=== PATIENT | male | born 1965 | race Caucasian/White ===

== ENCOUNTER 2021-10-15 10:41 | Outpatient (CLI) | payer MEDICAID, SELFPAY ==
[2021-10-15 13:40] LABS: Chloride* 100 mmol/L (96-114); Potassium* 4.4 mmol/L (3.6-5.1); Sodium* 138 mmol/L (135-149)
[2021-10-15 13:42] LABS: Alanine Aminotransferase* 61 U/L (4-50); Carbon Dioxide* 28 mmol/L (20-32); Cholesterol* 167 mg/dL (90-199); Creatinine* 1.1 mg/dL (0.5-1.5); Estimated Glomerular Filt Rate 79 ml/min
[2021-10-15 13:43] LABS: Blood Urea Nitrogen* 15 mg/dL (7-30); Calcium* 9.6 mg/dL (8.4-10.6); Glucose* 114 mg/dL (60-115); HDL Cholesterol* 55 mg/dL (>=40); LDL Cholesterol Calculated 69 mg/dL (<100); Triglycerides* 214 mg/dL (40-149)
[2021-10-15 13:46] LABS: Basophils Absolute Auto 0.03 K/uL (0.00-0.30); Basophils Percent Auto 0.4 % (0.0-3.0); Eosinophils Absolute Auto 0.06 K/uL (0.00-0.50); Eosinophils Percent Auto 0.8 % (0.0-7.0); Hematocrit 52.5 % (37.0-53.0); Immature Granulocytes Abs Auto 0.03 K/uL (0.00-0.30); Lymphocytes Absolute Auto 1.95 K/uL (0.90-2.90); Lymphocytes Percent Auto 26.9 % (20-44); Mean Corpuscular HGB Conc 34 gm/dL (32-36); Mean Corpuscular Hemoglobin 30 pg (26-34); Mean Corpuscular Volume 88 fL (80-100); Monocytes Percent Auto 11.7 % (0.0-11.0); Neutrophils Absolute Auto 4.32 K/uL (1.7-7.0); Neutrophils Percent Auto 59.8 % (42.0-72.0); Platelet Count* 159 K/uL (140-440); RDW Coefficient of Variation % 11.9 % (11.5-15.5); Red Blood Count 5.98 m/uL (4.30-5.90); White Blood Count* 7.24 K/uL (4.50-11.00)
[2021-10-15 13:56] LABS: Slide Review Reflex No
[2021-10-15 14:14] LABS: PSA Screen* 0.39 ng/mL (0.10-4.00)
[2021-10-16 17:01] LABS: Testosterone, Adult Male 129 ng/dL (300-890)
== END 2021-10-15 10:42 | disposition home or self-care (01) ==
PROVIDERS: PCP Family Medicine; Visit Provider Family Medicine
DX: I10 Essential (primary) hypertension (principal); E78.5 Hyperlipidemia, unspecified; E29.1 Testicular hypofunction; Z12.5 Encounter for screening for malignant neoplasm of prostate
CPT/HCPCS: 80048; 80061; 84153; 84403; 84460; 85025

== ENCOUNTER 2022-01-16 07:53 | Outpatient (CLI) | payer MEDICAID, SELFPAY ==
--- OUTSIDE RECORDS SUMMARY | 2022-01-16 07:59 | XMS_ITS | Encounter Summary ---
:1965 Author [facility] Address [address] [address] Care Team Providers Name Role Phone Briana Cabrera PA-C Primary Care Provider Reason for Visit Reason Comments Refill diclofenac (VOLTAREN) 75 MG enteric coated tablet [Pharmacy Med Name: Diclofenac Sodium Oral Table t Delayed Release 75 MG] Encounter Details Date Type Department Care Team Description 03/03/[address] [facility] Briana Cabrera, Ref ill (diclofenac Practice ARLET (VOLTAREN) 75 MG enteric [address] [place] [address] coated tablet [Pharmacy [place], [place] [address] [place], [place] Med Name: Diclofenac [phone] Sodium Oral Tablet [phone] (Wo rk) Delayed Release 75 MG]) Social History Tobacco Use Types Packs/Day Years Used Date Smoking Tobacco: Former Cigarettes 0.5 3 Cigars Smokeless Tobacco: Never Comments: Occasional cigar Alcohol Use Standard Drinks/Week Comments Yes 0 (1 standard drink = 0.6 oz pure alcoho l) Rare Sex Assigned at Date Recorded Not on file documented as of this encounter Nursing Notes Siomara Ivy RN - 03/05/2020 2:19 PM CST Further Assistance Needed on Refill from Clinician RN reviewed. Patient overdue for Qualifying visit and lab(s). Review pended order for accuracy and sign if appropriate, Document if appointment is needed for further refills and Route to Front Line to schedule appointment Requested Prescriptions Pending Prescriptions Disp Refills ??? diclofenac (VOLTAREN) 75 MG enteric coated tablet [Pharmacy Med Name: Diclofenac Sodium Oral Tablet Delayed Release 75 MG] 180 Tablet 0 Sig: TAKE ONE TABLET BY MOUTH TWICE DAILY Siomara Ivy RN 03/05/2020, 2:19 PM S PROMOTION MANAGER Interface, Out Surescripts Prov Query - 03/03/2020 10:48 AM CST diclofenac (VOLTAREN) 75 MG enteric coated tablet [Pharmacy Med Name: Diclofenac Sodium Oral Tablet Delayed Release 75 MG] NSAIDs -> Labs required if chronic use -> A qualifying visit was not found within the last 2 years. -> Cr is overdue (performed 15 months ago, required every 12 months) -> HCT, PLT, and WBC are overdue (performed 55 months ago, required every 12 months) -> HGB is overdue (performed 33 months ago, required every 12 months) Last qualifying visit: None (A recent visit (in Family Practice with DELICIA MARTINEZ) was found) Next scheduled visit: None Last ordered by BRIANA CABRERA M: 02/05/2020 (27 days ago) QTY: 60, Refills: 0, Sig: take one tabletby mouth twice daily (unchanged) Cr: 0.99 mg/dL on 12/14/2018 HCT: 43.3 % on 09/10/2015 HGB: 15.1 g/dL on 07/02/2017 PLT: 256 k/cmm on 09/10/2015 WBC: 7.7 k/cmm on 09/10/2015 Powered by WonderHowTo, Reference: [id number], 03/03/2020 10:48:44 AM Hector CENTENO: WYLIE RN ([id number]) S PROMOTION MANAGER documented in this encounter Plan of Treatment Not on filedocumented as of this encounter Visit Diagnoses Diagnosis Urinary urgency Urgency of urination Right knee pain, unspecified chronicity Chronic low back pain Lumbago documented in this encounter Care Teams Corporate Auditor Relationship Specialty Start Date End Date Briana Cabrera PA-C PCP - General Physician Quality Control Manager 11/29/19 [address] [place] [address] documented as of this encounter
--- OUTSIDE RECORDS SUMMARY | 2022-01-16 07:59 | XMS_ITS | Encounter Summary ---
:1965 Author Organization [facility] Address [address] [address] Care Team Providers Name Role Phone Briana Cabrera PA-C Primary Care Provider Reason for Visit Reason Onset Date Comments Refill Refill 01/19/2020 Encounter Details Date Type Department Care Team Description 01/02/2020 Refill [facility] Briana Cabrera PA-C Refill; Refill [address] [facility] [address] [place], [place] [address] [place] [address] [phone] (Wo rk) Social History Tobacco Use Types Packs/Day Years Used Date Smoking Tobacco: Former Cigarettes 0.5 3 Cigars Smokeless Tobacco: Never Comments: Occasional cigar Alcohol Use Standard Drinks/Week Comments Yes 0 (1 standard drink = 0.6 oz pure alcoho l) Rare Sex Assigned at Date Recorded Not on file documented as of this encounter Nursing Notes Alison Page - 01/19/2020 11:20 AM CST Pt called back in regards to receiving this letter about medication refill. Pt has moved to [place] and has establish care with a provider down there who will take over medication refills. No further action required. Jhoana Mancera - 01/12/2020 4:54 PM CST Medication Refill - Overdue Visit Called patient, was: Unable to reach patient 2nd call attempted. Clinician will need to review refill request. Letter sent. Jhoana Hoang Please route to: (HP) Care Team Pool/ (PN) Clinician RTMENT SPECIALIST Padmaja Yepez - 01/04/2020 1:58 PM CDT Medication Refill - Overdue Visit Called patient, was: Unable to reach patient 1st call attempted. Left message to call back. Padmaja Yepez Briana Cabrera PA-C - 01/04/2020 12:04 PM CDT Please help him schedule RHM and choose new PCP Briana Cabrera PA-C Interface, Out Surescripts Prov Query - 01/02/2020 2:07 PM CDT tolterodine (DETROL) 2 MG tablet [Pharmacy Med Name: Tolterodine Tartrate Oral Tablet 2 MG] Miscellaneous - 12 Month Visit -> A qualifying visit was not found within the last 2 years. Last qualifying visit: None (A recent visit (in Family Practice with DELICIA MARTINEZ) was found) Next scheduled visit: None Last ordered by BRIANA CABRERA: 11/30/2019 (33 days ago) QTY: 60, Refills: 0, Sig: take two tablets by mouth daily (changed but equivalent) Powered by [employer], Reference: [id number], 01/02/2020 2:07:22 PM CDT, Pool: AV REFILL LAVERN ([id number]) RTMENT SPECIALIST documented in this encounter Plan of Treatment Not on filedocumented as of this encounter Visit Diagnoses Diagnosis Urinary urgency Urgency of urination documented in this encounter Care Teams Linen Worker Relationship Specialty Start Date End Date Briana Cabrera PA-C PCP - General Physician Fisheries Specialist 11/29/19 [address] [place] [address] documented as of this encounter
--- OUTSIDE RECORDS SUMMARY | 2022-01-16 07:59 | XMS_ITS | Encounter Summary ---
:1965 Author Organization [facility] Address [address] [address] Care Team Providers Name Role Phone Briana Cabrera PA-C Primary Care Provider Reason for Visit Reason Comments Refill tolterodine (DETROL) 2 MG ta blet [Pharmacy Med Name: Tolterodine Tartrate Oral Tablet 2 MG] Encounter Details Date Type Department Care Team Description 02/02/2020 Refill [facility] Briana Cabrera, Ref ill (tolterodine Practice ARLET (DETROL) 2 MG tablet [address] [facility] [address] [Pharmacy Med Name: [place], [place] [address] [place], [place] Tolterodine Tartrate [phone] Oral Tablet 2 MG]) [phone] (Wo rk) Social History Tobacco Use Types Packs/Day Years Used Date Smoking Tobacco: Former Cigarettes 0.5 3 Cigars Smokeless Tobacco: Never Comments: Occasional cigar Alcohol Use Standard Drinks/Week Comments Yes 0 (1 standard drink = 0.6 oz pure alcoho l) Rare Sex Assigned at Date Recorded Not on file documented as of this encounter Nursing Notes Maria M Yanez - 02/07/2020 10:16 AM CST Medication Refill - Overdue Visit Called patient, was: Unable to reach patient 2nd call attempted. Letter sent Maria M Yanez FIC RATE ANALYST Alison Page - 02/06/2020 11:47 AM CST Medication Refill - Overdue Visit Called patient, was: Unable to reach patient 1st call attempted. Left message to call back. Alison Page Malia Elaine RN - 02/05/2020 9:09 AM CST Further Assistance Needed on Refill from Chief Cloth Finishing Range Operator Patient is overdue for Office visit. Please call patient to schedule a Video Visit and document using .RIAZ. After attempting to schedule patient: Please route to: Clinician/Care Team Hector Requested Prescriptions Pending Prescriptions Disp Refills ??? tolterodine (DETROL) 2 MG tablet [Pharmacy Med Name: Tolterodine Tartrate Oral Tablet 2 MG] 180 Tablet 0 Sig: TAKE TWO TABLETS BY MOUTH DAILY Malia Correia RN 02/05/2020, 9:09 AM FIC RATE ANALYST [place], Out Surescripts Prov Query - 02/02/2020 10:00 AM CST tolterodine (DETROL) 2 MG tablet [Pharmacy Med Name: Tolterodine Tartrate Oral Tablet 2 MG] Miscellaneous - 12 Month Visit -> A qualifying visit was not found within the last 2 years. Last qualifying visit: None (A recent visit (in Family Practice with DELICIA MARTINEZ) was found) Next scheduled visit: None Last ordered by BRIANA CABRERA M: 01/04/2020 (29 days ago) QTY: 60, Refills: 0, Sig: take 2 tablets by mouth once daily. (changed but equivalent) Powered by [employer], Reference: [id number], 02/02/2020 10:00:57 AM Hector CENTENO: AV DIOMEDES PUCKETT ([id number]) FIC RATE ANALYST documented in this encounter Plan of Treatment Not on filedocumented as of this encounter Visit Diagnoses Diagnosis Urinary urgency Urgency of urination documented in this encounter Care Teams Bobbin Handler Relationship Specialty Start Date End Date Briana Cabrera PA-C PCP - General Physician Product Test Engineer 11/29/19 [address] [place] [address] documented as of this encounter
--- OUTSIDE RECORDS SUMMARY | 2022-01-16 07:59 | XMS_ITS | Encounter Summary ---
:1965 Author Organization [facility] Address [address] [address] Care Team Providers Name Role Phone Briana Cabrera PA-C Primary Care Provider Reason for Visit Reason Comments Refill diclofenac (VOLTAREN) 75 MG enteric coated tablet [Pharmacy Med Name: Diclofenac Sodium Oral Table t Delayed Release 75 MG] Encounter Details Date Type Department Care Team Description 04/25/2020 Refill [facility] Briana Cabrera, Ref ill (diclofenac Practice ARLET (VOLTAREN) 75 MG enteric [address] [place] [address] coated tablet [Pharmacy [place], [place] [address] [place], [place] Med Name: Diclofenac [phone] Sodium Oral Tablet [phone] (Wo rk) Delayed Release 75 MG]) Social History Tobacco Use Types Packs/Day Years Used Date Smoking Tobacco: Former Cigarettes 0.5 3 Cigars Smokeless Tobacco: Never Comments: Occasional cigar Alcohol Use Standard Drinks/Week Comments Yes 0 (1 standard drink = 0.6 oz pure alcoho l) Rare Sex Assigned at Date Recorded Not on file documented as of this encounter Nursing Notes Shelbi Koroma RN - 04/26/2020 8:22 AM CST Further Assistance Needed on Refill from Clinician RN reviewed. Patient overdue for Qualifying visit and lab(s).) Review pended order for accuracy and sign if appropriate Shelbi Koroma RN 04/26/2020, 8:23 AM Requested Prescriptions Pending Prescriptions Disp Refills ??? diclofenac (VOLTAREN) 75 MG enteric coated tablet [Pharmacy Med Name: Diclofenac Sodium Oral Tablet Delayed Release 75 MG] 180 Tablet 0 Sig: TAKE ONE TABLET BY MOUTH TWICE DAILY RVISOR BRAKE REPAIR Interface, Out Surescripts Prov Query - 04/25/2020 8:53 AM CST diclofenac (VOLTAREN) 75 MG enteric coated tablet [Pharmacy Med Name: Diclofenac Sodium Oral Tablet Delayed Release 75 MG] NSAIDs -> Labs required if chronic use -> A qualifying visit was not found within the last 2 years. -> Cr is overdue (performed 17 months ago, required every 12 months) -> HCT, PLT, and WBC are overdue (performed over 56 months ago, required every 12 months) -> HGB is overdue (performed over 34 months ago, required every 12 months) Last qualifying visit: None (A recent visit (in Family Practice with DELICIA MARTINEZ) was found) Next scheduled visit: None Last ordered by BRIANA CABRERA M: 03/05/2020 (51 days ago) QTY: 60, Refills: 0, Sig: take one tabletby mouth twice daily (unchanged) Cr: 0.99 mg/dL on 12/14/2018 HCT: 43.3 % on 09/10/2015 HGB: 15.1 g/dL on 07/02/2017 PLT: 256 k/cmm on 09/10/2015 WBC: 7.7 k/cmm on 09/10/2015 Powered by [employer], Reference: [id number], 04/25/2020 8:52:59 AM Hector CENTENO: WYLIE RN ([id number]) documented in this encounter Plan of Treatment Not on filedocumented as of this encounter Visit Diagnoses Diagnosis Right knee pain, unspecified chronicity documented in this encounter Care Teams Project Technician Relationship Specialty Start Date End Date Briana Cabrera PA-C PCP - General Physician Metal Neutralizer 11/29/19 [address] [place] [address] documented as of this encounter
--- OUTSIDE RECORDS SUMMARY | 2022-01-16 07:59 | XMS_ITS | Encounter Summary ---
:1965 Author Organization [facility] Address [address] [address] Care Team Providers Name Role Phone Briana Cabrera PA-C Primary Care Provider Reason for Visit Reason Comments Refill gabapentin (NEURONTIN) 600 M G tablet [Pharmacy Med Name: Gabapentin Oral Tablet 600 MG] Encounter Details Date Type Department Care Team Description 03/29/2020 Refill [facility] Briana Cabrera, Ref ill (gabapentin Practice ARLET (NEURONTIN) 600 MG [address] [place] [address] tablet [Pharmacy Med [place], [place] [address] [place], [place] Name: Gabapentin Oral [phone] Tablet 600 MG]) [phone] (Wo rk) Social History Tobacco Use Types Packs/Day Years Used Date Smoking Tobacco: Former Cigarettes 0.5 3 Cigars Smokeless Tobacco: Never Comments: Occasional cigar Alcohol Use Standard Drinks/Week Comments Yes 0 (1 standard drink = 0.6 oz pure alcoho l) Rare Sex Assigned at Date Recorded Not on file documented as of this encounter Nursing Notes Interface, Out Surescripts Prov Query - 03/29/2020 1:54 PM CST gabapentin (NEURONTIN) 600 MG tablet [Pharmacy Med Name: Gabapentin Oral Tablet 600 MG] None Exists -> Medication cannot be delegated. -> A qualifying visit was not found within the last 2 years. Last qualifying visit: None (A recent visit (in Family Practice with DELICIA MARTINEZ) was found) Next scheduled visit: None Last ordered by BRIANA CABRERA: 03/04/2020 (25 days ago) QTY: 90, Refills: 0, Sig: take one tabletby mouth three times daily (unchanged) Powered by [employer], Reference: [id number], 03/29/2020 1:53:58 PM FIELD CREW CHIEF, Pool: ROB REFILL RN ([id number]) D CREW CHIEF documented in this encounter Plan of Treatment Not on filedocumented as of this encounter Visit Diagnoses Not on filedocumented in this encounter Care Teams Rn Lpn Lvn Relationship Specialty Start Date End Date Briana Cabrera PA-C PCP - General Physician Nickel Plant Operator 11/29/19 [address] [place] [address] documented as of this encounter
--- OUTSIDE RECORDS SUMMARY | 2022-01-16 07:59 | XMS_ITS | Encounter Summary ---
:1965 Author Organization [facility] Address [address] [address] Care Team Providers Name Role Phone Briana Cabrera PA-C Primary Care Provider Reason for Visit Reason Comments Refill tolterodine (DETROL) 2 MG ta blet [Pharmacy Med Name: Tolterodine Tartrate Oral Tablet 2 MG] Encounter Details Date Type Department Care Team Description 04/21/2020 Refill [facility] Briana Cabrera, Ref ill (tolterodine Practice ARLET (DETROL) 2 MG tablet [address] [facility] [address] [facility] [address] [Pharmacy Med Name: [place], [place] [address] [place], [place] Tolterodine Tartrate [phone] [address] Oral Tablet 2 MG]) [phone] (Wo rk) Social History Tobacco Use Types Packs/Day Years Used Date Smoking Tobacco: Former Cigarettes 0.5 3 Cigars Smokeless Tobacco: Never Comments: Occasional cigar Alcohol Use Standard Drinks/Week Comments Yes 0 (1 standard drink = 0.6 oz pure alcoho l) Rare Sex Assigned at Date Recorded Not on file documented as of this encounter Nursing Notes Siomara Ivy RN - 04/23/2020 9:51 AM CST Further Assistance Needed on Refill from Clinician RN reviewed. Patient overdue for Qualifying visit. Review pended order for accuracy and sign if appropriate, Document if appointment is needed for further refills and Route to Front Line to schedule appointment Requested Prescriptions Pending Prescriptions Disp Refills ??? tolterodine (DETROL) 2 MG tablet [Pharmacy Med Name: Tolterodine Tartrate Oral Tablet 2 MG] 180 Tablet 0 Sig: TAKE TWO TABLETS BY MOUTH DAILY Siomara Ivy RN 04/23/2020, 9:51 AM OPATHOLOGIST Interface, Out Jammcard Prov Query - 04/21/2020 1:06 PM CST tolterodine (DETROL) 2 MG tablet [Pharmacy Med Name: Tolterodine Tartrate Oral Tablet 2 MG] Miscellaneous - 12 Month Visit -> A qualifying visit was not found within the last 2 years. Last qualifying visit: None (A recent visit (in Family Practice with DELICIA MARTINEZ) was found) Next scheduled visit: None Last ordered by BRIANA CABRERA: 03/05/2020 (47 days ago) QTY: 60, Refills: 0, Sig: take 2 tablets by mouth once daily. (changed but equivalent) Powered by [employer], Reference: [id number], 04/21/2020 1:06:27 PM NEUROPATHOLOGIST, Pool: AV REFILL RN ([id number]) OPATHOLOGIST documented in this encounter Plan of Treatment Not on filedocumented as of this encounter Visit Diagnoses Diagnosis Urinary urgency Urgency of urination documented in this encounter Care Teams Jig Builder Helper Relationship Specialty Start Date End Date Briana Cabrera, PAAshleyC PCP - General Physician Setter Off 11/29/19 [address] [place] [address] documented as of this encounter
--- OUTSIDE RECORDS SUMMARY | 2022-01-16 07:59 | XMS_ITS | Encounter Summary ---
:1965 Author Organization [facility] Address [address], [place] [address] Care Team Providers Name Role Phone Briana Cabrera PA-C Primary Care Provider Reason for Visit Reason Comments Refill omeprazole (PRILOSEC) 20 MG capsule [Pharmacy Med Name: OMEPRAZOLE 20MG CAPSULES] Encounter Details Date Type Department Care Team Description 07/05/2020 Refill [facility] Briana Cabrera, Ref ill (omeprazole Practice ARLET (PRILOSEC) 20 MG capsule [address] [facility] [address] [Pharmacy Med Name: [place], [place] [address] [place], [place] OMEPRAZOLE 20MG [phone] [address]]) [phone] (Wo rk) Social History Tobacco Use Types Packs/Day Years Used Date Smoking Tobacco: Former Cigarettes 0.5 3 Cigars Smokeless Tobacco: Never Comments: Occasional cigar Alcohol Use Standard Drinks/Week Comments Yes 0 (1 standard drink = 0.6 oz pure alcoho l) Rare Sex Assigned at Date Recorded Not on file documented as of this encounter Nursing Notes Suyapa Rosas RN - 07/05/2020 6:30 PM CDT Further Assistance Needed on Refill from Clinician RN reviewed. Patient overdue for Qualifying visit. Review pended order for accuracy and sign if appropriate and Route to Front Line to schedule appointment Requested Prescriptions Pending Prescriptions Disp Refills ??? omeprazole (PRILOSEC) 20 MG capsule [Pharmacy Med Name: OMEPRAZOLE 20MG CAPSULES] 90 Capsule 0 Sig: TAKE 1 CAPSULE BY MOUTH DAILY Suyapa Rosas RN 07/05/2020 6:30 PM Interface, Out Achaogen Query - 07/05/2020 11:52 AM CDT omeprazole (PRILOSEC) 20 MG capsule [Pharmacy Med Name: OMEPRAZOLE 20MG CAPSULES] Miscellaneous - 12 Month Visit -> A qualifying visit was not found within the last 2 years. Last qualifying visit: None Next scheduled visit: None Last ordered by BRIANA CABRERA: 03/05/2020 (122 days ago) QTY: 30, Refills: 0, Sig: take one capsule by mouth daily one hour before a meal (changed but equivalent) Powered by [employer], Reference: [id number], 07/05/2020 11:52:11 AM CDT, Pool: WYLIE RN ([id number]) documented in this encounter Plan of Treatment Not on filedocumented as of this encounter Visit Diagnoses Not on filedocumented in this encounter Care Teams Stock Holder Relationship Specialty Start Date End Date Briana Cabrera PA-C PCP - General Physician Staff Pharmacist Hospital 11/29/19 [address] [place] [address] documented as of this encounter
--- OUTSIDE RECORDS SUMMARY | 2022-01-16 07:59 | XMS_ITS | Encounter Summary ---
:1965 Author Organization [facility] Address [address], [place] [address] Care Team Providers Name Role Phone Briana Cabrera PA-C Primary Care Provider Reason for Visit Reason Comments Refill tolterodine (DETROL) 2 MG ta blet [Pharmacy Med Name: Tolterodine Tartrate Oral Tablet 2 MG] Encounter Details Date Type Department Care Team Description 11/29/2019 Refill [facility] Briana Cabrera, Ref ill (tolterodine Practice ARLET (DETROL) 2 MG tablet [id number] [facility] [address] [Pharmacy Med Name: [place], [place] [address] [place], [place] Tolterodine Tartrate [phone] Oral Tablet 2 MG]) [phone] (Wo rk) Social History Tobacco Use Types Packs/Day Years Used Date Smoking Tobacco: Former Cigarettes 0.5 3 Cigars Smokeless Tobacco: Never Comments: Occasional cigar Alcohol Use Standard Drinks/Week Comments Yes 0 (1 standard drink = 0.6 oz pure alcoho l) Rare Sex Assigned at Date Recorded Not on file documented as of this encounter Nursing Notes Interface, Out Surescripts Prov Query - 11/29/2019 2:47 PM CDT tolterodine (DETROL) 2 MG tablet [Pharmacy Med Name: Tolterodine Tartrate Oral Tablet 2 MG] Miscellaneous - 12 Month Visit -> A qualifying visit was not found within the last 2 years. Last qualifying visit: None (A recent visit (in Family Practice with DELICIA MARTINEZ) was found) Next scheduled visit: None Last ordered by BRIANA CABRERA M: 08/31/2019 (90 days ago) QTY: 180, Refills: 0, Sig: take 2 tabletsby mouth daily (changed but equivalent) Powered by [employer], Reference: [id number], 11/29/2019 2:47:44 PM CDT, Pool: AV REFILL RN ([id number]) ODUCTION ARTIST documented in this encounter Plan of Treatment Not on filedocumented as of this encounter Visit Diagnoses Diagnosis Urinary urgency Urgency of urination documented in this encounter Care Teams Lithographic Camera Operator Relationship Specialty Start Date End Date Briana Cabrera PA-C PCP - General Physician Pre School Manager 11/29/19 [address] [place] [address] documented as of this encounter
--- OUTSIDE RECORDS SUMMARY | 2022-01-16 07:59 | XMS_ITS | Encounter Summary ---
:1965 [facility] Address [address], [place] [address] Care Team Providers Name Role Phone Briana Cabrera PA-C Primary Care Provider Reason for Visit Reason Comments Refill tolterodine (DETROL) 2 MG ta blet [Pharmacy Med Name: Tolterodine Tartrate Oral Tablet 2 MG]; omeprazole ([place] ILOSEC) 20 MG capsule [Pharmacy Med Name: Omeprazole Oral Capsule Amanda yed Release 20 MG] Encounter Details Date Type Department Care Team Description 03/03/2020 Refill [facility] Briana Cabrera, Ref ill (tolterodine Practice ARLET (DETROL) 2 MG tablet [address] [facility] [address] [address] [Pharmacy Med Name: [place], [place] [address] [place], [place] Tolterodine Tartrate [phone] Oral Tablet 2 MG]; [phone] (Wo rk) omeprazole (PRILOSEC) 20 MG capsul e [Pharmacy Med Name: Omeprazol e Oral Capsule Delayed Release 20 MG]) Social History Tobacco Use Types Packs/Day Years Used Date Smoking Tobacco: Former Cigarettes 0.5 3 Cigars Smokeless Tobacco: Never Comments: Occasional cigar Alcohol Use Standard Drinks/Week Comments Yes 0 (1 standard drink = 0.6 oz pure alcoho l) Rare Sex Assigned at Date Recorded Not on file documented as of this encounter Nursing Notes Maryam Vasquez RN - 03/05/2020 3:34 PM CST Further Assistance Needed on Refill from Clinician RN reviewed. Patient overdue for Qualifying visit. Review pended order for accuracy and sign if appropriate Maryam Vasquez RN 03/05/2020, 3:34 PM Requested Prescriptions Pending Prescriptions Disp Refills ??? tolterodine (DETROL) 2 MG tablet [Pharmacy Med Name: Tolterodine Tartrate Oral Tablet 2 MG] 180 Tablet 0 Sig: take 2 tablets by mouth once daily. ??? omeprazole (PRILOSEC) 20 MG capsule [Pharmacy Med Name: Omeprazole Oral Capsule Delayed Release 20 MG] 90 Capsule 0 Sig: TAKE ONE CAPSULE BY MOUTH DAILY ONE HOUR BEFORE A MEAL TRIC METER TECHNICIAN Interface, Out Surescripts Prov Query - 03/03/2020 10:48 AM CST omeprazole (PRILOSEC) 20 MG capsule [Pharmacy Med Name: Omeprazole Oral Capsule Delayed Release 20 MG] Miscellaneous - 12 Month Visit -> A qualifying visit was not found within the last 2 years. Last qualifying visit: None (A recent visit (in Family Practice with DELICIA MARTINEZ) was found) Next scheduled visit: None Last ordered by BRIANA CABRERA M: 06/30/2019 (247 days ago) QTY: 90, Refills: 0, Sig: take one capsule by mouth daily one hour before a meal (unchanged) Powered by [employer] Reference: [id number], 03/03/2020 10:48:44 AM Hector CENTENO: WYLIE RN ([id number]) tolterodine (DETROL) 2 MG tablet [Pharmacy Med Name: Tolterodine Tartrate Oral Tablet 2 MG] Miscellaneous - 12 Month Visit -> A qualifying visit was not found within the last 2 years. Last qualifying visit: None (A recent visit (in Family Practice with DELICIA MARTINEZ) was found) Next scheduled visit: None Last ordered by BRIANA CABRERA M: 02/08/2020 (24 days ago) QTY: 60, Refills: 0, Sig: take two tablets by mouth daily (changed but equivalent) Powered by [employer] Reference: [id number], 03/03/2020 10:48:44 AM JACOBO, Pool: WYLIE RN ([id number]) TRIC METER TECHNICIAN documented in this encounter Plan of Treatment Not on filedocumented as of this encounter Visit Diagnoses Diagnosis Urinary urgency Urgency of urination documented in this encounter Care Teams Patient Escort Relationship Specialty Start Date End Date Briana Cabrera PA-C PCP - General Physician Applied Psychology Chair 11/29/19 [address] [place] [address] documented as of this encounter
--- OUTSIDE RECORDS SUMMARY | 2022-01-16 07:59 | XMS_ITS | Encounter Summary ---
:1965 Author Organization [facility] Address [address], [place] [address] Care Team Providers Name Role Phone Briana Cabrera PA-C Primary Care Provider Reason for Visit Reason Comments Refill gabapentin (NEURONTIN) 600 M G tablet [Pharmacy Med Name: Gabapentin Oral Tablet 600 MG] Encounter Details Date Type Department Care Team Description 03/03/2020 Refill [facility] Briana Cabrera, Ref ill (gabapentin Practice ARLET (NEURONTIN) 600 MG [address] [address] tablet [Pharmacy Med [place], [place] [address] [place], [place] Name: Gabapentin Oral [phone] Tablet 600 MG]) [phone] (Wo rk) Social History Tobacco Use Types Packs/Day Years Used Date Smoking Tobacco: Former Cigarettes 0.5 3 Cigars Smokeless Tobacco: Never Comments: Occasional cigar Alcohol Use Standard Drinks/Week Comments Yes 0 (1 standard drink = 0.6 oz pure alcoho l) Rare Sex Assigned at Date Recorded Not on file documented as of this encounter Nursing Notes Interface, Out Surescripts Prov Query - 03/03/2020 10:48 AM CST gabapentin (NEURONTIN) 600 MG tablet [Pharmacy Med Name: Gabapentin Oral Tablet 600 MG] None Exists -> Medication cannot be delegated. -> A qualifying visit was not found within the last 2 years. Last qualifying visit: None (A recent visit (in Family Practice with DELICIA MARTINEZ) was found) Next scheduled visit: None Last ordered by BRIANA CABRERA: 11/30/2019 (94 days ago) QTY: 270, Refills: 0, Sig: take one tablet by mouth three times daily (unchanged) Powered by [employer], Reference: [id number], 03/03/2020 10:48:44 AM ASIAN ART CURATOR, Pool: ROB REFILL RN ([id number]) N ART CURATOR documented in this encounter Plan of Treatment Not on filedocumented as of this encounter Visit Diagnoses Diagnosis Chronic low back pain Lumbago documented in this encounter Care Teams Tape Deck Installer Relationship Specialty Start Date End Date Briana Cabrera PA-C PCP - General Physician Cabinet Builder 11/29/19 [address] [place] [address] documented as of this encounter
--- OUTSIDE RECORDS SUMMARY | 2022-01-16 07:59 | XMS_ITS | Clinical Summary ---
:1965 Author Organization [facility] Address [address] [address] Care Team Providers Name Role Phone Briana Vazquez PA-C Primary Care Provider Source Comments You are receiving this document as you are listed as the primary care provider,follow-up provider, or the patient has been referred to you for consultation.This is in compliance with the Medicare and Medicaid EHR Incentive Program,which states Providers who transition their patient to another setting of careor provider of care or refers their patient to another provider of care shouldprovide summarycare record for each transition of care or referral. [facility] Allergies No known active allergies Medications Medication Sig Dispensed Refills Start Date End Date Status Fish Oil Take 900 mg by 90 Each 0 05/03/2012 Acti ve mouth daily. valACYclovir (AKA Take 1 Tab by 60 Tab 0 09/18/2015 Active VALTREX) 500 MG tablet mouth two times a day. multivitamin (AKA Take 1 Tab by 0 09/18/2015 Active THERAGRAN) tablet mouth daily. traZODone (DESYREL) 100 Take 2 Tabs by 180 Tab 0 12/29/2016 Active MG tabletIndications: mouth daily at Sleep bedtime. Indications: Sleep propranolol (INDERAL) Take 10 mg by 5 04/28/2017 Active 10 MG tablet mouth three times a day. buPROPion (WELLBUTRIN Take 150 mg by 0 Active XL) 150 MG 24 hour mouth daily. release tablet desonide (DESOWEN) 0.05 Apply twice 30 g 1 05/27/2017 Active % cream daily as needed OLANZapine (ZYPREXA) 20 Take 1 Tablet by 0 9 Active MG tablet mouth every evening. QUEtiapine (SEROQUEL) 1 tab AM, 1 tab 0 07/11/2018 Active 25 MG tablet Noon, 2 tabs bedtime sildenafil (REVATIO) 20 Take 2-5 Tablets 30 Tablet 6 9 Active MG tablet by mouth . 1 hour prior to sexual activity tamsulosin (FLOMAX) 0.4 TAKE ONE CAPSULE 90 Capsule 2 12/13/19 19 Active MG CAPS BY MOUTH DAILY capsuleIndications: Urinary urgency atorvastatin (LIPITOR) Take 1 Tablet by 90 Tablet 3 08/07/2019 Active 20 MG mouth daily. tabletIndications: Hyperlipidemia with target LDL less than 130 (HRC) lisinopril (ZESTRIL) 10 Take 1 Tablet by 90 Tablet 3 0 Active MG tabletIndications: mouth daily. Essential hypertension (HRC) tolterodine (DETROL) 2 take 2 tablets 60 Tablet 0 03/05/2020 Active MG tabletIndications: by mouth once Urinary urgency daily. diclofenac (VOLTAREN) TAKE ONE TABLET 60 Tablet 0 03/05/2020 Active 75 MG enteric coated BY MOUTH TWICE tabletIndications: DAILY Right knee pain, unspecified chronicity gabapentin (NEURONTIN) TAKE ONE TABLET 90 Tablet 0 03/04/2020 Active 600 MG BY MOUTH THREE tabletIndications: TIMES DAILY Chronic low back pain omeprazole (PRILOSEC) TAKE ONE CAPSULE 30 Capsule 0 03/05/2020 Active 20 MG capsule BY MOUTH DAILY ONE HOUR BEFORE A MEAL Active Problems Problem Noted Date Erectile dysfunction 07/11/2018 Psychosis 09/17/2015 Anxiety disorder 09/11/2015 Bipolar affective disorder 09/11/2015 Overview: Psychiatrist is Coretta Hawkins at [facility] although does video calls with her 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 Alcohol dependence 09/11/2015 Migraine headache 11/19/2009 Hypertension 02/27/2009 Hyperlipidemia with target LDL less than 130 9 Overview: ICD 10 Genital herpes 02/27/2009 Generalized headaches 02/27/2009 Chronic low back pain 02/27/2009 GERD (gastroesophageal reflux disease) 02/27/2009 Immunizations Name Administration Dates Next Due HepB Adult (Engerix-B, 20+ yrs, 3 dose 12/10/2017, 8, 01/31/2016 series) Td 05/21/2003 Tdap 05/03/2012 Zoster RZV (Shingrix) 05/09/2018, 05/27/2017 Family History Medical History Relation Name Comments Hypertension Father Hypertension Brother 1 Migraines Brother 2 Alcohol Abuse Son 1 Depression Son 1 Suicide Son 1 Drug Abuse Son 2 Relation Name Status Comments Father Alive Mother Alive Brother 1 Alive Brother 2 (Age 53) MVA Brother 3 Alive Brother 4 Alive Brother 5 Alive Sister 1 1975 Sister 2 Alive Son 1 (Age 26) Son 2 Alive Social History Tobacco Use Types Packs/Day Years Used Date Smoking Tobacco: Former Cigarettes 0.5 3 Cigars Smokeless Tobacco: Never Comments: Occasional cigar Alcohol Use Standard Drinks/Week Comments Yes 0 (1 standard drink = 0.6 oz pure alcoho l) Rare Sex Assigned at Date Recorded Not on file Last Filed Vital Signs Vital Sign Reading Time Taken Comments Blood Pressure 115/58 12/14/2018 2:24 PM CDT Pulse 63 12/14/2018 2:24 PM CDT Temperature 36.5 ??C (97.7 ??F) 12/14/2018 2:24 PM CDT Respiratory Rate 20 05/09/2018 10:03 AM TAPE DUPLICATOR Oxygen Saturation 97% 12/14/2018 2:24 PM CDT Inhaled Oxygen Concentration - - Weight 105.7 kg (233 lb) 12/14/2018 2:24 PM CDT Height 185.4 cm (6' 1) 12/27/2018 1:51 PM CDT Body Mass Index 30.74 05/27/2017 1:39 PM CDT Plan of Treatment Health Maintenance Due Date Last Done Comments Colon Cancer Screening Plan 1965 Due PSA Screening Discussion 1965 COVID-19 Vaccine (#1) 06/08/1966 Pneumococcal (1 - PCV) 12/09/1971 Adult Preventive Visit 12/09/1983 Influenza (#1) 2021 01/08/2006, 01/08/2005, 12/28/2002, Additional history exists DTaP/Tdap/Td (3 - Tdap) 05/03/2022 05/03/2012, 05/01/2010, 05/21/2003 Cholesterol 06/22/2023 06/21/2018, 12/10/2017, 05/03/2017, Additional history exists HIV Screening (Preventive Completed 05/27/2017, 09/17/2015 , Services) 08/12/2009 Hep C Screening (Preventive Completed 05/27/2017, 08/13/19 10 Services) HepB Completed 12/10/2017, 05/27/2017, 01/31/2016 Zoster/Shingles Completed 05/09/2018, 05/27/2017 HepA Aged Out No longer eligib le based on patient 's age to complete this topic Hib Aged Out No longer eligib le based on patient 's age to complete this topic IPV (Polio) Aged Out No longer eligib le based on patient 's age to complete this topic MCV4 Aged Out No longer eligib le based on patient 's age to complete this topic Insurance Payer Benefit Plan Subscriber ID Effective Phone Address Typ e / Group Dates JULIO FR[place] JULIO [place] [id number] 2018-Pre [address] Med icaid sent [id number] [place] [address] [employer] [place] [address] [facility] [id number] 2018-Pres Medicaid DENTAL PLAN ADULT DENTAL ent Advance Directives Latest Code Status on File Code Status Date Activated Date Inactivated Comments Full Code 09/11/2015 5:39 PM 09/18/2015 2:12 PM Care Teams Sports Athletic Trainer Relationship Specialty Start Date End Date Briana Vazquez PA-C PCP - General Physician Clinical Liaison 11/29/19 [address] [place] [address]
--- OUTSIDE RECORDS SUMMARY | 2022-01-16 07:59 | XMS_ITS | Encounter Summary ---
:1965 [facility] Address [address], [place] [address] Care Team Providers Name Role Phone Briana Cabrera PA-C Primary Care Provider Reason for Visit Reason Comments Refill tolterodine (DETROL) 2 MG ta blet [Pharmacy Med Name: Tolterodine Tartrate Oral Tablet 2 MG]; diclofenac (VO LTAREN) 75 MG enteric coated tablet [Pharmacy Med Name: Diclofenac Sodium Oral Tablet Delayed Release 75 MG] Encounter Details Date Type Department Care Team Description 03/29/2020 Refill [facility] Briana Cabrera, Ref ill (tolterodine Practice ARLET (DETROL) 2 MG tablet [id number] [facility] [address] [facility] [Pharmacy Med Name: [place], [place] [address] [place], [place] Tolterodine Tartrate [phone] Oral Tablet 2 MG]; [phone] (Wo rk) diclofenac (VOLTAREN) 75 MG enteri c coated tablet [Pharmacy Med N trevor: Diclofenac Sodi um Oral Tablet Delayed Release 75 MG]) Social History Tobacco Use Types Packs/Day Years Used Date Smoking Tobacco: Former Cigarettes 0.5 3 Cigars Smokeless Tobacco: Never Comments: Occasional cigar Alcohol Use Standard Drinks/Week Comments Yes 0 (1 standard drink = 0.6 oz pure alcoho l) Rare Sex Assigned at Date Recorded Not on file documented as of this encounter Nursing Notes Jessica Baez RN - 04/01/2020 11:45 AM CST Further Assistance Needed on Refill from Clinician RN reviewed. Patient overdue for Qualifying visit and lab(s). Review pended order for accuracy and sign if appropriate Requested Prescriptions Pending Prescriptions Disp Refills ??? diclofenac (VOLTAREN) 75 MG enteric coated tablet [Pharmacy Med Name: Diclofenac Sodium Oral Tablet Delayed Release 75 MG] 180 Tablet 0 Sig: TAKE ONE TABLET BY MOUTH TWICE DAILY ??? tolterodine (DETROL) 2 MG tablet [Pharmacy Med Name: Tolterodine Tartrate Oral Tablet 2 MG] 180 Tablet 0 Sig: TAKE TWO TABLETS BY MOUTH DAILY Jessica Baez RN 04/01/2020, 11:46 AM RIDER Interface, Out Surescripts Prov Query - 03/29/2020 1:54 PM CST diclofenac (VOLTAREN) 75 MG enteric coated tablet [Pharmacy Med Name: Diclofenac Sodium Oral Tablet Delayed Release 75 MG] NSAIDs -> Labs required if chronic use -> A qualifying visit was not found within the last 2 years. -> Cr is overdue (performed 16 months ago, required every 12 months) -> HCT, PLT, and WBC are overdue (performed over 55 months ago, required every 12 months) -> HGB is overdue (performed over 33 months ago, required every 12 months) Last qualifying visit: None (A recent visit (in Family Practice with DELICIA MARTINEZ) was found) Next scheduled visit: None Last ordered by BRIANA CABRERA: 03/05/2020 (24 days ago) QTY: 60, Refills: 0, Sig: take one tabletby mouth twice daily (unchanged) Cr: 0.99 mg/dL on 12/14/2018 HCT: 43.3 % on 09/10/2015 HGB: 15.1 g/dL on 07/02/2017 PLT: 256 k/cmm on 09/10/2015 WBC: 7.7 k/cmm on 09/10/2015 Powered by [employer], Reference: [id number], 03/29/2020 1:53:58 PM Hector CENTENO: WYLIE RN ([id number]) tolterodine (DETROL) 2 MG tablet [Pharmacy Med Name: Tolterodine Tartrate Oral Tablet 2 MG] Miscellaneous - 12 Month Visit -> The request contains a note from the pharmacy. -> A qualifying visit was not found within the last 2 years. Last qualifying visit: None (A recent visit (in Family Practice with DELICIA MARTINEZ) was found) Next scheduled visit: None Last ordered by BRIANA CABRERA M: 03/05/2020 (24 days ago) QTY: 60, Refills: 0, Sig: take 2 tablets by mouth once daily. (changed but equivalent) Powered by [employer], Reference: [id number], 03/29/2020 1:53:58 PM Hector CENTENO: WYLIE RN ([id number]) RIDER documented in this encounter Plan of Treatment Not on filedocumented as of this encounter Visit Diagnoses Diagnosis Urinary urgency Urgency of urination Chronic low back pain Lumbago Right knee pain, unspecified chronicity documented in this encounter Care Teams Destaticizer Feeder Relationship Specialty Start Date End Date Briana Cabrera PA-C PCP - General Physician Water Pump Servicer 11/29/19 [address] [place] [address] documented as of this encounter
--- OUTSIDE RECORDS SUMMARY | 2022-01-16 07:59 | XMS_ITS | Encounter Summary ---
:1965 Author Organization [facility] Address [address], [place] [address] Care Team Providers Name Role Phone Briana Cabrera PA-C Primary Care Provider Reason for Visit Reason Comments Refill tolterodine (DETROL) 2 MG ta blet [Pharmacy Med Name: Tolterodine Tartrate Oral Tablet 2 MG] Encounter Details Date Type Department Care Team Description 03/29/[address] [facility] Briana Cabrera, Ref ill (tolterodine Practice ARLET (DETROL) 2 MG tablet [id number] [facility] [address] [facility] [Pharmacy Med Name: [place], [place] [address] [place], [place] Tolterodine Tartrate [phone] Oral Tablet 2 MG]) [phone] (Wo rk) Social History Tobacco Use Types Packs/Day Years Used Date Smoking Tobacco: Former Cigarettes 0.5 3 Cigars Smokeless Tobacco: Never Comments: Occasional cigar Alcohol Use Standard Drinks/Week Comments Yes 0 (1 standard drink = 0.6 oz pure alcoho l) Rare Sex Assigned at Date Recorded Not on file documented as of this encounter Nursing Notes Malia Correia RN - 04/01/2020 10:21 AM CST Further Assistance Needed on Refill from Clinician RN reviewed. Patient overdue for Qualifying visit. Review pended order for accuracy and sign if appropriate and Document if appointment is needed for further refills Requested Prescriptions Pending Prescriptions Disp Refills tolterodine (DETROL) 2 MG tablet [Pharmacy Med Name: Tolterodine Tartrate Oral Tablet 2 MG] 180 Tablet 0 Sig: TAKE TWO TABLETS BY MOUTH DAILY Malia Correia RN 04/01/2020, 10:22 AM D BANK CREDIT CLERK Interface, Out [email or web address] Prov Query - 03/29/2020 1:54 PM CST tolterodine (DETROL) 2 MG tablet [...] once daily. (changed but equivalent) Powered by [employer], Reference: [id number], 03/29/2020 1:53:58 PM BLOOD BANK CREDIT CLERK, Pool: WYLIE RN ([id number]) D BANK CREDIT CLERK documented in this encounter Plan of Treatment Not on filedocumented as of this encounter Visit Diagnoses Not on filedocumented in this encounter Care Teams Criminal Judge Relationship Specialty Start Date End Date Briana Cabrera, PAAshleyC PCP - General Physician Gut Puller 11/29/19 [address] [place] [address] documented as of this encounter
--- OUTSIDE RECORDS SUMMARY | 2022-01-16 07:59 | XMS_ITS | Encounter Summary ---
:1965 Author Organization [facility] Address [address] [address] Care Team Providers Name Role Phone Briana Cabrera PA-C Primary Care Provider Reason for Visit Reason Comments Refill diclofenac (VOLTAREN) 75 MG enteric coated tablet [Pharmacy Med Name: Diclofenac Sodium Oral Table t Delayed Release 75 MG] Encounter Details Date Type Department Care Team Description 02/02/2020 Refill [facility] Briana Cabrera, Ref ill (diclofenac Practice ARLET (VOLTAREN) 75 MG enteric [address] [address] coated tablet [Pharmacy [place], [place] [address] [place], [place] Med Name: Diclofenac [phone] Sodium Oral Tablet [phone] (Wo rk) Delayed Release 75 MG]) Social [...] Notes Interface, Out Surescripts Prov Query - 02/02/2020 10:00 AM CST diclofenac (VOLTAREN) 75 MG enteric coated tablet [Pharmacy Med Name: Diclofenac Sodium Oral Tablet Delayed Release 75 MG] NSAIDs -> Labs required if chronic use -> A qualifying visit was not found within the last 2 years. -> Cr is overdue (performed 14 months ago, required every 12 months) -> HCT, PLT, and WBC are overdue (performed 54 months ago, required every 12 months) -> HGB is overdue (performed 32 months ago, required every 12 months) Last qualifying visit: None (A recent visit (in Family Practice with DELICIA MARTINEZ) was found) Next scheduled visit: None Last ordered by BRIANA CABRERA: 10/31/2019 (94 days ago) QTY: 180, Refills: 0, Sig: take one tablet by mouth twice daily (unchanged) Cr: 0.99 mg/dL on 12/14/2018 HCT: 43.3 % on 09/10/2015 HGB: 15.1 g/dL on 07/02/2017 PLT: 256 k/cmm on 09/10/2015 WBC: 7.7 k/cmm on 09/10/2015 Powered by [employer], Reference: [id number], 02/02/2020 10:00:57 AM GROUNDS KEEPER, Pool: WYLIE RN ([id number]) NDS KEEPER documented in this encounter Plan of Treatment Not on filedocumented as of this encounter Visit Diagnoses Diagnosis Encounter for long-term (current) use of medications - Primary Encounter for long-term (current) use of other medications Right knee pain, unspecified chronicity Urinary urgency Urgency of urination documented in this encounter Care Teams Roof Promenade Tile Setter Relationship Specialty Start Date End Date Briana Cabrera, PAAshleyC PCP - General Physician Cmm Technician 11/29/19 [address] [place] [address] documented as of this encounter
--- OUTSIDE RECORDS SUMMARY | 2022-01-16 07:59 | XMS_ITS | Encounter Summary ---
:1965 Author Organization [facility] Address [address] [address] Care Team Providers Name Role Phone Briana Cabrera PA-C Primary Care Provider Reason for Visit Reason Comments Refill gabapentin (NEURONTIN) 600 M G tablet [Pharmacy Med Name: Gabapentin Oral Tablet 600 MG] Encounter Details Date Type Department Care Team Description 04/25/2020 Refill [facility] Briana Cabrera, Ref ill (gabapentin Practice ARLET (NEURONTIN) 600 MG [address] tablet [Pharmacy Med [place], [place] [address] [place], [place] Name: Gabapentin Oral [phone] [id number] Tablet 600 MG]) [phone] (Wo rk) Social History Tobacco Use Types Packs/Day Years Used Date Smoking Tobacco: Former Cigarettes 0.5 3 Cigars Smokeless Tobacco: Never Comments: Occasional cigar Alcohol Use Standard Drinks/Week Comments Yes 0 (1 standard drink = 0.6 oz pure alcoho l) Rare Sex Assigned at Date Recorded Not on file documented as of this encounter Nursing Notes Alison Page - 04/29/2020 11:22 AM CST Medication Refill - Overdue Visit Called patient, was: Unable to reach patient 2nd call attempted. Clinician will need to review refill request. Letter Sent. Alison Page Please route to: (HP) Care Team Pool/ (PN) Clinician ER HAND Alison Page - 04/25/2020 3:42 PM CST Medication Refill - Overdue Visit Called patient, was: Unable to reach patient 1st call attempted. Left message to call back. Alison Page ER HAND Briana Cabrera PA-C - 04/25/2020 9:53 AM CST Please let him know he needs to be seen to continue his prescriptions. Briana Cabrera PA-C ER HAND Interface, Out Surescripts Prov Query - 04/25/2020 9:00 AM CST gabapentin (NEURONTIN) 600 MG tablet [Pharmacy Med Name: Gabapentin Oral Tablet 600 MG] None Exists -> Medication cannot be delegated. -> A qualifying visit was not found within the last 2 years. Last qualifying visit: None (A recent visit (in Family Practice with CAMILO MARTINEZ) was found) Next scheduled visit: None Last ordered by BRIANA CABRERA: 03/04/2020 (52 days ago) QTY: 90, Refills: 0, Sig: take one tabletby mouth three times daily (unchanged) Powered by [employer], Reference: [id number], 04/25/2020 9:00:04 AM Hector CENTENO: WYLIE RN ([id number]) documented in this encounter Plan of Treatment Not on filedocumented as of this encounter Visit Diagnoses Not on filedocumented in this encounter Care Teams Geological Survey Field Assistant Relationship Specialty Start Date End Date Briana Cabrera PA-C PCP - General Physician Sprinkler Helper 11/29/19 [address] [place] [address] documented as of this encounter
--- OUTSIDE RECORDS SUMMARY | 2022-01-16 07:59 | XMS_ITS | Encounter Summary ---
:1965 Author Organization [facility] Address [address] [place] [address] Care Team Providers Name Role Phone Briana Cabrera PA-C Primary Care Provider Encounter Details Date Type Department Care Team Description 11/29/2019 Refill [facility] Briana Cabrera PA-C [address] [address] [place] [address] [phone] (Wo rk) Social History Tobacco Use Types Packs/Day Years Used Date Smoking Tobacco: Former Cigarettes 0.5 3 Cigars Smokeless Tobacco: Never Comments: Occasional cigar Alcohol Use Standard Drinks/Week Comments Yes 0 (1 standard drink = 0.6 oz pure alcoho l) Rare Sex Assigned at Date Recorded Not on file documented as of this encounter Nursing Notes Yolande Muhammad - 12/03/2019 10:39 AM CDT Medication Refill - Overdue Visit Called patient, was: Unable to reach patient 2nd call attempted. Clinician will need to review refill request. Yolande Muhammad Please route to: (HP) Care Team Pool/ (PN) Clinician Jhoana Hoang - 12/01/2019 1:05 PM CDT Medication Refill - Overdue Visit Called patient, was: Unable to reach patient 1st call attempted. Left message to call back. Jhoana Hoang Briana Cabrera PA-C - 11/30/2019 12:26 PM CDT Med refilled but due for RHM or OV Briana Cabrera PA-C Interface, Out [employer] Prov Query - 11/29/2019 2:47 PM CDT gabapentin (NEURONTIN) 600 MG tablet [Pharmacy Med Name: Gabapentin Oral Tablet 600 MG] None Exists -> Medication cannot be delegated. -> A qualifying visit was not found within the last 2 years. Last qualifying visit: None (A recent visit (in Family Practice with DELICIA MARTINEZ) was found) Next scheduled visit: None Last ordered by BRIANA CABRERA: 08/28/2019 (93 days ago) QTY: 270, Refills: 0, Sig: take 1 tablet by mouth 3 times daily (changed but equivalent) Powered by [employer], Reference: [id number], 11/29/2019 2:47:44 PM CDT, Pool: ROB REFFAM PUCKETT ([id number]) documented in this encounter Plan of Treatment Not on filedocumented as of this encounter Visit Diagnoses Diagnosis Chronic low back pain Lumbago Urinary urgency Urgency of urination documented in this encounter Care Teams Endodontist Relationship Specialty Start Date End Date Briana Cabrera PA-C PCP - General Physician Maintenance Technician 2Nd Shift 11/29/19 [address] [place] [address] documented as of this encounter
--- OUTSIDE RECORDS SUMMARY | 2022-01-16 07:59 | XMS_ITS | Clinical Summary ---
:1965 Author Organization [employer] [place] [address] Care Team Providers Name Role Phone Ángel Massey MD Primary Care Provider [phone] Allergies No known active allergies Medications Medication Sig Dispensed Refills Start Date End Date Status traZODone (DESYREL) Take 2 tablets by 60 tablet 0 10/07/2015 Active 100 mg mouth at bedtime. tabletIndications: Schizophrenia, unspecified type (HC) omeprazole (PRILOSEC) Take 1 capsule by 30 capsule 0 6 Active 20 mg Delayed-Release mouth once daily capsuleIndications: before a meal. Gastroesophageal reflux disease without esophagitis gabapentin (NEURONTIN) TAKE ONE TABLET BY 0 12/13/19 19 Active 600 mg tablet MOUTH THREE TIMES DAILY tamsulosin (FLOMAX) TAKE ONE CAPSULE 0 12/12/2018 Active 0.4 mg capsule BY MOUTH DAILY atorvastatin (LIPITOR) Take 20 mg by 0 08/07/2019 Active 20 mg tablet mouth once daily. escitalopram oxalate Take 10 mg by 0 08/28/2019 Active (LEXAPRO) 10 mg tablet mouth once daily. prazosin (MINIPRESS) 2 Take 2 mg by mouth 0 08/28/19 20 Active mg capsule at bedtime. buPROPion (WELLBUTRIN Take 300 mg by 0 Active XL) 300 mg mouth once daily. Extended-Release tablet testosterone cypionate Inject 200 mg 0 09/02/2019 Active (DEPO-TESTOSTERONE) intramuscular 200 mg/mL injection every 2 weeks. QUEtiapine (SEROQUEL) Take 200 mg by 0 08/28/2019 Active 100 mg tablet mouth at bedtime. diclofenac (VOLTAREN) TAKE ONE TABLET BY 0 0 Active 75 mg delayed-release MOUTH TWICE DAILY tablet metoprolol succinate Take 100 mg by 0 07/06/2020 Active (TOPROL XL) 100 mg mouth once daily. 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 06/02/1999 Resolved Problems Problem Noted Date Resolved Date DERMATITIS 04/14/2005 11/05/2005 RASH 04/14/2005 11/05/2005 SPRAIN - ANKLE 09/23/1999 11/05/2005 HERPES, GENITAL 04/08/1999 11/05/2005 Immunizations Name Administration Dates Next Due COVID-19 vaccine (Moderna 06/21/2020, 05/24/2020 100mcg/0.5mL) PF, MDV Hepatitis B (Adult) 12/10/2017, 05/27/2017, 01/31/2016 Influenza Virus, Unspecified 01/08/2006, 01/08/2005, 002, 12/22/1999 Influenza, IIV3 (Age >=3 years) 01/08/2006, 01/08/2005, 12/07, 01/04/2002, 12/22/1999 Td (Age >=7 Years) 05/21/2003, 07/22/1999 Td, Preservative Free (age >= 7 05/21/2003, 07/22/1999 Years) Tdap 09/14/2013, 05/03/2012, 05/01/2010 Zoster (Shingrix-RZV, recombinant) 05/09/2018, 05/27/2017 Family History Medical History Relation Name Comments Dementia Father Genetic Other 1 BACK PAIN Genetic Other 2 BACK PAIN~negati ve for anesthetic problems or CAD. Relation Name Status Comments Father Other 1 Other 2 Social History Tobacco Use Types Packs/Day Years Used Date Former Smoker Cigarettes 0 Smokeless Tobacco: Never Used Comments: when he was 24 years old he qu it Alcohol Use Standard Drinks/Week Comments Yes 5 (1 standard drink = 0.6 oz pure alcoho l) 3-4x a week 2-3x at a time Alcohol Habits Answer Date Recorded How often do you have a drink containing Not asked alcohol? How many drinks containing alcohol do you Not asked have on a typical day when you are drinking? How often do you have six or more drinks on Not asked one occasion? Comment: 3-4x a week 2-3x at a time 10/01/2020 Sex Assigned at Date Recorded Not on file Obstetrics History Last Filed Vital Signs Vital Sign Reading Time Taken Comments Blood Pressure 164/84 10/01/2020 2:11 PM CDT Pulse 62 10/01/2020 2:11 PM CDT Temperature 36.8 ??C (98.2 ??F) 10/01/2020 2:11 PM CDT Respiratory Rate 14 09/08/2019 4:42 AM CDT Oxygen Saturation 95% 09/08/2019 4:42 AM CDT Inhaled Oxygen Concentration - - Weight 99.8 kg (220 lb) 10/01/2020 2:11 PM CDT Height 185.4 cm (6' 1) 10/01/2020 2:11 PM CDT Body Mass Index 29.03 10/01/2020 2:11 PM CDT Plan of Treatment Health Maintenance Due Date Last Done Comments Depression screening for age 12+ 1977 Hepatitis C screening for age 1012/09/1983 18-79 Colonoscopy through age 75 2010 Lipids for age 45-75 2010 06/04/2003, 06/04/2003 COVID-19 vaccine series (3 - 08/16/2020 06/21/2020, 021 Booster for Moderna series) BMI (ht and wt on same day) for 10/01/2021 10/01/2020, 07/06 age 18+ Influenza for age 50-64 11/06/2021 01/08/2006, 01/08/2006, 01/08/2005, Additional history exists Tetanus booster 09/15/2023 09/14/2013, 05/03/2012, 05/01/2010, Additional history exists Tdap Completed 09/14/2013, 05/03/2012, 05/01/2010 Zoster (shingles) series for age Completed 05/09/2018, 50+ Medical Devices Implanted Type Area Interface Developer Device Shelf Model / Identifier Expiration Date Ser ial / Lot Plate Cerv 2lvl 45mm [place] Vision Elite Ant - [id number] Spine Medtronic [id number] / Implanted: Qty: 1 on 09/07/2019 by Dane Guzman MD at [facility] Spine/Ortho / Results Not on filefrom Last 3 Months Insurance Payer Benefit Plan / Subscriber ID Effective Dates Phone Addre ss Type Group WC WORKERS WC WORKERS COMP [id number] Effective for [id number] [address] all dates [id number] [place] [address] UCARE MR UCARE MEDICARE [id number] 2020-Presen [address] [place] [address] MEDICAID [place] MEDICAID [id number] 2018-Prese [address] [place] [address] JennyNicanor E Workers Comp Self 1965 [address] (Home) [place], [place] [phone] (Work) [place]ES Occ [id number] [place] (Home) W [phone] Nik SEARS N (Work) [id number] [address] Occ Employer 03/08/2000 [employer] [facility] (Home) DEPT [id number] SurendraSheridan [phone] [id number] [place] (Work) [place] [id number] Advance Directives Latest Code Status on File Code Status Date Activated Date Inactivated Comments Full Code 09/07/2019 1:53 PM 09/08/2019 2:27 PM Code Status Discussion: Not Discussed Per Advance Care Plan Full Code 09/07/2019 6:00 AM 09/07/2019 1:53 PM Code Status Discussion: Not Discussed Per Advance Care Plan Full Code 09/24/2015 1:25 PM 10/07/2015 2:42 PM Care Teams Weight Count Operator Relationship Specialty Start Date End Date Ángel Massey MD PCP - General Family Practice 06/26/191999 [place] [address]
--- OUTSIDE RECORDS SUMMARY | 2022-01-16 07:59 | XMS_ITS | Encounter Summary ---
:1965 Author Organization [employer] Address [address], [place] [address] Care Team Providers Name Role Phone Briana Cabrera PA-C Primary Care Provider Reason for Visit Reason Comments Refill tolterodine (DETROL) 2 MG ta blet [Pharmacy Med Name: Tolterodine Tartrate Oral Tablet 2 MG]; diclofenac (VO LTAREN) 75 MG enteric coated tablet [Pharmacy Med Name: Diclofenac Sodium Oral Tablet Delayed Release 75 MG] Encounter Details Date Type Department Care Team Description 04/25/2020 Refill [facility] Briana Cabrera, Ref ill (tolterodine Practice ARLET (DETROL) 2 MG tablet [address] [facility] [address] [facility] [Pharmacy Med Name: [place], [place] [address] [place], [place] Tolterodine Tartrate [phone] [id number] Oral Tablet 2 MG]; [phone] (Wo rk) diclofenac (VOLTAREN) 75 MG enteri [...] encounter Nursing Notes Jessica Baez RN - 04/26/2020 8:18 AM CST Further Assistance Needed on Refill [...] TABLETS BY MOUTH DAILY Jessica Baez RN 04/26/2020, 8:18 AM SION ANALYST Interface, Out Surescripts Prov Query - 04/25/2020 9:00 AM CST diclofenac (VOLTAREN) 75 MG enteric coated tablet [Pharmacy Med Name: Diclofenac Sodium Oral Tablet Delayed Release 75 MG] NSAIDs -> The request contains a note from the pharmacy. -> Labs required if chronic use -> [...] None Last ordered by BRIANA CABRERA: 03/05/2020 (51 days ago) QTY: 60, Refills: 0, Sig: take one tabletby mouth twice daily (unchanged) Cr: 0.99 mg/dL on 12/14/2018 HCT: 43.3 % on 09/10/2015 HGB: 15.1 g/dL on 07/02/2017 PLT: 256 k/cmm on 09/10/2015 WBC: 7.7 k/cmm on 09/10/2015 Powered by [employer], Reference: [id number], 04/25/2020 9:00:04 AM Hector CENTENO: WYLIE RN ([id number]) tolterodine (DETROL) 2 MG tablet [Pharmacy Med Name: Tolterodine Tartrate Oral Tablet 2 MG] Miscellaneous - 12 Month Visit -> The request contains a note from the pharmacy. -> A qualifying visit was not found within the last 2 years. Last qualifying visit: None (A recent visit (in Family Practice with DELICIA MARTINEZ) was found) Next scheduled visit: None Last ordered by RBIANA CABRERA M: 03/05/2020 (51 days ago) QTY: 60, Refills: 0, Sig: take 2 tablets by mouth once daily. (changed but equivalent) Powered by [employer], Reference: [id number], 04/25/2020 9:00:04 AM Hector CENTENO: WYLIE RN ([id number]) documented in this encounter Plan of Treatment Not on filedocumented as of this encounter Visit Diagnoses Diagnosis Chronic low back pain Lumbago Right knee pain, unspecified chronicity Urinary urgency Urgency of urination documented in this encounter Care Teams Inpatient Services Director Relationship Specialty Start Date End Date Briana Cabrera PA-C PCP - General Physician Aromatherapist 11/29/19 [address] [place] [address] documented as of this encounter
--- OUTSIDE RECORDS SUMMARY | 2022-01-16 07:59 | XMS_ITS | Encounter Summary ---
:1965 Author Organization [facility] Address [address], [place] [address] Care Team Providers Name Role Phone Found, No Pcp MD Primary Care Provider Unavailable Reason for Visit Reason Comments Refill diclofenac (VOLTAREN) 75 MG enteric coated tablet [Pharmacy Med Name: Diclofenac Sodium Oral Table t Delayed Release 75 MG] Encounter Details Date Type Department Care Team Description 10/27/2019 Refill [facility] Briana Cabrera, Ref ill (diclofenac Practice PA-C (VOLTAREN) 75 MG enteric [address] coated tablet [Pharmacy [place], [place] [address] [place], [place] Med Name: Diclofenac [phone] [address] Sodium Oral Tablet [phone] (Wo rk) Delayed Release 75 MG]) Social History Tobacco Use Types Packs/Day Years Used Date Smoking Tobacco: Former Cigarettes 0.5 3 Cigars Smokeless Tobacco: Never Comments: Occasional cigar Alcohol Use Standard Drinks/Week Comments Yes 0 (1 standard drink = 0.6 oz pure alcoho l) Rare Sex Assigned at Date Recorded Not on file documented as of this encounter Nursing Notes Jhoana Hoang - 10/31/2019 12:09 PM CDT Will route to [facility] to review Jhoana Hoang 10/31/2019, 12:10 PM Lisa Carnes RN - 10/27/2019 4:56 PM CDT No assigned PCP, will route to clinical rehabilitation coordinator to assign PCP then route to clinician to review/signmedication. Lisa Carnes RN Interface, Out Jayme Prov Query - 10/27/2019 10:31 AM CDT diclofenac (VOLTAREN) 75 MG enteric coated tablet [Pharmacy Med Name: Diclofenac Sodium Oral Tablet Delayed Release 75 MG] NSAIDs -> Labs required if chronic use -> A qualifying visit was not found within the last 2 years. -> HCT, PLT, and WBC are overdue (performed over 50 months ago, required every 12 months) -> HGB is overdue (performed over 28 months ago, required every 12 months) Last qualifying visit: None (A recent visit (in Family Practice with DELICIA MARTINEZ) was found) Next scheduled visit: None Last ordered by BRIANA CABRERA M: 08/07/2019 (81 days ago) QTY: 180, Refills: 0, Sig: take one tablet by mouth twice daily (unchanged) Cr: 0.99 mg/dL on 12/14/2018 HCT: 43.3 % on 09/10/2015 HGB: 15.1 g/dL on 07/02/2017 PLT: 256 k/cmm on 09/10/2015 WBC: 7.7 k/cmm on 09/10/2015 Powered by [employer], Reference: [id number], 10/27/2019 10:31:07 AM CDT, Pool: WYLIE RN ([id number]) documented in this encounter Plan of Treatment Not on filedocumented as of this encounter Visit Diagnoses Diagnosis Right knee pain, unspecified chronicity documented in this encounter Care Teams Imaging Administrator Relationship Specialty Start Date End Date Found, No Pcp, PCP - General 10/04/19 11/28/19 [address] [place] [address] documented as of this encounter
--- OUTSIDE RECORDS SUMMARY | 2022-01-16 08:00 | XMS_ITS | Encounter Summary ---
:1965 Author Organization [facility] Address [address], [place] [address] Care Team Providers Name Role Phone Briana Vazquez PA-C Primary Care Provider Reason for Referral (Routine) - Closed Specialty Diagnoses / Procedures Referred By Contact Refer red To Contact Diagnoses Trigger finger of right hand, unspecified finger Megan Turner, Procedures Triamcinolone Acet Inj Nos: (per 10 mg) [address] [place] [address] Referral ID Status Reason Start Date Expiration Date Visits Requ ested Visits Authorized [id number] Closed 01/10/2019 04/10/2020 1 1 TS MEDIA Reason for Visit Reason Comments Finger Pain Encounter Details Date Type Department Care Team Description 01/10/2019 Office Visit [facility] Megan Bhagat r finger of TAMPA MD Jeferson right hand, [address] [place] [address] unspecified finger [place], [place] [address] [place], [place] (Primary Dx) [phone] (Wo rk) Social History Tobacco Use Types Packs/Day Years Used Date Smoking Tobacco: Former Cigarettes 0.5 3 Cigars Smokeless Tobacco: Never Comments: Occasional cigar Alcohol Use Standard Drinks/Week Comments Yes 0 (1 standard drink = 0.6 oz pure alcoho l) Rare Sex Assigned at Date Recorded Not on file documented as of this encounter Patient Instructions Patient InstructionsPhiJessica martinez ATC - 01/10/2019 1:[address] Megan Turner MD Sports Medicine & Pediatric Sports Medicine Rpg Programmer Analyst: Renetta Valderrama Please contact Renetta for all administrative questions at [phone] Textile Conversion Manager: Jessica ATC Please contact Jessica for all medical questions at [phone] Medication Requests: Prescriptions are not filled on Weekends or on Weekdays after 3:00PM For all medication refills: Request a refill using Dojo or contact your Pharmacy The right finger was injected with Kenalog-40 and lidocaine. Avoid Strenuous Activity for the remainder of the day and avoid activities that cause pain for one to two weeks following the injection. Signs and Symptoms to watch for: If you have any redness, warmth or increasing pain at the site of the injection or develop a fever, please call [phone] TS MEDIA documented in this encounter Progress Notes Megan Turner MD - 01/10/2019 12:00 PM CST NAME: GRACIE GUERRA MR#: [id number] CSN: [id number] AUTHENTICATING CLINICIAN: Megan Turner MD CONFIRM #: [id number] LOC: 711 CLINIC PROGRESS NOTE DATE OF VISIT: 01/10/2019 : 1965 CHIEF COMPLAINT: Right 3rd and 4th trigger fingers. HPI: This 53-year-old male returns today to receive right 3rd and 4th trigger finger steroid injections. Our last visit was on 01/02/2019, for his right knee medial meniscal tear. He received a steroid injection on that date and has had some improvement in pain in his knee since then. He localizes pain andtriggering in his right 3rd and 4th fingers. He has pain with gripping and lifting. He has a historyof prior steroid injection here and would like to repeat this here today. REVIEW OF SYSTEMS: No other areas of joint pain. EXAM: GENERAL: Alert, no apparent distress. MUSCULOSKELETAL: Right hand: Mild tenderness to palpation at the A1 alex of the right 3rd and 4th fingers with palpable triggering with finger flexion and extension. Full range of motion. SKIN: No rash. NEURO: Distal neurovascular exam normal. PROCEDURE NOTE: After discussion of risks, benefits, and side effects, the patient consented to right 3rd and 4th trigger finger steroid injections. Under sterile technique, 0.5 mL of 1% lidocaine and 0.5 mL of Kenalog 40 mg/mL were injected at both the 3rd and 4th A1 pulleys. The procedure was well tolerated and without complication. The resident, Dr. Zofia Claudio, performed the procedures under my direct supervision. The procedures were well tolerated and without complication. ASSESSMENT: Right 3rd and 4th trigger fingers. PLAN: 1.Discussed diagnosis and treatment options. 2.Follow up p.r.n. HLB:MEDParas C: R:01/10/19 17:04 CONFIRM#:[id number] TS MEDIA documented in this encounter Plan of Treatment Not on filedocumented as of this encounter Visit Diagnoses Diagnosis Trigger finger of right hand, unspecifie d finger - Primary documented in this encounter Care Teams Student Education Specialist Relationship Specialty Start Date End Date Briana Vazquez PA-C PCP - General Physician Lawn Mower 06/30/17 10/03/19 [address] [place] [address] documented as of this encounter
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
--- OUTSIDE RECORDS SUMMARY | 2022-01-16 08:00 | XMS_ITS | Encounter Summary ---
:1965 Author [facility] Address [address] [place] [address] Care Team Providers Name Role Phone Briana Vazquez PA-C Primary Care Provider Reason for Visit Reason Comments LAB RESULTS Cholesterol, would like to i ncrease lipitor Labs Needed Would like testosterone test ing Encounter Details Date Type Department Care Team Description 07/11/2018 Office Visit [facility] Tez Vazquez PA-C [address] [place], [place] [id number] Erectile dysfunction, unspecified erecti le dysfunction type (Primary Dx); [place] [address] [place] [address] Hyperlipidemia with target LDL less than 130 [address] [place] [address] Social History Tobacco Use Types Packs/Day Years [...] Sign Reading Time Taken Comments Blood Pressure 96/60 07/11/2018 1:36 PM CDT Pulse 97 07/11/2018 1:36 PM CDT Temperature - - Respiratory Rate - - Oxygen Saturation - - Inhaled Oxygen Concentration - - Weight - - Height - - Body Mass Index - - documented in this encounter Progress Notes Camilo Bullock MD - 07/11/2018 1:40 PM CDT SUBJECTIVE: Patient comes in requesting increase in dosage of atorvastatin. Currently on atorvastatin 10 mg daily. Followed by a psychiatrist, Dr. Chaudhry, at [facility] who advised that he consider going up on dose. Psychiatrist recently ordered lab including lipid panel showing LDL of 109, HDL remains low at 32. Fasting blood sugar was 122, but hemoglobin A1c was 5.0. Patient is on Seroquel, Zyprexa, Wellbutrin, sertraline, trazodone Patient has 10 year ASCVD risk of 4.2 percent. Patient also wonders about prescription for testosterone injections which he apparently had a numberof years ago. Last testosterone level was low normal in 2012. He does have erectile dysfunction and decreased libido. Would like to consider Viagra which worked for him in the past at dose of about 50 mg OBJECTIVE: BP 96/60 Pulse 97 Exam not performed ASSESSMENT: Dyslipidemia with low HDL Erectile dysfunction Previous history of Hypotestosteronism PLAN: Advise patient that he does not necessarily need to go up on dose of atorvastatin but he is interested in doing that and we will increase dose to 20 mg daily. Agreed to trial of sildenafil 20 mg tabs, discussed side effects. Hold off on testosterone testing at this time it has benefit from treatment of erectile dysfunction. documented in this encounter Plan of Treatment Not on filedocumented as of this encounter Visit Diagnoses Diagnosis Erectile dysfunction, unspecified erecti le dysfunction type - Primary Hyperlipidemia with target LDL less than 130 (HRC) Other and unspecified hyperlipidemia documented in this encounter Care Teams Fingerer Relationship Specialty Start Date End Date Briana Vazquez PA-C PCP - General Physician Plant Maintenance Engineer 06/30/17 10/03/19 [address] [place] [address] documented as of this encounter
--- OUTSIDE RECORDS SUMMARY | 2022-01-16 08:00 | XMS_ITS | Encounter Summary ---
:1965 Author Organization [facility] Address [address], [place] [address] Care Team Providers Name Role Phone Found, No Pcp Primary Care Provider Unavailable Reason for Visit Reason Comments ERRONEOUS ENTRY Encounter Details Date Type Department Care Team Description 10/04/2019 Telephone [facility] Tez Vazquez PAAshleyC ERRONEOUS ENTRY Practice [address] [facility] [address] [place] [address] [place] [address] [phone] Social History Tobacco Use Types Packs/Day Years Used Date Smoking Tobacco: Former Cigarettes 0.5 3 Cigars Smokeless Tobacco: Never Comments: Occasional cigar Alcohol Use Standard Drinks/Week Comments Yes 0 (1 standard drink = 0.6 oz pure alcoho l) Rare Sex Assigned at Date Recorded Not on file documented as of this encounter Plan of Treatment Not on filedocumented as of this encounter Visit Diagnoses Not on filedocumented in this encounter Care Teams Ragman Relationship Specialty Start Date End Date Found, No Pcp, PCP - General 10/04/19 11/28/19 [address] [place] [address] documented as of this encounter
--- OUTSIDE RECORDS SUMMARY | 2022-01-16 08:00 | XMS_ITS | Encounter Summary ---
:1965 [facility] Address [address] [place] [address] Care Team Providers Name Role Phone Briana Cabrera PA-C Primary Care Provider Reason for Visit Reason Comments Refill gabapentin (NEURONTIN) 600 M G tablet [Pharmacy Med Name: Gabapentin Oral Tablet 600 MG]; tamsulosin ( FLOMAX) 0.4 MG CAPS capsule [Pharmacy Med Name: Tamsulosin HCl Oral Capsule 0.4 MG]; tolterodine (DETROL) 2 MG tablet [Pharmacy Med Name: Tolterod ine Tartrate Oral Tablet 2 MG] Encounter Details Date Type Department Care Team Description 12/11/2018 Refill [facility] Camilo Bullock MD Refill (gabapentin Practice [address] (NEURONTIN) 600 MG [address] [place], [place] tablet [Pharmacy Med [place], [place] [address] Name: Gabapentin Oral [phone] (Wo rk) Tablet 600 MG]; tamsulosi n (FLOMAX) 0.4 MG CAPS capsule [Pharmacy Med N trevor: Tamsulosin HCl Oral Capsule 0.4 MG] ; tolterodine (DE TROL) 2 MG [facility]: Tolterodi ne Tartrate Oral T ablet 2 MG]) Social History Tobacco Use Types Packs/Day Years Used Date Smoking Tobacco: Former Cigarettes 0.5 3 Cigars Smokeless Tobacco: Never Comments: Occasional cigar Alcohol Use Standard Drinks/Week Comments Yes 0 (1 standard drink = 0.6 oz pure alcoho l) Rare Sex Assigned at Date Recorded Not on file documented as of this encounter Nursing Notes Radha Kilgore RN - 12/12/2018 8:56 AM CDT Further Assistance Needed on Refill from Clinician RN reviewed. Medication not listed on standing order. Review pended order for accuracy and sign if appropriate Requested Prescriptions Pending Prescriptions Disp Refills ??? gabapentin (NEURONTIN) 600 MG tablet [Pharmacy Med Name: Gabapentin Oral Tablet 600 MG] 270 Tablet 2 Sig: TAKE ONE TABLET BY MOUTH THREE TIMES DAILY Signed Prescriptions Disp Refills ??? tamsulosin (FLOMAX) 0.4 MG CAPS capsule 90 Capsule 2 Sig: TAKE ONE CAPSULE BY MOUTH DAILY Authorizing Provider: BRIANA CABRERA Ordering User: RADHA KILGORE ??? tolterodine (DETROL) 2 MG tablet 180 Tablet 2 Sig: TAKE TWO TABLETS BY MOUTH DAILY Authorizing Provider: BRIANA CABRERA Ordering User: RADHA KILGORE Other medication(s) were refilled pso. Radha Kilgore RN 12/12/2018, 8:56 AM Interface, Out Surescripts Prov Query - 12/12/2018 8:26 AM CDT gabapentin (NEURONTIN) 600 MG tablet [Pharmacy Med Name: Gabapentin Oral Tablet 600 MG] Miscellaneous - 12 Month Visit -> Refill x 9 months, qty: 270, refills: 2 (until due for an office visit) Last qualifying visit: 07/11/2018 (in [facility]) Next scheduled visit: None Last ordered by CAMILO BULLOCK M: 05/09/2018 (217 days ago) QTY: 270, Refills: 1, Sig: take 1 tablet by mouth three times a day. (changed but equivalent) Powered by [employer], Reference: [id number], 12/12/2018 8:26:11 AM CDT, Pool: WYLIE RN ([id number]) tamsulosin (FLOMAX) 0.4 MG CAPS capsule [Pharmacy Med Name: Tamsulosin HCl Oral Capsule 0.4 MG] Miscellaneous - 12 Month Visit -> Refill x 9 months, qty: 90, refills: 2 (until due for an office visit) Last qualifying visit: 07/11/2018 (in [facility]) Next scheduled visit: None Last ordered by CAMILO BULLOCK M: 05/09/2018 (217 days ago) QTY: 90, Refills: 1, Sig: take 1 capsule by mouth daily. (changed but equivalent) Powered by [employer], Reference: [id number], 12/12/2018 8:26:11 AM NICOLE, Pool: WYLIE RN ([id number]) tolterodine (DETROL) 2 MG tablet [Pharmacy Med Name: Tolterodine Tartrate Oral Tablet 2 MG] Miscellaneous - 12 Month Visit -> Refill x 9 months, qty: 180, refills: 2 (until due for an office visit) Last qualifying visit: 07[facility]11/2018 ([facility]) Next scheduled visit: None Last ordered by CAMILO BULLOCK M: 05/09/2018 (217 days ago) QTY: 180, Refills: 1, Sig: take 2 tablets by mouth daily. (changed but equivalent) Powered by [employer], Reference: [id number], 12/12/2018 8:26:11 AM CDT, Pool: ROB REFILL RN ([id number]) documented in this encounter Plan of Treatment Not on filedocumented as of this encounter Visit Diagnoses Diagnosis Chronic low back pain Lumbago Essential hypertension (HRC) Unspecified essential hypertension Urinary urgency Urgency of urination documented in this encounter Care Teams Neuropsychiatrist Relationship Specialty Start Date End Date Briana Cabrera PA-C PCP - General Physician [id number]/[id number] Tank Driver 06/30/17 10/03/19 [address] [place] [address] documented as of this encounter
--- OUTSIDE RECORDS SUMMARY | 2022-01-16 08:00 | XMS_ITS | Encounter Summary ---
:1965 Author Organization [facility] Address [address] [address] Care Team Providers Name Role Phone Briana Vazquez PA-C Primary Care Provider Encounter Details Date Type Department Care Team Description 09/24/2018 Lab Visit [facility] Alcoholism ([facility]) (Primary [address] [facility] [place], [place] [address] Social History Tobacco Use Types Packs/Day Years [...] as of this encounter Visit Diagnoses Diagnosis Alcoholism (HRC) - Primary Other and unspecified alcohol dependence , unspecified drinking behavior documented in this encounter Care Teams Network Desktop Support Specialist Relationship Specialty Start Date End Date Briana Vazquez PA-C PCP - General Physician Life Insurance Specialist 06/30/17 10/03/19 [address] [place], [place] [id number] documented as of this encounter
--- OUTSIDE RECORDS SUMMARY | 2022-01-16 08:00 | XMS_ITS | Encounter Summary ---
:1965 Author Organization [facility] Address [address], [place] [address] Care Team Providers Name Role Phone Briana Vazquez PA-C Primary Care Provider Reason for Visit Reason Onset Date Comments Refill 01/09/2019 omeprazole (PRILOSEC ) 20 MG capsule Encounter Details Date Type Department Care Team Description 01/09/[address] [facility] Briana Vzaquez, Ref ill (omeprazole Practice ARLET (PRILOSEC) 20 MG [address] [facility] [address] capsule) [place], [place] [address] [place], [place] [phone] (Wo rk) Social History Tobacco Use Types Packs/Day Years Used Date Smoking Tobacco: Former Cigarettes 0.5 3 Cigars Smokeless Tobacco: Never Comments: Occasional cigar Alcohol Use Standard Drinks/Week Comments Yes 0 (1 standard drink = 0.6 oz pure alcoho l) Rare Sex Assigned at Date Recorded Not on file documented as of this encounter Nursing Notes Ashley Holly RN - 01/10/2019 4:11 PM CST per standing order Ashley Holly RN TER Interface, Out Surescripts Prov Query - 01/09/2019 5:22 PM CST omeprazole (PRILOSEC) 20 MG capsule Miscellaneous - 12 Month Visit -> Refill x 6 months, qty: 90, refills: 1 (until due for an office visit) Last qualifying visit: 07/11/2018 (in [facility]) Next scheduled visit: None Last ordered by DELICIA MARTINEZ M: 05/09/2018 (245 days ago) QTY: 90, Refills: 1, Sig: take 1 capsule by mouth daily. take 1 hour before a meal. (unchanged) Powered by [employer], Reference: [id number], 01/09/2019 5:22:56 PM SPOTTER, Pool: WYLIE RN ([id number]) TER documented in this encounter Plan of Treatment Not on filedocumented as of this encounter Visit Diagnoses Not on filedocumented in this encounter Care Teams Rehabilitation Psychologist Relationship Specialty Start Date End Date Briana Vazquez PA-C PCP - General Physician Survival Equipment Repairer 06/30/17 10/03/19 [address] [place] [address] documented as of this encounter
--- OUTSIDE RECORDS SUMMARY | 2022-01-16 08:00 | XMS_ITS | Encounter Summary ---
:1965 Author Organization [facility] Address [address] [place] [address] Care Team Providers Name Role Phone Briana Vazquez PA-C Primary Care Provider Reason for Visit Reason Comments Refill Encounter Details Date Type Department Care Team Description 01/17/2019 Refill [facility] Syeda Baker PA-C Refill [address] [address] [place] [address] [phone] (Wo rk) Social History Tobacco Use Types Packs/Day Years Used Date Smoking Tobacco: Former Cigarettes 0.5 3 Cigars Smokeless Tobacco: Never Comments: Occasional cigar Alcohol Use Standard Drinks/Week Comments Yes 0 (1 standard drink = 0.6 oz pure alcoho l) Rare Sex Assigned at Date Recorded Not on file documented as of this encounter Nursing Notes Marely Mello RN - 01/17/2019 4:34 PM CST Unable to refill this request through urgent care. EDGE MACHINE OPERATOR documented in this encounter Plan of Treatment Not on filedocumented as of this encounter Visit Diagnoses Diagnosis Right knee pain, unspecified chronicity documented in this encounter Care Teams Community Liaison Officer Relationship Specialty Start Date End Date Briana Vazquez PA-C PCP - General Physician Fuel Cell Builder 06/30/17 10/03/19 [address] [place] [address] documented as of this encounter
--- OUTSIDE RECORDS SUMMARY | 2022-01-16 08:00 | XMS_ITS | Encounter Summary ---
:1965 Author Organization [facility] Address [address], [place] [address] Care Team Providers Name Role Phone Briana Vazquez PA-C Primary Care Provider Reason for Referral (Routine) - Closed Specialty Diagnoses / Procedures Referred By Contact Refer red To Contact Diagnoses Tear of medial meniscus of right knee, current, unspecified tear type, subsequent encounter Megan Turner, Procedures Triamcinolone Acet Inj Nos: (per 10 mg) [address] [place] [address] [place], [place] [address] Referral ID Status Reason Start Date Expiration Date Visits Requ ested Visits Authorized [id number] Closed 01/02/2019 04/02/2020 1 1 Reason for Visit Reason Comments Knee Pain or Injury Encounter Details Date Type Department Care Team Description 01/02/2019 Office Visit Megan Gallegos Tear o f medial CENTER MD Jeferson meniscus of right [address] [place] [address] knee, current, [place], [place] [address] [place], [place] unspecified tear [phone] type, subsequent [phone] (Wo rk) encounter (Primary Dx) Social History Tobacco Use Types Packs/Day Years Used Date Smoking Tobacco: Former Cigarettes 0.5 3 Cigars Smokeless Tobacco: Never Comments: Occasional cigar Alcohol Use Standard Drinks/Week Comments Yes 0 (1 standard drink = 0.6 oz pure alcoho l) Rare Sex Assigned at Date Recorded Not on file documented as of this encounter Patient Instructions Patient InstructionsJessica Kenyon, ATC - 01/02/2019 3:[address] Megan Turner MD Sports Medicine & Pediatric Sports Medicine Ceramic Designer: Renetta Valderrama Please contact Renetta for all administrative questions at [phone] Fishing Rod Assembler: Jessica ATC Please contact Jessica for all medical questions at [phone] Medication Requests: Prescriptions are not filled on Weekends or on Weekdays after 3:00PM For all medication refills: Request a refill using [employer] or contact your Pharmacy The right knee was injected with Kenalog-40 and lidocaine. Avoid Strenuous Activity for the remainder of the day and avoid activities that cause pain for one to two weeks following the injection. Signs and Symptoms to watch for: If you have any redness, warmth or increasing pain at the site of the injection or develop a fever, please call [phone] You've just had a steroid (cortisone) injection: Steroid injections are among the most frequently used treatments in orthopedics. Steroid injections are used for a wide range of conditions from arthritis, to bursitis, to tennis elbow, etc. The two most common side-effects of steroid shots called ???steroid flare??? and ???steroid flush. Steroid flare can cause an increase in symptoms in the first 24-48 hours after a steroid injection. This will usually subside within a few days, and is a cause from the additional fluid in your joint, and the trauma to the joint lining from the injection. This pain usually subsides quickly and can be aided with an ice pack and over the counter anti-inflammatory medication. Steroid flush is a flushing sensation and redness of their face. This reaction is more common in women, but can occur in men as well, and is seen into up to 15 percent of patients. This can begin within a few hours of the injection and may last for a few days. It is not dangerous, and will resolve itself. Diabetic patients also can have their blood sugar levels affected. Patients with diabetes should carefully monitor their blood sugar as steroid can cause a temporary rise in their levels. Patients taking insulin should be especially careful, checking their blood sugar often and adjusting the insulin doses, if necessary. Steroid injections can only be repeated every 3 or 4 months. For some conditions there may also be alimited total number of times it is safe to repeat an injection. RISKS: Infection ?? Whenever there is a break in the skin, like when a needle is used to administer steroid, there cameron chance of infection this is very unlikely to happen, usually would occur days after the injection.Signs and symptoms to watch for: fever, streaking redness, pus, drainage, foul odor, localized redness that continues to get worse, come to the office if symptoms are recognized during business hours, or proceed to the emergency room if symptoms are recognized after office hours. Skin Pigment Changes ?? Patients should also be aware that steroid may cause skin around the injection site to lighten. This is not harmful or long lasting. Loss of Fatty Tissue ?? This is one reason we limit the number of steroid injections administered. High doses of steroid can have detrimental effects on some tissues in the body, though due to the dosage we use the risk isextremely rare. When injected into fatty tissue, steroid can lead to a problem called fat atrophy. Fat atrophy causes loss of fatty tissue, which can lead to dimpling of the skin or the thinning out offat. Skin will feel thin. Patients who get steroid injections in the heel to treat plantar fasciitismay find walking painful as fat that usually cushions their steps may thin out. Tendon Rupture ?? Steroid can also cause weakening of tendons. This is one reason to limit the number of steroid injections administered. documented in this encounter Progress Notes Megan Turner MD - 01/02/2019 3:40 PM CDT CC: MRI results IMAGING: MRI right knee: 1. There is a flap tear of the posterior horn and body of the medial meniscus with a peripherally displaced meniscal fragment inferior to the posterior body on coronal images 20 through 22. ?? 2. Mild marrow edema signal in the medial aspect of the medial tibial plateau which is likely reactive secondary to the adjacent meniscal tear. No subchondral fracture. ?? 3. Minimal tricompartmental chondromalacia. No full-thickness chondral defects. ?? 4. Mild apical fraying of the lateral meniscal body. Degenerative signal within the anterior horn ofthe lateral meniscus which comes close to and may contact the femoral surface on a single image (sagittal image 9) which is equivocal for a subtle nondisplaced tear at this site. Right Knee Steroid Injection: After a discussion of risks, benefits and side effects, the patient consented to a right knee steroid injection. Under sterile technique, 4 mL of 1% lidocaine and 1 mL of Kenalog 40 mg/mL were injectedinto the right knee via the anterolateral approach. The procedure was performed by Resident Dr. Zofia Claudio under my direct supervision and was well-tolerated and without complication. ASSESSMENT: 1. Right MMT PLAN: 1. Reviewed MRI results and diagnosis with patient today. Discussed all treatment options including surgical consultation, but he would like to avoid surgery so decided to proceed with steroid injection. 2. Follow up prn. Megan Turner MD TT: [address] 10 min documented in this encounter Plan of Treatment Not on filedocumented as of this encounter Visit Diagnoses Diagnosis Tear of medial meniscus of right knee, c urrent, unspecified tear type, subsequent encounter - Primary documented in this encounter Care Teams Mine Boss Relationship Specialty Start Date End Date Briana Vazquez PA-C PCP - General Physician Director Revenue 06/30/17 10/03/19 [address] [place] [address] documented as of this encounter
--- OUTSIDE RECORDS SUMMARY | 2022-01-16 08:00 | XMS_ITS | Encounter Summary ---
:1965 Author Organization [facility] Address [address], [place] [address] Care Team Providers Name Role Phone Briana Vazquez PA-C Primary Care Provider Reason for Visit Procedure/Equipment (Routine) - Incomplete Specialty Diagnoses / Procedures Referred By Contact Refer red To Contact Diagnoses Right knee pain, unspecified chronicity Megan Turner [place], Procedures MR Knee Rt WO IV Cont MD [address] [facility] [place], [place] [address] Referral ID Status Reason Start Date Expiration Date Visits V isits Requested Authorized [id number] Incomplete 12/27/2018 03/27/2020 1 1 Encounter Details Date Type Department Care Team Description 01/02/2019 Ancillary [facility] MRI Megan Turner Right knee pain, Procedure [address] [facility] [place] [address] [phone] Social History Tobacco Use Types Packs/Day Years Used Date Smoking Tobacco: Former Cigarettes 0.5 3 Cigars Smokeless Tobacco: Never Comments: Occasional cigar Alcohol Use Standard Drinks/Week Comments Yes 0 (1 standard drink = 0.6 oz pure alcoho l) Rare Sex Assigned at Date Recorded Not on file documented as of this encounter Plan of Treatment Not on filedocumented as of this encounter Procedures Procedure Name Priority Date/Time Associated Diagnosis Comme nts MR KNEE RT WO IV Routine 01/02/2019 2:59 PM Right knee pain, R esults for this CONT CDT unspecified procedure are i n chronicity the results section. documented in this encounter Results MR Knee Rt WO [...] this site. Megan Turner MD RAD MRI documented in this encounter Visit Diagnoses Diagnosis Right knee pain, unspecified chronicity documented in this encounter Care Teams Child Specialist Relationship Specialty Start Date End Date Briana Vazquez PA-C PCP - General Physician Base Ply Hand 06/30/17 10/03/19 [address] [place] [address] documented as of this encounter
--- OUTSIDE RECORDS SUMMARY | 2022-01-16 08:00 | XMS_ITS | Encounter Summary ---
:1965 Author Organization [facility] Address [address], [place] [address] Care Team Providers Name Role Phone Briana Vazquez PA-C Primary Care Provider Reason for Visit Procedure/Equipment (Routine) - Incomplete Specialty Diagnoses / Procedures Referred By Contact Refer red To Contact Diagnoses Right knee pain, unspecified chronicity Megan Turner, Procedures XR Knee Lt 1-2 Views Comparison [address] [facility] [place], [place] [address] Referral ID Status Reason Start Date Expiration Date Visits V isits Requested Authorized [id number] Incomplete 12/27/2018 03/27/2020 1 1 Encounter Details Date Type Department Care Team Description 12/27/2018 [facility]illary [facility] Megan Turner Right knee pain, Procedure [address] [facility] [place] [address] [phone] Social History Tobacco Use Types Packs/Day Years [...] Name Priority Date/Time Associated Diagnosis Comme nts XR KNEE LT 1-2 VIEWS Routine 12/27/2018 2:08 PM Right knee zhen n, Results for this COMPARISON CDT unspecified procedure are i n chronicity the results section. XR KNEE RT 3 VIEWS Routine 12/27/2018 2:08 PM Right knee pain, Results for this CDT unspecified procedure are i n chronicity the results section. documented in this encounter Results XR Knee Lt 1-2 Views Comparison (12/27/2018 [...] soft tissues. Megan Turner MD RAD GD XR Knee Rt 3 Views (12/27/2018 [...] chronicity documented in this encounter Care Teams Cvicu Nurse Relationship Specialty Start Date End Date Briana Vazquez PA-C PCP - General Physician Bed Worker 06/30/17 10/03/19 [address] [place] [address] documented as of this encounter
--- OUTSIDE RECORDS SUMMARY | 2022-01-16 08:00 | XMS_ITS | Encounter Summary ---
:1965 Author Organization [facility] Address [address], [place] [address] Care Team Providers Name Role Phone Briana Vazquez PA-C Primary Care Provider Encounter Details Date Type Department Care Team Description 12/14/2018 Lab Visit [facility] Encounter for long-term [address] [facility] (current) use of [place], [place] [address] medications [phone] Social History Tobacco Use Types Packs/Day Years [...] Name Priority Date/Time Associated Diagnosis Comme nts CREATININE / GFR Routine 12/14/2018 1:46 PM Encounter for Resu lts for this CDT long-term (current) procedur e are in use of medications [email or web address] ts section. POTASSIUM Routine 12/14/2018 1:46 PM Encounter for Results for this CDT long-term (current) procedur e are in use of medications [email or web address] ts section. documented in this encounter Results Potassium (12/14/2018 1:46 PM CDT) P athologist Signature Potassium 4.0 3.5 - 5.1 12/14/2018 [facility] mmol/L 6:47 PM CDT C[facility]AL LAB Specimen Anatomical Collection Method / Collection Time Recei lavonne Time (Source) Location / Volume Laterality Blood Venipuncture / 12/14/2018 1:46 12/14/2018 1:46 Unknown PM CDT PM CDT Briana Vazquez PA-C LAB_1 Performing Organization Address [facility] Phon e Number [facility] [facility] [address] [place] [address] Creatinine / GFR (12/14/2018 1:46 PM CDT) [facility] Method Time Signature Creatinine 0.99 0.73 - 12/14/2018 [facility] 1.18 6:47 PM CDT CENTRAL LAB mg/dL GFR, Estimated >60 >60 12/14/2018 [facility] [facility] mL/min/1. 6:47 PM CDT CENTRAL LAB 73m2 GFR, Est If >60 >60 12/14/2018 [facility] mL/min/1. 6:47 PM CDT CENTRAL LAB [place] 73m2 Specimen Anatomical Collection Method / Collection Time Recei lavonne Time (Source) Location / Volume Laterality Blood Venipuncture / 12/14/2018 1:46 12/14/2018 1:46 Unknown PM CDT PM CDT Briana Vazquez PA-C LAB_1 Performing Organization Address [facility] Phon e Number [employer] [facility] [facility]UN[facility] CENTRAL LAB [address] [place] [address] documented in this encounter Visit Diagnoses Diagnosis Encounter for long-term (current) use of medications Encounter for long-term (current) use of other medications documented in this encounter Care Teams Industrial Engineering Professor Relationship Specialty Start Date End Date Briana Vazquez PA-C PCP - General Physician Thermal Engineer 06/30/17 10/03/19 [address] [place] [address] documented as of this encounter
--- OUTSIDE RECORDS SUMMARY | 2022-01-16 08:00 | XMS_ITS | Encounter Summary ---
:1965 Author Organization [facility] Address [address], [place] [address] Care Team Providers Name Role Phone Briana Cabrera PA-C Primary Care Provider Reason for Visit Reason Comments Refill diclofenac (VOLTAREN) 75 MG enteric coated tablet [Pharmacy Med Name: Diclofenac Sodium Oral Table t Delayed Release 75 MG] Encounter Details Date Type Department Care Team Description 08/03/2019 Refill [facility] Briana Cabrera, Ref ill (diclofenac Practice ARLET (VOLTAREN) 75 MG enteric [address] [place] [address] coated tablet [Pharmacy [place], [place] [address] [place], [place] Med Name: Diclofenac [phone] Sodium Oral Tablet [phone] (Wo rk) Delayed Release 75 MG]) Social [...] Notes Interface, Out Surescripts Prov Query - 08/03/2019 10:50 AM CDT diclofenac (VOLTAREN) 75 MG enteric coated tablet [Pharmacy Med Name: Diclofenac Sodium Oral Tablet Delayed Release 75 MG] NSAIDs -> The medication is active at more than one strength (75 mg on 02/15/2019, 50 mg on 05/09/2018). -> Labs required if chronic use -> A qualifying visit was not found within the last 2 years. -> HCT, PLT, and WBC are overdue (performed over 47 months ago, required every 12 months) -> HGB is overdue (performed over 25 months ago, required every 12 months) Last qualifying visit: None (A recent visit (in Family Practice with DELICIA MARTINEZ) was found) Next scheduled visit: None Last ordered by BRIANA CABRERA: 02/15/2019 (169 days ago) QTY: 180, Refills: 1, Sig: take 1 tabletby mouth two times a day. (changed but equivalent) Cr: 0.99 mg/dL on 12/14/2018 HCT: 43.3 % on 09/10/2015 HGB: 15.1 g/dL on 07/02/2017 PLT: 256 k/cmm on 09/10/2015 WBC: 7.7 k/cmm on 09/10/2015 Powered by [employer], Reference: [id number], 08/03/2019 10:50:57 AM CDT, Pool: WYLIE RN ([id number]) documented in this encounter Plan of Treatment Not on filedocumented as of this encounter Visit Diagnoses Diagnosis Right knee pain, unspecified chronicity documented in this encounter Care Teams Floor Installer Relationship Specialty Start Date End Date Briana Cabrera PAAshleyC PCP - General Physician Filling Station Attendant 06/30/17 10/03/19 [address] [place] [address] documented as of this encounter
--- OUTSIDE RECORDS SUMMARY | 2022-01-16 08:00 | XMS_ITS | Encounter Summary ---
:1965 Author Organization [facility] Address [address], [place] [address] Care Team Providers Name Role Phone Briana Vazquez PA-C Primary Care Provider Reason for Visit Reason Onset Date Comments Refill 02/14/2019 diclofenac (VOLTAREN ) 75 MG enteric coated tablet Encounter Details Date Type Department Care Team Description 02/14/2019 Refill [facility] Briana Vazquez, Ref ill (diclofenac Practice ARLET (VOLTAREN) 75 MG enteric [address] [place] [address] coated tablet) [place], [place] [address] [place], [place] [phone] (Wo rk) Social History Tobacco Use Types Packs/Day Years Used Date Smoking Tobacco: Former Cigarettes 0.5 3 Cigars Smokeless Tobacco: Never Comments: Occasional cigar Alcohol Use Standard Drinks/Week Comments Yes 0 (1 standard drink = 0.6 oz pure alcoho l) Rare Sex Assigned at Date Recorded Not on file documented as of this encounter Nursing Notes Ninfa Matos, RN, BSN - 02/15/2019 4:00 PM CST Tom verifies he is taking BID. Dose increase was only short term. Labs up to date except for CBC which is now ordered. 1 refill sent [facility] LATION BOARD BACK TENDER Jessica Baez RN - 02/15/2019 2:11 PM CST Further Assistance Needed on Refill from Nursing/Triage Please clarify how patient is taking medication. dose increased at [facility] visit. Does he need eval? Next steps: Nursing/Triage to complete refill as appropriate. Requested Prescriptions Pending Prescriptions Disp Refills ??? diclofenac (VOLTAREN) 75 MG enteric coated tablet 180 Tablet 0 Sig: Take 1 Tablet by mouth two times a day. Jessica Baez RN 02/15/2019, 2:11 PM LATION BOARD BACK TENDER Interface, Out Surescripts Prov Query - 02/14/2019 1:14 PM CST diclofenac (VOLTAREN) 75 MG enteric coated tablet NSAIDs -> The medication is active at more than one strength (75 mg on 12/14/2018, 50 mg on 05/09/2018). -> Labs required if chronic use -> HCT, PLT, and WBC are overdue (performed 42 months ago, required every 12 months) -> HGB is overdue (performed 20 months ago, required every 12 months) Last qualifying visit: 07/11/2018 (in [facility]) Next scheduled visit: None Last ordered by LAURO MALLORY L: 12/14/2018 (62 days ago) QTY: 60, Refills: 0, Sig: take 1 tablet bymouth two times a day. (unchanged) Cr: 0.99 mg/dL on 12/14/2018 HGB: 15.1 g/dL on 07/02/2017 HCT: 43.3 % on 09/10/2015 PLT: 256 k/cmm on 09/10/2015 WBC: 7.7 k/cmm on 09/10/2015 Powered by [employer], Reference: [id number], 02/14/2019 1:14:39 PM INSULATION BOARD BACK TENDER, Pool: AV REFILL LAVERN ([id number]) LATION BOARD BACK TENDER documented in this encounter Plan of Treatment Not on filedocumented as of this encounter Visit Diagnoses Diagnosis Encounter for medication monitoring - Pr imary Encounter for therapeutic drug monitorin g Right knee pain, unspecified chronicity documented in this encounter Care Teams Electric Screw Driver Operator Relationship Specialty Start Date End Date Briana Vazquez PA-C PCP - General Physician Budget Technician 06/30/17 10/03/19 [address] [place] [address] documented as of this encounter
--- OUTSIDE RECORDS SUMMARY | 2022-01-16 08:00 | XMS_ITS | Encounter Summary ---
:1965 Author Organization [email or web address] Address [address] [address] Care Team Providers Name Role Phone Found, No Pcp MD Primary Care Provider Unavailable Reason for Visit Reason Comments Refill omeprazole (PRILOSEC) 20 MG capsule [Pharmacy Med Name: Omeprazole Oral Capsule Delayed Release 20 M G]; tamsulosin (FLOMAX) 0.4 MG CAPS capsule [Pharmacy Med Name: Tamsulos in HCl Oral Capsule 0.4 MG] Encounter Details Date Type Department Care Team Description 09/28/2019 Refill [place] George, Briana M, Ref ill (omeprazole Practice PA-C (PRILOSEC) 20 MG capsule [id number] [facility] [address] [facility] [Pharmacy Med Name: [place], [place] [address] [place], [place] Omeprazole Oral Capsule [phone] Delayed Release 20 MG]; [phone] (Wo rk) tamsulosin (FLOMAX) 0.4 MG CAPS c apsule [Pharmacy Med N trevor: Tamsulosin HCl Oral Capsule 0.4 MG] ) Social History Tobacco Use Types Packs/Day Years Used Date Smoking Tobacco: Former Cigarettes 0.5 3 Cigars Smokeless Tobacco: Never Comments: Occasional cigar Alcohol Use Standard Drinks/Week Comments Yes 0 (1 standard drink = 0.6 oz pure alcoho l) Rare Sex Assigned at Date Recorded Not on file documented as of this encounter Nursing Notes Ashleigh Calix - 10/04/2019 2:40 PM CDT Medication Refill - Overdue Visit Called patient, was: Successful in reaching patient Patient is due for: Office Visit [Cut Filer: We recently received a refill request for one of your medications. In order to ensure your medication is safe and effective, your clinician needs to see you at least yearly for an office visit. May I help you schedule that office visit?] Patient declined to schedule due to: patient has established care with new provider in [place], he no longer will be coming to [facility] [Cut Filer: I will let your clinician know so they can further evaluate your request.] Ashleigh Calix Please route to: () Care Team Pool/ (PN) Clinician Jhoana Hoang - 10/04/2019 1:41 PM CDT Medication Refill - Overdue Visit Called patient, was: Unable to reach patient 2nd call attempted. Clinician will need to review refill request. Letter Sent. Jhoana Hoang Please route to: () Care Team Hector/ (PN) Clinician Jhoana Hoang - 09/29/2019 11:48 AM CDT Medication Refill - Overdue Visit Called patient, was: Unable to reach patient 1st call attempted. Left message to call back. Jhoana Hoang Siomara Ivy RN - 09/29/2019 10:03 AM CDT Further Assistance Needed on Refill from Precision Aircraft Structure Assembler Patient is overdue for Office visit. Due now for [facility] visit with George. Please call patient to schedule a Video Visit and document using .LISABRENDA. After attempting to schedule patient: Please route to: Clinician/Care Team Pool Requested Prescriptions Pending Prescriptions Disp Refills ??? omeprazole (PRILOSEC) 20 MG capsule [Pharmacy Med Name: Omeprazole Oral Capsule Delayed Release 20 MG] 90 Capsule 0 Sig: TAKE ONE CAPSULE BY MOUTH DAILY ONE HOUR BEFORE A MEAL ??? tamsulosin (FLOMAX) 0.4 MG CAPS capsule [Pharmacy Med Name: Tamsulosin HCl Oral Capsule 0.4 MG] 90 Capsule 0 Sig: TAKE ONE CAPSULE BY MOUTH DAILY Siomara Ivy RN 09/29/2019, 10:04 AM Interface, Out Surescripts Prov Query - 09/28/2019 1:44 PM CDT omeprazole (PRILOSEC) 20 MG capsule [Pharmacy Med Name: Omeprazole Oral Capsule Delayed Release 20 MG] Miscellaneous - 12 Month Visit -> A qualifying visit was not found within the last 2 years. Last qualifying visit: None (A recent visit (in Family Practice with DELICIA MARTINEZ) was found) Next scheduled visit: None Last ordered by BRIANA CABRERA M: 06/30/2019 (90 days ago) QTY: 90, Refills: 0, Sig: take one capsule by mouth daily one hour before a meal (unchanged) Powered by [employer], Reference: [id number], 09/28/2019 1:44:47 PM CDT, Pool: [facility] REFFAM RN ([id number]) tamsulosin (FLOMAX) 0.4 MG CAPS capsule [Pharmacy Med Name: Tamsulosin HCl Oral Capsule 0.4 MG] Miscellaneous - 12 Month Visit -> A qualifying visit was not found within the last 2 years. Last qualifying visit: None (A recent visit (in Family Practice with DELICIA MARTINEZ) was found) Next scheduled visit: None Last ordered by BRIANA CABRERA M: 12/12/2018 (290 days ago) QTY: 90, Refills: 2, Sig: take one capsule by mouth daily (unchanged) Powered by [employer], Reference: [id number], 09/28/2019 1:44:47 PM CDT, Pool: WYLIE RN ([id number]) documented in this encounter Plan of Treatment Not on filedocumented as of this encounter Visit Diagnoses Diagnosis Urinary urgency Urgency of urination documented in this encounter Care Teams Teacher Aide Relationship Specialty Start Date End Date Found, No Pcp, PCP - General 10/04/19 11/28/19 [address] [place] [address] documented as of this encounter
--- OUTSIDE RECORDS SUMMARY | 2022-01-16 08:00 | XMS_ITS | Encounter Summary ---
:1965 Author Organization [facility] Address [address] [place] [address] Care Team Providers Name Role Phone Briana Vazquez PA-C Primary Care Provider Reason for Referral Consult/Transfer Care (Routine) - Closed Specialty Diagnoses / Procedures Referred By Contact Refer red To Contact Diagnoses Right knee pain, unspecified chronicity Syeda Baker PA-C [address] [place], [place] [address] Referral ID Status Reason Start Date Expiration Date Visits Requ ested Visits Authorized [id number] Closed 12/14/2018 03/14/2020 1 1 Scheduling Instructions Your provider has recommended an appoint ment with [facility] [place]. You may call [phone] to schedule your appoi ntment. If you do not schedule an appointment within the next 1 to 3 business days, we will call you to help arrange your appointment. We suggest you call your [employer] about your coverage and benefits for this appointment. Reason for Visit Reason Comments KNEE PAIN Encounter Details Date Type Department Care Team Description 12/14/2018 Office Visit [facility] Syeda Yost Rig ht knee pain, Kaleb NICE unspecified chronicity [id number] [facility] [address] (Primary Dx) [place], [place] [address] [place], [place] [phone] Social History Tobacco Use Types Packs/Day Years [...] ??F) 12/14/2018 2:24 PM CDT Respiratory Rate - - Oxygen Saturation 97% 12/14/2018 2:24 PM CDT Inhaled Oxygen Concentration - - Weight 105.7 kg (233 lb) 12/14/2018 2:24 PM CDT Height - - Body Mass Index 30.74 05/27/2017 1:39 PM CDT documented in this encounter Patient Instructions Patient InstructionsMaSyeda ricci PA-C - 12/14/2018 2:30 PM CDT You can also take 2 tablets of 500mg Tylenol/Acetaminophen (1000mg total) every 6 hours WITH the diclofenac for pain. Be careful to check any other medications you may be taking for pain or cold symptoms to be sure there is not added acetaminophen to those as this may cause an unintentional overdose. documented in this encounter Progress Notes Syeda Baker PA-C - 12/14/2018 2:30 PM CDT Historical: Chief Complaint Patient presents with ??? KNEE PAIN Right Knee Pain , Initial visit: Is this due to an injury: No Since onset of pain, how has your condition been: worsened How long have you had this pain?: 10 day(s) How frequent is your pain: constant How severe is your pain (1-10): 5 What does your pain feel like: aching Does your pain extend to any other part of your body: No Does this limit work or activities: YES Does your pain keep you awake at night: No What have you tried for pain: Icy hot spray Are you experiencing any of the following symptoms? No Does your knee(s) ever catch, lock or give out on you? No Have you ever had a history of knee surgery? No Have you ever had knee pain before this current episode of pain? No I have personally reviewed the patient's allergies, medications and past medical history Patient reports he started having pain in his right knee about 10 days ago. He knows the pain is worsened about 4:00 a.m. in the morning, awakened from his sleep. Pain worsens with movement throughout the day and that is better when he rests in the evening. Cycle starts again the next morning. Patienthas had multiple back surgeries, shoulder surgeries, but has never had problems with this knee before. 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 Pain is worse when his they is straight. Denies any precipitating trauma to his knee, but he notes that he sleeps on his side and when he wakes up and his left knee is pushing into the right knee it is the area of contact that is currently where the pain is. Patient is on 50 mg b.i.d. oral Voltaren for his other joint pains, any states he will take 2 more Aleve every 12 hours on top of this. He finds the Tylenol is not effective against its pain at all. Observed: BP 115/58 (BP Location: Right Arm, BP Cuff Size: Regular) Pulse 63 Temp 97.7 ??F (36.5 ??C) (Tympanic) Wt 233 lb (105.7 kg) SpO2 97% BMI 30.74 kg/m?? Physical Exam: Physical Exam Constitutional: He is oriented to person, place, and time. He appears well- developed and well-nourished. No distress. HENT: Head: Normocephalic and atraumatic. Cardiovascular: Normal rate. Pulmonary/Chest: Effort normal. Musculoskeletal: Right knee: He exhibits normal range of motion (Distal functions of the right leg including sensation, motor function, and circulation are intact), no swelling, no effusion, no ecchymosis, no deformity, no laceration, no erythema, normal alignment, no LCL laxity, normal patellar mobility, no bony tenderness, normal meniscus and no MCL laxity. Tenderness (Pain is difficult to elicit with palpation, appears to be deep within the joint.) found. Medial joint line tenderness noted. No lateral joint line, no MCL, no LCL and no patellar tendon tenderness noted. Neurological: He is alert and oriented to person, place, and time. Skin: Skin is warm. He is not diaphoretic. Psychiatric: He has a normal mood and affect. His behavior is normal. Thought content normal. Nursing note and vitals reviewed. Assessment/Plan: 1. Right knee pain, unspecified chronicity - diclofenac (VOLTAREN) 75 MG enteric coated tablet; Take 1 Tablet by mouth two times a day. Dispense: 60 Tablet; Refill: 0 - Neoprene Knee Sleeve (K6310V) - Orthopaedic Consult Adult/Peds - lidocaine (LIDODERM) 5 % patch; Apply 1 Patch to skin . for 1 dose. Leave patch on for 12 hours then remove. Max 1 patch within 24 hours period. Dispense: 1 Patch; Refill: 0 Discussed with the patient that he needs to stop taking the Aleve on top of the diclofenac as they are the same class of medication and this could cup problems with his kidneys and/or his stomach. Willincrease his Voltaren dose to 75 mg, he can't take any Aleve or ibuprofen with this, and I do advisetaking Tylenol but take it scheduled every 6 hours which can make it more effective. Patient should also avoid wearing the knee a software engineer mobile clean with continuously. He should wear it while he is at work or using his knee a lot, but while he is at home and especially was sleeping he should not wear it. Patient needs to follow up with Orthopedics for further evaluation. X-ray not performed today given no acute trauma, pinpoint pain, or other joint findings consistent with bony deformity. Symptoms are more consistent with soft tissue damage/possible meniscus tear. Please see orders and patient instructions Syeda Baker PA-C This note was created using [id number] software. Some errors may exist that were unintended. Everyeffort is made to correct these errors before completion. documented in this encounter Nursing Notes Federica Baer LPN - 12/14/2018 2:30 PM CDT Right knee fit with a XL neoprene sleeve per Syeda Baker DME signed Federica Baer LPN 12/14/2018, 3:08 PM documented in this encounter Plan of Treatment Scheduled Referrals Name Type Priority Associated Diagnoses Order S chedule Orthopaedic Consult Referral Routine Right knee pain, Orde red: 12/14/2018 Adult/Peds unspecified chronicity documented as of this encounter Visit Diagnoses Diagnosis Right knee pain, unspecified chronicity - Primary documented in this encounter Care Teams Cnmt Relationship Specialty Start Date End Date Briana Vazquez PA-C PCP - General Physician Cooking Appliance Repair Technician 06/30/17 10/03/19 [address] [place] [address] documented as of this encounter
--- OUTSIDE RECORDS SUMMARY | 2022-01-16 08:00 | XMS_ITS | Encounter Summary ---
:1965 Author Organization [facility] Address [address] [address] Care Team Providers Name Role Phone Briana Vazquez PA-C Primary Care Provider Encounter Details Date Type Department Care Team Description 09/29/2018 Lab Visit [facility] Bipolar affective disorder, [address] [facility] [place] remission status [place], [place] [address] unspecified ([facility]) [phone] Social History Tobacco Use Types Packs/Day Years [...] Name Priority Date/Time Associated Diagnosis Comme nts LIVER PANEL(HEPATIC Routine 09/29/2018 1:12 PM Bipolar affecti ve Results for this FUNCTION PANEL) CDT disorder, remission proce dure are in status unspecified [facility] ts (C) section. GT (GAMMA GT) Routine 09/29/2018 1:12 PM Bipolar affective Res ults for this CDT disorder, remission procedur e are in status unspecified [facility] ts ([facility]) section. documented in this encounter Results GT (Gamma GT) (09/29/2018 1:12 PM CDT) [facility] gist Method Time Signature GT (Gamma Gt) 43 12 - 64 09/29/2018 Infinit U/L 10:00 PM CDT [facility] Specimen Anatomical Collection Method / Collection Time Recei lavonne Time (Source) Location / Volume Laterality Blood Venipuncture / 09/29/2018 1:12 09/29/2018 1:12 Unknown PM CDT PM CDT Coretta Hawkins APRN, CNP LAB_1 Performing Organization Address [facility] Phon e Number [facility] [address] [address] Liver Panel(Hepatic Function Panel) (09/29/2018 1:12 PM CDT) [facility] Method Time Signature Alkaline 102 40 - 150 09/29/2018 [facility] Phosphatase U/L 7:21 PM CDT C[facility]AL LAB Bilirubin, 0.2 0.2 - 1.2 09/29/2018 [facility] Total mg/dL 7:21 PM CDT [facility] Bilirubin, 0.1 0.0 - 0.5 09/29/2018 [facility] Direct mg/dL 7:21 PM CDT [facility] AST (SGOT) 16 10 - 40 09/29/2018 [facility] U/L 7:21 PM CDT [facility] ALT (SGPT) 20 0 - 55 09/29/2018 [facility] U/L 7:21 PM CDT [facility] Protein, Total 7.4 6.4 - 8.3 09/29/2018 [facility] g/dL 7:21 PM CDT [facility] Albumin 4.0 3.5 - 5.0 09/29/2018 [facility] g/dL 7:21 PM CDT CEN[facility]AL [facility] Specimen Anatomical Collection Method / Collection Time Recei lavonne Time (Source) Location / Volume Laterality Blood Venipuncture / 09/29/2018 1:12 09/29/2018 1:12 Unknown PM CDT PM CDT Coretta Hawkins APRN, CNP LAB_1 Performing Organization Address [facility] Phon e Number [facility] [address] [address] documented in this encounter Visit Diagnoses Diagnosis Bipolar affective disorder, remission st [facility] unspecified ([facility]) documented in this encounter Care Teams Brass Chaser Relationship Specialty Start Date End Date Briana Vazquez PA-C PCP - General Physician Motor Vehicle Emissions Inspector 06/30/17 10/03/19 [address] [place] [address] documented as of this encounter
--- OUTSIDE RECORDS SUMMARY | 2022-01-16 08:00 | XMS_ITS | Encounter Summary ---
:1965 [facility] Address [address] [place] [address] Care Team Providers Name Role Phone Briana Vazquez PA-C Primary Care Provider Encounter Details Date Type Department Care Team Description 12/14/2018 Correspondence None No Primary/Referring, DME EQUIPMENT PROOF OF Phy DELIVERY Social History Tobacco Use Types Packs/Day Years [...] on filedocumented in this encounter Care Teams Mold Bunch Trimmer Relationship Specialty Start Date End Date Briana Vazquez PA-C PCP - General Physician Decaler 11/29/19 [address] [place] [address] documented as of this encounter
--- OUTSIDE RECORDS SUMMARY | 2022-01-16 08:00 | XMS_ITS | Encounter Summary ---
:1965 Author [facility] Address [address], [place] [address] Care Team Providers Name Role Phone Briana Cabrera PA-C Primary Care Provider Reason for Visit Reason Comments Refill tolterodine (DETROL) 2 MG ta blet [Pharmacy Med Name: Tolterodine Tartrate Oral Tablet 2 MG] Encounter Details Date Type Department Care Team Description 08/28/[address] [facility] Briana Cabrera, Ref ill (tolterodine Practice ARLET (DETROL) 2 MG tablet [address] [facility] [address] [Pharmacy Med Name: [place], [place] [address] [place], [place] Tolterodine Tartrate [phone] Oral Tablet 2 MG]) [phone] (Wo rk) Social History Tobacco Use Types Packs/Day Years Used Date Smoking Tobacco: Former Cigarettes 0.5 3 Cigars Smokeless Tobacco: Never Comments: Occasional cigar Alcohol Use Standard Drinks/Week Comments Yes 0 (1 standard drink = 0.6 oz pure alcoho l) Rare Sex Assigned at Date Recorded Not on file documented as of this encounter Nursing Notes Interface, Out Surescripts Prov Query - 08/28/2019 10:42 AM CDT tolterodine (DETROL) 2 MG tablet [Pharmacy Med Name: Tolterodine Tartrate Oral Tablet 2 MG] Miscellaneous - 12 Month Visit -> A qualifying visit was not found within the last 2 years. Last qualifying visit: None (A recent visit (in Family Practice with DELICIA MARTINEZ) was found) Next scheduled visit: None Last ordered by BRIANA CABRERA M: 12/12/2018 (259 days ago) QTY: 180, Refills: 2, Sig: take two tablets by mouth daily (changed but equivalent) Powered by [employer], Reference: [id number], 08/28/2019 10:41:56 AM CDT, Pool: ROB REFILL RN ([id number]) documented in this encounter Plan of Treatment Not on filedocumented as of this encounter Visit Diagnoses Diagnosis Urinary urgency Urgency of urination documented in this encounter Care Teams Nurse Charge Rn Relationship Specialty Start Date End Date Briana Cabrera PA-C PCP - General Physician Dipper Clock And Watch Hands 06/30/17 10/03/19 [address] [place] [address] documented as of this encounter
--- OUTSIDE RECORDS SUMMARY | 2022-01-16 08:00 | XMS_ITS | Encounter Summary ---
:1965 Author Organization [facility] Address [address] [place] [address] Care Team Providers Name Role Phone Briana Vazquez PA-C Primary Care Provider Reason for Visit Reason Comments Refill Encounter Details Date Type Department Care Team Description 02/09/2019 Refill [facility] Syeda Baker PA-C Refill [address] [address] [place], [place] [address] (Wo rk) Social History Tobacco Use Types Packs/Day Years Used Date Smoking Tobacco: Former Cigarettes 0.5 3 Cigars Smokeless Tobacco: Never Comments: Occasional cigar Alcohol Use Standard Drinks/Week Comments Yes 0 (1 standard drink = 0.6 oz pure alcoho l) Rare Sex Assigned at Date Recorded Not on file documented as of this encounter Nursing Notes Megan Huang RN - 02/09/2019 4:25 PM CST No refills authorized through [facility] documented in this encounter Plan of Treatment Not on filedocumented as of this encounter Visit Diagnoses Diagnosis Right knee pain, unspecified chronicity documented in this encounter Care Teams Multiple Spindle Router Operator Relationship Specialty Start Date End Date Briana Vazquez PA-C PCP - General Physician Spar Finisher 06/30/17 10/03/19 [address] [place] [address] documented as of this encounter
--- OUTSIDE RECORDS SUMMARY | 2022-01-16 08:00 | XMS_ITS | Encounter Summary ---
:1965 Author Organization [facility] Address [address], [place] [address] Care Team Providers Name Role Phone Briana Vazquez PA-C Primary Care Provider Reason for Visit Reason Comments Refill lisinopril (ZESTRIL) 10 MG t ablet [Pharmacy Med Name: Lisinopril Oral Tablet 10 MG] Encounter Details Date Type Department Care Team Description 12/11/2018 Refill [facility] Camilo Bullock MD Refill (lisinopril Practice [address] (ZESTRIL) 10 MG tablet [address] [place], [place] [Pharmacy Med Name: [place], [place] [address] Lisinopril Oral Tablet [phone] (Wo rk) 10 MG]) Social History Tobacco Use Types Packs/Day Years Used Date Smoking Tobacco: Former Cigarettes 0.5 3 Cigars Smokeless Tobacco: Never Comments: Occasional cigar Alcohol Use Standard Drinks/Week Comments Yes 0 (1 standard drink = 0.6 oz pure alcoho l) Rare Sex Assigned at Date Recorded Not on file documented as of this encounter Nursing Notes Yulissa Aragon - 12/12/2018 1:50 PM CDT Medication Refill - Overdue Visit Called patient, was: Successful in reaching patient Patient is due for: Lab Visit [Cook Chill Technician: We recently received a refill request for one of your medications. In order to ensure your medication is safe and effective, your clinician needs you to have lab work completed. May I help you schedule a lab visit?] Patient scheduled appointment on: 12/13/18 Yulissa Aragon Please route to: Pool specified in documentation below Page Luther CMA - 12/12/2018 12:30 PM CDT Further Assistance Needed on Refill from Continuous Mining Machine Coal Miner Patient is overdue for: Lab(s) Lab(s) needed: Creatinine, and GFR measure kidney function. A high creatinine level or low GFR may mean your kidneys are not working properly. Potassium helps keep the water (the amount of fluid inside and outside the body's cells) and electrolyte balance of the body. Potassium is also important in how nerves and muscles work. Please call patient to schedule a non fasting Lab Appointment and document using .RIAZ. After attempting to schedule patient: Please route to: Clinician/Care Team Pool Loly Felton RN - 12/12/2018 8:39 AM CDT Pt is overdue for lab work. Please order lab and route to clinical trial leader to schedule pt. Loly Felton RN 12/12/2018, 8:39 AM Interface, Out Surescripts Prov Query - 12/12/2018 8:26 AM CDT lisinopril (ZESTRIL) 10 MG tablet [Pharmacy Med Name: Lisinopril Oral Tablet 10 MG] Hypertension -> Cr and K are overdue (performed 19 months ago, required every 12 months) Last qualifying visit: 07/11/2018 (in [facility]) Next scheduled visit: None Last ordered by CAMILO BULLOCK M: 05/09/2018 (217 days ago) QTY: 90, Refills: 1, Sig: take 1 tablet bymouth daily. (changed but equivalent) Cr: 0.89 mg/dL on 05/27/2017 K: 4.5 mEq/L on 05/27/2017 Powered by HomeJab, Reference: [id number], 12/12/2018 8:26:11 AM CDT, Pool: WYLIE RN ([id number]) documented in this encounter Plan of Treatment Not on filedocumented as of this encounter Results Potassium (12/14/2018 1:46 PM CDT) P athologist Signature Potassium 4.0 3.5 - 5.1 12/14/2018 [facility] mmol/L 6:47 PM CDT [facility] Specimen Anatomical Collection Method / Collection Time Recei lavonne Time (Source) Location / Volume Laterality Blood Venipuncture / 12/14/2018 1:46 12/14/2018 1:46 Unknown PM CDT PM CDT Briana Vazquez PA-C LAB_1 Performing Organization Address City/State/ZIP Code Phon e Number [facility] [address] [address] Creatinine / GFR (12/14/2018 1:46 PM CDT) Patholo gist Method Time Signature Creatinine 0.99 0.73 - 12/14/2018 [facility] 1.18 6:47 PM CDT [facility] mg/dL GFR, Estimated >60 >60 12/14/2018 [facility] mL/min/1. 6:47 PM CDT C[facility]AL [facility] 73m2 GFR, Est If >60 >60 12/14/2018 [facility] mL/min/1. 6:47 PM CDT CENTRAL LAB Barbadian 73m2 Specimen Anatomical Collection Method / Collection Time Recei lavonne Time (Source) Location / Volume Laterality Blood Venipuncture / 12/14/2018 1:46 12/14/2018 1:46 Unknown PM CDT PM CDT Briana Vazquez PA-C LAB_1 Performing Organization Address City/State/ZIP Code Phon e Number [facility] [address] [phone] documented in this encounter Visit Diagnoses Diagnosis Encounter for long-term (current) use of medications - Primary Encounter for long-term (current) use of other medications Essential hypertension (HRC) Unspecified essential hypertension documented in this encounter Care Teams Neon Sign Worker Relationship Specialty Start Date End Date Briana Vazquez PA-C PCP - General Physician Clerk Telegraph Service 06/30/17 10/03/19 [address] [place] [address] documented as of this encounter
--- OUTSIDE RECORDS SUMMARY | 2022-01-16 08:00 | XMS_ITS | Encounter Summary ---
:1965 Author Organization [facility] Address [address] [place] [address] Care Team Providers Name Role Phone Briana Vazquez PA-C Primary Care Provider Reason for Visit Reason Comments Refill Encounter Details Date Type Department Care Team Description 02/08/2019 Refill [facility] [place] Syeda Baker PA-C Refill [address] [place] [address] [phone] (Wo rk) Social History Tobacco Use Types Packs/Day Years Used Date Smoking Tobacco: Former Cigarettes 0.5 3 Cigars Smokeless Tobacco: Never Comments: Occasional cigar Alcohol Use Standard Drinks/Week Comments Yes 0 (1 standard drink = 0.6 oz pure alcoho l) Rare Sex Assigned at Date Recorded Not on file documented as of this encounter Nursing Notes Marely Mello RN - 02/08/2019 3:41 PM CST Unable to refill this request through urgent care. STORE CLERK documented in this encounter Plan of Treatment Not on filedocumented as of this encounter Visit Diagnoses Diagnosis Right knee pain, unspecified chronicity documented in this encounter Care Teams Grinding And Polishing Laborer Relationship Specialty Start Date End Date Briana Vazquez PA-C PCP - General Physician Manager Ccu 06/30/17 10/03/19 [address] [place] [address] documented as of this encounter
--- OUTSIDE RECORDS SUMMARY | 2022-01-16 08:00 | XMS_ITS | Encounter Summary ---
:1965 Author Organization [facility] Address [address], [place] [address] Care Team Providers Name Role Phone Briana Cabrera PA-C Primary Care Provider Reason for Visit Reason Comments Refill omeprazole (PRILOSEC) 20 MG capsule [Pharmacy Med Name: Omeprazole Oral Capsule Delayed Release 20 M G] Encounter Details Date Type Department Care Team Description 06/29/2019 Refill [facility] Briana Cabrera, Ref ill (omeprazole Practice ARLET (PRILOSEC) 20 MG capsule [address] [facility] [address] [Pharmacy Med Name: [place], [place] [address] [place], [place] Omeprazole Oral Capsule [phone] Delayed Release 20 MG]) [phone] (Wo rk) Social History Tobacco Use Types Packs/Day Years Used Date Smoking Tobacco: Former Cigarettes 0.5 3 Cigars Smokeless Tobacco: Never Comments: Occasional cigar Alcohol Use Standard Drinks/Week Comments Yes 0 (1 standard drink = 0.6 oz pure alcoho l) Rare Sex Assigned at Date Recorded Not on file documented as of this encounter Nursing Notes Heidi Espino CMA - 07/10/2019 8:09 AM CDT Prior Authorization Appeal was Denied for Prilosec 20 mg caps . Rationale for denial: Denial Upheld - We are writing in response to an appeal [employer] received forOMEPRAZOLE 20MG CAPSULE DELAYED RELEASE. Please read the following information about the decision todeny this request. The review of this request was based on our Proton Pump Inhibitors (PPIs) Quantity Limit program criteria, starting on page 1. It cannot be approved at this time. This was based on the information from your prescriber. You must meet criteria for this drug to be covered by your plan.- You must be taking the requested drug according to the Food and Drug Administration (FDA) label. This includes how often you will be taking the requested drug and your intended condition. It also includes your dose and length of treatment. You are able to get up to 30 capsules per 30 days for a maximum of 120 days within 365 days. This is the duration limit set by your plan for PPIs. This limit is shared across all PPIs. If a higher quantity or duration must be used, your prescriber must provide the reason. To Appeal 1. Click Appeal 2. Enter any relevant/helpful information in the Note to Payer box 3. Click Accept To change medication 1. Click Change Med 2. Order new medication 3. Click ePA Assistance Quick Action to document 4. Select Change Med option 5. Route to: your department's designated pool If you want the patient to pay [id number] 1. Click ePA Assistance Quick Action to document 2. Select Out of Pocket option 3. Flag or Route to: your department's designated pool Heidi Espino CMA Heidi Espino CMA - 07/05/2019 11:39 AM CDT Prior Authorization was Denied for Prilosec 20mg capsules . Rationale for denial: You are able to get up to 30 capsules per 30 days for a maximum of 120 days within 365 days. This is the duration limit set by your plan for PPIs. This limit is shared across all PPIs. If a higher quantity or duration must be used, your prescriber must provide the reason. To Appeal 1. Click Appeal 2. Enter any relevant/helpful information in the Note to Payer box 3. Click Accept To change medication 1. Click Change Med 2. Order new medication 3. Click ePA Assistance Quick Action to document 4. Select Change Med option 5. Route to: your department's designated pool If you want the patient to pay [id number] 1. Click ePA Assistance Quick Action to document 2. Select Out of Pocket option 3. Flag or Route to: your department's designated pool Heidi Espino CMA Loly Felton RN - 06/30/2019 1:20 PM CDT Per standing order Loly Felton RN Interface, Out [employer] Query - 06/29/2019 7:07 PM CDT omeprazole (PRILOSEC) 20 MG capsule [Pharmacy Med Name: Omeprazole Oral Capsule Delayed Release 20 MG] Miscellaneous - 12 Month Visit -> Refill x 3 months (until due for an office visit) Last qualifying visit: 07/11/2018 (in [facility]) Next scheduled visit: None Last ordered by BRIANA CABRERA M: 01/10/2019 (170 days ago) QTY: 90, Refills: 1, Sig: take 1 capsuleby mouth daily. take 1 hour before a meal. (changed but equivalent) Powered by Cliq, Reference: [id number], 06/29/2019 7:07:39 PM CDT, Pool: WYLIE RN ([id number]) documented in this encounter Plan of Treatment Not on filedocumented as of this encounter Visit Diagnoses Not on filedocumented in this encounter Care Teams Laboratory Tester Relationship Specialty Start Date End Date Briana Cabrera PA-C PCP - General Physician Laborer Shipyard 06/30/17 10/03/19 [address] [place] [address] documented as of this encounter
--- OUTSIDE RECORDS SUMMARY | 2022-01-16 08:00 | XMS_ITS | Encounter Summary ---
:1965 Author Organization [facility] Address [address] [place] [address] Care Team Providers Name Role Phone Briana Vazquez PA-C Primary Care Provider Reason for Visit Reason Comments Refill Encounter Details Date Type Department Care Team Description 01/11/2019 Refill [facility] [place] Syeda Baker PA-C Refill [address] [address] [place], [place] [address] (Wo rk) Social History Tobacco Use Types Packs/Day Years Used Date Smoking Tobacco: Former Cigarettes 0.5 3 Cigars Smokeless Tobacco: Never Comments: Occasional cigar Alcohol Use Standard Drinks/Week Comments Yes 0 (1 standard drink = 0.6 oz pure alcoho l) Rare Sex Assigned at Date Recorded Not on file documented as of this encounter Nursing Notes Megan Huang RN - 01/12/2019 4:28 PM CST No refills authorized through Urgent Care. ING ENGINEER documented in this encounter Plan of Treatment Not on filedocumented as of this encounter Visit Diagnoses Diagnosis Right knee pain, unspecified chronicity documented in this encounter Care Teams Professional Wrestler Relationship Specialty Start Date End Date Briana Vazquez PA-C PCP - General Physician Sales Assistant Entertainment And Media 06/30/17 10/03/19 [address] [place] [address] documented as of this encounter
--- OUTSIDE RECORDS SUMMARY | 2022-01-16 08:00 | XMS_ITS | Encounter Summary ---
:1965 Author Organization [facility] Address [address], [place] [address] Care Team Providers Name Role Phone Briana Cabrera PA-C Primary Care Provider Reason for Visit Reason Onset Date Comments Refill 09/06/2019 lisinopril (ZESTRIL) 10 MG tablet Encounter Details Date Type Department Care Team Description 09/06/2019 Refill [facility] Briana Cabrera, Ref ill (lisinopril Practice ARLET (ZESTRIL) 10 MG tablet) [address] [facility] [address] [place] [address] [address] [place], [place] [phone] (Wo rk) Social History Tobacco Use Types Packs/Day Years Used Date Smoking Tobacco: Former Cigarettes 0.5 3 Cigars Smokeless Tobacco: Never Comments: Occasional cigar Alcohol Use Standard Drinks/Week Comments Yes 0 (1 standard drink = 0.6 oz pure alcoho l) Rare Sex Assigned at Date Recorded Not on file documented as of this encounter Nursing Notes Yulissa Aragon - 09/14/2019 8:29 AM CDT Medication Refill - Overdue Visit Called patient, was: Unable to reach patient 2nd call attempted. Clinician will need to review refill request. Yulissa Aragon Please route to: (HP) Care Team Pool/ (PN) Clinician Brielle Nix - 09/07/2019 4:47 PM CDT Second request received from pharmacy Brielle Nix 09/07/2019, 4:48 PM Camilo Alison Amauri - 09/07/2019 11:44 AM CDT Medication Refill - Overdue Visit Called patient, was: Unable to reach patient 1st call attempted. Left message to call back. Alison Page Maryam Vasquez RN - 09/07/2019 11:26 AM CDT Further Assistance Needed on Refill from Technician Anatomic Pathology Patient is overdue for Office visit. Please call patient to schedule a Video Visit and document using .RIAZ. After attempting to schedule patient: Please route to: Clinician/Care Team Pool Requested Prescriptions Pending Prescriptions Disp Refills ??? lisinopril (ZESTRIL) 10 MG tablet 90 Tablet 0 Sig: Take 1 Tablet by mouth daily. Maryam Vasquez RN 09/07/2019, 11:26 AM Interface, Out Surescripts Prov Query - 09/06/2019 9:13 AM CDT lisinopril (ZESTRIL) 10 MG tablet Hypertension -> A qualifying visit was not found within the last 2 years. Last qualifying visit: None (A recent visit (in Family Practice with CAMILO MARTINEZ) was found) Next scheduled visit: None Last ordered by BRIANA CABRERA: 12/12/2018 (268 days ago) QTY: 90, Refills: 0, Sig: take one tablet by mouth daily (changed but equivalent) Cr: 0.99 mg/dL on 12/14/2018 K: 4 mEq/L on 12/14/2018 Powered by Citilog, Reference: [id number], 09/06/2019 9:13:48 AM CDT, Hector: WYLIE RN ([id number]) documented in this encounter Plan of Treatment Not on filedocumented as of this encounter Visit Diagnoses Diagnosis Essential hypertension (HRC) Unspecified essential hypertension documented in this encounter Care Teams Director Property Relationship Specialty Start Date End Date Briana Cabrera PA-C PCP - General Physician Agricultural Chemist 06/30/17 10/03/19 [address] [place] [address] documented as of this encounter
--- OUTSIDE RECORDS SUMMARY | 2022-01-16 08:00 | XMS_ITS | Encounter Summary ---
:1965 Author Organization [facility] Address [address], [place] [address] Care Team Providers Name Role Phone Briana Cabrera PA-C Primary Care Provider Reason for Visit Reason Comments Refill gabapentin (NEURONTIN) 600 M G tablet [Pharmacy Med Name: Gabapentin Oral Tablet 600 MG] Encounter Details Date Type Department Care Team Description 08/28/2019 Refill [facility] Briana Cabrera, Ref ill (gabapentin Practice ARLET (NEURONTIN) 600 MG [address] [address] tablet [Pharmacy Med [place], [place] [address] [place], [place] Name: Gabapentin Oral [phone] Tablet 600 MG]) [phone] (Wo rk) Social History Tobacco Use Types [...] Prov Query - 08/28/2019 10:42 AM CDT gabapentin (NEURONTIN) 600 MG tablet [Pharmacy Med Name: Gabapentin Oral Tablet 600 MG] None Exists -> Medication cannot be delegated. -> A qualifying visit was not found within the last 2 years. Last qualifying visit: None (A recent visit (in Family Practice with DELICIA MARTINEZ) was found) Next scheduled visit: None Last ordered by BRIANA CABRERA: 12/12/2018 (259 days ago) QTY: 270, Refills: 2, Sig: take one tablet by mouth three times daily (changed but equivalent) Powered by Qvolve, Reference: [id number], 08/28/2019 10:41:56 AM CDT, Pool: WYLIE RN ([id number]) documented in this encounter Plan of Treatment Not on filedocumented as of this encounter Visit Diagnoses Diagnosis Urinary urgency Urgency of urination Chronic low back pain Lumbago documented in this encounter Care Teams Chemical Dependency Therapist Relationship Specialty Start Date End Date Briana Cabrera PA-C PCP - General Physician Signal Processing Engineer 06/30/17 10/03/19 [address] [place] [address] documented as of this encounter
--- OUTSIDE RECORDS SUMMARY | 2022-01-16 08:00 | XMS_ITS | Encounter Summary ---
:1965 Author Organization [facility] Address [address] [address] Care Team Providers Name Role Phone Briana Vazquez PA-C Primary Care Provider Reason for Visit Reason Onset Date Comments Refill 08/03/2019 atorvastatin (LIPITO R) 20 MG tablet Encounter Details Date Type Department Care Team Description 08/03/2019 Refill [facility] Briana Vazquez, Ref ill (atorvastatin Practice ARLET (LIPITOR) 20 MG tablet) [address] [facility] [address] [place], [place] [address] [place], [place] [phone] (Wo rk) Social History Tobacco Use Types Packs/Day Years Used Date Smoking Tobacco: Former Cigarettes 0.5 3 Cigars Smokeless Tobacco: Never Comments: Occasional cigar Alcohol Use Standard Drinks/Week Comments Yes 0 (1 standard drink = 0.6 oz pure alcoho l) Rare Sex Assigned at Date Recorded Not on file documented as of this encounter Nursing Notes Interface, Out Surescripts Prov Query - 08/03/2019 11:02 AM CDT atorvastatin (LIPITOR) 20 MG tablet Miscellaneous - 12 Month Visit -> A qualifying visit was not found within the last 2 years. Last qualifying visit: None (A recent visit (in Family Practice with DELICIA MARTINEZ) was found) Next scheduled visit: None Last ordered by DELICIA MARTINEZ M: 07/11/2018 (388 days ago) QTY: 90, Refills: 3, Sig: take 1 tablet bymouth daily. (unchanged) Powered by Metropolitan App, Reference: [id number], 08/03/2019 11:02:46 AM CDT, Pool: ROB REFILL RN ([id number]) documented in this encounter Plan of Treatment Not on filedocumented as of this encounter Visit Diagnoses Diagnosis Hyperlipidemia with target LDL less than 130 (HRC) Other and unspecified hyperlipidemia documented in this encounter Care Teams Woven Paper Hat Mender Relationship Specialty Start Date End Date Briana Vazquez PA-C PCP - General Physician Chief Lifestyle Officer 06/30/17 10/03/19 [address] [place] [address] documented as of this encounter
--- OUTSIDE RECORDS SUMMARY | 2022-01-16 08:00 | XMS_ITS | Encounter Summary ---
:1965 Author Organization [facility] Address [address] [place] [address] Care Team Providers Name Role Phone Briana Vazquez PA-C Primary Care Provider Reason for Visit Reason Comments Refill Encounter Details Date Type Department Care Team Description 01/09/2019 Refill [facility] [place] Syeda Baker PA-C Refill [address] [place], [place] [address] (Wo rk) Social History Tobacco Use Types Packs/Day Years Used Date Smoking Tobacco: Former Cigarettes 0.5 3 Cigars Smokeless Tobacco: Never Comments: Occasional cigar Alcohol Use Standard Drinks/Week Comments Yes 0 (1 standard drink = 0.6 oz pure alcoho l) Rare Sex Assigned at Date Recorded Not on file documented as of this encounter Nursing Notes Marely Mello RN - 01/10/2019 12:25 PM CST Unable to refill this request through urgent care. R LINE WORKER documented in this encounter Plan of Treatment Not on filedocumented as of this encounter Visit Diagnoses Diagnosis Right knee pain, unspecified chronicity documented in this encounter Care Teams Leather Parts Matcher Relationship Specialty Start Date End Date Briana Vazquez PA-C PCP - General Physician Glass Blower Helper 06/30/17 10/03/19 [address] [place] [address] documented as of this encounter
--- OUTSIDE RECORDS SUMMARY | 2022-01-16 08:00 | XMS_ITS | Encounter Summary ---
:1965 Author Organization [facility] Address [address] [place] [address] Care Team Providers Name Role Phone Briana Vazquez PA-C Primary Care Provider Reason for Visit Reason Comments LAB TESTS, NOS Encounter Details Date Type Department Care Team Description 09/26/2018 [facility] Briana Vazquez PA-C LAB TESTS, NOS [address] [facility] [address] [place], [place] [address] [address] [place] [address] [phone] (Wo rk) Social History Tobacco Use Types Packs/Day Years Used Date Smoking Tobacco: Former Cigarettes 0.5 3 Cigars Smokeless Tobacco: Never Comments: Occasional cigar Alcohol Use Standard Drinks/Week Comments Yes 0 (1 standard drink = 0.6 oz pure alcoho l) Rare Sex Assigned at Date Recorded Not on file documented as of this encounter Nursing Notes Hien Cruz LPN - 09/26/2018 9:04 AM CDT Lab work pended. Hien Cruz LPN Ninfa Felton - 09/26/2018 9:04 AM CDT Please order the GGT also. thanks Ninfa Felton - 09/26/2018 9:01 AM CDT Unable to process the liver panel drawn on 09/24/18, due to hemolysis Please reorder, I have him returning today. Thank you Ninfa Felton documented in this encounter Plan of Treatment Not on filedocumented as of this encounter Results GT (Gamma GT) (09/29/2018 1:12 PM CDT) [facility] Signature GT (Gamma Gt) 43 12 - 64 09/29/2018 [facility] U/L 10:00 PM CDT [facility] Specimen Anatomical Collection Method / Collection Time Recei lavonne Time (Source) Location / Volume Laterality Blood Venipuncture / 09/29/2018 1:12 09/29/2018 1:12 Unknown PM CDT PM CDT Coretta Hawkins APRN, MEDICAL STAFF MANAGER LAB_1 Performing Organization Address City/State/[facility] Code Phon e Number pushd [facility] [address] [address] Liver Panel(Hepatic Function Panel) (09/29/2018 1:12 PM CDT) [employer] Method Time Signature Alkaline 102 40 - 150 09/29/2018 [facility] Phosphatase U/L 7:21 PM CDT CENTRAL LAB Bilirubin, 0.2 0.2 - 1.2 09/29/2018 [facility] Total mg/dL 7:21 PM CDT [facility] Bilirubin, 0.1 0.0 - 0.5 09/29/2018 [facility] Direct mg/dL 7:21 PM CDT [facility] AST (SGOT) 16 10 - 40 09/29/2018 [facility] U/L 7:21 PM CDT [facility] ALT (SGPT) 20 0 - 55 09/29/2018 [facility] U/L 7:21 PM CDT [facility] Protein, Total 7.4 6.4 - 8.3 09/29/2018 [facility] g/dL 7:21 PM CDT [facility] Albumin 4.0 3.5 - 5.0 09/29/2018 [facility] g/dL 7:21 PM CDT [facility] Specimen Anatomical Collection Method / Collection Time Recei lavonne Time (Source) Location / Volume Laterality Blood Venipuncture / 09/29/2018 1:12 09/29/2018 1:12 Unknown PM CDT PM CDT Coretta Hawkins APRN, JENNY LAB_1 Performing Organization Address City/State/ZIP Code Phon e Number [facility] [address] [address] documented in this encounter Visit Diagnoses Diagnosis Bipolar affective disorder, remission st atus unspecified (HRC) - Primary documented in this encounter Care Teams Seamark Advanced Operator Maintainer Relationship Specialty Start Date End Date Briana Vazquez PA-C PCP - General Physician Analytical Lab Analyst 06/30/17 10/03/19 [address] [place] [address] documented as of this encounter
--- OUTSIDE RECORDS SUMMARY | 2022-01-16 08:01 | XMS_ITS | Encounter Summary ---
:1965 Author Organization [facility] Address [address], [place] [address] Care Team Providers Name Role Phone Briana Vazquez PA-C Primary Care Provider Encounter Details Date Type Department Care Team Description 12/10/2017 Lab Visit [facility] Hyperlipidemia [place] [facility] [address] [facility] LDL less than 130 [place], [place] [address] Social History Tobacco Use [...] Name Priority Date/Time Associated Diagnosis Comme nts LIPID PANEL AND Routine 12/10/2017 10:23 Hyperlipidemia with R esults for this DIRECT LDL(IF AM CDT target LDL less than proced ure are in NEEDED) 130 the results section. documented in this encounter Results (ABNORMAL) Lipid Panel and Direct LDL(If Needed) (12/10/2017 10:23 AM CDT) [facility] gist Method Time Signature Hours Fasting 12 hours [facility] Cholesterol 154 0 - 199 [facility] Triglyceride 286 (H) 0 - 149 [facility] HDL 30 (L) >40 mg/dl [facility] LDL, Calc. 67 0 - 129 [facility] Non HDL Chol, 124 0 - 159 [facility] Specimen Anatomical Collection Method Collection Time Receive d Time (Source) Location / / Volume Laterality 12/10/2017 10:23 12/10/2017 AM CDT 10:31 AM CDT Narrative [facility] - 12/10/2017 3:48 PM C DT Performed at [facility], [address] [place] [address] ??[id number] Briana Vazquez PA-C LAB_1 Performing Organization Address City/State/ZIP Code Phon e Number [facility] [phone] documented in this encounter Visit Diagnoses Diagnosis Hyperlipidemia with target LDL less than 130 (HRC) Other and unspecified hyperlipidemia documented in this encounter Care Teams Heavy Repairer Relationship Specialty Start Date End Date Briana Vazquez PA-C PCP - General Physician Detective Narcotics And Vice 06/30/17 10/03/19 [address] [place] [address] documented as of this encounter
--- OUTSIDE RECORDS SUMMARY | 2022-01-16 08:01 | XMS_ITS | Encounter Summary ---
:1965 Author Organization [employer] Address [address] [place] [address] Care Team Providers Name Role Phone Briana Vazquez PA-C Primary Care Provider Reason for Visit Reason Comments Problem Focused Exam Lost Filling/broken tooth Encounter Details Date Type Department Care Team Description 04/18/2018 Office Visit [facility] Rosa Childress P roblem Focused Exam Dentistry DDS (Lost Filling/broken [address] [place] [address] [address] [facility] tooth) [place] [address] [phone] Social History Tobacco Use Types Packs/Day Years Used Date Smoking Tobacco: Former Cigarettes 0.5 3 Cigars Smokeless Tobacco: Never Comments: Occasional cigar Alcohol Use Standard Drinks/Week Comments Yes 0 (1 standard drink = 0.6 oz pure alcoho l) Rare Sex Assigned at Date Recorded Not on file documented as of this encounter Progress Notes Rosa Childress DDS - 04/18/2018 4:00 PM CST DENTAL VISIT NOTE Nicanor (52 y.o.) was seen today for Problem Focused Exam (Lost Filling) S: Broken lower left molar, #19, no discomfort, Rough edges, Pt was chewing On [place] ranc[place] and thetooth broke O: Fractured tooth # 19 DL portion, Filling Intact but se some fracture lines on the filling on the O A: Fractured tooth DL cusp on # 19 P: Discussed with pt to do a crown, Pt wants to wait on the crown, placed Sed fill and adv to be careful CHART REVIEW Reviewed health history, dental history, problem list and radiographs with the patient. TREATMENT DISCUSSION Discussed the dental findings, prognosis and treatment options with the patient. -CONSENT: All questions were answered and the patient gave informed consent to proceed with dental treatment/services. PROCEDURES PERFORMED AT THIS VISIT No anesthetic was given; the procedure was minimally invasive. -SEDATIVE PENTECOSTAL: Prepared #19 with incomplete removal of existing restorations. Applied no liner/varnish/base. Cavity Conditioner placed Preparation filled with glass ionomer material in A2 shade. Post-Op Instructions: Patient was advised of normal post-operative instructions, potential for post-operative sensitivity and the need to exercise care because of the risk of fracture. Care was assisted by SHANE Moyer NEXT PLANNED VISIT: [place] on # 19 Completed dental procedures in this visit ??? LIMITED ORAL EVALUATION ??? 19 FILM-PERIAPICAL FIRST ??? 19 DOL SEDATIVE FILLING Rosa Childress DDS 04/18/2018, 4:58 PM --End of Note-- EONTOLOGIST documented in this encounter Plan of Treatment Scheduled Orders Name Type Priority Associated Order Schedule Diagnoses 19 19 PORCELAIN Dental Procedures Routine 1 Occur rences CROWN starting 2019 19 19 PROVISIONAL Dental Procedures Routine 1 Occ urrences CROWN starting 2019 documented as of this encounter Procedures Procedure Name Priority Date/Time Associated Diagnosis Comme nts 19 FILM-PERIAPICAL Routine 04/18/2018 4:00 PM PALAEONTOLOGIST Fracture of tooth FIRST enamel and dentin 19 DOL SEDATIVE Routine 04/18/2018 4:00 PM PALAEONTOLOGIST Fracture of too th FILLING enamel and dentin documented in this encounter Visit Diagnoses Diagnosis Fracture of tooth enamel and dentin - Pr imary documented in this encounter Care Teams Operator Technician Relationship Specialty Start Date End Date Briana Vazquez PA-C PCP - General Physician Setter Induction Heating Equipment 06/30/17 10/03/19 [address] [place] [address] documented as of this encounter
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
--- OUTSIDE RECORDS SUMMARY | 2022-01-16 08:01 | XMS_ITS | Encounter Summary ---
:1965 Author Organization [employer] Address [address] [place] [address] Care Team Providers Name Role Phone Briana Vazquez PA-C Primary Care Provider Reason for Visit Reason Comments Lost Evangelical Encounter Details Date Type Department Care Team Description 04/18/2018 Telephone [facility] Yaej, Alexis in L, DDS Lost Evangelical Dentistry [address] [facility] [id number] [place] [address] [place], [place] [address] [phone] Social History Tobacco Use Types Packs/Day Years Used Date Smoking Tobacco: Former Cigarettes 0.5 3 Cigars Smokeless Tobacco: Never Comments: Occasional cigar Alcohol Use Standard Drinks/Week Comments Yes 0 (1 standard drink = 0.6 oz pure alcoho l) Rare Sex Assigned at Date Recorded Not on file documented as of this encounter Nursing Notes [facility] [facility] - 04/18/2018 10:49 AM CST EMERGENCY/PROBLEM FOCUS PRIOR VISIT QUESTIONNAIRE 1. Have you ever been seen in our office before? [] No [x] Yes Last Seen: [x] Less than 5 years [] 5 years or more Comments: 2. What is causing your problem? [] Accident [x] Lost Evangelical [] Broken Tooth [] Chipped Tooth [] Toothache Location: [] Upper Left [x] Lower Left [] Upper Front [] Lower Front [] Upper Right [] Lower Right Comments: 3. What kind of discomfort are you in? [x] No Discomfort [] Awake Last Night [] Radiating Pain [] Throbbing Pain Comments: Feels sharp 4. When does the discomfort occur? [] Cold Sensitive [] Constantly [] Pressure Sensitive [] Hot Sensitive [] Occasionally [] Other (fill in comments) Comments: 5. How long has the degree of discomfort lasted? [] Longer Duration [] Other (enter duration in comments) Comments: Last thur Are you experiencing any other signs or symptoms? [] Bleeding/Oozing [] Fever [] Other (list other signs/symptoms in comments) Comments: Are you taking medications for this problem? [x] No [] Yes (list meds in comments) Comments: 6. Have you been advised to take antibiotics prior to dental treatment? [x] No [] Yes Comments: T OFFICE SUPERVISOR documented in this encounter Plan of Treatment Not on filedocumented as of this encounter Visit Diagnoses Not on filedocumented in this encounter Care Teams Radiographer Mammographer Relationship Specialty Start Date End Date Briana Vazquez PA-C PCP - General Physician Space Operations 06/30/17 10/03/19 [address] [place] [address] documented as of this encounter
--- OUTSIDE RECORDS SUMMARY | 2022-01-16 08:01 | XMS_ITS | Encounter Summary ---
:1965 Author Organization [email or web address] Address [address] [address] Care Team Providers Name Role Phone Briana Vazquez PA-C Primary Care Provider Encounter Details Date Type Department Care Team Description 06/28/2017 Refill Order [facility] No Primary/Referring, [address] [place], [place] [address] Social History Tobacco Use Types Packs/Day Years Used Date Smoking Tobacco: Former Cigarettes 0.5 3 Cigars Smokeless Tobacco: Never Comments: Occasional cigar Alcohol Use Standard Drinks/Week Comments Yes 0 (1 standard drink = 0.6 oz pure alcoho l) Rare Sex Assigned at Date Recorded Not on file documented as of this encounter Progress Notes Page Luther CMA - 07/01/2017 7:35 AM CDT Pt has appt 07/01 and lab order signed. Page Luther CMA 07/01/2017, 7:36 AM Yulissa Syed - 06/30/2017 8:07 PM CDT Provider is Briana Vazquez PA-C Kristin Arias RN - 06/30/2017 12:27 PM CDT Unable to sign lab orders. Clinical imaging assistant, please contact patient and assign a primary care provider. Please route message back to [facility]. Kristin Arias, [facility] 06/30/2017 1:25 PM documented in this encounter Nursing Notes Interface, Out Mundi Prov Query - 06/28/2017 6:27 PM CDT ORDER THE FOLLOWING: - HEMOGLOBIN: Pended to encounter. SCHEDULE THE FOLLOWING: - HEMOGLOBIN BY: Now (Due as of 09/04/2016 for diclofenac (VOLTAREN) 50 MG enteric coated tablet) - LAST QUALIFYING VISIT IN [facility]ILY [facility]ACTICE: 05/27/2017 - NEXT SCHEDULED VISIT: None - NEXT LAB APPOINTMENT: None We recently received a refill request on one of your medications. While reviewing your chart, we noticed that you are going to be due for lab work within the next 3 months for the following medication: DICLOFENAC (VOLTAREN) 50 MG ENTERIC COATED TABLET You can schedule your appointment online at [facility] or by calling the appointment center at the phone number listed above. [facility]. Tanna Yen RN [facility] Powered by [employer], Reference: [id number], 06/28/2017 6:27:37 PM CDT, Pool: WYLIE RN ([id number]) documented in this encounter Plan of Treatment Not on filedocumented as of this encounter Results Hemoglobin, Blood (07/02/2017 4:34 PM CDT) athologist Signature Hemoglobin 15.1 13.5 - 17.5 [facility] g/dl Specimen Anatomical Collection Method Collection Time Receive d Time (Source) Location / / Volume Laterality 07/02/2017 4:34 PM 8 4:35 CDT PM CDT Narrative [facility] - 07/02/2017 6:32 PM C DT Performed at [facility], [address] [place] [address] ??[id number] Briana Vazquez PA-C LAB_1 Performing Organization Address City/State/[facility] Phon e Number [facility] [phone] documented in this encounter Visit Diagnoses Diagnosis Encounter for long-term (current) use of medications - Primary Encounter for long-term (current) use of other medications Encounter for long-term (current) use of medications Encounter for long-term (current) use of other medications documented in this encounter Care Teams Mold Checker Relationship Specialty Start Date End Date Briana Vazquez PA-C PCP - General Physician Exceptional Needs Teacher 06/30/17 10/03/19 [address] [place] [address] documented as of this encounter
--- OUTSIDE RECORDS SUMMARY | 2022-01-16 08:01 | XMS_ITS | Encounter Summary ---
:1965 Author Organization [facility] Address [address], [place] [address] Care Team Providers Name Role Phone Briana Cabrera PA-C Primary Care Provider Reason for Visit Reason Comments Refill diclofenac (VOLTAREN) 50 MG enteric coated tablet [Pharmacy Med Name: Diclofenac Sodium Oral Table t Delayed Release 50 MG] Encounter Details Date Type Department Care Team Description 11/09/2017 Refill [facility] Briana Cabrera, Ref ill (diclofenac Practice ARLET (VOLTAREN) 50 MG enteric [address] [place] [address] coated tablet [Pharmacy [place], [place] [address] [place], [place] Med Name: Diclofenac [phone] [id number] Sodium Oral Tablet [phone] (Wo rk) Delayed Release 50 MG]) Social History Tobacco Use Types Packs/Day Years Used Date Smoking Tobacco: Former Cigarettes 0.5 3 Cigars Smokeless Tobacco: Never Comments: Occasional cigar Alcohol Use Standard Drinks/Week Comments Yes 0 (1 standard drink = 0.6 oz pure alcoho l) Rare Sex Assigned at Date Recorded Not on file documented as of this encounter Nursing Notes Interface, Out Surescripts Prov Query - 11/09/2017 11:20 AM CDT diclofenac (VOLTAREN) 50 MG enteric coated tablet [Pharmacy Med Name: Diclofenac Sodium Oral Tablet Delayed Release 50 MG] NSAIDs -> Refill x 9 months, qty: 180, refills: 2 (until due for an office visit and Cr check) Last qualifying visit: 05/27/2017 (in [facility]) Next scheduled visit: None Last ordered by BRIANA CABRERA: 07/01/2017 (131 days ago) QTY: 180, Refills: 0, Sig: take one tablet by mouth twice daily (unchanged) Cr: 0.89 mg/dL on 05/27/2017 HGB: 15.1 g/dL on 07/02/2017 Powered by [employer], Reference: [id number], 11/09/2017 11:20:52 AM CDT, Pool: WYLIE RN ([id number]) documented in this encounter Plan of Treatment Not on filedocumented as of this encounter Visit Diagnoses Not on filedocumented in this encounter Care Teams Medical Numerical Control Operator Relationship Specialty Start Date End Date Briana Cabrera PAAshleyC PCP - General Physician Rug Dyer Helper 06/30/17 10/03/19 [address] [place] [address] documented as of this encounter
--- OUTSIDE RECORDS SUMMARY | 2022-01-16 08:01 | XMS_ITS | Encounter Summary ---
:1965 Author Organization [facility] Address [address] [place] [address] Care Team Providers Name Role Phone Briana Vazquez PA-C Primary Care Provider Encounter Details Date Type Department Care Team Description 06/21/2018 Lab Visit [facility] [address] [place], [place] [address] Social History Tobacco Use [...] on filedocumented in this encounter Care Teams Fuse Maker Relationship Specialty Start Date End Date Briana Vazquez PA-C PCP - General Physician Substation Superintendent 06/30/17 10/03/19 [address] [place] [address] documented as of this encounter
--- OUTSIDE RECORDS SUMMARY | 2022-01-16 08:01 | XMS_ITS | Encounter Summary ---
:1965 Author Organization [employer] Address [address] [place] [address] Care Team Providers Name Role Phone Briana Vazquez PA-C Primary Care Provider Reason for Visit Reason Comments FOLLOW-UP,HOSPITAL Encounter Details Date Type Department Care Team Description 05/09/2018 Office Visit [facility] Camilo Gallagher, Toxic encephalopathy (Primary Dx); Practice MD Chronic low back pain, unspecified back pain laterality, with sciatica presence unspecified; [address] [place] [address] Essential hypertension; [place], [place] Urinary urgency [id number] Social History Tobacco Use Types Packs/Day Years [...] Sign Reading Time Taken Comments Blood Pressure 96/56 05/09/2018 10:03 AM PERSONNEL GENERALIST MANAGER Pulse 85 05/09/2018 10:03 AM PERSONNEL GENERALIST MANAGER Temperature 37.1 ??C (98.7 ??F) 05/09/2018 10:03 AM PERSONNEL GENERALIST MANAGER Respiratory Rate 20 05/09/2018 10:03 AM PERSONNEL GENERALIST MANAGER Oxygen Saturation - - Inhaled Oxygen Concentration - - Weight 97.2 kg (214 lb 3.2 oz) 05/09/2018 10:03 AM PERSONNEL GENERALIST MANAGER Height - - Body Mass Index 28.26 05/27/2017 1:39 PM CDT documented in this encounter Progress Notes Camilo Bullock MD - 05/09/2018 10:00 AM CST SUBJECTIVE: Patient presents for follow up following hospitalization at [facility] April 24-. Patient states he drank over a liter of rum in a 3 hour period and the next morning he was unable holden awakened and transported to [facility]. Apparently had acute toxic encephalopathy from alcohol, also had evidence of cannabinoids and methamphetamine. Also apparently was treated for alcohol withdrawal and delirium tremens during hospitalization. Patient has a history of alcohol dependence as well as bipolar disorder and nonspecific psychosis. He is followed by [facility]-psychologist and psychiatrist. No recent follow up he states. Last communication from psychiatry listed diagnoses as generalized anxiety, major depression, alcohol induced psychosis. He states the niece will frequently take him to AA meetings. States he does not have the taste of alcohol now, has not had any since hospitalization. Currently moved in to his parents house, father had recent stroke in both parents require help. 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 Happy that he has moved from his mobile home, as that was location where his 26-year-old son had committed suicide 2 years ago. Has history of hypertension, urinary urgency, chronic low back pain. Medications reviewed. Current Outpatient Medications Medication Sig Note Dispense Refill ??? atorvastatin (LIPITOR) 10 MG tablet Take 1 Tab by mouth daily. 90 Tab 3 ??? buPROPion (WELLBUTRIN XL) 150 MG 24 hour release tablet Take 150 mg by mouth daily. ??? desonide (DESOWEN) 0.05 % cream Apply twice daily as needed 30 g 1 ??? diclofenac (VOLTAREN) 50 MG enteric coated tablet Take 1 Tablet by mouth two times a day. 180 Tablet 1 ??? Fish Oil Take 900 mg by mouth daily. 90 Each e ??? gabapentin (NEURONTIN) 600 MG tablet Take 1 Tablet by mouth three times a day. 270 Tablet 1 ??? lisinopril (ZESTRIL) 10 MG tablet Take 1 Tablet by mouth daily. 90 Tablet 1 ??? multivitamin (AKA THERAGRAN) tablet Take 1 Tab by mouth daily. ??? OLANZapine (ZYPREXA) 20 MG tablet Take 1 Tablet by mouth every evening. ??? OLANZAPINE OR 15 mg daily at bedtime. ??? omeprazole (PRILOSEC) 20 MG capsule Take 1 Capsule by mouth daily. Take 1 hour before a meal. 90Capsule 1 ??? propranolol (INDERAL) 10 MG tablet Take 10 mg by mouth three times a day. 05/27/2017: Received from: External Pharmacy 5 ??? QUEtiapine (SEROQUEL) 25 MG tablet Take 50 mg by mouth three times a day. ??? sertraline (ZOLOFT) 100 MG tablet Take 200 mg by mouth daily. 01/31/2016: Received from: External Pharmacy 0 ??? tamsulosin (FLOMAX) 0.4 MG CAPS capsule Take 1 Capsule by mouth daily. 90 Capsule 1 ??? tolterodine (DETROL) 2 MG tablet Take 2 Tablets by mouth daily. 180 Tablet 1 ??? traZODone (DESYREL) 100 MG tablet Take 2 Tabs by mouth daily at bedtime. Indications: Sleep 180 Tab 0 ??? valACYclovir (AKA VALTREX) 500 MG tablet Take 1 Tab by mouth two times a day. 60 Tab 0 No current facility-administered medications for this visit. Patient states he checked his blood pressure at home yesterday, was 137/95. Denies lightheadedness or dizziness. Blood pressure medications were held during hospitalization but he is back on lisinopriland propranolol. OBJECTIVE: BP 96/56 Pulse 85 Temp 98.7 ??F (37.1 ??C) (Tympanic) Resp 20 Wt 214 lb 3.2 oz (97.2 kg) BMI 28.26 kg/m?? Alert, no acute distress. Chest is clear. Cardiac rhythm is regular. ASSESSMENT: Alcohol dependence with acute intoxication and toxic encephalopathy, now recovered. Recent alcohol withdrawal. Unclear psychiatric diagnoses but include anxiety, depression, question bipolar disorder Hypertension with low blood pressure today PLAN: Medications refilled Advise scheduling follow up appointment with psychiatrist, he apparently has been contacted by his psychiatry clinic regarding chemical dependency treatment. Encouraged continued AA meetings Advised follow up within 3 months, sooner if any concerns ONNEL GENERALIST MANAGER documented in this encounter Plan of Treatment Not on filedocumented as of this encounter Visit Diagnoses Diagnosis Toxic encephalopathy - Primary Chronic low back pain, unspecified back pain laterality, with sciatica presence unspecified (HRC) Essential hypertension (HRC) Unspecified essential hypertension Urinary urgency Urgency of urination documented in this encounter Care Teams Children'S Ministry Director Relationship Specialty Start Date End Date Briana Vazquez PA-C PCP - General Physician Manager Hair 06/30/17 10/03/19 [address] [place] [address] documented as of this encounter
--- OUTSIDE RECORDS SUMMARY | 2022-01-16 08:01 | XMS_ITS | Encounter Summary ---
:[address] Address [address] [address] Care Team Providers Name Role Phone Briana Cabrera PA-C Primary Care Provider Reason for Visit Reason Comments Refill atorvastatin (LIPITOR) 10 MG tablet [Pharmacy Med Name: Atorvastatin Calcium Oral Tablet 10 MG] Encounter Details Date Type Department Care Team Description 06/17/2018 Refill [facility] Briana Cabrera, Ref ill (atorvastatin Practice ARLET (LIPITOR) 10 MG tablet [id number] [facility] [address] [Pharmacy Med Name: [place], [place] [address] [place] Atorvastatin Calcium [phone] [id number] Oral Tablet 10 MG]) [phone] (Wo rk) Social History Tobacco Use Types Packs/Day Years Used Date Smoking Tobacco: Former Cigarettes 0.5 3 Cigars Smokeless Tobacco: Never Comments: Occasional cigar Alcohol Use Standard Drinks/Week Comments Yes 0 (1 standard drink = 0.6 oz pure alcoho l) Rare Sex Assigned at Date Recorded Not on file documented as of this encounter Nursing Notes Jessica Baez RN - 06/17/2018 2:11 PM CDT Refilled per standing order. Jessica Baez RN Jacquie López RMA - 06/17/2018 2:08 PM CDT Requested medication has . Expiration date is 364-365 days from the order date. Will route [place] PUCKETT to complete. JACQUIE Phipps 06/17/2018, 2:08 PM Interface, Out [employer] Prov Query - 06/17/2018 2:00 PM CDT atorvastatin (LIPITOR) 10 MG tablet [Pharmacy Med Name: Atorvastatin Calcium Oral Tablet 10 MG] Cholesterol - Statins -> The most recent order on 05/27/2018. -> Refill x 12 months, qty: 90, refills: 3 (until due for an office visit) Last qualifying visit: 05/09/2018 (in [facility]) Next scheduled visit: None Last ordered by BRIANA CABRERA M: 05/27/2017 (386 days ago) QTY: 90, Refills: 3, Sig: take 1 tab by mouth daily. (changed but equivalent) LDL: 67 mg/dL on 12/10/2017 Powered by [employer], Reference: [id number], 06/17/2018 2:00:34 PM CDT, Pool: WYLIE RN ([id number]) Interface, Out [employer]Bench[employer]ripts Prov Query - 06/17/2018 2:00 PM CDT The following lab order(s) may be associated with the following Patient Result Comment (Entered by Briana Cabrera PA-C at 12/10/2017 5:07 PM): LIPID PANEL AND DIRECT LDL(IF NEEDED) Looks good! Continue AtorvastatinJaclyn Nik Cabrera PA-C documented in this encounter Plan of Treatment Not on filedocumented as of this encounter Visit Diagnoses Diagnosis Hyperlipidemia with target LDL less than 130 (HRC) Other and unspecified hyperlipidemia documented in this encounter Care Teams Benefit Director Relationship Specialty Start Date End Date Briana Cabrera PA-C PCP - General Physician Tire Mold Tester 06/30/17 10/03/19 [address] [place] [address] documented as of this encounter
--- OUTSIDE RECORDS SUMMARY | 2022-01-16 08:01 | XMS_ITS | Encounter Summary ---
:1965 Author Organization [facility] Address [address], [place] [address] Care Team Providers Name Role Phone Briana Vazquez PA-C Primary Care Provider Reason for Visit Reason Comments No Show pt.failed op appt. 7 units Encounter Details Date Type Department Care Team Description 02/22/2018 Telephone [facility] Genesis Khanna LDA No Show ( pt.failed op Dentistry [address] [facility] appt. 7 units ) [address] [place], [place] [id number] Social History Tobacco Use Types Packs/Day Years Used Date Smoking Tobacco: Former Cigarettes 0.5 3 Cigars Smokeless Tobacco: Never Comments: Occasional cigar Alcohol Use Standard Drinks/Week Comments Yes 0 (1 standard drink = 0.6 oz pure alcoho l) Rare Sex Assigned at Date Recorded Not on file documented as of this encounter Nursing Notes Genesis Wood LDA - 02/22/2018 10:49 AM CST Pt. Forgot about op appt. 7units with Dr. Childress, I went over no show / fail appt. Policy. He said he will call back and resched. SHANE Edwards 02/22/2018, 10:51 AM DEVELOPER documented in this encounter Plan of Treatment Not on filedocumented as of this encounter Visit Diagnoses Not on filedocumented in this encounter Care Teams Smash Fixer Relationship Specialty Start Date End Date Briana Vazquez PA-C PCP - General Physician Piano Sounding Board Matcher 06/30/17 10/03/19 [address] [place] [address] documented as of this encounter
--- OUTSIDE RECORDS SUMMARY | 2022-01-16 08:01 | XMS_ITS | Encounter Summary ---
:1965 Author Organization [employer] Address [address] [place] [address] Care Team Providers Name Role Phone Briana Vazquez PA-C Primary Care Provider Reason for Visit Reason Comments Restorative Services Comps: , , Encounter Details Date Type Department Care Team Description 04/06/2018 Office Visit [facility] Rosa Childress R estorative Services Dentistry DDS (Comps: , , , ) [address] [facility] [address] [place] [phone] Social History Tobacco Use Types Packs/Day Years Used Date Smoking Tobacco: Former Cigarettes 0.5 3 Cigars Smokeless Tobacco: Never Comments: Occasional cigar Alcohol Use Standard Drinks/Week Comments Yes 0 (1 standard drink = 0.6 oz pure alcoho l) Rare Sex Assigned at Date Recorded Not on file documented as of this encounter Patient Instructions Patient InstructionsRosa Childress DDS - 04/06/2018 9:20 AM CST operative instructions for composite restorations: 1. Sensitivity is usually most noticeable the first 12-24 hours after the anesthetic wears off. Adv Ibuprofen or Tylenol before the numbing wears off 2. Sensitivity, especially to cold, is common for a few days following a dental filling. Usually thedeeper the cavity, the more sensitive the tooth may be. 3. The gum tissue could have been irritated during the procedure and may be sore for a few days together with the anesthetic injection site. 4. The filling is fully set and ready to eat on when you leave the office. Please be careful eating until the anesthetic wears off so you don???t bite your lips, cheeks, or tongue. 5. observed until the anesthetic wears off. Due to the strange feeling of the anesthetic, you may chew the inside of their lips, cheeks, or tongue which can cause serious damage. 6. The finished zoroastrianism may be contoured slightly different and have a different texture than the original tooth. Your tongue usually magnifies this small difference, but you will become accustomedto this in a few days. 7. If after a week or two, your teeth feel they do not touch correctly please call the office. This problem can be solved with a quick adjustment to the filling. 8. Fillings do not last forever. Like a new set of tires, fillings can wear and breakdown. Proper brushing and flossing is recommended to help you retain your fillings Having your teeth cleaned every six months and an exam and x-rays every year will help prolong the life of your fillings. ICE NURSE documented in this encounter Progress Notes Rosa Childress DDS - 04/06/2018 9:20 AM CST DENTAL VISIT NOTE Nicanor (52 y.o.) was seen today for Restorative Services (Comps: 21, 5, 11, 30) No changes with health or meds since last dental visit per pt. CHART REVIEW Reviewed health history, dental history, problem list, periodontal charting and radiographs with thepatient. TREATMENT DISCUSSION Discussed the dental findings, prognosis and treatment options with the patient. All questions were answered and the the patient gave informed consent to proceed with treatment/services. PROCEDURES PERFORMED AT THIS VISIT -ANESTHESIA: Topical with 20% benzocaine. 2.0 carpules 2% lidocaine with 1:100,000 epinephrine was administered with infiltration in #11, #21. No adverse side effects were observed. Anesthesia was delivered by Rosa Childress DDS. -COMPOSITE YAZIDI: Prepared #21 with complete caries removal. Prepared #5, #11, #19, #30 with minimal removal of tooth structure. Isolated area with high speed suction, cotton rolls, a rubber dam and a cheek guard. Applied Vitrebond on tooth 21. Bonding with Scotchbond [place] bonding material. Preparation on 5, 11, 21 and 30 was filled with flowable comp. material in shade: A4 and Comp. Material in shade: C4. Preparation on 19 was filled with Fuji shade A3. Polishing adjuncts: Enhance polishing cup and soflex discs Verified occlusion, contacts, margins and aesthetics. Post-Op Instructions: Patient was advised of normal post-operative instructions, potential for post-operative sensitivity and the need to exercise care because of the risk of fracture. NEXT VISIT Next planned visit is Hyg. Care was assisted by SHANE Casanova 04/06/2018, 9:12 AM Completed dental procedures in this visit ??? 11 F COMPOSITE-1 SURFACE ANTERIOR ??? 21 D RESIN-BASED COMPOSITE-1 SURFACE-POSTERIO ??? 21 RESIN-BASED COMPOSITE-3 SURF-POSTERIOR ??? 5 DB RESIN-BASED COMPOSITE-2 SURF-POSTERIOR ??? 30 O RESIN-BASED COMPOSITE-1 SURFACE-POSTERIO Rosa Childress DDS 04/06/2018, 12:07 PM --End of Note-- ICE NURSE documented in this encounter Plan of Treatment Not on filedocumented as of this encounter Procedures Procedure Name Priority Date/Time Associated Diagnosis Comme nts 21 RESIN-BASED Routine 04/06/2018 9:20 AM HOSPICE NURSE Dental attri tion, COMPOSITE-3 excessive SURF-POSTERIOR Fracture of tooth enamel and dentin 30 O RESIN-BASED Routine 04/06/2018 9:20 AM HOSPICE NURSE Dental attriti on, COMPOSITE-1 excessive SURFACE-POSTERIO 21 D RESIN-BASED Routine 04/06/2018 9:20 AM HOSPICE NURSE Dental caries extending COMPOSITE-1 into middle third of SURFACE-POSTERIO dentin 5 DB RESIN-BASED Routine 04/06/2018 9:20 AM HOSPICE NURSE Fracture of to oth COMPOSITE-2 enamel and dentin SURF-POSTERIOR 11 F COMPOSITE-1 Routine 04/06/2018 9:20 AM HOSPICE NURSE Fractured dent al SURFACE ANTERIOR restorative material documented in this encounter Visit Diagnoses Diagnosis Fracture of tooth enamel and dentin - Pr imary Fractured dental restorative material Other unsatisfactory zoroastrianism of exis ting tooth Dental attrition, excessive Excessive attrition of teeth, unspecifie d Dental caries extending into middle thir d of dentin documented in this encounter Care Teams Advice Nurse Relationship Specialty Start Date End Date Briana Vazquez PA-C PCP - General Physician Harness Tier 06/30/17 10/03/19 [address] [place] [address] documented as of this encounter
--- OUTSIDE RECORDS SUMMARY | 2022-01-16 08:01 | XMS_ITS | Encounter Summary ---
:1965 Author Organization [employer] Address [address] [place] [address] Care Team Providers Name Role Phone Briana Vazquez PA-C Primary Care Provider Reason for Visit Reason Comments Lost Tenriism Encounter Details Date Type Department Care Team Description 12/09/2017 Telephone [facility] Margy, Alexis in [place], DDS Lost Tenriism Dentistry [address] [facility] [address] [place] [address] [place], [place] [address] [phone] Social History Tobacco Use Types Packs/Day Years Used Date Smoking Tobacco: Former Cigarettes 0.5 3 Cigars Smokeless Tobacco: Never Comments: Occasional cigar Alcohol Use Standard Drinks/Week Comments Yes 0 (1 standard drink = 0.6 oz pure alcoho l) Rare Sex Assigned at Date Recorded Not on file documented as of this encounter Nursing Notes Rachael Jesus - 12/09/2017 12:44 PM CDT EMERGENCY/PROBLEM FOCUS PRIOR VISIT QUESTIONNAIRE 1. Have you ever been seen in our office before? [] No [x] Yes Last Seen: [x] Less than 5 years [] 5 years or more Comments: 2. What is causing your problem? [] Accident [x] Lost Tenriism [] Broken Tooth [] Chipped Tooth [] Toothache Location: [] Upper Left [x] Lower Left [] Upper Front [] Lower Front [] Upper Right [] Lower Right Comments: 2nd from the back--he sill see Dr Koratkar today--if he has a portion due we will have to send him home with a bill 3. What kind of discomfort are you in? [x] No Discomfort [] Awake Last Night [] Radiating Pain [] Throbbing Pain Comments: 4. When does the discomfort occur? [] Cold Sensitive [] Constantly [] Pressure Sensitive [] Hot Sensitive [] Occasionally [] Other (fill in comments) Comments: 5. How long has the degree of discomfort lasted? [] Longer Duration [] Other (enter duration in comments) Comments: Couple of months ago he lost the filling Are you experiencing any other signs or symptoms? [] Bleeding/Oozing [] Fever [] Other (list other signs/symptoms in comments) Comments: Are you taking medications for this problem? [] No [] Yes (list meds in comments) Comments: 6. Have you been advised to take antibiotics prior to dental treatment? [] No [] Yes Comments: documented in this encounter Plan of Treatment Not on filedocumented as of this encounter Visit Diagnoses Not on filedocumented in this encounter Care Teams Material Flow Engineer Relationship Specialty Start Date End Date Briana Vazquez PA-C PCP - General Physician Administrative Support Clerk 06/30/17 10/03/19 [address] [place] [address] documented as of this encounter
--- OUTSIDE RECORDS SUMMARY | 2022-01-16 08:01 | XMS_ITS | Encounter Summary ---
:1965 Author Organization [facility] Address [address], [place] [address] Care Team Providers Name Role Phone No Primary/Referring, Phy Primary Care Provider Unavailable Encounter Details Date Type Department Care Team Description 05/27/[address] [facility] ory Essential hypertension; [address] [facility] Screening for viral disease [place], [place] [address] Social History Tobacco Use [...] Name Priority Date/Time Associated Diagnosis Comme nts HIV 1/2 AG/AB 4TH Routine 05/27/2017 2:42 PM Screening for vir al Results for this GEN CDT disease procedure are i n the results section. CREATININE / GFR Routine 05/27/2017 2:42 PM Essential Resul ts for this CDT hypertension procedure are i n the results section. HEPATITIS C Routine 05/27/2017 2:42 PM Screening for viral Re sults for this ANTIBODY, WITH CDT disease procedure are in REFLEX the results section. POTASSIUM Routine 05/27/2017 2:42 PM Essential Results f or this CDT hypertension procedure are i n the results section. documented in this encounter Results HIV 1/2 Ag/Ab 4th Generation (05/27/2017 2:42 PM CDT) [facility] Method Time Signature HIV 1/2 AG/AB Negative NEGNR [facility] 4thGEN (Non LABORATORIES Reactive) Comment: HIV-1 p24 Ag and HIV-1/HIV-2 Ab not detected. Specimen Anatomical Collection Method Collection Time Receive d Time (Source) Location / / Volume Laterality 05/27/2017 2:42 PM 8 2:44 CDT PM CDT Narrative [facility] - 05/27/2017 7:17 PM C DT Performed at [address] ??[id number] Briana Vazquez PA-C LAB_1 Performing Organization Address [facility] Phon e Number [facility] [phone] Hepatitis C Antibody, with Reflex (05/27/2017 2:42 PM CDT) [facility] gist Method Time Signature Anti-HCV Negative (Non NEGNR [facility] Reactive) LABORATORIES Comment: Antibodies to HCV not detected. Does not exclude the possibility of exposure to HCV. Specimen Anatomical Collection Method Collection Time Receive d Time (Source) Location / / Volume Laterality 05/27/2017 2:42 PM 8 2:44 CDT PM CDT Narrative [facility] - 05/27/2017 6:44 PM C DT Performed at [address] ??[id number] Briana Vazquez PA-C LAB_1 Performing Organization Address [facility] Phon e Number [facility] [phone] Creatinine / GFR (05/27/2017 2:42 PM CDT) [facility] Creatinine 0.89 0.73 - [facility] 1.18 mg/dl LABORATORIES GFR, Estimated >60 >60 [facility] ml/min/1.7 LABORATORIES 3m2 GFR, Est., If >60 >60 [facility] Black ml/min/1.7 LABORATORIES 3m2 Specimen Anatomical Collection Method Collection Time Receive d Time (Source) Location / / Volume Laterality 05/27/2017 2:42 PM 8 2:44 CDT PM CDT Narrative [facility] - 05/27/2017 6:23 PM C DT Performed at [address] [place] [address] [place], [place] ??[address] Briana Vazquez PA-C LAB_1 Performing Organization Address [facility] Phon e Number [facility] [phone] Potassium (05/27/2017 2:42 PM CDT) athologist Signature Potassium 4.5 3.5 - 5.1 [facility] mmol/L Specimen Anatomical Collection Method Collection Time Receive d Time (Source) Location / / Volume Laterality 05/27/2017 2:42 PM 8 2:44 CDT PM CDT Narrative [facility] - 05/27/2017 6:23 PM C DT Performed at [address] ??[address] Briana Vazquez PA-C LAB_1 Performing Organization Address [facility] Phon e Number [facility] [phone] documented in this encounter Visit Diagnoses Diagnosis Essential hypertension (HRC) Unspecified essential hypertension Screening for viral disease Special screening examination for unspec ified viral disease documented in this encounter Care Teams Proced Tech Relationship Specialty Start Date End Date No Primary/Referring, Phy PCP - General 04/29/17 documented as of this encounter
--- OUTSIDE RECORDS SUMMARY | 2022-01-16 08:01 | XMS_ITS | Encounter Summary ---
:1965 Author Organization [facility] Address [address] [place] [address] Care Team Providers Name Role Phone No Primary/ReferringOsiel Primary Care Provider Unavailable Encounter Details Date Type Department Care Team Description 04/29/2017 Notes/Orders Security Contact Danny Hawkins, ELECTRIC FURNACE OPERATOR, NEURODIAGNOSTIC TECHNICIAN [address] [facility] [address] [place] [address] (Wo rk) Social History Tobacco Use Types [...] on filedocumented in this encounter Care Teams Clinical Data Assistant Relationship Specialty Start Date End Date No Primary/ReferringOsiel PCP - General 04/29/17 documented as of this encounter
--- OUTSIDE RECORDS SUMMARY | 2022-01-16 08:01 | XMS_ITS | Encounter Summary ---
:1965 Author Organization [facility] Address [address], [place] [address] Care Team Providers Name Role Phone Briana Vazquez PA-C Primary Care Provider Encounter Details Date Type Department Care Team Description 07/02/2017 Lab Visit [facility] Encounter for long-term [address] [facility] (current) use of [place], [place] [address] medications [phone] Social History Tobacco Use Types Packs/Day Years [...] Name Priority Date/Time Associated Diagnosis Comme nts HEMOGLOBIN, BLOOD Routine 07/02/2017 4:34 PM Encounter for Res ults for this CDT long-term (current) procedur e are in use of medications the resul ts section. documented in this encounter Results Hemoglobin, Blood (07/02/2017 4:34 PM CDT) P athologist Signature Hemoglobin 15.1 13.5 - 17.5 [facility] g/dl Specimen Anatomical Collection Method Collection Time Receive d Time (Source) Location / / Volume Laterality 07/02/2017 4:34 PM 8 4:35 CDT PM CDT Narrative [facility] - 07/02/2017 6:32 PM C DT Performed at [address] [place], [place] ??[address] Briana Vazquez PA-C LAB_1 Performing Organization Address City/State/[facility] Code Phon e Number [facility] [phone] documented in this encounter Visit Diagnoses Diagnosis Encounter for long-term (current) use of medications Encounter for long-term (current) use of other medications documented in this encounter Care Teams Digital Sales Planner Relationship Specialty Start Date End Date Briana Vazquez PA-C PCP - General Physician License Distributor 06/30/17 10/03/19 [address] [place] [address] documented as of this encounter
--- OUTSIDE RECORDS SUMMARY | 2022-01-16 08:01 | XMS_ITS | Encounter Summary ---
:1965 Author Organization [facility] Address [address] [place] [address] Care Team Providers Name Role Phone Yaneth Dodd MD Primary Care Provider Reason for Visit Reason Onset Date Comments Refill 03/05/2017 Encounter Details Date Type Department Care Team Description 03/05/2017 Refill [facility] BriannaJonathan , DO Refill [facility] [address] [place] [id number] [place] [address] [phone] Social History Tobacco Use Types Packs/Day Years Used Date Smoking Tobacco: Former Cigarettes 0.5 3 Cigars Smokeless Tobacco: Never Comments: Occasional cigar Alcohol Use Standard Drinks/Week Comments Yes 0 (1 standard drink = 0.6 oz pure alcoho l) Rare Sex Assigned at Date Recorded Not on file documented as of this encounter Nursing Notes Patricia Frey - 03/18/2017 11:07 AM CST Received another refill for tamsulosin GER TRANSFER Cortney Jesus - 03/05/2017 4:28 PM CST Fax received for a refill on tamsulosin (FLOMAX) 0.4 MG CAPS capsule and would like it sent to Pharmacy: [id number] [place], [place] - [address] [address] GER TRANSFER documented in this encounter Plan of Treatment Not on filedocumented as of this encounter Visit Diagnoses Not on filedocumented in this encounter Care Teams Information Technology Intern Relationship Specialty Start Date End Date Yaneth Dodd MD PCP - General 08/01/09 04/28/17 [address] [place] [address] documented as of this encounter
--- OUTSIDE RECORDS SUMMARY | 2022-01-16 08:01 | XMS_ITS | Encounter Summary ---
:1965 Author Organization [facility] Address [address], [place] [address] Care Team Providers Name Role Phone Briana Cabrera PA-C Primary Care Provider Reason for Visit Reason Comments Refill diclofenac (VOLTAREN) 50 MG enteric coated tablet [Pharmacy Med Name: Diclofenac Sodium Oral Table t Delayed Release 50 MG] Encounter Details Date Type Department Care Team Description 04/06/2018 Refill [facility] Briana Cabrera, Ref ill (diclofenac Practice ARLET (VOLTAREN) 50 MG enteric [address] coated tablet [Pharmacy [place], [place] [address] [place], [place] Med Name: Diclofenac [phone] [id number] Sodium Oral Tablet [phone] (Wo rk) Delayed Release 50 MG]) Social [...] encounter Nursing Notes Jessica Baez RN - 04/06/2018 2:35 PM CST Refilled per standing order. Jessica Baez RN EXPERT Interface, Out Surescripts Prov Query - 04/06/2018 11:52 AM CST diclofenac (VOLTAREN) 50 MG enteric coated tablet [Pharmacy Med Name: Diclofenac Sodium Oral Tablet Delayed Release 50 MG] NSAIDs -> Refill x 3 months (until due for an office visit and Cr check) Last qualifying visit: 05/27/2017 (in [facility]) Next scheduled visit: None Last ordered by BRIANA CABRERA: 11/09/2017 (148 days ago) QTY: 180, Refills: 0, Sig: take one tablet by mouth twice daily (unchanged) Cr: 0.89 mg/dL on 05/27/2017 H[facility]: 15.1 g/dL on 07/02/2017 Powered by [employer], Reference: [id number], 04/06/2018 11:52:52 AM GEM EXPERT, Hector: ROB REFILL RN ([id number]) EXPERT documented in this encounter Plan of Treatment Not on filedocumented as of this encounter Visit Diagnoses Not on filedocumented in this encounter Care Teams Pole Maker Relationship Specialty Start Date End Date Briana Cabrera PAAshleyC PCP - General Physician Implementation Technician 06/30/17 10/03/19 [address] [place] [address] documented as of this encounter
--- OUTSIDE RECORDS SUMMARY | 2022-01-16 08:01 | XMS_ITS | Encounter Summary ---
:1965 Author Organization [facility] Address [address], [place] [address] Care Team Providers Name Role Phone Yaneth Strong MD Primary Care Provider Reason for Visit Reason Comments Refill omeprazole (PRILOSEC) 20 MG capsule [Pharmacy Med Name: Omeprazole Oral Capsule Delayed Release 20 M G] Encounter Details Date Type Department Care Team Description 03/05/2017 Refill [facility] Yaneth Strong R efill (omeprazole Practice (PRILOSEC) 20 MG capsule [address] [facility] [address] [Pharmacy Med Name: [place], [place] [address] [place], [place] Omeprazole Oral Capsule [phone] [id number] Delayed Release 20 MG]) [phone] (Wo rk) Social History Tobacco Use Types Packs/Day Years Used Date Smoking Tobacco: Former Cigarettes 0.5 3 Cigars Smokeless Tobacco: Never Comments: Occasional cigar Alcohol Use Standard Drinks/Week Comments Yes 0 (1 standard drink = 0.6 oz pure alcoho l) Rare Sex Assigned at Date Recorded Not on file documented as of this encounter Nursing Notes Interface, Out Surescripts Prov Query - 03/05/2017 10:32 AM CST omeprazole (PRILOSEC) 20 MG capsule [Pharmacy Med Name: Omeprazole Oral Capsule Delayed Release 20 MG] Proton Pump Inhibitors -> The most recent order on 01/30/2017. -> Refill x 3 months (courtesy refill. overdue for an office visit) Last qualifying visit: 01/31/2016 (in Family Practice) Next scheduled visit: None Last ordered by YANETH STRONG: 01/31/2016 (399 days ago) QTY: 90, Refills: 3, Sig: take 1 cap by mouth daily. take 1 hour before a meal. (changed but equivalent) Powered by [employer], Reference: [id number], 03/05/2017 10:32:44 AM Hector CENTENO: WYLIE RN ([id number]) BO documented in this encounter Plan of Treatment Not on filedocumented as of this encounter Visit Diagnoses Not on filedocumented in this encounter Care Teams Rooter Operator Relationship Specialty Start Date End Date Yaneth Strong MD PCP - General 08/01/09 04/28/17 [address] [place] [address] documented as of this encounter
--- OUTSIDE RECORDS SUMMARY | 2022-01-16 08:01 | XMS_ITS | Encounter Summary ---
:1965 Author Organization [facility] Address [address] [address] Care Team Providers Name Role Phone Briana Vazquez PA-C Primary Care Provider Reason for Visit Reason Comments Refill diclofenac (VOLTAREN) 50 MG enteric coated tablet [Pharmacy Med Name: Diclofenac Sodium Oral Table t Delayed Release 50 MG] Encounter Details Date Type Department Care Team Description 06/28/2017 Refill [facility] Camilo Bullock MD Refill (diclofenac Practice [address] (VOLTAREN) 50 MG enteric [address] [place], [place] coated tablet [Pharmacy [place], [place] [address] Med Name: Diclofenac [phone] (Wo rk) Sodium Oral Tablet Delayed R elease 50 MG]) Social History Tobacco Use Types Packs/Day Years Used Date Smoking Tobacco: Former Cigarettes 0.5 3 Cigars Smokeless Tobacco: Never Comments: Occasional cigar Alcohol Use Standard Drinks/Week Comments Yes 0 (1 standard drink = 0.6 oz pure alcoho l) Rare Sex Assigned at Date Recorded Not on file documented as of this encounter Nursing Notes Inocencia Cherry - 06/30/2017 4:07 PM CDT Medication Refill - Overdue Visit Called patient, was: Successful in reaching patient We recently received a refill request on one of your medications. Your clinician would like to see you for a(n): lab visit Patient scheduled appoint on: tomorrow. Patient has enough medication for a few days. I will give this refill request to your clinician and let him/her know that you have been scheduled. Inocencia Cherry Please route to: Care Team Hector (Clinician to Approve/Deny) Jessica Baez RN - 06/29/2017 2:55 PM CDT Further Assistance Needed on Refill from [employer] Patient is overdue for Lab(s). Last qualifying visit: 05/27/2017 (in Family Practice) ? Next scheduled visit: None ? Last ordered by CAMILO BULLOCK: 03/17/2017 (103 days ago) QTY: 180, Refills: 0, Sig: take one tablet by mouth twice daily (unchanged) ? Cr: 0.89 mg/dL on 05/27/2017 ?? HGB: 14.4 g/dL on 09/10/2015 Please call patient to schedule a Lab Appointment and document using .RIAZ. After attempting toschedule patient: Please route to: Clinician/Care Team Hector Baez RN 06/29/2017, 2:56 PM Interface, Out Surescripts Prov Query - 06/28/2017 6:27 PM CDT diclofenac (VOLTAREN) 50 MG enteric coated tablet [Pharmacy Med Name: Diclofenac Sodium Oral Tablet Delayed Release 50 MG] NSAIDs -> HGB is overdue (performed 22 months ago, required every 12 months) Last qualifying visit: 05/27/2017 (in Family Practice) Next scheduled visit: None Last ordered by CAMILO BULLOCK M: 03/17/2017 (103 days ago) QTY: 180, Refills: 0, Sig: take one tabletby mouth twice daily (unchanged) Cr: 0.89 mg/dL on 05/27/2017 HGB: 14.4 g/dL on 09/10/2015 Powered by [employer], Reference: [id number], 06/28/2017 6:27:37 PM CDT, Pool: WYLIE RN ([id number]) documented in this encounter Plan of Treatment Not on filedocumented as of this encounter Visit Diagnoses Not on filedocumented in this encounter Care Teams Die Tripper Relationship Specialty Start Date End Date Briana Vazquez PA-C PCP - General Physician Science Editor 06/30/17 10/03/19 [address] [place] [address] documented as of this encounter
--- OUTSIDE RECORDS SUMMARY | 2022-01-16 08:01 | XMS_ITS | Encounter Summary ---
:1965 Author Organization [facility] Address [address], [place] [address] Care Team Providers Name Role Phone No Primary/Referring, Phy Primary Care Provider Unavailable Reason for Referral Procedure/Equipment (Routine) - Closed Specialty Diagnoses / Procedures Referred By Contact Refer red To Contact Diagnoses Encounter for screening colonoscopy Briana Vazquez PA-C [address] [place], [place] [address] Referral ID Status Reason Start Date Expiration Date Visits Requ ested Visits Authorized [id number] Closed 05/27/2017 08/26/2018 1 1 Scheduling Instructions If scheduling assistance is needed, yazmin manuel inquire with the medical office staff upon exiting your appointment or contact the ordering clinic for recommended locations. This recommended service/s may not be co richard by your insurance coverage. To find out your specific benefit coverage, please c all the number on your insurance card. Consult/Transfer Care (Routine) - Closed Specialty Diagnoses / Procedures Referred By Contact Refer red To Contact Diagnoses Essential hypertension (HRC) Briana Vazquez PA-C [address] [place], [place] [address] Referral ID Status Reason Start Date Expiration Date Visits Requ ested Visits Authorized [id number] Closed 05/27/2017 08/26/2018 1 1 Scheduling Instructions Your provider has recommended an appoint ment with a [facility] nurse. A medical scheduler will contact you within the next 3 busin ess days to assist you in setting up this appointment. Reason for Visit Reason Comments FOLLOW-UP,LAB FOLLOW-UP,BP Health Maintenance Communication Health Maintanence Declined flu Consult/Transfer Care (Routine) - Closed Specialty Diagnoses / Procedures Referred By Contact Refer red To Contact Diagnoses Encounter for long-term (current) [place] [address] [place], [place] [address] Referral ID Status Reason Start Date Expiration Date Visits Requ ested Visits Authorized [id number] Closed 12/30/2016 01/30/2017 1 1 Encounter Details Date Type Department Care Team Description 05/27/2017 Office Visit [facility] Briana Vazquez, Shade ential hypertension (Primary Dx); Practice [facility] Hyperlipidemia with target LDL less than 130; [address] [facility] [address] [facility] Screening for viral disease; [place], [place] Chronic low back pain, unspecified back pain laterality, with sciatica presence unspecified; [id number] Urinary urgency; [phone] Encounter for s creening colonoscopy; (Work) Seborrheic dermatitis; [phone] Bipolar affecti ve disorder, remission status unspecified ([facility]) (Fax) Social History Tobacco Use Types Packs/Day Years [...] Sign Reading Time Taken Comments Blood Pressure 138/92 05/27/2017 1:47 PM CDT Pulse 67 05/27/2017 1:47 PM CDT Temperature 36.8 ??C (98.3 ??F) 05/27/2017 1:39 PM CDT Respiratory Rate 14 05/27/2017 1:39 PM CDT Oxygen Saturation - - Inhaled Oxygen Concentration - - Weight 102.1 kg (225 lb 2 oz) 05/27/2017 1:39 PM CDT Height 185.4 cm (6' 1) 05/27/2017 1:39 PM CDT Body Mass Index 29.7 05/27/2017 1:39 PM CDT documented in this encounter Progress Notes Briana Vazquez PA-C - 05/27/2017 1:40 PM CDT Historical: Chief Complaint Patient presents with ??? FOLLOW-UP,LAB ??? FOLLOW-UP,BP ??? Health Maintenance Communication ??? Health Maintanence Declined flu Hypertension Do you take any prescription medication for this condition? No, was taking medication then stopped Do you check home blood pressure readings? no readings taken How many times a week are you exercising? infrequent exercise Do you follow a low sodium diet? Regular diet - no sodium restriction Do you have any new shortness of breath or tightening or pressure in your chest with activity such as walking or climbing a flight of stairs? No Do you have shortness of breath when lying flat with one pillow? No Do you wake up at night with shortness of breath? No Do you have sleep apnea or has anyone told you that you snore loudly or stop breathing when you sleep? No BP Readings from Last 3 Encounters: 05/27/17 (!) 138/92 10/10/16 107/69 02/26/16 123/72 Also general med check Bipolar, depression, psychosis. Relatively stable but psychiatrist did just add wellbutrin. Follows with her monthly. Did have some blood work done per his psychiatrist not that long ago. Concerned about elevated lipids. Sounds like he may have been on a statin years ago. Would like me to take over prescribing his urology and dermatology meds. Overall issues are stable. I have personally reviewed the patient's allergies, medications and past medical history in detail and updated the patient record as necessary. Observed: BP (!) 138/92 Pulse 67 Temp 98.3 ??F (36.8 ??C) (Oral) Resp 14 Ht 6' 1 (1.854 m) Wt 225 lb 2 oz (102.1 kg) BMI 29.7 kg/m2 Physical Exam: General Appearance: alert, well appearing and in no apparent distress Heart: regular rate and rhythm and no murmurs, gallops or rubs Lungs: clear to ausculation and no wheezes, rales or rhonchi Psychiatric: affect/mood normal, cooperative, normal judgement/insight and memory intact Assessment/Plan: Essential hypertension (HRC) - NURSE APPOINTMENT ADULT/PEDS [TDD981] - lisinopril (ZESTRIL) 10 MG tablet; Take 1 Tab by mouth daily. - Potassium; Future - Creatinine / GFR; Future Hyperlipidemia with target LDL less than 130 (HRC) - atorvastatin (LIPITOR) 10 MG tablet; Take 1 Tab by mouth daily. - Lipid Panel and Direct LDL(If Needed); Future Screening for viral disease - Hepatitis C Antibody, with Reflex; Future - HIV 1/2 Ag/Ab 4th Generation; Future Chronic low back pain, unspecified back pain laterality, with sciatica presence unspecified (HRC) - gabapentin (NEURONTIN) 600 MG tablet; Take 1 Tab by mouth three times a day. Urinary urgency - tamsulosin (FLOMAX) 0.4 MG CAPS capsule; Take 1 Cap by mouth daily. - tolterodine (DETROL) 2 MG tablet; Take 2 Tabs by mouth daily. Encounter for screening colonoscopy - Colonoscopy-Preventative Seborrheic dermatitis Other orders - propranolol (INDERAL) 10 MG tablet; Take 10 mg by mouth three times a day. - QUEtiapine (SEROQUEL) 25 MG tablet; Take 25 mg by mouth three times a day. - Hep B, 20+ yrs - Zoster RZV (Shingrix) - buPROPion (WELLBUTRIN XL) 150 MG 24 hour release tablet; Take 150 mg by mouth daily. - desonide (DESOWEN) 0.05 % cream; Apply twice daily as needed BP borderline but hasn't been taking his lisinopril. Refilled today,nurse visit in a few weeks for recheck. Cardiovascular risk with today's BP reading is at 9.1%. We talked about whether to restart meds and decided to do so given his risk and even if his BP lowers he is still right on the border. Atorvastatin 10mg daily. Colonoscopy discussed and ordered Please see orders and patient instructions Briana Vazquez PA-C documented in this encounter Nursing Notes Hien Cruz LPN - 05/27/2017 1:40 PM CDT Complete documentation of the immunization administration, lot numbers, and contraindications are recorded in the Immunization Electronic Medical Record. The appropriate VIS sheets were given to the patient on 05/27/2017 . Hien Cruz LPN Hien Cruz LPN - 05/27/2017 1:40 PM CDT Complete documentation of the immunization administration, lot numbers, and contraindications are recorded in the Immunization Electronic Medical Record. The appropriate VIS sheets were given to the patient on 05/27/2017 . Hien Cruz LPN documented in this encounter Plan of Treatment Scheduled Referrals Name Type Priority Associated Diagnoses Order S soni NURSE APPOINTMENT Referral Routine Essential hypertension Ordered: 05/27/2017 ADULT/PEDS [OEI222] Colonoscopy-Preventativ Referral Routine Encounter for scr eening Ordered: 05/27/2017 e colonoscopy documented as of this encounter Results (ABNORMAL) Lipid Panel and Direct LDL(If Needed) (12/10/2017 10:23 AM CDT) [facility] Method Time Signature Hours Fasting 12 hours [...] 12/10/2017 3:48 PM C DT Performed at [facility], [address] [place] [id number] Briana Vazquez PA-C LAB_1 Performing Organization Address City/State/ZIP Code Phon e Number [facility] [phone] HIV 1/2 Ag/Ab 4th Generation (05/27/2017 2:42 PM CDT) [facility] Method Time Signature HIV 1/2 AG/AB Negative NEGNR [facility] 4thGEN (Non LABORATORIES Reactive) Comment: HIV-1 p24 Ag and HIV-1/HIV-2 Ab not detected. Specimen Anatomical Collection Method Collection Time Receive d Time (Source) Location / / Volume Laterality 05/27/2017 2:42 PM 8 2:44 CDT PM CDT Narrative [facility] - 05/27/2017 7:17 PM C DT Performed at [address] ??[address] Briana Vazquez PA-C LAB_1 Performing Organization Address [facility] Phon e Number [facility] [phone] Hepatitis C Antibody, with Reflex (05/27/2017 2:42 PM CDT) [facility] Method Time Signature Anti-HCV Negative (Non NEGNR [facility] Reactive) LABORATORIES Comment: Antibodies to HCV not detected. Does not exclude the possibility of exposure to HCV. Specimen Anatomical Collection Method Collection Time Receive d Time (Source) Location / / Volume Laterality 05/27/2017 2:42 PM 8 2:44 CDT PM CDT Narrative [facility] - 05/27/2017 6:44 PM C DT Performed at [address] ??[address] Briana Vazquez PA-C LAB_1 Performing Organization Address City/[facility] Phon e Number [facility] [phone] Creatinine / GFR (05/27/2017 2:42 PM CDT) [facility] Signature Creatinine 0.89 0.73 - [facility] 1.18 mg/dl [facility] GFR, Estimated >60 >60 [facility] ml/min/1.7 LAB[facility]ATORIES 3m2 GFR, Est., If >60 >60 [facility] Black ml/min/1.7 LABORATORIES 3m2 Specimen Anatomical Collection Method Collection Time Receive d Time (Source) Location / / Volume Laterality 05/27/2017 2:42 PM 8 2:44 CDT PM CDT Narrative [facility] - 05/27/2017 6:23 PM C DT Performed at [facility], [address] [place] [id number] Briana Vazquez PA-C LAB_1 Performing Organization Address [facility]/ZIP [facility] [place] Phon e Number [facility] [phone] Potassium (05/27/2017 2:42 PM CDT) athologist Signature Potassium 4.5 3.5 - 5.1 [facility] mmol/L Specimen Anatomical Collection Method Collection Time Receive d Time (Source) Location / / Volume Laterality 05/27/2017 2:42 PM 8 2:44 CDT PM CDT Narrative [facility] - 05/27/2017 6:23 PM C DT Performed at [address] ??[id number] Briana Vazquez PA-C LAB_1 Performing Organization Address City/[facility] Phon e Number [facility] [phone] documented in this encounter Visit Diagnoses Diagnosis Essential hypertension (HRC) - Primary Unspecified essential hypertension Hyperlipidemia with target LDL less than 130 (HRC) Other and unspecified hyperlipidemia Screening for viral disease Special screening examination for unspec ified viral disease Chronic low back pain, unspecified back pain laterality, with sciatica presence unspecified (HRC) Urinary urgency Urgency of urination Encounter for screening colonoscopy Special screening for malignant neoplasm s, colon Seborrheic dermatitis Seborrheic dermatitis, unspecified Bipolar affective disorder, remission st atus unspecified (HRC) Essential hypertension (HRC) Unspecified essential hypertension Screening for viral disease Special screening examination for unspec ified viral disease Hyperlipidemia with target LDL less than 130 (HRC) Other and unspecified hyperlipidemia documented in this encounter Care Teams Manufacturing Quality Technician Relationship Specialty Start Date End Date No Primary/Referring, Phy PCP - General 04/29/17 documented as of this encounter
--- OUTSIDE RECORDS SUMMARY | 2022-01-16 08:01 | XMS_ITS | Encounter Summary ---
:1965 Author Organization [facility] Address [address] [place] [address] Care Team Providers Name Role Phone No Primary/Referring, Phjoe Primary Care Provider Unavailable Reason for Visit Reason Comments Same Day/Next Day Appt. Encounter Details Date Type Department Care Team Description 05/25/2017 Telephone [facility] Unknown, Same Day /Next Day Appt. Practice Physician [address] [address] [place], [place] [phone] Social History Tobacco Use Types Packs/Day Years Used Date Smoking Tobacco: Former Cigarettes 0.5 3 Cigars Smokeless Tobacco: Never Comments: Occasional cigar Alcohol Use Standard Drinks/Week Comments Yes 0 (1 standard drink = 0.6 oz pure alcoho l) Rare Sex Assigned at Date Recorded Not on file documented as of this encounter Nursing Notes Yulissa Syed - 05/25/2017 11:32 AM CDT Spoke with pt. Informed currently no openings in clinic at this time. His appt scheduled with Atul Vazquez 05/27/17 would be best to keep. Pt expressed understanding. Declined additional concerns. No further action needed. Jennifer Byrne - 05/25/2017 11:13 AM CDT Appointments - Same Day / Future Patient would like appointment with: Any Provider Encounter Clinician: Physician Unknown, MD Patient requesting appointment for: Establishing care with new provider; and renew medications Wants/Needs to be seen within: 1 day(s) Pt has another appt tomorrow close to the clinic and if any cancellation of an appt after 1pm that works well with pt Is it okay to leave detailed message on your voicemail? Yes Jennifer Byrne Please route to: [facility] Video Tape Transferrer/General Pool documented in this encounter Plan of Treatment Not on filedocumented as of this encounter Visit Diagnoses Not on filedocumented in this encounter Care Teams Building Architect Relationship Specialty Start Date End Date No Primary/Referring, Phy PCP - General 04/29/17 documented as of this encounter
--- OUTSIDE RECORDS SUMMARY | 2022-01-16 08:01 | XMS_ITS | Encounter Summary ---
:1965 Author Organization [facility] Address [address] [place] [address] Care Team Providers Name Role Phone Briana Vazquez PA-C Primary Care Provider Reason for Visit Reason Comments Dental Hygiene cc skyler Encounter Details Date Type Department Care Team Description 01/31/2018 Office Visit [facility] (cc Dentistry [address] [facility] skyler) [address] [place] [address] [phone] Social History Tobacco Use Types Packs/Day Years [...] Sign Reading Time Taken Comments Blood Pressure 132/77 01/31/2018 9:12 AM DRAGGER OUT Pulse 57 01/31/2018 9:12 AM DRAGGER OUT Temperature - - Respiratory Rate - - Oxygen Saturation - - Inhaled Oxygen Concentration - - Weight - - Height - - Body Mass Index - - documented in this encounter Patient Instructions Patient Cherelle Parry - 01/31/2018 9:10 AM CST Your next recall is due: 01/31/2019 PERSONAL DENTAL RISK REPORT FOR GRACIE GUERRA Caries (Tooth Decay) Risk Periodontal (Gum Disease) Risk Oral Cancer Risk Your Risk Level Moderate High Moderate X Low This exam Your Risk Level Low High Moderate Low X This exam Your Risk Level Low Elevated Low X This exam Your Risk Factors One to two caries in the last 3 years How To Reduce Your Risk Daily rinsing of fluoride product purchased at [facility] pharmacy or other retail store. Rinse with fluoride rinse once or twice daily at times other than when brushing. Application of a concentrated fluoride product to the teeth in the clinic to assist in remineralization. Your Risk Factors T*096,,,1: How To Reduce Your Risk Your Risk Factors How To Reduce Your Risk CONGRATULATIONS. The results of your dental risk assessment indicate you are at low risk for gum disease. Making healthy life style choices including brushing twice a day; daily flossing and not using tobacco should help you maintain this low risk. CONGRATULATIONS. The results of your dental risk assessment indicate you are at low risk for oral cancer. Making healthy life style choices such as not using tobacco and low to moderate alcohol use should help you maintain this low risk. Tom, we look forward to seeing you at your next visit! Thank you for choosing [facility]. GER OUT documented in this encounter Progress Notes Rosa Childress, DDS - 01/31/2018 9:10 AM CST RECALL EXAM NOTE Gracie was seen today for Dental Hygiene (joseline holland) CHART REVIEW Reviewed (health history, dental history, periodontal charting and radiographs) with the patient. SOFT TISSUE, HEAD AND NECK EXAM Lips: normal Tongue: normal Palate: normal Throat: normal Floor of the mouth: normal Mucosa: normal Head and neck: normal TMD EVALUATION Palpation pain: none Joint sounds: none Pain with range of motion: none OCCLUSAL EXAMINATION Angle relationship: Right molar: class III Right cuspid: class I Left molar: class III Left cuspid:class I Maxillary midline: wnl Mandibular midline: wnl Overbite: 1 mm Overjet: 1 mm Crossbite: none Space loss: yes, diastima Crowding: not evident Occlusion: all teeth Attrition: excessive Erosion: absent Overall occlusal relationship: stable COSMETIC CONCERNS Patient's perception was acceptable. Dentist???s perception was acceptable. TREATMENT REVIEW AND FOLLOW-UP Discussed the dental findings, prognosis and treatment options with the patient and they expressed understanding. All questions were answered and informed consent was obtained. Recommended Recall Examination recommended in 6 months. Recall prophy recommended in 6 months. Planned Recall Examination planned in 6 months Recall prophy planned in 6 months Remineralization counseling: See hygiene note Discussed decay on # 21 and lost filling on # 11,Severe attrition and adv a guard lieutenant, Fractured tooth on # 30 and # 5 that have existing comp fillings adv to fill because that can cause decay Rosa Childress DDS 01/31/2018, 9:41 AM Next planned visit is Fillings . Completed dental procedures in this visit There are no completed dental procedures in this visit. --End of Note-- GER OUT Cherelle Lake - 01/31/2018 9:10 AM CST HYGIENE PROPHY NOTE COLLABORATIVE AGREEMENT Patient consents to have charting, radiographs and prophylaxis by the dental hygienist performed with the understanding that this care is not a substitute for an examination by a dentist. PRESENTATION Oral Hygiene: normal Plaque: generalized; light; supra-gingival Calculus:none Stain: none Bleeding: none Gingival tissue: normal Mucogingival concerns: absent ACTIVITIES Treatment included hand scale, essential selective polishing and flossed all contacts. PATIENT EDUCATION Discussion topics included caries risk assessment, fluoride rinse, oral cancer risk and periodontal risk. Next planned recall visit is: recall prophy with exam Cherelle Lake 01/31/2018, 10:08 AM Completed dental procedures in this visit ??? PROPHYLAXIS-ADULT RECALL ??? PERIODIC ORAL EVALUATION Chief Complaint: Treatment Options: ??? [id number] ??? TOPICAL FLUORIDE VARNISH --End of Note-- GER OUT documented in this encounter Plan of Treatment Scheduled Orders Name Type Priority Associated Order Schedule Diagnoses PROPHYLAXIS-ADULT Dental Procedures Routine 1 Occ urrences RECALL starting 2019 PERIODIC ORAL Dental Procedures Routine 1 Occurre nces EVALUATION starting 2019 TOPICAL FLUORIDE Dental Procedures Routine 1 Occu rrences VARNISH starting 2019 [id number] Dental Procedures Routine 1 Oc currences starting 2019 documented as of this encounter Procedures Procedure Name Priority Date/Time Associated Diagnosis Comme nts TOPICAL FLUORIDE Routine 01/31/2018 9:10 AM Routine health VARNISH DRAGGER OUT maintenance [id number] Routine 01/31/2018 9:10 AM Routine health DRAGGER OUT maintenance PERIODIC ORAL Routine 01/31/2018 9:10 AM Routine health EVALUATION DRAGGER OUT maintenance PROPHYLAXIS-ADULT Routine 01/31/2018 9:10 AM Routine health RECALL DRAGGER OUT maintenance documented in this encounter Visit Diagnoses Diagnosis Routine health maintenance - Primary Routine general medical examination at a health care facility documented in this encounter Care Teams Floor Specialist Relationship Specialty Start Date End Date Briana Vazquez PA-C PCP - General Physician Wearing Apparel Shaker 06/30/17 10/03/19 [address] [place] [address] documented as of this encounter
--- OUTSIDE RECORDS SUMMARY | 2022-01-16 08:01 | XMS_ITS | Encounter Summary ---
:1965 Author Organization [facility] Address [address], [place] [address] Care Team Providers Name Role Phone Briana Vazquez PA-C Primary Care Provider Reason for Visit Reason Onset Date Comments Refill 06/30/2017 omeprazole (PRILOSEC ) 20 MG capsule Encounter Details Date Type Department Care Team Description 06/30/2017 Refill [facility] No Refill ( omeprazole Practice Primary/Referring, (PRILOSEC) 20 MG capsule) [address] [place], [place] [address] Social History Tobacco Use Types Packs/Day Years Used Date Smoking Tobacco: Former Cigarettes 0.5 3 Cigars Smokeless Tobacco: Never Comments: Occasional cigar Alcohol Use Standard Drinks/Week Comments Yes 0 (1 standard drink = 0.6 oz pure alcoho l) Rare Sex Assigned at Date Recorded Not on file documented as of this encounter Nursing Notes Ashley Holly RN - 06/30/2017 4:58 PM CDT per standing order Ashley Holly RN Interface, Out Surescripts Prov Query - 06/30/2017 9:09 AM CDT omeprazole (PRILOSEC) 20 MG capsule Proton Pump Inhibitors -> The requested sig has changed from the last order. -> Refill x 12 months (until due for an office visit) -> Calculate quantity and refills manually. They could not be estimated due to missing or unreadable information. Last qualifying visit: 05/27/2017 (in Family Practice) Next scheduled visit: None Last ordered by INOCENCIO STRONG L: 03/09/2017 (113 days ago) QTY: 90, Refills: 0, Sig: take one capsule by mouth one time daily. take one hour before a meal. (changed) Powered by [employer], Reference: [id number], 06/30/2017 9:09:16 AM CDT, Hector: WYLIE RN ([id number]) documented in this encounter Plan of Treatment Not on filedocumented as of this encounter Visit Diagnoses Not on filedocumented in this encounter Care Teams Ambulatory Care Relationship Specialty Start Date End Date Briana Vazquez PA-C PCP - General Physician Quality Assurance Advisor 06/30/17 10/03/19 [address] [place] [address] documented as of this encounter
--- OUTSIDE RECORDS SUMMARY | 2022-01-16 08:01 | XMS_ITS | Encounter Summary ---
:1965 Author Organization [facility] Address [address] [address] Care Team Providers Name Role Phone No Primary/Referring, Phy Primary Care Provider Unavailable Encounter Details Date Type Department Care Team Description 05/03/2017 [place] [address] [place], [place] [address] Social History Tobacco Use [...] Priority Date/Time Associated Diagnosis Comme nts LIPID PANEL, FAST > Routine 05/03/2017 10:23 AM R esults for this 12 HOUR TREE SHEAR OPERATOR procedure are i n the results section. HGB A1C Routine 05/03/2017 10:23 AM Results for this TREE SHEAR OPERATOR procedure are i n the results section. GLUCOSE - FASTING > Routine 05/03/2017 10:23 AM R esults for this 8 HRS FASTING TREE SHEAR OPERATOR procedure are in the results section. documented in this encounter Results (ABNORMAL) Lipid Panel, Fast > 12 Hour (05/03/2017 10:23 AM TREE SHEAR OPERATOR) [facility] Method Time Signature Hours Fasting 12 hours [facility] Cholesterol 200 (H) 0 - 199 [facility] Triglyceride 240 (H) 0 - 149 [facility] HDL 28 (L) >40 mg/dl [facility] LDL, Calc. 124 0 - 129 [facility] Non HDL Chol, 172 (H) 0 - 159 [facility] Specimen Anatomical Collection Method Collection Time Receive d Time (Source) Location / / Volume Laterality 05/03/2017 10:23 05/03/2017 AM TREE SHEAR OPERATOR 10:57 AM TREE SHEAR OPERATOR Narrative [facility] - 05/03/2017 3:[address] Performed at [facility], [address] [place] [address] ??[phone] Coretta Hawkins APRN, CNP LAB_1 Performing Organization Address [facility] Phon e Number [facility] [phone] Glucose - Fasting > 8 Hrs Fasting (05/03/2017 10:23 AM TREE SHEAR OPERATOR) P athologist Signature Hours Fasting 12 hours [facility] Glucose 95 70 - 100 [facility] Specimen Anatomical Collection Method Collection Time Receive d Time (Source) Location / / Volume Laterality 05/03/2017 10:23 05/03/2017 AM TREE SHEAR OPERATOR 10:57 AM TREE SHEAR OPERATOR Narrative [facility] - 05/03/2017 3:[address] Performed at [facility], [address] [place] [address] ??[phone] Coretta Hawkins APRN, CNP LAB_1 Performing Organization Address [facility] Phon e Number [facility] [phone] Hgb A1c (05/03/2017 10:23 AM TREE SHEAR OPERATOR) P athologist Signature Hgb A1c 4.8 4.3 - 5.6 % [facility] Specimen Anatomical Collection Method Collection Time Receive d Time (Source) Location / / Volume Laterality 05/03/2017 10:23 05/03/2017 AM TREE SHEAR OPERATOR 10:57 AM TREE SHEAR OPERATOR Narrative [facility] - 05/03/2017 4:[address] Performed at [address] ??[phone] Coretta Hawkins APRN, CNP LAB_1 Performing Organization Address [facility] Phon e Number [facility] [phone] documented in this encounter Visit Diagnoses Not on filedocumented in this encounter Care Teams Operation Manager Relationship Specialty Start Date End Date No Primary/Referring, Phy PCP - General 04/29/17 documented as of this encounter
--- OUTSIDE RECORDS SUMMARY | 2022-01-16 08:01 | XMS_ITS | Encounter Summary ---
:1965 Author Organization [facility] Address [address] [place] [address] Care Team Providers Name Role Phone Briana Vazquez PA-C Primary Care Provider Reason for Visit Reason Comments Problem Focused Exam Lost filling Encounter Details Date Type Department Care Team Description 12/09/2017 Office Visit [facility] Rosa Childress P roblem Focused Exam Dentistry DDS (Lost filling) [address] [place] [id number] [phone] Social History Tobacco Use Types Packs/Day Years Used Date Smoking Tobacco: Former Cigarettes 0.5 3 Cigars Smokeless Tobacco: Never Comments: Occasional cigar Alcohol Use Standard Drinks/Week Comments Yes 0 (1 standard drink = 0.6 oz pure alcoho l) Rare Sex Assigned at Date Recorded Not on file documented as of this encounter Patient Instructions Patient InstructionsRosa Childress, DDS - 12/09/2017 1:50 PM CDT What are your post-op instructions following a silver filling procedure? We have just placed some silver amalgam restorations in your teeth. This high-quality material should provide you with years of service. However, you should be aware of the following information about your new restorations: Chewing Amalgam restorations do not have their maximum strength for 24 hours. Chew only soft foods on the new restorations until that time. Sensitivity Metal conducts heat and cold faster than tooth structure. Therefore, you may experience mild sensitivity to hot and cold for a few days. This sensitivity should disappear soon. If it does not do so, please contact us. Adv. Ibuprofen or Tylenol OTC before the numbing wears off. Recalls Visit us a regular six-month recall periods. Often, problems that are developing around the restorations can be found at an early stage and corrected easily, while waiting for a longer time may requireredoing the entire voodoo. We will contact you when it is time for your recall. The Future Small silver amalgam restorations will serve for many years in your mouth. However, large silver amalgam restorations may break, or the tooth structure around them may break in the future. In this event, the involved tooth or teeth will require a crown (cap) for optimum strength. Aggressive Chewing Do not chew ice or other very hard objects. Avoid chewing very sticky hard tack candy because it can remove restorations. Problems If one or more of the following conditions occur, contact us immediately to avoid further problems: A feeling of movement or looseness on the voodoo. Sensitivity to sweet foods. A peculiar taste from the voodoo site. Breakage of a piece of material from the voodoo. We have done our best to provide you with the finest quality oral restorations available today. However, as with a fine automobile or watch, only your continuing care and concern can assure optimum service. documented in this encounter Progress Notes Rosa Childress DDS - 12/09/2017 1:50 PM CDT DENTAL VISIT NOTE Nicanor (52 y.o.) was seen today for No chief complaint on file. S: Lower left first molar part of filling came out. Feel the tooth when eating. Not sesitive to hot or cold O: Fractured filling on # 19 DO amalgam, no pain the filling is wedged in but is trapping food . A: Fractured filling # 19 P: Discussed with pt to re do the filing/ [place], Pt gave consent for a filling recommended amalgam fill will stay better but the best outcome will be with crown Chart review Reviewed health history, dental history, problem list, periodontal charting and radiographs with thepatient. Treatment discussion Discussed the dental findings, prognosis and treatment options with the patient. All questions were answered and informed consent was obtained. Procedures performed at this visit ANESTHESIA Topical with 20% benzocaine 1.0 carpules 4% septocaine with 1:100,000 epinephrine was administered with ANANTH in #19. There were no adverse side effects observed. Anesthesia delivered by Rosa Childress DDS AMALGAM JAINISM Prepared #19 with complete caries removal and complete removal of the existing voodoo Isolation with high speed suction, cotton rolls and cheek guard Used desensitizer liner/varnish/base Microprime Bonding none Preparation filled with amalgam Occlusion was verified Patient was advised of normal post-operative instructions, potential for post- operative sensitivity,potential need for additional treatment because of proximity to the pulp and the need to exercise care because of the risk of fracture Next visit Next planned visit is Recall . Care was assisted by Comfort Childress DDS 12/09/2017, 2:58 PM Completed dental procedures in this visit ??? LIMITED ORAL EVALUATION ??? [id number] ??? 19 AMALGAM-3 SURFACE --End of Note-- documented in this encounter Plan of Treatment Not on filedocumented as of this encounter Procedures Procedure Name Priority Date/Time Associated Diagnosis Comme nts 19 AMALGAM-3 Routine 12/09/2017 2:59 PM CDT Defective dent al SURFACE voodoo 8 EXISTING ROOT CANAL Routine 03/20/2009 12:00 AM TREATMENT BASKETBALL PLAYER 6 EXISTING BRIDGE - Routine 03/20/2009 12:00 AM PFM BASKETBALL PLAYER 7 EXISTING BRIDGE - Routine 03/20/2009 12:00 AM PFM BASKETBALL PLAYER 8 EXISTING BRIDGE - Routine 03/20/2009 12:00 AM PFM BASKETBALL PLAYER 28 EXISTING PFM CROWN Routine 03/20/2009 12:00 AM BASKETBALL PLAYER 30 MOD EXISTING Routine 03/20/2009 12:00 AM COMPOSITE FILLING BASKETBALL PLAYER 11 F EXISTING Routine 03/20/2009 12:00 AM COMPOSITE FILLING BASKETBALL PLAYER 5 MOD EXISTING Routine 03/20/2009 12:00 AM COMPOSITE FILLING BASKETBALL PLAYER 20 O EXISTING Routine 03/20/2009 12:00 AM COMPOSITE FILLING BASKETBALL PLAYER 9 F EXISTING COMPOSITE Routine 03/20/2009 12:00 AM FILLING BASKETBALL PLAYER 21 MB EXISTING Routine 03/20/2009 12:00 AM COMPOSITE FILLING BASKETBALL PLAYER 29 MO EXISTING Routine 03/20/2009 12:00 AM COMPOSITE FILLING BASKETBALL PLAYER 13 O EXISTING AMALGAM Routine 03/20/2009 12:00 AM FILLING BASKETBALL PLAYER 4 L EXISTING AMALGAM Routine 03/20/2009 12:00 AM FILLING BASKETBALL PLAYER 12 O EXISTING AMALGAM Routine 03/20/2009 12:00 AM FILLING BASKETBALL PLAYER 14 L EXISTING AMALGAM Routine 03/20/2009 12:00 AM FILLING BASKETBALL PLAYER 14 O EXISTING AMALGAM Routine 03/20/2009 12:00 AM FILLING BASKETBALL PLAYER 18 O EXISTING AMALGAM Routine 03/20/2009 12:00 AM FILLING BASKETBALL PLAYER 19 O EXISTING AMALGAM Routine 03/20/2009 12:00 AM FILLING BASKETBALL PLAYER 31 O EXISTING AMALGAM Routine 03/20/2009 12:00 AM FILLING BASKETBALL PLAYER documented in this encounter Visit Diagnoses Diagnosis Defective dental voodoo - Primary Unspecified unsatisfactory voodoo o f tooth Localized gingival recession Gingival recession, localized Periodontitis, apical, suppurative Periapical abscess without sinus Fractured dental voodoo with loss o f material Fractured dental restorative material wi th loss of material Tooth fracture Open wound of tooth (broken) (fractured) (due to trauma), without mention of complication documented in this encounter Care Teams Health Concierge Relationship Specialty Start Date End Date Briana Vazquez PA-C PCP - General Physician Economic Development Coordinator 06/30/17 10/03/19 [address] [place] [address] documented as of this encounter
--- OUTSIDE RECORDS SUMMARY | 2022-01-16 08:01 | XMS_ITS | Encounter Summary ---
:1965 Author Organization [facility] Address [address], [place] [address] Care Team Providers Name Role Phone Briana Vazquez PA-C Primary Care Provider Reason for Visit Reason Comments IMMUNIZATIONS Encounter Details Date Type Department Care Team Description 12/10/2017 Nursing Visit [facility] ter for immunization Department (Primary Dx) [address] [place], [place] [address] Social History Tobacco Use Types Packs/Day Years Used Date Smoking Tobacco: Former Cigarettes 0.5 3 Cigars Smokeless Tobacco: Never Comments: Occasional cigar Alcohol Use Standard Drinks/Week Comments Yes 0 (1 standard drink = 0.6 oz pure alcoho l) Rare Sex Assigned at Date Recorded Not on file documented as of this encounter Progress Notes Kristin Minor LPN - 12/10/2017 10:46 AM CDT Nicanordarrell Alvarado here for injection(s). ordered per standing order . See orders. Contraindications and side effects discussed with patient patient verbalized understanding of risks, possible side effects, and benefits of the injection and gave permission to administer the stated immunization(s). No precautions or contraindications noted. Tolerated injection well. See immunization/injection report for administration documentation. Kristin Minor LPN documented in this encounter Plan of Treatment Not on filedocumented as of this encounter Visit Diagnoses Diagnosis Encounter for immunization - Primary Need for other specified prophylactic va ccination against single bacterial disease documented in this encounter Care Teams Retarder Operator Relationship Specialty Start Date End Date Briana Vazquez PA-C PCP - General Physician Roving Winder 06/30/17 10/03/19 [address] [place] [address] documented as of this encounter
--- OUTSIDE RECORDS SUMMARY | 2022-01-16 08:01 | XMS_ITS | Encounter Summary ---
:1965 Author Organization [facility] Address [address], [place] [address] Care Team Providers Name Role Phone Briana Vazquez PA-C Primary Care Provider Reason for Visit Reason Onset Date Comments ERRONEOUS ENTRY 07/01/2018 Encounter Details Date Type Department Care Team Description 06/30/2018 Notes/Orders [facility], ERRONEOUS ENTRY Laboratory Coretta Baugh APRN, (Primary Dx) [address] [place], [place] [address] [phone] [place] [address] Social History Tobacco Use Types Packs/Day Years Used Date Smoking Tobacco: Former Cigarettes 0.5 3 Cigars Smokeless Tobacco: Never Comments: Occasional cigar Alcohol Use Standard Drinks/Week Comments Yes 0 (1 standard drink = 0.6 oz pure alcoho l) Rare Sex Assigned at Date Recorded Not on file documented as of this encounter Progress Notes Jaqui Alejandre - 06/30/2018 12:18 PM CDT This encounter is an erroneous entry. Please disregard. documented in this encounter Plan of Treatment Not on filedocumented as of this encounter Visit Diagnoses Diagnosis ERRONEOUS ENTRY - Primary documented in this encounter Care Teams Lead Shipper Relationship Specialty Start Date End Date Briana Vazquez PA-C PCP - General Physician Cyanide Pot Hardener 06/30/17 10/03/19 [address] [place] [address] documented as of this encounter
--- OUTSIDE RECORDS SUMMARY | 2022-01-16 08:01 | XMS_ITS | Encounter Summary ---
:1965 Author Organization [employer] Address [address] [address] Care Team Providers Name Role Phone Briana Vazquez PA-C Primary Care Provider Encounter Details Date Type Department Care Team Description 06/21/2018 Lab Visit [facility] High risk medication use (Pr imary Dx); [address] [facility] Screening, lipid [place], [place] [address] Social History Tobacco Use [...] Diagnosis Comme nts LIPID PANEL AND Routine 06/21/2018 12:06 PM High risk medicati on Results for this DIRECT LDL(IF CDT use procedure are in NEEDED) Screening, lipid the results section. HGB A1C Routine 06/21/2018 12:06 PM High risk medication Results for this CDT use procedure are in Screening, lipid the results section. GLUCOSE Routine 06/21/2018 12:06 PM High risk medication Results for this CDT use procedure are in Screening, lipid the results section. documented in this encounter Results (ABNORMAL) Glucose (06/21/2018 12:06 PM CDT) P athologist Signature Glucose 122 (H) 70 - 100 06/21/2018 [employer] mg/dL 3:10 PM CDT CENTRAL LAB Specimen Anatomical Collection Method / Collection Time Recei lavonne Time (Source) Location / Volume Laterality Blood Venipuncture / 06/21/2018 12:06 9 Unknown PM CDT 12:06 PM CDT Coretta Hawkins APRN, CNP LAB_1 Performing Organization Address [facility] Phon e Number [employer] CENTRAL LAB [address] [address] (ABNORMAL) Lipid Panel and Direct LDL(If Needed) (06/21/2018 12:06 PM CDT) [facility] [employer] Method Time Signature Cholesterol 185 0 - 199 06/21/2018 [facility] mg/dL 3:10 PM CDT CENTRAL LAB Triglyceride 220 (H) <=149 06/21/2018 [facility] mg/dL 3:10 PM CDT CENTRAL LAB HDL Cholesterol 32 (L) >=40 06/21/2018 [facility] mg/dL 3:10 PM CDT CENTRAL LAB LDL, Calculated 109 <130 06/21/2018 [facility] mg/dL 3:10 PM CDT CENTRAL LAB Non HDL Chol, 153 <=159 06/21/2018 [facility] Calculated mg/dL 3:10 PM CDT CENTRAL LAB Cholesterol/HDL 5.8 06/21/2018 [facility] Ratio 3:10 PM CDT CENTRAL LAB Specimen Anatomical Collection Method / Collection Time Recei lavonne Time (Source) Location / Volume Laterality Blood Venipuncture / 06/21/2018 12:06 9 Unknown PM CDT 12:06 PM CDT Coretta Hawkins APRN, CNP LAB_1 Performing Organization Address [facility] Phon e Number [facility] CENTRAL LAB [address] [address] Hgb A1C (06/21/2018 12:06 PM CDT) [facility] [employer] Method Time Signature Hemoglobin A1C 5.0 <=5.6 % 06/21/2018 [facility] 3:25 PM CDT CENTRAL LAB Specimen Anatomical Collection Method / Collection Time Recei lavonne Time (Source) Location / Volume Laterality Blood Venipuncture / 06/21/2018 12:06 9 Unknown PM CDT 12:06 PM CDT Coretta Hawkins APRN, JENNY LAB_1 Performing Organization Address City/State/ZIP Code Phon e Number [facility] [address] [address] documented in this encounter Visit Diagnoses Diagnosis High risk medication use - Primary Encounter for long-term (current) use of other medications Screening, lipid Screening for lipoid disorders documented in this encounter Care Teams Social Insurance Adviser Relationship Specialty Start Date End Date Briana Vazquez PA-C PCP - General Physician Crime Lab Analyst 06/30/17 10/03/19 [address] [place] [address] documented as of this encounter
--- OUTSIDE RECORDS SUMMARY | 2022-01-16 08:02 | XMS_ITS | Encounter Summary ---
:1965 Author Organization [facility] Address [address], [place] [address] Care Team Providers Name Role Phone Yaneth Strong MD Primary Care Provider Reason for Visit Reason Comments Refill tolterodine (DETROL) 2 MG ta blet [Pharmacy Med Name: Tolterodine Tartrate Oral Tablet 2 MG] Encounter Details Date Type Department Care Team Description 03/05/2017 Refill [facility] Yaneth Strong R effam (tolterodine Practice (DETROL) 2 MG tablet [id number] [facility] [address] [facility] [Pharmacy Med Name: [place], [place] [address] [place], [place] Tolterodine Tartrate [phone] Oral Tablet 2 MG]) [phone] (Wo rk) Social History Tobacco Use Types Packs/Day Years Used Date Smoking Tobacco: Former Cigarettes 0.5 3 Cigars Smokeless Tobacco: Never Comments: Occasional cigar Alcohol Use Standard Drinks/Week Comments Yes 0 (1 standard drink = 0.6 oz pure alcoho l) Rare Sex Assigned at Date Recorded Not on file documented as of this encounter Nursing Notes Ashley Holly RN - 03/09/2017 11:48 AM CST per standing order Ashley Holly RN OYEE BENEFITS ADMINISTRATOR Interface, Out Surescripts Prov Query - 03/05/2017 10:32 AM CST tolterodine (DETROL) 2 MG tablet [Pharmacy Med Name: Tolterodine Tartrate Oral Tablet 2 MG] Urology - Urinary Incontinence -> The requested sig has changed from the last order. -> Refill x 3 months (courtesy refill. overdue for an office visit) Last qualifying visit: 01/31/2016 (in Family Practice) Next scheduled visit: None Last ordered by YANETH STRONG: 07/29/2016 (219 days ago) QTY: 180, Refills: 1, Sig: take one tablet by mouth twice daily (changed) Powered by [employer], Reference: [id number], 03/05/2017 10:32:44 AM Hector CENTENO: ROB REFFAM PUCKETT ([id number]) OYEE BENEFITS ADMINISTRATOR documented in this encounter Plan of Treatment Not on filedocumented as of this encounter Visit Diagnoses Not on filedocumented in this encounter Care Teams Webbing Supervisor Relationship Specialty Start Date End Date Yaneth Strong MD PCP - General 08/01/09 04/28/17 [address] [place] [address] documented as of this encounter
--- OUTSIDE RECORDS SUMMARY | 2022-01-16 08:02 | XMS_ITS | Encounter Summary ---
:1965 Author Organization [facility] Address [address], [place] [address] Care Team Providers Name Role Phone Briana Vazquez PA-C Primary Care Provider Reason for Referral Consult/Transfer Care (Routine) - Closed Specialty Diagnoses / Procedures Referred By Contact Refer red To Contact Diagnoses Encounter for long-term (current) [place] [address] [place], [place] [address] Referral ID Status Reason Start Date Expiration Date Visits Requ ested Visits Authorized [id number] Closed 12/30/2016 01/30/2017 1 1 Scheduling Instructions Your provider has recommended you to fol low up with your Primary Dairy Manufacturing Technologist. If you are currently seeing a [facility] provider for your primary care needs, a supervisor hand workers will contact you within the vt xt 3 business days to assist you in setting up this appointment. To schedule your ap pointment you may call [phone]. We suggest you call your testbirds about your coverage and benefits for this service. Encounter Details Date Type Department Care Team Description 12/29/2016 Refill Order [facility] [place] Practice [address] [facility] [address] [place] [address] [place] [id number] 24 [phone] Social History Tobacco Use Types Packs/Day Years Used Date Smoking Tobacco: Former Cigarettes 0.5 3 Cigars Smokeless Tobacco: Never Comments: Occasional cigar Alcohol Use Standard Drinks/Week Comments Yes 0 (1 standard drink = 0.6 oz pure alcoho l) Rare Sex Assigned at Date Recorded Not on file documented as of this encounter Nursing Notes Page Luther CMA - 12/30/2016 3:49 PM CDT Reviewed and pt notified. Page Luther CMA 12/30/2016, 3:49 PM documented in this encounter Plan of Treatment Scheduled Referrals Name Type Priority Associated Diagnoses Order S soni Primary Care Follow-Up Referral Routine Encounter for long -term Ordered: 12/30/2016 (current) use of medications documented as of this encounter Visit Diagnoses Diagnosis Encounter for long-term (current) use of medications - Primary Encounter for long-term (current) use of other medications documented in this encounter Care Teams Lens Silverer Relationship Specialty Start Date End Date Briana Vazquez PA-C PCP - General Physician Supervisor Belt And Link Assembly 11/29/19 [address] [place] [address] documented as of this encounter
--- OUTSIDE RECORDS SUMMARY | 2022-01-16 08:02 | XMS_ITS | Encounter Summary ---
:1965 Author Organization [facility] Address [address] [place] [address] Care Team Providers Name Role Phone Yaneth Dodd MD Primary Care Provider Reason for Visit Reason Comments Medication Questions Encounter Details Date Type Department Care Team Description 01/28/2016 Telephone [facility] Yaneth Dodd M edication Questions Practice [address] [place] [address] [place], [place] [phone] (Wo rk) Social History Tobacco Use Types Packs/Day Years Used Date Smoking Tobacco: Former Cigarettes 0.5 3 Cigars Smokeless Tobacco: Never Comments: Occasional cigar Alcohol Use Standard Drinks/Week Comments Yes 0 (1 standard drink = 0.6 oz pure alcoho l) Rare Sex Assigned at Date Recorded Not on file documented as of this encounter Nursing Notes Renetta Perales CMA - 01/28/2016 3:04 PM CST Spoke with pt. Pt stated that he has not taken any benzos and is confused as to why this is showing up positive at work. Pt does have appt scheduled for Wednesday with Yaneth Dodd MD. Renetta Perales CMA 01/28/2016, 3:05 PM STRIAL GAS FITTER Yaneth Dodd MD - 01/28/2016 2:42 PM CST Those drugs should not cause a positive benzo result. Would recommend he have a tox screen repeated through our lab as he had one in September and it was negative. STRIAL GAS FITTER Kristin Saavedra - 01/28/2016 12:50 PM CST Pt called is also on gabapenton and seroquel as well as the other in chart STRIAL GAS FITTER Inocencia Cherry - 01/28/2016 12:31 PM CST Patient can up positive for benzoles on drug test at work. Patient would like to know if his medications would be causing the drug test to come up positive. STRIAL GAS FITTER documented in this encounter Plan of Treatment Not on filedocumented as of this encounter Visit Diagnoses Not on filedocumented in this encounter Care Teams Ict Business Development Manager Relationship Specialty Start Date End Date Yaneth Dodd MD PCP - General 08/01/09 04/28/17 [address] [place] [address] documented as of this encounter
--- OUTSIDE RECORDS SUMMARY | 2022-01-16 08:02 | XMS_ITS | Encounter Summary ---
:1965 Author Organization [facility] Address [address] [place] [address] Care Team Providers Name Role Phone Yaneth Dodd MD Primary Care Provider Reason for Visit Reason Comments Late Refill - Antidepressant Medication Encounter Details Date Type Department Care Team Description 12/31/2015 Telephone [facility] S[facility]chez Grayson Late Refill - [facility] SU Mtz Antidepressant [address] [place] [address] Social History Tobacco Use Types Packs/Day Years Used Date Smoking Tobacco: Former Cigarettes 0.5 3 Cigars Smokeless Tobacco: Never Comments: Occasional cigar Alcohol Use Standard Drinks/Week Comments Yes 0 (1 standard drink = 0.6 oz pure alcoho l) Rare Sex Assigned at Date Recorded Not on file documented as of this encounter Nursing Notes Sánchez Grayson LADC - 12/31/2015 4:18 PM CDT Contacted patient due to late refill of antidepressant medication (at least 3-5 days past expected fill date). Patient reports that he is still taking this medication and agrees to refill it. This medication was initially prescribed by an [facility] provider. This CM encouraged patient to request his primary care provider continue to provide prescription for SERTRALINE HCL 100 MG TABLET ii po qd. PHQ-9 05/12/2012 PHQ9 Score - Smartform 1 SU Zambrano 12/31/2015, 4:18 PM documented in this encounter Plan of Treatment Not on filedocumented as of this encounter Visit Diagnoses Not on filedocumented in this encounter Care Teams Broke Worker Relationship Specialty Start Date End Date Yaneth Dodd MD PCP - General 08/01/09 04/28/17 [address] [place] [address] documented as of this encounter
--- OUTSIDE RECORDS SUMMARY | 2022-01-16 08:02 | XMS_ITS | Encounter Summary ---
:1965 Author Organization [facility] Address [address], [place] [address] Care Team Providers Name Role Phone Yaneth Dodd MD Primary Care Provider Encounter Details Date Type Department Care Team Description 01/31/2016 Lab Visit [facility] Abnormal drug screen [address] [place], [place] [address] Social History Tobacco Use Types Packs/Day Years Used Date Smoking Tobacco: Former Cigarettes 0.5 3 Cigars Smokeless Tobacco: Never Comments: Occasional cigar Alcohol Use Standard Drinks/Week Comments Yes 0 (1 standard drink = 0.6 oz pure alcoho l) Rare Sex Assigned at Date Recorded Not on file documented as of this encounter Progress Notes Yaneth Dodd MD - 02/04/2016 12:30 PM ANALYSIS LEAD Quick Note: Call pt and let him know his urine drug screen showed no benzodiazepines in his system. We can print this up for him and give him a copy if needed. YSIS LEAD documented in this encounter Plan of Treatment Not on filedocumented as of this encounter Procedures Procedure Name Priority Date/Time Associated Comments Diagnosis URINE DRUG Routine 01/31/2016 10:05 Abnormal drug Results fo r this COMPREHENSIVE PANEL AM ANALYSIS LEAD screen procedur e are in (WITH CONFIRMATION) the resu lts section. documented in this encounter Results (ABNORMAL) Urine Drug Comprehensive Panel (with Confirmation) (01/31/2016 10:05 AM ANALYSIS LEAD) Component Value Ref Test Analysis Performed At [facility] Method Time Signature Amphetamines Negative NEG [facility] Barbiturates Negative NEG [facility] Benzodiazepines Negative NEG [facility] Cocaine Metabolite Negative NEG [facility] Methadone Negative NEG [facility] Opiates Negative NEG [facility] Oxycodone, Urine Negative NEG [facility] P.C.P. Negative NEG [facility] THC(Marijuana) Negative NEG [facility] Acetaminophen, UR Negative NEG [facility] Amitriptyline, UR Negative NEG [facility] Amphetamine, UR Negative NEG [facility] Bupropion, UR Negative NEG [facility] Butalbital, UR Negative NEG [facility] Caffeine, UR Confirmed NEG [facility] (A[facility] Carbamazepine, UR Negative NEG [facility] Carisoprodol, UR Negative NEG [facility] Chlorpheniramine, Negative NEG [facility] UR [facility] Citalopram, UR Negative NEG [facility] Clomipramine, UR Negative NEG [facility] Cocaine, UR Negative NEG [facility] Cocaine Metab, UR Negative NEG [facility] Cotinine, UR Negative NEG [facility] Cyclobenzaprine, Negative NEG [facility] UR [facility] Desipramine, UR Negative NEG [facility] Dextromethorphan, Negative NEG [facility] UR [facility] Diphenhydramine, Confirmed NEG [facility] Positive (A) [facility] Doxepin, UR Negative NEG [facility] Doxylamine, UR Negative NEG [facility] Ecstasy, UR Negative NEG [facility] Ecstasy Metab, UR Negative NEG [facility] Ephedrine, UR Negative NEG [facility] Fentanyl, UR Negative NEG [facility] Fluoxetine, UR Negative NEG [facility] Ibuprofen, UR Negative NEG [facility] Imipramine, UR Negative NEG [facility] Ketamine, UR Negative NEG [facility] Lidocaine, UR Negative NEG [facility] Meprobamate, UR Negative NEG [facility] Methadone, UR Negative NEG [facility] Methadone Metab, Negative NEG [facility] Methamphetamine, Negative NEG [facility] UR [facility] Methylphenidate, Negative NEG [facility] Mirtazapine, UR Negative NEG [facility] Nicotine, UR Negative NEG [facility] Nordoxepin, UR Negative NEG [facility] Nortriptyline, UR Negative NEG [facility] Paroxetine, UR Negative NEG [facility] Phencyclidine, UR Negative NEG [facility] Phenmetrazine, UR Negative NEG [facility] Phenobarbital, UR Negative NEG [facility] Phentermine, UR Negative NEG [facility] Phenytoin, UR Negative NEG [facility] Primidone, UR Negative NEG [facility] Pseudoephedrine, Negative NEG [facility] Quetiapine, UR Confirmed NEG [facility] Sertraline, UR Confirmed NEG [facility] THC Metab, UR Negative NEG [facility] Tramadol, UR Negative NEG [facility] Tramadol Metab, UR Negative NEG [facility] Trazodone, UR Negative NEG [facility] Venlafaxine, UR Negative NEG [facility] Venlafaxine Metab, Negative NEG [facility] Zolpidem, UR Negative NEG [facility] Creatinine 112.0 mg/dL [facility] Specimen Anatomical Collection Method Collection Time Receive d Time (Source) Location / / Volume Laterality Urine specimen 01/31/2016 10:05 6 (specimen) AM ANALYSIS LEAD 10:07 AM ANALYSIS LEAD Narrative [facility] - 02/04/2016 12:05 PM ANALYSIS LEAD Performed at [facility] , [address] [place] [address] Yaneth Dodd MD LAB_1 Performing Organization Address City/State/[facility] Code Phon e Number [facility] [phone] documented in this encounter Visit Diagnoses Diagnosis Abnormal drug screen Nonspecific abnormal toxicological findi ngs documented in this encounter Care Teams Pathology Laboratory Director Relationship Specialty Start Date End Date Yaneth Dodd MD PCP - General 08/01/09 04/28/17 [address] [place] [address] documented as of this encounter
--- OUTSIDE RECORDS SUMMARY | 2022-01-16 08:02 | XMS_ITS | Encounter Summary ---
:1965 Author Organization Counts include 234 beds at the [facility] Address [address] [place] [address] Care Team Providers Name Role Phone Yaneth Dodd MD Primary Care Provider Reason for Visit Reason Comments Refill lisinopril (ZESTRIL) 10 MG t ablet [Pharmacy Med Name: Lisinopril Oral Tablet 10 MG] Encounter Details Date Type Department Care Team Description 04/03/[address] [facility] Janet Urena, Re fill (lisinopril Practice CLAY TEMPERER, PEELER OPERATOR (ZESTRIL) 10 MG tablet [id number] [facility] [address] [Pharmacy Med Name: [place], [place] [address] [place], [place] Lisinopril Oral Tablet [phone] 10 MG]) Social History Tobacco Use Types Packs/Day Years Used Date Smoking Tobacco: Former Cigarettes 0.5 3 Cigars Smokeless Tobacco: Never Comments: Occasional cigar Alcohol Use Standard Drinks/Week Comments Yes 0 (1 standard drink = 0.6 oz pure alcoho l) Rare Sex Assigned at Date Recorded Not on file documented as of this encounter Nursing Notes Malia Correia RN - 04/06/2016 8:09 AM CST per standing order Malia Correia RN IMEN TRANSPORTER Interface, Out Surescripts Prov Query - 04/03/2016 5:55 PM CST lisinopril (ZESTRIL) 10 MG tablet [Pharmacy Med Name: Lisinopril Oral Tablet 10 MG] Protocol: Cardiovascular - Rylan Inhibitors -> Refill x 6 months (until due for a(n) Cr check and K check) Last qualifying visit: 01/31/2016 (in Family Practice) Next scheduled visit: None Last ordered by : 09/18/2015 (198 days ago) QTY: 30, Refills: 0, Sig: take 1 tab by mouth daily. indications: high blood pressure (changed but equivalent) SBP: 118 mm Hg on 01/31/2016 DBP: 64 mm Hg on 01/31/2016 Cr: 0.75 mg/dL on 09/10/2015 K: 3.9 mEq/L on 09/10/2015 Powered by [employer], Reference: [id number], 04/03/2016 5:55:30 PM JACOBO, Pool: FP REFILL RN ([id number]) IMEN TRANSPORTER documented in this encounter Plan of Treatment Not on filedocumented as of this encounter Visit Diagnoses Not on filedocumented in this encounter Care Teams Android Ios Developer Relationship Specialty Start Date End Date Yaneth Dodd MD PCP - General 08/01/09 04/28/17 [address] [place] [address] documented as of this encounter
--- OUTSIDE RECORDS SUMMARY | 2022-01-16 08:02 | XMS_ITS | Encounter Summary ---
:1965 Author Organization [facility] Address [address] [place] [address] Care Team Providers Name Role Phone Yaneth Dodd MD Primary Care Provider Reason for Visit Reason Comments Refill diclofenac (VOLTAREN) 50 MG enteric coated tablet [Pharmacy Med Name: Diclofenac Sodium Oral Table t Delayed Release 50 MG] Encounter Details Date Type Department Care Team Description 03/05/2017 Refill [facility] Yaneth Dodd R efill (diclofenac Practice (VOLTAREN) 50 MG enteric [id number] coated tablet [Pharmacy [place], [place] [address] [place], [place] Med Name: Diclofenac [phone] [id number] Sodium Oral Tablet [phone] (Wo rk) Delayed Release 50 MG]) Social History Tobacco Use Types Packs/Day Years Used Date Smoking Tobacco: Former Cigarettes 0.5 3 Cigars Smokeless Tobacco: Never Comments: Occasional cigar Alcohol Use Standard Drinks/Week Comments Yes 0 (1 standard drink = 0.6 oz pure alcoho l) Rare Sex Assigned at Date Recorded Not on file documented as of this encounter Nursing Notes Kat Perales - 03/17/2017 2:24 PM CST Letter sent GER HEAVY DUTY Camilo Bullock MD - 03/17/2017 12:33 PM CST Please send letter informing patient that prescription was refilled, but that he is overdue for labsto monitor his blood pressure medication and needs to establish care with a new provider. GER HEAVY DUTY Inocencia Cherry - 03/17/2017 11:41 AM CST Medication Refill - Overdue Visit Called patient, was: Unable to reach patient 2nd call attempted. Clinician will need to review refill request. Inocencia Cherry Please route to: ([facility]) Care Team Pool/ (PN) Clinician no pcp will route to doc of day. GER HEAVY DUTY Inocencia Cherry - 03/11/2017 9:57 AM CST Medication Refill - Overdue Visit Called patient, was: Unable to reach patient 1st call attempted. Left message to call back. Inocencia Cherry GER HEAVY DUTY Jessica Baez RN - 03/09/2017 11:30 AM CST Further Assistance Needed on Refill from Threat Analyst Patient is overdue for Office visit and lab(s). Last qualifying visit: 01/31/2016 (in Family Practice) ? Next scheduled visit: None ? Last ordered: 09/18/2015 (534 days ago) QTY: 60, Refills: 0, Sig: take 1 tab by mouth two times aday. indications: backache (changed) ? Cr: 0.75 mg/dL on 09/10/2015 ?? HGB: 14.4 g/dL on 09/10/2015 Please call patient to schedule an Office Visit/labs and document using .RIAZ. After attemptingto schedule patient: Please route to: Clinician/Care Team Hector Baez RN 03/09/2017, 11:30 AM GER HEAVY DUTY Interface, Out [employer] Query - 03/05/2017 10:32 AM CST diclofenac (VOLTAREN) 50 MG enteric coated tablet [Pharmacy Med Name: Diclofenac Sodium Oral Tablet Delayed Release 50 MG] NSAIDs -> The requested sig has changed from the last order. -> Cr and HGB are overdue (performed over 18 months ago, required every 12 months) Last qualifying visit: 01/31/2016 (in Family Practice) Next scheduled visit: None Last ordered: 09/18/2015 (534 days ago) QTY: 60, Refills: 0, Sig: take 1 tab by mouth two times a day. indications: backache (changed) Cr: 0.75 mg/dL on 09/10/2015 HGB: 14.4 g/dL on 09/10/2015 Powered by [employer], Reference: [id number], 03/05/2017 10:32:44 AM Hector CENTENO: WYLIE RN ([id number]) GER HEAVY DUTY documented in this encounter Plan of Treatment Not on filedocumented as of this encounter Visit Diagnoses Not on filedocumented in this encounter Care Teams Pharmacy Benefits Coordinator Relationship Specialty Start Date End Date Yaneth Dodd MD PCP - General 08/01/09 04/28/17 [address] [place] [address] documented as of this encounter
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
--- OUTSIDE RECORDS SUMMARY | 2022-01-16 08:02 | XMS_ITS | Encounter Summary ---
:1965 Author Organization [facility] Address [address], [place] [address] Care Team Providers Name Role Phone Yaneth Dodd MD Primary Care Provider Encounter Details Date Type Department Care Team Description 03/05/2017 Refill Order [facility] Chris Dodd MD [id number] [place] [address] [phone] Social History Tobacco Use Types Packs/Day Years Used Date Smoking Tobacco: Former Cigarettes 0.5 3 Cigars Smokeless Tobacco: Never Comments: Occasional cigar Alcohol Use Standard Drinks/Week Comments Yes 0 (1 standard drink = 0.6 oz pure alcoho l) Rare Sex Assigned at Date Recorded Not on file documented as of this encounter Nursing Notes Page Luther CMA - 03/05/2017 2:11 PM CST Reviewed and pt notified. Page Luther CMA 03/05/2017, 2:11 PM IC RELATIONS OFFICER Interface, Out Surescripts Prov Query - 03/05/2017 10:32 AM CST ORDER THE FOLLOWING: - CREATININE: Pended to encounter. - POTASSIUM: Pended to encounter. SCHEDULE THE FOLLOWING: - OFFICE VISIT BY: Now (Due as of 01/25/2017 for multiple medications including traZODone (DESYREL) 100 MG tablet) - CREATININE BY: Now (Due as of 09/04/2016 for lisinopril (ZESTRIL) 10 MG tablet) - POTASSIUM BY: Now (Due as of 09/04/2016 for lisinopril (ZESTRIL) 10 MG tablet) - LAST QUALIFYING VISIT IN FAMILY PRACTICE: 01/31/2016 - NEXT SCHEDULED VISIT: None - NEXT LAB APPOINTMENT: None We recently received a refill request on one of your medications. While reviewing your chart, we noticed that you are going to be due for lab work and a visit with your provider within the next 3 months for the following medication: LISINOPRIL (ZESTRIL) 10 MG TABLET You can schedule your appointment online at [facility] or by calling the appointment center at the phone number listed above. Thank you for choosing [facility]. Tanna Yen RN [facility] Nurses Powered by [employer], Reference: [id number], 03/05/2017 10:32:45 AM Hector CENTENO: ROB REFILL RN ([id number]) BO documented in this encounter Plan of Treatment Not on filedocumented as of this encounter Visit Diagnoses Diagnosis Encounter for long-term (current) use of medications - Primary Encounter for long-term (current) use of other medications documented in this encounter Care Teams Brown Sourer Relationship Specialty Start Date End Date Yaneth Dodd MD PCP - General 08/01/09 04/28/17 [address] [place] [address] documented as of this encounter
--- OUTSIDE RECORDS SUMMARY | 2022-01-16 08:02 | XMS_ITS | Encounter Summary ---
:1965 Author Organization [facility] Address [address], [place] [address] Care Team Providers Name Role Phone Yaneth Dodd MD Primary Care Provider Reason for Referral Consult/Transfer Care (Routine) - Closed Specialty Diagnoses / Procedures Referred By Contact [place]er [place] [address] [place], [place] [address] Referral ID Status Reason Start Date Expiration Date Visits Requ ested Visits Authorized [id number] Closed 01/31/2016 05/01/2017 1 1 Scheduling Instructions Your provider has [facility] an [facility]. You may call [phone] to schedule your appoi ntment. If you prefer, a central scheduler will contact you within the next 3 business d ays to assist you in setting up this appointment. We suggest you call your [facility] insurance company about your coverage and benefits for this appointment. UCT SALES ENGINEER Reason for Visit Reason Comments MEDICATION CHECK Encounter Details Date Type Department Care Team Description 01/31/[address] [facility] Yaneth Dodd rmal drug screen (Primary Dx); Criselda Crowe MD Urinary urgency [address] [facility] [address] [place] [address] [phone] Social History Tobacco Use Types Packs/Day Years [...] Sign Reading Time Taken Comments Blood Pressure 118/64 01/31/2016 9:43 AM PRODUCT SALES ENGINEER Pulse 81 01/31/2016 9:43 AM PRODUCT SALES ENGINEER Temperature - - Respiratory Rate 18 01/31/2016 9:43 AM PRODUCT SALES ENGINEER Oxygen Saturation - - Inhaled Oxygen Concentration - - Weight 93 kg (205 lb) 01/31/2016 9:43 AM PRODUCT SALES ENGINEER Height - - Body Mass Index 27.05 09/12/2015 5:43 PM CDT documented in this encounter Progress Notes Yaneth Dodd MD - 01/31/2016 12:14 PM CST Subjective: 50-year-old male comes in concerned about her recent drug test that was taken at work. He did a urine drug screen that came up positive for benzo diazepam. He absolutely denies using any type of benzodiazepine. When he had talked to me about this before, he did not tell me that he was on sertraline. We did not feel that the Seroquel or the gabapentin would cause this test to be positive. However, he brings in information that he has gotten over the Internet stating that Zoloft (sertraline) could cause a urine drug screen to show positive for benzodiazepines. He is definitely taking sertraline and has been regularly for quite some time. Because of this, I would like to repeat the drug screen here in our clinic. We will do that today. If the benzodiazepine is positive, I will talk with the lab at the hospital to see if they have heard any information on sertraline affecting this test. If it has, I will write a letter for the patient's work. In addition to this, he is concerned about urinary urgency. This seems to be getting worse. Wants toknow take any higher doses of Detrol. He is already taking 2 mg twice daily. At this point, I thinkthat he would be better off talking with urology to see what they would recommend. Objective:BP 118/64 mmHg Pulse 81 Resp 18 Wt 205 lb (92.987 kg) He appears well. I did not examine him further today. Assessment: Positive drop screen that may have been affected by his sertraline. Urinary urgency. Plan: As above. UCT SALES ENGINEER documented in this encounter Plan of Treatment Scheduled Referrals Name Type Priority Associated Diagnoses Order S [facility] Urology Consult-Adults Referral Routine Order ed: 01/31/2016 documented as of this encounter Results (ABNORMAL) Urine Drug Comprehensive Panel (with Confirmation) (01/31/2016 10:05 AM PRODUCT SALES ENGINEER) Component Value Ref Test Analysis Performed At [facility] gist Range Method Time Signature Amphetamines Negative NEG [facility] [...] Urine specimen 01/31/2016 10:05 6 (specimen) AM PRODUCT SALES ENGINEER 10:07 AM PRODUCT SALES ENGINEER Narrative [facility] - 02/04/2016 12:05 PM PRODUCT SALES ENGINEER Performed at [facility] , [address] [place] [address] Yaneth Dodd MD LAB_1 Performing Organization Address City/State/[facility] Code Phon e Number [facility] [phone] documented in this encounter Visit Diagnoses Diagnosis Abnormal drug screen - Primary Nonspecific abnormal toxicological findi ngs Urinary urgency Urgency of urination Abnormal drug screen Nonspecific abnormal toxicological findi ngs documented in this encounter Care Teams Garden Equipment Mechanic Relationship Specialty Start Date End Date Yaneth Dodd MD PCP - General 08/01/09 04/28/17 [address] [place] [address] documented as of this encounter
--- OUTSIDE RECORDS SUMMARY | 2022-01-16 08:02 | XMS_ITS | Encounter Summary ---
:1965 Author Organization [employer] Address [address] [address] Care Team Providers Name Role Phone Yaneth Dodd MD Primary Care Provider Reason for Visit Reason Onset Date Comments Refill 09/09/2016 gabapentin (NEURONTI N) 600 MG capsule Encounter Details Date Type Department Care Team Description 09/09/2016 Refill [facility] Yaneth Dodd R efmorelia (gabapentin Practice (NEURONTIN) 600 MG [address] [facility] [address] capsule) [place], [place] [address] [place], [place] [phone] (Wo rk) Social History Tobacco Use Types Packs/Day Years Used Date Smoking Tobacco: Former Cigarettes 0.5 3 Cigars Smokeless Tobacco: Never Comments: Occasional cigar Alcohol Use Standard Drinks/Week Comments Yes 0 (1 standard drink = 0.6 oz pure alcoho l) Rare Sex Assigned at Date Recorded Not on file documented as of this encounter Nursing Notes Interface, Out Surescripts Prov Query - 09/09/2016 12:58 PM CDT gabapentin (NEURONTIN) 300 MG capsule Protocol: None Exists -> The requested medication was previously set to Historical by an non-prescriber. -> This medication cannot be delegated per protocol. Last qualifying visit: 01/31/2016 (in Family Practice) Next scheduled visit: None Last ordered by UNKNOWN, PHYSICIAN: 11/09/2015 (305 days ago as Historical on 01/31/2016 by BRITTNY LIMA), Sig: Powered by eyesFinder, Reference: [id number], 09/09/2016 12:58:41 PM CDT, Pool: AV REFILL LAVERN ([id number]) Yulissa Syed - 09/09/2016 12:56 PM CDT Refill request: Medication: gabapentin (NEURONTIN) 600 MG capsule Sig: TAKE 1 CAP BY MOUTH 3 TIMES A DAY Qty:90 Last Refill: 07/29/16 County Manager/Appt Center: Was the pharmacy entered into the Preferred Pharmacy field? Yes documented in this encounter Plan of Treatment Not on filedocumented as of this encounter Visit Diagnoses Not on filedocumented in this encounter Care Teams Spinning Operator Relationship Specialty Start Date End Date Yaneth Dodd MD PCP - General 08/01/09 04/28/17 [address] [place] [address] documented as of this encounter
--- OUTSIDE RECORDS SUMMARY | 2022-01-16 08:02 | XMS_ITS | Encounter Summary ---
:1965 Author Organization [facility] Address [address] [place] [address] Care Team Providers Name Role Phone Yaneth Dodd MD Primary Care Provider Reason for Visit Reason Comments FOLLOW-UP, TEST RESULTS Encounter Details Date Type Department Care Team Description 02/04/2016 Telephone [facility] Yaneth Dodd F OLLOW-UP, TEST RESULTS Practice [address] [address] [place], [place] [phone] (Wo rk) Social History Tobacco Use Types Packs/Day Years Used Date Smoking Tobacco: Former Cigarettes 0.5 3 Cigars Smokeless Tobacco: Never Comments: Occasional cigar Alcohol Use Standard Drinks/Week Comments Yes 0 (1 standard drink = 0.6 oz pure alcoho l) Rare Sex Assigned at Date Recorded Not on file documented as of this encounter Nursing Notes Marlys Ordaz LPN - 02/04/2016 3:01 PM CST Pt notified and would like letter sent to home address. Letter sent Marlys Ordaz LPN 02/04/2016, 3:01 PM NTORY COORDINATOR Marlys Ordaz LPN - 02/04/2016 2:57 PM CST ----- Message from Yaneth Dodd MD sent at 02/04/2016 12:30 PM INVENTORY COORDINATOR ----- Call pt and let him know his urine drug screen showed no benzodiazepines in his system. We can print this up for him and give him a copy if needed. NTORY COORDINATOR documented in this encounter Plan of Treatment Not on filedocumented as of this encounter Visit Diagnoses Not on filedocumented in this encounter Care Teams Pooling Operator Relationship Specialty Start Date End Date Yaneth Dodd MD PCP - General 08/01/09 04/28/17 [address] [place] [address] documented as of this encounter
--- OUTSIDE RECORDS SUMMARY | 2022-01-16 08:02 | XMS_ITS | Encounter Summary ---
:1965 Author Organization [employer] Address [address] [address] Care Team Providers Name Role Phone Yaneth Dodd MD Primary Care Provider Reason for Visit Reason Comments FOLLOW-UP,HOSPITAL Encounter Details Date Type Department Care Team Description 09/20/2015 Telephone NE8 Omar Castellanos, FOLLOW-UP,[address] [place] [phone] [place] [address] (Wo rk) Social History Tobacco Use Types Packs/Day Years Used Date Smoking Tobacco: Former Cigarettes 0.5 3 Cigars Smokeless Tobacco: Never Comments: Occasional cigar Alcohol Use Standard Drinks/Week Comments Yes 0 (1 standard drink = 0.6 oz pure alcoho l) Rare Sex Assigned at Date Recorded Not on file documented as of this encounter Nursing Notes Omar Figueroa - 09/20/2015 3:04 PM CDT No answer. documented in this encounter Plan of Treatment Not on filedocumented as of this encounter Visit Diagnoses Not on filedocumented in this encounter Care Teams Logistics And Planning Manager Relationship Specialty Start Date End Date Yaneth Dodd MD PCP - General 08/01/09 04/28/17 [address] [place], [place] [id number] documented as of this encounter
--- OUTSIDE RECORDS SUMMARY | 2022-01-16 08:02 | XMS_ITS | Encounter Summary ---
:1965 Author Organization [facility] Address [address] [place] [address] Care Team Providers Name Role Phone Yaneth Dodd MD Primary Care Provider Reason for Visit Reason Comments Dental Conversion [facility] EDR to [place] convers ion Encounter Details Date Type Department Care Team Description 08/13/2016 Dental Conversion [facility] Christofer Ji , [facility] DDS [address] [facility] [address] [place], [place] [address] [place], [place] [phone] Social History Tobacco Use Types Packs/Day Years Used Date Smoking Tobacco: Former Cigarettes 0.5 3 Cigars Smokeless Tobacco: Never Comments: Occasional cigar Alcohol Use Standard Drinks/Week Comments Yes 0 (1 standard drink = 0.6 oz pure alcoho l) Rare Sex Assigned at Date Recorded Not on file documented as of this encounter Discharge Summaries Interface, In Edr Dental Conversion - 07/06/2012 12:00 AM CDT EDR dismissed Clerical Popup Note, entered 07/06/2012: sign tx est Interface, In Edr Dental Conversion - 06/28/2012 12:00 AM CDT EDR dismissed Clerical Popup Note, entered 06/28/2012: pt needs to sign a tx est Interface, In Edr Dental Conversion - 05/02/2012 12:00 AM CST EDR dismissed Clerical Popup Note, entered 05/02/2012: update consent form & sign tx est R LAB TECHNICIAN Interface, In Edr Dental Conversion - 03/14/2010 12:00 AM CST EDR dismissed Popup Note, entered 03/14/2010: update consent and sign tx est R LAB TECHNICIAN Interface, In Edr Dental Conversion - 03/11/2009 12:00 AM CST EDR dismissed Popup Note, entered 03/11/2009: have pt sign tx est--fill out all forms R LAB TECHNICIAN documented in this encounter Miscellaneous Notes Miscellaneous - Interface, In Edr Dental Conversion - 01/27/2010 12:00 AM SOLAR LAB TECHNICIAN 01/27/2010: Clinic Notes: edr date report- unscheduled tx tx from 03/19/2009 tx is not covered by ins R LAB TECHNICIAN documented in this encounter Plan of Treatment Not on filedocumented as of this encounter Visit Diagnoses Not on filedocumented in this encounter Care Teams Clinical Nursing Coordinator Relationship Specialty Start Date End Date Yaneth Dodd MD PCP - General 08/01/09 04/28/17 [address] [place] [address] documented as of this encounter
--- OUTSIDE RECORDS SUMMARY | 2022-01-16 08:02 | XMS_ITS | Encounter Summary ---
:1965 Author Organization [facility] Address [address] [place] [address] Care Team Providers Name Role Phone Briana Vazquez PA-C Primary Care Provider Encounter Details Date Type Department Care Team Description 04/03/2016 Correspondence None No Primary/Referring, Phy NEW PATIENT Social History Tobacco Use Types Packs/Day Years [...] on filedocumented in this encounter Care Teams Digital Tech Relationship Specialty Start Date End Date Briana Vazquez PA-C PCP - General Physician Fitness Consultant 11/29/19 [address] [place], [place] [id number] documented as of this encounter
--- OUTSIDE RECORDS SUMMARY | 2022-01-16 08:02 | XMS_ITS | Encounter Summary ---
:1965 Author Organization [facility] Address [address] [place] [address] Care Team Providers Name Role Phone Yaneth Dodd MD Primary Care Provider Reason for Visit Reason Onset Date Comments Refill 12/29/2016 traZODone (DESYREL) 100 MG tablet Encounter Details Date Type Department Care Team Description 12/29/2016 [address]ill [facility] Yaneth Dodd R efill (traZODone Practice (DESYREL) 100 MG tablet) [address] [facility] [address] [place] [address] [place], [place] [phone] (Wo rk) Social History Tobacco Use Types Packs/Day Years Used Date Smoking Tobacco: Former Cigarettes 0.5 3 Cigars Smokeless Tobacco: Never Comments: Occasional cigar Alcohol Use Standard Drinks/Week Comments Yes 0 (1 standard drink = 0.6 oz pure alcoho l) Rare Sex Assigned at Date Recorded Not on file documented as of this encounter Nursing Notes Loly Felton RN - 12/29/2016 5:32 PM CDT Per standing order Loly Felton RN Interface, Out Surescripts Prov Query - 12/29/2016 1:02 PM CDT traZODone (DESYREL) 100 MG tablet Protocol: Antidepressants and Antianxiety -> Refill x 3 months (until due for an office visit) Last qualifying visit: 01/31/2016 (in Family Practice) Next scheduled visit: None Last ordered: 09/18/2015 (468 days ago) QTY: 60, Refills: 0, Sig: take 2 tabs by mouth daily at bedtime. indications: sleep (unchanged) Age: 51 Powered by Jewel [employer]oned, Reference: [id number], 12/29/2016 1:02:01 PM CDT, Pool: WYLIE RN ([id number]) documented in this encounter Plan of Treatment Not on filedocumented as of this encounter Visit Diagnoses Not on filedocumented in this encounter Care Teams Principal Technical Architect Relationship Specialty Start Date End Date Yaneth Dodd MD PCP - General 08/01/09 04/28/17 [address] [place] [address] documented as of this encounter
--- OUTSIDE RECORDS SUMMARY | 2022-01-16 08:02 | XMS_ITS | Encounter Summary ---
:1965 Author Organization [facility] Address [address] [address] Care Team Providers Name Role Phone Yaneth Dodd MD Primary Care Provider Reason for Visit Reason Comments FOLLOW-UP,HOSPITAL Encounter Details Date Type Department Care Team Description 09/19/2015 Telephone NE8 Tiffani Seay RN FOLLOW-UP,[address] [address] [place] [address] [phone] (Wo rk) Social History Tobacco Use Types [...] on filedocumented in this encounter Care Teams Spring Maker Relationship Specialty Start Date End Date Yaneth Dodd MD PCP - General 08/01/09 04/28/17 [address] [place] [address] documented as of this encounter
--- OUTSIDE RECORDS SUMMARY | 2022-01-16 08:02 | XMS_ITS | Encounter Summary ---
:1965 Author Organization [facility] Address [address], [place] [address] Care Team Providers Name Role Phone Yaneth Dodd MD Primary Care Provider Reason for Visit Reason Comments Refill tolterodine (DETROL) 2 MG ta blet [Pharmacy Med Name: Tolterodine Tartrate Oral Tablet 2 MG] Encounter Details Date Type Department Care Team Description 07/29/2016 Refill [facility] Yaneth Dodd R efmorelia (tolterodine Practice (DETROL) 2 MG tablet [address] [facility] [address] [facility] [Pharmacy Med Name: [place], [place] [address] [place], [place] Tolterodine Tartrate [phone] Oral Tablet 2 MG]) [phone] (Wo rk) Social History Tobacco Use Types Packs/Day Years Used Date Smoking Tobacco: Former Cigarettes 0.5 3 Cigars Smokeless Tobacco: Never Comments: Occasional cigar Alcohol Use Standard Drinks/Week Comments Yes 0 (1 standard drink = 0.6 oz pure alcoho l) Rare Sex Assigned at Date Recorded Not on file documented as of this encounter Nursing Notes Jessica Baez RN - 07/29/2016 2:05 PM CDT Refilled per standing order. Jessica Baez RN Interface, Out Surescripts Prov Query - 07/29/2016 11:26 AM CDT tolterodine (DETROL) 2 MG tablet [Pharmacy Med Name: Tolterodine Tartrate Oral Tablet 2 MG] Protocol: Urology - Urinary Incontinence -> Refill x 6 months (until due for an office visit) Last qualifying visit: 01/31/2016 (in Family Practice) Next scheduled visit: None Last ordered: 09/18/2015 (315 days ago) QTY: 60, Refills: 0, Sig: take 1 tab by mouth two times a day. (changed but equivalent) Powered by Antengo, Reference: [id number], 07/29/2016 11:26:50 AM CDT, Pool: WYLIE RN ([id number]) documented in this encounter Plan of Treatment Not on filedocumented as of this encounter Visit Diagnoses Not on filedocumented in this encounter Care Teams Insurance Agency Owner Relationship Specialty Start Date End Date Yaneth Dodd MD PCP - General 08/01/09 04/28/17 [address] [place] [address] documented as of this encounter
--- OUTSIDE RECORDS SUMMARY | 2022-01-16 08:02 | XMS_ITS | Encounter Summary ---
:1965 Author Organization [employer] Address [address], [place] [address] Care Team Providers Name Role Phone Yaneth Dodd MD Primary Care Provider Reason for Visit Reason Comments Clarification Of Medication Orders gabapentin (NEURONT IN) 300 MG capsule Encounter Details Date Type Department Care Team Description 09/16/2016 Telephone [facility] Yaneth Dodd [facility] ification Of Practice MD Sebastien Medication Orders [address] [facility] [address] (gabapentin (NEURONTIN) [place], [place] [address] [place], [place] 300 MG capsule) [phone] Social History Tobacco Use Types Packs/Day Years Used Date Smoking Tobacco: Former Cigarettes 0.5 3 Cigars Smokeless Tobacco: Never Comments: Occasional cigar Alcohol Use Standard Drinks/Week Comments Yes 0 (1 standard drink = 0.6 oz pure alcoho l) Rare Sex Assigned at Date Recorded Not on file documented as of this encounter Nursing Notes Marlys Ordaz LPN - 09/17/2016 10:47 AM CDT Spoke with patient. He would like a refill for 600mg 3 times per day. He said last time he was prescribed 300mg 1 x johnson but has been taking 600mg 3x per day and feels that it works better. Send to [facility]. Marlys Ordaz LPN - 09/17/2016 10:19 AM CDT Left message to return call. Yaneth Dodd MD - 09/16/2016 12:48 PM CDT Our rx reads 300mg 3 times daily. Can we call pt and find out exactly what he is taking? Thanks. Yulissa Syed - 09/16/2016 9:57 AM CDT [facility] calling for clarification on medication What condition are you calling about: pharmacy received refill for Gabapentin 300mg 1 x daily. Patient previously was taking 600 mg up to 3 times daily. What concerns do you have: please call back to confirm and explain this change for patient, or please send corrected script. If a prescription is needed, would you like it filled at our [facility]??? pharmacy? no [Raw Stock Dyeing Machine Tender/Appt Center: Was the pharmacy entered into the Preferred Pharmacy field? yes] Best number to reach you? [phone] Is it okay to leave detailed message on your voicemail? No - any pharmacist is ok [Raw Stock Dyeing Machine Tender/Appt Center: If this call is after 3 p.m., communicate to patient: If we are not able to get back to you by the end of the day and your symptoms worsen please contact the Careline] documented in this encounter Plan of Treatment Not on filedocumented as of this encounter Visit Diagnoses Not on filedocumented in this encounter Care Teams Unclaimed Property Manager Relationship Specialty Start Date End Date Yaneth Dodd MD PCP - General 08/01/09 04/28/17 [address] [place] [address] documented as of this encounter
--- OUTSIDE RECORDS SUMMARY | 2022-01-16 08:02 | XMS_ITS | Encounter Summary ---
:1965 Author Organization [facility] Address [address] [place] [address] Care Team Providers Name Role Phone Briana Vazquez PA-C Primary Care Provider Encounter Details Date Type Department Care Team Description 07/29/2016 Refill Order [facility] Chris Dodd MD Practice [id number] [place] [id number] [place] [address] [place] [address] [phone] Social History Tobacco Use Types Packs/Day Years Used Date Smoking Tobacco: Former Cigarettes 0.5 3 Cigars Smokeless Tobacco: Never Comments: Occasional cigar Alcohol Use Standard Drinks/Week Comments Yes 0 (1 standard drink = 0.6 oz pure alcoho l) Rare Sex Assigned at Date Recorded Not on file documented as of this encounter Nursing Notes Page Luther CMA - 07/29/2016 11:33 AM CDT Letter sent to ptShalom Luther CMA 07/29/2016, 11:33 AM documented in this encounter Plan of Treatment Not on filedocumented as of this encounter Visit Diagnoses Diagnosis Encounter for long-term (current) use of medications - Primary Encounter for long-term (current) use of other medications documented in this encounter Care Teams Bunch Trimmer Mold Relationship Specialty Start Date End Date Briana Vazquez PA-C PCP - General Physician Trace Evidence Technician 11/29/19 [address] [place] [address] documented as of this encounter
--- OUTSIDE RECORDS SUMMARY | 2022-01-16 08:03 | XMS_ITS | Encounter Summary ---
:1965 Author Organization [facility] Address [address] [place] [address] Care Team Providers Name Role Phone Yaneth Dodd MD Primary Care Provider Reason for Visit Reason Comments Refill Encounter Details Date Type Department Care Team Description 10/20/2014 Refill [facility] Yaneth Dodd MD Refill [address] [facility] [address] [place], [place] [address] [place] [address] [phone] (Wo rk) Social History Tobacco Use Types Packs/Day Years Used Date Smoking Tobacco: Former Cigarettes 0.5 3 Cigars Smokeless Tobacco: Never Comments: Occasional cigar Alcohol Use Standard Drinks/Week Comments Yes 0 (1 standard drink = 0.6 oz pure alcoho l) Rare Sex Assigned at Date Recorded Not on file documented as of this encounter Nursing Notes Interface, Out Surescripts Prov Query - 10/20/2014 3:42 AM CDT diclofenac (AKA VOLTAREN) 50 MG enteric coated tablet [Pharmacy Med Name: DICLOFENAC SOD EC 50MG TAB] - VIOLATION: Medication is not assigned to a protocol. - PROTOCOL: None Exists - LAST QUALIFYING VISIT IN FAMILY PRACTICE: 07/31/2014 - NEXT SCHEDULED VISIT: None - LAST REFILLED ON: 08/21/2014, QTY: 60, Refills: 1, Sig: take 1 tablet by mouth two times a day. (unchanged) Powered by [employer], Reference: [id number], 10/20/2014 3:42:53 AM CDT, Pool: WYLIE RN ([id number]) documented in this encounter Plan of Treatment Not on filedocumented as of this encounter Visit Diagnoses Not on filedocumented in this encounter Care Teams Classified Advertising Manager Relationship Specialty Start Date End Date Yaneth Dodd MD PCP - General 08/01/09 04/28/17 [address] [place] [address] documented as of this encounter
--- OUTSIDE RECORDS SUMMARY | 2022-01-16 08:03 | XMS_ITS | Encounter Summary ---
:1965 Author Organization [facility] Address [address] [place] [address] Care Team Providers Name Role Phone Briana Vazquez PA-C Primary Care Provider Encounter Details Date Type Department Care Team Description 08/29/2015 Partner ED External to [place] [facility], BACK [facility] LEG PAIN DRUG Provider USE Social History Tobacco Use Types Packs/Day Years [...] on filedocumented in this encounter Care Teams Swimming Coach Or Instructor Relationship Specialty Start Date End Date Briana Vazquez PA-C PCP - General Physician Stylist Assistant 06/30/17 10/03/19 [address] [place] [address] documented as of this encounter
--- OUTSIDE RECORDS SUMMARY | 2022-01-16 08:03 | XMS_ITS | Encounter Summary ---
:1965 Author Organization [facility] Address [address] [place] [address] Care Team Providers Name Role Phone Yaneth Dodd MD Primary Care Provider Reason for Visit Reason Comments Appointment Encounter Details Date Type Department Care Team Description 04/18/2015 Telephone [facility] Camilo Bullock MD Appointment [address] [address] [place] [address] [phone] (Wo rk) Social History Tobacco Use Types Packs/Day Years Used Date Smoking Tobacco: Former Cigarettes 0.5 3 Cigars Smokeless Tobacco: Never Comments: Occasional cigar Alcohol Use Standard Drinks/Week Comments Yes 0 (1 standard drink = 0.6 oz pure alcoho l) Rare Sex Assigned at Date Recorded Not on file documented as of this encounter Nursing Notes Stacey Felton - 04/18/2015 1:36 PM CST The pt is aware is his appointment is cancelled. RNOON NANNY Hien Cruz LPN - 04/18/2015 1:22 PM CST Verbally per Dr. Bullock, please schedule pt with a provider who does injections in the fingers. Dr. Bullock no longer does them. Pt is scheduled with Dr. Bullock on 04/22/15. Hien Cruz LPN RNOON NANNY documented in this encounter Plan of Treatment Not on filedocumented as of this encounter Visit Diagnoses Not on filedocumented in this encounter Care Teams Stitching Machine Feeder Or Offbearer Relationship Specialty Start Date End Date Yaneth Dodd MD PCP - General 08/01/09 04/28/17 [address] [place] [address] documented as of this encounter
--- OUTSIDE RECORDS SUMMARY | 2022-01-16 08:03 | XMS_ITS | Encounter Summary ---
:1965 Author Organization [employer] Address [address], [place] [address] Care Team Providers Name Role Phone Yaneth Dodd MD Primary Care Provider Reason for Visit Reason Comments Patient Care Coordination External Ed Follow-up Encounter Details Date Type Department Care Team Description 09/12/2015 Telephone [facility] Yaneth Dodd P [facility] MD Coordination; External [id number] [place] [address] Ed Follow-up [place], [place] [address] [place], [place] [phone] (Wo rk) Social History Tobacco Use Types Packs/Day Years Used Date Smoking Tobacco: Former Cigarettes 0.5 3 Cigars Smokeless Tobacco: Never Comments: Occasional cigar Alcohol Use Standard Drinks/Week Comments Yes 0 (1 standard drink = 0.6 oz pure alcoho l) Rare Sex Assigned at Date Recorded Not on file documented as of this encounter Nursing Notes Althea Clark, RN - 09/12/2015 1:03 PM CDT ED Visit Follow-Up: Did not attempt to reach patient/parent: Patient transitioned from ED to the hospital (currently in the hospital). documented in this encounter Plan of Treatment Not on filedocumented as of this encounter Visit Diagnoses Not on filedocumented in this encounter Care Teams Beam Racker Relationship Specialty Start Date End Date Yaneth Dodd MD PCP - General 08/01/09 04/28/17 [address] [place] [address] documented as of this encounter
--- OUTSIDE RECORDS SUMMARY | 2022-01-16 08:03 | XMS_ITS | Encounter Summary ---
:1965 Author Organization [facility] Address [address] [place] [address] Care Team Providers Name Role Phone Yaneth Dodd MD Primary Care Provider Reason for Visit Reason Comments Refill Encounter Details Date Type Department Care Team Description 03/18/2015 Refill [facility] Yaneth Dodd MD Refill [address] [facility] [address] [place], [place] [address] [place] [address] [phone] (Wo rk) Social History Tobacco Use Types Packs/Day Years Used Date Smoking Tobacco: Former Cigarettes 0.5 3 Cigars Smokeless Tobacco: Never Comments: Occasional cigar Alcohol Use Standard Drinks/Week Comments Yes 0 (1 standard drink = 0.6 oz pure alcoho l) Rare Sex Assigned at Date Recorded Not on file documented as of this encounter Nursing Notes Rose Jesus - 03/19/2015 11:12 AM CST Called and male said madelyn, when asked for junior, male hung up, sending letter out TIVE CONSULTANT Rose Jesus - 03/18/2015 10:59 AM CST LMTCB Yaneth Almazan MD - 03/18/2015 7:39 AM CST Please call pt and let him know he needs labs for further refills. He does not need to be fasting. TIVE CONSULTANT Interface, Out listedplaces Prov Query - 03/18/2015 3:57 AM CST lisinopril (AKA ZESTRIL) 20 MG tablet [Pharmacy Med Name: LISINOPRIL 20MG TABLET] - VIOLATION: Cr and K are overdue (performed over 21 months ago, required every 12 months) - PROTOCOL: Cardiovascular - Rylan Inhibitors - LAST QUALIFYING VISIT IN FAMILY PRACTICE: 07/31/2014 - NEXT SCHEDULED VISIT: None - LAST REFILLED ON: 09/18/2014, QTY: 90, Refills: 1, Sig: take 1 tab by mouth daily. (changed but equivalent) - SBP: 112.0mm Hg on 07/31/2014 - DBP: 74.0mm Hg on 07/31/2014 - Cr: 0.95mg/dL on 06/17/2013 - K: 4.4mEq/L on 06/17/2013 Powered by [employer], Reference: [id number], 03/18/2015 3:57:31 AM CREATIVE CONSULTANT, Pool: AV REFILL RN ([id number]) TIVE CONSULTANT Interface, Out listedplaces Prov Query - 03/18/2015 3:57 AM CST The following lab order(s) may be associated with the Result Note below: POTASSIUM; CREATININE / GFR Notes Recorded by Yaneth Dodd MD on 06/20/2013 at 2:36 PM Call pt. Let him know that his 2 liver tests are mildly elevated. Ask if anything has changed in his meds andif he is drinking more alcohol or using more tylenol. I would like him to refrain from any alcohol and avoid tylenonl (other than his routine pain med) for 1 week and recheck his liver tests. I will have orders in the lab. TIVE CONSULTANT documented in this encounter Plan of Treatment Not on filedocumented as of this encounter Visit Diagnoses Diagnosis Follow up - Primary documented in this encounter Care Teams Break Out Man Relationship Specialty Start Date End Date Yaneth Dodd MD PCP - General 08/01/09 04/28/17 [address] [place] [address] documented as of this encounter
--- OUTSIDE RECORDS SUMMARY | 2022-01-16 08:03 | XMS_ITS | Encounter Summary ---
:1965 Author Organization [facility] Address [address] [address] Care Team Providers Name Role Phone Yaneth Dodd MD Primary Care Provider Reason for Visit Reason Comments Refill diclofenac (AKA VOLTAREN) 50 MG enteric coated tablet [Pharmacy Med Name: DICLOFENAC SOD EC 50MG TAB] Encounter Details Date Type Department Care Team Description 05/25/[address] [facility] Yaneth Dodd R efill (diclofenac (AKA Practice VOLTMANINDERN) 50 MG enteric [address] [place] [address] coated tablet [Pharmacy [place], [place] [address] [place], [place] Med Name: DICLOFENAC SOD [phone] [id number] EC 50MG TAB]) [phone] (Wo rk) Social History Tobacco Use Types Packs/Day Years Used Date Smoking Tobacco: Former Cigarettes 0.5 3 Cigars Smokeless Tobacco: Never Comments: Occasional cigar Alcohol Use Standard Drinks/Week Comments Yes 0 (1 standard drink = 0.6 oz pure alcoho l) Rare Sex Assigned at Date Recorded Not on file documented as of this encounter Nursing Notes Maryam Vasquez RN - 05/27/2015 8:22 AM CDT per standing order Maryam Vasquez RN Interface, Out Surescripts Prov Query - 05/25/2015 3:27 AM CDT diclofenac (AKA VOLTAREN) 50 MG enteric coated tablet [Pharmacy Med Name: DICLOFENAC SOD EC 50MG TAB] - REFILL: 12 months - PROTOCOL: NSAIDs - RATIONALE: This refill should last until the patient is due for an office visit. - LAST QUALIFYING VISIT IN FAMILY PRACTICE: 03/22/2015 - NEXT SCHEDULED VISIT: None - LAST REFILLED ON: 12/18/2014, QTY: 60, Refills: 1, Sig: take 1 tablet by mouth two times a day. (unchanged) Powered by [employer], Reference: [id number], 05/25/2015 3:27:15 AM CDT, Pool: WYLIE RN ([id number]) documented in this encounter Plan of Treatment Not on filedocumented as of this encounter Visit Diagnoses Not on filedocumented in this encounter Care Teams Hydrodynamics Professor Relationship Specialty Start Date End Date Yaneth Dodd MD PCP - General 08/01/09 04/28/17 [address] [place] [address] documented as of this encounter
--- OUTSIDE RECORDS SUMMARY | 2022-01-16 08:03 | XMS_ITS | Encounter Summary ---
:1965 Author Organization [facility] Address [address] [place] [address] Care Team Providers Name Role Phone Yaneth Dodd MD Primary Care Provider Reason for Visit Reason Comments Refill Encounter Details Date Type Department Care Team Description 11/18/2014 Refill [facility] Yaneth Dodd MD Refill [address] [facility] [address] [place], [place] [address] [place] [address] [phone] (Wo rk) Social History Tobacco Use Types Packs/Day Years Used Date Smoking Tobacco: Former Cigarettes 0.5 3 Cigars Smokeless Tobacco: Never Comments: Occasional cigar Alcohol Use Standard Drinks/Week Comments Yes 0 (1 standard drink = 0.6 oz pure alcoho l) Rare Sex Assigned at Date Recorded Not on file documented as of this encounter Nursing Notes Radha Kilgore RN - 11/19/2014 1:00 PM CDT Medication was Discontinued on 07/31/14 Routing to provider for review. Radha Kilgore RN Interface, Out Surescripts Prov Query - 11/18/2014 3:35 AM CDT valACYclovir (AKA VALTREX) 500 MG tablet [Pharmacy Med Name: VALACYCLOVIR HCL 500MG TABLET] - WARNING #1: The requested medication appears on the patient's medication history at a different strength (1 gm). - WARNING #2: The requested medication was discontinued on 07/31/2014 by CRESCENCIO BALDERRAMA - REFILL: 9 months (if warnings resolved) - PROTOCOL: Antiherpetics - Oral Agents - RATIONALE: This refill should last until the patient is due for an office visit. - LAST QUALIFYING VISIT IN FAMILY PRACTICE: 07/31/2014 - NEXT SCHEDULED VISIT: None - LAST REFILLED ON: 02/13/2014, QTY: 180, Refills: 2, Sig: take 1 tablet (500 mg) by oral route 2 times per day (unchanged) - Cr: 0.95mg/dL on 06/17/2013 - [age] Powered by [employer], Reference: [id number], 11/18/2014 3:35:19 AM ZIATHector: WYLIE RN ([id number]) Interface, Out [employer] Query - 11/18/2014 3:35 AM CDT The following lab order(s) may be associated with the Result Note below: CREATININE / GFR Notes Recorded by Yaneth [...] I will have orders in the lab. documented in this encounter Plan of Treatment Not on filedocumented as of this encounter Visit Diagnoses Not on filedocumented in this encounter Care Teams Senior Graduate Advisor Relationship Specialty Start Date End Date Yaneth Dodd MD PCP - General 08/01/09 04/28/17 [address] [place] [address] documented as of this encounter
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
--- OUTSIDE RECORDS SUMMARY | 2022-01-16 08:03 | XMS_ITS | Encounter Summary ---
:1965 Author Organization [facility] Address [address] [place] [address] Care Team Providers Name Role Phone Yaneth Dodd MD Primary Care Provider Reason for Referral Consult/Transfer Care (Routine) - Closed Specialty Diagnoses / Procedures Referred By Contact Refer red To Contact Diagnoses Essential hypertension (HRC) Janet Urena APRN, CNP [address] [place] [address] 0 Referral ID Status Reason Start Date Expiration Date Visits Requ ested Visits Authorized [id number] Closed 03/22/2015 06/20/2016 1 1 Scheduling Instructions Your provider has recommended an appoint ment with a [facility] nurse. A medical scheduler will contact you within the next 3 busin ess days to assist you in setting up this appointment. NSED PROFESSIONAL COUNSELOR Consult/Transfer Care (Routine) - Closed Specialty Diagnoses / Procedures Referred By Contact Refer red To Contact Diagnoses Trigger middle finger of right hand Janet Urena APRN, CNP [address] [place] [address]44 0 Referral ID Status Reason Start Date Expiration Date Visits Requ ested Visits Authorized [id number] Closed 03/22/2015 06/20/2016 1 1 Scheduling Instructions Your provider has recommended an appoint ment with [facility] Hand Surgery. You may call [phone] to schedule your a ppointment. If you prefer, a medical scheduler will contact you within the next 3 d ays to assist you in setting up this appointment. NSED PROFESSIONAL COUNSELOR Consult/Transfer Care (Routine) - Closed Specialty Diagnoses / Procedures Referred By Contact Refer red To Contact Optometry Janet Urena APRN, Bl Opto metry DIP TUBE ASSEMBLER MACHINE [address] [place] [address] [place], [place] [address] Fax: Referral ID Status Reason Start Date Expiration Date Visits Requ ested Visits Authorized [id number] Closed 03/22/2015 06/20/2016 1 1 Scheduling Instructions Your provider has recommended an appoint ment with [facility]. You may call [phone] to schedule your a ppointment. If you prefer, a medical scheduler will contact you within the next 3 business d ays to assist you in setting up this appointment. NSED PROFESSIONAL COUNSELOR Reason for Visit Reason Comments BP CHECK, concerned with BP being real ly low and then really high Refill BP meds (has not refilled th em in 2 weeks) Trigger Finger rt hand Consult/Transfer Care (Routine) - Closed Specialty Diagnoses / Procedures Referred By Contact Refer red To Contact Diagnoses Essential hypertension (HRC) Janet Urena APRN, CNP [address] [place], [place] [address] Referral ID Status Reason Start Date Expiration Date Visits Requ ested Visits Authorized [id number] Closed 03/22/2015 06/20/2016 1 1 Encounter Details Date Type Department Care Team Description 03/22/2015 Office Visit [facility] Janet Urena Es sential hypertension (Primary Dx); Practice JENNY RIVERA Trigger middle finger of right hand [address] [address] [place] [address] [phone] Social History Tobacco Use Types Packs/Day Years [...] Sign Reading Time Taken Comments Blood Pressure 94/60 03/22/2015 9:39 AM LICENSED PROFESSIONAL COUNSELOR Pulse 76 03/22/2015 9:39 AM LICENSED PROFESSIONAL COUNSELOR Temperature - - Respiratory Rate 14 03/22/2015 9:39 AM LICENSED PROFESSIONAL COUNSELOR Oxygen Saturation - - Inhaled Oxygen Concentration - - Weight 89.4 kg (197 lb) 03/22/2015 9:39 AM LICENSED PROFESSIONAL COUNSELOR Height - - Body Mass Index 25.64 08/27/2012 9:41 AM CDT documented in this encounter Patient Instructions Patient InstructionsJanet Urena APRN, DIP TUBE ASSEMBLER MACHINE - 03/22/2015 9:51 AM LICENSED PROFESSIONAL COUNSELOR Images from the original note were not included. Decrease to 10 mg daily, check your blood pressures at home a few times a week, let me know if your go up over 140 on top or over 90 on bottom number. I will have nurses call you for an office recheck in about 2 weeks You MUST cut down on your sodium intake, try the mortans lite salt, but still use sparingly as sodium can be a huge factor in high blood pressure. Work on doing some form of cardiovascular activity a minimum of 3 times a week, at least 20 min of brisk walking can help, you should be able to talk but not sing. Get your eyes check to make sure your vision isn't actually changing vs it being due to low blood pressure. DASH Diet: After Your Visit Your Care Instructions The DASH diet is an eating plan that can help lower your blood pressure. DASH stands for Dietary Approaches to Stop Hypertension. Hypertension is high blood pressure. The DASH diet focuses on eating foods that are high in calcium, potassium, and magnesium. These nutrients can lower blood pressure. The foods that are highest in these nutrients are fruits, vegetables,low-fat dairy products, nuts, seeds, and legumes. But taking calcium, potassium, and magnesium supplements instead of eating foods that are high in those nutrients does not have the same effect. The DASH diet also includes whole grains, fish, and poultry. The DASH diet is one of several lifestyle changes your doctor may recommend to lower your high bloodpressure. Your doctor may also want you to decrease the amount of sodium in your diet. Lowering sodium while following the DASH diet can lower blood pressure even further than just the DASH diet alone. Follow-up care is a crawford part of your treatment and safety. Be sure to make and go to all appointments, and call your doctor if you are having problems. It's also a good idea to know your test results and keep a list of the medicines you take. How can you care for yourself at home? Following the DASH diet ?? Eat 4 to 5 servings of fruit each day. A serving is 1 medium-sized piece of fruit, ?? cup choppedor canned fruit, 1/4 cup dried fruit, or 4 ounces (?? cup) of fruit juice. Choose fruit more often than fruit juice. ?? Eat 4 to 5 servings of vegetables each day. A serving is 1 cup of lettuce or raw leafy vegetables, ?? cup of chopped or cooked vegetables, or 4 ounces (?? cup) of vegetable juice. Choose vegetables more often than vegetable juice. ?? Get 2 to 3 servings of low-fat and fat-free dairy each day. A serving is 8 ounces of milk, 1 cup of yogurt, or 1 ?? ounces of cheese. ?? Eat 6 to 8 servings of grains each day. A serving is 1 slice of bread, 1 ounce of dry cereal, or ?? cup of cooked rice, pasta, or cooked cereal. Try to choose whole-grain products as much as possible. ?? Limit lean meat, poultry, and fish to 2 servings each day. A serving is 3 ounces, about the size of a deck of cards. ?? Eat 4 to 5 servings of nuts, seeds, and legumes (cooked dried beans, lentils, and split peas) each week. A serving is 1/3 cup of nuts, 2 tablespoons of seeds, or ?? cup cooked dried beans or peas. ?? Limit fats and oils to 2 to 3 servings each day. A serving is 1 teaspoon of vegetable oil or 2 tablespoons of salad dressing. ?? Limit sweets and added sugars to 5 servings or less a week. A serving is 1 tablespoon jelly or jam, ?? cup sorbet, or 1 cup of lemonade. ?? Eat less than 2,300 milligrams (mg) of sodium a day. If you have high blood pressure, diabetes, or chronic kidney disease, if you are -[place], or if you are older than age 50, try to limit the amount of sodium you eat to less than 1,500 mg a day. Tips for success ?? Start small. Do not try to make dramatic changes to your diet all at once. You might feel that you are missing out on your favorite foods and then be more likely to not follow the plan. Make small changes, and stick with them. Once those changes become habit, add a few more changes. ?? Try some of the following: ?? Make it a goal to eat a fruit or vegetable at every meal and at snacks. This will make it easy toget the recommended amount of fruits and vegetables each day. ?? Try yogurt topped with fruit and nuts for a snack or healthy dessert. ?? Add lettuce, tomato, cucumber, and onion to sandwiches. ?? Combine a ready-made pizza crust with low-fat mozzarella cheese and lots of vegetable toppings. Try using tomatoes, squash, spinach, broccoli, carrots, cauliflower, and onions. ?? Have a variety of cut-up vegetables with a low-fat dip as an appetizer instead of chips and dip. ?? Sprinkle sunflower seeds or chopped almonds over salads. Or try adding chopped walnuts or almondsto cooked vegetables. ?? Try some vegetarian meals using beans and peas. Add garbanzo or kidney beans to salads. Make burritos and tacos with mashed lucas beans or black beans. Where can you learn more? Go to [employer] and enter H967 in the search box. Current as of: May 17, 2013 Content Version: 10.4 ?? [id number] [employer]. Learning About High Blood Pressure What is high blood pressure? Blood pressure is a measure of how hard the blood pushes against the ordoñez of your arteries. It's normal for blood pressure to go up and down throughout the day, but if it stays up, you have high bloodpressure. Another name for high blood pressure is hypertension. Two numbers tell you your blood pressure. The first number is the systolic pressure. It shows how hard the blood pushes when your heart is pumping. The second number is the diastolic pressure. It showshow hard the blood pushes between heartbeats, when your heart is relaxed and filling with blood. A blood pressure of less than 120/80 (say 120 over 80) is ideal for an adult. High blood pressure is 140/90 or higher. Many people fall into the category in between, called prehypertension. People with prehypertension need to make lifestyle changes to bring their blood pressure down and help preventor delay high blood pressure. What happens when you have high blood pressure? ?? Blood flows through your arteries with too much force. Over time, this damages the ordoñez of your arteries. But you can't feel it. High blood pressure usually doesn't cause symptoms. ?? Fat and calcium start to build up in your arteries. This buildup is called plaque. Plaque makes your arteries narrower and stiffer. Blood can't flow through them as easily. ?? This lack of good blood flow starts to damage some of the organs in your body. This can lead to problems such as coronary artery disease and heart attack, heart failure, stroke, kidney failure, and eye damage. How can you prevent high blood pressure? ?? Stay at a healthy weight. ?? Try to limit how much sodium you eat to less than 2,300 milligrams (mg) a day. And try to limit the sodium you eat to less than 1,500 mg a day if you are 51 or older, are black, or have high blood pressure, diabetes, or chronic kidney disease. ?? Buy foods that are labeled unsalted, sodium-free, or low-sodium. Foods labeled reduced-sodium and light sodium may still have too much sodium. ?? Flavor your food with garlic, lemon juice, onion, vinegar, herbs, and spices instead of salt. Do not use soy sauce, steak sauce, onion salt, garlic salt, mustard, or ketchup on your food. ?? Use less salt (or none) when recipes call for it. You can often use half the salt a recipe calls for without losing flavor. ?? Be physically active. Get at least 30 minutes of exercise on most days of the week. Walking is a good choice. You also may want to do other activities, such as running, swimming, cycling, or playingtennis or team sports. ?? Limit alcohol to 2 drinks a day for men and 1 drink a day for women. ?? Eat plenty of fruits, vegetables, and low-fat dairy products. Eat less saturated and total fats. How is high blood pressure treated? ?? Your doctor will suggest making lifestyle changes. For example, your doctor may ask you to eat healthy foods, quit smoking, lose extra weight, and be more active. ?? If lifestyle changes don't help enough or your blood pressure is very high, you will have to takemedicine every day. Follow-up care is a crawford part of your treatment and safety. Be sure to make and go to all appointments, and call your doctor if you are having problems. It's also a good idea to know your test results and keep a list of the medicines you take. Where can you learn more? Go to [employer] and enter P501 in the search box. Current as of: May 17, 2013 Content Version: 10.4 ?? [id number] Krowder. Trigger Finger: After Your Visit Your Care Instructions A trigger finger is a finger stuck in a bent position. The bent finger usually straightens out on its own. A trigger finger can be painful, but it normally is not a serious problem. Trigger fingers seem to occur more in some groups of people. These include people who have diabetes or arthritis or who have injured their hands in the past. This problem also occurs in musicians and people who underground foreman tools often. Rest, exercises, and other things you can do at home may help your trigger finger relax so that it can bend as it should. You may get a corticosteroid shot. This can reduce swelling and pain. Your doctor may put a splint on your finger. This will give your finger some rest and avoid irritating the joint. You may need surgery if the finger keeps locking in a bent position. Follow-up care is a crawford part of your treatment and safety. Be sure to make and go to all appointments, and call your doctor if you are having problems. It's also a good idea to know your test results and keep a list of the medicines you take. How can you care for yourself at home? ?? If your doctor put a splint on your finger, wear the splint as directed. Do not remove it until your doctor says you can. ?? You may need to change your activities to avoid movements that irritate the finger. ?? If your finger is swollen, put ice or a cold pack on your finger for 10 to 20 minutes at a time. Try to do this every 1 to 2 hours for the next 3 days (when you are awake) or until the swelling goesdown. Put a thin cloth between the ice and your skin. ?? Prop up your hand on a pillow when you ice it or anytime you sit or lie down during the next 3 days. Try to keep it above the level of your heart. This will help reduce swelling. ?? Take your medicines exactly as prescribed. Call your doctor if you think you are having a problemwith your medicine. ?? Take anti-inflammatory medicines to reduce pain and swelling. These include ibuprofen (Advil, Motrin) and naproxen (Aleve). Read and follow all instructions on the label. ?? If your doctor recommends exercises, do them as directed. When should you call for help? Call your doctor now or seek immediate medical care if: ?? Your finger locks in a bent position and will not straighten. Watch closely for changes in your health, and be sure to contact your doctor if: ?? You do not get better as expected. Where can you learn more? Go to [employer] and enter M826 in the search box. Current as of: January 19, 2014 Content Version: 10.4 ?? [id number] [employer]. NSED PROFESSIONAL COUNSELOR documented in this encounter Progress Notes Jante Urena APRN, CNP - 03/22/2015 11:06 AM CST SUBJECTIVE: Nicanor Alvarado is a 49 y.o. old male who presents to clinic with concerns about his blood pressure and medication management as well as concerns about trigger finger. Pt notes he was placed on the 20 mg dose of lisinopril a few years ago, this is looked up and it wasin August of 2010. 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 Recently he has had some dizziness and vision changes. His BP today is low. In review of his history he has been more active in past years compared to when he was placed on the 20 mg dose, has lost 13-27 lbs (his weight tends to vary) as well. 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 Pt notes that for about 6 weeks he has had problems with the middle finger of his right hand, it is gets locked into the bent position at times, more notably int he morning and he has to force it straight. More recently it has felt stiff and more painful than in the past and he would like to see hand about this. Complete Review of Systems is negative, unless noted in HPI OBJECTIVE: General: BP 94/60 mmHg Pulse 76 Resp 14 Wt 197 lb (89.359 kg) He is well developed, well nourished, well groomed, without obvious deformities. Psychiatric: he is oriented to time, place, and person; recent and remote memory intact; mood and affect are appropriate. Neurologic: Cranial nerves II-XII grossly intact;Sensation intact to light touch Fingers FROM, when making fist all fingers return to extended position with the exception of his right middle finger which remains stuck in the bent position, it is opened manually by myself and several clicks are felt when this is done. ASSESSMENT: ICD-10-CM 1. Essential hypertension I10 lisinopril (AKA ZESTRIL) 10 MG tablet 2. Trigger middle finger of right hand M65.331 HAND SURGERY CONSULT-ADULT/PEDS FINGER SPLINT STATIC ([id number]) PLAN: With weight loss, increased activity and low readings as well as symptoms of dizziness and vision changes I am having the pt reduce his lisinopril dose to 10 mg, i want him to check his bp at home several times during the week and will have him RTC for BP check with nurses in 2 weeks. We discussed exercise and diet; especially sodium intake in regard to his BP. Pt notes he really really likes his sodium I expressed to him that this can be a large factor in his BP and if he is ableto changes his diet and stay consistent with it there is always a chance he can get off his medication completely. Advised eye exam after being on new dose for 1 week if symptoms continue. Pt verbalized understanding of and agreement with this plan. Janet Urena APRN, DIP TUBE ASSEMBLER MACHINE 03/22/2015 11:11 AM NSED PROFESSIONAL COUNSELOR documented in this encounter Plan of Treatment Scheduled Referrals Name Type Priority Associated Diagnoses Order S chedule OPHTHALMOLOGY Referral Routine Ordered: 03/22 CONSULT-ADULT/PEDS HAND SURGERY Referral Routine Trigger middle finger Ordere d: 03/22/2015 CONSULT-ADULT/PEDS of right hand NURSE APPOINTMENT Referral Routine Essential hypertension Ordered: 03/22/2015 ADULT/PEDS [[id number]] documented as of this encounter Visit Diagnoses Diagnosis Essential hypertension (HRC) - Primary Unspecified essential hypertension Trigger middle finger of right hand Trigger finger (acquired) documented in this encounter Care Teams Science Specialist Relationship Specialty Start Date End Date Yaneth Dodd MD PCP - General 08/01/09 04/28/17 [address] [place] [address] documented as of this encounter
--- OUTSIDE RECORDS SUMMARY | 2022-01-16 08:03 | XMS_ITS | Encounter Summary ---
:1965 Author Organization [employer] Address [address] [place] [address] Care Team Providers Name Role Phone Yaneth Dodd MD Primary Care Provider Encounter Details Date Type Department Care Team Description 02/16/2015 Notes/Orders [facility] Yaneth Dodd for Practice MD Sebastien long-term (current) [address] use of medications [place], [place] ([place] Dx) [id number] Social History Tobacco Use Types Packs/Day Years Used Date Smoking Tobacco: Former Cigarettes 0.5 3 Cigars Smokeless Tobacco: Never Comments: Occasional cigar Alcohol Use Standard Drinks/Week Comments Yes 0 (1 standard drink = 0.6 oz pure alcoho l) Rare Sex Assigned at Date Recorded Not on file documented as of this encounter Nursing Notes Page Luther CMA - 02/18/2015 8:18 AM CST Pt notified. Page Luther CMA 02/18/2015, 8:18 AM RAL OFFICE REPAIRER Interface, Out Surescripts Prov Query - 02/16/2015 3:50 AM CST ORDER THE FOLLOWING: - CREATININE: Previously ordered on 10/22/2014 and will on 10/20/2015 - POTASSIUM: Previously ordered on 10/22/2014 and will on 10/20/2015 SCHEDULE THE FOLLOWING: - CREATININE BY: Now (Due as of 06/12/2014 for lisinopril (AKA ZESTRIL) 20 MG tablet) - POTASSIUM BY: Now (Due as of 06/12/2014 for lisinopril (AKA ZESTRIL) 20 MG tablet) - LAST QUALIFYING VISIT IN FAMILY PRACTICE: 07/31/2014 - NEXT SCHEDULED VISIT: None - NEXT LAB APPOINTMENT: None We recently received a refill request on one of your medications. While reviewing your chart, we noticed that you are going to be due for lab work within the next 3 months for the following medication: LISINOPRIL (AKA ZESTRIL) 20 MG TABLET You can schedule your lab appointment online at [employer] or by calling the appointment center at the phone number listed above. Thank you for choosing [employer]. The [facility]ill [facility] Nurses Powered by [employer], Reference: [id number], 02/16/2015 3:50:37 AM Hector CENTENO: ROB REFFAM RN ([id number]) Electronically signed by Uvaldo, Jose Juan AlbrightApollidonrubyRFID Global Solution Prov Query at 06/17/2015 5:00 PM CDT documented in this encounter Plan of Treatment Not on filedocumented as of this encounter Visit Diagnoses Diagnosis Encounter for long-term (current) use of medications - Primary Encounter for long-term (current) use of other medications documented in this encounter Care Teams Felt Dyeing Machine Tender Relationship Specialty Start Date End Date Yaneth Dodd MD PCP - General 08/01/09 04/28/17 [address] [place] [address] documented as of this encounter
--- OUTSIDE RECORDS SUMMARY | 2022-01-16 08:03 | XMS_ITS | Encounter Summary ---
:1965 Author Organization [facility] Address [address] [place] [address] Care Team Providers Name Role Phone Briana Vazquez PA-C Primary Care Provider Encounter Details Date Type Department Care Team Description 09/12/2015 Consent for [facility] Department RH INFORM ED CONSENT Procedure/Treatment NEUROLEP TIC MEDICATIONS Social History Tobacco Use Types Packs/Day Years [...] on filedocumented in this encounter Care Teams Manager Collection Relationship Specialty Start Date End Date Briana Vazquez PA-C PCP - General Physician Flight Engineer Manager 11/29/19 [address] [place] [address] documented as of this encounter
--- OUTSIDE RECORDS SUMMARY | 2022-01-16 08:03 | XMS_ITS | Encounter Summary ---
:1965 Author Organization [employer] Address [address] [place] [address] Care Team Providers Name Role Phone Yaneth Dodd MD Primary Care Provider Reason for Visit Reason Comments Refill Encounter Details Date Type Department Care Team Description 08/19/2014 Refill [facility] Janet Urena APRN, Refill [address] [place], [place] [address] [place] [address] [place] [address] Social History Tobacco Use Types Packs/Day Years Used Date Smoking Tobacco: Former Cigarettes 0.5 3 Cigars Smokeless Tobacco: Never Comments: Occasional cigar Alcohol Use Standard Drinks/Week Comments Yes 0 (1 standard drink = 0.6 oz pure alcoho l) Rare Sex Assigned at Date Recorded Not on file documented as of this encounter Nursing Notes Interface, Out Surescripts Prov Query - 08/19/2014 3:36 AM CDT diclofenac (AKA VOLTAREN) 50 MG enteric coated tablet [Pharmacy Med Name: DICLOFENAC SOD EC 50MG TAB] - VIOLATION: Medication is not assigned to a protocol. - PROTOCOL: None Exists - LAST QUALIFYING VISIT IN FAMILY PRACTICE: 07/31/2014 - NEXT SCHEDULED VISIT: None - LAST REFILLED ON: 06/20/2014, QTY: 60, Refills: 1, Sig: take 1 tablet by mouth two times a day. (unchanged) Powered by [email or web address], Reference: [id number], 08/19/2014 3:36:41 AM CDT, Pool: BAUDILIO HERCULES RN ([id number]) documented in this encounter Plan of Treatment Not on filedocumented as of this encounter Visit Diagnoses Not on filedocumented in this encounter Care Teams Sidewalk Inspector Relationship Specialty Start Date End Date Yaneth Dodd MD PCP - General 08/01/09 04/28/17 [address] [place] [address] documented as of this encounter
--- OUTSIDE RECORDS SUMMARY | 2022-01-16 08:03 | XMS_ITS | Encounter Summary ---
:1965 Author Organization [facility] Address [address] [place] [address] Care Team Providers Name Role Phone Yaneth Dodd MD Primary Care Provider Reason for Visit Reason Comments Refill Encounter Details Date Type Department Care Team Description 02/16/2015 Refill [facility] Yaneth Dodd MD Refill [address] [facility] [place] [address] [place], [place] [address] [place] [address] [phone] (Wo rk) Social History Tobacco Use Types Packs/Day Years Used Date Smoking Tobacco: Former Cigarettes 0.5 3 Cigars Smokeless Tobacco: Never Comments: Occasional cigar Alcohol Use Standard Drinks/Week Comments Yes 0 (1 standard drink = 0.6 oz pure alcoho l) Rare Sex Assigned at Date Recorded Not on file documented as of this encounter Nursing Notes Malia Correia RN - 02/18/2015 8:34 AM CST per standing order Malia Correia RN NE STEWARD Interface, Out Surescripts Prov Query - 02/16/2015 3:50 AM CST tolterodine (AKA DETROL) 2 MG tablet [Pharmacy Med Name: TOLTERODINE TARTRATE 2MG TAB] - REFILL: 6 months - PROTOCOL: Urology - Urinary Incontinence - RATIONALE: This refill should last until the patient is due for an office visit. - LAST QUALIFYING VISIT IN FAMILY PRACTICE: 07/31/2014 - NEXT SCHEDULED VISIT: None - LAST REFILLED ON: 02/08/2014, QTY: 180, Refills: 3, Sig: take 1 tab by mouth two times a day. (changed but equivalent) Powered by Tra[employer]er, Reference: [id number], 02/16/2015 3:50:37 AM MARINE STEWARD, Pool: AV REFILL RN ([id number]) NE STEWARD documented in this encounter Plan of Treatment Not on filedocumented as of this encounter Visit Diagnoses Not on filedocumented in this encounter Care Teams Manager Orange Relationship Specialty Start Date End Date Yaneth Dodd MD PCP - General 08/01/09 04/28/17 [address] [place] [address] documented as of this encounter
--- OUTSIDE RECORDS SUMMARY | 2022-01-16 08:03 | XMS_ITS | Encounter Summary ---
:1965 Author Organization [facility] Address [address], [place] [address] Care Team Providers Name Role Phone Yaneth Dodd MD Primary Care Provider Reason for Visit Reason Comments Refill traZODone (AKA DESYREL) 100 MG tablet [Pharmacy Med Name: TRAZODONE 100MG TABLET] Encounter Details Date Type Department Care Team Description 08/15/2015 Refill [facility] Briana Vazquez, Ref ill (traZODone (AKA Practice PA-C DESYREL) 100 MG tablet [address] [facility] [address] [Pharmacy Med Name: [place], [place] [address] [place], [place] TRAZODONE 100MG TABLET]) [phone] (Wo rk) Social History Tobacco Use Types Packs/Day Years Used Date Smoking Tobacco: Former Cigarettes 0.5 3 Cigars Smokeless Tobacco: Never Comments: Occasional cigar Alcohol Use Standard Drinks/Week Comments Yes 0 (1 standard drink = 0.6 oz pure alcoho l) Rare Sex Assigned at Date Recorded Not on file documented as of this encounter Nursing Notes Maryam Vasquez RN - 08/15/2015 8:39 AM CDT per standing order Maryam Vasquez RN Interface, Out Surescripts Prov Query - 08/15/2015 3:51 AM CDT traZODone (AKA DESYREL) 100 MG tablet [Pharmacy Med Name: TRAZODONE 100MG TABLET] Protocol: Antidepressants and Antianxiety -> Refill x 9 months (until due for an office visit) Last qualifying visit: 03/22/2015 (in Family Practice) Next scheduled visit: None Last ordered: 11/19/2014 (269 days ago) QTY: 180, Refills: 2, Sig: take 1-2 tablets by mouth at bedtime as needed for sleep. (unchanged) Age: 49 Powered by EximSoft-Trianz, Reference: [id number], 08/15/2015 3:50:59 AM CDT, Pool: WYLIE RN ([id number]) documented in this encounter Plan of Treatment Not on filedocumented as of this encounter Visit Diagnoses Not on filedocumented in this encounter Care Teams Unix Engineer Relationship Specialty Start Date End Date Yaneth Dodd MD PCP - General 08/01/09 04/28/17 [address] [place] [address] documented as of this encounter
--- OUTSIDE RECORDS SUMMARY | 2022-01-16 08:03 | XMS_ITS | Encounter Summary ---
:1965 Author Organization [facility] Address [address], [place] [address] Care Team Providers Name Role Phone Yaneth Dodd MD Primary Care Provider Encounter Details Date Type Department Care Team Description 05/25/2015 Notes/Orders [facility] Yaneth Dodd for Practice MD Sebastien long-term (current) [address] use of medications [place], [place] ([place] y Dx) [id number] Social History Tobacco Use Types Packs/Day Years Used Date Smoking Tobacco: Former Cigarettes 0.5 3 Cigars Smokeless Tobacco: Never Comments: Occasional cigar Alcohol Use Standard Drinks/Week Comments Yes 0 (1 standard drink = 0.6 oz pure alcoho l) Rare Sex Assigned at Date Recorded Not on file documented as of this encounter Nursing Notes Page Luther CMA - 05/27/2015 9:56 AM CDT Pt notified. Page Luther CMA 05/27/2015, 9:56 AM Interface, Out Surescripts Prov Query - 05/25/2015 3:27 AM CDT ORDER THE FOLLOWING: - CREATININE: Previously ordered on 10/22/2014 and will on 10/20/2015 - POTASSIUM: Previously ordered on 10/22/2014 and will on 10/20/2015 SCHEDULE THE FOLLOWING: - CREATININE BY: Now (Due as of 06/12/2014 for lisinopril (AKA ZESTRIL) 10 MG tablet) - POTASSIUM BY: Now (Due as of 06/12/2014 for lisinopril (AKA ZESTRIL) 10 MG tablet) - LAST QUALIFYING VISIT IN FAMILY PRACTICE: 03/22/2015 - NEXT SCHEDULED VISIT: None - NEXT LAB APPOINTMENT: None We recently received a refill request on one of your medications. While reviewing your chart, we noticed that you are going to be due for lab work within the next 3 months for the following medication: LISINOPRIL (AKA ZESTRIL) 10 MG TABLET You can schedule your appointment online at Our [employer] or by calling the appointment center at the phone number listed above. Thank you for choosing [facility]. The [facility] Nurses Powered by Qool, Reference: [id number], 05/25/2015 3:27:16 AM CDT, Pool: WYLIE RN ([id number]) documented in this encounter Plan of Treatment Not on filedocumented as of this encounter Visit Diagnoses Diagnosis Encounter for long-term (current) use of medications - Primary Encounter for long-term (current) use of other medications documented in this encounter Care Teams Layout Man Relationship Specialty Start Date End Date Yaneth Dodd MD PCP - General 08/01/09 04/28/17 [address] [place] [address] documented as of this encounter
--- OUTSIDE RECORDS SUMMARY | 2022-01-16 08:03 | XMS_ITS | Encounter Summary ---
:1965 Author Organization [facility] Address [address] [place] [address] Care Team Providers Name Role Phone Yaneth Dodd MD Primary Care Provider Encounter Details Date Type Department Care Team Description 10/20/2014 Notes/Orders [facility] Yaneth Dodd for Practice MD Sebastien long-term (current) [address] use of other [place], [place] medicat ions (Primary [id number] Dx) [phone] Social History Tobacco Use Types Packs/Day Years Used Date Smoking Tobacco: Former Cigarettes 0.5 3 Cigars Smokeless Tobacco: Never Comments: Occasional cigar Alcohol Use Standard Drinks/Week Comments Yes 0 (1 standard drink = 0.6 oz pure alcoho l) Rare Sex Assigned at Date Recorded Not on file documented as of this encounter Nursing Notes Heidi Espino CMA - 10/22/2014 9:41 AM CDT Letter sent Heidi Espino CMA Interface, Out Surescripts Prov Query - 10/20/2014 3:42 AM CDT ORDER THE FOLLOWING: - CREATININE: Pended to encounter. - POTASSIUM: Pended to encounter. SCHEDULE THE FOLLOWING: - CREATININE BY: Now [...] can schedule your lab appointment online at [email or web address] or by calling the appointment center at the phone number listed above. Thank you for choosing [facility]. The [facility] Nurses Powered by [employer], Reference: [id number], 10/20/2014 3:42:53 AM CDT, Pool: WYLIE RN ([id number]) documented in this encounter Plan of Treatment Not on filedocumented as of this encounter Visit Diagnoses Diagnosis Encounter for long-term (current) use of other medications - Primary documented in this encounter Care Teams Production Control Clerk Relationship Specialty Start Date End Date Yaneth Dodd MD PCP - General 08/01/09 04/28/17 [address] [place] [address] documented as of this encounter
--- OUTSIDE RECORDS SUMMARY | 2022-01-16 08:03 | XMS_ITS | Encounter Summary ---
:1965 Author Organization [email or web address] Address [address], [place] [address] Care Team Providers Name Role Phone Yaneth Dodd MD Primary Care Provider Reason for Visit Reason Comments Refill valACYclovir (AKA VALTREX) 5 00 MG tablet [Pharmacy Med Name: VALACYCLOVIR HCL 500MG TABLET] Encounter Details Date Type Department Care Team Description 06/16/2015 Refill [facility] Yaneth Dodd R efill (valACYclovir Practice (AKA VALTREX) 500 MG [id number] [facility] [address] tablet [Pharmacy Med [place], [place] [address] [place], [place] Name: VALACYCLOVIR HCL [phone] 500MG TABLET]) [phone] (Wo rk) Social History Tobacco Use Types Packs/Day Years Used Date Smoking Tobacco: Former Cigarettes 0.5 3 Cigars Smokeless Tobacco: Never Comments: Occasional cigar Alcohol Use Standard Drinks/Week Comments Yes 0 (1 standard drink = 0.6 oz pure alcoho l) Rare Sex Assigned at Date Recorded Not on file documented as of this encounter Nursing Notes Jessica Baez RN - 06/17/2015 10:37 AM CDT per standing order. Jessica Baez RN Interface, Out Surescripts Prov Query - 06/16/2015 3:21 AM CDT valACYclovir (AKA VALTREX) 500 MG tablet [Pharmacy Med Name: VALACYCLOVIR HCL 500MG TABLET] - REFILL: 12 months - PROTOCOL: Antiherpetics - Oral Agents - RATIONALE: This refill should last until the patient is due for an office visit. - LAST QUALIFYING VISIT IN FAMILY PRACTICE: 03/22/2015 - NEXT SCHEDULED VISIT: None - LAST REFILLED ON: 11/19/2014, QTY: 60, Refills: 6, Sig: take 1 tablet (500 mg) by oral route 2 times per day (changed but equivalent) - Cr: 0.95mg/dL on 06/17/2013 - [age] Powered by Tamago, Reference: [id number], 06/16/2015 3:21:50 AM CDT, Pool: ROB REFILL LAVERN ([id number]) Interface, Out eWise Prov Query - 06/16/2015 3:21 AM CDT The following lab order(s) may [...] on filedocumented in this encounter Care Teams Taproom Attendant Relationship Specialty Start Date End Date Yaneth Dodd MD PCP - General 08/01/09 04/28/17 [address] [place] [address] documented as of this encounter
--- OUTSIDE RECORDS SUMMARY | 2022-01-16 08:03 | XMS_ITS | Encounter Summary ---
:1965 Author Organization [facility] Address [address] [place] [address] Care Team Providers Name Role Phone Yaneth Dodd MD Primary Care Provider Reason for Visit Reason Comments Refill Encounter Details Date Type Department Care Team Description 11/18/2014 Refill [facility] Briana Vazquez PAAshleyC Refill [address] [facility] [address] [place], [place] [address] [place] [address] [phone] (Wo rk) Social History Tobacco Use Types Packs/Day Years Used Date Smoking Tobacco: Former Cigarettes 0.5 3 Cigars Smokeless Tobacco: Never Comments: Occasional cigar Alcohol Use Standard Drinks/Week Comments Yes 0 (1 standard drink = 0.6 oz pure alcoho l) Rare Sex Assigned at Date Recorded Not on file documented as of this encounter Nursing Notes Malia Correia RN - 11/19/2014 10:37 AM CDT per standing order Malia Correia RN 11/19/2014, 10:37 AM Interface, Out Surescripts Prov Query - 11/18/2014 3:35 AM CDT traZODone (AKA DESYREL) 100 MG tablet [Pharmacy Med Name: TRAZODONE 100MG TABLET] - REFILL: 9 months - PROTOCOL: Antidepressants and Antianxiety - RATIONALE: This refill should last until the patient is due for an office visit. - LAST QUALIFYING VISIT IN FAMILY PRACTICE: 07/31/2014 - NEXT SCHEDULED VISIT: None - LAST REFILLED ON: 07/20/2014, QTY: 60, Refills: 3, Sig: take 1-2 tablets by mouth at bedtime as needed for sleep. (unchanged) - [age] Powered by locr, Reference: [id number], 11/18/2014 3:35:34 AM CDT, Pool: WYLIE RN ([id number]) documented in this encounter Plan of Treatment Not on filedocumented as of this encounter Visit Diagnoses Not on filedocumented in this encounter Care Teams Merchandising Director Relationship Specialty Start Date End Date Yaneth Dodd MD PCP - General 08/01/09 04/28/17 [address] [place] [address] documented as of this encounter
--- OUTSIDE RECORDS SUMMARY | 2022-01-16 08:03 | XMS_ITS | Encounter Summary ---
:1965 Author Organization [facility] Address [address], [place] [address] Care Team Providers Name Role Phone Yaneth Dodd MD Primary Care Provider Reason for Visit Reason Comments Refill tolterodine (AKA DETROL) 2 M G tablet [Pharmacy Med Name: TOLTERODINE TARTRATE 2MG TAB] Encounter Details Date Type Department Care Team Description 09/02/[address] [facility] Yaneth Dodd R efill (tolterodine (AKA Practice MD DETROL) 2 MG tablet [address] [facility] [address] [Pharmacy Med Name: [place], [place] [address] [place], [place] TOLTERODINE TARTRATE 2MG [phone] TAB]) [phone] (Wo rk) Social History Tobacco Use Types Packs/Day Years Used Date Smoking Tobacco: Former Cigarettes 0.5 3 Cigars Smokeless Tobacco: Never Comments: Occasional cigar Alcohol Use Standard Drinks/Week Comments Yes 0 (1 standard drink = 0.6 oz pure alcoho l) Rare Sex Assigned at Date Recorded Not on file documented as of this encounter Nursing Notes Maryam Vasquez RN - 09/02/2015 11:45 AM CDT per standing order Maryam Vasquez RN Interface, Out Surescripts Prov Query - 09/02/2015 3:57 AM CDT tolterodine (AKA DETROL) 2 MG tablet [Pharmacy Med Name: TOLTERODINE TARTRATE 2MG TAB] Protocol: Urology - Urinary Incontinence -> Refill x 9 months (until due for an office visit) Last qualifying visit: 03/22/2015 (in Family Practice) Next scheduled visit: None Last ordered: 02/18/2015 (196 days ago) QTY: 180, Refills: 1, Sig: take 1 tablet by mouth two times a day. (unchanged) Powered by [employer], Reference: [id number], 09/02/2015 3:57:35 AM CDT, Pool: WYLIE RN ([id number]) documented in this encounter Plan of Treatment Not on filedocumented as of this encounter Visit Diagnoses Not on filedocumented in this encounter Care Teams Implementation Project Coordinator Relationship Specialty Start Date End Date Yaneth Dodd MD PCP - General 08/01/09 04/28/17 [address] [place] [address] documented as of this encounter
--- OUTSIDE RECORDS SUMMARY | 2022-01-16 08:04 | XMS_ITS | Encounter Summary ---
:1965 Author Organization [facility] Address [address] [place] [address] Care Team Providers Name Role Phone Yaneth Dodd MD Primary Care Provider Encounter Details Date Type Department Care Team Description 05/19/2013 Notes/Orders [facility] Yaneth Dodd [facility] refill Practice MD Sebastien (Primary Dx) [address] [address] [phone] Social History Tobacco Use Types Packs/Day Years Used Date Smoking Tobacco: Former Cigarettes 0.5 3 Cigars Smokeless Tobacco: Never Comments: Occasional cigar Alcohol Use Standard Drinks/Week Comments Yes 0 (1 standard drink = 0.6 oz pure alcoho l) Rare Sex Assigned at Date Recorded Not on file documented as of this encounter Nursing Notes Rosalio Luther - 05/24/2013 11:14 AM CDT Letter was sent to patient. Rosalio Luther CMA 05/24/2013, 11:14 AM Interface, Out Surescripts Prov Query - 05/19/2013 3:31 AM CDT - Note on ALANINE AMINOTRANSFERASE (ALT): Ignore ALT check if patient has had an AST reading in the last 12 months. SCHEDULE THE FOLLOWING: - OFFICE VISIT BY: Now (Due as of 05/07/2013) - ALANINE AMINOTRANSFERASE (ALT) BY: Now (Due as of 05/01/2013 for fenofibrate (AKA TRIGLIDE) 160 MGtablet) - LIPID PANEL (12 HR. FASTING) BY: Now (Due as of 05/01/2013 for fenofibrate (AKA TRIGLIDE) 160 MG tablet) - POTASSIUM BY: Now (Due as of 05/01/2013 for lisinopril (AKA ZESTRIL) 20 MG tablet) - CREATININE BY: Now (Due as of 05/01/2013 for lisinopril (AKA ZESTRIL) 20 MG tablet) - BLOOD PRESSURE BY: 07/02/2013 (Coming due as of 07/02/2013 for lisinopril (AKA ZESTRIL) 20 MG tablet) - LAST PRIMARY CARE VISIT: 05/12/2012 - NEXT PRIMARY CARE VISIT: None - NEXT LAB APPOINTMENT: None Powered by Proacta, Reference: [id number], 05/19/2013 3:31:32 AM CDT Interface, Out [place] Query - 05/19/2013 3:31 AM CDT The following lab order(s) may be associated with the Patient Result Comment below: BASIC METABOLIC PANEL Your labs are normal. documented in this encounter Plan of Treatment Not on filedocumented as of this encounter Results (ABNORMAL) ALT (SGPT) (06/17/2013 10:04 AM CDT) P athologist Signature ALT (SGPT) 91 (H) 0 - 69 U/L [facility] Specimen Anatomical Collection Method Collection Time Receive d Time (Source) Location / / Volume Laterality 06/17/2013 10:04 06/17/2013 AM CDT 10:07 AM CDT Narrative [facility] - 06/19/2013 2:35 PM C DT Performed at [facility], [address] [place] [address] ??[phone] Yaneth Dodd MD LAB_1 Performing Organization Address [facility] Phon e Number [facility] [phone] (ABNORMAL) LIPID PANEL AND DIRECT LDL(IF NEEDED) (06/17/2013 10:04 AM CDT) Patholo gist Method Time Signature Hours Fasting 12 hours [facility] Cholesterol 203 (H) 0 - 199 [facility] mg/dl [facility] Triglyceride 109 0 - 149 [facility] mg/dl [facility] HDL 17 (L) >40 mg/dl [facility] LDL, Calc. 164 (H) 0 - 129 [facility] mg/dl [facility] Non HDL Chol, 186 mg/dl [facility] Calc [facility] Specimen Anatomical Collection Method Collection Time Receive d Time (Source) Location / / Volume Laterality 06/17/2013 10:04 06/17/2013 AM CDT 10:07 AM CDT Narrative [facility] - 06/19/2013 2:35 PM C DT Performed at [facility], [address] [place] [address] ??[phone] Yaneth Dodd MD LAB_1 Performing Organization Address [facility] Phon e Number [facility] [phone] CREATININE / GFR (06/17/2013 10:04 AM CDT) Analysis Performed At Patho logist Time Signature Creatinine 0.95 0.66 - [facility] 1.25 mg/dl [facility] GFR, Estimated >60.0 >60 [facility] ml/min/1.7 [facility] 3m2 GFR, Est., If >60.0 >60 [facility] Black ml/min/1.7 [facility]ATORIES 3m2 Specimen Anatomical Collection Method Collection Time Receive d Time (Source) Location / / Volume Laterality 06/17/2013 10:04 06/17/2013 AM CDT 10:07 AM CDT Narrative [facility] - 06/19/2013 2:35 PM C DT Performed at [facility], [address] [place] [address] ??[phone] Yaneth Dodd MD LAB_1 Performing Organization Address [place]/[facility] Code Phon e Number [facility] [phone] POTASSIUM (06/17/2013 10:04 AM CDT) athologist Signature Potassium 4.4 3.5 - 5.3 [facility] mmol/L Specimen Anatomical Collection Method Collection Time Receive d Time (Source) Location / / Volume Laterality 06/17/2013 10:04 06/17/2013 AM CDT 10:07 AM CDT Narrative [facility] - 06/19/2013 2:35 PM C DT Performed at [facility], [address] [place] [address] ??[phone] Yaneth Dodd MD LAB_1 Performing Organization Address [facility] Code Phon e Number [facility] [phone] documented in this encounter Visit Diagnoses Diagnosis Medication refill - Primary Issue of repeat prescriptions Medication refill Issue of repeat prescriptions documented in this encounter Care Teams Sharepoint Administrator Relationship Specialty Start Date End Date Yaneth Dodd MD PCP - General 08/01/09 04/28/17 [address] [place] [address] documented as of this encounter
--- OUTSIDE RECORDS SUMMARY | 2022-01-16 08:04 | XMS_ITS | Encounter Summary ---
:1965 Author Organization [facility] Address [address] [place] [address] Care Team Providers Name Role Phone Yaneth Dodd MD Primary Care Provider Reason for Visit Reason Comments Refill Encounter Details Date Type Department Care Team Description 06/30/2013 Refill [facility] Yaneth Dodd MD Refill [address] [facility] [address] [place], [place] [address] [place] [address] [phone] (Wo rk) Social History Tobacco Use Types Packs/Day Years Used Date Smoking Tobacco: Former Cigarettes 0.5 3 Cigars Smokeless Tobacco: Never Comments: Occasional cigar Alcohol Use Standard Drinks/Week Comments Yes 0 (1 standard drink = 0.6 oz pure alcoho l) Rare Sex Assigned at Date Recorded Not on file documented as of this encounter Nursing Notes Uvaldo, Jose Juan iSites Prov Query - 06/30/2013 10:25 AM CDT The following is the most recent Careplan note pulled in by Bib: The patient suffers from chronic low back pain. Currently, he uses 30 tablets of hydrocodone 5-325 mg every month. He has been very compliant. Uvaldo, Out iSites Prov Query - 06/30/2013 10:25 AM CDT HYDROcodone-acetaminophen (AKA NORCO) 5-325 MG tablet [Pharmacy Med Name: HYDROCODONE-APAP 5-325 TABLET] - WARNING: The requested medication was previously set to Print on 05/30/2013. - VIOLATION: Medication is not assigned to a protocol. - PROTOCOL: None Exists (Controlled Substance) - LAST PRIMARY CARE VISIT: 05/12/2012 - NEXT PRIMARY CARE VISIT: None - LAST REFILLED: Not available (Last set to Print on 05/30/2013.) Powered by [employer], Reference: [id number], 06/30/2013 10:25:43 AM CDT documented in this encounter Plan of Treatment Not on filedocumented as of this encounter Visit Diagnoses Not on filedocumented in this encounter Care Teams Siding Stapler Relationship Specialty Start Date End Date Yaneth Dodd MD PCP - General 08/01/09 04/28/17 [address] [place] [address] documented as of this encounter
--- OUTSIDE RECORDS SUMMARY | 2022-01-16 08:04 | XMS_ITS | Encounter Summary ---
:1965 Author Organization [facility] Address [address] [place] [address] Care Team Providers Name Role Phone Yaneth Dodd MD Primary Care Provider Reason for Visit Reason Comments Refill Encounter Details Date Type Department Care Team Description 02/13/2014 Refill [facility] Yaneth Dodd MD Refill [address] [facility] [address] [place], [place] [address] [place] [address] [phone] (Wo rk) Social History Tobacco Use Types Packs/Day Years Used Date Smoking Tobacco: Former Cigarettes 0.5 3 Cigars Smokeless Tobacco: Never Comments: Occasional cigar Alcohol Use Standard Drinks/Week Comments Yes 0 (1 standard drink = 0.6 oz pure alcoho l) Rare Sex Assigned at Date Recorded Not on file documented as of this encounter Nursing Notes Radha Kilgore RN - 02/14/2014 9:45 AM CST Refilled per standing orders. Radha Kilgore R.N. PASSER Interface, Out Surescripts Prov Query - 02/13/2014 3:55 AM CST valACYclovir (AKA VALTREX) 500 MG tablet [Pharmacy Med Name: VALACYCLOVIR HCL 500MG TABLET] - REFILL: 9 months (manual update required, due to unreadable sig) - PROTOCOL: Antivirals - Herpes Simplex Virus (HSV) - RATIONALE: This refill should last until the patient is due for an office visit. - LAST QUALIFYING VISIT IN FAMILY PRACTICE: 11/15/2013 - NEXT SCHEDULED VISIT: None - LAST REFILLED ON: 11/08/2013, QTY: 180, Refills: 0, Sig: take 1 tab by mouth two times a day. (changed) - Renal Insufficiency: false Powered by [employer], Reference: [id number], 02/13/2014 3:56:55 AM MEAT PASSER, Pool: WYLIE RN ([id number]) PASSER documented in this encounter Plan of Treatment Not on filedocumented as of this encounter Visit Diagnoses Not on filedocumented in this encounter Care Teams Building Principal Relationship Specialty Start Date End Date Yaneth Dodd MD PCP - General 08/01/09 04/28/17 [address] [place] [address] documented as of this encounter
--- OUTSIDE RECORDS SUMMARY | 2022-01-16 08:04 | XMS_ITS | Encounter Summary ---
:1965 Author Organization [facility] Address [address] [place] [address] Care Team Providers Name Role Phone Yaneth Dodd MD Primary Care Provider Reason for Visit Reason Comments Refill Encounter Details Date Type Department Care Team Description 06/05/2013 Refill [facility] Yaneth Dodd MD Refill [address] [facility] [address] [place], [place] [address] [place] [address] [phone] (Wo rk) Social History Tobacco Use Types Packs/Day Years Used Date Smoking Tobacco: Former Cigarettes 0.5 3 Cigars Smokeless Tobacco: Never Comments: Occasional cigar Alcohol Use Standard Drinks/Week Comments Yes 0 (1 standard drink = 0.6 oz pure alcoho l) Rare Sex Assigned at Date Recorded Not on file documented as of this encounter Nursing Notes Interface, Out Surescripts Prov Query - 06/05/2013 3:33 AM CDT diclofenac (AKA VOLTAREN) 50 MG enteric coated tablet [Pharmacy Med Name: DICLOFENAC SOD EC 50MG TAB] - VIOLATION: Medication is not assigned to a protocol. - PROTOCOL: None Exists - LAST PRIMARY CARE VISIT: 05/12/2012 - NEXT PRIMARY CARE VISIT: None - LAST REFILLED ON: 02/23/2013, QTY: 180, Refills: 0, Sig: take 1 tablet by mouth two times a day. (unchanged) Powered by [employer], Reference: [id number], 06/05/2013 3:34:44 AM CDT documented in this encounter Plan of Treatment Not on filedocumented as of this encounter Visit Diagnoses Not on filedocumented in this encounter Care Teams Shuttle Operator Relationship Specialty Start Date End Date Yaneth Dodd MD PCP - General 08/01/09 04/28/17 [address] [place] [address] documented as of this encounter
--- OUTSIDE RECORDS SUMMARY | 2022-01-16 08:04 | XMS_ITS | Encounter Summary ---
:1965 Author Organization [facility] Address [address] [place] [address] Care Team Providers Name Role Phone Yaneth Dodd MD Primary Care Provider Reason for Visit Reason Comments Refill Encounter Details Date Type Department Care Team Description 03/10/2014 Refill [facility] Yaneth Dodd MD Refill [address] [facility] [address] [place], [place] [address] [place] [address] [phone] (Wo rk) Social History Tobacco Use Types Packs/Day Years Used Date Smoking Tobacco: Former Cigarettes 0.5 3 Cigars Smokeless Tobacco: Never Comments: Occasional cigar Alcohol Use Standard Drinks/Week Comments Yes 0 (1 standard drink = 0.6 oz pure alcoho l) Rare Sex Assigned at Date Recorded Not on file documented as of this encounter Nursing Notes Interface, Out Surescripts Prov Query - 03/10/2014 1:28 PM CST traZODone (AKA DESYREL) 100 MG tablet [Pharmacy Med Name: TRAZODONE 100MG TABLET] - WARNING: Trazodone can be refilled if being used as a sleep aid, for patients > 18 years old, and if taking a dose <= 100mg. Otherwise, send to the provider for review. - REFILL: 9 months (if warnings resolved) - PROTOCOL: Antidepressants - trazodone - RATIONALE: This refill should last until the patient is due for an office visit. - LAST QUALIFYING VISIT IN FAMILY PRACTICE: 11/15/2013 - NEXT SCHEDULED VISIT: None - LAST REFILLED ON: 11/15/2013, QTY: 60, Refills: 3, Sig: take 1-2 tabs by mouth at bedtime as needed for sleep. (unchanged) Powered by [employer], Reference: [id number], 03/10/2014 1:28:50 PM DREDGE PUMP OPERATOR, Pool: ROB REFILL RN ([id number]) GE PUMP OPERATOR documented in this encounter Plan of Treatment Not on filedocumented as of this encounter Visit Diagnoses Not on filedocumented in this encounter Care Teams Work Distributor Relationship Specialty Start Date End Date Yaneth Dodd MD PCP - General 08/01/09 04/28/17 [address] [place] [address] documented as of this encounter
--- OUTSIDE RECORDS SUMMARY | 2022-01-16 08:04 | XMS_ITS | Encounter Summary ---
:1965 Author Organization [facility] Address [address] [place] [address] Care Team Providers Name Role Phone Yaneth Dodd MD Primary Care Provider Reason for Visit Reason Comments Refill Encounter Details Date Type Department Care Team Description 06/20/2014 Refill [facility] Yaneth Dodd MD Refill [address] [facility] [address] [place], [place] [address] [place] [address] [phone] (Wo rk) Social History Tobacco Use Types Packs/Day Years Used Date Smoking Tobacco: Former Cigarettes 0.5 3 Cigars Smokeless Tobacco: Never Comments: Occasional cigar Alcohol Use Standard Drinks/Week Comments Yes 0 (1 standard drink = 0.6 oz pure alcoho l) Rare Sex Assigned at Date Recorded Not on file documented as of this encounter Nursing Notes Interface, Out Surescripts Prov Query - 06/20/2014 3:16 AM CDT diclofenac (AKA VOLTAREN) 50 MG enteric coated tablet [Pharmacy Med Name: DICLOFENAC SOD EC 50MG TAB] - VIOLATION: Medication is not assigned to a protocol. - PROTOCOL: None Exists - LAST QUALIFYING VISIT IN FAMILY PRACTICE: 11/15/2013 - NEXT SCHEDULED VISIT: None - LAST REFILLED ON: 04/11/2014, QTY: 60, Refills: 1, Sig: take 1 tablet by mouth two times a day. (unchanged) Powered by [employer], Reference: [id number], 06/20/2014 3:16:43 AM CDT, Pool: WYLIE RN ([id number]) documented in this encounter Plan of Treatment Not on filedocumented as of this encounter Visit Diagnoses Not on filedocumented in this encounter Care Teams Dental Equipment Technician Relationship Specialty Start Date End Date Yaneth Dodd MD PCP - General 08/01/09 04/28/17 [address] [place] [address] documented as of this encounter
--- OUTSIDE RECORDS SUMMARY | 2022-01-16 08:04 | XMS_ITS | Encounter Summary ---
:1965 Author Organization [facility] Address [address] [place] [address] Care Team Providers Name Role Phone Yaneth Dodd MD Primary Care Provider Reason for Visit Reason Comments Refill Encounter Details Date Type Department Care Team Description 08/29/2013 Refill [facility] Yaneth Dodd MD Refill [address] [facility] [address] [place], [place] [address] [place] [address] [phone] (Wo rk) Social History Tobacco Use Types Packs/Day Years Used Date Smoking Tobacco: Former Cigarettes 0.5 3 Cigars Smokeless Tobacco: Never Comments: Occasional cigar Alcohol Use Standard Drinks/Week Comments Yes 0 (1 standard drink = 0.6 oz pure alcoho l) Rare Sex Assigned at Date Recorded Not on file documented as of this encounter Progress Notes Jose Juan Bailon [employer] Prov Query - 08/29/2013 3:28 PM CDT Order(s) created erroneously. Erroneous order ID: [id number] Order moved by: ANTONIO Donay Order move date/time: 08/29/2013 3:28 PM Source Patient: [id number] Source Contact: 08/29/2013 Destination Patient: [id number] Destination Contact: 08/29/2013 documented in this encounter Nursing Notes 08/29/2013 3:28 PM CDT diclofenac (AKA VOLTAREN) 50 MG enteric coated tablet [Pharmacy Med Name: DICLOFENAC SOD EC 50MG TAB] - VIOLATION #1: Medication is not assigned to a protocol. - VIOLATION #2: An office visit is overdue (performed 16 months ago, required every 12 months). - PROTOCOL: None Exists - LAST PRIMARY CARE VISIT: 05/12/2012 - NEXT PRIMARY CARE VISIT: None - LAST REFILLED ON: 06/05/2013, QTY: 180, Refills: 0, Sig: take 1 tablet by mouth two times a day. (unchanged) Powered by [employer], Reference: [id number], 08/29/2013 3:32:01 PM CDT documented in this encounter Plan of Treatment Not on filedocumented as of this encounter Visit Diagnoses Not on filedocumented in this encounter Care Teams Gas Welding Machine Operator Relationship Specialty Start Date End Date Yaneth Dodd MD PCP - General 08/01/09 04/28/17 [address] [place] [address] documented as of this encounter
--- OUTSIDE RECORDS SUMMARY | 2022-01-16 08:04 | XMS_ITS | Encounter Summary ---
:1965 Author Organization [employer] Address [address] [place] [address] Care Team Providers Name Role Phone Yaneth Dodd MD Primary Care Provider Encounter Details Date Type Department Care Team Description 11/15/2013 Orders Only [facility] Other specified [address] [facility] pre-operative examination [place], [place] [address] Social History Tobacco Use [...] Name Priority Date/Time Associated Diagnosis Comme nts COMPLETE BLOOD Routine 11/15/2013 10:41 AM Other specified Res ults for this COUNT-NO DIFF CDT pre-operative procedure are in examination the results section. UA MICRO IF Routine 11/15/2013 10:41 AM Other specified Resul ts for this CDT pre-operative procedure are in examination the results section. UA MICRO Routine 11/15/2013 10:41 AM Results for this CDT procedure are i n the results section. documented in this encounter Results UA MICRO (11/15/2013 10:41 AM CDT) P athologist Signature RBC'S 0-3 0 - 3 /hpf [facility] WBC'S 0 0 - 5 /hpf [facility] Epith, 0 /hpf [facility] Bact 0 [facility] Casts 0 /lpf [facility] Specimen Anatomical Collection Method Collection Time Receive d Time (Source) Location / / Volume Laterality 11/15/2013 10:41 11/15/2013 AM CDT 10:42 AM CDT Narrative [facility] - 11/15/2013 11:29 AM CDT Performed at [facility], [address] [place], [place] [id number] Yaneth Dodd MD LAB_1 [address]forming [address] [facility] Phon e Number [facility] [phone] (ABNORMAL) UA MICRO IF (11/15/2013 10:41 AM CDT) Patholo gist Method Time Signature Urine Color Yellow [facility] Urine Clarity Clear [facility] Sp Gr 1.010 1.005 - [facility] Leuk Negative NEG [facility] Nitr Negative NEG [facility] pH 6.0 4.5 - 8.0 [facility] Prot Negative NEG mg/dl [facility] Gluc Negative NEG [facility] Ket Negative NEG [facility] Urob 0.2 0.2 - 1.0 [facility] EU/dl [facility] Bili Negative NEG [facility] Blood Tr (A) NEG [facility] Specimen Anatomical Collection Method Collection Time Receive d Time (Source) Location / / Volume Laterality 11/15/2013 10:41 11/15/2013 AM CDT 10:42 AM CDT Narrative [facility] - 11/15/2013 11:28 AM CDT Performed at [facility], [address] [place], [place] [address] Yaneth Dodd MD LAB_1 Performing Organization Address [facility] Phon e Number [facility] [phone] (ABNORMAL) HEMOGRAM/PLTS (11/15/2013 10:41 AM CDT) P athologist Signature WBC 5.0 4.0 - 11.0 [facility] k/ul [facility] RBC 5.77 4.5 - 5.9 [facility] M[facility]ul [facility] Hemoglobin 18.0 (H) 13.5 - [facility] 17.5 g/dl [facility] HCT 52.4 41.0 - [facility] 53.0 % [facility] MCV 90.8 80 - 100 [facility] fl [facility] MCH 31.2 26 - 34 pg [facility] MCHC 34.4 32 - 36 [facility] g/dl [facility] RDW 12.6 11.5 - [facility] 14.5 % [facility] Platelets 167 150 - 450 [facility] k/ul [facility] Specimen Anatomical Collection Method Collection Time Receive d Time (Source) Location / / Volume Laterality 11/15/2013 10:41 11/15/2013 AM CDT 10:42 AM CDT Narrative [facility] - 11/15/2013 3:20 PM C DT Performed at [facility], [address] [place] [id number] Yaneth Dodd MD LAB_1 Performing Organization Address City/State/ZIP Code Phon e Number [facility] [phone] documented in this encounter Visit Diagnoses Diagnosis Other specified pre-operative examinatio n documented in this encounter Care Teams Shade Bander Relationship Specialty Start Date End Date Yaneth Dodd MD PCP - General 08/01/09 04/28/17 [address] [place] [address] documented as of this encounter
--- OUTSIDE RECORDS SUMMARY | 2022-01-16 08:04 | XMS_ITS | Encounter Summary ---
:1965 Author Organization [facility] Address [address] [place] [address] Care Team Providers Name Role Phone Yaneth Dodd MD Primary Care Provider Reason for Visit Reason Comments Refill Encounter Details Date Type Department Care Team Description 05/19/2013 Refill [facility] Yaneth Dodd MD Refill [address] [facility] [address] [place] [address] [place] [address] [phone] (Wo rk) Social History Tobacco Use Types Packs/Day Years Used Date Smoking Tobacco: Former Cigarettes 0.5 3 Cigars Smokeless Tobacco: Never Comments: Occasional cigar Alcohol Use Standard Drinks/Week Comments Yes 0 (1 standard drink = 0.6 oz pure alcoho l) Rare Sex Assigned at Date Recorded Not on file documented as of this encounter Nursing Notes Jessica Baez RN - 05/19/2013 10:03 AM CDT per standing order. Jessica Baez RN Interface, Out Surescripts Prov Query - 05/19/2013 3:31 AM CDT lisinopril (AKA ZESTRIL) 20 MG tablet [Pharmacy Med Name: LISINOPRIL 20MG TABLET] - REFILL: 3 months - PROTOCOL: Rylan Inhibitors - RATIONALE: This is a courtesy refill. Patient is overdue for an office visit, Cr check and K check. This will be the last refill authorized by the protocol. - LAST PRIMARY CARE VISIT: 05/12/2012 - NEXT PRIMARY CARE VISIT: None - LAST REFILLED ON: 05/03/2012, QTY: 30, Refills: 12, Sig: take 1 tab by mouth daily. (changed but equivalent) - SBP: 134.0mm Hg on 07/07/2012 - DBP: 75.0mm Hg on 07/07/2012 - Cr: 1.08mg/dL on 05/06/2012 - K: 4.7mEq/L on 05/06/2012 ADDITIONAL SCHEDULING ACTIONS TAKEN: - OFFICE VISIT (Sent to [facility]) - ALT for fenofibrate (AKA TRIGLIDE) 160 MG tablet (Sent to [employer] REFILLWIZARD RE DYE HAND POOL) - LIPID PANEL (12 HR. FASTING) for fenofibrate (AKA TRIGLIDE) 160 MG tablet (Sent to HP REFILLWIZARDCMA POOL) - K for lisinopril (AKA ZESTRIL) 20 MG tablet (Sent to [employer] REFILLWIZARD RE DYE HAND POOL) - CR for lisinopril (AKA ZESTRIL) 20 MG tablet (Sent to [employer] REFILLWIZARD RE DYE HAND POOL) - BLOOD PRESSURE for lisinopril (AKA ZESTRIL) 20 MG tablet (Sent to [employer] REFILLWIZARD RE DYE HAND POOL) Powered by [employer], Reference: [id number], 05/19/2013 3:31:32 AM CDT Interface, Out pic5 Prov Query - 05/19/2013 3:31 AM CDT The following lab order(s) may be associated with the Patient Result Comment below: BASIC METABOLIC PANEL Your labs are normal. documented in this encounter Plan of Treatment Not on filedocumented as of this encounter Visit Diagnoses Not on filedocumented in this encounter Care Teams Artisan Plasterer Relationship Specialty Start Date End Date Yaneth Dodd MD PCP - General 08/01/09 04/28/17 [address] [place] [address] documented as of this encounter
--- OUTSIDE RECORDS SUMMARY | 2022-01-16 08:04 | XMS_ITS | Encounter Summary ---
:1965 [address] [facility] Address [address] [place] [address] Care Team Providers Name Role Phone Yaneth Dodd MD Primary Care Provider Reason for Visit Reason Comments Refill Encounter Details Date Type Department Care Team Description 04/11/2014 Refill [facility] Yaneth Dodd MD Refill [address] [facility] [address] [place], [place] [address] [place] [address] [phone] (Wo rk) Social History Tobacco Use Types Packs/Day Years Used Date Smoking Tobacco: Former Cigarettes 0.5 3 Cigars Smokeless Tobacco: Never Comments: Occasional cigar Alcohol Use Standard Drinks/Week Comments Yes 0 (1 standard drink = 0.6 oz pure alcoho l) Rare Sex Assigned at Date Recorded Not on file documented as of this encounter Nursing Notes Interface, Out Surescripts Prov Query - 04/11/2014 3:46 AM CST diclofenac (AKA VOLTAREN) 50 MG enteric coated tablet [Pharmacy Med Name: DICLOFENAC SOD EC 50MG TAB] - VIOLATION: Medication is not assigned to a protocol. - PROTOCOL: None Exists - LAST QUALIFYING VISIT IN FAMILY PRACTICE: 11/15/2013 - NEXT SCHEDULED VISIT: None - LAST REFILLED ON: 02/05/2014, QTY: 60, Refills: 1, Sig: take 1 tablet by mouth two times a day. (unchanged) Powered by [employer], Reference: [id number], 04/11/2014 3:49:36 AM Hector CENTENO: WYLIE RN ([id number]) BO documented in this encounter Plan of Treatment Not on filedocumented as of this encounter Visit Diagnoses Not on filedocumented in this encounter Care Teams Finisher Brush Relationship Specialty Start Date End Date Yaneth Dodd MD PCP - General 08/01/09 04/28/17 [address] [place] [address] documented as of this encounter
--- OUTSIDE RECORDS SUMMARY | 2022-01-16 08:04 | XMS_ITS | Encounter Summary ---
:1965 Author Organization [facility] Address [address] [place] [address] Care Team Providers Name Role Phone Yaneth Strong MD Primary Care Provider Reason for Visit Reason Onset Date Comments RESULTS, TEST 07/04/2013 Encounter Details Date Type Department Care Team Description 07/04/2013 Telephone [facility] Chris Strong MD RESULTS, TEST Practice [address] [facility] [address] [place] [address] [place] [address] [phone] Social History Tobacco Use Types Packs/Day Years Used Date Smoking Tobacco: Former Cigarettes 0.5 3 Cigars Smokeless Tobacco: Never Comments: Occasional cigar Alcohol Use Standard Drinks/Week Comments Yes 0 (1 standard drink = 0.6 oz pure alcoho l) Rare Sex Assigned at Date Recorded Not on file documented as of this encounter Nursing Notes Amy Mukherjee LPN - 07/04/2013 11:49 AM CDT I have reviewed the provider's instructions with the patient, answering all questions to his satisfaction. He will follow up. Amy Mukherjee LPN 07/04/2013, 11:50 AM Amy Mukherjee LPN - 07/04/2013 11:06 AM CDT Message copied by AMY MUKHERJEE on WedJul 04, 2013 11:06 AM ------ Message from: YANETH STRONG Created: WedJul 04, 2013 10:18 AM Please call pt. Let him know his liver test continues to be elevated. I would like him to make an appt so that we can discuss further workup. ------ documented in this encounter Plan of Treatment Not on filedocumented as of this encounter Visit Diagnoses Not on filedocumented in this encounter Care Teams Roll Winder Relationship Specialty Start Date End Date Yaneth Strong MD PCP - General 08/01/09 04/28/17 [address] [place] [address] documented as of this encounter
--- OUTSIDE RECORDS SUMMARY | 2022-01-16 08:04 | XMS_ITS | Encounter Summary ---
:1965 Author Organization [facility] Address [address] [place] [address] Care Team Providers Name Role Phone Yaneth Dodd MD Primary Care Provider Reason for Visit Reason Comments Refill Encounter Details Date Type Department Care Team Description 05/30/2013 Refill [facility] Yaneth Dodd MD Refill [address] [facility] [address] [place], [place] [address] [place] [address] [phone] (Wo rk) Social History Tobacco Use Types Packs/Day Years Used Date Smoking Tobacco: Former Cigarettes 0.5 3 Cigars Smokeless Tobacco: Never Comments: Occasional cigar Alcohol Use Standard Drinks/Week Comments Yes 0 (1 standard drink = 0.6 oz pure alcoho l) Rare Sex Assigned at Date Recorded Not on file documented as of this encounter Nursing Notes Interface, Out Surescripts Prov Query - 05/30/2013 2:14 PM CDT HYDROcodone-acetaminophen (AKA NORCO) 5-325 MG tablet [Pharmacy Med Name: HYDROCODONE-APAP 5-325 TABLET] - WARNING: The requested medication was previously set to Print on 05/04/2013. - VIOLATION: Medication is not assigned to a protocol. - PROTOCOL: None Exists (Controlled Substance) - LAST PRIMARY CARE VISIT: 05/12/2012 - NEXT PRIMARY CARE VISIT: None - LAST REFILLED: Not available (Last set to Print on 05/04/2013.) Powered by [employer], Reference: [id number], 05/30/2013 2:14:53 PM CDT Interface, Out GeeYuu Query - 05/30/2013 2:14 PM CDTThe following is the most recent Careplan note pulled in byBib: The patient suffers from chronic low back pain. Currently, he uses 30tablets of hydrocodone 5-325 mg every month. He has been very compliant. documented in this encounter Plan of Treatment Not on filedocumented as of this encounter Visit Diagnoses Not on filedocumented in this encounter Care Teams Vice President Corporate Communications Relationship Specialty Start Date End Date Yaneth Dodd MD PCP - General 08/01/09 04/28/17 [address] [place] [address] documented as of this encounter
--- OUTSIDE RECORDS SUMMARY | 2022-01-16 08:04 | XMS_ITS | Encounter Summary ---
:1965 Author Organization [employer] Address [address] [place] [address] Care Team Providers Name Role Phone Yaneth Dodd MD Primary Care Provider Reason for Visit Reason Comments Refill Encounter Details Date Type Department Care Team Description 01/06/2014 Refill [facility] Briana Vazquez, PAAshleyC Refill [address] [facility] [address] [place], [place] [address] [place] [address] [phone] (Wo rk) Social History Tobacco Use Types Packs/Day Years Used Date Smoking Tobacco: Former Cigarettes 0.5 3 Cigars Smokeless Tobacco: Never Comments: Occasional cigar Alcohol Use Standard Drinks/Week Comments Yes 0 (1 standard drink = 0.6 oz pure alcoho l) Rare Sex Assigned at Date Recorded Not on file documented as of this encounter Nursing Notes 01/06/2014 3:40 AM CDT diclofenac (AKA VOLTAREN) 50 MG enteric coated tablet [Pharmacy Med Name: DICLOFENAC SOD EC 50MG TAB] - VIOLATION: Medication is not assigned to a protocol. - PROTOCOL: None Exists - LAST QUALIFYING VISIT IN FAMILY PRACTICE: 11/15/2013 - NEXT SCHEDULED VISIT: None - LAST REFILLED ON: 12/07/2013, QTY: 60, Refills: 0, Sig: take 1 tablet by mouth two times a day. (unchanged) Powered by [employer], Reference: [id number], 01/06/2014 3:40:34 AM ZIAT, Hector: WYLIE RN ([id number]) CRIB ATTENDANT documented in this encounter Plan of Treatment Not on filedocumented as of this encounter Visit Diagnoses Not on filedocumented in this encounter Care Teams Diesel Engine Mechanic Relationship Specialty Start Date End Date Yaneth Dodd MD PCP - General 08/01/09 04/28/17 [address] [place] [address] documented as of this encounter
--- OUTSIDE RECORDS SUMMARY | 2022-01-16 08:04 | XMS_ITS | Encounter Summary ---
:1965 Author [facility] Address [address] [address] Care Team Providers Name Role Phone Yaneth Dodd MD Primary Care Provider Encounter Details Date Type Department Care Team Description 06/30/2013 Orders Only [facility] [place] [address] [place], [place] [address] Social History Tobacco Use Types Packs/Day Years Used Date Smoking Tobacco: Former Cigarettes 0.5 3 Cigars Smokeless Tobacco: Never Comments: Occasional cigar Alcohol Use Standard Drinks/Week Comments Yes 0 (1 standard drink = 0.6 oz pure alcoho l) Rare Sex Assigned at Date Recorded Not on file documented as of this encounter Progress Notes Yaneth Dodd MD - 07/04/2013 10:18 AM CDT Quick Note: Please call pt. Let him know his liver test continues to be elevated. I would like him to make an appt so that we can discuss further workup. documented in this encounter Plan of Treatment Not on filedocumented as of this encounter Procedures Procedure Name Priority Date/Time Associated Diagnosis Comme nts AST Routine 06/30/2013 4:13 PM Follow up Results f or this CDT procedure are i n the results section . documented in this encounter Results (ABNORMAL) SGOT-AST (06/30/2013 4:13 PM CDT) athologist Signature AST (SGOT) 95 (H) 0 - 66 U/L [facility] Comment: PLEASE NOTE CHANGE IN REFERENCE RANGE Specimen Anatomical Collection Method Collection Time Receive d Time (Source) Location / / Volume Laterality 06/30/2013 4:13 PM 4 4:14 CDT PM CDT Narrative [facility] - 06/30/2013 7:04 PM C DT Performed at [facility], [address] [place] [address] ??[id number] Yaneth Dodd MD LAB_1 Performing Organization Address City/State/[facility] Code Phon e Number [facility] [phone] documented in this encounter Visit Diagnoses Diagnosis Follow up documented in this encounter Care Teams Marble Ceiling Installer Relationship Specialty Start Date End Date Yaneth Dodd MD PCP - General 08/01/09 04/28/17 [address] [place] [address] documented as of this encounter
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
--- OUTSIDE RECORDS SUMMARY | 2022-01-16 08:04 | XMS_ITS | Encounter Summary ---
:1965 Author Organization [facility] Address [address] [place] [address] Care Team Providers Name Role Phone Yaneth Dodd MD Primary Care Provider Encounter Details Date Type Department Care Team Description 06/20/2013 Orders Only [facility] Yaneth Dodd ow (Primary Dx) Practice MD Sebastien [id number] [place] [address] [place], [place] [phone] Social History Tobacco Use Types Packs/Day Years [...] filedocumented as of this encounter Results (ABNORMAL) SGOT-AST (06/30/2013 4:13 PM CDT) P athologist Signature AST (SGOT) 95 (H) 0 - 66 U/L [facility] Comment: PLEASE NOTE CHANGE IN REFERENCE RANGE Specimen Anatomical Collection Method Collection Time Receive d Time (Source) Location / / Volume Laterality 06/30/2013 4:13 PM 4 4:14 CDT PM CDT Narrative [facility] - 06/30/2013 7:04 PM C DT Performed at [facility], [address] [place] [phone] Yaneth Dodd MD LAB_1 Performing Organization Address City/State/ZIP Code Phon e Number [facility] [phone] documented in this encounter Visit Diagnoses Diagnosis Follow up - Primary Follow up documented in this encounter Care Teams General Office Worker Relationship Specialty Start Date End Date Yaneth Dodd MD PCP - General 08/01/09 04/28/17 [address] [place], [place] [id number] documented as of this encounter
--- OUTSIDE RECORDS SUMMARY | 2022-01-16 08:04 | XMS_ITS | Encounter Summary ---
:1965 Author Organization [facility] Address [address] [place] [address] Care Team Providers Name Role Phone Yaneth Dodd MD Primary Care Provider Encounter Details Date Type Department Care Team Description 06/19/2013 Orders Only [facility] Yaneth Dodd community [facility] laboratory Practice MD Sebastien test (Primary Dx) [address] [facility] [place] [address] [place], [place] [address] [place], [place] [phone] Social History Tobacco Use Types Packs/Day Years [...] as of this encounter Visit Diagnoses Diagnosis Abnormal laboratory test - Primary Other abnormal clinical finding documented in this encounter Care Teams Windows Server Support Technician Relationship Specialty Start Date End Date Yaneth Dodd MD PCP - General 08/01/09 04/28/17 [address] [place], [place] [phone] documented as of this encounter
--- OUTSIDE RECORDS SUMMARY | 2022-01-16 08:04 | XMS_ITS | Encounter Summary ---
:1965 Author Organization [facility] Address [address], [place] [address] Care Team Providers Name Role Phone Yaneth Dodd MD Primary Care Provider Reason for Visit Reason Onset Date Comments Medication Request 02/08/2014 tolterodine Encounter Details Date Type Department Care Team Description 02/08/2014 Telephone [facility] Yaneth Dodd M edication Request Practice MD (tolterodine) [id number] [place] [address] [place], [place] [phone] (Wo rk) Social History Tobacco Use Types Packs/Day Years Used Date Smoking Tobacco: Former Cigarettes 0.5 3 Cigars Smokeless Tobacco: Never Comments: Occasional cigar Alcohol Use Standard Drinks/Week Comments Yes 0 (1 standard drink = 0.6 oz pure alcoho l) Rare Sex Assigned at Date Recorded Not on file documented as of this encounter Nursing Notes Stacey Felton - 02/08/2014 2:44 PM CST The pt is aware. UTIVE MARKETING ASSISTANT Yaneth Dodd MD - 02/08/2014 2:37 PM CST new rx sent. UTIVE MARKETING ASSISTANT Cece Mendoza - 02/08/2014 2:13 PM CST Per patient he needs Tolterodine Tartrate 2mg tabs because insurance does not cover 4mg tabs. Sig should say take 1 tablet by mouth 2 times daily. UTIVE MARKETING ASSISTANT documented in this encounter Plan of Treatment Not on filedocumented as of this encounter Visit Diagnoses Not on filedocumented in this encounter Care Teams Rivet Flunky Relationship Specialty Start Date End Date Yaneth Dodd MD PCP - General 08/01/09 04/28/17 [address] [place] [address] documented as of this encounter
--- OUTSIDE RECORDS SUMMARY | 2022-01-16 08:04 | XMS_ITS | Encounter Summary ---
:1965 Author Organization [employer] Address [address] [place] [address] Care Team Providers Name Role Phone Yaneth Dodd MD Primary Care Provider Reason for Visit Reason Comments Refill Encounter Details Date Type Department Care Team Description 07/20/[address] [facility] Yaneth Dodd MD Refill [address] [facility] [address] [place], [place] [address] [place] [address] [phone] (Wo rk) Social History Tobacco Use Types Packs/Day Years Used Date Smoking Tobacco: Former Cigarettes 0.5 3 Cigars Smokeless Tobacco: Never Comments: Occasional cigar Alcohol Use Standard Drinks/Week Comments Yes 0 (1 standard drink = 0.6 oz pure alcoho l) Rare Sex Assigned at Date Recorded Not on file documented as of this encounter Nursing Notes Interface, Out Surescripts Prov Query - 07/20/2014 3:31 AM CDT traZODone (AKA DESYREL) 100 MG tablet [Pharmacy Med Name: TRAZODONE 100MG TABLET] - VIOLATION: Medications in this protocol cannot be delegated. - PROTOCOL: Antidepressants - LAST QUALIFYING VISIT IN FAMILY PRACTICE: 11/15/2013 - NEXT SCHEDULED VISIT: None - LAST REFILLED ON: 03/10/2014, QTY: 60, Refills: 3, Sig: take 1-2 tabs by mouth at bedtime as needed for sleep. (changed but equivalent) Powered by [employer], Reference: [id number], 07/20/2014 3:31:04 AM CDT, Pool: WYLIE RN ([id number]) documented in this encounter Plan of Treatment Not on filedocumented as of this encounter Visit Diagnoses Not on filedocumented in this encounter Care Teams Unit Receptionist Relationship Specialty Start Date End Date Yaneth Dodd MD PCP - General 08/01/09 04/28/17 [address] [place] [address] documented as of this encounter
--- OUTSIDE RECORDS SUMMARY | 2022-01-16 08:04 | XMS_ITS | Encounter Summary ---
:1965 Author Organization [email or web address] Address [address] [address] Care Team Providers Name Role Phone Yaneth Dodd MD Primary Care Provider Encounter Details Date Type Department Care Team Description 06/17/2013 Orders Only [facility] Medication refill [address] [place], [place] [address] Social History Tobacco Use Types Packs/Day Years Used Date Smoking Tobacco: Former Cigarettes 0.5 3 Cigars Smokeless Tobacco: Never Comments: Occasional cigar Alcohol Use Standard Drinks/Week Comments Yes 0 (1 standard drink = 0.6 oz pure alcoho l) Rare Sex Assigned at Date Recorded Not on file documented as of this encounter Progress Notes Yaneth Dodd MD - 06/20/2013 2:36 PM CDT Quick Note: Call pt. Let him know that his 2 liver tests are mildly elevated. Ask if anything has changed in his meds and if he is drinking more alcohol or using [...] Procedure Name Priority Date/Time Associated Comments Diagnosis LIPID PANEL AND Routine 06/17/2013 10:04 AM Medication refill Results for this DIRECT LDL(IF CDT procedure are in NEEDED) the results section. CREATININE / GFR Routine 06/17/2013 10:04 AM Medication refill Results for this CDT procedure are i n the results section. ALT (SGPT) Routine 06/17/2013 10:04 AM Medication refill Res ults for this CDT procedure are i n the results section. AST Routine 06/17/2013 10:04 AM Results for this CDT procedure are i n the results section. POTASSIUM Routine 06/17/2013 10:04 AM Medication refill Res ults for this CDT procedure are i n the results section. ALKALINE Routine 06/17/2013 10:04 AM Results for this PHOSPHATASE, TOTAL CDT procedure are in the results section. documented in this encounter Results (ABNORMAL) AST (06/17/2013 10:04 AM CDT) P athologist Signature AST (SGOT) 76 (H) 0 - 66 U/L [facility] Comment: PLEASE NOTE CHANGE IN REFERENCE RANGE Specimen Anatomical Collection Method Collection Time Receive d Time (Source) Location / / Volume Laterality 06/17/2013 10:04 06/17/2013 AM CDT 10:07 AM CDT Narrative [facility] - 06/19/2013 7:32 PM C DT Performed at [facility], [address] [place] [address] ??[phone] Yaneth Dodd MD LAB_1 Performing Organization Address [facility] [address]/[facility] Phon e Number [facility] [phone] ALKALINE PHOSPHATASE, TOTAL (06/17/2013 10:04 AM CDT) Patholo gist Method Time Signature Alkaline 47 38 - 126 [facility] U/L [facility] Specimen Anatomical Collection Method Collection Time Receive d Time (Source) Location / / Volume Laterality 06/17/2013 10:04 06/17/2013 AM CDT 10:07 AM CDT Narrative [facility] - 06/19/2013 7:32 PM C DT Performed at [facility], [address] [place] [address] ??[phone] Yaneth Dodd MD LAB_1 Performing Organization Address City/[facility] [address]/ZIP [facility] Phon e Number [facility] [phone] (ABNORMAL) ALT (SGPT) (06/17/2013 10:04 AM CDT) P athologist Signature ALT (SGPT) 91 (H) 0 - 69 U/L [facility] Specimen Anatomical Collection Method Collection Time Receive d Time (Source) Location / / Volume Laterality 06/17/2013 10:04 06/17/2013 AM CDT 10:07 AM CDT Narrative [facility] - 06/19/2013 2:35 PM C DT Performed at [facility], [address] [place] [address] ??[phone] Yaneth Dodd MD LAB_1 Performing Organization Address City/[facility] [address]/[facility] Phon e Number [facility] [phone] (ABNORMAL) LIPID PANEL AND DIRECT LDL(IF NEEDED) [...] 06/19/2013 2:35 PM C DT Performed at [facility], [address] [place] [address] ??[phone] Yaneth Dodd MD LAB_1 Performing Organization Address City/[facility] [address]/ZIP [facility] Phon e Number [facility] [phone] CREATININE / GFR (06/17/2013 10:04 AM CDT) [...] 06/19/2013 2:35 PM C DT Performed at [facility], [address] [place] [address] ??[phone] Yaneth Dodd MD LAB_1 Performing Organization Address [facility] [address]/[facility] Code Phon e Number [facility] [phone] POTASSIUM (06/17/2013 10:04 AM CDT) athologist Signature Potassium 4.4 3.5 - 5.3 [facility] mmol/L Specimen Anatomical Collection Method Collection Time Receive d Time (Source) Location / / Volume Laterality 06/17/2013 10:04 06/17/2013 AM CDT 10:07 AM CDT Narrative [facility] - 06/19/2013 2:35 PM C DT Performed at [facility], [address] [place] [address] ??[phone] Yaneth Dodd MD LAB_1 Performing Organization Address City/[facility] [address]/[facility] Phon e Number [facility] [phone] documented in this encounter Visit Diagnoses Diagnosis Medication refill Issue of repeat prescriptions documented in this encounter Care Teams Rework Machine Operator Relationship Specialty Start Date End Date Yaneth Dodd MD PCP - General 08/01/09 04/28/17 [address] [place] [address] documented as of this encounter
--- OUTSIDE RECORDS SUMMARY | 2022-01-16 08:04 | XMS_ITS | Encounter Summary ---
:1965 Author Organization [facility] Address [address] [place] [address] Care Team Providers Name Role Phone Yaneth Strong MD Primary Care Provider Reason for Visit Reason Onset Date Comments RESULTS, TEST 06/20/2013 Encounter Details Date Type Department Care Team Description 06/20/2013 Telephone [facility] Chris Strong MD RESULTS, TEST Practice [address] [facility] [address] [place] [address] [place] [address] [phone] Social History Tobacco Use Types Packs/Day Years Used Date Smoking Tobacco: Former Cigarettes 0.5 3 Cigars Smokeless Tobacco: Never Comments: Occasional cigar Alcohol Use Standard Drinks/Week Comments Yes 0 (1 standard drink = 0.6 oz pure alcoho l) Rare Sex Assigned at Date Recorded Not on file documented as of this encounter Nursing Notes Amy Mukherjee LPN - 06/22/2013 9:09 AM CDT I have reviewed the provider's instructions with the patient, answering all questions to his satisfaction.Amy Mukherjee LPN 06/22/2013, 9:09 AM Amy Mukherjee LPN - 06/20/2013 3:21 PM CDT LMTCB. Amy Mukherjee LPN 06/20/2013, 3:21 PM Amy Mukherjee LPN - 06/20/2013 3:19 PM CDT Message copied by AMY MUKHERJEE on WedJun 20, 2013 3:19 PM ------ Message from: YANETH STRONG Created: WedJun 20, 2013 2:36 PM Call pt. Let him know [...] I will have orders in the lab. ------ documented in this encounter Plan of Treatment Not on filedocumented as of this encounter Visit Diagnoses Not on filedocumented in this encounter Care Teams Ballistics Tester Relationship Specialty Start Date End Date Yaneth Strong MD PCP - General 08/01/09 04/28/17 [address] [place] [address] documented as of this encounter
--- OUTSIDE RECORDS SUMMARY | 2022-01-16 08:04 | XMS_ITS | Encounter Summary ---
:1965 Author Organization [employer] Address [address] [place] [address] Care Team Providers Name Role Phone Yaneth Dodd MD Primary Care Provider Reason for Visit Reason Comments Refill Encounter Details Date Type Department Care Team Description 12/07/2013 Refill [facility] Yaneth Dodd MD Refill [address] [facility] [address] [place], [place] [address] [place] [address] [phone] (Wo rk) Social History Tobacco Use Types Packs/Day Years Used Date Smoking Tobacco: Former Cigarettes 0.5 3 Cigars Smokeless Tobacco: Never Comments: Occasional cigar Alcohol Use Standard Drinks/Week Comments Yes 0 (1 standard drink = 0.6 oz pure alcoho l) Rare Sex Assigned at Date Recorded Not on file documented as of this encounter Nursing Notes Ninfa Matos RN, BSN - 12/07/2013 7:47 AM CDT Does not meet standing order criteria due to elevated AST. Provider to authorize 12/07/2013 4:01 AM CDT diclofenac (AKA VOLTAREN) 50 MG enteric coated tablet [Pharmacy Med Name: DICLOFENAC SOD EC 50MG TAB] - VIOLATION: Medication is not assigned to a protocol. - PROTOCOL: None Exists - LAST VISIT IN FAMILY PRACTICE: 11/15/2013 - NEXT SCHEDULED VISIT: None - LAST REFILLED ON: 11/08/2013, QTY: 60, Refills: 0, Sig: take 1 tablet by mouth two times a day. (unchanged) Powered by [employer], Reference: [id number], 12/07/2013 4:01:34 AM CDT, Pool: WYLIE RN ([id number]) documented in this encounter Plan of Treatment Not on filedocumented as of this encounter Visit Diagnoses Not on filedocumented in this encounter Care Teams Sampling Theory Teacher Relationship Specialty Start Date End Date Yaneth Dodd MD PCP - General 08/01/09 04/28/17 [address] [place] [address] documented as of this encounter
--- OUTSIDE RECORDS SUMMARY | 2022-01-16 08:04 | XMS_ITS | Encounter Summary ---
:1965 Author Organization [facility] Address [address] [place] [address] Care Team Providers Name Role Phone Yaneth Dodd MD Primary Care Provider Reason for Visit Reason Comments HEADACHE x 5 days. Pt took Maxalt on Wednesday, Imitrex on Wednesday and Wednesday. Encounter Details Date Type Department Care Team Description 07/31/2014 Office Visit [facility] Boaz Maguire Headache (784.0) (Primary Dx); Practice MD [place] [id number] [address] [phone] Social History Tobacco Use Types Packs/Day Years [...] Sign Reading Time Taken Comments Blood Pressure 112/74 07/31/2014 9:11 AM CDT Pulse 69 07/31/2014 9:11 AM CDT Temperature 36.2 ??C (97.2 ??F) 07/31/2014 9:11 AM CDT Respiratory Rate 14 07/31/2014 9:11 AM CDT Oxygen Saturation - - Inhaled Oxygen Concentration - - Weight - - Height - - Body Mass Index - - documented in this encounter Patient Instructions Patient InstructionsBoaz Maguire MD - 07/31/2014 10:19 AM CDT Go to [facility] this morning. This headache could be meninginitis and needs further evaluation today. The imitrex I refilled for you today is not for this headache. It is just a refill as you requested for your next migraine in the future. documented in this encounter Progress Notes Boaz Maguire MD - 07/31/2014 10:15 AM CDT SUBJECTIVE Nicanor Alvarado is a 48 yr male who complains of severe 10/10 pounding headache on the top of his head that awoke him from sleep 5 days ago. This was preceeded by 4 days of coryza. He also developed a herpes outbreak on his nose the same night he awoke with the headache. He has had chills and sweats associated. He did not check his temp. He has been taking Voltaren as well as imitrex. Last Imitrex noon yesterday with some relief. Took two Voltaren this morning. At this time his pain is about a 4/10. There is photophobia lightheadedness and muscle aches associated. On the weekend he said his neck was very stiff and it was difficult for him to either flex or turn his head. He is been very nauseated but no vomiting. Eyes had some blurred vision as well sometimes. Past medical history reviewed per patient states he has had a history of herpes on his nose 24 yearsago and he also has recurrent genital herpes. Problem list reviewed on [facility] Social history reviewed on [facility] Current Outpatient Prescriptions Medication Sig ??? desonide (AKA DESOWEN) 0.05 % cream Apply topically. 1-2 times daily ??? diclofenac (AKA VOLTAREN) 50 MG enteric coated tablet TAKE 1 TABLET BY MOUTH TWO TIMES A DAY. ??? Fish Oil Take 900 mg by mouth daily. ??? lisinopril (AKA ZESTRIL) 20 MG tablet TAKE 1 TABLET (20 MG) BY ORAL ROUTE ONCE DAILY ??? ranitidine (AKA ZANTAC) 300 MG tablet Take 1 Tab by mouth daily at bedtime. ??? SUMAtriptan (IMITREX) 100 MG tablet Take 1 Tab by mouth once as needed for up to 1 dose. May repeat after 2 hours if headache recurs. No more than 2 doses in a 24 hour period. ??? tolterodine (AKA DETROL) 2 MG tablet Take 1 Tab by mouth two times a day. ??? traZODone (AKA DESYREL) 100 MG tablet TAKE 1-2 TABLETS BY MOUTH AT BEDTIME NEEDED FOR SLEEP. ??? valACYclovir (AKA VALTREX) 500 MG tablet TAKE 1 TABLET (500 MG) BY ORAL ROUTE 2 TIMES PER DAY No Known Allergies There are no associated abnormal neurological symptoms such as TIA's, loss of balance, loss of vision or speech, numbness or weakness on review. Past neurological history: Positive for migraines, he has never had one last more than one day. OBJECTIVE BP 112/74 Pulse 69 Temp(Src) 97.2 ??F (36.2 ??C) (Oral) Resp 14 Alert and oriented x 3. Ears and throat normal. Neck supple and has pain when he flexes to produce chin to chest. No adenopathy There are some small blisters with erythema at the verge of the right nostril Cranial nerves are normal. Pain with extraocular movements, but gaze is conjugate. DTR's normal and symmetric. Mental status normal. Chest clear to auscultation bilaterally heart sounds normal no murmurs ASSESSMENT/PLAN: ICD-9-CM 1. Headache(784.0) 784.0 2. Herpes 054.9 I advised the patient that his symptoms are concerning for, meningitis, possibly herpes meningitis. His absence of fever today could be due to Voltaren, his symptoms appear to be improving today however this could be as a result of the Imitrex and Voltaren he took. I recommended the patient go to [facility] for further further evaluation to rule out meningitis. Dr Kaur at [facility] ER notified. Imitrex is reordered for the patient because he has run out. I advised him that this is for his nextmigraine headache not for this current episode and he needs further evaluation today. Boaz Maguire MD 07/31/2014, 10:22 AM documented in this encounter Plan of Treatment Not on filedocumented as of this encounter Visit Diagnoses Diagnosis Headache(784.0) - Primary Headache Herpes Herpes simplex without mention of compli cation documented in this encounter Care Teams Tube Depatcher Relationship Specialty Start Date End Date Yaneth Dodd MD PCP - General 08/01/09 04/28/17 [address] [place] [address] documented as of this encounter
--- OUTSIDE RECORDS SUMMARY | 2022-01-16 08:04 | XMS_ITS | Encounter Summary ---
:1965 Author Organization [employer] Address [address] [place] [address] Care Team Providers Name Role Phone Yaneth Dodd MD Primary Care Provider Reason for Visit Reason Comments Refill Encounter Details Date Type Department Care Team Description 05/03/2013 Refill [facility] Yaneth Dodd MD Refill [address] [facility] [address] [place], [place] [address] [place] [address] [phone] (Wo rk) Social History Tobacco Use Types Packs/Day Years Used Date Smoking Tobacco: Former Cigarettes 0.5 3 Cigars Smokeless Tobacco: Never Comments: Occasional cigar Alcohol Use Standard Drinks/Week Comments Yes 0 (1 standard drink = 0.6 oz pure alcoho l) Rare Sex Assigned at Date Recorded Not on file documented as of this encounter Nursing Notes Interface, Out Surescripts Prov Query - 05/03/2013 9:20 AM CST HYDROcodone-acetaminophen (AKA NORCO) 5-325 MG tablet [Pharmacy Med Name: HYDROCODONE-APAP 5-325 TABLET] - VIOLATION: Medication is not assigned to a protocol. - PROTOCOL: None Exists (Controlled Substance) - LAST PRIMARY CARE VISIT: 05/12/2012 - NEXT PRIMARY CARE VISIT: None - LAST REFILLED ON: 04/05/2013, QTY: 30, Refills: 0, Sig: take 1 tablet by oral route every 4 hours as needed for pain (changed) Powered by [employer], Reference: [id number], 05/03/2013 9:20:00 AM CORK SORTER SORTER Interface, Out wiMAN Query - 05/03/2013 9:20 AM CSTThe following is the most recent Careplan note pulled in byBib: The patient suffers from chronic low back pain. Currently, he uses 30tablets of hydrocodone 5-325 mg every month. He has been very compliant. SORTER documented in this encounter Plan of Treatment Not on filedocumented as of this encounter Visit Diagnoses Not on filedocumented in this encounter Care Teams Executor Of Estate Relationship Specialty Start Date End Date Yaneth Dodd MD PCP - General 08/01/09 04/28/17 [address] [place] [address] documented as of this encounter
--- OUTSIDE RECORDS SUMMARY | 2022-01-16 08:04 | XMS_ITS | Encounter Summary ---
:1965 Author Organization [employer] Address [address] [place] [address] Care Team Providers Name Role Phone Yaneth Dodd MD Primary Care Provider Reason for Visit Reason Comments Refill Encounter Details Date Type Department Care Team Description 07/30/2013 Refill [facility] Yaneth Dodd MD Refill [address] [facility] [address] [place], [place] [address] [place] [address] [phone] (Wo rk) Social History Tobacco Use Types Packs/Day Years Used Date Smoking Tobacco: Former Cigarettes 0.5 3 Cigars Smokeless Tobacco: Never Comments: Occasional cigar Alcohol Use Standard Drinks/Week Comments Yes 0 (1 standard drink = 0.6 oz pure alcoho l) Rare Sex Assigned at Date Recorded Not on file documented as of this encounter Nursing Notes Stacey Felton - 08/04/2013 3:42 PM CDT lmtcb and letter mailed. Stacey Felton - 08/02/2013 11:39 AM CDT Lmtcb. 08/02/2013 11:39 AM Stacey Felton Stacey Felton - 08/01/2013 8:32 AM CDT Lmtcb. 08/01/2013 8:32 AM Stacey Felton Yaneth Dodd MD - 08/01/2013 7:40 AM CDT Pt needs follow up visit for meds. 07/30/2013 9:28 AM CDT HYDROcodone-acetaminophen (AKA NORCO) 5-325 MG tablet [Pharmacy Med Name: HYDROCODONE-APAP 5-325 TABLET] - WARNING: The requested medication was previously set to Print on 06/30/2013. - VIOLATION: Medication is not assigned to a protocol. - PROTOCOL: None Exists (Controlled Substance) - LAST PRIMARY CARE VISIT: 05/12/2012 - NEXT PRIMARY CARE VISIT: None - LAST REFILLED: Not available (Last set to Print on 06/30/2013.) Powered by [employer], Reference: [id number], 07/30/2013 9:30:52 AM CDT 07/30/2013 9:28 AM CDT The following is the most recent Careplan note pulled in by Bib: The patient suffers from chronic low back pain. Currently, he uses 30 tablets of hydrocodone 5-325 mg every month. He has been very compliant. documented in this encounter Plan of Treatment Not on filedocumented as of this encounter Visit Diagnoses Not on filedocumented in this encounter Care Teams Route Driver Relationship Specialty Start Date End Date Yaneth Dodd MD PCP - General 08/01/09 04/28/17 [address] [place] [address] documented as of this encounter
--- OUTSIDE RECORDS SUMMARY | 2022-01-16 08:04 | XMS_ITS | Encounter Summary ---
:1965 Author Organization [facility] Address [address] [place] [address] Care Team Providers Name Role Phone Yaneth Dodd MD Primary Care Provider Reason for Visit Reason Comments Refill Encounter Details Date Type Department Care Team Description 02/05/2014 Refill [facility] Yaneth Dodd MD Refill [address] [facility] [address] [place], [place] [address] [place] [address] [phone] (Wo rk) Social History Tobacco Use Types Packs/Day Years Used Date Smoking Tobacco: Former Cigarettes 0.5 3 Cigars Smokeless Tobacco: Never Comments: Occasional cigar Alcohol Use Standard Drinks/Week Comments Yes 0 (1 standard drink = 0.6 oz pure alcoho l) Rare Sex Assigned at Date Recorded Not on file documented as of this encounter Nursing Notes Interface, Out Surescripts Prov Query - 02/05/2014 3:45 AM CST diclofenac (AKA VOLTAREN) 50 MG enteric coated tablet [Pharmacy Med Name: DICLOFENAC SOD EC 50MG TAB] - VIOLATION: Medication is not assigned to a protocol. - PROTOCOL: None Exists - LAST QUALIFYING VISIT IN [facility]: 11/15/2013 - NEXT SCHEDULED VISIT: None - LAST REFILLED ON: 01/06/2014, QTY: 60, Refills: 0, Sig: take 1 tablet by mouth two times a day. (unchanged) Powered by [employer], Reference: [id number], 02/05/2014 3:46:30 AM Hector CENTENO: WYLIE RN ([id number]) BO documented in this encounter Plan of Treatment Not on filedocumented as of this encounter Visit Diagnoses Not on filedocumented in this encounter Care Teams Time Study Clerk Relationship Specialty Start Date End Date Yaneth Dodd MD PCP - General 08/01/09 04/28/17 [address] [place] [address] documented as of this encounter
--- OUTSIDE RECORDS SUMMARY | 2022-01-16 08:04 | XMS_ITS | Encounter Summary ---
:1965 Author Organization [employer] Address [address] [place] [address] Care Team Providers Name Role Phone Yaneth Dodd MD Primary Care Provider Reason for Visit Reason Comments Refill Encounter Details Date Type Department Care Team Description 11/08/2013 Refill [facility] Yaneth Dodd MD Refill [address] [facility] [address] [place], [place] [address] [place] [address] [phone] (Wo rk) Social History Tobacco Use Types Packs/Day Years Used Date Smoking Tobacco: Former Cigarettes 0.5 3 Cigars Smokeless Tobacco: Never Comments: Occasional cigar Alcohol Use Standard Drinks/Week Comments Yes 0 (1 standard drink = 0.6 oz pure alcoho l) Rare Sex Assigned at Date Recorded Not on file documented as of this encounter Nursing Notes Stacey Felton - 11/08/2013 12:49 PM CDT I called and spoke to the pt and he is aware of his need for this appt but he will call back at a later date to arrange it. Yaneth Dodd MD - 11/08/2013 12:32 PM CDT Please call pt and remind him that he needs to make an appt to follow up with abnormal bloodwork. 11/08/2013 12:19 PM CDT diclofenac (AKA VOLTAREN) 50 MG enteric coated tablet [Pharmacy Med Name: DICLOFENAC SOD EC 50MG TAB] - VIOLATION #1: Medication is not assigned to a protocol. - VIOLATION #2: An office visit is overdue (performed over 18 months ago, required every 12 months). - PROTOCOL: None Exists - LAST VISIT IN [facility]: 05/12/2012 - NEXT SCHEDULED VISIT: None - LAST REFILLED ON: 08/29/2013, QTY: 60, Refills: 0, Sig: take 1 tablet by mouth two times a day. (unchanged) Powered by [employer], Reference: [id number], 11/08/2013 12:20:39 PM CDT, Pool: ROB REFILL RN ([id number]) documented in this encounter Plan of Treatment Not on filedocumented as of this encounter Visit Diagnoses Not on filedocumented in this encounter Care Teams Warpman Relationship Specialty Start Date End Date Yaneth Dodd MD PCP - General 08/01/09 04/28/17 [address] [place] [address] documented as of this encounter
--- OUTSIDE RECORDS SUMMARY | 2022-01-16 08:04 | XMS_ITS | Encounter Summary ---
:1965 Author Organization [facility] Address [address], [place] [address] Care Team Providers Name Role Phone Yaneth Dodd MD Primary Care Provider Reason for Visit Reason Onset Date Comments Refill 11/08/2013 Valacyclovir Encounter Details Date Type Department Care Team Description 11/08/2013 Refill [facility] Yaneth Dodd R efill (Valacyclovir) Practice [id number] [place] [address] [place], [place] [phone] (Wo rk) Social History Tobacco Use Types Packs/Day Years Used Date Smoking Tobacco: Former Cigarettes 0.5 3 Cigars Smokeless Tobacco: Never Comments: Occasional cigar Alcohol Use Standard Drinks/Week Comments Yes 0 (1 standard drink = 0.6 oz pure alcoho l) Rare Sex Assigned at Date Recorded Not on file documented as of this encounter Nursing Notes 11/08/2013 1:03 PM CDT valACYclovir (AKA VALTREX) 500 MG tablet - VIOLATION: An office visit is overdue (performed over 18 months ago, required every 12 months). - PROTOCOL: Antivirals - Herpes Simplex Virus (HSV) - LAST VISIT IN [facility]: 05/12/2012 - NEXT SCHEDULED VISIT: None - LAST REFILLED ON: 05/03/2012, QTY: 60, Refills: 6, Sig: take 1 tab by mouth two times a day. (unchanged) - Renal Insufficiency: false Powered by [employer], Reference: [id number], 11/08/2013 1:04:36 PM CDT, Pool: WYLIE RN ([id number]) documented in this encounter Plan of Treatment Not on filedocumented as of this encounter Visit Diagnoses Not on filedocumented in this encounter Care Teams Timber Management Specialist Relationship Specialty Start Date End Date Yaneth Dodd MD PCP - General 08/01/09 04/28/17 [address] [place] [address] documented as of this encounter
--- OUTSIDE RECORDS SUMMARY | 2022-01-16 08:05 | XMS_ITS | Encounter Summary ---
:1965 Author Organization [employer] Address [address] [place] [address] Care Team Providers Name Role Phone Yaneth Dodd MD Primary Care Provider Reason for Visit Reason Onset Date Comments Refill 12/27/2012 Encounter Details Date Type Department Care Team Description 12/27/2012 Refill [facility] Chavo Rios MD Refill [address] [facility] [address] [place], [place] [address] [place], [place] [phone] (Wo rk) Social History Tobacco Use Types Packs/Day Years Used Date Smoking Tobacco: Former Cigarettes 0.5 3 Cigars Smokeless Tobacco: Never Comments: Occasional cigar Alcohol Use Standard Drinks/Week Comments Yes 0 (1 standard drink = 0.6 oz pure alcoho l) Rare Sex Assigned at Date Recorded Not on file documented as of this encounter Nursing Notes Meggan Larson, LAVERN - 12/28/2012 5:44 PM CDT will send to provider to review, as patient has not f/u as requested. OK to refill? ASSESSMENT AND PLAN: 1. Gastroesophageal reflux disease. For this, I have requested him to take Zantac at bedtime in addition to his omeprazole and keep a food diary. 2. History of a bad odor from the body. He says that this is like a fecal order. He gives me no history of soiling. I have talked him about perianal hygiene. I requested him to keep a food diary. Avoid processed foods, excessive sugars, and things like beans, broccoli, or cauliflower. He can also use Pepto-Bismol because of its antibacterial effect and seeif that helps with him. In order to keep him regular, I have requested him to start using Citrucel on a regular basis. He has used fish oil in the past but is not using it on a regular basis. I have requested him to give me an update over MyChart in a few weeks and follow up with me in the clinic in 2months. We also talked about using some body spray and see if that helps with the social aspect of it until we find the cause. This is not really classic of her bacterial overgrowth or constipation. Patient's questions were answered. Chavo Rios MD NAC:vmpark Dictated: 07/12/2012 15:18:10 documented in this encounter Plan of Treatment Not on filedocumented as of this encounter Visit Diagnoses Not on filedocumented in this encounter Care Teams Black[employer] Farm Relationship Specialty Start Date End Date Yaneth Dodd MD PCP - General 08/01/09 04/28/17 [address] [place] [address] documented as of this encounter
--- OUTSIDE RECORDS SUMMARY | 2022-01-16 08:05 | XMS_ITS | Encounter Summary ---
:1965 Author Organization [facility] Address [address] [place] [address] Care Team Providers Name Role Phone Yaneth Dodd MD Primary Care Provider Encounter Details Date Type Department Care Team Description 05/25/2012 Notes/Orders [facility] Ninfa Matos RN, PT CARE COORDINATION - Practice [facility] [id number] [place] [id number] [place] [address] (Primary Dx) [place] [address] [id number] Social History Tobacco Use Types Packs/Day Years Used Date Smoking Tobacco: Former Cigarettes 0.5 3 Cigars Comments: Occasional cigar Alcohol Use Standard Drinks/Week Comments Yes 0 (1 standard drink = 0.6 oz pure alcoho l) Rare Sex Assigned at Date Recorded Not on file documented as of this encounter Nursing Notes Ninfa Matos RN, BSN - 05/25/2012 1:42 PM CDT Encounter for tiering. See flowsheet for chronic problems identified documented in this encounter Plan of Treatment Not on filedocumented as of this encounter Visit Diagnoses Diagnosis PT CARE COORDINATION - [facility] - Primary dummy codes documented in this encounter Care Teams And Taxi Instructor Bus Trolley Relationship Specialty Start Date End Date Yaneth Dodd MD PCP - General 08/01/09 04/28/[id number] [place] [address] documented as of this encounter
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
--- OUTSIDE RECORDS SUMMARY | 2022-01-16 08:05 | XMS_ITS | Encounter Summary ---
:1965 Author Organization [facility] Address [address] [place] [address] Care Team Providers Name Role Phone Yaneth Dodd MD Primary Care Provider Reason for Visit Reason Comments Refill Encounter Details Date Type Department Care Team Description 06/11/2011 Refill [facility] Yaneth Dodd MD Refill [address] [facility] [address] [place], [place] [address] [place] [address] [phone] (Wo rk) Social History Tobacco Use Types Packs/Day Years Used Date Smoking Tobacco: Former Cigarettes 0.5 3 Cigars Comments: Occasional cigar Alcohol Use Standard Drinks/Week Comments Yes 0 (1 standard drink = 0.6 oz pure alcoho l) Rare Sex Assigned at Date Recorded Not on file documented as of this encounter Nursing Notes Rosalio Luther - 06/11/2011 9:56 AM CDT Duplicate: lisinopril (AKA ZESTRIL) 20 MG tablet 90 Tab 1 03/21/2011 Rosalio Luther - 06/11/2011 9:54 AM CDT RN is unable to refill. Date of last visit: 08/26/10 Last time med was ordered:VICODIN 5-500 MG tablet Date: 05/11/11 Dispensed: 15 Number of refills: 0 Careplan: YES, copy of careplan: Yaneth Dodd 02/05/10 11:38 AM Signed Nicanor is a 44-year-old male who suffers from chronic back pain. He has had four surgeries of his lower back including three laminectomies and one fusion. He gets intermittent flares of his back symptoms. We have agreed on 15 tablets of Vicodin monthly. If he should require more than that, he will need to come and talk to me. documented in this encounter Plan of Treatment Not on filedocumented as of this encounter Visit Diagnoses Not on filedocumented in this encounter Care Teams Acid Wash Operator Relationship Specialty Start Date End Date Yaneth Dodd MD PCP - General 08/01/09 04/28/17 [address] [place] [address] documented as of this encounter
--- OUTSIDE RECORDS SUMMARY | 2022-01-16 08:05 | XMS_ITS | Encounter Summary ---
:1965 Author Organization [facility] Address [address] [place] [address] Care Team Providers Name Role Phone Yaneth Dodd MD Primary Care Provider Reason for Visit Reason Comments Refill Encounter Details Date Type Department Care Team Description 05/11/2011 Refill [facility] Emili Mejia MD Refill [address] [facility] [address] [place], [place] [address] [place] [address] [phone] (Wo rk) Social History Tobacco Use Types Packs/Day Years Used Date Smoking Tobacco: Former Cigarettes 0.5 3 Cigars Comments: Occasional cigar Alcohol Use Standard Drinks/Week Comments Yes 0 (1 standard drink = 0.6 oz pure alcoho l) Rare Sex Assigned at Date Recorded Not on file documented as of this encounter Nursing Notes Ya Ayala RN - 05/11/2011 2:20 PM CST RN is unable to refill. Date of last visit: 08/26/10 HYDROcodone-acetaminophen (AKA VICODIN,LORTAB) 5-500 MG tablet Last time med was ordered: Date: 04/10/11 Dispensed: 15 Tab Number of refills: 0 Careplan: YES, copy [...] need to come and talk to me. ANALYST documented in this encounter Plan of Treatment Not on filedocumented as of this encounter Visit Diagnoses Not on filedocumented in this encounter Care Teams Waistline Joiner Relationship Specialty Start Date End Date Yaneth Dodd MD PCP - General 08/01/09 04/28/17 [address] [place] [address] documented as of this encounter
--- OUTSIDE RECORDS SUMMARY | 2022-01-16 08:05 | XMS_ITS | Encounter Summary ---
:1965 Author Organization [facility] Address [address], [place] [address] Care Team Providers Name Role Phone Yaneth Dodd MD Primary Care Provider Encounter Details Date Type Department Care Team Description 05/05/2012 [facility] [place] [address] [facility] [address] [place], [place] [address] [place] [address] [phone] (Wo rk) Social History Tobacco Use Types Packs/Day Years Used Date Smoking Tobacco: Former Cigarettes 0.5 3 Cigars Comments: Occasional cigar Alcohol Use Standard Drinks/Week Comments Yes 0 (1 standard drink = 0.6 oz pure alcoho l) Rare Sex Assigned at Date Recorded Not on file documented as of this encounter Progress Notes Yaneth Dodd MD - 05/05/2012 12:00 AM CST documented in this encounter Plan of Treatment Not on filedocumented as of this encounter Visit Diagnoses Not on filedocumented in this encounter Care Teams Acid Filler Relationship Specialty Start Date End Date Yaneth Dodd MD PCP - General 08/01/09 04/28/17 [address] [place] [address] documented as of this encounter
--- OUTSIDE RECORDS SUMMARY | 2022-01-16 08:05 | XMS_ITS | Encounter Summary ---
:1965 Author Organization [facility] Address [address] [place] [address] Care Team Providers Name Role Phone Yaneth Dodd MD Primary Care Provider Reason for Visit Reason Onset Date Comments Forms 04/07/2012 Encounter Details Date Type Department Care Team Description 04/07/2012 Telephone [facility] Yaneth Dodd MD Forms [id number] [place], [place] [address] [place] [address] [phone] (Wo rk) Social History Tobacco Use Types Packs/Day Years Used Date Smoking Tobacco: Former Cigarettes 0.5 3 Cigars Comments: Occasional cigar Alcohol Use Standard Drinks/Week Comments Yes 0 (1 standard drink = 0.6 oz pure alcoho l) Rare Sex Assigned at Date Recorded Not on file documented as of this encounter Nursing Notes Stacey Felton - 04/07/2012 1:47 PM CST The pt is aware the letter has will go out in the mail today. 04/07/2012 1:47 PM Stacey Felton Yaneth Almazan MD - 04/07/2012 1:33 PM CST I printed a copy of the original letter. Please mail to pt as requested. 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 YES [Supervisor Welding Equipment Repairer: Communicate to patient: Forms may take up to 7-10 business days to complete. We will complete it as soon as possible and return to the location you requested] AL SALES EXECUTIVE documented in this encounter Plan of Treatment Not on filedocumented as of this encounter Visit Diagnoses Not on filedocumented in this encounter Care Teams Tie Puller Relationship Specialty Start Date End Date Yaneth Dodd MD PCP - General 08/01/09 04/28/17 [address] [place] [address] documented as of this encounter
--- OUTSIDE RECORDS SUMMARY | 2022-01-16 08:05 | XMS_ITS | Encounter Summary ---
:1965 Author Organization [facility] Address [address] [place] [address] Care Team Providers Name Role Phone Yaneth Dodd MD Primary Care Provider Reason for Visit Reason Onset Date Comments ERRONEOUS ENTRY 09/22/2012 Encounter Details Date Type Department Care Team Description 09/22/2012 Telephone [facility] Chris Dodd MD ERRONEOUS ENTRY Practice [address] [facility] [address] [place] [address] [place], [place] [address] [phone] Social History Tobacco Use Types Packs/Day Years Used Date Smoking Tobacco: Former Cigarettes 0.5 3 Cigars Smokeless Tobacco: Never Comments: Occasional cigar Alcohol Use Standard Drinks/Week Comments Yes 0 (1 standard drink = 0.6 oz pure alcoho l) Rare Sex Assigned at Date Recorded Not on file documented as of this encounter Nursing Notes Inocencia Cherry - 09/22/2012 9:49 AM CDT rx sent 09/21. documented in this encounter Plan of Treatment Not on filedocumented as of this encounter Visit Diagnoses Not on filedocumented in this encounter Care Teams Radiology Director Relationship Specialty Start Date End Date Yaneth Dodd MD PCP - General 08/01/09 04/28/17 [address] [place] [address] documented as of this encounter
--- OUTSIDE RECORDS SUMMARY | 2022-01-16 08:05 | XMS_ITS | Encounter Summary ---
:1965 Author Organization [email or web address] Address [address] [place] [address] Care Team Providers Name Role Phone Yaneth Dodd MD Primary Care Provider Reason for Visit Reason Comments Refill Encounter Details Date Type Department Care Team Description 02/23/2013 Refill [facility] Yaneth Dodd MD Refill [address] [facility] [address] [place], [place] [address] [place] [address] [phone] (Wo rk) Social History Tobacco Use Types Packs/Day Years Used Date Smoking Tobacco: Former Cigarettes 0.5 3 Cigars Smokeless Tobacco: Never Comments: Occasional cigar Alcohol Use Standard Drinks/Week Comments Yes 0 (1 standard drink = 0.6 oz pure alcoho l) Rare Sex Assigned at Date Recorded Not on file documented as of this encounter Nursing Notes Interface, Out Surescripts Prov Query - 02/23/2013 7:42 PM CST diclofenac (AKA VOLTAREN) 50 MG enteric coated tablet [Pharmacy Med Name: DICLOFENAC SOD EC 50MG TAB] - PROTOCOL: NSAIDS - RATIONALE: This refill should last until the patient is due for an office visit. - LAST PRIMARY CARE VISIT: 05/12/2012 - NEXT PRIMARY CARE VISIT: None - LAST REFILLED ON: 08/16/2012, QTY: 60, Refills: 2, Sig: take 1 tablet by mouth two times a day. (unchanged) Powered by [employer], Reference: [id number], 02/24/2013 L BALER documented in this encounter Plan of Treatment Not on filedocumented as of this encounter Visit Diagnoses Not on filedocumented in this encounter Care Teams Track Oiler Relationship Specialty Start Date End Date Yaneth Dodd MD PCP - General 08/01/09 04/28/17 [address] [place] [address] documented as of this encounter
--- OUTSIDE RECORDS SUMMARY | 2022-01-16 08:05 | XMS_ITS | Encounter Summary ---
:1965 Author Organization [facility] Address [address] [place] [address] Care Team Providers Name Role Phone Yaneth Dodd MD Primary Care Provider Reason for Visit Reason Onset Date Comments Refill 09/09/2012 Encounter Details Date Type Department Care Team Description 09/09/2012 Refill [facility] Chavo Rios MD Refill [address] [facility] [address] [address] [facility] [address] [place], [place] [address] [place], [place] [id number] (Wo rk) Social History Tobacco Use Types Packs/Day Years Used Date Smoking Tobacco: Former Cigarettes 0.5 3 Cigars Smokeless Tobacco: Never Comments: Occasional cigar Alcohol Use Standard Drinks/Week Comments Yes 0 (1 standard drink = 0.6 oz pure alcoho l) Rare Sex Assigned at Date Recorded Not on file documented as of this encounter Nursing Notes Ya Ayala RN - 09/12/2012 12:52 PM CDT Prescription sent to incorrect Provider, please route to Gastroenterology provider Chavo Rios MD the appropriate authorizing provider who is managing this problem. Thanks, Ya Ayala, RN documented in this encounter Plan of Treatment Not on filedocumented as of this encounter Visit Diagnoses Not on filedocumented in this encounter Care Teams Dental Ceramist Helper Relationship Specialty Start Date End Date Yaneth Dodd MD PCP - General 08/01/09 04/28/17 [address] [place] [address] documented as of this encounter
--- OUTSIDE RECORDS SUMMARY | 2022-01-16 08:05 | XMS_ITS | Encounter Summary ---
:1965 Author Organization [facility] [employer] [facility] [employer] [facility] Address [address] [place] [address] Care Team Providers Name Role Phone Yaneth Dodd MD Primary Care Provider Reason for Visit Reason Comments Refill Encounter Details Date Type Department Care Team Description 02/17/2013 Refill [facility] Mervin Mckeon MD Refill Medicine [address] [place] [id number] [place] [address] [address] [phone] Social History Tobacco Use Types Packs/Day Years Used Date Smoking Tobacco: Former Cigarettes 0.5 3 Cigars Smokeless Tobacco: Never Comments: Occasional cigar Alcohol Use Standard Drinks/Week Comments Yes 0 (1 standard drink = 0.6 oz pure alcoho l) Rare Sex Assigned at Date Recorded Not on file documented as of this encounter Nursing Notes Interface, Out Surescripts Prov Query - 02/17/2013 1:05 PM CST HYDROcodone-acetaminophen (AKA NORCO) 5-325 MG tablet [Pharmacy Med Name: HYDROCODONE-APAP 5-325 TABLET] - REFILL: Review - REASON #1: Medication is not assigned to a protocol. - REASON #2: Medication is a controlled substance. - PROTOCOL: None Exists - LAST PRIMARY CARE VISIT: 05/12/2012 - NEXT PRIMARY CARE VISIT: None - LAST REFILLED ON: 01/20/2013, QTY: 30, Refills: 0, Sig: take one tablet by mouth every 4 hours as needed for pain (changed) Reference: [id number] Powered by [employer] DEVELOPER Interface, Out [employer] Query - 02/17/2013 1:05 PM CSTThe following is the most recent Careplan note pulled in Raquel: The patient suffers from chronic low back pain. Currently, he uses 30tablets of hydrocodone 5-325 mg every month. He has been very compliant. DEVELOPER documented in this encounter ED Notes Interface, Out [employer] Query - 02/17/2013 1:05 PM CST Order(s) created erroneously. Erroneous order ID: [id number] Order moved by: ANTONIOFinanceAcar Order move date/time: 02/17/2013 1:05 PM Source Patient: [id number] Source Contact: 02/17/2013 Destination Patient: [id number] Destination Contact: 02/17/2013 DEVELOPER documented in this encounter Plan of Treatment Not on filedocumented as of this encounter Visit Diagnoses Not on filedocumented in this encounter Care Teams Content Architect Relationship Specialty Start Date End Date Yaneth Dodd MD PCP - General 08/01/09 04/28/17 [address] [place] [address] documented as of this encounter
--- OUTSIDE RECORDS SUMMARY | 2022-01-16 08:05 | XMS_ITS | Encounter Summary ---
:1965 Author Organization [facility] Address [address] [place] [address] Care Team Providers Name Role Phone Yaneth Dodd MD Primary Care Provider Reason for Visit Reason Comments CP Controlled Substance Assessment Consult/Transfer Care (Routine) - Closed Specialty Diagnoses / Procedures Referred By Contact Refer red To Contact Diagnoses [place] [address] [place], [place] [address] Referral ID Status Reason Start Date Expiration Date Visits Requ ested Visits Authorized [id number] Closed 05/03/2012 1 1 Encounter Details Date Type Department Care Team Description 05/12/2012 Office Visit [facility] Yaneth Dodd duarte low back pain (Primary Dx); Criselda Crowe MD Screening; [address] [facility] [id number] [place] [address] [place]rolled [place] [address] [phone] Social History Tobacco Use Types Packs/Day Years Used Date Smoking Tobacco: Former Cigarettes 0.5 3 Cigars Comments: Occasional cigar Alcohol Use Standard Drinks/Week Comments Yes 0 (1 standard drink = 0.6 oz pure alcoho l) Rare Sex Assigned at Date Recorded Not on file documented as of this encounter Progress Notes Yaneth Dodd MD - 05/12/2012 11:48 AM CST Subjective: 46-year-old male comes in for his controlled substance visit. Patient suffers from chronic low back pain. Also has pain in his knees, ankles and right shoulder, likely secondary to arthritis. He has undergone four back surgeries of the lower lumbar region. Before surgery was a fusion. He does have some reduced mobility but tries to stay active. 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 Works out fairly regularly. Stretches. Does exercises. He has done physical therapy in the past but currently is just trying to stay active on his own. His controlled substance plan consists of 30 hydrocodone monthly. He uses the 5 mg/325 mg tablets. Tends to only use 1/2-1 tablet at a time. May go several days without using anything. May use two or three in a day., Depending on how his symptoms are. We went over the paperwork together. He understands the risks of being on narcotic including sedation and addiction. He also understands that we will not refill any lost prescriptions or early prescriptions. He needs to let us know if he is given narcotics from any other source such as a surgeon or an Emergency Room. Patient understands all the we talked about today and agrees with the contract. We will get a urine tox screen today. His questions were answered. He will follow as needed. ACUTE CARE NURSE documented in this encounter Plan of Treatment Not on filedocumented as of this encounter Results DRUG SCREEN-PAIN MANAGEMENT, URINE (05/12/2012 10:37 AM SUB ACUTE CARE NURSE) Component Value Ref Test Analysis Performed At [facility] Range Method Time Signature Drug Screen, Urine Urine [facility] negative for drugs screened Benzodiazepines Negative NEG [facility] THC(Marijuana) Negative [facility] Metab Barbiturates Negative [facility] Cocaine Metabolite Negative [facility] Opiates Negative [facility] Codeine, Urine Negative [facility] Morphine, Urine Negative [facility] Hydrocodone, Urine Negative [facility] Hydromorphone,Urin Negative [facility] e Oxycodone, Urine Negative [facility] Oxymorphone, Urine Negative [facility]G [facility] P.C.P. Negative [facility]G [facility] Amphetamines Negative [facility] Methadone Negative [facility] Propoxyphene,Urine Negative [facility] pH Urine,Tox 6.7 [facility] Performed at [facility] Creatinine 43.7 mg/dL [facility] Urine,Tox Comment: Performed at [facility] Codeine TLD Unknown [facility] Morphine TLD Unknown [facility] Hydrocodone TLD Unknown [facility] Hydromorphone TLD Unknown [facility] Oxycodone TLD Unknown [facility] Oxymorphone TLD Unknown [facility] Specimen Anatomical Collection Method Collection Time Receive d Time (Source) Location / / Volume Laterality Urine specimen 05/12/2012 10:37 3 (specimen) AM SUB ACUTE CARE NURSE 10:38 AM SUB ACUTE CARE NURSE Yaneth Dodd MD LAB_1 Performing Organization Address City/State/ZIP Code Phon e Number [facility] [phone] [address] documented in this encounter Visit Diagnoses Diagnosis Chronic low back pain - Primary Lumbago Screening Screening for unspecified condition Controlled substance agreement signed Encounter for long-term (current) use of other medications documented in this encounter Care Teams Optical Effects Layout Person Relationship Specialty Start Date End Date Yaneth Dodd MD PCP - General 08/01/09 04/28/17 [address] [place], [place] [id number] documented as of this encounter
--- OUTSIDE RECORDS SUMMARY | 2022-01-16 08:05 | XMS_ITS | Encounter Summary ---
:1965 Author Organization [facility] Address [address] [place] [address] Care Team Providers Name Role Phone Yaneth Dodd MD Primary Care Provider Reason for Visit Reason Comments Refill Encounter Details Date Type Department Care Team Description 12/16/2012 Refill [facility] Yaneth Dodd MD Refill [address] [facility] [address] [place], [place] [address] [place] [address] [phone] (Wo rk) Social History Tobacco Use Types Packs/Day Years Used Date Smoking Tobacco: Former Cigarettes 0.5 3 Cigars Smokeless Tobacco: Never Comments: Occasional cigar Alcohol Use Standard Drinks/Week Comments Yes 0 (1 standard drink = 0.6 oz pure alcoho l) Rare Sex Assigned at Date Recorded Not on file documented as of this encounter Nursing Notes Malia Correia RN - 12/16/2012 9:25 AM CDT RN is unable to refill. Date of last visit: 05/12/12 Last time med was ordered: Date: 11/20/12 Dispensed: 30 Number of refills: 0 Narcotic Careplan: 05/03/12: The patient suffers from chronic low back pain. Currently, he uses 30 tablets of hydrocodone 5-325 mg every month. He has been very compliant. --- Malia Correia RN 12/16/2012, 9:26 AM --- Patient is calling about their refill request, please complete as soon as possible. Thanks, Av clinic documented in this encounter Plan of Treatment Not on filedocumented as of this encounter Visit Diagnoses Not on filedocumented in this encounter Care Teams Online Marketing Director Relationship Specialty Start Date End Date Yaneth Dodd MD PCP - General 08/01/09 04/28/17 [address] [place] [address] documented as of this encounter
--- OUTSIDE RECORDS SUMMARY | 2022-01-16 08:05 | XMS_ITS | Encounter Summary ---
:1965 Author Organization [facility] Address [address] [place] [address] Care Team Providers Name Role Phone Yaneth Dodd MD Primary Care Provider Reason for Visit Reason Comments Refill Encounter Details Date Type Department Care Team Description 05/12/2011 Refill [facility] Yaneth Dodd MD Refill [address] [facility] [address] [place], [place] [address] [place], [place] [phone] (Wo rk) Social History Tobacco Use Types Packs/Day Years Used Date Smoking Tobacco: Former Cigarettes 0.5 3 Cigars Comments: Occasional cigar Alcohol Use Standard Drinks/Week Comments Yes 0 (1 standard drink = 0.6 oz pure alcoho l) Rare Sex Assigned at Date Recorded Not on file documented as of this encounter Nursing Notes Omaira Chen RN - 05/15/2011 10:16 AM CST Per standing order. Omaira Chen RN 05/15/2011 10:16 AM OR LEAD JAVA DEVELOPER documented in this encounter Plan of Treatment Not on filedocumented as of this encounter Visit Diagnoses Not on filedocumented in this encounter Care Teams Bindery Chief Relationship Specialty Start Date End Date Yaneth Dodd MD PCP - General 08/01/09 04/28/17 [address] [place], [place] [phone] documented as of this encounter
--- OUTSIDE RECORDS SUMMARY | 2022-01-16 08:05 | XMS_ITS | Encounter Summary ---
:1965 Author Organization [facility] Address [address] [place] [address] Care Team Providers Name Role Phone Yaneth Dodd MD Primary Care Provider Reason for Visit Reason Comments EAR,PLUGGED left ear x 3 days Encounter Details Date Type Department Care Team Description 08/27/2012 Office Visit [facility] Left ot itis media (Primary Dx); Nikolai Allergic rhinitis [address] [place], [place] [address] Social History Tobacco Use [...] Sign Reading Time Taken Comments Blood Pressure 117/66 08/27/2012 9:41 AM CDT Pulse 72 08/27/2012 9:41 AM CDT Temperature 36.8 ??C (98.2 ??F) 08/27/2012 9:41 AM CDT Respiratory Rate 18 08/27/2012 9:41 AM CDT Oxygen Saturation - - Inhaled Oxygen Concentration - - Weight 90.7 kg (200 lb) 08/27/2012 9:41 AM CDT Height 186.7 cm (6' 1.5) 08/27/2012 9:41 AM CDT Body Mass Index 26.03 08/27/2012 9:41 AM CDT documented in this encounter Patient Instructions Patient InstructionsSchKat welch PA-C - 08/27/2012 9:55 AM CDT Images from the original note were not included. Middle Ear Fluid: After Your Visit Your Care Instructions Fluid often builds up inside the ear during a cold or allergies. Usually the fluid drains away, but sometimes a small tube in the ear, called the eustachian tube, stays blocked for months. Symptoms of fluid buildup may include: ?? Popping, ringing, or a feeling of fullness or pressure in the ear. ?? Trouble hearing. ?? Balance problems and dizziness. In most cases, you can treat yourself at home. Follow-up care is a crawford part of your treatment and safety. Be sure to make and go to all appointments, and call your doctor if you are having problems. It's also a good idea to know your test results and keep a list of the medicines you take. How can you care for yourself at home? ?? In most cases, the fluid clears up within a few months without treatment. You may need more testsif the fluid does not clear up after 3 months. ?? If your doctor prescribed antibiotics, take them as directed. Do not stop taking them just because you feel better. You need to take the full course of antibiotics. When should you call for help? Watch closely for changes in your health, and be sure to contact your doctor if: ?? You have pain or a fever. ?? You have any new symptoms, such as hearing problems. ?? You do not get better as expected. Where can you learn more? Go to [employer] and enter S930 in the search box. Last Revised: February 11, 2010 ?? [id number] [employer]. Allergies: After Your Visit Your Care Instructions Allergies occur when your body's defense system (immune system) overreacts to certain substances. The immune system treats a harmless substance as if it were a harmful germ or virus. Many things can cause this overreaction, including pollens, medicine, food, dust, animal dander, and mold. Allergies can be mild or severe. Mild allergies can be managed with home treatment. But medicine maybe needed to prevent problems. Managing your allergies is an important part of staying healthy. Your doctor may suggest that you have allergy testing to help find out what is causing your allergies. When you know what things triggeryour symptoms, you can avoid them. This can prevent allergy symptoms and other health problems. For severe allergies that cause reactions that affect your whole body (anaphylactic reactions), yourdoctor may prescribe a shot of epinephrine (such as EpiPen) to carry with you in case you have a severe reaction. Learn how to give yourself the shot and keep it with you at all times. Make sure it is not . Follow-up care is a crawford part of your treatment and safety. Be sure to make and go to all appointments, and call your doctor if you are having problems. It's also a good idea to know your test results and keep a list of the medicines you take. How can you care for yourself at home? ?? If you have been told by your doctor that dust or dust mites are causing your allergy, decrease the dust around your bed: ?? Wash sheets, pillowcases, and other bedding in hot water every week. ?? Use dust-proof covers for pillows, duvets, and mattresses. Avoid plastic covers because they teareasily and do not breathe. Wash as instructed on the label. ?? Do not use any blankets and pillows that you do not need. ?? Use blankets that you can wash in your washing machine. ?? Consider removing drapes and carpets, which attract and hold dust, from your bedroom. ?? If you are allergic to house dust and mites, do not use home humidifiers. Your doctor can suggestways you can control dust and mites. ?? Look for signs of cockroaches. Cockroaches cause allergic reactions. Use cockroach baits to get rid of them. Then, clean your home well. Cockroaches like areas where grocery bags, newspapers, empty bottles, or cardboard boxes are stored. Do not keep these inside your home, and keep trash and food containers sealed. Seal off any spots where cockroaches might enter your home. ?? If you are allergic to mold, get rid of furniture, rugs, and drapes that smell musty. Check for mold in the bathroom. ?? If you are allergic to outdoor pollen or mold spores, use air-conditioning. Change or clean all filters every month. Keep windows closed. ?? If you are allergic to pollen, stay inside when pollen counts are high. Use a vacuum cleaner and trimmer witha HEPA filter or a double-thickness filter at least two times each week. ?? Stay inside when air pollution is bad. Avoid paint fumes, perfumes, and other strong odors. ?? Avoid conditions that make your allergies worse. Stay away from smoke. Do not smoke or let anyoneelse smoke in your house. Do not use fireplaces or wood- burning stoves. ?? If you are allergic to your pets, change the air filter in your furnace every month. Use high-efficiency filters. ?? If you are allergic to pet dander, keep pets outside or out of your bedroom. Old carpet and clothfurniture can hold a lot of animal dander. You may need to replace them. When should you call for help? Call 911 anytime you think you may need emergency care. For example, call if: ?? You have severe trouble breathing. ?? You passed out (lost consciousness). Note: After calling 911, use the allergy kit prescribed by your doctor if you have one. Watch closely for changes in your health, and be sure to contact your doctor if: ?? You need help controlling your allergies. ?? You have questions about allergy testing. ?? You do not get better as expected. Where can you learn more? Go to [employer] and enter W171 in the search box. Last Revised: May 15, 2011 ?? [id number] [employer]. documented in this encounter Progress Notes Kat Escobar PA-C - 08/27/2012 10:10 AM CDT HPI Tom Alvarado is a 46 yr male who is presenting with hearing loss and plugged sensation of the left ear for 3 days. Current home treatments so far include - aggressive cleaning with qtips. Pt reports hehas seen a little bit of blood. PMH Past medical history is significant for: allergies, no ear history ROS Other symptoms: runny nose and sneezing for a few weeks. Pt has not been taking anything for this. Medications: Current Outpatient Prescriptions Medication Sig ??? amoxicillin (AKA AMOXIL) 500 MG capsule Take 1 Cap by mouth three times a day for 7 days. ??? desonide (AKA DESOWEN) 0.05 % cream Apply topically. 1-2 times daily ??? diclofenac (AKA VOLTAREN) 50 MG enteric coated tablet TAKE 1 TABLET BY MOUTH TWO TIMES A DAY. ??? fenofibrate (AKA TRIGLIDE) 160 MG tablet Take 1 Tab by mouth daily. ??? Fish Oil Take 900 mg by mouth daily. ??? HYDROcodone-acetaminophen (AKA NORCO) 5-325 MG tablet TAKE 1 TABLET BY ORAL ROUTE EVERY 4 HOURS NEEDED FOR PAIN ??? lisinopril (AKA ZESTRIL) 20 MG tablet Take 1 Tab by mouth daily. ??? omeprazole (PRILOSEC) 20 MG capsule Take 20 mg by mouth. 1-2 times weekly ??? ranitidine (AKA ZANTAC) 300 MG tablet Take 1 Tab by mouth daily at bedtime. ??? tolterodine (AKA DETROL LA) 4 MG 24 hour release capsule Take 1 Cap by mouth daily. ??? valacyclovir (AKA VALTREX) 500 MG tablet Take 1 Tab by mouth two times a day. Allergies: Review of patient's allergies indicates no known allergies. Objective Vitals: BP 117/66 Pulse 72 Temp(Src) 98.2 ??F (36.8 ??C) (Oral) Resp 18 Ht 6' 1.5 (1.867 m) Wt 200 lb (90.719 kg) BMI 26.03 kg/m2 Appearance: well developed, well nourished and in no acute distress Ears: R TM WNL: pearly, sims with good light reflex L TM dull and opacified, small amount of blood in EAC from trauma Test Results: Rapid Strep: Not done Throat Culture: not done Assessment 1. Left otitis media amoxicillin (AKA AMOXIL) 500 MG capsule 2. Allergic rhinitis Plan See patient education and prescribed medication Kat Escobar PA-C documented in this encounter Plan of Treatment Not on filedocumented as of this encounter Visit Diagnoses Diagnosis Left otitis media - Primary Unspecified otitis media Allergic rhinitis Allergic rhinitis, cause unspecified documented in this encounter Care Teams Fios Line Installer Relationship Specialty Start Date End Date Yaneth Dodd MD PCP - General 08/01/09 04/28/17 [address] [place] [address] documented as of this encounter
--- OUTSIDE RECORDS SUMMARY | 2022-01-16 08:05 | XMS_ITS | Encounter Summary ---
:1965 Author Organization [facility] Address [address] [place] [address] Care Team Providers Name Role Phone Yaneth Dodd MD Primary Care Provider Reason for Visit Reason Comments Refill Encounter Details Date Type Department Care Team Description 08/16/2012 Refill [facility] Yaneth Dodd MD Refill [address] [facility] [address] [place], [place] [address] [place] [address] [phone] (Wo rk) Social History Tobacco Use Types Packs/Day Years Used Date Smoking Tobacco: Former Cigarettes 0.5 3 Cigars Smokeless Tobacco: Never Comments: Occasional cigar Alcohol Use Standard Drinks/Week Comments Yes 0 (1 standard drink = 0.6 oz pure alcoho l) Rare Sex Assigned at Date Recorded Not on file documented as of this encounter Nursing Notes Jessica Baez RN - 08/18/2012 8:23 AM CDT RN is unable to fill, because it does not meet medication refill standing order criteria. No Standing Orders Exist Last office visit: 05/12/12 Last time med was ordered: Date: 05/03/12 Dispensed: 60 Number of refills: 2 documented in this encounter Plan of Treatment Not on filedocumented as of this encounter Visit Diagnoses Not on filedocumented in this encounter Care Teams Laborer Filter Plant Relationship Specialty Start Date End Date Yaneth Dodd MD PCP - General 08/01/09 04/28/17 [address] [place] [address] documented as of this encounter
--- OUTSIDE RECORDS SUMMARY | 2022-01-16 08:05 | XMS_ITS | Encounter Summary ---
:1965 Author Organization [facility] Address [address] [place] [address] Care Team Providers Name Role Phone Yaneth Dodd MD Primary Care Provider Reason for Visit Reason Comments Refill Encounter Details Date Type Department Care Team Description 04/05/2013 Refill [facility] Briana Vazquez PAAshleyC Refill [address] [facility] [address] [place], [place] [address] [place] [address] [phone] (Wo rk) Social History Tobacco Use Types Packs/Day Years Used Date Smoking Tobacco: Former Cigarettes 0.5 3 Cigars Smokeless Tobacco: Never Comments: Occasional cigar Alcohol Use Standard Drinks/Week Comments Yes 0 (1 standard drink = 0.6 oz pure alcoho l) Rare Sex Assigned at Date Recorded Not on file documented as of this encounter Nursing Notes Interface, Out Surescripts Prov Query - 04/05/2013 1:47 PM CST HYDROcodone-acetaminophen (AKA NORCO) 5-325 MG tablet [Pharmacy Med Name: HYDROCODONE-APAP 5-325 TABLET] - REFILL: Review - REASON #1: Medication is not assigned to a protocol. - REASON #2: Medication is a controlled substance. - PROTOCOL: None Exists - LAST PRIMARY CARE VISIT: 05/12/2012 - NEXT PRIMARY CARE VISIT: None - LAST REFILLED ON: 02/17/2013, QTY: 30, Refills: 0, Sig: take 1 tablet by oral route every 4 hours as needed for pain (unchanged) Powered by [employer], Reference: [id number], 04/05/2013 LEWARE ENGINEER Interface, Out GTRAN Query - 04/05/2013 1:47 PM CSTThe following is the most recent Careplan note pulled in Raquel: The patient suffers from chronic low back pain. Currently, he uses 30tablets of hydrocodone 5-325 mg every month. He has been very compliant. LEWARE ENGINEER documented in this encounter Plan of Treatment Not on filedocumented as of this encounter Visit Diagnoses Not on filedocumented in this encounter Care Teams Sweater Designer Relationship Specialty Start Date End Date Yaneth Dodd MD PCP - General 08/01/09 04/28/17 [address] [place] [address] documented as of this encounter
--- OUTSIDE RECORDS SUMMARY | 2022-01-16 08:05 | XMS_ITS | Encounter Summary ---
:1965 Author Organization [facility] Address [address] [place] [address] Care Team Providers Name Role Phone Yaneth Dodd MD Primary Care Provider Reason for Visit Reason Comments Refill Encounter Details Date Type Department Care Team Description 02/17/2013 Refill [facility] Mervin Mckeon MD Refill Medicine [address] [place] [address] [place] [address] [place] [address] [phone] Social History Tobacco Use Types Packs/Day Years Used Date Smoking Tobacco: Former Cigarettes 0.5 3 Cigars Smokeless Tobacco: Never Comments: Occasional cigar Alcohol Use Standard Drinks/Week Comments Yes 0 (1 standard drink = 0.6 oz pure alcoho l) Rare Sex Assigned at Date Recorded Not on file documented as of this encounter ED Notes Jose Juan Alvarez [employer] Prov Query - 02/17/2013 1:05 PM CST Order(s) created erroneously. Erroneous order ID: [id number] Order moved by: OPAL ALVAREZ Order move date/time: 02/17/2013 1:05 PM Source Patient: [id number] Source Contact: 02/17/2013 Destination Patient: [id number] Destination Contact: 02/17/2013 LATION ENGINEER documented in this encounter Plan of Treatment Not on filedocumented as of this encounter Visit Diagnoses Not on filedocumented in this encounter Care Teams Goodyear Stitcher Relationship Specialty Start Date End Date Yaneth Dodd MD PCP - General 08/01/09 04/28/17 [address] [place] [address] documented as of this encounter
--- OUTSIDE RECORDS SUMMARY | 2022-01-16 08:05 | XMS_ITS | Encounter Summary ---
:1965 Author Organization [facility] Address [address] [place] [address] Care Team Providers Name Role Phone Yaneth Dodd MD Primary Care Provider Reason for Visit Reason Onset Date Comments LOBBY CONCIERGE Request 05/03/2012 Encounter Details Date Type Department Care Team Description 05/03/2012 Pharm[facility] Pharmac y Nan Verdin LOBBY CONCIERGE Request [id number] [facility] [address] [place], [place] [address] [place] [address] [phone] (Wo rk) Social History Tobacco Use Types Packs/Day Years Used Date Smoking Tobacco: Former Cigarettes 0.5 3 Cigars Comments: Occasional cigar Alcohol Use Standard Drinks/Week Comments Yes 0 (1 standard drink = 0.6 oz pure alcoho l) Rare Sex Assigned at Date Recorded Not on file documented as of this encounter Nursing Notes Nan Verdin - 05/11/2012 8:30 AM CST Prescription Monitoring Program information pulled and delivered to care team on 05/11/12. Nan Wren PHARMD S OPERATIONS DIRECTOR Inocencia Cherry - 05/03/2012 11:55 AM CST Can you please pull the information from the Prescription Monitoring Program for this patient: Theirappt. is on May [address] Dodd. S OPERATIONS DIRECTOR documented in this encounter Plan of Treatment Not on filedocumented as of this encounter Visit Diagnoses Not on filedocumented in this encounter Care Teams Vaccine Specialist Relationship Specialty Start Date End Date Yaneth Dodd MD PCP - General 08/01/09 04/28/17 [address] [place] [address] documented as of this encounter
--- OUTSIDE RECORDS SUMMARY | 2022-01-16 08:05 | XMS_ITS | Encounter Summary ---
:1965 Author Organization [employer] Address [address] [place] [address] Care Team Providers Name Role Phone Yaneth Dodd MD Primary Care Provider Reason for Visit Reason Comments Refill Encounter Details Date Type Department Care Team Description 05/11/2011 Refill [facility] Yaneth Dodd MD Refill [address] [facility] [address] [place], [place] [address] [place] [address] [phone] (Wo rk) Social History Tobacco Use Types Packs/Day Years Used Date Smoking Tobacco: Former Cigarettes 0.5 3 Cigars Comments: Occasional cigar Alcohol Use Standard Drinks/Week Comments Yes 0 (1 standard drink = 0.6 oz pure alcoho l) Rare Sex Assigned at Date Recorded Not on file documented as of this encounter Nursing Notes Rosalio Luther - 05/13/2011 12:52 PM CST Letter was sent to patient. X ADMIN ENGINEER Omaira Chen RN - 05/13/2011 12:22 PM CST Please inform patient due for fasting labs. RN filled 3 month supply to cover patient until seen. Per standing order. Omaira Chen RN 05/13/2011 12:21 PM X ADMIN ENGINEER documented in this encounter Plan of Treatment Not on filedocumented as of this encounter Results ALT (SGPT) (05/06/2012 10:21 AM LINUX ADMIN ENGINEER) P athologist Signature ALT (SGPT) 36 0 - 69 U/L [facility] Specimen Anatomical Collection Method Collection Time Receive d Time (Source) Location / / Volume Laterality 05/06/2012 10:21 05/06/2012 AM LINUX ADMIN ENGINEER 10:25 AM LINUX ADMIN ENGINEER Yaneth Dodd MD LAB_1 Performing Organization Address City/[facility] Phon e Number [facility] [phone] [facility] [address] [place] [address] (ABNORMAL) LIPID PANEL AND DIRECT LDL (05/06/2012 10:21 AM LINUX ADMIN ENGINEER) [facility] gist Method Time Signature Cholesterol 184 0 - 199 [facility] mg/dl Triglyceride 96 0 - 149 [facility] mg/dl HDL 39 (L) >40 mg/dl [facility] LDL, Calc. 126 0 - 129 [facility] mg/dl Non HDL Chol, 145 mg/dl [facility] Calc Hours Fasting 12 hours [facility] Specimen Anatomical Collection Method Collection Time Receive d Time (Source) Location / / Volume Laterality 05/06/2012 10:21 05/06/2012 AM LINUX ADMIN ENGINEER 10:25 AM LINUX ADMIN ENGINEER Yaneth Dodd MD LAB_1 Performing Organization Address City/[facility] Phon e Number [facility] [address] [address] documented in this encounter Visit Diagnoses Diagnosis Hyperlipidemia LDL goal < 130 (HRC) - Pr imary Other and unspecified hyperlipidemia Hypertension (HRC) Unspecified essential hypertension documented in this encounter Care Teams Millwright Helper Relationship Specialty Start Date End Date Yaneth Dodd MD PCP - General 08/01/09 04/28/17 [address] [place] [address] documented as of this encounter
--- OUTSIDE RECORDS SUMMARY | 2022-01-16 08:05 | XMS_ITS | Encounter Summary ---
:1965 Author Organization [facility] Address [address] [address] Care Team Providers Name Role Phone Yaneth Dodd MD Primary Care Provider Encounter Details Date Type Department Care Team Description 05/06/2012 Orders Only [facility] Hyperlipidemia LDL goal < 13 0; [address] [facility] Hypertension; [place], [place] [address] Decreased libido [phone] Social History Tobacco Use Types Packs/Day Years [...] Name Priority Date/Time Associated Diagnosis Comme nts TESTOSTERONE,TOTAL Routine 05/06/2012 10:21 Decreased libido R esults for this ,FREE & AM GAS USAGE METER CLERK procedure are i n BIOAVAILABLE, the results MALES section. LIPID PANEL AND Routine 05/06/2012 10:21 Hyperlipidemia LDL go al Results for this DIRECT LDL(IF AM GAS USAGE METER CLERK < 130 procedure are in NEEDED) the results section. BASIC METABOLIC Routine 05/06/2012 10:21 Hypertension Results for this PANEL AM GAS USAGE METER CLERK procedure are i n the results section. ALT (SGPT) Routine 05/06/2012 10:21 Hyperlipidemia LDL goal Results for this AM GAS USAGE METER CLERK < 130 procedure are i n the results section. documented in this encounter Results BASIC METABOLIC PANEL (05/06/2012 10:21 AM GAS USAGE METER CLERK) Analysis Performed At [facility] Time Signature BUN 16 7 - 20 [facility] mg/dl Sodium 138 135 - 145 [facility] mmol/L Potassium 4.7 3.5 - 5.3 [facility] mmol/L Chloride 101 95 - 106 [facility] mmol/L CO2 26 22 - 30 [facility] mmol/L Glucose 104 70 - 180 [facility] mg/dl Creatinine 1.08 0.66 - [facility] 1.25 mg/dl GFR, Estimated >60.0 >60 [facility] ml/min/1.7 3m2 GFR, Est., If >60.0 >60 [facility] Black ml/min/1.7 3m2 Calcium 9.8 8.4 - 10.2 [facility] mg/dl Anion Gap 11 7 - 16 [facility] (calc.) mmol/L Specimen Anatomical Collection Method Collection Time Receive d Time (Source) Location / / Volume Laterality 05/06/2012 10:21 05/06/2012 AM GAS USAGE METER CLERK 10:25 AM GAS USAGE METER CLERK Yaneth Dodd MD LAB_1 Performing Organization Address [facility] Phon e Number [facility] [employer] [phone] [phone] TESTOSTERONE,TOTAL,FREE & BIOAVAILABLE (05/06/2012 10:21 AM GAS USAGE METER CLERK) athologist Signature Sex Horm Bind 27 13 - 74 [facility] Glob nmol/L Testosterone, 273 183 - 703 [facility] Total ng/dl Testosterone, 6.0 3.8 - 12.8 [facility] Free ng/dl Testosterone, 140.0 89.0 - [facility] Bioav. 300.0 ng/dl Specimen Anatomical Collection Method Collection Time Receive d Time (Source) Location / / Volume Laterality 05/06/2012 10:21 05/06/2012 AM GAS USAGE METER CLERK 10:25 AM GAS USAGE METER CLERK Yaneth Dodd MD LAB_1 Performing Organization Address [facility] Phon e Number [facility] [employer] [phone] [phone] ALT (SGPT) (05/06/2012 10:21 AM GAS USAGE METER CLERK) P athologist Signature ALT (SGPT) 36 0 - 69 U/L [facility] Specimen Anatomical Collection Method Collection Time Receive d Time (Source) Location / / Volume Laterality 05/06/2012 10:21 05/06/2012 AM GAS USAGE METER CLERK 10:25 AM GAS USAGE METER CLERK Yaneth Dodd MD LAB_1 Performing Organization Address City/[facility] Phon e Number [facility] [phone] [facility] [address] [address] (ABNORMAL) LIPID PANEL AND DIRECT LDL (05/06/2012 10:21 AM GAS USAGE METER CLERK) [facility] gist Method Time Signature Cholesterol 184 0 - 199 [facility] mg/dl Triglyceride 96 0 - 149 [facility] mg/dl HDL 39 (L) >40 mg/dl [facility] LDL, Calc. 126 0 - 129 [facility] mg/dl Non HDL Chol, 145 mg/dl [facility] Calc Hours Fasting 12 hours [facility] Specimen Anatomical Collection Method Collection Time Receive d Time (Source) Location / / Volume Laterality 05/06/2012 10:21 05/06/2012 AM GAS USAGE METER CLERK 10:25 AM GAS USAGE METER CLERK Yaneth Dodd MD LAB_1 Performing Organization Address City/[facility] Phon e Number [facility] [phone] [address] documented in this encounter Visit Diagnoses Diagnosis Hyperlipidemia LDL goal < 130 (HRC) Other and unspecified hyperlipidemia Hypertension (HRC) Unspecified essential hypertension Decreased libido documented in this encounter Care Teams Equipment Operator Relationship Specialty Start Date End Date Yaneth Dodd MD PCP - General 08/01/09 04/28/17 [address] [place] [address] documented as of this encounter
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
--- OUTSIDE RECORDS SUMMARY | 2022-01-16 08:05 | XMS_ITS | Encounter Summary ---
:1965 Author Organization [facility] Address [address] [place] [address] Care Team Providers Name Role Phone Yaneth Dodd MD Primary Care Provider Reason for Visit Reason Onset Date Comments Refill 09/23/2012 Encounter Details Date Type Department Care Team Description 09/23/2012 Refill [facility] Yaneth Dodd MD Refill [address] [facility] [address] [place], [place] [address] [place] [address] [phone] (Wo rk) Social History Tobacco Use Types Packs/Day Years Used Date Smoking Tobacco: Former Cigarettes 0.5 3 Cigars Smokeless Tobacco: Never Comments: Occasional cigar Alcohol Use Standard Drinks/Week Comments Yes 0 (1 standard drink = 0.6 oz pure alcoho l) Rare Sex Assigned at Date Recorded Not on file documented as of this encounter Nursing Notes Kathy Singh RN - 09/27/2012 8:26 AM CDT Prescription sent to incorrect Provider, please route to the appropriate authorizing provider Chavo Rios MD who is managing this problem. Thank you Kathy Singh RN central refill center Lenora Jane - 09/23/2012 8:44 AM CDT Last fill on 06/06/13 for a quantity of 30 documented in this encounter Plan of Treatment Not on filedocumented as of this encounter Visit Diagnoses Not on filedocumented in this encounter Care Teams Hematology Technician Relationship Specialty Start Date End Date Yaneth Dodd MD PCP - General 08/01/09 04/28/17 [address] [place] [address] documented as of this encounter
--- OUTSIDE RECORDS SUMMARY | 2022-01-16 08:05 | XMS_ITS | Encounter Summary ---
:1965 Author Organization [facility] Address [address] [place] [address] Care Team Providers Name Role Phone Yaneth Dodd MD Primary Care Provider Reason for Visit Reason Comments Refill Encounter Details Date Type Department Care Team Description 07/21/2011 Refill [facility] Yaneth Dodd MD Refill [address] [facility] [address] [place], [place] [address] [place] [address] [phone] (Wo rk) Social History Tobacco Use Types Packs/Day Years Used Date Smoking Tobacco: Former Cigarettes 0.5 3 Cigars Comments: Occasional cigar Alcohol Use Standard Drinks/Week Comments Yes 0 (1 standard drink = 0.6 oz pure alcoho l) Rare Sex Assigned at Date Recorded Not on file documented as of this encounter Nursing Notes Georgie Moya RN - 07/22/2011 1:07 PM CDT RN is unable to fill, because it does not meet medication refill standing order criteria. No Standing Orders Exist diclofenac (AKA VOLTAREN) 50 MG enteric coated tablet 180 Tab 0 10/01/2010 Last office visit: 08/26/10 Last time med was ordered: Date: 10/01/10 Dispensed: 180 Number of refills: 0 documented in this encounter Plan of Treatment Not on filedocumented as of this encounter Visit Diagnoses Not on filedocumented in this encounter Care Teams Program Management Specialist Relationship Specialty Start Date End Date Yaneth Dodd MD PCP - General 08/01/09 04/28/17 [address] [place] [address] documented as of this encounter
--- OUTSIDE RECORDS SUMMARY | 2022-01-16 08:05 | XMS_ITS | Encounter Summary ---
:1965 Author Organization [facility] Address [address] [place] [address] Care Team Providers Name Role Phone Yaneth Dodd MD Primary Care Provider Encounter Details Date Type Department Care Team Description 05/12/2012 Orders Only [facility] [address] [place], [place] [address] Social History Tobacco Use [...] Name Priority Date/Time Associated Diagnosis Comme nts DRUG SCREEN-PAIN Routine 05/12/2012 10:37 AM Screening Resu lts for this MANAGEMENT, URINE BATH STEWARD procedure are in the results section. documented in this encounter Results DRUG SCREEN-PAIN MANAGEMENT, URINE (05/12/2012 10:37 AM BATH STEWARD) Component Value Ref Test Analysis Performed At [facility] Method Time Signature Drug Screen, Urine Urine [...] NERS pH Urine,Tox 6.7 [facility] Performed at [facility] Creatinine 43.7 mg/dL [facility] Urine,Tox Comment: Performed at [facility] Codeine TLD Unknown [facility] Morphine TLD Unknown [facility] Hydrocodone TLD Unknown [facility] Hydromorphone TLD Unknown [facility] Oxycodone TLD Unknown [facility] Oxymorphone TLD Unknown [facility] Specimen Anatomical Collection Method Collection Time Receive d Time (Source) Location / / Volume Laterality Urine specimen 05/12/2012 10:37 3 (specimen) AM BATH STEWARD 10:38 AM BATH STEWARD Yaneth Dodd MD LAB_1 Performing Organization Address City/State/ZIP Code Phon e Number [facility] [phone] [facility] [address] [address] documented in this encounter Visit Diagnoses Diagnosis Screening Screening for unspecified condition documented in this encounter Care Teams Metallography Teacher Relationship Specialty Start Date End Date Yaneth Dodd MD PCP - General 08/01/09 04/28/17 [address] [place] [address] documented as of this encounter
--- OUTSIDE RECORDS SUMMARY | 2022-01-16 08:05 | XMS_ITS | Encounter Summary ---
:1965 Author Organization [facility] Address [address] [place] [address] Care Team Providers Name Role Phone Yaneth Dodd MD Primary Care Provider Reason for Visit Reason Comments Refill Encounter Details Date Type Department Care Team Description 08/10/2011 Refill [facility] Yaneth Dodd MD Refill [address] [facility] [address] [place], [place] [address] [place] [address] [phone] (Wo rk) Social History Tobacco Use Types Packs/Day Years Used Date Smoking Tobacco: Former Cigarettes 0.5 3 Cigars Comments: Occasional cigar Alcohol Use Standard Drinks/Week Comments Yes 0 (1 standard drink = 0.6 oz pure alcoho l) Rare Sex Assigned at Date Recorded Not on file documented as of this encounter Nursing Notes Maryam Vasquez RN - 08/11/2011 10:35 AM CDT RN is unable to fill, because it does not meet medication refill standing order criteria. 1) will send to provider to review as patient has not f/u as requested. OK for refill? Standing Orders Exist Last Labs as appropriate for medication: 06-11-10 Last time med was ordered: lisinopril Date: 05-11-11 Dispensed: 90 Number of refills: 0 Last time med was ordered: fenofibrate Date: 03-21-11 Dispensed: 90 Number of refills: 1 RN is unable to fill, because it does not meet medication refill standing order criteria. No Standing Orders Exist Last office visit: 08-26-10 Last time med was ordered: vicodin Date: 07-09-11 Dispensed: 15 Number of refills: 0 Careplan: not updated Yaneth Dodd 02/05/2010 11:38 AM Signed Nicanor is a 44-year-old male who suffers from chronic back pain. He has had four surgeries of his lower back including three laminectomies and one fusion. He gets intermittent flares of his back symptoms. We have agreed on 15 tablets of Vicodin monthly. If he should require more than that, he will need to come and talk to me. Maryam Vasquez RN 08/11/2011, 10:36 AM documented in this encounter Plan of Treatment Not on filedocumented as of this encounter Visit Diagnoses Not on filedocumented in this encounter Care Teams Publishing Editor Relationship Specialty Start Date End Date Yaneth Dodd MD PCP - General 08/01/09 04/28/17 [address] [place] [address] documented as of this encounter
--- OUTSIDE RECORDS SUMMARY | 2022-01-16 08:05 | XMS_ITS | Encounter Summary ---
:1965 Author Organization [facility] Address [address] [place] [address] Care Team Providers Name Role Phone Yaneth Dodd MD Primary Care Provider Reason for Visit Reason Comments Refill Encounter Details Date Type Department Care Team Description 11/20/2012 Refill [facility] Yaneth Dodd MD Refill [address] [facility] [address] [place], [place] [address] [place] [address] [phone] (Wo rk) Social History Tobacco Use Types Packs/Day Years Used Date Smoking Tobacco: Former Cigarettes 0.5 3 Cigars Smokeless Tobacco: Never Comments: Occasional cigar Alcohol Use Standard Drinks/Week Comments Yes 0 (1 standard drink = 0.6 oz pure alcoho l) Rare Sex Assigned at Date Recorded Not on file documented as of this encounter Nursing Notes Jessica Baez RN - 11/20/2012 12:15 PM CDT RN is unable to refill. Date of last visit: 05/12/12 Last time med was ordered: Date: 10/21/12 Dispensed: 30 Number of refills: 0 Careplan: YES, copy of careplan: The patient suffers from chronic low back pain. Currently, he uses 30 tablets of hydrocodone 5-325 mg every month. He has been very compliant. documented in this encounter Plan of Treatment Not on filedocumented as of this encounter Visit Diagnoses Not on filedocumented in this encounter Care Teams Couture Alterations Dressmaker Relationship Specialty Start Date End Date Yaneth Dodd MD PCP - General 08/01/09 04/28/17 [address] [place] [address] documented as of this encounter
--- OUTSIDE RECORDS SUMMARY | 2022-01-16 08:06 | XMS_ITS | Encounter Summary ---
:1965 Author Organization [facility] [employer] Address [address], [place] [address] Care Team Providers Name Role Phone Yaneth Dodd MD Primary Care Provider Reason for Visit Reason Comments IMMUNIZATIONS Encounter Details Date Type Department Care Team Description 05/01/2010 Office Visit [facility] for DTP (Primary Department Dx) [address] [place], [place] [address] Social History Tobacco Use Types Packs/Day Years Used Date Smoking Tobacco: Former Cigarettes 0.5 3 Cigars Comments: Occasional cigar Alcohol Use Standard Drinks/Week Comments Yes 0 (1 standard drink = 0.6 oz pure alcoho l) Rare Sex Assigned at Date Recorded Not on file documented as of this encounter Progress Notes Rosa Suarez LPN - 05/01/2010 11:15 AM CST Nicanor Alvarado here for injection(s). ordered per standing order . See orders. Contraindications and side effects discussed with patient patient verbalized understanding of risks, possible side effects, and benefits of the injection and gave permission to administer the stated immunization(s). No precautions or contraindications noted. Tolerated injection well. See immunization/injection report for administration documentation. Rosa Suarez LPN MACHINE OPERATOR documented in this encounter Plan of Treatment Not on filedocumented as of this encounter Visit Diagnoses Diagnosis Need for prophylactic vaccination with c ombined [id number] (DTP) vaccine - Primary documented in this encounter Care Teams Information Technology Architect Relationship Specialty Start Date End Date Yaneth Dodd MD PCP - General 08/01/09 04/28/17 [address] [place] [address] documented as of this encounter
--- OUTSIDE RECORDS SUMMARY | 2022-01-16 08:06 | XMS_ITS | Encounter Summary ---
:1965 Author Organization [facility] Address [address] [place] [address] Care Team Providers Name Role Phone Yaneth Dodd MD Primary Care Provider Reason for Visit Reason Onset Date Comments Refill 03/21/2011 lisinopril Encounter Details Date Type Department Care Team Description 03/21/2011 Refill [facility] Chris Dodd MD Refill (lisinopril) Practice [address] [place] [address] [place] [address] [place] [address] [phone] Social History Tobacco Use Types Packs/Day Years Used Date Smoking Tobacco: Former Cigarettes 0.5 3 Cigars Comments: Occasional cigar Alcohol Use Standard Drinks/Week Comments Yes 0 (1 standard drink = 0.6 oz pure alcoho l) Rare Sex Assigned at Date Recorded Not on file documented as of this encounter Nursing Notes Claudia Guzman RN - 03/24/2011 8:41 AM CST Per standing order. Claudia Guzman RN 03/24/2011, 8:40 AM CHAIRMAN Maria E Navarrete - 03/21/2011 10:05 AM CST Last fill from a Pharmacy on 02/10/2011 for a quantity of 90. CHAIRMAN documented in this encounter Plan of Treatment Not on filedocumented as of this encounter Visit Diagnoses Not on filedocumented in this encounter Care Teams Billet Worker Relationship Specialty Start Date End Date Yaneth Dodd MD PCP - General 08/01/09 04/28/17 [address] [place] [address] documented as of this encounter
--- OUTSIDE RECORDS SUMMARY | 2022-01-16 08:06 | XMS_ITS | Encounter Summary ---
:1965 Author Organization [employer] Address [address] [place] [address] Care Team Providers Name Role Phone Yaneth Strong MD Primary Care Provider Reason for Visit Reason Onset Date Comments Refill 04/15/2010 Encounter Details Date Type Department Care Team Description 04/15/2010 Refill [facility] Martin Braswell MD Refill [address] [place], [place] [address] [place] [address] [phone] (Wo rk) Social History Tobacco Use Types Packs/Day Years Used Date Smoking Tobacco: Former Cigarettes 0.5 3 Cigars Comments: Occasional cigar Alcohol Use Standard Drinks/Week Comments Yes 0 (1 standard drink = 0.6 oz pure alcoho l) Rare Sex Assigned at Date Recorded Not on file documented as of this encounter Nursing Notes Yaneth Strong MD - 04/15/2010 9:28 AM CSTApproved Prescriptions: Disp Refills HYDROcodone-acetaminophen (AKA VICODIN,LORT15 Tab 0Sig: Take 1 Tab by mouth every 6 hours as needed for Pain for 10 days.Authorizing Provider: YANETH STRONG NAILER Ninfa Matos RN, BSN - 04/15/2010 8:40 AM HAND NAILER Pending Prescriptions: Disp Refills HYDROcodone-acetaminophen (AKA VICODIN,LORT15 Tab 0 Sig: Take 1 Tab by mouth every 6 hours as needed for Pain for 10 days. NAILER Ninfa Matos RN, BSN - 04/15/2010 8:40 AM CST RN is unable to refill. Date of last visit: 03-12-10 Narcotic Careplan: YES, copy of careplan: Yaneth Strong 02/05/10 11:38 AM Signed Nicanor is a 44-year-old male who suffers from chronic back pain. He has had four surgeries of his lower back including three laminectomies and one fusion. He gets intermittent flares of his back symptoms. We have agreed on 15 tablets of Vicodin monthly. If he should require more than that, he will need to come and talk to me. NAILER Katt Anderson - 04/15/2010 7:30 AM CST Last fill on 03/14/10 for a quantity of 15 NAILER documented in this encounter Plan of Treatment Not on filedocumented as of this encounter Visit Diagnoses Not on filedocumented in this encounter Care Teams Inspector Materials And Processes Relationship Specialty Start Date End Date Yaneth Strong MD PCP - General 08/01/09 04/28/17 [address] [place] [address] documented as of this encounter
--- OUTSIDE RECORDS SUMMARY | 2022-01-16 08:06 | XMS_ITS | Encounter Summary ---
:1965 Author Organization [facility] Address [address] [place] [address] Care Team Providers Name Role Phone Yaneth Dodd MD Primary Care Provider Reason for Visit Reason Onset Date Comments Refill 06/13/2010 Encounter Details Date Type Department Care Team Description 06/13/2010 Refill [facility] Yaneth Dodd MD Refill [address] [facility] [address] [place], [place] [address] [place] [address] [phone] (Wo rk) Social History Tobacco Use Types Packs/Day Years Used Date Smoking Tobacco: Former Cigarettes 0.5 3 Cigars Comments: Occasional cigar Alcohol Use Standard Drinks/Week Comments Yes 0 (1 standard drink = 0.6 oz pure alcoho l) Rare Sex Assigned at Date Recorded Not on file documented as of this encounter Nursing Notes Marilyn Toro MD - 06/13/2010 11:58 AM CDTApproved Prescriptions: Disp Refills HYDROcodone-acetaminophen (AKA VICODIN,LORT15 Tab 0Sig: Take 1 Tab by mouth every 6 hours as needed.Authorizing Provider: MARILYN TORO Ninfa Matos RN, BSN - 06/13/2010 10:24 AM CDT Pending Prescriptions: Disp Refills HYDROcodone-acetaminophen (AKA VICODIN,LORT15 Tab 0 Sig: Take 1 Tab by mouth every 6 hours as needed. Ninfa Matos RN, BSN - 06/13/2010 10:24 AM CDT RN is unable to refill. Date of last visit: 04-29-10; last Rx 05-09-10 Narcotic Careplan: YES, copy of careplan: Yaneth Dodd [...] need to come and talk to me. Oma Randolph - 06/13/2010 10:10 AM CDT Last fill on 05/12/2010 for a quantity of 15 documented in this encounter Plan of Treatment Not on filedocumented as of this encounter Visit Diagnoses Not on filedocumented in this encounter Care Teams Internal Control Consultant Relationship Specialty Start Date End Date Yaneth Dodd MD PCP - General 08/01/09 04/28/17 [address] [place] [address] documented as of this encounter
--- OUTSIDE RECORDS SUMMARY | 2022-01-16 08:06 | XMS_ITS | Encounter Summary ---
:1965 Author Organization [employer] Address [address] [place] [address] Care Team Providers Name Role Phone Yaneth Dodd MD Primary Care Provider Encounter Details Date Type Department Care Team Description 03/10/2010 Orders Only [facility] Hyperlipidemia LDL goal < 13 0; [address] [facility] Screening for iron deficienc y anemia; [place], [place] [address] Hypertension; [phone] Encounter for l alicia-term (current) use of other medications Social History Tobacco Use Types Packs/Day Years [...] Diagnosis Comme nts LIPID PANEL AND Routine 03/10/2010 10:01 Hyperlipidemia LDL Re sults for this DIRECT LDL(IF AM CLAIM PROFESSIONAL goal < 130 procedure are in NEEDED) the results section. CREATININE / GFR Routine 03/10/2010 10:01 Hypertension Results for this AM CLAIM PROFESSIONAL Encounter for procedure are in long-term (current) the resu lts use of other section. medications COMPLETE BLOOD Routine 03/10/2010 10:01 Screening for iron Res ults for this COUNT-NO DIFF AM CLAIM PROFESSIONAL deficiency anemia procedure are in the results section. ALT (SGPT) Routine 03/10/2010 10:01 Encounter for Results fo r this AM CLAIM PROFESSIONAL long-term (current) procedur e are in use of other the results medications section. Hyperlipidemia LDL goal < 130 POTASSIUM Routine 03/10/2010 10:01 Hypertension Results for this AM CLAIM PROFESSIONAL Encounter for procedure are in long-term (current) the resu lts use of other section. medications documented in this encounter Results ALT (SGPT) (03/10/2010 10:01 AM CLAIM PROFESSIONAL) athologist Signature ALT (SGPT) 24 0 - 69 U/L [facility] Specimen Anatomical Collection Method Collection Time Receive d Time (Source) Location / / Volume Laterality 03/10/2010 10:03/10/2010 AM CLAIM PROFESSIONAL 10:09 AM CLAIM PROFESSIONAL Yaneth Dodd MD LAB_1 Performing Organization Address [facility] Phon e Number [facility] [employer] [phone] [phone] POTASSIUM (03/10/2010 10:01 AM CLAIM PROFESSIONAL) athologist Signature Potassium 4.4 3.5 - 5.1 [facility] mmol/L Specimen Anatomical Collection Method Collection Time Receive d Time (Source) Location / / Volume Laterality 03/10/2010 10:03/10/2010 AM CLAIM PROFESSIONAL 10:09 AM CLAIM PROFESSIONAL Yaneth Dodd MD LAB_1 Performing Organization Address [facility] Phon e Number [facility] [phone] [phone] CREATININE / GFR (03/10/2010 10:01 AM CLAIM PROFESSIONAL) Analysis Performed At Patho logist Time Signature Creatinine 1.03 0.66 - [facility] 1.25 mg/dl GFR, Estimated >60.0 >60 [facility] ml/min/1.7 3m2 GFR, Est., If >60.0 >60 [facility] Black ml/min/1.7 3m2 Specimen Anatomical Collection Method Collection Time Receive d Time (Source) Location / / Volume Laterality 03/10/2010 10:01 03/10/2010 AM CLAIM PROFESSIONAL 10:09 AM CLAIM PROFESSIONAL Yaneth Dodd MD LAB_1 Performing Organization Address City/[facility]/ZIP Code Phon e Number [facility] [phone] [phone] (ABNORMAL) HEMOGRAM/PLTS (03/10/2010 10:01 AM CLAIM PROFESSIONAL) P athologist Signature WBC 6.9 4.0 - 11.0 [facility] k/ul RBC 5.06 4.5 - 5.9 [facility] M/ul Hemoglobin 14.8 13.5 - [facility] 17.5 g/dl HCT 46.2 41.0 - [facility] 53.0 % MCV 91.4 80 - 100 [facility] fl MCH 29.2 26 - 34 pg [facility] MCHC 31.9 (L) 32 - 36 [facility] g/dl RDW 14.1 11.5 - [facility] 14.5 % Platelets 286 150 - 450 [facility] k/ul Specimen Anatomical Collection Method Collection Time Receive d Time (Source) Location / / Volume Laterality 03/10/2010 10:03/10/2010 AM CLAIM PROFESSIONAL 10:09 AM CLAIM PROFESSIONAL Yaneth Dodd MD LAB_1 Performing Organization Address City/[facility]/ZIP Code Phon e Number [facility] [phone] [phone] (ABNORMAL) LIPID PANEL AND DIRECT LDL(IF NEEDED) (03/10/2010 10:01 AM CLAIM PROFESSIONAL) [facility] Method Time Signature Cholesterol 275 (H) 0 - 199 [facility] mg/dl Triglyceride 173 (H) 0 - 149 [facility] mg/dl HDL 14 (L) >40 mg/dl [facility] LDL, Calc. 226 (H) 0 - 129 [facility] mg/dl Hours Fasting 12 hours [facility] Specimen Anatomical Collection Method Collection Time Receive d Time (Source) Location / / Volume Laterality 03/10/2010 10:01 03/10/2010 AM CLAIM PROFESSIONAL 10:09 AM CLAIM PROFESSIONAL Yaneth Dodd MD LAB_1 Performing Organization Address City/[facility]/ZIP Code Phon e Number [facility] [phone] [facility] [address] [address] documented in this encounter Visit Diagnoses Diagnosis Hyperlipidemia LDL goal < 130 (HRC) Other and unspecified hyperlipidemia Screening for iron deficiency anemia Hypertension (HRC) Unspecified essential hypertension Encounter for long-term (current) use of other medications documented in this encounter Care Teams Digital Sales Planner Relationship Specialty Start Date End Date Yaneth Dodd MD PCP - General 08/01/09 04/28/17 [address] [place] [address] documented as of this encounter
--- OUTSIDE RECORDS SUMMARY | 2022-01-16 08:06 | XMS_ITS | Encounter Summary ---
:1965 Author Organization [employer] Address [address] [place] [address] Care Team Providers Name Role Phone Yaneth Dodd MD Primary Care Provider Reason for Visit Reason Comments Refill Encounter Details Date Type Department Care Team Description 05/09/2010 Refill [facility] Yaneth Dodd MD Refill [address] [facility] [address] [place] [address] [place] [address] [phone] (Wo rk) Social History Tobacco Use Types Packs/Day Years Used Date Smoking Tobacco: Former Cigarettes 0.5 3 Cigars Comments: Occasional cigar Alcohol Use Standard Drinks/Week Comments Yes 0 (1 standard drink = 0.6 oz pure alcoho l) Rare Sex Assigned at Date Recorded Not on file documented as of this encounter Nursing Notes Yaneth Dodd MD - 05/12/2010 9:47 AM ANALOG IC DESIGN ENGINEER Approved Prescriptions: Disp Refills HYDROcodone-acetaminophen (AKA VICODIN,LORT15 Tab 0 Sig: TAKE 1 TABLET EVERY 6 HOURS NEEDED FOR PAIN Authorizing Provider: YANETH DODD OG IC DESIGN ENGINEER Matos, Ninfa J, RN, BSN - 05/12/2010 9:24 AM ANALOG IC DESIGN ENGINEER Pending Prescriptions: Disp Refills HYDROcodone-acetaminophen (AKA VICODIN,ROYCE 0 Sig: TAKE 1 TABLET EVERY 6 HOURS NEEDED FOR PAIN OG IC DESIGN ENGINEER Ninfa Matos RN, BSN - 05/12/2010 9:24 AM CST RN is unable to refill. Date of last visit: 04-29-10; last Rx 04-15-10 Narcotic Careplan: YES, copy of careplan: Yaneth [...] need to come and talk to me. OG IC DESIGN ENGINEER documented in this encounter Plan of Treatment Not on filedocumented as of this encounter Visit Diagnoses Not on filedocumented in this encounter Care Teams Civil Service Worker Relationship Specialty Start Date End Date Yaneth Dodd MD PCP - General 08/01/09 04/28/17 [address] [place] [address] documented as of this encounter
--- OUTSIDE RECORDS SUMMARY | 2022-01-16 08:06 | XMS_ITS | Encounter Summary ---
:1965 [address] [employer] Address [address] [place] [address] Care Team Providers Name Role Phone Yaneth Strong MD Primary Care Provider Reason for Visit Reason Comments Refill Encounter Details Date Type Department Care Team Description 07/02/2010 Refill [facility] Yaneth Strong MD Refill [address] [facility] [address] [place], [place] [address] [place] [address] [phone] (Wo rk) Social History Tobacco Use Types Packs/Day Years Used Date Smoking Tobacco: Former Cigarettes 0.5 3 Cigars Comments: Occasional cigar Alcohol Use Standard Drinks/Week Comments Yes 0 (1 standard drink = 0.6 oz pure alcoho l) Rare Sex Assigned at Date Recorded Not on file documented as of this encounter Nursing Notes Yaneth Strong MD - 07/03/2010 9:09 AM CDTApproved Prescriptions: Disp Refills diclofenac (AKA VOLTAREN) 50 MG enteric [id number]: TAKE 1 TABLET BY MOUTH TWO TIMES A DAY.Authorizing Provider: YANETH STRONG Darleen Barbosa RN - 07/03/2010 8:58 AM CDT Pending Prescriptions: Disp Refills diclofenac (AKA VOLTAREN) 50 MG enteric co Sig: TAKE 1 TABLET BY MOUTH TWO TIMES A DAY. Darleen Barbosa RN - 07/03/2010 8:58 AM CDT RN is unable to fill diclofenac (AKA VOLTAREN) 50 MG enteric coated tablet, because it does not meetmedication refill standing order criteria. Sending to the provider to review. No Standing Orders Exist Last office visit: 06-18-10 Last time med was ordered: Date: 02-13-10 Dispensed: 180 Number of refills: 0 Darleen Triana RN 07/03/2010, 8:58 AM documented in this encounter Plan of Treatment Not on filedocumented as of this encounter Visit Diagnoses Not on filedocumented in this encounter Care Teams Meat Grinder Relationship Specialty Start Date End Date Yaneth Strong MD PCP - General 08/01/09 04/28/17 [address] [place] [address] documented as of this encounter
--- OUTSIDE RECORDS SUMMARY | 2022-01-16 08:06 | XMS_ITS | Encounter Summary ---
:1965 Author Organization [employer] Address [address] [place] [address] Care Team Providers Name Role Phone Yaneth Strong MD Primary Care Provider Reason for Visit Reason Comments Refill Encounter Details Date Type Department Care Team Description 05/03/2010 Refill [facility] Yaneth Strong MD Refill [address] [facility] [address] [place] [address] [place] [address] [phone] (Wo rk) Social History Tobacco Use Types Packs/Day Years Used Date Smoking Tobacco: Former Cigarettes 0.5 3 Cigars Comments: Occasional cigar Alcohol Use Standard Drinks/Week Comments Yes 0 (1 standard drink = 0.6 oz pure alcoho l) Rare Sex Assigned at Date Recorded Not on file documented as of this encounter Nursing Notes Masha Matos RN, BSN - 05/05/2010 8:50 AM CSTApproved Prescriptions: Disp Refills fenofibrate (AKA TRIGLIDE) 160 MG tablet 90 Tab 0Sig: TAKE ONE TABLET BY MOUTH EVERY DAYAuthorizing Provider: YANETH STRONG User: MASHA MATOS SCRIPTS CURATOR documented in this encounter Plan of Treatment Not on filedocumented as of this encounter Results ALT (SGPT) (06/11/2010 10:59 AM CDT) P athologist Signature ALT (SGPT) 42 0 - 69 U/L [facility] Specimen Anatomical Collection Method Collection Time Receive d Time (Source) Location / / Volume Laterality 06/11/2010 10:59 06/11/2010 AM CDT 11:02 AM CDT Yaneth Strong MD LAB_1 Performing Organization Address City/[facility] Phon e Number [facility] [employer] [phone] [facility] [address] [place] [address] (ABNORMAL) LIPID PANEL AND DIRECT LDL(IF NEEDED) (06/11/2010 10:59 AM CDT) [facility] gist Method Time Signature Cholesterol 148 0 - 199 [facility] mg/dl Triglyceride 168 (H) 0 - 149 [facility] mg/dl HDL 37 (L) >40 mg/dl [facility] LDL, Calc. 77 0 - 129 [facility] mg/dl Hours Fasting 13 hours [facility] Specimen Anatomical Collection Method Collection Time Receive d Time (Source) Location / / Volume Laterality 06/11/2010 10:59 06/11/2010 AM CDT 11:02 AM CDT Yaneth Strong MD LAB_1 Performing Organization Address City/[facility] Phon e Number [facility] [employer] [phone] [address] documented in this encounter Visit Diagnoses Diagnosis Hyperlipidemia LDL goal < 130 (HRC) - Pr imary Other and unspecified hyperlipidemia documented in this encounter Care Teams Needle Grader Relationship Specialty Start Date End Date Yaneth Strong MD PCP - General 08/01/09 04/28/17 [address] [place] [address] documented as of this encounter
--- OUTSIDE RECORDS SUMMARY | 2022-01-16 08:06 | XMS_ITS | Encounter Summary ---
:1965 Author Organization [facility] Address [address] [place] [address] Care Team Providers Name Role Phone Yaneth Dodd MD Primary Care Provider Reason for Visit Reason Onset Date Comments LETTER NEEDED 01/16/2011 Encounter Details Date Type Department Care Team Description 01/16/2011 Telephone [facility] Chris Dodd MD LETTER NEEDED Practice [address] [facility] [address] [place] [address] [place] [address] [phone] Social History Tobacco Use Types Packs/Day Years Used Date Smoking Tobacco: Former Cigarettes 0.5 3 Cigars Comments: Occasional cigar Alcohol Use Standard Drinks/Week Comments Yes 0 (1 standard drink = 0.6 oz pure alcoho l) Rare Sex Assigned at Date Recorded Not on file documented as of this encounter Nursing Notes Evonne Orozco - 01/19/2011 8:22 AM CST Letter will be mailed to patient. ATION SPEC Yaneth Dodd MD - 01/19/2011 7:52 AM CST Letter signed. Will give to Daryn Douglass. ATION SPEC Ninfa Matos RN, BSN - 01/16/2011 9:[address] Dodd will be able to sign the letter on Wednesday Letter pended ATION SPEC Daryn Galicia - 01/16/2011 9:43 AM CST Pt needs 2 letters Forms/Letter Request Questions: What form/letter are you requesting?: letter stating he does take HYDROcodone- acetaminophen (AKA VICODIN,LORTAB) 5-500 MG tablet for his back pain. 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 How would you like to receive this letter (If pt would like this sent anywhere other than to themselves, we need them to sign a Release of Information)?: Mailed to this address: [address] [place] [address] Is it okay to leave a detailed message on your voicemail: yes Pt aware pcp out of office today would like a call when ready ATION SPEC documented in this encounter Plan of Treatment Not on filedocumented as of this encounter Visit Diagnoses Not on filedocumented in this encounter Care Teams Induction Machine Operator Relationship Specialty Start Date End Date Yaneth Dodd MD PCP - General 08/01/09 04/28/17 [address] [place] [address] documented as of this encounter
--- OUTSIDE RECORDS SUMMARY | 2022-01-16 08:06 | XMS_ITS | Encounter Summary ---
:1965 Author Organization [employer] Address [address] [place] [address] Care Team Providers Name Role Phone Yaneth Dodd MD Primary Care Provider Reason for Visit Reason Comments CONSULT Encounter Details Date Type Department Care Team Description 05/06/2010 Office Visit [facility] Ble eding internal [facility] hemorrhoids (Primary [address] 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 Pulse 79 05/06/2010 10:09 AM AIRPORT SHUTTLE DRIVER Temperature 36.7 ??C (98.1 ??F) 05/06/2010 10:09 AM AIRPORT SHUTTLE DRIVER Respiratory Rate - - Oxygen Saturation - - Inhaled Oxygen Concentration - - Weight 101.5 kg (223 lb 12.8 oz) 05/06/2010 10:09 AM AIRPORT SHUTTLE DRIVER Height 185.4 cm (6' 1) 05/06/2010 10:09 AM AIRPORT SHUTTLE DRIVER Body Mass Index 29.53 05/06/2010 10:09 AM AIRPORT SHUTTLE DRIVER documented in this encounter Patient Instructions Patient InstructionsRohan Mendez LPN - 05/06/2010 10:54 AM CST RUBBER BAND LIGATION OF HEMORRHOIDS About one-third of all adults suffer from hemorrhoids. Common symptoms include bleeding, itching, burning, and protrusion of tissue. There is no single cause of hemorrhoids, but several factors contribute to their development. These include straining during bowel movements, chronic constipation and . Once your hemorrhoids have been diagnosed, your doctor will consider several different methods of treatment. A significant percentage of patients with hemorrhoids can be successfully treated by rubber band ligation on an outpatient basis. This treatment involves placing a small elastic band around thehemorrhoid that tightens and eventually causes the hemorrhoid to drop off. WILL IT HURT? ?? You may feel a dull ache at the time of the treatment and for the next 36 to 48 hours. You will also feel as there is a small piece of stool in your rectum which you cannot pass. ?? To relieve your discomfort, you may want to take tylenol or soak in a warm bath for 15 to 20 minutes up to 4 times a day and after each bowel movement. If you feel severe discomfort, call your physician. AFTER THE TREATMENT ?? You don't have to follow a special diet after the treatment. However, it is important to eat pleanty of whole grains, fruit, and vegetables. These foods provide the necessary fiber to keep your bowel movements soft. ?? You will be able to drive a car immediately after treatment, and you may resume all your normal activities. If you have been prescribed narcotics, you may not drive your vehicle while taking these medications. ?? The hemorrhoid will drop off in six to ten days. You probably won't be aware of this except for some occasional slight bleeding. However, if you notice blood in your stools three or four times within a matter of hours or if you pass blood clots, contact your doctor immediately. WILL I NEED MORE THAN ONE TREATMENT? ?? Bleeding and protrusion will probably continue until all your hemorrhoids have been treated. Thisusually takes two to four treatments at intervals of four to six weeks. ?? Hemorrhoids may be troublesome and uncomfortable. But with proper treatment, the symptoms can be controlled. If you have any questions or problems, don't hesitate to call. 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 His symptoms have been bothering him more over the past 1year(s). Symptoms include burning pain, fullness in the rectum and blood streaming into the toilet with every BM that started about 4 years ago only with flair ups and he has flair ups twice a month. He currently does not have a flair upand is symptom free. He denies any prolapse of tissue. Symptoms are worsened by sitting and biking, improved by Prep H, and tucks pads. Stool/BM description/managment include soft regular stools q day controlled with normal diet - though he did have back surgery in the past and was put on constipatingnarcotics at that time. ROS: Negative for fever, visual loss, hearing loss, chest pain, abdominal pain, shortness of breath,myalgias History: Past Medical History: Negative for heart problems, DM, bleeding disorder, anesthetic reaction, cancer, infectious diseases. Last colonoscopy never, results n/a. Family History: Negative for heart problems, DM, bleeding disorders, anesthetic reaction, cancer. 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 he is awake, alert, and well oriented. Filed Vitals: 05/06/10 1009 BP: 123/83 Pulse: 79 Temp: 98.1 ??F (36.7 ??C) TempSrc: Oral Height: 6' 1 (1.854 m) Weight: 223 lb 12.8 oz (101.515 kg) Rectal: 1. External Anal Skin: Negative for maceration, fissures, or skin tags 2. DEQUAN: Significant redundant tissue felt at 2 o'clock, otherwise unremarkable 3. Anoscopic exam: Large hemorrhoid seen at 2 o'clock and patient agrees to banding, did not look at left side today Procedure: Banding: (Risks included bleeding, pain, and thrombosis and were discussed with patient). We applieda double band to the 2 o'clock hemorrhoid group using a hemorrhoidal ligator and grasping forceps. We did not illicit bleeding with the exam/procedure. Patient tolerated the procedure well. Assessment: Bleeding internal hemorrhoids Plan: Hemorrhoids: Follow up in 3 weeks for reassessment and possible additional treatment. Take extra strength tylenol for pain and avoid blood thinners such as aspirin and ibuprofen. Keep stools softwith increased water and fiber. Patient will contact sooner if any questions or concerns. Judd Stephens MD Scribed by Scarlet Callaway PA-C ORT SHUTTLE DRIVER documented in this encounter Plan of Treatment Not on filedocumented as of this encounter Visit Diagnoses Diagnosis Bleeding internal hemorrhoids - Primary Internal hemorrhoids with other complica tion documented in this encounter Care Teams Metalizing Supervisor Relationship Specialty Start Date End Date Yaneth Dodd MD PCP - General 08/01/09 04/28/17 [address] [place] [address] documented as of this encounter
--- OUTSIDE RECORDS SUMMARY | 2022-01-16 08:06 | XMS_ITS | Encounter Summary ---
:1965 [address] [facility] Address [address] [place] [address] Care Team Providers Name Role Phone Yaneth Dodd MD Primary Care Provider Reason for Visit Reason Comments FOLLOW-UP,LAB Encounter Details Date Type Department Care Team Description 06/18/2010 Office Visit [facility] Yaneth Dodd [place] rlipidemia LDL goal Criselda Crowe MD < 130 (Primary Dx) [address] [facility] [address] [place] [address] [phone] Social History Tobacco Use Types Packs/Day Years Used Date Smoking Tobacco: Former Cigarettes 0.5 3 Cigars Comments: Occasional cigar Alcohol Use Standard Drinks/Week Comments Yes 0 (1 standard drink = 0.6 oz pure alcoho l) Rare Sex Assigned at Date Recorded Not on file documented as of this encounter Last Filed Vital Signs Vital Sign Reading Time Taken Comments Blood Pressure 118/70 06/18/2010 9:07 AM CDT Pulse 76 06/18/2010 9:07 AM CDT Temperature - - Respiratory Rate - - Oxygen Saturation - - Inhaled Oxygen Concentration - - Weight - - Height - - Body Mass Index - - documented in this encounter Progress Notes Yaneth Dodd MD - 06/18/2010 9:54 AM CDT Subjective: 44-year-old male in for followup on his cholesterol. Currently doing well with his medications. Current outpatient prescriptions Medication Sig ??? acyclovir (AKA ZOVIRAX) 400 MG tablet Take 1 Tab by mouth two times a day. ??? acyclovir (AKA ZOVIRAX) 800 MG tablet Take 1 Tab by mouth three times a day. ??? acyclovir 5 % cream Apply topically 4 times a day as needed. ??? atorvastatin (AKA LIPITOR) 20 MG tablet Take 1 Tab by mouth daily. ??? diclofenac (AKA VOLTAREN) 50 MG enteric coated tablet Take 1 Tab by mouth two times a day. ??? fenofibrate (AKA TRIGLIDE) 160 MG tablet TAKE ONE TABLET BY MOUTH EVERY DAY ??? HYDROcodone-acetaminophen (AKA VICODIN,LORTAB) 5-500 MG tablet Take 1 Tab by mouth every 6 hoursas needed. ??? lisinopril (AKA ZESTRIL) 10 MG tablet Take 1 Tab by mouth daily. ??? Multiple Vitamins-Iron (MULTIVITAMIN/IRON OR) Take 1 Tab by mouth daily. ??? omeprazole (AKA PRILOSEC) 20 MG capsule Take 1 Cap by mouth daily. Take 30 minutes before meal. ??? sumatriptan (AKA IMITREX) 100 MG tablet Take 1 Tab by mouth . Orders Only on 06/11/2010 Component Date Value Range Status ??? CHOLESTEROL (mg/dl) 06/11/2010 148 0-199 Final ??? TRIGLYCERIDE (mg/dl) 06/11/2010 168* 0-149 Final ? ? HDL (mg/dl) 06/11/2010 37* >40- Final ??? LDL, CALC. (mg/dl) 06/11/2010 77 0-129 Final ??? HOURS FASTING (hours) 06/11/2010 13 Final ??? ALT (SGPT) (U/L) 06/11/2010 42 0-69 Final ??? BUN (mg/dl) 06/11/2010 12 7-20 Final ??? SODIUM (mmol/L) 06/11/2010 143 135-145 Final ??? POTASSIUM (mmol/L) 06/11/2010 4.4 3.5-5.3 Final ??? CHLORIDE (mmol/L) 06/11/2010 103 95-106 Final ??? CO2 (mmol/L) 06/11/2010 28 22-30 Final ??? GLUCOSE,FASTING (mg/dl) 06/11/2010 77 70-100 Final ??? HOURS FASTING (hours) 06/11/2010 13 Final ??? CREATININE (mg/dl) 06/11/2010 1.13 0.66-1.25 Final ? ? GFR, ESTIMATED (ml/min/1.73m2) 06/11/2010 >60.0 >60- Final ? ? GFR EST IF (ml/min/1.73m2) 06/11/2010 >60.0 >60- Final ??? CALCIUM (mg/dl) 06/11/2010 9.7 8.4-10.2 Final ??? ANION GAP (CALC.) (mmol/L) 06/11/2010 11 7-16 Final His cholesterol has improved significantly. His triglycerides continue to be somewhat borderline. I am encouraged that his HDL is coming up. Objective:BP 118/70 Pulse 76 He appears well. Assessment: Hyperlipidemia, improving. Plan: We again talked about adding niacin. He is already on some type of mag vitamin that he takes twice daily. He is going to check on the niacin content of that medication. Ultimately, I would like to see him on 2 g of niacin. We talked about taking a daily aspirin prior to taking niacin. He will look at the vitamin and see how much she is already taking and then maybe add to it. We talked about the importance of minimizing alcohol and carbohydrates. I would like to have him followup in about six months. documented in this encounter Plan of Treatment Not on filedocumented as of this encounter Visit Diagnoses Diagnosis Hyperlipidemia LDL goal < 130 (HRC) - Pr imary Other and unspecified hyperlipidemia documented in this encounter Care Teams Apigee Developer Relationship Specialty Start Date End Date Yaneth Dodd MD PCP - General 08/01/09 04/28/17 [address] [place] [address] documented as of this encounter
--- OUTSIDE RECORDS SUMMARY | 2022-01-16 08:06 | XMS_ITS | Encounter Summary ---
:1965 Author Organization [employer] Address [address] [place] [address] Care Team Providers Name Role Phone Yaneth Strong MD Primary Care Provider Reason for Visit Reason Comments Refill Encounter Details Date Type Department Care Team Description 08/31/2010 Refill [facility] Yaneth Strong MD Refill [address] [facility] [address] [place] [address] [place] [address] [phone] (Wo rk) Social History Tobacco Use Types Packs/Day Years Used Date Smoking Tobacco: Former Cigarettes 0.5 3 Cigars Comments: Occasional cigar Alcohol Use Standard Drinks/Week Comments Yes 0 (1 standard drink = 0.6 oz pure alcoho l) Rare Sex Assigned at Date Recorded Not on file documented as of this encounter Nursing Notes Fatuma Holly RN - 09/01/2010 12:51 PM CDTApproved Prescriptions: Disp Refills LIPITOR 20 MG tablet 90 Tab 2Sig: TAKE 1 TABLET BY MOUTH DAILY. Authorizing Provider: YANETH STRONG User: FATUMA HOLLY documented in this encounter Plan of Treatment Not on filedocumented as of this encounter Visit Diagnoses Not on filedocumented in this encounter Care Teams Lathe Operator Relationship Specialty Start Date End Date Yaneth Strong MD PCP - General 08/01/09 04/28/17 [address] [place] [address] documented as of this encounter
--- OUTSIDE RECORDS SUMMARY | 2022-01-16 08:06 | XMS_ITS | Encounter Summary ---
:1965 Author Organization [facility] Address [address] [address] Care Team Providers Name Role Phone Yaneth Dodd MD Primary Care Provider Reason for Referral Specialty Diagnoses / Procedures Referred By Contact [place] [address] [place], [place] [address] Referral ID Status Reason Start Date Expiration Date Visits Requ ested Visits Authorized Scheduling Instructions If an appointment with [facility] or Vascular Surgery department was advised and you have not been contacted to schedule that appointment within 3 business days, please call [phone] for assistance. 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 Encounter Details Date Type Department Care Team Description 04/29/2010 Office Visit [facility] Yaneth Dodd rrhoid (Primary Practice MD Sebastien Dx) [address] [facility] [address] [place] [address] [phone] Social History Tobacco Use Types Packs/Day Years Used Date Smoking Tobacco: Former Cigarettes 0.5 3 Cigars Comments: Occasional cigar Alcohol Use Standard Drinks/Week Comments Yes 0 (1 standard drink = 0.6 oz pure alcoho l) Rare Sex Assigned at Date Recorded Not on file documented as of this encounter Last Filed Vital Signs Vital Sign Reading Time Taken Comments Blood Pressure 126/76 04/29/2010 10:20 AM WET MIX OPERATOR Pulse 92 04/29/2010 10:20 AM WET MIX OPERATOR Temperature 36.6 ??C (97.9 ??F) 04/29/2010 10:20 AM WET MIX OPERATOR Respiratory Rate 16 04/29/2010 10:20 AM WET MIX OPERATOR Oxygen Saturation - - Inhaled Oxygen Concentration - - Weight - - Height - - Body Mass Index - - documented in this encounter Progress Notes Yaneth Dodd MD - 04/29/2010 11:42 AM CST Subjective: 44-year-old male comes in concerned about hemorrhoids. He has had hemorrhoids for probably 22 years. Has mainly just to let them with [id number] products. The last couple of years they have become progressively worse. He probably has two flares of month. He finds that they are bleeding more than they used to. 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 He is uncomfortable. Bleeding. Wonders if there is other products besides [id number]-[id number] products that would be more beneficial. He is generally quite healthy. Denies constipation. Her stools are looser anything. Objective:BP 126/76 Pulse 92 Temp(Src) 97.9 ??F (36.6 ??C) (Tympanic) Resp 16 He appears well. Rectal exam shows some mild hemorrhoids externally. Small fissure. No active bleeding at this time. Anoscopic exam shows extensive internal hemorrhoids. Again, no active bleeding. Assessment: Symptomatic hemorrhoids. Plan: We talked about options including continuing to treat with creams and suppositories. He would like to consider a surgical procedure to hopefully get rid of them completely. He is given the numberand will make that appointment on his own. MIX OPERATOR documented in this encounter Plan of Treatment Scheduled Referrals Name Type Priority Associated Diagnoses Order S chedule SURGERY CONSULT-ADULTS Referral Routine Hemorrhoid Order ed: 04/29/2010 documented as of this encounter Visit Diagnoses Diagnosis Hemorrhoid - Primary Unspecified hemorrhoids without mention of complication documented in this encounter Care Teams Document Manager Relationship Specialty Start Date End Date Yaneth Dodd MD PCP - General 08/01/09 04/28/17 [address] [place] [address] documented as of this encounter
--- OUTSIDE RECORDS SUMMARY | 2022-01-16 08:06 | XMS_ITS | Encounter Summary ---
:1965 Author Organization [employer] Address [address] [place] [address] Care Team Providers Name Role Phone Yaneth Dodd MD Primary Care Provider Reason for Visit Reason Comments Refill Encounter Details Date Type Department Care Team Description 09/11/2010 Refill [facility] Yaneth Dodd MD Refill [address] [facility] [address] [place] [address] [place] [address] [phone] (Wo rk) Social History Tobacco Use Types Packs/Day Years Used Date Smoking Tobacco: Former Cigarettes 0.5 3 Cigars Comments: Occasional cigar Alcohol Use Standard Drinks/Week Comments Yes 0 (1 standard drink = 0.6 oz pure alcoho l) Rare Sex Assigned at Date Recorded Not on file documented as of this encounter Nursing Notes Rosey Braswell MD - 09/12/2010 10:14 AM CDT Approved Prescriptions: Disp Refills HYDROcodone-acetaminophen (AKA VICODIN,LORT15 Tab 0 Sig: TAKE ONE TABLET BY MOUTH EVERY 6 HOURS NEEDED. Authorizing Provider: ROSEY BRASWELL Gloria Thapa RN - 09/12/2010 9:01 AM CDT Pending Prescriptions: Disp Refills HYDROcodone-acetaminophen (AKA VICODIN,LOR15 Tab 0 Sig: TAKE ONE TABLET BY MOUTH EVERY 6 HOURS NEEDED. Gloria Thapa RN - 09/12/2010 9:01 AM CDT RN is unable to refill. Date of last visit: 08-26-10 Last time med was ordered: Date: 08-10-10 Dispensed: 15 Number of refills: 0 Careplan: [...] will need to come and talk to me Gloria Thapa RN 09/12/2010, 9:00 AM documented in this encounter Plan of Treatment Not on filedocumented as of this encounter Visit Diagnoses Not on filedocumented in this encounter Care Teams Residential Direct Support Professional Relationship Specialty Start Date End Date Yaneth Dodd MD PCP - General 08/01/09 04/28/17 [address] [place] [address] documented as of this encounter
--- OUTSIDE RECORDS SUMMARY | 2022-01-16 08:06 | XMS_ITS | Encounter Summary ---
:1965 Author Organization [facility] Address [address], [place] [address] Care Team Providers Name Role Phone Yaneth Dodd MD Primary Care Provider Encounter Details Date Type Department Care Team Description 06/11/2010 Orders Only [facility] or Hyperlipidemia LDL goal < 13 0; [address] [facility] Screening for deficiency ane tye; [place], [place] [address] Hypertension [phone] Social History Tobacco Use Types Packs/Day Years [...] Name Priority Date/Time Associated Diagnosis Comme nts BASIC METABOLIC Routine 06/11/2010 10:59 Hypertension Results for this PANEL,FASTING AM CDT procedure are in the results section. LIPID PANEL AND Routine 06/11/2010 10:59 Hyperlipidemia LDL go al Results for this DIRECT LDL(IF AM CDT < 130 procedure are in NEEDED) the results section. ALT (SGPT) Routine 06/11/2010 10:59 Hyperlipidemia LDL goal Results for this AM CDT < 130 procedure are i n the results section. documented in this encounter Results BASIC METABOLIC PANEL,FASTING (06/11/2010 10:59 AM CDT) Analysis Performed At Patho logist Time Signature BUN 12 7 - 20 [facility] mg/dl Sodium 143 135 - 145 [facility] mmol/L Potassium 4.4 3.5 - 5.3 [facility] mmol/L Chloride 103 95 - 106 [facility] mmol/L CO2 28 22 - 30 [facility] mmol/L Glucose 77 70 - 100 [facility] mg/dl Hours Fasting 13 hours [facility] Creatinine 1.13 0.66 - [facility] 1.25 mg/dl GFR, Estimated >60.0 >60 [facility] ml/min/1.7 3m2 GFR, Est., If >60.0 >60 [facility] Black ml/min/1.7 3m2 Calcium 9.7 8.4 - 10.2 [facility] mg/dl Anion Gap 11 7 - 16 [facility] (calc.) mmol/L Specimen Anatomical Collection Method Collection Time Receive d Time (Source) Location / / Volume Laterality 06/11/2010 10:59 06/11/2010 AM CDT 11:02 AM CDT Yaneth Dodd MD LAB_1 Performing Organization Address [facility] Phon e Number [facility] [employer] [phone] [phone] ALT (SGPT) (06/11/2010 10:59 AM CDT) P athologist Signature ALT (SGPT) 42 0 - 69 U/L [facility] Specimen Anatomical Collection Method Collection Time Receive d Time (Source) Location / / Volume Laterality 06/11/2010 10:59 06/11/2010 AM CDT 11:02 AM CDT Yaneth Dodd MD LAB_1 Performing Organization Address [facility] Phon e Number [facility] [employer] [phone] [phone] (ABNORMAL) LIPID PANEL AND DIRECT LDL(IF NEEDED) (06/11/2010 10:59 AM CDT) [facility] gist Method Time Signature Cholesterol 148 0 - 199 [facility] mg/dl Triglyceride 168 (H) 0 - 149 [facility] mg/dl HDL 37 (L) >40 mg/dl [facility] LDL, Calc. 77 0 - 129 [facility] mg/dl Hours Fasting 13 hours [facility] Specimen Anatomical Collection Method Collection Time Receive d Time (Source) Location / / Volume Laterality 06/11/2010 10:59 06/11/2010 AM CDT 11:02 AM CDT Yaneth Dodd MD LAB_1 Performing Organization Address City/State/ZIP Code Phon e Number [facility] [phone] [facility] [address] [phone] documented in this encounter Visit Diagnoses Diagnosis Hyperlipidemia LDL goal < 130 (HRC) Other and unspecified hyperlipidemia Screening for deficiency anemia Screening for other and unspecified defi ciency anemia Hypertension (HRC) Unspecified essential hypertension documented in this encounter Care Teams Surgical Resident Relationship Specialty Start Date End Date Yaneth Dodd MD PCP - General 08/01/09 04/28/17 [address] [place] [address] documented as of this encounter
--- OUTSIDE RECORDS SUMMARY | 2022-01-16 08:06 | XMS_ITS | Encounter Summary ---
:1965 Author Organization [facility] Address [address] [place] [address] Care Team Providers Name Role Phone Yaneth Dodd MD Primary Care Provider Reason for Visit Reason Onset Date Comments Refill 03/11/2010 ACYCLOVIR 400 MG Encounter Details Date Type Department Care Team Description 03/11/2010 Refill [facility] Yaneth Dodd R efill (ACYCLOVIR 400 Practice MD MG) [address] [facility] [address] [place], [place] [address] [place], [place] [phone] (Wo rk) Social History Tobacco Use Types [...] on filedocumented in this encounter Care Teams Crisis Nurse Relationship Specialty Start Date End Date Yaneth Dodd MD PCP - General 08/01/09 04/28/17 [address] [place], [place] [id number] documented as of this encounter
--- OUTSIDE RECORDS SUMMARY | 2022-01-16 08:06 | XMS_ITS | Encounter Summary ---
:1965 Author Organization [facility] Address [address] [place] [address] Care Team Providers Name Role Phone Yaneth Strong MD Primary Care Provider Reason for Visit Reason Onset Date Comments Refill 08/05/2010 Encounter Details Date Type Department Care Team Description 08/05/2010 Refill [facility] Yaneth Strong MD Refill [address] [facility] [address] [place], [place] [address] [place] [address] [phone] (Wo rk) Social History Tobacco Use Types Packs/Day Years Used Date Smoking Tobacco: Former Cigarettes 0.5 3 Cigars Comments: Occasional cigar Alcohol Use Standard Drinks/Week Comments Yes 0 (1 standard drink = 0.6 oz pure alcoho l) Rare Sex Assigned at Date Recorded Not on file documented as of this encounter Nursing Notes Marely Stevenson RN - 08/06/2010 12:13 PM CDTApproved Prescriptions: Disp Refills fenofibrate (AKA TRIGLIDE) 160 MG tablet 90 Tab 2Sig: Take 1 Tab by mouth daily.Authorizing Provider: YANETH STRONG User: MARELY STEVENSON Marely Stevenson, LAVERN - 08/06/2010 12:13 PM CDT refilled per standing order Marely Stevenson RN Tila Silvestre - 08/05/2010 8:39 AM CDT Last fill from a Pharmacy on [id number] for a quantity of 90. documented in this encounter Plan of Treatment Not on filedocumented as of this encounter Visit Diagnoses Diagnosis Hyperlipidemia LDL goal < 130 (HRC) - Pr imary Other and unspecified hyperlipidemia documented in this encounter Care Teams Systems Operator Relationship Specialty Start Date End Date Yaneth Strong MD PCP - General 08/01/09 04/28/17 [address] [place] [address] documented as of this encounter
--- OUTSIDE RECORDS SUMMARY | 2022-01-16 08:06 | XMS_ITS | Encounter Summary ---
:1965 Author Organization [facility] Address [address] [place] [address] Care Team Providers Name Role Phone Yaneth Dodd MD Primary Care Provider Reason for Visit Reason Comments Refill Encounter Details Date Type Department Care Team Description 11/12/2010 Refill [facility] Camilo Bullock MD Refill [address] [facility] [address] [place], [place] [address] [place] [address] [phone] (Wo rk) Social History Tobacco Use Types Packs/Day Years Used Date Smoking Tobacco: Former Cigarettes 0.5 3 Cigars Comments: Occasional cigar Alcohol Use Standard Drinks/Week Comments Yes 0 (1 standard drink = 0.6 oz pure alcoho l) Rare Sex Assigned at Date Recorded Not on file documented as of this encounter Nursing Notes Jessica Baez RN - 11/12/2010 11:29 AM CDT RN is unable to refill. Date of last visit: 08/26/10 Last time med was ordered: Date: 10/12/10 Dispensed: 15 Number of refills: 0 Careplan: [...] filedocumented in this encounter Care Teams Manager Underwriting Relationship Specialty Start Date End Date Yaneth Dodd MD PCP - General 08/01/09 04/28/17 [address] [place] [address] documented as of this encounter
--- OUTSIDE RECORDS SUMMARY | 2022-01-16 08:06 | XMS_ITS | Encounter Summary ---
:1965 Author Organization [facility] Address [address] [place] [address] Care Team Providers Name Role Phone Yaneth Dodd MD Primary Care Provider Reason for Visit Reason Comments Follow-up, [facility] Declined flu Encounter Details Date Type Department Care Team Description 03/12/2010 Office Visit [facility] Yaneth Dodd MD (Primary Dx) [address] [place] [address] [phone] Social History Tobacco Use Types Packs/Day Years Used Date Smoking Tobacco: Former Cigarettes 0.5 3 Cigars Comments: Occasional cigar Alcohol Use Standard Drinks/Week Comments Yes 0 (1 standard drink = 0.6 oz pure alcoho l) Rare Sex Assigned at Date Recorded Not on file documented as of this encounter Last Filed Vital Signs Vital Sign Reading Time Taken Comments Blood Pressure 120/80 03/12/2010 9:50 AM SENIOR INSPECTOR Pulse 74 03/12/2010 9:50 AM SENIOR INSPECTOR Temperature - - Respiratory Rate - - Oxygen Saturation - - Inhaled Oxygen Concentration - - Weight 98.9 kg (218 lb) 03/12/2010 9:50 AM SENIOR INSPECTOR Height - - Body Mass Index 28.76 05/13/2009 9:52 AM SENIOR INSPECTOR documented in this encounter Progress Notes Yaneth Dodd MD - 03/12/2010 11:59 AM CST Subjective: 44-year-old male with history of hyperlipidemia comes in for followup of blood work. At his last visit, his his Pravachol was discontinued. He was started on fenofibrate, 160 milligrams daily. He also started fish oil at home and has been on that for the last couple of months. He had bloodwork done prior to this visit unfortunately, his numbers do not look good. Orders Only on 03/10/2010 Component Date Value Range Status ??? CHOLESTEROL (mg/dl) 03/10/2010 275* 0-199 Final ??? TRIGLYCERIDE (mg/dl) 03/10/2010 173* 0-149 Final ? ? HDL (mg/dl) 03/10/2010 14* >40- Final ??? LDL, CALC. (mg/dl) 03/10/2010 226* 0-129 Final ??? HOURS FASTING (hours) 03/10/2010 12 - Final ??? WBC (k/ul) 03/10/2010 6.9 4.0-11.0 Final ??? RBC (M/ul) 03/10/2010 5.06 4.5-5.9 Final ??? HGB (g/dl) 03/10/2010 14.8 13.5-17.5 Final ??? HCT (%) 03/10/2010 46.2 41.0-53.0 Final ??? MCV (fl) 03/10/2010 91.4 80-100 Final ??? MCH (pg) 03/10/2010 29.2 26-34 Final ??? MCHC (g/dl) 03/10/2010 31.9* 32-36 Final ??? RDW (%) 03/10/2010 14.1 11.5-14.5 Final ??? PLTS (k/ul) 03/10/2010 286 150-450 Final ??? CREATININE (mg/dl) 03/10/2010 1.03 0.66-1.25 Final ? ? GFR, ESTIMATED (ml/min/1.73m2) 03/10/2010 >60.0 >60- Final ? ? GFR EST IF (ml/min/1.73m2) 03/10/2010 >60.0 >60- Final ??? POTASSIUM (mmol/L) 03/10/2010 4.4 3.5-5.1 Final ??? ALT (SGPT) (U/L) 03/10/2010 24 0-69 Final His triglycerides have improved. However, his LDL, cholesterol have greatly increased. His HDL has gone down to 14. Admits that he does not watch his diet very well. He has not been very active. He really is not aware of any family history of hyperlipidemia. Objective:BP 120/80 Pulse 74 Wt 218 lb (98.884 kg) He appears well. No further exam was done today. Assessment: Hyperlipidemia, uncontrolled. Plan: We will continue with the fenofibrate. I am going to add Lipitor 20 milligrams daily. He is going to discontinue the fish oil for now and see if that makes any difference although I doubt that itwell. We will recheck in three months. He will call sooner if he is having difficulty. Also, we talked about maybe considering niacin. Finally, he will also consider taking a daily baby aspirin. OR INSPECTOR documented in this encounter Plan of Treatment Not on filedocumented as of this encounter Visit Diagnoses Diagnosis Genital herpes (HRC) - Primary Genital herpes, unspecified documented in this encounter Care Teams [place] Tax Assessor Relationship Specialty Start Date End Date Yaneth Dodd MD PCP - General 08/01/09 04/28/17 [address] [place] [address] documented as of this encounter
--- OUTSIDE RECORDS SUMMARY | 2022-01-16 08:06 | XMS_ITS | Encounter Summary ---
:1965 Author Organization [facility] Address [address], [place] [address] Care Team Providers Name Role Phone Yaneth Dodd MD Primary Care Provider Reason for Visit Reason Onset Date Comments Medication Request 09/01/2010 Encounter Details Date Type Department Care Team Description 09/01/2010 Telephone [facility] Yaneth Dodd M edication Request Practice [address] [facility] [address] [place], [place] [address] [place], [place] [phone] (Wo rk) Social History Tobacco Use Types Packs/Day Years Used Date Smoking Tobacco: Former Cigarettes 0.5 3 Cigars Comments: Occasional cigar Alcohol Use Standard Drinks/Week Comments Yes 0 (1 standard drink = 0.6 oz pure alcoho l) Rare Sex Assigned at Date Recorded Not on file documented as of this encounter Nursing Notes Yaneth Dodd MD - 09/01/2010 9:19 AM CDT Rx sent. 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 Requesting To get new RX for 20 mgs. [facility]s fill at [facility] documented in this encounter Plan of Treatment Not on filedocumented as of this encounter Visit Diagnoses Not on filedocumented in this encounter Care Teams Service Counter Cashier Relationship Specialty Start Date End Date Yaneth Dodd MD PCP - General 08/01/09 04/28/17 [address] [place] [address] documented as of this encounter
--- OUTSIDE RECORDS SUMMARY | 2022-01-16 08:06 | XMS_ITS | Encounter Summary ---
:1965 Author Organization [facility] Address [address] [place] [address] Care Team Providers Name Role Phone Yaneth Dodd MD Primary Care Provider Reason for Visit Reason Comments Refill Encounter Details Date Type Department Care Team Description 03/13/[address] [facility] Yaneth Dodd MD Refill [address] [facility] [address] [place], [place] [address] [place] [address] [phone] (Wo rk) Social History Tobacco Use Types Packs/Day Years Used Date Smoking Tobacco: Former Cigarettes 0.5 3 Cigars Comments: Occasional cigar Alcohol Use Standard Drinks/Week Comments Yes 0 (1 standard drink = 0.6 oz pure alcoho l) Rare Sex Assigned at Date Recorded Not on file documented as of this encounter Nursing Notes Jessica Baez RN - 03/13/2011 11:34 AM CST Acyclovir refilled per standing order. Jessica Baez RN Rosalio Mendez - 03/13/2011 11:08 AM CST RN is unable to refill. Date of last visit: 08/26/10 Last time med was ordered: HYDROcodone-acetaminophen (AKA VICODIN,LORTAB) 5-500 MG tablet Date: 02/10/11 Dispensed: 15 Number of refills: 0 Careplan: [...] need to come and talk to me. GE CONTROL ANALYST documented in this encounter Plan of Treatment Not on filedocumented as of this encounter Visit Diagnoses Not on filedocumented in this encounter Care Teams Sample Tailor Relationship Specialty Start Date End Date Yaneth Dodd MD PCP - General 08/01/09 04/28/17 [address] [place] [address] documented as of this encounter
--- OUTSIDE RECORDS SUMMARY | 2022-01-16 08:06 | XMS_ITS | Encounter Summary ---
:1965 Author Organization [facility] Address [address] [place] [address] Care Team Providers Name Role Phone Yaneth Dodd MD Primary Care Provider Reason for Visit Reason Comments Refill Encounter Details Date Type Department Care Team Description 08/10/2010 Refill [facility] Yaneth Dodd MD Refill [address] [facility] [address] [place], [place] [address] [place] [address] [phone] (Wo rk) Social History Tobacco Use Types Packs/Day Years Used Date Smoking Tobacco: Former Cigarettes 0.5 3 Cigars Comments: Occasional cigar Alcohol Use Standard Drinks/Week Comments Yes 0 (1 standard drink = 0.6 oz pure alcoho l) Rare Sex Assigned at Date Recorded Not on file documented as of this encounter Nursing Notes Yaneth Dodd MD - 08/11/2010 12:07 PM CDTApproved Prescriptions: Disp Refills HYDROcodone-acetaminophen (AKA VICODIN,LORT15 Tab 0Sig: TAKE ONE TABLET BY MOUTH EVERY 6 HOURS NEEDEDAuthorizing Provider: YANETH DODD Shannon Ochoa - 08/11/2010 12:01 PM CDT Pending Prescriptions: Disp Refills HYDROcodone-acetaminophen (AKA VICODIN,LOR15 Tab 0 Sig: TAKE ONE TABLET BY MOUTH EVERY 6 HOURS NEEDED Shannon Ochoa - 08/11/2010 12:01 PM CDT RN is unable to refill. Date of last visit: 06/18/10 Last time med was ordered: Date: 07/11/10 Dispensed: 15 Number of refills: 0 Careplan: [...] on filedocumented in this encounter Care Teams Pen And Pencil Repairer Relationship Specialty Start Date End Date Yaneth Dodd MD PCP - General 08/01/09 04/28/17 [address] [place] [address] documented as of this encounter
--- OUTSIDE RECORDS SUMMARY | 2022-01-16 08:06 | XMS_ITS | Encounter Summary ---
:1965 Author Organization [employer] [facility] [facility] Address [address] [place] [address] Care Team Providers Name Role Phone Yaneth Dodd MD Primary Care Provider Reason for Visit Reason Comments Refill Encounter Details Date Type Department Care Team Description 12/11/2010 Refill [facility] Yaneth Dodd MD Refill [address] [facility] [address] [place], [place] [address] [place] [address] [phone] (Wo rk) Social History Tobacco Use Types Packs/Day Years Used Date Smoking Tobacco: Former Cigarettes 0.5 3 Cigars Comments: Occasional cigar Alcohol Use Standard Drinks/Week Comments Yes 0 (1 standard drink = 0.6 oz pure alcoho l) Rare Sex Assigned at Date Recorded Not on file documented as of this encounter Nursing Notes Claudia Guzman RN - 12/12/2010 9:47 AM CDT RN is unable to refill. VICODIN 5-500 MG tablet 15 Tab 0 11/12/2010 Date of last visit: 08/26/10 Last time med was ordered: Date: 11/12/10 Dispensed: 15 Number of refills: 0 Narcotic Careplan: YES, copy of careplan: Yaneth [...] need to come and talk to me. Acyclovir refilled per standing order. Claudia Guzman RN 12/12/2010, 9:48 AM documented in this encounter Plan of Treatment Not on filedocumented as of this encounter Visit Diagnoses Not on filedocumented in this encounter Care Teams Stay Cutter Relationship Specialty Start Date End Date Yaneth Dodd MD PCP - General 08/01/09 04/28/17 [address] [place] [address] documented as of this encounter
--- OUTSIDE RECORDS SUMMARY | 2022-01-16 08:06 | XMS_ITS | Encounter Summary ---
:[address] [address] Address [address] [place] [address] Care Team Providers Name Role Phone Yaneth Strong MD Primary Care Provider Reason for Visit Reason Onset Date Comments Refill 03/10/2010 OMEPRAZOLE 20MG Encounter Details Date Type Department Care Team Description 03/10/2010 Refill [facility] Yaneth Strong R efmorelia (OMEPRAZOLE 20MG) Practice [address] [address] [place], [place] [phone] (Wo rk) Social History Tobacco Use Types Packs/Day Years Used Date Smoking Tobacco: Former Cigarettes 0.5 3 Cigars Comments: Occasional cigar Alcohol Use Standard Drinks/Week Comments Yes 0 (1 standard drink = 0.6 oz pure alcoho l) Rare Sex Assigned at Date Recorded Not on file documented as of this encounter Nursing Notes Yaneth Strong MD - 03/10/2010 4:16 PM CSTApproved Prescriptions: Disp Refills omeprazole (AKA PRILOSEC) 20 MG capsule 90 Cap 1Sig: Take 1 Cap by mouth daily. Take 30 minutes before meal.Authorizing Provider: YANETH STRONG lisinopril (AKA ZESTRIL) 10 MG tablet 90 Tab 1Sig: Take 1 Tab by mouth daily. Authorizing Provider: YANETH STRONG GRINDER Ninfa Matos RN, BSN - 03/10/2010 3:49 PM BEEF GRINDER Pending Prescriptions: Disp Refills omeprazole (AKA PRILOSEC) 20 MG capsule prn Sig: Take by mouth daily. Take 30 minutes before meal. lisinopril (AKA ZESTRIL) 10 MG tablet prn Sig: Take 1 Tab by mouth daily. GRINDER Ninfa Matos, RN, BSN - 03/10/2010 3:49 PM CST Labs still in process. Has f/u appt with Dr Strong on Wed. Will forward for refill then GRINDER Maryan Wood - 03/10/2010 12:01 PM CST Last fill from a [facility] on [id number] for a quantity of 90. (OMEPRAZOLE) Last fill from a [facility] on [id number] for a quantity of 30. (LISINOPRIL) GRINDER documented in this encounter Plan of Treatment Not on filedocumented as of this encounter Visit Diagnoses Diagnosis GERD (gastroesophageal reflux disease) Esophageal reflux Hypertension (HRC) Unspecified essential hypertension documented in this encounter Care Teams Truck Trailer Final Inspector Relationship Specialty Start Date End Date Yaneth Strong MD PCP - General 08/01/09 04/28/17 [address] [place] [address] documented as of this encounter
--- OUTSIDE RECORDS SUMMARY | 2022-01-16 08:06 | XMS_ITS | Encounter Summary ---
:1965 Author Organization [employer] Address [address] [place] [address] Care Team Providers Name Role Phone Yaneth Strong MD Primary Care Provider Reason for Visit Reason Comments Refill Encounter Details Date Type Department Care Team Description 10/01/[address] [facility] Yaneth Strong MD Refill [address] [facility] [address] [place], [place] [address] [place] [address] [phone] (Wo rk) Social History Tobacco Use Types Packs/Day Years Used Date Smoking Tobacco: Former Cigarettes 0.5 3 Cigars Comments: Occasional cigar Alcohol Use Standard Drinks/Week Comments Yes 0 (1 standard drink = 0.6 oz pure alcoho l) Rare Sex Assigned at Date Recorded Not on file documented as of this encounter Nursing Notes Yaneth Strong MD - 10/01/2010 3:32 PM CDTApproved Prescriptions: Disp Refills diclofenac (AKA VOLTAREN) 50 MG enteric [id number]: TAKE 1 TABLET BY MOUTH TWO TIMES A DAY.Authorizing Provider: YANETH STRONG Ninfa Matos, RN, BSN - 10/01/2010 3:29 PM CDT Pending Prescriptions: Disp Refills diclofenac (AKA VOLTAREN) 50 MG enteric co180 Tab0 Sig: TAKE 1 TABLET BY MOUTH TWO TIMES A DAY. Gabby Hernandes RN - 10/01/2010 3:08 PM CDT Pending Prescriptions: Disp Refills diclofenac (AKA VOLTAREN) 50 MG enteric co180 Tab0 Sig: TAKE 1 TABLET BY MOUTH TWO TIMES A DAY. Gabby Hernandes RN - 10/01/2010 3:08 PM CDT RN is unable to fill, because it does not meet medication refill standing order criteria. No Standing Orders Exist Last office visit: 08-26-10 Last time med was ordered: Date: 07-03-10 Dispensed: 180 tab Number of refills: 0 Gabby Hernandes RN 10/01/2010, 3:07 PM documented in this encounter Plan of Treatment Not on filedocumented as of this encounter Visit Diagnoses Not on filedocumented in this encounter Care Teams Egg Pasteurizer Relationship Specialty Start Date End Date Yaneth Strong MD PCP - General 08/01/09 04/28/17 [address] [place] [address] documented as of this encounter
--- OUTSIDE RECORDS SUMMARY | 2022-01-16 08:06 | XMS_ITS | Encounter Summary ---
:1965 Author Organization [employer] Address [address] [place] [address] Care Team Providers Name Role Phone Yaneth Dodd MD Primary Care Provider Reason for Visit Reason Onset Date Comments Refill 03/14/2010 vicodin Encounter Details Date Type Department Care Team Description 03/14/2010 Refill [facility] Chris Dodd MD Refill (vicodin) [address] [address] [place] [phone] Social History Tobacco Use Types Packs/Day Years Used Date Smoking Tobacco: Former Cigarettes 0.5 3 Cigars Comments: Occasional cigar Alcohol Use Standard Drinks/Week Comments Yes 0 (1 standard drink = 0.6 oz pure alcoho l) Rare Sex Assigned at Date Recorded Not on file documented as of this encounter Nursing Notes Rosey Braswell MD - 03/14/2010 10:53 AM FINANCE ATTORNEY Approved Prescriptions: Disp Refills HYDROcodone-acetaminophen (AKA VICODIN,LORT15 Tab 0 Sig: Take 1 Tab by mouth every 6 hours as needed for Pain for 10 days. Authorizing Provider: ROSEY BRASWELL NCE ATTORNEY Ninfa Matos RN, BSN - 03/14/2010 10:09 AM FINANCE ATTORNEY Pending Prescriptions: Disp Refills HYDROcodone-acetaminophen (AKA VICODIN,LORT15 Tab 0 Sig: Take 1 Tab by mouth every 6 hours as needed for Pain for 10 days. NCE ATTORNEY Ninfa Matos, RN, BSN - 03/14/2010 10:09 AM CST RN is unable to refill. Date of last visit: 03-12-09 Narcotic Careplan: YES, copy of careplan: Yaneth [...] need to come and talk to me. NCE ATTORNEY Huong Huerta - 03/14/2010 10:07 AM CST Last fill from a Pharmacy on [id number] for a quantity of 15. NCE ATTORNEY documented in this encounter Plan of Treatment Not on filedocumented as of this encounter Visit Diagnoses Not on filedocumented in this encounter Care Teams Grant Officer Relationship Specialty Start Date End Date Yaneth Dodd MD PCP - General 08/01/09 04/28/17 [address] [place] [address] documented as of this encounter
--- OUTSIDE RECORDS SUMMARY | 2022-01-16 08:06 | XMS_ITS | Encounter Summary ---
:1965 Author Organization [email or web address] Address [address] [place] [address] Care Team Providers Name Role Phone Yaneth Dodd MD Primary Care Provider Reason for Visit Reason Comments Refill Encounter Details Date Type Department Care Team Description 10/12/2010 Refill [facility] Tamar Braswell MD Refill Medicine [address] [place] [address] [place] [address] [place] [address] [phone] Social History Tobacco Use Types Packs/Day Years Used Date Smoking Tobacco: Former Cigarettes 0.5 3 Cigars Comments: Occasional cigar Alcohol Use Standard Drinks/Week Comments Yes 0 (1 standard drink = 0.6 oz pure alcoho l) Rare Sex Assigned at Date Recorded Not on file documented as of this encounter Nursing Notes Camilo Bullock MD - 10/13/2010 10:29 AM CDTApproved Prescriptions: Disp Refills VICODIN 5-500 MG tablet 15 Tab 0Sig: TAKE 1 TABLET EVERY 6 HOURS NEEDED Authorizing Provider: CAMILO BULLOCK Georgie Moya RN - 10/13/2010 10:09 AM CDT Pending Prescriptions: Disp Refills VICODIN 5-500 MG tablet [Pharmacy Med Name15 Tab 0 Sig: TAKE 1 TABLET EVERY 6 HOURS NEEDED Georgie Moya RN - 10/13/2010 10:09 AM CDT RN is unable to fill, because it does not meet medication refill standing order criteria. No Standing Orders Exist HYDROcodone-acetaminophen (AKA VICODIN,LORTAB) 5-500 MG tablet 15 Tab 0 09/11/2010 Last office visit: 08/26/10 Last time med was ordered: Date: 09/11/10 Dispensed: 15 Number of refills: 0 Careplan: Yaneth Dodd 02/05/10 11:38 AM Signed Nicanor [...] on filedocumented in this encounter Care Teams Flatwork Catcher Relationship Specialty Start Date End Date Yaneth Dodd MD PCP - General 08/01/09 04/28/17 [address] [place] [address] documented as of this encounter
--- OUTSIDE RECORDS SUMMARY | 2022-01-16 08:07 | XMS_ITS | Encounter Summary ---
:1965 Author Organization [facility] Address [address] [place] [address] Care Team Providers Name Role Phone Yaneth Dodd MD Primary Care Provider Reason for Visit Reason Onset Date Comments LAB TESTS, NOS 11/15/2009 Encounter Details Date Type Department Care Team Description 11/15/2009 Telephone [place] Chris Dodd MD LAB TESTS, NOS [facility] [address] [facility] [address] [place] [address] [place] [address] [phone] Social History Tobacco Use Types Packs/Day Years Used Date Smoking Tobacco: Former Cigarettes 0.5 3 Cigars Comments: Occasional cigar Alcohol Use Standard Drinks/Week Comments Yes 0 (1 standard drink = 0.6 oz pure alcoho l) Rare Sex Assigned at Date Recorded Not on file documented as of this encounter Nursing Notes Ninfa Matos, RN, BSN - 11/15/2009 9:09 AM CDT Orders entered Boris Champagne - 11/15/2009 9:07 AM CDT Patient on Lab Only Visit Schedule, no lab orders found in patient's chart. Please review and enter Future Lab Orders or notify the patient that lab work is not needed. Lab Only Visit scheduled for:today After placing Future Orders, please route this Telephone Encounter to the following pool: AV [facility] documented in this encounter Plan of Treatment Not on filedocumented as of this encounter Results ALT (SGPT) (11/15/2009 10:19 AM CDT) P athologist Signature ALT (SGPT) 64 0 - 69 U/L [facility] Specimen Anatomical Collection Method Collection Time Receive d Time (Source) Location / / Volume Laterality 11/15/2009 10:19 11/15/2009 AM CDT 10:28 AM CDT Yaneth Dodd MD LAB_1 Performing Organization Address City/[facility] Phon e Number [employer] [phone] [facility] [address] [place] [id number] (ABNORMAL) LIPID PANEL AND DIRECT LDL(IF NEEDED) (11/15/2009 10:19 AM CDT) Component Value Ref Test Analysis Performed At [facility] gist Range Method Time Signature Cholesterol 212 (H) 0 - 199 [facility] mg/dl Triglyceride 332 (H) 0 - 149 [facility] mg/dl HDL 34 (L) >40 [facility] mg/dl LDL, Calc. 112 0 - 129 [facility] mg/dl Hours Fasting Information hours [facility] Not Given Specimen Anatomical Collection Method Collection Time Receive d Time (Source) Location / / Volume Laterality 11/15/2009 10:19 11/15/2009 AM CDT 10:28 AM CDT Yaneth Dodd MD LAB_1 Performing Organization Address City/[facility] Phon e Number [employer] [phone] [facility] [address] [place] [phone] documented in this encounter Visit Diagnoses Diagnosis Hyperlipidemia LDL goal < 130 (HRC) - Pr imary Other and unspecified hyperlipidemia documented in this encounter Care Teams Electric Welder Relationship Specialty Start Date End Date Yaneth Dodd MD PCP - General 08/01/09 04/28/17 [address] [place], [place] [id number] documented as of this encounter
--- OUTSIDE RECORDS SUMMARY | 2022-01-16 08:07 | XMS_ITS | Encounter Summary ---
:1965 Author Organization [employer] Address [address] [place] [address] Care Team Providers Name Role Phone Yaneth Dodd MD Primary Care Provider Reason for Visit Reason Comments BACK PAIN Encounter Details Date Type Department Care Team Description 02/05/2010 Office Visit [facility] Yaneth Dodd low back pain Practice MD Sebastien (Primary Dx) [address] [address] [phone] Social History Tobacco Use Types Packs/Day Years Used Date Smoking Tobacco: Former Cigarettes 0.5 3 Cigars Comments: Occasional cigar Alcohol Use Standard Drinks/Week Comments Yes 0 (1 standard drink = 0.6 oz pure alcoho l) Rare Sex Assigned at Date Recorded Not on file documented as of this encounter Last Filed Vital Signs Vital Sign Reading Time Taken Comments Blood Pressure 112/68 02/05/2010 10:52 AM PLANT CUSTODIAN Pulse 86 02/05/2010 10:52 AM PLANT CUSTODIAN Temperature 36.7 ??C (98.1 ??F) 02/05/2010 10:52 AM PLANT CUSTODIAN Respiratory Rate - - Oxygen Saturation - - Inhaled Oxygen Concentration - - Weight 94.8 kg (209 lb) 02/05/2010 10:52 AM PLANT CUSTODIAN Height - - Body Mass Index 27.57 05/13/2009 9:52 AM PLANT CUSTODIAN documented in this encounter Progress Notes Yaneth Dodd - 02/05/2010 11:37 AM CST Subjective: 44 your old male comes in to discuss his chronic back pain. He has a long history of chronic back pain. Thinks it may have started back in 2005. Since that time he has had four back surgeries including three laminectomies and one fusion. He has been involved in physical therapy on multipleoccasions and does find it helpful. Unfortunately, he will find that intermittently his back will flare. 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 This may last 3-4 days and he isafraid that it could affect his job. He is currently on Vytorin daily. He is trying to use less of that in use something like Aleve. Tylenol does not seem to work well for him. We talked about the importance of trying to avoid some of those medications as they can cause difficulties with renal function. What he is asking for today is the possibility of having some Vicodin on hand for when his symptoms flare. He understands that it is addictive. Objective:BP 112/68 Pulse 86 Temp 98.1 ??F (36.7 ??C) Wt 209 lb (94.802 kg) He is alert and oriented. He is nonsymptomatic at this time. Assessment: Chronic back pain. Plan: I think his requests a reasonable period we talked about what would be appropriate for him. Heagreed to 15 tablets of Vicodin should be more than enough per month. He will definitely try not to use them unless absolutely necessary. I did give him a prescription today. T CUSTODIAN documented in this encounter Plan of Treatment Not on filedocumented as of this encounter Visit Diagnoses Diagnosis Chronic low back pain - Primary Lumbago documented in this encounter Care Teams Fan Blade Aligner Relationship Specialty Start Date End Date Yaneth Dodd MD PCP - General 08/01/09 04/28/17 [address] [place] [address] documented as of this encounter
--- OUTSIDE RECORDS SUMMARY | 2022-01-16 08:07 | XMS_ITS | Encounter Summary ---
:1965 Author Organization [facility] Address [address] [place] [address] Care Team Providers Name Role Phone Yaneth Dodd MD Primary Care Provider Encounter Details Date Type Department Care Team Description 11/15/2009 Orders Only [place] [facility] Hyperlipidemia LDL Goal < [address] [facility] [address] [place], [place] [address] Social History Tobacco Use Types Packs/Day Years [...] Diagnosis Comme nts LIPID PANEL AND Routine 11/15/2009 10:19 Hyperlipidemia LDL Go al Results for this DIRECT LDL(IF AM CDT < 130 procedure are in NEEDED) the results section. ALT (SGPT) Routine 11/15/2009 10:19 Hyperlipidemia LDL Goal Results for this AM CDT < 130 procedure are i n the results section. documented in this encounter Results ALT (SGPT) (11/15/2009 10:19 AM CDT) athologist Signature ALT (SGPT) 64 0 - 69 U/L [employer] Specimen Anatomical Collection Method Collection Time Receive d Time (Source) Location / / Volume Laterality 11/15/2009 10:19 11/15/2009 AM CDT 10:28 AM CDT Yaneth Dodd MD LAB_1 Performing Organization Address City/[facility] Phon e Number [facility] [phone] [address] (ABNORMAL) LIPID PANEL AND DIRECT LDL(IF NEEDED) (11/15/2009 10:19 AM CDT) Component Value Ref Test Analysis Performed At [facility] Range Method Time Signature Cholesterol 212 (H) [...] Yaneth Dodd MD LAB_1 Performing Organization Address [facility] [address] [facility] Phon e Number [facility] [employer] [phone] [address] documented in this encounter Visit Diagnoses Diagnosis Hyperlipidemia LDL goal < 130 (HRC) Other and unspecified hyperlipidemia documented in this encounter Care Teams Cement Paver Relationship Specialty Start Date End Date Yaneth Dodd MD PCP - General 08/01/09 04/28/17 [address] [place] [address] documented as of this encounter
--- OUTSIDE RECORDS SUMMARY | 2022-01-16 08:07 | XMS_ITS | Encounter Summary ---
:1965 Author Organization Not [employer] Address [address] [place] [address] Care Team Providers Name Role Phone Unavailable Primary Care Provider Unavailable Reason for Visit Reason Comments BP CHECK, Encounter Details Date Type Department Care Team Description 05/13/2009 Office Visit [facility] Yaneth Patel rlipidemia LDL Goal Criselda Crowe MD < 130 (Primary Dx) [address] [facility] [address] [place] [address] [phone] Social History Tobacco Use Types Packs/Day Years Used Date Smoking Tobacco: Former Cigarettes 0.5 3 Cigars Comments: Occasional cigar Alcohol Use Standard Drinks/Week Comments Yes 0 (1 standard drink = 0.6 oz pure alcoho l) Rare Sex Assigned at Date Recorded Not on file documented as of this encounter Last Filed Vital Signs Vital Sign Reading Time Taken Comments Blood Pressure 124/73 05/13/2009 9:52 AM EXECUTIVE SALES MANAGER Pulse 63 05/13/2009 9:52 AM EXECUTIVE SALES MANAGER Temperature 36.2 ??C (97.2 ??F) 05/13/2009 9:52 AM EXECUTIVE SALES MANAGER Respiratory Rate - - Oxygen Saturation - - Inhaled Oxygen Concentration - - Weight 95.3 kg (210 lb) 05/13/2009 9:52 AM EXECUTIVE SALES MANAGER Height 185.4 cm (6' 1) 05/13/2009 9:52 AM EXECUTIVE SALES MANAGER Body Mass Index 27.71 05/13/2009 9:52 AM EXECUTIVE SALES MANAGER documented in this encounter Patient Instructions Patient InstructionsKristin Palumbo - 05/13/2009 8:33 AM CST Thank you for visiting the [facility]. Should you have any questions or concerns please call my office during business hours at [phone] and leave a message along with a phone number where you can be reached during the day and a member of my care team will contact you. If you need assistance after business hours you can speak with a registered nurse by calling the Careline at [phone]. In addition we provide services after hours at the [facility] at our walk-in Urgent Care. Urgent Care Clinic hours are: Mon-Fri 5:00pm-9:00pm Wednesday 9:00am-5:00pm Wednesday Noon-5:00 pm To schedule an appointment please call [phone]. UTIVE SALES MANAGER documented in this encounter Progress Notes Yaneth Dodd - 05/13/2009 12:02 PM CST Subjective: 43-year-old male comes in for followup of recent blood work. Orders Only on 05/09/2009 Component Date Value Range Status ??? CREATININE (mg/dl) 05/09/2009 1.1 0.7-1.2 Final ??? POTASSIUM (mmol/L) 05/09/2009 4.2 3.5-5.3 Final ??? SODIUM (mmol/L) 05/09/2009 141 135-145 Final ??? CHOLESTEROL (mg/dl) 05/09/2009 236* 0-199 Final ? ? HDL (mg/dl) 05/09/2009 31* >40- Final ??? LDL, CALC. (mg/dl) 05/09/2009 141* 0-129 Final ??? HOURS FASTING (hours) 05/09/2009 12 - Final ??? ALT (SGPT) (U/L) 05/09/2009 45 0-55 Final ? ? GFR, ESTIMATED (ml/min/1.73m2) 05/09/2009 73.1 >60- Final ? ? GFR EST IF (ml/min/1.73m2) 05/09/2009 >80.0 >60- Final ??? TRIGLYCERIDE (mg/dl) 05/09/2009 321* 0-149 Final His total cholesterol continues to be elevated as does his LDL. HDL is too low. Triglycerides are high. He is currently on Pravachol, 20 milligrams daily. We went over the above results. He admits that he has been laid off from his work so has been more sedentary over the past few months. Is hoping to get back to work which would make you more active. Wetalked about the importance of diet and trying to exercise more. We went over his family history. He denies any history of heart disease in his parents or siblings. Assessment: Hyperlipidemia. Plan: I am going to increase his Pravachol to 40 milligrams daily. We will recheck in three months. He will call sooner if he is having difficulty. Again, encouraged exercise and diet control. UTIVE SALES MANAGER documented in this encounter Plan of Treatment Not on filedocumented as of this encounter Results ALT (SGPT) (08/07/2009 8:38 AM CDT) P athologist Signature ALT (SGPT) 53 0 - 69 U/L [facility] Specimen Anatomical Collection Method Collection Time Receive d Time (Source) Location / / Volume Laterality 08/07/2009 8:38 AM 0 8:41 CDT AM CDT Yaneth Dodd MD LAB_1 Performing Organization Address City/State/ZIP Code Phon e Number [facility] [phone] [facility] [address] [address] (ABNORMAL) LIPID PANEL AND DIRECT LDL(IF NEEDED) (08/07/2009 8:38 AM CDT) [facility] gist Method Time Signature Cholesterol 214 (H) 0 - 199 [facility] mg/dl Triglyceride 230 (H) 0 - 149 [facility] mg/dl HDL 33 (L) >40 mg/dl [facility] LDL, Calc. 135 (H) 0 - 129 [facility] mg/dl Hours Fasting 11.5 hours [facility] Specimen Anatomical Collection Method Collection Time Receive d Time (Source) Location / / Volume Laterality 08/07/2009 8:38 AM 0 8:41 CDT AM CDT Yaneth Dodd MD LAB_1 Performing Organization Address City/State/ZIP Code Phon e Number [facility] [phone] [address] documented in this encounter Visit Diagnoses Diagnosis Hyperlipidemia LDL goal < 130 (HRC) - Pr imary Other and unspecified hyperlipidemia documented in this encounter
--- OUTSIDE RECORDS SUMMARY | 2022-01-16 08:07 | XMS_ITS | Encounter Summary ---
:1965 Author Organization [employer] Address [address] [place] [address] Care Team Providers Name Role Phone Yaneth Dodd MD Primary Care Provider Reason for Visit Reason Comments EYE EXAM,YEARLY ADELSO 15 years ago. Pt states he had started taking Zoloft for CROWE's , pt states he whined himself off the zoloft and the CROWE's are getting worse again. Pt states he crowe s had CT scan 15 years ago and could not find out way he has constant pressure around his years. Right eye is worse. Pt states he needs to hold things closer to read. 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 CROWE's always start in the front of his eyes and move to the ana k of his heads. Pt states he has been on pain meds (Voltaren) for 5-6 year since back surgery. Pt states he has a white spot on the righ t eye for 3 years. Pt states he has had welding tenorio. Encounter Details Date Type Department Care Team Description 02/06/2010 Office Visit [facility] Consoer, Dane Zaragoza, Examination of eyes and visi on (Primary Dx); [address] OD Myopia; [place], [place] [address] Unspecified astigmatism; [phone] Presbyopia Social History Tobacco Use Types Packs/Day Years Used Date Smoking Tobacco: Former Cigarettes 0.5 3 Cigars Comments: Occasional cigar Alcohol Use Standard Drinks/Week Comments Yes 0 (1 standard drink = 0.6 oz pure alcoho l) Rare Sex Assigned at Date Recorded Not on file documented as of this encounter Patient Instructions Patient InstructionsConsoer, Dane Zaragoza, OD - 02/06/2010 11:21 AM CST [facility]. Many tests were done to check your eye health today including: pupil reaction, eye muscle function, peripheral (side) vision, visual acuity, and eye pressure. The health of your eyes was also checked, both on the outside as well as the inside of each eye. Your eyeglass prescription or contact prescription may have also been updated. Early detection of eye health problems is important to keep your eyes healthy over your lifetime. Atyour eye exam we are looking for signs of glaucoma, diabetes, high blood pressure, cataract, dry eye, eye allergies, and many other conditions. Frequently Asked Questions: Why do you use eye drops? We use a clear drop to dilate, or open the pupil wider. This allows us to have a clearer, wider view inside the eye to look for signs of eye disease. We use a different eye drop to check the pressure inside the eye; this is usually the yellow eye drop. How long will my eyes be blurry today? Your vision will be blurry up close for about an hour, and your eyes will stay dilated for about 4 hours. You will need to wear sunglasses when you are outside today. If you do not have any sunglasses with you, there are some disposable ones available. Please usecaution in getting around for the few hours that your eyes are dilated. How can I contact the clinic in the future? Appointment Center: [phone] Eye Dept: [phone] Online Services: [email or web address] For after hours care, call the CareLine at [phone] or . We look forward to taking care of your eye care needs in the years to come. Refractive Errors Refractive errors occur when light does not focus properly on the retina because of the shape of theeye. The resulting image is blurred. Common refractive errors are myopia (nearsightedness), hyperopia (farsightedness), astigmatism (distorted vision), and presbyopia (aging eyes). Myopia A myopic eye is longer than a normal eye or has a cornea that is too steep, causing light rays to focus in front of the retina instead of on it. With myopia, close objects appear clear, but distant ones appear blurred. Hyperopia A hyperopic eye is shorter than normal or has a cornea that is too flat. The light rays focus beyondthe retina instead of on it. Distant objects appear clear, but close ones appear blurred. Astigmatism The cornea of an astigmatic eye is curved unevenly. Images focus in front of and beyond the retina, causing both close and distant objects to appear blurry. Presbyopia Presbyopia refers to the hardening of the lens that occurs with age. After the age of 40, the lens becomes more rigid and cannot change shape as easily to accommodate near objects. This makes reading and other tasks performed at close range difficult. Presbyopia can occur in combination with any of the other three refractive errors. Refractive errors are usually corrected with eyeglasses or contact lenses. Sometimes surgery is needed or desirable. * You may receive a survey after today's visit. If we succeeded in meeting your goals, we want you to answer Definitely Yes to the questions in the survey. If you are not able to do so, please speak with one of your care team members today about any unanswered questions. Thanks so much for visiting us today! NG DESIGNER documented in this encounter Progress Notes Dane Ventura, OD - 02/06/2010 11:21 AM CST HPI Chief Complaint Patient presents with ??? EYE EXAM,YEARLY ADELSO 15 years ago. Pt states he had started taking Zoloft for CROWE's , pt states he whined himself offthe zoloft and the CROWE's are getting worse again. Pt states he has had CT scan 15 years ago and couldnot find out way he has constant pressure around his years. Right eye is worse. Pt states he needs to hold things closer to read. 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 CROWE's always start in the front of his eyes and move to the back of his heads. Pt states he has been on pain meds (Voltaren) for 5-6 year since back surgery. Pt states he has a white spot on the right eye for 3 years. Pt states he has had welding tenorio. History Reviewed Assessment Myopia Astigmatism Presbyopia Plan Spectacle Prescription given Return to clinic in 1 year(s) for REE. Dane Ventura, MICA NG DESIGNER documented in this encounter Plan of Treatment Not on filedocumented as of this encounter Visit Diagnoses Diagnosis Examination of eyes and vision - Primary Myopia Astigmatism, unspecified Presbyopia documented in this encounter Care Teams Mandrel Cleaner Relationship Specialty Start Date End Date Yaneth Dodd MD PCP - General 08/01/09 04/28/17 [address] [place] [address] documented as of this encounter
--- OUTSIDE RECORDS SUMMARY | 2022-01-16 08:07 | XMS_ITS | Encounter Summary ---
:1965 Author Organization [facility] Address [address] [place] [address] Care Team Providers Name Role Phone Unavailable Primary Care Provider Unavailable Encounter Details Date Type Department Care Team Description 03/04/2009 Scanned History External to Transferred Record, [facility] Social History Tobacco Use Types Packs/Day Years Used Date Smoking Tobacco: Former Cigarettes 0.5 3 Cigars Comments: Occasional cigar Alcohol Use Standard Drinks/Week Comments Yes 0 (1 standard drink = 0.6 oz pure alcoho l) Rare Sex Assigned at Date Recorded Not on file documented as of this encounter Progress Notes Interface, In Chrtscr And Scan - 03/04/2009 6:56 AM CASE MANAGEMENT SOCIAL WORKER MANAGEMENT SOCIAL WORKER documented in this encounter Plan of Treatment Not on filedocumented as of this encounter Visit Diagnoses Not on filedocumented in this encounter
--- OUTSIDE RECORDS SUMMARY | 2022-01-16 08:07 | XMS_ITS | Encounter Summary ---
:1965 Author Organization [facility] Address [address] [place] [address] Care Team Providers Name Role Phone Yaneth Dodd MD Primary Care Provider Reason for Visit Reason Onset Date Comments LAB TESTS, NOS 03/06/2010 Encounter Details Date Type Department Care Team Description 03/06/2010 Telephone [facility] Chris Dodd MD LAB TESTS, NOS [facility] [address] [facility] [address] [place] [address] [place] [address] 24 [phone] Social History Tobacco Use Types Packs/Day Years Used Date Smoking Tobacco: Former Cigarettes 0.5 3 Cigars Comments: Occasional cigar Alcohol Use Standard Drinks/Week Comments Yes 0 (1 standard drink = 0.6 oz pure alcoho l) Rare Sex Assigned at Date Recorded Not on file documented as of this encounter Nursing Notes Ninfa Matos, RN, BSN - 03/06/2010 12:42 PM CST Orders entered SIZER Boris Champagne - 03/06/2010 11:43 AM CST Patient on Lab Only Visit Schedule, no lab orders found in patient's chart. Please review and enter Future Lab Orders or notify the patient that lab work is not needed. Lab Only Visit scheduled for:03-10-10 After placing Future Orders, please route this Telephone Encounter to the following pool: AV Lab. SIZER documented in this encounter Plan of Treatment Not on filedocumented as of this encounter Results ALT (SGPT) (03/10/2010 10:01 AM HAT SIZER) P athologist Signature ALT (SGPT) 24 0 - 69 U/L [facility] Specimen Anatomical Collection Method Collection Time Receive d Time (Source) Location / / Volume Laterality 03/10/2010 10:03/10/2010 AM HAT SIZER 10:09 AM HAT SIZER Yaneth Dodd MD LAB_1 Performing Organization Address [facility] Phon e Number [facility] [phone] [facility] [address] [place] [phone] POTASSIUM (03/10/2010 10:01 AM HAT SIZER) athologist Signature Potassium 4.4 3.5 - 5.1 [facility] mmol/L Specimen Anatomical Collection Method Collection Time Receive d Time (Source) Location / / Volume Laterality 03/10/2010 10:01 03/10/2010 AM HAT SIZER 10:09 AM HAT SIZER Yaneth Dodd MD LAB_1 Performing Organization Address [facility] Phon e Number [facility] [phone] [facility] [address] [place] [phone] CREATININE / GFR (03/10/2010 10:01 AM HAT SIZER) Analysis Performed At Patho logist Time Signature Creatinine 1.03 0.66 - [facility] 1.25 mg/dl GFR, Estimated >60.0 >60 [facility] ml/min/1.7 3m2 GFR, Est., If >60.0 >60 [facility] Black ml/min/1.7 3m2 Specimen Anatomical Collection Method Collection Time Receive d Time (Source) Location / / Volume Laterality 03/10/2010 10:01 03/10/2010 AM HAT SIZER 10:09 AM HAT SIZER Yaneth Dodd MD LAB_1 Performing Organization Address City/[facility]/ZIP Code Phon e Number [facility] [phone] [address] (ABNORMAL) HEMOGRAM/PLTS (03/10/2010 10:01 AM HAT SIZER) P athologist Signature WBC 6.9 4.0 - 11.0 [facility] k/ul RBC 5.06 4.5 - 5.9 [facility] M/ul Hemoglobin 14.8 13.5 - [facility] 17.5 g/dl HCT 46.2 41.0 - [facility] 53.0 % MCV 91.4 80 - 100 [facility] fl MCH 29.2 26 - 34 pg [facility] MCHC 31.9 (L) 32 - 36 [facility] g/dl RDW 14.1 11.5 - [facility] 14.5 % Platelets 286 150 - 450 [facility] k/ul Specimen Anatomical Collection Method Collection Time Receive d Time (Source) Location / / Volume Laterality 03/10/2010 10:03/10/2010 AM HAT SIZER 10:09 AM HAT SIZER Yaneth Dodd MD LAB_1 Performing Organization Address [facility]/ZIP Code Phon e Number [facility] [phone] [address] (ABNORMAL) LIPID PANEL AND DIRECT LDL(IF NEEDED) (03/10/2010 10:01 AM HAT SIZER) [facility] gist Method Time Signature Cholesterol 275 (H) 0 - 199 [facility] mg/dl Triglyceride 173 (H) 0 - 149 [facility] mg/dl HDL 14 (L) >40 mg/dl [facility] LDL, Calc. 226 (H) 0 - 129 [facility] mg/dl Hours Fasting 12 hours [facility] Specimen Anatomical Collection Method Collection Time Receive d Time (Source) Location / / Volume Laterality 03/10/2010 10:01 03/10/2010 AM HAT SIZER 10:09 AM HAT SIZER Yaneth Dodd MD LAB_1 Performing Organization Address City/[facility]/ZIP Code Phon e Number [facility] [employer] [phone] [place] [id number] [address] documented in this encounter Visit Diagnoses Diagnosis Hypertension (HRC) - Primary Unspecified essential hypertension Encounter for long-term (current) use of other medications Hyperlipidemia LDL goal < 130 (HRC) Other and unspecified hyperlipidemia Screening for iron deficiency anemia documented in this encounter Care Teams Revenue Director Relationship Specialty Start Date End Date Yaneth Dodd MD PCP - General 08/01/09 04/28/17 [address] [place] [address] documented as of this encounter
--- OUTSIDE RECORDS SUMMARY | 2022-01-16 08:07 | XMS_ITS | Encounter Summary ---
:1965 Author Organization [facility] Address [address] [place] [address] Care Team Providers Name Role Phone Yaneth Dodd MD Primary Care Provider Reason for Visit Reason Comments HYPERLIPIDEMIA Encounter Details Date Type Department Care Team Description 08/12/2009 Office Visit [facility] Yaneth Dodd rlipidemia LDL Goal < 130 (Primary Dx); Criselda Crowe MD Screening for STDs (Sexually Transmitted Diseases) [address] [place] [phone] Social History Tobacco Use Types Packs/Day Years Used Date Smoking Tobacco: Former Cigarettes 0.5 3 Cigars Comments: Occasional cigar Alcohol Use Standard Drinks/Week Comments Yes 0 (1 standard drink = 0.6 oz pure alcoho l) Rare Sex Assigned at Date Recorded Not on file documented as of this encounter Last Filed Vital Signs Vital Sign Reading Time Taken Comments Blood Pressure 110/80 08/12/2009 10:55 AM CDT Pulse 76 08/12/2009 10:55 AM CDT Temperature - - Respiratory Rate - - Oxygen Saturation - - Inhaled Oxygen Concentration - - Weight - - Height - - Body Mass Index - - documented in this encounter Progress Notes Yaneth Dodd - 08/12/2009 12:03 PM CDT Subjective: 43-year-old male comes in for followup of recent blood work. I last visit, I had increased his Pravachol to 40 milligrams daily. He is tolerating that dose well. ALT is within normal limits. He got blood work done prior to this visit. Cholesterol has come down to 214 triglycerides 2:30 HDLof 33 and LDL of 135. This is improved but still not within normal limits. Objective:BP 110/80 Pulse 76 He appears well. Assessment: Hyperlipidemia. Plan: I am going to increase his Pravachol to 80 milligrams daily. We he will recheck with me in 3-4months. Also, he talked to me today about getting screened for STDs. He has had unprotected intercourse over the last few years. Would like to be checked for HIV and hepatitis C as he is in a relationship. Sexually transmitted disease screening is ordered. documented in this encounter Plan of Treatment Not on filedocumented as of this encounter Procedures Procedure Name Priority Date/Time Associated Diagnosis Comme nts HEPATITIS C Routine 08/12/2009 11:12 AM Screening for STDs Re sults for this ANTIBODY, WITH CDT (Sexually procedure are in REFLEX Transmitted the results Diseases) section. HIV ANTIBODY Routine 08/12/2009 11:12 AM Screening for STDs Re sults for this CDT (Sexually procedure are i n Transmitted the results Diseases) section. RPR (SYPHILIS Routine 08/12/2009 11:12 AM Screening for STDs R esults for this SCREEN) CDT (Sexually procedure are i n Transmitted the results Diseases) section. documented in this encounter Results HEPATITIS C AB (08/12/2009 11:12 AM CDT) athologist Signature Anti-HCV Non-Reacti NR [facility] ve Comment: Does Not Rule Out Infection wit h HCV Specimen Anatomical Collection Method Collection Time Receive d Time (Source) Location / / Volume Laterality 08/12/2009 11:12 08/12/2009 AM CDT 11:16 AM CDT Yaneth Dodd MD LAB_1 Performing Organization Address City/State/ZIP Code Phon e Number [facility] [employer] [phone] [facility] [address] HIV ANTIBODY (08/12/2009 11:12 AM CDT) [facility] [employer] Method Time Signature HIV 1/2 Negative NEGNR [facility] Antibody (Non Reactive) Comment: HIV Antibody testing may be falsely nega tive during the window period. If the patient has had recent exposure (within the past four weeks), consider contacting Infectious Diseases for clarification. Specimen Anatomical Collection Method Collection Time Receive d Time (Source) Location / / Volume Laterality 08/12/2009 11:12 08/12/2009 AM CDT 11:15 AM CDT Yaneth Dodd MD LAB_1 Performing Organization Address City/[facility] Phon e Number [facility] [employer] [phone] [address] RPR (SYPHILIS SCREEN) (08/12/2009 11:12 AM CDT) [facility] [employer] Method Time Signature Syphilis Non-React NR [facility] Screen(RPR) roxanna Specimen Anatomical Collection Method Collection Time Receive d Time (Source) Location / / Volume Laterality 08/12/2009 11:12 08/12/2009 AM CDT 11:16 AM CDT Yaneth Dodd MD LAB_1 Performing Organization Address City/[facility] Phon e Number [facility] [employer] [phone] [address] documented in this encounter Visit Diagnoses Diagnosis Hyperlipidemia LDL goal < 130 (HRC) - Pr imary Other and unspecified hyperlipidemia Screening for STDs (sexually transmitted diseases) Screening examination for venereal disea se documented in this encounter Care Teams Social Media Developer Relationship Specialty Start Date End Date Yaneth Dodd MD PCP - General 08/01/09 04/28/17 [address] [place] [address] documented as of this encounter
--- OUTSIDE RECORDS SUMMARY | 2022-01-16 08:07 | XMS_ITS | Encounter Summary ---
:1965 Author Organization [facility] Address [address] [place] [address] Care Team Providers Name Role Phone Yaneth Dodd MD Primary Care Provider Encounter Details Date Type Department Care Team Description 08/07/2009 Orders Only [facility] Hyperlipidemia LDL Goal < [address] [facility] [address], [place] [address] Social History Tobacco Use Types [...] Diagnosis Comme nts LIPID PANEL AND Routine 08/07/2009 8:38 AM Hyperlipidemia LDL Goal Results for this DIRECT LDL(IF CDT < 130 procedure are in NEEDED) the results section. ALT (SGPT) Routine 08/07/2009 8:38 AM Hyperlipidemia LDL Goa l Results for this CDT < 130 procedure are i n the results section. documented in this encounter Results ALT (SGPT) (08/07/2009 8:38 AM CDT) athologist Signature ALT (SGPT) 53 0 - 69 U/L invi Specimen Anatomical Collection Method Collection Time Receive d Time (Source) Location / / Volume Laterality 08/07/2009 8:38 AM 0 8:41 CDT AM CDT Yaneth Dodd MD LAB_1 Performing Organization Address [facility] Phon e Number [facility] [phone] [address] (ABNORMAL) LIPID PANEL AND DIRECT LDL(IF NEEDED) (08/07/2009 8:38 AM CDT) [facility] gist Method Time Signature Cholesterol 214 (H) 0 - 199 [facility] mg/dl Triglyceride 230 (H) 0 - 149 [facility] mg/dl HDL 33 (L) >40 mg/dl [facility] LDL, Calc. 135 (H) 0 - 129 [facility] mg/dl Hours Fasting 11.5 hours [facility] Specimen Anatomical Collection Method Collection Time Receive d Time (Source) Location / / Volume Laterality 08/07/2009 8:38 AM 0 8:41 CDT AM CDT Yaneth Dodd MD LAB_1 Performing Organization Address [facility] Phon e Number [facility] [employer] [phone] [address] documented in this encounter Visit Diagnoses Diagnosis Hyperlipidemia LDL goal < 130 (HRC) Other and unspecified hyperlipidemia documented in this encounter Care Teams Marketing Financial Analyst Relationship Specialty Start Date End Date Yaneth Dodd MD PCP - General 08/01/09 04/28/17 [address] [place] [address] documented as of this encounter
--- OUTSIDE RECORDS SUMMARY | 2022-01-16 08:07 | XMS_ITS | Encounter Summary ---
:1965 Author Organization [facility] Address [address] [place] [address] Care Team Providers Name Role Phone Unavailable Primary Care Provider Unavailable Encounter Details Date Type Department Care Team Description 05/09/2009 Orders Only [facility] Hyperlipidemia LDL Goal < 13 0; [address] [facility] Encounter for Long-Term (Cur rent) Use of Other Medications [place], [place] [address] Social History Tobacco Use [...] Diagnosis Comme nts LIPID PANEL AND Routine 05/09/2009 9:32 AM Hyperlipidemia LDL Results for this DIRECT LDL(IF GENERATOR MECHANIC Goal < 130 procedure are in NEEDED) the results section. CREATININE / GFR Routine 05/09/2009 9:32 AM Encounter for Resu lts for this GENERATOR MECHANIC Long-Term (Current) procedur e are in Use of Other the results Medications section. ALT (SGPT) Routine 05/09/2009 9:32 AM Encounter for Results for this GENERATOR MECHANIC Long-Term (Current) procedur e are in Use of Other the results Medications section. Hyperlipidemia LDL Goal < 130 SODIUM Routine 05/09/2009 9:32 AM Encounter for Results for this GENERATOR MECHANIC Long-Term (Current) procedur e are in Use of Other the results Medications section. POTASSIUM Routine 05/09/2009 9:32 AM Encounter for Results for this GENERATOR MECHANIC Long-Term (Current) procedur e are in Use of Other the results Medications section. documented in this encounter Results SODIUM (05/09/2009 9:32 AM GENERATOR MECHANIC) athologist Signature Sodium 141 135 - 145 [facility] mmol/L Specimen Anatomical Collection Method Collection Time Receive d Time (Source) Location / / Volume Laterality 05/09/2009 9:32 AM 0 9:35 GENERATOR MECHANIC AM GENERATOR MECHANIC Yaneth Dodd MD LAB_1 Performing Organization Address [facility] Phon e Number [facility] [employer] [phone] [facility] [address] [place] [address] CREATININE / GFR (05/09/2009 9:32 AM GENERATOR MECHANIC) [facility] Time Signature Creatinine 1.1 0.7 - 1.2 [facility] mg/dl GFR, Estimated 73.1 >60 [facility] ml/min/1.7 3m2 GFR, Est., If >80.0 >60 [facility] Black ml/min/1.7 3m2 Specimen Anatomical Collection Method Collection Time Receive d Time (Source) Location / / Volume Laterality 05/09/2009 9:32 AM 0 9:35 GENERATOR MECHANIC AM GENERATOR MECHANIC Yaneth Dodd MD LAB_1 Performing Organization Address [facility] Phon e Number [facility] [phone] [facility] [address] [place] [phone] POTASSIUM (05/09/2009 9:32 AM GENERATOR MECHANIC) athologist Signature Potassium 4.2 3.5 - 5.3 [facility] mmol/L Specimen Anatomical Collection Method Collection Time Receive d Time (Source) Location / / Volume Laterality 05/09/2009 9:32 AM 0 9:35 GENERATOR MECHANIC AM GENERATOR MECHANIC Yaneth Dodd MD LAB_1 Performing Organization Address [facility] Phon e Number [facility] [employer] [phone] [phone] ALT (SGPT) (05/09/2009 9:32 AM GENERATOR MECHANIC) P athologist Signature ALT (SGPT) 45 0 - 55 U/L [facility] Specimen Anatomical Collection Method Collection Time Receive d Time (Source) Location / / Volume Laterality 05/09/2009 9:32 AM 0 9:35 GENERATOR MECHANIC AM GENERATOR MECHANIC Yaneth Dodd MD LAB_1 Performing Organization Address City/[facility] Phon e Number [facility] [phone] [facility] [address] [phone] (ABNORMAL) LIPID PANEL AND DIRECT LDL(IF NEEDED) (05/09/2009 9:32 AM GENERATOR MECHANIC) [facility] gist Method Time Signature Cholesterol 236 (H) 0 - 199 [facility] mg/dl Triglyceride 321 (H) 0 - 149 [facility] mg/dl HDL 31 (L) >40 mg/dl [facility] LDL, Calc. 141 (H) 0 - 129 [facility] mg/dl Hours Fasting 12 hours [facility] Specimen Anatomical Collection Method Collection Time Receive d Time (Source) Location / / Volume Laterality 05/09/2009 9:32 AM 0 9:35 GENERATOR MECHANIC AM GENERATOR MECHANIC Yaneth Dodd MD LAB_1 Performing Organization Address City/[facility] Phon e Number [facility] [phone] [facility] [address] [place] [phone] documented in this encounter Visit Diagnoses Diagnosis Hyperlipidemia LDL goal < 130 (HRC) Other and unspecified hyperlipidemia Encounter for long-term (current) use of other medications documented in this encounter
--- OUTSIDE RECORDS SUMMARY | 2022-01-16 08:07 | XMS_ITS | Encounter Summary ---
:1965 Author Organization [facility] Address [address] [place] [address] Care Team Providers Name Role Phone Unavailable Primary Care Provider Unavailable Reason for Visit Reason Onset Date Comments LAB TESTS, NOS 05/08/2009 Encounter Details Date Type Department Care Team Description 05/08/2009 [facility] MD LAB TESTS, NOS [facility] [address] [facility] [address] [place] [address] [place] [address] [phone] Social History Tobacco Use Types Packs/Day Years Used Date Smoking Tobacco: Former Cigarettes 0.5 3 Cigars Comments: Occasional cigar Alcohol Use Standard Drinks/Week Comments Yes 0 (1 standard drink = 0.6 oz pure alcoho l) Rare Sex Assigned at Date Recorded Not on file documented as of this encounter Nursing Notes Ninfa Matos RN, BSN - 05/08/2009 12:05 PM CST Orders entered ING MACHINE OPERATOR Virginia Carrion - 05/08/2009 11:56 AM CST Patient on Lab Only Visit Schedule, no lab orders found in patient's chart. Please review and enter future lab orders or notify the patient that lab work is not needed. Lab Only Visit scheduled for:[id number] ING MACHINE OPERATOR documented in this encounter Plan of Treatment Not on filedocumented as of this encounter Results SODIUM (05/09/2009 9:32 AM NICKING MACHINE OPERATOR) athologist Signature Sodium 141 135 - 145 [facility] mmol/L Specimen Anatomical Collection Method Collection Time Receive d Time (Source) Location / / Volume Laterality 05/09/2009 9:32 AM 0 9:35 NICKING MACHINE OPERATOR AM NICKING MACHINE OPERATOR Yaneth Dodd MD LAB_1 Performing Organization Address [facility] Phon e Number [facility] [employer] [phone] [facility] [address] [place] [phone] CREATININE / GFR (05/09/2009 9:32 AM NICKING MACHINE OPERATOR) Analysis Performed At [facility] Time Signature Creatinine 1.1 0.7 - 1.2 [facility] mg/dl GFR, Estimated 73.1 >60 [facility] ml/min/1.7 3m2 GFR, Est., If >80.0 >60 [facility] Black ml/min/1.7 3m2 Specimen Anatomical Collection Method Collection Time Receive d Time (Source) Location / / Volume Laterality 05/09/2009 9:32 AM 0 9:35 NICKING MACHINE OPERATOR AM NICKING MACHINE OPERATOR Yaneth Dodd MD LAB_1 Performing Organization Address [facility] Phon e Number [facility] [phone] [facility] [address] [place] [phone] POTASSIUM (05/09/2009 9:32 AM NICKING MACHINE OPERATOR) athologist Signature Potassium 4.2 3.5 - 5.3 [facility] mmol/L Specimen Anatomical Collection Method Collection Time Receive d Time (Source) Location / / Volume Laterality 05/09/2009 9:32 AM 0 9:35 NICKING MACHINE OPERATOR AM NICKING MACHINE OPERATOR Yaneth Dodd MD LAB_1 Performing Organization Address [facility] Phon e Number [facility] [phone] [phone] ALT (SGPT) (05/09/2009 9:32 AM NICKING MACHINE OPERATOR) P athologist Signature ALT (SGPT) 45 0 - 55 U/L [facility] Specimen Anatomical Collection Method Collection Time Receive d Time (Source) Location / / Volume Laterality 05/09/2009 9:32 AM 0 9:35 NICKING MACHINE OPERATOR AM NICKING MACHINE OPERATOR Yaneth Dodd MD LAB_1 Performing Organization Address City/[facility] e Number [facility] [phone] [facility] [address] [phone] (ABNORMAL) LIPID PANEL AND DIRECT LDL(IF NEEDED) (05/09/2009 9:32 AM NICKING MACHINE OPERATOR) [facility] gist Method Time Signature Cholesterol 236 (H) 0 - 199 [facility] mg/dl Triglyceride 321 (H) 0 - 149 [facility] mg/dl HDL 31 (L) >40 mg/dl [facility] LDL, Calc. 141 (H) 0 - 129 [facility] mg/dl Hours Fasting 12 hours [facility] Specimen Anatomical Collection Method Collection Time Receive d Time (Source) Location / / Volume Laterality 05/09/2009 9:32 AM 0 9:35 NICKING MACHINE OPERATOR AM NICKING MACHINE OPERATOR Yaneth Dodd MD LAB_1 Performing Organization Address City/[facility] Phon e Number [facility] [phone] [facility] [address] [place] [phone] documented in this encounter Visit Diagnoses Diagnosis Encounter for long-term (current) use of other medications Hyperlipidemia LDL goal < 130 (HRC) Other and unspecified hyperlipidemia documented in this encounter
--- OUTSIDE RECORDS SUMMARY | 2022-01-16 08:07 | XMS_ITS | Encounter Summary ---
:1965 Author Organization [employer] [employer] Address [address] [place] [address] Care Team Providers Name Role Phone Yaneth Dodd MD Primary Care Provider Reason for Visit Reason Comments MEDICATION CHECK Health Maintanence Declined flu vaccine Encounter Details Date Type Department Care Team Description 11/19/2009 Office Visit [facility] Yaneth Dodd rlipidemia LDL Goal < 130 (Primary Dx); Criselda Crowe MD Hypertension; [address] [facility] [address] [facility] [place] [address] [id number] Social History Tobacco Use Types Packs/Day Years Used Date Smoking Tobacco: Former Cigarettes 0.5 3 Cigars Comments: Occasional cigar Alcohol Use Standard Drinks/Week Comments Yes 0 (1 standard drink = 0.6 oz pure alcoho l) Rare Sex Assigned at Date Recorded Not on file documented as of this encounter Last Filed Vital Signs Vital Sign Reading Time Taken Comments Blood Pressure 130/90 11/19/2009 10:47 AM CDT Pulse 62 11/19/2009 10:44 AM CDT Temperature 36.4 ??C (97.6 ??F) 11/19/2009 10:44 AM CDT Respiratory Rate - - Oxygen Saturation - - Inhaled Oxygen Concentration - - Weight 92.5 kg (204 lb) 11/19/2009 10:44 AM CDT Height - - Body Mass Index 26.91 05/13/2009 9:52 AM GAGE DESIGNER documented in this encounter Progress Notes Yaneth Dodd - 11/19/2009 12:00 PM CDT Subjective: A 43-year-old male comes in for followup of cholesterol. He is currently on Pravachol, 80 milligrams daily. He is tolerating the medication well. However, I do not see much change in his lab work. Orders Only on 11/15/2009 Component Date Value Range Status ??? CHOLESTEROL (mg/dl) 11/15/2009 212* 0-199 Final ??? TRIGLYCERIDE (mg/dl) 11/15/2009 332* 0-149 Final ? ? HDL (mg/dl) 11/15/2009 34* >40- Final ??? LDL, CALC. (mg/dl) 11/15/2009 112 0-129 Final ??? HOURS FASTING (hours) 11/15/2009 Information Not Given - Final ??? ALT (SGPT) (U/L) 11/15/2009 64 0-69 Final Objective:BP 130/90 Pulse 62 Temp 97.6 ??F (36.4 ??C) Wt 204 lb (92.534 kg) He appears well. Assessment: Hyperlipidemia. Hypertension. He is currently on lisinopril, 10 milligrams daily. He takes his lisinopril at bedtime. He did have a mom to just prior to this appointment. For that reason, Yong I am not going to increase his medications at this point. He will start taking his lisinopril in the morning and we will see how he does with that. Plan: His hyperlipidemia really is not changing much despite being on large doses of Pravachol. His triglycerides tend to be elevated. At this point, I think I am going to change his cholesterol medicine to fenofibrate, 160 milligrams daily. We will discontinue the Pravachol for now. We will recheck af ter the first of the year. He will call me sooner if he is having any difficulty. Finally, just prior to leaving we did also talk about his migraine headaches. Apparently his ex- had some Maxalt that he used when he was having one of his severe headaches. He found it quite helpful. Because of that, I think a prescription for Imitrex documented in this encounter Plan of Treatment Not on filedocumented as of this encounter Visit Diagnoses Diagnosis Hyperlipidemia LDL goal < 130 (HRC) - Pr imary Other and unspecified hyperlipidemia Hypertension (HRC) Unspecified essential hypertension Migraine headache Migraine, unspecified, without mention o f intractable migraine without mention of status migrainosus documented in this encounter Care Teams Curtain Framer Relationship Specialty Start Date End Date Yaneth Dodd MD PCP - General 08/01/09 04/28/17 [address] [place] [address] documented as of this encounter
--- OUTSIDE RECORDS SUMMARY | 2022-01-16 08:08 | XMS_ITS | Encounter Summary ---
:1965 Author Organization [employer] Address [address] [place] [address] Care Team Providers Name Role Phone Unavailable Primary Care Provider Unavailable Reason for Visit Reason Comments MEDICATION CHECK LAB TESTS, NOS WART on right pointer finger Encounter Details Date Type Department Care Team Description 02/27/2009 Office Visit [facility] Camilo Martinez, Hyper lipidemia LDL Goal < 130 (Primary Dx); Practice MD Hypertension; [address] [facility] [address] [facility] Genital Herpes; [place], [place] General ized Headaches; [address] Chronic Low Back Pain; [phone] GERD (Gastroeso phageal Reflux Disease) (Work) Social History Tobacco Use Types Packs/Day Years Used Date Smoking Tobacco: Former Cigarettes 0.5 3 Cigars Comments: Occasional cigar Alcohol Use Standard Drinks/Week Comments Yes 0 (1 standard drink = 0.6 oz pure alcoho l) Rare Sex Assigned at Date Recorded Not on file documented as of this encounter Last Filed Vital Signs Vital Sign Reading Time Taken Comments Blood Pressure 126/90 02/27/2009 10:13 AM INSTRUMENTATION SUPERVISOR Pulse 60 02/27/2009 10:13 AM INSTRUMENTATION SUPERVISOR Temperature - - Respiratory Rate 16 02/27/2009 10:13 AM INSTRUMENTATION SUPERVISOR Oxygen Saturation - - Inhaled Oxygen Concentration - - Weight 95.2 kg (209 lb 12.8 oz) 02/27/2009 10:13 AM INSTRUMENTATION SUPERVISOR Height 185.4 cm (6' 1) 02/27/2009 10:13 AM INSTRUMENTATION SUPERVISOR Body Mass Index 27.68 02/27/2009 10:13 AM INSTRUMENTATION SUPERVISOR documented in this encounter Progress Notes Camilo Martinez - 02/27/2009 1:00 PM CST SUBJECTIVE: Patient presents for first visit to our clinic. Previous followed by Dr. Jose Antonio Mckeon at [facility]. His history of chronic low back pain status post L4-L5 laminectomy x2 in 1999. L5-S1 laminectomy in 2000, L4-S1 fusion 2000. Chronically takes diclofenac acid for chronic low back pain. States he also has some neck degenerative joint disease. History of hypertension, treated x5 months. Currently on lisinopril 10 milligrams daily. Uncertain control. Last blood pressure at Dr. Mckeon's office two months ago was 120/78. History of recurrent genital herpes on suppressive acyclovir 400 milligrams b.i.d. with no recurrences since he has been on that dose. History of gastroesophageal reflux disease, on chronic omeprazole. Develops increased reflux and dyspepsia if he stops it. History of chronic headaches, has been on Zoloft for this for over 10 years with good suppression ofthe headaches. He does not have a history of depression he states. History of hyperlipidemia with last lipid panel on December 31 showing total cholesterol 272, triglyceride 336, HDL 33, LDL 172. Was started on Pravachol 20 milligrams daily and is here now for first lipid panel on that medication. He has no other cardiac risk factors other than hypertension. CBC, basic metabolic panel, LFTs were all normal in December at other clinic. Patient brought some records from his previous clinic with him and these will be scan. Included in this was a cervical spine x-ray showing altered level degenerative disc and facet disease. Patient also states he has had a wart on the right index finger that is treated and treated a coupletimes with liquid nitrogen but has not fully resolved. Medications marked Taking as of 02/27/09 encounter (Office Visit) with CAMILO MARTINEZ: acyclovir (AKA ZOVIRAX) 400 MG tablet 1 tablet twice daily Disp: 3 month Rfl: prn diclofenac (AKA VOLTAREN) 75 MG tablet 1 tablet twice daily Disp: 3 month Rfl: prn lisinopril (AKA ZESTRIL) 10 MG tablet Take one tablet by mouth every day. Disp: 3 months Rfl: prn omeprazole (AKA PRILOSEC) 20 MG delayed release capsule 1 tablet daily Disp: 3 months Rfl: prn sertraline (AKA ZOLOFT) 100 MG tablet 1 tablet daily for headaches Disp: 3 months Rfl: prn EMR updated with past medical, surgical, family, social history. OBJECTIVE: BP 126/90 Pulse 60 Resp 16 Ht 6' 1 (1.854 m) Wt 209 lb 12.8 oz (95.165 kg) Repeat blood pressure 128/90. 1-2 millimeter flat wart on the right distal index finger. Further exam not performed. ASSESSMENT: Encounter Diagnoses Code Name Primary? Qualifier ? ? 272.4CV Hyperlipidemia LDL Goal < 130 Plan: PRAVASTATIN SODIUM 20 MG OR TABS, LIPID PANEL AND DIRECT LDL(IF NEEDED), ALT (SGPT), LIPID PANEL AND DIRECT LDL(IF NEEDED), ALT (SGPT) ??? 401.9AH Hypertension Plan: LISINOPRIL 10 MG OR TABS ??? 054.10K Genital Herpes Plan: ACYCLOVIR 400 MG OR TABS ??? 784.0BY Generalized Headaches Plan: SERTRALINE HCL 100 MG OR TABS ??? 724.2AG Chronic Low Back Pain Plan: DICLOFENAC SODIUM 75 MG OR TBEC ??? 530.81K GERD (Gastroesophageal Reflux Disease) Plan: OMEPRAZOLE 20 MG OR CPDR right index finger wart, not treated today PLAN: Refilled all his medications. May require increased dose of Pravachol depending on repeat lipids. FLP and ALT today. Advise followup in three months for recheck of blood pressure. In the meantime patient to try to getmore blood pressure readings. Can retreat wart in the future if desired but forgot to do that today. RUMENTATION SUPERVISOR documented in this encounter Plan of Treatment Not on filedocumented as of this encounter Procedures Procedure Name Priority Date/Time Associated Diagnosis Comme nts LIPID PANEL AND Routine 02/27/2009 11:04 Hyperlipidemia LDL Go al Results for this DIRECT LDL(IF AM INSTRUMENTATION SUPERVISOR < 130 procedure are in NEEDED) the results section. ALT (SGPT) Routine 02/27/2009 11:04 Hyperlipidemia LDL Goal Results for this AM INSTRUMENTATION SUPERVISOR < 130 procedure are i n the results section. documented in this encounter Results ALT (SGPT) (02/27/2009 11:04 AM INSTRUMENTATION SUPERVISOR) P athologist Signature ALT (SGPT) 48 0 - 55 U/L [facility] Specimen Anatomical Collection Method Collection Time Receive d Time (Source) Location / / Volume Laterality 02/27/2009 11:04 02/27/2009 AM INSTRUMENTATION SUPERVISOR 11:12 AM INSTRUMENTATION SUPERVISOR Camilo Martinez MD LAB_1 Performing Organization Address City/[facility] Phon e Number [facility] PopJam [phone] [facility] [address] [place] [address] (ABNORMAL) LIPID PANEL AND DIRECT LDL(IF NEEDED) (02/27/2009 11:04 AM INSTRUMENTATION SUPERVISOR) [facility] Method Time Signature Cholesterol 232 (H) 0 - 199 [facility] mg/dl Triglyceride 270 (H) 0 - 149 [facility] mg/dl HDL 39 (L) >40 mg/dl [facility] LDL, Calc. 139 (H) 0 - 129 [facility] mg/dl Hours Fasting 12 hours [facility] Specimen Anatomical Collection Method Collection Time Receive d Time (Source) Location / / Volume Laterality 02/27/2009 11:04 02/27/2009 AM INSTRUMENTATION SUPERVISOR 11:12 AM INSTRUMENTATION SUPERVISOR Camilo Martinez MD LAB_1 Performing Organization Address City/[facility] Phon e Number [facility] [employer] [phone] [address] documented in this encounter Visit Diagnoses Diagnosis Hyperlipidemia LDL goal < 130 (HRC) - Pr imary Other and unspecified hyperlipidemia Hypertension (HRC) Unspecified essential hypertension Genital herpes (HRC) Genital herpes, unspecified Generalized headaches Headache Chronic low back pain Lumbago GERD (gastroesophageal reflux disease) Esophageal reflux documented in this encounter
--- OUTSIDE RECORDS SUMMARY | 2022-01-16 08:08 | XMS_ITS | Encounter Summary ---
:1965 Author Organization [facility] Address [address] [address] Care Team Providers Name Role Phone Unavailable Primary Care Provider Unavailable Encounter Details Date Type Department Care Team Description 03/04/2009 Orders Only External to Unknown, [facility] [address] [place] [address] (Wo rk) Social History Tobacco Use Types Packs/Day Years Used Date Smoking Tobacco: Former Cigarettes 0.5 3 Cigars Comments: Occasional cigar Alcohol Use Standard Drinks/Week Comments Yes 0 (1 standard drink = 0.6 oz pure alcoho l) Rare Sex Assigned at Date Recorded Not on file documented as of this encounter Procedure Notes Transferred Record, Provider - 03/04/2009 12:00 AM CSTAssociated Order(s): OUTSIDE IMAGING Transferred Record, Provider - 03/04/2009 12:00 AM CSTAssociated Order(s): SCANNED LAB documented in this encounter Plan of Treatment Not on filedocumented as of this encounter Procedures Procedure Name Priority Date/Time Associated Diagnosis Comme nts OUTSIDE IMAGING 03/04/2009 12:00 AM Resul ts for this TELECASTING TECHNICIAN procedure are i n the results section. SCANNED LAB 03/04/2009 12:00 AM Results for this TELECASTING TECHNICIAN procedure are i n the results section. documented in this encounter Results SCANNED LAB (03/04/2009 12:00 AM TELECASTING TECHNICIAN) Specimen (Source) Anatomical Location Collection Method / Collectio n Time Received Time / Laterality Volume 03/04/2009 Narrative 03/04/2009 12:00 AM TELECASTING TECHNICIAN This result has an attachment that is no t available. Ordered by an unspecified provider. Transcriptions Transferred Record, Provider - 9 12:00 AM TELECASTING TECHNICIAN Physician Unknown LAB_1 OUTSIDE IMAGING (03/04/2009 12:00 AM TELECASTING TECHNICIAN) Anatomical Region Laterality Modality Other Specimen (Source) Anatomical Location Collection Method / Collectio n Time Received Time / Laterality Volume 03/04/2009 Narrative 03/04/2009 12:00 AM TELECASTING TECHNICIAN This result has an attachment that is no t available. Ordered by an unspecified provider. Transcriptions Transferred Record, Provider - 9 12:00 AM TELECASTING TECHNICIAN Physician Unknown RAD_1 documented in this encounter Visit Diagnoses Not on filedocumented in this encounter
--- NOTE | 2022-01-16 08:15 | MR_ITS ---
[address] [address] Phone:?[phone] Fax:?[phone] Referring Physician Information: Dago Rojo M.D. [address] [facility] [address] Phone:?[phone] Fax:?[phone] Patient:Janett Alvarado D.O.B:?1965 Sex:?Male Phone:?[phone] [facility] MRN:?[id number] Exam Date:?01/16/2022 ? EXAM: MRI of the RIGHT SHOULDER, without contrast CLINICAL: Right shoulder pain. Evaluate for rotator cuff tear. COMPARISONS: None available. TECHNICAL: MRI sequences of the right shoulder: Axials: PD, PDFS Coronals: PD, T2FS Sagittals: PDFS, T2 SEDATION: None. CONTRAST: None. FINDINGS: Rotator cuff: Supraspinatus/Infraspinatus: Mild tendinosis of the distal supraspinatus and infraspinatus tendons without significant tendon tear. No significant fatty atrophy of the muscle bellies. Teres minor: No tendinosis, tear or atrophy. Subscapularis: Mild tendinosis of the distal tendon with mild partial articular surface tearing seen to involve the distal tendon on axial series 3.2 images 47- 48. No significant fatty atrophy of the muscle belly. Bursae: Subacromial-subdeltoid: Minimal fluid within the bursa. Subcoracoid: No convincing subcoracoid bursal thickening/bursitis. Coracoacromial arch: Acromion morphology: Type I. No os acromiale. Acromiohumeral space: Within normal limits. Coracohumeral space: Within normal limits. Biceps tendon, long head: Mild tendinosis of the intra-articular tendon. No significant tendon tear or displacement. Glenohumeral joint: Physiologic volume of joint fluid. Articular cartilage: No significant chondral loss. Capsule: No convincing evidence of capsular thickening or injury. Labrum: No labral tears. No perilabral cyst identified. Bones: No suspicious marrow signal alteration, fracture or dislocation. Acromioclavicular joint: Moderate changes of arthrosis. No AC joint injury/widening. IMPRESSION: 1. Mild tendinosis of the distal supraspinatus, infraspinatus and subscapularis tendons with mild partial articular surface tearing of the distal subscapularis tendon. 2. Mild tendinosis of the intra-articular long head biceps tendon. 3. Moderate AC joint arthrosis. 4. No additional internal derangement. JCZ Electronically signed on 01/16/2022 11:40:00 AM by Sideny Camacho D.O.
== END 2022-01-16 07:54 | disposition home or self-care (01) ==
LOC: MRI 07:53
PROVIDERS: PCP Family Medicine; Visit Provider Orthopaedic Surgery Sports Medicine
DX: M25.511 Pain in right shoulder (principal); M19.011 Primary osteoarthritis, right shoulder; S46.911A Strain of unspecified muscle, fascia and tendon at shoulder and upper arm level, right arm, initial encounter; M75.101 Unspecified rotator cuff tear or rupture of right shoulder, not specified as traumatic
CPT/HCPCS: 73221

== ENCOUNTER 2022-02-09 08:54 | Outpatient (CLI) | payer MEDICAID, SELFPAY ==
--- OUTSIDE RECORDS SUMMARY | 2022-02-09 09:04 | XMS_ITS | Encounter Summary ---
:1965 Author Organization [facility] Address [address] [address] Care Team Providers Name Role Phone Found, No Pcp Primary Care Provider Unavailable Reason for Visit Reason Comments ERRONEOUS ENTRY Encounter Details Date Type Department Care Team Description 10/04/2019 Telephone [facility] Tez Vazquez PAAshleyC ERRONEOUS ENTRY Practice [address] [facility] [address] [place] [address] [place] [address] [phone] Social History Tobacco Use Types Packs/Day Years [...] on filedocumented in this encounter Care Teams Consulting Manager Relationship Specialty Start Date End Date Found, No Pcp, PCP - General 10/04/19 11/28/19 [address] [place] [address] documented as of this encounter
--- OUTSIDE RECORDS SUMMARY | 2022-02-09 09:04 | XMS_ITS | Encounter Summary ---
:1965 Author Organization [facility] Address [address], [place] [address] Care Team Providers Name Role Phone Found, No Pcp MD Primary Care Provider Unavailable Reason for Visit Reason Comments Refill omeprazole (PRILOSEC) 20 MG capsule [Pharmacy Med Name: Omeprazole Oral Capsule Delayed Release 20 M G]; tamsulosin (FLOMAX) 0.4 MG CAPS capsule [Pharmacy Med Name: Tamsulos in HCl Oral Capsule 0.4 MG] Encounter Details Date Type Department Care Team Description 09/28/2019 Refill [facility] George, Briana M, Ref ill (omeprazole Practice PA-C (PRILOSEC) [address] [address] [facility] [address] [facility] [Pharmacy Med Name: [place], [place] [address] [place], [place] Omeprazole Oral Capsule [phone] [address] Delayed Release 20 MG]; [phone] (Wo rk) tamsulosin (FLOMAX) 0.4 MG CAPS [...] patient Patient is due for: Office Visit [Chemical Instrumentation Officer: We recently received a refill request for one of your medications. In order to ensure your medication is safe and effective, your clinician needs to see you at least yearly for an office visit. May I help you schedule that office visit?] Patient declined to schedule due to: patient has established care with new provider in [place], he no longer will be coming to [facility] [Chemical Instrumentation Officer: I will let your clinician know so [...] call attempted. Left message to call back. Jhonaa Hoang Siomara Ivy RN - 09/29/2019 10:03 AM CDT Further Assistance Needed on Refill from Business Development Intern Patient is overdue for Office visit. Due now for [facility] visit with George. Please call patient to [...] hour before a meal (unchanged) Powered by [employer], Reference: [id number], 09/28/2019 1:44:47 PM CDT, Pool: AV REFFAM RN ([id number]) tamsulosin (FLOMAX) 0.4 MG CAPS capsule [Pharmacy [...] capsule by mouth daily (unchanged) Powered by [employer], Reference: [id number], 09/28/2019 1:44:47 PM CDT, Pool: WYLIE RN ([id number]) documented in this encounter Plan of Treatment Not on filedocumented as of this encounter Visit Diagnoses Diagnosis Urinary urgency Urgency of urination documented in this encounter Care Teams Psychiatrist Relationship Specialty Start Date End Date Found, No Pcp, PCP - General 10/04/19 11/28/19 [address] [place] [address] documented as of this encounter
--- OUTSIDE RECORDS SUMMARY | 2022-02-09 09:04 | XMS_ITS | Encounter Summary ---
:1965 Author Organization [facility] Address [address], [place] [address] Care Team Providers Name Role Phone Briana Cabrera PA-C Primary Care Provider Reason for Visit Reason Comments Refill gabapentin (NEURONTIN) 600 M G tablet [Pharmacy Med Name: Gabapentin Oral Tablet 600 MG] Encounter Details Date Type Department Care Team Description 03/29/2020 Refill [facility] Briana Cabrera, Ref ill (gabapentin Practice ARLET (NEURONTIN) 600 MG [address] [place] [address] [address] tablet [Pharmacy Med [place], [place] [address] [place], [place] Name: Gabapentin Oral [phone] Tablet 600 MG]) [phone] (Wo rk) Social History Tobacco Use Types [...] mouth three times daily (unchanged) Powered by [employer], Reference: [id number], 03/29/2020 1:53:58 PM TECHNOLOGY INTERNSHIP, Pool: ROB REFILL RN ([id number]) NOLOGY INTERNSHIP documented in this encounter Plan of Treatment Not on filedocumented as of this encounter Visit Diagnoses Not on filedocumented in this encounter Care Teams Retail Parts Professional Relationship Specialty Start Date End Date Briana Cabrera PA-C PCP - General Physician Frame Fixer 11/29/19 [address] [place] [address] documented as of this encounter
--- OUTSIDE RECORDS SUMMARY | 2022-02-09 09:04 | XMS_ITS | Encounter Summary ---
:1965 Author Organization [facility] Address [address] [address] Care Team Providers Name Role Phone Briana Cabrera PA-C Primary Care Provider Reason for Visit Reason Comments Refill diclofenac (VOLTAREN) 75 MG enteric coated tablet [Pharmacy Med Name: Diclofenac Sodium Oral Table t Delayed Release 75 MG] Encounter Details Date Type Department Care Team Description 04/25/2020 Refill [facility] Briana Cabrera, Ref ill (diclofenac Practice ARLET (VOLTAREN) 75 MG enteric [address] [place] [address] coated tablet [Pharmacy [place], [place] [address] [place], [place] Med Name: Diclofenac [phone] Sodium Oral Tablet [phone] (Wo rk) Delayed Release 75 MG]) Social [...] TAKE ONE TABLET BY MOUTH TWICE DAILY RITY RISK ANALYST Interface, Out Surescripts Prov Query - [...] WBC: 7.7 k/cmm on 09/10/2015 Powered by [facility], Reference: [id number], 04/25/2020 8:52:59 AM Hector CENTENO: WYLIE RN ([id number]) documented in this encounter Plan of Treatment Not on filedocumented as of this encounter Visit Diagnoses Diagnosis Right knee pain, unspecified chronicity documented in this encounter Care Teams Service Engine Repairer Relationship Specialty Start Date End Date Briana Cabrera PA-C PCP - General Physician Cw Operator 11/29/19 [address] [place] [address] documented as of this encounter
--- OUTSIDE RECORDS SUMMARY | 2022-02-09 09:04 | XMS_ITS | Encounter Summary ---
:1965 Author Organization [facility] Address [address], [place] [address] Care Team Providers Name Role Phone Briana Cabrera PA-C Primary Care Provider Reason for Visit Reason Comments Refill diclofenac (VOLTAREN) 75 MG enteric coated tablet [Pharmacy Med Name: Diclofenac Sodium Oral Table t Delayed Release 75 MG] Encounter Details Date Type Department Care Team Description 08/03/2019 Refill [facility] Briana Cabrera, Ref ill (diclofenac Practice ARLET (VOLTAREN) 75 MG enteric [address] [place] [address] coated tablet [Pharmacy [place], [place] [address] [place], [place] Med Name: Diclofenac [phone] [address] Sodium Oral Tablet [phone] (Wo rk) Delayed Release 75 MG]) Social [...] WBC: 7.7 k/cmm on 09/10/2015 Powered by [email or web address], Reference: [id number], 08/03/2019 10:50:57 AM CDT, Pool: WYLIE RN ([id number]) documented in this encounter Plan of Treatment Not on filedocumented as of this encounter Visit Diagnoses Diagnosis Right knee pain, unspecified chronicity documented in this encounter Care Teams Railway Yard Assistant Relationship Specialty Start Date End Date Briana Cabrera PAAshleyC PCP - General Physician Admitting Counselor 06/30/17 10/03/19 [address] [place] [address] documented as of this encounter
--- OUTSIDE RECORDS SUMMARY | 2022-02-09 09:04 | XMS_ITS | Encounter Summary ---
:1965 Author Organization [facility] Address [address], [place] [address] Care Team Providers Name Role Phone Briana Cabrera PA-C Primary Care Provider Reason for Visit Reason Comments Refill tolterodine (DETROL) 2 MG ta blet [Pharmacy Med Name: Tolterodine Tartrate Oral Tablet 2 MG] Encounter Details Date Type Department Care Team Description 04/21/2020 Refill [facility] Briana Cabrera, Ref ill (tolterodine Practice ARLET (DETROL) 2 MG tablet [address] [facility] [address] [facility] [Pharmacy Med Name: [place], [place] [address] [place], [place] Tolterodine Tartrate [phone] 24186 Oral Tablet 2 MG]) [phone] (Wo rk) Social History Tobacco Use Types [...] DAILY Siomara Ivy RN 04/23/2020, 9:51 AM YEAR STITCHER Interface, Out Comeks Prov Query - 04/21/2020 1:06 PM CST [...] once daily. (changed but equivalent) Powered by EpiSensor, Reference: [id number], 04/21/2020 1:06:27 PM GOODYEAR STITCHER, Pool: AV REFILL RN ([id number]) YEAR STITCHER documented in this encounter Plan of Treatment Not on filedocumented as of this encounter Visit Diagnoses Diagnosis Urinary urgency Urgency of urination documented in this encounter Care Teams Glove Machine Operator Relationship Specialty Start Date End Date Briana Cabrera, PAAshleyC PCP - General Physician Speech Instructor 11/29/19 [address] [place] [address] documented as of this encounter
--- OUTSIDE RECORDS SUMMARY | 2022-02-09 09:04 | XMS_ITS | Encounter Summary ---
:1965 Author Organization [employer] Address [address] [address] Care Team Providers Name Role Phone Briana Vazquez PA-C Primary Care Provider Reason for Visit Reason Onset Date Comments Refill 02/14/2019 diclofenac (VOLTAREN ) 75 MG enteric coated tablet Encounter Details Date Type Department Care Team Description 02/14/2019 Refill [facility] Briana Vazquez, Ref ill (diclofenac Practice ARLET (VOLTAREN) 75 MG enteric [address] [place] [address] coated tablet) [place], [place] [address] [place], [place] [phone] (Wo rk) Social History Tobacco Use Types [...] is now ordered. 1 refill sent [facility] DENTIAL REAL ESTATE SALES MANAGER Jessica Baez RN - 02/15/2019 2:11 PM CST Further Assistance Needed on Refill from Nursing/Triage Please clarify how patient is taking medication. dose increased at [facility] visit. Does he need eval? Next steps: Nursing/Triage to complete refill as appropriate. Requested Prescriptions Pending Prescriptions Disp Refills ??? diclofenac (VOLTAREN) 75 MG enteric coated tablet 180 Tablet 0 Sig: Take 1 Tablet by mouth two times a day. Jessica Baez RN 02/15/2019, 2:11 PM DENTIAL REAL ESTATE SALES MANAGER Interface, Out Surescripts Prov Query - 02/14/2019 [...] 12 months) Last qualifying visit: 07/11/2018 (in [facility]) Next scheduled visit: None Last ordered by LAURO MALLORY L: 12/14/2018 (62 days ago) QTY: 60, Refills: 0, Sig: take 1 tablet bymouth two times a day. (unchanged) Cr: 0.99 mg/dL on 12/14/2018 HGB: 15.1 g/dL on 07/02/2017 HCT: 43.3 % on 09/10/2015 PLT: 256 k/cmm on 09/10/2015 WBC: 7.7 k/cmm on 09/10/2015 Powered by [employer], Reference: [id number], 02/14/2019 1:14:39 PM RESIDENTIAL REAL ESTATE SALES MANAGER, Pool: AV REFILL LAVERN ([id number]) DENTIAL REAL ESTATE SALES MANAGER documented in this encounter Plan of Treatment Not on filedocumented as of this encounter Visit Diagnoses Diagnosis Encounter for medication monitoring - Pr imary Encounter for therapeutic drug monitorin g Right knee pain, unspecified chronicity documented in this encounter Care Teams Heading Repairer Relationship Specialty Start Date End Date Briana Vazquez PA-C PCP - General Physician Snapper On 06/30/17 10/03/19 [address] [place] [address] documented as of this encounter
--- OUTSIDE RECORDS SUMMARY | 2022-02-09 09:04 | XMS_ITS | Encounter Summary ---
:1965 Author Organization [employer] Address [address], [place] [address] Care Team Providers Name Role Phone Briana Cabrera PA-C Primary Care Provider Reason for Visit Reason Comments Refill tolterodine (DETROL) 2 MG ta blet [Pharmacy Med Name: Tolterodine Tartrate Oral Tablet 2 MG]; diclofenac (VO LTAREN) 75 MG enteric coated tablet [Pharmacy Med Name: Diclofenac Sodium Oral Tablet Delayed Release 75 MG] Encounter Details Date Type Department Care Team Description 04/25/2020 Refill [facility] Briana Cabrrea, Ref ill (tolterodine Practice ARLET (DETROL) 2 MG tablet [address] [facility] [address] [facility] [Pharmacy Med Name: [place], [place] [address] [place], [place] Tolterodine Tartrate [phone] 31224 Oral Tablet 2 MG]; [phone] (Wo rk) diclofenac (VOLTAREN) 75 MG enteri [...] DAILY Jessica Baez RN 04/26/2020, 8:18 AM N ASSISTANT Interface, Out Surescripts Prov Query - 04/25/2020 [...] WBC: 7.7 k/cmm on 09/10/2015 Powered by PowerReviews, Reference: [id number], 04/25/2020 9:00:04 AM Hector CENTENO: WYLIE RN ([id number]) tolterodine (DETROL) 2 MG tablet [Pharmacy Med [...] once daily. (changed but equivalent) Powered by PowerReviews, Reference: [id number], 04/25/2020 9:00:04 AM Hector CENTENO: WYLIE RN ([id number]) documented in this encounter Plan of Treatment Not on filedocumented as of this encounter Visit Diagnoses Diagnosis Chronic low back pain Lumbago Right knee pain, unspecified chronicity Urinary urgency Urgency of urination documented in this encounter Care Teams Eco Industrial Development Consultant Relationship Specialty Start Date End Date Briana Cabrera PA-C PCP - General Physician Petal Shaper Hand 11/29/19 [address] [place] [address] documented as of this encounter
--- OUTSIDE RECORDS SUMMARY | 2022-02-09 09:04 | XMS_ITS | Encounter Summary ---
:1965 Author Organization [facility] Address [address], [place] [address] Care Team Providers Name Role Phone Briana Cabrera PA-C Primary Care Provider Reason for Visit Reason Comments Refill diclofenac (VOLTAREN) 75 MG enteric coated tablet [Pharmacy Med Name: Diclofenac Sodium Oral Table t Delayed Release 75 MG] Encounter Details Date Type Department Care Team Description 02/02/2020 Refill [facility] Briana Cabrera, Ref ill (diclofenac Practice ARLET (VOLTAREN) 75 MG enteric [address] [place] [address] coated tablet [Pharmacy [place], [place] [address] [place], [place] Med Name: Diclofenac [phone] Sodium Oral Tablet [phone] (Wo rk) Delayed Release 75 MG]) Social [...] (A recent visit (in Family Practice with DELIICA MARTINEZ) was found) Next scheduled visit: None Last ordered by BRIANA CABRERA: 10/31/2019 (94 days ago) QTY: 180, Refills: 0, Sig: take one tablet by mouth twice daily (unchanged) Cr: 0.99 mg/dL on 12/14/2018 HCT: 43.3 % on 09/10/2015 HGB: 15.1 g/dL on 07/02/2017 PLT: 256 k/cmm on 09/10/2015 WBC: 7.7 k/cmm on 09/10/2015 Powered by MicroInvention, Reference: [id number], 02/02/2020 10:00:57 AM OXYACETYLENE BURNER, Pool: WYLIE RN ([id number]) CETYLENE BURNER documented in this encounter Plan of Treatment Not on filedocumented as of this encounter Visit Diagnoses Diagnosis Encounter for long-term (current) use of medications - Primary Encounter for long-term (current) use of other medications Right knee pain, unspecified chronicity Urinary urgency Urgency of urination documented in this encounter Care Teams Leathersmith Relationship Specialty Start Date End Date Briana Cabrera, PAAshleyC PCP - General Physician Automotive Exhaust Emissions Technician 11/29/19 [address] [place] [address] documented as of this encounter
--- OUTSIDE RECORDS SUMMARY | 2022-02-09 09:04 | XMS_ITS | Encounter Summary ---
:1965 Author Organization [facility] Address [address] [place] [address] Care Team Providers Name Role Phone Briana Cabrera PA-C Primary Care Provider Encounter Details Date Type Department Care Team Description 11/29/2019 Refill [facility] Briana Cabrera PA-C [address] [place] [address] [phone] (Wo rk) Social History Tobacco Use Types [...] or OV Briana Cabrera PA-C Interface, Out GRAVIDI Prov Query - 11/29/2019 2:47 PM CDT [...] times daily (changed but equivalent) Powered by ControlCircle, Reference: [id number], 11/29/2019 2:47:44 PM CDT, Pool: ROB REFFAM PUCKETT ([id number]) documented in this encounter Plan of Treatment Not on filedocumented as of this encounter Visit Diagnoses Diagnosis Chronic low back pain Lumbago Urinary urgency Urgency of urination documented in this encounter Care Teams Gullet Slitter Relationship Specialty Start Date End Date Briana Cabrera PA-C PCP - General Physician Acetylene Operator 11/29/19 [address] [place] [address] documented as of this encounter
--- OUTSIDE RECORDS SUMMARY | 2022-02-09 09:04 | XMS_ITS | Encounter Summary ---
:1965 Author Organization [facility] Address [address] [address] Care Team Providers Name Role Phone Briana Cabrera PA-C Primary Care Provider Reason for Visit Reason Onset Date Comments Refill Refill 01/19/2020 Encounter Details Date Type Department Care Team Description 01/02/2020 Refill [facility] Briana Cabrera PA-C Refill; Refill [address] [facility] [address] [place], [place] [address] [place] [address] [phone] (Wo rk) Social History Tobacco Use Types [...] about medication refill. Pt has moved to [place] and has establish care with a provider down there who will take over medication refills. No further action required. Jhoana Mancera - 01/12/2020 4:54 PM CST Medication Refill - Overdue Visit Called patient, was: Unable to reach patient 2nd call attempted. Clinician will need to review refill request. Letter sent. Jhoana Hoang Please route to: (HP) Care Team Pool/ (PN) Clinician IAL COLLECTIONS LIBRARIAN Padmaja Yepez - 01/04/2020 1:58 PM CDT [...] mouth daily (changed but equivalent) Powered by alooma, Reference: [id number], 01/02/2020 2:07:22 PM CDT, Pool: AV REFILL LAVERN ([id number]) IAL COLLECTIONS LIBRARIAN documented in this encounter Plan of Treatment Not on filedocumented as of this encounter Visit Diagnoses Diagnosis Urinary urgency Urgency of urination documented in this encounter Care Teams Semiconductor Technician Relationship Specialty Start Date End Date Briana Cabrera PA-C PCP - General Physician General Scrap Worker 11/29/19 [address] [place] [address] documented as of this encounter
--- OUTSIDE RECORDS SUMMARY | 2022-02-09 09:04 | XMS_ITS | Encounter Summary ---
:1965 Author Organization [facility] Address [address] [address] Care Team Providers Name Role Phone Briana Cabrera PA-C Primary Care Provider Reason for Visit Reason Comments Refill gabapentin (NEURONTIN) 600 M G tablet [Pharmacy Med Name: Gabapentin Oral Tablet 600 MG] Encounter Details Date Type Department Care Team Description 04/25/2020 Refill [facility] Briana Cabrera, Ref ill (gabapentin Practice ARLET (NEURONTIN) 600 MG [address] [place] [address] tablet [Pharmacy Med [place], [place] [address] [place], [place] Name: Gabapentin Oral [phone] Tablet 600 MG]) [phone] (Wo rk) Social History Tobacco Use Types [...] to: (HP) Care Team Pool/ (PN) Clinician LUTION EXPERT Alison Page - 04/25/2020 3:42 PM CST Medication Refill - Overdue Visit Called patient, was: Unable to reach patient 1st call attempted. Left message to call back. Alison Page LUTION EXPERT Briana Cabrera PA-C - 04/25/2020 9:53 AM CST Please let him know he needs to be seen to continue his prescriptions. Briana Cabrera PA-C LUTION EXPERT Interface, Out Surescripts Prov Query - 04/25/2020 [...] mouth three times daily (unchanged) Powered by [employer]a [employer], Reference: [id number], 04/25/2020 9:00:04 AM Hector CENTENO: WYLIE RN ([id number]) documented in this encounter Plan of Treatment Not on filedocumented as of this encounter Visit Diagnoses Not on filedocumented in this encounter Care Teams Store Clerk Cashier Relationship Specialty Start Date End Date Briana Cabrera PA-C PCP - General Physician Maintenance Shop Clerk 11/29/19 [address] [place] [address] documented as of this encounter
--- OUTSIDE RECORDS SUMMARY | 2022-02-09 09:04 | XMS_ITS | Encounter Summary ---
:1965 Author Organization [facility] Address [address], [place] [address] Care Team Providers Name Role Phone Found, No Pcp MD Primary Care Provider Unavailable Reason for Visit Reason Comments Refill diclofenac (VOLTAREN) 75 MG enteric coated tablet [Pharmacy Med Name: Diclofenac Sodium Oral Table t Delayed Release 75 MG] Encounter Details Date Type Department Care Team Description 10/27/2019 Refill [facility] Briana Cabrera, Ref ill (diclofenac Practice PA-C (VOLTAREN) 75 MG enteric [address] [place] [address] coated tablet [Pharmacy [place], [place] [address] [place], [place] Med Name: Diclofenac [phone] Sodium Oral Tablet [phone] (Wo rk) Delayed Release 75 MG]) Social [...] 10/31/2019 12:09 PM CDT Will route to [facility] to review Jhoana Hoang 10/31/2019, 12:10 PM Lisa Carnes RN - 10/27/2019 4:56 PM CDT No assigned PCP, will route to clinical laboratory technologist to assign PCP then route to clinician [...] WBC: 7.7 k/cmm on 09/10/2015 Powered by [employer], Reference: [id number], 10/27/2019 10:31:07 AM CDT, Pool: WYLIE RN ([id number]) documented in this encounter Plan of Treatment Not on filedocumented as of this encounter Visit Diagnoses Diagnosis Right knee pain, unspecified chronicity documented in this encounter Care Teams Painter Set Relationship Specialty Start Date End Date Found, No Pcp, PCP - General 10/04/19 11/28/19 [address] [place] [address] documented as of this encounter
--- OUTSIDE RECORDS SUMMARY | 2022-02-09 09:04 | XMS_ITS | Encounter Summary ---
:1965 Author Organization [facility] Address [address] [address] Care Team Providers Name Role Phone Briana Vazquez PA-C Primary Care Provider Reason for Visit Reason Onset Date Comments Refill 08/03/2019 atorvastatin (LIPITO R) 20 MG tablet Encounter Details Date Type Department Care Team Description 08/03/2019 Refill [facility] Briana Vazquez, Ref ill (atorvastatin Practice ARLET (LIPITOR) 20 MG tablet) [address] [facility] [address] [place], [place] [address] [place], [place] [phone] (Wo rk) Social History Tobacco Use Types [...] 1 tablet bymouth daily. (unchanged) Powered by NextUser, Reference: [id number], 08/03/2019 11:02:46 AM CDT, Pool: ROB REFILL RN ([id number]) documented in this encounter Plan of Treatment Not on filedocumented as of this encounter Visit Diagnoses Diagnosis Hyperlipidemia with target LDL less than 130 (HRC) Other and unspecified hyperlipidemia documented in this encounter Care Teams Sliver Lapper Relationship Specialty Start Date End Date Briana Vazquez PA-C PCP - General Physician Foot Press Operator 06/30/17 10/03/19 [address] [place] [address] documented as of this encounter
--- OUTSIDE RECORDS SUMMARY | 2022-02-09 09:04 | XMS_ITS | Encounter Summary ---
:1965 Author Organization [facility] Address [address] [address] Care Team Providers Name Role Phone Briana Cabrera PA-C Primary Care Provider Reason for Visit Reason Comments Refill tolterodine (DETROL) 2 MG ta blet [Pharmacy Med Name: Tolterodine Tartrate Oral Tablet 2 MG] Encounter Details Date Type Department Care Team Description 08/28/2019 Refill [facility] Briana Cabrera, Ref ill (tolterodine Practice ARLET (DETROL) 2 MG tablet [address] [facility] [address] [Pharmacy Med Name: [place], [place] [address] [place], [place] Tolterodine Tartrate [phone] Oral Tablet 2 MG]) [phone] (Wo rk) Social History Tobacco Use Types [...] mouth daily (changed but equivalent) Powered by to be, Reference: [id number], 08/28/2019 10:41:56 AM CDT, Pool: ROB REFILL RN ([id number]) documented in this encounter Plan of Treatment Not on filedocumented as of this encounter Visit Diagnoses Diagnosis Urinary urgency Urgency of urination documented in this encounter Care Teams Returning Officer Relationship Specialty Start Date End Date Briana Cabrera PA-C PCP - General Physician Material Reclaimer 06/30/17 10/03/19 [address] [place] [address] documented as of this encounter
--- OUTSIDE RECORDS SUMMARY | 2022-02-09 09:04 | XMS_ITS | Encounter Summary ---
:1965 Author Organization [facility] Address [address], [place] [address] Care Team Providers Name Role Phone Briana Cabrera PA-C Primary Care Provider Reason for Visit Reason Comments Refill tolterodine (DETROL) 2 MG ta blet [Pharmacy Med Name: Tolterodine Tartrate Oral Tablet 2 MG]; omeprazole (DC ILOSEC) 20 MG capsule [Pharmacy Med Name: Omeprazole Oral Capsule Amanda yed Release 20 MG] Encounter Details Date Type Department Care Team Description 03/03/[address] [facility] Briana Cabrera, Ref ill (tolterodine Practice ARLET (DETROL) 2 MG tablet [address] [facility] [address] [facility] [Pharmacy Med Name: [place], [place] [address] [place], [place] Tolterodine Tartrate [phone] Oral Tablet 2 MG]; [phone] (Wo rk) omeprazole (PRILOSEC) 20 MG capsul [...] MOUTH DAILY ONE HOUR BEFORE A MEAL WORKER HEAD Interface, Out Surescripts Prov Query - 03/03/2020 [...] hour before a meal (unchanged) Powered by Traxpay, Reference: [id number], 03/03/2020 10:48:44 AM Hector CENTENO: WYLIE RN ([id number]) tolterodine (DETROL) 2 MG tablet [Pharmacy Med Name: Tolterodine Tartrate Oral Tablet 2 MG] Miscellaneous - 12 Month Visit -> A qualifying visit was not found within the last 2 years. Last qualifying visit: None (A recent visit (in Family Practice with DELICIA MARTINEZ) was found) Next scheduled visit: None Last ordered by BRIANA CABRREA M: 02/08/2020 (24 days ago) QTY: 60, Refills: 0, Sig: take two tablets by mouth daily (changed but equivalent) Powered by Traxpay, Reference: [id number], 03/03/2020 10:48:44 AM JACOBO, Pool: WYLIE RN ([id number]) WORKER HEAD documented in this encounter Plan of Treatment Not on filedocumented as of this encounter Visit Diagnoses Diagnosis Urinary urgency Urgency of urination documented in this encounter Care Teams Nuclear Instructor Relationship Specialty Start Date End Date Briana Cabrera PA-C PCP - General Physician Chicken Handler 11/29/19 [address] [place] [address] documented as of this encounter
--- OUTSIDE RECORDS SUMMARY | 2022-02-09 09:04 | XMS_ITS | Encounter Summary ---
:1965 Author Organization [facility] Address [address] [address] Care Team Providers Name Role Phone Briana Cabrera PA-C Primary Care Provider Reason for Visit Reason Comments Refill tolterodine (DETROL) 2 MG ta blet [Pharmacy Med Name: Tolterodine Tartrate Oral Tablet 2 MG]; diclofenac (VO LTAREN) 75 MG enteric coated tablet [Pharmacy Med Name: Diclofenac Sodium Oral Tablet Delayed Release 75 MG] Encounter Details Date Type Department Care Team Description 03/29/2020 Refill [facility] Briana Cabrera, Ref ill (tolterodine Practice ARLET (DETROL) 2 MG tablet [address] [facility] [address] [facility] [Pharmacy Med Name: [place], [place] [address] [place], [place] Tolterodine Tartrate [phone] Oral Tablet 2 MG]; [phone] (Wo rk) diclofenac (VOLTAREN) 75 MG enteri [...] DAILY Jessica Baez RN 04/01/2020, 11:46 AM ADMINISTRATOR Interface, Out Surescripts Prov Query - 03/29/2020 [...] WBC: 7.7 k/cmm on 09/10/2015 Powered by SmartFlow Technologies, Reference: [id number], 03/29/2020 1:53:58 PM Hector CENTENO: WYLIE RN ([id number]) tolterodine (DETROL) 2 MG tablet [Pharmacy Med [...] once daily. (changed but equivalent) Powered by SmartFlow [employer], Reference: [id number], 03/29/2020 1:53:58 PM Hector CENTENO: WYLIE RN ([id number]) ADMINISTRATOR documented in this encounter Plan of Treatment Not on filedocumented as of this encounter Visit Diagnoses Diagnosis Urinary urgency Urgency of urination Chronic low back pain Lumbago Right knee pain, unspecified chronicity documented in this encounter Care Teams Axle Turner Relationship Specialty Start Date End Date Briana Cabrera PA-C PCP - General Physician Supervisor Cell Efficiency 11/29/19 [address] [place] [address] documented as of this encounter
--- OUTSIDE RECORDS SUMMARY | 2022-02-09 09:04 | XMS_ITS | Encounter Summary ---
:1965 Author Organization [facility] Address [address], [place] [address] Care Team Providers Name Role Phone Briana Cabrera PA-C Primary Care Provider Reason for Visit Reason Comments Refill omeprazole (PRILOSEC) 20 MG capsule [Pharmacy Med Name: OMEPRAZOLE 20MG CAPSULES] Encounter Details Date Type Department Care Team Description 07/05/2020 Refill [facility] Briana Cabrera, Ref ill (omeprazole Practice ARLET (PRILOSEC) 20 MG capsule [address] [facility] [address] [Pharmacy Med Name: [place], [place] [address] [place], [place] OMEPRAZOLE 20MG [phone] [address]]) [phone] (Wo rk) Social History Tobacco Use Types [...] Rosas RN 07/05/2020 6:30 PM Interface, Out SaleStream Query - 07/05/2020 11:52 AM CDT omeprazole [...] a meal (changed but equivalent) Powered by Customer.[employer] by [employer], Reference: [id number], 07/05/2020 11:52:11 AM CDT, Pool: WYLIE RN ([id number]) documented in this encounter Plan of Treatment Not on filedocumented as of this encounter Visit Diagnoses Not on filedocumented in this encounter Care Teams Compress Engineer Relationship Specialty Start Date End Date Briana Cabrera PA-C PCP - General Physician Marketing Strategy Manager 11/29/19 [address] [place] [address] documented as of this encounter
--- OUTSIDE RECORDS SUMMARY | 2022-02-09 09:04 | XMS_ITS | Encounter Summary ---
:1965 Author Organization [facility] Address [address] [address] Care Team Providers Name Role Phone Briana Cabrera PA-C Primary Care Provider Reason for Visit Reason Onset Date Comments Refill 09/06/2019 lisinopril (ZESTRIL) 10 MG tablet Encounter Details Date Type Department Care Team Description 09/06/2019 Refill [facility] Briana Cabrera, Ref ill (lisinopril Practice ARLET (ZESTRIL) 10 MG tablet) [address] [facility] [address] [place] [address] [address] [place], [place] [phone] (Wo rk) Social History Tobacco Use Types [...] CDT Further Assistance Needed on Refill from Restaurant Greeter Patient is overdue for Office visit. Please [...] K: 4 mEq/L on 12/14/2018 Powered by Connesta, Reference: [id number], 09/06/2019 9:13:48 AM CDT, Hector: WYLIE RN ([id number]) documented in this encounter Plan of Treatment Not on filedocumented as of this encounter Visit Diagnoses Diagnosis Essential hypertension (HRC) Unspecified essential hypertension documented in this encounter Care Teams Equipment Coordinator Relationship Specialty Start Date End Date Briana Cabrera PA-C PCP - General Physician General Claims Agent 06/30/17 10/03/19 [address] [place] [address] documented as of this encounter
--- OUTSIDE RECORDS SUMMARY | 2022-02-09 09:04 | XMS_ITS | Encounter Summary ---
:1965 Author Organization [facility] Address [address], [place] [address] Care Team Providers Name Role Phone Briana Cabrera PA-C Primary Care Provider Reason for Visit Reason Comments Refill gabapentin (NEURONTIN) 600 M G tablet [Pharmacy Med Name: Gabapentin Oral Tablet 600 MG] Encounter Details Date Type Department Care Team Description 08/28/[address] [facility] Briana Cabrera, Ref ill (gabapentin Practice ARLET (NEURONTIN) 600 MG [address] [place] [address] tablet [Pharmacy Med [place], [place] [address] [place], [place] Name: Gabapentin Oral [phone] 41439 Tablet 600 MG]) [phone] (Wo rk) Social History Tobacco Use Types [...] times daily (changed but equivalent) Powered by mangofizz jobs, Reference: [id number], 08/28/2019 10:41:56 AM CDT, Pool: WYLIE RN ([id number]) documented in this encounter Plan of Treatment Not on filedocumented as of this encounter Visit Diagnoses Diagnosis Urinary urgency Urgency of urination Chronic low back pain Lumbago documented in this encounter Care Teams Animal Pathologist Relationship Specialty Start Date End Date Briana Cabrera PA-C PCP - General Physician Customer Assistant 06/30/17 10/03/19 [address] [place] [address] documented as of this encounter
--- OUTSIDE RECORDS SUMMARY | 2022-02-09 09:04 | XMS_ITS | Encounter Summary ---
:1965 Author Organization [facility] Address [address] [address] Care Team Providers Name Role Phone Briana Cabrera PA-C Primary Care Provider Reason for Visit Reason Comments Refill tolterodine (DETROL) 2 MG ta blet [Pharmacy Med Name: Tolterodine Tartrate Oral Tablet 2 MG] Encounter Details Date Type Department Care Team Description 02/02/2020 [address]ill [facility] Briana Cabrera, Ref ill (tolterodine Practice ARLET (DETROL) 2 MG tablet [address] [facility] [address] [Pharmacy Med Name: [place], [place] [address] [place], [place] Tolterodine Tartrate [phone] 53147 Oral Tablet 2 MG]) [phone] (Wo rk) Social History Tobacco Use Types [...] call attempted. Letter sent Maria M Yanez ITAL FELLOW Alison Page - 02/06/2020 11:47 AM CST Medication Refill - Overdue Visit Called patient, was: Unable to reach patient 1st call attempted. Left message to call back. Alison Page Malia Elaine RN - 02/05/2020 9:09 AM CST Further Assistance Needed on Refill from Lobster Catcher Patient is overdue for Office visit. Please [...] DAILY Malia Correia RN 02/05/2020, 9:09 AM ITAL FELLOW Uvaldo, Out Surescripts Prov Query - 02/02/2020 [...] once daily. (changed but equivalent) Powered by Platypus TV, Reference: [id number], 02/02/2020 10:00:57 AM Hector CENTENO: AV DIOMEDES PUCKETT ([id number]) ITAL FELLOW documented in this encounter Plan of Treatment Not on filedocumented as of this encounter Visit Diagnoses Diagnosis Urinary urgency Urgency of urination documented in this encounter Care Teams Capability Lead Relationship Specialty Start Date End Date Briana Cabrera PA-C PCP - General Physician Clean Room Operator 11/29/19 [address] [place] [address] documented as of this encounter
--- OUTSIDE RECORDS SUMMARY | 2022-02-09 09:04 | XMS_ITS | Encounter Summary ---
:1965 Author Organization [facility] Address [address] [address] Care Team Providers Name Role Phone Briana Cabrera PA-C Primary Care Provider Reason for Visit Reason Comments Refill tolterodine (DETROL) 2 MG ta blet [Pharmacy Med Name: Tolterodine Tartrate Oral Tablet 2 MG] Encounter Details Date Type Department Care Team Description 11/29/2019 Refill [facility] Briana Cabrera, Ref ill (tolterodine Practice ARLET (DETROL) 2 MG tablet [address] [facility] [address] [Pharmacy Med Name: [place], [place] [address] [place], [place] Tolterodine Tartrate [phone] 06252 Oral Tablet 2 MG]) [phone] (Wo rk) Social History Tobacco Use Types [...] mouth daily (changed but equivalent) Powered by Affinity.is, Reference: [id number], 11/29/2019 2:47:44 PM CDT, Pool: AV REFILL RN ([id number]) Electronically signed by Interface, Out [employer] Prov Query at 01/08/2020 9:20 PM HEAD TURNING MACHINE OPERATOR documented in this encounter Plan of Treatment Not on filedocumented as of this encounter Visit Diagnoses Diagnosis Urinary urgency Urgency of urination documented in this encounter Care Teams Rfid Manager Relationship Specialty Start Date End Date Briana Cabrera PA-C PCP - General Physician Major Gifts Manager 11/29/19 [address] [place] [address] documented as of this encounter
--- OUTSIDE RECORDS SUMMARY | 2022-02-09 09:04 | XMS_ITS | Encounter Summary ---
:1965 Author Organization [facility] Address [address] [place] [address] Care Team Providers Name Role Phone Briana Vazquez PA-C Primary Care Provider Reason for Visit Reason Comments Refill Encounter Details Date Type Department Care Team Description 02/09/2019 Refill [facility] Syeda Baker PA-C Refill [address] [address] [place], [place] [address] (Wo rk) Social History Tobacco Use Types [...] CST No refills authorized through Urgent Care S MANAGER documented in this encounter Plan of Treatment Not on filedocumented as of this encounter Visit Diagnoses Diagnosis Right knee pain, unspecified chronicity documented in this encounter Care Teams Petroleum Refining Equipment Operator Relationship Specialty Start Date End Date Briana Vazquez PA-C PCP - General Physician Sde 06/30/17 10/03/19 [address] [place] [address] documented as of this encounter
--- OUTSIDE RECORDS SUMMARY | 2022-02-09 09:04 | XMS_ITS | Encounter Summary ---
:1965 Author Organization [facility] Address [address] [place] [address] Care Team Providers Name Role Phone Briana Vazquez PA-C Primary Care Provider Reason for Visit Reason Comments Refill Encounter Details Date Type Department Care Team Description 02/08/2019 Refill [facility] Syeda Baker PA-C Refill [address] [address] [place] [address] [phone] (Wo rk) Social History Tobacco Use Types [...] to refill this request through urgent care. ND COOK AND BAKER documented in this encounter Plan of Treatment Not on filedocumented as of this encounter Visit Diagnoses Diagnosis Right knee pain, unspecified chronicity documented in this encounter Care Teams Terminal Operations Manager Relationship Specialty Start Date End Date Briana Vazquez PA-C PCP - General Physician Master Rigger 06/30/17 10/03/19 [address] [place] [address] documented as of this encounter
--- OUTSIDE RECORDS SUMMARY | 2022-02-09 09:04 | XMS_ITS | Encounter Summary ---
:1965 Author Organization [facility] Address [address], [place] [address] Care Team Providers Name Role Phone Briana Cabrera PA-C Primary Care Provider Reason for Visit Reason Comments Refill gabapentin (NEURONTIN) 600 M G tablet [Pharmacy Med Name: Gabapentin Oral Tablet 600 MG] Encounter Details Date Type Department Care Team Description 03/03/2020 Refill [facility] Briana Cabrera, Ref ill (gabapentin Practice ARLET (NEURONTIN) 600 MG [address] [place] [address] [Pharmacy Med [place], [place] [address] [place], [place] Name: Gabapentin Oral [phone] Tablet 600 MG]) [phone] (Wo rk) Social History Tobacco Use Types [...] mouth three times daily (unchanged) Powered by ElectroCore, Reference: [id number], 03/03/2020 10:48:44 AM GRIPPER MACHINE OPERATOR, Pool: ROB REFILL RN ([id number]) PER MACHINE OPERATOR documented in this encounter Plan of Treatment Not on filedocumented as of this encounter Visit Diagnoses Diagnosis Chronic low back pain Lumbago documented in this encounter Care Teams Gmat Instructor Relationship Specialty Start Date End Date Briana Cabrera PA-C PCP - General Physician Retention Representative 11/29/19 [address] [place] [address] documented as of this encounter
--- OUTSIDE RECORDS SUMMARY | 2022-02-09 09:04 | XMS_ITS | Encounter Summary ---
:1965 Author Organization [facility] Address [address] [address] Care Team Providers Name Role Phone Briana Cabrera PA-C Primary Care Provider Reason for Visit Reason Comments Refill tolterodine (DETROL) 2 MG ta blet [Pharmacy Med Name: Tolterodine Tartrate Oral Tablet 2 MG] Encounter Details Date Type Department Care Team Description 03/29/2020 Refill [facility] Briana Cabrera, Ref ill (tolterodine Practice ARLET (DETROL) 2 MG tablet 14473 [facility] [address] [facility] [Pharmacy Med Name: [place], [place] [address] [place], [place] Tolterodine Tartrate [phone] 78323 Oral Tablet 2 MG]) [phone] (Wo rk) Social History Tobacco Use Types [...] DAILY Malia Correia RN 04/01/2020, 10:22 AM ER SHEAR OPERATOR Interface, Out Hermes [employer] Prov Query - 03/29/2020 1:54 PM CST [...] once daily. (changed but equivalent) Powered by Cretia's Creations, Reference: [id number], 03/29/2020 1:53:58 PM HELPER SHEAR OPERATOR, Pool: WYLIE RN ([id number]) ER SHEAR OPERATOR documented in this encounter Plan of Treatment Not on filedocumented as of this encounter Visit Diagnoses Not on filedocumented in this encounter Care Teams Engagement Executive Relationship Specialty Start Date End Date Briana Cabrera, PAAshleyC PCP - General Physician Biodiesel Production Associate 11/29/19 [address] [place] [address] documented as of this encounter
--- OUTSIDE RECORDS SUMMARY | 2022-02-09 09:04 | XMS_ITS | Encounter Summary ---
:1965 Author Organization [facility] Address [address] [address] Care Team Providers Name Role Phone Briana Cabrera PA-C Primary Care Provider Reason for Visit Reason Comments Refill omeprazole (PRILOSEC) 20 MG capsule [Pharmacy Med Name: Omeprazole Oral Capsule Delayed Release 20 M G] Encounter Details Date Type Department Care Team Description 06/29/2019 Refill [facility] Briana Cabrera, Ref ill (omeprazole Practice ARLET (PRILOSEC) 20 MG capsule [address] [facility] [address] [Pharmacy Med Name: [place], [place] [address] [place], [place] Omeprazole Oral Capsule [phone] 09893 Delayed Release 20 MG]) [phone] (Wo rk) Social History Tobacco Use Types [...] If you want the patient to pay [id number] 1. Click ePA Assistance Quick Action to [...] If you want the patient to pay [id number] 1. Click ePA Assistance Quick Action to document 2. Select Out of Pocket option 3. Flag or Route to: your department's designated pool Hedii Espino CMA Loly Felton RN - 06/30/2019 1:20 PM CDT Per standing order Loly Felton RN Interface, Out Air Button Query - 06/29/2019 7:07 PM CDT omeprazole (PRILOSEC) 20 MG capsule [Pharmacy Med Name: Omeprazole Oral Capsule Delayed Release 20 MG] Miscellaneous - 12 Month Visit -> Refill x 3 months (until due for an office visit) Last qualifying visit: 07/11/2018 (in [facility]) Next scheduled visit: None Last ordered by BRIANA CABRERA M: 01/10/2019 (170 days ago) QTY: 90, Refills: 1, Sig: take 1 capsuleby mouth daily. take 1 hour before a meal. (changed but equivalent) Powered by Axeda, Reference: [id number], 06/29/2019 7:07:39 PM CDT, Pool: WYLIE RN ([id number]) documented in this encounter Plan of Treatment Not on filedocumented as of this encounter Visit Diagnoses Not on filedocumented in this encounter Care Teams Business Manager Relationship Specialty Start Date End Date Briana Cabrera PA-C PCP - General Physician Commercial Specialist 06/30/17 10/03/19 [address] [place] [address] documented as of this encounter
--- OUTSIDE RECORDS SUMMARY | 2022-02-09 09:04 | XMS_ITS | Encounter Summary ---
:1965 Author Organization [facility] Address [address] [place] [address] Care Team Providers Name Role Phone Briana Vazquez PA-C Primary Care Provider Reason for Visit Reason Comments Refill Encounter Details Date Type Department Care Team Description 01/17/2019 Refill [facility] Syeda Baker PA-C Refill [address] [place] [address] [phone] (Wo rk) Social History Tobacco Use Types [...] to refill this request through urgent care. CTION NURSE documented in this encounter Plan of Treatment Not on filedocumented as of this encounter Visit Diagnoses Diagnosis Right knee pain, unspecified chronicity documented in this encounter Care Teams Business Ethics Professor Relationship Specialty Start Date End Date Briana Vazquez PA-C PCP - General Physician Trim Master Operator 06/30/17 10/03/19 [address] [place] [address] documented as of this encounter
--- OUTSIDE RECORDS SUMMARY | 2022-02-09 09:04 | XMS_ITS | Clinical Summary ---
:1965 Author Organization [facility] Address [address] [address] Care Team Providers Name Role Phone Briana [...] for each transition of care or referral. [facility] Allergies No known active allergies Medications Medication [...] 09/11/2015 Overview: Psychiatrist is Coretta Hawkins at [facility] although does video calls with her Alcohol-induced [...] CDT Respiratory Rate 20 05/09/2018 10:03 AM HATCH TENDER Oxygen Saturation 97% 12/14/2018 2:24 PM CDT [...] e / Group Dates JULIO FRANCE JULIO IOWA [id number] 2018-Pre PO BOX Med icaid sent [id number] CO SERVICE DESK [employer]ENT [place] [address] [facility] [id number] 2018-Pres Medicaid DENTAL PLAN ADULT DENTAL ent Advance Directives Latest Code Status on File Code Status Date Activated Date Inactivated Comments Full Code 09/11/2015 5:39 PM 09/18/2015 2:12 PM Care Teams Video Presentation Operator Relationship Specialty Start Date End Date Briana Vazquez PA-C PCP - General Physician Dental Tech 11/29/19 [address] [place] [address]
--- OUTSIDE RECORDS SUMMARY | 2022-02-09 09:04 | XMS_ITS | Clinical Summary ---
:1965 Author Organization [facility] [place] [address] Care Team Providers Name Role Phone Ángel Massey MD Primary Care Provider [phone] Allergies No known active allergies Medications [...] Comments Depression screening for age 12+ 1977 HIV for age 15-65 1980 Hepatitis C screening for age 1012/09/1983 18-79 [...] 05/09/2018, 50+ Medical Devices Implanted Type Area Ball Sorter Device Shelf Model / Identifier Expiration Date Ser ial / Lot Plate Cerv 2lvl 45mm Lowman Vision Elite Ant - [id number] Spine Medtronic [id number] / Implanted: Qty: 1 on 09/07/2019 by Dane Guzman MD at [facility] Spine/Ortho / Results Not on filefrom Last 3 Months Insurance Payer Benefit Plan / Subscriber ID Effective Dates Phone Addre ss Type Group WC WORKERS WC WORKERS COMP [id number] Effective for [id number] [address] all dates [id number] [place] [address] UCARE MR UCARE MEDICARE [id number] 2020-Presen [address] [place] [address] [place] [id number] 2018-Prese [address] [place] [address] JennyNicanor E Workers Comp Self 1965 [address] (Home) [place], [place] [phone] (Work) [facility]ES [facility] [id number] [place] [facility] (Home) W [phone] Nik SEARS (Work) [id number] [employer] Employer 03/08/2000 [employer] [facility] (Home) DEPT [id number] David Agosto [phone] (Work) [place]ANK [id number] Advance Directives Latest Code Status on File Code Status Date Activated Date Inactivated Comments Full Code 09/07/2019 1:53 PM 09/08/2019 2:27 PM Code Status Discussion: Not Discussed Per Advance Care Plan Full Code 09/07/2019 6:00 AM 09/07/2019 1:53 PM Code Status Discussion: Not Discussed Per Advance Care Plan Full Code 09/24/2015 1:25 PM 10/07/2015 2:42 PM Care Teams Trust Officer Relationship Specialty Start Date End Date Ángel Massey MD PCP - General Family Practice 06/26/191999 [place] [address]
--- OUTSIDE RECORDS SUMMARY | 2022-02-09 09:04 | XMS_ITS | Encounter Summary ---
:1965 Author Organization [facility] Address [address] [address] Care Team Providers Name Role Phone Briana Cabrera PA-C Primary Care Provider Reason for Visit Reason Comments Refill diclofenac (VOLTAREN) 75 MG enteric coated tablet [Pharmacy Med Name: Diclofenac Sodium Oral Table t Delayed Release 75 MG] Encounter Details Date Type Department Care Team Description 03/03/2020 Refill [facility] Briana Cabrera, Ref ill (diclofenac Practice ARLET (VOLTAREN) 75 MG enteric [address] coated tablet [Pharmacy [place], [place] [address] [place], [place] Med Name: Diclofenac [phone] Sodium Oral Tablet [phone] (Wo rk) Delayed Release 75 MG]) Social [...] DAILY Siomara Ivy RN 03/05/2020, 2:19 PM ED FRAMES ASSEMBLER Interface, Out Surescripts Prov Query - 03/03/2020 [...] WBC: 7.7 k/cmm on 09/10/2015 Powered by Crowd Fusion, Reference: [id number], 03/03/2020 10:48:44 AM Hector CENTENO: WYLIE RN ([id number]) ED FRAMES ASSEMBLER documented in this encounter Plan of Treatment Not on filedocumented as of this encounter Visit Diagnoses Diagnosis Urinary urgency Urgency of urination Right knee pain, unspecified chronicity Chronic low back pain Lumbago documented in this encounter Care Teams Crystal Machining Coordinator Relationship Specialty Start Date End Date Briana Cabrera PA-C PCP - General Physician Sales Promotion Coordinator 11/29/19 [address] [place] [address] documented as of this encounter
--- OUTSIDE RECORDS SUMMARY | 2022-02-09 09:05 | XMS_ITS | Encounter Summary ---
:1965 Author Organization [facility] Address [address] [place] [address] Care Team Providers Name Role Phone Briana Vazquez PA-C Primary Care Provider Reason for Referral Procedure/Equipment (Routine) - Incomplete Specialty Diagnoses / Procedures Referred By Contact Refer red To Contact Diagnoses Right knee pain, unspecified chronicity Megan Turner, Procedures MR Knee Rt WO IV Cont [address] [place] [address] [place], [place] [address] Referral ID Status Reason Start Date Expiration Date Visits V isits Requested Authorized [id number] Incomplete 12/27/2018 03/27/2020 1 1 Procedure/Equipment (Routine) - Incomplete Specialty Diagnoses / Procedures Referred By Contact Refer red To Contact Diagnoses Right knee pain, unspecified chronicity Megan Turner, Procedures XR Knee Lt 1-[address] Views [address] [place] [address] [facility] [place] [address] Referral ID Status Reason Start Date Expiration Date Visits V isits Requested Authorized [id number] Incomplete 12/27/2018 03/27/2020 1 1 Procedure/Equipment (Routine) - Incomplete Specialty Diagnoses / Procedures Referred By Contact Refer red To Contact Diagnoses Right knee pain, unspecified chronicity Megan Turner, Procedures XR Knee Rt 3 Views [address] [facility] [place], [place] [address] Referral ID Status Reason Start Date Expiration Date Visits V isits Requested Authorized [id number] Incomplete 12/27/2018 03/27/2020 1 1 Reason for Visit Reason Comments Knee Pain or Injury Consult/Transfer Care (Routine) - Closed Specialty Diagnoses / Procedures Referred By Contact Refer red To Contact Diagnoses Right knee pain, unspecified chronicity Syeda Baker PA-C [address] [place], [place] [address] Referral ID Status Reason Start Date Expiration Date Visits Requ ested Visits Authorized [id number] Closed 12/14/2018 03/14/2020 1 1 Encounter Details Date Type Department Care Team Description 12/27/2018 Office Visit [facility] Megan Turner Right knee pain, CENTER MD Jeferson unspecified [address] [facility] [address] [facility] chronicity (Primary [place], [place] [address] [place], [place] Dx) [phone] (Wo rk) Social History Tobacco Use Types [...] 12:00 PM CDT NAME: GRACIE GUERRA MR#: [id number] CSN: [id number] AUTHENTICATING CLINICIAN: Megan Turner MD CONFIRM #: [...] ALLERGIES: None. 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 He denies drug, tobacco, and alcohol use. [...] chronicity documented in this encounter Care Teams Chemical Dependency Professional Relationship Specialty Start Date End Date Briana Vazquez PA-C PCP - General Physician Settlement Agent 06/30/17 10/03/19 [address] [place] [address] documented as of this encounter
--- OUTSIDE RECORDS SUMMARY | 2022-02-09 09:05 | XMS_ITS | Encounter Summary ---
:1965 Author Organization [facility] Address [address], [place] [address] Care Team Providers Name Role Phone Briana Vazquez PA-C Primary Care Provider Reason for Referral (Routine) - Closed Specialty Diagnoses / Procedures Referred By Contact Refer red To Contact Diagnoses Trigger finger of right hand, unspecified finger Megan Turner, Procedures Triamcinolone Acet Inj Nos: (per 10 mg) [address] [facility] [address] [place], [place] [address] Referral ID Status Reason Start Date Expiration Date Visits Requ ested Visits Authorized [id number] Closed 01/10/2019 04/10/2020 1 1 OR SUPPLIER QUALITY ENGINEER Reason for Visit Reason Comments Finger Pain Encounter Details Date Type Department Care Team Description 01/10/2019 Office Visit [facility] Megan Bhagat r finger of LONG BARN MD Jeferson right hand, [address] [facility] [address] [place] [address] unspecified finger [place], [place] [address] [place], [place] (Primary Dx) [phone] (Wo rk) Social History Tobacco Use Types [...] MD Sports Medicine & Pediatric Sports Medicine Telescope Operator: Renetta Valderrama Please contact Renetta for all administrative questions at [phone] Crm Functional Analyst: Jessica ATC Please contact Jessica for all medical questions at [phone] Medication Requests: Prescriptions are not filled on Weekends or on Weekdays after 3:00PM For all medication refills: Request a refill using Smart Mocha or contact your Pharmacy The right finger was injected with Kenalog-40 and lidocaine. Avoid Strenuous Activity for the remainder of the day and avoid activities that cause pain for one to two weeks following the injection. Signs and Symptoms to watch for: If you have any redness, warmth or increasing pain at the site of the injection or develop a fever, please call [phone] OR SUPPLIER QUALITY ENGINEER documented in this encounter Progress Notes Megan Turner MD - 01/10/2019 12:00 PM CST NAME: GRACIE GUERRA MR#: [id number] CSN: [id number] AUTHENTICATING CLINICIAN: Megan Turner MD CONFIRM #: [...] up p.r.n. HLB:MEDParas C: R:01/10/19 17:04 CONFIRM#:[id number] OR SUPPLIER QUALITY ENGINEER documented in this encounter Plan of Treatment Not on filedocumented as of this encounter Visit Diagnoses Diagnosis Trigger finger of right hand, unspecifie d finger - Primary documented in this encounter Care Teams Chocolate Production Machine Operator Relationship Specialty Start Date End Date Briana Vazquez PA-C PCP - General Physician Four Slide Operator 06/30/17 10/03/19 [address] [place] [address] documented as of this encounter
--- OUTSIDE RECORDS SUMMARY | 2022-02-09 09:05 | XMS_ITS | Encounter Summary ---
:1965 Author Organization [facility] Address [address], [place] [address] Care Team Providers Name Role Phone Briana Vazquez PA-C Primary Care Provider Reason for Visit Reason Onset Date Comments ERRONEOUS ENTRY 07/01/2018 Encounter Details Date Type Department Care Team Description 06/30/2018 Notes/Orders [facility], ERRONEOUS ENTRY Laboratory Coretta Baugh APRN, (Primary Dx) [address] [place], [place] [address] [address] [facility] [phone] [place] [address] Social History Tobacco Use Types Packs/Day Years [...] Primary documented in this encounter Care Teams Laundry Assistant Relationship Specialty Start Date End Date Briana Vazquez PA-C PCP - General Physician Electronic Field Service Engineer 06/30/17 10/03/19 [address] [place] [address] documented as of this encounter
--- OUTSIDE RECORDS SUMMARY | 2022-02-09 09:05 | XMS_ITS | Encounter Summary ---
:1965 Author Organization [facility] Address [address], [place] [address] Care Team Providers Name Role Phone Briana Vazquez PA-C Primary Care Provider Encounter Details Date Type Department Care Team Description 12/10/2017 Lab Visit [facility] Hyper[facility] [address] [facility] LDL less than 130 [place], [place] [address] Social History Tobacco Use [...] Direct LDL(If Needed) (12/10/2017 10:23 AM CDT) [facility] gist Method Time Signature Hours Fasting 12 [...] 12/10/2017 3:48 PM C DT Performed at [facility], [address] [place] [address] ??[id number] Briana Vazquez PA-C LAB_1 Performing Organization Address City/State/ZIP Code Phon e Number [facility] [phone] documented in this encounter Visit Diagnoses Diagnosis Hyperlipidemia with target LDL less than 130 (HRC) Other and unspecified hyperlipidemia documented in this encounter Care Teams Needle Control Cheniller Relationship Specialty Start Date End Date Briana Vazquez PA-C PCP - General Physician Fbi Sharpshooter 06/30/17 10/03/19 [address] [place] [address] documented as of this encounter
--- OUTSIDE RECORDS SUMMARY | 2022-02-09 09:05 | XMS_ITS | Encounter Summary ---
:1965 Author Organization [employer] Address [address] [place] [address] Care Team Providers Name Role Phone Briana Vazquez PA-C Primary Care Provider Reason for Visit Reason Comments FOLLOW-UP,HOSPITAL Encounter Details Date Type Department Care Team Description 05/09/2018 Office Visit [place] Camilo Gallagher, Toxic encephalopathy (Primary Dx); Practice MD Chronic low back pain, unspecified back pain laterality, with sciatica presence unspecified; [address] [place] [address] Essential hypertension; [place], [place] Urinary urgency [phone] [id number] Social History Tobacco Use Types Packs/Day Years [...] Comments Blood Pressure 96/56 05/09/2018 10:03 AM INSPECTOR INTEGRATED [employer]CUITS Pulse 85 05/09/2018 10:03 AM INSPECTOR [employer]TEGR[employer]CU[employer] Temperature 37.1 ??C (98.7 ??F) 05/09/2018 10:03 AM INSPECTOR INTEGRATED CIRCUITS Respiratory Rate 20 05/09/2018 10:03 AM INSPECTOR INTEGRATED CIRCUITS Oxygen Saturation - - Inhaled Oxygen Concentration - - Weight 97.2 kg (214 lb 3.2 oz) 05/09/2018 10:03 AM INSPECTOR [employer]TEGRATED [employer]CUITS Height - - Body Mass Index 28.26 05/27/2017 1:39 PM CDT documented in this encounter Progress Notes Camilo Bullock MD - 05/09/2018 10:00 AM CST SUBJECTIVE: Patient presents for follow up following hospitalization at [facility] April 24-. Patient states he drank over a liter of rum in a 3 hour period and the next morning he was unable holden awakened and transported to [facility]. Apparently had acute toxic encephalopathy from alcohol, [...] both parents require help. 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 Happy [...] within 3 months, sooner if any concerns [employer] documented in this encounter Plan of Treatment Not on filedocumented as of this encounter Visit Diagnoses Diagnosis Toxic encephalopathy - Primary Chronic low back pain, unspecified back pain laterality, with sciatica presence unspecified (HRC) Essential hypertension (HRC) Unspecified essential hypertension Urinary urgency Urgency of urination documented in this encounter Care Teams Cold Reduction Roller Relationship Specialty Start Date End Date Briana Vazquez PA-C PCP - General Physician Sourcing Assistant 06/30/17 10/03/19 [address] [place] [address] documented as of this encounter
--- OUTSIDE RECORDS SUMMARY | 2022-02-09 09:05 | XMS_ITS | Encounter Summary ---
:1965 Author Organization [facility] Address [address] [place] [address] Care Team Providers Name Role Phone Briana Vazquez PA-C Primary Care Provider Reason for Visit Reason Comments LAB TESTS, NOS Encounter Details Date Type Department Care Team Description 09/26/2018 [facility] Briana Vazquez PA-C LAB TESTS, NOS [address] [facility] [address] [place], [place] [address] [place] [address] [phone] (Wo rk) Social History Tobacco Use Types [...] GT (Gamma GT) (09/29/2018 1:12 PM CDT) [facility] Method Time Signature GT (Gamma Gt) 43 12 - 64 09/29/2018 [facility] U/L 10:00 PM CDT CENTRAL LAB Specimen Anatomical Collection Method / Collection Time Recei lavonne Time (Source) Location / Volume Laterality Blood Venipuncture / 09/29/2018 1:12 09/29/2018 1:12 Unknown PM CDT PM CDT Coretta Hawkins APRN, STRIPPING SHOVEL OILER LAB_1 Performing Organization Address City/State/RUST Code Phon e Number [facility] [address] [address] Liver Panel(Hepatic Function Panel) (09/29/2018 1:12 PM CDT) [employer] Method Time Signature Alkaline 102 40 - 150 09/29/2018 [email or web address] Phosphatase U/L 7:21 PM CDT CENTRAL LAB [...] Organization Address City/State/ZIP Code Phon e Number [email or web address] LAB [address] [address] documented in this encounter Visit Diagnoses Diagnosis Bipolar affective disorder, remission st atus unspecified (HRC) - Primary documented in this encounter Care Teams Stereotyper Helper Relationship Specialty Start Date End Date Briana Vazquez PA-C PCP - General Physician Ell Tutor 06/30/17 10/03/19 [address] [place] [address] documented as of this encounter
--- OUTSIDE RECORDS SUMMARY | 2022-02-09 09:05 | XMS_ITS | Encounter Summary ---
:1965 Author Organization [facility] Address [address] [address] Care Team Providers Name Role Phone Briana Cabrera PA-C Primary Care Provider Reason for Visit Reason Comments Refill diclofenac (VOLTAREN) 50 MG enteric coated tablet [Pharmacy Med Name: Diclofenac Sodium Oral Table t Delayed Release 50 MG] Encounter Details Date Type Department Care Team Description 04/06/2018 Refill [facility] Briana Cabrera, Ref ill (diclofenac Practice ARLET (VOLTAREN) 50 MG enteric [address] [place] [address] [address] coated tablet [Pharmacy [place], [place] [address] [place], [place] Med Name: Diclofenac [phone] Sodium Oral Tablet [phone] (Wo rk) Delayed Release 50 MG]) Social [...] Refilled per standing order. Jessica Baez RN D EDUCATION DIRECTOR Interface, Out Surescripts Prov Query - 04/06/2018 11:52 AM CST diclofenac (VOLTAREN) 50 MG enteric coated tablet [Pharmacy Med Name: Diclofenac Sodium Oral Tablet Delayed Release 50 MG] NSAIDs -> Refill x 3 months (until due for an office visit and Cr check) Last qualifying visit: 05/27/2017 (in [facility]) Next scheduled visit: None Last ordered by BRIANA CABRERA: 11/09/2017 (148 days ago) QTY: 180, Refills: 0, Sig: take one tablet by mouth twice daily (unchanged) Cr: 0.89 mg/dL on 05/27/2017 HGB: 15.1 g/dL on 07/02/2017 Powered by [employer], Reference: [id number], 04/06/2018 11:52:52 AM FIELD EDUCATION DIRECTOR, Hector: ROB REFILL RN ([id number]) D EDUCATION DIRECTOR documented in this encounter Plan of Treatment Not on filedocumented as of this encounter Visit Diagnoses Not on filedocumented in this encounter Care Teams Logistics Lead Relationship Specialty Start Date End Date Briana Cabrera PAAshleyC PCP - General Physician Paperhanger Apprentice 06/30/17 10/03/19 [address] [place] [address] documented as of this encounter
--- OUTSIDE RECORDS SUMMARY | 2022-02-09 09:05 | XMS_ITS | Encounter Summary ---
:1965 Author Organization [facility] Address [address] [address] Care Team Providers Name Role Phone Briana Vazquez PA-C Primary Care Provider Reason for Visit Reason Onset Date Comments Refill 01/09/2019 omeprazole (PRILOSEC ) 20 MG capsule Encounter Details Date Type Department Care Team Description 01/09/2019 Refill [facility] Briana Vazquez, Ref ill (omeprazole Practice ARLET (PRILOSEC) 20 MG [address] [facility] [address] capsule) [place], [place] [address] [place], [place] [phone] (Wo rk) Social History Tobacco Use Types [...] CST per standing order Ashley Holly RN IC TANK SETTER Interface, Out Surescripts Prov Query - 01/09/2019 5:22 PM CST omeprazole (PRILOSEC) 20 MG capsule Miscellaneous - 12 Month Visit -> Refill x 6 months, qty: 90, refills: 1 (until due for an office visit) Last qualifying visit: 07/11/2018 (in [facility]) Next scheduled visit: None Last ordered by DELICIA MARTINEZ M: 05/09/2018 (245 days ago) QTY: 90, Refills: 1, Sig: take 1 capsule by mouth daily. take 1 hour before a meal. (unchanged) Powered by [employer], Reference: [id number], 01/09/2019 5:22:56 PM SEPTIC TANK SETTER, Pool: WYLIE RN ([id number]) IC TANK SETTER documented in this encounter Plan of Treatment Not on filedocumented as of this encounter Visit Diagnoses Not on filedocumented in this encounter Care Teams Assembler Surgical Garment Relationship Specialty Start Date End Date Briana Vazquez PA-C PCP - General Physician Iv Therapy Nurse 06/30/17 10/03/19 [address] [place] [address] documented as of this encounter
--- OUTSIDE RECORDS SUMMARY | 2022-02-09 09:05 | XMS_ITS | Encounter Summary ---
:1965 Author Organization [facility] Address [address] [place] [address] Care Team Providers Name Role Phone Briana Vazquez PA-C Primary Care Provider Reason for Visit Reason Comments Refill Encounter Details Date Type Department Care Team Description 01/09/2019 Refill [facility] Syeda Baker PA-C Refill [address] [address] [place], [place] [address] (Wo rk) Social History Tobacco Use Types [...] to refill this request through urgent care. WAY SIGNAL ELECTRICIAN documented in this encounter Plan of Treatment Not on filedocumented as of this encounter Visit Diagnoses Diagnosis Right knee pain, unspecified chronicity documented in this encounter Care Teams Jewelry Jobber Relationship Specialty Start Date End Date Briana Vazquez PA-C PCP - General Physician Bacon De Rinder 06/30/17 10/03/19 [address] [place] [address] documented as of this encounter
--- OUTSIDE RECORDS SUMMARY | 2022-02-09 09:05 | XMS_ITS | Encounter Summary ---
:1965 Author Organization [facility] Address [address], [place] [address] Care Team Providers Name Role Phone Briana Vazquez PA-C Primary Care Provider Reason for Visit Procedure/Equipment (Routine) - Incomplete Specialty Diagnoses / Procedures Referred By Contact Refer red To Contact Diagnoses Right knee pain, unspecified chronicity Megan Turner, Procedures XR Knee Lt 1-2 Views Comparison [address] [facility] [place], [place] [address] Referral ID Status Reason Start Date Expiration Date Visits V isits Requested Authorized [id number] Incomplete 12/27/2018 03/27/2020 1 1 Encounter Details Date Type Department Care Team Description 12/27/2018 Ancillary [facility] Megan Turner Right knee pain, Procedure [address] MD [address] [facility] [place] [address] [phone] Social History Tobacco Use Types Packs/Day Years [...] Small patellar marginal osteophytes. Unremarkable soft tissues. eMgan Turner MD RAD GD documented in this encounter Visit Diagnoses Diagnosis Right knee pain, unspecified chronicity documented in this encounter Care Teams Senior Storage Administrator Relationship Specialty Start Date End Date Briana Vazquez PA-C PCP - General Physician Hotel Assistant Manager 06/30/17 10/03/19 [address] [place] [address] documented as of this encounter
--- OUTSIDE RECORDS SUMMARY | 2022-02-09 09:05 | XMS_ITS | Encounter Summary ---
:1965 Author Organization [facility] Address [address] [place] [address] Care Team Providers Name Role Phone Briana Vazquez PA-C Primary Care Provider Encounter Details Date Type Department Care Team Description 06/21/2018 Lab Visit [facility] [address] [place], [place] [address] Social History Tobacco Use [...] on filedocumented in this encounter Care Teams Quarter Trimmer Relationship Specialty Start Date End Date Briana Vazquez PA-C PCP - General Physician Social Service Worker 06/30/17 10/03/19 [address] [place] [address] documented as of this encounter
--- OUTSIDE RECORDS SUMMARY | 2022-02-09 09:05 | XMS_ITS | Encounter Summary ---
:1965 Author Organization [employer] Address [address] [address] Care Team Providers Name Role Phone Briana Vazquez PA-C Primary Care Provider Encounter Details Date Type Department Care Team Description 09/24/2018 Lab Visit [facility] Alcoholism (HRC) (Primary [address] [facility]) [place], [place] [address] Social History Tobacco Use [...] behavior documented in this encounter Care Teams Parts Counter Clerk Relationship Specialty Start Date End Date Briana Vazquez PA-C PCP - General Physician Production Support Manager 06/30/17 10/03/19 [address] [place], [place] [address] documented as of this encounter
--- OUTSIDE RECORDS SUMMARY | 2022-02-09 09:05 | XMS_ITS | Encounter Summary ---
:1965 Author Organization [employer] Address [address] [place] [address] Care Team Providers Name Role Phone Briana Vazquez PA-C Primary Care Provider Reason for Visit Reason Comments Problem Focused Exam Lost Filling/broken tooth Encounter Details Date Type Department Care Team Description 04/18/2018 Office Visit [facility] Rosa Childress P roblem Focused Exam Dentistry DDS (Lost Filling/broken [address] [place] [address] [address] [facility] tooth) [place] [address] [phone] Social History Tobacco Use Types Packs/Day Years [...] discomfort, Rough edges, Pt was chewing On Blackshear rancher and thetooth broke O: Fractured tooth [...] given; the procedure was minimally invasive. -SEDATIVE MUSLIM: Prepared #19 with incomplete removal of existing restorations. Applied no liner/varnish/base. Cavity Conditioner placed Preparation filled with glass ionomer material in A2 shade. Post-Op Instructions: Patient was advised of normal post-operative instructions, potential for post-operative sensitivity and the need to exercise care because of the risk of fracture. Care was assisted by SHANE Moyer NEXT PLANNED VISIT: [place] on # 19 Completed dental procedures in this visit ??? LIMITED ORAL EVALUATION ??? 19 FILM-PERIAPICAL FIRST ??? 19 DOL SEDATIVE FILLING Rosa Childress DDS 04/18/2018, 4:58 PM --End of Note-- OVEMENT LEAD documented in this encounter Plan of Treatment Scheduled Orders Name Type Priority Associated Order Schedule Diagnoses 19 19 PORCELAIN Dental Procedures Routine 1 Occur rences CROWN starting 2019 19 19 PROVISIONAL Dental Procedures Routine 1 Occ urrences CROWN starting 2019 documented as of this encounter Procedures Procedure Name Priority Date/Time Associated Diagnosis Comme nts 19 FILM-PERIAPICAL Routine 04/18/2018 4:00 PM IMPROVEMENT LEAD Fracture of tooth FIRST enamel and dentin 19 DOL SEDATIVE Routine 04/18/2018 4:00 PM IMPROVEMENT LEAD Fracture of too th FILLING enamel and dentin documented in this encounter Visit Diagnoses Diagnosis Fracture of tooth enamel and dentin - Pr imary documented in this encounter Care Teams Deli Clerk Relationship Specialty Start Date End Date Briana Vazquez PA-C PCP - General Physician Speech/Language Therapist 06/30/17 10/03/19 [address] [place] [address] documented as of this encounter
--- OUTSIDE RECORDS SUMMARY | 2022-02-09 09:05 | XMS_ITS | Encounter Summary ---
:1965 Author [facility] Address [address] [place] [address] Care Team Providers Name Role Phone Briana [...] on filedocumented in this encounter Care Teams Regional Account Executive Relationship Specialty Start Date End Date Briana Vazquez PA-C PCP - General Physician Chemical Reclamation Equipment Operator 11/29/19 [address] [place] [address] documented as of this encounter
--- OUTSIDE RECORDS SUMMARY | 2022-02-09 09:05 | XMS_ITS | Encounter Summary ---
:1965 Author Organization [facility] Address [address], [place] [address] Care Team Providers Name Role Phone Briana Cabrera PA-C Primary Care Provider Reason for Visit Reason Comments Refill atorvastatin (LIPITOR) 10 MG tablet [Pharmacy Med Name: Atorvastatin Calcium Oral Tablet 10 MG] Encounter Details Date Type Department Care Team Description 06/17/[address] [facility] Briana Cabrera, Ref ill (atorvastatin Practice ARLET (LIPITOR) 10 MG tablet [address] [facility] [address] [Pharmacy Med Name: [place], [place] [address] [place], [place] Atorvastatin Calcium [phone] Oral Tablet 10 MG]) [phone] (Wo rk) Social History Tobacco Use Types [...] date. Will route [place] PUCKETT to complete. JACUQIE Phipps 06/17/2018, 2:08 PM Interface, Out SureTubular Labsripts Prov Query - 06/17/2018 2:00 PM CDT atorvastatin (LIPITOR) 10 MG tablet [Pharmacy Med Name: Atorvastatin Calcium Oral Tablet 10 MG] Cholesterol - Statins -> The most recent order on 05/27/2018. -> Refill x 12 months, qty: 90, refills: 3 (until due for an office visit) Last qualifying visit: 05/09/2018 (in [facility]) Next scheduled visit: None Last ordered by BRIANA CABRERA M: 05/27/2017 (386 days ago) QTY: 90, Refills: 3, Sig: take 1 tab by mouth daily. (changed but equivalent) LDL: 67 mg/dL on 12/10/2017 Powered by [employer], Reference: [id number], 06/17/2018 2:00:34 PM CDT, Pool: WYLIE RN ([id number]) Interface, Out SureTubular Labsripts Prov Query - 06/17/2018 2:00 PM CDT The following lab order(s) may be associated with the following Patient Result Comment (Entered by Briana Cabrera PA-C at 12/10/2017 5:07 PM): LIPID PANEL AND DIRECT LDL(IF NEEDED) Looks good! Continue AtorvastatinJaclyn iNk Cabrera PA-C documented in this encounter Plan of Treatment Not on filedocumented as of this encounter Visit Diagnoses Diagnosis Hyperlipidemia with target LDL less than 130 (HRC) Other and unspecified hyperlipidemia documented in this encounter Care Teams Human Services Assistant Relationship Specialty Start Date End Date Briana Cabrera PA-C PCP - General Physician Asbestos Coverer 06/30/17 10/03/19 [address] [place] [address] documented as of this encounter
--- OUTSIDE RECORDS SUMMARY | 2022-02-09 09:05 | XMS_ITS | Encounter Summary ---
:1965 Author Organization [facility] Address [address], [place] [address] Care Team Providers Name Role Phone Briana Vazquez PA-C Primary Care Provider Encounter Details Date Type Department Care Team Description 12/14/2018 Lab Visit [facility] Encounter for long-term [address] [facility] (current) use of [place], [place] [address] medications [phone] Social History Tobacco Use Types Packs/Day Years [...] e are in use of medications the [facility] ts section. POTASSIUM Routine 12/14/2018 1:46 PM Encounter for Results for this CDT long-term (current) procedur e are in use of medications the [facility] ts section. documented in this encounter Results Potassium (12/14/2018 1:46 PM CDT) P athologist Signature Potassium 4.0 3.5 - 5.1 12/14/2018 [facility] mmol/L 6:47 PM CDT CENTRAL LAB Specimen Anatomical Collection Method / Collection Time Recei lavonne Time (Source) Location / Volume Laterality Blood Venipuncture / 12/14/2018 1:46 12/14/2018 1:46 Unknown PM CDT PM CDT Briana Vazquez PA-C LAB_1 Performing Organization Address [facility] Phon e Number [facility] [address] [place] [address] Creatinine / GFR (12/14/2018 1:46 PM CDT) [facility] Method Time Signature Creatinine 0.99 0.73 - 12/14/2018 [facility] 1.18 6:47 PM CDT CENTRAL LAB mg/dL GFR, Estimated >60 >60 12/14/2018 [facility] mL/min/1. 6:47 PM CDT CENTRAL LAB 73m2 GFR, Est If >60 >60 12/14/2018 [facility] mL/min/1. 6:47 PM CDT CENTRAL LAB [place] 73m2 Specimen Anatomical Collection Method / Collection Time Recei lavonne Time (Source) Location / Volume Laterality Blood Venipuncture / 12/14/2018 1:46 12/14/2018 1:46 Unknown PM CDT PM CDT Briana Vazquez PA-C LAB_1 Performing Organization Address [facility] Phon e Number [facility] CENTRAL LAB [address] [place] [address] documented in this encounter Visit Diagnoses Diagnosis Encounter for long-term (current) use of medications Encounter for long-term (current) use of other medications documented in this encounter Care Teams Stereotype Molder Relationship Specialty Start Date End Date Briana Vazquez PA-C PCP - General Physician Grades 7 8 Tutor 06/30/17 10/03/19 [address] [place] [address] documented as of this encounter
--- OUTSIDE RECORDS SUMMARY | 2022-02-09 09:05 | XMS_ITS | Encounter Summary ---
:1965 Author Organization [employer] Address [address] [place] [address] Care Team Providers Name Role Phone Briana Vazquez PA-C Primary Care Provider Reason for Visit Reason Comments Restorative Services Comps: , , Encounter Details Date Type Department Care Team Description 04/06/2018 Office Visit [facility] Rosa Childress R estorative Services Dentistry DDS (Comps: , , , ) [address] [facility] [address] [place] [phone] Social History Tobacco Use Types Packs/Day Years [...] can cause serious damage. 6. The finished anabaptism may be contoured slightly different and have [...] help prolong the life of your fillings. ATING ROOM ASSISTANT documented in this encounter Progress Notes Rosa [...] was delivered by Rosa Childress DDS. -COMPOSITE NONDENOMINATIONAL: Prepared #21 with complete caries removal. Prepared #5, #11, #19, #30 with minimal removal of tooth structure. Isolated area with high speed suction, cotton rolls, a rubber dam and a cheek guard. Applied Vitrebond on tooth 21. Bonding with Scotchbond [place] bonding material. Preparation on 5, 11, 21 [...] DDS 04/06/2018, 12:07 PM --End of Note-- ATING ROOM ASSISTANT documented in this encounter Plan of Treatment Not on filedocumented as of this encounter Procedures Procedure Name Priority Date/Time Associated Diagnosis Comme nts 21 RESIN-BASED Routine 04/06/2018 9:20 AM OPERATING ROOM ASSISTANT Dental attri tion, COMPOSITE-3 excessive SURF-POSTERIOR Fracture of tooth enamel and dentin 30 O RESIN-BASED Routine 04/06/2018 9:20 AM OPERATING ROOM ASSISTANT Dental attriti on, COMPOSITE-1 excessive SURFACE-POSTERIO 21 D RESIN-BASED Routine 04/06/2018 9:20 AM OPERATING ROOM ASSISTANT Dental caries extending COMPOSITE-1 into middle third of SURFACE-POSTERIO dentin 5 DB RESIN-BASED Routine 04/06/2018 9:20 AM OPERATING ROOM ASSISTANT Fracture of to oth COMPOSITE-2 enamel and dentin SURF-POSTERIOR 11 F COMPOSITE-1 Routine 04/06/2018 9:20 AM OPERATING ROOM ASSISTANT Fractured dent al SURFACE ANTERIOR restorative material documented in this encounter Visit Diagnoses Diagnosis Fracture of tooth enamel and dentin - Pr imary Fractured dental restorative material Other unsatisfactory anabaptism of exis ting tooth Dental attrition, excessive Excessive attrition of teeth, unspecifie d Dental caries extending into middle thir d of dentin documented in this encounter Care Teams Car Restorer Relationship Specialty Start Date End Date Briana Vazquez PA-C PCP - General Physician Senior Compliance Officer 06/30/17 10/03/19 [address] [place] [address] documented as of this encounter
--- OUTSIDE RECORDS SUMMARY | 2022-02-09 09:05 | XMS_ITS | Encounter Summary ---
:1965 Author Organization [facility] Address [address], [place] [address] Care Team Providers Name Role Phone Briana Vazquez PA-C Primary Care Provider Encounter Details Date Type Department Care Team Description 09/29/2018 Lab Visit [facility] Bipolar affective disorder, [address] [facility] remission status [place], [place] [address] unspecified ([facility]) [phone] Social History Tobacco Use Types Packs/Day Years [...] proce dure are in status unspecified the [facility] ts (C) section. GT (GAMMA GT) Routine 09/29/2018 1:12 PM Bipolar affective Res ults for this CDT disorder, remission procedur e are in status unspecified the [facility] ts (HRC) section. documented in this encounter Results GT (Gamma GT) (09/29/2018 1:12 PM CDT) [facility] gist Method Time Signature GT (Gamma Gt) 43 12 - 64 09/29/2018 Baboo U/L 10:00 PM CDT CENTRAL LAB Specimen Anatomical Collection Method / Collection Time Recei lavonne Time (Source) Location / Volume Laterality Blood Venipuncture / 09/29/2018 1:12 09/29/2018 1:12 Unknown PM CDT PM CDT Coretta Hawkins APRN, CNP LAB_1 Performing Organization Address [facility] Phon e Number [facility] Therapeutics[facility] CENTEREvent 38 [employer] CENTRAL LAB [address] [address] Liver Panel(Hepatic Function Panel) (09/29/2018 1:12 PM CDT) [facility] Method Time Signature Alkaline 102 40 - 150 09/29/2018 [facility] Phosphatase U/L 7:21 PM CDT CENTRAL LAB Bilirubin, 0.2 0.2 - 1.2 09/29/2018 [facility] Total mg/dL 7:21 PM CDT CENTRAL LAB Bilirubin, 0.1 0.0 - 0.5 09/29/2018 [facility] Direct mg/dL 7:21 PM CDT CENTRAL LAB AST (SGOT) 16 10 - 40 09/29/2018 [facility] U/[facility] 7:21 PM CDT C[facility]AL LAB ALT (SGPT) 20 0 - 55 09/29/2018 [facility] U/L 7:21 PM CDT CENTRAL LAB Protein, Total 7.4 6.4 - 8.3 09/29/2018 [facility] g/dL 7:21 PM CDT CENTRAL LAB Albumin 4.0 3.5 - 5.0 09/29/2018 [facility] g/dL 7:21 PM CDT CENTRAL LAB Specimen Anatomical Collection Method / Collection Time Recei lavonne Time (Source) Location / Volume Laterality Blood Venipuncture / 09/29/2018 1:12 09/29/2018 1:12 Unknown PM CDT PM CDT Coretta Hawkins APRN, CNP LAB_1 Performing Organization Address [facility] Phon e Number [facility] TherapeuticsNEW MEXICO RE[facility]IL[facility]ATION CENTEREvent 38 [employer] CENTRAL LAB [address] [address] documented in this encounter Visit Diagnoses Diagnosis Bipolar affective disorder, remission st atus unspecified (HRC) documented in this encounter Care Teams White Hat Hacker Relationship Specialty Start Date End Date Briana Vazquez PA-C PCP - General Physician Body Line Finisher 06/30/17 10/03/19 [address] [place] [address] documented as of this encounter
--- OUTSIDE RECORDS SUMMARY | 2022-02-09 09:05 | XMS_ITS | Encounter Summary ---
:1965 Author Organization [facility] Address [address] [place] [address] Care Team Providers Name Role Phone Briana Vazquez PA-C Primary Care Provider Reason for Visit Reason Comments Dental Hygiene cc skyler Encounter Details Date Type Department Care Team Description 01/31/2018 Office Visit [facility] Dental [facility] (cc Dentistry [address] [facility] skyler) [address] [place] [id number] Social History Tobacco Use Types Packs/Day Years [...] Comments Blood Pressure 132/77 01/31/2018 9:12 AM SEO CONSULTANT Pulse 57 01/31/2018 9:12 AM SEO CONSULTANT Temperature - - Respiratory Rate - - [...] Daily rinsing of fluoride product purchased at [facility] pharmacy or other retail store. Rinse with [...] your next visit! Thank you for choosing [employer]. CONSULTANT documented in this encounter Progress Notes Rosa [...] on # 11,Severe attrition and adv a lifeguard, Fractured tooth on # 30 and # 5 that have existing comp fillings adv to fill because that can cause decay Rosa Childress DDS 01/31/2018, 9:41 AM Next planned visit is Fillings . Completed dental procedures in this visit There are no completed dental procedures in this visit. --End of Note-- CONSULTANT Cherelle Lake - 01/31/2018 9:10 AM CST [...] ORAL EVALUATION Chief Complaint: Treatment Options: ??? [id number] ??? TOPICAL FLUORIDE VARNISH --End of Note-- CONSULTANT documented in this encounter Plan of Treatment Scheduled Orders Name Type Priority Associated Order Schedule Diagnoses PROPHYLAXIS-ADULT Dental Procedures Routine 1 Occ urrences RECALL starting 2019 PERIODIC ORAL Dental Procedures Routine 1 Occurre nces EVALUATION starting 2019 TOPICAL FLUORIDE Dental Procedures Routine 1 Occu rrences VARNISH starting 2019 [id number] Dental Procedures Routine 1 Oc currences starting 2019 documented as of this encounter Procedures Procedure Name Priority Date/Time Associated Diagnosis Comme nts TOPICAL FLUORIDE Routine 01/31/2018 9:10 AM Routine health VARNISH SEO CONSULTANT maintenance [id number] Routine 01/31/2018 9:10 AM Routine health SEO CONSULTANT maintenance PERIODIC ORAL Routine 01/31/2018 9:10 AM Routine health EVALUATION SEO CONSULTANT maintenance PROPHYLAXIS-ADULT Routine 01/31/2018 9:10 AM Routine health RECALL SEO CONSULTANT maintenance documented in this encounter Visit Diagnoses Diagnosis Routine health maintenance - Primary Routine general medical examination at a health care facility documented in this encounter Care Teams Director Of Pupil Personnel Program Relationship Specialty Start Date End Date Briana Vazquez PA-C PCP - General Physician Water Filtration Technician 06/30/17 10/03/19 [address] [place] [address] documented as of this encounter
--- OUTSIDE RECORDS SUMMARY | 2022-02-09 09:05 | XMS_ITS | Encounter Summary ---
:1965 Author Organization [facility] Address [address] [address] Care Team Providers Name Role Phone Briana Vazquez PA-C Primary Care Provider Reason for Visit Reason Comments IMMUNIZATIONS Encounter Details Date Type Department Care Team Description 12/10/2017 Nursing Visit [facility] ter for immunization Department (Primary Dx) [address] [place], [place] [address] Social History Tobacco Use [...] disease documented in this encounter Care Teams Warehouse Handler Relationship Specialty Start Date End Date Briana Vazquez PA-C PCP - General Physician Elect Equip Maint Eng 06/30/17 10/03/19 [address] [place] [address] documented as of this encounter
--- OUTSIDE RECORDS SUMMARY | 2022-02-09 09:05 | XMS_ITS | Encounter Summary ---
:1965 Author Organization [facility] Address [address] [address] Care Team Providers Name Role Phone Briana Vazquez PA-C Primary Care Provider Reason for Visit Reason Comments Refill lisinopril (ZESTRIL) 10 MG t ablet [Pharmacy Med Name: Lisinopril Oral Tablet 10 MG] Encounter Details Date Type Department Care Team Description 12/11/2018 Refill [facility] Camilo Bullock MD Refill (lisinopril Practice [address] (ZESTRIL) 10 MG tablet [address] [place], [place] [Pharmacy Med Name: [place], [place] [address] Lisinopril Oral Tablet [phone] (Wo rk) 10 MG]) Social History Tobacco [...] patient Patient is due for: Lab Visit [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 Loly Felton RN 12/12/2018, 8:39 AM Interface, Out Surescripts Prov Query - 12/12/2018 8:26 AM CDT lisinopril (ZESTRIL) 10 MG tablet [Pharmacy Med Name: Lisinopril Oral Tablet 10 MG] Hypertension -> Cr and K are overdue (performed 19 months ago, required every 12 months) Last qualifying visit: 07/11/2018 ([facility]) Next scheduled visit: None Last ordered by CAMILO BULLOCK M: 05/09/2018 (217 days ago) QTY: 90, Refills: 1, Sig: take 1 tablet bymouth daily. (changed but equivalent) Cr: 0.89 mg/dL on 05/27/2017 K: 4.5 mEq/L on 05/27/2017 Powered by [employer], Reference: [id number], 12/12/2018 8:26:11 AM CDT, Pool: WYLIE RN ([id number]) documented in this encounter Plan of Treatment Not on filedocumented as of this encounter Results Potassium (12/14/2018 1:46 PM CDT) P athologist Signature Potassium 4.0 3.5 - 5.1 12/14/2018 [facility] mmol/L 6:47 PM CDT CENTRAL LAB Specimen Anatomical Collection Method / Collection Time Recei lavonne Time (Source) Location / Volume Laterality Blood Venipuncture / 12/14/2018 1:46 12/14/2018 1:46 Unknown PM CDT PM CDT Briana Vazquez PA-C LAB_1 Performing Organization Address City/State/ZIP Code Phon e Number [facility] CENTRAL LAB [address] [address] Creatinine / GFR (12/14/2018 1:46 PM CDT) Patholo gist Method Time Signature Creatinine 0.99 0.73 - 12/14/2018 [facility] 1.18 6:47 PM CDT CENTRAL LAB mg/dL GFR, Estimated >60 >60 12/14/2018 [facility] mL/min/1. 6:47 PM CDT CENTRAL LAB 73m2 GFR, Est If >60 >60 12/14/2018 [facility] mL/min/1. 6:47 PM CDT CENTRAL LAB [place] 73m2 Specimen Anatomical Collection Method / Collection Time Recei lavonne Time (Source) Location / Volume Laterality Blood Venipuncture / 12/14/2018 1:46 12/14/2018 1:46 Unknown PM CDT PM CDT Briana Vazquez PA-C LAB_1 Performing Organization Address City/State/ZIP Code Phon e Number [facility] CENTRAL [facility] [address] [id number] documented in this encounter Visit Diagnoses Diagnosis Encounter for long-term (current) use of medications - Primary Encounter for long-term (current) use of other medications Essential hypertension (HRC) Unspecified essential hypertension documented in this encounter Care Teams Feeder Operator Automatic Relationship Specialty Start Date End Date Briana Vazquez PA-C PCP - General Physician Field Technician 06/30/17 10/03/19 [address] [place] [address] documented as of this encounter
--- OUTSIDE RECORDS SUMMARY | 2022-02-09 09:05 | XMS_ITS | Encounter Summary ---
:1965 Author Organization [facility] Address [address] [place] [address] Care Team Providers Name Role Phone Briana Vazquez PA-C Primary Care Provider Reason for Visit Reason Comments Lost Bahai Encounter Details Date Type Department Care Team Description 04/18/2018 Telephone [facility] Yaej, Alexis in L, DDS Lost Bahai Dentistry [address] [facility] [id number] [place] [address] [place], [place] [address] [phone] Social History Tobacco Use Types Packs/Day Years [...] causing your problem? [] Accident [x] Lost Bahai [] Broken Tooth [] Chipped Tooth [] [...] dental treatment? [x] No [] Yes Comments: [employer] documented in this encounter Plan of Treatment Not on filedocumented as of this encounter Visit Diagnoses Not on filedocumented in this encounter Care Teams Mechanical Applications Engineer Relationship Specialty Start Date End Date Briana Vazquez PA-C PCP - General Physician Head Librarian 06/30/17 10/03/19 [address] [place] [address] documented as of this encounter
--- OUTSIDE RECORDS SUMMARY | 2022-02-09 09:05 | XMS_ITS | Encounter Summary ---
:1965 Author Organization [facility] Address [address] [address] Care Team Providers Name Role Phone Briana Vazquez PA-C Primary Care Provider Reason for Visit Procedure/Equipment (Routine) - Incomplete Specialty Diagnoses / Procedures Referred By Contact Refer red To Contact Diagnoses Right knee pain, unspecified chronicity Megan Turner [place], Procedures MR Knee Rt WO IV Cont MD [address] [facility] [place], [place] [address] Referral ID Status Reason Start Date Expiration Date Visits V isits Requested Authorized [id number] Incomplete 12/27/2018 03/27/2020 1 1 Encounter Details Date Type Department Care Team Description 01/02/2019 Ancillary [facility] MRI Megan Turner Right knee pain, Procedure [address] MD unspecified Drive [address] [facility] [place] [address] [phone] Social History Tobacco Use Types Packs/Day Years [...] chronicity documented in this encounter Care Teams Health Plan Manager Relationship Specialty Start Date End Date Briana Vazquez PA-C PCP - General Physician Fashion Designer 06/30/17 10/03/19 [address] [place] [address] documented as of this encounter
--- OUTSIDE RECORDS SUMMARY | 2022-02-09 09:05 | XMS_ITS | Encounter Summary ---
:1965 Author Organization [facility] Address [address] [place] [address] Care Team Providers Name Role Phone Briana [...] Type Department Care Team Description 12/11/2018 Refill [facility] Camlio Bullock MD Refill (gabapentin Practice [address] (NEURONTIN) 600 MG [address] [place], [place] tablet [Pharmacy Med [place], [place] [address] Name: Gabapentin Oral [id number] (Wo rk) Tablet 600 MG]; tamsulosi n (FLOMAX) 0.4 MG CAPS capsule [Pharmacy Med N trevor: Tamsulosin HCl Oral Capsule 0.4 MG] ; tolterodine (DE TROL) 2 MG tablet [facility]: Tolterodi ne Tartrate [...] visit) Last qualifying visit: 07/11/2018 (in [facility]) Next scheduled visit: None Last ordered by CAMILO BULLOCK M: 05/09/2018 (217 days ago) QTY: 270, Refills: 1, Sig: take 1 tablet by mouth three times a day. (changed but equivalent) Powered by [employer], Reference: [id number], 12/12/2018 8:26:11 AM CDT, Pool: WYLIE RN ([id number]) tamsulosin (FLOMAX) 0.4 MG CAPS capsule [Pharmacy Med Name: Tamsulosin HCl Oral Capsule 0.4 MG] Miscellaneous - 12 Month Visit -> Refill x 9 months, qty: 90, refills: 2 (until due for an office visit) Last qualifying visit: 07/11/2018 (in [facility]) Next scheduled visit: None Last ordered by CAMILO BULLOCK M: 05/09/2018 (217 days ago) QTY: 90, Refills: 1, Sig: take 1 capsule by mouth daily. (changed but equivalent) Powered by [employer], Reference: [id number], 12/12/2018 8:26:11 AM NICOLE, Pool: WYLIE RN ([id number]) tolterodine (DETROL) 2 MG tablet [Pharmacy Med [...] mouth daily. (changed but equivalent) Powered by [employer], Reference: [id number], 12/12/2018 8:26:11 AM CDT, Pool: ROB REFILL RN ([id number]) documented in this encounter Plan of Treatment Not on filedocumented as of this encounter Visit Diagnoses Diagnosis Chronic low back pain Lumbago Essential hypertension (HRC) Unspecified essential hypertension Urinary urgency Urgency of urination documented in this encounter Care Teams 1St Pressman On Web Press Relationship Specialty Start Date End Date Braina Cabrera PA-C PCP - General Physician Obgyn Nurse 06/30/17 10/03/19 [address] [place] [address] documented as of this encounter
--- OUTSIDE RECORDS SUMMARY | 2022-02-09 09:05 | XMS_ITS | Encounter Summary ---
:1965 Author Organization [facility] Address [address] [place] [address] Care Team Providers Name Role Phone Briana Vazquez PA-C Primary Care Provider Reason for Referral Consult/Transfer Care (Routine) - Closed Specialty Diagnoses / Procedures Referred By Contact Refer red To Contact Diagnoses Right knee pain, unspecified chronicity Syeda Baker PA-C [address] [place], [place] [address] Referral ID Status Reason Start Date Expiration Date Visits Requ ested Visits Authorized [id number] Closed 12/14/2018 03/14/2020 1 1 Scheduling Instructions Your provider has recommended an appoint ment with [facility] [place]. You may call [phone] to schedule your appoi ntment. If you do not schedule an appointment within the next 1 to 3 business days, we will call you to help arrange your appointment. We suggest you call your [employer] insurance Grain Management about your coverage and benefits for this appointment. Reason for Visit Reason Comments KNEE PAIN Encounter Details Date Type Department Care Team Description 12/14/2018 Office Visit [facility] Syeda Yost Rig ht knee pain, Kaleb NICE unspecified chronicity [address] [facility] [address] (Primary Dx) [place], [place] [address] [place], [place] [phone] [address] Social History Tobacco Use Types Packs/Day Years [...] with this knee before. 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 He should wear it [...] Baker PA-C This note was created using [id number] software. Some errors may exist that were [...] Primary documented in this encounter Care Teams Application Operations Engineer Relationship Specialty Start Date End Date Briana Vazquez PA-C PCP - General Physician Stacker And Sorter Operator 06/30/17 10/03/19 [address] [place] [address] documented as of this encounter
--- OUTSIDE RECORDS SUMMARY | 2022-02-09 09:05 | XMS_ITS | Encounter Summary ---
:1965 Author Organization [facility] Address [address] [address] Care Team Providers Name Role Phone Briana Vazquez PA-C Primary Care Provider Reason for Visit Reason Comments No Show pt.failed op appt. 7 units Encounter Details Date Type Department Care Team Description 02/22/2018 Telephone [facility] Genesis Khanna LDA No Show ( pt.failed op Dentistry [address] [facility] appt. 7 units ) [address] [place], [place] [address] Social History Tobacco [...] and resched. SHANE Edwards 02/22/2018, 10:51 AM STERED DIET TECHNICIAN documented in this encounter Plan of Treatment Not on filedocumented as of this encounter Visit Diagnoses Not on filedocumented in this encounter Care Teams Battery Hand Relationship Specialty Start Date End Date Briana Vazquez PA-C PCP - General Physician Capture Manager 06/30/17 10/03/19 [address] [place] [address] documented as of this encounter
--- OUTSIDE RECORDS SUMMARY | 2022-02-09 09:05 | XMS_ITS | Encounter Summary ---
:1965 Author Organization [facility] Address [address] [place] [address] Care Team Providers Name Role Phone Briana Vazquez PA-C Primary Care Provider Reason for Visit Reason Comments LAB RESULTS Cholesterol, would like to i ncrease lipitor Labs Needed Would like testosterone test ing Encounter Details Date Type Department Care Team Description 07/11/2018 Office Visit [facility] Tez Vazquez PA-C [address] [place], [place] [id number] Erectile dysfunction, unspecified erecti le dysfunction type (Primary Dx); [place] [address] [place] [address] Hyperlipidemia with target LDL less than 130 [address] [place] [address] Social History Tobacco Use Types [...] Followed by a psychiatrist, Dr. Chaudhry, at [facility] who advised that he consider going up [...] hyperlipidemia documented in this encounter Care Teams Supervisor Game Farm Relationship Specialty Start Date End Date Briana Vazquez PA-C PCP - General Physician Religious Activities Director 06/30/17 10/03/19 [address] [place] [address] documented as of this encounter
--- OUTSIDE RECORDS SUMMARY | 2022-02-09 09:05 | XMS_ITS | Encounter Summary ---
:1965 Author Organization [facility] Address [address], [place] [address] Care Team Providers Name Role Phone Briana Vazquez PA-C Primary Care Provider Encounter Details Date Type Department Care Team Description 06/21/2018 Lab Visit [facility] High risk medication use (Pr imary Dx); [address] [facility] Screening, lipid [place], [place] [address] Social History Tobacco Use [...] Glucose 122 (H) 70 - 100 06/21/2018 [facility] mg/dL 3:10 PM CDT CENTRAL LAB Specimen Anatomical Collection Method / Collection Time Recei lavonne Time (Source) Location / Volume Laterality Blood Venipuncture / 06/21/2018 12:06 9 Unknown PM CDT 12:06 PM CDT Coretta Hawkins APRN, CNP LAB_1 Performing Organization Address [facility] Phon e Number [facility] CENTRAL LAB [address] [address] (ABNORMAL) Lipid Panel and Direct LDL(If Needed) (06/21/2018 12:06 PM CDT) [facility] [employer] Method Time Signature Cholesterol 185 0 - [...] CNP LAB_1 Performing Organization Address [facility] Phon e Number [email or web address] CENTRAL LAB [address] [address] Hgb A1C (06/21/2018 12:06 PM CDT) [facility] [employer] Method Time Signature Hemoglobin A1C 5.0 <=5.6 % 06/21/2018 [facility] 3:25 PM CDT CENTRAL LAB Specimen Anatomical Collection Method / Collection Time Recei lavonne Time (Source) Location / Volume Laterality Blood Venipuncture / 06/21/2018 12:06 9 Unknown PM CDT 12:06 PM CDT Coretta Hawkins APRN, JENNY LAB_1 Performing Organization Address City/State/ZIP Code Phon e Number [facility] [address] [address] documented in this encounter Visit Diagnoses Diagnosis High risk medication use - Primary Encounter for long-term (current) use of other medications Screening, lipid Screening for lipoid disorders documented in this encounter Care Teams Wood Tool Maker Relationship Specialty Start Date End Date Briana Vazquez PA-C PCP - General Physician Forest Fire Officer 06/30/17 10/03/19 [address] [place] [address] documented as of this encounter
--- OUTSIDE RECORDS SUMMARY | 2022-02-09 09:05 | XMS_ITS | Encounter Summary ---
:1965 Author Organization [facility] Address [address], [place] [address] Care Team Providers Name Role Phone Briana Vazquez PA-C Primary Care Provider Reason for Referral (Routine) - Closed Specialty Diagnoses / Procedures Referred By Contact Refer red To Contact Diagnoses Tear of medial meniscus of right knee, current, unspecified tear type, subsequent encounter Megan Turner, Procedures Triamcinolone Acet Inj Nos: (per 10 mg) [address] [place] [address] [place], [place] [address] Referral ID Status Reason Start Date Expiration Date Visits Requ ested Visits Authorized [id number] Closed 01/02/2019 04/02/2020 1 1 Reason for Visit Reason Comments Knee Pain or Injury Encounter Details Date Type Department Care Team Description 01/02/2019 Office Visit Megan Gallegos Tear o f medial CENTER MD Jeferson meniscus of right [address] [facility] [address] [place] [address] knee, current, [place], [place] [address] [place], [place] unspecified tear [phone] type, subsequent [phone] (Wo rk) encounter (Primary Dx) Social History [...] MD Sports Medicine & Pediatric Sports Medicine Despatching And Receiving Clerk: Renetta Valderrama Please contact Renetta for all administrative questions at [phone] Fish Net Stringer: Jessica ATC Please contact Jessica for all medical questions at [phone] Medication Requests: Prescriptions are not filled on Weekends or on Weekdays after 3:00PM For all medication refills: Request a refill using [facility] or contact your Pharmacy The right knee was injected with Kenalog-40 and lidocaine. Avoid Strenuous Activity for the remainder of the day and avoid activities that cause pain for one to two weeks following the injection. Signs and Symptoms to watch for: If you have any redness, warmth or increasing pain at the site of the injection or develop a fever, please call [phone] You've just had a steroid (cortisone) injection: [...] Primary documented in this encounter Care Teams Hand Mixer Relationship Specialty Start Date End Date Briana Vazquez PA-C PCP - General Physician Certified Dental Assistant 06/30/17 10/03/19 [address] [place] [address] documented as of this encounter
--- OUTSIDE RECORDS SUMMARY | 2022-02-09 09:05 | XMS_ITS | Encounter Summary ---
:1965 Author Organization [facility] Address [address] [place] [address] Care Team Providers Name Role Phone Briana Vazquez PA-C Primary Care Provider Reason for Visit Reason Comments Refill Encounter Details Date Type Department Care Team Description 01/11/2019 Refill [facility] [place] Syeda Baker PA-C Refill [address] [address] [place], [place] [id number] (Wo rk) Social History Tobacco Use Types [...] CST No refills authorized through Urgent Care. 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
--- OUTSIDE RECORDS SUMMARY | 2022-02-09 09:06 | XMS_ITS | Encounter Summary ---
:1965 Author Organization [facility] Address [address] [place] [address] Care Team Providers Name Role Phone Briana Vazquez PA-C Primary Care Provider Reason for Visit Reason Comments BLOOD PRESSURE CHECK Consult/Transfer Care (Routine) - Closed Specialty Diagnoses / Procedures Referred By Contact Refer red To Contact Diagnoses Essential hypertension (HRC) Briana Vazquez PA-C [address] [place], [place] [address] Referral ID Status Reason Start Date Expiration Date Visits Requ ested Visits Authorized [id number] Closed 05/27/2017 08/26/2018 1 1 Encounter Details Date Type Department Care Team Description 07/02/2017 Nursing Visit [facility] Yael santos hypertension Department (Primary Dx) [address] [place] [address] 24 Social History Tobacco Use Types Packs/Day [...] Sign Reading Time Taken Comments Blood Pressure 134/83 07/02/2017 4:26 PM CDT Pulse 86 07/02/2017 4:26 PM CDT Temperature - - Respiratory Rate 20 07/02/2017 4:26 PM CDT Oxygen Saturation - - Inhaled Oxygen Concentration - - Weight - - Height - - Body Mass Index - - documented in this encounter Progress Notes Kristin Minor LPN - 07/02/2017 4:29 PM CDT S Nicanor Alvarado here today for follow up blood pressure check. Medications were reviewed: currently prescribed and taking blood pressure medication(s) O BP 134/83 Pulse 86 Resp 20 Blood pressures recorded: BP Readings from Last 1 Encounters: 07/02/17 1626 134/83 A Blood pressure at goal. P Follow-up blood pressure annually or as previously recommended by PCP. CC to PCP for review Kristin Crowe AHMET Minor 07/02/2017, 4:29 PM documented in this encounter Nursing Notes Ninfa Matos RN, BSN - 07/01/2017 3:20 PM CDT Nurse managed. Clinician plan of care noted 05/27/17. BP borderline but hasn't been taking his lisinopril. Refilled today,nurse visit in a few weeks for recheck. Plan to consult with provider. Unclear why his is taking propranolol Lisinopril 10 mg QD Propranolol 10 mg TID Last BP: BP Readings from Last 3 Encounters: 05/27/17 (!) 138/92 10/10/16 107/69 02/26/16 123/72 Ninfa Matos RN, BSN 07/01/2017, 7:48 AM documented in this encounter Plan of Treatment Not on filedocumented as of this encounter Visit Diagnoses Diagnosis Essential hypertension (HRC) - Primary Unspecified essential hypertension documented in this encounter Care Teams Parachutist/Combatant Diver Qualified Relationship Specialty Start Date End Date Briana Vazquez PA-C PCP - General Physician Valve Lapper 06/30/17 10/03/19 [address] [place] [address] documented as of this encounter
--- OUTSIDE RECORDS SUMMARY | 2022-02-09 09:06 | XMS_ITS | Encounter Summary ---
:1965 Author Organization [facility] Address [address] [place] [address] Care Team Providers Name Role Phone Briana Vazquez PA-C Primary Care Provider Reason for Visit Reason Comments Lost Religious Encounter Details Date Type Department Care Team Description 12/09/2017 Telephone [facility] Margy, Alexis in [place], DDS Lost Religious Dentistry [address] [facility] [address] [place] [address] [place], [place] [address] [phone] Social History Tobacco Use Types Packs/Day Years [...] causing your problem? [] Accident [x] Lost Religious [] Broken Tooth [] Chipped Tooth [] [...] on filedocumented in this encounter Care Teams Match Up Person Relationship Specialty Start Date End Date Briana Vazquez PA-C PCP - General Physician Patient Registration Supervisor 06/30/17 10/03/19 [address] [place] [address] documented as of this encounter
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
--- OUTSIDE RECORDS SUMMARY | 2022-02-09 09:06 | XMS_ITS | Encounter Summary ---
:1965 Author Organization [facility] Address [address], [place] [address] Care Team Providers Name Role Phone Briana Vazquez PA-C Primary Care Provider Encounter Details Date Type Department Care Team Description 06/28/2017 Refill Order [facility] No Primary/Referring, [address] [place], [place] [address] Social History Tobacco Use [...] CDT Unable to sign lab orders. Clinical assistant cross country coach, please contact patient and assign a primary care provider. Please route message back to [facility]. Kristin Arias, LAVERN/[facility] 06/30/2017 1:25 PM documented in this encounter Nursing Notes Interface, Out [place] Prov Query - 06/28/2017 6:27 PM CDT [...] You can schedule your appointment online at Luristic or by calling the appointment center at the phone number listed above. [facility]. Tanna Yen RN [facility] Powered by Glints, Reference: [id number], 06/28/2017 6:27:37 PM CDT, Pool: WYLIE RN ([id number]) documented in this encounter Plan of Treatment [...] 07/02/2017 6:32 PM C DT Performed at [facility], [address] [place] [id number] Briana Vazquez PA-C LAB_1 Performing Organization Address City/State/[facility] Phon e Number [facility] [phone] documented in this encounter Visit Diagnoses Diagnosis Encounter for long-term (current) use of medications - Primary Encounter for long-term (current) use of other medications Encounter for long-term (current) use of medications Encounter for long-term (current) use of other medications documented in this encounter Care Teams Inspector Cold Working Relationship Specialty Start Date End Date Briana Vazquez PA-C PCP - General Physician Neonatal Intensive Care Unit Nurse 06/30/17 10/03/19 [address] [place] [address] documented as of this encounter
--- OUTSIDE RECORDS SUMMARY | 2022-02-09 09:06 | XMS_ITS | Encounter Summary ---
:1965 Author Organization [employer] Address [address] [place] [address] Care Team Providers Name Role Phone Yaneth Dodd MD Primary Care Provider Reason for Visit Reason Onset Date Comments Refill 03/05/2017 Encounter Details Date Type Department Care Team Description 03/05/2017 Refill [facility] BriannaJonathan , DO Refill [facility] [address] [place] [address] [place] [address] [phone] Social History Tobacco Use Types Packs/Day Years [...] AM CST Received another refill for tamsulosin Y DAYCARE ACTIVITIES DIRECTOR Cortney Jesus - 03/05/2017 4:28 PM CST Fax received for a refill on tamsulosin (FLOMAX) 0.4 MG CAPS capsule and would like it sent to Pharmacy: [facility] [place], [place] - [address] [address] Y DAYCARE ACTIVITIES DIRECTOR documented in this encounter Plan of Treatment Not on filedocumented as of this encounter Visit Diagnoses Not on filedocumented in this encounter Care Teams Sulfide Head Operator Relationship Specialty Start Date End Date Yaneth Dodd MD PCP - General 08/01/09 04/28/17 [address] [place] [address] documented as of this encounter
--- OUTSIDE RECORDS SUMMARY | 2022-02-09 09:06 | XMS_ITS | Encounter Summary ---
:1965 Author Organization [facility] Address [address] [place] [address] Care Team Providers Name Role Phone No Primary/ReferringOsiel Primary Care Provider Unavailable Encounter Details Date Type Department Care Team Description 04/29/2017 Notes/Orders Security Contact Danny Hawkins, CLOTH SPONGER, TECHNICAL MAINTENANCE TECHNICIAN [address] [facility] [address] [place] [address] (Wo rk) Social History Tobacco Use Types [...] on filedocumented in this encounter Care Teams Radio Rigger Relationship Specialty Start Date End Date No Primary/ReferringOsiel PCP - General 04/29/17 documented as of this encounter
--- OUTSIDE RECORDS SUMMARY | 2022-02-09 09:06 | XMS_ITS | Encounter Summary ---
:1965 Author Organization [facility] Address [address], [place] [address] Care Team Providers Name Role Phone No Primary/Referring, Phy Primary Care Provider Unavailable Encounter Details Date Type Department Care Team Description 05/27/2017 Lab Visit [facility] ory Essential hypertension; [address] [facility] Screening for viral disease [place], [place] [address] Social History Tobacco Use [...] Ag/Ab 4th Generation (05/27/2017 2:42 PM CDT) [facility] Method Time Signature HIV 1/2 AG/AB Negative NEGNR [facility] 4thGEN (Non LABORATORIES Reactive) Comment: HIV-1 p24 Ag and HIV-1/HIV-2 Ab not detected. Specimen Anatomical Collection Method Collection Time Receive d Time (Source) Location / / Volume Laterality 05/27/2017 2:42 PM 8 2:44 CDT PM CDT Narrative [facility] - 05/27/2017 7:17 PM C DT Performed at [address] ??[address] Briana Vazquez PA-C LAB_1 Performing Organization Address [facility] Phon e Number [facility] [phone] Hepatitis C Antibody, with Reflex (05/27/2017 2:42 PM CDT) [facility] gist Method Time Signature Anti-HCV Negative (Non NEGNR [facility] Reactive) LABORATORIES Comment: Antibodies to HCV not detected. Does not exclude the possibility of exposure to HCV. Specimen Anatomical Collection Method Collection Time Receive d Time (Source) Location / / Volume Laterality 05/27/2017 2:42 PM 8 2:44 CDT PM CDT Narrative [facility] - 05/27/2017 6:44 PM C DT Performed at [address] ??[address] Briana Vazquez PA-C LAB_1 Performing Organization Address [facility] Phon e Number [facility] [phone] Creatinine / GFR (05/27/2017 2:42 PM CDT) [facility] Signature Creatinine 0.89 0.73 - [facility] 1.18 mg/dl LABORATORIES GFR, Estimated >60 >60 [facility] ml/min/1.7 LABORATORIES 3m2 GFR, Est., If >60 >60 [facility] Black ml/min/1.7 LABORATORIES 3m2 Specimen Anatomical Collection Method Collection Time Receive d Time (Source) Location / / Volume Laterality 05/27/2017 2:42 PM 8 2:44 CDT PM CDT Narrative [facility] - 05/27/2017 6:23 PM C DT Performed at [address] [place], [place] ??[address] Briana Vazquez PA-C LAB_1 Performing Organization Address City/[facility] Phon e Number [facility] [phone] Potassium (05/27/2017 2:42 PM CDT) athologist Signature Potassium 4.5 3.5 - 5.1 [facility] mmol/L Specimen Anatomical Collection Method Collection Time Receive d Time (Source) Location / / Volume Laterality 05/27/2017 2:42 PM 8 2:44 CDT PM CDT Narrative [facility] - 05/27/2017 6:23 PM C DT Performed at [address] ??[address] Briana Vazquez PA-C LAB_1 Performing Organization Address [facility] Phon e Number [facility] [phone] documented in this encounter Visit Diagnoses Diagnosis Essential hypertension (HRC) Unspecified essential hypertension Screening for viral disease Special screening examination for unspec ified viral disease documented in this encounter Care Teams Capital Project Engineer Relationship Specialty Start Date End Date No Primary/Referring, Phy PCP - General 04/29/17 documented as of this encounter
--- OUTSIDE RECORDS SUMMARY | 2022-02-09 09:06 | XMS_ITS | Encounter Summary ---
:1965 Author Organization [facility] Address [address] [place] [address] Care Team Providers Name Role Phone No Primary/Referring, Phjoe Primary Care Provider Unavailable Reason for Visit Reason Comments Same Day/Next Day Appt. Encounter Details Date Type Department Care Team Description 05/25/2017 Telephone [facility] Unknown, Same Day /Next Day Appt. Practice Physician [address] [address] [place], [place] [phone] [address] Social History Tobacco Use Types Packs/Day Years [...] voicemail? Yes Jennifer Byrne Please route to: [facility] Computer Artist/General Pool documented in this encounter Plan of Treatment Not on filedocumented as of this encounter Visit Diagnoses Not on filedocumented in this encounter Care Teams Circular Knitter Relationship Specialty Start Date End Date No Primary/Referring, Phy PCP - General 04/29/17 documented as of this encounter
--- OUTSIDE RECORDS SUMMARY | 2022-02-09 09:06 | XMS_ITS | Encounter Summary ---
:1965 Author Organization [facility] Address [address], [place] [address] Care Team Providers Name Role Phone Briana Vazquez PA-C Primary Care Provider Reason for Visit Reason Onset Date Comments Refill 06/30/2017 omeprazole (PRILOSEC ) 20 MG capsule Encounter Details Date Type Department Care Team Description 06/30/2017 Refill [facility] No Refill ( omeprazole Practice Primary/Referring, (PRILOSEC) 20 MG capsule) [address] [place], [place] [address] Social History Tobacco Use [...] hour before a meal. (changed) Powered by ZangZing, Reference: [id number], 06/30/2017 9:09:16 AM CDT, Hector: WYLIE RN ([id number]) documented in this encounter Plan of Treatment Not on filedocumented as of this encounter Visit Diagnoses Not on filedocumented in this encounter Care Teams Barn Hand Relationship Specialty Start Date End Date Briana Vazquez PA-C PCP - General Physician Wax Pattern Repairer 06/30/17 10/03/19 [address] [place] [address] documented as of this encounter
--- OUTSIDE RECORDS SUMMARY | 2022-02-09 09:06 | XMS_ITS | Encounter Summary ---
:1965 Author Organization [employer] Address [address], [place] [address] Care Team Providers Name Role Phone No Primary/Referring, Phy Primary Care Provider Unavailable Encounter Details Date Type Department Care Team Description 05/03/2017 [place] [address] [place], [place] [address] Social History Tobacco Use [...] AM R esults for this 12 HOUR HAZARDOUS MATERIALS HANDLER procedure are i n the results section. HGB A1C Routine 05/03/2017 10:23 AM Results for this HAZARDOUS MATERIALS HANDLER procedure are i n the results section. GLUCOSE - FASTING > Routine 05/03/2017 10:23 AM R esults for this 8 HRS FASTING HAZARDOUS MATERIALS HANDLER procedure are in the results section. documented in this encounter Results (ABNORMAL) Lipid Panel, Fast > 12 Hour (05/03/2017 10:23 AM HAZARDOUS MATERIALS HANDLER) [facility] Method Time Signature Hours Fasting 12 hours [...] / Volume Laterality 05/03/2017 10:23 05/03/2017 AM HAZARDOUS MATERIALS HANDLER 10:57 AM HAZARDOUS MATERIALS HANDLER Narrative [facility] - 05/03/2017 3:[address] Performed at [facility], [address] [place] [address] ??[phone] Coretta Hawkins APRN, CNP LAB_1 Performing Organization Address [facility] Phon e Number [facility] [phone] Glucose - Fasting > 8 Hrs Fasting (05/03/2017 10:23 AM HAZARDOUS MATERIALS HANDLER) P athologist Signature Hours Fasting 12 hours [facility] Glucose 95 70 - 100 [facility] mg/dl [facility]ATOR[facility] Specimen Anatomical Collection Method Collection Time Receive d Time (Source) Location / / Volume Laterality 05/03/2017 10:23 05/03/2017 AM HAZARDOUS MATERIALS HANDLER 10:57 AM HAZARDOUS MATERIALS HANDLER Narrative [facility] - 05/03/2017 3:[address] Performed at [facility], [address] [place] [address] ??[id number] Coretta Hawkins APRN, CNP LAB_1 Performing Organization Address [facility] Phon e Number [facility] [phone] Hgb A1c (05/03/2017 10:23 AM HAZARDOUS MATERIALS HANDLER) P athologist Signature Hgb A1c 4.8 4.3 - 5.6 % [facility] Specimen Anatomical Collection Method Collection Time Receive d Time (Source) Location / / Volume Laterality 05/03/2017 10:23 05/03/2017 AM HAZARDOUS MATERIALS HANDLER 10:57 AM HAZARDOUS MATERIALS HANDLER Narrative [facility] - 05/03/2017 4:[address] Performed at [address] ??[address] Coretta Hawkins APRN, CNP LAB_1 Performing Organization Address [facility] Phon e Number [facility] [phone] documented in this encounter Visit Diagnoses Not on filedocumented in this encounter Care Teams Extension Associate Relationship Specialty Start Date End Date No Primary/Referring, Phy PCP - General 04/29/17 documented as of this encounter
--- OUTSIDE RECORDS SUMMARY | 2022-02-09 09:06 | XMS_ITS | Encounter Summary ---
:1965 Author Organization [facility] Address [address], [place] [address] Care Team Providers Name Role Phone Briana Vazquez PA-C Primary Care Provider Reason for Visit Reason Comments Refill diclofenac (VOLTAREN) 50 MG enteric coated tablet [Pharmacy Med Name: Diclofenac Sodium Oral Table t Delayed Release 50 MG] Encounter Details Date Type Department Care Team Description 06/28/2017 Refill [facility] Camilo Bullock MD Refill (diclofenac Practice [address] (VOLTAREN) 50 MG enteric [address] [place], [place] coated tablet [Pharmacy [place], [place] [address] Med Name: Diclofenac [phone] (Wo rk) Sodium Oral Tablet Delayed R [...] CDT Further Assistance Needed on Refill from Press Shop Supervisor Patient is overdue for Lab(s). Last qualifying [...] HGB: 14.4 g/dL on 09/10/2015 Powered by Springbuk, Reference: [id number], 06/28/2017 6:27:37 PM CDT, Pool: WYLIE RN ([id number]) documented in this encounter Plan of Treatment Not on filedocumented as of this encounter Visit Diagnoses Not on filedocumented in this encounter Care Teams Building Admin Relationship Specialty Start Date End Date Briana Vazquez PA-C PCP - General Physician Test Driller 06/30/17 10/03/19 [address] [place] [address] documented as of this encounter
--- OUTSIDE RECORDS SUMMARY | 2022-02-09 09:06 | XMS_ITS | Encounter Summary ---
:1965 Author Organization [facility] Address [address] [address] Care Team Providers Name Role Phone Briana Cabrera PA-C Primary Care Provider Reason for Visit Reason Comments Refill diclofenac (VOLTAREN) 50 MG enteric coated tablet [Pharmacy Med Name: Diclofenac Sodium Oral Table t Delayed Release 50 MG] Encounter Details Date Type Department Care Team Description 11/09/2017 Refill [facility] Briana Cabrera, Ref ill (diclofenac Practice ARLET (VOLTAREN) 50 MG enteric [address] [place] [address] coated tablet [Pharmacy [place], [place] [address] [place], [place] Med Name: Diclofenac [phone] [address] Sodium Oral Tablet [phone] (Wo rk) Delayed Release 50 MG]) Social [...] check) Last qualifying visit: 05/27/2017 (in [facility]) Next scheduled visit: None Last ordered by BRIANA CABRERA: 07/01/2017 (131 days ago) QTY: 180, Refills: 0, Sig: take one tablet by mouth twice daily (unchanged) Cr: 0.89 mg/dL on 05/27/2017 HGB: 15.1 g/dL on 07/02/2017 Powered by FOLUP, Reference: [id number], 11/09/2017 11:20:52 AM CDT, Pool: WYLIE RN ([id number]) documented in this encounter Plan of Treatment Not on filedocumented as of this encounter Visit Diagnoses Not on filedocumented in this encounter Care Teams Lay Out Drafter Relationship Specialty Start Date End Date Briana Cabrera PAAshleyC PCP - General Physician Caustic Preparer 06/30/17 10/03/19 [address] [place] [address] documented as of this encounter
--- OUTSIDE RECORDS SUMMARY | 2022-02-09 09:06 | XMS_ITS | Encounter Summary ---
:[address] [facility] Address [address] [address] Care Team Providers Name Role Phone No Primary/Referring, Phy Primary Care Provider Unavailable Reason for Referral Procedure/Equipment (Routine) - Closed Specialty Diagnoses / Procedures Referred By Contact Refer red To Contact Diagnoses Encounter for screening colonoscopy Briaan Vazquez PA-C [address] [place], [place] [address] Referral ID Status Reason Start Date Expiration Date Visits Requ ested Visits Authorized [id number] Closed 05/27/2017 08/26/2018 1 1 Scheduling Instructions [...] Diagnoses Essential hypertension (HRC) Briana Vazquez PA-C [address] [place], [place] [address] Referral ID Status Reason Start Date Expiration Date Visits Requ ested Visits Authorized [id number] Closed 05/27/2017 08/26/2018 1 1 Scheduling Instructions Your provider has recommended an appoint ment with a [facility] nurse. A denture technician will contact you within the next 3 busin ess days to assist you in setting up this appointment. Reason for Visit Reason Comments FOLLOW-UP,LAB FOLLOW-UP,BP Health Maintenance Communication Health Maintanence Declined flu Consult/Transfer Care (Routine) - Closed Specialty Diagnoses / Procedures Referred By Contact Refer red To Contact Diagnoses Encounter for long-term (current) [place] [address] [place], [place] [address] Referral ID Status Reason Start Date Expiration Date Visits Requ ested Visits Authorized [id number] Closed 12/30/2016 01/30/2017 1 1 Encounter Details Date Type Department Care Team Description 05/27/2017 Office Visit [facility] Briana Vazquez, Shade ential hypertension (Primary Dx); Practice [facility] Hyperlipidemia with target LDL less than 130; [address] [facility] [address] [facility] Screening for viral disease; [place], [place] Chronic low back pain, unspecified back pain laterality, with sciatica presence unspecified; [id number] Urinary urgency; [phone] Encounter for s creening colonoscopy; (Work) Seborrheic dermatitis; [phone] Bipolar affecti ve disorder, remission status unspecified ([facility]) (Fax) Social History Tobacco Use Types Packs/Day [...] Essential hypertension (HRC) - NURSE APPOINTMENT ADULT/PEDS [BTC225] - lisinopril (ZESTRIL) 10 MG tablet; Take [...] Referral Routine Essential hypertension Ordered: 05/27/2017 ADULT/PEDS [[id number]] Colonoscopy-Preventativ Referral Routine Encounter for scr eening Ordered: 05/27/2017 e colonoscopy documented as of this encounter Results (ABNORMAL) Lipid Panel and Direct LDL(If Needed) (12/10/2017 10:23 AM CDT) [facility] Method Time Signature Hours Fasting 12 [...] 12/10/2017 3:48 PM C DT Performed at [facility], [address] [place] [id number] Briana Vazquez PA-C LAB_1 Performing Organization Address City/State/ZIP Code Phon e Number [facility] [phone] HIV 1/2 Ag/Ab 4th Generation (05/27/2017 2:42 PM CDT) [facility] Method Time Signature HIV 1/2 AG/AB Negative NEGNR [facility] 4thGEN (Non LABORATORIES Reactive) Comment: HIV-1 p24 Ag and HIV-1/HIV-2 Ab not detected. Specimen Anatomical Collection Method Collection Time Receive d Time (Source) Location / / Volume Laterality 05/27/2017 2:42 PM 8 2:44 CDT PM CDT Narrative [facility] - 05/27/2017 7:17 PM C DT Performed at [address] ??[address] Briana Vazquez PA-C LAB_1 Performing Organization Address [facility] Phon e Number [facility] [phone] Hepatitis C Antibody, with Reflex (05/27/2017 2:42 PM CDT) [facility] Method Time Signature Anti-HCV Negative (Non NEGNR [facility] Reactive) LABORATORIES Comment: Antibodies to HCV not detected. Does not exclude the possibility of exposure to HCV. Specimen Anatomical Collection Method Collection Time Receive d Time (Source) Location / / Volume Laterality 05/27/2017 2:42 PM 8 2:44 CDT PM CDT Narrative [facility] - 05/27/2017 6:44 PM C DT Performed at [address] ??[address] Briana Vazquez PA-C LAB_1 Performing Organization Address City/[facility] Phon e Number [facility] [phone] Creatinine / GFR (05/27/2017 2:42 PM CDT) [facility] Creatinine 0.89 0.73 - [facility] 1.18 mg/dl LAB[facility]ATORIES GFR, Estimated >60 >60 [facility] ml/min/1.7 LAB[facility]ATORIES 3m2 GFR, Est., If >60 >60 [facility] Black ml/min/1.7 LABORATORIES 3m2 Specimen Anatomical Collection Method Collection Time Receive d Time (Source) Location / / Volume Laterality 05/27/2017 2:42 PM 8 2:44 CDT PM CDT Narrative [facility] - 05/27/2017 6:23 PM C DT Performed at [facility], [address] [place] [id number] Briana Vazquez PA-C LAB_1 Performing Organization Address [facility]/ZIP [facility] Phon e Number [facility] [phone] Potassium (05/27/2017 2:42 PM CDT) athologist Signature Potassium 4.5 3.5 - 5.1 [facility] mmol/L Specimen Anatomical Collection Method Collection Time Receive d Time (Source) Location / / Volume Laterality 05/27/2017 2:42 PM 8 2:44 CDT PM CDT Narrative [facility] - 05/27/2017 6:23 PM C DT Performed at [address] ??[address] Briana Vazquez PA-C LAB_1 Performing Organization Address City/[facility] Phon e Number [facility] [phone] documented in this encounter Visit Diagnoses Diagnosis [...] hyperlipidemia documented in this encounter Care Teams Nickel Plant Operator Relationship Specialty Start Date End Date No Primary/Referring, Phy PCP - General 04/29/17 documented as of this encounter
--- OUTSIDE RECORDS SUMMARY | 2022-02-09 09:06 | XMS_ITS | Encounter Summary ---
:1965 Author Organization [facility] Address [address], [place] [address] Care Team Providers Name Role Phone Briana Vazquez PA-C Primary Care Provider Encounter Details Date Type Department Care Team Description 07/02/2017 Lab Visit [facility] Encounter for long-term [address] [facility] (current) use of [place], [place] [address] medications [phone] Social History Tobacco Use Types Packs/Day Years [...] 07/02/2017 6:32 PM C DT Performed at [address] [place], [place] ??[address] Briana Vazquez PA-C LAB_1 Performing Organization Address City/State/[facility] Code Phon e Number [facility] [phone] documented in this encounter Visit Diagnoses Diagnosis Encounter for long-term (current) use of medications Encounter for long-term (current) use of other medications documented in this encounter Care Teams Esl Teacher Relationship Specialty Start Date End Date Briana Vazquez PA-C PCP - General Physician Oncology Transplant Network Manager 06/30/17 10/03/19 [address] [place] [address] documented as of this encounter
--- OUTSIDE RECORDS SUMMARY | 2022-02-09 09:06 | XMS_ITS | Encounter Summary ---
:1965 Author Organization [facility] Address [address] [place] [address] Care Team Providers Name Role Phone Briana Vazquez PA-C Primary Care Provider Reason for Visit Reason Comments Problem Focused Exam Lost filling Encounter Details Date Type Department Care Team Description 12/09/2017 Office Visit [facility] Rosa Childress P roblem Focused Exam Dentistry DDS (Lost filling) [address] [place] [address] [phone] Social History Tobacco Use Types Packs/Day Years [...] a longer time may requireredoing the entire tenriism. We will contact you when it is [...] feeling of movement or looseness on the tenriism. Sensitivity to sweet foods. A peculiar taste from the tenriism site. Breakage of a piece of material from the tenriism. We have done our best to provide [...] with pt to re do the filing/ [place], Pt gave consent for a filling recommended [...] Anesthesia delivered by Rosa Childress DDS AMALGAM SABIANISM Prepared #19 with complete caries removal and complete removal of the existing tenriism Isolation with high speed suction, cotton rolls [...] this visit ??? LIMITED ORAL EVALUATION ??? [id number] ??? 19 AMALGAM-3 SURFACE --End of Note-- documented in this encounter Plan of Treatment Not on filedocumented as of this encounter Procedures Procedure Name Priority Date/Time Associated Diagnosis Comme nts 19 AMALGAM-3 Routine 12/09/2017 2:59 PM CDT Defective dent al SURFACE tenriism 8 EXISTING ROOT CANAL Routine 03/20/2009 12:00 AM TREATMENT METEOROLOGY PROFESSOR 6 EXISTING BRIDGE - Routine 03/20/2009 12:00 AM PFM METEOROLOGY PROFESSOR 7 EXISTING BRIDGE - Routine 03/20/2009 12:00 AM PFM METEOROLOGY PROFESSOR 8 EXISTING BRIDGE - Routine 03/20/2009 12:00 AM PFM METEOROLOGY PROFESSOR 28 EXISTING PFM CROWN Routine 03/20/2009 12:00 AM METEOROLOGY PROFESSOR 30 MOD EXISTING Routine 03/20/2009 12:00 AM COMPOSITE FILLING METEOROLOGY PROFESSOR 11 F EXISTING Routine 03/20/2009 12:00 AM COMPOSITE FILLING METEOROLOGY PROFESSOR 5 MOD EXISTING Routine 03/20/2009 12:00 AM COMPOSITE FILLING METEOROLOGY PROFESSOR 20 O EXISTING Routine 03/20/2009 12:00 AM COMPOSITE FILLING METEOROLOGY PROFESSOR 9 F EXISTING COMPOSITE Routine 03/20/2009 12:00 AM FILLING METEOROLOGY PROFESSOR 21 MB EXISTING Routine 03/20/2009 12:00 AM COMPOSITE FILLING METEOROLOGY PROFESSOR 29 MO EXISTING Routine 03/20/2009 12:00 AM COMPOSITE FILLING METEOROLOGY PROFESSOR 13 O EXISTING AMALGAM Routine 03/20/2009 12:00 AM FILLING METEOROLOGY PROFESSOR 4 L EXISTING AMALGAM Routine 03/20/2009 12:00 AM FILLING METEOROLOGY PROFESSOR 12 O EXISTING AMALGAM Routine 03/20/2009 12:00 AM FILLING METEOROLOGY PROFESSOR 14 L EXISTING AMALGAM Routine 03/20/2009 12:00 AM FILLING METEOROLOGY PROFESSOR 14 O EXISTING AMALGAM Routine 03/20/2009 12:00 AM FILLING METEOROLOGY PROFESSOR 18 O EXISTING AMALGAM Routine 03/20/2009 12:00 AM FILLING METEOROLOGY PROFESSOR 19 O EXISTING AMALGAM Routine 03/20/2009 12:00 AM FILLING METEOROLOGY PROFESSOR 31 O EXISTING AMALGAM Routine 03/20/2009 12:00 AM FILLING METEOROLOGY PROFESSOR documented in this encounter Visit Diagnoses Diagnosis Defective dental tenriism - Primary Unspecified unsatisfactory tenriism o f tooth Localized gingival recession Gingival recession, localized Periodontitis, apical, suppurative Periapical abscess without sinus Fractured dental tenriism with loss o f material Fractured dental restorative material wi th loss of material Tooth fracture Open wound of tooth (broken) (fractured) (due to trauma), without mention of complication documented in this encounter Care Teams Fireproof Door Assembler Relationship Specialty Start Date End Date Briana Vazquez PA-C PCP - General Physician Gis Manager 06/30/17 10/03/19 [address] [place] [address] documented as of this encounter
--- OUTSIDE RECORDS SUMMARY | 2022-02-09 09:06 | XMS_ITS | Encounter Summary ---
:1965 Author Organization [facility] Address [address] [place] [address] Care Team Providers Name Role Phone No Primary/ReferringOsiel Primary Care Provider Unavailable Encounter Details Date Type Department Care Team Description 04/29/2017 Notes/Orders Security Contact Coretta Hawkins High risk medication use A, DEPARTMENT STORE SALESPERSON, CHERRY CUTTER (Primary Dx) [address] [place] [address] (Wo rk) Social History Tobacco Use Types [...] as of this encounter Visit Diagnoses Diagnosis High risk medication use - Primary Encounter for long-term (current) use of other medications documented in this encounter Care Teams Lay Up Operator Relationship Specialty Start Date End Date No Primary/ReferringOsiel PCP - General 04/29/17 documented as of this encounter
--- OUTSIDE RECORDS SUMMARY | 2022-02-09 09:07 | XMS_ITS | Encounter Summary ---
:1965 Author Organization [facility] Address [address] [place] [address] Care Team Providers Name Role Phone Yaneth Dodd MD Primary Care Provider Reason for Visit Reason Comments Refill diclofenac (VOLTAREN) 50 MG enteric coated tablet [Pharmacy Med Name: Diclofenac Sodium Oral Table t Delayed Release 50 MG] Encounter Details Date Type Department Care Team Description 03/05/2017 Refill [facility] Yaneth Dodd R efill (diclofenac Practice (VOLTAREN) 50 MG enteric [address] [place] [address] coated tablet [Pharmacy [place], [place] [address] [place], [place] Med Name: Diclofenac [phone] [address] Sodium Oral Tablet [phone] (Wo rk) Delayed Release 50 MG]) Social [...] - 03/17/2017 2:24 PM CST Letter sent R PACKER AND SORTER Camilo Blulock MD - 03/17/2017 12:33 PM CST Please send letter informing patient that prescription was refilled, but that he is overdue for labsto monitor his blood pressure medication and needs to establish care with a new provider. [employer] PACKER [employer] SORTER Inocencia Cherry - 03/17/2017 11:41 AM CST Medication Refill - Overdue Visit Called patient, was: Unable to reach patient 2nd call attempted. Clinician will need to review refill request. Inocencia Cherry Please route to: (HP) Care Team Pool/ (PN) Clinician no pcp will route to doc of day. [employer] PACKER [employer] SORTER Inocencia Cherry - 03/11/2017 9:57 AM CST Medication Refill - Overdue Visit Called patient, was: Unable to reach patient 1st call attempted. Left message to call back. Inocencia Cherry R PACKER AND SORTER Jessica Baez RN - 03/09/2017 11:30 AM CST Further Assistance Needed on Refill from Renal Dietitian Patient is overdue for Office visit and [...] Team Hector Baez RN 03/09/2017, 11:30 AM R PACKER AND SORTER Interface, Out Clickable Query - 03/05/2017 10:32 AM CST diclofenac [...] HGB: 14.4 g/dL on 09/10/2015 Powered by [employer], Reference: [id number], 03/05/2017 10:32:44 AM Hector C[place]: WYLIE RN ([id number]) R PACKER [employer] SORTER documented in this encounter Plan of Treatment Not on filedocumented as of this encounter Visit Diagnoses Not on filedocumented in this encounter Care Teams Board Certified Orthodontist Relationship Specialty Start Date End Date Yaneth Dodd MD PCP - General 08/01/09 04/28/17 [address] [place] [address] documented as of this encounter
--- OUTSIDE RECORDS SUMMARY | 2022-02-09 09:07 | XMS_ITS | Encounter Summary ---
:1965 Author Organization [facility] Address [address], [place] [address] Care Team Providers Name Role Phone Yaneth Dodd MD Primary Care Provider Reason for Visit Reason Onset Date Comments Refill 09/09/2016 gabapentin (NEURONTI N) 600 MG capsule Encounter Details Date Type Department Care Team Description 09/09/2016 Refill [facility] Yaneth Dodd R efmorelia (gabapentin Practice (NEURONTIN) [address] [facility] [address] capsule) [place], [place] [address] [place], [place] [phone] (Wo rk) Social History Tobacco Use Types [...] 01/31/2016 by BRITTNY LIMA), Sig: Powered by [employer], Reference: [id number], 09/09/2016 12:58:41 PM CDT, Pool: AV REFILL LAVERN ([id number]) Yulissa Syed - 09/09/2016 12:56 PM CDT Refill request: Medication: gabapentin (NEURONTIN) 600 MG capsule Sig: TAKE 1 CAP BY MOUTH 3 TIMES A DAY Qty:90 Last Refill: 07/29/16 Balance Engineer/Appt Center: Was the pharmacy entered into the Preferred Pharmacy field? Yes documented in this encounter Plan of Treatment Not on filedocumented as of this encounter Visit Diagnoses Not on filedocumented in this encounter Care Teams Agricultural Production Engineer Relationship Specialty Start Date End Date Yaneth Dodd MD PCP - General 08/01/09 04/28/17 [address] [place] [address] documented as of this encounter
--- OUTSIDE RECORDS SUMMARY | 2022-02-09 09:07 | XMS_ITS | Encounter Summary ---
:1965 Author Organization [facility] Address [address], [place] [address] Care Team Providers Name Role Phone Yaneth Dodd MD Primary Care Provider Reason for Referral Consult/Transfer Care (Routine) - Closed Specialty Diagnoses / Procedures Referred By Contact Refer [place] [address] [place], [place] [address] Referral ID Status Reason Start Date Expiration Date Visits Requ ested Visits Authorized [id number] Closed 01/31/2016 05/01/2017 1 1 Scheduling Instructions Your provider [facility] You may call [phone] to schedule your appoi ntment. If you prefer, a material yard clerk will contact you within the next 3 business d ays to assist you in setting up this appointment. We suggest you call your [facility] insurance company about your coverage and benefits for this appointment. HANDISING COORDINATOR Reason for Visit Reason Comments MEDICATION CHECK Encounter Details Date Type Department Care Team Description 01/31/2016 Office Visit [facility] Yaneth Dodd rmal drug screen (Primary Dx); Criselda Crowe MD Urinary urgency [address] [facility] [address] [place] [address] [phone] Social History Tobacco Use Types Packs/Day Years [...] Comments Blood Pressure 118/64 01/31/2016 9:43 AM MERCHANDISING COORDINATOR Pulse 81 01/31/2016 9:43 AM MERCHANDISING COORDINATOR Temperature - - Respiratory Rate 18 01/31/2016 9:43 AM MERCHANDISING COORDINATOR Oxygen Saturation - - Inhaled Oxygen Concentration - - Weight 93 kg (205 lb) 01/31/2016 9:43 AM MERCHANDISING COORDINATOR Height - - Body Mass Index 27.05 [...] his sertraline. Urinary urgency. Plan: As above. HANDISING COORDINATOR documented in this encounter Plan of Treatment Scheduled Referrals Name Type Priority Associated Diagnoses Order S [facility] Urology Consult-Adults Referral Routine Order ed: 01/31/2016 documented as of this encounter Results (ABNORMAL) Urine Drug Comprehensive Panel (with Confirmation) (01/31/2016 10:05 AM MERCHANDISING COORDINATOR) Component Value Ref Test Analysis Performed At [facility] gist Range Method Time Signature Amphetamines [...] Urine specimen 01/31/2016 10:05 6 (specimen) AM MERCHANDISING COORDINATOR 10:07 AM MERCHANDISING COORDINATOR Narrative [facility] - 02/04/2016 12:05 PM MERCHANDISING COORDINATOR Performed at [facility] , [address] [place] [address] Yaneth Dodd MD LAB_1 Performing Organization Address City/State/[facility] Code Phon e Number [facility] [phone] documented in this encounter Visit Diagnoses Diagnosis Abnormal drug screen - Primary Nonspecific abnormal toxicological findi ngs Urinary urgency Urgency of urination Abnormal drug screen Nonspecific abnormal toxicological findi ngs documented in this encounter Care Teams Sql Server Developer Relationship Specialty Start Date End Date Yaneth Dodd MD PCP - General 08/01/09 04/28/17 [address] [place] [address] documented as of this encounter
--- OUTSIDE RECORDS SUMMARY | 2022-02-09 09:07 | XMS_ITS | Encounter Summary ---
:1965 Author Organization [facility] Address [address] [place] [address] Care Team Providers Name Role Phone Yaneth Dodd MD Primary Care Provider Reason for Visit Reason Comments BOIL Encounter Details Date Type Department Care Team Description 10/10/2016 Office Visit [facility] Epiderm oid cyst ([facility] Dx) [address] [place], [place] [address] Social History Tobacco Use [...] Instructions Your Care Instructions An epidermoid (say ty-tmz-NSS-moyd) cyst is a lump just under the [...] can you learn more? 1. Go to [employer] or crobo[employer]. 2. Enter S615 in the search box. Current as of: December 19, 2015 Content Version: 11.3 ?? [phone] [employer], [employer]. Wound Check: Care Instructions Your Care Instructions [...] your doctor if you can take an ajuv-kub-ifpiruq medicine. ?? If your doctor prescribed antibiotics, [...] can you learn more? 1. Go to [employer] or crobo/[employer]. 2. Enter P342 in the search box. Current as of: May 25, 2016 Content Version: 11.3 ?? [phone] [employer]. 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 Smoking status: [...] cyst documented in this encounter Care Teams Shoe Caser Relationship Specialty Start Date End Date Yaneth Dodd MD PCP - General 08/01/09 04/28/17 [address] [place] [address] documented as of this encounter
--- OUTSIDE RECORDS SUMMARY | 2022-02-09 09:07 | XMS_ITS | Encounter Summary ---
:1965 Author Organization [facility] Address [address] [place] [address] Care Team Providers Name Role Phone Yaneth Dodd MD Primary Care Provider Reason for Visit Reason Comments Refill lisinopril (ZESTRIL) 10 MG t ablet [Pharmacy Med Name: Lisinopril Oral Tablet 10 MG] Encounter Details Date Type Department Care Team Description 04/03/2016 Refill [facility] Janet Urena, Re fill (lisinopril Practice [employer], ENVIRONMENTAL EMERGENCIES PLANNER (ZESTRIL) 10 MG tablet [address] [facility] [address] [Pharmacy Med Name: [place], [place] [address] [place], [place] Lisinopril Oral Tablet [phone] [address] 10 MG]) Social History Tobacco Use Types [...] CST per standing order Malia Correia RN RNS CLERK Interface, Out Surescripts Prov Query - 04/03/2016 [...] K: 3.9 mEq/L on 09/10/2015 Powered by [employer], Reference: [id number], 04/03/2016 5:55:30 PM JACOBO, Pool: FP REFILL RN ([id number]) RNS CLERK documented in this encounter Plan of Treatment Not on filedocumented as of this encounter Visit Diagnoses Not on filedocumented in this encounter Care Teams Polisher Hand Relationship Specialty Start Date End Date Yaneth Dodd MD PCP - General 08/01/09 04/28/17 [address] [place] [address] documented as of this encounter
--- OUTSIDE RECORDS SUMMARY | 2022-02-09 09:07 | XMS_ITS | Encounter Summary ---
:1965 Author [facility] Address [address], [place] [address] Care Team Providers Name Role Phone Yaneth Dodd MD Primary Care Provider Encounter Details Date Type Department Care Team Description 02/26/2016 Orders Only None Social History Tobacco Use Types Packs/Day Years [...] Name Priority Date/Time Associated Diagnosis Comme nts UROLOGY BLADDER 02/26/2016 12:00 AM Resul ts for this SCAN BUDGET ANALYST procedure are i n the results section. documented in this encounter Results UROLOGY BLADDER SCAN (02/26/2016 12:00 AM BUDGET ANALYST) Specimen (Source) Anatomical Location Collection Method / Collectio n Time Received Time / Laterality Volume 02/26/2016 Narrative This result has an attachment that is no t available. Provider Urologic Physcians DUMMY/OTHER/AR documented in this encounter Visit Diagnoses Not on filedocumented in this encounter Care Teams Commercial Carpenter Relationship Specialty Start Date End Date Yaneth Dodd MD PCP - General 08/01/09 04/28/17 [address] [place] [address] documented as of this encounter
--- OUTSIDE RECORDS SUMMARY | 2022-02-09 09:07 | XMS_ITS | Encounter Summary ---
:1965 Author Organization [facility] Address [address] [place] [address] Care Team Providers Name Role Phone Yaneth Dodd MD Primary Care Provider Reason for Visit Reason Comments Medication Questions Encounter Details Date Type Department Care Team Description 01/28/2016 Telephone [facility] Yaneth Dodd M edication Questions Practice [address] [place] [address] [place], [place] [phone] (Wo rk) Social History Tobacco Use Types [...] MD. Renetta Perales CMA 01/28/2016, 3:05 PM INSPECTOR Yaneth Dodd MD - 01/28/2016 2:42 PM CST Those drugs should not cause a positive benzo result. Would recommend he have a tox screen repeated through our lab as he had one in September and it was negative. INSPECTOR Kristin Saavedra - 01/28/2016 12:50 PM CST Pt called is also on gabapenton and seroquel as well as the other in chart INSPECTOR Inocencia Cherry - 01/28/2016 12:31 PM CST Patient can up positive for benzoles on drug test at work. Patient would like to know if his medications would be causing the drug test to come up positive. INSPECTOR documented in this encounter Plan of Treatment Not on filedocumented as of this encounter Visit Diagnoses Not on filedocumented in this encounter Care Teams Eyeglass Fitter Relationship Specialty Start Date End Date Yaneth Dodd MD PCP - General 08/01/09 04/28/17 [address] [place] [address] documented as of this encounter
--- OUTSIDE RECORDS SUMMARY | 2022-02-09 09:07 | XMS_ITS | Encounter Summary ---
:1965 Author Organization [facility] Address [address], [place] [address] Care Team Providers Name Role Phone Yaneth Strong MD Primary Care Provider Reason for Visit Reason Comments Refill omeprazole (PRILOSEC) 20 MG capsule [Pharmacy Med Name: Omeprazole Oral Capsule Delayed Release 20 M G] Encounter Details Date Type Department Care Team Description 03/05/2017 Refill [facility] Yaneth Strong R efill (omeprazole Practice (PRILOSEC) [address] [facility] [address] [Pharmacy Med Name: [place], [place] [address] [place], [place] Omeprazole Oral Capsule [phone] Delayed Release 20 MG]) [phone] (Wo rk) Social History Tobacco Use Types [...] a meal. (changed but equivalent) Powered by Subtextual, Reference: [id number], 03/05/2017 10:32:44 AM Hector CENTENO: WYLIE RN ([id number]) BO documented in this encounter Plan of Treatment Not on filedocumented as of this encounter Visit Diagnoses Not on filedocumented in this encounter Care Teams Early Childhood Educator Aide Relationship Specialty Start Date End Date Yaneth Strong MD PCP - General 08/01/09 04/28/17 [address] [place] [address] documented as of this encounter
--- OUTSIDE RECORDS SUMMARY | 2022-02-09 09:07 | XMS_ITS | Encounter Summary ---
:1965 Author Organization [facility] Address [address], [place] [address] Care Team Providers Name Role Phone Yaneth Strong MD Primary Care Provider Reason for Visit Reason Comments Refill tolterodine (DETROL) 2 MG ta blet [Pharmacy Med Name: Tolterodine Tartrate Oral Tablet 2 MG] Encounter Details Date Type Department Care Team Description 03/05/2017 Refill [facility] Yaneth Strong R effam (tolterodine Practice (DETROL) 2 MG tablet [address]106 [facility] [address] [facility] [Pharmacy Med Name: [place], [place] [address] [place], [place] Tolterodine Tartrate [phone] Oral Tablet 2 MG]) [phone] (Wo rk) Social History Tobacco Use Types [...] CST per standing order Ashley Holly RN WORKER DAIRY Interface, Out Surescripts Prov Query - 03/05/2017 [...] by mouth twice daily (changed) Powered by EZ-Ticket, Reference: [id number], 03/05/2017 10:32:44 AM Hector CENTENO: ROB REFFAM PUCKETT ([id number]) WORKER DAIRY documented in this encounter Plan of Treatment Not on filedocumented as of this encounter Visit Diagnoses Not on filedocumented in this encounter Care Teams Senior Ui Designer Relationship Specialty Start Date End Date Yaneth Strong MD PCP - General 08/01/09 04/28/17 [address] [place] [address] documented as of this encounter
--- OUTSIDE RECORDS SUMMARY | 2022-02-09 09:07 | XMS_ITS | Encounter Summary ---
:1965 Author Organization [facility] Address [address] [place] [address] Care Team Providers Name Role Phone Briana Vazquez PA-C Primary Care Provider Encounter Details Date Type Department Care Team Description 07/29/2016 Refill Order [facility] Chris Dodd MD Practice [id number] [place] [address] [place] [address] [place] [address] [phone] Social History Tobacco Use Types Packs/Day Years [...] medications documented in this encounter Care Teams Street Photographer Relationship Specialty Start Date End Date Briana Vazquez PA-C PCP - General Physician Ground Transportation Operator 11/29/19 [address] [place] [address] documented as of this encounter
--- OUTSIDE RECORDS SUMMARY | 2022-02-09 09:07 | XMS_ITS | Encounter Summary ---
:1965 Author Organization [facility] Address [address] [place] [address] Care Team Providers Name Role Phone Yaneth Dodd MD Primary Care Provider Reason for Visit Reason Comments FOLLOW-UP, TEST RESULTS Encounter Details Date Type Department Care Team Description 02/04/[address] [facility] Yaneth Dodd F OLLOW-UP, TEST RESULTS Practice [address] [address] [place], [place] [phone] [address] (Wo rk) Social History Tobacco Use Types [...] sent Marlys Ordaz LPN 02/04/2016, 3:01 PM UTING MACHINE OPERATOR Marlys Ordaz LPN - 02/04/2016 2:57 PM CST ----- Message from Yaneth Dodd MD sent at 02/04/2016 12:30 PM COMPUTING MACHINE OPERATOR ----- Call pt and let him know his urine drug screen showed no benzodiazepines in his system. We can print this up for him and give him a copy if needed. UTING MACHINE OPERATOR documented in this encounter Plan of Treatment Not on filedocumented as of this encounter Visit Diagnoses Not on filedocumented in this encounter Care Teams Nutritional Services Director Relationship Specialty Start Date End Date Yaneth Dodd MD PCP - General 08/01/09 04/28/17 [address] [place] [address] documented as of this encounter
--- OUTSIDE RECORDS SUMMARY | 2022-02-09 09:07 | XMS_ITS | Encounter Summary ---
:1965 Author Organization [facility] Address [address] [place] [address] Care Team Providers Name Role Phone Yaneth Dodd MD Primary Care Provider Reason for Visit Reason Comments Dental Conversion Legacy EDR to [place] convers ion Encounter Details Date Type Department Care Team Description 08/13/2016 Dental Conversion [facility] Christofer Ji , [facility] DDS [address] [facility] [address] [place], [place] [address] [place], [place] [phone] Social History Tobacco Use Types Packs/Day Years [...] update consent form & sign tx est NDED INSURANCE CLERK Interface, In Edr Dental Conversion - 03/14/2010 12:00 AM CST EDR dismissed Popup Note, entered 03/14/2010: update consent and sign tx est NDED INSURANCE CLERK Interface, In Edr Dental Conversion - 03/11/2009 12:00 AM CST EDR dismissed Popup Note, entered 03/11/2009: have pt sign tx est--fill out all forms NDED INSURANCE CLERK documented in this encounter Miscellaneous Notes Miscellaneous - Interface, In Edr Dental Conversion - 01/27/2010 12:00 AM EXTENDED INSURANCE CLERK 01/27/2010: Clinic Notes: edr date report- unscheduled tx tx from 03/19/2009 tx is not covered by ins NDED INSURANCE CLERK documented in this encounter Plan of Treatment Not on filedocumented as of this encounter Visit Diagnoses Not on filedocumented in this encounter Care Teams Miniature Set Builder Relationship Specialty Start Date End Date Yaneth Dodd MD PCP - General 08/01/09 04/28/17 [address] [place] [address] documented as of this encounter
--- OUTSIDE RECORDS SUMMARY | 2022-02-09 09:07 | XMS_ITS | Encounter Summary ---
:1965 Author Organization [facility] Address [address], [place] [address] Care Team Providers Name Role Phone Yaneth Dodd MD Primary Care Provider Reason for Visit Reason Comments Clarification Of Medication Orders gabapentin (NEURONT IN) 300 MG capsule Encounter Details Date Type Department Care Team Description 09/16/2016 Telephone [facility] Yaneth Dodd [facility] ification Of Practice MD Sebastien Medication Orders [address] [facility] [address] (gabapentin (NEURONTIN) [place], [place] [address] [place], [place] 300 MG capsule) [phone] Social History Tobacco Use Types Packs/Day Years [...] feels that it works better. Send to [facility]. Marlys Ordaz LPN - 09/17/2016 10:19 AM [...] would you like [facility] filled at our [facility] pharmacy? no [Risk Control Consultant/Appt Center: Was the pharmacy entered into the Preferred Pharmacy field? yes] Best number to reach you? [phone] Is it okay to leave detailed message on your voicemail? No - any pharmacist is ok [Risk Control Consultant/Appt Center: If this call is after 3 p.m., communicate to patient: If we are not able to get back to you by the end of the day and your symptoms worsen please contact the Careline] documented in this encounter Plan of Treatment Not on filedocumented as of this encounter Visit Diagnoses Not on filedocumented in this encounter Care Teams Skin Care Consultant Relationship Specialty Start Date End Date Yaneth Dodd MD PCP - General 08/01/09 04/28/17 [address] [place] [address] documented as of this encounter
--- OUTSIDE RECORDS SUMMARY | 2022-02-09 09:07 | XMS_ITS | Encounter Summary ---
:1965 Author Organization [facility] Address [address], [place] [address] Care Team Providers Name Role Phone Yaneth Dodd MD Primary Care Provider Reason for Visit Reason Comments FOLLOW-UP,HOSPITAL Encounter Details Date Type Department Care Team Description 09/19/2015 Telephone NE8 Tiffani Seay RN FOLLOW-UP,[address] [address] [place] [address] [phone] (Wo rk) Social History Tobacco Use Types [...] on filedocumented in this encounter Care Teams Mill Order Scheduler Relationship Specialty Start Date End Date Yaneth Dodd MD PCP - General 08/01/09 04/28/17 [address] [place] [address] documented as of this encounter
--- OUTSIDE RECORDS SUMMARY | 2022-02-09 09:07 | XMS_ITS | Encounter Summary ---
:1965 Author Organization [facility] Address [address], [place] [address] Care Team Providers Name Role Phone Yaneth Dodd MD Primary Care Provider Reason for Visit Reason Comments Refill tolterodine (DETROL) 2 MG ta blet [Pharmacy Med Name: Tolterodine Tartrate Oral Tablet 2 MG] Encounter Details Date Type Department Care Team Description 07/29/2016 Refill [facility] Yaneth Dodd R efmorelia (tolterodine Practice (DETROL) 2 MG tablet [address] [facility] [address] [facility] [Pharmacy Med Name: [place], [place] [address] [place], [place] Tolterodine Tartrate [phone] Oral Tablet 2 MG]) [phone] (Wo rk) Social History Tobacco Use Types [...] a day. (changed but equivalent) Powered by Identropy, Reference: [id number], 07/29/2016 11:26:50 AM CDT, Pool: WYLIE RN ([id number]) documented in this encounter Plan of Treatment Not on filedocumented as of this encounter Visit Diagnoses Not on filedocumented in this encounter Care Teams Long Winder Tender Relationship Specialty Start Date End Date Yaneth Dodd MD PCP - General 08/01/09 04/28/17 [address] [place] [address] documented as of this encounter
--- OUTSIDE RECORDS SUMMARY | 2022-02-09 09:07 | XMS_ITS | Encounter Summary ---
:1965 Author Organization [facility] Address [address] [place] [address] Care Team Providers Name Role Phone Yaneth Dodd MD Primary Care Provider Reason for Visit Reason Comments Consult, New Patient Consult/Transfer Care (Routine) - Closed Specialty Diagnoses / Procedures Referred By Contact Refer [place] [address] [place], [place] [address] Referral ID Status Reason Start Date Expiration Date Visits Requ ested Visits Authorized [id number] Closed 01/31/2016 05/01/2017 1 1 Encounter Details Date Type Department Care Team Description 02/26/2016 Office Visit Specialty Center Jonathan Reed, Mina gency incontinence (Primary Dx); [facility] DO Urgency of urination; [address] [facility] [place] [address] [place] [address] [phone] Social History Tobacco Use Types Packs/Day Years [...] Sign Reading Time Taken Comments Blood Pressure 123/72 02/26/2016 1:45 PM STRATEGY DIRECTOR Pulse 86 02/26/2016 1:45 PM STRATEGY DIRECTOR Temperature - - Respiratory Rate - - Oxygen Saturation - - Inhaled Oxygen Concentration - - Weight - - Height - - Body Mass Index - - documented in this encounter Patient Instructions Patient InstructionsLeyla Snowden RN - 02/26/2016 1:40 PM CST Your follow up appointment will be scheduled with one of the urology care team members. This may be one of our physician assistants or nurse practitioners. They are always in direct communication with your physician who remains responsible for your urologic care at [facility] . For Xray, CT test, and Ultrasound results, unless specifically noted, the results of these tests will be discussed at your next visit with your provider. Thank you for continuing to trust us with your care. We are your partner. Our Urology team is always striving to improve your experience with us. You may randomly be selectedto receive a survey via email, text or phone. The survey is 9 questions long and takes less than oneminutes to complete. We would greatly appreciate your feedback. Thank you! Get Cost of Care Estimates - [phone] The health insurance marketplace has changed dramatically in the last few years. Our cost of care service will provide estimates over the phone for treatments or procedures billed through [facility]. To receive a cost estimate, simply call [phone] during regular business hours. If you have insurance coverage, you will need to verify your policy of coverage with your health planby calling the number located on the back of your insurance card and talking to member services. Flomax 0.4 mg po daily Continue detrol Restrict fluids No caffienated beverages Voiding log F/u 3-4 weeks for review of voiding logs, uroflow, PVR, IPSS TEGY DIRECTOR documented in this encounter Progress Notes Jonathan Reed DO - 02/26/2016 2:19 PM CST Images from the original note were not included. Date of Service and Exam date: 02/26/2016 Assessment Encounter Diagnoses Name Primary? Urgency incontinence Yes ??? Urgency of urination ??? Urine retention 50-year-old male with urinary urgency, frequency, mild urinary retention, and large fluid intake. Discussed multifactorial etiology related to his urgency and frequency. He currently has high fluid intake secondary to dry mouth from multiple medications. We discussed that increased fluid intake will result in increased urine production specifically noting he consumes nearly 120 ounces of Gatorade daily. I recommended that he avoid caffeinated averages and reduces fluid intakes. We will have him complete a voiding diary and fluid intake log to assess his true fluid intake and urinary frequency. Additionally he does have some mild urinary retention which could be reducing his functional capacity of his bladder increasing the frequency with which he urinates. I recommended Flomax 400,000 g p.o. daily to hopefully improve emptying. We will plan on follow-up in 3-4 weeks to assess his response to therapy and fluid restriction and review his voiding and fluid logs. Plan Flomax 0.4 mg po daily Continue detrol Restrict fluids No caffienated beverages Voiding log F/u 3-4 weeks for review of voiding logs, uroflow, PVR, IPSS Please see the After Visit Summary for counseling, advice, and precautions that I gave the patient during today's visit. Subjective CC/HPI: Nicanor Alvarado is a 50 y.o. old male seen in consult for urologic evaluation and treatment of uinary urgency. LUTS Reports moderate stream, sensation of complete emptying, occasional intermittency Daytime frequency [id number]; associated urgency most days; associated incontinence 2-3 x per week Sx onset approx 6 yrs ago; managed with detrol 2 mg po daily Sx exacerbated by not eating. Nocturia x 2; not restricting fluids; denies DEVORA + barajas at time of back surgery Pt denies a history of acute urinary retention, renal failure, gross hematuria, bladder stones or recurrent urinary tract infection. Coffee x 1; energy drinks x 2 weekly; tea x 0; milk x 0, gatorade x 4 bottles x 28 oz daily UA - negative 09/2015 PVR - 124 cc PSa 0.75 ROS: 14 pts reviewed with patient, as documented on Intake Form; see HPI for pertinent positives andnegatives. His past medical history, family history, social history, medications, and allergies have been reviewed and are current in Epic. Family history of prostate cancer? No. Family history of kidney stones? No. Objective BP 123/72 mmHg Pulse 86 Constitutional: Vitals reviewed above. Pleasant mannerism and in no apparent distress. Skin: Warm and dry. No active rashes, lesions, infections noted. Neck: Symmetric, no obvious mass. Respiratory: Easily breathing on room air. Good respiratory excursion. No obvious wheezes. CV: Heart rate RRR. No JVD noted. GI: flat, soft, not distended, nontender. No obvious abdominal masses, pulsations, nor HSM. No guarding or rebound. No obvious abdominal or inguinal hernias. Musculoskeletal: No obvious spinal deformities. Moves all extremities. Neuro: Cranial nerves II-XII grossly intact. No neurological defects noted. Psych: Normal affect. Alert and oriented to person, place and time. Answers questions appropriately. Lymph: No inguinal lymphadenopathy present bilaterally. : -- No CVA tenderness bilaterally noted with percussion. -- There are no obvious inguinal hernias. -- No obvious genital skin lesions. -- Adequate meatus, no penile discharge noted. -- Testes down bilaterally and normal to palpation. -- Each vas deferens and each epididymus normal to palpation. -- Perineum is nontender to palpation. -- No external rectal masses or lesions. DEQUAN shows good sphincter tone; no obvious rectal vault masses nor nodules. -- Prostate is normal to palpation without nodules or masses and is nontender. Lab: reviewed Last UA results: Lab Results Component Value Date/Time URINE COLOR Straw 09/10/2015 01:32 PM URINE CLARITY Clear 09/10/2015 01:32 PM SP GR 1.010 11/15/2013 10:41 AM LEUK Negative 11/15/2013 10:41 AM NITR Negative 11/15/2013 10:41 AM PH 6.0 11/15/2013 10:41 AM PROT Negative 11/15/2013 10:41 AM GLUC Negative 11/15/2013 10:41 AM KET Negative 11/15/2013 10:41 AM UROB 0.2 11/15/2013 10:41 AM BILI Negative 11/15/2013 10:41 AM BLOOD Tr * 11/15/2013 10:41 AM CREATININE (mg/dl) Date Value 09/10/2015 0.75 06/17/2013 0.95 05/06/2012 1.08 No results found for: PSA Imaging: none TEGY DIRECTOR documented in this encounter Plan of Treatment Not on filedocumented as of this encounter Visit Diagnoses Diagnosis Urgency incontinence - Primary Urge incontinence Urgency of urination Urine retention Retention of urine, unspecified documented in this encounter Care Teams Tractor Trailer Mechanic Relationship Specialty Start Date End Date Yaneth Dodd MD PCP - General 08/01/09 04/28/17 [address] [place] [address] documented as of this encounter
--- OUTSIDE RECORDS SUMMARY | 2022-02-09 09:07 | XMS_ITS | Encounter Summary ---
:1965 Author Organization [facility] Address [address] [place] [address] Care Team Providers Name Role Phone Briana [...] on filedocumented in this encounter Care Teams Motorcycle Deliverer Relationship Specialty Start Date End Date Briana Vazquez PA-C PCP - General Physician Creative Perfumer 11/29/19 [address] [place], [place] [id number] documented as of this encounter
--- OUTSIDE RECORDS SUMMARY | 2022-02-09 09:07 | XMS_ITS | Encounter Summary ---
:1965 Author Organization [facility] Address [address] [place] [address] Care Team Providers Name Role Phone Yaneth Dodd MD Primary Care Provider Reason for Visit Reason Onset Date Comments Refill 12/29/2016 traZODone (DESYREL) 100 MG tablet Encounter Details Date Type Department Care Team Description 12/29/2016 Refill [facility] Yaneth Dodd R efill (traZODone Practice (DESYREL) 100 MG tablet) [address] [facility] [address] [place] [address] [place], [place] [phone] (Wo rk) Social History Tobacco Use Types [...] indications: sleep (unchanged) Age: 51 Powered by Nefsis, Reference: [id number], 12/29/2016 1:02:01 PM CDT, Pool: WYLIE RN ([id number]) documented in this encounter Plan of Treatment Not on filedocumented as of this encounter Visit Diagnoses Not on filedocumented in this encounter Care Teams Gate Keeper Relationship Specialty Start Date End Date Yaneth Dodd MD PCP - General 08/01/09 04/28/17 [address] [place] [address] documented as of this encounter
--- OUTSIDE RECORDS SUMMARY | 2022-02-09 09:07 | XMS_ITS | Encounter Summary ---
:1965 Author Organization [facility] Address [address], [place] [address] Care Team Providers Name Role Phone Briana Vazquez PA-C Primary Care Provider Reason for Referral Consult/Transfer Care (Routine) - Closed Specialty Diagnoses / Procedures Referred By Contact Refer red To Contact Diagnoses Encounter for long-term (current) [place] [address] [place], [place] [address] Referral ID Status Reason Start Date Expiration Date Visits Requ ested Visits Authorized [id number] Closed 12/30/2016 01/30/2017 1 1 Scheduling Instructions Your provider has recommended you to fol low up with your Primary Agricultural Labor Camp Manager. If you are currently seeing a [facility] provider for your primary care needs, a operating room scheduler will contact you within the ar xt 3 business days to assist you in setting up this appointment. To schedule your ap pointment you may call [phone]. We suggest you call your OnePIN about your coverage and benefits for this service. Encounter Details Date Type Department Care Team Description 12/29/2016 Refill Order [facility] Chris Dodd MD Practice [address] [facility] [address] [place] [address] [place] [address] [phone] Social History Tobacco Use Types Packs/Day Years [...] medications documented in this encounter Care Teams Sole Layer Hand Relationship Specialty Start Date End Date Briana Vazquez PA-C PCP - General Physician Leather Piece Inspector 11/29/19 [address] [place] [address] documented as of this encounter
--- OUTSIDE RECORDS SUMMARY | 2022-02-09 09:07 | XMS_ITS | Encounter Summary ---
:1965 Author Organization [employer] [facility] [facility] Address [address] [place] [address] Care Team Providers Name Role Phone Yaneth Dodd MD Primary Care Provider Reason for Visit Reason Comments Late Refill - Antidepressant Medication Encounter Details Date Type Department Care Team Description 12/31/2015 Telephone [facility] Late Refill - [facility] Antidepressant [address] [place] [address] Social History Tobacco Use Types Packs/Day Years [...] on filedocumented in this encounter Care Teams Pipe Production Worker Relationship Specialty Start Date End Date Yaneth Dodd MD PCP - General 08/01/09 04/28/17 [address] [place] [address] documented as of this encounter
--- OUTSIDE RECORDS SUMMARY | 2022-02-09 09:07 | XMS_ITS | Encounter Summary ---
:1965 Author Organization [email or web address] Address [address], [place] [address] Care Team Providers Name Role Phone Yaneth Dodd MD Primary Care Provider Encounter Details Date Type Department Care Team Description 03/05/2017 Refill Order [facility] Chris Dodd MD [address] [place] [address] [phone] Social History Tobacco Use Types Packs/Day Years [...] notified. Page Luther CMA 03/05/2017, 2:11 PM DRAWING SETTER Interface, Out Surescripts Prov Query - 03/05/2017 [...] You can schedule your appointment online at Beatsy or by calling the appointment center at the phone number listed above. Thank you for choosing [employer]. Tanna Yen RN [facility] Refill Center Nurses Powered by ManageSocial, Reference: [id number], 03/05/2017 10:32:45 AM Hector CENTENO: ROB REFILL RN ([id number]) BO documented in this encounter Plan of Treatment Not on filedocumented as of this encounter Visit Diagnoses Diagnosis Encounter for long-term (current) use of medications - Primary Encounter for long-term (current) use of other medications documented in this encounter Care Teams Bioinformatics Assistant Relationship Specialty Start Date End Date Yaneth Dodd MD PCP - General 08/01/09 04/28/17 [address] [place] [address] documented as of this encounter
--- OUTSIDE RECORDS SUMMARY | 2022-02-09 09:07 | XMS_ITS | Encounter Summary ---
:1965 Author Organization [employer] Address [address], [place] [address] Care Team Providers Name Role Phone Yaneth Dodd MD Primary Care Provider Reason for Visit Reason Comments FOLLOW-UP,HOSPITAL Encounter Details Date Type Department Care Team Description 09/20/2015 Telephone NE8 Omar Castellanos, FOLLOW-UP,[address] [place] [phone] [place] [address] (Wo rk) Social History Tobacco Use [...] on filedocumented in this encounter Care Teams Kelly Machine Operator Relationship Specialty Start Date End Date Yaneth Dodd MD PCP - General 08/01/09 04/28/17 [address] [place], [place] [address] documented as of this encounter
--- OUTSIDE RECORDS SUMMARY | 2022-02-09 09:07 | XMS_ITS | Encounter Summary ---
:1965 Author Organization [employer] Address [address] [address] Care Team Providers Name Role Phone Yaneth Dodd MD Primary Care Provider Encounter Details Date Type Department Care Team Description 01/31/2016 Lab Visit [facility] Abnormal drug screen [address] [place], [place] [address] Social History Tobacco Use [...] Yaneth Dodd MD - 02/04/2016 12:30 PM PAPER REWINDER Quick Note: Call pt and let him know his urine drug screen showed no benzodiazepines in his system. We can print this up for him and give him a copy if needed. R REWINDER documented in this encounter Plan of Treatment Not on filedocumented as of this encounter Procedures Procedure Name Priority Date/Time Associated Comments Diagnosis URINE DRUG Routine 01/31/2016 10:05 Abnormal drug Results fo r this COMPREHENSIVE PANEL AM PAPER REWINDER screen procedur e are in (WITH CONFIRMATION) the resu lts section. documented in this encounter Results (ABNORMAL) Urine Drug Comprehensive Panel (with Confirmation) (01/31/2016 10:05 AM PAPER REWINDER) Component Value Ref Test Analysis Performed At [facility] Method Time Signature Amphetamines Negative NEG [...] Urine specimen 01/31/2016 10:05 6 (specimen) AM PAPER REWINDER 10:07 AM PAPER REWINDER Narrative [facility] - 02/04/2016 12:05 PM PAPER REWINDER Performed at [facility] , [address] [place] [address] Yaneth Dodd MD LAB_1 Performing Organization Address City/State/[facility] Code Phon e Number [facility] [phone] documented in this encounter Visit Diagnoses Diagnosis Abnormal drug screen Nonspecific abnormal toxicological findi ngs documented in this encounter Care Teams Bight Maker Relationship Specialty Start Date End Date Yaneth Dodd MD PCP - General 08/01/09 04/28/17 [address] [place] [address] documented as of this encounter
--- OUTSIDE RECORDS SUMMARY | 2022-02-09 09:08 | XMS_ITS | Encounter Summary ---
:1965 Author Organization [facility] Address [address], [place] [address] Care Team Providers Name Role Phone Yaneth Dodd MD Primary Care Provider Reason for Visit Reason Comments Refill tolterodine (AKA DETROL) 2 M G tablet [Pharmacy Med Name: TOLTERODINE TARTRATE 2MG TAB] Encounter Details Date Type Department Care Team Description 09/02/2015 Refill [facility] Yaneth Dodd R efill (tolterodine (AKA Practice MD DETROL) 2 MG tablet [address] [facility] [address] [Pharmacy Med Name: [place], [place] [address] [place], [place] TOLTERODINE TARTRATE 2MG [phone] TAB]) [phone] (Wo rk) Social History Tobacco Use Types [...] two times a day. (unchanged) Powered by Fusion[employer]ds, Reference: [id number], 09/02/2015 3:57:35 AM CDT, Pool: WYLIE RN ([id number]) documented in this encounter Plan of Treatment Not on filedocumented as of this encounter Visit Diagnoses Not on filedocumented in this encounter Care Teams Acquisitions Editor Relationship Specialty Start Date End Date Yaneth Dodd MD PCP - General 08/01/09 04/28/17 [address] [place] [address] documented as of this encounter
--- OUTSIDE RECORDS SUMMARY | 2022-02-09 09:08 | XMS_ITS | Encounter Summary ---
:1965 Author Organization [facility] [facility] Address [address] [place] [address] Care Team Providers Name Role Phone Yaneth Dodd MD Primary Care Provider Reason for Visit Reason Comments Refill Encounter Details Date Type Department Care Team Description 11/18/2014 Refill [facility] Yaneth Dodd MD Refill [address] [facility] [address] [place], [place] [address] [place] [address] [phone] (Wo rk) Social History Tobacco Use Types [...] on 06/17/2013 - [age] Powered by GranData, Reference: [id number], 11/18/2014 3:35:19 AM ZIATHector: WYLIE RN ([id number]) Interface, Out Reality Digital Query - 11/18/2014 3:35 AM CDT The [...] on filedocumented in this encounter Care Teams Belt Maker Relationship Specialty Start Date End Date Yaneth Dodd MD PCP - General 08/01/09 04/28/17 [address] [place] [address] documented as of this encounter
--- OUTSIDE RECORDS SUMMARY | 2022-02-09 09:08 | XMS_ITS | Encounter Summary ---
:1965 Author Organization [employer] Address [address] [place] [address] Care Team Providers Name Role Phone Yaneth Dodd MD Primary Care Provider Reason for Visit Reason Onset Date Comments Refill 09/18/2014 Encounter Details Date Type Department Care Team Description 09/18/2014 Refill [facility] Yaneth Dodd MD Refill [address] [facility] [address] [place], [place] [address] [place] [address] [phone] (Wo rk) Social History Tobacco Use Types Packs/Day Years Used Date Smoking Tobacco: Former Cigarettes 0.5 3 Cigars Smokeless Tobacco: Never Comments: Occasional cigar Alcohol Use Standard Drinks/Week Comments Yes 0 (1 standard drink = 0.6 oz pure alcoho l) Rare Sex Assigned at Date Recorded Not on file documented as of this encounter Nursing Notes Interface, Out Surescripts Prov Query - 09/18/2014 1:27 PM CDT lisinopril (AKA ZESTRIL) 20 MG tablet - VIOLATION: Cr and K are overdue (performed over 15 months ago, required every 12 months) - PROTOCOL: Rylan Inhibitors - LAST QUALIFYING VISIT IN [facility]: 07/31/2014 - NEXT SCHEDULED VISIT: None - LAST REFILLED ON: 05/19/2013, QTY: 90, Refills: 0, Sig: take 1 tablet (20 mg) by oral route once daily (changed but equivalent) - SBP: 112.0mm Hg on 07/31/2014 - DBP: 74.0mm Hg on 07/31/2014 - Cr: 0.95mg/dL on 06/17/2013 - K: 4.4mEq/L on 06/17/2013 Powered by Workface, Reference: [id number], 09/18/2014 1:26:59 PM CDT, Pool: AV REFILL RN ([id number]) Interface, Out [facility] Query - 09/18/2014 1:27 PM CDT The following lab order(s) may [...] on filedocumented in this encounter Care Teams Risk Adjustment Specialist Relationship Specialty Start Date End Date Yaneth Dodd MD PCP - General 08/01/09 04/28/17 [address] [place] [address] documented as of this encounter
--- OUTSIDE RECORDS SUMMARY | 2022-02-09 09:08 | XMS_ITS | Encounter Summary ---
:1965 Author Organization [facility] Address [address] [place] [address] Care Team Providers Name Role Phone Yaneth Dodd MD Primary Care Provider Reason for Referral Consult/Transfer Care (Routine) - Closed Specialty Diagnoses / Procedures Referred By Contact Refer red To Contact Diagnoses Essential hypertension (HRC) Janet Urena APRN, CNP [address] [place] [address] Referral ID Status Reason Start Date Expiration Date Visits Requ ested Visits Authorized [id number] Closed 03/22/2015 06/20/2016 1 1 Scheduling Instructions Your provider has recommended an appoint ment with a [facility] nurse. A director database will contact you within the next 3 busin ess days to assist you in setting up this appointment. CAL WRITER Consult/Transfer Care (Routine) - Closed Specialty Diagnoses / Procedures Referred By Contact Refer red To Contact Diagnoses Trigger middle finger of right hand Janet Urena APRN, CNP [address] [place] [address] Referral ID Status Reason Start Date Expiration Date Visits Requ ested Visits Authorized [id number] Closed 03/22/2015 06/20/2016 1 1 Scheduling Instructions Your provider has recommended an appoint ment with [facility] Hand Surgery. You may call [phone] to schedule your a ppointment. If you prefer, a director database will contact you within the next 3 d ays to assist you in setting up this appointment. CAL WRITER Consult/Transfer Care (Routine) - Closed Specialty Diagnoses / Procedures Referred By Contact Refer red To Contact Optometry Janet Urena APRN, Bl Opto metry SOFTWARE RELEASE MANAGER [address] [place] [address] [place], [place] [address] Fax: Referral ID Status Reason Start Date Expiration Date Visits Requ ested Visits Authorized [id number] Closed 03/22/2015 06/20/2016 1 1 Scheduling Instructions Your provider has recommended an appoint ment with [facility] Ophthalmology. You may call [phone] to schedule your a ppointment. If you prefer, a director database will contact you within the next 3 business d ays to assist you in setting up this appointment. CAL WRITER Reason for Visit Reason Comments BP CHECK, concerned with BP being real ly low and then really high Refill BP meds (has not refilled th em in 2 weeks) Trigger Finger rt hand Consult/Transfer Care (Routine) - Closed Specialty Diagnoses / Procedures Referred By Contact Refer red To Contact Diagnoses Essential hypertension (HRC) Janet Urena APRN, CNP [address] [place], [place] [address] Referral ID Status Reason Start Date Expiration Date Visits Requ ested Visits Authorized [id number] Closed 03/22/2015 06/20/2016 1 1 Encounter Details Date Type Department Care Team Description 03/22/2015 Office Visit [facility] Janet Urena Es sential hypertension (Primary Dx); Practice JENNY RIVERA Trigger middle finger of right hand [address] [address] [place] [address] [phone] Social History Tobacco Use Types Packs/Day Years [...] Comments Blood Pressure 94/60 03/22/2015 9:39 AM MEDICAL WRITER Pulse 76 03/22/2015 9:39 AM MEDICAL WRITER Temperature - - Respiratory Rate 14 03/22/2015 9:39 AM MEDICAL WRITER Oxygen Saturation - - Inhaled Oxygen Concentration - - Weight 89.4 kg (197 lb) 03/22/2015 9:39 AM MEDICAL WRITER Height - - Body Mass Index 25.64 08/27/2012 9:41 AM CDT documented in this encounter Patient Instructions Patient InstructionsJanet Urena APRN, SOFTWARE RELEASE MANAGER - 03/22/2015 9:51 AM MEDICAL WRITER Images from the original note were not [...] or chronic kidney disease, if you are -Lao, or if you are older than age [...] Where can you learn more? Go to [employer] and enter H967 in the search box. Current as of: May 17, 2013 Content Version: 10.4 ?? 7239-2331 [employer] Learning About High Blood Pressure What is [...] Where can you learn more? Go to [employer] and enter P501 in the search box. Current as of: May 17, 2013 Content Version: 10.4 ?? 7792-7474 [employer]. Trigger Finger: After Your Visit Your Care [...] also occurs in musicians and people who assistance coordinator tools often. Rest, exercises, and other things [...] Where can you learn more? Go to [employer] and enter M826 in the search box. Current as of: January 19, 2014 Content Version: 10.4 ?? 6896-6157 [employer] CAL WRITER documented in this encounter Progress Notes Janet Urena APRN, CNP - 03/22/2015 11:06 AM [...] agreement with this plan. Janet Urena APRN, SOFTWARE RELEASE MANAGER 03/22/2015 11:11 AM CAL WRITER documented in this encounter Plan of Treatment Scheduled Referrals Name Type Priority Associated Diagnoses Order S chedule OPHTHALMOLOGY Referral Routine Ordered: 03/22 CONSULT-ADULT/PEDS HAND SURGERY Referral Routine Trigger middle finger Ordere d: 03/22/2015 CONSULT-ADULT/PEDS of right hand NURSE APPOINTMENT Referral Routine Essential hypertension Ordered: 03/22/2015 ADULT/PEDS [[id number]] documented as of this encounter Visit Diagnoses Diagnosis Essential hypertension (HRC) - Primary Unspecified essential hypertension Trigger middle finger of right hand Trigger finger (acquired) documented in this encounter Care Teams Supervisor Fruit Grading Relationship Specialty Start Date End Date Yaneth Dodd MD PCP - General 08/01/09 04/28/17 [address] [place] [address] documented as of this encounter
--- OUTSIDE RECORDS SUMMARY | 2022-02-09 09:08 | XMS_ITS | Encounter Summary ---
:1965 Author Organization [employer] Address [address] [place] [address] Care Team Providers Name Role Phone Yaneth Dodd MD Primary Care Provider Encounter Details Date Type Department Care Team Description 02/16/2015 Notes/Orders [facility] Yaneth Dodd for Practice MD Sebastien long-term (current) [address] use of medications [place], [place] (Primar y Dx) [id number] Social History Tobacco Use Types Packs/Day Years [...] notified. Page Luther CMA 02/18/2015, 8:18 AM K BODY BUILDER APPRENTICE Interface, Out Surescripts Prov Query - 02/16/2015 [...] can schedule your lab appointment online at [employer] or by calling the appointment center at the phone number listed above. Thank you for choosing [employer]. The [facility] Refill Center Nurses Powered by Mindset Media, Reference: [id number], 02/16/2015 3:50:37 AM Hector CENTENO: ROB REFFAM RN ([id number]) documented in this encounter Plan of Treatment Not on filedocumented as of this encounter Visit Diagnoses Diagnosis Encounter for long-term (current) use of medications - Primary Encounter for long-term (current) use of other medications documented in this encounter Care Teams Center Medical Specialist Relationship Specialty Start Date End Date Yaneth Dodd MD PCP - General 08/01/09 04/28/17 [address] [place] [address] documented as of this encounter
--- OUTSIDE RECORDS SUMMARY | 2022-02-09 09:08 | XMS_ITS | Encounter Summary ---
:1965 Author Organization [facility] Address [address], [place] [address] Care Team Providers Name Role Phone Yaneth Dodd MD Primary Care Provider Reason for Visit Reason Onset Date Comments Medication Request 02/08/2014 tolterodine Encounter Details Date Type Department Care Team Description 02/08/2014 Telephone [facility] Yaneth Dodd M edication Request Practice MD (tolterodine) [address] [place] [address] [place], [place] [phone] [address] (Wo rk) Social History Tobacco Use Types [...] 2:44 PM CST The pt is aware. UTER PILOT Yaneth Dodd MD - 02/08/2014 2:37 PM CST new rx sent. UTER PILOT Cece Mendoza - 02/08/2014 2:13 PM CST Per patient he needs Tolterodine Tartrate 2mg tabs because insurance does not cover 4mg tabs. Sig should say take 1 tablet by mouth 2 times daily. UTER PILOT documented in this encounter Plan of Treatment Not on filedocumented as of this encounter Visit Diagnoses Not on filedocumented in this encounter Care Teams Facilities Supervisor Relationship Specialty Start Date End Date Yaneth Dodd MD PCP - General 08/01/09 04/28/17 [address] [place] [address] documented as of this encounter
--- OUTSIDE RECORDS SUMMARY | 2022-02-09 09:08 | XMS_ITS | Encounter Summary ---
:1965 Author Organization [employer] Address [address] [place] [address] Care Team Providers Name Role Phone Yaneth Dodd MD Primary Care Provider Reason for Visit Reason Comments Appointment Encounter Details Date Type Department Care Team Description 04/18/2015 Telephone [facility] Camilo Bullock MD Appointment [address] [address] [place] [address] [phone] (Wo rk) Social History Tobacco Use Types [...] is aware is his appointment is cancelled. CTOR FRAUD Hien Cruz LPN - 04/18/2015 1:22 PM CST Verbally per Dr. Bullock, please schedule pt with a provider who does injections in the fingers. Dr. Bullock no longer does them. Pt is scheduled with Dr. Bullock on 04/22/15. Hien Cruz LPN CTOR FRAUD documented in this encounter Plan of Treatment Not on filedocumented as of this encounter Visit Diagnoses Not on filedocumented in this encounter Care Teams Salesforce Administrator Relationship Specialty Start Date End Date Yaneth Dodd MD PCP - General 08/01/09 04/28/17 [address] [place] [address] documented as of this encounter
--- OUTSIDE RECORDS SUMMARY | 2022-02-09 09:08 | XMS_ITS | Encounter Summary ---
:1965 Author Organization [facility] Address [address] [place] [address] Care Team Providers Name Role Phone Yaneth Dodd MD Primary Care Provider Reason for Visit Reason Comments Refill Encounter Details Date Type Department Care Team Description 04/11/2014 Refill [facility] Yaneth Dodd MD Refill [address] [facility] [address] [place], [place] [address] [place] [address] [phone] (Wo rk) Social History Tobacco Use Types [...] two times a day. (unchanged) Powered by Reclamador, Reference: [id number], 04/11/2014 3:49:36 AM Hector CENTENO: WYLIE RN ([id number]) BO documented in this encounter Plan of Treatment Not on filedocumented as of this encounter Visit Diagnoses Not on filedocumented in this encounter Care Teams Internet Designer Relationship Specialty Start Date End Date Yaneth Dodd MD PCP - General 08/01/09 04/28/17 [address] [place] [address] documented as of this encounter
--- OUTSIDE RECORDS SUMMARY | 2022-02-09 09:08 | XMS_ITS | Encounter Summary ---
:1965 Author Organization [email or web address] Address [address], [place] [address] Care Team Providers Name Role Phone Yaneth Dodd MD Primary Care Provider Reason for Visit Reason Comments Patient Care Coordination External Ed Follow-up Encounter Details Date Type Department Care Team Description 09/12/2015 Telephone [facility] Yaneth Dodd P [facility] MD Coordination; External [address] [place] [address] Ed Follow-up [place], [place] [address] [place], [place] [phone] (Wo rk) Social History Tobacco Use Types [...] on filedocumented in this encounter Care Teams Construction Management Instructor Relationship Specialty Start Date End Date Yaneth Dodd MD PCP - General 08/01/09 04/28/17 [address] [place] [address] documented as of this encounter
--- OUTSIDE RECORDS SUMMARY | 2022-02-09 09:08 | XMS_ITS | Encounter Summary ---
:1965 Author Organization [facility] Address [address] [place] [address] Care Team Providers Name Role Phone Yaneth Dodd MD Primary Care Provider Reason for Visit Reason Comments Refill Encounter Details Date Type Department Care Team Description 10/20/2014 Refill [facility] Yaneth Dodd MD Refill [address] [facility] [address] [place], [place] [address] [place] [address] [phone] (Wo rk) Social History Tobacco Use Types [...] two times a day. (unchanged) Powered by [employer] Reference: [id number], 10/20/2014 3:42:53 AM CDT, Pool: WYLIE RN ([id number]) documented in this encounter Plan of Treatment Not on filedocumented as of this encounter Visit Diagnoses Not on filedocumented in this encounter Care Teams Siene Maker Relationship Specialty Start Date End Date Yaneth Dodd MD PCP - General 08/01/09 04/28/17 [address] [place] [address] documented as of this encounter
--- OUTSIDE RECORDS SUMMARY | 2022-02-09 09:08 | XMS_ITS | Encounter Summary ---
:1965 Author Organization [facility] Address [address] [place] [address] Care Team Providers Name Role Phone Yaneth Dodd MD Primary Care Provider Reason for Visit Reason Comments Refill Encounter Details Date Type Department Care Team Description 02/13/2014 Refill [facility] Yaneth Dodd MD Refill [address] [facility] [address] [place], [place] [address] [place] [address] [phone] (Wo rk) Social History Tobacco Use Types [...] Refilled per standing orders. Radha Kilgore R.N. STANT EXECUTIVE HOUSEKEEPER Interface, Out Surescripts Prov Query - 02/13/2014 [...] (changed) - Renal Insufficiency: false Powered by [employer], Reference: [id number], 02/13/2014 3:56:55 AM ASSISTANT EXECUTIVE HOUSEKEEPER, Pool: WYLIE RN ([id number]) STANT EXECUTIVE HOUSEKEEPER documented in this encounter Plan of Treatment Not on filedocumented as of this encounter Visit Diagnoses Not on filedocumented in this encounter Care Teams Sash Clamp Operator Relationship Specialty Start Date End Date Yaneth Dodd MD PCP - General 08/01/09 04/28/17 [address] [place] [address] documented as of this encounter
--- OUTSIDE RECORDS SUMMARY | 2022-02-09 09:08 | XMS_ITS | Encounter Summary ---
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 asked web content writer what it could be, pt was [...] denies having any SI recently because I'm Advent and suicide is out of the question. [...] irritable, brief and dismissive when talking to web content writer. Pt denies anything that would have [...] and milieu safety. Pt anticipated admission to [place] [facility] once a bed becomes available. Pt [...] medication. documented in this encounter Care Teams Construction Carpenter Relationship Specialty Start Date End Date Yaneth Dodd MD PCP - General 08/01/09 04/28/17 [address] [place] [address] documented as of this encounter
--- OUTSIDE RECORDS SUMMARY | 2022-02-09 09:08 | XMS_ITS | Encounter Summary ---
:1965 Author Organization [facility] Address [address] [place] [address] Care Team Providers Name Role Phone Yaneth Dodd MD Primary Care Provider Reason for Visit Reason Comments Refill Encounter Details Date Type Department Care Team Description 06/20/2014 Refill [facility] Yaneth Dodd MD Refill [address] [facility] [address] [place], [place] [address] [place] [address] [phone] (Wo rk) Social History Tobacco Use Types [...] two times a day. (unchanged) Powered by [employer], Reference: [id number], 06/20/2014 3:16:43 AM CDT, Pool: WYLIE RN ([id number]) documented in this encounter Plan of Treatment Not on filedocumented as of this encounter Visit Diagnoses Not on filedocumented in this encounter Care Teams Catalyst Recovery Operator Relationship Specialty Start Date End Date Yaneth Dodd MD PCP - General 08/01/09 04/28/17 [address] [place] [address] documented as of this encounter
--- OUTSIDE RECORDS SUMMARY | 2022-02-09 09:08 | XMS_ITS | Encounter Summary ---
:1965 Author Organization [employer] Address [address] [place] [address] Care Team Providers Name Role Phone Yaneth Dodd MD Primary Care Provider Reason for Visit Reason Comments Refill Encounter Details Date Type Department Care Team Description 08/19/2014 Refill [facility] Janet Urena APRN, Refill [address] [place], [place] [address] [place] [address] [place] [address] Social History Tobacco Use Types [...] two times a day. (unchanged) Powered by [employer], Reference: [id number], 08/19/2014 3:36:41 AM CDT, Pool: BAUDILIO HERCULES RN ([id number]) documented in this encounter Plan of Treatment Not on filedocumented as of this encounter Visit Diagnoses Not on filedocumented in this encounter Care Teams Paper Cup Machine Tender Relationship Specialty Start Date End Date Yaneth Dodd MD PCP - General 08/01/09 04/28/17 [address] [place] [address] documented as of this encounter
--- OUTSIDE RECORDS SUMMARY | 2022-02-09 09:08 | XMS_ITS | Encounter Summary ---
:1965 Author Organization [facility] Address [address] [place] [address] Care Team Providers Name Role Phone Yaneth Dodd MD Primary Care Provider Reason for Visit Reason Comments Refill Encounter Details Date Type Department Care Team Description 02/16/2015 Refill [facility] Yaneth Dodd MD Refill [address] [facility] [address] [place], [place] [address] [place] [address] [phone] (Wo rk) Social History Tobacco Use Types [...] CST per standing order Malia Correia RN ARCH CENTER DIRECTOR Interface, Out Surescripts Prov Query - 02/16/2015 [...] a day. (changed but equivalent) Powered by bepretty, Reference: [id number], 02/16/2015 3:50:37 AM RESEARCH CENTER DIRECTOR, Pool: AV REFILL RN ([id number]) ARCH CENTER DIRECTOR documented in this encounter Plan of Treatment Not on filedocumented as of this encounter Visit Diagnoses Not on filedocumented in this encounter Care Teams Supervisor Logging Relationship Specialty Start Date End Date Yaneth Dodd MD PCP - General 08/01/09 04/28/17 [address] [place] [address] documented as of this encounter
--- OUTSIDE RECORDS SUMMARY | 2022-02-09 09:08 | XMS_ITS | Encounter Summary ---
:1965 Author Organization [facility] Address [address], [place] [address] Care Team Providers Name Role Phone Yaneth Dodd MD Primary Care Provider Reason for Referral Consult/Transfer Care (Routine) - Closed Specialty Diagnoses / Procedures Referred By Contact Refer red To Contact Zulay Awad MD [address] [place] [address] Referral ID Status Reason Start Date Expiration Date Visits Requ ested Visits Authorized [id number] Closed 07/31/2014 10/30/2015 1 1 Scheduling Instructions Your provider has [facility] an [facility] ment [facility]. You may call [phone] to schedule your appoi ntment. If you prefer, a senior scheduler will contact you within the next 3 business d ays to assist you in setting up this appointment. Reason for Visit Reason Comments HEADACHE--ED Encounter Details Date Type Department Care Team Description 07/31/2014 Emergency [facility] Emergency Dept Zulay Awad MD Headache (Primary Dx); [address] [facility]. [address] [facility] Herpes simplex infection of skin; [place] [address] [place] [address] Herpes simplex without mention of compli cation [phone] (Wo rk) Social History Tobacco Use Types [...] your doctor if you can take an axha-jtb-iwhgzxz medicine. ?? Limit your caffeine intake to [...] Where can you learn more? Go to [employer] and enter D038 in the search box. ?? [phone] [employer]. Content Version: 9.1.461698; Last Revised: October 01, 2009 documented in [...] Buchanan RN - 07/31/2014 4:27 PM CDT [facility] ED Nursing Discharge Note Vital Signs: BP: [...] Awad MD - 07/31/2014 12:05 PM CDT [facility] Emergency Department Visit Note Chief Complaint: HEADACHE--ED [...] nos e. His regular doctor is in [place]. Epic chart was reviewed. Upper respiratory infection [...] - 07/31/2014 10:[address] [facility] 48 yo male, 4 days runny nose, [...] GREEN HOLD TUBE (07/31/2014 12:49 PM CDT) [facility] Method Time Signature Light Green Held in [facility] Tub Chemistry HOSPITAL sample rack for 7 days Specimen Anatomical Collection Method Collection Time Receive d Time (Source) Location / / Volume Laterality 07/31/2014 12:49 07/31/2014 1:05 PM CDT PM CDT Narrative [facility] - 07/31/2014 1:07 PM CD T Performed at [facility] , [address] [place] [address] Zulay Awad MD LAB_1 Performing Organization Address City/State/ZIP Code Phon e Number [facility] [address] [place] [address] [phone] HEMOGRAM/PLTS/DIFF (07/31/2014 12:49 PM CDT) P athologist Signature WBC 4.2 4.0 - 11.0 [facility] RBC 4.88 4.5 - 5.9 [facility] Hemoglobin [address] [facility] 17.5 g/dl HOSPITAL HCT 43.1 41.0 - [facility] 53.0 % HOSPITAL MCV 88.3 80 - 100 [facility] MCH 30.3 26 - 34 pg [facility] MCHC 34.3 32 - 36 [facility] gdl HOSPITAL RDW 12.3 11.5 - [facility] 14.5 % HOSPITAL Platelets 177 150 - 450 [facility] MPV 11.0 9.4 - 12.4 [facility] PMN/Band 55 % [facility] HOSPITAL Lymph 28 % [facility] HOSPITAL [place] 15 % [facility] Eos 1 % [facility] Baso 0 % [facility] Neutrophil 2.3 1.8 - 7.7 [facility] Absolute [facility] Lymph Absolute 1.2 1.0 - 4.8 [facility] [place] Absolute 0.6 0.1 - 0.7 [facility] Eos Absolute 0.1 0.0 - 0.5 [facility] Baso Absolute 0.0 0.0 - 0.2 [facility] Immature Gran 1 % [facility] Imm Gran 0.0 0 [facility] Specimen Anatomical Collection Method Collection Time Receive d Time (Source) Location / / Volume Laterality 07/31/2014 12:49 07/31/2014 1:05 PM CDT PM CDT Narrative [facility] - 07/31/2014 1:28 PM CD T Performed at [facility] , [address] [place] [address] Zulay Awad MD LAB_1 Performing Organization Address City/State/ZIP Code Phon e Number [address] [address] documented in this encounter Visit Diagnoses Diagnosis [...] Bolus documented in this encounter Care Teams Ripper Operator Relationship Specialty Start Date End Date Yaneth Dodd MD PCP - General 08/01/09 04/28/17 [address] [place] [address] documented as of this encounter
--- OUTSIDE RECORDS SUMMARY | 2022-02-09 09:08 | XMS_ITS | Encounter Summary ---
:1965 Author Organization [facility] Address [address] [place] [address] Care Team Providers Name Role Phone Yaneth Dodd MD Primary Care Provider Reason for Visit Reason Comments Refill Encounter Details Date Type Department Care Team Description 11/18/2014 Refill [facility] Briana Vazquez PAAshleyC Refill [address] [facility] [address] [place], [place] [address] [place] [address] [phone] (Wo rk) Social History Tobacco Use Types [...] sleep. (unchanged) - [age] Powered by [employer], Reference: [id number], 11/18/2014 3:35:34 AM CDT, Pool: WYLIE RN ([id number]) documented in this encounter Plan of Treatment Not on filedocumented as of this encounter Visit Diagnoses Not on filedocumented in this encounter Care Teams Senior Data Integration Developer Relationship Specialty Start Date End Date Yaneth Dodd MD PCP - General 08/01/09 04/28/17 [address] [place] [address] documented as of this encounter
--- OUTSIDE RECORDS SUMMARY | 2022-02-09 09:08 | XMS_ITS | Encounter Summary ---
:1965 Author Organization [facility] Address [address] [address] Care Team Providers Name Role Phone Yaneth Dodd MD Primary Care Provider Reason for Visit Reason Comments Refill traZODone (AKA DESYREL) 100 MG tablet [Pharmacy Med Name: TRAZODONE 100MG TABLET] Encounter Details Date Type Department Care Team Description 08/15/2015 Refill [facility] Briana Vazquez, Ref ill (traZODone (AKA Practice PA-C DESYREL) 100 MG tablet [address] [facility] [address] [Pharmacy Med Name: [place], [place] [address] [place], [place] TRAZODONE 100MG TABLET]) [phone] [address] (Wo rk) Social History Tobacco Use Types [...] for sleep. (unchanged) Age: 49 Powered by [employer], Reference: [id number], 08/15/2015 3:50:59 AM CDT, Pool: WYLIE RN ([id number]) documented in this encounter Plan of Treatment Not on filedocumented as of this encounter Visit Diagnoses Not on filedocumented in this encounter Care Teams Stain Wiper Relationship Specialty Start Date End Date Yaneth Dodd MD PCP - General 08/01/09 04/28/17 [address] [place] [address] documented as of this encounter
--- OUTSIDE RECORDS SUMMARY | 2022-02-09 09:08 | XMS_ITS | Encounter Summary ---
:1965 Author Organization [facility] Address [address] [place] [address] Care Team Providers Name Role Phone Briana Vazquez PA-C Primary Care Provider Encounter Details Date Type Department Care Team Description 08/29/2015 Partner ED External to [place], BACK AND LEG PAIN DRUG Provider [...] Briana Vazquez PA-C PCP - General Physician Soap Press Feeder 06/30/17 10/03/19 [address] [place] [address] documented as of this encounter
--- OUTSIDE RECORDS SUMMARY | 2022-02-09 09:08 | XMS_ITS | Encounter Summary ---
:1965 Author Organization [facility] Address [address] [place] [address] Care Team Providers Name Role Phone Yaneth Dodd MD Primary Care Provider Reason for Visit Reason Comments Refill Encounter Details Date Type Department Care Team Description 12/18/2014 Refill [facility] Yaneth Dodd MD Refill [address] [facility] [address] [place] [address] [place] [address] [phone] (Wo rk) Social History Tobacco Use Types Packs/Day Years Used Date Smoking Tobacco: Former Cigarettes 0.5 3 Cigars Smokeless Tobacco: Never Comments: Occasional cigar Alcohol Use Standard Drinks/Week Comments Yes 0 (1 standard drink = 0.6 oz pure alcoho l) Rare Sex Assigned at Date Recorded Not on file documented as of this encounter Nursing Notes Jessica Baez RN - 12/18/2014 9:03 AM CDT per standing order. Jessica Baez RN Interface, Out Surescripts Prov Query - 12/18/2014 3:19 AM CDT diclofenac (AKA VOLTAREN) 50 MG enteric coated tablet [Pharmacy Med Name: DICLOFENAC SOD EC 50MG TAB] - REFILL: 9 months - PROTOCOL: NSAIDs - RATIONALE: This refill should last until the patient is due for an office visit. - LAST QUALIFYING VISIT IN FAMILY PRACTICE: 07/31/2014 - NEXT SCHEDULED VISIT: None - LAST REFILLED ON: 10/22/2014, QTY: 60, Refills: 1, Sig: take 1 tablet by mouth two times a day. (unchanged) Powered by [employer], Reference: [id number], 12/18/2014 3:18:59 AM CDT, Pool: AV REFILL RN ([id number]) documented in this encounter Plan of Treatment Not on filedocumented as of this encounter Visit Diagnoses Not on filedocumented in this encounter Care Teams Director Card Relationship Specialty Start Date End Date Yaneth Dodd MD PCP - General 08/01/09 04/28/17 [address] [place] [address] documented as of this encounter
--- OUTSIDE RECORDS SUMMARY | 2022-02-09 09:08 | XMS_ITS | Encounter Summary ---
:1965 Author Organization [employer] Address [address], [place] [address] Care Team Providers Name Role Phone Yaneth Dodd MD Primary Care Provider Encounter Details Date Type Department Care Team Description 05/25/2015 Notes/Orders [facility] Yaneth Dodd for Practice MD Sebastien long-term (current) [address] use of medications [place], [place] (Primar y Dx) [phone] Social History Tobacco Use Types Packs/Day Years [...] You can schedule your appointment online at [employer] or by calling the appointment center at the phone number listed above. Thank you for choosing [employer]. [facility] Nurses Powered by [employer], Reference: [id number], 05/25/2015 3:27:16 AM CDT, Pool: WYLIE RN ([id number]) documented in this encounter Plan of Treatment Not on filedocumented as of this encounter Visit Diagnoses Diagnosis Encounter for long-term (current) use of medications - Primary Encounter for long-term (current) use of other medications documented in this encounter Care Teams Plum Packer Relationship Specialty Start Date End Date Yaneth Dodd MD PCP - General 08/01/09 04/28/17 [address] [place] [address] documented as of this encounter
--- OUTSIDE RECORDS SUMMARY | 2022-02-09 09:08 | XMS_ITS | Encounter Summary ---
:1965 Author Organization [facility] Address [address], [place] [address] Care Team Providers Name Role Phone Yaneth Dodd MD Primary Care Provider Reason for Visit Reason Comments Refill valACYclovir (AKA VALTREX) 5 00 MG tablet [Pharmacy Med Name: VALACYCLOVIR HCL 500MG TABLET] Encounter Details Date Type Department Care Team Description 06/16/2015 Refill [facility] Yaneth oDdd R efill (valACYclovir Practice (AKA VALTREX) 500 MG [address] [facility] [address] tablet [Pharmacy Med [place], [place] [address] [place], [place] Name: VALACYCLOVIR HCL [phone] 71022 500MG TABLET]) [phone] (Wo rk) Social History Tobacco Use Types [...] 06/17/2015 10:37 AM CDT per standing order. Jesisca Baez RN Interface, Out Surescripts Prov Query [...] on 06/17/2013 - [age] Powered by [employer], Reference: [id number], 06/16/2015 3:21:50 AM CDT, Pool: ROB REFILL LAVERN ([id number]) Interface, Out Performable Prov Query - 06/16/2015 3:21 AM CDT [...] on filedocumented in this encounter Care Teams Upholstery Tech Relationship Specialty Start Date End Date Yaneth Dodd MD PCP - General 08/01/09 04/28/17 [address] [place] [address] documented as of this encounter
--- OUTSIDE RECORDS SUMMARY | 2022-02-09 09:08 | XMS_ITS | Encounter Summary ---
:1965 Author Organization [facility] Address [address] [place] [address] Care Team Providers Name Role Phone Yaneth Dodd MD Primary Care Provider Reason for Visit Reason Comments Refill Encounter Details Date Type Department Care Team Description 03/10/2014 Refill [facility] Yaneth Dodd MD Refill [address] [facility] [address] [place], [place] [address] [place] [address] [phone] (Wo rk) Social History Tobacco Use Types [...] as needed for sleep. (unchanged) Powered by [employer], Reference: [id number], 03/10/2014 1:28:50 PM BILINGUAL SPEECH THERAPIST, Pool: ROB REFILL RN ([id number]) NGUAL SPEECH THERAPIST documented in this encounter Plan of Treatment Not on filedocumented as of this encounter Visit Diagnoses Not on filedocumented in this encounter Care Teams Belly Packer Relationship Specialty Start Date End Date Yaneth Dodd MD PCP - General 08/01/09 04/28/17 [address] [place] [address] documented as of this encounter
--- OUTSIDE RECORDS SUMMARY | 2022-02-09 09:08 | XMS_ITS | Encounter Summary ---
:1965 Author Organization [facility] Address [address] [place] [address] Care Team Providers Name Role Phone Yaneth Dodd MD Primary Care Provider Encounter Details Date Type Department Care Team Description 10/20/2014 Notes/Orders [facility] Yaneth Dodd for Practice MD Sebastien long-term (current) [address] use of other [place], [place] medicat ions (Primary [phone] [id number] Dx) [phone] Social History Tobacco Use Types Packs/Day Years [...] can schedule your lab appointment online at Mesuro or by calling the appointment center at the phone number listed above. Thank you for choosing [facility]. The [facility] Nurses Powered by [employer], Reference: [id number], 10/20/2014 3:42:53 AM CDT, Pool: WYLIE RN ([id number]) documented in this encounter Plan of Treatment Not on filedocumented as of this encounter Visit Diagnoses Diagnosis Encounter for long-term (current) use of other medications - Primary documented in this encounter Care Teams Assistant Director Of Public Works Relationship Specialty Start Date End Date Yaneth Dodd MD PCP - General 08/01/09 04/28/17 [address] [place] [address] documented as of this encounter
--- OUTSIDE RECORDS SUMMARY | 2022-02-09 09:08 | XMS_ITS | Encounter Summary ---
:1965 Author Organization [facility] Address [address], [place] [address] Care Team Providers Name Role Phone Yaneth Dodd MD Primary Care Provider Reason for Visit Reason Comments Refill diclofenac (AKA VOLTAREN) 50 MG enteric coated tablet [Pharmacy Med Name: DICLOFENAC SOD EC 50MG TAB] Encounter Details Date Type Department Care Team Description 05/25/[address] [facility] Yaneth Dodd R efill (diclofenac (AKA Practice VOLTMANINDERN) 50 MG enteric [address] [place] [address] coated tablet [Pharmacy [place], [place] [address] [place], [place] Med Name: DICLOFENAC SOD [phone] EC 50MG TAB]) [phone] (Wo rk) Social History Tobacco Use Types [...] two times a day. (unchanged) Powered by [employer]er, Reference: [id number], 05/25/2015 3:27:15 AM CDT, Pool: WYLIE RN ([id number]) documented in this encounter Plan of Treatment Not on filedocumented as of this encounter Visit Diagnoses Not on filedocumented in this encounter Care Teams Education Courses Sales Representative Relationship Specialty Start Date End Date Yaneth Dodd MD PCP - General 08/01/09 04/28/17 [address] [place] [address] documented as of this encounter
--- OUTSIDE RECORDS SUMMARY | 2022-02-09 09:08 | XMS_ITS | Encounter Summary ---
:1965 Author Organization [facility] Address [address], [place] [address] Care Team Providers Name Role Phone Yaneth Dodd MD Primary Care Provider Encounter Details Date Type Department Care Team Description 08/15/2015 Notes/Orders [facility] Yaneth Dodd for Practice MD Sebastien long-term (current) [address] use of medications [place], [place] (Primar y Dx) [phone] [id number] Social History Tobacco Use Types Packs/Day Years Used Date Smoking Tobacco: Former Cigarettes 0.5 3 Cigars Smokeless Tobacco: Never Comments: Occasional cigar Alcohol Use Standard Drinks/Week Comments Yes 0 (1 standard drink = 0.6 oz pure alcoho l) Rare Sex Assigned at Date Recorded Not on file documented as of this encounter Progress Notes Page Luther CMA - 08/15/2015 9:20 AM CDT Pt notified. Page Luther CMA 08/15/2015, 9:20 AM documented in this encounter Nursing Notes Interface, Out Surescripts Prov Query - 08/15/2015 3:51 AM CDT ORDER THE FOLLOWING: - CREATININE: [...] You can schedule your appointment online at AUTOFACT or by calling the appointment center at the phone number listed above. Thank you for choosing [facility]. The [facility] Nurses Powered by [employer], Reference: [id number], 08/15/2015 3:50:59 AM CDT, Pool: WYLIE RN ([id number]) documented in this encounter Plan of Treatment Not on filedocumented as of this encounter Visit Diagnoses Diagnosis Encounter for long-term (current) use of medications - Primary Encounter for long-term (current) use of other medications documented in this encounter Care Teams Chief Passenger Ship Steward/Stewardess Relationship Specialty Start Date End Date Yaneth Dodd MD PCP - General 08/01/09 04/28/17 [address] [place] [address] documented as of this encounter
--- OUTSIDE RECORDS SUMMARY | 2022-02-09 09:08 | XMS_ITS | Encounter Summary ---
:1965 Author Organization [facility] Address [address] [place] [address] Care Team Providers Name Role Phone Yaneth Dodd MD Primary Care Provider Reason for Visit Reason Comments HEADACHE x 5 days. Pt took Maxalt on Wednesday, Imitrex on Wednesday and Wednesday. Encounter Details Date Type Department Care Team Description 07/31/2014 Office Visit [place] [facility] Boaz Maguire Headache (784.0) (Primary Dx); Practice MD Luis [place] [phone] [phone] Social History Tobacco Use Types Packs/Day Years [...] recurrent genital herpes. Problem list reviewed on [facility] Social history reviewed on [facility] Current Outpatient Prescriptions Medication Sig ??? [...] took. I recommended the patient go to [facility] Emergency Room for further further evaluation to rule out meningitis. Dr Kaur at [facility] ER notified. Imitrex is reordered for the [...] cation documented in this encounter Care Teams High Reach Operator Relationship Specialty Start Date End Date Yaneth Dodd MD PCP - General 08/01/09 04/28/17 [address] [place] [address] documented as of this encounter
--- OUTSIDE RECORDS SUMMARY | 2022-02-09 09:08 | XMS_ITS | Encounter Summary ---
:1965 Author Organization [employer] Address [address] [place] [address] Care Team Providers Name Role Phone Yaneth Dodd MD Primary Care Provider Reason for Visit Reason Comments Refill Encounter Details Date Type Department Care Team Description 07/20/2014 Refill [facility] Yaneth Dodd MD Refill [address] [facility] [address] [place], [place] [address] [place] [address] [phone] (Wo rk) Social History Tobacco Use Types [...] for sleep. (changed but equivalent) Powered by [employer], Reference: [id number], 07/20/2014 3:31:04 AM CDT, Pool: WYLIE RN ([id number]) documented in this encounter Plan of Treatment Not on filedocumented as of this encounter Visit Diagnoses Not on filedocumented in this encounter Care Teams Grocery Associate Relationship Specialty Start Date End Date Yaneth Dodd MD PCP - General 08/01/09 04/28/17 [address] [place] [address] documented as of this encounter
--- OUTSIDE RECORDS SUMMARY | 2022-02-09 09:08 | XMS_ITS | Encounter Summary ---
:1965 Author Organization [facility] Address [address] [place] [address] Care Team Providers Name Role Phone Yaneth Dodd MD Primary Care Provider Reason for Visit Reason Comments Refill Encounter Details Date Type Department Care Team Description 03/18/2015 Refill [facility] Yaneth Dodd MD Refill [address] [facility] [address] [place], [place] [address] [place] [address] [phone] (Wo rk) Social History Tobacco Use Types [...] junior, male hung up, sending letter out OR UX DESIGNER Rose Jesus - 03/18/2015 10:59 AM CST LMTCB Yaneth Almazan MD - 03/18/2015 7:39 AM CST Please call pt and let him know he needs labs for further refills. He does not need to be fasting. OR UX DESIGNER Interface, Out SuperMama Prov Query - 03/18/2015 3:57 AM CST [...] - K: 4.4mEq/L on 06/17/2013 Powered by [employer], Reference: [id number], 03/18/2015 3:57:31 AM SENIOR UX DESIGNER, Pool: AV REFILL RN ([id number]) OR UX DESIGNER Interface, Out SuperMama Prov Query - 03/18/2015 3:57 AM CST [...] I will have orders in the lab. OR UX DESIGNER documented in this encounter Plan of Treatment Not on filedocumented as of this encounter Visit Diagnoses Diagnosis Follow up - Primary documented in this encounter Care Teams Science Job Titles Relationship Specialty Start Date End Date Yaneth Dodd MD PCP - General 08/01/09 04/28/17 [address] [place] [address] documented as of this encounter
--- OUTSIDE RECORDS SUMMARY | 2022-02-09 09:08 | XMS_ITS | Encounter Summary ---
:1965 Author Organization [facility] Address [address] [place] [address] Care Team Providers Name Role Phone Briana [...] Advisor Relationship Specialty Start Date End Date Briana Vazquez PA-C PCP - General Physician Roll Cleaner 11/29/19 [address] [place] [address] documented as of this encounter
--- OUTSIDE RECORDS SUMMARY | 2022-02-09 09:09 | XMS_ITS | Encounter Summary ---
:1965 Author Organization [facility] Address [address] [place] [address] Care Team Providers Name Role Phone Yaneth Dodd MD Primary Care Provider Reason for Visit Reason Comments Refill Encounter Details Date Type Department Care Team Description 09/20/2012 Refill [facility] Yaneth Dodd MD Refill [address]386 [facility] [address] [place], [place] [address] [place] [address] [phone] (Wo rk) Social History Tobacco Use Types Packs/Day Years Used Date Smoking Tobacco: Former Cigarettes 0.5 3 Cigars Smokeless Tobacco: Never Comments: Occasional cigar Alcohol Use Standard Drinks/Week Comments Yes 0 (1 standard drink = 0.6 oz pure alcoho l) Rare Sex Assigned at Date Recorded Not on file documented as of this encounter Nursing Notes Jaren Horton - 09/21/2012 8:16 AM CDT RN is unable to refill. HYDROcodone-acetaminophen (AKA NORCO) 5-325 MG tablet Date of last visit: 05/12/12 Last time med was ordered: Date: 08/23/12 Dispensed: 30 Number of refills: 0 Careplan: YES, copy of careplan: The patient suffers from chronic low back pain. Currently, he uses 30 tablets of hydrocodone 5-325 mg every month. He has been very compliant. documented in this encounter Plan of Treatment Not on filedocumented as of this encounter Visit Diagnoses Not on filedocumented in this encounter Care Teams Telecommunicator Relationship Specialty Start Date End Date Yaneth Dodd MD PCP - General 08/01/09 04/28/17 [address] [place] [address] documented as of this encounter
--- OUTSIDE RECORDS SUMMARY | 2022-02-09 09:09 | XMS_ITS | Encounter Summary ---
:1965 Author Organization [facility] Address [address] [place] [address] Care Team Providers Name Role Phone Yaneth Dodd MD Primary Care Provider Reason for Visit Reason Comments Refill Encounter Details Date Type Department Care Team Description 12/16/2012 Refill [facility] Yaneth Dodd MD Refill [address]856 [facility] [address] [place], [place] [address] [place] [address] [phone] (Wo rk) Social History Tobacco Use Types [...] month. He has been very compliant. --- aMlia Correia RN 12/16/2012, 9:26 AM --- Patient is calling about their refill request, please complete as soon as possible. Thanks, Av clinic documented in this encounter Plan of Treatment Not on filedocumented as of this encounter Visit Diagnoses Not on filedocumented in this encounter Care Teams Oracle Database Consultant Relationship Specialty Start Date End Date Yaneth Dodd MD PCP - General 08/01/09 04/28/17 [address] [place] [address] documented as of this encounter
--- OUTSIDE RECORDS SUMMARY | 2022-02-09 09:09 | XMS_ITS | Encounter Summary ---
:1965 Author Organization [facility] Address [address] [place] [address] Care Team Providers Name Role Phone Yaneth Dodd MD Primary Care Provider Encounter Details Date Type Department Care Team Description 06/20/2013 Orders Only [facility] Yaneth Dodd ow (Primary Dx) Practice MD Sebastien [address] [place] [address] [place], [place] [phone] [address] Social History Tobacco Use Types Packs/Day Years [...] 06/30/2013 7:04 PM C DT Performed at [facility], [address] [place] [address] ??[id number] Yaneth Dodd MD LAB_1 Performing Organization Address City/State/ZIP Code Phon e Number [facility] [phone] documented in this encounter Visit Diagnoses Diagnosis Follow up - Primary Follow up documented in this encounter Care Teams Amusement Park Ride Mechanic Relationship Specialty Start Date End Date Yaneth Dodd MD PCP - General 08/01/09 04/28/17 [address] [place], [place] [id number] documented as of this encounter
--- OUTSIDE RECORDS SUMMARY | 2022-02-09 09:09 | XMS_ITS | Encounter Summary ---
:1965 Author Organization [facility] Address [address] [place] [address] Care Team Providers Name Role Phone Yaneth Dodd MD Primary Care Provider Reason for Visit Reason Comments Refill Encounter Details Date Type Department Care Team Description 02/17/2013 Refill [facility] Mervin Mckeon MD Refill Medicine [address] [place] [address] [place] [address] [place] [address] [phone] Social History Tobacco Use Types Packs/Day Years Used Date Smoking Tobacco: Former Cigarettes 0.5 3 Cigars Smokeless Tobacco: Never Comments: Occasional cigar Alcohol Use Standard Drinks/Week Comments Yes 0 (1 standard drink = 0.6 oz pure alcoho l) Rare Sex Assigned at Date Recorded Not on file documented as of this encounter ED Notes Jose Juan Alvarez Circuportoscarexoro system Prov Query - 02/17/2013 1:05 PM CST Order(s) created erroneously. Erroneous order ID: [id number] Order moved by: OPAL ALVAREZ Order move date/time: 02/17/2013 1:05 PM Source Patient: [id number] Source Contact: 02/17/2013 Destination Patient: [id number] Destination Contact: 02/17/2013 [employer]ES documented in this encounter Plan of Treatment Not on filedocumented as of this encounter Visit Diagnoses Not on filedocumented in this encounter Care Teams Rail Walker Relationship Specialty Start Date End Date Yaneth Dodd MD PCP - General 08/01/09 04/28/17 [address] [place] [address] documented as of this encounter
--- OUTSIDE RECORDS SUMMARY | 2022-02-09 09:09 | XMS_ITS | Encounter Summary ---
:1965 Author Organization [facility] Address [address] [place] [address] Care Team Providers Name Role Phone Yaneth Strong MD Primary Care Provider Reason for Visit Reason Onset Date Comments RESULTS, TEST 06/20/2013 Encounter Details Date Type Department Care Team Description 06/20/2013 Telephone [facility] Chris Strong MD RESULTS, TEST Practice [address] [facility] [address] [place] [address] [place] [address] [phone] Social History Tobacco Use Types Packs/Day Years [...] on filedocumented in this encounter Care Teams Mule Rider Relationship Specialty Start Date End Date Yaneht Strong MD PCP - General 08/01/09 04/28/17 [address] [place] [address] documented as of this encounter
--- OUTSIDE RECORDS SUMMARY | 2022-02-09 09:09 | XMS_ITS | Encounter Summary ---
:1965 Author Organization [facility] Address [address] [place] [address] Care Team Providers Name Role Phone Yaneth Dodd MD Primary Care Provider Encounter Details Date Type Department Care Team Description 11/15/2013 Orders Only [facility] Other specified [address] [facility] pre-operative examination [place], [place] [address] Social History Tobacco Use [...] - 11/15/2013 11:29 AM CDT Performed at [facility], [address] [place], [place] [id number] Yaneth Dodd MD LAB_1 Performing Organization Address [facility] Phon e Number [facility] [phone] (ABNORMAL) UA MICRO IF (11/15/2013 10:41 AM [...] - 11/15/2013 11:28 AM CDT Performed at [facility], [address] [place], [place] [id number] Yaneth Dodd MD LAB_1 Performing Organization Address [facility] Phon e Number [facility] [phone] (ABNORMAL) HEMOGRAM/PLTS (11/15/2013 10:41 AM CDT) P [...] 11/15/2013 3:20 PM C DT Performed at [facility], [address] [place] [address] ??[id number] Yaneth Dodd MD LAB_1 Performing Organization Address City/State/ZIP Code Phon e Number [facility] [phone] documented in this encounter Visit Diagnoses Diagnosis Other specified pre-operative examinatio n documented in this encounter Care Teams Domestic Housekeeper Relationship Specialty Start Date End Date Yaneth Dodd MD PCP - General 08/01/09 04/28/17 [address] [place] [address] documented as of this encounter
--- OUTSIDE RECORDS SUMMARY | 2022-02-09 09:09 | XMS_ITS | Encounter Summary ---
:1965 Author Organization [facility] Address [address], [place] [address] Care Team Providers Name Role Phone Yaneth Dodd MD Primary Care Provider Encounter Details Date Type Department Care Team Description 06/30/2013 Orders Only [facility] [place] [address] [place], [place] [address] Social History Tobacco Use [...] 06/30/2013 7:04 PM C DT Performed at [facility], [address] [place] [address] ??[address] Yaneth Dodd MD LAB_1 Performing Organization Address City/State/[facility] Code Phon e Number [facility] [phone] documented in this encounter Visit Diagnoses Diagnosis Follow up documented in this encounter Care Teams Machine Turner Relationship Specialty Start Date End Date Yaneth Dodd MD PCP - General 08/01/09 04/28/17 [address] [place] [address] documented as of this encounter
--- OUTSIDE RECORDS SUMMARY | 2022-02-09 09:09 | XMS_ITS | Encounter Summary ---
:1965 Author Organization [facility] Address [address] [place] [address] Care Team Providers Name Role Phone Yaneth Dodd MD Primary Care Provider Reason for Visit Reason Comments Refill Encounter Details Date Type Department Care Team Description 06/05/2013 Refill [facility] Yaneth Dodd MD Refill [address] [facility] [address] [place], [place] [address] [place] [address] [phone] (Wo rk) Social History Tobacco Use Types [...] two times a day. (unchanged) Powered by [employer], Reference: [id number], 06/05/2013 3:34:44 AM CDT documented in this encounter Plan of Treatment Not on filedocumented as of this encounter Visit Diagnoses Not on filedocumented in this encounter Care Teams Kettle Cook Relationship Specialty Start Date End Date Yaneth Dodd MD PCP - General 08/01/09 04/28/17 [address] [place] [address] documented as of this encounter
--- OUTSIDE RECORDS SUMMARY | 2022-02-09 09:09 | XMS_ITS | Encounter Summary ---
:1965 Author Organization [facility] Address [address] [place] [address] Care Team Providers Name Role Phone Yaneth Dodd MD Primary Care Provider Reason for Visit Reason Comments Refill Encounter Details Date Type Department Care Team Description 06/30/2013 Refill [facility] Yaneth Dodd MD Refill [address] [facility] [address] [place], [place] [address] [place] [address] [phone] (Wo rk) Social History Tobacco Use Types Packs/Day Years Used Date Smoking Tobacco: Former Cigarettes 0.5 3 Cigars Smokeless Tobacco: Never Comments: Occasional cigar Alcohol Use Standard Drinks/Week Comments Yes 0 (1 standard drink = 0.6 oz pure alcoho l) Rare Sex Assigned at Date Recorded Not on file documented as of this encounter Nursing Notes Uvaldo, Jose Juan EDUS Prov Query - 06/30/2013 10:25 AM CDT The following is the most recent Careplan note pulled in by Bib: The patient suffers from chronic low back pain. Currently, he uses 30 tablets of hydrocodone 5-325 mg every month. He has been very compliant. Uvaldo, Out EDUS Prov Query - 06/30/2013 10:25 AM CDT [...] set to Print on 05/30/2013.) Powered by [employer], Reference: [id number], 06/30/2013 10:25:43 AM CDT documented in this encounter Plan of Treatment Not on filedocumented as of this encounter Visit Diagnoses Not on filedocumented in this encounter Care Teams Public Relations Senior Associate Relationship Specialty Start Date End Date Yaneth Dodd MD PCP - General 08/01/09 04/28/17 [address] [place] [address] documented as of this encounter
--- OUTSIDE RECORDS SUMMARY | 2022-02-09 09:09 | XMS_ITS | Encounter Summary ---
:1965 Author Organization [facility] Address [address] [place] [address] Care Team Providers Name Role Phone Yaneth Dodd MD Primary Care Provider Reason for Visit Reason Comments Refill Encounter Details Date Type Department Care Team Description 01/20/[address] [facility] Mervin Mckeon MD Refill Medicine [address] [place] [address] [place] [address] [place] [address] [phone] Social History Tobacco Use Types Packs/Day Years Used Date Smoking Tobacco: Former Cigarettes 0.5 3 Cigars Smokeless Tobacco: Never Comments: Occasional cigar Alcohol Use Standard Drinks/Week Comments Yes 0 (1 standard drink = 0.6 oz pure alcoho l) Rare Sex Assigned at Date Recorded Not on file documented as of this encounter Nursing Notes Malia Correia RN - 01/20/2013 1:31 PM CST RN is unable to refill. Date of last visit: 05/12/12 Last time med was ordered: Date: 12/16/12 Dispensed: 30 Number of refills: 0 Narcotic Careplan: 02/05/10: Nicanor is a 44-year-old male who suffers from chronic back pain. He has had four surgeries of hislower back including three laminectomies and one fusion. He gets intermittent flares of his back symptoms. We have agreed on 15 tablets of Vicodin monthly. If he should require more than that, he will need to come and talk to me. ---- Malia Correia, RN 01/20/2013, 1:33 PM ICE PARTS DRIVER documented in this encounter Plan of Treatment Not on filedocumented as of this encounter Visit Diagnoses Not on filedocumented in this encounter Care Teams Traffic Line Painter Relationship Specialty Start Date End Date Yaneth Dodd MD PCP - General 08/01/09 04/28/17 [address] [place] [address] documented as of this encounter
--- OUTSIDE RECORDS SUMMARY | 2022-02-09 09:09 | XMS_ITS | Encounter Summary ---
:1965 Author Organization [facility] Address [address] [place] [address] Care Team Providers Name Role Phone Yaneth Dodd MD Primary Care Provider Reason for Visit Reason Comments Refill Encounter Details Date Type Department Care Team Description 04/05/2013 Refill [facility] Briana Vazquez PAAshleyC Refill [address] [facility] [address] [place], [place] [address] [place] [address] [phone] (Wo rk) Social History Tobacco Use Types [...] as needed for pain (unchanged) Powered by [employer], Reference: [id number], 04/05/2013 GER OF INVESTIGATIONS Interface, Out Enernetics Query - 04/05/2013 1:47 PM CSTThe following is the most recent Careplan note pulled in Raquel: The patient suffers from chronic low back pain. Currently, he uses 30tablets of hydrocodone 5-325 mg every month. He has been very compliant. GER OF INVESTIGATIONS documented in this encounter Plan of Treatment Not on filedocumented as of this encounter Visit Diagnoses Not on filedocumented in this encounter Care Teams Occasional Caregiver Relationship Specialty Start Date End Date Yaneth Dodd MD PCP - General 08/01/09 04/28/17 [address] [place] [address] documented as of this encounter
--- OUTSIDE RECORDS SUMMARY | 2022-02-09 09:09 | XMS_ITS | Encounter Summary ---
:1965 Author Organization [facility] Address [address] [place] [address] Care Team Providers Name Role Phone Yaneth Dodd MD Primary Care Provider Reason for Visit Reason Comments Refill Encounter Details Date Type Department Care Team Description 08/29/2013 Refill [facility] Yaneth Dodd MD Refill [address]198 [facility] [address] [place], [place] [address] [place] [address] [phone] (Wo rk) Social History Tobacco Use Types Packs/Day Years Used Date Smoking Tobacco: Former Cigarettes 0.5 3 Cigars Smokeless Tobacco: Never Comments: Occasional cigar Alcohol Use Standard Drinks/Week Comments Yes 0 (1 standard drink = 0.6 oz pure alcoho l) Rare Sex Assigned at Date Recorded Not on file documented as of this encounter Progress Notes Jose Juan BailonVirsto Software Prov Query - 08/29/2013 3:28 PM CDT Order(s) created erroneously. Erroneous order ID: [id number] Order moved by: ANTONIO TheBlogTVANALIWesabe Order move date/time: 08/29/2013 3:28 PM Source Patient: [id number] Source Contact: 08/29/2013 Destination Patient: [id number] Destination Contact: 08/29/2013 documented in this encounter Nursing Notes Stacey Felton - 08/29/2013 4:29 PM CDT I called and spoke to the pt and he is aware of his need for this appt but he will call back at a later date to arrange it. Yaneth Ddod MD - 08/29/2013 3:40 PM CDT Pt needs follow up visit as it has been over a year. 08/29/2013 3:28 PM CDT HYDROcodone-acetaminophen (AKA NORCO) 5-325 MG tablet [Pharmacy Med Name: HYDROCODONE-APAP 5-325 TABLET] - WARNING: The requested medication was previously set to Print on 08/01/2013. - VIOLATION #1: Medication is not assigned to a protocol. - VIOLATION #2: An office visit is overdue (performed 16 months ago, required every 12 months). - PROTOCOL: None Exists (Controlled Substance) - LAST PRIMARY CARE VISIT: 05/12/2012 - NEXT PRIMARY CARE VISIT: None - LAST REFILLED: Not available (Last set to Print on 08/01/2013.) Powered by Maichang, Reference: [id number], 08/29/2013 3:32:01 PM CDT 08/29/2013 3:28 PM CDT The following is the most recent Careplan note pulled in by Bib: The patient suffers from chronic low back pain. Currently, he uses 30 tablets of hydrocodone 5-325 mg every month. He has been very compliant. documented in this encounter Plan of Treatment Not on filedocumented as of this encounter Visit Diagnoses Not on filedocumented in this encounter Care Teams Investment Specialist Relationship Specialty Start Date End Date Yaneth Dodd MD PCP - General 08/01/09 04/28/17 [address] [place] [address] documented as of this encounter
--- OUTSIDE RECORDS SUMMARY | 2022-02-09 09:09 | XMS_ITS | Encounter Summary ---
:1965 Author Organization [employer] Address [address] [place] [address] Care Team Providers Name Role Phone Yaneth Dodd MD Primary Care Provider Reason for Visit Reason Comments Refill Encounter Details Date Type Department Care Team Description 11/08/2013 Refill [facility] Yaneth Dodd MD Refill 87222 [facility] [address] [place], [place] [address] [place] [address] [phone] (Wo rk) Social History Tobacco Use Types Packs/Day Years Used Date Smoking Tobacco: Former Cigarettes 0.5 3 Cigars Smokeless Tobacco: Never Comments: Occasional cigar Alcohol Use Standard Drinks/Week Comments Yes 0 (1 standard drink = 0.6 oz pure alcoho l) Rare Sex Assigned at Date Recorded Not on file documented as of this encounter Nursing Notes Stacey Fleton - 11/08/2013 12:49 PM CDT I called [...] two times a day. (unchanged) Powered by Syrmo, Reference: [id number], 11/08/2013 12:20:39 PM CDT, Pool: ROB REFILL RN ([id number]) documented in this encounter Plan of Treatment Not on filedocumented as of this encounter Visit Diagnoses Not on filedocumented in this encounter Care Teams Manager Beverage Relationship Specialty Start Date End Date Yaneth Dodd MD PCP - General 08/01/09 04/28/17 [address] [place] [address] documented as of this encounter
--- OUTSIDE RECORDS SUMMARY | 2022-02-09 09:09 | XMS_ITS | Encounter Summary ---
:1965 Author Organization [employer] Address [address] [place] [address] Care Team Providers Name Role Phone Yaneth Dodd MD Primary Care Provider Reason for Visit Reason Onset Date Comments Refill 12/27/2012 Encounter Details Date Type Department Care Team Description 12/27/2012 Refill [facility] Chavo Rios MD Refill [address]79 [facility] [address] [place], [place] [address] [place], [place] [address] (Wo rk) Social History Tobacco Use Types Packs/Day Years Used Date Smoking Tobacco: Former Cigarettes 0.5 3 Cigars Smokeless Tobacco: Never Comments: Occasional cigar Alcohol Use Standard Drinks/Week Comments Yes 0 (1 standard drink = 0.6 oz pure alcoho l) Rare Sex Assigned at Date Recorded Not on file documented as of this encounter Nursing Notes Meggna Larson, LAVERN - 12/28/2012 5:44 PM CDT [...] on filedocumented in this encounter Care Teams Women'S Basketball Coach Relationship Specialty Start Date End Date Yaneth Dodd MD PCP - General 08/01/09 04/28/17 [address] [place] [address] documented as of this encounter
--- OUTSIDE RECORDS SUMMARY | 2022-02-09 09:09 | XMS_ITS | Encounter Summary ---
:1965 Author Organization [facility] Address [address] [place] [address] Care Team Providers Name Role Phone Yaneth Dodd MD Primary Care Provider Reason for Visit Reason Comments Refill Encounter Details Date Type Department Care Team Description 11/20/2012 Refill [facility] Yaneth Dodd MD Refill 42760 [facility] [address] [place], [place] [address] [place] [address] [phone] (Wo rk) Social History Tobacco Use Types [...] on filedocumented in this encounter Care Teams Consumer Education Specialist Relationship Specialty Start Date End Date Yaneth Dodd MD PCP - General 08/01/09 04/28/17 [address] [place] [address] documented as of this encounter
--- OUTSIDE RECORDS SUMMARY | 2022-02-09 09:09 | XMS_ITS | Encounter Summary ---
:1965 Author Organization [employer] Address [address] [place] [address] Care Team Providers Name Role Phone Yaneth Dodd MD Primary Care Provider Reason for Visit Reason Comments Refill Encounter Details Date Type Department Care Team Description 08/29/2013 Refill [facility] Yaneth Dodd MD Refill [address]24 [facility] [address] [place], [place] [address] [place] [address] [phone] (Wo rk) Social History Tobacco Use Types Packs/Day Years Used Date Smoking Tobacco: Former Cigarettes 0.5 3 Cigars Smokeless Tobacco: Never Comments: Occasional cigar Alcohol Use Standard Drinks/Week Comments Yes 0 (1 standard drink = 0.6 oz pure alcoho l) Rare Sex Assigned at Date Recorded Not on file documented as of this encounter Progress Notes Jose Juan Bailon GoGoVanoscarEpisencial Prov Query - 08/29/2013 3:28 PM CDT Order(s) created erroneously. Erroneous order ID: [id number] Order moved by: ANTONIO Dely Order move date/time: 08/29/2013 3:28 PM Source Patient: [id number] Source Contact: 08/29/2013 Destination Patient: [id number] Destination Contact: 08/29/2013 documented in this encounter [...] two times a day. (unchanged) Powered by Marketing Technology Concepts, Reference: [id number], 08/29/2013 3:32:01 PM CDT documented in this encounter Plan of Treatment Not on filedocumented as of this encounter Visit Diagnoses Not on filedocumented in this encounter Care Teams Senior Clinical Data Coordinator Relationship Specialty Start Date End Date Yaneth Dodd MD PCP - General 08/01/09 04/28/17 [address] [place] [address] documented as of this encounter
--- OUTSIDE RECORDS SUMMARY | 2022-02-09 09:09 | XMS_ITS | Encounter Summary ---
:1965 Author Organization [employer] Address [address] [place] [address] Care Team Providers Name Role Phone Yaneth Dodd MD Primary Care Provider Reason for Visit Reason Comments Refill Encounter Details Date Type Department Care Team Description 01/06/2014 Refill [facility] Briana Vazquez, PAAshleyC Refill 18593 [facility] [address] [place], [place] [address] [place] [address] [phone] (Wo rk) Social History Tobacco Use Types [...] two times a day. (unchanged) Powered by LocalCustomer, Reference: [id number], 01/06/2014 3:40:34 AM ZIAT, Hector: WYLIE RN ([id number]) SROOM WORKER documented in this encounter Plan of Treatment Not on filedocumented as of this encounter Visit Diagnoses Not on filedocumented in this encounter Care Teams Auto Parts Counter Person Relationship Specialty Start Date End Date Yaneth Dodd MD PCP - General 08/01/09 04/28/17 [address] [place] [address] documented as of this encounter
--- OUTSIDE RECORDS SUMMARY | 2022-02-09 09:09 | XMS_ITS | Encounter Summary ---
:1965 Author Organization [facility] Address [address] [place] [address] Care Team Providers Name Role Phone Yaneth Dodd MD Primary Care Provider Reason for Visit Reason Comments Refill Encounter Details Date Type Department Care Team Description 10/20/[address] [facility] Yaneth Ddod MD Refill [address]24 [facility] [address] [place], [place] [address] [place] [address] [phone] (Wo rk) Social History Tobacco Use Types Packs/Day Years Used Date Smoking Tobacco: Former Cigarettes 0.5 3 Cigars Smokeless Tobacco: Never Comments: Occasional cigar Alcohol Use Standard Drinks/Week Comments Yes 0 (1 standard drink = 0.6 oz pure alcoho l) Rare Sex Assigned at Date Recorded Not on file documented as of this encounter Nursing Notes Jaren Horton - 10/21/2012 8:15 AM CDT RN is unable to refill. HYDROcodone-acetaminophen (AKA NORCO) 5-325 MG tablet Date of last visit: 05/12/12 Last time med was ordered: Date: 09/21/12 Dispensed: 30 Number of refills: 0 Careplan: YES, copy of careplan: The patient suffers from chronic low back pain. Currently, he uses 30 tablets of hydrocodone 5-325 mg every month. He has been very compliant. documented in this encounter Plan of Treatment Not on filedocumented as of this encounter Visit Diagnoses Not on filedocumented in this encounter Care Teams Air Hole Driller Relationship Specialty Start Date End Date Yaneth Dodd MD PCP - General 08/01/09 04/28/17 [address] [place] [address] documented as of this encounter
--- OUTSIDE RECORDS SUMMARY | 2022-02-09 09:09 | XMS_ITS | Encounter Summary ---
:1965 Author Organization [employer] Address [address] [place] [address] Care Team Providers Name Role Phone Yaneth Dodd MD Primary Care Provider Reason for Visit Reason Comments Refill Encounter Details Date Type Department Care Team Description 02/23/[address] [facility] Yaneth Dodd MD Refill [address]34 [facility] [address] [place], [place] [address] [place] [address] [phone] (Wo rk) Social History Tobacco Use Types [...] a day. (unchanged) Powered by healthfinch, Reference: [id number], 02/24/2013 [place] AGENT documented in this encounter Plan of Treatment Not on filedocumented as of this encounter Visit Diagnoses Not on filedocumented in this encounter Care Teams Loss Prevention/Safety District Manager Relationship Specialty Start Date End Date Yaneth Dodd MD PCP - General 08/01/09 04/28/17 [address] [place] [address] documented as of this encounter
--- OUTSIDE RECORDS SUMMARY | 2022-02-09 09:09 | XMS_ITS | Encounter Summary ---
:1965 Author Organization [facility] Address [address] [place] [address] Care Team Providers Name Role Phone Yaneth Dodd MD Primary Care Provider Reason for Visit Reason Comments Refill Encounter Details Date Type Department Care Team Description 05/30/2013 Refill [facility] Yaneth Dodd MD Refill [address]957 [facility] [address] [place], [place] [address] [place] [address] [phone] (Wo rk) Social History Tobacco Use Types [...] set to Print on 05/04/2013.) Powered by Wigix, Reference: [id number], 05/30/2013 2:14:53 PM CDT Interface, Out Petsy Query - 05/30/2013 2:14 PM CDTThe following [...] filedocumented in this encounter Care Teams Information Resource Consultant Relationship Specialty Start Date End Date Yaneth Dodd MD PCP - General 08/01/09 04/28/17 [address] [place] [address] documented as of this encounter
--- OUTSIDE RECORDS SUMMARY | 2022-02-09 09:09 | XMS_ITS | Encounter Summary ---
:1965 Author Organization [facility] Address [address] [place] [address] Care Team Providers Name Role Phone Yaneth Dodd MD Primary Care Provider Reason for Visit Reason Onset Date Comments Refill 09/23/2012 Encounter Details Date Type Department Care Team Description 09/23/2012 Refill [facility] Yaneth Dodd MD Refill [address]138 [facility] [address] [place], [place] [address] [place] [address] [phone] (Wo rk) Social History Tobacco Use Types [...] on filedocumented in this encounter Care Teams Sanitary Engineering Teacher Relationship Specialty Start Date End Date Yaneth Dodd MD PCP - General 08/01/09 04/28/17 [address] [place] [address] documented as of this encounter
--- OUTSIDE RECORDS SUMMARY | 2022-02-09 09:09 | XMS_ITS | Encounter Summary ---
:1965 Author Organization [employer] Address [address] [place] [address] Care Team Providers Name Role Phone Yaneth Dodd MD Primary Care Provider Encounter Details Date Type Department Care Team Description 05/19/2013 Notes/Orders [facility] Yaneth Dodd [facility] refill Practice MD Sebastien (Primary Dx) [address] [address] [phone] Social History Tobacco Use Types Packs/Day Years [...] - NEXT LAB APPOINTMENT: None Powered by ustyme, Reference: [id number], 05/19/2013 3:31:32 AM CDT Interface, Out PlayFilm Query - 05/19/2013 3:31 AM CDT The [...] 06/19/2013 2:35 PM C DT Performed at [facility], [address] [place] [address] ??[address] Yaneth Dodd MD LAB_1 Performing Organization Address [facility] Phon e Number [facility] [phone] (ABNORMAL) LIPID PANEL AND DIRECT LDL(IF NEEDED) [...] 06/19/2013 2:35 PM C DT Performed at [facility], [address] [place] [address] ??[address] Yaneth Dodd MD LAB_1 Performing Organization Address [facility] Phon e Number [facility] [phone] CREATININE / GFR (06/17/2013 10:04 AM CDT) [...] 06/19/2013 2:35 PM C DT Performed at [facility], [address] [place] [address] ??[address] Yaneth Dodd MD LAB_1 Performing Organization Address [facility] Code Phon e Number [facility] [phone] POTASSIUM (06/17/2013 10:04 AM CDT) athologist Signature Potassium 4.4 3.5 - 5.3 [facility] mmol/L Specimen Anatomical Collection Method Collection Time Receive d Time (Source) Location / / Volume Laterality 06/17/2013 10:04 06/17/2013 AM CDT 10:07 AM CDT Narrative [facility] - 06/19/2013 2:35 PM C DT Performed at [facility], [address] [place] [address] ??[address] Yaneth Dodd MD LAB_1 Performing Organization Address [facility] Code Phon e Number [facility] [phone] documented in this encounter Visit Diagnoses Diagnosis Medication refill - Primary Issue of repeat prescriptions Medication refill Issue of repeat prescriptions documented in this encounter Care Teams Outreach Librarian Relationship Specialty Start Date End Date Yaneth Dodd MD PCP - General 08/01/09 04/28/17 [address] [place] [address] documented as of this encounter
--- OUTSIDE RECORDS SUMMARY | 2022-02-09 09:09 | XMS_ITS | Encounter Summary ---
:1965 Author Organization [facility] Address [address] [place] [address] Care Team Providers Name Role Phone Yaneth Strong MD Primary Care Provider Reason for Visit Reason Onset Date Comments RESULTS, TEST 07/04/2013 Encounter Details Date Type Department Care Team Description 07/04/2013 Telephone [facility] Chris Strong MD RESULTS, TEST Practice [address] [facility] [address] [place] [address] [place] [address] [phone] Social History Tobacco Use Types Packs/Day Years [...] on filedocumented in this encounter Care Teams Surveillance Inspector Relationship Specialty Start Date End Date Yaneth Strong MD PCP - General 08/01/09 04/28/17 [address] [place] [address] documented as of this encounter
--- OUTSIDE RECORDS SUMMARY | 2022-02-09 09:09 | XMS_ITS | Encounter Summary ---
:1965 Author Organization [facility] Address [address] [place] [address] Care Team Providers Name Role Phone Yaneth Dodd MD Primary Care Provider Reason for Visit Reason Comments Refill Encounter Details Date Type Department Care Team Description 02/17/2013 Refill [facility] Mervin Mckeon MD Refill Medicine [address] [place] [address] [place] [address] [place] [address] [phone] Social History Tobacco Use Types Packs/Day Years [...] hours as needed for pain (changed) Reference: [id number] Powered by Refinder by Gnowsis O CAMERA OPERATOR Interface, Out Zawatt Query - 02/17/2013 1:05 PM CSTThe following is the most recent Careplan note pulled in Raquel: The patient suffers from chronic low back pain. Currently, he uses 30tablets of hydrocodone 5-325 mg every month. He has been very compliant. O CAMERA OPERATOR documented in this encounter ED Notes Interface, Out Zawatt Query - 02/17/2013 1:05 PM CST Order(s) created erroneously. Erroneous order ID: [id number] Order moved by: ANTONIOSmartStay, Inc Order move date/time: 02/17/2013 1:05 PM Source Patient: [id number] Source Contact: 02/17/2013 Destination Patient: [id number] Destination Contact: 02/17/2013 O CAMERA OPERATOR documented in this encounter Plan of Treatment Not on filedocumented as of this encounter Visit Diagnoses Not on filedocumented in this encounter Care Teams Customer Success Specialist Relationship Specialty Start Date End Date Yaneth Dodd MD PCP - General 08/01/09 04/28/17 [address] [place] [address] documented as of this encounter
--- OUTSIDE RECORDS SUMMARY | 2022-02-09 09:09 | XMS_ITS | Encounter Summary ---
:1965 Author Organization [facility] Address [address] [place] [address] Care Team Providers Name Role Phone Yaneth Dodd MD Primary Care Provider Reason for Visit Reason Onset Date Comments ERRONEOUS ENTRY 09/22/2012 Encounter Details Date Type Department Care Team Description 09/22/2012 Telephone [facility] Chris Dodd MD ERRONEOUS ENTRY Practice [address] [facility] [address] [place] [address] [place], [place] [address] [phone] Social History Tobacco Use Types Packs/Day Years [...] on filedocumented in this encounter Care Teams Enterprise Services Manager Relationship Specialty Start Date End Date Yaneth Dodd MD PCP - General 08/01/09 04/28/17 [address] [place] [address] documented as of this encounter
--- OUTSIDE RECORDS SUMMARY | 2022-02-09 09:09 | XMS_ITS | Encounter Summary ---
:1965 Author Organization [facility] Address [address] [place] [address] Care Team Providers Name Role Phone Yaneth Dodd MD Primary Care Provider Reason for Visit Reason Comments Refill Encounter Details Date Type Department Care Team Description 05/19/2013 Refill [facility] Yaneth Dodd MD Refill [address] [facility] [address] [place] [address] [place] [address] [phone] (Wo rk) Social History Tobacco Use Types [...] ACTIONS TAKEN: - OFFICE VISIT (Sent to RateElertILLWarrantlyRD Lymbix) - ALT for fenofibrate (AKA TRIGLIDE) 160 MG tablet (Sent to Knomo REFILLWIZARD RUBBER ENGRAVER POOL) - LIPID PANEL (12 HR. FASTING) for fenofibrate (AKA TRIGLIDE) 160 MG tablet (Sent to HP REFILLWIZARDCMA POOL) - K for lisinopril (AKA ZESTRIL) 20 MG tablet (Sent to Knomo REFILLWIZARD RUBBER ENGRAVER POOL) - CR for lisinopril (AKA ZESTRIL) 20 MG tablet (Sent to Knomo REFILLWIZARD RUBBER ENGRAVER POOL) - BLOOD PRESSURE for lisinopril (AKA ZESTRIL) 20 MG tablet (Sent to Knomo REFILLWIZARD RUBBER ENGRAVER POOL) Powered by Lot18, Reference: [id number], 05/19/2013 3:31:32 AM CDT Interface, Out Quality Practice Prov Query - 05/19/2013 3:31 AM CDT The following lab order(s) may be associated with the Patient Result Comment below: BASIC METABOLIC PANEL Your labs are normal. documented in this encounter Plan of Treatment Not on filedocumented as of this encounter Visit Diagnoses Not on filedocumented in this encounter Care Teams Turbo Operator Relationship Specialty Start Date End Date Yaneth Dodd MD PCP - General 08/01/09 04/28/17 [address] [place] [address] documented as of this encounter
--- OUTSIDE RECORDS SUMMARY | 2022-02-09 09:09 | XMS_ITS | Encounter Summary ---
:1965 Author Organization [employer] Address [address] [place] [address] Care Team Providers Name Role Phone Yaneth Dodd MD Primary Care Provider Reason for Visit Reason Comments Refill Encounter Details Date Type Department Care Team Description 05/03/[address] [facility] Yaneth Dodd MD Refill [address]89 [facility] [address] [place], [place] [address] [place] [address] [phone] (Wo rk) Social History Tobacco Use Types [...] as needed for pain (changed) Powered by Ascletis, Reference: [id number], 05/03/2013 9:20:00 AM RN ON SITE ON SITE Interface, Out Vidable Query - 05/03/2013 9:20 AM CSTThe following is the most recent Careplan note pulled in byBib: The patient suffers from chronic low back pain. Currently, he uses 30tablets of hydrocodone 5-325 mg every month. He has been very compliant. ON SITE documented in this encounter Plan of Treatment Not on filedocumented as of this encounter Visit Diagnoses Not on filedocumented in this encounter Care Teams Creel Clerk Relationship Specialty Start Date End Date Yaneth Dodd MD PCP - General 08/01/09 04/28/17 [address] [place] [address] documented as of this encounter
--- OUTSIDE RECORDS SUMMARY | 2022-02-09 09:09 | XMS_ITS | Encounter Summary ---
:1965 Author Organization [employer] Address [address], [place] [address] Care Team Providers Name Role Phone Yaneth Dodd MD Primary Care Provider Encounter Details Date Type Department Care Team Description 06/17/2013 Orders Only [facility] Medication refill [address] [place], [place] [address] Social History Tobacco Use [...] 06/19/2013 7:32 PM C DT Performed at [facility], [address] [place] [address] ??[id number] Yaneth Dodd MD LAB_1 Performing Organization Address [facility] Phon e Number [facility] [phone] ALKALINE PHOSPHATASE, TOTAL (06/17/2013 10:04 AM CDT) Patholo gist Method Time Signature Alkaline 47 38 - 126 [facility] Phosphatase U/L [facility] Specimen Anatomical Collection Method Collection Time Receive d Time (Source) Location / / Volume Laterality 06/17/2013 10:04 06/17/2013 AM CDT 10:07 AM CDT Narrative [facility] - 06/19/2013 7:32 PM C DT Performed at [facility], [address] [place] [address] ??[address] Yaneth Dodd MD LAB_1 Performing Organization Address City/[facility]/ZIP [facility] Phon e Number [facility] [phone] (ABNORMAL) ALT (SGPT) (06/17/2013 10:04 AM CDT) P athologist Signature ALT (SGPT) 91 (H) 0 - 69 U/L [facility] Specimen Anatomical Collection Method Collection Time Receive d Time (Source) Location / / Volume Laterality 06/17/2013 10:04 06/17/2013 AM CDT 10:07 AM CDT Narrative [facility] - 06/19/2013 2:35 PM C DT Performed at [facility], [address] [place] [address] ??[address] Yaneth Dodd MD LAB_1 Performing Organization Address City/[facility] Phon e Number [facility] [phone] (ABNORMAL) LIPID PANEL AND DIRECT LDL(IF NEEDED) [...] 06/19/2013 2:35 PM C DT Performed at [facility], [address] [place] [address] ??[address] Yaneth Dodd MD LAB_1 Performing Organization Address City/[facility]/ZIP [facility] Phon e Number [facility] [phone] CREATININE / GFR (06/17/2013 10:04 AM CDT) [...] 06/19/2013 2:35 PM C DT Performed at [facility], [address] [place] [address] ??[phone] Yaneth Dodd MD LAB_1 Performing Organization Address [facility] Code Phon e Number [facility] [phone] POTASSIUM (06/17/2013 10:04 AM CDT) athologist Signature Potassium 4.4 3.5 - 5.3 [facility] mmol/L Specimen Anatomical Collection Method Collection Time Receive d Time (Source) Location / / Volume Laterality 06/17/2013 10:04 06/17/2013 AM CDT 10:07 AM CDT Narrative [facility] - 06/19/2013 2:35 PM C DT Performed at [facility], [address] [place] [address] ??[address] Yaneth Dodd MD LAB_1 Performing Organization Address City/[facility] Phon e Number [facility] [phone] documented in this encounter Visit Diagnoses Diagnosis Medication refill Issue of repeat prescriptions documented in this encounter Care Teams Mailing Machine Helper Relationship Specialty Start Date End Date Yaneth Dodd MD PCP - General 08/01/09 04/28/17 [address] [place] [address] documented as of this encounter
--- OUTSIDE RECORDS SUMMARY | 2022-02-09 09:09 | XMS_ITS | Encounter Summary ---
:1965 Author Organization [facility] Address [address] [place] [address] Care Team Providers Name Role Phone Yaneth Dodd MD Primary Care Provider Reason for Visit Reason Comments Refill Encounter Details Date Type Department Care Team Description 02/05/2014 Refill [facility] Yaneth Dodd MD Refill 5[address]27 [facility] [address] [place], [place] [address] [place] [address] [phone] (Wo rk) Social History Tobacco Use Types [...] None Exists - LAST QUALIFYING VISIT IN [facility]: 11/15/2013 - NEXT SCHEDULED VISIT: None - LAST REFILLED ON: 01/06/2014, QTY: 60, Refills: 0, Sig: take 1 tablet by mouth two times a day. (unchanged) Powered by [employer], Reference: [id number], 02/05/2014 3:46:30 AM Hector CENTENO: WYLIE RN ([id number]) Electronically signed by Interface, Out [employer] Prov Query at 02/05/2014 7:47 AM JACOBO documented in this encounter Plan of Treatment Not on filedocumented as of this encounter Visit Diagnoses Not on filedocumented in this encounter Care Teams Business Continuity Coordinator Relationship Specialty Start Date End Date Yaneth Dodd MD PCP - General 08/01/09 04/28/17 [address] [place] [address] documented as of this encounter
--- OUTSIDE RECORDS SUMMARY | 2022-02-09 09:09 | XMS_ITS | Encounter Summary ---
:1965 Author Organization [facility] Address [address] [place] [address] Care Team Providers Name Role Phone Yaneth Dodd MD Primary Care Provider Reason for Visit Reason Comments PRE-OP EXAM Encounter Details Date Type Department Care Team Description 11/15/2013 Office Visit [facility] Yaneth Dodd specified pre-operative examination (Primary Dx); Criselda Crowe MD Sleep disturbance [address] [place] [address] [phone] Social History Tobacco Use Types Packs/Day Years [...] on 11/23/[address] Bogdan Thomas at [facility] FAX:[phone]. Pertinent history: 47-year-old male admitted for left [...] risk assessment Preoperative cardiac evaluation algorithm from [facility] CC: documented in this encounter Plan of Treatment Not on filedocumented as of this encounter Results (ABNORMAL) UA MICRO IF (11/15/2013 10:41 AM CDT) [facility] gist Method Time Signature Urine Color [...] - 11/15/2013 11:28 AM CDT Performed at [facility], [address] [facility], [place] [address] Yaneth Dodd MD LAB_1 Performing Organization Address City/State/ZIP Code Phon e Number [facility] [phone] (ABNORMAL) HEMOGRAM/PLTS (11/15/2013 10:41 AM CDT) athologist [...] 11/15/2013 3:20 PM C DT Performed at [facility], [address] [place] [address] ??[phone] Yaneth Dodd MD LAB_1 Performing Organization Address City/State/[facility] Code Phon e Number [facility] [phone] documented in this encounter Visit Diagnoses Diagnosis Other specified pre-operative examinatio n - Primary Sleep disturbance Sleep disturbance, unspecified Other specified pre-operative examinatio n documented in this encounter Care Teams Chef Head Relationship Specialty Start Date End Date Yaneth Dodd MD PCP - General 08/01/09 04/28/17 [address] [place] [address] documented as of this encounter
--- OUTSIDE RECORDS SUMMARY | 2022-02-09 09:09 | XMS_ITS | Encounter Summary ---
:1965 Author Organization [employer] Address [address] [place] [address] Care Team Providers Name Role Phone Yaneth Dodd MD Primary Care Provider Reason for Visit Reason Comments Refill Encounter Details Date Type Department Care Team Description 07/30/2013 Refill [facility] Yaneth Dodd MD Refill [address]81 [facility] [address] [place], [place] [address] [place] [address] [phone] (Wo rk) Social History Tobacco Use Types [...] set to Print on 06/30/2013.) Powered by [employer], Reference: [id number], 07/30/2013 9:30:52 AM CDT 07/30/2013 9:28 AM [...] on filedocumented in this encounter Care Teams Health Services Director Relationship Specialty Start Date End Date Yaneth Dodd MD PCP - General 08/01/09 04/28/17 [address] [place] [address] documented as of this encounter
--- OUTSIDE RECORDS SUMMARY | 2022-02-09 09:09 | XMS_ITS | Encounter Summary ---
:1965 Author Organization [employer] Address [address] [place] [address] Care Team Providers Name Role Phone Yaneth Dodd MD Primary Care Provider Reason for Visit Reason Comments Refill Encounter Details Date Type Department Care Team Description 12/07/2013 Refill [facility] Yaneth Dodd MD Refill [address]69 [facility] [address] [place], [place] [address] [place] [address] [phone] (Wo rk) Social History Tobacco Use Types [...] two times a day. (unchanged) Powered by [employer], Reference: [id number], 12/07/2013 4:01:34 AM CDT, Pool: WYLIE RN ([id number]) documented in this encounter Plan of Treatment Not on filedocumented as of this encounter Visit Diagnoses Not on filedocumented in this encounter Care Teams Student Union Consultant Relationship Specialty Start Date End Date Yaneth Dodd MD PCP - General 08/01/09 04/28/17 [address] [place] [address] documented as of this encounter
--- OUTSIDE RECORDS SUMMARY | 2022-02-09 09:09 | XMS_ITS | Encounter Summary ---
:1965 Author Organization [facility] Address [address] [place] [address] Care Team Providers Name Role Phone Yaneth Dodd MD Primary Care Provider Encounter Details Date Type Department Care Team Description 06/19/2013 Orders Only [place] [facility] Yaneth Dodd [facility] Practice MD Sebastien test (Primary Dx) [address] [facility] [address] [place], [place] [address] [place], [place] [phone] Social History Tobacco Use Types Packs/Day Years [...] finding documented in this encounter Care Teams Internal Sales Relationship Specialty Start Date End Date Yaneth Dodd MD PCP - General 08/01/09 04/28/17 [address] [place], [place] [id number] documented as of this encounter
--- OUTSIDE RECORDS SUMMARY | 2022-02-09 09:09 | XMS_ITS | Encounter Summary ---
:1965 Author Organization [facility] Address [address], [place] [address] Care Team Providers Name Role Phone Yaneth Dodd MD Primary Care Provider Reason for Visit Reason Onset Date Comments Refill 11/08/2013 Valacyclovir Encounter Details Date Type Department Care Team Description 11/08/2013 Refill [facility] Yaneth Dodd R efill (Valacyclovir) Practice [address] [place] [address] [place], [place] [phone] (Wo rk) Social History Tobacco Use Types [...] Simplex Virus (HSV) - LAST VISIT IN [facility]: 05/12/2012 - NEXT SCHEDULED VISIT: None - LAST REFILLED ON: 05/03/2012, QTY: 60, Refills: 6, Sig: take 1 tab by mouth two times a day. (unchanged) - Renal Insufficiency: false Powered by [employer], Reference: [id number], 11/08/2013 1:04:36 PM CDT, Pool: WYLIE RN ([id number]) documented in this encounter Plan of Treatment Not on filedocumented as of this encounter Visit Diagnoses Not on filedocumented in this encounter Care Teams Cnmt Relationship Specialty Start Date End Date Yaneth Dodd MD PCP - General 08/01/09 04/28/17 [address] [place] [address] documented as of this encounter
--- OUTSIDE RECORDS SUMMARY | 2022-02-09 09:10 | XMS_ITS | Encounter Summary ---
:1965 Author Organization [facility] Address [address] [place] [address] Care Team Providers Name Role Phone Yaneth Dodd MD Primary Care Provider Reason for Visit Reason Comments Refill Encounter Details Date Type Department Care Team Description 08/10/2011 Refill [facility] Yaneth Dodd MD Refill 60909 [facility] [address] [place], [place] [address] [place] [address] [phone] (Wo rk) Social History Tobacco Use Types [...] on filedocumented in this encounter Care Teams Cyber Defense Analyst Relationship Specialty Start Date End Date Yaneth Dodd MD PCP - General 08/01/09 04/28/17 [address] [place] [address] documented as of this encounter
--- OUTSIDE RECORDS SUMMARY | 2022-02-09 09:10 | XMS_ITS | Encounter Summary ---
:1965 Author Organization [facility] Address [address] [place] [address] Care Team Providers Name Role Phone Yaneth Dodd MD Primary Care Provider Reason for Visit Reason Onset Date Comments PROFESSIONAL DRIVER Request 05/03/2012 Encounter Details Date Type Department Care Team Description 05/03/2012 Pharmacy [place] [facility] y Nan Verdin PROFESSIONAL DRIVER Request [address]65 [facility] [address] [place], [place] [address] [place] [address] [phone] (Wo rk) Social History Tobacco Use Types [...] care team on 05/11/12. Nan Wren PHARMD STOCK PRODUCER Inocencia Cherry - 05/03/2012 11:55 AM CST Can you please pull the information from the Prescription Monitoring Program for this patient: Theirappt. is on May [address] Dodd. STOCK PRODUCER documented in this encounter Plan of Treatment Not on filedocumented as of this encounter Visit Diagnoses Not on filedocumented in this encounter Care Teams Latin American Studies Professor Relationship Specialty Start Date End Date Yaneth Dodd MD PCP - General 08/01/09 04/28/17 [address] [place] [address] documented as of this encounter
--- OUTSIDE RECORDS SUMMARY | 2022-02-09 09:10 | XMS_ITS | Encounter Summary ---
:1965 Author Organization [employer] Address [address] [place] [address] Care Team Providers Name Role Phone Yaneth Dodd MD Primary Care Provider Reason for Visit Reason Comments Consult, New Patient Encounter Details Date Type Department Care Team Description 07/07/2012 Office Visit [place], Nadeem GERD (luis roesophageal reflux disease) (Primary Dx); Gastroenterology AMD Body odor [address] [facility] [address] [address], [place] [address] [address] [place] [address] Social History Tobacco Use Types [...] Body Mass Index 26.04 05/03/2012 10:17 AM DRUG SAFETY ASSOCIATE documented in this encounter Patient Instructions Patient [...] clinic visit. Thank you for visiting the [facility]. Should you have any questions or concerns please call my office during business hours at [phone] and leave a message along with a phone number where you can be reached during the day and a member of my care team will contact you. If you need assistance after business hours you can speak with a registered nurse by calling the Careline at [phone]. In addition we provide services after hours at the [facility] at our walk-in Urgent Care. Urgent Care Clinic hours are: Mon-Wed 5:00pm-9:00pm Wednesday 9:00am-5:00pm Wednesday Noon-5:00 pm To schedule an appointment please call [phone]. documented in this encounter Progress Notes Chavo Rios MD - 07/07/2012 1:41 PM CDT GASTROENTEROLOGY CONSULT NOTE DATE OF SERVICE: 07/07/2012 Nicanor Alvarado is a 46 yr old male who is seen as a consult by Dr. Yaneth Dodd for evaluation of acid reflux and foul body odor. See the dictated note # [id number] for HPI , assessment and plan. REVIEW [...] Dictated: 07/12/2012 15:18:10 Transcribed: 07/13/2012 01:17:10 Job: [id number] Doc: [id number] cc: Yaneth Dodd MD, Referring Provider documented in this encounter Plan of Treatment Not on filedocumented as of this encounter Visit Diagnoses Diagnosis GERD (gastroesophageal reflux disease) - Primary Esophageal reflux Body odor Other specified disorder of sweat glands documented in this encounter Care Teams Slat Basket Maker Helper Machine Relationship Specialty Start Date End Date Yaneth Dodd MD PCP - General 08/01/09 04/28/17 [address] [place] [address] documented as of this encounter
--- OUTSIDE RECORDS SUMMARY | 2022-02-09 09:10 | XMS_ITS | Encounter Summary ---
:1965 Author Organization [facility] Address [address] [address] Care Team Providers Name Role Phone Yaneth Dodd MD Primary Care Provider Encounter Details Date Type Department Care Team Description 05/06/2012 Orders Only [place] Hyperlipidemia LDL goal < 13 0; [address] [facility]pert[facility]; [place], [place] [address] Decreased libido [phone] Social History Tobacco Use Types Packs/Day Years [...] R esults for this ,FREE & AM LAND PLANNER procedure are i n BIOAVAILABLE, the results MALES section. LIPID PANEL AND Routine 05/06/2012 10:21 Hyperlipidemia LDL go al Results for this DIRECT LDL(IF AM LAND PLANNER < 130 procedure are in NEEDED) the results section. BASIC METABOLIC Routine 05/06/2012 10:21 Hypertension Results for this PANEL AM LAND PLANNER procedure are i n the results section. ALT (SGPT) Routine 05/06/2012 10:21 Hyperlipidemia LDL goal Results for this AM LAND PLANNER < 130 procedure are i n the results section. documented in this encounter Results BASIC METABOLIC PANEL (05/06/2012 10:21 AM LAND PLANNER) Analysis Performed At [facility] Time Signature BUN 16 7 - [...] / Volume Laterality 05/06/2012 10:21 05/06/2012 AM LAND PLANNER 10:25 AM LAND PLANNER Yaneth Dodd MD LAB_1 Performing Organization Address [facility] Phon e Number [facility] [phone] [phone] TESTOSTERONE,TOTAL,FREE & BIOAVAILABLE (05/06/2012 10:21 AM LAND PLANNER) athologist Signature Sex Horm Bind 27 13 - 74 [facility] Glob nmol/L Testosterone, 273 183 - 703 [facility] Total ng/dl Testosterone, 6.0 3.8 - 12.8 [facility] Free ng/dl Testosterone, 140.0 89.0 - [facility] Bioav. 300.0 ng/dl Specimen Anatomical Collection Method Collection Time Receive d Time (Source) Location / / Volume Laterality 05/06/2012 10:21 05/06/2012 AM LAND PLANNER 10:25 AM LAND PLANNER Yaneth Dodd MD LAB_1 Performing Organization Address [facility] Phon e Number [facility] [phone] [phone] ALT (SGPT) (05/06/2012 10:21 AM LAND PLANNER) P athologist Signature ALT (SGPT) 36 0 - 69 U/L [facility] Specimen Anatomical Collection Method Collection Time Receive d Time (Source) Location / / Volume Laterality 05/06/2012 10:21 05/06/2012 AM LAND PLANNER 10:25 AM LAND PLANNER Yaneth Dodd MD LAB_1 Performing Organization Address City/[facility] Phon e Number [facility] [phone] [facility] [address] [address] (ABNORMAL) LIPID PANEL AND DIRECT LDL (05/06/2012 10:21 AM LAND PLANNER) [facility] gist Method Time Signature Cholesterol 184 0 - 199 [facility] mg/dl Triglyceride 96 0 - 149 [facility] mg/dl HDL 39 (L) >40 mg/dl [facility] LDL, Calc. 126 0 - 129 [facility] mg/dl Non HDL Chol, 145 mg/dl [facility] Calc Hours Fasting 12 hours [facility] Specimen Anatomical Collection Method Collection Time Receive d Time (Source) Location / / Volume Laterality 05/06/2012 10:21 05/06/2012 AM LAND PLANNER 10:25 AM LAND PLANNER Yaneth Dodd MD LAB_1 Performing Organization Address City/[facility] Phon e Number [facility] [phone] [address] documented in this encounter Visit Diagnoses Diagnosis Hyperlipidemia LDL goal < 130 (HRC) Other and unspecified hyperlipidemia Hypertension ([facility]) Unspecified essential hypertension Decreased libido documented in this encounter Care Teams Terminal Operations Manager Relationship Specialty Start Date End Date Yaneth Dodd MD PCP - General 08/01/09 04/28/17 [address] [place] [address] documented as of this encounter
--- OUTSIDE RECORDS SUMMARY | 2022-02-09 09:10 | XMS_ITS | Encounter Summary ---
:1965 Author Organization [facility] Address [address] [place] [address] Care Team Providers Name Role Phone Yaneth Dodd MD Primary Care Provider Reason for Visit Reason Comments Refill Encounter Details Date Type Department Care Team Description 07/21/2011 Refill [facility] Yaneth Dodd MD Refill [address] [facility] [address] [place], [place] [address] [place] [address] [phone] (Wo rk) Social History Tobacco Use Types [...] filedocumented in this encounter Care Teams Facilities Specialist Relationship Specialty Start Date End Date Yaneth Dodd MD PCP - General 08/01/09 04/28/17 [address] [place] [address] documented as of this encounter
--- OUTSIDE RECORDS SUMMARY | 2022-02-09 09:10 | XMS_ITS | Encounter Summary ---
:1965 Author Organization [facility] Address [address] [place] [address] Care Team Providers Name Role Phone Yaneth Dodd MD Primary Care Provider Reason for Visit Reason Comments Refill Encounter Details Date Type Department Care Team Description 08/16/2012 Refill [facility] Yaneth Dodd MD Refill [address] [facility] [address] [place], [place] [address] [place] [address] [phone] (Wo rk) Social History Tobacco Use Types [...] on filedocumented in this encounter Care Teams Team Driver Relationship Specialty Start Date End Date Yaneth Dodd MD PCP - General 08/01/09 04/28/17 [address] [place] [address] documented as of this encounter
--- OUTSIDE RECORDS SUMMARY | 2022-02-09 09:10 | XMS_ITS | Encounter Summary ---
:1965 Author Organization [facility] Address [address] [place] [address] Care Team Providers Name Role Phone Yaneth Dodd MD Primary Care Provider Encounter Details Date Type Department Care Team Description 05/25/2012 Notes/Orders [facility] Ninfa Matos RN, PT CARE COORDINATION - Practice [facility] [address] [place] [id number] [place] [address] (Primary Dx) [place] [address] [id number] Social History Tobacco Use Types Packs/Day Years [...] Diagnoses Diagnosis PT CARE COORDINATION - [facility] - Primary dummy codes documented in this encounter Care Teams Shearing Machine Operator Relationship Specialty Start Date End Date Yaneth Dodd MD PCP - General 08/01/09 04/28/[id number] [place] [address] documented as of this encounter
--- OUTSIDE RECORDS SUMMARY | 2022-02-09 09:10 | XMS_ITS | Encounter Summary ---
:1965 Author Organization [employer] Address [address] [place] [address] Care Team Providers Name Role Phone Yaneth Dodd MD Primary Care Provider Reason for Visit Reason Comments EAR,PLUGGED left ear x 3 days Encounter Details Date Type Department Care Team Description 08/27/2012 Office Visit [facility] Left ot itis media (Primary Dx); [place] Allergic rhinitis [address] [place], [place] [address] Social History Tobacco Use [...] Where can you learn more? Go to [employer] and enter [id number] in the search box. Last Revised: February 11, 2010 ?? [phone] [employer]. Allergies: After Your Visit Your Care [...] pollen counts are high. Use a vacuum laboratory equipment cleaner witha HEPA filter or a double-thickness filter [...] Where can you learn more? Go to [employer] and enter [id number] in the search box. Last Revised: May 15, 2011 ?? [phone] [employer] documented in this encounter Progress Notes Kat [...] unspecified documented in this encounter Care Teams Senior Field Engineer Relationship Specialty Start Date End Date Yaneth Dodd MD PCP - General 08/01/09 04/28/17 [address] [place] [address] documented as of this encounter
--- OUTSIDE RECORDS SUMMARY | 2022-02-09 09:10 | XMS_ITS | Encounter Summary ---
:1965 Author Organization [facility] Address [address], [place] [address] Care Team Providers Name Role Phone Yaneth Dodd MD Primary Care Provider Encounter Details Date Type Department Care Team Description 05/05/2012 [facility] [place] [address] [facility] [address] [place], [place] [address] [place] [address] [phone] (Wo rk) Social History Tobacco Use Types [...] on filedocumented in this encounter Care Teams Crystalizer Operator Relationship Specialty Start Date End Date Yaneth Dodd MD PCP - General 08/01/09 04/28/17 [address] [place] [address] documented as of this encounter
--- OUTSIDE RECORDS SUMMARY | 2022-02-09 09:10 | XMS_ITS | Encounter Summary ---
:1965 Author Organization [facility] Mexico[facility] Address [address] [place] [address] Care Team Providers Name Role Phone Yaneth Dodd MD Primary Care Provider Reason for Visit Reason Comments CP Controlled Substance Assessment Consult/Transfer Care (Routine) - Closed Specialty Diagnoses / Procedures Referred By Contact Refer red To Contact Diagnoses [place] [address] [place], [place] [address] Referral ID Status Reason Start Date Expiration Date Visits Requ ested Visits Authorized [id number] Closed 05/03/2012 1 1 Encounter Details Date Type Department Care Team Description 05/12/2012 Office Visit [facility] Yaneth Dodd duarte low back pain (Primary Dx); Criselda Crowe MD Screening; [address] [facility] [id number] [place] [address] Controlled [place] [address] [phone] Social History Tobacco Use Types Packs/Day Years [...] were answered. He will follow as needed. BENDER documented in this encounter Plan of Treatment Not on filedocumented as of this encounter Results DRUG SCREEN-PAIN MANAGEMENT, URINE (05/12/2012 10:37 AM RIB BENDER) Component Value Ref Test Analysis Performed At [facility] Range Method Time Signature Drug Screen, Urine [...] NERS pH Urine,Tox 6.7 [facility] Performed at [facility] Creatinine 43.7 mg/dL [facility] Urine,Tox Comment: Performed at [facility] Codeine TLD Unknown [facility] Morphine TLD Unknown [facility] Hydrocodone TLD Unknown [facility] Hydromorphone TLD Unknown [facility] Oxycodone TLD Unknown [facility] Oxymorphone TLD Unknown [facility] Specimen Anatomical Collection Method Collection Time Receive d Time (Source) Location / / Volume Laterality Urine specimen 05/12/2012 10:37 3 (specimen) AM RIB BENDER 10:38 AM RIB BENDER Yaneth Dodd MD LAB_1 Performing Organization Address City/State/ZIP Code Phon e Number [facility] [phone] [address] documented in this encounter Visit Diagnoses Diagnosis Chronic low back pain - Primary Lumbago Screening Screening for unspecified condition Controlled substance agreement signed Encounter for long-term (current) use of other medications documented in this encounter Care Teams Chief Legal Officer Relationship Specialty Start Date End Date Yaneth Dodd MD PCP - General 08/01/09 04/28/17 [address] [place], [place] [id number] documented as of this encounter
--- OUTSIDE RECORDS SUMMARY | 2022-02-09 09:10 | XMS_ITS | Encounter Summary ---
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 YES [Office Administrator: Communicate to patient: Forms may take up to 7-10 business days to complete. We will complete it as soon as possible and return to the location you requested] RHOUSE ENGINEER documented in this encounter Plan of Treatment Not on filedocumented as of this encounter Visit Diagnoses Not on filedocumented in this encounter Care Teams Bottler Relationship Specialty Start Date End Date Yaneth Dodd MD PCP - General 08/01/09 04/28/17 [address] [place] [address] documented as of this encounter
--- OUTSIDE RECORDS SUMMARY | 2022-02-09 09:10 | XMS_ITS | Encounter Summary ---
:1965 Author Organization [facility] Address [address] [place] [address] Care Team Providers Name Role Phone Yaneth Dodd MD Primary Care Provider Reason for Referral Consult/Transfer Care (Routine) - Closed Specialty Diagnoses / Procedures Referred By Contact Refer red To Contact Diagnoses [place] [address] [place], [place] [address] Referral ID Status Reason Start Date Expiration Date Visits Requ ested Visits Authorized [id number] Closed 05/03/2012 1 1 Scheduling Instructions If scheduling assistance is needed, yazmin manuel inquire with the medical office staff upon exiting your appointment or contact the ordering clinic. INSPECTOR Reason for Visit Reason Comments MEDICATION CHECK Encounter Details Date Type Department Care Team Description 05/03/[address] [facility] Yaneth Dodd duarte low back pain (Primary Dx); Criselda Crowe MD Hyperlipidemia LDL goal < 130; [address] [facility] [address] [facility] Hypertension; [place], [place] Decreas ed libido [address] [phone] Social History Tobacco Use Types Packs/Day Years [...] Comments Blood Pressure 111/76 05/03/2012 10:17 AM COKE INSPECTOR Pulse 69 05/03/2012 10:17 AM COKE INSPECTOR Temperature 36.7 ??C (98.1 ??F) 05/03/2012 10:17 AM COKE INSPECTOR Respiratory Rate - - Oxygen Saturation - - Inhaled Oxygen Concentration - - Weight 90.3 kg (199 lb) 05/03/2012 10:17 AM COKE INSPECTOR Height 185.4 cm (6' 1) 05/03/2012 10:17 AM COKE INSPECTOR Body Mass Index 26.25 05/03/2012 10:17 AM COKE INSPECTOR documented in this encounter Progress Notes [...] soon. 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 Objective:BP 111/76 Pulse 69 Temp(Src) 98.1 ??F [...] I will add this to his labs. INSPECTOR documented in this encounter Plan of Treatment Scheduled Referrals Name Type Priority Associated Diagnoses Order S soni CP CONTROLLED SUBSTANCE Referral Routine Chronic Low Back Pain Ordered: 05/03/2012 ASSESSMENT VISIT documented as of this encounter Results BASIC METABOLIC PANEL (05/06/2012 10:21 AM COKE INSPECTOR) Analysis Performed At Patho logist Time Signature [...] / Volume Laterality 05/06/2012 10:21 05/06/2012 AM COKE INSPECTOR 10:25 AM COKE INSPECTOR Yaneth Dodd MD LAB_1 Performing Organization Address City/[facility] Phon e Number [facility] [employer] [phone] [address] TESTOSTERONE,TOTAL,FREE & BIOAVAILABLE (05/06/2012 10:21 AM COKE INSPECTOR) P athologist Signature Sex Horm Bind 27 13 - 74 [facility] Glob nmol/L Testosterone, 273 183 - 703 [facility] Total ng/dl Testosterone, 6.0 3.8 - 12.8 [facility] Free ng/dl Testosterone, 140.0 89.0 - [facility] Bioav. 300.0 ng/dl Specimen Anatomical Collection Method Collection Time Receive d Time (Source) Location / / Volume Laterality 05/06/2012 10:21 05/06/2012 AM COKE INSPECTOR 10:25 AM COKE INSPECTOR Yaneth Dodd MD LAB_1 Performing Organization Address City/[facility] Phon e Number [facility] [employer] [phone] [address] documented in this encounter Visit Diagnoses Diagnosis Chronic low back pain - Primary Lumbago Hyperlipidemia LDL goal < 130 ([facility]) Other and unspecified hyperlipidemia Hypertension ([facility]) Unspecified essential hypertension Decreased libido documented in this encounter Care Teams Lpn Per Diem Relationship Specialty Start Date End Date Yaneth Dodd MD PCP - General 08/01/09 04/28/17 [address] [place] [address] documented as of this encounter
--- OUTSIDE RECORDS SUMMARY | 2022-02-09 09:10 | XMS_ITS | Encounter Summary ---
:1965 Author Organization [facility] Address [address] [place] [address] Care Team Providers Name Role Phone Yaneth Dodd MD Primary Care Provider Encounter Details Date Type Department Care Team Description 05/12/2012 Orders Only [facility] Screening [address] [place], [place] [address] Social History Tobacco Use [...] Screening Resu lts for this MANAGEMENT, URINE PLATE GAUGER procedure are in the results section. documented in this encounter Results DRUG SCREEN-PAIN MANAGEMENT, URINE (05/12/2012 10:37 AM PLATE GAUGER) Component Value Ref Test Analysis Performed At [facility] Method Time Signature Drug Screen, Urine [...] NERS pH Urine,Tox 6.7 [facility] Performed at [facility] Creatinine 43.7 mg/dL [facility] Urine,Tox Comment: Performed at [facility] Codeine TLD Unknown [facility] Morphine TLD Unknown [facility] Hydrocodone TLD Unknown [facility] Hydromorphone TLD Unknown [facility] Oxycodone TLD Unknown [facility] Oxymorphone TLD Unknown [facility] Specimen Anatomical Collection Method Collection Time Receive d Time (Source) Location / / Volume Laterality Urine specimen 05/12/2012 10:37 3 (specimen) AM PLATE GAUGER 10:38 AM PLATE GAUGER Yaneth Dodd MD LAB_1 Performing Organization Address City/State/ZIP Code Phon e Number [facility] [phone] [facility] [place] [address] [address] documented in this encounter Visit Diagnoses Diagnosis Screening Screening for unspecified condition documented in this encounter Care Teams Applications Project Manager Relationship Specialty Start Date End Date Yaneth Dodd MD PCP - General 08/01/09 04/28/17 [address] [place] [address] documented as of this encounter
--- OUTSIDE RECORDS SUMMARY | 2022-02-09 09:10 | XMS_ITS | Encounter Summary ---
:1965 Author Organization [facility] Address [address] [place] [address] Care Team Providers Name Role Phone Yaneth Dodd MD Primary Care Provider Reason for Visit Reason Comments Refill Encounter Details Date Type Department Care Team Description 08/22/2012 Refill [facility] Yaneth Dodd MD Refill [address] [facility] [address] [place], [place] [address] [place] [address] [phone] (Wo rk) Social History Tobacco Use Types Packs/Day Years Used Date Smoking Tobacco: Former Cigarettes 0.5 3 Cigars Smokeless Tobacco: Never Comments: Occasional cigar Alcohol Use Standard Drinks/Week Comments Yes 0 (1 standard drink = 0.6 oz pure alcoho l) Rare Sex Assigned at Date Recorded Not on file documented as of this encounter Nursing Notes Rosalio Luther - 08/23/2012 10:03 AM CDT RN is unable to refill. Date of last visit: 05/12/12 Last time med was ordered: Date: 06/20/12 Dispensed: 30 Number of refills: 0 Careplan: YES, copy of careplan: The patient suffers from chronic low back pain. Currently, he uses 30 tablets of hydrocodone 5-325 mg every month. He has been very compliant. documented in this encounter Plan of Treatment Not on filedocumented as of this encounter Visit Diagnoses Not on filedocumented in this encounter Care Teams Record Changer Tester Relationship Specialty Start Date End Date Yaneth Dodd MD PCP - General 08/01/09 04/28/17 [address] [place] [address] documented as of this encounter
--- OUTSIDE RECORDS SUMMARY | 2022-02-09 09:10 | XMS_ITS | Encounter Summary ---
:1965 Author Organization [facility] Address [address] [place] [address] Care Team Providers Name Role Phone Yaneth Dodd MD Primary Care Provider Reason for Visit Reason Comments Refill Encounter Details Date Type Department Care Team Description 06/18/2012 Refill [facility] Yaneth Dodd MD Refill [address] [facility] [address] [place], [place] [address] [place] [address] [phone] (Wo rk) Social History Tobacco Use Types Packs/Day Years Used Date Smoking Tobacco: Former Cigarettes 0.5 3 Cigars Comments: Occasional cigar Alcohol Use Standard Drinks/Week Comments Yes 0 (1 standard drink = 0.6 oz pure alcoho l) Rare Sex Assigned at Date Recorded Not on file documented as of this encounter Nursing Notes Maldonado Milton RN - 06/18/2012 4:52 PM CDT RN is unable to refill. Date of last visit: 05-12-12 Last time med was ordered: Date: 05-03-12 Dispensed: 30 Number of refills: 0 Narcotic Careplan: YES, copy of careplan: The patient suffers from chronic low back pain. Currently, he uses 30 tablets of hydrocodone 5-325 mg every month. He has been very compliant. Maldonado Milton RN 06/18/2012, 4:57 PM documented in this encounter Plan of Treatment Not on filedocumented as of this encounter Visit Diagnoses Not on filedocumented in this encounter Care Teams Business Planning Analyst Relationship Specialty Start Date End Date Yaneth Dodd MD PCP - General 08/01/09 04/28/17 [address] [place] [address] documented as of this encounter
--- OUTSIDE RECORDS SUMMARY | 2022-02-09 09:10 | XMS_ITS | Encounter Summary ---
:1965 Author Organization [facility] CorporationM[facility] CenterMobile [facility] Address [address] [place] [address] Care Team Providers Name Role Phone Yaneth Dodd MD Primary Care Provider Reason for Visit Reason Onset Date Comments Refill 09/09/2012 Encounter Details Date Type Department Care Team Description 09/09/2012 [facility]ill [facility] Chavo Rios MD Refill [address] [facility] [place] [address] [address] [facility] [address] [place], [place] [address] [place], [place] [address] (Wo rk) Social History Tobacco Use Types [...] on filedocumented in this encounter Care Teams Relocation Director Relationship Specialty Start Date End Date Yaneth Dodd MD PCP - General 08/01/09 04/28/17 [address] [place] [address] documented as of this encounter
--- OUTSIDE RECORDS SUMMARY | 2022-02-09 09:11 | XMS_ITS | Encounter Summary ---
:1965 Author Organization [facility] Address [address] [place] [address] Care Team Providers Name Role Phone Yaneth Dodd MD Primary Care Provider Reason for Visit Reason Comments Refill Encounter Details Date Type Department Care Team Description 03/13/2011 Refill [facility] Yaneth Dodd MD Refill [address] [facility] [address] [place], [place] [address] [place] [address] [phone] (Wo rk) Social History Tobacco Use Types [...] need to come and talk to me. K BRACER documented in this encounter Plan of Treatment Not on filedocumented as of this encounter Visit Diagnoses Not on filedocumented in this encounter Care Teams Painter Helper Spray Relationship Specialty Start Date End Date Yaneth Dodd MD PCP - General 08/01/09 04/28/17 [address] [place] [address] documented as of this encounter
--- OUTSIDE RECORDS SUMMARY | 2022-02-09 09:11 | XMS_ITS | Encounter Summary ---
:1965 Author Organization [facility] Address [address] [place] [address] Care Team Providers Name Role Phone Yaneth Dodd MD Primary Care Provider Reason for Visit Reason Comments Refill Encounter Details Date Type Department Care Team Description 01/09/2011 Refill [facility] Tamar Braswell MD Refill Medicine [address] [place] [address] [place] [address] [place] [address] [phone] Social History Tobacco Use Types Packs/Day Years Used Date Smoking Tobacco: Former Cigarettes 0.5 3 Cigars Comments: Occasional cigar Alcohol Use Standard Drinks/Week Comments Yes 0 (1 standard drink = 0.6 oz pure alcoho l) Rare Sex Assigned at Date Recorded Not on file documented as of this encounter Nursing Notes Claudia Guzman RN - 01/10/2011 10:19 AM CDT RN is unable to refill. VICODIN 5-500 MG tablet 15 Tab 0 12/11/2010 Date of last visit: 08/26/10 Last time med was ordered: Date: 12/11/10 Dispensed: 15 Number of refills: 0 Narcotic [...] need to come and talk to me. Claudia Guzman RN 01/10/2011, 10:19 AM documented in this encounter Plan of Treatment Not on filedocumented as of this encounter Visit Diagnoses Not on filedocumented in this encounter Care Teams Toby Maker Relationship Specialty Start Date End Date Yaneth Dodd MD PCP - General 08/01/09 04/28/17 [address] [place] [address] documented as of this encounter
--- OUTSIDE RECORDS SUMMARY | 2022-02-09 09:11 | XMS_ITS | Encounter Summary ---
:1965 Author Organization [facility] Address [address] [place] [address] Care Team Providers Name Role Phone Yaneth Dodd MD Primary Care Provider Reason for Visit Reason Comments Refill Encounter Details Date Type Department Care Team Description 12/11/2010 Refill [facility] Yaneth Dodd MD Refill [address] [facility] [address] [place], [place] [address] [place] [address] [phone] (Wo rk) Social History Tobacco Use Types [...] on filedocumented in this encounter Care Teams Line Pilot Relationship Specialty Start Date End Date Yaneth Dodd MD PCP - General 08/01/09 04/28/17 [address] [place] [address] documented as of this encounter
--- OUTSIDE RECORDS SUMMARY | 2022-02-09 09:11 | XMS_ITS | Encounter Summary ---
:1965 Author Organization [facility] Address [address] [place] [address] Care Team Providers Name Role Phone Yaneth Dodd MD Primary Care Provider Reason for Visit Reason Comments Refill Encounter Details Date Type Department Care Team Description 05/12/2011 Refill [facility] Yaneth Dodd MD Refill [address] [facility] [address] [place], [place] [address] [place], [place] [phone] (Wo rk) Social History Tobacco Use Types [...] order. Omaira Chen RN 05/15/2011 10:16 AM ESS LINE OPERATOR documented in this encounter Plan of Treatment Not on filedocumented as of this encounter Visit Diagnoses Not on filedocumented in this encounter Care Teams Technical Account Manager Relationship Specialty Start Date End Date Yaneth Dodd MD PCP - General 08/01/09 04/28/17 [address] [place], [place] [address] documented as of this encounter
--- OUTSIDE RECORDS SUMMARY | 2022-02-09 09:11 | XMS_ITS | Encounter Summary ---
:1965 Author Organization [facility] Address [address] [place] [address] Care Team Providers Name Role Phone Yaneth Dodd MD Primary Care Provider Reason for Visit Reason Onset Date Comments MEDICATION, NOS 09/01/2010 CHANGE SIMVASTATIN T O HALF 40=20 MG Encounter Details Date Type Department Care Team Description 09/01/2010 Telephone [facility] Yaneth Dodd M EDICATION, NOS (CHANGE Practice SIMVASTATIN TO HALF [address] [employer] [address] 40=20 MG) [place], [place] [address] [place], [place] [phone] [address] (Wo rk) Social History Tobacco Use Types Packs/Day Years Used Date Smoking Tobacco: Former Cigarettes 0.5 3 Cigars Comments: Occasional cigar Alcohol Use Standard Drinks/Week Comments Yes 0 (1 standard drink = 0.6 oz pure alcoho l) Rare Sex Assigned at Date Recorded Not on file documented as of this encounter Nursing Notes Ninfa Matos RN, BSN - 09/01/2010 1:56 PM CDT Noted on the med list comments Maria E Navarrete - 09/01/2010 1:33 PM CDT Pharmacy dispensed SIMVASTATIN 40 MG HALF TABLET (20 MG) per standing order as a replacement for thepatient's prescription for SIMVASTATIN 20 MG. Please update the patient's current medication list toreflect this change. documented in this encounter Plan of Treatment Not on filedocumented as of this encounter Visit Diagnoses Not on filedocumented in this encounter Care Teams Clinical Assoc Relationship Specialty Start Date End Date Yaneth Dodd MD PCP - General 08/01/09 04/28/17 [address] [place] [address] documented as of this encounter
--- OUTSIDE RECORDS SUMMARY | 2022-02-09 09:11 | XMS_ITS | Encounter Summary ---
:1965 Author Organization [facility] Address [address] [place] [address] Care Team Providers Name Role Phone Yaneth Dodd MD Primary Care Provider Reason for Visit Reason Comments Refill Encounter Details Date Type Department Care Team Description 07/09/2011 Refill [facility] Yaneth Dodd MD Refill [address] [facility] [address] [place], [place] [address] [place] [address] [phone] (Wo rk) Social History Tobacco Use Types Packs/Day Years Used Date Smoking Tobacco: Former Cigarettes 0.5 3 Cigars Comments: Occasional cigar Alcohol Use Standard Drinks/Week Comments Yes 0 (1 standard drink = 0.6 oz pure alcoho l) Rare Sex Assigned at Date Recorded Not on file documented as of this encounter Nursing Notes Jessica Baez RN - 07/09/2011 10:44 AM CDT RN is unable to refill. Date of last visit: 08/26/10 Last time med was ordered: Date: 06/11/11 Dispensed: 15 Number of refills: 0 Careplan: YES, copy of careplan: Yaneth Dodd 02/05/2010 11:38 AM Signed Nicanor [...] on filedocumented in this encounter Care Teams Bottle Machine Operator Relationship Specialty Start Date End Date Yaneth Dodd MD PCP - General 08/01/09 04/28/17 [address] [place] [address] documented as of this encounter
--- OUTSIDE RECORDS SUMMARY | 2022-02-09 09:11 | XMS_ITS | Encounter Summary ---
:1965 Author Organization [employer] Address [address] [place] [address] Care Team Providers Name Role Phone Yaneth Dodd MD Primary Care Provider Reason for Visit Reason Comments Refill Encounter Details Date Type Department Care Team Description 10/12/2010 Refill [facility] Tamar Braswell MD Refill Medicine [address] [place] [address] [place] [address] [place] [address] [phone] Social History Tobacco Use Types Packs/Day Years [...] on filedocumented in this encounter Care Teams Order Packer Or Packager Relationship Specialty Start Date End Date Yaneth Dodd MD PCP - General 08/01/09 04/28/17 [address] [place] [address] documented as of this encounter
--- OUTSIDE RECORDS SUMMARY | 2022-02-09 09:11 | XMS_ITS | Encounter Summary ---
:1965 Author Organization [facility] Address [address] [place] [address] Care Team Providers Name Role Phone Yaneth Dodd MD Primary Care Provider Reason for Visit Reason Comments Refill Encounter Details Date Type Department Care Team Description 02/10/2011 Refill [facility] Tamar Braswell MD Refill Medicine [address] [place] [address] [place] [address] [place] [address] [phone] Social History Tobacco Use Types Packs/Day Years Used Date Smoking Tobacco: Former Cigarettes 0.5 3 Cigars Comments: Occasional cigar Alcohol Use Standard Drinks/Week Comments Yes 0 (1 standard drink = 0.6 oz pure alcoho l) Rare Sex Assigned at Date Recorded Not on file documented as of this encounter Nursing Notes Jessica Baez RN - 02/11/2011 8:37 AM CST RN is unable to refill. Date of last visit: 08/26/10 Last time med was ordered: Date: 01/09/11 Dispensed: 15 Number of refills: 0 Careplan: [...] need to come and talk to me. ARD/STEWARDESS DECK documented in this encounter Plan of Treatment Not on filedocumented as of this encounter Visit Diagnoses Not on filedocumented in this encounter Care Teams Microsoft Bi Developer Relationship Specialty Start Date End Date Yaneth Dodd MD PCP - General 08/01/09 04/28/17 [address] [place] [address] documented as of this encounter
--- OUTSIDE RECORDS SUMMARY | 2022-02-09 09:11 | XMS_ITS | Encounter Summary ---
:1965 Author Organization [facility] Address [address] [place] [address] Care Team Providers Name Role Phone Yaneth Dodd MD Primary Care Provider Reason for Visit Reason Comments Refill Encounter Details Date Type Department Care Team Description 05/11/2011 Refill [facility] Emili Mejia MD Refill [address]39 [facility] [place] [address] [place], [place] [address] [place] [address] [phone] (Wo rk) Social History Tobacco Use Types [...] need to come and talk to me. ERECTOR documented in this encounter Plan of Treatment Not on filedocumented as of this encounter Visit Diagnoses Not on filedocumented in this encounter Care Teams Appliances Sample Maker Relationship Specialty Start Date End Date Yaneth Dodd MD PCP - General 08/01/09 04/28/17 [address] [place] [address] documented as of this encounter
--- OUTSIDE RECORDS SUMMARY | 2022-02-09 09:11 | XMS_ITS | Encounter Summary ---
:1965 Author Organization [facility] Address [address], [place] [address] Care Team Providers Name Role Phone Yaneth Dodd MD Primary Care Provider Reason for Visit Reason Onset Date Comments Medication Request 09/01/2010 Encounter Details Date Type Department Care Team Description 09/01/2010 Telephone [facility] Yaneth Dodd M edication Request Practice [address] [facility] [place] [facility] [address] [place], [place] [address] [place], [place] [phone] (Wo rk) Social History Tobacco Use Types [...] on filedocumented in this encounter Care Teams Server Systems Administrator Relationship Specialty Start Date End Date Yaneth Dodd MD PCP - General 08/01/09 04/28/17 [address] [place] [address] documented as of this encounter
--- OUTSIDE RECORDS SUMMARY | 2022-02-09 09:11 | XMS_ITS | Encounter Summary ---
:1965 Author Organization [facility] Address [address] [place] [address] Care Team Providers Name Role Phone Yaneth Dodd MD Primary Care Provider Reason for Visit Reason Comments Refill Encounter Details Date Type Department Care Team Description 04/10/2011 Refill [facility] Emili Mejia MD Refill [address]93 [facility] [address] [place], [place] [address] [place] [address] [phone] (Wo rk) Social History Tobacco Use Types Packs/Day Years Used Date Smoking Tobacco: Former Cigarettes 0.5 3 Cigars Comments: Occasional cigar Alcohol Use Standard Drinks/Week Comments Yes 0 (1 standard drink = 0.6 oz pure alcoho l) Rare Sex Assigned at Date Recorded Not on file documented as of this encounter Nursing Notes Rosalio Luther X - 04/10/2011 12:50 PM CST RN is unable to refill. Date of last visit: Last time med was ordered: Date: 03/13/11 Dispensed: 15 Number of refills: 0 Careplan: [...] need to come and talk to me. INAL INVESTIGATIVE AGENT documented in this encounter Plan of Treatment Not on filedocumented as of this encounter Visit Diagnoses Not on filedocumented in this encounter Care Teams Mail Inserter Relationship Specialty Start Date End Date Yaneth Dodd MD PCP - General 08/01/09 04/28/17 [address] [place] [address] documented as of this encounter
--- OUTSIDE RECORDS SUMMARY | 2022-02-09 09:11 | XMS_ITS | Encounter Summary ---
:1965 Author Organization [facility] Address [address] [place] [address] Care Team Providers Name Role Phone Yaneth Dodd MD Primary Care Provider Reason for Visit Reason Comments Refill Encounter Details Date Type Department Care Team Description 11/12/2010 Refill [facility] Camilo Bullock MD Refill [address] [facility] [address] [place], [place] [address] [place] [address] [phone] (Wo rk) Social History Tobacco Use Types [...] on filedocumented in this encounter Care Teams Software Requirements Engineer Relationship Specialty Start Date End Date Yaneth Dodd MD PCP - General 08/01/09 04/28/17 [address] [place] [address] documented as of this encounter
--- OUTSIDE RECORDS SUMMARY | 2022-02-09 09:11 | XMS_ITS | Encounter Summary ---
:1965 Author Organization [facility] Address [address] [place] [address] Care Team Providers Name Role Phone Yaneth Dodd MD Primary Care Provider Reason for Visit Reason Onset Date Comments Refill 03/21/2011 lisinopril Encounter Details Date Type Department Care Team Description 03/21/2011 Refill [facility] Chris Dodd MD Refill (lisinopril) Practice [address] [place] [address] [place] [address] [place] [address] 24 [phone] Social History Tobacco Use Types Packs/Day Years [...] order. Claudia Guzman RN 03/24/2011, 8:40 AM K BODY BUILDER APPRENTICE Maria E Navarrete - 03/21/2011 10:05 AM CST Last fill from a Pharmacy on 02/10/2011 for a quantity of 90. K BODY BUILDER APPRENTICE documented in this encounter Plan of Treatment Not on filedocumented as of this encounter Visit Diagnoses Not on filedocumented in this encounter Care Teams Information Technology Internship Relationship Specialty Start Date End Date Yaneth Dodd MD PCP - General 08/01/09 04/28/17 [address] [place] [address] documented as of this encounter
--- OUTSIDE RECORDS SUMMARY | 2022-02-09 09:11 | XMS_ITS | Encounter Summary ---
:1965 Author Organization [employer] Address [address] [place] [address] Care Team Providers Name Role Phone Yaneth Dodd MD Primary Care Provider Reason for Visit Reason Comments Refill Encounter Details Date Type Department Care Team Description 09/11/2010 Refill [facility] Yaneth Dodd MD Refill [address] [facility] [address] [place] [address] [place] [address] [phone] (Wo rk) Social History Tobacco Use Types [...] filedocumented in this encounter Care Teams Supervisor Broadloom Relationship Specialty Start Date End Date Yaneth Dodd MD PCP - General 08/01/09 04/28/17 [address] [place] [address] documented as of this encounter
--- OUTSIDE RECORDS SUMMARY | 2022-02-09 09:11 | XMS_ITS | Encounter Summary ---
:1965 Author Organization [employer] Address [address] [place] [address] Care Team Providers Name Role Phone Yaneth Strong MD Primary Care Provider Reason for Visit Reason Comments Refill Encounter Details Date Type Department Care Team Description 10/01/2010 Refill [facility] Yaneth Strong MD Refill [address] [facility] [address] [place], [place] [address] [place] [address] [phone] (Wo rk) Social History Tobacco Use Types [...] Refills diclofenac (AKA VOLTAREN) 50 MG enteric heg325 [id number]: TAKE 1 TABLET BY MOUTH TWO TIMES [...] on filedocumented in this encounter Care Teams Group Program Manager Relationship Specialty Start Date End Date Yaneth Strong MD PCP - General 08/01/09 04/28/17 [address] [place] [address] documented as of this encounter
--- OUTSIDE RECORDS SUMMARY | 2022-02-09 09:11 | XMS_ITS | Encounter Summary ---
:1965 Author Organization [facility] Address [address] [place] [address] Care Team Providers Name Role Phone Yaneth Dodd MD Primary Care Provider Reason for Visit Reason Comments Refill Encounter Details Date Type Department Care Team Description 05/11/2011 Refill [facility] Yaneth Dodd MD Refill [address] [facility] [address] [place], [place] [address] [place] [address] [phone] (Wo rk) Social History Tobacco Use Types [...] PM CST Letter was sent to patient. CENTER COORDINATOR Omaira Chen RN - 05/13/2011 12:22 PM CST Please inform patient due for fasting labs. RN filled 3 month supply to cover patient until seen. Per standing order. Omaira Chen RN 05/13/2011 12:21 PM CENTER COORDINATOR documented in this encounter Plan of Treatment Not on filedocumented as of this encounter Results ALT (SGPT) (05/06/2012 10:21 AM CALL CENTER COORDINATOR) P athologist Signature ALT (SGPT) 36 0 - 69 U/L [facility] Specimen Anatomical Collection Method Collection Time Receive d Time (Source) Location / / Volume Laterality 05/06/2012 10:21 05/06/2012 AM CALL CENTER COORDINATOR 10:25 AM CALL CENTER COORDINATOR Yaneth Dodd MD LAB_1 Performing Organization Address City/[facility] Phon e Number [facility] [phone] [facility] [address] [place] [address] (ABNORMAL) LIPID PANEL AND DIRECT LDL (05/06/2012 10:21 AM CALL CENTER COORDINATOR) [facility] gist Method Time Signature Cholesterol 184 0 - 199 [facility] mg/dl Triglyceride 96 0 - 149 [facility] mg/dl HDL 39 (L) >40 mg/dl [facility] LDL, Calc. 126 0 - 129 [facility] mg/dl Non HDL Chol, 145 mg/dl [facility] Calc Hours Fasting 12 hours [facility] Specimen Anatomical Collection Method Collection Time Receive d Time (Source) Location / / Volume Laterality 05/06/2012 10:21 05/06/2012 AM CALL CENTER COORDINATOR 10:25 AM CALL CENTER COORDINATOR Yaneth Dodd MD LAB_1 Performing Organization Address City/[facility] Phon e Number [facility] [phone] [address] documented in this encounter Visit Diagnoses Diagnosis Hyperlipidemia LDL goal < 130 (HRC) - Pr imary Other and unspecified hyperlipidemia Hypertension (HRC) Unspecified essential hypertension documented in this encounter Care Teams Assembling Fabricator Relationship Specialty Start Date End Date Yaneth Dodd MD PCP - General 08/01/09 04/28/17 [address] [place] [address] documented as of this encounter
--- OUTSIDE RECORDS SUMMARY | 2022-02-09 09:11 | XMS_ITS | Encounter Summary ---
:1965 Author Organization [facility] Address [address] [place] [address] Care Team Providers Name Role Phone Yaneth Dodd MD Primary Care Provider Reason for Visit Reason Comments Refill Encounter Details Date Type Department Care Team Description 06/11/2011 Refill [facility] Yaneth Dodd MD Refill [address] [facility] [place] [facility] [address] [place], [place] [address] [place] [address] [phone] (Wo rk) Social History Tobacco Use Types [...] on filedocumented in this encounter Care Teams Liquefaction Supervisor Relationship Specialty Start Date End Date Yaneth Dodd MD PCP - General 08/01/09 04/28/17 [address] [place] [address] documented as of this encounter
--- OUTSIDE RECORDS SUMMARY | 2022-02-09 09:11 | XMS_ITS | Encounter Summary ---
:1965 Author Organization [facility] Address [address] [place] [address] Care Team Providers Name Role Phone Yaneth Dodd MD Primary Care Provider Reason for Visit Reason Onset Date Comments LETTER NEEDED 01/16/2011 Encounter Details Date Type Department Care Team Description 01/16/2011 Telephone [facility] Chris Dodd MD LETTER NEEDED Practice [address] [facility] [address] [place] [address] [place] [address] [phone] Social History Tobacco Use Types Packs/Day Years [...] CST Letter will be mailed to patient. QUALITY TESTER Yaneth Dodd MD - 01/19/2011 7:52 AM CST Letter signed. Will give to Daryn Douglass. QUALITY TESTER Ninfa Matos RN, BSN - 01/16/2011 9:[address] Dodd will be able to sign the letter on Wednesday Letter pended QUALITY TESTER Daryn Galicia - 01/16/2011 9:43 AM CST Pt needs 2 letters Forms/Letter Request Questions: What form/letter are you requesting?: letter stating he does take HYDROcodone- acetaminophen (AKA VICODIN,LORTAB) 5-500 MG tablet for his back pain. 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 How would you like to receive this letter (If pt would like this sent anywhere other than to themselves, we need them to sign a Release of Information)?: Mailed to this address: [address] [place] [address] Is it okay to leave a detailed message on your voicemail: yes Pt aware pcp out of office today would like a call when ready QUALITY TESTER documented in this encounter Plan of Treatment Not on filedocumented as of this encounter Visit Diagnoses Not on filedocumented in this encounter Care Teams Dry Wall Applicator Relationship Specialty Start Date End Date Yaneth Dodd MD PCP - General 08/01/09 04/28/17 [address] [place] [address] documented as of this encounter
--- OUTSIDE RECORDS SUMMARY | 2022-02-09 09:12 | XMS_ITS | Encounter Summary ---
:1965 Author Organization [facility] Address [address] [place] [address] Care Team Providers Name Role Phone Yaneth Dodd MD Primary Care Provider Encounter Details Date Type Department Care Team Description 03/10/2010 Orders Only [facility] or Hyperlipidemia LDL goal < 13 0; [address] [facility] Screening for iron deficienc y anemia; [place], [place] [address] Hypertension; [phone] Encounter for l alicia-term (current) use of [...] Re sults for this DIRECT LDL(IF AM LAWNMOWER MECHANIC goal < 130 procedure are in NEEDED) the results section. CREATININE / GFR Routine 03/10/2010 10:01 Hypertension Results for this AM LAWNMOWER MECHANIC Encounter for procedure are in long-term (current) the resu lts use of other section. medications COMPLETE BLOOD Routine 03/10/2010 10:01 Screening for iron Res ults for this COUNT-NO DIFF AM LAWNMOWER MECHANIC deficiency anemia procedure are in the results section. ALT (SGPT) Routine 03/10/2010 10:01 Encounter for Results fo r this AM LAWNMOWER MECHANIC long-term (current) procedur e are in use of other the results medications section. Hyperlipidemia LDL goal < 130 POTASSIUM Routine 03/10/2010 10:01 Hypertension Results for this AM LAWNMOWER MECHANIC Encounter for procedure are in long-term (current) the resu lts use of other section. medications documented in this encounter Results ALT (SGPT) (03/10/2010 10:01 AM LAWNMOWER MECHANIC) athologist Signature ALT (SGPT) 24 0 - 69 U/L [facility] Specimen Anatomical Collection Method Collection Time Receive d Time (Source) Location / / Volume Laterality 03/10/2010 10:03/10/2010 AM LAWNMOWER MECHANIC 10:09 AM LAWNMOWER MECHANIC Yaneth Dodd MD LAB_1 Performing Organization Address [facility] Phon e Number [facility] [email or web address] [phone] [phone] POTASSIUM (03/10/2010 10:01 AM LAWNMOWER MECHANIC) athologist Signature Potassium 4.4 3.5 - 5.1 [facility] mmol/L Specimen Anatomical Collection Method Collection Time Receive d Time (Source) Location / / Volume Laterality 03/10/2010 10:03/10/2010 AM LAWNMOWER MECHANIC 10:09 AM LAWNMOWER MECHANIC Yaneth Dodd MD LAB_1 Performing Organization Address [facility] Phon e Number [facility] [phone] [phone] CREATININE / GFR (03/10/2010 10:01 AM LAWNMOWER MECHANIC) Analysis Performed At Patho logist Time Signature Creatinine 1.03 0.66 - [facility] 1.25 mg/dl GFR, Estimated >60.0 >60 [facility] ml/min/1.7 3m2 GFR, Est., If >60.0 >60 [facility] Black ml/min/1.7 3m2 Specimen Anatomical Collection Method Collection Time Receive d Time (Source) Location / / Volume Laterality 03/10/2010 10:01 03/10/2010 AM LAWNMOWER MECHANIC 10:09 AM LAWNMOWER MECHANIC Yaneth Dodd MD LAB_1 Performing Organization Address City/[facility]/ZIP Code Phon e Number [facility] [phone] [phone] (ABNORMAL) HEMOGRAM/PLTS (03/10/2010 10:01 AM LAWNMOWER MECHANIC) P athologist Signature WBC 6.9 4.0 - 11.0 [facility] k/ul RBC 5.06 4.5 - 5.9 [facility] M/ul Hemoglobin 14.8 13.5 - [facility] 17.5 g/dl HCT 46.2 41.0 - [facility] 53.0 % MCV 91.4 80 - 100 [facility] fl MCH 29.2 26 - 34 pg [facility] MCHC 31.9 (L) 32 - 36 [facility] g/dl RDW 14.1 11.5 - [facility] 14.5 % Platelets 286 150 - 450 [facility] k/ul Specimen Anatomical Collection Method Collection Time Receive d Time (Source) Location / / Volume Laterality 03/10/2010 10:03/10/2010 AM LAWNMOWER MECHANIC 10:09 AM LAWNMOWER MECHANIC Yaneth Dodd MD LAB_1 Performing Organization Address City/[facility]/ZIP Code Phon e Number [facility] [phone] [phone] (ABNORMAL) LIPID PANEL AND DIRECT LDL(IF NEEDED) (03/10/2010 10:01 AM LAWNMOWER MECHANIC) [facility] Method Time Signature Cholesterol 275 (H) 0 - 199 [facility] mg/dl Triglyceride 173 (H) 0 - 149 [facility] mg/dl HDL 14 (L) >40 mg/dl [facility] LDL, Calc. 226 (H) 0 - 129 [facility] mg/dl Hours Fasting 12 hours [facility] Specimen Anatomical Collection Method Collection Time Receive d Time (Source) Location / / Volume Laterality 03/10/2010 10:01 03/10/2010 AM LAWNMOWER MECHANIC 10:09 AM LAWNMOWER MECHANIC Yaneth Dodd MD LAB_1 Performing Organization Address City/[facility]/ZIP Code Phon e Number [facility] [phone] [facility] [address] [address] documented in this encounter Visit Diagnoses Diagnosis Hyperlipidemia LDL goal < 130 (HRC) Other and unspecified hyperlipidemia Screening for iron deficiency anemia Hypertension (HRC) Unspecified essential hypertension Encounter for long-term (current) use of other medications documented in this encounter Care Teams Automotive Salesperson Relationship Specialty Start Date End Date Yaneth Dodd MD PCP - General 08/01/09 04/28/17 [address] [place] [address] documented as of this encounter
--- OUTSIDE RECORDS SUMMARY | 2022-02-09 09:12 | XMS_ITS | Encounter Summary ---
:1965 Author Organization [facility] Address [address] [place] [address] Care Team Providers Name Role Phone Yaneth Dodd MD Primary Care Provider Reason for Visit Reason Comments BP CHECK, Encounter Details Date Type Department Care Team Description 08/26/2010 Office Visit [facility] Yaneth Dodd rtension (Primary Practice MD Sebastien Dx) [address] [place] [address] [phone] Social History Tobacco Use Types Packs/Day Years Used Date Smoking Tobacco: Former Cigarettes 0.5 3 Cigars Comments: Occasional cigar Alcohol Use Standard Drinks/Week Comments Yes 0 (1 standard drink = 0.6 oz pure alcoho l) Rare Sex Assigned at Date Recorded Not on file documented as of this encounter Last Filed Vital Signs Vital Sign Reading Time Taken Comments Blood Pressure 165/83 08/26/2010 3:30 PM CDT Pulse 85 08/26/2010 3:30 PM CDT Temperature - - Respiratory Rate - - Oxygen Saturation - - Inhaled Oxygen Concentration - - Weight 95.3 kg (210 lb) 08/26/2010 3:28 PM CDT Height 185.4 cm (6' 1) 08/26/2010 3:28 PM CDT Body Mass Index 27.71 08/26/2010 3:28 PM CDT documented in this encounter Progress Notes Yaneth Dodd MD - 08/26/2010 3:48 PM CDT Subjective: 44-year-old male comes in to discuss his blood pressure. 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 He was told that his blood pressure was too high and that he needed to talk to his doctor. Currently on 10 mg of lisinopril daily. Tolerates that well. He is also on fenofibrate and Lipitor for his cholesterol. Tries to watch his salt although it is difficult. He is quite active. Objective:BP 165/83 Pulse 85 Ht 6' 1 (1.854 m) Wt 210 lb (95.255 kg) BMI 27.71 kg/m2 He appears well. Blood pressure initially was 159/98. Assessment: Hypertension, inadequately controlled. Plan: Am going to increase his lisinopril to 20 mg daily. 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 Everything is fine, he will call me in for the next prescription we will send in a 20 mg tablet. If not,he needs to return for medication adjustment. documented in this encounter Plan of Treatment Not on filedocumented as of this encounter Visit Diagnoses Diagnosis Hypertension (HRC) - Primary Unspecified essential hypertension documented in this encounter Care Teams Acetylene Torch Solderer Relationship Specialty Start Date End Date Yaneth Dodd MD PCP - General 08/01/09 04/28/17 [address] [place] [address] documented as of this encounter
--- OUTSIDE RECORDS SUMMARY | 2022-02-09 09:12 | XMS_ITS | Encounter Summary ---
:1965 Author Organization [employer] Address [address] [place] [address] Care Team Providers Name Role Phone Yaneth Strong MD Primary Care Provider Reason for Visit Reason Comments Refill Encounter Details Date Type Department Care Team Description 07/11/2010 Refill [facility] Marilyn Toro MD Refill [address] [address] [place] [address] [phone] (Wo rk) Social History Tobacco Use Types Packs/Day Years Used Date Smoking Tobacco: Former Cigarettes 0.5 3 Cigars Comments: Occasional cigar Alcohol Use Standard Drinks/Week Comments Yes 0 (1 standard drink = 0.6 oz pure alcoho l) Rare Sex Assigned at Date Recorded Not on file documented as of this encounter Nursing Notes Yaneth Strong MD - 07/14/2010 7:49 AM CDTApproved Prescriptions: Disp Refills HYDROcodone-acetaminophen (AKA VICODIN,LORT15 Tab 0Sig: TAKE ONE TABLET BY MOUTH EVERY 6 HOURS NEEDEDAuthorizing Provider: YANETH STRONG Halle Candelaria - 07/11/2010 11:59 AM CDT Pending Prescriptions: Disp Refills HYDROcodone-acetaminophen (AKA VICODIN,LOR15 Tab 0 Sig: TAKE ONE TABLET BY MOUTH EVERY 6 HOURS NEEDED Halle Candelaria - 07/11/2010 11:59 AM CDT RN is unable to refill. Date of last visit: 06/18/10 Last time med was ordered: Date: 06/13/10 Dispensed: 15 Number of refills: 0 Careplan: YES, copy of careplan: Yaneth Strong [...] on filedocumented in this encounter Care Teams Box Toe Cementer Relationship Specialty Start Date End Date Yaneth Strong MD PCP - General 08/01/09 04/28/17 [address] [place] [address] documented as of this encounter
--- OUTSIDE RECORDS SUMMARY | 2022-02-09 09:12 | XMS_ITS | Encounter Summary ---
:1965 Author Organization [employer] Address [address] [place] [address] Care Team Providers Name Role Phone Yaneth [...] Department Care Team Description 02/06/2010 Office Visit [facility], Dane Zaragoza, Examination of eyes and visi on (Primary Dx); [address] OD Myopia; [place], [place] [address] Unspecified astigmatism; [phone] Presbyopia Social History Tobacco Use Types Packs/Day [...] 11:21 AM CST Thank you for choosing [facility]. Many tests [...] the clinic in the future? Appointment Center: [phone] Eye Dept: [phone] Online Services: [email or web address] For after hours care, call the CareLine at [phone] or . We look forward to taking [...] Thanks so much for visiting us today! NESS APPLICATIONS DEVELOPER documented in this encounter Progress Notes Dane [...] 1 year(s) for REE. Dane Ventura, MICA NESS APPLICATIONS DEVELOPER documented in this encounter Plan of Treatment Not on filedocumented as of this encounter Visit Diagnoses Diagnosis Examination of eyes and vision - Primary Myopia Astigmatism, unspecified Presbyopia documented in this encounter Care Teams Bundle Clerk Relationship Specialty Start Date End Date Yaneth Dodd MD PCP - General 08/01/09 04/28/17 [address] [place] [address] documented as of this encounter
--- OUTSIDE RECORDS SUMMARY | 2022-02-09 09:12 | XMS_ITS | Encounter Summary ---
:1965 Author Organization [facility] Address [address] [place] [address] Care Team Providers Name Role Phone Yaneth Strong MD Primary Care Provider Reason for Visit Reason Onset Date Comments Refill 08/05/2010 Encounter Details Date Type Department Care Team Description 08/05/2010 Refill [facility] Yaneth Strong MD Refill [address] [facility] [address] [place], [place] [address] [place] [address] [phone] (Wo rk) Social History Tobacco Use Types [...] hyperlipidemia documented in this encounter Care Teams Fiberglasser Relationship Specialty Start Date End Date Yaneth Strong MD PCP - General 08/01/09 04/28/17 [address] [place] [address] documented as of this encounter
--- OUTSIDE RECORDS SUMMARY | 2022-02-09 09:12 | XMS_ITS | Encounter Summary ---
:1965 Author Organization [employer] Address [address] [place] [address] Care Team Providers Name Role Phone Yaneth Dodd MD Primary Care Provider Reason for Visit Reason Comments CONSULT Encounter Details Date Type Department Care Team Description 05/06/2010 [facility] Ble eding internal [facility] hemorrhoids (Primary [address] Dx) [place] [address] Social History Tobacco Use Types [...] Comments Blood Pressure 123/83 05/06/2010 10:09 AM RESIDENTIAL INSURANCE INSPECTOR Pulse 79 05/06/2010 10:09 AM RESIDENTIAL INSURANCE INSPECTOR Temperature 36.7 ??C (98.1 ??F) 05/06/2010 10:09 AM RESIDENTIAL INSURANCE INSPECTOR Respiratory Rate - - Oxygen Saturation - - Inhaled Oxygen Concentration - - Weight 101.5 kg (223 lb 12.8 oz) 05/06/2010 10:09 AM RESIDENTIAL INSURANCE INSPECTOR Height 185.4 cm (6' 1) 05/06/2010 10:09 AM RESIDENTIAL INSURANCE INSPECTOR Body Mass Index 29.53 05/06/2010 10:09 AM RESIDENTIAL INSURANCE INSPECTOR documented in this encounter Patient Instructions Patient [...] questions or problems, don't hesitate to call. DENTIAL INSURANCE INSPECTOR documented in this encounter Progress Notes Scarlet Callaway - 05/06/2010 11:14 AM CST CC: Rectal bleeding HPI: This is a 44 yr male whom I was asked to see in consultation at the request of Julio Dodd MD concerning hemorrhoids which have been [...] disorders, anesthetic reaction, cancer. 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
--- OUTSIDE RECORDS SUMMARY | 2022-02-09 09:12 | XMS_ITS | Encounter Summary ---
:1965 [address] Address [address], [place] [address] Care Team Providers Name Role Phone Yaneth Dodd MD Primary Care Provider Encounter Details Date Type Department Care Team Description 02/05/2010 [facility] [place] [address] [address] [place] [address] [phone] (Wo rk) Social History Tobacco Use Types Packs/Day Years Used Date Smoking Tobacco: Former Cigarettes 0.5 3 Cigars Comments: Occasional cigar Alcohol Use Standard Drinks/Week Comments Yes 0 (1 standard drink = 0.6 oz pure alcoho l) Rare Sex Assigned at Date Recorded Not on file documented as of this encounter Progress Notes Yaneth Dodd - 02/05/2010 11:38 AM CST Nicanor is a 44-year-old male who suffers from chronic back pain. He has had four surgeries of his lower back including three laminectomies and one fusion. He gets intermittent flares of his back symptoms. We have agreed on 15 tablets of Vicodin monthly. If he should require more than that, he will need to come and talk to me. ON SEED CULLER documented in this encounter Plan of Treatment Not on filedocumented as of this encounter Visit Diagnoses Not on filedocumented in this encounter Care Teams Music Engineer Relationship Specialty Start Date End Date Yaneth Dodd MD PCP - General 08/01/09 04/28/17 [address] [place] [address] documented as of this encounter
--- OUTSIDE RECORDS SUMMARY | 2022-02-09 09:12 | XMS_ITS | Encounter Summary ---
:1965 Author Organization [employer] Address [address] [place] [address] Care Team Providers Name Role Phone Yaneth Dodd MD Primary Care Provider Reason for Visit Reason Comments Refill Encounter Details Date Type Department Care Team Description 05/09/2010 Refill [facility] Yaneth Dodd MD Refill [address] [facility] [address] [place] [address] [place] [address] [phone] (Wo rk) Social History Tobacco Use Types Packs/Day Years Used Date Smoking Tobacco: Former Cigarettes 0.5 3 Cigars Comments: Occasional cigar Alcohol Use Standard Drinks/Week Comments Yes 0 (1 standard drink = 0.6 oz pure alcoho l) Rare Sex Assigned at Date Recorded Not on file documented as of this encounter Nursing Notes Yaneth Dodd MD - 05/12/2010 9:47 AM SENIOR SQL DEVELOPER Approved Prescriptions: Disp Refills HYDROcodone-acetaminophen (AKA VICODIN,LORT15 Tab 0 Sig: TAKE 1 TABLET EVERY 6 HOURS NEEDED FOR PAIN Authorizing Provider: YANETH DODD OR SQL DEVELOPER Matos, Ninfa J, RN, BSN - 05/12/2010 9:24 AM SENIOR SQL DEVELOPER Pending Prescriptions: Disp Refills HYDROcodone-acetaminophen (AKA VICODIN,ROYCE 0 Sig: TAKE 1 TABLET EVERY 6 HOURS NEEDED FOR PAIN OR SQL DEVELOPER Ninfa Matos RN, BSN - 05/12/2010 9:24 [...] need to come and talk to me. OR SQL DEVELOPER documented in this encounter Plan of Treatment Not on filedocumented as of this encounter Visit Diagnoses Not on filedocumented in this encounter Care Teams Rod Cup Filler Relationship Specialty Start Date End Date Yaneth Dodd MD PCP - General 08/01/09 04/28/17 [address] [place] [address] documented as of this encounter
--- OUTSIDE RECORDS SUMMARY | 2022-02-09 09:12 | XMS_ITS | Encounter Summary ---
:1965 Author Organization [facility] Address [address] [place] [address] Care Team Providers Name Role Phone Yaneth Dodd MD Primary Care Provider Reason for Visit Reason Onset Date Comments Refill 03/11/2010 ACYCLOVIR 400 MG Encounter Details Date Type Department Care Team Description 03/11/2010 Refill [facility] Yaneth Dodd R efill (ACYCLOVIR 400 Practice MD MG) [address] [facility] [address] [place], [place] [address] [place], [place] [phone] [address] (Wo rk) Social History Tobacco Use Types [...] filedocumented in this encounter Care Teams Paper Hanger Relationship Specialty Start Date End Date aYneth Dodd MD PCP - General 08/01/09 04/28/17 [address] [place], [place] [address] documented as of this encounter
--- OUTSIDE RECORDS SUMMARY | 2022-02-09 09:12 | XMS_ITS | Encounter Summary ---
:1965 Author Organization [facility] Address [address] [place] [address] Care Team Providers Name Role Phone Yaneth oDdd MD Primary Care Provider Reason for Visit Reason Comments Refill Encounter Details Date Type Department Care Team Description 08/10/2010 Refill [facility] Yaneth Dodd MD Refill [address] [facility] [address] [place], [place] [address] [place] [address] [phone] (Wo rk) Social History Tobacco Use Types [...] on filedocumented in this encounter Care Teams Account General Manager Relationship Specialty Start Date End Date Yaneth Dodd MD PCP - General 08/01/09 04/28/17 [address] [place] [address] documented as of this encounter
--- OUTSIDE RECORDS SUMMARY | 2022-02-09 09:12 | XMS_ITS | Encounter Summary ---
:1965 Author Organization [employer] Address [address] [place] [address] Care Team Providers Name Role Phone Yaneth Strong MD Primary Care Provider Reason for Visit Reason Onset Date Comments Refill 04/15/2010 Encounter Details Date Type Department Care Team Description 04/15/2010 Refill [facility] Martin Braswell MD Refill [address] [place], [place] [address] [place] [address] [phone] (Wo rk) Social History Tobacco Use Types [...] Pain for 10 days.Authorizing Provider: YANETH STRONG RENCE TEST CLERK Ninfa Matos RN, BSN - 04/15/2010 8:40 AM REFERENCE TEST CLERK Pending Prescriptions: Disp Refills HYDROcodone-acetaminophen (AKA VICODIN,LORT15 Tab 0 Sig: Take 1 Tab by mouth every 6 hours as needed for Pain for 10 days. RENCE TEST CLERK Ninfa Matos RN, BSN - 04/15/2010 8:40 [...] need to come and talk to me. RENCE TEST CLERK Katt Anderson - 04/15/2010 7:30 AM CST Last fill on 03/14/10 for a quantity of 15 RENCE TEST CLERK documented in this encounter Plan of Treatment Not on filedocumented as of this encounter Visit Diagnoses Not on filedocumented in this encounter Care Teams Manager Treasury Relationship Specialty Start Date End Date Yaneth Strong MD PCP - General 08/01/09 04/28/17 [address] [place] [address] documented as of this encounter
--- OUTSIDE RECORDS SUMMARY | 2022-02-09 09:12 | XMS_ITS | Encounter Summary ---
:1965 Author Organization [facility] Address [address] [place] [address] Care Team Providers Name Role Phone Yaneth Strong MD Primary Care Provider Reason for Visit Reason Onset Date Comments Refill 03/10/2010 OMEPRAZOLE 20MG Encounter Details Date Type Department Care Team Description 03/10/2010 Refill [facility] Yaneth Strong R efmorelia (OMEPRAZOLE 20MG) Practice [address] [address] [place], [place] [phone] [address] (Wo rk) Social History Tobacco Use Types [...] by mouth daily. Authorizing Provider: YANETH STRONG E TANK OPERATOR Ninfa Matos RN, BSN - 03/10/2010 3:49 PM SCALE TANK OPERATOR Pending Prescriptions: Disp Refills omeprazole (AKA PRILOSEC) 20 MG capsule prn Sig: Take by mouth daily. Take 30 minutes before meal. lisinopril (AKA ZESTRIL) 10 MG tablet prn Sig: Take 1 Tab by mouth daily. E TANK OPERATOR Ninfa Matos, RN, BSN - 03/10/2010 3:49 PM CST Labs still in process. Has f/u appt with Dr Strong on Wed. Will forward for refill then E TANK OPERATOR Maryan Wood - 03/10/2010 12:01 PM CST Last fill from a [facility] on [id number] for a quantity of 90. (OMEPRAZOLE) Last fill from a [facility] on [id number] for a quantity of 30. (LISINOPRIL) E TANK OPERATOR documented in this encounter Plan of Treatment Not on filedocumented as of this encounter Visit Diagnoses Diagnosis GERD (gastroesophageal reflux disease) Esophageal reflux Hypertension (HRC) Unspecified essential hypertension documented in this encounter Care Teams Single Wire Saw Operator Relationship Specialty Start Date End Date Yaneth Strong MD PCP - General 08/01/09 04/28/17 [address] [place] [address] documented as of this encounter
--- OUTSIDE RECORDS SUMMARY | 2022-02-09 09:12 | XMS_ITS | Encounter Summary ---
:1965 Author Organization [employer] Address [address] [place] [address] Care Team Providers Name Role Phone Yaneth Dodd MD Primary Care Provider Reason for Visit Reason Onset Date Comments Refill 03/14/2010 vicodin Encounter Details Date Type Department Care Team Description 03/14/2010 Refill [facility] Chris Dodd MD Refill (vicodin) [address] [address] [place] [address] [phone] Social History Tobacco Use Types Packs/Day Years Used Date Smoking Tobacco: Former Cigarettes 0.5 3 Cigars Comments: Occasional cigar Alcohol Use Standard Drinks/Week Comments Yes 0 (1 standard drink = 0.6 oz pure alcoho l) Rare Sex Assigned at Date Recorded Not on file documented as of this encounter Nursing Notes Rosey Braswell MD - 03/14/2010 10:53 AM FURNACE CHARGER Approved Prescriptions: Disp Refills HYDROcodone-acetaminophen (AKA VICODIN,LORT15 Tab 0 Sig: Take 1 Tab by mouth every 6 hours as needed for Pain for 10 days. Authorizing Provider: ROSEY BRASWELL ACE CHARGER Ninfa Matos RN, BSN - 03/14/2010 10:09 AM FURNACE CHARGER Pending Prescriptions: Disp Refills HYDROcodone-acetaminophen (AKA VICODIN,LORT15 Tab 0 Sig: Take 1 Tab by mouth every 6 hours as needed for Pain for 10 days. ACE CHARGER Ninfa Matos, RN, BSN - 03/14/2010 10:09 [...] need to come and talk to me. ACE CHARGER Huong Huerta - 03/14/2010 10:07 AM CST Last fill from a Pharmacy on [id number] for a quantity of 15. ACE CHARGER documented in this encounter Plan of Treatment Not on filedocumented as of this encounter Visit Diagnoses Not on filedocumented in this encounter Care Teams Cap And Stud Machine Operator Relationship Specialty Start Date End Date Yaneth Dodd MD PCP - General 08/01/09 04/28/17 [address] [place] [address] documented as of this encounter
--- OUTSIDE RECORDS SUMMARY | 2022-02-09 09:12 | XMS_ITS | Encounter Summary ---
:1965 Author Organization [employer] Address [address] [place] [address] Care Team Providers Name Role Phone Yaneth Strong MD Primary Care Provider Reason for Visit Reason Comments Refill Encounter Details Date Type Department Care Team Description 07/02/2010 Refill [facility] Yaneth Strong MD Refill [address] [facility] [address] [place], [place] [address] [place] [address] [phone] (Wo rk) Social History Tobacco Use Types [...] Refills diclofenac (AKA VOLTAREN) 50 MG enteric [id number]: TAKE 1 TABLET BY MOUTH TWO TIMES [...] on filedocumented in this encounter Care Teams Rag Cutting Machine Feeder Relationship Specialty Start Date End Date Yaneth Strong MD PCP - General 08/01/09 04/28/17 [address] [place] [address] documented as of this encounter
--- OUTSIDE RECORDS SUMMARY | 2022-02-09 09:12 | XMS_ITS | Encounter Summary ---
:1965 Author Organization [facility] Address [address] [place] [address] Care Team Providers Name Role Phone Yaneth Dodd MD Primary Care Provider Reason for Visit Reason Comments FOLLOW-UP,LAB Encounter Details Date Type Department Care Team Description 06/18/2010 Office Visit [facility] Yaneth Dodd [place] rlipidemia LDL goal Criselda Crowe MD < 130 (Primary Dx) [address] [facility] [address] [place] [address] [phone] Social History Tobacco Use Types Packs/Day Years [...] hyperlipidemia documented in this encounter Care Teams Landscape Artist Relationship Specialty Start Date End Date Yaneth Dodd MD PCP - General 08/01/09 04/28/17 [address] [place] [address] documented as of this encounter
--- OUTSIDE RECORDS SUMMARY | 2022-02-09 09:12 | XMS_ITS | Encounter Summary ---
:1965 Author Organization [employer] Address [address] [place] [address] Care Team Providers Name Role Phone Yaneth Dodd MD Primary Care Provider Reason for Visit Reason Comments IMMUNIZATIONS Encounter Details Date Type Department Care Team Description 05/01/2010 Office Visit [facility] DTP (Primary Department Dx) [address] [place], [place] [address] Social History Tobacco Use [...] report for administration documentation. Rosa Suarez LPN ICAL MENTAL HEALTH COUNSELOR documented in this encounter Plan of Treatment Not on filedocumented as of this encounter Visit Diagnoses Diagnosis Need for prophylactic vaccination with c ombined ysxeolyytj-lhbebra-bmftxudra (DTP) vaccine - Primary documented in this encounter Care Teams Biomass Facilitator Relationship Specialty Start Date End Date Yaneth Dodd MD PCP - General 08/01/09 04/28/17 [address] [place] [address] documented as of this encounter
--- OUTSIDE RECORDS SUMMARY | 2022-02-09 09:12 | XMS_ITS | Encounter Summary ---
:1965 Author Organization [facility] Address [address], [place] [address] Care Team Providers Name Role Phone Yaneth Dodd MD Primary Care Provider Reason for Referral Specialty Diagnoses / Procedures Referred By Contact [place] [address] [place], [place] [address] Referral ID Status Reason Start Date Expiration Date Visits Requ ested Visits Authorized Scheduling Instructions If an appointment with [facility] or Vascular Surgery department was advised and you have not been contacted to schedule that appointment within 3 business days, please call [phone] for assistance. 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 Encounter Details Date Type Department Care Team Description 04/29/2010 Office Visit [facility] Yaneth Dodd rrhoid (Primary Practice MD Sebastien Dx) [address] [facility] [address] [place] [address] [phone] Social History Tobacco Use Types Packs/Day Years [...] Comments Blood Pressure 126/76 04/29/2010 10:20 AM NEEDLEWORKER Pulse 92 04/29/2010 10:20 AM NEEDLEWORKER Temperature 36.6 ??C (97.9 ??F) 04/29/2010 10:20 AM NEEDLEWORKER Respiratory Rate 16 04/29/2010 10:20 AM NEEDLEWORKER Oxygen Saturation - - Inhaled Oxygen Concentration - - Weight - - Height - - Body Mass Index - - documented in this encounter Progress Notes Yaneth Dodd MD - 04/29/2010 11:42 AM CST Subjective: 44-year-old male comes in concerned about hemorrhoids. He has had hemorrhoids for probably 22 years. Has mainly just to let them with kzct-llj-kwgphba products. The last couple of years they have become progressively worse. He probably has two flares of month. He finds that they are bleeding more than they used to. 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 He is uncomfortable. Bleeding. Wonders if there is other products besides drwtnbe-wse-zuleufa products that would be more beneficial. He [...] will make that appointment on his own. LEWORKER documented in this encounter Plan of Treatment Scheduled Referrals Name Type Priority Associated Diagnoses Order S chedule SURGERY CONSULT-ADULTS Referral Routine Hemorrhoid Order ed: 04/29/2010 documented as of this encounter Visit Diagnoses Diagnosis Hemorrhoid - Primary Unspecified hemorrhoids without mention of complication documented in this encounter Care Teams School Manager Relationship Specialty Start Date End Date Yaneth Dodd MD PCP - General 08/01/09 04/28/17 [address] [place] [address] documented as of this encounter
--- OUTSIDE RECORDS SUMMARY | 2022-02-09 09:12 | XMS_ITS | Encounter Summary ---
:1965 Author Organization [employer] Address [address] [place] [address] Care Team Providers Name Role Phone Yaneth Strong MD Primary Care Provider Reason for Visit Reason Comments Refill Encounter Details Date Type Department Care Team Description 05/03/2010 Refill [facility] Yaneth Strong MD Refill [address] [facility] [address] [place] [address] [place] [address] [phone] (Wo rk) Social History Tobacco Use Types [...] DAYAuthorizing Provider: YANETH STRONG User: MASHA MATOS FRAME MAKER documented in this encounter Plan of Treatment Not on filedocumented as of this encounter Results ALT (SGPT) (06/11/2010 10:59 AM CDT) P athologist Signature ALT (SGPT) 42 0 - 69 U/L [facility] Specimen Anatomical Collection Method Collection Time Receive d Time (Source) Location / / Volume Laterality 06/11/2010 10:59 06/11/2010 AM CDT 11:02 AM CDT Yaneth Strong MD LAB_1 Performing Organization Address City/[facility] Phon e Number [facility] [employer] [phone] [facility] [address] [place] [address] (ABNORMAL) LIPID PANEL AND DIRECT LDL(IF NEEDED) (06/11/2010 10:59 AM CDT) [facility] gist Method Time Signature Cholesterol 148 0 - 199 [facility] mg/dl Triglyceride 168 (H) 0 - 149 [facility] mg/dl HDL 37 (L) >40 mg/dl [facility] LDL, Calc. 77 0 - 129 [facility] mg/dl Hours Fasting 13 hours [facility] Specimen Anatomical Collection Method Collection Time Receive d Time (Source) Location / / Volume Laterality 06/11/2010 10:59 06/11/2010 AM CDT 11:02 AM CDT Yaneth Strong MD LAB_1 Performing Organization Address City/[facility] Phon e Number [facility] [employer] [phone] [address] documented in this encounter Visit Diagnoses Diagnosis Hyperlipidemia LDL goal < 130 (HRC) - Pr imary Other and unspecified hyperlipidemia documented in this encounter Care Teams Forgeman Helper Relationship Specialty Start Date End Date Yaneth Strong MD PCP - General 08/01/09 04/28/17 [address] [place] [address] documented as of this encounter
--- OUTSIDE RECORDS SUMMARY | 2022-02-09 09:12 | XMS_ITS | Encounter Summary ---
:1965 Author Organization [facility] Address [address] [place] [address] Care Team Providers Name Role Phone Yaneth Dodd MD Primary Care Provider Reason for Visit Reason Onset Date Comments LAB TESTS, NOS 03/06/2010 Encounter Details Date Type Department Care Team Description 03/06/2010 Telephone [facility] Chris Dodd MD LAB TESTS, NOS [facility] [address] [facility] [address] [place] [address] [place] [address] 24 [phone] Social History Tobacco Use Types Packs/Day Years Used Date Smoking Tobacco: Former Cigarettes 0.5 3 Cigars Comments: Occasional cigar Alcohol Use Standard Drinks/Week Comments Yes 0 (1 standard drink = 0.6 oz pure alcoho l) Rare Sex Assigned at Date Recorded Not on file documented as of this encounter Nursing Notes Ninfa Matos, RN, BSN - 03/06/2010 12:42 PM CST Orders entered ESTATE LAWYER Boris Champagne - 03/06/2010 11:43 AM CST Patient on Lab Only Visit Schedule, no lab orders found in patient's chart. Please review and enter Future Lab Orders or notify the patient that lab work is not needed. Lab Only Visit scheduled for:03-10-10 After placing Future Orders, please route this Telephone Encounter to the following pool: AV Lab. ESTATE LAWYER documented in this encounter Plan of Treatment Not on filedocumented as of this encounter Results ALT (SGPT) (03/10/2010 10:01 AM REAL ESTATE LAWYER) P athologist Signature ALT (SGPT) 24 0 - 69 U/L [facility] Specimen Anatomical Collection Method Collection Time Receive d Time (Source) Location / / Volume Laterality 03/10/2010 10:03/10/2010 AM REAL ESTATE LAWYER 10:09 AM REAL ESTATE LAWYER Yaneth Dodd MD LAB_1 Performing Organization Address [facility] Phon e Number [facility] [phone] [facility] [address] [place] [phone] POTASSIUM (03/10/2010 10:01 AM REAL ESTATE LAWYER) athologist Signature Potassium 4.4 3.5 - 5.1 [facility] mmol/L Specimen Anatomical Collection Method Collection Time Receive d Time (Source) Location / / Volume Laterality 03/10/2010 10:01 03/10/2010 AM REAL ESTATE LAWYER 10:09 AM REAL ESTATE LAWYER Yaneth Dodd MD LAB_1 Performing Organization Address [facility] Phon e Number [facility] [phone] [facility] [address] [place] [phone] CREATININE / GFR (03/10/2010 10:01 AM REAL ESTATE LAWYER) Analysis Performed At Patho logist Time Signature Creatinine 1.03 0.66 - [facility] 1.25 mg/dl GFR, Estimated >60.0 >60 [facility] ml/min/1.7 3m2 GFR, Est., If >60.0 >60 [facility] Black ml/min/1.7 3m2 Specimen Anatomical Collection Method Collection Time Receive d Time (Source) Location / / Volume Laterality 03/10/2010 10:01 03/10/2010 AM REAL ESTATE LAWYER 10:09 AM REAL ESTATE LAWYER Yaneth Dodd MD LAB_1 Performing Organization Address City/[facility]/ZIP Code Phon e Number [facility] [phone] [address] (ABNORMAL) HEMOGRAM/PLTS (03/10/2010 10:01 AM REAL ESTATE LAWYER) P athologist Signature WBC 6.9 4.0 - 11.0 [facility] k/ul RBC 5.06 4.5 - 5.9 [facility] M/ul Hemoglobin 14.8 13.5 - [facility] 17.5 g/dl HCT 46.2 41.0 - [facility] 53.0 % MCV 91.4 80 - 100 [facility] fl MCH 29.2 26 - 34 pg [facility] MCHC 31.9 (L) 32 - 36 [facility] g/dl RDW 14.1 11.5 - [facility] 14.5 % Platelets 286 150 - 450 [facility] k/ul Specimen Anatomical Collection Method Collection Time Receive d Time (Source) Location / / Volume Laterality 03/10/2010 10:03/10/2010 AM REAL ESTATE LAWYER 10:09 AM REAL ESTATE LAWYER Yaneth Dodd MD LAB_1 Performing Organization Address [facility]/ZIP Code Phon e Number [facility] [phone] [address] (ABNORMAL) LIPID PANEL AND DIRECT LDL(IF NEEDED) (03/10/2010 10:01 AM REAL ESTATE LAWYER) [facility] gist Method Time Signature Cholesterol 275 (H) 0 - 199 [facility] mg/dl Triglyceride 173 (H) 0 - 149 [facility] mg/dl HDL 14 (L) >40 mg/dl [facility] LDL, Calc. 226 (H) 0 - 129 [facility] mg/dl Hours Fasting 12 hours [facility] Specimen Anatomical Collection Method Collection Time Receive d Time (Source) Location / / Volume Laterality 03/10/2010 10:01 03/10/2010 AM REAL ESTATE LAWYER 10:09 AM REAL ESTATE LAWYER Yaneth Dodd MD LAB_1 Performing Organization Address City/[facility]/ZIP Code Phon e Number [facility] [phone] [place] [phone] [address] documented in this encounter Visit Diagnoses Diagnosis Hypertension (HRC) - Primary Unspecified essential hypertension Encounter for long-term (current) use of other medications Hyperlipidemia LDL goal < 130 (HRC) Other and unspecified hyperlipidemia Screening for iron deficiency anemia documented in this encounter Care Teams Machinery Mover Relationship Specialty Start Date End Date Yaneth Dodd MD PCP - General 08/01/09 04/28/17 [address] [place] [address] documented as of this encounter
--- OUTSIDE RECORDS SUMMARY | 2022-02-09 09:12 | XMS_ITS | Encounter Summary ---
:1965 Author Organization [employer] Address [address] [place] [address] Care Team Providers Name Role Phone Yaneth Dodd MD Primary Care Provider Reason for Visit Reason Comments MEDICATION CHECK Health Maintanence Declined flu vaccine Encounter Details Date Type Department Care Team Description 11/19/2009 Office Visit [facility] Yaneth Dodd rlipidemia LDL Goal < 130 (Primary Dx); Criselda Crowe MD Hypertension; [address] [facility] [address] [facility] [place] [address] [phone] Social History Tobacco Use Types Packs/Day Years [...] Body Mass Index 26.91 05/13/2009 9:52 AM OPERATIONS OFFICER documented in this encounter Progress Notes Yaneth [...] migrainosus documented in this encounter Care Teams Clinical Nurse Specialist Relationship Specialty Start Date End Date Yaneth Dodd MD PCP - General 08/01/09 04/28/17 [address] [place] [address] documented as of this encounter
--- OUTSIDE RECORDS SUMMARY | 2022-02-09 09:12 | XMS_ITS | Encounter Summary ---
:1965 Author Organization [employer] Address [address] [place] [address] Care Team Providers Name Role Phone Yaneth Strong MD Primary Care Provider Reason for Visit Reason Comments Refill Encounter Details Date Type Department Care Team Description 08/31/2010 Refill [facility] Yaneth Strong MD Refill [address] [facility] [address] [place] [address] 24 [place] [address] [phone] (Wo rk) Social History Tobacco Use Types [...] on filedocumented in this encounter Care Teams Tinning Equipment Tender Relationship Specialty Start Date End Date Yaneth Strong MD PCP - General 08/01/09 04/28/17 [address] [place] [address] documented as of this encounter
--- OUTSIDE RECORDS SUMMARY | 2022-02-09 09:12 | XMS_ITS | Encounter Summary ---
:1965 Author Organization [employer] Address [address] [place] [address] Care Team Providers Name Role Phone Yaneth Dodd MD Primary Care Provider Reason for Visit Reason Comments BACK PAIN Encounter Details Date Type Department Care Team Description 02/05/[address] [facility] ([place], [place]) Yaneth Dodd low back pain Practice MD Sebastien (Primary Dx) [address] [address] [phone] Social History Tobacco Use Types Packs/Day Years [...] Comments Blood Pressure 112/68 02/05/2010 10:52 AM WIND TURBINE CONTROLS ENGINEER Pulse 86 02/05/2010 10:52 AM WIND TURBINE CONTROLS ENGINEER Temperature 36.7 ??C (98.1 ??F) 02/05/2010 10:52 AM WIND TURBINE CONTROLS ENGINEER Respiratory Rate - - Oxygen Saturation - - Inhaled Oxygen Concentration - - Weight 94.8 kg (209 lb) 02/05/2010 10:52 AM WIND TURBINE CONTROLS ENGINEER Height - - Body Mass Index 27.57 05/13/2009 9:52 AM WIND TURBINE CONTROLS ENGINEER documented in this encounter Progress Notes Yaneth [...] back will flare. 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 TURBINE CONTROLS ENGINEER documented in this encounter Plan of Treatment Not on filedocumented as of this encounter Visit Diagnoses Diagnosis Chronic low back pain - Primary Lumbago documented in this encounter Care Teams Fancy Sewer Relationship Specialty Start Date End Date Yaneth Dodd MD PCP - General 08/01/09 04/28/17 [address] [place] [address] documented as of this encounter
--- OUTSIDE RECORDS SUMMARY | 2022-02-09 09:12 | XMS_ITS | Encounter Summary ---
:1965 Author Organization [employer] Address [address] [place] [address] Care Team Providers Name Role Phone Yaneth Dodd MD Primary Care Provider Reason for Visit Reason Comments Follow-up, NOS Health Maintanence Declined flu Encounter Details Date Type Department Care Team Description 03/12/2010 Office Visit [facility] Yaneth Dodd MD (Primary Dx) [address] [place] [address] [phone] Social History Tobacco Use Types Packs/Day Years [...] Comments Blood Pressure 120/80 03/12/2010 9:50 AM MEASURING CLERK Pulse 74 03/12/2010 9:50 AM MEASURING CLERK Temperature - - Respiratory Rate - - Oxygen Saturation - - Inhaled Oxygen Concentration - - Weight 98.9 kg (218 lb) 03/12/2010 9:50 AM MEASURING CLERK Height - - Body Mass Index 28.76 05/13/2009 9:52 AM MEASURING CLERK documented in this encounter Progress Notes Yaneth [...] also consider taking a daily baby aspirin. URING CLERK documented in this encounter Plan of Treatment Not on filedocumented as of this encounter Visit Diagnoses Diagnosis Genital herpes (HRC) - Primary Genital herpes, unspecified documented in this encounter Care Teams Manager Ems Relationship Specialty Start Date End Date Yaneth Dodd MD PCP - General 08/01/09 04/28/17 [address] [place] [address] documented as of this encounter
--- OUTSIDE RECORDS SUMMARY | 2022-02-09 09:12 | XMS_ITS | Encounter Summary ---
:1965 Author Organization [facility] Address [address] [address] Care Team Providers Name Role Phone Yaneth Dodd MD Primary Care Provider Encounter Details Date Type Department Care Team Description 06/11/2010 Orders Only [facility] or Hyperlipidemia LDL goal < 13 0; [address] [facility] Screening for deficiency ane tye; [place], [place] [address] Hypertension [phone] Social History Tobacco Use Types Packs/Day Years [...] Organization Address [facility] Phon e Number [facility] [employer] [phone] [phone] ALT (SGPT) (06/11/2010 10:59 AM CDT) P athologist Signature ALT (SGPT) 42 0 - 69 U/L [facility] Specimen Anatomical Collection Method Collection Time Receive d Time (Source) Location / / Volume Laterality 06/11/2010 10:59 06/11/2010 AM CDT 11:02 AM CDT Yaneth Dodd MD LAB_1 Performing Organization Address [facility] Phon e Number [facility] [phone] [phone] (ABNORMAL) LIPID PANEL AND DIRECT LDL(IF NEEDED) (06/11/2010 10:59 AM CDT) [facility] gist Method Time Signature Cholesterol 148 0 - 199 [facility] mg/dl Triglyceride 168 (H) 0 - 149 [facility] mg/dl HDL 37 (L) >40 mg/dl [facility] LDL, Calc. 77 0 - 129 [facility] mg/dl Hours Fasting 13 hours [facility] Specimen Anatomical Collection Method Collection Time Receive d Time (Source) Location / / Volume Laterality 06/11/2010 10:59 06/11/2010 AM CDT 11:02 AM CDT Yaneth Dodd MD LAB_1 Performing Organization Address City/State/ZIP Code Phon e Number [facility] [phone] [facility] [address] [address] documented in this encounter Visit Diagnoses Diagnosis Hyperlipidemia LDL goal < 130 (HRC) Other and unspecified hyperlipidemia Screening for deficiency anemia Screening for other and unspecified defi ciency anemia Hypertension (HRC) Unspecified essential hypertension documented in this encounter Care Teams Licensed Pesticide Applicator Relationship Specialty Start Date End Date Yaneth Dodd MD PCP - General 08/01/09 04/28/17 [address] [place] [address] documented as of this encounter
--- OUTSIDE RECORDS SUMMARY | 2022-02-09 09:12 | XMS_ITS | Encounter Summary ---
:1965 Author Organization [employer] Address [address] [place] [address] Care Team Providers Name Role Phone Yaneth Dodd MD Primary Care Provider Reason for Visit Reason Onset Date Comments Refill 06/13/2010 Encounter Details Date Type Department Care Team Description 06/13/2010 Refill [facility] Yaneth Dodd MD Refill [address] [facility] [address] [place], [place] [address] [place] [address] [phone] (Wo rk) Social History Tobacco Use Types [...] on filedocumented in this encounter Care Teams Telecommunications Professional Relationship Specialty Start Date End Date Yaneth Dodd MD PCP - General 08/01/09 04/28/17 [address] [place] [address] documented as of this encounter
--- OUTSIDE RECORDS SUMMARY | 2022-02-09 09:13 | XMS_ITS | Encounter Summary ---
:1965 Author Organization [employer] Address [address] [place] [address] Care Team Providers Name Role Phone Unavailable Primary Care Provider Unavailable Reason for Visit Reason Comments BP CHECK, Encounter Details Date Type Department Care Team Description 05/13/2009 Office Visit [place] Yaneth Patel rlipidemia LDL Goal Criselda Crowe MD < 130 (Primary Dx) [address] [facility] [address] [place] [address] [phone] Social History Tobacco Use Types Packs/Day Years [...] Comments Blood Pressure 124/73 05/13/2009 9:52 AM ABLE SEAMAN Pulse 63 05/13/2009 9:52 AM ABLE SEAMAN Temperature 36.2 ??C (97.2 ??F) 05/13/2009 9:52 AM ABLE SEAMAN Respiratory Rate - - Oxygen Saturation - - Inhaled Oxygen Concentration - - Weight 95.3 kg (210 lb) 05/13/2009 9:52 AM ABLE SEAMAN Height 185.4 cm (6' 1) 05/13/2009 9:52 AM ABLE SEAMAN Body Mass Index 27.71 05/13/2009 9:52 AM ABLE SEAMAN documented in this encounter Patient Instructions Patient InstructionsKristin Palumbo - 05/13/2009 8:33 AM CST Thank you for visiting the [facility]. Should you have any questions or concerns please call my office during business hours at [phone] and leave a message along with a phone number where you can be reached during the day and a member of my care team will contact you. If you need assistance after business hours you can speak with a registered nurse by calling the Careline at [phone]. In addition we provide services after hours at the [facility] at our walk-in Urgent Care. Urgent Care Clinic hours are: Mon-Fri 5:00pm-9:00pm Wednesday 9:00am-5:00pm Wednesday Noon-5:00 pm To schedule an appointment please call [phone]. SEAMAN documented in this encounter Progress Notes Yaneth [...] difficulty. Again, encouraged exercise and diet control. SEAMAN documented in this encounter Plan of Treatment Not on filedocumented as of this encounter Results ALT (SGPT) (08/07/2009 8:38 AM CDT) P athologist Signature ALT (SGPT) 53 0 - 69 U/L [facility] Specimen Anatomical Collection Method Collection Time Receive d Time (Source) Location / / Volume Laterality 08/07/2009 8:38 AM 0 8:41 CDT AM CDT Yaneth Dodd MD LAB_1 Performing Organization Address City/State/ZIP Code Phon e Number [facility] [phone] [facility] [address] [address] (ABNORMAL) LIPID PANEL AND DIRECT LDL(IF NEEDED) (08/07/2009 8:38 AM CDT) [facility] gist Method Time Signature Cholesterol 214 (H) 0 - 199 [facility] mg/dl Triglyceride 230 (H) 0 - 149 [facility] mg/dl HDL 33 (L) >40 mg/dl [facility] LDL, Calc. 135 (H) 0 - 129 [facility] mg/dl Hours Fasting 11.5 hours [facility] Specimen Anatomical Collection Method Collection Time Receive d Time (Source) Location / / Volume Laterality 08/07/2009 8:38 AM 0 8:41 CDT AM CDT Yaneth Dodd MD LAB_1 Performing Organization Address City/State/ZIP Code Phon e Number [facility] [phone] [address] documented in this encounter Visit Diagnoses Diagnosis Hyperlipidemia LDL goal < 130 (HRC) - Pr imary Other and unspecified hyperlipidemia documented in this encounter
--- OUTSIDE RECORDS SUMMARY | 2022-02-09 09:13 | XMS_ITS | Encounter Summary ---
:1965 Author Organization [facility] Address [address] [place] [address] Care Team Providers Name Role Phone Yaneth Dodd MD Primary Care Provider Encounter Details Date Type Department Care Team Description 08/07/2009 Orders Only [facility] Hyperlipidemia LDL Goal < [address] [facility] [address] [place], [place] [address] Social History Tobacco Use Types [...] ALT (SGPT) 53 0 - 69 U/L [employer] Specimen Anatomical Collection Method Collection Time Receive d Time (Source) Location / / Volume Laterality 08/07/2009 8:38 AM 0 8:41 CDT AM CDT Yaneth Dodd MD LAB_1 Performing Organization Address [facility] Phon e Number [facility] [phone] [address] (ABNORMAL) LIPID PANEL AND DIRECT LDL(IF NEEDED) (08/07/2009 8:38 AM CDT) [facility] gist Method Time Signature Cholesterol 214 (H) 0 - 199 [facility] mg/dl Triglyceride 230 (H) 0 - 149 [facility] mg/dl HDL 33 (L) >40 mg/dl [facility] LDL, Calc. 135 (H) 0 - 129 [facility] mg/dl Hours Fasting 11.5 hours [facility] Specimen Anatomical Collection Method Collection Time Receive d Time (Source) Location / / Volume Laterality 08/07/2009 8:38 AM 0 8:41 CDT AM CDT Yaneth Dodd MD LAB_1 Performing Organization Address [facility] Phon e Number [facility] [phone] [address] documented in this encounter Visit Diagnoses Diagnosis Hyperlipidemia LDL goal < 130 (HRC) Other and unspecified hyperlipidemia documented in this encounter Care Teams Estimate Clerk Relationship Specialty Start Date End Date Yaneth Dodd MD PCP - General 08/01/09 04/28/17 [address] [place] [address] documented as of this encounter
--- OUTSIDE RECORDS SUMMARY | 2022-02-09 09:13 | XMS_ITS | Encounter Summary ---
:1965 Author Organization [facility] Address [address] [place] [address] Care Team Providers Name Role Phone Yaneth Dodd MD Primary Care Provider Reason for Visit Reason Comments HYPERLIPIDEMIA Encounter Details Date Type Department Care Team Description 08/12/2009 Office Visit [facility] Yaneth Dodd rlipidemia LDL Goal < 130 (Primary Dx); Criselda Crowe MD Screening for STDs (Sexually Transmitted Diseases) [address] [place] [address] [phone] Social History Tobacco Use Types Packs/Day Years [...] AM CDT) athologist Signature Anti-HCV Non-Reacti NR [facility] ve Comment: Does Not Rule Out Infection wit h HCV Specimen Anatomical Collection Method Collection Time Receive d Time (Source) Location / / Volume Laterality 08/12/2009 11:12 08/12/2009 AM CDT 11:16 AM CDT Yaneth Dodd MD LAB_1 Performing Organization Address City/State/ZIP Code Phon e Number [facility] [employer] [phone] [facility] [address] HIV ANTIBODY (08/12/2009 11:12 AM CDT) [facility] Method Time Signature HIV 1/2 Negative NEGNR [...] Dodd MD LAB_1 Performing Organization Address City/[facility] Phon e Number [facility] [employer] [phone] [address] RPR (SYPHILIS SCREEN) (08/12/2009 11:12 AM CDT) [facility] Method Time Signature Syphilis Non-React NR [facility] Screen(RPR) roxanna Specimen Anatomical Collection Method Collection Time Receive d Time (Source) Location / / Volume Laterality 08/12/2009 11:12 08/12/2009 AM CDT 11:16 AM CDT Yaneth Dodd MD LAB_1 Performing Organization Address City/[facility] Phon e Number [facility] [employer] [phone] [address] documented in this encounter Visit Diagnoses Diagnosis Hyperlipidemia LDL goal < 130 (HRC) - Pr imary Other and unspecified hyperlipidemia Screening for STDs (sexually transmitted diseases) Screening examination for venereal disea se documented in this encounter Care Teams Icu Tech Relationship Specialty Start Date End Date Yaneth Dodd MD PCP - General 08/01/09 04/28/17 [address] [place] [address] documented as of this encounter
--- OUTSIDE RECORDS SUMMARY | 2022-02-09 09:13 | XMS_ITS | Encounter Summary ---
:1965 Author Organization [facility] Address [address] [place] [address] Care Team Providers Name Role Phone Yaneth Dodd MD Primary Care Provider Reason for Visit Reason Onset Date Comments LAB TESTS, NOS 11/15/2009 Encounter Details Date Type Department Care Team Description 11/15/2009 Telephone [facility] Chris Dodd MD LAB TESTS, NOS [facility] [address] [facility] [address] [place] [address] [place] [address] [phone] Social History Tobacco Use Types Packs/Day Years [...] LAB_1 Performing Organization Address City/[facility] Phon e Number [employer] [phone] [facility] [address] [place] [address] (ABNORMAL) LIPID PANEL AND DIRECT LDL(IF NEEDED) (11/15/2009 10:19 AM CDT) Component Value Ref Test Analysis Performed At [facility] gist Range Method Time Signature Cholesterol [...] LAB_1 Performing Organization Address City/[facility] Phon e Number [employer] [facility] [phone] [facility] [address] [place] [address] documented in this encounter Visit Diagnoses Diagnosis Hyperlipidemia LDL goal < 130 (HRC) - Pr imary Other and unspecified hyperlipidemia documented in this encounter Care Teams Animal Husbandry Worker Relationship Specialty Start Date End Date Yaneth Dodd MD PCP - General 08/01/09 04/28/17 [address] [place], [place] [address] documented as of this encounter
--- OUTSIDE RECORDS SUMMARY | 2022-02-09 09:13 | XMS_ITS | Encounter Summary ---
:1965 Author Organization [facility] Address [address], [place] [address] Care Team Providers Name Role Phone Unavailable Primary Care Provider Unavailable Encounter Details Date Type Department Care Team Description 03/04/2009 Orders Only External to Unknown, Physici an [address] [place] [address] (Wo rk) Social History Tobacco [...] 03/04/2009 12:00 AM Resul ts for this HOOP RIVETING MACHINE OPERATOR HELPER procedure are i n the results section. SCANNED LAB 03/04/2009 12:00 AM Results for this HOOP RIVETING MACHINE OPERATOR HELPER procedure are i n the results section. documented in this encounter Results SCANNED LAB (03/04/2009 12:00 AM HOOP RIVETING MACHINE OPERATOR HELPER) Specimen (Source) Anatomical Location Collection Method / Collectio n Time Received Time / Laterality Volume 03/04/2009 Narrative 03/04/2009 12:00 AM HOOP RIVETING MACHINE OPERATOR HELPER This result has an attachment that is no t available. Ordered by an unspecified provider. Transcriptions Transferred Record, Provider - 9 12:00 AM HOOP RIVETING MACHINE OPERATOR HELPER Physician Unknown LAB_1 OUTSIDE IMAGING (03/04/2009 12:00 AM HOOP RIVETING MACHINE OPERATOR HELPER) Anatomical Region Laterality Modality Other Specimen (Source) Anatomical Location Collection Method / Collectio n Time Received Time / Laterality Volume 03/04/2009 Narrative 03/04/2009 12:00 AM HOOP RIVETING MACHINE OPERATOR HELPER This result has an attachment that is no t available. Ordered by an unspecified provider. Transcriptions Transferred Record, Provider - 9 12:00 AM HOOP RIVETING MACHINE OPERATOR HELPER Physician Unknown RAD_1 documented in this encounter Visit Diagnoses Not on filedocumented in this encounter
--- OUTSIDE RECORDS SUMMARY | 2022-02-09 09:13 | XMS_ITS | Encounter Summary ---
:1965 Author Organization [facility] Address [address] [place] [address] Care Team Providers Name Role Phone Yaneth Dodd MD Primary Care Provider Encounter Details Date Type Department Care Team Description 11/15/2009 Orders Only [facility] Hyperlipidemia LDL Goal < [address] [facility] [address] [place], [place] [address] Social History Tobacco Use Types [...] ALT (SGPT) 64 0 - 69 U/L [facility] Specimen Anatomical Collection Method Collection Time Receive d Time (Source) Location / / Volume Laterality 11/15/2009 10:19 11/15/2009 AM CDT 10:28 AM CDT Yaneth Dodd MD LAB_1 Performing Organization Address City/[facility] Phon e Number [facility] [phone] [address] (ABNORMAL) LIPID PANEL AND DIRECT LDL(IF NEEDED) (11/15/2009 10:19 AM CDT) Component Value Ref Test Analysis Performed At [facility] Range Method Time Signature Cholesterol 212 [...] Yaneth Dodd MD LAB_1 Performing Organization Address [facility] Phon e Number [facility] [place] [phone] [address] documented in this encounter Visit Diagnoses Diagnosis Hyperlipidemia LDL goal < 130 (HRC) Other and unspecified hyperlipidemia documented in this encounter Care Teams Revising Clerk Relationship Specialty Start Date End Date Yaneth Dodd MD PCP - General 08/01/09 04/28/17 [address] [place] [address] documented as of this encounter
--- OUTSIDE RECORDS SUMMARY | 2022-02-09 09:13 | XMS_ITS | Encounter Summary ---
:1965 Author Organization [facility] Address [address] [place] [address] Care Team Providers Name Role Phone Unavailable Primary Care Provider Unavailable Reason for Visit Reason Onset Date Comments LAB TESTS, NOS 05/08/2009 Encounter Details Date Type Department Care Team Description 05/08/2009 Telephone [facility] yesenia Crowe MD LAB TESTS, NOS [facility] [address] [facility] [address] [place] [address] [place] [address] [phone] Social History Tobacco Use Types Packs/Day Years Used Date Smoking Tobacco: Former Cigarettes 0.5 3 Cigars Comments: Occasional cigar Alcohol Use Standard Drinks/Week Comments Yes 0 (1 standard drink = 0.6 oz pure alcoho l) Rare Sex Assigned at Date Recorded Not on file documented as of this encounter Nursing Notes Ninfa Matos RN, BSN - 05/08/2009 12:05 PM CST Orders entered TATISTICS PROFESSOR Virginia Carrion - 05/08/2009 11:56 AM CST Patient on Lab Only Visit Schedule, no lab orders found in patient's chart. Please review and enter future lab orders or notify the patient that lab work is not needed. Lab Only Visit scheduled for:[id number] TATISTICS PROFESSOR documented in this encounter Plan of Treatment Not on filedocumented as of this encounter Results SODIUM (05/09/2009 9:32 AM BIOSTATISTICS PROFESSOR) athologist Signature Sodium 141 135 - 145 [facility] mmol/L Specimen Anatomical Collection Method Collection Time Receive d Time (Source) Location / / Volume Laterality 05/09/2009 9:32 AM 0 9:35 BIOSTATISTICS PROFESSOR AM BIOSTATISTICS PROFESSOR Yaneth Dodd MD LAB_1 Performing Organization Address [facility] Phon e Number [facility] [employer] [phone] [facility] [address] [place] [address] CREATININE / GFR (05/09/2009 9:32 AM BIOSTATISTICS PROFESSOR) Analysis Performed At [facility] Time Signature Creatinine 1.1 0.7 - 1.2 [facility] mg/dl GFR, Estimated 73.1 >60 [facility] ml/min/1.7 3m2 GFR, Est., If >80.0 >60 [facility] Black ml/min/1.7 3m2 Specimen Anatomical Collection Method Collection Time Receive d Time (Source) Location / / Volume Laterality 05/09/2009 9:32 AM 0 9:35 BIOSTATISTICS PROFESSOR AM BIOSTATISTICS PROFESSOR Yaneth Dodd MD LAB_1 Performing Organization Address [facility] Phon e Number [employer] [phone] [facility] [address] [place] [phone] POTASSIUM (05/09/2009 9:32 AM BIOSTATISTICS PROFESSOR) athologist Signature Potassium 4.2 3.5 - 5.3 [facility] mmol/L Specimen Anatomical Collection Method Collection Time Receive d Time (Source) Location / / Volume Laterality 05/09/2009 9:32 AM 0 9:35 BIOSTATISTICS PROFESSOR AM BIOSTATISTICS PROFESSOR Yaneth Dodd MD LAB_1 Performing Organization Address [facility] Phon e Number [employer] [phone] [phone] ALT (SGPT) (05/09/2009 9:32 AM BIOSTATISTICS PROFESSOR) P athologist Signature ALT (SGPT) 45 0 - 55 U/L [facility] Specimen Anatomical Collection Method Collection Time Receive d Time (Source) Location / / Volume Laterality 05/09/2009 9:32 AM 0 9:35 BIOSTATISTICS PROFESSOR AM BIOSTATISTICS PROFESSOR Yaneth Dodd MD LAB_1 Performing Organization Address City/[facility] e Number [employer] [phone] [facility] [address] [address] (ABNORMAL) LIPID PANEL AND DIRECT LDL(IF NEEDED) (05/09/2009 9:32 AM BIOSTATISTICS PROFESSOR) [facility] gist Method Time Signature Cholesterol 236 (H) 0 - 199 [facility] mg/dl Triglyceride 321 (H) 0 - 149 [facility] mg/dl HDL 31 (L) >40 mg/dl [facility] LDL, Calc. 141 (H) 0 - 129 [facility] mg/dl Hours Fasting 12 hours [facility] Specimen Anatomical Collection Method Collection Time Receive d Time (Source) Location / / Volume Laterality 05/09/2009 9:32 AM 0 9:35 BIOSTATISTICS PROFESSOR AM BIOSTATISTICS PROFESSOR Yaneth Dodd MD LAB_1 Performing Organization Address City/[facility] Phon e Number [employer] [phone] [facility] [address] [place] [phone] documented in this encounter Visit Diagnoses Diagnosis Encounter for long-term (current) use of other medications Hyperlipidemia LDL goal < 130 (HRC) Other and unspecified hyperlipidemia documented in this encounter
--- OUTSIDE RECORDS SUMMARY | 2022-02-09 09:13 | XMS_ITS | Encounter Summary ---
:1965 Author Organization [facility] Address [address] [place] [address] Care Team Providers Name Role Phone Unavailable Primary Care Provider Unavailable Encounter Details Date Type Department Care Team Description 05/09/2009 Orders Only [facility] Hyperlipidemia LDL Goal < 13 0; [address] [facility] Encounter for Long-Term (Cur rent) Use of Other Medications [place], [place] [address] Social History Tobacco Use [...] Hyperlipidemia LDL Results for this DIRECT LDL(IF HOSPICE/HOME HEALTH AIDE Goal < 130 procedure are in NEEDED) the results section. CREATININE / GFR Routine 05/09/2009 9:32 AM Encounter for Resu lts for this HOSPICE/HOME HEALTH AIDE Long-Term (Current) procedur e are in Use of Other the results Medications section. ALT (SGPT) Routine 05/09/2009 9:32 AM Encounter for Results for this HOSPICE/HOME HEALTH AIDE Long-Term (Current) procedur e are in Use of Other the results Medications section. Hyperlipidemia LDL Goal < 130 SODIUM Routine 05/09/2009 9:32 AM Encounter for Results for this HOSPICE/HOME HEALTH AIDE Long-Term (Current) procedur e are in Use of Other the results Medications section. POTASSIUM Routine 05/09/2009 9:32 AM Encounter for Results for this HOSPICE/HOME HEALTH AIDE Long-Term (Current) procedur e are in Use of Other the results Medications section. documented in this encounter Results SODIUM (05/09/2009 9:32 AM HOSPICE/HOME HEALTH AIDE) athologist Signature Sodium 141 135 - 145 [facility] mmol/L Specimen Anatomical Collection Method Collection Time Receive d Time (Source) Location / / Volume Laterality 05/09/2009 9:32 AM 0 9:35 HOSPICE/HOME HEALTH AIDE AM HOSPICE/HOME HEALTH AIDE Yaneth Dodd MD LAB_1 Performing Organization Address [facility] Phon e Number [facility] [employer] [phone] [facility] [address] [place] [phone] CREATININE / GFR (05/09/2009 9:32 AM HOSPICE/HOME HEALTH AIDE) [facility] Time Signature Creatinine 1.1 0.7 - 1.2 [facility] mg/dl GFR, Estimated 73.1 >60 [facility] ml/min/1.7 3m2 GFR, Est., If >80.0 >60 [facility] Black ml/min/1.7 3m2 Specimen Anatomical Collection Method Collection Time Receive d Time (Source) Location / / Volume Laterality 05/09/2009 9:32 AM 0 9:35 HOSPICE/HOME HEALTH AIDE AM HOSPICE/HOME HEALTH AIDE Yaneth Dodd MD LAB_1 Performing Organization Address [facility] Phon e Number [employer] [phone] [facility] [address] [place] [phone] POTASSIUM (05/09/2009 9:32 AM HOSPICE/HOME HEALTH AIDE) athologist Signature Potassium 4.2 3.5 - 5.3 [facility] mmol/L Specimen Anatomical Collection Method Collection Time Receive d Time (Source) Location / / Volume Laterality 05/09/2009 9:32 AM 0 9:35 HOSPICE/HOME HEALTH AIDE AM HOSPICE/HOME HEALTH AIDE Yaneth Dodd MD LAB_1 Performing Organization Address [facility] Phon e Number [facility] [employer] [phone] [phone] ALT (SGPT) (05/09/2009 9:32 AM HOSPICE/HOME HEALTH AIDE) P athologist Signature ALT (SGPT) 45 0 - 55 U/L [facility] Specimen Anatomical Collection Method Collection Time Receive d Time (Source) Location / / Volume Laterality 05/09/2009 9:32 AM 0 9:35 HOSPICE/HOME HEALTH AIDE AM HOSPICE/HOME HEALTH AIDE Yaneth Dodd MD LAB_1 Performing Organization Address City/[facility] Phon e Number [employer] [phone] [facility] [address] [phone] (ABNORMAL) LIPID PANEL AND DIRECT LDL(IF NEEDED) (05/09/2009 9:32 AM HOSPICE/HOME HEALTH AIDE) [facility] gist Method Time Signature Cholesterol 236 (H) 0 - 199 [facility] mg/dl Triglyceride 321 (H) 0 - 149 [facility] mg/dl HDL 31 (L) >40 mg/dl [facility] LDL, Calc. 141 (H) 0 - 129 [facility] mg/dl Hours Fasting 12 hours [facility] Specimen Anatomical Collection Method Collection Time Receive d Time (Source) Location / / Volume Laterality 05/09/2009 9:32 AM 0 9:35 HOSPICE/HOME HEALTH AIDE AM HOSPICE/HOME HEALTH AIDE Yaneth Dodd MD LAB_1 Performing Organization Address City/[facility] Phon e Number [employer] [phone] [facility] [address] [place] [phone] documented in this encounter Visit Diagnoses Diagnosis Hyperlipidemia LDL goal < 130 (HRC) Other and unspecified hyperlipidemia Encounter for long-term (current) use of other medications documented in this encounter
--- OUTSIDE RECORDS SUMMARY | 2022-02-09 09:13 | XMS_ITS | Encounter Summary ---
:1965 Author Organization [facility] Address [address] [place] [address] Care Team Providers Name Role Phone Unavailable Primary Care Provider Unavailable Reason for Visit Reason Comments MEDICATION CHECK LAB TESTS, NOS WART on right pointer finger Encounter Details Date Type Department Care Team Description 02/27/2009 Office Visit [facility] Camilo Martinez, Hyper lipidemia LDL Goal < 130 (Primary Dx); Practice MD Hypertension; [address] [facility] [address] [facility] Genital Herpes; [place], [place] General ized Headaches; [address] Chronic Low Back Pain; [phone] GERD (Gastroeso phageal Reflux Disease) (Work) Social [...] Comments Blood Pressure 126/90 02/27/2009 10:13 AM SUPERVISOR FIBERGLASS BOAT ASSEMBLY Pulse 60 02/27/2009 10:13 AM SUPERVISOR FIBERGLASS BOAT ASSEMBLY Temperature - - Respiratory Rate 16 02/27/2009 10:13 AM SUPERVISOR FIBERGLASS BOAT ASSEMBLY Oxygen Saturation - - Inhaled Oxygen Concentration - - Weight 95.2 kg (209 lb 12.8 oz) 02/27/2009 10:13 AM SUPERVISOR FIBERGLASS BOAT ASSEMBLY Height 185.4 cm (6' 1) 02/27/2009 10:13 AM SUPERVISOR FIBERGLASS BOAT ASSEMBLY Body Mass Index 27.68 02/27/2009 10:13 AM SUPERVISOR FIBERGLASS BOAT ASSEMBLY documented in this encounter Progress Notes Camilo Martinez - 02/27/2009 1:00 PM CST SUBJECTIVE: Patient presents for first visit to our clinic. Previous followed by Dr. Jose Antonio Mckeon at [facility]. His history of chronic low back pain [...] desired but forgot to do that today. RVISOR F[employer]ERGLASS BOAT ASSEMBLY documented in this encounter Plan of Treatment Not on filedocumented as of this encounter Procedures Procedure Name Priority Date/Time Associated Diagnosis Comme nts LIPID PANEL AND Routine 02/27/2009 11:04 Hyperlipidemia LDL Go al Results for this DIRECT LDL(IF AM SUPERVISOR FIBERGLASS BOAT ASSEMBLY < 130 procedure are in NEEDED) the results section. ALT (SGPT) Routine 02/27/2009 11:04 Hyperlipidemia LDL Goal Results for this AM SUPERVISOR FIBERGLASS BOAT ASSEMBLY < 130 procedure are i n the results section. documented in this encounter Results ALT (SGPT) (02/27/2009 11:04 AM SUPERVISOR FIBERGLASS BOAT ASSEMBLY) P athologist Signature ALT (SGPT) 48 0 - 55 U/L [facility] Specimen Anatomical Collection Method Collection Time Receive d Time (Source) Location / / Volume Laterality 02/27/2009 11:04 02/27/2009 AM SUPERVISOR FIBERGLASS BOAT ASSEMBLY 11:12 AM SUPERVISOR FIBERGLASS BOAT ASSEMBLY Camilo Martinez MD LAB_1 Performing Organization Address City/[facility] Phon e Number [facility] [employer] [phone] [facility] [address] [place] [phone] (ABNORMAL) LIPID PANEL AND DIRECT LDL(IF NEEDED) (02/27/2009 11:04 AM SUPERVISOR FIBERGLASS BOAT ASSEMBLY) [facility] Method Time Signature Cholesterol 232 (H) 0 - 199 [facility] mg/dl Triglyceride 270 (H) 0 - 149 [facility] mg/dl HDL 39 (L) >40 mg/dl [facility] LDL, Calc. 139 (H) 0 - 129 [facility] mg/dl Hours Fasting 12 hours [facility] Specimen Anatomical Collection Method Collection Time Receive d Time (Source) Location / / Volume Laterality 02/27/2009 11:04 02/27/2009 AM SUPERVISOR FIBERGLASS BOAT ASSEMBLY 11:12 AM SUPERVISOR F[employer]ERGLASS BOAT ASSEMBLY Camilo Martinez MD LAB_1 Performing Organization Address City/[facility] Phon e Number [facility] [employer] [phone] [phone] documented in this encounter Visit Diagnoses Diagnosis Hyperlipidemia LDL goal < 130 (HRC) - Pr imary Other and unspecified hyperlipidemia Hypertension (HRC) Unspecified essential hypertension Genital herpes (HRC) Genital herpes, unspecified Generalized headaches Headache Chronic low back pain Lumbago GERD (gastroesophageal reflux disease) Esophageal reflux documented in this encounter
--- OUTSIDE RECORDS SUMMARY | 2022-02-09 09:13 | XMS_ITS | Encounter Summary ---
:1965 Author Organization [facility] Address [address] [place] [address] Care Team Providers Name Role Phone Unavailable Primary Care Provider Unavailable Encounter Details Date Type Department Care Team Description 03/04/2009 Scanned History External to Transferred Record, SHERYL [facility] Social History Tobacco Use Types Packs/Day Years Used Date Smoking Tobacco: Former Cigarettes 0.5 3 Cigars Comments: Occasional cigar Alcohol Use Standard Drinks/Week Comments Yes 0 (1 standard drink = 0.6 oz pure alcoho l) Rare Sex Assigned at Date Recorded Not on file documented as of this encounter Progress Notes Interface, In Chrtscr And Scan - 03/04/2009 6:56 AM SOAKER MEAT ER MEAT documented in this encounter Plan of Treatment Not on filedocumented as of this encounter Visit Diagnoses Not on filedocumented in this encounter
[2022-02-09 13:56] LABS: Albumin* 3.8 g/dL (3.3-5.0)
[2022-02-09 13:57] LABS: Chloride* 104 mmol/L (96-114); Potassium* 4.6 mmol/L (3.6-5.1); Sodium* 139 mmol/L (135-149)
[2022-02-09 13:59] LABS: Bilirubin Total* 0.6 mg/dL (0.1-1.5); Creatinine* 1.1 mg/dL (0.5-1.5); Estimated Glomerular Filt Rate 79 ml/min
[2022-02-09 14:00] LABS: Alanine Aminotransferase* 63 U/L (4-50); Alkaline Phosphatase* 74 U/L (40-150); Aspartate Amino Transferase* 59 U/L (12-35); Blood Urea Nitrogen* 11 mg/dL (7-30); Calcium* 8.8 mg/dL (8.4-10.6); Carbon Dioxide* 26 mmol/L (20-32); Glucose* 77 mg/dL (60-115); Total Protein* 6.5 g/dL (6.0-8.3)
== END 2022-02-09 08:55 | disposition home or self-care (01) ==
PROVIDERS: PCP Family Medicine; Visit Provider Family Medicine
DX: Z01.818 Encounter for other preprocedural examination (principal)
CPT/HCPCS: 80053

== ENCOUNTER 2022-02-11 08:56 | Day surgery (SDC) | payer MEDICAID, OTHER, SELFPAY ==
[2022-02-11] VITALS (13 sets, daily range): BP systolic 127–151; BP diastolic 64–89; PULSE 54–69; RESP 15–20; TEMP 36.2–36.9; O2SAT 94–100; BMI 28.5
[2022-02-11] MEDS: LACTATED RINGERS 1000 ML 1,000 ML 100 ML IV (09:30)
[2022-02-11] MEDS: SODIUM CHLORIDE 0.9 % (FLUSH) 10 ML SYRINGE IVF (09:45)
[2022-02-11] MEDS: fentaNYL 100 MCG/2 ML inj IVP (10:44)
[2022-02-11] MEDS: MIDAZOLAM HCL 1 MG/ML inj IVP (10:44)
--- NOTE | 2022-02-11 10:44 | SUR.PREOP ---
TIME?OUT:?1044 PT/RN/MDA?VERIFICATION?OF?SURGICAL?SITE,?PROCEDURE,?AND?CONSENT OBTAINED?PRIOR?TO?INVASIVE?PROCEDURE.
[2022-02-11] MEDS: CEFAZOLIN 2 GM in 0.9 % SODIUM CHLORIDE Mini-bag 100 ML IVPB (11:14)
--- NOTE | 2022-02-11 11:25 | W.PM.NB ---
Nerve Block Nerve Block Time Seen by Provider: 10:45 Date Seen: 02/11/22 Type of block requested by surgeon for post-operative analgesia: supraclavicular Side: right Time out performed: Yes Verification of patient name: Yes Verification of date of : Yes Site marking: site marked Name of person performing procedure: Jose Francisco Teresa, if any: Carlos Continuous monitoring Was continuous monitoring of O2 sat, B/P, awake overnight monitor, recorded every 15 minutes?: Yes Procedure Checklist: sterile prep, needles and gloves Ultrasound guided. Images saved: Yes Medications given in 5ml increments after negative aspiration: Ropivicaine %: 0.5 mL: 20 Needle gauge: 22 Decadron (mg): 10 Precedex (mcg): 25 Patient tolerated procedure well: Yes Block Charges Block Charge (with Pro Fee): Brachial Plexus Use of Ultrasound Machine for Block: Yes- US Guidance/pain block
[2022-02-11] MEDS: EPINEPHrine 1 MG in SODIUM CHLORIDE IRRIG SOLUTION 3,000 ML 9003 MG IRRIGATION ×2 (11:31→11:51)
--- NOTE | 2022-02-11 12:13 | PM.ORPRC ---
Procedure Note Date of procedure: 02/11/22 Procedure: PREOPERATIVE DIAGNOSES: 1. Right shoulder rotator cuff tear. 2. Right shoulder AC degenerative joint disease, primary, moderate-severe 3. Right shoulder subacromial impingement syndrome. POSTOPERATIVE DIAGNOSES: 1. Right shoulder rotator cuff tear - upper border subscapularis full-thickness with mild retraction 2. Right shoulder AC degenerative joint disease, primary, moderate-severe 3. Right shoulder anterior labral tearing 4. Right shoulder subacromial impingement syndrome. NAME OF OPERATION: 1. Right shoulder arthroscopic rotator cuff repair (full-thickness upper border subscapularis) 2. Right shoulder arthroscopic distal clavicle excision 3. Right shoulder arthroscopic limited glenohumeral debridement 4. Right shoulder arthroscopic bursectomy, subacromial decompression/partial acromioplasty. SURGEON: Dago Rojo MD RESOURCES REPRESENTATIVE: Salvatore Levine PA-C. Of note, a skilled credit control assistant was critical for this case to aide in patient positioning, suture manipulation, arm positioning, instrument positioning, and closure. ANESTHESIA: General plus preoperative supraclavicular block. EBL: Less than 50 mL IMPLANTS: Arthrex 4.75 mm BioComposite SwiveLock suture anchor (x1) COMPLICATIONS: None evident INDICATIONS: The patient is a pleasant, 56-year-old male who has experienced right shoulder pain that has been increasing in recent time. Physical exam and imaging were consistent with a rotator cuff tear. Given their findings, as well as the weakness and pain, and inadequate response to nonoperative management, recommendation was made for surgery. FINDINGS: Exam under anesthesia revealed stable shoulder with excellent range of motion. The diagnostic arthroscopy revealed healthy chondral surfaces of the glenohumeral joint. The Subscapularis tendon was torn from its upper border full-thickness with mild retraction the lower 2/3 of the subscapularis remained intact. The long head of the biceps tendon was intact with mild partial tearing low-grade manner. The superior rotator cuff tendon was found to be intact on both the articular and bursal sides without evidence of tearing. The labrum was torn in its anterior aspect. No loose bodies were identified within the pouch or subscapularis recess. PROCEDURE: Following a thorough discussion of risks, benefits, and alternatives, consent was obtained and the right shoulder was marked. The patient was brought to the operating room and placed supine on the operating table. Induction of anesthesia was completed after preoperative supraclavicular block was administered in preop holding. Appropriate time out was performed identifying proper patient, site, and procedure. 2 g IV Ancef was administered within 1 hour of incision preoperatively. The right upper extremity was prepped and draped in the appropriate sterile fashion using ChloraPrep prep. This was after the patient was positioned in the beach chair with their head in neutral alignment and all bony prominences well padded. The shoulder was insufflated with 20mL of normal saline via an 18g spinal needle from a posterior approach. An 11 blade skin incision allowed a blunt trochar to be inserted and diagnostic arthroscopy to be performed with the findings as noted above. An anterior portal was established with an outside in technique. This allowed the probe to be inserted and confirm the diagnostic arthroscopic findings. The shaver was then inserted and allowed debridement of anterior labrum as well as the biceps sheath on the superior surface with the partial tearing was. Following this, the upper border subscapularis was repaired after debriding the lesser tuberosity with the shaver and [place] cautery. Subscapularis was captured in horizontal mattress fashion with a fiber tape suture. The tails were brought to a single anchor in the lesser tuberosity with excellent reapproximation of the subscap tendon and good excursion/tension. Thereafter, the subacromial space was entered. Here, a complete bursectomy and partial acromioplasty/subacromial decompression was performed with a combination of radiofrequency ablator, the shaver, and a 5.5 mm bur. Additionally, distal clavicle excision was performed with the bur. 8 mm of distal clavicle was resected based on the with of our bur. Further inspection of the supraspinatus and infraspinatus rotator cuff was performed. This identified no evidence of tearing. Again the deep articular surface as well as the superficial bursal surface were both probed and directly visualized without evidence of tearing. A probe remained on the tissue not penetrating through indicating integrity of the tissue was appropriate. The shoulder was placed through range of motion and found to be stable. The rotator cuff was re-probed and found to be stable. Instruments were removed. Excess fluid was drained, closure performed with 4-0 Monocryl and Steri-Strips. Dressings were applied. Sling was applied. The patient was awoken from anesthesia and transferred to the PACU in stable condition. A skilled credit control assistant was critical for this case to aid in patient positioning, limb positioning, skill to manipulate arthroscopic instruments and camera, suture management, patient safety, and closure. PLAN: 1. Elbow, forearm, wrist and digit range of motion as tolerated. 2. Encouraged ice. 3. Percocet for pain as needed. 4. Sling at all times except for ROM and showering. 5. Follow up with PA visit in 1-2 weeks for wound check. Initiate physical therapy following that visit for passive range of motion. Initiate active assisted range of motion at 4-6 weeks. May do pendulums now.
--- NOTE | 2022-02-11 12:32 | W.ANESCHARGE ---
Anesthesia Charges Start Date/Time Anesthesia Start Date: 02/11/22 Anesthesia Start Time: 11:03 Stop Date/Time Anesthesia Stop Date: 02/11/22 Anesthesia Stop Time: 12:30 Summary Emergency: No
--- NOTE | 2022-02-11 12:35 | W.ANESCHARGE ---
Anesthesia Charges Start Date/Time Anesthesia Start Date: 02/11/22 Anesthesia Start Time: 11:03 Stop Date/Time Anesthesia Stop Date: 02/11/22 Anesthesia Stop Time: 12:30 Summary Emergency: No
[2022-02-11] MEDS: hydrOXYzine pamoate 25 MG CAPSULE PO (12:46)
[2022-02-11] MEDS: fentaNYL 100 MCG/2 ML inj 50 MCG IVP (13:28)
== END 2022-02-11 14:10 | disposition home or self-care (01) ==
PROVIDERS: PCP Family Medicine; Visit Provider Orthopaedic Surgery Sports Medicine
PROC: (CPT 29805; principal; 2022-02-11 10:15)
DX: M75.121 Complete rotator cuff tear or rupture of right shoulder, not specified as traumatic (principal); M19.011 Primary osteoarthritis, right shoulder; M75.41 Impingement syndrome of right shoulder; S43.431A Superior glenoid labrum lesion of right shoulder, initial encounter
CPT/HCPCS: 29827; 29826; 29824; 29822; 01630; 64415; 76942; A9270; C1713; J0171; J0330; J0690; J1100; J2250; J2370; J2405; J2704; J2795; J3010; J7120

== ENCOUNTER 2022-05-04 14:58 | Outpatient (CLI) | payer MEDICAID, SELFPAY ==
[2022-05-04 22:16] LABS: Chloride* 104 mmol/L (96-114); Potassium* 3.4 mmol/L (3.6-5.1); Sodium* 137 mmol/L (135-149)
[2022-05-04 22:19] LABS: Blood Urea Nitrogen* 11 mg/dL (7-30); Carbon Dioxide* 30 mmol/L (20-32); Creatinine* 1.1 mg/dL (0.5-1.5); Estimated Glomerular Filt Rate 79 ml/min; Glucose* 110 mg/dL (60-115)
[2022-05-04 22:20] LABS: Calcium* 8.1 mg/dL (8.4-10.6)
[2022-05-06 20:06] LABS: Testosterone, Adult Male 784 ng/dL (300-890)
== END 2022-05-04 14:59 | disposition home or self-care (01) ==
PROVIDERS: PCP Family Medicine; Visit Provider Family Medicine
DX: E29.1 Testicular hypofunction (principal); I10 Essential (primary) hypertension
CPT/HCPCS: 80048; 84403

== ENCOUNTER 2022-06-11 14:45 | Outpatient (RCR) | payer MEDICAID, SELFPAY ==
--- NOTE | 2022-03-12 12:45 | PT.OPEX ---
PT [place] [facility] PT [facility] Eval Start: 03/12/22 11:00 Freq: Status: Active Protocol: Document 03/12/22 11:01 [facility] (Rec: 03/12/22 11:49 [facility] [id number]) E-signed By Guru Davies PT Physical Therapy Outpatient Evaluation Insurance Information Medical Diagnosis s/p arthroscopy of right shoulder 02/11/22 Right shoulder arthroscopic rotator cuff repair (full- thickness upper border subscapularis) Right shoulder arthroscopic distal clavicle excision limited glenohumeral debridement bursectomy, subacromial decompression/partial acromioplasty Treating Diagnosis Right shoulder pain M25.511 Right shoulder stiffness M25.61 Muscle weakness M62.81 Referring MD CHERYL Arreola Subjective Subjective Pt. reports that he reached for the crawford in the ignition today, felt sharp pain in shoulder. It is ok right now. He also slept without the immobilizer for the first time last night and woke up with pain. Pt expressed a lot of concern/anxiety over the potential to retear the tendon and/or not fully heal given his history of slow healing bones and multiple tendon ruptures/injuries. 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 Somewhat guarded. Assessment Assessment/Impression 56 year old male presents 4 weeks s/p right shoulder arthroscopic surgery for subscapularis full thickness tear repair, SAD, GH debridement and distal clavicle excision. Patient has a complex PMH of other upper extremity tendon tears/ repairs and multiple fractures that, reportedly, did not heal well. As a result, patient is very anxious about reinjuring his right shoulder post-op. However, he also was actively using his right arm to reach and needed repeated reminders that active ROM is not yet allowed, only active assisted and passive ROM. Patient demonstrated good PROM of right shoulder for his first session. He was most limited with abduction and IR. He responded positively to initiation of AAROM ex today using cane and pulleys. Patient to benefit from skilled PT for safe progression of HEP per surgeon protocol and ongoing education about activity guidelines. 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 Plan of Care Rehabilitation Potential Good Rehabilitation Potential Comments Limited by PMH of multiple orthopedic injuries/slow healing Physical Therapy Goals In 2 weeks, patient will: 1) Restore full PROM right shoulder in preparation for advancing to AROM/ strengthening of right shoulder In 8 weeks, patient will: 2) Resume baseline level of sleeping where right shoulder pain is not limiting factor 3) Don/doff coat painfree 4) Lift and carry 50 lbs with both arms, right shoulder pain max 2/10 5) Use skidloader, pain max 2/ 10 Coordination/Communication With Referral Source Treatment Plan/Direct Interventions Manual Therapy,Neuromuscular Re-ed,Self-Care/Home Management,Therapeutic Activities,Therapeutic Exercises Direct Interventions Clarification post-op RCR protocol Comments Frequency/Duration 2x/week for 8 weeks Patient Will Be Discharged From Therapy Completion of LTG(s), Independent w/HEP, Independently Progressing Evaluation Billing Complexity Moderate Certification Information Physician Comment/Change : Physician NPI Number #
== END 2022-06-16 15:28 | disposition home or self-care (01) ==
PROVIDERS: PCP Family Medicine; Visit Provider Physician Assistant Surgical
DX: M25.511 Pain in right shoulder (principal); M62.81 Muscle weakness (generalized); M25.611 Stiffness of right shoulder, not elsewhere classified; Z98.890 Other specified postprocedural states; Z51.89 Encounter for other specified aftercare
CPT/HCPCS: 97110; 97140; 97162; 97535

== ENCOUNTER 2022-06-18 12:45 | Outpatient (CLI) | payer MEDICAID, SELFPAY ==
--- NOTE | 2022-06-18 13:00 | MR_ITS ---
[address] [address] Phone:?[phone] Fax:?[phone] Referring Physician Information: Dago Rojo M.D. [address] [facility] [address] Phone:?[phone] Fax:?[phone] Patient:Janett Alvarado D.O.B:?1965 Sex:?Male Phone:?[phone] [facility] MRN:?[id number] Exam Date:?06/18/2022 ? EXAM: MRI of the LEFT SHOULDER, without contrast CLINICAL HISTORY: Left shoulder pain. Suspect rotator cuff tear. COMPARISONS: Plain radiographs 02/05/2022. MRI 03/22/2020. TECHNICAL: MRI sequences of the left shoulder: Axials: PD, T2 Coronals: PD, STIR, T2 Sagittals: PD, T2 Axials: PD, PDFS Coronals: PD, T2FS Sagittals: PDFS, T2 SEDATION: None CONTRAST: None FINDINGS: Bones: No fracture or suspicious bone marrow signal abnormality. Coracoacromial arch: Acromion: No os acromiale. Type I acromion. Acromiohumeral space: The bony distance is unremarkable. Coracohumeral space: The bony distance is unremarkable. Acromioclavicular joint: High-grade tear of the acromioclavicular ligament is new compared to previous MRI 03/22/2020 with widening of the acromioclavicular joint. There are mild degenerative changes. Coracoclavicular ligament: The coracoclavicular ligament is intact. There is no superior subluxation of the distal clavicle. Rotator cuff muscles/tendons: Supraspinatus: Mild tendinopathy, unchanged compared to previous MRI 03/22/2020. No rotator cuff tendon tear or muscular atrophy. Infraspinatus: Mild tendinopathy, new compared to previous MRI 03/22/2020. No muscular atrophy. Teres minor: The teres minor tendon and muscle are intact. Subscapularis: 1.0 cm in craniocaudad dimension by 2.5 cm in transverse dimension ill-defined low-grade partial-thickness intrasubstance/interstitial tear within the superior portion of the subscapularis tendon best seen on sagittal images 13 through 7 and axial series 3.1 image 16 superimposed upon mild subscapularis tendinopathy, not seen on previous MRI 03/22/2020. No muscular atrophy. Labrum: The labrum is not well evaluated by this nonarthrogram study. Proximal biceps tendon, long head and short heads: The long and short heads of the proximal biceps tendon are intact. Glenohumeral joint: Moderate glenohumeral joint effusion. No full-thickness chondral defect or subchondral bone marrow edema/cystic change is seen. No convincing evidence of capsular edema or thickening although evaluation is suboptimal because of lack of joint distention. Bursae: Subacromial/subdeltoid: Mild bursitis, unchanged compared to previous MRI 03/22/2020. Subcoracoid: No convincing subcoracoid bursal thickening/bursitis. IMPRESSION: 1. 1.0 x 2.5 cm ill-defined low-grade partial-thickness intrasubstance/interstitial tear within the superior portion of the subscapularis tendon superimposed upon mild subscapularis tendinopathy, not seen on previous MRI 03/22/2020. 2. Mild infraspinatus tendinopathy, new compared to previous MRI 03/22/2020. 3. Mild supraspinatus tendinopathy, unchanged compared to previous MRI 03/22/2020. Correlation with specific AP external rotation view radiograph of the left shoulder is recommended to evaluate for the possibility of calcium hydroxyapatite deposition/calcific tendinitis. 4. Mild subacromial/subdeltoid bursitis, unchanged compared to previous MRI 03/22/2020. 5. High-grade tear of the acromioclavicular ligament, new compared to previous MRI 03/22/2020, with widening of the acromioclavicular joint. Intact coracoclavicular ligament without superior subluxation of the distal clavicle. 6. Moderate glenohumeral joint effusion. 7. Intact biceps tendon. RCB Electronically signed on 06/18/2022 3:41:00 PM by Akhil José M.D.
== END 2022-06-18 12:46 | disposition home or self-care (01) ==
LOC: MRI 12:45
PROVIDERS: PCP Family Medicine; Visit Provider Orthopaedic Surgery Sports Medicine
DX: M25.512 Pain in left shoulder (principal); M75.52 Bursitis of left shoulder; M25.412 Effusion, left shoulder; M67.912 Unspecified disorder of synovium and tendon, left shoulder
CPT/HCPCS: 73221

== ENCOUNTER 2022-10-16 10:18 | Outpatient (CLI) | payer MEDICAID, SELFPAY | END 2022-10-16 10:19 | disposition home or self-care (01) | PROVIDERS: PCP Family Medicine; Visit Provider Family Medicine | DX: E78.5 Hyperlipidemia, unspecified (principal); I10 Essential (primary) hypertension; R53.83 Other fatigue | CPT/HCPCS: 80048; 80061; 82306; 84403; 84460 ==

== ENCOUNTER 2022-12-18 13:26 | Outpatient (CLI) | payer MEDICAID, SELFPAY ==
--- NOTE | 2022-12-18 13:45 | MR_ITS ---
[facility] [address] [facility] [address] Phone:?[phone] Fax:?[phone] Referring Physician Information: Dago Rojo M.D. [address] [facility] [address] Phone:?[phone] Fax:?[phone] Patient:?Nicanor Alvarado D.O.B:?1965 Sex:?Male Phone:?[phone] [facility] MRN:?[id number] Exam Date:?12/18/2022 EXAM: MRI of the RIGHT SHOULDER, without contrast CLINICAL INFORMATION: Male, 57 years old, with right shoulder pain. INDICATION: Evaluate for rotator cuff or biceps rupture. PRIOR SURGERY: History of rotator cuff repair in 2021. PLAIN FILMS: None available. COMPARISONS: No prior MRIs available. TECHNICAL INFORMATION: Using a 1.5T MR scanner and a localizing surface coil: coronal obliques: PD, T2, STIR sagittal obliques: PD, T2 axials: PD, T2 SEDATION: None CONTRAST: None FINDINGS: Bones: Proximal humerus: A surgical anchor is present in the proximal humerus suggestive of biceps tenodesis or subscapularis appear, described below. No stress/occult fracture or otherwise abnormal marrow signal/pathology. No humeral Hill-Sachs or reverse Hill-Sachs lesion/impaction or contusion. Glenoid: No fracture or marrow edema/pathology. No osseous [place] lesion. Rotator cuff and muscles/tendons: Supraspinatus: Moderate supraspinatus tendinopathy and fraying, without tear. No muscle atrophy. Infraspinatus: Moderate infraspinatus tendinopathy, without tendon tear or muscle atrophy. Teres minor: No tendinopathy, tear or atrophy. Subscapularis: Moderate supraspinatus tendinopathy with a single surgical anchor noted along the superior distal tendon fibers, with interstitial fraying at the superior leading edge of the tendon, but without more well-defined tearing (sagittal T2 series 8 images 9-13). No muscle atrophy. Deltoid: No strain or atrophy. Coracoacromial arch: Acromion morphology: Status post anterior acromioplasty for subacromial decompression, with good result. No os acromiale. Acromiohumeral space: The acromiohumeral space is decompressed. Coracohumeral space: The coracohumeral space is within normal limits. Acromioclavicular joint: Joint: Status post AC joint resection for subacromial decompression, with good result. Ligaments: Coracoclavicular ligaments are intact. Bursae: Subacromial-subdeltoid: No convincing subacromial bursal thickening/bursitis. Subcoracoid: No convincing subcoracoid bursal thickening/bursitis. Biceps tendon: Status post biceps tenodesis at the superior aspect of the bicipital groove. However, the biceps long head tendon appears to be disrupted inferior to the tenodesis site, with tendon retraction (axial PD series 3 images 16-32). Glenohumeral joint: Effusion/cyst: No significant glenohumeral joint effusion. Articular cartilage: Humeral head: Mild thinning of the articular cartilage is present throughout the medial aspect of the humeral head with mild inferomedial marginal osteophytosis. Glenoid: Mild thinning of the glenoid articular cartilage, with mild/moderate anterior and mild posterior marginal osteophytosis. Loose bodies: No discrete intra-articular body within the joint. Labrum:?Circumferential degeneration and poorly defined fraying/tearing of the labrum, which is of doubtful clinical significance. Inferior glenohumeral ligament/axillary pouch:?Moderate marked thickening of inferior capsular ligament structures (coronal PD series 5 images 1421). Additionally, there is extensive soft tissue thickening throughout the rotator interval (sagittal PD series 7 images 10-17). IMPRESSION: 1. Status post biceps tenodesis and/or superior distal subscapularis repair: -Moderate subscapularis tendinopathy without well-defined residual or recurrent tendon tear. -Full-thickness avulsion/disruption of the biceps long head tendon from the suspected tenodesis site, with significant tendon retraction. 2. Moderate supraspinatus & infraspinatus tendinopathy, without tear. 3. Findings in keeping with adhesive capsulitis. 4. Status post subacromial decompression surgery, with good result. No subacromial-subdeltoid bursitis. 5. Mild osteoarthritis of the glenohumeral joint. 6. Circumferential degeneration and tearing of the labrum, which is of doubtful clinical significance. BC Electronically signed on 12/19/2022 7:33:00 AM by Abhay Chung M.D.
== END 2022-12-18 13:27 | disposition home or self-care (01) ==
LOC: MRI 13:26
PROVIDERS: PCP Family Medicine; Visit Provider Orthopaedic Surgery Sports Medicine
DX: M25.511 Pain in right shoulder (principal); M75.01 Adhesive capsulitis of right shoulder; M19.011 Primary osteoarthritis, right shoulder; M75.101 Unspecified rotator cuff tear or rupture of right shoulder, not specified as traumatic; S46.211A Strain of muscle, fascia and tendon of other parts of biceps, right arm, initial encounter; S43.491A Other sprain of right shoulder joint, initial encounter
CPT/HCPCS: 73221

== ENCOUNTER 2023-01-07 10:26 | Outpatient (CLI) | payer MEDICAID, SELFPAY | END 2023-01-07 10:27 | disposition home or self-care (01) | PROVIDERS: PCP Family Medicine; Visit Provider Family Medicine | DX: Z01.818 Encounter for other preprocedural examination (principal) | CPT/HCPCS: 80048; 85025 ==

== ENCOUNTER 2023-01-13 09:23 | Day surgery (SDC) | payer MEDICARE, SELFPAY ==
[2023-01-13] VITALS (16 sets, daily range): BP systolic 96–160; BP diastolic 54–68; PULSE 69–83; RESP 12–18; TEMP 36.2–36.6; O2SAT 91–98; BMI 28.2
--- NOTE | 2023-01-13 09:49 | W.PM.H&PU ---
History & Physical Update History & Physical Update H&P Reviewed and patient assessed: No changes noted
[2023-01-13] MEDS: SODIUM CHLORIDE 0.9 % (FLUSH) 10 ML SYRINGE IVF (10:00)
[2023-01-13] MEDS: LACTATED RINGERS 1000 ML 1,000 ML 100 ML IV ×2 (10:00→13:30)
[2023-01-13] MEDS: MIDAZOLAM HCL 1 MG/ML inj IVP (11:00)
[2023-01-13] MEDS: fentaNYL 100 MCG/2 ML inj IVP (11:00)
--- NOTE | 2023-01-13 11:11 | SUR.PREOP ---
TIME?OUT:?1100 PT/Kalli DEAN RN/Marisol CUELLO MDA?VERIFICATION?OF?SURGICAL?SITE,?PROCEDURE,?AND?CONSENT OBTAINED?PRIOR?TO?INVASIVE?PROCEDURE.
[2023-01-13] MEDS: EPINEPHrine 1 MG in SODIUM CHLORIDE IRRIG SOLUTION 3,000 ML 9003 MG IRRIGATION ×2 (11:44→12:00)
--- NOTE | 2023-01-13 13:06 | W.ANESCHARGE ---
Anesthesia Charges Start Date/Time Anesthesia Start Date: 01/13/23 Anesthesia Start Time: 11:11 Stop Date/Time Anesthesia Stop Date: 01/13/23 Anesthesia Stop Time: 13:46
--- NOTE | 2023-01-13 13:08 | P.NB_ITS ---
Nerve Block Nerve Block Time Seen by Provider: :08 Date Seen: 01/13/23 Type of block requested by surgeon for post-operative analgesia: supraclavicular Side: right Time out performed: Yes Verification of patient name: Yes Verification of date of : Yes Site marking: site marked Name of person performing procedure: Jose Francisco Continuous monitoring Was continuous monitoring of O2 sat, B/P, cold strip feeder, recorded every 15 minutes?: Yes Procedure Checklist: sterile prep, needles and gloves Ultrasound guided. Images saved: Yes Medications given in 5ml increments after negative aspiration: Ropivicaine %: 0.5 mL: 20 Needle gauge: 22 Decadron (mg): 10 Precedex (mcg): 25 Patient tolerated procedure well: Yes Block Charges Block Charge (with Pro Fee): Brachial Plexus Use of Ultrasound Machine for Block: Yes- US Guidance/pain block
--- NOTE | 2023-01-13 13:20 | PM.ORPRC ---
Procedure Note Date of procedure: 01/13/23 Procedure: PREOPERATIVE DIAGNOSES: 1. Right shoulder long head biceps tendon rupture with Judd deformity, pain, cramping, and dysfunction. POSTOPERATIVE DIAGNOSES: 1. Right shoulder rotator cuff tear - upper border subscapularis with left off from the lesser tuberosity 2. Right shoulder long head of biceps tendon longitudinal split with Judd deformity and retraction of part of the tendon. 3. Right shoulder biceps tendon stump remnants with anterior and superior labral 4. Right shoulder retained foreign body (FiberTape suture from prior subscapularis repair) NAME OF OPERATION: 1. Right shoulder arthroscopic rotator cuff repair - upper border subscapularis 2. Right shoulder open subpectoral biceps tenodesis 3. Right shoulder arthroscopic limited glenohumeral debridement 4. Right shoulder arthroscopic removal of foreign body (FiberTape suture from prior subscapularis repair) SURGEON: Dago Rojo MD SPECIALIZED DEVELOPER: Salvatore Cortez. Of note, a skilled assistant men's lacrosse coach was critical for this case to aide in patient positioning, suture manipulation, arm positioning, instrument positioning, and closure. ANESTHESIA: General plus preoperative supraclavicular block. EBL: 25 mL IMPLANTS: Arthrex 4.75 mm BioComposite SwiveLock suture anchor (x1) ; Arthrex 4.75 mm PEEK SwiveLock suture anchor (x1) COMPLICATIONS: None evident INDICATIONS: The patient is a pleasant, 57-year-old male who has experienced right shoulder pain that has been increasing in recent time. Physical exam and imaging were consistent with a rotator cuff tear. Given their findings, as well as the weakness and pain, and inadequate response to nonoperative management, recommendation was made for surgery. FINDINGS: Exam under anesthesia revealed stable shoulder with excellent range of motion. The diagnostic arthroscopy revealed relatively healthy articular cartilage of the glenohumeral joint. The Subscapularis tendon was torn with mild retraction from the less tuberosity. The previous FiberTape suture utilized for repair was found to be torn from the anchor attachment and floating freely for approximately 2 cm. The anchor remained within the humeral head. The long head of the biceps tendon was torn in a high-grade partial-thickness manner with longitudinal splitting the length of the tendon down to the musculotendinous junction. There was a large stump remaining on the superior glenoid tubercle and some tearing of the anterior and superior labrum accordingly. The superior rotator cuff tendon was found to be relatively healthy. No loose bodies were identified within the pouch or subscapularis recess. PROCEDURE: Following a thorough discussion of risks, benefits, and alternatives, consent was obtained and the right shoulder was marked. The patient was brought to the operating room and placed supine on the operating table. Induction of anesthesia was completed after preoperative supraclavicular block was administered in preop holding. Appropriate time out was performed identifying proper patient, site, and procedure. 2 g IV Ancef was administered within 1 hour of incision preoperatively. The right upper extremity was prepped and draped in the appropriate sterile fashion using ChloraPrep prep. This was after the patient was positioned in the beach chair with their head in neutral alignment and all bony prominences well padded. The shoulder was insufflated with 20mL of normal saline via an 18g spinal needle from a posterior approach. An 11 blade skin incision allowed a blunt trochar to be inserted and diagnostic arthroscopy to be performed with the findings as noted above. An anterior portal was established with an outside in technique. This allowed the probe to be inserted and confirm the diagnostic arthroscopic findings. The shaver was then inserted and allowed debridement of the anterior and superior labrum as well as the biceps tendon stump. The free FiberTape suture from the previous repair was grasped, retrieved out the anterior portal, and cut at the previous anchor base. This foreign body was removed completely. At this stage, the long head of the biceps tendon was completely released and resected down to the bicipital groove region. As lesser tuberosity was bare from the upper subscapularis tearing, it was repaired after debriding the lesser tuberosity with the shaver. Subscapularis was captured in horizontal mattress fashion with a fiber tape suture. The tails were brought to a single anchor in the lesser tuberosity with excellent reapproximation of the subscap tendon and good excursion/tension.] We then turned our attention to the open subpectoral biceps tenodesis. A longitudinal incision was made starting from the axillary crease and progressing more cephalad. Approximately a 2 cm incision. Sharp incision through skin and blunt dissection through subcutaneous tissue allowed us to identify the pectoralis major border. The pect major was elevated cephalad and the humerus was identified. The long head of the biceps tendon was also identified found to be very thin and frail. We were able to release this out into the wound. It was found to be very thin of approximately 2 mm. The tendon was relatively long as it still had gone into the shoulder. We tracked it down distal to the musculotendinous junction of the biceps. Given the thin nature, we doubled the tendon back on itself and whipstitched all this tendon to now make it a 4.5 mm tendon. The bicipital groove was palpated and a guide pin placed high in the groove. It was then reamed with a 4.5 mm Reamer. The hole was tapped, and a some 0.75 mm peek SwiveLock suture anchor was utilized after dunking the tendon into the tunnel/hole. Excellent security the biceps tendon was achieved and sabianism of the biceps contour noted. The shoulder was placed through range of motion and found to be stable. The rotator cuff was re-probed and found to be stable. Instruments were removed. Excess fluid was drained, closure performed with 4-0 Monocryl and Steri-Strips. Dressings were applied. Sling was applied. The patient was awoken from anesthesia and transferred to the PACU in stable condition. A skilled assistant men's lacrosse coach was critical for this case to aid in patient positioning, limb positioning, skill to manipulate arthroscopic instruments and camera, suture management, patient safety, and closure. PLAN: 1. Elbow, forearm, wrist and digit range of motion as tolerated. 2. Encouraged ice. 3. Oxycodone for pain as needed. 4. Sling at all times except for ROM and showering. 5. Follow up with PA visit in 1-2 weeks for wound check. Initiate physical therapy following that visit for passive range of motion. Initiate active assisted range of motion at 4 weeks. May do pendulums now.
--- NOTE | 2023-01-13 13:51 | W.ANESCHARGE ---
Anesthesia Charges Start Date/Time Anesthesia Start Date: 01/13/23 Anesthesia Start Time: 11:11 Stop Date/Time Anesthesia Stop Date: 01/13/23 Anesthesia Stop Time: 13:46
[2023-01-13] MEDS: IBUPROFEN 200 MG TABLET 400 MG PO (15:26)
--- NOTE | 2023-01-13 15:35 | SUR.PHASEII ---
Pt was given DC instructions & education. Pt stated understanding but was not following instructions regarding moving shoulder/arm. Pt was trying to lay on, swing & grab for things with the operative arm - educated further regarding not to be using his arm & due to the nerve block being in place. Pt again stated he understood but was not able to follow directions.
== END 2023-01-13 15:45 | disposition home or self-care (01) ==
PROVIDERS: PCP Family Medicine; Visit Provider Orthopaedic Surgery Sports Medicine
PROC: (CPT 29805; principal; 2023-01-13 12:00)
DX: M75.101 Unspecified rotator cuff tear or rupture of right shoulder, not specified as traumatic (principal); M66.821 Spontaneous rupture of other tendons, right upper arm; G89.18 Other acute postprocedural pain
CPT/HCPCS: 29827; 29822; 23430; 01630; 64415; 76942; A9270; C1713; J0171; J0330; J1100; J2250; J2371; J2405; J2704; J2795; J3010; J3490; J7120; L3670

== ENCOUNTER 2023-02-04 12:07 | Outpatient (RCR) | payer MEDICARE, SELFPAY | END 2023-06-04 23:59 | disposition home or self-care (01) | PROVIDERS: PCP Family Medicine; Visit Provider Physician Assistant Surgical | DX: Z98.890 Other specified postprocedural states (principal); M25.511 Pain in right shoulder; M25.619 Stiffness of unspecified shoulder, not elsewhere classified; M62.81 Muscle weakness (generalized); Z51.89 Encounter for other specified aftercare | CPT/HCPCS: 97110; 97161; 97535 ==

== ENCOUNTER 2023-03-11 17:24 | Outpatient (CLI) | payer MEDICARE, SELFPAY | END 2023-03-11 17:25 | disposition home or self-care (01) | LOC: AMB 03-14 08:54 | PROVIDERS: PCP Family Medicine; Visit Provider Student in an Organized Health Care Education/Training Program | DX: R41.82 Altered mental status, unspecified (principal) | CPT/HCPCS: A0425; A0427 ==

== ENCOUNTER 2023-03-11 18:01 | Inpatient (IN) | payer MEDICARE, SELFPAY ==
[2023-03-11] VITALS (53 sets, daily range): BP systolic 45–169; BP diastolic 33–127; PULSE 68–86; RESP 10–18; TEMP 36.2; O2SAT 88–98; BMI 28.0
--- NOTE | 2023-03-11 18:09 | CRLHL7_ITS ---
For Patients: As a result of the Century Cures Act, medical imaging exams and procedure reports are released immediately into your electronic medical record. You may view this report before your referring provider. If you have questions, please contact your health care provider. CLINICAL HISTORY: Trauma. TECHNIQUE: Helical CT acquisition of the cervical spine was performed. Coronal and sagittal reformations were performed and interpreted. COMPARISON: None available. FINDINGS: Prior C4-C6 ACDF. The surgical hardware is intact. There is no evidence of acute displaced fracture or traumatic malalignment of the cervical spine. The facets are well aligned. Vertebral body heights are maintained without evidence of significant compression deformity. No evidence of significant trauma at the craniocervical junction. Cervical spondylosis. Uncovertebral hypertrophy and facet arthropathy contribute to varying degrees of multilevel foraminal narrowing. No evidence of severe spinal canal stenosis. The visualized prevertebral soft tissues are unremarkable. The visualized lung apices are unremarkable. IMPRESSION: No acute displaced fracture or traumatic malalignment of the cervical spine. Please note that all CT scans at this facility use dose modulation, iterative reconstruction, and/or weight-based dosing when appropriate to reduce radiation dose to as low as reasonably achievable. Dictated by Murali Campbell MD @ 03/11/2023 9:42:11 PM (Electronically Signed)
--- NOTE | 2023-03-11 18:09 | CRLHL7_ITS ---
For Patients: As a result of the Century Cures Act, medical imaging exams and procedure reports are released immediately into your electronic medical record. You may view this report before your referring provider. If you have questions, please contact your health care provider. CLINICAL HISTORY: Trauma. TECHNIQUE: Standard helical CT image acquisition of the brain was performed. COMPARISON: None available. FINDINGS: There is no intracranial hemorrhage, extra-axial collection, mass effect, or midline shift. Wetzel-white matter differentiation is preserved. The ventricles are normal in size and morphology. No displaced calvarial fracture. The orbits are unremarkable. The paranasal sinuses are unremarkable. The mastoid air cells are unremarkable. IMPRESSION: No CT evidence of acute intracranial abnormality or closed-head injury. Please note that all CT scans at this facility use dose modulation, iterative reconstruction, and/or weight-based dosing when appropriate to reduce radiation dose to as low as reasonably achievable. Dictated by Murali Campbell MD @ 03/11/2023 9:36:38 PM (Electronically Signed)
--- NOTE | 2023-03-11 18:09 | CRLHL7_ITS ---
For Patients: As a result of the Cures Act, medical imaging exams and procedure reports are released immediately into your electronic medical record. You may view this report before your referring provider. If you have questions, please contact your health care provider. INDICATION: Falls. Pain. TECHNIQUE: CT chest, abdomen and pelvis without contrast. Multiplanar reformats are included. COMPARISON: Chest/abdomen/pelvis CT from 08/03/2019. FINDINGS: Chest: Imaged lower neck/chest wall: Right-sided MediPort terminates at the cavoatrial junction. No soft tissue findings. Mediastinum: Within normal limits. Lungs/pleura: Bibasilar atelectasis/scarring. Calcified granuloma left lung base. Abdomen/pelvis: Liver: Normal in size and attenuation. No suspicious masses. Gallbladder and bile ducts: No stones or inflammation. No biliary dilatation. Pancreas: Unremarkable. No mass or inflammation. Spleen: Normal in size. No masses. Adrenal glands: Normal in size. No nodules. Kidneys: Normal in size. No suspicious masses, stones, or hydronephrosis. GI tract: Large amount of stool throughout the colon. Diverticulosis. Normal appendix. Vasculature: Unremarkable. Lymph nodes: No lymphadenopathy. Abdominal wall/Omentum/Peritoneum: Unremarkable. No sign of mass or infiltration. No free air or significant free fluid. Fat containing umbilical hernia. Pelvis: Unremarkable. No pelvic masses. Bones: L4 thru S1 interbody/dorsal lateral fusion. Advanced disc degeneration at L2-3 and L3-4. Mild to moderate disc degeneration elsewhere. No acute fractures or other acute osseous abnormalities. IMPRESSION: 1. No acute process involving the chest, abdomen or pelvis. Please note that all CT scans at this facility use dose modulation, iterative reconstruction, and/or weight-based dosing when appropriate to reduce radiation dose to as low as reasonably achievable. Dictated by Papo Alberto MD @ 03/11/2023 9:28:07 PM (Electronically Signed)
--- NOTE | 2023-03-11 18:47 | CRLHL7_ITS ---
For Patients: As a result of the Cures Act, medical imaging exams and procedure reports are released immediately into your electronic medical record. You may view this report before your referring provider. If you have questions, please contact your health care provider. Indication: Shortness of breath. Technique: Frontal chest radiograph. Comparison: Chest CT from 08/03/2019. Findings: Interval placement of a right-sided central venous catheter with tip terminating in the inferior SVC region. No consolidation, effusion or pneumothorax. Mild pulmonary vascular congestion. Impression: 1. Interval placement of a right-sided central venous catheter with tip terminating in the region of the inferior SVC. No complications. Mild pulmonary vascular congestion. Dictated by Papo Alberto MD @ 03/11/2023 8:18:41 PM (Electronically Signed)
[2023-03-11 19:19] LABS: Lactate Sepsis w/Reflex* 1.7 mmol/L (0.5-1.9)
[2023-03-11 19:21] LABS: Creatinine, Point-of-Care* 6.7 mg/dl (0.6-1.3)
[2023-03-11 19:24] LABS: Basophils Absolute Auto 0.03 K/uL (0.00-0.30); Basophils Percent Auto 0.3 % (0.0-3.0); Eosinophils Absolute Auto 0.05 K/uL (0.00-0.50); Eosinophils Percent Auto 0.5 % (0.0-7.0); Hematocrit 51.9 % (37.0-53.0); Hemoglobin* 17.4 gm/dL (13.5-17.5); Immature Granulocytes Abs Auto 0.02 K/uL (0.00-0.30); Immature Granulocytes Pct Auto 0.2 %; Lymphocytes Percent Auto 8.1 % (20-44); Mean Corpuscular HGB Conc 34 gm/dL (32-36); Mean Corpuscular Hemoglobin 32 pg (26-34); Mean Corpuscular Volume 94 fL (80-100); Monocytes Percent Auto 10.6 % (0.0-11.0); Neutrophils Percent Auto 80.3 % (42.0-72.0); Platelet Count* 146 K/uL (140-440); RDW Coefficient of Variation % 13.8 % (11.5-15.5); White Blood Count* 10.69 K/uL (4.50-11.00)
[2023-03-11 19:25] LABS: Slide Review Reflex No
[2023-03-11 19:36] LABS: Albumin* 3.9 g/dL (3.3-5.0); Chloride* 95 mmol/L (96-114)
[2023-03-11 19:37] LABS: Potassium* 3.1 mmol/L (3.6-5.1); Sodium* 135 mmol/L (135-149)
[2023-03-11 19:39] LABS: Aspartate Amino Transferase* 34 U/L (12-35); Bilirubin Total* 1.5 mg/dL (0.1-1.5); Carbon Dioxide* 29 mmol/L (20-32); Creatinine* 5.7 mg/dL (0.5-1.5); Est. Creatinine Clearance* 16.16; Estimated Glomerular Filt Rate 11 ml/min
[2023-03-11 19:40] LABS: Alanine Aminotransferase* 24 U/L (4-50); Alkaline Phosphatase* 49 U/L (40-150); Blood Urea Nitrogen* 50 mg/dL (7-30); Calcium* 8.4 mg/dL (8.4-10.6); Glucose* 105 mg/dL (60-115); Magnesium* 2.2 mg/dL (1.5-2.6); Total Protein* 6.6 g/dL (6.0-8.3)
[2023-03-11 19:41] LABS: D Dimer Quantitative* 0.38 ug/ml (0.00-0.50)
[2023-03-11 19:46] LABS: Anion Gap 11 mEq/L (7-15); Ethanol* < 0.01 % (0.01-0.03)
[2023-03-11 19:55] LABS: NT Pro B Type NatriureticPept* 3500 pg/mL; Troponin I* 0.26 ng/mL (0.01-0.04)
[2023-03-11 20:00] LABS: PCR FLU A Negative PCR FLU A (Negative); PCR FLU B Negative PCR FLU B (Negative); PCR RSV Negative PCR RSV (Negative)
[2023-03-11 20:14] LABS: SARS PCR* Negative SARS-CoV-2 (Negative)
[2023-03-11 21:39] LABS: Appearance Urine Cloudy (Clear); Bilirubin Urine 2+ (Negative); Blood Urine Trace-intact (Negative); Color Urine Brown (Yellow); Glucose Urine Negative (Negative); Ketones Urine Trace (Negative); Leukocyte Esterase Urine Negative (Negative); Nitrite Urine Negative (Negative); Protein Urine 2+ (Negative); Specific Gravity Urine >= 1.030 (1.000-1.030); pH Urine 5.5 (5.0-8.5)
[2023-03-11 21:49] LABS: Amorphous Sediment Urine Moderate; Bacteria Urine Few; Mucus Urine Few; Squamous Epithelial Cell Urine Few (None-Few)
[2023-03-11 21:52] LABS: Amphetamine Screen Urine POSITIVE (Negative); Barbiturate Screen Urine Negative (Negative); Benzodiazepines Screen Urine POSITIVE (Negative); Cannabinoid Screen Urine POSITIVE (Negative); Cocaine Screen Urine Negative (Negative); Methadone Screen Urine Negative (Negative); Methamphetamines Screen Urine POSITIVE (Negative); Opiate Screen Urine Negative (Negative); Oxycodone Screen Urine Negative (Negative); Phencyclidine Screen Urine Negative (Negative); Tricyclic Antidepressant Urine POSITIVE (Negative)
--- NOTE | 2023-03-11 22:00 | ED_ITS ---
HPI - General Adult General Date Seen: 03/11/23 <Salvatore Jorge DO - Last Filed: 03/13/23 13:54> Chief complaint: Weakness <Salvatore Jorge - Last Filed: 03/13/23 13:54> Stated complaint: weak <Salvatore Jorge DO - Last Filed: 03/13/23 13:54> Time Seen by Provider: 03/11/23 18:11 <Salvatore Jorge - Last Filed: 03/13/23 13:54> Source: patient <Salvatore Jorge DO - Last Filed: 03/13/23 13:54> Mode of arrival: ambulatory <Salvatore Jorge DO - Last Filed: 03/13/23 13:54> Limitations: no limitations <Salvatore Jorge DO - Last Filed: 03/13/23 13:54> History of Present Illness HPI narrative: Patient is a so 57-year-old male presenting to the emergency department for multiple issues. EMS was rigidly called because he has been having regular falls now and states he has his head a few times. Family called EMS. Patient states he is feeling well but [facility] says he was hypotensive and short of breath. He was requiring 5 L via nasal cannula to keep saturation above 90%. Patient does not know why he has been falling but states has been going on for a few weeks. Does admit to hitting his head several times and is complaining about hip pain. For denies fevers, chills, chest pain, weakness, numbness, vision changes. Patient trying to Ellie he feels completely fine at this time and thinks he can go home. He does have chronically torn biceps tendons. He is a chronic alcoholic but states he has and drink for 2 days <Salvatore Jorge - Last Filed: 03/13/23 13:54> Related Data Home medications: Home Medications Medication Instructions Recorded Confirmed calcium 600 mg-D3 20 mcg-magnesium tab PO 11/16/22 02/26/23 40 [id number] chew tablet multivitamin (Daily Multi-Vitamin 1 tab PO QDAY 11/16/22 03/11/23 tablet) loperamide 2 mg tablet (Imodium 2 mg PO Q6H PRN 12/15/22 03/11/23 A-D) propranolol 10 mg tablet 10 mg PO BID 03/11/23 03/11/23 trazodone 100 mg tablet 100 mg PO QHS 03/11/23 03/11/23 Previous Rx's Medication Instructions Recorded tamsulosin 0.4 mg capsule (Flomax) 0.4 mg PO QDAY #90 caps 06/19/22 diclofenac sodium 75 mg 75 mg PO BID #180 tabs 07/09/22 tablet,delayed release ropinirole 2 mg tablet 2 mg PO BID #180 tabs 09/11/22 lisinopril 40 mg tablet 40 mg PO BID #180 tabs 10/16/22 quetiapine 400 mg tablet (Seroquel) 600 mg (1.5 x 400 mg) PO QHS #45 10/16/22 tabs metoprolol succinate 100 mg 100 mg PO QDAY #90 ea 10/21/22 capsule sprinkle, ext. release 24 hr atorvastatin 20 mg tablet 20 mg PO QDAY #90 tabs 11/02/22 omeprazole 20 mg capsule,delayed 20 mg PO QDAY #90 caps 11/11/22 release cyclobenzaprine 10 mg tablet 10 mg PO QHS #90 tabs 11/16/22 desonide 0.05 % topical cream 1 applic topical BID #60 grams 11/16/22 valacyclovir 1 gram tablet 1,000 mg PO QDAY #90 tabs 12/14/22 testosterone cypionate 200 mg/mL 200 mg IM Q2W #6 mL 01/06/23 intramuscular oil (Depo-Testosterone) prazosin 2 mg capsule 2 mg PO QPM #90 caps 01/07/23 gabapentin 600 mg tablet 600 mg PO TID #270 tabs 02/18/23 folic acid 1 mg tablet 1 mg PO DAILY #30 tabs 03/14/23 multivitamin 1 tab PO DAILY #30 tabs 03/14/23 thiamine mononitrate (vit B1) 100 100 mg PO Q24H #30 tabs 03/14/23 mg tablet (Vitamin B-1 (mononitrate)) <Salvatore Jorge, DO - Last Filed: 03/13/23 13:54> Allergies/adverse reactions: Allergies Allergy/AdvReac Type Severity Reaction Status Date / Time valproic acid AdvReac Intermediate excessive Verified 02/26/23 10:38 sedation naltrexone AdvReac Unknown Verified 02/26/23 10:38 <Salvatore Jorge DO - Last Filed: 03/13/23 13:54> Review of Systems Status of ROS: Reports: 10 or more systems reviewed and unremarkable except as noted in History and below <Salvatore Jorge DO - Last Filed: 03/13/23 13:54> [facility] Medical History: Medical History (Updated 03/14/23 @ 14:16 by Davina Rodriguez MD) Rupture of right biceps tendon ?S46.211A - Strain of muscle, fascia and tendon of other parts of biceps, right arm, initial encounter (ICD-10) 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) ?F15.21 - Other stimulant dependence, in remission (ICD-10) Allergic rhinitis ?J30.9 - Allergic rhinitis, unspecified (ICD-10) Seborrheic dermatitis ?L21.9 - Seborrheic dermatitis, unspecified (ICD-10) Chronic pain of both shoulders ?M25.511 - Pain in right shoulder (ICD-10) ?M25.512 - Pain in left shoulder (ICD-10) ?G89.29 - Other chronic pain (ICD-10) BPH (benign prostatic hyperplasia) ?N40.0 - Benign prostatic hyperplasia without lower urinary tract symptoms (ICD-10) Spondylosis of cervical spine with radiculopathy (09/06/19) ?M47.22 - Other spondylosis with radiculopathy, cervical region (ICD-10) Severe alcohol dependence in early remission (09/25/15) ?F10.21 - Alcohol dependence, in remission (ICD-10) Restless legs syndrome ?G25.81 - Restless legs syndrome (ICD-10) Posttraumatic stress disorder ?F43.10 - Post-traumatic stress disorder, unspecified (ICD-10) Photokeratitis of both eyes (07/31/18) ?H16.133 - Photokeratitis, bilateral (ICD-10) Insomnia ?G47.00 - Insomnia, unspecified (ICD-10) Hypogonadism in male ?E29.1 - Testicular hypofunction (ICD-10) Hypertension ?I10 - Essential (primary) hypertension (ICD-10) Hyperlipidemia ?E78.5 - Hyperlipidemia, unspecified (ICD-10) History of traumatic rupture of spleen ?Z87.828 - Personal history of other (healed) physical injury and trauma (ICD-10) History of psychoactive substance use disorder ?Z87.898 - Personal history of other specified conditions (ICD-10) History of migraine ?Z86.69 - Personal history of other diseases of the nervous system and sense organs (ICD-10) History of gastroesophageal reflux (GERD) ?Z87.19 - Personal history of other diseases of the digestive system (ICD-10) History of alcohol dependence ?F10.21 - Alcohol dependence, in remission (ICD-10) Genital herpes simplex ?A60.00 - Herpesviral infection of urogenital system, unspecified (ICD-10) Gastroesophageal reflux disease (05/16/01) ?K21.9 - Gastro-esophageal reflux disease without esophagitis (ICD-10) Erectile dysfunction ?N52.9 - Male erectile dysfunction, unspecified (ICD-10) 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 - Nightmare disorder (ICD-10) <Salvatore Jorge DO - Last Filed: 03/13/23 13:54> Surgical History: Surgical History History of arthroscopy of right shoulder (01/13/23) ?Z98.890 - Other specified postprocedural states (ICD-10) S/P arthroscopy of right shoulder (02/11/22) ?Z98.890 - Other specified postprocedural states (ICD-10) History of spinal surgery (1999) ?Z98.890 - Other specified postprocedural states (ICD-10) Status post right rotator cuff repair ?Z98.890 - Other specified postprocedural states (ICD-10) History of surgery on arm ?Z98.890 - Other specified postprocedural states (ICD-10) H/O left wrist surgery ?Z98.890 - Other specified postprocedural states (ICD-10) History of fusion of lumbar spine ?Z98.1 - Arthrodesis status (ICD-10) History of cervical spinal arthrodesis (2019) ?Z98.1 - Arthrodesis status (ICD-10) History of bunionectomy of right great toe (10/27/04) ?Z98.890 - Other specified postprocedural states (ICD-10) <Salvatore Jorge DO - Last Filed: 03/13/23 13:54> Social History: Social History (Updated 03/12/23 @ 13:29 by Martha Red MD) Narrative: Lives with mother (Kathy Alvarado - medical decision maker if needed). Single, 2 kids, one son committed suicide, non-smoker, ETOH overuse (24 beers in one sitting most days of the week). Requesting Full Code status. What is your current living situation?: unable to answer Problems where you live: unable to answer Problems where you live details: N/A In the past 12 months, utilities in danger of being shut off: unable to answer In past 12 months, lack of transportation kept you from medical appts, meetings, work, or getting things needed for daily living: unable to answer In the past 12 mos, have been you worried that your food would run out before you had money to buy more?: unable to answer In the past 12 mos, the food you bought just didn't last and you didn't have money to buy more?: unable to answer Highest level of school completed/degree received: don't know Smoking Status: Former smoker How often do you have a drink containing alcohol: 4 or more times a week Alcohol type: beer How many standard drinks containing alcohol do you have on a typical day: 10 or more How often do you have six or more drinks on one occasion: Daily or almost daily AUDIT-C Alcohol total score: 12 Non-prescribed substance use: marijuana (any form) and amphetamines/methamphetamines Caffeine: Yes How often does anyone, including family, friends and others, physically hurt you : unable to answer How often does anyone, including family, friends and others, insult or talk down to you: unable to answer How often does anyone, including family, friends and others, threaten you with harm: unable to answer How often does anyone, including family, friends and others, scream or curse at you: unable to answer Little interest or pleasure in doing things: several days Feeling down, depressed, or hopeless: several days <Salvatore Jorge DO - Last Filed: 03/13/23 13:54> Exam Narrative: Exam Narrative: Const: Well-nourished, Well-developed, in moderate distress, mildly diaphoretic Eyes: PERRL, no conjunctival injection, and symmetrical lids HENT: Atraumatic external nose and ears. Moist mucous membranes. Neck: Symmetric, trachea midline, No thyromegaly. CVS: RRR, No murmurs or gallops. Peripheral pulses 2+ and equal in all extremities RESP: Unlabored respiratory effort. Clear to auscultation bilaterally. GI: Nontender/Nondistended, No rebound or guarding. MSK:Extremities w/o deformity, Normal Active ROM, right biceps tendon rupture Skin: Warm, Dry. No rashes or lesions. Neuro: Normal Muscle tone, No focal neurological deficits. Psych: Awake, Alert, & Oriented x3. Appropriate mood and affect. <Salvatore Jorge, DO - Last Filed: 03/13/23 13:54> Const: Vital Signs, click to edit/add: Vital Signs - 24 hr 03/11/23 18:58 03/11/23 19:17 03/11/23 19:18 Temperature 97.2 F L Pulse Rate 73 72 Pulse Rate [Right Pulse Oximeter] 74 Respiratory Rate 10 L Blood Pressure 77/46 L Blood Pressure [Le ft Arm] Blood Pressure [Le ft Upper Arm] 75/33 L Pulse Oximetry 88 96 96 Oxygen Delivery Me thod OxyMask Oxygen Flow Rate 2 2 03/11/23 19:21 03/11/23 19:23 03/11/23 19:24 Temperature 97.2 F L Pulse Rate 73 73 Pulse Rate [Right Pulse Oximeter] 68 Respiratory Rate 10 L Blood Pressure 68/46 L 71/49 L Blood Pressure [Le ft Arm] Blood Pressure [Le ft Upper Arm] 66/47 L Pulse Oximetry 97 92 98 Oxygen Delivery Me thod OxyMask Oxygen Flow Rate 2 2 03/11/23 19:29 03/11/23 19:30 03/11/23 19:31 Temperature Pulse Rate 74 75 72 Pulse Rate [Right Pulse Oximeter] Respiratory Rate Blood Pressure 78/48 L 91/47 L Blood Pressure [Le ft Arm] Blood Pressure [Le ft Upper Arm] Pulse Oximetry 96 97 95 Oxygen Delivery Me thod Oxygen Flow Rate 0 03/11/23 19:38 03/11/23 19:55 03/11/23 19:57 Temperature Pulse Rate 75 78 76 Pulse Rate [Right Pulse Oximeter] Respiratory Rate Blood Pressure 98/41 L 83/45 L Blood Pressure [Le ft Arm] Blood Pressure [Le ft Upper Arm] Pulse Oximetry 95 94 96 Oxygen Delivery Me thod Oxygen Flow Rate 03/11/23 20:00 03/11/23 20:02 03/11/23 20:14 Temperature Pulse Rate 77 74 77 Pulse Rate [Right Pulse Oximeter] Respiratory Rate Blood Pressure 84/63 L Blood Pressure [Le ft Arm] Blood Pressure [Le ft Upper Arm] Pulse Oximetry 96 97 97 Oxygen Delivery Me thod Oxygen Flow Rate 03/11/23 20:15 03/11/23 20:19 03/11/23 20:21 Temperature Pulse Rate 79 76 76 Pulse Rate [Right Pulse Oximeter] Respiratory Rate Blood Pressure 81/47 L 89/52 L Blood Pressure [Le ft Arm] Blood Pressure [Le ft Upper Arm] Pulse Oximetry 97 93 95 Oxygen Delivery Me thod Oxygen Flow Rate 03/11/23 20:30 03/11/23 20:31 03/11/23 20:44 Temperature Pulse Rate 77 76 79 Pulse Rate [Right Pulse Oximeter] Respiratory Rate Blood Pressure 95/47 L 65/42 L Blood Pressure [Le ft Arm] Blood Pressure [Le ft Upper Arm] Pulse Oximetry 96 96 95 Oxygen Delivery Me thod Oxygen Flow Rate 03/11/23 20:45 03/11/23 20:47 03/11/23 20:52 Temperature Pulse Rate 80 80 79 Pulse Rate [Right Pulse Oximeter] Respiratory Rate Blood Pressure 95/50 L 94/40 L Blood Pressure [Le ft Arm] Blood Pressure [Le ft Upper Arm] Pulse Oximetry 95 95 96 Oxygen Delivery Me thod Oxygen Flow Rate 03/11/23 21:00 03/11/23 21:01 03/11/23 21:15 Temperature Pulse Rate 80 79 84 Pulse Rate [Right Pulse Oximeter] Respiratory Rate Blood Pressure 45/35 L 169/127 H Blood Pressure [Le ft Arm] Blood Pressure [Le ft Upper Arm] Pulse Oximetry 95 98 97 Oxygen Delivery Me thod Oxygen Flow Rate 03/11/23 21:16 03/11/23 21:24 03/11/23 21:30 Temperature Pulse Rate 84 83 81 Pulse Rate [Right Pulse Oximeter] Respiratory Rate Blood Pressure 125/46 L Blood Pressure [Le ft Arm] Blood Pressure [Le ft Upper Arm] Pulse Oximetry 97 94 95 Oxygen Delivery Me thod Oxygen Flow Rate 03/11/23 21:32 03/11/23 21:42 03/11/23 21:45 Temperature Pulse Rate 81 85 82 Pulse Rate [Right Pulse Oximeter] Respiratory Rate Blood Pressure 99/55 L 98/52 L Blood Pressure [Le ft Arm] Blood Pressure [Le ft Upper Arm] Pulse Oximetry 97 97 94 Oxygen Delivery Me thod Oxygen Flow Rate 03/11/23 21:46 03/11/23 21:52 03/11/23 22:00 Temperature Pulse Rate 81 84 84 Pulse Rate [Right Pulse Oximeter] Respiratory Rate Blood Pressure 88/63 L 107/51 L Blood Pressure [Le ft Arm] Blood Pressure [Le ft Upper Arm] Pulse Oximetry 96 97 97 Oxygen Delivery Me thod Oxygen Flow Rate 03/11/23 22:02 03/11/23 22:11 03/11/23 22:15 Temperature Pulse Rate 84 83 83 Pulse Rate [Right Pulse Oximeter] Respiratory Rate Blood Pressure 87/75 L 92/67 Blood Pressure [Le ft Arm] Blood Pressure [Le ft Upper Arm] Pulse Oximetry 95 97 96 Oxygen Delivery Me thod Oxygen Flow Rate 03/11/23 22:21 03/11/23 22:30 03/11/23 22:31 Temperature Pulse Rate 84 82 84 Pulse Rate [Right Pulse Oximeter] Respiratory Rate Blood Pressure 112/63 108/65 Blood Pressure [Le ft Arm] Blood Pressure [Le ft Upper Arm] Pulse Oximetry 97 98 97 Oxygen Delivery Me thod Oxygen Flow Rate 03/11/23 22:41 03/11/23 22:45 03/11/23 22:51 Temperature Pulse Rate 84 82 82 Pulse Rate [Right Pulse Oximeter] Respiratory Rate Blood Pressure 97/64 99/56 L Blood Pressure [Le ft Arm] Blood Pressure [Le ft Upper Arm] Pulse Oximetry 97 97 97 Oxygen Delivery Me thod Oxygen Flow Rate 03/11/23 23:00 03/11/23 23:02 03/11/23 23:11 Temperature Pulse Rate 81 81 86 Pulse Rate [Right Pulse Oximeter] Respiratory Rate Blood Pressure 102/58 L 97/60 Blood Pressure [Le ft Arm] Blood Pressure [Le ft Upper Arm] Pulse Oximetry 95 96 95 Oxygen Delivery Me thod Oxygen Flow Rate 03/11/23 23:15 03/11/23 23:22 03/11/23 23:32 Temperature Pulse Rate 83 85 83 Pulse Rate [Right Pulse Oximeter] Respiratory Rate 18 18 Blood Pressure 118/82 108/67 Blood Pressure [Le ft Arm] Blood Pressure [Le ft Upper Arm] Pulse Oximetry 95 98 96 Oxygen Delivery Me thod Oxygen Flow Rate 03/11/23 23:42 03/11/23 23:52 03/12/23 00:11 Temperature Pulse Rate 84 86 85 Pulse Rate [Right Pulse Oximeter] Respiratory Rate 18 18 18 Blood Pressure 98/46 L 99/58 L 103/56 L Blood Pressure [Le ft Arm] Blood Pressure [Le ft Upper Arm] Pulse Oximetry 97 96 96 Oxygen Delivery Me thod Oxygen Flow Rate 03/12/23 01:23 03/12/23 01:35 03/12/23 01:41 Temperature 98.2 F Pulse Rate 87 85 Pulse Rate [Right Pulse Oximeter] Respiratory Rate 18 Blood Pressure 112/58 L 102/63 Blood Pressure [Le ft Arm] Blood Pressure [Le ft Upper Arm] Pulse Oximetry 95 93 Oxygen Delivery Me thod Oxygen Flow Rate 03/12/23 01:51 03/12/23 02:01 03/12/23 02:40 Temperature 98.2 F Pulse Rate 84 84 Pulse Rate [Right Pulse Oximeter] Respiratory Rate 18 Blood Pressure 95/61 88/53 L Blood Pressure [Le ft Arm] 95/67 Blood Pressure [Le ft Upper Arm] Pulse Oximetry 95 94 94 Oxygen Delivery Me thod Room Air OxyMask Oxygen Flow Rate 03/12/23 03:01 03/12/23 03:05 03/12/23 03:31 Temperature 98.2 F 98.0 F Pulse Rate 78 76 Pulse Rate [Right Pulse Oximeter] Respiratory Rate 18 Blood Pressure 92/61 91/59 L Blood Pressure [Le ft Arm] Blood Pressure [Le ft Upper Arm] Pulse Oximetry 94 94 Oxygen Delivery Me thod Oxygen Flow Rate 03/12/23 03:43 03/12/23 04:01 03/12/23 04:31 Temperature 98.0 F Pulse Rate 73 74 Pulse Rate [Right Pulse Oximeter] 75 Respiratory Rate 18 18 16 Blood Pressure 112/61 109/71 Blood Pressure [Le ft Arm] 95/67 Blood Pressure [Le ft Upper Arm] Pulse Oximetry 94 94 96 Oxygen Delivery Me thod Room Air OxyMask Oxygen Flow Rate 0 03/12/23 05:01 03/12/23 06:01 03/12/23 06:32 Temperature Pulse Rate 74 76 80 Pulse Rate [Right Pulse Oximeter] Respiratory Rate 18 18 Blood Pressure 91/60 118/76 103/82 Blood Pressure [Le ft Arm] Blood Pressure [Le ft Upper Arm] Pulse Oximetry 94 95 97 Oxygen Delivery Me thod Oxygen Flow Rate 03/12/23 06:33 03/12/23 07:00 03/12/23 07:01 Temperature Pulse Rate 81 80 82 Pulse Rate [Right Pulse Oximeter] Respiratory Rate Blood Pressure 111/64 105/74 Blood Pressure [Le ft Arm] Blood Pressure [Le ft Upper Arm] Pulse Oximetry 95 95 96 Oxygen Delivery Me thod Oxygen Flow Rate 03/12/23 07:02 03/12/23 07:30 03/12/23 07:31 Temperature Pulse Rate 78 81 80 Pulse Rate [Right Pulse Oximeter] Respiratory Rate Blood Pressure 112/63 Blood Pressure [Le ft Arm] Blood Pressure [Le ft Upper Arm] Pulse Oximetry 98 97 97 Oxygen Delivery Me thod Oxygen Flow Rate 03/12/23 07:32 03/12/23 07:43 03/12/23 08:00 Temperature Pulse Rate 79 81 Pulse Rate [Right Pulse Oximeter] 80 Respiratory Rate 18 Blood Pressure Blood Pressure [Le ft Arm] 112/83 Blood Pressure [Le ft Upper Arm] Pulse Oximetry 97 96 98 Oxygen Delivery Me thod Room Air Oxygen Flow Rate 03/12/23 08:01 03/12/23 08:30 03/12/23 08:33 Temperature Pulse Rate 83 86 86 Pulse Rate [Right Pulse Oximeter] Respiratory Rate Blood Pressure 120/70 134/78 Blood Pressure [Le ft Arm] Blood Pressure [Le ft Upper Arm] Pulse Oximetry 97 97 97 Oxygen Delivery Me thod Oxygen Flow Rate 03/12/23 09:00 03/12/23 09:02 03/12/23 09:03 Temperature Pulse Rate 88 89 89 Pulse Rate [Right Pulse Oximeter] Respiratory Rate Blood Pressure 91/73 Blood Pressure [Le ft Arm] Blood Pressure [Le ft Upper Arm] Pulse Oximetry 95 96 98 Oxygen Delivery Me thod Oxygen Flow Rate 03/12/23 09:30 03/12/23 09:31 03/12/23 09:32 Temperature Pulse Rate 93 89 91 Pulse Rate [Right Pulse Oximeter] Respiratory Rate Blood Pressure 91/66 Blood Pressure [Le ft Arm] Blood Pressure [Le ft Upper Arm] Pulse Oximetry 96 96 96 Oxygen Delivery Me thod Oxygen Flow Rate 03/12/23 10:00 03/12/23 10:02 03/12/23 10:30 Temperature Pulse Rate 83 92 93 Pulse Rate [Right Pulse Oximeter] Respiratory Rate Blood Pressure 122/71 Blood Pressure [Le ft Arm] Blood Pressure [Le ft Upper Arm] Pulse Oximetry 94 94 95 Oxygen Delivery Me thod Oxygen Flow Rate 03/12/23 10:31 03/12/23 11:00 03/12/23 11:01 Temperature Pulse Rate 90 89 88 Pulse Rate [Right Pulse Oximeter] Respiratory Rate Blood Pressure 132/83 130/78 Blood Pressure [Le ft Arm] Blood Pressure [Le ft Upper Arm] Pulse Oximetry 94 94 95 Oxygen Delivery Me thod Oxygen Flow Rate 03/12/23 11:30 03/12/23 11:31 03/12/23 11:32 Temperature Pulse Rate 88 89 89 Pulse Rate [Right Pulse Oximeter] Respiratory Rate Blood Pressure 136/74 Blood Pressure [Le ft Arm] Blood Pressure [Le ft Upper Arm] Pulse Oximetry 92 95 94 Oxygen Delivery Me thod Oxygen Flow Rate 03/12/23 12:05 03/12/23 12:07 03/12/23 12:30 Temperature Pulse Rate 90 92 89 Pulse Rate [Right Pulse Oximeter] Respiratory Rate Blood Pressure 138/84 Blood Pressure [Le ft Arm] Blood Pressure [Le ft Upper Arm] Pulse Oximetry 93 96 94 Oxygen Delivery Me thod Oxygen Flow Rate 03/12/23 12:31 03/12/23 12:32 03/12/23 13:00 Temperature Pulse Rate 91 91 89 Pulse Rate [Right Pulse Oximeter] Respiratory Rate Blood Pressure 145/79 H Blood Pressure [Le ft Arm] Blood Pressure [Le ft Upper Arm] Pulse Oximetry 95 95 93 Oxygen Delivery Me thod Oxygen Flow Rate <Salvatore Jorge, DO - Last Filed: 03/13/23 13:54> Vital Signs, click to edit/add: Vital Signs - 24 hr 03/11/23 18:58 03/11/23 19:17 03/11/23 19:18 Temperature 97.2 F L Pulse Rate 73 72 Pulse Rate [Right Pulse Oximeter] 74 Respiratory Rate 10 L Blood Pressure 77/46 L Blood Pressure [Le ft Arm] Blood Pressure [Le ft Upper Arm] 75/33 L Pulse Oximetry 88 96 96 Oxygen Delivery Me thod OxyMask Oxygen Flow Rate 2 2 03/11/23 19:21 03/11/23 19:23 03/11/23 19:24 Temperature 97.2 F L Pulse Rate 73 73 Pulse Rate [Right Pulse Oximeter] 68 Respiratory Rate 10 L Blood Pressure 68/46 L 71/49 L Blood Pressure [Le ft Arm] Blood Pressure [Le ft Upper Arm] 66/47 L Pulse Oximetry 97 92 98 Oxygen Delivery Me thod OxyMask Oxygen Flow Rate 2 2 03/11/23 19:29 03/11/23 19:30 03/11/23 19:31 Temperature Pulse Rate 74 75 72 Pulse Rate [Right Pulse Oximeter] Respiratory Rate Blood Pressure 78/48 L 91/47 L Blood Pressure [Le ft Arm] Blood Pressure [Le ft Upper Arm] Pulse Oximetry 96 97 95 Oxygen Delivery Me thod Oxygen Flow Rate 0 03/11/23 19:38 03/11/23 19:55 03/11/23 19:57 Temperature Pulse Rate 75 78 76 Pulse Rate [Right Pulse Oximeter] Respiratory Rate Blood Pressure 98/41 L 83/45 L Blood Pressure [Le ft Arm] Blood Pressure [Le ft Upper Arm] Pulse Oximetry 95 94 96 Oxygen Delivery Me thod Oxygen Flow Rate 03/11/23 20:00 03/11/23 20:02 03/11/23 20:14 Temperature Pulse Rate 77 74 77 Pulse Rate [Right Pulse Oximeter] Respiratory Rate Blood Pressure 84/63 L Blood Pressure [Le ft Arm] Blood Pressure [Le ft Upper Arm] Pulse Oximetry 96 97 97 Oxygen Delivery Me thod Oxygen Flow Rate 03/11/23 20:15 03/11/23 20:19 03/11/23 20:21 Temperature Pulse Rate 79 76 76 Pulse Rate [Right Pulse Oximeter] Respiratory Rate Blood Pressure 81/47 L 89/52 L Blood Pressure [Le ft Arm] Blood Pressure [Le ft Upper Arm] Pulse Oximetry 97 93 95 Oxygen Delivery Me thod Oxygen Flow Rate 03/11/23 20:30 03/11/23 20:31 03/11/23 20:44 Temperature Pulse Rate 77 76 79 Pulse Rate [Right Pulse Oximeter] Respiratory Rate Blood Pressure 95/47 L 65/42 L Blood Pressure [Le ft Arm] Blood Pressure [Le ft Upper Arm] Pulse Oximetry 96 96 95 Oxygen Delivery Me thod Oxygen Flow Rate 03/11/23 20:45 03/11/23 20:47 03/11/23 20:52 Temperature Pulse Rate 80 80 79 Pulse Rate [Right Pulse Oximeter] Respiratory Rate Blood Pressure 95/50 L 94/40 L Blood Pressure [Le ft Arm] Blood Pressure [Le ft Upper Arm] Pulse Oximetry 95 95 96 Oxygen Delivery Me thod Oxygen Flow Rate 03/11/23 21:00 03/11/23 21:01 03/11/23 21:15 Temperature Pulse Rate 80 79 84 Pulse Rate [Right Pulse Oximeter] Respiratory Rate Blood Pressure 45/35 L 169/127 H Blood Pressure [Le ft Arm] Blood Pressure [Le ft Upper Arm] Pulse Oximetry 95 98 97 Oxygen Delivery Me thod Oxygen Flow Rate 03/11/23 21:16 03/11/23 21:24 03/11/23 21:30 Temperature Pulse Rate 84 83 81 Pulse Rate [Right Pulse Oximeter] Respiratory Rate Blood Pressure 125/46 L Blood Pressure [Le ft Arm] Blood Pressure [Le ft Upper Arm] Pulse Oximetry 97 94 95 Oxygen Delivery Me thod Oxygen Flow Rate 03/11/23 21:32 03/11/23 21:42 03/11/23 21:45 Temperature Pulse Rate 81 85 82 Pulse Rate [Right Pulse Oximeter] Respiratory Rate Blood Pressure 99/55 L 98/52 L Blood Pressure [Le ft Arm] Blood Pressure [Le ft Upper Arm] Pulse Oximetry 97 97 94 Oxygen Delivery Me thod Oxygen Flow Rate 03/11/23 21:46 03/11/23 21:52 03/11/23 22:00 Temperature Pulse Rate 81 84 84 Pulse Rate [Right Pulse Oximeter] Respiratory Rate Blood Pressure 88/63 L 107/51 L Blood Pressure [Le ft Arm] Blood Pressure [Le ft Upper Arm] Pulse Oximetry 96 97 97 Oxygen Delivery Me thod Oxygen Flow Rate 03/11/23 22:02 03/11/23 22:11 03/11/23 22:15 Temperature Pulse Rate 84 83 83 Pulse Rate [Right Pulse Oximeter] Respiratory Rate Blood Pressure 87/75 L 92/67 Blood Pressure [Le ft Arm] Blood Pressure [Le ft Upper Arm] Pulse Oximetry 95 97 96 Oxygen Delivery Me thod Oxygen Flow Rate 03/11/23 22:21 03/11/23 22:30 03/11/23 22:31 Temperature Pulse Rate 84 82 84 Pulse Rate [Right Pulse Oximeter] Respiratory Rate Blood Pressure 112/63 108/65 Blood Pressure [Le ft Arm] Blood Pressure [Le ft Upper Arm] Pulse Oximetry 97 98 97 Oxygen Delivery Me thod Oxygen Flow Rate 03/11/23 22:41 03/11/23 22:45 03/11/23 22:51 Temperature Pulse Rate 84 82 82 Pulse Rate [Right Pulse Oximeter] Respiratory Rate Blood Pressure 97/64 99/56 L Blood Pressure [Le ft Arm] Blood Pressure [Le ft Upper Arm] Pulse Oximetry 97 97 97 Oxygen Delivery Me thod Oxygen Flow Rate 03/11/23 23:00 03/11/23 23:02 03/11/23 23:11 Temperature Pulse Rate 81 81 86 Pulse Rate [Right Pulse Oximeter] Respiratory Rate Blood Pressure 102/58 L 97/60 Blood Pressure [Le ft Arm] Blood Pressure [Le ft Upper Arm] Pulse Oximetry 95 96 95 Oxygen Delivery Me thod Oxygen Flow Rate 03/11/23 23:15 03/11/23 23:22 03/11/23 23:32 Temperature Pulse Rate 83 85 83 Pulse Rate [Right Pulse Oximeter] Respiratory Rate 18 18 Blood Pressure 118/82 108/67 Blood Pressure [Le ft Arm] Blood Pressure [Le ft Upper Arm] Pulse Oximetry 95 98 96 Oxygen Delivery Me thod Oxygen Flow Rate 03/11/23 23:42 03/11/23 23:52 03/12/23 00:11 Temperature Pulse Rate 84 86 85 Pulse Rate [Right Pulse Oximeter] Respiratory Rate 18 18 18 Blood Pressure 98/46 L 99/58 L 103/56 L Blood Pressure [Le ft Arm] Blood Pressure [Le ft Upper Arm] Pulse Oximetry 97 96 96 Oxygen Delivery Me thod Oxygen Flow Rate 03/12/23 01:23 03/12/23 01:35 03/12/23 01:41 Temperature 98.2 F Pulse Rate 87 85 Pulse Rate [Right Pulse Oximeter] Respiratory Rate 18 Blood Pressure 112/58 L 102/63 Blood Pressure [Le ft Arm] Blood Pressure [Le ft Upper Arm] Pulse Oximetry 95 93 Oxygen Delivery Me thod Oxygen Flow Rate 03/12/23 01:51 03/12/23 02:01 03/12/23 02:40 Temperature 98.2 F Pulse Rate 84 84 Pulse Rate [Right Pulse Oximeter] Respiratory Rate 18 Blood Pressure 95/61 88/53 L Blood Pressure [Le ft Arm] 95/67 Blood Pressure [Le ft Upper Arm] Pulse Oximetry 95 94 94 Oxygen Delivery Me thod Room Air OxyMask Oxygen Flow Rate 03/12/23 03:01 03/12/23 03:05 03/12/23 03:31 Temperature 98.2 F 98.0 F Pulse Rate 78 76 Pulse Rate [Right Pulse Oximeter] Respiratory Rate 18 Blood Pressure 92/61 91/59 L Blood Pressure [Le ft Arm] Blood Pressure [Le ft Upper Arm] Pulse Oximetry 94 94 Oxygen Delivery Me thod Oxygen Flow Rate 03/12/23 03:43 03/12/23 04:01 03/12/23 04:31 Temperature 98.0 F Pulse Rate 73 74 Pulse Rate [Right Pulse Oximeter] 75 Respiratory Rate 18 18 16 Blood Pressure 112/61 109/71 Blood Pressure [Le ft Arm] 95/67 Blood Pressure [Le ft Upper Arm] Pulse Oximetry 94 94 96 Oxygen Delivery Me thod Room Air OxyMask Oxygen Flow Rate 0 03/12/23 05:01 03/12/23 06:01 03/12/23 06:32 Temperature Pulse Rate 74 76 80 Pulse Rate [Right Pulse Oximeter] Respiratory Rate 18 18 Blood Pressure 91/60 118/76 103/82 Blood Pressure [Le ft Arm] Blood Pressure [Le ft Upper Arm] Pulse Oximetry 94 95 97 Oxygen Delivery Me thod Oxygen Flow Rate 03/12/23 06:33 03/12/23 07:00 03/12/23 07:01 Temperature Pulse Rate 81 80 82 Pulse Rate [Right Pulse Oximeter] Respiratory Rate Blood Pressure 111/64 105/74 Blood Pressure [Le ft Arm] Blood Pressure [Le ft Upper Arm] Pulse Oximetry 95 95 96 Oxygen Delivery Me thod Oxygen Flow Rate 03/12/23 07:02 03/12/23 07:30 03/12/23 07:31 Temperature Pulse Rate 78 81 80 Pulse Rate [Right Pulse Oximeter] Respiratory Rate Blood Pressure 112/63 Blood Pressure [Le ft Arm] Blood Pressure [Le ft Upper Arm] Pulse Oximetry 98 97 97 Oxygen Delivery Me thod Oxygen Flow Rate 03/12/23 07:32 03/12/23 07:43 03/12/23 08:00 Temperature Pulse Rate 79 81 Pulse Rate [Right Pulse Oximeter] 80 Respiratory Rate 18 Blood Pressure Blood Pressure [Le ft Arm] 112/83 Blood Pressure [Le ft Upper Arm] Pulse Oximetry 97 96 98 Oxygen Delivery Me thod Room Air Oxygen Flow Rate 03/12/23 08:01 03/12/23 08:30 03/12/23 08:33 Temperature Pulse Rate 83 86 86 Pulse Rate [Right Pulse Oximeter] Respiratory Rate Blood Pressure 120/70 134/78 Blood Pressure [Le ft Arm] Blood Pressure [Le ft Upper Arm] Pulse Oximetry 97 97 97 Oxygen Delivery Me thod Oxygen Flow Rate 03/12/23 09:00 03/12/23 09:02 03/12/23 09:03 Temperature Pulse Rate 88 89 89 Pulse Rate [Right Pulse Oximeter] Respiratory Rate Blood Pressure 91/73 Blood Pressure [Le ft Arm] Blood Pressure [Le ft Upper Arm] Pulse Oximetry 95 96 98 Oxygen Delivery Me thod Oxygen Flow Rate 03/12/23 09:30 03/12/23 09:31 03/12/23 09:32 Temperature Pulse Rate 93 89 91 Pulse Rate [Right Pulse Oximeter] Respiratory Rate Blood Pressure 91/66 Blood Pressure [Le ft Arm] Blood Pressure [Le ft Upper Arm] Pulse Oximetry 96 96 96 Oxygen Delivery Me thod Oxygen Flow Rate 03/12/23 10:00 03/12/23 10:02 03/12/23 10:30 Temperature Pulse Rate 83 92 93 Pulse Rate [Right Pulse Oximeter] Respiratory Rate Blood Pressure 122/71 Blood Pressure [Le ft Arm] Blood Pressure [Le ft Upper Arm] Pulse Oximetry 94 94 95 Oxygen Delivery Me thod Oxygen Flow Rate 03/12/23 10:31 03/12/23 11:00 03/12/23 11:01 Temperature Pulse Rate 90 89 88 Pulse Rate [Right Pulse Oximeter] Respiratory Rate Blood Pressure 132/83 130/78 Blood Pressure [Le ft Arm] Blood Pressure [Le ft Upper Arm] Pulse Oximetry 94 94 95 Oxygen Delivery Me thod Oxygen Flow Rate 03/12/23 11:30 03/12/23 11:31 03/12/23 11:32 Temperature Pulse Rate 88 89 89 Pulse Rate [Right Pulse Oximeter] Respiratory Rate Blood Pressure 136/74 Blood Pressure [Le ft Arm] Blood Pressure [Le ft Upper Arm] Pulse Oximetry 92 95 94 Oxygen Delivery Me thod Oxygen Flow Rate 03/12/23 12:05 03/12/23 12:07 03/12/23 12:30 Temperature Pulse Rate 90 92 89 Pulse Rate [Right Pulse Oximeter] Respiratory Rate Blood Pressure 138/84 Blood Pressure [Le ft Arm] Blood Pressure [Le ft Upper Arm] Pulse Oximetry 93 96 94 Oxygen Delivery Me thod Oxygen Flow Rate 03/12/23 12:31 03/12/23 12:32 03/12/23 13:00 Temperature Pulse Rate 91 91 89 Pulse Rate [Right Pulse Oximeter] Respiratory Rate Blood Pressure 145/79 H Blood Pressure [Le ft Arm] Blood Pressure [Le ft Upper Arm] Pulse Oximetry 95 95 93 Oxygen Delivery Me thod Oxygen Flow Rate <Padmaja Butler MD - Last Filed: 03/15/23 00:05> Vital Signs, click to edit/add: Vital Signs - 24 hr 03/11/23 18:58 03/11/23 19:17 03/11/23 19:18 Temperature 97.2 F L Pulse Rate 73 72 Pulse Rate [Right Pulse Oximeter] 74 Respiratory Rate 10 L Blood Pressure 77/46 L Blood Pressure [Le ft Arm] Blood Pressure [Le ft Upper Arm] 75/33 L Pulse Oximetry 88 96 96 Oxygen Delivery Me thod OxyMask Oxygen Flow Rate 2 2 03/11/23 19:21 03/11/23 19:23 03/11/23 19:24 Temperature 97.2 F L Pulse Rate 73 73 Pulse Rate [Right Pulse Oximeter] 68 Respiratory Rate 10 L Blood Pressure 68/46 L 71/49 L Blood Pressure [Le ft Arm] Blood Pressure [Le ft Upper Arm] 66/47 L Pulse Oximetry 97 92 98 Oxygen Delivery Me thod OxyMask Oxygen Flow Rate 2 2 03/11/23 19:29 03/11/23 19:30 03/11/23 19:31 Temperature Pulse Rate 74 75 72 Pulse Rate [Right Pulse Oximeter] Respiratory Rate Blood Pressure 78/48 L 91/47 L Blood Pressure [Le ft Arm] Blood Pressure [Le ft Upper Arm] Pulse Oximetry 96 97 95 Oxygen Delivery Me thod Oxygen Flow Rate 0 03/11/23 19:38 03/11/23 19:55 03/11/23 19:57 Temperature Pulse Rate 75 78 76 Pulse Rate [Right Pulse Oximeter] Respiratory Rate Blood Pressure 98/41 L 83/45 L Blood Pressure [Le ft Arm] Blood Pressure [Le ft Upper Arm] Pulse Oximetry 95 94 96 Oxygen Delivery Me thod Oxygen Flow Rate 03/11/23 20:00 03/11/23 20:02 03/11/23 20:14 Temperature Pulse Rate 77 74 77 Pulse Rate [Right Pulse Oximeter] Respiratory Rate Blood Pressure 84/63 L Blood Pressure [Le ft Arm] Blood Pressure [Le ft Upper Arm] Pulse Oximetry 96 97 97 Oxygen Delivery Me thod Oxygen Flow Rate 03/11/23 20:15 03/11/23 20:19 03/11/23 20:21 Temperature Pulse Rate 79 76 76 Pulse Rate [Right Pulse Oximeter] Respiratory Rate Blood Pressure 81/47 L 89/52 L Blood Pressure [Le ft Arm] Blood Pressure [Le ft Upper Arm] Pulse Oximetry 97 93 95 Oxygen Delivery Me thod Oxygen Flow Rate 03/11/23 20:30 03/11/23 20:31 03/11/23 20:44 Temperature Pulse Rate 77 76 79 Pulse Rate [Right Pulse Oximeter] Respiratory Rate Blood Pressure 95/47 L 65/42 L Blood Pressure [Le ft Arm] Blood Pressure [Le ft Upper Arm] Pulse Oximetry 96 96 95 Oxygen Delivery Me thod Oxygen Flow Rate 03/11/23 20:45 03/11/23 20:47 03/11/23 20:52 Temperature Pulse Rate 80 80 79 Pulse Rate [Right Pulse Oximeter] Respiratory Rate Blood Pressure 95/50 L 94/40 L Blood Pressure [Le ft Arm] Blood Pressure [Le ft Upper Arm] Pulse Oximetry 95 95 96 Oxygen Delivery Me thod Oxygen Flow Rate 03/11/23 21:00 03/11/23 21:01 03/11/23 21:15 Temperature Pulse Rate 80 79 84 Pulse Rate [Right Pulse Oximeter] Respiratory Rate Blood Pressure 45/35 L 169/127 H Blood Pressure [Le ft Arm] Blood Pressure [Le ft Upper Arm] Pulse Oximetry 95 98 97 Oxygen Delivery Me thod Oxygen Flow Rate 03/11/23 21:16 03/11/23 21:24 03/11/23 21:30 Temperature Pulse Rate 84 83 81 Pulse Rate [Right Pulse Oximeter] Respiratory Rate Blood Pressure 125/46 L Blood Pressure [Le ft Arm] Blood Pressure [Le ft Upper Arm] Pulse Oximetry 97 94 95 Oxygen Delivery Me thod Oxygen Flow Rate 03/11/23 21:32 03/11/23 21:42 03/11/23 21:45 Temperature Pulse Rate 81 85 82 Pulse Rate [Right Pulse Oximeter] Respiratory Rate Blood Pressure 99/55 L 98/52 L Blood Pressure [Le ft Arm] Blood Pressure [Le ft Upper Arm] Pulse Oximetry 97 97 94 Oxygen Delivery Me thod Oxygen Flow Rate 03/11/23 21:46 03/11/23 21:52 03/11/23 22:00 Temperature Pulse Rate 81 84 84 Pulse Rate [Right Pulse Oximeter] Respiratory Rate Blood Pressure 88/63 L 107/51 L Blood Pressure [Le ft Arm] Blood Pressure [Le ft Upper Arm] Pulse Oximetry 96 97 97 Oxygen Delivery Me thod Oxygen Flow Rate 03/11/23 22:02 03/11/23 22:11 03/11/23 22:15 Temperature Pulse Rate 84 83 83 Pulse Rate [Right Pulse Oximeter] Respiratory Rate Blood Pressure 87/75 L 92/67 Blood Pressure [Le ft Arm] Blood Pressure [Le ft Upper Arm] Pulse Oximetry 95 97 96 Oxygen Delivery Me thod Oxygen Flow Rate 03/11/23 22:21 03/11/23 22:30 03/11/23 22:31 Temperature Pulse Rate 84 82 84 Pulse Rate [Right Pulse Oximeter] Respiratory Rate Blood Pressure 112/63 108/65 Blood Pressure [Le ft Arm] Blood Pressure [Le ft Upper Arm] Pulse Oximetry 97 98 97 Oxygen Delivery Me thod Oxygen Flow Rate 03/11/23 22:41 03/11/23 22:45 03/11/23 22:51 Temperature Pulse Rate 84 82 82 Pulse Rate [Right Pulse Oximeter] Respiratory Rate Blood Pressure 97/64 99/56 L Blood Pressure [Le ft Arm] Blood Pressure [Le ft Upper Arm] Pulse Oximetry 97 97 97 Oxygen Delivery Me thod Oxygen Flow Rate 03/11/23 23:00 03/11/23 23:02 03/11/23 23:11 Temperature Pulse Rate 81 81 86 Pulse Rate [Right Pulse Oximeter] Respiratory Rate Blood Pressure 102/58 L 97/60 Blood Pressure [Le ft Arm] Blood Pressure [Le ft Upper Arm] Pulse Oximetry 95 96 95 Oxygen Delivery Me thod Oxygen Flow Rate 03/11/23 23:15 03/11/23 23:22 03/11/23 23:32 Temperature Pulse Rate 83 85 83 Pulse Rate [Right Pulse Oximeter] Respiratory Rate 18 18 Blood Pressure 118/82 108/67 Blood Pressure [Le ft Arm] Blood Pressure [Le ft Upper Arm] Pulse Oximetry 95 98 96 Oxygen Delivery Me thod Oxygen Flow Rate 03/11/23 23:42 03/11/23 23:52 03/12/23 00:11 Temperature Pulse Rate 84 86 85 Pulse Rate [Right Pulse Oximeter] Respiratory Rate 18 18 18 Blood Pressure 98/46 L 99/58 L 103/56 L Blood Pressure [Le ft Arm] Blood Pressure [Le ft Upper Arm] Pulse Oximetry 97 96 96 Oxygen Delivery Me thod Oxygen Flow Rate 03/12/23 01:23 03/12/23 01:35 03/12/23 01:41 Temperature 98.2 F Pulse Rate 87 85 Pulse Rate [Right Pulse Oximeter] Respiratory Rate 18 Blood Pressure 112/58 L 102/63 Blood Pressure [Le ft Arm] Blood Pressure [Le ft Upper Arm] Pulse Oximetry 95 93 Oxygen Delivery Me thod Oxygen Flow Rate 03/12/23 01:51 03/12/23 02:01 03/12/23 02:40 Temperature 98.2 F Pulse Rate 84 84 Pulse Rate [Right Pulse Oximeter] Respiratory Rate 18 Blood Pressure 95/61 88/53 L Blood Pressure [Le ft Arm] 95/67 Blood Pressure [Le ft Upper Arm] Pulse Oximetry 95 94 94 Oxygen Delivery Me thod Room Air OxyMask Oxygen Flow Rate 03/12/23 03:01 03/12/23 03:05 03/12/23 03:31 Temperature 98.2 F 98.0 F Pulse Rate 78 76 Pulse Rate [Right Pulse Oximeter] Respiratory Rate 18 Blood Pressure 92/61 91/59 L Blood Pressure [Le ft Arm] Blood Pressure [Le ft Upper Arm] Pulse Oximetry 94 94 Oxygen Delivery Me thod Oxygen Flow Rate 03/12/23 03:43 03/12/23 04:01 03/12/23 04:31 Temperature 98.0 F Pulse Rate 73 74 Pulse Rate [Right Pulse Oximeter] 75 Respiratory Rate 18 18 16 Blood Pressure 112/61 109/71 Blood Pressure [Le ft Arm] 95/67 Blood Pressure [Le ft Upper Arm] Pulse Oximetry 94 94 96 Oxygen Delivery Me thod Room Air OxyMask Oxygen Flow Rate 0 03/12/23 05:01 03/12/23 06:01 03/12/23 06:32 Temperature Pulse Rate 74 76 80 Pulse Rate [Right Pulse Oximeter] Respiratory Rate 18 18 Blood Pressure 91/60 118/76 103/82 Blood Pressure [Le ft Arm] Blood Pressure [Le ft Upper Arm] Pulse Oximetry 94 95 97 Oxygen Delivery Me thod Oxygen Flow Rate 03/12/23 06:33 03/12/23 07:00 03/12/23 07:01 Temperature Pulse Rate 81 80 82 Pulse Rate [Right Pulse Oximeter] Respiratory Rate Blood Pressure 111/64 105/74 Blood Pressure [Le ft Arm] Blood Pressure [Le ft Upper Arm] Pulse Oximetry 95 95 96 Oxygen Delivery Me thod Oxygen Flow Rate 03/12/23 07:02 03/12/23 07:30 03/12/23 07:31 Temperature Pulse Rate 78 81 80 Pulse Rate [Right Pulse Oximeter] Respiratory Rate Blood Pressure 112/63 Blood Pressure [Le ft Arm] Blood Pressure [Le ft Upper Arm] Pulse Oximetry 98 97 97 Oxygen Delivery Me thod Oxygen Flow Rate 03/12/23 07:32 03/12/23 07:43 03/12/23 08:00 Temperature Pulse Rate 79 81 Pulse Rate [Right Pulse Oximeter] 80 Respiratory Rate 18 Blood Pressure Blood Pressure [Le ft Arm] 112/83 Blood Pressure [Le ft Upper Arm] Pulse Oximetry 97 96 98 Oxygen Delivery Me thod Room Air Oxygen Flow Rate 03/12/23 08:01 03/12/23 08:30 03/12/23 08:33 Temperature Pulse Rate 83 86 86 Pulse Rate [Right Pulse Oximeter] Respiratory Rate Blood Pressure 120/70 134/78 Blood Pressure [Le ft Arm] Blood Pressure [Le ft Upper Arm] Pulse Oximetry 97 97 97 Oxygen Delivery Me thod Oxygen Flow Rate 03/12/23 09:00 03/12/23 09:02 03/12/23 09:03 Temperature Pulse Rate 88 89 89 Pulse Rate [Right Pulse Oximeter] Respiratory Rate Blood Pressure 91/73 Blood Pressure [Le ft Arm] Blood Pressure [Le ft Upper Arm] Pulse Oximetry 95 96 98 Oxygen Delivery Me thod Oxygen Flow Rate 03/12/23 09:30 03/12/23 09:31 03/12/23 09:32 Temperature Pulse Rate 93 89 91 Pulse Rate [Right Pulse Oximeter] Respiratory Rate Blood Pressure 91/66 Blood Pressure [Le ft Arm] Blood Pressure [Le ft Upper Arm] Pulse Oximetry 96 96 96 Oxygen Delivery Me thod Oxygen Flow Rate 03/12/23 10:00 03/12/23 10:02 03/12/23 10:30 Temperature Pulse Rate 83 92 93 Pulse Rate [Right Pulse Oximeter] Respiratory Rate Blood Pressure 122/71 Blood Pressure [Le ft Arm] Blood Pressure [Le ft Upper Arm] Pulse Oximetry 94 94 95 Oxygen Delivery Me thod Oxygen Flow Rate 03/12/23 10:31 03/12/23 11:00 03/12/23 11:01 Temperature Pulse Rate 90 89 88 Pulse Rate [Right Pulse Oximeter] Respiratory Rate Blood Pressure 132/83 130/78 Blood Pressure [Le ft Arm] Blood Pressure [Le ft Upper Arm] Pulse Oximetry 94 94 95 Oxygen Delivery Me thod Oxygen Flow Rate 03/12/23 11:30 03/12/23 11:31 03/12/23 11:32 Temperature Pulse Rate 88 89 89 Pulse Rate [Right Pulse Oximeter] Respiratory Rate Blood Pressure 136/74 Blood Pressure [Le ft Arm] Blood Pressure [Le ft Upper Arm] Pulse Oximetry 92 95 94 Oxygen Delivery Me thod Oxygen Flow Rate 03/12/23 12:05 03/12/23 12:07 03/12/23 12:30 Temperature Pulse Rate 90 92 89 Pulse Rate [Right Pulse Oximeter] Respiratory Rate Blood Pressure 138/84 Blood Pressure [Le ft Arm] Blood Pressure [Le ft Upper Arm] Pulse Oximetry 93 96 94 Oxygen Delivery Me thod Oxygen Flow Rate 03/12/23 12:31 03/12/23 12:32 03/12/23 13:00 Temperature Pulse Rate 91 91 89 Pulse Rate [Right Pulse Oximeter] Respiratory Rate Blood Pressure 145/79 H Blood Pressure [Le ft Arm] Blood Pressure [Le ft Upper Arm] Pulse Oximetry 95 95 93 Oxygen Delivery Me thod Oxygen Flow Rate <Ángel Castañeda MD - Last Filed: 03/12/23 13:10> Course Reevaluation(s) Time of Reevaluation #1: 02:48 <Padmaja Butler MD - Last Filed: 03/15/23 00:05> Reevaluation #1: Dr. Butler- I assumed care from Dr. Jorge. Nursing team letting me know pretty quickly that he was requesting something for pain and that he was still hypotensive. I reviewed his chart, map is running around 60. I see that he had a Bae placed at about 10:00 p.m.. Patient is making excellent urine, 200 mL in the past 3 hours. He is mentating normally and not experiencing any cardiopulmonary symptoms. The low blood pressures are concerning but not surprising in the setting of his renal failure, dehydration and blood pressure medications. It sounds as though he is in pre renal azotemia from a combination of drug use, blood pressure medications and dehydration. Since we are seeing good signs of organ perfusion with the urine output, I do not recommend that we start vasopressors at this time. Discussed criteria for doing so with the nursing team. I have asked that they update me q.2 hours with the urine output and we use this as another tool to determine organ perfusion rather than just blood pressures. I have ordered an ultrasound for 630 of the kidneys when staff are available and are repeat basic metabolic panel at that time. Nursing team reports understanding of interim plan. Update 8:00 a.m.: If continue to watch the patient's blood pressures closely overnight and they have been overall trending upward which is reassuring. He is also making at least 30 mL/hour of urine, indicating good organ perfusion. I do not recommend starting pressors at this time. His mentation has remained intact. He asks about starting his morning medications this morning. All of the should be held. He has issues with chronic pain. Therefore I have ordered hydrocodone and Tylenol to be given every 6 hours as needed. He should not be given any NSAIDs or antihypertensives at this time. Further review of his medications can be given to determine if cyclobenzaprine could be restarted. Will restart gabapentin at half his current daily dosing. Renal ultrasound reviewed.IMPRESSION: Simple left renal cyst measuring 1.5 centimeters, essentially unremarkable renal ultrasound. No evidence of hydronephrosis. Will hand over care to incoming day shift partner. <Padmaja Butler MD - Last Filed: 03/15/23 00:05> Time of Reevaluation #2: 12:11 <Ángel Castañeda MD - Last Filed: 03/12/23 13:10> Reevaluation #2: I received Mr. Alvarado at change of shift this morning. At that time was requesting to talk to physician wanting to leave the emergency department. His mother did arrive. I had this conversation regarding renal failure with both. He continues to make good urine. His intention is to go home and treat his pain continuing to drink alcohol but he said he would at least take some Gatorade. He is complaining of chronic pain and being uncomfortable in the bed as well as burning from the urinary catheter. I did encourage him to stay in hospital setting to monitor improvement in renal function and further treatment is ne cessary. Also did order medication for pain and agitation/restlessness. Two tabs of [place] and 2 mg of lorazepam. At this point cannot see any movement in progressing to tertiary facility. Would like to consider for admission at this facility. <Ángel Castañeda MD - Last Filed: 03/12/23 13:10> Vital Signs Vital signs: Initial Vital Signs Temperature 97.2 F L 03/11/23 18:58 Temperature Source Temporal Artery Scan 03/11/23 18:58 Pulse Rate 74 03/11/23 18:58 Respiratory Rate 10 L 03/11/23 18:58 Blood Pressure 75/33 L 03/11/23 18:58 Blood Pressure Mean 47 L 03/11/23 18:58 Blood Pressure Position Sitting 03/11/23 18:58 Pulse Oximetry 88 03/11/23 18:58 Oxygen Delivery Method OxyMask 03/11/23 18:58 Vital Signs Temperature 97.2 F L 03/11/23 18:58 Pulse Rate 74 03/11/23 18:58 Respiratory Rate 10 L 03/11/23 18:58 Blood Pressure 75/33 L 03/11/23 18:58 Pulse Oximetry 88 03/11/23 18:58 Oxygen Delivery Method OxyMask 03/11/23 18:58 Temperature 98.9 F 03/14/23 07:00 Pulse Rate 81 03/14/23 10:03 Respiratory Rate 18 03/14/23 10:03 Blood Pressure 172/98 H 03/14/23 10:03 Pulse Oximetry 97 03/14/23 10:03 Oxygen Delivery Method Room Air 03/14/23 10:03 Oxygen Flow Rate 0 03/14/23 07:00 <Salvatore Jorge DO - Last Filed: 03/13/23 13:54> Initial Vital Signs Temperature 97.2 F L 03/11/23 18:58 Temperature Source Temporal Artery Scan 03/11/23 18:58 Pulse Rate 74 03/11/23 18:58 Respiratory Rate 10 L 03/11/23 18:58 Blood Pressure 75/33 L 03/11/23 18:58 Blood Pressure Mean 47 L 03/11/23 18:58 Blood Pressure Position Sitting 03/11/23 18:58 Pulse Oximetry 88 03/11/23 18:58 Oxygen Delivery Method OxyMask 03/11/23 18:58 Vital Signs Temperature 97.2 F L 03/11/23 18:58 Pulse Rate 74 03/11/23 18:58 Respiratory Rate 10 L 03/11/23 18:58 Blood Pressure 75/33 L 03/11/23 18:58 Pulse Oximetry 88 03/11/23 18:58 Oxygen Delivery Method OxyMask 03/11/23 18:58 Temperature 98.9 F 03/14/23 07:00 Pulse Rate 81 03/14/23 10:03 Respiratory Rate 18 03/14/23 10:03 Blood Pressure 172/98 H 03/14/23 10:03 Pulse Oximetry 97 03/14/23 10:03 Oxygen Delivery Method Room Air 03/14/23 10:03 Oxygen Flow Rate 0 03/14/23 07:00 <Padmaja Butler MD - Last Filed: 03/15/23 00:05> Initial Vital Signs Temperature 97.2 F L 03/11/23 18:58 Temperature Source Temporal Artery Scan 03/11/23 18:58 Pulse Rate 74 03/11/23 18:58 Respiratory Rate 10 L 03/11/23 18:58 Blood Pressure 75/33 L 03/11/23 18:58 Blood Pressure Mean 47 L 03/11/23 18:58 Blood Pressure Position Sitting 03/11/23 18:58 Pulse Oximetry 88 03/11/23 18:58 Oxygen Delivery Method OxyMask 03/11/23 18:58 Vital Signs Temperature 97.2 F L 03/11/23 18:58 Pulse Rate 74 03/11/23 18:58 Respiratory Rate 10 L 03/11/23 18:58 Blood Pressure 75/33 L 03/11/23 18:58 Pulse Oximetry 88 03/11/23 18:58 Oxygen Delivery Method OxyMask 03/11/23 18:58 Temperature 98.9 F 03/14/23 07:00 Pulse Rate 81 03/14/23 10:03 Respiratory Rate 18 03/14/23 10:03 Blood Pressure 172/98 H 03/14/23 10:03 Pulse Oximetry 97 03/14/23 10:03 Oxygen Delivery Method Room Air 03/14/23 10:03 Oxygen Flow Rate 0 03/14/23 07:00 <Ángel Castañeda MD - Last Filed: 03/12/23 13:10> Medications Administered Medications: Generic Name Dose Route Start Last Admin Trade Name Freq PRN Reason Stop Dose Admin Acetaminophen 975 mg 03/12/23 19:00 03/14/23 08:21 Acetaminophen 325 Mg Tablet PO 975 mg Q8H GAVI Administration Gabapentin 300 mg 03/12/23 09:00 03/13/23 02:42 Gabapentin 300 Mg Capsule PO Not Given TID GAVI Gabapentin 600 mg 03/12/23 14:00 03/14/23 08:20 Gabapentin 600 Mg Tablet PO 600 mg TID GAVI Administration Hydroxyzine Pamoate 25 mg 03/12/23 13:33 03/13/23 11:03 Hydroxyzine Pamoate 25 Mg Capsule PO 25 mg Q4H PRN Administration Sodium Chloride 1,000 mls @ 125 mls/hr 03/12/23 13:00 03/14/23 07:46 0.9 % Sodium Chloride 1000 Ml IV 125 mls/hr .Q8H GAVI Administration Lidocaine 1 patch 03/12/23 18:00 03/13/23 17:59 Lidocaine 5% Patch TRANSDERMA 1 patch Q24H GAVI Administration Protocol Lorazepam 1 - 4 mg 03/12/23 13:00 03/14/23 08:22 Lorazepam 2 Mg/Ml Inj IVP 1 mg Q30M PRN Administration Protocol Lorazepam 1 - 4 mg 03/12/23 13:00 03/13/23 18:59 Lorazepam 1 Mg Tablet PO 1 mg Q30M PRN Administration Protocol Metoprolol Succinate 100 mg 03/12/23 13:59 03/14/23 08:20 Metoprolol Succinate (Xl) 100 Mg Tab PO 100 mg DAILY GAVI Administration Omeprazole 20 mg 03/12/23 13:00 03/14/23 08:12 [address] PO 20 mg DAILY@0700 GAVI Administration Prazosin HCl 2 mg 03/12/23 18:00 03/13/23 17:58 Prazosin Hcl 1 Mg Capsule PO 2 mg QPM GAVI Administration Quetiapine Fumarate 600 mg 03/12/23 21:00 03/13/23 21:14 Quetiapine 100 Mg Tablet PO 600 mg HS GAVI Administration Ropinirole HCl 2 mg 03/12/23 21:00 03/14/23 08:21 Ropinirole Hcl 1 Mg Tablet PO 2 mg BID GAVI Administration Sodium Chloride 5 ml 03/12/23 13:33 03/13/23 14:53 Sodium Chloride 0.9 % (Flush) 10 Ml Syringe IVF 5 ml .FLUSH PRN Administration Sodium Chloride 5 ml 03/12/23 21:00 03/14/23 08:17 Sodium Chloride 0.9 % (Flush) 10 Ml Syringe IVF Not Given BID GAVI Discontinued Medications Generic Name Dose Route Start Last Admin Trade Name Freq PRN Reason Stop Dose Admin Hydrocodone Bitart/Acetaminophen 2 tab 03/12/23 01:19 03/12/23 01:23 Hydrocodone-Acetamin 5-325 Mg 1 Tab PO 03/12/23 01:20 2 tab ONCE ONE Administration Hydrocodone Bitart/Acetaminophen 1 tab 03/12/23 07:46 03/13/23 11:02 Hydrocodone-Acetamin 5-325 Mg 1 Tab PO 1 tab Q6H PRN Administration Hydrocodone Bitart/Acetaminophen 2 tab 03/12/23 10:28 03/12/23 11:10 Hydrocodone-Acetamin 5-325 Mg 1 Tab PO 03/12/23 10:29 2 tab ONCE ONE Administration Sodium Chloride 1,000 mls @ 125 mls/hr 03/11/23 23:56 03/14/23 07:49 0.9 % Sodium Chloride 1000 Ml IV Infused .Q8H GAVI Infusion Phenobarbital 260 mg/ Sodium 104 mls @ 208 mls/hr 03/14/23 00:23 03/14/23 01:36 Chloride IVPB 03/14/23 00:52 Infused ONCE ONE Infusion Loperamide HCl 4 mg 03/14/23 10:08 03/14/23 10:15 Loperamide Hcl 2 Mg Capsule PO 03/14/23 10:09 4 mg ONCE ONE Administration Lorazepam 2 mg 03/12/23 10:28 03/12/23 11:10 Lorazepam 1 Mg Tablet PO 03/12/23 10:29 2 mg ONCE ONE Administration Phenobarbital 324 mg 03/13/23 23:05 03/14/23 07:48 Phenobarbital 32.4 Mg Tablet PO 03/13/23 23:06 Not Given ONCE ONE Potassium Bicarbonate 25 meq 03/13/23 08:20 03/13/23 10:58 Potassium Bicarb 25 Meq Effervescent Tab PO 03/13/23 08:21 Not Given ONCE ONE Potassium Bicarbonate 25 meq 03/14/23 11:11 03/14/23 11:47 Potassium Bicarb 25 Meq Effervescent Tab PO 03/14/23 11:12 25 meq ONCE ONE Administration Quetiapine Fumarate 600 mg 03/12/23 12:24 03/12/23 12:42 Quetiapine 100 Mg Tablet PO 03/12/23 12:25 600 mg ONCE ONE Administration Ropinirole HCl 2 mg 03/12/23 12:24 03/12/23 12:43 Ropinirole Hcl 1 Mg Tablet PO 03/12/23 12:25 2 mg ONCE ONE Administration Thiamine HCl 100 mg 03/12/23 13:00 03/13/23 14:53 Thiamine 100 Mg Tablet PO 03/14/23 13:01 100 mg Q24H GAVI Administration <Salvatore Jorge, DO - Last Filed: 03/13/23 13:54> Generic Name Dose Route Start Last Admin Trade Name Freq PRN Reason Stop Dose Admin Acetaminophen 975 mg 03/12/23 19:00 03/14/23 08:21 Acetaminophen 325 Mg Tablet PO 975 mg Q8H GAVI Administration Gabapentin 300 mg 03/12/23 09:00 03/13/23 02:42 Gabapentin 300 Mg Capsule PO Not Given TID GAVI Gabapentin 600 mg 03/12/23 14:00 03/14/23 08:20 Gabapentin 600 Mg Tablet PO 600 mg TID GAVI Administration Hydroxyzine Pamoate 25 mg 03/12/23 13:33 03/13/23 11:03 Hydroxyzine Pamoate 25 Mg Capsule PO 25 mg Q4H PRN Administration Sodium Chloride 1,000 mls @ 125 mls/hr 03/12/23 13:00 03/14/23 07:46 0.9 % Sodium Chloride 1000 Ml IV 125 mls/hr .Q8H GAVI Administration Lidocaine 1 patch 03/12/23 18:00 03/13/23 17:59 Lidocaine 5% Patch TRANSDERMA 1 patch Q24H GAVI Administration Protocol Lorazepam 1 - 4 mg 03/12/23 13:00 03/14/23 08:22 Lorazepam 2 Mg/Ml Inj IVP 1 mg Q30M PRN Administration Protocol Lorazepam 1 - 4 mg 03/12/23 13:00 03/13/23 18:59 Lorazepam 1 Mg Tablet PO 1 mg Q30M PRN Administration Protocol Metoprolol Succinate 100 mg 03/12/23 13:59 03/14/23 08:20 Metoprolol Succinate (Xl) 100 Mg Tab PO 100 mg DAILY GAVI Administration Omeprazole 20 mg 03/12/23 13:00 03/14/23 08:12 [address]epraz[address] PO 20 mg DAILY@0700 GAVI Administration Prazosin HCl 2 mg 03/12/23 18:00 03/13/23 17:58 Prazosin Hcl 1 Mg Capsule PO 2 mg QPM GAVI Administration Quetiapine Fumarate 600 mg 03/12/23 21:00 03/13/23 21:14 Quetiapine 100 Mg Tablet PO 600 mg HS GAVI Administration Ropinirole HCl 2 mg 03/12/23 21:00 03/14/23 08:21 Ropinirole Hcl 1 Mg Tablet PO 2 mg BID GAVI Administration Sodium Chloride 5 ml 03/12/23 13:33 03/13/23 14:53 Sodium Chloride 0.9 % (Flush) 10 Ml Syringe IVF 5 ml .FLUSH PRN Administration Sodium Chloride 5 ml 03/12/23 21:00 03/14/23 08:17 Sodium Chloride 0.9 % (Flush) 10 Ml Syringe IVF Not Given BID GAVI Discontinued Medications Generic Name Dose Route Start Last Admin Trade Name Freq PRN Reason Stop Dose Admin Hydrocodone Bitart/Acetaminophen 2 tab 03/12/23 01:19 03/12/23 01:23 Hydrocodone-Acetamin 5-325 Mg 1 Tab PO 03/12/23 01:20 2 tab ONCE ONE Administration Hydrocodone Bitart/Acetaminophen 1 tab 03/12/23 07:46 03/13/23 11:02 Hydrocodone-Acetamin 5-325 Mg 1 Tab PO 1 tab Q6H PRN Administration Hydrocodone Bitart/Acetaminophen 2 tab 03/12/23 10:28 03/12/23 11:10 Hydrocodone-Acetamin 5-325 Mg 1 Tab PO 03/12/23 10:29 2 tab ONCE ONE Administration Sodium Chloride 1,000 mls @ 125 mls/hr 03/11/23 23:56 03/14/23 07:49 0.9 % Sodium Chloride 1000 Ml IV Infused .Q8H GAVI Infusion Phenobarbital 260 mg/ Sodium 104 mls @ 208 mls/hr 03/14/23 00:23 03/14/23 01:36 Chloride IVPB 03/14/23 00:52 Infused ONCE ONE Infusion Loperamide HCl 4 mg 03/14/23 10:08 03/14/23 10:15 Loperamide Hcl 2 Mg Capsule PO 03/14/23 10:09 4 mg ONCE ONE Administration Lorazepam 2 mg 03/12/23 10:28 03/12/23 11:10 Lorazepam 1 Mg Tablet PO 03/12/23 10:29 2 mg ONCE ONE Administration Phenobarbital 324 mg 03/13/23 23:05 03/14/23 07:48 Phenobarbital 32.4 Mg Tablet PO 03/13/23 23:06 Not Given ONCE ONE Potassium Bicarbonate 25 meq 03/13/23 08:20 03/13/23 10:58 Potassium Bicarb 25 Meq Effervescent Tab PO 03/13/23 08:21 Not Given ONCE ONE Potassium Bicarbonate 25 meq 03/14/23 11:11 03/14/23 11:47 Potassium Bicarb 25 Meq Effervescent Tab PO 03/14/23 11:12 25 meq ONCE ONE Administration Quetiapine Fumarate 600 mg 03/12/23 12:24 03/12/23 12:42 Quetiapine 100 Mg Tablet PO 03/12/23 12:25 600 mg ONCE ONE Administration Ropinirole HCl 2 mg 03/12/23 12:24 03/12/23 12:43 Ropinirole Hcl 1 Mg Tablet PO 03/12/23 12:25 2 mg ONCE ONE Administration Thiamine HCl 100 mg 03/12/23 13:00 03/13/23 14:53 Thiamine 100 Mg Tablet PO 03/14/23 13:01 100 mg Q24H GAVI Administration <Padmaja Butler MD - Last Filed: 03/15/23 00:05> Generic Name Dose Route Start Last Admin Trade Name Freq PRN Reason Stop Dose Admin Acetaminophen 975 mg 03/12/23 19:00 03/14/23 08:21 Acetaminophen 325 Mg Tablet PO 975 mg Q8H GAVI Administration Gabapentin 300 mg 03/12/23 09:00 03/13/23 02:42 Gabapentin 300 Mg Capsule PO Not Given TID GAVI Gabapentin 600 mg 03/12/23 14:00 03/14/23 08:20 Gabapentin 600 Mg Tablet PO 600 mg TID GAVI Administration Hydroxyzine Pamoate 25 mg 03/12/23 13:33 03/13/23 11:03 Hydroxyzine Pamoate 25 Mg Capsule PO 25 mg Q4H PRN Administration Sodium Chloride 1,000 mls @ 125 mls/hr 03/12/23 13:00 03/14/23 07:46 0.9 % Sodium Chloride 1000 Ml IV 125 mls/hr .Q8H GAVI Administration Lidocaine 1 patch 03/12/23 18:00 03/13/23 17:59 Lidocaine 5% Patch TRANSDERMA 1 patch Q24H GAVI Administration Protocol Lorazepam 1 - 4 mg 03/12/23 13:00 03/14/23 08:22 Lorazepam 2 Mg/Ml Inj IVP 1 mg Q30M PRN Administration Protocol Lorazepam 1 - 4 mg 03/12/23 13:00 03/13/23 18:59 Lorazepam 1 Mg Tablet PO 1 mg Q30M PRN Administration Protocol Metoprolol Succinate 100 mg 03/12/23 13:59 03/14/23 08:20 Metoprolol Succinate (Xl) 100 Mg Tab PO 100 mg DAILY GAVI Administration Omeprazole 20 mg 03/12/23 13:00 03/14/23 08:12 [address]ep[address] PO 20 mg DAILY@0700 GAVI Administration Prazosin HCl 2 mg 03/12/23 18:00 03/13/23 17:58 Prazosin Hcl 1 Mg Capsule PO 2 mg QPM GAVI Administration Quetiapine Fumarate 600 mg 03/12/23 21:00 03/13/23 21:14 Quetiapine 100 Mg Tablet PO 600 mg HS GAVI Administration Ropinirole HCl 2 mg 03/12/23 21:00 03/14/23 08:21 Ropinirole Hcl 1 Mg Tablet PO 2 mg BID GAVI Administration Sodium Chloride 5 ml 03/12/23 13:33 03/13/23 14:53 Sodium Chloride 0.9 % (Flush) 10 Ml Syringe IVF 5 ml .FLUSH PRN Administration Sodium Chloride 5 ml 03/12/23 21:00 03/14/23 08:17 Sodium Chloride 0.9 % (Flush) 10 Ml Syringe IVF Not Given BID GAVI Discontinued Medications Generic Name Dose Route Start Last Admin Trade Name Freq PRN Reason Stop Dose Admin Hydrocodone Bitart/Acetaminophen 2 tab 03/12/23 01:19 03/12/23 01:23 Hydrocodone-Acetamin 5-325 Mg 1 Tab PO 03/12/23 01:20 2 tab ONCE ONE Administration Hydrocodone Bitart/Acetaminophen 1 tab 03/12/23 07:46 03/13/23 11:02 Hydrocodone-Acetamin 5-325 Mg 1 Tab PO 1 tab Q6H PRN Administration Hydrocodone Bitart/Acetaminophen 2 tab 03/12/23 10:28 03/12/23 11:10 Hydrocodone-Acetamin 5-325 Mg 1 Tab PO 03/12/23 10:29 2 tab ONCE ONE Administration Sodium Chloride 1,000 mls @ 125 mls/hr 03/11/23 23:56 03/14/23 07:49 0.9 % Sodium Chloride 1000 Ml IV Infused .Q8H GAVI Infusion Phenobarbital 260 mg/ Sodium 104 mls @ 208 mls/hr 03/14/23 00:23 03/14/23 01:36 Chloride IVPB 03/14/23 00:52 Infused ONCE ONE Infusion Loperamide HCl 4 mg 03/14/23 10:08 03/14/23 10:15 Loperamide Hcl 2 Mg Capsule PO 03/14/23 10:09 4 mg ONCE ONE Administration Lorazepam 2 mg 03/12/23 10:28 03/12/23 11:10 Lorazepam 1 Mg Tablet PO 03/12/23 10:29 2 mg ONCE ONE Administration Phenobarbital 324 mg 03/13/23 23:05 03/14/23 07:48 Phenobarbital 32.4 Mg Tablet PO 03/13/23 23:06 Not Given ONCE ONE Potassium Bicarbonate 25 meq 03/13/23 08:20 03/13/23 10:58 Potassium Bicarb 25 Meq Effervescent Tab PO 03/13/23 08:21 Not Given ONCE ONE Potassium Bicarbonate 25 meq 03/14/23 11:11 03/14/23 11:47 Potassium Bicarb 25 Meq Effervescent Tab PO 03/14/23 11:12 25 meq ONCE ONE Administration Quetiapine Fumarate 600 mg 03/12/23 12:24 03/12/23 12:42 Quetiapine 100 Mg Tablet PO 03/12/23 12:25 600 mg ONCE ONE Administration Ropinirole HCl 2 mg 03/12/23 12:24 03/12/23 12:43 Ropinirole Hcl 1 Mg Tablet PO 03/12/23 12:25 2 mg ONCE ONE Administration Thiamine HCl 100 mg 03/12/23 13:00 03/13/23 14:53 Thiamine 100 Mg Tablet PO 03/14/23 13:01 100 mg Q24H AGVI Administration <Ángel Castañeda MD - Last Filed: 03/12/23 13:10> Medical Decision Making [facility] Narrative Medical decision making narrative: Patient is a 57-year-old male presenting for shortness of breath, multiple falls, hypotension. We 1st arrived he was requiring 5 L of oxygen via OxyMask. He was also hypotensive. I was initially concerned about PE versus a ruptured AAA versus ACS or other similar emergencies. I considered doing a CTA chest abdomen pelvis right away but held off until I got a point of care creatinine. Of note we had a lot difficulty getting labs started on this patient due to his poor vasculature and due to his hypotension decided to put in a central line. I no some nausea and central line his external jugular was extremely collapsible so put him in Trendelenburg he had it popped up quite a bit. Central line was placed at this time I was thinking he might be dehydrated severely. We are will get lab work and point care creatinine was 6.7. Two months ago he is a 1.3 and is in acute renal failure at this time. Chest x-ray was done showing the catheter in good position with some vascular congestion. 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 He did respond slightly to this so another L was given. At this point he is off oxygen completely and continues to show no signs of worsening respiratory distress so final 3 L was given. I a.m. unsure what is all going on at this time and still want to do imaging so will do a bey scan chest/abdomen/pelvis along with the cervical spine and head with no contrast. While I know this would not be as useful I do not want to hurt his kidneys further. D-dimer returned at 0.388 this time it appears unlikely to be any type of dissection or pulmonary embolism and I am comfortable with not having contrast with the CTs. We did do a septic workup and his lactate was 1.7. White blood cell count was normal. He has not appear to be septic at this time. Once the CMP returned showed sodium of 135 potassium of 3.1 and a creatinine of 5.7. I am unsure why he is in this renal failure but we did place a Bae in only a small amount of dark brown urine came out. His creatinine kinase is only 231 and he does not appear to be in rhabdomyolysis. He does have initial troponin is 0.26 an EKG shows diffuse T-wave inversions. This is new compared to previous EKG on file but does not appear to have a having a STEMI. Is not having any chest pain at this time. Repeated the troponin few hours later it was 0.17 After fluids were given over time his blood pressures have improved. His pressures are now stable no that he does not need an ICU unit. There were no step-down unit available but he is on the wait list at [facility]. Patient is on multiple medications I went through all of his medications to them know which ones he can stand on. He can take atorvastatin, ropinirole, omeprazole, cyclobenzaprine. We recheck his BMP and his creatinine came down to 5.0. Will recheck it in the morning. He has not produced much urine at this time and there is concern is some type of kidney disease causing the symptoms. He has been taking diclofenac for several years twice a day. Does not appear to need emergent dialysis at this time. Throughout this time we have been trying to transfer the patient but he is not meeting criteria for ICU at this time and there were no available step-down unit beds or floor beds. Patient signed out to my colleague Dr. Butler at the end of my shift <Salvatore Jorge, - Last Filed: 03/13/23 13:54> Lab Data Labs: Lab Results 03/11/23 03/11/23 03/11/23 Range/Units 18:09 18:10 19:00 WBC 10.69 (4.50-11.00) K/uL RBC 5.50 (4.30-5.90) m/uL Hgb 17.4 (13.5-17.5) gm/dL Hct 51.9 (37.0-53.0) % MCV 94 (80-100) fL MCH 32 (26-34) pg MCHC 34 (32-36) gm/dL RDW Coeff of Negro 13.8 (11.5-15.5) % Plt Count 146 (140-440) K/uL Neut % (Auto) 80.3 H (42.0-72.0) % Lymph % (Auto) 8.1 L (20-44) % [place] % (Auto) 10.6 (0.0-11.0) % Eos % (Auto) 0.5 (0.0-7.0) % Baso % (Auto) 0.3 (0.0-3.0) % Neut # (Auto) 8.60 H (1.7-7.0) K/uL Lymph # (Auto) 0.90 (0.90-2.90) K/uL [place] # (Auto) 1.10 H (0.00-0.90) K/UL Eos # (Auto) 0.05 (0.00-0.50) K/uL Baso # (Auto) 0.03 (0.00-0.30) K/uL Abs Immat Gran (auto) 0.02 (0.00-0.30) K/uL Imm/Tot Granulo (auto) 0.2 % D-Dimer Quant (PE/DVT) 0.38 (0.00-0.50) ug/ml Sodium 135 (135-149) mmol/L Potassium 3.1 L (3.6-5.1) mmol/L Chloride 95 L (96-114) mmol/L Carbon Dioxide 29 (20-32) mmol/L Anion Gap 11 (7-15) mEq/L BUN 50 H (7-30) mg/dL Creatinine 5.7 H (0.5-1.5) mg/dL Estimated Creat Clear 16.16 Estimated GFR 11 ml/min Glucose 105 (60-115) mg/dL Lactate 1.7 (0.5-1.9) mmol/L Calcium 8.4 (8.4-10.6) mg/dL Magnesium 2.2 (1.5-2.6) mg/dL Total Bilirubin 1.5 (0.1-1.5) mg/dL AST 34 (12-35) U/L ALT 24 (4-50) U/L Alkaline Phosphatase 49 (40-150) U/L Total Creatine Kinase 231 H (54-186) U/L Troponin I 0.26 H* (0.01-0.04) ng/mL NT-Pro-B Natriuret Pep 3500 pg/mL Total Protein 6.6 (6.0-8.3) g/dL Albumin 3.9 (3.3-5.0) g/dL Urine Color Brown A (Yellow) Urine Appearance Cloudy A (Clear) Urine pH 5.5 (5.0-8.5) Ur Specific [place] >= 1.030 (1.000-1.030) Urine Protein 2+ A (Negative) Urine Glucose (UA) Negative (Negative) Urine Ketones Trace A (Negative) Urine Blood Trace-intact A (Negative) Urine Nitrite Negative (Negative) Urine Bilirubin 2+ A (Negative) Urine Urobilinogen 1.0 (0.2-1.0) Ur Leukocyte Esterase Negative (Negative) Urine RBC 2-5 A (0-2) Urine WBC 5-10 A (0-5) Ur Squamous Epith Cells Few (None-Few) Amorphous Sediment Moderate A (None) Urine Bacteria Few A (None) Urine Mucus Few A (None) Urine Opiates Screen Negative (Negative) Ur Oxycodone Screen Negative (Negative) Urine Methadone Screen Negative (Negative) Ur Propoxyphene Screen Negative (Negative) Ur Barbiturates Screen Negative (Negative) U Tricyclic Antidepress POSITIVE A (Negative) Ur Phencyclidine Scrn Negative (Negative) Ur Amphetamines Screen POSITIVE A (Negative) U Methamphetamines Scrn POSITIVE A (Negative) U Benzodiazepines Scrn POSITIVE A (Negative) Urine Cocaine Screen Negative (Negative) U Marijuana (THC) Screen POSITIVE A (Negative) Ur Drug Screen Comment See Note Ethyl Alcohol < 0.01 L (0.01-0.03) % SARS-CoV-2 (PCR) (Negative) Influenza Type A (PCR) (Negative) Influenza Type B (PCR) (Negative) RSV (PCR) (Negative) Lab Acknowledgement POC Creatinine 6.7 H (0.6-1.3) mg/dl 03/11/23 03/11/23 03/11/23 Range/Units 19:08 21:45 21:46 WBC (4.50-11.00) K/uL RBC (4.30-5.90) m/uL Hgb (13.5-17.5) gm/dL Hct (37.0-53.0) % MCV (80-100) fL MCH (26-34) pg MCHC (32-36) gm/dL RDW Coeff of Negro (11.5-15.5) % Plt Count (140-440) K/uL Neut % (Auto) (42.0-72.0) % Lymph % (Auto) (20-44) % [place] % (Auto) (0.0-11.0) % Eos % (Auto) (0.0-7.0) % Baso % (Auto) (0.0-3.0) % Neut # (Auto) (1.7-7.0) K/uL Lymph # (Auto) (0.90-2.90) K/uL [place] # (Auto) (0.00-0.90) K/UL Eos # (Auto) (0.00-0.50) K/uL Baso # (Auto) (0.00-0.30) K/uL Abs Immat Gran (auto) (0.00-0.30) K/uL Imm/Tot Granulo (auto) % D-Dimer Quant (PE/DVT) (0.00-0.50) ug/ml Sodium (135-149) mmol/L Potassium (3.6-5.1) mmol/L Chloride (96-114) mmol/L Carbon Dioxide (20-32) mmol/L Anion Gap (7-15) mEq/L BUN (7-30) mg/dL Creatinine (0.5-1.5) mg/dL Estimated Creat Clear Estimated GFR ml/min Glucose (60-115) mg/dL Lactate (0.5-1.9) mmol/L Calcium (8.4-10.6) mg/dL Magnesium (1.5-2.6) mg/dL Total Bilirubin (0.1-1.5) mg/dL AST (12-35) U/L ALT (4-50) U/L Alkaline Phosphatase (40-150) U/L Total Creatine Kinase (54-186) U/L Troponin I Cancelled (0.01-0.04) ng/mL NT-Pro-B Natriuret Pep pg/mL Total Protein (6.0-8.3) g/dL Albumin (3.3-5.0) g/dL Urine Color (Yellow) Urine Appearance (Clear) Urine pH (5.0-8.5) Ur Specific [place] (1.000-1.030) Urine Protein (Negative) Urine Glucose (UA) (Negative) Urine Ketones (Negative) Urine Blood (Negative) Urine Nitrite (Negative) Urine Bilirubin (Negative) Urine Urobilinogen (0.2-1.0) Ur Leukocyte Esterase (Negative) Urine RBC (0-2) Urine WBC (0-5) Ur Squamous Epith Cells (None-Few) Amorphous Sediment (None) Urine Bacteria (None) Urine Mucus (None) Urine Opiates Screen (Negative) Ur Oxycodone Screen (Negative) Urine Methadone Screen (Negative) Ur Propoxyphene Screen (Negative) Ur Barbiturates Screen (Negative) U Tricyclic Antidepress (Negative) Ur Phencyclidine Scrn (Negative) Ur Amphetamines Screen (Negative) U Methamphetamines Scrn (Negative) U Benzodiazepines Scrn (Negative) Urine Cocaine Screen (Negative) U Marijuana (THC) Screen (Negative) Ur Drug Screen Comment Ethyl Alcohol (0.01-0.03) % SARS-CoV-2 (PCR) Negative SARS-CoV-2 (Negative) Influenza Type A (PCR) Negative PCR FLU A (Negative) Influenza Type B (PCR) Negative PCR FLU B (Negative) RSV (PCR) Negative PCR RSV (Negative) Lab Acknowledgement Test Added POC Creatinine (0.6-1.3) mg/dl 03/11/23 03/12/23 03/12/23 Range/Units 23:05 06:30 12:56 WBC 9.00 (4.50-11.00) K/uL RBC 4.90 (4.30-5.90) m/uL Hgb 15.6 (13.5-17.5) gm/dL Hct 46.7 (37.0-53.0) % MCV 95 (80-100) fL MCH 32 (26-34) pg MCHC 33 (32-36) gm/dL RDW Coeff of Negro 13.7 (11.5-15.5) % Plt Count 127 L (140-440) K/uL Neut % (Auto) 73.1 H (42.0-72.0) % Lymph % (Auto) 12.3 L (20-44) % [place] % (Auto) 12.0 H (0.0-11.0) % Eos % (Auto) 2.0 (0.0-7.0) % Baso % (Auto) 0.3 (0.0-3.0) % Neut # (Auto) 6.60 (1.7-7.0) K/uL Lymph # (Auto) 1.10 (0.90-2.90) K/uL [place] # (Auto) 1.10 H (0.00-0.90) K/UL Eos # (Auto) 0.18 (0.00-0.50) K/uL Baso # (Auto) 0.03 (0.00-0.30) K/uL Abs Immat Gran (auto) 0.03 (0.00-0.30) K/uL Imm/Tot Granulo (auto) 0.3 % D-Dimer Quant (PE/DVT) (0.00-0.50) ug/ml Sodium 136 138 138 (135-149) mmol/L Potassium 3.3 L 3.1 L 3.1 L (3.6-5.1) mmol/L Chloride 101 103 107 (96-114) mmol/L Carbon Dioxide 26 25 26 (20-32) mmol/L Anion Gap 9 10 5 L (7-15) mEq/L BUN 48 H 50 H 42 H (7-30) mg/dL Creatinine 5.0 H 4.9 H 3.6 H (0.5-1.5) mg/dL Estimated Creat Clear 18.42 18.80 25.59 Estimated GFR 13 13 19 ml/min Glucose 83 83 95 (60-115) mg/dL Lactate 0.7 (0.5-1.9) mmol/L Calcium 7.7 L 7.9 L 8.1 L (8.4-10.6) mg/dL Magnesium (1.5-2.6) mg/dL Total Bilirubin 0.4 (0.1-1.5) mg/dL AST 41 H (12-35) U/L ALT 27 (4-50) U/L Alkaline Phosphatase 57 (40-150) U/L Total Creatine Kinase (54-186) U/L Troponin I 0.33 H* (0.01-0.04) ng/mL NT-Pro-B Natriuret Pep pg/mL Total Protein 5.8 L (6.0-8.3) g/dL Albumin 3.1 L (3.3-5.0) g/dL Urine Color (Yellow) Urine Appearance (Clear) Urine pH (5.0-8.5) Ur Specific [place] (1.000-1.030) Urine Protein (Negative) Urine Glucose (UA) (Negative) Urine Ketones (Negative) Urine Blood (Negative) Urine Nitrite (Negative) Urine Bilirubin (Negative) Urine Urobilinogen (0.2-1.0) Ur Leukocyte Esterase (Negative) Urine RBC (0-2) Urine WBC (0-5) Ur Squamous Epith Cells (None-Few) Amorphous Sediment (None) Urine Bacteria (None) Urine Mucus (None) Urine Opiates Screen (Negative) Ur Oxycodone Screen (Negative) Urine Methadone Screen (Negative) Ur Propoxyphene Screen (Negative) Ur Barbiturates Screen (Negative) U Tricyclic Antidepress (Negative) Ur Phencyclidine Scrn (Negative) Ur Amphetamines Screen (Negative) U Methamphetamines Scrn (Negative) U Benzodiazepines Scrn (Negative) Urine Cocaine Screen (Negative) U Marijuana (THC) Screen (Negative) Ur Drug Screen Comment Ethyl Alcohol (0.01-0.03) % SARS-CoV-2 (PCR) (Negative) Influenza Type A (PCR) (Negative) Influenza Type B (PCR) (Negative) RSV (PCR) (Negative) Lab Acknowledgement POC Creatinine (0.6-1.3) mg/dl <Salvatore Jorge, DO - Last Filed: 03/13/23 13:54> Lab Results 03/11/23 03/11/23 03/11/23 Range/Units 18:09 18:10 19:00 WBC 10.69 (4.50-11.00) K/uL RBC 5.50 (4.30-5.90) m/uL Hgb 17.4 (13.5-17.5) gm/dL Hct 51.9 (37.0-53.0) % MCV 94 (80-100) fL MCH 32 (26-34) pg MCHC 34 (32-36) gm/dL RDW Coeff of Negro 13.8 (11.5-15.5) % Plt Count 146 (140-440) K/uL Neut % (Auto) 80.3 H (42.0-72.0) % Lymph % (Auto) 8.1 L (20-44) % [place] % (Auto) 10.6 (0.0-11.0) % Eos % (Auto) 0.5 (0.0-7.0) % Baso % (Auto) 0.3 (0.0-3.0) % Neut # (Auto) 8.60 H (1.7-7.0) K/uL Lymph # (Auto) 0.90 (0.90-2.90) K/uL [place] # (Auto) 1.10 H (0.00-0.90) K/UL Eos # (Auto) 0.05 (0.00-0.50) K/uL Baso # (Auto) 0.03 (0.00-0.30) K/uL Abs Immat Gran (auto) 0.02 (0.00-0.30) K/uL Imm/Tot Granulo (auto) 0.2 % D-Dimer Quant (PE/DVT) 0.38 (0.00-0.50) ug/ml Sodium 135 (135-149) mmol/L Potassium 3.1 L (3.6-5.1) mmol/L Chloride 95 L (96-114) mmol/L Carbon Dioxide 29 (20-32) mmol/L Anion Gap 11 (7-15) mEq/L BUN 50 H (7-30) mg/dL Creatinine 5.7 H (0.5-1.5) mg/dL Estimated Creat Clear 16.16 Estimated GFR 11 ml/min Glucose 105 (60-115) mg/dL Lactate 1.7 (0.5-1.9) mmol/L Calcium 8.4 (8.4-10.6) mg/dL Magnesium 2.2 (1.5-2.6) mg/dL Total Bilirubin 1.5 (0.1-1.5) mg/dL AST 34 (12-35) U/L ALT 24 (4-50) U/L Alkaline Phosphatase 49 (40-150) U/L Total Creatine Kinase 231 H (54-186) U/L Troponin I 0.26 H* (0.01-0.04) ng/mL NT-Pro-B Natriuret Pep 3500 pg/mL Total Protein 6.6 (6.0-8.3) g/dL Albumin 3.9 (3.3-5.0) g/dL Urine Color Brown A (Yellow) Urine Appearance Cloudy A (Clear) Urine pH 5.5 (5.0-8.5) Ur Specific [place] >= 1.030 (1.000-1.030) Urine Protein 2+ A (Negative) Urine Glucose (UA) Negative (Negative) Urine Ketones Trace A (Negative) Urine Blood Trace-intact A (Negative) Urine Nitrite Negative (Negative) Urine Bilirubin 2+ A (Negative) Urine Urobilinogen 1.0 (0.2-1.0) Ur Leukocyte Esterase Negative (Negative) Urine RBC 2-5 A (0-2) Urine WBC 5-10 A (0-5) Ur Squamous Epith Cells Few (None-Few) Amorphous Sediment Moderate A (None) Urine Bacteria Few A (None) Urine Mucus Few A (None) Urine Opiates Screen Negative (Negative) Ur Oxycodone Screen Negative (Negative) Urine Methadone Screen Negative (Negative) Ur Propoxyphene Screen Negative (Negative) Ur Barbiturates Screen Negative (Negative) U Tricyclic Antidepress POSITIVE A (Negative) Ur Phencyclidine Scrn Negative (Negative) Ur Amphetamines Screen POSITIVE A (Negative) U Methamphetamines Scrn POSITIVE A (Negative) U Benzodiazepines Scrn POSITIVE A (Negative) Urine Cocaine Screen Negative (Negative) U Marijuana (THC) Screen POSITIVE A (Negative) Ur Drug Screen Comment See Note Ethyl Alcohol < 0.01 L (0.01-0.03) % SARS-CoV-2 (PCR) (Negative) Influenza Type A (PCR) (Negative) Influenza Type B (PCR) (Negative) RSV (PCR) (Negative) Lab Acknowledgement POC Creatinine 6.7 H (0.6-1.3) mg/dl 03/11/23 03/11/23 03/11/23 Range/Units 19:08 21:45 21:46 WBC (4.50-11.00) K/uL RBC (4.30-5.90) m/uL Hgb (13.5-17.5) gm/dL Hct (37.0-53.0) % MCV (80-100) fL MCH (26-34) pg MCHC (32-36) gm/dL RDW Coeff of [place] (11.5-15.5) % Plt Count (140-440) K/uL Neut % (Auto) (42.0-72.0) % Lymph % (Auto) (20-44) % [place] % (Auto) (0.0-11.0) % Eos % (Auto) (0.0-7.0) % Baso % (Auto) (0.0-3.0) % Neut # (Auto) (1.7-7.0) K/uL Lymph # (Auto) (0.90-2.90) K/uL [place] # (Auto) (0.00-0.90) K/UL Eos # (Auto) (0.00-0.50) K/uL Baso # (Auto) (0.00-0.30) K/uL Abs Immat Gran (auto) (0.00-0.30) K/uL Imm/Tot Granulo (auto) % D-Dimer Quant (PE/DVT) (0.00-0.50) ug/ml Sodium (135-149) mmol/L Potassium (3.6-5.1) mmol/L Chloride (96-114) mmol/L Carbon Dioxide (20-32) mmol/L Anion Gap (7-15) mEq/L BUN (7-30) mg/dL Creatinine (0.5-1.5) mg/dL Estimated Creat Clear Estimated GFR ml/min Glucose (60-115) mg/dL Lactate (0.5-1.9) mmol/L Calcium (8.4-10.6) mg/dL Magnesium (1.5-2.6) mg/dL Total Bilirubin (0.1-1.5) mg/dL AST (12-35) U/L ALT (4-50) U/L Alkaline Phosphatase (40-150) U/L Total Creatine Kinase (54-186) U/L Troponin I Cancelled (0.01-0.04) ng/mL NT-Pro-B Natriuret Pep pg/mL Total Protein (6.0-8.3) g/dL Albumin (3.3-5.0) g/dL Urine Color (Yellow) Urine Appearance (Clear) Urine pH (5.0-8.5) Ur Specific [place] (1.000-1.030) Urine Protein (Negative) Urine Glucose (UA) (Negative) Urine Ketones (Negative) Urine Blood (Negative) Urine Nitrite (Negative) Urine Bilirubin (Negative) Urine Urobilinogen (0.2-1.0) Ur Leukocyte Esterase (Negative) Urine RBC (0-2) Urine WBC (0-5) Ur Squamous Epith Cells (None-Few) Amorphous Sediment (None) Urine Bacteria (None) Urine Mucus (None) Urine Opiates Screen (Negative) Ur Oxycodone Screen (Negative) Urine Methadone Screen (Negative) Ur Propoxyphene Screen (Negative) Ur Barbiturates Screen (Negative) U Tricyclic Antidepress (Negative) Ur Phencyclidine Scrn (Negative) Ur Amphetamines Screen (Negative) U Methamphetamines Scrn (Negative) U Benzodiazepines Scrn (Negative) Urine Cocaine Screen (Negative) U Marijuana (THC) Screen (Negative) Ur Drug Screen Comment Ethyl Alcohol (0.01-0.03) % SARS-CoV-2 (PCR) Negative SARS-CoV-2 (Negative) Influenza Type A (PCR) Negative PCR FLU A (Negative) Influenza Type B (PCR) Negative PCR FLU B (Negative) RSV (PCR) Negative PCR RSV (Negative) Lab Acknowledgement Test Added POC Creatinine (0.6-1.3) mg/dl 03/11/23 03/12/23 03/12/23 Range/Units 23:05 06:30 12:56 WBC 9.00 (4.50-11.00) K/uL RBC 4.90 (4.30-5.90) m/uL Hgb 15.6 (13.5-17.5) gm/dL Hct 46.7 (37.0-53.0) % MCV 95 (80-100) fL MCH 32 (26-34) pg MCHC 33 (32-36) gm/dL RDW Coeff of Negro 13.7 (11.5-15.5) % Plt Count 127 L (140-440) K/uL Neut % (Auto) 73.1 H (42.0-72.0) % Lymph % (Auto) 12.3 L (20-44) % [place] % (Auto) 12.0 H (0.0-11.0) % Eos % (Auto) 2.0 (0.0-7.0) % Baso % (Auto) 0.3 (0.0-3.0) % Neut # (Auto) 6.60 (1.7-7.0) K/uL Lymph # (Auto) 1.10 (0.90-2.90) K/uL [place] # (Auto) 1.10 H (0.00-0.90) K/UL Eos # (Auto) 0.18 (0.00-0.50) K/uL Baso # (Auto) 0.03 (0.00-0.30) K/uL Abs Immat Gran (auto) 0.03 (0.00-0.30) K/uL Imm/Tot Granulo (auto) 0.3 % D-Dimer Quant (PE/DVT) (0.00-0.50) ug/ml Sodium 136 138 138 (135-149) mmol/L Potassium 3.3 L 3.1 L 3.1 L (3.6-5.1) mmol/L Chloride 101 103 107 (96-114) mmol/L Carbon Dioxide 26 25 26 (20-32) mmol/L Anion Gap 9 10 5 L (7-15) mEq/L BUN 48 H 50 H 42 H (7-30) mg/dL Creatinine 5.0 H 4.9 H 3.6 H (0.5-1.5) mg/dL Estimated Creat Clear 18.42 18.80 25.59 Estimated GFR 13 13 19 ml/min Glucose 83 83 95 (60-115) mg/dL Lactate 0.7 (0.5-1.9) mmol/L Calcium 7.7 L 7.9 L 8.1 L (8.4-10.6) mg/dL Magnesium (1.5-2.6) mg/dL Total Bilirubin 0.4 (0.1-1.5) mg/dL AST 41 H (12-35) U/L ALT 27 (4-50) U/L Alkaline Phosphatase 57 (40-150) U/L Total Creatine Kinase (54-186) U/L Troponin I 0.33 H* (0.01-0.04) ng/mL NT-Pro-B Natriuret Pep pg/mL Total Protein 5.8 L (6.0-8.3) g/dL Albumin 3.1 L (3.3-5.0) g/dL Urine Color (Yellow) Urine Appearance (Clear) Urine pH (5.0-8.5) Ur Specific [place] (1.000-1.030) Urine Protein (Negative) Urine Glucose (UA) (Negative) Urine Ketones (Negative) Urine Blood (Negative) Urine Nitrite (Negative) Urine Bilirubin (Negative) Urine Urobilinogen (0.2-1.0) Ur Leukocyte Esterase (Negative) Urine RBC (0-2) Urine WBC (0-5) Ur Squamous Epith Cells (None-Few) Amorphous Sediment (None) Urine Bacteria (None) Urine Mucus (None) Urine Opiates Screen (Negative) Ur Oxycodone Screen (Negative) Urine Methadone Screen (Negative) Ur Propoxyphene Screen (Negative) Ur Barbiturates Screen (Negative) U Tricyclic Antidepress (Negative) Ur Phencyclidine Scrn (Negative) Ur Amphetamines Screen (Negative) U Methamphetamines Scrn (Negative) U Benzodiazepines Scrn (Negative) Urine Cocaine Screen (Negative) U Marijuana (THC) Screen (Negative) Ur Drug Screen Comment Ethyl Alcohol (0.01-0.03) % SARS-CoV-2 (PCR) (Negative) Influenza Type A (PCR) (Negative) Influenza Type B (PCR) (Negative) RSV (PCR) (Negative) Lab Acknowledgement POC Creatinine (0.6-1.3) mg/dl <Padmaja Butler MD - Last Filed: 03/15/23 00:05> Lab Results 03/11/23 03/11/23 03/11/23 Range/Units 18:09 18:10 19:00 WBC 10.69 (4.50-11.00) K/uL RBC 5.50 (4.30-5.90) m/uL Hgb 17.4 (13.5-17.5) gm/dL Hct 51.9 (37.0-53.0) % MCV 94 (80-100) fL MCH 32 (26-34) pg MCHC 34 (32-36) gm/dL RDW Coeff of Negro 13.8 (11.5-15.5) % Plt Count 146 (140-440) K/uL Neut % (Auto) 80.3 H (42.0-72.0) % Lymph % (Auto) 8.1 L (20-44) % [place] % (Auto) 10.6 (0.0-11.0) % Eos % (Auto) 0.5 (0.0-7.0) % Baso % (Auto) 0.3 (0.0-3.0) % Neut # (Auto) 8.60 H (1.7-7.0) K/uL Lymph # (Auto) 0.90 (0.90-2.90) K/uL [place] # (Auto) 1.10 H (0.00-0.90) K/UL Eos # (Auto) 0.05 (0.00-0.50) K/uL Baso # (Auto) 0.03 (0.00-0.30) K/uL Abs Immat Gran (auto) 0.02 (0.00-0.30) K/uL Imm/Tot Granulo (auto) 0.2 % D-Dimer Quant (PE/DVT) 0.38 (0.00-0.50) ug/ml Sodium 135 (135-149) mmol/L Potassium 3.1 L (3.6-5.1) mmol/L Chloride 95 L (96-114) mmol/L Carbon Dioxide 29 (20-32) mmol/L Anion Gap 11 (7-15) mEq/L BUN 50 H (7-30) mg/dL Creatinine 5.7 H (0.5-1.5) mg/dL Estimated Creat Clear 16.16 Estimated GFR 11 ml/min Glucose 105 (60-115) mg/dL Lactate 1.7 (0.5-1.9) mmol/L Calcium 8.4 (8.4-10.6) mg/dL Magnesium 2.2 (1.5-2.6) mg/dL Total Bilirubin 1.5 (0.1-1.5) mg/dL AST 34 (12-35) U/L ALT 24 (4-50) U/L Alkaline Phosphatase 49 (40-150) U/L Total Creatine Kinase 231 H (54-186) U/L Troponin I 0.26 H* (0.01-0.04) ng/mL NT-Pro-B Natriuret Pep 3500 pg/mL Total Protein 6.6 (6.0-8.3) g/dL Albumin 3.9 (3.3-5.0) g/dL Urine Color Brown A (Yellow) Urine Appearance Cloudy A (Clear) Urine pH 5.5 (5.0-8.5) Ur Specific [place] >= 1.030 (1.000-1.030) Urine Protein 2+ A (Negative) Urine Glucose (UA) Negative (Negative) Urine Ketones Trace A (Negative) Urine Blood Trace-intact A (Negative) Urine Nitrite Negative (Negative) Urine Bilirubin 2+ A (Negative) Urine Urobilinogen 1.0 (0.2-1.0) Ur Leukocyte Esterase Negative (Negative) Urine RBC 2-5 A (0-2) Urine WBC 5-10 A (0-5) Ur Squamous Epith Cells Few (None-Few) Amorphous Sediment Moderate A (None) Urine Bacteria Few A (None) Urine Mucus Few A (None) Urine Opiates Screen Negative (Negative) Ur Oxycodone Screen Negative (Negative) Urine Methadone Screen Negative (Negative) Ur Propoxyphene Screen Negative (Negative) Ur Barbiturates Screen Negative (Negative) U Tricyclic Antidepress POSITIVE A (Negative) Ur Phencyclidine Scrn Negative (Negative) Ur Amphetamines Screen POSITIVE A (Negative) U Methamphetamines Scrn POSITIVE A (Negative) U Benzodiazepines Scrn POSITIVE A (Negative) Urine Cocaine Screen Negative (Negative) U Marijuana (THC) Screen POSITIVE A (Negative) Ur Drug Screen Comment See Note Ethyl Alcohol < 0.01 L (0.01-0.03) % SARS-CoV-2 (PCR) (Negative) Influenza Type A (PCR) (Negative) Influenza Type B (PCR) (Negative) RSV (PCR) (Negative) Lab Acknowledgement POC Creatinine 6.7 H (0.6-1.3) mg/dl 03/11/23 03/11/23 03/11/23 Range/Units 19:08 21:45 21:46 WBC (4.50-11.00) K/uL RBC (4.30-5.90) m/uL Hgb (13.5-17.5) gm/dL Hct (37.0-53.0) % MCV (80-100) fL MCH (26-34) pg MCHC (32-36) gm/dL RDW Coeff of Negro (11.5-15.5) % Plt Count (140-440) K/uL Neut % (Auto) (42.0-72.0) % Lymph % (Auto) (20-44) % [place] % (Auto) (0.0-11.0) % Eos % (Auto) (0.0-7.0) % Baso % (Auto) (0.0-3.0) % Neut # (Auto) (1.7-7.0) K/uL Lymph # (Auto) (0.90-2.90) K/uL [place] # (Auto) (0.00-0.90) K/UL Eos # (Auto) (0.00-0.50) K/uL Baso # (Auto) (0.00-0.30) K/uL Abs Immat Gran (auto) (0.00-0.30) K/uL Imm/Tot Granulo (auto) % D-Dimer Quant (PE/DVT) (0.00-0.50) ug/ml Sodium (135-149) mmol/L Potassium (3.6-5.1) mmol/L Chloride (96-114) mmol/L Carbon Dioxide (20-32) mmol/L Anion Gap (7-15) mEq/L BUN (7-30) mg/dL Creatinine (0.5-1.5) mg/dL Estimated Creat Clear Estimated GFR ml/min Glucose (60-115) mg/dL Lactate (0.5-1.9) mmol/L Calcium (8.4-10.6) mg/dL Magnesium (1.5-2.6) mg/dL Total Bilirubin (0.1-1.5) mg/dL AST (12-35) U/L ALT (4-50) U/L Alkaline Phosphatase (40-150) U/L Total Creatine Kinase (54-186) U/L Troponin I Cancelled (0.01-0.04) ng/mL NT-Pro-B Natriuret Pep pg/mL Total Protein (6.0-8.3) g/dL Albumin (3.3-5.0) g/dL Urine Color (Yellow) Urine Appearance (Clear) Urine pH (5.0-8.5) Ur Specific [place] (1.000-1.030) Urine Protein (Negative) Urine Glucose (UA) (Negative) Urine Ketones (Negative) Urine Blood (Negative) Urine Nitrite (Negative) Urine Bilirubin (Negative) Urine Urobilinogen (0.2-1.0) Ur Leukocyte Esterase (Negative) Urine RBC (0-2) Urine WBC (0-5) Ur Squamous Epith Cells (None-Few) Amorphous Sediment (None) Urine Bacteria (None) Urine Mucus (None) Urine Opiates Screen (Negative) Ur Oxycodone Screen (Negative) Urine Methadone Screen (Negative) Ur Propoxyphene Screen (Negative) Ur Barbiturates Screen (Negative) U Tricyclic Antidepress (Negative) Ur Phencyclidine Scrn (Negative) Ur Amphetamines Screen (Negative) U Methamphetamines Scrn (Negative) U Benzodiazepines Scrn (Negative) Urine Cocaine Screen (Negative) U Marijuana (THC) Screen (Negative) Ur Drug Screen Comment Ethyl Alcohol (0.01-0.03) % SARS-CoV-2 (PCR) Negative SARS-CoV-2 (Negative) Influenza Type A (PCR) Negative PCR FLU A (Negative) Influenza Type B (PCR) Negative PCR FLU B (Negative) RSV (PCR) Negative PCR RSV (Negative) Lab Acknowledgement Test Added POC Creatinine (0.6-1.3) mg/dl 03/11/23 03/12/23 03/12/23 Range/Units 23:05 06:30 12:56 WBC 9.00 (4.50-11.00) K/uL RBC 4.90 (4.30-5.90) m/uL Hgb 15.6 (13.5-17.5) gm/dL Hct 46.7 (37.0-53.0) % MCV 95 (80-100) fL MCH 32 (26-34) pg MCHC 33 (32-36) gm/dL RDW Coeff of Negro 13.7 (11.5-15.5) % Plt Count 127 L (140-440) K/uL Neut % (Auto) 73.1 H (42.0-72.0) % Lymph % (Auto) 12.3 L (20-44) % [place] % (Auto) 12.0 H (0.0-11.0) % Eos % (Auto) 2.0 (0.0-7.0) % Baso % (Auto) 0.3 (0.0-3.0) % Neut # (Auto) 6.60 (1.7-7.0) K/uL Lymph # (Auto) 1.10 (0.90-2.90) K/uL [place] # (Auto) 1.10 H (0.00-0.90) K/UL Eos # (Auto) 0.18 (0.00-0.50) K/uL Baso # (Auto) 0.03 (0.00-0.30) K/uL Abs Immat Gran (auto) 0.03 (0.00-0.30) K/uL Imm/Tot Granulo (auto) 0.3 % D-Dimer Quant (PE/DVT) (0.00-0.50) ug/ml Sodium 136 138 138 (135-149) mmol/L Potassium 3.3 L 3.1 L 3.1 L (3.6-5.1) mmol/L Chloride 101 103 107 (96-114) mmol/L Carbon Dioxide 26 25 26 (20-32) mmol/L Anion Gap 9 10 5 L (7-15) mEq/L BUN 48 H 50 H 42 H (7-30) mg/dL Creatinine 5.0 H 4.9 H 3.6 H (0.5-1.5) mg/dL Estimated Creat Clear 18.42 18.80 25.59 Estimated GFR 13 13 19 ml/min Glucose 83 83 95 (60-115) mg/dL Lactate 0.7 (0.5-1.9) mmol/L Calcium 7.7 L 7.9 L 8.1 L (8.4-10.6) mg/dL Magnesium (1.5-2.6) mg/dL Total Bilirubin 0.4 (0.1-1.5) mg/dL AST 41 H (12-35) U/L ALT 27 (4-50) U/L Alkaline Phosphatase 57 (40-150) U/L Total Creatine Kinase (54-186) U/L Troponin I 0.33 H* (0.01-0.04) ng/mL NT-Pro-B Natriuret Pep pg/mL Total Protein 5.8 L (6.0-8.3) g/dL Albumin 3.1 L (3.3-5.0) g/dL Urine Color (Yellow) Urine Appearance (Clear) Urine pH (5.0-8.5) Ur Specific [place] (1.000-1.030) Urine Protein (Negative) Urine Glucose (UA) (Negative) Urine Ketones (Negative) Urine Blood (Negative) Urine Nitrite (Negative) Urine Bilirubin (Negative) Urine Urobilinogen (0.2-1.0) Ur Leukocyte Esterase (Negative) Urine RBC (0-2) Urine WBC (0-5) Ur Squamous Epith Cells (None-Few) Amorphous Sediment (None) Urine Bacteria (None) Urine Mucus (None) Urine Opiates Screen (Negative) Ur Oxycodone Screen (Negative) Urine Methadone Screen (Negative) Ur Propoxyphene Screen (Negative) Ur Barbiturates Screen (Negative) U Tricyclic Antidepress (Negative) Ur Phencyclidine Scrn (Negative) Ur Amphetamines Screen (Negative) U Methamphetamines Scrn (Negative) U Benzodiazepines Scrn (Negative) Urine Cocaine Screen (Negative) U Marijuana (THC) Screen (Negative) Ur Drug Screen Comment Ethyl Alcohol (0.01-0.03) % SARS-CoV-2 (PCR) (Negative) Influenza Type A (PCR) (Negative) Influenza Type B (PCR) (Negative) RSV (PCR) (Negative) Lab Acknowledgement POC Creatinine (0.6-1.3) mg/dl <Ángel Castañeda MD - Last Filed: 03/12/23 13:10> Imaging Data Chest x-ray: Radiologist's impression: 1. Interval placement of a right-sided central venous catheter with tip terminating in the region of the inferior SVC. No complications. Mild pulmonary vascular congestion. Dictated by Papo Alberto MD @ 03/11/2023 8:18:41 PM <Salvatore Jorge DO - Last Filed: 03/13/23 13:54> CT scan - head: Radiologist's impression: No CT evidence of acute intracranial abnormality or closed-head injury. Please note that all CT scans at this facility use dose modulation, iterative reconstruction, and/or weight-based dosing when appropriate to reduce radiation dose to as low as reasonably achievable. Dictated by Murali Campbell MD @ 03/11/2023 9:36:38 PM <Salvatore Jorge DO - Last Filed: 03/13/23 13:54> CT Chest/Ab/Pelvis: Radiologist's impression: 1. No acute process involving the chest, abdomen or pelvis. Please note that all CT scans at this facility use dose modulation, iterative reconstruction, and/or weight-based dosing when appropriate to reduce radiation dose to as low as reasonably achievable. Dictated by Papo Alberto MD @ 03/11/2023 9:28:07 PM <DO Ashley Peterson Last Fi led: 03/13/23 13:54> CT scans cervical spine: Radiologist's impression: No acute displaced fracture or traumatic malalignment of the cervical spine. Please note that all CT scans at this facility use dose modulation, iterative reconstruction, and/or weight-based dosing when appropriate to reduce radiation dose to as low as reasonably achievable. Dictated by Murali Campbell MD @ 03/11/2023 9:42:11 PM <Salvatore Jorge DO - Last Filed: 03/13/23 13:54> ECG Data Attestation: I personally reviewed and interpreted this ECG as follows: <Salvatore Jorge DO Last Filed: 03/13/23 13:54> Prior ECG tracings: not available for review <Salvatore Jorge DO Last Filed: 03/13/23 13:54> Interpretation: Normal sinus rhythm with a rate of 76 beats per minute, diffuse T-wave inversions, does appear to have a prolonged QT. this is new compared to his previous EKGs <Salvatore Jorge DO - Last Filed: 03/13/23 13:54> Critical Care Time Critical Care Time Critical Care Time: Yes Attestation: The patient required my highest level preparedness to intervene emergently and I personally spent this critical care time directly and personally managing the patient. This critical care time included: Obtaining a history; Examining the patient; Pulse oximetry; Ordering and reviewing of studies; Arranging urgent treatment with development of a management plan; Evaluation of patients response to treatment; Frequent reassessment discussions with other providers. This critical care time was performed to assess and manage the high probability of imminent life-threatening deterioration that could result in multiorgan failure. It was exclusive of separate billable procedures and treating other patients and teaching time. <DO Ashley Peterson Last Filed: 03/13/23 13:54> Total Critical Care Time in Minutes: 52 <Salvatore Jorge DO Last Filed: 03/13/23 13:54> Discharge Plan Discharge Clinical Impression: Dehydration, Acute hypotension Acute renal failure Qualifiers: Acute renal failure type: unspecified Qualified Code(s): N17.9 - Acute kidney failure, unspecified <Salvatore Jorge DO - Last Filed: 03/13/23 13:54> Patient Disposition: Admitted As Observation <Salvatore Jorge DO - Last Filed: 03/13/23 13:54> Condition: Improved <Salvatore Jorge DO - Last Filed: 03/13/23 13:54> Activity Level: No Restrictions <Salvatore Jorge DO - Last Filed: 03/13/23 13:54> No Restrictions <Padmaja Butler MD - Last Filed: 03/15/23 00:05> No Restrictions <Ángel Castañeda MD - Last Filed: 03/12/23 13:10> Discharge Diet: Low Fat/Low Cholesterol <Salvatore Jorge DO - Last Filed: 03/13/23 13:54> Low Fat/Low Cholesterol <Padmaja Butler MD - Last Filed: 03/15/23 00:05> Low Fat/Low Cholesterol <Ángel Castañeda MD - Last Filed: 03/12/23 13:10> Procedures Central Line Placement Right IJ: Written consent by: patient <Salvatore Jorge DO - Last Filed: 03/13/23 13:54> Site marking: site marked <Salvatore Jorge DO - Last Filed: 03/13/23 13:54> Name of person performing procedure: Salvatore Jorge <Salvatore Jorge DO - Last Filed: 03/13/23 13:54> Anesthesia: lidocaine 1% <Salvatore Jorge DO - Last Filed: 03/13/23 13:54> Amount of anesthesia used (mL): 3 <Salvatore Jorge DO - Last Filed: 03/13/23 13:54> Patient Placed on Monitor/Pulse Ox: Yes <Salvatore Jorge DO - Last Filed: 03/13/23 13:54> MD Prep: mask, gown and gloves <Salvatore Jorge DO - Last Filed: 03/13/23 13:54> Central Line Prep: Chlorhexidine scrub <Salvatore Jorge DO - Last Filed: 03/13/23 13:54> Ultrasound Used for Placement: Yes <Salvatore Jorge DO - Last Filed: 03/13/23 13:54> Central Line Lumen Inserted: triple <Salvatore Jorge DO - Last Filed: 03/13/23 13:54> Post Procedure: sutured in place, good blood return, all ports aspirated, flushed, capped and sterile dressing applied <Salvatore Jorge DO - Last Filed: 03/13/23 13:54> Post Procedure X-Ray: tip of catheter in good position and no pneumothorax seen <Salvatore Jorge DO - Last Filed: 03/13/23 13:54> Estimated blood loss (if any): none <Salvatore Jorge DO - Last Filed: 03/13/23 13:54> Complications: none <Salvatore Jorge DO - Last Filed: 03/13/23 13:54> Patient Tolerated Procedure: well <Salvatore Jorge DO - Last Filed: 03/13/23 13:54>
[2023-03-11 22:09] LABS: Creatine Kinase* 231 U/L (54-186)
[2023-03-11 23:35] LABS: Chloride* 101 mmol/L (96-114); Potassium* 3.3 mmol/L (3.6-5.1); Sodium* 136 mmol/L (135-149)
[2023-03-11 23:37] LABS: Est. Creatinine Clearance* 18.42; Estimated Glomerular Filt Rate 13 ml/min
[2023-03-11 23:38] LABS: Anion Gap 9 mEq/L (7-15); Blood Urea Nitrogen* 48 mg/dL (7-30); Calcium* 7.7 mg/dL (8.4-10.6); Carbon Dioxide* 26 mmol/L (20-32); Glucose* 83 mg/dL (60-115)
--- NOTE | 2023-03-11 23:51 | ED.NURSE ---
Pt wants to take his nighttime meds, Dr. Jorge notified and is reviewing medications at this time.
--- NOTE | 2023-03-11 23:59 | ED.NURSE ---
[facility], [facility], [facility] [place], [facility] contacted for beds, none available for transfer.
[2023-03-12] VITALS (57 sets, daily range): BP systolic 88–165; BP diastolic 53–121; PULSE 73–102; RESP 16–22; TEMP 36.4–36.9; O2SAT 92–98; BMI 27.9
[2023-03-12] MEDS: 0.9 % SODIUM CHLORIDE 1000 ml 1,000 ML 125 ML IV ×3 (00:01→18:33)
[2023-03-12] MEDS: HYDROCODONE-ACETAMIN 5-325 MG 1 TAB 2 TAB PO ×2 (01:23→11:10)
--- NOTE | 2023-03-12 01:55 | ED.NURSE ---
emptied barajas at 0155 for 200cc brownish urine. will continue to monitor urine output. pt. a&ox3. ciwa was 4.
--- NOTE | 2023-03-12 04:10 | ED.NURSE ---
barajas output from 0200 to 0400 is 100cc.
--- NOTE | 2023-03-12 06:30 | CRLHL7_ITS ---
For Patients: As a result of the Century Cures Act, medical imaging exams and procedure reports are released immediately into your electronic medical record. You may view this report before your referring provider. If you have questions, please contact your health care provider. INDICATION: Acute kidney failure TECHNIQUE: Ultrasound renal and bladder complete. Wetzel-scale and color Doppler sonographic images were acquired of the kidneys and urinary bladder. COMPARISON: None FINDINGS: Right Kidney: Size: 13.0 x 5.8 x 6.1 centimeters. Cortical thickness 15 millimeters. Normal echogenicity without hydronephrosis. No masses or nephrolithiasis seen. Left Kidney: Size: 13.7 x 7.1 x 6.0 centimeters. Cortical thickness 20 millimeters. Normal echogenicity without hydronephrosis. No masses or nephrolithiasis seen. Exophytic simple cyst at the mid left kidney measuring 1.5 centimeters. Bladder: Decompressed with Bae catheter. IMPRESSION: Simple left renal cyst measuring 1.5 centimeters, essentially unremarkable renal ultrasound. No evidence of hydronephrosis. Dictated by Cristo Rodas MD @ 03/12/2023 7:43:07 AM (Electronically Signed)
--- NOTE | 2023-03-12 06:41 | ED.NURSE ---
emptied barajas at 0630. 75cc dark brown urine in the last 2 1/2 hours. pt. a&ox4. gcs 15. pt. with no c/o at this time. vitals stable.
[2023-03-12 06:56] LABS: Chloride* 103 mmol/L (96-114)
[2023-03-12 06:57] LABS: Potassium* 3.1 mmol/L (3.6-5.1); Sodium* 138 mmol/L (135-149)
[2023-03-12 07:00] LABS: Anion Gap 10 mEq/L (7-15); Blood Urea Nitrogen* 50 mg/dL (7-30); Calcium* 7.9 mg/dL (8.4-10.6); Carbon Dioxide* 25 mmol/L (20-32); Glucose* 83 mg/dL (60-115)
[2023-03-12 07:03] LABS: Creatinine* 4.9 mg/dL (0.5-1.5); Estimated Glomerular Filt Rate 13 ml/min
[2023-03-12] MEDS: HYDROCODONE-ACETAMIN 5-325 MG 1 TAB PO (08:01)
--- NOTE | 2023-03-12 08:18 | ED.NURSE ---
pt alert and oriented, states feeling well. asking to go home. sitting up in bed, eating breakfast.
[2023-03-12] MEDS: GABAPENTIN 300 MG CAPSULE PO ×2 (09:09→14:57)
[2023-03-12] MEDS: LORazepam 1 MG TABLET 2 MG PO (11:10)
--- NOTE | 2023-03-12 12:32 | ED.NURSE ---
Dr. Red in room.
[2023-03-12] MEDS: QUETIAPINE 100 MG TABLET 600 MG PO (12:42)
[2023-03-12] MEDS: ROPINIROLE HCL 1 MG TABLET 2 MG PO (12:43)
--- NOTE | 2023-03-12 12:55 | PM.IMHP1 ---
Hospitalist- H&P: HPI History of Present Illness Date Seen: 03/12/23 Chief complaint: weak Narrative: Nicanor Alvarado is a 57 year old male who was BIBA to the ER last night for AMS after multiple falls at home. [place], and she called 911. Patient arrived to ED hypoxic and hypotensive, as well as bradypneic. ER Course and Findings: - IJ placed for fluid resuscitation - supplemental oxygen initiated, discontinued overnight - found to have USAMA with creatinine of 5.7, potassium 3.1 - no acute abnormalities on CT of head, C/A/P (without contrast) - negative d-dimer, troponin 0.26 (no CP) - UTox + for methamphetamines, THC, benzodiazepines. Negative ETOH - reassuring renal ultrasound Initially, transfer to tertiary care center planned; no beds available without our transfer area. Overnight, patients BP normalized and creatinine slowly improved with IVF rehydration. Potassium remained low-normal. Given improvement, he is an appropriate admission to our local hospitalist service. When I see Tom, he is moderately perseverative about his medical history/chronic pain. He has no urinary concerns, no history of kidney disease. He endorses daily ETOH use (he believes that his last drink was Wednesday night, 1/3; also believes that's when he last used methamphetamine), + history of withdrawal. Tom does not plan to quit drinking or using methamphetamine, even after a tonja discussion regarding risk of . Medical history reviewed and updated below. PCP is Dr. Massey. He states that he is taking his medication as prescribed, but his true compliance or medication regimen is very unclear. 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) ?F15.21 - Other stimulant dependence, in remission (ICD-10) Allergic rhinitis ?J30.9 - Allergic rhinitis, unspecified (ICD-10) Seborrheic dermatitis ?L21.9 - Seborrheic dermatitis, unspecified (ICD-10) Chronic pain of both shoulders ?M25.511 - Pain in right shoulder (ICD-10) ?M25.512 - Pain in left shoulder (ICD-10) ?G89.29 - Other chronic pain (ICD-10) BPH (benign prostatic hyperplasia) ?N40.0 - Benign prostatic hyperplasia without lower urinary tract symptoms (ICD-10) Spondylosis of cervical spine with radiculopathy (09/06/19) ?M47.22 - Other spondylosis with radiculopathy, cervical region (ICD-10) Severe alcohol dependence in early remission (09/25/15) ?F10.21 - Alcohol dependence, in remission (ICD-10) Restless legs syndrome ?G25.81 - Restless legs syndrome (ICD-10) Posttraumatic stress disorder ?F43.10 - Post-traumatic stress disorder, unspecified (ICD-10) Photokeratitis of both eyes (07/31/18) ?H16.133 - Photokeratitis, bilateral (ICD-10) Insomnia ?G47.00 - Insomnia, unspecified (ICD-10) Hypogonadism in male ?E29.1 - Testicular hypofunction (ICD-10) Hypertension ?I10 - Essential (primary) hypertension (ICD-10) Hyperlipidemia ?E78.5 - Hyperlipidemia, unspecified (ICD-10) History of traumatic rupture of spleen ?Z87.828 - Personal history of other (healed) physical injury and trauma (ICD-10) History of psychoactive substance use disorder ?Z87.898 - Personal history of other specified conditions (ICD-10) History of migraine ?Z86.69 - Personal history of other diseases of the nervous system and sense organs (ICD-10) History of gastroesophageal reflux (GERD) ?Z87.19 - Personal history of other diseases of the digestive system (ICD-10) History of alcohol dependence ?F10.21 - Alcohol dependence, in remission (ICD-10) Genital herpes simplex ?A60.00 - Herpesviral infection of urogenital system, unspecified (ICD-10) Gastroesophageal reflux disease (05/16/01) ?K21.9 - Gastro-esophageal reflux disease without esophagitis (ICD-10) Erectile dysfunction ?N52.9 - Male erectile dysfunction, unspecified (ICD-10) 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 - Nightmare disorder (ICD-10) Surgical History History of arthroscopy of right shoulder (01/13/23) ?Z98.890 - Other specified postprocedural states (ICD-10) S/P arthroscopy of right shoulder (02/11/22) ?Z98.890 - Other specified postprocedural states (ICD-10) History of spinal surgery (1999) ?Z98.890 - Other specified postprocedural states (ICD-10) Status post right rotator cuff repair ?Z98.890 - Other specified postprocedural states (ICD-10) History of surgery on arm ?Z98.890 - Other specified postprocedural states (ICD-10) H/O left wrist surgery ?Z98.890 - Other specified postprocedural states (ICD-10) History of fusion of lumbar spine ?Z98.1 - Arthrodesis status (ICD-10) History of cervical spinal arthrodesis (2019) ?Z98.1 - Arthrodesis status (ICD-10) History of bunionectomy of right great toe (10/27/04) ?Z98.890 - Other specified postprocedural states (ICD-10) Social History (Updated 03/12/23 @ 13:29 by Martha Red MD) Narrative: Lives with mother (Kathy Alvarado - medical decision maker if needed). Single, 2 kids, one son committed suicide, non-smoker, ETOH overuse (24 beers in one sitting most days of the week). Requesting Full Code status. What is your current living situation?: I have a place to live at present, but am concerned about future Problems where you live: pests, such as bugs, ants, or mice In the past 12 months, utilities in danger of being shut off: no In past 12 months, lack of transportation kept you from medical appts, meetings, work, or getting things needed for daily living: no In the past 12 mos, have been you worried that your food would run out before you had money to buy more?: never true In the past 12 mos, the food you bought just didn't last and you didn't have money to buy more?: never true Smoking Status: Former smoker How often do you have a drink containing alcohol: 2-3 times a week Alcohol type: hard liquor How many standard drinks containing alcohol do you have on a typical day: 3 or 4 How often do you have six or more drinks on one occasion: Never AUDIT-C Alcohol total score: 4 Non-prescribed substance use: denies use Caffeine: Yes (coffee) How often does anyone, including family, friends and others, physically hurt you: never How often does anyone, including family, friends and others, insult or talk down to you: never How often does anyone, including family, friends and others, threaten you with harm: never How often does anyone, including family, friends and others, scream or curse at you: never Little interest or pleasure in doing things: several days Feeling down, depressed, or hopeless: several days Meds Home Medications and Allergies Home Medications Medication Instructions Recorded Confirmed Type vardenafil 20 mg tablet 20 mg PO QDAY PRN 09/15/21 03/11/23 History calcium 600 mg-D3 20 mcg-magnesium tab PO 11/16/22 02/26/23 History 40 dx-jwbkfx-byuy-zinc chew tablet multivitamin (Daily Multi-Vitamin 1 tab PO QDAY 11/16/22 03/11/23 History tablet) loperamide 2 mg tablet (Imodium 2 mg PO Q6H PRN 12/15/22 03/11/23 History A-D) propranolol 10 mg tablet 10 mg PO BID 03/11/23 03/11/23 History trazodone 100 mg tablet 100 mg PO QHS 03/11/23 03/11/23 History Allergies Allergy/AdvReac Type Severity Reaction Status Date / Time valproic acid AdvReac Intermediate excessive Verified 02/26/23 10:38 sedation naltrexone AdvReac Unknown Verified 02/26/23 10:38 Exam Narrative: Exam Narrative: GEN: Alert, sitting up in bed, eating lunch. IJ in place. Does not appear toxic HEENT: Some missing teeth without any concerns for acute infectious process, EOMIs bilaterally, no scleral icterus CV: RRR, no concerning murmurs noted on exam. Chest wall noted to have blanching confluent erythema, stable and baseline per patient R: LCTA bilaterally without concerning wheezing, air movement is adequate. Breathing comfortably Ab: soft, no ttp Ext: wwp, no concerning edema, tolerates palpation Skin: Scattered scarring from previous surgery, erythema of chest as noted above Neuro: No focal deficits, no resting tremor, gait not observed Psych: Pressured speech with intermittent perseveration regarding chronic conditions Const: Vital Signs, click to edit/add: Vital Signs - 24 hr 03/11/23 18:58 03/11/23 19:17 03/11/23 19:18 Temperature 97.2 F L Pulse Rate 73 72 Pulse Rate [Right Pulse Oximeter] 74 Respiratory Rate 10 L Blood Pressure 77/46 L Blood Pressure [Le ft Arm] Blood Pressure [Le ft Upper Arm] 75/33 L Pulse Oximetry 88 96 96 Oxygen Delivery Me thod OxyMask Oxygen Flow Rate 2 2 03/11/23 19:21 03/11/23 19:23 03/11/23 19:24 Temperature 97.2 F L Pulse Rate 73 73 Pulse Rate [Right Pulse Oximeter] 68 Respiratory Rate 10 L Blood Pressure 68/46 L 71/49 L Blood Pressure [Le ft Arm] Blood Pressure [Le ft Upper Arm] 66/47 L Pulse Oximetry 97 92 98 Oxygen Delivery Me thod OxyMask Oxygen Flow Rate 2 2 03/11/23 19:29 03/11/23 19:30 03/11/23 19:31 Temperature Pulse Rate 74 75 72 Pulse Rate [Right Pulse Oximeter] Respiratory Rate Blood Pressure 78/48 L 91/47 L Blood Pressure [Le ft Arm] Blood Pressure [Le ft Upper Arm] Pulse Oximetry 96 97 95 Oxygen Delivery Me thod Oxygen Flow Rate 0 03/11/23 19:38 03/11/23 19:55 03/11/23 19:57 Temperature Pulse Rate 75 78 76 Pulse Rate [Right Pulse Oximeter] Respiratory Rate Blood Pressure 98/41 L 83/45 L Blood Pressure [Le ft Arm] Blood Pressure [Le ft Upper Arm] Pulse Oximetry 95 94 96 Oxygen Delivery Me thod Oxygen Flow Rate 03/11/23 20:00 03/11/23 20:02 03/11/23 20:14 Temperature Pulse Rate 77 74 77 Pulse Rate [Right Pulse Oximeter] Respiratory Rate Blood Pressure 84/63 L Blood Pressure [Le ft Arm] Blood Pressure [Le ft Upper Arm] Pulse Oximetry 96 97 97 Oxygen Delivery Me thod Oxygen Flow Rate 03/11/23 20:15 03/11/23 20:19 03/11/23 20:21 Temperature Pulse Rate 79 76 76 Pulse Rate [Right Pulse Oximeter] Respiratory Rate Blood Pressure 81/47 L 89/52 L Blood Pressure [Le ft Arm] Blood Pressure [Le ft Upper Arm] Pulse Oximetry 97 93 95 Oxygen Delivery Me thod Oxygen Flow Rate 03/11/23 20:30 03/11/23 20:31 03/11/23 20:44 Temperature Pulse Rate 77 76 79 Pulse Rate [Right Pulse Oximeter] Respiratory Rate Blood Pressure 95/47 L 65/42 L Blood Pressure [Le ft Arm] Blood Pressure [Le ft Upper Arm] Pulse Oximetry 96 96 95 Oxygen Delivery Me thod Oxygen Flow Rate 03/11/23 20:45 03/11/23 20:47 03/11/23 20:52 Temperature Pulse Rate 80 80 79 Pulse Rate [Right Pulse Oximeter] Respiratory Rate Blood Pressure 95/50 L 94/40 L Blood Pressure [Le ft Arm] Blood Pressure [Le ft Upper Arm] Pulse Oximetry 95 95 96 Oxygen Delivery Me thod Oxygen Flow Rate 03/11/23 21:00 03/11/23 21:01 03/11/23 21:15 Temperature Pulse Rate 80 79 84 Pulse Rate [Right Pulse Oximeter] Respiratory Rate Blood Pressure 45/35 L 169/127 H Blood Pressure [Le ft Arm] Blood Pressure [Le ft Upper Arm] Pulse Oximetry 95 98 97 Oxygen Delivery Me thod Oxygen Flow Rate 03/11/23 21:16 03/11/23 21:24 03/11/23 21:30 Temperature Pulse Rate 84 83 81 Pulse Rate [Right Pulse Oximeter] Respiratory Rate Blood Pressure 125/46 L Blood Pressure [Le ft Arm] Blood Pressure [Le ft Upper Arm] Pulse Oximetry 97 94 95 Oxygen Delivery Me thod Oxygen Flow Rate 03/11/23 21:32 03/11/23 21:42 03/11/23 21:45 Temperature Pulse Rate 81 85 82 Pulse Rate [Right Pulse Oximeter] Respiratory Rate Blood Pressure 99/55 L 98/52 L Blood Pressure [Le ft Arm] Blood Pressure [Le ft Upper Arm] Pulse Oximetry 97 97 94 Oxygen Delivery Me thod Oxygen Flow Rate 03/11/23 21:46 03/11/23 21:52 03/11/23 22:00 Temperature Pulse Rate 81 84 84 Pulse Rate [Right Pulse Oximeter] Respiratory Rate Blood Pressure 88/63 L 107/51 L Blood Pressure [Le ft Arm] Blood Pressure [Le ft Upper Arm] Pulse Oximetry 96 97 97 Oxygen Delivery Me thod Oxygen Flow Rate 03/11/23 22:02 03/11/23 22:11 03/11/23 22:15 Temperature Pulse Rate 84 83 83 Pulse Rate [Right Pulse Oximeter] Respiratory Rate Blood Pressure 87/75 L 92/67 Blood Pressure [Le ft Arm] Blood Pressure [Le ft Upper Arm] Pulse Oximetry 95 97 96 Oxygen Delivery Me thod Oxygen Flow Rate 03/11/23 22:21 03/11/23 22:30 03/11/23 22:31 Temperature Pulse Rate 84 82 84 Pulse Rate [Right Pulse Oximeter] Respiratory Rate Blood Pressure 112/63 108/65 Blood Pressure [Le ft Arm] Blood Pressure [Le ft Upper Arm] Pulse Oximetry 97 98 97 Oxygen Delivery Me thod Oxygen Flow Rate 03/11/23 22:41 03/11/23 22:45 03/11/23 22:51 Temperature Pulse Rate 84 82 82 Pulse Rate [Right Pulse Oximeter] Respiratory Rate Blood Pressure 97/64 99/56 L Blood Pressure [Le ft Arm] Blood Pressure [Le ft Upper Arm] Pulse Oximetry 97 97 97 Oxygen Delivery Me thod Oxygen Flow Rate 03/11/23 23:00 03/11/23 23:02 03/11/23 23:11 Temperature Pulse Rate 81 81 86 Pulse Rate [Right Pulse Oximeter] Respiratory Rate Blood Pressure 102/58 L 97/60 Blood Pressure [Le ft Arm] Blood Pressure [Le ft Upper Arm] Pulse Oximetry 95 96 95 Oxygen Delivery Me thod Oxygen Flow Rate 03/11/23 23:15 03/11/23 23:22 03/11/23 23:32 Temperature Pulse Rate 83 85 83 Pulse Rate [Right Pulse Oximeter] Respiratory Rate 18 18 Blood Pressure 118/82 108/67 Blood Pressure [Le ft Arm] Blood Pressure [Le ft Upper Arm] Pulse Oximetry 95 98 96 Oxygen Delivery Me thod Oxygen Flow Rate 03/11/23 23:42 03/11/23 23:52 03/12/23 00:11 Temperature Pulse Rate 84 86 85 Pulse Rate [Right Pulse Oximeter] Respiratory Rate 18 18 18 Blood Pressure 98/46 L 99/58 L 103/56 L Blood Pressure [Le ft Arm] Blood Pressure [Le ft Upper Arm] Pulse Oximetry 97 96 96 Oxygen Delivery Me thod Oxygen Flow Rate 03/12/23 01:23 03/12/23 01:35 03/12/23 01:41 Temperature 98.2 F Pulse Rate 87 85 Pulse Rate [Right Pulse Oximeter] Respiratory Rate 18 Blood Pressure 112/58 L 102/63 Blood Pressure [Le ft Arm] Blood Pressure [Le ft Upper Arm] Pulse Oximetry 95 93 Oxygen Delivery Me thod Oxygen Flow Rate 03/12/23 01:51 03/12/23 02:01 03/12/23 02:40 Temperature 98.2 F Pulse Rate 84 84 Pulse Rate [Right Pulse Oximeter] Respiratory Rate 18 Blood Pressure 95/61 88/53 L Blood Pressure [Le ft Arm] 95/67 Blood Pressure [Le ft Upper Arm] Pulse Oximetry 95 94 94 Oxygen Delivery Me thod Room Air OxyMask Oxygen Flow Rate 03/12/23 03:01 03/12/23 03:05 03/12/23 03:31 Temperature 98.2 F 98.0 F Pulse Rate 78 76 Pulse Rate [Right Pulse Oximeter] Respiratory Rate 18 Blood Pressure 92/61 91/59 L Blood Pressure [Le ft Arm] Blood Pressure [Le ft Upper Arm] Pulse Oximetry 94 94 Oxygen Delivery Me thod Oxygen Flow Rate 03/12/23 03:43 03/12/23 04:01 03/12/23 04:31 Temperature 98.0 F Pulse Rate 73 74 Pulse Rate [Right Pulse Oximeter] 75 Respiratory Rate 18 18 16 Blood Pressure 112/61 109/71 Blood Pressure [Le ft Arm] 95/67 Blood Pressure [Le ft Upper Arm] Pulse Oximetry 94 94 96 Oxygen Delivery Me thod Room Air OxyMask Oxygen Flow Rate 0 03/12/23 05:01 03/12/23 06:01 03/12/23 06:32 Temperature Pulse Rate 74 76 80 Pulse Rate [Right Pulse Oximeter] Respiratory Rate 18 18 Blood Pressure 91/60 118/76 103/82 Blood Pressure [Le ft Arm] Blood Pressure [Le ft Upper Arm] Pulse Oximetry 94 95 97 Oxygen Delivery Me thod Oxygen Flow Rate 03/12/23 06:33 03/12/23 07:00 03/12/23 07:01 Temperature Pulse Rate 81 80 82 Pulse Rate [Right Pulse Oximeter] Respiratory Rate Blood Pressure 111/64 105/74 Blood Pressure [Le ft Arm] Blood Pressure [Le ft Upper Arm] Pulse Oximetry 95 95 96 Oxygen Delivery Me thod Oxygen Flow Rate 03/12/23 07:02 03/12/23 07:30 03/12/23 07:31 Temperature Pulse Rate 78 81 80 Pulse Rate [Right Pulse Oximeter] Respiratory Rate Blood Pressure 112/63 Blood Pressure [Le ft Arm] Blood Pressure [Le ft Upper Arm] Pulse Oximetry 98 97 97 Oxygen Delivery Me thod Oxygen Flow Rate 03/12/23 07:32 03/12/23 07:43 03/12/23 08:00 Temperature Pulse Rate 79 81 Pulse Rate [Right Pulse Oximeter] 80 Respiratory Rate 18 Blood Pressure Blood Pressure [Le ft Arm] 112/83 Blood Pressure [Le ft Upper Arm] Pulse Oximetry 97 96 98 Oxygen Delivery Me thod Room Air Oxygen Flow Rate 03/12/23 08:01 03/12/23 08:30 03/12/23 08:33 Temperature Pulse Rate 83 86 86 Pulse Rate [Right Pulse Oximeter] Respiratory Rate Blood Pressure 120/70 134/78 Blood Pressure [Le ft Arm] Blood Pressure [Le ft Upper Arm] Pulse Oximetry 97 97 97 Oxygen Delivery Me thod Oxygen Flow Rate 03/12/23 09:00 03/12/23 09:02 03/12/23 09:03 Temperature Pulse Rate 88 89 89 Pulse Rate [Right Pulse Oximeter] Respiratory Rate Blood Pressure 91/73 Blood Pressure [Le ft Arm] Blood Pressure [Le ft Upper Arm] Pulse Oximetry 95 96 98 Oxygen Delivery Me thod Oxygen Flow Rate 03/12/23 09:30 03/12/23 09:31 03/12/23 09:32 Temperature Pulse Rate 93 89 91 Pulse Rate [Right Pulse Oximeter] Respiratory Rate Blood Pressure 91/66 Blood Pressure [Le ft Arm] Blood Pressure [Le ft Upper Arm] Pulse Oximetry 96 96 96 Oxygen Delivery Me thod Oxygen Flow Rate 03/12/23 10:00 03/12/23 10:02 03/12/23 10:30 Temperature Pulse Rate 83 92 93 Pulse Rate [Right Pulse Oximeter] Respiratory Rate Blood Pressure 122/71 Blood Pressure [Le ft Arm] Blood Pressure [Le ft Upper Arm] Pulse Oximetry 94 94 95 Oxygen Delivery Me thod Oxygen Flow Rate 03/12/23 10:31 03/12/23 11:00 03/12/23 11:01 Temperature Pulse Rate 90 89 88 Pulse Rate [Right Pulse Oximeter] Respiratory Rate Blood Pressure 132/83 130/78 Blood Pressure [Le ft Arm] Blood Pressure [Le ft Upper Arm] Pulse Oximetry 94 94 95 Oxygen Delivery Me thod Oxygen Flow Rate 03/12/23 11:30 03/12/23 11:31 03/12/23 11:32 Temperature Pulse Rate 88 89 89 Pulse Rate [Right Pulse Oximeter] Respiratory Rate Blood Pressure 136/74 Blood Pressure [Le ft Arm] Blood Pressure [Le ft Upper Arm] Pulse Oximetry 92 95 94 Oxygen Delivery Me thod Oxygen Flow Rate 03/12/23 12:05 03/12/23 12:07 03/12/23 12:30 Temperature Pulse Rate 90 92 89 Pulse Rate [Right Pulse Oximeter] Respiratory Rate Blood Pressure 138/84 Blood Pressure [Le ft Arm] Blood Pressure [Le ft Upper Arm] Pulse Oximetry 93 96 94 Oxygen Delivery Me thod Oxygen Flow Rate 03/12/23 12:31 Temperature Pulse Rate 91 Pulse Rate [Right Pulse Oximeter] Respiratory Rate Blood Pressure 145/79 H Blood Pressure [Le ft Arm] Blood Pressure [Le ft Upper Arm] Pulse Oximetry 95 Oxygen Delivery Me thod Oxygen Flow Rate Hospitalist - H&P: Result Labs Labs: Short CBC 03/11/23 Range/Units 19:00 WBC 10.69 (4.50-11.00) K/uL Hgb 17.4 (13.5-17.5) gm/dL Hct 51.9 (37.0-53.0) % Plt Count 146 (140-440) K/uL BMP 03/11/23 03/11/23 03/12/23 19:00 23:05 06:30 Sodium 135 136 138 Potassium 3.1 L 3.3 L 3.1 L Chloride 95 L 101 103 Carbon Dioxide 29 26 25 BUN 50 H 48 H 50 H Creatinine 5.7 H 5.0 H 4.9 H Glucose 105 83 83 Calcium 8.4 7.7 L 7.9 L Cardiac Enzymes 03/11/23 03/11/23 Range/Units 19:00 21:46 Total Creatine Kinase 231 H (54-186) U/L Troponin I 0.26 H* Cancelled (0.01-0.04) ng/mL Liver Function 03/11/23 Range/Units 19:00 Total Bilirubin 1.5 (0.1-1.5) mg/dL AST 34 (12-35) U/L ALT 24 (4-50) U/L Alkaline Phosphatase 49 (40-150) U/L Albumin 3.9 (3.3-5.0) g/dL Urine 03/11/23 Range/Units 18:10 Urine Color Brown A (Yellow) Urine Appearance Cloudy A (Clear) Urine pH 5.5 (5.0-8.5) Ur Specific [place] >= 1.030 (1.000-1.030) Urine Protein 2+ A (Negative) Urine Glucose (UA) Negative (Negative) Assessment and Plan Assessment and plan (1) Acute renal failure: Problem comment: - admission creatinine 5.7, K of 3.1 - likely pre-renal azotemia 2/2 ETOH abuse/methamphetamine use, dehydration -- > improvement with IVF resuscitation - hold nephrotoxins - continue to follow renal function and potassium - does not require emergent dialysis at this, will likely need close outpatient f/u with PCP and Nephrology Status: Acute (2) Acute hypotension: Problem comment: - resolved after IVF resuscitation - continue IVFs, close monitoring Status: Acute (3) Schizophrenia: Problem comment: - Dr Craven - [facility] Status: Acute (4) Chronic pain: Problem comment: - patient is not on chronic narcotics, did have fall prior to admission with pain flare (no radiographic evidence of fracture) - will continue home dose of Gabapentin, NSAIDs contraindicated given ARF - add scheduled Tylenol, + Lidocaine patch, prn Vistaril, once/day Oxycodone for severe flare - therapies ordered Status: Acute (5) Alcohol dependence: Problem comment: - likely contributing to ARF, patient not interested in cessation - last drink 1/3pm, on CIWA Status: Acute (6) Methamphetamine abuse: Problem comment: - injects. Counseled regarding risks Status: Acute Plan - per above - Teds, SCDs, ambulation for ppx - Full Code requested
--- NOTE | 2023-03-12 13:08 | ED.NURSE ---
report given to Megan PUCKETT, pt will transfer to CCU1 via wheelchair with belongings.
--- NOTE | 2023-03-12 13:15 | ED.NURSE ---
pt had 500cc urine out of [place] since 0700. pt up independently to bathroom, had bm. pt sat up in chair for a short time, ate lunch.
--- NOTE | 2023-03-12 14:00 | REH.OT ---
OT/PT orders received, chart reviewed, spoke with RN and MD. Patient not medically appropriate for therapy this afternoon. Will eval tomorrow am if appropriate.
[2023-03-12] MEDS: OMEPRAZOLE 20 MG CAPSULE DR PO (14:57)
[2023-03-12] MEDS: GABAPENTIN 600 MG TABLET PO (14:57)
[2023-03-12] MEDS: METOPROLOL SUCCINATE (XL) 100 MG TAB PO (14:57)
[2023-03-12] MEDS: THIAMINE 100 MG TABLET PO (14:58)
[2023-03-12 15:12] LABS: Lactate* 0.7 mmol/L (0.5-1.9)
[2023-03-12 15:13] LABS: Basophils Absolute Auto 0.03 K/uL (0.00-0.30); Basophils Percent Auto 0.3 % (0.0-3.0); Eosinophils Absolute Auto 0.18 K/uL (0.00-0.50); Hematocrit 46.7 % (37.0-53.0); Hemoglobin* 15.6 gm/dL (13.5-17.5); Immature Granulocytes Abs Auto 0.03 K/uL (0.00-0.30); Immature Granulocytes Pct Auto 0.3 %; Lymphocytes Percent Auto 12.3 % (20-44); Mean Corpuscular HGB Conc 33 gm/dL (32-36); Mean Corpuscular Hemoglobin 32 pg (26-34); Mean Corpuscular Volume 95 fL (80-100); Neutrophils Percent Auto 73.1 % (42.0-72.0); Platelet Count* 127 K/uL (140-440); RDW Coefficient of Variation % 13.7 % (11.5-15.5)
[2023-03-12 15:26] LABS: Slide Review Reflex No
[2023-03-12 15:31] LABS: Albumin* 3.1 g/dL (3.3-5.0); Chloride* 107 mmol/L (96-114); Potassium* 3.1 mmol/L (3.6-5.1); Sodium* 138 mmol/L (135-149)
[2023-03-12 15:33] LABS: Anion Gap 5 mEq/L (7-15); Aspartate Amino Transferase* 41 U/L (12-35); Bilirubin Total* 0.4 mg/dL (0.1-1.5); Carbon Dioxide* 26 mmol/L (20-32); Creatinine* 3.6 mg/dL (0.5-1.5); Est. Creatinine Clearance* 25.59; Estimated Glomerular Filt Rate 19 ml/min; Total Protein* 5.8 g/dL (6.0-8.3)
[2023-03-12 15:34] LABS: Alanine Aminotransferase* 27 U/L (4-50); Alkaline Phosphatase* 57 U/L (40-150); Blood Urea Nitrogen* 42 mg/dL (7-30); Calcium* 8.1 mg/dL (8.4-10.6); Glucose* 95 mg/dL (60-115)
[2023-03-12 15:50] LABS: Troponin I* 0.33 ng/mL (0.01-0.04)
[2023-03-12] MEDS: ACETAMINOPHEN 325 MG TABLET 975 MG PO (18:32)
[2023-03-12] MEDS: PRAZOSIN HCL 1 MG CAPSULE 2 MG PO (18:32)
[2023-03-12] MEDS: LIDOCAINE 5% PATCH 1 PATCH TRANSDERMA (18:33)
--- NOTE | 2023-03-12 19:01 | PC.NURSE ---
PATIENT ADMITTED FROM EMERGENCY DEPARTMENT. PATIENT DROWSY AND SLEEPING. DOES AWAKEN TO VOICE AND TOUCH. DENIED N/V. REPORTS LAST DRINKING AND USING METH WEDNESDAY. STATES HE HAS GONE THROUGH WITHDRAWAL IN THE PAST BUT UNSURE IF HE HAS ANY SEIZURE HISTORY. PATIENT DID AWAKE TO EAT SUPPER. PELAEZ IN PLACE AND DRAINING URINE.
[2023-03-12] MEDS: LORazepam 2 MG/ML inj IVP (19:22)
[2023-03-12] MEDS: SODIUM CHLORIDE 0.9 % (FLUSH) 10 ML SYRINGE 5 ML IVF (19:23)
[2023-03-13] VITALS (17 sets, daily range): BP systolic 126–187; BP diastolic 80–115; PULSE 75–87; RESP 16–22; TEMP 36.4–37.2; O2SAT 94–98
[2023-03-13] MEDS: 0.9 % SODIUM CHLORIDE 1000 ml 1,000 ML 125 ML IV ×3 (01:03→23:05)
[2023-03-13] MEDS: LORazepam 1 MG TABLET PO ×3 (02:46→18:59)
[2023-03-13] MEDS: ACETAMINOPHEN 325 MG TABLET 975 MG PO ×2 (02:46→18:59)
[2023-03-13 06:48] LABS: Basophils Absolute Auto 0.04 K/uL (0.00-0.30); Basophils Percent Auto 0.6 % (0.0-3.0); Eosinophils Absolute Auto 0.21 K/uL (0.00-0.50); Eosinophils Percent Auto 3.2 % (0.0-7.0); Hematocrit 46.8 % (37.0-53.0); Hemoglobin* 15.5 gm/dL (13.5-17.5); Immature Granulocytes Abs Auto 0.05 K/uL (0.00-0.30); Immature Granulocytes Pct Auto 0.8 %; Lymphocytes Percent Auto 22.9 % (20-44); Mean Corpuscular HGB Conc 33 gm/dL (32-36); Mean Corpuscular Hemoglobin 32 pg (26-34); Mean Corpuscular Volume 96 fL (80-100); Neutrophils Absolute Auto 4.02 K/uL (1.7-7.0); Neutrophils Percent Auto 61.5 % (42.0-72.0); Platelet Count* 141 K/uL (140-440); RDW Coefficient of Variation % 13.6 % (11.5-15.5); Red Blood Count 4.88 m/uL (4.30-5.90); White Blood Count* 6.54 K/uL (4.50-11.00)
--- NOTE | 2023-03-13 06:50 | PC.NURSE ---
[id number]: Patient asleep most of shift. CIWA's 2-12 with Ativan administered accordingly. VSS. Bae patent. Central line patent. Remained on bedrest during noc.
[2023-03-13 07:04] LABS: Chloride* 109 mmol/L (96-114)
[2023-03-13 07:05] LABS: Potassium* 3.5 mmol/L (3.6-5.1); Sodium* 140 mmol/L (135-149)
[2023-03-13 07:07] LABS: Creatinine* 2.1 mg/dL (0.5-1.5); Est. Creatinine Clearance* 43.86; Estimated Glomerular Filt Rate 36 ml/min
[2023-03-13 07:08] LABS: Anion Gap 4 mEq/L (7-15); Blood Urea Nitrogen* 29 mg/dL (7-30); Calcium* 8.4 mg/dL (8.4-10.6); Carbon Dioxide* 27 mmol/L (20-32); Glucose* 73 mg/dL (60-115); Magnesium* 2.2 mg/dL (1.5-2.6); Phosphorus* 2.8 mg/dL (2.5-4.5)
[2023-03-13 07:25] LABS: Slide Review Reflex No
[2023-03-13 07:32] LABS: Troponin I* 0.35 ng/mL (0.01-0.04)
[2023-03-13] MEDS: METOPROLOL SUCCINATE (XL) 100 MG TAB PO (08:06)
[2023-03-13] MEDS: ROPINIROLE HCL 1 MG TABLET 2 MG PO ×2 (08:07→21:14)
[2023-03-13] MEDS: GABAPENTIN 600 MG TABLET PO ×3 (08:07→21:13)
[2023-03-13] MEDS: OMEPRAZOLE 20 MG CAPSULE DR PO (08:08)
[2023-03-13] MEDS: SODIUM CHLORIDE 0.9 % (FLUSH) 10 ML SYRINGE 5 ML IVF ×2 (08:08→14:53)
--- NOTE | 2023-03-13 08:31 | PM.IMPN1 ---
Progress Note: A&P Assessment and plan (1) Elevated troponin I level: Problem details: - suspect related to methamphetamine use. Patient would benefit from an echocardiogram, but refused. I have recommended abstinence from methamphetamine and outpatient stress testing. Status: Acute (2) Methamphetamine abuse: Problem details: - injects. Counseled regarding risks Status: Acute (3) Alcohol dependence: Problem details: - likely contributing to ARF, patient not interested in cessation - last drink 1/3pm, on [facility] - if unable to really obtain IV access, use oral or IM medication. Status: Acute (4) Chronic pain: Problem details: - patient is not on chronic narcotics, did have fall prior to admission with pain flare (no radiographic evidence of fracture) - will continue home dose of Gabapentin, NSAIDs contraindicated given ARF - add scheduled Tylenol, + Lidocaine patch, prn Vistaril, once/day Oxycodone for severe flare - therapies ordered Status: Chronic (5) Acute renal failure: Problem details: - admission creatinine 5.7, K of 3.1 - likely pre-renal azotemia 2/2 ETOH abuse/methamphetamine use, dehydration -- > improvement with IVF resuscitation - hold nephrotoxins - continue to follow renal function and potassium - does not require emergent dialysis at this, will likely need close outpatient f/u with PCP and Nephrology - / creatinine improving, 2.1 today. Potassium 3.5. Continue IV fluids if able to obtain IV access without central line. If unable, encourage oral fluids. Continue to hold diclofenac and lisinopril. Recheck labs in the morning. Status: Acute (6) Acute hypotension: Problem details: - resolved after IVF resuscitation - continue IVFs, close monitoring Status: Resolved (7) Schizophrenia: Problem details: - Dr Craven - [facility] - continue quetiapine. Status: Chronic (8) Hypertension: Problem details: Holding lisinopril due to acute kidney injury. Status: Chronic (9) Hyperlipidemia: Problem details: Holding atorvastatin mildly elevated liver enzymes and alcohol use Status: Chronic (10) Restless legs syndrome: Problem details: Continue ropinirole Status: Chronic (11) Hypokalemia: Problem details: Magnesium level today is 2.2. No replacement needed. Continue to replace potassium orally and recheck in the morning. Status: Acute Time Spent With Patient Total time spent: Today I spent 60 minutes rounding on the patient. Greater than 50% included discussing plan and care with the patient, care with the team, reviewing data, updating and managing the care plan. Subjective Time Seen by Provider: 08:00 Date Seen: 03/13/23 Interval history: Tom is anxious to leave and asked me multiple times why he can't just go home and watch TV like he is here. Although we discussed that we are treating him for NSTEMI, USAMA, and alcohol withdrawal, he again asked why he can't just do all that at home. We discussed the risk of worsening heart condition, worsening USAMA, and . He denies chest pain or shortness of breath. I have also discussed this situation with nurses and staff as patient has a central line and recent history of injecting meth. I have advised that we do not let him leave with a central line in place and that we search for a peripheral line today so that we can discontinue the central line. UPDATE: Patient decided to leave AMA and a ride came to pick him up. Because of this, we discontinued the central line. Tom then decided to stay. We are looking for IV access. I do not think he needs another central line. If we are unable to obtain IV access, I favor treating with oral hydration and monitoring. Also, patient reportedly took pills from a bag of pills he brought with him. He states these were stool softeners. He has agreed to give us the bag of pills to put in our safe while he stays in the hospital. Exam Narrative: Exam Narrative: General: Angry and anxious, but occasionally would calm down while we discussed my recommendations. Loud. Awake, alert, oriented x3. No pallor. No jaundice. Oropharynx: Clear. Mucous membranes moist. Cardiovascular: Regular rate and rhythm. No murmurs, gallops, or rubs. Respiratory: Clear to auscultation bilaterally. No wheezes or crackles. Abdomen: Bowel sounds present. Soft, nondistended, nontender. Extremities: No pedal edema. Const: Vital Signs, click to edit/add: Vital Signs - 24 hr 03/12/23 08:33 03/12/23 09:00 03/12/23 09:02 Temperature Pulse Rate 86 88 89 Pulse Rate [Right Pulse Oximeter] Respiratory Rate Blood Pressure 134/78 91/73 Blood Pressure [Le ft Arm] Pulse Oximetry 97 95 96 Oxygen Delivery Me thod Oxygen Flow Rate 03/12/23 09:03 03/12/23 09:30 03/12/23 09:31 Temperature Pulse Rate 89 93 89 Pulse Rate [Right Pulse Oximeter] Respiratory Rate Blood Pressure 91/66 Blood Pressure [Le ft Arm] Pulse Oximetry 98 96 96 Oxygen Delivery Me thod Oxygen Flow Rate 03/12/23 09:32 03/12/23 10:00 03/12/23 10:02 Temperature Pulse Rate 91 83 92 Pulse Rate [Right Pulse Oximeter] Respiratory Rate Blood Pressure 122/71 Blood Pressure [Le ft Arm] Pulse Oximetry 96 94 94 Oxygen Delivery Me thod Oxygen Flow Rate 03/12/23 10:30 03/12/23 10:31 03/12/23 11:00 Temperature Pulse Rate 93 90 89 Pulse Rate [Right Pulse Oximeter] Respiratory Rate Blood Pressure 132/83 Blood Pressure [Le ft Arm] Pulse Oximetry 95 94 94 Oxygen Delivery Me thod Oxygen Flow Rate 03/12/23 11:01 03/12/23 11:30 03/12/23 11:31 Temperature Pulse Rate 88 88 89 Pulse Rate [Right Pulse Oximeter] Respiratory Rate Blood Pressure 130/78 136/74 Blood Pressure [Le ft Arm] Pulse Oximetry 95 92 95 Oxygen Delivery Me thod Oxygen Flow Rate 03/12/23 11:32 03/12/23 12:05 03/12/23 12:07 Temperature Pulse Rate 89 90 92 Pulse Rate [Right Pulse Oximeter] Respiratory Rate Blood Pressure 138/84 Blood Pressure [Le ft Arm] Pulse Oximetry 94 93 96 Oxygen Delivery Me thod Oxygen Flow Rate 03/12/23 12:30 03/12/23 12:31 03/12/23 12:32 Temperature Pulse Rate 89 91 91 Pulse Rate [Right Pulse Oximeter] Respiratory Rate Blood Pressure 145/79 H Blood Pressure [Le ft Arm] Pulse Oximetry 94 95 95 Oxygen Delivery Me thod Oxygen Flow Rate 03/12/23 13:00 03/12/23 14:00 03/12/23 15:00 Temperature 98.4 F Pulse Rate 89 86 Pulse Rate [Right Pulse Oximeter] 90 Respiratory Rate 18 Blood Pressure Blood Pressure [Le ft Arm] 152/121 H Pulse Oximetry 93 96 Oxygen Delivery Me thod Room Air Oxygen Flow Rate 0 03/12/23 15:00 03/12/23 15:00 01/05/24 15:00 Temperature 98.0 F 98.0 F Pulse Rate Pulse Rate [Right Pulse Oximeter] 88 88 Respiratory Rate 18 18 Blood Pressure Blood Pressure [Le ft Arm] 142/87 H 142/87 H Pulse Oximetry 98 98 98 Oxygen Delivery Me thod Room Air Room Air Room Air Oxygen Flow Rate 0 0 0 03/12/23 15:33 03/12/23 16:00 03/12/23 19:15 Temperature 97.7 F 97.6 F Pulse Rate Pulse Rate [Right Pulse Oximeter] 87 90 Respiratory Rate 22 18 20 Blood Pressure Blood Pressure [Le ft Arm] 165/85 H 162/102 H Pulse Oximetry 96 94 95 Oxygen Delivery Me thod Room Air Room Air Room Air Oxygen Flow Rate 0 03/12/23 19:16 03/12/23 19:39 03/12/23 20:06 Temperature 97.6 F 97.6 F 97.6 F Pulse Rate Pulse Rate [Right Pulse Oximeter] 102 H 92 Respiratory Rate 20 20 Blood Pressure Blood Pressure [Le ft Arm] 160/102 H 142/74 H Pulse Oximetry 95 93 Oxygen Delivery Me thod Room Air Room Air Oxygen Flow Rate 03/13/23 00:53 03/13/23 00:58 03/13/23 01:12 Temperature 97.5 F L 97.5 F L Pulse Rate 84 Pulse Rate [Right Pulse Oximeter] 82 82 Respiratory Rate 16 16 Blood Pressure Blood Pressure [Le ft Arm] 143/80 H 143/80 H Pulse Oximetry 94 94 Oxygen Delivery Me thod Room Air Room Air Oxygen Flow Rate 03/13/23 01:15 03/13/23 03:20 03/13/23 04:05 Temperature Pulse Rate Pulse Rate [Right Pulse Oximeter] 80 77 Respiratory Rate 16 16 16 Blood Pressure Blood Pressure [Le ft Arm] 126/86 137/84 Pulse Oximetry 94 95 94 Oxygen Delivery Me thod Room Air Room Air Room Air Oxygen Flow Rate 03/13/23 05:05 03/13/23 06:12 03/13/23 08:00 Temperature 98.7 F Pulse Rate Pulse Rate [Right Pulse Oximeter] 79 75 82 Respiratory Rate 16 16 22 Blood Pressure Blood Pressure [Le ft Arm] 130/85 143/81 H 182/115 H Pulse Oximetry 96 97 98 Oxygen Delivery Me thod Room Air Room Air Room Air Oxygen Flow Rate 0 Labs Labs: Laboratory Results - last 24 hr 03/12/23 03/13/23 12:56 06:20 WBC 9.00 6.54 RBC 4.90 4.88 Hgb 15.6 15.5 Hct 46.7 46.8 MCV 95 96 MCH 32 32 MCHC 33 33 RDW Coeff of Negro 13.7 13.6 Plt Count 127 L 141 Neut % (Auto) 73.1 H 61.5 Lymph % (Auto) 12.3 L 22.9 Hale % (Auto) 12.0 H 11.0 Eos % (Auto) 2.0 3.2 Baso % (Auto) 0.3 0.6 Neut # (Auto) 6.60 4.02 Lymph # (Auto) 1.10 1.50 Hale # (Auto) 1.10 H 0.70 Eos # (Auto) 0.18 0.21 Baso # (Auto) 0.03 0.04 Abs Immat Gran (auto) 0.03 0.05 Imm/Tot Granulo (auto) 0.3 0.8 Sodium 138 140 Potassium 3.1 L 3.5 L Chloride 107 109 Carbon Dioxide 26 27 Anion Gap 5 L 4 L BUN 42 H 29 Creatinine 3.6 H 2.1 H Estimated Creat Clear 25.59 43.86 Estimated GFR 19 36 Glucose 95 73 Lactate 0.7 Calcium 8.1 L 8.4 Phosphorus 2.8 Magnesium 2.2 Total Bilirubin 0.4 AST 41 H ALT 27 Alkaline Phosphatase 57 Troponin I 0.33 H* 0.35 H* Total Protein 5.8 L Albumin 3.1 L
--- NOTE | 2023-03-13 09:32 | REH.OT ---
OT: Orders received, chart reviewed and patient's troponins elevated and spoke with nsg, met with patient initially however patient yelling and swearing on phone loudly with family member, reports he is leaving and wanting to pull out central line. Patient stated what if I pull it out accidentally so I can get out of here? Patient able to be redirected. Nsg informed and charge nurse came in to meet with patient. No formal eval completed due to behavior and leaving AMA.
[2023-03-13] MEDS: HYDROCODONE-ACETAMIN 5-325 MG 1 TAB PO (11:02)
[2023-03-13] MEDS: hydrOXYzine pamoate 25 MG CAPSULE PO (11:03)
--- NOTE | 2023-03-13 11:51 | PC.NURSE ---
Discussed at length with patent his options for his care. Explained that doctors advice is to stay and receive treatment for multiple medical issues. Also explained that he has the right to leave against medical advice. MD has confirmed patient may leave ama if that is his desire. Patient understands his choices and has opted to leave against medical advice as his son is having a mental health crisis. He has called his mother to come get him. Offered to compete echo while he is waiting but patient states, I'm fine, I don't want it. Explained risks of refusing, patient is comfortable his decision. MD aware. Patient also was attempting to take multiple tablets from various home pill bottles because he said he needs his morning medications. I have explained that we do not want him taking medications on his own that could interfere or duplicate medications he is getting here. Confirmed with primary nurse that he has had his morning medications this morning and explained to Tom that he is attempting to take a second dose of these medications. He then agreed not to take them in my presence. Patient is refusing to have home medications put in med room, wants to keep them with him. Impressed importance of not taking medications without nursing staffs knowledge as it is a safety risk.
[2023-03-13 12:31] LABS: Troponin I* 0.34 ng/mL (0.01-0.04)
[2023-03-13] MEDS: THIAMINE 100 MG TABLET PO (14:53)
[2023-03-13] MEDS: PRAZOSIN HCL 1 MG CAPSULE 2 MG PO (17:58)
[2023-03-13] MEDS: LIDOCAINE 5% PATCH 1 PATCH TRANSDERMA (17:59)
[2023-03-13] MEDS: QUETIAPINE 100 MG TABLET 600 MG PO (21:14)
--- NOTE | 2023-03-13 22:15 | PC.NURSE ---
Shift [id number]- Patient is eager to go home Why can't I go home, lay in my chair, watch tv and drink gaterade instead of being here? Education provided. He becomes very agitated, pacing, while talking about medications that are and are not prescribed here while he is in the hospital. He also states he will just take the desired medications from his own supply. He was explicitly instructed and requested by clinical writer not to take his own home medications for safety, adverse effects, and/or that we are supplying him some of the medications already. Patient is not receptive, his rationale including: typical doctors do not want to give pain relief and another doctor prescribed it, so it must be ok. Even so, he does return pill bottles back to box and sits back in bed. Ativan given per CIWA protocol. He appears restful subsequently.
[2023-03-14] MEDS: PHENobarbitaL 260 MG in 0.9 % SODIUM CHLORIDE 100 ml 100 ML 208 MG IVPB (00:49)
[2023-03-14 03:10] VITALS: BP 154/94; PULSE 75; RESP 16; TEMP 36.8; O2SAT 92
[2023-03-14 03:11] VITALS: BP 154/94; PULSE 75; RESP 16; TEMP 36.8; O2SAT 92
--- NOTE | 2023-03-14 06:43 | PC.NURSE ---
[id number]: Patient up to use urinal x1 otherwise asleep entire shift. Appeared to rest comfortably.
[2023-03-14 07:00] VITALS: BP 172/93; PULSE 81; RESP 18; TEMP 37.2; O2SAT 97
[2023-03-14] MEDS: 0.9 % SODIUM CHLORIDE 1000 ml 1,000 ML 125 ML IV (07:46)
[2023-03-14 07:52] VITALS: PULSE 85
[2023-03-14] MEDS: OMEPRAZOLE 20 MG CAPSULE DR PO (08:12)
[2023-03-14] MEDS: METOPROLOL SUCCINATE (XL) 100 MG TAB PO (08:20)
[2023-03-14] MEDS: GABAPENTIN 600 MG TABLET PO (08:20)
[2023-03-14] MEDS: ROPINIROLE HCL 1 MG TABLET 2 MG PO (08:21)
[2023-03-14] MEDS: ACETAMINOPHEN 325 MG TABLET 975 MG PO (08:21)
[2023-03-14] MEDS: LORazepam 2 MG/ML inj IVP (08:22)
[2023-03-14 09:03] LABS: Chloride* 108 mmol/L (96-114); Potassium* 3.3 mmol/L (3.6-5.1); Sodium* 140 mmol/L (135-149)
[2023-03-14 09:06] LABS: Anion Gap 5 mEq/L (7-15); Blood Urea Nitrogen* 20 mg/dL (7-30); Carbon Dioxide* 27 mmol/L (20-32); Creatinine* 1.3 mg/dL (0.5-1.5); Est. Creatinine Clearance* 70.85; Estimated Glomerular Filt Rate 64 ml/min; Glucose* 80 mg/dL (60-115)
[2023-03-14 09:07] LABS: Calcium* 8.2 mg/dL (8.4-10.6)
[2023-03-14 09:27] LABS: Troponin I* 0.33 ng/mL (0.01-0.04)
[2023-03-14 10:03] VITALS: BP 172/98; PULSE 81; RESP 18; O2SAT 97
[2023-03-14] MEDS: LOPERAMIDE HCL 2 MG CAPSULE 4 MG PO (10:15)
[2023-03-14] MEDS: POTASSIUM BICARB 25 MEQ EFFERVESCENT TAB PO (11:47)
--- NOTE | 2023-03-14 13:47 | P.DS_ITS ---
DS: Providers Provider Time Seen by Provider: 12:00 Date Seen: 03/14/23 Date of admission: 03/12/23 13:33 Primary care physician: Ángel Pagan MD Admitting Clinician: Marcela Mari MD Attending Physician on discharge: Davina Rodriguez MD DS: Diagnosis Discharge Diagnosis (1) Acute hypotension: Status: Resolved Problem details: - resolved after IVF resuscitation - continue IVFs, close monitoring (2) Hypokalemia: Status: Acute Problem details: Magnesium level 03/13/23 is 2.2. KCl 3.3 on 03/14/23, was given prior to discharge. (3) Elevated troponin I level: Status: Acute Problem details: - suspect related to methamphetamine use. - Preliminary ECHO 03/14/23 showed LVF normal, EF 60-65%, LVH, mild TR, mild MR, moderate AI, MAC, no vegetations seen. - I have recommended abstinence from methamphetamine and outpatient stress testing. (4) Methamphetamine abuse: Status: Acute Problem details: - injects. Counseled regarding risks (5) Chronic pain: Status: Chronic Problem details: - patient is not on chronic narcotics, did have fall prior to admission with pain flare (no radiographic evidence of fracture) - will continue home dose of Gabapentin, NSAIDs contraindicated given ARF - add scheduled Tylenol, + Lidocaine patch, prn Vistaril, once/day Oxycodone for severe flare - therapies ordered - 03/13 patient requested oxycodone and flexeril stating that he takes these medications as an outpatient. (6) Alcohol dependence: Status: Acute Problem details: - likely contributing to ARF, patient not interested in cessation - last drink 1/3pm, on CIWA (7) Acute renal failure: Status: Acute Problem details: - admission creatinine 5.7, K of 3.1 - likely pre-renal azotemia 2/2 ETOH abuse/methamphetamine use, dehydration -- > improvement with IVF resuscitation - hold nephrotoxins - continue to follow renal function and potassium - does not require emergent dialysis at this, will likely need close outpatient f/u with PCP and Nephrology - 03/13 creatinine improving, 2.1 today. Potassium 3.5. Continue IV fluids if able to obtain IV access without central line. If unable, encourage oral fluids. Continue to hold diclofenac and lisinopril. Recheck labs in the morning. - 03/14 Cr 1.3. Holding diclofenac and lisinopril upon discharge home until he is seen by his PCP this week. (8) Schizophrenia: Status: Chronic Problem details: - [facility] - continue quetiapine. (9) Hyperlipidemia: Status: Chronic Problem details: LFTs improved, atorvastatin restarted on discharge. Will need follow up and consider stopping this medication if ongoing heavy alcohol use. (10) Hypertension: Status: Chronic Problem details: Holding lisinopril due to acute kidney injury. (11) Restless legs syndrome: Status: Chronic Problem details: Continue ropinirole DS: Summary Hospital Course Hospital Course: Per Admission H&P 03/12/23: Nicanor Alvarado is a 57 year old male who was BIBA to the ER last night for AMS after multiple falls at home. [place], and she called 911. Patient arrived to ED hypoxic and hypotensive, as well as bradypneic. ER Course and Findings: - IJ placed for fluid resuscitation - supplemental oxygen initiated, discontinued overnight - found to have USAMA with creatinine of 5.7, potassium 3.1 - no acute abnormalities on CT of head, C/A/P (without contrast) - negative d-dimer, troponin 0.26 (no CP) - UTox + for methamphetamines, THC, benzodiazepines. Negative ETOH - reassuring renal ultrasound Initially, transfer to tertiary care center planned; no beds available without our transfer area. Overnight, patients BP normalized and creatinine slowly improved with IVF rehydration. Potassium remained low-normal. Ten had a central catheter placed in the ED due to problems with IV access. During his hospital stay he frequently threatened to leave against medical advice and, despite a discussion about the risks of leaving AMA, he even had his uncle come to pick him up from the hospital on Wednesday afternoon. Due to this the central line was discontinued in anticipation that he was leaving AMA. The patient decided to stay once his uncle actually arrived. He continued to talk about leaving against medical advice during the duration of his hospital stay. USAMA improved and trop I peaked at 0.35. ECHO complete. Patient was counseled regarding risks of methamphetamine abuse and alcohol dependence. Tmo's mother was present for my conversation with him at the time of discharge in which we discussed recommendation to abstain from methamphetamine and alcohol as well as follow-up with primary care provider. He is discharged in improved and stable condition today. Time Spent with Patient Time attestation: Total time spent providing and/or coordinating discharge services: Exam Narrative: Exam Narrative: General: No acute distress. Awake, alert, oriented. No pallor. No jaundice. Oropharynx: Clear. Mucous membranes moist. Cardiovascular: Regular rate and rhythm. No murmurs, gallops, or rubs. Respiratory: Clear to auscultation bilaterally. No wheezes or crackles. Abdomen: Bowel sounds present. Soft, nondistended, nontender. Extremities: No pedal edema. Const: Vital Signs, click to edit/add: Vital Signs - 24 hr 03/13/23 15:10 03/13/23 15:45 03/13/23 15:45 Temperature 98 F Pulse Rate 78 Pulse Rate [Right Pulse Oximeter] 87 Respiratory Rate 18 Blood Pressure [Le ft Arm] 175/103 H Pulse Oximetry 94 94 Oxygen Delivery Pa thod Room Air Room Air Oxygen Flow Rate 03/13/23 18:38 03/13/23 19:04 03/13/23 23:00 Temperature 98.3 F 98.3 F Pulse Rate 81 Pulse Rate [Right Pulse Oximeter] 78 78 Respiratory Rate 18 16 Blood Pressure [Le ft Arm] 187/103 H 187/103 H Pulse Oximetry 95 95 Oxygen Delivery Pa thod Room Air Room Air Oxygen Flow Rate 03/13/23 23:00 03/13/23 23:09 03/13/23 23:10 Temperature 98.9 F 98.9 F Pulse Rate Pulse Rate [Right Pulse Oximeter] 75 75 Respiratory Rate 16 16 16 Blood Pressure [Le ft Arm] 181/102 H 181/102 H Pulse Oximetry 97 97 97 Oxygen Delivery Pa thod Room Air Room Air Room Air Oxygen Flow Rate 0 0 03/14/23 03:10 03/14/23 03:11 03/14/23 07:00 Temperature 98.3 F 98.3 F Pulse Rate Pulse Rate [Right Pulse Oximeter] 75 75 Respiratory Rate 16 16 18 Blood Pressure [Le ft Arm] 154/94 H 154/94 H Pulse Oximetry 92 92 97 Oxygen Delivery Pa thod Room Air Room Air Room Air Oxygen Flow Rate 03/14/23 07:00 03/14/23 07:00 03/14/23 07:52 Temperature 98.9 F 98.9 F Pulse Rate 85 Pulse Rate [Right Pulse Oximeter] 81 81 Respiratory Rate 18 18 Blood Pressure [Le ft Arm] 172/93 H 172/93 H Pulse Oximetry 97 97 Oxygen Delivery Me thod Room Air Room Air Oxygen Flow Rate 0 03/14/23 10:03 Temperature Pulse Rate Pulse Rate [Right Pulse Oximeter] 81 Respiratory Rate 18 Blood Pressure [Le ft Arm] 172/98 H Pulse Oximetry 97 Oxygen Delivery Me thod Room Air Oxygen Flow Rate DS: Data Data Completed and Pending Completed studies during hospitalization: 03/11/2023 EKG: Normal sinus rhythm, heart rate 76 beats per minute, minimal voltage criteria for LVH, maybe normal variant. ST and T-wave abnormality, consider inferior ischemia, ST and T-wave abnormality, consider anterolateral ischemia. Prolonged QT. 03/12/2023 EKG: Normal sinus rhythm, 87 beats per minute, minimal voltage criteria for LVH, maybe normal variant. Nonspecific T-wave abnormality, abnormal EKG. Ordering Physician: Salvatore Jorge D.O. Date of Service: 03/11/23 Procedure(s): CT cervical spine wo con Accession Number(s): [id number] cc: Salvatore Jorge D.O.; Ángel Pagan M.D.~ For Patients: As a result of the Century Cures Act, medical imaging exams and procedure reports are released immediately into your electronic medical record. You may view this report before your referring provider. If you have questions, please contact your health care provider. CLINICAL HISTORY: Trauma. TECHNIQUE: Helical CT acquisition of the cervical spine was performed. Coronal and sagittal reformations were performed and interpreted. COMPARISON: None available. FINDINGS: Prior C4-C6 ACDF. The surgical hardware is intact. There is no evidence of acute displaced fracture or traumatic malalignment of the cervical spine. The facets are well aligned. Vertebral body heights are maintained without evidence of significant compression deformity. No evidence of significant trauma at the craniocervical junction. Cervical spondylosis. Uncovertebral hypertrophy and facet arthropathy contribute to varying degrees of multilevel foraminal narrowing. No evidence of severe spinal canal stenosis. The visualized prevertebral soft tissues are unremarkable. The visualized lung apices are unremarkable. IMPRESSION: No acute displaced fracture or traumatic malalignment of the cervical spine. Please note that all CT scans at this facility use dose modulation, iterative reconstruction, and/or weight-based dosing when appropriate to reduce radiation dose to as low as reasonably achievable. Dictated by Murali Campbell MD @ 03/11/2023 9:42:11 PM (Electronically Signed) Ordering Physician: Salvatore Jorge D.O. Date of Service: 03/11/23 Procedure(s): CT chest abdomen pelv wo con Accession Number(s): [id number] cc: Salvatore Jorge D.O.; Ángel Pagan M.D.~ For Patients: As a result of the Cures Act, medical imaging exams and procedure reports are released immediately into your electronic medical record. You may view this report before your referring provider. If you have questions, please contact your health care provider. INDICATION: Falls. Pain. TECHNIQUE: CT chest, abdomen and pelvis without contrast. Multiplanar reformats are included. COMPARISON: Chest/abdomen/pelvis CT from 08/03/2019. FINDINGS: Chest: Imaged lower neck/chest wall: Right-sided MediPort terminates at the cavoatrial junction. No soft tissue findings. Mediastinum: Within normal limits. Lungs/pleura: Bibasilar atelectasis/scarring. Calcified granuloma left lung base. Abdomen/pelvis: Liver: Normal in size and attenuation. No suspicious masses. Gallbladder and bile ducts: No stones or inflammation. No biliary dilatation. Pancreas: Unremarkable. No mass or inflammation. Spleen: Normal in size. No masses. Adrenal glands: Normal in size. No nodules. Kidneys: Normal in size. No suspicious masses, stones, or hydronephrosis. GI tract: Large amount of stool throughout the colon. Diverticulosis. Normal appendix. Vasculature: Unremarkable. Lymph nodes: No lymphadenopathy. Abdominal wall/Omentum/Peritoneum: Unremarkable. No sign of mass or infiltration. No free air or significant free fluid. Fat containing umbilical hernia. Pelvis: Unremarkable. No pelvic masses. Bones: L4 thru S1 interbody/dorsal lateral fusion. Advanced disc degeneration at L2-3 and L3-4. Mild to moderate disc degeneration elsewhere. No acute fractures or other acute osseous abnormalities. IMPRESSION: 1. No acute process involving the chest, abdomen or pelvis. Please note that all CT scans at this facility use dose modulation, iterative reconstruction, and/or weight-based dosing when appropriate to reduce radiation dose to as low as reasonably achievable. Dictated by Papo Alberto MD @ 03/11/2023 9:28:07 PM (Electronically Signed) Ordering Physician: Salvatore Jorge D.O. Date of Service: 03/11/23 Procedure(s): CT head/brain wo con Accession Number(s): [id number] cc: Salvatore Jorge D.O.; Ángel Pagan M.D.~ For Patients: As a result of the Cures Act, medical imaging exams and procedure reports are released immediately into your electronic medical record. You may view this report before your referring provider. If you have questions, please contact your health care provider. CLINICAL HISTORY: Trauma. TECHNIQUE: Standard helical CT image acquisition of the brain was performed. COMPARISON: None available. FINDINGS: There is no intracranial hemorrhage, extra-axial collection, mass effect, or midline shift. Wetzel-white matter differentiation is preserved. The ventricles are normal in size and morphology. No displaced calvarial fracture. The orbits are unremarkable. The paranasal sinuses are unremarkable. The mastoid air cells are unremarkable. IMPRESSION: No CT evidence of acute intracranial abnormality or closed-head injury. Please note that all CT scans at this facility use dose modulation, iterative reconstruction, and/or weight-based dosing when appropriate to reduce radiation dose to as low as reasonably achievable. Dictated by Murali Campbell MD @ 03/11/2023 9:36:38 PM (Electronically Signed) Ordering Physician: Salvatore Jorge D.O. Date of Service: 03/11/23 Procedure(s): XR chest 1V portable Accession Number(s): [id number] cc: Salvatore Jorge D.O.; Ángel Pagan M.D.~ For Patients: As a result of the Cures Act, medical imaging exams and procedure reports are released immediately into your electronic medical record. You may view this report before your referring provider. If you have questions, please contact your health care provider. Indication: Shortness of breath. Technique: Frontal chest radiograph. Comparison: Chest CT from 08/03/2019. Findings: Interval placement of a right-sided central venous catheter with tip terminating in the inferior SVC region. No consolidation, effusion or pneumothorax. Mild pulmonary vascular congestion. Impression: 1. Interval placement of a right-sided central venous catheter with tip terminating in the region of the inferior SVC. No complications. Mild pulmonary vascular congestion. Dictated by Papo Alberto MD @ 03/11/2023 8:18:41 PM (Electronically Signed) Ordering Physician: Salvatore Jorge D.O. Date of Service: 03/12/23 Procedure(s): US renal Accession Number(s): [id number] cc: Salvatore Jorge D.O.; Ángel Pagan M.D.~ For Patients: As a result of the Cures Act, medical imaging exams and procedure reports are released immediately into your electronic medical record. You may view this report before your referring provider. If you have questions, please contact your health care provider. INDICATION: Acute kidney failure TECHNIQUE: Ultrasound renal and bladder complete. Wetzel-scale and color Doppler sonographic images were acquired of the kidneys and urinary bladder. COMPARISON: None FINDINGS: Right Kidney: Size: 13.0 x 5.8 x 6.1 centimeters. Cortical thickness 15 millimeters. Normal echogenicity without hydronephrosis. No masses or nephrolithiasis seen. Left Kidney: Size: 13.7 x 7.1 x 6.0 centimeters. Cortical thickness 20 millimeters. Normal echogenicity without hydronephrosis. No masses or nephrolithiasis seen. Exophytic simple cyst at the mid left kidney measuring 1.5 centimeters. Bladder: Decompressed with Bae catheter. IMPRESSION: Simple left renal cyst measuring 1.5 centimeters, essentially unremarkable renal ultrasound. No evidence of hydronephrosis. Dictated by Cristo Rodas MD @ 03/12/2023 7:43:07 AM (Electronically Signed) Labs on day of discharge: Labs from last 24 hours 03/14/23 08:25 Sodium 140 Potassium 3.3 L Chloride 108 Carbon Dioxide 27 Anion Gap 5 L BUN 20 Creatinine 1.3 Estimated Creat Clear 70.85 Estimated GFR 64 Glucose 80 Calcium 8.2 L Troponin I 0.33 H* Preliminary micro results at discharge 03/11/23 19:35 Blood Culture - Preliminary Blood NO GROWTH AFTER 48 HOURS 03/11/23 19:00 Blood Culture - Preliminary Blood NO GROWTH AFTER 48 HOURS Discharge Plan Discharge Disposition: Home, Self-Care Date of Admission: 03/12/23 13:33 Attending Provider on Discharge: Davina Rodriguez Primary Care Provider: Ángel Pagan Condition: Improved Anticipated Discharge Date/Time: 03/14/23 12:13 Discharge Medications: New thiamine mononitrate (vit B1) [Vitamin B-1 (mononitrate)] 100 mg Tablet 100 mg PO Q24H Qty: 30 0RF multivitamin Tablet 1 tab PO DAILY Qty: 30 0RF folic acid 1 mg tablet 1 mg PO DAILY Qty: 30 2RF Continued multivitamin [Daily Multi-Vitamin] Tablet 1 tab PO QDAY Ca carb-D3-mag [id number]-Zn 600 mg-20 mcg- 40 mg-0.25 mg tablet,chewable PO cyclobenzaprine 10 mg tablet 10 mg PO QHS Qty: 90 1RF desonide 0.05 % cream 1 applic topical BID Qty: 60 1RF loperamide [Imodium A-D] 2 mg tablet 2 mg PO Q6H PRN prazosin 2 mg capsule 2 mg PO QPM Qty: 90 3RF quetiapine [Seroquel] 400 mg tablet 600 mg PO QHS Qty: 45 1RF atorvastatin 20 mg tablet 20 mg PO QDAY Qty: 90 3RF propranolol 10 mg tablet 10 mg PO BID trazodone 100 mg tablet 100 mg PO QHS tamsulosin [Flomax] 0.4 mg capsule 0.4 mg PO QDAY Qty: 90 3RF ropinirole 2 mg tablet 2 mg PO BID Qty: 180 0RF metoprolol succinate 100 mg capsule,sprinkle,ER 24hr 100 mg PO QDAY Qty: 90 1RF omeprazole 20 mg capsule,delayed release(DR/EC) 20 mg PO QDAY Qty: 90 3RF valacyclovir 1 gram tablet 1,000 mg PO QDAY Qty: 90 0RF testosterone cypionate [Depo-Testosterone] 200 mg/mL oil 200 mg IM Q2W Qty: 6 1RF gabapentin 600 mg tablet 600 mg PO TID Qty: 270 1RF Held lisinopril 40 mg tablet 40 mg PO BID Qty: 180 1RF Hold Instructions: Resume on 03/22/23. Hold until you see your PCP for labs diclofenac sodium 75 mg tablet,delayed release (DR/EC) 75 mg PO BID Qty: 180 2RF Hold Instructions: Resume on 03/22/23. Hold until you see your PCP for labs Discontinued vardenafil 20 mg tablet 20 mg PO QDAY PRN Discharge Orders: Discharge Order (Routine); Ordered 03/14/23 Ordered By: Davina Rodriguez Patient Education: Thiamine (By mouth), Folic Acid (By mouth), Multivitamins, Adult Formula (By mouth), Dehydration (DC), Acute Kidney Injury (DC), Methamphetamine Use Disorder (DC) Additional Instructions: - Avoid methamphetamine and alcohol use. Activity Level: No Restrictions Discharge Diet: Low Fat/Low Cholesterol Follow Up Appointments: Ángel Pagan MD [Primary Care Provider] - (PLEASE CALL TO MAKE APPOINMENT WITH DR. PAGAN FOR WEDNESDAY OR WEDNESDAY AND HAVE BLOOD WORK (BASIC METABOLIC PANEL) DONE) Forms: [facility] Info Instructions
--- NOTE | 2023-03-14 15:30 | PC.NURSE ---
Discharge-- Pt cooperative this morning. VSS and pt is afebrile. SPO2 maintained >90% on RA. He c/o generalized aches and pains which he rated 3/10 and was given scheduled Tylenol with stated relief. CIWA 11 this morning r/t anxiety and pt disoriented to day. 1mg ativan given with minimal relief. Following CIWAs less than 9. Pt had loose incontinent BM this morning and stated that he has chronic diarrhea and takes Imodium at home. MD was notified and pt was given Imodium per MD order. Telemetry showed NSR. LS CTA. Pt ate a regular breakfast this morning without difficulty. Pt discharged to home this afternoon via wheelchair with mother. Discharge instructions were provided including diagnosis info, symptoms to report, medications and follow up plan. Mother was at bedside. Pt refused to sign discharge papers stating that you people told me that this would be stricken from my record. SL was removed with tip intact.
== END 2023-03-14 12:36 | disposition home or self-care (01) | DRG 683 ==
LOC: ED 03-12 12:25 → MEDSURG 03-12 14:31
PROVIDERS: Family Medicine; Internal Medicine; Admitting Provider Family Medicine; Emergency Provider Student in an Organized Health Care Education/Training Program; PCP Family Medicine; Visit Provider Family Medicine
DX: N17.9 Acute kidney failure, unspecified (principal); F15.20 Other stimulant dependence, uncomplicated; F10.20 Alcohol dependence, uncomplicated; R79.89 Other specified abnormal findings of blood chemistry; I95.9 Hypotension, unspecified; E86.0 Dehydration; F20.9 Schizophrenia, unspecified; F12.90 Cannabis use, unspecified, uncomplicated; E87.6 Hypokalemia; G89.29 Other chronic pain; Z91.81 History of falling; I10 Essential (primary) hypertension; G25.81 Restless legs syndrome; F43.10 Post-traumatic stress disorder, unspecified; E78.5 Hyperlipidemia, unspecified
CPT/HCPCS: 36415; 36556; 70450; 71045; 71250; 72125; 74176; 76775; 80048; 80053; 80306; 81001; 82077; 82550; 82565; 83605; 83735; 83880; 84100; 84484; 85025; 85379; 87040; 87086; 87631; 93005; 93306; 99284; 99291; A9270; G0390; J2060; J2560; J7030

== ENCOUNTER 2023-04-19 11:05 | Outpatient (CLI) | payer OTHER, SELFPAY ==
--- OUTSIDE RECORDS SUMMARY | 2023-04-19 11:08 | XMS_ITS | Encounter Summary ---
Author Name Unknown Organization [facility] Address [address], [place] [address] Care Team Providers Care Credit Interviewer Name Role Phone Briana Vazquez PA-C Primary Care Provider [phone] Reason for Referral * Consult/Transfer Care (Routine) - Closed Specialty Diagnoses / Procedures Referred By Pinky osorio Referred To Contact Diagnoses Encounter for long-term (current) [place] [address] [place] [address] Referral ID Status Reason Start Date Expiration Date Visits Re quested Visits Authorized [id number] Closed 12/30/2016 01/30/2017 1 1 Scheduling Instructions Your provider has recommended you to follow up with your Primary Bristle Machine Operator. If you are currently seeing a [facility] provider for your primary care needs, a production planner scheduler will contact you within the next 3 business days to assist you in setting up this appointment. To schedule your appointment you may call [phone]. We suggest you call your health insurance company about your coverage and benefits for this service. Question Answer What type of follow up? Routine Appointment Urgency? Non-Urgent Reason for visit? Medication Refill Comments SCHEDULE THE FOLLOWING: - OFFICE VISIT BY: 01/25/2017 (Coming due as of 01/25/2017 for multiple medications including tolterodine (DETROL) 2 MG tablet) - CREATININE BY: Now (Due [...] You can schedule your appointment online at [facility] or by calling the appointment center at the phone number listed above. Thank you for choosing [facility]. Tanna Yen RN [facility] Nurses Encounter Details Date Type Department Care Team Description 12/29/2016 Refill Order [facility] [address] [place] [address] [place] [address] [place] [address] Social History Tobacco Use Types Packs/Day Years Used Date Smoking Tobacco: Former Cigarettes 0.5 3 Cigars Smokeless Tobacco: Never Comments:Occasional cigar Alcohol Use Standard Drinks/Week Comments Yes 0 (1 standard drink = 0.6 oz pur e alcohol) Rare Sex and Gender Information Value Date Recorded Sex Assigned at Not on file Gender Identity Not on file Sexual Orientation Not on file documented as of this encounter Nursing Notes * Page Luther CMA - 12/30/2016 3:49 PM CDT Reviewed and pt notified. Page Luther CMA 12/30/2016, 3:49 PM documented in this encounter Plan of Treatment Scheduled Referrals Name Type Priority Associated Diagnoses Orde r Schedule Primary Care Follow-Up Referral Routine Encounter for long-term (current) use of medications Ordered: 12/30/2016 documented as of this encounter Visit Diagnoses Diagnosis Encounter for long-term (current) use of medications- Primary Encounter for long-term (current) use of other medications documented in this encounter Care Teams Credit Interviewer Relationship Specialty Start Date End Date Briana Vazquez PA-C [address] [place] [address] PCP - General Physician Electrical Fitter 11/29/19 documented as of this encounter
== END 2023-04-19 11:06 | disposition home or self-care (01) ==
PROVIDERS: PCP Family Medicine; Visit Provider Family Medicine
DX: I10 Essential (primary) hypertension (principal); N17.9 Acute kidney failure, unspecified; Z13.0 Encounter for screening for diseases of the blood and blood-forming organs and certain disorders involving the immune mechanism
CPT/HCPCS: 80053; 85025

== ENCOUNTER 2023-07-18 15:39 | Outpatient (CLI) | payer OTHER, MEDICAID, SELFPAY ==
--- OUTSIDE RECORDS SUMMARY | 2023-07-22 15:05 | XMS_ITS | Clinical Summary ---
Author Name Unknown Organization [facility] Address [address], [place] [address] Care Team Providers Care Wool Shearer Name Role Phone Briana Vazquez PA-C Primary Care Provider [phone] Source Comments You are receiving this document as you are listed as the primary care provider,follow-up provider, or the patient has been referred to you for consultation.This is in compliance with the Medicare and[facility] E[facility] Incentive [facility],which states Providers who transition their patient to another setting of careor provider of care or refers their patient to another provider of care shouldprovide summary care record for each transition of care or referral. [facility] Allergies No known active allergies Medications Medication Sig Dispensed Refills Start Date End Date Status amLODIPine (NORVASC) 5 MG tablet Take 1 Tablet (5 mg) by mouth daily. 90 Tablet 3 05/10/2023 05/10/19 25 Suspended Additional Information acetaminophen (TYLENOL) 325 MG tablet Take 2 Tablets (650 mg) by mouth every 6 hours as needed. 05/10/2023 Suspended Additional Information folic acid 1 MG tablet Take 1 Tablet (1 mg) by mouth daily. 30 Tablet 05/10/2023 Suspended Additional Information lidocaine (XYLOCAINE) 5 % ointment Apply topically to affected area(s) three times daily as needed. 35.44 g 05/10/2023 Suspended Additional Information omeprazole (PRILOSEC) 20 MG capsule Take 1 hour before a meal. 05/10/2023 Suspended QUEtiapine (SEROQUEL) 400 MG tabletIndicatio ns:Bipolar Mood Disorder Take 2 Tablets (800 mg) by mouth daily at bedtime. Indications: Manic-Depression 05/10/2023 07/20/19 24 Discontinued aspirin 81 MG chewable tablet Chew and swallow 1 Tablet (81 mg) by mouth daily. 05/10/2023 Suspended atorvastatin (LIPITOR) 40 MG tablet Take 1 Tablet (40 mg) by mouth every evening. 05/10/2023 Suspended gabapentin (NEURONTIN) 300 MG capsuleIndicati ons:Neuropathic Pain Take 2 Capsules (600 mg) by mouth three times a day. Indications: Neuropathic Pain 05/10/2023 Suspended metoprolol succinate (TOPROL XL) 25 MG 24 hour release tablet Take 1 Tablet (25 mg) by mouth daily. 05/10/2023 Suspended cyclobenzaprine (FLEXERIL) 10 MG tabletIndicatio ns:Muscle Spasm Take 1 Tablet (10 mg) by mouth three times a day as needed. Indications: Muscle Spasm 60 Tablet 05/10/2023 07/20/19 24 Discontinued(Pat ient Discharged) QUEtiapine (SEROQUEL) 100 MG tabletIndicatio ns:Bipolar Mood Disorder Take 1 Tablet (100 mg) by mouth three times a day. Indications: Manic-Depression 07/20/2023 Suspended Additional Information naltrexone (REVIA) 50 MG tabletIndicatio ns:Alcohol use disorder, severe, dependence (HRC) 1/2 tab x 2 days then 1 tab poqd 30 Tablet 1 07/20/2023 07/20/19 24 Discontinued(Pat ient Discharged) Active Problems Problem Noted Date Diagnosed Date Alcohol use disorder, severe, dependence 024 Sedative, hypnotic or anxiol ytic use disorder, severe, dependence 07/20/2023 Methamphetamine use disorder, severe, dependence 07/20/2023 Polysubstance abuse 07/19/2023 Ingestion of unknown drug 07/18/2023 Encephalopathy 05/09/2023 Troponin level elevated 05/08/2023 USAMA (acute kidney injury) 05/08/2023 Substance induced mood disorder 05/08/2023 Polysubstance dependence 05/08/2023 Methamphetamine use 05/07/2023 Benzodiazepine misuse 05/07/2023 Syncope 05/07/2023 S/P lumbar spinal fusion 05/07/2023 Erectile dysfunction 07/11/2018 Psychosis 09/17/2015 Anxiety disorder 09/11/2015 Bipolar affective disorder 09/11/2015 Overview: Psychiatrist is Coretta Hawkins at [facility] although does video calls with her 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 Alcohol use disorder 09/11/2015 Migraine headache 11/19/2009 Hypertension 02/27/2009 Hyperlipidemia with target LDL less than 130 Overview: ICD 10 Genital herpes 02/27/2009 Generalized headaches 02/27/2009 Chronic low back pain 02/27/2009 GERD (gastroesophageal reflux disease) 9 Encounters Date Type Department Care Team Description 07/20/2023 3:13 PM CDT - Present Hospital Encounter [facility] NE4 [address] [place] [address] Kristin Rutledge, Remi Gonzales MD 07/19/2023 10:05 AM CDT Ancillary Procedure [facility] [address] [place] [address] 07/18/2023 8:14 PM CDT - 07/20/2023 3:10 PM CDT Hospital Encounter RH S7 [address] [place] [address] Sánchez Ramírez, Camilo Rivas, LISETTEC Sarah Aguirre MD Robertson, Jason M, MD Shah, Shemal M, USAMA (acute kidney injury) (HRC) (Primary Dx); Intentional overdose, initial encounter (HRC); Agitation; Tachycardia; Hypertension, unspecified type (HRC); Methamphetamine use disorder, severe, dependence (HRC); Sedative, hypnotic or anxiolytic use disorder, severe, dependence (HRC); Alcohol use disorder, severe, dependence (HRC) Discharge Disposition: Inpatient Psychiatric Facility 07/18/2023 Partner ED HIM DEPARTMENT Provider, MD DEA Bailon [facility] 07/18/2023 05/08/2023 6:31 PM DIRECTOR [employer] - 05/10/2023 11:33 AM DIRECTOR [employer] Hospital Encounter RH NE4 [address] [place] [address] Genet Crawley MD S/P lumbar spinal fusion (Primary Dx); Elevated troponin Discharge Disposition: Home 05/07/2023 4:45 PM [employer] Ancillary Procedure [facility] [address] [place] [address] 05/07/2023 5:30 AM [employer] Ancillary Procedure [facility] [address] [place] [address] 05/07/2023 5:15 AM [employer] Ancillary Procedure [facility] [address] [place] [address] 05/07/2023 3:28 AM [employer] - 05/08/2023 6:04 PM [employer]OR [employer] Hospital Encounter RH C61 [address] [place] [address] Shanta Kaur MD Schnitker, Callie K, MD Wilson, Zaki Ledesma MD Syncope and collapse (Primary Dx); USAMA (acute kidney injury) (HRC); Hypokalemia; Acute electrocardiogram changes; Elevated troponin; Acute respiratory failure with hypoxia (HRC); Symptomatic hypotension; Blood alcohol request Discharge Disposition: Inpatient Psychiatric Facility from Last 3 Months Immunizations Name Administration Dates Next Due HepB Adult (Engerix-B, 20+ y rs, 3 dose series) 12/10/2017,05/27/2017,01/31/2016 Influenza, Unspecified Formulation 01/08,01/08/2005,01/04/2002,1999 Moderna Monovalent 12+ 06/21/2020,05/24/2020 Td 05/21/2003 Tdap 05/03/2012 Zoster RZV (Shingrix) [...] place to sleep or slept in a senior care (including now)? No 05/07/2023 Sex and Gender Information Value Date Recorded Sex Assigned at Not on file Gender Identity Not on file Sexual Orientation Not on file Last Filed Vital Signs Vital Sign Reading Time Taken Comments Blood Pressure 132/90 07/22/2023 8:48 AM CDT Pulse 94 07/22/2023 8:48 AM CDT Temperature 36.6 ??C (97.9 ??F) 07/22/2023 8:48 AM CD T Respiratory Rate 18 07/22/2023 8:48 AM CDT Oxygen Saturation 98% 07/22/2023 8:48 AM CDT Inhaled Oxygen Concentration - - Weight 85.1 kg (187 lb 9.6 oz) 07/20/2023 3:00 P M CDT Height 185.4 cm (6' 1) 07/20/2023 3:00 PM CDT Body Mass Index 24.75 07/20/2023 3:00 PM CDT Plan of Treatment Health Maintenance Due Date Last Done Comments Colon Cancer Screening Plan Due 1965 Medicare Welcome Visit 1965 PSA Screening Discussion 1965 Pneumococcal (1 - PCV) 12/09/1971 DTaP/Tdap/Td (2 - Tdap) 05/03/2022 05/03/2012, 05/20 COVID-19 Vaccine (6 - 2023-24 season) 2022 11/27/2021, 07/17/2021, 02/05/2021, Additional history exists Influenza (Season Ended) 2023 006, 01/08/2005, 12/28/2002, Additional history exists Cholesterol 05/06/2028 05/07/2023, 06/06, 12/10/2017, Additional history exists HIV Screening (Preventive Services) Completed 05/27/2017, 09/17/2015, 12/07/2011, Additional history exists Hep C Screening (Preventive Services) Completed 05/27/2017, 08/12/2009 HepB Completed 12/10/2017, 05/07, 01/31/2016 Zoster/Shingles Completed 01/20/2021, 11/06, 05/09/2018, Additional history exists HepA Aged Out No longer eligi ble based on patient's age to complete this topic Hib Aged Out No longer eligi ble based on patient's age to complete this topic IPV (Polio) Aged Out No longer eligi ble based on patient's age to complete this topic [email or web address] Aged Out No longer eligi ble based on patient's age to complete this topic Procedures The patient is currently admitted. The information in this section might not be complete until the patient is discharged. Procedure Name Priority Date/Time Associated Diagnosis Comments MAGNESIUM Routine 07/20/2023 9:05 AM CDT CK, TOTAL Routine 07/20/2023 9:05 AM CDT COMPREHENSIVE METABOLIC PANEL Routine 07/20/2023 9:05 AM CDT COMPLETE BLOOD COUNT-NO DIFF Routine 07/20/2023 9:05 AM CDT INPATIENT TELEMETRY MONITORING Routine 07/20/2023 7:29 AM CDT INPATIENT TELEMETRY MONITORING Routine 07/19/2023 11:16 PM CDT INPATIENT TELEMETRY MONITORING Routine 07/19/2023 7:00 PM CDT C.DIFFICILE TOXIN,MOLECULAR DETECTION Routine 07/19/2023 6:28 PM CDT BENZODIAZEPINES, URINE, QUANTITATIVE Routine 07/19/2023 6:26 PM CDT AMPHETAMINES CONFIRMATION, URINE Routine 07/19/2023 6:26 PM CDT RAPID DRUG PANEL, URINE (WITH CONFIRMATION) Routine 07/19/2023 6:26 PM CDT POTASSIUM Specified Time 07/19/2023 4:[address] HEAD WO IV CONT STAT 07/19/2023 12:14 PM CDT IV INSERTION(LAB TO PERFORM) STAT 07/19/2023 8:37 AM CDT TSH, SENSITIVE Add-On 07/19/2023 5:47 AM CDT CK, TOTAL Routine 07/19/2023 5:47 AM CDT BASIC METABOLIC PANEL Routine 07/19/2023 5:47 AM CDT COMPLETE BLOOD COUNT-NO DIFF Routine 07/19/2023 5:47 AM CDT IV INSERTION(LAB TO PERFORM) STAT 07/19/2023 4:51 AM CDT IV INSERTION(LAB TO PERFORM) STAT 07/19/2023 12:45 AM CDT BLOOD GAS, VENOUS STAT 07/19/2023 12:45 AM CDT BASIC METABOLIC PANEL STAT 07/19/2023 12:45 AM CDT INPATIENT TELEMETRY MONITORING Routine 07/19/2023 12:04 AM CDT 11040 LACTATE, WHOLE BLOOD Routine 07/18/2023 10:18 PM CDT BT SECOND DRAW Routine 07/18/2023 8:50 PM CDT EXTRA BLUE TOP TUBE Routine 07/18/2023 8 :45 PM CDT EXTRA PINK/BANK TUBE Routine 07/18/2023 8:45 PM CDT PHOSPHORUS STAT Add-On 07/18/2023 8:44 PM CDT MAGNESIUM STAT Add-On 07/18/2023 8:44 PM CDT BETA HYDROXYBUTYRATE STAT Add-On 07/18/2023 8:44 PM CDT CK, TOTAL STAT Add-On 07/18/2023 8:44 PM CDT SALICYLATE STAT 07/18/2023 8:44 PM CDT ACETAMINOPHEN STAT 07/18/2023 8:44 PM CDT COMPLETE BLOOD COUNT-NO DIFF STAT 07/18/2023 8:44 PM CDT BASIC METABOLIC PANEL STAT 07/18/2023 8:44 PM CDT ALCOHOL,ETHYL STAT 07/18/2023 8:44 PM CDT ECG-ROUTINE 12 LEAD; INTRPT & REPRT STAT 07/18/2023 8:29 PM CDT BASIC METABOLIC PANEL Routine 05/10/2023 8:06 AM DIRECTOR [employer] CK, TOTAL Add-On 05/08/2023 8:37 AM [employer] LIVER PANEL(HEPATIC FUNCTION PANEL) Routine 05/08/2023 8:37 AM [employer] BASIC METABOLIC PANEL Routine 05/08/2023 8:37 AM [employer] COMPLETE BLOOD COUNT-NO DIFF Routine 05/08/2023 8:37 AM [employer] INPATIENT TELEMETRY MONITORING Routine 05/08/2023 7:18 AM [employer] INPATIENT TELEMETRY MONITORING Routine 05/07/2023 11:31 PM [employer] INPATIENT TELEMETRY MONITORING Routine 05/07/2023 11:31 PM [employer] CK, TOTAL Add-On 05/07/2023 9:09 PM [employer] TROPONIN I STAT 05/07/2023 9:09 PM [employer] US RENAL W BLADDER Routine 05/07/2023 8: 19 PM [employer] INPATIENT TELEMETRY MONITORING Routine 05/07/2023 4:25 PM [employer] TROPONIN I Specified Time 05/07/2023 4:06 PM [employer] URINE DRUG COMPREHENSIVE PANEL (WITH CONFIRMATION) Routine 05/07/2023 2:52 PM [employer] RAPID DRUG PANEL, URINE (WITH CONFIRMATION) Routine 05/07/2023 2:52 PM [employer] RAPID FENTANYL, URINE (WITH CONFIRMATION) Routine 05/07/2023 2:52 PM [employer] CREATININE,UR RANDOM Routine 05/07/2023 2:52 PM [employer] SODIUM, URINE RANDOM Routine 05/07/2023 2:52 PM [employer] UA CONDITIONAL UC STAT 05/07/2023 2:5 2 PM [employer] PHOSPHATIDYLETHANOL (PETH), QUANTITATIVE Routine 05/07/2023 2:11 PM [employer] XA UNFRACTIONATED HEPARIN Specified Time 2023 2:11 PM [employer] ANTI-XA (HEPARIN AND LMWH LEVEL)/FONDAPARINUX ASSAY Specified Time 05/07/2023 2:11 PM [employer] EJECTION FRACTION Routine 05/07/2023 1:1 5 PM [employer] CARDIAC ROUTINE ECHOCARDIOGRAM Routine 05/07/2023 1:15 PM [employer] LIPID PANEL & DIRECT LDL (IF NEEDED) Add-On 05/07/2023 12:06 PM [employer] TROPONIN I STAT 05/07/2023 12:06 PM [employer] TROPONIN I Specified Time 05/07/2023 9:36 AM [employer] RSV, MOLECULAR DETECTION STAT 024 9:35 AM [employer] INFLUENZA VIRUS A AND B, MOLECULAR DETECTION STAT 05/07/2023 9:35 AM [employer] 2019 NOVEL CORONAVIRUS STAT 4 9:35 AM [employer]OR [employer] COVID/INFLUENZA A&B/RSV STAT 05/07/19 24 9:35 AM [employer] BLOOD GAS, VENOUS STAT 05/07/2023 7:3 7 AM [employer] [address]0480 ELECTROCARDIOGRAM TRACING STAT 05/07/2023 6:30 AM [employer] CREATININE / GFR STAT Add-On 05/07/2023 6:22 AM [employer] TROPONIN I Specified Time 05/07/2023 6:22 AM [employer] 12948 LACTATE, WHOLE BLOOD Routine 05/07/2023 6:[address] [employer] ANGIO CHEST W IV CONT PE STUDY STAT 05/07/2023 5:47 AM [employer] POC US BASIC CARDIAC Routine 05/07/2023 5:13 AM [employer] 39968 ELECTROCARDIOGRAM TRACING STAT 05/07/2023 5:01 AM [employer] INR/PROTIME STAT Add-On 05/07/2023 4:20 AM [employer] APTT (ACTIVATED PARTIAL THROMBOPLASTIN TIME STAT Add-On 05/07/2023 4:20 AM [employer]OR [employer] BRAIN NATRIURETIC PEPTIDE (BNP) STAT Add-On 05/07/2023 4:20 AM [employer]OR [employer] LIVER PANEL(HEPATIC FUNCTION PANEL) STAT Add-On 05/07/2023 4:20 AM [employer] D DIMER, QUANTITATIVE STAT Add-On 05/07/2023 4:20 AM [employer] EXTRA BLUE TOP TUBE Routine 05/07/2023 4 :20 AM [employer]OR [employer] MAGNESIUM STAT 05/07/2023 4:20 AM [employer] ALCOHOL,ETHYL STAT 05/07/2023 4:20 AM [employer] TROPONIN I Specified Time 05/07/2023 4:20 AM [employer] COMPLETE BLOOD COUNT-NO DIFF STAT 05/07/2023 4:20 AM [employer] BASIC METABOLIC PANEL STAT 05/07/2023 4:20 AM [employer] HIV 1/2 AG/AB 4TH GEN Routine 05/27/2017 2:42 PM CDT Screening for viral disease HEPATITIS C ANTIBODY, WITH REFLEX Routine 05/27/2017 2:42 PM CDT Screening for viral disease from Last 3 Months or Most Recently Relevant to Health Maintenance Results * (ABNORMAL) Comprehensive Metabolic Panel (07/20/2023 9:05 AM CDT) [facility] Sodium 141 136 - 145 mmol/L 07/20/2023 9:44 AM [facility] Potassium 4.1 3.5 - 5.1 mmol/L 07/20/2023 9:44 AM [facility] Comment:Specimen slightly he molyzed. Hemolysis may affect result. Chloride 104 98 - 109 mmol/L 07/20/2023 9:44 [facility] CO2 25 20 - 29 mmol/L 07/20/2023 9:44 AM [facility] Anion Gap 12 6 - 16 mmol/L 07/20/2023 9:44 AM [facility] Calcium 9.7 8.4 - 10.4 mg/dL 07/20/2023 9:44 AM [facility] BUN 15 7 - 26 mg/dL 07/20/2023 9:44 AM [facility] Creatinine 1.10 0.73 - 1.18 mg/dL 07/20/2023 9:44 [facility] Alkaline Phosphatase 73 40 - 150 U/L 07/20/2023 9:44 AM [facility] AST (SGOT) 87(H) 10 - 40 U/L 07/20/2023 9:44 AM [facility] Comment:Specimen slightly he molyzed. Hemolysis may affect result. ALT (SGPT) 43 <=55 U/L 07/20/2023 9:44 AM [facility] Bilirubin, Total 1.1 0.2 - 1.2 mg/dL 07/20/2023 9:44 AM [facility] Protein, Total 7.3 6.4 - 8.3 g/dL 07/20/2023 9:44 [facility] Albumin 3.5 3.5 - 5.0 g/dL 07/20/2023 9:44 AM [facility] Glucose 83 70 - 100 mg/dL 07/20/2023 9:44 AM [facility] Comment:The given reference range is for the fasting state. Non-fasting reference range for glucose is 70 - 180 mg/dL. GFR, Estimated >60 >60 mL/min/1.7 3m2 07/20/2023 9:44 [facility] Blood Venipuncture / Unknown 07/20/2023 9:05 AM T 07/20/2023 9:10 AM CDT Sarah Aguirre MD LAB_[address] * (ABNORMAL) Complete Blood Count-No Diff (07/20/2023 9:05 AM CDT) Only the most recent of5 resultswithin the time period is included. WBC 8.8 3.5 - 10.5 x10(9)/L 07/20/2023 9:47 AM [facility] RBC 5.95(H) 4.32 - 5.72 x10(12)/L 07/20/2023 9:47 AM [facility] Hemoglobin 17.7(H) 13.5 - 17.5 g/dL 07/20/2023 9:47 AM [facility] HCT 52.6(H) 38.8 - 50.0 % 07/20/2023 9:47 AM [facility] MCV 88.4 80.0 - 100.0 fL 07/20/2023 9:47 AM [facility] MCH 29.7 27.6 - 33.3 pg 07/20/2023 9:47 AM [facility] MCHC 33.7 31.5 - 35.2 g/dL 07/20/2023 9:47 AM [facility] RDW 13.9 11.9 - 15.5 % 07/20/2023 9:47 AM [facility] Platelets 178 150 - 450 x10(9)/L 07/20/2023 9:47 AM [facility] Automated NRBC 0 <=0 /100 WBC 07/20/2023 9:47 AM [facility] Blood Venipuncture / Unknown 07/20/2023 9:05 AM CDT 07/20/2023 9:10 AM CDT Sarah Aguirre MD LAB_[address] * Magnesium (07/20/2023 9:05 AM CDT) Only the most recent of3 resultswithin the time period is included. Pathologist [facility] Magnesium 2.1 1.6 - 2.6 mg/dL 07/20/2023 9:[address] [facility] Blood Venipuncture / Unknown 07/20/2023 9:05 AM CDT 07/20/2023 9:10 AM CDT Devendra Hensley DO LAB_1 Performing Organization Address [facility] Co de Phone Number [address] * (ABNORMAL) CK, Total (07/20/2023 9:05 AM CDT) Only the most recent of5 resultswithin the time period is included. Pathologist [facility] CK, Total 375(H) 30 - 200 U/L 07/20/2023 9:[address] [facility] Blood Venipuncture / Unknown 07/20/2023 9:05 AM CDT 07/20/2023 9:10 AM CDT Sarah Aguirre MD LAB_1 Performing Organization Address [facility] de Phone Number [address] * INPATIENT TELEMETRY MONITORING (07/20/2023 7:29 AM CDT) Only the most recent of8 resultswithin the time period is included. Pathologist [facility] TELE P-R INTERVAL 0.17 [facility] TELE QRS DURATION 0.08 [facility] TELE R-R INTERVAL 0.66 [facility] TELE QT 0.32 [facility] TELE INTERPRETATION Sinus Rhythm JEANNINE PUCKETT [facility] 07/20/2023 7:29 AM CDT Narrative [facility] - 07/20/2023 10:15 AM CDT Sinus Rhythm ??JEANNINE PUCKETT Uvaldo Provider EKG Performing Organization Address [facility] de Phone Number [facility] [address] [place] [address] * C.Difficile Toxin,Molecular Detection,This order expires in 24 hours. Do NOT collect after: 07/20/2023; at: 3:15 PM (07/19/2023 6:28 PM CDT) Pathologist [facility] C.difficile by PCR Not Detected Not Detected 07/19/2023 7:40 PM [facility] Stool Non-blood Collection / Unknown 07/19/2023 6:28 PM CDT 07/19/2023 6:41 PM CDT [facility] - 07/19/2023 7:40 PM CDT Comment: A single negative test for C. difficile means the likelihood this organism is causing the diarrheal illness is extremely low. ??Therefore repeat testing within 7 days of the same diarrheal episode is strongly discouraged. Sarah Aguirre MD LAB_1 Performing Organization Address City/State/[facility] Co de Phone Number [id number] [place] [address] * (ABNORMAL) Benzodiazepines, Urine, Quantitative (07/19/2023 6:26 PM CDT) [facility] Clonazepam Metab 7-Aminoclonaze mitzi, urine Not Detected Not Detected 07/21/2023 10:01 AM [facility] Alprazolam, urine Not Detected Not Detected 07/21/2023 10:01 AM [facility] Clonazepam, urine Not Detected Not Detected 07/21/2023 10:01 AM [facility] Diazepam, urine Not Detected Not Detected 07/21/2023 10:01 AM [facility] Lorazepam, urine Confirmed Positive(A) Not Detected 07/21/2023 10:01 AM [facility] Nordiazepam, urine Confirmed Positive(A) Not Detected 07/21/2023 10:01 AM [facility] Oxazepam, urine Not Detected Not Detected 07/21/2023 10:01 AM [facility] Temazepam, urine Confirmed Positive(A) Not Detected 07/21/2023 10:01 AM [facility] [id number] zolam, urine Not Detected Not Detected 07/21/2023 10:01 AM [facility] Urine URINE SPECIMEN COLLECTION, CLEAN CATCH / Unknown Non-blood Collection / Unknown 07/19/2023 6:26 PM CDT 07/19/2023 6:42 PM CDT [facility] - 07/21/2023 10:01 AM CDT The absence of expected drug(s) and/or drug [...] developed and its performance characteristics validated by [facility]. It has not been cleared nor approved by the [facility]. Genet Treadwell PA-C LAB_1 [facility] [address] [place], [place] [address] * (ABNORMAL) Amphetamines Confirmation, Urine (07/19/2023 6:26 PM CDT) Pathologist [facility] Amphetamine, urine Confirmed Positive(A) Not Detected 07/21/2023 10:[address] [facility] Methamphetami ne, urine Confirmed Positive(A) Not Detected 07/21/2023 10:[address] [facility] Ecstasy MDMA, urine Not Detected Not Detected 07/21/2023 10:[address] [facility] Ecstasy Metab MDA, urine Not Detected Not Detected 07/21/2023 10:[address] [facility] Urine URINE SPECIMEN COLLECTION, CLEAN CATCH / Unknown Non-blood Collection / Unknown 07/19/2023 6:26 PM CDT 07/19/2023 6:42 PM CDT [facility] - 07/21/2023 10:01 AM CDT The absence of expected drug(s) and/or drug [...] developed and its performance characteristics validated by [facility]. It has not been cleared nor approved by the FDA. Genet Treadwell PA-C LAB_[address] [address], [facility] * (ABNORMAL) Rapid Drug Panel, Urine (with Confirmation) with THC (07/19/2023 6:26 PM CDT) Only the most recent of2 resultswithin the time period is included. [facility] Amphetamines Screen Presumptive Positive(A) Not Detected 07/19/2023 7:[address] [facility] Barbiturates Screen Not Detected Not Detected 07/19/2023 7:[address] [facility] Benzodiazepines Screen Presumptive Positive(A) Not Detected 07/19/2023 7:[address] [facility] Buprenorphine Screen Not Detected Not Detected 07/19/2023 7:06 PM [facility] Cocaine Metabolite Screen Not Detected Not Detected 07/19/2023 7:06 PM [facility] Methadone Screen Not Detected Not Detected 07/19/2023 7:[address] [facility] Opiates Screen Not Detected Not Detected 07/19/2023 7:06 PM [facility] Oxycodone Screen Not Detected Not Detected 07/19/2023 7:[address] [facility] Phencyclidine (PCP) Screen Not Detected Not Detected 07/19/2023 7:06 PM [facility] THC (Marijuana) Metab Screen Not Detected Not Detected 07/19/2023 7:06 PM [facility] Creatinine, Urine, Random 42 >20 mg/dL 07/19/2023 7:06 PM [facility] Urine URINE SPECIMEN COLLECTION, CLEAN CATCH / Unknown Non-blood Collection / Unknown 07/19/2023 6:26 PM CDT 07/19/2023 6:42 PM CDT [facility] - 07/19/2023 7:06 PM CDT The absence of expected drug(s) and/or drug metabolite(s) may indicate non-compliance, inappropriate timing of specimen collection relative to drug administration, poor drug absorption, diluted/adulterated urine or limitations of testing. The concentration must be greater than or equal to the cutoff concentration to be reported as positive. For medical purposes only: not valid for forensic, legal, or employment use. Genet Treadwell PA-C LAB_1 Performing Organization Address [facility]/ZIP Co de Phone Number [address] * (ABNORMAL) Potassium (07/19/2023 4:29 PM CDT) Potassium 3.4(L) 3.5 - 5.1 mmol/L 07/19/2023 4:[address] [facility] Comment:Specimen slightly he molyzed. Hemolysis may affect result. Blood Venipuncture / Unknown 07/19/2023 4:29 PM CDT 07/19/2023 4:35 PM CDT Sarah Aguirre MD LAB_1 Performing Organization Address [facility] Co de Phone Number [address] * CT Head WO IV Cont (07/19/2023 12:14 PM CDT) Anatomical Region Laterality Modality Head Computed Tomogra phy 07/19/2023 12:1 4 PM CDT Narrative 07/19/2023 12:49 PM CDT EXAM: CT HEAD WO IV CONT LOCATION: [facility] DATE: 07/19/2023 INDICATION: Hallucinations, confusion, unknown baseline and recent fall (at home). Concern mass vs bleed. COMPARISON: None. TECHNIQUE: Routine CT Head without IV contrast. Multiplanar reformats. Dose reduction techniques were used. FINDINGS: INTRACRANIAL CONTENTS: No finding for intracranial hemorrhage, mass, or acute infarct. Ventricles, sulci, and cisterns are unremarkable size for age. Normal obrien-white matter differentiation. No mass effect or midline shift. Cerebellar tonsils are normally positioned. Sella is unremarkable for technique. Corpus callosum is normally formed. VISUALIZED ORBITS/SINUSES/MASTOIDS: Punctate calcification is seen along the left eyelid. Orbits otherwise unremarkable. No paranasal sinus mucosal disease. No middle ear or mastoid effusion. BONES/SOFT TISSUES: Calvarium is intact, without suspicious lytic or blastic foci. IMPRESSION: 1. ??No finding for intracranial hemorrhage, mass, or acute infarct. Procedure Note Karl Han II, MD - 07/19/2023 EXAM: CT HEAD WO IV CONT LOCATION: [facility] DATE: 07/19/2023 INDICATION: Hallucinations, confusion, unknown baseline and recent fall(at home). Concern mass vs bleed. COMPARISON: None. TECHNIQUE: Routine CT Head without IV contrast. Multiplanar reformats.Dose reduction techniques were used. FINDINGS: INTRACRANIAL CONTENTS: No finding for intracranial hemorrhage, mass, oracute infarct. Ventricles, sulci, and cisterns are unremarkable size forage. Normal obrien-white matter differentiation. No mass effect or midlineshift. Cerebellar tonsils are normally positioned. Sella is unremarkable fortechnique. Corpus callosum is normally formed. VISUALIZED ORBITS/SINUSES/MASTOIDS: Punctate calcification is seen alongthe left eyelid. Orbits otherwise unremarkable. No paranasal sinus mucosaldisease. No middle ear or mastoid effusion. BONES/SOFT TISSUES: Calvarium is intact, without suspicious lytic orblastic foci. IMPRESSION: 1. No finding for intracranial hemorrhage, mass, or acute infarct. Sarah Aguirre MD RAD CT * IV Insertion, LST Perform (07/19/2023 8:37 AM CDT) Only the most recent of3 resultswithin the time period is included. IV INSERTION, LST PERFORM (LAB) Done 07/19/2023 10:[address] [facility] Other Specimen Type IV Start / Unknown 07/19/2023 8:37 AM CDT 07/19/2023 8:45 AM CDT Sarah Aguirre MD LAB_1 [facility] [address] [place] [address], [facility] * TSH (07/19/2023 5:47 AM CDT) TSH, Sensitive 0.57 0.30 - 4.50 uIU/mL 07/19/2023 10:[address] [facility] Blood Venipuncture / Unknown 07/19/2023 5:47 AM CDT 07/19/2023 6:06 AM CDT Sarah Aguirre MD LAB_1 Performing Organization Address City/[facility]/ZIP Co de Phone Number [address] * (ABNORMAL) Basic Metabolic Panel (07/19/2023 5:47 AM CDT) Only the most recent of6 resultswithin the time period is included. Pathologist [facility] Sodium 138 136 - 145 mmol/L 07/19/2023 6:40 AM [facility] Potassium 3.3(L) 3.5 - 5.1 mmol/L 07/19/2023 6:40 AM [facility] Chloride 104 98 - 109 mmol/L 07/19/2023 6:40 AM [facility] CO2 21 20 - 29 mmol/L 07/19/2023 6:40 AM [facility] Anion Gap 13 6 - 16 mmol/L 07/19/2023 6:40 AM [facility] Calcium 9.1 8.4 - 10.4 mg/dL 07/19/2023 6:40 AM [facility] BUN 34(H) 7 - 26 mg/dL 07/19/2023 6:40 AM [facility] Creatinine 2.11(H) 0.73 - 1.18 mg/dL 07/19/2023 6:40 AM [facility] Glucose 80 70 - 100 mg/dL 07/19/2023 6:40 AM [facility] Comment:The given reference range is for the fasting state. Non-fasting reference range for glucose is 70 - 180 mg/dL. GFR, Estimated 36(L) >60 mL/min/1.7 3m2 07/19/2023 6:40 AM [facility] Blood Venipuncture / Unknown 07/19/2023 5:47 AM CDT 07/19/2023 6:06 AM CDT Camilo Montero PA-C LAB_1 Performing Organization Address City/[facility]/ZIP Co de Phone Number [address] * (ABNORMAL) Blood Gas, Venous (07/19/2023 12:45 AM CDT) Only the most recent of2 resultswithin the time period is included. Pathologist [facility] PH, Venous 7.41 7.31 - 7.41 07/19/2023 12:54 AM [facility] PCO2, Venous 46 40 - 52 mmHg 07/19/2023 12:54 AM [facility] PO2, Venous 32 30 - 50 mmHg 07/19/2023 12:54 AM [facility] HCO3, Calculated 28.9 23.0 - 30.0 mmol/L 07/19/2023 12:54 AM [facility] O2 Saturation, Measured, Venous 59.5(L) 60.0 - 80.0 % 07/19/2023 12:54 AM [facility] Base Excess, Calculated 3.1(H) -2.0 - 2.0 mmol/L 07/19/2023 12:54 AM [facility] Blood Venipuncture / Unknown 07/19/2023 12:45 AM CDT 07/19/2023 12:50 AM CDT Sánchez Ramírez DO LAB_1 Performing Organization Address [facility] Co de Phone Number [address] * (ABNORMAL) Lactate Panel, Venous POCT (07/18/2023 10:18 PM CDT) Only the most recent of2 resultswithin the time period is included. [facility] Lactate, Whole Blood 0.78 0.50 - 2.00 mmol/L 07/18/2023 10:21 PM [facility] PO2, Venous 129(H) 30 - 50 mmHg 07/18/2023 10:21 PM [facility] Performing Location [facility] ED B 07/18/2023 10:21 PM [facility] Blood 07/18/2023 10:1 8 PM CDT 07/18/2023 10:21 PM CDT Sánchez Ramírez DO LAB_1 Performing Organization Address City/[facility]/ZIP Co de Phone Number [address] * Blood Type second draw (07/18/2023 8:50 PM CDT) [facility] ABO O 07/18/2023 9:34 PM CDT [facility] RH Positive 07/18/2023 9:34 PM CDT [facility] Blood Venipuncture / Unknown 07/18/2023 8:50 PM CDT 07/18/2023 9:07 PM CDT Hilary Reyna MD LAB_1 Performing Organization Address [facility] Co de Phone Number [facility] [address] [place] [address] * Extra Blue top tube (07/18/2023 8:45 PM CDT) Only the most recent of2 resultswithin the time period is included. Extra Blue Top Drawn Specimen will be held for 24 hours 07/18/2023 10:[address] [facility] Blood 07/18/2023 8:45 PM CDT 07/18/2023 9:00 PM CDT Cristo Lozano MD LAB_1 Performing Organization Address [facility] Co de Phone Number [address] * Extra [place]/BB Hold (07/18/2023 8:45 PM CDT) Pathologist [facility] Extra [place]/Bank Tube Drawn Received in BB 07/18/2023 9:06 PM CDT [facility] Blood 07/18/2023 8:45 PM CDT 07/18/2023 8:59 PM CDT Cristo Lozano MD LAB_1 Performing Organization Address [facility] de Phone Number [facility] [address] [place] [address] * (ABNORMAL) Beta Hydroxybutyrate (07/18/2023 8:44 PM CDT) Beta Hydroxybutyrate 1.78(H) 0.02 - 0.27 mmol/L 07/18/2023 10:47 PM CDT [facility] Blood Venipuncture / Unknown 07/18/2023 8:44 PM CDT 07/18/2023 8:54 PM CDT Sánchez Ramírez DO LAB_1 Performing Organization Address [facility] Co de Phone Number [address] * Acetaminophen Level (07/18/2023 8:44 PM CDT) Acetaminophen <3 <=3 mcg/mL 07/18/2023 9:[address] [facility] Comment:This may be a toxic clinical scenario, depending on ingestion time and comorbidities. Contact the Toxicology Service with questions. Blood Venipuncture / Unknown 07/18/2023 8:44 PM CDT 07/18/2023 8:54 PM CDT Sánchez Ramírez DO LAB_1 Performing Organization Address [facility] de Phone Number [address] * Alcohol (ethyl) Level (07/18/2023 8:44 PM CDT) Only the most recent of2 resultswithin the time period is included. Ethyl Alcohol <0.01 <=0.01 g/dL 07/18/2023 9:[address] [facility] Blood Venipuncture / Unknown 07/18/2023 8:44 PM CDT 07/18/2023 8:54 PM CDT [facility] 07/18/2023 9:22 PM CDT For medical purposes only; not valid for forensic, legal, or employment use. Sánchez Ramírez DO LAB_1 Performing Organization Address [facility] Co de Phone Number [address] * Salicylate Level (07/18/2023 8:44 PM CDT) Salicylate <5 <=5 mg/dL 07/18/2023 9:[address] [facility] Comment:This may be a toxic clinical scenario, depending on age, kidney function, and ingestion time. Contact the Toxicology service with questions. Blood Venipuncture / Unknown 07/18/2023 8:44 PM CDT 07/18/2023 8:54 PM CDT Sánchez Ramírez DO LAB_[address] * Phosphorus (07/18/2023 8:44 PM CDT) Phosphorus 3.9 2.3 - 4.7 mg/dL 07/18/2023 10:[address] [facility] Blood Venipuncture / Unknown 07/18/2023 8:44 PM CDT 07/18/2023 8:54 PM CDT Sánchez Ramírez DO LAB_1 Performing Organization Address [facility] Co de Phone Number [address] * ECG 12-Lead STAT (07/18/2023 8:29 PM CDT) Only the most recent of3 resultswithin the time period is included. Ventricular Rate 120 BPM [facility] Atrial Rate 120 BPM [facility] P-R Interval 144 ms [facility] QRS Duration 84 ms [facility] QT 328 ms [facility] QTc 463 ms [facility] P [place] 57 degrees [facility] R [place] 34 degrees [facility] T [place] 171 degrees [facility] 07/18/2023 8:29 PM CDT Narrative [facility] - 07/19/2023 11:53 AM CDT Sinus tachycardia Possible Left atrial enlargement Left ventricular hypertrophy T wave abnormality, consider lateral ischemia Abnormal ECG When compared with ECG of 07-MAY-2023 06:30, no significant change was found Confirmed by Mable Joaquin ([id number]) on 07/19/2023 11:53:09 AM Procedure Note Mable Joaquin MD - 07/19/2023 Sinus tachycardia Possible Left atrial enlargement Left ventricular hypertrophy T wave abnormality, consider lateral ischemia Abnormal ECG When compared with ECG of 07-MAY-2023 06:30, no significant change wasfound Confirmed by Mable Joaquin ([id number]) on 07/19/2023 11:53:09 AM Elo Benito MD EKG Performing Organization Address City/[facility]/ZIP Co de Phone Number [facility] [address] [place] [address] * (ABNORMAL) Liver Panel(Hepatic Function Panel) (05/08/2023 8:37 AM [employer]) Only the most recent of2 resultswithin the time period is included. Pathologist [facility] Alkaline Phosphatase 64 40 - 150 U/L 05/08/2023 9:55 AM [facility] Bilirubin, Total 0.8 0.2 - 1.2 mg/dL 05/08/2023 9:55 AM [facility] Bilirubin, Direct 0.4 0.0 - 0.5 mg/dL 05/08/2023 9:55 AM [facility] AST (SGOT) 37 10 - 40 U/L 05/08/2023 9:55 AM [facility] ALT (SGPT) 28 <=55 U/L 05/08/2023 9:55 AM [facility] Protein, Total 6.5 6.4 - 8.3 g/dL 05/08/2023 9:55 AM [facility] Albumin 3.3(L) 3.5 - 5.0 g/dL 05/08/2023 9:55 AM [facility] Blood Venipuncture / Unknown 05/08/2023 8:37 AM [employer] 05/08/2023 9:21 AM [employer] Zaki Velásquez MD LAB_1 Performing Organization Address City/[facility]/ZIP Co de Phone Number [address] * (ABNORMAL) Troponin I (05/07/2023 9:09 PM [employer]) Only the most recent of6 resultswithin the time period is included. Pathologist [facility] Troponin I 0.76(H) 0.00 - 0.03 ng/mL 05/07/2023 9:51 PM [employer] [facility] Blood Venipuncture / Unknown 05/07/2023 9:09 PM [employer] 05/07/2023 9:22 PM [employer] Zaki Velásquez MD LAB_[address] [address], [facility] * US Renal W Bladder (05/07/2023 8:19 PM [employer]) Anatomical Region Laterality Modality Abdomen, Pelvis Ultrasound 05/07/2023 8:19 PM [employer] Narrative 05/07/2023 8:22 PM [employer] EXAM: US RENAL W BLADDER LOCATION: [facility] DATE: 05/07/2023 INDICATION: USAMA COMPARISON: None. TECHNIQUE: Routine Bilateral Renal and Bladder Ultrasound. FINDINGS: RIGHT KIDNEY: 13.4 cm. Normal without hydronephrosis or masses. LEFT KIDNEY: 15.1 cm. No hydronephrosis. Benign-appearing 2.2 cm cyst at the midpole. No follow-up needed. BLADDER: Normal. IMPRESSION: 1. ??No hydronephrosis. Procedure Note Ángel Zamora MD - 05/07/2023 EXAM: US RENAL W BLADDER LOCATION: [facility] DATE: 05/07/2023 INDICATION: USAMA COMPARISON: None. TECHNIQUE: Routine Bilateral Renal and Bladder Ultrasound. FINDINGS: RIGHT KIDNEY: 13.4 cm. Normal without hydronephrosis or masses. LEFT KIDNEY: 15.1 cm. No hydronephrosis. Benign-appearing 2.2 cm cyst atthe midpole. No follow-up needed. BLADDER: Normal. IMPRESSION: 1. No hydronephrosis. Zaki Velásquez MD [facility] * Rapid Fentanyl, Urine (with confirmation) (05/07/2023 2:52 PM [employer]) Rapid Fentanyl Screen Not Detected Not Detected 05/07/2023 3:[address] [employer] [employer] [facility] Creatinine, Urine, Random 206 >20 mg/dL 05/07/2023 3:[address] [employer] [employer] [facility] Urine Non-blood Collection / Unknown 05/07/2023 2:52 PM [employer] 05/07/2023 3:02 PM [employer] Narrative [facility] - 05/07/2023 3:37 PM [employer] The absence of expected drug(s) and/or drug [...] Althea Grigsby PA-C LAB_1 Performing Organization Address City/State/[facility] Co de Phone Number [address] [address] * (ABNORMAL) Urine Drug Comprehensive Panel (with Confirmation) (05/07/2023 2:52 PM [employer]) [facility] [id number] am, urine Confirmed Positive(A) Not Detected 05/11/2023 12:19 PM [facility] Alprazolam, urine Confirmed Positive(A) Not Detected 05/11/2023 12:19 PM [facility] Amitryptyline, urine Not Detected Not Detected 05/11/2023 12:19 PM [facility] Amphetamine, urine Confirmed Positive(A) Not Detected 05/11/2023 12:19 PM [facility] Benzoylecgonine, urine Not Detected Not Detected 05/11/2023 12:19 PM [facility] Buprenorphine, urine Not Detected Not Detected 05/11/2023 12:19 PM [facility] Bupropion, urine Not Detected Not Detected 07/2023 12:19 PM [facility] Butalbital, urine Not Detected Not Detected 07/2023 12:19 PM [facility] Carisoprodol, urine Not Detected Not Detected 05/11/2023 12:19 PM [facility] Citalopram, urine Confirmed Positive(A) Not Detected 05/11/2023 12:19 PM [facility] Clomipromine, urine Not Detected Not Detected 05/11/2023 12:19 PM [facility] Clonazepam Metab 7-Aminoclonazepam , urine Not Detected Not Detected 05/11/2023 12:19 PM [facility] Clonazepam, urine Not Detected Not Detected 07/2023 12:19 PM [facility] Cocaine, urine Not Detected Not Detected 2023 12:19 PM [facility] Codeine, urine Not Detected Not Detected 2023 12:19 PM [facility] Cyclobenzaprine, urine Confirmed Positive(A) Not Detected 05/11/2023 12:19 PM [facility] Desipramine, urine Not Detected Not Detected 05/11/2023 12:19 PM [facility] Diazepam, urine Not Detected Not Detected 05/10 12:19 PM [facility] Doxepin, urine Not Detected Not Detected 2023 12:19 PM [facility] Ecstasy MDMA, urine Not Detected Not Detected 05/11/2023 12:19 PM [facility] Ecstasy Metab MDA, urine Not Detected Not Detected 05/11/2023 12:19 PM [facility] Fentanyl, urine Not Detected Not Detected 05/10 12:19 PM [facility] Fluoxetine, urine Not Detected Not Detected 07/2023 12:19 PM [facility] Gabapentin, urine Confirmed Positive(A) Not Detected 05/11/2023 12:19 PM [facility] Heroin Metab 6-acetylmorphine, urine Not Detected Not Detected 05/11/2023 12:19 PM [facility] Hydrocodone, urine Not Detected Not Detected 05/11/2023 12:19 PM [facility] Hydromorphone, urine Not Detected Not Detected 05/11/2023 12:19 PM [facility] Imipramine, urine Not Detected Not Detected 07/2023 12:19 PM [facility] Ketamine, urine Not Detected Not Detected 05/10 12:19 PM [facility] Lorazepam, urine Not Detected Not Detected 07/2023 12:19 PM [facility] Marijuana Metabolite, urine Confirmed Positive(A) Not Detected 05/11/2023 12:19 PM [facility] Meperidine, urine Not Detected Not Detected 07/2023 12:19 PM [facility] Meprobamate, urine Not Detected Not Detected 05/11/2023 12:19 PM [facility] Methadone Metab EDDP, urine Not Detected Not Detected 05/11/2023 12:19 PM [facility] Methadone, urine Not Detected Not Detected 07/2023 12:19 PM [facility] Methamphetamine, urine Confirmed Positive(A) Not Detected 05/11/2023 12:19 PM [facility] Methylphenidate, urine Not Detected Not Detected 05/11/2023 12:19 PM [facility] Mirtazapine, urine Not Detected Not Detected 05/11/2023 12:19 PM [facility] Morphine, urine Not Detected Not Detected 05/10 12:19 PM [facility] Norbuprenorphine, urine Not Detected Not Detected 05/11/2023 12:19 PM [facility] Nordiazepam, urine Not Detected Not Detected 05/11/2023 12:19 PM [facility] Desmethyldoxapine , urine Not Detected Not Detected 05/11/2023 12:19 PM [facility] Norfentanyl, urine Not Detected Not Detected 05/11/2023 12:19 PM [facility] Nortriptyline, urine Not Detected Not Detected 05/11/2023 12:19 PM [facility] O-desmethylvenlaf axine, urine Not Detected Not Detected 05/11/2023 12:19 PM [facility] Oxazepam, urine Not Detected Not Detected 05/10 12:19 PM [facility] Oxycodone, urine Confirmed Positive(A) Not Detected 05/11/2023 12:19 PM [facility] Oxymorphone, urine Not Detected Not Detected 05/11/2023 12:19 PM [facility] Paroxatine, urine Not Detected Not Detected 07/2023 12:19 PM [facility] Phencyclidine, urine Not Detected Not Detected 05/11/2023 12:19 PM [facility] Phenobarbital, urine Not Detected Not Detected 05/11/2023 12:19 PM [facility] Pregabalin, urine Not Detected Not Detected 07/2023 12:19 PM [facility] Quetiapine, urine Confirmed Positive(A) Not Detected 05/11/2023 12:19 PM [facility] Sertraline, urine Not Detected Not Detected 07/2023 12:19 PM [facility] Tapentadol, urine Not Detected Not Detected 07/2023 12:19 PM [facility] Temazepam, urine Not Detected Not Detected 07/2023 12:19 PM [facility] Tramadol, urine Not Detected Not Detected 05/10 12:19 PM [facility] Venlafaxine, urine Not Detected Not Detected 05/11/2023 12:19 PM [facility] Zolpidem, urine Not Detected Not Detected 05/10 12:19 PM [facility] Creatinine, Urine, Random 206 >20 mg/dL 05/11/2023 12:19 PM [facility] Medication Check Inconsistent with Med List(A) Consistent with Med List 05/11/2023 12:19 PM [facility] Patient Medication History Current Facility-Admin istered [...] outpatient medications on file. 05/11/2023 12:19 PM [facility] Medication Interpretation Not prescribed and detected: Alprazolam not prescribed and detected with metabolite [id number] zolam Cannabis detected as THC metabolite Citalopram not prescribed and detected Cyclobenzaprin e not prescribed and detected Methamphetamin e detected with metabolite amphetamine Oxycodone not prescribed and detected Prescribed and not detected: Diazepam prescribed and not detected Prescribed and detected: Gabapentin prescribed and detected Quetiapine prescribed and detected 05/11/2023 12:19 PM [facility] Urine Non-blood Collection / Unknown 05/07/2023 2:52 PM [employer] 05/07/2023 3:02 PM [employer] [facility] - 05/11/2023 12:19 PM [employer] The absence of expected drug(s) and/or drug [...] developed and its performance characteristics validated by [facility]. It has not been cleared nor approved by the FDA. Zaki Velásquez MD LAB_1 Performing Organization Address City/State/[facility] Co de Phone Number [facility] [address] [place] [address], [facility] * (ABNORMAL) UA Conditional UC: Clean Catch (05/07/2023 2:52 PM [employer]) Urine Culture Comment Urinalysis results do not meet criteria for urine culture reflex. 05/07/2023 3:16 PM [facility] Urine Color Yellow 05/07/2023 3:16 PM [facility] Urine Clarity Clear Clear 05/07/2023 3:16 PM [facility] Specific [place], Urine 1.042(H) <1.030 05/07/2023 3:16 PM [facility] Comment:The Specific gravity may be falsely elevated due to the presence of x- ray contrast media, high molecular weight drugs, protein OVER (>600) or Glucose OVER (>1000). If results needed contact lab to have specific gravity performed by alternate method. PH Urine 6.5 5.0 - 8.0 05/07/2023 3:16 PM [facility] Protein, Urine Qual (mg/dL) 30(A) Negative, 10 , 20 05/07/2023 3:16 PM [facility] Glucose Urine Qual (mg/dL) Normal (Negative) Normal (Negative), 30 , 50 05/07/2023 3:16 PM [facility] Ketones, Urine (mg/dL) 10(A) Negative, Trace 05/07/2023 3:16 PM [facility] Urobilinogen, Urine (EU/dL) Normal (Negative) Normal (Negative) 05/07/2023 3:16 PM [facility] Bilirubin Urine (mg/dL) Negative Negative 05/07/2023 3:16 PM [facility] Blood, Urine (mg/dL) Negative Negative, 0.03 (Trace) 05/07/2023 3:16 PM [facility] Nitrite Urine Negative Negative 05/07/2023 3:16 PM [facility] Leukocyte Esterase, Urine (Dean/uL) Negative Negative, 25 (Trace) 05/07/2023 3:16 PM [facility] Red Blood Cells 7(H) 0 - 3 /HPF 05/07/2023 3:16 PM [facility] White Blood Cells 5 0 - 5 /HPF 05/07/2023 3:16 PM [facility] Mucus Present(A) None Seen /HPF 05/07/2023 3:16 PM [facility] Hyaline Casts 11(H) <=2 /LPF 05/07/2023 3:16 PM [facility] Urine Source Clean Catch 05/07/2023 3:16 PM [facility] Urine URINE SPECIMEN COLLECTION, CLEAN CATCH / Unknown Non-blood Collection / Unknown 05/07/2023 2:52 PM [employer] 05/07/2023 3:04 PM [facility] - 05/07/2023 3:16 PM [facility] The qualitative interpretive guidance provided (e.g., small, moderate, large) is intended to aid in quantitative result interpretation. It is not itself an FDA-cleared test result. Shanta Kaur MD LAB_1 Performing Organization Address [facility] Co de Phone Number [address] * Sodium, Urine Random (05/07/2023 2:52 PM [employer]) Sodium, Urine Random 43 mmol/L 05/07/2023 4:[address] [employer] [facility] Urine Non-blood Collection / Unknown 05/07/2023 2:52 PM [employer] 05/07/2023 3:02 PM [employer] Zaki Velásquez MD LAB_1 Performing Organization Address [facility] Phone [address] * Creatinine, Urine Random (05/07/2023 2:52 PM [employer]) Creatinine, Urine, Random 206 >20 mg/dL 05/07/2023 3:[address] [employer] [employer] [facility] Urine Non-blood Collection / Unknown 05/07/2023 2:52 PM DIRECTOR INBOUND SALES 05/07/2023 3:02 PM DIRECTOR INBOUND SALES Zaki Velásquez MD LAB_1 Performing Organization Address [facility] Phone [address] * (ABNORMAL) XA Unfractionated Heparin (05/07/2023 2:11 PM DIRECTOR [employer] SALES) Heparin 10a Level (Unfractionate d Hep) 0.11(L) 0.30 - 0.70 IU/mL 05/07/2023 2:[address] [facility] Blood Venipuncture / Unknown 05/07/2023 2:11 PM DIRECTOR [employer] SALES 05/07/2023 2:14 PM DIRECTOR [employer] SALES Zaki Velásquez MD LAB_1 Performing Organization Address [facility] Co de Phone [address] * Phosphatidylethanol (PEth), Quantitative (05/07/2023 2:11 PM DIRECTOR INBOUND SALES) [facility] Signature PEth 16:0/18:1 (POPEth) 142 ng/mL 05/11/2023 2:45 PM [facility] Comment: PEth 16:0/18:1 (POPEth) Less than 10 ng/mL............Not detected Less than 20 ng/mL............Abstinence or light alcohol consumption 20 - 200 ng/mL................Moderate alcohol consumption Greater than 200 ng/mL........Heavy alcohol consumption or chronic alcohol use (Reference: Layne Mann and Toni Muñoz 2018 J. Forensic Sci) PEth 16:0/18:2 (PLPEth) 100 ng/mL 05/11/2023 2:45 PM [facility] Comment:Reference ranges are not well established. EER Peth See Note 05/11/2023 2:45 PM [facility] Comment: Authorized individuals can access the [employer] Enhanced Report using the following link: [email or web address] PEth Interpretation See Comment 05/11/2023 2:45 PM [facility] Comment: Phosphatidylethanol (PEth) is a group of [...] developed and its performance characteristics determined by [facility]. It has not been cleared or approved by the U.S. Food and Drug Administration. This test was performed in a CLIA-certified laboratory and is intended for clinical purposes. Performed By: [facility] [address] [place] [address] Supervisor [employer]: Ben Ellison MD, PhD CLIA Number: [id number] Blood Venipuncture / Unknown 05/07/2023 2:11 PM DIRECTOR [employer]OUND SALES 05/07/2023 2:14 PM DIRECTOR [employer]OUND SALES Althea Grigsby PA-C LAB_1 Performing Organization Address [facility]/ZIP Co de Phone Number [facility] [address] [place] [address] [place] [address] * EJECTION FRACTION (05/07/2023 1:15 PM DIRECTOR INBOUND SALES) EF 60 % [facility] EF test type ECHO PROS[facility]V 05/07/2023 1:15 PM DIRECTOR INBOUND SALES Trish Patel MD [facility]/RH Performing Organization Address City/[facility]/ZIP Co de Phone Number [facility] [address] [place] [address] * CARDIAC ROUTINE ECHOCARDIOGRAM (05/07/2023 1:15 PM DIRECTOR INBOUND SALES) 05/07/2023 1:15 PM DIRECTOR [employer] SALES Narrative [facility] - 05/07/2023 2:56 PM DIRECTOR [employer] SALES Summary ??1. Technically difficult exam, contrast was used. ??2. Sinus rhythm during study. ??3. grossly normal LV size and systolic function, EF 60%. No obvious focal wall motion abnormalities. ??4. Grossly frgm-yn-wumjsvgj LVH. ??5. Grossly normal RV size and [...] No obviousfocal wall motion abnormalities. 4. Grossly emqk-nk-pqjqvzis LVH. 5. Grossly normal RV size and systolic function. 6. Mild aortic valve regurgitation. 7. Mildly to moderately calcified annulus. Mean gradient 2.71 mm Hg at aheart rate of 93 beats per minute. 8. Compared to outside study from March 14, 2023, the current studyreveals last aortic regurgitation. Report Signatures Finalized by David Ennis on 05/07/2023 02:56 PM Tirsh Patel MD [facility]/ RH Performing Organization Address City/[facility] Co de Phone Number [facility] [address] [place] [address] * (ABNORMAL) Lipid Panel & Direct LDL (if Needed) (05/07/2023 12:06 PM DIRECTOR [employer] SALES) Cholesterol 91 0 - 199 mg/dL 05/07/2023 3:44 PM [facility] Triglyceride 77 <=149 mg/dL 05/07/2023 3:44 PM [facility] HDL Cholesterol 31(L) >=40 mg/dL 3:44 PM [facility] LDL, Calculated 45 <130 mg/dL 3:44 PM [facility] Non HDL Chol, Calculated 60 <=159 mg/dL 05/07/2023 3:44 PM [facility] Cholesterol/HDL Ratio 2.9 <=5.0 05/07/2023 3:44 PM [facility] Blood Venipuncture / Unknown 05/07/2023 12:06 PM DIRECTOR [employer]ES 05/07/2023 12:13 PM DIRECTOR INBOUND SALES Zaki Velásquez MD LAB_1 Performing Organization Address City/[facility] Co de Phone Number [address] * RSV RNA, Molecular Detection (05/07/2023 9:35 AM DIRECTOR INBOUND SALES) [facility] RSV by PCR Not Detected Not Detected 05/07/2023 10:34 AM [facility] Swab (Source Required) (Nasopharyngeal swab) Non-blood Collection / Unknown 05/07/2023 9:35 AM DIRECTOR INBOUND SALES 05/07/2023 9:42 AM DIRECTOR INBOUND SALES [facility] 05/07/2023 10:34 AM DIRECTOR INBOUND SALES Method: Qualitative real-time PCR assay to detect RSV Viral RNA. Trish Patel MD LAB_1 Performing Organization Address [facility] Co de Phone Number [address] * Influenza A and B by PCR (05/07/2023 9:35 AM DIRECTOR INBOUND SALES) [facility] INFLUENZA A MOLECULAR Not Detected Not Detected 05/07/2023 10:34 AM [facility] INFLUENZA B MOLECULAR Not Detected Not Detected 05/07/2023 10:34 AM [facility] Swab (Source Required) (Nasopharyngeal swab) Non-blood Collection / Unknown 05/07/2023 9:35 AM DIRECTOR [employer] SALES 05/07/2023 9:42 AM DIRECTOR INBOUND SALES [facility] 05/07/2023 10:34 AM DIRECTOR INBOUND SALES Methodology: ??Qualitative real-time PCR assay to detect the Influenza type A and type B viral RNA Trish Patel MD LAB_1 Performing Organization Address [facility] Co de Phone Number [address] * 2019 Novel Coronavirus (COVID-19) (05/07/2023 9:35 AM DIRECTOR INBOUND SALES) [facility] COVID-19 Interpretation Not Detected Not Detected 05/07/2023 10:[address] [facility] Source Nasopharyngeal swab 05/07/2023 10:34 AM [facility] Swab (Source Required) (Nasopharyngeal swab) Non-blood Collection / Unknown 05/07/2023 9:35 AM DIRECTOR [employer] SALES 05/07/2023 9:42 AM DIRECTOR INBOUND SALES Narrative [facility] - 05/07/2023 10:34 AM DIRECTOR IN[employer]OUND SALES Test performed by real-time PCR. This test has been authorized by the FDA under an Emergency Use Authorization (EUA) for use by authorized laboratories. Trish Patel MD LAB_1 Performing Organization Address [facility]/ZIP Co de Phone Number [address] * (ABNORMAL) Creatinine / GFR (05/07/2023 6:22 AM DIRECTOR [employer] SALES) Creatinine 2.46(H) 0.73 - 1.18 mg/dL 05/07/2023 7:[address] [facility] GFR, Estimated 30(L) >60 mL/min/1.7 3m2 05/07/2023 7:[address] [facility] Blood Venipuncture / Unknown 05/07/2023 6:22 AM DIRECTOR [employer] 05/07/2023 6:26 AM DIRECTOR [employer] SALES Shanta Kaur MD LAB_1 Performing Organization Address [facility] Co de Phone Number [address] * CT Angio Chest W IV Cont PE Study (05/07/2023 5:47 AM DIRECTOR [employer] SAL[employer]) Anatomical Region Laterality Modality Chest, Lung, Vascular Computed T omography 05/07/2023 5:47 AM DIRECTOR [employer] SALES Narrative 05/07/2023 5:58 AM DIRECTOR INBOUND SALES EXAM: CT ANGIO CHEST W IV CONT PE STUDY LOCATION: [facility] DATE: 05/07/2023 INDICATION: Hypoxia, syncope, ischemic [...] CHEST W IV CONT PE STUDY LOCATION: [facility] DATE: 05/07/2023 INDICATION: Hypoxia, syncope, ischemic [...] 3 mm bilateral pulmonary nodules. Per Fleischner [id number] guideline, a one-year follow-up chest CT could be considered ifpatient is at high risk for lung cancer. Without lung cancer risk factor,no follow-up is necessary. Shanta Kaur MD RAD CT * POC US Basic Cardiac (05/07/2023 5:13 AM DIRECTOR [employer] SALES) Anatomical Region Laterality Modality Chest, Cardiac, US Cardiac Other Narrative 05/07/2023 11:08 AM DIRECTOR [employer]OUND SALES Aaron Patterson MD ? 05/07/2023 ??2:31 PM [facility] Point of Care Ultrasound Interpretation POC US Basic Cardiac Date/Time: 05/07/2023 11:08 AM Performed by: Aaron Patterson MD Authorized by: Shanta Kaur MD ?? Point of Care Ultrasound: Basic Cardiac Indications: Shortness of Breath and Syncope Window: Adequate for full imaging and interpretation Findings/ Impression (Within the context of limited ipcqg-rd-spoi ultrasound): Mildly Depressed LV Function, Right Ventricle Enlarged with positive D sign on parasternal short axis view concerning for elevated right-sided pressures, No Pericardial Effusion, and IVC Dilated Shanta Kaur MD RAD POC US * B-Type Natriuretic Peptide (05/07/2023 4:20 AM DIRECTOR [employer] SALES) B Type Natr. Peptide 15 <=99 pg/mL 05/07/2023 7:[address] [facility] Blood Venipuncture / Unknown 05/07/2023 4:20 AM DIRECTOR [employer] SALES 05/07/2023 4:34 AM DIRECTOR [employer] SALES Shanta Kaur MD LAB_1 Performing Organization Address [facility]/State/ZIP Co de Phone Number [address] * (ABNORMAL) D Dimer, Quantitative (05/07/2023 4:20 AM DIRECTOR [employer] SAL[employer]) D Dimer, Quant 0.74(H) <=0.50 ug/mL FEU 05/07/2023 5:[address] [facility] Blood Venipuncture / Unknown 05/07/2023 4:20 AM DIRECTOR [employer] SALES 05/07/2023 4:35 AM DIRECTOR INBOUND SALES Narrative [facility] - 05/07/2023 5:53 AM DIRECTOR [employer]OUND SALES A D-dimer level <=0.50 ug/mL FEU in [...] increasing clot age. Shanta Kaur MD LAB_[address] * (ABNORMAL) APTT (Activated Partial Thromboplastin Time) (05/07/2023 4:20 AM DIRECTOR [employer] SALES) APTT 40.4(H) 22.5 - 36.5 Seconds 05/07/2023 7:[address] [facility] Blood Venipuncture / Unknown 05/07/2023 4:20 AM DIRECTOR [employer]OUND SALES 05/07/2023 4:35 AM DIRECTOR [employer] SALES Shanta Kaur MD LAB_1 Performing Organization Address [facility] Co de Phone Number [address] * INR/PROTIME (05/07/2023 4:20 AM DIRECTOR [employer] SALES) Protime 14.0 11.8 - 14.6 Seconds 05/07/2023 7:[address] [facility] INR 1.1 0.9 - 1.1 05/07/2023 7:55 AM [facility] Blood Venipuncture / Unknown 05/07/2023 4:20 AM DIRECTOR [employer] SALES 05/07/2023 4:35 AM DIRECTOR INBOUND SALES Narrative [facility] - 05/07/2023 7:55 AM DIRECTOR [employer]OUND SALES Therapeutic range determined by protocol established by anticoagulation provider. Shanta Kaur MD LAB_1 Performing Organization Address [facility] Co de Phone Number [address] * HIV 1/2 Ag/Ab 4th Generation (05/27/2017 2:42 PM CDT) Pathologist [facility] HIV 1/2 AG/AB 4thGEN Negative (Non Reactive) [facility] Comment:HIV-1 p24 Ag and HIV -1/HIV-2 Ab not detected. 05/27/2017 2:42 PM CDT 05/27/2017 2:44 PM CDT Narrative [facility] - 05/27/2017 7:17 PM CDT Performed at [facility], [address] [place] [address] ??[id number] Briana Vazquez PA-C LAB_1 Performing Organization Address [facility] Co de Phone Number [facility] [phone] * Hepatitis C Antibody, with Reflex (05/27/2017 2:42 PM CDT) Anti-HCV Negative (Non Reactive) [facility] Comment: Antibodies to HCV not detected. Does not exclude the possibility of exposure to HCV. 05/27/2017 2:42 PM CDT 05/27/2017 2:44 PM CDT Narrative [facility] - 05/27/2017 6:44 PM CDT Performed at [facility], [address] [place] [address] ??[phone] Briana Vazquez PA-C LAB_1 [facility] [phone] from Last 3 Months or Most Recently Relevant to Health Maintenance Advance Directives * Full Code (Latest Code Status on File) Date Activated Date Inactivated Comments 07/20/2023 4:24 PM * Full Code Date Activated Date Inactivated Comments 07/18/2023 11:50 PM 07/20/2023 3:13 PM * Full Code Date Activated Date Inactivated Comments 05/08/2023 6:42 PM 05/10/2023 2:26 PM * Full Code Date Activated Date Inactivated Comments 05/07/2023 11:14 AM 05/08/2023 6:31 PM * Full Code Date Activated Date Inactivated Comments 09/11/2015 5:39 PM 09/18/2015 2:12 PM Care Teams Wool Shearer Relationship Specialty Start Date End Date Briana Vazquez PA-C [address] [place] [address] PCP - General Physician [facility]idential [facility] Staff 11/29/19
--- OUTSIDE RECORDS SUMMARY | 2023-07-22 15:05 | XMS_ITS | Clinical Summary ---
Author Name Unknown Organization [facility] Address [place], [place] [address] Care Team Providers Care Scribing Machine Operator Name Role Phone Ánegl Massey MD Primary Care Provider + Allergies [...] this topic Medical Devices Implanted Type Area Insurance Sales Specialist Device Identifier Shelf Expiration Date Model / Serial / Lot [id number] Matrix 1cc Shauna Plus Paste Dbm Implanted:Qty: 1 on 09/07/2019 by Dane Wharton MD at [facility] Explanted:at [facility] (Quantity not on file) Spine [employer] Spine/Ortho 11/23/2020 [id number] / [id number] / Spacer Cerv [id number] Vertestack Peek - [id number] Implanted:Qty: 1 on 09/07/2019 by Dane Wharton MD at [facility] Spine [employer] Spine/Ortho 04/06/2027 [id number]# / / [id number] Spacer Cerv [id number] Vertestack Peek - [id number] Implanted:Qty: 1 on 09/07/2019 by Dane Wharton MD at [facility] Spine [employer] Spine/Ortho 10/28/2026 [id number]# / / [id number] Screw Cerv Ant 4x17mm [employer]antistransl[employer] Fa Slf Drill - [id number] Implanted:Qty: 2 on 09/07/2019 by Dane Wharton MD at [facility] Spine [employer] Spine/Ortho [id number]# / / Screw Cerv Ant 4x17mm [employer]antistranslational Va Slf Drill - [id number] Implanted:Qty: 4 on 09/07/2019 by Dane Wharton MD at [facility] Spine [employer] Spine/Ortho [id number]# / / Plate Cerv 2lvl 45mm Aguila Vision Elite Ant - [id number] Implanted:Qty: 1 on 09/07/2019 by Dane Wharton MD at [facility] Spine [employer] Spine/Ortho [id number]# / / Procedures Procedure Name Priority Date/Time Associated Diagnosis Comments CHOLESTEROL,TOTAL Routine 06/04/2003 8:0 0 AM FIELD AUTOMOBILE ADJUSTER from Last 3 Months or Most Recently Relevant to Health Maintenance Results * CHOLESTEROL,TOTAL (06/04/2003 8:00 AM FIELD AUTOMOBILE ADJUSTER) CHOLESTEROLTOT AL 160 110 - 199 mg/dL 06/04/2003 8:00 AM FIELD AUTOMOBILE ADJUSTER Narrative 08/19/2003 12:05 AM CDT Ordered by [...] 1:25 PM 10/07/2015 2:42 PM Care Teams Scribing Machine Operator Relationship Specialty Start Date End Date Ángel Massey MD [address] [place] [address] PCP - General Family Practice 06/26/19
--- OUTSIDE RECORDS SUMMARY | 2023-07-22 15:05 | XMS_ITS | Encounter Summary ---
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 Animated affect congruent with mood. Compliant with medications and assessments. --- End of Report --- * Plan of Care - Cece Trujillo RN - 07/21/2023 9:41 AM CDT Problem: Mood Impairment (Psychotic Signs/Symptoms) Goal: Improved Mood Symptoms (Psychotic Signs/Symptoms) Outcome: Progressing [facility] Plan of Care Note Assessment: plan of care Plan: Provide interaction with pt to build trust. Encourage pt to verbalize concerns. Continue to assess and document. Discussed plan of care with patient, provider, and social work program coordinator. Subjective: Pt stated I just don't know if I'll be able to stop drinking. I've been drinking sinceage 12. Objective: Pt is restless, anxious, low energy, low mood. Pt reported he believes that a gang member is after him and his son. Pt stated he can't tell what is real or not when he is high on meth or drinking heavily. Pt stated he wants to go to cd treatment but doesn't know if he will be able to quit drinking. Pt reports he feels partly responsible for his older son's suicide, stated I've been a shitty father. Pt worries about his younger son who he says is into drugs heavy. Pt encouraged toutilize healthy coping skills, attend groups. CIWA 0 and 0. --- End of Report --- * Plan of Care - Kyleigh Barnard OTR/L - 07/21/2023 8:53 AM CDT [facility] Occupational Therapy Plan of Care Note Group Name Attendance Minutes Topic Movement/Exercise Absent/Refusal Activity Room/Group Life Skills/IM&R Absent/Refusal Clinic Absent/Refusal Daily Group [...] reported benefits: Initial Assessment Patient Reported Strengths: Patient's Curriculum Track Patient's Recovery Goals Patient's Goals OT Treatment Goals 1. Assess and provide [...] and Recovery (IM&R), Unit, Grooming and/or Movement/Exercise. * Initial Assessments - Mora Leo MSW, HAND SINGER - 07/21/2023 8:50 AM CDT [facility] Social Work Initial Assessment Admission Date/Time: 07/20/2023 3:13 PM Age: 57 y.o. Attending Practitioner: Kristin Rutledge PA-C [facility] Admitting Diagnosis: No diagnosis found. Reason for admit: Nicanor Alvarado is a 57 y.o. male who has been admitted to [facility] inpatient Mental Health. The patient is being admitted on a 72 hour hold status. The patient carries a diagnosis of bipolar disorder vs SCAD and polysubstance use disorder. This pt was admitted to Medicine with acute renal failure and rhabdomyolysis. The psychiatric consultation service was asked to see this patient for concern for ingestion, suicidal thinking, and psychosis. He was stabilized medically and transferred to [facility] for psychiatric stabilization. Legal Status: On Admission: Voluntary Current: 72 hour hold Committed: No Current Order Received in Chart: n/a Legal Issues: DUI in [place] Living Situation: Parents Alternative Decision Maker: No Collateral Contacts Collateral Contacts: Other Contact 1, Family/Friend Family/Friend Contact Name: Carlos Alvarado - Parents Family/Friend Contact or [phone] Other Contact Name : Salvatore Alvarado - Son Other Contact Financial Insurance: [employer] Secondary Insurance: N/A Employment/Income: Psychiatric/Substance Use Disorder/Medical History Patient endorses a past psychiatric diagnosis of Bipolar I Disorder, Schizophrenia and Major Depressive Disorder. Patient's chart review notes a history of inpatient psychiatric admissions in the past. Most recent admissions were 05/07/23-05/10/23 on [facility], 09/10/2015 to 09/18/2015 ([place] [id number]) and 09/23/2015- 10/07/2015 ([facility]). Patient endorses regular use of Methamphetamine and Xanax in which hepurchases online. Please refer to H&P for medical summary. Data Hotel Sales Manager met with pt on the unit. Hotel Sales Manager introduced self and explained SW role. Pt engaged and talkative. Pt shared wanting various medications for pain and sleep. Pt specifically requesting Ativan. Ptinformed this is typically not prescribed but encouraged further conversations with provider. Pt open to more intensive therapy services and shared he has been to multiple treatment programs. Pt con firms living with mother and is on SSDI. Pt reports using meth 1x monthly. Pt denies that overdose was an intentional act to end his life and states he was trying to get high. No further concern noted. GAIN Substance Disorder Screening (SDScr) GAIN-SS (When [...] pain, relax, get through the day, etc.)?: worsens How does substance use affect your mental health problems or symptoms (i.e. Does using cannabis make your more paranoid, are your problems with anxiety/depression worse after you come down or sober up?)?: worsens Stages of Change Stage of Mental Health Treatment: Stage 1: Pre-Contemplation/Pre-Engagement (Engagement, Irregular or no contact with community provider, does not identify as having WI, No readiness to engage in treatment) WI Treatment Recommendations for Inpatient/Outpatient: Development of recovery plan (stage 1), Refer to community provider (stage 1) Stage of Substance Use Treatment: Stage 1: Pre-Contemplation/Pre-Engagement, Engagement (Irregular or no contact with community provider, does not identify as having CD, no readiness to engage in treatment) CD Treatment Recommendations for Inpatient/Outpatient: Provide diagnostic education (stage 1, 2), Refer to community provider (stage 1) Clinical Assessment Strengths: Family/social support, Has insurance, Resourceful, Resiliency Barriers/Vulnerabilities: uncooperative, impaired insight, substance use concerns, mental health issues, does not have case management, patient continues to require acute medical care Risk Assessment: low Current Aggression towards others: No Clinical Summary: See H & P Reasons for readmission in last 30 days Reasons for Readmission (30 day):: Relapse on drugs/alcohol Initial Social Work Plan Anticipated Disposition: d/c with [facility] resources * Plan of Care - Caridad Neves RN - 07/21/2023 5:24 AM CDT Assessment: Sleep Plan: Patient will sleep for more than 5 hours. Monitor signs and symptoms of alcohol withdrawal. Subjective: N/A Objective: Patient appeared to have slept for more than 5 hours with no incident. 15 minutes security checks ongoing, breathing nonlabored. * Initial Assessments - Kristin Rutledge PA-C - 07/20/2023 4:40 PM CDT [facility] DEPARTMENT OF PSYCHIATRY LARD MIXER INTAKE Nicanor Alvarado Admission Date and Time: 07/20/2023 4:24 PM Date/Time of this exam: 07/20/2023 4:40 PM Chief Complaint evaluation for acute psychiatric hospitalization Impression Nicanor Alvarado is a 57 y.o. male who has been admitted to inpatient Mental Health. The patient is medically clear for psychiatric admission and appropriate safety precautions have been initiated. Plan Acute Psychiatric/Medical Concerns to be addressed: - encephalopathy s/p ingestion: improved - bipolar disorder vs SCAD - r/o substance induced psychosis - alcohol use disorder, severe - methamphetamine use disorder, severe - BZD use disorder, severe - alcohol / BZD withdrawal - USAMA: resolved - mild rhabdomyolysis: improved - chronic back pain Medication Ordered/Consults/Labs/tests Ordered: Reviewed and reconciled prior to admission medications and ordered Seroquel 100mg po TID, [id number] po TID, Zyprexa 10mg po BID PRN, and CIWA protocol w PRN Valium and PRN Clonidine. See attending team's Admission Note for further history, diagnosis and treatment planning. Milieu Management: Admit to: [facility] Legal: 72 hour hold History of Present Illness Nicanor Alvarado is a 57 y.o. male who has been admitted to [facility] inpatient Mental Health. The patient is being admitted on a 72 hour hold status. The patient carries a diagnosis of bipolar disorder vs SCAD and polysubstance use disorder. This pt was admitted to Medicine with acute renal failure and rhabdomyolysis. The psychiatric consultation service was asked to see this patient forconcern for ingestion, suicidal thinking, and psychosis. He was stabilized medically and transferred to [facility] for psychiatric stabilization. Today, although paranoid, he denied SI when assessed by the psychiatry consult team. His disorganization was improved. See full admission interview completed byattending team for further admission history. Social History Current Living arrangement: w his mother Urine Drug Screen: +amphetamines / +BZD Past Medical History Past Medical History: Diagnosis Date Arthritis BP [...] 2000 L4-S1 Fusion Medical Review of Systems: refer to Hospital Medicine admission / documentation Medications Prior to Admission Medications Prior to Admission Medication Sig Dispense Refill acetaminophen (TYLENOL) 325 MG tablet Take 2 Tablets (650 mg) by mouth every 6 hours as needed. amLODIPine (NORVASC) 5 MG tablet Take 1 Tablet (5 mg) by mouth daily. 90 Tablet 3 aspirin 81 MG chewable tablet Chew and swallow 1 Tablet (81 mg) by mouth daily. atorvastatin (LIPITOR) 40 MG tablet Take 1 Tablet (40 mg) by mouth every evening. folic acid 1 MG tablet Take 1 Tablet (1 mg) by mouth daily. 30 Tablet 0 gabapentin (NEURONTIN) 300 MG capsule Take 2 Capsules (600 mg) by mouth three times a day. Indications: Neuropathic Pain lidocaine (XYLOCAINE) 5 % ointment Apply topically to affected area(s) three times daily as needed.35.44 g 0 metoprolol succinate (TOPROL XL) 25 MG 24 hour release tablet Take 1 Tablet (25 mg) by mouth daily. omeprazole (PRILOSEC) 20 MG capsule Take 1 hour before a meal. QUEtiapine (SEROQUEL) 100 MG tablet Take 1 Tablet (100 mg) by mouth three times a day. Indications:Manic-Depression Medications Ordered on current admission Current Facility-Administered Medications Medication Dose Route Frequency acetaminophen (TYLENOL) tablet 650 mg 650 mg Oral Q6H PRN senna (SENOKOT) tablet 2 Tablet 2 Tablet Oral BID PRN And polyethylene glycol (MIRALAX) oral powder 17 g 17 g Oral DAILY PRN And bisacodyl (DULCOLAX) rectal suppository 10 mg 10 mg Rectal DAILY PRN calcium carbonate (TUMS) chewable tablet 1,000 mg 1,000 mg Oral Q4H PRN cloNIDine (CATAPRES) tablet 0.1 mg 0.1 mg Oral Q4H PRN diazePAM (VALIUM) tablet 5-10 mg 5-10 mg Oral Q30MIN PRN gabapentin (NEURONTIN) capsule 300 mg 300 mg Oral TID melatonin tablet 3 mg 3 mg Oral At Bedtime PRN may repeat x1 nicotine (COMMIT) lozenge 2 mg 2 mg Oral Q1H PRN Or nicotine (NICORETTE) gum 2 mg 2 mg Oral Q1H PRN OLANZapine (ZyPREXA ZYDIS) disintegrating tablet 10 mg 10 mg Oral BID PRN QUEtiapine (SEROquel) tablet 100 mg 100 mg Oral TID [START ON 07/21/2023] thiamine (VITAMIN B-1) tablet 100 mg 100 mg Oral Daily Allergy No Known Allergies Objective BP (!) 152/85 (BP Cuff Size: Regular) Pulse (!) 109 Temp 98.3 ??F (36.8 ??C) (Skin) Resp 18 Ht 6' 1 (1.854 m) Wt 85.1 kg (187 lb 9.6 oz) SpO2 100% BMI 24.75 kg/m?? Physical Exam: Admission Physical Exam completed by Chon Rajan MD on 07/20/23. Labs Hospital Encounter on 07/18/23 (from the past 24 hour(s)) Rapid Drug Panel, Urine (with Confirmation) with [...] Detected Not Detected THC (Marijuana) Metab Screen Not Detected Not Detected Creatinine, Urine, Random 42 >20 mg/dL Narrative The absence of expected drug(s) and/or drug metabolite(s) may indicate non- compliance, inappropriate timing of specimen collection relative to drug administration, poor drug absorption, diluted/adulterated urine or limitations of testing. The concentration must be greater than or equal to the cutoff concentration to be reported as positive. For medical purposes only: not valid for forensic, legal, or employment use. C.Difficile Toxin,Molecular Detection,This order expires in 24 hours. Do NOT collect after: 07/20/2023; at: 3:15 PM Result Value Ref Range C.difficile by PCR Not Detected Not Detected Narrative Comment: A single negative test for C. difficile means the likelihood this organism is causing the diarrheal illness is extremely low. Therefore repeat testing within 7 days of the same diarrheal episode is strongly discouraged. Complete Blood Count-No Diff Result Value Ref Range WBC 8.8 3.5 - 10.5 x10(9)/L RBC 5.95 (H) 4.32 - 5.72 x10(12)/L Hemoglobin 17.7 (H) 13.5 - 17.5 g/dL HCT 52.6 (H) 38.8 - 50.0 % MCV 88.4 80.0 - 100.0 fL MCH 29.7 27.6 - 33.3 pg MCHC 33.7 31.5 - 35.2 g/dL RDW 13.9 11.9 - 15.5 % Platelets 178 150 - 450 x10(9)/L Automated NRBC 0 <=0 /100 WBC Comprehensive Metabolic Panel Result Value Ref Range Sodium 141 136 - 145 mmol/L Potassium 4.1 3.5 - 5.1 mmol/L Chloride 104 98 - 109 mmol/L CO2 25 20 - 29 mmol/L Anion Gap 12 6 - 16 mmol/L Calcium 9.7 8.4 - 10.4 mg/dL BUN 15 7 - 26 mg/dL Creatinine 1.10 0.73 - 1.18 mg/dL Alkaline Phosphatase 73 40 - 150 U/L AST (SGOT) 87 (H) 10 - 40 U/L ALT (SGPT) 43 <=55 U/L Bilirubin, Total 1.1 0.2 - 1.2 mg/dL Protein, Total 7.3 6.4 - 8.3 g/dL Albumin 3.5 3.5 - 5.0 g/dL Glucose 83 70 - 100 mg/dL GFR, Estimated >60 >60 mL/min/1.73m2 CK, Total Result Value Ref Range CK, Total 375 (H) 30 - 200 U/L Magnesium Result Value Ref Range Magnesium 2.1 1.6 - 2.6 mg/dL Additional EKG/Imaging refer to Hospital Medicine admission Report Completed by : Kristin Rutledge PA-C * Plan of Care - Laurita Ferrari RN - 07/20/2023 4:29 PM CDT [facility] Plan of Care Note Assessment: Alteration in mood and behavior Plan: Patient will be cooperative with cares and medication; encouragement to come out of room to common area, and will verbalize feelings and thoughts. Staff to assess and monitor moods, thoughts and behaviors. Patient will remain safe on unit. Subjective: I want to sleep right now, can we talk later? Objective: Patient was seen resting in room most of the shift. Patient appeared sad/ depressed. Pt is a 57 year old male admitted to unit at 1500 from [facility] for psych evaluation. Pt A/O x 4, calm and cooperative with admission process. Pt denied any pain, discomfort, SI, HI, AVH, thoughts of harming self or others at time of admit. Pt signed admission paper works, including DORA for son. Pt orientedto room/unit and expectations while on unit. Pt verbalized understanding, denied any questions has been adjusting well. Patient told staff that he came to the hospital with money and keys in his wallet but was not sent with his belongings to the unit. Charge nurse called [facility] to make inquiries about the money, he was told that the money has been sent to the business office. Pt has 8 keys that camewith his belonging to the unit. Patient's son called, patient stated he need to rest, he will call him later. Patient is medication compliant. No behavioral or safety concerns noted. 15 minute safetychecks provided. BP (!) 135/91 Pulse 98 Temp 98.3 ??F (36.8 ??C) (Skin) Resp 18 Ht 6' 1 (1.854 m) Wt 85.1kg (187 lb 9.6 oz) SpO2 100% BMI 24.75 kg/m?? --- End of Report --- * Plan of Care - Cece Trujillo RN - 07/20/2023 3:21 PM CDT Problem: Mood Impairment (Psychotic Signs/Symptoms) Goal: Improved Mood Symptoms (Psychotic Signs/Symptoms) Outcome: Progressing [facility] Plan of Care Note Assessment: anxiety Plan: Monitor for signs and symptoms of anxiety and medicate as needed. Provide interaction with pt to build trust. Encourage pt to verbalize concerns. Continue to assess and document. Discussed plan of care with patient, provider, and social work program coordinator. Subjective: Pt stated I didn't try to hurt myself, I was messed up on meth. Objective: Pt admitted to unit from [facility] at 1500. VS obtained, pt given tour of unit. Pt shown to hisroom. Pt is on 72 hr hold. Pt denies any SI, contracts for safety. Pt given some snacks and fluids.Pt denies any hallucinations or delusions. Pt reports meth use on weekends and stated he drinks 14 shots of [employer] liquor a day. Pt signed DORA for his son. --- End of Report --- documented in this encounter Administered Medications Active Administered Medications - up to 3 most recent administrations Medication Order MAR Action Action Date Dose Rate Site acetaminophen (TYLENOL) tablet 650 mg 650 mg, Oral, Q6H PRN, Pain/Fever, Initially give acetaminophen for patient with mild pain., Starting on Wed07/20/23 at 1619, Until Discontinued, Initially give acetaminophen for patient with mild pain. Acetaminophen may be given WITH other pain medications as adjunct pain relief. Do not give two acetaminophen containing medications within 4 hours of each other. Given 07/22/2023 8:59 AM CDT 650 mg amLODIPine (NORVASC) tablet 5 mg 5 mg, Oral, DAILY, First dose on Wed07/21/23 at 1730, Until Discontinued Given 07/22/2023 8:48 AM CDT 5 mg Given 07/21/2023 6:25 PM CDT 5 mg aspirin chewable tablet 81 mg 81 mg, Oral, DAILY, First dose on Wed07/22/23 at 0900, Until Discontinued Given 07/22/2023 8:48 AM CDT 81 mg atorvastatin (LIPITOR) tablet 20 mg 20 mg, Oral, EVENING, First dose (after last modification) on Wed07/21/23 at 1800, Until Discontinued Given 07/21/2023 6:25 PM CDT 20 mg bisacodyl (DULCOLAX) rectal suppository 10 mg 10 mg, Rectal, DAILY PRN, Constipation, No stool in the last 3 days, Starting on Wed07/20/23 at 1618, Until Discontinued, Cumulative bowel medication orders. Administer based on [...] platelet count is 50 k/cmm or less. cyclobenzaprine (FLEXERIL) tablet 10 mg 10 mg, Oral, TID PRN, Pain, muscle spasms, Starting on Wed07/21/23 at 1703, Until Discontinued, Indications: Muscle Spasm Given 07/22/2023 8:59 AM CDT 10 m g folic acid tablet 1 mg 1 mg, Oral, DAILY, First dose on Wed07/22/23 at 0900, Until Discontinued Given 07/22/2023 8:49 AM CDT 1 mg gabapentin (NEURONTIN) capsule 600 mg 600 mg, Oral, TID, First dose (after last modification) on Wed07/21/23 at 2100, Until Discontinued Given 07/22/2023 1:57 PM CDT 600 mg Given 07/22/2023 8:48 AM CDT 600 mg Given 07/21/2023 9:00 PM CDT 600 mg lidocaine (ASPERCREAM) 4 % patch 1 Patch 1 Patch, Transdermal, DAILY, First dose on Wed07/22/23 at 1315, Until Discontinued, Apply patch to area of back pain. Patch may remain in place for up to 12 hours in any 24 hour period, i.e. patches placed at 0800 should be removed at 2000. May cut patch to appropriate size. Patch Applied 07/22/2023 1:57 PM CDT 1 Patc h Back metoprolol succinate (TOPROL XL) extended release tablet 25 mg 25 mg, Oral, DAILY, First dose on Wed07/22/23 at 0900, Until Discontinued, Tablet may be split in half, but not crushed. Given 07/22/2023 8:48 AM CDT 25 mg nicotine (COMMIT) lozenge 2 mg 2 mg, Oral, Q1H PRN, Smoking Cessation, Starting on Wed07/20/23 at 1618, Until Discontinued, Give gum as first line. Use lozenges if gum is not effective or if patient refuses gum. Maximum 5 lozenges/6 hours OR 20 lozenges/day., Indications: Nicotine Dependence nicotine (NICORETTE) gum 2 mg 2 mg, Oral, Q1H PRN, Smoking Cessation, Starting on Wed07/20/23 at 1618, Until Discontinued, Slow paced chewing and intermittent packing in cheek. Maximum 24 pieces/day. Give gum as first line. Use lozenges if gum is not effective or if patient refuses gum., Indications: Nicotine Dependence OLANZapine (ZyPREXA ZYDIS) disintegrating tablet 10 mg 10 mg, Oral, BID PRN, Agitation, Psychosis, Starting on Wed07/20/23 at 1638, Until Discontinued pantoprazole DR (PROTONIX) tablet 40 mg 40 mg, Oral, DAILY AT 0600, First dose on Wed07/22/23 at 0600, Until Discontinued Given 07/22/2023 6:42 AM CDT 40 mg polyethylene glycol (MIRALAX) oral powder 17 g 17 g, Oral, DAILY PRN, Constipation, No stool in the last 2 days, Starting on Wed07/20/23 at 1618, Until Discontinued, Cumulative bowel medication orders. Administer based on [...] again until patient stools. QUEtiapine (SEROquel) tablet 400 mg 400 mg, Oral, HS, First dose on Wed07/22/23 at 2100, Until Discontinued, Indications: SCAD senna (SENOKOT) tablet 2 Tablet 2 Tablet, Oral, BID PRN, Constipation, No stool in the last day, Starting on Wed07/20/23 at 1618, Until Discontinued, Cumulative bowel medication orders. Administer based on [...] until patient stools. thiamine (VITAMIN B-1) tablet 100 mg 100 mg, Oral, DAILY, First dose (after last modification) on Wed07/21/23 at 0900, Until Discontinued Given 07/22/2023 8:48 AM CDT 100 mg Given 07/21/2023 8:14 AM CDT 100 mg Inactive Administered Medications - up to 3 most recent administrations Medication Order MAY Action Action Date Dose Rate Site gabapentin (NEURONTIN) capsule 300 mg 300 mg, Oral, TID, First dose (after last modification) on Wed07/20/23 at 2100, Until Discontinued Given 07/21/2023 1:27 PM CDT 300 mg Given 07/21/2023 8:14 AM CDT 300 mg Given 07/20/2023 8:06 PM CDT 300 mg QUEtiapine (SEROquel) tablet 100 mg 100 mg, Oral, TID, First dose (after last modification) on Wed07/20/23 at 2100, Until Discontinued Given 07/21/2023 1:27 PM CDT 100 mg Given 07/21/2023 8:14 AM CDT 100 mg Given 07/20/2023 8:06 PM CDT 100 mg QUEtiapine (SEROquel) tablet 200 mg 200 mg, Oral, HS, First dose (after last modification) on Wed07/21/23 at 2100, Last dose on Wed07/21/23 at 2100, For 1 dose Given 07/21/2023 9:00 PM CDT 200 mg documented in this encounter Active and Recently Administered Medications Times are shown in CDT. Scheduled Medication Order 07/20/2023 07/21/2023 07/22/2023 amLODIPine (NORVASC) tablet 5 mg 5 mg, Oral, DAILY, First dose on Wed07/21/23 at 1730, Until Discontinued 1825 (Given - Provider: Anca Finney RN) 0848 (Given - Provider: Cece Trujillo RN) aspirin chewable tablet 81 mg 81 mg, Oral, DAILY, First dose on Wed07/22/23 at 0900, Until Discontinued 0848 (Given - Provider: Cece Trujillo RN) atorvastatin (LIPITOR) tablet 20 mg 20 mg, Oral, EVENING, First dose (after last modification) on Wed07/21/23 at 1800, Until Discontinued 1825 (Given - Provider: Anca Finney RN) 1700 (Due) folic acid tablet 1 mg 1 mg, Oral, DAILY, First dose on Wed07/22/23 at 0900, Until Discontinued 0849 (Given - Provider: Cece Trujillo RN) gabapentin (NEURONTIN) capsule 300 mg (CANCELED) 300 mg, Oral, TID, First dose (after last modification) on Wed07/20/23 at 2100, Until Discontinued 2005 (Given - Provider: Laurita Ferrari RN) 0814 (Given - Provider: Cece Trujillo RN)1327 (Given - Provider: Cece Trujillo RN) gabapentin (NEURONTIN) capsule 600 mg 600 mg, Oral, TID, First dose (after last modification) on Wed07/21/23 at 2100, Until Discontinued 2100 (Given - Provider: Anca Finney RN) 0848 (Given - Provider: Cece Trujillo RN)1357 (Given - Provider: Cece Trujillo RN)2100 (Due) lidocaine (ASPERCREAM) 4 % patch 1 Patch 1 Patch, Transdermal, DAILY, First dose on Wed07/22/23 at 1315, Until Discontinued, Apply patch to area of back pain. Patch may remain in place for up to 12 hours in any 24 hour period, i.e. patches placed at 0800 should be removed at 2000. May cut patch to appropriate size. 1357 (Patch Applied - Provider: Cece Trujillo RN) metoprolol succinate (TOPROL XL) extended release tablet 25 mg 25 mg, Oral, DAILY, First dose on Wed07/22/23 at 0900, Until Discontinued, Tablet may be split in half, but not crushed. 0848 (Given - Provider: Cece Trujillo RN) pantoprazole DR (PROTONIX) tablet 40 mg 40 mg, Oral, DAILY AT 0600, First dose on Wed07/22/23 at 0600, Until Discontinued 0642 (Given - Provider: Alicia Kingsley RN) QUEtiapine (SEROquel) tablet 100 mg (CANCELED) 100 mg, Oral, TID, First dose (after last modification) on Wed07/20/23 at 2100, Until Discontinued 2005 (Given - Provider: Laurita Ferrari RN) 0814 (Given - Provider: Cece Trujillo RN)1327 (Given - Provider: Cece Trujillo RN) QUEtiapine (SEROquel) tablet 200 mg (COMPLETED) 200 mg, Oral, HS, First dose (after last modification) on Wed07/21/23 at 2100, Last dose on Wed07/21/23 at 2100, For 1 dose 2099 (Given - Provider: Anca Finney RN) QUEtiapine (SEROquel) tablet 400 mg 400 mg, Oral, HS, First dose on Wed07/22/23 at 2100, Until Discontinued, Indications: SCAD 2099 (Due) thiamine (VITAMIN B-1) tablet 100 mg 100 mg, Oral, DAILY, First dose (after last modification) on Wed07/21/23 at 0900, Until Discontinued 0814 (Given - Provider: Cece Trujillo RN) 0848 (Given - Provider: Cece Trujillo RN) PRN Medication Order 07/20/2023 07/21/2023 07/22/2023 acetaminophen (TYLENOL) tablet 650 mg 650 mg, Oral, Q6H PRN, Pain/Fever, Initially give acetaminophen for patient with mild pain., Starting on Wed07/20/23 at 1619, Until Discontinued, Initially give acetaminophen for patient with mild pain. Acetaminophen may be given WITH other pain medications as adjunct pain relief. Do not give two acetaminophen containing medications within 4 hours of each other. 0859 (Given - Provid er: Cece Trujillo RN) bisacodyl (DULCOLAX) rectal suppository 10 mg(Linked Group 1) 10 mg, Rectal, DAILY PRN, Constipation, No stool in the last 3 days, Starting on Wed07/20/23 at 1618, Until Discontinued, Cumulative bowel medication orders. Administer based on [...] Q4H PRN, Heartburn, Upset Stomach, Starting on Wed07/20/23 at 1612, Until Discontinued, For indigestion/upset stomach cloNIDine (CATAPRES) tablet 0.1 mg 0.1 mg, Oral, Q4H PRN, Other, SBP greater than 160 and/or DBP greater than 110, Starting on Wed07/20/23 at 1623, Until Discontinued cyclobenzaprine (FLEXERIL) tablet 10 mg 10 mg, Oral, TID PRN, Pain, muscle spasms, Starting on Wed07/21/23 at 1703, Until Discontinued, Indications: Muscle Spasm 0859 (Given - Provid er: Cece Trujillo RN) diazePAM (VALIUM) tablet 5-10 mg 5-10 mg, Oral, Q30MIN PRN, Using CIWA Scale, Starting on Wed07/20/23 at 1622, Until Discontinued, Monitor CIWA-Ar frequency per nursing order If CIWA-Ar score is: *9 or less: GIVE NO MEDICATION *10-15: give 5 mg *16 or greater: give 10 mg melatonin tablet 3 mg 3 mg, Oral, HS PRN, MAY REPEAT x 1, Sleep, Starting on Wed07/20/23 at 1619, Until Discontinued nicotine (COMMIT) lozenge 2 mg(Linked Group 2) 2 mg, Oral, Q1H PRN, Smoking Cessation, Starting on Wed07/20/23 at 1618, Until Discontinued, Give gum as first line. Use lozenges if gum is not effective or if patient refuses gum. Maximum 5 lozenges/6 hours OR 20 lozenges/day., Indications: Nicotine Dependence nicotine (NICORETTE) gum 2 mg(Linked Group 2) 2 mg, Oral, Q1H PRN, Smoking Cessation, Starting on Wed07/20/23 at 1618, Until Discontinued, Slow paced chewing and intermittent packing in cheek. Maximum 24 pieces/day. Give gum as first line. Use lozenges if gum is not effective or if patient refuses gum., Indications: Nicotine Dependence OLANZapine (ZyPREXA ZYDIS) disintegrating tablet 10 mg 10 mg, Oral, BID PRN, Agitation, Psychosis, Starting on Wed07/20/23 at 1638, Until Discontinued polyethylene glycol (MIRALAX) oral powder 17 g(Linked Group 1) 17 g, Oral, DAILY PRN, Constipation, No stool in the last 2 days, Starting on Wed07/20/23 at 1618, Until Discontinued, Cumulative bowel medication orders. Administer based on [...] stool in the last day, Starting on Wed07/20/23 at 1618, Until Discontinued, Cumulative bowel medication orders. Administer based on [...] stool in the last day, Starting on Wed07/20/23 at 1618, Until Discontinued, Cumulative bowel medication orders. Administer based on [...] in the last 2 days, Starting on Wed07/20/23 at 1618, Until Discontinued, Cumulative bowel medication orders. Administer based on [...] in the last 3 days, Starting on Wed07/20/23 at 1618, Until Discontinued, Cumulative bowel medication orders. Administer based on [...] is 50 k/cmm or less. Group 2: nicotine (COMMIT) lozenge 2 mgJump to med 2 mg, Oral, Q1H PRN, Smoking Cessation, Starting on Wed07/20/23 at 1618, Until Discontinued, Give gum as first line. Use lozenges if gum is not effective or if patient refuses gum. Maximum 5 lozenges/6 hours OR 20 lozenges/day., Indications: Nicotine Dependence Or nicotine (NICORETTE) gum 2 mgJump to med 2 mg, Oral, Q1H PRN, Smoking Cessation, Starting on Wed07/20/23 at 1618, Until Discontinued, Slow paced chewing and intermittent packing in cheek. Maximum 24 pieces/day. Give gum as first line. Use lozenges if gum is not effective or if patient refuses gum., Indications: Nicotine Dependence documented in this encounter Care Teams Professor Of Family Medicine Relationship Specialty Start Date End Date Briana Vazquez PAAshleyC [address] [place] [address] PCP - General Physician Measuring Machine Operator 11/29/19 documented as of this encounter
--- OUTSIDE RECORDS SUMMARY | 2023-07-22 15:06 | XMS_ITS | Encounter Summary ---
Author Name Unknown Organization [facility] Address [address] [address] Care Team Providers Care Coal Mine Inspector Name Role Phone Briana Vazquez PA-C Primary Care Provider [phone] Reason for Visit * Auth/Cert (Routine) Specialty Diagnoses / Procedures Referred By Contbarry t Referred To Contact Diagnoses Agitation USAMA (acute kidney injury) (HRC) Intentional overdose, initial encounter (HRC) Tachycardia Hypertension, unspecified type (HRC) AMS USAMA (acute kidney injury) (HRC) Intentional overdose, initial encounter (HRC) Agitation Tachycardia Hypertension, unspecified type (HRC) Referral ID Status Reason Start Date Expiration Date Visits Re quested Visits Authorized [id number] 1 Encounter Details Date Type Department Care Team (Late st Contact Info) Description 07/19/2023 10:05 AM CDT Ancillary Procedure [facility] [address] [address] Social History Tobacco Use Types Packs/Day Years [...] place to sleep or slept in a long-term (including now)? No 05/07/2023 Sex and Gender Information Value Date Recorded Sex Assigned at Not on file Gender Identity Not on file Sexual Orientation Not on file documented as of this encounter Plan of Treatment Not on file documented as of this encounter Procedures Procedure Name Priority Date/Time Associated Diagnosis Comments CT HEAD WO IV CONT STAT 07/19/2023 12 :14 PM CDT documented in this encounter Results * CT Head WO IV Cont (07/19/2023 12:14 PM CDT) Anatomical Region Laterality Modality Head Computed Tomogra phy 07/19/2023 12:1 4 PM CDT Narrative 07/19/2023 12:49 PM CDT EXAM: CT HEAD WO IV CONT LOCATION: [facility] DATE: 07/19/2023 INDICATION: Hallucinations, confusion, unknown [...] EXAM: CT HEAD WO IV CONT LOCATION: [facility] DATE: 07/19/2023 INDICATION: Hallucinations, confusion, unknown [...] acute infarct. Sarah Aguirre MD RAD CT documented in this encounter Visit Diagnoses Not on filedocumented in this encounter Care Teams Coal Mine Inspector Relationship Specialty Start Date End Date Briana Vazquez PA-C [address] [place] [address] PCP - General Physician Is Analyst 11/29/19 documented as of this encounter
--- OUTSIDE RECORDS SUMMARY | 2023-07-22 15:06 | XMS_ITS | Encounter Summary ---
Author Name Unknown Organization [facility] Address [address], [place] [address] Care Team Providers Care Electric Motor And Generator Assembler Name Role Phone Briana Vazquez PA-C Primary Care Provider [phone] Encounter Details Date Type Department Care Team (Late st Contact Info) Description 07/18/2023 [facility] DEPARTMENT Provider, MD Uvaldo Interface provider interface provider, [place] [id number] [place] [address] 07/18/2023 Social History Tobacco Use Types Packs/Day Years [...] place to sleep or slept in a custodial (including now)? No 05/07/2023 Sex and Gender Information Value Date Recorded Sex Assigned at Not on file Gender Identity Not on file Sexual Orientation Not on file documented as of this encounter Plan of Treatment Not on file documented as of this encounter Visit Diagnoses Not on filedocumented in this encounter Care Teams Electric Motor And Generator Assembler Relationship Specialty Start Date End Date Briana Vazquez PA-C [address] [place] [address] PCP - General Physician Linen Checker 11/29/19 documented as of this encounter
--- OUTSIDE RECORDS SUMMARY | 2023-07-22 15:06 | XMS_ITS | Encounter Summary ---
Author Name Unknown Organization [facility] Address [address], [place] [address] Care Team Providers Care End Packer Name Role Phone Briana Vazquez PA-C Primary Care Provider [phone] Reason for Referral * Consult/Transfer Care (Routine) - New Request Specialty Diagnoses / Procedures Referred By Pinky osorio Referred To Contact Cardiology Diagnoses Elevated troponin Laurie Tineo PA-C [address] [place] [id number] Referral ID Status Reason Start Date Expiration Date V isits Requested Visits Authorized [id number] New Request 05/10/2023 08/08/2024 1 1 Scheduling Instructions Your clinician has recommended an appointment with [facility] Cardiology. You can quickly make your appointment online at [facility]/schedule. You can also call [phone] for help scheduling your appointment. We suggest you call your health insurance company about your coverage and benefits for this appointment. Question Answer Appointment Urgency? Non-Urgent Reason for visit? elevated troponin during hospitalization Comments [facility]: Heart Center; ( FAMILY OF CARE REFERRAL) [phone]; [address] [place] [id number] [employer] * Consult/Transfer Care (Routine) - New Request Specialty Diagnoses / Procedures Referred By Pinky osorio Referred To Contact Diagnoses S/P lumbar spinal fusion Laurie Tineo PA-C [address] [place] [id number] Referral ID Status Reason Start Date Expiration Date V isits Requested Visits Authorized [id number] New Request 05/10/2023 08/08/2024 1 1 Scheduling Instructions Your clinician has recommended an appointment for a pain consultation within [facility]. For scheduling at our [facility] or [place] location please call [phone]. To schedule at our [place] location call [phone]. Question Answer Appointment Urgency? Non-Urgent Consult for Comprehensive Pain Assessment Reason for visit? chronic back pain, lives in [place], [place] Outpatient Appt Need? Consult [employer] Reason for Visit * Auth/Cert (Routine) Specialty Diagnoses / Procedures Referred By Pinky osorio Referred To Contact Diagnoses Psychotic disorder (HRC) . Referral ID Status Reason Start Date Expiration Date Visits Re quested Visits Authorized [id number] 1 1 Encounter Details Date Type Department Care Team (Latest Contact Info) Description 05/08/2023 6:31 PM [employer] - 05/10/2023 11:33 AM [employer] Hospital Encounter NE4 [address] [place] [address] Genet Crawley MD [address] [place] [address] S/P lumbar spinal fusion (Primary Dx); Elevated [...] Comments Blood Pressure 172/96 05/10/2023 7:55 AM [employer] Pulse 80 05/10/2023 7:55 AM [employer] Temperature 36.7 ??C (98 ??F) 05/10/2023 7:55 AM [employer] Respiratory Rate 18 05/10/2023 7:55 AM [employer] Oxygen Saturation 99% 05/10/2023 7:55 AM [employer] Inhaled Oxygen Concentration - - Weight 92.4 kg (203 lb 11.2 oz) 05/08/2023 6:34 PM [employer] Height 185.4 cm (6' 1) 05/08/2023 6:34 PM [employer] Body Mass Index 26.87 05/08/2023 6:34 PM [employer] documented in this encounter Discharge Summaries * Genet Crawley MD - 05/10/2023 8:20 AM CST [facility] PSYCHIATRY DISCHARGE SUMMARY Admission Date and Time: [...] was hospitalized after the of his brother [id number] when he was not doing well. He [...] other medical symptoms. He is aware that [facility] will be seeing him. He shows no [...] The multidisciplinary treatment team met (RN, OT, protective services social worker, Physician) on a daily basis to discuss patient care and treatment planning. The psychiatric inpatient setting provided close nursing supervision and access to multiple treatment modalities and programming (group therapy, OT, one-to-one therapy.) Patient support systems such as family, case packer, and other care providers were contacted as appropriate for collateral information and treatment planning. 1. Medication Trials and Changes: resumed seroquel, dose titrated to 400 mg hs, pt may resume RECRUITMENT AND OUTREACH ASSISTANT dose as tolerated under care of his [...] the last month or so (once in [place], once in [place], [place]) and was told my kidneys are [...] hx of SI with Psych admission at [facility] [id number]: - Meth use d/o, EtOH use d/o [...] f/u with primary care Dr. Massey at [facility], [facility] referred pt to pain clinic (chronic back pain) Discharge Orders (Non-med) Code Status / Reason for Admission / Advance Directive Comments: Code Status: full Reason for Admission: encephalopaty Health Care Decision Maker / POA: self When to Resume Normal Activities: Comments: You may resume normal activities at the time you are discharged Regular Diet Comments: Pharmacist Assistant needed? No [2] No Pending Labs Discharge [...] health PAIN CONSULT - ADULT References: Referral [facility] Consult Page Question Answer Comment Appointment Urgency? Non-Urgent Consult for Comprehensive Pain Assessment Reason for visit? chronic back pain, lives in [place], [place] Outpatient Appt Need? Consult Cardiology Referral - Adults Comments: [facility]: Heart Center; ( FAMILY OF CARE REFERRAL) [phone]; [address] [place] [address] References: Referral [facility] Consult Page Question Answer [...] by: Genet Crawley MD 05/10/2023, 12:10 PM [facility] [employer] documented in this encounter Discharge Instructions * Discharge Instructions* Mariam Jameson [facility] - 05/10/2023 9:28 AM [employer] Resources 1. [place] [facility] [address], [address], [place], [place] [address] [place] [address] ([employer] [facility]) improves the lives of children and adults withmental illnesses and their families by providing free classes on mental illnesses and support groups for adults with mental illnesses, parents and family members. For more information: Toll free: 7-830-FRBA-HELPS Website: www.namihelPlayyOn.org 2. Online go to: www.[place]Help.info 3. Urgent Care for Adult Mental Health (serving [facility] & [facility]) [address] [place] [address] Crisis Line Numbers 1. [facility] [phone] 2. [facility]gen[facility] (COPE) [phone] 3. [facility] [phone] 4. National Suicide Prevention Lifeline 98 [employer] * Appointments* Mariam Jameson [facility] - 05/10/2023 9:58 AM [employer] As discussed with your care team. Please contact your primary care provider for an appointment. [employer] * Discharge Instr - Safety* Mariam Jameson [facility] - 05/08/2023 2:39 PM [employer] Call your clinic or seek medical help if you have any sudden change in your condition or if you have any of the following: Suicidal or homicidal thoughts,increase in agitation or anxiety,increase in paranoia,feelings of hopelessness,voices becoming bothersome,medication side effects not tolerable. [employer] documented in this encounter Medications at Time [...] (40 mg) by mouth every evening. 05/10/2023 folic acid 1 MG tablet Take [...] Take 1 hour before a meal. 05/10/2023 thiamine 100 MG tablet Take 2 Tablets (200 mg) by mouth daily. 60 Tablet 05/08/2023 06/09/2023 cyclobenzaprine (FLEXERIL) 10 MG tabletIndications:Mus ron Spasm Take 1 Tablet (10 mg) by mouth three times a day as needed. Indications: Muscle Spasm 60 Tablet 05/10/2023 07/20/2023 QUEtiapine (SEROQUEL) 400 MG tabletIndications:Bip olar Mood Disorder Take 2 Tablets (800 mg) by mouth daily at bedtime. Indications: Manic-Depression 05/10/2023 07/20/2023 documented as of this encounter Progress Notes * Laurie Tineo PA-C - 05/09/2023 3:47 PM CST Non-billable med note Pt sleeping-> not seen Please encourage oral intake, especially fluid intake Plan labs tomorrow, will see tomorrow Laurie Tineo PA-C [employer] documented in this encounter Consult Notes * [...] bipolar vs substance-induced mood d/o. Transferred to [facility] on 05/07 Seen this morning Reports [...] start before May 09, 2023. 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 Tobacco Use Smoking status: Former Current packs/day: [...] Resource Strain: High Risk (03/08/2021) Re[facility] from [facility] [employer] [facility] Financial Resource Strain Difficulty of Paying Living [...] the last month or so (once in [place], once in [place], [place]) and was told my kidneys are [...] hx of SI with Psych admission at [facility] [id number]: - Meth use d/o, EtOH use d/o [...] 55 minutes including, but not limited to, fie-itgx-hg-face time spent reviewing records, counseling, and coordination of care. Thank you for the opportunity to care for Nicanor Alvarado. I will continue to follow along with you. Laurie Tineo PA-C [facility] medicine [employer] documented in this encounter OR Notes * H&P - Genet Crawley MD - 05/09/2023 8:37 AM CST [facility] DEPARTMENT OF PSYCHIATRY ADMISSION Nicanor Alvarado Admission [...] was hospitalized after the of his brother [id number] when he was not doing well. He [...] cars he needs to get out of [facility] (his son's and his own.) He says his son(adult) is at his mother's house. He lives with mother. He does not want staff here to call his mother. Says not interested and says he can call her himself. He says she knows he is in hospital. He denies chest pain or other medical symptoms. He is aware that [facility] will be seeing him. He shows no [...] Family of Origin: Grew up in a christianity family in [place]. Had an older brother who in a [...] Marital Status: Single, has been in previous penitentiary relationship for 7 years and had 2 kids. Children (ages, sex): 2 children, one in 2016 by suicide. Reason for end of marriage: Unclear Living situation: Lives with mother currently. Work History (longest job, last job, current support): Has worked at [employer] in past. Leisure Activities: Not Asked Legal [...] 24 hour(s)). Additional EKG/Imaging See C61 notes. Impression Nicanor Alvarado is a 57 y.o. [...] the last month or so (once in [place], once in [place], [place]) and was told my kidneys are [...] hx of SI with Psych admission at [facility] [id number]: fidgety, agitated. Endorsed auditory hallucinations telling him [...] protocol. (Gabapentin). Schedule valium 10 mg bid. med to follow Level of Observation: No [...] care doctor. NE4 attending Genet Crawley MD [employer] documented in this encounter Miscellaneous Notes * [...] instructions or negotiate needs Meets Criteria: YES [employer] documented in this encounter Plan of Treatment Scheduled Referrals Name Type Priority Associated Diagnoses Orde r Schedule PAIN CONSULT - ADULT Referral Routine S/P lumbar spinal fusion Ordered: 05/10/2023 Cardiology Referral - Adults Referral Routine Elevated troponin Ordered: 05/10/2023 documented as of this encounter Procedures Procedure Name Priority Date/Time Associated Diagnosis Comments BASIC METABOLIC PANEL Routine 05/10/2023 8:06 AM [employer] documented in this encounter Results * (ABNORMAL) Basic Metabolic Panel (05/10/2023 8:06 AM [employer]) Sodium 139 136 - 145 mmol/L 05/10/2023 8:49 AM [facility] Potassium 3.8 3.5 - 5.1 mmol/L 05/10/2023 8:49 AM [facility] Comment:Specimen slightly he molyzed. Hemolysis may affect result. Chloride 102 98 - 109 mmol/L 05/10/2023 8:49 AM [facility] CO2 26 20 - 29 mmol/L 05/10/2023 8:49 AM [facility] Anion Gap 11 7 - 16 mmol/L 05/10/2023 8:49 AM [facility] Calcium 10.1 8.4 - 10.4 mg/dL 05/10/2023 8:49 AM [facility] BUN 17 7 - 26 mg/dL 05/10/2023 8:49 AM [facility] Creatinine 1.30(H) 0.73 - 1.18 mg/dL 05/10/2023 8:49 AM [facility] Glucose 84 70 - 100 mg/dL 05/10/2023 8:49 AM [facility] Comment:The given reference range is for the fasting state. Non-fasting reference range for glucose is 70 - 180 mg/dL. GFR, Estimated >60 >60 mL/min/1.7 3m2 05/10/2023 8:49 AM [facility] Blood Venipuncture / Unknown 05/10/2023 8:06 AM [employer] 05/10/2023 8:12 AM [facility] Laurie Tineo PA-C LAB_1 Performing Organization Address [facility] [place] [address], [facility] documented in this encounter Visit Diagnoses Diagnosis [...] Welch RN - 05/10/2023 11:17 AM CST [facility] Discharge Note - Nursing Admission Date/Time: 05/08/2023 [...] stored: N/A --- End of Report --- [employer] * Initial Assessments - Thelma Worthy OTR/L - 05/10/2023 10:58 AM [employer] [facility] OT Initial Assessment Diagnosis: Encounter Diagnoses Name Primary? 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 He is receptive to technical writer orienting him to group and encouraging attendance despite being discharge focused and hoping to leave today. Rest Room Matron encourages journaling as a way to occupy [...] and plan. --- End of Report --- [employer] * Plan of Care - Hazel Mosher MSW, BLOOD BANK MANAGER - 05/10/2023 9:20 AM [employer] [facility] Social Work Discharge Note Admission Date/Time: 05/08/2023 6:31 PM Attending Practitioner: Genet Crawley MD County: [place] Insurance: HU[employer] Secondary Insurance: N/A Disposition: Home Expected Discharge Date/Time: 05/10/2023 00:01 Legal Status at Discharge: 72 Hour Hold, lifted Transportation Arrangements: Transportation Provided By: Family/friend Discharge Collateral Contact: Collateral Contacts: Other Contact 1, Other Contact 2 Release of Information?: No Other Contact Name : son Salvatore Alvarado Other Contact [employer] Services: Resources provided [...] he felt that it was necessary to black pickler his son from [facility]. SW relayed not being up to date on fines for DUIs and provided information on how to [facility]/paralegal assistant. Pt denied SI, SIB, HI, CD concerns. Pt son is picking him up. [employer] * Plan of Care - Jesika Welch RN - 05/10/2023 8:45 AM CST Problem: Mood Impairment (Psychotic Signs/Symptoms) Goal: Improved Mood Symptoms (Psychotic Signs/Symptoms) Outcome: Progressing [facility] Plan of Care Note Assessment: Anxious, cooperative [...] a drive. --- End of Report --- [employer] * Plan of Care - Thelma Worthy OTR/Sebastien - 05/10/2023 7:14 AM CST [facility] Occupational Therapy Plan of Care Note Group [...] and Recovery (IM&R), Unit, Grooming and/or Movement/Exercise. [employer] * Plan of Care - Jaqui Head RN - 05/10/2023 5:02 AM CST [facility] Plan of Care Note Assessment: Sleep Plan: [...] a 4. --- End of Report --- [employer] * Plan of Care - Anca Finney RN - 05/09/2023 9:10 PM CST Problem: Adult Inpatient Plan of Care Goal: Optimal Comfort and Wellbeing Outcome: Progressing [facility] Plan of Care Note Assessment: General Plan [...] or AH --- End of Report --- [employer] * Plan of Care - Jesika Welch RN - 05/09/2023 10:13 AM CST Problem: Mood Impairment (Psychotic Signs/Symptoms) Goal: Improved Mood Symptoms (Psychotic Signs/Symptoms) Outcome: Progressing [facility] Plan of Care Note Assessment: Irritable, restless [...] all shift. --- End of Report --- [employer] * Initial Assessments - Brooklyn Ibarra MSW, BLOOD BANK MANAGER - 05/09/2023 8:11 AM [employer] [facility] Social Work Initial Assessment Admission Date/Time: 05/08/2023 6:31 PM Age: 57 y.o. Attending Practitioner: Genet Crawley MD County: [place] Admitting Diagnosis: No diagnosis found. Reason for admit: Patient admitted to the [facility] ED on 05/08/2023 after being brought in [...] On Admission: 72 hour hold. Start Date/Time: 05/08/23 1251, End Date/Time: 05/20/23 0001 Current: 72 hour hold. Start Date/Time: 05/08/23 1251, End Date/Time: 05/20/23 0001 Committed: No Current Order Received in Chart: No Legal Issues: Arrested for a DWI prior to being brought to [facility]. Living Situation: Parents, Other relatives (comment) (Son) [...] Most recent admissions were 09/10/2015 to 09/18/2015 ([place] [address]) and 09/23/2015-10/07/2015 ([facility]). Patient endorses regular use of Methamphetamine [...] Chart review completed. Consulted with Dr. Genet Crawley. Patient may likely be able to discharge [...] community provider, does not identify as having AR, No readiness to engage in treatment) AR Treatment Recommendations for Inpatient/Outpatient: Invite to educational [...] Anticipated Disposition: Medication Management and Outpatient Supports? [employer] * Plan of Care - Radha Mao RN - 05/09/2023 6:29 AM CST Pt slept through the night, no behavioral concerns noted. CIWA; 0 . 15 min checks ongoing. [employer] * Plan of Care - Ángel Galicia [...] He initially refused Clonidine, but accepted itwhen technical writer approached again later. He requested a pain medication, but refused Tylenol and only wanted Diclofenac. The request was denied by the provider based on his kidney health and pain management consultation. He accepted his scheduled medication. [employer] * Initial Assessments - Sebas Pedraza, DYE HOUSE VAT WORKER, COOK HOUSE SUPERVISOR - 05/08/2023 6:34 PM [employer] Nicanor Alvarado 05/08/2023 6:34 PM Patient has been transferred to [facility] from the medicine service. he has [...] the last month or so (once in [place], once in [place], [place]) and was told my kidneys are [...] hx of SI with Psych admission at [facility] [id number]: fidgety, agitated. Endorsed auditory hallucinations telling him [...] restarted - first dose 3/2 HS. -Hold RECRUITMENT AND OUTREACH ASSISTANT Lexapro 20mg daily -Hold RECRUITMENT AND OUTREACH ASSISTANT Trazodone 200mg BID -Hold RECRUITMENT AND OUTREACH ASSISTANT Prazosin 2mg qHS -Continue gabapentin 600mg TID and can increase to 900mg TID to help manage withdrawal symptoms if needed -Recommend CIWA Plan Psychiatric Orders have been completed. Sebas Pedraza APRN, CNP [employer] documented in this encounter Administered Medications Inactive [...] in all forms Given 05/10/2023 6:40 AM [employer] 650 mg aspirin chewable tablet 81 mg 81 mg, Oral, DAILY, First dose (after last modification) on Wed05/09/23 at 0900, Until Discontinued Given 05/10/2023 7:49 AM [employer] 81 mg Given 05/09/2023 8:02 AM [employer] 81 mg atorvastatin (LIPITOR) tablet 40 mg 40 mg, Oral, DAILY - 1999, First dose (after last modification) on 05/08/23 at 2000, Until Discontinued Given 05/09/2023 8:32 PM [employer] 40 mg Given 05/08/2023 8:58 PM [employer] 40 mg bisacodyl (DULCOLAX) rectal suppository 10 [...] withdrawal associated hypertension Given 05/10/2023 7:55 AM [employer] 0.1 mg Given 05/08/2023 8:58 PM [employer] 0.1 mg cyclobenzaprine (FLEXERIL) tablet 10 mg 10 mg, Oral, TID PRN, Muscle Spasms, Pain, Starting on Wed05/10/23 at 1008, Until Wed05/10/23 at 1421 diazePAM (VALIUM) tablet 10 mg 10 mg, Oral, BID, First dose on 05/09/23 at 1400, Until Discontinued, Indications: Alcohol Withdrawal Syndrome Given 05/10/2023 7:48 AM [employer] 10 mg Given 05/09/2023 8:31 PM [employer] 10 mg Given 05/09/2023 1:13 PM [employer] 10 mg diazePAM (VALIUM) tablet 2.5-10 mg [...] Indications: alcohol withdrawal Given 05/09/2023 8:02 AM [employer] 5 mg diazePAM (VALIUM) tablet 5-10 mg 5-10 mg, Oral, Q30MIN PRN, Using CIWA Scale, Starting on Wed05/09/23 at 1007, Until Wed05/10/23 at 1421, Monitor CIWA-Ar frequency per nursing order If CIWA-Ar score is: *9 or less: GIVE NO MEDICATION *10-15: give 5 mg *16 or greater: give 10 mg folic acid tablet 1 mg 1 mg, Oral, DAILY, First dose (after last modification) on Wed05/09/23 at 0900, Until Discontinued Given 05/10/2023 7:47 AM [employer] 1 mg Given 05/09/2023 8:02 AM [employer] 1 mg gabapentin (NEURONTIN) capsule 600 mg 600 mg, Oral, TID, First dose (after last modification) on 05/08/23 at 2100, Until Discontinued, Swallow whole. Given 05/09/2023 8:02 AM [employer] 600 mg Given 05/08/2023 8:58 PM [employer] 600 mg gabapentin (NEURONTIN) capsule 600 mg 600 mg, Oral, TID, First dose (after last modification) on 05/09/23 at 1400, Until Discontinued, Swallow whole., Indications: Alcohol Withdrawal Syndrome Given 05/10/2023 7:48 AM [employer] 600 mg Given 05/09/2023 8:30 PM [employer] 600 mg Given 05/09/2023 1:12 PM [employer] 600 mg lidocaine (ASPERCREAM) 4 % patch [...] appropriate size. Patch Applied 05/10/2023 7:47 AM [employer] 1 Patch Other (Comment) methocarbamol (ROBAXIN) tablet 500 mg 500 mg, Oral, TID PRN, Muscle Spasms, Starting on 05/08/23 at 1844, Until 05/10/23 at 1022 Given 05/09/2023 4:55 PM [employer] 500 mg metoprolol succinate (TOPROL XL) extended release tablet 25 mg 25 mg, Oral, DAILY, First dose (after last modification) on 05/09/23 at 0900, Until Discontinued, Tablet may be split in half, but not crushed. Given 05/10/2023 7:48 AM [employer] 25 mg Given 05/09/2023 8:02 AM [employer] 25 mg OLANZapine (ZyPREXA) 10 mg in [...] 0600, Until Discontinued Given 05/10/2023 6:32 AM [employer] 40 mg Given 05/09/2023 6:53 AM [employer] 40 mg polyethylene glycol (MIRALAX) oral powder [...] 2100, Until Discontinued Given 05/08/2023 8:58 PM [employer] 200 mg QUEtiapine (SEROquel) tablet 400 mg 400 mg, Oral, HS, First dose (after last modification) on 05/09/23 at 2100, Until Discontinued, Indications: Bipolar Mood Disorder Given 05/09/2023 8:30 PM [employer] 400 mg senna (SENOKOT) tablet 2 Tablet [...] 0900, Until Discontinued Given 05/10/2023 7:48 AM [employer] 200 mg Given 05/09/2023 8:02 AM [employer] 200 mg documented in this encounter Active and Recently Administered Medications Times are shown in [employer]. Scheduled Medication Order 05/08/2023 05/09/2023 05/10/2023 aspirin [...] refused) 0746 (Patch Removed - Provider: Jesika Welch RN)0747 (Patch Applied - Provider: Jesika Welch [...] 652 (Given - Provider: Radha Mao RN) 0632 (Given - Provider: Jaqui Head RN) QUEtiapine (SEROquel) tablet 200 mg (CANCELED) 200 mg, Oral, HS, First dose (after last modification) on 05/08/23 at 2100, Until Discontinued 2057 (Given - Provider: Ángel Galicia RN) QUEtiapine (SEROquel) tablet 400 mg 400 mg, Oral, HS, First dose (after last modification) on 05/09/23 at 2100, Until Discontinued, Indications: Bipolar Mood Disorder 2029 (Given - Provider: Anca Finney, LAVERN) thiamine (VITAMIN B-1) tablet 200 mg 200 [...] alcohol withdrawal 0802 (Given - Provider: Jesika Welch RN) diazePAM (VALIUM) tablet 5-10 mg 5-10 [...] mg/mL documented in this encounter Care Teams End Packer Relationship Specialty Start Date End Date Briana Vazquez, [place] [id number] [place] [address] PCP - General Physician Floor Fin[employer] 11/29/19 documented as of this encounter
--- OUTSIDE RECORDS SUMMARY | 2023-07-22 15:06 | XMS_ITS | Encounter Summary ---
Author Name Unknown Organization [facility] Address [address], [place] [address] Care Team Providers Care Web Site Administrator Name Role Phone Briana Vazquez PA-C Primary Care Provider [phone] Reason for Referral * Consult/Transfer Care (Routine) - New Request Specialty Diagnoses / Procedures Referred By Pinky osorio Referred To Contact Diagnoses Methamphetamine use disorder, severe, dependence (HRC) Sedative, hypnotic or anxiolytic use disorder, severe, dependence (HRC) Alcohol use disorder, severe, dependence (HRC) Bossman Franco MD [address] [place] [id number] Referral ID Status Reason Start Date Expiration Date V isits Requested Visits Authorized [id number] New Request 07/20/2023 10/18/2024 1 1 Scheduling Instructions Your clinician has recommended an appointment with [facility]. You may call [phone] to schedule your appointment. We suggest you call your health insurance company about your coverage and benefits for this appointment. Question Answer Appointment Urgency? Non-Urgent Requested Service Addiction/Medicine Use Disorder Patient is aware they will be asked to provide a urine sample for drug screening? Confirmed with patient Patient is aware they are being referred for an Addiction Medicine consult? Confirmed with patient Medications used to treat Substance Use Disorder will require some form of behavioral health assessment. Appropriate treatment will be determined by Addiction Medicine provider. Is the patiet aware this may be a treatment requirement? Confirmed with patient Reason for visit? alcohol and methamphetamine * Procedure/Equipment (Routine) - Incomplete Specialty Diagnoses / Procedures Referred By Pinky osorio Referred To Contact Procedures CT Head WO IV Cont Sarah Aguirre MD [address] [place] [id number] Referral ID Status Reason Start Date Expiration Date V isits Requested Visits Authorized [id number] Incomplete 07/19/2023 10/17/2024 1 1 Reason for Visit * Auth/Cert (Routine) Specialty Diagnoses / Procedures Referred By Pinky osorio Referred To Contact Diagnoses Agitation USAMA (acute kidney injury) (HRC) Intentional overdose, initial encounter (HRC) Tachycardia Hypertension, unspecified type (HRC) AMS USAMA (acute kidney injury) (HRC) Intentional overdose, initial encounter (HRC) Agitation Tachycardia Hypertension, unspecified type (HRC) Referral ID Status Reason Start Date Expiration Date Visits Re quested Visits Authorized [id number] 1 1 Encounter Details Date Type Department Care Team (Latest Contact Info) Description 07/18/2023 8:14 PM CDT - 07/20/2023 3:10 PM CDT Hospital Encounter [facility] [place] [id number] Sánchez Ramírez, [address] [place] [address] Camilo Montero, ARLET [address] [place] [address] Sarah Aguirre MD [address] [place] [address] Jonathan George MD [address] [place], [place] [id number] Brian Crews, [address] [place] [id number] USAMA (acute kidney injury) (HRC) (Primary Dx); Intentional overdose, initial encounter (HRC); Agitation; Tachycardia; Hypertension, unspecified type (HRC); Methamphetamine use disorder, severe, dependence (HRC); Sedative, hypnotic or anxiolytic use disorder, severe, dependence (HRC); Alcohol use disorder, severe, dependence (HRC) Discharge Disposition: Inpatient Psychiatric Facility Social History [...] place to sleep or slept in a chcf (including now)? No 05/07/2023 Sex and Gender Information Value Date Recorded Sex Assigned at Not on file Gender Identity Not on file Sexual Orientation Not on file documented as of this encounter Last Filed Vital Signs Vital Sign Reading Time Taken Comments Blood Pressure 141/76 07/20/2023 1:27 PM CDT Pulse 107 07/20/2023 1:27 PM CDT Temperature 36.7 ??C (98.1 ??F) 07/20/2023 1:27 PM CD T Respiratory Rate 16 07/20/2023 1:27 PM CDT Oxygen Saturation 95% 07/20/2023 1:27 PM CDT Inhaled Oxygen Concentration - - Weight - - Height 185.4 cm (6' 1) 07/18/2023 11:52 PM CDT Body Mass Index - - documented in this encounter Discharge Summaries * Jonathan Georeg MD - 07/20/2023 11:36 AM CDT [facility] Discharge Summary Report Admit Date/Time: 07/18/2023 8:14 PM Discharge Date: 07/20/2023 Service: Hospital Medicine Staff MD: Jonathan George MD Discharge diagnoses: Ingestion of unknown drug Bipolar affective disorder (HRC) USAMA (acute kidney injury) (HRC) Polysubstance abuse (HRC) * No resolved hospital problems. * Procedures: * No surgery found * Pending results: Pending Labs Order Current Status Amphetamines Confirmation, Urine In process Benzodiazepines, Urine, Quantitative In process Issues for Outpatient Followup: Follow-up PCP after discharge from inpatient psychiatry for blood pressure check. Hospital Course: Patient is a 57-year-old gentleman with a history of psychiatric illness who presented to the emergency department with concerns of ingestion. He was found with multiple pill bottles around him. It is unclear what he actually took. Not sure if this is accident were intentional. Over the course of the hospitalization his mental status improved but he continued to have hallucinations. He has uncontrolled psychiatric illness. Patient was seen by Psychiatry who felt he would benefit from treatment at an inpatient psychiatric facility. He had acute kidney injury at the time of admission. He was given some IV fluids and this resolved.He would very mild rhabdomyolysis which improved with IV hydration. He is on some blood pressure medications at baseline. These were restarted at the time of discharge. Follow up with PCP after discharge from inpatient psychiatry. Code Status: Full Discharge Medications: Medication List CHANGE how you take these medications QUEtiapine 100 MG tablet Commonly known as: SEROquel Take 1 Tablet (100 mg) by mouth three times a day. Indications: Manic-Depression What changed: medication strength how much to take when to take this CONTINUE taking these medications acetaminophen 325 MG tablet Commonly known as: TYLENOL Take 2 Tablets (650 mg) by mouth every 6 hours as needed. amLODIPine 5 MG tablet Commonly known as: NORVASC Take 1 Tablet (5 mg) by mouth daily. aspirin 81 MG chewable tablet Chew and swallow 1 Tablet (81 mg) by mouth daily. atorvastatin 40 MG tablet Commonly known as: LIPITOR Take 1 Tablet (40 mg) by mouth every evening. folic acid 1 MG tablet Take 1 Tablet (1 mg) by mouth daily. gabapentin 300 MG capsule Commonly known as: NEURONTIN Take 2 Capsules (600 mg) by mouth three times a day. Indications: Neuropathic Pain lidocaine 5 % ointment Commonly known as: XYLOCAINE Apply topically to affected area(s) three times daily as needed. metoprolol succinate 25 MG 24 hour release tablet Commonly known as: TOPROL XL Take 1 Tablet (25 mg) by mouth daily. omeprazole 20 MG capsule Commonly known as: PriLOSEC Take 1 hour before a meal. STOP taking these medications cyclobenzaprine 10 MG tablet Commonly known as: FLEXERIL Important Diagnostic Studies: Last BMP: Recent Labs 07/20/23 0905 CREATININE 1.10 GLUCOSE 83 BICARB 25 CHLORIDE 104 K 4.1 SODIUM 141 BUN 15 CA 9.7 GFR >60 Last CBC: Recent Labs 07/20/23 0905 WBC 8.8 RBC 5.95* HGB 17.7* HCT 52.6* MCV 88.4 RDW 13.9 PLTS 178 Discharge Orders: Discharge Orders (Non-med) Discharge Condition: Stabilized Patient or Caregiver Aware of Discharge Diagnosis: Yes Admission H&P Valid: Yes All Current Orders Are Valid for 30 Days Agency Standing Orders: Yes Vital Signs Comments: Per facility protocol Weigh Patient Comments: Per facility protocol Give 2-Step Mantoux Test on Admit to SNF Comments: IF NOT previously completed or need to be updated per facility policy. Patient is free of communicable disesases? Yes Question: Patient is free of communicable diseases? Answer: Yes Code Status: Full Code Activity as Tolerated Regular Diet Comments: Stamp Analyst needed? No [2] Pending Results and Other Workup Needing Follow-up Comments: Pending Labs Order Current Status Amphetamines Confirmation, Urine In process Benzodiazepines, Urine, Quantitative In process Total time of discharge: 35 min. I evaluated the patient on the day of discharge, discussed this information with the patient, and answered all questions. The patient was discharged in stable condition. Jonathan George MD CC: Briana Vazquez PA-C documented in this encounter Discharge Instructions * Discharge Instr - Other Orders* Bossman Franco MD - 07/20/2023 1:31 PM CDT Follow-up with Dr. Bossman Franco to help with recovery from alcohol, methamphetamine and sedatives. My team should be reaching out to you to make an appointment. Addiction Medicine in the Pain Management Clinic at the [facility]. [address] [place] [address] option 3 documented in this encounter Medications at Time [...] hour before a meal. 05/10/2023 QUEtiapine (SEROQUEL) 100 MG tabletIndications:Bip olar Mood Disorder Take 1 Tablet (100 mg) by mouth three times a day. Indications: Manic-Depression 07/20/2023 documented as of this encounter Progress Notes * Chon Rajan MD - 07/20/2023 11:22 AM CDT [facility] Toxicology Consult - Follow Up Patient ID: Nicanor Alvarado : 1965 Date of Encounter: 07/20/2023 REASON FOR CONSULT: Altered mental status, concern for ingestion ASSESSMENT AND RECOMMENDATIONS: Patient initially presented with agitation and AMS in the setting of unclear pill ingestion. Treated with IV diazepam with relief of these symptoms, is still restless but more lucid today. Does endorse methamphetamine use prior to arrival, which is the most consistent reason for his presentation. Also endorses daily EtOH use, but no strong withdrawal symptoms reported today. - continue PRN benzos for tachycardia, agitation, and hyperthermia - expect patient to require less benzos throughout the day today - consider switching over to oral Valium as patient appears to be able to tolerate this, and/or theIV Valium shortage persists - medically clear from a methamphetamine intoxication standpoint once vital signs normalized, mentation is clear, and has not needed benzo therapy for at least 6 hours - acute worsening despite current benzo therapy may represent ethanol withdrawal and require more benzos - may require CIWA protocol administration for tachycardia, diaphoresis, hallucinations, etc. Recommendations communicated to primary treatment team at 11:23 AM Patient assessment and plan of care were discussed and agreed upon with attending medical society reporter, Dr. Lorenzana. Thank you for involving the toxicology service in the care of this patient. Should the patient's condition deteriorate or you have any urgent questions, please don't hesitate to contact the on-call fellow listed on Amion. Chon Rajan MD Medical Toxicology Service 07/20/2023 11:23 AM HISTORY AND TOXICOLOGY CLINICAL SUMMARY: Nicanor Alvarado is a 57 y.o. male with bipolar affective disorder, benzodiazapine misuse, polysubstance dependence, psychosis, methamphetamine use who presented to the emergency department with concern for ingestion. The patient was found by EMS in [place] with multiple pill bottles (more than 15) around him. Unsure what the patient took, how many pills, or what the medications were. The patient was unable to provide history due to altered mental status. The patient did endorse taking pills, but not sure howmany. In the ED the patient intermittently answering questions, but not any about medical history. Was hypertensive 162/80 and tachycardic into the 120s in the ED. The patient is also having visual hallucinations. Received about 25mg of IV Valium with Seroquel with symptom improvement. Endorses methamphetamine use and daily ethanol use. --- Date/Time of Exposure: unknown Substances and Amounts Exposed: 1: meth (Unknown Amount) and 2: ethanol (Unknown Amount) Reason For Exposure: Intentional: Abuse Exposure Chronicity : Acute (< 8 Hours) Route of Exposure : Ingestion Disposition: Admitted (Floor) Clinical Effect Duration : > 24 Hours to < 3 Days Clinical Effects: agitation, tachycardia, HTN, hallucinations Decontamination: none Therapies Administered: benzos, antipsychotics --- PHYSICAL EXAMINATION: Vitals: 07/20/23 1000 BP: Pulse: 94 Resp: 17 Temp: Physical Exam Vitals and nursing note reviewed. Exam conducted with a pet care technician present. Constitutional: Appearance: Normal appearance. He is well-developed. He is not diaphoretic. Comments: Restless in bed, moving all 4 extremities every few seconds, but does not appear distressed HENT: Head: Normocephalic and atraumatic. Nose: Nose normal. Mouth/Throat: Mouth: Mucous membranes are moist. Pharynx: Oropharynx is clear. Eyes: General: No scleral icterus. Extraocular Movements: Extraocular movements intact. Pupils: Pupils are equal, round, and reactive to light. Cardiovascular: Rate and Rhythm: Normal rate and regular rhythm. Heart sounds: No murmur heard. No friction rub. No gallop. Pulmonary: Effort: Pulmonary effort is normal. Breath sounds: Normal breath sounds. No wheezing. Abdominal: General: Abdomen is flat. Palpations: Abdomen is soft. Musculoskeletal: General: No swelling, tenderness, deformity or signs of injury. Normal range of motion. Cervical back: Normal range of motion and neck supple. Skin: General: Skin is warm and dry. Capillary Refill: Capillary refill takes less than 2 seconds. Comments: Multiple circular erythematous patches to arms and legs, R forearm with bandage, LLE withlinear scratch around the knee Neurological: General: No focal deficit present. Mental Status: He is alert and oriented to person, place, and time. Mental status is at baseline. EKG: ECG Results ECG 12-Lead STAT (Final result) Collection Time Result Time Ventricular Rate Atrial Rate P-R Interval QRS Duration QT QTc P Blenheim R Blenheim T Blenheim 07/18/23 20:29:15 07/19/23 11:53:11 120 120 144 84 328 463 57 34 171 Final result Narrative: Sinus tachycardia Possible Left atrial enlargement Left ventricular hypertrophy T wave abnormality, consider lateral ischemia Abnormal ECG When compared with ECG of 07-MAY-2023 06:30, no significant change was found Confirmed by Mable Joaquin ([id number]) on 07/19/2023 11:53:09 AM NOTABLE LAB/IMAGING RESULTS: Lab Results Component Value Date/Time SODIUM 141 07/20/2023 09:05 AM K 4.1 07/20/2023 09:05 AM CHLORIDE 104 07/20/2023 09:05 AM BICARB 25 07/20/2023 09:05 AM ANIONGAP 12 07/20/2023 09:05 AM BUN 15 07/20/2023 09:05 AM CREATININE 1.10 07/20/2023 09:05 AM GFR >60 07/20/2023 09:05 AM GLUCOSE 83 07/20/2023 09:05 AM Lab Results Component Value Date/Time BHB 1.78 (H) 07/18/2023 08:44 PM Lab Results Component Value Date/Time WBC 8.8 07/20/2023 09:05 AM RBC 5.95 (H) 07/20/2023 09:05 AM HGB 17.7 (H) 07/20/2023 09:05 AM HCT 52.6 (H) 07/20/2023 09:05 AM MCV 88.4 07/20/2023 09:05 AM PLTS 178 07/20/2023 09:05 AM Lab Results Component Value Date Acetaminophen <3 07/18/2023 Acetaminophen <10.0 09/10/2015 Lab Results Component Value Date Salicylate <5 07/18/2023 Lab Results Component Value Date Ethyl Alcohol <0.01 07/18/2023 Ethyl Alcohol <0.01 05/07/2023 Associated attestation - Meghna Lorenzana MD - 07/20/2023 11:52 AM CDT [facility] Toxicology Attending Supervision Note I performed the crawford elements of history and exam, and agree with fellow/resident's findings and plan of care. I have reviewed and agreed with the PMH, FH, SOC, ROS. Please see note by resident physician. Assessment: The primary encounter diagnosis was USAMA (acute kidney injury) (HRC). Diagnoses of Intentional overdose, initial encounter (HRC), Agitation, Tachycardia, and Hypertension, unspecified type (HRC) were also pertinent to this visit. Plan: Looks a lot better today. Still moving a lot but he says this is normal for him. If able to ambulate and vitals normal and not requiring any more benzos, likely medically clear from meth perspective.He admits to an AUD as well but doesn't appear to be in significant w/d. A total time (excluding separately billable procedures) of 25 minutes was spent concerning the patient on the date of service including Preparing to see the patient, Obtaining and/or reviewing separately obtained history, Performing a medically appropriate examination and/or evaluation, Counseling and educating the patient/family/caregiver, Referring and communicating with other health career development coordinator/teacher , Documenting clinical information in the electronic or other health record, and Independently interpreting results. Meghna Lorenzana MD Emergency Medicine and Toxicology Faculty 07/20/2023, 11:50 AM * Sarah Aguirre MD - 07/19/2023 1:32 PM CDT Brief Note: EVENS called at 1pm for increased agitation and hyperventilation. Arrived to bedside shortly after pt got 2.5 mg Valium. Tom seemed to be having active auditory hallucinations. Crying and moaning as if in fear of something. - additional 2.5 mg Valium - attempt to give scheduled Seroquel after pt comes - increase range of Valium 2.5-5 mg q.4 hours PRN - PRN Zyprexa also ordered by Psychiatry team Billing based on: time- 15 minutes of care time spent at bedside and coordinating with care team during acute event. Sarah Aguirre MD [facility] medicine * Elo Davis RN - 07/19/2023 1:30 PM CDT [facility] Behavioral Emergency Response Team Note Time, Date & Location Date of Call: 07/19/23 Time of Call: 1251 Roles Participating: Clinical Resource Lead (CRL) RN, RN, EVENS RN, Security, Practitioner Time EVENS Arrived: 1251 Time EVENS Left Unit: 1320 Total Time (minutes): 29 Additional Information Report from unit RN?: Yes Situation/Diagnosis: Kennedi/psychosis Interventions Attempted: Medications, Show of support Outcome: Medications administered EVENS Debrief: Yes Additional Narrative: Pt here with ingestion of unknown substance. Hx of polysubstance use, bipolarw/psychotic features. Per BUSINESS PLANNING MANAGER patient suddenly became tearful and inconsolable, started to try to elope. Upon arrival, pt hallucinating, suspicious, fearful. No yelling or violent gestures. Able to sa chelo administer medications and get pt to bed calmly. No restraints needed. Plan in place. * Sarah Aguirre MD - 07/19/2023 7:46 AM CDT Images from the original note were not included. PROGRESS NOTE Patient's name: Nicanor Alvarado Attending: Sarah Aguirre MD Date of Admission: 07/18/2023 Date of Service: 07/19/2023 Assessment & Plan: Nicanor Alvarado is a 57 yo M with bipolar affective disorder, benzodiazapine misuse, polysubstance dependence, psychosis, methamphetamine use who presented to the emergency department with concern for ingestion. On 07/18- pt does NOT have capacity to make own medical or dispo decisions. Endorses auditory hallucinations. Overdose- unclear intentionality, unknown medications Hx of polysubstance use disorder Pt found with multiple pill bottles around him (>15) with unclear ingestion. Received IV Zosyn and was transferred to [facility]. Per admitting provider, when asked about how many pills he took, he stated ???not enough. Unclear if accidental or intentional overdose. Toxidrome most consistent with s ympathomimetic and/or anticholinergic toxicity. Lactate normal. Salicylate level normal. On 07/18, pt tells me he has auditory hallucinations and the voices were why he tooks the pills. - Toxicology consulted - Continue PRN benzodiazepines for agitation. - Physostigmine not recommended at this time for possible anticholinergic toxicity however if symptoms persist or worsen could consider. Concern for possible suicide attempt Auditory hallucinations Bipolar disorder w/hx psychosis ? Hx schizophrenia Unclear baseline mental status. Pt tells me he has auditory hallucinations and the voices were why he tooks the pills. When asked about suicidal ideation, he says I don't want to talk about it. When asked what the voices he is hearing are telling him to do, he says I just want to have a cheeseburger. - Holding all AIR LAUNCH WEAP[employer] TECHNICIAN meds - Psychiatry consulted - 1:1 at bedside, suicide precautions until pt can be evaluated - PT does NOT currently have capacity. If attempts to leave, would place on emergency hold - Attempted to reach pt's Kitty DONG (mother), no answer. Will continue to try to reach - CT head ordered USAMA Unclear etiology. No known hypotension, but has slightly elevated CK so possibly down on ground and/or hypotensive although his psychomotor agitation also explains his mild CK elevation. -IVF at 200ml/hr -Trend renal function closely FEN: regualr Prophy: low risk Lines/Tubes/Tethers: PIV Level of Care: general Dispo: anticipate transfer to in psychiatry within 1-2 days Code Status: Full Accounting Manager Controller and nursing notes reviewed, labs reviewed and pertinent labs for monitoring ordered. Discussed management and clinical plan of care with interdisciplinary team including bedside nurse, charge nurse, SW/CM, pharmacy, PT, and supply chain consultant(s). Patient requires ongoing hospitalization for an acute illness that poses a threat to life. Billing based on: Complexity, high Sarah Aguirre MD Hospitalist, [facility] Pager: See Tu This note was created with voice recognition software and may have inadvertent word substitutions. Subjective: Chart reviewed. Tom is restless and displays repetitive, fidgety movements in bed. When asked why he took all the pills he says, I take a handful of this, handful of that. When asked about SI, he says, I don't want to talk about it. He does endorse auditory hallucinations, but does not want totell me what the voices said. Asks when he can leave. Objective/Physical Exam: Most Recent Vital Signs: Min and Max Vital Signs (24 hours): Temp: 97.6 ??F (36.4 ??C) BP: (!) 112/99 Pulse: (!) 110 Resp: (!) 28 SpO2: 96 % Temp Min: 97.6 ??F (36.4 ??C) Max: 98.9 ??F (37.2 ??C) BP Min: 112/99 Max: 162/80 Pulse Min: 104 Max: 121 Resp Min: 18 Max: 40 SpO2 Min: 96 % Max: 100 % Gen: anxious, restless, appears to be hearing auditory hallucinations HEENT: normocephalic, MMM Resp: clear to auscultation bilaterally, no wheezing or crackles appreciated, comfortable on room air CV: tachycardic, no murmurs appreciated Abd/GI: soft, nondistended, nontender Ext: WWP, no edema in bilateral lower extremities Neuro: alert and oriented to self and place, answers questions but answers do not make sense, moving extremities spontaneously Skin: no rashes or ulcerations on exposed skin surfaces Psych: active psychosis with auditory hallucinations Labs/Imaging: All labs and imaging results personally reviewed, pertinent findings noted below and incorporated into assessment & plan Recent Labs 07/18/23 2044 07/19/23 0045 07/19/23 0547 WBC 19.2* -- 14.1* HGB 19.1* -- 17.1 PLTS 224 -- 178 SODIUM 142 138 138 K 3.8 5.1 3.3* BUN 43* 40* 34* CREATININE 3.40* 2.60* 2.11* ANIONGAP 18* [address] head pending * Laurita Lindo RN - 07/18/2023 9:34 PM CDT Pt repeatedly masturbating in room and needing to be redirected documented in this encounter Consult Notes * Bossman Franco MD - 07/20/2023 12:29 PM CDTAssociated Order(s): ADDICTION MEDICINE CONSULT Addiction Medicine Consult Date of Service: 07/20/2023 Assessment and Plan: 57 yo male c severe methamphetamine/alcohol/BZD use disorder who presents c intentional ingestion. Patient admitted last month with syncope and DUI. No insight. Agrees to treatment but only because of his recent DUI. (Which he blames his son for) States he has no real desire to be sober. Filled with a lot of self pity. I challenged patient to get into treatment, try naltrexone and follow-up in my clinic. Discussed the benefit of 90 days of sobriety with decreased cravings and improved mood. Discussed high likelihood of /imprisonment within the next year if unable to stay sober given his recent consequences. 1) Alcohol Use Disorder Severe -Recommendations: Treatment, naltrexone and follow-up -Withdrawal Management: Monitor, ,looks good -Educated on nature of Addiction -Given my f/u information in hopes of f/u as outpt -Discussed benefit of AA/NA meetings. -SW: Needs info on how to get into tx. 2) Methamphetamine/BZD Use Disorder -challenged him to follow through with treatment. CC/HPI: Nicanor Alvarado is a 57 y.o. with a PMH significant for alcohol/methamphetamine/benzodiazepine use disorder, bipolar disorder who was admitted on 07/18/2023 8:14 PM for intentional ingestion with suicidal ideation. Patient states he has no real desire to be sober. Agrees to treatment only because he recently got a DUI. Has been to 3 inpatient 3 outpatient treatments. Patient filled the self pity. Gives a lot of excuses as to why he drinks. Has a family history of addiction. States he lost a son recently. Patient arrested last month for DUI. The addiction consult team has been asked to see this patient regarding alcohol, methamphetamine and benzodiazepine use by Jonathan George MD. Other drug or alcohol use: Using alcohol, methamphetamine and benzodiazepines. CD Treatment history: has been to 3 inpatient and 3 outpatient treatments ROS: denies any cravings Readiness for Change: States he has no real desire to be sober. Problem List: Patient Active Problem List Diagnosis Hypertension (HRC) Hyperlipidemia with target LDL less than 130 (HRC) Genital herpes (HRC) Generalized headaches Chronic low back pain GERD (gastroesophageal reflux disease) Migraine headache Anxiety disorder (HRC) Bipolar affective disorder (HRC) Alcohol-induced cognitive dysfunction (HRC) Alcohol use disorder Psychosis (HRC) Erectile dysfunction Methamphetamine use (HRC) Benzodiazepine misuse Syncope S/P lumbar spinal fusion Troponin level elevated USAMA (acute kidney injury) (HRC) Substance induced mood disorder (HRC) Polysubstance dependence (HRC) Encephalopathy Ingestion of unknown drug Polysubstance abuse (HRC) Social History: Social History Socioeconomic History Marital status: Single Spouse name: Not on file Number of children: 2 Years of education: Not on file Highest education level: Not on file Occupational History 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 Tobacco Use Smoking status: Former Current packs/day: [...] Resource Strain: High Risk (03/08/2021) [facility] Resource Strain Difficulty of Paying Living [...] Unstable Housing in the Last Year: No Living Situation: Lives with his mother on a farm Work Hx: 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 Current Facility-Administered Medications Medication Dose Route Frequency Provider Last Rate Last Admin benzocaine-menthol (Chloraseptic) lozenge 1 Lozenge 1 Lozenge Oral Q2H PRN Camilo Montero PA-C senna (SENOKOT) tablet 2 Tablet 2 Tablet Oral BID PRN Camilo Montero PA-C And polyethylene glycol (MIRALAX) oral powder 17 g 17 g Oral DAILY PRN Camilo Montero PA-C And bisacodyl (DULCOLAX) rectal suppository 10 mg 10 mg Rectal DAILY PRN Camilo Montero PA-C calcium carbonate (TUMS) chewable tablet 1,000 mg 1,000 mg Oral Q4H PRN Camilo Montero PA-C carboxymethylcellulose PF (REFRESHPLUS) 0.5 % eye drops 1 Drop 1 Drop Both Eyes Q1H PRN Camilo Montero PA-C diazePAM (VALIUM) injection 2.5-5 mg 2.5-5 mg Intravenous Q4H PRN Sarah Aguirre MD 5 mg at 07/20/23 0438 gabapentin (NEURONTIN) capsule 300 mg 300 mg Oral TID Genet Treadwell PA-C 300 mg at 07/20/23 0939 lactated ringers infusion Intravenous Continuous Camilo Montero PA-C 200 mL/hr at 07/19/23 0922New Bag at 07/19/23 0922 melatonin tablet 6 mg 6 mg Oral At bedtime PRN Camilo Montero PA-C nystatin (MYCOSTATIN) 360070 UNIT/GM topical powder Topical BID PRN Camilo Montero PA-C OLANZapine (ZyPREXA) tablet 5 mg 5 mg Oral TID PRN Genet Treadwell PA-C 5 mg at 07/20/23 0029 Or OLANZapine (ZyPREXA) 10 mg in sterile water 2 mL injection 10 mg Intravenous TID PRN Genet Treadwell PA-C ondansetron (ZOFRAN) injection 4 mg 4 mg Intravenous Q6H PRN Camilo Montero PA-C ondansetron (ZOFRAN-ODT) disintegrating tablet 4 mg 4 mg Oral Q6H PRN Camilo Montero PA-C QUEtiapine (SEROquel) tablet 100 mg 100 mg Oral TID Murali Josue PA-C 100 mg at 07/20/23 1025 QUEtiapine (SEROquel) tablet 50 mg 50 mg Oral Q4H PRN Genet Treadwell PA-C sodium chloride (OCEAN) 0.65 % nasal solution 1 [place] Both Nostrils Q2H PRN Madison Montero PA-C thiamine (VITAMIN B-1) tablet 100 mg 100 mg Oral Daily Jonathan George MD 100 mg at 07/20/23 0939 No Known Allergies BP (!) 155/103 (BP Cuff Size: Regular - Long) Pulse 94 Temp 97.9 ??F (36.6 ??C) (Oral) Resp 17 Ht 6' 1 (1.854 m) SpO2 96% BMI 26.87 kg/m?? Gen: NAD Head: ATNC Eyes: White sclera Neck: trachea midline, no scarring Pulm: breathing comfortably Neuro: grossly intact Psych: Appearance:Alert Attitude: Neutral Mood: Depressed Affect: Blunted Speech: Within normal limits Thought Process: Clear Thought Content: Lacks insight Insight and Judgement: poor Labs: Last CBC w/differential result: Lab Results Component Value Date/Time WBC 8.8 07/20/2023 09:05 AM RBC 5.95 (H) 07/20/2023 09:05 AM HGB 17.7 (H) 07/20/2023 09:05 AM HCT 52.6 (H) 07/20/2023 09:05 AM MCV 88.4 07/20/2023 09:05 AM MCH 29.7 07/20/2023 09:05 AM MCHC 33.7 07/20/2023 09:05 AM PLTS 178 07/20/2023 09:05 AM RDW 13.9 07/20/2023 09:05 AM PMN 2.3 07/31/2014 12:49 PM LYMA 1.2 07/31/2014 12:49 PM MONOA 0.6 07/31/2014 12:49 PM EOSA 0.1 07/31/2014 12:49 PM BASA 0.0 07/31/2014 12:49 PM Lab Results Component Value Date/Time AST 87 (H) 07/20/2023 09:05 AM alt, alkphos, bilirubintot,bilirubindir Lab Results Component Value Date/Time BUN 15 07/20/2023 09:05 AM SODIUM 141 07/20/2023 09:05 AM K 4.1 07/20/2023 09:05 AM CHLORIDE 104 07/20/2023 09:05 AM GLUCOSE 83 07/20/2023 09:05 AM CREATININE 1.10 07/20/2023 09:05 AM GFR >60 07/20/2023 09:05 AM CA 9.7 07/20/2023 09:05 AM ANIONGAP 12 07/20/2023 09:05 AM INR Date Value Ref Range Status 05/07/2023 1.1 0.9 - 1.1 Final Last Urine Drugscreen: Lab Results Component Value Date/Time SEVEN Presumptive Positive (A) 07/19/2023 06:26 PM THCM Not Detected 07/19/2023 06:26 PM BARBS Not Detected 07/19/2023 06:26 PM COCM Not Detected 07/19/2023 06:26 PM OPIAT Not Detected 07/19/2023 06:26 PM PCP Not Detected 07/19/2023 06:26 PM AMPHE Presumptive Positive (A) 07/19/2023 06:26 PM Bossman Franco MD 07/20/2023, 12:29 PM * Murali Josue PA-C - 07/20/2023 8:50 AM CDT [facility] Department of Psychiatry Follow-Up Consultation Note Attending MD: Jonathan George MD Date of this exam: 07/20/2023 Assessment 57 y.o. with history of psychosis and [...] paranoid and having auditory and visual hallucinations. 07/19/2023: Not ready for psychiatry yet due to acute renal failure and rhabdo. Will assure that numbers are trending in the right direction prior to transferring to psychiatry. Most recently seen May of 2023. Psych CL will continue to follow 07/20/2023: Alludes to ongoing paranoia, more organized compared to notes from yesterday. Agreeable to restarting psych meds. Mother reports erratic behavior recently, tore apart his room over the weekend. Diagnoses Encephalopathy Psychosis Hx of Bipolar Disorder vs schizaffective disorder vs paranoid personality disorder Likely polysubstance use disorder (hx of alcohol, benzos/xanax,meth) Hx of PTSD Recommendations Safety and Legal Status: Orders Placed This Encounter Procedures Legal Status: Voluntary Per Decision Maker: Next of Kin - This patient lacks the capacity to make medical decisions at this time. This patient cannot leaveAMA. Safety: 1:1 for agitation. Medications and Labs: Delirium precautions ordered Increase quetiapine to 100mg TID, correctional captain dose was 800mg qHS. Zyprexa 5 PO mg vs 10 mg IV - TID PRN if needed UDS+ for amphetamines Will order high dosed Thiamine If there are concerns about alcohol or benzo withdrawal, would recommend phenobarbital. Will order addiction consult. Gabapentin 300 mg TID ordered for withdrawal symptoms Collateral and Disposition/Follow-up: -Inpatient psychiatry for disposition Psychiatry will continue to follow Subjective Patient mostly focused on pain, intermittently oriented and tracking. Pt does not want to talk about circumstances at home, recognizes I have schizophrenia, and if I'm not drinking and not taking mymedications, I don't always know what's real or not. Pt states he takes seroquel 600 TID, reviewedthat seemed like too much, agreeable to 100 TID for now. Contacted pt's mother Catalina: She reports pt drinks 1 drink/night, but his ex- girlfriend visited a few days ago and they think she uses. Pt did not eat anything Fri or Sat. Had been more erratic lately, seeing people elsewhere in the house, talking to people, and what led to her calling the ambulance was patient had been crawling around on his belly or back that morning and had trashed his bedroom. She does not feel that patient is safe to be at home at this time. Nursing Report: [facility] called. pt hyperventilating with increased agitation. PRN administered~Valium.Pt in panic state w/increased agitation. prn administered- >valium. Thank you! - 1830: Pt saying just put a gun to my head and kill me. Tearful, agitated. Repetitively asking if son is still alive. PRN valium given per MAY x1- 1900: Pt talking on phone to son and mother. RN spoke to pt's mother for update - mother's phone number changed in chart. - 1999: Pt resting calmly in room with eyes closed. A/O x2, disorientated to time and situation. Tele: SR/ST. HR: 80-110s. SBP: 120-160s. Denies hallucinations, follows commands. Afebrile, face and chest are flushed, and had some episodes of diaphoresis. Mood labile and easily agitated. Restless thr oughout the night. PRN valilum per MAY x2. 7406 TShalom Steven. - Gave zyprexa PRN around an hour ago. Per may - pt responded well. Less agitated and sleeping. Mental Status Exam BP (!) 155/103 (BP Cuff Size: Regular - Long) Pulse 92 Temp 97.9 ??F (36.6 ??C) (Oral) Resp 18 Ht 6' 1 (1.854 m) SpO2 99% BMI 26.87 kg/m?? Appearance: alert Grooming: disheveled Demeanor: demanding but redirectable Behavior: normal Gait/Station: seated Muscle Strength and Tone: No apparent abnormalities. Speech: appropriate rate and volume Language: intact Thought Processes: circumstantial Thought Content: paranoia about family, not responding to internal stimuli, mild disorganized, denies SI Associations: loose Mood: irritable Affect: mood congruent Orientation to Time: Yes Orientation to Place: Yes Orientation to Person: Yes Fund of Knowledge: average Recent Memory: pt unwilling to discuss Remote Memory: intact Attention Span: intact Concentration:intact Insight: limited Judgment: poor Review of Systems Refer to note dated 07/20/2023 written by Jonathan George MD . Medication Side Effects: no complaints Current Inpatient meds Current Facility-Administered Medications Medication Dose Route Frequency benzocaine-menthol (Chloraseptic) lozenge 1 Lozenge 1 Lozenge Oral Q2H PRN senna (SENOKOT) tablet 2 Tablet 2 Tablet Oral BID PRN And polyethylene glycol (MIRALAX) oral powder 17 g 17 g Oral DAILY PRN And bisacodyl (DULCOLAX) rectal suppository 10 mg 10 mg Rectal DAILY PRN calcium carbonate (TUMS) chewable tablet 1,000 mg 1,000 mg Oral Q4H PRN carboxymethylcellulose PF (REFRESHPLUS) 0.5 % eye drops 1 Drop 1 Drop Both Eyes Q1H PRN diazePAM (VALIUM) injection 2.5-5 mg 2.5-5 mg Intravenous Q4H PRN gabapentin (NEURONTIN) capsule 300 mg 300 mg Oral TID lactated ringers infusion Intravenous Continuous melatonin tablet 6 mg 6 mg Oral At bedtime PRN nystatin (MYCOSTATIN) 378600 UNIT/GM topical powder Topical BID PRN OLANZapine (ZyPREXA) tablet 5 mg 5 mg Oral TID PRN Or OLANZapine (ZyPREXA) 10 mg in sterile water 2 mL injection 10 mg Intravenous TID PRN ondansetron (ZOFRAN) injection 4 mg 4 mg Intravenous Q6H PRN ondansetron (ZOFRAN-ODT) disintegrating tablet 4 mg 4 mg Oral Q6H PRN QUEtiapine (SEROquel) tablet 100 mg 100 mg Oral At Bedtime QUEtiapine (SEROquel) tablet 50 mg 50 mg Oral Q4H PRN sodium chloride (OCEAN) 0.65 % nasal solution 1 [place] 1 [place] Both Nostrils Q2H PRN thiamine (VITAMIN B-1) 400 mg in sodium chloride 0.9 % 50 mL IVPB 400 mg Intravenous Q8H Followed by [START ON 07/22/2023] thiamine (VITAMIN B-1) 200 mg in sodium chloride 0.9 % 50 mL IVPB 200 mg Intravenous Q24H Followed by [START ON 07/27/2023] thiamine (VITAMIN B-1) tablet 100 mg 100 mg Oral Daily Risk Assessment Risk to self: elevated acutely due to disorganization in the hospital as well as chronically. Risk to others: elevated acutely due to disorganization in the hospital as well as chronically. Ability to care for self and basic needs: Independent Protective factors include : no longer intoxicated Suicide Risk: High Today the patient reports no SI. In addition, they have notable risk factors for self-harm, including poor coping, recent substance use, ongoing psychosis, male gender. Protective factors include history of seeking help when needed and committment to family Additional steps taken to minimize risk include medication changes made to target psychosis MDM: High Report Completed by: Murali Josue PA-C * Genet Treadwell PA-C - 07/19/2023 8:00 AM CDTAssociated Order(s): PSYCHIATRY CONSULT [facility] Department of Psychiatry Consult Note Attending MD: Sarah Aguirre MD Date of this exam: 07/19/2023 Presenting problem: The psychiatric consultation service was asked to see this patient by Sarah Aguirre MD for concern for ingestion, suicidal thinking and psychosis. Assessment 57 y.o. with history of psychosis and [...] psychiatry. Most recently seen May of 2023. Psych CL will continue to follow. Diagnoses Encephalopathy Psychosis Hx of Bipolar Disorder vs schizaffective disorder vs paranoid personality disorder Likely polysubstance use disorder (hx of alcohol, benzos/xanax,meth) Hx of PTSD Recommendations Safety and Legal Status: - This patient lacks the capacity to make medical decisions at this time. This patient cannot leaveAMA. - Social Work / Sales Performance Analyst and primary team to work on finding next of kin contact (mom?- Catalina)to assist in making medical decisions for the patient. - If next of kin cannot be found, will use Decision-Making Process for Patients without a Surrogate Policy [id number] - The Psych Consult team will enter the Voluntary per next of kin legal order. - A 72 hour hold is not necessary as patient does not have capacity to make decisions about leaving. Safety: 1:1 for agitation. Medications and Labs: Delirium precautions ordered Seroquel ordered 100 mg QHS and 50 mg q4PRN - titrate based on need. Zyprexa 5 PO mg vs 10 mg IV - TID PRN if needed UDS ordered - needs to be collected yet Will order high dosed Thiamine If there are concerns about alcohol or benzo withdrawal, would recommend phenobarbital. Will order addiction consult. Gabapentin 300 mg TID ordered for withdrawal symptoms Collateral and Disposition/Follow-up: Attempted to reach out to Catalina allen 07/18- line is busy/perhaps disconnected Psychiatry will continue to follow Chief Complaint My niece has been giving my brother blow jobs. History of Present Illness 57 y.o. male with hx of HTN, bipolar d/o with psychosis, polysubstance abuse who presented to the ED today from the [place] ED for evaluation of altered mental status and possible ingestion. Pt isunable to provide any history due to his altered mental status HPI taken from ED notes and signout. Per ED note: Patient came from home, was picked up by [place] [facility], multiple pill bottles surrounding the patient, more than 15, unsure of what the patient took, patient was altered and did not provide much history. Had a low-grade temperature of 99?? with a white count of 20, given a dose of Zosyn. Transferred here to [facility] for further evaluation. On my discussion with [...] ropinirole were filled within the last month. Source of information: patient and portions of the medical record Psychiatric Review of Systems Level of Cooperation: unable to cooperate due to medications The patient has mood symptoms (depression, kennedi) including: mood is elevated, minimal sleep recently, increased energy This patient has psychotic symptoms including: Hallucinations: Current problem/s - auditory and visual and Delusions: Others: erotomanic The patient has symptoms of anxiety including: history of trauma The patient has impulse control problems including: None Past Psychiatric History Diagnosis: Reports remote diagnosis of bipolar disorder, schizoaffective disorder Age of onset: 20's Previous admissions: 2016 had two admissions for unspecified psychosis in setting of significant bath salts use. 2023 had admission to [facility] in May. Current Psychiatrist: None. Ángel Massey is prescribing Therapist: None ECT (#, date, methods): None Suicide attempts (#, date, methods): None Previous Psychiatric Meds (type, dose, duration, response): Seroquel, Zyprexa, Depakote, Zoloft, Trazodone, gabapentin Chemical Use Last Use: Unclear/Unknown Substance of Choice: Alcohol, Amphetamines, benzodiazepines, and Marijuana CD treatment History: At least three times after DWIs. First use of Chemical: Likely in 20s First time problem: Unknown Detox Admits: Not in chart DWI's: Yes multiple Longest period of abstinence: Reports no significant period of abstinence Caffeine - estimated amount per day: Unknown Tobacco Use: Unknown Family History Psychiatric: Son- depression Chemical Dependency: Alcohol in son Suicide: Son - by suicide in 2016 Hereditary Major Medical: Father had dementia, 2016 Family History Problem Relation Age of Onset Hypertension Father Hypertension Brother Migraines Brother Depression Son Suicide Son Alcohol Abuse Son Drug Abuse Son Social History Family of Origin: Grew up in a denominational family in [place]. Had an older brother who in a [...] Marital Status: Single, has been in previous supervisor intermediates relationship for 7 years and had 2 kids. Children (ages, sex): 2 children, one in 2016 by suicide. Reason for end of marriage: Unclear Living situation: Lives with mother currently. Work History (longest job, last job, current support): Has worked at [employer] in past. Legal Problems: Yes multiple DWIs. Also gross misdemeanor charge of child abuse. History: Unknown Access to Guns: Unknown Medical History Primary Care Provider:Briana Vazquez PA-C Past medical history reviewed. Seizure History: too disorganized to comment TBI History: too disorganized to comment Past Medical History: Diagnosis Date Arthritis BP [...] every evening. cyclobenzaprine (FLEXERIL) 10 MG tablet Take 1 Tablet (10 mg) by mouth three times a day as needed.Indications: Muscle Spasm 60 Tablet 0 folic acid 1 MG tablet Take 1 [...] mg) by mouth daily at bedtime. Indications:Manic-Depression Current Inpatient Medications Current Facility-Administered Medications Medication Dose Route Frequency benzocaine-menthol (Chloraseptic) lozenge 1 Lozenge 1 Lozenge Oral Q2H PRN senna (SENOKOT) tablet 2 Tablet 2 Tablet Oral BID PRN And polyethylene glycol (MIRALAX) oral powder 17 g 17 g Oral DAILY PRN And bisacodyl (DULCOLAX) rectal suppository 10 mg 10 mg Rectal DAILY PRN calcium carbonate (TUMS) chewable tablet 1,000 mg 1,000 mg Oral Q4H PRN carboxymethylcellulose PF (REFRESHPLUS) 0.5 % eye drops 1 Drop 1 Drop Both Eyes Q1H PRN diazePAM (VALIUM) injection 2.5 mg 2.5 mg Intravenous Q4H PRN lactated ringers infusion Intravenous Continuous melatonin tablet 6 mg 6 mg Oral At bedtime PRN nystatin (MYCOSTATIN) 663368 UNIT/GM topical powder Topical BID PRN OLANZapine (ZyPREXA) tablet 5 mg 5 mg Oral ONCE PRN Or OLANZapine (ZyPREXA) 10 mg in sterile water 2 mL injection 10 mg Intramuscular ONCE PRN ondansetron (ZOFRAN) injection 4 mg 4 mg Intravenous Q6H PRN ondansetron (ZOFRAN-ODT) disintegrating tablet 4 mg 4 mg Oral Q6H PRN potassium bicarbonate-citric acid (EFFER-K) effervescent tablet 20 mEq 20 mEq Oral Once sodium chloride (OCEAN) 0.65 % nasal solution 1 [place] 1 [place] Both Nostrils Q2H PRN Mental Status Exam BP (!) 112/99 (BP Cuff Size: Regular - Long) Pulse (!) 110 Temp 97.6 ??F (36.4 ??C) (Axillary) Resp (!) 28 Ht 6' 1 (1.854 m) SpO2 96% BMI 26.87 kg/m?? Appearance: poor eye contact, only wearing green hospital shorts Gait/Station: seated Muscle Strength and Tone: No apparent abnormalities. Grooming: disheveled Demeanor: resistant Behavior: restless, frequently moving around Speech: whispers at times, raises his voice at others Language: intact Thought Processes: disorganized Associations: loose Thought Content: delusions: erotomanic, + AH/VH Mood: excitable, irritable Affect: labile Orientation to Time: No Orientation to Place: No Orientation to Person: Yes Recent Memory: limited Remote Memory: fair Insight: poor Judgment: poor Attention Span: limited Concentration: limited Fund of Knowledge:below average Review of Systems Refer to note dated 07/19/2023 written by attending team. Labs I have reviewed pertinent labs. [place] [employer]GICAL [employer]ESSING MAKER: Gabapentin and Testosterone and Oxycodone in the last year Decisional Capacity Patient does not have capacity to make his own medical decisions Risk Assessment Risk to self: elevated acutely due to disorganization in the hospital as well as chronically. Risk to others: elevated acutely due to disorganization in the hospital as well as chronically. Ability to care for self and basic needs: Independent Protective factors include : no longer intoxicated MDM: High This document completed by: Genet Treadwell PA-C Patient discussed with collaborating physician, Dr. Cárdenas --- End of Report --- * Meghna Lorenzana MD - 07/18/2023 9:34 PM CDTAssociated Order(s): TOXICOLOGY CONSULT [facility] Toxicology Consult - Initial Patient ID: Nicanor Alvarado : 1965 Date of Encounter: 07/18/2023 REASON FOR CONSULT: Altered mental status, concern for ingestion ASSESSMENT AND RECOMMENDATIONS: Patient is a 57 yo M with bipolar affective disorder, benzodiazapine misuse, polysubstance dependence, psychosis, methamphetamine use who presented to the emergency department with concern for ingestion. The patient was found by EMS in [place] with multiple pill bottles (more than 15) around him. Unsure what the patient took, how many pills, or what the medications were. The patient was unableto provide history due to altered mental status. The patient did endorse taking pills, but not surehow many. In the ED the patient intermittently answering questions, but not any about medical history. Was hypertensive and tachycardic into the 120s in the ED. The patient is also having visual hallu cinations. - Agree with benzodiazepines for concern of sympathomimetic toxicity. On my eval this am, he was constantly moving and looked like he could use more benzos. Recommendations communicated to primary treatment team at 9:34 PM HISTORY AND TOXICOLOGY CLINICAL SUMMARY: Nicanor Alvarado is a 57 y.o. male who presents after concern for ingestion. Date/Time of Exposure: unknown Substances and Amounts Exposed: 1: unknown (Unknown Amount) Reason For Exposure: Other: Other: unsure Exposure Chronicity : Acute (< 8 Hours) Route of Exposure : Ingestion Acetaminophen Level: pending ASA Level: pending Disposition : Pending Clinical Effect Duration : Unknown Therapies Given & Recommended: Therapies - Common: Benzodiazepines (Recommended/Given) PHYSICAL EXAMINATION: Vitals: 07/18/232021 BP: (!) 162/80 Pulse: (!) 121 Resp: 20 Temp: 98.5 ??F (36.9 ??C) Physical Exam GENERAL APPEARANCE: moving around in bed. Opens eyes to voice and talks with me. SKIN: diaphoretic HEENT: no nystagmus. Pupils midrange and equal LUNGS: no respiratory distress. CARDIOVASCULAR: tachycardic MUSCULOSKELETAL: Muscle tone normal. EXTREMITIES: No cyanosis, clubbing or edema. NEUROLOGIC: Awakes to voice. Encephalopathic. No real conversation, but I can understand what he says. He is constantly moving in bed. Psych: normal mood. Normal affect. NOTABLE LAB/IMAGING RESULTS: WBC: 19.2 Hgb: 19.1 APAP: pending Alcohol: pending BMP: pending Salicylate: pending EKG: Rate: 120 QRS: 84 Qtc: 463 documented in this encounter OR Notes * H&P - Camilo Montero PA-C - 07/18/2023 10:36 PM CDT Images from the original note were not included. [facility] Medicine History & Physical Patient name: Nicanor Alvarado : 1965 Date of Admission: 07/18/2023 8:14 PM Date of Service: 07/18/2023 Attending/Staff: Camilo Montero PA-C Chief Complaint Altered mental status History of Present Illness 57 y.o. male with hx of HTN, bipolar d/o with psychosis, polysubstance abuse who presented to the ED today from the [place] [facility] for evaluation of altered mental status and possible ingestion. Pt isunable to provide any history due to his altered mental status HPI taken from ED notes and signout. Per ED note: Patient came from home, was picked up by [place] [facility], multiple pill bottles surrounding the patient, more than 15, unsure of what the patient took, patient was altered and did not provide much history. Had a low-grade temperature of 99?? with a white count of 20, given a dose of Zosyn. Transferred here to [facility] for further evaluation. On my discussion with [...] Does not respond to feeling suicidal currently. Afebrile and hemodynamically stable on arrival to the ED. tachycardic to the 120s and very diaphoretic. Blood pressures in the 160s systolic. O2 sats in the upper 90s on room air. White blood count elevated at 19.2. Hemoglobin 19.1. Creatinine 3.4, baseline appears to be around 1.3-1.4. CO2 of 18 with an anion gap of 18. Sodium and potassium were normal. Tylenol and salicylate levels were undetectable. Lactate normal. Toxicology was consulted given concerns for sympathomimetic and/or anticholinergic toxicity. Recommendations included as- needed benzodiazepines for agitation. Physostigmine not recommended at this time for possible anticholinergic toxicity however if symptoms persist or worsencould consider. Review of Systems Complete ROS negative unless otherwise noted above in HPI Past Medical History Patient Active Problem List Diagnosis Hypertension (HRC) Hyperlipidemia with target LDL less than 130 (HRC) Genital herpes (HRC) Generalized headaches Chronic low back pain GERD (gastroesophageal reflux disease) Migraine headache Anxiety disorder (HRC) Bipolar affective disorder (HRC) Alcohol-induced cognitive dysfunction (HRC) Alcohol use disorder Psychosis (HRC) Erectile dysfunction Methamphetamine use (HRC) Benzodiazepine misuse Syncope S/P lumbar spinal fusion Troponin level elevated USAMA (acute kidney injury) (HRC) Substance induced mood disorder (HRC) Polysubstance dependence (HRC) Encephalopathy Ingestion of unknown drug Past Surgical History Past Surgical History: Procedure Laterality Date LAMINOT W/ DECOMP; 1 INTERSPACE LUM 1999 x 2 L4-5 x 2 LAMINOT W/ DECOMP; 1 INTERSPACE LUM 2000 L5-S1 SPINE SURGERY PROCEDURE UNLISTED 2000 L4-S1 Fusion Family History Family History Problem Relation Age of Onset Hypertension Father Hypertension Brother Migraines Brother Depression Son Suicide Son Alcohol Abuse Son Drug Abuse Son Social History Social History Socioeconomic History Marital status: Single Spouse name: Not on file Number of children: 2 Years of education: Not on file Highest education level: Not on file Occupational History 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 Allergies Patient has no known allergies. Physical Exam Vitals: Patient Vitals for the past 8 hrs: BP Temp Temp src Pulse Resp SpO2 07/18/232021 (!) 162/80 98.5 ??F (36.9 ??C) Axillary (!) 121 20 96 % General: Alert, diaphoretic, and moderately agitated but in no acute distress. HEENT: Head NC/AT, No nasal discharge present, Oropharynx is non-erythematous, oral mucosa is moist. Lungs: CTA bilaterally, no wheezing Heart: Regular, tachycardic, no murmurs Abd: soft, non-tender, non-distended. No rebound or guarding Neuro: Alert and oriented to self only CN II-XII are grossly intact. No focal neuro deficits. Moderate psychomotor agitation noted Musculoskeltal: No swelling, ecchymosis or deformity present. Strength is 5/5 in the upper and lower extremities bilaterally. Skin: No rashes noted. Labs/Imaging/Other Labs: Recent Labs 07/18/232043 SODIUM 142 K 3.8 CHLORIDE 106 BUN 43* CREATININE 3.40* GLUCOSE 89 Recent Labs 07/18/232043 WBC 19.2* HGB 19.1* HCT 57.5* Imaging: None Assessment/Plan 57 y.o. male admitted for management of Ingestion of unknown drug 1. Ingestion of unknown drug: Toxidrome most consistent with sympathomimetic and/or anticholinergictoxicity. Based on my exam, suspicion is highest for anticholinergic toxicity. Unclear why he has an elevated anion gap acidosis. Electrolytes and glucose are normal so doubt starvation ketosis. Lactate normal. Salicylate level normal. -PRN ativan for agitation overnight -Repeat BMP now and again in am to closely follow renal function. 2. USAMA (acute kidney injury): Unclear etiology. No known hypotension, but has slightly elevated CK so possibly down on ground and/or hypotensive although his psychomotor agitation also explains his mild CK elevation. -IVF at 200ml/hr overnight -Trend renal function closely as above 3. Bipolar affective disorder: Hx of psychosis and polysubstance abuse as well so difficult to knowwhat his baseline functioning/mental status is. Given his altered mental status and ingestion will hold all of his medications until his altered mental status clears or medications can be verified. Possibly endorsing some suicidality in the ED, but very difficult to tell how significant it is due to his altered mental status and his evasive answers to questions. -1:1 for safety FEN: Regular PPx: Ambulate Level of Care: Inpt, Progressive Code Status/Goals of Care: Full I anticipate that the patient's hospitalization will span at least the next two midnights, and theyshould be admitted as an inpatient because of a higher risk of an adverse outcome due to altered mental status with ingestion of unknown substances. I estimate the length of stay to be 2-5 nights. Billing based on: Complexity Complexity: MDM Level: High Camilo Montero PA-C [facility] Medicine, [facility] documented in this encounter ED Notes * Richelle Tadeo - 07/18/2023 11:14 PM CDT This ERT assuming watch. PT is restless and diaphoretic. * Renetta Lanza - 07/18/2023 9:26 PM CDT Patient continues to put hand down pants and taking out genitals. Able to be redirected at this time * Irvin Heller MD - 07/18/2023 8:37 PM CDT [facility] Emergency Medicine Visit Note Chief Complaint: No chief complaint on file. HPI Nicanor Alvarado is a 57 y.o. male w/ known hypertension, GERD, anxiety disorder, bipolar affective disorder, methamphetamine use, benzo misuse, polysubstance dependence, psychosis, who presents to the Emergency Department with ingestion concern. Patient sent in from [facility] for concerns for ingestion/infection. Patient came from home, was picked up by [place] [facility], multiple pill bottles surrounding the patient, more than 15, unsure of what the patient took, patient was altered and did not provide much history. Had a low-grade temperature of 99?? with a white count of 20, givena dose of Zosyn. Transferred here to [facility] for further evaluation. On my discussion with [...] Does not respond to feeling suicidal currently. Triage Vitals [07/18/232021] Temp 98.5 ??F (36.9 ??C) Temp src Axillary Pulse (!) 121 Resp 20 BP (!) 162/80 SpO2 96 % Physical Exam Constitutional exam: Alert, restless, appears stated age. HENT exam: Atraumatic. Normal tympanic membranes and clear posterior oropharynx. Eyes: Pupils symmetric and reactive. No nystagmus. Neck exam: Able to fully range. No midline tenderness to palpation. CV exam: Tachycardic, regular rhythm, no murmur. Pulmonary exam: Non-labored respirations, clear to auscultation bilaterally. Abdominal exam: Soft, non-tender. MSK: The extremities and spine were ranged and palpated and without any deformities or tenderness to palpation. Neuro exam: Cranial nerves, strength and sensation grossly intact. No clonus. Hyporeflexic patellartendon reflexes. Skin exam: Warm, some diaphoresis. Patient does appear red Psychiatric exam: Patient responding to suicidal concerns. Does endorse visual hallucinations. Denies auditory hallucinations. MDM: Tom is a 57 y.o. male presenting with an ingestion concern versus infection from outside hospital. History and physical examination as above. Vital signs tachycardic, hypertensive. Patient minimally diaphoretic, no rigidity of extremities, patellar tendon hyperreflexic. No clonus. Appears to be somewhat more anticholinergic versus sympathomimetic appearing. Unsure of what pills he specifically took, patient was prescribed Tylenol, amlodipine, aspirin, atorvastatin, Flexeril, folic acid, gabapentin, metoprolol, omeprazole, quetiapine per a quick med review. Initial evaluation at outside hospital concern for infection, only notable white count of 20 in addition to a low-grade temperatureof 99?? F. was given a dose of Zosyn there. I do not believe this is high on my differential currently. Ingestions is more likely at this time given examination in addition to history. Unsure if he was actively suicidal but given or conversation I am concerned about this. Plan for tox consult in addition to getting Tylenol/salicylate level, EKG, BMP, CBC. Anticipate admission. Voluntary but holdable. Irvin Heller MD ED Course as of 07/18/232231 Sun July 18, [id number] Complete Blood Count -no Diff(!) Appears slightly hemoconcentrated. Getting fluids. [TT] 2117 ECG 12-Lead STAT Sinus tach, normal axis, normal intervals. No QT prolongation. No acute ST or T- wave changes concerning for ischemia. [TT] 2150 Alcohol,Ethyl: <0.01 [TT] 2150 Acetaminophen: <3 [TT] 2150 USAMA on CKD on basic metabolic panel. Creatinine 3.4, 1.3 2 months ago [TT] 2151 ATTENDING: I personally saw the patient, performed crawford elements of the visit, and supervised patient care with the utility accounts director. MDM: 57 yo M who has methamphetamine use disorder, benzos miss use, psychosis, bipolar affective disorder, hypertension, arrives via EMS for suspected ingestionand agitation. The patient was seen another facility earlier with low-grade temperature, consideration for infectious etiology was given antibiotics, no clear source was identified, he was transferred here for higher level of care. The patient was found surrounded by various pill bottles without markings, unclear ingestion, patient will not disclose. Consideration for sympathomimetic intoxication, will assess acetaminophen/alcohol level, otherwise will provide benzodiazepines, obtain basic laboratory testing. Anticipate hospitalization. Voluntary but holdable status will be placed as the patient had intent to self-harm. [MP] 215 Plan for admission. Medicine paged. [TT] 2209 Spoke with medicine, agreeable with admission, discussed possible toxic alcohols given slight anion gap elevation an USAMA. Lactate normal. Will get a repeat BMP. [TT] 2222 Lactate, Whole Blood: 0.78 [TT] 2222 CK, Total(!): 782 [TT] 223 Spoke with medicine. Ad[facility] at [facility]. [TT] ED Course User Index [MP] Sánchez Ramírez, DO [TT] Irvin Heller MD Clinical Impressions as of 07/18/232231 USAMA (acute kidney injury) (HRC) Intentional overdose, initial encounter (HRC) Agitation Tachycardia Hypertension, unspecified type (HRC) * Amando Chacon MD - 07/18/2023 6:30 PM CDT [facility] Emergency Department Inbound Transfer Note Reason For Transfer: 57 year old male at [place] ED. Hx of schizophrenia found down at home. Surrounded by 15 different half-empty pill bottles of various meds. Has increased paranoia. Is agitatedand uncooperative. Patient denies illicit drugs and OD. VS with tachycardia WBCct it 20K. Unclear if tox vs infection vs psych. Given zyprexa and ativan. To do on arrival: Eval Coming by ground ambulance. documented in this encounter Plan of Treatment Scheduled Referrals Name Type Priority Associated Diagnoses Orde r Schedule Addiction Medicine Consult - Adult Referral Routine Methamphetamine use disorder, severe, dependence (HRC) Sedative, hypnotic or anxiolytic use disorder, severe, dependence (HRC) Alcohol use disorder, severe, dependence (HRC) Ordered: 07/20/2023 documented as of this encounter Procedures Procedure Name Priority Date/Time Associated Diagnosis Comments COMPREHENSIVE METABOLIC PANEL Routine 07/20/2023 9:05 AM CDT COMPLETE BLOOD COUNT-NO DIFF Routine 07/20/2023 9:05 AM CDT MAGNESIUM Routine 07/20/2023 9:05 AM CDT CK, TOTAL Routine 07/20/2023 9:05 AM CDT INPATIENT TELEMETRY [...] CONT STAT 07/19/2023 12 :14 PM CDT IV INSERTION(LAB TO PERFORM) STAT 07/19/2023 8:37 AM CDT TSH, SENSITIVE Add-On 07/19/2023 5:47 AM CDT BASIC METABOLIC PANEL Routine 07/19/2023 5:47 AM CDT COMPLETE BLOOD COUNT-NO DIFF Routine 07/19/2023 5:47 AM CDT CK, TOTAL Routine 07/19/2023 5:47 AM CDT IV INSERTION(LAB TO PERFORM) STAT 07/19/2023 4:51 AM CDT IV INSERTION(LAB TO PERFORM) STAT 07/19/2023 12:45 AM CDT BASIC METABOLIC PANEL STAT 07/19/2023 12:45 AM CDT BLOOD GAS, VENOUS STAT 07/19/2023 12: 45 AM CDT INPATIENT TELEMETRY MONITORING Routine 07/19/2023 12:04 AM CDT 19338 LACTATE, WHOLE BLOOD Routine 07/18/2023 10:18 PM CDT BT SECOND DRAW Routine 07/18/2023 8:50 PM CDT EXTRA BLUE TOP TUBE Routine 07/18/2023 8 :45 PM CDT EXTRA PINK/BANK TUBE Routine 07/18/2023 8:45 PM CDT BASIC METABOLIC PANEL STAT 07/18/2023 8:44 PM CDT BETA HYDROXYBUTYRATE STAT Add-On 07/18/2023 8:44 PM CDT COMPLETE BLOOD COUNT-NO DIFF STAT 07/18/2023 8:44 PM CDT ACETAMINOPHEN STAT 07/18/2023 8:44 PM CDT MAGNESIUM STAT Add-On 07/18/2023 8:44 PM CDT ALCOHOL,ETHYL STAT 07/18/2023 8:44 PM CDT SALICYLATE STAT 07/18/2023 8:44 PM CDT PHOSPHORUS STAT Add-On 07/18/2023 8:44 PM CDT CK, TOTAL STAT Add-On 07/18/2023 8:44 PM CDT ECG-ROUTINE 12 LEAD; INTRPT & REPRT STAT 07/18/2023 8:29 PM CDT documented in this encounter Results * Magnesium (07/20/2023 9:05 AM CDT) [facility] Magnesium 2.1 1.6 - 2.6 mg/dL 07/20/2023 9:44 AM [facility] Blood Venipuncture / Unknown 07/20/2023 9:05 AM CDT 07/20/2023 9:10 AM CDT Devendra Hensley DO LAB_1 Performing Organization Address [facility] Co de Phone Number [address] * (ABNORMAL) CK, Total (07/20/2023 9:05 AM CDT) CK, Total 375(H) 30 - 200 U/L 07/20/2023 9:44 AM [facility] Blood Venipuncture / Unknown 07/20/2023 9:05 AM CDT 07/20/2023 9:10 AM CDT Sarah Aguirre MD LAB_1 Performing Organization Address [facility] de Phone Number [address] * (ABNORMAL) Comprehensive Metabolic Panel (07/20/2023 9:05 AM CDT) Sodium 141 136 - 145 mmol/L 07/20/2023 9:44 AM [facility] Potassium 4.1 3.5 - 5.1 mmol/L 07/20/2023 9:44 AM [facility] Comment:Specimen slightly he molyzed. Hemolysis may affect result. Chloride 104 98 - 109 mmol/L 07/20/2023 9:44 AM [facility] CO2 25 20 - 29 mmol/L 07/20/2023 9:44 AM [facility] Anion Gap 12 6 - 16 mmol/L 07/20/2023 9:44 AM [facility] Calcium 9.7 8.4 - 10.4 mg/dL 07/20/2023 9:44 AM [facility] BUN 15 7 - 26 mg/dL 07/20/2023 9:44 AM [facility] Creatinine 1.10 0.73 - 1.18 mg/dL 07/20/2023 9:44 AM [facility] Alkaline Phosphatase 73 40 - 150 U/L 07/20/2023 9:44 AM [facility] AST (SGOT) 87(H) 10 - 40 U/L 07/20/2023 9:44 AM [facility] Comment:Specimen slightly he molyzed. Hemolysis may affect result. ALT (SGPT) 43 <=55 U/L 07/20/2023 9:44 AM [facility] Bilirubin, Total 1.1 0.2 - 1.2 mg/dL 07/20/2023 9:44 AM [facility] Protein, Total 7.3 6.4 - 8.3 g/dL 07/20/2023 9:44 AM [facility] Albumin 3.5 3.5 - 5.0 g/dL 07/20/2023 9:44 AM [facility] Glucose 83 70 - 100 mg/dL 07/20/2023 9:44 AM [facility] Comment:The given reference range is for the fasting state. Non-fasting reference range for glucose is 70 - 180 mg/dL. GFR, Estimated >60 >60 mL/min/1.7 3m2 07/20/2023 9:44 AM [facility] Blood Venipuncture / Unknown 07/20/2023 9:05 AM CDT 07/20/2023 9:10 AM [facility] Sarah Aguirre MD LAB_1 Performing Organization Address [facility]/State/[facility] [place] [address], [facility] * (ABNORMAL) Complete Blood Count-No Diff (07/20/2023 9:05 AM [facility]) WBC 8.8 3.5 - 10.5 x10(9)/L 07/20/2023 9:47 AM [facility] RBC 5.95(H) 4.32 - 5.72 x10(12)/L 07/20/2023 9:47 AM [facility] Hemoglobin 17.7(H) 13.5 - 17.5 g/dL 07/20/2023 9:47 AM [facility] HCT 52.6(H) 38.8 - 50.0 % 07/20/2023 9:47 AM [facility] MCV 88.4 80.0 - 100.0 fL 07/20/2023 9:47 AM [facility] MCH 29.7 27.6 - 33.3 pg 07/20/2023 9:47 AM [facility] MCHC 33.7 31.5 - 35.2 g/dL 07/20/2023 9:47 AM [facility] RDW 13.9 11.9 - 15.5 % 07/20/2023 9:47 AM [facility] Platelets 178 150 - 450 x10(9)/L 07/20/2023 9:47 AM [facility] Automated NRBC 0 <=0 /100 WBC 07/20/2023 9:47 AM [facility] Blood Venipuncture / Unknown 07/20/2023 9:05 AM CDT 07/20/2023 9:10 AM CDT Sarah Aguirre MD LAB_1 Performing Organization Address [facility] Co de Phone Number [facility] [address] * INPATIENT TELEMETRY MONITORING (07/20/2023 7:29 AM CDT) TELE P-R INTERVAL 0.17 MUSE [facility] TELE QRS DURATION 0.08 MUSE [facility] TELE R-R INTERVAL 0.66 MUSE [facility] TELE QT 0.32 [facility] TELE INTERPRETATION Sinus Rhythm RK RN MUSE [facility] 07/20/2023 7:29 AM CDT Narrative [facility] - 07/20/2023 10:15 AM CDT Sinus Rhythm ??RK RN Interface Provider EKG Performing Organization Address City/[facility]/ZIP Co de Phone Number [facility] [address] [place] [address] * INPATIENT TELEMETRY MONITORING (07/19/2023 11:16 PM CDT) TELE P-R INTERVAL 0.20 MUSE [facility] TELE QRS DURATION 0.08 MUSE [facility] TELE R-R INTERVAL 0.63 MUSE [facility] TELE QT 0.30 MUSE G[facility] TELE QTC 0.37 MUSE [facility] TELE INTERPRETATION Sinus Tachy ED, RN MUSE [facility] 07/19/2023 11:1 6 PM CDT Narrative MUSE P - 07/20/2023 12:53 AM CDT Sinus Tachy ??ED, RN Interface Provider EKG Performing Organization Address [facility] Co de Phone Number [facility] [address] [place] [address] * INPATIENT TELEMETRY MONITORING (07/19/2023 7:00 PM CDT) TELE P-R INTERVAL 0.15 MUSE [facility] TELE QRS DURATION 0.07 MUSE [facility] TELE R-R INTERVAL 0.52 MUSE [facility] TELE QT 0.25 MUSE [facility] TELE QTC 0.35 MUSE [facility] TELE INTERPRETATION Sinus Albert PVCs; MC, RN MUSE [facility] 07/19/2023 7:00 PM CDT Narrative [facility] - 07/19/2023 7:12 PM CDT Sinus Albert ??PVCs; MC, RN Interface Provider EKG Performing Organization Address [facility] de Phone Number [facility] [address] [place] [address] * C.Difficile Toxin,Molecular Detection,This order expires in 24 hours. Do NOT collect after: 07/20/2023; at: 3:15 PM (07/19/2023 6:28 PM CDT) [facility] C.difficile by PCR Not Detected Not Detected 07/19/2023 7:40 PM CDT [facility] Stool Non-blood Collection / Unknown 07/19/2023 6:28 PM CDT 07/19/2023 6:41 PM CDT [facility] - 07/19/2023 7:40 PM CDT Comment: A single negative test for C. difficile means the likelihood this organism is causing the diarrheal illness is extremely low. ??Therefore repeat testing within 7 days of the same diarrheal episode is strongly discouraged. Sarah Aguirre MD LAB_1 Performing Organization Address [facility] Co de Phone Number [address] [address], [facility] * (ABNORMAL) Benzodiazepines, Urine, Quantitative (07/19/2023 6:26 PM CDT) [facility] Clonazepam Metab 7-Aminoclonaze mitzi, urine Not Detected Not Detected 07/21/2023 10:01 AM CDT [facility] Alprazolam, urine Not Detected Not Detected 07/21/2023 10:01 AM T [facility] Clonazepam, urine Not Detected Not Detected 07/21/2023 10:01 AM T [facility] Diazepam, urine Not Detected Not Detected 07/21/2023 10:01 AM T [facility] Lorazepam, urine Confirmed Positive(A) Not Detected 07/21/2023 10:01 AM T [facility] Nordiazepam, urine Confirmed Positive(A) Not Detected 07/21/2023 10:01 AM T [facility] Oxazepam, urine Not Detected Not Detected 07/21/2023 10:01 AM T [facility] Temazepam, urine Confirmed Positive(A) Not Detected 07/21/2023 10:01 AM T [facility] Jieic-BL-Llmvt zolam, urine Not Detected Not Detected 07/21/2023 10:01 AM T [facility] Urine URINE SPECIMEN COLLECTION, CLEAN CATCH / Unknown Non-blood Collection / Unknown 07/19/2023 6:26 PM CDT 07/19/2023 6:42 PM CDT [facility] - 07/21/2023 10:01 AM CDT The absence [...] developed and its performance characteristics validated by [facility]. It has not been cleared nor approved by the FDA. Genet Treadwell PA-C LAB_1 [facility] [address] [place] [address], [facility] * (ABNORMAL) Amphetamines Confirmation, Urine (07/19/2023 6:26 PM CDT) Amphetamine, urine Confirmed Positive(A) Not Detected 07/21/2023 10:01 AM CDT [facility] Methamphetami ne, urine Confirmed Positive(A) Not Detected 07/21/2023 10:01 AM CDT [facility] Ecstasy MDMA, urine Not Detected Not Detected 07/21/2023 10:01 AM CDT [facility] Ecstasy Metab MDA, urine Not Detected Not Detected 07/21/2023 10:01 AM T [facility] Urine URINE SPECIMEN COLLECTION, CLEAN CATCH / Unknown Non-blood Collection / Unknown 07/19/2023 6:26 PM CDT 07/19/2023 6:42 PM CDT [facility] - 07/21/2023 10:01 AM CDT The absence [...] developed and its performance characteristics validated by [facility]. It has not been cleared nor approved by the FDA. Genet Treadwell PA-C LAB_[address] [address], [facility] * (ABNORMAL) Rapid Drug Panel, Urine (with Confirmation) with THC (07/19/2023 6:26 PM CDT) Amphetamines Screen Presumptive Positive(A) Not Detected 07/19/2023 7:06 PM CDT [facility] Barbiturates Screen Not Detected Not Detected 07/19/2023 7:06 PM CDT [facility] Benzodiazepines Screen Presumptive Positive(A) Not Detected 07/19/2023 7:06 PM CDT [facility] Buprenorphine Screen Not Detected Not Detected 07/19/2023 7:06 PM T [facility] Cocaine Metabolite Screen Not Detected Not Detected 07/19/2023 7:06 PM [facility] Methadone Screen Not Detected Not Detected 07/19/2023 7:06 PM [facility] Opiates Screen Not Detected Not Detected 07/19/2023 7:06 PM [facility] Oxycodone Screen Not Detected Not Detected 07/19/2023 7:06 PM [facility] Phencyclidine (PCP) Screen Not Detected Not Detected 07/19/2023 7:06 PM [facility] THC (Marijuana) Metab Screen Not Detected Not Detected 07/19/2023 7:06 PM [facility] Creatinine, Urine, Random 42 >20 mg/dL 07/19/2023 7:06 PM [facility] Urine URINE SPECIMEN COLLECTION, CLEAN CATCH / Unknown Non-blood Collection / Unknown 07/19/2023 6:26 PM CDT 07/19[facility]23 6[facility] 7:06 PM CDT The absence [...] Genet Treadwell PA-C LAB_1 Performing Organization Address [facility] Co de Phone Number [address] * (ABNORMAL) Potassium (07/19/2023 4:29 PM CDT) Potassium 3.4(L) 3.5 - 5.1 mmol/L 07/19/2023 4:58 PM [facility] Comment:Specimen slightly he molyzed. Hemolysis may affect result. Blood Venipuncture / Unknown 07/19/2023 4:29 PM CDT 07/19/2023 4:35 PM CDT Sarah Aguirre MD LAB_1 Performing Organization Address [facility] Co de Phone Number [address] * CT Head WO IV Cont (07/19/2023 12:14 PM CDT) Anatomical Region Laterality Modality Head Computed Tomogra phy 07/19/2023 12:1 4 PM CDT Narrative 07/19/2023 12:49 PM CDT EXAM: CT HEAD WO IV CONT LOCATION: [facility] DATE: 07/19/2023 INDICATION: Hallucinations, confusion, unknown [...] EXAM: CT HEAD WO IV CONT LOCATION: [facility] DATE: 07/19/2023 INDICATION: Hallucinations, confusion, unknown [...] Insertion, LST Perform (07/19/2023 8:37 AM CDT) IV INSERTION, LST PERFORM (LAB) Done 07/19/2023 10:00 AM CDT [facility] Other Specimen Type IV Start / Unknown 07/19/2023 8:37 AM CDT 07/19/2023 8:45 AM CDT Sarah Aguirre MD LAB_1 Performing Organization Address [facility] Co de Phone Number [address] * TSH (07/19/2023 5:47 AM CDT) Pathologist [facility] TSH, Sensitive 0.57 0.30 - 4.50 uIU/mL 07/19/2023 10:36 AM CDT [facility] Blood Venipuncture / Unknown 07/19/2023 5:47 AM CDT 07/19/2023 6:06 AM CDT Sarah Aguirre MD LAB_1 Performing Organization Address [facility] Co de Phone Number [address] * (ABNORMAL) CK, Total (07/19/2023 5:47 AM CDT) CK, Total 1,071(H) 30 - 200 U/L 07/19/2023 6:40 AM CDT [facility] Blood Venipuncture / Unknown 07/19/2023 5:47 AM CDT 07/19/2023 6:06 AM CDT Camilo Montero PA-C LAB_1 Performing Organization Address [facility]/ZIP Co de Phone Number [address] * (ABNORMAL) Basic Metabolic Panel (07/19/2023 5:47 AM CDT) Sodium 138 136 - 145 mmol/L 07/19/2023 6:40 AM [facility] Potassium 3.3(L) 3.5 - 5.1 mmol/L 07/19/2023 6:40 AM [facility] Chloride 104 98 - 109 mmol/L 07/19/2023 6:40 AM [facility] CO2 21 20 - 29 mmol/L 07/19/2023 6:40 AM [facility] Anion Gap 13 6 - 16 mmol/L 07/19/2023 6:40 AM [facility] Calcium 9.1 8.4 - 10.4 mg/dL 07/19/2023 6:40 AM [facility] BUN 34(H) 7 - 26 mg/dL 07/19/2023 6:40 AM [facility] Creatinine 2.11(H) 0.73 - 1.18 mg/dL 07/19/2023 6:40 AM [facility] Glucose 80 70 - 100 mg/dL 07/19/2023 6:40 AM [facility] Comment:The given reference range is for the fasting state. Non-fasting reference range for glucose is 70 - 180 mg/dL. GFR, Estimated 36(L) >60 mL/min/1.7 3m2 07/19/2023 6:40 AM [facility] Blood Venipuncture / Unknown 07/19/2023 5:47 AM CDT 07/19/2023 6:06 AM CDT Camilo Montero PA-C LAB_1 Performing Organization Address City/State/[facility] Co de Phone Number [id number] [place] [address] * (ABNORMAL) Complete Blood Count-No Diff (07/19/2023 5:47 AM CDT) WBC 14.1(H) 3.5 - 10.5 x10(9)/L 07/19/2023 6:14 AM [facility] RBC 5.86(H) 4.32 - 5.72 x10(12)/L 07/19/2023 6:14 AM [facility] Hemoglobin 17.1 13.5 - 17.5 g/dL 07/19/2023 6:14 AM [facility] HCT 51.7(H) 38.8 - 50.0 % 07/19/2023 6:14 AM [facility] MCV 88.2 80.0 - 100.0 fL 07/19/2023 6:14 AM [facility] MCH 29.2 27.6 - 33.3 pg 07/19/2023 6:14 AM [facility] MCHC 33.1 31.5 - 35.2 g/dL 07/19/2023 6:14 AM [facility] RDW 13.9 11.9 - 15.5 % 07/19/2023 6:14 AM [facility] Platelets 178 150 - 450 x10(9)/L 07/19/2023 6:14 AM [facility] Automated NRBC 0 <=0 /100 WBC 07/19/2023 6:14 AM [facility] Blood Venipuncture / Unknown 07/19/2023 5:47 AM CDT 07/19/2023 6:06 AM CDT Camilo Montero PA-C LAB_1 Performing Organization Address City/[facility]/ZIP Co de Phone Number [address] * IV Insertion, LST Perform (07/19/2023 4:51 AM CDT) IV INSERTION, LST PERFORM (LAB) Done 07/19/2023 7:00 AM T [facility] Other Specimen Type IV Start / Unknown 07/19/2023 4:51 AM CDT 07/19/2023 5:31 AM CDT Camilo Montero PA-C LAB_[address] * IV Insertion, LST Perform (07/19/2023 12:45 AM CDT) IV INSERTION, LST PERFORM (LAB) Done 07/19/2023 3:01 AM CDT [facility] Other Specimen Type IV Start / Unknown 07/19/2023 12:45 AM CDT 07/19/2023 1:22 AM CDT Camilo Montero PA-C LAB_1 Performing Organization Address [facility]/ZIP Co de Phone Number [address] * (ABNORMAL) Blood Gas, Venous (07/19/2023 12:45 AM CDT) PH, Venous 7.41 7.31 - 7.41 07/19/2023 12:54 AM CDT [facility] PCO2, Venous 46 40 - 52 mmHg 07/19/2023 12:54 AM [facility] PO2, Venous 32 30 - 50 mmHg 07/19/2023 12:54 AM [facility] HCO3, Calculated 28.9 23.0 - 30.0 mmol/L 07/19/2023 12:54 AM [facility] O2 Saturation, Measured, Venous 59.5(L) 60.0 - 80.0 % 07/19/2023 12:54 AM [facility] Base Excess, Calculated 3.1(H) -2.0 - 2.0 mmol/L 07/19/2023 12:54 AM [facility] Blood Venipuncture / Unknown 07/19/2023 12:45 AM CDT 07/19/2023 12:50 AM CDT Sánchez Ramírez DO LAB_1 Performing Organization Address [facility]/ZIP Co de Phone Number [address] * (ABNORMAL) Basic Metabolic Panel (07/19/2023 12:45 AM CDT) Sodium 138 136 - 145 mmol/L 07/19/2023 1:22 AM [facility] Potassium 5.1 3.5 - 5.1 mmol/L 07/19/2023 1:22 AM [facility] Comment:Specimen moderately hemolyzed. Hemolysis may affect result. Chloride 102 98 - 109 mmol/L 07/19/2023 1:22 AM [facility] CO2 22 20 - 29 mmol/L 07/19/2023 1:22 AM [facility] Anion Gap 14 6 - 16 mmol/L 07/19/2023 1:22 AM [facility] Calcium 9.4 8.4 - 10.4 mg/dL 07/19/2023 1:22 AM [facility] BUN 40(H) 7 - 26 mg/dL 07/19/2023 1:22 AM [facility] Creatinine 2.60(H) 0.73 - 1.18 mg/dL 07/19/2023 1:22 AM [facility] Glucose 99 70 - 100 mg/dL 07/19/2023 1:22 AM [facility] Comment:The given reference range is for the fasting state. Non-fasting reference range for glucose is 70 - 180 mg/dL. GFR, Estimated 28(L) >60 mL/min/1.7 3m2 07/19/2023 1:22 AM [facility] Blood Venipuncture / Unknown 07/19/2023 12:45 AM CDT 07/19/2023 12:50 AM CDT Sánchez Ramírez DO LAB_1 Performing Organization Address City/[facility]/ZIP Co de Phone Number [facility] [address] [place] [address], [facility] * INPATIENT TELEMETRY MONITORING (07/19/2023 12:04 AM CDT) TELE P-R INTERVAL 0.18 [facility]USE [facility] TELE QRS DURATION 0.08 [facility]USE [facility] TELE R-R INTERVAL 0.54 [facility] TELE QT 0.26 [facility] TELE QTC 0.35 [facility] TELE INTERPRETATION Sinus Tachy MONTEZ RN MUSE [facility] 07/19/2023 12:0 4 AM CDT Narrative [facility]USE [facility] - 07/19/2023 12:15 AM CDT Sinus Tachy ??MONTEZ, RN Interface Provider EKG Performing Organization Address City/[facility]/ZIP Co de Phone Number [facility] [address] [place] [address] * (ABNORMAL) Lactate Panel, Venous POCT (07/18/2023 10:18 PM CDT) Lactate, Whole Blood 0.78 0.50 - 2.00 mmol/L 07/18/2023 10:21 PM CDT [facility] PO2, Venous 129(H) 30 - 50 mmHg 07/18/2023 10:21 PM CDT [facility] Performing Location RCLAB ED B 07/18/2023 10:21 PM CDT [facility] Blood 07/18/2023 10:1 8 PM CDT 07/18/2023 10:21 PM CDT Sánchez Ramírez DO LAB_1 Performing Organization Address City/[facility]/ZIP Co de Phone Number [address] * Blood Type second draw (07/18/2023 8:50 PM CDT) ABO O 07/18/2023 9:34 PM CDT [facility] RH Positive 07/18/2023 9:34 PM CDT [facility] Blood Venipuncture / Unknown 07/18/2023 8:50 PM CDT 07/18/2023 9:07 PM CDT Hilary Reyna MD LAB_1 Performing Organization Address [facility] Co de Phone Number [facility] [address] [place] [address] * Extra Blue top tube (07/18/2023 8:45 PM CDT) Extra Blue Top Drawn Specimen will be held for 24 hours 07/18/2023 10:01 PM CDT [facility] Blood 07/18/2023 8:45 PM CDT 07/18/2023 9:00 PM CDT Cristo Lozano MD LAB_1 Performing Organization Address [facility] Co de Phone Number [address] * Extra [facility]/BB Hold (07/18/2023 8:45 PM CDT) Extra [facility]/Bank Tube Drawn Received in BB 07/18/2023 9:06 PM CDT [facility] Blood 07/18/2023 8:45 PM CDT 07/18/2023 8:59 PM CDT Cristo Lozano MD LAB_1 Performing Organization Address [facility] Co de Phone Number [facility] [address] [place] [address] * Phosphorus (07/18/2023 8:44 PM CDT) Phosphorus 3.9 2.3 - 4.7 mg/dL 07/18/2023 10:47 PM CDT [facility] Blood Venipuncture / Unknown 07/18/2023 8:44 PM CDT 07/18/2023 8:54 PM CDT Sánchez Ramírez DO LAB_1 Performing Organization Address [facility] Phone [address] * Magnesium (07/18/2023 8:44 PM CDT) Magnesium 2.2 1.6 - 2.6 mg/dL 07/18/2023 10:47 PM CDT [facility] Blood Venipuncture / Unknown 07/18/2023 8:44 PM CDT 07/18/2023 8:54 PM CDT Sánchez Ramírez DO LAB_1 Performing Organization Address [facility] de Phone Number [address] * (ABNORMAL) Beta Hydroxybutyrate (07/18/2023 8:44 PM CDT) Beta Hydroxybutyrate 1.78(H) 0.02 - 0.27 mmol/L 07/18/2023 10:47 PM CDT [facility] Blood Venipuncture / Unknown 07/18/2023 8:44 PM CDT 07/18/2023 8:54 PM CDT Sánchez Ramírez DO LAB_1 Performing Organization Address [facility] Co de Phone Number [address] * (ABNORMAL) CK, Total (07/18/2023 8:44 PM CDT) CK, Total 782(H) 30 - 200 U/L 07/18/2023 10:59 PM CDT [facility] Blood Venipuncture / Unknown 07/18/2023 8:44 PM CDT 07/18/2023 8:54 PM CDT Sánchez Ramírez DO LAB_1 Performing Organization Address [facility] Co de Phone Number [address] * Salicylate Level (07/18/2023 8:44 PM CDT) Salicylate <5 <=5 mg/dL 07/18/2023 9:22 PM CDT [facility] Comment:This may be a toxic clinical scenario, depending on age, kidney function, and ingestion time. Contact the Toxicology service with questions. Blood Venipuncture / Unknown 07/18/2023 8:44 PM CDT 07/18/2023 8:54 PM CDT Sánchez Aylin Ramírez DO LAB_1 Performing Organization Address [facility] Co de Phone Number [address] * Acetaminophen Level (07/18/2023 8:44 PM CDT) Acetaminophen <3 <=3 mcg/mL 07/18/2023 9:22 PM CDT [facility] Comment:This may be a toxic clinical scenario, depending on ingestion time and comorbidities. Contact the Toxicology Service with questions. Blood Venipuncture / Unknown 07/18/2023 8:44 PM CDT 07/18/2023 8:54 PM CDT Sánchez Ramírez DO LAB_1 Performing Organization Address [facility] Co de Phone Number [address] * (ABNORMAL) Complete Blood Count -no Diff (07/18/2023 8:44 PM CDT) WBC 19.2(H) 3.5 - 10.5 x10(9)/L 07/18/2023 9:13 PM T [facility] RBC 6.61(H) 4.32 - 5.72 x10(12)/L 07/18/2023 9:13 PM [facility] Hemoglobin 19.1(H) 13.5 - 17.5 g/dL 07/18/2023 9:13 PM [facility] HCT 57.5(H) 38.8 - 50.0 % 07/18/2023 9:13 PM [facility] MCV 87.0 80.0 - 100.0 fL 07/18/2023 9:13 PM [facility] MCH 28.9 27.6 - 33.3 pg 07/18/2023 9:13 PM [facility] MCHC 33.2 31.5 - 35.2 g/dL 07/18/2023 9:13 PM [facility] RDW 15.0 11.9 - 15.5 % 07/18/2023 9:13 PM [facility] Platelets 224 150 - 450 x10(9)/L 07/18/2023 9:13 PM [facility] Automated NRBC 0 <=0 /100 WBC 07/18/2023 9:13 PM [facility] Blood Venipuncture / Unknown 07/18/2023 8:44 PM CDT 07/18/2023 9:00 PM CDT Sánchez Ramírez DO LAB_[address] [address], [facility] * (ABNORMAL) Basic Metabolic Panel (07/18/2023 8:44 PM CDT) [facility] Sodium 142 136 - 145 mmol/L 07/18/2023 9:22 PM T [facility] Potassium 3.8 3.5 - 5.1 mmol/L 07/18/2023 9:22 PM T [facility] Comment:Specimen slightly he molyzed. Hemolysis may affect result. Chloride 106 98 - 109 mmol/L 07/18/2023 9:22 PM [facility] CO2 18(L) 20 - 29 mmol/L 07/18/2023 9:22 PM [facility] Anion Gap 18(H) 6 - 16 mmol/L 07/18/2023 9:22 PM [facility] Calcium 9.9 8.4 - 10.4 mg/dL 07/18/2023 9:22 PM [facility] BUN 43(H) 7 - 26 mg/dL 07/18/2023 9:22 PM [facility] Creatinine 3.40(H) 0.73 - 1.18 mg/dL 07/18/2023 9:22 PM [facility] Glucose 89 70 - 100 mg/dL 07/18/2023 9:22 PM [facility] Comment:The given reference range is for the fasting state. Non-fasting reference range for glucose is 70 - 180 mg/dL. GFR, Estimated 20(L) >60 mL/min/1.7 3m2 07/18/2023 9:22 PM [facility] Blood Venipuncture / Unknown 07/18/2023 8:44 PM CDT 07/18/2023 8:54 PM CDT Sánchez Ramírez DO LAB_[address] * Alcohol (ethyl) Level (07/18/2023 8:44 PM CDT) Ethyl Alcohol <0.01 <=0.01 g/dL 07/18/2023 9:22 PM [facility] Blood Venipuncture / Unknown 07/18/2023 8:44 PM CDT 07/18/2023 8:54 PM CDT [facility] - 07/18/2023 9:22 PM CDT For medical purposes only; not valid for forensic, legal, or employment use. Sánchez Ramírez DO LAB_[address] * ECG 12-Lead STAT (07/18/2023 8:29 PM CDT) Ventricular Rate 120 BPM MUSE [facility] Atrial Rate 120 BPM [facility]USE [facility] P-R Interval 144 ms MUSE [facility] QRS Duration 84 ms MUSE G[facility] QT 328 ms MUSE [facility] QTc 463 ms MUSE [facility] P [place] 57 degrees MUSE GHP R [place] 34 degrees MUSE GHP T [place] 171 degrees MUSE GHP 07/18/2023 8:29 PM CDT Narrative MUSE [facility] - 07/19/2023 11:53 AM CDT Sinus tachycardia [...] 07/19/2023 11:53:09 AM Elo Benito MD EKG [facility] [address] [place] [address] documented in this encounter Visit Diagnoses Diagnosis Ingestion of unknown drug- Primary Poisoning by unspecified drug or medicinal substance USAMA (acute kidney injury) (HRC) Acute kidney failure, unspecified Intentional overdose, initial encounter (HRC) Agitation Other and unspecified special symptom or syndrome, not elsewhere classified Tachycardia Tachycardia, unspecified Hypertension, unspecified type (HRC) Methamphetamine use disorder, severe, dependence (HRC) Sedative, hypnotic or anxiolytic use disorder, severe, dependence (HRC) Alcohol use disorder, severe, dependence (HRC) USAMA (acute kidney injury) (HRC) Acute kidney failure, unspecified Bipolar affective disorder (HRC) Bipolar disorder, unspecified Polysubstance abuse (HRC) Other, mixed, or unspecified nondependent drug abuse, unspecified Alcohol use disorder, severe, dependence (HRC) Sedative, hypnotic or anxiolytic use disorder, severe, dependence (HRC) Methamphetamine use disorder, severe, dependence (HRC) * Plan of Care - Janet Nj RN - 07/20/2023 2:35 PM CDT [facility] Nursing Transfer Note Admission Date/Time: 07/18/2023 8:14 PM Time of transfer: 1510 Transfer from room #: 7406 Accepting nursing unit: [facility] Valuables/belongings sent with patient?: Yes except for money that is still locked in the safe (check belongings list) Home meds being used in hospital sent with patient?: N/A Transported by: Wheelchair Family notified of unit transfer and change in patients condition: No, patient will talk to son when son calls back. General condition of patient at time of transfer: Stable Pressure ulcer present: no Select criteria that may indicate need for specialty mattress: None Does patient need specialty mattress upon transfer? No Please order specialty mattress, if it is indicated. Need for continued central line assessed: N/A Need for continued indwelling urethral catheter assessed: N/A Device detached from patient in Epic prior to transfer: Yes * Plan of Care - Melly Meyer LICSW - 07/20/2023 11:05 AM CDT [facility] Social Work Progress Note Data: Per Lukasz Josue PA-C, pt is medically cleared for in-patient psychiatry. Pt has [employer], which is out of network, so va underwriter called Nik Teixeira [facility], [facility] and [facility], and no one has anate, in-patient psychiatry bed for pt. Pt will be transferred to in-patient psychiatry at [facility]. Pt was admitted to [facility] on 07/18/23 from the ER in [place] for AMS and ingestion. Psychiatry was consulted for Assessment for suicide attempt, Decisional/Cognitive capacity, Concern suicide attempt- pt admitted with ingestion. Per H&P- when asked about how many pills he took, he stated ? not enough. Per the court database, pt does not appear to have a history of civil commitment in [place]. Pt was recently psychiatrically hospitalized on [facility] from 3/2/24-05/10/23 for symptoms of the patient's current psychiatric condition include arrest for DUI, disorganization, paranoia. Genet Treadwell PA-C, diagnosed pt with: Encephalopathy Psychosis Hx of Bipolar Disorder vs schizaffective disorder vs paranoid personality disorder Likely polysubstance use disorder (hx of alcohol, benzos/xanax,meth) Hx of PTSD Legal Status: Voluntary per [facility] - anticipate a 72-hour hold at the time of transfer to in- patient psychiatry Collateral Contacts Collateral Contacts: Other Contact 1, Family/Friend Family/Friend Contact Name: Carlos Alvarado - Parents Family/Friend Contact or [phone] Other Contact Name : Salvatore Alvarado - Son Other Contact Action Plans: [employer] is available for mental health support and coordination. Plan: Per Lukasz Josue PA-C, pt will transfer to in-patient psychiatry when a bed is available. * Plan of Care - Laurita Pringle RN - 07/20/2023 6:37 AM CDT A/O x2, disorientated to time and situation. Tele: SR/ST. HR: 80-110s. SBP: 120- 160s. Denies hallucinations, follows commands. Afebrile, face and chest are flushed, and had some episodes of diaphoresis. Mood labile and easily agitated. Restless throughout the night. PRN valilum per MAY x2. [facility]. Practitioner Notified Note Name of Practitioner notified: Devendra Hensley Time of Practitioner notification: 1:44 AM Reason: 7406 T. Maurizio. - Gave zyprexa PRN around an hour ago. Per may - pt responded well. Less agitated and sleeping. Response: no response * Plan of Care - Elizabeth Maciel RN - 07/19/2023 6:56 PM CDT [facility]. Plan of Care Note NEURO: A&Ox3, disoriented to time. Mild chronic neck pain, refused PRNs. Tingling in extremities at baseline per pt. Afebrile. Denies hallucinations. Moods labile, easily agitated, movements restless. Endorsing suicidal ideation. CV: Tele: sinus tachy w/ frequent PVCs. HR 110-120s while awake, 90-100s while asleep. SBP 140-160s. RESP: LSC. On room air. No SOB. GI/: Multiple loose bowel movements this shift. Stool sample obtained - negative for cdiff. Voiding in bathroom w/o difficulty. Denies nausea. Tolerating PO diet. Events: - 183: Pt saying just put a gun to my head and kill me. Tearful, agitated. Repetitively asking if son is still alive. PRN valium given per MAY x1 - 1900: Pt talking on phone to son and mother. RN spoke to pt's mother for update - mother's phone number changed in chart. - 1999: Pt resting calmly in room with eyes closed. Assumed Cares: [id number]. [facility]. Practitioner Notified Note Name of Practitioner notified: Devendra Hensley Time of Practitioner notification: 11:56 PM Reason: 7406 Maurizio, T. Having increased ectopy. K pill replacement? Won't do drink or IV replace. Also FYI LR stopped, yelling about IV. Thx! Response: Page sent. Report given to oncoming nurse * Plan of Care - Karen Claudio RN - 07/19/2023 3:31 PM CDT [facility] Plan of Care Note Assessment: tele, suicide interventions, safety assessments Plan: monitor and intervene when necessary Subjective: Denies pain. Denied hallucinations, both auditory and visual prior to [facility] call at 1300. 1250: Per 1:1, patient started rapidly talking to self, hyperventilating and was increasingly agitated. [facility] called. PRN 2.5 mg Valium administered. Second dose of 2.5mg Valium ordered and administered. PRN order of 50mg seroquel given once patient could tolerate sips of water. PRN IV Zyprexa administered. Objective: A&Ox3-4, disoriented to situation. ST on tele. BP (!) 160/91 (BP Cuff Size: Regular - Long) Pulse (!) 117 Temp 99.1 ??F (37.3 ??C) (Oral) Resp 13 Ht 6' 1 (1.854 m) SpO2 95% BMI 26.87 kg/m?? . 1:1 SA present at bedside throughout shift. Pt tolerated regular diet and sips of fluids. Facial and chest flushing. [facility] called at 1300 for increased agitation, hyperventilation. Pt speaking to self, speech noticeably faster than earlier in shift. Pt became inconsolable, tried to elope. Pt remained in bed, appeared shaky, still periodically hyperventilating after [facility] called. Assumed cares between [id number]. --- End of Report --- * Plan of Care - Linda Isaac RN - 07/19/2023 1:00 PM CDT [facility]. Practitioner Notified Note Name of Practitioner notified: MD Aguirre Time of Practitioner notification: 1:00 PM Reason: T.Maurizio; 7406 FYI [facility] called. pt hyperventilating with increased agitation. PRN administered~Valium. Response: FYI paged sent. [facility]. Practitioner Notified Note Name of Practitioner notified: Genet Treadwell PA-C Time of Practitioner notification: 1:04 PM Reason: 74 T.Maurizio; pls come to bedside. pt in panic state w/increased agitation. prn administered->valium. Thank you! Response: New order for IV/PO Zyprexa ordered. * Plan of Care - Shannon Saab RN, BSN - 07/19/2023 10:36 AM CDT [facility] Care Management Screening Insurance Coverage: Payor: [employer] / Plan: [employer] GOLD CHOICE / Product Type: Medicare / Primary Care Provider: Briana Vazquez PA-C Admission Info: Cognitive capacity prior to admission: oriented Independent with ADLs (Prior to Admission)? Yes Living Environment: Follow Up: CM/SW will continue to follow throughout hospitalization Additional Comments: Chart reviewed and discussed with interdisciplinary team. Patient admitted with concern for intentional ingestion. In acute psychosis. 1:1 sitter at bedside. Patient currently does not have capacity to make own medical decisions. Plan is to admit to inpatient psych when medically appropriate. Shannon Saab, RN, BSN * Plan of Care - Mai Blake RN - 07/19/2023 1:43 AM CDT [facility] Plan of Care Note Pt arrived to floor around 2330. A&Ox2, disoriented to time and situation. Follows commands, intermittently answers questions. Afebrile, Skin red/ flushed in face and chest. HR 100-110s. RA, O2 >95%. Voids in urinal. Restless throughout shift, PRN valium given per MAY. SA at bedside for safety. Practitioner Notified Note Name of Practitioner notified: Dr. Hensley Time of Practitioner notification: 1:44 AM Reason: [id number]. T Maurizio. Ativan shortage, change order to IV versed? pt restless. also can you place anorder for SA at bedside, Thanks! Response: SA orders placed, ativan switched to valium. * Triage Assessment Note - Laurita Lindo RN - 07/18/2023 8:31 PM CDT Pt arrives via EMS from [facility] after potential ingestion of pills after being picked up from home. Substance of pills is unknown and how many. Pt is schizophrenic and unable to answer questions of orientation or what he took. There is also concern from previous hospital about pock on arm that could be infected so they gave zosyn. Report states pt is baseline red but has temp of 99 and was drenched in sweat. He was also masturbating upon EMS arrival and in rig but was redirectable, tearful, and reportedly afraid en route. * Triage Assessment Note - Maria M Villavicencio RN - 07/18/2023 7:31 PM CDT ED Nursing Transfer Note Sending facility: [facility] Name/number: Linda [phone] Story/background: Found on basement floor. + hallucinations. Reports increased paranoia. HX of PTSD, Meth use, and ETOH use Meds/labs/blood admin: WBS 20. Ativan I'M 1 mg, Zyprexa, Ativan 4 mg IV IV 22 g RAC . NS infusing Vital signs: T- 99.1, HR 90-130, Sat 92-97 RA Family contact (name/number): No family will be coming in the Ambulance. Mother and father Emergency contact documented in this encounter Administered Medications Inactive Administered Medications - up to 3 most recent administrations Medication Order MAR Action Action Date Dose Rate Site bisacodyl (DULCOLAX) rectal suppository 10 mg 10 mg, Rectal, DAILY PRN, Constipation, No stool in the last 3 days, Starting on 07/18/23 at 2350, Until 07/20/23 at 1513, Cumulative bowel medication orders. Administer based on [...] platelet count is 50 k/cmm or less. diazePAM (VALIUM) injection 2.5 mg 2.5 mg, Intravenous, Q4H PRN, Anxiety, Other, agitation, Starting on Wed07/19/23 at 0335, Until Wed07/19/23 at 1308, rate of IV push: do not exceed, in children 1-2 mg/min; in adults 5 mg/min DO NOT GIVE WITHIN 1 HOURS OF PARENTERAL OLANZAPINE Given 07/19/2023 12:58 PM CDT 2.5 mg Given 07/19/2023 4:27 AM CDT 2.5 mg diazePAM (VALIUM) injection 2.5 mg 2.5 mg, Intravenous, ONCE (at 1800), First dose on Wed07/19/23 at 1800, Last dose on Wed07/19/23 at 1800, For 1 dose, rate of IV push: do not exceed, in children 1-2 mg/min; in adults 5 mg/min Given 07/19/2023 1:05 PM CDT 2.5 mg diazePAM (VALIUM) injection 2.5-5 mg 2.5-5 mg, Intravenous, Q4H PRN, Anxiety, Other, agitation, Starting on Wed07/19/23 at 1308, Until Wed07/20/23 at 1513, rate of IV push: do not exceed, in children 1-2 mg/min; in adults 5 mg/min DO NOT GIVE WITHIN 1 HOURS OF PARENTERAL OLANZAPINE Given 07/20/2023 4:38 AM CDT 5 mg Given 07/20/2023 12:29 AM CDT 5 mg Given 07/19/2023 6:30 PM CDT 5 mg diazePAM (VALIUM) injection 5 mg 5 mg, Intravenous, ONCE, On Wed07/18/23 at 2215, For 1 dose, rate of IV push: do not exceed, in children 1-2 mg/min; in adults 5 mg/min Given 07/18/2023 10:00 PM CDT 5 mg diazePAM (VALIUM) injection 5 mg 5 mg, Intravenous, ONCE, On Wed07/18/23 at 2300, For 1 dose, rate of IV push: do not exceed, in children 1-2 mg/min; in adults 5 mg/min Given 07/19/2023 12:06 AM CDT 5 mg gabapentin (NEURONTIN) capsule 300 mg 300 mg, Oral, TID, First dose on Wed07/19/23 at 2000, Until Discontinued Given 07/20/2023 1:55 PM CDT 300 mg Given 07/20/2023 9:39 AM CDT 300 mg lactated ringers infusion Intravenous, at 200 mL/hr, CONTINUOUS, Starting on Wed07/19/23 at 0015 Started 07/19/2023 9:22 AM CDT 200 mL/hr Restarted 07/19/2023 4:52 AM CDT 200 mL/hr Started 07/19/2023 1:23 AM CDT 200 mL/hr lactated ringers IV bolus 1,000 mL 1,000 mL, Intravenous, Administer over 1 Hours, ONCE, On Wed07/18/23 at 2100, For 1 dose Started 07/18/2023 8:46 PM CDT 1,000 mL LORazepam (ATIVAN) injection 2 mg 2 mg, Intravenous, ONCE, On Wed07/18/23 at 2100, For 1 dose, Intravenous Injection: Must be diluted immediately prior to intravenous administration. Using a sterile water for injection vial or a sodium chloride 0.9% vial as a diluent, add an equal volume of sterile water of injection or sodium chloride 0.9% to lorazepam in the syringe. Mix thoroughly by gently inverting the syringe. Do not shake. When mixed with equal volume, resulting concentration is 1 mg/1 mL. Rate of injection should not exceed 2 mg per minute. Intramuscular Injection: Administer undiluted, deep in the muscle mass. Given 07/18/2023 8:59 PM CDT 2 mg OLANZapine (ZyPREXA) 10 mg in sterile water 2 mL injection 10 mg, Intravenous, TID PRN, Agitation, Starting on Wed07/19/23 at 1321, DO NOT GIVE WITHIN 60 MINUTES OF PARENTERAL BENZODIAZEPINES. Add 2.1 mL of sterile water for injection to 10 mg vial of olanzapine for a final concentration of 5 mg/mL OLANZapine (ZyPREXA) tablet 5 mg 5 mg, Oral, TID PRN, Agitation, Starting on Wed07/19/23 at 1321, Until Wed07/20/23 at 1513, Notify Practitioner in 60 minutes of MIAHTAPS medication administration with patient response. Given 07/20/2023 12:29 AM CDT 5 mg Given 07/19/2023 1:28 PM CDT 5 mg polyethylene glycol (MIRALAX) oral powder 17 g 17 g, Oral, DAILY PRN, Constipation, No stool in the last 2 days, Starting on Wed07/18/23 at 2350, Until Wed07/20/23 at 1513, Cumulative bowel medication orders. Administer based on [...] stools. potassium bicarbonate-citric acid (EFFER-K) effervescent tablet 20 mEq 20 mEq, Oral, ONCE, On Wed07/19/23 at 0815, For 1 dose, Dissolve tablets completely in 3 to 4 ounces of cold/ice water or juice. May further dilute if GI adverse effects occur. May take 3-4 minutes to completely dissolve. Given 07/19/2023 8:14 AM CDT 20 mEq potassium bicarbonate-citric acid (EFFER-K) effervescent tablet 20 mEq 20 mEq, Oral, ONCE, On Wed07/20/23 at 0100, For 1 dose, Dissolve tablets completely in 3 to 4 ounces of cold/ice water or juice. May further dilute if GI adverse effects occur. May take 3-4 minutes to completely dissolve. Given 07/20/2023 1:00 AM CDT 20 mEq QUEtiapine (SEROquel) tablet 100 mg 100 mg, Oral, TID, First dose (after last modification) on Wed07/20/23 at 1000, Until Discontinued Given 07/20/2023 10:25 AM CDT 100 mg QUEtiapine (SEROquel) tablet 50 mg 50 mg, Oral, Q4H PRN, Other, hallucinations, agitation, Starting on Wed07/19/23 at 1003, Until Wed07/20/23 at 1513 senna (SENOKOT) tablet 2 Tablet 2 Tablet, Oral, BID PRN, Constipation, No stool in the last day, Starting on Wed07/18/23 at 2350, Until Wed07/20/23 at 1513, Cumulative bowel medication orders. Administer based on [...] 100 mg, Oral, DAILY, First dose on Wed07/20/23 at 0915, Until Discontinued Given 07/20/2023 9:39 AM CDT 100 mg documented in this encounter Active and Recently Administered Medications Times are shown in CDT. Scheduled Medication Order 07/18/2023 07/19/2023 07/20/2023 diazePAM (VALIUM) injection 2.5 mg (COMPLETED) 2.5 mg, Intravenous, ONCE (at 1800), First dose on Wed07/19/23 at 1800, Last dose on Wed07/19/23 at 1800, For 1 dose, rate of IV push: do not exceed, in children 1-2 mg/min; in adults 5 mg/min 1305 (Given - Provider: Karen Claudio RN)1858 (Not Given - Provider: Elizabeth Maciel RN - Reason: Contraindication - Comment: Order status conpleted. PRN valium given.) diazePAM (VALIUM) injection 5 mg (COMPLETED) 5 mg, Intravenous, ONCE, On 07/18/23 at 2215, For 1 dose, rate of IV push: do not exceed, in children 1-2 mg/min; in adults 5 mg/min 2200 (Given - Provider: Laurita Lindo RN) diazePAM (VALIUM) injection 5 mg (COMPLETED) 5 mg, Intravenous, ONCE, On 07/18/23 at 2300, For 1 dose, rate of IV push: do not exceed, in children 1-2 mg/min; in adults 5 mg/min 0006 (Given - Provider: Mai Blake RN) gabapentin (NEURONTIN) capsule 300 mg 300 mg, Oral, TID, First dose on Wed07/19/23 at 2000, Until Discontinued 1999 (Due) 0939 (Given - Provider: Janet Nj RN)1355 (Given - Provider: Janet Nj RN) lactated ringers IV bolus 1,000 mL (COMPLETED) 1,000 mL, Intravenous, Administer over 1 Hours, ONCE, On Wed07/18/23 at 2100, For 1 dose 2045 (Started - Provider: Laurita Lindo RN)2353 (Infused - Provider: Mai Blake RN) LORazepam (ATIVAN) injection 2 mg (COMPLETED) 2 mg, Intravenous, ONCE, On Wed07/18/23 at 2100, For 1 dose, Intravenous Injection: Must be diluted immediately prior to intravenous administration. Using a sterile water for injection vial or a sodium chloride 0.9% vial as a diluent, add an equal volume of sterile water of injection or sodium chloride 0.9% to lorazepam in the syringe. Mix thoroughly by gently inverting the syringe. Do not shake. When mixed with equal volume, resulting concentration is 1 mg/1 mL. Rate of injection should not exceed 2 mg per minute. Intramuscular Injection: Administer undiluted, deep in the muscle mass. 2058 (Given - Provider: Laurita Lindo RN) potassium bicarbonate-citric acid (EFFER-K) effervescent tablet 20 mEq (COMPLETED) 20 mEq, Oral, ONCE, On Wed07/19/23 at 0815, For 1 dose, Dissolve tablets completely in 3 to 4 ounces of cold/ice water or juice. May further dilute if GI adverse effects occur. May take 3-4 minutes to completely dissolve. 0814 (Given - Provider: Karen Claudio RN) potassium bicarbonate-citric acid (EFFER-K) effervescent tablet 20 mEq (COMPLETED) 20 mEq, Oral, ONCE, On Wed07/20/23 at 0100, For 1 dose, Dissolve tablets completely in 3 to 4 ounces of cold/ice water or juice. May further dilute if GI adverse effects occur. May take 3-4 minutes to completely dissolve. 0100 (Given - Provider: Laurita Pringle RN) QUEtiapine (SEROquel) tablet 100 mg 100 mg, Oral, TID, First dose (after last modification) on Wed07/20/23 at 1000, Until Discontinued 1025 (Given - Provider: Janet Nj RN) thiamine (VITAMIN B-1) tablet 100 mg 100 mg, Oral, DAILY, First dose on Wed07/20/23 at 0915, Until Discontinued 0939 (Given - Provider: Janet Nj RN) Continuous Medication Order 07/18/2023 07/19/2023 07/20/2023 lactated ringers infusion Intravenous, at 200 mL/hr, CONTINUOUS, Starting on Wed07/19/23 at 0015 0123 (Started - Provider: Mai Blake RN - Comment: started late, needed new IV)0437 (Stopped - Provider: Mai Blake RN - Comment: needs new IV)0452 (Restarted - Provider: Mai Blake RN)0703 (Stopped - Provider: Mai Blake RN - Comment: IV Occluded)09 (Started - Provider: Karen Claudio RN) 0115 (Stopped - Provider: Anca Finney RN - Comment: Patient refused and the line was making him agitated) PRN Medication Order 07/18/2023 07/19/2023 07/20/2023 benzocaine-menthol (Chloraseptic) lozenge 1 Lozenge 1 Lozenge, Oral, Q2H PRN, Throat Pain, Cough, Starting on Wed07/18/23 at 2350, Until Wed07/20/23 at 1513 bisacodyl (DULCOLAX) rectal suppository 10 mg(Linked Group 1) 10 mg, Rectal, DAILY PRN, Constipation, No stool in the last 3 days, Starting on Wed07/18/23 at 2350, Until Wed07/20/23 at 1513, Cumulative bowel medication orders. Administer based on [...] Q4H PRN, Heartburn, Upset Stomach, Starting on 07/18/23 at 2350, Until Wed07/20/23 at 1513, For indigestion/upset stomach carboxymethylcellulose PF (REFRESHPLUS) 0.5 % eye drops 1 Drop 1 Drop, Both Eyes, Q1H PRN, Dry Eyes, Itchy Eyes, Starting on 07/18/23 at 2350, Until Wed07/20/23 at 1513 diazePAM (VALIUM) injection 2.5 mg (CANCELED) 2.5 mg, Intravenous, Q4H PRN, Anxiety, Other, agitation, Starting on Wed07/19/23 at 0335, Until Wed07/19/23 at 1308, rate of IV push: do not exceed, in children 1-2 mg/min; in adults 5 mg/min DO NOT GIVE WITHIN 1 HOURS OF PARENTERAL OLANZAPINE 0427 (Given - Provider: Mai Blake RN)1258 (Given - Provider: Karen Claudio RN) diazePAM (VALIUM) injection 2.5-5 mg 2.5-5 mg, Intravenous, Q4H PRN, Anxiety, Other, agitation, Starting on Wed07/19/23 at 1308, Until Wed07/20/23 at 1513, rate of IV push: do not exceed, in children 1-2 mg/min; in adults 5 mg/min DO NOT GIVE WITHIN 1 HOURS OF PARENTERAL OLANZAPINE 1830 (Given - Provider: Elizabeth Maciel RN) 0029 (Given - Provider: Laruita Pringle RN)0438 (Given - Provider: Laurita Pringle RN) melatonin tablet 6 mg 6 mg, Oral, HS PRN, Sedation, Starting on 07/18/23 at 2350, Until Wed07/20/23 at 1513 nystatin (MYCOSTATIN) [id number] UNIT/GM topical powder Topical, BID PRN, Other, for rash due to yeast, Starting on 07/18/23 at 2350, Apply topically to affected area. Hazardous waste disposal required. OLANZapine (ZyPREXA) 10 mg in sterile water 2 mL injection(Linked Group 2) 10 mg, Intravenous, TID PRN, Agitation, Starting on Wed07/19/23 at 1321, DO NOT GIVE WITHIN 60 MINUTES OF PARENTERAL BENZODIAZEPINES. Add 2.1 mL of sterile water for injection to 10 mg vial of olanzapine for a final concentration of 5 mg/mL 1328 (See Alternative - Provider: Karen Claudio RN) 002 (See Alternative - Provider: Laurita Pringle, LAVERN) OLANZapine (ZyPREXA) tablet 5 mg(Linked Group 2) 5 mg, Oral, TID PRN, Agitation, Starting on 07/19/23 at 1321, Until Wed07/20/23 at 1513, Notify Practitioner in 60 minutes of MIAHTAPS medication administration with patient response. 1328 (Given - Provider: Karen Claudio RN) 002 (Given - Provider: Laurita Pringle, LAVERN) ondansetron (ZOFRAN) injection 4 mg 4 mg, Intravenous, Q6H PRN, Nausea, Vomiting, Starting on 07/18/23 at 2350, Until Tu07/20/23 at 1513, Give 1st line medications, then 2nd line, then 3rd line. Progress to next line if medication is ineffective after 15 minutes, or has been previously ineffective, or if a medication for a line is not ordered. ??May use medication from any line if patient preference indicates. ??If 3rd line agent is ineffective, call Practitioner. If unable to give IV medications contact Practitioner. Aromatherapy may be used at any time as adjunct therapy. 1st Line - ondansetron (give ondansetron ODT (oral) if able to take oral, otherwise give IV) 2nd Line -prochlorperazine 3rd Line - metoclopramide ondansetron (ZOFRAN-ODT) disintegrating tablet 4 mg 4 mg, Oral, Q6H PRN, Nausea, Vomiting, Starting on 07/18/23 at 2350, Until Tu07/20/23 at 1513, Give 1st line medications, then 2nd line, then 3rd line. Progress to next line if medication is ineffective after 15 minutes, or has been previously ineffective, or if a medication for a line is not ordered. May use medication from any line if patient preference indicates. If 3rd line agent is ineffective, call Practitioner. If unable to give IV medications contact Practitioner. Aromatherapy may be used at any time as adjunct therapy. 1st Line - ondansetron (give ondansetron ODT (oral) if able to take oral, otherwise give IV) 2nd Line -prochlorperazine 3rd Line - metoclopramide polyethylene glycol (MIRALAX) oral powder 17 g(Linked Group 1) 17 g, Oral, DAILY PRN, Constipation, No stool in the last 2 days, Starting on Wed07/18/23 at 2350, Until Wed07/20/23 at 1513, Cumulative bowel medication orders. Administer based on [...] again until patient stools. QUEtiapine (SEROquel) tablet 50 mg 50 mg, Oral, Q4H PRN, Other, hallucinations, agitation, Starting on 07/19/23 at 1003, Until Wed07/20/23 at 1513 1304 (Not Given - Provider: Karen Claudio RN - Reason: Other (Enter Reason in Comment Area) - Comment: Pt not swallowing water when offered) senna (SENOKOT) tablet 2 Tablet(Linked Group 1) 2 Tablet, Oral, BID PRN, Constipation, No stool in the last day, Starting on Wed07/18/23 at 2350, Until Wed07/20/23 at 1513, Cumulative bowel medication orders. Administer based on [...] day, begin regimen again until patient stools. sodium chloride (OCEAN) 0.65 % nasal solution 1 [place] 1 [place], Both Nostrils, Q2H PRN, Dry Nose, Starting on 07/18/23 at 2350, Until Wed07/20/23 at 1513 Linked Groups Order Group 1: senna (SENOKOT) tablet 2 TabletJump to med 2 Tablet, Oral, BID PRN, Constipation, No stool in the last day, Starting on Wed07/18/23 at 2350, Until Wed07/20/23 at 1513, Cumulative bowel medication orders. Administer based on [...] in the last 2 days, Starting on Wed07/18/23 at 2350, Until Wed07/20/23 at 1513, Cumulative bowel medication orders. Administer based on [...] in the last 3 days, Starting on Wed07/18/23 at 2350, Until Wed07/20/23 at 1513, Cumulative bowel medication orders. Administer based on [...] is 50 k/cmm or less. Group 2: OLANZapine (ZyPREXA) tablet 5 mgJump to med 5 mg, Oral, TID PRN, Agitation, Starting on Wed07/19/23 at 1321, Until Wed07/20/23 at 1513, Notify Practitioner in 60 minutes of MIAHTAPS medication administration with patient response. Or OLANZapine (ZyPREXA) 10 mg in sterile water 2 mL injectionJump to med 10 mg, Intravenous, TID PRN, Agitation, Starting on Wed07/19/23 at 1321, DO NOT GIVE WITHIN 60 MINUTES OF PARENTERAL BENZODIAZEPINES. Add 2.1 mL of sterile water for injection to 10 mg vial of olanzapine for a final concentration of 5 mg/mL documented in this encounter Care Teams Web Site Administrator Relationship Specialty Start Date End Date Briana Vazquez PA-C [id number] [place] [address] PCP - General Physician Truss Maker 11/29/19 documented as of this encounter
--- OUTSIDE RECORDS SUMMARY | 2023-07-22 15:07 | XMS_ITS | Encounter Summary ---
Author Name Unknown Organization [facility] Address [address], [place] [address] Care Team Providers Care Test Grader Name Role Phone Briana Vazquez PA-C Primary Care Provider [phone] Encounter Details Date Type Department Care Team [...] COVID19 05/07/2023 05/07/2023 05/07/2023 10:3 4 AM PATHOLOGY LABORATORY DIRECTOR documented as of this encounter Care Teams Test Grader Relationship Specialty Start Date End Date Briana Vazquez PA-C [address] [place] [address] PCP - General Physician Encoding Machine Operator 11/29/19 documented as of this encounter
--- OUTSIDE RECORDS SUMMARY | 2023-07-22 15:07 | XMS_ITS | Encounter Summary ---
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 AM HAT LINING PASTER Zaki Velásquez MD LAB_[address] [address], [facility] * (ABNORMAL) Liver Panel(Hepatic Function Panel) (05/08/2023 8:37 AM HAT LINING PASTER) [facility] Alkaline Phosphatase 64 40 - 150 U/L 05/08/2023 9:55 AM [facility] Bilirubin, Total 0.8 0.2 - 1.2 mg/dL 05/08/2023 9:55 AM [facility] Bilirubin, Direct 0.4 0.0 - 0.5 mg/dL 05/08/2023 9:55 AM [facility] AST (SGOT) 37 10 - 40 U/L 05/08/2023 9:55 AM [facility] ALT (SGPT) 28 <=55 U/L 05/08/2023 9:55 AM [facility] Protein, Total 6.5 6.4 - 8.3 g/dL 05/08/2023 9:55 AM [facility] Albumin 3.3(L) 3.5 - 5.0 g/dL 05/08/2023 9:55 AM [facility] Blood Venipuncture / Unknown 05/08/2023 8:37 AM HAT LINING PASTER 05/08/2023 9:21 AM HAT LINING PASTER Zaki Velásquez MD LAB_1 Performing Organization Address [facility] Co de Phone Number [address] * (ABNORMAL) Basic Metabolic Panel (05/08/2023 8:37 AM HAT LINING PASTER) Sodium 138 136 - 145 mmol/L 05/08/2023 9:55 AM [facility] Potassium 3.9 3.5 - 5.1 mmol/L 05/08/2023 9:55 AM [facility] Chloride 103 98 - 109 mmol/L 05/08/2023 9:55 AM [facility] CO2 26 20 - 29 mmol/L 05/08/2023 9:55 AM [facility] Anion Gap 9 7 - 16 mmol/L 05/08/2023 9:55 AM [facility] Calcium 9.1 8.4 - 10.4 mg/dL 05/08/2023 9:55 AM [facility] BUN 22 7 - 26 mg/dL 05/08/2023 9:55 AM [facility] Creatinine 1.41(H) 0.73 - 1.18 mg/dL 05/08/2023 9:55 AM [facility] Glucose 130(H) 70 - 100 mg/dL 05/08/2023 9:55 AM [facility] Comment:The given reference range is for the fasting state. Non-fasting reference range for glucose is 70 - 180 mg/dL. GFR, Estimated 58(L) >60 mL/min/1.7 3m2 05/08/2023 9:55 AM [facility] Comment:>60 Blood Venipuncture / Unknown 05/08/2023 8:37 AM HAT LINING PASTER 05/08/2023 9:21 AM HAT LINING PASTER Trish Patel MD LAB_[address] * (ABNORMAL) Complete Blood Count-No Diff (05/08/2023 8:37 AM HAT LINING PASTER) WBC 6.7 3.5 - 10.5 x10(9)/L 05/08/2023 9:29 AM [facility] RBC 5.82(H) 4.32 - 5.72 x10(12)/L 05/08/2023 9:29 AM [facility] Hemoglobin 17.5 13.5 - 17.5 g/dL 05/08/2023 9:29 AM [facility] HCT 53.1(H) 38.8 - 50.0 % 05/08/2023 9:29 AM [facility] MCV 91.2 80.0 - 100.0 fL 05/08/2023 9:29 AM [facility] MCH 30.1 27.6 - 33.3 pg 05/08/2023 9:29 AM [facility] MCHC 33.0 31.5 - 35.2 g/dL 05/08/2023 9:29 AM [facility] RDW 13.6 11.9 - 15.5 % 05/08/2023 9:29 AM [facility] Platelets 159 150 - 450 x10(9)/L 05/08/2023 9:29 AM [facility] Automated NRBC 0 <=0 /100 WBC 05/08/2023 9:29 AM [facility] Blood Venipuncture / Unknown 05/08/2023 8:37 AM HAT LINING PASTER 05/08/2023 9:21 AM HAT LINING PASTER Trish Patel MD LAB_1 Performing Organization Address [facility]/[place] [address], [facility] * INPATIENT TELEMETRY MONITORING (05/08/2023 7:18 AM HAT LINING PASTER) TELE P-R INTERVAL 0.20 MUSE [facility] TELE QRS DURATION 0.07 MUSE [facility] TELE R-R INTERVAL 0.81 [facility]USE [facility] TELE INTERPRETATION Sinus Rhythm HR 75 Marimar MUSE [facility] 05/08/2023 7:18 AM HAT LINING PASTER Narrative [facility]USE [facility] - 05/08/2023 7:58 AM HAT LINING PASTER Sinus Rhythm ??HR 75 Marimar Interface Provider EKG Performing Organization Address [facility] Co de Phone Number [facility] [address] [place] [address] * INPATIENT TELEMETRY MONITORING (05/07/2023 11:31 PM HAT LINING PASTER) TELE P-R INTERVAL 0.16 MUSE [facility] TELE QRS DURATION 0.06 MUSE [facility] TELE R-R INTERVAL 0.75 MUSE [facility] TELE INTERPRETATION Sinus Rhythm Hr 82 Sydni Muñoz RN MUSE [facility] 05/07/2023 11:3 1 PM HAT LINING PASTER Narrative [facility]USE [facility] - 05/08/2023 12:20 AM HAT LINING PASTER Sinus Rhythm ??Hr 82 Sydni Muñoz RN Interface Provider EKG Performing Organization Address [facility] Co de Phone Number [facility] [address] [place] [address] * INPATIENT TELEMETRY MONITORING (05/07/2023 11:31 PM HAT LINING PASTER) TELE P-R INTERVAL 0.16 MUSE [facility] TELE QRS DURATION 0.06 MUSE [facility] TELE R-R INTERVAL 0.75 MUSE [facility] TELE INTERPRETATION Sinus Rhythm Hr 82 Sydni Muñoz RN MUSE [facility] 05/07/2023 11:3 1 PM HAT LINING PASTER Narrative MUSE [facility] - 05/08/2023 12:19 AM HAT LINING PASTER Sinus Rhythm ??Hr 82 Sydni Muñoz RN Interface Provider EKG Performing Organization Address [facility] de Phone Number MOUNA [facility] [address] [place] [address] * (ABNORMAL) CK, Total (05/07/2023 9:09 PM HAT LINING PASTER) CK, Total 309(H) 30 - 200 U/L 05/08/2023 11:27 AM HAT LINING PASTER [facility] Blood Venipuncture / Unknown 05/07/2023 9:09 PM HAT LINING PASTER 05/07/2023 9:22 PM HAT LINING PASTER Zaki Velásquez MD LAB_1 Performing Organization Address [facility] Co de Phone Number [address] * (ABNORMAL) Troponin I (05/07/2023 9:09 PM HAT LINING PASTER) Troponin I 0.76(H) 0.00 - 0.03 ng/mL 05/07/2023 9:51 PM HAT LINING PASTER [facility] Blood Venipuncture / Unknown 05/07/2023 9:09 PM HAT LINING PASTER 05/07/2023 9:22 PM HAT LINING PASTER Zaki Velásquez MD LAB_1 Performing Organization Address [facility] de Phone Number [address] * US Renal W Bladder (05/07/2023 8:19 PM HAT LINING PASTER) Anatomical Region Laterality Modality Abdomen, Pelvis Ultrasound 05/07/2023 8:19 PM HAT LINING PASTER Narrative 05/07/2023 8:22 PM HAT LINING PASTER EXAM: US RENAL W BLADDER LOCATION: [facility] DATE: 05/07/2023 INDICATION: USAMA COMPARISON: None. TECHNIQUE: Routine Bilateral Renal and Bladder Ultrasound. FINDINGS: RIGHT KIDNEY: 13.4 cm. Normal without hydronephrosis or masses. LEFT KIDNEY: 15.1 cm. No hydronephrosis. Benign-appearing 2.2 cm cyst at the midpole. No follow-up needed. BLADDER: Normal. IMPRESSION: 1. ??No hydronephrosis. Procedure Note Ángel Zamora MD - 03/01/2024 EXAM: US RENAL W BLADDER LOCATION: [facility] DATE: 05/07/2023 INDICATION: USAMA COMPARISON: None. TECHNIQUE: Routine Bilateral Renal and Bladder Ultrasound. FINDINGS: RIGHT KIDNEY: 13.4 cm. Normal without hydronephrosis or masses. LEFT KIDNEY: 15.1 cm. No hydronephrosis. Benign-appearing 2.2 cm cyst atthe midpole. No follow-up needed. BLADDER: Normal. IMPRESSION: 1. No hydronephrosis. Zaki Velásquez MD RAD US * INPATIENT TELEMETRY MONITORING (05/07/2023 4:25 PM HAT LINING PASTER) Pathologist [facility] TELE P-R INTERVAL 0.16 MUSE [facility] TELE QRS DURATION 0.08 MUSE [facility] TELE R-R INTERVAL 0.68 MUSE [facility] TELE INTERPRETATION Sinus Rhythm Albertine. O RN MUSE [facility] 05/07/2023 4:25 PM HAT LINING PASTER Narrative MUSE [facility] - 05/07/2023 4:30 PM HAT LINING PASTER Sinus Rhythm ??Albertine.O RN Interface Provider EKG Performing Organization Address City/[facility]/ZIP Co de Phone Number [facility] [address] [place] [address] * (ABNORMAL) Troponin I (05/07/2023 4:06 PM HAT LINING PASTER) [facility] Troponin I 1.02(H) 0.00 - 0.03 ng/mL 05/07/2023 4:52 PM HAT LINING PASTER [facility] Blood Venipuncture / Unknown 05/07/2023 4:06 PM HAT LINING PASTER 05/07/2023 4:10 PM HAT LINING PASTER Zaki Velásquez MD LAB_1 Performing Organization Address City/[facility]/ZIP Co de Phone Number [facility] [address] [place] [address], [facility] * (ABNORMAL) Urine Drug Comprehensive Panel (with Confirmation) (05/07/2023 2:52 PM HAT LINING PASTER) Pathologist [facility] [id number] am, urine Confirmed Positive(A) Not Detected 05/11/2023 12:19 PM [facility] Alprazolam, urine Confirmed Positive(A) Not Detected 05/11/2023 12:19 PM [facility] Amitryptyline, urine Not Detected Not Detected 05/11/2023 12:19 PM [facility] Amphetamine, urine Confirmed Positive(A) Not Detected 05/11/2023 12:19 PM [facility] Benzoylecgonine, urine Not Detected Not Detected 05/11/2023 12:19 PM [facility] Buprenorphine, urine Not Detected Not Detected 05/11/2023 12:19 PM [facility] Bupropion, urine Not Detected Not Detected 07/2023 12:19 PM [facility] Butalbital, urine Not Detected Not Detected 07/2023 12:19 PM [facility] Carisoprodol, urine Not Detected Not Detected 05/11/2023 12:19 PM [facility] Citalopram, urine Confirmed Positive(A) Not Detected 05/11/2023 12:19 PM [facility] Clomipromine, urine Not Detected Not Detected 05/11/2023 12:19 PM [facility] Clonazepam Metab 7-Aminoclonazepam , urine Not Detected Not Detected 05/11/2023 12:19 PM [facility] Clonazepam, urine Not Detected Not Detected 07/2023 12:19 PM [facility] Cocaine, urine Not Detected Not Detected 2023 12:19 PM [facility] Codeine, urine Not Detected Not Detected 2023 12:19 PM [facility] Cyclobenzaprine, urine Confirmed Positive(A) Not Detected 05/11/2023 12:19 PM [facility] Desipramine, urine Not Detected Not Detected 05/11/2023 12:19 PM [facility] Diazepam, urine Not Detected Not Detected 05/10 12:19 PM [facility] Doxepin, urine Not Detected Not Detected 2023 12:19 PM [facility] Ecstasy MDMA, urine Not Detected Not Detected 05/11/2023 12:19 PM [facility] Ecstasy Metab MDA, urine Not Detected Not Detected 05/11/2023 12:19 PM [facility] Fentanyl, urine Not Detected Not Detected 05/10 12:19 PM [facility] Fluoxetine, urine Not Detected Not Detected 07/2023 12:19 PM [facility] Gabapentin, urine Confirmed Positive(A) Not Detected 05/11/2023 12:19 PM [facility] Heroin Metab 6-acetylmorphine, urine Not Detected Not Detected 05/11/2023 12:19 PM [facility] Hydrocodone, urine Not Detected Not Detected 05/11/2023 12:19 PM [facility] Hydromorphone, urine Not Detected Not Detected 05/11/2023 12:19 PM [facility] Imipramine, urine Not Detected Not Detected 07/2023 12:19 PM [facility] Ketamine, urine Not Detected Not Detected 05/10 12:19 PM [facility] Lorazepam, urine Not Detected Not Detected 07/2023 12:19 PM [facility] Marijuana Metabolite, urine Confirmed Positive(A) Not Detected 05/11/2023 12:19 PM [facility] Meperidine, urine Not Detected Not Detected 07/2023 12:19 PM [facility] Meprobamate, urine Not Detected Not Detected 05/11/2023 12:19 PM [facility] Methadone Metab EDDP, urine Not Detected Not Detected 05/11/2023 12:19 PM [facility] Methadone, urine Not Detected Not Detected 07/2023 12:19 PM [facility] Methamphetamine, urine Confirmed Positive(A) Not Detected 05/11/2023 12:19 PM [facility] Methylphenidate, urine Not Detected Not Detected 05/11/2023 12:19 PM [facility] Mirtazapine, urine Not Detected Not Detected 05/11/2023 12:19 PM [facility] Morphine, urine Not Detected Not Detected 05/10 12:19 PM [facility] Norbuprenorphine, urine Not Detected Not Detected 05/11/2023 12:19 PM [facility] Nordiazepam, urine Not Detected Not Detected 05/11/2023 12:19 PM [facility] Desmethyldoxapine , urine Not Detected Not Detected 05/11/2023 12:19 PM [facility] Norfentanyl, urine Not Detected Not Detected 05/11/2023 12:19 PM [facility] Nortriptyline, urine Not Detected Not Detected 05/11/2023 12:19 PM [facility] O-desmethylvenlaf axine, urine Not Detected Not Detected 05/11/2023 12:19 PM [facility] Oxazepam, urine Not Detected Not Detected 05/10 12:19 PM [facility] Oxycodone, urine Confirmed Positive(A) Not Detected 05/11/2023 12:19 PM [facility] Oxymorphone, urine Not Detected Not Detected 05/11/2023 12:19 PM [facility] Paroxatine, urine Not Detected Not Detected 07/2023 12:19 PM [facility] Phencyclidine, urine Not Detected Not Detected 05/11/2023 12:19 PM [facility] Phenobarbital, urine Not Detected Not Detected 05/11/2023 12:19 PM [facility] Pregabalin, urine Not Detected Not Detected 07/2023 12:19 PM [facility] Quetiapine, urine Confirmed Positive(A) Not Detected 05/11/2023 12:19 PM [facility] Sertraline, urine Not Detected Not Detected 07/2023 12:19 PM [facility] Tapentadol, urine Not Detected Not Detected 07/2023 12:19 PM [facility] Temazepam, urine Not Detected Not Detected 07/2023 12:19 PM [facility] Tramadol, urine Not Detected Not Detected 05/10 12:19 PM [facility] Venlafaxine, urine Not Detected Not Detected 05/11/2023 12:19 PM [facility] Zolpidem, urine Not Detected Not Detected 05/10 12:19 PM [facility] Creatinine, Urine, Random 206 >20 mg/dL 05/11/2023 12:19 PM [facility] Medication Check Inconsistent with Med List(A) Consistent with Med List 05/11/2023 12:19 PM [facility] Patient Medication History Current Facility-Admin istered Medications [...] outpatient medications on file. 05/11/2023 12:19 PM [facility] Medication Interpretation Not prescribed and detected: Alprazolam not prescribed and detected with metabolite [id number] zolam Cannabis detected as THC metabolite Citalopram not prescribed and detected Cyclobenzaprin e not prescribed and detected Methamphetamin e detected with metabolite amphetamine Oxycodone not prescribed and detected Prescribed and not detected: Diazepam prescribed and not detected Prescribed and detected: Gabapentin prescribed and detected Quetiapine prescribed and detected 05/11/2023 12:19 PM [facility] Urine Non-blood Collection / Unknown 05/07/2023 2:52 PM HAT LINING PASTER 05/07/2023 3:02 PM [facility] - 05/11/2023 12:19 PM HAT LINING PASTER The absence of expected drug(s) and/or drug [...] developed and its performance characteristics validated by [facility]. It has not been cleared nor approved by the FDA. Zaki Velásquez MD LAB_1 [facility] [address] [place] [address], [facility] * (ABNORMAL) Rapid Drug Panel, Urine (with Confirmation) with THC (05/07/2023 2:52 PM HAT LINING PASTER) [facility] Amphetamines Screen Presumptive Positive(A) Not Detected 05/07/2023 3:37 PM [facility] Barbiturates Screen Not Detected Not Detected 05/07/2023 3:37 PM [facility] Benzodiazepines Screen Presumptive Positive(A) Not Detected 05/07/2023 3:37 PM [facility] Buprenorphine Screen Not Detected Not Detected 05/07/2023 3:37 PM [facility] Cocaine Metabolite Screen Not Detected Not Detected 05/07/2023 3:37 PM [facility] Methadone Screen Not Detected Not Detected 05/07/2023 3:37 PM [facility] Opiates Screen Not Detected Not Detected 05/07/2023 3:37 PM [facility] Oxycodone Screen Not Detected Not Detected 05/07/2023 3:37 PM [facility] Phencyclidine (PCP) Screen Not Detected Not Detected 05/07/2023 3:37 PM [facility] THC (Marijuana) Metab Screen Presumptive Positive(A) Not Detected 05/07/2023 3:37 PM [facility] Creatinine, Urine, Random 206 >20 mg/dL 05/07/2023 3:37 PM [facility] Urine Non-blood Collection / Unknown 05/07/2023 2:52 PM HAT LINING PASTER 05/07/2023 3:02 PM [facility] - 05/07/2023 3:37 PM HAT LINING PASTER The absence of expected drug(s) and/or drug [...] Zaki Velásquez MD LAB_1 Performing Organization Address [facility] Co de Phone Number [address] * Rapid Fentanyl, Urine (with confirmation) (05/07/2023 2:52 PM HAT LINING PASTER) Pathologist [facility] Rapid Fentanyl Screen Not Detected Not Detected 05/07/2023 3:37 PM [facility] Creatinine, Urine, Random 206 >20 mg/dL 05/07/2023 3:37 PM [facility] Urine Non-blood Collection / Unknown 05/07/2023 2:52 PM HAT LINING PASTER 05/07/2023 3:02 PM HAT LINING PASTER [facility] 05/07/2023 3:37 PM HAT LINING PASTER The absence of expected drug(s) and/or drug [...] Althea Grigsby PA-C LAB_1 Performing Organization Address [facility] de Phone Number [address] * Creatinine, Urine Random (05/07/2023 2:52 PM HAT LINING PASTER) Creatinine, Urine, Random 206 >20 mg/dL 05/07/2023 3:37 PM [facility] Urine Non-blood Collection / Unknown 05/07/2023 2:52 PM HAT LINING PASTER 05/07/2023 3:02 PM HAT LINING PASTER Zaki Velásquez MD LAB_1 Performing Organization Address [facility]/ZIP Co de Phone Number [address] * Sodium, Urine Random (05/07/2023 2:52 PM HAT LINING PASTER) Sodium, Urine Random 43 mmol/L 05/07/2023 4:55 PM [facility] Urine Non-blood Collection / Unknown 05/07/2023 2:52 PM HAT LINING PASTER 05/07/2023 3:02 PM HAT LINING PASTER Zaki Velásquez MD LAB_1 Performing Organization Address [facility] de Phone Number [address] * (ABNORMAL) UA Conditional UC: Clean Catch (05/07/2023 2:52 PM HAT LINING PASTER) [facility] Urine Culture Comment Urinalysis results do not meet criteria for urine culture reflex. 05/07/2023 3:16 PM [facility] Urine Color Yellow 05/07/2023 3:16 PM [facility] Urine Clarity Clear Clear 05/07/2023 3:16 PM [facility] Specific [place], Urine 1.042(H) <1.030 05/07/2023 3:16 PM [facility] Comment:The Specific gravity may be falsely elevated due to the presence of x- ray contrast media, high molecular weight drugs, protein OVER (>600) or Glucose OVER (>1000). If results needed contact lab to have specific gravity performed by alternate method. PH Urine 6.5 5.0 - 8.0 05/07/2023 3:16 PM [facility] Protein, Urine Qual (mg/dL) 30(A) Negative, 10 , 20 05/07/2023 3:16 PM [facility] Glucose Urine Qual (mg/dL) Normal (Negative) Normal (Negative), 30 , 50 05/07/2023 3:16 PM [facility] Ketones, Urine (mg/dL) 10(A) Negative, Trace 05/07/2023 3:16 PM [facility] Urobilinogen, Urine (EU/dL) Normal (Negative) Normal (Negative) 05/07/2023 3:16 PM [facility] Bilirubin Urine (mg/dL) Negative Negative 05/07/2023 3:16 PM [facility] Blood, Urine (mg/dL) Negative Negative, 0.03 (Trace) 05/07/2023 3:16 PM [facility] Nitrite Urine Negative Negative 05/07/2023 3:16 PM [facility] Leukocyte Esterase, Urine (Dean/uL) Negative Negative, 25 (Trace) 05/07/2023 3:16 PM [facility] Red Blood Cells 7(H) 0 - 3 /HPF 05/07/2023 3:16 PM [facility] White Blood Cells 5 0 - 5 /HPF 05/07/2023 3:16 PM [facility] Mucus Present(A) None Seen /HPF 05/07/2023 3:16 PM [facility] Hyaline Casts 11(H) <=2 /LPF 05/07/2023 3:16 PM [facility] Urine Source Clean Catch 05/07/2023 3:16 PM [facility] Urine URINE SPECIMEN COLLECTION, CLEAN CATCH / Unknown Non-blood Collection / Unknown 05/07/2023 2:52 PM HAT LINING PASTER 05/07/2023 3:04 PM HAT LINING PASTER [facility] - 05/07/2023 3:16 PM HAT LINING PASTER The qualitative interpretive guidance provided (e.g., small, moderate, large) is intended to aid in quantitative result interpretation. It is not itself an FDA-cleared test result. Shanta Kaur MD LAB_1 Performing Organization Address [facility]/State/[place] Co de Phone Number [address] * Phosphatidylethanol (PEth), Quantitative (05/07/2023 2:11 PM HAT LINING PASTER) PEth 16:0/18:1 (POPEth) 142 ng/mL 05/11/2023 2:45 PM HAT LINING PASTER [facility] Comment: PEth 16:0/18:1 (POPEth) Less than 10 ng/mL............Not detected Less than 20 ng/mL............Abstinence or light alcohol consumption 20 - 200 ng/mL................Moderate alcohol consumption Greater than 200 ng/mL........Heavy alcohol consumption or chronic alcohol use (Reference: Layne Mann and Toni Muñoz 2018 J. Forensic Sci) PEth 16:0/18:2 (PLPEth) 100 ng/mL 05/11/2023 2:45 PM HAT LINING PASTER [facility] Comment:Reference ranges are not well established. EER Peth See Note 05/11/2023 2:45 PM HAT LINING PASTER [facility] Comment: Authorized individuals can access the Attorney[employer]ee Enhanced Report using the following link: [email or web address] PEth Interpretation See Comment 05/11/2023 2:45 PM HAT LINING PASTER [facility] Comment: Phosphatidylethanol (PEth) is a group of [...] developed and its performance characteristics determined by [facility]. It has not been cleared or approved by the U.S. Food and Drug Administration. This test was performed in a CLIA-certified laboratory and is intended for clinical purposes. Performed By: [facility] [address] [place] [address] [employer] Driver: Ben Ellison MD, PhD CLIA Number: [id number] Blood Venipuncture / Unknown 05/07/2023 2:11 PM HAT LINING PASTER 05/07/2023 2:14 PM HAT LINING PASTER Althea Grigsby PA-C LAB_1 Performing Organization Address City/[facility]/ZIP Co de Phone Number [facility] [address] [place], [place] [address] [place] [address] * (ABNORMAL) XA Unfractionated Heparin (05/07/2023 2:11 PM HAT LINING PASTER) Heparin 10a Level (Unfractionate d Hep) 0.11(L) 0.30 - 0.70 IU/mL 05/07/2023 2:38 PM HAT LINING PASTER [facility] Blood Venipuncture / Unknown 05/07/2023 2:11 PM HAT LINING PASTER 05/07/2023 2:14 PM HAT LINING PASTER Zaki Velásquez MD LAB_1 Performing Organization Address City/[facility]/ZIP Co de Phone Number [address] * EJECTION FRACTION (05/07/2023 1:15 PM HAT LINING PASTER) EF 60 % [facility] EF test type ECHO [facility] 05/07/2023 1:15 PM HAT LINING PASTER Trish Patel MD [facility]/RH Performing Organization Address [facility] Co de Phone Number [facility] [address] [place] [address] * CARDIAC ROUTINE ECHOCARDIOGRAM (05/07/2023 1:15 PM HAT LINING PASTER) 05/07/2023 1:15 PM HAT LINING PASTER Narrative [facility] - 05/07/2023 2:56 PM HAT LINING PASTER Summary ??1. Technically difficult exam, contrast was used. ??2. Sinus rhythm during study. ??3. grossly normal LV size and systolic function, EF 60%. No obvious focal wall motion abnormalities. ??4. Grossly uoht-[id number]-fldmijqw LVH. ??5. Grossly normal RV size and [...] No obviousfocal wall motion abnormalities. 4. Grossly zlun-fp-[id number] LVH. 5. Grossly normal RV size and [...] CENTER ECHO/ RH [facility] [address] [place] [address] * (ABNORMAL) Lipid Panel & Direct LDL (if Needed) (05/07/2023 12:06 PM HAT LINING PASTER) Cholesterol 91 0 - 199 mg/dL 05/07/2023 3:44 PM [facility] Triglyceride 77 <=149 mg/dL 05/07/2023 3:44 PM [facility] HDL Cholesterol 31(L) >=40 mg/dL 3:44 PM [facility] LDL, Calculated 45 <130 mg/dL 3:44 PM [facility] Non HDL Chol, Calculated 60 <=159 mg/dL 05/07/2023 3:44 PM [facility] Cholesterol/HDL Ratio 2.9 <=5.0 05/07/2023 3:44 PM [facility] Blood Venipuncture / Unknown 05/07/2023 12:06 PM HAT LINING PASTER 05/07/2023 12:13 PM HAT LINING PASTER Zaki Velásquez MD LAB_1 Performing Organization Address [facility]/ZIP Co de Phone Number [address] * (ABNORMAL) Troponin I (05/07/2023 12:06 PM HAT LINING PASTER) Troponin I 0.88(H) 0.00 - 0.03 ng/mL 05/07/2023 12:53 PM HAT LINING PASTER [facility] Blood Venipuncture / Unknown 05/07/2023 12:06 PM HAT LINING PASTER 05/07/2023 12:13 PM HAT LINING PASTER Trish Patel MD LAB_1 Performing Organization Address [facility] System/[facility] Co de Phone Number [address] * (ABNORMAL) Troponin I (05/07/2023 9:36 AM HAT LINING PASTER) Pathologist [facility] Troponin I 0.60(H) 0.00 - 0.03 ng/mL 05/07/2023 10:17 AM HAT LINING PASTER [facility] Blood Venipuncture / Unknown 05/07/2023 9:36 AM HAT LINING PASTER 05/07/2023 9:42 AM HAT LINING PASTER Trish Patel MD LAB_1 Performing Organization Address [facility] Co de Phone [address] * RSV RNA, Molecular Detection (05/07/2023 9:35 AM HAT LINING PASTER) Pathologist [facility] RSV by PCR Not Detected Not Detected 05/07/2023 10:34 AM [facility] Swab (Source Required) (Nasopharyngeal swab) Non-blood Collection / Unknown 05/07/2023 9:35 AM HAT LINING PASTER 05/07/2023 9:42 AM HAT LINING PASTER [facility] - 05/07/2023 10:34 AM HAT LINING PASTER Method: Qualitative real-time PCR assay to detect RSV Viral RNA. Trish Patel MD LAB_1 Performing Organization Address City/[facility]/ZIP Co de Phone Number [address] * Influenza A and B by PCR (05/07/2023 9:35 AM HAT LINING PASTER) Pathologist [facility] INFLUENZA A MOLECULAR Not Detected Not Detected 05/07/2023 10:34 AM [facility] INFLUENZA B MOLECULAR Not Detected Not Detected 05/07/2023 10:34 AM [facility] Swab (Source Required) (Nasopharyngeal swab) Non-blood Collection / Unknown 05/07/2023 9:35 AM HAT LINING PASTER 05/07/2023 9:42 AM HAT LINING PASTER [facility] - 05/07/2023 10:34 AM HAT LINING PASTER Methodology: ??Qualitative real-time PCR assay to detect the Influenza type A and type B viral RNA Trish Patel MD LAB_1 Performing Organization Address [facility] Co de Phone Number [address] * 2019 Novel Coronavirus (COVID-19) (05/07/2023 9:35 AM HAT LINING PASTER) [facility] COVID-19 Interpretation Not Detected Not Detected 05/07/2023 10:34 AM [facility] Source Nasopharyngeal swab 05/07/2023 10:34 AM [facility] Swab (Source Required) (Nasopharyngeal swab) Non-blood Collection / Unknown 05/07/2023 9:35 AM HAT LINING PASTER 05/07/2023 9:42 AM HAT LINING PASTER [facility] - 05/07/2023 10:34 AM HAT LINING PASTER Test performed by real-time PCR. This test has been authorized by the FDA under an Emergency Use Authorization (EUA) for use by authorized laboratories. Trish Patel MD LAB_1 Performing Organization Address City/[facility] Co de Phone Number [address] * (ABNORMAL) Blood Gas, Venous (05/07/2023 7:37 AM HAT LINING PASTER) Pathologist [facility] PH, Venous 7.37 7.31 - 7.41 05/07/2023 7:42 AM [facility] PCO2, Venous 54(H) 40 - 52 mmHg 05/07/2023 7:42 AM [facility] PO2, Venous 58(H) 30 - 50 mmHg 05/07/2023 7:42 AM [facility] HCO3, Calculated 31.0(H) 23.0 - 30.0 mmol/L 05/07/2023 7:42 AM [facility] O2 Saturation, Measured, Venous 89.8(H) 60.0 - 80.0 % 05/07/2023 7:42 AM [facility] Base Excess, Calculated 3.9(H) -2.0 - 2.0 mmol/L 05/07/2023 7:42 AM [facility] Blood Venipuncture / Unknown 05/07/2023 7:37 AM HAT LINING PASTER 05/07/2023 7:40 AM HAT LINING PASTER Trish Patel MD LAB_1 Performing Organization Address City/State/[place] [address], [facility] * ECG 12-Lead STAT (05/07/2023 6:30 AM HAT LINING PASTER) Ventricular Rate 88 BPM [facility] Atrial Rate 88 BPM [facility] P-R Interval 158 ms [facility] QRS Duration 90 ms [facility] QT 336 ms M[facility] QTc 406 ms [facility] P [place] 57 degrees MUSE [facility] R [place] 27 degrees MUSE [facility] T [place] 210 degrees M[facility] 05/07/2023 6:30 AM HAT LINING PASTER Narrative [facility] - 05/07/2023 8:23 AM HAT LINING PASTER Sinus rhythm Minimal voltage criteria for LVH, may be normal variant ST & T wave abnormality, consider lateral ischemia Abnormal ECG When compared with ECG of 07-MAY-2023 05:01, Nonspecific T wave abnormality has replaced inverted T waves in Inferior leads QT has shortened Confirmed by Queenie Blue ([id number]) on 05/07/2023 8:23:01 AM Procedure Note Queenie Blue MD - 05/07/2023 Sinus rhythm Minimal voltage criteria for LVH, may be normal variant ST & T wave abnormality, consider lateral ischemia Abnormal ECG When compared with ECG of 07-MAY-2023 05:01, Nonspecific T wave abnormality has replaced inverted T waves in Inferiorleads QT has shortened Confirmed by Queenie Blue ([id number]) on 05/07/2023 8:23:01 AM Shanta Kaur MD EKG Performing Organization Address [facility]/ZIP Co de Phone Number [facility] [address] [place] [address] * (ABNORMAL) Creatinine / GFR (05/07/2023 6:22 AM HAT LINING PASTER) Creatinine 2.46(H) 0.73 - 1.18 mg/dL 05/07/2023 7:36 AM [facility] GFR, Estimated 30(L) >60 mL/min/1.7 3m2 05/07/2023 7:36 AM [facility] Blood Venipuncture / Unknown 05/07/2023 6:22 AM HAT LINING PASTER 05/07/2023 6:26 AM HAT LINING PASTER Shanta Kaur MD LAB_1 Performing Organization Address [facility]/ZIP Co de Phone Number [address] * (ABNORMAL) Troponin I (05/07/2023 6:22 AM HAT LINING PASTER) Troponin I 0.20(H) 0.00 - 0.03 ng/mL 05/07/2023 7:02 AM [facility] Blood Venipuncture / Unknown 05/07/2023 6:22 AM HAT LINING PASTER 05/07/2023 6:26 AM HAT LINING PASTER Shanta Kaur MD LAB_1 Performing Organization Address [facility] Co de Phone Number [address] * Lactate Panel, Venous POCT (05/07/2023 6:14 AM HAT LINING PASTER) Lactate, Whole Blood 0.83 0.50 - 2.00 mmol/L 05/07/2023 6:16 AM [facility] PO2, Venous 36 30 - 50 mmHg 05/07/2023 6:16 AM [facility] Performing Location [facility] ED A 05/07/2023 6:16 AM HAT LINING PASTER [facility] Blood 05/07/2023 6:14 AM HAT LINING PASTER 05/07/2023 6:16 AM HAT LINING PASTER Shanta Kaur MD LAB_1 [place] [address], [facility] * CT Angio Chest W IV Cont PE Study (05/07/2023 5:47 AM HAT LINING PASTER) Anatomical Region Laterality Modality Chest, Lung, Vascular Computed T omography 05/07/2023 5:47 AM HAT LINING PASTER Narrative 05/07/2023 5:58 AM HAT LINING PASTER EXAM: CT ANGIO CHEST W IV CONT PE STUDY LOCATION: [facility] DATE: 05/07/2023 INDICATION: Hypoxia, syncope, ischemic ECG [...] CHEST W IV CONT PE STUDY LOCATION: [facility] DATE: 05/07/2023 INDICATION: Hypoxia, [...] 3 mm bilateral pulmonary nodules. Per Fleischner [id number] guideline, a one-year follow-up chest CT could be considered ifpatient is at high risk for lung cancer. Without lung cancer risk factor,no follow-up is necessary. Shanta Kaur MD RAD CT * POC US Basic Cardiac (05/07/2023 5:13 AM HAT LINING PASTER) Anatomical Region Laterality Modality Chest, Cardiac, US Cardiac Other Narrative 05/07/2023 11:08 AM HAT LINING PASTER Aaron Patterson MD ? 05/07/2023 ??2:31 PM [facility] Point of Care Ultrasound Interpretation POC US Basic Cardiac Date/Time: 05/07/2023 11:08 AM Performed by: Aaron Patterson MD Authorized by: Shanta Kaur MD ?? Point of Care Ultrasound: Basic Cardiac Indications: Shortness of Breath and Syncope Window: Adequate for full imaging and interpretation Findings/ Impression (Within the context of limited [id number] ultrasound): Mildly Depressed LV Function, Right Ventricle Enlarged with positive D sign on parasternal short axis view concerning for elevated right-sided pressures, No Pericardial Effusion, and IVC Dilated Shanta Kaur MD RAD POC US * ECG 12-Lead STAT (EKG) (05/07/2023 5:01 AM HAT LINING PASTER) Ventricular Rate 89 BPM [facility] Atrial Rate 89 BPM [facility] P-R Interval 152 ms [facility] QRS Duration 90 ms [facility] QT 426 ms M[facility] QTc 518 ms M[facility] P [place] 63 degrees MUSE GHP R [place] 45 degrees MUSE GHP T [place] 252 degrees MUSE [facility] 05/07/2023 5:01 AM HAT LINING PASTER Narrative [facility] - 05/07/2023 8:29 AM HAT LINING PASTER Sinus rhythm Minimal voltage criteria for LVH, may be normal variant T wave abnormality, consider inferolateral ischemia Marked T wave abnormality, consider anterior ischemia Prolonged QT Abnormal ECG When compared with ECG of 10-SEP-2015 13:20, T wave inversion now evident in Inferior leads T wave inversion now evident in Lateral leads QT has lengthened Confirmed by Queenie Blue ([id number]) on 05/07/2023 8:29:53 AM Procedure Note Queenie [...] QT has lengthened Confirmed by Queenie Blue ([id number]) on 05/07/2023 8:29:53 AM Shanta Kaur MD EKG Performing Organization Address [facility]/ZIP Co de Phone Number [facility] [address] [place] [address] * INR/PROTIME (05/07/2023 4:20 AM HAT LINING PASTER) Protime 14.0 11.8 - 14.6 Seconds 05/07/2023 7:55 AM [facility] INR 1.1 0.9 - 1.1 05/07/2023 7:55 AM [facility] Blood Venipuncture / Unknown 05/07/2023 4:20 AM HAT LINING PASTER 05/07/2023 4:35 AM HAT LINING PASTER [facility] - 05/07/2023 7:55 AM HAT LINING PASTER Therapeutic range determined by protocol established by anticoagulation provider. Shanta Kaur MD LAB_1 Performing Organization Address [facility]/[place] Co de Phone Number [address] * (ABNORMAL) APTT (Activated Partial Thromboplastin Time) (05/07/2023 4:20 AM HAT LINING PASTER) [facility] APTT 40.4(H) 22.5 - 36.5 Seconds 05/07/2023 7:55 AM [facility] Blood Venipuncture / Unknown 05/07/2023 4:20 AM HAT LINING PASTER 05/07/2023 4:35 AM HAT LINING PASTER Shanta Kaur MD LAB_1 Performing Organization Address [facility]/[place] Co de Phone Number [address] * B-Type Natriuretic Peptide (05/07/2023 4:20 AM HAT LINING PASTER) B Type Natr. Peptide 15 <=99 pg/mL 05/07/2023 7:05 AM [facility] Blood Venipuncture / Unknown 05/07/2023 4:20 AM HAT LINING PASTER 05/07/2023 4:34 AM HAT LINING PASTER Shanta Kaur MD LAB_1 Performing Organization Address [facility] de Phone Number [address] * Liver Panel (Hepatic Function Panel) (05/07/2023 4:20 AM HAT LINING PASTER) Alkaline Phosphatase 60 40 - 150 U/L 05/07/2023 6:23 AM [facility] Bilirubin, Total 1.1 0.2 - 1.2 mg/dL 05/07/2023 6:23 AM [facility] Bilirubin, Direct 0.4 0.0 - 0.5 mg/dL 05/07/2023 6:23 AM [facility] AST (SGOT) 30 10 - 40 U/L 05/07/2023 6:23 AM [facility] ALT (SGPT) 22 <=55 U/L 05/07/2023 6:23 AM [facility] Protein, Total 6.5 6.4 - 8.3 g/dL 05/07/2023 6:23 AM [facility] Albumin 3.5 3.5 - 5.0 g/dL 05/07/2023 6:23 AM [facility] Blood Venipuncture / Unknown 05/07/2023 4:20 AM HAT LINING PASTER 05/07/2023 4:35 AM HAT LINING PASTER Shanta Kaur MD LAB_1 Performing Organization Address [facility]/[place] Co de Phone Number [address] * (ABNORMAL) D Dimer, Quantitative (05/07/2023 4:20 AM HAT LINING PASTER) D Dimer, Quant 0.74(H) <=0.50 ug/mL FEU 05/07/2023 5:53 AM [facility] Blood Venipuncture / Unknown 05/07/2023 4:20 AM HAT LINING PASTER 05/07/2023 4:35 AM HAT LINING PASTER Narrative [facility] - 05/07/2023 5:53 AM HAT LINING PASTER A D-dimer level <=0.50 ug/mL FEU in [...] Shanta Kaur MD LAB_1 Performing Organization Address [facility]/[place] Co de Phone Number [address] * Extra Blue top tube (05/07/2023 4:20 AM HAT LINING PASTER) Extra Blue Top Drawn Specimen will be held for 24 hours 05/07/2023 6:00 AM [facility] Blood Venipuncture / Unknown 05/07/2023 4:20 AM HAT LINING PASTER 05/07/2023 4:35 AM HAT LINING PASTER Shanta Kaur MD LAB_1 Performing Organization Address [facility]/[place] Co de Phone Number [address] * Magnesium (05/07/2023 4:20 AM HAT LINING PASTER) Magnesium 2.0 1.6 - 2.6 mg/dL 05/07/2023 5:00 AM HAT LINING PASTER [facility] Blood Venipuncture / Unknown 05/07/2023 4:20 AM HAT LINING PASTER 05/07/2023 4:35 AM HAT LINING PASTER Shanta Kaur MD LAB_1 Performing Organization Address [facility]/[place] Co de Phone Number [address] * Alcohol,Ethyl Level (05/07/2023 4:20 AM HAT LINING PASTER) Ethyl Alcohol <0.01 <=0.01 g/dL 05/07/2023 5:00 AM [facility] Blood Venipuncture / Unknown 05/07/2023 4:20 AM HAT LINING PASTER 05/07/2023 4:35 AM HAT LINING PASTER [facility] 05/07/2023 5:00 AM HAT LINING PASTER For medical purposes only; not valid for forensic, legal, or employment use. Shanta Kaur MD LAB_1 Performing Organization Address [facility] Phone [address] * (ABNORMAL) Troponin I (05/07/2023 4:20 AM HAT LINING PASTER) Troponin I 0.13(H) 0.00 - 0.03 ng/mL 05/07/2023 5:04 AM [facility] Blood Venipuncture / Unknown 05/07/2023 4:20 AM HAT LINING PASTER 05/07/2023 4:35 AM HAT LINING PASTER Shanta Kaur MD LAB_1 Performing Organization Address [facility]/[place] Co de Phone Number [address] * (ABNORMAL) Complete Blood Count -no Diff (05/07/2023 4:20 AM HAT LINING PASTER) WBC 9.4 3.5 - 10.5 x10(9)/L 05/07/2023 4:53 AM [facility] RBC 5.96(H) 4.32 - 5.72 x10(12)/L 05/07/2023 4:53 AM [facility] Hemoglobin 17.6(H) 13.5 - 17.5 g/dL 05/07/2023 4:53 AM [facility] HCT 53.4(H) 38.8 - 50.0 % 05/07/2023 4:53 AM [facility] MCV 89.6 80.0 - 100.0 fL 05/07/2023 4:53 AM [facility] MCH 29.5 27.6 - 33.3 pg 05/07/2023 4:53 AM [facility] MCHC 33.0 31.5 - 35.2 g/dL 05/07/2023 4:53 AM [facility] RDW 13.6 11.9 - 15.5 % 05/07/2023 4:53 AM [facility] Platelets 175 150 - 450 x10(9)/L 05/07/2023 4:53 AM [facility] Automated NRBC 0 <=0 /100 WBC 05/07/2023 4:53 AM [facility] Blood Venipuncture / Unknown 05/07/2023 4:20 AM HAT LINING PASTER 05/07/2023 4:34 AM HAT LINING PASTER Shanta Kaur MD LAB_1 [place] [address], [facility] * (ABNORMAL) Basic Metabolic Panel (05/07/2023 4:20 AM HAT LINING PASTER) Sodium 141 136 - 145 mmol/L 05/07/2023 5:00 AM [facility] Potassium 3.3(L) 3.5 - 5.1 mmol/L 05/07/2023 5:00 AM [facility] Chloride 102 98 - 109 mmol/L 05/07/2023 5:00 AM [facility] CO2 26 20 - 29 mmol/L 05/07/2023 5:00 AM [facility] Anion Gap 13 7 - 16 mmol/L 05/07/2023 5:00 AM [facility] Calcium 9.4 8.4 - 10.4 mg/dL 05/07/2023 5:00 AM [facility] BUN 24 7 - 26 mg/dL 05/07/2023 5:00 AM [facility] Creatinine 2.29(H) 0.73 - 1.18 mg/dL 05/07/2023 5:00 AM [facility] Glucose 95 70 - 100 mg/dL 05/07/2023 5:00 AM [facility] Comment:The given reference range is for the fasting state. Non-fasting reference range for glucose is 70 - 180 mg/dL. GFR, Estimated 32(L) >60 mL/min/1.7 3m2 05/07/2023 5:00 AM [facility] Blood Venipuncture / Unknown 05/07/2023 4:20 AM HAT LINING PASTER 05/07/2023 4:35 AM [facility] Shanta Kaur MD LAB_1 Performing Organization Address City/State/[place] Co de Phone Number [facility] [address] [place] [address], [facility] documented in this encounter Visit Diagnoses Diagnosis [...] León RN - 05/08/2023 6:04 PM CST [facility] Discharge Note - Nursing Admission Date/Time: 05/07/2023 3:28 AM Attending MD: Patient discharged: [facility] room No 42 . Discharge Date: 05/08/2023 Discharge Time: 6:15 PM Patient accompanied by: self . Transported by: Wheelchair Valuables were taken home by patient: Yes Discharge instructions given and explained to patient: No, Discharge Patient Education Plan completed, taught, and provided to patient/caregiver at discharge:No, Pt went to [place] [address] Discussed medication risks with patient Patient understands [...] stored: N/A --- End of Report --- LINING PASTER * Plan of Care - Marimar León RN - 05/08/2023 6:04 PM CST [facility] Plan of Care Note Assessment: Pain and hallucinations Plan: Tele, CIWA, Psych consult, de-addiction consult. Subjective: I dont want to stay here if there is no treatment planned for me I still hear voices, they are more during the day and less during the nigh. Objective: Assumed cares from [id number]. A&Ox4, Independent in the room. Tele is [...] discharged from the unit and sent to [place] [address]. --- End of Report --- LINING PASTER * Plan of Care - Marimar León RN - 05/08/2023 11:28 AM CST [facility]. Practitioner Notified Note Name of Practitioner notified: French Thompson Time of Practitioner notification: 11:29 AM Reason: Jenny Santos, [id number] Pt wants to leave, wants us to take the PIV out. Can you talk to him?Thanks. Response: E page sent. LINING PASTER * Plan of Care - Sydni Horn RN - 05/08/2023 7:43 AM CST A&Ox4. Tele: SR. VSS on RA. Denies CP, SOB, dizziness, n/v. Pt c/o pain in lower back. Pt states acetaminophen is not effective. Voiding in the urinal. Ambulates SBA. Call light within reach. Assumed care of pt from 2300 to 0730 LINING PASTER * Plan of Care - Declan Cuellar [...] tylenol don't help. Call light within reach. LINING PASTER * Plan of Care - Declan Cuellar RN - 05/07/2023 8:39 PM CST [facility]. Practitioner Notified Note Name of Practitioner notified: Resident Time of Practitioner notification: 8:39 PM Reason: [id number]; T.Maurizio; pt states he wants his Seroquel. That he is normally on 800mg, states zyprexa don't help him. Advice, tks. Response: Paged -provider came to talk to pt. LINING PASTER * Plan of Care - Declan Cuellar RN - 05/07/2023 5:09 PM CST [facility]. Practitioner Notified Note Name of Practitioner notified: Resident Time of Practitioner notification: 5:10 PM Reason: [id number];K.Mai; Pt Trop game bakc at 1.02, urine random back positive of 3 drugs. Advice tks. Response: Paged - provider called - jaden molina, monitor for symptoms of chest pain and call provider. LINING PASTER * Plan of Care - Stephen Julien, PharmD - 05/07/2023 9:47 AM CST [facility] Pharmacy Medication History Note *I spoke with a nurse from [facility] ([phone]) about the patient's current medications* I was unable to interview the patient. This medication list was made based on recent pharmacy fill histories per pharmacy databases (). This medication list may not be 100% accurate. Use caution when ordering from this medication list. 1. Source(s) of Medication Information: , [facility] Nurse 2. Pertinent Information: Recent prior to admission medication changes: Medications added: The entire list Medications deleted: I deleted the old [employer] med list and started new Medications changed: None [facility] nurse states that the patient is NOT taking the following medications: Lisinopril 40mg tabs: 1 BID (last filled on 02/23/23 for #180) - ON HOLD per [place] nurse as of05/02/23 Diclofenac 75mg tabs: 1 BID (last filled on 01/07/23 for #180) - discontinued per [place] nurse 3. Outpatient Medications Marked as Taking: [...] reconciling home medications for hospital use. ? LINING PASTER * Triage Assessment Note - Dane Calloway RN - 05/07/2023 3:44 AM HAT LINING PASTER Patient presents [facility] [employer] for a legal blood draw but had a syncopal episode upon entering the department. Patient states they took x2 Xanax and Diclofenac at home then drove their vehicle. Patient denies alcohol tonight. Patient denies hitting their head or LOC . LINING PASTER documented in this encounter Admitting Diagnoses Diagnosis [...] of each other. Given 05/07/2023 10:25 PM HAT LINING PASTER 650 mg aspirin chewable tablet 324 mg 324 mg, Oral, ONCE, On Wed05/07/23 at 0530, For 1 dose Given 05/07/2023 5:15 AM HAT LINING PASTER 324 mg aspirin chewable tablet 81 mg 81 mg, Oral, DAILY, First dose on Wed05/08/23 at 0800, Until Discontinued Given 05/08/2023 8:27 AM HAT LINING PASTER 81 mg atorvastatin (LIPITOR) tablet 40 mg 40 mg, Oral, DAILY - 1999, First dose (after last modification) on Wed05/07/23 at 2000, Until Discontinued Given 05/07/2023 8:30 PM HAT LINING PASTER 40 mg bisacodyl (DULCOLAX) rectal suppository 10 [...] be swallowed whole. Given 05/07/2023 12:15 PM HAT LINING PASTER 150 mg cloNIDine (CATAPRES) tablet 0.1 mg [...] Indications: alcohol withdrawal Given 05/07/2023 9:07 PM HAT LINING PASTER 2.5 mg diazePAM (VALIUM) tablet 2.5-10 mg [...] 1515, Until Discontinued Given 05/08/2023 8:25 AM HAT LINING PASTER 1 mg Given 05/07/2023 3:02 PM HAT LINING PASTER 1 mg gabapentin (NEURONTIN) capsule 600 mg 600 mg, Oral, TID, First dose on Wed05/07/23 at 1400, Until Discontinued, Swallow whole. Given 05/08/2023 8:[address] 600 mg Given 05/07/2023 8:30 PM HAT LINING PASTER 600 mg Given 05/07/2023 3:02 PM HAT LINING PASTER 600 mg heparin 1000 UNIT/ML injection 4,000 [...] Acute Coronary Syndrome Given 05/07/2023 7:38 AM HAT LINING PASTER 4,000 Units heparin 25,000 Units in 0.45% [...] Coronary Syndrome Rate/Dose Verify 05/07/2023 11:15 AM HAT LINING PASTER 1,000 Units/hr 10 mL/hr Started 05/07/2023 7:40 AM HAT LINING PASTER 1,000 Units/hr 10 mL/hr lactated ringers IV bolus 1,000 mL 1,000 mL, Intravenous, Administer over 1 Hours, ONCE, On Wed05/07/23 at 0400, For 1 dose Started 05/07/2023 4:25 AM HAT LINING PASTER 1,000 mL lactated ringers IV bolus 1,000 mL 1,000 mL, Intravenous, Administer over 1 Hours, ONCE, On Wed05/07/23 at 0530, For 1 dose Started 05/07/2023 5:06 AM HAT LINING PASTER 1,000 mL lidocaine (ASPERCREAM) 4 % patch 1 Patch 1 Patch, Transdermal, DAILY, First dose on Wed05/07/23 at 1215, Until Discontinued, Apply patch to hip. Patch may remain in place for up to 12 hours in any 24 hour period, i.e. patches placed at 0800 should be removed at 2000. May cut patch to appropriate size. Patch Applied 05/08/2023 8:25 AM HAT LINING PASTER 1 Patch Back Patch Applied 05/07/2023 12:15 PM HAT LINING PASTER 1 Patch Back melatonin tablet 6 mg 6 mg, Oral, HS PRN, Sedation, Starting on Wed05/07/23 at 1114, Until 05/08/23 at 1831 Given 05/07/2023 8:30 PM HAT LINING PASTER 6 m g methocarbamol (ROBAXIN) tablet 500 mg 500 mg, Oral, TID PRN, Muscle Spasms, Starting on Wed05/07/23 at 1942, Until 05/08/23 at 1831 Given 05/08/2023 8:28 AM HAT LINING PASTER 500 mg Given 05/07/2023 8:30 PM HAT LINING PASTER 500 mg metoclopramide (REGLAN) injection 5 mg [...] but not crushed. Given 05/08/2023 8:25 AM HAT LINING PASTER 12.5 mg Given 05/07/2023 12:15 PM HAT LINING PASTER 12.5 mg metoprolol succinate (TOPROL XL) extended release tablet 12.5 mg 12.5 mg, Oral, ONCE, On Wed05/08/23 at 1000, For 1 dose, Tablet may be split in half, but not crushed. Given 05/08/2023 12:06 PM HAT LINING PASTER 12.5 mg metoprolol succinate (TOPROL XL) extended [...] 1831, Max 10mg/24hrs Given 05/08/2023 12:06 PM HAT LINING PASTER 10 mg ondansetron (ZOFRAN) injection 4 mg [...] For 1 dose Given 05/07/2023 12:15 PM HAT LINING PASTER [address] (PROTONIX) tablet 40 mg 40 mg, Oral, DAILY AT 0600, First dose on 05/08/23 at 0600, Until Discontinued Given 05/08/2023 6:47 AM HAT LINING PASTER 40 mg polyethylene glycol (MIRALAX) oral powder [...] to completely dissolve. Given 05/07/2023 5:19 AM HAT LINING PASTER 40 mEq prochlorperazine (COMPAZINE) injection 10 mg [...] For 9 doses Started 05/08/2023 6:47 AM HAT LINING PASTER 400 mg Started 05/07/2023 10:22 PM HAT LINING PASTER 400 mg Started 05/07/2023 4:04 PM HAT LINING PASTER 400 mg thiamine (VITAMIN B-1) tablet 200 mg 200 mg, Oral, DAILY, First dose on 05/08/23 at 1500, Until Discontinued documented in this encounter Active and Recently Administered Medications Times are shown in HAT LINING PASTER. Scheduled Medication Order 05/06/2023 05/07/2023 05/08/2023 aspirin [...] Declan Cuellar RN) [id number] (Given - Provider: Mairmar León RN)1649 (Not Given - Provider: Marimar [...] (Patch Applied - Provider: Marimar León RN) 2 (Patch Removed - Provider: Sydni Horn RN - Comment: Patch not found on lower back; appears to have fallen off)08 (Patch Applied - Provider: Marimar León RN)2024 (Due: Patch Removed - Provider: Marimar León RN) lisinopril (ZESTRIL) tablet 10 mg 10 mg, Oral, DAILY, First dose on Wed05/07/23 at 1130, Until Discontinued, On hold since Wed05/07/2023 at 1114 until manually unheld 111 (Held by provider in Manage Orders - Provider: Jessica Braswell MD - Reason: Per Practitioner: Acute Kidney Injury)1130 (Automatically Held) 0800 (Automatically Held)1831 (Unheld by provider in Manage Orders - Provider: Inpatient Template [facility]) metoprolol succinate (TOPROL XL) extended release tablet [...] in Manage Orders - Provider: Inpatient Template [facility]) Continuous Medication Order 05/06/2023 05/07/2023 05/08/2023 heparin [...] Baker RN)1115 (Rate/Dose Verify - Provider: Marimar León, LAVERN - Comment: pt just admitted to the [...] Q30MIN PRN, Alcohol Withdrawal Symptoms, Starting on 05/07/23 at 1444, Until 05/08/23 at 1831, If [...] Vomiting, Starting on Wed05/07/23 at 1114, Until 3/2/24 at 1831, Give 1st line medications, then [...] COVID19 05/07/2023 05/07/2023 05/07/2023 10:3 4 AM HAT LINING PASTER documented as of this encounter Care Teams Rim Turning Machine Operator Relationship Specialty Start Date End Date Briana Vazquez PA-C [address] [place] [address] PCP - General Physician Hand Clerical Verifier 11/29/19 documented as of this encounter
--- OUTSIDE RECORDS SUMMARY | 2023-07-22 15:07 | XMS_ITS | Encounter Summary ---
Author Name Unknown Organization [facility] Address [address], [place] [address] Care Team Providers Care Scow Derrick Operator Name Role Phone Briana Vazquez PA-C Primary Care Provider [phone] Reason for Visit * (Routine) - Incomplete Specialty Diagnoses / Procedures Referred By Pinky t Referred To Contact Procedures POC Basic Cardiac Shanta Kaur MD [address] [place] [address] Referral ID Status Reason Start Date Expiration Date V isits Requested Visits Authorized [id number] Incomplete 05/07/2023 08/05/2024 1 1 Encounter Details Date Type Department Care Team (Late st Contact Info) Description 05/07/2023 5:15 AM JOB BOSS Ancillary Procedure [facility] P[facility] ED [address] [place] [address] [id number] Social History Tobacco Use Types Packs/Day Years [...] US BASIC CARDIAC Routine 05/07/2023 5:13 AM JOB BOSS documented in this encounter Results * POC US Basic Cardiac (05/07/2023 5:13 AM JOB BOSS) Anatomical Region Laterality Modality Chest, Cardiac, US Cardiac Other Narrative 05/07/2023 11:08 AM JOB BOSS Aaron Patterson MD ? 05/07/2023 ??2:31 PM [facility] Point of Care Ultrasound Interpretation POC US Basic Cardiac Date/Time: 05/07/2023 11:08 AM Performed by: Aaron Patterson MD Authorized by: Shanta Kaur MD ?? Point of Care Ultrasound: Basic Cardiac Indications: Shortness of Breath and Syncope Window: Adequate for full imaging and interpretation Findings/ Impression (Within the context of limited hyrhj-hy-pwsa ultrasound): Mildly Depressed LV Function, Right Ventricle Enlarged with positive D sign on parasternal short axis view concerning for elevated right-sided pressures, No Pericardial Effusion, and IVC Dilated Shanta Kaur MD RAD POC US documented in this encounter Visit Diagnoses Not on filedocumented in this encounter Care Teams Scow Derrick Operator Relationship Specialty Start Date End Date Briana Vazquez PA-C [address] [place] [address] PCP - General Physician Sharepoint Web Developer 11/29/19 documented as of this encounter
--- OUTSIDE RECORDS SUMMARY | 2023-07-22 15:07 | XMS_ITS | Encounter Summary ---
Author Name Unknown Organization [facility] Address [address], [place] [address] Care Team Providers Care Brand Marketing Coordinator Name Role Phone Briana Vazquez PA-C Primary Care Provider [phone] Reason for Referral * Consult/Transfer Care (Routine) - Closed Specialty Diagnoses / Procedures Referred By Pinky osorio Referred To Contact Diagnoses Encounter for long-term (current) [place] [address] [place] [address] Referral ID Status Reason Start Date Expiration Date Visits Re quested Visits Authorized [id number] Closed 12/30/2016 01/30/2017 1 1 Scheduling Instructions Your provider has recommended you to follow up with your Primary Lead Driver. If you are currently seeing a [facility] provider for your primary care needs, a greenhouse florist will contact you within the next 3 business days to assist you in setting up this appointment. To schedule your appointment you may call [phone]. We suggest you call your health insurance [...] You can schedule your appointment online at [email or web address] or by calling the appointment center at the phone number listed above. Thank you for choosing [facility]. Tanna Yen RN [facility] Nurses Encounter Details Date Type Department Care Team (Late st Contact Info) Description 12/29/2016 Refill Order [facility] [address] [place] [address] [place] [address] [place] [address] Social History Tobacco Use Types Packs/Day Years [...] COVID19 05/07/2023 05/07/2023 05/07/2023 10:3 4 AM WOOD TYPE CUTTER documented as of this encounter Care Teams Brand Marketing Coordinator Relationship Specialty Start Date End Date Briana Vazquez PA-C [address] [place] [address] PCP - General Physician Director Of Strategic Communications 11/29/19 documented as of this encounter
--- OUTSIDE RECORDS SUMMARY | 2023-07-22 15:07 | XMS_ITS | Encounter Summary ---
Author Name Unknown Organization [facility] Address [address], [place] [address] Care Team Providers Care Industrial Engineering Technician Name Role Phone Briana Vazquez PA-C Primary Care Provider [phone] Encounter Details Date Type Department Care Team [...] COVID19 05/07/2023 05/07/2023 05/07/2023 10:3 4 AM SPRAY DRIER OPERATOR HELPER documented as of this encounter Care Teams Industrial Engineering Technician Relationship Specialty Start Date End Date Briana Vazquez PA-C [address] [place] [address] PCP - General Physician Clam Dredger 11/29/19 documented as of this encounter
--- OUTSIDE RECORDS SUMMARY | 2023-07-22 15:07 | XMS_ITS | Encounter Summary ---
Author Name Unknown Organization [facility] Address [address] [place] [address] Care Team Providers Care Food Processor Name Role Phone Briana Vazquez PA-C Primary Care Provider [phone] Reason for Visit * Auth/Cert (Routine) Specialty [...] Expiration Date Visits Re quested Visits Authorized [id number] 1 1 Encounter Details Date Type Department Care Team (Late st Contact Info) Description 05/07/2023 5:30 AM PROPOSAL ANALYST Ancillary Procedure [facility] [address] [address] Social History Tobacco Use Types Packs/Day Years [...] CONT PE STUDY STAT 05/07/2023 5:47 AM PROPOSAL ANALYST documented in this encounter Visit Diagnoses Not on filedocumented in this encounter Administered Medications Inactive Administered Medications - up to 3 most recent administrations Medication Order MAR Action Action Date Dose Rate Site iohexol (OMNIPAQUE 350) 350 MG/ML injection 100 mL 100 mL, Intravenous, ONCE, On Wed05/07/23 at 0615, For 1 dose Given 05/07/2023 5:48 AM PROPOSAL ANALYST 100 mL documented in this encounter Care Teams Food Processor Relationship Specialty Start Date End Date Briana Vazquez PA-C [address] [place] [address] PCP - General Physician Jewel Bearing Polisher 11/29/19 documented as of this encounter
--- OUTSIDE RECORDS SUMMARY | 2023-07-22 15:07 | XMS_ITS | Encounter Summary ---
Author Name Unknown Organization [facility] Address [address] [place] [address] Care Team Providers Care Steamboat Inspector Name Role Phone Briana Vazquez PA-C Primary Care Provider [phone] Reason for Visit * Auth/Cert (Routine) Specialty [...] Expiration Date Visits Re quested Visits Authorized [id number] 1 1 Encounter Details Date Type Department Care Team (Late st Contact Info) Description 05/07/2023 4:45 PM SLITTER SCORER CUT OFF OPERATOR Ancillary Procedure [facility] Ultrasound [address] [place] [address] Social History Tobacco Use Types Packs/Day Years [...] W BLADDER Routine 05/07/2023 8: 19 PM SLITTER SCORER CUT OFF OPERATOR documented in this encounter Results * US Renal W Bladder (05/07/2023 8:19 PM SLITTER SCORER CUT OFF OPERATOR) Anatomical Region Laterality Modality Abdomen, Pelvis Ultrasound 05/07/2023 8:19 PM SLITTER SCORER CUT OFF OPERATOR Narrative 05/07/2023 8:22 PM SLITTER SCORER CUT OFF OPERATOR EXAM: US RENAL W BLADDER LOCATION: [facility] DATE: 05/07/2023 INDICATION: USAMA COMPARISON: None. TECHNIQUE: Routine Bilateral Renal and Bladder Ultrasound. FINDINGS: RIGHT KIDNEY: 13.4 cm. Normal without hydronephrosis or masses. LEFT KIDNEY: 15.1 cm. No hydronephrosis. Benign-appearing 2.2 cm cyst at the midpole. No follow-up needed. BLADDER: Normal. IMPRESSION: 1. ??No hydronephrosis. Procedure Note Ángel Zamora MD - 05/07/2023 EXAM: US RENAL W BLADDER LOCATION: [facility] DATE: 05/07/2023 INDICATION: USAMA COMPARISON: None. TECHNIQUE: Routine Bilateral Renal and Bladder Ultrasound. FINDINGS: RIGHT KIDNEY: 13.4 cm. Normal without hydronephrosis or masses. LEFT KIDNEY: 15.1 cm. No hydronephrosis. Benign-appearing 2.2 cm cyst atthe midpole. No follow-up needed. BLADDER: Normal. IMPRESSION: 1. No hydronephrosis. Zaki Velásquez MD [facility] documented in this encounter Visit Diagnoses Not on filedocumented in this encounter Care Teams Steamboat Inspector Relationship Specialty Start Date End Date Briana Vazquez, PAAshleyC [address] [place] [address] PCP - General Physician Copping Machine Operator 11/29/19 documented as of this encounter
--- OUTSIDE RECORDS SUMMARY | 2023-07-22 15:07 | XMS_ITS | Encounter Summary ---
Author Name Unknown Organization [facility] Address [address], [place] [address] Care Team Providers Care Outside Industrial Sales Representative Name Role Phone Briana Vazquez PA-C Primary Care Provider [phone] Encounter Details Date Type Department Care Team [...] COVID19 05/07/2023 05/07/2023 05/07/2023 10:3 4 AM RISK SPECIALIST documented as of this encounter Care Teams Outside Industrial Sales Representative Relationship Specialty Start Date End Date Briana Vazquez PA-C [address] [place] [address] PCP - General Physician Events Director 11/29/19 documented as of this encounter
--- OUTSIDE RECORDS SUMMARY | 2023-07-22 15:07 | XMS_ITS | Encounter Summary ---
Author Name Unknown Organization [facility] Address [address] [place] [address] Care Team Providers Care Collar Padder Blindstitch Name Role Phone Briana Vazquez PA-C Primary Care Provider [phone] Encounter Details Date Type Department Care Team (Late st Contact Info) Description 07/29/2016 Refill Order [facility] [address] [place] [address] [place] [address] [place], [place] [id number] Social History Tobacco Use Types Packs/Day Years [...] COVID19 05/07/2023 05/07/2023 05/07/2023 10:3 4 AM FINANCIAL SYSTEMS ANALYST documented as of this encounter Care Teams Collar Padder Blindstitch Relationship Specialty Start Date End Date Briana Vazquez PA-C [address] [place] [address] PCP - General Physician Sustainability Officer 11/29/19 documented as of this encounter
== END 2023-07-18 15:40 | disposition home or self-care (01) ==
LOC: AMB 07-22 15:03
PROVIDERS: PCP Family Medicine; Visit Provider Family Medicine
DX: F29 Unspecified psychosis not due to a substance or known physiological condition (principal); R44.1 Visual hallucinations
CPT/HCPCS: A0425; A0427

== ENCOUNTER 2023-07-18 16:13 | Emergency (ER) | payer OTHER, MEDICAID, SELFPAY ==
[2023-07-18 16:22] VITALS: BP 138/108; PULSE 130; RESP 32; TEMP 37.3; O2SAT 97; BMI 23.1
[2023-07-18] MEDS: OLANZapine 5 MG/ML inj 10 MG IM (16:45)
[2023-07-18 16:47] VITALS: O2SAT 97
--- NOTE | 2023-07-18 16:49 | ED_ITS ---
HPI - General Adult General Chief complaint: Psychiatric Problem/Disorder Stated complaint: hallucinations Time Seen by Provider: 07/18/23 16:30 History of Present Illness HPI narrative: A 57 year white male with history of marijuana abuse, alcohol abuse, methamphetamine abuse, posttraumatic stress disorder, schizophrenia presents with worsening mental status over the last few days per family. EMS brought the patient in after family complained that he was becoming more paranoid and having trouble moving around he was laying on the floor when EMS got there. He was able to walk for EMS. He really was not complaining of anything he did get IM Ativan. Here in the ER he is very red faced agitated looking about the room in a real paranoid fashion. He will ask for Gatorade but will not really answer any other questions. Questioning seems to agitate him. Related Data Home Medications Medication Instructions Recorded Confirmed calcium 600 mg-D3 20 mcg-magnesium tab PO 11/16/22 04/19/23 40 ss-[id number] chew tablet multivitamin (Daily Multi-Vitamin 1 tab PO QDAY 11/16/22 04/19/23 tablet) loperamide 2 mg tablet (Imodium 2 mg PO Q6H PRN 12/15/22 04/19/23 A-D) propranolol 10 mg tablet 10 mg PO BID 03/11/23 04/19/23 trazodone 100 mg tablet 100 mg PO QHS 03/11/23 04/19/23 Previous Rx's Medication Instructions Recorded tamsulosin 0.4 mg capsule (Flomax) 0.4 mg PO QDAY #90 caps 06/19/22 lisinopril 40 mg tablet 40 mg PO BID #180 tabs 10/16/22 atorvastatin 20 mg tablet 20 mg PO QDAY #90 tabs 11/02/22 omeprazole 20 mg capsule,delayed 20 mg PO QDAY #90 caps 11/11/22 release desonide 0.05 % topical cream 1 applic topical BID #60 grams 11/16/22 valacyclovir 1 gram tablet 1,000 mg PO QDAY #90 tabs 12/14/22 testosterone cypionate 200 mg/mL 200 mg IM Q2W #6 mL 01/06/23 intramuscular oil (Depo-Testosterone) prazosin 2 mg capsule 2 mg PO QPM #90 caps 01/07/23 gabapentin 600 mg tablet 600 mg PO TID #270 tabs 02/18/23 folic acid 1 mg tablet 1 mg PO DAILY #30 tabs 03/14/23 thiamine mononitrate (vit B1) 100 100 mg PO Q24H #30 tabs 03/14/23 mg tablet (Vitamin B-1 (mononitrate)) ropinirole 2 mg tablet 2 mg PO BID #180 tabs 03/22/23 escitalopram oxalate 20 mg tablet 10 - 20 mg (0.5 - 1 x 20 mg) PO 04/19/23 (Lexapro) QDAY #30 tabs metoprolol succinate 100 mg 100 mg PO QDAY #90 ea 05/06/23 capsule sprinkle, ext. release 24 hr cyclobenzaprine 10 mg tablet 10 mg PO TID PRN muscle spasm #90 05/25/23 tabs quetiapine 400 mg tablet (Seroquel) 800 mg (2 x 400 mg) PO QHS #60 tabs 06/04/23 Allergies Allergy/AdvReac Type Severity Reaction Status Date / Time valproic acid AdvReac Intermediate excessive Verified 04/19/23 11:15 sedation naltrexone AdvReac Unknown Verified 04/19/23 11:15 Review of Systems Status of ROS: Reports: 6 or more systems reviewed and unremarkable except as noted in History and below [facility] Medical History (Updated 07/18/23 @ 16:59 by Sai Scruggs MD) Marijuana abuse ?F12.10 - Cannabis abuse, uncomplicated (ICD-10) Primary hypertension ?I10 - Essential (primary) hypertension (ICD-10) Mixed hyperlipidemia ?E78.2 - Mixed hyperlipidemia (ICD-10) Rupture of right biceps tendon ?S46.211A - Strain of muscle, fascia and tendon of other parts of biceps, right arm, initial encounter (ICD-10) 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) ?F15.21 - Other stimulant dependence, in remission (ICD-10) Allergic rhinitis ?J30.9 - Allergic rhinitis, unspecified (ICD-10) Seborrheic dermatitis ?L21.9 - Seborrheic dermatitis, unspecified (ICD-10) Chronic pain of both shoulders ?M25.511 - Pain in right shoulder (ICD-10) ?M25.512 - Pain in left shoulder (ICD-10) ?G89.29 - Other chronic pain (ICD-10) BPH (benign prostatic hyperplasia) ?N40.0 - Benign prostatic hyperplasia without lower urinary tract symptoms (ICD-10) Spondylosis of cervical spine with radiculopathy (09/06/19) ?M47.22 - Other spondylosis with radiculopathy, cervical region (ICD-10) Restless legs syndrome ?G25.81 - Restless legs syndrome (ICD-10) Posttraumatic stress disorder ?F43.10 - Post-traumatic stress disorder, unspecified (ICD-10) Photokeratitis of both eyes (07/31/18) ?H16.133 - Photokeratitis, bilateral (ICD-10) Insomnia ?G47.00 - Insomnia, unspecified (ICD-10) Hypogonadism in male ?E29.1 - Testicular hypofunction (ICD-10) History of traumatic rupture of spleen ?Z87.828 - Personal history of other (healed) physical injury and trauma (ICD-10) History of psychoactive substance use disorder ?Z87.898 - Personal history of other specified conditions (ICD-10) History of migraine ?Z86.69 - Personal history of other diseases of the nervous system and sense organs (ICD-10) History of gastroesophageal reflux (GERD) ?Z87.19 - Personal history of other diseases of the digestive system (ICD-10) History of alcohol dependence ?F10.21 - Alcohol dependence, in remission (ICD-10) Genital herpes simplex ?A60.00 - Herpesviral infection of urogenital system, unspecified (ICD-10) Gastroesophageal reflux disease (05/16/01) ?K21.9 - Gastro-esophageal reflux disease without esophagitis (ICD-10) Erectile dysfunction ?N52.9 - Male erectile dysfunction, unspecified (ICD-10) 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 - Nightmare disorder (ICD-10) Surgical History (Updated 05/02/23 @ 20:33 by Ángel Massey MD) History of arthroscopy of right shoulder (01/13/23) ?Z98.890 - Other specified postprocedural states (ICD-10) S/P arthroscopy of right shoulder (02/11/22) ?Z98.890 - Other specified postprocedural states (ICD-10) History of spinal surgery (1999) ?Z98.890 - Other specified postprocedural states (ICD-10) Status post right rotator cuff repair ?Z98.890 - Other specified postprocedural states (ICD-10) History of surgery on arm ?Z98.890 - Other specified postprocedural states (ICD-10) H/O left wrist surgery ?Z98.890 - Other specified postprocedural states (ICD-10) History of fusion of lumbar spine ?Z98.1 - Arthrodesis status (ICD-10) History of cervical spinal arthrodesis (2019) ?Z98.1 - Arthrodesis status (ICD-10) History of bunionectomy of right great toe (10/27/04) ?Z98.890 - Other specified postprocedural states (ICD-10) Social History (Updated 03/12/23 @ 13:29 by Martha Red MD) Narrative: Lives with mother (Kathy Alvarado - medical decision maker if needed). Single, 2 kids, one son committed suicide, non-smoker, ETOH overuse (24 beers in one sitting most days of the week). Requesting Full Code status. What is your current living situation?: unable to answer Problems where you live: unable to answer Problems where you live details: N/A In the past 12 months, utilities in danger of being shut off: unable to answer In past 12 months, lack of transportation kept you from medical appts, meetings, work, or getting things needed for daily living: unable to answer In the past 12 mos, have been you worried that your food would run out before you had money to buy more?: unable to answer In the past 12 mos, the food you bought just didn't last and you didn't have money to buy more?: unable to answer Highest level of school completed/degree received: don't know Smoking Status: Former smoker How often do you have a drink containing alcohol: 4 or more times a week Alcohol type: beer How many standard drinks containing alcohol do you have on a typical day: 10 or more How often do you have six or more drinks on one occasion: Daily or almost daily AUDIT-C Alcohol total score: 12 Non-prescribed substance use: marijuana (any form) and amphetamines/methamphetamines Caffeine: Yes How often does anyone, including family, friends and others, physically hurt you : unable to answer How often does anyone, including family, friends and others, insult or talk down to you: unable to answer How often does anyone, including family, friends and others, threaten you with harm: unable to answer How often does anyone, including family, friends and others, scream or curse at you: unable to answer Little interest or pleasure in doing things: more than half the days Feeling down, depressed, or hopeless: more than half the days Exam Narrative: Exam Narrative: Objective: Patient's temp is 99? pulse is 130 and regular rest rate 32 blood pressure 138/108 O2 sat 97% on room air He has reddened in the face looking about the room he appears alert, he speaks normally when he S for Gatorade. Patient has no facial asymmetry He does not answer when asked him about any illicit drug use. No facial asymmetry no scleral icterus he moves his extraocular moves muscles well Neck is supple nontender Chest back abdomen pelvis lower extremities unremarkable he has an old healing says superficial laceration of left thigh distal CMS intact Neurologic grossly nonfocal he is moving all extremities see does not cooperate with asking to squeeze my hand however He has good peripheral perfusion, good color. Skin is warm and dry and periphery. Const: Vital Signs, click to edit/add: Vital Signs - 24 hr 07/18/23 16:22 07/18/23 16:47 07/18/23 18:01 Temperature 99.1 F Pulse Rate 120 H Pulse Rate [Pulse Oximeter] 130 H Respiratory Rate 32 H 14 Blood Pressure 144/89 H Blood Pressure [Ri ght Upper Arm] 138/108 H Pulse Oximetry 97 97 92 Oxygen Delivery Me thod Room Air 07/18/23 18:31 07/18/23 19:01 Temperature Pulse Rate 123 H 124 H Pulse Rate [Pulse Oximeter] Respiratory Rate 16 14 Blood Pressure 151/102 H Blood Pressure [Ri ght Upper Arm] Pulse Oximetry 95 96 Oxygen Delivery Me thod Course Vital Signs Vital signs: Initial Vital Signs Temperature 99.1 F 07/18/23 16:22 Temperature Source Temporal Artery Scan 07/18/23 16:22 Pulse Rate 130 H 07/18/23 16:22 Pulse Rhythm Regular 07/18/23 16:22 Respiratory Rate 32 H 07/18/23 16:22 Blood Pressure 138/108 H 07/18/23 16:22 Blood Pressure Mean 118 H 07/18/23 16:22 Blood Pressure Position Supine 07/18/23 16:22 Pulse Oximetry 97 07/18/23 16:22 Oxygen Delivery Method Room Air 07/18/23 16:22 Vital Signs Temperature 99.1 F 07/18/23 16:22 Pulse Rate 130 H 07/18/23 16:22 Respiratory Rate 32 H 07/18/23 16:22 Blood Pressure 138/108 H 07/18/23 16:22 Pulse Oximetry 97 07/18/23 16:22 Oxygen Delivery Method Room Air 07/18/23 16:22 Temperature 99.1 F 07/18/23 16:22 Pulse Rate 124 H 07/18/23 19:01 Respiratory Rate 14 07/18/23 19:01 Blood Pressure 151/102 H 07/18/23 18:31 Pulse Oximetry 96 07/18/23 19:01 Oxygen Delivery Method Room Air 07/18/23 16:22 Medications Administered Medications: Discontinued Medications Generic Name Dose Route Start Last Admin Trade Name Freq PRN Reason Stop Dose Admin Sodium Chloride 1,000 mls @ 6,000 mls/hr 07/18/23 17:00 07/18/23 19:23 0.9 % Sodium Chloride 1000 Ml IV 07/18/23 17:09 Infused .Q10M GAVI Infusion Piperacillin Sod/Tazobactam 100 mls @ 200 mls/hr 07/18/23 17:39 07/18/23 19:13 Sod 4.5 gm/ Sodium Chloride IVPB 07/18/23 17:40 200 mls/hr ONCE ONE Administration Lorazepam 1 mg 07/18/23 16:47 07/18/23 18:02 Lorazepam 2 Mg/Ml Inj IVP 07/18/23 16:48 Not Given ONCE ONE Lorazepam 2 mg 07/18/23 17:14 07/18/23 17:45 Lorazepam 2 Mg/Ml Inj IVP 07/18/23 17:15 2 mg ONCE ONE Administration Lorazepam 2 mg 07/18/23 17:55 07/18/23 17:57 Lorazepam 2 Mg/Ml Inj IVP 07/18/23 17:56 2 mg ONCE ONE Administration Olanzapine 10 mg 07/18/23 17:54 07/18/23 16:45 Olanzapine 5 Mg/Ml Inj IM 07/18/23 17:55 10 mg ONCE ONE Administration Medical Decision Making MDM Narrative Medical decision making narrative: [age] year white male with mental health disorder and chronic drug abuse, presents with increasing paranoid behavior and agitation. He is pretty much nonresponsive at this point but he is awake and alert will talk normally. Been no history of trauma. They are all so was some pill bottles in his basement that are uncertain if there his or someone else's. He will have a urine drug screen Tylenol aspirin level. Will also get electrolytes labs, cardiac workup. First before any this can happen we need to get a Zyprexa 10 mg dose in him to see if it will help settle his mental health. At that point the patient really needs medical Psychiatry and I think will contact [facility] regarding potential transfer. Review labs in treatments above as able. Addendum 5 ft 50 6:00 p.m. the patient is starting to talk a little more he still very agitated, he states ?I wish I had a new brain?. He sounds pretty paranoid, he apparently had a large amount shaw in his pocket as well. The patient still is agitated reddened in the face, and will get agitated when asking questions. He does however deny taking extra pills or overdosing on medicines, he does not answer when asked about illicit drugs. He has taken Xanax in the past and he is asking for ?Xanax and I need 3 pills. ?the patient will be given another 2 mg IV Ativan as he is awake alert I think he will tolerate that I think we need to help him sedate. I think also he is going to be a psychiatric issue as well as medical clearance issue possibly toxic she will discuss with [facility]. Addendum 6:36 p.m.: Discussed with Dr. Chacon ER physician at [facility] and who kindly accepts in transfer. We will transfer ER to ER. Given Mr. Hannah is potential for tox injury, sepsis with his elevated white count, and the fact that he was found on the ground with potential head injury, I feel the patient needs a ICU type workup more than I can provide here including psychiatry consultation, toxicology consultation and further trauma workup and IV antibiotics and infection assessment. The patient has been blood cultured had have given IV Zosyn. Also the patient does have what appears to be track like peck in his arm and he certainly could have sepsis and I think antibiotics are appropriate. Transfer to higher level care is also appropriate. Dr. Chacon kindly accepts at [facility]. Patient is in stable condition for transfer. I do not think he needs airway management prior to transfer given his stability. Lab Data Labs: Lab Results 07/18/23 07/18/23 07/18/23 Range/Units 16:35 16:39 18:15 WBC 20.21 H (4.50-11.00) K/uL RBC 6.86 H (4.30-5.90) m/uL Hgb 20.3 H (13.5-17.5) gm/dL Hct 58.3 H (37.0-53.0) % MCV 85 (80-100) fL MCH 30 (26-34) pg MCHC 35 (32-36) gm/dL RDW Coeff of Negro 14.9 (11.5-15.5) % Plt Count 270 (140-440) K/uL Neut % (Auto) 78.5 H (42.0-72.0) % Lymph % (Auto) 6.7 L (20-44) % Mckean % (Auto) 14.4 H (0.0-11.0) % Eos % (Auto) 0.0 (0.0-7.0) % Baso % (Auto) 0.1 (0.0-3.0) % Neut # (Auto) 15.90 H (1.7-7.0) K/uL Lymph # (Auto) 1.40 (0.90-2.90) K/uL Mckean # (Auto) 2.90 H (0.00-0.90) K/UL Eos # (Auto) 0.00 (0.00-0.50) K/uL Baso # (Auto) 0.00 (0.00-0.30) K/uL Abs Immat Gran (auto) 0.10 (0.00-0.30) K/uL Imm/Tot Granulo (auto) 0.3 % Sodium 147 (135-149) mmol/L Potassium 3.4 L (3.6-5.1) mmol/L Chloride 108 (96-114) mmol/L Carbon Dioxide 20 (20-32) mmol/L Anion Gap 19 H (7-15) mEq/L BUN 46 H (7-30) mg/dL Creatinine 3.5 H (0.5-1.5) mg/dL Estimated Creat Clear 27.64 Estimated GFR 20 ml/min Glucose 150 H (60-115) mg/dL Lactate 2.5 H (0.5-1.9) mmol/L Calcium 10.3 (8.4-10.6) mg/dL Total Bilirubin 3.0 H (0.1-1.5) mg/dL Direct Bilirubin 0.2 (0.0-0.5) mg/dL AST 53 H (12-35) U/L ALT 38 (4-50) U/L Alkaline Phosphatase 87 (40-150) U/L C-Reactive Protein 1.7 H (0.5-1.0) mg/dL NT-Pro-B Natriuret Pep 408 pg/mL Total Protein 9.0 H (6.0-8.3) g/dL Albumin 5.1 H (3.3-5.0) g/dL Salicylates < 1.0 L (1.0-10) mg/dL Acetaminophen < 10.0 L (10.0-30.0) ug/mL Ethyl Alcohol < 0.01 L (0.01-0.03) % POC Troponin I 0.04 (0.01-0.04) ng/ml Discharge Plan Discharge Clinical Impression: Agitation, Schizophrenia, Acute paranoia Patient Disposition: Xfer Other Prescriptions: No Action multivitamin [Daily Multi-Vitamin] Tablet 1 tab PO QDAY Ca carb-D3-mag [id number]-Zn 600 mg-20 mcg- 40 mg-0.25 mg tablet,chewable PO desonide 0.05 % cream 1 applic topical BID Qty: 60 1RF loperamide [Imodium A-D] 2 mg tablet 2 mg PO Q6H PRN prazosin 2 mg capsule 2 mg PO QPM Qty: 90 3RF lisinopril 40 mg tablet 40 mg PO BID Qty: 180 1RF Hold Instructions: Resume on 03/22/23. Hold until you see your PCP for labs atorvastatin 20 mg tablet 20 mg PO QDAY Qty: 90 3RF escitalopram oxalate [Lexapro] 20 mg tablet 10 - 20 mg PO QDAY Qty: 30 1RF Rx Instructions: 1/2 QD x 2 weeks then 1 QD propranolol 10 mg tablet 10 mg PO BID trazodone 100 mg tablet 100 mg PO QHS thiamine mononitrate (vit B1) [Vitamin B-1 (mononitrate)] 100 mg Tablet 100 mg PO Q24H Qty: 30 0RF folic acid 1 mg tablet 1 mg PO DAILY Qty: 30 2RF tamsulosin [Flomax] 0.4 mg capsule 0.4 mg PO QDAY Qty: 90 3RF omeprazole 20 mg capsule,delayed release(DR/EC) 20 mg PO QDAY Qty: 90 3RF valacyclovir 1 gram tablet 1,000 mg PO QDAY Qty: 90 0RF testosterone cypionate [Depo-Testosterone] 200 mg/mL oil 200 mg IM Q2W Qty: 6 1RF gabapentin 600 mg tablet 600 mg PO TID Qty: 270 1RF ropinirole 2 mg tablet 2 mg PO BID Qty: 180 2RF metoprolol succinate 100 mg capsule,sprinkle,ER 24hr 100 mg PO QDAY Qty: 90 3RF cyclobenzaprine 10 mg tablet 10 mg PO TID PRN (Reason: muscle spasm) Qty: 90 5RF quetiapine [Seroquel] 400 mg tablet 800 mg PO QHS Qty: 60 1RF Stand Alone Forms: MyHealth Info Instructions
--- OUTSIDE RECORDS SUMMARY | 2023-07-18 17:00 | XMS_ITS | Clinical Summary ---
Author Name Unknown Organization [facility] Address [place], [place] [address] Care Team Providers Care Surgical Specialist Name Role Phone Ángel Massey MD Primary Care Provider + Allergies No known active allergies Medications Medication Sig Dispensed Refills Start Date End Date Status traZODone (DESYREL) 100 mg tabletIndications: Schizophrenia, unspecified type (HC) Take 2 tablets by mouth at bedtime. 60 tablet 10/07/2015 Active omeprazole (PRILOSEC) 20 mg Delayed-Release capsuleIndications :Gastroesophageal reflux disease without esophagitis Take 1 capsule by mouth once daily before a meal. 30 capsule 10/07/2015 Active gabapentin (NEURONTIN) 600 mg tablet TAKE ONE TABLET BY MOUTH THREE TIMES DAILY 12/12/2018 Active tamsulosin (FLOMAX) 0.4 mg capsule TAKE ONE CAPSULE BY MOUTH DAILY 12/12/2018 Active atorvastatin (LIPITOR) 20 mg tablet Take 20 mg by mouth once daily. 08/07/2019 Active escitalopram oxalate (LEXAPRO) 10 mg tablet Take 10 mg by mouth once daily. 08/28/2019 Active prazosin (MINIPRESS) 2 mg capsule Take 2 mg by mouth at bedtime. 08/28/2019 Active buPROPion (WELLBUTRIN XL) 300 mg Extended-Release tablet Take 300 mg by mouth once daily. Active testosterone cypionate (DEPO-TESTOSTERONE ) 200 mg/mL injection Inject 200 mg intramuscular every 2 weeks. 09/02/2019 Active QUEtiapine (SEROQUEL) 100 mg tablet Take 200 mg by mouth at bedtime. 08/28/2019 Active diclofenac (VOLTAREN) 75 mg delayed-release tablet TAKE ONE TABLET BY MOUTH TWICE DAILY 03/05/2020 Active metoprolol succinate (TOPROL XL) 100 mg Sustained-Release tablet Take 100 mg by mouth once daily. 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 000 Resolved Problems Problem Noted Date Diagnosed Date Resolved Date DERMATITIS 04/14/2005 11/05/2005 RASH 04/14/2005 11/05/2005 SPRAIN - ANKLE 09/23/1999 11/05/2005 HERPES, GENITAL 04/08/1999 11/05/2005 Immunizations Name Administration Dates Next Due COVID-19 vaccine (Moderna 100mcg/0.5mL) PF, MDV 06/21/2020,05/24/2020 Hepatitis B (Adult) 12/10/2017,05/27/2017,2015 Influenza Virus, Unspecified 01/08/2006, 01/08/2005,01/04/2002,1999 Influenza, IIV3 (Age >=3 years) 01/09/20 06,01/08/2005,12/28/2002,2001,12/22/1999 Td (Age >=7 Years) 05/21/2003,07/22/1999 Td, Preservative Free (age > = 7 Years) 05/21/2003,07/22/1999 Tdap 09/14/2013,05/03/2012,05/01/2010 Zoster (Shingrix-RZV, recombinant) 05/09/2018, Family History Medical History Relation Name Comments Dementia Father Genetic Other 1 BACK PAIN Genetic Other 2 BACK PAIN~negat roxanna for anesthetic problems or CAD. Relation Name Status Comments Father Other 1 Other 2 Social History Tobacco Use Types Packs/Day Years Used Date Smoking Tobacco: Former Cigarettes Smokeless Tobacco: Never Comments:when he was 24 year s old he quit Alcohol Use Standard Drinks/Week Comments Yes 5 (1 standard drink = 0.6 oz pur e alcohol) 3-4x a week 2-3x at a time Social Connections Answer Date Recorded Frequency of Communication with Friends and Fami ly Not on file 03/08/2021 Financial Resource Strain Answer Date R ecorded Difficulty of Paying Living Expenses Not on file 03/08/2021 Difficulty of Paying Living Expenses Not on file 03/08/2021 Sex and Gender Information Value Date Recorded Sex Assigned at Not on file Gender Identity Not on file Sexual Orientation Not on file Obstetrics History Last Filed Vital Signs Vital Sign Reading Time Taken Comments Blood Pressure 164/84 10/01/2020 2:11 PM CDT Pulse 62 10/01/2020 2:11 PM CDT Temperature 36.8 ??C (98.2 ??F) 10/01/2020 2:11 PM CD T Respiratory Rate 14 09/08/2019 4:42 AM CDT [...] 15-65 1980 Hepatitis C screening for age 18-79 12/09/1983 Colonoscopy through age 75 2010 Lipids for age 45-75 2010 06/04/2003, 06/04/19 04 BMI (ht and wt on same day) for age 18+ 10/01/2021 10/01/2020, 07/19/2020 COVID-19 vaccine series (2022- season) 2022 06/21/2020, 05/24/2020 Tetanus booster 09/15/2023 09/14/2013, 04/09, 05/01/2010, Additional history exists Influenza for age 50-64 11/07/2023 11/03/20 06, 01/08/2006, 01/08/2005, Additional history exists Tdap Completed 09/14/2013, 04/09, 05/01/2010 Zoster (shingles) series for age 50+ Completed 05/09/2018, 05/27/2017 Pneumococcal series for age 6-64 Aged Out No longer eligible based on patient's age to complete this topic Medical Devices Implanted Type Area Tile Inspector Device Identifier Shelf Expiration Date Model / Serial / Lot [id number] 1cc Shauna Plus Paste Dbm Implanted:Qty: 1 on 09/07/2019 by Dane Wharton MD at [facility] Explanted:at [facility] (Quantity not on file) Spine [employer] Spine/Ortho 11/23/2020 [id number] / [id number] / Spacer Cerv [id number] [place] - [id number] Implanted:Qty: 1 on 09/07/2019 by Dane Wharton MD at [facility] Spine [employer] Spine/Ortho 04/06/2027 [id number] / / [id number] Spacer Cerv [id number] Vertestack Peek - [id number] Implanted:Qty: 1 on 09/07/2019 by Dane Wharton MD at [facility] Spine [employer] Spine/Ortho 10/28/2026 [id number]# / / [id number] Screw Cerv Ant 4x17mm [employer] Fa Slf Drill - [id number] Implanted:Qty: 2 on 09/07/2019 by Dane Wharton MD at [facility] Spine [employer] Spine/Ortho [id number]# / / Screw Cerv Ant 4x17mm [employer] Va Slf Drill - [id number] Implanted:Qty: 4 on 09/07/2019 by Dane Wharton MD at [facility] Spine [employer] Spine/Ortho [id number]# / / Plate Cerv 2lvl 45mm [place] Vision Elite Ant - [id number] Implanted:Qty: 1 on 09/07/2019 by Dane Wharton MD at [facility] Spine [employer] Spine/Ortho [id number] / / Procedures Procedure Name Priority Date/Time Associated Diagnosis Comments CHOLESTEROL,TOTAL Routine 06/04/2003 8:0 0 AM SALES ACCOUNT SPECIALIST from Last 3 Months or Most Recently Relevant to Health Maintenance Results * CHOLESTEROL,TOTAL (06/04/2003 8:00 AM SALES ACCOUNT SPECIALIST) CHOLESTEROLTOT AL 160 110 - 199 mg/dL 06/04/2003 8:00 AM SALES ACCOUNT SPECIALIST Narrative 08/19/2003 12:05 AM CDT Ordered by an unspecified provider. Other Clinical Staff CHEMISTRY from Last 3 Months or Most Recently Relevant to Health Maintenance Advance Directives * Full Code (Latest Code Status on File) Date Activated Date Inactivated Comments 09/07/2019 1:53 PM 09/08/2019 2:27 PM Question Answer Comments Code Status Discussion: Not DiscussedPer Advance Care Plan * Full Code Date Activated Date Inactivated Comments 09/07/2019 6:00 AM 09/07/2019 1:53 PM Question Answer Comments Code Status Discussion: Not DiscussedPer Advance Care Plan * Full Code Date Activated Date Inactivated Comments 09/24/2015 1:25 PM 10/07/2015 2:42 PM Care Teams Surgical Specialist Relationship Specialty Start Date End Date Ángel Massey MD [address] [place] [address] PCP - General Family Practice 06/26/19
--- OUTSIDE RECORDS SUMMARY | 2023-07-18 17:01 | XMS_ITS | Encounter Summary ---
Author Name Unknown Organization [facility] Address [address], [place] [address] Care Team Providers Care Wrinkle Chaser Name Role Phone Briana Vazquez PA-C Primary Care Provider [phone] Reason for Referral * Consult/Transfer Care (Routine) - New Request Specialty Diagnoses / Procedures Referred By Pinky osorio Referred To Contact Cardiology Diagnoses Elevated troponin Laurie Tineo PA-C [address] [place] [id number] Referral ID Status Reason Start Date Expiration Date V isits Requested Visits Authorized [id number] New Request 05/10/2023 08/08/2024 1 1 Scheduling Instructions Your clinician has recommended an appointment with [facility] Cardiology. You can quickly make your appointment online at [employer]schedule. You can also call [phone] for help scheduling your appointment. We suggest you call your health insurance company about your coverage and benefits for this appointment. Question Answer Appointment Urgency? Non-Urgent Reason for visit? elevated troponin during hospitalization Comments [facility] Specialty Clinic: [facility]; ( FAMILY OF CARE REFERRAL) [phone]; [address] [place] [id number] ERN CUTTER * Consult/Transfer Care (Routine) - New Request Specialty Diagnoses / Procedures Referred By Pinky osorio Referred To Contact Diagnoses S/P lumbar spinal fusion Laurie Tineo PA-C [address] [place] [id number] Referral ID Status Reason Start Date Expiration Date V isits Requested Visits Authorized [id number] New Request 05/10/2023 08/08/2024 1 1 Scheduling Instructions Your clinician has recommended an appointment for a pain consultation within [facility]. For scheduling at our [facility] or [place] location please call [phone]. To schedule at our [place] location call [phone]. Question Answer Appointment Urgency? Non-Urgent Consult for Comprehensive Pain Assessment Reason for visit? chronic back pain, lives in [place], [place] Outpatient Appt Need? Consult ERN CUTTER Reason for Visit * Auth/Cert (Routine) Specialty Diagnoses / Procedures Referred By Pinky osorio Referred To Contact Diagnoses Psychotic disorder ([facility]) . Referral ID Status Reason Start Date Expiration Date Visits Re quested Visits Authorized [id number] 1 1 Encounter Details Date Type Department Care Team (Latest Contact Info) Description 05/08/2023 6:31 PM PATTERN CUTTER - 05/10/2023 11:33 AM PATTERN CUTTER Hospital Encounter NE4 [address] [place] [address] Genet Crawley MD [address] [place] [address] S/P lumbar spinal fusion (Primary Dx); Elevated troponin Discharge Disposition: Home Social History Tobacco Use Types Packs/Day Years Used Date Smoking Tobacco: Former Cigarettes 0.5 3 Cigars Smokeless Tobacco: Never Comments:Occasional cigar Alcohol Use Standard Drinks/Week Comments Yes 0 (1 standard drink = 0.6 oz pur e alcohol) Rare Humiliation, Afraid, Rape, and Kick questionnair e Answer Date Recorded Fear of Current or Ex-Partner Not on file Emotionally Abused Not on file 05/07/2023 Within the last year, have y ou been kicked, hit, slapped, or otherwise physically hurt by your partner or ex-partner? No 05/07/2023 Within the last year, have y ou been raped or forced to have any kind of sexual activity by your partner or ex-partner? No 05/07/2023 Housing Stability Vital Sign Answer Leopoldo e Recorded In the last 12 months, was t here a time when you were not able to pay the mortgage or rent on time? No 05/07/2023 In the last 12 months, how many places have you lived? 1 05/07/2023 In the last 12 months, was t here a time when you did not have a steady place to sleep or slept in a long term (including now)? No 05/07/2023 Sex and Gender Information Value Date Recorded Sex Assigned at Not on file Gender Identity Not on file Sexual Orientation Not on file documented as of this encounter Last Filed Vital Signs Vital Sign Reading Time Taken Comments Blood Pressure 172/96 05/10/2023 7:55 AM PATTERN CUTTER Pulse 80 05/10/2023 7:55 AM PATTERN CUTTER Temperature 36.7 ??C (98 ??F) 05/10/2023 7:55 AM PATTERN CUTTER Respiratory Rate 18 05/10/2023 7:55 AM PATTERN CUTTER Oxygen Saturation 99% 05/10/2023 7:55 AM PATTERN CUTTER Inhaled Oxygen Concentration - - Weight 92.4 kg (203 lb 11.2 oz) 05/08/2023 6:34 PM PATTERN CUTTER Height 185.4 cm (6' 1) 05/08/2023 6:34 PM PATTERN CUTTER Body Mass Index 26.87 05/08/2023 6:34 PM PATTERN CUTTER documented in this encounter Discharge Summaries * Genet Crawley MD - 05/10/2023 8:20 AM CST [facility] DISCHARGE SUMMARY Admission Date and Time: 05/08/2023 6:42 PM Discharge Date: 05/10/2023 Attending Practitioner: Genet Crawley MD Discharge Diagnoses Principal Psychiatric Diagnoses: # 1: encephalopathy, multifactorial, resolved # 2: bipolar disorder, vs SCAD # 3: r/o substance induced psychosis Substance Use Disorders: Polysubstance use disorder (Alcohol, benzodiazepines, xanax, meth) Alchohol/BZ withdrawal From medical stay: chest pain, USAMA, syncope, hypokalemia, chronic back pain Reason for Hospitalization History of Present Illness taken from admission note: Nicanor Alvarado is a 57 y.o. Male who has been admitted for encephalopathy, bipolar disorder, polysubstance use disorder from medical floor (C61 transfer). The patient is being admitted on a 72 hour hold. Start Date/Time: 05/08/23 1251, End Date/Time: 05/20/23 0001 status. The patient carries a diagnosis of encephalopathy, bipolar disorder. He was on medical floor for chest pain, USAMA, encephalopathy, and concern for BZ withdrawal . He was deemed by psych consult service to not have decision making capacity at the time to sign out AMA dueto medical issues. He was placed on a hold and tx to NE4. Symptoms of the patient's current psychiat reza condition include arrest for DUI, disorganization, paranoia. The following is from the psych consult note from 05/07/23: Tom reports that he has been recently trying to get in to see a psychologist as well as recently started Lexapro. He mentions being on 10mg and then 20mg. He can't remember all of the medications he takes, but then says I really only took one full dose of Lexapro. He is unclear if he is on olanzapine and says he was prescribed that in 2016, but never picked up more than one prescription. He then says that I am on a whole host of medications. He says he picks them up from the pharmacy, but does not take them all. He states he doesn't get rid of them, but just wants to make sure he has extra. He mentions that recently he has been worried about his son because he is talking about suicide and this is why he wants to see a psychologist and was recently prescribed Lexapro. He mentions that he does not have SI, but that he feels like he might consider it if his son dies because then both of his sons would be . Tom mentions that over the past couple of weeks he has had a lot of difficulty sleeping and he reports increasing his amount of alcohol and xanax to help him sleep. He reports ordering Xanax online and usually taking 1mg, but he has upped it to 2mg recently. He states I'm just trying to drink more alcohol that way I can cut it back to 1 xanax). He also reports using marijuana every other day. He denies any history of alcohol withdrawal seizures, but states one time he had bad withdrawal when he was 24. He tells a story about mixing some liquor with sprite and how this got him really intoxicated. Tom also reports recently staying at a hotel and using methamphetamine recently. He states that this causes him to hear voices and have a tough time sleeping, which is why he has been using more xanax to sleep. He states that in his 20s there were times where he had increased energy and needed less sleep. He reports being fine with about 6 hours per night. He mentions a diagnosis of bipolar when he was in his 20's as well. He mentions that besides this he was hospitalized after the of his brother [id number] when he was not doing well. He is unable to give me a consistent history of what medicationshe has taken and is taking currently. Seen on rounds with SW. Pt is irritable but does cooperate with interview. He is oriented in all spheres. Is able to give a coherent account of events. He says he cannot trust the doctors because they were supposed to discharge him 2 days ago. He admits to drug/alcohol use. Attempted to discuss CD treatment, he is not very open to discussing this right now. He says he is not suicidal or homicidal. Denies any psychosis. Denies withdrawal sx. Says he is usually on seroquel 800 mg hs. Says he gets meds from a primary care doctor, Dr. Massey. He is most concerned about having 2 cars he needs to get out of impound (his son's and his own.) He says his son(adult) is at his mother's house. He lives with mother. He does not want staff here to call his mother. Says not interested and says he can call her himself. He says she knows he is in hospital. He denies chest pain or other medical symptoms. He is aware that [facility] will be seeing him. He shows no evidence of delirium. He is irritable, but less so after he got some prn valium. Denies seizurehistory. When asked about the xanax use, if he plans to stop after he leaves hospital, he says he is not sure. He has been through the DUI/treatment process I believe twice before, so he knows the drill. Chemical Dependency History, Past Psychiatric History, Family History and Past Medical History: SeeAdmission Note completed by Dr Crawley on 05/09/23. Lab Studies, EKG & other diagnostic testing Results for orders placed or performed during the hospital encounter of 05/08/23 Basic Metabolic Panel Result Value Ref Range Sodium 139 136 - 145 mmol/L Potassium 3.8 3.5 - 5.1 mmol/L Chloride 102 98 - 109 mmol/L CO2 26 20 - 29 mmol/L Anion Gap 11 7 - 16 mmol/L Calcium 10.1 8.4 - 10.4 mg/dL BUN 17 7 - 26 mg/dL Creatinine 1.30 (H) 0.73 - 1.18 mg/dL Glucose 84 70 - 100 mg/dL GFR, Estimated >60 >60 mL/min/1.73m2 Metabolic Monitoring 05/10/2023 Patient Declined : No Lipid Panel Cholesterol Date Value Ref Range Status 05/07/2023 91 0 - 199 mg/dL Final HDL Cholesterol Date Value Ref Range Status 05/07/2023 31 (L) >=40 mg/dL Final LDL, Calculated Date Value Ref Range Status 05/07/2023 45 <130 mg/dL Final Triglyceride Date Value Ref Range Status 05/07/2023 77 <=149 mg/dL Final Fasting Glucose or HgbA1C Glucose Date Value Ref Range Status 05/10/2023 84 70 - 100 mg/dL Final Comment: The given reference range is for the fasting state. Non-fasting reference range for glucose is 70 -180 mg/dL. Hemoglobin A1C Date Value Ref Range Status 06/21/2018 5.0 <=5.6 % Final Weight/BMI Estimated body mass index is 26.87 kg/m?? as calculated from the following: Height as of this encounter: 6' 1 (1.854 m). Weight as of this encounter: 92.4 kg (203 lb 11.2 oz). Wt Readings from Last 2 Encounters: 05/08/23 92.4 kg (203 lb 11.2 oz) 05/07/23 92.3 kg (203 lb 6.4 oz) Blood Pressure BP Readings from Last 1 Encounters: 05/10/23 (!) 172/96 I attest pt did receive metabolic monitoring. Hospital Course The multidisciplinary treatment team met (RN, OT, community mental health social worker, Physician) on a daily basis to discuss patient care and treatment planning. The psychiatric inpatient setting provided close nursing supervision and access to multiple treatment modalities and programming (group therapy, OT, one-to-one therapy.) Patient support systems such as family, assistant case manager, and other care providers were contacted as appropriate for collateral information and treatment planning. 1. Medication Trials and Changes: resumed seroquel, dose titrated to 400 mg hs, pt may resume DIE SIZER dose as tolerated under care of his outpatient doctor. Valium and gabapentin for withdrawal 2. Legal Status: 72 hour hold 3. Group Attendance: no 4. Level of cooperation and Medication adherence: good 5. Change in psychiatric symptoms: no suicidality. Encephalopathy resolved. Future oriented. Much improved by day of discharge, expressing appropriate concern for his general health. States he plans to cut down on his alcohol use. 6. Discharge planning and coordination of care: pt has been to CD tx in the past. Knows how to access care. Limited engagement in this regard. May have a DUI that will force the issue. He is mostly focused on getting his cars out of impound. Reastically he is likely to resume some alcohol/BZ use upon discharge. Pt is aware of withdrawal risks. Tobacco: Smoking cessation counseling provided. Patient is not interested in quitting at this time At the time of discharge, there appeared to be no evidence that the patient posed an imminent threat to self or others and a reasonable discharge plan was in place, we determined that the patient hadachieved optimal medical benefit from hospitalization and was discharged with follow-up as detailedbelow. Consults Psych consult while on medical service medicine: Syncope: likely related to intravascular depletion in context of not eating/drinking for several days in context of meth use and decompensated psychiatric d/o. Orthostatics negative, telemetry unremarkable. - Intermittent chest pain, elevated troponin, ST segment changes on EKG: given rate of rise of troponin and EKG changes there was initially some concern for ACS. Loaded w/ ASA and put on heparin gtt.Cardiology consulted. For now they are deferring inpatient ischemic work-up since troponin elevation could be impacted by renal injury and he has several potential triggers of demand ischemia. Metoprolol started, atorvastatin increased. Troponin peaked just over 1. Heparin gtt now off; and plan to do daily baby aspirin. OP f/u w/ Cardiology to consider angiogram after Psych stay. - USAMA; improving: Cr 2.3; improving w/ IVF. Unknown recent baseline. Our last Cr on file is around 1 but this was 4 years ago. Notably pt says he has had 2 admissions over the last month or so (once in [place], once in [place], [place]) and was told my kidneys are shot. He refused to allow us to access records from these hospitals. Notably he uses PO diclofenac daily despite being told by many doctors not do to this out of concern for his kidneys. He says he buys it online now. SCr improved to 1.3. Repeats labs in 1-2 weeks with PCP. Discussed at length to stop diclofenac/nsaid use, stoplisinopril. - Bipolar d/o, likely substance abuse-induced mood d/o, hx of SI with Psych admission at [facility] [id number]: - Meth use d/o, EtOH use d/o (hx of withdrawal c/b delirium tremens), daily benzo use (says he buysthis online): problematic combination of substance use likely impacting mood as above. Told me lastdrink was 05/05. Admitted to active meth use but will not tell me his mode of use (notes indicate atleast suspicion of a history of IV use in the past). Says he cannot sleep without Xanax, which he obtains online. He declined full assessment from Addiction Medicine. Continue thiamine + folate. Kepton BARTOLOWA here but not very significantly high scores. - Chronic pain syndrome; hx posterior fusion L4-S1 and C4-C6: reports chronic low back, B/L hip, and shoulder pain. Frustrated that doctors will not prescribe him opioids, and that they recommend against diclofenac. Pain consulted, but he was not interested in any options other than opioids. Pain clinic referral made - Hypokalemia: replaced aggressively. Reports takings diclofenac 75mg bid for back pain, chronic, has had multiple surgeries, has seen pain clinic but not recently, only between his 3rd and 4th surgery. We discussed not using nsaids, including diclofenac. He is open to new referral to pain clinic Also discussed his BP, takes metoprolol and lisinopril 40mg bid at home. Discussed lisinopril discontinued due to renal issues, will start amlodipine instead, which he agrees to. He asks if he can't take more diclofenac if he should just drink more, we discussed that this wouldnot be recommended.\ No more CP Reports has chronic SOB on exertion due to deconditioning Mental Status Exam on Discharge BP (!) 172/96 (BP Cuff Size: Regular) Pulse 80 Temp 98 ??F (36.7 ??C) (Skin) Resp 18 Ht 6' 1 (1.854 m) Wt 92.4 kg (203 lb 11.2 oz) SpO2 99% BMI 26.87 kg/m?? Appearance: alert, casually groomed Behavior: cooperative Motor: normal Gait and Station: normal Speech: normal in rate and loudness Language: intact Thought process: no loosening of associations Thought content: without delusions, hallucinations or suicidal ideation Associations: intact Mood: neutral Affect: irritable Orientation: Oriented to person, place, time, and situation Attention: intact Memory: intact Fund of Knowledge: intact Insight: limited, chronic Judgment: limited, chronic Discharge Plans Condition at discharge:stable. Discharge destination: home, lives with mother Labs or testing which should be done or considered in the outpatient setting: see medical consult Appointments and Follow Up: f/u with primary care Dr. Massey at [facility], [facility] referred pt to pain clinic (chronic back pain) Discharge Orders (Non-med) Code Status / Reason for Admission / Advance Directive Comments: Code Status: full Reason for Admission: encephalopaty Health Care Decision Maker / POA: self When to Resume Normal Activities: Comments: You may resume normal activities at the time you are discharged Regular Diet Comments: Display Associate needed? No [2] No Pending Labs Discharge Instructions to Patient Comments: Follow up with primary care doctor in the next 1-2 weeks for blood pressure check, kidneyfunction check Pain clinic referral made for your pain Do not take diclofenac or lisinopril New medication for blood pressure--amlodipine Continue taking metoprolol Aspirin and cholesterol medication is for your heart health PAIN CONSULT - ADULT References: Referral [facility] Consult Page Question Answer Comment Appointment Urgency? Non-Urgent Consult for Comprehensive Pain Assessment Reason for visit? chronic back pain, lives in [place], [place] Outpatient Appt Need? Consult Cardiology Referral - Adults Comments: [facility] Special[facility]: [facility]; ( FAMILY OF CARE REFERRAL) [phone]; [address] [place] [address] References: Referral [facility] Consult Page Question Answer Comment Appointment Urgency? Non-Urgent Reason for visit? elevated troponin during hospitalization Discharge Medications Upon discharge, patient is on one scheduled antipsychotic medications. Pt states he has meds at home. Current Discharge Medication List START taking these medications Details acetaminophen (TYLENOL) 325 MG tablet Take 2 Tablets (650 mg) by mouth every 6 hours as needed. amLODIPine (NORVASC) 5 MG tablet Take 1 Tablet (5 mg) by mouth daily. Qty: 90 Tablet, Refills: 3 cyclobenzaprine (FLEXERIL) 10 MG tablet Take 1 Tablet (10 mg) by mouth three times a day as needed.Indications: Muscle Spasm Qty: 60 Tablet, Refills: 0 lidocaine (XYLOCAINE) 5 % ointment Apply topically to affected area(s) three times daily as needed. Qty: 35.44 g, Refills: 0 omeprazole (PRILOSEC) 20 MG capsule Take 1 hour before a meal. QUEtiapine (SEROQUEL) 400 MG tablet Take 2 Tablets (800 mg) by mouth daily at bedtime. Indications:Manic-Depression CONTINUE these medications which have CHANGED Details aspirin 81 MG chewable tablet Chew and swallow 1 Tablet (81 mg) by mouth daily. atorvastatin (LIPITOR) 40 MG tablet Take 1 Tablet (40 mg) by mouth every evening. folic acid 1 MG tablet Take 1 Tablet (1 mg) by mouth daily. Qty: 30 Tablet, Refills: 0 gabapentin (NEURONTIN) 300 MG capsule Take 2 Capsules (600 mg) by mouth three times a day. Indications: Neuropathic Pain metoprolol succinate (TOPROL XL) 25 MG 24 hour release tablet Take 1 Tablet (25 mg) by mouth daily. CONTINUE these medications which have NOT CHANGED Details thiamine 100 MG tablet Take 2 Tablets (200 mg) by mouth daily. Qty: 60 Tablet, Refills: 0 STOP taking these medications methocarbamol (ROBAXIN) 500 MG tablet Comments: Reason for Stopping: omeprazole (PRILOSEC OTC) 20 MG enteric coated tablet Comments: Reason for Stopping: Discharge Summary and Discharge Coordination of Care is 45 minutes. Report completed and signed by: Genet Crawley MD 05/10/2023, 12:10 PM [facility] ERN CUTTER documented in this encounter Discharge Instructions * Discharge Instructions* Mariam Jameson [facility] - 05/10/2023 9:28 AM PATTERN CUTTER Resources 1. [facility] [address], [address], [place], [place] [address] [place] [address] ([facility]) improves the lives of children and adults withmental illnesses and their families by providing free classes on mental illnesses and support groups for adults with mental illnesses, parents and family members. For more information: Toll free: 8-107-KCQA-HELPS Website: www.namihelStoree.org 2. Online go to: www.[place]Help.info 3. [facility] (serving [facility]) [address] [place] [address] Crisis Line Numbers 1. [facility] [phone] 2. [facility] ([facility]) [phone] 3. [facility] [phone] 4. National Suicide Prevention Lifeline 98 ERN CUTTER * Appointments* Mariam Jameson [facility] - 05/10/2023 9:58 AM PATTERN CUTTER As discussed with your care team. Please contact your primary care provider for an appointment. ERN CUTTER * Discharge Instr - Safety* Mariam Jameson [facility] - 05/08/2023 2:39 PM PATTERN CUTTER Call your clinic or seek medical help if you have any sudden change in your condition or if you have any of the following: Suicidal or homicidal thoughts,increase in agitation or anxiety,increase in paranoia,feelings of hopelessness,voices becoming bothersome,medication side effects not tolerable. ERN CUTTER documented in this encounter Medications at Time of Discharge Medication Sig Dispensed Refills Start Date End Date acetaminophen (TYLENOL) 325 MG tablet Take 2 Tablets (650 mg) by mouth every 6 hours as needed. 05/10/2023 amLODIPine (NORVASC) 5 MG tablet Take 1 Tablet (5 mg) by mouth daily. 90 Tablet 3 05/10/2023 05/09/2024 aspirin 81 MG chewable tablet Chew and swallow 1 Tablet (81 mg) by mouth daily. 05/10/2023 atorvastatin (LIPITOR) 40 MG tablet Take 1 Tablet (40 mg) by mouth every evening. 05/10/2023 cyclobenzaprine (FLEXERIL) 10 MG tabletIndications:Mus ron Spasm Take 1 Tablet (10 mg) by mouth three times a day as needed. Indications: Muscle Spasm 60 Tablet 05/10/2023 folic acid 1 MG tablet Take 1 Tablet (1 mg) by mouth daily. 30 Tablet 05/10/2023 gabapentin (NEURONTIN) 300 MG capsuleIndications:Ne uropathic Pain Take 2 Capsules (600 mg) by mouth three times a day. Indications: Neuropathic Pain 05/10/2023 lidocaine (XYLOCAINE) 5 % ointment Apply topically to affected area(s) three times daily as needed. 35.44 g 05/10/2023 metoprolol succinate (TOPROL XL) 25 MG 24 hour release tablet Take 1 Tablet (25 mg) by mouth daily. 05/10/2023 omeprazole (PRILOSEC) 20 MG capsule Take 1 hour before a meal. 05/10/2023 QUEtiapine (SEROQUEL) 400 MG tabletIndications:Bip olar Mood Disorder Take 2 Tablets (800 mg) by mouth daily at bedtime. Indications: Manic-Depression 05/10/2023 thiamine 100 MG tablet Take 2 Tablets (200 mg) by mouth daily. 60 Tablet 05/08/2023 06/09/2023 documented as of this encounter Progress Notes * Laurie Tineo PA-C - 05/09/2023 3:47 PM CST Non-billable med note Pt sleeping-> not seen Please encourage oral intake, especially fluid intake Plan labs tomorrow, will see tomorrow Laurie Tineo PA-C ERN CUTTER documented in this encounter Consult Notes * Laurie Tineo PA-C - 05/10/2023 8:36 AM CSTAssociated Order(s): INTERNAL MEDICINE CONSULT Internal Medicine Consult Patient Name: Nicanor Alvarado Date of : 1965 Admit Date/Time: 05/08/2023. Attending: Genet Crawley MD Date of Service: 05/09/2023 CC: Medical comanagement at the request of Genet Crawley MD. History of present illness: Nicanor Alvarado is a 57 y.o. M w/ hx of EtOH abuse, meth abuse, daily Xanax use, bipolar disorder, anxiety, HTN, HLD, low back pain who was admitted to medicine for syncope (brought in by police after arrested for erratic driving). Complicated by agitation from decompensated bipolar vs substance-induced mood d/o. Transferred to [facility] on 05/07 Seen this morning Reports takings diclofenac 75mg bid for back pain, chronic, has had multiple surgeries, has seen pain clinic but not recently, only between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 addressed: Will order metabolic labs when more cooperative. - Syncope: likely related to intravascular depletion in context of not eating/drinking for several days in context of meth use and decompensated psychiatric d/o. Orthostatics negative, telemetry unremarkable. - Intermittent chest pain, elevated troponin, ST segment changes on EKG: given rate of rise of troponin and EKG changes there was initially some concern for ACS. Loaded w/ ASA and put on heparin gtt.Cardiology consulted. For now they are deferring inpatient ischemic work-up since troponin elevation could be impacted by renal injury and he has several potential triggers of demand ischemia. Metoprolol started, atorvastatin increased. Troponin peaked just over 1. Heparin gtt now off; and plan to do daily baby aspirin. OP f/u w/ Cardiology to consider angiogram after Psych stay. - USAMA; improving: Cr 2.3; improving w/ IVF. Unknown recent baseline. Our last Cr on file is around 1 but this was 4 years ago. Notably pt says he has had 2 admissions over the last month or so (once in [place], once in [place], [place]) and was told my kidneys are shot. He refused to allow us to access records from these hospitals. Notably he uses PO diclofenac daily despite being told by many doctors not do to this out of concern for his kidneys. He says he buys it online now. Repeat BMP and consult medicine while on Psychiatry unit. Likely that PO intake can be encouraged and would expect Cr to continue improving in coming days. - Bipolar d/o, likely substance abuse-induced mood d/o, hx of SI with Psych admission at [facility] [id number]: fidgety, agitated. Endorsed auditory hallucinations telling him something about him being but denies a suicidal plan. Attempted to leave the hospital today. Placed on emergency 72-hour hold per Psych. Discharging to Inpatient Psych unit today. - Meth use d/o, EtOH use d/o (hx of withdrawal c/b delirium tremens), daily benzo use (says he buysthis online): problematic combination of substance use likely impacting mood as above. Told me lastdrink was 05/05. Admitted to active meth use but will not tell me his mode of use (notes indicate atleast suspicion of a history of IV use in the past). Says he cannot sleep without Xanax, which he obtains online. He declined full assessment from Addiction Medicine. Continue thiamine + folate. [place] CIWA here but not very significantly high scores. - Chronic pain syndrome; hx posterior fusion L4-S1 and C4-C6: reports chronic low back, B/L hip, and shoulder pain. Frustrated that doctors will not prescribe him opioids, and that they recommend against diclofenac. Pain consulted, but he was not interested in any options other than opioids. If he is agreeable in the future, next step would be spinal and/or hip imaging. - Hypokalemia: replaced aggressively. Medication Ordered/Consults/Labs/Tests Ordered: Seroquel 400 mg hs. BZ withdrawal protocol. (Gabapentin). Schedule valium 10 mg bid. BH med to follow Level of Observation: No additional monitoring needed Milieu Management: Admit to: NE4 Legal: 72 hour hold. Start Date/Time: 05/08/23 1251, End Date/Time: 05/20/23 0001 Acuity level :Red (caution - at risk, monitored for safety) Encourage the patient to participate in unit activities. Certification & Risk Assessment The patient needs inpatient psychiatric treatment for diagnostic assessment and treatment of the following symptoms: psychosis, agitation. Estimated length of stay is 2 days. Anticipated disposition: family, reportedly lives with mother Risk Assessment: unable to care for self: High if using drugs/alcohol - driving while intox: high Suicide Risk: No Acute Risk Biopsychosocial Stressors: Medical Issues, cars impounded after DUI Patient Strengths: family/social support, lives with mother. So far he has not allowed DORA. Has a primary care doctor. NE4 attending Genet Crawley MD ERN CUTTER documented in this encounter Miscellaneous Notes * Payor Communication - Melina Rubio RN - 05/10/2023 9:10 AM CST Mental Health Utilization Review Note Positive Psychotic Symptoms and risk of harm to self and others. (One or more selected: Meets Criteria) Disorganization behavior increasing Poor impulse control Self-Injury or Uncontrolled risk-taking behavior: Yes Risk of harm to self or others within last 24 hours. (One or more selected: Meets Criteria) Taking excessive amounts of alcohol or other substance Support Unavailable or unable to provide needed care and supervision and acute deterioration in functioning. (One or more selected: Meets Criteria) Unable to follow instructions or negotiate needs Meets Criteria: YES ERN CUTTER documented in this encounter Plan of Treatment Scheduled Referrals Name Type Priority Associated Diagnoses Orde r Schedule PAIN CONSULT - ADULT Referral Routine S/P lumbar spinal fusion Ordered: 05/10/2023 Cardiology Referral - Adults Referral Routine Elevated troponin Ordered: 05/10/2023 documented as of this encounter Procedures Procedure Name Priority Date/Time Associated Diagnosis Comments BASIC METABOLIC PANEL Routine 05/10/2023 8:06 AM PATTERN CUTTER documented in this encounter Results * (ABNORMAL) Basic Metabolic Panel (05/10/2023 8:06 AM PATTERN CUTTER) Sodium 139 136 - 145 mmol/L 05/10/2023 8:49 AM PATTERN CUTTER [facility] Potassium 3.8 3.5 - 5.1 mmol/L 05/10/2023 8:49 AM [facility] Comment:Specimen slightly he molyzed. Hemolysis may affect result. Chloride 102 98 - 109 mmol/L 05/10/2023 8:49 AM [facility] CO2 26 20 - 29 mmol/L 05/10/2023 8:49 AM [facility] Anion Gap 11 7 - 16 mmol/L 05/10/2023 8:49 AM [facility] Calcium 10.1 8.4 - 10.4 mg/dL 05/10/2023 8:49 AM [facility] BUN 17 7 - 26 mg/dL 05/10/2023 8:49 AM [facility] Creatinine 1.30(H) 0.73 - 1.18 mg/dL 05/10/2023 8:49 AM [facility] Glucose 84 70 - 100 mg/dL 05/10/2023 8:49 AM [facility] Comment:The given reference range is for the fasting state. Non-fasting reference range for glucose is 70 - 180 mg/dL. GFR, Estimated >60 >60 mL/min/1.7 3m2 05/10/2023 8:49 AM [facility] Blood Venipuncture / Unknown 05/10/2023 8:06 AM PATTERN CUTTER 05/10/2023 8:12 AM [facility] Laurie Tineo PA-C LAB_1 Performing Organization Address City/State/[facility] [place] [address], [facility] documented in this encounter Visit Diagnoses Diagnosis Encephalopathy- Primary Encephalopathy, unspecified S/P lumbar spinal fusion Arthrodesis status Elevated troponin Other abnormal blood chemistry Bipolar affective disorder (HRC) Bipolar disorder, unspecified Methamphetamine use (HRC) Nondependent amphetamine or related acting sympathomimetic abuse, unspecified Alcohol use disorder Alcohol-induced cognitive dysfunction (HRC) Polysubstance dependence (HRC) Combinations of drug dependence excluding opioid type drug, unspecified USAMA (acute kidney injury) (HRC) Acute kidney failure, unspecified * Plan of Care - Jesika Welch RN - 05/10/2023 11:17 AM CST [facility] Discharge Note - Nursing Admission Date/Time: 05/08/2023 6:31 PM Attending MD: Genet Crawley MD Patient discharged: to Home. Discharge Date: 05/10/2023 Discharge Time: 11:33 AM Patient accompanied by: self . Transported by: Walked Valuables were taken home by patient: Yes Discharge instructions given and explained to patient: Yes Discharge Patient Education Plan completed, taught, and provided to patient/caregiver at discharge:Yes Discussed medication risks with patient Patient understands medications usage and side effects Patient understands diagnosis Action Plan for management of symptoms/side effects/complications requiring medical attention established and shared with patient/caregiver Was patient discharged on Warfarin? {(Do not delete line; Warfarin documentation is required) No Patients general condition on discharge: Medically stable, calm. All medical devices (telemetry/IV/etc) unless otherwise ordered, have been removed and stored: N/A --- End of Report --- ERN CUTTER * Initial Assessments - Thelma Worthy OTR/L - 05/10/2023 10:58 AM PATTERN CUTTER [facility] OT Initial Assessment Diagnosis: Encounter Diagnoses Name Primary? S/P lumbar spinal fusion Yes Patient Data on File [address] 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 Tobacco Use Smoking status: Former Current packs/day: 0.50 Average packs/day: 0.5 packs/day for 3.0 years (1.5 ttl pk-yrs) Types: Cigars, Cigarettes Smokeless tobacco: Never Tobacco comments: Occasional cigar Vaping Use Vaping status: Never Used Substance and Sexual Activity Alcohol use: Yes Comment: Rare Drug use: No Sexual activity: Not Currently Partners: Female Other Topics Concern Not on file Social History Narrative Not on file Social Determinants of Health Financial Resource Strain: High Risk (03/08/2021) Received from [facility] Financial Resource Strain Difficulty of Paying Living Expenses: Not on file Difficulty of Paying Living Expenses: Not on file Food Insecurity: Not on file Transportation Needs: Not on file Intimate Partner Violence: Unknown (05/07/2023) Humiliation, Afraid, Rape, and Kick questionnaire Fear of Current or Ex-Partner: Not on file Emotionally Abused: Not on file Physically Abused: No Sexually Abused: No Housing Stability: Low Risk (05/07/2023) Housing Stability Vital Sign Unable to Pay for Housing in the Last Year: No Number of Places Lived in the Last Year: 1 Unstable Housing in the Last Year: No Patient Stated Information Initial Assessment 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 Initial Assessment Patient Stressors: Hospitalization, Relationships, Grief/Loss Initial Assessment Patient Coping Skills: Drinking Favorite Leisure/hobbies/exercise: Being outside. I used to enjoy fishing and hunting . How can we make your hospital stay more comfortable? Patient provided reading glasses and grooming supplies . Sensory Section Patient noticed sensory sensitivities to Patient noticed strong attractions to Patient noticed changes or concerns with OT observed sensory sensitivities to OT observed strong attractions to OT observed changes or concerns with Do you experience pain or migraine? yes Location of pain or migraine? Duration of pain or migraine? Do you have a trauma history? yes Patient has a trauma history of grief/loss Do you feel your sensory sensitivities affect your daily life activities? not addressed Sensory screen offered to patient no, monitor for additional SI needs Initial sensory items/activities receptive and preferred Patient declines sensory items at this time Initial sensory items/activities receptive and preferred specifics Patient's initial report stress/anxiety before: Patient's initial report stress/anxiety after: Additional comments Patient is calm and controlled throughout. He is receptive to residential mortgage underwriter orienting him to group and encouraging attendance despite being discharge focused and hoping to leave today. Communications Executive encourages journaling as a way to occupy his time but he expresses that he does not want to write the thoughts he is having down. Declines all offered sensory and comfort supplies Tom reports having significant pain in his back and has physical limitations as a result. Patient chosen programming curriculum track: Building Hope and Recovery Patient's Goal for this Hospitalization: get discharged genet. Subjective: I'm having a hard time with my son's living conditions. He's told me that he has contemplated suicide. I had four deaths in one year. My oldest son and they think it may have been suicide but theycan't know for sure. Patient's Recovery Goals Patient's Recovery Goals: No Reasons for not developing patient recovery goals during initial interview: (Patient is fixated on discharge) Assessment Nicanor was cooperative, grooming appeared adequate, eye contact was WNL, affect/mood appeared anxious, energy level appeared WNL, speech/responses were WNL, thinking/processing appeared negative, exhibited symptoms of anxiety and depression, coping skills appeared poor, insight appeared limited, was oriented to OT groups and encouraged to attend, and based on this assessment, interventions for this person could be focused on: coping skills, exercise, goal setting, leisure, positive thinking, re-motivation activities, self-care, self- regulation strategies, sensory intervention strategies, sleep hygiene, and socialization opportunities. Goals Treatment Goals: 1. Assess and provide [...] OT groups: Clinic, Life Skills, Movement/Exercise, Unit, Grooming, and Illness, Management, and Recovery (IM&R) Group. Please refer to the OT Progress Note for Treatment Goals. I acknowledge that the above information has been reviewed with the patient and the patient agrees with the above chosen problem area(s), goal(s) and plan. --- End of Report --- ERN CUTTER * Plan of Care - Hazel Mosher MSW, CAPACITY PLANNER - 05/10/2023 9:20 AM PATTERN CUTTER [facility] Social Work Discharge Note Admission Date/Time: 05/08/2023 6:31 PM Attending Practitioner: Genet Crawley MD County: [place] Insurance: HUMAN Secondary Insurance: N/A Disposition: Home Expected Discharge Date/Time: 05/10/2023 00:01 Legal Status at Discharge: 72 Hour Hold, lifted Transportation Arrangements: Transportation Provided By: Family/friend Discharge Collateral Contact: Collateral Contacts: Other Contact 1, Other Contact 2 Release of Information?: No Other Contact Name : verna Alvarado Other Contact YASMEEN Services: Resources provided Discharge Safety Risk Assessed: Yes; Pt denied SI, SIB, HI, CD concerns. Pt has or was provided weather appropriate clothing. Discharge Summary: SW met w/ pt who confirmed desire to discharge. Pt reports he plans to go home and wants provided CD resources. Pt worried about financial impact of DUI and hospital stay. Discussed his ability to contact Financial once receives final bill to discuss payment plans and concerns. Pt frustrated, struggling to take ownership of DUI as he felt that it was necessary to pickling machine operator his son from senior care. SW relayed not being up to date on fines for DUIs and provided information on how to reach out to [facility]/corporate legal secretary. Pt denied SI, SIB, HI, CD concerns. Pt son is picking him up. ERN CUTTER * Plan of Care - Jesika Welch RN - 05/10/2023 8:45 AM CST Problem: Mood Impairment (Psychotic Signs/Symptoms) Goal: Improved Mood Symptoms (Psychotic Signs/Symptoms) Outcome: Progressing [facility] Plan of Care Note Assessment: Anxious, cooperative Plan: Provide interaction to build trust, encourage verbalization of needs, explain plan of care topatient. Monitor thoughts, behaviors and mood. Subjective: I'm feeling much better Objective: Pt was out on the unit this morning, ate breakfast in the dayroom. BP was 172/96, received scheduled meds and PRN clonidine 0.1 mg. When asked how he was feeling he said, I'm feeling muchbetter; denied AH/VH/SI. Pt is mostly worried about getting the two cars out of the impound lot, said, If I'm leaving today I hope it's before noon because it's quite a drive. --- End of Report --- ERN CUTTER * Plan of Care - Thelma Worthy OTR/Sebastien - 05/10/2023 7:14 AM CST [facility] Occupational Therapy Plan of Care Note Group Name Attendance Minutes Topic Movement/Exercise Activity Room/Group Red Code Life Skills/IM&R Excused Discharged Clinic Absent/Refusal Daily Group Total: 0 OT Evaluation Minutes: Evaluation: All OT Evaluations are found under Consults - OT Notes. Group Daily Assessment Sensory Items/Activities Offered: Grooming: Affect: Cognitive/Tracking: Social Skills: Work Skills: Investment/Participation: Comments: 1:1 OT Assessment Minutes: Topic: Comments: Sensory Assessment According to current staff observation, sensory self-report, and history of behavior the following interventions were offered: Patient was receptive to the following interventions: Assessment and Interpretation of the Sensory Consultation are as follows: Patient Care and Considerations: Recommendations to try when patient has stabilized: Stress/Anxiety/Energy Level Topic: Patient reported anxiety before: Patient reported anxiety after: Patient reported energy before: Patient reported energy after: Patient reported Zone of Regulation before: Patient reported Zone of Regulation after: Patient reported benefits: Patient other reported benefits: Initial Assessment Patient Reported Strengths: Hard worker Patient's Curriculum Track Building Hope and Recovery Patient's Recovery Goals Patient's Recovery Goals: No Reasons for not developing patient recovery goals during initial interview: (Patient is fixated on discharge) Patient's Goals Attend at least 2/3 OT [...] and Recovery (IM&R), Unit, Grooming and/or Movement/Exercise. ERN CUTTER * Plan of Care - Jaqui Head RN - 05/10/2023 5:02 AM CST [facility] Plan of Care Note Assessment: Sleep Plan: Pt will sleep > 5 hrs. Subjective: N/A Objective: Pt appeared to have slept through the night. No behavioral or safety concerns noted. 15 minutes security checks ongoing. Patient is on CIWA Q4 hours. Unable to assess since patient has been sleeping. Will assess if patient wakes up. CIWA score at 0640 was a 3. He had a slight tremor and mild persperiation. Gave 650 tylenol and hot pack for shoulder and back pain rating it a 4. --- End of Report --- ERN CUTTER * Plan of Care - Anca Finney RN - 05/09/2023 9:10 PM CST Problem: Adult Inpatient Plan of Care Goal: Optimal Comfort and Wellbeing Outcome: Progressing [facility] Plan of Care Note Assessment: General Plan of Care Plan: Follow plan of care and maintain safety Subjective: I've got a lot going on, my son committed suicide, the other one made several attempts, he got a DUI when I got a DWI and lives in a car, I'm probably gonna get kick out of my mom's house and has 2 cars in impound. Objective: Tom was laying in bed at beginning of shift, c/o back pain, CROWE and anxiety. Pt was tearful. Administered Robaxen PRN and warm pack. Provided education on increasing fluids, pain managementand distraction techniques to decrease discomfort and anxiety levels. Interventions were successfulin building trusting therapeutic relationship. Pt later reached out to staff to communicate needs effectively and watched TV in Dayroom. Smiled once. No active s/s ETOH w/d except for profuse sweating at 2029, changed to clean scrubs, and administered scheduled HS Valium with relief from symptoms. CIWA's below 10 all shift, curently on Q4H checks. Denies any SI, VH or AH --- End of Report --- ERN CUTTER * Plan of Care - Jesika Welch RN - 05/09/2023 10:13 AM CST Problem: Mood Impairment (Psychotic Signs/Symptoms) Goal: Improved Mood Symptoms (Psychotic Signs/Symptoms) Outcome: Progressing [facility] Plan of Care Note Assessment: Irritable, restless Plan: Provide interaction to build trust, encourage verbalization of needs, explain plan of care topatient. Monitor thoughts, behaviors and mood. Subjective: I already took meds this morning Objective: Pt was very restless and irritable this morning, was shaking his feet around while laying in bed. He mostly stared ahead and gave very audrey responses. He took all meds except lidocaine patch; CIWA was 10 at that time and was given 5 mg PRN Valium per CIWA scale. MD made some changes to orders for CIWA and Valium, see MAR. Pt was sleeping shortly after. Remaining CIWA scores were 4, 0, 0, 0 and 7. Pt was in bed all shift. --- End of Report --- ERN CUTTER * Initial Assessments - Brooklyn Ibarra, GLAZIER HELPER, CAPACITY PLANNER - 05/09/2023 8:11 AM PATTERN CUTTER [facility] Social Work Initial Assessment Admission Date/Time: 05/08/2023 6:31 PM Age: 57 y.o. Attending Practitioner: Genet Crawley MD County: [place] Admitting Diagnosis: No diagnosis found. Reason for admit: Patient admitted to the [facility] ED on 05/08/2023 after being brought in by police for erratic driving. Upon admission, he was tangential and disorganized. He endorsed pressured speechand grandiosity. HE reported an increase in Meth use as well as endorsing auditory hallucinations which has caused him difficulty with sleeping. He further reported an increase in depressive symptomsdue to his son endorsing suicidal thoughts. He previously reported he has been wanting to obtain mental health supports for overall stabilization due to recently starting Lexapro. Legal Status: On Admission: 72 hour hold. Start Date/Time: 05/08/231250, End Date/Time: 05/20/23 0001 Current: 72 hour hold. Start Date/Time: 05/08/23 1251, End Date/Time: 05/20/23 0001 Committed: No Current Order Received in Chart: No Legal Issues: Arrested for a DWI prior to being brought to [facility]. Living Situation: Parents, Other relatives (comment) (Son) Alternative Decision Maker: No Collateral Contacts Collateral Contacts: Other Contact 1, Other Contact 2 Release of Information?: No Other Contact Name : son Salvatore Alvarado Other Contact Financial Insurance: HUMA[employer] Secondary Insurance: N/A Employment/Income: None reported Psychiatric/Substance Use Disorder/Medical History Patient endorses a past psychiatric diagnosis of Bipolar I Disorder, Schizophrenia and Major Depressive Disorder. Patient's chart review notes a history of inpatient psychiatric admissions in the past. Most recent admissions were 09/10/2015 to 09/18/2015 ([place] [address]) and 09/23/2015-10/07/2015 ([facility]). Patient endorses regular use of Methamphetamine and Xanax in which he purchases online. Please refer to H&P for medical summary. Data SW and attending MD, Dr. Crawley, met with patient on the unit, introduced selves and explained roles. Patient reported he is not happy about being admitted and that he does not trust anything hospitalstaff have told him because he was expecting to have discharged two days ago. Patient reported he is not currently receptive to CD supports or outpatient at present unless he is able to leave tomorrow. Patient also reported he has legal concerns with his pending DWI as well as two cars in the impound that he needs to get out soon. Patient declined to have hospital staff call his mom or other social supports at present. Chart review completed. Consulted with Dr. Genet Tomac. Patient may likely be able to discharge tomorrow, pending medical clearance. GAIN Substance Disorder Screening (SDScr) GAIN-SS (When was the last time the patient - per patient report) Able to assess?: Yes The patient used alcohol or drugs weekly?: 3 (past month) Patient spent a lot of time getting or using alcohol or drugs, or feeling the effects of alcohol ordrugs: 3 (Past month) Patient used alcohol/drugs even though caused social problems, lead to fights/trouble w/others: 3 (Past Month) Patient's use of alcohol/drugs caused them to give up, reduce/have problems at important activitiesat work/school/home/social events: 3 (Past Month) Patient had withdrawal problems from alcohol/drugs like shaking hands/vomiting/trouble sitting still/sleeping or used alcohol/drugs to stop sickness/withdrawal problems: 3 (Past Month) Score ((# of symptoms endorsed in the past year - total number of 3s and 2's): 3+, High, YASMEEN assessment indicated MICD Integrated Assessment MICD Integrated Assessment Indicated?: Yes How do your mental health problems or symptoms impact your substance abuse (i.e. I use/use more often/use in larger quantities because it helps me: calm my nerves, cope, deal with the pain, relax, get through the day, etc.)?: Patient reports no concerns. How does substance use affect your mental health problems or symptoms (i.e. Does using cannabis make your more paranoid, are your problems with anxiety/depression worse after you come down or sober up?)?: Patient reports no concerns. On a scale of 1 to 10 how strongly do you feel that you might have a problem with substances (1 being no problem and 10 being having a definite problem)?: 1 On a scale from 1 to 10 how strongly do you feel that you need to look into treatment for substanceuse (1 is don't need treatment and 10 is definitely need treatment)?: 1 Stages of Change Stage of Mental Health Treatment: Stage 1: Pre-Contemplation/Pre-Engagement (Engagement, Irregular or no contact with community provider, does not identify as having WA, No readiness to engage in treatment) WA Treatment Recommendations for Inpatient/Outpatient: Invite to educational group (stage 1), Referto community provider (stage 1), Provide diagnostic education (stage 1, 2), Development of recoveryplan (stage 1) Stage of Substance Use Treatment: Stage 1: Pre-Contemplation/Pre-Engagement, Engagement (Irregular or no contact with community provider, does not identify as having CD, no readiness to engage in treatment) CD Treatment Recommendations for Inpatient/Outpatient: Invite to educational group (stage 1), Provide diagnostic education (stage 1, 2), Refer to community provider (stage 1), Development of recoveryplan (stage 1) Clinical Assessment Strengths: Has insurance Barriers/Vulnerabilities: uncooperative, impaired insight, substance use concerns, mental health issues, does not have case management Risk Assessment: LOW RISK. Patient not currently endorsing SI/SIB or HI/IB. Current Aggression towards others: No Clinical Summary: Patient in need of crisis stabilization and medication management. Reasons for readmission in last 30 days None Initial Social Work Plan Anticipated Disposition: Medication Management and Outpatient Supports? ERN CUTTER * Plan of Care - Radha Mao RN - 05/09/2023 6:29 AM CST Pt slept through the night, no behavioral concerns noted. CIWA; 0 . 15 min checks ongoing. ERN CUTTER * Plan of Care - Ángel Galicia RN - 05/08/2023 10:21 PM CST Problem: Mood Impairment (Psychotic Signs/Symptoms) Goal: Improved Mood Symptoms (Psychotic Signs/Symptoms) Outcome: Not Progressing Assessment: Altered mood Plan: Provide interaction to build trust. Encourage patient to verbalize needs. Continue to observeand document. Subjective: They said I could go and then they made me come here. It's bullshit. I don't need a shrink working on me. I've got two cars sitting in impound and my son is living out of a car. Don't expect anything out of me. Objective: Patient was admitted to the unit from medicine at 1815. He was angry about being in the hospital. He was verbally hostile, but physically controlled during interactions. He denied SI, HI, A/VH. He declined to go over the admission paperwork. He answered most assessment questions, but refused a physical exam. His blood pressure was 175/97. He initially refused Clonidine, but accepted itwhen residential mortgage underwriter approached again later. He requested a pain medication, but refused Tylenol and only wanted Diclofenac. The request was denied by the provider based on his kidney health and pain management consultation. He accepted his scheduled medication. ERN CUTTER * Initial Assessments - Sebas Pedraza, ARCADE ATTENDANT, OIL EXPELLER OPERATOR - 05/08/2023 6:34 PM PATTERN CUTTER Nicaonr Alvarado 05/08/2023 6:34 PM Patient has been transferred to [facility] from the medicine service. he has been seen by the medicine andPsych Consult teams today. Please see their notes for more information. The patient requires transfer to acute inpatient psychiatric treatment secondary to medical stablization following syncopical events in the community. Assessment and Plan from Medicine Team Nicanor Alvarado is a 57 y.o. M w/ hx of EtOH abuse, meth abuse, daily Xanax use, bipolar disorder, anxiety, HTN, HLD, low back pain who was admitted for syncope (brought in by police after arrestedfor erratic driving). Complicated by agitation from decompensated bipolar vs substance-induced moodd/o. - Syncope: likely related to intravascular depletion in context of not eating/drinking for several days in context of meth use and decompensated psychiatric d/o. Orthostatics negative, telemetry unremarkable. - Intermittent chest pain, elevated troponin, ST segment changes on EKG: given rate of rise of troponin and EKG changes there was initially some concern for ACS. Loaded w/ ASA and put on heparin gtt.Cardiology consulted. For now they are deferring inpatient ischemic work-up since troponin elevation could be impacted by renal injury and he has several potential triggers of demand ischemia. Metoprolol started, atorvastatin increased. Troponin peaked just over 1. Heparin gtt now off; and plan to do daily baby aspirin. OP f/u w/ Cardiology to consider angiogram after Psych stay. - USAMA; improving: Cr 2.3; improving w/ IVF. Unknown recent baseline. Our last Cr on file is around 1 but this was 4 years ago. Notably pt says he has had 2 admissions over the last month or so (once in [place], once in [place], [place]) and was told my kidneys are shot. He refused to allow us to access records from these hospitals. Notably he uses PO diclofenac daily despite being told by many doctors not do to this out of concern for his kidneys. He says he buys it online now. Repeat BMP and consult medicine while on Psychiatry unit. Likely that PO intake can be encouraged and would expect Cr to continue improving in coming days. - Bipolar d/o, likely substance abuse-induced mood d/o, hx of SI with Psych admission at [facility] [id number]: fidgety, agitated. Endorsed auditory hallucinations telling him something about him being but denies a suicidal plan. Attempted to leave the hospital today. Placed on emergency 72-hour hold per Psych. Discharging to Inpatient Psych unit today. - Meth use d/o, EtOH use d/o (hx of withdrawal c/b delirium tremens), daily benzo use (says he buysthis online): problematic combination of substance use likely impacting mood as above. Told me lastdrink was 05/05. Admitted to active meth use but will not tell me his mode of use (notes indicate atleast suspicion of a history of IV use in the past). Says he cannot sleep without Xanax, which he obtains online. He declined full assessment from Addiction Medicine. Continue thiamine + folate. [place] CIWA here but not very significantly high scores. - Chronic pain syndrome; hx posterior fusion L4-S1 and C4-C6: reports chronic low back, B/L hip, and shoulder pain. Frustrated that doctors will not prescribe him opioids, and that they recommend against diclofenac. Pain consulted, but he was not interested in any options other than opioids. If he is agreeable in the future, next step would be spinal and/or hip imaging. - Hypokalemia: replaced aggressively. Assessment and Plan from Psych Consult Team (today's note incomplete on completed time of transfer - note from 05/07/2023 - 57 y.o. with history of bipolar disorder, polysubstance use (currently alcohol and benzodiazepines), chronic back pain admitted with respiratory failure and elevatd troponin. Psychiatry was consultedfor concern for kennedi. Tom currently presents with a disorganized and tangential thought process. He has some increased rate of speech, but not to the level of being pressured or grandiosity. He initially does not discuss recent meth use, but eventually states that he has been using this more frequently recently. This has caused him to hear voices and have difficulty falling asleep. Because of this he has been increasing alcohol and Xanax (purchased online) use during this time in order to help him sleep. He has beenfeeling more depressed recently given stressor of his son having suicidal thoughts, but he does nothave any plan to commit suicide himself. He has been trying to get connected with a psychologist and recently was started on Lexapro. He also reports taking 800mg Seroquel, however he reports sometimes not taking medications and saving them so he has extra. Most likely he is currently presenting with a substance induced psychosis, however there could be a component of possible bipolar kennedi or schizoaffective disorder that may have been activated by recent Lexapro or meth use. Given unclear pict ure and significant polysubstance use we will hold his psychiatric medications for now. He should be on CIWA and would recommend management with phenobarbital for withdrawal from alcohol/xanax. Patient with a self-reported past history of bipolar disorder, presenting with AMS in the setting of an arrest for DWI while intoxicated with alcohol, street xanax, and methamphetamine. He is disorganized and paranoid. He lacks insight into his medical issues and does not have decisional capacity to elect AMA discharge or refuse emergently needed medical care. He is reporting ongoing Rx of psychotropic medications however it is unclear if he is actually taking any of them. He will not allow collateral contact and is actively working to conceal and minimize knowledge of his drug and alcohol use; this indicates low motivation for abstinence and high likelihood of continued use and ongoing subs tance related psychotic symptoms. Given his intoxication and withdrawal, assessment of underlying psychiatric diagnosis will be difficult. Diagnoses Encephalopathy Substance induced psychosis vs. Bipolar Disorder vs. Schizoaffective disorder Hx of PTSD Polysubstance use disorder (Alcohol, benzodiazepines, xanax) Recommendations Safety and Legal Status: No orders of the defined types were placed in this encounter. Safety: Holdable if tries to leave AMA, at time of interview patient does not have capacity and at significant risk of harm to self given recent significant substance use. Level of Observation: No additional monitoring needed Medications and Labs: - Seroquel 200mg QHS restarted - first dose 3/2 HS. -Hold DIE SIZER Lexapro 20mg daily -Hold DIE SIZER Trazodone 200mg BID -Hold DIE SIZER Prazosin 2mg qHS -Continue gabapentin 600mg TID and can increase to 900mg TID to help manage withdrawal symptoms if needed -Recommend [facility] Plan Psychiatric Orders have been completed. Sebas Pedraza APRN, OIL EXPELLER OPERATOR ERN CUTTER documented in this encounter Administered Medications Inactive Administered Medications - up to 3 most recent administrations Medication Order MAR Action Action Date Dose Rate Site acetaminophen (TYLENOL) tablet 650 mg 650 mg, Oral, Q6H PRN, Pain/Fever, Initially give acetaminophen for patient with mild pain., Starting on 05/08/23 at 1839, Until 05/10/23 at 1421, Initially give acetaminophen for patient with mild pain. Acetaminophen may be given WITH other pain medications as adjunct pain relief. Do not give two acetaminophen containing medications within 4 hours of each other. Max apap 4 grams per 24 hours in all forms Given 05/10/2023 6:40 AM PATTERN CUTTER 650 mg aspirin chewable tablet 81 mg 81 mg, Oral, DAILY, First dose (after last modification) on 05/09/23 at 0900, Until Discontinued Given 05/10/2023 7:49 AM PATTERN CUTTER 81 mg Given 05/09/2023 8:02 AM PATTERN CUTTER 81 mg atorvastatin (LIPITOR) tablet 40 mg 40 mg, Oral, DAILY - 1999, First dose (after last modification) on 05/08/23 at 2000, Until Discontinued Given 05/09/2023 8:32 PM PATTERN CUTTER 40 mg Given 05/08/2023 8:58 PM PATTERN CUTTER 40 mg bisacodyl (DULCOLAX) rectal suppository 10 mg 10 mg, Rectal, DAILY PRN, Constipation, No stool in the last 3 days, Starting on 05/08/23 at 1844, Until 05/10/23 at 1421, Cumulative bowel medication orders. Administer based on medications available on MAY. If no stool in last day start Senna BID PRN no stool, if no stool in last 2 days add Miralax DAILY PRN no stool, if no stool in last 3 days add bisacodyl suppository DAILY PRN until patient stools. When patient stools, stop giving PRN meds and continue monitoring for bowel activity. When no stools X 1 day, begin regimen again until patient stools. Do not give if Absolute Neutrophil Count (ANC) is 1 k/cmm or less OR platelet count is 50 k/cmm or less. calcium carbonate (TUMS) chewable tablet 1,000 mg 1,000 mg, Oral, Q4H PRN, Heartburn, Upset Stomach, Starting on 05/08/23 at 1839, Until 05/10/23 at 1421, For indigestion/upset stomach cloNIDine (CATAPRES) tablet 0.1 mg 0.1 mg, Oral, Q4H PRN, Other, Give for SBP greater than 160 and/or DBP greater than 110. DO NOT GIVE if HR less than 70., Starting on 05/08/23 at 1843, Until 05/10/23 at 1421, Call practitioner for additional orders if elevated SBP or DBP and HR less than 70., Indications: Alcohol withdrawal associated hypertension Given 05/10/2023 7:55 AM PATTERN CUTTER 0.1 mg Given 05/08/2023 8:58 PM PATTERN CUTTER 0.1 mg cyclobenzaprine (FLEXERIL) tablet 10 mg 10 mg, Oral, TID PRN, Muscle Spasms, Pain, Starting on 05/10/23 at 1008, Until Wed05/10/23 at 1421 diazePAM (VALIUM) tablet 10 mg 10 mg, Oral, BID, First dose on 05/09/23 at 1400, Until Discontinued, Indications: Alcohol Withdrawal Syndrome Given 05/10/2023 7:48 AM PATTERN CUTTER 10 mg Given 05/09/2023 8:31 PM PATTERN CUTTER 10 mg Given 05/09/2023 1:13 PM PATTERN CUTTER 10 mg diazePAM (VALIUM) tablet 2.5-10 mg 2.5-10 mg, Oral, Q30MIN PRN, Alcohol Withdrawal Symptoms, Starting on 05/08/23 at 1843, Until 05/09/23 at 0956, If patient has scheduled diazepam, use PRN dose if it is more than 1 hour until next scheduled dose; if it's within 1 hour of next scheduled dose give scheduled dose early. Give oral/enteral dose if able; give IV dose if unable to give oral/enteral dose. Dosing Guidelines: *CIWA-Ar score 0-4: No diazepam dosing indicated. Reassess CIWA-Ar score in 8 hours. If symptoms arise/worsen during this 8 hour period check CIWA-Ar. If CIWA-Ar is 5 or greater, initiate medication as score indicates. *CIWA-Ar score 5-9: give diazepam 2.5 mg. If CIWA-Ar score stays the same or increases in 10 minutes, give additional diazepam 2.5 mg x 1 and then reassess CIWA-Ar score in 4 hours. *CIWA-Ar score 10-15: give diazepam 5 mg. If CIWA-Ar score stays the same or increases in 10 minutes, give additional diazepam 5 mg x 1 and then reassess CIWA-Ar score in 1 hour. *CIWA-Ar score 16 or greater: give diazepam 10 mg. If CIWA-Ar score stays the same or increases in 10 minutes, give additional diazepam 5 mg x 1 and then reassess CIWA-Ar score in 30 minutes. *If CIWA-Ar score 16 or greater x 3 after dosing with benzodiazepines: contact Practitioner to transfer to ICU/Critical Care team. If escalating CIWA-Ar symptoms/score or patient condition declining within reassessment window, review MAR for adjunct medication orders (e.g., haloperidol or clonidine) or contact Practitioner for one-time orders or permission to advance to next level before the scheduled time., Indications: alcohol withdrawal Given 05/09/2023 8:02 AM PATTERN CUTTER 5 mg diazePAM (VALIUM) tablet 5-10 mg 5-10 mg, Oral, Q30MIN PRN, Using CIWA Scale, Starting on 05/09/23 at 1007, Until Wed05/10/23 at 1421, Monitor CIWA-Ar frequency per nursing order If CIWA-Ar score is: *9 or less: GIVE NO MEDICATION *10-15: give 5 mg *16 or greater: give 10 mg folic acid tablet 1 mg 1 mg, Oral, DAILY, First dose (after last modification) on 05/09/23 at 0900, Until Discontinued Given 05/10/2023 7:47 AM PATTERN CUTTER 1 mg Given 05/09/2023 8:02 AM PATTERN CUTTER 1 mg gabapentin (NEURONTIN) capsule 600 mg 600 mg, Oral, TID, First dose (after last modification) on 05/08/23 at 2100, Until Discontinued, Swallow whole. Given 05/09/2023 8:02 AM PATTERN CUTTER 600 mg Given 05/08/2023 8:58 PM PATTERN CUTTER 600 mg gabapentin (NEURONTIN) capsule 600 mg 600 mg, Oral, TID, First dose (after last modification) on 05/09/23 at 1400, Until Discontinued, Swallow whole., Indications: Alcohol Withdrawal Syndrome Given 05/10/2023 7:48 AM PATTERN CUTTER 600 mg Given 05/09/2023 8:30 PM PATTERN CUTTER 600 mg Given 05/09/2023 1:12 PM PATTERN CUTTER 600 mg lidocaine (ASPERCREAM) 4 % patch 1 Patch 1 Patch, Transdermal, DAILY, First dose (after last modification) on 05/09/23 at 0900, Until Discontinued, Apply patch to hip. Patch may remain in place for up to 12 hours in any 24 hour period, i.e. patches placed at 0800 should be removed at 2000. May cut patch to appropriate size. Patch Applied 05/10/2023 7:47 AM PATTERN CUTTER 1 Patch Other (Comment) methocarbamol (ROBAXIN) tablet 500 mg 500 mg, Oral, TID PRN, Muscle Spasms, Starting on 05/08/23 at 1844, Until Wed05/10/23 at 1022 Given 05/09/2023 4:55 PM PATTERN CUTTER 500 mg metoprolol succinate (TOPROL XL) extended release tablet 25 mg 25 mg, Oral, DAILY, First dose (after last modification) on 05/09/23 at 0900, Until Discontinued, Tablet may be split in half, but not crushed. Given 05/10/2023 7:48 AM PATTERN CUTTER 25 mg Given 05/09/2023 8:02 AM PATTERN CUTTER 25 mg OLANZapine (ZyPREXA) 10 mg in sterile water 2 mL injection 10 mg, Intramuscular, ONCE PRN, Agitation, For MIAHTAPS Score 5 or greater, Starting on 05/08/23 at 1839, For 1 dose, Give 1x for MIAHTAPS score 5 or greater, notify Practitioner when given, communicate patient's response. DO NOT GIVE WITHIN 60 MINUTES OF PARENTERAL BENZODIAZEPINES. Add 2.1 mL of sterile water for injection to 10 mg vial of olanzapine for a final concentration of 5 mg/mL OLANZapine (ZyPREXA) tablet 5 mg 5 mg, Oral, ONCE PRN, Other, For MIAHTAPS Score 3-4, Starting on 3/2/24 at 1839, Until 05/10/23 at 1421, For 1 dose, Give 1x for MIAHTAPS score 3-4. Notify Practitioner in 60 minutes of MIAHTAPS medication administration with patient response. pantoprazole DR (PROTONIX) tablet 40 mg 40 mg, Oral, DAILY AT 0600, First dose (after last modification) on 05/09/23 at 0600, Until Discontinued Given 05/10/2023 6:32 AM PATTERN CUTTER 40 mg Given 05/09/2023 6:53 AM PATTERN CUTTER 40 mg polyethylene glycol (MIRALAX) oral powder 17 g 17 g, Oral, DAILY PRN, Constipation, No stool in the last 2 days, Starting on 05/08/23 at 1844, Until 05/10/23 at 1421, Cumulative bowel medication orders. Administer based on medications available on MAY. If no stool in last day start Senna BID PRN no stool, if no stool in last 2 days add Miralax DAILY PRN no stool, if no stool in last 3 days add bisacodyl suppository DAILY PRN until patient stools. When patient stools, stop giving PRN meds and continue monitoring for bowel activity. When no stools X 1 day, begin regimen again until patient stools. QUEtiapine (SEROquel) tablet 200 mg 200 mg, Oral, HS, First dose (after last modification) on 05/08/23 at 2100, Until Discontinued Given 05/08/2023 8:58 PM PATTERN CUTTER 200 mg QUEtiapine (SEROquel) tablet 400 mg 400 mg, Oral, HS, First dose (after last modification) on 05/09/23 at 2100, Until Discontinued, Indications: Bipolar Mood Disorder Given 05/09/2023 8:30 PM PATTERN CUTTER 400 mg senna (SENOKOT) tablet 2 Tablet 2 Tablet, Oral, BID PRN, Constipation, No stool in the last day, Starting on 05/08/23 at 1844, Until 05/10/23 at 1421, Cumulative bowel medication orders. Administer based on medications available on MAY. If no stool in last day start Senna BID PRN no stool, if no stool in last 2 days add Miralax DAILY PRN no stool, if no stool in last 3 days add bisacodyl suppository DAILY PRN until patient stools. When patient stools, stop giving PRN meds and continue monitoring for bowel activity. When no stools X 1 day, begin regimen again until patient stools. thiamine (VITAMIN B-1) tablet 200 mg 200 mg, Oral, DAILY, First dose (after last modification) on 05/09/23 at 0900, Until Discontinued Given 05/10/2023 7:48 AM PATTERN CUTTER 200 mg Given 05/09/2023 8:02 AM PATTERN CUTTER 200 mg documented in this encounter Active and Recently Administered Medications Times are shown in PATTERN CUTTER. Scheduled Medication Order 05/08/2023 05/09/2023 05/10/2023 aspirin chewable tablet 81 mg 81 mg, Oral, DAILY, First dose (after last modification) on 05/09/23 at 0900, Until Discontinued 801 (Given - Provider: Jesika Welch RN) 0749 (Given - Provider: Jesika Welch RN)0900 (Canceled Entry - Provider: Jesika Welch RN) atorvastatin (LIPITOR) tablet 40 mg 40 mg, Oral, DAILY - 1999, First dose (after last modification) on 05/08/23 at 2000, Until Discontinued 2057 (Given - Provider: Ángel Galicia RN) 2031 (Given - Provider: Anca Finney RN) diazePAM (VALIUM) tablet 10 mg 10 mg, Oral, BID, First dose on 05/09/23 at 1400, Until Discontinued, Indications: Alcohol Withdrawal Syndrome 1313 (Given - Provider: Jesika Welch RN)2030 (Given - Provider: Anca Finney, LAVERN) 0748 (Given - Provider: Jesika Welch RN)0900 (Canceled Entry - Provider: Jesika Welch RN) folic acid tablet 1 mg 1 mg, Oral, DAILY, First dose (after last modification) on 05/09/23 at 0900, Until Discontinued 801 (Given - Provider: Jesika Welch RN) 0747 (Given - Provider: Jesika Welch RN)0900 (Canceled Entry - Provider: Jesika Welch RN) gabapentin (NEURONTIN) capsule 600 mg (CANCELED) 600 mg, Oral, TID, First dose (after last modification) on 05/08/23 at 2100, Until Discontinued, Swallow whole. 2057 (Given - Provider: Ángel Galicia RN) 0802 (Given - Provider: Jesika Welch RN) gabapentin (NEURONTIN) capsule 600 mg 600 mg, Oral, TID, First dose (after last modification) on 05/09/23 at 1400, Until Discontinued, Swallow whole., Indications: Alcohol Withdrawal Syndrome 1312 (Given - Provider: Jesika Welch RN)2030 (Given - Provider: Anca Finney RN) 0748 (Given - Provider: Jesika Welch RN)0900 (Canceled Entry - Provider: Jesika Welch RN) lidocaine (ASPERCREAM) 4 % patch 1 Patch 1 Patch, Transdermal, DAILY, First dose (after last modification) on 05/09/23 at 0900, Until Discontinued, Apply patch to hip. Patch may remain in place for up to 12 hours in any 24 hour period, i.e. patches placed at 0800 should be removed at 2000. May cut patch to appropriate size. 0803 (Not Given - Provider: Jesika Welch RN - Reason: Patient/family refused) 0746 (Patch Removed - Provider: Jesika Welhc RN)0747 (Patch Applied - Provider: Jesika Welch RN)0900 (Canceled Entry - Provider: Jesika Welch RN) metoprolol succinate (TOPROL XL) extended release tablet 25 mg 25 mg, Oral, DAILY, First dose (after last modification) on 05/09/23 at 0900, Until Discontinued, Tablet may be split in half, but not crushed. 0802 (Given - Provider: Jesika Welch RN) 0748 (Given - Provider: Jesika Welch RN)0900 (Canceled Entry - Provider: Jesika Welch RN) pantoprazole DR (PROTONIX) tablet 40 mg 40 mg, Oral, DAILY AT 0600, First dose (after last modification) on 05/09/23 at 0600, Until Discontinued 652 (Given - Provider: Radha Mao RN) 06 (Given - Provider: Jaqui Head RN) QUEtiapine (SEROquel) tablet 200 mg (CANCELED) 200 mg, Oral, HS, First dose (after last modification) on 05/08/23 at 2100, Until Discontinued 2057 (Given - Provider: Ángel Galicia RN) QUEtiapine (SEROquel) tablet 400 mg 400 mg, Oral, HS, First dose (after last modification) on 05/09/23 at 2100, Until Discontinued, Indications: Bipolar Mood Disorder 2029 (Given - Provider: Anca Finney RN) thiamine (VITAMIN B-1) tablet 200 mg 200 mg, Oral, DAILY, First dose (after last modification) on 05/09/23 at 0900, Until Discontinued 0802 (Given - Provider: Jesika Welch, RN) 0748 (Given - Provider: Jesika Welch, RN)0900 (Canceled Entry - Provider: Jesika Welch, RN) PRN Medication Order 05/08/2023 05/09/2023 05/10/2023 acetaminophen (TYLENOL) tablet 650 mg 650 mg, Oral, Q6H PRN, Pain/Fever, Initially give acetaminophen for patient with mild pain., Starting on 05/08/23 at 1839, Until 05/10/23 at 1421, Initially give acetaminophen for patient with mild pain. Acetaminophen may be given WITH other pain medications as adjunct pain relief. Do not give two acetaminophen containing medications within 4 hours of each other. Max apap 4 grams per 24 hours in all forms 2010 (Not Given - Provider: Ángel Galicia RN - Reason: Patient/family refused) 0640 (Given - Provider: Jaqui Head RN) benzocaine-menthol (Chloraseptic) lozenge 1 Lozenge 1 Lozenge, Oral, Q2H PRN, Throat Pain, Cough, Starting on 05/08/23 at 1843, Until 05/10/23 at 1421 bisacodyl (DULCOLAX) rectal suppository 10 mg(Linked Group 1) 10 mg, Rectal, DAILY PRN, Constipation, No stool in the last 3 days, Starting on 05/08/23 at 1844, Until 05/10/23 at 1421, Cumulative bowel medication orders. Administer based on medications available on MAY. If no stool in last day start Senna BID PRN no stool, if no stool in last 2 days add Miralax DAILY PRN no stool, if no stool in last 3 days add bisacodyl suppository DAILY PRN until patient stools. When patient stools, stop giving PRN meds and continue monitoring for bowel activity. When no stools X 1 day, begin regimen again until patient stools. Do not give if Absolute Neutrophil Count (ANC) is 1 k/cmm or less OR platelet count is 50 k/cmm or less. calcium carbonate (TUMS) chewable tablet 1,000 mg 1,000 mg, Oral, Q4H PRN, Heartburn, Upset Stomach, Starting on 05/08/23 at 1839, Until 05/10/23 at 1421, For indigestion/upset stomach cloNIDine (CATAPRES) tablet 0.1 mg 0.1 mg, Oral, Q4H PRN, Other, Give for SBP greater than 160 and/or DBP greater than 110. DO NOT GIVE if HR less than 70., Starting on 05/08/23 at 1843, Until 05/10/23 at 1421, Call practitioner for additional orders if elevated SBP or DBP and HR less than 70., Indications: Alcohol withdrawal associated hypertension 2002 (Not Given - Provider: Ángel Galicia RN - Reason: Patient/family refused)2057 (Given - Provider: Ángel Galicia RN) 075 (Given - Provider: Jesika Welch RN) cyclobenzaprine (FLEXERIL) tablet 10 mg 10 mg, Oral, TID PRN, Muscle Spasms, Pain, Starting on 05/10/23 at 1008, Until 05/10/23 at 1421 diazePAM (VALIUM) tablet 2.5-10 mg (CANCELED)(Linked Group 2) 2.5-10 mg, Oral, Q30MIN PRN, Alcohol Withdrawal Symptoms, Starting on 05/08/23 at 1843, Until 05/09/23 at 0956, If patient has scheduled diazepam, use PRN dose if it is more than 1 hour until next scheduled dose; if it's within 1 hour of next scheduled dose give scheduled dose early. Give oral/enteral dose if able; give IV dose if unable to give oral/enteral dose. Dosing Guidelines: *CIWA-Ar score 0-4: No diazepam dosing indicated. Reassess CIWA-Ar score in 8 hours. If symptoms arise/worsen during this 8 hour period check CIWA-Ar. If CIWA-Ar is 5 or greater, initiate medication as score indicates. *CIWA-Ar score 5-9: give diazepam 2.5 mg. If CIWA-Ar score stays the same or increases in 10 minutes, give additional diazepam 2.5 mg x 1 and then reassess CIWA-Ar score in 4 hours. *CIWA-Ar score 10-15: give diazepam 5 mg. If CIWA-Ar score stays the same or increases in 10 minutes, give additional diazepam 5 mg x 1 and then reassess CIWA-Ar score in 1 hour. *CIWA-Ar score 16 or greater: give diazepam 10 mg. If CIWA-Ar score stays the same or increases in 10 minutes, give additional diazepam 5 mg x 1 and then reassess CIWA-Ar score in 30 minutes. *If CIWA-Ar score 16 or greater x 3 after dosing with benzodiazepines: contact Practitioner to transfer to ICU/Critical Care team. If escalating CIWA-Ar symptoms/score or patient condition declining within reassessment window, review MAR for adjunct medication orders (e.g., haloperidol or clonidine) or contact Practitioner for one-time orders or permission to advance to next level before the scheduled time., Indications: alcohol withdrawal 0802 (Given - Provider: Jesika Welch, LAVERN) diazePAM (VALIUM) tablet 5-10 mg 5-10 mg, Oral, Q30MIN PRN, Using CIWA Scale, Starting on 05/09/23 at 1007, Until 05/10/23 at 1421, Monitor CIWA-Ar frequency per nursing order If CIWA-Ar score is: *9 or less: GIVE NO MEDICATION *10-15: give 5 mg *16 or greater: give 10 mg melatonin tablet 6 mg 6 mg, Oral, HS PRN, Sedation, Starting on 05/08/23 at 1844, Until 05/10/23 at 1421 methocarbamol (ROBAXIN) tablet 500 mg (CANCELED) 500 mg, Oral, TID PRN, Muscle Spasms, Starting on 05/08/23 at 1844, Until 05/10/23 at 1022 1655 (Given - Provider: Anca Finney RN) OLANZapine (ZyPREXA) 10 mg in sterile water 2 mL injection(Linked Group 3) 10 mg, Intramuscular, ONCE PRN, Agitation, For MIAHTAPS Score 5 or greater, Starting on 05/08/23 at 1839, For 1 dose, Give 1x for MIAHTAPS score 5 or greater, notify Practitioner when given, communicate patient's response. DO NOT GIVE WITHIN 60 MINUTES OF PARENTERAL BENZODIAZEPINES. Add 2.1 mL of sterile water for injection to 10 mg vial of olanzapine for a final concentration of 5 mg/mL OLANZapine (ZyPREXA) tablet 5 mg(Linked Group 3) 5 mg, Oral, ONCE PRN, Other, For MIAHTAPS Score 3-4, Starting on 05/08/23 at 1839, Until 05/10/23 at 1421, For 1 dose, Give 1x for MIAHTAPS score 3-4. Notify Practitioner in 60 minutes of MIAHTAPS medication administration with patient response. polyethylene glycol (MIRALAX) oral powder 17 g(Linked Group 1) 17 g, Oral, DAILY PRN, Constipation, No stool in the last 2 days, Starting on 05/08/23 at 1844, Until 05/10/23 at 1421, Cumulative bowel medication orders. Administer based on medications available on MAY. If no stool in last day start Senna BID PRN no stool, if no stool in last 2 days add Miralax DAILY PRN no stool, if no stool in last 3 days add bisacodyl suppository DAILY PRN until patient stools. When patient stools, stop giving PRN meds and continue monitoring for bowel activity. When no stools X 1 day, begin regimen again until patient stools. senna (SENOKOT) tablet 2 Tablet(Linked Group 1) 2 Tablet, Oral, BID PRN, Constipation, No stool in the last day, Starting on 05/08/23 at 1844, Until 05/10/23 at 1421, Cumulative bowel medication orders. Administer based on medications available on MAY. If no stool in last day start Senna BID PRN no stool, if no stool in last 2 days add Miralax DAILY PRN no stool, if no stool in last 3 days add bisacodyl suppository DAILY PRN until patient stools. When patient stools, stop giving PRN meds and continue monitoring for bowel activity. When no stools X 1 day, begin regimen again until patient stools. Linked Groups Order Group 1: senna (SENOKOT) tablet 2 TabletJump to med 2 Tablet, Oral, BID PRN, Constipation, No stool in the last day, Starting on 05/08/23 at 1844, Until 05/10/23 at 1421, Cumulative bowel medication orders. Administer based on medications available on MAY. If no stool in last day start Senna BID PRN no stool, if no stool in last 2 days add Miralax DAILY PRN no stool, if no stool in last 3 days add bisacodyl suppository DAILY PRN until patient stools. When patient stools, stop giving PRN meds and continue monitoring for bowel activity. When no stools X 1 day, begin regimen again until patient stools. And polyethylene glycol (MIRALAX) oral powder 17 gJump to med 17 g, Oral, DAILY PRN, Constipation, No stool in the last 2 days, Starting on 05/08/23 at 1844, Until 05/10/23 at 1421, Cumulative bowel medication orders. Administer based on medications available on MAY. If no stool in last day start Senna BID PRN no stool, if no stool in last 2 days add Miralax DAILY PRN no stool, if no stool in last 3 days add bisacodyl suppository DAILY PRN until patient stools. When patient stools, stop giving PRN meds and continue monitoring for bowel activity. When no stools X 1 day, begin regimen again until patient stools. And bisacodyl (DULCOLAX) rectal suppository 10 mgJump to med 10 mg, Rectal, DAILY PRN, Constipation, No stool in the last 3 days, Starting on 05/08/23 at 1844, Until 05/10/23 at 1421, Cumulative bowel medication orders. Administer based on medications available on MAY. If no stool in last day start Senna BID PRN no stool, if no stool in last 2 days add Miralax DAILY PRN no stool, if no stool in last 3 days add bisacodyl suppository DAILY PRN until patient stools. When patient stools, stop giving PRN meds and continue monitoring for bowel activity. When no stools X 1 day, begin regimen again until patient stools. Do not give if Absolute Neutrophil Count (ANC) is 1 k/cmm or less OR platelet count is 50 k/cmm or less. Group 2: diazePAM (VALIUM) tablet 2.5-10 mg (CANCELED)Jump to med 2.5-10 mg, Oral, Q30MIN PRN, Alcohol Withdrawal Symptoms, Starting on 05/08/23 at 1843, Until 05/09/23 at 0956, If patient has scheduled diazepam, use PRN dose if it is more than 1 hour until next scheduled dose; if it's within 1 hour of next scheduled dose give scheduled dose early. Give oral/enteral dose if able; give IV dose if unable to give oral/enteral dose. Dosing Guidelines: *CIWA-Ar score 0-4: No diazepam dosing indicated. Reassess CIWA-Ar score in 8 hours. If symptoms arise/worsen during this 8 hour period check CIWA-Ar. If CIWA-Ar is 5 or greater, initiate medication as score indicates. *CIWA-Ar score 5-9: give diazepam 2.5 mg. If CIWA-Ar score stays the same or increases in 10 minutes, give additional diazepam 2.5 mg x 1 and then reassess CIWA-Ar score in 4 hours. *CIWA-Ar score 10-15: give diazepam 5 mg. If CIWA-Ar score stays the same or increases in 10 minutes, give additional diazepam 5 mg x 1 and then reassess CIWA-Ar score in 1 hour. *CIWA-Ar score 16 or greater: give diazepam 10 mg. If CIWA-Ar score stays the same or increases in 10 minutes, give additional diazepam 5 mg x 1 and then reassess CIWA-Ar score in 30 minutes. *If CIWA-Ar score 16 or greater x 3 after dosing with benzodiazepines: contact Practitioner to transfer to ICU/Critical Care team. If escalating CIWA-Ar symptoms/score or patient condition declining within reassessment window, review MAR for adjunct medication orders (e.g., haloperidol or clonidine) or contact Practitioner for one-time orders or permission to advance to next level before the scheduled time., Indications: alcohol withdrawal Or diazePAM (VALIUM) injection 2.5-10 mg (CANCELED) 2.5-10 mg, Intravenous, Q30MIN PRN, Alcohol Withdrawal Symptoms, Starting on 05/08/23 at 1843, Until 05/09/23 at 0956, If patient has scheduled diazepam, use PRN dose if it is more than 1 hour until next scheduled dose; if it's within 1 hour of next scheduled dose give scheduled dose early. Give oral/enteral dose if able; give IV dose if unable to give oral/enteral dose. Rate of IV push: do not exceed 5mg/min in adults or 1-2mg/min in children Dosing Guidelines: *CIWA-Ar score 0-4: No diazepam dosing indicated. Reassess CIWA-Ar score in 8 hours. If symptoms arise/worsen during this 8 hour period check CIWA-Ar. If CIWA-Ar is 5 or greater, initiate medication as score indicates. *CIWA-Ar score 5-9: give diazepam 2.5 mg. If CIWA-Ar score stays the same or increases in 10 minutes, give additional diazepam 2.5 mg x 1 and then reassess CIWA-Ar score in 4 hours. *CIWA-Ar score 10-15: give diazepam 5 mg. If CIWA-Ar score stays the same or increases in 10 minutes, give additional diazepam 5 mg x 1 and then reassess CIWA-Ar score in 1 hour. *CIWA-Ar score 16 or greater: give diazepam 10 mg. If CIWA-Ar score stays the same or increases in 10 minutes, give additional diazepam 5 mg x 1 and then reassess CIWA-Ar score in 30 minutes. *If CIWA-Ar score 16 or greater x 3 after dosing with benzodiazepines: contact Practitioner to transfer to ICU/Critical Care team. If escalating CIWA-Ar symptoms/score or patient condition declining within reassessment window, review MAR for adjunct medication orders (e.g. haloperidol or clonidine) or contact Practitioner for one-time orders or permission to advance to next level before the scheduled time., Indications: alcohol withdrawal Group 3: OLANZapine (ZyPREXA) tablet 5 mgJump to med 5 mg, Oral, ONCE PRN, Other, For MIAHTAPS Score 3-4, Starting on 05/08/23 at 1839, Until 05/10/23 at 1421, For 1 dose, Give 1x for MIAHTAPS score 3-4. Notify Practitioner in 60 minutes of MIAHTAPS medication administration with patient response. Or OLANZapine (ZyPREXA) 10 mg in sterile water 2 mL injectionJump to med 10 mg, Intramuscular, ONCE PRN, Agitation, For MIAHTAPS Score 5 or greater, Starting on 05/08/23 at 1839, For 1 dose, Give 1x for MIAHTAPS score 5 or greater, notify Practitioner when given, communicate patient's response. DO NOT GIVE WITHIN 60 MINUTES OF PARENTERAL BENZODIAZEPINES. Add 2.1 mL of sterile water for injection to 10 mg vial of olanzapine for a final concentration of 5 mg/mL documented in this encounter Care Teams Wrinkle Chaser Relationship Specialty Start Date End Date Briana Vazquez PA-C [id number] [place] [address] PCP - General Physician Solutions Architect 11/29/19 documented as of this encounter
--- OUTSIDE RECORDS SUMMARY | 2023-07-18 17:01 | XMS_ITS | Encounter Summary ---
Author Name Unknown Organization [facility] Address [address] [place] [id number] Care Team Providers Care Community Living Instructor Name Role Phone Briana Vazquez PA-C Primary Care Provider [phone] Reason for Visit * Auth/Cert (Routine) Specialty Diagnoses / Procedures Referred By Contac t Referred To Contact Diagnoses Acute respiratory failure with hypoxia (HRC) Syncope and collapse USAMA (acute kidney injury) (HRC) Hypokalemia Acute electrocardiogram changes Elevated troponin Syncope and collapse USAMA (acute kidney injury) (HRC) Hypokalemia Acute electrocardiogram changes Elevated troponin Acute respiratory failure with hypoxia (HRC) Referral ID Status Reason Start Date Expiration Date Visits Re quested Visits Authorized [id number] 1 1 Encounter Details Date Type Department Care Team (Late st Contact Info) Description 05/07/2023 4:45 PM DIRECTOR PHONE Ancillary Procedure [facility] Ultrasound [address] [place] [id number] Social History Tobacco Use Types Packs/Day Years [...] place to sleep or slept in a longterm (including now)? No 05/07/2023 Sex and Gender Information Value Date Recorded Sex Assigned at Not on file Gender Identity Not on file Sexual Orientation Not on file documented as of this encounter Plan of Treatment Not on file documented as of this encounter Procedures Procedure Name Priority Date/Time Associated Diagnosis Comments US RENAL W BLADDER Routine 05/07/2023 8: 19 PM DIRECTOR PHONE documented in this encounter Results * US Renal W Bladder (05/07/2023 8:19 PM DIRECTOR PHONE) Anatomical Region Laterality Modality Abdomen, Pelvis Ultrasound 05/07/2023 8:19 PM DIRECTOR PHONE Narrative 05/07/2023 8:22 PM DIRECTOR PHONE EXAM: US RENAL W BLADDER LOCATION: [facility] HOSPITAL DATE: 05/07/2023 INDICATION: USAMA COMPARISON: None. TECHNIQUE: Routine Bilateral Renal and Bladder Ultrasound. FINDINGS: RIGHT KIDNEY: 13.4 cm. Normal without hydronephrosis or masses. LEFT KIDNEY: 15.1 cm. No hydronephrosis. Benign-appearing 2.2 cm cyst at the midpole. No follow-up needed. BLADDER: Normal. IMPRESSION: 1. ??No hydronephrosis. Procedure Note Ángel Zamora MD - 05/07/2023 EXAM: US RENAL W BLADDER LOCATION: [facility] HOSPITAL DATE: 05/07/2023 INDICATION: USAMA COMPARISON: None. TECHNIQUE: Routine Bilateral Renal and Bladder Ultrasound. FINDINGS: RIGHT KIDNEY: 13.4 cm. Normal without hydronephrosis or masses. LEFT KIDNEY: 15.1 cm. No hydronephrosis. Benign-appearing 2.2 cm cyst atthe midpole. No follow-up needed. BLADDER: Normal. IMPRESSION: 1. No hydronephrosis. Zaki Velásquez MD [facility] documented in this encounter Visit Diagnoses Not on filedocumented in this encounter Care Teams Community Living Instructor Relationship Specialty Start Date End Date Briana Vazquez, PAAshleyC [address] [place] [address] PCP - General Physician Hair Stylist 11/29/19 documented as of this encounter
--- OUTSIDE RECORDS SUMMARY | 2023-07-18 17:01 | XMS_ITS | Encounter Summary ---
Author Name Unknown Organization [facility] Address [address], [place] [address] Care Team Providers Care Telephone Clerk Name Role Phone Briana Vazquez PA-C Primary Care Provider [phone] Reason for Referral * Procedure/Equipment (Routine) - Incomplete Specialty Diagnoses / Procedures Referred By Contac t Referred To Contact Procedures US Renal W Bladder Zaki Velásquez MD [address] [place] [id number] Referral ID Status Reason Start Date Expiration Date V isits Requested Visits Authorized [id number] Incomplete 05/07/2023 08/05/2024 1 1 GEMENT INFORMATION SYSTEMS DIRECTOR * Procedure/Equipment (Routine) - Incomplete Specialty Diagnoses / Procedures Referred By Contac t Referred To Contact Procedures CT Angio Chest W IV Cont PE Study Shanta Kaur MD [address] [place] [id number] Referral ID Status Reason Start Date Expiration Date V isits Requested Visits Authorized [id number] Incomplete 05/07/2023 08/05/2024 1 1 GEMENT INFORMATION SYSTEMS DIRECTOR * (Routine) - Incomplete Specialty Diagnoses / Procedures Referred By Contac t Referred To Contact Procedures POC US Basic Cardiac Shanta Kaur MD [address] [place] [id number] Referral ID Status Reason Start Date Expiration Date V isits Requested Visits Authorized [id number] Incomplete 05/07/2023 08/05/2024 1 1 GEMENT INFORMATION SYSTEMS DIRECTOR Reason for Visit * Reason Comments DIZZINESS Legal blood draw * Auth/Cert (Routine) Specialty Diagnoses / Procedures [...] Expiration Date Visits Re quested Visits Authorized [id number] 1 1 Encounter Details Date Type Department Care Team (Latest Contact Info) Description 05/07/2023 3:28 AM MANAGEMENT INFORMATION SYSTEMS DIRECTOR - 05/08/2023 6:04 PM MANAGEMENT INFORMATION SYSTEMS DIRECTOR Hospital Encounter [facility] [place] [id number] Shanta Kaur MD [address] [place] [address] [id number] Trish Patel MD [address] [place] [phone] Zaki Velásquez MD [address] [place] [phone] Syncope and collapse (Primary Dx); USAMA (acute kidney injury) (HRC); Hypokalemia; Acute electrocardiogram changes; Elevated troponin; Acute respiratory failure with hypoxia (HRC); Symptomatic hypotension; Blood alcohol request Discharge Disposition: Inpatient Psychiatric Facility Social History Tobacco Use Types Packs/Day Years Used Date Smoking Tobacco: Former Cigarettes 0.5 3 Cigars Smokeless Tobacco: Never Tobacco Cessation:Counseling Given: Not Answered Comments:Occasional cigar Alcohol Use Standard Drinks/Week Comments [...] place to sleep or slept in a jail (including now)? No 05/07/2023 Sex and Gender Information Value Date Recorded Sex Assigned at Not on file Gender Identity Not on file Sexual Orientation Not on file documented as of this encounter Last Filed Vital Signs Vital Sign Reading Time Taken Comments Blood Pressure 179/89 05/08/2023 3:23 PM MANAGEMENT INFORMATION SYSTEMS DIRECTOR Pulse 72 05/08/2023 3:23 PM MANAGEMENT INFORMATION SYSTEMS DIRECTOR Temperature 37.1 ??C (98.7 ??F) 05/08/2023 3:23 PM CS T Respiratory Rate 18 05/08/2023 3:23 PM MANAGEMENT INFORMATION SYSTEMS DIRECTOR Oxygen Saturation 97% 05/08/2023 3:23 PM MANAGEMENT INFORMATION SYSTEMS DIRECTOR Inhaled Oxygen Concentration - - Weight 92.3 kg (203 lb 6.4 oz) 05/07/2023 4:05 P M MANAGEMENT INFORMATION SYSTEMS DIRECTOR Height 185.4 cm (6' 1) 05/07/2023 4:05 PM MANAGEMENT INFORMATION SYSTEMS DIRECTOR Body Mass Index 26.84 05/07/2023 4:05 PM MANAGEMENT INFORMATION SYSTEMS DIRECTOR documented in this encounter Discharge Summaries * Jessica Braswell MD - 05/08/2023 2:36 PM CST [facility] Medicine Discharge Summary Patient ID: Nicanor Alvarado [id number] y.o. 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 His troponin was elevated on admission to 0.13 and continued to be elevated on serial checks with nonspecific ST changes on EKG. Patient was started on heparin infusion and aspirin 325 mg in the ED and was evaluated by cardiology for ACS. After reviewing the case, cardiology had low suspicion of ACS and attributed elevated troponin to demand ischemia (type II CO) in the setting of severe hypotension on admission. Because patient had minimal anginal symptoms, normal LVEF, USAMA, and had ongoing polysubstance abuse/recent fall history which would make him a poor candidate for DAPT, cardiology recommended medical management during the hospitalization and outpatient follow-up in 4 to 6 weeks for further work-up if needed at that time. Hypotension (BP 69/39) in the ED was fully responsive after 2 L of IVF. Etiology of hypotension is thought to be due to severe dehydration as patient reported not eating for many days prior to comingto the hospital. Patient also presented with elevated creatinine 2.29. Given lack of records no baseline creatinine is available. Urine studies are suggestive of pre-renal etiology (dehydration) but there may be component of intrinsic disease with chronic NSAID use. As patient's baseline creatinine is not established, would recommend daily BMP to follow-up on patient's creatinine. At the time of discharge from medicine service, creatinine was downtrending. Patient has been seen by addiction medicine, psychiatry medicine, and pain management team for bipolar disorder and substance use disorder. He has refused assistance from pain management. Patient hadbeen put on CIWA protocol and high dose thiamine and folate per addiction medicine team for potential alcohol withdrawal. Psychiatry has held his home medications on 05/07/2023 due to concerns for ongoing cardiac issues. As of 05/08/2023 4:00 PM, patient has not required benzodiazepine for alcohol withdrawal. His CIWA scores have ranged between 3-5. Medically, patient has been stable, only on monitoring for creatinine trend. However around 11:30 AM 05/08/2023, patient has requested to leave the hospital with PIV removed. Shortly after, he left the hospital room despite being holdable due to concerns for safety surrounding substance use and possible kennedi. Hold order has been placed on the patient. With escalations in his behaviors and concerns for ongoing auditory hallucinations (strangers, relatives telling that he should ), case was discussed with the psychiatry team who recommended transfer to inpatient psychiatry. SUMMARY *Elevated troponin, resolved. Likely due to demand ischemia. Will plan for outpatient work-up * Hypotension resolved. Likely due to severe dehydration. *Major medication changes: Metoprolol 25mg daily , Atorvastatin 80mg, continue aspirin 80mg *Need monitoring creatinine to establish baseline for elevated creatinine of unknown chronicity. Recommend medicine consult for BMP monitoring. Please see the admission history and physical for full details. Hospital Course, by problem: #Elevated troponin , peaked #R/O Demand ischemia (Type 2 CO) Patient is a poor historian but reports intermittent chest pain. Troponin elevated on admission 0.13, peaked to 1.02 in approximately 12 hours. EKG showed nonspecific ST changes in V1,V2, T wave inversions in lateral leads. No recent prior EKGs available for comparison. Patient has no known prior history of CAD; also no significant arterial calcification seen on CTPE. Per cardiology, elevated troponin likely secondary to demand ischemia (type 2 CO) in the setting of significant hypotension seenduring ED admission (69/39). Given minimal symptoms, normal LVEF on echo, USAMA, and concern for polysubstance abuse/recent fall history which would make him a poor candidate for DAPT, cardiology recomm ends medical management at this time. -Cardiology consult, appreciate recommendation -s/p asprin 325mg in the ED -s/p heparin infusion -Started metoprolol succinate 25mg daily. (FLOOR SUPERVISOR med filled as metoprolol succinate 100mg 05/06/2023) -Continue aspirin 81mg -Increase atorvastatin 40mg (FLOOR SUPERVISOR atorvastatin 20mg) -TTE : normal LVEF w/o significant valvular abnormalities -EKG if new chest pain -Outpatient cardiology follow-up in 4-6 weeks for further management -Consider starting amlodipine if BP is persistently high # Concern for syncopal episode # Hypotension, resolved, likely secondary to dehydration Patient had a possible syncopal episode on arrival to ED. Did not lose consciousness but felt dizzyand fell down on the group after making a sudden positional change to stand up. Patient unable to give clear history to the group underwriter on symptoms prior to his syncope. No signs of post-ictal confusion. Most suspicious for syncopal episode in the setting of severe hypotension on ED arrival (BP 69/39)due to severe dehydration (reports not eating for several days). Patient's BP was fluid responsive and improved after 2L of IVF. Orthostatic/vasovagal syncope is also possible and will monitor for future events. Repeat TTE did not show significant valvular or other structural abnormalities that could support syncopal episode. -Encourage PO intake #USAMA, possible pre-renal vs. Intrinsic Patient presented with elevated creatinine 2.29. Unclear if there is chronic component to elevated creatinine given lack of recent records. Patient reports that he was recently admitted at outside hospital and was told that his kidney was failing. Potential etiologies for acute kidney injury include poor oral intake (denies eating for several days), severe hypotension, chronic diclofenac use. UA showed hyaline casts and FeNa 0.3%, suggesting pre-renal etiology. US renal showed normal sized kidneys, w/o signs of hydronephrosis. Cr is improving after resuming diet. Will continue to monitor to establish baseline. -Check creatinine post discharge to establish baseline #Bipolar disorder, Concern for kennedi #Concern for substance use disorder including benzodiazepine, methamphetamine, #History of alcohol withdrawal, delirium tremens Patient with history of bipolar disorder but no clear records of recent treatment. He reports not eating and drinking for several days prior to coming to the hospital. Does not have pressured speech but does sound disorganized. Also reports methamphetamine use prior to coming to the hospital along with alprazolam and diclofenac (for chronic pain). No SI/HI, no hallucination or signs of psychosis seen on group underwriter's exam. -Patient will discharge to inpatient psych unit Hold FLOOR SUPERVISOR Seroquel 400 mg BID -Hold FLOOR SUPERVISOR Lexapro 20mg daily -Hold FLOOR SUPERVISOR Trazodone 200mg BID -Hold FLOOR SUPERVISOR Prazosin 2mg qHS -Patient is holdable due to concerns for safety surrounding substance use, possible kennedi. -Addiction medicine consult -[facility] protocol -High dose thiamine, folate #Chronic Lt. Hip/back pain Reports chronic Lt. Hip/back pain and has been a chronic user of diclofenac. Patient request diclofenac specifically for pain despite his poor kidney function is explained. -Pain management consult -Hold FLOOR SUPERVISOR diclofenac -Continue gabapentin 600mg TID. (At maximum dose with his creatinine) Chronic issues #HTN -Hold lisinopril with USAMA #BPH -Hold tamsulosin in the setting of hypotension #GERD -Continue pantoprazole 40mg daily Acute Hypokalemia: electrolyte replacement has been ordered. Primary care/TCU recommendations for follow up, including significant medication changes, medications being held, or recommended imaging or labs: - Pending Labs: Pending Labs Order Current Status Phosphatidylethanol (PEth), Quantitative In process Urine Drug Comprehensive Panel (with Confirmation) In process Discharge Medications: Done while pt still in hospital bed Medication List ASK your doctor about these medications atorvastatin 20 MG tablet Commonly known as: LIPITOR Ask about: Which instructions should I use? CALCIUM-VITAMIN D OR cyclobenzaprine 10 MG tablet Commonly known as: FLEXERIL desonide 0.05 % cream Commonly known as: DESOWEN Ask about: Which instructions should I use? escitalopram oxalate 20 MG tablet Commonly known as: LEXAPRO folic acid 1 MG tablet gabapentin 600 MG tablet Commonly known as: NEURONTIN Ask about: Which instructions should I use? loperamide 2 MG capsule Commonly known as: IMODIUM metoprolol succinate 100 MG 24 hour release tablet Commonly known as: TopROL XL MULTIVITAMINS OR Ask about: Which instructions should I use? omeprazole 20 MG capsule Commonly known as: PriLOSEC Ask about: Which instructions should I use? prazosin 2 MG capsule Commonly known as: MINIPRESS QUEtiapine 400 MG tablet Commonly known as: SEROquel Ask about: Which instructions should I use? rOPINIRole 2 MG tablet Commonly known as: REQUIP tamsulosin 0.4 MG Caps capsule Commonly known as: FLOMAX Ask about: Which instructions should I use? testosterone cypionate 200 MG/ML injection Commonly known as: DEPO-TESTOSTERONE thiamine 100 MG tablet Commonly known as: VITAMIN B-1 traZODone 100 MG tablet Commonly known as: DESYREL Ask about: Which instructions should I use? valACYclovir 1 g tablet Commonly known as: VALTREX Ask about: Which instructions should I use? - Consults: cardiology - Procedures and Surgeries: Cardiology, addiction medicine, psychiatry Discharge Exam: BP (!) 174/93 Pulse 85 Temp 97.5 ??F (36.4 ??C) (Oral) Resp 17 Ht 6' 1 (1.854 m) Wt 92.3kg (203 lb 6.4 oz) SpO2 97% BMI 26.84 kg/m?? General: Not in acute distress, sitting on the side of bed, eating breakfast HEENT: Non icteric sclera, dry appearing oral mucosa CV: Regular rate and rhythm, no murmurs appreciated Pulm: CTAB, No wheezes or crackles heard GI: Soft, nondistended, nontender, normoactive bowel sound. Skin: No skin on exposed rashes Lower extremity: No lower extremity edema MSK: Normal range of motion on bilateral hips. No point tenderness noted on bilateral hip joints orthighs. Neuro: Alert and oriented x 3. Psych: no SI/HI. Auditory hallucination- strangers, ,distant relatives Voices are telling that I should be Disposition: Transfer to Psychiatry Inpatient Unit Code Status: Full Code Follow up: Referrals (From admission, onward) None Significant Diagnostic Studies (imaging, labs, micro, etc), see EMR for full details: Patient was staffed with Dr. Didier Braswell MD MPH Internal Medicine PGY-1 GEMENT INFORMATION SYSTEMS DIRECTOR Associated attestation - Zaki Velásquez MD - 05/08/2023 4:56 PM MANAGEMENT INFORMATION SYSTEMS DIRECTOR Date of Service: 05/08/2023 I saw and examined the patient. I discussed the plan of care with Dr. Braswell. All labs reviewed by me.I agree with the findings and plan of care as documented in the note above by Dr Braswell. Nicanor Alvarado is a 57 y.o. M [...] the last month or so (once in [place], once in [place], [place]) and was told my kidneys are [...] hx of SI with Psych admission at [facility] [id number]: fidgety, agitated. Endorsed auditory hallucinations telling him [...] Addiction Medicine. Continue thiamine + folate. [place] IBAN here but not very significantly high scores. [...] and/or hip imaging. - Hypokalemia: replaced aggressively. EKG: Reviewed by me. Normal rate, normal sinus rhythm. Some non-specific abnormality in ST segment in leads V1-V2 and new ST segment depressions in inferior leads. Also has T-wave inversions in lateral leads. > 30 minutes spent on discharge services. Leoncio Velásquez MD 05/07/2023 documented in this encounter Discharge Instructions * Discharge Instr - Safety* Luciano Gresham [facility] - 05/08/2023 2:55 PM MANAGEMENT INFORMATION SYSTEMS DIRECTOR Call your clinic or seek medical help if you have any sudden change in your condition or if you have any of the following: {IP D/C DANGER SIGNS:[id number]} GEMENT INFORMATION SYSTEMS DIRECTOR documented in this encounter Medications at Time [...] every evening. 05/10/2023 cyclobenzaprine (FLEXERIL) 10 MG tabletIndications:Mu scle Spasm Take 1 Tablet (10 mg) by mouth three times a day as needed. Indications: Muscle Spasm 60 Tablet 05/10/2023 folic acid 1 MG tablet Take 1 Tablet (1 mg) by mouth daily. 30 Tablet 05/10/2023 gabapentin (NEURONTIN) 300 MG capsuleIndications:N europathic Pain Take 2 Capsules (600 mg) by [...] a meal. 05/10/2023 QUEtiapine (SEROQUEL) 400 MG tabletIndications:Bi polar Mood Disorder Take 2 Tablets (800 mg) by mouth daily at bedtime. Indications: Manic-Depression 05/10/2023 thiamine 100 MG tablet Take 2 Tablets (200 mg) by mouth daily. 60 Tablet 05/08/2023 06/09/2023 aspirin 81 MG chewable tablet Chew and swallow 1 Tablet (81 mg) by mouth daily. 100 Tablet 3 05/10/2023 05/10/2023 aspirin 81 MG chewable tablet Chew and swallow 1 Tablet (81 mg) by mouth daily. 100 Tablet 3 05/09/2023 05/10/2023 atorvastatin (LIPITOR) 40 MG tablet Take 1 Tablet (40 mg) by mouth every evening. 90 Tablet 3 05/10/2023 05/10/2023 atorvastatin (LIPITOR) 40 MG tablet Take 1 Tablet (40 mg) by mouth every evening. 90 Tablet 3 05/08/2023 05/10/2023 cyclobenzaprine (FLEXERIL) 10 MG tabletIndications:Mu scle Spasm Take 1 Tablet (10 mg) by mouth three times a day as needed. Indications: Muscle Spasm 60 Tablet 05/10/2023 05/10/2023 folic acid 1 MG tablet Take 1 Tablet (1 mg) by mouth daily. 05/10/2023 gabapentin (NEURONTIN) 300 MG capsule Take 2 Capsules (600 mg) by mouth three times a day. 540 Capsule 3 05/10/2023 05/10/2023 gabapentin (NEURONTIN) 300 MG capsule Take 2 Capsules (600 mg) by mouth three times a day. 540 Capsule 3 05/08/2023 05/10/2023 methocarbamol (ROBAXIN) 500 MG tablet Take 1 Tablet (500 mg) by mouth three times a day as needed. 20 Tablet 05/10/2023 05/10/2023 methocarbamol (ROBAXIN) 500 MG tablet Take 1 Tablet (500 mg) by mouth three times a day as needed. 90 Tablet 05/08/2023 05/10/2023 metoprolol succinate (TOPROL XL) 25 MG 24 hour release tablet Take 1 Tablet (25 mg) by mouth daily. 90 Tablet 3 05/10/2023 05/10/2023 metoprolol succinate (TOPROL XL) 25 MG 24 hour release tablet Take 1 Tablet (25 mg) by mouth daily. Do not start before May 09, 2023. 90 Tablet 3 05/09/2023 05/10/2023 omeprazole (PRILOSEC OTC) 20 MG enteric coated tablet Take 1 Tablet (20 mg) by mouth daily. 30 Tablet 05/08/2023 05/10/2023 documented as of this encounter Progress Notes * Jessica Braswell MD - 05/08/2023 9:45 AM CST Images from the original note were not included. [facility] Medicine Progress Note Patient Name: Nicanor Alvarado Date of Service: 05/08/2023 Assessment and Plan: Nicanor Alvarado is a 57 y.o. male who was admitted for evaluation of a elevated troponin, possibly in due to Type 2 CO in the setting of severe hypotension and USAMA. Patient is also being evaluated for bipolar disorder (concern for kennedi), polysubstance abuse and possible stimulant/alcohol withdraw al. Today's updates: - Auditory hallucinations (+) Denies SI/HI. No active plans. Inquire transfer to psych with medicine consult. - s/p diazepam once overnight - Creatinine down-trending. Monitor to establish baseline. - Troponin peaked. Uptitrating metoprolol succinate for R/O demand ischemia. #Elevated troponin , peaked #R/O Demand ischemia (Type 2 CO) Patient is a poor historian but reports intermittent chest pain. Troponin elevated on admission 0.13, peaked to 1.02 in approximately 12 hours. EKG showed nonspecific ST changes in V1,V2, T wave inversions in lateral leads. No recent prior EKGs available for comparison. Patient has no known prior history of CAD; also no significant arterial calcification seen on CTPE. Per cardiology, elevated troponin likely secondary to demand ischemia (type 2 CO) in the setting of significant hypotension seenduring ED admission (69/39). Given minimal symptoms, normal LVEF on echo, USAMA, and concern for polysubstance abuse/recent fall history which would make him a poor candidate for DAPT, cardiology recomm ends medical management at this time. -Cardiology consult, appreciate recommendation -s/p asprin 325mg in the ED -s/p heparin infusion -Started metoprolol succinate 25mg daily. ([employer]PER[employer]OR med filled as metoprolol succinate 100mg 05/06/2023) -Continue aspirin 81mg -Increase atorvastatin 40mg (FLOOR SUPERVISOR atorvastatin 20mg) -TTE : normal LVEF w/o significant valvular abnormalities -EKG if new chest pain -Outpatient cardiology follow-up in 4-6 weeks for further management -Consider starting amlodipine if BP is persistently high # Concern for syncopal episode # Hypotension, resolved, likely secondary to dehydration # Potential orthostatic hypotension vs. Vasovagal syncope Patient had a possible syncopal episode on arrival to ED. Did not lose consciousness but felt dizzyand fell down on the group after making a sudden positional change to stand up. Patient unable to give clear history to the group underwriter on symptoms prior to his syncope. No signs of post-ictal confusion. Most suspicious for syncopal episode in the setting of severe hypotension on ED arrival (BP 69/39)due to severe dehydration (reports not eating for several days). Patient's BP was fluid responsive and improved after 2L of IVF. Orthostatic/vasovagal syncope is also possible and will monitor for future events. Repeat TTE did not show significant valvular or other structural abnormalities that could support syncopal episode. -Orthostatic vitals -Encourage PO intake -Telemetry #USAMA, possible pre-renal vs. Intrinsic Patient presented with elevated creatinine 2.29. Unclear if there is chronic component to elevated creatinine given lack of recent records. Patient reports that he was recently admitted at outside hospital and was told that his kidney was failing. Potential etiologies for acute kidney injury include poor oral intake (denies eating for several days), severe hypotension, chronic diclofenac use. UA showed hyaline casts and FeNa 0.3%, suggesting pre-renal etiology. US renal showed normal sized kidneys, w/o signs of hydronephrosis. Cr is improving after resuming diet. Will continue to monitor to establish baseline. -BMP daily #Bipolar disorder, Concern for kennedi #Concern for substance use disorder including benzodiazepine, methamphetamine, #History of alcohol withdrawal, delirium tremens Patient with history of bipolar disorder but no clear records of recent treatment. He reports not eating and drinking for several days prior to coming to the hospital. Does not have pressured speech but does sound disorganized. Also reports methamphetamine use prior to coming to the hospital along with alprazolam and diclofenac (for chronic pain). No SI/HI, no hallucination or signs of psychosis seen on group underwriter's exam. -Psychiatry consult (for assessment of bipolar, capacity assessment) Hold FLOOR SUPERVISOR Seroquel 400 mg BID -Hold FLOOR SUPERVISOR Lexapro 20mg daily -Hold FLOOR SUPERVISOR Trazodone 200mg BID -Hold FLOOR SUPERVISOR Prazosin 2mg qHS -Patient is holdable due to concerns for safety surrounding substance use, possible kennedi. -Addiction medicine consult -[facility] protocol -High dose thiamine, folate #Chronic Lt. Hip/back pain Reports chronic Lt. Hip/back pain and has been a chronic user of diclofenac. Patient request diclofenac specifically for pain despite his poor kidney function is explained. -Pain management consult -Hold FLOOR SUPERVISOR diclofenac -Continue gabapentin 600mg TID. (At maximum dose with his creatinine) Chronic issues #HTN Hold lisinopril #BPH -Hold tamsulosin in the setting of hypotension #GERD -Continue pantoprazole 40mg daily Prophylaxis: Ambulation Disposition: Pending medical/psychiatric evaluation Code Status/Goals of Care: Full This patient was staffed with Dr. Velásquez. Jessica Braswell MD MPH Internal Medicine PGY-1 Subjective: Patient slept and ate well overnight. He reports hearing voices at night (strangers, distant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 rate 18, SpO2 96%. GENERAL APPEARANCE: no distress GAIT: In bed HEENT: NCAT HEART/LUNGS: respirations even MUSCULOSKELETAL EXAM: NEURO EXAM: alert PSYCHIATRIC/BEHAVIORAL/OBSERVATIONS: Pleasant GEMENT INFORMATION SYSTEMS DIRECTOR documented in this encounter OR Notes * H&P - Jessica Braswell MD - 05/07/2023 9:28 AM CST [facility] Medicine History and Physical Date of Service: 05/07/2023 PCP: Briana Vazquez PA-C HPI: Nicanor Alvarado is a 57 y.o. male with PMH of alcohol use disorder, bipolar disorder, chronic low back pain, and HTN who was admitted on 05/07/2023 due to concern for a syncopal episode in a setting of hypotension and elevated troponin. He reports that he had about 2 hospitalizations in the past month. One in [facility] (04/24/2022) for acute toxic encephalopathy, drug overdose (cannabinoids, methamphetamine), and alcohol withdrawal w/ delirium tremens which required large amount of benzo. He says he had another hospitalization in [place]. He reports that one of these hospitalizations led to ICU stay and he was told that his kidney were failing but no detailed records of outside hospital stay are available on admission. He initially came to hospital for legal blood draw as he was pulled by police officers. He reports that he was on his way to pickling tank operator his son who was arrested for DUI. Upon arrival to ED, he felt dizzy and fell on the floor with a syncopal-like episode. Patient was not able to remember the details of the event. ED course) Hypotensive on arrival 69/39, HR 96. BP was responsive to 2L of IVF. D-dimer was elevated leading to CT PE work-up. Negative for PE or consolidations. Had elevation in troponin 0.13 - and subsequent elevations on repeat draws (0.13-0.2-0.6). EKG showed nonspecific changes including T wave inversions in lateral leads. Other notable labs were creatinine 2.29 and Hb 17.6 (Hct 53.4) Patient received 325mg aspirin and was started on heparin infusion in the ED. Was briefly put on 3-4L on Nasal cannula. However, weaned down to room air upon medicine admission. Past Medical Hx, Social Hx and Family Hx have been reviewed in chart. Pertinent for this hospitalization is documented above. Current outpatient medications: Medications Prior to Admission Medication Sig atorvastatin (LIPITOR) 20 MG tablet Take 1 Tablet (20 mg) by mouth daily. CALCIUM-VITAMIN D OR Take 1 Tablet by mouth daily. cyclobenzaprine (FLEXERIL) 10 MG tablet Take 1 Tablet (10 mg) by mouth daily at bedtime. desonide (DESOWEN) 0.05 % cream Apply topically two times a day. escitalopram oxalate (LEXAPRO) 20 MG tablet Take 10mg by mouth daily for 2 weeks then increase to 20mg by mouth daily folic acid 1 MG tablet Take 1 Tablet (1 mg) by mouth daily. gabapentin (NEURONTIN) 600 MG tablet Take 1 Tablet (600 mg) by mouth three times a day. loperamide (IMODIUM) 2 MG capsule Take 1 Capsule (2 mg) by mouth 4 times daily as needed for Diarrhea. metoprolol succinate (TOPROL XL) 100 MG 24 hour release tablet Take 1 Tablet (100 mg) by mouth daily. Multiple Vitamin (MULTIVITAMINS OR) Take 1 Tablet by mouth daily. omeprazole (PRILOSEC) 20 MG capsule Take 1 Capsule (20 mg) by mouth daily. Take 1 hour before a meal. prazosin (MINIPRESS) 2 MG capsule Take 1 Capsule (2 mg) by mouth every evening. QUEtiapine (SEROQUEL) 400 MG tablet Take 2 Tablets (800 mg) by mouth daily at bedtime. rOPINIRole (REQUIP) 2 MG tablet Take 1 Tablet (2 mg) by mouth two times a day. tamsulosin 0.4 MG CAPS capsule Take 1 Capsule (0.4 mg) by mouth daily. testosterone cypionate (DEPO-TESTOSTERONE) 200 MG/ML injection Inject 1 mL (200 mg) intramuscularlyevery 14 days. thiamine 100 MG tablet Take 1 Tablet (100 mg) by mouth daily. traZODone (DESYREL) 100 MG tablet Take 4 Tablets (400 mg) by mouth daily at bedtime. valACYclovir (VALTREX) 1 g tablet Take 1 Tablet (1,000 mg) by mouth daily. Allergies: Patient has no known allergies. Review of Systems Pertinent items are noted in HPI. Objective: BP 114/83 Pulse 91 Temp 97.9 ??F (36.6 ??C) (Oral) Resp 15 SpO2 99% Weight: 12/14/18 : 105.7 kg (233 lb) Oxygen Therapy Device (Oxygen Therapy): room air General: Not in acute distress, lying in bed. Sleepy but awakes to voice and touch. Normal speech speed. HEENT: Non icteric sclera, dry appearing oral mucosa CV: Regular rate and rhythm, no murmurs appreciated Pulm: CTAB, No wheezes or crackles heard GI: Soft, nondistended, nontender, normoactive bowel sound. Skin: No skin on exposed rashes Lower extremity: No lower extremity edema MSK: Normal range of motion on bilateral hips. No point tenderness noted on bilateral hip joints orthighs. Neuro: Alert and oriented x 3. Psych: no SI/HI. Denies hallucination. Results reviewed in Epic and pertinent results are as follows: Labs: Last A1C: No results for input(s): HGBA1C, SAFU0FOGE in the last 24 hours. Last BMP: Recent Labs 05/07/23 04205/07/23 0622 CREATININE 2.29* 2.46* GLUCOSE 95 -- BICARB 26 -- CHLORIDE 102 -- K 3.3* -- SODIUM 141 -- BUN 24 -- CA 9.4 -- GFR 32* 30* Last CBC: Recent Labs 05/07/23 042 WBC 9.4 RBC 5.96* HGB 17.6* HCT 53.4* MCV 89.6 RDW 13.6 PLTS 175 Last INR: Recent Labs 05/07/23 0420 INR 1.1 PROTIME 14.0 Last Lactate: Recent Labs 05/07/23 0614 WBLACT 0.83 Imaging: CT PE IMPRESSION: 1. No convincing pulmonary embolus identified, within limitations of motion artifact and suboptimalopacification of the pulmonary arterial system. No pneumonia. 2. Dilated main pulmonary artery measuring 4.4 cm, unchanged, indeterminate but may indicate underlying pulmonary hypertension. 3. Stable 2 to 3 mm bilateral pulmonary nodules. Per Fleischner Society 2017 guideline, a one-year follow-up chest CT could be considered if patient is at high risk for lung cancer. Without lung cancer risk factor, no follow-up is necess ECG: Sinus rhythm Minimal voltage criteria for LVH, may be normal variant ST & T wave abnormality, consider lateral ischemia Abnormal ECG When compared with ECG of 07-MAY-2023 05:01, Nonspecific T wave abnormality has replaced inverted T waves in Inferior leads QT has shortened ASSESSMENT/PLAN: Nicanor Alvarado is a 57 y.o. male who was admitted for evaluation of a elevated troponin, possibly in due to Type 2 CO in the setting of severe hypotension and USAMA. Patient is also being evaluated for bipolar disorder (concern for kennedi), polysubstance abuse and possible stimulant/alcohol withdraw al. #Elevated troponin #R/O Demand ischemia (Type 2 CO) Patient is a poor historian but reports intermittent chest pain. Troponin elevated on admission 0.13 and continues to be elevated on serial checks (0.2>0.6>0.88). EKG shows nonspecific ST changes in V1,V2, T wave inversions in lateral leads. No recent prior EKGs available. No known prior history of CAD; no significant arterial calcification seen on CTPE. Differentials for elevated troponin includes demand ischemia in the setting of hypotension, recent methamphetamine/other substance use, and ACS. Per cardiology, elevated troponin appears likely secondary to demand ischemia (type 2 CO) in the setting of significant hypotension. Given minimal symptoms, normal LVEF on echo, USAMA, and concern for polysubstance abuse/recent fall history (risk for bleeding on DAPT), cardiology recommends medical management at this time. -Cardiology consult, appreciate recommendation -s/p asprin 325mg in the ED -s/pheparin infusion -Trend troponin to peak -Metoprolol succinate 12.5mg . Can uptitrate to 25mg daily -Continue aspirin 81mg -Increase atorvastatin 40mg -TTE : normal LVEF w/o significant valvular abnormalities -EKG if new chest pain -Outpatient cardiology follow-up in 4-6 weeks for further management # Concern for syncopal episode # Hypotension, resolved # Potential orthostatic hypotension vs. Vasovagal syncope Patient had a possible syncopal episode on arrival to ED. Did not lose consciousness but felt dizzyand fell down on the group after making a sudden positional change to stand up. Patient unable to give clear history to the group underwriter on symptoms prior to his syncope. No signs of post-ictal confusion. Most suspicious for syncopal episode in the setting of severe hypotension on ED arrival (BP 69/39)due to severe dehydration (reports not eating for several days). Patient's BP was fluid responsive (improved after 2L of IVF). Orthostatic/vasovagal syncope is also possible. Repeat TTE did not show s ignificant valvular or other structural abnormalities that could support syncopal episode. -TTE as above -Orthostatic vitals -Can consider additional fluid based on fluid assessment on TTE #USAMA, possible pre-renal and intrinsic Patient presented with elevated creatinine. Unclear if there is chronic component to elevated creatinine given lack of recent records. Patient reports that he was recently admitted at outside hospital and was told that his kidney was failing. Potential etiologies for acute kidney injury include poor oral intake (denies eating for several days), severe hypotension, chronic diclofenac use. With contrast exposure in the ED, patient's creatinine may worsen in the next few days. -BMP daily -UA for casts, FeNa #Bipolar disorder, Concern for kennedi #Concern for substance use disorder including benzo, methamphetamine #History of alcohol withdrawal Patient with history of bipolar disorder but no clear records of recent treatment. He reports not eating and drinking for several days prior to coming to the hospital. Does not have pressured speech but does sound disorganized. Also reports methamphetamine use prior to coming to the hospital along with alprazolam and diclofenac (for chronic pain). No SI/HI, no hallucination or signs of psychosis seen on group underwriter's exam. -Psychiatry consult (for assessment of bipolar, capacity assessment) Hold FLOOR SUPERVISOR Seroquel 400 mg BID -Hold FLOOR SUPERVISOR Lexapro 20mg daily -Hold FLOOR SUPERVISOR Trazodone 200mg BID -Hold FLOOR SUPERVISOR Prazosin 2mg qHS -Patient is holdable due to concerns for safety surrounding substance use, possible kennedi. -Addiction medicine consult -[facility] protocol -High dose thiamine, folate #Chronic Lt. Hip/back pain Reports chronic Lt. Hip/back pain and has been a chronic user of diclofenac. Patient request diclofenac specifically for pain despite his poor kidney function is explained. -Pain management consult -Hold FLOOR SUPERVISOR diclofenac -Continue gabapentin 600mg TID. Can increase to 900mg TID (per psych) Chronic issues #HTN Hold lisinopril #BPH -Hold tamsulosin in the setting of hypotension #GERD -Continue pantoprazole 40mg daily Social Determinants of Health adding to complexity of care: Alcohol/substance abuse Consults/Care Discussions: Cardiology Addiction medicine Pain medicine Psychiatry Notes Reviewed: ED clinician Diet: Regular diet IVF: None DVT Prophylaxis: Low risk Code Status: Full Code Code Status Information Source: Discussed with patient/family Med Rec Status: Fully completed by me personally at bedside I anticipate that the patient's hospitalization will span at least the next two midnights, and theyshould be admitted as an inpatient because of a higher risk of an adverse outcome due to potential acute coronary syndrome. I estimate the length of stay to be 2 nights. Patient was staffed with Dr. Didier Braswell MD MPH Internal Medicine PGY-1 GEMENT INFORMATION SYSTEMS DIRECTOR Associated attestation - Zaki Velásquez MD - 05/08/2023 7:46 AM MANAGEMENT INFORMATION SYSTEMS DIRECTOR Date of Service: 05/07/2023 I saw and examined the patient. I discussed the plan of care with Dr. Braswell. All labs reviewed by me.I agree with the findings and plan of care as documented in the note above by Dr Braswell. Nicanor Alvarado is a 57 y.o. M w/ hx of EtOH abuse, meth abuse, daily Xanax use, bipolar disorder, anxiety, HTN, HLD, low back pain who was admitted for syncope (brought in by police after arrestedfor erratic driving). - Syncope: cardiac etiology vs orthostasis vs intoxication vs psychiatric- related. Less likely seizure. Fluid resuscitating, keeping on telemetry, and obtaining orthostatics. - Intermittent chest pain, elevated troponin, ST [...] of demand ischemia. Metoprolol started, atorvastatin increased. Will trend troponin to peak. Heparin gtt now off; and plan to do daily baby aspirin. TTE ordered. - USAMA vs CKD: Cr 2.3. Unknown recent baseline. Our last Cr on file is 0.9. Notably pt says he has had 2 admissions over the last month or so (once in [place], once in [place], [place]) and was told my kidneys are shot. Need to attempt to get medical records from these hospital systems. Notablyhe uses PO diclofenac daily despite being told by many doctors not do to this out of concern for his kidneys. He says he buys it online now. UA, FeNa, post void residual bladder volumes. - Bipolar d/o, likely substance abuse-induced mood d/o, hx of SI with Psych admission at [facility] [id number]: fidgety, often mentioning he will leave against medical advice, at times agitated. Psych consulted; they have deemed him holdable if he tries to leave the hospital. Holding FLOOR SUPERVISOR lexapro, Seroquel, trazodone, prazosin; c/t gabapentin - Meth use d/o, EtOH use d/o [...] He declined full assessment from Addiction Medicine. CIWA protocol. High-intensity thiamine + folate. PETH ordered. - Chronic pain syndrome; hx posterior fusion L4-S1 and C4-C6: reports chronic low back, B/L hip, and shoulder pain. Frustrated that doctors will not prescribe him opioids, and that they recommend against diclofenac. Pain consulted, but he was not interested in any options other than opioids. - Hypokalemia: replacing aggressively. EKG: Reviewed by me. Normal rate, normal sinus rhythm. Some non-specific abnormality in ST segment in leads V1-V2 and new ST segment depressions in inferior leads. Also has T-wave inversions in lateral leads. Billing based on: Complexity; high Leoncio Velásquez MD 05/07/2023 documented in this encounter ED Notes * Darleen Bearden RN - 05/08/2023 6:04 PM CST Accessed patient chart due to patient calling about a referral and prescription he was given at discharge. Patient transferred to [facility] as that is floor he was discharged from. * Dane Calloway RN - 05/07/2023 6:13 AM CST Patient has remained on 4-6 LPM O2 via NC since shortly after arrival . Patient was transferred from the hallway to [facility] for more appropriate monitoring could be achieved. Patient has become increasingly lethargic and saturations and ETCo2 have been concerning. GEMENT INFORMATION SYSTEMS DIRECTOR * Aaron Patterson MD - 05/07/2023 4:31 AM CST [facility] Emergency Medicine Visit Note Chief Complaint: DIZZINESS (Legal blood draw) HPI 57 y.o. male with alcohol use disorder, bipolar disorder (on bupropion, olanzapine, quetiapine), chronic low back pain, hypertension who presents for evaluation of syncope. Patient initially presented by [facility] for legal blood draw. As he was getting out of the [employer] car, patient reports that he stood up quickly, felt dizzy, and then had syncopal event. The officer lowered him to the ground, did not hit his head, no loss of consciousness. Patient reported taking some alprazolam and diclofenac at home to help with sleep, then he reports his son was arrested for DUI and patient went to go pick him up. He reports no alcohol use today, but does use regularly. No recreational drug use. No chest pain shortness for breath. He was really only reporting dry mouth. No fevers, vomiting, abdominal pain. No acute lower extremity pain or edema.No history of VTE. Triage Vitals [05/07/23 0345] Temp 97.9 ??F (36.6 ??C) Temp src Oral Pulse 96 Resp 16 BP (!) 69/39 SpO2 (!) 91 % Physical Exam Constitutional: laying in hospital bed, tired appearing, oriented, in no apparent distress HEENT: normocephalic, atraumatic, pupils 2mm, equal, round, and reactive to light, sclerae anicteric Neck: no stridor Cardiovascular: regular rate and rhythm, no murmurs, rubs, or extra heart sounds Pulmonary: breathing comfortably on room air, lungs clear to auscultation bilaterally Abdominal: soft, non-tender, non-distended Extremities: no peripheral edema Skin: warm, dry Neurologic: moves all four extremities spontaneously Psychiatric: calm, appropriate MDM: Patient was a 57-year-old male with above history presenting for evaluation of syncopal event.Persistently hypotensive on arrival even for 30-45 minutes after the syncopal event while laying down in the bed. Mentating well throughout this, not tachycardic. Also mildly hypotensive. Notably afebrile. Based on history, etiology of syncope most likely orthostatic. However, he remains quite hypotensive for reasons that are not quite clear. Overall low concern for infectious process, no localizing signs or symptoms concerning for infection, and he is afebrile. Planning for labs, EKG, fluids. I do not think imaging or antibiotics or emergently indicated. Disposition pending above workup and ambulation trial without symptoms. Remainder of ED course below. Aaron Patterson MD ED Course as of 05/07/23 1039 WedMay 07, 2023 044 BP: 98/78 Pressure improved after less than 500 cc of the crystalloid bolus [TED] 0450 ATTENDING: I personally saw the patient, performed crawford elements of the visit, and supervised patient care with the apprentice plumber. MDM: brought for legal blood draw. Had syncopal episode on way into ED. BP low (69/39). Took xanax FLOOR SUPERVISOR but had to drive to pickling tank operator son who was arrested for DUI.Denies ETOH use. IVF administered with increase in bp. R/o serious etiology. EKG / labs pending. Dispo per work up. [KG] 0456 Complete Blood Count -no Diff(!) Quite hemoconcentrated (hemoglobin 17.6) consistent with prominent hypovolemia. No leukocytosis which, given he was afebrile and without localizing signs or symptoms, still low concern for infection.Platelets normal. [TED] 0501 Alcohol,Ethyl: <0.01 Not intoxicated [TED] 0501 Basic Metabolic Panel(!) USAMA, baseline creatinine at least 4 years ago was around 1.0. Mild hypokalemia, no other significant electrolyte abnormality. Will replace orally. USAMA consistent with significant hypovolemia. [TED] 0510 ECG 12-Lead STAT (EKG) ECG: - Ventricular rate 89bpm, regular - HI, QRS intervals normal, QT long - Boissevain normal - diffuse T-wave inversions, ST elevation in V2, subtle elevation in V1 - external review of prior ECGs: New changes as above - my independent interpretation: Normal sinus rhythm with global ischemic pattern, no other clear explanation for syncope including no Brugada pattern, delta waves, or convincing epsilon waves [TED] 0512 Troponin I(!): 0.13 In setting of ECG with new ischemic changes, this is concerning for ongoing myocardial injury. Patient was not having any ischemic symptoms including no chest pain or shortness for breath. No findings indicating emergent laborer mine activation for right now. We will give aspirin now. Adding cardiac ultrasound. [TED] 0558 I certify that I performed or supervised the ultrasound(s), reviewed the image(s), and agree with the resident's findings. [KG] 0525 Patient now with desaturation into the mid 80s, requiring 6 L nasal cannula to maintain oxygenlevels greater than 90. I reassessed patient, he appears clinically decompensated from when he 1st arrived. Appears plethoric in his upper chest and neck. More tired than previously, unclear contribution of alprazolam. He still awakens to voice and answers questions appropriately. Bedside cardiac ultrasound with perhaps mildly reduced systolic function, no pericardial effusion. Parasternal short view is concerning for septal flattening. In this clinical context certainly some concern for pulmonary embolism. Working on large-bore IV access for PE study (initially had very diff icult IV access likely due to hypovolemia). Lungs are without B-lines, we will continue volume resuscitation. [TED] 0601 CT Angio Chest W IV Cont PE Study IMPRESSION: 1. No convincing pulmonary embolus identified, within limitations of motion artifact and suboptimalopacification of the pulmonary arterial system. No pneumonia. 2. Dilated main pulmonary artery measuring 4.4 cm, unchanged, indeterminate but may indicate underlying pulmonary hypertension. 3. Stable 2 to 3 mm bilateral pulmonary nodules. Per Fleischner Society 2017 guideline, a one-year follow-up chest CT could be considered if patient is at high risk for lung cancer. Without lung cancer risk factor, no follow-up is necessary. [TED] 0616 Lactate, Whole Blood: 0.83 Somewhat reassuring against significant cardiogenic or septic shock picture [TED] 0708 Sign out received, assumed care of patient at this time. 57 y M w alcohol use disorder, bipolar, had a syncopal episode w/ polic after being pulled over [place] Xanax. Persistently hypotensive on arrival, then resolved. Trop and BMP elevated. Now hypoxic respiratory failure on 6 L NC. Will start on heparin drip. [JL] 0800 Patient admitted to the medicine service [JL] 1038 Patient requesting his diclofenac, otherwise he feels like he would like to leave, I updated the medicine team. [JL] ED Course User Index [JL] Yosvany Braswell MD [TED] Aaron Patterson MD [KG] Shanta Kaur MD Clinical Impressions as of 05/07/23 1039 Syncope and collapse USAMA (acute kidney injury) ([facility]) Hypokalemia Acute electrocardiogram changes Elevated troponin Acute respiratory failure with hypoxia ([facility]) GEMENT INFORMATION SYSTEMS DIRECTOR * Maye Meyer RN - 05/07/2023 4:14 AM CST [facility] Emergency Department Legal Blood Alcohol A legal blood alcohol was obtained by on 05/07/2023 at 0414 at the direction of law enforcement. The patient , Nicanor Alvarado, ACCEPTED a Medical Screening Exam. Kit # [id number] was opened by the Officer. The blood was obtained from the Right , Saphenous vein site after the area was prepped using a non-alcohol swab from the sealed blood alcohol kit. A sterile needle was used. The blood was drawn in two sims-top tubes from the blood alcohol kit, both contained white powder. The tubes were labeled by the Officer and placed back into the legal blood alcohol kit which was immediately sealed and given to Director Business Management joaquín Leal number [phone] . GEMENT INFORMATION SYSTEMS DIRECTOR documented in this encounter Plan of Treatment Not on file documented as of this encounter Procedures Procedure Name Priority Date/Time Associated Diagnosis Comments LIVER PANEL(HEPATIC FUNCTION PANEL) Routine 05/08/2023 8:37 AM MANAGEMENT INFORMATION SYSTEMS DIRECTOR BASIC METABOLIC PANEL Routine 05/08/2023 8:37 AM MANAGEMENT INFORMATION SYSTEMS DIRECTOR COMPLETE BLOOD COUNT-NO DIFF Routine 05/08/2023 8:37 AM MANAGEMENT INFORMATION SYSTEMS DIRECTOR CK, TOTAL Add-On 05/08/2023 8:37 AM MANAGEMENT INFORMATION SYSTEMS DIRECTOR INPATIENT TELEMETRY MONITORING Routine 05/08/2023 7:18 AM MANAGEMENT INFORMATION SYSTEMS DIRECTOR INPATIENT TELEMETRY MONITORING Routine 05/07/2023 11:31 PM MANAGEMENT INFORMATION SYSTEMS DIRECTOR INPATIENT TELEMETRY MONITORING Routine 05/07/2023 11:31 PM MANAGEMENT INFORMATION SYSTEMS DIRECTOR TROPONIN I STAT 05/07/2023 9:09 PM MANAGEMENT INFORMATION SYSTEMS DIRECTOR CK, TOTAL Add-On 05/07/2023 9:09 PM MANAGEMENT INFORMATION SYSTEMS DIRECTOR US RENAL W BLADDER Routine 05/07/2023 8: 19 PM MANAGEMENT INFORMATION SYSTEMS DIRECTOR INPATIENT TELEMETRY MONITORING Routine 05/07/2023 4:25 PM MANAGEMENT INFORMATION SYSTEMS DIRECTOR TROPONIN I Specified Time 05/07/2023 4:06 PM MANAGEMENT INFORMATION SYSTEMS DIRECTOR RAPID FENTANYL, URINE (WITH CONFIRMATION) Routine 05/07/2023 2:52 PM MANAGEMENT INFORMATION SYSTEMS DIRECTOR URINE DRUG COMPREHENSIVE PANEL (WITH CONFIRMATION) Routine 05/07/2023 2:52 PM MANAGEMENT INFORMATION SYSTEMS DIRECTOR RAPID DRUG PANEL, URINE (WITH CONFIRMATION) Routine 05/07/2023 2:52 PM MANAGEMENT INFORMATION SYSTEMS DIRECTOR UA CONDITIONAL UC STAT 05/07/2023 2:5 2 PM MANAGEMENT INFORMATION SYSTEMS DIRECTOR SODIUM, URINE RANDOM Routine 05/07/2023 2:52 PM MANAGEMENT INFORMATION SYSTEMS DIRECTOR CREATININE,UR RANDOM Routine 05/07/2023 2:52 PM MANAGEMENT INFORMATION SYSTEMS DIRECTOR XA UNFRACTIONATED HEPARIN Specified Time 2023 2:11 PM MANAGEMENT INFORMATION SYSTEMS DIRECTOR ANTI-XA (HEPARIN AND LMWH LEVEL)/FONDAPARINUX ASSAY Specified Time 05/07/2023 2:11 PM MANAGEMENT INFORMATION SYSTEMS DIRECTOR PHOSPHATIDYLETHANOL (PETH), QUANTITATIVE Routine 05/07/2023 2:11 PM MANAGEMENT INFORMATION SYSTEMS DIRECTOR EJECTION FRACTION Routine 05/07/2023 1:1 5 PM MANAGEMENT INFORMATION SYSTEMS DIRECTOR CARDIAC ROUTINE ECHOCARDIOGRAM Routine 05/07/2023 1:15 PM MANAGEMENT INFORMATION SYSTEMS DIRECTOR LIPID PANEL & DIRECT LDL (IF NEEDED) Add-On 05/07/2023 12:06 PM MANAGEMENT INFORMATION SYSTEMS DIRECTOR TROPONIN I STAT 05/07/2023 12:06 PM MANAGEMENT INFORMATION SYSTEMS DIRECTOR TROPONIN I Specified Time 05/07/2023 9:36 AM MANAGEMENT INFORMATION SYSTEMS DIRECTOR RSV, MOLECULAR DETECTION STAT 024 9:35 AM MANAGEMENT INFORMATION SYSTEMS DIRECTOR INFLUENZA VIRUS A AND B, MOLECULAR DETECTION STAT 05/07/2023 9:35 AM MANAGEMENT INFORMATION SYSTEMS DIRECTOR 2019 NOVEL CORONAVIRUS STAT 9:35 AM MANAGEMENT INFORMATION SYSTEMS DIRECTOR COVID/INFLUENZA A&B/RSV STAT 05/07/19 24 9:35 AM MANAGEMENT INFORMATION SYSTEMS DIRECTOR BLOOD GAS, VENOUS STAT 05/07/2023 7:3 7 AM MANAGEMENT INFORMATION SYSTEMS DIRECTOR 83162 ELECTROCARDIOGRAM TRACING STAT 05/07/2023 6:30 AM MANAGEMENT INFORMATION SYSTEMS DIRECTOR CREATININE / GFR STAT Add-On 05/07/2023 6:22 AM MANAGEMENT INFORMATION SYSTEMS DIRECTOR TROPONIN I Specified Time 05/07/2023 6:22 AM MANAGEMENT INFORMATION SYSTEMS DIRECTOR 11066 LACTATE, WHOLE BLOOD Routine 05/07/2023 6:14 AM MANAGEMENT INFORMATION SYSTEMS DIRECTOR CT ANGIO CHEST W IV CONT PE STUDY STAT 05/07/2023 5:47 AM MANAGEMENT INFORMATION SYSTEMS DIRECTOR POC US BASIC CARDIAC Routine 05/07/2023 5:13 AM MANAGEMENT INFORMATION SYSTEMS DIRECTOR 37172 ELECTROCARDIOGRAM TRACING STAT 05/07/2023 5:01 AM MANAGEMENT INFORMATION SYSTEMS DIRECTOR EXTRA BLUE TOP TUBE Routine 05/07/2023 4 :20 AM MANAGEMENT INFORMATION SYSTEMS DIRECTOR BRAIN NATRIURETIC PEPTIDE (BNP) STAT Add-On 05/07/2023 4:20 AM MANAGEMENT INFORMATION SYSTEMS DIRECTOR LIVER PANEL(HEPATIC FUNCTION PANEL) STAT Add-On 05/07/2023 4:20 AM MANAGEMENT INFORMATION SYSTEMS DIRECTOR D DIMER, QUANTITATIVE STAT Add-On 05/07/2023 4:20 AM MANAGEMENT INFORMATION SYSTEMS DIRECTOR BASIC METABOLIC PANEL STAT 05/07/2023 4:20 AM MANAGEMENT INFORMATION SYSTEMS DIRECTOR APTT (ACTIVATED PARTIAL THROMBOPLASTIN TIME STAT Add-On 05/07/2023 4:20 AM MANAGEMENT INFORMATION SYSTEMS DIRECTOR TROPONIN I Specified Time 05/07/2023 4:20 AM MANAGEMENT INFORMATION SYSTEMS DIRECTOR COMPLETE BLOOD COUNT-NO DIFF STAT 05/07/2023 4:20 AM MANAGEMENT INFORMATION SYSTEMS DIRECTOR MAGNESIUM STAT 05/07/2023 4:20 AM MANAGEMENT INFORMATION SYSTEMS DIRECTOR ALCOHOL,ETHYL STAT 05/07/2023 4:20 AM MANAGEMENT INFORMATION SYSTEMS DIRECTOR INR/PROTIME STAT Add-On 05/07/2023 4:20 AM MANAGEMENT INFORMATION SYSTEMS DIRECTOR documented in this encounter Results * CK, Total (05/08/2023 8:37 AM MANAGEMENT INFORMATION SYSTEMS DIRECTOR) Pathologist [facility] [place] CK, Total 181 30 - 200 U/L 05/08/2023 11:46 AM MANAGEMENT INFORMATION SYSTEMS DIRECTOR [facility] Blood Venipuncture / Unknown 05/08/2023 8:37 AM MANAGEMENT INFORMATION SYSTEMS DIRECTOR 05/08/2023 9:21 AM MANAGEMENT INFORMATION SYSTEMS DIRECTOR Zaki Velásquez MD LAB_[address] [address], [facility] * (ABNORMAL) Liver Panel(Hepatic Function Panel) (05/08/2023 8:37 AM MANAGEMENT INFORMATION SYSTEMS DIRECTOR) Alkaline Phosphatase 64 40 - 150 U/L 05/08/2023 9:55 AM MANAGEMENT INFORMATION SYSTEMS DIRECTOR [facility] Bilirubin, Total 0.8 0.2 - 1.2 mg/dL 05/08/2023 9:55 AM [facility] Bilirubin, Direct 0.4 0.0 - 0.5 mg/dL 05/08/2023 9:55 AM [facility] AST (SGOT) 37 10 - 40 U/L 05/08/2023 9:55 AM [facility] ALT (SGPT) 28 <=55 U/L 05/08/2023 9:55 AM [facility] Protein, Total 6.5 6.4 - 8.3 g/dL 05/08/2023 9:55 AM [facility] Albumin 3.3(L) 3.5 - 5.0 g/dL 05/08/2023 9:55 AM [facility] Blood Venipuncture / Unknown 05/08/2023 8:37 AM MANAGEMENT INFORMATION SYSTEMS DIRECTOR 05/08/2023 9:21 AM MANAGEMENT INFORMATION SYSTEMS DIRECTOR Zaki Velásquez MD LAB_1 Performing Organization Address [facility] Co de Phone Number [address] * (ABNORMAL) Basic Metabolic Panel (05/08/2023 8:37 AM MANAGEMENT INFORMATION SYSTEMS DIRECTOR) Sodium 138 136 - 145 mmol/L 05/08/2023 9:55 AM [facility] Potassium 3.9 3.5 - 5.1 mmol/L 05/08/2023 9:55 AM [facility] Chloride 103 98 - 109 mmol/L 05/08/2023 9:55 AM [facility] CO2 26 20 - 29 mmol/L 05/08/2023 9:55 AM [facility] Anion Gap 9 7 - 16 mmol/L 05/08/2023 9:55 AM [facility] Calcium 9.1 8.4 - 10.4 mg/dL 05/08/2023 9:55 AM [facility] BUN 22 7 - 26 mg/dL 05/08/2023 9:55 AM [facility] Creatinine 1.41(H) 0.73 - 1.18 mg/dL 05/08/2023 9:55 AM [facility] Glucose 130(H) 70 - 100 mg/dL 05/08/2023 9:55 AM [facility] Comment:The given reference range is for the fasting state. Non-fasting reference range for glucose is 70 - 180 mg/dL. GFR, Estimated 58(L) >60 mL/min/1.7 3m2 05/08/2023 9:55 AM [facility] Comment:>60 Blood Venipuncture / Unknown 05/08/2023 8:37 AM MANAGEMENT INFORMATION SYSTEMS DIRECTOR 05/08/2023 9:21 AM MANAGEMENT INFORMATION SYSTEMS DIRECTOR Trish Patel MD LAB_1 Performing Organization Address [facility] Co de Phone Number [address] * (ABNORMAL) Complete Blood Count-No Diff (05/08/2023 8:37 AM MANAGEMENT INFORMATION SYSTEMS DIRECTOR) WBC 6.7 3.5 - 10.5 x10(9)/L 05/08/2023 9:29 AM [facility] RBC 5.82(H) 4.32 - 5.72 x10(12)/L 05/08/2023 9:29 AM [facility] Hemoglobin 17.5 13.5 - 17.5 g/dL 05/08/2023 9:29 AM [facility] HCT 53.1(H) 38.8 - 50.0 % 05/08/2023 9:29 AM [facility] MCV 91.2 80.0 - 100.0 fL 05/08/2023 9:29 AM [facility] MCH 30.1 27.6 - 33.3 pg 05/08/2023 9:29 AM [facility] MCHC 33.0 31.5 - 35.2 g/dL 05/08/2023 9:29 AM [facility] RDW 13.6 11.9 - 15.5 % 05/08/2023 9:29 AM [facility] Platelets 159 150 - 450 x10(9)/L 05/08/2023 9:29 AM [facility] Automated NRBC 0 <=0 /100 WBC 05/08/2023 9:29 AM [facility] Blood Venipuncture / Unknown 05/08/2023 8:37 AM MANAGEMENT INFORMATION SYSTEMS DIRECTOR 05/08/2023 9:21 AM MANAGEMENT INFORMATION SYSTEMS DIRECTOR Trish Patel MD LAB_1 Performing Organization Address [facility] [place] [address], [facility] * INPATIENT TELEMETRY MONITORING (05/08/2023 7:18 AM MANAGEMENT INFORMATION SYSTEMS DIRECTOR) TELE P-R INTERVAL 0.20 [facility] TELE QRS DURATION 0.07 [facility] TELE R-R INTERVAL 0.81 [facility] TELE INTERPRETATION Sinus Rhythm HR 75 Marimar MUSE [facility] 05/08/2023 7:18 AM MANAGEMENT INFORMATION SYSTEMS DIRECTOR Narrative [facility] - 05/08/2023 7:58 AM MANAGEMENT INFORMATION SYSTEMS DIRECTOR Sinus Rhythm ??HR 75 Marimar Interface Provider EKG Performing Organization Address [facility] de Phone Number [facility] [address] [place] [address] * INPATIENT TELEMETRY MONITORING (05/07/2023 11:31 PM MANAGEMENT INFORMATION SYSTEMS DIRECTOR) TELE P-R INTERVAL 0.16 MUSE [facility] TELE QRS DURATION 0.06 [facility] TELE R-R INTERVAL 0.75 [facility] TELE INTERPRETATION Sinus Rhythm Hr 82 Sydni Muoñz RN MUSE [facility] 05/07/2023 11:3 1 PM MANAGEMENT INFORMATION SYSTEMS DIRECTOR Narrative [facility] - 05/08/2023 12:20 AM MANAGEMENT INFORMATION SYSTEMS DIRECTOR Sinus Rhythm ??Hr 82 Sydni Muñoz RN Interface Provider EKG Performing Organization Address [facility] de Phone Number [facility] [address] [place] [address] * INPATIENT TELEMETRY MONITORING (05/07/2023 11:31 PM MANAGEMENT INFORMATION SYSTEMS DIRECTOR) TELE P-R INTERVAL 0.16 [facility] TELE QRS DURATION 0.06 [facility] TELE R-R INTERVAL 0.75 [facility]USE [facility] TELE INTERPRETATION Sinus Rhythm Hr 82 Sydni Muñoz RN MUSE [facility] 05/07/2023 11:3 1 PM MANAGEMENT INFORMATION SYSTEMS DIRECTOR Narrative [facility] - 05/08/2023 12:19 AM MANAGEMENT INFORMATION SYSTEMS DIRECTOR Sinus Rhythm ??Hr 82 Sydni Muñoz RN Interface Provider EKG Performing Organization Address [facility] Co de Phone Number [facility] [address] [place] [address] * (ABNORMAL) CK, Total (05/07/2023 9:09 PM MANAGEMENT INFORMATION SYSTEMS DIRECTOR) CK, Total 309(H) 30 - 200 U/L 05/08/2023 11:27 AM MANAGEMENT INFORMATION SYSTEMS DIRECTOR [facility] Blood Venipuncture / Unknown 05/07/2023 9:09 PM MANAGEMENT INFORMATION SYSTEMS DIRECTOR 05/07/2023 9:22 PM MANAGEMENT INFORMATION SYSTEMS DIRECTOR Zaki Velásquez MD LAB_1 Performing Organization Address [facility] Co de Phone Number [address] * (ABNORMAL) Troponin I (05/07/2023 9:09 PM MANAGEMENT INFORMATION SYSTEMS DIRECTOR) Troponin I 0.76(H) 0.00 - 0.03 ng/mL 05/07/2023 9:51 PM MANAGEMENT INFORMATION SYSTEMS DIRECTOR [facility] Blood Venipuncture / Unknown 05/07/2023 9:09 PM MANAGEMENT INFORMATION SYSTEMS DIRECTOR 05/07/2023 9:22 PM MANAGEMENT INFORMATION SYSTEMS DIRECTOR Zaki Velásquez MD LAB_1 Performing Organization Address [facility] Co de Phone Number [address] * US Renal W Bladder (05/07/2023 8:19 PM MANAGEMENT INFORMATION SYSTEMS DIRECTOR) Anatomical Region Laterality Modality Abdomen, Pelvis Ultrasound 05/07/2023 8:19 PM MANAGEMENT INFORMATION SYSTEMS DIRECTOR Narrative 05/07/2023 8:22 PM MANAGEMENT INFORMATION SYSTEMS DIRECTOR EXAM: US RENAL W BLADDER LOCATION: [facility] DATE: 05/07/2023 INDICATION: USAMA COMPARISON: None. TECHNIQUE: Routine Bilateral Renal and Bladder Ultrasound. FINDINGS: RIGHT KIDNEY: 13.4 cm. Normal without hydronephrosis or masses. LEFT KIDNEY: 15.1 cm. No hydronephrosis. Benign-appearing 2.2 cm cyst at the midpole. No follow-up needed. BLADDER: Normal. IMPRESSION: 1. ??No hydronephrosis. Procedure Note Ángel Zmaora MD - 05/07/2023 EXAM: US RENAL W BLADDER LOCATION: [facility] DATE: 05/07/2023 INDICATION: USAMA COMPARISON: None. TECHNIQUE: Routine Bilateral Renal and Bladder Ultrasound. FINDINGS: RIGHT KIDNEY: 13.4 cm. Normal without hydronephrosis or masses. LEFT KIDNEY: 15.1 cm. No hydronephrosis. Benign-appearing 2.2 cm cyst atthe midpole. No follow-up needed. BLADDER: Normal. IMPRESSION: 1. No hydronephrosis. Zaki Velásquez MD RAD US * INPATIENT TELEMETRY MONITORING (05/07/2023 4:25 PM MANAGEMENT INFORMATION SYSTEMS DIRECTOR) [facility] TELE P-R INTERVAL 0.16 MUSE [facility] TELE QRS DURATION 0.08 [facility] TELE R-R INTERVAL 0.68 [facility]USE [facility] TELE INTERPRETATION Sinus Rhythm Albertine. O RN MUSE [facility] 05/07/2023 4:25 PM MANAGEMENT INFORMATION SYSTEMS DIRECTOR Narrative MUSE P - 05/07/2023 4:30 PM MANAGEMENT INFORMATION SYSTEMS DIRECTOR Sinus Rhythm ??Montanatine.O RN Interface Provider EKG Performing Organization Address City/[facility]/ZIP Co de Phone Number [facility] [address] [place] [address] * (ABNORMAL) Troponin I (05/07/2023 4:06 PM MANAGEMENT INFORMATION SYSTEMS DIRECTOR) [facility] Troponin I 1.02(H) 0.00 - 0.03 ng/mL 05/07/2023 4:52 PM MANAGEMENT INFORMATION SYSTEMS DIRECTOR [facility] Blood Venipuncture / Unknown 05/07/2023 4:06 PM MANAGEMENT INFORMATION SYSTEMS DIRECTOR 05/07/2023 4:10 PM MANAGEMENT INFORMATION SYSTEMS DIRECTOR Zaki Velásquez MD LAB_1 Performing Organization Address City/[facility]/ZIP Co de Phone Number [facility] [address] [place] [address], [facility] * (ABNORMAL) Urine Drug Comprehensive Panel (with Confirmation) (05/07/2023 2:52 PM MANAGEMENT INFORMATION SYSTEMS DIRECTOR) [facility] [id number]-[id number] am, urine Confirmed Positive(A) Not Detected 05/11/2023 12:19 PM MANAGEMENT INFORMATION SYSTEMS DIRECTOR [facility] Alprazolam, urine Confirmed Positive(A) Not Detected 05/11/2023 12:19 PM [facility] Amitryptyline, urine Not Detected Not Detected 05/11/2023 12:19 PM [facility] Amphetamine, urine Confirmed Positive(A) Not Detected 05/11/2023 12:19 PM [facility] Benzoylecgonine, urine Not Detected Not Detected 05/11/2023 12:19 PM [facility] Buprenorphine, urine Not Detected Not Detected 05/11/2023 12:19 PM [facility] Bupropion, urine Not Detected Not Detected 07/2023 12:19 PM [facility] Butalbital, urine Not Detected Not Detected 07/2023 12:19 PM [facility] Carisoprodol, urine Not Detected Not Detected 05/11/2023 12:19 PM [facility] Citalopram, urine Confirmed Positive(A) Not Detected 05/11/2023 12:19 PM [facility] Clomipromine, urine Not Detected Not Detected 05/11/2023 12:19 PM [facility] Clonazepam Metab 7-Aminoclonazepam , urine Not Detected Not Detected 05/11/2023 12:19 PM [facility] Clonazepam, urine Not Detected Not Detected 07/2023 12:19 PM [facility] Cocaine, urine Not Detected Not Detected 2023 12:19 PM [facility] Codeine, urine Not Detected Not Detected 2023 12:19 PM [facility] Cyclobenzaprine, urine Confirmed Positive(A) Not Detected 05/11/2023 12:19 PM [facility] Desipramine, urine Not Detected Not Detected 05/11/2023 12:19 PM [facility] Diazepam, urine Not Detected Not Detected 05/10 12:19 PM [facility] Doxepin, urine Not Detected Not Detected 2023 12:19 PM [facility] Ecstasy MDMA, urine Not Detected Not Detected 05/11/2023 12:19 PM [facility] Ecstasy Metab MDA, urine Not Detected Not Detected 05/11/2023 12:19 PM [facility] Fentanyl, urine Not Detected Not Detected 05/10 12:19 PM [facility] Fluoxetine, urine Not Detected Not Detected 07/2023 12:19 PM [facility] Gabapentin, urine Confirmed Positive(A) Not Detected 05/11/2023 12:19 PM [facility] Heroin Metab 6-acetylmorphine, urine Not Detected Not Detected 05/11/2023 12:19 PM [facility] Hydrocodone, urine Not Detected Not Detected 05/11/2023 12:19 PM [facility] Hydromorphone, urine Not Detected Not Detected 05/11/2023 12:19 PM [facility] Imipramine, urine Not Detected Not Detected 07/2023 12:19 PM [facility] Ketamine, urine Not Detected Not Detected 05/10 12:19 PM [facility] Lorazepam, urine Not Detected Not Detected 07/2023 12:19 PM [facility] Marijuana Metabolite, urine Confirmed Positive(A) Not Detected 05/11/2023 12:19 PM [facility] Meperidine, urine Not Detected Not Detected 07/2023 12:19 PM [facility] Meprobamate, urine Not Detected Not Detected 05/11/2023 12:19 PM [facility] Methadone Metab EDDP, urine Not Detected Not Detected 05/11/2023 12:19 PM [facility] Methadone, urine Not Detected Not Detected 07/2023 12:19 PM [facility] Methamphetamine, urine Confirmed Positive(A) Not Detected 05/11/2023 12:19 PM [facility] Methylphenidate, urine Not Detected Not Detected 05/11/2023 12:19 PM [facility] Mirtazapine, urine Not Detected Not Detected 05/11/2023 12:19 PM [facility] Morphine, urine Not Detected Not Detected 05/10 12:19 PM [facility] Norbuprenorphine, urine Not Detected Not Detected 05/11/2023 12:19 PM [facility] Nordiazepam, urine Not Detected Not Detected 05/11/2023 12:19 PM [facility] Desmethyldoxapine , urine Not Detected Not Detected 05/11/2023 12:19 PM [facility] Norfentanyl, urine Not Detected Not Detected 05/11/2023 12:19 PM [facility] Nortriptyline, urine Not Detected Not Detected 05/11/2023 12:19 PM [facility] O-desmethylvenlaf axine, urine Not Detected Not Detected 05/11/2023 12:19 PM [facility] Oxazepam, urine Not Detected Not Detected 05/10 12:19 PM [facility] Oxycodone, urine Confirmed Positive(A) Not Detected 05/11/2023 12:19 PM [facility] Oxymorphone, urine Not Detected Not Detected 05/11/2023 12:19 PM [facility] Paroxatine, urine Not Detected Not Detected 07/2023 12:19 PM [facility] Phencyclidine, urine Not Detected Not Detected 05/11/2023 12:19 PM [facility] Phenobarbital, urine Not Detected Not Detected 05/11/2023 12:19 PM [facility] Pregabalin, urine Not Detected Not Detected 07/2023 12:19 PM [facility] Quetiapine, urine Confirmed Positive(A) Not Detected 05/11/2023 12:19 PM [facility] Sertraline, urine Not Detected Not Detected 07/2023 12:19 PM [facility] Tapentadol, urine Not Detected Not Detected 07/2023 12:19 PM [facility] Temazepam, urine Not Detected Not Detected 07/2023 12:19 PM [facility] Tramadol, urine Not Detected Not Detected 05/10 12:19 PM [facility] Venlafaxine, urine Not Detected Not Detected 05/11/2023 12:19 PM [facility] Zolpidem, urine Not Detected Not Detected 05/10 12:19 PM [facility] Creatinine, Urine, Random 206 >20 mg/dL 05/11/2023 12:19 PM [facility] Medication Check Inconsistent with Med List(A) Consistent with Med List 05/11/2023 12:19 PM [facility] Patient Medication History Current Facility-Admin istered Medications Ordered in Epic: acetaminophen (TYLENOL) tablet 650 mg aspirin 81 MG chewable tablet ??- ADS Override Pull [START ON 05/08/2023] aspirin chewable tablet 81 mg atorvastatin (LIPITOR) tablet 40 mg benzocaine-men thol (Chloraseptic) lozenge 1 Lozenge senna (SENOKOT) tablet 2 Tablet And polyethylene glycol (MIRALAX) oral powder 17 g And bisacodyl (DULCOLAX) rectal suppository 10 mg calcium carbonate (TUMS) chewable tablet 1,000 mg cloNIDine (CATAPRES) tablet 0.1 mg diazePAM (VALIUM) tablet 2.5-10 mg Or diazePAM (VALIUM) injection 2.5-10 mg folic acid tablet 1 mg gabapentin (NEURONTIN) capsule 600 mg lidocaine (ASPERCREAM) 4 % patch 1 Patch [Held by provider in Manage Orders] lisinopril (ZESTRIL) tablet 10 mg melatonin tablet 6 mg ondansetron (ZOFRAN) injection 4 mg And prochlorperazi ne (COMPAZINE) injection 10 mg And metoclopramide (REGLAN) injection 5 mg metoprolol succinate (TOPROL XL) extended release tablet 12.5 mg OLANZapine (ZyPREXA) tablet 10 mg Or OLANZapine (ZyPREXA) 10 mg in sterile water 2 mL injection [Held by provider in Manage Orders] OLANZapine (ZyPREXA) tablet 20 mg [START ON 05/08/2023] pantoprazole DR (PROTONIX) tablet 40 mg [Held by provider in Manage Orders] propranolol (INDERAL) tablet 10 mg [Held by provider in Manage Orders] QUEtiapine (SEROquel) tablet 25 mg thiamine (VITAMIN B-1) 400 mg in sodium chloride 0.9 % 50 mL IVPB Followed by [START ON 05/10/2023] thiamine (VITAMIN B-1) 200 mg in sodium chloride 0.9 % 50 mL IVPB Followed by [START ON 05/15/2023] thiamine (VITAMIN B-1) tablet 100 mg [Held by provider in Manage Orders] traZODone (DESYREL) tablet 200 mg No current Epic-ordered outpatient medications on file. 05/11/2023 12:19 PM [facility] Medication Interpretation Not prescribed and detected: Alprazolam not prescribed and detected with metabolite [id number] zolam Cannabis detected as THC metabolite Citalopram not prescribed and detected Cyclobenzaprin e not prescribed and detected Methamphetamin e detected with metabolite amphetamine Oxycodone not prescribed and detected Prescribed and not detected: Diazepam prescribed and not detected Prescribed and detected: Gabapentin prescribed and detected Quetiapine prescribed and detected 05/11/2023 12:19 PM [facility] Urine Non-blood Collection / Unknown 05/07/2023 2:52 PM MANAGEMENT INFORMATION SYSTEMS DIRECTOR 05/07/2023 3:02 PM [facility] - 05/11/2023 12:19 PM MANAGEMENT INFORMATION SYSTEMS DIRECTOR The absence of expected drug(s) and/or drug metabolite(s) may indicate non-compliance, inappropriate timing of specimen collection relative to drug administration, poor drug absorption, diluted/adulterated urine or limitations of testing. The concentration must be greater than or equal to the cutoff concentration to be reported as positive. For medical purposes only: not valid for forensic, legal, or employment use. Analysis by LC-MS/MS Liquid Chromatography/Mass Spectrometry. This test was developed and its performance characteristics validated by [facility]. It has not been cleared nor approved by the FDA. Zaki Velásquez MD LAB_1 [facility] [address] [place] [address], [facility] * (ABNORMAL) Rapid Drug Panel, Urine (with Confirmation) with THC (05/07/2023 2:52 PM MANAGEMENT INFORMATION SYSTEMS DIRECTOR) [facility] Amphetamines Screen Presumptive Positive(A) Not Detected 05/07/2023 3:37 PM [facility] Barbiturates Screen Not Detected Not Detected 05/07/2023 3:37 PM [facility] Benzodiazepines Screen Presumptive Positive(A) Not Detected 05/07/2023 3:37 PM [facility] Buprenorphine Screen Not Detected Not Detected 05/07/2023 3:37 PM [facility] Cocaine Metabolite Screen Not Detected Not Detected 05/07/2023 3:37 PM [facility] Methadone Screen Not Detected Not Detected 05/07/2023 3:37 PM [facility] Opiates Screen Not Detected Not Detected 05/07/2023 3:37 PM [facility] Oxycodone Screen Not Detected Not Detected 05/07/2023 3:37 PM [facility] Phencyclidine (PCP) Screen Not Detected Not Detected 05/07/2023 3:37 PM [facility] THC (Marijuana) Metab Screen Presumptive Positive(A) Not Detected 05/07/2023 3:37 PM [facility] Creatinine, Urine, Random 206 >20 mg/dL 05/07/2023 3:37 PM [facility] Urine Non-blood Collection / Unknown 05/07/2023 2:52 PM MANAGEMENT INFORMATION SYSTEMS DIRECTOR 05/07/2023 3:02 PM MANAGEMENT INFORMATION SYSTEMS DIRECTOR [facility] - 05/07/2023 3:37 PM MANAGEMENT INFORMATION SYSTEMS DIRECTOR The absence of expected drug(s) and/or drug metabolite(s) may indicate non-compliance, inappropriate timing of specimen collection relative to drug administration, poor drug absorption, diluted/adulterated urine or limitations of testing. The concentration must be greater than or equal to the cutoff concentration to be reported as positive. For medical purposes only: not valid for forensic, legal, or employment use. Zaki Velásquez MD LAB_1 Performing Organization Address [facility] [[email or web address]] de Phone Number [address] * Rapid Fentanyl, Urine (with confirmation) (05/07/2023 2:52 PM MANAGEMENT INFORMATION SYSTEMS DIRECTOR) Rapid Fentanyl Screen Not Detected Not Detected 05/07/2023 3:37 PM MANAGEMENT INFORMATION SYSTEMS DIRECTOR [facility] Creatinine, Urine, Random 206 >20 mg/dL 05/07/2023 3:37 PM MANAGEMENT INFORMATION SYSTEMS DIRECTOR [facility] Urine Non-blood Collection / Unknown 05/07/2023 2:52 PM MANAGEMENT INFORMATION SYSTEMS DIRECTOR 05/07/2023 3:02 PM MANAGEMENT INFORMATION SYSTEMS DIRECTOR [facility] 05/07/2023 3:37 PM MANAGEMENT INFORMATION SYSTEMS DIRECTOR The absence of expected drug(s) and/or drug metabolite(s) may indicate non-compliance, inappropriate timing of specimen collection relative to drug administration, poor drug absorption, diluted/adulterated urine or limitations of testing. The concentration must be greater than or equal to the cutoff concentration to be reported as positive. For medical purposes only: not valid for forensic, legal, or employment use. Althea Grigsby PA-C LAB_1 Performing Organization Address [facility] [facility] [[email or web address]] de Phone Number [address] * Creatinine, Urine Random (05/07/2023 2:52 PM MANAGEMENT INFORMATION SYSTEMS DIRECTOR) Creatinine, Urine, Random 206 >20 mg/dL 05/07/2023 3:37 PM [facility] Urine Non-blood Collection / Unknown 05/07/2023 2:52 PM MANAGEMENT INFORMATION SYSTEMS DIRECTOR 05/07/2023 3:02 PM MANAGEMENT INFORMATION SYSTEMS DIRECTOR Zaki Velásquez MD LAB_1 Performing Organization Address [facility]/ZIP Co de Phone Number [address] * Sodium, Urine Random (05/07/2023 2:52 PM MANAGEMENT INFORMATION SYSTEMS DIRECTOR) Sodium, Urine Random 43 mmol/L 05/07/2023 4:55 PM [facility] Urine Non-blood Collection / Unknown 05/07/2023 2:52 PM MANAGEMENT INFORMATION SYSTEMS DIRECTOR 05/07/2023 3:02 PM MANAGEMENT INFORMATION SYSTEMS DIRECTOR Zaki Velásquez MD LAB_1 Performing Organization Address [facility]/ZIP Co de Phone Number [address] * (ABNORMAL) UA Conditional UC: Clean Catch (05/07/2023 2:52 PM MANAGEMENT INFORMATION SYSTEMS DIRECTOR) Pathologist [facility] [place] Urine Culture Comment Urinalysis results do not meet criteria for urine culture reflex. 05/07/2023 3:16 PM [facility] Urine Color Yellow 05/07/2023 3:16 PM [facility] Urine Clarity Clear Clear 05/07/2023 3:16 PM [facility] Specific Harper, Urine 1.042(H) <1.030 05/07/2023 3:16 PM [facility] Comment:The Specific gravity may be falsely elevated due to the presence of x- ray contrast media, high molecular weight drugs, protein OVER (>600) or Glucose OVER (>1000). If results needed contact lab to have specific gravity performed by alternate method. PH Urine 6.5 5.0 - 8.0 05/07/2023 3:16 PM [facility] Protein, Urine Qual (mg/dL) 30(A) Negative, 10 , 20 05/07/2023 3:16 PM [facility] Glucose Urine Qual (mg/dL) Normal (Negative) Normal (Negative), 30 , 50 05/07/2023 3:16 PM [facility] Ketones, Urine (mg/dL) 10(A) Negative, Trace 05/07/2023 3:16 PM [facility] Urobilinogen, Urine (EU/dL) Normal (Negative) Normal (Negative) 05/07/2023 3:16 PM [facility] Bilirubin Urine (mg/dL) Negative Negative 05/07/2023 3:16 PM [facility] Blood, Urine (mg/dL) Negative Negative, 0.03 (Trace) 05/07/2023 3:16 PM [facility] Nitrite Urine Negative Negative 05/07/2023 3:16 PM [facility] Leukocyte Esterase, Urine (Dean/uL) Negative Negative, 25 (Trace) 05/07/2023 3:16 PM [facility] Red Blood Cells 7(H) 0 - 3 /HPF 05/07/2023 3:16 PM [facility] White Blood Cells 5 0 - 5 /HPF 05/07/2023 3:16 PM [facility] Mucus Present(A) None Seen /HPF 05/07/2023 3:16 PM [facility] Hyaline Casts 11(H) <=2 /LPF 05/07/2023 3:16 PM [facility] Urine Source Clean Catch 05/07/2023 3:16 PM [facility] Urine URINE SPECIMEN COLLECTION, CLEAN CATCH / Unknown Non-blood Collection / Unknown 05/07/2023 2:52 PM MANAGEMENT INFORMATION SYSTEMS DIRECTOR 05/07/2023 3:04 PM MANAGEMENT INFORMATION SYSTEMS DIRECTOR [facility] - 05/07/2023 3:16 PM MANAGEMENT INFORMATION SYSTEMS DIRECTOR The qualitative interpretive guidance provided (e.g., small, moderate, large) is intended to aid in quantitative result interpretation. It is not itself an FDA-cleared test result. Shanta Kaur MD LAB_1 Performing Organization Address City/State/[facility] [place] [address], [facility] * Phosphatidylethanol (PEth), Quantitative (05/07/2023 2:11 PM MANAGEMENT INFORMATION SYSTEMS DIRECTOR) PEth 16:0/18:1 (POPEth) 142 ng/mL 05/11/2023 2:45 PM MANAGEMENT INFORMATION SYSTEMS DIRECTOR [facility] Comment: PEth 16:0/18:1 (POPEth) Less than 10 ng/mL............Not detected Less than 20 ng/mL............Abstinence or light alcohol consumption 20 - 200 ng/mL................Moderate alcohol consumption Greater than 200 ng/mL........Heavy alcohol consumption or chronic alcohol use (Reference: Layne Mann and Toni Muñoz 2018 J. Forensic Sci) PEth 16:0/18:2 (PLPEth) 100 ng/mL 05/11/2023 2:45 PM MANAGEMENT INFORMATION SYSTEMS DIRECTOR [facility] Comment:Reference ranges are not well established. EER Peth See Note 05/11/2023 2:45 PM MANAGEMENT INFORMATION SYSTEMS DIRECTOR Feedback Comment: Authorized individuals can access the [facility] Enhanced Report using the following link: [email or web address] PEth Interpretation See Comment 05/11/2023 2:45 PM MANAGEMENT INFORMATION SYSTEMS DIRECTOR Feedback Comment: Phosphatidylethanol (PEth) is a group of phospholipids formed in the presence of ethanol, phospholipase D and phosphatidylcholine. PEth is known to be a direct alcohol biomarker. The predominant PEth homologues are PEth 16:0/18:1 (POPEth) and PEth 16:0/18:2 (PLPEth), which account for 37-46% and 26-28% of the total PEth homologues, respectively. PEth is incorporated into the phospholipid membrane of red blood cells and has a general half-life of 4-10 days and a window of detection of 2-4 weeks. However, the window of detection is longer in individuals who chronically or excessively consume alcohol. The limit of quantification is 10 ng/mL. Serial monitoring of PEth may be helpful in monitoring alcohol abstinence over time. PEth results should be interpreted in the context of the patient's clinical and behavioral history. Patients with advanced liver disease may have falsely elevated PEth concentrations (Elda SAMAYOA et al 2018, Alcoholism Clinical & Experimental Research). This test was developed and its performance characteristics determined by [facility]. It has not been cleared or approved by the U.S. Food and Drug Administration. This test was performed in a CLIA-certified laboratory and is intended for clinical purposes. Performed By: [facility] [address] [place] [id number] Windshield Technician: Ben Ellison MD, PhD CLIA Number: [id number] Blood Venipuncture / Unknown 05/07/2023 2:11 PM MANAGEMENT INFORMATION SYSTEMS DIRECTOR 05/07/2023 2:14 PM MANAGEMENT INFORMATION SYSTEMS DIRECTOR Althea Grigsby PA-C LAB_1 Performing Organization Address City/[facility]/ZIP Co de Phone Number [facility] [address] [place], [place] [address] [place] [address] * (ABNORMAL) XA Unfractionated Heparin (05/07/2023 2:11 PM MANAGEMENT INFORMATION SYSTEMS DIRECTOR) Heparin 10a Level (Unfractionate d Hep) 0.11(L) 0.30 - 0.70 IU/mL 05/07/2023 2:38 PM MANAGEMENT INFORMATION SYSTEMS DIRECTOR [facility] Blood Venipuncture / Unknown 05/07/2023 2:11 PM MANAGEMENT INFORMATION SYSTEMS DIRECTOR 05/07/2023 2:14 PM MANAGEMENT INFORMATION SYSTEMS DIRECTOR Zaki Velásquez MD LAB_1 Performing Organization Address [facility]/ZIP Co de Phone Number [facility] [address] [place] [address], [facility] * EJECTION FRACTION (05/07/2023 1:15 PM MANAGEMENT INFORMATION SYSTEMS DIRECTOR) Pathologist [facility] [place] EF 60 % [facility] EF test type ECHO PROS[facility]V 05/07/2023 1:15 PM MANAGEMENT INFORMATION SYSTEMS DIRECTOR Trish Patel MD [facility] NEURO UROLOGIST/RH Performing Organization Address [facility] Co de Phone Number [facility] [address] [place] [address] * CARDIAC ROUTINE ECHOCARDIOGRAM (05/07/2023 1:15 PM MANAGEMENT INFORMATION SYSTEMS DIRECTOR) 05/07/2023 1:15 PM MANAGEMENT INFORMATION SYSTEMS DIRECTOR Narrative [facility] - 05/07/2023 2:56 PM MANAGEMENT INFORMATION SYSTEMS DIRECTOR Summary ??1. Technically difficult exam, contrast was used. ??2. Sinus rhythm during study. ??3. grossly normal LV size and systolic function, EF 60%. No obvious focal wall motion abnormalities. ??4. Grossly cxtb-io-hfkhqvkm LVH. ??5. Grossly normal RV size and systolic function. ??6. Mild aortic valve regurgitation. ??7. Mildly to moderately calcified annulus. Mean gradient 2.71 mm Hg at a heart rate of 93 beats per minute. ??8. Compared to outside study from March 14, 2023, the current study reveals last aortic regurgitation. Report Signatures Finalized by David Ennsi on 05/07/2023 02:56 PM Procedure Note David Ennis MD - 05/07/2023 Summary 1. Technically difficult exam, contrast was used. 2. Sinus rhythm during study. 3. grossly normal LV size and systolic function, EF 60%. No obviousfocal wall motion abnormalities. 4. Grossly ppzp-jc-iaxeizse LVH. 5. Grossly normal RV size and systolic function. 6. Mild aortic valve regurgitation. 7. Mildly to moderately calcified annulus. Mean gradient 2.71 mm Hg at aheart rate of 93 beats per minute. 8. Compared to outside study from March 14, 2023, the current studyreveals last aortic regurgitation. Report Signatures Finalized by David Ennis on 05/07/2023 02:56 PM Trish Patel MD [facility] ECHO/ RH [facility] [address] [place] [address] * (ABNORMAL) Lipid Panel & Direct LDL (if Needed) (05/07/2023 12:06 PM MANAGEMENT INFORMATION SYSTEMS DIRECTOR) Cholesterol 91 0 - 199 mg/dL 05/07/2023 3:44 PM [facility] Triglyceride 77 <=149 mg/dL 05/07/2023 3:44 PM [facility] HDL Cholesterol 31(L) >=40 mg/dL 3:44 PM [facility] LDL, Calculated 45 <130 mg/dL 3:44 PM [facility] Non HDL Chol, Calculated 60 <=159 mg/dL 05/07/2023 3:44 PM [facility] Cholesterol/HDL Ratio 2.9 <=5.0 05/07/2023 3:44 PM [facility] Blood Venipuncture / Unknown 05/07/2023 12:06 PM MANAGEMENT INFORMATION SYSTEMS DIRECTOR 05/07/2023 12:13 PM MANAGEMENT INFORMATION SYSTEMS DIRECTOR Zaki Velásquez MD LAB_1 Performing Organization Address [facility] Co de Phone Number [address] * (ABNORMAL) Troponin I (05/07/2023 12:06 PM MANAGEMENT INFORMATION SYSTEMS DIRECTOR) Troponin I 0.88(H) 0.00 - 0.03 ng/mL 05/07/2023 12:53 PM MANAGEMENT INFORMATION SYSTEMS DIRECTOR [facility] Blood Venipuncture / Unknown 05/07/2023 12:06 PM MANAGEMENT INFORMATION SYSTEMS DIRECTOR 05/07/2023 12:13 PM MANAGEMENT INFORMATION SYSTEMS DIRECTOR Trish Patel MD LAB_1 Performing Organization Address [facility] Co de Phone [address] * (ABNORMAL) Troponin I (05/07/2023 9:36 AM MANAGEMENT INFORMATION SYSTEMS DIRECTOR) Pathologist [facility] [place] Troponin I 0.60(H) 0.00 - 0.03 ng/mL 05/07/2023 10:17 AM MANAGEMENT INFORMATION SYSTEMS DIRECTOR [facility] Blood Venipuncture / Unknown 05/07/2023 9:36 AM MANAGEMENT INFORMATION SYSTEMS DIRECTOR 05/07/2023 9:42 AM MANAGEMENT INFORMATION SYSTEMS DIRECTOR Trish Patel MD LAB_1 Performing Organization Address [facility] Co de Phone [address] * RSV RNA, Molecular Detection (05/07/2023 9:35 AM MANAGEMENT INFORMATION SYSTEMS DIRECTOR) [facility] RSV by PCR Not Detected Not Detected 05/07/2023 10:34 AM [facility] Swab (Source Required) (Nasopharyngeal swab) Non-blood Collection / Unknown 05/07/2023 9:35 AM MANAGEMENT INFORMATION SYSTEMS DIRECTOR 05/07/2023 9:42 AM MANAGEMENT INFORMATION SYSTEMS DIRECTOR [facility] 05/07/2023 10:34 AM MANAGEMENT INFORMATION SYSTEMS DIRECTOR Method: Qualitative real-time PCR assay to detect RSV Viral RNA. Trish Patel MD LAB_1 Performing Organization Address [facility] Co de Phone Number [address] * Influenza A and B by PCR (05/07/2023 9:35 AM MANAGEMENT INFORMATION SYSTEMS DIRECTOR) Pathologist [facility] [place] INFLUENZA A MOLECULAR Not Detected Not Detected 05/07/2023 10:34 AM [facility] INFLUENZA B MOLECULAR Not Detected Not Detected 05/07/2023 10:34 AM [facility] Swab (Source Required) (Nasopharyngeal swab) Non-blood Collection / Unknown 05/07/2023 9:35 AM MANAGEMENT INFORMATION SYSTEMS DIRECTOR 05/07/2023 9:42 AM MANAGEMENT INFORMATION SYSTEMS DIRECTOR [facility] 05/07/2023 10:34 AM MANAGEMENT INFORMATION SYSTEMS DIRECTOR Methodology: ??Qualitative real-time PCR assay to detect the Influenza type A and type B viral RNA Trish Patel MD LAB_1 Performing Organization Address [facility]/ZIP Co de Phone Number [address] * 2019 Novel Coronavirus (COVID-19) (05/07/2023 9:35 AM MANAGEMENT INFORMATION SYSTEMS DIRECTOR) [facility] COVID-19 Interpretation Not Detected Not Detected 05/07/2023 10:34 AM [facility] Source Nasopharyngeal swab 05/07/2023 10:34 AM [facility] Swab (Source Required) (Nasopharyngeal swab) Non-blood Collection / Unknown 05/07/2023 9:35 AM MANAGEMENT INFORMATION SYSTEMS DIRECTOR 05/07/2023 9:42 AM MANAGEMENT INFORMATION SYSTEMS DIRECTOR [facility] 05/07/2023 10:34 AM MANAGEMENT INFORMATION SYSTEMS DIRECTOR Test performed by real-time PCR. This test has been authorized by the FDA under an Emergency Use Authorization (EUA) for use by authorized laboratories. Trish Patel MD LAB_1 Performing Organization Address [facility]/State/ZIP Co de Phone Number [address] * (ABNORMAL) Blood Gas, Venous (05/07/2023 7:37 AM MANAGEMENT INFORMATION SYSTEMS DIRECTOR) [facility] PH, Venous 7.37 7.31 - 7.41 05/07/2023 7:42 AM [facility] PCO2, Venous 54(H) 40 - 52 mmHg 05/07/2023 7:42 AM [facility] PO2, Venous 58(H) 30 - 50 mmHg 05/07/2023 7:42 AM [facility] HCO3, Calculated 31.0(H) 23.0 - 30.0 mmol/L 05/07/2023 7:42 AM [facility] O2 Saturation, Measured, Venous 89.8(H) 60.0 - 80.0 % 05/07/2023 7:42 AM [facility] Base Excess, Calculated 3.9(H) -2.0 - 2.0 mmol/L 05/07/2023 7:42 AM [facility] Blood Venipuncture / Unknown 05/07/2023 7:37 AM MANAGEMENT INFORMATION SYSTEMS DIRECTOR 05/07/2023 7:40 AM MANAGEMENT INFORMATION SYSTEMS DIRECTOR Trish Patel MD LAB_1 [place] [address], [facility] * ECG 12-Lead STAT (05/07/2023 6:30 AM MANAGEMENT INFORMATION SYSTEMS DIRECTOR) Ventricular Rate 88 BPM [facility] Atrial Rate 88 BPM [facility] P-R Interval 158 ms [facility] QRS Duration 90 ms M[facility] QT 336 ms MUSE [facility] QTc 406 ms MUSE GHP P Boissevain 57 degrees MUSE GHP R [place] 27 degrees MUSE GHP T [place]ain 210 degrees MUSE GHP 05/07/2023 6:30 AM MANAGEMENT INFORMATION SYSTEMS DIRECTOR Narrative [facility] - 05/07/2023 8:23 AM MANAGEMENT INFORMATION SYSTEMS DIRECTOR Sinus rhythm Minimal voltage criteria for LVH, may be normal variant ST & T wave abnormality, consider lateral ischemia Abnormal ECG When compared with ECG of 07-MAY-2023 05:01, Nonspecific T wave abnormality has replaced inverted T waves in Inferior leads QT has shortened Confirmed by Queenie Blue ([id number]) on 05/07/2023 8:23:01 AM Procedure Note Queenie Blue MD - 05/07/2023 Sinus rhythm Minimal voltage criteria for LVH, may be normal variant ST & T wave abnormality, consider lateral ischemia Abnormal ECG When compared with ECG of 07-MAY-2023 05:01, Nonspecific T wave abnormality has replaced inverted T waves in Inferiorleads QT has shortened Confirmed by Queenie Blue ([id number]) on 05/07/2023 8:23:01 AM Shanta Kaur MD EKG Performing Organization Address [facility]/ZIP Co de Phone Number [facility] [address] [place] [address] * (ABNORMAL) Creatinine / GFR (05/07/2023 6:22 AM MANAGEMENT INFORMATION SYSTEMS DIRECTOR) Creatinine 2.46(H) 0.73 - 1.18 mg/dL 05/07/2023 7:36 AM [facility] GFR, Estimated 30(L) >60 mL/min/1.7 3m2 05/07/2023 7:36 AM [facility] Blood Venipuncture / Unknown 05/07/2023 6:22 AM MANAGEMENT INFORMATION SYSTEMS DIRECTOR 05/07/2023 6:26 AM MANAGEMENT INFORMATION SYSTEMS DIRECTOR Shanta Kaur MD LAB_1 Performing Organization Address [facility]/ZIP Co de Phone Number [address] * (ABNORMAL) Troponin I (05/07/2023 6:22 AM MANAGEMENT INFORMATION SYSTEMS DIRECTOR) Troponin I 0.20(H) 0.00 - 0.03 ng/mL 05/07/2023 7:02 AM [facility] Blood Venipuncture / Unknown 05/07/2023 6:22 AM MANAGEMENT INFORMATION SYSTEMS DIRECTOR 05/07/2023 6:26 AM MANAGEMENT INFORMATION SYSTEMS DIRECTOR Shanta Kaur MD LAB_1 Performing Organization Address [facility] Co de Phone Number [address] * Lactate Panel, Venous POCT (05/07/2023 6:14 AM MANAGEMENT INFORMATION SYSTEMS DIRECTOR) Lactate, Whole Blood 0.83 0.50 - 2.00 mmol/L 05/07/2023 6:16 AM [facility] PO2, Venous 36 30 - 50 mmHg 05/07/2023 6:16 AM [facility] Performing Location [facility] ED A 05/07/2023 6:16 AM [facility] Blood 05/07/2023 6:14 AM MANAGEMENT INFORMATION SYSTEMS DIRECTOR 05/07/2023 6:16 AM MANAGEMENT INFORMATION SYSTEMS DIRECTOR Shanta Kaur MD LAB_1 [facility] [address] [place] [address], [facility] * CT Angio Chest W IV Cont PE Study (05/07/2023 5:47 AM MANAGEMENT INFORMATION SYSTEMS DIRECTOR) Anatomical Region Laterality Modality Chest, Lung, Vascular Computed T omography 05/07/2023 5:47 AM MANAGEMENT INFORMATION SYSTEMS DIRECTOR Narrative 05/07/2023 5:58 AM MANAGEMENT INFORMATION SYSTEMS DIRECTOR EXAM: CT ANGIO CHEST W IV CONT PE STUDY LOCATION: [facility] DATE: 05/07/2023 INDICATION: Hypoxia, syncope, ischemic ECG changes COMPARISON: 02/09/2023 TECHNIQUE: CT chest pulmonary angiogram during arterial phase injection of IV contrast. Multiplanar reformats and MIP reconstructions were performed. Dose reduction techniques were used. CONTRAST: IOHEXOL 350 MG/ML IV SOLN 100 mL FINDINGS: ANGIOGRAM CHEST: Main pulmonary artery is again dilated measuring 4.4 cm. Evaluation for pulmonary embolism is mildly limited by motion artifact and suboptimal opacification of the pulmonary arteries. No convincing pulmonary embolus identified within these limitations.. Thoracic aorta is negative for dissection. No CT evidence of right heart strain. LUNGS AND PLEURA: Mild dependent atelectasis bilaterally. A 3 mm nodule again seen in the left upper lobe on series 5 image 177, unchanged. 2 mm left lower lobe nodule on image 215 also stable. 2 mm left lower lobe nodule on image 165 also stable. 2 mm right upper lobe nodule on image 130 also stable. No confluent consolidation, pleural effusion or pneumothorax. MEDIASTINUM/AXILLAE: No lymphadenopathy. Heart size is normal without pericardial effusion. CORONARY ARTERY CALCIFICATION: None. UPPER ABDOMEN: Normal. MUSCULOSKELETAL: Anterior cervical fusion instrumentation is partially imaged. Moderate degenerative disc disease at C6/C7. No other significant osseous abnormalities. IMPRESSION: 1. ??No convincing pulmonary embolus identified, within limitations of motion artifact and suboptimal opacification of the pulmonary arterial system. No pneumonia. 2. ??Dilated main pulmonary artery measuring 4.4 cm, unchanged, indeterminate but may indicate underlying pulmonary hypertension. 3. ??Stable 2 to 3 mm bilateral pulmonary nodules. Per Fleischner Society 2017 guideline, a one-year follow-up chest CT could be considered if patient is at high risk for lung cancer. Without lung cancer risk factor, no follow-up is necessary. Procedure Note Sánchez Mazariegos MD - 05/07/2023 EXAM: CT ANGIO CHEST W IV CONT PE STUDY LOCATION: [facility] DATE: 05/07/2023 INDICATION: Hypoxia, syncope, ischemic ECG changes COMPARISON: 02/09/2023 TECHNIQUE: CT chest pulmonary angiogram during arterial phase injection ofIV contrast. Multiplanar reformats and MIP reconstructions were performed.Dose reduction techniques were used. CONTRAST: IOHEXOL 350 MG/ML IV SOLN 100 mL FINDINGS: ANGIOGRAM CHEST: Main pulmonary artery is again dilated measuring 4.4 cm.Evaluation for pulmonary embolism is mildly limited by motion artifact andsuboptimal opacification of the pulmonary arteries. No convincingpulmonary embolus identified within these limitations.. Thoracic aorta isnegative for dissection. No CT evidence of right heart strain. LUNGS AND PLEURA: Mild dependent atelectasis bilaterally. A 3 mm noduleagain seen in the left upper lobe on series 5 image 177, unchanged. 2 mmleft lower lobe nodule on image 215 also stable. 2 mm left lower lobenodule on image 165 also stable. 2 mm right upper lobe nodule on image 130also stable. No confluent consolidation, pleural effusion orpneumothorax. MEDIASTINUM/AXILLAE: No lymphadenopathy. Heart size is normal withoutpericardial effusion. CORONARY ARTERY CALCIFICATION: None. UPPER ABDOMEN: Normal. MUSCULOSKELETAL: Anterior cervical fusion instrumentation is partiallyimaged. Moderate degenerative disc disease at C6/C7. No other significantosseous abnormalities. IMPRESSION: 1. No convincing pulmonary embolus identified, within limitations ofmotion artifact and suboptimal opacification of the pulmonary arterialsystem. No pneumonia. 2. Dilated main pulmonary artery measuring 4.4 cm, unchanged,indeterminate but may indicate underlying pulmonary hypertension. 3. Stable 2 to 3 mm bilateral pulmonary nodules. Per Fleischner [id number] guideline, a one-year follow-up chest CT could be considered ifpatient is at high risk for lung cancer. Without lung cancer risk factor,no follow-up is necessary. Shanta Kaur MD RAD CT * POC US Basic Cardiac (05/07/2023 5:13 AM MANAGEMENT INFORMATION SYSTEMS DIRECTOR) Anatomical Region Laterality Modality Chest, Cardiac, US Cardiac Other Narrative 05/07/2023 11:08 AM MANAGEMENT INFORMATION SYSTEMS DIRECTOR Aaron Patterson MD ? 05/07/2023 ??2:31 PM [facility] Point of Care Ultrasound Interpretation POC US Basic Cardiac Date/Time: 05/07/2023 11:08 AM Performed by: Aaron Patterson MD Authorized by: Shanta Kaur MD ?? Point of Care Ultrasound: Basic Cardiac Indications: Shortness of Breath and Syncope Window: Adequate for full imaging and interpretation Findings/ Impression (Within the context of limited ygzjj-ki-uppd ultrasound): Mildly Depressed LV Function, Right Ventricle Enlarged with positive D sign on parasternal short axis view concerning for elevated right-sided pressures, No Pericardial Effusion, and IVC Dilated Shanta Kaur MD RAD POC US * ECG 12-Lead STAT (EKG) (05/07/2023 5:01 AM MANAGEMENT INFORMATION SYSTEMS DIRECTOR) Ventricular Rate 89 BPM [facility] Atrial Rate 89 BPM [facility] P-R Interval 152 ms MUSE [facility] QRS Duration 90 ms MUSE GHP QT 426 ms MUSE GHP QTc 518 ms MUSE GHP P Boissevain 63 degrees MUSE GHP R [place]ain 45 degrees MUSE GHP T [place]ain 252 degrees MUSE GHP 05/07/2023 5:01 AM MANAGEMENT INFORMATION SYSTEMS DIRECTOR Narrative [facility]USE [facility] - 05/07/2023 8:29 AM MANAGEMENT INFORMATION SYSTEMS DIRECTOR Sinus rhythm Minimal voltage criteria for LVH, may be normal variant T wave abnormality, consider inferolateral ischemia Marked T wave abnormality, consider anterior ischemia Prolonged QT Abnormal ECG When compared with ECG of 10-SEP-2015 13:20, T wave inversion now evident in Inferior leads T wave inversion now evident in Lateral leads QT has lengthened Confirmed by Queenie Blue ([id number]) on 05/07/2023 8:29:53 AM Procedure Note Queenie Blue MD - 05/07/2023 Sinus rhythm Minimal voltage criteria for LVH, may be normal variant T wave abnormality, consider inferolateral ischemia Marked T wave abnormality, consider anterior ischemia Prolonged QT Abnormal ECG When compared with ECG of 10-SEP-2015 13:20, T wave inversion now evident in Inferior leads T wave inversion now evident in Lateral leads QT has lengthened Confirmed by Queenie Blue ([id number]) on 05/07/2023 8:29:53 AM Shanta Kaur MD EKG Performing Organization Address City/[facility] [facility]/ZIP Co de Phone Number [facility] [address] [place] [address] * INR/PROTIME (05/07/2023 4:20 AM MANAGEMENT INFORMATION SYSTEMS DIRECTOR) Protime 14.0 11.8 - 14.6 Seconds 05/07/2023 7:55 AM [facility] INR 1.1 0.9 - 1.1 05/07/2023 7:55 AM [facility] Blood Venipuncture / Unknown 05/07/2023 4:20 AM MANAGEMENT INFORMATION SYSTEMS DIRECTOR 05/07/2023 4:35 AM MANAGEMENT INFORMATION SYSTEMS DIRECTOR Narrative [facility] - 05/07/2023 7:55 AM MANAGEMENT INFORMATION SYSTEMS DIRECTOR Therapeutic range determined by protocol established by anticoagulation provider. Shanta Kaur MD LAB_1 Performing Organization Address [facility]/ZIP Co de Phone Number [address] * (ABNORMAL) APTT (Activated Partial Thromboplastin Time) (05/07/2023 4:20 AM MANAGEMENT INFORMATION SYSTEMS DIRECTOR) Pathologist [facility] [place] APTT 40.4(H) 22.5 - 36.5 Seconds 05/07/2023 7:55 AM [facility] Blood Venipuncture / Unknown 05/07/2023 4:20 AM MANAGEMENT INFORMATION SYSTEMS DIRECTOR 05/07/2023 4:35 AM MANAGEMENT INFORMATION SYSTEMS DIRECTOR Shanta Kaur MD LAB_1 Performing Organization Address [facility]/ZIP Co de Phone Number [address] * B-Type Natriuretic Peptide (05/07/2023 4:20 AM MANAGEMENT INFORMATION SYSTEMS DIRECTOR) B Type Natr. Peptide 15 <=99 pg/mL 05/07/2023 7:05 AM [facility] Blood Venipuncture / Unknown 05/07/2023 4:20 AM MANAGEMENT INFORMATION SYSTEMS DIRECTOR 05/07/2023 4:34 AM MANAGEMENT INFORMATION SYSTEMS DIRECTOR Shanta Kaur MD LAB_1 Performing Organization Address [facility] Co de Phone Number [address] * Liver Panel (Hepatic Function Panel) (05/07/2023 4:20 AM MANAGEMENT INFORMATION SYSTEMS DIRECTOR) Alkaline Phosphatase 60 40 - 150 U/L 05/07/2023 6:23 AM [facility] Bilirubin, Total 1.1 0.2 - 1.2 mg/dL 05/07/2023 6:23 AM [facility] Bilirubin, Direct 0.4 0.0 - 0.5 mg/dL 05/07/2023 6:23 AM [facility] AST (SGOT) 30 10 - 40 U/L 05/07/2023 6:23 AM [facility] ALT (SGPT) 22 <=55 U/L 05/07/2023 6:23 AM [facility] Protein, Total 6.5 6.4 - 8.3 g/dL 05/07/2023 6:23 AM [facility] Albumin 3.5 3.5 - 5.0 g/dL 05/07/2023 6:23 AM [facility] Blood Venipuncture / Unknown 05/07/2023 4:20 AM MANAGEMENT INFORMATION SYSTEMS DIRECTOR 05/07/2023 4:35 AM MANAGEMENT INFORMATION SYSTEMS DIRECTOR Shanta Kaur MD LAB_1 Performing Organization Address [facility] Co de Phone Number [address] * (ABNORMAL) D Dimer, Quantitative (05/07/2023 4:20 AM MANAGEMENT INFORMATION SYSTEMS DIRECTOR) D Dimer, Quant 0.74(H) <=0.50 ug/mL FEU 05/07/2023 5:53 AM [facility] Blood Venipuncture / Unknown 05/07/2023 4:20 AM MANAGEMENT INFORMATION SYSTEMS DIRECTOR 05/07/2023 4:35 AM MANAGEMENT INFORMATION SYSTEMS DIRECTOR Narrative [facility] - 05/07/2023 5:53 AM MANAGEMENT INFORMATION SYSTEMS DIRECTOR A D-dimer level <=0.50 ug/mL FEU in a patient with a low clinical pretest probability for a 1st episode of DVT can rule out lower extremity DVT (rate of DVT in next 3 months < 2%). ?? For patients greater than 50 years of age, the application of age-adjusted cut- off values for D-Dimer may increase the specificity without significant effect on sensitivity. The results in this laboratory are reported as ug/mL FEU. The calculation for age adjusted cut off in ug/mL FEU = age in years x 0.01 ug/mL FEU. For example, the cut off for a 76 year old male is 76 x 0.01 ug/mL FEU = <=0.76 ug/mL FEU. Increased D-dimer is seen in thromboembolism, DIC, liver disease, renal disease, cardiac infarct and failure, cancer, , stroke, infection, recent surgery, hemorrhage and age > 70 years. D-dimer levels decrease with anticoagulation therapy and increasing clot age. Shanta Kaur MD LAB_1 Performing Organization Address [facility] Co de Phone Number [address] * Extra Blue top tube (05/07/2023 4:20 AM MANAGEMENT INFORMATION SYSTEMS DIRECTOR) Extra Blue Top Drawn Specimen will be held for 24 hours 05/07/2023 6:00 AM [facility] Blood Venipuncture / Unknown 05/07/2023 4:20 AM MANAGEMENT INFORMATION SYSTEMS DIRECTOR 05/07/2023 4:35 AM MANAGEMENT INFORMATION SYSTEMS DIRECTOR Shanta Kaur MD LAB_1 Performing Organization Address [facility] [[email or web address]] de Phone Number [address] * Magnesium (05/07/2023 4:20 AM MANAGEMENT INFORMATION SYSTEMS DIRECTOR) Magnesium 2.0 1.6 - 2.6 mg/dL 05/07/2023 5:00 AM [facility] Blood Venipuncture / Unknown 05/07/2023 4:20 AM MANAGEMENT INFORMATION SYSTEMS DIRECTOR 05/07/2023 4:35 AM MANAGEMENT INFORMATION SYSTEMS DIRECTOR Shanta Kaur MD LAB_1 Performing Organization Address [facility]/ZIP Co de Phone Number [address] * Alcohol,Ethyl Level (05/07/2023 4:20 AM MANAGEMENT INFORMATION SYSTEMS DIRECTOR) Pathologist [facility] [place] Ethyl Alcohol <0.01 <=0.01 g/dL 05/07/2023 5:00 AM [facility] Blood Venipuncture / Unknown 05/07/2023 4:20 AM MANAGEMENT INFORMATION SYSTEMS DIRECTOR 05/07/2023 4:35 AM MANAGEMENT INFORMATION SYSTEMS DIRECTOR Formerly [facility] - 05/07/2023 5:00 AM MANAGEMENT INFORMATION SYSTEMS DIRECTOR For medical purposes only; not valid for forensic, legal, or employment use. Shanta Kaur MD LAB_1 Performing Organization Address [facility] Co de Phone Number [address] * (ABNORMAL) Troponin I (05/07/2023 4:20 AM MANAGEMENT INFORMATION SYSTEMS DIRECTOR) Pathologist [facility] [place] Troponin I 0.13(H) 0.00 - 0.03 ng/mL 05/07/2023 5:04 AM [facility] Blood Venipuncture / Unknown 05/07/2023 4:20 AM MANAGEMENT INFORMATION SYSTEMS DIRECTOR 05/07/2023 4:35 AM MANAGEMENT INFORMATION SYSTEMS DIRECTOR Shanta Kaur MD LAB_1 Performing Organization Address [facility] Co de Phone Number [address] * (ABNORMAL) Complete Blood Count -no Diff (05/07/2023 4:20 AM MANAGEMENT INFORMATION SYSTEMS DIRECTOR) WBC 9.4 3.5 - 10.5 x10(9)/L 05/07/2023 4:53 AM [facility] RBC 5.96(H) 4.32 - 5.72 x10(12)/L 05/07/2023 4:53 AM [facility] Hemoglobin 17.6(H) 13.5 - 17.5 g/dL 05/07/2023 4:53 AM [facility] HCT 53.4(H) 38.8 - 50.0 % 05/07/2023 4:53 AM [facility] MCV 89.6 80.0 - 100.0 fL 05/07/2023 4:53 AM [facility] MCH 29.5 27.6 - 33.3 pg 05/07/2023 4:53 AM [facility] MCHC 33.0 31.5 - 35.2 g/dL 05/07/2023 4:53 AM [facility] RDW 13.6 11.9 - 15.5 % 05/07/2023 4:53 AM [facility] Platelets 175 150 - 450 x10(9)/L 05/07/2023 4:53 AM [facility] Automated NRBC 0 <=0 /100 WBC 05/07/2023 4:53 AM [facility] Blood Venipuncture / Unknown 05/07/2023 4:20 AM MANAGEMENT INFORMATION SYSTEMS DIRECTOR 05/07/2023 4:34 AM MANAGEMENT INFORMATION SYSTEMS DIRECTOR Shanta Kaur MD LAB_1 Performing Organization Address City/State/[facility] Co de Phone Number [address] * (ABNORMAL) Basic Metabolic Panel (05/07/2023 4:20 AM MANAGEMENT INFORMATION SYSTEMS DIRECTOR) Sodium 141 136 - 145 mmol/L 05/07/2023 5:00 AM [facility] Potassium 3.3(L) 3.5 - 5.1 mmol/L 05/07/2023 5:00 AM [facility] Chloride 102 98 - 109 mmol/L 05/07/2023 5:00 AM [facility] CO2 26 20 - 29 mmol/L 05/07/2023 5:00 AM [facility] Anion Gap 13 7 - 16 mmol/L 05/07/2023 5:00 AM [facility] Calcium 9.4 8.4 - 10.4 mg/dL 05/07/2023 5:00 AM [facility] BUN 24 7 - 26 mg/dL 05/07/2023 5:00 AM [facility] Creatinine 2.29(H) 0.73 - 1.18 mg/dL 05/07/2023 5:00 AM [facility] Glucose 95 70 - 100 mg/dL 05/07/2023 5:00 AM [facility] Comment:The given reference range is for the fasting state. Non-fasting reference range for glucose is 70 - 180 mg/dL. GFR, Estimated 32(L) >60 mL/min/1.7 3m2 05/07/2023 5:00 AM [facility] Blood Venipuncture / Unknown 05/07/2023 4:20 AM MANAGEMENT INFORMATION SYSTEMS DIRECTOR 05/07/2023 4:35 AM [facility] Shanta Kaur MD LAB_1 Performing Organization Address City/State/[facility] Co de Phone Number [facility] [address] [place] [address], [facility] documented in this encounter Visit Diagnoses Diagnosis Syncope- Primary Syncope and collapse Syncope and collapse USAMA (acute kidney injury) (HRC) Acute kidney failure, unspecified Hypokalemia Hypopotassemia Acute electrocardiogram changes Elevated troponin Other abnormal blood chemistry Acute respiratory failure with hypoxia (HRC) Symptomatic hypotension Blood alcohol request Examination for medicolegal reason Alcohol use disorder Methamphetamine use (HRC) Nondependent amphetamine or related acting sympathomimetic abuse, unspecified Benzodiazepine misuse S/P lumbar spinal fusion Arthrodesis status Troponin level elevated Other abnormal blood chemistry USAMA (acute kidney injury) (HRC) Acute kidney failure, unspecified Substance induced mood disorder (HRC) Drug-induced mood disorder Substance or medication-induced psychotic disorder (HRC) Polysubstance dependence (HRC) Combinations of drug dependence excluding opioid type drug, unspecified * Plan of Care - Marimar León RN - 05/08/2023 6:04 PM CST [facility] Discharge Note - Nursing Admission Date/Time: 05/07/2023 3:28 AM Attending MD: Patient discharged: NE 4 room No 42 . Discharge Date: 05/08/2023 Discharge Time: 6:15 PM Patient accompanied by: self . Transported by: Wheelchair Valuables were taken home by patient: Yes Discharge instructions given and explained to patient: No, Discharge Patient Education Plan completed, taught, and provided to patient/caregiver at discharge:No, Pt went to [place] [id number] Discussed medication risks with patient Patient understands medications usage and side effects Patient understands diagnosis Action Plan for management of symptoms/side effects/complications requiring medical attention established and shared with patient/caregiver Was patient discharged on Warfarin? {(Do not delete line; Warfarin documentation is required) No Patients general condition on discharge: was not stable All medical devices (telemetry/IV/etc) unless otherwise ordered, have been removed and stored: N/A --- End of Report --- GEMENT INFORMATION SYSTEMS DIRECTOR * Plan of Care - Marimar León RN - 05/08/2023 6:04 PM CST [facility] Plan of Care Note Assessment: Pain and hallucinations Plan: Tele, CIWA, Psych consult, de-addiction consult. Subjective: I dont want to stay here if there is no treatment planned for me I still hear voices, they are more during the day and less during the nigh. Objective: Assumed cares from [id number]. A&Ox4, Independent in the room. Tele is NSR. At , the pt left the unit as he wanted to leave AMA, was brought back to the unit with the help of security. Hold able order was given to the patient at 1 PM. Pt aware that he is hold able and cannot leave the hospital. Pt ate breakfast and refused lunch. Has been having fluids when provided. Pt slept in the afternoon. VSA in place. CIWA was 3. Call light within reach. Able to make needs known. Was discharged from the unit and sent to [place] [id number]. --- End of Report --- GEMENT INFORMATION SYSTEMS DIRECTOR * Plan of Care - Marimar León RN - 05/08/2023 11:28 AM CST [facility]. Practitioner Notified Note Name of Practitioner notified: French Thompson Time of Practitioner notification: 11:29 AM Reason: Jenny Santos, [id number] Pt wants to leave, wants us to take the PIV out. Can you talk to him?Thanks. Response: E page sent. GEMENT INFORMATION SYSTEMS DIRECTOR * Plan of Care - Sydni Horn RN - 05/08/2023 7:43 AM CST A&Ox4. Tele: SR. VSS on RA. Denies CP, SOB, dizziness, n/v. Pt c/o pain in lower back. Pt states acetaminophen is not effective. Voiding in the urinal. Ambulates SBA. Call light within reach. Assumed care of pt from 2300 to 0730 GEMENT INFORMATION SYSTEMS DIRECTOR * Plan of Care - Declan Cuellar RN - 05/07/2023 11:28 PM CST Pt A&ox4, make needs known. Upto the bathroom with SBA. On CIWA protocol. Pt has been cooperative and pleasant this shift. Valium 2.5 mg given per ciwa protocol with relief. C/o bilateral hip pain rating 4/10. States its bothering him. Tylenol given with no relief, states tylenol don't help. Call light within reach. GEMENT INFORMATION SYSTEMS DIRECTOR * Plan of Care - Declan Cuellar RN - 05/07/2023 8:39 PM CST [facility]. Practitioner Notified Note Name of Practitioner notified: Resident Time of Practitioner notification: 8:39 PM Reason: [id number]; T.Maurizio; pt states he wants his Seroquel. That he is normally on 800mg, states zyprexa don't help him. Advice, tks. Response: Paged -provider came to talk to pt. GEMENT INFORMATION SYSTEMS DIRECTOR * Plan of Care - Declan Cuellar RN - 05/07/2023 5:09 PM CST [facility]. Practitioner Notified Note Name of Practitioner notified: Resident Time of Practitioner notification: 5:10 PM Reason: [id number];K.The; Pt Trop game bakc at 1.02, urine random back positive of 3 drugs. Advice tks. Response: Paged - provider called - jaden molina, monitor for symptoms of chest pain and call provider. GEMENT INFORMATION SYSTEMS DIRECTOR * Plan of Care - Stephen Julien, PharmD - 05/07/2023 9:47 AM CST [facility] Medication History Note *I spoke with a nurse from [facility] ([phone]) about the patient's current medications* I was unable to interview the patient. This medication list was made based on recent pharmacy fill histories per pharmacy databases (). This medication list may not be 100% accurate. Use caution when ordering from this medication list. 1. Source(s) of Medication Information: , [facility] Nurse 2. Pertinent Information: Recent prior to admission medication changes: Medications added: The entire list Medications deleted: I deleted the old FLOOR SUPERVISOR med list and started new Medications changed: None [facility] nurse states that the patient is NOT taking the following medications: Lisinopril 40mg tabs: 1 BID (last filled on 02/23/23 for #180) - ON HOLD per [facility] nurse as of05/02/23 Diclofenac 75mg tabs: 1 BID (last filled on 01/07/23 for #180) - discontinued per [facility] nurse 3. Outpatient Medications Marked as Taking: Outpatient Medications Marked as Taking for the 05/07/23 encounter (Hospital Encounter) Medication Sig Note Last Dose atorvastatin (LIPITOR) 20 MG tablet Take 1 Tablet (20 mg) by mouth daily. 05/07/2023: Last filled on 03/06/23 for #90. Unsure of last dose unsure CALCIUM-VITAMIN D OR Take 1 Tablet by mouth daily. 05/07/2023: No recent fill history found. Unsure of last dose unsure cyclobenzaprine (FLEXERIL) 10 MG tablet Take 1 Tablet (10 mg) by mouth daily at bedtime. 05/07/2023: Last filled on 05/03/23 for #30. Unsure of last dose unsure desonide (DESOWEN) 0.05 % cream Apply topically two times a day. 05/07/2023: Last filled on 11/16/22 for #60. Unsure of last dose unsure escitalopram oxalate (LEXAPRO) 20 MG tablet Take 10mg by mouth daily for 2 weeks then increase to 20mg by mouth daily 05/07/2023: Last filled on 04/19/23 for #30. Unsure of last dose unsure folic acid 1 MG tablet Take 1 Tablet (1 mg) by mouth daily. 05/07/2023: Last filled on 03/14/23 for #30. Unsure of last dose unsure gabapentin (NEURONTIN) 600 MG tablet Take 1 Tablet (600 mg) by mouth three times a day. 05/07/2023: Last filled on 02/18/23 for #270. Unsure of last dose unsure loperamide (IMODIUM) 2 MG capsule Take 1 Capsule (2 mg) by mouth 4 times daily as needed for Diarrhea. 05/07/2023: No recent fill history found. Unsure of last dose unsure metoprolol succinate (TOPROL XL) 100 MG 24 hour release tablet Take 1 Tablet (100 mg) by mouth daily. 05/07/2023: Last filled on 05/06/23 for #90. Unsure of last dose unsure Multiple Vitamin (MULTIVITAMINS OR) Take 1 Tablet by mouth daily. 05/07/2023: Last filled on 03/14/23 for #30. Unsure of last dose unsure omeprazole (PRILOSEC) 20 MG capsule Take 1 Capsule (20 mg) by mouth daily. Take 1 hour before a meal. 05/07/2023: Last filled on 02/04/23 for #90. Unsure of last dose unsure prazosin (MINIPRESS) 2 MG capsule Take 1 Capsule (2 mg) by mouth every evening. 05/07/2023: Last filled on 04/20/23 for #90. Unsure of last dose unsure QUEtiapine (SEROQUEL) 400 MG tablet Take 2 Tablets (800 mg) by mouth daily at bedtime. 05/07/2023: Last filled on 04/30/23 for #60. Unsure of last dose unsure rOPINIRole (REQUIP) 2 MG tablet Take 1 Tablet (2 mg) by mouth two times a day. 05/07/2023: Last filled on 04/08/23 for #180. Unsure of last dose unsure tamsulosin 0.4 MG CAPS capsule Take 1 Capsule (0.4 mg) by mouth daily. 05/07/2023: Last filled on 04/08/23 for #90. Unsure of last dose unsure testosterone cypionate (DEPO-TESTOSTERONE) 200 MG/ML injection Inject 1 mL (200 mg) intramuscularlyevery 14 days. 05/07/2023: Last filled on 03/31/23 for 84 day supply. Unsure of last dose unsure thiamine 100 MG tablet Take 1 Tablet (100 mg) by mouth daily. 05/07/2023: No recent fill history found. Unsure of last dose unsure traZODone (DESYREL) 100 MG tablet Take 4 Tablets (400 mg) by mouth daily at bedtime. 05/07/2023: Lastfilled on 04/08/23 for #120. Unsure of last dose unsure valACYclovir (VALTREX) 1 g tablet Take 1 Tablet (1,000 mg) by mouth daily. 05/07/2023: Last filled on12/14/22 for #90. Unsure of last dose unsure Thank you. This list represents the best possible medication history available at the time of note completion and should be used as a guide in reconciling home medications for hospital use. ? GEMENT INFORMATION SYSTEMS DIRECTOR * Triage Assessment Note - Dane Calloway, RN - 05/07/2023 3:44 AM MANAGEMENT INFORMATION SYSTEMS DIRECTOR Patient presents [facility] [employer] for a legal blood draw but had a syncopal episode upon entering the department. Patient states they took x2 Xanax and Diclofenac at home then drove their vehicle. Patient denies alcohol tonight. Patient denies hitting their head or LOC . GEMENT INFORMATION SYSTEMS DIRECTOR documented in this encounter Admitting Diagnoses Diagnosis USAMA (acute kidney injury) (HRC) Acute kidney failure, unspecified documented in this encounter Administered Medications Inactive Administered Medications - up to 3 most recent administrations Medication Order MAR Action Action Date Dose Rate Site acetaminophen (TYLENOL) tablet 650 mg 650 mg, Oral, Q6H PRN, Pain/Fever, Initially give acetaminophen for patient with mild pain., Starting on Wed05/07/23 at 1114, Until 05/08/23 at 1831, Initially give acetaminophen for patient with mild pain. Acetaminophen may be given WITH other pain medications as adjunct pain relief. Do not give two acetaminophen containing medications within 4 hours of each other. Given 05/07/2023 10:25 PM MANAGEMENT INFORMATION SYSTEMS DIRECTOR 650 mg aspirin chewable tablet 324 mg 324 mg, Oral, ONCE, On Wed05/07/23 at 0530, For 1 dose Given 05/07/2023 5:15 AM MANAGEMENT INFORMATION SYSTEMS DIRECTOR 324 mg aspirin chewable tablet 81 mg 81 mg, Oral, DAILY, First dose on Wed05/08/23 at 0800, Until Discontinued Given 05/08/2023 8:27 AM MANAGEMENT INFORMATION SYSTEMS DIRECTOR 81 mg atorvastatin (LIPITOR) tablet 40 mg 40 mg, Oral, DAILY - 1999, First dose (after last modification) on Wed05/07/23 at 2000, Until Discontinued Given 05/07/2023 8:30 PM MANAGEMENT INFORMATION SYSTEMS DIRECTOR 40 mg bisacodyl (DULCOLAX) rectal suppository 10 mg 10 mg, Rectal, DAILY PRN, Constipation, No stool in the last 3 days, Starting on Wed05/07/23 at 1114, Until Wed05/08/23 at 1831, Cumulative bowel medication orders. Administer based on [...] platelet count is 50 k/cmm or less. buPROPion (WELLBUTRIN XL) XL 24 hour release tablet 150 mg 150 mg, Oral, DAILY, First dose on Wed05/07/23 at 1130, Until Discontinued, Tablet/Capsule should be swallowed whole. Given 05/07/2023 12:15 PM MANAGEMENT INFORMATION SYSTEMS DIRECTOR 150 mg cloNIDine (CATAPRES) tablet 0.1 mg 0.1 mg, Oral, Q4H PRN, Other, Give for SBP greater than 160 and/or DBP greater than 110. DO NOT GIVE if HR less than 70., Starting on Wed05/07/23 at 1443, Until 05/08/23 at 1831, Call practitioner for additional orders if elevated SBP or DBP and HR less than 70., Indications: Alcohol withdrawal associated hypertension diazePAM (VALIUM) injection 2.5-10 mg 2.5-10 mg, Intravenous, Q30MIN PRN, Alcohol Withdrawal Symptoms, Starting on Wed05/07/23 at 1444, Until 05/08/23 at 1831, If patient has scheduled diazepam, use PRN [...] the scheduled time., Indications: alcohol withdrawal Given 05/07/2023 9:07 PM MANAGEMENT INFORMATION SYSTEMS DIRECTOR 2.5 mg diazePAM (VALIUM) tablet 2.5-10 mg 2.5-10 mg, Oral, Q30MIN PRN, Alcohol Withdrawal Symptoms, Starting on Wed05/07/23 at 1444, Until 05/08/23 at 1831, If patient has scheduled diazepam, use PRN [...] before the scheduled time., Indications: alcohol withdrawal folic acid tablet 1 mg 1 mg, Oral, DAILY, First dose on Wed05/07/23 at 1515, Until Discontinued Given 05/08/2023 8:25 AM MANAGEMENT INFORMATION SYSTEMS DIRECTOR 1 mg Given 05/07/2023 3:02 PM MANAGEMENT INFORMATION SYSTEMS DIRECTOR 1 mg gabapentin (NEURONTIN) capsule 600 mg 600 mg, Oral, TID, First dose on Wed05/07/23 at 1400, Until Discontinued, Swallow whole. Given 05/08/2023 8:[address] 600 mg Given 05/07/2023 8:30 PM MANAGEMENT INFORMATION SYSTEMS DIRECTOR 600 mg Given 05/07/2023 3:02 PM MANAGEMENT INFORMATION SYSTEMS DIRECTOR 600 mg heparin 1000 UNIT/ML injection 4,000 Units 4,000 Units, Intravenous, ONCE, On Wed05/07/23 at 0730, For 1 dose, INITIAL LOADING DOSE ORDER Weight 100-109 kg. Initial loading dose 4000 units x 1. Start infusion after loading dose given. Lab recheck: Anti-Xa (select: Unfractionated Heparin (e.g. heparin infusion)) should be ordered 6 hours after initiation and every rate change, follow Anti-Xa (Heparin) Lab Protocol order for further rechecks., Indications: Acute Coronary Syndrome Given 05/07/2023 7:38 AM MANAGEMENT INFORMATION SYSTEMS DIRECTOR 4,000 Units heparin 25,000 Units in 0.45% sodium chloride 250 mL (100 Units/mL) infusion 0-3,500 Units/hr (0-35 mL/hr), Intravenous, TITRATE, Starting on Wed05/07/23 at 0730, Until Wed05/07/23 at 1448, Weight 100-109 kg. Initial rate 1000 Units/hr. Start infusion after initial loading dose if initial loading dose is ordered. Adjust infusion rate based on subsequent Anti-Xa (Heparin level) levels. Target Anti-Xa 0.3-0.7 Units/mL Anti-Xa (Heparin level) 0.17 or less: Give 4000 Unit bolus and increase infusion rate +400 units/hr Anti-Xa (Heparin level) 0.18-0.29: Give 2000 Unit bolus and increase infusion rate +200 units/hr Anti-Xa (Heparin level) 0.3-0.7: NO CHANGE Anti-Xa (Heparin level) 0.71-1.01: Reduce rate by -200 units/hr Anti-Xa (Heparin level)1.02 or greater: HOLD infusion 60 minutes and reduce rate by -300 units/hr when resuming infusion. For Unexpected Anti-Xa results - see Nursing Communication Lab recheck: Anti-Xa (select: Unfractionated Heparin (e.g. heparin infusion)) should be ordered 6 hours after initiation and every rate change, follow Anti-Xa (Heparin) Lab Protocol order for further rechecks. HIGH ALERT medication, Indications: Acute Coronary Syndrome Rate/Dose Verify 05/07/2023 11:15 AM MANAGEMENT INFORMATION SYSTEMS DIRECTOR 1,000 Units/hr 10 mL/hr Started 05/07/2023 7:40 AM MANAGEMENT INFORMATION SYSTEMS DIRECTOR 1,000 Units/hr 10 mL/hr lactated ringers IV bolus 1,000 mL 1,000 mL, Intravenous, Administer over 1 Hours, ONCE, On Wed05/07/23 at 0400, For 1 dose Started 05/07/2023 4:25 AM MANAGEMENT INFORMATION SYSTEMS DIRECTOR 1,000 mL lactated ringers IV bolus 1,000 mL 1,000 mL, Intravenous, Administer over 1 Hours, ONCE, On Wed05/07/23 at 0530, For 1 dose Started 05/07/2023 5:06 AM MANAGEMENT INFORMATION SYSTEMS DIRECTOR 1,000 mL lidocaine (ASPERCREAM) 4 % patch 1 Patch 1 Patch, Transdermal, DAILY, First dose on Wed05/07/23 at 1215, Until Discontinued, Apply patch to hip. Patch may remain in place for up to 12 hours in any 24 hour period, i.e. patches placed at 0800 should be removed at 2000. May cut patch to appropriate size. Patch Applied 05/08/2023 8:25 AM MANAGEMENT INFORMATION SYSTEMS DIRECTOR 1 Patch Back Patch Applied 05/07/2023 12:15 PM MANAGEMENT INFORMATION SYSTEMS DIRECTOR 1 Patch Back melatonin tablet 6 mg 6 mg, Oral, HS PRN, Sedation, Starting on Wed05/07/23 at 1114, Until 05/08/23 at 1831 Given 05/07/2023 8:30 PM MANAGEMENT INFORMATION SYSTEMS DIRECTOR 6 m g methocarbamol (ROBAXIN) tablet 500 mg 500 mg, Oral, TID PRN, Muscle Spasms, Starting on Wed05/07/23 at 1942, Until 05/08/23 at 1831 Given 05/08/2023 8:28 AM MANAGEMENT INFORMATION SYSTEMS DIRECTOR 500 mg Given 05/07/2023 8:30 PM MANAGEMENT INFORMATION SYSTEMS DIRECTOR 500 mg metoclopramide (REGLAN) injection 5 mg 5 mg, Intravenous, Q6H PRN, Nausea, Vomiting, Starting on Wed05/07/23 at 1114, Until 05/08/23 at 1831, Give 1st line medications, then 2nd line, then 3rd line. Progress to next line if medication is ineffective after 15 minutes, or has been previously ineffective, or if a medication for a line is not ordered. May use medication from any line if patient preference indicates. If third line agent is ineffective, call Practitioner. If unable to give IV medications contact Practitioner. Aromatherapy may be used at any time as adjunct therapy. 1st Line - ondansetron 2nd Line -prochlorperazine 3rd Line - metoclopramide metoprolol succinate (TOPROL XL) extended release tablet 12.5 mg 12.5 mg, Oral, DAILY, First dose on Wed05/07/23 at 1200, Until Discontinued, Tablet may be split in half, but not crushed. Given 05/08/2023 8:25 AM MANAGEMENT INFORMATION SYSTEMS DIRECTOR 12.5 mg Given 05/07/2023 12:15 PM MANAGEMENT INFORMATION SYSTEMS DIRECTOR 12.5 mg metoprolol succinate (TOPROL XL) extended release tablet 12.5 mg 12.5 mg, Oral, ONCE, On 05/08/23 at 1000, For 1 dose, Tablet may be split in half, but not crushed. Given 05/08/2023 12:06 PM MANAGEMENT INFORMATION SYSTEMS DIRECTOR 12.5 mg metoprolol succinate (TOPROL XL) extended release tablet 25 mg 25 mg, Oral, DAILY, First dose (after last modification) on Wed05/09/23 at 0800, Until Discontinued, Tablet may be split in half, but not crushed. OLANZapine (ZyPREXA) 10 mg in sterile water 2 mL injection 10 mg, Intravenous, Q4H PRN, Agitation, Starting on Wed05/07/23 at 1423, Add 2.1 mL of sterile water for injection to 10 mg vial of olanzapine for a final concentration of 5 mg/mL Max of 40mg/24hrs OLANZapine (ZyPREXA) tablet 10 mg 10 mg, Oral, Q4H PRN, Agitation, Starting on Wed05/07/23 at 1423, Until 05/08/23 at 1831, Max 10mg/24hrs Given 05/08/2023 12:06 PM MANAGEMENT INFORMATION SYSTEMS DIRECTOR 10 mg ondansetron (ZOFRAN) injection 4 mg 4 mg, Intravenous, Q8H PRN, Nausea, Vomiting, Starting on Wed05/07/23 at 1114, Until 05/08/23 at 1831, Give 1st line medications, then 2nd line, then 3rd line. Progress to next line if medication is ineffective after 15 minutes, or has been previously ineffective, or if a medication for a line is not ordered. May use medication from any line if patient preference indicates. If third line agent is ineffective, call Practitioner. If unable to give IV medications contact Practitioner. Aromatherapy may be used at any time as adjunct therapy. 1st Line - ondansetron 2nd Line -prochlorperazine 3rd Line - metoclopramide oxyCODONE (ROXICODONE) immediate release tablet 5 mg 5 mg, Oral, ONCE, On Wed05/07/23 at 1230, For 1 dose Given 05/07/2023 12:15 PM MANAGEMENT INFORMATION SYSTEMS DIRECTOR [address] (PROTONIX) tablet 40 mg 40 mg, Oral, DAILY AT 0600, First dose on Wed05/08/23 at 0600, Until Discontinued Given 05/08/2023 6:47 AM MANAGEMENT INFORMATION SYSTEMS DIRECTOR 40 mg polyethylene glycol (MIRALAX) oral powder 17 g 17 g, Oral, DAILY PRN, Constipation, No stool in the last 2 days, Starting on Wed05/07/23 at 1114, Until Wed05/08/23 at 1831, Cumulative bowel medication orders. Administer based on [...] day, begin regimen again until patient stools. potassium bicarbonate-citric acid (EFFER-K) effervescent tablet 40 mEq 40 mEq, Oral, ONCE, On Wed05/07/23 at 0530, For 1 dose, Dissolve tablets completely in 3 to 4 ounces of cold/ice water or juice. May further dilute if GI adverse effects occur. May take 3-4 minutes to completely dissolve. Given 05/07/2023 5:19 AM MANAGEMENT INFORMATION SYSTEMS DIRECTOR 40 mEq prochlorperazine (COMPAZINE) injection 10 mg 10 mg, Intravenous, Q6H PRN, Nausea, Vomiting, Starting on Wed05/07/23 at 1114, Until 05/08/23 at 1831, Give 1st line medications, then 2nd line, then 3rd line. Progress to next line if medication is ineffective after 15 minutes, or has been previously ineffective, or if a medication for a line is not ordered. May use medication from any line if patient preference indicates. If third line agent is ineffective, call Practitioner. If unable to give IV medications contact Practitioner. Aromatherapy may be used at any time as adjunct therapy. 1st Line - ondansetron 2nd Line -prochlorperazine 3rd Line - metoclopramide QUEtiapine (SEROquel) tablet 200 mg 200 mg, Oral, HS, First dose on 05/08/23 at 2100, Until Discontinued senna (SENOKOT) tablet 2 Tablet 2 Tablet, Oral, BID PRN, Constipation, No stool in the last day, Starting on Wed05/07/23 at 1114, Until 05/08/23 at 1831, Cumulative bowel medication orders. Administer based on [...] again until patient stools. thiamine (VITAMIN B-1) 400 mg in sodium chloride 0.9 % 50 mL IVPB 400 mg, Intravenous, Administer over 30 Minutes, Q8H, First dose on Wed05/07/23 at 1445, For 9 doses Started 05/08/2023 6:47 AM MANAGEMENT INFORMATION SYSTEMS DIRECTOR 400 mg Started 05/07/2023 10:22 PM MANAGEMENT INFORMATION SYSTEMS DIRECTOR 400 mg Started 05/07/2023 4:04 PM MANAGEMENT INFORMATION SYSTEMS DIRECTOR 400 mg thiamine (VITAMIN B-1) tablet 200 mg 200 mg, Oral, DAILY, First dose on 05/08/23 at 1500, Until Discontinued documented in this encounter Active and Recently Administered Medications Times are shown in MANAGEMENT INFORMATION SYSTEMS DIRECTOR. Scheduled Medication Order 05/06/2023 05/07/2023 05/08/2023 aspirin chewable tablet 324 mg (COMPLETED) 324 mg, Oral, ONCE, On Wed05/07/23 at 0530, For 1 dose 0515 (Given - Provider: Dane Calloway RN) aspirin chewable tablet 81 mg 81 mg, Oral, DAILY, First dose on 05/08/23 at 0800, Until Discontinued 0827 (Given - Provid er: Marimar León RN) atorvastatin (LIPITOR) tablet 40 mg 40 mg, Oral, DAILY - 1999, First dose (after last modification) on Wed05/07/23 at 2000, Until Discontinued 2030 (Given - Provider: Declan Cuellar RN) buPROPion (WELLBUTRIN XL) XL 24 hour release tablet 150 mg (CANCELED) 150 mg, Oral, DAILY, First dose on Wed05/07/23 at 1130, Until Discontinued, Tablet/Capsule should be swallowed whole. 1215 (Given - Provider: Marimar León RN) folic acid tablet 1 mg 1 mg, Oral, DAILY, First dose on Wed05/07/23 at 1515, Until Discontinued 1502 (Given - Provider: Marimar León RN) 0825 (Given - Provider: Marimar León RN) gabapentin (NEURONTIN) capsule 600 mg 600 mg, Oral, TID, First dose on Wed05/07/23 at 1400, Until Discontinued, Swallow whole. 1502 (Given - Provider: Marimar León RN - Comment: pt refused earlier)2030 (Given - Provider: Declan Cuellar RN) 0825 (Given - Provider: Marimar León RN)1649 (Not Given - Provider: Marimar León RN - Reason: Patient/family refused - Comment: pt refused earlier) heparin 1000 UNIT/ML injection 4,000 Units (COMPLETED) 4,000 Units, Intravenous, ONCE, On Wed05/07/23 at 0730, For 1 dose, INITIAL LOADING DOSE ORDER Weight 100-109 kg. Initial loading dose 4000 units x 1. Start infusion after loading dose given. Lab recheck: Anti-Xa (select: Unfractionated Heparin (e.g. heparin infusion)) should be ordered 6 hours after initiation and every rate change, follow Anti-Xa (Heparin) Lab Protocol order for further rechecks., Indications: Acute Coronary Syndrome 0738 (Given - Provider: Hodan Baker RN) lactated ringers IV bolus 1,000 mL (COMPLETED) 1,000 mL, Intravenous, Administer over 1 Hours, ONCE, On Wed05/07/23 at 0400, For 1 dose 0425 (Started - Provider: Dane Calloway RN)0505 (Infused - Provider: Dane Calloway RN) lactated ringers IV bolus 1,000 mL (COMPLETED) 1,000 mL, Intravenous, Administer over 1 Hours, ONCE, On Wed05/07/23 at 0530, For 1 dose 0506 (Started - Provider: Dane Calloway RN)0623 (Infused - Provider: Dane Calloway RN) lidocaine (ASPERCREAM) 4 % patch 1 Patch 1 Patch, Transdermal, DAILY, First dose on Wed05/07/23 at 1215, Until Discontinued, Apply patch to hip. Patch may remain in place for up to 12 hours in any 24 hour period, i.e. patches placed at 0800 should be removed at 2000. May cut patch to appropriate size. 1215 (Patch Applied - Provider: Marimar León RN) 0003 (Patch Removed - Provider: Sydni Horn RN - Comment: Patch not found on lower back; appears to have fallen off)08 (Patch Applied - Provider: Marimar León RN)2024 (Due: Patch Removed - Provider: Marimar León RN) lisinopril (ZESTRIL) tablet 10 mg 10 mg, Oral, DAILY, First dose on Wed05/07/23 at 1130, Until Discontinued, On hold since Wed05/07/2023 at 1114 until manually unheld 1114 (Held by provider in Manage Orders - Provider: Jessica Braswell MD - Reason: Per Practitioner: Acute Kidney Injury)1130 (Automatically Held) 0800 (Automatically Held)1831 (Unheld by provider in Manage Orders - Provider: Inpatient Template [facility]) metoprolol succinate (TOPROL XL) extended release tablet 12.5 mg (CANCELED) 12.5 mg, Oral, DAILY, First dose on Wed05/07/23 at 1200, Until Discontinued, Tablet may be split in half, but not crushed. 1215 (Given - Provider: Marimar León RN) 0825 (Given - Provider: Marimar León RN) metoprolol succinate (TOPROL XL) extended release tablet 12.5 mg (COMPLETED) 12.5 mg, Oral, ONCE, On Wed05/08/23 at 1000, For 1 dose, Tablet may be split in half, but not crushed. 1206 (Given - Provid er: Marimar León RN - Comment: refused earlier) metoprolol succinate (TOPROL XL) extended release tablet 25 mg 25 mg, Oral, DAILY, First dose (after last modification) on Wed05/09/23 at 0800, Until Discontinued, Tablet may be split in half, but not crushed. oxyCODONE (ROXICODONE) immediate release tablet 5 mg (COMPLETED) 5 mg, Oral, ONCE, On Wed05/07/23 at 1230, For 1 dose 1215 (Given - Provider: Marimar León RN) pantoprazole DR (PROTONIX) tablet 40 mg 40 mg, Oral, DAILY AT 0600, First dose on Wed05/08/23 at 0600, Until Discontinued 0647 (Given - Provid er: Sydni Horn RN) potassium bicarbonate-citric acid (EFFER-K) effervescent tablet 40 mEq (COMPLETED) 40 mEq, Oral, ONCE, On Wed05/07/23 at 0530, For 1 dose, Dissolve tablets completely in 3 to 4 ounces of cold/ice water or juice. May further dilute if GI adverse effects occur. May take 3-4 minutes to completely dissolve. 0519 (Given - Provider: Dane Calloway RN) QUEtiapine (SEROquel) tablet 200 mg 200 mg, Oral, HS, First dose on Wed05/08/23 at 2100, Until Discontinued thiamine (VITAMIN B-1) 400 mg in sodium chloride 0.9 % 50 mL IVPB (CANCELED)(Linked Group 1) 400 mg, Intravenous, Administer over 30 Minutes, Q8H, First dose on Wed05/07/23 at 1445, For 9 doses 1604 (Started - Provider: Declan Cuellar RN)1640 (Infused - Provider: Declan Cuellar RN)2222 (Started - Provider: Declan Cuellar RN)2335 (Infused - Provider: Sydni Horn RN) 0647 (Started - Provider: Sydni Horn RN)0743 (Infused - Provider: Marimar León RN)1446 (Not Given - Provider: Marimar León RN - Reason: Order discontinued) thiamine (VITAMIN B-1) tablet 200 mg 200 mg, Oral, DAILY, First dose on Wed05/08/23 at 1500, Until Discontinued 1649 (Not Given - Provider: Marimar León RN - Reason: Patient/family refused - Comment: pt refused earlier) traZODone (DESYREL) tablet 200 mg 200 mg, Oral, HS, First dose on Wed05/07/23 at 2100, Until Discontinued, Indications: Sleep, On hold since Wed05/07/2023 at 1426 until manually unheld 1426 (Held by provider in Manage Orders - Provider: Garth Patino MD - Reason: Other (Enter Reason in Comment Area))2100 (Automatically Held - Provider: Garth Patino MD) 1831 (Unheld by provider in Manage Orders - Provider: Inpatient Template [facility]) Continuous Medication Order 05/06/2023 05/07/2023 05/08/2023 heparin 25,000 Units in 0.45% sodium chloride 250 mL (100 Units/mL) infusion (CANCELED) 0-3,500 Units/hr (0-35 mL/hr), Intravenous, TITRATE, Starting on Wed05/07/23 at 0730, Until Wed05/07/23 at 1448, Weight 100-109 kg. Initial rate 1000 Units/hr. Start infusion after initial loading dose if initial loading dose is ordered. Adjust infusion rate based on subsequent Anti-Xa (Heparin level) levels. Target Anti-Xa 0.3-0.7 Units/mL Anti-Xa (Heparin level) 0.17 or less: Give 4000 Unit bolus and increase infusion rate +400 units/hr Anti-Xa (Heparin level) 0.18-0.29: Give 2000 Unit bolus and increase infusion rate +200 units/hr Anti-Xa (Heparin level) 0.3-0.7: NO CHANGE Anti-Xa (Heparin level) 0.71-1.01: Reduce rate by -200 units/hr Anti-Xa (Heparin level)1.02 or greater: HOLD infusion 60 minutes and reduce rate by -300 units/hr when resuming infusion. For Unexpected Anti-Xa results - see Nursing Communication Lab recheck: Anti-Xa (select: Unfractionated Heparin (e.g. heparin infusion)) should be ordered 6 hours after initiation and every rate change, follow Anti-Xa (Heparin) Lab Protocol order for further rechecks. HIGH ALERT medication, Indications: Acute Coronary Syndrome 0740 (Started - Provider: Hodan Baker RN)1115 (Rate/Dose Verify - Provider: Marimar León RN - Comment: pt just admitted to the unit and came in from the ED with 1000 units/ hr)1501 (Stopped - Provider: Marimar León RN) PRN Medication Order 05/06/2023 05/07/2023 05/08/2023 acetaminophen (TYLENOL) tablet 650 mg 650 mg, Oral, Q6H PRN, Pain/Fever, Initially give acetaminophen for patient with mild pain., Starting on Wed05/07/23 at 1114, Until 05/08/23 at 1831, Initially give acetaminophen for patient with mild pain. Acetaminophen may be given WITH other pain medications as adjunct pain relief. Do not give two acetaminophen containing medications within 4 hours of each other. 2225 (Given - Provider: Declan Cuellar RN) benzocaine-menthol (Chloraseptic) lozenge 1 Lozenge 1 Lozenge, Oral, Q2H PRN, Throat Pain, Cough, Starting on Wed05/07/23 at 1114, Until 05/08/23 at 1831 bisacodyl (DULCOLAX) rectal suppository 10 mg(Linked Group 2) 10 mg, Rectal, DAILY PRN, Constipation, No stool in the last 3 days, Starting on Wed05/07/23 at 1114, Until 05/08/23 at 1831, Cumulative bowel medication orders. Administer based on [...] Q4H PRN, Heartburn, Upset Stomach, Starting on Wed05/07/23 at 1114, Until 05/08/23 at 1831, For indigestion/upset stomach cloNIDine (CATAPRES) tablet 0.1 mg 0.1 mg, Oral, Q4H PRN, Other, Give for SBP greater than 160 and/or DBP greater than 110. DO NOT GIVE if HR less than 70., Starting on Wed05/07/23 at 1443, Until 05/08/23 at 1831, Call practitioner for additional orders if elevated SBP or DBP and HR less than 70., Indications: Alcohol withdrawal associated hypertension diazePAM (VALIUM) injection 2.5-10 mg(Linked Group 3) 2.5-10 mg, Intravenous, Q30MIN PRN, Alcohol Withdrawal Symptoms, Starting on Wed05/07/23 at 1444, Until 05/08/23 at 1831, If patient has scheduled diazepam, use PRN [...] before the scheduled time., Indications: alcohol withdrawal 2106 (Given - Provider: Declan Cuellar RN) diazePAM (VALIUM) tablet 2.5-10 mg(Linked Group 3) 2.5-10 mg, Oral, Q30MIN PRN, Alcohol Withdrawal Symptoms, Starting on Wed05/07/23 at 1444, Until 05/08/23 at 1831, If patient has scheduled diazepam, use PRN [...] before the scheduled time., Indications: alcohol withdrawal 2106 (See Alternative - Provider: Declan Cuellar RN) melatonin tablet 6 mg 6 mg, Oral, HS PRN, Sedation, Starting on Wed05/07/23 at 1114, Until 05/08/23 at 1831 2030 (Given - Provider: Declan Cuellar RN) methocarbamol (ROBAXIN) tablet 500 mg 500 mg, Oral, TID PRN, Muscle Spasms, Starting on Wed05/07/23 at 1942, Until 05/08/23 at 1831 2030 (Given - Provider: Declan Cuellar RN) 0828 (Given - Provider: Marimar León RN) metoclopramide (REGLAN) injection 5 mg(Linked Group 4) 5 mg, Intravenous, Q6H PRN, Nausea, Vomiting, Starting on Wed05/07/23 at 1114, Until 05/08/23 at 1831, Give 1st line medications, then 2nd line, then 3rd line. Progress to next line if medication is ineffective after 15 minutes, or has been previously ineffective, or if a medication for a line is not ordered. May use medication from any line if patient preference indicates. If third line agent is ineffective, call Practitioner. If unable to give IV medications contact Practitioner. Aromatherapy may be used at any time as adjunct therapy. 1st Line - ondansetron 2nd Line -prochlorperazine 3rd Line - metoclopramide OLANZapine (ZyPREXA) 10 mg in sterile water 2 mL injection(Linked Group 5) 10 mg, Intravenous, Q4H PRN, Agitation, Starting on Wed05/07/23 at 1423, Add 2.1 mL of sterile water for injection to 10 mg vial of olanzapine for a final concentration of 5 mg/mL Max of 40mg/24hrs 1206 (See Alternativ e - Provider: Marimar León RN) OLANZapine (ZyPREXA) tablet 10 mg(Linked Group 5) 10 mg, Oral, Q4H PRN, Agitation, Starting on Wed05/07/23 at 1423, Until 05/08/23 at 1831, Max 10mg/24hrs 1206 (Given - Provid er: Marimar León RN) ondansetron (ZOFRAN) injection 4 mg(Linked Group 4) 4 mg, Intravenous, Q8H PRN, Nausea, Vomiting, Starting on Wed05/07/23 at 1114, Until 05/08/23 at 1831, Give 1st line medications, then 2nd line, then 3rd line. Progress to next line if medication is ineffective after 15 minutes, or has been previously ineffective, or if a medication for a line is not ordered. May use medication from any line if patient preference indicates. If third line agent is ineffective, call Practitioner. If unable to give IV medications contact Practitioner. Aromatherapy may be used at any time as adjunct therapy. 1st Line - ondansetron 2nd Line -prochlorperazine 3rd Line - metoclopramide polyethylene glycol (MIRALAX) oral powder 17 g(Linked Group 2) 17 g, Oral, DAILY PRN, Constipation, No stool in the last 2 days, Starting on Wed05/07/23 at 1114, Until 05/08/23 at 1831, Cumulative bowel medication orders. Administer based on [...] day, begin regimen again until patient stools. prochlorperazine (COMPAZINE) injection 10 mg(Linked Group 4) 10 mg, Intravenous, Q6H PRN, Nausea, Vomiting, Starting on Wed05/07/23 at 1114, Until 05/08/23 at 1831, Give 1st line medications, then 2nd line, then 3rd line. Progress to next line if medication is ineffective after 15 minutes, or has been previously ineffective, or if a medication for a line is not ordered. May use medication from any line if patient preference indicates. If third line agent is ineffective, call Practitioner. If unable to give IV medications contact Practitioner. Aromatherapy may be used at any time as adjunct therapy. 1st Line - ondansetron 2nd Line -prochlorperazine 3rd Line - metoclopramide senna (SENOKOT) tablet 2 Tablet(Linked Group 2) 2 Tablet, Oral, BID PRN, Constipation, No stool in the last day, Starting on Wed05/07/23 at 1114, Until 05/08/23 at 1831, Cumulative bowel medication orders. Administer based on [...] patient stools. Linked Groups Order Group 1: thiamine (VITAMIN B-1) 400 mg in sodium chloride 0.9 % 50 mL IVPB (CANCELED)Jump to med 400 mg, Intravenous, Administer over 30 Minutes, Q8H, First dose on Wed05/07/23 at 1445, For 9 doses Followed by thiamine (VITAMIN B-1) 200 mg in sodium chloride 0.9 % 50 mL IVPB (CANCELED) 200 mg, Intravenous, Administer over 30 Minutes, Q24H, First dose on Wed05/10/23 at 1400, For 5 doses Followed by thiamine (VITAMIN B-1) tablet 100 mg (CANCELED) 100 mg, Oral, DAILY, First dose on 05/15/23 at 1400, Until Discontinued Group 2: senna (SENOKOT) tablet 2 TabletJump to med 2 Tablet, Oral, BID PRN, Constipation, No stool in the last day, Starting on Wed05/07/23 at 1114, Until 05/08/23 at 1831, Cumulative bowel medication orders. Administer based on [...] in the last 2 days, Starting on Wed05/07/23 at 1114, Until 05/08/23 at 1831, Cumulative bowel medication orders. Administer based on [...] in the last 3 days, Starting on Wed05/07/23 at 1114, Until 05/08/23 at 1831, Cumulative bowel medication orders. Administer based on [...] count is 50 k/cmm or less. Group 3: diazePAM (VALIUM) tablet 2.5-10 mgJump to med 2.5-10 mg, Oral, Q30MIN PRN, Alcohol Withdrawal Symptoms, Starting on Wed05/07/23 at 1444, Until 05/08/23 at 1831, If patient has scheduled diazepam, use PRN [...] alcohol withdrawal Or diazePAM (VALIUM) injection 2.5-10 mgJump to med 2.5-10 mg, Intravenous, Q30MIN PRN, Alcohol Withdrawal Symptoms, Starting on Wed05/07/23 at 1444, Until 05/08/23 at 1831, If patient has scheduled diazepam, use PRN [...] the scheduled time., Indications: alcohol withdrawal Group 4: ondansetron (ZOFRAN) injection 4 mgJump to med 4 mg, Intravenous, Q8H PRN, Nausea, Vomiting, Starting on Wed05/07/23 at 1114, Until 05/08/23 at 1831, Give 1st line medications, then 2nd line, then 3rd line. Progress to next line if medication is ineffective after 15 minutes, or has been previously ineffective, or if a medication for a line is not ordered. May use medication from any line if patient preference indicates. If third line agent is ineffective, call Practitioner. If unable to give IV medications contact Practitioner. Aromatherapy may be used at any time as adjunct therapy. 1st Line - ondansetron 2nd Line -prochlorperazine 3rd Line - metoclopramide And prochlorperazine (COMPAZINE) injection 10 mgJump to med 10 mg, Intravenous, Q6H PRN, Nausea, Vomiting, Starting on Wed05/07/23 at 1114, Until 05/08/23 at 1831, Give 1st line medications, then 2nd line, then 3rd line. Progress to next line if medication is ineffective after 15 minutes, or has been previously ineffective, or if a medication for a line is not ordered. May use medication from any line if patient preference indicates. If third line agent is ineffective, call Practitioner. If unable to give IV medications contact Practitioner. Aromatherapy may be used at any time as adjunct therapy. 1st Line - ondansetron 2nd Line -prochlorperazine 3rd Line - metoclopramide And metoclopramide (REGLAN) injection 5 mgJump to med 5 mg, Intravenous, Q6H PRN, Nausea, Vomiting, Starting on Wed05/07/23 at 1114, Until 05/08/23 at 1831, Give 1st line medications, then 2nd line, then 3rd line. Progress to next line if medication is ineffective after 15 minutes, or has been previously ineffective, or if a medication for a line is not ordered. May use medication from any line if patient preference indicates. If third line agent is ineffective, call Practitioner. If unable to give IV medications contact Practitioner. Aromatherapy may be used at any time as adjunct therapy. 1st Line - ondansetron 2nd Line -prochlorperazine 3rd Line - metoclopramide And Aromatherapy - Q-easy (CANCELED) Routine, Q8H PRN, Starting on Wed05/07/23 at 1114, Until Specified, Aromatherapy may be used at any time as adjunct therapy as needed for Nausea/Vomiting. Group 5: OLANZapine (ZyPREXA) tablet 10 mgJump to med 10 mg, Oral, Q4H PRN, Agitation, Starting on Wed05/07/23 at 1423, Until 05/08/23 at 1831, Max 10mg/24hrs Or OLANZapine (ZyPREXA) 10 mg in sterile water 2 mL injectionJump to med 10 mg, Intravenous, Q4H PRN, Agitation, Starting on Wed05/07/23 at 1423, Add 2.1 mL of sterile water for injection to 10 mg vial of olanzapine for a final concentration of 5 mg/mL Max of 40mg/24hrs documented in this encounter Additional Health Concerns Infection Onset Date Last Indicated Resolved Time R/O COVID19 05/07/2023 05/07/2023 05/07/2023 10:3 4 AM MANAGEMENT INFORMATION SYSTEMS DIRECTOR documented as of this encounter Care Teams Telephone Clerk Relationship Specialty Start Date End Date Briana Vazquez PA-C [id number] [place] [address] PCP - General Physician Sourcer 11/29/19 documented as of this encounter
--- OUTSIDE RECORDS SUMMARY | 2023-07-18 17:01 | XMS_ITS | Clinical Summary ---
Author Name Unknown Organization [facility] Address [address], [place] [address] Care Team Providers Care Director Telehealth Name Role Phone Briana Vazquez PA-C Primary Care Provider [phone] Source Comments You are receiving this document as you are listed as the primary care provider,follow-up provider, or the patient has been referred to you for consultation.This is in compliance with the Medicare and[facility] EHR Incentive Program,which states Providers who transition their patient to another setting of careor provider of care or refers their patient to another provider of care shouldprovide summary care record for each transition of care or referral. [facility] Allergies No known active allergies Medications Medication Sig Dispensed Refills Start Date End Date Status amLODIPine (NORVASC) 5 MG tablet Take 1 Tablet (5 mg) by mouth daily. 90 Tablet 3 05/10/2023 05/09/2024 Active acetaminophen (TYLENOL) 325 MG tablet Take 2 Tablets (650 mg) by mouth every 6 hours as needed. 05/10/2023 Active folic acid 1 MG tablet Take 1 Tablet (1 mg) by mouth daily. 30 Tablet 05/10/2023 Active lidocaine (XYLOCAINE) 5 % ointment Apply topically to affected area(s) three times daily as needed. 35.44 g 05/10/2023 Active omeprazole (PRILOSEC) 20 MG capsule Take 1 hour before a meal. 05/10/2023 Active QUEtiapine (SEROQUEL) 400 MG tabletIndications: Bipolar Mood Disorder Take 2 Tablets (800 mg) by mouth daily at bedtime. Indications: Manic-Depression 05/10/2023 Active aspirin 81 MG chewable tablet Chew and swallow 1 Tablet (81 mg) by mouth daily. 05/10/2023 Active atorvastatin (LIPITOR) 40 MG tablet Take 1 Tablet (40 mg) by mouth every evening. 05/10/2023 Active gabapentin (NEURONTIN) 300 MG capsuleIndications :Neuropathic Pain Take 2 Capsules (600 mg) by mouth three times a day. Indications: Neuropathic Pain 05/10/2023 Active metoprolol succinate (TOPROL XL) 25 MG 24 hour release tablet Take 1 Tablet (25 mg) by mouth daily. 05/10/2023 Active cyclobenzaprine (FLEXERIL) 10 MG tabletIndications: Muscle Spasm Take 1 Tablet (10 mg) by mouth three times a day as needed. Indications: Muscle Spasm 60 Tablet 05/10/2023 Active Active Problems Problem Noted Date Diagnosed Date Encephalopathy 05/09/2023 Troponin level elevated 05/08/2023 USAMA (acute kidney injury) 05/08/2023 Substance induced mood disorder 05/08/2023 Polysubstance dependence 05/08/2023 Methamphetamine use 05/07/2023 Benzodiazepine misuse 05/07/2023 Syncope 05/07/2023 S/P lumbar spinal fusion 05/07/2023 Erectile dysfunction 07/11/2018 Psychosis 09/17/2015 Anxiety disorder 09/11/2015 Bipolar affective disorder 09/11/2015 Overview: Psychiatrist is Coretta Hawkins at [facility] although does video calls with her 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 Alcohol use disorder 09/11/2015 Migraine headache 11/19/2009 Hypertension 02/27/2009 Hyperlipidemia with target LDL less than 130 Overview: ICD 10 Genital herpes 02/27/2009 Generalized headaches 02/27/2009 Chronic low back pain 02/27/2009 GERD (gastroesophageal reflux disease) 9 Encounters Date Type Department Care Team Description 05/08/2023 6:31 PM STAVE BLOCK SPLITTER - 05/10/2023 11:33 AM [facility] Hospital Encounter [id number] [address] [place] [address] Genet Crawley MD S/P lumbar spinal fusion (Primary Dx); Elevated troponin Discharge Disposition: Home 05/07/2023 4:45 PM [facility] BLOCK [facility] Ancillary Procedure [facility] [address] [place] [address] 05/07/2023 5:30 AM [facility] Anc[facility] [address] [place] [address] 05/07/2023 5:15 AM [facility] BLOCK SPLITTER Ancillary Procedure [facility] US ED [address] [place] [address] 05/07/2023 3:28 AM [facility]TER - 05/08/2023 6:04 PM [facility] Hospital Encounter RH [id number] [address] [place] [address] Shanta Kaur MD Schnitker, Callie K, MD Wilson, Zaki Ledesma MD Syncope and collapse (Primary Dx); USAMA (acute kidney injury) (HRC); Hypokalemia; Acute electrocardiogram changes; Elevated troponin; Acute respiratory failure with hypoxia (HRC); Symptomatic hypotension; Blood alcohol request Discharge Disposition: Inpatient Psychiatric Facility from Last 3 Months Immunizations Name Administration Dates Next Due HepB Adult (Engerix-B, 20+ y rs, 3 dose series) 12/10/2017,05/27/2017,01/31/2016 Td 05/21/2003 Tdap 05/03/2012 Zoster RZV (Shingrix) 05/09/2018,05/27/2017 Family History Medical History Relation Name Comments [...] place to sleep or slept in a detention (including now)? No 05/07/2023 Sex and Gender Information Value Date Recorded Sex Assigned at Not on file Gender Identity Not on file Sexual Orientation Not on file Last Filed Vital Signs Vital Sign Reading Time Taken Comments Blood Pressure 151/89 05/10/2023 12:00 PM [facility] BLOCK S[facility]ITTER Pulse 80 05/10/2023 7:55 AM STAVE BLOCK SPLITTER Temperature 36.7 ??C (98 ??F) 05/10/2023 7:55 AM [facility] BLOCK [facility]TER Respiratory Rate 18 05/10/2023 7:55 AM ST[facility] BLOCK SPLITTER Oxygen Saturation 99% 05/10/2023 7:55 AM ST[facility] BLOCK SPLITTER Inhaled Oxygen Concentration - - Weight 92.4 kg (203 lb 11.2 oz) 05/08/2023 6:34 PM STAVE BLOCK SPLITTER Height 185.4 cm (6' 1) 05/08/2023 6:34 PM STAVE BLOCK SPLITTER Body Mass Index 26.87 05/08/2023 6:34 PM STAVE BLOCK SPLITTER Plan of Treatment Health Maintenance Due Date Last Done Comments Colon Cancer Screening Plan Due 1965 Medicare Welcome Visit 1965 PSA Screening Discussion 1965 Pneumococcal (1 - PCV) 12/09/1971 Diabetes Screening- (based on age and BMI) 06/21/2021 06/21/2018, 05/03/2017 DTaP/Tdap/Td (2 - Tdap) 05/03/2022 05/03/2012, 05/20 COVID-19 Vaccine ( season) 2022 06/21/2020, 05/24/2020 Influenza (Season Ended) 2023 006, 01/08/2005, 01/04/2002, Additional history exists Cholesterol 05/06/2028 05/07/2023, 06/06, 12/10/2017, Additional history exists HIV Screening (Preventive Services) Completed 05/27/2017, 09/17/2015, 08/12/2009 Hep C Screening (Preventive Services) Completed 05/27/2017, 08/12/2009 HepB Completed 12/10/2017, 05/07, 01/31/2016 Zoster/Shingles Completed 05/09/2018, 05/27/2017 HepA Aged Out No longer eligi ble based on patient's age to complete this topic Hib Aged Out No longer eligi ble based on patient's age to complete this topic IPV (Polio) Aged Out No longer eligi ble based on patient's age to complete this topic MCV4 Aged Out No longer eligi ble based on patient's age to complete this topic Procedures Procedure Name Priority Date/Time Associated Diagnosis Comments BASIC METABOLIC PANEL Routine 05/10/2023 8:06 AM STAVE BLOCK SPLITTER CK, TOTAL Add-On 05/08/2023 8:37 AM STAVE BLOCK SPLITTER LIVER PANEL(HEPATIC FUNCTION PANEL) Routine 05/08/2023 8:37 AM STAVE BLOCK SPLITTER BASIC METABOLIC PANEL Routine 05/08/2023 8:37 AM STAVE BLOCK SPLITTER COMPLETE BLOOD COUNT-NO DIFF Routine 05/08/2023 8:37 AM STAVE BLOCK SPLITTER INPATIENT TELEMETRY MONITORING Routine 05/08/2023 7:18 AM ST[facility] BLOCK SPLITTER INPATIENT TELEMETRY MONITORING Routine 05/07/2023 11:31 PM [facility] BLOCK SPLITTER INPATIENT TELEMETRY MONITORING Routine 05/07/2023 11:31 PM STAVE BLOCK SPLITTER CK, TOTAL Add-On 05/07/2023 9:09 PM STAVE BLOCK SPLITTER TROPONIN I STAT 05/07/2023 9:09 PM STAVE BLOCK SPLITTER US RENAL W BLADDER Routine 05/07/2023 8: 19 PM STAVE BLOCK SPLITTER INPATIENT TELEMETRY MONITORING Routine 05/07/2023 4:25 PM STAVE BLOCK SPLITTER TROPONIN I Specified Time 05/07/2023 4:06 PM STAVE BLOCK SPLITTER URINE DRUG COMPREHENSIVE PANEL (WITH CONFIRMATION) Routine 05/07/2023 2:52 PM STAVE BLOCK SPLITTER RAPID DRUG PANEL, URINE (WITH CONFIRMATION) Routine 05/07/2023 2:52 PM STAVE BLOCK SPLITTER RAPID FENTANYL, URINE (WITH CONFIRMATION) Routine 05/07/2023 2:52 PM STAVE BLOCK SPLITTER CREATININE,UR RANDOM Routine 05/07/2023 2:52 PM STAVE BLOCK SPLITTER SODIUM, URINE RANDOM Routine 05/07/2023 2:52 PM STAVE BLOCK SPLITTER UA CONDITIONAL UC STAT 05/07/2023 2:5 2 PM STAVE BLOCK SPLITTER PHOSPHATIDYLETHANOL (PETH), QUANTITATIVE Routine 05/07/2023 2:11 PM STAVE BLOCK SPLITTER XA UNFRACTIONATED HEPARIN Specified Time 2023 2:11 PM STAVE BLOCK SPLITTER ANTI-XA (HEPARIN AND LMWH LEVEL)/FONDAPARINUX ASSAY Specified Time 05/07/2023 2:11 PM STAVE BLOCK SPLITTER EJECTION FRACTION Routine 05/07/2023 1:1 5 PM STAVE BLOCK SPLITTER CARDIAC ROUTINE ECHOCARDIOGRAM Routine 05/07/2023 1:15 PM STAVE BLOCK SPLITTER LIPID PANEL & DIRECT LDL (IF NEEDED) Add-On 05/07/2023 12:06 PM [facility] BLOCK SPLITTER TROPONIN I STAT 05/07/2023 12:06 PM STAVE BLOCK SPLITTER TROPONIN I Specified Time 05/07/2023 9:36 AM STAVE BLOCK SPLITTER RSV, MOLECULAR DETECTION STAT 024 9:35 AM STAVE BLOCK SPLITTER INFLUENZA VIRUS A AND B, MOLECULAR DETECTION STAT 05/07/2023 9:35 AM STAVE BLOCK SPLITTER 2019 NOVEL CORONAVIRUS STAT 9:35 AM STAVE BLOCK SPLITTER COVID/INFLUENZA A&B/RSV STAT 05/07/19 24 9:35 AM STAVE BLOCK SPLITTER BLOOD GAS, VENOUS STAT 05/07/2023 7:3 7 AM STAVE BLOCK SPLITTER [address]99 ELECTROCARDIOGRAM TRACING STAT 05/07/2023 6:30 AM STAVE BLOCK SPLITTER CREATININE / GFR STAT Add-On 05/07/2023 6:22 AM STAVE BLOCK SPLITTER TROPONIN I Specified Time 05/07/2023 6:22 AM STAVE BLOCK SPLITTER [address]156 LACTATE, WHOLE BLOOD Routine 05/07/2023 6:[address] ANGIO CHEST W IV CONT PE STUDY STAT 05/07/2023 5:47 AM STAVE BLOCK SPLITTER POC US BASIC CARDIAC Routine 05/07/2023 5:13 AM STAVE BLOCK SPLITTER [address]81 ELECTROCARDIOGRAM TRACING STAT 05/07/2023 5:01 AM STAVE BLOCK SPLITTER INR/PROTIME STAT Add-On 05/07/2023 4:20 AM STAVE BLOCK SPLITTER APTT (ACTIVATED PARTIAL THROMBOPLASTIN TIME STAT Add-On 05/07/2023 4:20 AM STAVE BLOCK SPLITTER BRAIN NATRIURETIC PEPTIDE (BNP) STAT Add-On 05/07/2023 4:20 AM STAVE BLOCK SPLITTER LIVER PANEL(HEPATIC FUNCTION PANEL) STAT Add-On 05/07/2023 4:20 AM STAVE BLOCK SPLITTER D DIMER, QUANTITATIVE STAT Add-On 05/07/2023 4:20 AM STAVE BLOCK SPLITTER EXTRA BLUE TOP TUBE Routine 05/07/2023 4 :20 AM STAVE BLOCK SPLITTER MAGNESIUM STAT 05/07/2023 4:20 AM STAVE BLOCK SPLITTER ALCOHOL,ETHYL STAT 05/07/2023 4:20 AM STAVE BLOCK SPLITTER TROPONIN I Specified Time 05/07/2023 4:20 AM STAVE BLOCK SPLITTER COMPLETE BLOOD COUNT-NO DIFF STAT 05/07/2023 4:20 AM STAVE BLOCK SPLITTER BASIC METABOLIC PANEL STAT 05/07/2023 4:20 AM STAVE BLOCK SPLITTER HGB A1C Routine 06/21/2018 12:06 PM CDT High risk medication use Screening, lipid HIV 1/2 AG/AB 4TH GEN Routine 05/27/2017 2:42 PM CDT Screening for viral disease HEPATITIS C ANTIBODY, WITH REFLEX Routine 05/27/2017 2:42 PM CDT Screening for viral disease from Last 3 Months or Most Recently Relevant to Health Maintenance Results * (ABNORMAL) Basic Metabolic Panel (05/10/2023 8:06 AM STAVE BLOCK SPLITTER) Only the most recent of3 resultswithin the time period is included. Sodium 139 136 - 145 mmol/L 05/10/2023 8:49 AM [facility] Potassium 3.8 3.5 - 5.1 mmol/L 05/10/2023 8:49 AM [facility] Comment:Specimen slightly he molyzed. Hemolysis may affect result. Chloride 102 98 - 109 mmol/L 05/10/2023 8:49 AM [facility] CO2 26 20 - 29 mmol/L 05/10/2023 8:49 AM [facility] Anion Gap 11 7 - 16 mmol/L 05/10/2023 8:49 AM [facility] Calcium 10.1 8.4 - 10.4 mg/dL 05/10/2023 8:49 AM [facility] BUN 17 7 - 26 mg/dL 05/10/2023 8:49 AM [facility] Creatinine 1.30(H) 0.73 - 1.18 mg/dL 05/10/2023 8:49 AM [facility] Glucose 84 70 - 100 mg/dL 05/10/2023 8:49 AM [facility] Comment:The given reference range is for the fasting state. Non-fasting reference range for glucose is 70 - 180 mg/dL. GFR, Estimated >60 >60 mL/min/1.7 3m2 05/10/2023 8:49 AM [facility] Blood Venipuncture / Unknown 05/10/2023 8:06 AM STAVE BLOCK SPLITTER 05/10/2023 8:12 AM STAVE BLOCK SPLITTER Laurie iTneo PA-C LAB_1 Performing Organization Address City/State/[facility] Co de Phone Number [address] * (ABNORMAL) Liver Panel(Hepatic Function Panel) (05/08/2023 8:37 AM STAVE BLOCK SPLITTER) Only the most recent of2 resultswithin the time period is included. Alkaline Phosphatase 64 40 - 150 U/L 05/08/2023 9:55 AM [facility] Bilirubin, Total 0.8 0.2 - 1.2 mg/dL 05/08/2023 9:55 AM [facility] Bilirubin, Direct 0.4 0.0 - 0.5 mg/dL 05/08/2023 9:55 AM [facility] AST (SGOT) 37 10 - 40 U/L 05/08/2023 9:55 AM [facility] ALT (SGPT) 28 <=55 U/L 05/08/2023 9:55 AM [facility] Protein, Total 6.5 6.4 - 8.3 g/dL 05/08/2023 9:55 AM [facility] Albumin 3.3(L) 3.5 - 5.0 g/dL 05/08/2023 9:55 AM [facility] Blood Venipuncture / Unknown 05/08/2023 8:37 AM STAVE BLOCK SPLITTER 05/08/2023 9:21 AM STAVE BLOCK SPLITTER Zaki Velásquez MD LAB_[address] * (ABNORMAL) Complete Blood Count-No Diff (05/08/2023 8:37 AM STAVE BLOCK SPLITTER) Only the most recent of2 resultswithin the time period is included. WBC 6.7 3.5 - 10.5 x10(9)/L 05/08/2023 9:29 AM [facility] RBC 5.82(H) 4.32 - 5.72 x10(12)/L 05/08/2023 9:29 AM [facility] Hemoglobin 17.5 13.5 - 17.5 g/dL 05/08/2023 9:29 AM [facility] HCT 53.1(H) 38.8 - 50.0 % 05/08/2023 9:29 AM [facility] MCV 91.2 80.0 - 100.0 fL 05/08/2023 9:29 AM [facility] MCH 30.1 27.6 - 33.3 pg 05/08/2023 9:29 AM [facility] MCHC 33.0 31.5 - 35.2 g/dL 05/08/2023 9:29 AM [facility] RDW 13.6 11.9 - 15.5 % 05/08/2023 9:29 AM [facility] Platelets 159 150 - 450 x10(9)/L 05/08/2023 9:29 AM [facility] Automated NRBC 0 <=0 /100 WBC 05/08/2023 9:29 AM [facility] Blood Venipuncture / Unknown 05/08/2023 8:37 AM STAVE BLOCK SPLITTER 05/08/2023 9:21 AM STAVE BLOCK SPLITTER Trish Patel MD LAB_[address] * CK, Total (05/08/2023 8:37 AM STAVE BLOCK SPLITTER) Only the most recent of2 resultswithin the time period is included. CK, Total 181 30 - 200 U/L 05/08/2023 11:46 AM STAVE BLOCK SPLITTER [facility] Blood Venipuncture / Unknown 05/08/2023 8:37 AM STAVE BLOCK SPLITTER 05/08/2023 9:21 AM STAVE BLOCK SPLITTER Zaki Velásquez MD LAB_1 Performing Organization Address [facility] Co de Phone Number [address] * INPATIENT TELEMETRY MONITORING (05/08/2023 7:18 AM STAVE BLOCK SPLITTER) Only the most recent of4 resultswithin the time period is included. TELE P-R INTERVAL 0.20 MUSE G[facility] TELE QRS DURATION 0.07 MUSE [facility] TELE R-R INTERVAL 0.81 MUSE [facility] TELE INTERPRETATION Sinus Rhythm HR 75 [place] MUSE GHP 05/08/2023 7:18 AM STAVE BLOCK SPLITTER Narrative MUSE G[facility] - 05/08/2023 7:58 AM STAVE BLOCK SPLITTER Sinus Rhythm ??HR 75 [place] Interface Provider EKG Performing Organization Address [facility] de Phone Number [facility] [address] [place] [address] * (ABNORMAL) Troponin I (05/07/2023 9:09 PM STAVE BLOCK SPLITTER) Only the most recent of6 resultswithin the time period is included. Pathologist [facility] Troponin I 0.76(H) 0.00 - 0.03 ng/mL 05/07/2023 9:51 PM STAVE BLOCK SPLITTER [facility] Blood Venipuncture / Unknown 05/07/2023 9:09 PM STAVE BLOCK SPLITTER 05/07/2023 9:22 PM STAVE BLOCK SPLITTER Zaki Velásquez MD LAB_1 Performing Organization Address [facility] Co de Phone Number [address] * US Renal W Bladder (05/07/2023 8:19 PM STAVE BLOCK SPLITTER) Anatomical Region Laterality Modality Abdomen, Pelvis Ultrasound 05/07/2023 8:19 PM STAVE BLOCK SPLITTER Narrative 05/07/2023 8:22 PM STAVE BLOCK SPLITTER EXAM: US RENAL W BLADDER LOCATION: [facility] DATE: 05/07/2023 INDICATION: USAMA COMPARISON: None. TECHNIQUE: Routine Bilateral Renal and Bladder Ultrasound. FINDINGS: RIGHT KIDNEY: 13.4 cm. Normal without hydronephrosis or masses. LEFT KIDNEY: 15.1 cm. No hydronephrosis. Benign-appearing 2.2 cm cyst at the midpole. No follow-up needed. BLADDER: Normal. IMPRESSION: 1. ??No hydronephrosis. Procedure Note Ángel Zamora MD - 05/07/2023 EXAM: US RENAL W BLADDER LOCATION: [facility] DATE: 05/07/2023 INDICATION: USAMA COMPARISON: None. TECHNIQUE: Routine Bilateral Renal and Bladder Ultrasound. FINDINGS: RIGHT KIDNEY: 13.4 cm. Normal without hydronephrosis or masses. LEFT KIDNEY: 15.1 cm. No hydronephrosis. Benign-appearing 2.2 cm cyst atthe midpole. No follow-up needed. BLADDER: Normal. IMPRESSION: 1. No hydronephrosis. Zaki Velásquez MD [facility] US * Rapid Fentanyl, Urine (with confirmation) (05/07/2023 2:52 PM STAVE BLOCK SPLITTER) Pathologist [facility] Rapid Fentanyl Screen Not Detected Not Detected 05/07/2023 3:37 PM [facility] Creatinine, Urine, Random 206 >20 mg/dL 05/07/2023 3:37 PM [facility] Urine Non-blood Collection / Unknown 05/07/2023 2:52 PM STAVE BLOCK SPLITTER 05/07/2023 3:02 PM STAVE BLOCK SPLITTER [facility] - 05/07/2023 3:37 PM STAVE BLOCK SPLITTER The absence of expected drug(s) and/or drug metabolite(s) may indicate non-compliance, inappropriate timing of specimen collection relative to drug administration, poor drug absorption, diluted/adulterated urine or limitations of testing. The concentration must be greater than or equal to the cutoff concentration to be reported as positive. For medical purposes only: not valid for forensic, legal, or employment use. Althea Grigsby PA-C LAB_[address] [address], [facility] * (ABNORMAL) Urine Drug Comprehensive Panel (with Confirmation) (05/07/2023 2:52 PM STAVE BLOCK SPLITTER) [facility] Vbmme-OI-Rnoynyoh am, urine Confirmed Positive(A) Not Detected 05/11/2023 12:19 PM [facility] Alprazolam, urine Confirmed Positive(A) Not Detected 05/11/2023 12:19 PM [facility] Amitryptyline, urine Not Detected Not Detected 05/11/2023 12:19 PM [facility] Amphetamine, urine Confirmed Positive(A) Not Detected 05/11/2023 12:19 PM [facility] Benzoylecgonine, urine Not Detected Not Detected 05/11/2023 12:19 PM [facility] Buprenorphine, urine Not Detected Not Detected 05/11/2023 12:19 PM [facility] Bupropion, urine Not Detected Not Detected 07/2023 12:19 PM [facility] Butalbital, urine Not Detected Not Detected 07/2023 12:19 PM [facility] Carisoprodol, urine Not Detected Not Detected 05/11/2023 12:19 PM [facility] Citalopram, urine Confirmed Positive(A) Not Detected 05/11/2023 12:19 PM [facility] Clomipromine, urine Not Detected Not Detected 05/11/2023 12:19 PM [facility] Clonazepam Metab 7-Aminoclonazepam , urine Not Detected Not Detected 05/11/2023 12:19 PM [facility] Clonazepam, urine Not Detected Not Detected 07/2023 12:19 PM [facility] Cocaine, urine Not Detected Not Detected 2023 12:19 PM [facility] Codeine, urine Not Detected Not Detected 2023 12:19 PM [facility] Cyclobenzaprine, urine Confirmed Positive(A) Not Detected 05/11/2023 12:19 PM [facility] Desipramine, urine Not Detected Not Detected 05/11/2023 12:19 PM [facility] Diazepam, urine Not Detected Not Detected 05/10 12:19 PM [facility] Doxepin, urine Not Detected Not Detected 2023 12:19 PM [facility] Ecstasy MDMA, urine Not Detected Not Detected 05/11/2023 12:19 PM [facility] Ecstasy Metab MDA, urine Not Detected Not Detected 05/11/2023 12:19 PM [facility] Fentanyl, urine Not Detected Not Detected 05/10 12:19 PM [facility] Fluoxetine, urine Not Detected Not Detected 07/2023 12:19 PM [facility] Gabapentin, urine Confirmed Positive(A) Not Detected 05/11/2023 12:19 PM [facility] Heroin Metab 6-acetylmorphine, urine Not Detected Not Detected 05/11/2023 12:19 PM [facility] Hydrocodone, urine Not Detected Not Detected 05/11/2023 12:19 PM [facility] Hydromorphone, urine Not Detected Not Detected 05/11/2023 12:19 PM [facility] Imipramine, urine Not Detected Not Detected 07/2023 12:19 PM [facility] Ketamine, urine Not Detected Not Detected 05/10 12:19 PM [facility] Lorazepam, urine Not Detected Not Detected 07/2023 12:19 PM [facility] Marijuana Metabolite, urine Confirmed Positive(A) Not Detected 05/11/2023 12:19 PM [facility] Meperidine, urine Not Detected Not Detected 07/2023 12:19 PM [facility] Meprobamate, urine Not Detected Not Detected 05/11/2023 12:19 PM [facility] Methadone Metab EDDP, urine Not Detected Not Detected 05/11/2023 12:19 PM [facility] Methadone, urine Not Detected Not Detected 07/2023 12:19 PM [facility] Methamphetamine, urine Confirmed Positive(A) Not Detected 05/11/2023 12:19 PM [facility] Methylphenidate, urine Not Detected Not Detected 05/11/2023 12:19 PM [facility] Mirtazapine, urine Not Detected Not Detected 05/11/2023 12:19 PM [facility] Morphine, urine Not Detected Not Detected 05/10 12:19 PM [facility] Norbuprenorphine, urine Not Detected Not Detected 05/11/2023 12:19 PM [facility] Nordiazepam, urine Not Detected Not Detected 05/11/2023 12:19 PM [facility] Desmethyldoxapine , urine Not Detected Not Detected 05/11/2023 12:19 PM [facility] Norfentanyl, urine Not Detected Not Detected 05/11/2023 12:19 PM [facility] Nortriptyline, urine Not Detected Not Detected 05/11/2023 12:19 PM [facility] O-desmethylvenlaf axine, urine Not Detected Not Detected 05/11/2023 12:19 PM [facility] Oxazepam, urine Not Detected Not Detected 05/10 12:19 PM [facility] Oxycodone, urine Confirmed Positive(A) Not Detected 05/11/2023 12:19 PM [facility] Oxymorphone, urine Not Detected Not Detected 05/11/2023 12:19 PM [facility] Paroxatine, urine Not Detected Not Detected 07/2023 12:19 PM [facility] Phencyclidine, urine Not Detected Not Detected 05/11/2023 12:19 PM [facility] Phenobarbital, urine Not Detected Not Detected 05/11/2023 12:19 PM [facility] Pregabalin, urine Not Detected Not Detected 07/2023 12:19 PM [facility] Quetiapine, urine Confirmed Positive(A) Not Detected 05/11/2023 12:19 PM [facility] Sertraline, urine Not Detected Not Detected 07/2023 12:19 PM [facility] [facility] Tapentadol, urine Not Detected Not Detected 07/2023 12:19 PM [facility] Temazepam, urine Not Detected Not Detected 07/2023 12:19 PM [facility] Tramadol, urine Not Detected Not Detected 05/10 12:19 PM [facility] Venlafaxine, urine Not Detected Not Detected 05/11/2023 12:19 PM [facility] Zolpidem, urine Not Detected Not Detected 05/10 12:19 PM [facility] Creatinine, Urine, Random 206 >20 mg/dL 05/11/2023 12:19 PM [facility] Medication Check Inconsistent with Med List(A) Consistent with Med List 05/11/2023 12:19 PM [facility] Patient Medication History Current Facility-Admin istered [...] outpatient medications on file. 05/11/2023 12:19 PM [facility] Medication Interpretation Not prescribed and detected: Alprazolam not prescribed and detected with metabolite antwk-IO-uqdni zolam Cannabis detected as THC metabolite Citalopram not prescribed and detected Cyclobenzaprin e not prescribed and detected Methamphetamin e detected with metabolite amphetamine Oxycodone not prescribed and detected Prescribed and not detected: Diazepam prescribed and not detected Prescribed and detected: Gabapentin prescribed and detected Quetiapine prescribed and detected 05/11/2023 12:19 PM [facility] Urine Non-blood Collection / Unknown 05/07/2023 2:52 PM STAVE BLOCK SPLITTER 05/07/2023 3:02 PM STAVE BLOCK SPLITTER [facility] - 05/11/2023 12:19 PM STAVE BLOCK SPLITTER The absence of expected drug(s) and/or drug [...] developed and its performance characteristics validated by [facility]. It has not been cleared nor approved by the FDA. Zaki Velásquez MD LAB_[id number] [place] [address] * (ABNORMAL) Rapid Drug Panel, Urine (with Confirmation) with THC (05/07/2023 2:52 PM STAVE BLOCK SPLITTER) [facility] Amphetamines Screen Presumptive Positive(A) Not Detected 05/07/2023 3:37 PM [facility] Barbiturates Screen Not Detected Not Detected 05/07/2023 3:37 PM [facility] Benzodiazepines Screen Presumptive Positive(A) Not Detected 05/07/2023 3:37 PM [facility] Buprenorphine Screen Not Detected Not Detected 05/07/2023 3:37 PM [facility] Cocaine Metabolite Screen Not Detected Not Detected 05/07/2023 3:37 PM [facility] Methadone Screen Not Detected Not Detected 05/07/2023 3:37 PM [facility] Opiates Screen Not Detected Not Detected 05/07/2023 3:37 PM [facility] Oxycodone Screen Not Detected Not Detected 05/07/2023 3:37 PM [facility] Phencyclidine (PCP) Screen Not Detected Not Detected 05/07/2023 3:37 PM [facility] THC (Marijuana) Metab Screen Presumptive Positive(A) Not Detected 05/07/2023 3:37 PM [facility] Creatinine, Urine, Random 206 >20 mg/dL 05/07/2023 3:37 PM [facility] Urine Non-blood Collection / Unknown 05/07/2023 2:52 PM STAVE BLOCK SPLITTER 05/07/2023 3:02 PM STAVE BLOCK SPLITTER [facility] 05/07/2023 3:37 PM STAVE BLOCK SPLITTER The absence of expected drug(s) and/or drug metabolite(s) may indicate non-compliance, inappropriate timing of specimen collection relative to drug administration, poor drug absorption, diluted/adulterated urine or limitations of testing. The concentration must be greater than or equal to the cutoff concentration to be reported as positive. For medical purposes only: not valid for forensic, legal, or employment use. Zaki Velásquez MD LAB_[address] [address], [facility] * (ABNORMAL) UA Conditional UC: Clean Catch (05/07/2023 2:52 PM STAVE BLOCK SPLITTER) Urine Culture Comment Urinalysis results do not meet criteria for urine culture reflex. 05/07/2023 3:16 PM [facility] Urine Color Yellow 05/07/2023 3:16 PM [facility] Urine Clarity Clear Clear 05/07/2023 3:16 PM [facility] Specific [place], Urine 1.042(H) <1.030 05/07/2023 3:16 PM [facility] Comment:The Specific gravity may be falsely elevated due to the presence of x- ray contrast media, high molecular weight drugs, protein OVER (>600) or Glucose OVER (>1000). If results needed contact lab to have specific gravity performed by alternate method. PH Urine 6.5 5.0 - 8.0 05/07/2023 3:16 PM [facility] Protein, Urine Qual (mg/dL) 30(A) Negative, 10 , 20 05/07/2023 3:16 PM [facility] Glucose Urine Qual (mg/dL) Normal (Negative) Normal (Negative), 30 , 50 05/07/2023 3:16 PM [facility] Ketones, Urine (mg/dL) 10(A) Negative, Trace 05/07/2023 3:16 PM [facility] Urobilinogen, Urine (EU/dL) Normal (Negative) Normal (Negative) 05/07/2023 3:16 PM [facility] Bilirubin Urine (mg/dL) Negative Negative 05/07/2023 3:16 PM [facility] Blood, Urine (mg/dL) Negative Negative, 0.03 (Trace) 05/07/2023 3:16 PM [facility] Nitrite Urine Negative Negative 05/07/2023 3:16 PM [facility] Leukocyte Esterase, Urine (Dean/uL) Negative Negative, 25 (Trace) 05/07/2023 3:16 PM [facility] Red Blood Cells 7(H) 0 - 3 /HPF 05/07/2023 3:16 PM [facility] White Blood Cells 5 0 - 5 /HPF 05/07/2023 3:16 PM [facility] Mucus Present(A) None Seen /HPF 05/07/2023 3:16 PM [facility] Hyaline Casts 11(H) <=2 /LPF 05/07/2023 3:16 PM [facility] Urine Source Clean Catch 05/07/2023 3:16 PM [facility] Urine URINE SPECIMEN COLLECTION, CLEAN CATCH / Unknown Non-blood Collection / Unknown 05/07/2023 2:52 PM STAVE BLOCK SPLITTER 05/07/2023 3:04 PM STAVE BLOCK SPLITTER Narrative [facility] - 05/07/2023 3:16 PM STAVE BLOCK SPLITTER The qualitative interpretive guidance provided (e.g., small, moderate, large) is intended to aid in quantitative result interpretation. It is not itself an FDA-cleared test result. Shanta Kaur MD LAB_[address] [address], [facility] * Sodium, Urine Random (05/07/2023 2:52 PM STAVE BLOCK SPLITTER) Sodium, Urine Random 43 mmol/L 05/07/2023 4:55 PM [facility] Urine Non-blood Collection / Unknown 05/07/2023 2:52 PM STAVE BLOCK SPLITTER 05/07/2023 3:02 PM STAVE BLOCK SPLITTER Zaki Velásquez MD LAB_1 Performing Organization Address [facility] Co de Phone Number [address] * Creatinine, Urine Random (05/07/2023 2:52 PM STAVE BLOCK SPLITTER) Creatinine, Urine, Random 206 >20 mg/dL 05/07/2023 3:37 PM STAVE BLOCK SPLITTER [facility] Urine Non-blood Collection / Unknown 05/07/2023 2:52 PM STAVE BLOCK SPLITTER 05/07/2023 3:02 PM STAVE BLOCK SPLITTER Zaki Velásquez MD LAB_1 Performing Organization Address [facility] de Phone Number [address] * (ABNORMAL) XA Unfractionated Heparin (05/07/2023 2:11 PM STAVE BLOCK SPLITTER) Heparin 10a Level (Unfractionate d Hep) 0.11(L) 0.30 - 0.70 IU/mL 05/07/2023 2:38 PM STAVE BLOCK SPLITTER [facility] Blood Venipuncture / Unknown 05/07/2023 2:11 PM STAVE BLOCK SPLITTER 05/07/2023 2:14 PM STAVE BLOCK SPLITTER Zaki Velásquez MD LAB_1 Performing Organization Address [facility] Co de Phone Number [address] * Phosphatidylethanol (PEth), Quantitative (05/07/2023 2:11 PM STAVE BLOCK SPLITTER) PEth 16:0/18:1 (POPEth) 142 ng/mL 05/11/2023 2:45 PM STAVE BLOCK SPLITTER [facility] Comment: PEth 16:0/18:1 (POPEth) Less than 10 ng/mL............Not detected Less than 20 ng/mL............Abstinence or light alcohol consumption 20 - 200 ng/mL................Moderate alcohol consumption Greater than 200 ng/mL........Heavy alcohol consumption or chronic alcohol use (Reference: Layne Mann and Toni Muñoz 2018 J. Forensic Sci) PEth 16:0/18:2 (PLPEth) 100 ng/mL 05/11/2023 2:45 PM STAVE BLOCK SPLITTER [facility] Comment:Reference ranges are not well established. EER Peth See Note 05/11/2023 2:45 PM STAVE BLOCK SPLITTER [employer] Comment: Authorized individuals can access the [employer] Enhanced Report using the following link: [email or web address] PEth Interpretation See Comment 05/11/2023 2:45 PM STAVE BLOCK SPLITTER [facility] Comment: Phosphatidylethanol (PEth) is a group of [...] developed and its performance characteristics determined by [facility]. It has not been cleared or approved by the U.S. Food and Drug Administration. This test was performed in a CLIA-certified laboratory and is intended for clinical purposes. Performed By: [facility] [address] [place] [address] Order To Delivery Supervisor: Ben Ellison MD, PhD CLIA Number: [id number] Blood Venipuncture / Unknown 05/07/2023 2:11 PM STAVE BLOCK SPLITTER 05/07/2023 2:14 PM STAVE BLOCK SPLITTER Althea Grigsby PA-C LAB_1 [facility] [address], [place] [address] [place] [address] * EJECTION FRACTION (05/07/2023 1:15 PM STAVE BLOCK SPLITTER) EF 60 % PROS[facility] EF test type ECHO PROS[facility]V 05/07/2023 1:15 PM STAVE BLOCK SPLITTER Trish Patel MD [facility] [address] [place] [address] * CARDIAC ROUTINE ECHOCARDIOGRAM (05/07/2023 1:15 PM STAVE BLOCK SPLITTER) 05/07/2023 1:15 PM STAVE BLOCK SPLITTER Narrative [facility] - 05/07/2023 2:56 PM STAVE BLOCK SPLITTER Summary ??1. Technically difficult exam, contrast was used. ??2. Sinus rhythm during study. ??3. grossly normal LV size and systolic function, EF 60%. No obvious focal wall motion abnormalities. ??4. Grossly eona-ov-rlyrkxmx LVH. ??5. Grossly normal RV size and systolic function. ??6. Mild aortic valve regurgitation. ??7. Mildly to moderately calcified annulus. Mean gradient 2.71 mm Hg at a heart rate of 93 beats per minute. ??8. Compared to outside study from March 14, 2023, the current study reveals last aortic regurgitation. Report Signatures Finalized by David Ennis on 05/07/2023 02:56 PM Procedure Note David Ennis MD - 05/07/2023 Summary 1. Technically difficult exam, contrast was used. 2. Sinus rhythm during study. 3. grossly normal LV size and systolic function, EF 60%. No obviousfocal wall motion abnormalities. 4. Grossly kiln-tk-mccfebha LVH. 5. Grossly normal RV size and [...] Trish Patel MD [facility]/ RH Performing Organization Address City/[facility]/ZIP Co de Phone Number [facility] [address] [place] [address] * (ABNORMAL) Lipid Panel & Direct LDL (if Needed) (05/07/2023 12:06 PM STAVE BLOCK SPLITTER) Cholesterol 91 0 - 199 mg/dL 05/07/2023 3:44 PM [facility] Triglyceride 77 <=149 mg/dL 05/07/2023 3:44 PM [facility] HDL Cholesterol 31(L) >=40 mg/dL 3:44 PM [facility] LDL, Calculated 45 <130 mg/dL 3:44 PM [facility] Non HDL Chol, Calculated 60 <=159 mg/dL 05/07/2023 3:44 PM [facility] Cholesterol/HDL Ratio 2.9 <=5.0 05/07/2023 3:44 PM [facility] Blood Venipuncture / Unknown 05/07/2023 12:06 PM STAVE BLOCK SPLITTER 05/07/2023 12:13 PM STAVE BLOCK SPLITTER Zaki Velásquez MD LAB_1 Performing Organization Address City/[facility]/ZIP Co de Phone Number [address] [address], [facility] * RSV RNA, Molecular Detection (05/07/2023 9:35 AM STAVE BLOCK SPLITTER) RSV by PCR Not Detected Not Detected 05/07/2023 10:34 AM [facility] Swab (Source Required) (Nasopharyngeal swab) Non-blood Collection / Unknown 05/07/2023 9:35 AM STAVE BLOCK SPLITTER 05/07/2023 9:42 AM STAVE BLOCK SPLITTER [facility] 05/07/2023 10:34 AM STAVE BLOCK SPLITTER Method: Qualitative real-time PCR assay to detect RSV Viral RNA. Trish Patel MD LAB_[address] * Influenza A and B by PCR (05/07/2023 9:35 AM STAVE BLOCK SPLITTER) [facility] INFLUENZA A MOLECULAR Not Detected Not Detected 05/07/2023 10:34 AM STAVE BLOCK SPLITTER [facility] INFLUENZA B MOLECULAR Not Detected Not Detected 05/07/2023 10:34 AM [facility] Swab (Source Required) (Nasopharyngeal swab) Non-blood Collection / Unknown 05/07/2023 9:35 AM STAVE BLOCK SPLITTER 05/07/2023 9:42 AM STAVE BLOCK SPLITTER [facility] 05/07/2023 10:34 AM STAVE BLOCK SPLITTER Methodology: ??Qualitative real-time PCR assay to detect the Influenza type A and type B viral RNA Trish Patel MD LAB_1 Performing Organization Address [facility] Co de Phone Number [address] * 2019 Novel Coronavirus (COVID-19) (05/07/2023 9:35 AM STAVE BLOCK SPLITTER) [facility] COVID-19 Interpretation Not Detected Not Detected 05/07/2023 10:34 AM STAVE BLOCK SPLITTER [facility] Source Nasopharyngeal swab 05/07/2023 10:34 AM [facility] Swab (Source Required) (Nasopharyngeal swab) Non-blood Collection / Unknown 05/07/2023 9:35 AM STAVE BLOCK SPLITTER 05/07/2023 9:42 AM STAVE BLOCK SPLITTER [facility] - 05/07/2023 10:34 AM STAVE BLOCK SPLITTER Test performed by real-time PCR. This test has been authorized by the FDA under an Emergency Use Authorization (EUA) for use by authorized laboratories. Trish Patel MD LAB_1 Performing Organization Address City/[facility]/ZIP Co de Phone Number [address] * (ABNORMAL) Blood Gas, Venous (05/07/2023 7:37 AM STAVE BLOCK SPLITTER) PH, Venous 7.37 7.31 - 7.41 05/07/2023 7:42 AM [facility] PCO2, Venous 54(H) 40 - 52 mmHg 05/07/2023 7:42 AM [facility] PO2, Venous 58(H) 30 - 50 mmHg 05/07/2023 7:42 AM [facility] HCO3, Calculated 31.0(H) 23.0 - 30.0 mmol/L 05/07/2023 7:42 AM [facility] O2 Saturation, Measured, Venous 89.8(H) 60.0 - 80.0 % 05/07/2023 7:42 AM [facility] Base Excess, Calculated 3.9(H) -2.0 - 2.0 mmol/L 05/07/2023 7:42 AM [facility] Blood Venipuncture / Unknown 05/07/2023 7:37 AM STAVE BLOCK SPLITTER 05/07/2023 7:40 AM STAVE BLOCK SPLITTER Trish Patel MD LAB_1 Performing Organization Address City/State/[facility] Co de Phone Number [address] * ECG 12-Lead STAT (05/07/2023 6:30 AM STAVE BLOCK SPLITTER) Only the most recent of2 resultswithin the time period is included. Ventricular Rate 88 BPM [facility] Atrial Rate 88 BPM [facility] P-R Interval 158 ms [facility] QRS Duration 90 ms [facility] QT 336 ms [facility] QTc 406 ms MUSE [facility] P [place] 57 degrees MUSE [facility] R [place] 27 degrees MUSE GHP T [place] 210 degrees MUSE [facility] 05/07/2023 6:30 AM STAVE BLOCK SPLITTER Narrative [facility] - 05/07/2023 8:23 AM STAVE BLOCK SPLITTER Sinus rhythm Minimal voltage criteria for LVH, may be normal variant ST & T wave abnormality, consider lateral ischemia Abnormal ECG When compared with ECG of 07-MAY-2023 05:01, Nonspecific T wave abnormality has replaced inverted T waves in Inferior leads QT has shortened Confirmed by Queenie Blue ([id number]) on 05/07/2023 8:23:01 AM Procedure Note Queenie Blue MD - 05/07/2023 Sinus rhythm Minimal voltage criteria for LVH, may be normal variant ST & T wave abnormality, consider lateral ischemia Abnormal ECG When compared with ECG of 07-MAY-2023 05:01, Nonspecific T wave abnormality has replaced inverted T waves in Inferiorleads QT has shortened Confirmed by Queenie Blue ([id number]) on 05/07/2023 8:23:01 AM Shanta Kaur MD EKG Performing Organization Address [facility]/ZIP Co de Phone Number [facility] [address] [place] [address] * (ABNORMAL) Creatinine / GFR (05/07/2023 6:22 AM STAVE BLOCK SPLITTER) Creatinine 2.46(H) 0.73 - 1.18 mg/dL 05/07/2023 7:36 AM [facility] GFR, Estimated 30(L) >60 mL/min/1.7 3m2 05/07/2023 7:36 AM [facility] Blood Venipuncture / Unknown 05/07/2023 6:22 AM STAVE BLOCK SPLITTER 05/07/2023 6:26 AM STAVE BLOCK SPLITTER Shanta Kaur MD LAB_1 Performing Organization Address [facility] Co de Phone Number [address] * Lactate Panel, Venous POCT (05/07/2023 6:14 AM STAVE BLOCK SPLITTER) Lactate, Whole Blood 0.83 0.50 - 2.00 mmol/L 05/07/2023 6:16 AM [facility] PO2, Venous 36 30 - 50 mmHg 05/07/2023 6:16 AM [facility] Performing Location [facility] ED A 05/07/2023 6:16 AM [facility] Blood 05/07/2023 6:14 AM STAVE BLOCK SPLITTER 05/07/2023 6:16 AM STAVE BLOCK SPLITTER Sahnta Kaur MD LAB_1 Performing Organization Address [facility] Co de Phone Number [address] * CT Angio Chest W IV Cont PE Study (05/07/2023 5:47 AM STAVE BLOCK SPLITTER) Anatomical Region Laterality Modality Chest, Lung, Vascular Computed T omography 05/07/2023 5:47 AM STAVE BLOCK SPLITTER Narrative 05/07/2023 5:58 AM STAVE BLOCK SPLITTER EXAM: CT ANGIO CHEST W IV CONT PE STUDY LOCATION: [facility] DATE: 05/07/2023 INDICATION: Hypoxia, syncope, ischemic [...] CHEST W IV CONT PE STUDY LOCATION: [facility] DATE: 05/07/2023 INDICATION: Hypoxia, syncope, ischemic [...] 3 mm bilateral pulmonary nodules. Per Fleischner [id number] guideline, a one-year follow-up chest CT could be considered ifpatient is at high risk for lung cancer. Without lung cancer risk factor,no follow-up is necessary. Shanta Kaur MD RAD CT * POC US Basic Cardiac (05/07/2023 5:13 AM STAVE BLOCK SPLITTER) Anatomical Region Laterality Modality Chest, Cardiac, US Cardiac Other Narrative 05/07/2023 11:08 AM STAVE BLOCK SPLITTER Aaron Patterson MD ? 05/07/2023 ??2:31 PM [facility] Point of Care Ultrasound Interpretation POC US Basic Cardiac Date/Time: 05/07/2023 11:08 AM Performed by: Aaron Patterson MD Authorized by: Shanta Kaur MD ?? Point of Care Ultrasound: Basic Cardiac Indications: Shortness of Breath and Syncope Window: Adequate for full imaging and interpretation Findings/ Impression (Within the context of limited xlsus-qk-xzoj ultrasound): Mildly Depressed LV Function, Right Ventricle Enlarged with positive D sign on parasternal short axis view concerning for elevated right-sided pressures, No Pericardial Effusion, and IVC Dilated Shanta Kaur MD RAD POC US * Extra Blue top tube (05/07/2023 4:20 AM STAVE BLOCK SPLITTER) [facility] Extra Blue Top Drawn Specimen will be held for 24 hours 05/07/2023 6:00 AM STAVE BLOCK SPLITTER [facility] Blood Venipuncture / Unknown 05/07/2023 4:20 AM STAVE BLOCK SPLITTER 05/07/2023 4:35 AM STAVE BLOCK SPLITTER Shanta Kaur MD LAB_1 Performing Organization Address City/[facility] Co de Phone Number [address] * B-Type Natriuretic Peptide (05/07/2023 4:20 AM STAVE BLOCK SPLITTER) [facility] B Type Natr. Peptide 15 <=99 pg/mL 05/07/2023 7:05 AM [facility] Blood Venipuncture / Unknown 05/07/2023 4:20 AM STAVE BLOCK SPLITTER 05/07/2023 4:34 AM STAVE BLOCK SPLITTER Shanta Kaur MD LAB_1 Performing Organization Address City/[facility] Co de Phone Number [address] * (ABNORMAL) D Dimer, Quantitative (05/07/2023 4:20 AM STAVE BLOCK SPLITTER) [facility] D Dimer, Quant 0.74(H) <=0.50 ug/mL FEU 05/07/2023 5:53 AM STAVE BLOCK SPLITTER [facility] Blood Venipuncture / Unknown 05/07/2023 4:20 AM STAVE BLOCK SPLITTER 05/07/2023 4:35 AM STAVE BLOCK SPLITTER [facility] - 05/07/2023 5:53 AM STAVE BLOCK SPLITTER A D-dimer level <=0.50 ug/mL FEU in [...] increasing clot age. Shanta Kaur MD LAB_[address] * (ABNORMAL) APTT (Activated Partial Thromboplastin Time) (05/07/2023 4:20 AM STAVE BLOCK SPLITTER) APTT 40.4(H) 22.5 - 36.5 Seconds 05/07/2023 7:55 AM [facility] Blood Venipuncture / Unknown 05/07/2023 4:20 AM STAVE BLOCK SPLITTER 05/07/2023 4:35 AM STAVE BLOCK SPLITTER Shanta Kaur MD LAB_[address] * Magnesium (05/07/2023 4:20 AM STAVE BLOCK SPLITTER) Magnesium 2.0 1.6 - 2.6 mg/dL 05/07/2023 5:00 AM [facility] Blood Venipuncture / Unknown 05/07/2023 4:20 AM STAVE BLOCK SPLITTER 05/07/2023 4:35 AM STAVE BLOCK SPLITTER Shanta Kaur MD LAB_1 Performing Organization Address [facility] Co de Phone Number [address] * Alcohol,Ethyl Level (05/07/2023 4:20 AM STAVE BLOCK SPLITTER) Ethyl Alcohol <0.01 <=0.01 g/dL 05/07/2023 5:00 AM [facility] Blood Venipuncture / Unknown 05/07/2023 4:20 AM STAVE BLOCK SPLITTER 05/07/2023 4:35 AM STAVE BLOCK SPLITTER [facility] - 05/07/2023 5:00 AM STAVE BLOCK SPLITTER For medical purposes only; not valid for forensic, legal, or employment use. Shanta Kaur MD LAB_1 Performing Organization Address [facility] de Phone Number [address] * INR/PROTIME (05/07/2023 4:20 AM STAVE BLOCK SPLITTER) Protime 14.0 11.8 - 14.6 Seconds 05/07/2023 7:55 AM [facility] INR 1.1 0.9 - 1.1 05/07/2023 7:55 AM [facility] Blood Venipuncture / Unknown 05/07/2023 4:20 AM STAVE BLOCK SPLITTER 05/07/2023 4:35 AM STAVE BLOCK SPLITTER [facility] - 05/07/2023 7:55 AM STAVE BLOCK SPLITTER Therapeutic range determined by protocol established by anticoagulation provider. Shanta Kaur MD LAB_1 Performing Organization Address [facility] Co de Phone Number [address] * Hgb A1C (06/21/2018 12:06 PM CDT) Hemoglobin A1C 5.0 <=5.6 % 06/21/2018 3:25 PM CDT [facility] Blood Venipuncture / Unknown 06/21/2018 12:06 PM CDT 06/21/2018 12:06 PM CDT Coretta Hawkins APRN, CNP LAB_1 Performing Organization Address City/[facility]/ZIP Co de Phone Number [address] [address], [facility] [phone] * HIV 1/2 Ag/Ab 4th Generation (05/27/2017 2:42 PM CDT) Pathologist [facility] HIV 1/2 AG/AB 4thGEN Negative (Non Reactive) [facility] Comment:HIV-1 p24 Ag and HIV -1/HIV-2 Ab not detected. 05/27/2017 2:42 PM CDT 05/27/2017 2:44 PM CDT Narrative [facility] - 05/27/2017 7:17 PM CDT Performed at [facility] [employer] [facility], [address] [place] [address] ??[id number] Briana Vazquez PA-C LAB_1 Performing Organization Address [facility] de Phone Number [facility] [phone] * Hepatitis C Antibody, with Reflex (05/27/2017 2:42 PM CDT) Pathologist [facility] Anti-HCV Negative (Non Reactive) [facility] Comment: Antibodies to HCV not detected. Does not exclude the possibility of exposure to HCV. 05/27/2017 2:42 PM CDT 05/27/2017 2:44 PM CDT Narrative [facility] - 05/27/2017 6:44 PM CDT [facility], [address] [place] [address] ??[id number] Briana Vazquez PA-C LAB_1 Performing Organization Address [facility] Co de Phone Number Goji [phone] from Last 3 Months or Most Recently Relevant to Health Maintenance Advance Directives * Full Code (Latest Code Status on File) Date Activated Date Inactivated Comments 05/08/2023 6:42 PM 05/10/2023 2:26 PM * Full Code Date Activated Date Inactivated Comments 05/07/2023 11:14 AM 05/08/2023 6:31 PM * Full Code Date Activated Date Inactivated Comments 09/11/2015 5:39 PM 09/18/2015 2:12 PM Care Teams Director Telehealth Relationship Specialty Start Date End Date Briana Vazquez PA-C [address] [place] [address] PCP - General Physician Violin Repairer 11/29/19
--- OUTSIDE RECORDS SUMMARY | 2023-07-18 17:02 | XMS_ITS | Encounter Summary ---
Author Name Unknown Organization [facility] Address [address] [address] Care Team Providers Care Laundry Machine Tender Name Role Phone Briana Vazquez PA-C Primary Care Provider [phone] Reason for Referral * Consult/Transfer Care (Routine) - Closed Specialty Diagnoses / Procedures Referred By Pinky osorio Referred To Contact Diagnoses Encounter for long-term (current) [place] [address] [place] [address] Referral ID Status Reason Start Date Expiration Date Visits Re quested Visits Authorized [id number] Closed 12/30/2016 01/30/2017 1 1 Scheduling Instructions Your provider has recommended you to follow up with your Primary Lacer And Tier. If you are currently seeing a [facility] provider for your primary care needs, a parking inspector will contact you within the next 3 business days to assist you in setting up this appointment. To schedule your appointment you may call [phone]. We suggest you call your health insurance [...] You can schedule your appointment online at [facility] or by calling the appointment center at the phone number listed above. Thank you for choosing [facility]. Tanna Yen RN [facility] Refill Center Nurses Encounter Details Date Type Department Care Team (Late st Contact Info) Description 12/29/2016 Refill Order [place] [address] [place] [address] [place] [address] [place] [address] Social History Tobacco Use Types Packs/Day Years [...] of other medications documented in this encounter Additional Health Concerns Infection Onset Date Last Indicated Resolved Time R/O COVID19 05/07/2023 05/07/2023 05/07/2023 10:3 4 AM COMMERCIAL CREDIT PORTFOLIO MANAGER documented as of this encounter Care Teams Laundry Machine Tender Relationship Specialty Start Date End Date Briana Vazquez PA-C [address] [place] [address] PCP - General Physician Infantry Senior Sergeant 11/29/19 documented as of this encounter
--- OUTSIDE RECORDS SUMMARY | 2023-07-18 17:02 | XMS_ITS | Encounter Summary ---
Author Name Unknown Organization [facility] Address [address], [place] [address] Care Team Providers Care Printing Machine Mechanic Name Role Phone Briana Vazquez PA-C Primary Care Provider [phone] Encounter Details Date Type Department Care Team (Late st Contact Info) Description 12/14/2018 Correspondence None No Primary/Referring, Phy DME EQUIPMENT PROOF OF DELIVERY Social History Tobacco Use Types Packs/Day [...] on file documented as of this encounter Visit Diagnoses Not on filedocumented in this encounter Additional Health Concerns Infection Onset Date Last Indicated Resolved Time R/O COVID19 05/07/2023 05/07/2023 05/07/2023 10:3 4 AM DRYING RACK CHANGER documented as of this encounter Care Teams Printing Machine Mechanic Relationship Specialty Start Date End Date Briana Vazquez PA-C [address] [place] [address] PCP - General Physician Billing Control Clerk 11/29/19 documented as of this encounter
--- OUTSIDE RECORDS SUMMARY | 2023-07-18 17:02 | XMS_ITS | Encounter Summary ---
Author Name Unknown Organization [facility] Address [address] [place] [address] Care Team Providers Care Washer Carcass Name Role Phone Briana Vazquez PA-C Primary Care Provider [phone] Reason for Visit * Auth/Cert (Routine) Specialty [...] Expiration Date Visits Re quested Visits Authorized [id number] 1 1 Encounter Details Date Type Department Care Team (Late st Contact Info) Description 05/07/2023 5:30 AM VAT TENDER Ancillary Procedure [facility] [address] [address] Social History Tobacco Use Types Packs/Day Years [...] place to sleep or slept in a group home (including now)? No 05/07/2023 Sex and Gender Information Value Date Recorded Sex Assigned at Not on file Gender Identity Not on file Sexual Orientation Not on file documented as of this encounter Plan of Treatment Not on file documented as of this encounter Procedures Procedure Name Priority Date/Time Associated Diagnosis Comments CT ANGIO CHEST W IV CONT PE STUDY STAT 05/07/2023 5:47 AM VAT TENDER documented in this encounter Visit Diagnoses Not on filedocumented in this encounter Administered Medications Inactive Administered Medications - up to 3 most recent administrations Medication Order MAR Action Action Date Dose Rate Site iohexol (OMNIPAQUE 350) 350 MG/ML injection 100 mL 100 mL, Intravenous, ONCE, On Wed05/07/23 at 0615, For 1 dose Given 05/07/2023 5:48 AM VAT TENDER 100 mL documented in this encounter Care Teams Washer Carcass Relationship Specialty Start Date End Date Briana Vazquez PA-C [address] [place] [address] PCP - General Physician Systems Specialist 11/29/19 documented as of this encounter
--- OUTSIDE RECORDS SUMMARY | 2023-07-18 17:02 | XMS_ITS | Encounter Summary ---
Author Name Unknown Organization [facility] Address [address] [address] Care Team Providers Care Bessemer Regulator Name Role Phone Briana Vazquez PA-C Primary Care Provider [phone] Encounter Details Date Type Department Care Team (Late st Contact Info) Description 09/12/2015 Consent for Procedure/Treatme nt [facility] Department RH INFORMED CONSENT NEUROLEPTIC MEDICATIONS Social History Tobacco Use Types Packs/Day [...] COVID19 05/07/2023 05/07/2023 05/07/2023 10:3 4 AM ORTHOPEDIC SHOE FITTER documented as of this encounter Care Teams Bessemer Regulator Relationship Specialty Start Date End Date Briana Vazquez PA-C [address] [place] [address] PCP - General Physician Fiction And Nonfiction Writer Prose 11/29/19 documented as of this encounter
--- OUTSIDE RECORDS SUMMARY | 2023-07-18 17:02 | XMS_ITS | Encounter Summary ---
Author Name Unknown Organization [facility] Address [address], [place] [address] Care Team Providers Care Lab Asst Name Role Phone Briana Vazquez PA-C Primary Care Provider [phone] Reason for Visit * (Routine) - Incomplete Specialty Diagnoses / Procedures Referred By Pinky t Referred To Contact Procedures POC Basic Cardiac Shanta Kaur MD [address] [place] [address] Referral ID Status Reason Start Date Expiration Date V isits Requested Visits Authorized [id number] Incomplete 05/07/2023 08/05/2024 1 1 Encounter Details Date Type Department Care Team (Late st Contact Info) Description 05/07/2023 5:15 AM ESOL TEACHER Ancillary Procedure [facility] P[facility] [address] [place] [id number] Social History Tobacco Use Types Packs/Day Years [...] place to sleep or slept in a prison (including now)? No 05/07/2023 Sex and Gender Information Value Date Recorded Sex Assigned at Not on file Gender Identity Not on file Sexual Orientation Not on file documented as of this encounter Plan of Treatment Not on file documented as of this encounter Procedures Procedure Name Priority Date/Time Associated Diagnosis Comments POC US BASIC CARDIAC Routine 05/07/2023 5:13 AM ESOL TEACHER documented in this encounter Results * POC US Basic Cardiac (05/07/2023 5:13 AM ESOL TEACHER) Anatomical Region Laterality Modality Chest, Cardiac, US Cardiac Other Narrative 05/07/2023 11:08 AM ESOL TEACHER Aaron Patterson MD ? 05/07/2023 ??2:31 PM [facility] Point of Care Ultrasound Interpretation POC US Basic Cardiac Date/Time: 05/07/2023 11:08 AM Performed by: Aaron Patterson MD Authorized by: Shanta Kaur MD ?? Point of Care Ultrasound: Basic Cardiac Indications: Shortness of Breath and Syncope Window: Adequate for full imaging and interpretation Findings/ Impression (Within the context of limited exlks-[id number] ultrasound): Mildly Depressed LV Function, Right Ventricle Enlarged with positive D sign on parasternal short axis view concerning for elevated right-sided pressures, No Pericardial Effusion, and IVC Dilated Shanta Kaur MD RAD POC US documented in this encounter Visit Diagnoses Not on filedocumented in this encounter Care Teams Lab Asst Relationship Specialty Start Date End Date Briana Vazquez PA-C [address] [place] [address] PCP - General Physician Bakery Worker Conveyor Line 11/29/19 documented as of this encounter
--- OUTSIDE RECORDS SUMMARY | 2023-07-18 17:02 | XMS_ITS | Encounter Summary ---
Author Name Unknown Organization [facility] Address [address] [place] [address] Care Team Providers Care Reinforcing Steel Machine Operator Name Role Phone Briana Vazquez PA-C Primary Care Provider [phone] Encounter Details Date Type Department Care Team (Late st Contact Info) Description 07/29/2016 Refill Order [facility] [address] [place], [place] [phone] [place] [address] [place], [place] [id number] Social History Tobacco Use Types Packs/Day Years [...] Nursing Notes * Page Luther CMA - 07/29/2016 11:33 AM [...] COVID19 05/07/2023 05/07/2023 05/07/2023 10:3 4 AM OPERATIONS LIAISON documented as of this encounter Care Teams Reinforcing Steel Machine Operator Relationship Specialty Start Date End Date Briana Vazquez PA-C [address] [place] [address] PCP - General Physician Sewing Machine Operator Zipper 11/29/19 documented as of this encounter
--- OUTSIDE RECORDS SUMMARY | 2023-07-18 17:02 | XMS_ITS | Encounter Summary ---
Author Name Unknown Organization [facility] Address [address], [place] [address] Care Team Providers Care English Instructor Name Role Phone Briana Vazquez PA-C Primary Care Provider [phone] Encounter Details Date Type Department Care Team (Latest Contact Info) Description 04/03/2016 Correspondence None No Primary/Referring, Phy [...] COVID19 05/07/2023 05/07/2023 05/07/2023 10:3 4 AM ANIMAL SITTER documented as of this encounter Care Teams English Instructor Relationship Specialty Start Date End Date Briana Vazquez PA-C [address] [place] [address] PCP - General Physician Alarm Security Or Surveillance Monitor 11/29/19 documented as of this encounter
[2023-07-18 17:07] LABS: Basophils Percent Auto 0.1 % (0.0-3.0); Hematocrit 58.3 % (37.0-53.0); Hemoglobin* 20.3 gm/dL (13.5-17.5); Immature Granulocytes Pct Auto 0.3 %; Lymphocytes Percent Auto 6.7 % (20-44); Mean Corpuscular HGB Conc 35 gm/dL (32-36); Mean Corpuscular Hemoglobin 30 pg (26-34); Mean Corpuscular Volume 85 fL (80-100); Monocytes Percent Auto 14.4 % (0.0-11.0); Neutrophils Percent Auto 78.5 % (42.0-72.0); Platelet Count* 270 K/uL (140-440); RDW Coefficient of Variation % 14.9 % (11.5-15.5); Red Blood Count 6.86 m/uL (4.30-5.90); White Blood Count* 20.21 K/uL (4.50-11.00)
[2023-07-18 17:21] LABS: Troponin, Point-of-Care* 0.04 ng/ml (0.01-0.04)
[2023-07-18 17:34] LABS: Slide Review Reflex No
[2023-07-18] MEDS: LORazepam 2 MG/ML inj IVP ×2 (17:45→17:57)
[2023-07-18] MEDS: 0.9 % SODIUM CHLORIDE 1000 ml 1,000 ML IV (17:45)
[2023-07-18 18:01] VITALS: BP 144/89; PULSE 120; RESP 14; O2SAT 92
[2023-07-18 18:22] LABS: Lactate* 2.5 mmol/L (0.5-1.9)
[2023-07-18 18:31] VITALS: BP 151/102; PULSE 123; RESP 16; O2SAT 95
[2023-07-18 18:38] LABS: Chloride* 108 mmol/L (96-114)
[2023-07-18 18:39] LABS: Albumin* 5.1 g/dL (3.3-5.0); Sodium* 147 mmol/L (135-149)
[2023-07-18 18:40] LABS: Potassium* 3.4 mmol/L (3.6-5.1)
[2023-07-18 18:41] LABS: Creatinine* 3.5 mg/dL (0.5-1.5); Est. Creatinine Clearance* 27.64; Estimated Glomerular Filt Rate 20 ml/min
[2023-07-18 18:42] LABS: Alanine Aminotransferase* 38 U/L (4-50); Alkaline Phosphatase* 87 U/L (40-150); Aspartate Amino Transferase* 53 U/L (12-35); Bilirubin Direct* 0.2 mg/dL (0.0-0.5); Blood Urea Nitrogen* 46 mg/dL (7-30); Carbon Dioxide* 20 mmol/L (20-32); Glucose* 150 mg/dL (60-115)
[2023-07-18 18:43] LABS: Calcium* 10.3 mg/dL (8.4-10.6)
[2023-07-18 18:45] LABS: C Reactive Protein* 1.7 mg/dL (0.5-1.0)
[2023-07-18 18:46] LABS: Acetaminophen* < 10.0 ug/mL (10.0-30.0); Anion Gap 19 mEq/L (7-15); Ethanol* < 0.01 % (0.01-0.03)
[2023-07-18 18:53] LABS: NT Pro B Type NatriureticPept* 408 pg/mL
[2023-07-18 19:01] VITALS: PULSE 124; RESP 14; O2SAT 96
[2023-07-18 19:04] LABS: Salicylate* < 1.0 mg/dL (1.0-10)
[2023-07-18] MEDS: PIPERACILLIN/TAZOBACTAM 4.5 GM in 0.9 % SODIUM CHLORIDE Mini-bag 100 ML IVPB (19:13)
== END 2023-07-18 19:30 | disposition other institution (70) ==
PROVIDERS: Emergency Provider Family Medicine; PCP Family Medicine
DX: F20.0 Paranoid schizophrenia (principal); R45.1 Restlessness and agitation
CPT/HCPCS: 36415; 80048; 80076; 80143; 80179; 80306; 81001; 82077; 83605; 83880; 84484; 85025; 86140; 87040; 87086; 94761; 96361; 96372; 96374; 96375; 99285; 99291; J2060; J2543; J7030

== ENCOUNTER 2023-07-18 19:23 | Outpatient (CLI) | payer OTHER, MEDICAID, SELFPAY | END 2023-07-18 19:24 | disposition home or self-care (01) | LOC: AMB 07-22 15:08 | PROVIDERS: PCP Family Medicine; Visit Provider Family Medicine | DX: F29 Unspecified psychosis not due to a substance or known physiological condition (principal); R44.1 Visual hallucinations; D72.829 Elevated white blood cell count, unspecified | CPT/HCPCS: A0425; A0427 ==

== ENCOUNTER 2023-09-27 08:01 | Day surgery (SDC) | payer OTHER, MEDICAID, SELFPAY ==
[2023-09-27] VITALS (16 sets, daily range): BP systolic 114–152; BP diastolic 71–96; PULSE 68–77; RESP 14–16; TEMP 36.3–36.8; O2SAT 92–98
--- OUTSIDE RECORDS SUMMARY | 2023-09-27 08:03 | XMS_ITS | Clinical Summary ---
Author Organization [employer] [facility] Address [place], [place] [address] Care Team Providers Care Photo Printer Name Role Phone Pcp, No Primary Care Provider Unavailabl e Allergies No known active allergies Medications Medication Sig Dispensed Refills Start Date End Date Status testosterone cypionate (DEPO-TESTOSTERON E) 200 mg/mL injection Inject 200 mg intramuscular every 2 weeks. 09/02/2019 Active vardenafiL (LEVITRA) 20 mg tablet TAKE 1 TABLET BY MOUTH ONE HOUR PRIOR TO INTERCOURSE 06/08/2020 Active aspirin chewable 81 mg chewable tablet Chew 81 mg by mouth once daily with a meal. 08/19/2023 Active diclofenac (VOLTAREN) 75 mg delayed-release tabletIndications :Chronic left shoulder pain,Chronic low back pain, unspecified back pain laterality, unspecified whether sciatica present Take 1 Tablet (75 mg) by mouth two times daily with meals. For severe pain. Do not take other NSAIDs with this ( no ibuprofen and no naproxen). 180 Tablet 1 08/30/2023 Active amitriptyline (ELAVIL) 100 mg tabletIndications :Insomnia, idiopathic Take 1 Tablet (100 mg) by mouth at bedtime. 90 Tablet 1 08/30/2023 Active amLODIPine (NORVASC) 5 mg tabletIndications :Essential hypertension Take 1 Tablet (5 mg) by mouth once daily. For blood pressure. 90 Tablet 1 08/30/2023 Active atorvastatin (LIPITOR) 20 mg tabletIndications :Hypercholesterol emia Take 1 Tablet (20 mg) by mouth once daily. For Cholesterol. 90 Tablet 1 08/30/2023 Active OLANzapine (ZyPREXA) 10 mg tabletIndications :Insomnia, idiopathic Take 2 Tablets (20 mg) by mouth at bedtime. 180 Tablet 1 08/30/2023 Active gabapentin (NEURONTIN) 400 mg capsuleIndication s:Chronic left shoulder pain Take 3 Capsules (1,200 mg) by mouth three times daily. 540 Capsule 1 08/30/2023 Active metoprolol succinate (TOPROL XL) 100 mg Sustained-Release tabletIndications :Essential hypertension Take 1 Tablet (100 mg) by mouth once daily. 90 Tablet 1 08/30/2023 Active omeprazole (PRILOSEC) 20 mg Delayed-Release capsuleIndication s:Gastroesophagea l reflux disease without esophagitis Take 1 Capsule (20 mg) by mouth once daily before a meal. 30 Capsule 08/30/2023 Active prazosin (MINIPRESS) 2 mg capsuleIndication s:Drug-induced mood disorder (HC) Take 1 Capsule (2 mg) by mouth at bedtime. 90 Capsule 1 08/30/2023 Active QUEtiapine (SEROQUEL) 400 mg tabletIndications :Drug-induced mood disorder (HC),Insomnia, idiopathic Take 2 Tablets (800 mg) by mouth at bedtime. 180 Tablet 1 08/30/2023 Active rOPINIRole (REQUIP) 2 mg tabletIndications :Tremor Take 1 Tablet (2 mg) by mouth two times daily. 90 Tablet 1 08/30/2023 Active tamsulosin (FLOMAX) 0.4 mg capsuleIndication s:Lower urinary tract symptoms Take 1 Capsule (0.4 mg) by mouth once daily after a meal. For urinary symptoms. 90 Capsule 1 08/30/2023 Active traZODone (DESYREL) 100 mg tabletIndications :Schizophrenia, unspecified type (HC) Take 2 Tablets (200 mg) by mouth at bedtime. 60 Tablet 08/30/2023 Active methocarbamoL (ROBAXIN) 750 mg tabletIndications :Chronic low back pain, unspecified back pain laterality, unspecified whether sciatica present Take 1 Tablet (750 mg) by mouth every 8 hours if needed for Muscle Spasm. May make you drowsy. Use mostly just at night. 60 Tablet 2 09/10/2023 Active desonide (TRIDESILON) 0.05 % cream Apply topically to affected area(s) two times daily. 11/16/2022 Active ALPRAZolam (XANAX) 1 mg tablet Take 1 mg by mouth at bedtime if needed (sleep). 09/13/2023 Active propranoloL (INDERAL) 20 mg tabletIndications :Tremor Take 1 Tablet (20 mg) by mouth two times daily. 60 Tablet 5 09/23/2023 Active traZODone (DESYREL) 100 mg tabletIndications :Schizophrenia, unspecified type (HC) Take 2 tablets by mouth at bedtime. 60 tablet 10/07/2015 08/30/19 Discontinu ed(Reorder (E-cancel not sent)) omeprazole (PRILOSEC) 20 mg Delayed-Release capsuleIndication s:Gastroesophagea l reflux disease without esophagitis Take 1 capsule by mouth once daily before a meal. 30 capsule 10/07/2015 08/30/19 Discontinu ed(Reorder (E-cancel not sent)) gabapentin (NEURONTIN) 600 mg tablet TAKE ONE TABLET BY MOUTH THREE TIMES DAILY 12/12/2018 08/30/19 Discontinu ed(*Medica tion adjustment ) tamsulosin (FLOMAX) 0.4 mg capsule TAKE ONE CAPSULE BY MOUTH DAILY 12/12/2018 08/30/19 Discontinu ed(Reorder (E-cancel not sent)) atorvastatin (LIPITOR) 20 mg tablet Take 20 mg by mouth once daily. 08/07/2019 08/30/19 Discontinu ed(Reorder (E-cancel not sent)) escitalopram oxalate (LEXAPRO) 10 mg tablet Take 10 mg by mouth once daily. 08/28/2019 08/30/19 Discontinu ed(*Patien t states no longer taking) prazosin (MINIPRESS) 2 mg capsule Take 2 mg by mouth at bedtime. 08/28/2019 08/30/19 Discontinu ed(Reorder (E-cancel not sent)) buPROPion (WELLBUTRIN XL) 300 mg Extended-Release tablet Take 300 mg by mouth once daily. 08/30/19 Discontinu ed(*Patien t states no longer taking) QUEtiapine (SEROQUEL) 100 mg tablet Take 200 mg by mouth at bedtime. 08/28/2019 08/30/19 Discontinu ed(*Medica tion adjustment ) diclofenac (VOLTAREN) 75 mg delayed-release tablet TAKE ONE TABLET BY MOUTH TWICE DAILY 03/05/2020 08/30/19 Discontinu ed(Reorder (E-cancel not sent)) metoprolol succinate (TOPROL XL) 100 mg Sustained-Release tablet Take 100 mg by mouth once daily. 07/06/2020 08/30/19 Discontinu ed(Reorder (E-cancel not sent)) amitriptyline (ELAVIL) 100 mg tablet Take 100 mg by mouth at bedtime. 08/19/2023 08/30/19 Discontinu ed(Reorder (E-cancel not sent)) amLODIPine (NORVASC) 5 mg tablet Take 5 mg by mouth once daily. 08/19/2023 08/30/19 Discontinu ed(Reorder (E-cancel not sent)) mometasone (ELOCON) 0.1 % cream Apply 0.1 % topically to affected area(s) once daily. 08/19/2023 08/30/19 Discontinu ed(Reorder (E-cancel not sent)) rOPINIRole (REQUIP) 2 mg tablet Take 2 mg by mouth two times daily. 07/12/2023 08/30/19 Discontinu ed(Reorder (E-cancel not sent)) gabapentin (NEURONTIN) 400 mg capsule Take 1,200 mg by mouth three times daily. 08/19/2023 08/30/19 Discontinu ed(Reorder (E-cancel not sent)) QUEtiapine (SEROQUEL) 400 mg tablet Take 800 mg by mouth at bedtime. 08/19/2023 08/30/19 Discontinu ed(Reorder (E-cancel not sent)) mometasone (ELOCON) 0.1 % creamIndications: Seborrheic dermatitis apply topically to Seborrhe[facility] Dermatology. 15 g 2 08/30/2023 09/13/19 Discontinu ed(*Patien t states no longer taking) methocarbamoL (ROBAXIN) 750 mg tablet Take 750 mg by mouth every 6 hours if needed for Muscle Spasm. 08/19/2023 09/10/19 Discontinu ed(Reorder (E-cancel not sent)) Active Problems Problem Noted Date Diagnosed Date Chronic left shoulder pain 09/01/2023 Chronic low back pain 09/01/2023 Insomnia, idiopathic 09/01/2023 Essential hypertension 09/01/2023 Cervical spondylosis with radiculopathy 09/06/19 Neuropathy 09/30/2015 Drug-induced mood disorder 09/25/2015 Alcohol [...] ANKLE 09/23/1999 11/05/2005 HERPES, GENITAL 04/08/1999 11/05/2005 Encounters Date Type Department Care Team Description 09/27/2023 Refill [facility] [address] [place] [address] Brian Martínez MD Refill Request (Trazodone) 09/23/2023 2:40 PM CDT Preop Visit [facility] [address] [place] [address] Brian Martínez MD Preoperative Exam (DOS: 09/27/2023 [facility]/Dr Eevlyn Grant /Umbilical Hernia Repair) 09/23/2023 Travel 09/22/2023 Telephone [facility] [address] [place] [address] Brian Martínez MD Appointment (Pre op exam. Surgery is 09/27/23) 09/13/2023 12:30 PM CDT Office Visit [facility] [address] [place] [address] Evelyn Grant MD Consult (Umbilical hernia ) 09/13/2023 Travel 09/10/2023 Refill [facility] [address] [place] [address] Brian Martínez MD Refill Request (methocarbamoL (ROBAXIN) 750 mg tablet) 08/30/2023 1:50 PM CDT [facility] [address] [facility] [address] Brian Mart[facility] MD Hospital F/U (Post Hospital DOD: 08/20/2023/[facility] - Referral for Psychology, Chronic Pain ) 08/30/2023 Travel 08/27/2023 Telephone [facility] [address] [facility] [address] Brian Martínez MD Medication Management (medication fill request) from Last 3 Months Immunizations Name Administration Dates Next Due COVID-19 vaccine (Moderna 100mcg/0.5mL) BREEZY MORGAN 06/21/2020,05/24/2020 Hepatitis B (Adult) 12/10/2017,05/27/2017,2015 Influenza Virus, Unspecified 01/08/2006, 01/08/2005,01/04/2002,1999 Influenza, IIV3 (Age >=3 years) 01/09/20 06,01/08/2005,12/28/2002,2001,12/22/1999 Td (Age >=7 Years) 05/21/2003,07/22/1999 Td, Preservative Free (age > = 7 Years) 05/21/2003,07/22/1999 Tdap 09/14/2013,05/03/2012,05/01/2010 Zoster (Shingrix-RZV, recombinant) 01/20,11/15/2020,05/09/2018,2017 Family History Medical History Relation Name Comments Dementia Father Genetic Other 1 BACK PAIN Genetic Other 2 BACK PAIN~negat roxanna for anesthetic problems or CAD. Relation Name Status Comments Father Other 1 Other 2 Social History Tobacco Use Types Packs/Day Years Used Date Smoking Tobacco: Former Cigarettes Smokeless Tobacco: Never Tobacco Cessation:Counseling Given: Not Answered Comments:when he was 24 years old he quit Alcohol Use Standard Drinks/Week Comments Not Currently 5 (1 standard drink = 0.6 oz pur e alcohol) 3-4x a week 2-3x at a time PHQ-2 Answer Date Recorded PHQ-2 TOTAL SCORE 3 08/30/2023 Social Connections Answer Date Recorded Frequency of Communication with Friends and Fami ly 4 09/23/2023 Financial Resource Strain Answer Date R ecorded Difficulty of Paying Living Expenses 3 09/23/2023 Difficulty of Paying Living Expenses Not on file 09/23/2023 Food Insecurity Answer Date Recorded Worried About Running Out of Food in the Last Ye ar 1 09/23/2023 Transportation Needs Answer Date Record ed Lack of Transportation (Medical) 1 09/23/2023 Housing Stability Answer Date Recorded Unable to Pay for Housing in the Last Year 1 09/23/2023 Sex and Gender Information Value Date Recorded Sex Assigned at Not on file Gender Identity Not on file Sexual Orientation Not on file Obstetrics History Last Filed Vital Signs Vital Sign Reading Time Taken Comments Blood Pressure 139/80 09/23/2023 3:24 PM CDT Pulse 82 09/23/2023 2:50 PM CDT Temperature 36.8 ??C (98.2 ??F) 10/01/2020 2:11 PM CD T Respiratory Rate 14 09/08/2019 4:42 AM CDT Oxygen Saturation 84% 09/23/2023 2:50 PM CDT Inhaled Oxygen Concentration - - Weight 98.1 kg (216 lb 3.2 oz) 09/23/2023 2:50 P M CDT Height 185.4 cm (6' 1) 08/30/2023 1:58 PM CDT Body Mass Index 28.52 08/30/2023 1:58 PM CDT Plan of Treatment Upcoming Encounters Date Type Department Care Team (Late st Contact Info) Description 10/15/2023 10:45 AM CDT Orders Only [facility] [address] [place] [address] Lab, [facility] Maintenance Due Date Last Done Comments Pneumococcal series for age 6-64 (1 of 2 - PCV) 12/09/1971 HIV for age 15-65 1980 Hepatitis C screening for ag e 18-79 12/09/1983 Colonoscopy through age 75 2010 Lipids for age 45-75 2010 06/04/2003, 06/04/19 04 Tetanus booster 09/15/2023 09/14/2013, 04/09, 05/01/2010, Additional history exists Influenza for age 50-64 11/07/2023 01/09/20 06, 01/08/2006, 01/08/2005, Additional history exists BMI (ht and wt on same day) for age 18+ 08/29/2024 08/30/2023, 10/01/2020, 07/19/2020 Depression screening for age 12+ 08/29/2024 08/30/19 24 Tdap Completed 09/14/2013, 04/09, 05/01/2010 Zoster (shingles) series for age 50+ Completed 01/20/2021, 11/15/2020, 05/09/2018, Additional history exists COVID-19 vaccine series Completed 12/03/19, 11/27/2021, 07/17/2021, Additional history exists Medical Devices Implanted Type Area Solar Hot Water Installer Device Identifier Shelf Expiration Date Model / Serial / Lot [id number] Matrix 1cc Shauna Plus Paste Dbm Implanted:Qty: 1 on 09/07/2019 by Dane Wharton MD at [facility] Explanted:at [facility] (Quantity not on file) Spine [employer] Spine/Ortho 11/23/2020 [id number] / [id number] 1 / Spacer Cerv [id number] Vertestack Peek - [id number] Implanted:Qty: 1 on 09/07/2019 by Dane Wharton MD at [facility] Spine [employer] Spine/Ortho 04/06/2027 [id number] / / [id number] Spacer Cerv [id number] Vertestack Peek - [id number] Implanted:Qty: 1 on 09/07/2019 by Dane Wharton MD at [facility] Spine [employer] Spine/Ortho 10/28/2026 [id number] / / [id number] Screw Cerv Ant 4x17mm Atlantistranslational Fa Slf Drill - [id number] Implanted:Qty: 2 on 09/07/2019 by Dane Wharton MD at [facility] Spine [employer] Spine/Ortho [id number] / / Screw Cerv Ant 4x17mm Atlantistranslational Va Slf Drill - [id number] Implanted:Qty: 4 on 09/07/2019 by Dane Wharton MD at [facility] Spine [employer] Spine/Ortho [id number] / / Plate Cerv 2lvl 45mm [place] [employer] Elite Ant - [id number] Implanted:Qty: 1 on 09/07/2019 by Dane Wharton MD at [facility] Spine [employer] Spine/Ortho [id number] / / Procedures Procedure Name Priority Date/Time Associated Diagnosis Comments CHOLESTEROL,TOTAL Routine 06/04/2003 8:0 0 AM RESEARCH & ANALYTICS MANAGER from Last 3 Months or Most Recently Relevant to Health Maintenance Results * CHOLESTEROL,TOTAL (06/04/2003 8:00 AM RESEARCH & ANALYTICS MANAGER) CHOLESTEROL,TOT AL 160 110 - 199 mg/dL 06/04/2003 8:00 AM RESEARCH & ANALYTICS MANAGER Narrative 08/19/2003 12:05 AM CDT Ordered by [...] 1:25 PM 10/07/2015 2:42 PM Care Teams Photo Printer Relationship Specialty Start Date End Date Pcp, No . PCP - General 08/18/23
--- OUTSIDE RECORDS SUMMARY | 2023-09-27 08:03 | XMS_ITS | Clinical Summary ---
Author Organization [facility] Address [address] [address] Care Team Providers Care Recording Studio Set Up Worker Name Role Phone Briana Vazquez PA-C Primary Care Provider [phone] Source Comments You are receiving this document as you are listed as the primary care provider,follow-up provider, or the patient has been referred to you for consultation.This is in compliance with the Medicare andMedicaid EHR Incentive Program,which states Providers who transition their patient to another setting of careor provider of care or refers their patient to another provider of care shouldprovide summary care record for each transition of care or referral. [facility] Hospital[facility]Table Allergies Active Allergy Reactions Criticality Noted Date Comments Naltrexone Other, see comments 02/26/2023 Pt told RN he did not like it so he stopped taking it. Valproic Acid Other, see comments High 02/26/2023 Excessive sedation Medications Medication Sig Dispensed Refills Start Date End Date Status acetaminophen (TYLENOL) 500 MG tabletIndicatio ns:Pain Take 2 Tablets (1,000 mg) by mouth three times a day. Maximum acetaminophen dose is 4000 mg in 24 hours Indications: Pain 90 Tablet 08/19/2023 Active atorvastatin (LIPITOR) 10 MG tabletIndicatio ns:Hyperlipidem ia Take 2 Tablets (20 mg) by mouth every evening. Indications: High Amount of Fats in the Blood 28 Tablet 08/19/2023 Active gabapentin (NEURONTIN) 400 MG capsuleIndicati ons:RLS / chronic pain Take 3 Capsules (1,200 mg) by mouth three times a day. Indications: RLS / chronic pain 136 Capsule 08/19/2023 Active amLODIPine (NORVASC) 5 MG tabletIndicatio ns:Hypertension Take 1 Tablet (5 mg) by mouth daily. Indications: High Blood Pressure Disorder 14 Tablet 08/19/2023 Active aspirin 81 MG chewable tablet Chew and swallow 1 Tablet (81 mg) by mouth daily. 14 Tablet 08/19/2023 Active folic acid 1 MG tablet Take 1 Tablet (1 mg) by mouth daily. 14 Tablet 08/19/2023 Active lidocaine (ASPERCREAM) 4 % patchIndication s:pain Apply 3 Patches to skin daily. Leave on for up to 12 hours in a 24 hour period, then remove. Indications: pain 42 Patch 08/20/2023 Active metoprolol succinate (TOPROL XL) 50 MG 24 hour release tabletIndicatio ns:Hypertension Take 1 Tablet (50 mg) by mouth daily. Indications: High Blood Pressure Disorder 14 Tablet 08/20/2023 Active omeprazole (PRILOSEC) 20 MG capsuleIndicati ons:Gastroesoph ageal Reflux Disease Take 1 Capsule (20 mg) by mouth daily. Indications: Gastroesophageal Reflux Disease 14 Capsule 08/19/2023 Active QUEtiapine (SEROQUEL) 400 MG tabletIndicatio ns:SCAD Take 2 Tablets (800 mg) by mouth daily at bedtime. Indications: SCAD 28 Tablet 08/19/2023 Active amitriptyline (ELAVIL) 100 MG tabletIndicatio ns:Depression Take 1 Tablet (100 mg) by mouth daily at bedtime. Indications: Depression 14 Tablet 08/19/2023 Active mometasone (ELOCON) 0.1 % creamIndication s:Dermatitis Apply topically one time daily. Indications: Skin Inflammation. 45 g 08/19/2023 Active diclofenac (VOLTAREN) 1 % gel Apply 2 g topicallly to affected area on skin 4 times daily as needed for shoulder/neck pain. 50 g 08/19/2023 Active diphenhydrAMINE (BENADRYL) 50 MG capsuleIndicati ons:Insomnia Take 1 Capsule (50 mg) by mouth daily at bedtime. Indications: Trouble Sleeping 14 Capsule 08/19/2023 Active OLANZapine (ZYPREXA) 10 MG tabletIndicatio ns:psychosis Take 1 Tablet (10 mg) by mouth two times daily as needed for agitation, psychosis. Indications: psychosis 28 Tablet 08/19/2023 Active tamsulosin (FLOMAX) 0.4 MG CAPS capsule Take 1 Capsule (0.4 mg) by mouth daily after a meal. 14 Capsule 08/20/2023 Active thiamine 100 MG tablet Take 1 Tablet (100 mg) by mouth daily. 14 Tablet 08/20/2023 Active methocarbamol (ROBAXIN) 750 MG tabletIndicatio ns:Musculoskele justus Pain Take 1 Tablet (750 mg) by mouth 4 times daily as needed for up to 14 days. 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 08/03/2023 Chronic pain syndrome 07/23/2023 Alcohol use disorder, severe, dependence 024 Sedative, [...] 09/11/2015 Overview: Psychiatrist is Coretta [facility] at [facility] although does video calls with her 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 Alcohol use disorder 09/11/2015 Migraine headache 11/19/2009 Hypertension 02/27/2009 Hyperlipidemia with target LDL less than 130 Overview: ICD 10 Genital herpes 02/27/2009 Generalized headaches 02/27/2009 Chronic low back pain 02/27/2009 GERD (gastroesophageal reflux disease) 9 Encounters Date Type Department Care Team Description 07/20/2023 3:13 PM CDT - 08/23/2023 1:36 PM CDT Hospital Encounter NE[address] [place] [address] Kristin Rutledge PA-C Gray, Paul W, PA-C Boyou, Charlene K, MANAGER SECURITY, SOFTWARE ENGINEER ADVISOR Remi Hatch MD Methamphetamine use disorder, severe, dependence (HRC) (Primary Dx); Alcohol use disorder, severe, dependence (HRC); Sedative, hypnotic or anxiolytic use disorder, severe, dependence (HRC); Pain Discharge Disposition: Home 07/19/2023 10:05 AM CDT Ancillary Procedure [facility] [address] [place] [address] 07/18/2023 8:14 PM CDT - 07/20/2023 3:10 PM CDT Hospital Encounter RH S7 [address] [place] [address] Sánchez Ramírez, Camilo Rivas, Sarah Verde MD Robertson, Jason M, MD Shah, Shemal M, DO USAMA (acute kidney injury) (HRC) (Primary Dx); Intentional overdose, initial encounter (HRC); Agitation; Tachycardia; Hypertension, unspecified type (HRC); Methamphetamine use disorder, severe, dependence (HRC); Sedative, hypnotic or anxiolytic use disorder, severe, dependence (HRC); Alcohol use disorder, severe, dependence (HRC) Discharge Disposition: Inpatient Psychiatric Facility 07/18/2023 Partner ED HIM DEPARTMENT Provider, MD DEA Bailon [facility] 07/18/2023 from Last 3 Months Immunizations Name Administration [...] = 0.6 oz pur e alcohol) Rare [facility] Utilities Answer Date Recorded In the past 12 months has th e Kr[employer], gas, oil, or water DoYouRemember threatened to shut off services in your home? Patient declined 07/26/2023 Humiliation, Afraid, Rape, and Kick questionnair e Answer Date Recorded Fear of Current or Ex-Partner Not on file Emotionally Abused Not on file 07/26/2023 Within the last year, have y ou been kicked, hit, slapped, or otherwise physically hurt by your partner or ex-partner? Patient declined 07/26/2023 Within the last year, have y ou been raped or forced to have any kind of sexual activity by your partner or ex-partner? Patient declined 07/26/2023 Hunger Vital Sign Answer Date Recorded Within the past 12 months, y ou worried that your food would run out before you got the money to buy more. Patient declined Within the past 12 months, t he food you bought just didn't last and you didn't have money to get more. Patient declined PRAPARE - Transportation Answer Date Re corded In the past 12 months, has l ack of transportation kept you from medical appointments or from getting medications? Patient declined 07/26/2023 In the past 12 months, has l ack of transportation kept you from meetings, work, or from getting things needed for daily living? Patient declined 07/26/2023 Housing Stability Vital Sign Answer Leopoldo e Recorded In the last 12 months, was t here a time when you were not able to pay the mortgage or rent on time? Patient declined 07/26/19 24 In the last 12 months, how many places have you lived? 1 07/26/2023 In the last 12 months, was t here a time when you did not have a steady place to sleep or slept in a fci (including now)? Patient declined 07/26/2023 Sex and Gender Information Value Date Recorded Sex Assigned at Not on file Gender Identity Not on file Sexual Orientation Not on file Last Filed Vital Signs Vital Sign Reading Time Taken Comments Blood Pressure 151/90 08/23/2023 11:00 AM CDT Pulse 84 08/23/2023 8:12 AM CDT Temperature 36.6 ??C (97.9 ??F) 08/23/2023 8:12 AM CD T Respiratory Rate 18 08/23/2023 8:12 AM CDT Oxygen Saturation 98% 08/23/2023 8:12 AM CDT Inhaled Oxygen Concentration - - Weight 92.4 kg (203 lb 9.6 oz) 08/22/2023 7:30 A M CDT Height 185.4 cm (6' 1) 07/23/2023 1:00 PM CDT p er EHR Body Mass Index 26.86 07/23/2023 1:00 PM CDT Plan of Treatment Health Maintenance Due Date Last Done Comments Colon Cancer Screening Plan Due 1965 Medicare Welcome Visit 1965 PSA Screening Discussion 1965 Pneumococcal (1 - PCV) 12/09/1971 Diabetes Screening- (based on age and BMI) 06/21/2021 06/21/2018, 05/03/2017 DTaP/Tdap/Td (2 - Tdap) 05/03/2022 05/03/2012, 05/20 COVID-19 Vaccine ( season) 2022 11/27/2021, 07/17/2021, 02/05/2021, Additional history exists Influenza (#1) 2023 01/08/2006, 05/2004, 12/28/2002, Additional history exists Cholesterol 05/06/2028 05/07/2023, 04/1 08/2018, 12/10/2017, Additional history exists HIV Screening (Preventive [...] Associated Diagnosis Comments BASIC METABOLIC PANEL Routine 08/12/2023 8:13 AM CDT EXTRA LAVENDER TOP TUBE Routine 08/12/2023 8:10 AM CDT EXTRA LAVENDER TOP TUBE Routine 08/09/2023 8:37 AM CDT BASIC METABOLIC PANEL Routine 08/09/2023 8:36 AM CDT ECG 12-LEAD ROUTINE(LAB PERFORM) Routine 08/03/2023 8:20 AM CDT BASIC METABOLIC PANEL Routine 07/23/2023 5:13 PM CDT MAGNESIUM Routine 07/20/2023 9:05 AM CDT [...] VENOUS STAT 07/19/2023 12: 45 AM CDT BASIC METABOLIC PANEL STAT 07/19/2023 12:45 AM CDT INPATIENT TELEMETRY MONITORING Routine 07/19/2023 12:04 AM CDT [address]69 LACTATE, WHOLE BLOOD Routine 07/18/2023 10:18 PM [...] & REPRT STAT 07/18/2023 8:29 PM CDT LIPID PANEL & DIRECT LDL (IF NEEDED) Add-On 05/07/2023 12:06 PM FARM EQUIPMENT MAINTENANCE SUPERVISOR HGB A1C Routine 06/21/2018 12:06 PM CDT High risk medication use Screening, lipid HIV 1/2 AG/AB 4TH GEN Routine 05/27/2017 2:42 PM CDT Screening for viral disease HEPATITIS C ANTIBODY, WITH REFLEX Routine 05/27/2017 2:42 PM CDT Screening for viral disease from Last 3 Months or Most Recently Relevant to Health Maintenance Results * (ABNORMAL) Basic Metabolic Panel (08/12/2023 8:13 AM CDT) Only the most recent of6 resultswithin the time period is included. Sodium 138 136 - 145 mmol/L 08/12/2023 9:20 AM [facility] Potassium 4.3 3.5 - 5.1 mmol/L 08/12/2023 9:20 AM [facility] Comment:Specimen slightly he molyzed. Hemolysis may affect result. Chloride 103 98 - 109 mmol/L 08/12/2023 9:20 AM [facility] CO2 24 20 - 29 mmol/L 08/12/2023 9:20 AM [facility] Anion Gap 11 6 - 16 mmol/L 08/12/2023 9:20 AM [facility] Calcium 10.1 8.4 - 10.4 mg/dL 08/12/2023 9:20 AM [facility] BUN 19 7 - 26 mg/dL 08/12/2023 9:20 [facility] Creatinine 1.19(H) 0.73 - 1.18 mg/dL 08/12/2023 9:20 [facility] Glucose 105(H) 70 - 100 mg/dL 08/12/2023 9:20 AM [facility] Comment:The given reference range is for the fasting state. Non-fasting reference range for glucose is 70 - 180 mg/dL. GFR, Estimated >60 >60 mL/min/1.7 3m2 08/12/2023 9:20 [facility] Blood Venipuncture / Unknown 08/12/2023 8:13 AM CDT 08/12/2023 8:49 AM CDT Kristin Rutledge PA-C LAB_[address] * Extra Lavender top tube (08/12/2023 8:10 AM CDT) Only the most recent of2 resultswithin the time period is included. Extra Lavender Top Drawn Specimen will be held for 3 days 08/12/2023 10:00 AM [facility] Blood Venipuncture / Unknown 08/12/2023 8:10 AM CDT 08/12/2023 8:50 AM CDT Cristo Lozano MD LAB_1 Performing Organization Address [facility] Co de Phone Number [address] * ECG 12-Lead Routine (Lab perform) (08/03/2023 8:20 AM CDT) Pathologist [facility] [place] EKG Completed 08/03/2023 11:00 AM [facility] Other Specimen Type Non-blood Collection / Unknown 08/03/2023 8:20 AM CDT 08/03/2023 9:05 AM CDT Jaden Wetzel PA-C LAB_1 Performing Organization Address [facility] de Phone Number [address] * (ABNORMAL) Comprehensive Metabolic Panel (07/20/2023 9:05 AM CDT) Pathologist [facility] [place] Sodium 141 136 - 145 mmol/L 07/20/2023 9:44 AM [facility] Potassium 4.1 3.5 - 5.1 mmol/L 07/20/2023 9:44 AM T [facility] Comment:Specimen slightly he molyzed. Hemolysis may affect result. Chloride 104 98 - 109 mmol/L 07/20/2023 9:44 AM [facility] CO2 25 20 - 29 mmol/L 07/20/2023 9:44 AM [facility] Anion Gap 12 6 - 16 mmol/L 07/20/2023 9:44 AM T [facility] Calcium 9.7 8.4 - 10.4 mg/dL 07/20/2023 9:44 AM [facility] BUN 15 7 - 26 mg/dL 07/20/2023 9:44 AM [facility] Creatinine 1.10 0.73 - 1.18 mg/dL 07/20/2023 9:44 AM [facility] Alkaline Phosphatase 73 40 - 150 U/L 07/20/2023 9:44 AM [facility] AST (SGOT) 87(H) 10 - 40 U/L 07/20/2023 9:44 AM [facility] Comment:Specimen slightly he molyzed. Hemolysis may affect result. ALT (SGPT) 43 <=55 U/L 07/20/2023 9:44 AM [facility] Bilirubin, Total 1.1 0.2 - 1.2 mg/dL 07/20/2023 9:44 AM [facility] Protein, Total 7.3 6.4 - 8.3 g/dL 07/20/2023 9:44 AM [facility] Albumin 3.5 3.5 - 5.0 g/dL 07/20/2023 9:44 AM [facility] Glucose 83 70 - 100 mg/dL 07/20/2023 9:44 AM [facility] Comment:The given reference range is for the fasting state. Non-fasting reference range for glucose is 70 - 180 mg/dL. GFR, Estimated >60 >60 mL/min/1.7 3m2 07/20/2023 9:44 AM [facility] Blood Venipuncture / Unknown 07/20/2023 9:05 AM CDT 07/20/2023 9:10 AM [facility] Sarah Aguirre MD LAB_1 Performing Organization Address City/State/[facility] Co de Phone Number [address] [address], [facility] * (ABNORMAL) Complete Blood Count-No Diff (07/20/2023 9:05 AM [facility]) Only the most recent of3 resultswithin the time period is included. WBC 8.8 3.5 - 10.5 x10(9)/L 07/20/2023 9:47 AM [facility] RBC 5.95(H) 4.32 - 5.72 x10(12)/L 07/20/2023 9:47 AM [facility] Hemoglobin 17.7(H) 13.5 - 17.5 g/dL 07/20/2023 9:47 AM [facility] HCT 52.6(H) 38.8 - 50.0 % 07/20/2023 9:47 AM [facility] MCV 88.4 80.0 - 100.0 fL 07/20/2023 9:47 AM [facility] MCH 29.7 27.6 - 33.3 pg 07/20/2023 9:47 AM [facility] MCHC 33.7 31.5 - 35.2 g/dL 07/20/2023 9:47 AM [facility] RDW 13.9 11.9 - 15.5 % 07/20/2023 9:47 AM [facility] Platelets 178 150 - 450 x10(9)/L 07/20/2023 9:47 AM [facility] Automated NRBC 0 <=0 /100 WBC 07/20/2023 9:47 AM [facility] Blood Venipuncture / Unknown 07/20/2023 9:05 AM CDT 07/20/2023 9:10 AM CDT Sarah Aguirre MD LAB_[address] * Magnesium (07/20/2023 9:05 AM CDT) Only the most recent of2 resultswithin the time period is included. Magnesium 2.1 1.6 - 2.6 mg/dL 07/20/2023 9:44 AM [facility] Blood Venipuncture / Unknown 07/20/2023 9:05 AM CDT 07/20/2023 9:10 AM CDT Devendra Hensley DO LAB_1 Performing Organization Address [facility]/ZIP Co de Phone Number [address] * (ABNORMAL) CK, Total (07/20/2023 9:05 AM CDT) Only the most recent of3 resultswithin the time period is included. CK, Total 375(H) 30 - 200 U/L 07/20/2023 9:44 AM CDT [facility] Blood Venipuncture / Unknown 07/20/2023 9:05 AM CDT 07/20/2023 9:10 AM CDT Sarah Aguirre MD LAB_1 Performing Organization Address City/[facility]/ZIP Co de Phone Number [facility] [address] [place] [address], [facility] * INPATIENT TELEMETRY MONITORING (07/20/2023 7:29 AM CDT) Only the most recent of4 resultswithin the time period is included. Pathologist [facility] [place] TELE P-R INTERVAL 0.17 [facility]USE [facility] TELE QRS DURATION 0.08 [facility] TELE R-R INTERVAL 0.66 [facility] TELE QT 0.32 [facility] TELE INTERPRETATION Sinus Rhythm RK RN MUSE [facility] 07/20/2023 7:29 AM CDT Narrative [facility] - 07/20/2023 10:15 AM CDT Sinus Rhythm ??JEANNINE RN Interface Provider EKG Performing Organization Address [facility] Co de Phone Number MUSE [address] [place] [address] * C.Difficile Toxin,Molecular Detection,This order expires in 24 hours. Do NOT collect after: 07/20/2023; at: 3:15 PM (07/19/2023 6:28 PM CDT) Pathologist [facility] [place] C.difficile by PCR Not Detected Not Detected 07/19/2023 7:40 PM CDT [facility] Stool Non-blood Collection / Unknown 07/19/2023 6:28 PM CDT 07/19/2023 6:41 PM CDT Narrative [facility] - 07/19/2023 7:40 PM CDT Comment: A single negative test for C. difficile means the likelihood this organism is causing the diarrheal illness is extremely low. ??Therefore repeat testing within 7 days of the same diarrheal episode is strongly discouraged. Sarah Aguirre MD LAB_[address] [address], [facility] * (ABNORMAL) Benzodiazepines, Urine, Quantitative (07/19/2023 6:26 PM CDT) Clonazepam Metab 7-Aminoclonaze mitzi, urine Not Detected [...] Confirmed Positive(A) Not Detected 07/21/2023 10:01 AM [facility] Nordiazepam, urine Confirmed Positive(A) Not Detected 07/21/2023 10:01 AM T [facility] Oxazepam, urine Not Detected Not Detected 07/21/2023 10:01 AM T [facility] Temazepam, urine Confirmed Positive(A) Not Detected 07/21/2023 10:01 AM T [facility] Qummn-FB-Vifnm zolam, urine Not Detected Not Detected 07/21/2023 10:01 AM [facility] Urine URINE SPECIMEN COLLECTION, CLEAN CATCH / Unknown Non-blood Collection / Unknown 07/19/2023 6:26 PM CDT 07/19/2023 6:42 PM CDT [facility] - 07/21/2023 10:01 AM CDT The absence [...] developed and its performance characteristics validated by [facility]. It has not been cleared nor approved by the FDA. Genet Treadwell PA-C LAB_1 Performing Organization Address [facility]/ZIP Co de Phone Number [address] * (ABNORMAL) Amphetamines Confirmation, Urine (07/19/2023 6:26 [...] 10:01 AM CDT [facility] Urine URINE SPECIMEN COLLECTION, CLEAN CATCH / Unknown Non-blood Collection / Unknown 07/19/2023 6:26 PM CDT 07/19/2023 6:42 PM CDT Narrative [facility] - 07/21/2023 10:01 AM CDT The absence [...] developed and its performance characteristics validated by [facility]. It has not been cleared nor approved by the FDA. Genet LUNA-C LAB_1 Performing Organization Address [facility] [place] [address], [facility] * (ABNORMAL) Rapid Drug Panel, Urine (with Confirmation) with THC (07/19/2023 6:26 PM CDT) Amphetamines Screen Presumptive Positive(A) Not Detected 07/19/2023 7:06 PM CDT [facility] Barbiturates Screen Not Detected Not Detected 07/19/2023 7:06 PM [facility] Benzodiazepines Screen Presumptive Positive(A) Not Detected 07/19/2023 7:06 PM [facility] Buprenorphine Screen Not Detected Not Detected 07/19/2023 7:06 PM [facility] Cocaine Metabolite Screen Not Detected Not Detected 07/19/2023 7:06 PM [facility] Methadone Screen Not Detected Not Detected 07/19/2023 7:06 PM [facility] Opiates Screen Not Detected Not Detected 07/19/2023 7:06 PM [facility] Oxycodone Screen Not Detected Not Detected 07/19/2023 7:06 PM [facility] Phencyclidine (PCP) Screen Not Detected Not Detected 07/19/2023 7:06 PM [facility] THC (Marijuana) Metab Screen Not Detected Not Detected 07/19/2023 7:06 PM [facility] Creatinine, Urine, Random 42 >20 mg/dL 07/19/2023 7:06 PM [facility] Urine URINE SPECIMEN COLLECTION, CLEAN CATCH / Unknown Non-blood Collection / Unknown 07/19/2023 6:26 PM CDT 07/[facility]23 6:42 [facility] 07/19/2023 7:06 PM CDT The absence of [...] or employment use. Genet Treadwell PA-C LAB_[address] [address], [facility] * (ABNORMAL) Potassium (07/19/2023 4:29 PM CDT) Potassium 3.4(L) 3.5 - 5.1 mmol/L 07/19/2023 4:58 PM [facility] Comment:Specimen slightly he molyzed. Hemolysis may affect result. Blood Venipuncture / Unknown 07/19/2023 4:29 PM CDT 07/19/2023 4:35 PM CDT Sarah Aguirre MD LAB_[address] [address], [facility] * CT Head WO IV Cont (07/19/2023 12:14 PM CDT) Anatomical Region Laterality Modality Head Computed Tomogra phy 07/19/2023 12:1 4 PM CDT Narrative 07/19/2023 12:49 PM CDT EXAM: CT HEAD WO IV CONT LOCATION: [facility] DATE: 07/19/2023 INDICATION: Hallucinations, confusion, unknown baseline and recent fall (at home). Concern mass vs bleed. COMPARISON: None. TECHNIQUE: Routine CT Head without IV contrast. Multiplanar reformats. Dose reduction techniques were used. FINDINGS: INTRACRANIAL CONTENTS: No finding for intracranial hemorrhage, mass, or acute infarct. Ventricles, sulci, and cisterns are unremarkable size for age. Normal wetzel-white matter differentiation. No mass effect or midline [...] EXAM: CT HEAD WO IV CONT LOCATION: [facility] DATE: 07/19/2023 INDICATION: Hallucinations, confusion, unknown baseline and recent fall(at home). Concern mass vs bleed. COMPARISON: None. TECHNIQUE: Routine CT Head without IV contrast. Multiplanar reformats.Dose reduction techniques were used. FINDINGS: INTRACRANIAL CONTENTS: No finding for intracranial hemorrhage, mass, oracute infarct. Ventricles, sulci, and cisterns are unremarkable size forage. Normal wetzel-white matter differentiation. No mass effect or midlineshift. [...] Sarah Aguirre MD LAB_1 Performing Organization Address City/[facility] Co de Phone Number [address] * TSH (07/19/2023 5:47 AM CDT) [facility] TSH, Sensitive 0.57 0.30 - 4.50 uIU/mL 07/19/2023 10:36 AM CDT [facility] Blood Venipuncture / Unknown 07/19/2023 5:47 AM CDT 07/19/2023 6:06 AM CDT Sarah Aguirre MD LAB_1 Performing Organization Address City/[facility]/ZIP Co de Phone Number [address] * (ABNORMAL) Blood Gas, Venous (07/19/2023 12:45 AM CDT) Pathologist [facility] PH, Venous 7.41 7.31 - 7.41 07/19/2023 12:54 AM [facility] PCO2, Venous 46 40 - 52 mmHg 07/19/2023 12:54 AM [facility] PO2, Venous 32 30 - 50 mmHg 07/19/2023 12:54 AM [facility] HCO3, Calculated 28.9 23.0 - 30.0 mmol/L 07/19/2023 12:54 AM [facility] O2 Saturation, Measured, Venous 59.5(L) 60.0 - 80.0 % 07/19/2023 12:54 AM [facility] Base Excess, Calculated 3.1(H) -2.0 - 2.0 mmol/L 07/19/2023 12:54 AM [facility] Blood Venipuncture / Unknown 07/19/2023 12:45 AM CDT 07/19/2023 12:50 AM CDT Sánchez Ramírez DO LAB_1 Performing Organization Address [facility] Co de Phone Number [address] * (ABNORMAL) Lactate Panel, Venous POCT (07/18/2023 10:18 PM CDT) Lactate, Whole Blood 0.78 0.50 - 2.00 mmol/L 07/18/2023 10:21 PM [facility] PO2, Venous 129(H) 30 - 50 mmHg 07/18/2023 10:21 PM [facility] Performing Location [facility] ED B 07/18/2023 10:21 PM T [facility] Blood 07/18/2023 10:1 8 PM CDT 07/18/2023 10:21 PM CDT Sánchez Ramírez DO LAB_1 Performing Organization Address [facility] Co de Phone Number [address] * Blood Type second draw (07/18/2023 8:50 PM CDT) ABO O 07/18/2023 9:34 PM CDT [facility] RH Positive 07/18/2023 9:34 PM CDT [facility] Blood Venipuncture / Unknown 07/18/2023 8:50 PM CDT 07/18/2023 9:07 PM CDT Hilary Reyna MD LAB_1 Performing Organization Address City/State/[facility] Co de Phone Number [facility] [address] [place] [address] * Extra Blue top tube (07/18/2023 8:45 PM CDT) Extra Blue Top Drawn Specimen will be held for 24 hours 07/18/2023 10:01 PM CDT [facility] Blood 07/18/2023 8:45 PM CDT 07/18/2023 9:00 PM CDT Cristo Lozano MD LAB_1 Performing Organization Address [facility] de Phone Number [address] * Extra Natoma/BB Hold (07/18/2023 8:45 PM CDT) Extra Natoma/Bank Tube Drawn Received in BB 07/18/2023 9:06 PM CDT [facility] Blood 07/18/2023 8:45 PM CDT 07/18/2023 8:59 PM CDT Cristo Lozano MD LAB_1 Performing Organization Address [facility] Phone [facility] [address] [place] [address] * (ABNORMAL) Beta Hydroxybutyrate (07/18/2023 8:44 PM CDT) Beta Hydroxybutyrate 1.78(H) 0.02 - 0.27 mmol/L 07/18/2023 10:47 PM CDT [facility] Blood Venipuncture / Unknown 07/18/2023 8:44 PM CDT 07/18/2023 8:54 PM CDT Sánchez Ramírez DO LAB_1 Performing Organization Address [facility] Co de Phone Number [address] * Acetaminophen Level (07/18/2023 8:44 PM CDT) Acetaminophen <3 <=3 mcg/mL 07/18/2023 9:22 PM CDT [facility] Comment:This may be a toxic clinical scenario, depending on ingestion time and comorbidities. Contact the Toxicology Service with questions. Blood Venipuncture / Unknown 07/18/2023 8:44 PM CDT 07/18/2023 8:54 PM CDT Sánchez Ramírez DO LAB_1 Performing Organization Address [facility] de Phone Number [address] * Alcohol (ethyl) Level (07/18/2023 8:44 PM CDT) Ethyl Alcohol <0.01 <=0.01 g/dL 07/18/2023 9:22 PM CDT [facility] Blood Venipuncture / Unknown 07/18/2023 8:44 PM CDT 07/18/2023 8:54 PM CDT [facility] - 07/18/2023 9:22 PM CDT For medical purposes only; not valid for forensic, legal, or employment use. Sánchez Whitmoremaria luisa COFFEY LAB_1 Performing Organization Address [facility] de Phone Number [address] * Salicylate Level (07/18/2023 8:44 PM CDT) Salicylate <5 <=5 mg/dL 07/18/2023 9:22 PM T [facility] Comment:This may be a toxic clinical scenario, depending on age, kidney function, and ingestion time. Contact the Toxicology service with questions. Blood Venipuncture / Unknown 07/18/2023 8:44 PM CDT 07/18/2023 8:54 PM CDT Sánchez Ramírez DO LAB_1 Performing Organization Address [facility] Co de Phone Number [address] * Phosphorus (07/18/2023 8:44 PM CDT) Phosphorus 3.9 2.3 - 4.7 mg/dL 07/18/2023 10:47 PM CDT [facility] Blood Venipuncture / Unknown 07/18/2023 8:44 PM CDT 07/18/2023 8:54 PM CDT Sánchez Viera Desiree COFFEY LAB_1 Performing Organization Address City/[facility]/ZIP Co de Phone Number [facility] [address] [place] [address], [facility] * ECG 12-Lead STAT (07/18/2023 8:29 PM CDT) Ventricular Rate 120 BPM [facility] Atrial Rate 120 BPM [facility] P-R Interval 144 ms M[facility] QRS Duration 84 ms MUSE GHP QT 328 ms MUSE GHP QTc 463 ms MUSE GHP P [place] 57 degrees MUSE GHP R [place] 34 degrees MUSE GHP T [place] 171 degrees MUSE GHP 07/18/2023 8:29 PM [...] Elo Benito MD EKG Performing Organization Address City/[facility]/ZIP Co de Phone Number MUSE [facility] [address] [place] [address] * (ABNORMAL) Lipid Panel & Direct LDL (if Needed) (05/07/2023 12:06 PM [employer]INTE[employer] SUPER[employer]) Cholesterol 91 0 - 199 mg/dL 05/07/2023 3:44 PM [employer] MAINTENANCE SUPERVISOR [facility] Triglyceride 77 <=149 mg/dL 05/07/2023 3:44 PM [facility] HDL Cholesterol 31(L) >=40 mg/dL 4 3:44 PM [facility] LDL, Calculated 45 <130 mg/dL 4 3:44 PM [facility] Non HDL Chol, Calculated 60 <=159 mg/dL 05/07/2023 3:44 PM [facility] Cholesterol/HDL Ratio 2.9 <=5.0 05/07/2023 3:44 PM [facility] Blood Venipuncture / Unknown 05/07/2023 12:06 PM [employer] MAINTENANCE SUPERVISOR 05/07/2023 12:13 PM [employer] MAINTENANCE SUPERVISOR Zaki Velásquez MD LAB_[id number] [place] [address] * Hgb A1C (06/21/2018 12:06 PM CDT) Hemoglobin A1C 5.0 <=5.6 % 06/21/2018 3:25 PM CDT [facility] Blood Venipuncture / Unknown 06/21/2018 12:06 PM CDT 06/21/2018 12:06 PM CDT Coretta Hawkins APRN, CNP LAB_1 Performing Organization Address City/[facility]/ZIP Co de Phone Number [facility] [address] [place] [address] [phone] * HIV 1/2 Ag/Ab 4th Generation (05/27/2017 2:42 PM CDT) HIV 1/2 AG/AB 4thGEN Negative (Non Reactive) [facility] Comment:HIV-1 p24 Ag and HIV -1/HIV-2 Ab not detected. 05/27/2017 2:42 PM CDT 05/27/2017 2:44 PM CDT Narrative [facility] - 05/27/2017 7:17 PM CDT Performed at [facility], [address] ??[address] Briana Vazquez PA-C LAB_1 Performing Organization Address City/[facility] Co de Phone Number [employer] [phone] * Hepatitis C Antibody, with Reflex (05/27/2017 2:42 PM CDT) Anti-HCV Negative (Non Reactive) [facility] Comment: Antibodies to HCV not detected. Does not exclude the possibility of exposure to HCV. 05/27/2017 2:42 PM CDT 05/27/2017 2:44 PM CDT Narrative [facility] - 05/27/2017 6:44 PM CDT Performed at [facility], [address] [place] [address] ??[id number] Briana Vazquez PA-C LAB_1 Performing Organization Address [facility] Co de Phone Number [employer] [phone] from Last 3 Months or Most Recently Relevant to Health Maintenance Advance Directives * Full Code (Latest Code Status on File) Date Activated Date Inactivated Comments 07/20/2023 4:24 PM 08/23/2023 3:43 PM * Full Code Date Activated Date Inactivated Comments 07/18/2023 11:50 PM 07/20/2023 3:13 PM * Full Code Date Activated Date Inactivated Comments 05/08/2023 6:42 PM 05/10/2023 2:26 PM * Full Code Date Activated Date Inactivated Comments 05/07/2023 11:14 AM 05/08/2023 6:31 PM * Full Code Date Activated Date Inactivated Comments 09/11/2015 5:39 PM 09/18/2015 2:12 PM 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
--- OUTSIDE RECORDS SUMMARY | 2023-09-27 08:04 | XMS_ITS | Encounter Summary ---
Author Organization [facility] Address [address], [place] [address] Care Team Providers Care Operating Systems Programmer Name Role Phone Briana Vazquez PA-C Primary Care Provider [phone] Reason for Referral * Consult/Transfer Care (Routine) Specialty Diagnoses / Procedures Referred By Pinky osorio Referred To Contact [address] [address] Referral ID Status Reason Start Date Expiration Date Visits Re quested Visits Authorized Scheduling Instructions This order is your clinician's recommendation for a service and is not an insurance referral which authorizes payment. The recommended service and/or location may not be covered by your insurance plan. Please call the number on your insurance card to find out your specific benefits and coverage for the recommended services and/or location. If you need help scheduling the recommended services, please ask your clinician's staff to assist you. Question Answer Appointment Urgency? Non-Urgent Reason for request? Intake Psychiatry Requested Services? Medication Management - Psychiatry Pt aware and agrees to this order: Confirmed with patient Patient has received or is currently receiving outside behavioral health services? Yes - Please get release of information Outpatient Appt Need? Hospital Follow up Comments WednesdayAugust 29 @ 11:00am [email or web address]; to (do) [facility]: Star Blatnon DNP, SUTURE POLISHER, PMHNP-BC [address] [place] [address] ?? [phone] Clinic will email you your intake paperwork prior to appointment . Please call Clinic if you need to reschedule appointment. Bring your ID and insurance card to appointment * Consult/Transfer Care (Routine) Specialty Diagnoses / Procedures Referred By Pinky osorio Referred To Contact [address] [address] Referral ID Status Reason Start Date Expiration Date Visits Re quested Visits Authorized Scheduling Instructions Your clinician has recommended an appointment with [facility] for your ongoing patient care. You can quickly make your appointment online at [facility]/schedule. You can also call [phone] for help scheduling your appointment. We suggest you call your health insurance company about your coverage and benefits for this appointment. Question Answer What type of follow up? IP Discharge Appointment Urgency? Non-Urgent Reason for visit? Hospital discharge follow-up/ Establish PCP Comments . [facility] APPOINTMENT Date: August Time: 1:15pm Provider: Dr. Antoine Dhillon [address] [address] This is a hospital discharge/ establishing primary care appointment with Dr. Dhillon. Your provider will refer you to psychiatry and/or therapy if needed/requested at the time of your appointment. Please make sure to bring a copy of your photo ID and insurance card to your appointment. * Consult/Transfer Care (Routine) - New Request Specialty Diagnoses / Procedures Referred By Pinky osorio Referred To Contact Diagnoses Alcohol use disorder, severe, dependence (HRC) Bossman Franco MD [address] [place] [id number] Referral ID Status Reason Start Date Expiration Date V isits Requested Visits Authorized [id number] New Request 08/09/2023 11/07/2024 1 1 Scheduling Instructions Your clinician [facility]. You may call [phone] to schedule your appointment. We suggest you [...] Reason for visit? alcohol and methamphetamine * Consult/Transfer Care (Routine) - New Request Specialty Diagnoses / Procedures Referred By Contbarry osorio Referred To Contact Diagnoses Methamphetamine use disorder, severe, dependence (HRC) Alcohol use disorder, severe, dependence (HRC) Sedative, hypnotic or anxiolytic use disorder, severe, dependence (HRC) Bossman Franco MD [address] [place] [address] Referral ID Status Reason Start Date Expiration Date V isits Requested Visits Authorized [id number] New Request 08/06/2023 11/04/2024 1 1 Scheduling Instructions Your clinician has recommended an appointment with [facility]. You may call [phone] to schedule your appointment. We suggest you [...] requirement? Confirmed with patient Reason for visit? alcohol, meth and xanax. Reason for Visit * Auth/Cert (Routine) Specialty Diagnoses / Procedures Referred By Contbarry t Referred To Contact Diagnoses Agitation . Referral ID Status Reason Start Date Expiration Date Visits Re quested Visits Authorized [id number] 1 1 Encounter Details Date Type Department Care Team (Latest Contact Info) Description 07/20/2023 3:13 PM CDT - 08/23/2023 1:36 PM CDT Hospital Encounter [facility] NE4 [address] [place] [id number] Kristin Rutledge PA-C [address] [place] [address] Jaden Wetzel PA-C [address] [place] [address] Charlene Lee, SUTURE POLISHER, SAND MILLER [address] [place] [address] Remi Hatch MD [address] [place] [address] Methamphetamine use disorder, severe, dependence (HRC) (Primary Dx); Alcohol use disorder, severe, dependence (HRC); Sedative, hypnotic or anxiolytic use disorder, severe, dependence (HRC); Pain Discharge Disposition: Home Social History Tobacco Use Types Packs/Day Years Used Date Smoking Tobacco: Former Cigarettes 0.5 3 Cigars Smokeless Tobacco: Never Comments:Occasional cigar Alcohol Use Standard Drinks/Week Comments Yes 0 (1 standard drink = 0.6 oz pur e alcohol) Rare [facility] Utilities Answer Date Recorded In the past 12 months has e [employer], or water [employer] threatened to shut off services in your [...] place to sleep or slept in a care home (including now)? Patient declined 07/26/2023 Sex and [...] Mass Index 26.86 07/23/2023 1:00 PM CDT documented in this encounter Discharge Summaries * Jaden Wetzel PA-C - 08/23/2023 11:45 AM CDT Images from the original note were not included. [facility] DISCHARGE SUMMARY Admission Date and Time: 07/20/2023 4:24 PM Discharge Date: 08/23/2023 Attending Practitioner: Jaden Wetzel PA-C Discharge Diagnoses Schizoaffective Disorder, Bipolar Type Methamphetamine Use Disorder, Severe Alcohol Use Disorder, Severe Reason for Hospitalization History of Present Illness taken from admission note: Nicanor Alvarado is a 57 y.o. male who has been admitted for psychiatric stabilization in [facility] Medicine. The patient is being admitted on [...] presented to the ED today from the [facility] for evaluation of altered mental status and possible ingestion. Pt isunable to provide any history due to his altered mental status HPI taken from ED notes and signout. Per ED note: Patient came from home, was picked up by [facility], multiple pill bottles surrounding the patient, more than 15, unsure of what the patient took, patient was altered and did not provide much history. Had a low-grade temperature of 99?? with a white count of 20, given a dose of Zosyn. Transferred here to [facility] for further evaluation. 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 He said he was not really sure about the events [employer]. He said he had 2 children and [...] referring to self medicating. He used methamphetamine [employer]. He said he has +AH at his [...] denied having SI and he denied the [employer] event as a SA. He spoke of [...] or opioid. He denied HI and VH. Chemical Dependency History, Past Psychiatric History, Family History and Past Medical History: SeeAdmission Note completed by Kristin Rutledge PA-C on 07/21/23. Lab Studies, EKG & other diagnostic testing Basic Metabolic Panel Component Ref Range & Units 11 d ago (08/12/23) 2 wk ago (08/09/23) 1 mo ago (07/23/23) 1 mo ago (07/20/23) 1 mo ago (07/19/23) 1 mo ago (07/19/23) 1 mo ago (07/19/23) Sodium 136 - 145 mmol/L 138 139 136 141 138 138 Potassium 3.5 - 5.1 mmol/L 4.3 4.6 CM 5.1 CM 4.1 CM 3.4 Low CM 3.3 Low 5.1 CM Comment: Specimen slightly hemolyzed. Hemolysis may affect result. Chloride 98 - 109 mmol/L 103 103 108 104 104 102 CO2 20 - 29 mmol/L 24 28 16 Low 25 21 22 Anion Gap 6 - 16 mmol/L 11 8 12 12 13 14 Calcium 8.4 - 10.4 mg/dL 10.1 9.9 9.8 9.7 9.1 9.4 BUN 7 - 26 mg/dL 19 16 17 15 34 High 40 High Creatinine 0.73 - 1.18 mg/dL 1.19 High 1.24 High 0.96 1.10 2.11 High 2.60 High Glucose 70 - 100 mg/dL 105 High 102 High CM 98 CM 83 CM Magnesium Order: [id number] Status: Final result Visible to patient: Yes (not seen) Component Ref Range & Units 1 mo ago (07/20/23) 1 mo ago (07/18/23) 3 mo ago (05/07/23) Magnesium 1.6 - 2.6 mg/dL 2.1 2.2 2.0 Lipid Panel & Direct LDL (if Needed) Order: [id number] Status: Final result Visible to patient: Yes (not seen) 1 Topic Component Ref Range & Units 3 mo ago (05/07/23) 5 yr ago (06/21/18) 5 yr ago (12/10/17) 6 yr ago (05/03/17) 7 yr ago (09/17/15) 10 yr ago (06/17/13) 11 yr ago (05/06/12) Cholesterol 0 - 199 mg/dL 91 185 154 R 200 High R 204 High R 203 High R 184 R Triglyceride <=149 mg/dL 77 220 High 286 High R 240 High R 151 High R 109 R 96 R HDL Cholesterol >=40 mg/dL 31 Low 32 Low 30 Low R 28 Low R 38 Low R 17 Low R 39 Low R LDL, Calculated <130 mg/dL 45 109 67 R 124 R 136 High R 164 High R 126 R Non HDL Chol, Calculated <=159 mg/dL 60 153 124 R 172 High R 166 R 186 R 145 R Cholesterol/HDL Ratio <=5.0 2.9 5.8 R Resulting Agency RL CLLAB HP HP RL HP HP I attest that this patient DID receive metabolic screening (including lipid panel, BMI, blood pressure, fasting glucose or HgbA1C in the last twelve months. Hospital Course The multidisciplinary treatment team met (RN, OT, drug abuse social worker, Physician) on a daily basis to discuss patient care and treatment planning. The psychiatric inpatient setting provided close nursing supervision and access to multiple treatment modalities and programming (group therapy, OT, one-to-one therapy.) Patient support systems such as family, family independence case manager, and other care providers were contacted as appropriate for collateral information and treatment planning. 1. Medication Trials and Changes: 07/18: Delirium precautions ordered. Seroquel ordered 100 mg QHS and 50 mg q4PRN. Zyprexa 5 PO mg vs10 mg IV - TID PRN if needed. UDS ordered. Will order high dosed Thiamine. Will order addiction consult. Gabapentin 300 mg TID ordered for withdrawal symptoms. 07/19: Increase quetiapine to 100mg TID. [employer] dose was 800mg qHS. UDS+ for amphetamines. 07/20: Will give Seroquel 200mg at bedtime this edil then combine doses / change dose to 400mg po qhs. Will titrate to [employer] dose of 800mg po qhs as tolerated / indicated. Hold Lexapro for now. He has not been consistently taking it. Increase Neurontin to 600mg po TID. Offer Zyprexa 10mg po BID PRN. Continue CIWA protocol w PRN Valium and PRN Clonidine. 07/21: Lidocaine patch daily. Medicine consult if [facility] is issued. 07/22: Medicine consult for chronic back pain management. Increase Seroquel to 500mg po qhs. D/c PRNMelatonin and replace w PRN Benadryl. 07/23: Increase Seroquel to 600mg po qhs. Per his request, change Flexeril 10mg from TID PRN to TID.Will avoid Requip for RLS as it could worsen his DC sxs. Instead, will increase Neurontin to 900mg po TID. Spiritual care consult ordered. 07/24: Advance Seroquel to 700mg po qhs. Add Trazodone 50mg po qhs + 50mg po qhs PRN. Changed Benadryl to PRN itching only as this could worsen RLS, if that is truly what he has. Will discuss the possibility of akathisia (vs RLS) tomorrow. 07/25: Increase Seroquel to his [employer] dose of 800mg po qhs. Add a 2nd Lidocaine patch. Maximize daily APAP dose by allowing a daily PRN dose to his TID scheduled APAP. Pain Management consult placed. Trial Cogentin 1mg po BID for possible akathisia. D/c PRN Benadryl as he has Trazodone available. D/c CIWA. 07/26: MONTEZ Burr, may consider non-cardioselective beta messi in place of Toprol (ie. Inderal) for better akathisia coverage if RLS symptoms do not improve with increased Gabapentin. 07/27: Desonide cream BID for dermatitis. 07/28: Scheduled Robaxin 750 mg hs per pt request. 07/29 -- : No change. 08/01: EKG 08/02 AM. Amitriptyline to 100 mg hs. 08/02-: No change 08/04: Consult Addiction medicine 08/05: Per addiction med Naltrexone 50 mg daily 08/06: No change 08/07: Recheck BMP in the AM 08/08: Labs reviewed. Creatinine elevated 1.24. Recheck BMP on 08/10. Discontinue Naltrexone and Motrin. 08/09: Resume APAP 1000mg po TID. 08/10: Add an additional Lidoderm for his neck. Increase Toprol XL to 50mg po qday. 08/11: No med changes. 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 08/13: No med changes. 08/14: D/c scheduled bedtime Zyprexa as it has not changed his sleep pattern. (Continue w PRN.) 08/15 -- : No med changes. sCr remains mildly elevated. Avoid nephrotoxins. 08/18 -- 08/21: No changes 2. Legal Status: Voluntary per SOC 3. Group Attendance: Fair attendance throughout hospitalization 4. Level of cooperation and Medication adherence: Cooperative with treatment planning, engagement in team interviews and compliance with proposed medication interventions throughout hospitalization. 5. Change in psychiatric symptoms: Upon admission, patient was transferred from Medicine unit with psychosis, along with possible SI/SA leading to inpatient stay. At time of admission, no SI was endorsed, patient did report baseline psychosis and primarily struggled with sleep and pain. Both addressed while inpatient, sleep improvedwith initiation/titration of amitriptyline, along with resumption of many [employer] medications. Pain addressed by pain Medicine consult, continued their recommendations through hospitalization. Patient felt both pain and sleep were improved at time of discharge. For more specific daily updates, see below: 57 y.o. with history of psychosis and [...] his room over the weekend. Admitted to [facility]: 07/20: Restless on exam. Reported +AH and +paranoia (under investigation - which he is starting toquestion as the truth). Less disorganized as compared to when on Medicine. He said he was not really sure about the events [employer]. He drinks alcohol heavily, nearly 3L of [place] Doyle rum per week. He has been prescribed Lexapro, but he is not consistent w taking it. Sometimes I need more, referring to self medicating. He used methamphetamine [employer]. He said he has +AH at his [...] denied having SI and he denied the [employer] event asa SA. 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 When initially in the ED, he reported +SI (also while on Medicine) and, when questioned about ingestion, he replied w not enough. Per chart review from the 05/2023 Medicine admission (admitted for erratic driving / legal blood draw, while in the ED he had a syncopal episode and required Medicine admission then transfer to [facility]): He reports that he had about 2 hospitalizations in the past month. One in [facility] (04/24/2022) for acute toxic encephalopathy, drug overdose (cannabinoids, methamphetamine), and alcohol withdrawal w/ delirium tremens which required large amount of benzo. He says he had another hospitalization in [place]. He reports that one of these hospitalizations led to ICU stay and he was told that his kidney were failing, but no detailed records of outside hospital stay are available on admission. 07/21: Restless, argumentative, anxious, irritable, and illogical. He is agreeable to [facility] tx, especially to access psychotherapy, knowing it will likely eventually be court ordered. However, he also stated that he has no intentions of quitting alcohol all together, but only cutting back, b/c of his chronic pain. Additionally, he is unwilling to stay in the hospital beyond his 72h hold, in order tofacilitate a door to door transfer to [facility] tx. He was educated on his risk of relapse and reminded of his recent hospitalizations, related to use / overdosing. Pt was reminded that he himself stated someone could have in relation to the events prior to this admission. He does not see his drinking as a problem, stating, I don't drive. Manager Convention noted that he recently missed a court date for aDUI charge and, last hospitalization here, he was brought here for a legal blood draw after being stopped for erratic driving. When asked about the pill bottles that were scattered around him, when found [employer], he could not give an explanation. Will file a petition for civil commitment. 07/22: Quite tense, irritable, and rude on approach. Said he wants to d/c directly to [facility] he suspects there must be a bench warrant issued for his arrest d/t missing a DUI court date a few weeks back. He slept better, but asked for PRN Benadryl instead of PRN Melatonin. Thought processwas linear. No overt paranoia. Reported +AH last edil. [facility] is supporting petition for commitment. 07/23: He is frustrated w not being able to access an opioid or Voltaren for his chronic pain. He has no insight into risk / benefit considerations. He is resistant to any treatment that takes more effort than popping a pill. He reluctantly agreed to a pain medicine consult. He was noted to be diaphoretic, but has not been scoring high enough on CIWA to warrant PRN BZD. He talked at length about his oldest son's by hanging and about how he has struggled in the aftermath and has failed to adequately support his second son over the years. His second son has attempted suicide numerous timesand is currently in [facility] tx. He added, I must before him. The pt talked about his hinduism bel iefs, about not believing in suicide, but having come to the conclusion that even someone who does not believe in suicide can get to the point of attempting suicide. He denied thoughts of self harm, SI, HI, and VH. He reported +AH and +tactile hallucinations >> hypnagogic-like. Affect was anxious, tense, and irritable. 07/24: No diaphoresis today. Using PRNs for sleep. Denied further AH, VH, or tactile hallucinations.(However, his report of hallucinations varies from person to person.) Agreeable to med trials for various concerns, but tends to want to immediately jump to large doses. Anxious, intense at times, and restless. Thought process is largely linear. Denied SI / HI. He mentioned this hospitalization as the 4th time he's been in the ICU in as many months. 07/25: More elevated, animated, intense, and irritable. Continues restless. Med seeking - more of (to include opioids, BZD, and now stimulants, but also other more benign meds) - and wanting to go straight to high doses. He is a very inconsistent historian w details changing from day to day, person to person. Memory impairment is noted. He noted that he did not trash his kidneys as badly prior to this admission as compared to his other 3 recent admissions. He minimized the significance of his past renal injury and dismissed the warnings he has received by healthcare professionals re the risks to his vital organs. He called them over-dramatic. Denied AH / SI. +Paranoia re demons? Hyper-verbal. 07/26: Continued fixation on medications, feels he is in need of something additional for both pain and sleep -- pt offers diclofenac and Xanax as effective interventions, but understanding when web content writer offered renal concerns with diclofenac and habit-forming tendencies with Xanax. Pt hopeful for Benadryl for sleep which was agreed upon. Discussed Gabapentin additionally as options for both pain, sleep and RLS. 07/27: Less intense, irritable than yesterday and reporting sufficient sleep for the first time in years. Generally fixated on pain, medication options in case things fail down the road during current hospitalization. Apart from this, pt occasionally offers comments about how Xanax and opiate medications would simplify my long med list, but redirectable. 07/28: Largely unchanged, though briefly frustrated with not having Robaxin scheduled. Will do so moving forward per his request. Feels ready for CD referrals, aware that final commitment hearing is not until next week. 07/29: Planning out possible medication changes on a daily basis, frequently asks what next step is if certain medications do not work for him long-term, additionally routes interview back to discussion of pain/diclofenac several times throughout interaction. Very focused on medication regimen schedule. 07/30: Continued fixation on possible medication options moving forward, today mostly surrounding safety profile of medications with alcohol use. Additionally reported voices over the last couple of days, previously withheld from treatment team as he thought this would result in Seroquel being takenaway. 07/31: Unchanged; required. Fran last night for sleep, had difficulty sleeping through the night for 1st time in several days. Agreed to keep medications as are for now, revisit sleep augmentation if issues persist. Otherwise, no changes. 08/01: Persistent request to have suicidal ideation/status clarified by current team, fearful of having this label carried over into time at treatment. Otherwise, reported worse sleep for the past twodays and would appreciate increase in amitriptyline which web content writer agreed to. 08/02: Pt calm, cooperative and medication compliant. Denies psych symptoms. He reports being in agreement with need for CD treatment but argues 3 months is too long as he is the primary provider for his adult son who also struggles with alcohol use/abuse. Discussed benefits for in-patient and hopefully pt will be able to help his son through addiction but the pt argues other james. He believes hisproblem is not meth rather alcohol and he can limit himself. Pt is argumentative and has no insighton dangerous behaviors poses increased risk. Reports adequate sleep since admission. 08/03: Stressed, anxious about court hearing tomorrow. Anticipates he will be committed but does notlike the language as it seems forceful rather then voluntary. Discussed CD tx options and support systems as he work to archived sobriety. Motivated to seek help so as to help his son. Report good sleep the past nights. Requested his records be doctored for suicide because he was never suicidal and does not want belongings taken away when he gets to treatment. 08/04: Mixed of emotions today. Pt had courts earlier today and is excited he was given a SOC as it gives him more options and means of helping his son as well. Pt continued to express committment to CD treatment. He hopes he and son can team up and do AA together. Reports adequate sleep at night. Denies psych symptoms. Re-consulted addiction medicine as the pt is more open to discussion/medication assisted treatment. 08/05: Improved mood. Pt is more open-minded to recommendations regarding treatment. He reports improve sleep on current regimen. He hoes that continues. Discussed sleep hygiene, recommended CBT-I forongoing insomnia. 08/06: Continue to have good sleep. Remains committed to CD tx and then AA but opposed to MAT. Pt wasseen by Addiction med and he was started on Naltrexone. Pt is refusing med stating he does not need it. He is minimizing his alcohol and stating he can self limit his alcohol usage. Shows limited insight into his addiction. Using Zyprexa PRN almost every night to resume sleep which has been effective. Will continue to evaluate the need for scheduled Zyprexa as pt denies psych symptoms. Pt was seen by spiritual care and that has helped improved his mood. 08/07: Pt is feeling sore but otherwise good. Reports adequate sleep despite some interruption during the night. Pt requesting diclofenac oral instead of the gel for chronic pain. Chart review showedconsult from pain med and med hold off on diclofenac due to concerns for kidney issues however creatinine (07/22 was 0.96) has normalized. Will reach out to pain management to see if it is appropriate to add diclofenac and d/c motrin due to significant chronic pain history. Pt case is challengingas he is determined to resolve to getting his meds from online sources. 08/08: Calm and cooperative. Refused Naltrxone so it was discontinued. Lab draw showed elevated creatinine levels of 1.24. Will plan to repeat lab on 08/10. Remains fixated on pain management.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 and PRN Voltarencream. Compliant with medication. SW Report: reviewed and discussed Group attendance and participation: 03/10 OT PRN medications: reviewed MAR OBJECTIVE Hours of Sleep: Patient Vitals for the past 72 hrs: Sleep Hours 08/22/23 0615 7.5 HOURS 08/21/23 2237 1.8 HOURS 08/21/23 1500 0 HOURS 08/21/23 0629 6.5 HOURS 08/20/23 2237 0.8 HOURS 08/20/23 1502 2.3 HOURS 08/20/23 0614 6 HOURS 08/19/23 2249 1 HOURS 08/19/23 1500 0 HOURS LABS: No results found for this or any previous visit (from the past 24 hour(s)). Current Facility-Administered Medications Medication Dose Route Frequency acetaminophen (TYLENOL) tablet 1,000 mg 1,000 mg Oral DAILY PRN acetaminophen (TYLENOL) tablet 1,000 mg 1,000 mg Oral TID amitriptyline (ELAVIL) tablet 100 mg 100 mg Oral At Bedtime amLODIPine (NORVASC) tablet 5 mg 5 mg Oral Daily aspirin chewable tablet 81 mg 81 mg Oral Daily atorvastatin (LIPITOR) tablet 20 mg 20 mg Oral Evening senna (SENOKOT) tablet 2 Tablet 2 Tablet Oral BID PRN And polyethylene glycol (MIRALAX) oral powder 17 g 17 g Oral DAILY PRN And bisacodyl (DULCOLAX) rectal suppository 10 mg 10 mg Rectal DAILY PRN calcium carbonate (TUMS) chewable tablet 1,000 mg 1,000 mg Oral Q4H PRN desonide (DESOWEN) 0.05 % cream Topical BID diclofenac (VOLTAREN) gel 2 g 2 g Topical QID PRN diphenhydrAMINE (BENADRYL) capsule 50 mg 50 mg Oral At Bedtime diphenhydrAMINE (BENADRYL) capsule 50 mg 50 mg Oral DAILY PRN folic acid tablet 1 mg 1 mg Oral Daily gabapentin (NEURONTIN) capsule 1,200 mg 1,200 mg Oral TID lidocaine (ASPERCREAM) 4 % patch 1 Patch 1 Patch Transdermal Daily lidocaine (ASPERCREAM) 4 % patch 2 Patch 2 Patch Transdermal Daily lidocaine (XYLOCAINE) 5 % ointment Topical TID PRN methocarbamol (ROBAXIN) tablet 750 mg 750 mg Oral TID PRN methocarbamol (ROBAXIN) tablet 750 mg 750 mg Oral At Bedtime metoprolol succinate (TOPROL XL) extended release tablet 50 mg 50 mg Oral Daily nicotine (COMMIT) lozenge 2 mg 2 mg Oral Q1H PRN Or nicotine (NICORETTE) gum 2 mg 2 mg Oral Q1H PRN OLANZapine (ZyPREXA ZYDIS) disintegrating tablet 10 mg 10 mg Oral BID PRN pantoprazole DR (PROTONIX) tablet 40 mg 40 mg Oral Daily at 6 am QUEtiapine (SEROquel) tablet 800 mg 800 mg Oral At Bedtime tamsulosin (FLOMAX) capsule 0.4 mg 0.4 mg Oral Daily after a meal thiamine (VITAMIN B-1) tablet 100 mg 100 mg Oral Daily Food intake: Amount of Diet Consumed (last 3 days) Date/Time Intake (%) 08/22/23 0800 100%;Breakfast 08/21/23 1700 100%;Dinner 08/21/23 1200 100%;Lunch 08/21/23 0800 100%;Breakfast 08/20/23 1700 100%;Dinner 08/20/23 1229 100%;Lunch 08/20/23 0812 100%;Breakfast 08/19/23 1720 100%;Dinner 08/19/23 1200 100%;Lunch 08/19/23 0821 100%;Breakfast ALLERGY Allergies Allergen Reactions Valproic Acid Other, see comments Excessive sedation Naltrexone Other, see comments Pt told RN he did not like it so he stopped taking it. MENTAL STATUS EXAM Filed Vitals: 08/21/23 0800 08/21/23 0900 08/21/23 1600 08/21/23 1800 BP: 131/89 131/89 (!) 144/85 (!) 146/88 Pulse: 78 78 82 Resp: 18 18 Temp: 97.4 ??F (36.3 ??C) 98.2 ??F (36.8 ??C) TempSrc: Skin Skin SpO2: 99% 97% Weight: Height: Appearance: alert, improved eye contact, wearing scrubs, adequate grooming, appears older than stated age. Lidocaine patches on both sides of neck. Behavior: engaged, less needy, less med seeking, sometimes externalizes blame, often threatens to resume contraindicated rx after d/c Motor: less restless Gait and Station: wide-based, steady Speech: normal in rate, normal in volume, less hyper-verbal / over-inclusive Language: intact Thought process: largely linear although rambling Thought content: did not endorse thoughts of self harm, SI, HI, AH, and/or VH; no overt paranoid / delusional content offered; focused on sleep and pain Associations: grossly intact Mood: okay Affect: less anxious, more neutral, can become intense when discussing pain Orientation: grossly oriented Attention: intact Insight: poor Judgment: poor CONSULTATION [facility], 07/24/23: Assessment / Recommendations Follow up on labs show creat 0.96, returned to normal range and resolved USAMA. K is 5.1 but sample hemolyzed. med consulted on 07/23/23 because of chronic back/neck/shoulder pain. To me, pt reports chronic low back, B/L hip, and shoulder pain. Frustrated that doctors will not prescribe him opioids, and that they recommend against diclofenac due to kidney issues. 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 In several studies, NSAIDshave shown to further increase the risk for thrombotic CV events as well as bleeding events. He is on ASA and addition of NSAID will increase risk of GI bleeding, as well. No current red flag symptoms for neck/back/shoulder pain, actually appears more controlled than previously per patient's report/chart review. Plan: - gabapentin has been helpful - continue 600 mg TID - lidocaine patch lower back has been helpful - continue daily; also offer additional lidocaine patch for neck or shoulder pain if pt desires - tylenol 650 mg prn changed to 1000 mg TID scheduled - diclofenac gel ordered instead to use topically as less systemic absorption - Given patient's chronic difficult to control pain and his h/o of self medicating with meds he buys off internet, I do think it is important to find a pain regimen that will control pt's chronic pain in a meaningful way so that he is less likely to use the internet to buy pills that are not prescribed to him - given it is the weekend, pain team is not available, but would consider primary team consult them and/or send OP referral to pain clinic for patient at hospital discharge. Pain team was consulted during a previous admission in May 2023, but he was not interested in any options other than opioids at that time. He did not ask me about opioids during our visit, so I believe he may nowbe open to more options, perhaps even intraarticular injections for shoulder/hip/back pain. med will sign off. Please reach out with any questions/concerns. Orin Nelson PA-C PAIN MANAGEMENT, 07/25: TREATMENT RECOMMENDATIONS/PLAN: Increase gabapentin to 1200mg TID Elavil 50mg QHS for sleep and nerve pain Change flexeril to robaxin 750 mg QID PRN NSAIDS could be considered in the future. Overall high risk patient with severe substance use disorder Will add non-opioid adjuvants. I did talk to him about suboxone; since he doesn't have opioid use disorder, this would not be my first preference. However, I would avoid pure opioid agonists at this time. ASSESSMENT AND RECOMMENDATIONS DISCUSSED WITH: Kristin Rutledge PA-C Thank you for consulting the Inpatient Pain Management Service. Please contact me with any questions or concerns. Aaron Galicia M.D. Addiction Medicine 08/09/23: ASSESSMENT/PLAN: 1. Alcohol use disorder, severe: Recent DUI. Patient is agreeable to treatment. States that he is on a stay of commitment. Challenged him to throw himself into his recovery. Discussed strategies for sobriety. Discussed the benefit of recovery meetings. Currently tolerating naltrexone but states he does not want to continue it. We will continue at discharge. 2. Methamphetamine/benzodiazepine use disorder: Discussed benefits of recovery meetings. Discussed benefits of 90 days of sobriety. Agrees to follow-up in my clinic. Bossman Franco MD CAM Alvarado is a 57 y.o. male who has been admitted to [facility] for AH, paranoia, substance withdrawal, and possible [...] his room over the weekend. Admitted to [facility]: 07/20: Restless on exam. Reported +AH and +paranoia (under investigation - which he is starting toquestion as the truth). Less disorganized as compared to when on Medicine. He said he was not really sure about the events [employer]. He drinks alcohol heavily, nearly 3L of [employer] rum per week. He has been prescribed Lexapro, but he is not consistent w taking it. Sometimes I need more, referring to self medicating. He used methamphetamine [employer]. He said he has +AH at his baseline, but while using methamphetamine, the +AH escalated and, it got bad. Someone could have . It all seemed so real. He said he began to think that he would be better off if he just used all of the methamph etamine, so he used some IV. His paranoia escalated and he began to feel like someone was going to come through his door, so I ate the rest of the bag b/c I thought I would need the rage and energy to fight them off. Guarded at times. Hesitantly, he denied having SI and he denied the [employer] event asa SA. 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 When initially in the ED, he reported +SI (also while on Medicine) and, when questioned about ingestion, he replied w not enough. Per chart review from the 05/2023 Medicine admission (admitted for erratic driving / legal blood draw, while in the ED he had a syncopal episode and required Medicine admission then transfer to [facility]): He reports that he had about 2 hospitalizations in the past month. One in [facility] (04/24/2022) for acute toxic encephalopathy, drug overdose (cannabinoids, methamphetamine), and alcohol withdrawal w/ delirium tremens which required large amount of benzo. He says he had another hospitalization in [place]. He reports that one of these hospitalizations led to ICU stay and he was told that his kidney were failing, but no detailed records of outside hospital stay are available on admission. 07/21: Restless, argumentative, anxious, irritable, and illogical. He is agreeable to [facility] tx, especially to access psychotherapy, knowing it will likely eventually be court ordered. However, he also stated that he has no intentions of quitting alcohol all together, but only cutting back, b/c of his chronic pain. Additionally, he is unwilling to stay in the hospital beyond his 72h hold, in order tofacilitate a door to door transfer to [facility] tx. He was educated on his risk of relapse and reminded of his recent hospitalizations, related to use / overdosing. Pt was reminded that he himself stated someone could have in relation to the events prior to this admission. He does not see his drinking as a problem, stating, I don't drive. Manager Convention noted that he recently missed a court date for aDUI charge and, last hospitalization here, he was brought here for a legal blood draw after being stopped for erratic driving. When asked about the pill bottles that were scattered around him, when found [employer], he could not give an explanation. Will file a petition for civil commitment. 07/22: Quite tense, irritable, and rude on approach. Said he wants to d/c directly to [facility] he suspects there must be a bench warrant issued for his arrest d/t missing a DUI court date a few weeks back. He slept better, but asked for PRN Benadryl instead of PRN Melatonin. Thought processwas linear. No overt paranoia. Reported +AH last edil. [facility] is supporting petition for commitment. 07/23: He is frustrated w not being able to access an opioid or Voltaren for his chronic pain. He has no insight into risk / benefit considerations. He is resistant to any treatment that takes more effort than popping a pill. He reluctantly agreed to a pain medicine consult. He was noted to be diaphoretic, but has not been scoring high enough on CIWA to warrant PRN BZD. He talked at length about his oldest son's by hanging and about how he has struggled in the aftermath and has failed to adequately support his second son over the years. His second son has attempted suicide numerous timesand is currently in [facility] tx. He added, I must before him. The pt talked about his hinduism bel iefs, about not believing in suicide, but having come to the conclusion that even someone who does not believe in suicide can get to the point of attempting suicide. He denied thoughts of self harm, SI, HI, and VH. He reported +AH and +tactile hallucinations >> hypnagogic-like. Affect was anxious, tense, and irritable. 07/24: No diaphoresis today. Using PRNs for sleep. Denied further AH, VH, or tactile hallucinations.(However, his report of hallucinations varies from person to person.) Agreeable to med trials for various concerns, but tends to want to immediately jump to large doses. Anxious, intense at times, and restless. Thought process is largely linear. Denied SI / HI. He mentioned this hospitalization as the 4th time he's been in the ICU in as many months. 07/25: More elevated, animated, intense, and irritable. Continues restless. Med seeking - more of (to include opioids, BZD, and now stimulants, but also other more benign meds) - and wanting to go straight to high doses. He is a very inconsistent historian w details changing from day to day, person to person. Memory impairment is noted. He noted that he did not trash his kidneys as badly prior to this admission as compared to his other 3 recent admissions. He minimized the significance of his past renal injury and dismissed the warnings he has received by healthcare professionals re the risks to his vital organs. He called them over-dramatic. Denied AH / SI. +Paranoia re demons? Hyper-verbal. 07/26: Continued fixation on medications, feels he is in need of something additional for both pain and sleep -- pt offers diclofenac and Xanax as effective interventions, but understanding when web content writer offered renal concerns with diclofenac and habit-forming tendencies with Xanax. Pt hopeful for Benadryl for sleep which was agreed upon. Discussed Gabapentin additionally as options for both pain, sleep and RLS. 07/27: Less intense, irritable than yesterday and reporting sufficient sleep for the first time in years. Generally fixated on pain, medication options in case things fail down the road during current hospitalization. Apart from this, pt occasionally offers comments about how Xanax and opiate medications would simplify my long med list, but redirectable. 07/28: Largely unchanged, though briefly frustrated with not having Robaxin scheduled. Will do so moving forward per his request. Feels ready for CD referrals, aware that final commitment hearing is not until next week. 07/29: Planning out possible medication changes on a daily basis, frequently asks what next step is if certain medications do not work for him long-term, additionally routes interview back to discussion of pain/diclofenac several times throughout interaction. Very focused on medication regimen schedule. 07/30: Continued fixation on possible medication options moving forward, today mostly surrounding safety profile of medications with alcohol use. Additionally reported voices over the last couple of days, previously withheld from treatment team as he thought this would result in Seroquel being takenaway. 07/31: Unchanged; required. Robaxin last night for sleep, had difficulty sleeping through the night for 1st time in several days. Agreed to keep medications as are for now, revisit sleep augmentation if issues persist. Otherwise, no changes. 08/01: Persistent request to have suicidal ideation/status clarified by current team, fearful of having this label carried over into time at treatment. Otherwise, reported worse sleep for the past twodays and would appreciate increase in amitriptyline which web content writer agreed to. 08/02: Pt calm, cooperative and medication compliant. Denies psych symptoms. He reports being in agreement with need for CD treatment but argues 3 months is too long as he is the primary provider for his adult son who also struggles with alcohol use/abuse. Discussed benefits for in-patient and hopefully pt will be able to help his son through addiction but the pt argues other james. He believes hisproblem is not meth rather alcohol and he can limit himself. Pt is argumentative and has no insighton dangerous behaviors poses increased risk. Reports adequate sleep since admission. 08/03: Stressed, anxious about court hearing tomorrow. Anticipates he will be committed but does notlike the language as it seems forceful rather then voluntary. Discussed CD tx options and support systems as he work to archived sobriety. Motivated to seek help so as to help his son. Report good sleep the past nights. Requested his records be doctored for suicide because he was never suicidal and does not want belongings taken away when he gets to treatment. 08/04: Mixed of emotions today. Pt had courts earlier today and is excited he was given a SOC as it gives him more options and means of helping his son as well. Pt continued to express committment to CD treatment. He hopes he and son can team up and do AA together. Reports adequate sleep at night. Denies psych symptoms. Re-consulted addiction medicine as the pt is more open to discussion/medication assisted treatment. 08/05: Improved mood. Pt is more open-minded to recommendations regarding treatment. He reports improve sleep on current regimen. He hoes that continues. Discussed sleep hygiene, recommended CBT-I forongoing insomnia. 08/06: Continue to have good sleep. Remains committed to CD tx and then AA but opposed to MAT. Pt wasseen by Addiction med and he was started on Naltrexone. Pt is refusing med stating he does not need it. He is minimizing his alcohol and stating he can self limit his alcohol usage. Shows limited insight into his addiction. Using Zyprexa PRN almost every night to resume sleep which has been effective. Will continue to evaluate the need for scheduled Zyprexa as pt denies psych symptoms. Pt was seen by spiritual care and that has helped improved his mood. 08/07: Pt is feeling sore but otherwise good. Reports adequate sleep despite some interruption during the night. Pt requesting diclofenac oral instead of the gel for chronic pain. Chart review showedconsult from pain med and med hold off on diclofenac due to concerns for kidney issues however creatinine (07/22 was 0.96) has normalized. Will reach out to pain management to see if it is appropriate to add diclofenac and d/c motrin due to significant chronic pain history. Pt case is challengingas he is determined to resolve to getting his meds from online sources. 08/08: Calm and cooperative. Refused Naltrxone so it was discontinued. Lab draw showed elevated creatinine levels of 1.24. Will plan to repeat lab on 08/10. Remains fixated on pain management. 08/09: Pt reported currently getting decent sleep. He perseverated on pain control and on getting either Ibu or Voltaren prescribed again. He has no insight into the risk of renal insult. He suggested being prescribed a little bit of an opioid to have on hand when things get really bad. Nothingoutside of a pill is doable after d/c. Pt lacks accountability for his past behaviors and use andthe resulting consequences. Referral to [place]. Speech is hyper- verbal / over-inclusive and somewhat pressured. He is less restless. No overt paranoia. 08/10: Good participation in OT groups. Overnight sleep was better than usual. (Nearly 8h documented.) He is hopeful for Y[facility]MEEN tx at [place]. Per his usual, seemingly in hopes of getting a prescription, he added a veiled threat to use NSAIDs and/or opioids on his own after d/c, feeling he has no other choice. No insight into his kidney health or addiction. I'd rather my kidneys fail than live inpain. 08/11: Less restless. Less med seeking. Reported very acceptable sleep and improved pain control. Denied further paranoia or AH (as reported during initial part of hospitalization). Eager for YASMEEN tx.He became emotional when speaking about his mother and son. Pt was able to verbalize his positive reasons (mostly family related) for staying sober. He looks forward to my kidneys healing so that he can resume Voltaren. 08/12: Good OT attendance. Pt reported last night's sleep to be pretty good, but as usual, he did wake and take PRNs (for sleep and pain). Despite acknowledging that his pain control is reasonable atpresent, he perseverates on what might happen once he returns home after treatment, becoming irritable and intense. He says topicals will not be suitable. He again made what seem like threats to go back to using Voltaren (and Xanax) even if it means taking 10 years off the top of my life. 08/13: Visible in the milieu. Adequate sleep, although he does wake and get PRNs, usually around ~2a.At length, we discussed his kidney health, avoiding nephrotoxins, and maintaining adequate hydration. He remains focused on restarting NSAIDs, sometimes Xanax, and especially Voltaren, noting, I have no choice! He poses different scenarios, wanting the recommendation that he wants to hear. 08/14: Engaged w peers last edil. Today, ?paranoid re staff playing me over the shaver. He offered that scheduled Zyprexa at bedtime seems unnecessary as it has not changed his sleep pattern. We agreeto d/c and continue PRN. Continues hopeful of resuming Voltaren at some point. He believes the amount of bubbles in his urine indicates the level of renal function. 08/15: Verbalized satisfaction w his sleep and pain control. However, he feels he has no choice but to resume NSAIDs / Voltaren at some point. In his opinion, the benefit of improved pain outweighs the risk of CKD / dialysis / shortened life span. We discussed his problematic [employer] insurance and options for YASMEEN tx after d/c. He has been social and encouraging to peers. He is improved. 08/16: Similar concerns expressed surrounding pain, coverage for YASMEEN tx. Will likely be looking at discharge to family with AA attendance expected given inability to pay for treatment. Further, needs f/u with pain medicine established. 08/17: Largely unchanged; pain patches remain on bilateral sides of neck. No concerns apart from wishing Robaxin be scheduled, worries that this will not be offered at discharge. Discussed that medications are prescribed typically until f/u care outpatient. 08/18: Calm, appreciative of current medication regimen. Optimistic surrounding AA, NA, living with Mom. Looking forward to Father's Day as well. Discussed hopes to get son involved with AA along withgoing to [employer]ism [employer] with him. Aware of potential upcoming discharge and feels confident in his readiness. Declined naltrexone. 08/19: Friendly, somewhat guarded in discussing meeting this AM with ACT team -- told web content writer It would take an absolute moron to be participatory in this meeting without his water system operator present. Unfortunately, this culminated in cancellation of meeting to coordinate care, meaning pt will not be discharging today/must remain at least through the weekend. Plan to reconvene Wednesday AM. 08/20: Largely unchanged; pain and sleep are both managed well with current regimen. Meeting from yesterday rescheduled for Wednesday given pt water system operator was out of office/unable to attend. Pt remains hopeful for discharge to [facility], where he plans to attend AA/NA meetings. 08/21: Initially voiced concern surrounding peer, states he has received unwanted conversation/threatening remarks from this peer since peer was admitted. Wanted patient to be locked in room during overnight, further requested this peer be transferred to different unit. Discussed potential transfer with MD along with provider on separate unit. Given potential for discharge tomorrow, in addition josef physical escalation/assaultive behaviors observed, will place both patients on increased observation status and monitor for escalation. If this occurs, or if patient is to remain inpatient for prolonged time, consider transfer to separate unit. This plan was agreed with by medical aide. DIAGNOSES & PLAN Principal Psychiatric / Substance Use Diagnoses: - encephalopathy s/p ingestion: improved - bipolar disorder w psychosis vs SCAD by hx - r/o substance induced psychosis - alcohol use disorder, severe - methamphetamine use disorder, severe - BZD use disorder, severe - alcohol / BZD withdrawal Medical Concerns to be addressed: - USAMA: sCr again elevated after recent NSAID use - ?element of CKD? - mild rhabdomyolysis: improved - chronic back pain: see Medicine / Pain consult - HTN: norvasc, increased toprol xl - GERD: restarted PPI - HLD: restarted statin - LUTS: flomax - Patient with moderate malnutrition in the context of social/environmental circumstances during hospital stay and remains with no acute or chronic nutrition problems at this time. Patient requiring additional resources due to degree of malnutrition during hospital stay. Dietitian following with the following nutrition therapy plan: 1.) Ok to continue boost TID 2.) RDN to sign off, please consult as needed Medication Ordered/Consults/Labs/Tests Ordered: 07/18: Delirium precautions ordered. Seroquel ordered 100 mg QHS and 50 mg q4PRN. Zyprexa 5 PO mg vs10 mg IV - TID PRN if needed. UDS ordered. Will order high dosed Thiamine. Will order addiction consult. Gabapentin 300 mg TID ordered for withdrawal symptoms. 07/19: Increase quetiapine to 100mg TID. [employer] dose was 800mg qHS. UDS+ for amphetamines. 07/20: Will give Seroquel 200mg at bedtime this edil then combine doses / change dose to 400mg po qhs. Will titrate to [employer] dose of 800mg po qhs as tolerated / indicated. Hold Lexapro for now. He has not been consistently taking it. Increase Neurontin to 600mg po TID. Offer Zyprexa 10mg po BID PRN. Continue CIWA protocol w PRN Valium and PRN Clonidine. 07/21: Lidocaine patch daily. Medicine consult if [facility] is issued. 07/22: Medicine consult for chronic back pain management. Increase Seroquel to 500mg po qhs. D/c PRNMelatonin and replace w PRN Benadryl. 07/23: Increase Seroquel to 600mg po qhs. Per his request, change Flexeril 10mg from TID PRN to TID.Will avoid Requip for RLS as it could worsen his DC sxs. Instead, will increase Neurontin to 900mg po TID. Spiritual care consult ordered. 07/24: Advance Seroquel to 700mg po qhs. Add Trazodone 50mg po qhs + 50mg po qhs PRN. Changed Benadryl to PRN itching only as this could worsen RLS, if that is truly what he has. Will discuss the possibility of akathisia (vs RLS) tomorrow. 07/25: Increase Seroquel to his [employer] dose of 800mg po qhs. Add a 2nd Lidocaine patch. Maximize daily APAP dose by allowing a daily PRN dose to his TID scheduled APAP. Pain Management consult placed. Trial Cogentin 1mg po BID for possible akathisia. D/c PRN Benadryl as he has Trazodone available. D/c CIWA. 07/26: MONTEZ Burr, may consider non-cardioselective beta messi in place of Toprol (ie. Inderal) for better akathisia coverage if RLS symptoms do not improve with increased Gabapentin. 07/27: Desonide cream BID for dermatitis. 07/28: Scheduled Robaxin 750 mg hs per pt request. 07/29 -- : No change. 08/01: EKG 08/02 AM. Amitriptyline to 100 mg hs. 08/02-: No change 08/04: Consult Addiction medicine 08/05: Per addiction med Naltrexone 50 mg daily 08/06: No change 08/07: Recheck BMP in the AM 08/08: Labs reviewed. Creatinine elevated 1.24. Recheck BMP on 08/10. Discontinue Naltrexone and Motrin. 08/09: Resume APAP 1000mg po TID. 08/10: Add an additional Lidoderm for his neck. Increase Toprol XL to 50mg po qday. 08/11: No med changes. 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 08/13: No med changes. 08/14: D/c scheduled bedtime Zyprexa as it has not changed his sleep pattern. (Continue w PRN.) 08/15 -- : No med changes. sCr remains mildly elevated. Avoid nephrotoxins. 08/18 -- 08/21: No changes Discharge appointments needed: PCP, Pain Medicine, Addiction Medicine (if pt is willing) Milieu Management: Admit to: Medicine (IPF) >> NE4 Legal: >> >> SOC Acuity level: YELLOW Encouraged the patient to participate in unit activities. Level of Observation: No additional monitoring needed RE-CERTIFICATION & RISK ASSESSMENT The patient continues to need, on a daily basis, active inpatient psychiatric treatment for ongoingdiagnostic assessment and treatment of the following symptoms: AH, paranoia, substance withdrawal, and possible SI w possible SA prior to admission. The treatment can reasonably be expected to improve the patient's condition. Estimated length of stay is 30 days. Anticipated disposition: YASMEEN tx Risk Assessment: assault: Medium - paranoid Suicide Risk: Low Patient Strengths: willing to take medications Patient clinical status and current presentation discussed with medical aide Dr. Chin, who agrees with the above documentation and plan. Jaden Wetzel PA-C * Jaden Wetzel PA-C - 08/21/2023 8:18 AM CDT [facility] Psychiatry Progress Note PATIENT NAME: Nicanor Alvarado DATE OF SERVICE: 08/21/2023 ATTENDING PRACTITIONER: Jaden Wetzel PA-C HOSPITAL DAY # 32 CHIEF COMPLAINT subsequent inpatient psychiatric encounter INTERVAL HISTORY Nicanor Alvarado was seen in f/u by web content writer, where he walked to [place] for interview. Discussed events yesterday with CM, not having water system operator present for meeting which was understandably frustrating. Pt feels ACM was repeatedly pressing him on questions without water system operator intentionally, hoping to get certain information out of him that would lead to an inpatient CD treatment mandate. Pt otherwise denies concerns with pain, no medication side effects and reports sleep to be stable as well. No other acute issues; pt engaged in further conversation about disposition. States he would/will consider CD treatment if warranted by DUI charges, but feels the next best step for him at this time is to discharge home to mother's, where he will be able to help her with tasks around the farm house. Further, states his water system operator should be in support of this plan as it is in his best interest. REVIEW OF SYSTEMS Constitutional: did not endorse physical health concerns aside from as discussed above + chronic back / neck pain Psychiatric: did not endorse thoughts of self harm, SI, HI, paranoia, AH, and/or VH Medication side effects: none endorsed aside from dry mouth CHART REVIEW & MULTIDISCIPLINARY TEAM MEETING Met with the multidisciplinary treatment team and discussed care and treatment planning. RN Report: Subjective: My mood is good, but I have pain on my (L) shoulder and neck and I need Voltaren. Denies psych symptoms. Objective: Pt was watching TV and social with Peers. Pt was brief and superficial. Pt requested andapplied Voltaren cream for (L) shoulder and neck pain. On recheck reported tolerable relief. Compliant with medication. SW Report: reviewed and discussed Group attendance and participation: 03/12 OT PRN medications: reviewed MAR OBJECTIVE Hours of Sleep: Patient Vitals for the past 72 hrs: Sleep Hours 08/21/23 0629 6.5 HOURS 08/20/23 2237 0.8 HOURS 08/20/23 1502 2.3 HOURS 08/20/23 0614 6 HOURS 08/19/23 2249 1 HOURS 08/19/23 1500 0 HOURS 08/19/23 0633 7.8 HOURS 08/18/23 2233 1.3 HOURS 08/18/23 1442 1 HOURS LABS: No results found for this or any previous visit (from the past 24 hour(s)). Current Facility-Administered Medications Medication Dose Route Frequency acetaminophen (TYLENOL) tablet 1,000 mg 1,000 mg Oral DAILY PRN acetaminophen (TYLENOL) tablet 1,000 mg 1,000 mg Oral TID amitriptyline (ELAVIL) tablet 100 mg 100 mg Oral At Bedtime amLODIPine (NORVASC) tablet 5 mg 5 mg Oral Daily aspirin chewable tablet 81 mg 81 mg Oral Daily atorvastatin (LIPITOR) tablet 20 mg 20 mg Oral Evening senna (SENOKOT) tablet 2 Tablet 2 Tablet Oral BID PRN And polyethylene glycol (MIRALAX) oral powder 17 g 17 g Oral DAILY PRN And bisacodyl (DULCOLAX) rectal suppository 10 mg 10 mg Rectal DAILY PRN calcium carbonate (TUMS) chewable tablet 1,000 mg 1,000 mg Oral Q4H PRN desonide (DESOWEN) 0.05 % cream Topical BID diclofenac (VOLTAREN) gel 2 g 2 g Topical QID PRN diphenhydrAMINE (BENADRYL) capsule 50 mg 50 mg Oral At Bedtime diphenhydrAMINE (BENADRYL) capsule 50 mg 50 mg Oral DAILY PRN folic acid tablet 1 mg 1 mg Oral Daily gabapentin (NEURONTIN) capsule 1,200 mg 1,200 mg Oral TID lidocaine (ASPERCREAM) 4 % patch 1 Patch 1 Patch Transdermal Daily lidocaine (ASPERCREAM) 4 % patch 2 Patch 2 Patch Transdermal Daily lidocaine (XYLOCAINE) 5 % ointment Topical TID PRN methocarbamol (ROBAXIN) tablet 750 mg 750 mg Oral TID PRN methocarbamol (ROBAXIN) tablet 750 mg 750 mg Oral At Bedtime metoprolol succinate (TOPROL XL) extended release tablet 50 mg 50 mg Oral Daily nicotine (COMMIT) lozenge 2 mg 2 mg Oral Q1H PRN Or nicotine (NICORETTE) gum 2 mg 2 mg Oral Q1H PRN OLANZapine (ZyPREXA ZYDIS) disintegrating tablet 10 mg 10 mg Oral BID PRN pantoprazole DR (PROTONIX) tablet 40 mg 40 mg Oral Daily at 6 am QUEtiapine (SEROquel) tablet 800 mg 800 mg Oral At Bedtime tamsulosin (FLOMAX) capsule 0.4 mg 0.4 mg Oral Daily after a meal thiamine (VITAMIN B-1) tablet 100 mg 100 mg Oral Daily Food intake: Amount of Diet Consumed (last 3 days) Date/Time Intake (%) 08/20/23 1700 100%;Dinner 08/20/23 1229 100%;Lunch 08/20/23 0812 100%;Breakfast 08/19/23 1720 100%;Dinner 08/19/23 1200 100%;Lunch 08/19/23 0821 100%;Breakfast 08/18/23 1700 100%;Dinner 08/18/23 1200 100%;Lunch 08/18/23 0800 100%;Breakfast ALLERGY Allergies Allergen Reactions Valproic Acid Other, see comments Excessive sedation Naltrexone Other, see comments Pt told RN he did not like it so he stopped taking it. MENTAL STATUS EXAM Filed Vitals: 08/20/23 0730 08/20/23 0815 08/20/23 1614 08/21/23 0800 BP: 125/88 125/88 (!) 144/85 131/89 Pulse: 83 83 83 78 Resp: 16 16 18 Temp: 97.9 ??F (36.6 ??C) 97.4 ??F (36.3 ??C) 97.4 ??F (36.3 ??C) TempSrc: Oral Oral Skin SpO2: 98% 98% 99% Weight: Height: Appearance: alert, improved eye contact, wearing scrubs, adequate grooming, appears older than stated age. Lidocaine patches on both sides of neck. Behavior: engaged, less needy, less med seeking, sometimes externalizes blame, often threatens to resume contraindicated rx after d/c Motor: less restless Gait and Station: wide-based, steady Speech: normal in rate, normal in volume, less hyper-verbal / over-inclusive Language: intact Thought process: largely linear although rambling Thought content: did not endorse thoughts of self harm, SI, HI, AH, and/or VH; no overt paranoid / delusional content offered; focused on sleep and pain Associations: grossly intact Mood: good Affect: less anxious, more neutral, can become intense when discussing pain Orientation: grossly oriented Attention: intact Insight: poor Judgment: poor CONSULTATION [facility], 07/24/23: Assessment / Recommendations Follow up on labs show creat 0.96, returned to normal range and resolved USAMA. K is 5.1 but sample hemolyzed. med consulted on 07/23/23 because of chronic back/neck/shoulder pain. To me, pt reports chronic low back, B/L hip, and shoulder pain. Frustrated that doctors will not prescribe him opioids, and that they recommend against diclofenac due to kidney issues. 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 In several studies, NSAIDshave shown to further increase the risk for thrombotic CV events as well as bleeding events. He is on ASA and addition of NSAID will increase risk of GI bleeding, as well. No current red flag symptoms for neck/back/shoulder pain, actually appears more controlled than previously per patient's report/chart review. Plan: - gabapentin has been helpful - continue 600 mg TID - lidocaine patch lower back has been helpful - continue daily; also offer additional lidocaine patch for neck or shoulder pain if pt desires - tylenol 650 mg prn changed to 1000 mg TID scheduled - diclofenac gel ordered instead to use topically as less systemic absorption - Given patient's chronic difficult to control pain and his h/o of self medicating with meds he buys off internet, I do think it is important to find a pain regimen that will control pt's chronic pain in a meaningful way so that he is less likely to use the internet to buy pills that are not prescribed to him - given it is the weekend, pain team is not available, but would consider primary team consult them and/or send OP referral to pain clinic for patient at hospital discharge. Pain team was consulted during a previous admission in May 2023, but he was not interested in any options other than opioids at that time. He did not ask me about opioids during our visit, so I believe he may nowbe open to more options, perhaps even intraarticular injections for shoulder/hip/back pain. [facility] will sign off. Please reach out with any questions/concerns. Orin Nelson PA-C PAIN MANAGEMENT, 07/25: TREATMENT RECOMMENDATIONS/PLAN: Increase gabapentin to 1200mg TID Elavil 50mg QHS for sleep and nerve pain Change flexeril to robaxin 750 mg QID PRN NSAIDS could be considered in the future. Overall high risk patient with severe substance use disorder Will add non-opioid adjuvants. I did talk to him about suboxone; since he doesn't have opioid use disorder, this would not be my first preference. However, I would avoid pure opioid agonists at this time. ASSESSMENT AND RECOMMENDATIONS DISCUSSED WITH: Kristin Rutledge PA-C Thank you for consulting the Inpatient Pain Management Service. Please contact me with any questions or concerns. Aaron Galicia M.D. Addiction Medicine 08/09/23: ASSESSMENT/PLAN: 1. Alcohol use disorder, severe: Recent DUI. Patient is agreeable to treatment. States that he is on a stay of commitment. Challenged him to throw himself into his recovery. Discussed strategies for sobriety. Discussed the benefit of recovery meetings. Currently tolerating naltrexone but states he does not want to continue it. We will continue at discharge. 2. Methamphetamine/benzodiazepine use disorder: Discussed benefits of recovery meetings. Discussed benefits of 90 days of sobriety. Agrees to follow-up in my clinic. Bossman Franco MD IMPRESSION Nicanor Alvarado is a 57 y.o. male [...] his room over the weekend. Admitted to NH4: 07/20: Restless on exam. Reported +AH and +paranoia (under investigation - which he is starting toquestion as the truth). Less disorganized as compared to when on Medicine. He said he was not really sure about the events [employer]. He drinks alcohol heavily, nearly 3L of [employer] Ryan's rum per week. He has been prescribed Lexapro, but he is not consistent w taking it. Sometimes I need more, referring to self medicating. He used methamphetamine [employer]. He said he has +AH at his baseline, but while using methamphetamine, the +AH escalated and, it got bad. Someone could have . It all seemed so real. He said he began to think that he would be better off if he just used all of the methamph etamine, so he used some IV. His paranoia escalated and he began to feel like someone was going to come through his door, so I ate the rest of the bag b/c I thought I would need the rage and energy to fight them off. Guarded at times. Hesitantly, he denied having SI and he denied the [employer] event asa SA. 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 When initially in the ED, he reported +SI (also while on Medicine) and, when questioned about ingestion, he replied w not enough. Per chart review from the 05/2023 Medicine admission (admitted for erratic driving / legal blood draw, while in the ED he had a syncopal episode and required Medicine admission then transfer to [facility]): He reports that he had about 2 hospitalizations in the past month. One in [facility] (04/24/2022) for acute toxic encephalopathy, drug overdose (cannabinoids, methamphetamine), and alcohol withdrawal w/ delirium tremens which required large amount of benzo. He says he had another hospitalization in [place]. He reports that one of these hospitalizations led to ICU stay and he was told that his kidney were failing, but no detailed records of outside hospital stay are available on admission. 07/21: Restless, argumentative, anxious, irritable, and illogical. He is agreeable to YASMEEN tx, especially to access psychotherapy, knowing it will likely eventually be court ordered. However, he also stated that he has no intentions of quitting alcohol all together, but only cutting back, b/c of his chronic pain. Additionally, he is unwilling to stay in the hospital beyond his 72h hold, in order tofacilitate a door to door transfer to [facility]. He was educated on his risk of relapse and reminded of his recent hospitalizations, related to use / overdosing. Pt was reminded that he himself stated someone could have in relation to the events prior to this admission. He does not see his drinking as a problem, stating, I don't drive. Manager Convention noted that he recently missed a court date for aDUI charge and, last hospitalization here, he was brought here for a legal blood draw after being stopped for erratic driving. When asked about the pill bottles that were scattered around him, when found [employer], he could not give an explanation. Will file a petition for civil commitment. 07/22: Quite tense, irritable, and rude on approach. Said he wants to d/c directly to [facility] he suspects there must be a bench warrant issued for his arrest d/t missing a DUI court date a few weeks back. He slept better, but asked for PRN Benadryl instead of PRN Melatonin. Thought processwas linear. No overt paranoia. Reported +AH last edil. [facility] is supporting petition for commitment. 07/23: He is frustrated w not being able to access an opioid or Voltaren for his chronic pain. He has no insight into risk / benefit considerations. He is resistant to any treatment that takes more effort than popping a pill. He reluctantly agreed to a pain medicine consult. He was noted to be diaphoretic, but has not been scoring high enough on CIWA to warrant PRN BZD. He talked at length about his oldest son's by hanging and about how he has struggled in the aftermath and has failed to adequately support his second son over the years. His second son has attempted suicide numerous timesand is currently in YASMEEN tx. He added, I must before him. The pt talked about his hinduism bel iefs, about not believing in suicide, but having come to the conclusion that even someone who does not believe in suicide can get to the point of attempting suicide. He denied thoughts of self harm, SI, HI, and VH. He reported +AH and +tactile hallucinations >> hypnagogic-like. Affect was anxious, tense, and irritable. 07/24: No diaphoresis today. Using PRNs for sleep. Denied further AH, VH, or tactile hallucinations.(However, his report of hallucinations varies from person to person.) Agreeable to med trials for various concerns, but tends to want to immediately jump to large doses. Anxious, intense at times, and restless. Thought process is largely linear. Denied SI / HI. He mentioned this hospitalization as the 4th time he's been in the ICU in as many months. 07/25: More elevated, animated, intense, and irritable. Continues restless. Med seeking - more of (to include opioids, BZD, and now stimulants, but also other more benign meds) - and wanting to go straight to high doses. He is a very inconsistent historian w details changing from day to day, person to person. Memory impairment is noted. He noted that he did not trash his kidneys as badly prior to this admission as compared to his other 3 recent admissions. He minimized the significance of his past renal injury and dismissed the warnings he has received by healthcare professionals re the risks to his vital organs. He called them over-dramatic. Denied AH / SI. +Paranoia re demons? Hyper-verbal. 07/26: Continued fixation on medications, feels he is in need of something additional for both pain and sleep -- pt offers diclofenac and Xanax as effective interventions, but understanding when web content writer offered renal concerns with diclofenac and habit-forming tendencies with Xanax. Pt hopeful for Benadryl for sleep which was agreed upon. Discussed Gabapentin additionally as options for both pain, sleep and RLS. 07/27: Less intense, irritable than yesterday and reporting sufficient sleep for the first time in years. Generally fixated on pain, medication options in case things fail down the road during current hospitalization. Apart from this, pt occasionally offers comments about how Xanax and opiate medications would simplify my long med list, but redirectable. 07/28: Largely unchanged, though briefly frustrated with not having Robaxin scheduled. Will do so moving forward per his request. Feels ready for CD referrals, aware that final commitment hearing is not until next week. 07/29: Planning out possible medication changes on a daily basis, frequently asks what next step is if certain medications do not work for him long-term, additionally routes interview back to discussion of pain/diclofenac several times throughout interaction. Very focused on medication regimen schedule. 07/30: Continued fixation on possible medication options moving forward, today mostly surrounding safety profile of medications with alcohol use. Additionally reported voices over the last couple of days, previously withheld from treatment team as he thought this would result in Seroquel being takenaway. 07/31: Unchanged; required. Alexisaxin last night for sleep, had difficulty sleeping through the night for 1st time in several days. Agreed to keep medications as are for now, revisit sleep augmentation if issues persist. Otherwise, no changes. 08/01: Persistent request to have suicidal ideation/status clarified by current team, fearful of having this label carried over into time at treatment. Otherwise, reported worse sleep for the past twodays and would appreciate increase in amitriptyline which web content writer agreed to. 08/02: Pt calm, cooperative and medication compliant. Denies psych symptoms. He reports being in agreement with need for CD treatment but argues 3 months is too long as he is the primary provider for his adult son who also struggles with alcohol use/abuse. Discussed benefits for in-patient and hopefully pt will be able to help his son through addiction but the pt argues other james. He believes hisproblem is not meth rather alcohol and he can limit himself. Pt is argumentative and has no insighton dangerous behaviors poses increased risk. Reports adequate sleep since admission. 08/03: Stressed, anxious about court hearing tomorrow. Anticipates he will be committed but does notlike the language as it seems forceful rather then voluntary. Discussed CD tx options and support systems as he work to archived sobriety. Motivated to seek help so as to help his son. Report good sleep the past nights. Requested his records be doctored for suicide because he was never suicidal and does not want belongings taken away when he gets to treatment. 08/04: Mixed of emotions today. Pt had courts earlier today and is excited he was given a SOC as it gives him more options and means of helping his son as well. Pt continued to express committment to CD treatment. He hopes he and son can team up and do AA together. Reports adequate sleep at night. Denies psych symptoms. Re-consulted addiction medicine as the pt is more open to discussion/medication assisted treatment. 08/05: Improved mood. Pt is more open-minded to recommendations regarding treatment. He reports improve sleep on current regimen. He hoes that continues. Discussed sleep hygiene, recommended CBT-I forongoing insomnia. 08/06: Continue to have good sleep. Remains committed to CD tx and then AA but opposed to MAT. Pt wasseen by Addiction med and he was started on Naltrexone. Pt is refusing med stating he does not need it. He is minimizing his alcohol and stating he can self limit his alcohol usage. Shows limited insight into his addiction. Using Zyprexa PRN almost every night to resume sleep which has been effective. Will continue to evaluate the need for scheduled Zyprexa as pt denies psych symptoms. Pt was seen by spiritual care and that has helped improved his mood. 08/07: Pt is feeling sore but otherwise good. Reports adequate sleep despite some interruption during the night. Pt requesting diclofenac oral instead of the gel for chronic pain. Chart review showedconsult from pain med and med hold off on diclofenac due to concerns for kidney issues however creatinine (07/22 was 0.96) has normalized. Will reach out to pain management to see if it is appropriate to add diclofenac and d/c motrin due to significant chronic pain history. Pt case is challengingas he is determined to resolve to getting his meds from online sources. 08/08: Calm and cooperative. Refused Naltrxone so it was discontinued. Lab draw showed elevated creatinine levels of 1.24. Will plan to repeat lab on 08/10. Remains fixated on pain management. 08/09: Pt reported currently getting decent sleep. He perseverated on pain control and on getting either Ibu or Voltaren prescribed again. He has no insight into the risk of renal insult. He suggested being prescribed a little bit of an opioid to have on hand when things get really bad. Nothingoutside of a pill is doable after d/c. Pt lacks accountability for his past behaviors and use andthe resulting consequences. Referral to [place]. Speech is hyper- verbal / over-inclusive and somewhat pressured. He is less restless. No overt paranoia. 6/5: Good participation in OT groups. Overnight sleep was better than usual. (Nearly 8h documented.) He is hopeful for YASMEEN tx at [place]. Per his usual, seemingly in hopes of getting a prescription, he added a veiled threat to use NSAIDs and/or opioids on his own after d/c, feeling he has no other choice. No insight into his kidney health or addiction. I'd rather my kidneys fail than live inpain. 08/11: Less restless. Less med seeking. Reported very acceptable sleep and improved pain control. Denied further paranoia or AH (as reported during initial part of hospitalization). Eager for YASMEEN tx.He became emotional when speaking about his mother and son. Pt was able to verbalize his positive reasons (mostly family related) for staying sober. He looks forward to my kidneys healing so that he can resume Voltaren. 08/12: Good OT attendance. Pt reported last night's sleep to be pretty good, but as usual, he did wake and take PRNs (for sleep and pain). Despite acknowledging that his pain control is reasonable atpresent, he perseverates on what might happen once he returns home after treatment, becoming irritable and intense. He says topicals will not be suitable. He again made what seem like threats to go back to using Voltaren (and Xanax) even if it means taking 10 years off the top of my life. 08/13: Visible in the milieu. Adequate sleep, although he does wake and get PRNs, usually around ~2a.At length, we discussed his kidney health, avoiding nephrotoxins, and maintaining adequate hydration. He remains focused on restarting NSAIDs, sometimes Xanax, and especially Voltaren, noting, I have no choice! He poses different scenarios, wanting the recommendation that he wants to hear. 08/14: Engaged w peers last edil. Today, ?paranoid re staff playing me over the shaver. He offered that scheduled Zyprexa at bedtime seems unnecessary as it has not changed his sleep pattern. We agreeto d/c and continue PRN. Continues hopeful of resuming Voltaren at some point. He believes the amount of bubbles in his urine indicates the level of renal function. 08/15: Verbalized satisfaction w his sleep and pain control. However, he feels he has no choice but to resume NSAIDs / Voltaren at some point. In his opinion, the benefit of improved pain outweighs the risk of CKD / dialysis / shortened life span. We discussed his problematic [employer] insurance and options for YASMEEN tx after d/c. He has been social and encouraging to peers. He is improved. 08/16: Similar concerns expressed surrounding pain, coverage for YASMEEN tx. Will likely be looking at discharge to family with AA attendance expected given inability to pay for treatment. Further, needs f/u with pain medicine established. 08/17: Largely unchanged; pain patches remain on bilateral sides of neck. No concerns apart from wishing Robaxin be scheduled, worries that this will not be offered at discharge. Discussed that medications are prescribed typically until f/u care outpatient. 08/18: Calm, appreciative of current medication regimen. Optimistic surrounding AA, NA, living with Mom. Looking forward to Father's Day as well. Discussed hopes to get son involved with [facility]. Aware of potential upcoming discharge and feels confident in his readiness. Declined naltrexone. 08/19: Friendly, somewhat guarded in discussing meeting this AM with ACT team -- told web content writer It would take an absolute moron to be participatory in this meeting without his water system operator present. Unfortunately, this culminated in cancellation of meeting to coordinate care, meaning pt will not be discharging today/must remain at least through the weekend. Plan to reconvene Wednesday AM. 08/20: Largely unchanged; pain and sleep are both managed well with current regimen. Meeting from yesterday rescheduled for Wednesday given pt water system operator was out of office/unable to attend. Pt remains hopeful for discharge to mother's, where he plans to attend AA/NA meetings. DIAGNOSES & PLAN Principal Psychiatric / Substance Use Diagnoses: - encephalopathy s/p ingestion: improved - bipolar disorder w psychosis vs SCAD by hx - r/o substance induced psychosis - alcohol use disorder, severe - methamphetamine use disorder, severe - BZD use disorder, severe - alcohol / BZD withdrawal Medical Concerns to be addressed: - USAMA: sCr again elevated after recent NSAID use - ?element of CKD? - mild rhabdomyolysis: improved - chronic back pain: see Medicine / Pain consult - HTN: norvasc, increased toprol xl - GERD: restarted PPI - HLD: restarted statin - LUTS: flomax - Patient with moderate malnutrition in the context of social/environmental circumstances during hospital stay and remains with no acute or chronic nutrition problems at this time. Patient requiring additional resources due to degree of malnutrition during hospital stay. Dietitian following with the following nutrition therapy plan: 1.) Ok to continue boost TID 2.) RDN to sign off, please consult as needed Medication Ordered/Consults/Labs/Tests Ordered: 07/18: Delirium precautions ordered. Seroquel ordered 100 mg QHS and 50 mg q4PRN. Zyprexa 5 PO mg vs10 mg IV - TID PRN if needed. UDS ordered. Will order high dosed Thiamine. Will order addiction consult. Gabapentin 300 mg TID ordered for withdrawal symptoms. 07/19: Increase quetiapine to 100mg TID. [employer] dose was 800mg qHS. UDS+ for amphetamines. 07/20: Will give Seroquel 200mg at bedtime this edil then combine doses / change dose to 400mg po qhs. Will titrate to [employer] dose of 800mg po qhs as tolerated / indicated. Hold Lexapro for now. He has not been consistently taking it. Increase Neurontin to 600mg po TID. Offer Zyprexa 10mg po BID PRN. Continue CIWA protocol w PRN Valium and PRN Clonidine. 07/21: Lidocaine patch daily. Medicine consult if PC is issued. 07/22: Medicine consult for chronic back pain management. Increase Seroquel to 500mg po qhs. D/c PRNMelatonin and replace w PRN Benadryl. 07/23: Increase Seroquel to 600mg po qhs. Per his request, change Flexeril 10mg from TID PRN to TID.Will avoid Requip for RLS as it could worsen his DC sxs. Instead, will increase Neurontin to 900mg po TID. Spiritual care consult ordered. 07/24: Advance Seroquel to 700mg po qhs. Add Trazodone 50mg po qhs + 50mg po qhs PRN. Changed Benadryl to PRN itching only as this could worsen RLS, if that is truly what he has. Will discuss the possibility of akathisia (vs RLS) tomorrow. 07/25: Increase Seroquel to his [employer] dose of 800mg po qhs. Add a 2nd Lidocaine patch. Maximize daily APAP dose by allowing a daily PRN dose to his TID scheduled APAP. Pain Management consult placed. Trial Cogentin 1mg po BID for possible akathisia. D/c PRN Benadryl as he has Trazodone available. D/c CIWA. 07/26: DC Aminah, may consider non-cardioselective beta messi in place of Toprol (ie. Inderal) for better akathisia coverage if RLS symptoms do not improve with increased Gabapentin. 07/27: Desonide cream BID for dermatitis. 07/28: Scheduled Robaxin 750 mg hs per pt request. 07/29 -- : No change. 08/01: EKG 08/02 AM. Amitriptyline to 100 mg hs. 08/02-: No change 08/04: Consult Addiction medicine 08/05: Per addiction med Naltrexone 50 mg daily 08/06: No change 08/07: Recheck BMP in the AM 08/08: Labs reviewed. Creatinine elevated 1.24. Recheck BMP on 08/10. Discontinue Naltrexone and Motrin. 08/09: Resume APAP 1000mg po TID. 08/10: Add an additional Lidoderm for his neck. Increase Toprol XL to 50mg po qday. 08/11: No med changes. 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 08/13: No med changes. 08/14: D/c scheduled bedtime Zyprexa as it has not changed his sleep pattern. (Continue w PRN.) 08/15 -- : No med changes. sCr remains mildly elevated. Avoid nephrotoxins. 08/18 -- 08/20: No changes Discharge appointments needed: PCP, Pain Medicine, Addiction Medicine (if pt is willing) Milieu Management: Admit to: Medicine (IPF) >> NE4 Legal: >> >> SOC Acuity level: YELLOW Encouraged the patient to participate in unit activities. Level of Observation: No additional monitoring needed RE-CERTIFICATION & RISK ASSESSMENT The patient continues to need, on a daily basis, active inpatient psychiatric treatment for ongoingdiagnostic assessment and treatment of the following symptoms: AH, paranoia, substance withdrawal, and possible SI w possible SA prior to admission. The treatment can reasonably be expected to improve the patient's condition. Estimated length of stay is 30 days. Anticipated disposition: YASMEEN tx Risk Assessment: assault: Medium - paranoid Suicide Risk: Low Patient Strengths: willing to take medications Jaden Wetzel PA-C * Jaden Wetzel PA-C - 08/20/2023 11:24 AM CDT [facility] Psychiatry Progress Note PATIENT NAME: Nicanor Alvarado DATE OF SERVICE: 08/20/2023 ATTENDING PRACTITIONER: Jaden Wetzel PA-C HOSPITAL DAY # 31 CHIEF COMPLAINT subsequent inpatient psychiatric encounter INTERVAL HISTORY Nicanor Alvarado was seen in f/u by web content writer and MD, where he was sitting on the unit and agreed to interview. Notes he is fine, apart from the baseline pain. No concerns expressed surrounding sleep. Hopeful for discharge today, but aware of meeting this AM with case management that will need to be completed before this will be known. Pt reports issue with the meeting itself, as his water system operator is not working today and he won't say a word without my water system operator present. It would take an absolute moron to do that. No other concerns endorsed at this time, agreed to terminate interview. REVIEW OF SYSTEMS Constitutional: did not endorse physical health concerns aside from as discussed above + chronic back / neck pain Psychiatric: did not endorse thoughts of self harm, SI, HI, paranoia, AH, and/or VH Medication side effects: none endorsed aside from dry mouth CHART REVIEW & MULTIDISCIPLINARY TEAM MEETING Met with the multidisciplinary treatment team and discussed care and treatment planning. RN Report: Subjective: I won't be able to put patches on my back when I'm at home. Objective: Tom has been visible on the unit all shift. He is social with peers, controlled. Early in shift he had web content writer apply the Aspercreme ungt to his right shoulder and Lidocaine ungt to his neck. Said they help better than the pain patches. He was frustrated early in the shift because as an MHT was helping him with his phone, he thought it seemed like it had been hacked, was trying to get some financial information. Was told this isn't allowed without permission, was upset because of that and the phone issue. Manager Convention assured him that staff can check in the am. Manager Convention left for ADA Velazco. His phone seemed to be working later in shift, so he is relieved. He denied SI, HI, hallucinations. Compliant with meds at . Hoping for DC tomorrow. ADA Report: reviewed and discussed Group attendance and participation: 03/10 OT PRN medications: reviewed MAR OBJECTIVE Hours of Sleep: Patient Vitals for the past 72 hrs: Sleep Hours 08/20/23 0614 6 HOURS 08/19/23 2249 1 HOURS 08/19/23 1500 0 HOURS 08/19/23 0633 7.8 HOURS 08/18/23 2233 1.3 HOURS 08/18/23 1442 1 HOURS 08/18/23 0630 8 HOURS 08/17/23 2235 1.3 HOURS 08/17/23 1507 0.3 HOURS LABS: No results found for this or any previous visit (from the past 24 hour(s)). Current Facility-Administered Medications Medication Dose Route Frequency acetaminophen (TYLENOL) tablet 1,000 mg 1,000 mg Oral DAILY PRN acetaminophen (TYLENOL) tablet 1,000 mg 1,000 mg Oral TID amitriptyline (ELAVIL) tablet 100 mg 100 mg Oral At Bedtime amLODIPine (NORVASC) tablet 5 mg 5 mg Oral Daily aspirin chewable tablet 81 mg 81 mg Oral Daily atorvastatin (LIPITOR) tablet 20 mg 20 mg Oral Evening senna (SENOKOT) tablet 2 Tablet 2 Tablet Oral BID PRN And polyethylene glycol (MIRALAX) oral powder 17 g 17 g Oral DAILY PRN And bisacodyl (DULCOLAX) rectal suppository 10 mg 10 mg Rectal DAILY PRN calcium carbonate (TUMS) chewable tablet 1,000 mg 1,000 mg Oral Q4H PRN desonide (DESOWEN) 0.05 % cream Topical BID diclofenac (VOLTAREN) gel 2 g 2 g Topical QID PRN diphenhydrAMINE (BENADRYL) capsule 50 mg 50 mg Oral At Bedtime diphenhydrAMINE (BENADRYL) capsule 50 mg 50 mg Oral DAILY PRN folic acid tablet 1 mg 1 mg Oral Daily gabapentin (NEURONTIN) capsule 1,200 mg 1,200 mg Oral TID lidocaine (ASPERCREAM) 4 % patch 1 Patch 1 Patch Transdermal Daily lidocaine (ASPERCREAM) 4 % patch 2 Patch 2 Patch Transdermal Daily lidocaine (XYLOCAINE) 5 % ointment Topical TID PRN methocarbamol (ROBAXIN) tablet 750 mg 750 mg Oral TID PRN methocarbamol (ROBAXIN) tablet 750 mg 750 mg Oral At Bedtime metoprolol succinate (TOPROL XL) extended release tablet 50 mg 50 mg Oral Daily nicotine (COMMIT) lozenge 2 mg 2 mg Oral Q1H PRN Or nicotine (NICORETTE) gum 2 mg 2 mg Oral Q1H PRN OLANZapine (ZyPREXA ZYDIS) disintegrating tablet 10 mg 10 mg Oral BID PRN pantoprazole DR (PROTONIX) tablet 40 mg 40 mg Oral Daily at 6 am QUEtiapine (SEROquel) tablet 800 mg 800 mg Oral At Bedtime tamsulosin (FLOMAX) capsule 0.4 mg 0.4 mg Oral Daily after a meal thiamine (VITAMIN B-1) tablet 100 mg 100 mg Oral Daily Food intake: Amount of Diet Consumed (last 3 days) Date/Time Intake (%) 08/20/23 0812 100%;Breakfast 08/19/23 1720 100%;Dinner 08/19/23 1200 100%;Lunch 08/19/23 0821 100%;Breakfast 08/18/23 1700 100%;Dinner 08/18/23 1200 100%;Lunch 08/18/23 0800 100%;Breakfast 08/17/23 1722 100%;Dinner 08/17/23 1211 100%;Lunch 08/17/23 0800 100%;Breakfast ALLERGY Allergies Allergen Reactions Valproic Acid Other, see comments Excessive sedation Naltrexone Other, see comments Pt told RN he did not like it so he stopped taking it. MENTAL STATUS EXAM Filed Vitals: 08/19/23 0900 08/19/23 1603 08/20/23 0730 08/20/23 0815 BP: (!) 140/88 (!) 149/98 125/88 125/88 Pulse: 83 91 83 83 Resp: 18 16 16 Temp: 98.2 ??F (36.8 ??C) 97.7 ??F (36.5 ??C) 97.9 ??F (36.6 ??C) TempSrc: Skin Temporal Artery Oral SpO2: 100% 97% 98% Weight: Height: Appearance: alert, improved eye contact, wearing scrubs, adequate grooming, appears older than stated age. Lidocaine patches on both sides of neck. Behavior: engaged, less needy, less med seeking, sometimes externalizes blame, often threatens to resume contraindicated rx after d/c Motor: less restless Gait and Station: wide-based, steady Speech: normal in rate, normal in volume, less hyper-verbal / over-inclusive Language: intact Thought process: largely linear although rambling Thought content: did not endorse thoughts of self harm, SI, HI, AH, and/or VH; no overt paranoid / delusional content offered; focused on sleep and pain Associations: grossly intact Mood: good Affect: less anxious, more neutral, can become intense when discussing pain Orientation: grossly oriented Attention: intact Insight: poor Judgment: poor CONSULTATION [facility], 07/24/23: Assessment / Recommendations Follow up on labs show creat 0.96, returned to normal range and resolved USAMA. K is 5.1 but sample hemolyzed. med consulted on 07/23/23 because of chronic back/neck/shoulder pain. To me, pt reports chronic low back, B/L hip, and shoulder pain. Frustrated that doctors will not prescribe him opioids, and that they recommend against diclofenac due to kidney issues. 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 Although from a kidney perspective it may be safe to use NSAIDs, danny for an acute/short term need,I still do not believe this is the best nursing home medication for this patient for pain control moreso because of his cardiac risks with longstanding HLD, HTN, age, gender. In several studies, NSAIDshave shown to further increase the risk for thrombotic CV events as well as bleeding events. He is on ASA and addition of NSAID will increase risk of GI bleeding, as well. No current red flag symptoms for neck/back/shoulder pain, actually appears more controlled than previously per patient's report/chart review. Plan: - gabapentin has been helpful - continue 600 mg TID - lidocaine patch lower back has been helpful - continue daily; also offer additional lidocaine patch for neck or shoulder pain if pt desires - tylenol 650 mg prn changed to 1000 mg TID scheduled - diclofenac gel ordered instead to use topically as less systemic absorption - Given patient's chronic difficult to control pain and his h/o of self medicating with meds he buys off internet, I do think it is important to find a pain regimen that will control pt's chronic pain in a meaningful way so that he is less likely to use the internet to buy pills that are not prescribed to him - given it is the weekend, pain team is not available, but would consider primary team consult them and/or send OP referral to pain clinic for patient at hospital discharge. Pain team was consulted during a previous admission in May 2023, but he was not interested in any options other than opioids at that time. He did not ask me about opioids during our visit, so I believe he may nowbe open to more options, perhaps even intraarticular injections for shoulder/hip/back pain. med will sign off. Please reach out with any questions/concerns. Orin Nelson PA-C PAIN MANAGEMENT, 07/25: TREATMENT RECOMMENDATIONS/PLAN: Increase gabapentin to 1200mg TID Elavil 50mg QHS for sleep and nerve pain Change flexeril to robaxin 750 mg QID PRN NSAIDS could be considered in the future. Overall high risk patient with severe substance use disorder Will add non-opioid adjuvants. I did talk to him about suboxone; since he doesn't have opioid use disorder, this would not be my first preference. However, I would avoid pure opioid agonists at this time. ASSESSMENT AND RECOMMENDATIONS DISCUSSED WITH: Kristin Rutledge PA-C Thank you for consulting the Inpatient Pain Management Service. Please contact me with any questions or concerns. Aaron Galicia M.D. Addiction Medicine 08/09/23: ASSESSMENT/PLAN: 1. Alcohol use disorder, severe: Recent DUI. Patient is agreeable to treatment. States that he is on a stay of commitment. Challenged him to throw himself into his recovery. Discussed strategies for sobriety. Discussed the benefit of recovery meetings. Currently tolerating naltrexone but states he does not want to continue it. We will continue at discharge. 2. Methamphetamine/benzodiazepine use disorder: Discussed benefits of recovery meetings. Discussed benefits of 90 days of sobriety. Agrees to follow-up in my clinic. Bossman Franco MD CAM Alvarado is a 57 y.o. male who has been admitted to [facility] for AH, paranoia, substance withdrawal, and possible [...] his room over the weekend. Admitted to NE4: 07/20: Restless on exam. Reported +AH and +paranoia (under investigation - which he is starting toquestion as the truth). Less disorganized as compared to when on Medicine. He said he was not really sure about the events [employer]. He drinks alcohol heavily, nearly 3L of [employer] rum per week. He has been prescribed Lexapro, but he is not consistent w taking it. Sometimes I need more, referring to self medicating. He used methamphetamine [employer]. He said he has +AH at his baseline, but while using methamphetamine, the +AH escalated and, it got bad. Someone could have . It all seemed so real. He said he began to think that he would be better off if he just used all of the methamph etamine, so he used some IV. His paranoia escalated and he began to feel like someone was going to come through his door, so I ate the rest of the bag b/c I thought I would need the rage and energy to fight them off. Guarded at times. Hesitantly, he denied having SI and he denied the [employer] event asa SA. 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 When initially in the ED, he reported +SI (also while on Medicine) and, when questioned about ingestion, he replied w not enough. Per chart review from the 05/2023 Medicine admission (admitted for erratic driving / legal blood draw, while in the ED he had a syncopal episode and required Medicine admission then transfer to [facility]): He reports that he had about 2 hospitalizations in the past month. One in [facility] (04/24/2022) for acute toxic encephalopathy, drug overdose (cannabinoids, methamphetamine), and alcohol withdrawal w/ delirium tremens which required large amount of benzo. He says he had another hospitalization in [place]. He reports that one of these hospitalizations led to ICU stay and he was told that his kidney were failing, but no detailed records of outside hospital stay are available on admission. 07/21: Restless, argumentative, anxious, irritable, and illogical. He is agreeable to YASMEEN tx, especially to access psychotherapy, knowing it will likely eventually be court ordered. However, he also stated that he has no intentions of quitting alcohol all together, but only cutting back, b/c of his chronic pain. Additionally, he is unwilling to stay in the hospital beyond his 72h hold, in order tofacilitate a door to door transfer to [facility]MEEN tx. He was educated on his risk of relapse and reminded of his recent hospitalizations, related to use / overdosing. Pt was reminded that he himself stated someone could have in relation to the events prior to this admission. He does not see his drinking as a problem, stating, I don't drive. Manager Convention noted that he recently missed a court date for aDUI charge and, last hospitalization here, he was brought here for a legal blood draw after being stopped for erratic driving. When asked about the pill bottles that were scattered around him, when found HEAD [employer], he could not give an explanation. Will file a petition for civil commitment. 07/22: Quite tense, irritable, and rude on approach. Said he wants to d/c directly to [facility] he suspects there must be a bench warrant issued for his arrest d/t missing a DUI court date a few weeks back. He slept better, but asked for PRN Benadryl instead of PRN Melatonin. Thought processwas linear. No overt paranoia. Reported +AH last edil. [facility] is supporting petition for commitment. 07/23: He is frustrated w not being able to access an opioid or Voltaren for his chronic pain. He has no insight into risk / benefit considerations. He is resistant to any treatment that takes more effort than popping a pill. He reluctantly agreed to a pain medicine consult. He was noted to be diaphoretic, but has not been scoring high enough on CIWA to warrant PRN BZD. He talked at length about his oldest son's by hanging and about how he has struggled in the aftermath and has failed to adequately support his second son over the years. His second son has attempted suicide numerous timesand is currently in [facility]MEEN tx. He added, I must before him. The pt talked about his hinduism bel iefs, about not believing in suicide, but having come to the conclusion that even someone who does not believe in suicide can get to the point of attempting suicide. He denied thoughts of self harm, SI, HI, and VH. He reported +AH and +tactile hallucinations >> hypnagogic-like. Affect was anxious, tense, and irritable. 07/24: No diaphoresis today. Using PRNs for sleep. Denied further AH, VH, or tactile hallucinations.(However, his report of hallucinations varies from person to person.) Agreeable to med trials for various concerns, but tends to want to immediately jump to large doses. Anxious, intense at times, and restless. Thought process is largely linear. Denied SI / HI. He mentioned this hospitalization as the 4th time he's been in the ICU in as many months. 07/25: More elevated, animated, intense, and irritable. Continues restless. Med seeking - more of (to include opioids, BZD, and now stimulants, but also other more benign meds) - and wanting to go straight to high doses. He is a very inconsistent historian w details changing from day to day, person to person. Memory impairment is noted. He noted that he did not trash his kidneys as badly prior to this admission as compared to his other 3 recent admissions. He minimized the significance of his past renal injury and dismissed the warnings he has received by healthcare professionals re the risks to his vital organs. He called them over-dramatic. Denied AH / SI. +Paranoia re demons? Hyper-verbal. 07/26: Continued fixation on medications, feels he is in need of something additional for both pain and sleep -- pt offers diclofenac and Xanax as effective interventions, but understanding when web content writer offered renal concerns with diclofenac and habit-forming tendencies with Xanax. Pt hopeful for Benadryl for sleep which was agreed upon. Discussed Gabapentin additionally as options for both pain, sleep and RLS. 07/27: Less intense, irritable than yesterday and reporting sufficient sleep for the first time in years. Generally fixated on pain, medication options in case things fail down the road during current hospitalization. Apart from this, pt occasionally offers comments about how Xanax and opiate medications would simplify my long med list, but redirectable. 07/28: Largely unchanged, though briefly frustrated with not having Robaxin scheduled. Will do so moving forward per his request. Feels ready for CD referrals, aware that final commitment hearing is not until next week. 07/29: Planning out possible medication changes on a daily basis, frequently asks what next step is if certain medications do not work for him long-term, additionally routes interview back to discussion of pain/diclofenac several times throughout interaction. Very focused on medication regimen schedule. 07/30: Continued fixation on possible medication options moving forward, today mostly surrounding safety profile of medications with alcohol use. Additionally reported voices over the last couple of days, previously withheld from treatment team as he thought this would result in Seroquel being takenaway. 07/31: Unchanged; required. Robaxin last night for sleep, had difficulty sleeping through the night for 1st time in several days. Agreed to keep medications as are for now, revisit sleep augmentation if issues persist. Otherwise, no changes. 08/01: Persistent request to have suicidal ideation/status clarified by current team, fearful of having this label carried over into time at treatment. Otherwise, reported worse sleep for the past twodays and would appreciate increase in amitriptyline which web content writer agreed to. 08/02: Pt calm, cooperative and medication compliant. Denies psych symptoms. He reports being in agreement with need for CD treatment but argues 3 months is too long as he is the primary provider for his adult son who also struggles with alcohol use/abuse. Discussed benefits for in-patient and hopefully pt will be able to help his son through addiction but the pt argues other james. He believes hisproblem is not meth rather alcohol and he can limit himself. Pt is argumentative and has no insighton dangerous behaviors poses increased risk. Reports adequate sleep since admission. 08/03: Stressed, anxious about court hearing tomorrow. Anticipates he will be committed but does notlike the language as it seems forceful rather then voluntary. Discussed CD tx options and support systems as he work to archived sobriety. Motivated to seek help so as to help his son. Report good sleep the past nights. Requested his records be doctored for suicide because he was never suicidal and does not want belongings taken away when he gets to treatment. 08/04: Mixed of emotions today. Pt had courts earlier today and is excited he was given a SOC as it gives him more options and means of helping his son as well. Pt continued to express committment to CD treatment. He hopes he and son can team up and do AA together. Reports adequate sleep at night. Denies psych symptoms. Re-consulted addiction medicine as the pt is more open to discussion/medication assisted treatment. 08/05: Improved mood. Pt is more open-minded to recommendations regarding treatment. He reports improve sleep on current regimen. He hoes that continues. Discussed sleep hygiene, recommended CBT-I forongoing insomnia. 08/06: Continue to have good sleep. Remains committed to CD tx and then AA but opposed to MAT. Pt wasseen by Addiction med and he was started on Naltrexone. Pt is refusing med stating he does not need it. He is minimizing his alcohol and stating he can self limit his alcohol usage. Shows limited insight into his addiction. Using Zyprexa PRN almost every night to resume sleep which has been effective. Will continue to evaluate the need for scheduled Zyprexa as pt denies psych symptoms. Pt was seen by spiritual care and that has helped improved his mood. 08/07: Pt is feeling sore but otherwise good. Reports adequate sleep despite some interruption during the night. Pt requesting diclofenac oral instead of the gel for chronic pain. Chart review showedconsult from pain med and med hold off on diclofenac due to concerns for kidney issues however creatinine (07/22 was 0.96) has normalized. Will reach out to pain management to see if it is appropriate to add diclofenac and d/c motrin due to significant chronic pain history. Pt case is challengingas he is determined to resolve to getting his meds from online sources. 08/08: Calm and cooperative. Refused Naltrxone so it was discontinued. Lab draw showed elevated creatinine levels of 1.24. Will plan to repeat lab on 08/10. Remains fixated on pain management. 08/09: Pt reported currently getting decent sleep. He perseverated on pain control and on getting either Ibu or Voltaren prescribed again. He has no insight into the risk of renal insult. He suggested being prescribed a little bit of an opioid to have on hand when things get really bad. Nothingoutside of a pill is doable after d/c. Pt lacks accountability for his past behaviors and use andthe resulting consequences. Referral to [place]. Speech is hyper- verbal / over-inclusive and somewhat pressured. He is less restless. No overt paranoia. 08/10: Good participation in OT groups. Overnight sleep was better than usual. (Nearly 8h documented.) He is hopeful for YASMEEN tx at [place]. Per his usual, seemingly in hopes of getting a prescription, he added a veiled threat to use NSAIDs and/or opioids on his own after d/c, feeling he has no other choice. No insight into his kidney health or addiction. I'd rather my kidneys fail than live inpain. 08/11: Less restless. Less med seeking. Reported very acceptable sleep and improved pain control. Denied further paranoia or AH (as reported during initial part of hospitalization). Eager for YASMEEN tx.He became emotional when speaking about his mother and son. Pt was able to verbalize his positive reasons (mostly family related) for staying sober. He looks forward to my kidneys healing so that he can resume Voltaren. 08/12: Good OT attendance. Pt reported last night's sleep to be pretty good, but as usual, he did wake and take PRNs (for sleep and pain). Despite acknowledging that his pain control is reasonable atpresent, he perseverates on what might happen once he returns home after treatment, becoming irritable and intense. He says topicals will not be suitable. He again made what seem like threats to go back to using Voltaren (and Xanax) even if it means taking 10 years off the top of my life. 08/13: Visible in the milieu. Adequate sleep, although he does wake and get PRNs, usually around ~2a.At length, we discussed his kidney health, avoiding nephrotoxins, and maintaining adequate hydration. He remains focused on restarting NSAIDs, sometimes Xanax, and especially Voltaren, noting, I have no choice! He poses different scenarios, wanting the recommendation that he wants to hear. 08/14: Engaged w peers last edil. Today, ?paranoid re staff playing me over the shaver. He offered that scheduled Zyprexa at bedtime seems unnecessary as it has not changed his sleep pattern. We agreeto d/c and continue PRN. Continues hopeful of resuming Voltaren at some point. He believes the amount of bubbles in his urine indicates the level of renal function. 08/15: Verbalized satisfaction w his sleep and pain control. However, he feels he has no choice but to resume NSAIDs / Voltaren at some point. In his opinion, the benefit of improved pain outweighs the risk of CKD / dialysis / shortened life span. We discussed his problematic [employer] insurance and options for YASMEEN tx after d/c. He has been social and encouraging to peers. He is improved. 08/16: Similar concerns expressed surrounding pain, coverage for YASMEEN tx. Will likely be looking at discharge to family with AA attendance expected given inability to pay for treatment. Further, needs f/u with pain medicine established. 08/17: Largely unchanged; pain patches remain on bilateral sides of neck. No concerns apart from wishing Robaxin be scheduled, worries that this will not be offered at discharge. Discussed that medications are prescribed typically until f/u care outpatient. 08/18: Calm, appreciative of current medication regimen. Optimistic surrounding AA, NA, living with Mom. Looking forward to Father's Day as well. Discussed hopes to get son involved with AA along withgoing to [facility] with him. Aware of potential upcoming discharge and feels confident in his readiness. Declined naltrexone. 08/19: Friendly, somewhat guarded in discussing meeting this AM with ACT team -- told web content writer It would take an absolute moron to be participatory in this meeting without his water system operator present. Unfortunately, this culminated in cancellation of meeting to coordinate care, meaning pt will not be discharging today/must remain at least through the weekend. Plan to reconvene Wednesday AM. DIAGNOSES & PLAN Principal Psychiatric / Substance Use Diagnoses: - encephalopathy s/p ingestion: improved - bipolar disorder w psychosis vs SCAD by hx - r/o substance induced psychosis - alcohol use disorder, severe - methamphetamine use disorder, severe - BZD use disorder, severe - alcohol / BZD withdrawal Medical Concerns to be addressed: - USAMA: sCr again elevated after recent NSAID use - ?element of CKD? - mild rhabdomyolysis: improved - chronic back pain: see Medicine / Pain consult - HTN: norvasc, increased toprol xl - GERD: restarted PPI - HLD: restarted statin - LUTS: flomax - Patient with moderate malnutrition in the context of social/environmental circumstances during hospital stay and remains with no acute or chronic nutrition problems at this time. Patient requiring additional resources due to degree of malnutrition during hospital stay. Dietitian following with the following nutrition therapy plan: 1.) Ok to continue boost TID 2.) RDN to sign off, please consult as needed Medication Ordered/Consults/Labs/Tests Ordered: 07/18: Delirium precautions ordered. Seroquel ordered 100 mg QHS and 50 mg q4PRN. Zyprexa 5 PO mg vs10 mg IV - TID PRN if needed. UDS ordered. Will order high dosed Thiamine. Will order addiction consult. Gabapentin 300 mg TID ordered for withdrawal symptoms. 07/19: Increase quetiapine to 100mg TID. [employer] dose was 800mg qHS. UDS+ for amphetamines. 07/20: Will give Seroquel 200mg at bedtime this edil then combine doses / change dose to 400mg po qhs. Will titrate to [employer] dose of 800mg po qhs as tolerated / indicated. Hold Lexapro for now. He has not been consistently taking it. Increase Neurontin to 600mg po TID. Offer Zyprexa 10mg po BID PRN. Continue CIWA protocol w PRN Valium and PRN Clonidine. 07/21: Lidocaine patch daily. Medicine consult if PC is issued. 07/22: Medicine consult for chronic back pain management. Increase Seroquel to 500mg po qhs. D/c PRNMelatonin and replace w PRN Benadryl. 07/23: Increase Seroquel to 600mg po qhs. Per his request, change Flexeril 10mg from TID PRN to TID.Will avoid Requip for RLS as it could worsen his DC sxs. Instead, will increase Neurontin to 900mg po TID. Spiritual care consult ordered. 07/24: Advance Seroquel to 700mg po qhs. Add Trazodone 50mg po qhs + 50mg po qhs PRN. Changed Benadryl to PRN itching only as this could worsen RLS, if that is truly what he has. Will discuss the possibility of akathisia (vs RLS) tomorrow. 07/25: Increase Seroquel to his [employer] dose of 800mg po qhs. Add a 2nd Lidocaine patch. Maximize daily APAP dose by allowing a daily PRN dose to his TID scheduled APAP. Pain Management consult placed. Trial Cogentin 1mg po BID for possible akathisia. D/c PRN Benadryl as he has Trazodone available. D/c CIWA. 07/26: MONTEZ Burr, may consider non-cardioselective beta messi in place of Toprol (ie. Inderal) for better akathisia coverage if RLS symptoms do not improve with increased Gabapentin. 07/27: Desonide cream BID for dermatitis. 07/28: Scheduled Robaxin 750 mg hs per pt request. 07/29 -- : No change. 08/01: EKG 08/02 AM. Amitriptyline to 100 mg hs. 08/02-: No change 08/04: Consult Addiction medicine 08/05: Per addiction med Naltrexone 50 mg daily 08/06: No change 08/07: Recheck BMP in the AM 08/08: Labs reviewed. Creatinine elevated 1.24. Recheck BMP on 08/10. Discontinue Naltrexone and Motrin. 08/09: Resume APAP 1000mg po TID. 08/10: Add an additional Lidoderm for his neck. Increase Toprol XL to 50mg po qday. 08/11: No med changes. 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 08/13: No med changes. 08/14: D/c scheduled bedtime Zyprexa as it has not changed his sleep pattern. (Continue w PRN.) 08/15 -- : No med changes. sCr remains mildly elevated. Avoid nephrotoxins. 08/18 -- 08/19: No changes Discharge appointments needed: PCP, Pain Medicine, Addiction Medicine (if pt is willing) Milieu Management: Admit to: Medicine (IPF) >> NE4 Legal: >> >> SOC Acuity level: YELLOW Encouraged the patient to participate in unit activities. Level of Observation: No additional monitoring needed RE-CERTIFICATION & RISK ASSESSMENT The patient continues to need, on a daily basis, active inpatient psychiatric treatment for ongoingdiagnostic assessment and treatment of the following symptoms: AH, paranoia, substance withdrawal, and possible SI w possible SA prior to admission. The treatment can reasonably be expected to improve the patient's condition. Estimated length of stay is 30 days. Anticipated disposition: YASMEEN tx Risk Assessment: assault: Medium - paranoid Suicide Risk: Low Patient Strengths: willing to take medications Patient was additionally evaluated in person by Dr. Hatch, who agrees with the above documentation and plan. Jaden Wetzel PA-C * Jaden Wetzel PA-C - 08/19/2023 8:35 AM CDT [facility] Psychiatry Progress Note PATIENT NAME: Nicanor Alvarado DATE OF SERVICE: 08/19/2023 ATTENDING PRACTITIONER: Jaden Wetzel PA-C HOSPITAL DAY # 30 CHIEF COMPLAINT subsequent inpatient psychiatric encounter INTERVAL HISTORY Nicanor Alvarado was seen in f/u by web content writer and APC Fellow, where he is seen sitting on unit and agreed to interview. Continued improvement noted to sleep, states he is happy with the current regimenand looks forward to continuing out of the hospital. Discussed plans for f/u with Primary Care, Psychiatry and Pain Medicine, all of which pt aware of and eager to continue with. Pt returned to idea of supporting kidney health, not drinking and his personal hopes to resume Voltaren po in the future. Reported hopes to discharge soon, as he would love to see family for Father's Day. Discussed difficulty his son is having these days and would like to provide support to him, see if he would be willing to attend AA and/or [facility] with him moving forward. Pt slightly irritable when discussion surrounding naltrexone arose, says this was discussed probably three times, now four, and my answer's the same each time. Not interested in resumption. REVIEW OF SYSTEMS Constitutional: did not endorse physical health concerns aside from as discussed above + chronic back / neck pain Psychiatric: did not endorse thoughts of self harm, SI, HI, paranoia, AH, and/or VH Medication side effects: none endorsed aside from dry mouth CHART REVIEW & MULTIDISCIPLINARY TEAM MEETING Met with the multidisciplinary treatment team and discussed care and treatment planning. RN Report: Subjective: I need some Robaxin now. My back is 5 and my neck is 4. Objective: Tom has been visible on the unit, watching tv, talking on the phone. Social with peers. He went to the activity room with peers. He's been calm and controlled. Denies psych symptoms. Robaxin given prn at 1548, pain 4-/10, and also gets scheduled HS dose. Reports some relief from meds. Pain patches removed when it was time. SW Report: reviewed and discussed Group attendance and participation: 03/10 OT PRN medications: reviewed MAR OBJECTIVE Hours of Sleep: Patient Vitals for the past 72 hrs: Sleep Hours 08/19/23 0633 7.8 HOURS 08/18/23 2233 1.3 HOURS 08/18/23 1442 1 HOURS 08/18/23 0630 8 HOURS 08/17/23 2235 1.3 HOURS 08/17/23 1507 0.3 HOURS 08/17/23 0703 8.3 HOURS 08/16/23 2231 11 HOURS 08/16/23 1440 0.5 HOURS LABS: No results found for this or any previous visit (from the past 24 hour(s)). Current Facility-Administered Medications Medication Dose Route Frequency acetaminophen (TYLENOL) tablet 1,000 mg 1,000 mg Oral DAILY PRN acetaminophen (TYLENOL) tablet 1,000 mg 1,000 mg Oral TID amitriptyline (ELAVIL) tablet 100 mg 100 mg Oral At Bedtime amLODIPine (NORVASC) tablet 5 mg 5 mg Oral Daily aspirin chewable tablet 81 mg 81 mg Oral Daily atorvastatin (LIPITOR) tablet 20 mg 20 mg Oral Evening senna (SENOKOT) tablet 2 Tablet 2 Tablet Oral BID PRN And polyethylene glycol (MIRALAX) oral powder 17 g 17 g Oral DAILY PRN And bisacodyl (DULCOLAX) rectal suppository 10 mg 10 mg Rectal DAILY PRN calcium carbonate (TUMS) chewable tablet 1,000 mg 1,000 mg Oral Q4H PRN desonide (DESOWEN) 0.05 % cream Topical BID diclofenac (VOLTAREN) gel 2 g 2 g Topical QID PRN diphenhydrAMINE (BENADRYL) capsule 50 mg 50 mg Oral At Bedtime diphenhydrAMINE (BENADRYL) capsule 50 mg 50 mg Oral DAILY PRN folic acid tablet 1 mg 1 mg Oral Daily gabapentin (NEURONTIN) capsule 1,200 mg 1,200 mg Oral TID lidocaine (ASPERCREAM) 4 % patch 1 Patch 1 Patch Transdermal Daily lidocaine (ASPERCREAM) 4 % patch 2 Patch 2 Patch Transdermal Daily lidocaine (XYLOCAINE) 5 % ointment Topical TID PRN methocarbamol (ROBAXIN) tablet 750 mg 750 mg Oral TID PRN methocarbamol (ROBAXIN) tablet 750 mg 750 mg Oral At Bedtime metoprolol succinate (TOPROL XL) extended release tablet 50 mg 50 mg Oral Daily nicotine (COMMIT) lozenge 2 mg 2 mg Oral Q1H PRN Or nicotine (NICORETTE) gum 2 mg 2 mg Oral Q1H PRN OLANZapine (ZyPREXA ZYDIS) disintegrating tablet 10 mg 10 mg Oral BID PRN pantoprazole DR (PROTONIX) tablet 40 mg 40 mg Oral Daily at 6 am QUEtiapine (SEROquel) tablet 800 mg 800 mg Oral At Bedtime tamsulosin (FLOMAX) capsule 0.4 mg 0.4 mg Oral Daily after a meal thiamine (VITAMIN B-1) tablet 100 mg 100 mg Oral Daily Food intake: Amount of Diet Consumed (last 3 days) Date/Time Intake (%) 08/19/23 0821 100%;Breakfast 08/18/23 1700 100%;Dinner 08/18/23 1200 100%;Lunch 08/18/23 0800 100%;Breakfast 08/17/23 1722 100%;Dinner 08/17/23 1211 100%;Lunch 08/17/23 0800 100%;Breakfast 08/16/23 1200 100%;Lunch 08/16/23 0803 100%;Breakfast ALLERGY Allergies Allergen Reactions Valproic Acid Other, see comments Excessive sedation Naltrexone Other, see comments Pt told RN he did not like it so he stopped taking it. MENTAL STATUS EXAM Filed Vitals: 08/17/23 1600 08/18/23 0827 08/18/23 1100 08/18/23 1712 BP: (!) 146/94 (!) 142/85 (!) 141/88 (!) 134/97 Pulse: 80 83 86 75 Resp: Temp: 98.2 ??F (36.8 ??C) 97.5 ??F (36.4 ??C) 98.4 ??F (36.9 ??C) TempSrc: Skin Skin Skin SpO2: 98% 98% 97% Weight: Height: Appearance: alert, improved eye contact, wearing scrubs, adequate grooming, appears older than stated age. Lidocaine patches on both sides of neck. Behavior: engaged, less needy, less med seeking, sometimes externalizes blame, often threatens to resume contraindicated rx after d/c Motor: less restless Gait and Station: wide-based, steady Speech: normal in rate, normal in volume, less hyper-verbal / over-inclusive Language: intact Thought process: largely linear although rambling Thought content: did not endorse thoughts of self harm, SI, HI, AH, and/or VH; no overt paranoid / delusional content offered; focused on sleep and pain Associations: grossly intact Mood: good Affect: less anxious, more neutral, can become intense when discussing pain Orientation: grossly oriented Attention: intact Insight: poor Judgment: poor CONSULTATION [facility], 07/24/23: Assessment / Recommendations Follow up on labs show creat 0.96, returned to normal range and resolved USAMA. K is 5.1 but sample hemolyzed. med consulted on 07/23/23 because of chronic back/neck/shoulder pain. To me, pt reports chronic low back, B/L hip, and shoulder pain. Frustrated that doctors will not prescribe him opioids, and that they recommend against diclofenac due to kidney issues. 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 In several studies, NSAIDshave shown to further increase the risk for thrombotic CV events as well as bleeding events. He is on ASA and addition of NSAID will increase risk of GI bleeding, as well. No current red flag symptoms for neck/back/shoulder pain, actually appears more controlled than previously per patient's report/chart review. Plan: - gabapentin has been helpful - continue 600 mg TID - lidocaine patch lower back has been helpful - continue daily; also offer additional lidocaine patch for neck or shoulder pain if pt desires - tylenol 650 mg prn changed to 1000 mg TID scheduled - diclofenac gel ordered instead to use topically as less systemic absorption - Given patient's chronic difficult to control pain and his h/o of self medicating with meds he buys off internet, I do think it is important to find a pain regimen that will control pt's chronic pain in a meaningful way so that he is less likely to use the internet to buy pills that are not prescribed to him - given it is the weekend, pain team is not available, but would consider primary team consult them and/or send OP referral to pain clinic for patient at hospital discharge. Pain team was consulted during a previous admission in May 2023, but he was not interested in any options other than opioids at that time. He did not ask me about opioids during our visit, so I believe he may nowbe open to more options, perhaps even intraarticular injections for shoulder/hip/back pain. med will sign off. Please reach out with any questions/concerns. Orin Nelson PA-C PAIN MANAGEMENT, 07/25: TREATMENT RECOMMENDATIONS/PLAN: Increase gabapentin to 1200mg TID Elavil 50mg QHS for sleep and nerve pain Change flexeril to robaxin 750 mg QID PRN NSAIDS could be considered in the future. Overall high risk patient with severe substance use disorder Will add non-opioid adjuvants. I did talk to him about suboxone; since he doesn't have opioid use disorder, this would not be my first preference. However, I would avoid pure opioid agonists at this time. ASSESSMENT AND RECOMMENDATIONS DISCUSSED WITH: Kristin Rutledge PA-C Thank you for consulting the Inpatient Pain Management Service. Please contact me with any questions or concerns. Aaron Galicia M.D. Addiction Medicine 08/09/23: ASSESSMENT/PLAN: 1. Alcohol use disorder, severe: Recent DUI. Patient is agreeable to treatment. States that he is on a stay of commitment. Challenged him to throw himself into his recovery. Discussed strategies for sobriety. Discussed the benefit of recovery meetings. Currently tolerating naltrexone but states he does not want to continue it. We will continue at discharge. 2. Methamphetamine/benzodiazepine use disorder: Discussed benefits of recovery meetings. Discussed benefits of 90 days of sobriety. Agrees to follow-up in my clinic. Bossman Franco MD CAM Alvarado is a 57 y.o. male who has been admitted to station [facility] for AH, paranoia, substance withdrawal, and possible [...] his room over the weekend. Admitted to [facility]: 07/20: Restless on exam. Reported +AH and +paranoia (under investigation - which he is starting toquestion as the truth). Less disorganized as compared to when on Medicine. He said he was not really sure about the events [employer]. He drinks alcohol heavily, nearly 3L of [place] rum per week. He has been prescribed Lexapro, but he is not consistent w taking it. Sometimes I need more, referring to self medicating. He used methamphetamine [employer]. He said he has +AH at his baseline, but while using methamphetamine, the +AH escalated and, it got bad. Someone could have . It all seemed so real. He said he began to think that he would be better off if he just used all of the methamph etamine, so he used some IV. His paranoia escalated and he began to feel like someone was going to come through his door, so I ate the rest of the bag b/c I thought I would need the rage and energy to fight them off. Guarded at times. Hesitantly, he denied having SI and he denied the [employer] event asa SA. 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 When initially in the ED, he reported +SI (also while on Medicine) and, when questioned about ingestion, he replied w not enough. Per chart review from the 05/2023 Medicine admission (admitted for erratic driving / legal blood draw, while in the ED he had a syncopal episode and required Medicine admission then transfer to [facility]): He reports that he had about 2 hospitalizations in the past month. One in [facility] (04/24/2022) for acute toxic encephalopathy, drug overdose (cannabinoids, methamphetamine), and alcohol withdrawal w/ delirium tremens which required large amount of benzo. He says he had another hospitalization in [place]. He reports that one of these hospitalizations led to ICU stay and he was told that his kidney were failing, but no detailed records of outside hospital stay are available on admission. 07/21: Restless, argumentative, anxious, irritable, and illogical. He is agreeable to YASMEEN tx, especially to access psychotherapy, knowing it will likely eventually be court ordered. However, he also stated that he has no intentions of quitting alcohol all together, but only cutting back, b/c of his chronic pain. Additionally, he is unwilling to stay in the hospital beyond his 72h hold, in order tofacilitate a door to door transfer to Y[facility]MEEN tx. He was educated on his risk of relapse and reminded of his recent hospitalizations, related to use / overdosing. Pt was reminded that he himself stated someone could have in relation to the events prior to this admission. He does not see his drinking as a problem, stating, I don't drive. Manager Convention noted that he recently missed a court date for aDUI charge and, last hospitalization here, he was brought here for a legal blood draw after being stopped for erratic driving. When asked about the pill bottles that were scattered around him, when found [employer], he could not give an explanation. Will file a petition for civil commitment. 07/22: Quite tense, irritable, and rude on approach. Said he wants to d/c directly to [facility] he suspects there must be a bench warrant issued for his arrest d/t missing a DUI court date a few weeks back. He slept better, but asked for PRN Benadryl instead of PRN Melatonin. Thought processwas linear. No overt paranoia. Reported +AH last edil. [facility] is supporting petition for commitment. 07/23: He is frustrated w not being able to access an opioid or Voltaren for his chronic pain. He has no insight into risk / benefit considerations. He is resistant to any treatment that takes more effort than popping a pill. He reluctantly agreed to a pain medicine consult. He was noted to be diaphoretic, but has not been scoring high enough on CIWA to warrant PRN BZD. He talked at length about his oldest son's by hanging and about how he has struggled in the aftermath and has failed to adequately support his second son over the years. His second son has attempted suicide numerous timesand is currently in [facility] tx. He added, I must before him. The pt talked about his hinduism bel iefs, about not believing in suicide, but having come to the conclusion that even someone who does not believe in suicide can get to the point of attempting suicide. He denied thoughts of self harm, SI, HI, and VH. He reported +AH and +tactile hallucinations >> hypnagogic-like. Affect was anxious, tense, and irritable. 07/24: No diaphoresis today. Using PRNs for sleep. Denied further AH, VH, or tactile hallucinations.(However, his report of hallucinations varies from person to person.) Agreeable to med trials for various concerns, but tends to want to immediately jump to large doses. Anxious, intense at times, and restless. Thought process is largely linear. Denied SI / HI. He mentioned this hospitalization as the 4th time he's been in the ICU in as many months. 07/25: More elevated, animated, intense, and irritable. Continues restless. Med seeking - more of (to include opioids, BZD, and now stimulants, but also other more benign meds) - and wanting to go straight to high doses. He is a very inconsistent historian w details changing from day to day, person to person. Memory impairment is noted. He noted that he did not trash his kidneys as badly prior to this admission as compared to his other 3 recent admissions. He minimized the significance of his past renal injury and dismissed the warnings he has received by healthcare professionals re the risks to his vital organs. He called them over-dramatic. Denied AH / SI. +Paranoia re demons? Hyper-verbal. 07/26: Continued fixation on medications, feels he is in need of something additional for both pain and sleep -- pt offers diclofenac and Xanax as effective interventions, but understanding when web content writer offered renal concerns with diclofenac and habit-forming tendencies with Xanax. Pt hopeful for Benadryl for sleep which was agreed upon. Discussed Gabapentin additionally as options for both pain, sleep and RLS. 07/27: Less intense, irritable than yesterday and reporting sufficient sleep for the first time in years. Generally fixated on pain, medication options in case things fail down the road during current hospitalization. Apart from this, pt occasionally offers comments about how Xanax and opiate medications would simplify my long med list, but redirectable. 07/28: Largely unchanged, though briefly frustrated with not having Robaxin scheduled. Will do so moving forward per his request. Feels ready for CD referrals, aware that final commitment hearing is not until next week. 07/29: Planning out possible medication changes on a daily basis, frequently asks what next step is if certain medications do not work for him long-term, additionally routes interview back to discussion of pain/diclofenac several times throughout interaction. Very focused on medication regimen schedule. 07/30: Continued fixation on possible medication options moving forward, today mostly surrounding safety profile of medications with alcohol use. Additionally reported voices over the last couple of days, previously withheld from treatment team as he thought this would result in Seroquel being takenaway. 07/31: Unchanged; required. Alexisaxin last night for sleep, had difficulty sleeping through the night for 1st time in several days. Agreed to keep medications as are for now, revisit sleep augmentation if issues persist. Otherwise, no changes. 08/01: Persistent request to have suicidal ideation/status clarified by current team, fearful of having this label carried over into time at treatment. Otherwise, reported worse sleep for the past twodays and would appreciate increase in amitriptyline which web content writer agreed to. 08/02: Pt calm, cooperative and medication compliant. Denies psych symptoms. He reports being in agreement with need for CD treatment but argues 3 months is too long as he is the primary provider for his adult son who also struggles with alcohol use/abuse. Discussed benefits for in-patient and hopefully pt will be able to help his son through addiction but the pt argues other james. He believes hisproblem is not meth rather alcohol and he can limit himself. Pt is argumentative and has no insighton dangerous behaviors poses increased risk. Reports adequate sleep since admission. 08/03: Stressed, anxious about court hearing tomorrow. Anticipates he will be committed but does notlike the language as it seems forceful rather then voluntary. Discussed CD tx options and support systems as he work to archived sobriety. Motivated to seek help so as to help his son. Report good sleep the past nights. Requested his records be doctored for suicide because he was never suicidal and does not want belongings taken away when he gets to treatment. 08/04: Mixed of emotions today. Pt had courts earlier today and is excited he was given a SOC as it gives him more options and means of helping his son as well. Pt continued to express committment to CD treatment. He hopes he and son can team up and do AA together. Reports adequate sleep at night. Denies psych symptoms. Re-consulted addiction medicine as the pt is more open to discussion/medication assisted treatment. 08/05: Improved mood. Pt is more open-minded to recommendations regarding treatment. He reports improve sleep on current regimen. He hoes that continues. Discussed sleep hygiene, recommended CBT-I forongoing insomnia. 08/06: Continue to have good sleep. Remains committed to CD tx and then AA but opposed to MAT. Pt wasseen by Addiction med and he was started on Naltrexone. Pt is refusing med stating he does not need it. He is minimizing his alcohol and stating he can self limit his alcohol usage. Shows limited insight into his addiction. Using Zyprexa PRN almost every night to resume sleep which has been effective. Will continue to evaluate the need for scheduled Zyprexa as pt denies psych symptoms. Pt was seen by spiritual care and that has helped improved his mood. 08/07: Pt is feeling sore but otherwise good. Reports adequate sleep despite some interruption during the night. Pt requesting diclofenac oral instead of the gel for chronic pain. Chart review showedconsult from pain med and med hold off on diclofenac due to concerns for kidney issues however creatinine (07/22 was 0.96) has normalized. Will reach out to pain management to see if it is appropriate to add diclofenac and d/c motrin due to significant chronic pain history. Pt case is challengingas he is determined to resolve to getting his meds from online sources. 08/08: Calm and cooperative. Refused Naltrxone so it was discontinued. Lab draw showed elevated creatinine levels of 1.24. Will plan to repeat lab on 08/10. Remains fixated on pain management. 08/09: Pt reported currently getting decent sleep. He perseverated on pain control and on getting either Ibu or Voltaren prescribed again. He has no insight into the risk of renal insult. He suggested being prescribed a little bit of an opioid to have on hand when things get really bad. Nothingoutside of a pill is doable after d/c. Pt lacks accountability for his past behaviors and use andthe resulting consequences. Referral to [place]. Speech is hyper- verbal / over-inclusive and somewhat pressured. He is less restless. No overt paranoia. 08/10: Good participation in OT groups. Overnight sleep was better than usual. (Nearly 8h documented.) He is hopeful for YASMEEN tx at [place]. Per his usual, seemingly in hopes of getting a prescription, he added a veiled threat to use NSAIDs and/or opioids on his own after d/c, feeling he has no other choice. No insight into his kidney health or addiction. I'd rather my kidneys fail than live inpain. 08/11: Less restless. Less med seeking. Reported very acceptable sleep and improved pain control. Denied further paranoia or AH (as reported during initial part of hospitalization). Eager for YASMEEN tx.He became emotional when speaking about his mother and son. Pt was able to verbalize his positive reasons (mostly family related) for staying sober. He looks forward to my kidneys healing so that he can resume Voltaren. 08/12: Good OT attendance. Pt reported last night's sleep to be pretty good, but as usual, he did wake and take PRNs (for sleep and pain). Despite acknowledging that his pain control is reasonable atpresent, he perseverates on what might happen once he returns home after treatment, becoming irritable and intense. He says topicals will not be suitable. He again made what seem like threats to go back to using Voltaren (and Xanax) even if it means taking 10 years off the top of my life. 08/13: Visible in the milieu. Adequate sleep, although he does wake and get PRNs, usually around ~2a.At length, we discussed his kidney health, avoiding nephrotoxins, and maintaining adequate hydration. He remains focused on restarting NSAIDs, sometimes Xanax, and especially Voltaren, noting, I have no choice! He poses different scenarios, wanting the recommendation that he wants to hear. 08/14: Engaged w peers last edil. Today, ?paranoid re staff playing me over the shaver. He offered that scheduled Zyprexa at bedtime seems unnecessary as it has not changed his sleep pattern. We agreeto d/c and continue PRN. Continues hopeful of resuming Voltaren at some point. He believes the amount of bubbles in his urine indicates the level of renal function. 08/15: Verbalized satisfaction w his sleep and pain control. However, he feels he has no choice but to resume NSAIDs / Voltaren at some point. In his opinion, the benefit of improved pain outweighs the risk of CKD / dialysis / shortened life span. We discussed his problematic [employer] insurance and options for YASMEEN tx after d/c. He has been social and encouraging to peers. He is improved. 08/16: Similar concerns expressed surrounding pain, coverage for YASMEEN tx. Will likely be looking at discharge to family with AA attendance expected given inability to pay for treatment. Further, needs f/u with pain medicine established. 08/17: Largely unchanged; pain patches remain on bilateral sides of neck. No concerns apart from wishing Robaxin be scheduled, worries that this will not be offered at discharge. Discussed that medications are prescribed typically until f/u care outpatient. 08/18: Calm, appreciative of current medication regimen. Optimistic surrounding AA, NA, living with Mom. Looking forward to Father's Day as well. Discussed hopes to get son involved with AA along withgoing to Yarsanism [place] with him. Aware of potential upcoming discharge and feels confident in his readiness. Declined naltrexone. DIAGNOSES & PLAN Principal Psychiatric / Substance Use Diagnoses: - encephalopathy s/p ingestion: improved - bipolar disorder w psychosis vs SCAD by hx - r/o substance induced psychosis - alcohol use disorder, severe - methamphetamine use disorder, severe - BZD use disorder, severe - alcohol / BZD withdrawal Medical Concerns to be addressed: - USAMA: sCr again elevated after recent NSAID use - ?element of CKD? - mild rhabdomyolysis: improved - chronic back pain: see Medicine / Pain consult - HTN: norvasc, increased toprol xl - GERD: restarted PPI - HLD: restarted statin - LUTS: flomax - Patient with moderate malnutrition in the context of social/environmental circumstances during hospital stay and remains with no acute or chronic nutrition problems at this time. Patient requiring additional resources due to degree of malnutrition during hospital stay. Dietitian following with the following nutrition therapy plan: 1.) Ok to continue boost TID 2.) RDN to sign off, please consult as needed Medication Ordered/Consults/Labs/Tests Ordered: 07/18: Delirium precautions ordered. Seroquel ordered 100 mg QHS and 50 mg q4PRN. Zyprexa 5 PO mg vs10 mg IV - TID PRN if needed. UDS ordered. Will order high dosed Thiamine. Will order addiction consult. Gabapentin 300 mg TID ordered for withdrawal symptoms. 07/19: Increase quetiapine to 100mg TID. [employer] dose was 800mg qHS. UDS+ for amphetamines. 07/20: Will give Seroquel 200mg at bedtime this edil then combine doses / change dose to 400mg po qhs. Will titrate to [employer] dose of 800mg po qhs as tolerated / indicated. Hold Lexapro for now. He has not been consistently taking it. Increase Neurontin to 600mg po TID. Offer Zyprexa 10mg po BID PRN. Continue CIWA protocol w PRN Valium and PRN Clonidine. 07/21: Lidocaine patch daily. Medicine consult if PCH is issued. 07/22: Medicine consult for chronic back pain management. Increase Seroquel to 500mg po qhs. D/c PRNMelatonin and replace w PRN Benadryl. 07/23: Increase Seroquel to 600mg po qhs. Per his request, change Flexeril 10mg from TID PRN to TID.Will avoid Requip for RLS as it could worsen his DC sxs. Instead, will increase Neurontin to 900mg po TID. Spiritual care consult ordered. 07/24: Advance Seroquel to 700mg po qhs. Add Trazodone 50mg po qhs + 50mg po qhs PRN. Changed Benadryl to PRN itching only as this could worsen RLS, if that is truly what he has. Will discuss the possibility of akathisia (vs RLS) tomorrow. 07/25: Increase Seroquel to his [employer] dose of 800mg po qhs. Add a 2nd Lidocaine patch. Maximize daily APAP dose by allowing a daily PRN dose to his TID scheduled APAP. Pain Management consult placed. Trial Cogentin 1mg po BID for possible akathisia. D/c PRN Benadryl as he has Trazodone available. D/c CIWA. 07/26: MONTEZ Burr, may consider non-cardioselective beta messi in place of Toprol (ie. Inderal) for better akathisia coverage if RLS symptoms do not improve with increased Gabapentin. 07/27: Desonide cream BID for dermatitis. 07/28: Scheduled Robaxin 750 mg hs per pt request. 07/29 -- : No change. 08/01: EKG 08/02 AM. Amitriptyline to 100 mg hs. 08/02-: No change 08/04: Consult Addiction medicine 08/05: Per addiction med Naltrexone 50 mg daily 08/06: No change 08/07: Recheck BMP in the AM 08/08: Labs reviewed. Creatinine elevated 1.24. Recheck BMP on 08/10. Discontinue Naltrexone and Motrin. 08/09: Resume APAP 1000mg po TID. 08/10: Add an additional Lidoderm for his neck. Increase Toprol XL to 50mg po qday. 08/11: No med changes. 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 08/13: No med changes. 08/14: D/c scheduled bedtime Zyprexa as it has not changed his sleep pattern. (Continue w PRN.) 08/15 -- : No med changes. sCr remains mildly elevated. Avoid nephrotoxins. 08/18: No changes Discharge appointments needed: PCP, Pain Medicine, Addiction Medicine (if pt is willing) Milieu Management: Admit to: Medicine (IPF) >> NE4 Legal: >> >> SOC Acuity level: YELLOW Encouraged the patient to participate in unit activities. Level of Observation: No additional monitoring needed RE-CERTIFICATION & RISK ASSESSMENT The patient continues to need, on a daily basis, active inpatient psychiatric treatment for ongoingdiagnostic assessment and treatment of the following symptoms: AH, paranoia, substance withdrawal, and possible SI w possible SA prior to admission. The treatment can reasonably be expected to improve the patient's condition. Estimated length of stay is 30 days. Anticipated disposition: YASMEEN tx Risk Assessment: assault: Medium - paranoid Suicide Risk: Low Patient Strengths: willing to take medications Jaden Wetzel PA-C * Jaden Wetzel PA-C - 08/18/2023 8:55 AM CDT [facility] Psychiatry Progress Note PATIENT NAME: Nicanor Alvarado DATE OF SERVICE: 08/18/2023 ATTENDING PRACTITIONER: Jaden Wetzel PA-C HOSPITAL DAY # 29 CHIEF COMPLAINT subsequent inpatient psychiatric encounter INTERVAL HISTORY Nicanor Alvarado was seen in f/u by web content writer and APC Fellow on unit, where he is sitting watching TVbut agreed to interview. Says he is doing well, reports pain to be generally controlled as is but requesting change in Robaxin administration times. Asked team for update on inpatient treatment vs AAand going home with mother; affirmed that, given he would need to pay out of pocket for YASMEEN tx, this likely would not be an option. Denies concerns/side effects with medications, feels they are working/have struck a balance that allows for sufficient sleep. Reiterates he will not be drinking after discharge and this is not an option, uses organ damage as motivating factor as he would not be prescribed many medications for pain should he suffer further damage. No other questions/concerns at this time, agreed to terminate interview. REVIEW OF SYSTEMS Constitutional: did not endorse physical health concerns aside from as discussed above + chronic back / neck pain Psychiatric: did not endorse thoughts of self harm, SI, HI, paranoia, AH, and/or VH Medication side effects: none endorsed aside from dry mouth CHART REVIEW & MULTIDISCIPLINARY TEAM MEETING Met with the multidisciplinary treatment team and discussed care and treatment planning. RN Report: Subjective: I am doing great, the pain I have is 5 and 6. Objective: As usual, pt spent most of the evening in the day room socializing with peers and watching TV. Affect was bright, pt was approachable and controlled behaviorally. Went to the activity roomwith peers. Stated that his mind is stable, pain is 6/10 at his lower back and 5/10 at his neck. Medication is helpful, he stated. Pt denied all psych concerns. SW Report: reviewed and discussed Group attendance and participation: 2/3 OT PRN medications: reviewed MAR OBJECTIVE Hours of Sleep: Patient Vitals for the past 72 hrs: Sleep Hours 08/18/23 0630 8 HOURS 08/17/23 2235 1.3 HOURS 08/17/23 1507 0.3 HOURS 08/17/23 0703 8.3 HOURS 08/16/23 2231 11 HOURS 08/16/23 1440 0.5 HOURS 08/16/23 0621 6.3 HOURS 08/15/23 2226 1.5 HOURS 08/15/23 1430 0.3 HOURS LABS: No results found for this or any previous visit (from the past 24 hour(s)). Current Facility-Administered Medications Medication Dose Route Frequency acetaminophen (TYLENOL) tablet 1,000 mg 1,000 mg Oral DAILY PRN acetaminophen (TYLENOL) tablet 1,000 mg 1,000 mg Oral TID amitriptyline (ELAVIL) tablet 100 mg 100 mg Oral At Bedtime amLODIPine (NORVASC) tablet 5 mg 5 mg Oral Daily aspirin chewable tablet 81 mg 81 mg Oral Daily atorvastatin (LIPITOR) tablet 20 mg 20 mg Oral Evening senna (SENOKOT) tablet 2 Tablet 2 Tablet Oral BID PRN And polyethylene glycol (MIRALAX) oral powder 17 g 17 g Oral DAILY PRN And bisacodyl (DULCOLAX) rectal suppository 10 mg 10 mg Rectal DAILY PRN calcium carbonate (TUMS) chewable tablet 1,000 mg 1,000 mg Oral Q4H PRN desonide (DESOWEN) 0.05 % cream Topical BID diclofenac (VOLTAREN) gel 2 g 2 g Topical QID PRN diphenhydrAMINE (BENADRYL) capsule 50 mg 50 mg Oral At Bedtime diphenhydrAMINE (BENADRYL) capsule 50 mg 50 mg Oral DAILY PRN folic acid tablet 1 mg 1 mg Oral Daily gabapentin (NEURONTIN) capsule 1,200 mg 1,200 mg Oral TID lidocaine (ASPERCREAM) 4 % patch 1 Patch 1 Patch Transdermal Daily lidocaine (ASPERCREAM) 4 % patch 2 Patch 2 Patch Transdermal Daily lidocaine (XYLOCAINE) 5 % ointment Topical TID PRN methocarbamol (ROBAXIN) tablet 750 mg 750 mg Oral TID PRN methocarbamol (ROBAXIN) tablet 750 mg 750 mg Oral At Bedtime metoprolol succinate (TOPROL XL) extended release tablet 50 mg 50 mg Oral Daily nicotine (COMMIT) lozenge 2 mg 2 mg Oral Q1H PRN Or nicotine (NICORETTE) gum 2 mg 2 mg Oral Q1H PRN OLANZapine (ZyPREXA ZYDIS) disintegrating tablet 10 mg 10 mg Oral BID PRN pantoprazole DR (PROTONIX) tablet 40 mg 40 mg Oral Daily at 6 am QUEtiapine (SEROquel) tablet 800 mg 800 mg Oral At Bedtime tamsulosin (FLOMAX) capsule 0.4 mg 0.4 mg Oral Daily after a meal thiamine (VITAMIN B-1) tablet 100 mg 100 mg Oral Daily Food intake: Amount of Diet Consumed (last 3 days) Date/Time Intake (%) 08/18/23 0800 100%;Breakfast 08/17/23 1722 100%;Dinner 08/17/23 1211 100%;Lunch 08/17/23 0800 100%;Breakfast 08/16/23 1200 100%;Lunch 08/16/23 0803 100%;Breakfast 08/15/23 1705 100%;Dinner 08/15/23 1200 100%;Lunch 08/15/23 0700 100%;Breakfast ALLERGY Allergies Allergen Reactions Valproic Acid Other, see comments Excessive sedation Naltrexone Other, see comments Pt told RN he did not like it so he stopped taking it. MENTAL STATUS EXAM Filed Vitals: 08/17/23 0807 08/17/23 1100 08/17/23 1600 08/18/23 0827 BP: (!) 148/97 (!) 136/90 (!) 146/94 (!) 142/85 Pulse: 80 83 Resp: 16 18 Temp: 98.1 ??F (36.7 ??C) 98.2 ??F (36.8 ??C) 97.5 ??F (36.4 ??C) TempSrc: Skin Skin Skin SpO2: 98% 98% Weight: Height: Appearance: alert, improved eye contact, wearing scrubs, adequate grooming, appears older than stated age. Lidocaine patches on both sides of neck. Behavior: engaged, less needy, less med seeking, sometimes externalizes blame, often threatens to resume contraindicated rx after d/c Motor: less restless Gait and Station: wide-based, steady Speech: normal in rate, normal in volume, less hyper-verbal / over-inclusive Language: intact Thought process: largely linear although rambling Thought content: did not endorse thoughts of self harm, SI, HI, AH, and/or VH; no overt paranoid / delusional content offered; focused on sleep and pain Associations: grossly intact Mood: pretty good Affect: less anxious, more neutral, can become intense when discussing pain Orientation: grossly oriented Attention: intact Insight: poor Judgment: poor CONSULTATION HOSPITAL MEDICINE, 07/24/23: Assessment / Recommendations Follow up on labs show creat 0.96, returned to normal range and resolved USAMA. K is 5.1 but sample hemolyzed. med consulted on 07/23/23 because of chronic back/neck/shoulder pain. To me, pt reports chronic low back, B/L hip, and shoulder pain. Frustrated that doctors will not prescribe him opioids, and that they recommend against diclofenac due to kidney issues. 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 Although from a kidney perspective it may be safe to use NSAIDs, danny for an acute/short term need,I still do not believe this is the best nursing home medication for this patient for pain control moreso because of his cardiac risks with longstanding HLD, HTN, age, gender. In several studies, NSAIDshave shown to further increase the risk for thrombotic CV events as well as bleeding events. He is on ASA and addition of NSAID will increase risk of GI bleeding, as well. No current red flag symptoms for neck/back/shoulder pain, actually appears more controlled than previously per patient's report/chart review. Plan: - gabapentin has been helpful - continue 600 mg TID - lidocaine patch lower back has been helpful - continue daily; also offer additional lidocaine patch for neck or shoulder pain if pt desires - tylenol 650 mg prn changed to 1000 mg TID scheduled - diclofenac gel ordered instead to use topically as less systemic absorption - Given patient's chronic difficult to control pain and his h/o of self medicating with meds he buys off internet, I do think it is important to find a pain regimen that will control pt's chronic pain in a meaningful way so that he is less likely to use the internet to buy pills that are not prescribed to him - given it is the weekend, pain team is not available, but would consider primary team consult them and/or send OP referral to pain clinic for patient at hospital discharge. Pain team was consulted during a previous admission in May 2023, but he was not interested in any options other than opioids at that time. He did not ask me about opioids during our visit, so I believe he may nowbe open to more options, perhaps even intraarticular injections for shoulder/hip/back pain. med will sign off. Please reach out with any questions/concerns. Orin Nelson PA-C PAIN MANAGEMENT, 07/25: TREATMENT RECOMMENDATIONS/PLAN: Increase gabapentin to 1200mg TID Elavil 50mg QHS for sleep and nerve pain Change flexeril to robaxin 750 mg QID PRN NSAIDS could be considered in the future. Overall high risk patient with severe substance use disorder Will add non-opioid adjuvants. I did talk to him about suboxone; since he doesn't have opioid use disorder, this would not be my first preference. However, I would avoid pure opioid agonists at this time. ASSESSMENT AND RECOMMENDATIONS DISCUSSED WITH: Kristin Rutledge PA-C Thank you for consulting the Inpatient Pain Management Service. Please contact me with any questions or concerns. Aaron Galicia M.D. Addiction Medicine 08/09/23: ASSESSMENT/PLAN: 1. Alcohol use disorder, severe: Recent DUI. Patient is agreeable to treatment. States that he is on a stay of commitment. Challenged him to throw himself into his recovery. Discussed strategies for sobriety. Discussed the benefit of recovery meetings. Currently tolerating naltrexone but states he does not want to continue it. We will continue at discharge. 2. Methamphetamine/benzodiazepine use disorder: Discussed benefits of recovery meetings. Discussed benefits of 90 days of sobriety. Agrees to follow-up in my clinic. Bossman Franco MD CAM Alvarado is a 57 y.o. male who has been admitted to station [facility] for AH, paranoia, substance withdrawal, and possible [...] his room over the weekend. Admitted to [facility]: 07/20: Restless on exam. Reported +AH and +paranoia (under investigation - which he is starting toquestion as the truth). Less disorganized as compared to when on Medicine. He said he was not really sure about the events [employer]. He drinks alcohol heavily, nearly 3L of [employer] rum per week. He has been prescribed Lexapro, but he is not consistent w taking it. Sometimes I need more, referring to self medicating. He used methamphetamine [employer]. He said he has +AH at his baseline, but while using methamphetamine, the +AH escalated and, it got bad. Someone could have . It all seemed so real. He said he began to think that he would be better off if he just used all of the methamph etamine, so he used some IV. His paranoia escalated and he began to feel like someone was going to come through his door, so I ate the rest of the bag b/c I thought I would need the rage and energy to fight them off. Guarded at times. Hesitantly, he denied having SI and he denied the [employer] event asa SA. 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 When initially in the ED, he reported +SI (also while on Medicine) and, when questioned about ingestion, he replied w not enough. Per chart review from the 05/2023 Medicine admission (admitted for erratic driving / legal blood draw, while in the ED he had a syncopal episode and required Medicine admission then transfer to [facility]): He reports that he had about 2 hospitalizations in the past month. One in [facility] (04/24/2022) for acute toxic encephalopathy, drug overdose (cannabinoids, methamphetamine), and alcohol withdrawal w/ delirium tremens which required large amount of benzo. He says he had another hospitalization in [place]. He reports that one of these hospitalizations led to ICU stay and he was told that his kidney were failing, but no detailed records of outside hospital stay are available on admission. 07/21: Restless, argumentative, anxious, irritable, and illogical. He is agreeable to YASMEEN tx, especially to access psychotherapy, knowing it will likely eventually be court ordered. However, he also stated that he has no intentions of quitting alcohol all together, but only cutting back, b/c of his chronic pain. Additionally, he is unwilling to stay in the hospital beyond his 72h hold, in order tofacilitate a door to door transfer to YASMEEN tx. He was educated on his risk of relapse and reminded of his recent hospitalizations, related to use / overdosing. Pt was reminded that he himself stated someone could have in relation to the events prior to this admission. He does not see his drinking as a problem, stating, I don't drive. Manager Convention noted that he recently missed a court date for aDUI charge and, last hospitalization here, he was brought here for a legal blood draw after being stopped for erratic driving. When asked about the pill bottles that were scattered around him, when found [employer], he could not give an explanation. Will file a petition for civil commitment. 07/22: Quite tense, irritable, and rude on approach. Said he wants to d/c directly to [facility] he suspects there must be a bench warrant issued for his arrest d/t missing a DUI court date a few weeks back. He slept better, but asked for PRN Benadryl instead of PRN Melatonin. Thought processwas linear. No overt paranoia. Reported +AH last edil. [facility] is supporting petition for commitment. 07/23: He is frustrated w not being able to access an opioid or Voltaren for his chronic pain. He has no insight into risk / benefit considerations. He is resistant to any treatment that takes more effort than popping a pill. He reluctantly agreed to a pain medicine consult. He was noted to be diaphoretic, but has not been scoring high enough on CIWA to warrant PRN BZD. He talked at length about his oldest son's by hanging and about how he has struggled in the aftermath and has failed to adequately support his second son over the years. His second son has attempted suicide numerous timesand is currently in YASMEEN tx. He added, I must before him. The pt talked about his hinduism bel iefs, about not believing in suicide, but having come to the conclusion that even someone who does not believe in suicide can get to the point of attempting suicide. He denied thoughts of self harm, SI, HI, and VH. He reported +AH and +tactile hallucinations >> hypnagogic-like. Affect was anxious, tense, and irritable. 07/24: No diaphoresis today. Using PRNs for sleep. Denied further AH, VH, or tactile hallucinations.(However, his report of hallucinations varies from person to person.) Agreeable to med trials for various concerns, but tends to want to immediately jump to large doses. Anxious, intense at times, and restless. Thought process is largely linear. Denied SI / HI. He mentioned this hospitalization as the 4th time he's been in the ICU in as many months. 07/25: More elevated, animated, intense, and irritable. Continues restless. Med seeking - more of (to include opioids, BZD, and now stimulants, but also other more benign meds) - and wanting to go straight to high doses. He is a very inconsistent historian w details changing from day to day, person to person. Memory impairment is noted. He noted that he did not trash his kidneys as badly prior to this admission as compared to his other 3 recent admissions. He minimized the significance of his past renal injury and dismissed the warnings he has received by healthcare professionals re the risks to his vital organs. He called them over-dramatic. Denied AH / SI. +Paranoia re demons? Hyper-verbal. 07/26: Continued fixation on medications, feels he is in need of something additional for both pain and sleep -- pt offers diclofenac and Xanax as effective interventions, but understanding when web content writer offered renal concerns with diclofenac and habit-forming tendencies with Xanax. Pt hopeful for Benadryl for sleep which was agreed upon. Discussed Gabapentin additionally as options for both pain, sleep and RLS. 07/27: Less intense, irritable than yesterday and reporting sufficient sleep for the first time in years. Generally fixated on pain, medication options in case things fail down the road during current hospitalization. Apart from this, pt occasionally offers comments about how Xanax and opiate medications would simplify my long med list, but redirectable. 07/28: Largely unchanged, though briefly frustrated with not having Robaxin scheduled. Will do so moving forward per his request. Feels ready for CD referrals, aware that final commitment hearing is not until next week. 07/29: Planning out possible medication changes on a daily basis, frequently asks what next step is if certain medications do not work for him long-term, additionally routes interview back to discussion of pain/diclofenac several times throughout interaction. Very focused on medication regimen schedule. 07/30: Continued fixation on possible medication options moving forward, today mostly surrounding safety profile of medications with alcohol use. Additionally reported voices over the last couple of days, previously withheld from treatment team as he thought this would result in Seroquel being takenaway. 07/31: Unchanged; required. Robaxin last night for sleep, had difficulty sleeping through the night for 1st time in several days. Agreed to keep medications as are for now, revisit sleep augmentation if issues persist. Otherwise, no changes. 08/01: Persistent request to have suicidal ideation/status clarified by current team, fearful of having this label carried over into time at treatment. Otherwise, reported worse sleep for the past twodays and would appreciate increase in amitriptyline which web content writer agreed to. 08/02: Pt calm, cooperative and medication compliant. Denies psych symptoms. He reports being in agreement with need for CD treatment but argues 3 months is too long as he is the primary provider for his adult son who also struggles with alcohol use/abuse. Discussed benefits for in-patient and hopefully pt will be able to help his son through addiction but the pt argues other james. He believes hisproblem is not meth rather alcohol and he can limit himself. Pt is argumentative and has no insighton dangerous behaviors poses increased risk. Reports adequate sleep since admission. 08/03: Stressed, anxious about court hearing tomorrow. Anticipates he will be committed but does notlike the language as it seems forceful rather then voluntary. Discussed CD tx options and support systems as he work to archived sobriety. Motivated to seek help so as to help his son. Report good sleep the past nights. Requested his records be doctored for suicide because he was never suicidal and does not want belongings taken away when he gets to treatment. 08/04: Mixed of emotions today. Pt had courts earlier today and is excited he was given a SOC as it gives him more options and means of helping his son as well. Pt continued to express committment to CD treatment. He hopes he and son can team up and do AA together. Reports adequate sleep at night. Denies psych symptoms. Re-consulted addiction medicine as the pt is more open to discussion/medication assisted treatment. 08/05: Improved mood. Pt is more open-minded to recommendations regarding treatment. He reports improve sleep on current regimen. He hoes that continues. Discussed sleep hygiene, recommended CBT-I forongoing insomnia. 08/06: Continue to have good sleep. Remains committed to CD tx and then AA but opposed to MAT. Pt wasseen by Addiction med and he was started on Naltrexone. Pt is refusing med stating he does not need it. He is minimizing his alcohol and stating he can self limit his alcohol usage. Shows limited insight into his addiction. Using Zyprexa PRN almost every night to resume sleep which has been effective. Will continue to evaluate the need for scheduled Zyprexa as pt denies psych symptoms. Pt was seen by spiritual care and that has helped improved his mood. 08/07: Pt is feeling sore but otherwise good. Reports adequate sleep despite some interruption during the night. Pt requesting diclofenac oral instead of the gel for chronic pain. Chart review showedconsult from pain med and med hold off on diclofenac due to concerns for kidney issues however creatinine (07/22 was 0.96) has normalized. Will reach out to pain management to see if it is appropriate to add diclofenac and d/c motrin due to significant chronic pain history. Pt case is challengingas he is determined to resolve to getting his meds from online sources. 08/08: Calm and cooperative. Refused Naltrxone so it was discontinued. Lab draw showed elevated creatinine levels of 1.24. Will plan to repeat lab on 08/10. Remains fixated on pain management. 08/09: Pt reported currently getting decent sleep. He perseverated on pain control and on getting either Ibu or Voltaren prescribed again. He has no insight into the risk of renal insult. He suggested being prescribed a little bit of an opioid to have on hand when things get really bad. Nothingoutside of a pill is doable after d/c. Pt lacks accountability for his past behaviors and use andthe resulting consequences. Referral to [place]. Speech is hyper- verbal / over-inclusive and somewhat pressured. He is less restless. No overt paranoia. 08/10: Good participation in OT groups. Overnight sleep was better than usual. (Nearly 8h documented.) He is hopeful for YASMEEN tx at [place]. Per his usual, seemingly in hopes of getting a prescription, he added a veiled threat to use NSAIDs and/or opioids on his own after d/c, feeling he has no other choice. No insight into his kidney health or addiction. I'd rather my kidneys fail than live inpain. 08/11: Less restless. Less med seeking. Reported very acceptable sleep and improved pain control. Denied further paranoia or AH (as reported during initial part of hospitalization). Eager for YASMEEN tx.He became emotional when speaking about his mother and son. Pt was able to verbalize his positive reasons (mostly family related) for staying sober. He looks forward to my kidneys healing so that he can resume Voltaren. 08/12: Good OT attendance. Pt reported last night's sleep to be pretty good, but as usual, he did wake and take PRNs (for sleep and pain). Despite acknowledging that his pain control is reasonable atpresent, he perseverates on what might happen once he returns home after treatment, becoming irritable and intense. He says topicals will not be suitable. He again made what seem like threats to go back to using Voltaren (and Xanax) even if it means taking 10 years off the top of my life. 08/13: Visible in the milieu. Adequate sleep, although he does wake and get PRNs, usually around ~2a.At length, we discussed his kidney health, avoiding nephrotoxins, and maintaining adequate hydration. He remains focused on restarting NSAIDs, sometimes Xanax, and especially Voltaren, noting, I have no choice! He poses different scenarios, wanting the recommendation that he wants to hear. 08/14: Engaged w peers last edil. Today, ?paranoid re staff playing me over the shaver. He offered that scheduled Zyprexa at bedtime seems unnecessary as it has not changed his sleep pattern. We agreeto d/c and continue PRN. Continues hopeful of resuming Voltaren at some point. He believes the amount of bubbles in his urine indicates the level of renal function. 08/15: Verbalized satisfaction w his sleep and pain control. However, he feels he has no choice but to resume NSAIDs / Voltaren at some point. In his opinion, the benefit of improved pain outweighs the risk of CKD / dialysis / shortened life span. We discussed his problematic [employer] insurance and options for YASMEEN tx after d/c. He has been social and encouraging to peers. He is improved. 08/16: Similar concerns expressed surrounding pain, coverage for YASMEEN tx. Will likely be looking at discharge to family with AA attendance expected given inability to pay for treatment. Further, needs f/u with pain medicine established. 08/17: Largely unchanged; pain patches remain on bilateral sides of neck. No concerns apart from wishing Robaxin be scheduled, worries that this will not be offered at discharge. Discussed that medications are prescribed typically until f/u care outpatient. DIAGNOSES & PLAN Principal Psychiatric / Substance Use Diagnoses: - encephalopathy s/p ingestion: improved - bipolar disorder w psychosis vs SCAD by hx - r/o substance induced psychosis - alcohol use disorder, severe - methamphetamine use disorder, severe - BZD use disorder, severe - alcohol / BZD withdrawal Medical Concerns to be addressed: - USAMA: sCr again elevated after recent NSAID use - ?element of CKD? - mild rhabdomyolysis: improved - chronic back pain: see Medicine / Pain consult - HTN: norvasc, increased toprol xl - GERD: restarted PPI - HLD: restarted statin - LUTS: flomax - Patient with moderate malnutrition in the context of social/environmental circumstances during hospital stay and remains with no acute or chronic nutrition problems at this time. Patient requiring additional resources due to degree of malnutrition during hospital stay. Dietitian following with the following nutrition therapy plan: 1.) Ok to continue boost TID 2.) RDN to sign off, please consult as needed Medication Ordered/Consults/Labs/Tests Ordered: 07/18: Delirium precautions ordered. Seroquel ordered 100 mg QHS and 50 mg q4PRN. Zyprexa 5 PO mg vs10 mg IV - TID PRN if needed. UDS ordered. Will order high dosed Thiamine. Will order addiction consult. Gabapentin 300 mg TID ordered for withdrawal symptoms. 07/19: Increase quetiapine to 100mg TID. [employer] dose was 800mg qHS. UDS+ for amphetamines. 07/20: Will give Seroquel 200mg at bedtime this edil then combine doses / change dose to 400mg po qhs. Will titrate to [employer] dose of 800mg po qhs as tolerated / indicated. Hold Lexapro for now. He has not been consistently taking it. Increase Neurontin to 600mg po TID. Offer Zyprexa 10mg po BID PRN. Continue CIWA protocol w PRN Valium and PRN Clonidine. 07/21: Lidocaine patch daily. Medicine consult if [facility] is issued. 07/22: Medicine consult for chronic back pain management. Increase Seroquel to 500mg po qhs. D/c PRNMelatonin and replace w PRN Benadryl. 07/23: Increase Seroquel to 600mg po qhs. Per his request, change Flexeril 10mg from TID PRN to TID.Will avoid Requip for RLS as it could worsen his DC sxs. Instead, will increase Neurontin to 900mg po TID. Spiritual care consult ordered. 07/24: Advance Seroquel to 700mg po qhs. Add Trazodone 50mg po qhs + 50mg po qhs PRN. Changed Benadryl to PRN itching only as this could worsen RLS, if that is truly what he has. Will discuss the possibility of akathisia (vs RLS) tomorrow. 07/25: Increase Seroquel to his [employer] dose of 800mg po qhs. Add a 2nd Lidocaine patch. Maximize daily APAP dose by allowing a daily PRN dose to his TID scheduled APAP. Pain Management consult placed. Trial Cogentin 1mg po BID for possible akathisia. D/c PRN Benadryl as he has Trazodone available. D/c CIWA. 07/26: DC Aminah, may consider non-cardioselective beta messi in place of Toprol (ie. Inderal) for better akathisia coverage if RLS symptoms do not improve with increased Gabapentin. 07/27: Desonide cream BID for dermatitis. 07/28: Scheduled Robaxin 750 mg hs per pt request. 07/29 -- : No change. 08/01: EKG 08/02 AM. Amitriptyline to 100 mg hs. 08/02-: No change 08/04: Consult Addiction medicine 08/05: Per addiction med Naltrexone 50 mg daily 08/06: No change 08/07: Recheck BMP in the AM 08/08: Labs reviewed. Creatinine elevated 1.24. Recheck BMP on 08/10. Discontinue Naltrexone and Motrin. 08/09: Resume APAP 1000mg po TID. 08/10: Add an additional Lidoderm for his neck. Increase Toprol XL to 50mg po qday. 08/11: No med changes. 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 08/13: No med changes. 08/14: D/c scheduled bedtime Zyprexa as it has not changed his sleep pattern. (Continue w PRN.) 08/15 -- : No med changes. sCr remains mildly elevated. Avoid nephrotoxins. Discharge appointments needed: PCP, Pain Medicine, Addiction Medicine (if pt is willing) Milieu Management: Admit to: Medicine (IPF) >> NE4 Legal: >> >> SOC Acuity level: YELLOW Encouraged the patient to participate in unit activities. Level of Observation: No additional monitoring needed RE-CERTIFICATION & RISK ASSESSMENT The patient continues to need, on a daily basis, active inpatient psychiatric treatment for ongoingdiagnostic assessment and treatment of the following symptoms: AH, paranoia, substance withdrawal, and possible SI w possible SA prior to admission. The treatment can reasonably be expected to improve the patient's condition. Estimated length of stay is 30 days. Anticipated disposition: YASMEEN tx Risk Assessment: assault: Medium - paranoid Suicide Risk: Low Patient Strengths: willing to take medications Jaden Wetzel PA-C * Jaden Wetzel PA-C - 08/17/2023 9:47 AM CDT [facility] Psychiatry Progress Note PATIENT NAME: Nicanor Alvarado DATE OF SERVICE: 08/17/2023 ATTENDING PRACTITIONER: Jaden Wetzel PA-C HOSPITAL DAY # 28 CHIEF COMPLAINT subsequent inpatient psychiatric encounter INTERVAL HISTORY Nicanor Alvarado was seen in f/u by web content writer on unit, where he is sitting watching TV but agreed to interview. Notes he is doing well, sleep has been sufficient (wakes most nights but quickly able to fall back asleep). Discussed plans regarding disposition, pt hopeful for outpatient treatment or attending AA meetings with support of living at home/having outpatient psychologist appointments arranged. Found out he would need to pay for inpatient treatment out of pocket and this is not a possibility for him. Discussed pain as he has in previous interactions with prior team -- voiced continued intent to utilize Voltaren if something better isn't available, followed by noting this to be a quality of life concern and he would prefer to live in comfort even if this shortened his life expectancy. Hopeful for discharge around the end of the week, aware that SW needs to touch base with mother prior to establishing DC timeline. REVIEW OF SYSTEMS Constitutional: did not endorse physical health concerns aside from as discussed above + chronic back / neck pain Psychiatric: did not endorse thoughts of self harm, SI, HI, paranoia, AH, and/or VH Medication side effects: none endorsed aside from dry mouth CHART REVIEW & MULTIDISCIPLINARY TEAM MEETING Met with the multidisciplinary treatment team and discussed care and treatment planning. RN Report: Subjective: Other than the pain I have, I am doing well. Objective: Patient was visible on the unit watching TV with peers, bright affect, social, appreciative and behaviorally controlled. Denied all psych concerns, states that he is fine mentally, but pain control continues to be an issue. Received scheduled medications without concerns. Denied SI/HI/AVH. SW Report: reviewed and discussed Group attendance and participation: 2/ OT PRN medications: reviewed MAR OBJECTIVE Hours of Sleep: Patient Vitals for the past 72 hrs: Sleep Hours 08/17/23 0703 8.3 HOURS 08/16/23 2231 11 HOURS 08/16/23 1440 0.5 HOURS 08/16/23 0621 6.3 HOURS 08/15/23 2226 1.5 HOURS 08/15/23 1430 0.3 HOURS 08/15/23 0619 7.3 HOURS 08/14/23 2221 1.3 HOURS 08/14/23 1500 0.5 HOURS LABS: No results found for this or any previous visit (from the past 24 hour(s)). Current Facility-Administered Medications Medication Dose Route Frequency acetaminophen (TYLENOL) tablet 1,000 mg 1,000 mg Oral DAILY PRN acetaminophen (TYLENOL) tablet 1,000 mg 1,000 mg Oral TID amitriptyline (ELAVIL) tablet 100 mg 100 mg Oral At Bedtime amLODIPine (NORVASC) tablet 5 mg 5 mg Oral Daily aspirin chewable tablet 81 mg 81 mg Oral Daily atorvastatin (LIPITOR) tablet 20 mg 20 mg Oral Evening senna (SENOKOT) tablet 2 Tablet 2 Tablet Oral BID PRN And polyethylene glycol (MIRALAX) oral powder 17 g 17 g Oral DAILY PRN And bisacodyl (DULCOLAX) rectal suppository 10 mg 10 mg Rectal DAILY PRN calcium carbonate (TUMS) chewable tablet 1,000 mg 1,000 mg Oral Q4H PRN desonide (DESOWEN) 0.05 % cream Topical BID diclofenac (VOLTAREN) gel 2 g 2 g Topical QID PRN diphenhydrAMINE (BENADRYL) capsule 50 mg 50 mg Oral At Bedtime diphenhydrAMINE (BENADRYL) capsule 50 mg 50 mg Oral DAILY PRN folic acid tablet 1 mg 1 mg Oral Daily gabapentin (NEURONTIN) capsule 1,200 mg 1,200 mg Oral TID lidocaine (ASPERCREAM) 4 % patch 1 Patch 1 Patch Transdermal Daily lidocaine (ASPERCREAM) 4 % patch 2 Patch 2 Patch Transdermal Daily lidocaine (XYLOCAINE) 5 % ointment Topical TID PRN methocarbamol (ROBAXIN) tablet 750 mg 750 mg Oral TID PRN methocarbamol (ROBAXIN) tablet 750 mg 750 mg Oral At Bedtime metoprolol succinate (TOPROL XL) extended release tablet 50 mg 50 mg Oral Daily nicotine (COMMIT) lozenge 2 mg 2 mg Oral Q1H PRN Or nicotine (NICORETTE) gum 2 mg 2 mg Oral Q1H PRN OLANZapine (ZyPREXA ZYDIS) disintegrating tablet 10 mg 10 mg Oral BID PRN pantoprazole DR (PROTONIX) tablet 40 mg 40 mg Oral Daily at 6 am QUEtiapine (SEROquel) tablet 800 mg 800 mg Oral At Bedtime tamsulosin (FLOMAX) capsule 0.4 mg 0.4 mg Oral Daily after a meal thiamine (VITAMIN B-1) tablet 100 mg 100 mg Oral Daily Food intake: Amount of Diet Consumed (last 3 days) Date/Time Intake (%) 08/17/23 0800 100%;Breakfast 08/16/23 1200 100%;Lunch 08/16/23 0803 100%;Breakfast 08/15/23 1705 100%;Dinner 08/15/23 1200 100%;Lunch 08/15/23 0700 100%;Breakfast 08/14/23 1711 100%;Dinner 08/14/23 1200 100%;Lunch 08/14/23 0822 100%;Breakfast ALLERGY Allergies Allergen Reactions Valproic Acid Other, see comments Excessive sedation Naltrexone Other, see comments Pt told RN he did not like it so he stopped taking it. MENTAL STATUS EXAM Filed Vitals: 08/15/23 1551 08/16/23 0800 08/16/23 1618 08/17/23 0807 BP: 131/82 (!) 132/92 137/88 (!) 148/97 Pulse: 81 85 Resp: 16 16 16 Temp: 98 ??F (36.7 ??C) 98.6 ??F (37 ??C) 98 ??F (36.7 ??C) 98.1 ??F (36.7 ??C) TempSrc: Temporal Artery Skin Oral Skin SpO2: 96% 100% 97% Weight: Height: Appearance: alert, improved eye contact, wearing scrubs, adequate grooming, appears older than stated age Behavior: engaged, less needy, less med seeking, sometimes externalizes blame, often threatens to resume contraindicated rx after d/c Motor: less restless Gait and Station: wide-based, steady Speech: normal in rate, normal in volume, less hyper-verbal / over-inclusive Language: intact Thought process: largely linear although rambling Thought content: did not endorse thoughts of self harm, SI, HI, AH, and/or VH; no overt paranoid / delusional content offered; focused on sleep and pain Associations: grossly intact Mood: I'm fine Affect: less anxious, more neutral, can become intense when discussing pain Orientation: grossly oriented Attention: intact Insight: poor Judgment: poor CONSULTATION [facility], 07/24/23: Assessment / Recommendations Follow up on labs show creat 0.96, returned to normal range and resolved USAMA. K is 5.1 but sample hemolyzed. med consulted on 07/23/23 because of chronic back/neck/shoulder pain. To me, pt reports chronic low back, B/L hip, and shoulder pain. Frustrated that doctors will not prescribe him opioids, and that they recommend against diclofenac due to kidney issues. 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 In several studies, NSAIDshave shown to further increase the risk for thrombotic CV events as well as bleeding events. He is on ASA and addition of NSAID will increase risk of GI bleeding, as well. No current red flag symptoms for neck/back/shoulder pain, actually appears more controlled than previously per patient's report/chart review. Plan: - gabapentin has been helpful - continue 600 mg TID - lidocaine patch lower back has been helpful - continue daily; also offer additional lidocaine patch for neck or shoulder pain if pt desires - tylenol 650 mg prn changed to 1000 mg TID scheduled - diclofenac gel ordered instead to use topically as less systemic absorption - Given patient's chronic difficult to control pain and his h/o of self medicating with meds he buys off internet, I do think it is important to find a pain regimen that will control pt's chronic pain in a meaningful way so that he is less likely to use the internet to buy pills that are not prescribed to him - given it is the weekend, pain team is not available, but would consider primary team consult them and/or send OP referral to pain clinic for patient at hospital discharge. Pain team was consulted during a previous admission in May 2023, but he was not interested in any options other than opioids at that time. He did not ask me about opioids during our visit, so I believe he may nowbe open to more options, perhaps even intraarticular injections for shoulder/hip/back pain. med will sign off. Please reach out with any questions/concerns. Orin Nelson PA-C PAIN MANAGEMENT, 07/25: TREATMENT RECOMMENDATIONS/PLAN: Increase gabapentin to 1200mg TID Elavil 50mg QHS for sleep and nerve pain Change flexeril to robaxin 750 mg QID PRN NSAIDS could be considered in the future. Overall high risk patient with severe substance use disorder Will add non-opioid adjuvants. I did talk to him about suboxone; since he doesn't have opioid use disorder, this would not be my first preference. However, I would avoid pure opioid agonists at this time. ASSESSMENT AND RECOMMENDATIONS DISCUSSED WITH: Kristin Rutledge PA-C Thank you for consulting the Inpatient Pain Management Service. Please contact me with any questions or concerns. Aaron Galicia M.D. Addiction Medicine 08/09/23: ASSESSMENT/PLAN: 1. Alcohol use disorder, severe: Recent DUI. Patient is agreeable to treatment. States that he is on a stay of commitment. Challenged him to throw himself into his recovery. Discussed strategies for sobriety. Discussed the benefit of recovery meetings. Currently tolerating naltrexone but states he does not want to continue it. We will continue at discharge. 2. Methamphetamine/benzodiazepine use disorder: Discussed benefits of recovery meetings. Discussed benefits of 90 days of sobriety. Agrees to follow-up in my clinic. Bossman Franco MD CAM Alvarado is a 57 y.o. male who has been admitted to station [facility] for AH, paranoia, substance withdrawal, and possible [...] his room over the weekend. Admitted to NH4: 07/20: Restless on exam. Reported +AH and +paranoia (under investigation - which he is starting toquestion as the truth). Less disorganized as compared to when on Medicine. He said he was not really sure about the events [employer]. He drinks alcohol heavily, nearly 3L of [place] rum per week. He has been prescribed Lexapro, but he is not consistent w taking it. Sometimes I need more, referring to self medicating. He used methamphetamine [employer]. He said he has +AH at his baseline, but while using methamphetamine, the +AH escalated and, it got bad. Someone could have . It all seemed so real. He said he began to think that he would be better off if he just used all of the methamph etamine, so he used some IV. His paranoia escalated and he began to feel like someone was going to come through his door, so I ate the rest of the bag b/c I thought I would need the rage and energy to fight them off. Guarded at times. Hesitantly, he denied having SI and he denied the [employer] event asa SA. 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 When initially in the ED, he reported +SI (also while on Medicine) and, when questioned about ingestion, he replied w not enough. Per chart review from the 05/2023 Medicine admission (admitted for erratic driving / legal blood draw, while in the ED he had a syncopal episode and required Medicine admission then transfer to [facility]): He reports that he had about 2 hospitalizations in the past month. One in [facility] (04/24/2022) for acute toxic encephalopathy, drug overdose (cannabinoids, methamphetamine), and alcohol withdrawal w/ delirium tremens which required large amount of benzo. He says he had another hospitalization in [place]. He reports that one of these hospitalizations led to ICU stay and he was told that his kidney were failing, but no detailed records of outside hospital stay are available on admission. 07/21: Restless, argumentative, anxious, irritable, and illogical. He is agreeable to YASMEEN tx, especially to access psychotherapy, knowing it will likely eventually be court ordered. However, he also stated that he has no intentions of quitting alcohol all together, but only cutting back, b/c of his chronic pain. Additionally, he is unwilling to stay in the hospital beyond his 72h hold, in order tofacilitate a door to door transfer to YASMEEN tx. He was educated on his risk of relapse and reminded of his recent hospitalizations, related to use / overdosing. Pt was reminded that he himself stated someone could have in relation to the events prior to this admission. He does not see his drinking as a problem, stating, I don't drive. Manager Convention noted that he recently missed a court date for aDUI charge and, last hospitalization here, he was brought here for a legal blood draw after being stopped for erratic driving. When asked about the pill bottles that were scattered around him, when found [employer], he could not give an explanation. Will file a petition for civil commitment. 07/22: Quite tense, irritable, and rude on approach. Said he wants to d/c directly to [facility] he suspects there must be a bench warrant issued for his arrest d/t missing a DUI court date a few weeks back. He slept better, but asked for PRN Benadryl instead of PRN Melatonin. Thought processwas linear. No overt paranoia. Reported +AH last edil. [facility] is supporting petition for commitment. 07/23: He is frustrated w not being able to access an opioid or Voltaren for his chronic pain. He has no insight into risk / benefit considerations. He is resistant to any treatment that takes more effort than popping a pill. He reluctantly agreed to a pain medicine consult. He was noted to be diaphoretic, but has not been scoring high enough on CIWA to warrant PRN BZD. He talked at length about his oldest son's by hanging and about how he has struggled in the aftermath and has failed to adequately support his second son over the years. His second son has attempted suicide numerous timesand is currently in YASMEEN tx. He added, I must before him. The pt talked about his hinduism bel iefs, about not believing in suicide, but having come to the conclusion that even someone who does not believe in suicide can get to the point of attempting suicide. He denied thoughts of self harm, SI, HI, and VH. He reported +AH and +tactile hallucinations >> hypnagogic-like. Affect was anxious, tense, and irritable. 07/24: No diaphoresis today. Using PRNs for sleep. Denied further AH, VH, or tactile hallucinations.(However, his report of hallucinations varies from person to person.) Agreeable to med trials for various concerns, but tends to want to immediately jump to large doses. Anxious, intense at times, and restless. Thought process is largely linear. Denied SI / HI. He mentioned this hospitalization as the 4th time he's been in the ICU in as many months. 07/25: More elevated, animated, intense, and irritable. Continues restless. Med seeking - more of (to include opioids, BZD, and now stimulants, but also other more benign meds) - and wanting to go straight to high doses. He is a very inconsistent historian w details changing from day to day, person to person. Memory impairment is noted. He noted that he did not trash his kidneys as badly prior to this admission as compared to his other 3 recent admissions. He minimized the significance of his past renal injury and dismissed the warnings he has received by healthcare professionals re the risks to his vital organs. He called them over-dramatic. Denied AH / SI. +Paranoia re demons? Hyper-verbal. 07/26: Continued fixation on medications, feels he is in need of something additional for both pain and sleep -- pt offers diclofenac and Xanax as effective interventions, but understanding when web content writer offered renal concerns with diclofenac and habit-forming tendencies with Xanax. Pt hopeful for Benadryl for sleep which was agreed upon. Discussed Gabapentin additionally as options for both pain, sleep and RLS. 07/27: Less intense, irritable than yesterday and reporting sufficient sleep for the first time in years. Generally fixated on pain, medication options in case things fail down the road during current hospitalization. Apart from this, pt occasionally offers comments about how Xanax and opiate medications would simplify my long med list, but redirectable. 07/28: Largely unchanged, though briefly frustrated with not having Robaxin scheduled. Will do so moving forward per his request. Feels ready for CD referrals, aware that final commitment hearing is not until next week. 07/29: Planning out possible medication changes on a daily basis, frequently asks what next step is if certain medications do not work for him long-term, additionally routes interview back to discussion of pain/diclofenac several times throughout interaction. Very focused on medication regimen schedule. 07/30: Continued fixation on possible medication options moving forward, today mostly surrounding safety profile of medications with alcohol use. Additionally reported voices over the last couple of days, previously withheld from treatment team as he thought this would result in Seroquel being takenaway. 07/31: Unchanged; required. Robaxin last night for sleep, had difficulty sleeping through the night for 1st time in several days. Agreed to keep medications as are for now, revisit sleep augmentation if issues persist. Otherwise, no changes. 08/01: Persistent request to have suicidal ideation/status clarified by current team, fearful of having this label carried over into time at treatment. Otherwise, reported worse sleep for the past twodays and would appreciate increase in amitriptyline which web content writer agreed to. 08/02: Pt calm, cooperative and medication compliant. Denies psych symptoms. He reports being in agreement with need for CD treatment but argues 3 months is too long as he is the primary provider for his adult son who also struggles with alcohol use/abuse. Discussed benefits for in-patient and hopefully pt will be able to help his son through addiction but the pt argues other james. He believes hisproblem is not meth rather alcohol and he can limit himself. Pt is argumentative and has no insighton dangerous behaviors poses increased risk. Reports adequate sleep since admission. 08/03: Stressed, anxious about court hearing tomorrow. Anticipates he will be committed but does notlike the language as it seems forceful rather then voluntary. Discussed CD tx options and support systems as he work to archived sobriety. Motivated to seek help so as to help his son. Report good sleep the past nights. Requested his records be doctored for suicide because he was never suicidal and does not want belongings taken away when he gets to treatment. 08/04: Mixed of emotions today. Pt had courts earlier today and is excited he was given a SOC as it gives him more options and means of helping his son as well. Pt continued to express committment to CD treatment. He hopes he and son can team up and do AA together. Reports adequate sleep at night. Denies psych symptoms. Re-consulted addiction medicine as the pt is more open to discussion/medication assisted treatment. 08/05: Improved mood. Pt is more open-minded to recommendations regarding treatment. He reports improve sleep on current regimen. He hoes that continues. Discussed sleep hygiene, recommended CBT-I forongoing insomnia. 08/06: Continue to have good sleep. Remains committed to CD tx and then AA but opposed to MAT. Pt wasseen by Addiction med and he was started on Naltrexone. Pt is refusing med stating he does not need it. He is minimizing his alcohol and stating he can self limit his alcohol usage. Shows limited insight into his addiction. Using Zyprexa PRN almost every night to resume sleep which has been effective. Will continue to evaluate the need for scheduled Zyprexa as pt denies psych symptoms. Pt was seen by spiritual care and that has helped improved his mood. 08/07: Pt is feeling sore but otherwise good. Reports adequate sleep despite some interruption during the night. Pt requesting diclofenac oral instead of the gel for chronic pain. Chart review showedconsult from pain med and med hold off on diclofenac due to concerns for kidney issues however creatinine (07/22 was 0.96) has normalized. Will reach out to pain management to see if it is appropriate to add diclofenac and d/c motrin due to significant chronic pain history. Pt case is challengingas he is determined to resolve to getting his meds from online sources. 08/08: Calm and cooperative. Refused Naltrxone so it was discontinued. Lab draw showed elevated creatinine levels of 1.24. Will plan to repeat lab on 08/10. Remains fixated on pain management. 08/09: Pt reported currently getting decent sleep. He perseverated on pain control and on getting either Ibu or Voltaren prescribed again. He has no insight into the risk of renal insult. He suggested being prescribed a little bit of an opioid to have on hand when things get really bad. Nothingoutside of a pill is doable after d/c. Pt lacks accountability for his past behaviors and use andthe resulting consequences. Referral to [place]. Speech is hyper- verbal / over-inclusive and somewhat pressured. He is less restless. No overt paranoia. 08/10: Good participation in OT groups. Overnight sleep was better than usual. (Nearly 8h documented.) He is hopeful for YASMEEN tx at [place]. Per his usual, seemingly in hopes of getting a prescription, he added a veiled threat to use NSAIDs and/or opioids on his own after d/c, feeling he has no other choice. No insight into his kidney health or addiction. I'd rather my kidneys fail than live inpain. 08/11: Less restless. Less med seeking. Reported very acceptable sleep and improved pain control. Denied further paranoia or AH (as reported during initial part of hospitalization). Eager for YASMEEN tx.He became emotional when speaking about his mother and son. Pt was able to verbalize his positive reasons (mostly family related) for staying sober. He looks forward to my kidneys healing so that he can resume Voltaren. 08/12: Good OT attendance. Pt reported last night's sleep to be pretty good, but as usual, he did wake and take PRNs (for sleep and pain). Despite acknowledging that his pain control is reasonable atpresent, he perseverates on what might happen once he returns home after treatment, becoming irritable and intense. He says topicals will not be suitable. He again made what seem like threats to go back to using Voltaren (and Xanax) even if it means taking 10 years off the top of my life. 08/13: Visible in the milieu. Adequate sleep, although he does wake and get PRNs, usually around ~2a.At length, we discussed his kidney health, avoiding nephrotoxins, and maintaining adequate hydration. He remains focused on restarting NSAIDs, sometimes Xanax, and especially Voltaren, noting, I have no choice! He poses different scenarios, wanting the recommendation that he wants to hear. 08/14: Engaged w peers last edil. Today, ?paranoid re staff playing me over the shaver. He offered that scheduled Zyprexa at bedtime seems unnecessary as it has not changed his sleep pattern. We agreeto d/c and continue PRN. Continues hopeful of resuming Voltaren at some point. He believes the amount of bubbles in his urine indicates the level of renal function. 08/15: Verbalized satisfaction w his sleep and pain control. However, he feels he has no choice but to resume NSAIDs / Voltaren at some point. In his opinion, the benefit of improved pain outweighs the risk of CKD / dialysis / shortened life span. We discussed his problematic [employer] insurance and options for YASMEEN tx after d/c. He has been social and encouraging to peers. He is improved. 08/16: Similar concerns expressed surrounding pain, coverage for YASMEEN tx. Will likely be looking at discharge to family with AA attendance expected given inability to pay for treatment. Further, needs f/u with pain medicine established. DIAGNOSES & PLAN Principal Psychiatric / Substance Use Diagnoses: - encephalopathy s/p ingestion: improved - bipolar disorder w psychosis vs SCAD by hx - r/o substance induced psychosis - alcohol use disorder, severe - methamphetamine use disorder, severe - BZD use disorder, severe - alcohol / BZD withdrawal Medical Concerns to be addressed: - USAMA: sCr again elevated after recent NSAID use - ?element of CKD? - mild rhabdomyolysis: improved - chronic back pain: see Medicine / Pain consult - HTN: norvasc, increased toprol xl - GERD: restarted PPI - HLD: restarted statin - LUTS: flomax - Patient with moderate malnutrition in the context of social/environmental circumstances during hospital stay and remains with no acute or chronic nutrition problems at this time. Patient requiring additional resources due to degree of malnutrition during hospital stay. Dietitian following with the following nutrition therapy plan: 1.) Ok to continue boost TID 2.) RDN to sign off, please consult as needed Medication Ordered/Consults/Labs/Tests Ordered: 07/18: Delirium precautions ordered. Seroquel ordered 100 mg QHS and 50 mg q4PRN. Zyprexa 5 PO mg vs10 mg IV - TID PRN if needed. UDS ordered. Will order high dosed Thiamine. Will order addiction consult. Gabapentin 300 mg TID ordered for withdrawal symptoms. 07/19: Increase quetiapine to 100mg TID. [employer] dose was 800mg qHS. UDS+ for amphetamines. 07/20: Will give Seroquel 200mg at bedtime this edil then combine doses / change dose to 400mg po qhs. Will titrate to [employer] dose of 800mg po qhs as tolerated / indicated. Hold Lexapro for now. He has not been consistently taking it. Increase Neurontin to 600mg po TID. Offer Zyprexa 10mg po BID PRN. Continue CIWA protocol w PRN Valium and PRN Clonidine. 07/21: Lidocaine patch daily. Medicine consult if [facility] is issued. 07/22: Medicine consult for chronic back pain management. Increase Seroquel to 500mg po qhs. D/c PRNMelatonin and replace w PRN Benadryl. 07/23: Increase Seroquel to 600mg po qhs. Per his request, change Flexeril 10mg from TID PRN to TID.Will avoid Requip for RLS as it could worsen his DC sxs. Instead, will increase Neurontin to 900mg po TID. Spiritual care consult ordered. 07/24: Advance Seroquel to 700mg po qhs. Add Trazodone 50mg po qhs + 50mg po qhs PRN. Changed Benadryl to PRN itching only as this could worsen RLS, if that is truly what he has. Will discuss the possibility of akathisia (vs RLS) tomorrow. 07/25: Increase Seroquel to his [employer] dose of 800mg po qhs. Add a 2nd Lidocaine patch. Maximize daily APAP dose by allowing a daily PRN dose to his TID scheduled APAP. Pain Management consult placed. Trial Cogentin 1mg po BID for possible akathisia. D/c PRN Benadryl as he has Trazodone available. D/c CIWA. 07/26: MONTEZ Burr, may consider non-cardioselective beta messi in place of Toprol (ie. Inderal) for better akathisia coverage if RLS symptoms do not improve with increased Gabapentin. 07/27: Desonide cream BID for dermatitis. 07/28: Scheduled Robaxin 750 mg hs per pt request. 07/29 -- : No change. 08/01: EKG 08/02 AM. Amitriptyline to 100 mg hs. 08/02-: No change 08/04: Consult Addiction medicine 08/05: Per addiction med Naltrexone 50 mg daily 08/06: No change 08/07: Recheck BMP in the AM 08/08: Labs reviewed. Creatinine elevated 1.24. Recheck BMP on 08/10. Discontinue Naltrexone and Motrin. 08/09: Resume APAP 1000mg po TID. 08/10: Add an additional Lidoderm for his neck. Increase Toprol XL to 50mg po qday. 08/11: No med changes. 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 08/13: No med changes. 08/14: D/c scheduled bedtime Zyprexa as it has not changed his sleep pattern. (Continue w PRN.) 08/15 -- : No med changes. sCr remains mildly elevated. Avoid nephrotoxins. Discharge appointments needed: PCP, Pain Medicine, Addiction Medicine (if pt is willing) Milieu Management: Admit to: Medicine (IPF) >> NE4 Legal: >> >> SOC Acuity level: YELLOW Encouraged the patient to participate in unit activities. Level of Observation: No additional monitoring needed RE-CERTIFICATION & RISK ASSESSMENT The patient continues to need, on a daily basis, active inpatient psychiatric treatment for ongoingdiagnostic assessment and treatment of the following symptoms: AH, paranoia, substance withdrawal, and possible SI w possible SA prior to admission. The treatment can reasonably be expected to improve the patient's condition. Estimated length of stay is 30 days. Anticipated disposition: YASMEEN tx Risk Assessment: assault: Medium - paranoid Suicide Risk: Low Patient Strengths: willing to take medications Jaden Wetzel PA-C * Kristin Rutledge PA-C - 08/16/2023 2:45 PM CDT [facility] Psychiatry Progress Note PATIENT NAME: Nicanor Alvarado DATE OF SERVICE: 08/16/2023 ATTENDING PRACTITIONER: Kristin Rutledge PA-C HOSPITAL DAY # 27 CHIEF COMPLAINT subsequent inpatient psychiatric encounter INTERVAL HISTORY Ncianor Alvarado was seen in f/u by web content writer and MD. Today, he verbalized satisfaction w his sleep and pain control. He hopes that he will be able to get PRN Zyprexa (for sleep) and PRN Robaxin upon d/c. He continues to plan for resuming NSAIDs / Voltaren at some point after d/c. He feels he has nochoice. In his opinion, the benefit of improved pain outweighs the risk of CKD / dialysis / shortened life span. We reviewed f/u recommendations for after d/c. We discussed his problematic [employer] insurance and options for YASMEEN tx after d/c. He rambled about the success he had w his mentoring skillsin changing a peer's attitude. (In reality, the peer's dispo plan drastically changed.) He c/o dry m outh but refused OralBalance. He will try gum and ice chips. REVIEW OF SYSTEMS Constitutional: did not endorse physical health concerns aside from as discussed above + chronic back / neck pain Psychiatric: did not endorse thoughts of self harm, SI, HI, paranoia, AH, and/or VH Medication side effects: none endorsed aside from dry mouth CHART REVIEW & MULTIDISCIPLINARY TEAM MEETING Met with the multidisciplinary treatment team and discussed care and treatment planning. RN Report: Subjective: Can you help with my phone? I'll take some Aspercreme later for my neck. I'm goingto need to get my diclofenac (oral) back when I get home. It helps with the pain for 12 hours. Objective: Patient spent most of the shift out in the day room socializing with peers and watching TV. He was cooperative during interactions. He denied SI, HI, A/VH. He was allowed to pay a bill from his phone. He was cooperative with his medication. He received PRN topical diclofenac for pain. SW Report: reviewed and discussed Group attendance and participation: / OT PRN medications: reviewed MAR OBJECTIVE Hours of Sleep: Patient Vitals for the past 72 hrs: Sleep Hours 08/16/23 1440 0.5 HOURS 08/16/23 0621 6.3 HOURS 08/15/23 2226 1.5 HOURS 08/15/23 1430 0.3 HOURS 08/15/23 0619 7.3 HOURS 08/14/23 2221 1.3 HOURS 08/14/23 1500 0.5 HOURS 08/14/23 0629 6.3 HOURS 08/13/23 2243 1.3 HOURS LABS: No results found for this or any previous visit (from the past 24 hour(s)). Current Facility-Administered Medications Medication Dose Route Frequency acetaminophen (TYLENOL) tablet 1,000 mg 1,000 mg Oral DAILY PRN acetaminophen (TYLENOL) tablet 1,000 mg 1,000 mg Oral TID amitriptyline (ELAVIL) tablet 100 mg 100 mg Oral At Bedtime amLODIPine (NORVASC) tablet 5 mg 5 mg Oral Daily aspirin chewable tablet 81 mg 81 mg Oral Daily atorvastatin (LIPITOR) tablet 20 mg 20 mg Oral Evening senna (SENOKOT) tablet 2 Tablet 2 Tablet Oral BID PRN And polyethylene glycol (MIRALAX) oral powder 17 g 17 g Oral DAILY PRN And bisacodyl (DULCOLAX) rectal suppository 10 mg 10 mg Rectal DAILY PRN calcium carbonate (TUMS) chewable tablet 1,000 mg 1,000 mg Oral Q4H PRN desonide (DESOWEN) 0.05 % cream Topical BID diclofenac (VOLTAREN) gel 2 g 2 g Topical QID PRN diphenhydrAMINE (BENADRYL) capsule 50 mg 50 mg Oral At Bedtime diphenhydrAMINE (BENADRYL) capsule 50 mg 50 mg Oral DAILY PRN folic acid tablet 1 mg 1 mg Oral Daily gabapentin (NEURONTIN) capsule 1,200 mg 1,200 mg Oral TID lidocaine (ASPERCREAM) 4 % patch 1 Patch 1 Patch Transdermal Daily lidocaine (ASPERCREAM) 4 % patch 2 Patch 2 Patch Transdermal Daily lidocaine (XYLOCAINE) 5 % ointment Topical TID PRN methocarbamol (ROBAXIN) tablet 750 mg 750 mg Oral TID PRN methocarbamol (ROBAXIN) tablet 750 mg 750 mg Oral At Bedtime metoprolol succinate (TOPROL XL) extended release tablet 50 mg 50 mg Oral Daily nicotine (COMMIT) lozenge 2 mg 2 mg Oral Q1H PRN Or nicotine (NICORETTE) gum 2 mg 2 mg Oral Q1H PRN OLANZapine (ZyPREXA ZYDIS) disintegrating tablet 10 mg 10 mg Oral BID PRN pantoprazole DR (PROTONIX) tablet 40 mg 40 mg Oral Daily at 6 am QUEtiapine (SEROquel) tablet 800 mg 800 mg Oral At Bedtime tamsulosin (FLOMAX) capsule 0.4 mg 0.4 mg Oral Daily after a meal thiamine (VITAMIN B-1) tablet 100 mg 100 mg Oral Daily Food intake: Amount of Diet Consumed (last 3 days) Date/Time Intake (%) 08/16/23 1200 100%;Lunch 08/16/23 0803 100%;Breakfast 08/15/23 1705 100%;Dinner 08/15/23 1200 100%;Lunch 08/15/23 0700 100%;Breakfast 08/14/23 1711 100%;Dinner 08/14/23 1200 100%;Lunch 08/14/23 0822 100%;Breakfast 08/13/23 1700 100%;Dinner 08/13/23 1148 100%;Lunch 08/13/23 0800 100%;Breakfast ALLERGY Allergies Allergen Reactions Valproic Acid Other, see comments Excessive sedation Naltrexone Other, see comments Pt told RN he did not like it so he stopped taking it. MENTAL STATUS EXAM Filed Vitals: 08/15/23 0828 08/15/23 1133 08/15/23 1551 08/16/23 0800 BP: (!) 144/88 131/82 (!) 132/92 Pulse: 81 Resp: 16 16 Temp: 98 ??F (36.7 ??C) 98.6 ??F (37 ??C) TempSrc: Temporal Artery Skin SpO2: 96% 100% Weight: 91.5 kg (201 lb 11.2 oz) Height: Appearance: alert, improved eye contact, wearing scrubs, adequate grooming, appears older than stated age Behavior: engaged, less needy, less med seeking, sometimes externalizes blame, often threatens to resume contraindicated rx after d/c Motor: less restless Gait and Station: wide-based, steady Speech: normal in rate, normal in volume, less hyper-verbal / over-inclusive Language: intact Thought process: largely linear although rambling Thought content: did not endorse thoughts of self harm, SI, HI, AH, and/or VH; no overt paranoid / delusional content offered; focused on sleep and pain Associations: grossly intact Mood: neutral Affect: less anxious, more neutral, can become intense when discussing pain Orientation: grossly oriented Attention: intact Insight: poor Judgment: poor CONSULTATION HOSPITAL MEDICINE, 07/24/23: Assessment / Recommendations Follow up on labs show creat 0.96, returned to normal range and resolved USAMA. K is 5.1 but sample hemolyzed. med consulted on 07/23/23 because of chronic back/neck/shoulder pain. To me, pt reports chronic low back, B/L hip, and shoulder pain. Frustrated that doctors will not prescribe him opioids, and that they recommend against diclofenac due to kidney issues. 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 In several studies, NSAIDshave shown to further increase the risk for thrombotic CV events as well as bleeding events. He is on ASA and addition of NSAID will increase risk of GI bleeding, as well. No current red flag symptoms for neck/back/shoulder pain, actually appears more controlled than previously per patient's report/chart review. Plan: - gabapentin has been helpful - continue 600 mg TID - lidocaine patch lower back has been helpful - continue daily; also offer additional lidocaine patch for neck or shoulder pain if pt desires - tylenol 650 mg prn changed to 1000 mg TID scheduled - diclofenac gel ordered instead to use topically as less systemic absorption - Given patient's chronic difficult to control pain and his h/o of self medicating with meds he buys off internet, I do think it is important to find a pain regimen that will control pt's chronic pain in a meaningful way so that he is less likely to use the internet to buy pills that are not prescribed to him - given it is the weekend, pain team is not available, but would consider primary team consult them and/or send OP referral to pain clinic for patient at hospital discharge. Pain team was consulted during a previous admission in May 2023, but he was not interested in any options other than opioids at that time. He did not ask me about opioids during our visit, so I believe he may nowbe open to more options, perhaps even intraarticular injections for shoulder/hip/back pain. [employer] will sign off. Please reach out with any questions/concerns. Orin Nelson PA-C PAIN MANAGEMENT, 07/25: TREATMENT RECOMMENDATIONS/PLAN: Increase gabapentin to 1200mg TID Elavil 50mg QHS for sleep and nerve pain Change flexeril to robaxin 750 mg QID PRN NSAIDS could be considered in the future. Overall high risk patient with severe substance use disorder Will add non-opioid adjuvants. I did talk to him about suboxone; since he doesn't have opioid use disorder, this would not be my first preference. However, I would avoid pure opioid agonists at this time. ASSESSMENT AND RECOMMENDATIONS DISCUSSED WITH: Kristin Rutledge PA-C Thank you for consulting the Inpatient Pain Management Service. Please contact me with any questions or concerns. Aaron Galicia M.D. Addiction Medicine 08/09/23: ASSESSMENT/PLAN: 1. Alcohol use disorder, severe: Recent DUI. Patient is agreeable to treatment. States that he is on a stay of commitment. Challenged him to throw himself into his recovery. Discussed strategies for sobriety. Discussed the benefit of recovery meetings. Currently tolerating naltrexone but states he does not want to continue it. We will continue at discharge. 2. Methamphetamine/benzodiazepine use disorder: Discussed benefits of recovery meetings. Discussed benefits of 90 days of sobriety. Agrees to follow-up in my clinic. Bossman Franco MD CAM Alvarado is a 57 y.o. male who has been admitted to station [facility] for AH, paranoia, substance withdrawal, and possible [...] his room over the weekend. Admitted to [facility]: 07/20: Restless on exam. Reported +AH and +paranoia (under investigation - which he is starting toquestion as the truth). Less disorganized as compared to when on Medicine. He said he was not really sure about the events [employer]. He drinks alcohol heavily, nearly 3L of [employer] Ryan's rum per week. He has been prescribed Lexapro, but he is not consistent w taking it. Sometimes I need more, referring to self medicating. He used methamphetamine [employer]. He said he has +AH at his baseline, but while using methamphetamine, the +AH escalated and, it got bad. Someone could have . It all seemed so real. He said he began to think that he would be better off if he just used all of the methamph etamine, so he used some IV. His paranoia escalated and he began to feel like someone was going to come through his door, so I ate the rest of the bag b/c I thought I would need the rage and energy to fight them off. Guarded at times. Hesitantly, he denied having SI and he denied the [employer] event asa SA. 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 When initially in the ED, he reported +SI (also while on Medicine) and, when questioned about ingestion, he replied w not enough. Per chart review from the 05/2023 Medicine admission (admitted for erratic driving / legal blood draw, while in the ED he had a syncopal episode and required Medicine admission then transfer to [facility]): He reports that he had about 2 hospitalizations in the past month. One in [facility] (04/24/2022) for acute toxic encephalopathy, drug overdose (cannabinoids, methamphetamine), and alcohol withdrawal w/ delirium tremens which required large amount of benzo. He says he had another hospitalization in [place]. He reports that one of these hospitalizations led to ICU stay and he was told that his kidney were failing, but no detailed records of outside hospital stay are available on admission. 07/21: Restless, argumentative, anxious, irritable, and illogical. He is agreeable to YASMEEN tx, especially to access psychotherapy, knowing it will likely eventually be court ordered. However, he also stated that he has no intentions of quitting alcohol all together, but only cutting back, b/c of his chronic pain. Additionally, he is unwilling to stay in the hospital beyond his 72h hold, in order tofacilitate a door to door transfer to YASMEEN tx. He was educated on his risk of relapse and reminded of his recent hospitalizations, related to use / overdosing. Pt was reminded that he himself stated someone could have in relation to the events prior to this admission. He does not see his drinking as a problem, stating, I don't drive. Manager Convention noted that he recently missed a court date for aDUI charge and, last hospitalization here, he was brought here for a legal blood draw after being stopped for erratic driving. When asked about the pill bottles that were scattered around him, when found [employer], he could not give an explanation. Will file a petition for civil commitment. 07/22: Quite tense, irritable, and rude on approach. Said he wants to d/c directly to [facility] he suspects there must be a bench warrant issued for his arrest d/t missing a DUI court date a few weeks back. He slept better, but asked for PRN Benadryl instead of PRN Melatonin. Thought processwas linear. No overt paranoia. Reported +AH last edil. [facility] is supporting petition for commitment. 07/23: He is frustrated w not being able to access an opioid or Voltaren for his chronic pain. He has no insight into risk / benefit considerations. He is resistant to any treatment that takes more effort than popping a pill. He reluctantly agreed to a pain medicine consult. He was noted to be diaphoretic, but has not been scoring high enough on CIWA to warrant PRN BZD. He talked at length about his oldest son's by hanging and about how he has struggled in the aftermath and has failed to adequately support his second son over the years. His second son has attempted suicide numerous timesand is currently in [facility] tx. He added, I must before him. The pt talked about his hinduism bel iefs, about not believing in suicide, but having come to the conclusion that even someone who does not believe in suicide can get to the point of attempting suicide. He denied thoughts of self harm, SI, HI, and VH. He reported +AH and +tactile hallucinations >> hypnagogic-like. Affect was anxious, tense, and irritable. 07/24: No diaphoresis today. Using PRNs for sleep. Denied further AH, VH, or tactile hallucinations.(However, his report of hallucinations varies from person to person.) Agreeable to med trials for various concerns, but tends to want to immediately jump to large doses. Anxious, intense at times, and restless. Thought process is largely linear. Denied SI / HI. He mentioned this hospitalization as the 4th time he's been in the ICU in as many months. 07/25: More elevated, animated, intense, and irritable. Continues restless. Med seeking - more of (to include opioids, BZD, and now stimulants, but also other more benign meds) - and wanting to go straight to high doses. He is a very inconsistent historian w details changing from day to day, person to person. Memory impairment is noted. He noted that he did not trash his kidneys as badly prior to this admission as compared to his other 3 recent admissions. He minimized the significance of his past renal injury and dismissed the warnings he has received by healthcare professionals re the risks to his vital organs. He called them over-dramatic. Denied AH / SI. +Paranoia re demons? Hyper-verbal. 07/26: Continued fixation on medications, feels he is in need of something additional for both pain and sleep -- pt offers diclofenac and Xanax as effective interventions, but understanding when web content writer offered renal concerns with diclofenac and habit-forming tendencies with Xanax. Pt hopeful for Benadryl for sleep which was agreed upon. Discussed Gabapentin additionally as options for both pain, sleep and RLS. 07/27: Less intense, irritable than yesterday and reporting sufficient sleep for the first time in years. Generally fixated on pain, medication options in case things fail down the road during current hospitalization. Apart from this, pt occasionally offers comments about how Xanax and opiate medications would simplify my long med list, but redirectable. 07/28: Largely unchanged, though briefly frustrated with not having Robaxin scheduled. Will do so moving forward per his request. Feels ready for CD referrals, aware that final commitment hearing is not until next week. 07/29: Planning out possible medication changes on a daily basis, frequently asks what next step is if certain medications do not work for him long-term, additionally routes interview back to discussion of pain/diclofenac several times throughout interaction. Very focused on medication regimen schedule. 07/30: Continued fixation on possible medication options moving forward, today mostly surrounding safety profile of medications with alcohol use. Additionally reported voices over the last couple of days, previously withheld from treatment team as he thought this would result in Seroquel being takenaway. 07/31: Unchanged; required. Alexisaxin last night for sleep, had difficulty sleeping through the night for 1st time in several days. Agreed to keep medications as are for now, revisit sleep augmentation if issues persist. Otherwise, no changes. 08/01: Persistent request to have suicidal ideation/status clarified by current team, fearful of having this label carried over into time at treatment. Otherwise, reported worse sleep for the past twodays and would appreciate increase in amitriptyline which web content writer agreed to. 08/02: Pt calm, cooperative and medication compliant. Denies psych symptoms. He reports being in agreement with need for CD treatment but argues 3 months is too long as he is the primary provider for his adult son who also struggles with alcohol use/abuse. Discussed benefits for in-patient and hopefully pt will be able to help his son through addiction but the pt argues other james. He believes hisproblem is not meth rather alcohol and he can limit himself. Pt is argumentative and has no insighton dangerous behaviors poses increased risk. Reports adequate sleep since admission. 08/03: Stressed, anxious about court hearing tomorrow. Anticipates he will be committed but does notlike the language as it seems forceful rather then voluntary. Discussed CD tx options and support systems as he work to archived sobriety. Motivated to seek help so as to help his son. Report good sleep the past nights. Requested his records be doctored for suicide because he was never suicidal and does not want belongings taken away when he gets to treatment. 08/04: Mixed of emotions today. Pt had courts earlier today and is excited he was given a SOC as it gives him more options and means of helping his son as well. Pt continued to express committment to CD treatment. He hopes he and son can team up and do AA together. Reports adequate sleep at night. Denies psych symptoms. Re-consulted addiction medicine as the pt is more open to discussion/medication assisted treatment. 08/05: Improved mood. Pt is more open-minded to recommendations regarding treatment. He reports improve sleep on current regimen. He hoes that continues. Discussed sleep hygiene, recommended CBT-I forongoing insomnia. 08/06: Continue to have good sleep. Remains committed to CD tx and then AA but opposed to MAT. Pt wasseen by Addiction med and he was started on Naltrexone. Pt is refusing med stating he does not need it. He is minimizing his alcohol and stating he can self limit his alcohol usage. Shows limited insight into his addiction. Using Zyprexa PRN almost every night to resume sleep which has been effective. Will continue to evaluate the need for scheduled Zyprexa as pt denies psych symptoms. Pt was seen by spiritual care and that has helped improved his mood. 08/07: Pt is feeling sore but otherwise good. Reports adequate sleep despite some interruption during the night. Pt requesting diclofenac oral instead of the gel for chronic pain. Chart review showedconsult from pain med and med hold off on diclofenac due to concerns for kidney issues however creatinine (07/22 was 0.96) has normalized. Will reach out to pain management to see if it is appropriate to add diclofenac and d/c motrin due to significant chronic pain history. Pt case is challengingas he is determined to resolve to getting his meds from online sources. 08/08: Calm and cooperative. Refused Naltrxone so it was discontinued. Lab draw showed elevated creatinine levels of 1.24. Will plan to repeat lab on 08/10. Remains fixated on pain management. 08/09: Pt reported currently getting decent sleep. He perseverated on pain control and on getting either Ibu or Voltaren prescribed again. He has no insight into the risk of renal insult. He suggested being prescribed a little bit of an opioid to have on hand when things get really bad. Nothingoutside of a pill is doable after d/c. Pt lacks accountability for his past behaviors and use andthe resulting consequences. Referral to [place]. Speech is hyper- verbal / over-inclusive and somewhat pressured. He is less restless. No overt paranoia. 08/10: Good participation in OT groups. Overnight sleep was better than usual. (Nearly 8h documented.) He is hopeful for [facility] tx at [place]. Per his usual, seemingly in hopes of getting a prescription, he added a veiled threat to use NSAIDs and/or opioids on his own after d/c, feeling he has no other choice. No insight into his kidney health or addiction. I'd rather my kidneys fail than live inmein. 08/11: Less restless. Less med seeking. Reported very acceptable sleep and improved pain control. Denied further paranoia or AH (as reported during initial part of hospitalization). Eager for YASMEEN tx.He became emotional when speaking about his mother and son. Pt was able to verbalize his positive reasons (mostly family related) for staying sober. He looks forward to my kidneys healing so that he can resume Voltaren. 08/12: Good OT attendance. Pt reported last night's sleep to be pretty good, but as usual, he did wake and take PRNs (for sleep and pain). Despite acknowledging that his pain control is reasonable atpresent, he perseverates on what might happen once he returns home after treatment, becoming irritable and intense. He says topicals will not be suitable. He again made what seem like threats to go back to using Voltaren (and Xanax) even if it means taking 10 years off the top of my life. 08/13: Visible in the milieu. Adequate sleep, although he does wake and get PRNs, usually around ~2a.At length, we discussed his kidney health, avoiding nephrotoxins, and maintaining adequate hydration. He remains focused on restarting NSAIDs, sometimes Xanax, and especially Voltaren, noting, I have no choice! He poses different scenarios, wanting the recommendation that he wants to hear. 08/14: Engaged w peers last edil. Today, ?paranoid re staff playing me over the shaver. He offered that scheduled Zyprexa at bedtime seems unnecessary as it has not changed his sleep pattern. We agreeto d/c and continue PRN. Continues hopeful of resuming Voltaren at some point. He believes the amount of bubbles in his urine indicates the level of renal function. 08/15: Verbalized satisfaction w his sleep and pain control. However, he feels he has no choice but to resume NSAIDs / Voltaren at some point. In his opinion, the benefit of improved pain outweighs the risk of CKD / dialysis / shortened life span. We discussed his problematic [employer] insurance and options for YASMEEN tx after d/c. He has been social and encouraging to peers. He is improved. DIAGNOSES & PLAN Principal Psychiatric / Substance Use Diagnoses: - encephalopathy s/p ingestion: improved - bipolar disorder w psychosis vs SCAD by hx - r/o substance induced psychosis - alcohol use disorder, severe - methamphetamine use disorder, severe - BZD use disorder, severe - alcohol / BZD withdrawal Medical Concerns to be addressed: - USAMA: sCr again elevated after recent NSAID use - ?element of CKD? - mild rhabdomyolysis: improved - chronic back pain: see Medicine / Pain consult - HTN: norvasc, increased toprol xl - GERD: restarted PPI - HLD: restarted statin - LUTS: flomax - Patient with moderate malnutrition in the context of social/environmental circumstances during hospital stay and remains with no acute or chronic nutrition problems at this time. Patient requiring additional resources due to degree of malnutrition during hospital stay. Dietitian following with the following nutrition therapy plan: 1.) Ok to continue boost TID 2.) RDN to sign off, please consult as needed Medication Ordered/Consults/Labs/Tests Ordered: 07/18: Delirium precautions ordered. Seroquel ordered 100 mg QHS and 50 mg q4PRN. Zyprexa 5 PO mg vs10 mg IV - TID PRN if needed. UDS ordered. Will order high dosed Thiamine. Will order addiction consult. Gabapentin 300 mg TID ordered for withdrawal symptoms. 07/19: Increase quetiapine to 100mg TID. HEAD [employer] dose was 800mg qHS. UDS+ for amphetamines. 07/20: Will give Seroquel 200mg at bedtime this edil then combine doses / change dose to 400mg po qhs. Will titrate to HEAD [employer] dose of 800mg po qhs as tolerated / indicated. Hold Lexapro for now. He has not been consistently taking it. Increase Neurontin to 600mg po TID. Offer Zyprexa 10mg po BID PRN. Continue CIWA protocol w PRN Valium and PRN Clonidine. 07/21: Lidocaine patch daily. Medicine consult if PCH is issued. 07/22: Medicine consult for chronic back pain management. Increase Seroquel to 500mg po qhs. D/c PRNMelatonin and replace w PRN Benadryl. 07/23: Increase Seroquel to 600mg po qhs. Per his request, change Flexeril 10mg from TID PRN to TID.Will avoid Requip for RLS as it could worsen his DC sxs. Instead, will increase Neurontin to 900mg po TID. Spiritual care consult ordered. 07/24: Advance Seroquel to 700mg po qhs. Add Trazodone 50mg po qhs + 50mg po qhs PRN. Changed Benadryl to PRN itching only as this could worsen RLS, if that is truly what he has. Will discuss the possibility of akathisia (vs RLS) tomorrow. 07/25: Increase Seroquel to his [employer] dose of 800mg po qhs. Add a 2nd Lidocaine patch. Maximize daily APAP dose by allowing a daily PRN dose to his TID scheduled APAP. Pain Management consult placed. Trial Cogentin 1mg po BID for possible akathisia. D/c PRN Benadryl as he has Trazodone available. D/c CIWA. 07/26: MONTEZ Burr, may consider non-cardioselective beta messi in place of Toprol (ie. Inderal) for better akathisia coverage if RLS symptoms do not improve with increased Gabapentin. 07/27: Desonide cream BID for dermatitis. 07/28: Scheduled Robaxin 750 mg hs per pt request. 07/29 -- : No change. 08/01: EKG 08/02 AM. Amitriptyline to 100 mg hs. 08/02-: No change 08/04: Consult Addiction medicine 08/05: Per addiction med Naltrexone 50 mg daily 08/06: No change 08/07: Recheck BMP in the AM 08/08: Labs reviewed. Creatinine elevated 1.24. Recheck BMP on 08/10. Discontinue Naltrexone and Motrin. 08/09: Resume APAP 1000mg po TID. 08/10: Add an additional Lidoderm for his neck. Increase Toprol XL to 50mg po qday. 08/11: No med changes. 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 08/13: No med changes. 08/14: D/c scheduled bedtime Zyprexa as it has not changed his sleep pattern. (Continue w PRN.) 08/15: No med changes. sCr remains mildly elevated. Avoid nephrotoxins. Discharge appointments needed: PCP, Pain Medicine, Addiction Medicine (if pt is willing) Milieu Management: Admit to: Medicine (IPF) >> NE4 Legal: >> >> SOC Acuity level: YELLOW Encouraged the patient to participate in unit activities. Level of Observation: No additional monitoring needed RE-CERTIFICATION & RISK ASSESSMENT The patient continues to need, on a daily basis, active inpatient psychiatric treatment for ongoingdiagnostic assessment and treatment of the following symptoms: AH, paranoia, substance withdrawal, and possible SI w possible SA prior to admission. The treatment can reasonably be expected to improve the patient's condition. Estimated length of stay is 30 days. Anticipated disposition: YASME[facility] tx Risk Assessment: assault: Medium - paranoid Suicide Risk: Low Patient Strengths: willing to take medications This patient was also interviewed and examined by Dr. Crawley and the treatment plan was reviewed andagreed upon. Kristin Rutledge PA-C * Kristin Rutledge PA-C - 08/15/2023 2:40 PM CDT [facility] Psychiatry Progress Note PATIENT NAME: Nicanor Alvarado DATE OF SERVICE: 08/15/2023 ATTENDING PRACTITIONER: Kristin Rutledge PA-C HOSPITAL DAY # 26 CHIEF COMPLAINT subsequent inpatient psychiatric encounter INTERVAL HISTORY Nicanor Alvarado was seen in f/u by web content writer and MD. Providers complimented his new haircut. He saidhe has been trying for a haircut since he arrived here, but was told there was no shaver. Two people lied to me. They're playing a game w me. He offered that scheduled Zyprexa at bedtime seems unnecessary as it has not changed his sleep pattern. We agree to d/c. He said he has a h/o 12 surgeries and needs at least one more on his L rotator cuff. I'm looking forward to getting Voltaren pills again. I'm thinking positively. He noted fewer bubbles in the toilet when he urinates which, to him, means less renal dysfunction. He inquired about retesting his renal function. REVIEW OF SYSTEMS Constitutional: did not endorse physical health concerns aside from as discussed above + chronic back / neck pain Psychiatric: did not endorse thoughts of self harm, SI, HI, paranoia, AH, and/or VH; see above Medication side effects: none endorsed CHART REVIEW & MULTIDISCIPLINARY TEAM MEETING Met with the multidisciplinary treatment team and discussed care and treatment planning. RN Report: Subjective: Can I have the Aspercreme since I already have a Lidocaine patch on? Objective: Tom spends the evening on the unit, watching tv or having heavy conversations with peersabout politics, the Earth and other random topics. He is pleasant, calm and controlled. Denies SI, HI, hallucinations or pain. Was given Aspercreme gel x2, cold packs through shift for neck(07/15) andback (05/15) pain. Compliant with meds. SW Report: reviewed and discussed Group attendance and participation: 05/08 OT PRN medications: reviewed MAR OBJECTIVE Hours of Sleep: Patient Vitals for the past 72 hrs: Sleep Hours 08/15/23 1430 0.3 HOURS 08/15/23 0619 7.3 HOURS 08/14/23 2221 1.3 HOURS 08/14/23 1500 0.5 HOURS 08/14/23 0629 6.3 HOURS 08/13/23 2243 1.3 HOURS 08/13/23 1426 1.3 HOURS 08/13/23 0615 7 HOURS 08/12/23 2239 1 HOURS LABS: No results found for this or any previous visit (from the past 24 hour(s)). Current Facility-Administered Medications Medication Dose Route Frequency acetaminophen (TYLENOL) tablet 1,000 mg 1,000 mg Oral DAILY PRN acetaminophen (TYLENOL) tablet 1,000 mg 1,000 mg Oral TID amitriptyline (ELAVIL) tablet 100 mg 100 mg Oral At Bedtime amLODIPine (NORVASC) tablet 5 mg 5 mg Oral Daily aspirin chewable tablet 81 mg 81 mg Oral Daily atorvastatin (LIPITOR) tablet 20 mg 20 mg Oral Evening senna (SENOKOT) tablet 2 Tablet 2 Tablet Oral BID PRN And polyethylene glycol (MIRALAX) oral powder 17 g 17 g Oral DAILY PRN And bisacodyl (DULCOLAX) rectal suppository 10 mg 10 mg Rectal DAILY PRN calcium carbonate (TUMS) chewable tablet 1,000 mg 1,000 mg Oral Q4H PRN desonide (DESOWEN) 0.05 % cream Topical BID diclofenac (VOLTAREN) gel 2 g 2 g Topical QID PRN diphenhydrAMINE (BENADRYL) capsule 50 mg 50 mg Oral At Bedtime diphenhydrAMINE (BENADRYL) capsule 50 mg 50 mg Oral DAILY PRN folic acid tablet 1 mg 1 mg Oral Daily gabapentin (NEURONTIN) capsule 1,200 mg 1,200 mg Oral TID lidocaine (ASPERCREAM) 4 % patch 1 Patch 1 Patch Transdermal Daily lidocaine (ASPERCREAM) 4 % patch 2 Patch 2 Patch Transdermal Daily lidocaine (XYLOCAINE) 5 % ointment Topical TID PRN methocarbamol (ROBAXIN) tablet 750 mg 750 mg Oral TID PRN methocarbamol (ROBAXIN) tablet 750 mg 750 mg Oral At Bedtime metoprolol succinate (TOPROL XL) extended release tablet 50 mg 50 mg Oral Daily nicotine (COMMIT) lozenge 2 mg 2 mg Oral Q1H PRN Or nicotine (NICORETTE) gum 2 mg 2 mg Oral Q1H PRN OLANZapine (ZyPREXA ZYDIS) disintegrating tablet 10 mg 10 mg Oral BID PRN pantoprazole DR (PROTONIX) tablet 40 mg 40 mg Oral Daily at 6 am QUEtiapine (SEROquel) tablet 800 mg 800 mg Oral At Bedtime tamsulosin (FLOMAX) capsule 0.4 mg 0.4 mg Oral Daily after a meal thiamine (VITAMIN B-1) tablet 100 mg 100 mg Oral Daily Food intake: Amount of Diet Consumed (last 3 days) Date/Time Intake (%) 08/15/23 1200 100%;Lunch 08/15/23 0700 100%;Breakfast 08/14/23 1711 100%;Dinner 08/14/23 1200 100%;Lunch 08/14/23 0822 100%;Breakfast 08/13/23 1700 100%;Dinner 08/13/23 1148 100%;Lunch 08/13/23 0800 100%;Breakfast 08/12/23 1700 100%;Dinner 08/12/23 0812 100%;Breakfast ALLERGY Allergies Allergen Reactions Valproic Acid Other, see comments Excessive sedation Naltrexone Other, see comments Pt told RN he did not like it so he stopped taking it. MENTAL STATUS EXAM Filed Vitals: 08/15/23 0800 08/15/23 0828 08/15/23 1133 08/15/23 1551 BP: (!) 143/83 (!) 144/88 131/82 Pulse: 75 81 Resp: 18 16 Temp: 98.3 ??F (36.8 ??C) 98 ??F (36.7 ??C) TempSrc: Temporal Artery Temporal Artery SpO2: 96% 96% Weight: 91.5 kg (201 lb 11.2 oz) Height: Appearance: alert, intermittent eye contact, wearing scrubs, adequate grooming, appears older than stated age Behavior: engaged, less needy, less med seeking, externalizes blame, threatens to resume contraindicated rx after d/c Motor: less restless Gait and Station: wide-based, steady Speech: normal in rate, normal in volume, less hyper-verbal / over-inclusive, less pressured Language: intact Thought process: largely linear although rambling Thought content: did not endorse thoughts of self harm, SI, HI, AH, and/or VH; no overt delusional content offered; focused on sleep and pain; ?paranoid Associations: grossly intact Mood: I'm thinking positively. Affect: anxious to neutral to intense Orientation: grossly oriented Attention: intact Insight: poor Judgment: poor CONSULTATION [facility], 07/24/23: Assessment / Recommendations Follow up on labs show creat 0.96, returned to normal range and resolved USAMA. K is 5.1 but sample hemolyzed. med consulted on 07/23/23 because of chronic back/neck/shoulder pain. To me, pt reports chronic low back, B/L hip, and shoulder pain. Frustrated that doctors will not prescribe him opioids, and that they recommend against diclofenac due to kidney issues. 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 Although from a kidney perspective it may be safe to use NSAIDs, danny for an acute/short term need,I still do not believe this is the best nursing home medication for this patient for pain control moreso because of his cardiac risks with longstanding HLD, HTN, age, gender. In several studies, NSAIDshave shown to further increase the risk for thrombotic CV events as well as bleeding events. He is on ASA and addition of NSAID will increase risk of GI bleeding, as well. No current red flag symptoms for neck/back/shoulder pain, actually appears more controlled than previously per patient's report/chart review. Plan: - gabapentin has been helpful - continue 600 mg TID - lidocaine patch lower back has been helpful - continue daily; also offer additional lidocaine patch for neck or shoulder pain if pt desires - tylenol 650 mg prn changed to 1000 mg TID scheduled - diclofenac gel ordered instead to use topically as less systemic absorption - Given patient's chronic difficult to control pain and his h/o of self medicating with meds he buys off internet, I do think it is important to find a pain regimen that will control pt's chronic pain in a meaningful way so that he is less likely to use the internet to buy pills that are not prescribed to him - given it is the weekend, pain team is not available, but would consider primary team consult them and/or send OP referral to pain clinic for patient at hospital discharge. Pain team was consulted during a previous admission in May 2023, but he was not interested in any options other than opioids at that time. He did not ask me about opioids during our visit, so I believe he may nowbe open to more options, perhaps even intraarticular injections for shoulder/hip/back pain. med will sign off. Please reach out with any questions/concerns. Orin Nelson PA-C PAIN MANAGEMENT, 07/25: TREATMENT RECOMMENDATIONS/PLAN: Increase gabapentin to 1200mg TID Elavil 50mg QHS for sleep and nerve pain Change flexeril to robaxin 750 mg QID PRN NSAIDS could be considered in the future. Overall high risk patient with severe substance use disorder Will add non-opioid adjuvants. I did talk to him about suboxone; since he doesn't have opioid use disorder, this would not be my first preference. However, I would avoid pure opioid agonists at this time. ASSESSMENT AND RECOMMENDATIONS DISCUSSED WITH: Kristin Rutledge PA-C Thank you for consulting the Inpatient Pain Management Service. Please contact me with any questions or concerns. Aaron Galicia M.D. Addiction Medicine 08/09/23: ASSESSMENT/PLAN: 1. Alcohol use disorder, severe: Recent DUI. Patient is agreeable to treatment. States that he is on a stay of commitment. Challenged him to throw himself into his recovery. Discussed strategies for sobriety. Discussed the benefit of recovery meetings. Currently tolerating naltrexone but states he does not want to continue it. We will continue at discharge. 2. Methamphetamine/benzodiazepine use disorder: Discussed benefits of recovery meetings. Discussed benefits of 90 days of sobriety. Agrees to follow-up in my clinic. Bossman Franco MD CAM Alvarado is a 57 y.o. male who has been admitted to station [facility] for AH, paranoia, substance withdrawal, and possible [...] his room over the weekend. Admitted to [facility]: 07/20: Restless on exam. Reported +AH and +paranoia (under investigation - which he is starting toquestion as the truth). Less disorganized as compared to when on Medicine. He said he was not really sure about the events [employer]. He drinks alcohol heavily, nearly 3L of [employer]'s rum per week. He has been prescribed Lexapro, but he is not consistent w taking it. Sometimes I need more, referring to self medicating. He used methamphetamine [employer]. He said he has +AH at his baseline, but while using methamphetamine, the +AH escalated and, it got bad. Someone could have . It all seemed so real. He said he began to think that he would be better off if he just used all of the methamph etamine, so he used some IV. His paranoia escalated and he began to feel like someone was going to come through his door, so I ate the rest of the bag b/c I thought I would need the rage and energy to fight them off. Guarded at times. Hesitantly, he denied having SI and he denied the [employer] event asa SA. 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 When initially in the ED, he reported +SI (also while on Medicine) and, when questioned about ingestion, he replied w not enough. Per chart review from the 05/2023 Medicine admission (admitted for erratic driving / legal blood draw, while in the ED he had a syncopal episode and required Medicine admission then transfer to [facility]): He reports that he had about 2 hospitalizations in the past month. One in [facility] (04/24/2022) for acute toxic encephalopathy, drug overdose (cannabinoids, methamphetamine), and alcohol withdrawal w/ delirium tremens which required large amount of benzo. He says he had another hospitalization in [place]. He reports that one of these hospitalizations led to ICU stay and he was told that his kidney were failing, but no detailed records of outside hospital stay are available on admission. 07/21: Restless, argumentative, anxious, irritable, and illogical. He is agreeable to YASMEEN tx, especially to access psychotherapy, knowing it will likely eventually be court ordered. However, he also stated that he has no intentions of quitting alcohol all together, but only cutting back, b/c of his chronic pain. Additionally, he is unwilling to stay in the hospital beyond his 72h hold, in order tofacilitate a door to door transfer to Y[facility]MEEN tx. He was educated on his risk of relapse and reminded of his recent hospitalizations, related to use / overdosing. Pt was reminded that he himself stated someone could have in relation to the events prior to this admission. He does not see his drinking as a problem, stating, I don't drive. Manager Convention noted that he recently missed a court date for aDUI charge and, last hospitalization here, he was brought here for a legal blood draw after being stopped for erratic driving. When asked about the pill bottles that were scattered around him, when found [employer], he could not give an explanation. Will file a petition for civil commitment. 07/22: Quite tense, irritable, and rude on approach. Said he wants to d/c directly to [facility] he suspects there must be a bench warrant issued for his arrest d/t missing a DUI court date a few weeks back. He slept better, but asked for PRN Benadryl instead of PRN Melatonin. Thought processwas linear. No overt paranoia. Reported +AH last edil. [facility] is supporting petition for commitment. 07/23: He is frustrated w not being able to access an opioid or Voltaren for his chronic pain. He has no insight into risk / benefit considerations. He is resistant to any treatment that takes more effort than popping a pill. He reluctantly agreed to a pain medicine consult. He was noted to be diaphoretic, but has not been scoring high enough on CIWA to warrant PRN BZD. He talked at length about his oldest son's by hanging and about how he has struggled in the aftermath and has failed to adequately support his second son over the years. His second son has attempted suicide numerous timesand is currently in [facility]EN tx. He added, I must before him. The pt talked about his hinduism bel iefs, about not believing in suicide, but having come to the conclusion that even someone who does not believe in suicide can get to the point of attempting suicide. He denied thoughts of self harm, SI, HI, and VH. He reported +AH and +tactile hallucinations >> hypnagogic-like. Affect was anxious, tense, and irritable. 07/24: No diaphoresis today. Using PRNs for sleep. Denied further AH, VH, or tactile hallucinations.(However, his report of hallucinations varies from person to person.) Agreeable to med trials for various concerns, but tends to want to immediately jump to large doses. Anxious, intense at times, and restless. Thought process is largely linear. Denied SI / HI. He mentioned this hospitalization as the 4th time he's been in the ICU in as many months. 07/25: More elevated, animated, intense, and irritable. Continues restless. Med seeking - more of (to include opioids, BZD, and now stimulants, but also other more benign meds) - and wanting to go straight to high doses. He is a very inconsistent historian w details changing from day to day, person to person. Memory impairment is noted. He noted that he did not trash his kidneys as badly prior to this admission as compared to his other 3 recent admissions. He minimized the significance of his past renal injury and dismissed the warnings he has received by healthcare professionals re the risks to his vital organs. He called them over-dramatic. Denied AH / SI. +Paranoia re demons? Hyper-verbal. 07/26: Continued fixation on medications, feels he is in need of something additional for both pain and sleep -- pt offers diclofenac and Xanax as effective interventions, but understanding when web content writer offered renal concerns with diclofenac and habit-forming tendencies with Xanax. Pt hopeful for Benadryl for sleep which was agreed upon. Discussed Gabapentin additionally as options for both pain, sleep and RLS. 07/27: Less intense, irritable than yesterday and reporting sufficient sleep for the first time in years. Generally fixated on pain, medication options in case things fail down the road during current hospitalization. Apart from this, pt occasionally offers comments about how Xanax and opiate medications would simplify my long med list, but redirectable. 07/28: Largely unchanged, though briefly frustrated with not having Robaxin scheduled. Will do so moving forward per his request. Feels ready for CD referrals, aware that final commitment hearing is not until next week. 07/29: Planning out possible medication changes on a daily basis, frequently asks what next step is if certain medications do not work for him long-term, additionally routes interview back to discussion of pain/diclofenac several times throughout interaction. Very focused on medication regimen schedule. 07/30: Continued fixation on possible medication options moving forward, today mostly surrounding safety profile of medications with alcohol use. Additionally reported voices over the last couple of days, previously withheld from treatment team as he thought this would result in Seroquel being takenaway. 07/31: Unchanged; required. Robaxin last night for sleep, had difficulty sleeping through the night for 1st time in several days. Agreed to keep medications as are for now, revisit sleep augmentation if issues persist. Otherwise, no changes. 08/01: Persistent request to have suicidal ideation/status clarified by current team, fearful of having this label carried over into time at treatment. Otherwise, reported worse sleep for the past twodays and would appreciate increase in amitriptyline which web content writer agreed to. 08/02: Pt calm, cooperative and medication compliant. Denies psych symptoms. He reports being in agreement with need for CD treatment but argues 3 months is too long as he is the primary provider for his adult son who also struggles with alcohol use/abuse. Discussed benefits for in-patient and hopefully pt will be able to help his son through addiction but the pt argues other james. He believes hisproblem is not meth rather alcohol and he can limit himself. Pt is argumentative and has no insighton dangerous behaviors poses increased risk. Reports adequate sleep since admission. 08/03: Stressed, anxious about court hearing tomorrow. Anticipates he will be committed but does notlike the language as it seems forceful rather then voluntary. Discussed CD tx options and support systems as he work to archived sobriety. Motivated to seek help so as to help his son. Report good sleep the past nights. Requested his records be doctored for suicide because he was never suicidal and does not want belongings taken away when he gets to treatment. 08/04: Mixed of emotions today. Pt had courts earlier today and is excited he was given a SOC as it gives him more options and means of helping his son as well. Pt continued to express committment to CD treatment. He hopes he and son can team up and do AA together. Reports adequate sleep at night. Denies psych symptoms. Re-consulted addiction medicine as the pt is more open to discussion/medication assisted treatment. 08/05: Improved mood. Pt is more open-minded to recommendations regarding treatment. He reports improve sleep on current regimen. He hoes that continues. Discussed sleep hygiene, recommended CBT-I forongoing insomnia. 08/06: Continue to have good sleep. Remains committed to CD tx and then AA but opposed to MAT. Pt wasseen by Addiction med and he was started on Naltrexone. Pt is refusing med stating he does not need it. He is minimizing his alcohol and stating he can self limit his alcohol usage. Shows limited insight into his addiction. Using Zyprexa PRN almost every night to resume sleep which has been effective. Will continue to evaluate the need for scheduled Zyprexa as pt denies psych symptoms. Pt was seen by spiritual care and that has helped improved his mood. 08/07: Pt is feeling sore but otherwise good. Reports adequate sleep despite some interruption during the night. Pt requesting diclofenac oral instead of the gel for chronic pain. Chart review showedconsult from pain med and med hold off on diclofenac due to concerns for kidney issues however creatinine (07/22 was 0.96) has normalized. Will reach out to pain management to see if it is appropriate to add diclofenac and d/c motrin due to significant chronic pain history. Pt case is challengingas he is determined to resolve to getting his meds from online sources. 08/08: Calm and cooperative. Refused Naltrxone so it was discontinued. Lab draw showed elevated creatinine levels of 1.24. Will plan to repeat lab on 08/10. Remains fixated on pain management. 08/09: Pt reported currently getting decent sleep. He perseverated on pain control and on getting either Ibu or Voltaren prescribed again. He has no insight into the risk of renal insult. He suggested being prescribed a little bit of an opioid to have on hand when things get really bad. Nothingoutside of a pill is doable after d/c. Pt lacks accountability for his past behaviors and use andthe resulting consequences. Referral to [place]. Speech is hyper- verbal / over-inclusive and somewhat pressured. He is less restless. No overt paranoia. 08/10: Good participation in OT groups. Overnight sleep was better than usual. (Nearly 8h documented.) He is hopeful for YASMEEN tx at [place]. Per his usual, seemingly in hopes of getting a prescription, he added a veiled threat to use NSAIDs and/or opioids on his own after d/c, feeling he has no other choice. No insight into his kidney health or addiction. I'd rather my kidneys fail than live inpain. 08/11: Less restless. Less med seeking. Reported very acceptable sleep and improved pain control. Denied further paranoia or AH (as reported during initial part of hospitalization). Eager for YASMEEN tx.He became emotional when speaking about his mother and son. Pt was able to verbalize his positive reasons (mostly family related) for staying sober. He looks forward to my kidneys healing so that he can resume Voltaren. 08/12: Good OT attendance. Pt reported last night's sleep to be pretty good, but as usual, he did wake and take PRNs (for sleep and pain). Despite acknowledging that his pain control is reasonable atpresent, he perseverates on what might happen once he returns home after treatment, becoming irritable and intense. He says topicals will not be suitable. He again made what seem like threats to go back to using Voltaren (and Xanax) even if it means taking 10 years off the top of my life. 08/13: Visible in the milieu. Adequate sleep, although he does wake and get PRNs, usually around ~2a.At length, we discussed his kidney health, avoiding nephrotoxins, and maintaining adequate hydration. He remains focused on restarting NSAIDs, sometimes Xanax, and especially Voltaren, noting, I have no choice! He poses different scenarios, wanting the recommendation that he wants to hear. 08/14: Engaged w peers last edil. Today, ?paranoid re staff playing me over the shaver. He offered that scheduled Zyprexa at bedtime seems unnecessary as it has not changed his sleep pattern. We agreeto d/c and continue PRN. Continues hopeful of resuming Voltaren at some point. He believes the amount of bubbles in his urine indicates the level of renal function. DIAGNOSES & PLAN Principal Psychiatric / Substance Use Diagnoses: - encephalopathy s/p ingestion: improved - bipolar disorder w psychosis vs SCAD by hx - r/o substance induced psychosis - alcohol use disorder, severe - methamphetamine use disorder, severe - BZD use disorder, severe - alcohol / BZD withdrawal Medical Concerns to be addressed: - USAMA: sCr again elevated after recent NSAID use - ?element of CKD? - mild rhabdomyolysis: improved - chronic back pain: see Medicine / Pain consult - HTN: norvasc, increased toprol xl - GERD: restarted PPI - HLD: restarted statin - LUTS: flomax - Patient with moderate malnutrition in the context of social/environmental circumstances during hospital stay and remains with no acute or chronic nutrition problems at this time. Patient requiring additional resources due to degree of malnutrition during hospital stay. Dietitian following with the following nutrition therapy plan: 1.) Ok to continue boost TID 2.) RDN to sign off, please consult as needed Medication Ordered/Consults/Labs/Tests Ordered: 07/18: Delirium precautions ordered. Seroquel ordered 100 mg QHS and 50 mg q4PRN. Zyprexa 5 PO mg vs10 mg IV - TID PRN if needed. UDS ordered. Will order high dosed Thiamine. Will order addiction consult. Gabapentin 300 mg TID ordered for withdrawal symptoms. 07/19: Increase quetiapine to 100mg TID. [employer] dose was 800mg qHS. UDS+ for amphetamines. 07/20: Will give Seroquel 200mg at bedtime this edil then combine doses / change dose to 400mg po qhs. Will titrate to [employer] dose of 800mg po qhs as tolerated / indicated. Hold Lexapro for now. He has not been consistently taking it. Increase Neurontin to 600mg po TID. Offer Zyprexa 10mg po BID PRN. Continue CIWA protocol w PRN Valium and PRN Clonidine. 07/21: Lidocaine patch daily. Medicine consult if [facility] is issued. 07/22: Medicine consult for chronic back pain management. Increase Seroquel to 500mg po qhs. D/c PRNMelatonin and replace w PRN Benadryl. 07/23: Increase Seroquel to 600mg po qhs. Per his request, change Flexeril 10mg from TID PRN to TID.Will avoid Requip for RLS as it could worsen his DC sxs. Instead, will increase Neurontin to 900mg po TID. Spiritual care consult ordered. 07/24: Advance Seroquel to 700mg po qhs. Add Trazodone 50mg po qhs + 50mg po qhs PRN. Changed Benadryl to PRN itching only as this could worsen RLS, if that is truly what he has. Will discuss the possibility of akathisia (vs RLS) tomorrow. 07/25: Increase Seroquel to his [employer] dose of 800mg po qhs. Add a 2nd Lidocaine patch. Maximize daily APAP dose by allowing a daily PRN dose to his TID scheduled APAP. Pain Management consult placed. Trial Cogentin 1mg po BID for possible akathisia. D/c PRN Benadryl as he has Trazodone available. D/c CIWA. 07/26: DC Cogentin, may consider non-cardioselective beta messi in place of Toprol (ie. Inderal) for better akathisia coverage if RLS symptoms do not improve with increased Gabapentin. 07/27: Desonide cream BID for dermatitis. 07/28: Scheduled Robaxin 750 mg hs per pt request. 07/29 -- : No change. 08/01: EKG 08/02 AM. Amitriptyline to 100 mg hs. 08/02-: No change 08/04: Consult Addiction medicine 08/05: Per addiction med Naltrexone 50 mg daily 08/06: No change 08/07: Recheck BMP in the AM 08/08: Labs reviewed. Creatinine elevated 1.24. Recheck BMP on 08/10. Discontinue Naltrexone and Motrin. 08/09: Resume APAP 1000mg po TID. 08/10: Add an additional Lidoderm for his neck. Increase Toprol XL to 50mg po qday. 08/11: No med changes. 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 08/13: No med changes. 08/14: D/c scheduled bedtime Zyprexa as it has not changed his sleep pattern. (Continue w PRN.) sCr remains mildly elevated. Avoid nephrotoxins. Discharge appointments needed: PCP, Pain Medicine, Addiction Medicine (if pt is willing) Milieu Management: Admit to: Medicine (IPF) >> NE4 Legal: >> >> SOC Acuity level: YELLOW Encouraged the patient to participate in unit activities. Level of Observation: No additional monitoring needed RE-CERTIFICATION & RISK ASSESSMENT The patient continues to need, on a daily basis, active inpatient psychiatric treatment for ongoingdiagnostic assessment and treatment of the following symptoms: AH, paranoia, substance withdrawal, and possible SI w possible SA prior to admission. The treatment can reasonably be expected to improve the patient's condition. Estimated length of stay is 30 days. Anticipated disposition: Y[facility]ME[facility] tx Risk Assessment: assault: Medium - paranoid Suicide Risk: Low Patient Strengths: willing to take medications This patient was also interviewed and examined by Dr. Crawley and the treatment plan was reviewed andagreed upon. Kristin Rutledge PA-C * Kristin Rutledge PA-C - 08/14/2023 2:21 PM CDT [facility] Psychiatry Progress Note PATIENT NAME: Nicanor Alvarado DATE OF SERVICE: 08/14/2023 ATTENDING PRACTITIONER: Kristin Rutledge PA-C HOSPITAL DAY # 25 CHIEF COMPLAINT subsequent inpatient psychiatric encounter INTERVAL HISTORY Nicanor Alvarado was seen in f/u by web content writer and MD. We discussed addition of scheduled Zyprexa at bedtime, starting last edil. He said it did not make a change in his sleep pattern. He took an additional Zyprexa PRN in the software performance engineer. He inquired about his most recent laboratory studies results. We discussed his continued mild elevation of sCr. He had several good questions about what would further harm his kidneys and what can be done to help heal his kidneys. He had questions about Thiamine, and we discussed the indication for that. He believes that persistent bubbles in the toilet afteryou pee is a sign of kidney deficiency. He subtly blames his need for a PPI on the medical community b/c he was forced to take Aleve b/c his provider wasn't gonna do anything else for me. He remains focused on restarting NSAIDs, sometimes Xanax, and especially Voltaren, noting, I have no choice! He poses different scenarios, wanting the recommendation that he wants to hear. Regardless, he s aid, about Voltaren, I'm gonna be on it, even if it reduces his life span. REVIEW OF SYSTEMS Constitutional: did not endorse physical health concerns aside from as discussed above + chronic back / neck pain Psychiatric: did not endorse thoughts of self harm, SI, HI, paranoia, AH, and/or VH Medication side effects: none endorsed CHART REVIEW & MULTIDISCIPLINARY TEAM MEETING Met with the multidisciplinary treatment team and discussed care and treatment planning. RN Report: Subjective: Will there still be meds that I can take when I wake up at night? Why don't I get Thiamine more than once a day? Objective: Tom has been visible on the unit most of edil, watching tv, social with select peers. He is talkative during 1:1, calm, pleasant. Denies SI, HI, hallucinations, pain. Talked about his kidneys, is hoping he can get more Thiamine while here, and also when DCed to treatment, to help improve his kidneys. Plans to stop drinking alcohol. Compliant with scheduled meds. Back and neck pain 07/15.Pain patches removed at , concerned that he wouldn't be able to apply those alone at home. He declined his skin cream. SW Report: reviewed and discussed Group attendance and participation: 06/10 OT PRN medications: reviewed MAR OBJECTIVE Hours of Sleep: Patient Vitals for the past 72 hrs: Sleep Hours 08/14/23 1500 0.5 HOURS 08/14/23 0629 6.3 HOURS 08/13/23 2243 1.3 HOURS 08/13/23 1426 1.3 HOURS 08/13/23 0615 7 HOURS 08/12/23 2239 1 HOURS 08/12/23 1439 0 HOURS 08/12/23 0615 7.3 HOURS 08/11/23 2220 1 HOURS LABS: No results found for this or any previous visit (from the past 24 hour(s)). Current Facility-Administered Medications Medication Dose Route Frequency acetaminophen (TYLENOL) tablet 1,000 mg 1,000 mg Oral DAILY PRN acetaminophen (TYLENOL) tablet 1,000 mg 1,000 mg Oral TID amitriptyline (ELAVIL) tablet 100 mg 100 mg Oral At Bedtime amLODIPine (NORVASC) tablet 5 mg 5 mg Oral Daily aspirin chewable tablet 81 mg 81 mg Oral Daily atorvastatin (LIPITOR) tablet 20 mg 20 mg Oral Evening senna (SENOKOT) tablet 2 Tablet 2 Tablet Oral BID PRN And polyethylene glycol (MIRALAX) oral powder 17 g 17 g Oral DAILY PRN And bisacodyl (DULCOLAX) rectal suppository 10 mg 10 mg Rectal DAILY PRN calcium carbonate (TUMS) chewable tablet 1,000 mg 1,000 mg Oral Q4H PRN desonide (DESOWEN) 0.05 % cream Topical BID diclofenac (VOLTAREN) gel 2 g 2 g Topical QID PRN diphenhydrAMINE (BENADRYL) capsule 50 mg 50 mg Oral At Bedtime diphenhydrAMINE (BENADRYL) capsule 50 mg 50 mg Oral DAILY PRN folic acid tablet 1 mg 1 mg Oral Daily gabapentin (NEURONTIN) capsule 1,200 mg 1,200 mg Oral TID lidocaine (ASPERCREAM) 4 % patch 1 Patch 1 Patch Transdermal Daily lidocaine (ASPERCREAM) 4 % patch 2 Patch 2 Patch Transdermal Daily lidocaine (XYLOCAINE) 5 % ointment Topical TID PRN methocarbamol (ROBAXIN) tablet 750 mg 750 mg Oral TID PRN methocarbamol (ROBAXIN) tablet 750 mg 750 mg Oral At Bedtime metoprolol succinate (TOPROL XL) extended release tablet 50 mg 50 mg Oral Daily nicotine (COMMIT) lozenge 2 mg 2 mg Oral Q1H PRN Or nicotine (NICORETTE) gum 2 mg 2 mg Oral Q1H PRN OLANZapine (ZyPREXA ZYDIS) disintegrating tablet 10 mg 10 mg Oral BID PRN OLANZapine (ZyPREXA) tablet 10 mg 10 mg Oral At Bedtime pantoprazole DR (PROTONIX) tablet 40 mg 40 mg Oral Daily at 6 am QUEtiapine (SEROquel) tablet 800 mg 800 mg Oral At Bedtime tamsulosin (FLOMAX) capsule 0.4 mg 0.4 mg Oral Daily after a meal thiamine (VITAMIN B-1) tablet 100 mg 100 mg Oral Daily Food intake: Amount of Diet Consumed (last 3 days) Date/Time Intake (%) 08/14/23 1200 100%;Lunch 08/14/23 0822 100%;Breakfast 08/13/23 1700 100%;Dinner 08/13/23 1148 100%;Lunch 08/13/23 0800 100%;Breakfast 08/12/23 1700 100%;Dinner 08/12/23 0812 100%;Breakfast 08/11/23 1713 100%;Dinner 08/11/23 1203 100%;Lunch 08/11/23 0830 100%;Breakfast ALLERGY Allergies Allergen Reactions Valproic Acid Other, see comments Excessive sedation Naltrexone Other, see comments Pt told RN he did not like it so he stopped taking it. MENTAL STATUS EXAM Filed Vitals: 08/12/23 1605 08/13/23 0800 08/13/23 1600 08/14/23 0800 BP: (!) 143/90 (!) 146/94 (!) 138/92 128/85 Pulse: 88 74 81 94 Resp: 16 16 18 16 Temp: 97.6 ??F (36.4 ??C) 98.3 ??F (36.8 ??C) 98.4 ??F (36.9 ??C) 97.7 ??F (36.5 ??C) TempSrc: Oral Skin Temporal Artery Oral SpO2: 97% 97% 98% 97% Weight: Height: Appearance: alert, intermittent eye contact, wearing scrubs, adequate grooming, appears older than stated age Behavior: engaged, less needy, less med seeking, externalizes blame, threatens to resume contraindicated rx after d/c Motor: less restless Gait and Station: wide-based, steady Speech: normal in rate, normal in volume, hyper-verbal / over-inclusive, less pressured Language: intact Thought process: largely linear although rambling Thought content: did not endorse thoughts of self harm, SI, HI, AH, and/or VH; no overt paranoid / delusional content offered; focused on sleep and pain Associations: grossly intact Mood: neutral Affect: anxious to neutral to intense Orientation: grossly oriented Attention: intact Insight: poor Judgment: poor CONSULTATION [facility], 07/24/23: Assessment / Recommendations Follow up on labs show creat 0.96, returned to normal range and resolved USAMA. K is 5.1 but sample hemolyzed. med consulted on 07/23/23 because of chronic back/neck/shoulder pain. To me, pt reports chronic low back, B/L hip, and shoulder pain. Frustrated that doctors will not prescribe him opioids, and that they recommend against diclofenac due to kidney issues. 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 In several studies, NSAIDshave shown to further increase the risk for thrombotic CV events as well as bleeding events. He is on ASA and addition of NSAID will increase risk of GI bleeding, as well. No current red flag symptoms for neck/back/shoulder pain, actually appears more controlled than previously per patient's report/chart review. Plan: - gabapentin has been helpful - continue 600 mg TID - lidocaine patch lower back has been helpful - continue daily; also offer additional lidocaine patch for neck or shoulder pain if pt desires - tylenol 650 mg prn changed to 1000 mg TID scheduled - diclofenac gel ordered instead to use topically as less systemic absorption - Given patient's chronic difficult to control pain and his h/o of self medicating with meds he buys off internet, I do think it is important to find a pain regimen that will control pt's chronic pain in a meaningful way so that he is less likely to use the internet to buy pills that are not prescribed to him - given it is the weekend, pain team is not available, but would consider primary team consult them and/or send OP referral to pain clinic for patient at hospital discharge. Pain team was consulted during a previous admission in May 2023, but he was not interested in any options other than opioids at that time. He did not ask me about opioids during our visit, so I believe he may nowbe open to more options, perhaps even intraarticular injections for shoulder/hip/back pain. med will sign off. Please reach out with any questions/concerns. Orin Nelson PA-C PAIN MANAGEMENT, 07/25: TREATMENT RECOMMENDATIONS/PLAN: Increase gabapentin to 1200mg TID Elavil 50mg QHS for sleep and nerve pain Change flexeril to robaxin 750 mg QID PRN NSAIDS could be considered in the future. Overall high risk patient with severe substance use disorder Will add non-opioid adjuvants. I did talk to him about suboxone; since he doesn't have opioid use disorder, this would not be my first preference. However, I would avoid pure opioid agonists at this time. ASSESSMENT AND RECOMMENDATIONS DISCUSSED WITH: Kristin Rutledge PA-C Thank you for consulting the Inpatient Pain Management Service. Please contact me with any questions or concerns. Aaron Galicia M.D. Addiction Medicine 08/09/23: ASSESSMENT/PLAN: 1. Alcohol use disorder, severe: Recent DUI. Patient is agreeable to treatment. States that he is on a stay of commitment. Challenged him to throw himself into his recovery. Discussed strategies for sobriety. Discussed the benefit of recovery meetings. Currently tolerating naltrexone but states he does not want to continue it. We will continue at discharge. 2. Methamphetamine/benzodiazepine use disorder: Discussed benefits of recovery meetings. Discussed benefits of 90 days of sobriety. Agrees to follow-up in my clinic. Bossman Franco MD CAM Alvarado is a 57 y.o. male who has been admitted to station [facility] for AH, paranoia, substance withdrawal, and possible [...] his room over the weekend. Admitted to [facility]: 07/20: Restless on exam. Reported +AH and +paranoia (under investigation - which he is starting toquestion as the truth). Less disorganized as compared to when on Medicine. He said he was not really sure about the events [employer]. He drinks alcohol heavily, nearly 3L of [place] rum per week. He has been prescribed Lexapro, but he is not consistent w taking it. Sometimes I need more, referring to self medicating. He used methamphetamine [employer]. He said he has +AH at his baseline, but while using methamphetamine, the +AH escalated and, it got bad. Someone could have . It all seemed so real. He said he began to think that he would be better off if he just used all of the methamph etamine, so he used some IV. His paranoia escalated and he began to feel like someone was going to come through his door, so I ate the rest of the bag b/c I thought I would need the rage and energy to fight them off. Guarded at times. Hesitantly, he denied having SI and he denied the [employer] event asa SA. 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 When initially in the ED, he reported +SI (also while on Medicine) and, when questioned about ingestion, he replied w not enough. Per chart review from the 05/2023 Medicine admission (admitted for erratic driving / legal blood draw, while in the ED he had a syncopal episode and required Medicine admission then transfer to [facility]): He reports that he had about 2 hospitalizations in the past month. One in [facility] (04/24/2022) for acute toxic encephalopathy, drug overdose (cannabinoids, methamphetamine), and alcohol withdrawal w/ delirium tremens which required large amount of benzo. He says he had another hospitalization in [place]. He reports that one of these hospitalizations led to ICU stay and he was told that his kidney were failing, but no detailed records of outside hospital stay are available on admission. 07/21: Restless, argumentative, anxious, irritable, and illogical. He is agreeable to YASMEEN tx, especially to access psychotherapy, knowing it will likely eventually be court ordered. However, he also stated that he has no intentions of quitting alcohol all together, but only cutting back, b/c of his chronic pain. Additionally, he is unwilling to stay in the hospital beyond his 72h hold, in order tofacilitate a door to door transfer to [facility]ME[facility] tx. He was educated on his risk of relapse and reminded of his recent hospitalizations, related to use / overdosing. Pt was reminded that he himself stated someone could have in relation to the events prior to this admission. He does not see his drinking as a problem, stating, I don't drive. Manager Convention noted that he recently missed a court date for aDUI charge and, last hospitalization here, he was brought here for a legal blood draw after being stopped for erratic driving. When asked about the pill bottles that were scattered around him, when found [employer], he could not give an explanation. Will file a petition for civil commitment. 07/22: Quite tense, irritable, and rude on approach. Said he wants to d/c directly to [facility] he suspects there must be a bench warrant issued for his arrest d/t missing a DUI court date a few weeks back. He slept better, but asked for PRN Benadryl instead of PRN Melatonin. Thought processwas linear. No overt paranoia. Reported +AH last edil. [facility]. 07/23: He is frustrated w not being able to access an opioid or Voltaren for his chronic pain. He has no insight into risk / benefit considerations. He is resistant to any treatment that takes more effort than popping a pill. He reluctantly agreed to a pain medicine consult. He was noted to be diaphoretic, but has not been scoring high enough on CIWA to warrant PRN BZD. He talked at length about his oldest son's by hanging and about how he has struggled in the aftermath and has failed to adequately support his second son over the years. His second son has attempted suicide numerous timesand is currently in [facility] tx. He added, I must before him. The pt talked about his hinduism bel iefs, about not believing in suicide, but having come to the conclusion that even someone who does not believe in suicide can get to the point of attempting suicide. He denied thoughts of self harm, SI, HI, and VH. He reported +AH and +tactile hallucinations >> hypnagogic-like. Affect was anxious, tense, and irritable. 07/24: No diaphoresis today. Using PRNs for sleep. Denied further AH, VH, or tactile hallucinations.(However, his report of hallucinations varies from person to person.) Agreeable to med trials for various concerns, but tends to want to immediately jump to large doses. Anxious, intense at times, and restless. Thought process is largely linear. Denied SI / HI. He mentioned this hospitalization as the 4th time he's been in the ICU in as many months. 07/25: More elevated, animated, intense, and irritable. Continues restless. Med seeking - more of (to include opioids, BZD, and now stimulants, but also other more benign meds) - and wanting to go straight to high doses. He is a very inconsistent historian w details changing from day to day, person to person. Memory impairment is noted. He noted that he did not trash his kidneys as badly prior to this admission as compared to his other 3 recent admissions. He minimized the significance of his past renal injury and dismissed the warnings he has received by healthcare professionals re the risks to his vital organs. He called them over-dramatic. Denied AH / SI. +Paranoia re demons? Hyper-verbal. 07/26: Continued fixation on medications, feels he is in need of something additional for both pain and sleep -- pt offers diclofenac and Xanax as effective interventions, but understanding when web content writer offered renal concerns with diclofenac and habit-forming tendencies with Xanax. Pt hopeful for Benadryl for sleep which was agreed upon. Discussed Gabapentin additionally as options for both pain, sleep and RLS. 07/27: Less intense, irritable than yesterday and reporting sufficient sleep for the first time in years. Generally fixated on pain, medication options in case things fail down the road during current hospitalization. Apart from this, pt occasionally offers comments about how Xanax and opiate medications would simplify my long med list, but redirectable. 07/28: Largely unchanged, though briefly frustrated with not having Robaxin scheduled. Will do so moving forward per his request. Feels ready for CD referrals, aware that final commitment hearing is not until next week. 07/29: Planning out possible medication changes on a daily basis, frequently asks what next step is if certain medications do not work for him long-term, additionally routes interview back to discussion of pain/diclofenac several times throughout interaction. Very focused on medication regimen schedule. 07/30: Continued fixation on possible medication options moving forward, today mostly surrounding safety profile of medications with alcohol use. Additionally reported voices over the last couple of days, previously withheld from treatment team as he thought this would result in Seroquel being takenaway. 07/31: Unchanged; required. Fran last night for sleep, had difficulty sleeping through the night for 1st time in several days. Agreed to keep medications as are for now, revisit sleep augmentation if issues persist. Otherwise, no changes. 08/01: Persistent request to have suicidal ideation/status clarified by current team, fearful of having this label carried over into time at treatment. Otherwise, reported worse sleep for the past twodays and would appreciate increase in amitriptyline which web content writer agreed to. 08/02: Pt calm, cooperative and medication compliant. Denies psych symptoms. He reports being in agreement with need for CD treatment but argues 3 months is too long as he is the primary provider for his adult son who also struggles with alcohol use/abuse. Discussed benefits for in-patient and hopefully pt will be able to help his son through addiction but the pt argues other james. He believes hisproblem is not meth rather alcohol and he can limit himself. Pt is argumentative and has no insighton dangerous behaviors poses increased risk. Reports adequate sleep since admission. 08/03: Stressed, anxious about court hearing tomorrow. Anticipates he will be committed but does notlike the language as it seems forceful rather then voluntary. Discussed CD tx options and support systems as he work to archived sobriety. Motivated to seek help so as to help his son. Report good sleep the past nights. Requested his records be doctored for suicide because he was never suicidal and does not want belongings taken away when he gets to treatment. 08/04: Mixed of emotions today. Pt had courts earlier today and is excited he was given a SOC as it gives him more options and means of helping his son as well. Pt continued to express committment to CD treatment. He hopes he and son can team up and do AA together. Reports adequate sleep at night. Denies psych symptoms. Re-consulted addiction medicine as the pt is more open to discussion/medication assisted treatment. 08/05: Improved mood. Pt is more open-minded to recommendations regarding treatment. He reports improve sleep on current regimen. He hoes that continues. Discussed sleep hygiene, recommended CBT-I forongoing insomnia. 08/06: Continue to have good sleep. Remains committed to CD tx and then AA but opposed to MAT. Pt wasseen by Addiction med and he was started on Naltrexone. Pt is refusing med stating he does not need it. He is minimizing his alcohol and stating he can self limit his alcohol usage. Shows limited insight into his addiction. Using Zyprexa PRN almost every night to resume sleep which has been effective. Will continue to evaluate the need for scheduled Zyprexa as pt denies psych symptoms. Pt was seen by spiritual care and that has helped improved his mood. 08/07: Pt is feeling sore but otherwise good. Reports adequate sleep despite some interruption during the night. Pt requesting diclofenac oral instead of the gel for chronic pain. Chart review showedconsult from pain med and med hold off on diclofenac due to concerns for kidney issues however creatinine (07/22 was 0.96) has normalized. Will reach out to pain management to see if it is appropriate to add diclofenac and d/c motrin due to significant chronic pain history. Pt case is challengingas he is determined to resolve to getting his meds from online sources. 08/08: Calm and cooperative. Refused Naltrxone so it was discontinued. Lab draw showed elevated creatinine levels of 1.24. Will plan to repeat lab on 08/10. Remains fixated on pain management. 08/09: Pt reported currently getting decent sleep. He perseverated on pain control and on getting either Ibu or Voltaren prescribed again. He has no insight into the risk of renal insult. He suggested being prescribed a little bit of an opioid to have on hand when things get really bad. Nothingoutside of a pill is doable after d/c. Pt lacks accountability for his past behaviors and use andthe resulting consequences. Referral to [place]. Speech is hyper- verbal / over-inclusive and somewhat pressured. He is less restless. No overt paranoia. 08/10: Good participation in OT groups. Overnight sleep was better than usual. (Nearly 8h documented.) He is hopeful for Y[facility]MEEN tx at [place]. Per his usual, seemingly in hopes of getting a prescription, he added a veiled threat to use NSAIDs and/or opioids on his own after d/c, feeling he has no other choice. No insight into his kidney health or addiction. I'd rather my kidneys fail than live inpain. 08/11: Less restless. Less med seeking. Reported very acceptable sleep and improved pain control. Denied further paranoia or AH (as reported during initial part of hospitalization). Eager for YASMEEN tx.He became emotional when speaking about his mother and son. Pt was able to verbalize his positive reasons (mostly family related) for staying sober. He looks forward to my kidneys healing so that he can resume Voltaren. 08/12: Good OT attendance. Pt reported last night's sleep to be pretty good, but as usual, he did wake and take PRNs (for sleep and pain). Despite acknowledging that his pain control is reasonable atpresent, he perseverates on what might happen once he returns home after treatment, becoming irritable and intense. He says topicals will not be suitable. He again made what seem like threats to go back to using Voltaren (and Xanax) even if it means taking 10 years off the top of my life. 08/13: Visible in the milieu. Adequate sleep, although he does wake and get PRNs, usually around ~2a.At length, we discussed his kidney health, avoiding nephrotoxins, and maintaining adequate hydration. He remains focused on restarting NSAIDs, sometimes Xanax, and especially Voltaren, noting, I have no choice! He poses different scenarios, wanting the recommendation that he wants to hear. DIAGNOSES & PLAN Principal Psychiatric / Substance Use Diagnoses: - encephalopathy s/p ingestion: improved - bipolar disorder w psychosis vs SCAD by hx - r/o substance induced psychosis - alcohol use disorder, severe - methamphetamine use disorder, severe - BZD use disorder, severe - alcohol / BZD withdrawal Medical Concerns to be addressed: - USAMA: sCr again elevated after recent NSAID use - ?element of CKD? - mild rhabdomyolysis: improved - chronic back pain: see Medicine / Pain consult - HTN: norvasc, increased toprol xl - GERD: restarted PPI - HLD: restarted statin - LUTS: flomax - Patient with moderate malnutrition in the context of social/environmental circumstances during hospital stay and remains with no acute or chronic nutrition problems at this time. Patient requiring additional resources due to degree of malnutrition during hospital stay. Dietitian following with the following nutrition therapy plan: 1.) Ok to continue boost TID 2.) RDN to sign off, please consult as needed Medication Ordered/Consults/Labs/Tests Ordered: 07/18: Delirium precautions ordered. Seroquel ordered 100 mg QHS and 50 mg q4PRN. Zyprexa 5 PO mg vs10 mg IV - TID PRN if needed. UDS ordered. Will order high dosed Thiamine. Will order addiction consult. Gabapentin 300 mg TID ordered for withdrawal symptoms. 07/19: Increase quetiapine to 100mg TID. [employer] dose was 800mg qHS. UDS+ for amphetamines. 07/20: Will give Seroquel 200mg at bedtime this edil then combine doses / change dose to 400mg po qhs. Will titrate to [employer] dose of 800mg po qhs as tolerated / indicated. Hold Lexapro for now. He has not been consistently taking it. Increase Neurontin to 600mg po TID. Offer Zyprexa 10mg po BID PRN. Continue CIWA protocol w PRN Valium and PRN Clonidine. 07/21: Lidocaine patch daily. Medicine consult if [facility] is issued. 07/22: Medicine consult for chronic back pain management. Increase Seroquel to 500mg po qhs. D/c PRNMelatonin and replace w PRN Benadryl. 07/23: Increase Seroquel to 600mg po qhs. Per his request, change Flexeril 10mg from TID PRN to TID.Will avoid Requip for RLS as it could worsen his DC sxs. Instead, will increase Neurontin to 900mg po TID. Spiritual care consult ordered. 07/24: Advance Seroquel to 700mg po qhs. Add Trazodone 50mg po qhs + 50mg po qhs PRN. Changed Benadryl to PRN itching only as this could worsen RLS, if that is truly what he has. Will discuss the possibility of akathisia (vs RLS) tomorrow. 07/25: Increase Seroquel to his [employer] dose of 800mg po qhs. Add a 2nd Lidocaine patch. Maximize daily APAP dose by allowing a daily PRN dose to his TID scheduled APAP. Pain Management consult placed. Trial Cogentin 1mg po BID for possible akathisia. D/c PRN Benadryl as he has Trazodone available. D/c CIWA. 07/26: MONTEZ Burr, may consider non-cardioselective beta messi in place of Toprol (ie. Inderal) for better akathisia coverage if RLS symptoms do not improve with increased Gabapentin. 07/27: Desonide cream BID for dermatitis. 07/28: Scheduled Robaxin 750 mg hs per pt request. 07/29 -- : No change. 08/01: EKG 08/02 AM. Amitriptyline to 100 mg hs. 08/02-: No change 08/04: Consult Addiction medicine 08/05: Per addiction med Naltrexone 50 mg daily 08/06: No change 08/07: Recheck BMP in the AM 08/08: Labs reviewed. Creatinine elevated 1.24. Recheck BMP on 08/10. Discontinue Naltrexone and Motrin. 08/09: Resume APAP 1000mg po TID. 08/10: Add an additional Lidoderm for his neck. Increase Toprol XL to 50mg po qday. 08/11: No med changes. 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 08/13: No changes. sCr remains mildly elevated. Avoid nephrotoxins. Discharge appointments needed: PCP, Pain Medicine, Addiction Medicine (if pt is willing) Milieu Management: Admit to: Medicine (IPF) >> NE4 Legal: >> >> SOC Acuity level: YELLOW Encouraged the patient to participate in unit activities. Level of Observation: No additional monitoring needed RE-CERTIFICATION & RISK ASSESSMENT The patient continues to need, on a daily basis, active inpatient psychiatric treatment for ongoingdiagnostic assessment and treatment of the following symptoms: AH, paranoia, substance withdrawal, and possible SI w possible SA prior to admission. The treatment can reasonably be expected to improve the patient's condition. Estimated length of stay is 30 days. Anticipated disposition: [facility] tx Risk Assessment: assault: Medium - paranoid Suicide Risk: Low Patient Strengths: willing to take medications Kristin Rutledge PA-C * Kristin Rutledge PA-C - 08/13/2023 2:55 PM CDT [facility] Psychiatry Progress Note PATIENT NAME: Nicanor Alvarado DATE OF SERVICE: 08/13/2023 ATTENDING PRACTITIONER: Kristin Rutledge PA-C HOSPITAL DAY # 24 CHIEF COMPLAINT subsequent inpatient psychiatric encounter INTERVAL HISTORY Nicanor Alvarado was seen in f/u by web content writer and CONCRETE ENGINEERING TECHNICIAN-fellow. Pt reported last night's sleep to be pretty good, but as usual, he did wake and take PRNs (for sleep and pain). He also reported that he is a hot sleeper. We did some troubleshooting, to include adding an extra blanket beneath his sheet and pillow case for an additional layer between him and the plastic coverings. We also decided to schedule Zyprexa at bedtime given he is taking it each night / software performance engineer as a PRN. He again talked about pain control, becoming irritable and intense. Despite acknowledging that his pain control is reasonable at present, he perseverates on what might happen once he returns home after treatment. He s ays topicals will not be suitable. He again made what seem like threats to go back to using Voltaren (and Xanax) even if it means taking 10 years off the top of my life. We discussed [facility] tx referrals. REVIEW OF SYSTEMS Constitutional: did not endorse physical health concerns aside from as discussed above + chronic back / neck pain Psychiatric: did not endorse thoughts of self harm, SI, HI, paranoia, AH, and/or VH Medication side effects: dry mouth CHART REVIEW & MULTIDISCIPLINARY TEAM MEETING Met with the multidisciplinary treatment team and discussed care and treatment planning. RN Report: Subjective: I want robaxin later I have PRN Objective: Pt is behaviorally controlled. Med complaint. Patient denies visual hallucinations, auditory hallucinations, suicidal ideation, homicidal ideation. Calm and cooperative. No aggressive behavior. SW Report: reviewed and discussed Group attendance and participation: 06/09 OT PRN medications: reviewed MAR OBJECTIVE Hours of Sleep: Patient Vitals for the past 72 hrs: Sleep Hours 08/13/23 1426 1.3 HOURS 08/13/23 0615 7 HOURS 08/12/23 2239 1 HOURS 08/12/23 1439 0 HOURS 08/12/23 0615 7.3 HOURS 08/11/23 2220 1 HOURS 08/11/23 1508 0 HOURS 08/11/23 0615 7.8 HOURS 08/10/23 2200 0.8 HOURS 08/10/23 1500 0.3 HOURS LABS: No results found for this or any previous visit (from the past 24 hour(s)). Current Facility-Administered Medications Medication Dose Route Frequency acetaminophen (TYLENOL) tablet 1,000 mg 1,000 mg Oral DAILY PRN acetaminophen (TYLENOL) tablet 1,000 mg 1,000 mg Oral TID amitriptyline (ELAVIL) tablet 100 mg 100 mg Oral At Bedtime amLODIPine (NORVASC) tablet 5 mg 5 mg Oral Daily aspirin chewable tablet 81 mg 81 mg Oral Daily atorvastatin (LIPITOR) tablet 20 mg 20 mg Oral Evening senna (SENOKOT) tablet 2 Tablet 2 Tablet Oral BID PRN And polyethylene glycol (MIRALAX) oral powder 17 g 17 g Oral DAILY PRN And bisacodyl (DULCOLAX) rectal suppository 10 mg 10 mg Rectal DAILY PRN calcium carbonate (TUMS) chewable tablet 1,000 mg 1,000 mg Oral Q4H PRN desonide (DESOWEN) 0.05 % cream Topical BID diclofenac (VOLTAREN) gel 2 g 2 g Topical QID PRN diphenhydrAMINE (BENADRYL) capsule 50 mg 50 mg Oral At Bedtime diphenhydrAMINE (BENADRYL) capsule 50 mg 50 mg Oral DAILY PRN folic acid tablet 1 mg 1 mg Oral Daily gabapentin (NEURONTIN) capsule 1,200 mg 1,200 mg Oral TID lidocaine (ASPERCREAM) 4 % patch 1 Patch 1 Patch Transdermal Daily lidocaine (ASPERCREAM) 4 % patch 2 Patch 2 Patch Transdermal Daily lidocaine (XYLOCAINE) 5 % ointment Topical TID PRN methocarbamol (ROBAXIN) tablet 750 mg 750 mg Oral TID PRN methocarbamol (ROBAXIN) tablet 750 mg 750 mg Oral At Bedtime metoprolol succinate (TOPROL XL) extended release tablet 50 mg 50 mg Oral Daily nicotine (COMMIT) lozenge 2 mg 2 mg Oral Q1H PRN Or nicotine (NICORETTE) gum 2 mg 2 mg Oral Q1H PRN OLANZapine (ZyPREXA ZYDIS) disintegrating tablet 10 mg 10 mg Oral BID PRN OLANZapine (ZyPREXA) tablet 10 mg 10 mg Oral At Bedtime pantoprazole DR (PROTONIX) tablet 40 mg 40 mg Oral Daily at 6 am QUEtiapine (SEROquel) tablet 800 mg 800 mg Oral At Bedtime tamsulosin (FLOMAX) capsule 0.4 mg 0.4 mg Oral Daily after a meal thiamine (VITAMIN B-1) tablet 100 mg 100 mg Oral Daily Food intake: Amount of Diet Consumed (last 3 days) Date/Time Intake (%) 08/13/23 1148 100%;Lunch 08/13/23 0800 100%;Breakfast 08/12/23 1700 100%;Dinner 08/12/23 0812 100%;Breakfast 08/11/23 1713 100%;Dinner 08/11/23 1203 100%;Lunch 08/11/23 0830 100%;Breakfast 08/10/23 1729 100%;Dinner 08/10/23 1200 100%;Lunch 08/10/23 0818 100%;Breakfast ALLERGY Allergies Allergen Reactions Valproic Acid Other, see comments Excessive sedation Naltrexone Other, see comments Pt told RN he did not like it so he stopped taking it. MENTAL STATUS EXAM Filed Vitals: 08/12/23 1200 08/12/23 1428 08/12/23 1605 08/13/23 0800 BP: (!) 157/92 (!) 147/86 (!) 143/90 (!) 146/94 Pulse: 88 74 Resp: 16 16 Temp: 97.6 ??F (36.4 ??C) 98.3 ??F (36.8 ??C) TempSrc: Oral Skin SpO2: 97% 97% Weight: Height: Appearance: alert, intermittent eye contact, wearing scrubs, adequate grooming, appears older than stated age Behavior: engaged, needy, less med seeking, threatens to resume contraindicated rx after d/c Motor: less restless Gait and Station: wide-based, steady Speech: normal in rate, normal in volume, hyper-verbal / over-inclusive, less pressured Language: intact Thought process: largely linear although rambling Thought content: did not endorse thoughts of self harm, SI, HI, AH, and/or VH; no overt paranoid / delusional content offered; focused on sleep and pain Associations: grossly intact Mood: neutral Affect: anxious to neutral to intense to irritable Orientation: grossly oriented Attention: intact Insight: poor Judgment: poor CONSULTATION [facility], 07/24/23: Assessment / Recommendations Follow up on labs show creat 0.96, returned to normal range and resolved USAMA. K is 5.1 but sample hemolyzed. med consulted on 07/23/23 because of chronic back/neck/shoulder pain. To me, pt reports chronic low back, B/L hip, and shoulder pain. Frustrated that doctors will not prescribe him opioids, and that they recommend against diclofenac due to kidney issues. 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 In several studies, NSAIDshave shown to further increase the risk for thrombotic CV events as well as bleeding events. He is on ASA and addition of NSAID will increase risk of GI bleeding, as well. No current red flag symptoms for neck/back/shoulder pain, actually appears more controlled than previously per patient's report/chart review. Plan: - gabapentin has been helpful - continue 600 mg TID - lidocaine patch lower back has been helpful - continue daily; also offer additional lidocaine patch for neck or shoulder pain if pt desires - tylenol 650 mg prn changed to 1000 mg TID scheduled - diclofenac gel ordered instead to use topically as less systemic absorption - Given patient's chronic difficult to control pain and his h/o of self medicating with meds he buys off internet, I do think it is important to find a pain regimen that will control pt's chronic pain in a meaningful way so that he is less likely to use the internet to buy pills that are not prescribed to him - given it is the weekend, pain team is not available, but would consider primary team consult them and/or send OP referral to pain clinic for patient at hospital discharge. Pain team was consulted during a previous admission in May 2023, but he was not interested in any options other than opioids at that time. He did not ask me about opioids during our visit, so I believe he may nowbe open to more options, perhaps even intraarticular injections for shoulder/hip/back pain. med will sign off. Please reach out with any questions/concerns. Orin Nelson PA-C PAIN MANAGEMENT, 07/25: TREATMENT RECOMMENDATIONS/PLAN: Increase gabapentin to 1200mg TID Elavil 50mg QHS for sleep and nerve pain Change flexeril to robaxin 750 mg QID PRN NSAIDS could be considered in the future. Overall high risk patient with severe substance use disorder Will add non-opioid adjuvants. I did talk to him about suboxone; since he doesn't have opioid use disorder, this would not be my first preference. However, I would avoid pure opioid agonists at this time. ASSESSMENT AND RECOMMENDATIONS DISCUSSED WITH: Kristin Rutledge PA-C Thank you for consulting the Inpatient Pain Management Service. Please contact me with any questions or concerns. Aaron Galicia M.D. Addiction Medicine 08/09/23: ASSESSMENT/PLAN: 1. Alcohol use disorder, severe: Recent DUI. Patient is agreeable to treatment. States that he is on a stay of commitment. Challenged him to throw himself into his recovery. Discussed strategies for sobriety. Discussed the benefit of recovery meetings. Currently tolerating naltrexone but states he does not want to continue it. We will continue at discharge. 2. Methamphetamine/benzodiazepine use disorder: Discussed benefits of recovery meetings. Discussed benefits of 90 days of sobriety. Agrees to follow-up in my clinic. Bossman Franco MD CAM Alvarado is a 57 y.o. male who has been admitted to station [facility] for AH, paranoia, substance withdrawal, and possible [...] his room over the weekend. Admitted to [facility]: 07/20: Restless on exam. Reported +AH and +paranoia (under investigation - which he is starting toquestion as the truth). Less disorganized as compared to when on Medicine. He said he was not really sure about the events [employer]. He drinks alcohol heavily, nearly 3L of [place] rum per week. He has been prescribed Lexapro, but he is not consistent w taking it. Sometimes I need more, referring to self medicating. He used methamphetamine [employer]. He said he has +AH at his baseline, but while using methamphetamine, the +AH escalated and, it got bad. Someone could have . It all seemed so real. He said he began to think that he would be better off if he just used all of the methamph etamine, so he used some IV. His paranoia escalated and he began to feel like someone was going to come through his door, so I ate the rest of the bag b/c I thought I would need the rage and energy to fight them off. Guarded at times. Hesitantly, he denied having SI and he denied the [employer] event asa SA. 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 When initially in the ED, he reported +SI (also while on Medicine) and, when questioned about ingestion, he replied w not enough. Per chart review from the 05/2023 Medicine admission (admitted for erratic driving / legal blood draw, while in the ED he had a syncopal episode and required Medicine admission then transfer to [facility]): He reports that he had about 2 hospitalizations in the past month. One in [facility] (04/24/2022) for acute toxic encephalopathy, drug overdose (cannabinoids, methamphetamine), and alcohol withdrawal w/ delirium tremens which required large amount of benzo. He says he had another hospitalization in [place]. He reports that one of these hospitalizations led to ICU stay and he was told that his kidney were failing, but no detailed records of outside hospital stay are available on admission. 07/21: Restless, argumentative, anxious, irritable, and illogical. He is agreeable to [facility]ME[facility] tx, especially to access psychotherapy, knowing it will likely eventually be court ordered. However, he also stated that he has no intentions of quitting alcohol all together, but only cutting back, b/c of his chronic pain. Additionally, he is unwilling to stay in the hospital beyond his 72h hold, in order tofacilitate a door to door transfer to [facility] tx. He was educated on his risk of relapse and reminded of his recent hospitalizations, related to use / overdosing. Pt was reminded that he himself stated someone could have in relation to the events prior to this admission. He does not see his drinking as a problem, stating, I don't drive. Manager Convention noted that he recently missed a court date for aDUI charge and, last hospitalization here, he was brought here for a legal blood draw after being stopped for erratic driving. When asked about the pill bottles that were scattered around him, when found [employer], he could not give an explanation. Will file a petition for civil commitment. 07/22: Quite tense, irritable, and rude on approach. Said he wants to d/c directly to [facility] he suspects there must be a bench warrant issued for his arrest d/t missing a DUI court date a few weeks back. He slept better, but asked for PRN Benadryl instead of PRN Melatonin. Thought processwas linear. No overt paranoia. Reported +AH last edil. [facility] is supporting petition for commitment. 07/23: He is frustrated w not being able to access an opioid or Voltaren for his chronic pain. He has no insight into risk / benefit considerations. He is resistant to any treatment that takes more effort than popping a pill. He reluctantly agreed to a pain medicine consult. He was noted to be diaphoretic, but has not been scoring high enough on CIWA to warrant PRN BZD. He talked at length about his oldest son's by hanging and about how he has struggled in the aftermath and has failed to adequately support his second son over the years. His second son has attempted suicide numerous timesand is currently in [facility] tx. He added, I must before him. The pt talked about his hinduism bel iefs, about not believing in suicide, but having come to the conclusion that even someone who does not believe in suicide can get to the point of attempting suicide. He denied thoughts of self harm, SI, HI, and VH. He reported +AH and +tactile hallucinations >> hypnagogic-like. Affect was anxious, tense, and irritable. 07/24: No diaphoresis today. Using PRNs for sleep. Denied further AH, VH, or tactile hallucinations.(However, his report of hallucinations varies from person to person.) Agreeable to med trials for various concerns, but tends to want to immediately jump to large doses. Anxious, intense at times, and restless. Thought process is largely linear. Denied SI / HI. He mentioned this hospitalization as the 4th time he's been in the ICU in as many months. 07/25: More elevated, animated, intense, and irritable. Continues restless. Med seeking - more of (to include opioids, BZD, and now stimulants, but also other more benign meds) - and wanting to go straight to high doses. He is a very inconsistent historian w details changing from day to day, person to person. Memory impairment is noted. He noted that he did not trash his kidneys as badly prior to this admission as compared to his other 3 recent admissions. He minimized the significance of his past renal injury and dismissed the warnings he has received by healthcare professionals re the risks to his vital organs. He called them over-dramatic. Denied AH / SI. +Paranoia re demons? Hyper-verbal. 07/26: Continued fixation on medications, feels he is in need of something additional for both pain and sleep -- pt offers diclofenac and Xanax as effective interventions, but understanding when web content writer offered renal concerns with diclofenac and habit-forming tendencies with Xanax. Pt hopeful for Benadryl for sleep which was agreed upon. Discussed Gabapentin additionally as options for both pain, sleep and RLS. 07/27: Less intense, irritable than yesterday and reporting sufficient sleep for the first time in years. Generally fixated on pain, medication options in case things fail down the road during current hospitalization. Apart from this, pt occasionally offers comments about how Xanax and opiate medications would simplify my long med list, but redirectable. 07/28: Largely unchanged, though briefly frustrated with not having Robaxin scheduled. Will do so moving forward per his request. Feels ready for CD referrals, aware that final commitment hearing is not until next week. 07/29: Planning out possible medication changes on a daily basis, frequently asks what next step is if certain medications do not work for him long-term, additionally routes interview back to discussion of pain/diclofenac several times throughout interaction. Very focused on medication regimen schedule. 07/30: Continued fixation on possible medication options moving forward, today mostly surrounding safety profile of medications with alcohol use. Additionally reported voices over the last couple of days, previously withheld from treatment team as he thought this would result in Seroquel being takenaway. 07/31: Unchanged; required. Alexisaxin last night for sleep, had difficulty sleeping through the night for 1st time in several days. Agreed to keep medications as are for now, revisit sleep augmentation if issues persist. Otherwise, no changes. 08/01: Persistent request to have suicidal ideation/status clarified by current team, fearful of having this label carried over into time at treatment. Otherwise, reported worse sleep for the past twodays and would appreciate increase in amitriptyline which web content writer agreed to. 08/02: Pt calm, cooperative and medication compliant. Denies psych symptoms. He reports being in agreement with need for CD treatment but argues 3 months is too long as he is the primary provider for his adult son who also struggles with alcohol use/abuse. Discussed benefits for in-patient and hopefully pt will be able to help his son through addiction but the pt argues other james. He believes hisproblem is not meth rather alcohol and he can limit himself. Pt is argumentative and has no insighton dangerous behaviors poses increased risk. Reports adequate sleep since admission. 08/03: Stressed, anxious about court hearing tomorrow. Anticipates he will be committed but does notlike the language as it seems forceful rather then voluntary. Discussed CD tx options and support systems as he work to archived sobriety. Motivated to seek help so as to help his son. Report good sleep the past nights. Requested his records be doctored for suicide because he was never suicidal and does not want belongings taken away when he gets to treatment. 08/04: Mixed of emotions today. Pt had courts earlier today and is excited he was given a SOC as it gives him more options and means of helping his son as well. Pt continued to express committment to CD treatment. He hopes he and son can team up and do AA together. Reports adequate sleep at night. Denies psych symptoms. Re-consulted addiction medicine as the pt is more open to discussion/medication assisted treatment. 08/05: Improved mood. Pt is more open-minded to recommendations regarding treatment. He reports improve sleep on current regimen. He hoes that continues. Discussed sleep hygiene, recommended CBT-I forongoing insomnia. 08/06: Continue to have good sleep. Remains committed to CD tx and then AA but opposed to MAT. Pt wasseen by Addiction med and he was started on Naltrexone. Pt is refusing med stating he does not need it. He is minimizing his alcohol and stating he can self limit his alcohol usage. Shows limited insight into his addiction. Using Zyprexa PRN almost every night to resume sleep which has been effective. Will continue to evaluate the need for scheduled Zyprexa as pt denies psych symptoms. Pt was seen by spiritual care and that has helped improved his mood. 08/07: Pt is feeling sore but otherwise good. Reports adequate sleep despite some interruption during the night. Pt requesting diclofenac oral instead of the gel for chronic pain. Chart review showedconsult from pain med and med hold off on diclofenac due to concerns for kidney issues however creatinine (07/22 was 0.96) has normalized. Will reach out to pain management to see if it is appropriate to add diclofenac and d/c motrin due to significant chronic pain history. Pt case is challengingas he is determined to resolve to getting his meds from online sources. 08/08: Calm and cooperative. Refused Naltrxone so it was discontinued. Lab draw showed elevated creatinine levels of 1.24. Will plan to repeat lab on 08/10. Remains fixated on pain management. 08/09: Pt reported currently getting decent sleep. He perseverated on pain control and on getting either Ibu or Voltaren prescribed again. He has no insight into the risk of renal insult. He suggested being prescribed a little bit of an opioid to have on hand when things get really bad. Nothingoutside of a pill is doable after d/c. Pt lacks accountability for his past behaviors and use andthe resulting consequences. Referral to [place]. Speech is hyper- verbal / over-inclusive and somewhat pressured. He is less restless. No overt paranoia. 08/10: Good participation in OT groups. Overnight sleep was better than usual. (Nearly 8h documented.) He is hopeful for [facility] tx at [place]. Per his usual, seemingly in hopes of getting a prescription, he added a veiled threat to use NSAIDs and/or opioids on his own after d/c, feeling he has no other choice. No insight into his kidney health or addiction. I'd rather my kidneys fail than live inpain. 08/11: Less restless. Less med seeking. Reported very acceptable sleep and improved pain control. Denied further paranoia or AH (as reported during initial part of hospitalization). Eager for YASMEEN tx.He became emotional when speaking about his mother and son. Pt was able to verbalize his positive reasons (mostly family related) for staying sober. He looks forward to my kidneys healing so that he can resume Voltaren. 08/12: Good OT attendance. Pt reported last night's sleep to be pretty good, but as usual, he did wake and take PRNs (for sleep and pain). Despite acknowledging that his pain control is reasonable atpresent, he perseverates on what might happen once he returns home after treatment, becoming irritable and intense. He says topicals will not be suitable. He again made what seem like threats to go back to using Voltaren (and Xanax) even if it means taking 10 years off the top of my life. DIAGNOSES & PLAN Principal Psychiatric / Substance Use Diagnoses: - encephalopathy s/p ingestion: improved - bipolar disorder w psychosis vs SCAD by hx - r/o substance induced psychosis - alcohol use disorder, severe - methamphetamine use disorder, severe - BZD use disorder, severe - alcohol / BZD withdrawal Medical Concerns to be addressed: - USAMA: sCr again elevated after recent NSAID use - ?element of CKD? - mild rhabdomyolysis: improved - chronic back pain: see Medicine / Pain consult - HTN: norvasc, increased toprol xl - GERD: restarted PPI - HLD: restarted statin - LUTS: flomax - Patient with moderate malnutrition in the context of social/environmental circumstances during hospital stay and remains with no acute or chronic nutrition problems at this time. Patient requiring additional resources due to degree of malnutrition during hospital stay. Dietitian following with the following nutrition therapy plan: 1.) Ok to continue boost TID 2.) RDN to sign off, please consult as needed Medication Ordered/Consults/Labs/Tests Ordered: 07/18: Delirium precautions ordered. Seroquel ordered 100 mg QHS and 50 mg q4PRN. Zyprexa 5 PO mg vs10 mg IV - TID PRN if needed. UDS ordered. Will order high dosed Thiamine. Will order addiction consult. Gabapentin 300 mg TID ordered for withdrawal symptoms. 07/19: Increase quetiapine to 100mg TID. [employer] dose was 800mg qHS. UDS+ for amphetamines. 07/20: Will give Seroquel 200mg at bedtime this edil then combine doses / change dose to 400mg po qhs. Will titrate to [employer] dose of 800mg po qhs as tolerated / indicated. Hold Lexapro for now. He has not been consistently taking it. Increase Neurontin to 600mg po TID. Offer Zyprexa 10mg po BID PRN. Continue CIWA protocol w PRN Valium and PRN Clonidine. 07/21: Lidocaine patch daily. Medicine consult if [facility] is issued. 07/22: Medicine consult for chronic back pain management. Increase Seroquel to 500mg po qhs. D/c PRNMelatonin and replace w PRN Benadryl. 07/23: Increase Seroquel to 600mg po qhs. Per his request, change Flexeril 10mg from TID PRN to TID.Will avoid Requip for RLS as it could worsen his DC sxs. Instead, will increase Neurontin to 900mg po TID. Spiritual care consult ordered. 07/24: Advance Seroquel to 700mg po qhs. Add Trazodone 50mg po qhs + 50mg po qhs PRN. Changed Benadryl to PRN itching only as this could worsen RLS, if that is truly what he has. Will discuss the possibility of akathisia (vs RLS) tomorrow. 07/25: Increase Seroquel to his [employer] dose of 800mg po qhs. Add a 2nd Lidocaine patch. Maximize daily APAP dose by allowing a daily PRN dose to his TID scheduled APAP. Pain Management consult placed. Trial Cogentin 1mg po BID for possible akathisia. D/c PRN Benadryl as he has Trazodone available. D/c CIWA. 07/26: MONTEZ Burr, may consider non-cardioselective beta messi in place of Toprol (ie. Inderal) for better akathisia coverage if RLS symptoms do not improve with increased Gabapentin. 07/27: Desonide cream BID for dermatitis. 07/28: Scheduled Robaxin 750 mg hs per pt request. 07/29 -- : No change. 08/01: EKG 08/02 AM. Amitriptyline to 100 mg hs. 08/02-: No change 08/04: Consult Addiction medicine 08/05: Per addiction med Naltrexone 50 mg daily 08/06: No change 08/07: Recheck BMP in the AM 08/08: Labs reviewed. Creatinine elevated 1.24. Recheck BMP on 08/10. Discontinue Naltrexone and Motrin. 08/09: Resume APAP 1000mg po TID. 08/10: Add an additional Lidoderm for his neck. Increase Toprol XL to 50mg po qday. 08/11: No med changes. 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 sCr remains mildly elevated. Avoid nephrotoxins. Discharge appointments needed: PCP, Pain Medicine, Addiction Medicine (if pt is willing) Milieu Management: Admit to: Medicine (IPF) >> NE4 Legal: >> >> SOC Acuity level: YELLOW Encouraged the patient to participate in unit activities. Level of Observation: No additional monitoring needed RE-CERTIFICATION & RISK ASSESSMENT The patient continues to need, on a daily basis, active inpatient psychiatric treatment for ongoingdiagnostic assessment and treatment of the following symptoms: AH, paranoia, substance withdrawal, and possible SI w possible SA prior to admission. The treatment can reasonably be expected to improve the patient's condition. Estimated length of stay is 30 days. Anticipated disposition: [facility] tx Risk Assessment: assault: Medium - paranoid Suicide Risk: Low Patient Strengths: willing to take medications Kristin Rutledge PA-C * Kristin Rutledge PA-C - 08/12/2023 2:32 PM CDT [facility] Psychiatry Progress Note PATIENT NAME: Nicanor Alvarado DATE OF SERVICE: 08/12/2023 ATTENDING PRACTITIONER: Kristin Rutledge PA-C HOSPITAL DAY # 23 CHIEF COMPLAINT subsequent inpatient psychiatric encounter INTERVAL HISTORY Nicanor Alvarado was seen in f/u by web content writer, , and CONCRETE ENGINEERING TECHNICIAN-fellow. Manager Convention noted the pt was observed inmovement group earlier. He discussed the precautions he must take in order to avoid exacerbation ofhis chronic pain, to include not rotating his head fully in either direction. (However, later in the day, he was observed telling a dramatic story to a peer, with more animation and near full ROM of his neck.) He talked about surgeries that he needs after d/c -- rotator cuff and hernia. He hopes for acceptance to [facility] tx at either [place] or [place]. He said his overnight sleep was very acceptable. Denied further paranoia or AH (as reported during initial part of hospitalization). He reported that despite his bx [employer], his mother wants him to return to her home, although he offered to move out. He became emotional when speaking about his mother and son. He discussed difficulty knowing how much to help his son, to avoid enabling him, as he too struggles w addiction. Pt was able to verbalize his positive reasons (mostly family related) for staying sober. He said he would have to be an absolute moron to screw up his relationship w his mother and ability to stay in her home. He looks forward to my kidneys healing so that he can resume Voltaren. REVIEW OF SYSTEMS Constitutional: did not endorse physical health concerns aside from as discussed above + chronic back / neck pain Psychiatric: did not endorse thoughts of self harm, SI, HI, and/or VH; see above Medication side effects: none endorsed CHART REVIEW & MULTIDISCIPLINARY TEAM MEETING Met with the multidisciplinary treatment team and discussed care and treatment planning. RN Report: Subjective: I feel much better today, I dont have much pain today as I used to Objective: Patient verbalized improvement with new pain treatment, he was in the day room watching TV and socializing with peers. He denies SI/HI/AVH, and pain was rated 4 on a scale of 1-10 all evening while pt did not make use of his PRN pain medication. No behavioral concern noted on evening shift. SW Report: reviewed and discussed Group attendance and participation: 2/3 OT PRN medications: reviewed MAR OBJECTIVE Hours of Sleep: Patient Vitals for the past 72 hrs: Sleep Hours 08/12/23 0615 7.3 HOURS 08/11/23 2220 1 HOURS 08/11/23 1508 0 HOURS 08/11/23 0615 7.8 HOURS 08/10/23 2200 0.8 HOURS 08/10/23 1500 0.3 HOURS 08/10/23 0632 7.5 HOURS 08/09/23 2226 0.8 HOURS 08/09/23 1505 0.8 HOURS LABS: Hospital Encounter on 07/20/23 (from the past 24 hour(s)) Extra Lavender top tube Result Value Ref Range Extra Lavender Top Drawn Specimen will be held for 3 days Basic Metabolic Panel Result Value Ref Range Sodium 138 136 - 145 mmol/L Potassium 4.3 3.5 - 5.1 mmol/L Chloride 103 98 - 109 mmol/L CO2 24 20 - 29 mmol/L Anion Gap 11 6 - 16 mmol/L Calcium 10.1 8.4 - 10.4 mg/dL BUN 19 7 - 26 mg/dL Creatinine 1.19 (H) 0.73 - 1.18 mg/dL Glucose 105 (H) 70 - 100 mg/dL GFR, Estimated >60 >60 mL/min/1.73m2 Current Facility-Administered Medications Medication Dose Route Frequency acetaminophen (TYLENOL) tablet 1,000 mg 1,000 mg Oral DAILY PRN acetaminophen (TYLENOL) tablet 1,000 mg 1,000 mg Oral TID amitriptyline (ELAVIL) tablet 100 mg 100 mg Oral At Bedtime amLODIPine (NORVASC) tablet 5 mg 5 mg Oral Daily aspirin chewable tablet 81 mg 81 mg Oral Daily atorvastatin (LIPITOR) tablet 20 mg 20 mg Oral Evening senna (SENOKOT) tablet 2 Tablet 2 Tablet Oral BID PRN And polyethylene glycol (MIRALAX) oral powder 17 g 17 g Oral DAILY PRN And bisacodyl (DULCOLAX) rectal suppository 10 mg 10 mg Rectal DAILY PRN calcium carbonate (TUMS) chewable tablet 1,000 mg 1,000 mg Oral Q4H PRN desonide (DESOWEN) 0.05 % cream Topical BID diclofenac (VOLTAREN) gel 2 g 2 g Topical QID PRN diphenhydrAMINE (BENADRYL) capsule 50 mg 50 mg Oral At Bedtime diphenhydrAMINE (BENADRYL) capsule 50 mg 50 mg Oral DAILY PRN folic acid tablet 1 mg 1 mg Oral Daily gabapentin (NEURONTIN) capsule 1,200 mg 1,200 mg Oral TID lidocaine (ASPERCREAM) 4 % patch 1 Patch 1 Patch Transdermal Daily lidocaine (ASPERCREAM) 4 % patch 2 Patch 2 Patch Transdermal Daily lidocaine (XYLOCAINE) 5 % ointment Topical TID PRN methocarbamol (ROBAXIN) tablet 750 mg 750 mg Oral TID PRN methocarbamol (ROBAXIN) tablet 750 mg 750 mg Oral At Bedtime metoprolol succinate (TOPROL XL) extended release tablet 50 mg 50 mg Oral Daily nicotine (COMMIT) lozenge 2 mg 2 mg Oral Q1H PRN Or nicotine (NICORETTE) gum 2 mg 2 mg Oral Q1H PRN OLANZapine (ZyPREXA ZYDIS) disintegrating tablet 10 mg 10 mg Oral BID PRN pantoprazole DR (PROTONIX) tablet 40 mg 40 mg Oral Daily at 6 am QUEtiapine (SEROquel) tablet 800 mg 800 mg Oral At Bedtime tamsulosin (FLOMAX) capsule 0.4 mg 0.4 mg Oral Daily after a meal thiamine (VITAMIN B-1) tablet 100 mg 100 mg Oral Daily Food intake: Amount of Diet Consumed (last 3 days) Date/Time Intake (%) 08/12/23 0812 100%;Breakfast 08/11/23 1713 100%;Dinner 08/11/23 1203 100%;Lunch 08/11/23 0830 100%;Breakfast 08/10/23 1729 100%;Dinner 08/10/23 1200 100%;Lunch 08/10/23 0818 100%;Breakfast 08/09/23 1725 100%;Dinner 08/09/23 1200 100%;Lunch 08/09/23 0800 100%;Breakfast ALLERGY Allergies Allergen Reactions Valproic Acid Other, see comments Excessive sedation Naltrexone Other, see comments Pt told RN he did not like it so he stopped taking it. MENTAL STATUS EXAM Filed Vitals: 08/11/23 1552 08/12/23 0816 08/12/23 1200 08/12/23 1428 BP: (!) 141/86 (!) 150/98 (!) 157/92 (!) 147/86 Pulse: 87 70 Resp: 18 18 Temp: 97.8 ??F (36.6 ??C) TempSrc: Oral SpO2: 100% 98% Weight: Height: Appearance: alert, intermittent eye contact, wearing scrubs, adequate grooming, appears older than stated age Behavior: engaged, needy, less med seeking Motor: less restless Gait and Station: unimpaired Speech: normal in rate, normal in volume, hyper-verbal / over-inclusive, less pressured Language: intact Thought process: largely linear although rambling Thought content: did not endorse thoughts of self harm, SI, HI, and/or VH; no overt paranoid / delusional content offered; denied paranoia and AH Associations: grossly intact Mood: neutral Affect: anxious to neutral Orientation: grossly oriented Attention: intact Insight: poor Judgment: poor CONSULTATION HOSPITAL MEDICINE, 07/24/23: Assessment / Recommendations Follow up on labs show creat 0.96, returned to normal range and resolved USAMA. K is 5.1 but sample hemolyzed. med consulted on 07/23/23 because of chronic back/neck/shoulder pain. To me, pt reports chronic low back, B/L hip, and shoulder pain. Frustrated that doctors will not prescribe him opioids, and that they recommend against diclofenac due to kidney issues. 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 In several studies, NSAIDshave shown to further increase the risk for thrombotic CV events as well as bleeding events. He is on ASA and addition of NSAID will increase risk of GI bleeding, as well. No current red flag symptoms for neck/back/shoulder pain, actually appears more controlled than previously per patient's report/chart review. Plan: - gabapentin has been helpful - continue 600 mg TID - lidocaine patch lower back has been helpful - continue daily; also offer additional lidocaine patch for neck or shoulder pain if pt desires - tylenol 650 mg prn changed to 1000 mg TID scheduled - diclofenac gel ordered instead to use topically as less systemic absorption - Given patient's chronic difficult to control pain and his h/o of self medicating with meds he buys off internet, I do think it is important to find a pain regimen that will control pt's chronic pain in a meaningful way so that he is less likely to use the internet to buy pills that are not prescribed to him - given it is the weekend, pain team is not available, but would consider primary team consult them and/or send OP referral to pain clinic for patient at hospital discharge. Pain team was consulted during a previous admission in May 2023, but he was not interested in any options other than opioids at that time. He did not ask me about opioids during our visit, so I believe he may nowbe open to more options, perhaps even intraarticular injections for shoulder/hip/back pain. med will sign off. Please reach out with any questions/concerns. Orin Nelson PA-C PAIN MANAGEMENT, 07/25: TREATMENT RECOMMENDATIONS/PLAN: Increase gabapentin to 1200mg TID Elavil 50mg QHS for sleep and nerve pain Change flexeril to robaxin 750 mg QID PRN NSAIDS could be considered in the future. Overall high risk patient with severe substance use disorder Will add non-opioid adjuvants. I did talk to him about suboxone; since he doesn't have opioid use disorder, this would not be my first preference. However, I would avoid pure opioid agonists at this time. ASSESSMENT AND RECOMMENDATIONS DISCUSSED WITH: Kristin Rutledge PA-C Thank you for consulting the Inpatient Pain Management Service. Please contact me with any questions or concerns. Aaron Galicia M.D. Addiction Medicine 08/09/23: ASSESSMENT/PLAN: 1. Alcohol use disorder, severe: Recent DUI. Patient is agreeable to treatment. States that he is on a stay of commitment. Challenged him to throw himself into his recovery. Discussed strategies for sobriety. Discussed the benefit of recovery meetings. Currently tolerating naltrexone but states he does not want to continue it. We will continue at discharge. 2. Methamphetamine/benzodiazepine use disorder: Discussed benefits of recovery meetings. Discussed benefits of 90 days of sobriety. Agrees to follow-up in my clinic. Bossman Franco MD IMPRESSION Nicanor Alvarado is a 57 y.o. male [...] his room over the weekend. Admitted to [facility]: 07/20: Restless on exam. Reported +AH and +paranoia (under investigation - which he is starting toquestion as the truth). Less disorganized as compared to when on Medicine. He said he was not really sure about the events [employer]. He drinks alcohol heavily, nearly 3L of [employer]'s rum per week. He has been prescribed Lexapro, but he is not consistent w taking it. Sometimes I need more, referring to self medicating. He used methamphetamine [employer]. He said he has +AH at his baseline, but while using methamphetamine, the +AH escalated and, it got bad. Someone could have . It all seemed so real. He said he began to think that he would be better off if he just used all of the methamph etamine, so he used some IV. His paranoia escalated and he began to feel like someone was going to come through his door, so I ate the rest of the bag b/c I thought I would need the rage and energy to fight them off. Guarded at times. Hesitantly, he denied having SI and he denied the [employer] event asa SA. 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 When initially in the ED, he reported +SI (also while on Medicine) and, when questioned about ingestion, he replied w not enough. Per chart review from the 05/2023 Medicine admission (admitted for erratic driving / legal blood draw, while in the ED he had a syncopal episode and required Medicine admission then transfer to [facility]): He reports that he had about 2 hospitalizations in the past month. One in [facility] (04/24/2022) for acute toxic encephalopathy, drug overdose (cannabinoids, methamphetamine), and alcohol withdrawal w/ delirium tremens which required large amount of benzo. He says he had another hospitalization in [place]. He reports that one of these hospitalizations led to ICU stay and he was told that his kidney were failing, but no detailed records of outside hospital stay are available on admission. 07/21: Restless, argumentative, anxious, irritable, and illogical. He is agreeable to [facility] tx, especially to access psychotherapy, knowing it will likely eventually be court ordered. However, he also stated that he has no intentions of quitting alcohol all together, but only cutting back, b/c of his chronic pain. Additionally, he is unwilling to stay in the hospital beyond his 72h hold, in order tofacilitate a door to door transfer to [facility] tx. He was educated on his risk of relapse and reminded of his recent hospitalizations, related to use / overdosing. Pt was reminded that he himself stated someone could have in relation to the events prior to this admission. He does not see his drinking as a problem, stating, I don't drive. Manager Convention noted that he recently missed a court date for aDUI charge and, last hospitalization here, he was brought here for a legal blood draw after being stopped for erratic driving. When asked about the pill bottles that were scattered around him, when found [employer], he could not give an explanation. Will file a petition for civil commitment. 07/22: Quite tense, irritable, and rude on approach. Said he wants to d/c directly to [facility] he suspects there must be a bench warrant issued for his arrest d/t missing a DUI court date a few weeks back. He slept better, but asked for PRN Benadryl instead of PRN Melatonin. Thought processwas linear. No overt paranoia. Reported +AH last edil. [facility] is supporting petition for commitment. 07/23: He is frustrated w not being able to access an opioid or Voltaren for his chronic pain. He has no insight into risk / benefit considerations. He is resistant to any treatment that takes more effort than popping a pill. He reluctantly agreed to a pain medicine consult. He was noted to be diaphoretic, but has not been scoring high enough on CIWA to warrant PRN BZD. He talked at length about his oldest son's by hanging and about how he has struggled in the aftermath and has failed to adequately support his second son over the years. His second son has attempted suicide numerous timesand is currently in [facility] tx. He added, I must before him. The pt talked about his hinduism bel iefs, about not believing in suicide, but having come to the conclusion that even someone who does not believe in suicide can get to the point of attempting suicide. He denied thoughts of self harm, SI, HI, and VH. He reported +AH and +tactile hallucinations >> hypnagogic-like. Affect was anxious, tense, and irritable. 07/24: No diaphoresis today. Using PRNs for sleep. Denied further AH, VH, or tactile hallucinations.(However, his report of hallucinations varies from person to person.) Agreeable to med trials for various concerns, but tends to want to immediately jump to large doses. Anxious, intense at times, and restless. Thought process is largely linear. Denied SI / HI. He mentioned this hospitalization as the 4th time he's been in the ICU in as many months. 07/25: More elevated, animated, intense, and irritable. Continues restless. Med seeking - more of (to include opioids, BZD, and now stimulants, but also other more benign meds) - and wanting to go straight to high doses. He is a very inconsistent historian w details changing from day to day, person to person. Memory impairment is noted. He noted that he did not trash his kidneys as badly prior to this admission as compared to his other 3 recent admissions. He minimized the significance of his past renal injury and dismissed the warnings he has received by healthcare professionals re the risks to his vital organs. He called them over-dramatic. Denied AH / SI. +Paranoia re demons? Hyper-verbal. 07/26: Continued fixation on medications, feels he is in need of something additional for both pain and sleep -- pt offers diclofenac and Xanax as effective interventions, but understanding when web content writer offered renal concerns with diclofenac and habit-forming tendencies with Xanax. Pt hopeful for Benadryl for sleep which was agreed upon. Discussed Gabapentin additionally as options for both pain, sleep and RLS. 07/27: Less intense, irritable than yesterday and reporting sufficient sleep for the first time in years. Generally fixated on pain, medication options in case things fail down the road during current hospitalization. Apart from this, pt occasionally offers comments about how Xanax and opiate medications would simplify my long med list, but redirectable. 07/28: Largely unchanged, though briefly frustrated with not having Robaxin scheduled. Will do so moving forward per his request. Feels ready for CD referrals, aware that final commitment hearing is not until next week. 07/29: Planning out possible medication changes on a daily basis, frequently asks what next step is if certain medications do not work for him long-term, additionally routes interview back to discussion of pain/diclofenac several times throughout interaction. Very focused on medication regimen schedule. 07/30: Continued fixation on possible medication options moving forward, today mostly surrounding safety profile of medications with alcohol use. Additionally reported voices over the last couple of days, previously withheld from treatment team as he thought this would result in Seroquel being takenaway. 07/31: Unchanged; required. Fran last night for sleep, had difficulty sleeping through the night for 1st time in several days. Agreed to keep medications as are for now, revisit sleep augmentation if issues persist. Otherwise, no changes. 08/01: Persistent request to have suicidal ideation/status clarified by current team, fearful of having this label carried over into time at treatment. Otherwise, reported worse sleep for the past twodays and would appreciate increase in amitriptyline which web content writer agreed to. 08/02: Pt calm, cooperative and medication compliant. Denies psych symptoms. He reports being in agreement with need for CD treatment but argues 3 months is too long as he is the primary provider for his adult son who also struggles with alcohol use/abuse. Discussed benefits for in-patient and hopefully pt will be able to help his son through addiction but the pt argues other james. He believes hisproblem is not meth rather alcohol and he can limit himself. Pt is argumentative and has no insighton dangerous behaviors poses increased risk. Reports adequate sleep since admission. 08/03: Stressed, anxious about court hearing tomorrow. Anticipates he will be committed but does notlike the language as it seems forceful rather then voluntary. Discussed CD tx options and support systems as he work to archived sobriety. Motivated to seek help so as to help his son. Report good sleep the past nights. Requested his records be doctored for suicide because he was never suicidal and does not want belongings taken away when he gets to treatment. 08/04: Mixed of emotions today. Pt had courts earlier today and is excited he was given a SOC as it gives him more options and means of helping his son as well. Pt continued to express committment to CD treatment. He hopes he and son can team up and do AA together. Reports adequate sleep at night. Denies psych symptoms. Re-consulted addiction medicine as the pt is more open to discussion/medication assisted treatment. 08/05: Improved mood. Pt is more open-minded to recommendations regarding treatment. He reports improve sleep on current regimen. He hoes that continues. Discussed sleep hygiene, recommended CBT-I forongoing insomnia. 08/06: Continue to have good sleep. Remains committed to CD tx and then AA but opposed to MAT. Pt wasseen by Addiction med and he was started on Naltrexone. Pt is refusing med stating he does not need it. He is minimizing his alcohol and stating he can self limit his alcohol usage. Shows limited insight into his addiction. Using Zyprexa PRN almost every night to resume sleep which has been effective. Will continue to evaluate the need for scheduled Zyprexa as pt denies psych symptoms. Pt was seen by spiritual care and that has helped improved his mood. 08/07: Pt is feeling sore but otherwise good. Reports adequate sleep despite some interruption during the night. Pt requesting diclofenac oral instead of the gel for chronic pain. Chart review showedconsult from pain med and med hold off on diclofenac due to concerns for kidney issues however creatinine (07/22 was 0.96) has normalized. Will reach out to pain management to see if it is appropriate to add diclofenac and d/c motrin due to significant chronic pain history. Pt case is challengingas he is determined to resolve to getting his meds from online sources. 08/08: Calm and cooperative. Refused Naltrxone so it was discontinued. Lab draw showed elevated creatinine levels of 1.24. Will plan to repeat lab on 08/10. Remains fixated on pain management. 08/09: Pt reported currently getting decent sleep. He perseverated on pain control and on getting either Ibu or Voltaren prescribed again. He has no insight into the risk of renal insult. He suggested being prescribed a little bit of an opioid to have on hand when things get really bad. Nothingoutside of a pill is doable after d/c. Pt lacks accountability for his past behaviors and use andthe resulting consequences. Referral to [facility]. Speech is hyper- verbal / over-inclusive and somewhat pressured. He is less restless. No overt paranoia. 08/10: Good participation in OT groups. Overnight sleep was better than usual. (Nearly 8h documented.) He is hopeful for YASMEEN tx at [facility]. Per his usual, seemingly in hopes of getting a prescription, he added a veiled threat to use NSAIDs and/or opioids on his own after d/c, feeling he has no other choice. No insight into his kidney health or addiction. I'd rather my kidneys fail than live inpain. 08/11: Less restless. Less med seeking. Reported very acceptable sleep and improved pain control. Denied further paranoia or AH (as reported during initial part of hospitalization). Eager for YASMEEN tx.He became emotional when speaking about his mother and son. Pt was able to verbalize his positive reasons (mostly family related) for staying sober. He looks forward to my kidneys healing so that he can resume Voltaren. DIAGNOSES & PLAN Principal Psychiatric / Substance Use Diagnoses: - encephalopathy s/p ingestion: improved - bipolar disorder w psychosis vs SCAD by hx - r/o substance induced psychosis - alcohol use disorder, severe - methamphetamine use disorder, severe - BZD use disorder, severe - alcohol / BZD withdrawal Medical Concerns to be addressed: - USAMA: sCr again elevated after recent NSAID use - ?element of CKD? - mild rhabdomyolysis: improved - chronic back pain: see Medicine / Pain consult - HTN: norvasc, increased toprol xl - GERD: restarted PPI - HLD: restarted statin - LUTS: flomax - Patient with moderate malnutrition in the context of social/environmental circumstances during hospital stay and remains with no acute or chronic nutrition problems at this time. Patient requiring additional resources due to degree of malnutrition during hospital stay. Dietitian following with the following nutrition therapy plan: 1.) Ok to continue boost TID 2.) RDN to sign off, please consult as needed Medication Ordered/Consults/Labs/Tests Ordered: 07/18: Delirium precautions ordered. Seroquel ordered 100 mg QHS and 50 mg q4PRN. Zyprexa 5 PO mg vs10 mg IV - TID PRN if needed. UDS ordered. Will order high dosed Thiamine. Will order addiction consult. Gabapentin 300 mg TID ordered for withdrawal symptoms. 07/19: Increase quetiapine to 100mg TID. [employer] dose was 800mg qHS. UDS+ for amphetamines. 07/20: Will give Seroquel 200mg at bedtime this edil then combine doses / change dose to 400mg po qhs. Will titrate to [employer] dose of 800mg po qhs as tolerated / indicated. Hold Lexapro for now. He has not been consistently taking it. Increase Neurontin to 600mg po TID. Offer Zyprexa 10mg po BID PRN. Continue CIWA protocol w PRN Valium and PRN Clonidine. 07/21: Lidocaine patch daily. Medicine consult if [facility] is issued. 07/22: Medicine consult for chronic back pain management. Increase Seroquel to 500mg po qhs. D/c PRNMelatonin and replace w PRN Benadryl. 07/23: Increase Seroquel to 600mg po qhs. Per his request, change Flexeril 10mg from TID PRN to TID.Will avoid Requip for RLS as it could worsen his DC sxs. Instead, will increase Neurontin to 900mg po TID. Spiritual care consult ordered. 07/24: Advance Seroquel to 700mg po qhs. Add Trazodone 50mg po qhs + 50mg po qhs PRN. Changed Benadryl to PRN itching only as this could worsen RLS, if that is truly what he has. Will discuss the possibility of akathisia (vs RLS) tomorrow. 07/25: Increase Seroquel to his [employer] dose of 800mg po qhs. Add a 2nd Lidocaine patch. Maximize daily APAP dose by allowing a daily PRN dose to his TID scheduled APAP. Pain Management consult placed. Trial Cogentin 1mg po BID for possible akathisia. D/c PRN Benadryl as he has Trazodone available. D/c CIWA. 07/26: MONTEZ Burr, may consider non-cardioselective beta messi in place of Toprol (ie. Inderal) for better akathisia coverage if RLS symptoms do not improve with increased Gabapentin. 07/27: Desonide cream BID for dermatitis. 07/28: Scheduled Robaxin 750 mg hs per pt request. 07/29 -- : No change. 08/01: EKG 08/02 AM. Amitriptyline to 100 mg hs. 08/02-: No change 08/04: Consult Addiction medicine 08/05: Per addiction med Naltrexone 50 mg daily 08/06: No change 08/07: Recheck BMP in the AM 08/08: Labs reviewed. Creatinine elevated 1.24. Recheck BMP on 08/10. Discontinue Naltrexone and Motrin. 08/09: Resume APAP 1000mg po TID. 08/10: Add an additional Lidoderm for his neck. Increase Toprol XL to 50mg po qday. 08/11: No med changes. sCr remains mildly elevated. Avoid nephrotoxins. Discharge appointments needed: PCP, Pain Medicine, Addiction Medicine (if pt is willing) Milieu Management: Admit to: [facility] Legal: >> >> SOC Acuity level: YELLOW Encouraged the patient to participate in unit activities. Level of Observation: No additional monitoring needed RE-CERTIFICATION & RISK ASSESSMENT The patient continues to need, on a daily basis, active inpatient psychiatric treatment for ongoingdiagnostic assessment and treatment of the following symptoms: AH, paranoia, substance withdrawal, and possible SI w possible SA prior to admission. The treatment can reasonably be expected to improve the patient's condition. Estimated length of stay is 30 days. Anticipated disposition: YASMEEN tx Risk Assessment: assault: Medium - paranoid Suicide Risk: Low Patient Strengths: willing to take medications This patient was also interviewed and examined by Dr. Crawley and the treatment plan was reviewed andagreed upon. Kristin Rutledge PA-C * Asuncion Galo RN - 08/12/2023 11:35 AM CDT [facility] Plan of Care Note Assessment: [facility] Plan of Care Note Assessment: Altered thought process/behavior/mood. Plan: Follow plan of care. Maintain safety. Provide therapeutic communication. Subjective: I need something stronger for my pain. Objective: Pt visible on the unit socializing with peers and attending group activities. He remainscalm, cooperative, and pleasant. He denies suicidal ideation, visual hallucination, auditory hallucination, and homicidal ideation. Pt shaved and showered. Rated pain 5/10. Scheduled pain medicationsadministered. PRN Robaxin requested/administered for back pain X2. Pt is preoccupied about pain medications that helped with his pain in the past. Pt reports he prefers NSAID. He talked about gettingsome NSAIDs after discharge. Pt was cooperative with blood draw in the AM. Initial BP 150/98. Scheduled BP medication administered. First recheck 157/92. Second recheck 147/86. Provider notified. Continue to monitor BP per provider. Behaviorally controlled on this shift. --- End of Report --- * Kristin Rutledge PA-C - 08/11/2023 2:17 PM CDT [facility] Psychiatry Progress Note PATIENT NAME: Nicanor Alvarado DATE OF SERVICE: 08/11/2023 ATTENDING PRACTITIONER: Kristin Rutledge PA-C HOSPITAL DAY # 22 CHIEF COMPLAINT subsequent inpatient psychiatric encounter INTERVAL HISTORY Nicanor Alvarado was seen in f/u by web content writer, , and CONCRETE ENGINEERING TECHNICIAN-fellow. He was found participating in OT group. 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 He said his overnight sleep was better than usual, although he woke and requested / received a PRN. We did troubleshooting around his loosening bridge work. He plans to work on making an appointment w his dentist. He discussed his past experience at [facility]. He liked their program aside from wishing they offered more one on one therapy, which he plans to pursue after d/c. He said he also needs to call the advice nurse about my DUI, althoughyesterday he said he has not had a DUI since age 18y. He talked about his chronic pain and liking NSAIDs better than APAP, as they are more effective. Per his usual, seemingly in hopes of getting a prescription, he added a veiled threat to use NSAIDs and/or opioids on his own after d/c, feeling he has no other choice. I'd rather my kidneys fail than live in pain. You don't know what real pain is! REVIEW OF SYSTEMS Constitutional: did not endorse physical health concerns aside from as discussed above + chronic back / neck pain Psychiatric: did not endorse thoughts of self harm, SI, HI, paranoia, AH, and/or VH Medication side effects: none endorsed CHART REVIEW & MULTIDISCIPLINARY TEAM MEETING Met with the multidisciplinary treatment team and discussed care and treatment planning. RN Report: Subjective: Can I have my medications around 2000h?. Objective: Patient is calm and oriented, he complained of pain rated 7 on a scale of 1- 10, PRN Tylenol BID new order given with good effect. He was in the day room socializing with peers and watching TV. No additional behavioral or safety concerns noted. SW Report: reviewed and discussed Group attendance and participation: 3/ OT PRN medications: reviewed MAR OBJECTIVE Hours of Sleep: Patient Vitals for the past 72 hrs: Sleep Hours 08/11/23 1508 0 HOURS 08/11/23 0615 7.8 HOURS 08/10/23 2200 0.8 HOURS 08/10/23 1500 0.3 HOURS 08/10/23 0632 7.5 HOURS 08/09/23 2226 0.8 HOURS 08/09/23 1505 0.8 HOURS 08/09/23 0635 7.5 HOURS 08/08/23 2244 1.5 HOURS LABS: No results found for this or any previous visit (from the past 24 hour(s)). Current Facility-Administered Medications Medication Dose Route Frequency acetaminophen (TYLENOL) tablet 1,000 mg 1,000 mg Oral DAILY PRN acetaminophen (TYLENOL) tablet 1,000 mg 1,000 mg Oral TID amitriptyline (ELAVIL) tablet 100 mg 100 mg Oral At Bedtime amLODIPine (NORVASC) tablet 5 mg 5 mg Oral Daily aspirin chewable tablet 81 mg 81 mg Oral Daily atorvastatin (LIPITOR) tablet 20 mg 20 mg Oral Evening senna (SENOKOT) tablet 2 Tablet 2 Tablet Oral BID PRN And polyethylene glycol (MIRALAX) oral powder 17 g 17 g Oral DAILY PRN And bisacodyl (DULCOLAX) rectal suppository 10 mg 10 mg Rectal DAILY PRN calcium carbonate (TUMS) chewable tablet 1,000 mg 1,000 mg Oral Q4H PRN desonide (DESOWEN) 0.05 % cream Topical BID diclofenac (VOLTAREN) gel 2 g 2 g Topical QID PRN diphenhydrAMINE (BENADRYL) capsule 50 mg 50 mg Oral At Bedtime diphenhydrAMINE (BENADRYL) capsule 50 mg 50 mg Oral DAILY PRN folic acid tablet 1 mg 1 mg Oral Daily gabapentin (NEURONTIN) capsule 1,200 mg 1,200 mg Oral TID lidocaine (ASPERCREAM) 4 % patch 1 Patch 1 Patch Transdermal Daily lidocaine (ASPERCREAM) 4 % patch 2 Patch 2 Patch Transdermal Daily lidocaine (XYLOCAINE) 5 % ointment Topical TID PRN methocarbamol (ROBAXIN) tablet 750 mg 750 mg Oral TID PRN methocarbamol (ROBAXIN) tablet 750 mg 750 mg Oral At Bedtime metoprolol succinate (TOPROL XL) extended release tablet 25 mg 25 mg Oral Daily nicotine (COMMIT) lozenge 2 mg 2 mg Oral Q1H PRN Or nicotine (NICORETTE) gum 2 mg 2 mg Oral Q1H PRN OLANZapine (ZyPREXA ZYDIS) disintegrating tablet 10 mg 10 mg Oral BID PRN pantoprazole DR (PROTONIX) tablet 40 mg 40 mg Oral Daily at 6 am QUEtiapine (SEROquel) tablet 800 mg 800 mg Oral At Bedtime tamsulosin (FLOMAX) capsule 0.4 mg 0.4 mg Oral Daily after a meal thiamine (VITAMIN B-1) tablet 100 mg 100 mg Oral Daily Food intake: Amount of Diet Consumed (last 3 days) Date/Time Intake (%) 08/11/23 1713 100%;Dinner 08/11/23 1203 100%;Lunch 08/11/23 0830 100%;Breakfast 08/10/23 1729 100%;Dinner 08/10/23 1200 100%;Lunch 08/10/23 0818 100%;Breakfast 08/09/23 1725 100%;Dinner 08/09/23 1200 100%;Lunch 08/09/23 0800 100%;Breakfast 08/08/23 1700 100%;Dinner 08/08/23 1215 100%;Lunch 08/08/23 0824 100%;Breakfast ALLERGY Allergies Allergen Reactions Valproic Acid Other, see comments Excessive sedation Naltrexone Other, see comments Pt told RN he did not like it so he stopped taking it. MENTAL STATUS EXAM Filed Vitals: 08/10/23 0800 08/10/23 1613 08/11/23 0800 08/11/23 1552 BP: (!) 150/96 (!) 137/94 (!) 146/96 (!) 141/86 Pulse: 88 80 82 87 Resp: 16 17 16 18 Temp: 97.2 ??F (36.2 ??C) 98.6 ??F (37 ??C) 97.1 ??F (36.2 ??C) 97.8 ??F (36.6 ??C) TempSrc: Skin Skin Skin Oral SpO2: 98% 98% 97% 100% Weight: Height: Appearance: alert, appropriate eye contact, wearing scrubs, adequate grooming, appears older than stated age Behavior: engaged, needy, med seeking, lacks accountability Motor: less restless Gait and Station: unimpaired Speech: normal in rate, normal in volume, hyper-verbal / over-inclusive, somewhat pressured Language: intact Thought process: largely linear Thought content: did not endorse thoughts of self harm, SI, HI, AH, and/or VH; no overt paranoid / delusional content offered Associations: grossly intact Mood: neutral Affect: anxious to neutral Orientation: grossly oriented Attention: intact Insight: poor Judgment: poor CONSULTATION [facility], 07/24/23: Assessment / Recommendations Follow up on labs show creat 0.96, returned to normal range and resolved USAMA. K is 5.1 but sample hemolyzed. med consulted on 07/23/23 because of chronic back/neck/shoulder pain. To me, pt reports chronic low back, B/L hip, and shoulder pain. Frustrated that doctors will not prescribe him opioids, and that they recommend against diclofenac due to kidney issues. 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 Although from a kidney perspective it may be safe to use NSAIDs, danny for an acute/short term need,I still do not believe this is the best nursing home medication for this patient for pain control moreso because of his cardiac risks with longstanding HLD, HTN, age, gender. In several studies, NSAIDshave shown to further increase the risk for thrombotic CV events as well as bleeding events. He is on ASA and addition of NSAID will increase risk of GI bleeding, as well. No current red flag symptoms for neck/back/shoulder pain, actually appears more controlled than previously per patient's report/chart review. Plan: - gabapentin has been helpful - continue 600 mg TID - lidocaine patch lower back has been helpful - continue daily; also offer additional lidocaine patch for neck or shoulder pain if pt desires - tylenol 650 mg prn changed to 1000 mg TID scheduled - diclofenac gel ordered instead to use topically as less systemic absorption - Given patient's chronic difficult to control pain and his h/o of self medicating with meds he buys off internet, I do think it is important to find a pain regimen that will control pt's chronic pain in a meaningful way so that he is less likely to use the internet to buy pills that are not prescribed to him - given it is the weekend, pain team is not available, but would consider primary team consult them and/or send OP referral to pain clinic for patient at hospital discharge. Pain team was consulted during a previous admission in May 2023, but he was not interested in any options other than opioids at that time. He did not ask me about opioids during our visit, so I believe he may nowbe open to more options, perhaps even intraarticular injections for shoulder/hip/back pain. [employer] will sign off. Please reach out with any questions/concerns. Orin Nelson PA-C PAIN MANAGEMENT, 07/25: TREATMENT RECOMMENDATIONS/PLAN: Increase gabapentin to 1200mg TID Elavil 50mg QHS for sleep and nerve pain Change flexeril to robaxin 750 mg QID PRN NSAIDS could be considered in the future. Overall high risk patient with severe substance use disorder Will add non-opioid adjuvants. I did talk to him about suboxone; since he doesn't have opioid use disorder, this would not be my first preference. However, I would avoid pure opioid agonists at this time. ASSESSMENT AND RECOMMENDATIONS DISCUSSED WITH: Kristin Rutledge PA-C Thank you for consulting the Inpatient Pain Management Service. Please contact me with any questions or concerns. Aaron Galicia M.D. Addiction Medicine 08/09/23: ASSESSMENT/PLAN: 1. Alcohol use disorder, severe: Recent DUI. Patient is agreeable to treatment. States that he is on a stay of commitment. Challenged him to throw himself into his recovery. Discussed strategies for sobriety. Discussed the benefit of recovery meetings. Currently tolerating naltrexone but states he does not want to continue it. We will continue at discharge. 2. Methamphetamine/benzodiazepine use disorder: Discussed benefits of recovery meetings. Discussed benefits of 90 days of sobriety. Agrees to follow-up in my clinic. Bossman Franco MD CAM Alvarado is a 57 y.o. male who has been admitted to station [facility] for AH, paranoia, substance withdrawal, and possible [...] his room over the weekend. Admitted to [facility]: 07/20: Restless on exam. Reported +AH and +paranoia (under investigation - which he is starting toquestion as the truth). Less disorganized as compared to when on Medicine. He said he was not really sure about the events [employer]. He drinks alcohol heavily, nearly 3L of [place] rum per week. He has been prescribed Lexapro, but he is not consistent w taking it. Sometimes I need more, referring to self medicating. He used methamphetamine [employer]. He said he has +AH at his baseline, but while using methamphetamine, the +AH escalated and, it got bad. Someone could have . It all seemed so real. He said he began to think that he would be better off if he just used all of the methamph etamine, so he used some IV. His paranoia escalated and he began to feel like someone was going to come through his door, so I ate the rest of the bag b/c I thought I would need the rage and energy to fight them off. Guarded at times. Hesitantly, he denied having SI and he denied the [employer] event asa SA. 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 When initially in the ED, he reported +SI (also while on Medicine) and, when questioned about ingestion, he replied w not enough. Per chart review from the 05/2023 Medicine admission (admitted for erratic driving / legal blood draw, while in the ED he had a syncopal episode and required Medicine admission then transfer to [facility]): He reports that he had about 2 hospitalizations in the past month. One in [facility] (04/24/2022) for acute toxic encephalopathy, drug overdose (cannabinoids, methamphetamine), and alcohol withdrawal w/ delirium tremens which required large amount of benzo. He says he had another hospitalization in [place]. He reports that one of these hospitalizations led to ICU stay and he was told that his kidney were failing, but no detailed records of outside hospital stay are available on admission. 07/21: Restless, argumentative, anxious, irritable, and illogical. He is agreeable to YASMEEN tx, especially to access psychotherapy, knowing it will likely eventually be court ordered. However, he also stated that he has no intentions of quitting alcohol all together, but only cutting back, b/c of his chronic pain. Additionally, he is unwilling to stay in the hospital beyond his 72h hold, in order tofacilitate a door to door transfer to YASMEEN tx. He was educated on his risk of relapse and reminded of his recent hospitalizations, related to use / overdosing. Pt was reminded that he himself stated someone could have in relation to the events prior to this admission. He does not see his drinking as a problem, stating, I don't drive. Manager Convention noted that he recently missed a court date for aDUI charge and, last hospitalization here, he was brought here for a legal blood draw after being stopped for erratic driving. When asked about the pill bottles that were scattered around him, when found [employer], he could not give an explanation. Will file a petition for civil commitment. 07/22: Quite tense, irritable, and rude on approach. Said he wants to d/c directly to [facility] he suspects there must be a bench warrant issued for his arrest d/t missing a DUI court date a few weeks back. He slept better, but asked for PRN Benadryl instead of PRN Melatonin. Thought processwas linear. No overt paranoia. Reported +AH last edil. [facility] is supporting petition for commitment. 07/23: He is frustrated w not being able to access an opioid or Voltaren for his chronic pain. He has no insight into risk / benefit considerations. He is resistant to any treatment that takes more effort than popping a pill. He reluctantly agreed to a pain medicine consult. He was noted to be diaphoretic, but has not been scoring high enough on CIWA to warrant PRN BZD. He talked at length about his oldest son's by hanging and about how he has struggled in the aftermath and has failed to adequately support his second son over the years. His second son has attempted suicide numerous timesand is currently in YASMEEN tx. He added, I must before him. The pt talked about his hinduism bel iefs, about not believing in suicide, but having come to the conclusion that even someone who does not believe in suicide can get to the point of attempting suicide. He denied thoughts of self harm, SI, HI, and VH. He reported +AH and +tactile hallucinations >> hypnagogic-like. Affect was anxious, tense, and irritable. 07/24: No diaphoresis today. Using PRNs for sleep. Denied further AH, VH, or tactile hallucinations.(However, his report of hallucinations varies from person to person.) Agreeable to med trials for various concerns, but tends to want to immediately jump to large doses. Anxious, intense at times, and restless. Thought process is largely linear. Denied SI / HI. He mentioned this hospitalization as the 4th time he's been in the ICU in as many months. 07/25: More elevated, animated, intense, and irritable. Continues restless. Med seeking - more of (to include opioids, BZD, and now stimulants, but also other more benign meds) - and wanting to go straight to high doses. He is a very inconsistent historian w details changing from day to day, person to person. Memory impairment is noted. He noted that he did not trash his kidneys as badly prior to this admission as compared to his other 3 recent admissions. He minimized the significance of his past renal injury and dismissed the warnings he has received by healthcare professionals re the risks to his vital organs. He called them over-dramatic. Denied AH / SI. +Paranoia re demons? Hyper-verbal. 07/26: Continued fixation on medications, feels he is in need of something additional for both pain and sleep -- pt offers diclofenac and Xanax as effective interventions, but understanding when web content writer offered renal concerns with diclofenac and habit-forming tendencies with Xanax. Pt hopeful for Benadryl for sleep which was agreed upon. Discussed Gabapentin additionally as options for both pain, sleep and RLS. 07/27: Less intense, irritable than yesterday and reporting sufficient sleep for the first time in years. Generally fixated on pain, medication options in case things fail down the road during current hospitalization. Apart from this, pt occasionally offers comments about how Xanax and opiate medications would simplify my long med list, but redirectable. 07/28: Largely unchanged, though briefly frustrated with not having Robaxin scheduled. Will do so moving forward per his request. Feels ready for CD referrals, aware that final commitment hearing is not until next week. 07/29: Planning out possible medication changes on a daily basis, frequently asks what next step is if certain medications do not work for him long-term, additionally routes interview back to discussion of pain/diclofenac several times throughout interaction. Very focused on medication regimen schedule. 07/30: Continued fixation on possible medication options moving forward, today mostly surrounding safety profile of medications with alcohol use. Additionally reported voices over the last couple of days, previously withheld from treatment team as he thought this would result in Seroquel being takenaway. 07/31: Unchanged; required. Fran last night for sleep, had difficulty sleeping through the night for 1st time in several days. Agreed to keep medications as are for now, revisit sleep augmentation if issues persist. Otherwise, no changes. 08/01: Persistent request to have suicidal ideation/status clarified by current team, fearful of having this label carried over into time at treatment. Otherwise, reported worse sleep for the past twodays and would appreciate increase in amitriptyline which web content writer agreed to. 08/02: Pt calm, cooperative and medication compliant. Denies psych symptoms. He reports being in agreement with need for CD treatment but argues 3 months is too long as he is the primary provider for his adult son who also struggles with alcohol use/abuse. Discussed benefits for in-patient and hopefully pt will be able to help his son through addiction but the pt argues other james. He believes hisproblem is not meth rather alcohol and he can limit himself. Pt is argumentative and has no insighton dangerous behaviors poses increased risk. Reports adequate sleep since admission. 08/03: Stressed, anxious about court hearing tomorrow. Anticipates he will be committed but does notlike the language as it seems forceful rather then voluntary. Discussed CD tx options and support systems as he work to archived sobriety. Motivated to seek help so as to help his son. Report good sleep the past nights. Requested his records be doctored for suicide because he was never suicidal and does not want belongings taken away when he gets to treatment. 08/04: Mixed of emotions today. Pt had courts earlier today and is excited he was given a SOC as it gives him more options and means of helping his son as well. Pt continued to express committment to CD treatment. He hopes he and son can team up and do AA together. Reports adequate sleep at night. Denies psych symptoms. Re-consulted addiction medicine as the pt is more open to discussion/medication assisted treatment. 08/05: Improved mood. Pt is more open-minded to recommendations regarding treatment. He reports improve sleep on current regimen. He hoes that continues. Discussed sleep hygiene, recommended CBT-I forongoing insomnia. 08/06: Continue to have good sleep. Remains committed to CD tx and then AA but opposed to MAT. Pt wasseen by Addiction med and he was started on Naltrexone. Pt is refusing med stating he does not need it. He is minimizing his alcohol and stating he can self limit his alcohol usage. Shows limited insight into his addiction. Using Zyprexa PRN almost every night to resume sleep which has been effective. Will continue to evaluate the need for scheduled Zyprexa as pt denies psych symptoms. Pt was seen by spiritual care and that has helped improved his mood. 08/07: Pt is feeling sore but otherwise good. Reports adequate sleep despite some interruption during the night. Pt requesting diclofenac oral instead of the gel for chronic pain. Chart review showedconsult from pain med and med hold off on diclofenac due to concerns for kidney issues however creatinine (07/22 was 0.96) has normalized. Will reach out to pain management to see if it is appropriate to add diclofenac and d/c motrin due to significant chronic pain history. Pt case is challengingas he is determined to resolve to getting his meds from online sources. 08/08: Calm and cooperative. Refused Naltrxone so it was discontinued. Lab draw showed elevated creatinine levels of 1.24. Will plan to repeat lab on 08/10. Remains fixated on pain management. 08/09: Pt reported currently getting decent sleep. He perseverated on pain control and on getting either Ibu or Voltaren prescribed again. He has no insight into the risk of renal insult. He suggested being prescribed a little bit of an opioid to have on hand when things get really bad. Nothingoutside of a pill is doable after d/c. Pt lacks accountability for his past behaviors and use andthe resulting consequences. Referral to [place]. Speech is hyper- verbal / over-inclusive and somewhat pressured. He is less restless. No overt paranoia. 08/10: Good participation in OT groups. Overnight sleep was better than usual. (Nearly 8h documented.) He is hopeful for YASMEEN tx at [place]. Per his usual, seemingly in hopes of getting a prescription, he added a veiled threat to use NSAIDs and/or opioids on his own after d/c, feeling he has no other choice. No insight into his kidney health or addiction. I'd rather my kidneys fail than live inpain. DIAGNOSES & PLAN Principal Psychiatric / Substance Use Diagnoses: - encephalopathy s/p ingestion: improved - bipolar disorder w psychosis vs SCAD by hx - r/o substance induced psychosis - alcohol use disorder, severe - methamphetamine use disorder, severe - BZD use disorder, severe - alcohol / BZD withdrawal Medical Concerns to be addressed: - USAMA: resolved ? - ?element of CKD? - mild rhabdomyolysis: improved - chronic back pain: see Medicine / Pain consult - HTN: restarted [employer] medications - GERD: restarted PPI - HLD: restarted statin - LUTS: flomax - Patient with moderate malnutrition in the context of social/environmental circumstances during hospital stay and remains with no acute or chronic nutrition problems at this time. Patient requiring additional resources due to degree of malnutrition during hospital stay. Dietitian following with the following nutrition therapy plan: 1.) Ok to continue boost TID 2.) RDN to sign off, please consult as needed Medication Ordered/Consults/Labs/Tests Ordered: 07/18: Delirium precautions ordered. Seroquel ordered 100 mg QHS and 50 mg q4PRN. Zyprexa 5 PO mg vs10 mg IV - TID PRN if needed. UDS ordered. Will order high dosed Thiamine. Will order addiction consult. Gabapentin 300 mg TID ordered for withdrawal symptoms. 07/19: Increase quetiapine to 100mg TID. [employer] dose was 800mg qHS. UDS+ for amphetamines. 07/20: Will give Seroquel 200mg at bedtime this edil then combine doses / change dose to 400mg po qhs. Will titrate to [employer] dose of 800mg po qhs as tolerated / indicated. Hold Lexapro for now. He has not been consistently taking it. Increase Neurontin to 600mg po TID. Offer Zyprexa 10mg po BID PRN. Continue CIWA protocol w PRN Valium and PRN Clonidine. 07/21: Lidocaine patch daily. Medicine consult if [facility] is issued. 07/22: Medicine consult for chronic back pain management. Increase Seroquel to 500mg po qhs. D/c PRNMelatonin and replace w PRN Benadryl. 07/23: Increase Seroquel to 600mg po qhs. Per his request, change Flexeril 10mg from TID PRN to TID.Will avoid Requip for RLS as it could worsen his DC sxs. Instead, will increase Neurontin to 900mg po TID. Spiritual care consult ordered. 07/24: Advance Seroquel to 700mg po qhs. Add Trazodone 50mg po qhs + 50mg po qhs PRN. Changed Benadryl to PRN itching only as this could worsen RLS, if that is truly what he has. Will discuss the possibility of akathisia (vs RLS) tomorrow. 07/25: Increase Seroquel to his [employer] dose of 800mg po qhs. Add a 2nd Lidocaine patch. Maximize daily APAP dose by allowing a daily PRN dose to his TID scheduled APAP. Pain Management consult placed. Trial Cogentin 1mg po BID for possible akathisia. D/c PRN Benadryl as he has Trazodone available. D/c CIWA. 07/26: MONTEZ Burr, may consider non-cardioselective beta messi in place of Toprol (ie. Inderal) for better akathisia coverage if RLS symptoms do not improve with increased Gabapentin. 07/27: Desonide cream BID for dermatitis. 07/28: Scheduled Robaxin 750 mg hs per pt request. 07/29 -- : No change. 08/01: EKG 08/02 AM. Amitriptyline to 100 mg hs. 08/02-: No change 08/04: Consult Addiction medicine 08/05: Per addiction med Naltrexone 50 mg daily 08/06: No change 08/07: Recheck BMP in the AM 08/08: Labs reviewed. Creatinine elevated 1.24. Recheck BMP on 08/10. Discontinue Naltrexone and Motrin. 08/09: Resume APAP 1000mg po TID. 08/10: Add an additional Lidoderm for his neck. Increase Toprol XL to 50mg po qday. Pt refused BMP. Discharge appointments needed: PCP, Pain Medicine, Addiction Medicine (if pt is willing) Milieu Management: Admit to: [facility] Legal: >> >> SOC Acuity level: YELLOW Encouraged the patient to participate in unit activities. Level of Observation: No additional monitoring needed RE-CERTIFICATION & RISK ASSESSMENT The patient continues to need, on a daily basis, active inpatient psychiatric treatment for ongoingdiagnostic assessment and treatment of the following symptoms: AH, paranoia, substance withdrawal, and possible SI w possible SA prior to admission. The treatment can reasonably be expected to improve the patient's condition. Estimated length of stay is 30 days. Anticipated disposition: YASMEEN tx Risk Assessment: assault: Medium - paranoid Suicide Risk: Low Patient Strengths: willing to take medications This patient was also interviewed and examined by Dr. Crawley and the treatment plan was reviewed andagreed upon. Kristin Rutledge PA-C * Kristin Rutledge PA-C - 08/10/2023 2:54 PM CDT [facility] Psychiatry Progress Note PATIENT NAME: Nicanor Alvarado DATE OF SERVICE: 08/10/2023 ATTENDING PRACTITIONER: Kristin Rutledge PA-C HOSPITAL DAY # 21 CHIEF COMPLAINT subsequent inpatient psychiatric encounter INTERVAL HISTORY Nicanor Alvarado was seen in f/u by MD honey, and CONCRETE ENGINEERING TECHNICIAN-fellow. The pt began with a recap of the past 2 weeks (web content writer was off service). He began with, I'm an insomniac, but reported his pleasure with the fact that he is currently getting decent sleep. He said he was unhappy w his pain control. He c/o being able to have APAP only once per day. After some discussion, it was revealed that he asked for his scheduled APAP to be d/c'd, but this order was not replaced w PRN APAP. He reported againwanting his APAP scheduled. He is disappointed w the fact that Ibu was d/c'd due to elevation of his sCr. He perseverated on getting either Ibu or Voltaren prescribed again, and he has no insight into the risk of renal insult. He is worried about what his pain will be [place] YASMEEN tx, and he lobbied for having access to some opioids. He is using Lidoderm now, but said that won't be doable after d/c. He requested a Pain Clinic referral at the time of d/c. He rambled about never having a DUI except for at age 18y, but also about not having his license and needing to go to the DMV to correct this after d/c. He is thinking he should bring along his commitment(SOC) and disability ppwk, hoping the DMV will have understanding of his situation and need to be able to drive himself to his AA meetings and other appointments. REVIEW OF SYSTEMS Constitutional: did not endorse physical health concerns aside from as discussed above + chronic back / neck pain Psychiatric: did not endorse thoughts of self harm, SI, HI, paranoia, AH, and/or VH Medication side effects: none endorsed CHART REVIEW & MULTIDISCIPLINARY TEAM MEETING Met with the multidisciplinary treatment team and discussed care and treatment planning. RN Report: Subjective: My day was fine until they stopped my Motrin. 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 My pain is 3 now, but I'm talking about when it gets worse. I can't wait to get out of here to start taking Aleve Objective: Pt has been visible on the unit, socializing with peers intermittently. Pt reported doing fine today until Motrin was discontinued by provider. Pt reported tolerable pain to neck, rated at3/10, perseverated and preoccupied with Motrin being dc'd and dealing with chronic pain. Warm pack was utilized intermittently and effective per pt. Pt denied SI, HI, AVH, thoughts of hurting self orothers. Visible mostly in the common areas mostly watching TV with peers. Out to NS intermittently to make needs known. SW Report: reviewed and discussed Group attendance and participation: 05/08 OT PRN medications: reviewed MAR OBJECTIVE Hours of Sleep: Patient Vitals for the past 72 hrs: Sleep Hours 08/10/23 1500 0.3 HOURS 08/10/23 0632 7.5 HOURS 08/09/23 2226 0.8 HOURS 08/09/23 1505 0.8 HOURS 08/09/23 0635 7.5 HOURS 08/08/23 2244 1.5 HOURS 08/08/23 1449 0.8 HOURS 08/08/23 0647 7 HOURS 08/07/23 2301 1.3 HOURS LABS: No results found for this or any previous visit (from the past 24 hour(s)). Current Facility-Administered Medications Medication Dose Route Frequency acetaminophen (TYLENOL) tablet 1,000 mg 1,000 mg Oral TID acetaminophen (TYLENOL) tablet 1,000 mg 1,000 mg Oral BID PRN acetaminophen (TYLENOL) tablet 1,000 mg 1,000 mg Oral DAILY PRN amitriptyline (ELAVIL) tablet 100 mg 100 mg Oral At Bedtime amLODIPine (NORVASC) tablet 5 mg 5 mg Oral Daily aspirin chewable tablet 81 mg 81 mg Oral Daily atorvastatin (LIPITOR) tablet 20 mg 20 mg Oral Evening senna (SENOKOT) tablet 2 Tablet 2 Tablet Oral BID PRN And polyethylene glycol (MIRALAX) oral powder 17 g 17 g Oral DAILY PRN And bisacodyl (DULCOLAX) rectal suppository 10 mg 10 mg Rectal DAILY PRN calcium carbonate (TUMS) chewable tablet 1,000 mg 1,000 mg Oral Q4H PRN desonide (DESOWEN) 0.05 % cream Topical BID diclofenac (VOLTAREN) gel 2 g 2 g Topical QID PRN diphenhydrAMINE (BENADRYL) capsule 50 mg 50 mg Oral At Bedtime diphenhydrAMINE (BENADRYL) capsule 50 mg 50 mg Oral DAILY PRN folic acid tablet 1 mg 1 mg Oral Daily gabapentin (NEURONTIN) capsule 1,200 mg 1,200 mg Oral TID lidocaine (ASPERCREAM) 4 % patch 2 Patch 2 Patch Transdermal Daily lidocaine (XYLOCAINE) 5 % ointment Topical TID PRN methocarbamol (ROBAXIN) tablet 750 mg 750 mg Oral TID PRN methocarbamol (ROBAXIN) tablet 750 mg 750 mg Oral At Bedtime metoprolol succinate (TOPROL XL) extended release tablet 25 mg 25 mg Oral Daily nicotine (COMMIT) lozenge 2 mg 2 mg Oral Q1H PRN Or nicotine (NICORETTE) gum 2 mg 2 mg Oral Q1H PRN OLANZapine (ZyPREXA ZYDIS) disintegrating tablet 10 mg 10 mg Oral BID PRN pantoprazole DR (PROTONIX) tablet 40 mg 40 mg Oral Daily at 6 am QUEtiapine (SEROquel) tablet 800 mg 800 mg Oral At Bedtime tamsulosin (FLOMAX) capsule 0.4 mg 0.4 mg Oral Daily after a meal thiamine (VITAMIN B-1) tablet 100 mg 100 mg Oral Daily Food intake: Amount of Diet Consumed (last 3 days) Date/Time Intake (%) 08/10/23 1200 100%;Lunch 08/10/23 0818 100%;Breakfast 08/09/23 1725 100%;Dinner 08/09/23 1200 100%;Lunch 08/09/23 0800 100%;Breakfast 08/08/23 1700 100%;Dinner 08/08/23 1215 100%;Lunch 08/08/23 0824 100%;Breakfast 08/07/23 1732 100%;Dinner 08/07/23 1212 100%;Lunch 08/07/23 0839 100%;Breakfast ALLERGY Allergies Allergen Reactions Valproic Acid Other, see comments Excessive sedation Naltrexone Other, see comments Pt told RN he did not like it so he stopped taking it. MENTAL STATUS EXAM Filed Vitals: 08/08/23 1613 08/09/23 0804 08/09/23 1607 08/10/23 0800 BP: (!) 160/86 (!) 145/94 (!) 153/86 (!) 150/96 Pulse: 85 87 96 88 Resp: 17 16 16 16 Temp: 97 ??F (36.1 ??C) 97.6 ??F (36.4 ??C) 97.9 ??F (36.6 ??C) 97.2 ??F (36.2 ??C) TempSrc: Temporal Artery Skin Temporal Artery Skin SpO2: 96% 100% 98% 98% Weight: Height: Appearance: alert, improved eye contact, wearing scrubs, adequate grooming, appears older than stated age Behavior: engaged, needy, med seeking, lacks accountability Motor: less restless Gait and Station: unimpaired Speech: normal in rate, normal in volume, hyper-verbal / over-inclusive, somewhat pressured Language: intact Thought process: largely linear Thought content: did not endorse thoughts of self harm, SI, HI, AH, and/or VH; no overt paranoid / delusional content offered Associations: grossly intact Mood: neutral Affect: anxious to neutral Orientation: grossly oriented Attention: intact Insight: poor Judgment: poor CONSULTATION [facility], 07/24/23: Assessment / Recommendations Follow up on labs show creat 0.96, returned to normal range and resolved USAMA. K is 5.1 but sample hemolyzed. med consulted on 07/23/23 because of chronic back/neck/shoulder pain. To me, pt reports chronic low back, B/L hip, and shoulder pain. Frustrated that doctors will not prescribe him opioids, and that they recommend against diclofenac due to kidney issues. 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 In several studies, NSAIDshave shown to further increase the risk for thrombotic CV events as well as bleeding events. He is on ASA and addition of NSAID will increase risk of GI bleeding, as well. No current red flag symptoms for neck/back/shoulder pain, actually appears more controlled than previously per patient's report/chart review. Plan: - gabapentin has been helpful - continue 600 mg TID - lidocaine patch lower back has been helpful - continue daily; also offer additional lidocaine patch for neck or shoulder pain if pt desires - tylenol 650 mg prn changed to 1000 mg TID scheduled - diclofenac gel ordered instead to use topically as less systemic absorption - Given patient's chronic difficult to control pain and his h/o of self medicating with meds he buys off internet, I do think it is important to find a pain regimen that will control pt's chronic pain in a meaningful way so that he is less likely to use the internet to buy pills that are not prescribed to him - given it is the weekend, pain team is not available, but would consider primary team consult them and/or send OP referral to pain clinic for patient at hospital discharge. Pain team was consulted during a previous admission in May 2023, but he was not interested in any options other than opioids at that time. He did not ask me about opioids during our visit, so I believe he may nowbe open to more options, perhaps even intraarticular injections for shoulder/hip/back pain. [employer] will sign off. Please reach out with any questions/concerns. Orin Nelson PA-C PAIN MANAGEMENT, 07/25: TREATMENT RECOMMENDATIONS/PLAN: Increase gabapentin to 1200mg TID Elavil 50mg QHS for sleep and nerve pain Change flexeril to robaxin 750 mg QID PRN NSAIDS could be considered in the future. Overall high risk patient with severe substance use disorder Will add non-opioid adjuvants. I did talk to him about suboxone; since he doesn't have opioid use disorder, this would not be my first preference. However, I would avoid pure opioid agonists at this time. ASSESSMENT AND RECOMMENDATIONS DISCUSSED WITH: Kristin Rutledge PA-C Thank you for consulting the Inpatient Pain Management Service. Please contact me with any questions or concerns. Aaron Galicia M.D. Addiction Medicine 08/09/23: ASSESSMENT/PLAN: 1. Alcohol use disorder, severe: Recent DUI. Patient is agreeable to treatment. States that he is on a stay of commitment. Challenged him to throw himself into his recovery. Discussed strategies for sobriety. Discussed the benefit of recovery meetings. Currently tolerating naltrexone but states he does not want to continue it. We will continue at discharge. 2. Methamphetamine/benzodiazepine use disorder: Discussed benefits of recovery meetings. Discussed benefits of 90 days of sobriety. Agrees to follow-up in my clinic. Bossman Franco MD CAM Alvarado is a 57 y.o. male who has been admitted to station [facility] for AH, paranoia, substance withdrawal, and possible [...] his room over the weekend. Admitted to [facility]: 07/20: Restless on exam. Reported +AH and +paranoia (under investigation - which he is starting toquestion as the truth). Less disorganized as compared to when on Medicine. He said he was not really sure about the events [employer]. He drinks alcohol heavily, nearly 3L of [place] rum per week. He has been prescribed Lexapro, but he is not consistent w taking it. Sometimes I need more, referring to self medicating. He used methamphetamine [employer]. He said he has +AH at his baseline, but while using methamphetamine, the +AH escalated and, it got bad. Someone could have . It all seemed so real. He said he began to think that he would be better off if he just used all of the methamph etamine, so he used some IV. His paranoia escalated and he began to feel like someone was going to come through his door, so I ate the rest of the bag b/c I thought I would need the rage and energy to fight them off. Guarded at times. Hesitantly, he denied having SI and he denied the [employer] event asa SA. 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 When initially in the ED, he reported +SI (also while on Medicine) and, when questioned about ingestion, he replied w not enough. Per chart review from the 05/2023 Medicine admission (admitted for erratic driving / legal blood draw, while in the ED he had a syncopal episode and required Medicine admission then transfer to [facility]): He reports that he had about 2 hospitalizations in the past month. One in [facility] (04/24/2022) for acute toxic encephalopathy, drug overdose (cannabinoids, methamphetamine), and alcohol withdrawal w/ delirium tremens which required large amount of benzo. He says he had another hospitalization in [place]. He reports that one of these hospitalizations led to ICU stay and he was told that his kidney were failing, but no detailed records of outside hospital stay are available on admission. 07/21: Restless, argumentative, anxious, irritable, and illogical. He is agreeable to YASMEEN tx, especially to access psychotherapy, knowing it will likely eventually be court ordered. However, he also stated that he has no intentions of quitting alcohol all together, but only cutting back, b/c of his chronic pain. Additionally, he is unwilling to stay in the hospital beyond his 72h hold, in order tofacilitate a door to door transfer to YASMEEN tx. He was educated on his risk of relapse and reminded of his recent hospitalizations, related to use / overdosing. Pt was reminded that he himself stated someone could have in relation to the events prior to this admission. He does not see his drinking as a problem, stating, I don't drive. Manager Convention noted that he recently missed a court date for aDUI charge and, last hospitalization here, he was brought here for a legal blood draw after being stopped for erratic driving. When asked about the pill bottles that were scattered around him, when found [employer], he could not give an explanation. Will file a petition for civil commitment. 07/22: Quite tense, irritable, and rude on approach. Said he wants to d/c directly to [facility] he suspects there must be a bench warrant issued for his arrest d/t missing a DUI court date a few weeks back. He slept better, but asked for PRN Benadryl instead of PRN Melatonin. Thought processwas linear. No overt paranoia. Reported +AH last edil. [facility] is supporting petition for commitment. 07/23: He is frustrated w not being able to access an opioid or Voltaren for his chronic pain. He has no insight into risk / benefit considerations. He is resistant to any treatment that takes more effort than popping a pill. He reluctantly agreed to a pain medicine consult. He was noted to be diaphoretic, but has not been scoring high enough on CIWA to warrant PRN BZD. He talked at length about his oldest son's by hanging and about how he has struggled in the aftermath and has failed to adequately support his second son over the years. His second son has attempted suicide numerous timesand is currently in [facility] tx. He added, I must before him. The pt talked about his hinduism bel iefs, about not believing in suicide, but having come to the conclusion that even someone who does not believe in suicide can get to the point of attempting suicide. He denied thoughts of self harm, SI, HI, and VH. He reported +AH and +tactile hallucinations >> hypnagogic-like. Affect was anxious, tense, and irritable. 07/24: No diaphoresis today. Using PRNs for sleep. Denied further AH, VH, or tactile hallucinations.(However, his report of hallucinations varies from person to person.) Agreeable to med trials for various concerns, but tends to want to immediately jump to large doses. Anxious, intense at times, and restless. Thought process is largely linear. Denied SI / HI. He mentioned this hospitalization as the 4th time he's been in the ICU in as many months. 07/25: More elevated, animated, intense, and irritable. Continues restless. Med seeking - more of (to include opioids, BZD, and now stimulants, but also other more benign meds) - and wanting to go straight to high doses. He is a very inconsistent historian w details changing from day to day, person to person. Memory impairment is noted. He noted that he did not trash his kidneys as badly prior to this admission as compared to his other 3 recent admissions. He minimized the significance of his past renal injury and dismissed the warnings he has received by healthcare professionals re the risks to his vital organs. He called them over-dramatic. Denied AH / SI. +Paranoia re demons? Hyper-verbal. 07/26: Continued fixation on medications, feels he is in need of something additional for both pain and sleep -- pt offers diclofenac and Xanax as effective interventions, but understanding when web content writer offered renal concerns with diclofenac and habit-forming tendencies with Xanax. Pt hopeful for Benadryl for sleep which was agreed upon. Discussed Gabapentin additionally as options for both pain, sleep and RLS. 07/27: Less intense, irritable than yesterday and reporting sufficient sleep for the first time in years. Generally fixated on pain, medication options in case things fail down the road during current hospitalization. Apart from this, pt occasionally offers comments about how Xanax and opiate medications would simplify my long med list, but redirectable. 07/28: Largely unchanged, though briefly frustrated with not having Robaxin scheduled. Will do so moving forward per his request. Feels ready for CD referrals, aware that final commitment hearing is not until next week. 07/29: Planning out possible medication changes on a daily basis, frequently asks what next step is if certain medications do not work for him long-term, additionally routes interview back to discussion of pain/diclofenac several times throughout interaction. Very focused on medication regimen schedule. 07/30: Continued fixation on possible medication options moving forward, today mostly surrounding safety profile of medications with alcohol use. Additionally reported voices over the last couple of days, previously withheld from treatment team as he thought this would result in Seroquel being takenaway. 07/31: Unchanged; required. Fran last night for sleep, had difficulty sleeping through the night for 1st time in several days. Agreed to keep medications as are for now, revisit sleep augmentation if issues persist. Otherwise, no changes. 08/01: Persistent request to have suicidal ideation/status clarified by current team, fearful of having this label carried over into time at treatment. Otherwise, reported worse sleep for the past twodays and would appreciate increase in amitriptyline which web content writer agreed to. 08/02: Pt calm, cooperative and medication compliant. Denies psych symptoms. He reports being in agreement with need for CD treatment but argues 3 months is too long as he is the primary provider for his adult son who also struggles with alcohol use/abuse. Discussed benefits for in-patient and hopefully pt will be able to help his son through addiction but the pt argues other james. He believes hisproblem is not meth rather alcohol and he can limit himself. Pt is argumentative and has no insighton dangerous behaviors poses increased risk. Reports adequate sleep since admission. 08/03: Stressed, anxious about court hearing tomorrow. Anticipates he will be committed but does notlike the language as it seems forceful rather then voluntary. Discussed CD tx options and support systems as he work to archived sobriety. Motivated to seek help so as to help his son. Report good sleep the past nights. Requested his records be doctored for suicide because he was never suicidal and does not want belongings taken away when he gets to treatment. 08/04: Mixed of emotions today. Pt had courts earlier today and is excited he was given a SOC as it gives him more options and means of helping his son as well. Pt continued to express committment to CD treatment. He hopes he and son can team up and do AA together. Reports adequate sleep at night. Denies psych symptoms. Re-consulted addiction medicine as the pt is more open to discussion/medication assisted treatment. 08/05: Improved mood. Pt is more open-minded to recommendations regarding treatment. He reports improve sleep on current regimen. He hoes that continues. Discussed sleep hygiene, recommended CBT-I forongoing insomnia. 08/06: Continue to have good sleep. Remains committed to CD tx and then AA but opposed to MAT. Pt wasseen by Addiction med and he was started on Naltrexone. Pt is refusing med stating he does not need it. He is minimizing his alcohol and stating he can self limit his alcohol usage. Shows limited insight into his addiction. Using Zyprexa PRN almost every night to resume sleep which has been effective. Will continue to evaluate the need for scheduled Zyprexa as pt denies psych symptoms. Pt was seen by spiritual care and that has helped improved his mood. 08/07: Pt is feeling sore but otherwise good. Reports adequate sleep despite some interruption during the night. Pt requesting diclofenac oral instead of the gel for chronic pain. Chart review showedconsult from pain med and med hold off on diclofenac due to concerns for kidney issues however creatinine (07/22 was 0.96) has normalized. Will reach out to pain management to see if it is appropriate to add diclofenac and d/c motrin due to significant chronic pain history. Pt case is challengingas he is determined to resolve to getting his meds from online sources. 08/08: Calm and cooperative. Refused Naltrxone so it was discontinued. Lab draw showed elevated creatinine levels of 1.24. Will plan to repeat lab on 08/10. Remains fixated on pain management. 08/09: Pt reported currently getting decent sleep. He perseverated on pain control and on getting either Ibu or Voltaren prescribed again. He has no insight into the risk of renal insult. He suggested being prescribed a little bit of an opioid to have on hand when things get really bad. Nothingoutside of a pill is doable after d/c. Pt lacks accountability for his past behaviors and use andthe resulting consequences. Referral to [place]. Speech is hyper- verbal / over-inclusive and somewhat pressured. He is less restless. No overt paranoia. DIAGNOSES & PLAN Principal Psychiatric / Substance Use Diagnoses: - encephalopathy s/p ingestion: improved - bipolar disorder w psychosis vs SCAD by hx - r/o substance induced psychosis - alcohol use disorder, severe - methamphetamine use disorder, severe - BZD use disorder, severe - alcohol / BZD withdrawal Medical Concerns to be addressed: - USAMA: resolved - ?element of CKD? - mild rhabdomyolysis: improved - chronic back pain: see Medicine / Pain consult - HTN: restarted [employer] medications - GERD: restarted PPI - HLD: restarted statin - LUTS: flomax - Patient with moderate malnutrition in the context of social/environmental circumstances during hospital stay and remains with no acute or chronic nutrition problems at this time. Patient requiring additional resources due to degree of malnutrition during hospital stay. Dietitian following with the following nutrition therapy plan: 1.) Ok to continue boost TID 2.) RDN to sign off, please consult as needed Medication Ordered/Consults/Labs/Tests Ordered: 07/18: Delirium precautions ordered. Seroquel ordered 100 mg QHS and 50 mg q4PRN. Zyprexa 5 PO mg vs10 mg IV - TID PRN if needed. UDS ordered. Will order high dosed Thiamine. Will order addiction consult. Gabapentin 300 mg TID ordered for withdrawal symptoms. 07/19: Increase quetiapine to 100mg TID. [employer] dose was 800mg qHS. UDS+ for amphetamines. 07/20: Will give Seroquel 200mg at bedtime this edil then combine doses / change dose to 400mg po qhs. Will titrate to [employer] dose of 800mg po qhs as tolerated / indicated. Hold Lexapro for now. He has not been consistently taking it. Increase Neurontin to 600mg po TID. Offer Zyprexa 10mg po BID PRN. Continue CIWA protocol w PRN Valium and PRN Clonidine. 07/21: Lidocaine patch daily. Medicine consult if [facility] is issued. 07/22: Medicine consult for chronic back pain management. Increase Seroquel to 500mg po qhs. D/c PRNMelatonin and replace w PRN Benadryl. 07/23: Increase Seroquel to 600mg po qhs. Per his request, change Flexeril 10mg from TID PRN to TID.Will avoid Requip for RLS as it could worsen his DC sxs. Instead, will increase Neurontin to 900mg po TID. Spiritual care consult ordered. 07/24: Advance Seroquel to 700mg po qhs. Add Trazodone 50mg po qhs + 50mg po qhs PRN. Changed Benadryl to PRN itching only as this could worsen RLS, if that is truly what he has. Will discuss the possibility of akathisia (vs RLS) tomorrow. 07/25: Increase Seroquel to his [employer] dose of 800mg po qhs. Add a 2nd Lidocaine patch. Maximize daily APAP dose by allowing a daily PRN dose to his TID scheduled APAP. Pain Management consult placed. Trial Cogentin 1mg po BID for possible akathisia. D/c PRN Benadryl as he has Trazodone available. D/c CIWA. 07/26: MONTEZ Burr, may consider non-cardioselective beta messi in place of Toprol (ie. Inderal) for better akathisia coverage if RLS symptoms do not improve with increased Gabapentin. 07/27: Desonide cream BID for dermatitis. 07/28: Scheduled Robaxin 750 mg hs per pt request. 07/29 -- : No change. 08/01: EKG 08/02 AM. Amitriptyline to 100 mg hs. 08/02-: No change 08/04: Consult Addiction medicine 08/05: Per addiction med Naltrexone 50 mg daily 08/06: No change 08/07: Recheck BMP in the AM 08/08: Labs reviewed. Creatinine elevated 1.24. Recheck BMP on 08/10. Discontinue Naltrexone and Motrin. 08/09: Resume APAP 1000mg po TID. Discharge appointments needed: PCP, Pain Medicine, Addiction Medicine (if pt is willing) Milieu Management: Admit to: [facility] Legal: >> >> SOC Acuity level: YELLOW Encouraged the patient to participate in unit activities. Level of Observation: No additional monitoring needed RE-CERTIFICATION & RISK ASSESSMENT The patient continues to need, on a daily basis, active inpatient psychiatric treatment for ongoingdiagnostic assessment and treatment of the following symptoms: AH, paranoia, substance withdrawal, and possible SI w possible SA prior to admission. The treatment can reasonably be expected to improve the patient's condition. Estimated length of stay is 30 days. Anticipated disposition: [facility] tx Risk Assessment: assault: Medium - paranoid Suicide Risk: Low Patient Strengths: willing to take medications This patient was also interviewed and examined by Dr. Crawley and the treatment plan was reviewed andagreed upon. Kristin Rutledge PA-C * Bossman Franco MD - 08/09/2023 9:12 AM CDT Addiction Medicine Progress Note This visit was [id number] Date of service: 08/09/2023 SUBJECTIVE: Patient last seen by me Jul 20 2023. Patient much more engaging and motivated for sobriety. Patient was admitted last month with syncopeand DUI. States he has the desire to be sober from both alcohol and methamphetamine. Agreeable to treatment. OBJECTIVE: BP (!) 145/94 (BP Cuff Size: Regular) Pulse 87 Temp 97.6 ??F (36.4 ??C) (Skin) Resp 16 Ht 6' 1 (1.854 m) Comment: per EHR Wt 90 kg (198 lb 6.4 oz) SpO2 100% BMI 26.18 kg/m?? Gen: NAD Head: ATNC Eyes: White sclera Pulm: breathing comfortably Neuro: grossly intact Psych: Sober, appropriate ASSESSMENT/PLAN: 1. Alcohol use disorder, severe: Recent DUI. Patient is agreeable to treatment. States that he is on a stay of commitment. Challenged him to throw himself into his recovery. Discussed strategies for sobriety. Discussed the benefit of recovery meetings. Currently tolerating naltrexone but states he does not want to continue it. We will continue at discharge. 2. Methamphetamine/benzodiazepine use disorder: Discussed benefits of recovery meetings. Discussed benefits of 90 days of sobriety. Agrees to follow-up in my clinic. Bossman Franco MD This note created using speech-recognition software and may contain unintended word substitutions. * Charlene Lee APRN, CNP - 08/09/2023 8:22 AM CDT [facility] Psychiatry Progress Note PATIENT NAME: Nicanor Alvarado DATE OF SERVICE: 08/09/2023 ATTENDING PRACTITIONER: Charlene Lee APRN, CNP HOSPITAL DAY # 20 CHIEF COMPLAINT subsequent inpatient psychiatric encounter INTERVAL HISTORY Nicanor Alvarado was seen along with the CONCRETE ENGINEERING TECHNICIAN-fellow. The pt reports his neck discomfort feels better this morning.He also he had a good sleep. Pt reported he was seen by MD from Addiction med and hewas the doctor that told me I will be in and year. He does not know what I need. He continuesNaltrexone is not a good med for him. Pt states he has been thinking about AA/NA. Last experience he recalls AA is for older people and NA is younger age group. He hope there are places within a few miles from home where he can attned NA as that's more important to him. Pt states that meth is now mixed with fentanyl and does not understand why meth can't be made legal. Discussed fentanyl and/or meth can be fatal and cause damaging effects to the brain. Pt later seen regarding lab results from earlier. Pt informed about elevated creatinine of 1.24. Will discontinue motrin. Encourage oral fluids. Pt requesting diclofenac and threatening that if his pain can not be manage by medical providers he will get if off line. Discussed the risk of online and ongoing concerns for his kidney. Pt states I rather have a bad kidney then live in pain. Inform pt will repeat lab and will continue to explore other options. REVIEW OF SYSTEMS Constitutional: did not endorse physical health concerns aside from as discussed above + chronic back pain Psychiatric: denied thoughts of self harm, SI, HI, AH, and/or VH; see above Medication side effects: none endorsed CHART REVIEW & MULTIDISCIPLINARY TEAM MEETING Met with the multidisciplinary treatment team and discussed care and treatment planning. RN Report: Pt has been out on the unit social with select peers. Pt was medication complaint. Pt requested Robaxin and Motrin for back pain first thing this morning. Pt declined Naltrexone stating he didn't need it. Pt talked in depth about all the surgery he has had. Stating he gets prednisone online for infl ammation. States no Doctor will put him on Opioids. SW Report: reviewed and discussed Group attendance and participation: 2/3 OT attended PRN medications: reviewed MAR OBJECTIVE Hours of Sleep: Patient Vitals for the past 72 hrs: Sleep Hours 08/09/23 0635 7.5 HOURS 08/08/23 2244 1.5 HOURS 08/08/23 1449 0.8 HOURS 08/08/23 0647 7 HOURS 08/07/23 2301 1.3 HOURS 08/07/23 1440 1 HOURS 08/07/23 0638 7.8 HOURS 08/06/23 2243 1 HOURS 08/06/23 1511 0.8 HOURS LABS: No results found for this or any previous visit (from the past 24 hour(s)). Current Facility-Administered Medications Medication Dose Route Frequency acetaminophen (TYLENOL) tablet 1,000 mg 1,000 mg Oral DAILY PRN amitriptyline (ELAVIL) tablet 100 mg 100 mg Oral At Bedtime amLODIPine (NORVASC) tablet 5 mg 5 mg Oral Daily aspirin chewable tablet 81 mg 81 mg Oral Daily atorvastatin (LIPITOR) tablet 20 mg 20 mg Oral Evening senna (SENOKOT) tablet 2 Tablet 2 Tablet Oral BID PRN And polyethylene glycol (MIRALAX) oral powder 17 g 17 g Oral DAILY PRN And bisacodyl (DULCOLAX) rectal suppository 10 mg 10 mg Rectal DAILY PRN calcium carbonate (TUMS) chewable tablet 1,000 mg 1,000 mg Oral Q4H PRN desonide (DESOWEN) 0.05 % cream Topical BID diclofenac (VOLTAREN) gel 2 g 2 g Topical QID PRN diphenhydrAMINE (BENADRYL) capsule 50 mg 50 mg Oral At Bedtime diphenhydrAMINE (BENADRYL) capsule 50 mg 50 mg Oral DAILY PRN folic acid tablet 1 mg 1 mg Oral Daily gabapentin (NEURONTIN) capsule 1,200 mg 1,200 mg Oral TID ibuprofen (MOTRIN) tablet 600 mg 600 mg Oral Q6H PRN lidocaine (ASPERCREAM) 4 % patch 2 Patch 2 Patch Transdermal Daily lidocaine (XYLOCAINE) 5 % ointment Topical TID PRN methocarbamol (ROBAXIN) tablet 750 mg 750 mg Oral TID PRN methocarbamol (ROBAXIN) tablet 750 mg 750 mg Oral At Bedtime metoprolol succinate (TOPROL XL) extended release tablet 25 mg 25 mg Oral Daily naltrexone (REVIA) tablet 50 mg 50 mg Oral Daily nicotine (COMMIT) lozenge 2 mg 2 mg Oral Q1H PRN Or nicotine (NICORETTE) gum 2 mg 2 mg Oral Q1H PRN OLANZapine (ZyPREXA ZYDIS) disintegrating tablet 10 mg 10 mg Oral BID PRN pantoprazole DR (PROTONIX) tablet 40 mg 40 mg Oral Daily at 6 am QUEtiapine (SEROquel) tablet 800 mg 800 mg Oral At Bedtime tamsulosin (FLOMAX) capsule 0.4 mg 0.4 mg Oral Daily after a meal thiamine (VITAMIN B-1) tablet 100 mg 100 mg Oral Daily Food intake: Amount of Diet Consumed (last 3 days) Date/Time Intake (%) 08/08/23 1700 100%;Dinner 08/08/23 1215 100%;Lunch 08/08/23 0824 100%;Breakfast 08/07/23 1732 100%;Dinner 08/07/23 1212 100%;Lunch 08/07/23 0839 100%;Breakfast 08/06/23 1813 100%;Dinner 08/06/23 1200 100%;Lunch 08/06/23 0823 100%;Breakfast ALLERGY Allergies Allergen Reactions Valproic Acid Other, see comments Excessive sedation Naltrexone Other, see comments Pt told RN he did not like it so he stopped taking it. MENTAL STATUS EXAM Filed Vitals: 08/07/23 1623 08/08/23 0800 08/08/23 1100 08/08/23 1613 BP: (!) 156/83 (!) 142/93 (!) 144/87 (!) 160/86 Pulse: 86 78 85 Resp: Temp: 98.5 ??F (36.9 ??C) 98.3 ??F (36.8 ??C) 97 ??F (36.1 ??C) TempSrc: Oral Skin Temporal Artery SpO2: 96% 97% 96% Weight: Height: Appearance: alert, intermittent eye contact, wearing scrubs, adequate grooming, appears older than stated age Behavior: engaged, needy, med seeking, more elevated and animated Motor: restless Gait and Station: unimpaired Speech: normal in rate, normal to loud in volume, hyper-verbal / over-inclusive Language: intact Thought process: largely linear Thought content: denied thoughts of self harm, SI, HI, +AH (but pleasant/encouraging), no VH; +paranoia re demons ? Associations: grossly intact Mood: sore but good Affect: neutral Orientation: grossly oriented Attention: intact Memory: impaired Insight: limited Judgment: poor CONSULTATION [facility], 07/24/23: Assessment / Recommendations Follow up on labs show creat 0.96, returned to normal range and resolved USAMA. K is 5.1 but sample hemolyzed. med consulted on 07/23/23 because of chronic back/neck/shoulder pain. To me, pt reports chronic low back, B/L hip, and shoulder pain. Frustrated that doctors will not prescribe him opioids, and that they recommend against diclofenac due to kidney issues. 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 Although from a kidney perspective it may be safe to use NSAIDs, danny for an acute/short term need,I still do not believe this is the best nursing home medication for this patient for pain control moreso because of his cardiac risks with longstanding HLD, HTN, age, gender. In several studies, NSAIDshave shown to further increase the risk for thrombotic CV events as well as bleeding events. He is on ASA and addition of NSAID will increase risk of GI bleeding, as well. No current red flag symptoms for neck/back/shoulder pain, actually appears more controlled than previously per patient's report/chart review. Plan: - gabapentin has been helpful - continue 600 mg TID - lidocaine patch lower back has been helpful - continue daily; also offer additional lidocaine patch for neck or shoulder pain if pt desires - tylenol 650 mg prn changed to 1000 mg TID scheduled - diclofenac gel ordered instead to use topically as less systemic absorption - Given patient's chronic difficult to control pain and his h/o of self medicating with meds he buys off internet, I do think it is important to find a pain regimen that will control pt's chronic pain in a meaningful way so that he is less likely to use the internet to buy pills that are not prescribed to him - given it is the weekend, pain team is not available, but would consider primary team consult them and/or send OP referral to pain clinic for patient at hospital discharge. Pain team was consulted during a previous admission in May 2023, but he was not interested in any options other than opioids at that time. He did not ask me about opioids during our visit, so I believe he may nowbe open to more options, perhaps even intraarticular injections for shoulder/hip/back pain. med will sign off. Please reach out with any questions/concerns. Orin Nelson PA-C PAIN MANAGEMENT, 07/25: TREATMENT RECOMMENDATIONS/PLAN: Increase gabapentin to 1200mg TID Elavil 50mg QHS for sleep and nerve pain Change flexeril to robaxin 750 mg QID PRN NSAIDS could be considered in the future. Overall high risk patient with severe substance use disorder Will add non-opioid adjuvants. I did talk to him about suboxone; since he doesn't have opioid use disorder, this would not be my first preference. However, I would avoid pure opioid agonists at this time. ASSESSMENT AND RECOMMENDATIONS DISCUSSED WITH: Kristin Rutledge PA-C Thank you for consulting the Inpatient Pain Management Service. Please contact me with any questions or concerns. Aaron Galicia M.D. Addiction Medicine 08/06/23: A/P from consult on 07/20/23 57 yo male c severe methamphetamine/alcohol/BZD use [...] -challenged him to follow through with treatment. Bossman Franco MD 08/06/2023, 12:58 PM IMPRESSION Nicanor Alvarado is a 57 y.o. male who has been admitted to station [facility] for AH, paranoia, substance withdrawal, and possible [...] his room over the weekend. Admitted to [facility]: 07/20: Restless on exam. Reported +AH and +paranoia (under investigation - which he is starting toquestion as the truth). Less disorganized as compared to when on Medicine. He said he was not really sure about the events [employer]. He drinks alcohol heavily, nearly 3L of [place] rum per week. He has been prescribed Lexapro, but he is not consistent w taking it. Sometimes I need more, referring to self medicating. He used methamphetamine [employer]. He said he has +AH at his baseline, but while using methamphetamine, the +AH escalated and, it got bad. Someone could have . It all seemed so real. He said he began to think that he would be better off if he just used all of the methamph etamine, so he used some IV. His paranoia escalated and he began to feel like someone was going to come through his door, so I ate the rest of the bag b/c I thought I would need the rage and energy to fight them off. Guarded at times. Hesitantly, he denied having SI and he denied the [employer] event asa SA. 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 When initially in the ED, he reported +SI (also while on Medicine) and, when questioned about ingestion, he replied w not enough. Per chart review from the 05/2023 Medicine admission (admitted for erratic driving / legal blood draw, while in the ED he had a syncopal episode and required Medicine admission then transfer to [facility]): He reports that he had about 2 hospitalizations in the past month. One in [facility] (04/24/2022) for acute toxic encephalopathy, drug overdose (cannabinoids, methamphetamine), and alcohol withdrawal w/ delirium tremens which required large amount of benzo. He says he had another hospitalization in [place]. He reports that one of these hospitalizations led to ICU stay and he was told that his kidney were failing, but no detailed records of outside hospital stay are available on admission. 07/21: Restless, argumentative, anxious, irritable, and illogical. He is agreeable to [facility] tx, especially to access psychotherapy, knowing it will likely eventually be court ordered. However, he also stated that he has no intentions of quitting alcohol all together, but only cutting back, b/c of his chronic pain. Additionally, he is unwilling to stay in the hospital beyond his 72h hold, in order tofacilitate a door to door transfer to [facility] tx. He was educated on his risk of relapse and reminded of his recent hospitalizations, related to use / overdosing. Pt was reminded that he himself stated someone could have in relation to the events prior to this admission. He does not see his drinking as a problem, stating, I don't drive. Manager Convention noted that he recently missed a court date for aDUI charge and, last hospitalization here, he was brought here for a legal blood draw after being stopped for erratic driving. When asked about the pill bottles that were scattered around him, when found [employer], he could not give an explanation. Will file a petition for civil commitment. 07/22: Quite tense, irritable, and rude on approach. Said he wants to d/c directly to [facility] he suspects there must be a bench warrant issued for his arrest d/t missing a DUI court date a few weeks back. He slept better, but asked for PRN Benadryl instead of PRN Melatonin. Thought processwas linear. No overt paranoia. Reported +AH last edil. [facility] is supporting petition for commitment. 07/23: He is frustrated w not being able to access an opioid or Voltaren for his chronic pain. He has no insight into risk / benefit considerations. He is resistant to any treatment that takes more effort than popping a pill. He reluctantly agreed to a pain medicine consult. He was noted to be diaphoretic, but has not been scoring high enough on CIWA to warrant PRN BZD. He talked at length about his oldest son's by hanging and about how he has struggled in the aftermath and has failed to adequately support his second son over the years. His second son has attempted suicide numerous timesand is currently in [facility] tx. He added, I must before him. The pt talked about his hinduism bel iefs, about not believing in suicide, but having come to the conclusion that even someone who does not believe in suicide can get to the point of attempting suicide. He denied thoughts of self harm, SI, HI, and VH. He reported +AH and +tactile hallucinations >> hypnagogic-like. Affect was anxious, tense, and irritable. 07/24: No diaphoresis today. Using PRNs for sleep. Denied further AH, VH, or tactile hallucinations.(However, his report of hallucinations varies from person to person.) Agreeable to med trials for various concerns, but tends to want to immediately jump to large doses. Anxious, intense at times, and restless. Thought process is largely linear. Denied SI / HI. He mentioned this hospitalization as the 4th time he's been in the ICU in as many months. 07/25: More elevated, animated, intense, and irritable. Continues restless. Med seeking - more of (to include opioids, BZD, and now stimulants, but also other more benign meds) - and wanting to go straight to high doses. He is a very inconsistent historian w details changing from day to day, person to person. Memory impairment is noted. He noted that he did not trash his kidneys as badly prior to this admission as compared to his other 3 recent admissions. He minimized the significance of his past renal injury and dismissed the warnings he has received by healthcare professionals re the risks to his vital organs. He called them over-dramatic. Denied AH / SI. +Paranoia re demons? Hyper-verbal. 07/26: Continued fixation on medications, feels he is in need of something additional for both pain and sleep -- pt offers diclofenac and Xanax as effective interventions, but understanding when web content writer offered renal concerns with diclofenac and habit-forming tendencies with Xanax. Pt hopeful for Benadryl for sleep which was agreed upon. Discussed Gabapentin additionally as options for both pain, sleep and RLS. 07/27: Less intense, irritable than yesterday and reporting sufficient sleep for the first time in years. Generally fixated on pain, medication options in case things fail down the road during current hospitalization. Apart from this, pt occasionally offers comments about how Xanax and opiate medications would simplify my long med list, but redirectable. 07/28: Largely unchanged, though briefly frustrated with not having Robaxin scheduled. Will do so moving forward per his request. Feels ready for CD referrals, aware that final commitment hearing is not until next week. 07/29: Planning out possible medication changes on a daily basis, frequently asks what next step is if certain medications do not work for him long-term, additionally routes interview back to discussion of pain/diclofenac several times throughout interaction. Very focused on medication regimen schedule. 07/30: Continued fixation on possible medication options moving forward, today mostly surrounding safety profile of medications with alcohol use. Additionally reported voices over the last couple of days, previously withheld from treatment team as he thought this would result in Seroquel being takenaway. 07/31: Unchanged; required. Fran last night for sleep, had difficulty sleeping through the night for 1st time in several days. Agreed to keep medications as are for now, revisit sleep augmentation if issues persist. Otherwise, no changes. 08/01: Persistent request to have suicidal ideation/status clarified by current team, fearful of having this label carried over into time at treatment. Otherwise, reported worse sleep for the past twodays and would appreciate increase in amitriptyline which web content writer agreed to. 08/02: Pt calm, cooperative and medication compliant. Denies psych symptoms. He reports being in agreement with need for CD treatment but argues 3 months is too long as he is the primary provider for his adult son who also struggles with alcohol use/abuse. Discussed benefits for in-patient and hopefully pt will be able to help his son through addiction but the pt argues other james. He believes hisproblem is not meth rather alcohol and he can limit himself. Pt is argumentative and has no insighton dangerous behaviors poses increased risk. Reports adequate sleep since admission. 08/03: Stressed, anxious about court hearing tomorrow. Anticipates he will be committed but does notlike the language as it seems forceful rather then voluntary. Discussed CD tx options and support systems as he work to archived sobriety. Motivated to seek help so as to help his son. Report good sleep the past nights. Requested his records be doctored for suicide because he was never suicidal and does not want belongings taken away when he gets to treatment. 08/04: Mixed of emotions today. Pt had courts earlier today and is excited he was given a SOC as it gives him more options and means of helping his son as well. Pt continued to express committment to CD treatment. He hopes he and son can team up and do AA together. Reports adequate sleep at night. Denies psych symptoms. Re-consulted addiction medicine as the pt is more open to discussion/medication assisted treatment. 08/05: Improved mood. Pt is more open-minded to recommendations regarding treatment. He reports improve sleep on current regimen. He hoes that continues. Discussed sleep hygiene, recommended CBT-I forongoing insomnia. 08/06: Continue to have good sleep. Remains committed to CD tx and then AA but opposed to MAT. Pt wasseen by Addiction med and he was started on Naltrexone. Pt is refusing med stating he does not need it. He is minimizing his alcohol and stating he can self limit his alcohol usage. Shows limited insight into his addiction. Using Zyprexa PRN almost every night to resume sleep which has been effective. Will continue to evaluate the need for scheduled Zyprexa as pt denies psych symptoms. Pt was seen by spiritual care and that has helped improved his mood. 08/07: Pt is feeling sore but otherwise good. Reports adequate sleep despite some interruption during the night. Pt requesting diclofenac oral instead of the gel for chronic pain. Chart review showedconsult from pain med and med hold off on diclofenac due to concerns for kidney issues however creatinine (07/22 was 0.96) has normalized. Will reach out to pain management to see if it is appropriate to add diclofenac and d/c motrin due to significant chronic pain history. Pt case is challengingas he is determined to resolve to getting his meds from online sources. 08/08: Calm and cooperative. Refused Naltrxone so it was discontinued. Lab draw showed elevated creatinine levels of 1.24. Will plan to repeat lab on 08/10. Remains fixated on pain management. DIAGNOSES & PLAN Principal Psychiatric / Substance Use Diagnoses: - encephalopathy s/p ingestion: improved - bipolar disorder w psychosis vs SCAD by hx - r/o substance induced psychosis - alcohol use disorder, severe - methamphetamine use disorder, severe - BZD use disorder, severe - alcohol / BZD withdrawal Medical Concerns to be addressed: - USAMA: resolved - ?element of CKD? - mild rhabdomyolysis: improved - chronic back pain: see Medicine consult - HTN: restarted [employer] medications - GERD: restarted PPI - HLD: restarted statin - LUTS: flomax - Patient with moderate malnutrition in the context of social/environmental circumstances during hospital stay and remains with no acute or chronic nutrition problems at this time. Patient requiring additional resources due to degree of malnutrition during hospital stay. Dietitian following with the following nutrition therapy plan: 1.) Ok to continue boost TID 2.) RDN to sign off, please consult as needed Medication Ordered/Consults/Labs/Tests Ordered: 07/18: Delirium precautions ordered. Seroquel ordered 100 mg QHS and 50 mg q4PRN. Zyprexa 5 PO mg vs10 mg IV - TID PRN if needed. UDS ordered. Will order high dosed Thiamine. Will order addiction consult. Gabapentin 300 mg TID ordered for withdrawal symptoms. 07/19: Increase quetiapine to 100mg TID. [employer] dose was 800mg qHS. UDS+ for amphetamines. 07/20: Will give Seroquel 200mg at bedtime this edil then combine doses / change dose to 400mg po qhs. Will titrate to [employer] dose of 800mg po qhs as tolerated / indicated. Hold Lexapro for now. He has not been consistently taking it. Increase Neurontin to 600mg po TID. Offer Zyprexa 10mg po BID PRN. Continue CIWA protocol w PRN Valium and PRN Clonidine. 07/21: Lidocaine patch daily. Medicine consult if [facility] is issued. 07/22: Medicine consult for chronic back pain management. Increase Seroquel to 500mg po qhs. D/c PRNMelatonin and replace w PRN Benadryl. 07/23: Increase Seroquel to 600mg po qhs. Per his request, change Flexeril 10mg from TID PRN to TID.Will avoid Requip for RLS as it could worsen his DC sxs. Instead, will increase Neurontin to 900mg po TID. Spiritual care consult ordered. 07/24: Advance Seroquel to 700mg po qhs. Add Trazodone 50mg po qhs + 50mg po qhs PRN. Changed Benadryl to PRN itching only as this could worsen RLS, if that is truly what he has. Will discuss the possibility of akathisia (vs RLS) tomorrow. 07/25: Increase Seroquel to his [employer] dose of 800mg po qhs. Add a 2nd Lidocaine patch. Maximize daily APAP dose by allowing a daily PRN dose to his TID scheduled APAP. Pain Management consult placed. Trial Cogentin 1mg po BID for possible akathisia. D/c PRN Benadryl as he has Trazodone available. D/c CIWA. 07/26: DC Aminah, may consider non-cardioselective beta messi in place of Toprol (ie. Inderal) for better akathisia coverage if RLS symptoms do not improve with increased Gabapentin. 07/27: Desonide cream BID for dermatitis. 07/28: Scheduled Robaxin 750 mg hs per pt request. 07/29 -- : No change. 08/01: EKG 08/02 AM. Amitriptyline to 100 mg hs. 08/02-: No change 08/04: Consult Addiction medicine 08/05: Per addiction med Naltrexone 50 mg daily 08/06: No change 08/07: Recheck BMP in the AM 08/08: Labs reviewed. Creatinine elevated 1.24. Recheck BMP on 08/10. Discontinue Naltrexone and motrin Milieu Management: Admit to: [facility] Legal: >> >>>SOC (08/05). Acuity level: Yellow Encouraged the patient to participate in unit activities. Level of Observation: No additional monitoring needed RE-CERTIFICATION & RISK ASSESSMENT The patient continues to need, on a daily basis, active inpatient psychiatric treatment for ongoingdiagnostic assessment and treatment of the following symptoms: AH, paranoia, substance withdrawal, and possible SI w possible SA prior to admission. The treatment can reasonably be expected to improve the patient's condition. Estimated length of stay is 14 days. Anticipated disposition: home vs care home vs [facility] tx Risk Assessment: assault: Medium - paranoid Suicide Risk: Low Patient Strengths: willing to take medications Patient was additionally evaluated in person by Dr. Hatch, who agrees with the above documentation and plan. Charlene Lee APRN, [facility] [facility] * Becca Walker RN - 08/09/2023 8:00 AM CDT Pt has been out on the unit social with select peers. Pt was medication complaint. Pt requested Robaxin and Motrin for back pain first thing this morning. Pt declined Naltrexone stating he didn't need it. Pt upset that his Mortin d/c'd stating he's going to a pain clinic to get on opioids when he'sout of here. * Charlene Lee APRN, CNP - 08/08/2023 9:53 AM CDT [facility] Psychiatry Progress Note PATIENT NAME: Nicanor Alvarado DATE OF SERVICE: 08/08/2023 ATTENDING PRACTITIONER: Charlene Lee APRN, CNP HOSPITAL DAY # 19 CHIEF COMPLAINT subsequent inpatient psychiatric encounter INTERVAL HISTORY Nicanor Alvarado was seen in the dinning room alongside the psychiatrist. Pt reports he is feelingsore but otherwise good. Discussed non-pharmacological options which pt agreed will try the ice pack. He shares he has already taken all hs PRNs that are currently available. He state the only thing that has been helpful on the nursing home is the Diclofenac. He is currently on the diclofenac gel but does not find it effective in comparison to the pill and he does not like the application of gel on most of his body. Promised to review his med list and update him on the plan. He is open to the idea of d/c motrin in place of diclofenac. Pt report his sleep was interrupted briefly last night but overall had a good night. He denies psych symptoms. REVIEW OF SYSTEMS Constitutional: did not endorse physical health concerns aside from as discussed above + chronic back pain Psychiatric: denied thoughts of self harm, SI, HI, AH, and/or VH; see above Medication side effects: none endorsed CHART REVIEW & MULTIDISCIPLINARY TEAM MEETING Met with the multidisciplinary treatment team and discussed care and treatment planning. RN Report: Subjective: N/A Objective: Patient appeared to have slept for more than 5 hours with no incident. 15 minutes security checks ongoing, breathing nonlabored. Patient received PRN Benadryl, Olanzapine and Methocarbamol at 0100 per request. SW Report: reviewed and discussed Group attendance and participation: 1/2 OT attended PRN medications: reviewed MAR OBJECTIVE Hours of Sleep: Patient Vitals for the past 72 hrs: Sleep Hours 08/08/23 0647 7 HOURS 08/07/23 2301 1.3 HOURS 08/07/23 1440 1 HOURS 08/07/23 0638 7.8 HOURS 08/06/23 2243 1 HOURS 08/06/23 1511 0.8 HOURS 08/06/23 0630 6.5 HOURS 08/05/23 2242 1.5 HOURS 08/05/23 1415 0.8 HOURS LABS: No results found for this or any previous visit (from the past 24 hour(s)). Current Facility-Administered Medications Medication Dose Route Frequency acetaminophen (TYLENOL) tablet 1,000 mg 1,000 mg Oral DAILY PRN amitriptyline (ELAVIL) tablet 100 mg 100 mg Oral At Bedtime amLODIPine (NORVASC) tablet 5 mg 5 mg Oral Daily aspirin chewable tablet 81 mg 81 mg Oral Daily atorvastatin (LIPITOR) tablet 20 mg 20 mg Oral Evening senna (SENOKOT) tablet 2 Tablet 2 Tablet Oral BID PRN And polyethylene glycol (MIRALAX) oral powder 17 g 17 g Oral DAILY PRN And bisacodyl (DULCOLAX) rectal suppository 10 mg 10 mg Rectal DAILY PRN calcium carbonate (TUMS) chewable tablet 1,000 mg 1,000 mg Oral Q4H PRN desonide (DESOWEN) 0.05 % cream Topical BID diclofenac (VOLTAREN) gel 2 g 2 g Topical QID PRN diphenhydrAMINE (BENADRYL) capsule 50 mg 50 mg Oral At Bedtime diphenhydrAMINE (BENADRYL) capsule 50 mg 50 mg Oral DAILY PRN folic acid tablet 1 mg 1 mg Oral Daily gabapentin (NEURONTIN) capsule 1,200 mg 1,200 mg Oral TID ibuprofen (MOTRIN) tablet 600 mg 600 mg Oral Q6H PRN lidocaine (ASPERCREAM) 4 % patch 2 Patch 2 Patch Transdermal Daily lidocaine (XYLOCAINE) 5 % ointment Topical TID PRN methocarbamol (ROBAXIN) tablet 750 mg 750 mg Oral TID PRN methocarbamol (ROBAXIN) tablet 750 mg 750 mg Oral At Bedtime metoprolol succinate (TOPROL XL) extended release tablet 25 mg 25 mg Oral Daily naltrexone (REVIA) tablet 50 mg 50 mg Oral Daily nicotine (COMMIT) lozenge 2 mg 2 mg Oral Q1H PRN Or nicotine (NICORETTE) gum 2 mg 2 mg Oral Q1H PRN OLANZapine (ZyPREXA ZYDIS) disintegrating tablet 10 mg 10 mg Oral BID PRN pantoprazole DR (PROTONIX) tablet 40 mg 40 mg Oral Daily at 6 am QUEtiapine (SEROquel) tablet 800 mg 800 mg Oral At Bedtime tamsulosin (FLOMAX) capsule 0.4 mg 0.4 mg Oral Daily after a meal thiamine (VITAMIN B-1) tablet 100 mg 100 mg Oral Daily Food intake: Amount of Diet Consumed (last 3 days) Date/Time Intake (%) 08/08/23 0824 100%;Breakfast 08/07/23 1732 100%;Dinner 08/07/23 1212 100%;Lunch 08/07/23 0839 100%;Breakfast 08/06/23 1813 100%;Dinner 08/06/23 1200 100%;Lunch 08/06/23 0823 100%;Breakfast 08/05/23 1734 100%;Dinner 08/05/23 1200 100%;Lunch 08/05/23 0820 Breakfast;100% ALLERGY Allergies Allergen Reactions Valproic Acid Other, see comments Excessive sedation Naltrexone Other, see comments Pt told RN he did not like it so he stopped taking it. MENTAL STATUS EXAM Filed Vitals: 08/06/23 1637 08/07/23 0900 08/07/23 1623 08/08/23 0800 BP: (!) 145/90 (!) 148/94 (!) 156/83 (!) 142/93 Pulse: 89 88 86 78 Resp: 16 16 18 Temp: 98.7 ??F (37.1 ??C) 98.4 ??F (36.9 ??C) 98.5 ??F (36.9 ??C) 98.3 ??F (36.8 ??C) TempSrc: Skin Skin Oral Skin SpO2: 98% 99% 96% 97% Weight: Height: Appearance: alert, intermittent eye contact, wearing scrubs, adequate grooming, appears older than stated age Behavior: engaged, needy, med seeking, more elevated and animated Motor: restless Gait and Station: unimpaired Speech: normal in rate, normal to loud in volume, hyper-verbal / over-inclusive Language: intact Thought process: largely linear Thought content: denied thoughts of self harm, SI, HI, +AH (but pleasant/encouraging), no VH; +paranoia re demons ? Associations: grossly intact Mood: sore but good Affect: neutral Orientation: grossly oriented Attention: intact Memory: impaired Insight: limited Judgment: poor CONSULTATION [facility], 07/24/23: Assessment / Recommendations Follow up on labs show creat 0.96, returned to normal range and resolved USAMA. K is 5.1 but sample hemolyzed. med consulted on 07/23/23 because of chronic back/neck/shoulder pain. To me, pt reports chronic low back, B/L hip, and shoulder pain. Frustrated that doctors will not prescribe him opioids, and that they recommend against diclofenac due to kidney issues. 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 In several studies, NSAIDshave shown to further increase the risk for thrombotic CV events as well as bleeding events. He is on ASA and addition of NSAID will increase risk of GI bleeding, as well. No current red flag symptoms for neck/back/shoulder pain, actually appears more controlled than previously per patient's report/chart review. Plan: - gabapentin has been helpful - continue 600 mg TID - lidocaine patch lower back has been helpful - continue daily; also offer additional lidocaine patch for neck or shoulder pain if pt desires - tylenol 650 mg prn changed to 1000 mg TID scheduled - diclofenac gel ordered instead to use topically as less systemic absorption - Given patient's chronic difficult to control pain and his h/o of self medicating with meds he buys off internet, I do think it is important to find a pain regimen that will control pt's chronic pain in a meaningful way so that he is less likely to use the internet to buy pills that are not prescribed to him - given it is the weekend, pain team is not available, but would consider primary team consult them and/or send OP referral to pain clinic for patient at hospital discharge. Pain team was consulted during a previous admission in May 2023, but he was not interested in any options other than opioids at that time. He did not ask me about opioids during our visit, so I believe he may nowbe open to more options, perhaps even intraarticular injections for shoulder/hip/back pain. [employer] will sign off. Please reach out with any questions/concerns. Orin Nelson PA-C PAIN MANAGEMENT, 07/25: TREATMENT RECOMMENDATIONS/PLAN: Increase gabapentin to 1200mg TID Elavil 50mg QHS for sleep and nerve pain Change flexeril to robaxin 750 mg QID PRN NSAIDS could be considered in the future. Overall high risk patient with severe substance use disorder Will add non-opioid adjuvants. I did talk to him about suboxone; since he doesn't have opioid use disorder, this would not be my first preference. However, I would avoid pure opioid agonists at this time. ASSESSMENT AND RECOMMENDATIONS DISCUSSED WITH: Kristin Rutledge PA-C Thank you for consulting the Inpatient Pain Management Service. Please contact me with any questions or concerns. Aaron Galicia M.D. Addiction Medicine 08/06/23: A/P from consult on 07/20/23 57 yo male c severe methamphetamine/alcohol/BZD use [...] -challenged him to follow through with treatment. Bossman Franco MD 08/06/2023, 12:58 PM IMPRESSION Nicanor Alvarado is a 57 y.o. male who has been admitted to station [facility] for AH, paranoia, substance withdrawal, and possible [...] his room over the weekend. Admitted to [facility]: 07/20: Restless on exam. Reported +AH and +paranoia (under investigation - which he is starting toquestion as the truth). Less disorganized as compared to when on Medicine. He said he was not really sure about the events [employer]. He drinks alcohol heavily, nearly 3L of [place] rum per week. He has been prescribed Lexapro, but he is not consistent w taking it. Sometimes I need more, referring to self medicating. He used methamphetamine [employer]. He said he has +AH at his baseline, but while using methamphetamine, the +AH escalated and, it got bad. Someone could have . It all seemed so real. He said he began to think that he would be better off if he just used all of the methamph etamine, so he used some IV. His paranoia escalated and he began to feel like someone was going to come through his door, so I ate the rest of the bag b/c I thought I would need the rage and energy to fight them off. Guarded at times. Hesitantly, he denied having SI and he denied the [employer] event asa SA. 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 When initially in the ED, he reported +SI (also while on Medicine) and, when questioned about ingestion, he replied w not enough. Per chart review from the 05/2023 Medicine admission (admitted for erratic driving / legal blood draw, while in the ED he had a syncopal episode and required Medicine admission then transfer to [facility]): He reports that he had about 2 hospitalizations in the past month. One in [facility] (04/24/2022) for acute toxic encephalopathy, drug overdose (cannabinoids, methamphetamine), and alcohol withdrawal w/ delirium tremens which required large amount of benzo. He says he had another hospitalization in [place]. He reports that one of these hospitalizations led to ICU stay and he was told that his kidney were failing, but no detailed records of outside hospital stay are available on admission. 07/21: Restless, argumentative, anxious, irritable, and illogical. He is agreeable to [facility] tx, especially to access psychotherapy, knowing it will likely eventually be court ordered. However, he also stated that he has no intentions of quitting alcohol all together, but only cutting back, b/c of his chronic pain. Additionally, he is unwilling to stay in the hospital beyond his 72h hold, in order tofacilitate a door to door transfer to [facility] tx. He was educated on his risk of relapse and reminded of his recent hospitalizations, related to use / overdosing. Pt was reminded that he himself stated someone could have in relation to the events prior to this admission. He does not see his drinking as a problem, stating, I don't drive. Manager Convention noted that he recently missed a court date for aDUI charge and, last hospitalization here, he was brought here for a legal blood draw after being stopped for erratic driving. When asked about the pill bottles that were scattered around him, when found [employer], he could not give an explanation. Will file a petition for civil commitment. 07/22: Quite tense, irritable, and rude on approach. Said he wants to d/c directly to [facility] he suspects there must be a bench warrant issued for his arrest d/t missing a DUI court date a few weeks back. He slept better, but asked for PRN Benadryl instead of PRN Melatonin. Thought processwas linear. No overt paranoia. Reported +AH last edil. [facility] is supporting petition for commitment. 07/23: He is frustrated w not being able to access an opioid or Voltaren for his chronic pain. He has no insight into risk / benefit considerations. He is resistant to any treatment that takes more effort than popping a pill. He reluctantly agreed to a pain medicine consult. He was noted to be diaphoretic, but has not been scoring high enough on CIWA to warrant PRN BZD. He talked at length about his oldest son's by hanging and about how he has struggled in the aftermath and has failed to adequately support his second son over the years. His second son has attempted suicide numerous timesand is currently in [facility] tx. He added, I must before him. The pt talked about his hinduism bel iefs, about not believing in suicide, but having come to the conclusion that even someone who does not believe in suicide can get to the point of attempting suicide. He denied thoughts of self harm, SI, HI, and VH. He reported +AH and +tactile hallucinations >> hypnagogic-like. Affect was anxious, tense, and irritable. 07/24: No diaphoresis today. Using PRNs for sleep. Denied further AH, VH, or tactile hallucinations.(However, his report of hallucinations varies from person to person.) Agreeable to med trials for various concerns, but tends to want to immediately jump to large doses. Anxious, intense at times, and restless. Thought process is largely linear. Denied SI / HI. He mentioned this hospitalization as the 4th time he's been in the ICU in as many months. 07/25: More elevated, animated, intense, and irritable. Continues restless. Med seeking - more of (to include opioids, BZD, and now stimulants, but also other more benign meds) - and wanting to go straight to high doses. He is a very inconsistent historian w details changing from day to day, person to person. Memory impairment is noted. He noted that he did not trash his kidneys as badly prior to this admission as compared to his other 3 recent admissions. He minimized the significance of his past renal injury and dismissed the warnings he has received by healthcare professionals re the risks to his vital organs. He called them over-dramatic. Denied AH / SI. +Paranoia re demons? Hyper-verbal. 07/26: Continued fixation on medications, feels he is in need of something additional for both pain and sleep -- pt offers diclofenac and Xanax as effective interventions, but understanding when web content writer offered renal concerns with diclofenac and habit-forming tendencies with Xanax. Pt hopeful for Benadryl for sleep which was agreed upon. Discussed Gabapentin additionally as options for both pain, sleep and RLS. 07/27: Less intense, irritable than yesterday and reporting sufficient sleep for the first time in years. Generally fixated on pain, medication options in case things fail down the road during current hospitalization. Apart from this, pt occasionally offers comments about how Xanax and opiate medications would simplify my long med list, but redirectable. 07/28: Largely unchanged, though briefly frustrated with not having Robaxin scheduled. Will do so moving forward per his request. Feels ready for CD referrals, aware that final commitment hearing is not until next week. 07/29: Planning out possible medication changes on a daily basis, frequently asks what next step is if certain medications do not work for him long-term, additionally routes interview back to discussion of pain/diclofenac several times throughout interaction. Very focused on medication regimen schedule. 07/30: Continued fixation on possible medication options moving forward, today mostly surrounding safety profile of medications with alcohol use. Additionally reported voices over the last couple of days, previously withheld from treatment team as he thought this would result in Seroquel being takenaway. 07/31: Unchanged; required. Fran last night for sleep, had difficulty sleeping through the night for 1st time in several days. Agreed to keep medications as are for now, revisit sleep augmentation if issues persist. Otherwise, no changes. 08/01: Persistent request to have suicidal ideation/status clarified by current team, fearful of having this label carried over into time at treatment. Otherwise, reported worse sleep for the past twodays and would appreciate increase in amitriptyline which web content writer agreed to. 08/02: Pt calm, cooperative and medication compliant. Denies psych symptoms. He reports being in agreement with need for CD treatment but argues 3 months is too long as he is the primary provider for his adult son who also struggles with alcohol use/abuse. Discussed benefits for in-patient and hopefully pt will be able to help his son through addiction but the pt argues other james. He believes hisproblem is not meth rather alcohol and he can limit himself. Pt is argumentative and has no insighton dangerous behaviors poses increased risk. Reports adequate sleep since admission. 08/03: Stressed, anxious about court hearing tomorrow. Anticipates he will be committed but does notlike the language as it seems forceful rather then voluntary. Discussed CD tx options and support systems as he work to archived sobriety. Motivated to seek help so as to help his son. Report good sleep the past nights. Requested his records be doctored for suicide because he was never suicidal and does not want belongings taken away when he gets to treatment. 08/04: Mixed of emotions today. Pt had courts earlier today and is excited he was given a SOC as it gives him more options and means of helping his son as well. Pt continued to express committment to CD treatment. He hopes he and son can team up and do AA together. Reports adequate sleep at night. Denies psych symptoms. Re-consulted addiction medicine as the pt is more open to discussion/medication assisted treatment. 08/05: Improved mood. Pt is more open-minded to recommendations regarding treatment. He reports improve sleep on current regimen. He hoes that continues. Discussed sleep hygiene, recommended CBT-I forongoing insomnia. 08/06: Continue to have good sleep. Remains committed to CD tx and then AA but opposed to MAT. Pt wasseen by Addiction med and he was started on Naltrexone. Pt is refusing med stating he does not need it. He is minimizing his alcohol and stating he can self limit his alcohol usage. Shows limited insight into his addiction. Using Zyprexa PRN almost every night to resume sleep which has been effective. Will continue to evaluate the need for scheduled Zyprexa as pt denies psych symptoms. Pt was seen by spiritual care and that has helped improved his mood. 08/07: Pt is feeling sore but otherwise good. Reports adequate sleep despite some interruption during the night. Pt requesting diclofenac oral instead of the gel for chronic pain. Chart review showedconsult from pain med and med hold off on diclofenac due to concerns for kidney issues however creatinine (07/22 was 0.96) has normalized. Will reach out to pain management to see if it is appropriate to add diclofenac and d/c motrin due to significant chronic pain history. Pt case is challengingas he is determined to resolve to getting his meds from online sources. DIAGNOSES & PLAN Principal Psychiatric / Substance Use Diagnoses: - encephalopathy s/p ingestion: improved - bipolar disorder w psychosis vs SCAD by hx - r/o substance induced psychosis - alcohol use disorder, severe - methamphetamine use disorder, severe - BZD use disorder, severe - alcohol / BZD withdrawal Medical Concerns to be addressed: - USAMA: resolved - ?element of CKD? - mild rhabdomyolysis: improved - chronic back pain: see Medicine consult - HTN: restarted [employer] medications - GERD: restarted PPI - HLD: restarted statin - LUTS: flomax - Patient with moderate malnutrition in the context of social/environmental circumstances during hospital stay and remains with no acute or chronic nutrition problems at this time. Patient requiring additional resources due to degree of malnutrition during hospital stay. Dietitian following with the following nutrition therapy plan: 1.) Ok to continue boost TID 2.) RDN to sign off, please consult as needed Medication Ordered/Consults/Labs/Tests Ordered: 07/18: Delirium precautions ordered. Seroquel ordered 100 mg QHS and 50 mg q4PRN. Zyprexa 5 PO mg vs10 mg IV - TID PRN if needed. UDS ordered. Will order high dosed Thiamine. Will order addiction consult. Gabapentin 300 mg TID ordered for withdrawal symptoms. 07/19: Increase quetiapine to 100mg TID. [employer] dose was 800mg qHS. UDS+ for amphetamines. 07/20: Will give Seroquel 200mg at bedtime this edil then combine doses / change dose to 400mg po qhs. Will titrate to [employer] dose of 800mg po qhs as tolerated / indicated. Hold Lexapro for now. He has not been consistently taking it. Increase Neurontin to 600mg po TID. Offer Zyprexa 10mg po BID PRN. Continue CIWA protocol w PRN Valium and PRN Clonidine. 07/21: Lidocaine patch daily. Medicine consult if [facility] is issued. 07/22: Medicine consult for chronic back pain management. Increase Seroquel to 500mg po qhs. D/c PRNMelatonin and replace w PRN Benadryl. 07/23: Increase Seroquel to 600mg po qhs. Per his request, change Flexeril 10mg from TID PRN to TID.Will avoid Requip for RLS as it could worsen his DC sxs. Instead, will increase Neurontin to 900mg po TID. Spiritual care consult ordered. 07/24: Advance Seroquel to 700mg po qhs. Add Trazodone 50mg po qhs + 50mg po qhs PRN. Changed Benadryl to PRN itching only as this could worsen RLS, if that is truly what he has. Will discuss the possibility of akathisia (vs RLS) tomorrow. 07/25: Increase Seroquel to his [employer] dose of 800mg po qhs. Add a 2nd Lidocaine patch. Maximize daily APAP dose by allowing a daily PRN dose to his TID scheduled APAP. Pain Management consult placed. Trial Cogentin 1mg po BID for possible akathisia. D/c PRN Benadryl as he has Trazodone available. D/c CIWA. 07/26: DC Aminah, may consider non-cardioselective beta messi in place of Toprol (ie. Inderal) for better akathisia coverage if RLS symptoms do not improve with increased Gabapentin. 07/27: Desonide cream BID for dermatitis. 07/28: Scheduled Robaxin 750 mg hs per pt request. 07/29 -- : No change. 08/01: EKG 08/02 AM. Amitriptyline to 100 mg hs. 08/02-: No change 08/04: Consult Addiction medicine 08/05: Per addiction med Naltrexone 50 mg daily 08/06: No change 08/07: Recheck BMP in the AM Milieu Management: Admit to: [facility] Legal: >> >>>SOC (08/05). Acuity level: Yellow Encouraged the patient to participate in unit activities. Level of Observation: No additional monitoring needed RE-CERTIFICATION & RISK ASSESSMENT The patient continues to need, on a daily basis, active inpatient psychiatric treatment for ongoingdiagnostic assessment and treatment of the following symptoms: AH, paranoia, substance withdrawal, and possible SI w possible SA prior to admission. The treatment can reasonably be expected to improve the patient's condition. Estimated length of stay is 14 days. Anticipated disposition: home vs care home vs [facility] tx Risk Assessment: assault: Medium - paranoid Suicide Risk: Low Patient Strengths: willing to take medications Patient was additionally evaluated in person by Dr. Hatch, who agrees with the above documentation and plan. Charlene Lee APRN, JENNY * Becca Walker RN - 08/08/2023 8:53 AM CDT Pt has been out on the unit social with select peers. Pt was medication complaint. Pt requested Robaxin and Motrin for back pain first thing this morning. Pt declined Naltrexone stating he didn't need it. Pt talked in depth about all the surgery he has had. Stating he gets prednisone online for infl ammation. States no Doctor will put him on Opioids. * Charlene Lee APRN, CNP - 08/07/2023 8:24 AM CDT [facility] Psychiatry Progress Note PATIENT NAME: Nicanor Alvarado DATE OF SERVICE: 08/07/2023 ATTENDING PRACTITIONER: Charlene Lee APRN, CNP HOSPITAL DAY # 18 CHIEF COMPLAINT subsequent inpatient psychiatric encounter INTERVAL HISTORY Nicanor Alvarado was seen along with MHT. Pt is excited as he reports another night of good sleep.Stated he woke up briefly got some meds and then returned to bed. He was able to fall asleep and feel well rested this morning. Pt was asked about the refusal of Naltrexone. Pt states he does not like how it makes him feel. He added I am on too many pills and don't additional meds. I will toss them anyway when I get home so I don't need it. Discussed need for support with ETOH use but pt denies its a problem. He states he does not need it. He will be at his mom's house and there will be no alcohol. Pt reports feeling good that his so completed treatment yesterday and was able to shaw amanda his son some money. He also met with a polygraph examiner yesterday who give him a pendant he plan to add it to a necklace. He did confession with the retail mortgage banker and that's something he has not done in over 20 years and believes sins are forgiven. REVIEW OF SYSTEMS Constitutional: did not endorse physical health concerns aside from as discussed above + chronic back pain Psychiatric: denied thoughts of self harm, SI, HI, AH, and/or VH; see above Medication side effects: none endorsed CHART REVIEW & MULTIDISCIPLINARY TEAM MEETING Met with the multidisciplinary treatment team and discussed care and treatment planning. RN Report: Subjective: I have had some surgeries with insomnia and they are getting my medications straight. I will not go back to using the Xanax anymore I just did it to get some sleep but my medications arereally working now. Objective:Up on the unit and initiated taking a shower and also shaving today. Patient complained of pain at a 3 level and given motrin and robaxin with good results. Patient is social with staff andparticipating in unit milieu. Blood pressure remains elevated which has been a problem for him for many years. Encouraged to drink more water. Patient reports he will not use xanax when he leaves [facility]. Legal Status: probate court hold SW Report: reviewed and discussed Group attendance and participation: / OT attended PRN medications: reviewed MAR OBJECTIVE Hours of Sleep: Patient Vitals for the past 72 hrs: Sleep Hours 08/07/23 0638 7.8 HOURS 08/06/23 2243 1 HOURS 08/06/23 1511 0.8 HOURS 08/06/23 0630 6.5 HOURS 08/05/23 2242 1.5 HOURS 08/05/23 1415 0.8 HOURS 08/05/23 0643 7.3 HOURS 08/04/23 2240 1 HOURS 08/04/23 1446 0.8 HOURS LABS: No results found for this or any previous visit (from the past 24 hour(s)). Current Facility-Administered Medications Medication Dose Route Frequency acetaminophen (TYLENOL) tablet 1,000 mg 1,000 mg Oral DAILY PRN amitriptyline (ELAVIL) tablet 100 mg 100 mg Oral At Bedtime amLODIPine (NORVASC) tablet 5 mg 5 mg Oral Daily aspirin chewable tablet 81 mg 81 mg Oral Daily atorvastatin (LIPITOR) tablet 20 mg 20 mg Oral Evening senna (SENOKOT) tablet 2 Tablet 2 Tablet Oral BID PRN And polyethylene glycol (MIRALAX) oral powder 17 g 17 g Oral DAILY PRN And bisacodyl (DULCOLAX) rectal suppository 10 mg 10 mg Rectal DAILY PRN calcium carbonate (TUMS) chewable tablet 1,000 mg 1,000 mg Oral Q4H PRN desonide (DESOWEN) 0.05 % cream Topical BID diclofenac (VOLTAREN) gel 2 g 2 g Topical QID PRN diphenhydrAMINE (BENADRYL) capsule 50 mg 50 mg Oral At Bedtime diphenhydrAMINE (BENADRYL) capsule 50 mg 50 mg Oral DAILY PRN folic acid tablet 1 mg 1 mg Oral Daily gabapentin (NEURONTIN) capsule 1,200 mg 1,200 mg Oral TID ibuprofen (MOTRIN) tablet 600 mg 600 mg Oral Q6H PRN lidocaine (ASPERCREAM) 4 % patch 2 Patch 2 Patch Transdermal Daily lidocaine (XYLOCAINE) 5 % ointment Topical TID PRN methocarbamol (ROBAXIN) tablet 750 mg 750 mg Oral TID PRN methocarbamol (ROBAXIN) tablet 750 mg 750 mg Oral At Bedtime metoprolol succinate (TOPROL XL) extended release tablet 25 mg 25 mg Oral Daily naltrexone (REVIA) tablet 50 mg 50 mg Oral Daily nicotine (COMMIT) lozenge 2 mg 2 mg Oral Q1H PRN Or nicotine (NICORETTE) gum 2 mg 2 mg Oral Q1H PRN OLANZapine (ZyPREXA ZYDIS) disintegrating tablet 10 mg 10 mg Oral BID PRN pantoprazole DR (PROTONIX) tablet 40 mg 40 mg Oral Daily at 6 am QUEtiapine (SEROquel) tablet 800 mg 800 mg Oral At Bedtime tamsulosin (FLOMAX) capsule 0.4 mg 0.4 mg Oral Daily after a meal thiamine (VITAMIN B-1) tablet 100 mg 100 mg Oral Daily Food intake: Amount of Diet Consumed (last 3 days) Date/Time Intake (%) 08/06/23 1813 100%;Dinner 08/06/23 1200 100%;Lunch 08/06/23 0823 100%;Breakfast 08/05/23 1734 100%;Dinner 08/05/23 1200 100%;Lunch 08/05/23 0820 Breakfast;100% 08/04/23 1700 100%;Dinner 08/04/23 1225 100%;Lunch 08/04/23 0833 100%;Breakfast ALLERGY Allergies Allergen Reactions Valproic Acid Other, see comments Excessive sedation Naltrexone Other, see comments Pt told RN he did not like it so he stopped taking it. MENTAL STATUS EXAM Filed Vitals: 08/05/23 1100 08/05/23 1611 08/06/23 0829 08/06/23 1637 BP: (!) 144/94 (!) 147/92 (!) 143/96 (!) 145/90 Pulse: 88 86 89 Resp: 16 18 16 Temp: 98 ??F (36.7 ??C) 98.4 ??F (36.9 ??C) 98.7 ??F (37.1 ??C) TempSrc: Oral Skin Skin SpO2: 98% 100% 98% Weight: Height: Appearance: alert, intermittent eye contact, wearing scrubs, adequate grooming, appears older than stated age Behavior: engaged, needy, med seeking, more elevated and animated Motor: restless Gait and Station: unimpaired Speech: normal in rate, normal to loud in volume, hyper-verbal / over-inclusive Language: intact Thought process: largely linear Thought content: denied thoughts of self harm, SI, HI, +AH (but pleasant/encouraging), no VH; +paranoia re demons ? Associations: grossly intact Mood: good, hopeful Affect: anxious Orientation: grossly oriented Attention: intact Memory: impaired Insight: limited Judgment: poor CONSULTATION [facility], 07/24/23: Assessment / Recommendations Follow up on labs show creat 0.96, returned to normal range and resolved USAMA. K is 5.1 but sample hemolyzed. med consulted on 07/23/23 because of chronic back/neck/shoulder pain. To me, pt reports chronic low back, B/L hip, and shoulder pain. Frustrated that doctors will not prescribe him opioids, and that they recommend against diclofenac due to kidney issues. 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 Although from a kidney perspective it may be safe to use NSAIDs, danny for an acute/short term need,I still do not believe this is the best nursing home medication for this patient for pain control moreso because of his cardiac risks with longstanding HLD, HTN, age, gender. In several studies, NSAIDshave shown to further increase the risk for thrombotic CV events as well as bleeding events. He is on ASA and addition of NSAID will increase risk of GI bleeding, as well. No current red flag symptoms for neck/back/shoulder pain, actually appears more controlled than previously per patient's report/chart review. Plan: - gabapentin has been helpful - continue 600 mg TID - lidocaine patch lower back has been helpful - continue daily; also offer additional lidocaine patch for neck or shoulder pain if pt desires - tylenol 650 mg prn changed to 1000 mg TID scheduled - diclofenac gel ordered instead to use topically as less systemic absorption - Given patient's chronic difficult to control pain and his h/o of self medicating with meds he buys off internet, I do think it is important to find a pain regimen that will control pt's chronic pain in a meaningful way so that he is less likely to use the internet to buy pills that are not prescribed to him - given it is the weekend, pain team is not available, but would consider primary team consult them and/or send OP referral to pain clinic for patient at hospital discharge. Pain team was consulted during a previous admission in May 2023, but he was not interested in any options other than opioids at that time. He did not ask me about opioids during our visit, so I believe he may nowbe open to more options, perhaps even intraarticular injections for shoulder/hip/back pain. med will sign off. Please reach out with any questions/concerns. Orin Nelson PA-C PAIN MANAGEMENT, 07/25: TREATMENT RECOMMENDATIONS/PLAN: Increase gabapentin to 1200mg TID Elavil 50mg QHS for sleep and nerve pain Change flexeril to robaxin 750 mg QID PRN NSAIDS could be considered in the future. Overall high risk patient with severe substance use disorder Will add non-opioid adjuvants. I did talk to him about suboxone; since he doesn't have opioid use disorder, this would not be my first preference. However, I would avoid pure opioid agonists at this time. ASSESSMENT AND RECOMMENDATIONS DISCUSSED WITH: Kristin Rutledge PA-C Thank you for consulting the Inpatient Pain Management Service. Please contact me with any questions or concerns. Aaron Galicia M.D. Addiction Medicine 08/06/23: A/P from consult on 07/20/23 57 yo male c severe methamphetamine/alcohol/BZD use [...] -challenged him to follow through with treatment. Bossman Franco MD 08/06/2023, 12:58 PM IMPRESSION Nicanor Alvarado is a 57 y.o. male who has been admitted to [facility] for AH, paranoia, substance withdrawal, and possible [...] his room over the weekend. Admitted to [facility]: 07/20: Restless on exam. Reported +AH and +paranoia (under investigation - which he is starting toquestion as the truth). Less disorganized as compared to when on Medicine. He said he was not really sure about the events [employer]. He drinks alcohol heavily, nearly 3L of [employer] rum per week. He has been prescribed Lexapro, but he is not consistent w taking it. Sometimes I need more, referring to self medicating. He used methamphetamine [employer]. He said he has +AH at his baseline, but while using methamphetamine, the +AH escalated and, it got bad. Someone could have . It all seemed so real. He said he began to think that he would be better off if he just used all of the methamph etamine, so he used some IV. His paranoia escalated and he began to feel like someone was going to come through his door, so I ate the rest of the bag b/c I thought I would need the rage and energy to fight them off. Guarded at times. Hesitantly, he denied having SI and he denied the [employer] event asa SA. 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 When initially in the ED, he reported +SI (also while on Medicine) and, when questioned about ingestion, he replied w not enough. Per chart review from the 05/2023 Medicine admission (admitted for erratic driving / legal blood draw, while in the ED he had a syncopal episode and required Medicine admission then transfer to [facility]): He reports that he had about 2 hospitalizations in the past month. One in [facility] (04/24/2022) for acute toxic encephalopathy, drug overdose (cannabinoids, methamphetamine), and alcohol withdrawal w/ delirium tremens which required large amount of benzo. He says he had another hospitalization in [place]. He reports that one of these hospitalizations led to ICU stay and he was told that his kidney were failing, but no detailed records of outside hospital stay are available on admission. 07/21: Restless, argumentative, anxious, irritable, and illogical. He is agreeable to [facility] tx, especially to access psychotherapy, knowing it will likely eventually be court ordered. However, he also stated that he has no intentions of quitting alcohol all together, but only cutting back, b/c of his chronic pain. Additionally, he is unwilling to stay in the hospital beyond his 72h hold, in order tofacilitate a door to door transfer to [facility] tx. He was educated on his risk of relapse and reminded of his recent hospitalizations, related to use / overdosing. Pt was reminded that he himself stated someone could have in relation to the events prior to this admission. He does not see his drinking as a problem, stating, I don't drive. Manager Convention noted that he recently missed a court date for aDUI charge and, last hospitalization here, he was brought here for a legal blood draw after being stopped for erratic driving. When asked about the pill bottles that were scattered around him, when found [employer], he could not give an explanation. Will file a petition for civil commitment. 07/22: Quite tense, irritable, and rude on approach. Said he wants to d/c directly to [facility] he suspects there must be a bench warrant issued for his arrest d/t missing a DUI court date a few weeks back. He slept better, but asked for PRN Benadryl instead of PRN Melatonin. Thought processwas linear. No overt paranoia. Reported +AH last edil. [facility] is supporting petition for commitment. 07/23: He is frustrated w not being able to access an opioid or Voltaren for his chronic pain. He has no insight into risk / benefit considerations. He is resistant to any treatment that takes more effort than popping a pill. He reluctantly agreed to a pain medicine consult. He was noted to be diaphoretic, but has not been scoring high enough on CIWA to warrant PRN BZD. He talked at length about his oldest son's by hanging and about how he has struggled in the aftermath and has failed to adequately support his second son over the years. His second son has attempted suicide numerous timesand is currently in [facility] tx. He added, I must before him. The pt talked about his hinduism bel iefs, about not believing in suicide, but having come to the conclusion that even someone who does not believe in suicide can get to the point of attempting suicide. He denied thoughts of self harm, SI, HI, and VH. He reported +AH and +tactile hallucinations >> hypnagogic-like. Affect was anxious, tense, and irritable. 07/24: No diaphoresis today. Using PRNs for sleep. Denied further AH, VH, or tactile hallucinations.(However, his report of hallucinations varies from person to person.) Agreeable to med trials for various concerns, but tends to want to immediately jump to large doses. Anxious, intense at times, and restless. Thought process is largely linear. Denied SI / HI. He mentioned this hospitalization as the 4th time he's been in the ICU in as many months. 07/25: More elevated, animated, intense, and irritable. Continues restless. Med seeking - more of (to include opioids, BZD, and now stimulants, but also other more benign meds) - and wanting to go straight to high doses. He is a very inconsistent historian w details changing from day to day, person to person. Memory impairment is noted. He noted that he did not trash his kidneys as badly prior to this admission as compared to his other 3 recent admissions. He minimized the significance of his past renal injury and dismissed the warnings he has received by healthcare professionals re the risks to his vital organs. He called them over-dramatic. Denied AH / SI. +Paranoia re demons? Hyper-verbal. 07/26: Continued fixation on medications, feels he is in need of something additional for both pain and sleep -- pt offers diclofenac and Xanax as effective interventions, but understanding when web content writer offered renal concerns with diclofenac and habit-forming tendencies with Xanax. Pt hopeful for Benadryl for sleep which was agreed upon. Discussed Gabapentin additionally as options for both pain, sleep and RLS. 07/27: Less intense, irritable than yesterday and reporting sufficient sleep for the first time in years. Generally fixated on pain, medication options in case things fail down the road during current hospitalization. Apart from this, pt occasionally offers comments about how Xanax and opiate medications would simplify my long med list, but redirectable. 07/28: Largely unchanged, though briefly frustrated with not having Robaxin scheduled. Will do so moving forward per his request. Feels ready for CD referrals, aware that final commitment hearing is not until next week. 07/29: Planning out possible medication changes on a daily basis, frequently asks what next step is if certain medications do not work for him long-term, additionally routes interview back to discussion of pain/diclofenac several times throughout interaction. Very focused on medication regimen schedule. 07/30: Continued fixation on possible medication options moving forward, today mostly surrounding safety profile of medications with alcohol use. Additionally reported voices over the last couple of days, previously withheld from treatment team as he thought this would result in Seroquel being takenaway. 07/31: Unchanged; required. Fran last night for sleep, had difficulty sleeping through the night for 1st time in several days. Agreed to keep medications as are for now, revisit sleep augmentation if issues persist. Otherwise, no changes. 08/01: Persistent request to have suicidal ideation/status clarified by current team, fearful of having this label carried over into time at treatment. Otherwise, reported worse sleep for the past twodays and would appreciate increase in amitriptyline which web content writer agreed to. 08/02: Pt calm, cooperative and medication compliant. Denies psych symptoms. He reports being in agreement with need for CD treatment but argues 3 months is too long as he is the primary provider for his adult son who also struggles with alcohol use/abuse. Discussed benefits for in-patient and hopefully pt will be able to help his son through addiction but the pt argues other james. He believes hisproblem is not meth rather alcohol and he can limit himself. Pt is argumentative and has no insighton dangerous behaviors poses increased risk. Reports adequate sleep since admission. 08/03: Stressed, anxious about court hearing tomorrow. Anticipates he will be committed but does notlike the language as it seems forceful rather then voluntary. Discussed CD tx options and support systems as he work to archived sobriety. Motivated to seek help so as to help his son. Report good sleep the past nights. Requested his records be doctored for suicide because he was never suicidal and does not want belongings taken away when he gets to treatment. 08/04: Mixed of emotions today. Pt had courts earlier today and is excited he was given a SOC as it gives him more options and means of helping his son as well. Pt continued to express committment to CD treatment. He hopes he and son can team up and do AA together. Reports adequate sleep at night. Denies psych symptoms. Re-consulted addiction medicine as the pt is more open to discussion/medication assisted treatment. 08/05: Improved mood. Pt is more open-minded to recommendations regarding treatment. He reports improve sleep on current regimen. He hoes that continues. Discussed sleep hygiene, recommended CBT-I forongoing insomnia. 08/06: Continue to have good sleep. Remains committed to CD tx and then AA but opposed to MAT. Pt wasseen by Addiction med and he was started on Naltrexone. Pt is refusing med stating he does not need it. He is minimizing his alcohol and stating he can self limit his alcohol usage. Shows limited insight into his addiction. Using Zyprexa PRN almost every night to resume sleep which has been effective. Will continue to evaluate the need for scheduled Zyprexa as pt denies psych symptoms. Pt was seen by spiritual care and that has helped improved his mood. DIAGNOSES & PLAN Principal Psychiatric / Substance Use Diagnoses: - encephalopathy s/p ingestion: improved - bipolar disorder w psychosis vs SCAD by hx - r/o substance induced psychosis - alcohol use disorder, severe - methamphetamine use disorder, severe - BZD use disorder, severe - alcohol / BZD withdrawal Medical Concerns to be addressed: - USAMA: resolved - ?element of CKD? - mild rhabdomyolysis: improved - chronic back pain: see Medicine consult - HTN: restarted [employer] medications - GERD: restarted PPI - HLD: restarted statin - LUTS: flomax - Patient with moderate malnutrition in the context of social/environmental circumstances during hospital stay and remains with no acute or chronic nutrition problems at this time. Patient requiring additional resources due to degree of malnutrition during hospital stay. Dietitian following with the following nutrition therapy plan: 1.) Ok to continue boost TID 2.) RDN to sign off, please consult as needed Medication Ordered/Consults/Labs/Tests Ordered: 07/18: Delirium precautions ordered. Seroquel ordered 100 mg QHS and 50 mg q4PRN. Zyprexa 5 PO mg vs10 mg IV - TID PRN if needed. UDS ordered. Will order high dosed Thiamine. Will order addiction consult. Gabapentin 300 mg TID ordered for withdrawal symptoms. 07/19: Increase quetiapine to 100mg TID. [employer] dose was 800mg qHS. UDS+ for amphetamines. 07/20: Will give Seroquel 200mg at bedtime this edil then combine doses / change dose to 400mg po qhs. Will titrate to [employer] dose of 800mg po qhs as tolerated / indicated. Hold Lexapro for now. He has not been consistently taking it. Increase Neurontin to 600mg po TID. Offer Zyprexa 10mg po BID PRN. Continue CIWA protocol w PRN Valium and PRN Clonidine. 07/21: Lidocaine patch daily. Medicine consult if [facility] is issued. 07/22: Medicine consult for chronic back pain management. Increase Seroquel to 500mg po qhs. D/c PRNMelatonin and replace w PRN Benadryl. 07/23: Increase Seroquel to 600mg po qhs. Per his request, change Flexeril 10mg from TID PRN to TID.Will avoid Requip for RLS as it could worsen his DC sxs. Instead, will increase Neurontin to 900mg po TID. Spiritual care consult ordered. 07/24: Advance Seroquel to 700mg po qhs. Add Trazodone 50mg po qhs + 50mg po qhs PRN. Changed Benadryl to PRN itching only as this could worsen RLS, if that is truly what he has. Will discuss the possibility of akathisia (vs RLS) tomorrow. 07/25: Increase Seroquel to his [employer] dose of 800mg po qhs. Add a 2nd Lidocaine patch. Maximize daily APAP dose by allowing a daily PRN dose to his TID scheduled APAP. Pain Management consult placed. Trial Cogentin 1mg po BID for possible akathisia. D/c PRN Benadryl as he has Trazodone available. D/c CIWA. 07/26: DC Aminah, may consider non-cardioselective beta messi in place of Toprol (ie. Inderal) for better akathisia coverage if RLS symptoms do not improve with increased Gabapentin. 07/27: Desonide cream BID for dermatitis. 07/28: Scheduled Robaxin 750 mg hs per pt request. 07/29 -- : No change. 08/01: EKG 08/02 AM. Amitriptyline to 100 mg hs. 08/02-: No change 08/04: Consult Addiction medicine 08/05: Per addiction med Naltrexone 50 mg daily 08/06: No change Milieu Management: Admit to: [facility] Legal: >> >>>SOC (08/05). Acuity level: Yellow Encouraged the patient to participate in unit activities. Level of Observation: No additional monitoring needed RE-CERTIFICATION & RISK ASSESSMENT The patient continues to need, on a daily basis, active inpatient psychiatric treatment for ongoingdiagnostic assessment and treatment of the following symptoms: AH, paranoia, substance withdrawal, and possible SI w possible SA prior to admission. The treatment can reasonably be expected to improve the patient's condition. Estimated length of stay is 14 days. Anticipated disposition: home vs care home vs [facility] tx Risk Assessment: assault: Medium - paranoid Suicide Risk: Low Patient Strengths: willing to take medications Charlene Lee APRN, CNP * Becca Walker RN - 08/07/2023 8:15 AM CDT Pt has been out on the unit social with select peers. Pt was medication complaint. Pt requested Robaxin and Motrin for back pain first thing this morning. Pt declined Naltroxone stating he didn't need it. * Bossman Franco MD - 08/06/2023 12:34 PM CDT A/P from consult on 07/20/23 57 yo male c severe methamphetamine/alcohol/BZD use [...] -challenged him to follow through with treatment. Bossman Franco MD 08/06/2023, 12:58 PM * Charlene Lee APRN, CNP - 08/06/2023 8:23 AM CDT [facility] Psychiatry Progress Note PATIENT NAME: Nicanor Alvarado DATE OF SERVICE: 08/06/2023 ATTENDING PRACTITIONER: Charlene Lee APRN, CNP HOSPITAL DAY # 17 CHIEF COMPLAINT subsequent inpatient psychiatric encounter INTERVAL HISTORY Nicanor Alvarado was seen along with CONCRETE ENGINEERING TECHNICIAN-fellow. Reports he had a relatively good night. He slept until about 430 AM. He was happy to get some good sleep as he has struggled with insomnia for about 24 years. He has utilized many resources and the only thing that's being helpful was the use of xanax. He added he likes the current regimen and hopes to continue on the same meds upon discharge. Pt was reassured he will be provided a month supply of all his scheduled medication. Discussed the CBT-I which can help him manage insomnia. Pt reminded he will be seeing provider from addiction med. Pt expressed his commitment to be clean. He share stories of how alcohol and drug use has affected his life. He is worried about his son but owe it to himself to be clean for the both of them. Discussed CDtx and other resources that can benefit the pt. Pt state I cannot go back (referring to drug use) cause if something happen to my son, it will be a de javu. REVIEW OF SYSTEMS Constitutional: did not endorse physical health concerns aside from as discussed above + chronic back pain Psychiatric: denied thoughts of self harm, SI, HI, AH, and/or VH; see above Medication side effects: none endorsed CHART REVIEW & MULTIDISCIPLINARY TEAM MEETING Met with the multidisciplinary treatment team and discussed care and treatment planning. RN Report: Subjective: I've had insomnia nearly all my life. I finally found something that worked. I bought xanax on the internet. When I get out of here, I'm going to get that again. They've tried different combos of things that worked for a few days and then it stopped working. Right now, I think I'm on agood combination that works. I do wake up in the middle of the night but I can go back to sleep. If I wake up, I want my robaxin, motrin and zyprexa. Objective: Patient was cooperative with the assessment. He denies psych symptoms. However, he did express that he will try to buy xanax on the internet when he discharges to help him sleep. Manager Convention told him that it's addictive and not a good idea to do this. He said Well, should Isuffer from not sleeping the rest of my life? Gave him prn ibuprofen with his HS meds. He didn't want his desowen cream at bedtime. SW Report: reviewed and discussed Group attendance and participation: 2/4 OT attended PRN medications: reviewed MAR OBJECTIVE Hours of Sleep: Patient Vitals for the past 72 hrs: Sleep Hours 08/06/23 0630 6.5 HOURS 08/05/23 2242 1.5 HOURS 08/05/23 1415 0.8 HOURS 08/05/23 0643 7.3 HOURS 08/04/23 2240 1 HOURS 08/04/23 1446 0.8 HOURS 08/04/23 0615 7.8 HOURS 08/03/23 2234 1.3 HOURS 08/03/23 1513 0.3 HOURS LABS: No results found for this or any previous visit (from the past 24 hour(s)). Current Facility-Administered Medications Medication Dose Route Frequency acetaminophen (TYLENOL) tablet 1,000 mg 1,000 mg Oral DAILY PRN amitriptyline (ELAVIL) tablet 100 mg 100 mg Oral At Bedtime amLODIPine (NORVASC) tablet 5 mg 5 mg Oral Daily aspirin chewable tablet 81 mg 81 mg Oral Daily atorvastatin (LIPITOR) tablet 20 mg 20 mg Oral Evening senna (SENOKOT) tablet 2 Tablet 2 Tablet Oral BID PRN And polyethylene glycol (MIRALAX) oral powder 17 g 17 g Oral DAILY PRN And bisacodyl (DULCOLAX) rectal suppository 10 mg 10 mg Rectal DAILY PRN calcium carbonate (TUMS) chewable tablet 1,000 mg 1,000 mg Oral Q4H PRN desonide (DESOWEN) 0.05 % cream Topical BID diclofenac (VOLTAREN) gel 2 g 2 g Topical QID PRN diphenhydrAMINE (BENADRYL) capsule 50 mg 50 mg Oral At Bedtime diphenhydrAMINE (BENADRYL) capsule 50 mg 50 mg Oral DAILY PRN folic acid tablet 1 mg 1 mg Oral Daily gabapentin (NEURONTIN) capsule 1,200 mg 1,200 mg Oral TID ibuprofen (MOTRIN) tablet 600 mg 600 mg Oral Q6H PRN lidocaine (ASPERCREAM) 4 % patch 2 Patch 2 Patch Transdermal Daily lidocaine (XYLOCAINE) 5 % ointment Topical TID PRN methocarbamol (ROBAXIN) tablet 750 mg 750 mg Oral TID PRN methocarbamol (ROBAXIN) tablet 750 mg 750 mg Oral At Bedtime metoprolol succinate (TOPROL XL) extended release tablet 25 mg 25 mg Oral Daily nicotine (COMMIT) lozenge 2 mg 2 mg Oral Q1H PRN Or nicotine (NICORETTE) gum 2 mg 2 mg Oral Q1H PRN OLANZapine (ZyPREXA ZYDIS) disintegrating tablet 10 mg 10 mg Oral BID PRN pantoprazole DR (PROTONIX) tablet 40 mg 40 mg Oral Daily at 6 am QUEtiapine (SEROquel) tablet 800 mg 800 mg Oral At Bedtime tamsulosin (FLOMAX) capsule 0.4 mg 0.4 mg Oral Daily after a meal thiamine (VITAMIN B-1) tablet 100 mg 100 mg Oral Daily Food intake: Amount of Diet Consumed (last 3 days) Date/Time Intake (%) 08/05/23 1734 100%;Dinner 08/05/23 1200 100%;Lunch 08/05/23 0820 Breakfast;100% 08/04/23 1700 100%;Dinner 08/04/23 1225 100%;Lunch 08/04/23 0833 100%;Breakfast 08/03/23 1715 100%;Dinner 08/03/23 1200 100%;Lunch 08/03/23 0924 100%;Breakfast ALLERGY No Known Allergies MENTAL STATUS EXAM Filed Vitals: 08/04/23 1618 08/05/23 0834 08/05/23 1100 08/05/23 1611 BP: (!) 146/87 (!) 142/96 (!) 144/94 (!) 147/92 Pulse: 84 83 88 Resp: Temp: 97.7 ??F (36.5 ??C) 98.6 ??F (37 ??C) 98 ??F (36.7 ??C) TempSrc: Temporal Artery Oral Oral SpO2: 97% 100% 98% Weight: Height: Appearance: alert, intermittent eye contact, wearing scrubs, adequate grooming, appears older than stated age Behavior: engaged, needy, med seeking, more elevated and animated Motor: restless Gait and Station: unimpaired Speech: normal in rate, normal to loud in volume, hyper-verbal / over-inclusive Language: intact Thought process: largely linear Thought content: denied thoughts of self harm, SI, HI, +AH (but pleasant/encouraging), no VH; +paranoia re demons ? Associations: grossly intact Mood: emotional Affect: anxious, less intense/irritable Orientation: grossly oriented Attention: intact Memory: impaired Insight: poor Judgment: poor CONSULTATION HOSPITAL MEDICINE, 07/24/23: Assessment / Recommendations Follow up on labs show creat 0.96, returned to normal range and resolved USAMA. K is 5.1 but sample hemolyzed. med consulted on 07/23/23 because of chronic back/neck/shoulder pain. To me, pt reports chronic low back, B/L hip, and shoulder pain. Frustrated that doctors will not prescribe him opioids, and that they recommend against diclofenac due to kidney issues. 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 Although from a kidney perspective it may be safe to use NSAIDs, danny for an acute/short term need,I still do not believe this is the best nursing home medication for this patient for pain control moreso because of his cardiac risks with longstanding HLD, HTN, age, gender. In several studies, NSAIDshave shown to further increase the risk for thrombotic CV events as well as bleeding events. He is on ASA and addition of NSAID will increase risk of GI bleeding, as well. No current red flag symptoms for neck/back/shoulder pain, actually appears more controlled than previously per patient's report/chart review. Plan: - gabapentin has been helpful - continue 600 mg TID - lidocaine patch lower back has been helpful - continue daily; also offer additional lidocaine patch for neck or shoulder pain if pt desires - tylenol 650 mg prn changed to 1000 mg TID scheduled - diclofenac gel ordered instead to use topically as less systemic absorption - Given patient's chronic difficult to control pain and his h/o of self medicating with meds he buys off internet, I do think it is important to find a pain regimen that will control pt's chronic pain in a meaningful way so that he is less likely to use the internet to buy pills that are not prescribed to him - given it is the weekend, pain team is not available, but would consider primary team consult them and/or send OP referral to pain clinic for patient at hospital discharge. Pain team was consulted during a previous admission in May 2023, but he was not interested in any options other than opioids at that time. He did not ask me about opioids during our visit, so I believe he may nowbe open to more options, perhaps even intraarticular injections for shoulder/hip/back pain. med will sign off. Please reach out with any questions/concerns. Orin Nelson PA-C PAIN MANAGEMENT, 07/25: TREATMENT RECOMMENDATIONS/PLAN: Increase gabapentin to 1200mg TID Elavil 50mg QHS for sleep and nerve pain Change flexeril to robaxin 750 mg QID PRN NSAIDS could be considered in the future. Overall high risk patient with severe substance use disorder Will add non-opioid adjuvants. I did talk to him about suboxone; since he doesn't have opioid use disorder, this would not be my first preference. However, I would avoid pure opioid agonists at this time. ASSESSMENT AND RECOMMENDATIONS DISCUSSED WITH: Kristin Rutledge PA-C Thank you for consulting the Inpatient Pain Management Service. Please contact me with any questions or concerns. Aaron Galicia M.D. CAM Alvarado is a 57 y.o. male who has been admitted to station [facility] for AH, paranoia, substance withdrawal, and possible [...] his room over the weekend. Admitted to [facility]: 07/20: Restless on exam. Reported +AH and +paranoia (under investigation - which he is starting toquestion as the truth). Less disorganized as compared to when on Medicine. He said he was not really sure about the events [employer]. He drinks alcohol heavily, nearly 3L of [place] rum per week. He has been prescribed Lexapro, but he is not consistent w taking it. Sometimes I need more, referring to self medicating. He used methamphetamine [employer]. He said he has +AH at his baseline, but while using methamphetamine, the +AH escalated and, it got bad. Someone could have . It all seemed so real. He said he began to think that he would be better off if he just used all of the methamph etamine, so he used some IV. His paranoia escalated and he began to feel like someone was going to come through his door, so I ate the rest of the bag b/c I thought I would need the rage and energy to fight them off. Guarded at times. Hesitantly, he denied having SI and he denied the [employer] event asa SA. 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 When initially in the ED, he reported +SI (also while on Medicine) and, when questioned about ingestion, he replied w not enough. Per chart review from the 05/2023 Medicine admission (admitted for erratic driving / legal blood draw, while in the ED he had a syncopal episode and required Medicine admission then transfer to [facility]): He reports that he had about 2 hospitalizations in the past month. One in [facility] (04/24/2022) for acute toxic encephalopathy, drug overdose (cannabinoids, methamphetamine), and alcohol withdrawal w/ delirium tremens which required large amount of benzo. He says he had another hospitalization in [place]. He reports that one of these hospitalizations led to ICU stay and he was told that his kidney were failing, but no detailed records of outside hospital stay are available on admission. 07/21: Restless, argumentative, anxious, irritable, and illogical. He is agreeable to [facility] tx, especially to access psychotherapy, knowing it will likely eventually be court ordered. However, he also stated that he has no intentions of quitting alcohol all together, but only cutting back, b/c of his chronic pain. Additionally, he is unwilling to stay in the hospital beyond his 72h hold, in order tofacilitate a door to door transfer to [facility] tx. He was educated on his risk of relapse and reminded of his recent hospitalizations, related to use / overdosing. Pt was reminded that he himself stated someone could have in relation to the events prior to this admission. He does not see his drinking as a problem, stating, I don't drive. Manager Convention noted that he recently missed a court date for aDUI charge and, last hospitalization here, he was brought here for a legal blood draw after being stopped for erratic driving. When asked about the pill bottles that were scattered around him, when found [employer], he could not give an explanation. Will file a petition for civil commitment. 07/22: Quite tense, irritable, and rude on approach. Said he wants to d/c directly to [facility] he suspects there must be a bench warrant issued for his arrest d/t missing a DUI court date a few weeks back. He slept better, but asked for PRN Benadryl instead of PRN Melatonin. Thought processwas linear. No overt paranoia. Reported +AH last edil. [facility] is supporting petition for commitment. 07/23: He is frustrated w not being able to access an opioid or Voltaren for his chronic pain. He has no insight into risk / benefit considerations. He is resistant to any treatment that takes more effort than popping a pill. He reluctantly agreed to a pain medicine consult. He was noted to be diaphoretic, but has not been scoring high enough on CIWA to warrant PRN BZD. He talked at length about his oldest son's by hanging and about how he has struggled in the aftermath and has failed to adequately support his second son over the years. His second son has attempted suicide numerous timesand is currently in [facility] tx. He added, I must before him. The pt talked about his hinduism bel iefs, about not believing in suicide, but having come to the conclusion that even someone who does not believe in suicide can get to the point of attempting suicide. He denied thoughts of self harm, SI, HI, and VH. He reported +AH and +tactile hallucinations >> hypnagogic-like. Affect was anxious, tense, and irritable. 07/24: No diaphoresis today. Using PRNs for sleep. Denied further AH, VH, or tactile hallucinations.(However, his report of hallucinations varies from person to person.) Agreeable to med trials for various concerns, but tends to want to immediately jump to large doses. Anxious, intense at times, and restless. Thought process is largely linear. Denied SI / HI. He mentioned this hospitalization as the 4th time he's been in the ICU in as many months. 07/25: More elevated, animated, intense, and irritable. Continues restless. Med seeking - more of (to include opioids, BZD, and now stimulants, but also other more benign meds) - and wanting to go straight to high doses. He is a very inconsistent historian w details changing from day to day, person to person. Memory impairment is noted. He noted that he did not trash his kidneys as badly prior to this admission as compared to his other 3 recent admissions. He minimized the significance of his past renal injury and dismissed the warnings he has received by healthcare professionals re the risks to his vital organs. He called them over-dramatic. Denied AH / SI. +Paranoia re demons? Hyper-verbal. 07/26: Continued fixation on medications, feels he is in need of something additional for both pain and sleep -- pt offers diclofenac and Xanax as effective interventions, but understanding when web content writer offered renal concerns with diclofenac and habit-forming tendencies with Xanax. Pt hopeful for Benadryl for sleep which was agreed upon. Discussed Gabapentin additionally as options for both pain, sleep and RLS. 07/27: Less intense, irritable than yesterday and reporting sufficient sleep for the first time in years. Generally fixated on pain, medication options in case things fail down the road during current hospitalization. Apart from this, pt occasionally offers comments about how Xanax and opiate medications would simplify my long med list, but redirectable. 07/28: Largely unchanged, though briefly frustrated with not having Robaxin scheduled. Will do so moving forward per his request. Feels ready for CD referrals, aware that final commitment hearing is not until next week. 07/29: Planning out possible medication changes on a daily basis, frequently asks what next step is if certain medications do not work for him long-term, additionally routes interview back to discussion of pain/diclofenac several times throughout interaction. Very focused on medication regimen schedule. 07/30: Continued fixation on possible medication options moving forward, today mostly surrounding safety profile of medications with alcohol use. Additionally reported voices over the last couple of days, previously withheld from treatment team as he thought this would result in Seroquel being takenaway. 07/31: Unchanged; required. Robaxin last night for sleep, had difficulty sleeping through the night for 1st time in several days. Agreed to keep medications as are for now, revisit sleep augmentation if issues persist. Otherwise, no changes. 08/01: Persistent request to have suicidal ideation/status clarified by current team, fearful of having this label carried over into time at treatment. Otherwise, reported worse sleep for the past twodays and would appreciate increase in amitriptyline which web content writer agreed to. 08/02: Pt calm, cooperative and medication compliant. Denies psych symptoms. He reports being in agreement with need for CD treatment but argues 3 months is too long as he is the primary provider for his adult son who also struggles with alcohol use/abuse. Discussed benefits for in-patient and hopefully pt will be able to help his son through addiction but the pt argues other james. He believes hisproblem is not meth rather alcohol and he can limit himself. Pt is argumentative and has no insighton dangerous behaviors poses increased risk. Reports adequate sleep since admission. 08/03: Stressed, anxious about court hearing tomorrow. Anticipates he will be committed but does notlike the language as it seems forceful rather then voluntary. Discussed CD tx options and support systems as he work to archived sobriety. Motivated to seek help so as to help his son. Report good sleep the past nights. Requested his records be doctored for suicide because he was never suicidal and does not want belongings taken away when he gets to treatment. 08/04: Mixed of emotions today. Pt had courts earlier today and is excited he was given a SOC as it gives him more options and means of helping his son as well. Pt continued to express committment to CD treatment. He hopes he and son can team up and do AA together. Reports adequate sleep at night. Denies psych symptoms. Re-consulted addiction medicine as the pt is more open to discussion/medication assisted treatment. 08/05: Improved mood. Pt is more open-minded to recommendations regarding treatment. He reports improve sleep on current regimen. He hoes that continues. Discussed sleep hygiene, recommended CBT-I forongoing insomnia. DIAGNOSES & PLAN Principal Psychiatric / Substance Use Diagnoses: - encephalopathy s/p ingestion: improved - bipolar disorder w psychosis vs SCAD by hx - r/o substance induced psychosis - alcohol use disorder, severe - methamphetamine use disorder, severe - BZD use disorder, severe - alcohol / BZD withdrawal Medical Concerns to be addressed: - USAMA: resolved - ?element of CKD? - mild rhabdomyolysis: improved - chronic back pain: see Medicine consult - HTN: restarted [employer] medications - GERD: restarted PPI - HLD: restarted statin - LUTS: flomax - Patient with moderate malnutrition in the context of social/environmental circumstances during hospital stay and remains with no acute or chronic nutrition problems at this time. Patient requiring additional resources due to degree of malnutrition during hospital stay. Dietitian following with the following nutrition therapy plan: 1.) Ok to continue boost TID 2.) RDN to sign off, please consult as needed Medication Ordered/Consults/Labs/Tests Ordered: 07/18: Delirium precautions ordered. Seroquel ordered 100 mg QHS and 50 mg q4PRN. Zyprexa 5 PO mg vs10 mg IV - TID PRN if needed. UDS ordered. Will order high dosed Thiamine. Will order addiction consult. Gabapentin 300 mg TID ordered for withdrawal symptoms. 07/19: Increase quetiapine to 100mg TID. [employer] dose was 800mg qHS. UDS+ for amphetamines. 07/20: Will give Seroquel 200mg at bedtime this edil then combine doses / change dose to 400mg po qhs. Will titrate to [employer] dose of 800mg po qhs as tolerated / indicated. Hold Lexapro for now. He has not been consistently taking it. Increase Neurontin to 600mg po TID. Offer Zyprexa 10mg po BID PRN. Continue CIWA protocol w PRN Valium and PRN Clonidine. 07/21: Lidocaine patch daily. Medicine consult if [facility] is issued. 07/22: Medicine consult for chronic back pain management. Increase Seroquel to 500mg po qhs. D/c PRNMelatonin and replace w PRN Benadryl. 07/23: Increase Seroquel to 600mg po qhs. Per his request, change Flexeril 10mg from TID PRN to TID.Will avoid Requip for RLS as it could worsen his DC sxs. Instead, will increase Neurontin to 900mg po TID. Spiritual care consult ordered. 07/24: Advance Seroquel to 700mg po qhs. Add Trazodone 50mg po qhs + 50mg po qhs PRN. Changed Benadryl to PRN itching only as this could worsen RLS, if that is truly what he has. Will discuss the possibility of akathisia (vs RLS) tomorrow. 07/25: Increase Seroquel to his [employer] dose of 800mg po qhs. Add a 2nd Lidocaine patch. Maximize daily APAP dose by allowing a daily PRN dose to his TID scheduled APAP. Pain Management consult placed. Trial Cogentin 1mg po BID for possible akathisia. D/c PRN Benadryl as he has Trazodone available. D/c CIWA. 07/26: MONTEZ Burr, may consider non-cardioselective beta messi in place of Toprol (ie. Inderal) for better akathisia coverage if RLS symptoms do not improve with increased Gabapentin. 07/27: Desonide cream BID for dermatitis. 07/28: Scheduled Robaxin 750 mg hs per pt request. 07/29 -- : No change. 08/01: EKG 08/02 AM. Amitriptyline to 100 mg hs. 08/02-: No change 08/04: Consult Addiction medicine 08/05: Per addiction med Naltrexone 50 mg daily Milieu Management: Admit to: [facility] Legal: >> >>>SOC (08/05). Acuity level: Red (caution - at risk, monitored for safety) Encouraged the patient to participate in unit activities. Level of Observation: No additional monitoring needed RE-CERTIFICATION & RISK ASSESSMENT The patient continues to need, on a daily basis, active inpatient psychiatric treatment for ongoingdiagnostic assessment and treatment of the following symptoms: AH, paranoia, substance withdrawal, and possible SI w possible SA prior to admission. The treatment can reasonably be expected to improve the patient's condition. Estimated length of stay is 14 days. Anticipated disposition: home vs care home vs [facility] tx Risk Assessment: assault: Medium - paranoid Suicide Risk: Low Patient Strengths: willing to take medications Charlene Lee APRN, CNP * Charlene Lee APRN, CNP - 08/05/2023 8:24 AM CDT [facility] Psychiatry Progress Note PATIENT NAME: Nicanor Alvarado DATE OF SERVICE: 08/05/2023 ATTENDING PRACTITIONER: Charlene Lee APRN, CNP HOSPITAL DAY # 16 CHIEF COMPLAINT subsequent inpatient psychiatric encounter INTERVAL HISTORY Nicanor Alvarado was seen along with the CONCRETE ENGINEERING TECHNICIAN-fellow. Pt was seen after his court hearing and is excited he got a SOC. Provided details explanation of SOC and pt acknowledges understanding. He reiterates his commitment to sobriety stated I can't afford to do this. He adds this is not just about him but also his son. He shares his story of addiction and how xanax and meth messed up my life. He talk about alcohol but minimizes it use but later had to acknowledge that he was under the influenceof alcohol which led to recent DWI. He is worried about how driving restriction will impact his life. Discussed with pt to consider speaking with addiction medicine as there are other options that may be beneficial. REVIEW OF SYSTEMS Constitutional: did not endorse physical health concerns aside from as discussed above + chronic back pain Psychiatric: denied thoughts of self harm, SI, HI, AH, and/or VH; see above Medication side effects: none endorsed CHART REVIEW & MULTIDISCIPLINARY TEAM MEETING Met with the multidisciplinary treatment team and discussed care and treatment planning. RN Report: Subjective: I messed up when I did some Meth Objective: Patient feeling anxious about his length of stay here. He told Wr that he was doing fineuntil he tried some meth. Pt said, I got addictive to it the first time I tried Meth. Patient has been in the Dayroom watching television show. He told Wr that he did not want to go in a state hospital but told Wr that he realizes there are consequences he has to face and hoping for the best. SW Report: reviewed and discussed Group attendance and participation: 3/ OT attended PRN medications: reviewed MAR OBJECTIVE Hours of Sleep: Patient Vitals for the past 72 hrs: Sleep Hours 08/05/23 0643 7.3 HOURS 08/04/23 2240 1 HOURS 08/04/23 1446 0.8 HOURS 08/04/23 0615 7.8 HOURS 08/03/23 2234 1.3 HOURS 08/03/23 1513 0.3 HOURS 08/03/23 0615 7.8 HOURS 08/02/23 2238 2.3 HOURS 08/02/23 1449 0.5 HOURS LABS: No results found for this or any previous visit (from the past 24 hour(s)). Current Facility-Administered Medications Medication Dose Route Frequency acetaminophen (TYLENOL) tablet 1,000 mg 1,000 mg Oral DAILY PRN acetaminophen (TYLENOL) tablet 1,000 mg 1,000 mg Oral TID amitriptyline (ELAVIL) tablet 100 mg 100 mg Oral At Bedtime amLODIPine (NORVASC) tablet 5 mg 5 mg Oral Daily aspirin chewable tablet 81 mg 81 mg Oral Daily atorvastatin (LIPITOR) tablet 20 mg 20 mg Oral Evening senna (SENOKOT) tablet 2 Tablet 2 Tablet Oral BID PRN And polyethylene glycol (MIRALAX) oral powder 17 g 17 g Oral DAILY PRN And bisacodyl (DULCOLAX) rectal suppository 10 mg 10 mg Rectal DAILY PRN calcium carbonate (TUMS) chewable tablet 1,000 mg 1,000 mg Oral Q4H PRN desonide (DESOWEN) 0.05 % cream Topical BID diclofenac (VOLTAREN) gel 2 g 2 g Topical QID PRN diphenhydrAMINE (BENADRYL) capsule 50 mg 50 mg Oral At Bedtime diphenhydrAMINE (BENADRYL) capsule 50 mg 50 mg Oral DAILY PRN folic acid tablet 1 mg 1 mg Oral Daily gabapentin (NEURONTIN) capsule 1,200 mg 1,200 mg Oral TID ibuprofen (MOTRIN) tablet 600 mg 600 mg Oral Q6H PRN lidocaine (ASPERCREAM) 4 % patch 2 Patch 2 Patch Transdermal Daily lidocaine (XYLOCAINE) 5 % ointment Topical TID PRN methocarbamol (ROBAXIN) tablet 750 mg 750 mg Oral TID PRN methocarbamol (ROBAXIN) tablet 750 mg 750 mg Oral At Bedtime metoprolol succinate (TOPROL XL) extended release tablet 25 mg 25 mg Oral Daily nicotine (COMMIT) lozenge 2 mg 2 mg Oral Q1H PRN Or nicotine (NICORETTE) gum 2 mg 2 mg Oral Q1H PRN OLANZapine (ZyPREXA ZYDIS) disintegrating tablet 10 mg 10 mg Oral BID PRN pantoprazole DR (PROTONIX) tablet 40 mg 40 mg Oral Daily at 6 am QUEtiapine (SEROquel) tablet 800 mg 800 mg Oral At Bedtime tamsulosin (FLOMAX) capsule 0.4 mg 0.4 mg Oral Daily after a meal thiamine (VITAMIN B-1) tablet 100 mg 100 mg Oral Daily Food intake: Amount of Diet Consumed (last 3 days) Date/Time Intake (%) 08/05/23 0820 Breakfast;100% 08/04/23 1700 100%;Dinner 08/04/23 1225 100%;Lunch 08/04/23 0833 100%;Breakfast 08/03/23 1715 100%;Dinner 08/03/23 1200 100%;Lunch 08/03/23 0924 100%;Breakfast 08/02/23 1700 Breakfast;Dinner 08/02/23 1200 100%;Lunch 08/02/23 0838 100%;Breakfast ALLERGY No Known Allergies MENTAL STATUS EXAM Filed Vitals: 08/03/23 0800 08/03/23 1629 08/04/23 0800 08/04/23 1618 BP: (!) 131/91 (!) 147/94 (!) 165/96 (!) 146/87 Pulse: 81 88 87 84 Resp: 17 16 (!) 10 16 Temp: 97.9 ??F (36.6 ??C) 97.8 ??F (36.6 ??C) 98.2 ??F (36.8 ??C) 97.7 ??F (36.5 ??C) TempSrc: Skin Oral Temporal Artery Temporal Artery SpO2: 100% 98% 98% 97% Weight: Height: Appearance: alert, intermittent eye contact, wearing scrubs, adequate grooming, appears older than stated age Behavior: engaged, needy, med seeking, more elevated and animated Motor: restless Gait and Station: unimpaired Speech: normal in rate, normal to loud in volume, hyper-verbal / over-inclusive Language: intact Thought process: largely linear Thought content: denied thoughts of self harm, SI, HI, +AH (but pleasant/encouraging), no VH; +paranoia re demons ? Associations: grossly intact Mood: emotional Affect: anxious, less intense/irritable Orientation: grossly oriented Attention: intact Memory: impaired Insight: poor Judgment: poor CONSULTATION [facility], 07/24/23: Assessment / Recommendations Follow up on labs show creat 0.96, returned to normal range and resolved USAMA. K is 5.1 but sample hemolyzed. med consulted on 07/23/23 because of chronic back/neck/shoulder pain. To me, pt reports chronic low back, B/L hip, and shoulder pain. Frustrated that doctors will not prescribe him opioids, and that they recommend against diclofenac due to kidney issues. 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 Although from a kidney perspective it may be safe to use NSAIDs, danny for an acute/short term need,I still do not believe this is the best nursing home medication for this patient for pain control moreso because of his cardiac risks with longstanding HLD, HTN, age, gender. In several studies, NSAIDshave shown to further increase the risk for thrombotic CV events as well as bleeding events. He is on ASA and addition of NSAID will increase risk of GI bleeding, as well. No current red flag symptoms for neck/back/shoulder pain, actually appears more controlled than previously per patient's report/chart review. Plan: - gabapentin has been helpful - continue 600 mg TID - lidocaine patch lower back has been helpful - continue daily; also offer additional lidocaine patch for neck or shoulder pain if pt desires - tylenol 650 mg prn changed to 1000 mg TID scheduled - diclofenac gel ordered instead to use topically as less systemic absorption - Given patient's chronic difficult to control pain and his h/o of self medicating with meds he buys off internet, I do think it is important to find a pain regimen that will control pt's chronic pain in a meaningful way so that he is less likely to use the internet to buy pills that are not prescribed to him - given it is the weekend, pain team is not available, but would consider primary team consult them and/or send OP referral to pain clinic for patient at hospital discharge. Pain team was consulted during a previous admission in May 2023, but he was not interested in any options other than opioids at that time. He did not ask me about opioids during our visit, so I believe he may nowbe open to more options, perhaps even intraarticular injections for shoulder/hip/back pain. med will sign off. Please reach out with any questions/concerns. Orin Nelson PA-C PAIN MANAGEMENT, 07/25: TREATMENT RECOMMENDATIONS/PLAN: Increase gabapentin to 1200mg TID Elavil 50mg QHS for sleep and nerve pain Change flexeril to robaxin 750 mg QID PRN NSAIDS could be considered in the future. Overall high risk patient with severe substance use disorder Will add non-opioid adjuvants. I did talk to him about suboxone; since he doesn't have opioid use disorder, this would not be my first preference. However, I would avoid pure opioid agonists at this time. ASSESSMENT AND RECOMMENDATIONS DISCUSSED WITH: Kristin Rutledge PA-C Thank you for consulting the Inpatient Pain Management Service. Please contact me with any questions or concerns. Aaron Galicia M.D. CAM Alvarado is a 57 y.o. male who [...] his room over the weekend. Admitted to [facility]: 07/20: Restless on exam. Reported +AH and +paranoia (under investigation - which he is starting toquestion as the truth). Less disorganized as compared to when on Medicine. He said he was not really sure about the events [employer]. He drinks alcohol heavily, nearly 3L of [employer] rum per week. He has been prescribed Lexapro, but he is not consistent w taking it. Sometimes I need more, referring to self medicating. He used methamphetamine [employer]. He said he has +AH at his baseline, but while using methamphetamine, the +AH escalated and, it got bad. Someone could have . It all seemed so real. He said he began to think that he would be better off if he just used all of the methamph etamine, so he used some IV. His paranoia escalated and he began to feel like someone was going to come through his door, so I ate the rest of the bag b/c I thought I would need the rage and energy to fight them off. Guarded at times. Hesitantly, he denied having SI and he denied the [employer] event asa SA. 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 When initially in the ED, he reported +SI (also while on Medicine) and, when questioned about ingestion, he replied w not enough. Per chart review from the 05/2023 Medicine admission (admitted for erratic driving / legal blood draw, while in the ED he had a syncopal episode and required Medicine admission then transfer to [facility]): He reports that he had about 2 hospitalizations in the past month. One in [facility] (04/24/2022) for acute toxic encephalopathy, drug overdose (cannabinoids, methamphetamine), and alcohol withdrawal w/ delirium tremens which required large amount of benzo. He says he had another hospitalization in [place]. He reports that one of these hospitalizations led to ICU stay and he was told that his kidney were failing, but no detailed records of outside hospital stay are available on admission. 07/21: Restless, argumentative, anxious, irritable, and illogical. He is agreeable to [facility] tx, especially to access psychotherapy, knowing it will likely eventually be court ordered. However, he also stated that he has no intentions of quitting alcohol all together, but only cutting back, b/c of his chronic pain. Additionally, he is unwilling to stay in the hospital beyond his 72h hold, in order tofacilitate a door to door transfer to [facility] tx. He was educated on his risk of relapse and reminded of his recent hospitalizations, related to use / overdosing. Pt was reminded that he himself stated someone could have in relation to the events prior to this admission. He does not see his drinking as a problem, stating, I don't drive. Manager Convention noted that he recently missed a court date for aDUI charge and, last hospitalization here, he was brought here for a legal blood draw after being stopped for erratic driving. When asked about the pill bottles that were scattered around him, when found [employer], he could not give an explanation. Will file a petition for civil commitment. 07/22: Quite tense, irritable, and rude on approach. Said he wants to d/c directly to [facility] he suspects there must be a bench warrant issued for his arrest d/t missing a DUI court date a few weeks back. He slept better, but asked for PRN Benadryl instead of PRN Melatonin. Thought processwas linear. No overt paranoia. Reported +AH last edil. [facility] is supporting petition for commitment. 07/23: He is frustrated w not being able to access an opioid or Voltaren for his chronic pain. He has no insight into risk / benefit considerations. He is resistant to any treatment that takes more effort than popping a pill. He reluctantly agreed to a pain medicine consult. He was noted to be diaphoretic, but has not been scoring high enough on CIWA to warrant PRN BZD. He talked at length about his oldest son's by hanging and about how he has struggled in the aftermath and has failed to adequately support his second son over the years. His second son has attempted suicide numerous timesand is currently in [facility] tx. He added, I must before him. The pt talked about his hinduism bel iefs, about not believing in suicide, but having come to the conclusion that even someone who does not believe in suicide can get to the point of attempting suicide. He denied thoughts of self harm, SI, HI, and VH. He reported +AH and +tactile hallucinations >> hypnagogic-like. Affect was anxious, tense, and irritable. 07/24: No diaphoresis today. Using PRNs for sleep. Denied further AH, VH, or tactile hallucinations.(However, his report of hallucinations varies from person to person.) Agreeable to med trials for various concerns, but tends to want to immediately jump to large doses. Anxious, intense at times, and restless. Thought process is largely linear. Denied SI / HI. He mentioned this hospitalization as the 4th time he's been in the ICU in as many months. 07/25: More elevated, animated, intense, and irritable. Continues restless. Med seeking - more of (to include opioids, BZD, and now stimulants, but also other more benign meds) - and wanting to go straight to high doses. He is a very inconsistent historian w details changing from day to day, person to person. Memory impairment is noted. He noted that he did not trash his kidneys as badly prior to this admission as compared to his other 3 recent admissions. He minimized the significance of his past renal injury and dismissed the warnings he has received by healthcare professionals re the risks to his vital organs. He called them over-dramatic. Denied AH / SI. +Paranoia re demons? Hyper-verbal. 07/26: Continued fixation on medications, feels he is in need of something additional for both pain and sleep -- pt offers diclofenac and Xanax as effective interventions, but understanding when web content writer offered renal concerns with diclofenac and habit-forming tendencies with Xanax. Pt hopeful for Benadryl for sleep which was agreed upon. Discussed Gabapentin additionally as options for both pain, sleep and RLS. 07/27: Less intense, irritable than yesterday and reporting sufficient sleep for the first time in years. Generally fixated on pain, medication options in case things fail down the road during current hospitalization. Apart from this, pt occasionally offers comments about how Xanax and opiate medications would simplify my long med list, but redirectable. 07/28: Largely unchanged, though briefly frustrated with not having Robaxin scheduled. Will do so moving forward per his request. Feels ready for CD referrals, aware that final commitment hearing is not until next week. 07/29: Planning out possible medication changes on a daily basis, frequently asks what next step is if certain medications do not work for him long-term, additionally routes interview back to discussion of pain/diclofenac several times throughout interaction. Very focused on medication regimen schedule. 07/30: Continued fixation on possible medication options moving forward, today mostly surrounding safety profile of medications with alcohol use. Additionally reported voices over the last couple of days, previously withheld from treatment team as he thought this would result in Seroquel being takenaway. 07/31: Unchanged; required. Fran last night for sleep, had difficulty sleeping through the night for 1st time in several days. Agreed to keep medications as are for now, revisit sleep augmentation if issues persist. Otherwise, no changes. 08/01: Persistent request to have suicidal ideation/status clarified by current team, fearful of having this label carried over into time at treatment. Otherwise, reported worse sleep for the past twodays and would appreciate increase in amitriptyline which web content writer agreed to. 08/02: Pt calm, cooperative and medication compliant. Denies psych symptoms. He reports being in agreement with need for CD treatment but argues 3 months is too long as he is the primary provider for his adult son who also struggles with alcohol use/abuse. Discussed benefits for in-patient and hopefully pt will be able to help his son through addiction but the pt argues other james. He believes hisproblem is not meth rather alcohol and he can limit himself. Pt is argumentative and has no insighton dangerous behaviors poses increased risk. Reports adequate sleep since admission. 08/03: Stressed, anxious about court hearing tomorrow. Anticipates he will be committed but does notlike the language as it seems forceful rather then voluntary. Discussed CD tx options and support systems as he work to archived sobriety. Motivated to seek help so as to help his son. Report good sleep the past nights. Requested his records be doctored for suicide because he was never suicidal and does not want belongings taken away when he gets to treatment. 08/04: Mixed of emotions today. Pt had courts earlier today and is excited he was given a SOC as it gives him more options and means of helping his son as well. Pt continued to express committment to CD treatment. He hopes he and son can team up and do AA together. Reports adequate sleep at night. Denies psych symptoms. Re-consulted addiction medicine as the pt is more open to discussion/medication assisted treatment. DIAGNOSES & PLAN Principal Psychiatric / Substance Use Diagnoses: - encephalopathy s/p ingestion: improved - bipolar disorder w psychosis vs SCAD by hx - r/o substance induced psychosis - alcohol use disorder, severe - methamphetamine use disorder, severe - BZD use disorder, severe - alcohol / BZD withdrawal Medical Concerns to be addressed: - USAMA: resolved - ?element of CKD? - mild rhabdomyolysis: improved - chronic back pain: see Medicine consult - HTN: restarted [employer] medications - GERD: restarted PPI - HLD: restarted statin - LUTS: flomax - Patient with moderate malnutrition in the context of social/environmental circumstances during hospital stay and remains with no acute or chronic nutrition problems at this time. Patient requiring additional resources due to degree of malnutrition during hospital stay. Dietitian following with the following nutrition therapy plan: 1.) Ok to continue boost TID 2.) RDN to sign off, please consult as needed Medication Ordered/Consults/Labs/Tests Ordered: 07/18: Delirium precautions ordered. Seroquel ordered 100 mg QHS and 50 mg q4PRN. Zyprexa 5 PO mg vs10 mg IV - TID PRN if needed. UDS ordered. Will order high dosed Thiamine. Will order addiction consult. Gabapentin 300 mg TID ordered for withdrawal symptoms. 07/19: Increase quetiapine to 100mg TID. [employer] dose was 800mg qHS. UDS+ for amphetamines. 07/20: Will give Seroquel 200mg at bedtime this edil then combine doses / change dose to 400mg po qhs. Will titrate to [employer] dose of 800mg po qhs as tolerated / indicated. Hold Lexapro for now. He has not been consistently taking it. Increase Neurontin to 600mg po TID. Offer Zyprexa 10mg po BID PRN. Continue CIWA protocol w PRN Valium and PRN Clonidine. 07/21: Lidocaine patch daily. Medicine consult if [facility] is issued. 07/22: Medicine consult for chronic back pain management. Increase Seroquel to 500mg po qhs. D/c PRNMelatonin and replace w PRN Benadryl. 07/23: Increase Seroquel to 600mg po qhs. Per his request, change Flexeril 10mg from TID PRN to TID.Will avoid Requip for RLS as it could worsen his DC sxs. Instead, will increase Neurontin to 900mg po TID. Spiritual care consult ordered. 07/24: Advance Seroquel to 700mg po qhs. Add Trazodone 50mg po qhs + 50mg po qhs PRN. Changed Benadryl to PRN itching only as this could worsen RLS, if that is truly what he has. Will discuss the possibility of akathisia (vs RLS) tomorrow. 07/25: Increase Seroquel to his [employer] dose of 800mg po qhs. Add a 2nd Lidocaine patch. Maximize daily APAP dose by allowing a daily PRN dose to his TID scheduled APAP. Pain Management consult placed. Trial Cogentin 1mg po BID for possible akathisia. D/c PRN Benadryl as he has Trazodone available. D/c CIWA. 07/26: DC Aminah, may consider non-cardioselective beta messi in place of Toprol (ie. Inderal) for better akathisia coverage if RLS symptoms do not improve with increased Gabapentin. 07/27: Desonide cream BID for dermatitis. 07/28: Scheduled Robaxin 750 mg hs per pt request. 07/29 -- : No change. 08/01: EKG 08/02 AM. Amitriptyline to 100 mg hs. 08/02-: No change 08/04: Consult Addiction medicine Milieu Management: Admit to: [facility] Legal: >> [facility] (prelim 07/29) Acuity level: Red (caution - at risk, monitored for safety) Encouraged the patient to participate in unit activities. Level of Observation: No additional monitoring needed RE-CERTIFICATION & RISK ASSESSMENT The patient continues to need, on a daily basis, active inpatient psychiatric treatment for ongoingdiagnostic assessment and treatment of the following symptoms: AH, paranoia, substance withdrawal, and possible SI w possible SA prior to admission. The treatment can reasonably be expected to improve the patient's condition. Estimated length of stay is 14 days. Anticipated disposition: home vs care home vs [facility] tx Risk Assessment: assault: Medium - paranoid Suicide Risk: Low Patient Strengths: willing to take medications Charlene Lee APRN, CNP * Charlene Lee APRN, CNP - 08/04/2023 8:25 AM CDT [facility] Psychiatry Progress Note PATIENT NAME: Nicanor Alvarado DATE OF SERVICE: 08/04/2023 ATTENDING PRACTITIONER: Charlene Lee APRN, CNP HOSPITAL DAY # 15 CHIEF COMPLAINT subsequent inpatient psychiatric encounter INTERVAL HISTORY Nicanor Alvarado alongside CONCRETE ENGINEERING TECHNICIAN fellow and psychiatrist. Pt reports he is stressed. He is worried about being committed tomorrow. Discussed commitment and it implications if he's non-compliant. Pt is agreeable with the pt but does like the idea of being committed because its a label. Discussion was focused on his motivation to help himself and be able to help his son in the process. He does not want suicide on his record as he was not suicidal even though he was found with opened pill bottles. Manager Convention informed pt that his record can not be doctored rather encourage him to continue on the path for self-improvement. Updated the pt SW will look up all potential options for CD tx since 3 months is not ideal for the pt. Pt is hopeful to he can rebuild his life and relationship with his son. Pt was encourage on the path of sobriety and offer things he and his son can do to rebuild their relationship. REVIEW OF SYSTEMS Constitutional: did not endorse physical health concerns aside from as discussed above + chronic back pain Psychiatric: denied thoughts of self harm, SI, HI, AH, and/or VH; see above Medication side effects: none endorsed CHART REVIEW & MULTIDISCIPLINARY TEAM MEETING Met with the multidisciplinary treatment team and discussed care and treatment planning. RN Report: Pt has been out on the unit social with select peers. Pt was medication complaint. Pt requested Robaxin first thing this morning. Pt was upset about his eval comminentment paperwork stating the information they put in there about him was false. Pt requesting to speak to the SW or he's going over the teams head to get answers. Denies any distrubed thoughts or thoughts of self harm. Pt requested prn Robaxin at 1450 for back pain. SW Report: reviewed and discussed Group attendance and participation: 3/4 OT attended PRN medications: reviewed MAR OBJECTIVE Hours of Sleep: Patient Vitals for the past 72 hrs: Sleep Hours 08/04/23 0615 7.8 HOURS 08/03/23 2234 1.3 HOURS 08/03/23 1513 0.3 HOURS 08/03/23 0615 7.8 HOURS 08/02/23 2238 2.3 HOURS 08/02/23 1449 0.5 HOURS 08/02/23 0615 7.8 HOURS 08/01/23 2241 0.5 HOURS 08/01/23 1500 1 HOURS LABS: No results found for this or any previous visit (from the past 24 hour(s)). Current Facility-Administered Medications Medication Dose Route Frequency acetaminophen (TYLENOL) tablet 1,000 mg 1,000 mg Oral DAILY PRN acetaminophen (TYLENOL) tablet 1,000 mg 1,000 mg Oral TID amitriptyline (ELAVIL) tablet 100 mg 100 mg Oral At Bedtime amLODIPine (NORVASC) tablet 5 mg 5 mg Oral Daily aspirin chewable tablet 81 mg 81 mg Oral Daily atorvastatin (LIPITOR) tablet 20 mg 20 mg Oral Evening senna (SENOKOT) tablet 2 Tablet 2 Tablet Oral BID PRN And polyethylene glycol (MIRALAX) oral powder 17 g 17 g Oral DAILY PRN And bisacodyl (DULCOLAX) rectal suppository 10 mg 10 mg Rectal DAILY PRN calcium carbonate (TUMS) chewable tablet 1,000 mg 1,000 mg Oral Q4H PRN desonide (DESOWEN) 0.05 % cream Topical BID diclofenac (VOLTAREN) gel 2 g 2 g Topical QID PRN diphenhydrAMINE (BENADRYL) capsule 50 mg 50 mg Oral At Bedtime diphenhydrAMINE (BENADRYL) capsule 50 mg 50 mg Oral DAILY PRN folic acid tablet 1 mg 1 mg Oral Daily gabapentin (NEURONTIN) capsule 1,200 mg 1,200 mg Oral TID lidocaine (ASPERCREAM) 4 % patch 2 Patch 2 Patch Transdermal Daily lidocaine (XYLOCAINE) 5 % ointment Topical TID PRN methocarbamol (ROBAXIN) tablet 750 mg 750 mg Oral TID PRN methocarbamol (ROBAXIN) tablet 750 mg 750 mg Oral At Bedtime metoprolol succinate (TOPROL XL) extended release tablet 25 mg 25 mg Oral Daily nicotine (COMMIT) lozenge 2 mg 2 mg Oral Q1H PRN Or nicotine (NICORETTE) gum 2 mg 2 mg Oral Q1H PRN OLANZapine (ZyPREXA ZYDIS) disintegrating tablet 10 mg 10 mg Oral BID PRN pantoprazole DR (PROTONIX) tablet 40 mg 40 mg Oral Daily at 6 am QUEtiapine (SEROquel) tablet 800 mg 800 mg Oral At Bedtime tamsulosin (FLOMAX) capsule 0.4 mg 0.4 mg Oral Daily after a meal thiamine (VITAMIN B-1) tablet 100 mg 100 mg Oral Daily Food intake: Amount of Diet Consumed (last 3 days) Date/Time Intake (%) 08/03/23 1715 100%;Dinner 08/03/23 1200 100%;Lunch 08/03/23 0924 100%;Breakfast 08/02/23 1700 Breakfast;Dinner 08/02/23 1200 100%;Lunch 08/02/23 0838 100%;Breakfast 08/01/23 1700 100%;Dinner 08/01/23 1200 100%;Lunch 08/01/23 0800 100%;Breakfast ALLERGY No Known Allergies MENTAL STATUS EXAM Filed Vitals: 08/02/23 0850 08/02/23 1621 08/03/23 0800 08/03/23 1629 BP: (!) 139/90 (!) 146/91 (!) 131/91 (!) 147/94 Pulse: 78 89 81 88 Resp: 17 16 17 16 Temp: 98.7 ??F (37.1 ??C) 97.4 ??F (36.3 ??C) 97.9 ??F (36.6 ??C) 97.8 ??F (36.6 ??C) TempSrc: Skin Oral Skin Oral SpO2: 99% 97% 100% 98% Weight: Height: Appearance: alert, intermittent eye contact, wearing scrubs, adequate grooming, appears older than stated age Behavior: engaged, needy, med seeking, more elevated and animated Motor: restless Gait and Station: unimpaired Speech: normal in rate, normal to loud in volume, hyper-verbal / over-inclusive Language: intact Thought process: largely linear Thought content: denied thoughts of self harm, SI, HI, +AH (but pleasant/encouraging), no VH; +paranoia re demons ? Associations: grossly intact Mood: stressed Affect: anxious, less intense/irritable Orientation: grossly oriented Attention: intact Memory: impaired Insight: poor Judgment: poor CONSULTATION [facility], 07/24/23: Assessment / Recommendations Follow up on labs show creat 0.96, returned to normal range and resolved USAMA. K is 5.1 but sample hemolyzed. [facility] consulted on 07/23/23 because of chronic back/neck/shoulder pain. To me, pt reports chronic low back, B/L hip, and shoulder pain. Frustrated that doctors will not prescribe him opioids, and that they recommend against diclofenac due to kidney issues. 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 In several studies, NSAIDshave shown to further increase the risk for thrombotic CV events as well as bleeding events. He is on ASA and addition of NSAID will increase risk of GI bleeding, as well. No current red flag symptoms for neck/back/shoulder pain, actually appears more controlled than previously per patient's report/chart review. Plan: - gabapentin has been helpful - continue 600 mg TID - lidocaine patch lower back has been helpful - continue daily; also offer additional lidocaine patch for neck or shoulder pain if pt desires - tylenol 650 mg prn changed to 1000 mg TID scheduled - diclofenac gel ordered instead to use topically as less systemic absorption - Given patient's chronic difficult to control pain and his h/o of self medicating with meds he buys off internet, I do think it is important to find a pain regimen that will control pt's chronic pain in a meaningful way so that he is less likely to use the internet to buy pills that are not prescribed to him - given it is the weekend, pain team is not available, but would consider primary team consult them and/or send OP referral to pain clinic for patient at hospital discharge. Pain team was consulted during a previous admission in May 2023, but he was not interested in any options other than opioids at that time. He did not ask me about opioids during our visit, so I believe he may nowbe open to more options, perhaps even intraarticular injections for shoulder/hip/back pain. [facility] will sign off. Please reach out with any questions/concerns. Orin Nelson PA-C PAIN MANAGEMENT, 07/25: TREATMENT RECOMMENDATIONS/PLAN: Increase gabapentin to 1200mg TID Elavil 50mg QHS for sleep and nerve pain Change flexeril to robaxin 750 mg QID PRN NSAIDS could be considered in the future. Overall high risk patient with severe substance use disorder Will add non-opioid adjuvants. I did talk to him about suboxone; since he doesn't have opioid use disorder, this would not be my first preference. However, I would avoid pure opioid agonists at this time. ASSESSMENT AND RECOMMENDATIONS DISCUSSED WITH: Kristin Rutledge PA-C Thank you for consulting the Inpatient Pain Management Service. Please contact me with any questions or concerns. Aaron Faychiquita Alvarado is a 57 y.o. male who has been admitted to station [facility] for AH, paranoia, substance withdrawal, and possible [...] his room over the weekend. Admitted to [facility]: 07/20: Restless on exam. Reported +AH and +paranoia (under investigation - which he is starting toquestion as the truth). Less disorganized as compared to when on Medicine. He said he was not really sure about the events [employer]. He drinks alcohol heavily, nearly 3L of [employer] rum per week. He has been prescribed Lexapro, but he is not consistent w taking it. Sometimes I need more, referring to self medicating. He used methamphetamine [employer]. He said he has +AH at his baseline, but while using methamphetamine, the +AH escalated and, it got bad. Someone could have . It all seemed so real. He said he began to think that he would be better off if he just used all of the methamph etamine, so he used some IV. His paranoia escalated and he began to feel like someone was going to come through his door, so I ate the rest of the bag b/c I thought I would need the rage and energy to fight them off. Guarded at times. Hesitantly, he denied having SI and he denied the [employer] event asa SA. 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 When initially in the ED, he reported +SI (also while on Medicine) and, when questioned about ingestion, he replied w not enough. Per chart review from the 05/2023 Medicine admission (admitted for erratic driving / legal blood draw, while in the ED he had a syncopal episode and required Medicine admission then transfer to [facility]): He reports that he had about 2 hospitalizations in the past month. One in [facility] (04/24/2022) for acute toxic encephalopathy, drug overdose (cannabinoids, methamphetamine), and alcohol withdrawal w/ delirium tremens which required large amount of benzo. He says he had another hospitalization in [place]. He reports that one of these hospitalizations led to ICU stay and he was told that his kidney were failing, but no detailed records of outside hospital stay are available on admission. 07/21: Restless, argumentative, anxious, irritable, and illogical. He is agreeable to [facility] tx, especially to access psychotherapy, knowing it will likely eventually be court ordered. However, he also stated that he has no intentions of quitting alcohol all together, but only cutting back, b/c of his chronic pain. Additionally, he is unwilling to stay in the hospital beyond his 72h hold, in order tofacilitate a door to door transfer to [facility] tx. He was educated on his risk of relapse and reminded of his recent hospitalizations, related to use / overdosing. Pt was reminded that he himself stated someone could have in relation to the events prior to this admission. He does not see his drinking as a problem, stating, I don't drive. Manager Convention noted that he recently missed a court date for aDUI charge and, last hospitalization here, he was brought here for a legal blood draw after being stopped for erratic driving. When asked about the pill bottles that were scattered around him, when found [employer], he could not give an explanation. Will file a petition for civil commitment. 07/22: Quite tense, irritable, and rude on approach. Said he wants to d/c directly to [facility] he suspects there must be a bench warrant issued for his arrest d/t missing a DUI court date a few weeks back. He slept better, but asked for PRN Benadryl instead of PRN Melatonin. Thought processwas linear. No overt paranoia. Reported +AH last edil. [facility] is supporting petition for commitment. 07/23: He is frustrated w not being able to access an opioid or Voltaren for his chronic pain. He has no insight into risk / benefit considerations. He is resistant to any treatment that takes more effort than popping a pill. He reluctantly agreed to a pain medicine consult. He was noted to be diaphoretic, but has not been scoring high enough on CIWA to warrant PRN BZD. He talked at length about his oldest son's by hanging and about how he has struggled in the aftermath and has failed to adequately support his second son over the years. His second son has attempted suicide numerous timesand is currently in [facility] tx. He added, I must before him. The pt talked about his hinduism bel iefs, about not believing in suicide, but having come to the conclusion that even someone who does not believe in suicide can get to the point of attempting suicide. He denied thoughts of self harm, SI, HI, and VH. He reported +AH and +tactile hallucinations >> hypnagogic-like. Affect was anxious, tense, and irritable. 07/24: No diaphoresis today. Using PRNs for sleep. Denied further AH, VH, or tactile hallucinations.(However, his report of hallucinations varies from person to person.) Agreeable to med trials for various concerns, but tends to want to immediately jump to large doses. Anxious, intense at times, and restless. Thought process is largely linear. Denied SI / HI. He mentioned this hospitalization as the 4th time he's been in the ICU in as many months. 07/25: More elevated, animated, intense, and irritable. Continues restless. Med seeking - more of (to include opioids, BZD, and now stimulants, but also other more benign meds) - and wanting to go straight to high doses. He is a very inconsistent historian w details changing from day to day, person to person. Memory impairment is noted. He noted that he did not trash his kidneys as badly prior to this admission as compared to his other 3 recent admissions. He minimized the significance of his past renal injury and dismissed the warnings he has received by healthcare professionals re the risks to his vital organs. He called them over-dramatic. Denied AH / SI. +Paranoia re demons? Hyper-verbal. 07/26: Continued fixation on medications, feels he is in need of something additional for both pain and sleep -- pt offers diclofenac and Xanax as effective interventions, but understanding when web content writer offered renal concerns with diclofenac and habit-forming tendencies with Xanax. Pt hopeful for Benadryl for sleep which was agreed upon. Discussed Gabapentin additionally as options for both pain, sleep and RLS. 07/27: Less intense, irritable than yesterday and reporting sufficient sleep for the first time in years. Generally fixated on pain, medication options in case things fail down the road during current hospitalization. Apart from this, pt occasionally offers comments about how Xanax and opiate medications would simplify my long med list, but redirectable. 07/28: Largely unchanged, though briefly frustrated with not having Robaxin scheduled. Will do so moving forward per his request. Feels ready for CD referrals, aware that final commitment hearing is not until next week. 07/29: Planning out possible medication changes on a daily basis, frequently asks what next step is if certain medications do not work for him long-term, additionally routes interview back to discussion of pain/diclofenac several times throughout interaction. Very focused on medication regimen schedule. 07/30: Continued fixation on possible medication options moving forward, today mostly surrounding safety profile of medications with alcohol use. Additionally reported voices over the last couple of days, previously withheld from treatment team as he thought this would result in Seroquel being takenaway. 07/31: Unchanged; required. Robaxin last night for sleep, had difficulty sleeping through the night for 1st time in several days. Agreed to keep medications as are for now, revisit sleep augmentation if issues persist. Otherwise, no changes. 08/01: Persistent request to have suicidal ideation/status clarified by current team, fearful of having this label carried over into time at treatment. Otherwise, reported worse sleep for the past twodays and would appreciate increase in amitriptyline which web content writer agreed to. 08/02: Pt calm, cooperative and medication compliant. Denies psych symptoms. He reports being in agreement with need for CD treatment but argues 3 months is too long as he is the primary provider for his adult son who also struggles with alcohol use/abuse. Discussed benefits for in-patient and hopefully pt will be able to help his son through addiction but the pt argues other james. He believes hisproblem is not meth rather alcohol and he can limit himself. Pt is argumentative and has no insighton dangerous behaviors poses increased risk. Reports adequate sleep since admission. 08/03: Stressed, anxious about court hearing tomorrow. Anticipates he will be committed but does notlike the language as it seems forceful rather then voluntary. Discussed CD tx options and support systems as he work to archived sobriety. Motivated to seek help so as to help his son. Report good sleep the past nights. Requested his records be doctored for suicide because he was never suicidal and does not want belongings taken away when he gets to treatment. DIAGNOSES & PLAN Principal Psychiatric / Substance Use Diagnoses: - encephalopathy s/p ingestion: improved - bipolar disorder w psychosis vs SCAD by hx - r/o substance induced psychosis - alcohol use disorder, severe - methamphetamine use disorder, severe - BZD use disorder, severe - alcohol / BZD withdrawal Medical Concerns to be addressed: - USAMA: resolved - ?element of CKD? - mild rhabdomyolysis: improved - chronic back pain: see Medicine consult - HTN: restarted [employer] medications - GERD: restarted PPI - HLD: restarted statin - LUTS: flomax - Patient with moderate malnutrition in the context of social/environmental circumstances during hospital stay and remains with at risk for malnutrition. Patient requiring additional resources due todegree of malnutrition during hospital stay. Dietitian following with the following nutrition therapy plan: 1.) Modify boost TID 2.) Encourage oral intakes Medication Ordered/Consults/Labs/Tests Ordered: 07/18: Delirium precautions ordered. Seroquel ordered 100 mg QHS and 50 mg q4PRN. Zyprexa 5 PO mg vs10 mg IV - TID PRN if needed. UDS ordered. Will order high dosed Thiamine. Will order addiction consult. Gabapentin 300 mg TID ordered for withdrawal symptoms. 07/19: Increase quetiapine to 100mg TID. [employer] dose was 800mg qHS. UDS+ for amphetamines. 07/20: Will give Seroquel 200mg at bedtime this edil then combine doses / change dose to 400mg po qhs. Will titrate to [employer] dose of 800mg po qhs as tolerated / indicated. Hold Lexapro for now. He has not been consistently taking it. Increase Neurontin to 600mg po TID. Offer Zyprexa 10mg po BID PRN. Continue CIWA protocol w PRN Valium and PRN Clonidine. 07/21: Lidocaine patch daily. Medicine consult if [facility] is issued. 07/22: Medicine consult for chronic back pain management. Increase Seroquel to 500mg po qhs. D/c PRNMelatonin and replace w PRN Benadryl. 07/23: Increase Seroquel to 600mg po qhs. Per his request, change Flexeril 10mg from TID PRN to TID.Will avoid Requip for RLS as it could worsen his DC sxs. Instead, will increase Neurontin to 900mg po TID. Spiritual care consult ordered. 07/24: Advance Seroquel to 700mg po qhs. Add Trazodone 50mg po qhs + 50mg po qhs PRN. Changed Benadryl to PRN itching only as this could worsen RLS, if that is truly what he has. Will discuss the possibility of akathisia (vs RLS) tomorrow. 07/25: Increase Seroquel to his [employer] dose of 800mg po qhs. Add a 2nd Lidocaine patch. Maximize daily APAP dose by allowing a daily PRN dose to his TID scheduled APAP. Pain Management consult placed. Trial Cogentin 1mg po BID for possible akathisia. D/c PRN Benadryl as he has Trazodone available. D/c CIWA. 07/26: MONTEZ Burr, may consider non-cardioselective beta messi in place of Toprol (ie. Inderal) for better akathisia coverage if RLS symptoms do not improve with increased Gabapentin. 07/27: Desonide cream BID for dermatitis. 07/28: Scheduled Robaxin 750 mg hs per pt request. 07/29 -- : No change. 08/01: EKG 08/02 AM. Amitriptyline to 100 mg hs. 08/02: No change 08/03: No change Milieu Management: Admit to: [facility] Legal: >> [facility] (prelim 07/29) Acuity level: Red (caution - at risk, monitored for safety) Encouraged the patient to participate in unit activities. Level of Observation: No additional monitoring needed RE-CERTIFICATION & RISK ASSESSMENT The patient continues to need, on a daily basis, active inpatient psychiatric treatment for ongoingdiagnostic assessment and treatment of the following symptoms: AH, paranoia, substance withdrawal, and possible SI w possible SA prior to admission. The treatment can reasonably be expected to improve the patient's condition. Estimated length of stay is 14 days. Anticipated disposition: home vs care home vs [facility] tx Risk Assessment: assault: Medium - paranoid Suicide Risk: Low Patient Strengths: willing to take medications Charlene Lee APRN, CNP * Becca Walker RN - 08/03/2023 9:29 AM CDT Pt has been out on the unit social with select peers. Pt was medication complaint. Pt requested Robaxin first thing this morning. Pt was upset about his eval comminentment paperwork stating the information they put in there about him was false. Pt requesting to speak to the SW or he's going over the teams head to get answers. Denies any distrubed thoughts or thoughts of self harm. Pt requested prn Robaxin at 1450 for back pain. * Charlene Lee APRN, CNP - 08/03/2023 8:54 AM CDT [facility] Psychiatry Progress Note PATIENT NAME: Nicanor Alvarado DATE OF SERVICE: 08/03/2023 ATTENDING PRACTITIONER: Charlene Lee APRN, CNP HOSPITAL DAY # 14 CHIEF COMPLAINT subsequent inpatient psychiatric encounter INTERVAL HISTORY Nicanor Alvarado was seen in the dinning room alongside CONCRETE ENGINEERING TECHNICIAN-resident. Pt states he is stressed. He reports he did use a meth which led to his hospitalization. He states I did too much meds for the last 5-6 months. He continue he is bored and has being doing a lot of thinking about his son. She shared losing one of his sons alcohol and ?suicide while he was at an in-patient treatment center. He states since then he being dealing with lot of guilt and self shaming. He is worried that he could lose his son again while in treatment. Discussed addiction and need for support to as be more supportive to his son who also struggles with similar addiction. Pt argues that being in-patient will limithis ability to support his adult son. He argues his problem is not the use of meth rather it is alcohol. He believes he can desist the urge to use drugs. Pt shared feels of fear and anxiety about thepossibility of his 2nd son dying while in treatment. He is open to treatment but open to 1-2 monthsinstead of 3 months. Discussed the significance of in-patient treatment how the pt can only help his son if he is inebriated. Pt shares he has being unable to sleep for several months. He states the only thing that helped wasXanax. He states he gets it form a reliable dealer and it comes sealed. He takes 2 mg at HS which has help him sleep. REVIEW OF SYSTEMS Constitutional: did not endorse physical health concerns aside from as discussed above + chronic back pain Psychiatric: denied thoughts of self harm, SI, HI, AH, and/or VH; see above Medication side effects: none endorsed CHART REVIEW & MULTIDISCIPLINARY TEAM MEETING Met with the multidisciplinary treatment team and discussed care and treatment planning. RN Report: Subjective: I'm bored. I've been here for two weeks and it's so boring. Objective: Patient was present on the unit much of the shift, mostly watching tv. He spent a brief amount of time in the comfort room. Denied SI, HI, AH, VH. Patient told web content writer about the various surgeries and injuries he has had in his life. Manager Convention asked if these injuries were in the presence of alcohol or substances, given the history he had disclosed in the conversation, and the patient denied, stating the injuries were just from life. Patient declined cream at hs, but took the rest of hismeds. No requests for prn medications this shift. Reported back pain as 3/10 when given scheduled acetaminophen. No medication side effects reported or observed. SW Report: reviewed and discussed Group attendance and participation: / OT attended PRN medications: reviewed MAR OBJECTIVE Hours of Sleep: Patient Vitals for the past 72 hrs: Sleep Hours 08/03/23 0615 7.8 HOURS 08/02/23 2238 2.3 HOURS 08/02/23 1449 0.5 HOURS 08/02/23 0615 7.8 HOURS 08/01/23 2241 0.5 HOURS 08/01/23 1500 1 HOURS 08/01/23 0657 7.5 HOURS 07/31/23 2229 1.3 HOURS 07/31/23 1500 0.3 HOURS LABS: No results found for this or any previous visit (from the past 24 hour(s)). Current Facility-Administered Medications Medication Dose Route Frequency acetaminophen (TYLENOL) tablet 1,000 mg 1,000 mg Oral DAILY PRN acetaminophen (TYLENOL) tablet 1,000 mg 1,000 mg Oral TID amitriptyline (ELAVIL) tablet 100 mg 100 mg Oral At Bedtime amLODIPine (NORVASC) tablet 5 mg 5 mg Oral Daily aspirin chewable tablet 81 mg 81 mg Oral Daily atorvastatin (LIPITOR) tablet 20 mg 20 mg Oral Evening senna (SENOKOT) tablet 2 Tablet 2 Tablet Oral BID PRN And polyethylene glycol (MIRALAX) oral powder 17 g 17 g Oral DAILY PRN And bisacodyl (DULCOLAX) rectal suppository 10 mg 10 mg Rectal DAILY PRN calcium carbonate (TUMS) chewable tablet 1,000 mg 1,000 mg Oral Q4H PRN desonide (DESOWEN) 0.05 % cream Topical BID diclofenac (VOLTAREN) gel 2 g 2 g Topical QID PRN diphenhydrAMINE (BENADRYL) capsule 50 mg 50 mg Oral At Bedtime diphenhydrAMINE (BENADRYL) capsule 50 mg 50 mg Oral DAILY PRN folic acid tablet 1 mg 1 mg Oral Daily gabapentin (NEURONTIN) capsule 1,200 mg 1,200 mg Oral TID lidocaine (ASPERCREAM) 4 % patch 2 Patch 2 Patch Transdermal Daily lidocaine (XYLOCAINE) 5 % ointment Topical TID PRN methocarbamol (ROBAXIN) tablet 750 mg 750 mg Oral TID PRN methocarbamol (ROBAXIN) tablet 750 mg 750 mg Oral At Bedtime metoprolol succinate (TOPROL XL) extended release tablet 25 mg 25 mg Oral Daily nicotine (COMMIT) lozenge 2 mg 2 mg Oral Q1H PRN Or nicotine (NICORETTE) gum 2 mg 2 mg Oral Q1H PRN OLANZapine (ZyPREXA ZYDIS) disintegrating tablet 10 mg 10 mg Oral BID PRN pantoprazole DR (PROTONIX) tablet 40 mg 40 mg Oral Daily at 6 am QUEtiapine (SEROquel) tablet 800 mg 800 mg Oral At Bedtime tamsulosin (FLOMAX) capsule 0.4 mg 0.4 mg Oral Daily after a meal thiamine (VITAMIN B-1) tablet 100 mg 100 mg Oral Daily Food intake: Amount of Diet Consumed (last 3 days) Date/Time Intake (%) 08/02/23 1700 Breakfast;Dinner 08/02/23 1200 100%;Lunch 08/02/23 0838 100%;Breakfast 08/01/23 1700 100%;Dinner 08/01/23 1200 100%;Lunch 08/01/23 0800 100%;Breakfast 07/31/23 1700 100%;Dinner 07/31/23 1200 100%;Lunch 07/31/23 0846 100%;Breakfast ALLERGY No Known Allergies MENTAL STATUS EXAM Filed Vitals: 08/01/23 0900 08/01/23 1600 08/02/23 0850 08/02/23 1621 BP: (!) 139/99 (!) 139/90 (!) 146/91 Pulse: 85 78 89 Resp: Temp: 98.4 ??F (36.9 ??C) 98.7 ??F (37.1 ??C) 97.4 ??F (36.3 ??C) TempSrc: Temporal Artery Skin Oral SpO2: 100% 99% 97% Weight: 90 kg (198 lb 6.4 oz) Height: Appearance: alert, intermittent eye contact, wearing scrubs, adequate grooming, appears older than stated age Behavior: engaged, needy, med seeking, more elevated and animated Motor: restless Gait and Station: unimpaired Speech: normal in rate, normal to loud in volume, hyper-verbal / over-inclusive Language: intact Thought process: largely linear Thought content: denied thoughts of self harm, SI, HI, +AH (but pleasant/encouraging), no VH; +paranoia re demons ? Associations: grossly intact Mood: stressed Affect: anxious, less intense/irritable Orientation: grossly oriented Attention: intact Memory: impaired Insight: poor Judgment: poor CONSULTATION HOSPITAL MEDICINE, 07/24/23: Assessment / Recommendations Follow up on labs show creat 0.96, returned to normal range and resolved USAMA. K is 5.1 but sample hemolyzed. med consulted on 07/23/23 because of chronic back/neck/shoulder pain. To me, pt reports chronic low back, B/L hip, and shoulder pain. Frustrated that doctors will not prescribe him opioids, and that they recommend against diclofenac due to kidney issues. 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 Although from a kidney perspective it may be safe to use NSAIDs, danny for an acute/short term need,I still do not believe this is the best nursing home medication for this patient for pain control moreso because of his cardiac risks with longstanding HLD, HTN, age, gender. In several studies, NSAIDshave shown to further increase the risk for thrombotic CV events as well as bleeding events. He is on ASA and addition of NSAID will increase risk of GI bleeding, as well. No current red flag symptoms for neck/back/shoulder pain, actually appears more controlled than previously per patient's report/chart review. Plan: - gabapentin has been helpful - continue 600 mg TID - lidocaine patch lower back has been helpful - continue daily; also offer additional lidocaine patch for neck or shoulder pain if pt desires - tylenol 650 mg prn changed to 1000 mg TID scheduled - diclofenac gel ordered instead to use topically as less systemic absorption - Given patient's chronic difficult to control pain and his h/o of self medicating with meds he buys off internet, I do think it is important to find a pain regimen that will control pt's chronic pain in a meaningful way so that he is less likely to use the internet to buy pills that are not prescribed to him - given it is the weekend, pain team is not available, but would consider primary team consult them and/or send OP referral to pain clinic for patient at hospital discharge. Pain team was consulted during a previous admission in May 2023, but he was not interested in any options other than opioids at that time. He did not ask me about opioids during our visit, so I believe he may nowbe open to more options, perhaps even intraarticular injections for shoulder/hip/back pain. med will sign off. Please reach out with any questions/concerns. Orin Nelson PA-C PAIN MANAGEMENT, 07/25: TREATMENT RECOMMENDATIONS/PLAN: Increase gabapentin to 1200mg TID Elavil 50mg QHS for sleep and nerve pain Change flexeril to robaxin 750 mg QID PRN NSAIDS could be considered in the future. Overall high risk patient with severe substance use disorder Will add non-opioid adjuvants. I did talk to him about suboxone; since he doesn't have opioid use disorder, this would not be my first preference. However, I would avoid pure opioid agonists at this time. ASSESSMENT AND RECOMMENDATIONS DISCUSSED WITH: Kristin Rutledge PA-C Thank you for consulting the Inpatient Pain Management Service. Please contact me with any questions or concerns. Aaron LEVY Nicanor Alvarado is a 57 y.o. male who has been admitted to station [facility] for AH, paranoia, substance withdrawal, and possible [...] his room over the weekend. Admitted to [facility]: 07/20: Restless on exam. Reported +AH and +paranoia (under investigation - which he is starting toquestion as the truth). Less disorganized as compared to when on Medicine. He said he was not really sure about the events [employer]. He drinks alcohol heavily, nearly 3L of [place] rum per week. He has been prescribed Lexapro, but he is not consistent w taking it. Sometimes I need more, referring to self medicating. He used methamphetamine [employer]. He said he has +AH at his baseline, but while using methamphetamine, the +AH escalated and, it got bad. Someone could have . It all seemed so real. He said he began to think that he would be better off if he just used all of the methamph etamine, so he used some IV. His paranoia escalated and he began to feel like someone was going to come through his door, so I ate the rest of the bag b/c I thought I would need the rage and energy to fight them off. Guarded at times. Hesitantly, he denied having SI and he denied the [employer] event asa SA. 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 When initially in the ED, he reported +SI (also while on Medicine) and, when questioned about ingestion, he replied w not enough. Per chart review from the 05/2023 Medicine admission (admitted for erratic driving / legal blood draw, while in the ED he had a syncopal episode and required Medicine admission then transfer to [facility]): He reports that he had about 2 hospitalizations in the past month. One in [facility] (04/24/2022) for acute toxic encephalopathy, drug overdose (cannabinoids, methamphetamine), and alcohol withdrawal w/ delirium tremens which required large amount of benzo. He says he had another hospitalization in [place]. He reports that one of these hospitalizations led to ICU stay and he was told that his kidney were failing, but no detailed records of outside hospital stay are available on admission. 07/21: Restless, argumentative, anxious, irritable, and illogical. He is agreeable to [facility] tx, especially to access psychotherapy, knowing it will likely eventually be court ordered. However, he also stated that he has no intentions of quitting alcohol all together, but only cutting back, b/c of his chronic pain. Additionally, he is unwilling to stay in the hospital beyond his 72h hold, in order tofacilitate a door to door transfer to [facility]. He was educated on his risk of relapse and reminded of his recent hospitalizations, related to use / overdosing. Pt was reminded that he himself stated someone could have in relation to the events prior to this admission. He does not see his drinking as a problem, stating, I don't drive. Manager Convention noted that he recently missed a court date for aDUI charge and, last hospitalization here, he was brought here for a legal blood draw after being stopped for erratic driving. When asked about the pill bottles that were scattered around him, when found [employer], he could not give an explanation. Will file a petition for civil commitment. 07/22: Quite tense, irritable, and rude on approach. Said he wants to d/c directly to [facility] he suspects there must be a bench warrant issued for his arrest d/t missing a DUI court date a few weeks back. He slept better, but asked for PRN Benadryl instead of PRN Melatonin. Thought processwas linear. No overt paranoia. Reported +AH last edil. [facility] is supporting petition for commitment. 07/23: He is frustrated w not being able to access an opioid or Voltaren for his chronic pain. He has no insight into risk / benefit considerations. He is resistant to any treatment that takes more effort than popping a pill. He reluctantly agreed to a pain medicine consult. He was noted to be diaphoretic, but has not been scoring high enough on CIWA to warrant PRN BZD. He talked at length about his oldest son's by hanging and about how he has struggled in the aftermath and has failed to adequately support his second son over the years. His second son has attempted suicide numerous timesand is currently in [facility] tx. He added, I must before him. The pt talked about his hinduism bel iefs, about not believing in suicide, but having come to the conclusion that even someone who does not believe in suicide can get to the point of attempting suicide. He denied thoughts of self harm, SI, HI, and VH. He reported +AH and +tactile hallucinations >> hypnagogic-like. Affect was anxious, tense, and irritable. 07/24: No diaphoresis today. Using PRNs for sleep. Denied further AH, VH, or tactile hallucinations.(However, his report of hallucinations varies from person to person.) Agreeable to med trials for various concerns, but tends to want to immediately jump to large doses. Anxious, intense at times, and restless. Thought process is largely linear. Denied SI / HI. He mentioned this hospitalization as the 4th time he's been in the ICU in as many months. 07/25: More elevated, animated, intense, and irritable. Continues restless. Med seeking - more of (to include opioids, BZD, and now stimulants, but also other more benign meds) - and wanting to go straight to high doses. He is a very inconsistent historian w details changing from day to day, person to person. Memory impairment is noted. He noted that he did not trash his kidneys as badly prior to this admission as compared to his other 3 recent admissions. He minimized the significance of his past renal injury and dismissed the warnings he has received by healthcare professionals re the risks to his vital organs. He called them over-dramatic. Denied AH / SI. +Paranoia re demons? Hyper-verbal. 07/26: Continued fixation on medications, feels he is in need of something additional for both pain and sleep -- pt offers diclofenac and Xanax as effective interventions, but understanding when web content writer offered renal concerns with diclofenac and habit-forming tendencies with Xanax. Pt hopeful for Benadryl for sleep which was agreed upon. Discussed Gabapentin additionally as options for both pain, sleep and RLS. 07/27: Less intense, irritable than yesterday and reporting sufficient sleep for the first time in years. Generally fixated on pain, medication options in case things fail down the road during current hospitalization. Apart from this, pt occasionally offers comments about how Xanax and opiate medications would simplify my long med list, but redirectable. 07/28: Largely unchanged, though briefly frustrated with not having Robaxin scheduled. Will do so moving forward per his request. Feels ready for CD referrals, aware that final commitment hearing is not until next week. 07/29: Planning out possible medication changes on a daily basis, frequently asks what next step is if certain medications do not work for him long-term, additionally routes interview back to discussion of pain/diclofenac several times throughout interaction. Very focused on medication regimen schedule. 07/30: Continued fixation on possible medication options moving forward, today mostly surrounding safety profile of medications with alcohol use. Additionally reported voices over the last couple of days, previously withheld from treatment team as he thought this would result in Seroquel being takenaway. 07/31: Unchanged; required. Robaxin last night for sleep, had difficulty sleeping through the night for 1st time in several days. Agreed to keep medications as are for now, revisit sleep augmentation if issues persist. Otherwise, no changes. 08/01: Persistent request to have suicidal ideation/status clarified by current team, fearful of having this label carried over into time at treatment. Otherwise, reported worse sleep for the past twodays and would appreciate increase in amitriptyline which web content writer agreed to. 08/02: Pt calm, cooperative and medication compliant. Denies psych symptoms. He reports being in agreement with need for CD treatment but argues 3 months is too long as he is the primary provider for his adult son who also struggles with alcohol use/abuse. Discussed benefits for in-patient and hopefully pt will be able to help his son through addiction but the pt argues other james. He believes hisproblem is not meth rather alcohol and he can limit himself. Pt is argumentative and has no insighton dangerous behaviors poses increased risk. Reports adequate sleep since admission. DIAGNOSES & PLAN Principal Psychiatric / Substance Use Diagnoses: - encephalopathy s/p ingestion: improved - bipolar disorder w psychosis vs SCAD by hx - r/o substance induced psychosis - alcohol use disorder, severe - methamphetamine use disorder, severe - BZD use disorder, severe - alcohol / BZD withdrawal Medical Concerns to be addressed: - USAMA: resolved - ?element of CKD? - mild rhabdomyolysis: improved - chronic back pain: see Medicine consult - HTN: restarted [employer] medications - GERD: restarted PPI - HLD: restarted statin - LUTS: flomax - Patient with moderate malnutrition in the context of social/environmental circumstances during hospital stay and remains with at risk for malnutrition. Patient requiring additional resources due todegree of malnutrition during hospital stay. Dietitian following with the following nutrition therapy plan: 1.) Modify boost TID 2.) Encourage oral intakes Medication Ordered/Consults/Labs/Tests Ordered: 07/18: Delirium precautions ordered. Seroquel ordered 100 mg QHS and 50 mg q4PRN. Zyprexa 5 PO mg vs10 mg IV - TID PRN if needed. UDS ordered. Will order high dosed Thiamine. Will order addiction consult. Gabapentin 300 mg TID ordered for withdrawal symptoms. 07/19: Increase quetiapine to 100mg TID. [employer] dose was 800mg qHS. UDS+ for amphetamines. 07/20: Will give Seroquel 200mg at bedtime this edil then combine doses / change dose to 400mg po qhs. Will titrate to [employer] dose of 800mg po qhs as tolerated / indicated. Hold Lexapro for now. He has not been consistently taking it. Increase Neurontin to 600mg po TID. Offer Zyprexa 10mg po BID PRN. Continue CIWA protocol w PRN Valium and PRN Clonidine. 07/21: Lidocaine patch daily. Medicine consult if PC is issued. 07/22: Medicine consult for chronic back pain management. Increase Seroquel to 500mg po qhs. D/c PRNMelatonin and replace w PRN Benadryl. 07/23: Increase Seroquel to 600mg po qhs. Per his request, change Flexeril 10mg from TID PRN to TID.Will avoid Requip for RLS as it could worsen his DC sxs. Instead, will increase Neurontin to 900mg po TID. Spiritual care consult ordered. 07/24: Advance Seroquel to 700mg po qhs. Add Trazodone 50mg po qhs + 50mg po qhs PRN. Changed Benadryl to PRN itching only as this could worsen RLS, if that is truly what he has. Will discuss the possibility of akathisia (vs RLS) tomorrow. 07/25: Increase Seroquel to his [employer] dose of 800mg po qhs. Add a 2nd Lidocaine patch. Maximize daily APAP dose by allowing a daily PRN dose to his TID scheduled APAP. Pain Management consult placed. Trial Cogentin 1mg po BID for possible akathisia. D/c PRN Benadryl as he has Trazodone available. D/c CIWA. 07/26: DC Aminah, may consider non-cardioselective beta messi in place of Toprol (ie. Inderal) for better akathisia coverage if RLS symptoms do not improve with increased Gabapentin. 07/27: Desonide cream BID for dermatitis. 07/28: Scheduled Robaxin 750 mg hs per pt request. 07/29 -- : No change. 08/01: EKG 08/02 AM. Amitriptyline to 100 mg hs. 08/02: No change Milieu Management: Admit to: [facility] Legal: >> [facility] (prelim 07/29) Acuity level: Red (caution - at risk, monitored for safety) Encouraged the patient to participate in unit activities. Level of Observation: No additional monitoring needed RE-CERTIFICATION & RISK ASSESSMENT The patient continues to need, on a daily basis, active inpatient psychiatric treatment for ongoingdiagnostic assessment and treatment of the following symptoms: AH, paranoia, substance withdrawal, and possible SI w possible SA prior to admission. The treatment can reasonably be expected to improve the patient's condition. Estimated length of stay is 14 days. Anticipated disposition: home vs care home vs [facility] tx Risk Assessment: assault: Medium - paranoid Suicide Risk: Low Patient Strengths: willing to take medications Charlene Lee APRN, JENNY * Becca Walker RN - 08/02/2023 8:51 AM CDT Pt has been out on the unit social with select peers. Pt was medication complaint. Pt requested Robaxin first thing this morning. Denies any distrubed thoughts or thoughts of self harm. Pt requested prn Robaxin at 1450 for back pain. * Jaden Wetzel PA-C - 08/02/2023 8:37 AM CDT [facility] Psychiatry Progress Note PATIENT NAME: Nicanor Alvarado DATE OF SERVICE: 08/02/2023 ATTENDING PRACTITIONER: Jaden Wetzel PA-C HOSPITAL DAY # 13 CHIEF COMPLAINT subsequent inpatient psychiatric encounter INTERVAL HISTORY Nicanor Alvarado was seen in f/u by web content writer alongside MD, where he agree to interview, says he is again having difficulty sleeping and would like something changed. Agreeable to amitriptyline increase. Apart from this, pt feels he is doing well on the unit. Wanted clarification published in notes that he was NOT suicidal at time of admission, that there may be a misunderstanding as several pills were found near him at this time. States that if urine, blood was tested this would be proven. Askedwriter to change notes at time of admission, educated that team could not change other providers' documentation to which he replied but you can add on to it, right? Manager Convention relayed that this discussion would be charted and web content writer would check if labs were performed at time of admission, which he was happy to hear. States he has concerns he will be labeled as a suicide risk at treatment and this will prevent certain amenities. Otherwise, denies concerns; feels pain is well-controlled and mood is stable. No issues reported with voices today, agreed to terminate interview at this time. REVIEW OF SYSTEMS Constitutional: did not endorse physical health concerns aside from as discussed above + chronic back pain Psychiatric: denied thoughts of self harm, SI, HI, AH, and/or VH; see above Medication side effects: none endorsed CHART REVIEW & MULTIDISCIPLINARY TEAM MEETING Met with the multidisciplinary treatment team and discussed care and treatment planning. RN Report: Subjective: What time am I going to get my Robaxin? How long am I going to stay in here? Objective: Met pt in his room while he was lying down in bed. The pt was calm and cooperative. Compliant with medications. Denies VH/SI/HI. Again, endorsed minimal auditory hallucination that comes and go. Stated back and neck pain is not bad today. Attended Zagster. Behavior controlled. Ate 100% of his dinner. 15 minutes safety check ongoing. SW Report: reviewed and discussed Group attendance and participation: 2/3 OT PRN medications: reviewed MAR OBJECTIVE Hours of Sleep: Patient Vitals for the past 72 hrs: Sleep Hours 08/02/23 0615 7.8 HOURS 08/01/23 2241 0.5 HOURS 08/01/23 1500 1 HOURS 08/01/23 0657 7.5 HOURS 07/31/23 2229 1.3 HOURS 07/31/23 1500 0.3 HOURS 07/31/23 0631 6.3 HOURS 07/30/23 2223 1.3 HOURS 07/30/23 1508 1 HOURS LABS: No results found for this or any previous visit (from the past 24 hour(s)). Current Facility-Administered Medications Medication Dose Route Frequency acetaminophen (TYLENOL) tablet 1,000 mg 1,000 mg Oral DAILY PRN acetaminophen (TYLENOL) tablet 1,000 mg 1,000 mg Oral TID amitriptyline (ELAVIL) tablet 50 mg 50 mg Oral At Bedtime amLODIPine (NORVASC) tablet 5 mg 5 mg Oral Daily aspirin chewable tablet 81 mg 81 mg Oral Daily atorvastatin (LIPITOR) tablet 20 mg 20 mg Oral Evening senna (SENOKOT) tablet 2 Tablet 2 Tablet Oral BID PRN And polyethylene glycol (MIRALAX) oral powder 17 g 17 g Oral DAILY PRN And bisacodyl (DULCOLAX) rectal suppository 10 mg 10 mg Rectal DAILY PRN calcium carbonate (TUMS) chewable tablet 1,000 mg 1,000 mg Oral Q4H PRN desonide (DESOWEN) 0.05 % cream Topical BID diclofenac (VOLTAREN) gel 2 g 2 g Topical QID PRN diphenhydrAMINE (BENADRYL) capsule 50 mg 50 mg Oral At Bedtime diphenhydrAMINE (BENADRYL) capsule 50 mg 50 mg Oral DAILY PRN folic acid tablet 1 mg 1 mg Oral Daily gabapentin (NEURONTIN) capsule 1,200 mg 1,200 mg Oral TID lidocaine (ASPERCREAM) 4 % patch 2 Patch 2 Patch Transdermal Daily lidocaine (XYLOCAINE) 5 % ointment Topical TID PRN methocarbamol (ROBAXIN) tablet 750 mg 750 mg Oral TID PRN methocarbamol (ROBAXIN) tablet 750 mg 750 mg Oral At Bedtime metoprolol succinate (TOPROL XL) extended release tablet 25 mg 25 mg Oral Daily nicotine (COMMIT) lozenge 2 mg 2 mg Oral Q1H PRN Or nicotine (NICORETTE) gum 2 mg 2 mg Oral Q1H PRN OLANZapine (ZyPREXA ZYDIS) disintegrating tablet 10 mg 10 mg Oral BID PRN pantoprazole DR (PROTONIX) tablet 40 mg 40 mg Oral Daily at 6 am QUEtiapine (SEROquel) tablet 800 mg 800 mg Oral At Bedtime tamsulosin (FLOMAX) capsule 0.4 mg 0.4 mg Oral Daily after a meal thiamine (VITAMIN B-1) tablet 100 mg 100 mg Oral Daily Food intake: Amount of Diet Consumed (last 3 days) Date/Time Intake (%) 08/01/23 1700 100%;Dinner 08/01/23 1200 100%;Lunch 08/01/23 0800 100%;Breakfast 07/31/23 1700 100%;Dinner 07/31/23 1200 100%;Lunch 07/31/23 0846 100%;Breakfast 07/30/23 1725 100%;Dinner 07/30/23 1214 100%;Lunch 07/30/23 0840 100%;Breakfast ALLERGY No Known Allergies MENTAL STATUS EXAM Filed Vitals: 07/31/23 1603 08/01/23 0830 08/01/23 0900 08/01/23 1600 BP: (!) 152/92 (!) 143/94 (!) 139/99 Pulse: 92 90 85 Resp: 16 16 16 Temp: 98.1 ??F (36.7 ??C) 97.6 ??F (36.4 ??C) 98.4 ??F (36.9 ??C) TempSrc: Temporal Artery Temporal Artery Temporal Artery SpO2: 98% 100% 100% Weight: 90 kg (198 lb 6.4 oz) Height: Appearance: alert, intermittent eye contact, wearing scrubs, adequate grooming, appears older than stated age Behavior: engaged, needy, med seeking, more elevated and animated Motor: restless Gait and Station: unimpaired Speech: normal in rate, normal to loud in volume, hyper-verbal / over-inclusive Language: intact Thought process: largely linear Thought content: denied thoughts of self harm, SI, HI, +AH (but pleasant/encouraging), no VH; +paranoia re demons ? Associations: grossly intact Mood: good Affect: anxious, less intense/irritable Orientation: grossly oriented Attention: intact Memory: impaired Insight: poor Judgment: poor CONSULTATION [facility], 07/24/23: Assessment / Recommendations Follow up on labs show creat 0.96, returned to normal range and resolved USAMA. K is 5.1 but sample hemolyzed. med consulted on 07/23/23 because of chronic back/neck/shoulder pain. To me, pt reports chronic low back, B/L hip, and shoulder pain. Frustrated that doctors will not prescribe him opioids, and that they recommend against diclofenac due to kidney issues. 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 Although from a kidney perspective it may be safe to use NSAIDs, danny for an acute/short term need,I still do not believe this is the best nursing home medication for this patient for pain control moreso because of his cardiac risks with longstanding HLD, HTN, age, gender. In several studies, NSAIDshave shown to further increase the risk for thrombotic CV events as well as bleeding events. He is on ASA and addition of NSAID will increase risk of GI bleeding, as well. No current red flag symptoms for neck/back/shoulder pain, actually appears more controlled than previously per patient's report/chart review. Plan: - gabapentin has been helpful - continue 600 mg TID - lidocaine patch lower back has been helpful - continue daily; also offer additional lidocaine patch for neck or shoulder pain if pt desires - tylenol 650 mg prn changed to 1000 mg TID scheduled - diclofenac gel ordered instead to use topically as less systemic absorption - Given patient's chronic difficult to control pain and his h/o of self medicating with meds he buys off internet, I do think it is important to find a pain regimen that will control pt's chronic pain in a meaningful way so that he is less likely to use the internet to buy pills that are not prescribed to him - given it is the weekend, pain team is not available, but would consider primary team consult them and/or send OP referral to pain clinic for patient at hospital discharge. Pain team was consulted during a previous admission in May 2023, but he was not interested in any options other than opioids at that time. He did not ask me about opioids during our visit, so I believe he may nowbe open to more options, perhaps even intraarticular injections for shoulder/hip/back pain. [facility] will sign off. Please reach out with any questions/concerns. Orin Nelson PA-C PAIN MANAGEMENT, 07/25: TREATMENT RECOMMENDATIONS/PLAN: Increase gabapentin to 1200mg TID Elavil 50mg QHS for sleep and nerve pain Change flexeril to robaxin 750 mg QID PRN NSAIDS could be considered in the future. Overall high risk patient with severe substance use disorder Will add non-opioid adjuvants. I did talk to him about suboxone; since he doesn't have opioid use disorder, this would not be my first preference. However, I would avoid pure opioid agonists at this time. ASSESSMENT AND RECOMMENDATIONS DISCUSSED WITH: Kristin Rutledge PA-C Thank you for consulting the Inpatient Pain Management Service. Please contact me with any questions or concerns. Aaron Alvarado is a 57 y.o. male who has been admitted to station [facility] for AH, paranoia, substance withdrawal, and possible [...] his room over the weekend. Admitted to [facility]: 07/20: Restless on exam. Reported +AH and +paranoia (under investigation - which he is starting toquestion as the truth). Less disorganized as compared to when on Medicine. He said he was not really sure about the events [employer]. He drinks alcohol heavily, nearly 3L of [employer] rum per week. He has been prescribed Lexapro, but he is not consistent w taking it. Sometimes I need more, referring to self medicating. He used methamphetamine [employer]. He said he has +AH at his baseline, but while using methamphetamine, the +AH escalated and, it got bad. Someone could have . It all seemed so real. He said he began to think that he would be better off if he just used all of the methamph etamine, so he used some IV. His paranoia escalated and he began to feel like someone was going to come through his door, so I ate the rest of the bag b/c I thought I would need the rage and energy to fight them off. Guarded at times. Hesitantly, he denied having SI and he denied the [employer] event asa SA. 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 When initially in the ED, he reported +SI (also while on Medicine) and, when questioned about ingestion, he replied w not enough. Per chart review from the 05/2023 Medicine admission (admitted for erratic driving / legal blood draw, while in the ED he had a syncopal episode and required Medicine admission then transfer to [facility]): He reports that he had about 2 hospitalizations in the past month. One in [facility] (04/24/2022) for acute toxic encephalopathy, drug overdose (cannabinoids, methamphetamine), and alcohol withdrawal w/ delirium tremens which required large amount of benzo. He says he had another hospitalization in [place]. He reports that one of these hospitalizations led to ICU stay and he was told that his kidney were failing, but no detailed records of outside hospital stay are available on admission. 07/21: Restless, argumentative, anxious, irritable, and illogical. He is agreeable to [facility] tx, especially to access psychotherapy, knowing it will likely eventually be court ordered. However, he also stated that he has no intentions of quitting alcohol all together, but only cutting back, b/c of his chronic pain. Additionally, he is unwilling to stay in the hospital beyond his 72h hold, in order tofacilitate a door to door transfer to [facility] tx. He was educated on his risk of relapse and reminded of his recent hospitalizations, related to use / overdosing. Pt was reminded that he himself stated someone could have in relation to the events prior to this admission. He does not see his drinking as a problem, stating, I don't drive. Manager Convention noted that he recently missed a court date for aDUI charge and, last hospitalization here, he was brought here for a legal blood draw after being stopped for erratic driving. When asked about the pill bottles that were scattered around him, when found [employer], he could not give an explanation. Will file a petition for civil commitment. 07/22: Quite tense, irritable, and rude on approach. Said he wants to d/c directly to [facility] he suspects there must be a bench warrant issued for his arrest d/t missing a DUI court date a few weeks back. He slept better, but asked for PRN Benadryl instead of PRN Melatonin. Thought processwas linear. No overt paranoia. Reported +AH last edil. [facility] is supporting petition for commitment. 07/23: He is frustrated w not being able to access an opioid or Voltaren for his chronic pain. He has no insight into risk / benefit considerations. He is resistant to any treatment that takes more effort than popping a pill. He reluctantly agreed to a pain medicine consult. He was noted to be diaphoretic, but has not been scoring high enough on CIWA to warrant PRN BZD. He talked at length about his oldest son's by hanging and about how he has struggled in the aftermath and has failed to adequately support his second son over the years. His second son has attempted suicide numerous timesand is currently in [facility] tx. He added, I must before him. The pt talked about his hinduism bel iefs, about not believing in suicide, but having come to the conclusion that even someone who does not believe in suicide can get to the point of attempting suicide. He denied thoughts of self harm, SI, HI, and VH. He reported +AH and +tactile hallucinations >> hypnagogic-like. Affect was anxious, tense, and irritable. 07/24: No diaphoresis today. Using PRNs for sleep. Denied further AH, VH, or tactile hallucinations.(However, his report of hallucinations varies from person to person.) Agreeable to med trials for various concerns, but tends to want to immediately jump to large doses. Anxious, intense at times, and restless. Thought process is largely linear. Denied SI / HI. He mentioned this hospitalization as the 4th time he's been in the ICU in as many months. 07/25: More elevated, animated, intense, and irritable. Continues restless. Med seeking - more of (to include opioids, BZD, and now stimulants, but also other more benign meds) - and wanting to go straight to high doses. He is a very inconsistent historian w details changing from day to day, person to person. Memory impairment is noted. He noted that he did not trash his kidneys as badly prior to this admission as compared to his other 3 recent admissions. He minimized the significance of his past renal injury and dismissed the warnings he has received by healthcare professionals re the risks to his vital organs. He called them over-dramatic. Denied AH / SI. +Paranoia re demons? Hyper-verbal. 07/26: Continued fixation on medications, feels he is in need of something additional for both pain and sleep -- pt offers diclofenac and Xanax as effective interventions, but understanding when web content writer offered renal concerns with diclofenac and habit-forming tendencies with Xanax. Pt hopeful for Benadryl for sleep which was agreed upon. Discussed Gabapentin additionally as options for both pain, sleep and RLS. 07/27: Less intense, irritable than yesterday and reporting sufficient sleep for the first time in years. Generally fixated on pain, medication options in case things fail down the road during current hospitalization. Apart from this, pt occasionally offers comments about how Xanax and opiate medications would simplify my long med list, but redirectable. 07/28: Largely unchanged, though briefly frustrated with not having Robaxin scheduled. Will do so moving forward per his request. Feels ready for CD referrals, aware that final commitment hearing is not until next week. 07/29: Planning out possible medication changes on a daily basis, frequently asks what next step is if certain medications do not work for him long-term, additionally routes interview back to discussion of pain/diclofenac several times throughout interaction. Very focused on medication regimen schedule. 07/30: Continued fixation on possible medication options moving forward, today mostly surrounding safety profile of medications with alcohol use. Additionally reported voices over the last couple of days, previously withheld from treatment team as he thought this would result in Seroquel being takenaway. 07/31: Unchanged; required. Robaxin last night for sleep, had difficulty sleeping through the night for 1st time in several days. Agreed to keep medications as are for now, revisit sleep augmentation if issues persist. Otherwise, no changes. 08/01: Persistent request to have suicidal ideation/status clarified by current team, fearful of having this label carried over into time at treatment. Otherwise, reported worse sleep for the past twodays and would appreciate increase in amitriptyline which web content writer agreed to. DIAGNOSES & PLAN Principal Psychiatric / Substance Use Diagnoses: - encephalopathy s/p ingestion: improved - bipolar disorder w psychosis vs SCAD by hx - r/o substance induced psychosis - alcohol use disorder, severe - methamphetamine use disorder, severe - BZD use disorder, severe - alcohol / BZD withdrawal Medical Concerns to be addressed: - USAMA: resolved - ?element of CKD? - mild rhabdomyolysis: improved - chronic back pain: see Medicine consult - HTN: restarted [employer] medications - GERD: restarted PPI - HLD: restarted statin - LUTS: flomax - Patient with moderate malnutrition in the context of social/environmental circumstances during hospital stay and remains with at risk for malnutrition. Patient requiring additional resources due todegree of malnutrition during hospital stay. Dietitian following with the following nutrition therapy plan: 1.) Modify boost TID 2.) Encourage oral intakes Medication Ordered/Consults/Labs/Tests Ordered: 07/18: Delirium precautions ordered. Seroquel ordered 100 mg QHS and 50 mg q4PRN. Zyprexa 5 PO mg vs10 mg IV - TID PRN if needed. UDS ordered. Will order high dosed Thiamine. Will order addiction consult. Gabapentin 300 mg TID ordered for withdrawal symptoms. 07/19: Increase quetiapine to 100mg TID. [employer] dose was 800mg qHS. UDS+ for amphetamines. 07/20: Will give Seroquel 200mg at bedtime this edil then combine doses / change dose to 400mg po qhs. Will titrate to [employer] dose of 800mg po qhs as tolerated / indicated. Hold Lexapro for now. He has not been consistently taking it. Increase Neurontin to 600mg po TID. Offer Zyprexa 10mg po BID PRN. Continue CIWA protocol w PRN Valium and PRN Clonidine. 07/21: Lidocaine patch daily. Medicine consult if PC is issued. 07/22: Medicine consult for chronic back pain management. Increase Seroquel to 500mg po qhs. D/c PRNMelatonin and replace w PRN Benadryl. 07/23: Increase Seroquel to 600mg po qhs. Per his request, change Flexeril 10mg from TID PRN to TID.Will avoid Requip for RLS as it could worsen his DC sxs. Instead, will increase Neurontin to 900mg po TID. Spiritual care consult ordered. 07/24: Advance Seroquel to 700mg po qhs. Add Trazodone 50mg po qhs + 50mg po qhs PRN. Changed Benadryl to PRN itching only as this could worsen RLS, if that is truly what he has. Will discuss the possibility of akathisia (vs RLS) tomorrow. 07/25: Increase Seroquel to his [employer] dose of 800mg po qhs. Add a 2nd Lidocaine patch. Maximize daily APAP dose by allowing a daily PRN dose to his TID scheduled APAP. Pain Management consult placed. Trial Cogentin 1mg po BID for possible akathisia. D/c PRN Benadryl as he has Trazodone available. D/c CIWA. 07/26: DC Aminah, may consider non-cardioselective beta messi in place of Toprol (ie. Inderal) for better akathisia coverage if RLS symptoms do not improve with increased Gabapentin. 07/27: Desonide cream BID for dermatitis. 07/28: Scheduled Robaxin 750 mg hs per pt request. 07/29 -- : No change. 08/01: EKG 08/02 AM. Amitriptyline to 100 mg hs. Milieu Management: Admit to: [facility] Legal: >> [facility] (prelim 07/29) Acuity level: Red (caution - at risk, monitored for safety) Encouraged the patient to participate in unit activities. Level of Observation: No additional monitoring needed RE-CERTIFICATION & RISK ASSESSMENT The patient continues to need, on a daily basis, active inpatient psychiatric treatment for ongoingdiagnostic assessment and treatment of the following symptoms: AH, paranoia, substance withdrawal, and possible SI w possible SA prior to admission. The treatment can reasonably be expected to improve the patient's condition. Estimated length of stay is 14 days. Anticipated disposition: home vs care home vs [facility] tx Risk Assessment: assault: Medium - paranoid Suicide Risk: Low Patient Strengths: willing to take medications Patient was additionally evaluated in person by Dr. Crawley, who agrees with the above documentation and plan. Jaden Wetzel PA-C * Jaden Wetzel PA-C - 08/01/2023 8:31 AM CDT [facility] Psychiatry Progress Note PATIENT NAME: Nicanor Alvarado DATE OF SERVICE: 08/01/2023 ATTENDING PRACTITIONER: Jaden Wetzel PA-C HOSPITAL DAY # 12 CHIEF COMPLAINT subsequent inpatient psychiatric encounter INTERVAL HISTORY Nicanor Alvarado was seen in f/u by web content writer alongside MD, where he agree to interview in dining room. States he needed to have additional Robaxin yesterday overnight and had slightly worse sleep as aresult; otherwise denies concerns, aware that the team would not likely make medication changes based on one poor night of sleep but wanted this to be known. No other concerns endorsed; relayed [facility] information to pt given expressed grieving, depression he has dealt with over the years and pt was appreciative of this; did not know there were groups/resources for people strictly dealing with depression. Asked appropriate questions about this prior to termination of interview. REVIEW OF SYSTEMS Constitutional: did not endorse physical health concerns aside from as discussed above + chronic back pain Psychiatric: denied thoughts of self harm, SI, HI, AH, and/or VH; see above Medication side effects: none endorsed CHART REVIEW & MULTIDISCIPLINARY TEAM MEETING Met with the multidisciplinary treatment team and discussed care and treatment planning. RN Report: Subjective: My pain is not bad, Robaxin has helped. Objective: The pt was calm and cooperative. Compliant with medications. Denies VH/SI/HI. Endorsed minimal auditory hallucination. Stated pain level has improved since he started taking Robaxin. Visible on the unit and socialized with selective peers. Behaviorally controlled. Ate 100% of his dinner.15 minutes safety check ongoing. SW Report: reviewed and discussed Group attendance and participation: 2/3 OT PRN medications: reviewed MAR OBJECTIVE Hours of Sleep: Patient Vitals for the past 72 hrs: Sleep Hours 08/01/23 0657 7.5 HOURS 07/31/23 2229 1.3 HOURS 07/31/23 1500 0.3 HOURS 07/31/23 0631 6.3 HOURS 07/30/23 2223 1.3 HOURS 07/30/23 1508 1 HOURS 07/30/23 0622 7.3 HOURS 07/29/23 2308 1.3 HOURS 07/29/23 1436 1 HOURS LABS: No results found for this or any previous visit (from the past 24 hour(s)). Current Facility-Administered Medications Medication Dose Route Frequency acetaminophen (TYLENOL) tablet 1,000 mg 1,000 mg Oral DAILY PRN acetaminophen (TYLENOL) tablet 1,000 mg 1,000 mg Oral TID amitriptyline (ELAVIL) tablet 50 mg 50 mg Oral At Bedtime amLODIPine (NORVASC) tablet 5 mg 5 mg Oral Daily aspirin chewable tablet 81 mg 81 mg Oral Daily atorvastatin (LIPITOR) tablet 20 mg 20 mg Oral Evening senna (SENOKOT) tablet 2 Tablet 2 Tablet Oral BID PRN And polyethylene glycol (MIRALAX) oral powder 17 g 17 g Oral DAILY PRN And bisacodyl (DULCOLAX) rectal suppository 10 mg 10 mg Rectal DAILY PRN calcium carbonate (TUMS) chewable tablet 1,000 mg 1,000 mg Oral Q4H PRN desonide (DESOWEN) 0.05 % cream Topical BID diclofenac (VOLTAREN) gel 2 g 2 g Topical QID PRN diphenhydrAMINE (BENADRYL) capsule 50 mg 50 mg Oral At Bedtime diphenhydrAMINE (BENADRYL) capsule 50 mg 50 mg Oral DAILY PRN folic acid tablet 1 mg 1 mg Oral Daily gabapentin (NEURONTIN) capsule 1,200 mg 1,200 mg Oral TID lidocaine (ASPERCREAM) 4 % patch 2 Patch 2 Patch Transdermal Daily lidocaine (XYLOCAINE) 5 % ointment Topical TID PRN methocarbamol (ROBAXIN) tablet 750 mg 750 mg Oral TID PRN methocarbamol (ROBAXIN) tablet 750 mg 750 mg Oral At Bedtime metoprolol succinate (TOPROL XL) extended release tablet 25 mg 25 mg Oral Daily nicotine (COMMIT) lozenge 2 mg 2 mg Oral Q1H PRN Or nicotine (NICORETTE) gum 2 mg 2 mg Oral Q1H PRN OLANZapine (ZyPREXA ZYDIS) disintegrating tablet 10 mg 10 mg Oral BID PRN pantoprazole DR (PROTONIX) tablet 40 mg 40 mg Oral Daily at 6 am QUEtiapine (SEROquel) tablet 800 mg 800 mg Oral At Bedtime tamsulosin (FLOMAX) capsule 0.4 mg 0.4 mg Oral Daily after a meal thiamine (VITAMIN B-1) tablet 100 mg 100 mg Oral Daily Food intake: Amount of Diet Consumed (last 3 days) Date/Time Intake (%) 08/01/23 0800 100%;Breakfast 07/31/23 1700 100%;Dinner 07/31/23 1200 100%;Lunch 07/31/23 0846 100%;Breakfast 07/30/23 1725 100%;Dinner 07/30/23 1214 100%;Lunch 07/30/23 0840 100%;Breakfast 07/29/23 1700 100%;Dinner 07/29/23 1240 100%;Lunch 07/29/23 0816 100%;Breakfast ALLERGY No Known Allergies MENTAL STATUS EXAM Filed Vitals: 07/30/23 1132 07/30/23 1600 07/31/23 0800 07/31/23 1603 BP: (!) 147/91 (!) 149/86 (!) 160/96 (!) 152/92 Pulse: 90 93 92 Resp: Temp: 97.3 ??F (36.3 ??C) (!) 96.3 ??F (35.7 ??C) 98.1 ??F (36.7 ??C) TempSrc: Skin Skin Temporal Artery SpO2: 98% 99% 98% Weight: Height: Appearance: alert, intermittent eye contact, wearing scrubs, adequate grooming, appears older than stated age Behavior: engaged, needy, med seeking, more elevated and animated Motor: restless Gait and Station: unimpaired Speech: normal in rate, normal to loud in volume, hyper-verbal / over-inclusive Language: intact Thought process: largely linear Thought content: denied thoughts of self harm, SI, HI, +AH (but pleasant/encouraging), no VH; +paranoia re demons ? Associations: grossly intact Mood: Pretty good Affect: anxious, less intense/irritable Orientation: grossly oriented Attention: intact Memory: impaired Insight: poor Judgment: poor CONSULTATION HOSPITAL MEDICINE, 07/24/23: Assessment / Recommendations Follow up on labs show creat 0.96, returned to normal range and resolved USAMA. K is 5.1 but sample hemolyzed. med consulted on 07/23/23 because of chronic back/neck/shoulder pain. To me, pt reports chronic low back, B/L hip, and shoulder pain. Frustrated that doctors will not prescribe him opioids, and that they recommend against diclofenac due to kidney issues. 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 In several studies, NSAIDshave shown to further increase the risk for thrombotic CV events as well as bleeding events. He is on ASA and addition of NSAID will increase risk of GI bleeding, as well. No current red flag symptoms for neck/back/shoulder pain, actually appears more controlled than previously per patient's report/chart review. Plan: - gabapentin has been helpful - continue 600 mg TID - lidocaine patch lower back has been helpful - continue daily; also offer additional lidocaine patch for neck or shoulder pain if pt desires - tylenol 650 mg prn changed to 1000 mg TID scheduled - diclofenac gel ordered instead to use topically as less systemic absorption - Given patient's chronic difficult to control pain and his h/o of self medicating with meds he buys off internet, I do think it is important to find a pain regimen that will control pt's chronic pain in a meaningful way so that he is less likely to use the internet to buy pills that are not prescribed to him - given it is the weekend, pain team is not available, but would consider primary team consult them and/or send OP referral to pain clinic for patient at hospital discharge. Pain team was consulted during a previous admission in May 2023, but he was not interested in any options other than opioids at that time. He did not ask me about opioids during our visit, so I believe he may nowbe open to more options, perhaps even intraarticular injections for shoulder/hip/back pain. med will sign off. Please reach out with any questions/concerns. Orin Nelson PA-C PAIN MANAGEMENT, 07/25: TREATMENT RECOMMENDATIONS/PLAN: Increase gabapentin to 1200mg TID Elavil 50mg QHS for sleep and nerve pain Change flexeril to robaxin 750 mg QID PRN NSAIDS could be considered in the future. Overall high risk patient with severe substance use disorder Will add non-opioid adjuvants. I did talk to him about suboxone; since he doesn't have opioid use disorder, this would not be my first preference. However, I would avoid pure opioid agonists at this time. ASSESSMENT AND RECOMMENDATIONS DISCUSSED WITH: Kristin Rutledge PA-C Thank you for consulting the Inpatient Pain Management Service. Please contact me with any questions or concerns. Aaron Galicia M.D. CAM Alvarado is a 57 y.o. male who has been admitted to station [facility] for AH, paranoia, substance withdrawal, and possible [...] his room over the weekend. Admitted to [facility]: 07/20: Restless on exam. Reported +AH and +paranoia (under investigation - which he is starting toquestion as the truth). Less disorganized as compared to when on Medicine. He said he was not really sure about the events [employer]. He drinks alcohol heavily, nearly 3L of [place] rum per week. He has been prescribed Lexapro, but he is not consistent w taking it. Sometimes I need more, referring to self medicating. He used methamphetamine [employer]. He said he has +AH at his baseline, but while using methamphetamine, the +AH escalated and, it got bad. Someone could have . It all seemed so real. He said he began to think that he would be better off if he just used all of the methamph etamine, so he used some IV. His paranoia escalated and he began to feel like someone was going to come through his door, so I ate the rest of the bag b/c I thought I would need the rage and energy to fight them off. Guarded at times. Hesitantly, he denied having SI and he denied the [employer] event asa SA. 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 When initially in the ED, he reported +SI (also while on Medicine) and, when questioned about ingestion, he replied w not enough. Per chart review from the 05/2023 Medicine admission (admitted for erratic driving / legal blood draw, while in the ED he had a syncopal episode and required Medicine admission then transfer to [facility]): He reports that he had about 2 hospitalizations in the past month. One in [facility] (04/24/2022) for acute toxic encephalopathy, drug overdose (cannabinoids, methamphetamine), and alcohol withdrawal w/ delirium tremens which required large amount of benzo. He says he had another hospitalization in [place]. He reports that one of these hospitalizations led to ICU stay and he was told that his kidney were failing, but no detailed records of outside hospital stay are available on admission. 07/21: Restless, argumentative, anxious, irritable, and illogical. He is agreeable to [facility] tx, especially to access psychotherapy, knowing it will likely eventually be court ordered. However, he also stated that he has no intentions of quitting alcohol all together, but only cutting back, b/c of his chronic pain. Additionally, he is unwilling to stay in the hospital beyond his 72h hold, in order tofacilitate a door to door transfer to [facility] tx. He was educated on his risk of relapse and reminded of his recent hospitalizations, related to use / overdosing. Pt was reminded that he himself stated someone could have in relation to the events prior to this admission. He does not see his drinking as a problem, stating, I don't drive. Manager Convention noted that he recently missed a court date for aDUI charge and, last hospitalization here, he was brought here for a legal blood draw after being stopped for erratic driving. When asked about the pill bottles that were scattered around him, when found [employer], he could not give an explanation. Will file a petition for civil commitment. 07/22: Quite tense, irritable, and rude on approach. Said he wants to d/c directly to [facility] he suspects there must be a bench warrant issued for his arrest d/t missing a DUI court date a few weeks back. He slept better, but asked for PRN Benadryl instead of PRN Melatonin. Thought processwas linear. No overt paranoia. Reported +AH last edil. [facility] is supporting petition for commitment. 07/23: He is frustrated w not being able to access an opioid or Voltaren for his chronic pain. He has no insight into risk / benefit considerations. He is resistant to any treatment that takes more effort than popping a pill. He reluctantly agreed to a pain medicine consult. He was noted to be diaphoretic, but has not been scoring high enough on CIWA to warrant PRN BZD. He talked at length about his oldest son's by hanging and about how he has struggled in the aftermath and has failed to adequately support his second son over the years. His second son has attempted suicide numerous timesand is currently in [facility] tx. He added, I must before him. The pt talked about his hinduism bel iefs, about not believing in suicide, but having come to the conclusion that even someone who does not believe in suicide can get to the point of attempting suicide. He denied thoughts of self harm, SI, HI, and VH. He reported +AH and +tactile hallucinations >> hypnagogic-like. Affect was anxious, tense, and irritable. 07/24: No diaphoresis today. Using PRNs for sleep. Denied further AH, VH, or tactile hallucinations.(However, his report of hallucinations varies from person to person.) Agreeable to med trials for various concerns, but tends to want to immediately jump to large doses. Anxious, intense at times, and restless. Thought process is largely linear. Denied SI / HI. He mentioned this hospitalization as the 4th time he's been in the ICU in as many months. 07/25: More elevated, animated, intense, and irritable. Continues restless. Med seeking - more of (to include opioids, BZD, and now stimulants, but also other more benign meds) - and wanting to go straight to high doses. He is a very inconsistent historian w details changing from day to day, person to person. Memory impairment is noted. He noted that he did not trash his kidneys as badly prior to this admission as compared to his other 3 recent admissions. He minimized the significance of his past renal injury and dismissed the warnings he has received by healthcare professionals re the risks to his vital organs. He called them over-dramatic. Denied AH / SI. +Paranoia re demons? Hyper-verbal. 07/26: Continued fixation on medications, feels he is in need of something additional for both pain and sleep -- pt offers diclofenac and Xanax as effective interventions, but understanding when web content writer offered renal concerns with diclofenac and habit-forming tendencies with Xanax. Pt hopeful for Benadryl for sleep which was agreed upon. Discussed Gabapentin additionally as options for both pain, sleep and RLS. 07/27: Less intense, irritable than yesterday and reporting sufficient sleep for the first time in years. Generally fixated on pain, medication options in case things fail down the road during current hospitalization. Apart from this, pt occasionally offers comments about how Xanax and opiate medications would simplify my long med list, but redirectable. 07/28: Largely unchanged, though briefly frustrated with not having Robaxin scheduled. Will do so moving forward per his request. Feels ready for CD referrals, aware that final commitment hearing is not until next week. 07/29: Planning out possible medication changes on a daily basis, frequently asks what next step is if certain medications do not work for him long-term, additionally routes interview back to discussion of pain/diclofenac several times throughout interaction. Very focused on medication regimen schedule. 07/30: Continued fixation on possible medication options moving forward, today mostly surrounding safety profile of medications with alcohol use. Additionally reported voices over the last couple of days, previously withheld from treatment team as he thought this would result in Seroquel being takenaway. 07/31: Unchanged; required. Robaxin last night for sleep, had difficulty sleeping through the night for 1st time in several days. Agreed to keep medications as are for now, revisit sleep augmentation if issues persist. Otherwise, no changes. DIAGNOSES & PLAN Principal Psychiatric / Substance Use Diagnoses: - encephalopathy s/p ingestion: improved - bipolar disorder w psychosis vs SCAD by hx - r/o substance induced psychosis - alcohol use disorder, severe - methamphetamine use disorder, severe - BZD use disorder, severe - alcohol / BZD withdrawal Medical Concerns to be addressed: - USAMA: resolved - ?element of CKD? - mild rhabdomyolysis: improved - chronic back pain: see Medicine consult - HTN: restarted [employer] medications - GERD: restarted PPI - HLD: restarted statin - LUTS: flomax - Patient with moderate malnutrition in the context of social/environmental circumstances during hospital stay and remains with at risk for malnutrition. Patient requiring additional resources due todegree of malnutrition during hospital stay. Dietitian following with the following nutrition therapy plan: 1.) Modify boost TID 2.) Encourage oral intakes Medication Ordered/Consults/Labs/Tests Ordered: 07/18: Delirium precautions ordered. Seroquel ordered 100 mg QHS and 50 mg q4PRN. Zyprexa 5 PO mg vs10 mg IV - TID PRN if needed. UDS ordered. Will order high dosed Thiamine. Will order addiction consult. Gabapentin 300 mg TID ordered for withdrawal symptoms. 07/19: Increase quetiapine to 100mg TID. [employer] dose was 800mg qHS. UDS+ for amphetamines. 07/20: Will give Seroquel 200mg at bedtime this edil then combine doses / change dose to 400mg po qhs. Will titrate to [employer] dose of 800mg po qhs as tolerated / indicated. Hold Lexapro for now. He has not been consistently taking it. Increase Neurontin to 600mg po TID. Offer Zyprexa 10mg po BID PRN. Continue CIWA protocol w PRN Valium and PRN Clonidine. 07/21: Lidocaine patch daily. Medicine consult if [facility] is issued. 07/22: Medicine consult for chronic back pain management. Increase Seroquel to 500mg po qhs. D/c PRNMelatonin and replace w PRN Benadryl. 07/23: Increase Seroquel to 600mg po qhs. Per his request, change Flexeril 10mg from TID PRN to TID.Will avoid Requip for RLS as it could worsen his DC sxs. Instead, will increase Neurontin to 900mg po TID. Spiritual care consult ordered. 07/24: Advance Seroquel to 700mg po qhs. Add Trazodone 50mg po qhs + 50mg po qhs PRN. Changed Benadryl to PRN itching only as this could worsen RLS, if that is truly what he has. Will discuss the possibility of akathisia (vs RLS) tomorrow. 07/25: Increase Seroquel to his [employer] dose of 800mg po qhs. Add a 2nd Lidocaine patch. Maximize daily APAP dose by allowing a daily PRN dose to his TID scheduled APAP. Pain Management consult placed. Trial Cogentin 1mg po BID for possible akathisia. D/c PRN Benadryl as he has Trazodone available. D/c CIWA. 07/26: MONTEZ Burr, may consider non-cardioselective beta messi in place of Toprol (ie. Inderal) for better akathisia coverage if RLS symptoms do not improve with increased Gabapentin. 07/27: Desonide cream BID for dermatitis. 07/28: Scheduled Robaxin 750 mg hs per pt request. 07/29 -- : No change. Milieu Management: Admit to: [facility] Legal: >> [facility] (prelim 07/29) Acuity level: Red (caution - at risk, monitored for safety) Encouraged the patient to participate in unit activities. Level of Observation: No additional monitoring needed RE-CERTIFICATION & RISK ASSESSMENT The patient continues to need, on a daily basis, active inpatient psychiatric treatment for ongoingdiagnostic assessment and treatment of the following symptoms: AH, paranoia, substance withdrawal, and possible SI w possible SA prior to admission. The treatment can reasonably be expected to improve the patient's condition. Estimated length of stay is 14 days. Anticipated disposition: home vs care home vs [facility] tx Risk Assessment: assault: Medium - paranoid Suicide Risk: Low Patient Strengths: willing to take medications Patient was additionally evaluated in person by Dr. Crawley, who agrees with the above documentation and plan. Jaden Wetzel PA-C * Jaden Wetzel PA-C - 07/31/2023 8:46 AM CDT [facility] Psychiatry Progress Note PATIENT NAME: Nicanor Alvarado DATE OF SERVICE: 07/31/2023 ATTENDING PRACTITIONER: Jaden Wetzel PA-C HOSPITAL DAY # 11 CHIEF COMPLAINT subsequent inpatient psychiatric encounter INTERVAL HISTORY Nicanor Alvarado was seen in f/u by web content writer alongside , where he agree to interview in dining room. States he is continuing to sleep well, did not voice concern with Robaxin as in yesterday's interview/to evening staff. Again discussed Benadryl use, possible changes he plans on making outpatient including orthodox of diclofenac. Apart from this, patient did ask line of questions about alcohol use following discharge and safety profile of this alongside current psychiatric medications. Discussed hepatic concerns many medications he is currently prescribed with co-occurring alcohol consumption. Patient able to process this information, though did offer that he hopes his outpatient team wi ll be routinely monitoring liver function so he could theoretically ???know when it is getting bad.?? Relayed importance of abstaining from alcohol use, that often times these lab tests are not performed close enough to ???predict failure as patient proposed. Patient did endorse +AH in the form of encouraging talk on how staff are helping him, wanting the best for him. States he did not disclose this to web content writer yesterday, as he felt it was a positive change and he is used to voices that are condescending/mean to him. Was afraid that if he disclosed this,team would take away his Seroquel which he very much appreciates/feels it is beneficial. REVIEW OF SYSTEMS Constitutional: did not endorse physical health concerns aside from as discussed above + chronic back pain Psychiatric: denied thoughts of self harm, SI, HI, AH, and/or VH; see above Medication side effects: none endorsed CHART REVIEW & MULTIDISCIPLINARY TEAM MEETING Met with the multidisciplinary treatment team and discussed care and treatment planning. RN Report: Subjective: I need my scheduled Robaxin in the morning, too. Objective: The pt was cooperative with assessment question. Compliant with medications. Denies VH/SI/HI. Endorsed minimal auditory hallucination. Visible in day room and watched TV. Behaviorally controlled. Ate 100% of his dinner. 15 minutes safety check ongoing. SW Report: reviewed and discussed Group attendance and participation: 3/ OT PRN medications: reviewed MAR OBJECTIVE Hours of Sleep: Patient Vitals for the past 72 hrs: Sleep Hours 07/31/23 0631 6.3 HOURS 07/30/23 2223 1.3 HOURS 07/30/23 1508 1 HOURS 07/30/23 0622 7.3 HOURS 07/29/23 2308 1.3 HOURS 07/29/23 1436 1 HOURS 07/29/23 0621 7.3 HOURS 07/28/23 2253 0.8 HOURS 07/28/23 1503 0 HOURS LABS: No results found for this or any previous visit (from the past 24 hour(s)). Current Facility-Administered Medications Medication Dose Route Frequency acetaminophen (TYLENOL) tablet 1,000 mg 1,000 mg Oral DAILY PRN acetaminophen (TYLENOL) tablet 1,000 mg 1,000 mg Oral TID amitriptyline (ELAVIL) tablet 50 mg 50 mg Oral At Bedtime amLODIPine (NORVASC) tablet 5 mg 5 mg Oral Daily aspirin chewable tablet 81 mg 81 mg Oral Daily atorvastatin (LIPITOR) tablet 20 mg 20 mg Oral Evening senna (SENOKOT) tablet 2 Tablet 2 Tablet Oral BID PRN And polyethylene glycol (MIRALAX) oral powder 17 g 17 g Oral DAILY PRN And bisacodyl (DULCOLAX) rectal suppository 10 mg 10 mg Rectal DAILY PRN calcium carbonate (TUMS) chewable tablet 1,000 mg 1,000 mg Oral Q4H PRN desonide (DESOWEN) 0.05 % cream Topical BID diclofenac (VOLTAREN) gel 2 g 2 g Topical QID PRN diphenhydrAMINE (BENADRYL) capsule 50 mg 50 mg Oral At Bedtime diphenhydrAMINE (BENADRYL) capsule 50 mg 50 mg Oral DAILY PRN folic acid tablet 1 mg 1 mg Oral Daily gabapentin (NEURONTIN) capsule 1,200 mg 1,200 mg Oral TID lidocaine (ASPERCREAM) 4 % patch 2 Patch 2 Patch Transdermal Daily lidocaine (XYLOCAINE) 5 % ointment Topical TID PRN methocarbamol (ROBAXIN) tablet 750 mg 750 mg Oral TID PRN methocarbamol (ROBAXIN) tablet 750 mg 750 mg Oral At Bedtime metoprolol succinate (TOPROL XL) extended release tablet 25 mg 25 mg Oral Daily nicotine (COMMIT) lozenge 2 mg 2 mg Oral Q1H PRN Or nicotine (NICORETTE) gum 2 mg 2 mg Oral Q1H PRN OLANZapine (ZyPREXA ZYDIS) disintegrating tablet 10 mg 10 mg Oral BID PRN pantoprazole DR (PROTONIX) tablet 40 mg 40 mg Oral Daily at 6 am QUEtiapine (SEROquel) tablet 800 mg 800 mg Oral At Bedtime tamsulosin (FLOMAX) capsule 0.4 mg 0.4 mg Oral Daily after a meal thiamine (VITAMIN B-1) tablet 100 mg 100 mg Oral Daily Food intake: Amount of Diet Consumed (last 3 days) Date/Time Intake (%) 07/30/23 1725 100%;Dinner 07/30/23 1214 100%;Lunch 07/30/23 0840 100%;Breakfast 07/29/23 1700 100%;Dinner 07/29/23 1240 100%;Lunch 07/29/23 0816 100%;Breakfast 07/28/23 1700 100%;Dinner 07/28/23 1200 100%;Lunch 07/28/23 0824 100%;Breakfast ALLERGY No Known Allergies MENTAL STATUS EXAM Filed Vitals: 07/30/23 0830 07/30/23 1132 07/30/23 1600 07/31/23 0800 BP: (!) 149/93 (!) 147/91 (!) 149/86 (!) 160/96 Pulse: 86 90 93 Resp: Temp: 97.5 ??F (36.4 ??C) 97.3 ??F (36.3 ??C) (!) 96.3 ??F (35.7 ??C) TempSrc: Oral Skin Skin SpO2: 98% 98% 99% Weight: Height: Appearance: alert, intermittent eye contact, wearing scrubs, adequate grooming, appears older than stated age Behavior: engaged, needy, med seeking, more elevated and animated Motor: restless Gait and Station: unimpaired Speech: normal in rate, normal to loud in volume, hyper-verbal / over-inclusive Language: intact Thought process: largely linear Thought content: denied thoughts of self harm, SI, HI, +AH (but pleasant/encouraging), no VH; +paranoia re demons ? Associations: grossly intact Mood: I did have voices, but they were good Affect: anxious, less intense/irritable Orientation: grossly oriented Attention: intact Memory: impaired Insight: poor Judgment: poor CONSULTATION [facility], 07/24/23: Assessment / Recommendations Follow up on labs show creat 0.96, returned to normal range and resolved USAMA. K is 5.1 but sample hemolyzed. med consulted on 07/23/23 because of chronic back/neck/shoulder pain. To me, pt reports chronic low back, B/L hip, and shoulder pain. Frustrated that doctors will not prescribe him opioids, and that they recommend against diclofenac due to kidney issues. 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 In several studies, NSAIDshave shown to further increase the risk for thrombotic CV events as well as bleeding events. He is on ASA and addition of NSAID will increase risk of GI bleeding, as well. No current red flag symptoms for neck/back/shoulder pain, actually appears more controlled than previously per patient's report/chart review. Plan: - gabapentin has been helpful - continue 600 mg TID - lidocaine patch lower back has been helpful - continue daily; also offer additional lidocaine patch for neck or shoulder pain if pt desires - tylenol 650 mg prn changed to 1000 mg TID scheduled - diclofenac gel ordered instead to use topically as less systemic absorption - Given patient's chronic difficult to control pain and his h/o of self medicating with meds he buys off internet, I do think it is important to find a pain regimen that will control pt's chronic pain in a meaningful way so that he is less likely to use the internet to buy pills that are not prescribed to him - given it is the weekend, pain team is not available, but would consider primary team consult them and/or send OP referral to pain clinic for patient at hospital discharge. Pain team was consulted during a previous admission in May 2023, but he was not interested in any options other than opioids at that time. He did not ask me about opioids during our visit, so I believe he may nowbe open to more options, perhaps even intraarticular injections for shoulder/hip/back pain. med will sign off. Please reach out with any questions/concerns. Orin Nelson PA-C PAIN MANAGEMENT, 07/25: TREATMENT RECOMMENDATIONS/PLAN: Increase gabapentin to 1200mg TID Elavil 50mg QHS for sleep and nerve pain Change flexeril to robaxin 750 mg QID PRN NSAIDS could be considered in the future. Overall high risk patient with severe substance use disorder Will add non-opioid adjuvants. I did talk to him about suboxone; since he doesn't have opioid use disorder, this would not be my first preference. However, I would avoid pure opioid agonists at this time. ASSESSMENT AND RECOMMENDATIONS DISCUSSED WITH: Kristin Rutledge PA-C Thank you for consulting the Inpatient Pain Management Service. Please contact me with any questions or concerns. Aaron Galicia M.D. CAM Alvarado is a 57 y.o. male who has been admitted to station [facility] for AH, paranoia, substance withdrawal, and possible [...] his room over the weekend. Admitted to [facility]: 07/20: Restless on exam. Reported +AH and +paranoia (under investigation - which he is starting toquestion as the truth). Less disorganized as compared to when on Medicine. He said he was not really sure about the events [employer]. He drinks alcohol heavily, nearly 3L of [employer]'s rum per week. He has been prescribed Lexapro, but he is not consistent w taking it. Sometimes I need more, referring to self medicating. He used methamphetamine [employer]. He said he has +AH at his baseline, but while using methamphetamine, the +AH escalated and, it got bad. Someone could have . It all seemed so real. He said he began to think that he would be better off if he just used all of the methamph etamine, so he used some IV. His paranoia escalated and he began to feel like someone was going to come through his door, so I ate the rest of the bag b/c I thought I would need the rage and energy to fight them off. Guarded at times. Hesitantly, he denied having SI and he denied the [employer] event asa SA. 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 When initially in the ED, he reported +SI (also while on Medicine) and, when questioned about ingestion, he replied w not enough. Per chart review from the 05/2023 Medicine admission (admitted for erratic driving / legal blood draw, while in the ED he had a syncopal episode and required Medicine admission then transfer to [facility]): He reports that he had about 2 hospitalizations in the past month. One in [facility] (04/24/2022) for acute toxic encephalopathy, drug overdose (cannabinoids, methamphetamine), and alcohol withdrawal w/ delirium tremens which required large amount of benzo. He says he had another hospitalization in [place]. He reports that one of these hospitalizations led to ICU stay and he was told that his kidney were failing, but no detailed records of outside hospital stay are available on admission. 07/21: Restless, argumentative, anxious, irritable, and illogical. He is agreeable to [facility] tx, especially to access psychotherapy, knowing it will likely eventually be court ordered. However, he also stated that he has no intentions of quitting alcohol all together, but only cutting back, b/c of his chronic pain. Additionally, he is unwilling to stay in the hospital beyond his 72h hold, in order tofacilitate a door to door transfer to [facility] tx. He was educated on his risk of relapse and reminded of his recent hospitalizations, related to use / overdosing. Pt was reminded that he himself stated someone could have in relation to the events prior to this admission. He does not see his drinking as a problem, stating, I don't drive. Manager Convention noted that he recently missed a court date for aDUI charge and, last hospitalization here, he was brought here for a legal blood draw after being stopped for erratic driving. When asked about the pill bottles that were scattered around him, when found [employer], he could not give an explanation. Will file a petition for civil commitment. 07/22: Quite tense, irritable, and rude on approach. Said he wants to d/c directly to [facility] he suspects there must be a bench warrant issued for his arrest d/t missing a DUI court date a few weeks back. He slept better, but asked for PRN Benadryl instead of PRN Melatonin. Thought processwas linear. No overt paranoia. Reported +AH last edil. [facility] is supporting petition for commitment. 07/23: He is frustrated w not being able to access an opioid or Voltaren for his chronic pain. He has no insight into risk / benefit considerations. He is resistant to any treatment that takes more effort than popping a pill. He reluctantly agreed to a pain medicine consult. He was noted to be diaphoretic, but has not been scoring high enough on CIWA to warrant PRN BZD. He talked at length about his oldest son's by hanging and about how he has struggled in the aftermath and has failed to adequately support his second son over the years. His second son has attempted suicide numerous timesand is currently in [facility] tx. He added, I must before him. The pt talked about his hinduism bel iefs, about not believing in suicide, but having come to the conclusion that even someone who does not believe in suicide can get to the point of attempting suicide. He denied thoughts of self harm, SI, HI, and VH. He reported +AH and +tactile hallucinations >> hypnagogic-like. Affect was anxious, tense, and irritable. 07/24: No diaphoresis today. Using PRNs for sleep. Denied further AH, VH, or tactile hallucinations.(However, his report of hallucinations varies from person to person.) Agreeable to med trials for various concerns, but tends to want to immediately jump to large doses. Anxious, intense at times, and restless. Thought process is largely linear. Denied SI / HI. He mentioned this hospitalization as the 4th time he's been in the ICU in as many months. 07/25: More elevated, animated, intense, and irritable. Continues restless. Med seeking - more of (to include opioids, BZD, and now stimulants, but also other more benign meds) - and wanting to go straight to high doses. He is a very inconsistent historian w details changing from day to day, person to person. Memory impairment is noted. He noted that he did not trash his kidneys as badly prior to this admission as compared to his other 3 recent admissions. He minimized the significance of his past renal injury and dismissed the warnings he has received by healthcare professionals re the risks to his vital organs. He called them over-dramatic. Denied AH / SI. +Paranoia re demons? Hyper-verbal. 07/26: Continued fixation on medications, feels he is in need of something additional for both pain and sleep -- pt offers diclofenac and Xanax as effective interventions, but understanding when web content writer offered renal concerns with diclofenac and habit-forming tendencies with Xanax. Pt hopeful for Benadryl for sleep which was agreed upon. Discussed Gabapentin additionally as options for both pain, sleep and RLS. 07/27: Less intense, irritable than yesterday and reporting sufficient sleep for the first time in years. Generally fixated on pain, medication options in case things fail down the road during current hospitalization. Apart from this, pt occasionally offers comments about how Xanax and opiate medications would simplify my long med list, but redirectable. 07/28: Largely unchanged, though briefly frustrated with not having Robaxin scheduled. Will do so moving forward per his request. Feels ready for CD referrals, aware that final commitment hearing is not until next week. 07/29: Planning out possible medication changes on a daily basis, frequently asks what next step is if certain medications do not work for him long-term, additionally routes interview back to discussion of pain/diclofenac several times throughout interaction. Very focused on medication regimen schedule. 07/30: Continued fixation on possible medication options moving forward, today mostly surrounding safety profile of medications with alcohol use. Additionally reported voices over the last couple of days, previously withheld from treatment team as he thought this would result in Seroquel being takenaway. DIAGNOSES & PLAN Principal Psychiatric / Substance Use Diagnoses: - encephalopathy s/p ingestion: improved - bipolar disorder w psychosis vs SCAD by hx - r/o substance induced psychosis - alcohol use disorder, severe - methamphetamine use disorder, severe - BZD use disorder, severe - alcohol / BZD withdrawal Medical Concerns to be addressed: - USAMA: resolved - ?element of CKD? - mild rhabdomyolysis: improved - chronic back pain: see Medicine consult - HTN: restarted [employer] medications - GERD: restarted PPI - HLD: restarted statin - LUTS: flomax - Patient with moderate malnutrition in the context of social/environmental circumstances during hospital stay and remains with at risk for malnutrition. Patient requiring additional resources due todegree of malnutrition during hospital stay. Dietitian following with the following nutrition therapy plan: 1.) Modify boost TID 2.) Encourage oral intakes Medication Ordered/Consults/Labs/Tests Ordered: 07/18: Delirium precautions ordered. Seroquel ordered 100 mg QHS and 50 mg q4PRN. Zyprexa 5 PO mg vs10 mg IV - TID PRN if needed. UDS ordered. Will order high dosed Thiamine. Will order addiction consult. Gabapentin 300 mg TID ordered for withdrawal symptoms. 07/19: Increase quetiapine to 100mg TID. [employer] dose was 800mg qHS. UDS+ for amphetamines. 07/20: Will give Seroquel 200mg at bedtime this edil then combine doses / change dose to 400mg po qhs. Will titrate to [employer] dose of 800mg po qhs as tolerated / indicated. Hold Lexapro for now. He has not been consistently taking it. Increase Neurontin to 600mg po TID. Offer Zyprexa 10mg po BID PRN. Continue CIWA protocol w PRN Valium and PRN Clonidine. 07/21: Lidocaine patch daily. Medicine consult if [facility] is issued. 07/22: Medicine consult for chronic back pain management. Increase Seroquel to 500mg po qhs. D/c PRNMelatonin and replace w PRN Benadryl. 07/23: Increase Seroquel to 600mg po qhs. Per his request, change Flexeril 10mg from TID PRN to TID.Will avoid Requip for RLS as it could worsen his DC sxs. Instead, will increase Neurontin to 900mg po TID. Spiritual care consult ordered. 07/24: Advance Seroquel to 700mg po qhs. Add Trazodone 50mg po qhs + 50mg po qhs PRN. Changed Benadryl to PRN itching only as this could worsen RLS, if that is truly what he has. Will discuss the possibility of akathisia (vs RLS) tomorrow. 07/25: Increase Seroquel to his [employer] dose of 800mg po qhs. Add a 2nd Lidocaine patch. Maximize daily APAP dose by allowing a daily PRN dose to his TID scheduled APAP. Pain Management consult placed. Trial Cogentin 1mg po BID for possible akathisia. D/c PRN Benadryl as he has Trazodone available. D/c CIWA. 07/26: DC Aminah, may consider non-cardioselective beta messi in place of Toprol (ie. Inderal) for better akathisia coverage if RLS symptoms do not improve with increased Gabapentin. 07/27: Desonide cream BID for dermatitis. 07/28: Scheduled Robaxin 750 mg hs per pt request. 07/29 -- : No change. Milieu Management: Admit to: [facility]4 Legal: >> [facility] (prelim 07/29) Acuity level: Red (caution - at risk, monitored for safety) Encouraged the patient to participate in unit activities. Level of Observation: No additional monitoring needed RE-CERTIFICATION & RISK ASSESSMENT The patient continues to need, on a daily basis, active inpatient psychiatric treatment for ongoingdiagnostic assessment and treatment of the following symptoms: AH, paranoia, substance withdrawal, and possible SI w possible SA prior to admission. The treatment can reasonably be expected to improve the patient's condition. Estimated length of stay is 14 days. Anticipated disposition: home vs care home vs [facility] tx Risk Assessment: assault: Medium - paranoid Suicide Risk: Low Patient Strengths: willing to take medications Patient was additionally evaluated in person by Dr. Crawley, who agrees with the above documentation and plan. Jaden Wetzel PA-C * Jaden Wetzel PA-C - 07/30/2023 8:37 AM CDT [facility] Psychiatry Progress Note PATIENT NAME: Nicanor Alvarado DATE OF SERVICE: 07/30/2023 ATTENDING PRACTITIONER: Jaden Wetzel PA-C HOSPITAL DAY # 10 CHIEF COMPLAINT subsequent inpatient psychiatric encounter INTERVAL HISTORY Nicanor Alvarado was seen in f/u by web content writer, where he is seen sitting in dining area and agreed to interview. States he is not too hot, follows this by noting a frustrating phone call with his associate attorney in which he needed to repeat himself numerous times. Apart from this, states medication to be working for him and sleep was improved once again last night after having Robaxin scheduled. Discussed potential concerns for pain down the road, including expected difficulty administering pain patches on his own after discharge. Again discussed interest in having diclofenac scheduled outpatient once again, says he will take Ibuprofen regardless if this is not prescribed. Briefly routed conversation back to current MH concerns; pt states no voices since the beginning ofthe week and feels Seroquel to be a good fit for him. Manager Convention offered the need to monitor EKG at increased dose which he agrees to. Asked if web content writer has ever seen doses above 800 mg. Flagged web content writer down later in the day to request Robaxin be scheduled qid rather than only having scheduled hs dose. REVIEW OF SYSTEMS Constitutional: did not endorse physical health concerns aside from as discussed above + chronic back pain Psychiatric: denied thoughts of self harm, SI, HI, AH, and/or VH; see above Medication side effects: none endorsed CHART REVIEW & MULTIDISCIPLINARY TEAM MEETING Met with the multidisciplinary treatment team and discussed care and treatment planning. RN Report: Subjective: I am getting more sleepy than I used to be. Glad that they do put my Robaxin on schedule now. Please bring in my Robaxin when it is do. This place is fantastic, I am getting better day by day. There is still little auditory hallucination, but better than it used to be Objective: Met the pt in day room while he was socializing with peer. The pt was calm and cooperative upon conversation. Compliant with medications. Denies VH/SI/HI. Endorsed minimal auditory hallucination. Visible on the unit and socialized with peers. Pt mentioned about the importance of getting robaxin on time to keep his pain under tolerable level. Furthermore, he stated that he is getting more sleep nowadays. Behaviorally controlled. Ate 100% of his dinner. 15 minutes safety check ongoing. SW Report: reviewed and discussed Group attendance and participation: 2/3 OT PRN medications: reviewed MAR OBJECTIVE Hours of Sleep: Patient Vitals for the past 72 hrs: Sleep Hours 07/30/23 0622 7.3 HOURS 07/29/23 2308 1.3 HOURS 07/29/23 1436 1 HOURS 07/29/23 0621 7.3 HOURS 07/28/23 2253 0.8 HOURS 07/28/23 1503 0 HOURS 07/28/23 0641 7.8 HOURS 07/27/23 2243 1.8 HOURS 07/27/23 1458 1 HOURS LABS: No results found for this or any previous visit (from the past 24 hour(s)). Current Facility-Administered Medications Medication Dose Route Frequency acetaminophen (TYLENOL) tablet 1,000 mg 1,000 mg Oral DAILY PRN acetaminophen (TYLENOL) tablet 1,000 mg 1,000 mg Oral TID amitriptyline (ELAVIL) tablet 50 mg 50 mg Oral At Bedtime amLODIPine (NORVASC) tablet 5 mg 5 mg Oral Daily aspirin chewable tablet 81 mg 81 mg Oral Daily atorvastatin (LIPITOR) tablet 20 mg 20 mg Oral Evening senna (SENOKOT) tablet 2 Tablet 2 Tablet Oral BID PRN And polyethylene glycol (MIRALAX) oral powder 17 g 17 g Oral DAILY PRN And bisacodyl (DULCOLAX) rectal suppository 10 mg 10 mg Rectal DAILY PRN calcium carbonate (TUMS) chewable tablet 1,000 mg 1,000 mg Oral Q4H PRN desonide (DESOWEN) 0.05 % cream Topical BID diclofenac (VOLTAREN) gel 2 g 2 g Topical QID PRN diphenhydrAMINE (BENADRYL) capsule 50 mg 50 mg Oral At Bedtime diphenhydrAMINE (BENADRYL) capsule 50 mg 50 mg Oral DAILY PRN folic acid tablet 1 mg 1 mg Oral Daily gabapentin (NEURONTIN) capsule 1,200 mg 1,200 mg Oral TID hydrocortisone 1 % cream Topical BID PRN lidocaine (ASPERCREAM) 4 % patch 2 Patch 2 Patch Transdermal Daily lidocaine (XYLOCAINE) 5 % ointment Topical TID PRN methocarbamol (ROBAXIN) tablet 750 mg 750 mg Oral TID PRN methocarbamol (ROBAXIN) tablet 750 mg 750 mg Oral At Bedtime metoprolol succinate (TOPROL XL) extended release tablet 25 mg 25 mg Oral Daily nicotine (COMMIT) lozenge 2 mg 2 mg Oral Q1H PRN Or nicotine (NICORETTE) gum 2 mg 2 mg Oral Q1H PRN OLANZapine (ZyPREXA ZYDIS) disintegrating tablet 10 mg 10 mg Oral BID PRN pantoprazole DR (PROTONIX) tablet 40 mg 40 mg Oral Daily at 6 am QUEtiapine (SEROquel) tablet 800 mg 800 mg Oral At Bedtime tamsulosin (FLOMAX) capsule 0.4 mg 0.4 mg Oral Daily after a meal thiamine (VITAMIN B-1) tablet 100 mg 100 mg Oral Daily valACYclovir (VALTREX) tablet 1,000 mg 1,000 mg Oral Daily Food intake: Amount of Diet Consumed (last 3 days) Date/Time Intake (%) 07/29/23 1700 100%;Dinner 07/29/23 1240 100%;Lunch 07/29/23 0816 100%;Breakfast 07/28/23 1700 100%;Dinner 07/28/23 1200 100%;Lunch 07/28/23 0824 100%;Breakfast 07/27/23 1805 100%;Dinner 07/27/23 1100 100%;Lunch 07/27/23 0840 100%;Breakfast ALLERGY No Known Allergies MENTAL STATUS EXAM Filed Vitals: 07/28/23 0824 07/29/23 0847 07/29/23 1600 07/30/23 0830 BP: (!) 140/93 (!) 159/88 (!) 152/92 Pulse: 85 88 90 Resp: 16 17 16 Temp: 98.2 ??F (36.8 ??C) 98.1 ??F (36.7 ??C) 98.6 ??F (37 ??C) 97.5 ??F (36.4 ??C) TempSrc: Skin Skin Temporal Artery Oral SpO2: 100% 100% 99% Weight: Height: Appearance: alert, intermittent eye contact, wearing scrubs, adequate grooming, appears older than stated age Behavior: engaged, needy, med seeking, more elevated and animated Motor: restless Gait and Station: unimpaired Speech: normal in rate, normal to loud in volume, hyper-verbal / over-inclusive Language: intact Thought process: largely linear Thought content: denied thoughts of self harm, SI, HI, AH, and/or VH; +paranoia re demons ? Associations: grossly intact Mood: okay Affect: anxious, less intense/irritable Orientation: grossly oriented Attention: intact Memory: impaired Insight: poor Judgment: poor CONSULTATION [facility], 07/24/23: Assessment / Recommendations Follow up on labs show creat 0.96, returned to normal range and resolved USAMA. K is 5.1 but sample hemolyzed. med consulted on 07/23/23 because of chronic back/neck/shoulder pain. To me, pt reports chronic low back, B/L hip, and shoulder pain. Frustrated that doctors will not prescribe him opioids, and that they recommend against diclofenac due to kidney issues. 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 Although from a kidney perspective it may be safe to use NSAIDs, danny for an acute/short term need,I still do not believe this is the best nursing home medication for this patient for pain control moreso because of his cardiac risks with longstanding HLD, HTN, age, gender. In several studies, NSAIDshave shown to further increase the risk for thrombotic CV events as well as bleeding events. He is on ASA and addition of NSAID will increase risk of GI bleeding, as well. No current red flag symptoms for neck/back/shoulder pain, actually appears more controlled than previously per patient's report/chart review. Plan: - gabapentin has been helpful - continue 600 mg TID - lidocaine patch lower back has been helpful - continue daily; also offer additional lidocaine patch for neck or shoulder pain if pt desires - tylenol 650 mg prn changed to 1000 mg TID scheduled - diclofenac gel ordered instead to use topically as less systemic absorption - Given patient's chronic difficult to control pain and his h/o of self medicating with meds he buys off internet, I do think it is important to find a pain regimen that will control pt's chronic pain in a meaningful way so that he is less likely to use the internet to buy pills that are not prescribed to him - given it is the weekend, pain team is not available, but would consider primary team consult them and/or send OP referral to pain clinic for patient at hospital discharge. Pain team was consulted during a previous admission in May 2023, but he was not interested in any options other than opioids at that time. He did not ask me about opioids during our visit, so I believe he may nowbe open to more options, perhaps even intraarticular injections for shoulder/hip/back pain. med will sign off. Please reach out with any questions/concerns. Orin Nelson PA-C PAIN MANAGEMENT, 07/25: TREATMENT RECOMMENDATIONS/PLAN: Increase gabapentin to 1200mg TID Elavil 50mg QHS for sleep and nerve pain Change flexeril to robaxin 750 mg QID PRN NSAIDS could be considered in the future. Overall high risk patient with severe substance use disorder Will add non-opioid adjuvants. I did talk to him about suboxone; since he doesn't have opioid use disorder, this would not be my first preference. However, I would avoid pure opioid agonists at this time. ASSESSMENT AND RECOMMENDATIONS DISCUSSED WITH: Kristin Rutledge PA-C Thank you for consulting the Inpatient Pain Management Service. Please contact me with any questions or concerns. Aaron Galicia M.D. CAM Alvarado is a 57 y.o. male who [...] his room over the weekend. Admitted to [facility]: 07/20: Restless on exam. Reported +AH and +paranoia (under investigation - which he is starting toquestion as the truth). Less disorganized as compared to when on Medicine. He said he was not really sure about the events [employer]. He drinks alcohol heavily, nearly 3L of [employer] rum per week. He has been prescribed Lexapro, but he is not consistent w taking it. Sometimes I need more, referring to self medicating. He used methamphetamine [employer]. He said he has +AH at his baseline, but while using methamphetamine, the +AH escalated and, it got bad. Someone could have . It all seemed so real. He said he began to think that he would be better off if he just used all of the methamph etamine, so he used some IV. His paranoia escalated and he began to feel like someone was going to come through his door, so I ate the rest of the bag b/c I thought I would need the rage and energy to fight them off. Guarded at times. Hesitantly, he denied having SI and he denied the [employer] event asa SA. 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 When initially in the ED, he reported +SI (also while on Medicine) and, when questioned about ingestion, he replied w not enough. Per chart review from the 05/2023 Medicine admission (admitted for erratic driving / legal blood draw, while in the ED he had a syncopal episode and required Medicine admission then transfer to [facility]): He reports that he had about 2 hospitalizations in the past month. One in [facility] (04/24/2022) for acute toxic encephalopathy, drug overdose (cannabinoids, methamphetamine), and alcohol withdrawal w/ delirium tremens which required large amount of benzo. He says he had another hospitalization in [place]. He reports that one of these hospitalizations led to ICU stay and he was told that his kidney were failing, but no detailed records of outside hospital stay are available on admission. 07/21: Restless, argumentative, anxious, irritable, and illogical. He is agreeable to [facility] tx, especially to access psychotherapy, knowing it will likely eventually be court ordered. However, he also stated that he has no intentions of quitting alcohol all together, but only cutting back, b/c of his chronic pain. Additionally, he is unwilling to stay in the hospital beyond his 72h hold, in order tofacilitate a door to door transfer to [facility] tx. He was educated on his risk of relapse and reminded of his recent hospitalizations, related to use / overdosing. Pt was reminded that he himself stated someone could have in relation to the events prior to this admission. He does not see his drinking as a problem, stating, I don't drive. Manager Convention noted that he recently missed a court date for aDUI charge and, last hospitalization here, he was brought here for a legal blood draw after being stopped for erratic driving. When asked about the pill bottles that were scattered around him, when found [employer], he could not give an explanation. Will file a petition for civil commitment. 07/22: Quite tense, irritable, and rude on approach. Said he wants to d/c directly to [facility] he suspects there must be a bench warrant issued for his arrest d/t missing a DUI court date a few weeks back. He slept better, but asked for PRN Benadryl instead of PRN Melatonin. Thought processwas linear. No overt paranoia. Reported +AH last edil. [facility] is supporting petition for commitment. 07/23: He is frustrated w not being able to access an opioid or Voltaren for his chronic pain. He has no insight into risk / benefit considerations. He is resistant to any treatment that takes more effort than popping a pill. He reluctantly agreed to a pain medicine consult. He was noted to be diaphoretic, but has not been scoring high enough on CIWA to warrant PRN BZD. He talked at length about his oldest son's by hanging and about how he has struggled in the aftermath and has failed to adequately support his second son over the years. His second son has attempted suicide numerous timesand is currently in [facility] tx. He added, I must before him. The pt talked about his hinduism bel iefs, about not believing in suicide, but having come to the conclusion that even someone who does not believe in suicide can get to the point of attempting suicide. He denied thoughts of self harm, SI, HI, and VH. He reported +AH and +tactile hallucinations >> hypnagogic-like. Affect was anxious, tense, and irritable. 07/24: No diaphoresis today. Using PRNs for sleep. Denied further AH, VH, or tactile hallucinations.(However, his report of hallucinations varies from person to person.) Agreeable to med trials for various concerns, but tends to want to immediately jump to large doses. Anxious, intense at times, and restless. Thought process is largely linear. Denied SI / HI. He mentioned this hospitalization as the 4th time he's been in the ICU in as many months. 07/25: More elevated, animated, intense, and irritable. Continues restless. Med seeking - more of (to include opioids, BZD, and now stimulants, but also other more benign meds) - and wanting to go straight to high doses. He is a very inconsistent historian w details changing from day to day, person to person. Memory impairment is noted. He noted that he did not trash his kidneys as badly prior to this admission as compared to his other 3 recent admissions. He minimized the significance of his past renal injury and dismissed the warnings he has received by healthcare professionals re the risks to his vital organs. He called them over-dramatic. Denied AH / SI. +Paranoia re demons? Hyper-verbal. 07/26: Continued fixation on medications, feels he is in need of something additional for both pain and sleep -- pt offers diclofenac and Xanax as effective interventions, but understanding when web content writer offered renal concerns with diclofenac and habit-forming tendencies with Xanax. Pt hopeful for Benadryl for sleep which was agreed upon. Discussed Gabapentin additionally as options for both pain, sleep and RLS. 07/27: Less intense, irritable than yesterday and reporting sufficient sleep for the first time in years. Generally fixated on pain, medication options in case things fail down the road during current hospitalization. Apart from this, pt occasionally offers comments about how Xanax and opiate medications would simplify my long med list, but redirectable. 07/28: Largely unchanged, though briefly frustrated with not having Robaxin scheduled. Will do so moving forward per his request. Feels ready for CD referrals, aware that final commitment hearing is not until next week. 07/29: Planning out possible medication changes on a daily basis, frequently asks what next step is if certain medications do not work for him long-term, additionally routes interview back to discussion of pain/diclofenac several times throughout interaction. Very focused on medication regimen schedule. DIAGNOSES & PLAN Principal Psychiatric / Substance Use Diagnoses: - encephalopathy s/p ingestion: improved - bipolar disorder w psychosis vs SCAD by hx - r/o substance induced psychosis - alcohol use disorder, severe - methamphetamine use disorder, severe - BZD use disorder, severe - alcohol / BZD withdrawal Medical Concerns to be addressed: - USAMA: resolved - ?element of CKD? - mild rhabdomyolysis: improved - chronic back pain: see Medicine consult - HTN: restarted [employer] medications - GERD: restarted PPI - HLD: restarted statin - LUTS: flomax - Patient with moderate malnutrition in the context of social/environmental circumstances during hospital stay and remains with at risk for malnutrition. Patient requiring additional resources due todegree of malnutrition during hospital stay. Dietitian following with the following nutrition therapy plan: 1.) Modify boost TID 2.) Encourage oral intakes Medication Ordered/Consults/Labs/Tests Ordered: 07/18: Delirium precautions ordered. Seroquel ordered 100 mg QHS and 50 mg q4PRN. Zyprexa 5 PO mg vs10 mg IV - TID PRN if needed. UDS ordered. Will order high dosed Thiamine. Will order addiction consult. Gabapentin 300 mg TID ordered for withdrawal symptoms. 07/19: Increase quetiapine to 100mg TID. [employer] dose was 800mg qHS. UDS+ for amphetamines. 07/20: Will give Seroquel 200mg at bedtime this edil then combine doses / change dose to 400mg po qhs. Will titrate to [employer] dose of 800mg po qhs as tolerated / indicated. Hold Lexapro for now. He has not been consistently taking it. Increase Neurontin to 600mg po TID. Offer Zyprexa 10mg po BID PRN. Continue CIWA protocol w PRN Valium and PRN Clonidine. 07/21: Lidocaine patch daily. Medicine consult if PCH is issued. 07/22: Medicine consult for chronic back pain management. Increase Seroquel to 500mg po qhs. D/c PRNMelatonin and replace w PRN Benadryl. 07/23: Increase Seroquel to 600mg po qhs. Per his request, change Flexeril 10mg from TID PRN to TID.Will avoid Requip for RLS as it could worsen his DC sxs. Instead, will increase Neurontin to 900mg po TID. Spiritual care consult ordered. 07/24: Advance Seroquel to 700mg po qhs. Add Trazodone 50mg po qhs + 50mg po qhs PRN. Changed Benadryl to PRN itching only as this could worsen RLS, if that is truly what he has. Will discuss the possibility of akathisia (vs RLS) tomorrow. 07/25: Increase Seroquel to his [employer] dose of 800mg po qhs. Add a 2nd Lidocaine patch. Maximize daily APAP dose by allowing a daily PRN dose to his TID scheduled APAP. Pain Management consult placed. Trial Cogentin 1mg po BID for possible akathisia. D/c PRN Benadryl as he has Trazodone available. D/c CIWA. 07/26: DC Aminah, may consider non-cardioselective beta messi in place of Toprol (ie. Inderal) for better akathisia coverage if RLS symptoms do not improve with increased Gabapentin. 07/27: Desonide cream BID for dermatitis. 07/28: Scheduled Robaxin 750 mg hs per pt request. 07/29: No change. Milieu Management: Admit to: [facility]4 Legal: >> [facility] (prelim 07/29) Acuity level: Red (caution - at risk, monitored for safety) Encouraged the patient to participate in unit activities. Level of Observation: No additional monitoring needed RE-CERTIFICATION & RISK ASSESSMENT The patient continues to need, on a daily basis, active inpatient psychiatric treatment for ongoingdiagnostic assessment and treatment of the following symptoms: AH, paranoia, substance withdrawal, and possible SI w possible SA prior to admission. The treatment can reasonably be expected to improve the patient's condition. Estimated length of stay is 14 days. Anticipated disposition: home vs care home vs [facility] tx Risk Assessment: assault: Medium - paranoid Suicide Risk: Low Patient Strengths: willing to take medications Patient was additionally evaluated in person by Dr. Crawley, who agrees with the above documentation and plan. Jaden Wetzel PA-C * Lito Martin RN - 07/30/2023 6:[address] [facility] Plan of Care Note Assessment: Sleep Plan: Promote adequate sleep Subjective: n/a Objective: Pt appeared to be sleeping throughout the night. No acute concerns noted/reported. Plan of care on-going --- End of Report --- * Jaden Wetzel PA-C - 07/29/2023 8:33 AM CDT [facility] Psychiatry Progress Note PATIENT NAME: Nicanor Alvarado DATE OF SERVICE: 07/29/2023 ATTENDING PRACTITIONER: Jaden Wetzel PA-C HOSPITAL DAY # 9 CHIEF COMPLAINT subsequent inpatient psychiatric encounter INTERVAL HISTORY Nicanor Alvarado was seen in f/u by web content writer and MD for f/u, where he was seen sitting in common area the unit, engaged peer. Agreed to interview, where the team moved to dining area. States last night was somewhat surrounding sleep, citing issues getting his Robaxin. Would like this scheduled rather than p.r.n. moving forward, agreed to schedule HS dose. Apart from this, patient discussed severalplans he has moving forward including going to treatment after court processes over. Wondering if the team can start working on referrals during his court process. Manager Convention agreed he looks well at thistime, could consider referrals. Patient discussed traumatic events from several years ago, including the of his son via suicide and repeated attempts from multiple other family members. Discussed guilty has with another son, did not get him involved in therapy/counseling following this which he regrets. Patient otherwise denies concerns on the unit, feels other medications are working well for him and no other questions for the team at this time. REVIEW OF SYSTEMS Constitutional: did not endorse physical health concerns aside from as discussed above + chronic back pain Psychiatric: denied thoughts of self harm, SI, HI, AH, and/or VH; see above Medication side effects: none endorsed CHART REVIEW & MULTIDISCIPLINARY TEAM MEETING Met with the multidisciplinary treatment team and discussed care and treatment planning. RN Report: Subjective: I need to stay away from meth, but for alcohol, I don't have a problem with it, I haveit under control. Objective: Denies any pain, SI, and VH. [facility] Pt is unkempt, intense, animated, loud, tearful, sad, depressed, angry. Pt spoke for an hour, very difficult to reorient. States Amytriptilin and Benadryl were effective for sleep and he was very excited that if this works, I won't have to spend $700 on Xanax. Pt reported that AH are pushing his buttons to make him hurt himself. Pt says he would never commit suicide because of suicide family history. Pt was very focused being persecuted by God, the bible and Hell, and was concerned about the consequences of his meth use on hisfamily, worried his second son will commit suicide because of his actions. Overall, pt seems motivated to go to treatment and establish care with a psychiatrist to address mental health issues. Poor insight and judgment. Reported that he might want to reconsider his ETOH use because of how bad I got the DT this time, whenever I was alone, I was scratching my whole body like I was attacked by lice, pt says he might have mentioned it to staff. Provided education about importance to report DT.Pt appeared calmer after diner, sitting in Dayroom, watching TV and socializing with peers. SW Report: reviewed and discussed Group attendance and participation: 05/08 OT PRN medications: reviewed MAR OBJECTIVE Hours of Sleep: Patient Vitals for the past 72 hrs: Sleep Hours 07/29/23 0621 7.3 HOURS 07/28/23 2253 0.8 HOURS 07/28/23 1503 0 HOURS 07/28/23 0641 7.8 HOURS 07/27/23 2243 1.8 HOURS 07/27/23 1458 1 HOURS 07/27/23 0643 7.8 HOURS 07/26/23 2028 0.5 HOURS 07/26/23 1501 0 HOURS LABS: No results found for this or any previous visit (from the past 24 hour(s)). Current Facility-Administered Medications Medication Dose Route Frequency acetaminophen (TYLENOL) tablet 1,000 mg 1,000 mg Oral DAILY PRN acetaminophen (TYLENOL) tablet 1,000 mg 1,000 mg Oral TID amitriptyline (ELAVIL) tablet 50 mg 50 mg Oral At Bedtime amLODIPine (NORVASC) tablet 5 mg 5 mg Oral Daily aspirin chewable tablet 81 mg 81 mg Oral Daily atorvastatin (LIPITOR) tablet 20 mg 20 mg Oral Evening senna (SENOKOT) tablet 2 Tablet 2 Tablet Oral BID PRN And polyethylene glycol (MIRALAX) oral powder 17 g 17 g Oral DAILY PRN And bisacodyl (DULCOLAX) rectal suppository 10 mg 10 mg Rectal DAILY PRN calcium carbonate (TUMS) chewable tablet 1,000 mg 1,000 mg Oral Q4H PRN desonide (DESOWEN) 0.05 % cream Topical BID diclofenac (VOLTAREN) gel 2 g 2 g Topical QID PRN diphenhydrAMINE (BENADRYL) capsule 50 mg 50 mg Oral At Bedtime diphenhydrAMINE (BENADRYL) capsule 50 mg 50 mg Oral DAILY PRN folic acid tablet 1 mg 1 mg Oral Daily gabapentin (NEURONTIN) capsule 1,200 mg 1,200 mg Oral TID hydrocortisone 1 % cream Topical BID PRN lidocaine (ASPERCREAM) 4 % patch 2 Patch 2 Patch Transdermal Daily lidocaine (XYLOCAINE) 5 % ointment Topical TID PRN methocarbamol (ROBAXIN) tablet 750 mg 750 mg Oral QID PRN metoprolol succinate (TOPROL XL) extended release tablet 25 mg 25 mg Oral Daily nicotine (COMMIT) lozenge 2 mg 2 mg Oral Q1H PRN Or nicotine (NICORETTE) gum 2 mg 2 mg Oral Q1H PRN OLANZapine (ZyPREXA ZYDIS) disintegrating tablet 10 mg 10 mg Oral BID PRN pantoprazole DR (PROTONIX) tablet 40 mg 40 mg Oral Daily at 6 am QUEtiapine (SEROquel) tablet 800 mg 800 mg Oral At Bedtime tamsulosin (FLOMAX) capsule 0.4 mg 0.4 mg Oral Daily after a meal thiamine (VITAMIN B-1) tablet 100 mg 100 mg Oral Daily valACYclovir (VALTREX) tablet 1,000 mg 1,000 mg Oral Daily Food intake: Amount of Diet Consumed (last 3 days) Date/Time Intake (%) 07/28/23 1700 100%;Dinner 07/28/23 1200 100%;Lunch 07/28/23 0824 100%;Breakfast 07/27/23 1805 100%;Dinner 07/27/23 1100 100%;Lunch 07/27/23 0840 100%;Breakfast 07/26/23 1723 100%;Dinner 07/26/23 1200 100%;Lunch 07/26/23 0838 100%;Breakfast ALLERGY No Known Allergies MENTAL STATUS EXAM Filed Vitals: 07/26/23 1814 07/27/23 0900 07/27/23 1612 07/28/23 0824 BP: 138/82 (!) 142/92 135/85 (!) 140/93 Pulse: 86 90 88 85 Resp: 16 18 16 16 Temp: 98 ??F (36.7 ??C) 98.2 ??F (36.8 ??C) 98.6 ??F (37 ??C) 98.2 ??F (36.8 ??C) TempSrc: Temporal Artery Oral Temporal Artery Skin SpO2: 97% 100% 98% 100% Weight: Height: Appearance: alert, intermittent eye contact, wearing scrubs, adequate grooming, appears older than stated age Behavior: engaged, needy, med seeking, more elevated and animated Motor: restless Gait and Station: unimpaired Speech: normal in rate, normal to loud in volume, hyper-verbal / over-inclusive Language: intact Thought process: largely linear Thought content: denied thoughts of self harm, SI, HI, AH, and/or VH; +paranoia re demons ? Associations: grossly intact Mood: good Affect: anxious, less intense/irritable Orientation: grossly oriented Attention: intact Memory: impaired Insight: poor Judgment: poor CONSULTATION [facility], 07/24/23: Assessment / Recommendations Follow up on labs show creat 0.96, returned to normal range and resolved USAMA. K is 5.1 but sample hemolyzed. med consulted on 07/23/23 because of chronic back/neck/shoulder pain. To me, pt reports chronic low back, B/L hip, and shoulder pain. Frustrated that doctors will not prescribe him opioids, and that they recommend against diclofenac due to kidney issues. 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 In several studies, NSAIDshave shown to further increase the risk for thrombotic CV events as well as bleeding events. He is on ASA and addition of NSAID will increase risk of GI bleeding, as well. No current red flag symptoms for neck/back/shoulder pain, actually appears more controlled than previously per patient's report/chart review. Plan: - gabapentin has been helpful - continue 600 mg TID - lidocaine patch lower back has been helpful - continue daily; also offer additional lidocaine patch for neck or shoulder pain if pt desires - tylenol 650 mg prn changed to 1000 mg TID scheduled - diclofenac gel ordered instead to use topically as less systemic absorption - Given patient's chronic difficult to control pain and his h/o of self medicating with meds he buys off internet, I do think it is important to find a pain regimen that will control pt's chronic pain in a meaningful way so that he is less likely to use the internet to buy pills that are not prescribed to him - given it is the weekend, pain team is not available, but would consider primary team consult them and/or send OP referral to pain clinic for patient at hospital discharge. Pain team was consulted during a previous admission in May 2023, but he was not interested in any options other than opioids at that time. He did not ask me about opioids during our visit, so I believe he may nowbe open to more options, perhaps even intraarticular injections for shoulder/hip/back pain. med will sign off. Please reach out with any questions/concerns. Orni Nelson PA-C PAIN MANAGEMENT, 07/25: TREATMENT RECOMMENDATIONS/PLAN: Increase gabapentin to 1200mg TID Elavil 50mg QHS for sleep and nerve pain Change flexeril to robaxin 750 mg QID PRN NSAIDS could be considered in the future. Overall high risk patient with severe substance use disorder Will add non-opioid adjuvants. I did talk to him about suboxone; since he doesn't have opioid use disorder, this would not be my first preference. However, I would avoid pure opioid agonists at this time. ASSESSMENT AND RECOMMENDATIONS DISCUSSED WITH: Kristin Rutledge PA-C Thank you for consulting the Inpatient Pain Management Service. Please contact me with any questions or concerns. Aaron Amadordarrell Alvarado is a 57 y.o. male who has been admitted to station [facility] for AH, paranoia, substance withdrawal, and possible [...] his room over the weekend. Admitted to [facility]: 07/20: Restless on exam. Reported +AH and +paranoia (under investigation - which he is starting toquestion as the truth). Less disorganized as compared to when on Medicine. He said he was not really sure about the events [employer]. He drinks alcohol heavily, nearly 3L of [employer] rum per week. He has been prescribed Lexapro, but he is not consistent w taking it. Sometimes I need more, referring to self medicating. He used methamphetamine [employer]. He said he has +AH at his baseline, but while using methamphetamine, the +AH escalated and, it got bad. Someone could have . It all seemed so real. He said he began to think that he would be better off if he just used all of the methamph etamine, so he used some IV. His paranoia escalated and he began to feel like someone was going to come through his door, so I ate the rest of the bag b/c I thought I would need the rage and energy to fight them off. Guarded at times. Hesitantly, he denied having SI and he denied the [employer] event asa SA. 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 When initially in the ED, he reported +SI (also while on Medicine) and, when questioned about ingestion, he replied w not enough. Per chart review from the 05/2023 Medicine admission (admitted for erratic driving / legal blood draw, while in the ED he had a syncopal episode and required Medicine admission then transfer to [facility]): He reports that he had about 2 hospitalizations in the past month. One in [facility] (04/24/2022) for acute toxic encephalopathy, drug overdose (cannabinoids, methamphetamine), and alcohol withdrawal w/ delirium tremens which required large amount of benzo. He says he had another hospitalization in [place]. He reports that one of these hospitalizations led to ICU stay and he was told that his kidney were failing, but no detailed records of outside hospital stay are available on admission. 07/21: Restless, argumentative, anxious, irritable, and illogical. He is agreeable to [facility] tx, especially to access psychotherapy, knowing it will likely eventually be court ordered. However, he also stated that he has no intentions of quitting alcohol all together, but only cutting back, b/c of his chronic pain. Additionally, he is unwilling to stay in the hospital beyond his 72h hold, in order tofacilitate a door to door transfer to [facility] tx. He was educated on his risk of relapse and reminded of his recent hospitalizations, related to use / overdosing. Pt was reminded that he himself stated someone could have in relation to the events prior to this admission. He does not see his drinking as a problem, stating, I don't drive. Manager Convention noted that he recently missed a court date for aDUI charge and, last hospitalization here, he was brought here for a legal blood draw after being stopped for erratic driving. When asked about the pill bottles that were scattered around him, when found [employer], he could not give an explanation. Will file a petition for civil commitment. 07/22: Quite tense, irritable, and rude on approach. Said he wants to d/c directly to [facility] he suspects there must be a bench warrant issued for his arrest d/t missing a DUI court date a few weeks back. He slept better, but asked for PRN Benadryl instead of PRN Melatonin. Thought processwas linear. No overt paranoia. Reported +AH last edil. [facility] is supporting petition for commitment. 07/23: He is frustrated w not being able to access an opioid or Voltaren for his chronic pain. He has no insight into risk / benefit considerations. He is resistant to any treatment that takes more effort than popping a pill. He reluctantly agreed to a pain medicine consult. He was noted to be diaphoretic, but has not been scoring high enough on CIWA to warrant PRN BZD. He talked at length about his oldest son's by hanging and about how he has struggled in the aftermath and has failed to adequately support his second son over the years. His second son has attempted suicide numerous timesand is currently in [facility] tx. He added, I must before him. The pt talked about his hinduism bel iefs, about not believing in suicide, but having come to the conclusion that even someone who does not believe in suicide can get to the point of attempting suicide. He denied thoughts of self harm, SI, HI, and VH. He reported +AH and +tactile hallucinations >> hypnagogic-like. Affect was anxious, tense, and irritable. 07/24: No diaphoresis today. Using PRNs for sleep. Denied further AH, VH, or tactile hallucinations.(However, his report of hallucinations varies from person to person.) Agreeable to med trials for various concerns, but tends to want to immediately jump to large doses. Anxious, intense at times, and restless. Thought process is largely linear. Denied SI / HI. He mentioned this hospitalization as the 4th time he's been in the ICU in as many months. 07/25: More elevated, animated, intense, and irritable. Continues restless. Med seeking - more of (to include opioids, BZD, and now stimulants, but also other more benign meds) - and wanting to go straight to high doses. He is a very inconsistent historian w details changing from day to day, person to person. Memory impairment is noted. He noted that he did not trash his kidneys as badly prior to this admission as compared to his other 3 recent admissions. He minimized the significance of his past renal injury and dismissed the warnings he has received by healthcare professionals re the risks to his vital organs. He called them over-dramatic. Denied AH / SI. +Paranoia re demons? Hyper-verbal. 07/26: Continued fixation on medications, feels he is in need of something additional for both pain and sleep -- pt offers diclofenac and Xanax as effective interventions, but understanding when web content writer offered renal concerns with diclofenac and habit-forming tendencies with Xanax. Pt hopeful for Benadryl for sleep which was agreed upon. Discussed Gabapentin additionally as options for both pain, sleep and RLS. 07/27: Less intense, irritable than yesterday and reporting sufficient sleep for the first time in years. Generally fixated on pain, medication options in case things fail down the road during current hospitalization. Apart from this, pt occasionally offers comments about how Xanax and opiate medications would simplify my long med list, but redirectable. 07/28: Largely unchanged, though briefly frustrated with not having Robaxin scheduled. Will do so moving forward per his request. Feels ready for CD referrals, aware that final commitment hearing is not until next week. DIAGNOSES & PLAN Principal Psychiatric / Substance Use Diagnoses: - encephalopathy s/p ingestion: improved - bipolar disorder w psychosis vs SCAD by hx - r/o substance induced psychosis - alcohol use disorder, severe - methamphetamine use disorder, severe - BZD use disorder, severe - alcohol / BZD withdrawal Medical Concerns to be addressed: - USAMA: resolved - ?element of CKD? - mild rhabdomyolysis: improved - chronic back pain: see Medicine consult - HTN: restarted [employer] medications - GERD: restarted PPI - HLD: restarted statin - LUTS: flomax - Patient with moderate malnutrition in the context of social/environmental circumstances during hospital stay and remains with at risk for malnutrition. Patient requiring additional resources due todegree of malnutrition during hospital stay. Dietitian following with the following nutrition therapy plan: 1.) Modify boost TID 2.) Encourage oral intakes Medication Ordered/Consults/Labs/Tests Ordered: 07/18: Delirium precautions ordered. Seroquel ordered 100 mg QHS and 50 mg q4PRN. Zyprexa 5 PO mg vs10 mg IV - TID PRN if needed. UDS ordered. Will order high dosed Thiamine. Will order addiction consult. Gabapentin 300 mg TID ordered for withdrawal symptoms. 07/19: Increase quetiapine to 100mg TID. [employer] dose was 800mg qHS. UDS+ for amphetamines. 07/20: Will give Seroquel 200mg at bedtime this edil then combine doses / change dose to 400mg po qhs. Will titrate to [employer] dose of 800mg po qhs as tolerated / indicated. Hold Lexapro for now. He has not been consistently taking it. Increase Neurontin to 600mg po TID. Offer Zyprexa 10mg po BID PRN. Continue CIWA protocol w PRN Valium and PRN Clonidine. 07/21: Lidocaine patch daily. Medicine consult if PC is issued. 07/22: Medicine consult for chronic back pain management. Increase Seroquel to 500mg po qhs. D/c PRNMelatonin and replace w PRN Benadryl. 07/23: Increase Seroquel to 600mg po qhs. Per his request, change Flexeril 10mg from TID PRN to TID.Will avoid Requip for RLS as it could worsen his DC sxs. Instead, will increase Neurontin to 900mg po TID. Spiritual care consult ordered. 07/24: Advance Seroquel to 700mg po qhs. Add Trazodone 50mg po qhs + 50mg po qhs PRN. Changed Benadryl to PRN itching only as this could worsen RLS, if that is truly what he has. Will discuss the possibility of akathisia (vs RLS) tomorrow. 07/25: Increase Seroquel to his [employer] dose of 800mg po qhs. Add a 2nd Lidocaine patch. Maximize daily APAP dose by allowing a daily PRN dose to his TID scheduled APAP. Pain Management consult placed. Trial Cogentin 1mg po BID for possible akathisia. D/c PRN Benadryl as he has Trazodone available. D/c CIWA. 07/26: DC Aminah, may consider non-cardioselective beta messi in place of Toprol (ie. Inderal) for better akathisia coverage if RLS symptoms do not improve with increased Gabapentin. 07/27: Desonide cream BID for dermatitis. 07/28: Scheduled Robaxin 750 mg hs per pt request. Milieu Management: Admit to: [facility] Legal: >> PC (prelim 07/29) Acuity level: Red (caution - at risk, monitored for safety) Encouraged the patient to participate in unit activities. Level of Observation: No additional monitoring needed RE-CERTIFICATION & RISK ASSESSMENT The patient continues to need, on a daily basis, active inpatient psychiatric treatment for ongoingdiagnostic assessment and treatment of the following symptoms: AH, paranoia, substance withdrawal, and possible SI w possible SA prior to admission. The treatment can reasonably be expected to improve the patient's condition. Estimated length of stay is 14 days. Anticipated disposition: home vs care home vs [facility] tx Risk Assessment: assault: Medium - paranoid Suicide Risk: Low Patient Strengths: willing to take medications Patient was additionally evaluated in person by Dr. Crawley, who agrees with the above documentation and plan. Jaden Wetzel PA-C * Jadne Wetzel PA-C - 07/28/2023 8:39 AM CDT [facility] Psychiatry Progress Note PATIENT NAME: Nicanor Alvarado DATE OF SERVICE: 07/28/2023 ATTENDING PRACTITIONER: Jaden Wetzel PA-C HOSPITAL DAY # 8 CHIEF COMPLAINT subsequent inpatient psychiatric encounter INTERVAL HISTORY Nicanor Alvarado was seen in f/u by web content writer and MD for f/u, where he was ambulating throughout the unit/agreeable to interview. States I haven't gotten a full night's rest in years. Last night, I got a full night's rest. Very happy with efficacy of Benadryl, states he did not need the second doseor the Zyprexa. Asked about possible interventions moving forward if he is having sleep concerns. Otherwise, reports pain to be generally controlled and finds lidocaine patches/gel helpful. Additional benefit from eggcrate mattress. Denies MH concerns at this time, only other request was to have Desonide cream prescribed for skin outbreak. REVIEW OF SYSTEMS Constitutional: did not endorse physical health concerns aside from as discussed above + chronic back pain Psychiatric: denied thoughts of self harm, SI, HI, AH, and/or VH; see above Medication side effects: none endorsed CHART REVIEW & MULTIDISCIPLINARY TEAM MEETING Met with the multidisciplinary treatment team and discussed care and treatment planning. RN Report: Subjective: I've had insomnia for a decade. If I wake up at 1:30, can I take another dose of Benadryl, and Robaxin for the pain, and the ointment? Objective: Patient present on the unit throughout the evening, occasionally social with peers, watching TV. Patient c/o moderately severe neck and back pain. PRN Robaxin and Lidocaine ointment given. Patient cooperative with scheduled medications. Egg crate mattress applied to bed. Patient c/o burning, slight inflammation, and irritation near genitalia. Patient believes this to be a herpes flare up, as he has had them before. Patient has been on valacyclovir in the past, for treatment and preventive. Patient stated, Normally I take it so I don't get flare ups, I stopped taking it, and I haven't been taking it here, because my meds haven't been straighten out, but now I need it, I feel it really bad. HO notified. Medication applied to MAR. Patient denies all psych symptoms. SW Report: reviewed and discussed Group attendance and participation: 2/3 OT PRN medications: reviewed MAR OBJECTIVE Hours of Sleep: Patient Vitals for the past 72 hrs: Sleep Hours 07/28/23 0641 7.8 HOURS 07/27/23 2243 1.8 HOURS 07/27/23 1458 1 HOURS 07/27/23 0643 7.8 HOURS 07/26/23 2028 0.5 HOURS 07/26/23 1501 0 HOURS 07/26/23 0634 7.8 HOURS 07/25/23 2253 2 HOURS 07/25/23 1446 1.3 HOURS LABS: No results found for this or any previous visit (from the past 24 hour(s)). Current Facility-Administered Medications Medication Dose Route Frequency acetaminophen (TYLENOL) tablet 1,000 mg 1,000 mg Oral DAILY PRN acetaminophen (TYLENOL) tablet 1,000 mg 1,000 mg Oral TID amitriptyline (ELAVIL) tablet 50 mg 50 mg Oral At Bedtime amLODIPine (NORVASC) tablet 5 mg 5 mg Oral Daily aspirin chewable tablet 81 mg 81 mg Oral Daily atorvastatin (LIPITOR) tablet 20 mg 20 mg Oral Evening senna (SENOKOT) tablet 2 Tablet 2 Tablet Oral BID PRN And polyethylene glycol (MIRALAX) oral powder 17 g 17 g Oral DAILY PRN And bisacodyl (DULCOLAX) rectal suppository 10 mg 10 mg Rectal DAILY PRN calcium carbonate (TUMS) chewable tablet 1,000 mg 1,000 mg Oral Q4H PRN diclofenac (VOLTAREN) gel 2 g 2 g Topical QID PRN diphenhydrAMINE (BENADRYL) capsule 50 mg 50 mg Oral At Bedtime diphenhydrAMINE (BENADRYL) capsule 50 mg 50 mg Oral DAILY PRN folic acid tablet 1 mg 1 mg Oral Daily gabapentin (NEURONTIN) capsule 1,200 mg 1,200 mg Oral TID hydrocortisone 1 % cream Topical BID PRN lidocaine (ASPERCREAM) 4 % patch 2 Patch 2 Patch Transdermal Daily lidocaine (XYLOCAINE) 5 % ointment Topical TID PRN methocarbamol (ROBAXIN) tablet 750 mg 750 mg Oral QID PRN metoprolol succinate (TOPROL XL) extended release tablet 25 mg 25 mg Oral Daily nicotine (COMMIT) lozenge 2 mg 2 mg Oral Q1H PRN Or nicotine (NICORETTE) gum 2 mg 2 mg Oral Q1H PRN OLANZapine (ZyPREXA ZYDIS) disintegrating tablet 10 mg 10 mg Oral BID PRN pantoprazole DR (PROTONIX) tablet 40 mg 40 mg Oral Daily at 6 am QUEtiapine (SEROquel) tablet 800 mg 800 mg Oral At Bedtime tamsulosin (FLOMAX) capsule 0.4 mg 0.4 mg Oral Daily after a meal thiamine (VITAMIN B-1) tablet 100 mg 100 mg Oral Daily valACYclovir (VALTREX) tablet 1,000 mg 1,000 mg Oral Daily Food intake: Amount of Diet Consumed (last 3 days) Date/Time Intake (%) 07/27/23 1805 100%;Dinner 07/27/23 1100 100%;Lunch 07/27/23 0840 100%;Breakfast 07/26/23 1723 100%;Dinner 07/26/23 1200 100%;Lunch 07/26/23 0838 100%;Breakfast 07/25/23 1700 100%;Dinner 07/25/23 1200 100%;Lunch 07/25/23 0807 100%;Breakfast ALLERGY No Known Allergies MENTAL STATUS EXAM Filed Vitals: 07/26/23 1814 07/27/23 0900 07/27/23 1612 07/28/23 0824 BP: 138/82 (!) 142/92 135/85 (!) 140/93 Pulse: 86 90 88 85 Resp: 16 18 16 16 Temp: 98 ??F (36.7 ??C) 98.2 ??F (36.8 ??C) 98.6 ??F (37 ??C) 98.2 ??F (36.8 ??C) TempSrc: Temporal Artery Oral Temporal Artery Skin SpO2: 97% 100% 98% 100% Weight: Height: Appearance: alert, intermittent eye contact, wearing scrubs, adequate grooming, appears older than stated age Behavior: engaged, needy, med seeking, more elevated and animated Motor: restless Gait and Station: unimpaired Speech: normal in rate, normal to loud in volume, hyper-verbal / over-inclusive Language: intact Thought process: largely linear Thought content: denied thoughts of self harm, SI, HI, AH, and/or VH; +paranoia re demons ? Associations: grossly intact Mood: I finally slept Affect: anxious, less intense/irritable Orientation: grossly oriented Attention: intact Memory: impaired Insight: poor Judgment: poor CONSULTATION [facility], 07/24/23: Assessment / Recommendations Follow up on labs show creat 0.96, returned to normal range and resolved USAMA. K is 5.1 but sample hemolyzed. med consulted on 07/23/23 because of chronic back/neck/shoulder pain. To me, pt reports chronic low back, B/L hip, and shoulder pain. Frustrated that doctors will not prescribe him opioids, and that they recommend against diclofenac due to kidney issues. 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 Although from a kidney perspective it may be safe to use NSAIDs, danny for an acute/short term need,I still do not believe this is the best nursing home medication for this patient for pain control moreso because of his cardiac risks with longstanding HLD, HTN, age, gender. In several studies, NSAIDshave shown to further increase the risk for thrombotic CV events as well as bleeding events. He is on ASA and addition of NSAID will increase risk of GI bleeding, as well. No current red flag symptoms for neck/back/shoulder pain, actually appears more controlled than previously per patient's report/chart review. Plan: - gabapentin has been helpful - continue 600 mg TID - lidocaine patch lower back has been helpful - continue daily; also offer additional lidocaine patch for neck or shoulder pain if pt desires - tylenol 650 mg prn changed to 1000 mg TID scheduled - diclofenac gel ordered instead to use topically as less systemic absorption - Given patient's chronic difficult to control pain and his h/o of self medicating with meds he buys off internet, I do think it is important to find a pain regimen that will control pt's chronic pain in a meaningful way so that he is less likely to use the internet to buy pills that are not prescribed to him - given it is the weekend, pain team is not available, but would consider primary team consult them and/or send OP referral to pain clinic for patient at hospital discharge. Pain team was consulted during a previous admission in May 2023, but he was not interested in any options other than opioids at that time. He did not ask me about opioids during our visit, so I believe he may nowbe open to more options, perhaps even intraarticular injections for shoulder/hip/back pain. [facility] will sign off. Please reach out with any questions/concerns. Orin Nelson PA-C PAIN MANAGEMENT, 07/25: TREATMENT RECOMMENDATIONS/PLAN: Increase gabapentin to 1200mg TID Elavil 50mg QHS for sleep and nerve pain Change flexeril to robaxin 750 mg QID PRN NSAIDS could be considered in the future. Overall high risk patient with severe substance use disorder Will add non-opioid adjuvants. I did talk to him about suboxone; since he doesn't have opioid use disorder, this would not be my first preference. However, I would avoid pure opioid agonists at this time. ASSESSMENT AND RECOMMENDATIONS DISCUSSED WITH: Kristin Rutledge PA-C Thank you for consulting the Inpatient Pain Management Service. Please contact me with any questions or concerns. Aaron Alvarado is a 57 y.o. male who has been admitted to station [facility] for AH, paranoia, substance withdrawal, and possible [...] his room over the weekend. Admitted to [facility]: 07/20: Restless on exam. Reported +AH and +paranoia (under investigation - which he is starting toquestion as the truth). Less disorganized as compared to when on Medicine. He said he was not really sure about the events [employer]. He drinks alcohol heavily, nearly 3L of [employer] rum per week. He has been prescribed Lexapro, but he is not consistent w taking it. Sometimes I need more, referring to self medicating. He used methamphetamine [employer]. He said he has +AH at his baseline, but while using methamphetamine, the +AH escalated and, it got bad. Someone could have . It all seemed so real. He said he began to think that he would be better off if he just used all of the methamph etamine, so he used some IV. His paranoia escalated and he began to feel like someone was going to come through his door, so I ate the rest of the bag b/c I thought I would need the rage and energy to fight them off. Guarded at times. Hesitantly, he denied having SI and he denied the [employer] event asa SA. 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 When initially in the ED, he reported +SI (also while on Medicine) and, when questioned about ingestion, he replied w not enough. Per chart review from the 05/2023 Medicine admission (admitted for erratic driving / legal blood draw, while in the ED he had a syncopal episode and required Medicine admission then transfer to [facility]): He reports that he had about 2 hospitalizations in the past month. One in [facility] (04/24/2022) for acute toxic encephalopathy, drug overdose (cannabinoids, methamphetamine), and alcohol withdrawal w/ delirium tremens which required large amount of benzo. He says he had another hospitalization in [place]. He reports that one of these hospitalizations led to ICU stay and he was told that his kidney were failing, but no detailed records of outside hospital stay are available on admission. 07/21: Restless, argumentative, anxious, irritable, and illogical. He is agreeable to [facility] tx, especially to access psychotherapy, knowing it will likely eventually be court ordered. However, he also stated that he has no intentions of quitting alcohol all together, but only cutting back, b/c of his chronic pain. Additionally, he is unwilling to stay in the hospital beyond his 72h hold, in order tofacilitate a door to door transfer to [facility] tx. He was educated on his risk of relapse and reminded of his recent hospitalizations, related to use / overdosing. Pt was reminded that he himself stated someone could have in relation to the events prior to this admission. He does not see his drinking as a problem, stating, I don't drive. Manager Convention noted that he recently missed a court date for aDUI charge and, last hospitalization here, he was brought here for a legal blood draw after being stopped for erratic driving. When asked about the pill bottles that were scattered around him, when found [employer], he could not give an explanation. Will file a petition for civil commitment. 07/22: Quite tense, irritable, and rude on approach. Said he wants to d/c directly to [facility] he suspects there must be a bench warrant issued for his arrest d/t missing a DUI court date a few weeks back. He slept better, but asked for PRN Benadryl instead of PRN Melatonin. Thought processwas linear. No overt paranoia. Reported +AH last edil. [facility] is supporting petition for commitment. 07/23: He is frustrated w not being able to access an opioid or Voltaren for his chronic pain. He has no insight into risk / benefit considerations. He is resistant to any treatment that takes more effort than popping a pill. He reluctantly agreed to a pain medicine consult. He was noted to be diaphoretic, but has not been scoring high enough on CIWA to warrant PRN BZD. He talked at length about his oldest son's by hanging and about how he has struggled in the aftermath and has failed to adequately support his second son over the years. His second son has attempted suicide numerous timesand is currently in [facility] tx. He added, I must before him. The pt talked about his hinduism bel iefs, about not believing in suicide, but having come to the conclusion that even someone who does not believe in suicide can get to the point of attempting suicide. He denied thoughts of self harm, SI, HI, and VH. He reported +AH and +tactile hallucinations >> hypnagogic-like. Affect was anxious, tense, and irritable. 07/24: No diaphoresis today. Using PRNs for sleep. Denied further AH, VH, or tactile hallucinations.(However, his report of hallucinations varies from person to person.) Agreeable to med trials for various concerns, but tends to want to immediately jump to large doses. Anxious, intense at times, and restless. Thought process is largely linear. Denied SI / HI. He mentioned this hospitalization as the 4th time he's been in the ICU in as many months. 07/25: More elevated, animated, intense, and irritable. Continues restless. Med seeking - more of (to include opioids, BZD, and now stimulants, but also other more benign meds) - and wanting to go straight to high doses. He is a very inconsistent historian w details changing from day to day, person to person. Memory impairment is noted. He noted that he did not trash his kidneys as badly prior to this admission as compared to his other 3 recent admissions. He minimized the significance of his past renal injury and dismissed the warnings he has received by healthcare professionals re the risks to his vital organs. He called them over-dramatic. Denied AH / SI. +Paranoia re demons? Hyper-verbal. 07/26: Continued fixation on medications, feels he is in need of something additional for both pain and sleep -- pt offers diclofenac and Xanax as effective interventions, but understanding when web content writer offered renal concerns with diclofenac and habit-forming tendencies with Xanax. Pt hopeful for Benadryl for sleep which was agreed upon. Discussed Gabapentin additionally as options for both pain, sleep and RLS. 07/27: Less intense, irritable than yesterday and reporting sufficient sleep for the first time in years. Generally fixated on pain, medication options in case things fail down the road during current hospitalization. Apart from this, pt occasionally offers comments about how Xanax and opiate medications would simplify my long med list, but redirectable. DIAGNOSES & PLAN Principal Psychiatric / Substance Use Diagnoses: - encephalopathy s/p ingestion: improved - bipolar disorder w psychosis vs SCAD by hx - r/o substance induced psychosis - alcohol use disorder, severe - methamphetamine use disorder, severe - BZD use disorder, severe - alcohol / BZD withdrawal Medical Concerns to be addressed: - USAMA: resolved - ?element of CKD? - mild rhabdomyolysis: improved - chronic back pain: see Medicine consult - HTN: restarted [employer] medications - GERD: restarted PPI - HLD: restarted statin - LUTS: flomax - Patient with moderate malnutrition in the context of social/environmental circumstances during hospital stay and remains with moderate malnutrition in the context of social/environmental circumstances. Patient requiring additional resources due to degree of malnutrition during hospital stay. Dietitian following with the following nutrition therapy plan: 1.) Boost TID 2.) Encourage oral intakes Medication Ordered/Consults/Labs/Tests Ordered: 07/18: Delirium precautions ordered. Seroquel ordered 100 mg QHS and 50 mg q4PRN. Zyprexa 5 PO mg vs10 mg IV - TID PRN if needed. UDS ordered. Will order high dosed Thiamine. Will order addiction consult. Gabapentin 300 mg TID ordered for withdrawal symptoms. 07/19: Increase quetiapine to 100mg TID. [employer] dose was 800mg qHS. UDS+ for amphetamines. 07/20: Will give Seroquel 200mg at bedtime this edil then combine doses / change dose to 400mg po qhs. Will titrate to [employer] dose of 800mg po qhs as tolerated / indicated. Hold Lexapro for now. He has not been consistently taking it. Increase Neurontin to 600mg po TID. Offer Zyprexa 10mg po BID PRN. Continue CIWA protocol w PRN Valium and PRN Clonidine. 07/21: Lidocaine patch daily. Medicine consult if [facility] is issued. 07/22: Medicine consult for chronic back pain management. Increase Seroquel to 500mg po qhs. D/c PRNMelatonin and replace w PRN Benadryl. 07/23: Increase Seroquel to 600mg po qhs. Per his request, change Flexeril 10mg from TID PRN to TID.Will avoid Requip for RLS as it could worsen his DC sxs. Instead, will increase Neurontin to 900mg po TID. Spiritual care consult ordered. 07/24: Advance Seroquel to 700mg po qhs. Add Trazodone 50mg po qhs + 50mg po qhs PRN. Changed Benadryl to PRN itching only as this could worsen RLS, if that is truly what he has. Will discuss the possibility of akathisia (vs RLS) tomorrow. 07/25: Increase Seroquel to his [employer] dose of 800mg po qhs. Add a 2nd Lidocaine patch. Maximize daily APAP dose by allowing a daily PRN dose to his TID scheduled APAP. Pain Management consult placed. Trial Cogentin 1mg po BID for possible akathisia. D/c PRN Benadryl as he has Trazodone available. D/c CIWA. 07/26: DC Aminah, may consider non-cardioselective beta messi in place of Toprol (ie. Inderal) for better akathisia coverage if RLS symptoms do not improve with increased Gabapentin. 07/27: Desonide cream BID for dermatitis. Milieu Management: Admit to: [facility]4 Legal: >> [facility] (prelim 07/29) Acuity level: Red (caution - at risk, monitored for safety) Encouraged the patient to participate in unit activities. Level of Observation: No additional monitoring needed RE-CERTIFICATION & RISK ASSESSMENT The patient continues to need, on a daily basis, active inpatient psychiatric treatment for ongoingdiagnostic assessment and treatment of the following symptoms: AH, paranoia, substance withdrawal, and possible SI w possible SA prior to admission. The treatment can reasonably be expected to improve the patient's condition. Estimated length of stay is 14 days. Anticipated disposition: home vs care home vs [facility] tx Risk Assessment: assault: Medium - paranoid Suicide Risk: No Acute Risk Patient Strengths: willing to take medications Patient was additionally evaluated in person by Dr. Crawley, who agrees with the above documentation and plan. Jaden Wetzel PA-C * Jaden Wetzel PA-C - 07/27/2023 8:33 AM CDT [facility] Psychiatry Progress Note PATIENT NAME: Nicanor Alvarado DATE OF SERVICE: 07/27/2023 ATTENDING PRACTITIONER: Jaden Wetzel PA-C HOSPITAL DAY # 7 CHIEF COMPLAINT subsequent inpatient psychiatric encounter INTERVAL HISTORY Nicanor Alvarado was seen in f/u by web content writer and MD for f/u, where he was sitting on the unit but agreed to interview in dining room. States he has two problems he wished to address. Proceeded to discuss plethora of back, neck and should surgeries he has had over the last several years. Chronic pain persists as a result, pt states he was taken off of diclofenac and would like to get back on. Discussed need for lab monitoring before this could be considered; additionally that pain medicine is following and are likely the team that would prescribe interventions moving forward for pain. Reiterated current changes in place including increase of Gabapentin dose. Second issue pt wished to discuss surrounded sleep; states the only thing that has ever worked wasXanax, would take two of them and found to be effective. Further, states there was an agreement tooffer Benadryl yesterday but it was unfortunately discontinued; would like this back which team agreed to. Reviewed other medications, including Cogentin for EPS/akathisia, and how this may not be helpful for him. Will discontinue and monitor efficacy of Gabapentin for RLS, consider switch to different (non-cardioselective) beta messi if symptoms persist. REVIEW OF SYSTEMS Constitutional: did not endorse physical health concerns aside from as discussed above + chronic back pain Psychiatric: denied thoughts of self harm, SI, HI, AH, and/or VH; see above Medication side effects: none endorsed CHART REVIEW & MULTIDISCIPLINARY TEAM MEETING Met with the multidisciplinary treatment team and discussed care and treatment planning. RN Report: Subjective: They are getting lower and very minimal now. I need my PRN Benadryl Objective: Met the pt in the day room. The pt was cooperative with assessment questions.. Compliantwith medications. Denies AH/VH/SI/HI. Visible on the unit and watched TV in day room. Endorsed auditory hallucination but stated it is getting better. Behaviorally controlled. Requested for PRN Benadryl and it was given. Ate 100% of his dinner. 15 minutes safety check ongoing. SW Report: reviewed and discussed Group attendance and participation: 2/3 OT PRN medications: reviewed MAR OBJECTIVE Hours of Sleep: Patient Vitals for the past 72 hrs: Sleep Hours 07/27/23 0643 7.8 HOURS 07/26/23 2028 0.5 HOURS 07/26/23 1501 0 HOURS 07/26/23 0634 7.8 HOURS 07/25/23 2253 2 HOURS 07/25/23 1446 1.3 HOURS 07/25/23 0636 7.3 HOURS 07/24/23 2212 1 HOURS 07/24/23 1515 0 HOURS LABS: No results found for this or any previous visit (from the past 24 hour(s)). Current Facility-Administered Medications Medication Dose Route Frequency acetaminophen (TYLENOL) tablet 1,000 mg 1,000 mg Oral DAILY PRN acetaminophen (TYLENOL) tablet 1,000 mg 1,000 mg Oral TID amitriptyline (ELAVIL) tablet 50 mg 50 mg Oral At Bedtime amLODIPine (NORVASC) tablet 5 mg 5 mg Oral Daily aspirin chewable tablet 81 mg 81 mg Oral Daily atorvastatin (LIPITOR) tablet 20 mg 20 mg Oral Evening benztropine (COGENTIN) tablet 1 mg 1 mg Oral BID senna (SENOKOT) tablet 2 Tablet 2 Tablet Oral BID PRN And polyethylene glycol (MIRALAX) oral powder 17 g 17 g Oral DAILY PRN And bisacodyl (DULCOLAX) rectal suppository 10 mg 10 mg Rectal DAILY PRN calcium carbonate (TUMS) chewable tablet 1,000 mg 1,000 mg Oral Q4H PRN diclofenac (VOLTAREN) gel 2 g 2 g Topical QID PRN folic acid tablet 1 mg 1 mg Oral Daily gabapentin (NEURONTIN) capsule 1,200 mg 1,200 mg Oral TID hydrocortisone 1 % cream Topical BID PRN lidocaine (ASPERCREAM) 4 % patch 2 Patch 2 Patch Transdermal Daily lidocaine (XYLOCAINE) 5 % ointment Topical TID PRN methocarbamol (ROBAXIN) tablet 750 mg 750 mg Oral QID PRN metoprolol succinate (TOPROL XL) extended release tablet 25 mg 25 mg Oral Daily nicotine (COMMIT) lozenge 2 mg 2 mg Oral Q1H PRN Or nicotine (NICORETTE) gum 2 mg 2 mg Oral Q1H PRN OLANZapine (ZyPREXA ZYDIS) disintegrating tablet 10 mg 10 mg Oral BID PRN pantoprazole DR (PROTONIX) tablet 40 mg 40 mg Oral Daily at 6 am QUEtiapine (SEROquel) tablet 800 mg 800 mg Oral At Bedtime tamsulosin (FLOMAX) capsule 0.4 mg 0.4 mg Oral Daily after a meal thiamine (VITAMIN B-1) tablet 100 mg 100 mg Oral Daily traZODone (DESYREL) tablet 50 mg 50 mg Oral At Bedtime traZODone (DESYREL) tablet 50 mg 50 mg Oral At bedtime PRN Food intake: Amount of Diet Consumed (last 3 days) Date/Time Intake (%) 07/26/23 1723 100%;Dinner 07/26/23 1200 100%;Lunch 07/26/23 0838 100%;Breakfast 07/25/23 1700 100%;Dinner 07/25/23 1200 100%;Lunch 07/25/23 0807 100%;Breakfast 07/24/23 1200 100%;Lunch 07/24/23 0838 100%;Breakfast ALLERGY No Known Allergies MENTAL STATUS EXAM Filed Vitals: 07/25/23 1200 07/25/23 1613 07/26/23 0813 07/26/23 1814 BP: 120/80 137/76 130/81 138/82 Pulse: 82 93 86 86 Resp: Temp: 98.6 ??F (37 ??C) 98.4 ??F (36.9 ??C) 98 ??F (36.7 ??C) TempSrc: Skin Skin Temporal Artery SpO2: 96% 100% 97% Weight: Height: Appearance: alert, intermittent eye contact, wearing scrubs, adequate grooming, appears older than stated age Behavior: engaged, needy, med seeking, more elevated and animated Motor: restless Gait and Station: unimpaired Speech: normal in rate, normal to loud in volume, hyper-verbal / over-inclusive Language: intact Thought process: largely linear Thought content: denied thoughts of self harm, SI, HI, AH, and/or VH; +paranoia re demons ? Associations: grossly intact Mood: not sleeping Affect: anxious, intense, irritable Orientation: grossly oriented Attention: intact Memory: impaired Insight: poor Judgment: poor CONSULTATION [facility], 07/24/23: Assessment / Recommendations Follow up on labs show creat 0.96, returned to normal range and resolved USAMA. K is 5.1 but sample hemolyzed. med consulted on 07/23/23 because of chronic back/neck/shoulder pain. To me, pt reports chronic low back, B/L hip, and shoulder pain. Frustrated that doctors will not prescribe him opioids, and that they recommend against diclofenac due to kidney issues. 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 Although from a kidney perspective it may be safe to use NSAIDs, danny for an acute/short term need,I still do not believe this is the best nursing home medication for this patient for pain control moreso because of his cardiac risks with longstanding HLD, HTN, age, gender. In several studies, NSAIDshave shown to further increase the risk for thrombotic CV events as well as bleeding events. He is on ASA and addition of NSAID will increase risk of GI bleeding, as well. No current red flag symptoms for neck/back/shoulder pain, actually appears more controlled than previously per patient's report/chart review. Plan: - gabapentin has been helpful - continue 600 mg TID - lidocaine patch lower back has been helpful - continue daily; also offer additional lidocaine patch for neck or shoulder pain if pt desires - tylenol 650 mg prn changed to 1000 mg TID scheduled - diclofenac gel ordered instead to use topically as less systemic absorption - Given patient's chronic difficult to control pain and his h/o of self medicating with meds he buys off internet, I do think it is important to find a pain regimen that will control pt's chronic pain in a meaningful way so that he is less likely to use the internet to buy pills that are not prescribed to him - given it is the weekend, pain team is not available, but would consider primary team consult them and/or send OP referral to pain clinic for patient at hospital discharge. Pain team was consulted during a previous admission in May 2023, but he was not interested in any options other than opioids at that time. He did not ask me about opioids during our visit, so I believe he may nowbe open to more options, perhaps even intraarticular injections for shoulder/hip/back pain. [employer] [facility] will sign off. Please reach out with any questions/concerns. Orin Nelson PA-C PAIN MANAGEMENT, 07/25: TREATMENT RECOMMENDATIONS/PLAN: Increase gabapentin to 1200mg TID Elavil 50mg QHS for sleep and nerve pain Change flexeril to robaxin 750 mg QID PRN NSAIDS could be considered in the future. Overall high risk patient with severe substance use disorder Will add non-opioid adjuvants. I did talk to him about suboxone; since he doesn't have opioid use disorder, this would not be my first preference. However, I would avoid pure opioid agonists at this time. ASSESSMENT AND RECOMMENDATIONS DISCUSSED WITH: Kristin Rutledge PA-C Thank you for consulting the Inpatient Pain Management Service. Please contact me with any questions or concerns. Aaron LEVY Nicanor Alvarado is a 57 y.o. male who has been admitted to station [facility] for AH, paranoia, substance withdrawal, and possible [...] his room over the weekend. Admitted to [facility]: 07/20: Restless on exam. Reported +AH and +paranoia (under investigation - which he is starting toquestion as the truth). Less disorganized as compared to when on Medicine. He said he was not really sure about the events [employer]. He drinks alcohol heavily, nearly 3L of [employer]'s rum per week. He has been prescribed Lexapro, but he is not consistent w taking it. Sometimes I need more, referring to self medicating. He used methamphetamine [employer]. He said he has +AH at his baseline, but while using methamphetamine, the +AH escalated and, it got bad. Someone could have . It all seemed so real. He said he began to think that he would be better off if he just used all of the methamph etamine, so he used some IV. His paranoia escalated and he began to feel like someone was going to come through his door, so I ate the rest of the bag b/c I thought I would need the rage and energy to fight them off. Guarded at times. Hesitantly, he denied having SI and he denied the [employer] event asa SA. 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 When initially in the ED, he reported +SI (also while on Medicine) and, when questioned about ingestion, he replied w not enough. Per chart review from the 05/2023 Medicine admission (admitted for erratic driving / legal blood draw, while in the ED he had a syncopal episode and required Medicine admission then transfer to [facility]): He reports that he had about 2 hospitalizations in the past month. One in [facility] (04/24/2022) for acute toxic encephalopathy, drug overdose (cannabinoids, methamphetamine), and alcohol withdrawal w/ delirium tremens which required large amount of benzo. He says he had another hospitalization in [place]. He reports that one of these hospitalizations led to ICU stay and he was told that his kidney were failing, but no detailed records of outside hospital stay are available on admission. 07/21: Restless, argumentative, anxious, irritable, and illogical. He is agreeable to [facility] tx, especially to access psychotherapy, knowing it will likely eventually be court ordered. However, he also stated that he has no intentions of quitting alcohol all together, but only cutting back, b/c of his chronic pain. Additionally, he is unwilling to stay in the hospital beyond his 72h hold, in order tofacilitate a door to door transfer to [facility] tx. He was educated on his risk of relapse and reminded of his recent hospitalizations, related to use / overdosing. Pt was reminded that he himself stated someone could have in relation to the events prior to this admission. He does not see his drinking as a problem, stating, I don't drive. Manager Convention noted that he recently missed a court date for aDUI charge and, last hospitalization here, he was brought here for a legal blood draw after being stopped for erratic driving. When asked about the pill bottles that were scattered around him, when found [employer], he could not give an explanation. Will file a petition for civil commitment. 07/22: Quite tense, irritable, and rude on approach. Said he wants to d/c directly to [facility] he suspects there must be a bench warrant issued for his arrest d/t missing a DUI court date a few weeks back. He slept better, but asked for PRN Benadryl instead of PRN Melatonin. Thought processwas linear. No overt paranoia. Reported +AH last edil. [place] is supporting petition for commitment. 07/23: He is frustrated w not being able to access an opioid or Voltaren for his chronic pain. He has no insight into risk / benefit considerations. He is resistant to any treatment that takes more effort than popping a pill. He reluctantly agreed to a pain medicine consult. He was noted to be diaphoretic, but has not been scoring high enough on CIWA to warrant PRN BZD. He talked at length about his oldest son's by hanging and about how he has struggled in the aftermath and has failed to adequately support his second son over the years. His second son has attempted suicide numerous timesand is currently in [facility] tx. He added, I must before him. The pt talked about his hinduism bel iefs, about not believing in suicide, but having come to the conclusion that even someone who does not believe in suicide can get to the point of attempting suicide. He denied thoughts of self harm, SI, HI, and VH. He reported +AH and +tactile hallucinations >> hypnagogic-like. Affect was anxious, tense, and irritable. 07/24: No diaphoresis today. Using PRNs for sleep. Denied further AH, VH, or tactile hallucinations.(However, his report of hallucinations varies from person to person.) Agreeable to med trials for various concerns, but tends to want to immediately jump to large doses. Anxious, intense at times, and restless. Thought process is largely linear. Denied SI / HI. He mentioned this hospitalization as the 4th time he's been in the ICU in as many months. 07/25: More elevated, animated, intense, and irritable. Continues restless. Med seeking - more of (to include opioids, BZD, and now stimulants, but also other more benign meds) - and wanting to go straight to high doses. He is a very inconsistent historian w details changing from day to day, person to person. Memory impairment is noted. He noted that he did not trash his kidneys as badly prior to this admission as compared to his other 3 recent admissions. He minimized the significance of his past renal injury and dismissed the warnings he has received by healthcare professionals re the risks to his vital organs. He called them over-dramatic. Denied AH / SI. +Paranoia re demons? Hyper-verbal. 07/26: Continued fixation on medications, feels he is in need of something additional for both pain and sleep -- pt offers diclofenac and Xanax as effective interventions, but understanding when web content writer offered renal concerns with diclofenac and habit-forming tendencies with Xanax. Pt hopeful for Benadryl for sleep which was agreed upon. Discussed Gabapentin additionally as options for both pain, sleep and RLS. DIAGNOSES & PLAN Principal Psychiatric / Substance Use Diagnoses: - encephalopathy s/p ingestion: improved - bipolar disorder w psychosis vs SCAD by hx - r/o substance induced psychosis - alcohol use disorder, severe - methamphetamine use disorder, severe - BZD use disorder, severe - alcohol / BZD withdrawal Medical Concerns to be addressed: - USAMA: resolved - ?element of CKD? - mild rhabdomyolysis: improved - chronic back pain: see Medicine consult - HTN: restarted [employer] medications - GERD: restarted PPI - HLD: restarted statin - LUTS: flomax - Patient with moderate malnutrition in the context of social/environmental circumstances during hospital stay and remains with moderate malnutrition in the context of social/environmental circumstances. Patient requiring additional resources due to degree of malnutrition during hospital stay. Dietitian following with the following nutrition therapy plan: 1.) Boost TID 2.) Encourage oral intakes Medication Ordered/Consults/Labs/Tests Ordered: 07/18: Delirium precautions ordered. Seroquel ordered 100 mg QHS and 50 mg q4PRN. Zyprexa 5 PO mg vs10 mg IV - TID PRN if needed. UDS ordered. Will order high dosed Thiamine. Will order addiction consult. Gabapentin 300 mg TID ordered for withdrawal symptoms. 07/19: Increase quetiapine to 100mg TID. [employer] dose was 800mg qHS. UDS+ for amphetamines. 07/20: Will give Seroquel 200mg at bedtime this edil then combine doses / change dose to 400mg po qhs. Will titrate to [employer] dose of 800mg po qhs as tolerated / indicated. Hold Lexapro for now. He has not been consistently taking it. Increase Neurontin to 600mg po TID. Offer Zyprexa 10mg po BID PRN. Continue CIWA protocol w PRN Valium and PRN Clonidine. 07/21: Lidocaine patch daily. Medicine consult if [facility] is issued. 07/22: Medicine consult for chronic back pain management. Increase Seroquel to 500mg po qhs. D/c PRNMelatonin and replace w PRN Benadryl. 07/23: Increase Seroquel to 600mg po qhs. Per his request, change Flexeril 10mg from TID PRN to TID.Will avoid Requip for RLS as it could worsen his DC sxs. Instead, will increase Neurontin to 900mg po TID. Spiritual care consult ordered. 07/24: Advance Seroquel to 700mg po qhs. Add Trazodone 50mg po qhs + 50mg po qhs PRN. Changed Benadryl to PRN itching only as this could worsen RLS, if that is truly what he has. Will discuss the possibility of akathisia (vs RLS) tomorrow. 07/25: Increase Seroquel to his [employer] dose of 800mg po qhs. Add a 2nd Lidocaine patch. Maximize daily APAP dose by allowing a daily PRN dose to his TID scheduled APAP. Pain Management consult placed. Trial Cogentin 1mg po BID for possible akathisia. D/c PRN Benadryl as he has Trazodone available. D/c CIWA. 07/26: MONTEZ Burr, may consider non-cardioselective beta messi in place of Toprol (ie. Inderal) for better akathisia coverage if RLS symptoms do not improve with increased Gabapentin. Milieu Management: Admit to: [facility] Legal: >> [facility] (prelim 07/29) Acuity level: Red (caution - at risk, monitored for safety) Encouraged the patient to participate in unit activities. Level of Observation: No additional monitoring needed RE-CERTIFICATION & RISK ASSESSMENT The patient continues to need, on a daily basis, active inpatient psychiatric treatment for ongoingdiagnostic assessment and treatment of the following symptoms: AH, paranoia, substance withdrawal, and possible SI w possible SA prior to admission. The treatment can reasonably be expected to improve the patient's condition. Estimated length of stay is 14 days. Anticipated disposition: home vs care home vs [facility] tx Risk Assessment: assault: Medium - paranoid Suicide Risk: No Acute Risk Patient Strengths: willing to take medications Patient was additionally evaluated in person by Dr. Crawley, who agrees with the above documentation and plan. Jaden Wetzel PA-C * Kristin Rutledge PA-C - 07/26/2023 2:57 PM CDT [facility] Psychiatry Progress Note PATIENT NAME: Nicanor Alvarado DATE OF SERVICE: 07/26/2023 ATTENDING PRACTITIONER: Kristin Rutledge PA-C HOSPITAL DAY # 6 CHIEF COMPLAINT subsequent inpatient psychiatric encounter INTERVAL HISTORY Nicanor Alvarado was seen in f/u by web content writer. He is a very inconsistent historian w details changingfrom day to day, person to person. Memory impairment is noted. He slept better last night, but did wake d/t pain. He agreed to 2 lidocaine patches. He attempted to negotiate use of NSAIDs. Pt was encouraged to wait for Pain Management's recommendations. His pattern is to want more of / higher dosesof everything. He again mentioned that this is his 4th Medicine hospitalization in as many months -- some in the ICU. He noted that he did not trash his kidneys as badly this time. He minimized thesignificance of his past renal injury and dismissed the warnings he has received by healthcare ebenezer tavera re the risks to his vital organs. He called them over-dramatic. We discussed his RLS dx vs akathisia. He reports his sxs to be dropping stuff and feeling the urge to move. I try to wearout that urge by moving my feet extra fast. Sxs occur all day long, not just evenings / nighttime.He thinks he has ADHD and suggested that maybe a stimulant would be the answer. He had many requests for various meds - stimulants, BZD, opioids. He denied AH. He showed web content writer bruises on both arms and wondered where they came from. He questioned whether or not he maybe really is being held down bydemons at night. REVIEW OF SYSTEMS Constitutional: did not endorse physical health concerns aside from as discussed above + chronic back pain Psychiatric: denied thoughts of self harm, SI, HI, AH, and/or VH; see above Medication side effects: none endorsed CHART REVIEW & MULTIDISCIPLINARY TEAM MEETING Met with the multidisciplinary treatment team and discussed care and treatment planning. RN Report: Subjective: I used to take 400 mg of trazodone I think 50 mg its not enough Objective: Pt visible on the unit watching TV and kept to himself. Behaviorally controlled and med complaint. Patient endorses auditory hallucinations, denies visual hallucinations. Calm and cooperative. CIWA 0. No aggressive behavior. SW Report: reviewed and discussed Group attendance and participation: / OT PRN medications: reviewed MAR OBJECTIVE Hours of Sleep: Patient Vitals for the past 72 hrs: Sleep Hours 07/26/23 1501 0 HOURS 07/26/23 0634 7.8 HOURS 07/25/23 2253 2 HOURS 07/25/23 1446 1.3 HOURS 07/25/23 0636 7.3 HOURS 07/24/23 2212 1 HOURS 07/24/23 1515 0 HOURS 07/24/23 0641 7.5 HOURS 07/23/23 2229 1 HOURS LABS: No results found for this or any previous visit (from the past 24 hour(s)). Current Facility-Administered Medications Medication Dose Route Frequency acetaminophen (TYLENOL) tablet 1,000 mg 1,000 mg Oral DAILY PRN acetaminophen (TYLENOL) tablet 1,000 mg 1,000 mg Oral TID amitriptyline (ELAVIL) tablet 50 mg 50 mg Oral At Bedtime amLODIPine (NORVASC) tablet 5 mg 5 mg Oral Daily aspirin chewable tablet 81 mg 81 mg Oral Daily atorvastatin (LIPITOR) tablet 20 mg 20 mg Oral Evening benztropine (COGENTIN) tablet 1 mg 1 mg Oral BID senna (SENOKOT) tablet 2 Tablet 2 Tablet Oral BID PRN And polyethylene glycol (MIRALAX) oral powder 17 g 17 g Oral DAILY PRN And bisacodyl (DULCOLAX) rectal suppository 10 mg 10 mg Rectal DAILY PRN calcium carbonate (TUMS) chewable tablet 1,000 mg 1,000 mg Oral Q4H PRN diclofenac (VOLTAREN) gel 2 g 2 g Topical QID PRN folic acid tablet 1 mg 1 mg Oral Daily gabapentin (NEURONTIN) capsule 1,200 mg 1,200 mg Oral TID hydrocortisone 1 % cream Topical BID PRN lidocaine (ASPERCREAM) 4 % patch 2 Patch 2 Patch Transdermal Daily lidocaine (XYLOCAINE) 5 % ointment Topical TID PRN methocarbamol (ROBAXIN) tablet 750 mg 750 mg Oral QID PRN metoprolol succinate (TOPROL XL) extended release tablet 25 mg 25 mg Oral Daily nicotine (COMMIT) lozenge 2 mg 2 mg Oral Q1H PRN Or nicotine (NICORETTE) gum 2 mg 2 mg Oral Q1H PRN OLANZapine (ZyPREXA ZYDIS) disintegrating tablet 10 mg 10 mg Oral BID PRN pantoprazole DR (PROTONIX) tablet 40 mg 40 mg Oral Daily at 6 am QUEtiapine (SEROquel) tablet 800 mg 800 mg Oral At Bedtime tamsulosin (FLOMAX) capsule 0.4 mg 0.4 mg Oral Daily after a meal thiamine (VITAMIN B-1) tablet 100 mg 100 mg Oral Daily traZODone (DESYREL) tablet 50 mg 50 mg Oral At Bedtime traZODone (DESYREL) tablet 50 mg 50 mg Oral At bedtime PRN Food intake: Amount of Diet Consumed (last 3 days) Date/Time Intake (%) 07/26/23 1723 100%;Dinner 07/26/23 1200 100%;Lunch 07/26/23 0838 100%;Breakfast 07/25/23 1700 100%;Dinner 07/25/23 1200 100%;Lunch 07/25/23 0807 100%;Breakfast 07/24/23 1200 100%;Lunch 07/24/23 0838 100%;Breakfast 07/23/23 1700 100%;Dinner 07/23/23 1200 100%;Lunch 07/23/23 0800 100%;Breakfast ALLERGY No Known Allergies MENTAL STATUS EXAM Filed Vitals: 07/25/23 1200 07/25/23 1613 07/26/23 0813 07/26/23 1814 BP: 120/80 137/76 130/81 138/82 Pulse: 82 93 86 86 Resp: Temp: 98.6 ??F (37 ??C) 98.4 ??F (36.9 ??C) 98 ??F (36.7 ??C) TempSrc: Skin Skin Temporal Artery SpO2: 96% 100% 97% Weight: Height: Appearance: alert, intermittent eye contact, wearing scrubs, adequate grooming, appears older than stated age Behavior: engaged, needy, med seeking, more elevated and animated Motor: restless Gait and Station: unimpaired Speech: normal in rate, normal to loud in volume, hyper-verbal / over-inclusive Language: intact Thought process: largely linear Thought content: denied thoughts of self harm, SI, HI, AH, and/or VH; +paranoia re demons ? Associations: grossly intact Mood: frustrated, anxious Affect: anxious, intense, irritable Orientation: grossly oriented Attention: intact Memory: impaired Insight: poor Judgment: poor CONSULTATION [facility], 07/24/23: Assessment / Recommendations Follow up on labs show creat 0.96, returned to normal range and resolved USAMA. K is 5.1 but sample hemolyzed. med consulted on 07/23/23 because of chronic back/neck/shoulder pain. To me, pt reports chronic low back, B/L hip, and shoulder pain. Frustrated that doctors will not prescribe him opioids, and that they recommend against diclofenac due to kidney issues. 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 In several studies, NSAIDshave shown to further increase the risk for thrombotic CV events as well as bleeding events. He is on ASA and addition of NSAID will increase risk of GI bleeding, as well. No current red flag symptoms for neck/back/shoulder pain, actually appears more controlled than previously per patient's report/chart review. Plan: - gabapentin has been helpful - continue 600 mg TID - lidocaine patch lower back has been helpful - continue daily; also offer additional lidocaine patch for neck or shoulder pain if pt desires - tylenol 650 mg prn changed to 1000 mg TID scheduled - diclofenac gel ordered instead to use topically as less systemic absorption - Given patient's chronic difficult to control pain and his h/o of self medicating with meds he buys off internet, I do think it is important to find a pain regimen that will control pt's chronic pain in a meaningful way so that he is less likely to use the internet to buy pills that are not prescribed to him - given it is the weekend, pain team is not available, but would consider primary team consult them and/or send OP referral to pain clinic for patient at hospital discharge. Pain team was consulted during a previous admission in May 2023, but he was not interested in any options other than opioids at that time. He did not ask me about opioids during our visit, so I believe he may nowbe open to more options, perhaps even intraarticular injections for shoulder/hip/back pain. med will sign off. Please reach out with any questions/concerns. Orin Nelson PA-C PAIN MANAGEMENT, 07/25: TREATMENT RECOMMENDATIONS/PLAN: Increase gabapentin to 1200mg TID Elavil 50mg QHS for sleep and nerve pain Change flexeril to robaxin 750 mg QID PRN NSAIDS could be considered in the future. Overall high risk patient with severe substance use disorder Will add non-opioid adjuvants. I did talk to him about suboxone; since he doesn't have opioid use disorder, this would not be my first preference. However, I would avoid pure opioid agonists at this time. ASSESSMENT AND RECOMMENDATIONS DISCUSSED WITH: Kristin Rutledge PA-C Thank you for consulting the Inpatient Pain Management Service. Please contact me with any questions or concerns. Aaron Galicia M.D. CAM Alvarado is a 57 y.o. male who [...] his room over the weekend. Admitted to [facility]: 07/20: Restless on exam. Reported +AH and +paranoia (under investigation - which he is starting toquestion as the truth). Less disorganized as compared to when on Medicine. He said he was not really sure about the events [employer]. He drinks alcohol heavily, nearly 3L of [employer] rum per week. He has been prescribed Lexapro, but he is not consistent w taking it. Sometimes I need more, referring to self medicating. He used methamphetamine [employer]. He said he has +AH at his baseline, but while using methamphetamine, the +AH escalated and, it got bad. Someone could have . It all seemed so real. He said he began to think that he would be better off if he just used all of the methamph etamine, so he used some IV. His paranoia escalated and he began to feel like someone was going to come through his door, so I ate the rest of the bag b/c I thought I would need the rage and energy to fight them off. Guarded at times. Hesitantly, he denied having SI and he denied the [employer] event asa SA. 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 When initially in the ED, he reported +SI (also while on Medicine) and, when questioned about ingestion, he replied w not enough. Per chart review from the 05/2023 Medicine admission (admitted for erratic driving / legal blood draw, while in the ED he had a syncopal episode and required Medicine admission then transfer to [facility]): He reports that he had about 2 hospitalizations in the past month. One in [facility] (04/24/2022) for acute toxic encephalopathy, drug overdose (cannabinoids, methamphetamine), and alcohol withdrawal w/ delirium tremens which required large amount of benzo. He says he had another hospitalization in [place]. He reports that one of these hospitalizations led to ICU stay and he was told that his kidney were failing, but no detailed records of outside hospital stay are available on admission. 07/21: Restless, argumentative, anxious, irritable, and illogical. He is agreeable to [facility] tx, especially to access psychotherapy, knowing it will likely eventually be court ordered. However, he also stated that he has no intentions of quitting alcohol all together, but only cutting back, b/c of his chronic pain. Additionally, he is unwilling to stay in the hospital beyond his 72h hold, in order tofacilitate a door to door transfer to [facility] tx. He was educated on his risk of relapse and reminded of his recent hospitalizations, related to use / overdosing. Pt was reminded that he himself stated someone could have in relation to the events prior to this admission. He does not see his drinking as a problem, stating, I don't drive. Manager Convention noted that he recently missed a court date for aDUI charge and, last hospitalization here, he was brought here for a legal blood draw after being stopped for erratic driving. When asked about the pill bottles that were scattered around him, when found [employer], he could not give an explanation. Will file a petition for civil commitment. 07/22: Quite tense, irritable, and rude on approach. Said he wants to d/c directly to [facility] he suspects there must be a bench warrant issued for his arrest d/t missing a DUI court date a few weeks back. He slept better, but asked for PRN Benadryl instead of PRN Melatonin. Thought processwas linear. No overt paranoia. Reported +AH last edil. [facility] is supporting petition for commitment. 07/23: He is frustrated w not being able to access an opioid or Voltaren for his chronic pain. He has no insight into risk / benefit considerations. He is resistant to any treatment that takes more effort than popping a pill. He reluctantly agreed to a pain medicine consult. He was noted to be diaphoretic, but has not been scoring high enough on CIWA to warrant PRN BZD. He talked at length about his oldest son's by hanging and about how he has struggled in the aftermath and has failed to adequately support his second son over the years. His second son has attempted suicide numerous timesand is currently in [facility] tx. He added, I must before him. The pt talked about his hinduism bel iefs, about not believing in suicide, but having come to the conclusion that even someone who does not believe in suicide can get to the point of attempting suicide. He denied thoughts of self harm, SI, HI, and VH. He reported +AH and +tactile hallucinations >> hypnagogic-like. Affect was anxious, tense, and irritable. 07/24: No diaphoresis today. Using PRNs for sleep. Denied further AH, VH, or tactile hallucinations.(However, his report of hallucinations varies from person to person.) Agreeable to med trials for various concerns, but tends to want to immediately jump to large doses. Anxious, intense at times, and restless. Thought process is largely linear. Denied SI / HI. He mentioned this hospitalization as the 4th time he's been in the ICU in as many months. 07/25: More elevated, animated, intense, and irritable. Continues restless. Med seeking - more of (to include opioids, BZD, and now stimulants, but also other more benign meds) - and wanting to go straight to high doses. He is a very inconsistent historian w details changing from day to day, person to person. Memory impairment is noted. He noted that he did not trash his kidneys as badly prior to this admission as compared to his other 3 recent admissions. He minimized the significance of his past renal injury and dismissed the warnings he has received by healthcare professionals re the risks to his vital organs. He called them over-dramatic. Denied AH / SI. +Paranoia re demons? Hyper-verbal. DIAGNOSES & PLAN Principal Psychiatric / Substance Use Diagnoses: - encephalopathy s/p ingestion: improved - bipolar disorder w psychosis vs SCAD by hx - r/o substance induced psychosis - alcohol use disorder, severe - methamphetamine use disorder, severe - BZD use disorder, severe - alcohol / BZD withdrawal Medical Concerns to be addressed: - USAMA: resolved - ?element of CKD? - mild rhabdomyolysis: improved - chronic back pain: see Medicine consult - HTN: restarted [employer] medications - GERD: restarted PPI - HLD: restarted statin - LUTS: flomax - Patient with moderate malnutrition in the context of social/environmental circumstances during hospital stay and remains with moderate malnutrition in the context of social/environmental circumstances. Patient requiring additional resources due to degree of malnutrition during hospital stay. Dietitian following with the following nutrition therapy plan: 1.) Boost TID 2.) Encourage oral intakes Medication Ordered/Consults/Labs/Tests Ordered: 07/18: Delirium precautions ordered. Seroquel ordered 100 mg QHS and 50 mg q4PRN. Zyprexa 5 PO mg vs10 mg IV - TID PRN if needed. UDS ordered. Will order high dosed Thiamine. Will order addiction consult. Gabapentin 300 mg TID ordered for withdrawal symptoms. 07/19: Increase quetiapine to 100mg TID. [employer] dose was 800mg qHS. UDS+ for amphetamines. 07/20: Will give Seroquel 200mg at bedtime this edil then combine doses / change dose to 400mg po qhs. Will titrate to [employer] dose of 800mg po qhs as tolerated / indicated. Hold Lexapro for now. He has not been consistently taking it. Increase Neurontin to 600mg po TID. Offer Zyprexa 10mg po BID PRN. Continue CIWA protocol w PRN Valium and PRN Clonidine. 07/21: Lidocaine patch daily. Medicine consult if [facility] is issued. 07/22: Medicine consult for chronic back pain management. Increase Seroquel to 500mg po qhs. D/c PRNMelatonin and replace w PRN Benadryl. 07/23: Increase Seroquel to 600mg po qhs. Per his request, change Flexeril 10mg from TID PRN to TID.Will avoid Requip for RLS as it could worsen his DC sxs. Instead, will increase Neurontin to 900mg po TID. Spiritual care consult ordered. 07/24: Advance Seroquel to 700mg po qhs. Add Trazodone 50mg po qhs + 50mg po qhs PRN. Changed Benadryl to PRN itching only as this could worsen RLS, if that is truly what he has. Will discuss the possibility of akathisia (vs RLS) tomorrow. 07/25: Increase Seroquel to his [employer] dose of 800mg po qhs. Add a 2nd Lidocaine patch. Maximize daily APAP dose by allowing a daily PRN dose to his TID scheduled APAP. Pain Management consult placed. Trial Cogentin 1mg po BID for possible akathisia. D/c PRN Benadryl as he has Trazodone available. D/c CIWA. Milieu Management: Admit to: NE4 Legal: >> [facility] (prelim 07/29) Acuity level: Red (caution - at risk, monitored for safety) Encouraged the patient to participate in unit activities. Level of Observation: No additional monitoring needed RE-CERTIFICATION & RISK ASSESSMENT The patient continues to need, on a daily basis, active inpatient psychiatric treatment for ongoingdiagnostic assessment and treatment of the following symptoms: AH, paranoia, substance withdrawal, and possible SI w possible SA prior to admission. The treatment can reasonably be expected to improve the patient's condition. Estimated length of stay is 14 days. Anticipated disposition: home vs care home vs [facility] tx Risk Assessment: assault: Medium - paranoid Suicide Risk: No Acute Risk Patient Strengths: willing to take medications Kristin Rutledge PA-C * Kristin Rutledge PA-C - 07/25/2023 2:43 PM CDT [facility] Psychiatry Progress Note PATIENT NAME: Nicanor Alvarado DATE OF SERVICE: 07/25/2023 ATTENDING PRACTITIONER: Kristin Rutledge PA-C HOSPITAL DAY # 5 CHIEF COMPLAINT subsequent inpatient psychiatric encounter INTERVAL HISTORY Nicanor Alvarado was seen in f/u by web content writer. When asked about ongoing diaphoresis, he reported having some hot flashes today. He said he took a PRN of Benadryl last night when being unable to sleepb/c of an episode of intense itching. He denied rash, and the episode resolved after taking the Benadryl. He said he also added some PRN Zyprexa for sleep. Thereafter, he slept well until morning. Denied AH, VH, or tactile hallucinations. He said he sometimes hears his own thoughts telling him to get your shit together. He mentioned this hospitalization as the 4th time he's been in the ICU in as many months. We discussed his possible RLS and the fact that Benadryl can actually worsen it. He agreed to try Trazodone for sleep, but wanted a dose of 400mg, insisting that is what he is usually rx'd. (He has taken Trazodone 200mg po BID previously.) However, he insisted on keeping some BenadrylPRN should he experience another episode of pruritus. REVIEW OF SYSTEMS Constitutional: did not endorse physical health concerns aside from as discussed above + chronic back pain Psychiatric: denied thoughts of self harm, SI, HI, AH, VH, and/or paranoia Medication side effects: none endorsed CHART REVIEW & MULTIDISCIPLINARY TEAM MEETING Met with the multidisciplinary treatment team and discussed care and treatment planning. RN Report: Subjective: I'm good they scheduled the flexeril so I don't have to ask for it I want buy sodacan I use my money to do that? Objective: Pt visible on the unit watching TV and kept to himself. Behaviorally controlled and med complaint. Patient endorses auditory hallucinations, denies visual hallucinations. Calm and cooperative. CIWA 2 and 1. Denied pain. No aggressive behavior. SW Report: reviewed and discussed Group attendance and participation: 03/10 OT PRN medications: reviewed MAR OBJECTIVE Hours of Sleep: Patient Vitals for the past 72 hrs: Sleep Hours 07/26/23 0634 7.8 HOURS 07/25/23 2253 2 HOURS 07/25/23 1446 1.3 HOURS 07/25/23 0636 7.3 HOURS 07/24/23 2212 1 HOURS 07/24/23 1515 0 HOURS 07/24/23 0641 7.5 HOURS 07/23/23 2229 1 HOURS 07/23/23 1430 1.3 HOURS LABS: No results found for this or any previous visit (from the past 24 hour(s)). Current Facility-Administered Medications Medication Dose Route Frequency acetaminophen (TYLENOL) tablet 1,000 mg 1,000 mg Oral TID amLODIPine (NORVASC) tablet 5 mg 5 mg Oral Daily aspirin chewable tablet 81 mg 81 mg Oral Daily atorvastatin (LIPITOR) tablet 20 mg 20 mg Oral Evening senna (SENOKOT) tablet 2 [...] tablet 10 mg 10 mg Oral TID diazePAM (VALIUM) tablet 5-10 mg 5-10 mg Oral Q30MIN PRN diclofenac (VOLTAREN) gel 2 g 2 g Topical QID PRN diphenhydrAMINE (BENADRYL) capsule 50 mg 50 mg Oral At bedtime PRN folic acid tablet 1 mg 1 mg Oral Daily gabapentin (NEURONTIN) capsule 900 mg 900 mg Oral TID lidocaine (ASPERCREAM) 4 % patch 1 Patch 1 Patch Transdermal Daily lidocaine (XYLOCAINE) 5 % ointment Topical TID PRN metoprolol succinate (TOPROL XL) extended release tablet 25 mg 25 mg Oral Daily nicotine (COMMIT) lozenge 2 mg 2 mg Oral Q1H PRN Or nicotine (NICORETTE) gum 2 mg 2 mg Oral Q1H PRN OLANZapine (ZyPREXA ZYDIS) disintegrating tablet 10 mg 10 mg Oral BID PRN pantoprazole DR (PROTONIX) tablet 40 mg 40 mg Oral Daily at 6 am QUEtiapine (SEROquel) tablet 700 mg 700 mg Oral At Bedtime tamsulosin (FLOMAX) capsule 0.4 mg 0.4 mg Oral Daily after a meal thiamine (VITAMIN B-1) tablet 100 mg 100 mg Oral Daily traZODone (DESYREL) tablet 50 mg 50 mg Oral At Bedtime traZODone (DESYREL) tablet 50 mg 50 mg Oral At bedtime PRN Food intake: Amount of Diet Consumed (last 3 days) Date/Time Intake (%) 07/25/23 1700 100%;Dinner 07/25/23 1200 100%;Lunch 07/25/23 0807 100%;Breakfast 07/24/23 1200 100%;Lunch 07/24/23 0838 100%;Breakfast 07/23/23 1700 100%;Dinner 07/23/23 1200 100%;Lunch 07/23/23 0800 100%;Breakfast ALLERGY No Known Allergies MENTAL STATUS EXAM Filed Vitals: 07/25/23 0807 07/25/23 0851 07/25/23 1200 07/25/23 1613 BP: (!) 152/88 120/80 137/76 Pulse: 96 82 93 Resp: 16 17 Temp: 98.4 ??F (36.9 ??C) 98.6 ??F (37 ??C) TempSrc: Skin Skin SpO2: 100% 96% Weight: 86.4 kg (190 lb 6.4 oz) Height: Appearance: alert, improved eye contact, wearing scrubs, adequate grooming, appears older than stated age Behavior: engaged, needy Motor: restless Gait and Station: unimpaired Speech: normal in rate and volume, hyper-verbal Language: intact Thought process: largely linear Thought content: denied thoughts of self harm, SI, HI, AH, and/or VH; no overt paranoia / delusional content offered Associations: grossly intact Mood: frustrated, anxious Affect: anxious, intense at times, less irritable Orientation: grossly oriented Attention: intact Memory: impaired Insight: poor Judgment: poor CONSULTATION [facility], 07/24/23: Assessment / Recommendations Follow up on labs show creat 0.96, returned to normal range and resolved USAMA. K is 5.1 but sample hemolyzed. med consulted on 07/23/23 because of chronic back/neck/shoulder pain. To me, pt reports chronic low back, B/L hip, and shoulder pain. Frustrated that doctors will not prescribe him opioids, and that they recommend against diclofenac due to kidney issues. 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 In several studies, NSAIDshave shown to further increase the risk for thrombotic CV events as well as bleeding events. He is on ASA and addition of NSAID will increase risk of GI bleeding, as well. No current red flag symptoms for neck/back/shoulder pain, actually appears more controlled than previously per patient's report/chart review. Plan: - gabapentin has been helpful - continue 600 mg TID - lidocaine patch lower back has been helpful - continue daily; also offer additional lidocaine patch for neck or shoulder pain if pt desires - tylenol 650 mg prn changed to 1000 mg TID scheduled - diclofenac gel ordered instead to use topically as less systemic absorption - Given patient's chronic difficult to control pain and his h/o of self medicating with meds he buys off internet, I do think it is important to find a pain regimen that will control pt's chronic pain in a meaningful way so that he is less likely to use the internet to buy pills that are not prescribed to him - given it is the weekend, pain team is not available, but would consider primary team consult them and/or send OP referral to pain clinic for patient at hospital discharge. Pain team was consulted during a previous admission in May 2023, but he was not interested in any options other than opioids at that time. He did not ask me about opioids during our visit, so I believe he may nowbe open to more options, perhaps even intraarticular injections for shoulder/hip/back pain. med will sign off. Please reach out with any questions/concerns. ARLET Landeros Nicanor Alvarado is a 57 y.o. male who has been admitted to station [facility] for AH, paranoia, substance withdrawal, and possible [...] his room over the weekend. Admitted to [facility]: 07/20: Restless on exam. Reported +AH and +paranoia (under investigation - which he is starting toquestion as the truth). Less disorganized as compared to when on Medicine. He said he was not really sure about the events [employer]. He drinks alcohol heavily, nearly 3L of [employer]'s rum per week. He has been prescribed Lexapro, but he is not consistent w taking it. Sometimes I need more, referring to self medicating. He used methamphetamine [employer]. He said he has +AH at his baseline, but while using methamphetamine, the +AH escalated and, it got bad. Someone could have . It all seemed so real. He said he began to think that he would be better off if he just used all of the methamph etamine, so he used some IV. His paranoia escalated and he began to feel like someone was going to come through his door, so I ate the rest of the bag b/c I thought I would need the rage and energy to fight them off. Guarded at times. Hesitantly, he denied having SI and he denied the [employer] event asa SA. 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 When initially in the ED, he reported +SI (also while on Medicine) and, when questioned about ingestion, he replied w not enough. Per chart review from the 05/2023 Medicine admission (admitted for erratic driving / legal blood draw, while in the ED he had a syncopal episode and required Medicine admission then transfer to [facility]): He reports that he had about 2 hospitalizations in the past month. One in [facility] (04/24/2022) for acute toxic encephalopathy, drug overdose (cannabinoids, methamphetamine), and alcohol withdrawal w/ delirium tremens which required large amount of benzo. He says he had another hospitalization in [place]. He reports that one of these hospitalizations led to ICU stay and he was told that his kidney were failing, but no detailed records of outside hospital stay are available on admission. 07/21: Restless, argumentative, anxious, irritable, and illogical. He is agreeable to [facility] tx, especially to access psychotherapy, knowing it will likely eventually be court ordered. However, he also stated that he has no intentions of quitting alcohol all together, but only cutting back, b/c of his chronic pain. Additionally, he is unwilling to stay in the hospital beyond his 72h hold, in order tofacilitate a door to door transfer to [facility] tx. He was educated on his risk of relapse and reminded of his recent hospitalizations, related to use / overdosing. Pt was reminded that he himself stated someone could have in relation to the events prior to this admission. He does not see his drinking as a problem, stating, I don't drive. Manager Convention noted that he recently missed a court date for aDUI charge and, last hospitalization here, he was brought here for a legal blood draw after being stopped for erratic driving. When asked about the pill bottles that were scattered around him, when found [employer], he could not give an explanation. Will file a petition for civil commitment. 07/22: Quite tense, irritable, and rude on approach. Said he wants to d/c directly to [facility] he suspects there must be a bench warrant issued for his arrest d/t missing a DUI court date a few weeks back. He slept better, but asked for PRN Benadryl instead of PRN Melatonin. Thought processwas linear. No overt paranoia. Reported +AH last edil. [facility] is supporting petition for commitment. 07/23: He is frustrated w not being able to access an opioid or Voltaren for his chronic pain. He has no insight into risk / benefit considerations. He is resistant to any treatment that takes more effort than popping a pill. He reluctantly agreed to a pain medicine consult. He was noted to be diaphoretic, but has not been scoring high enough on CIWA to warrant PRN BZD. He talked at length about his oldest son's by hanging and about how he has struggled in the aftermath and has failed to adequately support his second son over the years. His second son has attempted suicide numerous timesand is currently in [facility] tx. He added, I must before him. The pt talked about his hinduism bel iefs, about not believing in suicide, but having come to the conclusion that even someone who does not believe in suicide can get to the point of attempting suicide. He denied thoughts of self harm, SI, HI, and VH. He reported +AH and +tactile hallucinations >> hypnagogic-like. Affect was anxious, tense, and irritable. 07/24: No diaphoresis today. Using PRNs for sleep. Denied further AH, VH, or tactile hallucinations.(However, his report of hallucinations varies from person to person.) Agreeable to med trials for various concerns, but tends to want to immediately jump to large doses. Anxious, intense at times, and restless. Thought process is largely linear. Denied SI / HI. He mentioned this hospitalization as the 4th time he's been in the ICU in as many months. DIAGNOSES & PLAN Principal Psychiatric / Substance Use Diagnoses: - encephalopathy s/p ingestion: improved - bipolar disorder w psychosis vs SCAD by hx - r/o substance induced psychosis - alcohol use disorder, severe - methamphetamine use disorder, severe - BZD use disorder, severe - alcohol / BZD withdrawal Medical Concerns to be addressed: - USAMA: resolved - ?element of CKD? - mild rhabdomyolysis: improved - chronic back pain: see Medicine consult - HTN: restarted [employer] medications - GERD: restarted PPI - HLD: restarted statin - LUTS: flomax - Patient with moderate malnutrition in the context of social/environmental circumstances during hospital stay and remains with moderate malnutrition in the context of social/environmental circumstances. Patient requiring additional resources due to degree of malnutrition during hospital stay. Dietitian following with the following nutrition therapy plan: 1.) Boost TID 2.) Encourage oral intakes Medication Ordered/Consults/Labs/Tests Ordered: 07/18: Delirium precautions ordered. Seroquel ordered 100 mg QHS and 50 mg q4PRN. Zyprexa 5 PO mg vs10 mg IV - TID PRN if needed. UDS ordered. Will order high dosed Thiamine. Will order addiction consult. Gabapentin 300 mg TID ordered for withdrawal symptoms. 07/19: Increase quetiapine to 100mg TID. [employer] dose was 800mg qHS. UDS+ for amphetamines. 07/20: Will give Seroquel 200mg at bedtime this edil then combine doses / change dose to 400mg po qhs. Will titrate to [employer] dose of 800mg po qhs as tolerated / indicated. Hold Lexapro for now. He has not been consistently taking it. Increase Neurontin to 600mg po TID. Offer Zyprexa 10mg po BID PRN. Continue CIWA protocol w PRN Valium and PRN Clonidine. 07/21: Lidocaine patch daily. Medicine consult if PC is issued. 07/22: Medicine consult for chronic back pain management. Increase Seroquel to 500mg po qhs. D/c PRNMelatonin and replace w PRN Benadryl. 07/23: Increase Seroquel to 600mg po qhs. Per his request, change Flexeril 10mg from TID PRN to TID.Will avoid Requip for RLS as it could worsen his DC sxs. Instead, will increase Neurontin to 900mg po TID. Spiritual care consult ordered. 07/24: Advance Seroquel to 700mg po qhs. Add Trazodone 50mg po qhs + 50mg po qhs PRN. Changed Benadryl to PRN itching only as this could worsen RLS, if that is truly what he has. Will discuss the possibility of akathisia (vs RLS) tomorrow. Will order Pain Medicine consult on Wednesday if pt agrees. Milieu Management: Admit to: NE4 Legal: >> [facility] Acuity level: Red (caution - at risk, monitored for safety) Encouraged the patient to participate in unit activities. Level of Observation: No additional monitoring needed RE-CERTIFICATION & RISK ASSESSMENT The patient continues to need, on a daily basis, active inpatient psychiatric treatment for ongoingdiagnostic assessment and treatment of the following symptoms: AH, paranoia, substance withdrawal, and possible SI w possible SA prior to admission. The treatment can reasonably be expected to improve the patient's condition. Estimated length of stay is 14 days. Anticipated disposition: home vs care home vs [facility] tx Risk Assessment: assault: Medium - paranoid Suicide Risk: No Acute Risk Patient Strengths: willing to take medications Kristin Rutledge PA-C * Kristin Rutledge PA-C - 07/24/2023 2:26 PM CDT [facility] Psychiatry Progress Note PATIENT NAME: Nicanor Alvarado DATE OF SERVICE: 07/24/2023 ATTENDING PRACTITIONER: Kristin Rutledge PA-C HOSPITAL DAY # 4 CHIEF COMPLAINT subsequent inpatient psychiatric encounter INTERVAL HISTORY Nicanor Alvarado was seen in f/u by web content writer and MD. We discussed the probate court process, time frames, and possible outcomes. He was very focused on his medical issues and getting all [employer] meds prescribed -- flomax, testosterone injections (deferred to outpatient f/u), and requip for possible RLS.He is frustrated w not being able to access an opioid or Voltaren for his chronic pain. He has no insight into risk / benefit considerations. He is resistant to any treatment that takes more effort than popping a pill. He reluctantly agreed to a pain medicine consult. He was noted to be diaphoretic, but has not been scoring high enough on CIWA to warrant PRN BZD. Today he said he drinks ~14 ounces of liquor per day. He talked at length about his oldest son's by hanging and about how he has struggled in the aftermath and has failed to adequately support his second son over the years. Hissecond son has attempted suicide numerous times and is currently in [facility] tx. He added, I must before him. The pt talked about his hinduism beliefs, about not believing in suicide, but having come to the conclusion that even someone who does not believe in suicide can get to the point of attempting suicide. He denied thoughts of self harm, SI, HI, and VH. He reported +AH and +tactile hallucinations, describing vividly hearing and feeling a demon come up from the side of his bed and pulling on his feet as he was about to fall off to sleep. REVIEW OF SYSTEMS Constitutional: did not endorse physical health concerns aside from as discussed above + chronic back pain Psychiatric: denied thoughts of self harm, SI, HI, VH, and/or paranoia; see above Medication side effects: none endorsed CHART REVIEW & MULTIDISCIPLINARY TEAM MEETING Met with the multidisciplinary treatment team and discussed care and treatment planning. RN Report: Subjective: I hear voices when I'm alone in my room I have pain can I have Flexeril? I want benadryl to help me sleep what's the dose of Seroquel Objective: Pt visible on the unit watching TV and kept to himself. Behaviorally controlled and med complaint.PRN flexeril and benadryl given per pt request. Patient endorses auditory hallucinations, denies visual hallucinations. Calm and cooperative. CIWA 0. Denied pain. No aggressive behavior. SW Report: reviewed and discussed Group attendance and participation: 03/10 OT PRN medications: reviewed MAR OBJECTIVE Hours of Sleep: Patient Vitals for the past 72 hrs: Sleep Hours 07/25/23 0636 7.3 HOURS 07/24/23 2212 1 HOURS 07/24/23 1515 0 HOURS 07/24/23 0641 7.5 HOURS 07/23/23 2229 1 HOURS 07/23/23 1430 1.3 HOURS 07/23/23 0630 7 HOURS 07/22/23 2235 2 HOURS 07/22/23 1452 1.3 HOURS LABS: No results found for this or any previous visit (from the past 24 hour(s)). Current Facility-Administered Medications Medication Dose Route Frequency acetaminophen (TYLENOL) tablet 1,000 mg 1,000 mg Oral TID amLODIPine (NORVASC) tablet 5 mg 5 mg Oral Daily aspirin chewable tablet 81 mg 81 mg Oral Daily atorvastatin (LIPITOR) tablet 20 mg 20 mg Oral Evening senna (SENOKOT) tablet 2 [...] tablet 10 mg 10 mg Oral TID diazePAM (VALIUM) tablet 5-10 mg 5-10 mg Oral Q30MIN PRN diclofenac (VOLTAREN) gel 2 g 2 g Topical QID PRN diphenhydrAMINE (BENADRYL) capsule 50 mg 50 mg Oral At Bedtime PRN may repeat x1 folic acid tablet 1 mg 1 mg Oral Daily gabapentin (NEURONTIN) capsule 900 mg 900 mg Oral TID lidocaine (ASPERCREAM) 4 % patch 1 Patch 1 Patch Transdermal Daily lidocaine (XYLOCAINE) 5 % ointment Topical TID PRN metoprolol succinate (TOPROL XL) extended release tablet 25 mg 25 mg Oral Daily nicotine (COMMIT) lozenge 2 mg 2 mg Oral Q1H PRN Or nicotine (NICORETTE) gum 2 mg 2 mg Oral Q1H PRN OLANZapine (ZyPREXA ZYDIS) disintegrating tablet 10 mg 10 mg Oral BID PRN pantoprazole DR (PROTONIX) tablet 40 mg 40 mg Oral Daily at 6 am QUEtiapine (SEROquel) tablet 600 mg 600 mg Oral At Bedtime tamsulosin (FLOMAX) capsule 0.4 mg 0.4 mg Oral Daily after a meal thiamine (VITAMIN B-1) tablet 100 mg 100 mg Oral Daily Food intake: Amount of Diet Consumed (last 3 days) Date/Time Intake (%) 07/24/23 1200 100%;Lunch 07/24/23 0838 100%;Breakfast 07/23/23 1700 100%;Dinner 07/23/23 1200 100%;Lunch 07/23/23 0800 100%;Breakfast 07/22/23 1727 100%;Dinner 07/22/23 1200 100%;Lunch 07/22/23 0800 100%;Breakfast ALLERGY No Known Allergies MENTAL STATUS EXAM Filed Vitals: 07/23/23 1900 07/24/23 0800 07/24/23 0839 07/24/23 1641 BP: 127/82 131/85 (!) 149/85 (!) 135/93 Pulse: 82 87 Resp: 15 16 Temp: 97.7 ??F (36.5 ??C) 98.3 ??F (36.8 ??C) TempSrc: Oral Skin SpO2: 97% 99% Weight: Height: Appearance: alert, intermittent eye contact, wearing scrubs, less disheveled, appears older than stated age, diaphoretic Behavior: engaged, needy Motor: restless feet Gait and Station: unimpaired Speech: normal in rate and volume, hyper-verbal Language: intact Thought process: largely linear Thought content: denied thoughts of self harm, SI, HI, and/or VH; no overt paranoia / delusional content offered; +AH and +tactile hallucinations -- hypnagogic like Associations: grossly intact Mood: worried Affect: anxious, tense, irritable, distressed at times Orientation: grossly oriented Attention: intact Insight: poor Judgment: poor [facility], 07/24/23: Assessment / Recommendations Follow up on labs show creat 0.96, returned to normal range and resolved USAMA. K is 5.1 but sample hemolyzed. med consulted on 07/23/23 because of chronic back/neck/shoulder pain. To me, pt reports chronic low back, B/L hip, and shoulder pain. Frustrated that doctors will not prescribe him opioids, and that they recommend against diclofenac due to kidney issues. 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 Although from a kidney perspective it may be safe to use NSAIDs, danny for an acute/short term need,I still do not believe this is the best nursing home medication for this patient for pain control moreso because of his cardiac risks with longstanding HLD, HTN, age, gender. In several studies, NSAIDshave shown to further increase the risk for thrombotic CV events as well as bleeding events. He is on ASA and addition of NSAID will increase risk of GI bleeding, as well. No current red flag symptoms for neck/back/shoulder pain, actually appears more controlled than previously per patient's report/chart review. Plan: - gabapentin has been helpful - continue 600 mg TID - lidocaine patch lower back has been helpful - continue daily; also offer additional lidocaine patch for neck or shoulder pain if pt desires - tylenol 650 mg prn changed to 1000 mg TID scheduled - diclofenac gel ordered instead to use topically as less systemic absorption - Given patient's chronic difficult to control pain and his h/o of self medicating with meds he buys off internet, I do think it is important to find a pain regimen that will control pt's chronic pain in a meaningful way so that he is less likely to use the internet to buy pills that are not prescribed to him - given it is the weekend, pain team is not available, but would consider primary team consult them and/or send OP referral to pain clinic for patient at hospital discharge. Pain team was consulted during a previous admission in May 2023, but he was not interested in any options other than opioids at that time. He did not ask me about opioids during our visit, so I believe he may nowbe open to more options, perhaps even intraarticular injections for shoulder/hip/back pain. med will sign off. Please reach out with any questions/concerns. ARLET Landeros Nicanor Alvarado is a 57 y.o. male who has been admitted to station [facility] for AH, paranoia, substance withdrawal, and possible [...] his room over the weekend. Admitted to [facility]: 07/20: Restless on exam. Reported +AH and +paranoia (under investigation - which he is starting toquestion as the truth). Less disorganized as compared to when on Medicine. He said he was not really sure about the events [employer]. He drinks alcohol heavily, nearly 3L of [employer] rum per week. He has been prescribed Lexapro, but he is not consistent w taking it. Sometimes I need more, referring to self medicating. He used methamphetamine [employer]. He said he has +AH at his baseline, but while using methamphetamine, the +AH escalated and, it got bad. Someone could have . It all seemed so real. He said he began to think that he would be better off if he just used all of the methamph etamine, so he used some IV. His paranoia escalated and he began to feel like someone was going to come through his door, so I ate the rest of the bag b/c I thought I would need the rage and energy to fight them off. Guarded at times. Hesitantly, he denied having SI and he denied the [employer] event asa SA. 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 When initially in the ED, he reported +SI (also while on Medicine) and, when questioned about ingestion, he replied w not enough. Per chart review from the 05/2023 Medicine admission (admitted for erratic driving / legal blood draw, while in the ED he had a syncopal episode and required Medicine admission then transfer to [facility]): He reports that he had about 2 hospitalizations in the past month. One in [facility] (04/24/2022) for acute toxic encephalopathy, drug overdose (cannabinoids, methamphetamine), and alcohol withdrawal w/ delirium tremens which required large amount of benzo. He says he had another hospitalization in [place]. He reports that one of these hospitalizations led to ICU stay and he was told that his kidney were failing, but no detailed records of outside hospital stay are available on admission. 07/21: Restless, argumentative, anxious, irritable, and illogical. He is agreeable to [facility] tx, especially to access psychotherapy, knowing it will likely eventually be court ordered. However, he also stated that he has no intentions of quitting alcohol all together, but only cutting back, b/c of his chronic pain. Additionally, he is unwilling to stay in the hospital beyond his 72h hold, in order tofacilitate a door to door transfer to [facility] tx. He was educated on his risk of relapse and reminded of his recent hospitalizations, related to use / overdosing. Pt was reminded that he himself stated someone could have in relation to the events prior to this admission. He does not see his drinking as a problem, stating, I don't drive. Manager Convention noted that he recently missed a court date for aDUI charge and, last hospitalization here, he was brought here for a legal blood draw after being stopped for erratic driving. When asked about the pill bottles that were scattered around him, when found [employer], he could not give an explanation. Will file a petition for civil commitment. 07/22: Quite tense, irritable, and rude on approach. Said he wants to d/c directly to [facility] he suspects there must be a bench warrant issued for his arrest d/t missing a DUI court date a few weeks back. He slept better, but asked for PRN Benadryl instead of PRN Melatonin. Thought processwas linear. No overt paranoia. Reported +AH last edil. [facility] is supporting petition for commitment. 07/23: He is frustrated w not being able to access an opioid or Voltaren for his chronic pain. He has no insight into risk / benefit considerations. He is resistant to any treatment that takes more effort than popping a pill. He reluctantly agreed to a pain medicine consult. He was noted to be diaphoretic, but has not been scoring high enough on CIWA to warrant PRN BZD. He talked at length about his oldest son's by hanging and about how he has struggled in the aftermath and has failed to adequately support his second son over the years. His second son has attempted suicide numerous timesand is currently in [facility] tx. He added, I must before him. The pt talked about his hinduism bel iefs, about not believing in suicide, but having come to the conclusion that even someone who does not believe in suicide can get to the point of attempting suicide. He denied thoughts of self harm, SI, HI, and VH. He reported +AH and +tactile hallucinations >> hypnagogic-like. Affect was anxious, tense, and irritable. DIAGNOSES & PLAN Principal Psychiatric / Substance Use Diagnoses: - encephalopathy s/p ingestion: improved - bipolar disorder w psychosis vs SCAD by hx - r/o substance induced psychosis - alcohol use disorder, severe - methamphetamine use disorder, severe - BZD use disorder, severe - alcohol / BZD withdrawal Medical Concerns to be addressed: - USAMA: resolved - ?element of CKD? - mild rhabdomyolysis: improved - chronic back pain: see Medicine consult - HTN: restarted [employer] medications - GERD: restarted PPI - HLD: restarted statin - LUTS: flomax - Patient with moderate malnutrition in the context of social/environmental circumstances during hospital stay and remains with moderate malnutrition in the context of social/environmental circumstances. Patient requiring additional resources due to degree of malnutrition during hospital stay. Dietitian following with the following nutrition therapy plan: 1.) Boost TID 2.) Encourage oral intakes Medication Ordered/Consults/Labs/Tests Ordered: 07/18: Delirium precautions ordered. Seroquel ordered 100 mg QHS and 50 mg q4PRN. Zyprexa 5 PO mg vs10 mg IV - TID PRN if needed. UDS ordered. Will order high dosed Thiamine. Will order addiction consult. Gabapentin 300 mg TID ordered for withdrawal symptoms. 07/19: Increase quetiapine to 100mg TID. [employer] dose was 800mg qHS. UDS+ for amphetamines. 07/20: Will give Seroquel 200mg at bedtime this edil then combine doses / change dose to 400mg po qhs. Will titrate to [employer] dose of 800mg po qhs as tolerated / indicated. Hold Lexapro for now. He has not been consistently taking it. Increase Neurontin to 600mg po TID. Offer Zyprexa 10mg po BID PRN. Continue CIWA protocol w PRN Valium and PRN Clonidine. 07/21: Lidocaine patch daily. Medicine consult if [facility] is issued. 07/22: Medicine consult for chronic back pain management. Increase Seroquel to 500mg po qhs. D/c PRNMelatonin and replace w PRN Benadryl. 07/23: Increase Seroquel to 600mg po qhs. Per his request, change Flexeril 10mg from TID PRN to TID.Will avoid Requip for RLS as it could worsen his DC sxs. Instead, will increase Neurontin to 900mg po TID. Will discuss the possibility of akathisia (vs RLS) tomorrow. Spiritual care consult ordered.Will order Pain Medicine consult on Wednesday if pt agrees. Milieu Management: Admit to: [facility] Legal: >> [facility] Acuity level: Red (caution - at risk, monitored for safety) Encouraged the patient to participate in unit activities. Level of Observation: No additional monitoring needed RE-CERTIFICATION & RISK ASSESSMENT The patient continues to need, on a daily basis, active inpatient psychiatric treatment for ongoingdiagnostic assessment and treatment of the following symptoms: AH, paranoia, substance withdrawal, and possible SI w possible SA prior to admission. The treatment can reasonably be expected to improve the patient's condition. Estimated length of stay is 14 days. Anticipated disposition: home vs care home vs [facility] tx Risk Assessment: assault: Medium - paranoid Suicide Risk: No Acute Risk Patient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 He said he was not really sure about the events [employer]. He said he had 2 children and one of them maybe committed suicide and the other one has tried 8 or 9times. From this, he moved into, I drink a lot, and I have some depression. He reported drinkingnearly 3L of [place] rum per week. He has been prescribed Lexapro, but he is not consistent w taking it. Sometimes I need more, referring to self medicating. He used methamphetamine [employer]. He said he has +AH at his [...] denied having SI and he denied the [employer] event as a SA. He spoke of [...] salts use. -- 2023, had admission to [place] [address] in May, after initially being admitted to Medicine. He was brought in for erratic driving / legal blood draw. While in the ED, he had a syncopal episode and required admission. -- Per chart review from the 05/2023 Medicine admission: He reports that he had about 2 hospitalizations in the past month. One in [facility] (04/24/2022) for acute toxic encephalopathy, drug overdose (cannabinoids, methamphetamine), and alcohol withdrawal w/ delirium tremens which required large amount of benzo. He says he had another hospitalization in [place]. He reports that one of these hospitalizations led to ICU stay and he was told that his kidney were failing, but no detailedrecords of outside hospital stay are available on admission. Current Psychiatrist: none Therapist: none ECT (#, date, methods): none Suicide attempts (#, date, methods): perhaps this [employer] overdose Previous Psychiatric Meds: Seroquel, Zyprexa, Depakote, Zoloft, Trazodone, Gabapentin, Lexapro Chemical History Last Use: just [employer] Substance of Choice: Alcohol, Amphetamines, BZD, and [...] Family of Origin: Grew up in a mormon family in [place]. 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 Children: Two children, one in 2016 by suicide. Reason for end of marriage: unclear Living situation: lives with mother currently. Work History: Has worked at [employer] in past. Legal Problems: Yes, multiple DWIs. [...] male who has been admitted to station [facility] for AH, paranoia, substance withdrawal, and possible [...] his room over the weekend. Admitted to [facility]: 07/20: Restless on exam. Reported +AH and +paranoia (under investigation - which he is starting toquestion as the truth). Less disorganized as compared to when on Medicine. He said he was not really sure about the events [employer]. He drinks alcohol heavily, nearly 3L of [place] rum per week. He has been prescribed Lexapro, but he is not consistent w taking it. Sometimes I need more, referring to self medicating. He used methamphetamine [employer]. He said he has +AH at his [...] denied having SI and he denied the [employer] event asa SA. 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 When initially in the ED, he reported +SI (also while on Medicine) and, when questioned about ingestion, he replied w not enough. Per chart review from the 05/2023 Medicine admission (admitted for erratic driving / legal blood draw, while in the ED he had a syncopal episode and required Medicine admission then transfer to [facility]): He reports that he had about 2 hospitalizations in the past month. One in [facility] (04/24/2022) for acute toxic encephalopathy, drug overdose (cannabinoids, methamphetamine), and alcohol withdrawal w/ delirium tremens which required large amount of benzo. He says he had another hospitalization in [place]. He reports that one of these hospitalizations [...] / consider Medicine consult - HTN: restarted [employer] medications - GERD: restarted PPI - HLD: restarted statin Medication Ordered/Consults/Labs/Tests Ordered: 07/18: Delirium precautions ordered. Seroquel ordered 100 mg QHS and 50 mg q4PRN. Zyprexa 5 PO mg vs10 mg IV - TID PRN if needed. UDS ordered. Will order high dosed Thiamine. Will order addiction consult. Gabapentin 300 mg TID ordered for withdrawal symptoms. 07/19: Increase quetiapine to 100mg TID. [employer] dose was 800mg qHS. UDS+ for amphetamines. 07/20: Will give Seroquel 200mg at bedtime this edil then combine doses / change dose to 400mg po qhs. Will titrate to [employer] dose of 800mg po qhs as tolerated [...] is 3-14 days. Anticipated disposition: home vs care home vs [facility] tx Risk Assessment: assault: Medium [...] Routine Methamphetamine use disorder, severe, dependence (HRC) Alcohol use disorder, severe, dependence (HRC) Sedative, hypnotic or anxiolytic use disorder, severe, dependence (HRC) Ordered: 08/06/2023 Addiction Medicine Consult - Adult Referral Routine Alcohol use disorder, severe, dependence (HRC) Ordered: 08/09/2023 Establish Primary Care Referral Routine Methamphetamine use disorder, severe, dependence (HRC) Ordered: 08/18/2023 Behavioral Health Referral Routine Methamphetamine use disorder, severe, dependence (HRC) Ordered: 08/19/2023 documented as of this encounter Procedures Procedure [...] METABOLIC PANEL Routine 07/23/2023 5:13 PM CDT documented in this encounter Results * (ABNORMAL) Basic Metabolic Panel (08/12/2023 8:13 AM CDT) Pathologist [facility] Sodium 138 136 - 145 mmol/L 08/12/2023 9:20 AM [facility] Potassium 4.3 3.5 - 5.1 mmol/L 08/12/2023 9:20 AM [facility] Comment:Specimen slightly he molyzed. Hemolysis may affect result. Chloride 103 98 - 109 mmol/L 08/12/2023 9:20 AM [facility] CO2 24 20 - 29 mmol/L 08/12/2023 9:20 AM [facility] Anion Gap 11 6 - 16 mmol/L 08/12/2023 9:20 AM [facility] Calcium 10.1 8.4 - 10.4 mg/dL 08/12/2023 9:20 AM [facility] BUN 19 7 - 26 mg/dL 08/12/2023 9:20 AM [facility] Creatinine 1.19(H) 0.73 - 1.18 mg/dL 08/12/2023 9:20 AM [facility] Glucose 105(H) 70 - 100 mg/dL 08/12/2023 9:20 AM [facility] Comment:The given reference range is for the fasting state. Non-fasting reference range for glucose is 70 - 180 mg/dL. GFR, Estimated >60 >60 mL/min/1.7 3m2 08/12/2023 9:20 [facility] Blood Venipuncture / Unknown 08/12/2023 8:13 AM CDT 08/12/2023 8:49 AM CDT Kristin Rutledge PA-C LAB_1 Performing Organization Address [facility]/ZIP Co de Phone Number [address] * Extra Lavender top tube (08/12/2023 8:10 AM CDT) Extra Lavender Top Drawn Specimen will be held for 3 days 08/12/2023 10:00 AM CDT [facility] Blood Venipuncture / Unknown 08/12/2023 8:10 AM CDT 08/12/2023 8:50 AM CDT Cristo Lozano MD LAB_1 Performing Organization Address [facility] Co de Phone Number [address] * Extra Lavender top tube (08/09/2023 8:37 AM CDT) Extra Lavender Top Drawn Specimen will be held for 3 days 08/09/2023 10:00 AM T [facility] Blood Venipuncture / Unknown 08/09/2023 8:37 AM CDT 08/09/2023 8:57 AM CDT Cristo Lozano MD LAB_1 Performing Organization Address [facility] Co de Phone Number [address] * (ABNORMAL) Basic Metabolic Panel (08/09/2023 8:36 AM CDT) Sodium 139 136 - 145 mmol/L 08/09/2023 9:42 AM CDT [facility] Potassium 4.6 3.5 - 5.1 mmol/L 08/09/2023 9:42 AM T [facility] Comment:Specimen slightly he molyzed. Hemolysis may affect result. Chloride 103 98 - 109 mmol/L 08/09/2023 9:42 AM [facility] CO2 28 20 - 29 mmol/L 08/09/2023 9:42 AM [facility] Anion Gap 8 6 - 16 mmol/L 08/09/2023 9:42 AM T [facility] Calcium 9.9 8.4 - 10.4 mg/dL 08/09/2023 9:42 AM [facility] BUN 16 7 - 26 mg/dL 08/09/2023 9:42 AM [facility] Creatinine 1.24(H) 0.73 - 1.18 mg/dL 08/09/2023 9:42 AM [facility] Glucose 102(H) 70 - 100 mg/dL 08/09/2023 9:42 AM [facility] Comment:The given reference range is for the fasting state. Non-fasting reference range for glucose is 70 - 180 mg/dL. GFR, Estimated >60 >60 mL/min/1.7 3m2 08/09/2023 9:42 AM [facility] Blood Venipuncture / Unknown 08/09/2023 8:36 AM CDT 08/09/2023 8:56 AM CDT Charlene Lee APRN, JENNY LAB_1 Performing Organization Address [facility] Co de Phone Number [address] * ECG 12-Lead Routine (Lab perform) (08/03/2023 8:20 AM CDT) EKG Completed 08/03/2023 11:00 AM [facility] Other Specimen Type Non-blood Collection / Unknown 08/03/2023 8:20 AM CDT 08/03/2023 9:05 AM CDT Jaden Wetzel PA-C LAB_1 Performing Organization Address [facility] Co de Phone Number [address] * (ABNORMAL) Basic Metabolic Panel (07/23/2023 5:13 PM CDT) Sodium 136 136 - 145 mmol/L 07/23/2023 5:39 PM [facility] Potassium 5.1 3.5 - 5.1 mmol/L 07/23/2023 5:39 PM [facility] Comment:Specimen slightly he molyzed. Hemolysis may affect result. Chloride 108 98 - 109 mmol/L 07/23/2023 5:39 PM [facility] CO2 16(L) 20 - 29 mmol/L 07/23/2023 5:39 PM [facility] Anion Gap 12 6 - 16 mmol/L 07/23/2023 5:39 PM CDT [facility] Calcium 9.8 8.4 - 10.4 mg/dL 07/23/2023 5:39 PM [facility] BUN 17 7 - 26 mg/dL 07/23/2023 5:39 PM T [facility] Creatinine 0.96 0.73 - 1.18 mg/dL 07/23/2023 5:39 PM [facility] Glucose 98 70 - 100 mg/dL 07/23/2023 5:39 PM [facility] Comment:The given reference range is for the fasting state. Non-fasting reference range for glucose is 70 - 180 mg/dL. 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 Discharge Date: 08/23/2023 Discharge Time: 1:36 PM Patient accompanied by: self . Transported [...] required) No Patients general condition on discharge: Cooperative and with all discharge belongings All medical devices (telemetry/IV/etc) unless otherwise ordered, have been removed and stored: N/A --- End of Report --- * Plan of Care - Mora Leo MSW, INDUSTRIAL MACHINE SYSTEM TECHNICIAN - 08/23/2023 12:33 PM CDT [facility] Social Work Discharge Note Admission Date/Time: 07/20/2023 3:13 PM Attending Practitioner: Jaden Wetzel PA-C County: [place] Insurance: [facility] Secondary Insurance: N/A Disposition: Home Address: [address] [place] [address] Expected Discharge Date/Time: 08/23/2023 14:00 Legal Status at Discharge: Voluntary per SOC SOC [facility] Transportation Arrangements: Transportation Provided By: Taxi Discharge Collateral Contact: Collateral Contacts: Grading Clerk Release of Information?: Yes (per SOC) Grading Clerk Name : Briseida Gupta Grading Clerk Grading Clerk Fax/Email: Briseida Gupta <[email or web address] Release of Information?: Yes (verbal) Family/Friend Contact Name: Catalina Alvarado -Mothers Family/Friend Contact or [phone] Other Contact Name : Salvatore Alvarado - Son Other Contact YASMEEN Services: YASMEEN assessment and Resources provided Discharge Safety Risk Assessed: Yes;Patient denied suicidal or homicidal ideations at discharge. SW reviewed safety plan and discussed crisis resources. Patient is at risk for rehospitalization if discharge plan is not followed. Discharge Summary: Manager Convention put call to pt's Briseida CARABALLO first thing this morning to connect on d/c meeting. Manager Convention also spoke with Lexii LEIVA CM, who understands limitations of pt's insurance. Manager Convention shared pt had planned to connect with his associate attorney this morning however was already saying what his associate attorney would share would not make a difference and he needs to get back to his 89 y/o mother's farm to help out. Lexii asked f hospital could make referral to [facility] OP program located [facility]. Manager Convention received call from Pattie with [employer] ([phone]) who shared she and her counterpart, Thelma ([phone]) are covering for pt's CD Briseida CARABALLO and will be contacts for today. Manager Convention shared pt appropriate for d/c and web content writer to make referral to [facility] who have OP YASMEEN programming andmay be able to work with pt's insurance. Pt signed DORA for [facility]. Manager Convention put out call to [facility] [phone] and connected with community service coordinator, Giovanni Myers [phone]. Giovanni shared they would be able to provide services in some capacity to pt with Medicare only. Manager Convention reviewed need for him to follow up further with pt's OP team and relayed plans to CC team. Referral sent to Giovanni @ [facility] Finders: < > Thelma Akbar < >; Pattie Chirinos <[email or web address]>; Briseida Gupta <[email or web address]>; Lexii Mclain <[email or web address]> Manager Convention provided Lexii with contact for [place] at her request. Manager Convention met with pt on the unit who shared he refuses to complete MA amanda at this time as he does nottrust CM. Pt accepting of AA resources. Manager Convention put out call to pt's mother Catalina, who shared she is home all day and agrees with dc home today. Discharge Plan: Date/Time: 08/22 @ 1330 Location: [address] [place] [address] Transport: taxi NE Entrance will call unit upon arrival Medications: 2 week supply Injection/Clozaril: n/a Appts: WednesdayAugust 29 @ 11:00am [email or web address] [facility]: Star Blanton DNP, SUTURE POLISHER, PMHNP-BC [address] [place] [address] ?? [phone] -[facility] APPOINTMENT Date: August Time: 1:15pm Provider: Dr. Antoine Dhillon [facility] [address] [place] [address] Packet: Discharge Summary, Transfer Orders *Referral made to [facility] *AA mtg list printed See AVS for follow up. Electronically signed by Mora Leo, FORMING AND ASSEMBLING SUPERVISOR, INDUSTRIAL MACHINE SYSTEM TECHNICIAN at 08/23/2023 1:46 PM CDT * Plan of Care - Anca Finney RN - 08/23/2023 10:45 AM CDT [facility] Plan of Care Note Assessment: General plan of care Plan: Will maintain safety and follow plan of care Subjective: My water system operator is supposed to call me and then they'll tell me what time I leave at Objective: Denies SI, AH or VH. Rates pain in lower back at 7?10 with relief from current medication regimen and PRN Robaxin. Met with pt in dayroom. Pt watching TV and socializing with peers, went to groups. Restricted affect, pleasant mood. BP recheck was 151/90 Vitals: 08/23/23 0812 BP: (!) 169/88 Pulse: 84 Resp: 18 Temp: 97.9 ??F (36.6 ??C) Safety status: Close observation. Reports medication regimen is effective, denies any SE's or interactions. Compliant with medications and assessments. Reviewed all DC instructions and med list. Pt verbalized understanding of all teaching --- End of Report --- * Plan of Care - Kelin Quintero, OTR/L - 08/23/2023 7:19 AM CDT [facility] Occupational Therapy Plan of Care Note Group Name Attendance Minutes Topic Movement/Exercise Absent/Refusal Activity Room/Group Life Skills/IM&R Excused Discharged Clinic Absent/Refusal Daily Group Total: 0 OT Evaluation Minutes: Evaluation: All OT Evaluations are found under Consults - OT Notes. Group Daily Assessment Sensory Items/Activities Offered: Grooming: Affect: Cognitive/Tracking: Social Skills: Work Skills: Investment/Participation: Comments: 1:1 OT Assessment Minutes: 15 Topic: Grooming Comments: Sensory Assessment According to current staff [...] Assessment Patient Reported Strengths: Patient's Curriculum Track Boosting Mood & Energy Patient's Recovery Goals Patient's Recovery Goals: Unable Patient's Personal Recovery Goal: To find a psychologist that knows more about schizophrenia First Short Term Goal Related to Achieving Personal Goal: Find support groups Goal Status: Set Step 1 in Achieving Goals: Find meds that help with the voices. Step 1 Goal Status: Set Patient's Goals OT Treatment Goals 1. Assess [...] and/or Movement/Exercise. * Plan of Care - Caridad Neves RN - 08/23/2023 4:28 AM CDT Assessment: Sleep Plan: Patient will sleep for more than 5 hours Subjective: N/A Objective: Patient appeared to have slept for more than 5 hours with no incident. 15 minutes security checks ongoing, breathing nonlabored. Patient received Methocarbamol, Zyprexa and Benadryl at 0121. Tylenol given at 0330. * Plan of Care - Kortney Greenfield RN - 08/22/2023 10:40 PM CDT Problem: Mood Impairment (Psychotic Signs/Symptoms) Goal: Improved Mood Symptoms (Psychotic Signs/Symptoms) [facility] Plan of Care Note Assessment: Mood Plan: Encourage Pt to verbalize feelings and assess mood Subjective: It is father's day, I talk to my son and he is upset that the mother of his daughter did not allow him to see and I am not happy. Denies psych symptoms. Objective: Pt was watching TV and social with peers. Early in the shift Pt was sad with what happened to his son, see above note. But for the rest of the shift Pt was pleasant and social with peers. Pt is hoping to be discharged tomorrow. Compliant with medication. Neck and back pain had relief with scheduled Tylenol and Voltaren cream. --- End of Report --- * Plan of Care - Melissa Ryan RN - 08/22/2023 10:16 AM CDT Problem: Adult Behavioral Health Plan of Care Goal: Plan of Care Review Outcome: Progressing Goal: Absence of New-Onset Illness or Injury Outcome: Progressing Goal: Optimized Coping Skills in Response to Life Stressors Outcome: Progressing [facility] Plan of Care Note Assessment: General Plan of Care Plan: Pt to follow plan of care Subjective: Today is Father's Day, I hope they have something nice for us Objective: Pt is stable, controlled and cooperative. Continues to be preoccupied with ongoing chronic pain, tolerable with scheduled and PRN meds. Pt denied any suicidal or homicidal ideations, hallucinations, thoughts of harming self or others. Pt is visible in the dayroom most, socializes appropriately with select peers, out intermittently to NS to make needs known. Pt participated briefly in group activities, denied any new concerns. BP 134/87 (BP Cuff Size: Large) Pulse 81 Temp 98.2 ??F(36.8 ??C) (Oral) Resp 16 Ht 6' 1 (1.854 m) Comment: per EHR Wt 92.4 kg (203 lb 9.6 oz) SpO2 100% BMI 26.86 kg/m?? MHT reported to RN that pt had c/o peer EC harassing him since he was admitted. Pt had never reported nor complained to RN about this before today. nurse practitioner manager notified pry RNthat pt's concerns has been addressed and also with peer EC. Pt is now on COB. --- End of Report --- * Plan of Care - Caridad Neves RN - 08/22/2023 2:42 AM CDT Assessment: Sleep Plan: Patient will sleep for more than 5 hours Subjective: N/A Objective: Patient appeared to have slept for more than 5 hours with no incident. 15 minutes security checks ongoing, breathing nonlabored. Patient received Methocarbamol, Benadryl and Zyprexa at 0124 per request. * Plan of Care - Kortney Greenfield RN - 08/21/2023 10:36 PM CDT Problem: Mood Impairment (Psychotic Signs/Symptoms) Goal: Improved Mood Symptoms (Psychotic Signs/Symptoms) Outcome: Progressing [facility] Plan of Care Note Assessment: Mood Plan: Encourage Pt to verbalize feelings and assess mood. Subjective: I feel pretty good, I was suppose to leave last Wednesday if everything goes right I am hoping I will leave on Wednesday. Denies psych symptoms. Objective: Pt was watching TV and social with peers. Pt was down to activity room. Pleasant and though process is intact. C/o neck pain and had tolerable relief with schedule Tylenol and PRN Voltarencream. Compliant with medication. --- End of Report --- * Plan of Care - Melissa Ryan RN - 08/21/2023 10:22 AM CDT Problem: Adult Behavioral Health Plan of Care Goal: Plan of Care Review Outcome: Progressing Goal: Absence of New-Onset Illness or Injury Outcome: Progressing Goal: Optimized Coping Skills in Response to Life Stressors Outcome: Progressing [facility] Plan of Care Note Assessment: General Plan of Care. Pain Plan: Follow plan of care. Treat pain Subjective: I will like only the 2 patches for my back, I'll use Aspercreme on my neck and my robaxin Objective: Pt continues to report chronic pain to neck and back, described as hurting all the time from past surgeries, rated at 6-7/10. PRN Robaxin 750 mg requested by pt and given with scheduled AMmeds. Pt tolerated well, reported intervention not so effective, continues to rate pain at 5-6 at f/u. Pt ambulated around the unit intermittently, denied any new concerns. Pt spent rest of shift in the dayroom socializing and watching TV in the dayroom with peers. Pt denied any psych s/sx. Vitals remain stable. BP 131/89 Pulse 78 Temp 97.4 ??F (36.3 ??C) (Skin) Resp 18 Ht 6' 1 (1.854 m)Comment: per EHR Wt 91.5 kg (201 lb 11.2 oz) SpO2 99% BMI 26.61 kg/m?? --- End of Report --- * Plan of Care - Caridad Neves RN - 08/21/2023 2:58 AM CDT Assessment: Sleep Plan: Patient will sleep for more than 5 hours Subjective: N/A Objective: Patient appeared to have slept for more than 5 hours with no incident. 15 minutes security checks ongoing, breathing nonlabored. Patient received Methocarbamol, Olanzapine and Benadryl at 0105. Tylenol at 0413 for 5/10 neck pain. * Plan of Care - Kortney Greenfield RN - 08/20/2023 10:04 PM CDT Problem: Mood Impairment (Psychotic Signs/Symptoms) Goal: Improved Mood Symptoms (Psychotic Signs/Symptoms) Outcome: Progressing [facility] Plan of Care Note Assessment: Mood Plan: Encourage Pt to verbalize feelings and assess mood. Subjective: My mood is good, but I have pain on my (L) shoulder and neck and I need Voltaren. Denies psych symptoms. Objective: Pt was watching TV and social with Peers. Pt was brief and superficial. Pt requested andapplied Voltaren cream for (L) shoulder and neck pain. On recheck reported tolerable relief. Compliant with medication. --- End of Report --- * Plan of Care - Ana Rosa Ledezma RP - 08/20/2023 11:41 AM CDT [facility] Floor Pharmacy Home Medication Review and Destruction ATTN Nursing: The patients home medications have been reviewed by the pharmacist and the following home medications have been destroyed per protocol: Comingled meds in 1 bottle Any questions or concerns please call Outpatient Pharmacy at [phone]. This destruction was authorized by Dr. Margaret Chin. * Plan of Care - Melissa Ryan RN - 08/20/2023 11:40 AM CDT Problem: Adult Behavioral Health Plan of Care Goal: Plan of Care Review Outcome: Progressing Goal: Absence of New-Onset Illness or Injury Outcome: Progressing Goal: Optimized Coping Skills in Response to Life Stressors Outcome: Progressing [facility] Plan of Care Note Assessment: General Plan of Care Plan: Pt to follow plan of care Subjective: Objective: Pt has been A/O, behaviorally controlled and cooperative. Reported sleeping well, been visible mostly in the common areas, socializing appropriately with peers. Pt continues to report ongoing chronic pain to neck and back, rated at 5-6/10, tolerable with around the clock scheduled and PRN pain meds. Denied any SI, HI, AVH, thoughts of harming self or others. PRN Robaxin 750 mg given with scheduled AM meds and somewhat effective per pt. Pt attended group. BP 125/88 Pulse 83 Temp 97.9 ??F (36.6 ??C) (Oral) Resp 16 Ht 6' 1 (1.854 m) Comment: per EHR Wt 91.5 kg (201 lb 11.2 oz) SpO2 98% BMI 26.61 kg/m?? --- End of Report --- * Plan of Care - Mora Leo MSW, INDUSTRIAL MACHINE SYSTEM TECHNICIAN - 08/20/2023 11:39 AM CDT [facility] Social Work Progress Note Data: Pt discussed in team this AM. Phone conference held today at 1030 AM. In attendance was SW, pt, CD commitment CM Briseida, and DC commitment CM Maria M. Manager Convention reviewed hospital's perspective that pt is ready for d/c. janitor helper expressed concern that pt has been unwilling to apply for MA and get into treatment due to spenddown. Cms hoping pt will allow them to at least start the MA process and he will get to choose later on togo through with process or not. Pt wants to have his associate attorney over his commitment weigh in on the conditions of his SOC order and associate attorney is out of the office until Wednesday. janitor helper are not agreeable to d/c today without CD portion of care in place. Pt shares he is willing to go to daily AA meetings. CM do not feel this will be enough to keep pt sober. Manager Convention again advocates pt needs to be given opportunity to succeed or fail in the community and that pt's SOC was a [facility] decision. Manager Convention reviewed there will likely need to be a compromise found as pt cannot stay in the hospital to get on MA, which he is not even agreeable to. Next course of best action appears to be allowing pt's atto rney to weigh in with hopes for d/c Wednesday afternoon once follow up meeting held. Manager Convention LVM for pt's mother, Catalina, indicating pt not d/c today as meeting needs to be held Wednesday.Manager Convention shared plans to call her back when d/c date available. Discharge Plan: Date/Time: TBD Location: [address] [place] [id number] Transport: taxi NE Entrance will call unit upon arrival Medications: 2 week supply Injection/Clozaril: n/a Appts: WednesdayAugust 29 @ 11:00am [email or web address]; to (do) [facility]: Star Blanton, HAM, SUTURE POLISHER, PMHNP-BC [address] [place] [address] ?? [phone] -[facility] APPOINTMENT Date: August Time: 1:15pm Provider: Dr. Antoine Dhillon [facility] [address] [place] [address] Packet: Discharge Summary, Transfer Orders Legal Status: SOC [facility] Collateral Contacts Collateral Contacts: Grading Clerk Release of Information?: Yes (per SOC) Grading Clerk Name : Briseida Gupta Grading Clerk Grading Clerk Fax/Email: Briseida Gupta <[email or web address]> Release of Information?: Yes (verbal) Family/Friend Contact Name: Catalina Alvarado -Mothers Family/Friend Contact or [phone] Other Contact Name : Salvatore Alvarado - Son Other Contact Action Plans: Discharge Planning Plan: Expected Discharge Date/Time: 08/20/2023 13:00 Disposition: Home Location: [address] [place] [address] Electronically signed by Mora Leo, FORMING AND ASSEMBLING SUPERVISOR, INDUSTRIAL MACHINE SYSTEM TECHNICIAN at 08/20/2023 1:05 PM CDT * Plan of Care - Isaura Portillo OTR/Sebastien - 08/20/2023 7:05 AM CDT [facility] Occupational Therapy Plan of Care Note Group Name Attendance Minutes Topic Movement/Exercise Absent/Refusal Activity Room/Group Life Skills/IM&R Attended 30 Art therapy Clinic Absent/Refusal Daily Group Total: 1 OT Evaluation Minutes: Evaluation: All OT Evaluations are found under Consults - OT Notes. Group Daily Assessment Sensory Items/Activities Offered: Tea Grooming: WNL Affect: Tense, Anxious Cognitive/Tracking: Fallentimber Social Skills: Poor coping skills Work Skills: WNL Investment/Participation: In and out of group Comments: 1:1 OT Assessment Minutes: 15 Topic: Checking in with patient, Discharge planning Comments: Sensory Assessment According to current staff [...] Assessment Patient Reported Strengths: Patient's Curriculum Track Boosting Mood & Energy Patient's Recovery Goals Patient's Recovery Goals: Unable Patient's Personal Recovery Goal: To find a psychologist that knows more about schizophrenia First Short Term Goal Related to Achieving Personal Goal: Find support groups Goal Status: Set Step 1 in Achieving Goals: Find meds that help with the voices. Step 1 Goal Status: Set Patient's Goals OT Treatment Goals 1. Assess [...] and/or Movement/Exercise. * Plan of Care - Caridad Neves RN - 08/20/2023 2:49 AM CDT Assessment: Sleep Plan: Patient will sleep for more than 5 hours Subjective: N/A Objective: Patient appeared to have slept for more than 5 hours with no incident. 15 minutes security checks ongoing, breathing nonlabored. Patient received Methocarbamol,Olanzapine and Benadryl at 0046 per request. * Plan of Care - Halle Vidales RN - 08/19/2023 9:24 PM CDT Problem: Mood Impairment (Psychotic Signs/Symptoms) Goal: Improved Mood Symptoms (Psychotic Signs/Symptoms) Outcome: Progressing [facility] Plan of Care Note Assessment: Disturbed thinking Plan: Monitor mood, thoughts, behavior. Inform patient of plan of care. Meds as ordered. Subjective: I won't be able to put patches on my back when I'm at home. Objective: Tom has been visible on the unit all shift. He is social with peers, controlled. Early in shift he had web content writer apply the Aspercreme ungt to his right shoulder and Lidocaine ungt to his neck. Said they help better than the pain patches. He was frustrated early in the shift because as an MHT was helping him with his phone, he thought it seemed like it had been hacked, was trying to get some financial information. Was told this isn't allowed without permission, was upset because of that and the phone issue. Manager Convention assured him that staff can check in the am. Manager Convention left for ADA Velazco. His phone seemed to be working later in shift, so he is relieved. He denied SI, HI, hallucinations. Compliant with meds at . Hoping for DC tomorrow. --- End of Report --- * Plan of Care - Mora Leo MSW, INDUSTRIAL MACHINE SYSTEM TECHNICIAN - 08/19/2023 12:58 PM CDT [facility] Social Work Progress Note Data: Pt discussed in team this AM. Team reviewed d/c tomorrow pending coordination. Manager Convention put call out to pt's mother Grace. Grace shared she is comfortable having pt home and works until noon and then can receive pt. Manager Convention put out call and email to pt's CMBriseida. Briseida shared concerns that pt d/c home with AA mtgs and psych f/up does not meet the terms of pt's SOC- left via VM. Manager Convention connected with Briseida late in the day d/t her schedule. Briseida wants pt to stay in hospital until he can be applied for MA, which she plans to do as per advice nurse's order indicating she can do this with or without pt's approval. Manager Convention shared pt has been ready for placement for several days and nolonger meets criteria for hospitalization. Manager Convention shared a review of pt's SOC order which indicatespt to either participate in residential or OP YASMEEN tx and/or d/c with plan at the discretion of hospital team. Manager Convention shared team feels pt appropriate for d/c with AA and OP psych with plan to move inthis direction. CM listed several concerns including pt will relapse right away. Manager Convention advocated pt must be given the opportunity to exhibit stage of change level and that county went through with SOC without consulting with hospital and CM. Cm expressed understanding. Manager Convention offered conference call tomorrow with pt, ADA, newly assigned CM and current CM Grace. Conference call planned for tomorrow at 1030 and d/c anticipated therafter via cab at noon to mom's. Legal Status: SOC [facility] Collateral Contacts Collateral Contacts: Grading Clerk Release of Information?: Yes (per SOC) Grading Clerk Name : Briseida Gupta Grading Clerk Grading Clerk Fax/Email: Briseida Gupta <[email or web address] Release of Information?: Yes (verbal) Family/Friend Contact Name: Catalina Alvarado -Mothers Family/Friend Contact or [phone] Other Contact Name : Salvatore Alvarado - Son Other Contact Action Plans: Discharge Planning Plan: Expected Discharge Date/Time: 09/04/2023 Disposition: Home Location: [address] [place], [place] [id number] Electronically signed by Mora Leo, FORMING AND ASSEMBLING SUPERVISOR, INDUSTRIAL MACHINE SYSTEM TECHNICIAN at 08/19/2023 6:17 PM CDT * Plan of Care - Melissa Ryan RN - 08/19/2023 7:53 AM CDT Problem: Adult Behavioral Health Plan of Care Goal: Plan of Care Review Outcome: Progressing Goal: Absence of New-Onset Illness or Injury Outcome: Progressing Problem: Mood Impairment (Psychotic Signs/Symptoms) Goal: Improved Mood Symptoms (Psychotic Signs/Symptoms) Outcome: Progressing [facility] Plan of Care Note Assessment: General Plan of Care Plan: Pt to follow plan of care Subjective: I know I may not get Robaxin and maybe Tylenol now, but I want my other meds and 2 lidocaine patches instead of 3, and aspercreme for my left shoulder Objective: Pt out to the common areas at the beginning of shift, watching tv and socializing with peers. Pt out to NS to ask for meds for chronic pain to neck, shoulder and back. Pt denied suicidal or homicidal ideations, hallucinations, thoughts of harming self or others. Pt is visible mostly in the common areas, out to NS seeking meds mostly. Pt participated in group activities, denied any new concerns. BP (!) 140/88 Pulse 83 Temp 98.2 ??F (36.8 ??C) (Skin) Resp 18 Ht 6' 1 (1.854 m) Comment: per EHR Wt 91.5 kg (201 lb 11.2 oz) SpO2 100% BMI 26.61 kg/m?? --- End of Report --- * Plan of Care - Kristin Bangura COTA/Sebastien - 08/19/2023 6:44 AM CDT [facility] Occupational Therapy Plan of Care Note Group Name Attendance Minutes Topic Movement/Exercise Attended 15 Movement Game Activity Room/Group Life Skills/IM&R Attended 45 Coffee shop Clinic Attended 60 Daily Group Total: 3 OT Evaluation Minutes: Evaluation: All OT Evaluations are found under Consults - OT Notes. Group Daily Assessment Sensory Items/Activities Offered: Grooming: WNL Affect: WNL Cognitive/Tracking: WNL Social Skills: WNL Work Skills: WNL Investment/Participation: WNL Comments: Patient is friendly, pleasantly engaged, and invested in task-based activities. He reminisces with web content writer about raising his children, brightening in affect throughout. Thelma Worthy OTR/L Coffee Shop- Pt. engaged in activity, good tracking and follow through. Pleasant and social manner. Pt. seemed pleased that he was informed of discharge details for tomorrow. MAR Maldonado/Sebastien 1:1 OT Assessment Minutes: 15 Topic: Checking in with patient Comments: Sensory Assessment According to current staff [...] Assessment Patient Reported Strengths: Patient's Curriculum Track Boosting Mood & Energy Patient's Recovery Goals Patient's Recovery Goals: Unable Patient's Personal Recovery Goal: To find a psychologist that knows more about schizophrenia First Short Term Goal Related to Achieving Personal Goal: Find support groups Goal Status: Set Step 1 in Achieving Goals: Find meds that help with the voices. Step 1 Goal Status: Set Patient's Goals OT Treatment Goals 1. Assess [...] of Care - Alicia Kingsley RN - 08/19/2023 6:21 AM CDT Plan of Care Note Assessment: Sleep Plan: Patient will sleep >5 hours Subjective: N/A Objective: Patient appeared to have slept more than 5 hours during the shift. Patient given prn tylenol and Robaxin at 0452 per request for neck and back pain rated 5/10. No behavior or safety concerns noted. Security checks ongoing. --- End of Report --- * Plan of Care - Halle Vidales RN - 08/18/2023 9:43 PM CDT Problem: Mood Impairment (Psychotic Signs/Symptoms) Goal: Improved Mood Symptoms (Psychotic Signs/Symptoms) Outcome: Progressing [facility] Plan of Care Note Assessment: Disturbed thinking/Chronic pain Plan: Monitor mood, thoughts, behavior. Inform patient of plan of care. Meds as ordered. Subjective: I need some Robaxin now. My back is 5 and my neck is 4. Objective: Tom has been visible on the unit, watching tv, talking on the phone. Social with peers. He went to the activity room with peers. He's been calm and controlled. Denies psych symptoms. Robaxin given prn at 1548, pain 4-5/10, and also gets scheduled HS dose. Reports some relief from meds. Pain patches removed when it was time. --- End of Report --- * Plan of Care - Yolande Escalante - 08/18/2023 1:47 PM CDT [facility] Social Work Progress Note Data: Patient case was discussed this morning in treatment team and web content writer reviewed the patient chart notes from the previous evening. Patient was noted to have slept, attended groups on the unit, and was invested in groups. Manager Convention met with patient on the unit this morning. Patient relayed he was feeling okay today, he hadattempted to get himself in for therapy prior to this admission, but states no one was taking his insurance. Patient indicated a few places that he had already attempted to call, indicated would havethe LASER BEAM COLOR SCANNER OPERATOR call to see if they could find a therapist to take his insurance - patient agreeable and appreciative of this. Manager Convention left a message for patient mother with information that patient would likely be discharged this week. Asked for return call to discuss discharge planning with mother. Manager Convention sent an email to the patient CM with an update on the plan/discharge and will follow up withher again when we have a confirmed date. Legal Status: SOC [facility] Collateral Contacts Collateral Contacts: Grading Clerk Release of Information?: Yes (per SOC) Grading Clerk Name : Briseida Gupta Grading Clerk Grading Clerk Fax/Email: Briseida Gupta <[email or web address] Release of Information?: Yes (verbal) Family/Friend Contact Name: Catalina Alvarado -Mothers Family/Friend Contact or [phone] Other Contact Name : Salvatore Alvarado - Son Other Contact Action Plans: Discharge Planning Plan: Expected Discharge Date/Time: 09/04/2023 Disposition: YASMEEN Treatment Location: * Plan of Care - Melissa Ryan RN - 08/18/2023 10:36 AM CDT Problem: Adult Behavioral Health Plan of Care Goal: Plan of Care Review Outcome: Progressing Goal: Optimized Coping Skills in Response to Life Stressors Outcome: Progressing Problem: Mood Impairment (Psychotic Signs/Symptoms) Goal: Improved Mood Symptoms (Psychotic Signs/Symptoms) Outcome: Progressing [facility] Plan of Care Note Assessment: General Plan of Care Plan: Pt to follow plan of care Subjective: I need robaxin with my morning medications, I get it 4 times a day so I can take it now. I had surgery on my neck, my shoulder hurts, my back hurts. You have to cut the patches and put abig tape on it Objective: Pt out to NS at start of shift to request PRN meds with scheduled meds, educated on Robaxin being too soon for next admin, pt is demanding and argumentative about timing. Pt mood is labileand irritable. Pt reported chronic pain to neck, shoulder and back, rated at 5-6/10. Robaxin 750 mggiven per provider's approval, pt reported med effective. Denied any SI, HI, AVH, thoughts or plansof harming self or others. Denied any new or ongoing concerns. At afternoon med pass, pt was playing card game with peers, had to pause to move neck and shoulder around before rating pain a 5/10. BP (!) 141/88 Pulse 86 Temp 97.5 ??F (36.4 ??C) (Skin) Resp 18 Ht 6' 1 (1.854 m) Comment: per EHR Wt 91.5 kg (201 lb 11.2 oz) SpO2 98% BMI 26.61 kg/m?? --- End of Report --- * Plan of Care - Kristin Bangura COTA/L - 08/18/2023 7:14 AM CDT [facility] Occupational Therapy Plan of Care Note Group Name Attendance Minutes Topic Movement/Exercise Absent/Refusal Activity Room/Group Life Skills/IM&R Attended 60 Cooking, Leisure Clinic Absent/Refusal Daily Group Total: 1 OT Evaluation Minutes: Evaluation: All OT Evaluations are found under Consults - OT Notes. Group Daily Assessment Sensory Items/Activities Offered: Grooming: WNL Affect: Brightens with activity Cognitive/Tracking: WNL Social Skills: WNL Work Skills: WNL Investment/Participation: WNL Comments: Pt. in good spirits, active, invested participant. Friendly and social manner. Took leadership role with small group, supportive and encouraging manner. MAR Maldonado/Sebastien 1:1 OT Assessment Minutes: 15 Topic: Grooming Comments: Sensory Assessment According to current staff [...] Assessment Patient Reported Strengths: Patient's Curriculum Track Boosting Mood & Energy Patient's Recovery Goals Patient's Recovery Goals: Unable Patient's Personal Recovery Goal: To find a psychologist that knows more about schizophrenia First Short Term Goal Related to Achieving Personal Goal: Find support groups Goal Status: Set Step 1 in Achieving Goals: Find meds that help with the voices. Step 1 Goal Status: Set Patient's Goals OT Treatment Goals 1. Assess [...] and/or Movement/Exercise. * Plan of Care - Laurita Ferrari RN - 08/18/2023 3:06 AM CDT [facility] Plan of Care Note Assessment: Sleep Plan: Patient will sleep > 5 hours Subjective: I'm okay, just need muscle relaxant, Zyprexa, and med to sleep Objective: Patient came to request for PRN Robaxin, Zyprexa and Benadryl.. Patient is medication compliant. Patient denied all psych symptoms. No behavioral or safety concerns noted. 15 minutes checks provided. --- End of Report --- * Plan of Care - Alma Smith RN - 08/17/2023 9:23 PM CDT [facility] Plan of Care Note Assessment: Plan of care. Plan: Monitor and document on mood, thoughts, interaction and behavior. Interact with pt to build trust. Encourage expression of needs/concerns in a non threatening manner.Monitor and offer PRN for pain. Subjective: I am doing great, the pain I have is 5 and 6. Objective: As usual, pt spent most of the evening in the day room socializing with peers and watching TV. Affect was bright, pt was approachable and controlled behaviorally. Went to the activity roomwith peers. Stated that his mind is stable, pain is 6/10 at his lower back and 5/10 at his neck. Medication is helpful, he stated. Pt denied all psych concerns. --- End of Report --- * Plan of Care - Mora Leo MSW, JASS - 08/17/2023 11:38 AM CDT [facility] Social Work Progress Note Data: Pt discussed in team this AM. Manager Convention put call out to pt's CM, Briseida, sharing pt to likely d/c later this week home with AA followup. CB requested. Manager Convention put out call to pt's mother, Briseida, and LVM requesting CB to coordinate d/c. Manager Convention checked in with pt today to review needing to hear from mom and CM to move forward with d/c home. Legal Status: SOC [facility] Collateral Contacts Collateral Contacts: Grading Clerk Release of Information?: Yes (per SOC) Grading Clerk Name : Briseida Gupta Grading Clerk Grading Clerk Fax/Email: Briseida Gupta <[email or web address]> Release of Information?: Yes (verbal) Family/Friend Contact Name: Catalina Alvarado -Mothers Family/Friend Contact or [phone] Other Contact Name : Salvatore Alvarado - Son Other Contact Action Plans:YASMEEN tx Plan: Expected Discharge Date/Time: 09/04/2023 Disposition: YASMEEN Treatment Location: * Plan of Care - Mar Shanks RN - 08/17/2023 8:59 AM CDT [facility] Plan of Care Note Assessment: Altered thought process/behavior/mood. Plan: Follow plan of care. Maintain safety. Provide therapeutic communication. Subjective: I'm gonna need some tape to make sure my lidocaine patch stays. Otherwise it sticks alexander shirt and comes off. Am I getting the Robaxin and Tylenol? Objective: Patient calm, controlled and able to make needs known appropriately. Denied SI, HI, AVH.Endorsed pain of 5/10 in neck and back. Reminder provided that robaxin was administered earlier this morning at around 0500 and patient accepting. Lidocaine patches applied x2 halves to neck and x2 to lower back fusion site and reinforced with tape. All safety measures in place. Security checks continued. --- End of Report --- * Plan of Care - Willem Kristin MAR Briones/Sebastien - 08/17/2023 7:10 AM CDT [facility] Occupational Therapy Plan of Care Note Group Name Attendance Minutes Topic Movement/Exercise Absent/Refusal Activity Room/Group Life Skills/IM&R Attended 75 Art therapy Clinic Attended (Simultaneous filing. User may not have seen previous data.) 60, 15 (Simultaneous filing. User may not have seen previous data.) Daily Group Total: 2 OT Evaluation Minutes: Evaluation: All OT Evaluations are found under Consults - OT Notes. Group Daily Assessment Sensory Items/Activities Offered: Grooming: WNL (Simultaneous filing. User may not have seen previous data.) Affect: WNL (Simultaneous filing. User may not have seen previous data.) Cognitive/Tracking: WNL (Simultaneous filing. User may not have seen previous data.) Social Skills: WNL (Simultaneous filing. User may not have seen previous data.) Work Skills: WNL (Simultaneous filing. User may not have seen previous data.) Investment/Participation: WNL (Simultaneous filing. User may not have seen previous data.) Comments: Pt. had good investment, decisive, attentive to details of task. Motivated, follows through, positive thinking and positive interactions with peers/staff. JERRY Maldonado.- Pt.making positive comments throughout group. Spoke of enjoyment when working on crafts and talked about where he could purchase crafts once discharged. Pt. making numerous items to give to family members. Excited and positive about discharge this week. JERRY Maldonado 1:1 OT Assessment Minutes: 15 Topic: Grooming Comments: Sensory Assessment According to current staff [...] Assessment Patient Reported Strengths: Patient's Curriculum Track Boosting Mood & Energy Patient's Recovery Goals Patient's Recovery Goals: Unable Patient's Personal Recovery Goal: To find a psychologist that knows more about schizophrenia First Short Term Goal Related to Achieving Personal Goal: Find support groups Goal Status: Set Step 1 in Achieving Goals: Find meds that help with the voices. Step 1 Goal Status: Set Patient's Goals OT Treatment Goals 1. Assess [...] and Recovery (IM&R), Unit, Grooming and/or Movement/Exercise. I have evaluated this patient and reviewed all related documentation. Renetta Emery, OTR/L 08/17/2023 2:57 PM * Plan of Care - Anca Finney RN - 08/17/2023 12:48 AM CDT [facility] Plan of Care Note Assessment: Sleep Plan: Pt will have adequate sleep Subjective: N/A Objective: Pt slept 8.25 hours. Pt got up at 1220 to request PRN Tylenol, Zyprexa and Benadryl. Also gave him n ice pack for neck pain. Security checks completed every 15 min. Sleeping comfortably inbed, respiration even, non labored. --- End of Report --- * Plan of Care - Alma Smith RN - 08/16/2023 8:45 PM CDT [facility] Plan of Care Note Assessment: Plan of care. Plan: Monitor and document on mood, thoughts, interaction and behavior. Interact with pt to build trust. Encourage expression of needs/concerns in a non threatening manner.Monitor and offer PRN for pain. Subjective: Other than the pain I have, I am doing well. Objective: Patient was visible on the unit watching TV with peers, bright affect, social, appreciative and behaviorally controlled. Denied all psych concerns, states that he is fine mentally, but pain control continues to be an issue. Received scheduled medications without concerns. Denied SI/HI/AVH. --- End of Report --- * Plan of Care - Eric Holliday RN - 08/16/2023 11:04 AM CDT Problem: Mood Impairment (Psychotic Signs/Symptoms) Goal: Improved Mood Symptoms (Psychotic Signs/Symptoms) Outcome: Progressing [facility] Plan of Care Note Assessment: behavior, mood Plan: Provide interaction with pt to build trust. Encourage pt to verbalize concerns. Continue to assess and document. Subjective: I really want to get my kidneys healthy. Objective: Behaviorally controlled. Med compliant. Pleasant on interactions. Denies hallucinations or thoughts of harm to self or others. Given PRN robaxin in AM along with PRN voltaren cream. Voicedright shoulder bothering him. Given PRN robaxin in afternoon with scheduled medications. Voiced frustration with hearing he may be forced to pay twenty percent for CD treatment, according to his interpretation of conversation with [place] alfred CABALLERO. --- End of Report --- * Plan of Care - Mora Leo MSW, INDUSTRIAL MACHINE SYSTEM TECHNICIAN - 08/16/2023 9:40 AM CDT [facility] Social Work Progress Note Data: Pt discussed in team this AM. Manager Convention connected with Fela [facility]/ [facility] who confirms they cannot accept pt within [place] due to pt having Medicare. Manager Convention sent email to pt's Briseida CARABALLO asking if there is any [facility] assistance available, etc. Manager Convention met with pt on the unit to review treatment limitations. Manager Convention reviewed his Medicare would only cover 80 % of tx costs. Pt states he cannot afford to pay 20%. He is wanting to resume AA mtgs from mom's home. Manager Convention shared plans to call mom. Briseida sent web content writer [facility] assistance form which web content writer assisted pt in completing. Grace later sharedpt would need to apply for MA and be willing to pay a [place]; which he historically has not agreed to. Legal Status: SOC [facility] Collateral Contacts Collateral Contacts: Grading Clerk Release of Information?: Yes (per SOC) Grading Clerk Name : Briseida Gupta Grading Clerk Grading Clerk Fax/Email: Briseida Gupta <[email or web address] Release of Information?: Yes (verbal) Family/Friend Contact Name: Catalina Alvarado -Mothers Family/Friend Contact or [phone] Other Contact Name : Salvatore Hayden Other Contact Action Plans:YASMEEN tx Plan: Expected Discharge Date/Time: 09/04/2023 Disposition: YASMEEN Treatment Location: * Plan of Care - Shivani Ryan, OTR/L - 08/16/2023 7:13 AM CDT [facility] Occupational Therapy Plan of Care Note Group Name Attendance Minutes Topic Movement/Exercise Excused (went to activity room with other staff) Activity Room/Group Life Skills/IM&R Attended 30 Leisure Clinic Attended 60 Daily Group Total: 2 OT Evaluation Minutes: Evaluation: All OT Evaluations are found under Consults - OT Notes. Group Daily Assessment Sensory Items/Activities Offered: Grooming: WNL Affect: Tense Cognitive/Tracking: WNL Social Skills: Mainly interacted with staff Work Skills: WNL Investment/Participation: WNL Comments: Mostly kept to self and was task focused on project. Minimal socialization but pleasant and able to be assertive. Shivani Ryan OTR/L 1:1 OT Assessment Minutes: 15 Topic: Grooming Comments: Sensory Assessment According to current staff [...] Assessment Patient Reported Strengths: Patient's Curriculum Track Boosting Mood & Energy Patient's Recovery Goals Patient's Recovery Goals: Yes Patient's Personal Recovery Goal: To find a psychologist that knows more about schizophrenia First Short Term Goal Related to Achieving Personal Goal: Find support groups Goal Status: Set Step 1 in Achieving Goals: Find meds that help with the voices. Step 1 Goal Status: Set Patient's Goals OT Treatment Goals 1. Assess [...] and/or Movement/Exercise. * Plan of Care - Naida Chen RN - 08/15/2023 11:13 PM CDT [facility] Plan of Care Note Assessment: Sleep Plan: Patient will obtain optimal amounts of sleep. Subjective: N/A Objective: No acute event this shift; Pt sleeping majority of night; Non-labored breathing, appearscomfortable; No s/s of respiratory distress; Req/given PRN Benadryl for sleep, methocarbamol for pain and PRN Zyprexa for anxiety; Effective per pt's report. Safety 15 min checks ongoing; --- End of Report --- * Plan of Care - Ángel Galicia RN - 08/15/2023 6:36 PM CDT Problem: Mood Impairment (Psychotic Signs/Symptoms) Goal: Improved Mood Symptoms (Psychotic Signs/Symptoms) Outcome: Progressing Assessment: Mood Plan: Provide interaction to build trust. Encourage patient to verbalize needs. Continue to observeand document. Subjective: Can you help with my phone? I'll take some Aspercreme later for my neck. I'm goingto need to get my diclofenac (oral) back when I get home. It helps with the pain for 12 hours. Objective: Patient spent most of the shift out in the day room socializing with peers and watching TV. He was cooperative during interactions. He denied SI, HI, A/VH. He was allowed to pay a bill from his phone. He was cooperative with his medication. He received PRN topical diclofenac for pain. * Plan of Care - Eric Holliday RN - 08/15/2023 11:02 AM CDT Problem: Mood Impairment (Psychotic Signs/Symptoms) Goal: Improved Mood Symptoms (Psychotic Signs/Symptoms) Outcome: Progressing [facility] Plan of Care Note Assessment: mood, behavior, pain manangement Plan: Provide interaction with pt to build trust. Encourage pt to verbalize concerns. Continue to assess and document. Subjective: I'm feeling better. Even in here its nice to let my brain heal. Objective: Behaviorally controlled. Med compliant. Given PRN robaxin in the AM along with PRN voltaren cream. Calm mood. Appropriate affect. Denies hallucinations or thoughts of harm to self or others. Social with peers. Attending unit programming. Aware of current plan of care. Given PRN robaxin wi th scheduled 1400 medications. --- End of Report --- * Plan of Care - Meghna Arias RN - 08/15/2023 6:31 AM CDT [facility] Plan of Care Note Assessment: Plan of Care Note Assessment: Sleep Plan: Patient will sleep > 5 hrs Subjective: N/A Objective: Patient appeared to have slept more than 5 hours.PRN Tylenol, Robaxin and Zyprexa was given per request for headache and sleeplessness. No behavioral or safety concerns noted. Security checks ongoing. --- End of Report --- * Plan of Care - Halle Vidales RN - 08/14/2023 6:14 PM CDT Problem: Mood Impairment (Psychotic Signs/Symptoms) Goal: Improved Mood Symptoms (Psychotic Signs/Symptoms) Outcome: Progressing [facility] Plan of Care Note Assessment: Disturbed thinking Plan: Monitor mood, thoughts, behavior. Inform patient of plan of care. Meds as ordered. Monitor chronic pain, treatments as ordered. Subjective: Can I have the Aspercreme since I already have a Lidocaine patch on? Objective: Tom spends the evening on the unit, watching tv or having heavy conversations with peersabout politics, the Earth and other random topics. He is pleasant, calm and controlled. Denies SI, HI, hallucinations or pain. Was given Aspercreme gel x2, cold packs through shift for neck(510) andback (05/15) pain. Compliant with meds. --- End of Report --- * Plan of Care - Eric Holliday RN - 08/14/2023 10:37 AM CDT Problem: Mood Impairment (Psychotic Signs/Symptoms) Goal: Improved Mood Symptoms (Psychotic Signs/Symptoms) Outcome: Progressing [facility] Plan of Care Note Assessment: mood, behavior, pain Plan: Provide interaction with pt to build trust. Encourage pt to verbalize concerns. Continue to assess and document. Subjective: I'm hoping my kidneys improve so that I can take the meds again. Objective: Behaviorally controlled. Med compliant. Calm mood. Appropriate affect. Spends time watching TV in dayroom. Denies hallucinations or thoughts of harm to self or others. Attending unit programming. Utilized xylocaine and voltaren gels for shoulder/back pain. --- End of Report --- * Plan of Care - Chitra Pepe RN - 08/14/2023 3:58 AM CDT Problem: Sleep Disturbance Goal: Adequate Sleep/Rest Outcome: Progressing Pt was asleep at the start of the belt repairer. Pt woke up and requested for med's for anxiety and was given Zyprexa 10 mg PO for anxiety. Pt was also given Robaxin for pain. Pt is sleeping at this time. No behavioral issue noted. Pt is monitored for safety every 15 minutes. Will continue to monitor. * Plan of Care - Halle Vidales RN - 08/13/2023 10:06 PM CDT Problem: Mood Impairment (Psychotic Signs/Symptoms) Goal: Improved Mood Symptoms (Psychotic Signs/Symptoms) Outcome: Progressing [facility] Plan of Care Note Assessment: Disturbed thinking/Chronic Pain Plan: Monitor mood, thoughts, behavior. Inform patient of plan of care. Meds as ordered. Assess pain. Subjective: Will there still be meds that I can take when I wake up at night? Why don't I get Thiamine more than once a day? Objective: Tom has been visible on the unit most of edil, watching tv, social with select peers. He is talkative during 1:1, calm, pleasant. Denies SI, HI, hallucinations, pain. Talked about his kidneys, is hoping he can get more Thiamine while here, and also when DCed to treatment, to help improve his kidneys. Plans to stop drinking alcohol. Compliant with scheduled meds. Back and neck pain 07/15.Pain patches removed at HS, concerned that he wouldn't be able to apply those alone at home. He declined his skin cream. --- End of Report --- * Plan of Care - Eric Holliday RN - 08/13/2023 10:14 AM CDT Problem: Sleep Disturbance (Psychotic Signs/Symptoms) Goal: Improved Sleep (Psychotic Signs/Symptoms) Outcome: Progressing Problem: Mood Impairment (Psychotic Signs/Symptoms) Goal: Improved Mood Symptoms (Psychotic Signs/Symptoms) Outcome: Progressing [facility] Plan of Care Note Assessment: mood, behavior, plan Plan: Provide interaction with pt to build trust. Encourage pt to verbalize concerns. Continue to assess and document. Subjective: I think they are finally figuring out my sleep. Objective: Behaviorally controlled. Med compliant. Pleasant on interactions. Calm mood. Appropriateaffect. Denies hallucinations or thoughts of harm to self or others. Given ANNA mckenzie at 0823 and 1426. Attending unit programming. Social with select peers. --- End of Report --- * Plan of Care - Kelin Quintero OTR/Sebastien - 08/13/2023 7:16 AM CDT [facility] Occupational Therapy Plan of Care Note Group Name Attendance Minutes Topic Movement/Exercise Activity Room/Group Attended 30 Utilized fabiana sin, Utilized albaro Life Skills/IM&R Absent/Refusal Clinic Attended 45 Daily Group Total: 2 OT Evaluation Minutes: Evaluation: All OT Evaluations are found under Consults - OT Notes. Group Daily Assessment Sensory Items/Activities Offered: Grooming: WNL Affect: WNL Cognitive/Tracking: WNL Social Skills: (Speech):, Loud, Rambling Work Skills: WNL Investment/Participation: WNL, Leaves group early Comments: Patient expresses some frustrations with changes in discharge planning; however, he remains positively future focused and looks forward to attending treatment and therapy. Expresses to web content writer that he struggles with drinking and later shares that his son while he was in treatment. 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 IMTIAZ He/Sebastien 1:1 OT Assessment Minutes: Topic: Comments: Sensory Assessment OT Sensory Intervention Time: 15 minutes Patient was seen for SI needs: Patient initiated use of sensory education, interventions and/or equipment Sensory items/activities receptive and preferred: Chewing Gum, Earplugs According to current staff observation, sensory self-report, [...] Assessment Patient Reported Strengths: Patient's Curriculum Track Boosting Mood & Energy Patient's Recovery Goals Patient's Recovery Goals: Yes Patient's Personal Recovery Goal: To find a psychologist that knows more about schizophrenia First Short Term Goal Related to Achieving Personal Goal: Find support groups Goal Status: Set Step 1 in Achieving Goals: Find meds that help with the voices. Step 1 Goal Status: Set Patient's Goals OT Treatment Goals 1. Assess [...] of Care - Alicia Kingsley RN - 08/13/2023 6:40 AM CDT Plan of Care Note Assessment: Sleep Plan: Patient will sleep >5 hours Subjective: N/A Objective: Patient appeared to have slept more than 5 hours during the shift. Patient given prn tylenol, robaxin, and zyprexa at 0200 per request for pain and restlessness. No behavior or safety concerns noted. Security checks ongoing. --- End of Report --- * Plan of Care - Brendan Hutchison RN - 08/12/2023 11:05 PM CDT Problem: Mood Impairment (Psychotic Signs/Symptoms) Goal: Improved Mood Symptoms (Psychotic Signs/Symptoms) Outcome: Progressing Problem: Adult Behavioral Health Plan of Care Goal: Plan of Care Review Outcome: Progressing [facility] Plan of Care Note Assessment: Plan of care Plan: Patient will continue to verbalize feeling and concerns and cooperate with the plan of care.Ensure safe and appropriate behavior. Provide interaction with patient to build trust. Encourage patient to follow plan of care. Encourage patient to verbalize concerns. Subjective: I want robaxin later I have PRN Objective: Pt is behaviorally controlled. Med complaint. Patient denies visual hallucinations, auditory hallucinations, suicidal ideation, homicidal ideation. Calm and cooperative. No aggressive behavior. * Plan of Care - Mora Leo MSW, INDUSTRIAL MACHINE SYSTEM TECHNICIAN - 08/12/2023 9:48 AM CDT [facility] Social Work Progress Note Data: Pt discussed in team this AM. Manager Convention put out call to Fela Lakhani Ph: Office w/ [facility] intake and was connected to Sandra who states Fela is no longer with [facility] and she will be point of contact. She asked web content writer send last 3 days of notes and she will review with her frame sample and pattern supervisor today. Manager Convention states pt ready for assessment at any time Legal Status: SOC [facility] Collateral Contacts Collateral Contacts: Grading Clerk Release of Information?: Yes (per SOC) Grading Clerk Name : Briseida Gupta Grading Clerk Grading Clerk Fax/Email: Briseida Gupta <[email or web address] Release of Information?: Yes (verbal) Family/Friend Contact Name: Catalina Alvarado -Mothers Family/Friend Contact or [phone] Other Contact Name : Salvatore Alvarado - Son Other Contact Action Plans:YASMEEN tx Plan: Expected Discharge Date/Time: 09/04/2023 Disposition: Location: Addendum 3 PM Pt accepted at [facility] later in the afternoon and that assessment not needed because of the records web content writer sent. Manager Convention met with pt on the unit who was happy to hear this and agreeable. Sandra @ [facility] calls web content writer a bit later stating they actually no not accept pts insurance but can complete a rule 24 to see if he qualifies for the OO span. Jalenjoe completed this with pt over the phone a bit later and believes pt is overcome by $6k and does not qualify. Pt no longer discharging to tomorrow. * Plan of Care - Renetta Emery OTR/Sebastien - 08/12/2023 6:51 AM CDT [facility] Occupational Therapy Plan of Care Note Group Name Attendance Minutes Topic Movement/Exercise Attended 30 Movement Game Activity Room/Group Life Skills/IM&R Attended 60 Coffee shop Clinic Attended 60 Daily Group Total: 3 OT Evaluation Minutes: Evaluation: All OT Evaluations are found under Consults - OT Notes. Group Daily Assessment Sensory Items/Activities Offered: Grooming: WNL Affect: Slight range Cognitive/Tracking: WNL Social Skills: WNL Work Skills: WNL Investment/Participation: WNL Comments: Pt. had good motivation, investment and follow through. Attentive to details of task. Pt.social with staff/peers. MAR Maldonado/Sebastien Pleasant manner and good participation throughout PM coffee shop session. Renetta Emery, OTR/L 1:1 OT Assessment Minutes: 15 Topic: Checking in with patient Comments: Sensory Assessment According to current staff [...] Assessment Patient Reported Strengths: Patient's Curriculum Track Boosting Mood & Energy Patient's Recovery Goals Patient's Recovery Goals: Yes Patient's Personal Recovery Goal: To find a psychologist that knows more about schizophrenia First Short Term Goal Related to Achieving Personal Goal: Find support groups Goal Status: Set Step 1 in Achieving Goals: Find meds that help with the voices. Step 1 Goal Status: Set Patient's Goals OT Treatment Goals 1. Assess [...] and/or Movement/Exercise. * Plan of Care - Naida Chen RN - 08/12/2023 12:18 AM CDT [facility] Plan of Care Note Assessment: Sleep Plan: Patient will obtain optimal amounts of sleep. Subjective: N/A Objective: No acute event this shift; Pt sleeping majority of night; Non-labored breathing, appearscomfortable; No s/s of respiratory distress; Awake at 0130, request/given PRN Tylenol and methocarbamol for pain, PRN Zyprexa for anxiety/sleep; PRNs effective; Safety 15 min checks ongoing; --- End of Report --- * Plan of Care - Naina Cardoso RN - 08/11/2023 9:34 PM CDT Problem: Mood Impairment (Psychotic Signs/Symptoms) Goal: Improved Mood Symptoms (Psychotic Signs/Symptoms) Outcome: Progressing Problem: Adult Behavioral Health Plan of Care Goal: Plan of Care Review Outcome: Progressing [facility] Plan of Care Note Assessment: Alteration in thought process, mood and behavior Plan: Patient will verbalize feelings and thoughts. Staff to assess and monitor moods, thoughts andbehaviors. Subjective: I feel much better today, I dont have much pain today as I used to Objective: Patient verbalized improvement with new pain treatment, he was in the day room watching TV and socializing with peers. He denies SI/HI/AVH, and pain was rated 4 on a scale of 1-10 all evening while pt did not make use of his PRN pain medication. No behavioral concern noted on evening shift. Patient Vitals for the past 8 hrs: BP Temp Temp src Pulse Resp SpO2 08/11/23 1552 (!) 141/86 97.8 ??F (36.6 ??C) Oral 87 18 100 % --- End of Report --- * Plan of Care - Mora Leo MSW, JASS - 08/11/2023 8:59 AM CDT [facility] Social Work Progress Note Data: Pt discussed in team this AM. Manager Convention sent records to [facility] <[email or web address]>; [facility] <[email or web address]> as requested. Legal Status: SOC [facility] Collateral Contacts Collateral Contacts: Grading Clerk Release of Information?: Yes (per SOC) Grading Clerk Name : Briseida Gupta Grading Clerk Grading Clerk Fax/Email: Briseida Gupta <[email or web address]> Release of Information?: Yes (verbal) Family/Friend Contact Name: Catalina Alvarado -Mothers Family/Friend Contact or [phone] Other Contact Name : Salvatore Alvarado - Son Other Contact Action Plans:YASMEEN tx Plan: Expected Discharge Date/Time: 09/04/2023 Disposition: Location: * Plan of Care - Jesika Welch RN - 08/11/2023 8:49 AM CDT Problem: Mood Impairment (Psychotic Signs/Symptoms) Goal: Improved Mood Symptoms (Psychotic Signs/Symptoms) Outcome: Progressing [facility] Plan of Care Note Assessment: Calm, cooperative Plan: Provide interaction to build trust, encourage verbalization of needs, explain plan of care topatient. Monitor thoughts, behaviors and mood. Subjective: I slept better last night Objective: Pt was out on the unit, watched TV with peers. Behavior controlled, med compliant; denied feeling depressed and denied SI. He requested and received PRN Robaxin for back pain, and PRN lidocaine ointment for neck pain. Pt was cooperative with lab draw, but later lab informed staff that itneeded to be redrawn. When lab came back it was the same person that norberto it the first time so pt refused at that time, as pt said it was painful, stating, She was moving around so fast and going for the bone!. --- End of Report --- * Plan of Care - Kelin Quintero OTR/Sebastien - 08/11/2023 7:40 AM CDT [facility] Occupational Therapy Plan of Care Note Group Name Attendance Minutes Topic Movement/Exercise Attended 30 Nader Chi Activity Room/Group Life Skills/IM&R Absent/Refusal Clinic Attended 60 Daily Group Total: 2 OT Evaluation Minutes: Evaluation: All OT Evaluations are found under Consults - OT Notes. Group Daily Assessment Sensory Items/Activities Offered: Grooming: WNL Affect: Anxious, Serious, Brightens with activity Cognitive/Tracking: WNL Social Skills: WNL Work Skills: WNL Investment/Participation: WNL, Needs additional encouragement to join groups Comments: Pt reported feeling pain, saying that he couldn't come to exercise group. Pt was open to joining group and doing what he could. Good participation and able to follow along with exercises that he felt comfortable doing. Pt reported that he is in a lot of pain and that he isn't allowed painmeds because they could damage his liver more. It's my fault it's damaged. But I still need to figure out what to do about the pain. Pt was encouraged to continue looking into relaxation techniques, (i.e. gentle exercise, mediation, etc) to help with managing pain. Kelin Quintero OTR/L 1:1 OT Assessment Minutes: 15 Topic: Grooming Comments: Sensory Assessment According to current staff [...] Assessment Patient Reported Strengths: Patient's Curriculum Track Boosting Mood & Energy Patient's Recovery Goals Patient's Recovery Goals: Yes Patient's Personal Recovery Goal: To find a psychologist that knows more about schizophrenia First Short Term Goal Related to Achieving Personal Goal: Find support groups Goal Status: Set Step 1 in Achieving Goals: Find meds that help with the voices. Step 1 Goal Status: Set Patient's Goals OT Treatment Goals 1. Assess [...] and/or Movement/Exercise. * Plan of Care - Chitra Pepe RN - 08/11/2023 3:41 AM CDT Problem: Sleep Disturbance Goal: Adequate Sleep/Rest Outcome: Progressing Pt was asleep at the start of the belt repairer. Pt woke up and requested for medications for anxiety. Pt was given Zyprexa 10 mg PO for anxiety. Pt is sleeping at this time. No behavioral issue noted.Pt is monitored for safety every 15 minutes. Will continue to monitor. * Plan of Care - Naina Cardoso RN - 08/10/2023 9:14 PM CDT Problem: Mood Impairment (Psychotic Signs/Symptoms) Goal: Improved Mood Symptoms (Psychotic Signs/Symptoms) Outcome: Progressing Problem: Adult Behavioral Health Plan of Care Goal: Plan of Care Review Outcome: Progressing [facility] Plan of Care Note Assessment: Alteration in thought process, mood and behavior Plan: Patient will be cooperative with cares and medication; verbalize feelings and thoughts. Subjective: Can I have my medications around 2000h?. Objective: Patient is calm and oriented, he complained of pain rated 7 on a scale of 1- 10, PRN Tylenol BID new order given with good effect. He was in the day room socializing with peers and watching TV. No additional behavioral or safety concerns noted. Patient Vitals for the past 8 hrs: BP Temp Temp src Pulse Resp SpO2 08/10/23 1613 (!) 137/94 98.6 ??F (37 ??C) Skin 80 17 98 % --- End of Report --- * Plan of Care - Mora Leo MSW, INDUSTRIAL MACHINE SYSTEM TECHNICIAN - 08/10/2023 11:22 AM CDT [facility] Social Work Progress Note Data: Pt discussed in team this AM. Manager Convention put email out to [facility] requesting follow up on referral sent Wednesday. Manager Convention asked if theywill be able to complete YASMEEN assessment today or tomorrow. Legal Status: SOC [facility] Collateral Contacts Collateral Contacts: Grading Clerk Release of Information?: Yes (per SOC) Grading Clerk Name : Briseida Gupta Grading Clerk Grading Clerk Fax/Email: Briseida Gupta <[email or web address]> Release of Information?: Yes (verbal) Family/Friend Contact Name: Catalina Alvarado -Mothers Family/Friend Contact or [phone] Other Contact Name : Salvatore Alvarado - Son Other Contact Action Plans:YASMEEN tx Plan: Expected Discharge Date/Time: 09/04/2023 Disposition: Location: * Plan of Care - Jesika Welch RN - 08/10/2023 10:20 AM CDT Problem: Mood Impairment (Psychotic Signs/Symptoms) Goal: Improved Mood Symptoms (Psychotic Signs/Symptoms) Outcome: Progressing [facility] Plan of Care Note Assessment: Calm, preoccupied Plan: Provide interaction to build trust, encourage verbalization of needs, explain plan of care topatient. Monitor thoughts, behaviors and mood. Subjective: I know the pain is going to get a lot worse when I go back [place] the [place]; Do you think there's any way they can give me more thiamine, if it's supposed to help my kidneys? Objective: Pt was out on the unit, social with staff. He was calm and controlled, med compliant; ptconcerned about his level of pain going up especially after discharge since Motrin discontinued. Heheard it was because of his kidney function, wondered if kidneys can fully recover and if there's apoint where they are not able to recover from. He explained that NSAIDs work better because they address the inflammation. --- End of Report --- * Plan of Care - Dalila Salguero RN - 08/10/2023 7:27 AM CDT Problem: Patient Care Overview (Adult) Goal: Plan of Care Review Outcome: Progressing [facility] Plan of Care Note Assessment: Sleep Plan: Pt will sleep > 5 hrs. Subjective: NA Objective: Pt appeared to have slept through most of the night. Pt c/o trouble staying asleep and receive PRN benadryl and Zyprexa. no incident. 15 min checks ongoing. --- End of Report --- * Plan of Care - Renetta Emery OTR/Sebastien - 08/10/2023 7:10 AM CDT [facility] Occupational Therapy Plan of Care Note Group Name Attendance Minutes Topic Movement/Exercise Attended 30 Movement Game Activity Room/Group Life Skills/IM&R Attended 60 Social skills Clinic Attended 45 Daily Group Total: 3 OT Evaluation Minutes: Evaluation: All OT Evaluations are found under Consults - OT Notes. Group Daily Assessment Sensory Items/Activities Offered: Grooming: WNL Affect: Anxious, Serious, Brightens with activity Cognitive/Tracking: WNL Social Skills: WNL Work Skills: WNL Investment/Participation: In and out of group Comments: Initially declined participation in AM movement session, stated that patient was in too much pain to join session. With encouragement from web content writer and peers, joined movement game; brightenedwith good engagement throughout movement session. During AM OT clinic, demonstrated independent work skills and good follow-through. Shared that patient had concerns about managing physical pain without preferred pain medication, added that [facility] are offering helpful advice. The doctors here are actually really good. Excellent participation during PM life skills session. Bright andengaged. Renetta mEery OTR/L 1:1 OT Assessment Minutes: 15 Topic: Grooming Comments: Sensory Assessment According to current staff [...] Assessment Patient Reported Strengths: Patient's Curriculum Track Boosting Mood & Energy Patient's Recovery Goals Patient's Recovery Goals: Yes Patient's Personal Recovery Goal: To find a psychologist that knows more about schizophrenia First Short Term Goal Related to Achieving Personal Goal: Find support groups Goal Status: Set Step 1 in Achieving Goals: Find meds that help with the voices. Step 1 Goal Status: Set Patient's Goals OT Treatment Goals 1. Assess [...] and Recovery (IM&R), Unit, Grooming and/or Movement/Exercise. I have evaluated this patient and reviewed all related documentation. Renetta Emery OTR/L 42:35 PM * Plan of Care - WillemKristin hayden JERRY Briones - 08/10/2023 6:52 AM CDT [facility] Occupational Therapy Plan of Care Note Group Name Attendance Minutes Topic Movement/Exercise Attended 30 Nader Chi Activity Room/Group Life Skills/IM&R Absent/Refusal Clinic Attended 60 Daily Group Total: 2 OT Evaluation Minutes: Evaluation: All OT Evaluations are found under Consults - OT Notes. Group Daily Assessment Sensory Items/Activities Offered: Grooming: WNL Affect: Anxious, Serious, Brightens with activity Cognitive/Tracking: WNL Social Skills: WNL Work Skills: WNL Investment/Participation: WNL, Needs additional encouragement to join groups Comments: Pt reported feeling pain, saying that he couldn't come to exercise group. Pt was open to joining group and doing what he could. Good participation and able to follow along with exercises that he felt comfortable doing. Pt reported that he is in a lot of pain and that he isn't allowed painmeds because they could damage his liver more. It's my fault it's damaged. But I still need to figure out what to do about the pain. Pt was encouraged to continue looking into relaxation techniques, (i.e. gentle exercise, mediation, etc) to help with managing pain. IMTIAZ Dotson/L 1:1 OT Assessment Minutes: 15 Topic: Grooming Comments: Sensory Assessment According to current staff [...] Assessment Patient Reported Strengths: Patient's Curriculum Track Boosting Mood & Energy Patient's Recovery Goals Patient's Recovery Goals: Yes Patient's Personal Recovery Goal: To find a psychologist that knows more about schizophrenia First Short Term Goal Related to Achieving Personal Goal: Find support groups Goal Status: Set Step 1 in Achieving Goals: Find meds that help with the voices. Step 1 Goal Status: Set Patient's Goals OT Treatment Goals 1. Assess [...] and Recovery (IM&R), Unit, Grooming and/or Movement/Exercise. JERRY Maldonado * Plan of Care - Melissa Ryan RN - 08/09/2023 4:56 PM CDT Problem: Adult Behavioral Health Plan of Care Goal: Plan of Care Review Outcome: Progressing Goal: Absence of New-Onset Illness or Injury Outcome: Progressing [facility] Plan of Care Note Assessment: General Plan of Care Plan: Pt to follow plan of care Subjective: My day was fine until they stopped my Motrin. 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 My pain is 3 now, but I'm talking about when it gets worse. I can't wait to get out of here to start taking Aleve Objective: Pt has been visible on the unit, socializing with peers intermittently. Pt reported doing fine today until Motrin was discontinued by provider. Pt reported tolerable pain to neck, rated at3/10, perseverated and preoccupied with Motrin being dc'd and dealing with chronic pain. Warm pack was utilized intermittently and effective per pt. Pt denied SI, HI, AVH, thoughts of hurting self orothers. Visible mostly in the common areas mostly watching TV with peers. Out to NS intermittently to make needs known. Legal Status: Orders Placed This Encounter Procedures Legal Status: Voluntary Privilege Level: Safety Observation: q15 minute checks Suicidal Ideation/Homicidal Ideation: Mood: appropriate to situation Thought Process: flight of ideas; Thought Content: perseveration, preoccupation Insight: insight not appropriate to situation, judgment not appropriate to situation Delusions: no delusions; Hallucinations: denies hallucinations Behavior: appropriate to situation, cooperative MIAHTAPS: 5 Nausea and Vomiting: No nausea and no vomiting Tremor: No tremor Paroxysmal Sweats: No sweat visible Anxiety: No anxiety, at ease Agitation: Normal activity Tactile Disturbances: None Auditory Disturbances: Not present Visual Disturbances: Not present Headache, Fullness in Head: Not present Orientation and Clouding of Sensorium: Oriented and can do serial additions CIWA Score: 0 COWS: Vital Signs: Patient Vitals for the past 24 hrs: BP Temp Temp src Pulse Resp SpO2 08/09/23 1607 (!) 153/86 97.9 ??F (36.6 ??C) Temporal Art 96 16 98 % 08/09/23 0804 (!) 145/94 97.6 ??F (36.4 ??C) Skin 87 16 100 % No additional behavioral or safety concerns noted. --- End of Report --- * Plan of Care - Mora Leo MSW, INDUSTRIAL MACHINE SYSTEM TECHNICIAN - 08/09/2023 10:51 AM CDT [facility] Social Work Progress Note Data: Pt discussed in team this AM. Manager Convention reviewed pt's chart from the weekend. Manager Convention has made referralto [facility] requesting YASMEEN assessment genet. Legal Status: SOC [facility] Collateral Contacts Collateral Contacts: Grading Clerk Release of Information?: Yes (per SOC) Grading Clerk Name : Briseida Gupta Grading Clerk Fax/Email: Briseida Gupta <[email or web address]> Release of Information?: Yes (verbal) Family/Friend Contact Name: Catalina Alvarado -Mothers Family/Friend Contact or [phone] Other Contact Name : Salvatore Alvarado - Son Other Contact Action Plans:YASMEEN tx Plan: Expected Discharge Date/Time: 09/04/2023 Disposition: Location: * Plan of Care - Kelin Quintero OTR/Sebastien - 08/09/2023 8:55 AM CDT [facility] Occupational Therapy Plan of Care Note Group Name Attendance Minutes Topic Movement/Exercise Activity Room/Group Attended 30 Utilized fabiana sin, Utilized porch Life Skills/IM&R Attended 60 (Calendar) Clinic Attended 60 Daily Group Total: 3 OT Evaluation Minutes: Evaluation: All OT Evaluations are found under Consults - OT Notes. Group Daily Assessment Sensory Items/Activities Offered: Grooming: WNL Affect: WNL Cognitive/Tracking: Fallentimber Social Skills: WNL Work Skills: WNL Investment/Participation: WNL Comments: 1:1 OT Assessment Minutes: 15 Topic: Checking in with patient Comments: Sensory Assessment According to current staff [...] Assessment Patient Reported Strengths: Patient's Curriculum Track Boosting Mood & Energy Patient's Recovery Goals Patient's Recovery Goals: Yes Patient's Personal Recovery Goal: To find a psychologist that knows more about schizophrenia First Short Term Goal Related to Achieving Personal Goal: Find support groups Goal Status: Set Step 1 in Achieving Goals: Find meds that help with the voices. Step 1 Goal Status: Set Patient's Goals OT Treatment Goals 1. Assess [...] and/or Movement/Exercise. * Plan of Care - Caridad Neves RN - 08/09/2023 2:45 AM CDT Assessment: Sleep Plan: Patient will sleep for more than 5 hours Subjective: N/A Objective: Patient appeared to have slept for more than 5 hours with no incident. 15 minutes security checks ongoing, breathing nonlabored. Patient received Olanzapine, Methocarbamol and Benadryl at 0100. * Plan of Care - Ruthie Myers RN - 08/08/2023 9:26 PM CDT Pt seeks PRN's throughout the day for pain. Pt is med compliant. Pt is forgetful of what he has taken, but appears to be around the clock on PRNs. Pt is social and out on the unit all day. Pt is calmand cooperative, social with peers. * Plan of Care - Caridad Neves RN - 08/08/2023 2:48 AM CDT Assessment: Sleep Plan: Patient will sleep for more than 5 hours Subjective: N/A Objective: Patient appeared to have slept for more than 5 hours with no incident. 15 minutes security checks ongoing, breathing nonlabored. Patient requested for PRN Benadryl, Olanzapine and Acetaminophen for 6/10 pain at 0056. Patient sleeping shortly after. Patient requested for some Ibuprofen at 0306. * Plan of Care - Ruthie Myers RN - 08/07/2023 10:31 PM CDT Pt is cooperative on the unit, med compliant, and makes his needs known. Pt is social with peers. No negative behaviors. * Plan of Care - Caridad Neves RN - 08/07/2023 2:52 AM CDT Assessment: Sleep Plan: Patient will sleep for more than 5 hours Subjective: N/A Objective: Patient appeared to have slept for more than 5 hours with no incident. 15 minutes security checks ongoing, breathing nonlabored. Patient received PRN Benadryl, Olanzapine and Methocarbamol at 0100 per request. * Plan of Care - Ruthie Myers RN - 08/06/2023 10:37 PM CDT Pt complains about chronic pain, nothing new. Pt denies psych s/s, med compliant, and social with other peers. 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 Pt makes his needs known. * Plan of Care - Mora Leo MSW, JASS - 08/06/2023 12:01 PM CDT [facility] Social Work Progress Note Data: Pt discussed in team this AM. SOC order received. Order indicated pt to comply with any and all treatment recommendations including successful participation in and completion of outpatient chemical dependency an/or mental health treatment depending on the recommendations of the treatment team. [facility] for 6 months Manager Convention checked in with pt that referral sent yesterday to [place]. Legal Status: [facility] Collateral Contacts Collateral Contacts: Other Contact 1, Family/Friend Release of Information?: Yes (verbal) Family/Friend Contact Name: Catalina Alvarado -Mothers Family/Friend Contact or [phone] Other Contact Name : Salvatore Alvarado - Son Other Contact Action Plans:[facility] tx Plan: Expected Discharge Date/Time: 09/04/2023 Disposition: Location: * Plan of Care - Maria E Epps RN - 08/06/2023 9:27 AM CDT [facility] Plan of Care Note Assessment: disturbed thought processes/pain management Plan: patient will participate in unit milieu and safety will be maintained and care plan will be followed. Subjective: I have had some surgeries with insomnia and they are getting my medications straight. I will not go back to using the Xanax anymore I just did it to get some sleep but my medications arereally working now. Objective:Up on the unit and initiated taking a shower and also shaving today. Patient complained of pain at a 3 level and given motrin and robaxin with good results. Patient is social with staff andparticipating in unit milieu. Blood pressure remains elevated which has been a problem for him for many years. Encouraged to drink more water. Patient reports he will not use xanax when he leaves [facility]. Legal Status: probate court hold Orders Placed This Encounter Procedures Legal Status: Probate Court Hold Privilege Level: yellow Safety Observation: q15 minute checks Suicidal Ideation/Homicidal Ideation: Mood: calm Thought Process: relevant; Thought Content: relevant Insight: insight not appropriate to situation Delusions: no delusions; Hallucinations: denies hallucinations Behavior: cooperative MIAHTAPS: 3 Vital Signs: Patient Vitals for the past 24 hrs: BP Temp Temp src Pulse Resp SpO2 08/06/23 0829 (!) 143/96 98.4 ??F (36.9 ??C) Skin 86 18 100 % 08/05/23 1611 (!) 147/92 98 ??F (36.7 ??C) Oral 88 16 98 % 08/05/23 1100 (!) 144/94 -- -- -- -- -- Medical issues: pain issues and hypertension Medications: cooperative with all medications and given prn robaxin and motrin. No additional behavioral or safety concerns noted. --- End of Report --- * Plan of Care - Serena Forte OTR/Sebastien - 08/06/2023 7:11 AM CDT [facility] Occupational Therapy Plan of Care Note Group Name Attendance Minutes Topic Movement/Exercise Attended 30 Movement Game Activity Room/Group Life Skills/IM&R Absent/Refusal Clinic Attended 60 Daily Group Total: 2 OT Evaluation Minutes: Evaluation: All OT Evaluations are found under Consults - OT Notes. Group Daily Assessment Sensory Items/Activities Offered: Grooming: WNL Affect: [place], Brightens with activity Cognitive/Tracking: Appeared to be (see comment), Fallentimber, Fluctuating attention span (lost in thought at times) Social Skills: Quiet manner (more social as clinic group progressed; discussed interest in music, growing up on a farm.) Work Skills: WNL Investment/Participation: WNL Comments: He is receptive when cued and attentive to activities but is more passive in manner. Establishes goal to speak with the provider today. IMTIAZ He/Sebastien 1:1 OT Assessment Minutes: 15 Topic: Grooming Comments: Sensory Assessment According to current staff [...] Assessment Patient Reported Strengths: Patient's Curriculum Track Boosting Mood & Energy Patient's Recovery Goals Patient's Recovery Goals: Yes Patient's Personal Recovery Goal: To find a psychologist that knows more about schizophrenia First Short Term Goal Related to Achieving Personal Goal: Find support groups Goal Status: Set Step 1 in Achieving Goals: Find meds that help with the voices. Step 1 Goal Status: Set Patient's Goals OT Treatment Goals 1. Assess [...] and/or Movement/Exercise. * Plan of Care - Caridad Neves RN - 08/06/2023 4:37 AM CDT Assessment: Sleep Plan: Patient will sleep for more than 5 hours Subjective: N/A Objective: Patient appeared to have slept for more than 5 hours with no incident. 15 minutes security checks ongoing, breathing nonlabored. Patient requested for and received Methocarbamol and Olanzapine at 0145 per request. * Plan of Care - Jaqui Head RN - 08/05/2023 6:40 PM CDT [facility] Plan of Care Note Assessment: Altered thought process/behavior/mood. Plan: Follow plan of care. Maintain safety. Provide therapeutic communication. Subjective: I've had insomnia nearly all my life. I finally found something that worked. I bought xanax on the internet. When I get out of here, I'm going to get that again. They've tried different combos of things that worked for a few days and then it stopped working. Right now, I think I'm on agood combination that works. I do wake up in the middle of the night but I can go back to sleep. If I wake up, I want my robaxin, motrin and zyprexa. Objective: Patient was cooperative with the assessment. He denies psych symptoms. However, he did express that he will try to buy xanax on the internet when he discharges to help him sleep. Manager Convention told him that it's addictive and not a good idea to do this. He said Well, should Isuffer from not sleeping the rest of my life? Gave him prn ibuprofen with his HS meds. He didn't want his desowen cream at bedtime. --- End of Report --- * Plan of Care - Mora Leo MSW, INDUSTRIAL MACHINE SYSTEM TECHNICIAN - 08/05/2023 9:19 AM CDT [facility] Social Work Progress Note Data: Pt discussed in team this AM. Manager Convention facilitated final hearing today at 0900. Pt offered SOC during hearing. Pt's associate attorney shared pt will be under SOC for 6 months and I expected to go to treatment. She shared this means no alcohol, no meth, no threats of suicide or self harm. Pt was provided education on the revocation process by associate attorney as well. Pt will not have [place] order under SOC. Hospital now awaiting SOC order. Manager Convention met with pt afterwards. Pt motivated to get into [facility] treatment directly from hospital. Manager Convention sent chemical health assessment requested to Marsha at [facility] <[email or web address]>. Legal Status: [facility] Petition for DC CD with [facility] Final: 08/04 [email or web address] to ([email or web address])/join ID: [id number] Passcode: [id number] Collateral Contacts Collateral Contacts: Other Contact 1, Family/Friend Release of Information?: Yes (verbal) Family/Friend Contact Name: Catalina Alvarado -Mothers Family/Friend Contact or [phone] Other Contact Name : Salvatore Alvarado - Son Other Contact Action Plans:court process Plan: Expected Discharge Date/Time: 08/06/2023 Disposition: Location: Electronically signed by Mora Leo, FORMING AND ASSEMBLING SUPERVISOR, INDUSTRIAL MACHINE SYSTEM TECHNICIAN at 08/05/2023 2:09 PM CDT * Plan of Care - Ellie Aguilar RN - 08/05/2023 8:12 AM CDT [facility] Plan of Care Note Assessment: Plan of care Plan: Pt will cooperate with plan of care. Subjective: The voices are well controlled Objective: Pt calm and controlled this shift. Reported 3/10 pain. Denied SI/HI. Endorsed AH but reported they are under control. Medication compliant. Made needs known appropriately. Spent time engaging in activities appropriately throughout the day. Watched TV and socialized with peers. Requested/received PRN ibuprofen and Robaxin for pain x2. --- End of Report --- * Plan of Care - Isaura Portillo OTR/L - 08/05/2023 6:42 AM CDT [facility] Occupational Therapy Plan of Care Note Group Name Attendance Minutes Topic Movement/Exercise Absent/Refusal Activity Room/Group Life Skills/IM&R Attended 45 Interacting with others Clinic Attended 45 Daily Group Total: 2 OT Evaluation Minutes: Evaluation: All OT Evaluations are found under Consults - OT Notes. Group Daily Assessment Sensory Items/Activities Offered: Grooming: WNL Affect: WNL, Sad, Serious Cognitive/Tracking: WNL (appeared lost in thought) Social Skills: Quiet manner Work Skills: WNL Investment/Participation: In and out of group (called out by staff) Comments: Pleasant but quiet manner; stepped out of AM life skills session to speak with provider. Sat near peers and staff; attended to conversation but made minimal contributions. IMTIAZ Vega/Sebastien 1:1 OT Assessment Minutes: Topic: Comments: Sensory [...] Assessment Patient Reported Strengths: Patient's Curriculum Track Boosting Mood & Energy Patient's Recovery Goals Patient's Recovery Goals: Yes Patient's Personal Recovery Goal: To find a psychologist that knows more about schizophrenia First Short Term Goal Related to Achieving Personal Goal: Find support groups Goal Status: Set Step 1 in Achieving Goals: Find meds that help with the voices. Step 1 Goal Status: Set Patient's Goals OT Treatment Goals 1. Assess [...] of Care - Alicia Kingsley RN - 08/05/2023 6:28 AM CDT Plan of Care Note Assessment: Sleep Plan: Patient will sleep >5 hours Subjective: N/A Objective: Patient appeared to have slept more than 5 hours during the shift. Patient was given prnrobaxin, benadryl, and Zyprexa at 0130 per request for muscle tension, anxiety and restlessness. Nobehavior or safety concerns noted. Security checks ongoing. --- End of Report --- * Plan of Care - Lesley Mendes RN - 08/04/2023 6:38 PM CDT [facility] Plan of Care Note Problem: Mood Impairment (Psychotic Signs/Symptoms) Goal: Improved Mood Symptoms (Psychotic Signs/Symptoms) Outcome: Progressing Assessment: Unstable Mood Plan: Monitor and document behavior Subjective: I messed up when I did some Meth Objective: Patient feeling anxious about his length of stay here. He told Wr that he was doing fineuntil he tried some meth. Pt said, I got addictive to it the first time I tried Meth. Patient has been in the Dayroom watching television show. He told Wr that he did not want to go in a state hospital but told Wr that he realizes there are consequences he has to face and hoping for the best. --- End of Report --- * Plan of Care - Jesika Welch RN - 08/04/2023 2:42 PM CDT Problem: Mood Impairment (Psychotic Signs/Symptoms) Goal: Improved Mood Symptoms (Psychotic Signs/Symptoms) Outcome: Progressing [facility] Plan of Care Note Assessment: Calm, cooperative Plan: Provide interaction to build trust, encourage verbalization of needs, explain plan of care topatient. Monitor thoughts, behaviors and mood. 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 Behavior controlled, med compliant; denied thought or mood disturbances. He endorsed pain in back rated 4/10, received 750 mg PRN Robaxin at 0814 and 600 mg ibuprofen at 1344. --- End of Report --- * Plan of Care - Mora Leo MSW, JASS - 08/04/2023 9:28 AM CDT [facility] Social Work Progress Note Data: Pt discussed in team this AM. Pt scheduled for final hearing tomorrow at 0900 via [employer]. Legal Status: [facility] Petition for DC CD with [facility] Final: 08/04 [email or web address] ID: [id number] Passcode: [id number] Collateral Contacts Collateral Contacts: Other Contact 1, Family/Friend Release of Information?: Yes (verbal) Family/Friend Contact Name: Catalina Alvarado -Mothers Family/Friend Contact or [phone] Other Contact Name : Salvatore Alvarado - Son Other Contact Action Plans:court process Plan: Expected Discharge Date/Time: 08/06/2023 Disposition: Location: * Plan of Care - Renetta Emery OTR/L - 08/04/2023 6:47 AM CDT [facility] Occupational Therapy Plan of Care Note Group Name Attendance Minutes Topic Movement/Exercise Absent/Refusal Activity Room/Group Life Skills/IM&R Attended 30 Teamwork/team building Clinic Attended 60 Daily Group Total: 2 OT Evaluation Minutes: Evaluation: All OT Evaluations are found under Consults - OT Notes. Group Daily Assessment Sensory Items/Activities Offered: Hot beverage Grooming: WNL Affect: Slight range Cognitive/Tracking: WNL (occasionally lost in thought) Social Skills: WNL Work Skills: WNL Investment/Participation: WNL Comments: Pt. had a friendly, social manner, much conversation about growing up, past jobs, friends, and his kids. Limited work on selected task. MAR Maldonado/L Good effort to participate in PM OT life skills session (was called out of session to speak with staff). Appeared tearful near end of session; left without comment. Renetta Emery, OTR/L 1:1 OT Assessment Minutes: 15 Topic: Checking in with patient, Grooming Comments: Sensory Assessment According to current staff [...] Assessment Patient Reported Strengths: Patient's Curriculum Track Boosting Mood & Energy Patient's Recovery Goals Patient's Recovery Goals: Yes Patient's Personal Recovery Goal: To find a psychologist that knows more about schizophrenia First Short Term Goal Related to Achieving Personal Goal: Find support groups Goal Status: Set Step 1 in Achieving Goals: Find meds that help with the voices. Step 1 Goal Status: Set Patient's Goals OT Treatment Goals 1. Assess [...] of Care - Alicia Kingsley RN - 08/04/2023 6:43 AM CDT Plan of Care Note Assessment: Sleep Plan: Patient will sleep >5 hours Subjective: N/A Objective: Patient appeared to have slept more than 5 hours during the shift. No behavior or safetyconcerns noted. Security checks ongoing. --- End of Report --- * Plan of Care - Brendan Hutchison RN - 08/03/2023 10:44 PM CDT Problem: Adult Behavioral Health Plan of Care Goal: Plan of Care Review Outcome: Progressing [facility] Plan of Care Note Assessment: Plan of care Plan: Patient will continue to verbalize feeling and concerns and cooperate with the plan of care.Ensure safe and appropriate behavior. Provide interaction with patient to build trust. Encourage patient to follow plan of care. Encourage patient to verbalize concerns. Subjective: Can I have my medication at 8:30? Ok Objective: Pt visible on the unit watching TV and kept to himself. Behaviorally controlled and med complaint. Patient denies visual hallucinations, auditory hallucinations, suicidal ideation, homicidal ideation. Calm and cooperative. No aggressive behavior. * Plan of Care - Mora Leo MSW, INDUSTRIAL MACHINE SYSTEM TECHNICIAN - 08/03/2023 8:46 AM CDT [facility] Social Work Progress Note Data: Pt discussed in team this AM. Manager Convention met with pt on the unit. Pt appeared irritable with web content writer that web content writer has not read the apparent exam statement written up by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 flare up, as he has had them before. Patient has been on valacyclovir in the past, for treatment and preventive. Patient stated, Normally I take it so I don't get flare ups, I stopped taking it, and I haven't been taking it here, because my meds haven't been straighten out, but now I need it, I feel it really bad. HO notified. Medication applied to MAR. Patient denies all psych symptoms. --- End of Report --- * Plan of Care - Ahsan Vizcarra - 07/27/2023 4:01 PM CDT I visited Tom today, visited with him, heard his confession, and prayed with and blessed him. He was very grateful. Father Ahsan Vizcarra, Latter-DayEmbryology Professor * Plan of Care - Ashleigh Mcnamara RN - 07/27/2023 10:24 AM CDT Problem: Adult Behavioral Health Plan of Care Goal: Plan of Care Review Outcome: Progressing Goal: Patient-Specific Goal (Individualization) Outcome: Progressing Goal: Adheres to Safety Considerations for Self and Others Outcome: Progressing Goal: Absence of New-Onset Illness or Injury Outcome: Progressing Goal: Optimized Coping Skills in Response to Life Stressors Outcome: Progressing Goal: Develops/Participates in Therapeutic [place] to Support Successful Transition Outcome: Progressing [facility] Plan of Care Note Assessment: Patient has an altered thought process Plan: Patient will have a more organized thought process Subjective: The Benadryl helped me sleep last night just taking the Trazadone by its self does not help I use to take 400mgs of Trazadone. Objective: Patient is calm and controlled out on the unit. He denies any thoughts of self harm or harm to others. Denies AH/VH at this time. He ate 100 percent of his breakfast and lunch. He took hisscheduled medications. He c/o low back pain he was given PRN Robaxin,this was somewhat helpful. --- End of Report --- * Plan of Care - Mora Leo MSW, INDUSTRIAL MACHINE SYSTEM TECHNICIAN - 07/27/2023 9:55 AM CDT [facility] Social Work Progress Note Data: Pt discussed in team this AM. Manager Convention checked in with pt on the unit to review prelim hearing scheduled for 07/27 @ 1 PM. Pt aware.Pt somewhat brief and dismissive. Manager Convention put email out to Angeline Heller, [email or web address] with Dionicio Rossy SS to confirm zoom link for tomorrow's hearing. Cc'd coverage SW. Legal Status: [facility] Petition for DC CD with [facility] Pre-trial: 07/27 @ 1 PM Final: 08/04 Collateral Contacts Collateral Contacts: Other Contact 1, Family/Friend Release of Information?: Yes (verbal) Family/Friend Contact Name: Catalina Alvarado -Mothers Family/Friend Contact or [phone] Other Contact Name : Salvatore Alvarado - Son Other Contact Action Plans: petition for commitment Plan: Expected Discharge Date/Time: 08/06/2023 Disposition: Location: * Plan of Care - Mely Frost OTR/L - 07/27/2023 6:56 AM CDT [facility] Plan of Care Note Group Name Attendance Minutes Topic Movement/Exercise Attended 30 Movement Game Activity Room/Group Life Skills/IM&R Attended 60 Art therapy Clinic Absent/Refusal Daily Group Total: 2 OT Evaluation Minutes: Evaluation: All OT Evaluations are found under Consults - OT Notes. Group Daily Assessment Sensory Items/Activities Offered: Tea Grooming: WNL Affect: Brightens with activity Cognitive/Tracking: Fluctuating attention span Social Skills: WNL Work Skills: WNL Investment/Participation: WNL Comments: Patient was focused and engaged in group game, pleasant manner. Becomes more animated in clinic group inconversation with peer K.L. about work and other similarieties. When peer is not interacting with patient, pt is calm controlled and focused. MAR Raya/L Patient expressed concern about having memory issues and getting dementia like his father. Mely Frost OTR/L 1:1 OT Assessment Minutes: 15 Topic: Grooming Comments: Sensory Assessment According to current staff [...] Assessment Patient Reported Strengths: Patient's Curriculum Track Boosting Mood & Energy Patient's Recovery Goals Patient's Recovery Goals: Yes Patient's Personal Recovery Goal: To find a psychologist that knows more about schizophrenia First Short Term Goal Related to Achieving Personal Goal: Find support groups Goal Status: Set Step 1 in Achieving Goals: Find meds that help with the voices. Step 1 Goal Status: Set Patient's Goals OT Treatment Goals 1. Assess [...] and/or Movement/Exercise. * Plan of Care - Caridad Neves RN - 07/27/2023 2:36 AM CDT Assessment: Sleep Plan: Patient will sleep for more than 5 hours Subjective: N/A Objective: Patient appeared to have slept for more than 5 hours with no incident. 15 minutes security checks ongoing, breathing nonlabored. * Plan of Care - Rufina Jarquin RN - 07/26/2023 10:40 PM CDT [facility] Plan of Care Note Assessment: Altered mental status/mood/anxietyBehavior Plan: The pt will follow the care plan, Maintain safety Subjective: They are getting lower and very minimal now. I need my PRN Benadryl Objective: Met the pt in the day room. The pt was cooperative with assessment questions.. Compliantwith medications. Denies AH/VH/SI/HI. Visible on the unit and watched TV in day room. Endorsed auditory hallucination but stated it is getting better. Behaviorally controlled. Requested for PRN Benadryl and it was given. Ate 100% of his dinner. 15 minutes safety check ongoing. --- End of Report --- * Plan of Care - Ahsan Vizcarra - 07/26/2023 4:12 PM CDT Today, I attempted to visit Tom, but due to his involvement in group therapy, I opted not to followthrough with my intended ministry at the time. I intend to see him tomorrow (Wednesday, 07/26). Father Ahsan Vizcarra, Akhil Bray * Plan of Care - Cece Trujillo RN - 07/26/2023 11:04 AM CDT Problem: Mood Impairment (Psychotic Signs/Symptoms) Goal: Improved Mood Symptoms (Psychotic Signs/Symptoms) Outcome: Progressing [facility] Plan of Care Note Assessment: anxiety Plan: Monitor for signs and symptoms of anxiety and medicate as needed. Provide interaction with ptto build trust. Encourage pt to verbalize concerns. Continue to assess and document. Discussed planof care with patient, provider, and drug abuse social worker. Subjective: Pt stated Any way I can get some pop in here? Objective: Pt up on unit, making some calls. Pt given gift shop number to have his mom order some snacks for him to be delivered. Pt was medication compliant. Pt denies wanting to harm self or others. Pt denies any depression or SI. Pt denies any hallucinations or delusions. Pt reported some trouble sleeping, reminded he has prn benadryl and trazadone available. CIWA 0 and 0. Pt given prn voltaren cream. Pt has court 07/27. CIWA discontinued. --- End of Report --- * Plan of Care - Mora Leo MSW, JASS - 07/26/2023 9:07 AM CDT [facility] Social Work Progress Note Data: Pt discussed in team this AM. Manager Convention reviewed pt's chart from the weekend. Pt has hearing scheduledfor 07/27 @ 1 PM for civil commitment petition. Legal Status: [facility] Petition for DC CD with [facility] Pre-trial: 07/27 @ 1 PM Final: 08/04 Collateral Contacts Collateral Contacts: Other Contact 1, Family/Friend Release of Information?: Yes (verbal) Family/Friend Contact Name: Catalina Alvarado -Mothers Family/Friend Contact or [phone] Other Contact Name : Salvatore Alvarado - Son Other Contact Action Plans: petition for commitment Plan: Expected Discharge Date/Time: 08/06/2023 Disposition: Location: * Plan of Care - Kristin Bangura COTA/L - 07/26/2023 7:20 AM CDT [facility] Occupational Therapy Plan of Care Note Group Name Attendance Minutes Topic Movement/Exercise Absent/Refusal Activity Room/Group Life Skills/IM&R Attended 75 Social skills Clinic Attended 30 Daily Group Total: 2 OT Evaluation Minutes: Evaluation: All OT Evaluations are found under Consults - OT Notes. Group Daily Assessment Sensory Items/Activities Offered: Grooming: WNL Affect: Brightens with activity Cognitive/Tracking: WNL Social Skills: WNL Work Skills: WNL Investment/Participation: WNL Comments: Pt. followed multi step directions with good follow through. Noted hand tremors, pt. expressed frustration with this, reviewed some safety techniques to use when carrying food and beverages( pt. not receptive to some of suggestions indicating he wasn't that old to be utilizing some techniques.) JERRY Maldonado L.S.- pleasant and social manner with peers, tracking, good comfortlevel. JERRY Maldonado 1:1 OT Assessment Minutes: 15 Topic: Grooming Comments: Sensory Assessment According to current staff [...] Assessment Patient Reported Strengths: Patient's Curriculum Track Boosting Mood & Energy Patient's Recovery Goals Patient's Recovery Goals: Yes Patient's Personal Recovery Goal: To find a psychologist that knows more about schizophrenia First Short Term Goal Related to Achieving Personal Goal: Find support groups Goal Status: Set Step 1 in Achieving Goals: Find meds that help with the voices. Step 1 Goal Status: Set Patient's Goals OT Treatment Goals 1. Assess [...] and/or Movement/Exercise. * Plan of Care - Cindy Newell RN - 07/26/2023 6:25 AM CDT Plan of Care Note Assessment: Sleep Plan: Patient will sleep > 5 hours Subjective: N/A Objective: Patient appeared to have slept more than 5 hours during the shift. PRN trazodone PO given for c/o insomnia. CIWA was 0. No behavioral or safety concerns noted. Safety checks ongoing. --- End of Report --- * Plan of Care - Brendan Hutchison RN - 07/25/2023 10:34 PM CDT Problem: Mood Impairment (Psychotic Signs/Symptoms) Goal: Improved Mood Symptoms (Psychotic Signs/Symptoms) Outcome: Progressing Problem: Adult Behavioral Health Plan of Care Goal: Plan of Care Review Outcome: [facility] Plan of Care Note Assessment: Plan of care Plan: Patient will continue to verbalize feeling and concerns and cooperate with the plan of care.Ensure safe and appropriate behavior. Provide interaction with patient to build trust. Encourage patient to follow plan of care. Encourage patient to verbalize concerns. Subjective: I used to take 400 mg of trazodone I think 50 mg its not enough Objective: Pt visible on the unit watching TV and kept to himself. Behaviorally controlled and med complaint. Patient endorses auditory hallucinations, denies visual hallucinations. Calm and cooperative. CIWA 0. No aggressive behavior. * Plan of Care - Cece Trujillo RN - 07/25/2023 9:11 AM CDT Problem: Mood Impairment (Psychotic Signs/Symptoms) Goal: Improved Mood Symptoms (Psychotic Signs/Symptoms) Outcome: [facility] Plan of Care Note Assessment: anxiety Plan: Monitor for signs and symptoms of anxiety and medicate as needed. Provide interaction with pt to build trust. Encourage pt to verbalize concerns. Continue to assess and document. Discussed plan of care with patient, provider, and drug abuse social worker. Subjective: Pt stated I took that zyprexa with the benadryl last night and it worked great. Objective: Pt is up on unit, a bit restless. Pt watching tv this am. Pt was medication compliant. Pt given scheduled meds for back pain 07/15. Pt denies wanting to harm self or others. Pt made above subjective statement after reporting difficulty sleeping last night. CIWA 0 and 0. Pt requesting med c onsult for possible hernia near his belly button, CHERYL Braswell notified. --- End of Report --- * Plan of Care - Alicia Kingsley RN - 07/25/2023 5:53 AM CDT Plan of Care Note Assessment: Sleep Plan: Patient will sleep >5 hours Subjective: N/A Objective: Patient appeared to have slept more than 5 hours during the shift. Zyprexa 10 mg given at 2333 per request for restlessness/anxiety. No behavior or safety concerns noted. Security checks ongoing. CIWA score of 2. --- End of Report --- * Plan of Care - Brendan Hutchison RN - 07/24/2023 10:28 PM CDT Problem: Mood Impairment (Psychotic Signs/Symptoms) Goal: Improved Mood Symptoms (Psychotic Signs/Symptoms) Outcome: Progressing Problem: Adult Behavioral Health Plan of Care Goal: Plan of Care Review Outcome: Progressing [facility] Plan of Care Note Assessment: Plan of care Plan: Patient will continue to verbalize feeling and concerns and cooperate with the plan of care.Ensure safe and appropriate behavior. Provide interaction with patient to build trust. Encourage patient to follow plan of care. Encourage patient to verbalize concerns. Subjective: I'm good they scheduled the flexeril so I don't have to ask for it I want buy sodacan I use my money to do that? Objective: Pt visible on the unit watching TV and kept to himself. Behaviorally controlled and med complaint. Patient endorses auditory hallucinations, denies visual hallucinations. Calm and cooperative. CIWA 2 and 1. Denied pain. No aggressive behavior. * Plan of Care - Diane Omalley RN - 07/24/2023 10:33 AM CDT [facility] Plan of Care Note Assessment: Altered thought process/behavior/mood. Plan: Follow plan of care. Maintain safety. Provide therapeutic communication. Subjective: I felt demons holding me down wanting to get me ,I fought for my life,but benadryl help me a lot I was able to sleep. Objective: Patient stated had frightening thoughts last night and demons were coming to get him , when asked what the demons were saying he said I did not here them I felt them. Patient compliant with his medication CIWA within normal limits,had shower and ate breakfast.Pt denies thought of harmingself or others. --- End of Report --- * Plan of Care - Caridad Neves RN - 07/24/2023 5:37 AM CDT Assessment: Sleep Plan: Patient will sleep for more than 5 hours Subjective: N/A Objective: Patient appeared to have slept for more than 5 hours with no incident. 15 minutes security checks ongoing, breathing nonlabored. Patient requested for Benadryl at 0210 and then went back to sleep. CIWA score is 0. * Plan of Care - Brendan Hutchison RN - 07/23/2023 10:10 PM CDT Problem: Mood Impairment (Psychotic Signs/Symptoms) Goal: Improved Mood Symptoms (Psychotic Signs/Symptoms) Outcome: Progressing Problem: Adult Behavioral Health Plan of Care Goal: Plan of Care Review Outcome: Progressing [facility] Plan of Care Note Assessment: Plan of care Plan: Patient will continue to verbalize feeling and concerns and cooperate with the plan of care.Ensure safe and appropriate behavior. Provide interaction with patient to build trust. Encourage patient to follow plan of care. Encourage patient to verbalize concerns. Subjective: I hear voices when I'm alone in my room I have pain can I have Flexeril? I want benadryl to help me sleep what's the dose of Seroquel Objective: Pt visible on the unit watching TV and kept to himself. Behaviorally controlled and med complaint.PRN flexeril and benadryl given per pt request. Patient endorses auditory hallucinations, denies visual hallucinations. Calm and cooperative. CIWA 0. Denied pain. No aggressive behavior. * Plan of Care - Ashleigh Mcnamara RN - 07/23/2023 9:27 AM CDT Problem: Mood Impairment (Psychotic Signs/Symptoms) Goal: Improved Mood Symptoms (Psychotic Signs/Symptoms) Outcome: Progressing [facility] Plan of Care Note Assessment: Patient has an altered thought process Plan: Patient will have a more organized thought process Subjective: What time do I discharge today. I have to go and turn my self in for a DUI after I'm discharged. Objective: Patient is behaviorally controlled;sleeps most of the morning. He spends most of the afternoon out on the unit watching TV. He denies any thoughts of self harm or harm to others. Denies AH/VH at this time. He ate 100 percent of his breakfast and lunch. He c/o low back pain he has been given PRN Flexeril x2 this shift. He took his scheduled medications with no issues. Patient was given a copy of his court paper work and handled this well. --- End of Report --- * Plan of Care - Mora Leo MSW, INDUSTRIAL MACHINE SYSTEM TECHNICIAN - 07/23/2023 8:40 AM CDT [facility] Social Work Progress Note Data: Pt discussed in team this AM. Email received back from [email or web address] <[email or web address]> prior tohold expiration [facility] is supporting petition and [facility]. She will email web content writer copy of probate court hold order. Manager Convention put out call to pt's mother, Catalina ([phone]) to review [facility]'s support of petition. She is happy to hear this. Manager Convention shared plans to call her early next week. Manager Convention met with pt on the unit to review supported petition. Manager Convention shared court date on Wednesday and gave pt his copy of petition pwk. Pt accepting of information. Legal Status: [facility] Petition for DC CD with [facility] Pre-trial: 07/29 @ 1 PM Collateral Contacts Collateral Contacts: Other Contact 1, Family/Friend Release of Information?: Yes (verbal) Family/Friend Contact Name: Catalina Alvarado -Mothers Family/Friend Contact or [phone] Other Contact Name : Salvatore Alvarado - Son Other Contact Action Plans: petition for commitment Plan: Expected Discharge Date/Time: 08/06/2023 Disposition: Location: * Plan of Care - Thelma Aquino COTA/L - 07/23/2023 7:06 AM CDT [facility] Occupational Therapy Plan of Care Note Group Name Attendance Minutes Topic Movement/Exercise Attended 30 Movement Cards Activity Room/Group Life Skills/IM&R Absent/Refusal Clinic Absent/Refusal Daily Group Total: 1 OT Evaluation Minutes: Evaluation: All OT Evaluations are found under Consults - OT Notes. Group Daily Assessment Sensory Items/Activities Offered: Chewing Gum Grooming: Fair attention to grooming Affect: Brightens with activity Cognitive/Tracking: WNL Social Skills: Mainly interacted with staff Work Skills: Investment/Participation: WNL Comments: 1:1 OT Assessment Minutes: 15 Topic: Group attendance Comments: Sensory Assessment According to current staff [...] Assessment Patient Reported Strengths: Patient's Curriculum Track Boosting Mood & Energy Patient's Recovery Goals Patient's Recovery Goals: Yes Patient's Personal Recovery Goal: To find a psychologist that knows more about schizophrenia First Short Term Goal Related to Achieving Personal Goal: Find support groups Goal Status: Set Step 1 in Achieving Goals: Find meds that help with the voices. Step 1 Goal Status: Set Patient's Goals OT Treatment Goals 1. Assess [...] and Recovery (IM&R), Unit, Grooming and/or Movement/Exercise. I have evaluated this patient and reviewed all related documentation. IMTIAZ Carpio/Sebastien 07/23/2023 3:25 PM * Initial Assessments - Kelin Quintero OTR/Sebastien - 07/23/2023 6:56 AM CDT [facility] OT Initial Assessment Diagnosis: No diagnosis found. 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 Initial Assessment Patient Stressors: Increase in psychiatric symptoms, Poor sleep (fear) Initial Assessment Patient Coping Skills: Music, Use chemicals (taking medications) Favorite Leisure/hobbies/exercise: music . How can we make your hospital stay more comfortable? See sensory section below . Sensory Section Patient noticed sensory sensitivities to Patient noticed strong attractions to Patient noticed changes or concerns with OT observed sensory sensitivities to OT observed strong attractions to OT observed changes or concerns with Do you experience pain or migraine? Location of pain or migraine? Duration of pain or migraine? Do you have a trauma history? Patient has a trauma history of Do you feel your sensory sensitivities affect your daily life activities? Sensory screen offered to patient Initial sensory items/activities receptive and preferred Sound Machine (waiting to give sound machine due to suicide precautions) Initial sensory items/activities receptive and preferred specifics Patient's initial report stress/anxiety before: Patient's initial report stress/anxiety after: Additional comments Patient chosen programming curriculum track: Boosting Mood & Energy Patient's Goal for this Hospitalization: please refer to patient's recovery goal below. Subjective: There's a green light on me and my family. I had the gun against my head. Patient's Recovery Goals Patient's Recovery Goals: Yes Patient's Personal Recovery Goal: To find a psychologist that knows more about schizophrenia First Short Term Goal Related to Achieving Personal Goal: Find support groups Goal Status: Set Step 1 in Achieving Goals: Find meds that help with the voices. Step 1 Goal Status: Set Assessment Nicanor was cooperative, grooming appeared unattended to, eye contact was limited, affect/mood appeared sad, energy level appeared low, speech/responses were delayed, thinking/processing appeared preoccupied, coping skills appeared poor, insight appeared poor, was oriented to OT groups and encouraged to attend, will be further assessed in OT groups as able, and based on this assessment, interventions for [...] and plan. --- End of Report --- * Plan of Care - Caridad Neves RN - 07/23/2023 4:57 AM CDT Assessment: Sleep Plan: Patient will sleep for more than 5 hours Subjective: N/A Objective: Patient appeared to have slept for more than 5 hours with no incident. 15 minutes security checks ongoing, breathing nonlabored. Patient received Acetaminophen at 0630 for 5/10 back and shoulder pain. CIWA score was 0. Patient expressed some anxiety in regards to hold expiring today and possible discharge. Patient advised to discuss concerns with the Psychiatrist and Family Living Educator. * Plan of Care - Anca Finney RN - 07/22/2023 4:56 PM CDT [facility] Plan of Care Note Assessment: General plan of care Plan: Will maintain safety and follow plan of care Subjective: I don't know why I'm just so hungry. About hallucinations: no visual, voices. They always are (mean) Objective: Denies any pain, SI, or VH. Met with pt in hallway, looks somewhat disheveled, intense eye contact, reporting feeling depressed and anxious, congruent with affect. Gave Flexeril and Zyprexa PRN at 1630 with relief. CIWA at 1600 was 9 with anxiety, visible sweating on forehead and tremors. Last CIWA at 2130 was 3. Vitals: 07/22/23 1622 BP: 136/88 Pulse: 85 Resp: 16 Temp: 98.6 ??F (37 ??C) Reports medication regimen is effective, denies any SE's or interactions. Compliant with medications and assessments. --- End of Report --- * Plan of Care - Cece Trujillo RN - 07/22/2023 12:50 PM CDT Problem: Mood Impairment (Psychotic Signs/Symptoms) Goal: Improved Mood Symptoms (Psychotic Signs/Symptoms) Outcome: Progressing [facility] Plan of Care Note Assessment: plan of care Plan: Provide interaction with pt to build trust. Encourage pt to verbalize concerns. Continue to assess and document. Discussed plan of care with patient, provider, and drug abuse social worker. Subjective: Pt stated I'd like to get [...] --- * Plan of Care - Mora Leo, FORMING AND ASSEMBLING SUPERVISOR, INDUSTRIAL MACHINE SYSTEM TECHNICIAN - 07/22/2023 9:39 AM CDT [facility] Social Work Progress Note Data: Pt discussed in team this AM. Manager Convention put out call to pt's mother, Catalina ([phone]). Catalina is in support of petition for commitment. Manager Convention submitted petition for commitment to [employer] . Manager Convention called in petition and was instructed to email petition to < > < >; < >. Manager Convention sent records for review due to tight hold. Manager Convention sent follow up email to [facility] . Legal Status: 72 hour hold expires on 07/22 @ 1212 PM Collateral Contacts Collateral Contacts: Other Contact 1, Family/Friend Family/Friend Contact Name: Carlos Alvarado - Parents Family/Friend Contact or [phone] Other Contact Name : Salvatore Alvarado - Son Other Contact Action Plans: petition for commitment Plan: Expected Discharge Date/Time: 08/06/2023 Disposition: Location: Addendum: Manager Convention called [facility] back and spoke with srinierBriseida. Briseida confirms receipt of petition and that she has already tried to call pt but he refused to speak to her. Briseida states she also has tried to call mom but mom did not answer. Manager Convention emailed her son, Salvatore, #. Manager Convention sent additional records from pt's time on [facility] at [facility]. * Plan of Care - Isaura Portillo, OTR/Sebastien - 07/22/2023 7:09 AM CDT [facility] Occupational Therapy Plan of Care Note [...] Finney RN - 07/21/2023 4:20 PM CDT [facility] Plan of Care Note Assessment: General [...] Improved Mood Symptoms (Psychotic Signs/Symptoms) Outcome: Progressing [facility] Plan of Care Note Assessment: plan of care Plan: Provide interaction with pt to build trust. Encourage pt to verbalize concerns. Continue to assess and document. Discussed plan of care with patient, provider, and drug abuse social worker. Subjective: Pt stated I just don't know [...] * Plan of Care - Kyleigh Barnard OTR/Sebastien - 07/21/2023 8:53 AM CDT [facility] Occupational Therapy Plan of Care Note [...] and/or Movement/Exercise. * Initial Assessments - Mora Leo, FORMING AND ASSEMBLING SUPERVISOR, INDUSTRIAL MACHINE SYSTEM TECHNICIAN - 07/21/2023 8:50 AM CDT [facility] Social Work Initial Assessment Admission Date/Time: 07/20/2023 3:13 PM Age: 57 y.o. Attending Practitioner: Kristin Rutledge PA-C [place]: [place] Admitting Diagnosis: No diagnosis found. Reason for admit: Nicanor Alvarado is a 57 y.o. male who has been admitted to [facility] inpatient Mental Health. The patient is being [...] He was stabilized medically and transferred to [facility] for psychiatric stabilization. Legal Status: On Admission: Voluntary Current: 72 hour hold Committed: No Current Order Received in Chart: n/a Legal Issues: DUI in Living Situation: Parents Alternative Decision Maker: No Collateral Contacts Collateral Contacts: Other Contact 1, Family/Friend Family/Friend Contact Name: Carlos Alvarado - Parents Family/Friend Contact or [phone] Other Contact Name : Salvatore Alvarado - Son Other Contact Financial Insurance: [employer] Secondary Insurance: N/A Employment/Income: Psychiatric/Substance Use Disorder/Medical History Patient endorses a past psychiatric diagnosis of Bipolar I Disorder, Schizophrenia and Major Depressive Disorder. Patient's chart review notes a history of inpatient psychiatric admissions in the past. Most recent admissions were 05/07/23-05/10/23 on [facility], 09/10/2015 to 09/18/2015 ([place] [address]) and 09/23/2015- 10/07/2015 ([facility]). Patient endorses regular use of Methamphetamine and Xanax in which hepurchases online. Please refer to H&P for medical summary. Data Manager Convention met with pt on the unit. Manager Convention introduced self and explained SW role. Pt [...] community provider, does not identify as having DC, No readiness to engage in treatment) DC Treatment Recommendations for Inpatient/Outpatient: Development of recovery [...] Rutledge PA-C - 07/20/2023 4:40 PM CDT [facility] DEPARTMENT OF PSYCHIATRY PROJ MGR INTAKE Nicanor Alvarado Admission Date and Time: [...] medications and ordered Seroquel 100mg po TID, [id number] po TID, Zyprexa 10mg po BID PRN, and CIWA protocol w PRN Valium and PRN Clonidine. See attending team's Admission Note for further history, diagnosis and treatment planning. Milieu Management: Admit to: NH4 Legal: 72 hour hold History of Present Illness Nicanor Alvarado is a 57 y.o. male who has been admitted to [facility] inpatient Mental Health. The patient is being [...] He was stabilized medically and transferred to [facility] for psychiatric stabilization. Today, although [...] Ferrari RN - 07/20/2023 4:29 PM CDT [facility] Plan of Care Note Assessment: Alteration in [...] plan of care with patient, provider, and drug abuse social worker. Subjective: Pt stated I didn't try to hurt myself, I was messed up on meth. Objective: Pt admitted to unit from at 1500. VS obtained, pt given tour of unit. Pt shown to hisroom. Pt is on 72 hr hold. Pt denies any SI, contracts for safety. Pt given some snacks and fluids.Pt denies any hallucinations or delusions. Pt reports meth use on weekends and stated he drinks 14 shots of [place] connor liquor a day. Pt signed DORA for his son. --- End of Report --- documented in this encounter Administered Medications Inactive Administered Medications - up to 3 most recent administrations Medication Order MAR Action Action Date Dose Rate Site acetaminophen (TYLENOL) tablet 1,000 mg 1,000 mg, Oral, TID, First dose on Wed07/23/23 at 1400, Until Discontinued Given 08/05/2023 8:01 AM CDT 1,000 mg Given 08/04/2023 8:27 PM CDT 1,000 mg Given 08/04/2023 1:14 PM CDT 1,000 mg acetaminophen (TYLENOL) tablet 1,000 mg 1,000 mg, Oral, DAILY PRN, Pain/Fever, Starting on Wed07/26/23 at 1208, Until Wed08/10/23 at 1605 Given 08/10/2023 10:51 AM CDT 1,000 mg Given 08/09/2023 12:53 PM CDT 1,000 mg Given 08/08/2023 4:39 PM CDT 1,000 mg acetaminophen (TYLENOL) tablet 1,000 mg 1,000 mg, Oral, TID, First dose on Wed08/10/23 at 2100, Until Discontinued Given 08/23/2023 8:12 AM CDT 1,000 mg Given 08/22/2023 8:19 PM CDT 1,000 mg Given 08/22/2023 1:44 PM CDT 1,000 mg acetaminophen (TYLENOL) tablet 1,000 mg 1,000 mg, Oral, BID PRN, Pain/Fever, Starting on Wed08/10/23 at 1552, Until Wed08/11/23 at 0051, For 9 hours, Do not give two acetaminophen containing medications within 4 hours of each other. Maximum dose acetaminophen = 4,000 mg daily from all sources Given 08/10/2023 5:04 PM CDT 1,000 mg acetaminophen (TYLENOL) tablet 1,000 mg 1,000 mg, Oral, DAILY PRN, Pain/Fever, Starting on Wed08/11/23 at 0643, Until Wed08/23/23 at 1538 Given 08/23/2023 3:31 AM CDT 1,000 mg Given 08/21/2023 4:13 AM CDT 1,000 mg Given 08/19/2023 4:52 AM CDT 1,000 mg acetaminophen (TYLENOL) tablet 650 mg 650 mg, Oral, Q6H PRN, Pain/Fever, Initially give acetaminophen for patient with mild pain., Starting on Wed07/20/23 at 1619, Until Wed07/23/23 at 1213, Initially give acetaminophen for patient with mild pain. Acetaminophen may be given WITH other pain medications as adjunct pain relief. Do not give two acetaminophen containing medications within 4 hours of each other. Given 07/23/2023 6:31 AM CDT 650 mg Given 07/22/2023 11:10 PM CDT 650 mg Given 07/22/2023 8:59 AM CDT 650 mg amitriptyline (ELAVIL) tablet 100 mg 100 mg, Oral, HS, First dose (after last modification) on Wed08/02/23 at 2100, Until Discontinued Given 08/22/2023 8:20 PM CDT 100 mg Given 08/21/2023 8:15 PM CDT 100 mg Given 08/20/2023 8:34 PM CDT 100 mg amitriptyline (ELAVIL) tablet 50 mg 50 mg, Oral, HS, First dose on Wed07/26/23 at 2100, Until Discontinued Given 08/01/2023 8:16 PM CDT 50 mg Given 07/31/2023 8:12 PM CDT 50 mg Given 07/30/2023 8:15 PM CDT 50 mg amLODIPine (NORVASC) tablet 5 mg 5 mg, Oral, DAILY, First dose on Wed07/21/23 at 1730, Until Discontinued Given 08/23/2023 8:11 AM CDT 5 mg Given 08/22/2023 8:06 AM CDT 5 mg Given 08/21/2023 8:58 AM CDT 5 mg aspirin chewable tablet 81 mg 81 mg, Oral, DAILY, First dose on Wed07/22/23 at 0900, Until Discontinued Given 08/23/2023 8:12 AM CDT 81 mg Given 08/22/2023 8:08 AM CDT 81 mg Given 08/21/2023 8:58 AM CDT 81 mg atorvastatin (LIPITOR) tablet 20 mg 20 mg, Oral, EVENING, First dose (after last modification) on Wed07/21/23 at 1800, Until Discontinued Given 08/22/2023 5:15 PM CDT 20 mg Given 08/21/2023 5:07 PM CDT 20 mg Given 08/20/2023 4:36 PM CDT 20 mg benztropine (COGENTIN) tablet 1 mg 1 mg, Oral, BID, First dose on Wed07/26/23 at 1230, Until Discontinued, Indications: Drug-Induced Extrapyramidal Reaction Given 07/27/2023 7:53 AM CDT 1 mg Given 07/26/2023 8:27 PM CDT 1 mg Given 07/26/2023 1:30 PM CDT 1 mg bisacodyl (DULCOLAX) rectal suppository 10 mg 10 mg, Rectal, DAILY PRN, Constipation, No stool in the last 3 days, Starting on Wed07/20/23 at 1618, Until Wed08/23/23 at 1538, Cumulative bowel medication orders. Administer based on [...] spasms, Starting on Wed07/21/23 at 1703, Until Wed07/24/23 at 1637, Indications: Muscle Spasm Given 07/24/2023 3:01 PM CDT 1 0 mg Given 07/24/2023 9:49 AM CDT 10 mg Given 07/23/2023 8:48 PM CDT 10 mg cyclobenzaprine (FLEXERIL) tablet 10 mg 10 mg, Oral, TID, First dose (after last modification) on 07/24/23 at 2100, Until Discontinued, Indications: Muscle Spasm Given 07/26/2023 1:40 PM CDT 10 m g Given 07/26/2023 8:14 AM CDT 10 mg Given 07/25/2023 8:33 PM CDT 10 mg desonide (DESOWEN) 0.05 % cream Topical, BID, First dose on Wed07/28/23 at 2100, Apply topically to (specify site) affected skin on face. Hazardous waste disposal required. Given 08/23/2023 8:12 AM CDT Other (Comment) Given 08/22/2023 8:08 AM CDT Fa ce Given 08/21/2023 8:58 AM CDT Fa ce diclofenac (VOLTAREN) gel 2 g 2 g, Topical, QID PRN, Other, shoulder/neck pain, Starting on Wed07/23/23 at 1237, Until Wed08/23/23 at 1538, Apply topically to (specify site) left shoulder/neck. Hazardous waste disposal required. Given 08/22/2023 8:47 PM CDT 2 g Back Given 08/22/2023 8:09 AM CDT 2 g Ot her (Comment) Given 08/21/2023 8:18 PM CDT 2 g Ba ck diphenhydrAMINE (BENADRYL) capsule 50 mg 50 mg, Oral, HS PRN, MAY REPEAT x 1, Sleep, Starting on Wed07/23/23 at 1701, Until Wed07/25/23 at 1452 Given 07/24/2023 9:53 PM CDT 50 mg Given 07/24/2023 2:10 AM CDT 50 mg Given 07/23/2023 9:33 PM CDT 50 mg diphenhydrAMINE (BENADRYL) capsule 50 mg 50 mg, Oral, HS PRN, Itching, Rash, Starting on Wed07/25/23 at 1450, Until Wed07/26/23 at 1452 Given 07/25/2023 8:46 PM CDT 50 mg diphenhydrAMINE (BENADRYL) capsule 50 mg 50 mg, Oral, HS PRN, MAY REPEAT x 1, Sleep, Starting on Wed07/26/23 at 2131, Until Wed07/27/23 at 0716 Given 07/26/2023 9:52 PM CDT 50 mg diphenhydrAMINE (BENADRYL) capsule 50 mg 50 mg, Oral, HS, First dose on Wed07/27/23 at 2100, Until Discontinued, Indications: Insomnia Given 08/22/2023 8:20 PM CDT 50 mg Given 08/21/2023 8:14 PM CDT 50 mg Given 08/20/2023 8:33 PM CDT 50 mg diphenhydrAMINE (BENADRYL) capsule 50 mg 50 mg, Oral, DAILY PRN, Other, sleep, Starting on Wed07/27/23 at 1306, Until Wed08/23/23 at 1538, May use if initial scheduled Benadryl ineffective, Indications: sleep Given 08/23/2023 1:21 AM CDT 50 mg Given 08/22/2023 1:24 AM CDT 50 mg Given 08/21/2023 1:05 AM CDT 50 mg folic acid tablet 1 mg 1 mg, Oral, DAILY, First dose on Wed07/22/23 at 0900, Until Discontinued Given 08/23/2023 8:12 AM CDT 1 mg Given 08/22/2023 8:07 AM CDT 1 mg Given 08/21/2023 8:58 AM CDT 1 mg gabapentin (NEURONTIN) capsule 1,200 mg 1,200 mg, Oral, TID, First dose (after last modification) on Wed07/26/23 at 2100, Until Discontinued, Indications: RLS / chronic pain Given 08/23/2023 8:12 AM CDT 1,200 mg Given 08/22/2023 8:19 PM CDT 1,200 mg Given 08/22/2023 1:43 PM CDT 1,200 mg gabapentin (NEURONTIN) capsule 300 mg 300 mg, Oral, TID, First dose (after last modification) on Wed07/20/23 at 2100, Until Discontinued Given 07/21/2023 1:27 PM CDT 300 mg Given 07/21/2023 8:14 AM CDT 300 mg Given 07/20/2023 8:06 PM CDT 300 mg gabapentin (NEURONTIN) capsule 600 mg 600 mg, Oral, TID, First dose (after last modification) on Wed07/21/23 at 2100, Until Discontinued Given 07/24/2023 2:22 PM CDT 600 mg Given 07/24/2023 8:39 AM CDT 600 mg Given 07/23/2023 8:17 PM CDT 600 mg gabapentin (NEURONTIN) capsule 900 mg 900 mg, Oral, TID, First dose (after last modification) on Wed07/24/23 at 2100, Until Discontinued, Indications: RLS / chronic pain Given 07/26/2023 1:3 8 PM CDT 900 mg Given 07/26/2023 8:12 AM CDT 900 mg Given 07/25/2023 8:32 PM CDT 900 mg ibuprofen (MOTRIN) tablet 600 mg 600 mg, Oral, Q6H PRN, Fever, Pain, Starting on Wed08/04/23 at 1308, Until Wed08/09/23 at 1251, Give with food or milk. Given 08/09/2023 7:45 AM CDT 600 mg Given 08/08/2023 8:08 PM CDT 600 mg Given 08/08/2023 3:06 AM CDT 600 mg lidocaine (ASPERCREAM) 4 % patch 1 Patch 1 Patch, Transdermal, DAILY, First dose on Bhavna 07/22/23 at 1315, Until Discontinued, Apply patch to area of back pain. Patch may remain in place for up to 12 hours in any 24 hour period, i.e. patches placed at 0800 should be removed at 2000. May cut patch to appropriate size. Patch Applied 07/26/2023 8:12 AM CDT 1 Patch Back Patch Applied 07/25/2023 8:06 AM CDT 1 Patch Back Patch Applied 07/24/2023 8:41 AM CDT 1 Patch Lower Back lidocaine (ASPERCREAM) 4 % patch 1 Patch 1 Patch, Transdermal, DAILY, First dose on Wed08/11/23 at 1245, Until Discontinued, Apply patch to posterior neck. Patch may remain in place for up to 12 hours in any 24 hour period, i.e. patches placed at 0800 should be removed at 2000. May cut patch to appropriate size. Patch Applied 08/18/2023 8:12 AM CDT 1 Patch Neck Patch Applied 08/17/2023 8:56 AM CDT 1 Patch Neck Patch Applied 08/16/2023 8:38 AM CDT 1 Patch Neck lidocaine (ASPERCREAM) 4 % patch 2 Patch 2 Patch, Transdermal, DAILY, First dose (after last modification) on Wed07/26/23 at 1315, Until Discontinued, Apply patch to area of back pain. Patch may remain in place for up to 12 hours in any 24 hour period, i.e. patches placed at 0800 should be removed at 2000. May cut patch to appropriate size. Patch Applied 08/23/2023 8:12 AM CDT 2 Patches Back Patch Applied 08/22/2023 8:18 AM CDT 2 Patches Back Patch Applied 08/21/2023 8:59 AM CDT 2 Patches Back lidocaine (XYLOCAINE) 5 % ointment Topical, TID PRN, Pain, Starting on 07/24/23 at 1147, Apply topically to areas of back and shoulder pain. Hazardous waste disposal required. Given 08/19/2023 4:49 PM CDT Other (Comment) Given 08/14/2023 2:01 PM CDT Ba ck Given 08/07/2023 7:03 PM CDT Ot her (Comment) methocarbamol (ROBAXIN) tablet 750 mg 750 mg, Oral, QID PRN, Muscle Spasms, Starting on 07/26/23 at 1648, Until Bhavna 07/29/23 at 1125 Given 07/29/2023 9:11 AM CDT 750 mg Given 07/28/2023 9:54 PM CDT 750 mg Given 07/28/2023 1:35 PM CDT 750 mg methocarbamol (ROBAXIN) tablet 750 mg 750 mg, Oral, TID PRN, Muscle Spasms, Starting on Bhavna 07/29/23 at 1124, Until 08/23/23 at 1538 Given 08/23/2023 7:46 AM CDT 750 mg Given 08/23/2023 1:21 AM CDT 750 mg Given 08/22/2023 1:24 AM CDT 750 mg methocarbamol (ROBAXIN) tablet 750 mg 750 mg, Oral, HS, First dose on Bhavna 07/29/23 at 2100, Until Discontinued, Indications: Musculoskeletal Pain Given 08/22/2023 8:20 PM CDT 750 mg Given 08/21/2023 8:14 PM CDT 750 mg Given 08/20/2023 8:33 PM CDT 750 mg metoprolol succinate (TOPROL XL) extended release tablet 25 mg 25 mg, Oral, DAILY, First dose on Bhavna 07/22/23 at 0900, Until Discontinued, Tablet may be split in half, but not crushed. Given 08/11/2023 7:55 AM CDT 25 mg Given 08/10/2023 8:05 AM CDT 25 mg Given 08/09/2023 7:45 AM CDT 25 mg metoprolol succinate (TOPROL XL) extended release tablet 50 mg 50 mg, Oral, DAILY, First dose (after last modification) on Wed08/12/23 at 0900, Until Discontinued, Tablet may be split in half, but not crushed. Given 08/23/2023 8:12 AM CDT 50 mg Given 08/22/2023 8:07 AM CDT 50 mg Given 08/21/2023 9:00 AM CDT 50 mg nicotine (COMMIT) lozenge 2 mg 2 mg, Oral, Q1H PRN, Smoking Cessation, Starting on Wed07/20/23 at 1618, Until Wed08/23/23 at 1538, Give gum as first line. Use lozenges if gum is not effective or if patient refuses gum. Maximum 5 lozenges/6 hours OR 20 lozenges/day., Indications: Nicotine Dependence nicotine (NICORETTE) gum 2 mg 2 mg, Oral, Q1H PRN, Smoking Cessation, Starting on Wed07/20/23 at 1618, Until Wed08/23/23 at 1538, Slow paced chewing and intermittent packing in cheek. Maximum 24 pieces/day. Give gum as first line. Use lozenges if gum is not effective or if patient refuses gum., Indications: Nicotine Dependence OLANZapine (ZyPREXA ZYDIS) disintegrating tablet 10 mg 10 mg, Oral, BID PRN, Agitation, Psychosis, Starting on Wed07/20/23 at 1638, Until Wed08/23/23 at 1538 Given 08/23/2023 1:21 AM CDT 10 mg Given 08/22/2023 1:24 AM CDT 10 mg Given 08/21/2023 1:08 AM CDT 10 mg OLANZapine (ZyPREXA) tablet 10 mg 10 mg, Oral, HS, First dose on Wed08/13/23 at 2100, Until Discontinued, Indications: sleep Given 08/14/2023 8:02 PM CDT 10 mg Given 08/13/2023 8:21 PM CDT [address] (PROTONIX) tablet 40 mg 40 mg, Oral, DAILY AT 0600, First dose on Wed07/22/23 at 0600, Until Discontinued Given 08/23/2023 6:51 AM CDT 40 mg Given 08/22/2023 6:35 AM CDT 40 mg Given 08/21/2023 6:48 AM CDT 40 mg polyethylene glycol (MIRALAX) oral powder 17 g 17 g, Oral, DAILY PRN, Constipation, No stool in the last 2 days, Starting on Wed07/20/23 at 1618, Until Wed08/23/23 at 1538, Cumulative bowel medication orders. Administer based on [...] again until patient stools. QUEtiapine (SEROquel) tablet 100 mg 100 mg, [...] Given 07/21/2023 9:00 PM CDT 200 mg QUEtiapine (SEROquel) tablet 400 mg 400 mg, Oral, HS, First dose on Wed07/22/23 at 2100, Until Discontinued, Indications: SCAD Given 07/22/2023 8:49 PM CDT 400 mg QUEtiapine (SEROquel) tablet 500 mg 500 mg, Oral, HS, First dose (after last modification) on Wed07/23/23 at 2100, Until Discontinued, Indications: SCAD Given 07/23/2023 8:17 PM CDT 500 mg QUEtiapine (SEROquel) tablet 600 mg 600 mg, Oral, HS, First dose (after last modification) on Wed07/24/23 at 2100, Until Discontinued, Indications: SCAD Given 07/24/2023 8:40 PM CDT 600 mg QUEtiapine (SEROquel) tablet 700 mg 700 mg, Oral, HS, First dose (after last modification) on Wed07/25/23 at 2100, Until Discontinued, Indications: SCAD Given 07/25/2023 8:33 PM CDT 700 mg QUEtiapine (SEROquel) tablet 800 mg 800 mg, Oral, HS, First dose (after last modification) on 07/26/23 at 2100, Until Discontinued, Indications: SCAD Given 08/22/2023 8:19 PM CDT 800 mg Given 08/21/2023 8:15 PM CDT 800 mg Given 08/20/2023 8:33 PM CDT 800 mg senna (SENOKOT) tablet 2 Tablet 2 Tablet, Oral, BID PRN, Constipation, No stool in the last day, Starting on Wed07/20/23 at 1618, Until Wed08/23/23 at 1538, Cumulative bowel medication orders. Administer based on [...] day, begin regimen again until patient stools. tamsulosin (FLOMAX) capsule 0.4 mg 0.4 mg, Oral, QDAY PC, First dose on Wed07/24/23 at 1700, Until Discontinued, Swallow whole. Do not chew, crush, or dissolve the granules inside of the capsule. Given 08/23/2023 8:12 AM CDT 0.4 mg Given 08/22/2023 8:08 AM CDT 0.4 mg Given 08/21/2023 9:00 AM CDT 0.4 mg thiamine (VITAMIN B-1) tablet 100 mg 100 mg, Oral, DAILY, First dose (after last modification) on Wed07/21/23 at 0900, Until Discontinued Given 08/23/2023 8:12 AM CDT 100 mg Given 08/22/2023 8:08 AM CDT 100 mg Given 08/21/2023 9:00 AM CDT 100 mg traZODone (DESYREL) tablet 50 mg 50 mg, Oral, HS, First dose on Wed07/25/23 at 2100, Until Discontinued, Indications: Insomnia Given 07/26/2023 8:28 PM CDT 50 mg Given 07/25/2023 8:33 PM CDT 50 mg traZODone (DESYREL) tablet 50 mg 50 mg, Oral, HS PRN, Sleep, Starting on Wed07/25/23 at 1452, Until Wed07/27/23 at 1307 Given 07/26/2023 1:48 AM CDT 5 0 mg valACYclovir (VALTREX) tablet 1,000 mg 1,000 mg, Oral, DAILY, First dose on Wed07/27/23 at 2130, For 5 doses, Indications: Genital Herpes Simplex Given 07/31/2023 8:18 AM CDT 1,000 mg Given 07/30/2023 7:58 AM CDT 1,000 mg Given 07/29/2023 8:17 AM CDT 1,000 mg documented in this encounter Active and Recently Administered Medications Times are shown in CDT. Scheduled Medication Order 08/21/2023 08/22/2023 08/23/2023 acetaminophen (TYLENOL) tablet 1,000 mg 1,000 mg, Oral, TID, First dose on Wed08/10/23 at 2100, Until Discontinued 08 (Given - Provider: Melissa Ryan RN)1343 (Given - Provider: Melissa Ryan RN)2013 (Given - Provider: Kortney Greenfield RN) 0807 (Given - Provider: Melissa Ryan RN)1344 (Given - Provider: Melissa Ryan RN)2018 (Given - Provider: Kortney Greenfield RN) 0812 (Given - Provider: Anca Finney RN) amitriptyline (ELAVIL) tablet 100 mg 100 mg, Oral, HS, First dose (after last modification) on Wed08/02/23 at 2100, Until Discontinued 2014 (Given - Provider: Kortney Greenfield RN) 2019 (Given - Provider: Kortney Greenfield RN) amLODIPine (NORVASC) tablet 5 mg 5 mg, Oral, DAILY, First dose on Wed07/21/23 at 1730, Until Discontinued 0858 (Given - Provider: Melissa Ryan RN) 08 (Given - Provider: Melissa Ryan RN) 08 (Given - Provider: Anca Finney RN) aspirin chewable tablet 81 mg 81 mg, Oral, DAILY, First dose on Wed07/22/23 at 0900, Until Discontinued 08 (Given - Provider: Melissa Ryan RN) 08 (Given - Provider: Melissa Ryan RN) 08 (Given - Provider: Anca Finney RN) atorvastatin (LIPITOR) tablet 20 mg 20 mg, Oral, EVENING, First dose (after last modification) on Wed07/21/23 at 1800, Until Discontinued 170 (Given - Provider: Kortney Greenfield RN) 1714 (Given - Provider: Kortney Greenfield RN) desonide (DESOWEN) 0.05 % cream Topical, BID, First dose on Wed07/28/23 at 2100, Apply topically to (specify site) affected skin on face. Hazardous waste disposal required. 0858 (Given - Provider: Melissa Ryan RN)2053 (Not Given - Provider: Kortney Greenfield RN - Reason: Patient/family refused) 807 (Given - Provider: Melissa Ryan RN)2047 (Not Given - Provider: Kortney Greenfield RN - Reason: Patient/family refused) 811 (Given - Provider: Anca Finney RN - Comment: Neck) diphenhydrAMINE (BENADRYL) capsule 50 mg 50 mg, Oral, HS, First dose on Wed07/27/23 at 2100, Until Discontinued, Indications: Insomnia 2013 (Given - Provider: Kortney Greenfield RN) 2019 (Given - Provider: Kortney Greenfield RN) folic acid tablet 1 mg 1 mg, Oral, DAILY, First dose on Wed07/22/23 at 0900, Until Discontinued 0858 (Given - Provider: Melissa Ryan RN) 08 (Given - Provider: Melissa Ryan RN) 0812 (Given - Provider: Anca Finney RN) gabapentin (NEURONTIN) capsule 1,200 mg 1,200 mg, Oral, TID, First dose (after last modification) on Wed07/26/23 at 2100, Until Discontinued, Indications: RLS / chronic pain 0859 (Given - Provider: Melissa Ryan RN)1344 (Given - Provider: Melissa Ryan RN)2013 (Given - Provider: Kortney Greenfield RN) 08 (Given - Provider: Melissa Ryan RN)134 (Given - Provider: Melissa Ryan RN)2018 (Given - Provider: Kortney Greenfield RN) 08 (Given - Provider: Anca Finney RN) lidocaine (ASPERCREAM) 4 % patch 1 Patch 1 Patch, Transdermal, DAILY, First dose on Wed08/11/23 at 1245, Until Discontinued, Apply patch to posterior neck. Patch may remain in place for up to 12 hours in any 24 hour period, i.e. patches placed at 0800 should be removed at 2000. May cut patch to appropriate size. 0918 (Not Given - Provider: Melissa Ryan RN - Reason: Patient/family refused - Comment: Aspercreme applied instead) 0809 (Not Given - Provider: Melissa Ryan RN - Reason: Patient/family refused) 0848 (Not Given - Provider: Anca Finney RN - Reason: Patient/family refused) lidocaine (ASPERCREAM) 4 % patch 2 Patch 2 Patch, Transdermal, DAILY, First dose (after last modification) on Wed07/26/23 at 1315, Until Discontinued, Apply patch to area of back pain. Patch may remain in place for up to 12 hours in any 24 hour period, i.e. patches placed at 0800 should be removed at 2000. May cut patch to appropriate size. 0859 (Patch Applied - Provider: Melissa Ryan RN)2053 (Patch Removed - Provider: Kortney Greenfield RN) 0818 (Patch Applied - Provider: Melissa Ryan RN)2044 (Patch Removed - Provider: Kortney Greenfield RN) 0746 (Patch Removed - Provider: Anca Finney RN)08 (Patch Applied - Provider: Anca Finney RN)2011 (Due: Patch Removed - Provider: Anca Finney RN) methocarbamol (ROBAXIN) tablet 750 mg 750 mg, Oral, HS, First dose on Wed07/29/23 at 2100, Until Discontinued, Indications: Musculoskeletal Pain 2013 (Given - Provider: Kortney Greenfield RN) 2019 (Given - Provider: Kortney Greenfield RN) metoprolol succinate (TOPROL XL) extended release tablet 50 mg 50 mg, Oral, DAILY, First dose (after last modification) on Wed08/12/23 at 0900, Until Discontinued, Tablet may be split in half, but not crushed. 0900 (Given - Provider: Melissa Ryan RN) 0807 (Given - Provider: Melissa Ryan RN) 0812 (Given - Provider: Anca Finney RN) pantoprazole DR (PROTONIX) tablet 40 mg 40 mg, Oral, DAILY AT 0600, First dose on Wed07/22/23 at 0600, Until Discontinued 0648 (Given - Provider: Caridad Neves RN) 0635 (Given - Provider: Caridad Neves RN) 0651 (Given - Provider: Caridad Neves RN) QUEtiapine (SEROquel) tablet 800 mg 800 mg, Oral, HS, First dose (after last modification) on Wed07/26/23 at 2100, Until Discontinued, Indications: SCAD 2014 (Given - Provider: Kortney Greenfield RN) 2018 (Given - Provider: Kortney Greenfield RN) tamsulosin (FLOMAX) capsule 0.4 mg 0.4 mg, Oral, QDAY PC, First dose on Wed07/24/23 at 1700, Until Discontinued, Swallow whole. Do not chew, crush, or dissolve the granules inside of the capsule. 0900 (Given - Provider: Melissa Ryan, LAVERN) 0808 (Given - Provider: Melissa Ryan, LAVERN) 0812 (Given - Provider: Anac Finney, LAVERN) thiamine (VITAMIN B-1) tablet 100 mg 100 mg, Oral, DAILY, First dose (after last modification) on Wed07/21/23 at 0900, Until Discontinued 0900 (Given - Provider: Melissa Ryan, LAVERN) 0808 (Given - Provider: Melissa Ryan RN) 0812 (Given - Provider: Anca Finney RN) PRN Medication Order 08/21/2023 08/22/2023 08/23/2023 acetaminophen (TYLENOL) tablet 1,000 mg 1,000 mg, Oral, DAILY PRN, Pain/Fever, Starting on Wed08/11/23 at 0643, Until Wed08/23/23 at 1538 0413 (Given - Provider: Caridad Neves RN)0856 (Canceled Entry - Provider: Melissa Ryan RN) 0331 (Given - Provider: Sarita Negrete RN) bisacodyl (DULCOLAX) rectal suppository 10 mg(Linked Group 1) 10 mg, Rectal, DAILY PRN, Constipation, No stool in the last 3 days, Starting on Wed07/20/23 at 1618, Until Wed08/23/23 at 1538, Cumulative bowel medication orders. Administer based on [...] Q4H PRN, Heartburn, Upset Stomach, Starting on Tu07/20/23 at 1612, Until Wed08/23/23 at 1538, For indigestion/upset stomach diclofenac (VOLTAREN) gel 2 g 2 g, Topical, QID PRN, Other, shoulder/neck pain, Starting on Wed07/23/23 at 1237, Until Wed08/23/23 at 1538, Apply topically to (specify site) left shoulder/neck. Hazardous waste disposal required. 0859 (Given - Provider: Melissa Ryan RN - Comment: Neck )2017 (Given - Provider: Kortney Greenfield RN) 0809 (Given - Provider: Melissa Ryan RN - Comment: Neck)2046 (Given - Provider: Kortney Greenfield RN) diphenhydrAMINE (BENADRYL) capsule 50 mg 50 mg, Oral, DAILY PRN, Other, sleep, Starting on Wed07/27/23 at 1306, Until Wed08/23/23 at 1538, May use if initial scheduled Benadryl ineffective, Indications: sleep 0105 (Given - Provider: Caridad Neves RN) 0124 (Given - Provider: Caridad Neves RN) 0121 (Given - Provider: Caridad Neves RN) lidocaine (XYLOCAINE) 5 % ointment Topical, TID PRN, Pain, Starting on 07/24/23 at 1147, Apply topically to areas of back and shoulder pain. Hazardous waste disposal required. methocarbamol (ROBAXIN) tablet 750 mg 750 mg, Oral, TID PRN, Muscle Spasms, Starting on Bhavna 07/29/23 at 1124, Until Wed08/23/23 at 1538 0105 (Given - Provider: Caridad Neves RN)0900 (Given - Provider: Melissa Ryan RN) 0124 (Given - Provider: Caridad Neves RN) 0121 (Given - Provider: Caridad Neves RN)0746 (Given - Provider: Anca Finney RN) nicotine (COMMIT) lozenge 2 mg(Linked Group 2) 2 mg, Oral, Q1H PRN, Smoking Cessation, Starting on Wed07/20/23 at 1618, Until Wed08/23/23 at 1538, Give gum as first line. Use lozenges if gum is not effective or if patient refuses gum. Maximum 5 lozenges/6 hours OR 20 lozenges/day., Indications: Nicotine Dependence nicotine (NICORETTE) gum 2 mg(Linked Group 2) 2 mg, Oral, Q1H PRN, Smoking Cessation, Starting on Wed07/20/23 at 1618, Until Wed08/23/23 at 1538, Slow paced chewing and intermittent packing in cheek. Maximum 24 pieces/day. Give gum as first line. Use lozenges if gum is not effective or if patient refuses gum., Indications: Nicotine Dependence OLANZapine (ZyPREXA ZYDIS) disintegrating tablet 10 mg 10 mg, Oral, BID PRN, Agitation, Psychosis, Starting on Wed07/20/23 at 1638, Until Wed08/23/23 at 1538 0108 (Given - Provider: Caridad Neves RN) 0124 (Given - Provider: Caridad Neves RN) 0121 (Given - Provider: Caridad Neves RN) polyethylene glycol (MIRALAX) oral powder 17 g(Linked Group 1) 17 g, Oral, DAILY PRN, Constipation, No stool in the last 2 days, Starting on Wed07/20/23 at 1618, Until Wed08/23/23 at 1538, Cumulative bowel medication orders. Administer based on [...] day, Starting on Wed07/20/23 at 1618, Until Wed08/23/23 at 1538, Cumulative bowel medication orders. Administer based on [...] day, Starting on Wed07/20/23 at 1618, Until Wed08/23/23 at 1538, Cumulative bowel medication orders. Administer based on [...] days, Starting on Wed07/20/23 at 1618, Until Wed08/23/23 at 1538, Cumulative bowel medication orders. Administer based on [...] days, Starting on Wed07/20/23 at 1618, Until Wed08/23/23 at 1538, Cumulative bowel medication orders. Administer based on [...] Cessation, Starting on Wed07/20/23 at 1618, Until Wed08/23/23 at 1538, Give gum as first line. Use lozenges if gum is not effective or if patient refuses gum. Maximum 5 lozenges/6 hours OR 20 lozenges/day., Indications: Nicotine Dependence Or nicotine (NICORETTE) gum 2 mgJump to med 2 mg, Oral, Q1H PRN, Smoking Cessation, Starting on Wed07/20/23 at 1618, Until Wed08/23/23 at 1538, Slow paced chewing and intermittent packing in cheek. Maximum 24 pieces/day. Give gum as first line. Use lozenges if gum is not effective or if patient refuses gum., Indications: Nicotine Dependence documented in this encounter Care Teams Operating Systems Programmer Relationship Specialty Start Date End Date Briana Vazquez PA-C [address] [place] [address] PCP - General Physician Tape Machine Tailer 11/29/19 documented as of this encounter
--- OUTSIDE RECORDS SUMMARY | 2023-09-27 08:05 | XMS_ITS | Encounter Summary ---
Author Organization [facility] Address [address], [place] [address] Care Team Providers Care B And B Gang Worker Name Role Phone Briana Vazquez PA-C Primary Care Provider [phone] Reason for Referral * Consult/Transfer Care (Routine) - Closed Specialty Diagnoses / Procedures Referred By Pinky osorio Referred To Contact Diagnoses Encounter for long-term (current) [place] [address] [place] [address] Referral ID Status Reason Start Date Expiration Date Visits Re quested Visits Authorized [id number] Closed 12/30/2016 01/30/2017 1 1 Scheduling Instructions Your provider has recommended you to follow up with your Primary Laborer [employer]. If you are currently seeing a [facility] provider for your primary care needs, a general service officer will contact you within the next 3 business days to assist you in setting up this appointment. To schedule your appointment you may call [phone]. We suggest you call your health insurance [...] You can schedule your appointment online at [employer] or by calling the appointment center at the phone number listed above. Thank you for choosing [facility]. 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
--- OUTSIDE RECORDS SUMMARY | 2023-09-27 08:05 | XMS_ITS | Encounter Summary ---
Author Organization [facility] Address [address], [place] [address] Care Team Providers Care Curriculum Consultant Name Role Phone Briana Vazquez PA-C Primary Care Provider [phone] Encounter Details Date Type Department Care Team (Late st Contact Info) Description 07/18/2023 Partner [facility] DEPARTMENT Provider, MD Uvaldo Interface provider interface provider, [place] [id number] [place] [address] 07/18/2023 Social History Tobacco Use Types Packs/Day [...] place to sleep or slept in a [facility] (including now)? No 05/07/2023 Sex and Gender Information Value Date Recorded Sex Assigned at Not on file Gender Identity Not on file Sexual Orientation Not on file documented as of this encounter Plan of Treatment Not on file documented as of this encounter Visit Diagnoses Not on filedocumented in this encounter Care Teams Curriculum Consultant Relationship Specialty Start Date End Date Briana Vazquez PA-C [address] [place] [address] PCP - General Physician Reconditioner 11/29/19 documented as of this encounter
--- OUTSIDE RECORDS SUMMARY | 2023-09-27 08:05 | XMS_ITS | Encounter Summary ---
[facility] Organization [facility] Address [address], [place] [address] Care Team Providers Care Hydraulic Riveter Name Role Phone Briana Vazquez PA-C Primary Care Provider [phone] Reason for Referral * Consult/Transfer Care (Routine) - New Request Specialty Diagnoses / Procedures Referred By Pinky t Referred To Contact Diagnoses Methamphetamine use disorder, severe, dependence (HRC) Sedative, hypnotic or anxiolytic use disorder, severe, dependence (HRC) Alcohol use disorder, severe, dependence (HRC) Bossman Franco MD [address] [place] [id number] Referral ID Status Reason Start Date Expiration Date V isits Requested Visits Authorized [id number] New Request 07/20/2023 10/18/2024 1 1 Scheduling Instructions Your clinician has recommended an appointment with [facility]. You may call [phone] to schedule your appointment. We suggest you [...] Incomplete Specialty Diagnoses / Procedures Referred By Contbarry t Referred To Contact Procedures CT Head WO IV Cont Sarah Aguirre MD [address] [place] [id number] Referral ID Status Reason Start Date Expiration Date V isits Requested Visits Authorized [id number] Incomplete 07/19/2023 10/17/2024 1 1 Reason for Visit * Auth/Cert (Routine) Specialty Diagnoses / Procedures Referred By Pinky t Referred To Contact Diagnoses Agitation USAMA (acute kidney injury) (HRC) Intentional overdose, initial encounter (HRC) Tachycardia Hypertension, unspecified type (HRC) AMS USAMA (acute kidney injury) (HRC) Intentional overdose, initial encounter (HRC) Agitation Tachycardia Hypertension, unspecified type (HRC) Referral ID Status Reason Start Date Expiration Date Visits Re quested Visits Authorized [id number] 1 1 Encounter Details Date Type Department Care Team (Latest Contact Info) Description 07/18/2023 8:14 PM CDT - 07/20/2023 3:10 PM CDT Hospital Encounter RH S[address] [place] [id number] Sánchez Ramírez, [address] [place] [phone] Camilo Montreo, LISETT[place] [address] [place] [address] Sarah Aguirre MD [address] [place] [address] Jonathan George MD [address] [place], [place] [id number] Brian Crews, [address] [place] [phone] USAMA (acute kidney injury) (HRC) (Primary Dx); [...] place to sleep or slept in a skilled nursing (including now)? No 05/07/2023 Sex and Gender [...] in this encounter Discharge Summaries * Jonathan George MD - 07/20/2023 11:36 AM CDT [facility] Hospital Discharge Summary Report Admit Date/Time: 07/18/2023 [...] Code Activity as Tolerated Regular Diet Comments: Social Worker Palliative Care needed? No [2] Pending Results and Other [...] the Pain Management [facility] at the [facility]. [address] [place] [address] option 3 documented in this encounter Medications [...] Indications: Musculoskeletal Pain 56 Tablet 08/19/2023 09/03/2023 acetaminophen (TYLENOL) 325 MG tablet Take 2 Tablets (650 mg) by mouth every 6 hours as needed. 05/10/2023 08/19/2023 amLODIPine (NORVASC) 5 MG tablet Take 1 Tablet (5 mg) by mouth daily. 90 Tablet 3 05/10/2023 08/19/2023 aspirin 81 MG chewable tablet Chew and swallow 1 Tablet (81 mg) by mouth daily. 05/10/2023 08/19/2023 atorvastatin (LIPITOR) 40 MG tablet Take 1 Tablet (40 mg) by mouth every evening. 05/10/2023 08/19/19 folic acid 1 MG tablet Take 1 Tablet (1 mg) by mouth daily. 30 Tablet 05/10/2023 08/19/2023 gabapentin (NEURONTIN) 300 MG capsuleIndications :Neuropathic Pain Take 2 Capsules (600 mg) by mouth three times a day. Indications: Neuropathic Pain 05/10/2023 08/19/2023 lidocaine (XYLOCAINE) 5 % ointment Apply topically to affected area(s) three times daily as needed. 35.44 g 05/10/2023 08/19/2023 metoprolol succinate (TOPROL XL) 25 MG 24 hour release tablet Take 1 Tablet (25 mg) by mouth daily. 05/10/2023 08/19/2023 naltrexone (REVIA) 50 MG tablet Take 1 Tablet (50 mg) by mouth daily. 30 Tablet 1 08/06/2023 08/09/2023 omeprazole (PRILOSEC) 20 MG capsule Take 1 hour before a meal. 05/10/2023 08/19/2023 QUEtiapine (SEROQUEL) 100 MG tabletIndications: Bipolar Mood Disorder Take 1 Tablet (100 mg) by mouth three times a day. Indications: Manic-Depression 07/20/2023 08/19/2023 documented as of this encounter Progress Notes * Chon Rajan MD - 07/20/2023 11:22 AM CDT [facility] Toxicology Consult - [...] discussed and agreed upon with attending medical contract runner, Dr. Lorenzana. Thank you for involving the toxicology service in the care of this patient. Should the patient's condition deteriorate or you have any urgent questions, please don't hesitate to contact the on-call fellow listed on Amiashish. Chon Rajan MD Medical Toxicology Service 07/20/2023 11:23 AM HISTORY AND TOXICOLOGY CLINICAL SUMMARY: Nicanor Alvarado is a 57 y.o. male with bipolar affective disorder, benzodiazapine misuse, polysubstance dependence, psychosis, methamphetamine use who presented to the emergency department with concern for ingestion. The patient was found by EMS in [place] with multiple pill bottles (more than 15) [...] nursing note reviewed. Exam conducted with a dental ceramist helper present. Constitutional: Appearance: Normal appearance. He is [...] P-R Interval QRS Duration QT QTc P Andes R Andes T Andes 07/18/23 20:29:15 07/19/23 11:53:11 120 120 144 [...] Lorenzana MD - 07/20/2023 11:52 AM CDT [facility] Toxicology Attending Supervision Note I performed the [...] patient/family/caregiver, Referring and communicating with other health home care liaison , Documenting clinical information in the electronic [...] team during acute event. Sarah Aguirre MD [facility] * Elo Davis RN - 07/19/2023 1:30 PM CDT [facility] Behavioral Emergency Response Team Note Time, Date [...] Hx of polysubstance use, bipolarw/psychotic features. Per DIRECTOR PROCESS ENGINEERING patient suddenly became tearful and inconsolable, started [...] Received IV Zosyn and was transferred to [facility]. Per admitting provider, when asked about how [...] to have a cheeseburger. - Holding all MACHINE FEED OPERATOR meds - Psychiatry consulted - 1:1 at [...] psychiatry within 1-2 days Code Status: Full Tube Coverer and nursing notes reviewed, labs reviewed and pertinent labs for monitoring ordered. Discussed management and clinical plan of care with interdisciplinary team including bedside nurse, charge nurse, SW/CM, pharmacy, PT, and network consultant(s). Patient requires ongoing hospitalization for an acute illness that poses a threat to life. 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 Tobacco Use Smoking status: Former Current packs/day: [...] Resource Strain: High Risk (03/08/2021) Received from [facility] Financial Resource Strain Difficulty of Paying Living [...] bedtime PRN Camilo Montero PA-C nystatin (MYCOSTATIN) 322935 UNIT/GM topical powder Topical BID PRN Camilo [...] chloride (OCEAN) 0.65 % nasal solution 1 [place] 1 [place] Both Nostrils Q2H PRN Madison Montero PA-C [...] Josue PA-C - 07/20/2023 8:50 AM CDT [facility] Department of Psychiatry Follow-Up Consultation Note Attending [...] precautions ordered Increase quetiapine to 100mg TID, knot picker cloth dose was 800mg qHS. Zyprexa 5 PO [...] 100 TID for now. Contacted pt's mother Catalnia: She reports pt drinks 1 drink/night, but [...] alive. PRN valium given per MAY x1- 190: Pt talking on phone to son and [...] night. PRN valilum per MAY x2. 7406 Deanne Quiñones - Gave zyprexa PRN around an hour [...] mg Oral At bedtime PRN nystatin (MYCOSTATIN) 275126 UNIT/GM topical powder Topical BID PRN OLANZapine [...] chloride (OCEAN) 0.65 % nasal solution 1 [place] 1 [place] Both Nostrils Q2H PRN thiamine (VITAMIN B-1) [...] 07/19/2023 8:00 AM CDTAssociated Order(s): PSYCHIATRY CONSULT [facility] Department of Psychiatry Consult Note Attending MD: [...] patient cannot leaveAMA. - Social Work / Service Advocate Contact and primary team to work on finding next of kin contact (mom?- Catalina)to assist in making medical decisions for the patient. - If next of kin cannot be found, will use Decision-Making Process for Patients without a Surrogate Policy [id number] - The Psych Consult team will enter [...] presented to the ED today from the [place] [facility] for evaluation of altered mental status and possible ingestion. Pt isunable to provide any history due to his altered mental status HPI taken from ED notes and signout. Per ED note: Patient came from home, was picked up by [place] [facility], multiple pill bottles surrounding the patient, more than 15, unsure of what the patient took, patient was altered and did not provide much history. Had a low-grade temperature of 99?? with a white count of 20, given a dose of Zosyn. Transferred here to [facility] for further evaluation. On my discussion with [...] bath salts use. 2023 had admission to [facility] in May. Current Psychiatrist: None. Ángel Massey [...] Family of Origin: Grew up in a caodaism family in [place]. 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 Children (ages, sex): 2 children, one in 2016 by suicide. Reason for end of marriage: Unclear Living situation: Lives with mother currently. Work History (longest job, last job, current support): Has worked at [employer] in past. Legal Problems: Yes multiple DWIs. [...] mg Oral At bedtime PRN nystatin (MYCOSTATIN) 725061 UNIT/GM topical powder Topical BID PRN OLANZapine [...] chloride (OCEAN) 0.65 % nasal solution 1 [place]ced[place] 1 [place] Both Nostrils Q2H PRN Mental Status Exam BP (!) 112/99 (BP Cuff Size: Regular - Long) Pulse (!) 110 Temp 97.6 ??F (36.4 ??C) (Axillary) Resp (!) 28 Ht 6' 1 (1.854 m) SpO2 96% BMI 26.87 kg/m?? Appearance: poor eye contact, only wearing [facility] shorts Gait/Station: seated Muscle Strength and [...] Labs I have reviewed pertinent labs. [place] VENEER PRESS OPERATOR: Gabapentin and Testosterone and Oxycodone in the [...] 07/18/2023 9:34 PM CDTAssociated Order(s): TOXICOLOGY CONSULT [facility] Toxicology Consult - [...] The patient was found by EMS in [place] with multiple pill bottles (more than 15) [...] from the original note were not included. [facility] Medicine History & Physical Patient name: Nicanor Alvarado : 1965 Date of Admission: 07/18/2023 8:14 PM Date of Service: 07/18/2023 Attending/Staff: Camilo Monteor PA-C Chief Complaint Altered mental status History of Present Illness 57 y.o. male with hx of HTN, bipolar d/o with psychosis, polysubstance abuse who presented to the ED today from the [place] [facility] for evaluation of altered mental status and possible ingestion. Pt isunable to provide any history due to his altered mental status HPI taken from ED notes and signout. Per ED note: Patient came from home, was picked up by [place] [facility], multiple pill bottles surrounding the patient, more than 15, unsure of what the patient took, patient was altered and did not provide much history. Had a low-grade temperature of 99?? with a white count of 20, given a dose of Zosyn. Transferred here to [facility] for further evaluation. 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 PT is restless and diaphoretic. * Renetta Lanza - 07/18/2023 9:26 PM CDT Patient continues to put hand down pants and taking out genitals. Able to be redirected at this time * Irvin Heller MD - 07/18/2023 8:37 PM CDT [facility] Emergency Medicine Visit Note Chief Complaint: No chief complaint on file. HPI Nicanor Alvarado is a 57 y.o. male w/ known hypertension, GERD, anxiety disorder, bipolar affective disorder, methamphetamine use, benzo misuse, polysubstance dependence, psychosis, who presents to the Emergency Department with ingestion concern. Patient sent in from [facility] for concerns for ingestion/infection. Patient came from home, was picked up by [place] [facility], multiple pill bottles surrounding the patient, more than 15, unsure of what the patient took, patient was altered and did not provide much history. Had a low-grade temperature of 99?? with a white count of 20, givena dose of Zosyn. Transferred here to [facility] for further evaluation. On my discussion with [...] visit, and supervised patient care with the food editor. MDM: 57 yo M who has methamphetamine [...] [TT] 2222 Lactate, Whole Blood: 0.78 [TT] 2223 CK, Total(!): 782 [TT] 2232 Spoke with medicine. Admitted to progressive care at this time. [TT] ED Course User Index [MP] Sánchez Ramírez, DO [TT] Irvin Heller MD Clinical Impressions as of 07/18/232231 USAMA (acute kidney injury) (HRC) Intentional overdose, initial encounter (HRC) Agitation Tachycardia Hypertension, unspecified type (HRC) * Amando [place] MD - 07/18/2023 6:30 PM CDT [facility] Emergency Department Inbound Transfer Note Reason For Transfer: 57 year old male at [place] [facility]. Hx of schizophrenia found down at [...] TELEMETRY MONITORING Routine 07/19/2023 12:04 AM CDT [address] LACTATE, WHOLE BLOOD Routine 07/18/2023 10:18 PM [...] Results * Magnesium (07/20/2023 9:05 AM CDT) Magnesium 2.1 1.6 - 2.6 mg/dL 07/20/2023 9:44 AM CDT [facility] Blood Venipuncture / Unknown 07/20/2023 9:05 AM CDT 07/20/2023 9:10 AM CDT Devendra Hensley DO LAB_[address] [address], [facility] * (ABNORMAL) CK, Total (07/20/2023 9:05 AM CDT) CK, Total 375(H) 30 - 200 U/L 07/20/2023 9:44 AM [facility] Blood Venipuncture / Unknown 07/20/2023 9:05 AM CDT 07/20/2023 9:10 AM T Sarah Aguirre MD LAB_[address] [address], [facility] * (ABNORMAL) Comprehensive Metabolic Panel (07/20/2023 9:05 AM T) Sodium 141 136 - 145 mmol/L 07/20/2023 9:44 AM [facility] Potassium 4.1 3.5 - 5.1 mmol/L 07/20/2023 9:44 AM [facility] Comment:Specimen slightly he molyzed. Hemolysis may affect result. Chloride 104 98 - 109 mmol/L 07/20/2023 9:44 AM [facility] CO2 25 20 - 29 mmol/L 07/20/2023 9:44 AM [facility] Anion Gap 12 6 - 16 mmol/L 07/20/2023 9:44 AM [facility] Calcium 9.7 8.4 - 10.4 mg/dL 07/20/2023 9:44 AM [facility] BUN 15 7 - 26 mg/dL 07/20/2023 9:44 AM [facility] Creatinine 1.10 0.73 - 1.18 mg/dL 07/20/2023 9:44 AM [facility] Alkaline Phosphatase 73 40 - 150 U/L 07/20/2023 9:44 AM [facility] AST (SGOT) 87(H) 10 - 40 U/L 07/20/2023 9:44 AM [facility] Comment:Specimen slightly he molyzed. Hemolysis may affect result. ALT (SGPT) 43 <=55 U/L 07/20/2023 9:44 AM [facility] Bilirubin, Total 1.1 0.2 - 1.2 mg/dL 07/20/2023 9:44 AM [facility] Protein, Total 7.3 6.4 - 8.3 g/dL 07/20/2023 9:44 AM [facility] Albumin 3.5 3.5 - 5.0 g/dL 07/20/2023 9:44 AM [facility] Glucose 83 70 - 100 mg/dL 07/20/2023 9:44 AM [facility] Comment:The given reference range is for the fasting state. Non-fasting reference range for glucose is 70 - 180 mg/dL. GFR, Estimated >60 >60 mL/min/1.7 3m2 07/20/2023 9:44 AM [facility] Blood Venipuncture / Unknown 07/20/2023 9:05 AM CDT 07/20/2023 9:10 AM T Sarah Aguirre MD LAB_[address] [address], [facility] * (ABNORMAL) Complete Blood Count-No Diff (07/20/2023 9:05 AM T) WBC 8.8 3.5 - 10.5 x10(9)/L 07/20/2023 9:47 AM [facility] RBC 5.95(H) 4.32 - 5.72 x10(12)/L 07/20/2023 9:47 AM [facility] Hemoglobin 17.7(H) 13.5 - 17.5 g/dL 07/20/2023 9:47 AM [facility] HCT 52.6(H) 38.8 - 50.0 % 07/20/2023 9:47 AM [facility] MCV 88.4 80.0 - 100.0 fL 07/20/2023 9:47 AM [facility] MCH 29.7 27.6 - 33.3 pg 07/20/2023 9:47 AM [facility] MCHC 33.7 31.5 - 35.2 g/dL 07/20/2023 9:47 AM [facility] RDW 13.9 11.9 - 15.5 % 07/20/2023 9:47 AM [facility] Platelets 178 150 - 450 x10(9)/L 07/20/2023 9:47 AM [facility] Automated NRBC 0 <=0 /100 WBC 07/20/2023 9:47 AM [facility] Blood Venipuncture / Unknown 07/20/2023 9:05 AM CDT 07/20/2023 9:10 AM CDT Sarah Aguirre MD LAB_1 Performing Organization Address City/[facility] Co de Phone Number [address] * INPATIENT TELEMETRY MONITORING (07/20/2023 7:29 AM CDT) TELE P-R INTERVAL 0.17 MUSE [facility] TELE QRS DURATION 0.08 M[facility] TELE R-R INTERVAL 0.66 MUSE [facility] TELE QT 0.32 [facility] TELE INTERPRETATION Sinus Rhythm RK RN MUSE [facility] 07/20/2023 7:29 AM CDT Narrative [facility] - 07/20/2023 10:15 AM CDT Sinus Rhythm ??RK RN Interface Provider EKG Performing Organization Address [facility] de Phone Number [facility] [address] [place] [address] * INPATIENT TELEMETRY MONITORING (07/19/2023 11:16 PM CDT) TELE P-R INTERVAL 0.20 MUSE [facility] TELE QRS DURATION 0.08 M[facility] TELE R-R INTERVAL 0.63 MUSE [facility] TELE QT 0.30 MUSE [facility] TELE QTC 0.37 MUSE [facility] TELE INTERPRETATION Sinus Tachy ED, RN MUSE [facility] 07/19/2023 11:1 6 PM CDT Narrative [facility] - 07/20/2023 12:53 AM CDT Sinus Tachy ??ED, RN Interface Provider EKG Performing Organization Address [facility] Co de Phone Number [facility] [address] [place] [address] * INPATIENT TELEMETRY MONITORING (07/19/2023 7:00 PM CDT) TELE P-R INTERVAL 0.15 MUSE [facility] TELE QRS DURATION 0.07 MUSE [facility] TELE R-R INTERVAL 0.52 MUSE [facility] TELE QT 0.25 MUSE [facility] TELE QTC 0.35 MUSE [facility] TELE INTERPRETATION Sinus Albert PVCs; MC, RN MUSE [facility] 07/19/2023 7:00 PM CDT Narrative [facility] - 07/19/2023 7:12 PM CDT Sinus Albert ??PVCs; KEITH, RN Interface Provider MD STARR Performing Organization Address [facility] Co de Phone Number [facility] [address] [place] [address] * C.Difficile Toxin,Molecular Detection,This order expires in 24 hours. Do NOT collect after: 07/20/2023; at: 3:15 PM (07/19/2023 6:28 PM CDT) [facility] C.difficile by PCR Not Detected Not Detected 07/19/2023 7:40 PM CDT [facility] Stool Non-blood Collection / Unknown 07/19/2023 6:28 PM CDT 07/19/2023 6:41 PM CDT [facility] - 07/19/2023 7:40 PM CDT Comment: A single negative test for C. difficile means the likelihood this organism is causing the diarrheal illness is extremely low. ??Therefore repeat testing within 7 days of the same diarrheal episode is strongly discouraged. Sarah Aguirre MD LAB_1 Performing Organization Address [facility] Co de Phone Number [facility] [address] [place] [address], [facility] * (ABNORMAL) Benzodiazepines, Urine, Quantitative (07/19/2023 6:26 PM CDT) Pathologist [facility] Clonazepam Metab 7-Aminoclonaze mitzi, urine Not Detected Not Detected 07/21/2023 10:01 AM CDT [facility] Alprazolam, urine Not Detected Not Detected 07/21/2023 10:01 AM T [facility] Clonazepam, urine Not Detected Not Detected 07/21/2023 10:01 AM T [facility] Diazepam, urine Not Detected Not Detected 07/21/2023 10:01 AM T [facility] Lorazepam, urine Confirmed Positive(A) Not Detected 07/21/2023 10:01 AM CDT [facility] Nordiazepam, urine Confirmed Positive(A) Not Detected 07/21/2023 10:01 AM CDT [facility] Oxazepam, urine Not Detected Not Detected 07/21/2023 10:01 AM CDT [facility] Temazepam, urine Confirmed Positive(A) Not Detected 07/21/2023 10:01 AM CDT [facility] Evkec-RV-Zgbkg zolam, urine Not Detected Not Detected 07/21/2023 10:01 AM T [facility] Urine URINE SPECIMEN COLLECTION, CLEAN CATCH / Unknown Non-blood Collection / Unknown 07/19/2023 6:26 PM CDT 07/19/2023 6:42 PM CDT [facility] - 07/21/2023 10:01 AM CDT The absence [...] developed and its performance characteristics validated by [facility]. It has not been cleared nor approved by the FDA. Genet Treadwell PA-C LAB_[address] [address], [facility] * (ABNORMAL) Amphetamines Confirmation, Urine (07/19/2023 6:26 PM CDT) Amphetamine, urine Confirmed Positive(A) Not Detected 07/21/2023 10:01 AM CDT [facility] Methamphetami ne, urine Confirmed Positive(A) Not Detected 07/21/2023 10:01 AM CDT [facility] Ecstasy MDMA, urine Not Detected Not Detected 07/21/2023 10:01 AM CDT [facility] Ecstasy Metab MDA, urine Not Detected Not Detected 07/21/2023 10:01 AM T [facility] Urine URINE SPECIMEN COLLECTION, CLEAN CATCH / Unknown Non-blood Collection / Unknown 07/19/2023 6:26 PM CDT 07/19/2023 6:42 PM CDT [facility] - 07/21/2023 10:01 AM CDT The absence [...] developed and its performance characteristics validated by [facility]. It has not been cleared nor approved by the FDA. Genet Treadwell PA-C LAB_[address] [address], [facility] * (ABNORMAL) Rapid Drug Panel, Urine (with Confirmation) with THC (07/19/2023 6:26 PM CDT) [facility] Amphetamines Screen Presumptive Positive(A) Not Detected 07/19/2023 7:06 PM T [facility] Barbiturates Screen Not Detected Not Detected 07/19/2023 7:06 PM [facility] Benzodiazepines Screen Presumptive Positive(A) Not Detected 07/19/2023 7:06 PM [facility] Buprenorphine Screen Not Detected Not Detected 07/19/2023 7:06 PM [facility] Cocaine Metabolite Screen Not Detected Not Detected 07/19/2023 7:06 PM [facility] Methadone Screen Not Detected Not Detected 07/19/2023 7:06 PM [facility] Opiates Screen Not Detected Not Detected 07/19/2023 7:06 PM [facility] Oxycodone Screen Not Detected Not Detected 07/19/2023 7:06 PM [facility] Phencyclidine (PCP) Screen Not Detected Not Detected 07/19/2023 7:06 PM [facility] THC (Marijuana) Metab Screen Not Detected Not Detected 07/19/2023 7:06 PM [facility] Creatinine, Urine, Random 42 >20 mg/dL 07/19/2023 7:06 PM [facility] Urine URINE SPECIMEN COLLECTION, CLEAN CATCH / Unknown Non-blood Collection / Unknown 07/19/2023 6:26 PM CDT 07/19/2023 6:42 PM CDT Narrative [facility] - 07/19/2023 7:06 PM CDT The absence [...] Genet Treadwell PA-C LAB_1 Performing Organization Address [facility]/ZIP Co de Phone Number [address] * (ABNORMAL) Potassium (07/19/2023 4:29 PM CDT) Potassium 3.4(L) 3.5 - 5.1 mmol/L 07/19/2023 4:58 PM CDT [facility] Comment:Specimen slightly he molyzed. Hemolysis may affect result. Blood Venipuncture / Unknown 07/19/2023 4:29 PM CDT 07/19/2023 4:35 PM CDT Sarah Aguirre MD LAB_1 Performing Organization Address [facility]/ZIP Co de Phone Number [address] * CT Head WO IV Cont (07/19/2023 12:14 PM CDT) Anatomical Region Laterality Modality Head Computed Tomogra phy 07/19/2023 12:1 4 PM CDT Narrative 07/19/2023 12:49 PM CDT EXAM: CT HEAD WO IV CONT LOCATION: [facility] DATE: 07/19/2023 INDICATION: Hallucinations, confusion, unknown baseline [...] EXAM: CT HEAD WO IV CONT LOCATION: [facility] DATE: 07/19/2023 INDICATION: Hallucinations, confusion, unknown baseline [...] PERFORM (LAB) Done 07/19/2023 10:00 AM CDT [facility] Other Specimen Type IV Start / Unknown 07/19/2023 8:37 AM CDT 07/19/2023 8:45 AM CDT Sarah Aguirre MD LAB_1 [facility] [address] [place] [address] * TSH (07/19/2023 5:47 AM CDT) Pathologist [facility] TSH, Sensitive 0.57 0.30 - 4.50 uIU/mL 07/19/2023 10:36 AM CDT [facility] Blood Venipuncture / Unknown 07/19/2023 5:47 AM CDT 07/19/2023 6:06 AM CDT Sarah Aguirre MD LAB_[address] * (ABNORMAL) CK, Total (07/19/2023 5:47 AM CDT) [facility] CK, Total 1,071(H) 30 - 200 U/L 07/19/2023 6:40 AM [facility] Blood Venipuncture / Unknown 07/19/2023 5:47 AM CDT 07/19/2023 6:06 AM CDT Camilo Montero PA-C LAB_1 Performing Organization Address [facility]/ZIP Co de Phone Number [address] * (ABNORMAL) Basic Metabolic Panel (07/19/2023 5:47 AM CDT) [facility] Sodium 138 136 - 145 mmol/L 07/19/2023 6:40 AM [facility] Potassium 3.3(L) 3.5 - 5.1 mmol/L 07/19/2023 6:40 AM [facility] Chloride 104 98 - 109 mmol/L 07/19/2023 6:40 AM [facility] CO2 21 20 - 29 mmol/L 07/19/2023 6:40 AM [facility] Anion Gap 13 6 - 16 mmol/L 07/19/2023 6:40 AM [facility] Calcium 9.1 8.4 - 10.4 mg/dL 07/19/2023 6:40 AM [facility] BUN 34(H) 7 - 26 mg/dL 07/19/2023 6:40 AM [facility] Creatinine 2.11(H) 0.73 - 1.18 mg/dL 07/19/2023 6:40 AM [facility] Glucose 80 70 - 100 mg/dL 07/19/2023 6:40 AM [facility] Comment:The given reference range is for the fasting state. Non-fasting reference range for glucose is 70 - 180 mg/dL. GFR, Estimated 36(L) >60 mL/min/1.7 3m2 07/19/2023 6:40 AM [facility] Blood Venipuncture / Unknown 07/19/2023 5:47 AM CDT 07/19/2023 6:06 AM T Camilo Montero PA-C LAB_1 Performing Organization Address City/State/[facility] Co de Phone Number [address] * (ABNORMAL) Complete Blood Count-No Diff (07/19/2023 5:47 AM CDT) WBC 14.1(H) 3.5 - 10.5 x10(9)/L 07/19/2023 6:14 AM [facility] RBC 5.86(H) 4.32 - 5.72 x10(12)/L 07/19/2023 6:14 AM [facility] Hemoglobin 17.1 13.5 - 17.5 g/dL 07/19/2023 6:14 AM [facility] HCT 51.7(H) 38.8 - 50.0 % 07/19/2023 6:14 AM [facility] MCV 88.2 80.0 - 100.0 fL 07/19/2023 6:14 AM [facility] MCH 29.2 27.6 - 33.3 pg 07/19/2023 6:14 AM [facility] MCHC 33.1 31.5 - 35.2 g/dL 07/19/2023 6:14 AM [facility] RDW 13.9 11.9 - 15.5 % 07/19/2023 6:14 AM [facility] Platelets 178 150 - 450 x10(9)/L 07/19/2023 6:14 AM [facility] Automated NRBC 0 <=0 /100 WBC 07/19/2023 6:14 AM CDT [facility] Blood Venipuncture / Unknown 07/19/2023 5:47 AM CDT 07/19/2023 6:06 AM CDT Camilo Montero PA-C LAB_1 Performing Organization Address [facility] Co de Phone Number [address] * IV Insertion, LST Perform (07/19/2023 4:51 AM CDT) IV INSERTION, LST PERFORM (LAB) Done 07/19/2023 7:00 AM T [facility] Other Specimen Type IV Start / Unknown 07/19/2023 4:51 AM CDT 07/19/2023 5:31 AM CDT Camilo Montero PA-C LAB_1 Performing Organization Address [facility] Phone Number [address] * IV Insertion, LST Perform (07/19/2023 12:45 AM CDT) IV INSERTION, LST PERFORM (LAB) Done 07/19/2023 3:01 AM [facility] Other Specimen Type IV Start / Unknown 07/19/2023 12:45 AM CDT 07/19/2023 1:22 AM CDT Camilo Montero PA-C LAB_1 Performing Organization Address [facility] Co de Phone Number [address] * (ABNORMAL) Blood Gas, Venous (07/19/2023 12:45 AM CDT) PH, Venous 7.41 7.31 - 7.41 07/19/2023 12:54 AM T [facility] PCO2, Venous 46 40 - 52 mmHg 07/19/2023 12:54 AM T [facility] PO2, Venous 32 30 - 50 mmHg 07/19/2023 12:54 AM [facility] HCO3, Calculated 28.9 23.0 - 30.0 mmol/L 07/19/2023 12:54 AM [facility] O2 Saturation, Measured, Venous 59.5(L) 60.0 - 80.0 % 07/19/2023 12:54 AM [facility] Base Excess, Calculated 3.1(H) -2.0 - 2.0 mmol/L 07/19/2023 12:54 AM [facility] Blood Venipuncture / Unknown 07/19/2023 12:45 AM CDT 07/19/2023 12:50 AM CDT Sánchez Ramírez DO LAB_1 Performing Organization Address City/State/[facility] Co de Phone Number [facility] [address] [place], [place] [id number] [place] [address] * (ABNORMAL) Basic Metabolic Panel (07/19/2023 12:45 AM CDT) Sodium 138 136 - 145 mmol/L 07/19/2023 1:22 AM [facility] Potassium 5.1 3.5 - 5.1 mmol/L 07/19/2023 1:22 AM [facility] Comment:Specimen moderately hemolyzed. Hemolysis may affect result. Chloride 102 98 - 109 mmol/L 07/19/2023 1:22 AM [facility] CO2 22 20 - 29 mmol/L 07/19/2023 1:22 AM [facility] Anion Gap 14 6 - 16 mmol/L 07/19/2023 1:22 AM [facility] Calcium 9.4 8.4 - 10.4 mg/dL 07/19/2023 1:22 AM [facility] BUN 40(H) 7 - 26 mg/dL 07/19/2023 1:22 AM [facility] Creatinine 2.60(H) 0.73 - 1.18 mg/dL 07/19/2023 1:22 AM [facility] Glucose 99 70 - 100 mg/dL 07/19/2023 1:22 AM [facility] Comment:The given reference range is for the fasting state. Non-fasting reference range for glucose is 70 - 180 mg/dL. GFR, Estimated 28(L) >60 mL/min/1.7 3m2 07/19/2023 1:22 AM CDT [facility] Blood Venipuncture / Unknown 07/19/2023 12:45 AM CDT 07/19/2023 12:50 AM CDT Sánchez Aylin Ramírez DO LAB_1 Performing Organization Address [facility] de Phone Number [address] * INPATIENT TELEMETRY MONITORING (07/19/2023 12:04 AM CDT) TELE P-R INTERVAL 0.18 [facility] TELE QRS DURATION 0.08 [facility] TELE R-R INTERVAL 0.54 [facility] TELE QT 0.26 [facility] TELE QTC 0.35 [facility] TELE INTERPRETATION Sinus Tachy MONTEZ RN [facility] 07/19/2023 12:0 4 AM CDT Narrative [facility] - 07/19/2023 12:15 AM CDT Sinus Tachy ??MONTEZ, RN Interface Provider EKG Performing Organization Address [facility] de Phone Number [facility] [address] [place] [address] * (ABNORMAL) Lactate Panel, Venous POCT (07/18/2023 10:18 PM CDT) Pathologist [facility] Lactate, Whole Blood 0.78 0.50 - 2.00 mmol/L 07/18/2023 10:21 PM CDT [facility] PO2, Venous 129(H) 30 - 50 mmHg 07/18/2023 10:21 PM CDT [facility] Performing Location [facility] ED B 07/18/2023 10:21 PM CDT [facility] Blood 07/18/2023 10:1 8 PM CDT 07/18/2023 10:21 PM CDT Sánchez Ramírez DO LAB_1 Performing Organization Address [facility] [place] [address], [facility] * Blood Type second draw (07/18/2023 8:50 PM CDT) ABO O 07/18/2023 9:34 PM CDT [facility] RH Positive 07/18/2023 9:34 PM CDT [facility] Blood Venipuncture / Unknown 07/18/2023 8:50 PM CDT 07/18/2023 9:07 PM CDT Hilary Reyna MD LAB_1 Performing Organization Address City/[facility] Co de Phone Number [facility] [address] [place] [address] * Extra Blue top tube (07/18/2023 8:45 PM CDT) Extra Blue Top Drawn Specimen will be held for 24 hours 07/18/2023 10:01 PM CDT [facility] Blood 07/18/2023 8:45 PM CDT 07/18/2023 9:00 PM CDT Cristo Lozano MD LAB_1 Performing Organization Address [facility] Co de Phone Number [address] * Extra [place]/BB Hold (07/18/2023 8:45 PM CDT) Extra [place]/Bank Tube Drawn Received in BB 07/18/2023 9:06 PM CDT [facility] Blood 07/18/2023 8:45 PM CDT 07/18/2023 8:59 PM CDT Cristo Lozano MD LAB_1 Performing Organization Address [facility] de Phone Number [facility] [address] [place] [address] * Phosphorus (07/18/2023 8:44 PM CDT) Phosphorus 3.9 2.3 - 4.7 mg/dL 07/18/2023 10:47 PM CDT [facility] Blood Venipuncture / Unknown 07/18/2023 8:44 PM CDT 07/18/2023 8:54 PM CDT Sánchez Ramírez DO LAB_1 Performing Organization Address City/[facility]/ZIP Co de Phone Number [address] * Magnesium (07/18/2023 8:44 PM CDT) Magnesium 2.2 1.6 - 2.6 mg/dL 07/18/2023 10:47 PM CDT [facility] Blood Venipuncture / Unknown 07/18/2023 8:44 PM CDT 07/18/2023 8:54 PM CDT Sánchez Ramírez DO LAB_1 Performing Organization Address [facility] Co de Phone Number [address] * (ABNORMAL) Beta Hydroxybutyrate (07/18/2023 8:44 PM CDT) Beta Hydroxybutyrate 1.78(H) 0.02 - 0.27 mmol/L 07/18/2023 10:47 PM CDT [facility] Blood Venipuncture / Unknown 07/18/2023 8:44 PM CDT 07/18/2023 8:54 PM CDT Sánchez Ramírez DO LAB_1 Performing Organization Address [facility] Co de Phone Number [address] * (ABNORMAL) CK, Total (07/18/2023 8:44 PM CDT) CK, Total 782(H) 30 - 200 U/L 07/18/2023 10:59 PM CDT [facility] Blood Venipuncture / Unknown 07/18/2023 8:44 PM CDT 07/18/2023 8:54 PM CDT Sánchez Ramírez DO LAB_1 Performing Organization Address City/[facility]/ZIP Co de Phone Number [address] * Salicylate Level (07/18/2023 8:44 PM CDT) Salicylate <5 <=5 mg/dL 07/18/2023 9:22 PM CDT [facility] Comment:This may be a toxic clinical scenario, depending on age, kidney function, and ingestion time. Contact the Toxicology service with questions. Blood Venipuncture / Unknown 07/18/2023 8:44 PM CDT 07/18/2023 8:54 PM CDT Sánchez Viera Desiree COFFEY LAB_1 Performing Organization Address [facility] de Phone Number [address] * Acetaminophen Level (07/18/2023 8:44 PM CDT) Pathologist [facility] Acetaminophen <3 <=3 mcg/mL 07/18/2023 9:22 PM T [facility] Comment:This may be a toxic clinical scenario, depending on ingestion time and comorbidities. Contact the Toxicology Service with questions. Blood Venipuncture / Unknown 07/18/2023 8:44 PM CDT 07/18/2023 8:54 PM CDT Sánchez Whitmoremaria luisa LAB_1 Performing Organization Address [facility] Phone Number [address] * (ABNORMAL) Complete Blood Count -no Diff (07/18/2023 8:44 PM CDT) Pathologist [facility] WBC 19.2(H) 3.5 - 10.5 x10(9)/L 07/18/2023 9:13 PM [facility] RBC 6.61(H) 4.32 - 5.72 x10(12)/L 07/18/2023 9:13 PM T [facility] Hemoglobin 19.1(H) 13.5 - 17.5 g/dL 07/18/2023 9:13 PM [facility] HCT 57.5(H) 38.8 - 50.0 % 07/18/2023 9:13 PM [facility] MCV 87.0 80.0 - 100.0 fL 07/18/2023 9:13 PM [facility] MCH 28.9 27.6 - 33.3 pg 07/18/2023 9:13 PM [facility] MCHC 33.2 31.5 - 35.2 g/dL 07/18/2023 9:13 PM [facility] RDW 15.0 11.9 - 15.5 % 07/18/2023 9:13 PM [facility] Platelets 224 150 - 450 x10(9)/L 07/18/2023 9:13 PM [facility] Automated NRBC 0 <=0 /100 WBC 07/18/2023 9:13 PM [facility] Blood Venipuncture / Unknown 07/18/2023 8:44 PM CDT 07/18/2023 9:00 PM CDT Sánchez Ramírez DO LAB_1 Performing Organization Address City/State/[facility] Co de Phone Number [address] * (ABNORMAL) Basic Metabolic Panel (07/18/2023 8:44 PM CDT) Sodium 142 136 - 145 mmol/L 07/18/2023 9:22 PM [facility] Potassium 3.8 3.5 - 5.1 mmol/L 07/18/2023 9:22 PM [facility] Comment:Specimen slightly he molyzed. Hemolysis may affect result. Chloride 106 98 - 109 mmol/L 07/18/2023 9:22 PM [facility] CO2 18(L) 20 - 29 mmol/L 07/18/2023 9:22 PM [facility] Anion Gap 18(H) 6 - 16 mmol/L 07/18/2023 9:22 PM [facility] Calcium 9.9 8.4 - 10.4 mg/dL 07/18/2023 9:22 PM [facility] BUN 43(H) 7 - 26 mg/dL 07/18/2023 9:22 PM [facility] Creatinine 3.40(H) 0.73 - 1.18 mg/dL 07/18/2023 9:22 PM [facility] Glucose 89 70 - 100 mg/dL 07/18/2023 9:22 PM [facility] Comment:The given reference range is for the fasting state. Non-fasting reference range for glucose is 70 - 180 mg/dL. GFR, Estimated 20(L) >60 mL/min/1.7 3m2 07/18/2023 9:22 PM CDT [facility] Blood Venipuncture / Unknown 07/18/2023 8:44 PM CDT 07/18/2023 8:54 PM CDT Sánchez Viera Desiree COFFEY LAB_1 Performing Organization Address [facility] Co de Phone Number [address] * Alcohol (ethyl) Level (07/18/2023 8:44 PM CDT) Pathologist [facility] Ethyl Alcohol <0.01 <=0.01 g/dL 07/18/2023 9:22 PM CDT [facility] Blood Venipuncture / Unknown 07/18/2023 8:44 PM CDT 07/18/2023 8:54 PM CDT [facility] - 07/18/2023 9:22 PM CDT For medical purposes only; not valid for forensic, legal, or employment use. Sánchez Viera Desiree COFFEY LAB_1 Performing Organization Address [facility] Co de Phone Number [address] * ECG 12-Lead STAT (07/18/2023 8:29 PM CDT) Ventricular Rate 120 BPM [facility] Atrial Rate 120 BPM [facility] P-R Interval 144 ms [facility] QRS Duration 84 ms [facility] QT 328 ms [facility] QTc 463 ms [facility] P [place] 57 degrees MUSE [facility] R [place] 34 degrees MUSE [facility] T [place] 171 degrees M[facility] 07/18/2023 8:29 PM [...] 07/19/2023 11:53:09 AM Elo Benito MD EKG [facility] [address] [place] [address] documented in this encounter Visit Diagnoses Diagnosis [...] Nj RN - 07/20/2023 2:35 PM CDT [facility] Nursing Transfer Note Admission Date/Time: 07/18/2023 [...] Yes * Plan of Care - Melly Meyer, EXTENSION WORK DIRECTOR - 07/20/2023 11:05 AM CDT [facility] Social Work Progress Note Data: Per Lukasz Josue PA-C, pt is medically cleared for in-patient psychiatry. Pt has [facility], which is out of network, so rewriter called [facility], [facility] and [facility], and no one has [facility], in-patient psychiatry bed for pt. Pt will be transferred to in-patient psychiatry at [facility]. Pt was admitted to [facility] on 07/18/23 from the ER in [place] for AMS and ingestion. Psychiatry was consulted for Assessment for suicide attempt, Decisional/Cognitive capacity, Concern suicide attempt- pt admitted with ingestion. Per H&P- when asked about how many pills he took, he stated ? not enough. Per the court database, pt does not appear to have a history of civil commitment in [place]. Pt was recently psychiatrically hospitalized on [facility] from 05/08/23-05/10/23 for symptoms of the patient's current psychiatric condition include arrest for DUI, disorganization, paranoia. Genet Treadwell PA-C, diagnosed pt with: Encephalopathy Psychosis Hx of Bipolar Disorder vs schizaffective disorder vs paranoid personality disorder Likely polysubstance use disorder (hx of alcohol, benzos/xanax,meth) Hx of PTSD Legal Status: Voluntary per [employer] - anticipate a 72-hour hold at the time of transfer to in- patient psychiatry Collateral Contacts Collateral Contacts: Other Contact 1, Family/Friend Family/Friend Contact Name: Carlos Alvarado - Parents Family/Friend Contact or [phone] Other Contact Name : Salvatore Alvarado - Son Other Contact Action Plans: Forestry Consultant is available for mental health support and [...] the night. PRN valilum per MAY x2. [facility]. Practitioner Notified Note Name of Practitioner notified: Devendra Hensley Time of Practitioner notification: 1:44 AM Reason: [id number] Deanne Steven. - Gave zyprexa PRN around an hour ago. Per may - pt responded well. Less agitated and sleeping. Response: no response * Plan of Care - Elizabeth Maciel RN - 07/19/2023 6:56 PM CDT [facility]. Plan of Care Note NEURO: A&Ox3, disoriented [...] Denies nausea. Tolerating PO diet. Events: - 1830: Pt saying just put a [...] in room with eyes closed. Assumed Cares: [id number]. [facility]. Practitioner Notified Note Name of Practitioner notified: Devendra Hensley Time of Practitioner notification: 11:56 PM Reason: [id number] Maurizio, T. Having increased ectopy. K pill replacement? Won't do drink or IV replace. Also FYI LR stopped, yelling about IV. Thx! Response: Page sent. Report given to oncoming nurse * Plan of Care - Karen Claudio RN - 07/19/2023 3:31 PM CDT [facility] Plan of Care Note Assessment: tele, suicide [...] hyperventilating after [facility] called. Assumed cares between 1434-3760. --- End of Report --- * Plan of Care - Linda Isaac RN - 07/19/2023 1:00 PM CDT [facility]. Practitioner Notified Note Name of Practitioner notified: MD Aguirre Time of Practitioner notification: 1:00 PM Reason: T.Maurizio; 7406 FYI [facility] called. pt hyperventilating with increased agitation. PRN administered~Valium. Response: FYI paged sent. [facility]. Practitioner Notified Note Name of Practitioner notified: Genet Treadwell PA-C Time of Practitioner notification: 1:04 PM Reason: [id number] T.Maurizio; pls come to bedside. pt in panic state w/increased agitation. prn administered->valium. Thank you! Response: New order for IV/PO Zyprexa ordered. * Plan of Care - Shannon Saab RN, BSN - 07/19/2023 10:36 AM CDT [facility] Care Management Screening Insurance Coverage: Payor: HU[employer] / Plan: [employer] CHOICE / Product Type: Medicare / Primary [...] to inpatient psych when medically appropriate. Shannon Saab RN, BSN * Plan of Care - Mai Blake RN - 07/19/2023 1:43 AM CDT [facility] Plan of Care Note Pt arrived to [...] PM CDT Pt arrives via EMS from [facility] after potential ingestion of pills after being [...] CDT ED Nursing Transfer Note Sending facility: [facility] Name/number: Linda [phone] Story/background: Found on basement floor. + hallucinations. [...] mg (COMPLETED) 5 mg, Intravenous, ONCE, On Wed07/18/23 at [...] dose 2045 (Started - Provider: Laurita Lindo RN)2354 (Infused - Provider: Mai Blake RN) LORazepam [...] May take 3-4 minutes to completely dissolve. 813 (Given - Provider: Karen Claudio RN) potassium [...] Mai Blake RN)0703 (Stopped - Provider: Mai E Canine, RN - Comment: IV Oc[place])0922 (Started - Provider: Karen Claudio RN) 0110 (Stopped - Provider: Anca Finney RN - [...] Q4H PRN, Heartburn, Upset Stomach, Starting on Wed07/18/23 at 2350, Until Wed07/20/23 at 1513, For indigestion/upset stomach carboxymethylcellulose PF (REFRESHPLUS) 0.5 % eye drops 1 Drop 1 Drop, Both Eyes, Q1H PRN, Dry Eyes, Itchy Eyes, Starting on Wed07/18/23 at 2350, Until Wed07/20/23 at 1513 diazePAM [...] Elizabeth Maciel RN) 0029 (Given - Provider: Laurita Pringle RN)0438 (Given - Provider: Laurita Pringle RN) melatonin tablet 6 mg 6 mg, Oral, HS PRN, Sedation, Starting on 07/18/23 at 2350, Until Wed07/20/23 at 1513 nystatin (MYCOSTATIN) 233715 UNIT/GM topical powder Topical, BID PRN, Other, [...] RN) 002 (See Alternative - Provider: Laurita Pringle RN) OLANZapine (ZyPREXA) tablet 5 mg(Linked Group 2) 5 mg, Oral, TID PRN, Agitation, Starting on Wed07/19/23 at 1321, Until Wed07/20/23 at 1513, Notify Practitioner in 60 minutes of MIAHTAPS medication administration with patient response. 1328 (Given - Provider: Karen Claudio RN) 0029 (Given - Provider: Laurita Pringle RN) ondansetron (ZOFRAN) injection 4 mg 4 mg, Intravenous, Q6H PRN, Nausea, Vomiting, Starting on Wed07/18/23 at 2350, Until Wed07/20/23 at 1513, Give 1st line medications, then [...] Oral, Q6H PRN, Nausea, Vomiting, Starting on Wed07/18/23 at 2350, Until Wed07/20/23 at 1513, Give 1st line medications, then [...] stool in the last day, Starting on 07/18/23 at 2350, Until Wed07/20/23 at 1513, Cumulative [...] chloride (OCEAN) 0.65 % nasal solution 1 [place] 1 [place], Both Nostrils, Q2H PRN, Dry Nose, Starting on 07/18/23 at 2350, Until Wed07/20/23 at 1513 Linked Groups Order Group 1: senna (SENOKOT) tablet 2 TabletJump to med 2 Tablet, Oral, BID PRN, Constipation, No stool in the last day, Starting on 07/18/23 at 2350, Until Wed07/20/23 at 1513, Cumulative [...] mg/mL documented in this encounter Care Teams Hydraulic Riveter Relationship Specialty Start Date End Date Briana Vazquez PA-C [address] [place] [address] PCP - General Physician Pill Coater 11/29/19 documented as of this encounter
--- OUTSIDE RECORDS SUMMARY | 2023-09-27 08:05 | XMS_ITS | Encounter Summary ---
Author Organization [facility] Address [address] [address] Care Team Providers Care Director Statistical Programming Name Role Phone Briana Vazquez PA-C Primary Care Provider [phone] Encounter Details Date Type Department Care Team [...] COVID19 05/07/2023 05/07/2023 05/07/2023 10:3 4 AM SOCIAL MEDIA MANAGER documented as of this encounter Care Teams Director Statistical Programming Relationship Specialty Start Date End Date Briana Vazquez PA-C [address] [place] [address] PCP - General Physician Aviation [employer] 11/29/19 documented as of this encounter
--- OUTSIDE RECORDS SUMMARY | 2023-09-27 08:05 | XMS_ITS | Encounter Summary ---
Author Organization [employer] Address [address], [place] [address] Care Team Providers Care Marine Firefighter Name Role Phone Briana Vazquez PA-C Primary Care Provider [phone] Reason for Visit * Auth/Cert (Routine) Specialty Diagnoses / Procedures Referred By Contac t Referred To Contact Diagnoses Agitation USAMA (acute kidney injury) (HRC) Intentional overdose, initial encounter (HRC) Tachycardia Hypertension, unspecified type (HRC) AMS USAMA (acute kidney injury) (HRC) Intentional overdose, initial encounter (HRC) Agitation Tachycardia Hypertension, unspecified type (HRC) Referral ID Status Reason Start Date Expiration Date Visits Re quested Visits Authorized [id number] 1 1 Encounter Details Date Type Department Care Team (Late st Contact Info) Description 07/19/2023 10:05 AM CDT Ancillary Procedure [facility] [address] [address] Social History Tobacco Use Types Packs/Day Years [...] EXAM: CT HEAD WO IV CONT LOCATION: [facility] DATE: 07/19/2023 INDICATION: Hallucinations, confusion, [...] on filedocumented in this encounter Care Teams Marine Firefighter Relationship Specialty Start Date End Date Briana Vazquez PA-C [address] [place] [address] PCP - General Physician Psychological Operations Specialist 11/29/19 documented as of this encounter
--- OUTSIDE RECORDS SUMMARY | 2023-09-27 08:05 | XMS_ITS | Encounter Summary ---
Author Organization [facility] Address [address], [place] [address] Care Team Providers Care Preschool Associate Teacher Name Role Phone Briana Vazquez PA-C Primary Care Provider [phone] Encounter Details Date Type Department Care Team [...] COVID19 05/07/2023 05/07/2023 05/07/2023 10:3 4 AM HARDWOOD FLOORING SPECIALIST documented as of this encounter Care Teams Preschool Associate Teacher Relationship Specialty Start Date End Date Briana Vazquez PA-C [address] [place] [address] PCP - General Physician Wind Energy Technician 11/29/19 documented as of this encounter
--- OUTSIDE RECORDS SUMMARY | 2023-09-27 08:05 | XMS_ITS | Encounter Summary ---
Author Organization [employer] Address [address] [place] [address] Care Team Providers Care Ob/Gyn Nurse Name Role Phone Briana Vazquez PA-C Primary Care Provider [phone] Encounter Details Date Type Department Care Team (Late st Contact Info) Description 07/29/2016 Refill Order [facility] [place] [address] [place] [address] [place] [address] [place], [place] [id number] Social History Tobacco Use Types Packs/Day Years [...] COVID19 05/07/2023 05/07/2023 05/07/2023 10:3 4 AM WIRE ANNEALER documented as of this encounter Care Teams Ob/Gyn Nurse Relationship Specialty Start Date End Date Briana Vazquez PA-C [address] [place] [address] PCP - General Physician Geological Scout 11/29/19 documented as of this encounter
--- OUTSIDE RECORDS SUMMARY | 2023-09-27 08:05 | XMS_ITS | Encounter Summary ---
Author Organization [employer] [facility] Address [address] [address] Care Team Providers Care Drill Press Operator Helper Name Role Phone Briana Vazquez PA-C Primary Care Provider [phone] Encounter Details Date Type Department Care Team [...] COVID19 05/07/2023 05/07/2023 05/07/2023 10:3 4 AM HEALTH UNDERWRITER documented as of this encounter Care Teams Drill Press Operator Helper Relationship Specialty Start Date End Date Briana Vazquez PA-C [address] [place] [address] PCP - General Physician Sprinkler Worker 11/29/19 documented as of this encounter
[2023-09-27] MEDS: LACTATED RINGERS 1000 ML 1,000 ML 100 ML IV (08:53)
[2023-09-27] MEDS: SODIUM CHLORIDE 0.9 % (FLUSH) 10 ML SYRINGE IVF (08:54)
[2023-09-27] MEDS: BUPIVACAINE 0.25% 30 ML 10 ML INJECTION (10:05)
[2023-09-27] MEDS: CEFAZOLIN 2 GM INJ IVP (10:05)
--- NOTE | 2023-09-27 10:57 | PM.GSPRC ---
Operative Note Date of procedure: 09/27/23 Pre-op diagnosis: 1. Symptomatic umbilical hernia. Post-op diagnosis: Same Type of Procedure: 1. Open umbilical hernia repair with mesh. Indications: 57-year-old male was seen in clinic for evaluation of an umbilical bulge. Patient initially noticed this bulge several months ago. In the last 3 weeks he noticed that the bulge has increased in size. He denied pain at the bulge. On clinical exam patient was found to have is slightly smaller than a golf ball size bulge in the center of the umbilicus. This was reducible. Patient had some pain with reducing his hernia. Given patient's clinical history and enlarging nature of his umbilical hernia, and open umbilical hernia repair was recommended. The procedure was discussed in detail. The risks associated procedure including infection, bleeding, injury to intra-abdominal organs, and hernia recurrence were all discussed with the patient, and he agreed to proceed. Procedure Description: After discussing the risks and benefits of the procedure, the patient signed informed consent.? The operative site was marked and the patient was brought to the operating room and placed on the operating table in supine position.? Care was taken to pad the patient's pressure points.?? The patient was then intubated by anesthesia.?? The operative site was then prepped and draped in the usual sterile fashion.? A time-out was then performed. Local anesthetic was injected at the surgical site. A curvilinear skin incision was made with a scalpel just below umbilicus. Subcutaneous tissue was dissected with electrocautery down to the hernia sac and anterior fascia. The hernia sac was dissected off of the anterior fascia and subcutaneous fat around the fascial defect was dissected away from the fascial defect with cautery. I then developed preperitoneal space for mesh insertion. The fascial defect was approximately 1.5 cm, and the surrounding fascia was weakened. During this dissection small opening was created in peritoneum and this was oversewn with 3-0 Vicryl suture. A 6 cm in diameter Ventralex ST mesh patch was then inserted into preperitoneal space and secured to the fascia using 0-0 Neurolon interrupted stitches. I examined my closure and no defects were identified between the fascia and the mesh. Fascia was re-approximated over the mesh with a running 2-0 Vicryl stitch. Additional local anesthetic was injected into subcutaneous tissues. An umbilicus was tacked down with interrupted 3-0 Vicryl stitches. Subdermal layer was closed with interrupted sutures using 3-0 Vicryl. Skin was closed with 4-0 Monocryl using subcuticular stitch. Steri strips were applied over the incision. I then placed a folded sterile 2 x 2 and 4x4 gauze over the incision and covered it with tape. All counts were correct at the end of the case. Patient tolerated the procedure well and was transferred to PACU without any complications. Implants: Ventralex ST mesh Anesthesia: GETA Surgeon: Evelyn Grant MD Estimated blood loss (mL): 5 Condition: stable Disposition: PACU
--- NOTE | 2023-09-27 10:57 | W.PM.H&PU ---
History & Physical Update History & Physical Update H&P Reviewed and patient assessed: No changes noted
--- NOTE | 2023-09-27 11:00 | W.ANESCHARGE ---
Anesthesia Charges Start Date/Time Anesthesia Start Date: 09/27/23 Anesthesia Start Time: 09:49 Stop Date/Time Anesthesia Stop Date: 09/27/23 Anesthesia Stop Time: 11:02
--- NOTE | 2023-09-27 11:13 | W.ANESCHARGE ---
Anesthesia Charges Start Date/Time Anesthesia Start Date: 09/27/23 Anesthesia Start Time: 09:49 Stop Date/Time Anesthesia Stop Date: 09/27/23 Anesthesia Stop Time: 11:02
[2023-09-27] MEDS: fentaNYL 100 MCG/2 ML inj 50 MCG IVP (11:28)
--- NOTE | 2023-09-27 11:42 | SUR.PHASEI ---
Patient meets anesthesia discharge criteria for PACU
--- NOTE | 2023-09-27 12:07 | SUR.PHASEII ---
PATIENT TOLERATING WATER, YOGURT, AND CRACKERS.
[2023-09-27] MEDS: HYDROCODONE-ACETAMIN 5-325 MG 1 TAB PO ×2 (12:12→12:30)
== END 2023-09-27 13:02 | disposition home or self-care (01) ==
PROVIDERS: PCP Family Medicine; Visit Provider Surgery
PROC: (CPT 49591; principal; 2023-09-27 09:30)
DX: K42.9 Umbilical hernia without obstruction or gangrene (principal)
CPT/HCPCS: 49591; 00830; A9270; C1781; J0665; J0690; J1100; J2250; J2405; J2704; J3010; J3490; J7120

== ENCOUNTER 2023-11-09 03:00 | Inpatient (IN) | payer OTHER, MEDICAID, SELFPAY ==
[2023-11-09] VITALS (36 sets, daily range): BP systolic 82–165; BP diastolic 52–90; PULSE 70–101; RESP 12–28; TEMP 36.4–36.9; O2SAT 75–97; BMI 28.4; BMI 29.7
--- NOTE | 2023-11-09 03:18 | CRLHL7_ITS ---
For Patients: As a result of the Century Cures Act, medical imaging exams and procedure reports are released immediately into your electronic medical record. You may view this report before your referring provider. If you have questions, please contact your health care provider. INDICATION: Shortness of breath. TECHNIQUE: Chest 1 view. COMPARISON: 03/11/2023. FINDINGS: Cardiovascular and mediastinum: Stable mild cardiomegaly. Lungs and pleural spaces: No consolidation. No pleural effusions or pneumothorax. Bones and soft tissues: No significant findings. IMPRESSION: Stable mild cardiomegaly without evidence of acute pulmonary process. Dictated by Caden Espinoza MD @ 11/09/2023 3:46:42 AM (Electronically Signed)
--- NOTE | 2023-11-09 03:29 | ED.GENADULT ---
HPI - General Adult General Chief complaint: Shortness of Breath/Dyspnea Stated complaint: Short of breath Time Seen by Provider: 11/09/23 03:08 History of Present Illness HPI narrative: Pt states he began having shortness of breath tonight at 2400, woke up and was breathing heavy . Pt's mother brought pt here . Also c/o discomfort across his chest, rates 9/ 10.Pt states he took two xanax and thought they would help his breathing. Had pneumonia two weeks ago. Also states he bent over to tie his shoes before coming in and a bunch of black stuff came out my nose. 57-year-old man presenting to the emergency department with concern of shortness of breath. Apparently just woke up around midnight, about 3 hours ago and was breathing heavily, rapidly. Is having some discomfort across his chest. First thing reports in conversation is that he took a couple Xanax thinking the might help this feeling. He does described having head CT imaging couple of weeks ago and thought to have had a low-lying pneumonia was given a course of Levaquin. Apparently coughed up some ?black stuff? though is also described as having come out of his nose when he had bent over. Has not had any fever. Was not having any significant trouble breathing before going to bed. He is not reporting any abdominal pain. He does report that he was noticed recently to have had a slightly enlarged heart. Later questioning reveals he did go to an area clinic in [place] 2 weeks ago. Was treated with Levaquin and prednisone for a potential pneumonia Related Data Home Medications ?Medication ?Instructions ?Recorded ?Confirmed calcium 600 mg-D3 20 mcg-magnesium tab PO 11/16/22 10/01/23 40 gx-sqvnwo-rfic-zinc chew tablet multivitamin (Daily Multi-Vitamin 1 tab PO QDAY 11/16/22 10/01/23 tablet) loperamide 2 mg tablet (Imodium 2 mg PO Q6H PRN 12/15/22 10/01/23 A-D) trazodone 100 mg tablet 100 mg PO QHS 03/11/23 10/01/23 amitriptyline 100 mg tablet 100 mg PO QHS 09/24/23 10/01/23 amlodipine 5 mg tablet 5 mg PO DAILY 09/24/23 10/01/23 aspirin 81 mg chewable tablet 81 mg PO DAILY 09/24/23 10/01/23 diclofenac sodium 50 mg 75 mg PO BID 09/24/23 10/01/23 tablet,delayed release gabapentin 300 mg capsule 1,200 mg PO TID 09/24/23 10/01/23 methocarbamol 750 mg tablet 750 mg PO Q8H PRN 09/24/23 10/01/23 olanzapine 2.5 mg tablet 10 mg PO QHS 09/24/23 10/01/23 omeprazole 20 mg capsule,delayed 20 mg PO DAILY 09/24/23 10/01/23 release vardenafil 20 mg tablet 20 mg PO DAILY PRN 09/24/23 10/01/23 omega 5-jzk-dto-fish oil 1,000 mg 1 cap PO DAILY 09/27/23 10/01/23 (120 mg-180 mg) capsule (Fish Oil) propranolol 20 mg tablet mg PO 10/01/23 10/01/23 Previous Rx's ?Medication ?Instructions ?Recorded tamsulosin 0.4 mg capsule (Flomax) 0.4 mg PO QDAY #90 caps 06/19/22 atorvastatin 20 mg tablet 20 mg PO QDAY #90 tabs 11/02/22 desonide 0.05 % topical cream 1 applic topical BID #60 grams 11/16/22 valacyclovir 1 gram tablet 1,000 mg PO QDAY #90 tabs 12/14/22 testosterone cypionate 200 mg/mL 200 mg IM Q2W #6 mL 01/06/23 intramuscular oil (Depo-Testosterone) prazosin 2 mg capsule 2 mg PO QPM #90 caps 01/07/23 folic acid 1 mg tablet 1 mg PO DAILY #30 tabs 03/14/23 ropinirole 2 mg tablet 2 mg PO BID #180 tabs 03/22/23 escitalopram oxalate 20 mg tablet 10 - 20 mg (0.5 - 1 x 20 mg) PO 04/19/23 (Lexapro) QDAY #30 tabs metoprolol succinate 100 mg 100 mg PO QDAY #90 ea 05/06/23 capsule sprinkle, ext. release 24 hr quetiapine 400 mg tablet (Seroquel) 800 mg (2 x 400 mg) PO QHS #60 tabs 06/04/23 hydrocodone 5 mg-acetaminophen 325 1 tab PO Q6H PRN pain #20 tabs 07/22/24 mg tablet polyethylene glycol 3350 17 17 g PO DAILY #119 grams 09/27/23 gram/dose oral powder (Natura-LAX) Allergies Allergy/AdvReac Type Severity Reaction Status Date / Time valproic acid AdvReac Intermediate excessive Verified 10/01/23 11:04 sedation naltrexone AdvReac Unknown Verified 10/01/23 11:04 Review of Systems Status of ROS: Reports: 6 or more systems reviewed and unremarkable except as noted in History and below [facility] Medical History Fracture of left wrist with malunion ?S62.102P - Fracture of unspecified carpal bone, left wrist, subsequent encounter for fracture with malunion (ICD-10) Marijuana abuse ?F12.10 - Cannabis abuse, uncomplicated (ICD-10) Primary hypertension ?I10 - Essential (primary) hypertension (ICD-10) Mixed hyperlipidemia ?E78.2 - Mixed hyperlipidemia (ICD-10) Rupture of right biceps tendon ?S46.211A - Strain of muscle, fascia and tendon of other parts of biceps, right arm, initial encounter (ICD-10) 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) ?F15.21 - Other stimulant dependence, in remission (ICD-10) Allergic rhinitis ?J30.9 - Allergic rhinitis, unspecified (ICD-10) Seborrheic dermatitis ?L21.9 - Seborrheic dermatitis, unspecified (ICD-10) Chronic pain of both shoulders ?M25.511 - Pain in right shoulder (ICD-10) ?M25.512 - Pain in left shoulder (ICD-10) ?G89.29 - Other chronic pain (ICD-10) BPH (benign prostatic hyperplasia) ?N40.0 - Benign prostatic hyperplasia without lower urinary tract symptoms (ICD-10) Spondylosis of cervical spine with radiculopathy (09/06/19) ?M47.22 - Other spondylosis with radiculopathy, cervical region (ICD-10) Restless legs syndrome ?G25.81 - Restless legs syndrome (ICD-10) Posttraumatic stress disorder ?F43.10 - Post-traumatic stress disorder, unspecified (ICD-10) Photokeratitis of both eyes (07/31/18) ?H16.133 - Photokeratitis, bilateral (ICD-10) Insomnia ?G47.00 - Insomnia, unspecified (ICD-10) Hypogonadism in male ?E29.1 - Testicular hypofunction (ICD-10) History of traumatic rupture of spleen ?Z87.828 - Personal history of other (healed) physical injury and trauma (ICD-10) History of psychoactive substance use disorder ?Z87.898 - Personal history of other specified conditions (ICD-10) History of migraine ?Z86.69 - Personal history of other diseases of the nervous system and sense organs (ICD-10) History of gastroesophageal reflux (GERD) ?Z87.19 - Personal history of other diseases of the digestive system (ICD-10) History of alcohol dependence ?F10.21 - Alcohol dependence, in remission (ICD-10) Genital herpes simplex ?A60.00 - Herpesviral infection of urogenital system, unspecified (ICD-10) Gastroesophageal reflux disease (05/16/01) ?K21.9 - Gastro-esophageal reflux disease without esophagitis (ICD-10) Erectile dysfunction ?N52.9 - Male erectile dysfunction, unspecified (ICD-10) 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 - Nightmare disorder (ICD-10) Surgical History H/O umbilical hernia repair (09/27/23) ?Z98.890 - Other specified postprocedural states (ICD-10) ?Z87.19 - Personal history of other diseases of the digestive system (ICD-10) History of arthroscopy of right shoulder (01/13/23) ?Z98.890 - Other specified postprocedural states (ICD-10) S/P arthroscopy of right shoulder (02/11/22) ?Z98.890 - Other specified postprocedural states (ICD-10) History of spinal surgery (1999) ?Z98.890 - Other specified postprocedural states (ICD-10) Status post right rotator cuff repair ?Z98.890 - Other specified postprocedural states (ICD-10) History of surgery on arm ?Z98.890 - Other specified postprocedural states (ICD-10) H/O left wrist surgery ?Z98.890 - Other specified postprocedural states (ICD-10) History of fusion of lumbar spine ?Z98.1 - Arthrodesis status (ICD-10) History of cervical spinal arthrodesis (2019) ?Z98.1 - Arthrodesis status (ICD-10) History of bunionectomy of right great toe (10/27/04) ?Z98.890 - Other specified postprocedural states (ICD-10) Social History Narrative: Lives with mother (Kathy Alvarado - medical decision maker if needed). Single, 2 kids, one son committed suicide, non-smoker, ETOH overuse (24 beers in one sitting most days of the week). Requesting Full Code status. What is your current living situation?: unable to answer Problems where you live: unable to answer Problems where you live details: N/A In the past 12 months, utilities in danger of being shut off: unable to answer In past 12 months, lack of transportation kept you from medical appts, meetings, work, or getting things needed for daily living: unable to answer In the past 12 mos, have been you worried that your food would run out before you had money to buy more?: unable to answer In the past 12 mos, the food you bought just didn't last and you didn't have money to buy more?: unable to answer Highest level of school completed/degree received: don't know Smoking Status: Former smoker Do you use any of these nicotine containing products: None Second hand tobacco smoke exposure: No How often do you have a drink containing alcohol: never How many standard drinks containing alcohol do you have on a typical day: 10 or more How often do you have six or more drinks on one occasion: Daily or almost daily AUDIT-C Alcohol total score: 8 Non-prescribed substance use: denies use Non-prescribed substance use details: pt denied use, pt states he is in treatment here in [facility]. Has interlock system on vehicle. Pt has history of ETOH and drug (amphetamine/methamphetamine) use. History of PTSD, Paranoia. Caffeine: Yes How often does anyone, including family, friends and others, physically hurt you: unable to answer How often does anyone, including family, friends and others, insult or talk down to you: unable to answer How often does anyone, including family, friends and others, threaten you with harm: unable to answer How often does anyone, including family, friends and others, scream or curse at you: unable to answer Little interest or pleasure in doing things: more than half the days Feeling down, depressed, or hopeless: more than half the days service: No Exam Narrative: Exam Narrative: On arrival is noted to be quite hypoxic. Has been placed on non-rebreather at about 12 L to sat 92%. Fully alert cranial nerves 2-12 intact. Slurring words somewhat. He is audibly quite congested in his breathing quickly of the throat though auscultation there are breath sounds throughout and diffuse crepitus particularly with expiration. No wheeze. There appears to be little dried blood is right dose. Oropharynx is dry and hyperemic. Skin is flushed/destin complected over his face. Is well-perfused peripherally. There is no lower extremity edema. Abdomen is quite protuberant/round. Tense. On initial palpation is moderately tender in the epigastrium. Heart is in regular rate and rhythm. Const: Vital Signs, click to edit/add: Vital Signs - 24 hr 11/09/23 03:10 11/09/23 03:57 11/09/23 03:57 Temperature 98.5 F Pulse Rate [Pulse Oximeter] 87 Respiratory Rate 28 H Blood Pressure [Le ft Upper Arm] 139/81 Pulse Oximetry 75 L 92 92 Oxygen Delivery Me thod Room Air OxyMask Oxygen Flow Rate 12 11/09/23 04:21 Temperature Pulse Rate [Pulse Oximeter] 87 Respiratory Rate 20 Blood Pressure [Le ft Upper Arm] 137/81 Pulse Oximetry 95 Oxygen Delivery Me thod OxyMask Oxygen Flow Rate 12 Documenting provider has reviewed patient's vital signs: yes Course Vital Signs Vital signs: Initial Vital Signs Temperature 98.5 F 11/09/23 03:10 Temperature Source Temporal Artery Scan 11/09/23 03:10 Pulse Rate 87 11/09/23 03:10 Pulse Rhythm Regular 11/09/23 03:10 Respiratory Rate 28 H 11/09/23 03:10 Blood Pressure 139/81 11/09/23 03:10 Blood Pressure Mean 100 11/09/23 03:10 Blood Pressure Position Supine 11/09/23 03:10 Pulse Oximetry 75 L 11/09/23 03:10 Oxygen Delivery Method Room Air 11/09/23 03:10 Vital Signs Temperature 98.5 F 11/09/23 03:10 Pulse Rate 87 11/09/23 03:10 Respiratory Rate 28 H 11/09/23 03:10 Blood Pressure 139/81 11/09/23 03:10 Pulse Oximetry 75 L 11/09/23 03:10 Oxygen Delivery Method Room Air 11/09/23 03:10 Temperature 98.5 F 11/09/23 03:10 Pulse Rate 87 11/09/23 04:21 Respiratory Rate 20 11/09/23 04:21 Blood Pressure 137/81 11/09/23 04:21 Pulse Oximetry 95 11/09/23 04:21 Oxygen Delivery Method OxyMask 11/09/23 04:21 Oxygen Flow Rate 12 11/09/23 04:21 Medications Administered Medications: Generic Name Dose Route Start Last Admin Trade Name Freq PRN Reason Stop Dose Admin Furosemide 40 mg/ Dextrose 104 mls @ 10 mls/hr 11/09/23 05:24 11/09/23 05:43 IVPB 11/09/23 15:47 Infused ONCE ONE Infusion Discontinued Medications Generic Name Dose Route Start Last Admin Trade Name Freq PRN Reason Stop Dose Admin Albuterol/Ipratropium 1 neb 11/09/23 03:50 11/09/23 03:56 Iprat-Albut 0.5-2.5 Mg/3 Ml Neb IH 11/09/23 03:51 1 neb ONCE ONE Administration Medical Decision Making [facility] Narrative Medical decision making narrative: Differential of concern includes pneumonia, flash pulmonary edema, exacerbation of heart failure, GI bleed, alcohol intoxication, pulmonary embolus, ischemic cardiovascular event, COVID, arrhythmia, aspiration? 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 Will need some respiratory support. Be alert for fatiguing from respiratory perspective; might need BiPAP. No reported history of reactive airway and no wheezes but might benefit from a neb. Blood gases would seem to indicate a minimally compensated respiratory acidosis. Chest x-ray reviewed by me appears to show some cardiomegaly with general congestion, mild pulmonary edema. Over-read by Radiology however as below Chest 1 view. COMPARISON: 03/11/2023. FINDINGS: Cardiovascular and mediastinum: Stable mild cardiomegaly. Lungs and pleural spaces: No consolidation. No pleural effusions or pneumothorax. Bones and soft tissues: No significant findings. IMPRESSION: Stable mild cardiomegaly without evidence of acute pulmonary process. Reassuring lactate though creatinine at 2.5 though this is similar to prior measurements D-dimer perhaps surprisingly is not elevated. On reexamination reports that he is feeling better. This is after a DuoNeb. Lungs still with diffuse crackles. Oxygenation has improved minimally. Does seem fatigued and I am unsure of baseline cognition. Would like to initiate BiPAP, possibly Lasix though concern of creatinine of 2.5. Recheck gases in an hour or so after BiPAP. Would recheck troponin around that time as well. Signing out at change of shift. Medical Records Medical records reviewed: Yes I reviewed the patient's medical records Lab Data Lab results reviewed: Yes I reviewed the patient's lab results Labs: Lab Results 11/09/23 11/09/23 Range/Units 03:19 03:30 WBC 13.11 H (4.50-11.00) K/uL RBC 5.71 (4.30-5.90) m/uL Hgb 16.6 (13.5-17.5) gm/dL Hct 52.8 (37.0-53.0) % MCV 93 (80-100) fL MCH 29 (26-34) pg MCHC 31 L (32-36) gm/dL RDW Coeff of Negro 14.9 (11.5-15.5) % Plt Count 154 (140-440) K/uL Neut % (Auto) 85.6 H (42.0-72.0) % Lymph % (Auto) 6.9 L (20-44) % Tompkins % (Auto) 4.7 (0.0-11.0) % Eos % (Auto) 2.1 (0.0-7.0) % Baso % (Auto) 0.2 (0.0-3.0) % Neut # (Auto) 11.20 H (1.7-7.0) K/uL Lymph # (Auto) 0.90 (0.90-2.90) K/uL Tompkins # (Auto) 0.60 (0.00-0.90) K/UL Eos # (Auto) 0.30 (0.00-0.50) K/uL Baso # (Auto) 0.00 (0.00-0.30) K/uL Abs Immat Gran (auto) 0.10 (0.00-0.30) K/uL Imm/Tot Granulo (auto) 0.5 % D-Dimer Quant (PE/DVT) 0.43 (0.00-0.50) ug/ml VBG pH 7.308 L (7.32-7.43) VBG pCO2 69 H* (40-50) mmHG VBG pO2 < 30.1 (25-47) mmHG VBG HCO3 34 H (21-28) mmol/L Sodium 137 (135-149) mmol/L Potassium 3.6 (3.6-5.1) mmol/L Chloride 99 (96-114) mmol/L Carbon Dioxide 34 H (20-32) mmol/L Anion Gap 4 L (7-15) mEq/L BUN 26 (7-30) mg/dL Creatinine 2.5 H (0.5-1.5) mg/dL Estimated Creat Clear 36.84 Estimated GFR 29 ml/min Glucose 124 H (60-115) mg/dL Lactate 0.8 (0.5-1.9) mmol/L Calcium 9.0 (8.4-10.6) mg/dL Magnesium 2.2 (1.5-2.6) mg/dL Troponin I < 0.01 L (0.01-0.04) ng/mL C-Reactive Protein 0.9 (0.5-1.0) mg/dL NT-Pro-B Natriuret Pep 23 pg/mL Ethyl Alcohol < 0.01 L (0.01-0.03) % SARS-CoV-2 (PCR) Negative SARS-CoV-2 (Negative) Influenza Type A (PCR) Negative PCR FLU A (Negative) Influenza Type B (PCR) Negative PCR FLU B (Negative) RSV (PCR) Negative PCR RSV (Negative) ECG Data Attestation: I personally reviewed and interpreted this ECG as follows: (Normal sinus rhythm. Some baseline irritability. I do not appreciate ischemic changes. Rate of 86) Critical Care Time Critical Care Time Critical Care Time: Yes Attestation: The patient required my highest level preparedness to intervene emergently and I personally spent this critical care time directly and personally managing the patient. This critical care time included: Obtaining a history; Examining the patient; Pulse oximetry; Ordering and reviewing of studies; Arranging urgent treatment with development of a management plan; Evaluation of patients response to treatment; Frequent reassessment discussions with other providers. This critical care time was performed to assess and manage the high probability of imminent life-threatening deterioration that could result in multiorgan failure. It was exclusive of separate billable procedures and treating other patients and teaching time. Total Critical Care Time in Minutes: 60 Discharge Plan Discharge Prescriptions: No Action multivitamin [Daily Multi-Vitamin] Tablet 1 tab PO QDAY Ca carb-D3-mag vo-bvj-dzkw-Zn 600 mg-20 mcg- 40 mg-0.25 mg tablet,chewable PO desonide 0.05 % cream 1 applic topical BID Qty: 60 1RF loperamide [Imodium A-D] 2 mg tablet 2 mg PO Q6H PRN prazosin 2 mg capsule 2 mg PO QPM Qty: 90 3RF propranolol 20 mg tablet PO atorvastatin 20 mg tablet 20 mg PO QDAY Qty: 90 3RF escitalopram oxalate [Lexapro] 20 mg tablet 10 - 20 mg PO QDAY Qty: 30 1RF Rx Instructions: 1/2 QD x 2 weeks then 1 QD trazodone 100 mg tablet 100 mg PO QHS folic acid 1 mg tablet 1 mg PO DAILY Qty: 30 2RF amitriptyline 100 mg tablet 100 mg PO QHS amlodipine 5 mg tablet 5 mg PO DAILY aspirin 81 mg tablet,chewable 81 mg PO DAILY diclofenac sodium 50 mg tablet,delayed release (DR/EC) 75 mg PO BID gabapentin 300 mg capsule 1,200 mg PO TID methocarbamol 750 mg tablet 750 mg PO Q8H PRN olanzapine 2.5 mg tablet 10 mg PO QHS omeprazole 20 mg capsule,delayed release(DR/EC) 20 mg PO DAILY vardenafil 20 mg tablet 20 mg PO DAILY PRN omega 6-gik-yig-fish oil [Fish Oil] 1,000 mg (120 mg-180 mg) capsule 1 cap PO DAILY hydrocodone-acetaminophen 5-325 mg tablet 1 tab PO Q6H PRN (Reason: pain) Qty: 20 0RF polyethylene glycol 3350 [Natura-LAX] 17 gram/dose powder 17 g PO DAILY Qty: 119 0RF tamsulosin [Flomax] 0.4 mg capsule 0.4 mg PO QDAY Qty: 90 3RF valacyclovir 1 gram tablet 1,000 mg PO QDAY Qty: 90 0RF testosterone cypionate [Depo-Testosterone] 200 mg/mL oil 200 mg IM Q2W Qty: 6 1RF ropinirole 2 mg tablet 2 mg PO BID Qty: 180 2RF metoprolol succinate 100 mg capsule,sprinkle,ER 24hr 100 mg PO QDAY Qty: 90 3RF quetiapine [Seroquel] 400 mg tablet 800 mg PO QHS Qty: 60 1RF Follow Up/Referrals: Ángel Massey MD [Staff Physician] -
[2023-11-09 03:38] LABS: Basophils Percent Auto 0.2 % (0.0-3.0); Eosinophils Percent Auto 2.1 % (0.0-7.0); Hematocrit 52.8 % (37.0-53.0); Hemoglobin* 16.6 gm/dL (13.5-17.5); Immature Granulocytes Pct Auto 0.5 %; Lymphocytes Percent Auto 6.9 % (20-44); Mean Corpuscular HGB Conc 31 gm/dL (32-36); Mean Corpuscular Hemoglobin 29 pg (26-34); Mean Corpuscular Volume 93 fL (80-100); Monocytes Percent Auto 4.7 % (0.0-11.0); Neutrophils Percent Auto 85.6 % (42.0-72.0); Platelet Count* 154 K/uL (140-440); RDW Coefficient of Variation % 14.9 % (11.5-15.5); Red Blood Count 5.71 m/uL (4.30-5.90); White Blood Count* 13.11 K/uL (4.50-11.00)
[2023-11-09 03:43] LABS: Slide Review Reflex No
[2023-11-09 03:45] LABS: HCO3 VBG 34 mmol/L (21-28); Lactate* 0.8 mmol/L (0.5-1.9); PO2 VBG < 30.1 mmHG (25-47); pH VBG 7.308 (7.32-7.43)
[2023-11-09 03:47] LABS: PCO2 VBG 69 mmHG (40-50)
[2023-11-09 03:56] LABS: Chloride* 99 mmol/L (96-114); Potassium* 3.6 mmol/L (3.6-5.1); Sodium* 137 mmol/L (135-149)
[2023-11-09] MEDS: IPRAT-ALBUT 0.5-2.5 MG/3 ML NEB 1 NEB IH (03:56)
[2023-11-09 03:57] LABS: D Dimer Quantitative* 0.43 ug/ml (0.00-0.50)
[2023-11-09 03:58] LABS: Creatinine* 2.5 mg/dL (0.5-1.5); Est. Creatinine Clearance* 36.84; Estimated Glomerular Filt Rate 29 ml/min
[2023-11-09 03:58] LABS: Magnesium* 2.2 mg/dL (1.5-2.6)
[2023-11-09 03:59] LABS: Anion Gap 4 mEq/L (7-15); Blood Urea Nitrogen* 26 mg/dL (7-30); Carbon Dioxide* 34 mmol/L (20-32); Glucose* 124 mg/dL (60-115)
[2023-11-09 04:00] LABS: Ethanol* < 0.01 % (0.01-0.03)
[2023-11-09 04:01] LABS: PCR FLU A Negative PCR FLU A (Negative); PCR FLU B Negative PCR FLU B (Negative); PCR RSV Negative PCR RSV (Negative); SARS PCR* Negative SARS-CoV-2 (Negative)
[2023-11-09 04:01] LABS: C Reactive Protein* 0.9 mg/dL (0.5-1.0)
[2023-11-09 04:08] LABS: NT Pro B Type NatriureticPept* 23 pg/mL
[2023-11-09 04:10] LABS: Troponin I* < 0.01 ng/mL (0.01-0.04)
--- OUTSIDE RECORDS SUMMARY | 2023-11-09 04:29 | XMS_ITS | Clinical Summary ---
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 0 Active vardenafiL (LEVITRA) 20 mg tablet TAKE 1 TABLET BY MOUTH ONE HOUR PRIOR TO INTERCOURSE 1 Active aspirin chewable 81 mg chewable tablet Chew 81 mg by mouth once daily with a meal. 4 Active diclofenac (VOLTAREN) 75 mg delayed-release tabletIndications :Chronic left shoulder pain,Chronic low back pain, unspecified back pain laterality, unspecified whether sciatica present Take 1 Tablet (75 mg) by mouth two times daily with meals. For severe pain. Do not take other NSAIDs with this ( no ibuprofen and no naproxen). 180 Tablet 1 4 Active amitriptyline (ELAVIL) 100 mg tabletIndications :Insomnia, idiopathic Take 1 Tablet (100 mg) by mouth at bedtime. 90 Tablet 1 4 Active amLODIPine (NORVASC) 5 mg tabletIndications :Essential hypertension Take 1 Tablet (5 mg) by mouth once daily. For blood pressure. 90 Tablet 1 4 Active atorvastatin (LIPITOR) 20 mg tabletIndications :Hypercholesterol emia Take 1 Tablet (20 mg) by mouth once daily. For Cholesterol. 90 Tablet 1 4 Active OLANzapine (ZyPREXA) 10 mg tabletIndications :Insomnia, idiopathic Take 2 Tablets (20 mg) by mouth at bedtime. 180 Tablet 1 4 Active gabapentin (NEURONTIN) 400 mg capsuleIndication s:Chronic left shoulder pain Take 3 Capsules (1,200 mg) by mouth three times daily. 540 Capsule 1 4 Active metoprolol succinate (TOPROL XL) 100 mg Sustained-Release tabletIndications :Essential hypertension Take 1 Tablet (100 mg) by mouth once daily. 90 Tablet 1 4 Active prazosin (MINIPRESS) 2 mg capsuleIndication s:Drug-induced mood disorder (HC) Take 1 Capsule (2 mg) by mouth at bedtime. 90 Capsule 1 4 Active QUEtiapine (SEROQUEL) 400 mg tabletIndications :Drug-induced mood disorder (HC),Insomnia, idiopathic Take 2 Tablets (800 mg) by mouth at bedtime. 180 Tablet 1 4 Active rOPINIRole (REQUIP) 2 mg tabletIndications :Tremor Take 1 Tablet (2 mg) by mouth two times daily. 90 Tablet 1 4 Active tamsulosin (FLOMAX) 0.4 mg capsuleIndication s:Lower urinary tract symptoms Take 1 Capsule (0.4 mg) by mouth once daily after a meal. For urinary symptoms. 90 Capsule 1 4 Active methocarbamoL (ROBAXIN) 750 mg tabletIndications :Chronic low back pain, unspecified back pain laterality, unspecified whether sciatica present Take 1 Tablet (750 mg) by mouth every 8 hours if needed for Muscle Spasm. May make you drowsy. Use mostly just at night. 60 Tablet 2 4 Active desonide (TRIDESILON) 0.05 % cream Apply topically to affected area(s) two times daily. 3 Active ALPRAZolam (XANAX) 1 mg tablet Take 1 mg by mouth at bedtime if needed (sleep). 4 Active propranoloL (INDERAL) 20 mg tabletIndications :Tremor Take 1 Tablet (20 mg) by mouth two times daily. 60 Tablet 5 4 Active traZODone (DESYREL) 100 mg tabletIndications :Schizophrenia, unspecified type (HC) TAKE TWO TABLET BY MOUTH DAILY AT BEDTIME 180 Tablet 1 4 Active nystatin (MYCOSTATIN) 100,000 unit/mL suspensionIndicat ions:Oral thrush Swish and swallow 5 mL (500,000 units) by mouth four times daily. 473 mL 4 Active omeprazole (PRILOSEC) 20 mg Delayed-Release capsuleIndication s:Gastroesophagea l reflux disease without esophagitis TAKE ONE CAPSULE BY MOUTH ONE TIME DAILY before a meal. 90 Capsule 2 4 Active omeprazole (PRILOSEC) 20 mg Delayed-Release capsuleIndication s:Gastroesophagea l reflux disease without esophagitis Take 1 Capsule (20 mg) by mouth once daily before a meal. 30 Capsule 4 11/08/19 24 Discontinued predniSONE (DELTASONE) 20 mg tabletIndications :Ground glass opacity present on imaging of lung Take 2 Tablets (40 mg) by mouth once daily for 5 days. 10 Tablet 4 10/30/19 24 levoFLOXacin (LEVAQUIN) 750 mg tabletIndications :Ground glass opacity present on imaging of lung Take 1 Tablet (750 mg) by mouth once daily for 5 days. 5 Tablet 4 10/30/19 24 Active Problems Problem Noted Date Diagnosed Date [...] Encounters Date Type Department Care Team Description 11/05/2023 Refill [facility] [address] [place] [address] Brian Martínez MD Refill Request (Omeprazole) 10/25/2023 Telephone [facility] [address] [place] [address] Dino Nathan MD Imaging 10/25/2023 Telephone [facility] [address] [place] [address] Dino Nathan MD Results (CT chest) 10/25/2023 Orders Only [place] [id number] [place] [address] Dino Nathan MD 1 scan: (1-Ord) 10/22/2023 10/22/2023 3:30 PM CDT Ancillary Procedure [facility] [address] [facility] [address] [place] [address] 10/22/2023 1:25 PM CDT Ancillary Procedure [facility] [address] [place] [address] 10/22/2023 1:20 PM CDT Office Visit [facility] [address] [place] [address] Dino Nathan MD Shortness Of Breath; Chest Pain 10/22/2023 Telephone [facility] [address] [place] [address] Dino Nathan MD Error-please disregard 10/22/2023 Travel 10/22/2023 Telephone [facility] [address] [place] [address] Dino Nathan MD Sob; Chest Pain/problem 10/21/2023 Nurse Triage [facility] [address] [place] [address] Brian Martínez MD Chest Pain 10/16/2023 Telephone [facility] [address] [place] [address] Brian Martínez MD Medication Management (testosterone) 10/15/2023 10:45 AM CDT Orders Only [facility] [address] [place] [address] Lab, [place] [facility] 10/15/2023 Travel 09/27/2023 6:00 AM CDT Office Visit [facility] at [facility] [address] [place] [address] Evelyn Grant MD Surgery Scheduled 09/27/2023 Orders Only [facility] Scanner 1 scan: (1-Ord) [facility], OPEN UMBILICAL HERNIA REPAIR WITH MESH, 09/27/2023 09/27/2023 Refill [facility] [address] [place] [address] Brian Martínez MD Refill Request (Trazodone) 09/23/2023 2:40 PM CDT Preop Visit [facility] [address] [place] [address] Brian Martínez MD Preoperative Exam (DOS: 09/27/2023 [facility]/Dr Evelyn Grant /Umbilical Hernia Repair) 09/23/2023 Travel 09/22/2023 Telephone [facility] [address] [place] [address] Brian Martínez MD Appointment (Pre op exam. Surgery is 09/27/23) 09/13/2023 12:30 PM CDT Office Visit [facility] [address] [place] [address] Evelyn Grant MD Consult (Umbilical hernia ) 09/13/2023 Travel 09/10/2023 Refill [facility] [address] [place] [address] Brian Martínez MD Refill Request (methocarbamoL (ROBAXIN) 750 mg tablet) 08/30/2023 1:50 PM CDT Office Visit [facility] [address] [place] [address] Brian Martínez MD Hospital F/U (Post Hospital DOD: 08/20/2023/[facility] - Referral for Psychology, Chronic Pain ) 08/30/2023 Travel 08/27/2023 Telephone [facility] [address] [place] [address] Brian Martínez MD Medication Management (medication fill [...] Sign Reading Time Taken Comments Blood Pressure 110/70 10/22/2023 1:17 PM CDT Pulse 78 10/22/2023 1:17 PM CDT Temperature 36.8 ??C (98.2 ??F) 10/01/2020 2:11 PM CD T Respiratory Rate 14 09/08/2019 4:42 AM CDT Oxygen Saturation 93% 10/22/2023 1:17 PM CDT Inhaled Oxygen Concentration - - Weight 98.4 kg (217 lb) 10/22/2023 1:17 PM CDT Height 188 cm (6' 2.02) 10/22/2023 1:17 PM CDT Body Mass Index 27.85 10/22/2023 1:17 PM CDT Plan of Treatment Upcoming Encounters Date Type Department Care Team (Late st Contact Info) Description 01/28/2024 3:30 PM MOLD CLEANER Telemedicine [facility] [address] [facility] [address] [place] [address] Junior Nelson MD [address] [facility] [address] [place] [address] Health Maintenance Due Date Last Done Comments Pneumococcal series for age 6-64 (1 of 2 - PCV) 12/09/1971 HIV for age 15-65 1980 Hepatitis C screening for ag e 18-79 12/09/1983 Colonoscopy through age 75 2010 Lipids for age 45-75 2010 06/04/2003, 06/04/19 04 Tetanus booster 09/15/2023 09/14/2013, 04/09, 05/01/2010, Additional history exists Influenza for age 50-64 11/07/2023 01/09/20, 01/08/2006, 01/08/2005, Additional history exists Depression screening for age 12+ 08/29/2024 08/30/19 BMI (ht and wt on same day) for age 18+ 10/21/2024 10/22/2023, 08/30/2023, 10/01/2020, Additional history exists Tdap Completed 09/14/2013, 04/09, 05/01/2010 Zoster (shingles) series for age 50+ Completed 01/20/2021, 11/15/2020, 05/09/2018, Additional history exists COVID-19 vaccine series Completed 12/03/19, 11/27/2021, 07/17/2021, Additional history exists Medical Devices Implanted Type Area Material Flow Engineer Device Identifier Shelf Expiration Date Model / Serial / Lot [id number] 1cc Gwynn Plus Paste Dbm Implanted:Qty: 1 on 09/07/2019 by Dane Wharton MD at [facility] Explanted:at [facility] (Quantity not on file) Spine [employer] Spine/Ortho 11/23/2020 [id number]# / [id number] / Spacer Cerv [id number] Vertestack Peek - [id number] Implanted:Qty: 1 on 09/07/2019 by Dane Wharton MD at [facility] Spine [employer] Spine/Ortho 04/06/2027 [id number] / / [id number] Spacer Cerv [id number] Vertestack Peek - [id number] Implanted:Qty: 1 on 09/07/2019 by Dane Wharton MD at [facility] Spine [employer] Spine/Ortho 10/28/2026 [id number]# / / [id number] Screw Cerv Ant 4x17mm Atlantistranslational Fa Slf Drill - [id number] Implanted:Qty: 2 on 09/07/2019 by Dane Wharton MD at [facility] Spine [employer] Spine/Ortho [id number] / / Screw Cerv Ant 4x17mm Atlantistranslational Va Slf Drill - [id number] Implanted:Qty: 4 on 09/07/2019 by Dane Wharton MD at [facility] Spine [employer]onic Spine/Ortho [id number] / / Plate Cerv 2lvl 45mm [place] Vision Elite Ant - [id number] Implanted:Qty: 1 on 09/07/2019 by Dane Wharotn MD at [facility] Spine [employer] Spine/Ortho [id number] / / Procedures Procedure Name Priority Date/Time Associated Diagnosis Comments CT CHEST W JENNIE 10/22/2023 3:29 PM CDT Chest pain in adult Dyspnea, unspecified type RED CELL MORPHOLOGY Routine 10/22/2023 2 :03 PM CDT Chest pain in adult Dyspnea, unspecified type PLATELET ESTIMATE Routine 10/22/2023 2:0 3 PM CDT Chest pain in adult Dyspnea, unspecified type MANUAL DIFFERENTIAL Routine 10/22/2023 2 :03 PM CDT Chest pain in adult Dyspnea, unspecified type CBC WITH AUTO DIFFERENTIAL Routine 10/22/2023 2:03 PM CDT Chest pain in adult Dyspnea, unspecified type C-REACTIVE PROTEIN Routine 10/22/2023 2: 03 PM CDT Chest pain in adult Dyspnea, unspecified type SEDIMENTATION RATE Routine 10/22/2023 2: 03 PM CDT Chest pain in adult Dyspnea, unspecified type COMP METABOLIC PANEL Routine 10/22/2023 2:03 PM CDT Chest pain in adult Dyspnea, unspecified type PRO-BNP Routine 10/22/2023 2:03 PM CDT Chest pain in adult Dyspnea, unspecified type CBC WITH AUTO DIFFERENTIAL Routine 10/22/2023 2:03 PM CDT Chest pain in adult Dyspnea, unspecified type D-DIMER,QUANTITATIVE Routine 10/22/2023 2:03 PM CDT Chest pain in adult Dyspnea, unspecified type XR CHEST 2 VIEWS PA AND LATERAL Routine 10/22/2023 1:33 PM CDT Chest pain in adult EKG 12 LEAD Routine 10/22/2023 12:00 AM CDT Chest pain in adult BASIC METABOLIC PANEL Routine 10/15/2023 10:56 AM CDT Hypercholesterolemi a TESTOSTERONE BIOAVAILABLE & FREE Routine 10/15/2023 10:56 AM CDT Hypotestosteronemia SCAN-OPERATIVE/PROCEDU RE REPORT 09/27/2023 12:00 AM CDT CHOLESTEROL,TOTAL Routine 06/04/2003 8:0 0 AM MOLD CLEANER from Last 3 Months or Most Recently Relevant to Health Maintenance Results * CT CHEST W (10/22/2023 3:29 PM CDT) Anatomical Region Laterality Modality CHEST, THORAX, HEART Computed To mography 10/23/2023 1:42 AM CDT Impressions 10/23/2023 1:42 AM CDT 1. Ground-glass nodular opacities scattered throughout the lungs, involving all lobes. Findings compatible with a multilobar infectious/inflammatory process. 2. No pulmonary embolism. 3. Dilated main pulmonary artery measuring 4 cm, compatible with pulmonary arterial hypertension. Please note that all CT scans at this facility use dose modulation, iterative reconstruction, and/or weight-based dosing when appropriate to reduce radiation dose to as low as reasonably achievable. Dictated by Sánchez Garcia MD @ 10/23/2023 1:42:23 AM (Electronically Signed) Narrative 10/23/2023 1:42 AM CDT For Patients: ??As a result of the Century Cures Act, medical imaging exams and procedure reports are released immediately into your electronic medical record. ??You may view this report before your referring provider. ??If you have questions, please contact your health care provider. INDICATION: Chest pain in adult. TECHNIQUE: CT chest was acquired with 100 cc Omnipaque 350 IV contrast. COMPARISON: None. FINDINGS: Lungs and pleura: Ground-glass nodular opacities scattered throughout the lungs involving all lobes. Mild dependent atelectasis in the right lower lobe. No pleural effusion or pneumothorax. ?? Heart and vasculature: Normal heart size. Dilated main pulmonary artery measuring 4 cm. Normal caliber thoracic aorta. No pulmonary embolism. Lymph nodes/mediastinum: No mediastinal, hilar, or axillary adenopathy. Calcified distal esophageal lymph node Chest wall: No masses. Upper abdomen: Indeterminate 1.4 cm hypodense lesion within left kidney Bones: Unremarkable for age. Procedure Note Sánchez Garcia MD - 10/23/2023 For Patients: As a result of the Cures Act, medical imagingexams and procedure reports are released immediately into your electronicmedical record. You may view this report before your referring provider.If you have questions, please contact your health care provider. INDICATION: Chest pain in adult. TECHNIQUE: CT chest was acquired with 100 cc Omnipaque 350 IV contrast. COMPARISON: None. FINDINGS: Lungs and pleura: Ground-glass nodular opacities scattered throughout thelungs involving all lobes. Mild dependent atelectasis in the right lowerlobe. No pleural effusion or pneumothorax. Heart and vasculature: Normal heart size. Dilated main pulmonary arterymeasuring 4 cm. Normal caliber thoracic aorta. No pulmonary embolism. Lymph nodes/mediastinum: No mediastinal, hilar, or axillary adenopathy.Calcified distal esophageal lymph node Chest wall: No masses. Upper abdomen: Indeterminate 1.4 cm hypodense lesion within left kidney Bones: Unremarkable for age. IMPRESSION: 1. Ground-glass nodular opacities scattered throughout the lungs,involving all lobes. Findings compatible with a multilobarinfectious/inflammatory process. 2. No pulmonary embolism. 3. Dilated main pulmonary artery measuring 4 cm, compatible with pulmonaryarterial hypertension. Please note that all CT scans at this facility use dose modulation,iterative reconstruction, and/or weight-based dosing when appropriate toreduce radiation dose to as low as reasonably achievable. Dictated by Sánchez Garcia MD @ 10/23/2023 1:42:23 AM (Electronically Signed) Dino Nathan MD CT * (ABNORMAL) SEDIMENTATION RATE (10/22/2023 2:03 PM CDT) SEDIMENTATION RATE 23(H) <20 mm/hr 2023 10:25 PM CDT [facility] Blood BLOOD SPECIMEN / Unknown Butterfly / Unknown 10/22/2023 2:03 PM CDT 10/22/2023 2:03 PM CDT Dino Nathan MD HEMATOLOGY [facility] [address] [place] [address], * (ABNORMAL) CBC WITH AUTO DIFFERENTIAL (10/22/2023 2:03 PM CDT) WHITE BLOOD COUNT 13.9(H) 4.5 - 11.0 thou/cu mm 10/22/2023 3:44 PM CDT [facility] RED BLOOD COUNT 5.47 4.30 - 5.90 mil/cu mm 10/22/2023 3:44 PM CDT [facility] HEMOGLOBIN 16.6 13.5 - 17.5 g/dL 10/22/2023 3:44 PM CDT [facility] HEMATOCRIT 49.7 37.0 - 53.0 % 10/22/2023 3:44 PM CDT [facility] MCV 91 80 - 100 fL 10/22/2023 3:44 PM CDT [facility] MCH 30.3 26.0 - 34.0 pg 10/22/2023 3:44 PM CDT [facility] MCHC 33.4 32.0 - 36.0 g/dL 10/22/2023 3:44 PM CDT [facility] RDW 15.2 11.5 - 15.5 % 10/22/2023 3:44 PM CDT [facility] PLATELET COUNT 155 140 - 440 thou/cu mm 10/22/2023 3:44 PM CDT [facility] MPV 10.7 6.5 - 11.0 fL 10/22/2023 3:44 PM CDT [facility] Blood BLOOD SPECIMEN / Unknown Butterfly / Unknown 10/22/2023 2:03 PM CDT 10/22/2023 2:03 PM CDT Dino Nathan MD HEMATOLOGY Performing Organization Address [facility] Co de Phone Number [facility] [address] [place] [address], [place] [phone] * RED CELL MORPHOLOGY (10/22/2023 2:03 PM CDT) Pathologist [facility] RBC COMMENT RBC morphology appears normal RBC morphology appears normal, RBC morphology within normal limits for newborns. 10/22/2023 3:44 PM CDT [facility] Blood BLOOD SPECIMEN / Unknown Butterfly / Unknown 10/22/2023 2:03 PM CDT 10/22/2023 2:03 PM CDT Dino Nathan MD HEMATOLOGY Performing Organization Address [facility] Co de Phone Number [facility] [address] [place] [address], [place] [phone] * PLATELET ESTIMATE (10/22/2023 2:03 PM CDT) Pathologist [facility] PLATELET ESTIMATE Adequate Adequate, No estimate 10/22/2023 3:44 PM CDT [facility] Blood BLOOD SPECIMEN / Unknown Butterfly / Unknown 10/22/2023 2:03 PM CDT 10/22/2023 2:03 PM CDT Dino Nathan MD HEMATOLOGY Performing Organization Address [facility] Co de Phone Number [facility] [address] [place] [address], [place] [phone] * (ABNORMAL) MANUAL DIFFERENTIAL (10/22/2023 2:03 PM CDT) Pathologist [facility] % NEUTROPHILS 85.0 % 10/22/2023 3:44 PM CDT [facility] % LYMPHOCYTES 12.0 % 10/22/2023 3:44 PM CDT [facility] % MONOCYTES 3.0 % 10/22/2023 3:44 PM CDT [facility] % EOSINOPHILS 0.0 % 10/22/2023 3:44 PM CDT [facility] % BASOPHILS 0.0 % 10/22/2023 3:44 PM CDT [facility] NEUTROPHILS ABSOLUTE 11.8(H) 1.7 - 7.0 thou/cu mm 10/22/2023 3:44 PM CDT [facility] LYMPHOCYTES ABSOLUTE 1.7 0.9 - 2.9 thou/cu mm 10/22/2023 3:44 PM CDT [facility] MONOCYTES ABSOLUTE 0.4 <0.9 thou/cu mm 10/22/2023 3:44 PM CDT [facility] EOSINOPHILS ABSOLUTE 0.0 <0.5 thou/cu mm 10/22/2023 3:44 PM CDT [facility] BASOPHILS ABSOLUTE 0.0 <0.3 thou/cu mm 10/22/2023 3:44 PM CDT [facility] Blood BLOOD SPECIMEN / Unknown Butterfly / Unknown 10/22/2023 2:03 PM CDT 10/22/2023 2:03 PM CDT Dino Nathan MD HEMATOLOGY [facility] [address] [place] [address], * (ABNORMAL) C-REACTIVE PROTEIN (10/22/2023 2:03 PM CDT) [facility] C-REACTIVE PROTEIN 4.2(H) <0.5 mg/dL 10/23/2023 2:19 AM CDT [facility] Blood BLOOD SPECIMEN / Unknown Butterfly / Unknown 10/22/2023 2:03 PM CDT 10/22/2023 2:03 PM CDT Dino Nathan MD [facility] [address] [place] [address], * D-DIMER,QUANTITATIVE (10/22/2023 2:03 PM CDT) D-DIMER,QUANTI TATIVE 0.39 See comment FEU mcg/mL 10/23/2023 6:59 AM CDT [facility] Blood BLOOD SPECIMEN / Unknown Butterfly / Unknown 10/22/2023 2:03 PM CDT 10/22/2023 2:03 PM CDT [facility] - 10/23/2023 6:59 AM CDT The cut off value for exclusion of Deep Vein Thrombosis and / or Pulmonary Embolism is 0.50 FEU mcg/mL For patients greater than 50 years of age the upper limit is age dependent and was calculated with the formula: ?? (PATIENT AGE x 0.01) FEU mcg/mL = Upper limit of normal range Dino Nathan MD HEMATOLOGY Performing Organization Address City/State/[facility] Co de Phone Number [facility] [address] [place] [address], * PRO-BNP (10/22/2023 2:03 PM CDT) Pathologist [facility] PRO-BNP 111 <125 pg/mL 10/23/2023 2:19 AM CDT [facility] Blood BLOOD SPECIMEN / Unknown Butterfly / Unknown 10/22/2023 2:03 PM CDT 10/22/2023 2:[address] [facility] LAB[facility]AT[facility] - 10/23/2023 2:19 AM CDT The following cut-points have been suggested for the use of proBNP for the diagnostic evaluation of heart failure (HF) in patient with acute dyspnea. Patients with eGFR >= 60 Diagnosis (rule in CHF) ? <50 Years Old ?450 pg/mL 50 - 75 Years Old ?900 pg/mL >75 Years Old ? 1800 pg/mL Exclusion (rule out CHF) Age Independent ?300 pg/mL A cutoff of 1200 pg/mL for patients with an eGFR <60 yields a diagnostic sensitivity of 89% and specificity of 72% for acute congestive heart failure. ? Dino Nathan MD [facility] [address] [place] [address], * (ABNORMAL) COMP METABOLIC PANEL (10/22/2023 2:03 PM CDT) SODIUM 142 136 - 145 mmol/L 10/23/2023 2:20 AM T [facility] POTASSIUM 4.0 3.5 - 5.1 mmol/L 10/23/2023 2:20 AM T [facility] CHLORIDE 103 98 - 107 mmol/L 10/23/2023 2:20 AM [facility] CO2,TOTAL 24 22 - 29 mmol/L 10/23/2023 2:20 AM [facility] ANION GAP 15 5 - 18 10/23/2023 2:20 AM T [facility] GLUCOSE 70 70 - 99 mg/dL 10/23/2023 2:20 AM [facility] CALCIUM 9.4 8.6 - 10.0 mg/dL 10/23/2023 2:20 AM T [facility] BUN 12 6 - 20 mg/dL 10/23/2023 2:20 AM [facility] CREATININE 1.12 0.70 - 1.20 mg/dL 10/23/2023 2:20 AM CDT [facility] BUN/CREAT RATIO 11 10 - 20 2:20 AM CDT [facility] eGFR 77(L) >90 mL/min/1.7 3m2 10/23/2023 2:20 AM CDT [facility] Comment:As of 2021, eG FR is calculated by the CKD-EPI creatinine equation without race adjustment. ??eGFR can be influenced by muscle mass, exercise, and diet. ??The reported eGFR is an estimation only and is only applicable if the renal function is stable. ALBUMIN 3.4(L) 4.0 - 4.9 g/dL 10/23/2023 2:20 AM CDT [facility] PROTEIN,TOTAL 6.8 6.0 - 8.0 g/dL 10/23/2023 2:20 AM CDT [facility] BILIRUBIN,TOTAL 0.2 0.0 - 1.2 mg/dL 10/23/2023 2:20 AM CDT [facility] ALK PHOSPHATASE 79 40 - 129 IU/L 10/23/2023 2:20 AM CDT [facility] TRA LABORATORY ALT (SGPT) 35 10 - 50 IU/L 10/23/2023 2:20 AM CDT [facility] TRAL LABORATORY AST (SGOT) 33 10 - 50 IU/L 10/23/2023 2:20 AM CDT [facility] LABOR[facility] Blood BLOOD SPECIMEN / Unknown Butterfly / Unknown 10/22/2023 2:03 PM CDT 10/22/2023 2:03 PM CDT Dino Nathan MD CHEMISTRY [facility] [address] [place] [address], [place] * XR CHEST 2 VIEWS PA AND LATERAL (10/22/2023 1:33 PM CDT) Anatomical Region Laterality Modality CHEST, THORAX, Lung, HEART Compu junior Radiography 10/25/2023 6:35 AM CDT Impressions 10/25/2023 6:35 AM CDT No consolidative infiltrate or evidence of CHF. Dictated by Ángel Zelaya MD @ 10/25/2023 6:35:07 AM (Electronically Signed) Narrative 10/25/2023 6:35 AM CDT For Patients: ??As a result of the Cures Act, medical imaging exams and procedure reports are released immediately into your electronic medical record. ??You may view this report before your referring provider. ??If you have questions, please contact your health care provider. INDICATION: Chest pain TECHNIQUE: Chest 2 views COMPARISON: None FINDINGS: Cardiovascular and mediastinum: ??Heart size and vasculature are normal in caliber and appearance. ?? Lungs and pleural spaces: ??Lungs are clear. ??No sign of infiltrate or mass. ??No sign of pleural effusion. ??No pneumothorax. ?? Bones and soft tissues: Chronic changes at the right distal clavicle. Procedure Note Ángel Zelaya MD - 10/25/2023 For Patients: As a result of the Cures Act, medical imagingexams and procedure reports are released immediately into your electronicmedical record. You may view this report before your referring provider.If you have questions, please contact your health care provider. INDICATION: Chest pain TECHNIQUE: Chest 2 views COMPARISON: None FINDINGS: Cardiovascular and mediastinum: Heart size and vasculature are normal incaliber and appearance. Lungs and pleural spaces: Lungs are clear. No sign of infiltrate ormass. No sign of pleural effusion. No pneumothorax. Bones and soft tissues: Chronic changes at the right distal clavicle. IMPRESSION: No consolidative infiltrate or evidence of CHF. Dictated by Ángel Zelaya MD @ 10/25/2023 6:35:07 AM (Electronically Signed) Dino Nathan MD GENERAL IMAGING * EKG 12 LEAD (10/22/2023 12:00 AM CDT) Dino Nathan MD EKG ORD * (ABNORMAL) TESTOSTERONE BIOAVAILABLE & FREE (10/15/2023 10:56 AM CDT) TESTOSTERONE, TOTAL 16(L) ng/dL 10/23 9:06 PM CDT [facility] ([facility]) Comment: This test was developed and its performance characteristics determined by [employer]. It has not been cleared or approved by the Food and Drug Administration. Reference Range: Adult Males >18 years ?403 - 320 This [facility] LC/MS-MS method is currently certified by the [facility][NOTE 3] Hormone Standardization Program (HoST). ??Adult male reference interval is based on a population of healthy nonobese males (BMI <30) between 19 and 39 years old. Britt et.al. JCEM 2017,102;9572-2883 PMID: [id number]. PERCENT FREE TESTOSTERONE (DIALYSIS) 1.8 % 10/24/2023 9:06 PM CDT [facility] ([facility]) Comment: This test was developed and its performance characteristics determined by [employer]. It has not been cleared or approved by the Food and Drug Administration. Reference Range: Adult Males: 1.5 - 3.2 FREE TESTOSTERONE SERUM 2.9(L) pg/mL 10/24/2023 9:06 PM T [facility] ([facility]) Comment: Reference Range: Adult Males: 52 - 280 BIOAVAILABLE TESTOSTERONE PERCENT 32.8 % 10/24/2023 9:06 PM CDT [facility] ([facility]) BIOAVAILABLE TESTOSTERONE S 5.2(L) ng/dL 10/24/2023 9:06 PM T [facility] ([facility]) Comment: Reference Range: Males (50 - 69y): 95 - 285 Blood BLOOD SPECIMEN / Unknown Venipuncture / Unknown 10/15/2023 10:56 AM CDT 10/15/2023 10:57 AM CDT Narrative [facility] ([facility]) - 10/24/2023 9:06 PM CDT Performed at: ??01 - [employer] [address] [place] [address] ??[id number] Mig Welder: Roscoe Escobar MD, Phone: ??[phone] Brian Martínez MD SEND OUTS [facility] ([facility]) [address] [place] [address], * (ABNORMAL) BASIC METABOLIC PANEL (10/15/2023 10:56 AM CDT) SODIUM 141 136 - 145 mmol/L 10/16/2023 5:46 AM CDT [facility] TRAL LABORATORY POTASSIUM 3.9 3.5 - 5.1 mmol/L 10/16/2023 5:46 AM CDT [facility] TRAL LABORATORY CHLORIDE 103 98 - 107 mmol/L 10/16/2023 5:46 AM CDT [facility] TRAL LABORATORY CO2,TOTAL 24 22 - 29 mmol/L 10/16/2023 5:46 AM CDT [facility] TRAL LABOR[facility]ORY ANION GAP 14 5 - 18 10/16/2023 5:46 AM CDT [facility] TRAL LABORATORY GLUCOSE 103(H) 70 - 99 mg/dL 10/16/2023 5:46 AM CDT [facility] TRAL LABORATORY CALCIUM 9.2 8.6 - 10.0 mg/dL 10/16/2023 5:46 AM CDT [facility] TRAL LABORATORY BUN 12 6 - 20 mg/dL 10/16/2023 5:46 AM T [facility] TRAL [facility] CREATININE 1.07 0.70 - 1.20 mg/dL 10/16/2023 5:46 AM T [facility] TRAL LABORAT[facility] BUN/CREAT RATIO 11 10 - 20 5:46 AM T [facility] TRAL LAB[facility] eGFR 81(L) >90 mL/min/1.7 3m2 10/16/2023 5:46 AM T [facility] TR[facility] Comment:As of 2021, eG FR is calculated by the CKD-EPI creatinine equation without race adjustment. ??eGFR can be influenced by muscle mass, exercise, and diet. ??The reported eGFR is an estimation only and is only applicable if the renal function is stable. Blood BLOOD SPECIMEN / Unknown Venipuncture / Unknown 10/15/2023 10:56 AM CDT 10/15/2023 10:57 AM CDT Brian Martínez MD CHEMISTRY [facility] [address] [place] [address], * SCAN-OPERATIVE/PROCEDURE REPORT (09/27/2023 12:00 AM CDT) Scanner OTHER * CHOLESTEROL,TOTAL (06/04/2003 8:00 AM MOLD CLEANER) CHOLESTEROL,TOT AL 160 110 - 199 mg/dL 06/04/2003 8:00 AM MOLD CLEANER Narrative 08/19/2003 12:05 AM CDT Ordered by [...] 1:25 PM 10/07/2015 2:42 PM Care Teams Drilling Machine Operator Relationship Specialty Start Date End Date Brian Martínez MD [address] [place] [address] PCP - General Family Practice 10/14/23
--- OUTSIDE RECORDS SUMMARY | 2023-11-09 04:29 | XMS_ITS | Clinical Summary ---
Author Organization [facility] Address [address], [place] [address] Care Team Providers Care Quantity Surveyor Name Role Phone Briana Vazquez PA-C Primary Care Provider [phone] Source Comments You are receiving this document [...] for each transition of care or referral. [facility] Allergies Active Allergy Reactions Criticality Noted Date Comments Naltrexone Other, see comments 02/26/2023 Pt told RN he did not like it so he stopped taking it. Valproic Acid Other, see comments High 02/26/2023 Excessive sedation Medications Medication Sig Dispensed Refills Start Date End Date Status acetaminophen (TYLENOL) 500 MG tabletIndication s:Pain Take 2 Tablets (1,000 mg) by mouth three times a day. Maximum acetaminophen dose is 4000 mg in 24 hours Indications: Pain 90 Tablet 08/19/2023 Active atorvastatin (LIPITOR) 10 MG tabletIndication s:Hyperlipidemia Take 2 Tablets (20 mg) by mouth every evening. Indications: High Amount of Fats in the Blood 28 Tablet 08/19/2023 5 Active gabapentin (NEURONTIN) 400 MG capsuleIndicatio ns:RLS / chronic pain Take 3 Capsules (1,200 mg) by mouth three times a day. Indications: RLS / chronic pain 136 Capsule 08/19/2023 5 Active amLODIPine (NORVASC) 5 MG tabletIndication s:Hypertension Take 1 Tablet (5 mg) by mouth daily. Indications: High Blood Pressure Disorder 14 Tablet 08/19/2023 Active aspirin 81 MG chewable tablet Chew and swallow 1 Tablet (81 mg) by mouth daily. 14 Tablet 08/19/2023 Active folic acid 1 MG tablet Take 1 Tablet (1 mg) by mouth daily. 14 Tablet 08/19/2023 Active lidocaine (ASPERCREAM) 4 % patchIndications :pain Apply 3 Patches to skin daily. Leave on for up to 12 hours in a 24 hour period, then remove. Indications: pain 42 Patch 08/20/2023 Active metoprolol succinate (TOPROL XL) 50 MG 24 hour release tabletIndication s:Hypertension Take 1 Tablet (50 mg) by mouth daily. Indications: High Blood Pressure Disorder 14 Tablet 08/20/2023 Active omeprazole (PRILOSEC) 20 MG capsuleIndicatio ns:Gastroesophag eal Reflux Disease Take 1 Capsule (20 mg) by mouth daily. Indications: Gastroesophageal Reflux Disease 14 Capsule 08/19/2023 Active QUEtiapine (SEROQUEL) 400 MG tabletIndication s:SCAD Take 2 Tablets (800 mg) by mouth daily at bedtime. Indications: SCAD 28 Tablet 08/19/2023 Active amitriptyline (ELAVIL) 100 MG tabletIndication s:Depression Take 1 Tablet (100 mg) by mouth daily at bedtime. Indications: Depression 14 Tablet 08/19/2023 Active mometasone (ELOCON) 0.1 % creamIndications :Dermatitis Apply topically one time daily. Indications: Skin Inflammation. 45 g 08/19/2023 Active diclofenac (VOLTAREN) 1 % gel Apply 2 g topicallly to affected area on skin 4 times daily as needed for shoulder/neck pain. 50 g 08/19/2023 Active diphenhydrAMINE (BENADRYL) 50 MG capsuleIndicatio ns:Insomnia Take 1 Capsule (50 mg) by mouth daily at bedtime. Indications: Trouble Sleeping 14 Capsule 08/19/2023 Active OLANZapine (ZYPREXA) 10 MG tabletIndication s:psychosis Take 1 Tablet (10 mg) by mouth two times daily as needed for agitation, psychosis. Indications: psychosis 28 Tablet 08/19/2023 Active tamsulosin (FLOMAX) 0.4 MG CAPS capsule Take 1 Capsule (0.4 mg) by mouth daily after a meal. 14 Capsule 08/20/2023 Active thiamine 100 MG tablet Take 1 Tablet (100 mg) by mouth daily. 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 Alcohol use disorder 09/11/2015 Migraine headache 11/19/2009 Hypertension 02/27/2009 Hyperlipidemia with target LDL less than 130 Overview (11/14/2014): ICD 10 Genital herpes 02/27/2009 Generalized headaches 02/27/2009 Chronic low back pain 02/27/2009 GERD (gastroesophageal reflux disease) 9 Encounters Date Type Department Care Team Description 07/20/2023 3:13 PM CDT - 08/23/2023 1:36 PM CDT Hospital Encounter NE[address] [place] [address] Kristin Rutledge PA-C Gray, Paul W, PA-C Boyou, Sadia K, MIGUEL, Remi Ramsey MD Methamphetamine use disorder, severe, dependence (HRC) (Primary Dx); Alcohol use disorder, severe, dependence (HRC); Sedative, hypnotic or anxiolytic use disorder, severe, dependence (HRC); Pain Discharge Disposition: Home from Last 3 Months Immunizations Name Administration [...] = 0.6 oz pur e alcohol) Rare [facility] Utilities Answer Date Recorded In the past 12 months has Mixers, oil, or water [employer] threatened to shut off services in your [...] place to sleep or slept in a correction (including now)? Patient declined 07/26/2023 Sex and [...] 1965 Pneumococcal (1 - PCV) 12/09/1971 DTaP/Tdap/Td (1 - Tdap) 05/03/2012 05/03/2012, 05/20 Diabetes Screening- (based on age and BMI) 06/21/2021 06/21/2018, 05/03/2017 COVID-19 Vaccine ( season) 2022 11/27/2021, 07/17/2021, [...] METABOLIC PANEL Routine 08/09/2023 8:36 AM CDT LIPID PANEL & DIRECT LDL (IF NEEDED) Add-On 05/07/2023 12:06 PM DRILLING INSPECTOR HGB A1C Routine 06/21/2018 12:06 PM CDT [...] 8:13 AM CDT) Only the most recent of2 resultswithin the time period is included. Sodium 138 136 - 145 mmol/L 08/12/2023 9:[address] [facility] Potassium 4.3 3.5 - 5.1 mmol/L 08/12/2023 9:[address] [facility] Comment:Specimen slightly he molyzed. Hemolysis may affect result. Chloride 103 98 - 109 mmol/L 08/12/2023 9:[address] [facility] CO2 24 20 - 29 mmol/L 08/12/2023 9:[address] [facility] Anion Gap 11 6 - 16 mmol/L 08/12/2023 9:[address] [facility] Calcium 10.1 8.4 - 10.4 mg/dL 08/12/2023 9:[address] [facility] BUN 19 7 - 26 mg/dL 08/12/2023 9:[address] [facility] Creatinine 1.19(H) 0.73 - 1.18 mg/dL 08/12/2023 9:[address] [facility] Glucose 105(H) 70 - 100 mg/dL 08/12/2023 9:[address] [facility] Comment:The given reference range is for the fasting state. Non-fasting reference range for glucose is 70 - 180 mg/dL. GFR, Estimated >60 >60 mL/min/1.7 3m2 08/12/2023 9:20 [facility] Blood Venipuncture / Unknown 08/12/2023 8:13 AM CDT 08/12/2023 8:49 AM CDT Kristin Rutledge PA-C LAB_1 Performing Organization Address [facility]/ZIP Co de Phone Number [address] * Extra Lavender top tube (08/12/2023 8:10 AM CDT) Only the most recent of2 resultswithin the time period is included. Extra Lavender Top Drawn Specimen will be held for 3 days 08/12/2023 10:00 AM CDT [facility] Blood Venipuncture / Unknown 08/12/2023 8:10 AM CDT 08/12/2023 8:50 AM CDT Cristo Lozano MD LAB_1 Performing Organization Address [facility] Co de Phone Number [address] * (ABNORMAL) Lipid Panel & Direct LDL (if Needed) (05/07/2023 12:06 PM DRILLING INSPECTOR) [facility] Cholesterol 91 0 - 199 mg/dL 05/07/2023 3:44 PM [facility] Triglyceride 77 <=149 mg/dL 05/07/2023 3:44 PM [facility] HDL Cholesterol 31(L) >=40 mg/dL 3:44 PM [facility] LDL, Calculated 45 <130 mg/dL 3:44 PM [facility] Non HDL Chol, Calculated 60 <=159 mg/dL 05/07/2023 3:44 PM [facility] Cholesterol/HDL Ratio 2.9 <=5.0 05/07/2023 3:44 PM [facility] Blood Venipuncture / Unknown 05/07/2023 12:06 PM DRILLING INSPECTOR 05/07/2023 12:13 PM DRILLING INSPECTOR Zaki Velásquez MD LAB_1 Performing Organization Address [facility] Co de Phone Number [address] * Hgb A1C (06/21/2018 12:06 PM CDT) [facility] Hemoglobin A1C 5.0 <=5.6 % 06/21/2018 3:25 PM CDT [facility] Blood Venipuncture / Unknown 06/21/2018 12:06 PM CDT 06/21/2018 12:06 PM CDT Coretta Hawkins APRN, CNP LAB_1 Performing Organization Address [facility] Co de Phone Number [address] [address], [facility] [phone] * HIV 1/2 Ag/Ab 4th Generation (05/27/2017 2:42 PM CDT) [facility] HIV 1/2 AG/AB 4thGEN Negative (Non Reactive) [facility] [place] Comment:HIV-1 p24 Ag and HIV -1/HIV-2 Ab not detected. 05/27/2017 2:42 PM CDT 05/27/2017 2:44 PM CDT Narrative [facility] - 05/27/2017 7:17 PM CDT Performed at [facility], [address] [place] [address] ??[phone] Briana Vazquez PA-C LAB_1 Performing Organization Address [facility] de Phone Number [facility] [phone] * Hepatitis C Antibody, with Reflex (05/27/2017 2:42 PM CDT) [facility] Anti-HCV Negative (Non Reactive) [facility] Comment: Antibodies to HCV not detected. Does not exclude the possibility of exposure to HCV. 05/27/2017 2:42 PM CDT 05/27/2017 2:44 PM CDT Narrative [facility] - 05/27/2017 6:44 PM CDT Performed at [facility], [address] [place] [address] ??[phone] Briana Vazquez PA-C LAB_1 [facility] [phone] from Last 3 Months or Most Recently [...] 5:39 PM 09/18/2015 2:12 PM Care Teams Quantity Surveyor Relationship Specialty Start Date End Date Briana Vazquez PA-C [address] [place] [address] PCP - General Physician Cotton Weigher Operator 11/29/19
--- OUTSIDE RECORDS SUMMARY | 2023-11-09 04:30 | XMS_ITS | Encounter Summary ---
Author Organization [facility] Address [address] [address] Care Team Providers Care Terminal Carman Name Role Phone Briana Vazquez PA-C Primary Care Provider [phone] Encounter Details Date Type Department Care Team [...] COVID19 05/07/2023 05/07/2023 05/07/2023 10:3 4 AM RECEIVER documented as of this encounter Care Teams Terminal Carman Relationship Specialty Start Date End Date Briana Vazquez PA-C [address] [place] [address] PCP - General Physician Light Armored Reconnaissance Officer 11/29/19 documented as of this encounter
--- OUTSIDE RECORDS SUMMARY | 2023-11-09 04:30 | XMS_ITS | Encounter Summary ---
Author Organization [employer] Address [address] [place] [address] Care Team Providers Care Therapeutic Activities Services Worker Name Role Phone Briana Vazquez PA-C Primary Care Provider [phone] Encounter Details Date Type Department Care Team (Late st Contact Info) Description 07/29/[address] [facility] [address] [place] [address] [place] [address] [place], [place] [id number] Social History Tobacco Use Types Packs/Day Years [...] COVID19 05/07/2023 05/07/2023 05/07/2023 10:3 4 AM GAME SHOW HOST documented as of this encounter Care Teams Therapeutic Activities Services Worker Relationship Specialty Start Date End Date Briana Vazquez PA-C [address] [place] [address] PCP - General Physician Attendant Arcade 11/29/19 documented as of this encounter
--- OUTSIDE RECORDS SUMMARY | 2023-11-09 04:30 | XMS_ITS | Encounter Summary ---
Author Organization [facility] Address [address], [place] [address] Care Team Providers Care Surgical Forceps Fabricator Name Role Phone Briana Vazquez PA-C Primary Care Provider [phone] Encounter Details Date Type Department Care Team [...] COVID19 05/07/2023 05/07/2023 05/07/2023 10:3 4 AM AUTO SERVICE WRITER documented as of this encounter Care Teams Surgical Forceps Fabricator Relationship Specialty Start Date End Date Briana Vazquez PA-C [address] [place] [address] PCP - General Physician Hardwood Finisher 11/29/19 documented as of this encounter
--- OUTSIDE RECORDS SUMMARY | 2023-11-09 04:30 | XMS_ITS | Encounter Summary ---
Author Organization [facility] Address [address] [address] Care Team Providers Care Aircraft Engineer Name Role Phone Briana Vazquez PA-C Primary Care Provider [phone] Encounter Details Date Type Department Care Team [...] COVID19 05/07/2023 05/07/2023 05/07/2023 10:3 4 AM STORE SALES CONSULTANT documented as of this encounter Care Teams Aircraft Engineer Relationship Specialty Start Date End Date Briana Vazquez PA-C [address] [place] [address] PCP - General Physician Community Nurse 11/29/19 documented as of this encounter
--- OUTSIDE RECORDS SUMMARY | 2023-11-09 04:30 | XMS_ITS | Encounter Summary ---
Author Organization [facility] Address [address], [place] [address] Care Team Providers Care It Portfolio Manager Name Role Phone Briana Vazquez PA-C Primary Care Provider [phone] Reason for Referral * Consult/Transfer Care (Routine) - Closed Specialty Diagnoses / Procedures Referred By Pinky osorio Referred To Contact Diagnoses Encounter for long-term (current) [place] [address] [place] [address] Referral ID Status Reason Start Date Expiration Date Visits Re quested Visits Authorized [id number] Closed 12/30/2016 01/30/2017 1 1 Scheduling Instructions Your provider has recommended you to follow up with your Primary Claims Service Adjustor. If you are currently seeing a [facility] provider for your primary care needs, a breeding technician will contact you within the next 3 business days to assist you in setting up this appointment. To schedule your appointment you may call [phone]. We suggest you call your health insurance [...] You can schedule your appointment online at [facility] or by calling the appointment center at the phone number listed above. Thank you for choosing [email or web address] Tanna Yen RN [facility] Refill [facility] Nurses Encounter Details Date Type Department Care Team (Late st Contact Info) Description 12/29/2016 Refill Order [facility] [address] [place] [address] [place] [address] [place] [address] Social History Tobacco Use Types Packs/Day Years [...] COVID19 05/07/2023 05/07/2023 05/07/2023 10:3 4 AM POWER BARKER documented as of this encounter Care Teams It Portfolio Manager Relationship Specialty Start Date End Date Briana Vazquez PA-C [address] [place] [address] PCP - General Physician Carbon Cleaner 11/29/19 documented as of this encounter
--- OUTSIDE RECORDS SUMMARY | 2023-11-09 04:30 | XMS_ITS | Encounter Summary ---
Author Organization [employer] Address [address], [place] [address] Care Team Providers Care Public Health Dentist Name Role Phone Briana Vazquez PA-C Primary Care Provider [phone] Reason for Referral * Consult/Transfer Care (Routine) Specialty Diagnoses / Procedures Referred By Pinky osorio Referred To Contact [address] [phone] Referral ID Status Reason Start Date Expiration [...] Follow up Comments WednesdayAugust 29 @ 11:00am [email or web address] [email or web address]: Star Blanton DNP, INSPECTOR WREATH, PMHNP-BC [address] [place] [address] ?? [phone] Clinic will email you your intake paperwork prior to appointment . Please call Clinic if you need to reschedule appointment. Bring your ID and insurance card to appointment * Consult/Transfer Care (Routine) Specialty Diagnoses / Procedures Referred By Pinky osorio Referred To Contact [address] [address] Referral ID Status Reason Start Date Expiration Date Visits Re quested Visits Authorized Scheduling Instructions Your clinician has recommended an appointment with [facility] Primary Care for your ongoing patient care. You can quickly make your appointment online at [email or web address]. You can also call [phone] for help scheduling your appointment. We suggest you call your health insurance company about your coverage and benefits for this appointment. Question Answer What type of follow up? IP Discharge Appointment Urgency? Non-Urgent Reason for visit? Hospital discharge follow-up/ Establish PCP Comments . [facility] APPOINTMENT Date: August Time: 1:15pm Provider: Dr. Antoine Dhillon [address] [address] This is a hospital discharge/ establishing primary [...] disorder, severe, dependence (HRC) Bossman Franco MD [address] [place] [id number] Referral ID Status Reason Start Date Expiration Date V isits Requested Visits Authorized [id number] New Request 08/09/2023 11/07/2024 1 1 Scheduling Instructions Your clinician has recommended an appointment with [facility] Addiction [facility]. You may call [phone] to schedule your appointment. We suggest you [...] disorder, severe, dependence (HRC) Bossman Franco MD [address] [place] [address] Referral ID Status Reason Start Date Expiration Date V isits Requested Visits Authorized [id number] New Request 08/06/2023 11/04/2024 1 1 Scheduling Instructions Your clinician has recommended an appointment with [facility] Addiction Medicine. You may call [phone] to schedule your appointment. We suggest you [...] Expiration Date Visits Re quested Visits Authorized [id number] 1 1 Encounter Details Date Type Department Care Team (Latest Contact Info) Description 07/20/2023 3:13 PM CDT - 08/23/2023 1:36 PM CDT Hospital Encounter RH NE4 [address] [place] [id number] Kristin Rutledge PA-C [address] [place] [address] Jaden Wetzel PA-C [address] [place] [address] Charlene Lee, INSPECTOR WREATH, LOADING DOCK HAND [address] [place] [address] Remi Hatch MD [address] [place] [address] Methamphetamine use disorder, severe, dependence (HRC) (Primary [...] = 0.6 oz pur e alcohol) Rare [facility] Utilities Answer Date Recorded In the past 12 months has e [employer], [employer], or water [employer] (formerly [employer]) threatened to shut off services in your [...] place to sleep or slept in a alf (including now)? Patient declined 07/26/2023 Sex and [...] in this encounter Discharge Summaries * Jaden Wetzle PA-C - 08/23/2023 11:45 AM CDT Images from the original note were not included. [facility] PSYCHIATRY DISCHARGE SUMMARY Admission Date and Time: 07/20/2023 4:24 PM Discharge Date: 08/23/2023 Attending Practitioner: Jaden Wetzel PA-C Discharge Diagnoses Schizoaffective Disorder, Bipolar Type Methamphetamine Use Disorder, Severe Alcohol Use Disorder, Severe Reason for Hospitalization History of Present Illness taken from admission note: Nicanor Alvarado is a 57 y.o. male who has been admitted for psychiatric stabilization in [facility] Medicine. The patient is being admitted [...] presented to the ED today from the [facility] ED for evaluation of altered mental status and possible ingestion. Pt isunable to provide any history due to his altered mental status HPI taken from ED notes and signout. Per ED note: Patient came from home, was picked up by [facility], multiple pill bottles surrounding the patient, more than 15, unsure of what the patient took, patient was altered and did not provide much history. Had a low-grade temperature of 99?? with a white count of 20, given a dose of Zosyn. Transferred here to [facility] for further evaluation. On my discussion [...] NE4 INTERVIEW: The pt was seen by typewriter assembly and parts inspector and MD on NE4. He said he was not really sure about the events KILN BURNER. He said he had 2 children and [...] referring to self medicating. He used methamphetamine KILN BURNER. He said he has +AH at his [...] denied having SI and he denied the KILN BURNER event as a SA. He spoke of [...] CM 98 CM 83 CM Magnesium Order: [id number] Status: Final result Visible to patient: Yes (not seen) Component Ref Range & Units 1 mo ago (07/20/23) 1 mo ago (07/18/23) 3 mo ago (05/07/23) Magnesium 1.6 - 2.6 mg/dL 2.1 2.2 2.0 Lipid Panel & Direct LDL (if Needed) Order: [id number] Status: Final result Visible to patient: Yes [...] The multidisciplinary treatment team met (RN, OT, manager social responsibility, Physician) on a daily basis to discuss patient care and treatment planning. The psychiatric inpatient setting provided close nursing supervision and access to multiple treatment modalities and programming (group therapy, OT, one-to-one therapy.) Patient support systems such as family, employment evaluator/case manager, and other care providers were contacted [...] symptoms. 07/19: Increase quetiapine to 100mg TID. KILN BURNER dose was 800mg qHS. UDS+ for amphetamines. 07/20: Will give Seroquel 200mg at bedtime this edil then combine doses / change dose to 400mg po qhs. Will titrate to KILN BURNER dose of 800mg po qhs as tolerated / indicated. Hold Lexapro for now. He has not been consistently taking it. Increase Neurontin to 600mg po TID. Offer Zyprexa 10mg po BID PRN. Continue CIWA protocol w PRN Valium and PRN Clonidine. 07/21: Lidocaine patch daily. Medicine consult if [facility] is issued. 07/22: Medicine consult for chronic back pain management. Increase Seroquel to 500mg po qhs. D/c PRNMelatonin and replace w PRN Benadryl. 07/23: Increase Seroquel to 600mg po qhs. Per his request, change Flexeril 10mg from TID PRN to TID.Will avoid Requip for RLS as it could worsen his UT sxs. Instead, will increase Neurontin to 900mg po TID. Spiritual care consult ordered. 07/24: Advance Seroquel to 700mg po qhs. Add Trazodone 50mg po qhs + 50mg po qhs PRN. Changed Benadryl to PRN itching only as this could worsen RLS, if that is truly what he has. Will discuss the possibility of akathisia (vs RLS) tomorrow. 07/25: Increase Seroquel to his KILN BURNER dose of 800mg po qhs. Add a [...] he is taking it each night / wine bottle inspector as a PRN for sleep. 08/13: No [...] of amitriptyline, along with resumption of many KILN BURNER medications. Pain addressed by pain Medicine consult, [...] his room over the weekend. Admitted to [facility]: 07/20: Restless on exam. Reported +AH and +paranoia (under investigation - which he is starting toquestion as the truth). Less disorganized as compared to when on Medicine. He said he was not really sure about the events KILN BURNER. He drinks alcohol heavily, nearly 3L of [employer] rum per week. He has been prescribed Lexapro, but he is not consistent w taking it. Sometimes I need more, referring to self medicating. He used methamphetamine KILN BURNER. He said he has +AH at his [...] denied having SI and he denied the KILN BURNER event asa SA. 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 When initially in the ED, he reported +SI (also while on Medicine) and, when questioned about ingestion, he replied w not enough. Per chart review from the 05/2023 Medicine admission (admitted for erratic driving / legal blood draw, while in the ED he had a syncopal episode and required Medicine admission then transfer to [facility]): He reports that he had about 2 hospitalizations in the past month. One in [facility] (04/24/2022) for acute toxic encephalopathy, drug overdose (cannabinoids, methamphetamine), and alcohol withdrawal w/ delirium tremens which required large amount of benzo. He says he had another hospitalization in [place]. He reports that one of these hospitalizations [...] as a problem, stating, I don't drive. [employer] Floor noted that he recently missed a court date for aDUI charge and, last hospitalization here, he was brought here for a legal blood draw after being stopped for erratic driving. When asked about the pill bottles that were scattered around him, when found KILN BURNER, he could not give an explanation. Will [...] No overt paranoia. Reported +AH last edil. [facility] is supporting petition for commitment. 07/23: He [...] before him. The pt talked about his yazidi bel iefs, about not believing in suicide, [...] Xanax as effective interventions, but understanding when typewriter assembly and parts inspector offered renal concerns with diclofenac and habit-forming [...] and would appreciate increase in amitriptyline which typewriter assembly and parts inspector agreed to. 08/02: Pt calm, cooperative and [...] and use andthe resulting consequences. Referral to [place]. Speech is hyper- verbal / over-inclusive and somewhat pressured. He is less restless. No overt paranoia. 08/10: Good participation in OT groups. Overnight sleep was better than usual. (Nearly 8h documented.) He is hopeful for YASMEEN tx at [facility]. Per his usual, seemingly in hopes of [...] son involved with AA along withgoing to [employer] [place] with him. Aware of potential upcoming discharge and feels confident in his readiness. Declined naltrexone. 08/19: Friendly, somewhat guarded in discussing meeting this AM with ACT team -- told typewriter assembly and parts inspector It would take an absolute moron to be participatory in this meeting without his manager life insurance present. Unfortunately, this culminated in cancellation of meeting to coordinate care, meaning pt will not be discharging today/must remain at least through the weekend. Plan to reconvene Wednesday AM. 08/20: Largely unchanged; pain and sleep are both managed well with current regimen. Meeting from yesterday rescheduled for Wednesday given pt manager life insurance was out of office/unable to attend. Pt [...] This plan was agreed with by medical massage therapist. 08/22: Met with patient on day of [...] psychiatric facility - he was transferred to [facility] psychiatry team on 07/20/23. Patient had an [...] time you are discharged Regular Diet Comments: Engagement Director needed? No [2] No Pending Labs Behavioral Health Comments: WednesdayAugust 29 @ 11:00am www.[facility]: Star Blanton, DNP, INSPECTOR WREATH, PMHNP- [address] [place] [address] ?? [phone] Clinic will email you your intake paperwork [...] Follow up Establish Primary Care Comments: . [facility] APPOINTMENT Date: August Time: 1:15pm Provider: Dr. Antoine SIMS [facility] [address] [place] [address] This is a hospital discharge/ establishing primary care appointment with Dr. Dhillon. Your provider will refer you to psychiatry and/or therapy if needed/requested at the time of your appointment. Please make sure to bring a copy of your photo ID and insurance card to your appointment. References: Referral [facility] Consult Page Question Answer Comment What type of follow up? IP Discharge Appointment Urgency? Non-Urgent Reason for visit? Hospital discharge follow-up/ Establish PCP Addiction Medicine Consult - Adult References: Referral [facility] Consult Page Question Answer Comment Appointment Urgency? [...] Addiction Medicine Consult - Adult References: Referral [facility] Consult Page Question Answer Comment Appointment Urgency? [...] CDT Please follow-up for pain management at: [facility] [address] [place], [address] * Discharge Instr - Other Orders* Betty Zuniga HUC - 08/06/2023 12:36 PM CDT Follow-up with Dr. Bossman Franco to help with recovery from alcohol and methamphetamine. My team should be reaching out to you to make an appointment. Addiction Medicine in the [facility] [address] [place] [address] option 3 Primary Care Appointment Date: August Time: 1:15pm Provider: Dr. Antoine Dhillon [address] [address] Resources 1. [facility] [address], [address], [place] [address] [facility] ([facility] [place] [facility]) improves the lives of children and adults withmental illnesses and their families by providing free classes on mental illnesses and support groups for adults with mental illnesses, parents and family members. For more information: Toll free: 3-367-LOVE-HELPS Website: www.namelps.org 2. Online go to: www.[place]Help.info 3. [facility] ([facility]) [address] [place] [address] Crisis Line Numbers 1. [facility] [phone] 2. [facility] ([facility]) [phone] 3. [facility] [phone] 4. National Suicide Prevention Lifeline 438 * Discharge Instr - Safety* Luciano Gresham [...] Wetzel PA-C - 08/22/2023 8:34 AM CDT [facility] Psychiatry Progress Note PATIENT NAME: Nicanor Alvarado DATE OF SERVICE: 08/22/2023 ATTENDING PRACTITIONER: Jaden Wetzel PA-C HOSPITAL DAY # 33 CHIEF COMPLAINT subsequent inpatient psychiatric encounter INTERVAL HISTORY Nicanor Alvarado was seen in f/u by typewriter assembly and parts inspector, where he walked to [place] for interview. Patient started interview by noting [...] Attention: intact Insight: poor Judgment: poor CONSULTATION [facility] MEDICINE, 07/24/23: Assessment / Recommendations Follow up [...] do not believe this is the best fci medication for this patient for pain control [...] male who has been admitted to station CT4 for AH, paranoia, substance withdrawal, and possible [...] was not really sure about the events KILN BURNER. He drinks alcohol heavily, nearly 3L of [employer] rum per week. He has been prescribed Lexapro, but he is not consistent w taking it. Sometimes I need more, referring to self medicating. He used methamphetamine KILN BURNER. He said he has +AH at his [...] denied having SI and he denied the KILN BURNER event asa SA. 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 When initially in the ED, he reported +SI (also while on Medicine) and, when questioned about ingestion, he replied w not enough. Per chart review from the 05/2023 Medicine admission (admitted for erratic driving / legal blood draw, while in the ED he had a syncopal episode and required Medicine admission then transfer to [facility]): He reports that he had about 2 hospitalizations in the past month. One in [facility] (04/24/2022) for acute toxic encephalopathy, drug overdose (cannabinoids, methamphetamine), and alcohol withdrawal w/ delirium tremens which required large amount of benzo. He says he had another hospitalization in [place]. He reports that one of these hospitalizations [...] as a problem, stating, I don't drive. Coremaker Floor noted that he recently missed a court date for aDUI charge and, last hospitalization here, he was brought here for a legal blood draw after being stopped for erratic driving. When asked about the pill bottles that were scattered around him, when found KILN BURNER, he could not give an explanation. Will [...] No overt paranoia. Reported +AH last edil. [facility] is supporting petition for commitment. 07/23: He [...] before him. The pt talked about his yazidi bel iefs, about not believing in suicide, [...] Xanax as effective interventions, but understanding when typewriter assembly and parts inspector offered renal concerns with diclofenac and habit-forming [...] and would appreciate increase in amitriptyline which typewriter assembly and parts inspector agreed to. 08/02: Pt calm, cooperative and [...] and use andthe resulting consequences. Referral to [place]. Speech is hyper- verbal / over-inclusive and somewhat pressured. He is less restless. No overt paranoia. 08/10: Good participation in OT groups. Overnight sleep was better than usual. (Nearly 8h documented.) He is hopeful for YASMEEN tx at [facility]. Per his usual, seemingly in hopes of [...] son involved with AA along withgoing to [employer] [place] with him. Aware of potential upcoming discharge and feels confident in his readiness. Declined naltrexone. 08/19: Friendly, somewhat guarded in discussing meeting this AM with ACT team -- told typewriter assembly and parts inspector It would take an absolute moron to be participatory in this meeting without his manager life insurance present. Unfortunately, this culminated in cancellation of meeting to coordinate care, meaning pt will not be discharging today/must remain at least through the weekend. Plan to reconvene Wednesday AM. 08/20: Largely unchanged; pain and sleep are both managed well with current regimen. Meeting from yesterday rescheduled for Wednesday given pt manager life insurance was out of office/unable to attend. Pt [...] This plan was agreed with by medical massage therapist. DIAGNOSES & PLAN Principal Psychiatric / Substance [...] symptoms. 07/19: Increase quetiapine to 100mg TID. KILN BURNER dose was 800mg qHS. UDS+ for amphetamines. 07/20: Will give Seroquel 200mg at bedtime this edil then combine doses / change dose to 400mg po qhs. Will titrate to KILN BURNER dose of 800mg po qhs as tolerated / indicated. Hold Lexapro for now. He has not been consistently taking it. Increase Neurontin to 600mg po TID. Offer Zyprexa 10mg po BID PRN. Continue CIWA protocol w PRN Valium and PRN Clonidine. 07/21: Lidocaine patch daily. Medicine consult if [facility] is issued. 07/22: Medicine consult for chronic back pain management. Increase Seroquel to 500mg po qhs. D/c PRNMelatonin and replace w PRN Benadryl. 07/23: Increase Seroquel to 600mg po qhs. Per his request, change Flexeril 10mg from TID PRN to TID.Will avoid Requip for RLS as it could worsen his [place] sxs. Instead, will increase Neurontin to 900mg po TID. Spiritual care consult ordered. 07/24: Advance Seroquel to 700mg po qhs. Add Trazodone 50mg po qhs + 50mg po qhs PRN. Changed Benadryl to PRN itching only as this could worsen RLS, if that is truly what he has. Will discuss the possibility of akathisia (vs RLS) tomorrow. 07/25: Increase Seroquel to his KILN BURNER dose of 800mg po qhs. Add a [...] he is taking it each night / wine bottle inspector as a PRN for sleep. 08/13: No [...] status and current presentation discussed with medical massage therapist Dr. Chin, who agrees with the above documentation and plan. Jaden Wetzel PA-C * Jaden Wetzel PA-C - 08/21/2023 8:18 AM CDT [facility] Psychiatry Progress Note PATIENT NAME: Nicanor Alvarado DATE OF SERVICE: 08/21/2023 ATTENDING PRACTITIONER: Jaden Wetzel PA-C HOSPITAL DAY # 32 CHIEF COMPLAINT subsequent inpatient psychiatric encounter INTERVAL HISTORY Nicanor Alvarado was seen in f/u by typewriter assembly and parts inspector, where he walked to [place] for interview. Discussed events yesterday with CM, not having manager life insurance present for meeting which was understandably frustrating. Pt feels ACM was repeatedly pressing him on questions without manager life insurance intentionally, hoping to get certain information out [...] [place]. Further, states his manager life insurance should be in support of this plan [...] Attention: intact Insight: poor Judgment: poor CONSULTATION [facility] MEDICINE, 07/24/23: Assessment / Recommendations Follow up [...] do not believe this is the best fci medication for this patient for pain control [...] perhaps even intraarticular injections for shoulder/hip/back pain. [facility] will sign off. Please reach out [...] his room over the weekend. Admitted to [facility]: 07/20: Restless on exam. Reported +AH and +paranoia (under investigation - which he is starting toquestion as the truth). Less disorganized as compared to when on Medicine. He said he was not really sure about the events KILN BURNER. He drinks alcohol heavily, nearly 3L of [employer]'s rum per week. He has been prescribed Lexapro, but he is not consistent w taking it. Sometimes I need more, referring to self medicating. He used methamphetamine KILN BURNER. He said he has +AH at his [...] denied having SI and he denied the KILN BURNER event asa SA. 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 When initially in the ED, he reported +SI (also while on Medicine) and, when questioned about ingestion, he replied w not enough. Per chart review from the 05/2023 Medicine admission (admitted for erratic driving / legal blood draw, while in the ED he had a syncopal episode and required Medicine admission then transfer to [facility]): He reports that he had about 2 hospitalizations in the past month. One in [facility] (04/24/2022) for acute toxic encephalopathy, drug overdose (cannabinoids, methamphetamine), and alcohol withdrawal w/ delirium tremens which required large amount of benzo. He says he had another hospitalization in [place]. He reports that one of these hospitalizations [...] tofacilitate a door to door transfer to [facility]. He was educated on his risk of relapse and reminded of his recent hospitalizations, related to use / overdosing. Pt was reminded that he himself stated someone could have in relation to the events prior to this admission. He does not see his drinking as a problem, stating, I don't drive. [employer] Floor noted that he recently missed a court date for aDUI charge and, last hospitalization here, he was brought here for a legal blood draw after being stopped for erratic driving. When asked about the pill bottles that were scattered around him, when found KILN BURNER, he could not give an explanation. Will [...] No overt paranoia. Reported +AH last edil. [facility] is supporting petition for commitment. 07/23: He [...] before him. The pt talked about his yazidi bel iefs, about not believing in suicide, [...] Xanax as effective interventions, but understanding when typewriter assembly and parts inspector offered renal concerns with diclofenac and habit-forming [...] and would appreciate increase in amitriptyline which typewriter assembly and parts inspector agreed to. 08/02: Pt calm, cooperative and [...] and use andthe resulting consequences. Referral to [place]. Speech is hyper- verbal / over-inclusive and somewhat pressured. He is less restless. No overt paranoia. 6/5: Good participation in OT groups. Overnight sleep was better than usual. (Nearly 8h documented.) He is hopeful for YASMEEN tx at [place]. Per his usual, seemingly in hopes of [...] son involved with AA along withgoing to [facility] with him. Aware of potential upcoming discharge and feels confident in his readiness. Declined naltrexone. 08/19: Friendly, somewhat guarded in discussing meeting this AM with ACT team -- told typewriter assembly and parts inspector It would take an absolute moron to be participatory in this meeting without his manager life insurance present. Unfortunately, this culminated in cancellation of meeting to coordinate care, meaning pt will not be discharging today/must remain at least through the weekend. Plan to reconvene Wednesday AM. 08/20: Largely unchanged; pain and sleep are both managed well with current regimen. Meeting from yesterday rescheduled for Wednesday given pt manager life insurance was out of office/unable to attend. Pt [...] symptoms. 07/19: Increase quetiapine to 100mg TID. KILN BURNER dose was 800mg qHS. UDS+ for amphetamines. 07/20: Will give Seroquel 200mg at bedtime this edil then combine doses / change dose to 400mg po qhs. Will titrate to KILN BURNER dose of 800mg po qhs as tolerated [...] for RLS as it could worsen his [place] sxs. Instead, will increase Neurontin to 900mg po TID. Spiritual care consult ordered. 07/24: Advance Seroquel to 700mg po qhs. Add Trazodone 50mg po qhs + 50mg po qhs PRN. Changed Benadryl to PRN itching only as this could worsen RLS, if that is truly what he has. Will discuss the possibility of akathisia (vs RLS) tomorrow. 07/25: Increase Seroquel to his KILN BURNER dose of 800mg po qhs. Add a [...] he is taking it each night / wine bottle inspector as a PRN for sleep. 08/13: No [...] Wetzel PA-C - 08/20/2023 11:24 AM CDT [facility] Psychiatry Progress Note PATIENT NAME: Nicanor Alvarado DATE OF SERVICE: 08/20/2023 ATTENDING PRACTITIONER: Jaden Wetzel PA-C HOSPITAL DAY # 31 CHIEF COMPLAINT subsequent inpatient psychiatric encounter INTERVAL HISTORY Nicanor Alvarado was seen in f/u by typewriter assembly and parts inspector and MD, where he was sitting on the unit and agreed to interview. Notes he is fine, apart from the baseline pain. No concerns expressed surrounding sleep. Hopeful for discharge today, but aware of meeting this AM with case management that will need to be completed before this will be known. Pt reports issue with the meeting itself, as his manager life insurance is not working today and he won't say a word without my manager life insurance present. It would take an absolute moron [...] peers, controlled. Early in shift he had typewriter assembly and parts inspector apply the [employer] ungt to his right [...] because of that and the phone issue. Coremaker Floor assured him that staff can check in the am. Coremaker Floor left for ADA Velazco. His phone seemed [...] Attention: intact Insight: poor Judgment: poor CONSULTATION [facility] MEDICINE, 07/24/23: Assessment / Recommendations Follow up [...] do not believe this is the best fci medication for this patient for pain control [...] male who has been admitted to station [facility] for AH, paranoia, substance withdrawal, and possible [...] was not really sure about the events KILN BURNER. He drinks alcohol heavily, nearly 3L of Captain Ryan's rum per week. He has been prescribed Lexapro, but he is not consistent w taking it. Sometimes I need more, referring to self medicating. He used methamphetamine KILN BURNER. He said he has +AH at his [...] denied having SI and he denied the KILN BURNER event asa SA. 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 When initially in the ED, he reported +SI (also while on Medicine) and, when questioned about ingestion, he replied w not enough. Per chart review from the 05/2023 Medicine admission (admitted for erratic driving / legal blood draw, while in the ED he had a syncopal episode and required Medicine admission then transfer to [facility]): He reports that he had about 2 hospitalizations in the past month. One in [facility] (04/24/2022) for acute toxic encephalopathy, drug overdose (cannabinoids, methamphetamine), and alcohol withdrawal w/ delirium tremens which required large amount of benzo. He says he had another hospitalization in [place]. He reports that one of these hospitalizations [...] as a problem, stating, I don't drive. Coremaker Floor noted that he recently missed a court date for aDUI charge and, last hospitalization here, he was brought here for a legal blood draw after being stopped for erratic driving. When asked about the pill bottles that were scattered around him, when found KILN BURNER, he could not give an explanation. Will [...] No overt paranoia. Reported +AH last edil. [facility] is supporting petition for commitment. 07/23: He [...] before him. The pt talked about his yazidi bel iefs, about not believing in suicide, [...] Xanax as effective interventions, but understanding when typewriter assembly and parts inspector offered renal concerns with diclofenac and habit-forming [...] and would appreciate increase in amitriptyline which typewriter assembly and parts inspector agreed to. 08/02: Pt calm, cooperative and [...] and use andthe resulting consequences. Referral to [place]. Speech is hyper- verbal / over-inclusive and somewhat pressured. He is less restless. No overt paranoia. 08/10: Good participation in OT groups. Overnight sleep was better than usual. (Nearly 8h documented.) He is hopeful for [facility] tx at [facility]. Per his usual, seemingly in hopes of [...] son involved with AA along withgoing to [employer] [facility] with him. Aware of potential upcoming discharge and feels confident in his readiness. Declined naltrexone. 08/19: Friendly, somewhat guarded in discussing meeting this AM with ACT team -- told typewriter assembly and parts inspector It would take an absolute moron to be participatory in this meeting without his manager life insurance present. Unfortunately, this culminated in cancellation of [...] symptoms. 07/19: Increase quetiapine to 100mg TID. KILN BURNER dose was 800mg qHS. UDS+ for amphetamines. 07/20: Will give Seroquel 200mg at bedtime this edil then combine doses / change dose to 400mg po qhs. Will titrate to KILN BURNER dose of 800mg po qhs as tolerated [...] for RLS as it could worsen his [place] sxs. Instead, will increase Neurontin to 900mg po TID. Spiritual care consult ordered. 07/24: Advance Seroquel to 700mg po qhs. Add Trazodone 50mg po qhs + 50mg po qhs PRN. Changed Benadryl to PRN itching only as this could worsen RLS, if that is truly what he has. Will discuss the possibility of akathisia (vs RLS) tomorrow. 07/25: Increase Seroquel to his KILN BURNER dose of 800mg po qhs. Add a [...] he is taking it each night / wine bottle inspector as a PRN for sleep. 08/13: No [...] Wetzel PA-C - 08/19/2023 8:35 AM CDT [facility] Psychiatry Progress Note PATIENT NAME: Nicanor Alvarado DATE OF SERVICE: 08/19/2023 ATTENDING PRACTITIONER: Jaden Wetzel PA-C HOSPITAL DAY # 30 CHIEF COMPLAINT subsequent inpatient psychiatric encounter INTERVAL HISTORY Nicanor Alvarado was seen in f/u by typewriter assembly and parts inspector and APC Fellow, where he is seen [...] would be willing to attend AA and/or [employer] with him moving forward. 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 He drinks alcohol heavily, nearly 3L of [place] Bergers rum per week. He has been prescribed Lexapro, but he is not consistent w taking it. Sometimes I need more, referring to self medicating. He used methamphetamine KILN BURNER. He said he has +AH at his [...] denied having SI and he denied the KILN BURNER event asa SA. 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 When initially in the ED, he reported +SI (also while on Medicine) and, when questioned about ingestion, he replied w not enough. Per chart review from the 05/2023 Medicine admission (admitted for erratic driving / legal blood draw, while in the ED he had a syncopal episode and required Medicine admission then transfer to [facility]): He reports that he had about 2 hospitalizations in the past month. One in [facility] (04/24/2022) for acute toxic encephalopathy, drug overdose (cannabinoids, methamphetamine), and alcohol withdrawal w/ delirium tremens which required large amount of benzo. He says he had another hospitalization in [place]. He reports that one of these hospitalizations [...] as a problem, stating, I don't drive. Coremaker Floor noted that he recently missed a court date for aDUI charge and, last hospitalization here, he was brought here for a legal blood draw after being stopped for erratic driving. When asked about the pill bottles that were scattered around him, when found KILN BURNER, he could not give an explanation. Will [...] No overt paranoia. Reported +AH last edil. [facility] is supporting petition for commitment. 07/23: He [...] before him. The pt talked about his yazidi bel iefs, about not believing in suicide, [...] Xanax as effective interventions, but understanding when typewriter assembly and parts inspector offered renal concerns with diclofenac and habit-forming [...] and would appreciate increase in amitriptyline which typewriter assembly and parts inspector agreed to. 08/02: Pt calm, cooperative and [...] and use andthe resulting consequences. Referral to [place]. Speech is hyper- verbal / over-inclusive and somewhat pressured. He is less restless. No overt paranoia. 08/10: Good participation in OT groups. Overnight sleep was better than usual. (Nearly 8h documented.) He is hopeful for Y[facility]ME[facility] tx at [place]. Per his usual, seemingly in hopes of [...] son involved with AA along withgoing to [employer] [facility] with him. Aware of potential upcoming [...] symptoms. 07/19: Increase quetiapine to 100mg TID. KILN BURNER dose was 800mg qHS. UDS+ for amphetamines. 07/20: Will give Seroquel 200mg at bedtime this edil then combine doses / change dose to 400mg po qhs. Will titrate to KILN BURNER dose of 800mg po qhs as tolerated [...] for RLS as it could worsen his [place] sxs. Instead, will increase Neurontin to 900mg po TID. Spiritual care consult ordered. 07/24: Advance Seroquel to 700mg po qhs. Add Trazodone 50mg po qhs + 50mg po qhs PRN. Changed Benadryl to PRN itching only as this could worsen RLS, if that is truly what he has. Will discuss the possibility of akathisia (vs RLS) tomorrow. 07/25: Increase Seroquel to his KILN BURNER dose of 800mg po qhs. Add a [...] he is taking it each night / wine bottle inspector as a PRN for sleep. 08/13: No [...] Wetzel PA-C - 08/18/2023 8:55 AM CDT [facility] Psychiatry Progress Note PATIENT NAME: Nicanor Alvarado DATE OF SERVICE: 08/18/2023 ATTENDING PRACTITIONER: Jaden Wetzel PA-C HOSPITAL DAY # 29 CHIEF COMPLAINT subsequent inpatient psychiatric encounter INTERVAL HISTORY Nicanor Alvarado was seen in f/u by typewriter assembly and parts inspector and APC Fellow on unit, where he [...] do not believe this is the best intermediate school teacher medication for this patient for pain control [...] male who has been admitted to station [facility] for AH, paranoia, substance withdrawal, and possible [...] his room over the weekend. Admitted to CT4: 07/20: Restless on exam. Reported +AH and +paranoia (under investigation - which he is starting toquestion as the truth). Less disorganized as compared to when on Medicine. He said he was not really sure about the events KILN BURNER. He drinks alcohol heavily, nearly 3L of Captain Ryan's rum per week. He has been prescribed Lexapro, but he is not consistent w taking it. Sometimes I need more, referring to self medicating. He used methamphetamine KILN BURNER. He said he has +AH at his [...] denied having SI and he denied the KILN BURNER event asa SA. 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 When initially in the ED, he reported +SI (also while on Medicine) and, when questioned about ingestion, he replied w not enough. Per chart review from the 05/2023 Medicine admission (admitted for erratic driving / legal blood draw, while in the ED he had a syncopal episode and required Medicine admission then transfer to [facility]): He reports that he had about 2 hospitalizations in the past month. One in [facility] (04/24/2022) for acute toxic encephalopathy, drug overdose (cannabinoids, methamphetamine), and alcohol withdrawal w/ delirium tremens which required large amount of benzo. He says he had another hospitalization in [place]. He reports that one of these hospitalizations [...] as a problem, stating, I don't drive. Coremaker Floor noted that he recently missed a court date for aDUI charge and, last hospitalization here, he was brought here for a legal blood draw after being stopped for erratic driving. When asked about the pill bottles that were scattered around him, when found KILN BURNER, he could not give an explanation. Will [...] No overt paranoia. Reported +AH last edil. [facility] is supporting petition for commitment. 07/23: He [...] before him. The pt talked about his yazidi bel iefs, about not believing in suicide, [...] Xanax as effective interventions, but understanding when typewriter assembly and parts inspector offered renal concerns with diclofenac and habit-forming [...] and would appreciate increase in amitriptyline which typewriter assembly and parts inspector agreed to. 08/02: Pt calm, cooperative and [...] and use andthe resulting consequences. Referral to [place]. Speech is hyper- verbal / over-inclusive and somewhat pressured. He is less restless. No overt paranoia. 08/10: Good participation in OT groups. Overnight sleep was better than usual. (Nearly 8h documented.) He is hopeful for [facility] tx at [facility]. Per his usual, seemingly in hopes of [...] symptoms. 07/19: Increase quetiapine to 100mg TID. KILN BURNER dose was 800mg qHS. UDS+ for amphetamines. 07/20: Will give Seroquel 200mg at bedtime this edil then combine doses / change dose to 400mg po qhs. Will titrate to KILN BURNER dose of 800mg po qhs as tolerated / indicated. Hold Lexapro for now. He has not been consistently taking it. Increase Neurontin to 600mg po TID. Offer Zyprexa 10mg po BID PRN. Continue CIWA protocol w PRN Valium and PRN Clonidine. 07/21: Lidocaine patch daily. Medicine consult if [facility] is issued. 07/22: Medicine consult for chronic back pain management. Increase Seroquel to 500mg po qhs. D/c PRNMelatonin and replace w PRN Benadryl. 07/23: Increase Seroquel to 600mg po qhs. Per his request, change Flexeril 10mg from TID PRN to TID.Will avoid Requip for RLS as it could worsen his [place] sxs. Instead, will increase Neurontin to 900mg po TID. Spiritual care consult ordered. 07/24: Advance Seroquel to 700mg po qhs. Add Trazodone 50mg po qhs + 50mg po qhs PRN. Changed Benadryl to PRN itching only as this could worsen RLS, if that is truly what he has. Will discuss the possibility of akathisia (vs RLS) tomorrow. 07/25: Increase Seroquel to his KILN BURNER dose of 800mg po qhs. Add a [...] he is taking it each night / wine bottle inspector as a PRN for sleep. 08/13: No [...] Wetzel PA-C - 08/17/2023 9:47 AM CDT [facility] Psychiatry Progress Note PATIENT NAME: Nicanor Alvarado DATE OF SERVICE: 08/17/2023 ATTENDING PRACTITIONER: Jaden Wetzel PA-C HOSPITAL DAY # 28 CHIEF COMPLAINT subsequent inpatient psychiatric encounter INTERVAL HISTORY Nicanor Alvarado was seen in f/u by typewriter assembly and parts inspector on unit, where he is sitting watching [...] Attention: intact Insight: poor Judgment: poor CONSULTATION [facility] MEDICINE, 07/24/23: Assessment / Recommendations Follow up [...] do not believe this is the best intermediate school teacher medication for this patient for pain control [...] male who has been admitted to station [facility] for AH, paranoia, substance withdrawal, and possible [...] his room over the weekend. Admitted to CT4: 07/20: Restless on exam. Reported +AH and +paranoia (under investigation - which he is starting toquestion as the truth). Less disorganized as compared to when on Medicine. He said he was not really sure about the events KILN BURNER. He drinks alcohol heavily, nearly 3L of [place] Bergers rum per week. He has been prescribed Lexapro, but he is not consistent w taking it. Sometimes I need more, referring to self medicating. He used methamphetamine KILN BURNER. He said he has +AH at his [...] denied having SI and he denied the KILN BURNER event asa SA. 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 When initially in the ED, he reported +SI (also while on Medicine) and, when questioned about ingestion, he replied w not enough. Per chart review from the 05/2023 Medicine admission (admitted for erratic driving / legal blood draw, while in the ED he had a syncopal episode and required Medicine admission then transfer to [facility]): He reports that he had about 2 hospitalizations in the past month. One in [facility] (04/24/2022) for acute toxic encephalopathy, drug overdose (cannabinoids, methamphetamine), and alcohol withdrawal w/ delirium tremens which required large amount of benzo. He says he had another hospitalization in [place]. He reports that one of these hospitalizations [...] as a problem, stating, I don't drive. Coremaker Floor noted that he recently missed a court date for aDUI charge and, last hospitalization here, he was brought here for a legal blood draw after being stopped for erratic driving. When asked about the pill bottles that were scattered around him, when found KILN BURNER, he could not give an explanation. Will [...] No overt paranoia. Reported +AH last edil. [facility] is supporting petition for commitment. 07/23: He [...] before him. The pt talked about his yazidi bel iefs, about not believing in suicide, [...] Xanax as effective interventions, but understanding when typewriter assembly and parts inspector offered renal concerns with diclofenac and habit-forming [...] and would appreciate increase in amitriptyline which typewriter assembly and parts inspector agreed to. 08/02: Pt calm, cooperative and [...] and use andthe resulting consequences. Referral to [place]. Speech is hyper- verbal / over-inclusive and somewhat pressured. He is less restless. No overt paranoia. 08/10: Good participation in OT groups. Overnight sleep was better than usual. (Nearly 8h documented.) He is hopeful for [facility] tx at [place]. Per his usual, seemingly in hopes of [...] symptoms. 07/19: Increase quetiapine to 100mg TID. KILN BURNER dose was 800mg qHS. UDS+ for amphetamines. 07/20: Will give Seroquel 200mg at bedtime this edil then combine doses / change dose to 400mg po qhs. Will titrate to KILN BURNER dose of 800mg po qhs as tolerated / indicated. Hold Lexapro for now. He has not been consistently taking it. Increase Neurontin to 600mg po TID. Offer Zyprexa 10mg po BID PRN. Continue CIWA protocol w PRN Valium and PRN Clonidine. 07/21: Lidocaine patch daily. Medicine consult if [facility] is issued. 07/22: Medicine consult for chronic back pain management. Increase Seroquel to 500mg po qhs. D/c PRNMelatonin and replace w PRN Benadryl. 07/23: Increase Seroquel to 600mg po qhs. Per his request, change Flexeril 10mg from TID PRN to TID.Will avoid Requip for RLS as it could worsen his [place] sxs. Instead, will increase Neurontin to 900mg po TID. Spiritual care consult ordered. 07/24: Advance Seroquel to 700mg po qhs. Add Trazodone 50mg po qhs + 50mg po qhs PRN. Changed Benadryl to PRN itching only as this could worsen RLS, if that is truly what he has. Will discuss the possibility of akathisia (vs RLS) tomorrow. 07/25: Increase Seroquel to his KILN BURNER dose of 800mg po qhs. Add a [...] he is taking it each night / wine bottle inspector as a PRN for sleep. 08/13: No [...] Rutledge PA-C - 08/16/2023 2:45 PM CDT [facility] Psychiatry Progress Note PATIENT NAME: Nicanor Alvarado DATE OF SERVICE: 08/16/2023 ATTENDING PRACTITIONER: Kristin Rutledge PA-C HOSPITAL DAY # 27 CHIEF COMPLAINT subsequent inpatient psychiatric encounter INTERVAL HISTORY Nicanor Alvarado was seen in f/u by typewriter assembly and parts inspector and MD. Today, he verbalized satisfaction w [...] do not believe this is the best fci medication for this patient for pain control [...] perhaps even intraarticular injections for shoulder/hip/back pain. Aubrey will sign off. Please reach out with [...] male who has been admitted to station [facility] for AH, paranoia, substance withdrawal, and possible [...] his room over the weekend. Admitted to [facility]: 07/20: Restless on exam. Reported +AH and +paranoia (under investigation - which he is starting toquestion as the truth). Less disorganized as compared to when on Medicine. He said he was not really sure about the events KILN BURNER. He drinks alcohol heavily, nearly 3L of [place]'s rum per week. He has been prescribed Lexapro, but he is not consistent w taking it. Sometimes I need more, referring to self medicating. He used methamphetamine KILN BURNER. He said he has +AH at his [...] denied having SI and he denied the KILN BURNER event asa SA. 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 When initially in the ED, he reported +SI (also while on Medicine) and, when questioned about ingestion, he replied w not enough. Per chart review from the 05/2023 Medicine admission (admitted for erratic driving / legal blood draw, while in the ED he had a syncopal episode and required Medicine admission then transfer to [facility]): He reports that he had about 2 hospitalizations in the past month. One in [facility] (04/24/2022) for acute toxic encephalopathy, drug overdose (cannabinoids, methamphetamine), and alcohol withdrawal w/ delirium tremens which required large amount of benzo. He says he had another hospitalization in [place]. He reports that one of these hospitalizations [...] as a problem, stating, I don't drive. Coremaker Floor noted that he recently missed a court date for aDUI charge and, last hospitalization here, he was brought here for a legal blood draw after being stopped for erratic driving. When asked about the pill bottles that were scattered around him, when found KILN BURNER, he could not give an explanation. Will [...] No overt paranoia. Reported +AH last edil. [facility] is supporting petition for commitment. 07/23: He [...] before him. The pt talked about his yazidi bel iefs, about not believing in suicide, [...] Xanax as effective interventions, but understanding when typewriter assembly and parts inspector offered renal concerns with diclofenac and habit-forming [...] and would appreciate increase in amitriptyline which typewriter assembly and parts inspector agreed to. 08/02: Pt calm, cooperative and [...] and use andthe resulting consequences. Referral to [place]. Speech is hyper- verbal / over-inclusive and somewhat pressured. He is less restless. No overt paranoia. 08/10: Good participation in OT groups. Overnight sleep was better than usual. (Nearly 8h documented.) He is hopeful for YASEMEN tx at [facility]. Per his usual, seemingly in hopes of getting a prescription, he added a veiled threat to use NSAIDs and/or opioids on his own after d/c, feeling he has no other choice. No insight into his kidney health or addiction. I'd rather my kidneys fail than live inflin. 08/11: Less restless. Less med seeking. Reported [...] symptoms. 07/19: Increase quetiapine to 100mg TID. KILN BURNER dose was 800mg qHS. UDS+ for amphetamines. 07/20: Will give Seroquel 200mg at bedtime this edil then combine doses / change dose to 400mg po qhs. Will titrate to KILN BURNER dose of 800mg po qhs as tolerated [...] for RLS as it could worsen his [place] sxs. Instead, will increase Neurontin to 900mg po TID. Spiritual care consult ordered. 07/24: Advance Seroquel to 700mg po qhs. Add Trazodone 50mg po qhs + 50mg po qhs PRN. Changed Benadryl to PRN itching only as this could worsen RLS, if that is truly what he has. Will discuss the possibility of akathisia (vs RLS) tomorrow. 07/25: Increase Seroquel to his KILN BURNER dose of 800mg po qhs. Add a [...] he is taking it each night / wine bottle inspector as a PRN for sleep. 08/13: No [...] Rutledge PA-C - 08/15/2023 2:40 PM CDT [facility] Psychiatry Progress Note PATIENT NAME: Nicanor Alvarado DATE OF SERVICE: 08/15/2023 ATTENDING PRACTITIONER: Kristin Rutledge PA-C HOSPITAL DAY # 26 CHIEF COMPLAINT subsequent inpatient psychiatric encounter INTERVAL HISTORY Nicanor Alvarado was seen in f/u by typewriter assembly and parts inspector and MD. Providers complimented his new haircut. [...] Attention: intact Insight: poor Judgment: poor CONSULTATION [facility] MEDICINE, 07/24/23: Assessment / Recommendations Follow up [...] do not believe this is the best fci medication for this patient for pain control [...] male who has been admitted to station [facility] for AH, paranoia, substance withdrawal, and possible [...] his room over the weekend. Admitted to CT4: 07/20: Restless on exam. Reported +AH and +paranoia (under investigation - which he is starting toquestion as the truth). Less disorganized as compared to when on Medicine. He said he was not really sure about the events KILN BURNER. He drinks alcohol heavily, nearly 3L of [place] Ryan's rum per week. He has been prescribed Lexapro, but he is not consistent w taking it. Sometimes I need more, referring to self medicating. He used methamphetamine KILN BURNER. He said he has +AH at his [...] denied having SI and he denied the KILN BURNER event asa SA. 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 When initially in the ED, he reported +SI (also while on Medicine) and, when questioned about ingestion, he replied w not enough. Per chart review from the 05/2023 Medicine admission (admitted for erratic driving / legal blood draw, while in the ED he had a syncopal episode and required Medicine admission then transfer to [facility]): He reports that he had about 2 hospitalizations in the past month. One in [facility] (04/24/2022) for acute toxic encephalopathy, drug overdose (cannabinoids, methamphetamine), and alcohol withdrawal w/ delirium tremens which required large amount of benzo. He says he had another hospitalization in [place]. He reports that one of these hospitalizations [...] as a problem, stating, I don't drive. [employer] noted that he recently missed a court date for aDUI charge and, last hospitalization here, he was brought here for a legal blood draw after being stopped for erratic driving. When asked about the pill bottles that were scattered around him, when found KILN BURNER, he could not give an explanation. Will [...] No overt paranoia. Reported +AH last edil. [facility] is supporting petition for commitment. 07/23: He [...] before him. The pt talked about his yazidi bel iefs, about not believing in suicide, [...] Xanax as effective interventions, but understanding when typewriter assembly and parts inspector offered renal concerns with diclofenac and habit-forming [...] and would appreciate increase in amitriptyline which typewriter assembly and parts inspector agreed to. 08/02: Pt calm, cooperative and [...] and use andthe resulting consequences. Referral to [place]. Speech is hyper- verbal / over-inclusive and somewhat pressured. He is less restless. No overt paranoia. 08/10: Good participation in OT groups. Overnight sleep was better than usual. (Nearly 8h documented.) He is hopeful for YASMEEN tx at [facility]. Per his usual, seemingly in hopes of [...] symptoms. 07/19: Increase quetiapine to 100mg TID. KILN BURNER dose was 800mg qHS. UDS+ for amphetamines. 07/20: Will give Seroquel 200mg at bedtime this edil then combine doses / change dose to 400mg po qhs. Will titrate to KILN BURNER dose of 800mg po qhs as tolerated / indicated. Hold Lexapro for now. He has not been consistently taking it. Increase Neurontin to 600mg po TID. Offer Zyprexa 10mg po BID PRN. Continue CIWA protocol w PRN Valium and PRN Clonidine. 07/21: Lidocaine patch daily. Medicine consult if [facility] is issued. 07/22: Medicine consult for chronic back pain management. Increase Seroquel to 500mg po qhs. D/c PRNMelatonin and replace w PRN Benadryl. 07/23: Increase Seroquel to 600mg po qhs. Per his request, change Flexeril 10mg from TID PRN to TID.Will avoid Requip for RLS as it could worsen his [place] sxs. Instead, will increase Neurontin to 900mg po TID. Spiritual care consult ordered. 07/24: Advance Seroquel to 700mg po qhs. Add Trazodone 50mg po qhs + 50mg po qhs PRN. Changed Benadryl to PRN itching only as this could worsen RLS, if that is truly what he has. Will discuss the possibility of akathisia (vs RLS) tomorrow. 07/25: Increase Seroquel to his KILN BURNER dose of 800mg po qhs. Add a [...] he is taking it each night / wine bottle inspector as a PRN for sleep. 08/13: No [...] Rutledge PA-C - 08/14/2023 2:21 PM CDT [facility] Psychiatry Progress Note PATIENT NAME: Nicanor Alvarado DATE OF SERVICE: 08/14/2023 ATTENDING PRACTITIONER: Kristin Rutledge PA-C HOSPITAL DAY # 25 CHIEF COMPLAINT subsequent inpatient psychiatric encounter INTERVAL HISTORY Nicanor Alvarado was seen in f/u by typewriter assembly and parts inspector and MD. We discussed addition of scheduled Zyprexa at bedtime, starting last edil. He said it did not make a change in his sleep pattern. He took an additional Zyprexa PRN in the wine bottle inspector. He inquired about his most recent laboratory [...] Attention: intact Insight: poor Judgment: poor CONSULTATION [facility] MEDICINE, 07/24/23: Assessment / Recommendations Follow up [...] do not believe this is the best intermediate school teacher medication for this patient for pain control [...] male who has been admitted to station [facility] for AH, paranoia, substance withdrawal, and possible [...] was not really sure about the events KILN BURNER. He drinks alcohol heavily, nearly 3L of [place] Bergers rum per week. He has been prescribed Lexapro, but he is not consistent w taking it. Sometimes I need more, referring to self medicating. He used methamphetamine KILN BURNER. He said he has +AH at his [...] denied having SI and he denied the KILN BURNER event asa SA. 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 When initially in the ED, he reported +SI (also while on Medicine) and, when questioned about ingestion, he replied w not enough. Per chart review from the 05/2023 Medicine admission (admitted for erratic driving / legal blood draw, while in the ED he had a syncopal episode and required Medicine admission then transfer to [facility]): He reports that he had about 2 hospitalizations in the past month. One in [facility] (04/24/2022) for acute toxic encephalopathy, drug overdose (cannabinoids, methamphetamine), and alcohol withdrawal w/ delirium tremens which required large amount of benzo. He says he had another hospitalization in [place]. He reports that one of these hospitalizations [...] as a problem, stating, I don't drive. [employer] noted that he recently missed a court date for aDUI charge and, last hospitalization here, he was brought here for a legal blood draw after being stopped for erratic driving. When asked about the pill bottles that were scattered around him, when found KILN BURNER, he could not give an explanation. Will [...] No overt paranoia. Reported +AH last edil. [facility]. 07/23: He is frustrated w [...] before him. The pt talked about his yazidi bel iefs, about not believing in suicide, [...] Xanax as effective interventions, but understanding when typewriter assembly and parts inspector offered renal concerns with diclofenac and habit-forming [...] and would appreciate increase in amitriptyline which typewriter assembly and parts inspector agreed to. 08/02: Pt calm, cooperative and [...] and use andthe resulting consequences. Referral to [place]. Speech is hyper- verbal / over-inclusive and somewhat pressured. He is less restless. No overt paranoia. 08/10: Good participation in OT groups. Overnight sleep was better than usual. (Nearly 8h documented.) He is hopeful for YASMEEN tx at [facility]. Per his usual, seemingly in hopes of [...] symptoms. 07/19: Increase quetiapine to 100mg TID. KILN BURNER dose was 800mg qHS. UDS+ for amphetamines. 07/20: Will give Seroquel 200mg at bedtime this edil then combine doses / change dose to 400mg po qhs. Will titrate to KILN BURNER dose of 800mg po qhs as tolerated / indicated. Hold Lexapro for now. He has not been consistently taking it. Increase Neurontin to 600mg po TID. Offer Zyprexa 10mg po BID PRN. Continue CIWA protocol w PRN Valium and PRN Clonidine. 07/21: Lidocaine patch daily. Medicine consult if [facility] is issued. 07/22: Medicine consult for chronic back pain management. Increase Seroquel to 500mg po qhs. D/c PRNMelatonin and replace w PRN Benadryl. 07/23: Increase Seroquel to 600mg po qhs. Per his request, change Flexeril 10mg from TID PRN to TID.Will avoid Requip for RLS as it could worsen his [place] sxs. Instead, will increase Neurontin to 900mg po TID. Spiritual care consult ordered. 07/24: Advance Seroquel to 700mg po qhs. Add Trazodone 50mg po qhs + 50mg po qhs PRN. Changed Benadryl to PRN itching only as this could worsen RLS, if that is truly what he has. Will discuss the possibility of akathisia (vs RLS) tomorrow. 07/25: Increase Seroquel to his KILN BURNER dose of 800mg po qhs. Add a [...] he is taking it each night / wine bottle inspector as a PRN for sleep. 08/13: No [...] Rutledge PA-C - 08/13/2023 2:55 PM CDT [facility] Psychiatry Progress Note PATIENT NAME: Nicanor Alvarado DATE OF SERVICE: 08/13/2023 ATTENDING PRACTITIONER: Kristin Rutledge PA-C HOSPITAL DAY # 24 CHIEF COMPLAINT subsequent inpatient psychiatric encounter INTERVAL HISTORY Nicanor Alvarado was seen in f/u by typewriter assembly and parts inspector and ORAL SURGERY TECHNICIAN-fellow. Pt reported last night's sleep to [...] he is taking it each night / wine bottle inspector as a PRN. He again talked about [...] Attention: intact Insight: poor Judgment: poor CONSULTATION [facility] MEDICINE, 07/24/23: Assessment / Recommendations Follow up [...] do not believe this is the best intermediate school teacher medication for this patient for pain control [...] male who has been admitted to station [facility] for AH, paranoia, substance withdrawal, and possible [...] was not really sure about the events KILN BURNER. He drinks alcohol heavily, nearly 3L of [place] Bergers rum per week. He has been prescribed Lexapro, but he is not consistent w taking it. Sometimes I need more, referring to self medicating. He used methamphetamine KILN BURNER. He said he has +AH at his [...] denied having SI and he denied the KILN BURNER event asa SA. 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 When initially in the ED, he reported +SI (also while on Medicine) and, when questioned about ingestion, he replied w not enough. Per chart review from the 05/2023 Medicine admission (admitted for erratic driving / legal blood draw, while in the ED he had a syncopal episode and required Medicine admission then transfer to [facility]): He reports that he had about 2 hospitalizations in the past month. One in [facility] (04/24/2022) for acute toxic encephalopathy, drug overdose (cannabinoids, methamphetamine), and alcohol withdrawal w/ delirium tremens which required large amount of benzo. He says he had another hospitalization in [place]. He reports that one of these hospitalizations [...] as a problem, stating, I don't drive. [employer] noted that he recently missed a court date for aDUI charge and, last hospitalization here, he was brought here for a legal blood draw after being stopped for erratic driving. When asked about the pill bottles that were scattered around him, when found KILN BURNER, he could not give an explanation. Will [...] No overt paranoia. Reported +AH last edil. [facility] is supporting petition for commitment. 07/23: He [...] before him. The pt talked about his yazidi bel iefs, about not believing in suicide, [...] Xanax as effective interventions, but understanding when typewriter assembly and parts inspector offered renal concerns with diclofenac and habit-forming [...] and would appreciate increase in amitriptyline which typewriter assembly and parts inspector agreed to. 08/02: Pt calm, cooperative and [...] and use andthe resulting consequences. Referral to [place]. Speech is hyper- verbal / over-inclusive and somewhat pressured. He is less restless. No overt paranoia. 08/10: Good participation in OT groups. Overnight sleep was better than usual. (Nearly 8h documented.) He is hopeful for YAS[facility]EN tx at [facility]. Per his usual, seemingly in hopes of [...] symptoms. 07/19: Increase quetiapine to 100mg TID. KILN BURNER dose was 800mg qHS. UDS+ for amphetamines. 07/20: Will give Seroquel 200mg at bedtime this edil then combine doses / change dose to 400mg po qhs. Will titrate to KILN BURNER dose of 800mg po qhs as tolerated / indicated. Hold Lexapro for now. He has not been consistently taking it. Increase Neurontin to 600mg po TID. Offer Zyprexa 10mg po BID PRN. Continue CIWA protocol w PRN Valium and PRN Clonidine. 07/21: Lidocaine patch daily. Medicine consult if [facility] is issued. 07/22: Medicine consult for chronic back pain management. Increase Seroquel to 500mg po qhs. D/c PRNMelatonin and replace w PRN Benadryl. 07/23: Increase Seroquel to 600mg po qhs. Per his request, change Flexeril 10mg from TID PRN to TID.Will avoid Requip for RLS as it could worsen his [place] sxs. Instead, will increase Neurontin to 900mg po TID. Spiritual care consult ordered. 07/24: Advance Seroquel to 700mg po qhs. Add Trazodone 50mg po qhs + 50mg po qhs PRN. Changed Benadryl to PRN itching only as this could worsen RLS, if that is truly what he has. Will discuss the possibility of akathisia (vs RLS) tomorrow. 07/25: Increase Seroquel to his KILN BURNER dose of 800mg po qhs. Add a [...] he is taking it each night / wine bottle inspector as a PRN for sleep. sCr remains [...] Rutledge PA-C - 08/12/2023 2:32 PM CDT [facility] Psychiatry Progress Note PATIENT NAME: Nicanor Alvarado DATE OF SERVICE: 08/12/2023 ATTENDING PRACTITIONER: Kristin Rutledge PA-C HOSPITAL DAY # 23 CHIEF COMPLAINT subsequent inpatient psychiatric encounter INTERVAL HISTORY Nicanor Alvarado was seen in f/u by typewriter assembly and parts inspector, , and ORAL SURGERY TECHNICIAN-fellow. [employer] noted the pt was observed inmovement group [...] for acceptance to YASMEEN tx at either [facility] or [place]. He said his overnight sleep was very acceptable. Denied further paranoia or AH (as reported during initial part of hospitalization). He reported that despite his bx KILN BURNER, his mother wants him to return to [...] do not believe this is the best fci medication for this patient for pain control [...] his room over the weekend. Admitted to CT4: 07/20: Restless on exam. Reported +AH and +paranoia (under investigation - which he is starting toquestion as the truth). Less disorganized as compared to when on Medicine. He said he was not really sure about the events KILN BURNER. He drinks alcohol heavily, nearly 3L of [place]'s rum per week. He has been prescribed Lexapro, but he is not consistent w taking it. Sometimes I need more, referring to self medicating. He used methamphetamine KILN BURNER. He said he has +AH at his [...] denied having SI and he denied the KILN BURNER event asa SA. 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 When initially in the ED, he reported +SI (also while on Medicine) and, when questioned about ingestion, he replied w not enough. Per chart review from the 05/2023 Medicine admission (admitted for erratic driving / legal blood draw, while in the ED he had a syncopal episode and required Medicine admission then transfer to [facility]): He reports that he had about 2 hospitalizations in the past month. One in [facility] (04/24/2022) for acute toxic encephalopathy, drug overdose (cannabinoids, methamphetamine), and alcohol withdrawal w/ delirium tremens which required large amount of benzo. He says he had another hospitalization in [place]. He reports that one of these hospitalizations [...] as a problem, stating, I don't drive. [employer] noted that he recently missed a court date for aDUI charge and, last hospitalization here, he was brought here for a legal blood draw after being stopped for erratic driving. When asked about the pill bottles that were scattered around him, when found KILN BURNER, he could not give an explanation. Will [...] No overt paranoia. Reported +AH last edil. [facility] is supporting petition for commitment. 07/23: He [...] before him. The pt talked about his yazidi bel iefs, about not believing in suicide, [...] Xanax as effective interventions, but understanding when typewriter assembly and parts inspector offered renal concerns with diclofenac and habit-forming [...] and would appreciate increase in amitriptyline which typewriter assembly and parts inspector agreed to. 08/02: Pt calm, cooperative and [...] and use andthe resulting consequences. Referral to [place]. Speech is hyper- verbal / over-inclusive and somewhat pressured. He is less restless. No overt paranoia. 08/10: Good participation in OT groups. Overnight sleep was better than usual. (Nearly 8h documented.) He is hopeful for YASMEEN tx at [facility]. Per his usual, seemingly in hopes of [...] symptoms. 07/19: Increase quetiapine to 100mg TID. KILN BURNER dose was 800mg qHS. UDS+ for amphetamines. 07/20: Will give Seroquel 200mg at bedtime this edil then combine doses / change dose to 400mg po qhs. Will titrate to KILN BURNER dose of 800mg po qhs as tolerated / indicated. Hold Lexapro for now. He has not been consistently taking it. Increase Neurontin to 600mg po TID. Offer Zyprexa 10mg po BID PRN. Continue CIWA protocol w PRN Valium and PRN Clonidine. 07/21: Lidocaine patch daily. Medicine consult if [facility] is issued. 07/22: Medicine consult for chronic back pain management. Increase Seroquel to 500mg po qhs. D/c PRNMelatonin and replace w PRN Benadryl. 07/23: Increase Seroquel to 600mg po qhs. Per his request, change Flexeril 10mg from TID PRN to TID.Will avoid Requip for RLS as it could worsen his [place] sxs. Instead, will increase Neurontin to 900mg po TID. Spiritual care consult ordered. 07/24: Advance Seroquel to 700mg po qhs. Add Trazodone 50mg po qhs + 50mg po qhs PRN. Changed Benadryl to PRN itching only as this could worsen RLS, if that is truly what he has. Will discuss the possibility of akathisia (vs RLS) tomorrow. 07/25: Increase Seroquel to his KILN BURNER dose of 800mg po qhs. Add a [...] Galo RN - 08/12/2023 11:35 AM CDT [facility] Plan of Care Note Assessment: [facility] Plan of Care Note Assessment: Altered thought [...] Rutledge PA-C - 08/11/2023 2:17 PM CDT [facility] Psychiatry Progress Note PATIENT NAME: Nicanor Alvarado DATE OF SERVICE: 08/11/2023 ATTENDING PRACTITIONER: Kristin Rutledge PA-C HOSPITAL DAY # 22 CHIEF COMPLAINT subsequent inpatient psychiatric encounter INTERVAL HISTORY Nicanor Alvarado was seen in f/u by typewriter assembly and parts inspector, , and ORAL SURGERY TECHNICIAN-fellow. He was found participating in OT group. 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 He said his overnight sleep was better than usual, although he woke and requested / received a PRN. We did troubleshooting around his loosening bridge work. He plans to work on making an appointment w his dentist. He discussed his past experience at [facility]. He liked their program aside from wishing they offered more one on one therapy, which he plans to pursue after d/c. He said he also needs to call the marketing team lead about my DUI, althoughyesterday he said he [...] Attention: intact Insight: poor Judgment: poor CONSULTATION [facility] MEDICINE, 07/24/23: Assessment / Recommendations Follow up [...] do not believe this is 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 Aubrey will sign off. Please reach out with [...] male who has been admitted to station [facility] for AH, paranoia, substance withdrawal, and possible [...] his room over the weekend. Admitted to [facility]: 07/20: Restless on exam. Reported +AH and +paranoia (under investigation - which he is starting toquestion as the truth). Less disorganized as compared to when on Medicine. He said he was not really sure about the events KILN BURNER. He drinks alcohol heavily, nearly 3L of [place] rum per week. He has been prescribed Lexapro, but he is not consistent w taking it. Sometimes I need more, referring to self medicating. He used methamphetamine KILN BURNER. He said he has +AH at his [...] denied having SI and he denied the KILN BURNER event asa SA. 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 When initially in the ED, he reported +SI (also while on Medicine) and, when questioned about ingestion, he replied w not enough. Per chart review from the 05/2023 Medicine admission (admitted for erratic driving / legal blood draw, while in the ED he had a syncopal episode and required Medicine admission then transfer to [facility]): He reports that he had about 2 hospitalizations in the past month. One in [facility] (04/24/2022) for acute toxic encephalopathy, drug overdose (cannabinoids, methamphetamine), and alcohol withdrawal w/ delirium tremens which required large amount of benzo. He says he had another hospitalization in [place]. He reports that one of these hospitalizations [...] as a problem, stating, I don't drive. [employer] Floor noted that he recently missed a court date for aDUI charge and, last hospitalization here, he was brought here for a legal blood draw after being stopped for erratic driving. When asked about the pill bottles that were scattered around him, when found KILN BURNER, he could not give an explanation. Will [...] No overt paranoia. Reported +AH last edil. [facility] is supporting petition for commitment. 07/23: He [...] before him. The pt talked about his yazidi bel iefs, about not believing in suicide, [...] Xanax as effective interventions, but understanding when typewriter assembly and parts inspector offered renal concerns with diclofenac and habit-forming [...] and would appreciate increase in amitriptyline which typewriter assembly and parts inspector agreed to. 08/02: Pt calm, cooperative and [...] and use andthe resulting consequences. Referral to [place]. Speech is hyper- verbal / over-inclusive and somewhat pressured. He is less restless. No overt paranoia. 08/10: Good participation in OT groups. Overnight sleep was better than usual. (Nearly 8h documented.) He is hopeful for YASMEEN tx at [place]. Per his usual, seemingly in hopes of [...] Medicine / Pain consult - HTN: restarted KILN BURNER medications - GERD: restarted PPI - HLD: [...] symptoms. 07/19: Increase quetiapine to 100mg TID. KILN BURNER dose was 800mg qHS. UDS+ for amphetamines. 07/20: Will give Seroquel 200mg at bedtime this edil then combine doses / change dose to 400mg po qhs. Will titrate to KILN BURNER dose of 800mg po qhs as tolerated / indicated. Hold Lexapro for now. He has not been consistently taking it. Increase Neurontin to 600mg po TID. Offer Zyprexa 10mg po BID PRN. Continue CIWA protocol w PRN Valium and PRN Clonidine. 07/21: Lidocaine patch daily. Medicine consult if [facility] is issued. 07/22: Medicine consult for chronic back pain management. Increase Seroquel to 500mg po qhs. D/c PRNMelatonin and replace w PRN Benadryl. 07/23: Increase Seroquel to 600mg po qhs. Per his request, change Flexeril 10mg from TID PRN to TID.Will avoid Requip for RLS as it could worsen his [place] sxs. Instead, will increase Neurontin to 900mg po TID. Spiritual care consult ordered. 07/24: Advance Seroquel to 700mg po qhs. Add Trazodone 50mg po qhs + 50mg po qhs PRN. Changed Benadryl to PRN itching only as this could worsen RLS, if that is truly what he has. Will discuss the possibility of akathisia (vs RLS) tomorrow. 07/25: Increase Seroquel to his KILN BURNER dose of 800mg po qhs. Add a [...] Rutledge PA-C - 08/10/2023 2:54 PM CDT [facility] Psychiatry Progress Note PATIENT NAME: Nicanor Alvarado DATE OF SERVICE: 08/10/2023 ATTENDING PRACTITIONER: Kristin Rutledge PA-C HOSPITAL DAY # 21 CHIEF COMPLAINT subsequent inpatient psychiatric encounter INTERVAL HISTORY Nicanor Alvarado was seen in f/u by MD honey, and ORAL SURGERY TECHNICIAN-fellow. The pt began with a recap of the past 2 weeks (typewriter assembly and parts inspector was off service). He began with, I'm [...] Attention: intact Insight: poor Judgment: poor CONSULTATION [facility] MEDICINE, 07/24/23: Assessment / Recommendations Follow up [...] do not believe this is the best fci medication for this patient for pain control [...] perhaps even intraarticular injections for shoulder/hip/back pain. Aubrey will sign off. Please reach out with [...] male who has been admitted to station [facility] for AH, paranoia, substance withdrawal, and possible [...] his room over the weekend. Admitted to [facility]: 07/20: Restless on exam. Reported +AH and +paranoia (under investigation - which he is starting toquestion as the truth). Less disorganized as compared to when on Medicine. He said he was not really sure about the events KILN BURNER. He drinks alcohol heavily, nearly 3L of [place] rum per week. He has been prescribed Lexapro, but he is not consistent w taking it. Sometimes I need more, referring to self medicating. He used methamphetamine KILN BURNER. He said he has +AH at his [...] denied having SI and he denied the KILN BURNER event asa SA. 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 When initially in the ED, he reported +SI (also while on Medicine) and, when questioned about ingestion, he replied w not enough. Per chart review from the 05/2023 Medicine admission (admitted for erratic driving / legal blood draw, while in the ED he had a syncopal episode and required Medicine admission then transfer to [facility]): He reports that he had about 2 hospitalizations in the past month. One in [facility] (04/24/2022) for acute toxic encephalopathy, drug overdose (cannabinoids, methamphetamine), and alcohol withdrawal w/ delirium tremens which required large amount of benzo. He says he had another hospitalization in [place]. He reports that one of these hospitalizations [...] as a problem, stating, I don't drive. [employer] Floor noted that he recently missed a court date for aDUI charge and, last hospitalization here, he was brought here for a legal blood draw after being stopped for erratic driving. When asked about the pill bottles that were scattered around him, when found KILN BURNER, he could not give an explanation. Will [...] No overt paranoia. Reported +AH last edil. [facility] is supporting petition for commitment. 07/23: He [...] before him. The pt talked about his yazidi bel iefs, about not believing in suicide, [...] Xanax as effective interventions, but understanding when typewriter assembly and parts inspector offered renal concerns with diclofenac and habit-forming [...] and would appreciate increase in amitriptyline which typewriter assembly and parts inspector agreed to. 08/02: Pt calm, cooperative and [...] and use andthe resulting consequences. Referral to [place]. Speech is hyper- verbal / over-inclusive and [...] Medicine / Pain consult - HTN: restarted KILN BURNER medications - GERD: restarted PPI - HLD: [...] symptoms. 07/19: Increase quetiapine to 100mg TID. KILN BURNER dose was 800mg qHS. UDS+ for amphetamines. 07/20: Will give Seroquel 200mg at bedtime this edil then combine doses / change dose to 400mg po qhs. Will titrate to KILN BURNER dose of 800mg po qhs as tolerated / indicated. Hold Lexapro for now. He has not been consistently taking it. Increase Neurontin to 600mg po TID. Offer Zyprexa 10mg po BID PRN. Continue CIWA protocol w PRN Valium and PRN Clonidine. 07/21: Lidocaine patch daily. Medicine consult if [facility] is issued. 07/22: Medicine consult for chronic back pain management. Increase Seroquel to 500mg po qhs. D/c PRNMelatonin and replace w PRN Benadryl. 07/23: Increase Seroquel to 600mg po qhs. Per his request, change Flexeril 10mg from TID PRN to TID.Will avoid Requip for RLS as it could worsen his [place] sxs. Instead, will increase Neurontin to 900mg po TID. Spiritual care consult ordered. 07/24: Advance Seroquel to 700mg po qhs. Add Trazodone 50mg po qhs + 50mg po qhs PRN. Changed Benadryl to PRN itching only as this could worsen RLS, if that is truly what he has. Will discuss the possibility of akathisia (vs RLS) tomorrow. 07/25: Increase Seroquel to his KILN BURNER dose of 800mg po qhs. Add a [...] Addiction Medicine Progress Note This visit was [id number] Date of service: 08/09/2023 SUBJECTIVE: Patient last [...] APRN, CNP - 08/09/2023 8:22 AM CDT [facility] Psychiatry Progress Note PATIENT NAME: Nicanor Alvarado DATE OF SERVICE: 08/09/2023 ATTENDING PRACTITIONER: Charlene Lee APRN, CNP HOSPITAL DAY # 20 CHIEF COMPLAINT subsequent inpatient psychiatric encounter INTERVAL HISTORY Nicanor Alvarado was seen along with the ORAL SURGERY TECHNICIAN-fellow. 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 Admitted to [facility]: 07/20: Restless on exam. Reported +AH and +paranoia (under investigation - which he is starting toquestion as the truth). Less disorganized as compared to when on Medicine. He said he was not really sure about the events KILN BURNER. He drinks alcohol heavily, nearly 3L of [place] rum per week. He has been prescribed Lexapro, but he is not consistent w taking it. Sometimes I need more, referring to self medicating. He used methamphetamine KILN BURNER. He said he has +AH at his [...] denied having SI and he denied the KILN BURNER event asa SA. 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 When initially in the ED, he reported +SI (also while on Medicine) and, when questioned about ingestion, he replied w not enough. Per chart review from the 05/2023 Medicine admission (admitted for erratic driving / legal blood draw, while in the ED he had a syncopal episode and required Medicine admission then transfer to [facility]): He reports that he had about 2 hospitalizations in the past month. One in [facility] (04/24/2022) for acute toxic encephalopathy, drug overdose (cannabinoids, methamphetamine), and alcohol withdrawal w/ delirium tremens which required large amount of benzo. He says he had another hospitalization in [place]. He reports that one of these hospitalizations [...] as a problem, stating, I don't drive. [employer] Floor noted that he recently missed a court date for aDUI charge and, last hospitalization here, he was brought here for a legal blood draw after being stopped for erratic driving. When asked about the pill bottles that were scattered around him, when found KILN BURNER, he could not give an explanation. Will [...] No overt paranoia. Reported +AH last edil. [facility] is supporting petition for commitment. 07/23: He [...] before him. The pt talked about his yazidi bel iefs, about not believing in suicide, [...] Xanax as effective interventions, but understanding when typewriter assembly and parts inspector offered renal concerns with diclofenac and habit-forming [...] and would appreciate increase in amitriptyline which typewriter assembly and parts inspector agreed to. 08/02: Pt calm, cooperative and [...] pain: see Medicine consult - HTN: restarted KILN BURNER medications - GERD: restarted PPI - HLD: [...] symptoms. 07/19: Increase quetiapine to 100mg TID. KILN BURNER dose was 800mg qHS. UDS+ for amphetamines. 07/20: Will give Seroquel 200mg at bedtime this edil then combine doses / change dose to 400mg po qhs. Will titrate to KILN BURNER dose of 800mg po qhs as tolerated / indicated. Hold Lexapro for now. He has not been consistently taking it. Increase Neurontin to 600mg po TID. Offer Zyprexa 10mg po BID PRN. Continue CIWA protocol w PRN Valium and PRN Clonidine. 07/21: Lidocaine patch daily. Medicine consult if [facility] is issued. 07/22: Medicine consult for chronic back pain management. Increase Seroquel to 500mg po qhs. D/c PRNMelatonin and replace w PRN Benadryl. 07/23: Increase Seroquel to 600mg po qhs. Per his request, change Flexeril 10mg from TID PRN to TID.Will avoid Requip for RLS as it could worsen his [place] sxs. Instead, will increase Neurontin to 900mg po TID. Spiritual care consult ordered. 07/24: Advance Seroquel to 700mg po qhs. Add Trazodone 50mg po qhs + 50mg po qhs PRN. Changed Benadryl to PRN itching only as this could worsen RLS, if that is truly what he has. Will discuss the possibility of akathisia (vs RLS) tomorrow. 07/25: Increase Seroquel to his KILN BURNER dose of 800mg po qhs. Add a [...] is 14 days. Anticipated disposition: home vs alf vs YASMEEN tx Risk Assessment: assault: Medium - paranoid Suicide Risk: Low Patient Strengths: willing to take medications Patient was additionally evaluated in person by Dr. Hatch, who agrees with the above documentation and plan. 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 He is currently on [...] Memory: impaired Insight: limited Judgment: poor CONSULTATION [facility] MEDICINE, 07/24/23: Assessment / Recommendations Follow up [...] do not believe this is 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 Aubrey will sign off. Please reach out with [...] male who has been admitted to station [facility] for AH, paranoia, substance withdrawal, and possible [...] his room over the weekend. Admitted to [facility]: 07/20: Restless on exam. Reported +AH and +paranoia (under investigation - which he is starting toquestion as the truth). Less disorganized as compared to when on Medicine. He said he was not really sure about the events KILN BURNER. He drinks alcohol heavily, nearly 3L of [place] rum per week. He has been prescribed Lexapro, but he is not consistent w taking it. Sometimes I need more, referring to self medicating. He used methamphetamine KILN BURNER. He said he has +AH at his [...] denied having SI and he denied the KILN BURNER event asa SA. 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 When initially in the ED, he reported +SI (also while on Medicine) and, when questioned about ingestion, he replied w not enough. Per chart review from the 05/2023 Medicine admission (admitted for erratic driving / legal blood draw, while in the ED he had a syncopal episode and required Medicine admission then transfer to [facility]): He reports that he had about 2 hospitalizations in the past month. One in [facility] (04/24/2022) for acute toxic encephalopathy, drug overdose (cannabinoids, methamphetamine), and alcohol withdrawal w/ delirium tremens which required large amount of benzo. He says he had another hospitalization in [place]. He reports that one of these hospitalizations [...] as a problem, stating, I don't drive. [employer] Floor noted that he recently missed a court date for aDUI charge and, last hospitalization here, he was brought here for a legal blood draw after being stopped for erratic driving. When asked about the pill bottles that were scattered around him, when found KILN BURNER, he could not give an explanation. Will [...] No overt paranoia. Reported +AH last edil. [facility] is supporting petition for commitment. 07/23: He [...] before him. The pt talked about his yazidi bel iefs, about not believing in suicide, [...] Xanax as effective interventions, but understanding when typewriter assembly and parts inspector offered renal concerns with diclofenac and habit-forming [...] and would appreciate increase in amitriptyline which typewriter assembly and parts inspector agreed to. 08/02: Pt calm, cooperative and [...] pain: see Medicine consult - HTN: restarted KILN BURNER medications - GERD: restarted PPI - HLD: [...] symptoms. 07/19: Increase quetiapine to 100mg TID. KILN BURNER dose was 800mg qHS. UDS+ for amphetamines. 07/20: Will give Seroquel 200mg at bedtime this edil then combine doses / change dose to 400mg po qhs. Will titrate to KILN BURNER dose of 800mg po qhs as tolerated / indicated. Hold Lexapro for now. He has not been consistently taking it. Increase Neurontin to 600mg po TID. Offer Zyprexa 10mg po BID PRN. Continue CIWA protocol w PRN Valium and PRN Clonidine. 07/21: Lidocaine patch daily. Medicine consult if [facility] is issued. 07/22: Medicine consult for chronic back pain management. Increase Seroquel to 500mg po qhs. D/c PRNMelatonin and replace w PRN Benadryl. 07/23: Increase Seroquel to 600mg po qhs. Per his request, change Flexeril 10mg from TID PRN to TID.Will avoid Requip for RLS as it could worsen his [place] sxs. Instead, will increase Neurontin to 900mg po TID. Spiritual care consult ordered. 07/24: Advance Seroquel to 700mg po qhs. Add Trazodone 50mg po qhs + 50mg po qhs PRN. Changed Benadryl to PRN itching only as this could worsen RLS, if that is truly what he has. Will discuss the possibility of akathisia (vs RLS) tomorrow. 07/25: Increase Seroquel to his KILN BURNER dose of 800mg po qhs. Add a [...] is 14 days. Anticipated disposition: home vs alf vs Y[facility] tx Risk Assessment: assault: Medium [...] APRN, CNP - 08/07/2023 8:24 AM CDT [facility] Psychiatry Progress Note PATIENT NAME: Nicanor Alvarado [...] some money. He also met with a ambulance paramedic yesterday who give him a pendant he plan to add it to a necklace. He did confession with the lime supervisor and that's something he has not done [...] will not use [facility]anax when [facility] 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 Admitted to [facility]: 07/20: Restless on exam. Reported +AH and +paranoia (under investigation - which he is starting toquestion as the truth). Less disorganized as compared to when on Medicine. He said he was not really sure about the events KILN BURNER. He drinks alcohol heavily, nearly 3L of [place] rum per week. He has been prescribed Lexapro, but he is not consistent w taking it. Sometimes I need more, referring to self medicating. He used methamphetamine KILN BURNER. He said he has +AH at his [...] denied having SI and he denied the KILN BURNER event asa SA. 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 When initially in the ED, he reported +SI (also while on Medicine) and, when questioned about ingestion, he replied w not enough. Per chart review from the 05/2023 Medicine admission (admitted for erratic driving / legal blood draw, while in the ED he had a syncopal episode and required Medicine admission then transfer to [facility]): He reports that he had about 2 hospitalizations in the past month. One in [facility] (04/24/2022) for acute toxic encephalopathy, drug overdose (cannabinoids, methamphetamine), and alcohol withdrawal w/ delirium tremens which required large amount of benzo. He says he had another hospitalization in [place]. He reports that one of these hospitalizations [...] as a problem, stating, I don't drive. Coremaker Floor noted that he recently missed a court date for aDUI charge and, last hospitalization here, he was brought here for a legal blood draw after being stopped for erratic driving. When asked about the pill bottles that were scattered around him, when found KILN BURNER, he could not give an explanation. Will [...] No overt paranoia. Reported +AH last edil. [facility] is supporting petition for commitment. 07/23: He [...] before him. The pt talked about his yazidi bel iefs, about not believing in suicide, [...] Xanax as effective interventions, but understanding when typewriter assembly and parts inspector offered renal concerns with diclofenac and habit-forming [...] and would appreciate increase in amitriptyline which typewriter assembly and parts inspector agreed to. 08/02: Pt calm, cooperative and [...] pain: see Medicine consult - HTN: restarted KILN BURNER medications - GERD: restarted PPI - HLD: [...] symptoms. 07/19: Increase quetiapine to 100mg TID. KILN BURNER dose was 800mg qHS. UDS+ for amphetamines. 07/20: Will give Seroquel 200mg at bedtime this edil then combine doses / change dose to 400mg po qhs. Will titrate to KILN BURNER dose of 800mg po qhs as tolerated / indicated. Hold Lexapro for now. He has not been consistently taking it. Increase Neurontin to 600mg po TID. Offer Zyprexa 10mg po BID PRN. Continue CIWA protocol w PRN Valium and PRN Clonidine. 07/21: Lidocaine patch daily. Medicine consult if [facility] is issued. 07/22: Medicine consult for chronic back pain management. Increase Seroquel to 500mg po qhs. D/c PRNMelatonin and replace w PRN Benadryl. 07/23: Increase Seroquel to 600mg po qhs. Per his request, change Flexeril 10mg from TID PRN to TID.Will avoid Requip for RLS as it could worsen his [place] sxs. Instead, will increase Neurontin to 900mg po TID. Spiritual care consult ordered. 07/24: Advance Seroquel to 700mg po qhs. Add Trazodone 50mg po qhs + 50mg po qhs PRN. Changed Benadryl to PRN itching only as this could worsen RLS, if that is truly what he has. Will discuss the possibility of akathisia (vs RLS) tomorrow. 07/25: Increase Seroquel to his KILN BURNER dose of 800mg po qhs. Add a [...] is 14 days. Anticipated disposition: home vs alf vs Y[facility] tx Risk Assessment: assault: Medium [...] APRN, CNP - 08/06/2023 8:23 AM CDT [facility] Psychiatry Progress Note PATIENT NAME: Nicanor Alvarado DATE OF SERVICE: 08/06/2023 ATTENDING PRACTITIONER: Charlene Lee APRN, CNP HOSPITAL DAY # 17 CHIEF COMPLAINT subsequent inpatient psychiatric encounter INTERVAL HISTORY Nicanor Alvarado was seen along with ORAL SURGERY TECHNICIAN-fellow. Reports he had a relatively good [...] when he discharges to help him sleep. Coremaker Floor told him that it's addictive and not [...] do not believe this is the best fci medication for this patient for pain control [...] male who has been admitted to station [facility] for AH, paranoia, substance withdrawal, and possible [...] was not really sure about the events KILN BURNER. He drinks alcohol heavily, nearly 3L of [place] rum per week. He has been prescribed Lexapro, but he is not consistent w taking it. Sometimes I need more, referring to self medicating. He used methamphetamine KILN BURNER. He said he has +AH at his [...] denied having SI and he denied the KILN BURNER event asa SA. 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 When initially in the ED, he reported +SI (also while on Medicine) and, when questioned about ingestion, he replied w not enough. Per chart review from the 05/2023 Medicine admission (admitted for erratic driving / legal blood draw, while in the ED he had a syncopal episode and required Medicine admission then transfer to [facility]): He reports that he had about 2 hospitalizations in the past month. One in [facility] (04/24/2022) for acute toxic encephalopathy, drug overdose (cannabinoids, methamphetamine), and alcohol withdrawal w/ delirium tremens which required large amount of benzo. He says he had another hospitalization in [place]. He reports that one of these hospitalizations [...] as a problem, stating, I don't drive. [employer] Floor noted that he recently missed a court date for aDUI charge and, last hospitalization here, he was brought here for a legal blood draw after being stopped for erratic driving. When asked about the pill bottles that were scattered around him, when found KILN BURNER, he could not give an explanation. Will [...] No overt paranoia. Reported +AH last edil. [facility] is supporting petition for commitment. 07/23: He [...] before him. The pt talked about his yazidi bel iefs, about not believing in suicide, [...] Xanax as effective interventions, but understanding when typewriter assembly and parts inspector offered renal concerns with diclofenac and habit-forming [...] and would appreciate increase in amitriptyline which typewriter assembly and parts inspector agreed to. 08/02: Pt calm, cooperative and [...] pain: see Medicine consult - HTN: restarted KILN BURNER medications - GERD: restarted PPI - HLD: [...] symptoms. 07/19: Increase quetiapine to 100mg TID. KILN BURNER dose was 800mg qHS. UDS+ for amphetamines. 07/20: Will give Seroquel 200mg at bedtime this edil then combine doses / change dose to 400mg po qhs. Will titrate to KILN BURNER dose of 800mg po qhs as tolerated / indicated. Hold Lexapro for now. He has not been consistently taking it. Increase Neurontin to 600mg po TID. Offer Zyprexa 10mg po BID PRN. Continue CIWA protocol w PRN Valium and PRN Clonidine. 07/21: Lidocaine patch daily. Medicine consult if [facility] is issued. 07/22: Medicine consult for chronic back pain management. Increase Seroquel to 500mg po qhs. D/c PRNMelatonin and replace w PRN Benadryl. 07/23: Increase Seroquel to 600mg po qhs. Per his request, change Flexeril 10mg from TID PRN to TID.Will avoid Requip for RLS as it could worsen his [place] sxs. Instead, will increase Neurontin to 900mg po TID. Spiritual care consult ordered. 07/24: Advance Seroquel to 700mg po qhs. Add Trazodone 50mg po qhs + 50mg po qhs PRN. Changed Benadryl to PRN itching only as this could worsen RLS, if that is truly what he has. Will discuss the possibility of akathisia (vs RLS) tomorrow. 07/25: Increase Seroquel to his KILN BURNER dose of 800mg po qhs. Add a [...] is 14 days. Anticipated disposition: home vs alf vs [facility] tx Risk Assessment: assault: Medium - paranoid Suicide Risk: Low Patient Strengths: willing to take medications Charlene Lee APRN, CNP * Charlene Lee APRN, CNP - 08/05/2023 8:24 AM CDT [facility] Psychiatry Progress Note PATIENT NAME: Nicanor Alvarado DATE OF SERVICE: 08/05/2023 ATTENDING PRACTITIONER: Charlene Lee APRN, CNP HOSPITAL DAY # 16 CHIEF COMPLAINT subsequent inpatient psychiatric encounter INTERVAL HISTORY Nicanor Alvarado was seen along with the ORAL SURGERY TECHNICIAN-fellow. Pt was seen after his court [...] Memory: impaired Insight: poor Judgment: poor CONSULTATION [facility] MEDICINE, 07/24/23: Assessment / Recommendations Follow up [...] do not believe this is the best fci medication for this patient for pain control [...] his room over the weekend. Admitted to [facility]: 07/20: Restless on exam. Reported +AH and +paranoia (under investigation - which he is starting toquestion as the truth). Less disorganized as compared to when on Medicine. He said he was not really sure about the events KILN BURNER. He drinks alcohol heavily, nearly 3L of [employer]'s rum per week. He has been prescribed Lexapro, but he is not consistent w taking it. Sometimes I need more, referring to self medicating. He used methamphetamine KILN BURNER. He said he has +AH at his [...] denied having SI and he denied the KILN BURNER event asa SA. 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 When initially in the ED, he reported +SI (also while on Medicine) and, when questioned about ingestion, he replied w not enough. Per chart review from the 05/2023 Medicine admission (admitted for erratic driving / legal blood draw, while in the ED he had a syncopal episode and required Medicine admission then transfer to [facility]): He reports that he had about 2 hospitalizations in the past month. One in [facility] (04/24/2022) for acute toxic encephalopathy, drug overdose (cannabinoids, methamphetamine), and alcohol withdrawal w/ delirium tremens which required large amount of benzo. He says he had another hospitalization in [place]. He reports that one of these hospitalizations [...] as a problem, stating, I don't drive. [employer] noted that he recently missed a court date for aDUI charge and, last hospitalization here, he was brought here for a legal blood draw after being stopped for erratic driving. When asked about the pill bottles that were scattered around him, when found KILN BURNER, he could not give an explanation. Will [...] No overt paranoia. Reported +AH last edil. [facility] is supporting petition for commitment. 07/23: He [...] before him. The pt talked about his yazidi bel iefs, about not believing in suicide, [...] Xanax as effective interventions, but understanding when typewriter assembly and parts inspector offered renal concerns with diclofenac and habit-forming [...] and would appreciate increase in amitriptyline which typewriter assembly and parts inspector agreed to. 08/02: Pt calm, cooperative and [...] pain: see Medicine consult - HTN: restarted KILN BURNER medications - GERD: restarted PPI - HLD: [...] symptoms. 07/19: Increase quetiapine to 100mg TID. KILN BURNER dose was 800mg qHS. UDS+ for amphetamines. 07/20: Will give Seroquel 200mg at bedtime this edil then combine doses / change dose to 400mg po qhs. Will titrate to KILN BURNER dose of 800mg po qhs as tolerated / indicated. Hold Lexapro for now. He has not been consistently taking it. Increase Neurontin to 600mg po TID. Offer Zyprexa 10mg po BID PRN. Continue CIWA protocol w PRN Valium and PRN Clonidine. 07/21: Lidocaine patch daily. Medicine consult if [facility] is issued. 07/22: Medicine consult for chronic back pain management. Increase Seroquel to 500mg po qhs. D/c PRNMelatonin and replace w PRN Benadryl. 07/23: Increase Seroquel to 600mg po qhs. Per his request, change Flexeril 10mg from TID PRN to TID.Will avoid Requip for RLS as it could worsen his [place] sxs. Instead, will increase Neurontin to 900mg po TID. Spiritual care consult ordered. 07/24: Advance Seroquel to 700mg po qhs. Add Trazodone 50mg po qhs + 50mg po qhs PRN. Changed Benadryl to PRN itching only as this could worsen RLS, if that is truly what he has. Will discuss the possibility of akathisia (vs RLS) tomorrow. 07/25: Increase Seroquel to his KILN BURNER dose of 800mg po qhs. Add a [...] Milieu Management: Admit to: NE4 Legal: >> [facility] (prelim 07/29) Acuity level: Red (caution - [...] is 14 days. Anticipated disposition: home vs alf vs [facility] tx Risk Assessment: assault: Medium - paranoid Suicide Risk: Low Patient Strengths: willing to take medications Charlene Lee APRN, CNP * Charlene Lee APRN, CNP - 08/04/2023 8:25 AM CDT [facility] Psychiatry Progress Note PATIENT NAME: Nicanor Alvarado DATE OF SERVICE: 08/04/2023 ATTENDING PRACTITIONER: Charlene Lee APRN, CNP HOSPITAL DAY # 15 CHIEF COMPLAINT subsequent inpatient psychiatric encounter INTERVAL HISTORY Nicanor Alvarado alongside ORAL SURGERY TECHNICIAN fellow and psychiatrist. Pt reports he [...] he was found with opened pill bottles. [employer] informed pt that his record can not [...] Memory: impaired Insight: poor Judgment: poor CONSULTATION [facility] MEDICINE, 07/24/23: Assessment / Recommendations Follow up on labs show creat 0.96, returned to normal range and resolved USAMA. K is 5.1 but sample hemolyzed. [facility] consulted on 07/23/23 because of chronic [...] do not believe this is 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 [facility] will sign off. Please reach out [...] male who has been admitted to station [facility] for AH, paranoia, substance withdrawal, and possible [...] his room over the weekend. Admitted to [facility]: 07/20: Restless on exam. Reported +AH and +paranoia (under investigation - which he is starting toquestion as the truth). Less disorganized as compared to when on Medicine. He said he was not really sure about the events KILN BURNER. He drinks alcohol heavily, nearly 3L of [place] [employer] rum per week. He has been prescribed Lexapro, but he is not consistent w taking it. Sometimes I need more, referring to self medicating. He used methamphetamine KILN BURNER. He said he has +AH at his [...] denied having SI and he denied the KILN BURNER event asa SA. 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 When initially in the ED, he reported +SI (also while on Medicine) and, when questioned about ingestion, he replied w not enough. Per chart review from the 05/2023 Medicine admission (admitted for erratic driving / legal blood draw, while in the ED he had a syncopal episode and required Medicine admission then transfer to [facility]): He reports that he had about 2 hospitalizations in the past month. One in [facility] (04/24/2022) for acute toxic encephalopathy, drug overdose (cannabinoids, methamphetamine), and alcohol withdrawal w/ delirium tremens which required large amount of benzo. He says he had another hospitalization in [place]. He reports that one of these hospitalizations [...] as a problem, stating, I don't drive. [employer] noted that he recently missed a court date for aDUI charge and, last hospitalization here, he was brought here for a legal blood draw after being stopped for erratic driving. When asked about the pill bottles that were scattered around him, when found KILN BURNER, he could not give an explanation. Will [...] No overt paranoia. Reported +AH last edil. [facility] is supporting petition for commitment. 07/23: He [...] before him. The pt talked about his yazidi bel iefs, about not believing in suicide, [...] Xanax as effective interventions, but understanding when typewriter assembly and parts inspector offered renal concerns with diclofenac and habit-forming [...] and would appreciate increase in amitriptyline which typewriter assembly and parts inspector agreed to. 08/02: Pt calm, cooperative and [...] pain: see Medicine consult - HTN: restarted KILN BURNER medications - GERD: restarted PPI - HLD: [...] symptoms. 07/19: Increase quetiapine to 100mg TID. KILN BURNER dose was 800mg qHS. UDS+ for amphetamines. 07/20: Will give Seroquel 200mg at bedtime this edil then combine doses / change dose to 400mg po qhs. Will titrate to KILN BURNER dose of 800mg po qhs as tolerated / indicated. Hold Lexapro for now. He has not been consistently taking it. Increase Neurontin to 600mg po TID. Offer Zyprexa 10mg po BID PRN. Continue CIWA protocol w PRN Valium and PRN Clonidine. 07/21: Lidocaine patch daily. Medicine consult if [facility] is issued. 07/22: Medicine consult for chronic back pain management. Increase Seroquel to 500mg po qhs. D/c PRNMelatonin and replace w PRN Benadryl. 07/23: Increase Seroquel to 600mg po qhs. Per his request, change Flexeril 10mg from TID PRN to TID.Will avoid Requip for RLS as it could worsen his [place] sxs. Instead, will increase Neurontin to 900mg po TID. Spiritual care consult ordered. 07/24: Advance Seroquel to 700mg po qhs. Add Trazodone 50mg po qhs + 50mg po qhs PRN. Changed Benadryl to PRN itching only as this could worsen RLS, if that is truly what he has. Will discuss the possibility of akathisia (vs RLS) tomorrow. 07/25: Increase Seroquel to his KILN BURNER dose of 800mg po qhs. Add a [...] Milieu Management: Admit to: NE4 Legal: >> [facility] (prelim 07/29) Acuity level: Red (caution - [...] is 14 days. Anticipated disposition: home vs alf vs [facility] tx Risk Assessment: assault: Medium [...] APRN, CNP - 08/03/2023 8:54 AM CDT [facility] Psychiatry Progress Note PATIENT NAME: Nicanor Alvarado DATE OF SERVICE: 08/03/2023 ATTENDING PRACTITIONER: Charlene Lee APRN, CNP HOSPITAL DAY # 14 CHIEF COMPLAINT subsequent inpatient psychiatric encounter INTERVAL HISTORY Nicanor Alvarado was seen in the dinning room alongside ORAL SURGERY TECHNICIAN-resident. Pt states he is stressed. He [...] Denied SI, HI, AH, VH. Patient told typewriter assembly and parts inspector about the various surgeries and injuries he has had in his life. Coremaker Floor asked if these injuries were in the [...] do not believe this is the best intermediate school teacher medication for this patient for pain control [...] male who has been admitted to station [facility] for AH, paranoia, substance withdrawal, and possible [...] his room over the weekend. Admitted to CT4: 07/20: Restless on exam. Reported +AH and +paranoia (under investigation - which he is starting toquestion as the truth). Less disorganized as compared to when on Medicine. He said he was not really sure about the events KILN BURNER. He drinks alcohol heavily, nearly 3L of [employer] rum per week. He has been prescribed Lexapro, but he is not consistent w taking it. Sometimes I need more, referring to self medicating. He used methamphetamine KILN BURNER. He said he has +AH at his [...] denied having SI and he denied the KILN BURNER event asa SA. 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 When initially in the ED, he reported +SI (also while on Medicine) and, when questioned about ingestion, he replied w not enough. Per chart review from the 05/2023 Medicine admission (admitted for erratic driving / legal blood draw, while in the ED he had a syncopal episode and required Medicine admission then transfer to [facility]): He reports that he had about 2 hospitalizations in the past month. One in [facility] (04/24/2022) for acute toxic encephalopathy, drug overdose (cannabinoids, methamphetamine), and alcohol withdrawal w/ delirium tremens which required large amount of benzo. He says he had another hospitalization in [place]. He reports that one of these hospitalizations [...] as a problem, stating, I don't drive. [employer] noted that he recently missed a court date for aDUI charge and, last hospitalization here, he was brought here for a legal blood draw after being stopped for erratic driving. When asked about the pill bottles that were scattered around him, when found KILN BURNER, he could not give an explanation. Will [...] No overt paranoia. Reported +AH last edil. [facility] is supporting petition for commitment. 07/23: He [...] before him. The pt talked about his yazidi bel iefs, about not believing in suicide, [...] Xanax as effective interventions, but understanding when typewriter assembly and parts inspector offered renal concerns with diclofenac and habit-forming [...] and would appreciate increase in amitriptyline which typewriter assembly and parts inspector agreed to. 08/02: Pt calm, cooperative and [...] pain: see Medicine consult - HTN: restarted KILN BURNER medications - GERD: restarted PPI - HLD: [...] symptoms. 07/19: Increase quetiapine to 100mg TID. KILN BURNER dose was 800mg qHS. UDS+ for amphetamines. 07/20: Will give Seroquel 200mg at bedtime this edil then combine doses / change dose to 400mg po qhs. Will titrate to KILN BURNER dose of 800mg po qhs as tolerated [...] for RLS as it could worsen his [place] sxs. Instead, will increase Neurontin to 900mg po TID. Spiritual care consult ordered. 07/24: Advance Seroquel to 700mg po qhs. Add Trazodone 50mg po qhs + 50mg po qhs PRN. Changed Benadryl to PRN itching only as this could worsen RLS, if that is truly what he has. Will discuss the possibility of akathisia (vs RLS) tomorrow. 07/25: Increase Seroquel to his KILN BURNER dose of 800mg po qhs. Add a [...] is 14 days. Anticipated disposition: home vs alf vs [facility] tx Risk Assessment: assault: Medium [...] Wetzel PA-C - 08/02/2023 8:37 AM CDT [facility] Psychiatry Progress Note PATIENT NAME: Nicanor Alvarado DATE OF SERVICE: 08/02/2023 ATTENDING PRACTITIONER: Jaden Wetzel PA-C HOSPITAL DAY # 13 CHIEF COMPLAINT subsequent inpatient psychiatric encounter INTERVAL HISTORY Nicanor Alvarado was seen in f/u by typewriter assembly and parts inspector alongside MD, where he agree to interview, [...] you can add on to it, right? [employer] Floor relayed that this discussion would be charted and typewriter assembly and parts inspector would check if labs were performed at [...] neck pain is not bad today. Attended evolso. Behavior controlled. Ate 100% of his dinner. [...] Memory: impaired Insight: poor Judgment: poor CONSULTATION [facility] MEDICINE, 07/24/23: Assessment / Recommendations Follow up [...] do not believe this is 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 [facility] will sign off. Please reach out [...] male who has been admitted to station [facility] for AH, paranoia, substance withdrawal, and possible [...] was not really sure about the events KILN BURNER. He drinks alcohol heavily, nearly 3L of [place] [employer] rum per week. He has been prescribed Lexapro, but he is not consistent w taking it. Sometimes I need more, referring to self medicating. He used methamphetamine KILN BURNER. He said he has +AH at his [...] denied having SI and he denied the KILN BURNER event asa SA. 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 When initially in the ED, he reported +SI (also while on Medicine) and, when questioned about ingestion, he replied w not enough. Per chart review from the 05/2023 Medicine admission (admitted for erratic driving / legal blood draw, while in the ED he had a syncopal episode and required Medicine admission then transfer to [facility]): He reports that he had about 2 hospitalizations in the past month. One in [facility] (04/24/2022) for acute toxic encephalopathy, drug overdose (cannabinoids, methamphetamine), and alcohol withdrawal w/ delirium tremens which required large amount of benzo. He says he had another hospitalization in [place]. He reports that one of these hospitalizations [...] as a problem, stating, I don't drive. [employer] Floor noted that he recently missed a court date for aDUI charge and, last hospitalization here, he was brought here for a legal blood draw after being stopped for erratic driving. When asked about the pill bottles that were scattered around him, when found KILN BURNER, he could not give an explanation. Will [...] No overt paranoia. Reported +AH last edil. [facility] is supporting petition for commitment. 07/23: He [...] before him. The pt talked about his yazidi bel iefs, about not believing in suicide, [...] Xanax as effective interventions, but understanding when typewriter assembly and parts inspector offered renal concerns with diclofenac and habit-forming [...] and would appreciate increase in amitriptyline which typewriter assembly and parts inspector agreed to. DIAGNOSES & PLAN Principal Psychiatric [...] pain: see Medicine consult - HTN: restarted KILN BURNER medications - GERD: restarted PPI - HLD: [...] symptoms. 07/19: Increase quetiapine to 100mg TID. KILN BURNER dose was 800mg qHS. UDS+ for amphetamines. 07/20: Will give Seroquel 200mg at bedtime this edil then combine doses / change dose to 400mg po qhs. Will titrate to KILN BURNER dose of 800mg po qhs as tolerated [...] for RLS as it could worsen his [place] sxs. Instead, will increase Neurontin to 900mg po TID. Spiritual care consult ordered. 07/24: Advance Seroquel to 700mg po qhs. Add Trazodone 50mg po qhs + 50mg po qhs PRN. Changed Benadryl to PRN itching only as this could worsen RLS, if that is truly what he has. Will discuss the possibility of akathisia (vs RLS) tomorrow. 07/25: Increase Seroquel to his KILN BURNER dose of 800mg po qhs. Add a [...] is 14 days. Anticipated disposition: home vs alf vs [facility] tx Risk Assessment: assault: Medium - paranoid Suicide Risk: Low Patient Strengths: willing to take medications Patient was additionally evaluated in person by Dr. Crawley, who agrees with the above documentation and plan. Jaden Wetzel PA-C * Jaden Wetzel PA-C - 08/01/2023 8:31 AM CDT [facility] Psychiatry Progress Note PATIENT NAME: Nicanor Alvarado DATE OF SERVICE: 08/01/2023 ATTENDING PRACTITIONER: Jaden Wetzel PA-C HOSPITAL DAY # 12 CHIEF COMPLAINT subsequent inpatient psychiatric encounter INTERVAL HISTORY Nicanor Alvarado was seen in f/u by typewriter assembly and parts inspector alongside MD, where he agree to interview in dining room. States he needed to have additional Robaxin yesterday overnight and had slightly worse sleep as aresult; otherwise denies concerns, aware that the team would not likely make medication changes based on one poor night of sleep but wanted this to be known. No other concerns endorsed; relayed [facility] information to pt given expressed grieving, [...] do not believe this is the best fci medication for this patient for pain control [...] male who has been admitted to station [facility] for AH, paranoia, substance withdrawal, and possible [...] was not really sure about the events KILN BURNER. He drinks alcohol heavily, nearly 3L of [place] rum per week. He has been prescribed Lexapro, but he is not consistent w taking it. Sometimes I need more, referring to self medicating. He used methamphetamine KILN BURNER. He said he has +AH at his [...] denied having SI and he denied the KILN BURNER event asa SA. 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 When initially in the ED, he reported +SI (also while on Medicine) and, when questioned about ingestion, he replied w not enough. Per chart review from the 05/2023 Medicine admission (admitted for erratic driving / legal blood draw, while in the ED he had a syncopal episode and required Medicine admission then transfer to [facility]): He reports that he had about 2 hospitalizations in the past month. One in [facility] (04/24/2022) for acute toxic encephalopathy, drug overdose (cannabinoids, methamphetamine), and alcohol withdrawal w/ delirium tremens which required large amount of benzo. He says he had another hospitalization in [place]. He reports that one of these hospitalizations [...] as a problem, stating, I don't drive. [employer] noted that he recently missed a court date for aDUI charge and, last hospitalization here, he was brought here for a legal blood draw after being stopped for erratic driving. When asked about the pill bottles that were scattered around him, when found KILN BURNER, he could not give an explanation. Will [...] No overt paranoia. Reported +AH last edil. [facility] is supporting petition for commitment. 07/23: He [...] before him. The pt talked about his yazidi bel iefs, about not believing in suicide, [...] Xanax as effective interventions, but understanding when typewriter assembly and parts inspector offered renal concerns with diclofenac and habit-forming [...] pain: see Medicine consult - HTN: restarted KILN BURNER medications - GERD: restarted PPI - HLD: [...] symptoms. 07/19: Increase quetiapine to 100mg TID. KILN BURNER dose was 800mg qHS. UDS+ for amphetamines. 07/20: Will give Seroquel 200mg at bedtime this edil then combine doses / change dose to 400mg po qhs. Will titrate to KILN BURNER dose of 800mg po qhs as tolerated / indicated. Hold Lexapro for now. He has not been consistently taking it. Increase Neurontin to 600mg po TID. Offer Zyprexa 10mg po BID PRN. Continue CIWA protocol w PRN Valium and PRN Clonidine. 07/21: Lidocaine patch daily. Medicine consult if [facility] is issued. 07/22: Medicine consult for chronic back pain management. Increase Seroquel to 500mg po qhs. D/c PRNMelatonin and replace w PRN Benadryl. 07/23: Increase Seroquel to 600mg po qhs. Per his request, change Flexeril 10mg from TID PRN to TID.Will avoid Requip for RLS as it could worsen his [place] sxs. Instead, will increase Neurontin to 900mg po TID. Spiritual care consult ordered. 07/24: Advance Seroquel to 700mg po qhs. Add Trazodone 50mg po qhs + 50mg po qhs PRN. Changed Benadryl to PRN itching only as this could worsen RLS, if that is truly what he has. Will discuss the possibility of akathisia (vs RLS) tomorrow. 07/25: Increase Seroquel to his KILN BURNER dose of 800mg po qhs. Add a [...] is 14 days. Anticipated disposition: home vs alf vs [facility] tx Risk Assessment: assault: Medium - paranoid Suicide Risk: Low Patient Strengths: willing to take medications Patient was additionally evaluated in person by Dr. Crawley, who agrees with the above documentation and plan. Jaden Wetzel PA-C * Jaden Wetzel PA-C - 07/31/2023 8:46 AM CDT [facility] Psychiatry Progress Note PATIENT NAME: Nicanor Alvarado DATE OF SERVICE: 07/31/2023 ATTENDING PRACTITIONER: Jaden Wetzel PA-C HOSPITAL DAY # 11 CHIEF COMPLAINT subsequent inpatient psychiatric encounter INTERVAL HISTORY Nicanor Alvarado was seen in f/u by typewriter assembly and parts inspector alongside , where he agree to interview in dining room. States he is continuing to sleep well, did not voice concern with Robaxin as in yesterday's interview/to evening staff. Again discussed Benadryl use, possible changes he plans on making outpatient including jew of diclofenac. 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 Admitted to [facility]: 07/20: Restless on exam. Reported +AH and +paranoia (under investigation - which he is starting toquestion as the truth). Less disorganized as compared to when on Medicine. He said he was not really sure about the events KILN BURNER. He drinks alcohol heavily, nearly 3L of [place] Ryan's rum per week. He has been prescribed Lexapro, but he is not consistent w taking it. Sometimes I need more, referring to self medicating. He used methamphetamine KILN BURNER. He said he has +AH at his [...] denied having SI and he denied the KILN BURNER event asa SA. 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 When initially in the ED, he reported +SI (also while on Medicine) and, when questioned about ingestion, he replied w not enough. Per chart review from the 05/2023 Medicine admission (admitted for erratic driving / legal blood draw, while in the ED he had a syncopal episode and required Medicine admission then transfer to [facility]): He reports that he had about 2 hospitalizations in the past month. One in [facility] (04/24/2022) for acute toxic encephalopathy, drug overdose (cannabinoids, methamphetamine), and alcohol withdrawal w/ delirium tremens which required large amount of benzo. He says he had another hospitalization in [place]. He reports that one of these hospitalizations [...] as a problem, stating, I don't drive. [employer] noted that he recently missed a court date for aDUI charge and, last hospitalization here, he was brought here for a legal blood draw after being stopped for erratic driving. When asked about the pill bottles that were scattered around him, when found KILN BURNER, he could not give an explanation. Will [...] No overt paranoia. Reported +AH last edil. [facility] is supporting petition for commitment. 07/23: He [...] before him. The pt talked about his yazidi bel iefs, about not believing in suicide, [...] Xanax as effective interventions, but understanding when typewriter assembly and parts inspector offered renal concerns with diclofenac and habit-forming [...] pain: see Medicine consult - HTN: restarted KILN BURNER medications - GERD: restarted PPI - HLD: [...] symptoms. 07/19: Increase quetiapine to 100mg TID. KILN BURNER dose was 800mg qHS. UDS+ for amphetamines. 07/20: Will give Seroquel 200mg at bedtime this edil then combine doses / change dose to 400mg po qhs. Will titrate to KILN BURNER dose of 800mg po qhs as tolerated / indicated. Hold Lexapro for now. He has not been consistently taking it. Increase Neurontin to 600mg po TID. Offer Zyprexa 10mg po BID PRN. Continue CIWA protocol w PRN Valium and PRN Clonidine. 07/21: Lidocaine patch daily. Medicine consult if [facility] is issued. 07/22: Medicine consult for chronic back pain management. Increase Seroquel to 500mg po qhs. D/c PRNMelatonin and replace w PRN Benadryl. 07/23: Increase Seroquel to 600mg po qhs. Per his request, change Flexeril 10mg from TID PRN to TID.Will avoid Requip for RLS as it could worsen his [place] sxs. Instead, will increase Neurontin to 900mg po TID. Spiritual care consult ordered. 07/24: Advance Seroquel to 700mg po qhs. Add Trazodone 50mg po qhs + 50mg po qhs PRN. Changed Benadryl to PRN itching only as this could worsen RLS, if that is truly what he has. Will discuss the possibility of akathisia (vs RLS) tomorrow. 07/25: Increase Seroquel to his KILN BURNER dose of 800mg po qhs. Add a [...] Milieu Management: Admit to: NE4 Legal: >> [facility] (prelim 07/29) Acuity level: Red (caution - [...] is 14 days. Anticipated disposition: home vs alf vs [facility] tx Risk Assessment: assault: Medium - paranoid Suicide Risk: Low Patient Strengths: willing to take medications Patient was additionally evaluated in person by Dr. Crawley, who agrees with the above documentation and plan. Jaden Wetzel PA-C * Jaden Wetzel PA-C - 07/30/2023 8:37 AM CDT [facility] Psychiatry Progress Note PATIENT NAME: Nicanor Alvarado DATE OF SERVICE: 07/30/2023 ATTENDING PRACTITIONER: Jaden Wetzel PA-C HOSPITAL DAY # 10 CHIEF COMPLAINT subsequent inpatient psychiatric encounter INTERVAL HISTORY Nicanor Alvarado was seen in f/u by typewriter assembly and parts inspector, where he is seen sitting in dining area and agreed to interview. States he is not too hot, follows this by noting a frustrating phone call with his workers compensation defense attorney in which he needed to repeat [...] to be a good fit for him. [employer] offered the need to monitor EKG at increased dose which he agrees to. Asked if typewriter assembly and parts inspector has ever seen doses above 800 mg. Flagged typewriter assembly and parts inspector down later in the day to request [...] Memory: impaired Insight: poor Judgment: poor CONSULTATION [facility] MEDICINE, 07/24/23: Assessment / Recommendations Follow up [...] do not believe this is the best fci medication for this patient for pain control [...] his room over the weekend. Admitted to [facility]: 07/20: Restless on exam. Reported +AH and +paranoia (under investigation - which he is starting toquestion as the truth). Less disorganized as compared to when on Medicine. He said he was not really sure about the events KILN BURNER. He drinks alcohol heavily, nearly 3L of [place] [employer]'s rum per week. He has been prescribed Lexapro, but he is not consistent w taking it. Sometimes I need more, referring to self medicating. He used methamphetamine KILN BURNER. He said he has +AH at his [...] denied having SI and he denied the KILN BURNER event asa SA. 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 When initially in the ED, he reported +SI (also while on Medicine) and, when questioned about ingestion, he replied w not enough. Per chart review from the 05/2023 Medicine admission (admitted for erratic driving / legal blood draw, while in the ED he had a syncopal episode and required Medicine admission then transfer to [facility]): He reports that he had about 2 hospitalizations in the past month. One in [facility] (04/24/2022) for acute toxic encephalopathy, drug overdose (cannabinoids, methamphetamine), and alcohol withdrawal w/ delirium tremens which required large amount of benzo. He says he had another hospitalization in [place]. He reports that one of these hospitalizations [...] as a problem, stating, I don't drive. [employer] noted that he recently missed a court date for aDUI charge and, last hospitalization here, he was brought here for a legal blood draw after being stopped for erratic driving. When asked about the pill bottles that were scattered around him, when found KILN BURNER, he could not give an explanation. Will [...] No overt paranoia. Reported +AH last edil. [facility] is supporting petition for commitment. 07/23: He [...] before him. The pt talked about his yazidi bel iefs, about not believing in suicide, [...] Xanax as effective interventions, but understanding when typewriter assembly and parts inspector offered renal concerns with diclofenac and habit-forming [...] pain: see Medicine consult - HTN: restarted KILN BURNER medications - GERD: restarted PPI - HLD: [...] symptoms. 07/19: Increase quetiapine to 100mg TID. KILN BURNER dose was 800mg qHS. UDS+ for amphetamines. 07/20: Will give Seroquel 200mg at bedtime this edil then combine doses / change dose to 400mg po qhs. Will titrate to KILN BURNER dose of 800mg po qhs as tolerated [...] for RLS as it could worsen his [place] sxs. Instead, will increase Neurontin to 900mg po TID. Spiritual care consult ordered. 07/24: Advance Seroquel to 700mg po qhs. Add Trazodone 50mg po qhs + 50mg po qhs PRN. Changed Benadryl to PRN itching only as this could worsen RLS, if that is truly what he has. Will discuss the possibility of akathisia (vs RLS) tomorrow. 07/25: Increase Seroquel to his KILN BURNER dose of 800mg po qhs. Add a [...] Milieu Management: Admit to: NE4 Legal: >> [facility] (prelim 07/29) Acuity level: Red (caution - [...] is 14 days. Anticipated disposition: home vs alf vs [facility] tx Risk Assessment: assault: Medium - paranoid Suicide Risk: Low Patient Strengths: willing to take medications Patient was additionally evaluated in person by Dr. Crawley, who agrees with the above documentation and plan. Jaden Wetzel PA-C * Lito Martin RN - 07/30/2023 6:14 AM CDT [facility] Plan of Care Note Assessment: Sleep Plan: Promote adequate sleep Subjective: n/a Objective: Pt appeared to be sleeping throughout the night. No acute concerns noted/reported. Plan of care on-going --- End of Report --- * Jaden Wetzel PA-C - 07/29/2023 8:33 AM CDT [facility] Psychiatry Progress Note PATIENT NAME: Nicanor Alvarado DATE OF SERVICE: 07/29/2023 ATTENDING PRACTITIONER: Jaden Wetzel PA-C HOSPITAL DAY # 9 CHIEF COMPLAINT subsequent inpatient psychiatric encounter INTERVAL HISTORY Nicanor Alvarado was seen in f/u by typewriter assembly and parts inspector and MD for f/u, where he was [...] working on referrals during his court process. Coremaker Floor agreed he looks well at thistime, could [...] SI, and [facility]. [facility]. [facility] is unkempt, intense, animated, loud, tearful, [...] Memory: impaired Insight: poor Judgment: poor CONSULTATION [facility] MEDICINE, 07/24/23: Assessment / Recommendations Follow up [...] do not believe this is the best fci medication for this patient for pain control [...] male who has been admitted to station CT4 for AH, paranoia, substance withdrawal, and possible [...] was not really sure about the events KILN BURNER. He drinks alcohol heavily, nearly 3L of [employer] [place]'s rum per week. He has been prescribed Lexapro, but he is not consistent w taking it. Sometimes I need more, referring to self medicating. He used methamphetamine KILN BURNER. He said he has +AH at his [...] denied having SI and he denied the KILN BURNER event asa SA. 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 When initially in the ED, he reported +SI (also while on Medicine) and, when questioned about ingestion, he replied w not enough. Per chart review from the 05/2023 Medicine admission (admitted for erratic driving / legal blood draw, while in the ED he had a syncopal episode and required Medicine admission then transfer to [facility]): He reports that he had about 2 hospitalizations in the past month. One in [facility] (04/24/2022) for acute toxic encephalopathy, drug overdose (cannabinoids, methamphetamine), and alcohol withdrawal w/ delirium tremens which required large amount of benzo. He says he had another hospitalization in [place]. He reports that one of these hospitalizations [...] as a problem, stating, I don't drive. [employer] noted that he recently missed a court date for aDUI charge and, last hospitalization here, he was brought here for a legal blood draw after being stopped for erratic driving. When asked about the pill bottles that were scattered around him, when found KILN BURNER, he could not give an explanation. Will [...] No overt paranoia. Reported +AH last edil. [facility] is supporting petition for commitment. 07/23: He [...] before him. The pt talked about his yazidi bel iefs, about not believing in suicide, [...] Xanax as effective interventions, but understanding when typewriter assembly and parts inspector offered renal concerns with diclofenac and habit-forming [...] pain: see Medicine consult - HTN: restarted KILN BURNER medications - GERD: restarted PPI - HLD: [...] symptoms. 07/19: Increase quetiapine to 100mg TID. KILN BURNER dose was 800mg qHS. UDS+ for amphetamines. 07/20: Will give Seroquel 200mg at bedtime this edil then combine doses / change dose to 400mg po qhs. Will titrate to KILN BURNER dose of 800mg po qhs as tolerated [...] for RLS as it could worsen his [place] sxs. Instead, will increase Neurontin to 900mg po TID. Spiritual care consult ordered. 07/24: Advance Seroquel to 700mg po qhs. Add Trazodone 50mg po qhs + 50mg po qhs PRN. Changed Benadryl to PRN itching only as this could worsen RLS, if that is truly what he has. Will discuss the possibility of akathisia (vs RLS) tomorrow. 07/25: Increase Seroquel to his KILN BURNER dose of 800mg po qhs. Add a [...] is 14 days. Anticipated disposition: home vs alf vs [facility] tx Risk Assessment: assault: Medium - paranoid Suicide Risk: Low Patient Strengths: willing to take medications Patient was additionally evaluated in person by Dr. Crawley, who agrees with the above documentation and plan. 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 [facility] will sign off. Please reach out [...] male who has been admitted to station [facility] for AH, paranoia, substance withdrawal, and possible [...] was not really sure about the events KILN BURNER. He drinks alcohol heavily, nearly 3L of [place] rum per week. He has been prescribed Lexapro, but he is not consistent w taking it. Sometimes I need more, referring to self medicating. He used methamphetamine KILN BURNER. He said he has +AH at his [...] denied having SI and he denied the KILN BURNER event asa SA. 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 When initially in the ED, he reported +SI (also while on Medicine) and, when questioned about ingestion, he replied w not enough. Per chart review from the 05/2023 Medicine admission (admitted for erratic driving / legal blood draw, while in the ED he had a syncopal episode and required Medicine admission then transfer to [facility]): He reports that he had about 2 hospitalizations in the past month. One in [facility] (04/24/2022) for acute toxic encephalopathy, drug overdose (cannabinoids, methamphetamine), and alcohol withdrawal w/ delirium tremens which required large amount of benzo. He says he had another hospitalization in [place]. He reports that one of these hospitalizations [...] as a problem, stating, I don't drive. [employer] noted that he recently missed a court date for aDUI charge and, last hospitalization here, he was brought here for a legal blood draw after being stopped for erratic driving. When asked about the pill bottles that were scattered around him, when found KILN BURNER, he could not give an explanation. Will [...] No overt paranoia. Reported +AH last edil. [facility] is supporting petition for commitment. 07/23: He [...] before him. The pt talked about his yazidi bel iefs, about not believing in suicide, [...] Xanax as effective interventions, but understanding when typewriter assembly and parts inspector offered renal concerns with diclofenac and habit-forming [...] pain: see Medicine consult - HTN: restarted KILN BURNER medications - GERD: restarted PPI - HLD: [...] symptoms. 07/19: Increase quetiapine to 100mg TID. KILN BURNER dose was 800mg qHS. UDS+ for amphetamines. 07/20: Will give Seroquel 200mg at bedtime this edil then combine doses / change dose to 400mg po qhs. Will titrate to KILN BURNER dose of 800mg po qhs as tolerated / indicated. Hold Lexapro for now. He has not been consistently taking it. Increase Neurontin to 600mg po TID. Offer Zyprexa 10mg po BID PRN. Continue CIWA protocol w PRN Valium and PRN Clonidine. 07/21: Lidocaine patch daily. Medicine consult if [facility] is issued. 07/22: Medicine consult for chronic back pain management. Increase Seroquel to 500mg po qhs. D/c PRNMelatonin and replace w PRN Benadryl. 07/23: Increase Seroquel to 600mg po qhs. Per his request, change Flexeril 10mg from TID PRN to TID.Will avoid Requip for RLS as it could worsen his [place] sxs. Instead, will increase Neurontin to 900mg po TID. Spiritual care consult ordered. 07/24: Advance Seroquel to 700mg po qhs. Add Trazodone 50mg po qhs + 50mg po qhs PRN. Changed Benadryl to PRN itching only as this could worsen RLS, if that is truly what he has. Will discuss the possibility of akathisia (vs RLS) tomorrow. 07/25: Increase Seroquel to his KILN BURNER dose of 800mg po qhs. Add a [...] is 14 days. Anticipated disposition: home vs alf vs [facility] tx Risk Assessment: assault: Medium - paranoid Suicide Risk: No Acute Risk Patient Strengths: willing to take medications Patient was additionally evaluated in person by Dr. Crawley, who agrees with the above documentation and plan. Jaden Wetzel PA-C * Jaden Wetzel PA-C - 07/27/2023 8:33 AM CDT [facility] Psychiatry Progress Note PATIENT NAME: Nicanor Alvarado DATE OF SERVICE: 07/27/2023 ATTENDING PRACTITIONER: Jaden Wetzel PA-C HOSPITAL DAY # 7 CHIEF COMPLAINT subsequent inpatient psychiatric encounter INTERVAL HISTORY Nicanor Alvarado was seen in f/u by typewriter assembly and parts inspector and MD for f/u, where he was [...] Memory: impaired Insight: poor Judgment: poor CONSULTATION [facility] MEDICINE, 07/24/23: Assessment / Recommendations Follow up [...] do not believe this is 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 [facility] will sign off. Please reach out with [...] male who has been admitted to station [facility] for AH, paranoia, substance withdrawal, and possible [...] was not really sure about the events KILN BURNER. He drinks alcohol heavily, nearly 3L of [place]'s rum per week. He has been prescribed Lexapro, but he is not consistent w taking it. Sometimes I need more, referring to self medicating. He used methamphetamine KILN BURNER. He said he has +AH at his [...] denied having SI and he denied the KILN BURNER event asa SA. 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 When initially in the ED, he reported +SI (also while on Medicine) and, when questioned about ingestion, he replied w not enough. Per chart review from the 05/2023 Medicine admission (admitted for erratic driving / legal blood draw, while in the ED he had a syncopal episode and required Medicine admission then transfer to [facility]): He reports that he had about 2 hospitalizations in the past month. One in [facility] (04/24/2022) for acute toxic encephalopathy, drug overdose (cannabinoids, methamphetamine), and alcohol withdrawal w/ delirium tremens which required large amount of benzo. He says he had another hospitalization in [place]. He reports that one of these hospitalizations [...] as a problem, stating, I don't drive. [employer] noted that he recently missed a court date for aDUI charge and, last hospitalization here, he was brought here for a legal blood draw after being stopped for erratic driving. When asked about the pill bottles that were scattered around him, when found KILN BURNER, he could not give an explanation. Will [...] before him. The pt talked about his yazidi bel iefs, about not believing in suicide, [...] Xanax as effective interventions, but understanding when typewriter assembly and parts inspector offered renal concerns with diclofenac and habit-forming [...] pain: see Medicine consult - HTN: restarted KILN BURNER medications - GERD: restarted PPI - HLD: [...] symptoms. 07/19: Increase quetiapine to 100mg TID. KILN BURNER dose was 800mg qHS. UDS+ for amphetamines. 07/20: Will give Seroquel 200mg at bedtime this edil then combine doses / change dose to 400mg po qhs. Will titrate to KILN BURNER dose of 800mg po qhs as tolerated / indicated. Hold Lexapro for now. He has not been consistently taking it. Increase Neurontin to 600mg po TID. Offer Zyprexa 10mg po BID PRN. Continue CIWA protocol w PRN Valium and PRN Clonidine. 07/21: Lidocaine patch daily. Medicine consult if [facility] is issued. 07/22: Medicine consult for chronic back pain management. Increase Seroquel to 500mg po qhs. D/c PRNMelatonin and replace w PRN Benadryl. 07/23: Increase Seroquel to 600mg po qhs. Per his request, change Flexeril 10mg from TID PRN to TID.Will avoid Requip for RLS as it could worsen his [place] sxs. Instead, will increase Neurontin to 900mg po TID. Spiritual care consult ordered. 07/24: Advance Seroquel to 700mg po qhs. Add Trazodone 50mg po qhs + 50mg po qhs PRN. Changed Benadryl to PRN itching only as this could worsen RLS, if that is truly what he has. Will discuss the possibility of akathisia (vs RLS) tomorrow. 07/25: Increase Seroquel to his KILN BURNER dose of 800mg po qhs. Add a [...] Milieu Management: Admit to: NE4 Legal: >> [facility] (prelim 07/29) Acuity level: Red (caution - [...] is 14 days. Anticipated disposition: home vs alf vs [facility] tx Risk Assessment: assault: Medium - paranoid Suicide Risk: No Acute Risk Patient Strengths: willing to take medications Patient was additionally evaluated in person by Dr. Crawley, who agrees with the above documentation and plan. Jaden Wetzel PA-C * Kristin Rutledge PA-C - 07/26/2023 2:57 PM CDT [facility] Psychiatry Progress Note PATIENT NAME: Nicanor Alvarado DATE OF SERVICE: 07/26/2023 ATTENDING PRACTITIONER: Kristin Rutledge PA-C HOSPITAL DAY # 6 CHIEF COMPLAINT subsequent inpatient psychiatric encounter INTERVAL HISTORY Nicanor Alvarado was seen in f/u by typewriter assembly and parts inspector. He is a very inconsistent historian w [...] BZD, opioids. He denied AH. He showed typewriter assembly and parts inspector bruises on both arms and wondered where [...] Memory: impaired Insight: poor Judgment: poor CONSULTATION [facility] MEDICINE, 07/24/23: Assessment / Recommendations Follow up [...] do not believe this is the best fci medication for this patient for pain control [...] his room over the weekend. Admitted to [facility]: 07/20: Restless on exam. Reported +AH and +paranoia (under investigation - which he is starting toquestion as the truth). Less disorganized as compared to when on Medicine. He said he was not really sure about the events KILN BURNER. He drinks alcohol heavily, nearly 3L of [employer]'s rum per week. He has been prescribed Lexapro, but he is not consistent w taking it. Sometimes I need more, referring to self medicating. He used methamphetamine KILN BURNER. He said he has +AH at his [...] denied having SI and he denied the KILN BURNER event asa SA. 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 When initially in the ED, he reported +SI (also while on Medicine) and, when questioned about ingestion, he replied w not enough. Per chart review from the 05/2023 Medicine admission (admitted for erratic driving / legal blood draw, while in the ED he had a syncopal episode and required Medicine admission then transfer to [facility]): He reports that he had about 2 hospitalizations in the past month. One in [facility] (04/24/2022) for acute toxic encephalopathy, drug overdose (cannabinoids, methamphetamine), and alcohol withdrawal w/ delirium tremens which required large amount of benzo. He says he had another hospitalization in [place]. He reports that one of these hospitalizations [...] as a problem, stating, I don't drive. [employer] noted that he recently missed a court date for aDUI charge and, last hospitalization here, he was brought here for a legal blood draw after being stopped for erratic driving. When asked about the pill bottles that were scattered around him, when found KILN BURNER, he could not give an explanation. Will [...] No overt paranoia. Reported +AH last edil. [facility] is supporting petition for commitment. 07/23: He [...] before him. The pt talked about his yazidi bel iefs, about not believing in suicide, [...] pain: see Medicine consult - HTN: restarted KILN BURNER medications - GERD: restarted PPI - HLD: [...] symptoms. 07/19: Increase quetiapine to 100mg TID. KILN BURNER dose was 800mg qHS. UDS+ for amphetamines. 07/20: Will give Seroquel 200mg at bedtime this edil then combine doses / change dose to 400mg po qhs. Will titrate to KILN BURNER dose of 800mg po qhs as tolerated / indicated. Hold Lexapro for now. He has not been consistently taking it. Increase Neurontin to 600mg po TID. Offer Zyprexa 10mg po BID PRN. Continue CIWA protocol w PRN Valium and PRN Clonidine. 07/21: Lidocaine patch daily. Medicine consult if [facility] is issued. 07/22: Medicine consult for chronic back pain management. Increase Seroquel to 500mg po qhs. D/c PRNMelatonin and replace w PRN Benadryl. 07/23: Increase Seroquel to 600mg po qhs. Per his request, change Flexeril 10mg from TID PRN to TID.Will avoid Requip for RLS as it could worsen his [place] sxs. Instead, will increase Neurontin to 900mg po TID. Spiritual care consult ordered. 07/24: Advance Seroquel to 700mg po qhs. Add Trazodone 50mg po qhs + 50mg po qhs PRN. Changed Benadryl to PRN itching only as this could worsen RLS, if that is truly what he has. Will discuss the possibility of akathisia (vs RLS) tomorrow. 07/25: Increase Seroquel to his KILN BURNER dose of 800mg po qhs. Add a 2nd Lidocaine patch. Maximize daily APAP dose by allowing a daily PRN dose to his TID scheduled APAP. Pain Management consult placed. Trial Cogentin 1mg po BID for possible akathisia. D/c PRN Benadryl as he has Trazodone available. D/c CIWA. Milieu Management: Admit to: NE4 Legal: >> [facility] (prelim 07/29) Acuity level: Red (caution - [...] is 14 days. Anticipated disposition: home vs alf vs [facility] tx Risk Assessment: assault: Medium - paranoid Suicide Risk: No Acute Risk Patient Strengths: willing to take medications Kristin Rutledge PA-C * Kristin Rutledge PA-C - 07/25/2023 2:43 PM CDT [facility] Psychiatry Progress Note PATIENT NAME: Nicanor Alvarado DATE OF SERVICE: 07/25/2023 ATTENDING PRACTITIONER: Kristin Rutledge PA-C HOSPITAL DAY # 5 CHIEF COMPLAINT subsequent inpatient psychiatric encounter INTERVAL HISTORY Nicanor Alvarado was seen in f/u by typewriter assembly and parts inspector. When asked about ongoing diaphoresis, he reported [...] Memory: impaired Insight: poor Judgment: poor CONSULTATION [facility] MEDICINE, 07/24/23: Assessment / Recommendations Follow up [...] do not believe this is the best fci medication for this patient for pain control [...] male who has been admitted to station [facility] for AH, paranoia, substance withdrawal, and possible [...] his room over the weekend. Admitted to [facility]: 07/20: Restless on exam. Reported +AH and +paranoia (under investigation - which he is starting toquestion as the truth). Less disorganized as compared to when on Medicine. He said he was not really sure about the events KILN BURNER. He drinks alcohol heavily, nearly 3L of [employer]'s rum per week. He has been prescribed Lexapro, but he is not consistent w taking it. Sometimes I need more, referring to self medicating. He used methamphetamine KILN BURNER. He said he has +AH at his [...] denied having SI and he denied the KILN BURNER event asa SA. 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 When initially in the ED, he reported +SI (also while on Medicine) and, when questioned about ingestion, he replied w not enough. Per chart review from the 05/2023 Medicine admission (admitted for erratic driving / legal blood draw, while in the ED he had a syncopal episode and required Medicine admission then transfer to [facility]): He reports that he had about 2 hospitalizations in the past month. One in [facility] (04/24/2022) for acute toxic encephalopathy, drug overdose (cannabinoids, methamphetamine), and alcohol withdrawal w/ delirium tremens which required large amount of benzo. He says he had another hospitalization in [place]. He reports that one of these hospitalizations [...] as a problem, stating, I don't drive. [employer] noted that he recently missed a court date for aDUI charge and, last hospitalization here, he was brought here for a legal blood draw after being stopped for erratic driving. When asked about the pill bottles that were scattered around him, when found KILN BURNER, he could not give an explanation. Will file a petition for civil commitment. 07/22: Quite tense, irritable, and rude on approach. Said he wants to d/c directly to [facility] he suspects there must be a bench warrant issued for his arrest d/t missing a DUI court date a few weeks back. He slept better, but asked for PRN Benadryl instead of PRN Melatonin. Thought processwas linear. No overt paranoia. Reported +AH last edil. [facility] is supporting petition for commitment. 07/23: He [...] before him. The pt talked about his yazidi bel iefs, about not believing in suicide, [...] pain: see Medicine consult - HTN: restarted KILN BURNER medications - GERD: restarted PPI - HLD: [...] symptoms. 07/19: Increase quetiapine to 100mg TID. KILN BURNER dose was 800mg qHS. UDS+ for amphetamines. 07/20: Will give Seroquel 200mg at bedtime this edil then combine doses / change dose to 400mg po qhs. Will titrate to KILN BURNER dose of 800mg po qhs as tolerated [...] for RLS as it could worsen his [place] sxs. Instead, will increase Neurontin to 900mg [...] Milieu Management: Admit to: NE4 Legal: >> [facility] Acuity level: Red (caution - at risk, [...] is 14 days. Anticipated disposition: home vs alf vs [facility] tx Risk Assessment: assault: Medium - paranoid Suicide Risk: No Acute Risk Patient Strengths: willing to take medications Kristin Rutledge PA-C * Kristin Rutledge PA-C - 07/24/2023 2:26 PM CDT [facility] Psychiatry Progress Note PATIENT NAME: Nicanor Alvarado DATE OF SERVICE: 07/24/2023 ATTENDING PRACTITIONER: Kristin Rutledge PA-C HOSPITAL DAY # 4 CHIEF COMPLAINT subsequent inpatient psychiatric encounter INTERVAL HISTORY Nicanor Alvarado was seen in f/u by typewriter assembly and parts inspector and MD. We discussed the probate court process, time frames, and possible outcomes. He was very focused on his medical issues and getting all KILN BURNER meds prescribed -- flomax, testosterone injections (deferred [...] before him. 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 He drinks alcohol heavily, nearly 3L of [employer]'s rum per week. He has been prescribed Lexapro, but he is not consistent w taking it. Sometimes I need more, referring to self medicating. He used methamphetamine KILN BURNER. He said he has +AH at his [...] denied having SI and he denied the KILN BURNER event asa SA. 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 When initially in the ED, he reported +SI (also while on Medicine) and, when questioned about ingestion, he replied w not enough. Per chart review from the 05/2023 Medicine admission (admitted for erratic driving / legal blood draw, while in the ED he had a syncopal episode and required Medicine admission then transfer to [facility]): He reports that he had about 2 hospitalizations in the past month. One in [facility] (04/24/2022) for acute toxic encephalopathy, drug overdose (cannabinoids, methamphetamine), and alcohol withdrawal w/ delirium tremens which required large amount of benzo. He says he had another hospitalization in [place]. He reports that one of these hospitalizations [...] as a problem, stating, I don't drive. [employer] noted that he recently missed a court date for aDUI charge and, last hospitalization here, he was brought here for a legal blood draw after being stopped for erratic driving. When asked about the pill bottles that were scattered around him, when found KILN BURNER, he could not give an explanation. Will [...] No overt paranoia. Reported +AH last edil. [facility] is supporting petition for commitment. 07/23: He [...] before him. The pt talked about his yazidi bel iefs, about not believing in suicide, [...] pain: see Medicine consult - HTN: restarted KILN BURNER medications - GERD: restarted PPI - HLD: [...] symptoms. 07/19: Increase quetiapine to 100mg TID. KILN BURNER dose was 800mg qHS. UDS+ for amphetamines. 07/20: Will give Seroquel 200mg at bedtime this edil then combine doses / change dose to 400mg po qhs. Will titrate to KILN BURNER dose of 800mg po qhs as tolerated / indicated. Hold Lexapro for now. He has not been consistently taking it. Increase Neurontin to 600mg po TID. Offer Zyprexa 10mg po BID PRN. Continue CIWA protocol w PRN Valium and PRN Clonidine. 07/21: Lidocaine patch daily. Medicine consult if [facility] is issued. 07/22: Medicine consult for chronic back pain management. Increase Seroquel to 500mg po qhs. D/c PRNMelatonin and replace w PRN Benadryl. 07/23: Increase Seroquel to 600mg po qhs. Per his request, change Flexeril 10mg from TID PRN to TID.Will avoid Requip for RLS as it could worsen his [place] sxs. Instead, will increase Neurontin to 900mg po TID. Will discuss the possibility of akathisia (vs RLS) tomorrow. Spiritual care consult ordered.Will order Pain Medicine consult on Wednesday if pt agrees. Milieu Management: Admit to: NE4 Legal: >> [facility] Acuity level: Red (caution - at risk, [...] is 14 days. Anticipated disposition: home vs alf vs [facility] tx Risk Assessment: assault: Medium [...] do not believe this is the best intermediate school teacher medication for this patient for pain control [...] out with any questions/concerns. Orin Nelson PA-C. [facility] [phone] * Kristin Rutledge PA-C - 07/23/2023 2:40 PM CDT [facility] Psychiatry Progress Note PATIENT NAME: Nicanor Alvarado DATE OF SERVICE: 07/23/2023 ATTENDING PRACTITIONER: Kristin Rutledge PA-C HOSPITAL DAY # 3 CHIEF COMPLAINT subsequent inpatient psychiatric encounter INTERVAL HISTORY Nicanor Alvarado was seen in f/u by typewriter assembly and parts inspector. He was found resting in bed and was quite irritable onapproach. What?! Spit it out!, likely referring to whether or not the [facility] the petition for commitment. He said he wants to d/c directly to [facility] alf as he suspects there must lorena bench [...] Attention: intact Insight: poor Judgment: poor CONSULTATION [facility] MEDICINE, 07/23/23: Assessment / Recommendations Patient is [...] his room over the weekend. Admitted to [facility]: 07/20: Restless on exam. Reported +AH and +paranoia (under investigation - which he is starting toquestion as the truth). Less disorganized as compared to when on Medicine. He said he was not really sure about the events KILN BURNER. He drinks alcohol heavily, nearly 3L of [employer] rum per week. He has been prescribed Lexapro, but he is not consistent w taking it. Sometimes I need more, referring to self medicating. He used methamphetamine KILN BURNER. He said he has +AH at his [...] denied having SI and he denied the KILN BURNER event asa SA. 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 When initially in the ED, he reported +SI (also while on Medicine) and, when questioned about ingestion, he replied w not enough. Per chart review from the 05/2023 Medicine admission (admitted for erratic driving / legal blood draw, while in the ED he had a syncopal episode and required Medicine admission then transfer to [facility]): He reports that he had about 2 hospitalizations in the past month. One in [facility] (04/24/2022) for acute toxic encephalopathy, drug overdose (cannabinoids, methamphetamine), and alcohol withdrawal w/ delirium tremens which required large amount of benzo. He says he had another hospitalization in [place]. He reports that one of these hospitalizations [...] as a problem, stating, I don't drive. [employer] noted that he recently missed a court date for aDUI charge and, last hospitalization here, he was brought here for a legal blood draw after being stopped for erratic driving. When asked about the pill bottles that were scattered around him, when found KILN BURNER, he could not give an explanation. Will [...] No overt paranoia. Reported +AH last edil. [facility] is supporting petition for commitment. DIAGNOSES & [...] pain: see Medicine consult - HTN: restarted KILN BURNER medications - GERD: restarted PPI - HLD: [...] symptoms. 07/19: Increase quetiapine to 100mg TID. KILN BURNER dose was 800mg qHS. UDS+ for amphetamines. 07/20: Will give Seroquel 200mg at bedtime this edil then combine doses / change dose to 400mg po qhs. Will titrate to KILN BURNER dose of 800mg po qhs as tolerated [...] Milieu Management: Admit to: NE4 Legal: >> [facility] Acuity level: Red (caution - at risk, [...] is 14 days. Anticipated disposition: home vs alf vs [facility] tx Risk Assessment: assault: Medium [...] from the original note were not included. [facility] Psychiatry Progress Note PATIENT NAME: Nicanor Alvarado DATE OF SERVICE: 07/22/2023 ATTENDING PRACTITIONER: Kristin Rutledge PA-C HOSPITAL DAY #2 CHIEF COMPLAINT subsequent inpatient psychiatric encounter INTERVAL HISTORY Nicanor Alvarado was seen in f/u by typewriter assembly and parts inspector and MD. He said he slept poorly [...] to the events prior to this admission. [employer] asked about a recent hospitalization in [place]. He did not give details, only s judit, That was bad. He refused access to [facility] records. He does not see his drinking as a problem, stating, I don't drive. [employer] Floor noted that he recently missed a court [...] male who has been admitted to station [facility] for AH, paranoia, substance withdrawal, and possible [...] his room over the weekend. Admitted to [facility]: 07/20: Restless on exam. Reported +AH and +paranoia (under investigation - which he is starting toquestion as the truth). Less disorganized as compared to when on Medicine. He said he was not really sure about the events KILN BURNER. He drinks alcohol heavily, nearly 3L of [employer]'s rum per week. He has been prescribed Lexapro, but he is not consistent w taking it. Sometimes I need more, referring to self medicating. He used methamphetamine KILN BURNER. He said he has +AH at his [...] denied having SI and he denied the KILN BURNER event asa SA. 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 When initially in the ED, he reported +SI (also while on Medicine) and, when questioned about ingestion, he replied w not enough. Per chart review from the 05/2023 Medicine admission (admitted for erratic driving / legal blood draw, while in the ED he had a syncopal episode and required Medicine admission then transfer to [facility]): He reports that he had about 2 hospitalizations in the past month. One in [facility] (04/24/2022) for acute toxic encephalopathy, drug overdose (cannabinoids, methamphetamine), and alcohol withdrawal w/ delirium tremens which required large amount of benzo. He says he had another hospitalization in [place]. He reports that one of these hospitalizations [...] tofacilitate a door to door transfer to [facility]. He was educated on his risk of relapse and reminded of his recent hospitalizations, related to use / overdosing. Pt was reminded that he himself stated someone could have in relation to the events prior to this admission. He does not see his drinking as a problem, stating, I don't drive. [employer] noted that he recently missed a court date for aDUI charge and, last hospitalization here, he was brought here for a legal blood draw after being stopped for erratic driving. When asked about the pill bottles that were scattered around him, when found KILN BURNER, he could not give an explanation. Will [...] / consider Medicine consult - HTN: restarted KILN BURNER medications - GERD: restarted PPI - HLD: restarted statin Medication Ordered/Consults/Labs/Tests Ordered: 07/18: Delirium precautions ordered. Seroquel ordered 100 mg QHS and 50 mg q4PRN. Zyprexa 5 PO mg vs10 mg IV - TID PRN if needed. UDS ordered. Will order high dosed Thiamine. Will order addiction consult. Gabapentin 300 mg TID ordered for withdrawal symptoms. 07/19: Increase quetiapine to 100mg TID. KILN BURNER dose was 800mg qHS. UDS+ for amphetamines. 07/20: Will give Seroquel 200mg at bedtime this edil then combine doses / change dose to 400mg po qhs. Will titrate to KILN BURNER dose of 800mg po qhs as tolerated [...] is 3-14 days. Anticipated disposition: home vs alf vs [facility] tx Risk Assessment: assault: Medium [...] Aaron Galicia M.D. [facility] [phone] HISTORY OF PRESENT ILLNESS: Per Chart Review: [...] presented to the ED today from the [place] ED for evaluation of altered mental status and possible ingestion. Pt isunable to provide any history due to his altered mental status HPI taken from ED notes and signout. Per ED note: Patient came from home, was picked up by [place] [facility], multiple pill bottles surrounding the patient, more than 15, unsure of what the patient took, patient was altered and did not provide much history. Had a low-grade temperature of 99?? with a white count of 20, given a dose of Zosyn. Transferred here to [facility] for further evaluation. On my discussion [...] Gabapentin 600 mg t.i.d. PAIN SPECIALIST: none IMPLEMENTATION ARCHITECT database review: Risk Factors: History of substance [...] Current Facility-Administered Medications Ordered in [facility] Medication Dose Route Frequency Provider Last Rate [...] at 07/26/23 0148 No current [facility]-ordered outpatient medications on file. LABORATORY VALUES: Last [...] - appropriate. 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 Patient had an [...] Rutledge PA-C - 07/21/2023 2:26 PM CDT [facility] DEPARTMENT OF PSYCHIATRY ADMISSION Nicanor Alvarado Admission Date and Time: 07/20/2023 4:24 PM Date/Time of this exam: 07/21/2023 5:27 PM Attending provider: Kristin Rutledge PA-C Chief Complaint I'm not really sure. History of Present Illness Nicanor Alvarado is a 57 y.o. male who has been admitted for psychiatric stabilization in [facility] Medicine. The patient is being admitted [...] presented to the ED today from the [place] [facility] for evaluation of altered mental status and possible ingestion. Pt isunable to provide any history due to his altered mental status HPI taken from ED notes and signout. Per ED note: Patient came from home, was picked up by [place] [facility], multiple pill bottles surrounding the patient, more than 15, unsure of what the patient took, patient was altered and did not provide much history. Had a low-grade temperature of 99?? with a white count of 20, given a dose of Zosyn. Transferred here to [facility] for further evaluation. On my discussion [...] NE4 INTERVIEW: The pt was seen by typewriter assembly and parts inspector and MD on NE4. He said he was not really sure about the events KILN BURNER. He said he had 2 children and one of them maybe committed suicide and the other one has tried 8 or 9times. From this, he moved into, I drink a lot, and I have some depression. He reported drinkingnearly 3L of [employer] rum per week. He has been prescribed Lexapro, but he is not consistent w taking it. Sometimes I need more, referring to self medicating. He used methamphetamine KILN BURNER. He said he has +AH at his [...] denied having SI and he denied the KILN BURNER event as a SA. He spoke of [...] salts use. -- 2023, had admission to [place] [address] in May, after initially being admitted to Medicine. He was brought in for erratic driving / legal blood draw. While in the ED, he had a syncopal episode and required admission. -- Per chart review from the 05/2023 Medicine admission: He reports that he had about 2 hospitalizations in the past month. One in [facility] (04/24/2022) for acute toxic encephalopathy, drug overdose (cannabinoids, methamphetamine), and alcohol withdrawal w/ delirium tremens which required large amount of benzo. He says he had another hospitalization in [place]. He reports that one of these hospitalizations led to ICU stay and he was told that his kidney were failing, but no detailedrecords of outside hospital stay are available on admission. Current Psychiatrist: none Therapist: none ECT (#, date, methods): none Suicide attempts (#, date, methods): perhaps this KILN BURNER overdose Previous Psychiatric Meds: Seroquel, Zyprexa, Depakote, Zoloft, Trazodone, Gabapentin, Lexapro Chemical History Last Use: just KILN BURNER Substance of Choice: Alcohol, Amphetamines, BZD, and [...] Grew up in a caodaism family in [place]. 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 Children: Two children, one in 2016 by suicide. Reason for end of marriage: unclear Living situation: lives with mother currently. Work History: Has worked at [employer] in past. Legal Problems: Yes, multiple DWIs. [...] male who has been admitted to station [facility] for AH, paranoia, substance withdrawal, and possible [...] his room over the weekend. Admitted to CT4: 07/20: Restless on exam. Reported +AH and +paranoia (under investigation - which he is starting toquestion as the truth). Less disorganized as compared to when on Medicine. He said he was not really sure about the events KILN BURNER. He drinks alcohol heavily, nearly 3L of [employer] rum per week. He has been prescribed Lexapro, but he is not consistent w taking it. Sometimes I need more, referring to self medicating. He used methamphetamine KILN BURNER. He said he has +AH at his [...] denied having SI and he denied the KILN BURNER event asa SA. 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 When initially in the ED, he reported +SI (also while on Medicine) and, when questioned about ingestion, he replied w not enough. Per chart review from the 05/2023 Medicine admission (admitted for erratic driving / legal blood draw, while in the ED he had a syncopal episode and required Medicine admission then transfer to [facility]): He reports that he had about 2 hospitalizations in the past month. One in [facility] (04/24/2022) for acute toxic encephalopathy, drug overdose (cannabinoids, methamphetamine), and alcohol withdrawal w/ delirium tremens which required large amount of benzo. He says he had another hospitalization in [place]. He reports that one of these hospitalizations [...] / consider Medicine consult - HTN: restarted KILN BURNER medications - GERD: restarted PPI - HLD: restarted statin Medication Ordered/Consults/Labs/Tests Ordered: 07/18: Delirium precautions ordered. Seroquel ordered 100 mg QHS and 50 mg q4PRN. Zyprexa 5 PO mg vs10 mg IV - TID PRN if needed. UDS ordered. Will order high dosed Thiamine. Will order addiction consult. Gabapentin 300 mg TID ordered for withdrawal symptoms. 07/19: Increase quetiapine to 100mg TID. KILN BURNER dose was 800mg qHS. UDS+ for amphetamines. 07/20: Will give Seroquel 200mg at bedtime this edil then combine doses / change dose to 400mg po qhs. Will titrate to KILN BURNER dose of 800mg po qhs as tolerated [...] is 3-14 days. Anticipated disposition: home vs alf vs YASMEEN tx Risk Assessment: assault: Medium [...] ROUTINE(LAB PERFORM) Routine 08/03/2023 8:20 AM CDT ECG-ROUTINE 12 LEAD; INTRPT & REPRT Routine 08/03/2023 8:13 AM CDT BASIC METABOLIC PANEL Routine 07/23/2023 5:13 PM CDT documented in this encounter Results * (ABNORMAL) Basic Metabolic Panel (08/12/2023 8:13 AM CDT) Sodium 138 136 - 145 mmol/L 08/12/2023 9:20 AM [facility] Potassium 4.3 3.5 - 5.1 mmol/L 08/12/2023 9:20 AM [facility] Comment:Specimen slightly he molyzed. Hemolysis may affect result. Chloride 103 98 - 109 mmol/L 08/12/2023 9:20 AM [facility] CO2 24 20 - 29 mmol/L 08/12/2023 9:20 AM [facility] Anion Gap 11 6 - 16 mmol/L 08/12/2023 9:20 [facility] Calcium 10.1 8.4 - 10.4 mg/dL 08/12/2023 9:20 AM [facility] BUN 19 7 - 26 mg/dL 08/12/2023 9:20 AM [facility] Creatinine 1.19(H) 0.73 - 1.18 mg/dL 08/12/2023 9:20 AM [facility] Glucose 105(H) 70 - 100 mg/dL 08/12/2023 9:20 [facility] Comment:The given reference range is for the fasting state. Non-fasting reference range for glucose is 70 - 180 mg/dL. GFR, Estimated >60 >60 mL/min/1.7 3m2 08/12/2023 9:20 [facility] Blood Venipuncture / Unknown 08/12/2023 8:13 AM CDT 08/12/2023 8:49 AM CDT Kristin Rutledge PA-C LAB_1 Performing Organization Address [facility] Co de Phone Number [address] * Extra Lavender top tube (08/12/2023 8:10 AM CDT) Extra Lavender Top Drawn Specimen will be held for 3 days 08/12/2023 10:00 AM CDT [facility] Blood Venipuncture / Unknown 08/12/2023 8:10 AM CDT 08/12/2023 8:50 AM CDT Cristo Lozano MD LAB_1 Performing Organization Address [facility] Phone [address] * Extra Lavender top tube (08/09/2023 8:37 AM CDT) Extra Lavender Top Drawn Specimen will be held for 3 days 08/09/2023 10:00 AM T [facility] Blood Venipuncture / Unknown 08/09/2023 8:37 AM CDT 08/09/2023 8:57 AM CDT Cristo Lozano MD LAB_1 Performing Organization Address [facility] Phone Number [address] * (ABNORMAL) Basic Metabolic Panel (08/09/2023 8:36 AM CDT) Sodium 139 136 - 145 mmol/L 08/09/2023 9:42 AM CDT [facility] Potassium 4.6 3.5 - 5.1 mmol/L 08/09/2023 9:42 AM T [facility] Comment:Specimen slightly he molyzed. Hemolysis may affect result. Chloride 103 98 - 109 mmol/L 08/09/2023 9:42 AM CDT [facility] CO2 28 20 - 29 mmol/L 08/09/2023 9:42 AM [facility] Anion Gap 8 6 - 16 mmol/L 08/09/2023 9:42 AM [facility] Calcium 9.9 8.4 - 10.4 mg/dL 08/09/2023 9:42 AM [facility] BUN 16 7 - 26 mg/dL 08/09/2023 9:42 AM [facility] Creatinine 1.24(H) 0.73 - 1.18 mg/dL 08/09/2023 9:42 AM [facility] Glucose 102(H) 70 - 100 mg/dL 08/09/2023 9:42 AM [facility] Comment:The given reference range is for the fasting state. Non-fasting reference range for glucose is 70 - 180 mg/dL. GFR, Estimated >60 >60 mL/min/1.7 3m2 08/09/2023 9:42 AM [facility] Blood Venipuncture / Unknown 08/09/2023 8:36 AM CDT 08/09/2023 8:56 AM CDT Charlene Lee APRN, JENNY LAB_1 Performing Organization Address [facility] Co de Phone Number [address] * ECG 12-Lead Routine (Lab perform) (08/03/2023 8:20 AM CDT) EKG Completed 08/03/2023 11:00 AM T [facility] Other Specimen Type Non-blood Collection / Unknown 08/03/2023 8:20 AM CDT 08/03/2023 9:05 AM CDT Jaden Wetzel PA-C LAB_1 Performing Organization Address [facility] Co de Phone Number [address] * Ecg 12-Lead Routine (MUSE) (08/03/2023 8:13 AM CDT) Ventricular Rate 88 BPM MUSE GHP Atrial Rate 88 BPM MUSE GHP P-R Interval 178 ms MUSE GHP QRS Duration 88 ms MUSE GHP QT 376 ms MUSE GHP QTc 454 ms MUSE GHP P [place] 36 degrees MUSE GHP R [place] 25 degrees MUSE GHP T [place] 5 degrees MUSE GHP 08/03/2023 8:13 AM CDT Narrative MUSE GHP - 09/28/2023 2:32 PM CDT Sinus rhythm Minimal voltage criteria for LVH, may be normal variant Nonspecific T wave abnormality Abnormal ECG When compared with ECG of 18-JUL-2023 20:29, No significant change was found Confirmed by Aaron Underwood ([id number]) on 09/28/2023 2:32:55 PM Procedure Note Aaron Underwood MD - 09/28/2023 Sinus rhythm Minimal voltage criteria for LVH, may be normal variant Nonspecific T wave abnormality Abnormal ECG When compared with ECG of 18-JUL-2023 20:29, No significant change was found Confirmed by Aaron Underwood ([id number]) on 09/28/2023 2:32:55 PM Jaden Wetzel PA-C EKG [facility] [address] [place] [address] * (ABNORMAL) Basic Metabolic Panel (07/23/2023 5:13 PM CDT) Sodium 136 136 - 145 mmol/L 07/23/2023 5:39 PM [facility] Potassium 5.1 3.5 - 5.1 mmol/L 07/23/2023 5:39 PM [facility] Comment:Specimen slightly he molyzed. Hemolysis may affect result. Chloride 108 98 - 109 mmol/L 07/23/2023 5:39 PM [facility] CO2 16(L) 20 - 29 mmol/L 07/23/2023 5:39 PM [facility] Anion Gap 12 6 - 16 mmol/L 07/23/2023 5:39 PM [facility] Calcium 9.8 8.4 - 10.4 mg/dL 07/23/2023 5:39 PM [facility] BUN 17 7 - 26 mg/dL 07/23/2023 5:39 PM [facility] Creatinine 0.96 0.73 - 1.18 mg/dL 07/23/2023 5:39 PM [facility] Glucose 98 70 - 100 mg/dL 07/23/2023 5:39 PM T [facility] Comment:The given reference range is for the fasting state. Non-fasting reference range for glucose is 70 - 180 mg/dL. 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 Methamphetamine use disorder, severe, dependence (HRC) Alcohol use disorder, severe, dependence (HRC) Sedative, hypnotic or anxiolytic use disorder, severe, dependence (HRC) Pain Generalized pain Chronic pain syndrome * Plan of Care - Ellie Aguilar RN - 08/23/2023 1:36 PM CDT [facility] Discharge Note - Nursing Admission Date/Time: 07/20/2023 [...] Report --- * Plan of Care - Ahmet Mora Sebastien, MOBILE APPLICATION ENGINEER, CLAIMS COORDINATOR - 08/23/2023 12:33 PM CDT [facility] Social Work Discharge Note Admission Date/Time: 07/20/2023 3:13 PM Attending Practitioner: Jaden Wetzel PA-C County: [place] Insurance: [employer] Secondary Insurance: N/A Disposition: Home Address: [address] [place] [address] Expected Discharge Date/Time: 08/23/2023 14:00 Legal Status at Discharge: Voluntary per SOC SOC [facility] Transportation Arrangements: Transportation Provided By: Taxi Discharge Collateral Contact: Collateral Contacts: Implementation Architect Release of Information?: Yes (per SOC) Implementation Architect Name : Briseida Gupta Implementation Architect Implementation Architect Fax/Email: Briseida Gupta <[email or web address] Release of Information?: Yes (verbal) Family/Friend Contact Name: Catalina Alvarado -Mothers Family/Friend Contact or [phone] Other Contact Name : Salvatore Alvarado - Son Other Contact YASMEEN Services: YASMEEN assessment and Resources provided Discharge Safety Risk Assessed: Yes;Patient denied suicidal or homicidal ideations at discharge. SW reviewed safety plan and discussed crisis resources. Patient is at risk for rehospitalization if discharge plan is not followed. Discharge Summary: Coremaker Floor put call to pt's Briseida CARABALLO first thing this morning to connect on d/c meeting. Coremaker Floor also spoke with UT CM, Lexii, who understands limitations of pt's insurance. Coremaker Floor shared pt had planned to connect with his workers compensation defense attorney this morning however was already saying what his workers compensation defense attorney would share would not make a difference and he needs to get back to his 89 y/o mother's farm to help out. Lexii asked f hospital could make referral to [facility] OP program located [facility]. Coremaker Floor received call from Pattie with [employer] ([phone]) who shared she and her counterpart, Thelma ([phone]) are covering for pt's CD CM, Briseida and will be contacts for today. Coremaker Floor shared pt appropriate for d/c and typewriter assembly and parts inspector to make referral to [facility] who have OP YASMEEN programming andmay be able to work with pt's insurance. Pt signed DORA for [facility]. Coremaker Floor put out call to [facility] [phone] and connected with regional education coordinator, Giovanni Myers [phone]. Giovanni shared they would be able to provide services in some capacity to pt with Medicare only. Coremaker Floor reviewed need for him to follow up further with pt's OP team and relayed plans to CC team. Referral sent to Giovanni @ [facility] Finders: [email or web address] <[email or web address]> Thelma Akbar < >; Pattie Chirinos < >; Briseida Gupta <[email or web address]>; Lexii Mclain <[email or web address]> Coremaker Floor provided Lexii with contact for [place] at her request. Coremaker Floor met with pt on the unit who shared he refuses to complete MA amanda at this time as he does nottrust CM. Pt accepting of AA resources. Coremaker Floor put out call to pt's mother Catalina, who shared she is home all day and agrees with dc home today. Discharge Plan: Date/Time: 08/22 @ 1330 Location: [address] [place] [address] Transport: taxi NE Entrance will call unit upon arrival Medications: 2 week supply Injection/Clozaril: n/a Appts: WednesdayAugust 29 @ 11:00am [email or web address] [facility]: Star Blanton, HAM, INSPECTOR WREATH, PMHNP-BC [address] [place] [address] ?? [phone] -[facility] APPOINTMENT Date: August Time: 1:15pm Provider: Dr. Antoine Dhillon [facility] [address] [place] [address] Packet: Discharge Summary, Transfer Orders *Referral made to [facility] *AA mtg list printed See AVS for follow up. * Plan of Care - Anca Finney RN - 08/23/2023 10:45 AM CDT [facility] Plan of Care Note Assessment: General plan of care Plan: Will maintain safety and follow plan of care Subjective: My manager life insurance is supposed to call me and then [...] of Care - Kelin Quintero OTR/Sebastien - 08/23/2023 7:[address] [facility] Occupational Therapy Plan of Care Note Group [...] Signs/Symptoms) Goal: Improved Mood Symptoms (Psychotic Signs/Symptoms) [facility] Plan of Care Note Assessment: [...] complained to RN about this before today. plate furnace operator notified pry RNthat pt's concerns has been [...] Improved Mood Symptoms (Psychotic Signs/Symptoms) Outcome: Progressing [facility] Plan of Care Note Assessment: Mood Plan: [...] in Response to Life Stressors Outcome: Progressing [facility] Plan of Care Note Assessment: [...] Improved Mood Symptoms (Psychotic Signs/Symptoms) Outcome: Progressing [facility] Plan of Care Note Assessment: Mood Plan: [...] Plan of Care - Ana Rosa Ledezma RPh - 08/20/2023 11:41 AM CDT [facility] NE Floor Pharmacy Home Medication Review and Destruction ATTN Nursing: The patients home medications have been reviewed by the pharmacist and the following home medications have been destroyed per protocol: Comingled meds in 1 bottle Any questions or concerns please call Outpatient Pharmacy at [phone]. This destruction was authorized by Dr. Margaret Chin. * Plan of Care - Melissa Ryan RN - 08/20/2023 11:40 AM CDT Problem: Adult Behavioral Health Plan of Care Goal: Plan of Care Review Outcome: Progressing Goal: Absence of New-Onset Illness or Injury Outcome: Progressing Goal: Optimized Coping Skills in Response to Life Stressors Outcome: Progressing [facility] Plan of Care Note Assessment: [...] * Plan of Care - Mora Leo, MOBILE APPLICATION ENGINEER, [facility] - 08/20/2023 11:39 AM CDT [facility] Social Work Progress Note Data: Pt discussed in team this AM. Phone conference held today at 1030 AM. In attendance was SW, pt, CD commitment RASHMI Goins, and UT commitment RASHMI Franz. Coremaker Floor reviewed hospital's perspective that pt is ready for d/c. office 365 consultant expressed concern that pt has been unwilling to apply for MA and get into treatment due to spenddown. Cms hoping pt will allow them to at least start the MA process and he will get to choose later on togo through with process or not. Pt wants to have his workers compensation defense attorney over his commitment weigh in on the conditions of his SOC order and workers compensation defense attorney is out of the office until Wednesday. office 365 consultant are not agreeable to d/c today without CD portion of care in place. Pt shares he is willing to go to daily AA meetings. CM do not feel this will be enough to keep pt sober. Coremaker Floor again advocates pt needs to be given opportunity to succeed or fail in the community and that pt's SOC was a [facility] decision. Coremaker Floor reviewed there will likely need to be a compromise found as pt cannot stay in the hospital to get on MA, which he is not even agreeable to. Next course of best action appears to be allowing pt's atto rney to weigh in with hopes for d/c Wednesday afternoon once follow up meeting held. Coremaker Floor LVM for pt's mother, Catalina, indicating pt not d/c today as meeting needs to be held Wednesday.Coremaker Floor shared plans to call her back when d/c date available. Discharge Plan: Date/Time: [facility] Location: [address] [place] [id number] Transport: taxi NE Entrance will call unit upon arrival Medications: 2 week supply Injection/Clozaril: n/a Appts: WednesdayAugust 29 @ 11:00am [email or web address] [facility]: Star Blanton, DNP, INSPECTOR WREATH, PMHNP- [address] [place] [address] ?? [phone] [facility] AP[facility] Date: August Time: 1:15pm Provider: Dr. Antoine Dhillon [facility] [address] [place] [address] Packet: Discharge Summary, Transfer Orders Legal Status: SOC [facility] Collateral Contacts Collateral Contacts: Implementation Architect Release of Information?: Yes (per SOC) Implementation Architect Name : Briseida Gupta Implementation Architect Implementation Architect Fax/Email: Briseida Gupta <[email or web address] Release of Information?: Yes (verbal) Family/Friend Contact Name: Catalina Alvarado -Mothers Family/Friend Contact or [phone] Other Contact Name : Salvatore Alvarado - Son Other Contact Action Plans: Discharge Planning Plan: Expected Discharge Date/Time: 08/20/2023 13:00 Disposition: Home Location: [address] [place] [address] * Plan of Care - Isaura Portillo OTR/Sebastien - 08/20/2023 7:05 AM CDT [facility] Occupational Therapy Plan of Care Note Group Name Attendance Minutes Topic Movement/Exercise Absent/Refusal Activity Room/Group Life Skills/IM&R Attended 30 Art therapy Clinic Absent/Refusal Daily Group Total: 1 OT Evaluation Minutes: Evaluation: All OT Evaluations are found under Consults - OT Notes. Group Daily Assessment Sensory Items/Activities Offered: Tea Grooming: WNL Affect: Tense, Anxious Cognitive/Tracking: [place] Social Skills: Poor coping skills Work Skills: [...] Improved Mood Symptoms (Psychotic Signs/Symptoms) Outcome: Progressing [facility] Plan of Care Note Assessment: Disturbed thinking Plan: Monitor mood, thoughts, behavior. Inform patient of plan of care. Meds as ordered. Subjective: I won't be able to put patches on my back when I'm at home. Objective: Tom has been visible on the unit all shift. He is social with peers, controlled. Early in shift he had typewriter assembly and parts inspector apply the [place] ungt to his right [...] because of that and the phone issue. Coremaker Floor assured him that staff can check in the am. Coremaker Floor left VM for ADA Velazco. His phone seemed to be working later in shift, so he is relieved. He denied SI, HI, hallucinations. Compliant with meds at . Hoping for DC tomorrow. --- End of Report --- * Plan of Care - Mora Leo, MOBILE APPLICATION ENGINEER, CLAIMS COORDINATOR - 08/19/2023 12:58 PM CDT [facility] Social Work Progress Note Data: Pt discussed in team this AM. Team reviewed d/c tomorrow pending coordination. Coremaker Floor put call out to pt's mother Grace. Grace shared she is comfortable having pt home and works until noon and then can receive pt. Coremaker Floor put out call and email to pt's Briseida CARABALLO. Briseida shared concerns that pt d/c home with AA mtgs and psych f/up does not meet the terms of pt's SOC- left via VM. Coremaker Floor connected with Briseida late in the day d/t her schedule. Briseida wants pt to stay in hospital until he can be applied for MA, which she plans to do as per marketing team lead's order indicating she can do this with or without pt's approval. Coremaker Floor shared pt has been ready for placement for several days and nolonger meets criteria for hospitalization. Coremaker Floor shared a review of pt's SOC order which indicatespt to either participate in residential or OP YASMEEN tx and/or d/c with plan at the discretion of hospital team. Coremaker Floor shared team feels pt appropriate for d/c with AA and OP psych with plan to move inthis direction. CM listed several concerns including pt will relapse right away. Coremaker Floor advocated pt must be given the opportunity to exhibit stage of change level and that county went through with SOC without consulting with hospital and CM. Cm expressed understanding. Coremaker Floor offered conference call tomorrow with pt, SW, newly assigned CM and current CM Grace. Conference call planned for tomorrow at 1030 and d/c anticipated therafter via cab at noon to mom's. Legal Status: SOC [facility] Collateral Contacts Collateral Contacts: Implementation Architect Release of Information?: Yes (per SOC) Implementation Architect Name : Briseida Gupta Implementation Architect Implementation Architect Fax/Email: Briseida Gupta <[email or web address] Release of Information?: Yes (verbal) Family/Friend Contact Name: Catalina Alvarado -Mothers Family/Friend Contact or [phone] Other Contact Name : Salvatore Alvarado - Son Other Contact Action Plans: Discharge Planning Plan: Expected Discharge Date/Time: 09/04/2023 Disposition: Home Location: [address] [place] [address] * Plan of Care - Melissa Ryan [...] Bangura COTA/Sebastien - 08/19/2023 6:[address] [facility] Occupational Therapy Plan of Care Note Group [...] invested in task-based activities. He reminisces with typewriter assembly and parts inspector about raising his children, brightening in affect throughout. IMTIAZ [employer]- Pt. engaged in activity, good [...] Improved Mood Symptoms (Psychotic Signs/Symptoms) Outcome: Progressing [facility] Plan of Care Note Assessment: Disturbed thinking/Chronic [...] Yolande Escalante - 08/18/2023 1:47 PM CDT [facility] Social Work Progress Note Data: Patient case was discussed this morning in treatment team and typewriter assembly and parts inspector reviewed the patient chart notes from the previous evening. Patient was noted to have slept, attended groups on the unit, and was invested in groups. Coremaker Floor met with patient on the unit this morning. Patient relayed he was feeling okay today, he hadattempted to get himself in for therapy prior to this admission, but states no one was taking his insurance. Patient indicated a few places that he had already attempted to call, indicated would havethe TRANSPORT TECH call to see if they could find a therapist to take his insurance - patient agreeable and appreciative of this. Coremaker Floor left a message for patient mother with information that patient would likely be discharged this week. Asked for return call to discuss discharge planning with mother. Coremaker Floor sent an email to the patient CM with an update on the plan/discharge and will follow up withher again when we have a confirmed date. Legal Status: SOC [facility] Collateral Contacts Collateral Contacts: Implementation Architect Release of Information?: Yes (per SOC) Implementation Architect Name : Briseida Gupta Implementation Architect Implementation Architect Fax/Email: Briseida Gupta <[email or web address] Release of Information?: Yes (verbal) Family/Friend Contact Name: Catalina Alvarado -Mothers Family/Friend Contact or [phone] Other Contact Name : Salvatore Alvarado - [...] Improved Mood Symptoms (Psychotic Signs/Symptoms) Outcome: Progressing [facility] Plan of Care Note Assessment: General [...] Bangura COTA/L - 08/18/2023 7:[address] [facility] Occupational Therapy Plan of Care Note Group [...] with small group, supportive and encouraging manner. JERRY Maldonado 1:1 OT Assessment Minutes: 15 [...] Ferrari RN - 08/18/2023 3:06 AM CDT [facility] Plan of Care Note Assessment: [...] Smith RN - 08/17/2023 9:23 PM CDT [facility] Plan of Care Note Assessment: Plan of [...] Plan of Care - Mora Leo MSW, CLAIMS COORDINATOR - 08/17/2023 11:38 AM CDT [facility] Social Work Progress Note Data: Pt discussed in team this AM. Coremaker Floor put call out to pt's CM, Briseida, sharing pt to likely d/c later this week home with AA followup. CB requested. Coremaker Floor put out call to pt's mother, Briseida, and LVM requesting CB to coordinate d/c. Coremaker Floor checked in with pt today to review needing to hear from mom and CM to move forward with d/c home. Legal Status: SOC [facility] Collateral Contacts Collateral Contacts: Implementation Architect Release of Information?: Yes (per SOC) Implementation Architect Name : Briseida Gupta Implementation Architect Implementation Architect Fax/Email: Briseida Gupta <[email or web address]> Release of Information?: Yes (verbal) Family/Friend Contact Name: Catalina Alvarado -Mothers Family/Friend Contact or [phone] Other Contact Name : Salvatore Alvarado - Son Other Contact Action Plans:YASMEEN tx Plan: Expected Discharge Date/Time: 09/04/2023 MH Disposition: YASMEEN Treatment Location: * Plan of Care - Mar Shanks RN - 08/17/2023 8:59 AM CDT [facility] Plan of Care Note Assessment: Altered thought [...] --- * Plan of Care - Kristin Bangura, MANUEL/Sebastien - 08/17/2023 7:[address] [facility] Occupational Therapy Plan of Care Note Group [...] thinking and positive interactions with peers/staff. JERRY MaldonadoS.- Pt.making positive comments throughout group. Spoke of [...] and reviewed all related documentation. IMTIAZ Vega/Sebastien 08/17/2023 2:57 PM * Plan of Care - Anca Finney RN - 08/17/2023 12:48 AM CDT [facility] Plan of Care [...] Smith RN - 08/16/2023 8:45 PM CDT [facility] Plan of Care Note Assessment: Plan of [...] Improved Mood Symptoms (Psychotic Signs/Symptoms) Outcome: Progressing [facility] Plan of Care Note Assessment: behavior, mood [...] according to his interpretation of conversation with [facility]. --- End of Report --- * Plan of Care - Mora Leo MSW, JASS - 08/16/2023 9:40 AM CDT [facility] Social Work Progress Note Data: Pt discussed in team this AM. Coremaker Floor connected with Fela Larson who confirms they cannot accept pt within [place] due to pt having Medicare. Coremaker Floor sent email to pt's RASHMI, Briseida Gupta asking if there is any [facility] assistance available, etc. Coremaker Floor met with pt on the unit to review treatment limitations. Coremaker Floor reviewed his Medicare would only cover 80 % of tx costs. Pt states he cannot afford to pay 20%. He is wanting to resume AA mtgs from mom's home. Coremaker Floor shared plans to call mom. Briseida sent typewriter assembly and parts inspector [facility] assistance form which typewriter assembly and parts inspector assisted pt in completing. Grace later sharedpt would need to apply for MA and be willing to pay a [place]; which he historically has not agreed to. Legal Status: SOC [facility] Collateral Contacts Collateral Contacts: Implementation Architect Release of Information?: Yes (per SOC) Implementation Architect Name : Briseida Gupta Implementation Architect Implementation Architect Fax/Email: Briseida Gupta <[email or web address]> Release of Information?: Yes (verbal) Family/Friend Contact Name: Catalina Alvarado -Mothers Family/Friend Contact or [phone] Other Contact Name : Salvatore Alvarado - Son Other Contact Action Plans:YASMEEN tx Plan: Expected Discharge Date/Time: 09/04/2023 Disposition: YASMEEN Treatment Location: * Plan of Care - Shivani Ryan OTR/Sebastien - 08/16/2023 7:[address] [facility] Occupational Therapy Plan of Care Note Group [...] Movement/Exercise. * Plan of Care - Naida Chne RN - 08/15/2023 11:13 PM CDT [facility] Plan of Care Note Assessment: [...] Improved Mood Symptoms (Psychotic Signs/Symptoms) Outcome: Progressing [facility] Plan of Care Note Assessment: mood, behavior, [...] Arias RN - 08/15/2023 6:31 AM CDT [facility] Plan of Care Note Assessment: Plan of [...] Improved Mood Symptoms (Psychotic Signs/Symptoms) Outcome: Progressing [facility] Plan of Care Note Assessment: Disturbed thinking [...] neck(07/15) andback (05/15) pain. Compliant with meds. --- End of Report --- * Plan of Care - Eric Holliday RN - 08/14/2023 10:37 AM CDT Problem: Mood Impairment (Psychotic Signs/Symptoms) Goal: Improved Mood Symptoms (Psychotic Signs/Symptoms) Outcome: Progressing [facility] Plan of Care Note Assessment: mood, behavior, [...] was asleep at the start of the [facility] shift lead. Pt woke up and requested for med's [...] Improved Mood Symptoms (Psychotic Signs/Symptoms) Outcome: Progressing [facility] Plan of Care Note Assessment: Disturbed thinking/Chronic [...] Goal: Improved Mood Symptoms (Psychotic Signs/Symptoms) Outcome: [facility] Plan of Care Note Assessment: mood, behavior, [...] --- * Plan of Care - Kelin Qunitero OTR/Sebastien - 08/13/2023 7:[address] [facility] Occupational Therapy Plan of Care Note Group Name Attendance Minutes Topic Movement/Exercise Activity Room/Group Attended 30 Utilized fabiana sin, Utilized [employer] Life Skills/IM&R Absent/Refusal Clinic Attended 45 Daily [...] to attending treatment and therapy. Expresses to typewriter assembly and parts inspector that he struggles with drinking and later shares that his son while he was in treatment. 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 Thelma Worthy, OTR/L 1:1 OT Assessment Minutes: Topic: Comments: Sensory [...] Goal: Plan of Care Review Outcome: Progressing [facility] Plan of Care Note Assessment: Plan of [...] Plan of Care - Mora Leo MSW, CLAIMS COORDINATOR - 08/12/2023 9:48 AM CDT [facility] Social Work Progress Note Data: Pt discussed in team this AM. Coremaker Floor put out call to Fela Lakhani Ph: Office w/ [place] intake and was connected to [employer] who states Fela is no longer with [place] and she will be point of contact. She asked typewriter assembly and parts inspector send last 3 days of notes and she will review with her dried yeast supervisor today. Coremaker Floor states pt ready for assessment at any time Legal Status: SOC [facility] Collateral Contacts Collateral Contacts: Implementation Architect Release of Information?: Yes (per SOC) Implementation Architect Name : Briseida Gupta Implementation Architect Implementation Architect Fax/Email: Briseida Gupta <[email or web address]> Release of Information?: Yes (verbal) Family/Friend Contact Name: Catalina Alvarado -Mothers Family/Friend Contact or [phone] Other Contact Name : Salvatore Alvarado - Son Other Contact Action Plans:YASMEEN tx Plan: Expected Discharge Date/Time: 09/04/2023 Disposition: Location: Addendum 3 PM Pt accepted at [facility] later in the afternoon and that assessment not needed because of the records typewriter assembly and parts inspector sent. Coremaker Floor met with pt on the unit who was happy to hear this and agreeable. Sandra @ [place] calls typewriter assembly and parts inspector a bit later stating they actually no not accept pts insurance but can complete a rule 24 to see if he qualifies for the OO span. Sandra completed this with pt over the phone a bit later and believes pt is overcome by $6k and does not qualify. Pt no longer discharging to tomorrow. * Plan of Care - Renetta Emery, IMTIAZ/Sebastien - 08/12/2023 6:[address] [facility] Occupational Therapy Plan of Care Note Group [...] participation throughout PM coffee shop session. Renetta Emery OTR/L 1:1 OT Assessment Minutes: 15 Topic: [...] Chen RN - 08/12/2023 12:18 AM CDT [facility] Plan of Care Note Assessment: [...] Goal: Plan of Care Review Outcome: Progressing [facility] Plan of Care Note Assessment: Alteration in [...] MSW, JASS - 08/11/2023 8:59 AM CDT [facility] Social Work Progress Note Data: Pt discussed in team this AM. Coremaker Floor sent records to Marsha Lakhani <[email or web address]>; [employer] <[email or web address]> as requested. Legal Status: SOC [facility] Collateral Contacts Collateral Contacts: Implementation Architect Release of Information?: Yes (per SOC) Implementation Architect Name : Briseida Gupta Implementation Architect Implementation Architect Fax/Email: Briseida Gupta <[email or web address]> Release of Information?: Yes (verbal) Family/Friend Contact Name: Catalina Alvarado -Mothers Family/Friend Contact or [phone] Other Contact Name : Salvatore Alvarado - Son Other Contact Action Plans:YASMEEN tx Plan: Expected Discharge Date/Time: 09/04/2023 Disposition: Location: * Plan of Care - Jesika Welch RN - 08/11/2023 8:49 AM CDT Problem: Mood Impairment (Psychotic Signs/Symptoms) Goal: Improved Mood Symptoms (Psychotic Signs/Symptoms) Outcome: Progressing [facility] Plan of Care Note Assessment: Calm, cooperative [...] * Plan of Care - Kelin Quintero OTR/L - 08/11/2023 7:[address] [facility] Occupational Therapy Plan of Care Note Group [...] was asleep at the start of the veterinary hospital shift lead. Pt woke up and requested for medications [...] Goal: Plan of Care Review Outcome: Progressing [facility] Plan of Care Note Assessment: Alteration in [...] Plan of Care - Mora Leo MSW, CLAIMS COORDINATOR - 08/10/2023 11:22 AM CDT [facility] Social Work Progress Note Data: Pt discussed in team this AM. Coremaker Floor put email out to [facility] requesting follow up on referral sent Wednesday. Coremaker Floor asked if theywill be able to complete YASMEEN assessment today or tomorrow. Legal Status: SOC [facility] Collateral Contacts Collateral Contacts: Implementation Architect Release of Information?: Yes (per SOC) Implementation Architect Name : Briseida Gupta Implementation Architect Implementation Architect Fax/Email: Briseida Gupta < > Release of Information?: Yes (verbal) Family/Friend Contact Name: Catalina Alvarado -Mothers Family/Friend Contact or [phone] Other Contact Name : Salvatore Alvarado - Son Other Contact Action Plans:YASMEEN tx Plan: Expected Discharge Date/Time: 09/04/2023 MH Disposition: Location: * Plan of Care - Jesika Welch, RN - 08/10/2023 10:20 AM CDT Problem: Mood Impairment (Psychotic Signs/Symptoms) Goal: Improved Mood Symptoms (Psychotic Signs/Symptoms) Outcome: [facility] Plan of Care Note Assessment: Calm, preoccupied [...] (Adult) Goal: Plan of Care Review Outcome: [facility] Plan of Care Note Assessment: Sleep Plan: Pt will sleep > 5 hrs. Subjective: NA Objective: Pt appeared to have slept through most of the night. Pt c/o trouble staying asleep and receive PRN benadryl and Zyprexa. no incident. 15 min checks ongoing. --- End of Report --- * Plan of Care - RupertStewartbri Muñoz, OTR/L - 08/10/2023 7:[address] [facility] Occupational Therapy Plan of Care Note Group [...] pain to join session. With encouragement from typewriter assembly and parts inspector and peers, joined movement game; brightenedwith good engagement throughout movement session. During AM OT clinic, demonstrated independent work skills and good follow-through. Shared that patient had concerns about managing physical pain without preferred pain medication, added that [facility] physicians are offering helpful advice. The doctors here are actually really good. Excellent participation during PM life skills session. Bright andengaged. IMTIAZ Vega/Sebastien 1:1 OT Assessment Minutes: 15 Topic: Grooming [...] and reviewed all related documentation. IMTIAZ Vega/Sebastien 42:35 PM * Plan of Care - Kristin Bangura COTA/L - 08/10/2023 6:[address] [facility] Occupational Therapy Plan of Care Note Group [...] of New-Onset Illness or Injury Outcome: Progressing [facility] Plan of Care Note Assessment: General [...] Plan of Care - Mora Leo MSW, CLAIMS COORDINATOR - 08/09/2023 10:51 AM CDT [facility] Social Work Progress Note Data: Pt discussed in team this AM. Coremaker Floor reviewed pt's chart from the weekend. Coremaker Floor has made referralto [facility] requesting YASMEEN assessment genet. Legal Status: SOC [facility] Collateral Contacts Collateral Contacts: Implementation Architect Release of Information?: Yes (per SOC) Implementation Architect Name : Briseida Gupta Implementation Architect Fax/Email: Briseida Gupta <[email or web address]> Release of Information?: Yes (verbal) Family/Friend Contact Name: Catalina Alvarado -Mothers Family/Friend Contact or [phone] Other Contact Name : Salvatore Alvarado - Son Other Contact Action Plans:YASMEEN tx Plan: Expected Discharge Date/Time: 09/04/2023 Disposition: Location: * Plan of Care - Kelin Quintero, OTR/L - 08/09/2023 8:55 AM CDT [facility] Occupational Therapy Plan of Care Note Group Name Attendance Minutes Topic Movement/Exercise Activity Room/Group Attended 30 Utilized fabiana sin, Utilized porch Life Skills/IM&R Attended 60 (Calendar) Clinic Attended 60 Daily Group Total: 3 OT Evaluation Minutes: Evaluation: All OT Evaluations are found under Consults - OT Notes. Group Daily Assessment Sensory Items/Activities Offered: Grooming: WNL Affect: WNL Cognitive/Tracking: [place] Social Skills: WNL Work Skills: WNL Investment/Participation: [...] 0100. * Plan of Care - Ruthie Myres RN - 08/08/2023 9:26 PM CDT Pt [...] for PRN Benadryl, Olanzapine and Acetaminophen for 6 pain at 0056. Patient sleeping shortly after. [...] and social with other peers. 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 Pt makes his needs known. * Plan of Care - Mora Leo MSW, LICSW - 08/06/2023 12:01 PM CDT [facility] Social Work Progress Note Data: Pt discussed in team this AM. SOC order received. Order indicated pt to comply with any and all treatment recommendations including successful participation in and completion of outpatient chemical dependency an/or mental health treatment depending on the recommendations of the treatment team. SOClasts for 6 months Coremaker Floor checked in with pt that referral sent yesterday to [facility]. Legal Status: SOC [facility] Collateral Contacts Collateral Contacts: Other Contact 1, Family/Friend Release of Information?: Yes (verbal) Family/Friend Contact Name: Catalina Alvarado -Mothers Family/Friend Contact or [phone] Other Contact Name : Salvatore Alvarado - Son Other Contact Action Plans:YASMEEN tx Plan: Expected Discharge Date/Time: 09/04/2023 Disposition: Location: * Plan of Care - Maria E Epps RN - 08/06/2023 9:27 AM CDT [facility] Plan of Care Note Assessment: disturbed thought [...] will not use xanax when he leaves [facility]. Legal Status: probate court hold Orders Placed [...] Forte OTR/Sebastien - 08/06/2023 7:[address] [facility] Occupational Therapy Plan of Care Note Group Name Attendance Minutes Topic Movement/Exercise Attended 30 Movement Game Activity Room/Group Life Skills/IM&R Absent/Refusal Clinic Attended 60 Daily Group Total: 2 OT Evaluation Minutes: Evaluation: All OT Evaluations are found under Consults - OT Notes. Group Daily Assessment Sensory Items/Activities Offered: Grooming: WNL Affect: [place], Brightens with activity Cognitive/Tracking: Appeared to be (see comment), [place], Fluctuating attention span (lost in thought at [...] Head RN - 08/05/2023 6:40 PM CDT [facility] Plan of Care Note Assessment: Altered thought [...] when he discharges to help him sleep. Coremaker Floor told him that it's addictive and not a good idea to do this. He said Well, should Isuffer from not sleeping the rest of my life? Gave him prn ibuprofen with his HS meds. He didn't want his desowen cream at bedtime. --- End of Report --- * Plan of Care - Mora Leo MSW, JASS - 08/05/2023 9:19 AM CDT [facility] Social Work Progress Note Data: Pt discussed in team this AM. Coremaker Floor facilitated final hearing today at 0900. Pt offered SOC during hearing. Pt's workers compensation defense attorney shared pt will be under SOC for 6 months and I expected to go to treatment. She shared this means no alcohol, no meth, no threats of suicide or self harm. Pt was provided education on the revocation process by workers compensation defense attorney as well. Pt will not have [place] order under SOC. Hospital now awaiting SOC order. Coremaker Floor met with pt afterwards. Pt motivated to get into YASMEEN treatment directly from hospital. Coremaker Floor sent chemical health assessment requested to [place] at [facility] <[email or web address]>. Legal Status: [facility] Petition for [place] CD with ITP [facility] Final: 08/04 [email or web address] [email or web address] [id number] Passcode: [id number] Collateral Contacts Collateral Contacts: Other Contact 1, Family/Friend Release of Information?: Yes (verbal) Family/Friend Contact Name: Catalina Alvarado -Mothers Family/Friend Contact or [phone] Other Contact Name : Salvatore Alvarado - Son Other Contact Action Plans:court process Plan: Expected Discharge Date/Time: 08/06/2023 Disposition: Location: * Plan of Care - Ellie Aguilar RN - 08/05/2023 8:12 AM CDT [facility] Plan of Care Note Assessment: Plan of [...] Portillo OTR/L - 08/05/2023 6:[address] [facility] Occupational Therapy Plan of Care Note Group [...] attended to conversation but made minimal contributions. Renetta Emery OTR/L 1:1 OT Assessment Minutes: Topic: Comments: Sensory [...] Mendes RN - 08/04/2023 6:38 PM CDT [facility] Plan of Care Note Problem: Mood Impairment [...] Improved Mood Symptoms (Psychotic Signs/Symptoms) Outcome: Progressing [facility] Plan of Care Note Assessment: Calm, cooperative [...] Plan of Care - Mora Leo MSW, CLAIMS COORDINATOR - 08/04/2023 9:28 AM CDT [facility] Social Work Progress Note Data: Pt discussed in team this AM. Pt scheduled for final hearing tomorrow at 0900 via [employer]. Legal Status: [facility] Petition for UT CD with [facility] Final: 08/04 [email or web address] ID: [id number] Passcode: [id number] Collateral Contacts Collateral Contacts: Other Contact 1, Family/Friend Release of Information?: Yes (verbal) Family/Friend Contact Name: Catalina Alvarado -Mothers Family/Friend Contact or [phone] Other Contact Name : Salvatore Alvarado - Son Other Contact Action Plans:court process Plan: Expected Discharge Date/Time: 08/06/2023 Disposition: Location: * Plan of Care - Renetta Emery OTR/Sebastien - 08/04/2023 6:[address] [facility] Occupational Therapy Plan of Care Note Group [...] his kids. Limited work on selected task. Kristin Bangura, MANUEL/L Good effort to participate in PM OT [...] Goal: Plan of Care Review Outcome: Progressing [facility] Plan of Care Note Assessment: Plan of [...] Plan of Care - Mora Leo MSW, CLAIMS COORDINATOR - 08/03/2023 8:46 AM CDT [facility] Social Work Progress Note Data: Pt discussed in team this AM. Coremaker Floor met with pt on the unit. Pt appeared irritable with typewriter assembly and parts inspector that typewriter assembly and parts inspector has not read the apparent exam statement written up by [facility] examiner. Pt asked for his workers compensation defense attorney's number to dispute examiner's report. Number provided for Ying Garciadenis . Pt appreciative. Legal Status: [facility] Petition for UT CD with ITP [facility] Final: 08/04 [email or web address] ID: [phone] Passcode: [id number] Collateral Contacts Collateral Contacts: Other Contact 1, Family/Friend Release of Information?: Yes (verbal) Family/Friend Contact Name: Catalina Alvarado -Mothers Family/Friend Contact or [phone] Other Contact Name : Salvatore Alvarado - Son Other Contact Action Plans: petition for commitment Plan: Expected Discharge Date/Time: 08/06/2023 Disposition: Location: * Plan of Care - Kristin Bangura COTA/L - 08/03/2023 7:12 AM CDT [facility] Occupational Therapy Plan of Care [...] with select peers. Modified exercises when needed. JERRY Maldonado- Pt.social, reports enjoys being outdoors in the sunshine. 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 Pt. reports has had a problem with sleep ( lack of)since his early 20. Kristin BrionesShalom JERRY Bangura 1:1 OT Assessment Minutes: 15 Topic: Grooming [...] Mccall RN - 08/03/2023 6:27 AM CDT [facility] Plan of Care Note Assessment: Altered sleep Plan: Pt will sleep through the night. Subjective: N/A Objective: Pt appears to have slept through the night. No behaviors or safety concerns noted. Every15 minute safety check done. --- End of Report - * Plan of Care - Tanna Lackey RN - 08/02/2023 5:57 PM CDT [facility] Plan of Care Note Assessment: impaired mood; [...] Denied SI, HI, AH, VH. Patient told typewriter assembly and parts inspector about the various surgeries and injuries he has had in his life. Coremaker Floor asked if these injuries were in the [...] Aquino COTA/L - 08/02/2023 7:[address] [facility] Occupational Therapy Plan of Care Note Group Name Attendance Minutes Topic Movement/Exercise Attended 30 Movement/Exercise Activity Room/Group Life Skills/IM&R Attended 60 Teamwork/team building Clinic Attended 60 Daily Group Total: 3 OT Evaluation Minutes: Evaluation: All OT Evaluations are found under Consults - OT Notes. Group Daily Assessment Sensory Items/Activities Offered: Tea Grooming: WNL Affect: Brightens with activity Cognitive/Tracking: [place] Social Skills: Mainly interacted with staff, Receptive [...] Jarquin RN - 08/01/2023 10:37 PM CDT [facility] Plan of Care Note Assessment: Altered mental [...] neck pain is not bad today. Attended Bingo. Behavior controlled. Ate 100% of his dinner. [...] Jarquin RN - 07/31/2023 10:35 PM CDT [facility] Plan of Care Note Assessment: Altered mental [...] Goal: Improved Mood Symptoms (Psychotic Signs/Symptoms) Outcome: [facility] Plan of Care Note Assessment: Patient has [...] Jarquin RN - 07/30/2023 11:03 PM CDT [facility] Plan of Care Note Assessment: Altered mental [...] MSW, JASS - 07/30/2023 1:19 PM CDT [facility] Social Work Progress Note Data: Pt discussed in team this AM. Pt going through court process for commitment. Coremaker Floor met with pt on the unit to sign DORA's for [place] [facility]. Pt open to signing releases however does not want this to indicate he has to go to treatment. He relayed that he is at this time interested in treatment. Coremaker Floor to make referrals. Legal Status: [facility] Petition for UT CD with [facility] Final: 08/04 [email or web address] ID: [id number] Passcode: [id number] Collateral Contacts Collateral Contacts: Other Contact 1, Family/Friend Release of Information?: Yes (verbal) Family/Friend Contact Name: Catalina Alvarado -Mothers Family/Friend Contact or [phone] Other Contact Name : Salvatore Alvarado - Son Other Contact Action Plans: petition for commitment Plan: Expected Discharge Date/Time: 08/06/2023 Disposition: Location: * Plan of Care - Ashleigh Mcnamara RN - 07/30/2023 11:26 AM CDT Problem: Mood Impairment (Psychotic Signs/Symptoms) Goal: Improved Mood Symptoms (Psychotic Signs/Symptoms) Outcome: Progressing [facility] Plan of Care Note Assessment: Patient has [...] of Care - Isaura Portillo OTR/L - 07/30/2023 7:[address] [facility] Occupational Therapy Plan of Care Note Group Name Attendance Minutes Topic Movement/Exercise Attended 30 Sensory Cards Activity Room/Group Life Skills/IM&R Attended 60 Clinic Attended 60 Daily Group Total: 3 OT Evaluation Minutes: Evaluation: All OT Evaluations are found under Consults - OT Notes. Group Daily Assessment Sensory Items/Activities Offered: Hot beverage Grooming: Fair attention to grooming Affect: Slight range Cognitive/Tracking: [place], Distractible Social Skills: WNL Work Skills: WNL [...] Jarquin RN - 07/29/2023 10:54 PM CDT [facility] Plan of Care Note Assessment: Altered mental [...] Improved Mood Symptoms (Psychotic Signs/Symptoms) Outcome: Progressing [facility] Plan of Care Note Assessment: Calm, cooperative [...] Frost OTR/Sebastien - 07/29/2023 6:[address] [facility] Occupational Therapy Plan of Care Note Group [...] in conversation with peer, pleasant and social. MAR Maldonado/Sebastien 1:1 OT Assessment Minutes: 15 Topic: Grooming Comments: Pt. asking therapist if she noticed anything unusual outside by east parking ramp, pt. reported seeing a surveillance camera and that this camera is following his moves. Pt. stated, I'm not paranoid, but I guess I am a little paranoid. MAR Maldonado/Sebastien Sensory Assessment According to current staff observation, [...] Finney RN - 07/28/2023 5:59 PM CDT [facility] Plan of Care Note Assessment: General plan of care Plan: Will maintain safety and follow plan of care Subjective: I need to stay away from meth, but for alcohol, I don't have a problem with it, I haveit under control. Objective: Denies any pain, SI, and VH. Met with pt in alcove. Pt is unkempt, intense, animated, loud, tearful, [...] [facility] Plan of Care Note Assessment: Patient has [...] * Plan of Care - Renetta Bell, [facility] - 07/28/2023 12:33 PM CDT [facility] Social Work Progress Note Data: Pt [...] and did not contest the hold. His workers compensation defense attorney reports he has a warrantin [place] for 4th degree DUI and she's been in touch with the marketing team lead in [place] asking that it be quashed, as she doesn't want it to interfere in treatment planning. Additionally, she requested, andthe marketing team lead approved, that if pt is able to get to a treatment facility before his final hearing, he will be allowed to transfer. This will all be in the order that will be faxed to the unit. Legal Status: [facility] Petition for UT CD with [facility] Final: 08/04 [email or web address] ID: [id number] Passcode: [id number] Collateral Contacts Collateral Contacts: Other Contact 1, Family/Friend Release of Information?: Yes (verbal) Family/Friend Contact Name: Catalina Alvarado -Mothers Family/Friend Contact or [phone] Other Contact Name : Salvatore Alvarado - [...] Bangura COTA/L - 07/28/2023 6:[address] [facility] Occupational Therapy Plan of Care Note Group [...] Comments: Social with peers. Pleasant manner overall. Kelin Quintero, OTR/L Clinic- Pt. in good spirits, friendly and [...] He was very grateful. Father Ahsan Vizcarra, [employer] Consultant * Plan of Care - Ashleigh Mcnamara [...] Stressors Outcome: Progressing Goal: Develops/Participates in Therapeutic [place] to Support Successful Transition Outcome: Progressing [facility] Plan of Care Note Assessment: Patient has [...] * Plan of Care - Mora Leo, MOBILE APPLICATION ENGINEER, [facility] - 07/27/2023 9:55 AM CDT [facility] Social Work Progress Note Data: Pt discussed in team this AM. Coremaker Floor checked in with pt on the unit to review prelim hearing scheduled for 07/27 @ 1 PM. Pt aware.Pt somewhat brief and dismissive. Coremaker Floor put email out to [email or web address]> with Dionicio Blair SS to confirm zoom link for tomorrow's hearing. Cc'd coverage SW. Legal Status: [facility] Petition for UT CD with ITP [facility] Pre-trial: 07/27 @ 1 PM Final: 08/04 Collateral Contacts Collateral Contacts: Other Contact 1, Family/Friend Release of Information?: Yes (verbal) Family/Friend Contact Name: Catalina Alvarado -Mothers Family/Friend Contact or [phone] Other Contact Name : Salvatore Alvarado - Son Other Contact Action Plans: petition for commitment Plan: Expected Discharge Date/Time: 08/06/2023 Disposition: Location: * Plan of Care - Mely Frost OTR/Sebastien - 07/27/2023 6:[address] [facility] Occupational Therapy Plan of Care Note Group [...] animated in clinic group inconversation with peer Gabriela about work and other similarieties. When peer is not interacting with patient, pt is calm controlled and focused. MAR Raya/Sebastien Patient expressed concern about having memory issues [...] Jarquin RN - 07/26/2023 10:40 PM CDT [facility] Plan of Care Note Assessment: Altered mental [...] him tomorrow (Wednesday, 07/26). Father Ahsan Vizcarra, [employer] Consultant * Plan of Care - Cece Trujillo RN - 07/26/2023 11:04 AM CDT Problem: Mood Impairment (Psychotic Signs/Symptoms) Goal: Improved Mood Symptoms (Psychotic Signs/Symptoms) Outcome: Progressing [facility] Plan of Care Note Assessment: anxiety Plan: Monitor for signs and symptoms of anxiety and medicate as needed. Provide interaction with ptto build trust. Encourage pt to verbalize concerns. Continue to assess and document. Discussed planof care with patient, provider, and manager social responsibility. Subjective: Pt stated Any way I can [...] MSW, JASS - 07/26/2023 9:07 AM CDT [facility] Social Work Progress Note Data: Pt discussed in team this AM. Coremaker Floor reviewed pt's chart from the weekend. Pt has hearing scheduledfor 07/27 @ 1 PM for civil commitment petition. Legal Status: [facility] Petition for UT CD with ITP [facility] Pre-trial: 07/27 @ 1 PM Final: 08/04 Collateral Contacts Collateral Contacts: Other Contact 1, Family/Friend Release of Information?: Yes (verbal) Family/Friend Contact Name: Catalina Alvarado -Mothers Family/Friend Contact or [phone] Other Contact Name : Salvatore Alvarado - Son Other Contact Action Plans: petition for commitment Plan: Expected Discharge Date/Time: 08/06/2023 Disposition: Location: * Plan of Care - Kristin Bangura COTA/L - 07/26/2023 7:[address] [facility] Occupational Therapy Plan of Care Note Group [...] to be utilizing some techniques.) JERRY Maldonado LShalomSShalom- pleasant and social manner with peers, tracking, [...] Goal: Plan of Care Review Outcome: Progressing [facility] Plan of Care Note Assessment: Plan [...] plan of care with patient, provider, and manager social responsibility. Subjective: Pt stated I took that zyprexa [...] Goal: Plan of Care Review Outcome: Progressing [facility] Plan of Care Note Assessment: Plan of [...] Omalley RN - 07/24/2023 10:33 AM CDT [facility] Plan of Care Note Assessment: Altered thought [...] Goal: Plan of Care Review Outcome: Progressing [facility] Plan of Care Note Assessment: Plan of [...] Improved Mood Symptoms (Psychotic Signs/Symptoms) Outcome: Progressing [facility] Plan of Care Note Assessment: Patient has [...] Care - Mora Leo MSW, JASS - 07/23/2023 8:40 AM CDT [facility] Social Work Progress Note Data: Pt discussed in team this AM. Email received back from < > prior tohold expiration [facility] states [facility] is supporting petition and all documents have been filed with thecourts. She will email typewriter assembly and parts inspector copy of probate court hold order. Coremaker Floor put out call to pt's mother, Catalina ([phone]) to review [facility]'s support of petition. She is happy to hear this. Coremaker Floor shared plans to call her early next week. Coremaker Floor met with pt on the unit to review supported petition. Coremaker Floor shared court date on Wednesday and gave pt his copy of petition pwk. Pt accepting of information. Legal Status: [facility] Petition for [place] CD with ITP [facility] Pre-trial: 07/29 @ 1 PM Collateral Contacts Collateral Contacts: Other Contact 1, Family/Friend Release of Information?: Yes (verbal) Family/Friend Contact Name: Catalina Alvarado -Mothers Family/Friend Contact or [phone] Other Contact Name : Salvatore Alvarado - Son Other Contact Action Plans: petition for commitment Plan: Expected Discharge Date/Time: 08/06/2023 Disposition: Location: * Plan of Care - Thelma Aquino COTA/Sebastien - 07/23/2023 7:[address] [facility] Occupational Therapy Plan of Care Note Group [...] Quintero OTR/Sebastien - 07/23/2023 6:[address] [facility] OT Initial Assessment Diagnosis: No diagnosis found. Patient Data on File [id number] 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 * Plan of Care - Anca Finney RN - 07/22/2023 4:56 PM CDT [facility] Plan of Care Note Assessment: General plan [...] [facility] Plan of Care Note Assessment: plan of care Plan: Provide interaction with pt to build trust. Encourage pt to verbalize concerns. Continue to assess and document. Discussed plan of care with patient, provider, and manager social responsibility. Subjective: Pt stated I'd like to get [...] Care - Mora Leo MSW, JASS - 07/22/2023 9:39 AM CDT [facility] Social Work Progress Note Data: Pt discussed in team this AM. Coremaker Floor put out call to pt's mother, Catalina ([phone]). Catalina is in support of petition for commitment. Coremaker Floor submitted petition for commitment to Dionicio Blair . Coremaker Floor called in petition and was instructed to email petition to [facility] < > < >; [email or web address] < >. Coremaker Floor sent records for review due to tight hold. Coremaker Floor sent follow up email to Dionicio Lee . Legal Status: 72 hour hold expires on 07/22 @ 1212 PM Collateral Contacts Collateral Contacts: Other Contact 1, Family/Friend Family/Friend Contact Name: Carlos Alvarado - Parents Family/Friend Contact or [phone] Other Contact Name : Salvatore Alvarado - Son Other Contact Action Plans: petition for commitment Plan: Expected Discharge Date/Time: 08/06/2023 Disposition: Location: Addendum: Coremaker Floor called [employer]ionicio BLAIR PPS back and spoke with Briseida rachel. Briseida confirms receipt of petition and that she has already tried to call pt but he refused to speak to her. Briseida states she also has tried to call mom but mom did not answer. Coremaker Floor emailed her son, Salvatore, #. Coremaker Floor sent additional records from pt's time on S[facility] at [facility]. * Plan of Care - Isaura Portillo OTR/Sebastien - 07/22/2023 7:[address] [facility] Occupational Therapy Plan of Care Note Group [...] Finney RN - 07/21/2023 4:20 PM CDT [facility] Plan of Care Note Assessment: General plan of care Plan: Will maintain safety and follow plan of care Subjective: right now, I'm being cautious, with the way things got this time, somebody could have Objective: Pt on unit, socializing with peers. Reports constant VH. Answered questions about CD tx,Suboxone and Naltrexone. Pt says the only way he can get so respite from and AH is using ETOH and Xanax, [...] --- * Plan of Care - Cece Trujillo, LAVERN - 07/21/2023 9:41 AM CDT Problem: Mood Impairment (Psychotic Signs/Symptoms) Goal: Improved Mood Symptoms (Psychotic Signs/Symptoms) Outcome: Progressing [facility] Plan of Care Note Assessment: plan of care Plan: Provide interaction with pt to build trust. Encourage pt to verbalize concerns. Continue to assess and document. Discussed plan of care with patient, provider, and manager social responsibility. Subjective: Pt stated I just don't know [...] Barnard OTR/Sebastien - 07/21/2023 8:[address] [facility] Occupational Therapy Plan of Care Note Group [...] * Initial Assessments - Mora Leo MSW, CLAIMS COORDINATOR - 07/21/2023 8:50 AM CDT [facility] Social Work Initial Assessment Admission Date/Time: 07/20/2023 3:13 PM Age: 57 y.o. Attending Practitioner: Kristin Rutledge PA-C County: [place] Admitting Diagnosis: No diagnosis found. Reason for admit: Nicanor Alvarado is a 57 y.o. male who has been admitted to [facility] inpatient Mental Health. The patient is [...] He was stabilized medically and transferred to [facility] for psychiatric stabilization. Legal Status: On Admission: Voluntary Current: 72 hour hold Committed: No Current Order Received in Chart: n/a Legal Issues: DUI in Living Situation: Parents Alternative Decision Maker: No Collateral Contacts Collateral Contacts: Other Contact 1, Family/Friend Family/Friend Contact Name: Carlos Alvarado - Parents Family/Friend Contact or [phone] Other Contact Name : Salvatore Alvarado - Son Other Contact Financial Insurance: [employer] Secondary Insurance: N/A Employment/Income: Psychiatric/Substance Use Disorder/Medical History Patient endorses a past psychiatric diagnosis of Bipolar I Disorder, Schizophrenia and Major Depressive Disorder. Patient's chart review notes a history of inpatient psychiatric admissions in the past. Most recent admissions were 05/07/23-05/10/23 on [facility], 09/10/2015 to 09/18/2015 ([place] [address]) and 09/23/2015- 10/07/2015 ([facility]). Patient endorses regular use of Methamphetamine and Xanax in which hepurchases online. Please refer to H&P for medical summary. Data Coremaker Floor met with pt on the unit. Coremaker Floor introduced self and explained SW role. Pt [...] community provider, does not identify as having UT, No readiness to engage in treatment) UT Treatment Recommendations for Inpatient/Outpatient: Development of recovery [...] Rutledge PA-C - 07/20/2023 4:40 PM CDT [facility] DEPARTMENT OF PSYCHIATRY PROVIDER RELATIONS REPRESENTATIVE INTAKE Nicanor Alvarado Admission Date and Time: [...] medications and ordered Seroquel 100mg po TID, [id number] po TID, Zyprexa 10mg po BID PRN, and CIWA protocol w PRN Valium and PRN Clonidine. See attending team's Admission Note for further history, diagnosis and treatment planning. Milieu Management: Admit to: NE4 Legal: 72 hour hold History of Present Illness Nicanor Alvarado is a 57 y.o. male who has been admitted to [facility] inpatient Mental Health. The patient is [...] He was stabilized medically and transferred to [facility] for psychiatric stabilization. Today, although paranoid, he [...] Ferrari RN - 07/20/2023 4:29 PM CDT [facility] Plan of Care Note Assessment: Alteration in [...] plan of care with patient, provider, and manager social responsibility. Subjective: Pt stated I didn't try to [...] and stated he drinks 14 shots of Propeller[employer] connor liquor a day. Pt signed DORA [...] spasms, Starting on Wed07/21/23 at 1703, Until 07/24/23 at 1637, Indications: Muscle Spasm Given 07/24/2023 [...] Sleep, Starting on Wed07/23/23 at 1701, Until 07/25/23 at 1452 Given 07/24/2023 9:53 PM CDT 50 mg Given 07/24/2023 2:10 AM CDT 50 mg Given 07/23/2023 9:33 PM CDT 50 mg diphenhydrAMINE (BENADRYL) capsule 50 mg 50 mg, Oral, HS PRN, Itching, Rash, Starting on 07/25/23 at 1450, Until Wed07/26/23 at 1452 Given [...] 1 Patch, Transdermal, DAILY, First dose on 08/11/23 at 1245, Until Discontinued, Apply patch to [...] DAILY, First dose (after last modification) on 07/26/23 at 1315, Until Discontinued, Apply patch to [...] DAILY, First dose (after last modification) on Bhavna 08/12/23 at 0900, Until Discontinued, Tablet may be [...] Wed07/26/23 at 2100, Until Discontinued, Indications: SCAD Given 08/22/2023 8:19 PM CDT 800 mg Given 08/21/2023 8:15 PM CDT 800 mg Given 08/20/2023 8:33 PM CDT 800 mg senna (SENOKOT) tablet 2 Tablet 2 Tablet, Oral, BID PRN, Constipation, No stool in the last day, Starting on Tu07/20/23 at 1618, Until Wed08/23/23 at 1538, Cumulative [...] mg, Oral, QDAY PC, First dose on 07/24/23 at 1700, Until Discontinued, Swallow whole. Do [...] RN) 08 (Given - Provider: Melissa Ryan RN)1344 (Given - Provider: Melissa Ryan, LAVERN)2018 (Given - Provider: Kortney Greenfield RN) 08 (Given - Provider: Anca Finney RN) amitriptyline [...] 08 (Given - Provider: Melissa Ryan RN) 0811 (Given - Provider: Anca Finney RN) aspirin [...] 170 (Given - Provider: Kortney Greenfield RN) 171 (Given - Provider: Kortney Greenfield RN) desonide (DESOWEN) 0.05 % cream Topical, BID, First dose on Wed07/28/23 at 2100, Apply topically to (specify site) affected skin on face. Hazardous waste disposal required. 0858 (Given - Provider: Melissa Ryan RN)2053 (Not Given - Provider: Kortney Greenfield RN - Reason: Patient/family refused) 08 (Given - Provider: Melissa Ryan RN)2047 (Not [...] 08 (Given - Provider: Anca Finney RN) gabapentin (NEURONTIN) capsule 1,200 mg 1,200 mg, Oral, TID, First dose (after last modification) on Wed07/26/23 at 2100, Until Discontinued, Indications: RLS / chronic pain 0859 (Given - Provider: Melissa Ryan RN)134 (Given - Provider: Melissa Ryan RN)2013 (Given - Provider: Kortney Greenfield RN) 0808 (Given - Provider: Melissa Ryan RN)134 (Given - Provider: Melissa Ryan RN)2018 (Given - Provider: Kortney Greenfield RN) 0812 (Given - Provider: Anca Finney RN) lidocaine [...] 0746 (Patch Removed - Provider: Anca Finney RN)0812 (Patch Applied - Provider: Anca Finney RN)2011 [...] 0900 (Given - Provider: Melissa Ryan RN) 08 (Given - Provider: Melissa Ryan RN) 08 (Given - Provider: Anca Finney RN) pantoprazole [...] the capsule. 0900 (Given - Provider: Melissa Ryan RN) 0808 (Given - Provider: Melissa Ryan RN) 08 (Given - Provider: Anca Finney RN) thiamine (VITAMIN B-1) tablet 100 mg 100 mg, Oral, DAILY, First dose (after last modification) on Wed07/21/23 at 0900, Until Discontinued 0900 (Given - Provider: Melissa Ryan, LAVERN) 0808 (Given - Provider: Melissa Ryan, LAVERN) 0812 (Given - Provider: Anca Finney RN) PRN Medication Order 08/21/2023 08/22/2023 08/23/2023 acetaminophen (TYLENOL) tablet 1,000 mg 1,000 mg, Oral, DAILY PRN, Pain/Fever, Starting on Wed08/11/23 at 0643, Until Wed08/23/23 at 1538 0413 (Given - Provider: Caridad Neves, LAVERN)0856 (Canceled Entry - Provider: Melissa Ryan RN) [...] Stomach, Starting on Wed07/20/23 at 1612, Until Wed08/23/23 at 1538, For [...] Oral, DAILY PRN, Other, sleep, Starting on 07/27/23 at 1306, Until Wed08/23/23 at 1538, May [...] Oral, Q1H PRN, Smoking Cessation, Starting on Tu07/20/23 at 1618, Until 08/23/23 at 1538, Give gum as first line. [...] Dependence documented in this encounter Care Teams Public Health Dentist Relationship Specialty Start Date End Date Briana Vazquez PA-C [address] [place] [address] PCP - General Physician [employer] Operator 11/29/19 documented as of this encounter
--- NOTE | 2023-11-09 05:56 | CRLHL7_ITS ---
For Patients: As a result of the 21st Century Cures Act, medical imaging exams and procedure reports are released immediately into your electronic medical record. You may view this report before your referring provider. If you have questions, please contact your health care provider. INDICATION: Distress breathing, abdominal distention. COMPARISON: 03/11/2023 TECHNIQUE: CT chest, abdomen, and pelvis without contrast. Multiplanar axial, coronal, and sagittal reformats are included. MIP images to improve detection of pulmonary nodules are included. Intravenous contrast: None. FINDINGS: CHEST Airway: Normal caliber trachea. Mild central bronchial wall thickening. Lungs: Mild respiratory motion. Tree-in-bud nodularity primarily in the bases. Few scattered small irregular ground-glass and subsolid opacities. Patchy peribronchial consolidations in both lung bases. At least 1 stable nodule in the left lower lobe. Pleura: No pleural effusion. No pneumothorax. Lymph nodes: No thoracic adenopathy. Mediastinum: No pneumomediastinum. No mass. Heart and great vessels: No pericardial effusion. Normal cardiac chamber size. No substantial atherosclerotic plaques. No aortic aneurysm. Significantly dilated main pulmonary artery. Chest wall: Normal. No masses. ABDOMEN AND PELVIS Liver: Normal noncontrast appearance of the liver. The liver is not enlarged or cirrhotic. No steatosis. Gallbladder and bile ducts: Normal gallbladder. No bile duct dilation. Pancreas: Normal. Spleen: Mildly enlarged spleen measures 15 centimeters and is similar compared to prior. Adrenal glands: Normal. Kidneys: Normal parenchyma. Small left renal cyst. No calculi. No urinary tract dilation. Urinary bladder: Urinary bladder is moderately distended. Pelvis: No cyst or mass. Vessels: Minimal atherosclerotic vascular calcifications at the aortic bifurcation. Bowel: No dilated or inflamed bowel. Diverticulosis without diverticulitis appendix not definitely seen. Yxar-ce-rsocoxvk stool burden. Lymph nodes: No adenopathy. Peritoneum: No ascites. Abdominal wall: Umbilical hernia repair without recurrent hernia. BONES: L4 through S1 posterior instrumented fusion. Operative level laminectomy. Bone graft harvest site posterior iliac bones. No hardware complication seen. No focal bone lesions. IMPRESSION: 1. Infectious distal airways disease and multifocal bronchopneumonia. Recommend follow-up chest CT in 3 months to ensure resolution of the nodular components. 2. Moderately distended urinary bladder. 3. Dilated pulmonary artery may reflect underlying pulmonary hypertension. Please note that all CT scans at this facility use dose modulation, iterative reconstruction, and/or weight-based dosing when appropriate to reduce radiation dose to as low as reasonably achievable. Dictated by Kyleigh Hancock MD @ 11/09/2023 7:09:46 AM (Electronically Signed)
[2023-11-09] MEDS: 0.9 % SODIUM CHLORIDE 250 ml 250 ML IV (06:02)
--- NOTE | 2023-11-09 06:10 | PC.NURSE ---
When nurse in room adjusting bipap settings pt requested to be left alone, repeatedly saying Can you leave. Appeared agitated, moved IV pole in front of face.
[2023-11-09 06:32] LABS: Albumin* 3.6 g/dL (3.3-5.0)
[2023-11-09 06:35] LABS: Alanine Aminotransferase* 48 U/L (4-50); Alkaline Phosphatase* 61 U/L (40-150); Aspartate Amino Transferase* 51 U/L (12-35); Bilirubin Direct* 0.4 mg/dL (0.0-0.5); Bilirubin Total* 0.7 mg/dL (0.1-1.5); Total Protein* 6.4 g/dL (6.0-8.3)
[2023-11-09 06:44] LABS: Amphetamine Screen Urine Negative (Negative); Barbiturate Screen Urine Negative (Negative); Benzodiazepines Screen Urine POSITIVE (Negative); Cannabinoid Screen Urine Negative (Negative); Cocaine Screen Urine POSITIVE (Negative); Methadone Screen Urine Negative (Negative); Methamphetamines Screen Urine Negative (Negative); Opiate Screen Urine Negative (Negative); Oxycodone Screen Urine Negative (Negative); Phencyclidine Screen Urine Negative (Negative); Tricyclic Antidepressant Urine POSITIVE (Negative)
--- NOTE | 2023-11-09 06:51 | PC.NURSE ---
Pt returned from CT, Bipap left off as pt. sats 97% on oxymask 15L. Pt. states he wants to try and sleep. Requesting PRN Issa.
[2023-11-09 06:54] LABS: pH VBG 7.351 (7.32-7.43)
[2023-11-09 06:55] LABS: PCO2 VBG 63 mmHG (40-50); PO2 VBG < 30.1 mmHG (25-47)
[2023-11-09 06:56] LABS: HCO3 VBG 35 mmol/L (21-28)
[2023-11-09] MEDS: cefTRIAXone 1 GM in 0.9 % SODIUM CHLORIDE Mini-bag 100 ML IVPB (07:50)
[2023-11-09 08:41] LABS: Troponin I* < 0.01 ng/mL (0.01-0.04)
[2023-11-09] MEDS: 0.9 % SODIUM CH + KCL 20 mEq/L 1,000 ML 100 ML IV (10:50)
[2023-11-09] MEDS: PIPERACILLIN/TAZOBACTAM 3.375 GM in 0.9 % SODIUM CHLORIDE Mini-bag 100 ML IVPB ×3 (11:25→23:02)
[2023-11-09 11:34] LABS: Procalcitonin* 0.07 ng/mL (<0.50)
[2023-11-09] MEDS: LIDOCAINE 5% PATCH 1 PATCH TRANSDERMA (11:39)
[2023-11-09] MEDS: GABAPENTIN 600 MG TABLET 1200 MG PO ×3 (11:40→20:29)
[2023-11-09] MEDS: ROPINIROLE HCL 1 MG TABLET 2 MG PO ×2 (11:45→21:32)
[2023-11-09 11:56] LABS: Legionella pneumo Ag Urine L. pneumo Negative (Negative); S pneumo Ag Urine S. pneumo Negative (Negative)
--- NOTE | 2023-11-09 13:32 | P.IMHP_ITS ---
Hospitalist- H&P: HPI History of Present Illness Date Seen: 11/09/23 Chief complaint: Short of breath Narrative: Nicanor Alvarado is a 57 year old male past medical history significant for hypertension, hyperlipidemia, GERD, CKD, chronic pain, alcohol dependence, methamphetamine/substance dependence, PTSD, schizophrenia is admitted to the medical floor from the ED for further management acute hypoxic respiratory failure. Patient has been a current resident at [facility] treatment for alcohol. Awoke around midnight, breathing heavily. Was brought to the ED by his mother for concern of shortness of breath. Was complaining of chest pain on arrival, which he says recurs. Took 2 Xanax prior to arrival and remains quite drowsy from this. Reported to have coughed up black stuff but denies any vomiting or further coughing of dark or bloody sputum. Also reported is some blood at the nare (known cocaine use). No reported fevers. On arrival to the ED, oxygen saturations noted is 75%. VBG CO2 initially 69. Patient was placed on BiPAP. Received IV Lasix. Weaned to high-flow prior to arrival to the floor. CT of the chest showing bronchopneumonia as well as suspected pulmonary edema. Patient reports using cocaine yesterday, snorting. Suspicion for patient aspirating, causing flash pulmonary edema, pneumonia. On arrival to the floor, patient is placed on high-flow per respiratory therapy. Currently denies headache or dizziness. Currently denies chest pain but tells me it will likely recur as it is chronic. Denies nausea. Remains drowsy, likely secondary to taking 2 Xanax overnight. Review of Systems Narrative: REVIEW OF SYSTEMS: Complete review of systems performed and negative unless otherwise stated in HPI or below. 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) ?F15.21 - Other stimulant dependence, in remission (ICD-10) Allergic rhinitis ?J30.9 - Allergic rhinitis, unspecified (ICD-10) Seborrheic dermatitis ?L21.9 - Seborrheic dermatitis, unspecified (ICD-10) Chronic pain of both shoulders ?M25.511 - Pain in right shoulder (ICD-10) ?M25.512 - Pain in left shoulder (ICD-10) ?G89.29 - Other chronic pain (ICD-10) BPH (benign prostatic hyperplasia) ?N40.0 - Benign prostatic hyperplasia without lower urinary tract symptoms (ICD-10) Spondylosis of cervical spine with radiculopathy (09/06/19) ?M47.22 - Other spondylosis with radiculopathy, cervical region (ICD-10) Restless legs syndrome ?G25.81 - Restless legs syndrome (ICD-10) Posttraumatic stress disorder ?F43.10 - Post-traumatic stress disorder, unspecified (ICD-10) Photokeratitis of both eyes (07/31/18) ?H16.133 - Photokeratitis, bilateral (ICD-10) Insomnia ?G47.00 - Insomnia, unspecified (ICD-10) Hypogonadism in male ?E29.1 - Testicular hypofunction (ICD-10) History of traumatic rupture of spleen ?Z87.828 - Personal history of other (healed) physical injury and trauma (I CD-10) History of psychoactive substance use disorder ?Z87.898 - Personal history of other specified conditions (ICD-10) History of migraine ?Z86.69 - Personal history of other diseases of the nervous system and sense organs (ICD-10) History of gastroesophageal reflux (GERD) ?Z87.19 - Personal history of other diseases of the digestive system (ICD-10) History of alcohol dependence ?F10.21 - Alcohol dependence, in remission (ICD-10) Genital herpes simplex ?A60.00 - Herpesviral infection of urogenital system, unspecified (ICD-10) Gastroesophageal reflux disease (05/16/01) ?K21.9 - Gastro-esophageal reflux disease without esophagitis (ICD-10) Erectile dysfunction ?N52.9 - Male erectile dysfunction, unspecified (ICD-10) 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 - Nightmare disorder (ICD-10) Surgical History H/O umbilical hernia repair (09/27/23) ?Z98.890 - Other specified postprocedural states (ICD-10) ?Z87.19 - Personal history of other diseases of the digestive system (ICD-10) History of arthroscopy of right shoulder (01/13/23) ?Z98.890 - Other specified postprocedural states (ICD-10) S/P arthroscopy of right shoulder (02/11/22) ?Z98.890 - Other specified postprocedural states (ICD-10) History of spinal surgery (1999) ?Z98.890 - Other specified postprocedural states (ICD-10) Status post right rotator cuff repair ?Z98.890 - Other specified postprocedural states (ICD-10) History of surgery on arm ?Z98.890 - Other specified postprocedural states (ICD-10) H/O left wrist surgery ?Z98.890 - Other specified postprocedural states (ICD-10) History of fusion of lumbar spine ?Z98.1 - Arthrodesis status (ICD-10) History of cervical spinal arthrodesis (2019) ?Z98.1 - Arthrodesis status (ICD-10) History of bunionectomy of right great toe (10/27/04) ?Z98.890 - Other specified postprocedural states (ICD-10) Social History Narrative: Lives with mother (Kathy Alvarado - medical decision maker if needed). Single, 2 kids, one son committed suicide, non-smoker, ETOH overuse (24 beers in one sitting most days of the week). Requesting Full Code status. What is your current living situation?: I presently have a place to live Problems where you live: no known problems Problems where you live details: no known problems In the past 12 months, utilities in danger of being shut off: no In past 12 months, lack of transportation kept you from medical appts, meetings, work, or getting things needed for daily living: no In the past 12 mos, have been you worried that your food would run out before you had money to buy more?: never true In the past 12 mos, the food you bought just didn't last and you didn't have money to buy more?: never true Highest level of school completed/degree received: high school graduate Smoking Status: Former smoker Do you use any of these nicotine containing products: None Second hand tobacco smoke exposure: No How often do you have a drink containing alcohol: never How many standard drinks containing alcohol do you have on a typical day: 10 or more How often do you have six or more drinks on one occasion: Daily or almost daily AUDIT-C Alcohol total score: 8 Non-prescribed substance use: denies use Non-prescribed substance use details: pt denied use, pt states he is in treatment here in [facility]. Has interlock system on vehicle. Pt has history of ETOH and drug (amphetamine/methamphetamine) use. History of PTSD, Paranoia. Caffeine: Yes How often does anyone, including family, friends and others, physically hurt you : never How often does anyone, including family, friends and others, insult or talk down to you: never How often does anyone, including family, friends and others, threaten you with harm: never How often does anyone, including family, friends and others, scream or curse at you: never Little interest or pleasure in doing things: more than half the days Feeling down, depressed, or hopeless: more than half the days service: No Meds Home Medications and Allergies Home Medications ?Medication ?Instructions ?Recorded ?Confirmed ?Type trazodone 100 mg tablet 200 mg PO QHS 03/11/23 11/09/23 History amlodipine 5 mg tablet 5 mg PO HS 09/24/23 11/09/23 History methocarbamol 750 mg tablet 750 mg PO Q8H PRN 09/24/23 11/09/23 History omeprazole 20 mg capsule,delayed 20 mg PO DAILY 09/24/23 11/09/23 History release propranolol 20 mg tablet 20 mg PO BID 10/01/23 11/09/23 History alprazolam 1 mg tablet 1 mg PO HS 11/09/23 11/09/23 History atorvastatin 20 mg tablet 20 mg PO HS 11/09/23 11/09/23 History diclofenac sodium 75 mg 75 mg PO BID PRN severe pain 11/09/23 11/09/23 History tablet,delayed release gabapentin 400 mg capsule 1,200 mg PO TID 11/09/23 11/09/23 History metoprolol succinate 100 mg 100 mg PO DAILY 11/09/23 11/09/23 History capsule sprinkle, ext. release 24 hr nystatin 100,000 unit/mL oral 5 ml PO QID 11/09/23 11/09/23 History suspension olanzapine 20 mg tablet 20 mg PO HS 11/09/23 11/09/23 History prazosin 2 mg capsule 2 mg PO HS 11/09/23 11/09/23 History tamsulosin 0.4 mg capsule (Flomax) 0.4 mg PO DAILY 11/09/23 11/09/23 History Allergies Allergy/AdvReac Type Severity Reaction Status Date / Time valproic acid AdvReac Intermediate excessive Verified 10/01/23 11:04 sedation naltrexone AdvReac Unknown Verified 10/01/23 11:04 Exam Narrative: Exam Narrative: PHYSICAL EXAM General: Drowsy, answering questions, drifting off to sleep, otherwise NAD HEENT: Normocephalic, atraumatic, sclera white, EOMI, oral mucosa moist Cardiovascular: RRR, S1S2. No pitting edema Pulmonary: Coarse breath sounds throughout, currently on high-flow Abdominal: Soft, distended (which he remarks is normal), nontender Neurological: Answering questions appropriately, cranial nerves intact, no focal findings Extremities: No gross joint deformity or swelling. AROMI. Neurovascularly intact Skin: Warm, dry. Const: Vital Signs, click to edit/add: Vital Signs - 24 hr 11/09/23 03:10 11/09/23 03:57 11/09/23 03:57 Temperature 98.5 F Pulse Rate Pulse Rate [Pulse Oximeter] 87 Respiratory Rate 28 H Blood Pressure Blood Pressure [Le ft Upper Arm] 139/81 Blood Pressure [Ri ght Arm] Pulse Oximetry 75 L 92 92 Oxygen Delivery Me thod Room Air OxyMask Oxygen Flow Rate 12 Fraction of Inspir ed Oxygen 11/09/23 04:21 11/09/23 06:45 11/09/23 07:19 Temperature 98.5 F Pulse Rate 100 Pulse Rate [Pulse Oximeter] 87 70 Respiratory Rate 20 24 Blood Pressure 113/74 Blood Pressure [Le ft Upper Arm] 137/81 111/82 Blood Pressure [Ri ght Arm] Pulse Oximetry 95 97 97 Oxygen Delivery Me thod OxyMask OxyMask Oxygen Flow Rate 12 15 Fraction of Inspir ed Oxygen 11/09/23 07:20 11/09/23 07:30 11/09/23 07:31 Temperature Pulse Rate 101 H 100 99 Pulse Rate [Pulse Oximeter] Respiratory Rate Blood Pressure 126/79 Blood Pressure [Le ft Upper Arm] Blood Pressure [Ri ght Arm] Pulse Oximetry 97 95 96 Oxygen Delivery Me thod Oxygen Flow Rate Fraction of Inspir ed Oxygen 11/09/23 07:45 11/09/23 07:47 11/09/23 08:00 Temperature Pulse Rate 96 95 91 Pulse Rate [Pulse Oximeter] Respiratory Rate Blood Pressure 114/81 Blood Pressure [Le ft Upper Arm] Blood Pressure [Ri ght Arm] Pulse Oximetry 95 96 93 Oxygen Delivery Me thod Oxygen Flow Rate Fraction of Inspir ed Oxygen 11/09/23 08:02 11/09/23 08:15 11/09/23 08:17 Temperature Pulse Rate 91 90 89 Pulse Rate [Pulse Oximeter] Respiratory Rate Blood Pressure 99/64 102/62 Blood Pressure [Le ft Upper Arm] Blood Pressure [Ri ght Arm] Pulse Oximetry 94 93 93 Oxygen Delivery Me thod Oxygen Flow Rate Fraction of Inspir ed Oxygen 11/09/23 09:07 11/09/23 09:07 11/09/23 10:00 Temperature 98.5 F 98.5 F Pulse Rate Pulse Rate [Pulse Oximeter] 87 91 Respiratory Rate 24 24 24 Blood Pressure Blood Pressure [Le ft Upper Arm] Blood Pressure [Ri ght Arm] 122/81 117/84 Pulse Oximetry 92 93 95 Oxygen Delivery Me thod Nasal Cannula Nasal Cannula OxyM ask Nasal Cannula OxyM ask Oxygen Flow Rate 3.5 3.5 3.5 Fraction of Inspir ed Oxygen 11/09/23 10:07 11/09/23 10:30 11/09/23 10:30 Temperature Pulse Rate Pulse Rate [Pulse Oximeter] Respiratory Rate 24 Blood Pressure Blood Pressure [Le ft Upper Arm] Blood Pressure [Ri ght Arm] Pulse Oximetry 94 94 Oxygen Delivery Me thod Nasal Cannula OxyM ask Oxygen Flow Rate 3.5 Fraction of Inspir ed Oxygen 40 11/09/23 10:36 11/09/23 11:30 11/09/23 12:00 Temperature 98.5 F Pulse Rate 88 88 Pulse Rate [Pulse Oximeter] 95 Respiratory Rate 24 Blood Pressure Blood Pressure [Le ft Upper Arm] Blood Pressure [Ri ght Arm] 132/83 Pulse Oximetry 95 Oxygen Delivery Me thod Nasal Cannula OxyM ask Oxygen Flow Rate 4.5 Fraction of Inspir ed Oxygen 40 11/09/23 13:16 Temperature 98.5 F Pulse Rate Pulse Rate [Pulse Oximeter] 96 Respiratory Rate 24 Blood Pressure Blood Pressure [Le ft Upper Arm] Blood Pressure [Ri ght Arm] Pulse Oximetry 95 Oxygen Delivery Me thod Nasal Cannula OxyM ask Oxygen Flow Rate 4.5 Fraction of Inspir ed Oxygen 40 Hospitalist - H&P: Result Labs Labs: Short CBC 11/09/23 Range/Units 03:19 WBC 13.11 H (4.50-11.00) K/uL Hgb 16.6 (13.5-17.5) gm/dL Hct 52.8 (37.0-53.0) % Plt Count 154 (140-440) K/uL BMP 11/09/23 03:19 Sodium 137 Potassium 3.6 Chloride 99 Carbon Dioxide 34 H BUN 26 Creatinine 2.5 H Glucose 124 H Calcium 9.0 Cardiac Enzymes 11/09/23 11/09/23 Range/Units 03:30 06:31 Troponin I < 0.01 L < 0.01 L (0.01-0.04) ng/mL Liver Function 11/09/23 Range/Units 03:30 Total Bilirubin 0.7 (0.1-1.5) mg/dL Direct Bilirubin 0.4 (0.0-0.5) mg/dL AST 51 H (12-35) U/L ALT 48 (4-50) U/L Alkaline Phosphatase 61 (40-150) U/L Albumin 3.6 (3.3-5.0) g/dL Assessment and Plan Assessment and plan (1) Respiratory failure: Problem comment: Acute hypoxic respiratory failure in setting of pneumonia. Oxygen saturation 75% in ED. Required BiPAP, transition to high-flow. CCU status for now Respiratory therapy for pulmonary support, wean oxygen as able Echocardiogram March 2023 shows normal left ventricular size, mildly increased wall thickness, normal global systolic function, EF 64%, no stenosis, moderate regurgitation Status: Acute (2) Pneumonia: Problem comment: CT shows infectious distal airways disease and multifocal bronchopneumonia. Suspected aspiration in setting of nasal cocaine use. Leukocytosis with left shift, lactate 0.8, procalcitonin 0.07, CRP 0.9 Received 1 dose ceftriaxone in ED Initiate Zosyn Respiratory therapy for pulmonary support Recommend follow-up chest CT in 3 months to ensure resolution Status: Acute (3) Pulmonary edema: Problem comment: CT shows dilated pulmonary artery suspicious for underlying pulmonary hypertension. Query flash pulmonary edema secondary to nasal cocaine use BNP 23, troponin <0.01 Continue Lasix 40 mg IV daily, monitoring I&Os Status: Acute (4) Chronic renal failure: Problem comment: Creatinine 2.5, recent baseline 2.5-3.5. Had been recommended that he follow up with Nephrology following his last hospitalization in March 2023. No follow through Status: Acute (5) Continuous illicit drug use: Problem comment: Actively using cocaine, last yesterday 11/07. History of methamphetamine use. Monitor for withdrawals Status: Acute (6) Alcohol dependence: Problem comment: Has been in a day program. Tells me his last use was a few months ago History of 24 beers per day Status: Acute (7) Primary hypertension: Problem comment: Continue home medications Status: Acute (8) Mixed hyperlipidemia: Problem comment: Continue home medications Status: Acute (9) Schizophrenia: Problem comment: [facility]. Continue home medications Status: Chronic (10) Chronic pain of both shoulders: Problem comment: Tylenol, ice/heat, lidocaine patch. Avoid narcotics. No NSAIDs given CKD Status: Acute (11) Restless legs syndrome: Problem comment: Continue home medication Status: Chronic Plan Upon arrival to the floor, patient has asked several times when he will be discharge. History of requests to leave AMA. Total Time Spent Total Time Spent: Total time spent caring for the patient today was 75 minutes. This includes time spent for the visit reviewing the chart, time spent during the visit, time spent after the visit and documentation and planning in coordination of care.
--- NOTE | 2023-11-09 15:55 | PC.SOCIAL ---
Discharge planning: railroad yard worker attempted to meet with the pt this afternoon around 3pm. Pt was sleeping and would not wake to this worker's voice. railroad yard worker will attempt to meet with pt again tomorrow. Social work to follow-up as needed.
[2023-11-09] MEDS: VANCOMYCIN 2 GM/400 ML 2 GM/400 ML PIGGYBACK IVPB (17:44)
--- NOTE | 2023-11-09 18:00 | PC.NURSE ---
End of shift note: patient up to the floor at 0825, patient a/o x4, pleasant and cooperative w/cares and answers questions by senior medical writer appropriately. VSS, afebrile this shift. Patient on 3.5-4.5 NC until 1600, RT switched patient over to Bipap. Patient currently sating at 97% on Bipap. Patient's breathing pattern is non-labored when asleep but noted to become SOB with minimal exertion. IV in left FA, running 0.9% sodium Chlor + KCL at 100ms/hr, asymptomatic and patent. Patient tolerating a reg. diet. Patient is SBA to BR and up to chair or at bedside for meals. Patient sleeping more than one hour throughout shift but easily arousable by name. Lidocaine patch applied to lower back for chronic pain. Patient's BP has been running a little soft since 1599 but patient is asymptomatic, MD Red notified. Patient needed a breaK from the Bipap at 1815, he stated he was beginning to feel claustrophobic, Oncology Patient Navigator switched patient over to 4.5 L NC.
[2023-11-09] MEDS: ATORVASTATIN 10 MG TABLET 20 MG PO (20:28)
[2023-11-09] MEDS: ENOXAPARIN 30 MG/0.3ML INJ SUBCUT (20:29)
[2023-11-09] MEDS: QUETIAPINE 100 MG TABLET 800 MG PO (20:29)
[2023-11-09] MEDS: OLANZapine 5 MG TAB.RAPDIS 20 MG PO (20:31)
[2023-11-09] MEDS: AMLODIPINE 5 MG TABLET PO (20:32)
[2023-11-09] MEDS: PRAZOSIN HCL 1 MG CAPSULE 2 MG PO (21:31)
[2023-11-09] MEDS: TRAZODONE HCL 50 MG TABLET 200 MG PO (21:32)
[2023-11-09] MEDS: PROPRANOLOL 20 MG TABLET PO (21:33)
[2023-11-10] VITALS (9 sets, daily range): BP systolic 87–128; BP diastolic 54–82; PULSE 77–92; RESP 12–26; TEMP 36.4–36.7; O2SAT 90–97
[2023-11-10] MEDS: ALPRAZolam 0.25 MG TABLET 1 MG PO (01:27)
[2023-11-10] MEDS: 0.9 % SODIUM CH + KCL 20 mEq/L 1,000 ML 100 ML IV (01:32)
[2023-11-10] MEDS: IPRAT-ALBUT 0.5-2.5 MG/3 ML NEB 1 NEB IH (01:50)
[2023-11-10] MEDS: PIPERACILLIN/TAZOBACTAM 3.375 GM in 0.9 % SODIUM CHLORIDE Mini-bag 100 ML IVPB (04:47)
[2023-11-10 06:17] LABS: Hematocrit 45.9 % (37.0-53.0); Hemoglobin* 14.4 gm/dL (13.5-17.5); Mean Corpuscular HGB Conc 31 gm/dL (32-36); Mean Corpuscular Hemoglobin 29 pg (26-34); Mean Corpuscular Volume 92 fL (80-100); PCO2 VBG 49 mmHG (40-50); Platelet Count* 137 K/uL (140-440); Red Blood Count 4.97 m/uL (4.30-5.90); White Blood Count* 8.43 K/uL (4.50-11.00); pH VBG 7.404 (7.32-7.43)
[2023-11-10 06:18] LABS: HCO3 VBG 30 mmol/L (21-28)
[2023-11-10 06:22] LABS: Slide Review Reflex No
--- NOTE | 2023-11-10 06:43 | PC.NURSE ---
19-07: pleasant. Tolerates BiPAP for 1-2hrs at a time. Pt woke up around 0130 with nonproductive cough, BiPAP was removed, audible wheeze at this time and RR in the 30s. Updated [email or web address] Tele Doc, obtained order for DuoNeb. After DuoNeb administration, pt felt some relief. Wheeze was still present after admin, encouraged deep breathing exercises frequently. Digital Imaging Specialist late administered HS Xanax dose, given at 0130, senior mortgage underwriter held HS dose d/t administration of several other sedating medications at HS, RR 12-14 & O2 requirements at that time. Admin?d Xanax at 0127 d/t anxiety r/t coughing spell?& tachypnea, senior mortgage underwriter anticipated increased compliance with BiPAP after Xanax admin as well. Pts O2 sats 99-100% on BiPAP with FiO2 40%, updated [email or web address]- Titrated FiO2 to 30% per MD, pts sats remained >96%. Pt was requiring 3.5L O2 via NC at start of shift when not on BiPAP, was able to titrate to RA ? O2 Sats 88-92%. Occasionally pt would require O2 via NC to keep sats >88%. Tele = NSR. ?
[2023-11-10 06:57] LABS: Chloride* 105 mmol/L (96-114); Potassium* 4.1 mmol/L (3.6-5.1); Sodium* 138 mmol/L (135-149)
[2023-11-10 07:00] LABS: Anion Gap 4 mEq/L (7-15); Blood Urea Nitrogen* 16 mg/dL (7-30); Calcium* 8.6 mg/dL (8.4-10.6); Carbon Dioxide* 29 mmol/L (20-32); Creatinine* 1.1 mg/dL (0.5-1.5); Est. Creatinine Clearance* 83.73; Estimated Glomerular Filt Rate 78 ml/min; Glucose* 95 mg/dL (60-115)
[2023-11-10] MEDS: FUROSEMIDE 10 MG/ML inj 40 MG IVP (08:39)
[2023-11-10] MEDS: GABAPENTIN 600 MG TABLET 1200 MG PO (08:40)
[2023-11-10] MEDS: OMEPRAZOLE 20 MG CAPSULE DR PO (08:40)
[2023-11-10] MEDS: METOPROLOL SUCCINATE (XL) 100 MG TAB PO (08:40)
[2023-11-10] MEDS: ROPINIROLE HCL 1 MG TABLET 2 MG PO (08:40)
[2023-11-10] MEDS: TAMSULOSIN HCL 0.4 MG CAPSULE PO (08:40)
[2023-11-10] MEDS: PROPRANOLOL 20 MG TABLET PO (08:40)
--- NOTE | 2023-11-10 09:29 | P.DS_ITS ---
DS: Providers Provider Date Seen: 11/10/23 Date of admission: 11/09/23 10:39 Primary care physician: Brian Martínez MD Admitting Clinician: MD Ros[facility] Consults: 11/09/23 10:30 Consult to Respiratory Therapy [CONS] Routine Comment: Reason(s) for RT Consult:: Consult Consult to Production Cell Leader [CONS] Routine Comment: Reason for Consult:: Social Service Consult Attending Physician on discharge: ERIK Desir [facility] Date of Discharge: 11/10/23 DS: Diagnosis Discharge Diagnosis (1) Respiratory failure: Status: Resolved Problem details: Acute hypoxic respiratory failure in setting of pneumonia, pulmonary edema. Oxygen saturation 75% in ED. Required BiPAP, transitioned to high-flow and weaned to room air. Respiratory therapy consulted for pulmonary support. Echocardiogram March 2023 shows normal left ventricular size, mildly increased wall thickness, normal global systolic function, EF 64%, no stenosis, moderate regurgitation Would consider repeat echocardiogram if continues to use illicit drugs, intravenous methamphetamine or snorting cocaine (2) Pneumonia: Status: Acute Problem details: CT shows infectious distal airways disease and multifocal bronchopneumonia. Suspected aspiration pneumonia in setting of nasal cocaine use. Leukocytosis with left shift, lactate 0.8, procalcitonin 0.07, CRP 0.9. Strep pneumo/Legionella negative. Received 1 dose ceftriaxone in ED. initiated on Zosyn during hospital course. Discharged on oral Augmentin to complete 10 day therapy course. Respiratory therapy consulted for pulmonary support Recommend follow-up chest CT in 3 months to ensure resolution. Can be arranged with his PCP. Patient aware. (3) Pulmonary edema: Status: Acute Problem details: CT shows dilated pulmonary artery suspicious for underlying pulmonary hypertension. Query flash pulmonary edema secondary to nasal cocaine use BNP 23, troponin <0.01. Received IV Lasix. (4) Chronic renal failure: Status: Acute Problem details: Creatinine 2.5, recent baseline 2.5-3.5. Had been recommended that he follow up with Nephrology following his last hospitalization in March 2023. No follow through. Creatinine did improve to 1.1 following hydration, prior to discharge. Would still recommend outpatient follow up with Nephrology which can be arranged with his PCP. Patient aware. (5) Continuous illicit drug use: Status: Acute Problem details: Actively using cocaine, last 11/07. History of methamphetamine use. human services professional consulted for further resources. Patient plans to return to day treatment program (6) Alcohol dependence: Status: Acute Problem details: Has been in a day program, mandated, not voluntary per patient report. Tells me his last use was a few months ago History of 24 beers per day (7) Primary hypertension: Status: Acute Problem details: Continue home medications (8) Mixed hyperlipidemia: Status: Acute Problem details: Continue home medications (9) Schizophrenia: Status: Chronic Problem details: [facility]. Continue home medications (10) Chronic pain of both shoulders: Status: Acute Problem details: Tylenol, ice/heat, lidocaine patch. Avoid narcotics. No NSAIDs given CKD (11) Restless legs syndrome: Status: Chronic Problem details: Continue home medication DS: Summary Hospital Course Hospital Course: [age] year old male was admitted to the medical floor for acute hypoxic respiratory failure in setting of multilobar pneumonia and pulmonary edema. Course of care and details as noted above. Remainder of chronic medical comorbidities were monitored and managed with home medications. Status at Discharge Functional status at discharge: independent ambulation Overall status at discharge: patient is back to baseline Time Spent with Patient Time attestation: Total time spent providing and/or coordinating discharge services: Time spent: Greater than 30 minutes Exam Narrative: Exam Narrative: PHYSICAL EXAM General: Pleasant, conversant, NAD Cardiovascular: RRR Pulmonary: No dyspnea on room air, significantly improved breath sounds Neurological: Alert, answering questions appropriately Skin: Warm, dry. Const: Vital Signs, click to edit/add: Vital Signs - 24 hr 11/09/23 10:00 11/09/23 10:07 11/09/23 10:30 Temperature 98.5 F Pulse Rate Pulse Rate [Pulse Oximeter] 91 Respiratory Rate 24 Blood Pressure [Le ft Arm] Blood Pressure [Ri ght Arm] 117/84 Pulse Oximetry 95 94 Oxygen Delivery Me thod Nasal Cannula OxyM ask Oxygen Flow Rate 3.5 Fraction of Inspir ed Oxygen 40 11/09/23 10:30 11/09/23 10:36 11/09/23 11:30 Temperature Pulse Rate 88 88 Pulse Rate [Pulse Oximeter] Respiratory Rate 24 Blood Pressure [Le ft Arm] Blood Pressure [Ri ght Arm] Pulse Oximetry 94 Oxygen Delivery Me thod Nasal Cannula OxyM ask Oxygen Flow Rate 3.5 Fraction of Inspir ed Oxygen 11/09/23 12:00 11/09/23 13:16 11/09/23 14:00 Temperature 98.5 F 98.5 F 98.5 F Pulse Rate Pulse Rate [Pulse Oximeter] 95 96 85 Respiratory Rate 24 24 18 Blood Pressure [Le ft Arm] Blood Pressure [Ri ght Arm] 132/83 95/77 Pulse Oximetry 95 95 95 Oxygen Delivery Me thod Nasal Cannula OxyM ask Nasal Cannula OxyM ask Nasal Cannula OxyM ask Oxygen Flow Rate 4.5 4.5 4.5 Fraction of Inspir ed Oxygen 40 40 11/09/23 14:34 11/09/23 15:00 11/09/23 16:00 Temperature 98.5 F Pulse Rate 85 Pulse Rate [Pulse Oximeter] 85 80 Respiratory Rate 18 18 Blood Pressure [Le ft Arm] Blood Pressure [Ri ght Arm] 121/74 Pulse Oximetry 97 Oxygen Delivery Me thod BiPAP Oxygen Flow Rate Fraction of Inspir ed Oxygen 11/09/23 17:05 11/09/23 18:00 11/09/23 19:12 Temperature Pulse Rate 79 Pulse Rate [Pulse Oximeter] Respiratory Rate Blood Pressure [Le ft Arm] Blood Pressure [Ri ght Arm] 98/71 Pulse Oximetry Oxygen Delivery Me thod Oxygen Flow Rate Fraction of Inspir ed Oxygen 40 11/09/23 19:20 11/09/23 19:20 11/09/23 20:00 Temperature 97.5 F L Pulse Rate Pulse Rate [Pulse Oximeter] 80 77 Respiratory Rate 14 14 14 Blood Pressure [Le ft Arm] Blood Pressure [Ri ght Arm] 97/63 Pulse Oximetry 94 91 Oxygen Delivery Me thod Nasal Cannula Nasal Cannula Oxygen Flow Rate 3 1.5 Fraction of Inspir ed Oxygen 11/09/23 20:25 11/09/23 20:27 11/09/23 21:41 Temperature Pulse Rate Pulse Rate [Pulse Oximeter] 85 83 Respiratory Rate Blood Pressure [Le ft Arm] Blood Pressure [Ri ght Arm] 165/90 H 134/85 128/72 Pulse Oximetry Oxygen Delivery Me thod Oxygen Flow Rate Fraction of Inspir ed Oxygen 11/09/23 22:00 11/09/23 22:04 11/09/23 23:00 Temperature 97.8 F Pulse Rate Pulse Rate [Pulse Oximeter] 89 Respiratory Rate 16 12 Blood Pressure [Le ft Arm] 82/52 L Blood Pressure [Ri ght Arm] Pulse Oximetry 91 91 Oxygen Delivery Me thod Room Air Room Air Oxygen Flow Rate Fraction of Inspir ed Oxygen 11/09/23 23:27 11/10/23 00:30 11/10/23 02:00 Temperature 97.9 F 97.8 F Pulse Rate 85 Pulse Rate [Pulse Oximeter] 80 79 Respiratory Rate 12 26 H Blood Pressure [Le ft Arm] 87/54 L 127/82 Blood Pressure [Ri ght Arm] Pulse Oximetry 90 92 Oxygen Delivery Me thod Room Air Nasal Cannula Oxygen Flow Rate 3 Fraction of Inspir ed Oxygen 11/10/23 02:02 11/10/23 03:20 11/10/23 04:50 Temperature 97.8 F Pulse Rate 77 Pulse Rate [Pulse Oximeter] 80 Respiratory Rate 26 H 20 Blood Pressure [Le ft Arm] 111/69 Blood Pressure [Ri ght Arm] Pulse Oximetry 92 Oxygen Delivery Me thod Room Air Oxygen Flow Rate Fraction of Inspir ed Oxygen 11/10/23 06:00 11/10/23 07:00 11/10/23 07:00 Temperature 97.6 F Pulse Rate 84 Pulse Rate [Pulse Oximeter] 84 92 Respiratory Rate 20 18 Blood Pressure [Le ft Arm] 128/76 Blood Pressure [Ri ght Arm] Pulse Oximetry 92 Oxygen Delivery Me thod Room Air Oxygen Flow Rate Fraction of Inspir ed Oxygen 11/10/23 08:00 11/10/23 08:58 11/10/23 08:58 Temperature 98.1 F Pulse Rate Pulse Rate [Pulse Oximeter] 92 Respiratory Rate 18 Blood Pressure [Le ft Arm] 128/69 Blood Pressure [Ri ght Arm] Pulse Oximetry 97 93 Oxygen Delivery Me thod Room Air Room Air Oxygen Flow Rate Fraction of Inspir ed Oxygen 40 DS: Data Data Completed and Pending Completed studies during hospitalization: Procedures Detoxification Services for Substance Abuse Treatment (03/12/23) Insertion of Infusion Device into Superior Vena Cava, Percutaneous Approach (03/12/23) Introduction of Other Gas into Respiratory Tract, Via Natural or Artificial Opening (03/12/23) Labs on day of discharge: Labs from last 24 hours 11/10/23 11/09/23 11/09/23 05:48 Unknown 10:30 WBC 8.43 RBC 4.97 Hgb 14.4 Hct 45.9 MCV 92 MCH 29 MCHC 31 L Plt Count 137 L VBG pH 7.404 VBG pCO2 49 VBG pO2 48.0 H VBG HCO3 30 H Sodium 138 Potassium 4.1 Chloride 105 Carbon Dioxide 29 Anion Gap 4 L BUN 16 Creatinine 1.1 Estimated Creat Clear 83.73 Estimated GFR 78 Glucose 95 Calcium 8.6 Procalcitonin Urine L. pneumophilia Ag L. pneumo Negative Urine Strep pneumoniae Ag S. pneumo Negative Lab Acknowledgement Test Added 11/09/23 03:30 WBC RBC Hgb Hct MCV MCH MCHC Plt Count VBG pH VBG pCO2 VBG pO2 VBG HCO3 Sodium Potassium Chloride Carbon Dioxide Anion Gap BUN Creatinine Estimated Creat Clear Estimated GFR Glucose Calcium Procalcitonin 0.07 Urine L. pneumophilia Ag Urine Strep pneumoniae Ag Lab Acknowledgement Imaging CT chest abdomen pelvis: Attestation: I have reviewed the pertinent imaging results. Radiologist's impression: CHEST Airway: Normal caliber trachea. Mild central bronchial wall thickening. Lungs: Mild respiratory motion. Tree-in-bud nodularity primarily in the bases. Few scattered small irregular ground-glass and subsolid opacities. Patchy peribronchial consolidations in both lung bases. At least 1 stable nodule in the left lower lobe. Pleura: No pleural effusion. No pneumothorax. Lymph nodes: No thoracic adenopathy. Mediastinum: No pneumomediastinum. No mass. Heart and great vessels: No pericardial effusion. Normal cardiac chamber size. No substantial atherosclerotic plaques. No aortic aneurysm. Significantly dilated main pulmonary artery. Chest wall: Normal. No masses. ABDOMEN AND PELVIS Liver: Normal noncontrast appearance of the liver. The liver is not enlarged or cirrhotic. No steatosis. Gallbladder and bile ducts: Normal gallbladder. No bile duct dilation. Pancreas: Normal. Spleen: Mildly enlarged spleen measures 15 centimeters and is similar compared to prior. Adrenal glands: Normal. Kidneys: Normal parenchyma. Small left renal cyst. No calculi. No urinary tract dilation. Urinary bladder: Urinary bladder is moderately distended. Pelvis: No cyst or mass. Vessels: Minimal atherosclerotic vascular calcifications at the aortic bifurcation. Bowel: No dilated or inflamed bowel. Diverticulosis without diverticulitis appendix not definitely seen. [id number] stool burden. Lymph nodes: No adenopathy. Peritoneum: No ascites. Abdominal wall: Umbilical hernia repair without recurrent hernia. BONES: L4 through S1 posterior instrumented fusion. Operative level laminectomy. Bone graft harvest site posterior iliac bones. No hardware complication seen. No focal bone lesions. IMPRESSION: 1. Infectious distal airways disease and multifocal bronchopneumonia. Recommend follow-up chest CT in 3 months to ensure resolution of the nodular components. 2. Moderately distended urinary bladder. 3. Dilated pulmonary artery may reflect underlying pulmonary hypertension. Please note that all CT scans at this facility use dose modulation, iterative reconstruction, and/or weight-based dosing when appropriate to reduce radiation dose to as low as reasonably achievable. Chest x-ray: Attestation: I have reviewed the pertinent imaging results. Radiologist's impression: Cardiovascular and mediastinum: Stable mild cardiomegaly. Lungs and pleural spaces: No consolidation. No pleural effusions or pneumothorax. Bones and soft tissues: No significant findings. IMPRESSION: Stable mild cardiomegaly without evidence of acute pulmonary process. Discharge Plan Discharge Disposition: Home, Self-Care Date of Admission: 11/09/23 10:39 Attending Provider on Discharge: Rosina Morales Primary Care Provider: Brian Martínez Condition: Improved Anticipated Discharge Date/Time: 11/10/23 09:23 Discharge Medications: New amoxicillin-pot clavulanate 875-125 mg tablet 1 tab PO BID Qty: 14 0RF Continued propranolol 20 mg tablet 20 mg PO BID trazodone 100 mg tablet 200 mg PO QHS amlodipine 5 mg tablet 5 mg PO HS methocarbamol 750 mg tablet 750 mg PO Q8H PRN omeprazole 20 mg capsule,delayed release(DR/EC) 20 mg PO DAILY alprazolam 1 mg tablet 1 mg PO HS gabapentin 400 mg capsule 1,200 mg PO TID diclofenac sodium 75 mg tablet,delayed release (DR/EC) 75 mg PO BID PRN (Reason: severe pain) olanzapine 20 mg tablet 20 mg PO HS nystatin 100,000 unit/mL suspension 5 ml PO QID atorvastatin 20 mg tablet 20 mg PO HS tamsulosin [Flomax] 0.4 mg capsule 0.4 mg PO DAILY prazosin 2 mg capsule 2 mg PO HS metoprolol succinate 100 mg capsule,sprinkle,ER 24hr 100 mg PO DAILY testosterone cypionate [Depo-Testosterone] 200 mg/mL oil 200 mg IM Q2W Qty: 6 1RF ropinirole 2 mg tablet 2 mg PO BID Qty: 180 2RF quetiapine [Seroquel] 400 mg tablet 800 mg PO QHS Qty: 60 1RF Discharge Orders: Discharge Order (Routine); Ordered 11/10/23 Ordered By: Rosina Morales Patient Education: Amoxicillin/Clavulanate Potassium (By mouth), Aspiration Pneumonia (GEN), Bacterial Pneumonia (DC) Activity Level: No Restrictions Discharge Diet: Regular Follow Up Appointments: Brian Martínez MD [Primary Care Provider] - Ángel Massey MD [Staff Physician] - 11/16/23 3:45 pm ([facility] for post hospital follow up. ) Forms: MemberConnection Info Instructions
--- NOTE | 2023-11-10 10:06 | PC.NURSE ---
Discharge: Patient pleasant and cooperative, VSS, on 97% on RA, patients lung sounds have fine crackles posterior mid to bottom bases. Productive cough this morning, marketing writer encouraged patient to spit out the gunk. Patient denies N/V, rates chronic pain 5/10. Patient discharged to home today at 0955, accompanied by mother. Patient signed discharge instructions and belongings sheet. Verbalized understanding of discharge instructions. Patient's IV removed intact. It Data Architect instructed patient to take all of the prescribed antibiotics and go to follow up appointments.
--- NOTE | 2023-11-10 13:54 | PC.SOCIAL ---
Discharge planning: forensic social worker met with pt this morning to address pt's concerns with discharging from the hospital and not being able to go back to [facility] for outpatient treatment due to his positive drug screen while in the hospital. forensic social worker explained to the pt that the hospital does not release information to treatment facilities without permission from the pt. Pt stated that he is on probation in [facility] for a DUI and meets his safety officer for the first time on 11/24/2023 via Zoom. Pt states that he doesn't plan on telling his safety officer about his positive drug screen while in the hospital because if he gets kicked out of outpatient treatment at [facility] he will have to do inpatient chemical dependency treatment for up to three months and he does not want to do that at all. forensic social worker reiterated that the hospital would not release his medical record information from this hospital stay without a signed DORA from the pt or possibly a court ordered request, but that that would be determined by the medical records department and/or hospital administration. Social work to follow-up as needed.
== END 2023-11-10 09:55 | disposition home or self-care (01) | DRG 177 ==
LOC: ED 06:01 → MEDSURG 08:20
PROVIDERS: Family Medicine; Admitting Provider Physician Assistant; Emergency Provider Family Medicine; PCP Family Medicine; Visit Provider Family Medicine
DX: J69.0 Pneumonitis due to inhalation of food and vomit (principal); J96.01 Acute respiratory failure with hypoxia; N18.4 Chronic kidney disease, stage 4 (severe); J70.2 Acute drug-induced interstitial lung disorders; F14.188 Cocaine abuse with other cocaine-induced disorder; F15.21 Other stimulant dependence, in remission; F10.21 Alcohol dependence, in remission; F12.21 Cannabis dependence, in remission; I12.9 Hypertensive chronic kidney disease with stage 1 through stage 4 chronic kidney disease, or unspecified chronic kidney disease; F20.9 Schizophrenia, unspecified; M25.512 Pain in left shoulder; M25.511 Pain in right shoulder; G25.81 Restless legs syndrome; F43.10 Post-traumatic stress disorder, unspecified; G89.29 Other chronic pain; E78.2 Mixed hyperlipidemia
CPT/HCPCS: 36415; 71045; 71250; 74176; 80048; 80076; 80306; 82077; 82803; 83605; 83735; 83880; 84145; 84484; 85025; 85027; 85379; 86140; 87449; 87631; 87899; 93005; 94660; 94761; 99284; 99285; 99291; A9270; J0696; J1650; J1940; J2543; J3372; J7050

== ENCOUNTER 2023-12-04 02:03 | Emergency (ER) | payer OTHER, MEDICAID, SELFPAY ==
[2023-12-04] VITALS (38 sets, daily range): BP systolic 117–177; BP diastolic 62–129; PULSE 72–90; RESP 20–24; TEMP 37.1; O2SAT 87–97; BMI 28.4
--- NOTE | 2023-12-04 02:19 | CRLHL7_ITS ---
For Patients: As a result of the Cures Act, medical imaging exams and procedure reports are released immediately into your electronic medical record. You may view this report before your referring provider. If you have questions, please contact your health care provider. INDICATION: Shortness of breath. TECHNIQUE: Chest 1 view. COMPARISON: CT chest, abdomen common pelvis 11/09/2023. FINDINGS: Cardiovascular and mediastinum: Stable cardiomegaly. Lungs and pleural spaces: Bilateral lower lung zone patchy opacities. No pleural effusions or pneumothorax. Bones and soft tissues: No significant findings. IMPRESSION: Bilateral lower lung zone patchy opacities, which may represent ongoing infectious process. Dictated by Caden Espinoza MD @ 12/04/2023 3:07:19 AM (Electronically Signed)
--- NOTE | 2023-12-04 02:22 | ED_ITS ---
HPI - General Adult General Date Seen: 12/04/23 Chief complaint: Shortness of Breath/Dyspnea Stated complaint: Short of breath Time Seen by Provider: 12/04/23 02:05 Source: patient Mode of arrival: ambulatory Limitations: no limitations History of Present Illness HPI narrative: Patient is a 57-year-old male who was recently hospitalized here with pneumonia and pulmonary edema thought to be associated with aspiration related to nasal cocaine use. He is in a day program for alcohol currently, says he is not been drinking for the past 4 months. Admitted early November with acute hypoxemic respiratory failure, improved fairly quickly looks like after BiPAP and high- flow nasal oxygen, discharged the day after admission. He reports similar symptoms with shortness of breath and chest pain which he notes is chronic. He denies fevers, denies cough. He denies recent cocaine use. He has not smoked for many many years, denies any marijuana or vaping. He does say that his son vapes and smokes around him. He has not had any nausea vomiting, diarrhea, bloody stools, abdominal pain. Chronic back pain. No lower extremity swelling or pain. Other medical history reviewed. Echo done in March 2023 reviewed, this showed a normal ejection fraction of 64%, mild wall thickness, no significant valvular dysfunction and no effusion. Related Data Home Medications ?Medication ?Instructions ?Recorded ?Confirmed trazodone 100 mg tablet 200 mg PO QHS 03/11/23 11/09/23 amlodipine 5 mg tablet 5 mg PO HS 09/24/23 11/09/23 methocarbamol 750 mg tablet 750 mg PO Q8H PRN 09/24/23 11/09/23 omeprazole 20 mg capsule,delayed 20 mg PO DAILY 09/24/23 11/09/23 release propranolol 20 mg tablet 20 mg PO BID 10/01/23 11/09/23 alprazolam 1 mg tablet 1 mg PO HS 11/09/23 11/09/23 atorvastatin 20 mg tablet 20 mg PO HS 11/09/23 11/09/23 diclofenac sodium 75 mg 75 mg PO BID PRN severe pain 11/09/23 11/09/23 tablet,delayed release gabapentin 400 mg capsule 1,200 mg PO TID 11/09/23 11/09/23 metoprolol succinate 100 mg 100 mg PO DAILY 11/09/23 11/09/23 capsule sprinkle, ext. release 24 hr nystatin 100,000 unit/mL oral 5 ml PO QID 11/09/23 11/09/23 suspension olanzapine 20 mg tablet 20 mg PO HS 11/09/23 11/09/23 prazosin 2 mg capsule 2 mg PO HS 11/09/23 11/09/23 tamsulosin 0.4 mg capsule (Flomax) 0.4 mg PO DAILY 11/09/23 11/09/23 Previous Rx's ?Medication ?Instructions ?Recorded testosterone cypionate 200 mg/mL 200 mg IM Q2W #6 mL 01/06/23 intramuscular oil (Depo-Testosterone) ropinirole 2 mg tablet 2 mg PO BID #180 tabs 03/22/23 quetiapine 400 mg tablet (Seroquel) 800 mg (2 x 400 mg) PO QHS #60 tabs 06/04/23 amoxicillin 875 mg-potassium 1 tab PO BID #14 tabs 11/10/23 clavulanate 125 mg tablet Allergies Allergy/AdvReac Type Severity Reaction Status Date / Time valproic acid AdvReac Intermediate excessive Verified 10/01/23 11:04 sedation naltrexone AdvReac Unknown Verified 10/01/23 11:04 Review of Systems Status of ROS: Reports: 10 or more systems reviewed and unremarkable except as noted in History and below [facility] Medical History Fracture of left wrist with malunion ?S62.102P - Fracture of unspecified carpal bone, left wrist, subsequent encounter for fracture with malunion (ICD-10) Marijuana abuse ?F12.10 - Cannabis abuse, uncomplicated (ICD-10) Primary hypertension ?I10 - Essential (primary) hypertension (ICD-10) Mixed hyperlipidemia ?E78.2 - Mixed hyperlipidemia (ICD-10) Rupture of right biceps tendon ?S46.211A - Strain of muscle, fascia and tendon of other parts of biceps, right arm, initial encounter (ICD-10) 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) ?F15.21 - Other stimulant dependence, in remission (ICD-10) Allergic rhinitis ?J30.9 - Allergic rhinitis, unspecified (ICD-10) Seborrheic dermatitis ?L21.9 - Seborrheic dermatitis, unspecified (ICD-10) Chronic pain of both shoulders ?M25.511 - Pain in right shoulder (ICD-10) ?M25.512 - Pain in left shoulder (ICD-10) ?G89.29 - Other chronic pain (ICD-10) BPH (benign prostatic hyperplasia) ?N40.0 - Benign prostatic hyperplasia without lower urinary tract symptoms (ICD-10) Spondylosis of cervical spine with radiculopathy (09/06/19) ?M47.22 - Other spondylosis with radiculopathy, cervical region (ICD-10) Restless legs syndrome ?G25.81 - Restless legs syndrome (ICD-10) Posttraumatic stress disorder ?F43.10 - Post-traumatic stress disorder, unspecified (ICD-10) Photokeratitis of both eyes (07/31/18) ?H16.133 - Photokeratitis, bilateral (ICD-10) Insomnia ?G47.00 - Insomnia, unspecified (ICD-10) Hypogonadism in male ?E29.1 - Testicular hypofunction (ICD-10) History of traumatic rupture of spleen ?Z87.828 - Personal history of other (healed) physical injury and trauma (ICD-10) History of psychoactive substance use disorder ?Z87.898 - Personal history of other specified conditions (ICD-10) History of migraine ?Z86.69 - Personal history of other diseases of the nervous system and sense organs (ICD-10) History of gastroesophageal reflux (GERD) ?Z87.19 - Personal history of other diseases of the digestive system (ICD-10) History of alcohol dependence ?F10.21 - Alcohol dependence, in remission (ICD-10) Genital herpes simplex ?A60.00 - Herpesviral infection of urogenital system, unspecified (ICD-10) Gastroesophageal reflux disease (05/16/01) ?K21.9 - Gastro-esophageal reflux disease without esophagitis (ICD-10) Erectile dysfunction ?N52.9 - Male erectile dysfunction, unspecified (ICD-10) 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 - Nightmare disorder (ICD-10) Surgical History H/O umbilical hernia repair (09/27/23) ?Z98.890 - Other specified postprocedural states (ICD-10) ?Z87.19 - Personal history of other diseases of the digestive system (ICD-10) History of arthroscopy of right shoulder (01/13/23) ?Z98.890 - Other specified postprocedural states (ICD-10) S/P arthroscopy of right shoulder (02/11/22) ?Z98.890 - Other specified postprocedural states (ICD-10) History of spinal surgery (1999) ?Z98.890 - Other specified postprocedural states (ICD-10) Status post right rotator cuff repair ?Z98.890 - Other specified postprocedural states (ICD-10) History of surgery on arm ?Z98.890 - Other specified postprocedural states (ICD-10) H/O left wrist surgery ?Z98.890 - Other specified postprocedural states (ICD-10) History of fusion of lumbar spine ?Z98.1 - Arthrodesis status (ICD-10) History of cervical spinal arthrodesis (2019) ?Z98.1 - Arthrodesis status (ICD-10) History of bunionectomy of right great toe (10/27/04) ?Z98.890 - Other specified postprocedural states (ICD-10) Social History Narrative: Lives with mother (Kathy Guerra - medical decision maker if needed). Single, 2 kids, one son committed suicide, non-smoker, ETOH overuse (24 beers in one sitting most days of the week). Requesting Full Code status. What is your current living situation?: I presently have a place to live Problems where you live: no known problems Problems where you live details: no known problems In the past 12 months, utilities in danger of being shut off: no In past 12 months, lack of transportation kept you from medical appts, meetings, work, or getting things needed for daily living: no In the past 12 mos, have been you worried that your food would run out before you had money to buy more?: never true In the past 12 mos, the food you bought just didn't last and you didn't have money to buy more?: never true Highest level of school completed/degree received: high school graduate Smoking Status: Former smoker Do you use any of these nicotine containing products: None Second hand tobacco smoke exposure: No How often do you have a drink containing alcohol: never How many standard drinks containing alcohol do you have on a typical day: 10 or more How often do you have six or more drinks on one occasion: Daily or almost daily AUDIT-C Alcohol total score: 8 Non-prescribed substance use: former substance user and crack/cocaine Non-prescribed substance use details: pt denied use, pt states he is in treatment here in [facility]. Has interlock system on vehicle. Pt has history of ETOH and drug (amphetamine/methamphetamine) use. History of PTSD, Paranoia. Caffeine: Yes How often does anyone, including family, friends and others, physically hurt you : never How often does anyone, including family, friends and others, insult or talk down to you: never How often does anyone, including family, friends and others, threaten you with harm: never How often does anyone, including family, friends and others, scream or curse at you: never Little interest or pleasure in doing things: more than half the days Feeling down, depressed, or hopeless: more than half the days service: No Exam Narrative: Exam Narrative: Vital signs as noted above. In general, an alert, nontoxic male, dyspneic. Speaks in phrases. Head: Normocephalic, atraumatic. Eyes: Pupils are equal reactive. Extraocular movements are full. Conjunctivae are normal. ENT: Mucous membranes are moist. Throat is normal. Neck: Supple without lymphadenopathy. Heart: Regular rate and rhythm. No murmur or rub. Lungs: A few scattered wheezes, I do not hear any crackles at this time. Abdomen: Protuberant, soft. Nontender. Extremities: Well perfused. No edema. No calf tenderness. Pulses intact. Neurologic: Patient is alert and oriented to person and place. Speech is fluent. Face is symmetric. Moves all extremities equally. Affect: Normal. Skin: Warm and dry. Well perfused. Const: Vital Signs, click to edit/add: Vital Signs - 24 hr 12/04/23 02:06 12/04/23 02:18 12/04/23 02:21 Temperature 98.8 F Pulse Rate Pulse Rate [Left P ulse Oximeter] 90 Respiratory Rate 24 Blood Pressure Blood Pressure [Ri ght Upper Arm] 133/62 Pulse Oximetry 87 L 94 90 Oxygen Delivery Me thod Room Air Oxygen Flow Rate 12/04/23 02:31 12/04/23 02:32 12/04/23 02:41 Temperature Pulse Rate 82 80 Pulse Rate [Left P ulse Oximeter] Respiratory Rate Blood Pressure 125/80 Blood Pressure [Ri ght Upper Arm] Pulse Oximetry 91 90 94 Oxygen Delivery Me thod Oxygen Flow Rate 3 12/04/23 02:42 12/04/23 02:45 12/04/23 02:50 Temperature Pulse Rate 83 80 Pulse Rate [Left P ulse Oximeter] Respiratory Rate Blood Pressure 122/75 Blood Pressure [Ri ght Upper Arm] Pulse Oximetry 91 89 94 Oxygen Delivery Me thod Oxygen Flow Rate 12/04/23 03:00 12/04/23 03:03 12/04/23 03:04 Temperature Pulse Rate 77 82 78 Pulse Rate [Left P ulse Oximeter] Respiratory Rate Blood Pressure 141/103 H Blood Pressure [Ri ght Upper Arm] Pulse Oximetry 94 95 95 Oxygen Delivery Me thod OxyMask Oxygen Flow Rate 12/04/23 03:10 12/04/23 03:15 12/04/23 03:17 Temperature Pulse Rate 75 76 Pulse Rate [Left P ulse Oximeter] Respiratory Rate Blood Pressure 119/67 Blood Pressure [Ri ght Upper Arm] Pulse Oximetry 97 94 94 Oxygen Delivery Me thod Oxygen Flow Rate 12/04/23 03:20 12/04/23 03:22 12/04/23 03:30 Temperature Pulse Rate 74 74 Pulse Rate [Left P ulse Oximeter] Respiratory Rate Blood Pressure 117/72 Blood Pressure [Ri ght Upper Arm] Pulse Oximetry 93 94 94 Oxygen Delivery Me thod OxyMask Oxygen Flow Rate 3 12/04/23 03:40 12/04/23 03:42 12/04/23 03:45 Temperature Pulse Rate 74 73 Pulse Rate [Left P ulse Oximeter] Respiratory Rate Blood Pressure 126/80 Blood Pressure [Ri ght Upper Arm] Pulse Oximetry 94 95 94 Oxygen Delivery Me thod Oxygen Flow Rate 12/04/23 03:50 12/04/23 04:00 12/04/23 04:02 Temperature Pulse Rate 72 72 Pulse Rate [Left P ulse Oximeter] Respiratory Rate Blood Pressure 135/82 Blood Pressure [Ri ght Upper Arm] Pulse Oximetry 95 93 94 Oxygen Delivery Me thod Oxygen Flow Rate 12/04/23 04:10 12/04/23 04:15 12/04/23 04:20 Temperature Pulse Rate 72 Pulse Rate [Left P ulse Oximeter] Respiratory Rate Blood Pressure Blood Pressure [Ri ght Upper Arm] Pulse Oximetry 94 95 96 Oxygen Delivery Me thod Oxygen Flow Rate 12/04/23 04:22 12/04/23 04:23 12/04/23 04:30 Temperature Pulse Rate 73 74 73 Pulse Rate [Left P ulse Oximeter] Respiratory Rate Blood Pressure 137/87 Blood Pressure [Ri ght Upper Arm] Pulse Oximetry 95 95 96 Oxygen Delivery Me thod Oxygen Flow Rate 12/04/23 04:42 12/04/23 05:02 12/04/23 05:03 Temperature Pulse Rate 74 75 Pulse Rate [Left P ulse Oximeter] Respiratory Rate Blood Pressure 153/90 H 177/129 H Blood Pressure [Ri ght Upper Arm] Pulse Oximetry 96 93 Oxygen Delivery Me thod Oxygen Flow Rate 12/04/23 05:15 12/04/23 05:22 12/04/23 05:30 Temperature Pulse Rate 73 72 72 Pulse Rate [Left P ulse Oximeter] Respiratory Rate Blood Pressure 117/73 Blood Pressure [Ri ght Upper Arm] Pulse Oximetry 93 93 94 Oxygen Delivery Me thod Oxygen Flow Rate 12/04/23 06:03 12/04/23 07:32 Temperature Pulse Rate Pulse Rate [Left P ulse Oximeter] Respiratory Rate 20 Blood Pressure Blood Pressure [Ri ght Upper Arm] Pulse Oximetry 87 L 92 Oxygen Delivery Me thod Room Air Room Air Oxygen Flow Rate Documenting provider has reviewed patient's vital signs: yes Course Course ED Course: Recorded O2 sats on room air at triage were 87%, at the time of my exam he was 91%. Breathing does appear somewhat labored. Portable chest x-ray ordered, note that he had a normal EF in March and BNP on his most recent admission was 23, suggesting that there was not significant heart failure as a cause for his pulmonary edema. He does not carry a diagnosis of asthma or COPD, but will go ahead and try DuoNeb as primarily what I hear in his lungs is occasional wheezing. Blood alcohol and drug screen ordered, patient denies current use. EKG by my review showed a sinus rhythm, ventricular rate of 84. No acute ST segment changes, nonspecific T-wave flattening in the inferolateral leads. Troponin, D-dimer and other basic labs pending Venous gas today shows a compensated pH, 7.391 with a pCO2 of 51 and a venous bicarb of 31. His troponin is normal. Labs overall are really quite reassuring, white blood cell count is normal at 8.9, hemoglobin is 16.2. D- dimer is 0.2 to and metabolic panel is normal. Creatinine which has been a problem for him of late is normal today at 1.2. His lactate is 1.1, magnesium 2.2, LFTs unremarkable with the exception of an AST of 43. CRP is less than 0.5, BNP is less than 20. UA is negative. Drug screen is notably positive for methamphetamines and marijuana. Blood alcohol is negative and COVID, RSV and influenza are negative. I did do a chest x-ray, this is read as follows by Radiology:Patient: GRACIE GUERRA Facility: [facility] Site . Site : 1965 Study: XRay-Chest 1V PORTABLE-12/04/2023 2:58:32 AM Ordering Physician: Sabino Hudson Final Report: INDICATION: Shortness of breath. TECHNIQUE: Chest 1 view. COMPARISON: CT chest, abdomen common pelvis 11/09/2023. FINDINGS: Cardiovascular and mediastinum: Stable cardiomegaly. Lungs and pleural spaces: Bilateral lower lung zone patchy opacities. No pleural effusions or pneumothorax. Bones and soft tissues: No significant findings. IMPRESSION: Bilateral lower lung zone patchy opacities, which may represent ongoing infectious process. Dictated by Caden Espinoza MD @ 12/04/2023 3:07:19 AM Given this, I elected to do a CT of the chest just to see how his infiltrates were looking by comparison. I did this as a noncontrast study as his D-dimer was negative and he does not have other notable risk factors for PE. CT scan by radiology read is as follows:Patient: Gracie Guerra MR#: [id number] : 1965 Acct:[id number] Loc: ED Service Date: 12/04/[address]: Ordering Physician: Becca Gallo M.D. Date of Service: 12/04/23 Procedure(s): CT chest wo con Accession Number(s): [id number] cc: Becca Gallo M.D.; Brian Martínez M.D.~ For Patients: As a result of the Cures Act, medical imaging exams and procedure reports are released immediately into your electronic medical record. You may view this report before your referring provider. If you have questions, please contact your health care provider. INDICATION: Shortness of breath. Recent pneumonia. TECHNIQUE: CT chest without contrast. COMPARISON: 11/08/2023. FINDINGS: Lungs and pleura: Significantly improved lung infiltrates. Tiny miliary infiltrates persist, predominantly in the lower right lung. No pleural effusions, pleural thickening, or pneumothorax. Heart and vasculature: Heart size is normal. Thoracic aorta and pulmonary artery are normal in caliber. Lymph nodes/mediastinum: No mediastinal, hilar, or axillary adenopathy. Chest wall: No masses. Upper abdomen: No significant findings. Bones: Unremarkable for age. IMPRESSION: Significantly improved pneumonia. Remainder of the exam is unremarkable and unchanged. No other finding to explain shortness of breath. Please note that all CT scans at this facility use dose modulation, iterative reconstruction, and/or weight-based dosing when appropriate to reduce radiation dose to as low as reasonably achievable. Dictated by John Gandhi MD @ 12/04/2023 5:43:46 AM I think this is reassuring, it looks as if his pneumonia has essentially cleared. I watched him here in the ER for couple additional hours after his steroid and DuoNeb. He is improved, lungs are clear, O2 sats are 92-94% on room air and he feels better. It seems as if he had some component of bronchospasm tonight, recommended to him that we have him use albuterol and some prednisone would at home. I do not think he needs additional antibiotics. He says he is continuing in his day program for alcohol, it is unclear to me how his ongoing drug use fits into this program, however at this time he is denying other use. He is comfortable with discharge home. He received a dose of Prilosec here in the ER as he says he likes to take that promptly in the morning so he does not get reflux. Vital Signs Vital signs: Initial Vital Signs Temperature 98.8 F 12/04/23 02:06 Temperature Source Temporal Artery Scan 12/04/23 02:06 Pulse Rate 90 12/04/23 02:06 Pulse Rhythm Regular 12/04/23 02:06 Respiratory Rate 12/04/23 02:06 Blood Pressure 133/62 12/04/23 02:06 Blood Pressure Mean 85 12/04/23 02:06 Blood Pressure Position Sitting 12/04/23 02:06 Pulse Oximetry 87 L 12/04/23 02:06 Oxygen Delivery Method Room Air 12/04/23 02:06 Vital Signs Temperature 98.8 F 12/04/23 02:06 Pulse Rate 90 12/04/23 02:06 Respiratory Rate 24 12/04/23 02:06 Blood Pressure 133/62 12/04/23 02:06 Pulse Oximetry 87 L 12/04/23 02:06 Oxygen Delivery Method Room Air 12/04/23 02:06 Temperature 98.8 F 12/04/23 02:06 Pulse Rate 72 12/04/23 05:30 Respiratory Rate 20 12/04/23 06:03 Blood Pressure 117/73 12/04/23 05:22 Pulse Oximetry 92 12/04/23 07:32 Oxygen Delivery Method Room Air 12/04/23 07:32 Oxygen Flow Rate 3 12/04/23 03:30 Medications Administered Medications: Generic Name Dose Route Start Last Admin Trade Name Rameshq PRN Reason Stop Dose Admin Omeprazole 20 mg 12/04/23 07:22 12/04/23 07:27 Omeprazole [address] PO 12/04/23 07:23 20 mg ONCE ONE Administration Discontinued Medications Generic Name Dose Route Start Last Admin Trade Name Luiz PRN Reason Stop Dose Admin Albuterol/Ipratropium 1 neb 12/04/23 02:17 12/04/23 02:38 Iprat-Albut 0.5-2.5 Mg/3 Ml Neb IH 12/04/23 02:18 1 neb ONCE ONE Administration Prednisone 60 mg 12/04/23 02:17 12/04/23 02:38 Prednisone 20 Mg Tablet PO 12/04/23 02:18 60 mg ONCE ONE Administration Medical Decision Making Lab Data Labs: Lab Results 12/04/23 12/04/23 12/04/23 Range/Units 02:19 02:21 02:23 WBC (4.50-11.00) K/uL RBC (4.30-5.90) m/uL Hgb (13.5-17.5) gm/dL Hct (37.0-53.0) % MCV (80-100) fL MCH (26-34) pg MCHC (32-36) gm/dL RDW Coeff of Negro (11.5-15.5) % Plt Count (140-440) K/uL Neut % (Auto) (42.0-72.0) % Lymph % (Auto) (20-44) % [place] % (Auto) (0.0-11.0) % Eos % (Auto) (0.0-7.0) % Baso % (Auto) (0.0-3.0) % Neut # (Auto) (1.7-7.0) K/uL Lymph # (Auto) (0.90-2.90) K/uL [place] # (Auto) (0.00-0.90) K/UL Eos # (Auto) (0.00-0.50) K/uL Baso # (Auto) (0.00-0.30) K/uL Abs Immat Gran (auto) (0.00-0.30) K/uL Imm/Tot Granulo (auto) % D-Dimer Quant (PE/DVT) (0.00-0.50) ug/ml VBG pH (7.32-7.43) VBG pCO2 (40-50) mmHG VBG pO2 (25-47) mmHG VBG HCO3 (21-28) mmol/L Sodium (135-149) mmol/L Potassium (3.6-5.1) mmol/L Chloride (96-114) mmol/L Carbon Dioxide (20-32) mmol/L Anion Gap (7-15) mEq/L BUN (7-30) mg/dL Creatinine (0.5-1.5) mg/dL Estimated Creat Clear Estimated GFR ml/min Glucose (60-115) mg/dL Lactate (0.5-1.9) mmol/L Calcium (8.4-10.6) mg/dL Magnesium (1.5-2.6) mg/dL Total Bilirubin (0.1-1.5) mg/dL Direct Bilirubin (0.0-0.5) mg/dL AST (12-35) U/L ALT (4-50) U/L Alkaline Phosphatase (40-150) U/L C-Reactive Protein (0.5-1.0) mg/dL NT-Pro-B Natriuret Pep pg/mL Total Protein (6.0-8.3) g/dL Albumin (3.3-5.0) g/dL Urine Color Dark yellow (Yellow) Urine Appearance Clear (Clear) Urine pH 6.5 (5.0-8.5) Ur Specific [place] 1.015 (1.000-1.030) Urine Protein Negative (Negative) Urine Glucose (UA) Negative (Negative) Urine Ketones Negative (Negative) Urine Blood Negative (Negative) Urine Nitrite Negative (Negative) Urine Bilirubin Negative (Negative) Urine Urobilinogen 1.0 (0.2-1.0) Ur Leukocyte Esterase Negative (Negative) Urine RBC 0-2 (0-2) Urine WBC 0-2 (0-5) Ur Squamous Epith Cells Few (None-Few) Urine Bacteria None (None) Urine Opiates Screen (Negative) Ur Buprenorphine Scrn (Negative) Ur Oxycodone Screen (Negative) Urine Methadone Screen (Negative) Ur Barbiturates Screen (Negative) U Tricyclic Antidepress (Negative) Ur Phencyclidine Scrn (Negative) Ur Amphetamines Screen (Negative) U Methamphetamines Scrn (Negative) U Benzodiazepines Scrn (Negative) Urine Cocaine Screen (Negative) U Marijuana (THC) Screen (Negative) Ur Drug Screen Comment Ethyl Alcohol (0.01-0.03) % SARS-CoV-2 (PCR) Negative SARS-CoV-2 (Negative) Influenza Type A (PCR) Negative PCR FLU A (Negative) Influenza Type B (PCR) Negative PCR FLU B (Negative) RSV (PCR) Negative PCR RSV (Negative) POC Troponin I 0.02 (0.01-0.04) ng/ml 12/04/23 12/04/23 Range/Units 02:26 06:23 WBC 8.94 (4.50-11.00) K/uL RBC 5.57 (4.30-5.90) m/uL Hgb 16.2 (13.5-17.5) gm/dL Hct 50.4 (37.0-53.0) % MCV 91 (80-100) fL MCH 29 (26-34) pg MCHC 32 (32-36) gm/dL RDW Coeff of Negro 14.1 (11.5-15.5) % Plt Count 168 (140-440) K/uL Neut % (Auto) 68.4 (42.0-72.0) % Lymph % (Auto) 16.6 L (20-44) % [place] % (Auto) 12.3 H (0.0-11.0) % Eos % (Auto) 0.7 (0.0-7.0) % Baso % (Auto) 0.2 (0.0-3.0) % Neut # (Auto) 6.12 (1.7-7.0) K/uL Lymph # (Auto) 1.50 (0.90-2.90) K/uL [place] # (Auto) 1.10 H (0.00-0.90) K/UL Eos # (Auto) 0.06 (0.00-0.50) K/uL Baso # (Auto) 0.02 (0.00-0.30) K/uL Abs Immat Gran (auto) 0.16 (0.00-0.30) K/uL Imm/Tot Granulo (auto) 1.8 % D-Dimer Quant (PE/DVT) 0.22 (0.00-0.50) ug/ml VBG pH 7.391 (7.32-7.43) VBG pCO2 51 H (40-50) mmHG VBG pO2 47.6 H (25-47) mmHG VBG HCO3 31 H (21-28) mmol/L Sodium 137 (135-149) mmol/L Potassium 3.7 (3.6-5.1) mmol/L Chloride 101 (96-114) mmol/L Carbon Dioxide 28 (20-32) mmol/L Anion Gap 8 (7-15) mEq/L BUN 15 (7-30) mg/dL Creatinine 1.2 (0.5-1.5) mg/dL Estimated Creat Clear 76.76 Estimated GFR 71 ml/min Glucose 132 H (60-115) mg/dL Lactate 1.1 (0.5-1.9) mmol/L Calcium 8.8 (8.4-10.6) mg/dL Magnesium 2.2 (1.5-2.6) mg/dL Total Bilirubin 0.6 (0.1-1.5) mg/dL Direct Bilirubin 0.3 (0.0-0.5) mg/dL AST 43 H (12-35) U/L ALT 45 (4-50) U/L Alkaline Phosphatase 65 (40-150) U/L C-Reactive Protein < 0.5 L (0.5-1.0) mg/dL NT-Pro-B Natriuret Pep < 20 pg/mL Total Protein 6.1 (6.0-8.3) g/dL Albumin 3.4 (3.3-5.0) g/dL Urine Color (Yellow) Urine Appearance (Clear) Urine pH (5.0-8.5) Ur Specific [place] (1.000-1.030) Urine Protein (Negative) Urine Glucose (UA) (Negative) Urine Ketones (Negative) Urine Blood (Negative) Urine Nitrite (Negative) Urine Bilirubin (Negative) Urine Urobilinogen (0.2-1.0) Ur Leukocyte Esterase (Negative) Urine RBC (0-2) Urine WBC (0-5) Ur Squamous Epith Cells (None-Few) Urine Bacteria (None) Urine Opiates Screen Negative (Negative) Ur Buprenorphine Scrn Negative (Negative) Ur Oxycodone Screen Negative (Negative) Urine Methadone Screen Negative (Negative) Ur Barbiturates Screen Negative (Negative) U Tricyclic Antidepress POSITIVE A (Negative) Ur Phencyclidine Scrn Negative (Negative) Ur Amphetamines Screen Negative (Negative) U Methamphetamines Scrn POSITIVE A (Negative) U Benzodiazepines Scrn POSITIVE A (Negative) Urine Cocaine Screen Negative (Negative) U Marijuana (THC) Screen POSITIVE A (Negative) Ur Drug Screen Comment See Note Ethyl Alcohol < 0.01 L (0.01-0.03) % SARS-CoV-2 (PCR) (Negative) Influenza Type A (PCR) (Negative) Influenza Type B (PCR) (Negative) RSV (PCR) (Negative) POC Troponin I (0.01-0.04) ng/ml Discharge Plan Discharge Clinical Impression: Shortness of breath, Methamphetamine abuse Patient Disposition: Home, Self-Care Condition: Improved Instructions: Shortness of Breath (ED) Additional Instructions: Prednisone as prescribed. Albuterol inhaler as needed if you are feeling short of breath or wheezy. Primary care follow-up next week for re-evaluation. Your CT scan today is essentially normal. Return to the ER at any time for acutely worsening shortness of breath, new symptoms such as fever, or other worsening. Prescriptions: No Action propranolol 20 mg tablet 20 mg PO BID trazodone 100 mg tablet 200 mg PO QHS amlodipine 5 mg tablet 5 mg PO HS methocarbamol 750 mg tablet 750 mg PO Q8H PRN omeprazole 20 mg capsule,delayed release(DR/EC) 20 mg PO DAILY alprazolam 1 mg tablet 1 mg PO HS gabapentin 400 mg capsule 1,200 mg PO TID diclofenac sodium 75 mg tablet,delayed release (DR/EC) 75 mg PO BID PRN (Reason: severe pain) olanzapine 20 mg tablet 20 mg PO HS nystatin 100,000 unit/mL suspension 5 ml PO QID atorvastatin 20 mg tablet 20 mg PO HS tamsulosin [Flomax] 0.4 mg capsule 0.4 mg PO DAILY prazosin 2 mg capsule 2 mg PO HS metoprolol succinate 100 mg capsule,sprinkle,ER 24hr 100 mg PO DAILY amoxicillin-pot clavulanate 875-125 mg tablet 1 tab PO BID Qty: 14 0RF testosterone cypionate [Depo-Testosterone] 200 mg/mL oil 200 mg IM Q2W Qty: 6 1RF ropinirole 2 mg tablet 2 mg PO BID Qty: 180 2RF quetiapine [Seroquel] 400 mg tablet 800 mg PO QHS Qty: 60 1RF Follow Up/Referrals: Brian Martínez MD [Primary Care Provider] - Stand Alone Forms: [facility] Info Instructions
[2023-12-04 02:35] LABS: Lactate Sepsis w/Reflex* 1.1 mmol/L (0.5-1.9)
[2023-12-04 02:36] LABS: Basophils Absolute Auto 0.02 K/uL (0.00-0.30); Basophils Percent Auto 0.2 % (0.0-3.0); Eosinophils Absolute Auto 0.06 K/uL (0.00-0.50); Eosinophils Percent Auto 0.7 % (0.0-7.0); Hematocrit 50.4 % (37.0-53.0); Hemoglobin* 16.2 gm/dL (13.5-17.5); Immature Granulocytes Abs Auto 0.16 K/uL (0.00-0.30); Immature Granulocytes Pct Auto 1.8 %; Lymphocytes Percent Auto 16.6 % (20-44); Mean Corpuscular HGB Conc 32 gm/dL (32-36); Mean Corpuscular Hemoglobin 29 pg (26-34); Mean Corpuscular Volume 91 fL (80-100); Monocytes Percent Auto 12.3 % (0.0-11.0); Neutrophils Absolute Auto 6.12 K/uL (1.7-7.0); Neutrophils Percent Auto 68.4 % (42.0-72.0); Platelet Count* 168 K/uL (140-440); RDW Coefficient of Variation % 14.1 % (11.5-15.5); Red Blood Count 5.57 m/uL (4.30-5.90); White Blood Count* 8.94 K/uL (4.50-11.00)
[2023-12-04] MEDS: predniSONE 20 MG TABLET 60 MG PO (02:38)
[2023-12-04] MEDS: IPRAT-ALBUT 0.5-2.5 MG/3 ML NEB 1 NEB IH (02:38)
[2023-12-04 02:40] LABS: Slide Review Reflex No
[2023-12-04 02:42] LABS: HCO3 VBG 31 mmol/L (21-28); PCO2 VBG 51 mmHG (40-50); PO2 VBG 47.6 mmHG (25-47); pH VBG 7.391 (7.32-7.43)
[2023-12-04 02:49] LABS: Troponin, Point-of-Care* 0.02 ng/ml (0.01-0.04)
[2023-12-04 03:09] LABS: D Dimer Quantitative* 0.22 ug/ml (0.00-0.50)
--- OUTSIDE RECORDS SUMMARY | 2023-12-04 03:13 | XMS_ITS | Clinical Summary ---
Author Organization [facility] Address [place], [place] [address] Care Team Providers Care Trademark Affixer Name Role Phone Brian Martínez MD Primary Care Provider [phone] Allergies No known active allergies Medications Medication [...] meal. 30 Capsule 4 11/08/19 24 Discontinued Active Problems Problem Noted Date Diagnosed Date [...] Encounters Date Type Department Care Team Description 11/12/2023 Telephone [facility] [address] [facility] [place] [address] Brian Martínez MD Referral 11/05/2023 Refill [facility] [address] [place] [address] Brian Martínez MD Refill Request (Omeprazole) 10/25/2023 Telephone [facility] [address] [place] [address] Dino Nathan MD Imaging 10/25/2023 Telephone [facility] [address] [place] [address] Dino Nathan MD Results (CT chest) 10/25/2023 Orders Only [facility] [address] [place] [address] Dino Nathan MD 1 scan: (1-Ord) 10/22/2023 10/22/2023 3:30 PM CDT Ancillary Procedure [facility] [address] [facility] [address] [place] [address] 10/22/2023 1:25 PM CDT Ancillary Procedure [facility] [address] [place] [address] 10/22/2023 1:20 PM CDT Office Visit [facility] [address] [place] [address] Dino Nathan MD Shortness Of Breath; Chest Pain 10/22/2023 Telephone [facility] [address] [place] [address] Dino Nathan MD Error-please disregard 10/22/2023 Travel 10/22/2023 Telephone [facility] [address] [place] [address] Dino Nathan MD Sob; Chest Pain/problem 10/21/2023 Nurse Triage [facility] [address] [place] [address] Brian Martínez MD Chest Pain 10/16/2023 Telephone [facility] [address] [place] [address] Brian Martínez MD Medication Management (testosterone) 10/15/2023 10:45 AM CDT Orders Only [facility] [address] [place] [address] Lab, [place] [facility] 10/15/2023 Travel 09/27/2023 6:00 AM CDT Office Visit [facility] at [facility] [address] [facility] [address] Evelyn Grant MD Surgery Scheduled 09/27/2023 Orders Only [facility] Scanner 1 scan: (1-Ord) [facility], OPEN UMBILICAL HERNIA REPAIR WITH MESH, 09/27/2023 09/27/2023 Refill [facility] [address] [place] [address] Brian Martínez MD Refill Request (Trazodone) 09/23/2023 2:40 PM CDT Preop Visit [facility] [address] [place] [address] Brian Martínez MD Preoperative Exam (DOS: 09/27/2023 [facility]/Dr Evelyn Grant /Umbilical Hernia Repair) 09/23/2023 Travel 09/22/2023 Telephone [facility] [address] [place] [address] Brian Martínez MD Appointment (Pre op exam. Surgery is 09/27/23) 09/13/2023 12:30 PM CDT Office Visit [facility] [address] [place] [address] Evelyn Grant MD Consult (Umbilical hernia ) 09/13/2023 Travel 09/10/2023 Refill [facility] [address] [place] [address] Brian Martínez MD Refill Request (methocarbamoL (ROBAXIN) 750 mg tablet) from Last 3 Months Immunizations Name Administration Dates Next Due COVID-19 vaccine (Moderna 100mcg/0.5mL) [id number] 06/21/2020,05/24/2020 Hepatitis B (Adult) 12/10/2017,05/27/2017,2015 Influenza Virus, [...] Care Team (Late st Contact Info) Description 12/30/2023 12:45 PM CDT Office [facility] [address] [facility] [address] [place] [address] Ashli Martinez, CYNTHIA [address] [place] [address] 01/28/2024 3:30 PM PATCHER WOOD WELDER Telemedicine [facility] [address] [place] [address] Junior Nelson MD [address] [place], [place] [id number] Health Maintenance Due Date Last Done Comments [...] 01/09/20 06, 01/08/2006, 01/08/2005, Additional history exists Depression screening for age 12+ 08/29/2024 08/30/19 24 BMI (ht and wt on same day) for age 18+ 10/21/2024 10/22/2023, 08/30/2023, 10/01/2020, Additional history exists Tdap Completed 09/14/2013, 04/09, 05/01/2010 Zoster (shingles) series for age 50+ Completed 01/20/2021, 11/15/2020, 05/09/2018, Additional history exists COVID-19 vaccine series Completed 12/03/19, 11/27/2021, 07/17/2021, Additional history exists Medical Devices Implanted Type Area Shirt Ironer Device Identifier Shelf Expiration Date Model / Serial / Lot [id number] 1cc [place] Plus Paste Dbm Implanted:Qty: 1 on 09/07/2019 by Dane Wharton MD at [facility] Explanted:at [facility] (Quantity not on file) Spine Medtronic Spine/Ortho 11/23/2020 [id number] / [id number] / Spacer Cerv [id number] Vertestack Peek - [id number] Implanted:Qty: 1 on 09/07/2019 by Dane Wharton MD at [facility] Spine Medtronic Spine/Ortho 04/06/2027 [id number] / / [id number] Spacer Cerv [id number] Vertestack Peek - [id number] Implanted:Qty: 1 on 09/07/2019 by Dane Wharton MD at [facility] Spine Medtronic Spine/Ortho 10/28/2026 [id number] / / [id number] Screw Cerv Ant 4x17mm Atlantistranslational Fa Slf Drill - [id number] Implanted:Qty: 2 on 09/07/2019 by Dane Wharton MD at [facility] Spine Medtronic Spine/Ortho [id number] / / Screw Cerv Ant 4x17mm Atlantistranslational Va Slf Drill - [id number] Implanted:Qty: 4 on 09/07/2019 by Dane Wharton MD at [facility] Spine Medtronic Spine/Ortho [id number] / / Plate Cerv 2lvl 45mm Sibley Vision Elite Ant - [id number] Implanted:Qty: 1 on 09/07/2019 by Dane Wharton MD at [facility] Spine Medtronic Spine/Ortho [id number] / / Procedures Procedure Name Priority Date/Time [...] CDT CHOLESTEROL,TOTAL Routine 06/04/2003 8:0 0 AM PATCHER WOOD WELDER from Last 3 Months or Most Recently [...] For Patients: As a result of the Century Cures Act, medical imagingexams and procedure reports [...] 23(H) <20 mm/hr 2023 10:25 PM CDT [facility] Blood BLOOD SPECIMEN / Unknown Butterfly / Unknown 10/22/2023 2:03 PM CDT 10/22/2023 2:03 PM CDT Dino Nathan MD HEMATOLOGY [facility] [address] [place] [address], [place] * (ABNORMAL) CBC WITH AUTO DIFFERENTIAL (10/22/2023 2:03 PM CDT) WHITE BLOOD COUNT 13.9(H) 4.5 - 11.0 thou/cu mm 10/22/2023 3:44 PM CDT [facility] RED BLOOD COUNT 5.47 4.30 - 5.90 mil/cu mm 10/22/2023 3:44 PM CDT [facility] HEMOGLOBIN 16.6 13.5 - 17.5 g/dL 10/22/2023 3:44 PM CDT [facility] HEMATOCRIT 49.7 37.0 - 53.0 % 10/22/2023 3:44 PM CDT [facility] MCV 91 80 - 100 fL 10/22/2023 3:44 PM CDT [facility] MCH 30.3 26.0 - 34.0 pg 10/22/2023 3:44 PM CDT [facility] MCHC 33.4 32.0 - 36.0 g/dL 10/22/2023 3:44 PM CDT [facility] RDW 15.2 11.5 - 15.5 % 10/22/2023 3:44 PM CDT [facility] PLATELET COUNT 155 140 - 440 thou/cu mm 10/22/2023 3:44 PM CDT [facility] MPV 10.7 6.5 - 11.0 fL 10/22/2023 3:44 PM CDT [facility] Blood BLOOD SPECIMEN / Unknown Butterfly / Unknown 10/22/2023 2:03 PM CDT 10/22/2023 2:03 PM CDT Dino Nathan MD HEMATOLOGY [facility] [address] [place] [address], [place] [phone] * RED CELL MORPHOLOGY (10/22/2023 2:03 PM CDT) [facility] RBC COMMENT RBC morphology appears normal RBC morphology appears normal, RBC morphology within normal limits for newborns. 10/22/2023 3:44 PM CDT [facility] Blood BLOOD SPECIMEN / Unknown Butterfly / Unknown 10/22/2023 2:03 PM CDT 10/22/2023 2:03 PM CDT Dino Nathan MD HEMATOLOGY Performing Organization Address City/[facility]/ZIP Co de Phone Number [facility] [address] [place] [address], * PLATELET ESTIMATE (10/22/2023 2:03 PM CDT) [facility] PLATELET ESTIMATE Adequate Adequate, No estimate 10/22/2023 3:44 PM CDT [facility] Blood BLOOD SPECIMEN / Unknown Butterfly / Unknown 10/22/2023 2:03 PM CDT 10/22/2023 2:03 PM CDT Dino Nathan MD HEMATOLOGY Performing Organization Address City/[facility]/ZIP Co de Phone Number [address] [address], [place] [phone] * (ABNORMAL) MANUAL DIFFERENTIAL (10/22/2023 2:03 PM CDT) [facility] % NEUTROPHILS 85.0 % 10/22/2023 3:44 PM CDT [facility] % LYMPHOCYTES 12.0 % 10/22/2023 3:44 PM CDT [facility] % MONOCYTES 3.0 % 10/22/2023 3:44 PM CDT [facility] % EOSINOPHILS 0.0 % 10/22/2023 3:44 PM CDT [facility] % BASOPHILS 0.0 % 10/22/2023 3:44 PM CDT [facility] NEUTROPHILS ABSOLUTE 11.8(H) 1.7 - 7.0 thou/cu mm 10/22/2023 3:44 PM CDT [facility] LYMPHOCYTES ABSOLUTE 1.7 0.9 - 2.9 thou/cu mm 10/22/2023 3:44 PM CDT [facility] MONOCYTES ABSOLUTE 0.4 <0.9 thou/cu mm 10/22/2023 3:44 PM CDT [facility] EOSINOPHILS ABSOLUTE 0.0 <0.5 thou/cu mm 10/22/2023 3:44 PM CDT [facility] BASOPHILS ABSOLUTE 0.0 <0.3 thou/cu mm 10/22/2023 3:44 PM CDT [facility] Blood BLOOD SPECIMEN / Unknown Butterfly / Unknown 10/22/2023 2:03 PM CDT 10/22/2023 2:03 PM CDT Dino Nathan MD HEMATOLOGY Performing Organization Address [facility]/ZIP Co de Phone Number [facility] [address] [phone] * (ABNORMAL) C-REACTIVE PROTEIN (10/22/2023 2:03 PM CDT) C-REACTIVE PROTEIN 4.2(H) <0.5 mg/dL 10/23/2023 2:19 AM CDT [facility] Blood BLOOD SPECIMEN / Unknown Butterfly / Unknown 10/22/2023 2:03 PM CDT 10/22/2023 2:03 PM CDT Dino Nathan MD CHEMISTRY [facility] [address] [place] [address], * D-DIMER,QUANTITATIVE (10/22/2023 2:03 PM CDT) D-DIMER,QUANTI TATIVE 0.39 See comment FEU mcg/mL 10/23/2023 6:59 AM CDT [facility] Blood BLOOD SPECIMEN / Unknown Butterfly / Unknown 10/22/2023 2:03 PM CDT 10/22/2023 2:03 PM CDT Narrative [facility] - 10/23/2023 6:59 AM CDT The cut off value for exclusion of Deep Vein Thrombosis and / or Pulmonary Embolism is 0.50 FEU mcg/mL For patients greater than 50 years of age the upper limit is age dependent and was calculated with the formula: ?? (PATIENT AGE x 0.01) FEU mcg/mL = Upper limit of normal range Dino Nathan MD HEMATOLOGY [facility] [address] [place] [address], * PRO-BNP (10/22/2023 2:03 PM CDT) PRO-BNP 111 <125 pg/mL 10/23/2023 2:19 AM CDT [facility] Blood BLOOD SPECIMEN / Unknown Butterfly / Unknown 10/22/2023 2:03 PM CDT 10/22/2023 2:03 PM CDT Narrative [facility] - 10/23/2023 2:19 AM CDT The [...] failure. ? Dino Nathan MD SEND OUTS [facility] [address] [place] [address], * (ABNORMAL) COMP METABOLIC PANEL (10/22/2023 2:03 PM CDT) SODIUM 142 136 - 145 mmol/L 10/23/2023 2:[address] [facility] POTASSIUM 4.0 3.5 - 5.1 mmol/L 10/23/2023 2:20 AM CDT [facility] CHLORIDE 103 98 - 107 mmol/L 10/23/2023 2:20 AM CDT [facility] CO2,TOTAL 24 22 - 29 mmol/L 10/23/2023 2:20 AM CDT [facility] ANION GAP 15 5 - 18 10/23/2023 2:[address] [facility] GLUCOSE 70 70 - 99 mg/dL 10/23/2023 2:[address] [facility] CALCIUM 9.4 8.6 - 10.0 mg/dL 10/23/2023 2:20 AM CDT [facility] BUN 12 6 - 20 mg/dL 10/23/2023 2:20 AM T [facility] CREATININE 1.12 0.70 - 1.20 mg/dL 10/23/2023 2:20 AM T [facility] BUN/CREAT RATIO 11 10 - 20 2:20 AM T [facility] eGFR 77(L) >90 mL/min/1.7 3m2 10/23/2023 2:[address] [facility] Comment:As of 2021, eG FR is calculated by the CKD-EPI creatinine equation without race adjustment. ??eGFR can be influenced by muscle mass, exercise, and diet. ??The reported eGFR is an estimation only and is only applicable if the renal function is stable. ALBUMIN 3.4(L) 4.0 - 4.9 g/dL 10/23/2023 2:20 AM CDT [facility] PROTEIN,TOTAL 6.8 6.0 - 8.0 g/dL 10/23/2023 2:20 AM CDT [facility] BILIRUBIN,TOTAL 0.2 0.0 - 1.2 mg/dL 10/23/2023 2:20 AM CDT [facility] ALK PHOSPHATASE 79 40 - 129 IU/L 10/23/2023 2:20 AM CDT [facility] ALT (SGPT) 35 10 - 50 IU/L 10/23/2023 2:20 AM CDT [facility] AST (SGOT) 33 10 - 50 IU/L 10/23/2023 2:20 AM CDT [facility] Blood BLOOD SPECIMEN / Unknown Butterfly / Unknown 10/22/2023 2:03 PM CDT 10/22/2023 2:03 PM CDT Dino Nathan MD CHEMISTRY [facility] [address] [place] [address], [place] * XR CHEST 2 VIEWS PA [...] BIOAVAILABLE & FREE (10/15/2023 10:56 AM CDT) [facility] TESTOSTERONE, TOTAL 16(L) ng/dL 10/23 9:06 PM CDT [facility]) Comment: This test was developed and its performance characteristics determined by [facility] DEPT.. It has not been cleared or approved by the Food and Drug Administration. Reference Range: Adult Males >18 years ?926 - 055 This [facility] LC/MS-MS method is currently certified by the CDC Hormone Standardization Program (HoST). ??Adult male reference interval is based on a population of healthy nonobese males (BMI <30) between 19 and 39 years old. Britt et.al. JCEM 2017,102;9405-6470 PMID: [id number]. PERCENT FREE TESTOSTERONE (DIALYSIS) 1.8 % 10/24/2023 9:[address] [facility] (C[facility]) Comment: This test was developed and its performance characteristics determined by [facility]. It has not been cleared or approved by the Food and Drug Administration. Reference Range: Adult Males: 1.5 - 3.2 FREE TESTOSTERONE SERUM 2.9(L) pg/mL 10/24/2023 9:[address] [facility] (CET) Comment: Reference Range: Adult Males: 52 - 280 BIOAVAILABLE TESTOSTERONE PERCENT 32.8 % 10/24/2023 9:[address] [facility] (CET) BIOAVAILABLE TESTOSTERONE S 5.2(L) ng/dL 10/24/2023 9:[address] [facility] (CET) Comment: Reference Range: Males (50 - 69y): 95 - 285 Blood BLOOD SPECIMEN / Unknown Venipuncture / Unknown 10/15/2023 10:56 AM CDT 10/15/2023 10:57 AM CDT Narrative [facility] ([facility]) - 10/24/2023 9:06 PM CDT Performed at: ??01 - [employer] [address] [place] [address] ??[id number] General Doc: Roscoe Escobar MD, Phone: ??[phone] Brian Martínez MD SEND OUTS [facility] (CET) [address] [place] [address] * (ABNORMAL) BASIC METABOLIC PANEL (10/15/2023 10:56 AM CDT) SODIUM 141 136 - 145 mmol/L 10/16/2023 5:46 AM CDT [facility] POTASSIUM 3.9 3.5 - 5.1 mmol/L 10/16/2023 5:46 AM T [facility] CHLORIDE 103 98 - 107 mmol/L 10/16/2023 5:46 AM T [facility] CO2,TOTAL 24 22 - 29 mmol/L 10/16/2023 5:46 AM T [facility] ANION GAP 14 5 - 18 10/16/2023 5:46 AM T [facility] GLUCOSE 103(H) 70 - 99 mg/dL 10/16/2023 5:46 AM T [facility] CALCIUM 9.2 8.6 - 10.0 mg/dL 10/16/2023 5:46 AM [facility] BUN 12 6 - 20 mg/dL 10/16/2023 5:46 AM [facility] CREATININE 1.07 0.70 - 1.20 mg/dL 10/16/2023 5:46 AM T [facility] BUN/CREAT RATIO 11 10 - 20 5:46 AM [facility] eGFR 81(L) >90 mL/min/1.7 3m2 10/16/2023 5:46 AM T [facility] Comment:As of 2021, eG FR [...] 10:57 AM CDT Brian Martínez MD [facility]STRY [facility] [address] [place] [address], * SCAN-OPERATIVE/PROCEDURE REPORT (09/27/2023 12:00 AM CDT) Scanner OTHER * CHOLESTEROL,TOTAL (06/04/2003 8:00 AM PATCHER WOOD WELDER) CHOLESTEROL,TOT AL 160 110 - 199 mg/dL 06/04/2003 8:00 AM PATCHER WOOD WELDER Narrative 08/19/2003 12:05 AM CDT Ordered by [...] 1:25 PM 10/07/2015 2:42 PM Care Teams Trademark Affixer Relationship Specialty Start Date End Date Brian Martínez MD [address] [place] [address] PCP - General Family Practice 10/14/23
--- OUTSIDE RECORDS SUMMARY | 2023-12-04 03:13 | XMS_ITS | Encounter Summary ---
[facility] [address] [address] Care Team Providers Care Senior Game Advisor Name Role Phone Briana Vazquez PA-C Primary Care Provider [phone] Encounter Details Date Type Department Care Team [...] COVID19 05/07/2023 05/07/2023 05/07/2023 10:3 4 AM THERAPIST RRT documented as of this encounter Care Teams Senior Game Advisor Relationship Specialty Start Date End Date Briana Vazquez PA-C [address] [place] [address] PCP - General Physician Mechanical Commissioning Engineer 11/29/19 documented as of this encounter
--- OUTSIDE RECORDS SUMMARY | 2023-12-04 03:13 | XMS_ITS | Encounter Summary ---
Author Organization [facility] Address [address], [place] [address] Care Team Providers Care Unionmelt Operator Name Role Phone Briana Vazquez PA-C Primary Care Provider [phone] Reason for Referral * Consult/Transfer Care (Routine) - Closed Specialty Diagnoses / Procedures Referred By Pinky osorio Referred To Contact Diagnoses Encounter for long-term (current) [place] [address] [place] [address] Referral ID Status Reason Start Date Expiration Date Visits Re quested Visits Authorized [id number] Closed 12/30/2016 01/30/2017 1 1 Scheduling Instructions Your provider has recommended you to follow up with your Primary Reactor Operator. If you are currently seeing a [facility] provider for your primary care needs, a grinding room inspector will contact you within the next 3 business days to assist you in setting up this appointment. To schedule your appointment you may call [phone]. We suggest you call your health insurance [...] You can schedule your appointment online at HelpAround or by calling the appointment center at the phone number listed above. Thank you for choosing [facility]. Tanna Yen RN [facility] Refill [facility] Nurses Encounter Details Date Type Department Care Team (Late st Contact Info) Description 12/29/2016 Refill Order [facility] [address] [place] [address] [place] [address] [place] [address] Social History Tobacco Use Types Packs/Day Years [...] COVID19 05/07/2023 05/07/2023 05/07/2023 10:3 4 AM REACTOR TECHNICIAN documented as of this encounter Care Teams Unionmelt Operator Relationship Specialty Start Date End Date Briana Vazquez PA-C [address] [place] [address] PCP - General Physician Rotary Peel Oven Tender 11/29/19 documented as of this encounter
--- OUTSIDE RECORDS SUMMARY | 2023-12-04 03:13 | XMS_ITS | Encounter Summary ---
Author Organization [facility] Address [address] [place] [address] Care Team Providers Care Charging Manipulator Name Role Phone Briana Vazquez PA-C Primary Care Provider [phone] Encounter Details Date Type Department Care Team (Late st Contact Info) Description 07/29/2016 Refill Order [facility] [address] [place] [address] [place] [address] [place], [place] [id number] Social History Tobacco Use Types Packs/Day Years [...] COVID19 05/07/2023 05/07/2023 05/07/2023 10:3 4 AM PODIATRIC AIDE documented as of this encounter Care Teams Charging Manipulator Relationship Specialty Start Date End Date Briana Vazquez PA-C [address] [place] [address] PCP - General Physician Silver Wrapper 11/29/19 documented as of this encounter
--- OUTSIDE RECORDS SUMMARY | 2023-12-04 03:13 | XMS_ITS | Encounter Summary ---
Author Organization [email or web address] Address [address], [place] [address] Care Team Providers Care Harvest Contractor Name Role Phone Briana Vazquez PA-C Primary Care Provider [phone] Encounter Details Date Type Department Care Team [...] COVID19 05/07/2023 05/07/2023 05/07/2023 10:3 4 AM MANAGER BOOKS documented as of this encounter Care Teams Harvest Contractor Relationship Specialty Start Date End Date Briana Vazquez PA-C [address] [place] [address] PCP - General Physician Manufacturing Sr Engineer 11/29/19 documented as of this encounter
--- OUTSIDE RECORDS SUMMARY | 2023-12-04 03:13 | XMS_ITS | Clinical Summary ---
Author Organization [facility] Address [address] [place] [address] Care Team Providers Care Assembler Dc Field Yoke Name Role Phone Briana Vazquez PA-C Primary Care Provider [phone] Source Comments You are receiving this document [...] for each transition of care or referral. 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 Alcohol use disorder 09/11/2015 Migraine headache 11/19/2009 Hypertension 02/27/2009 Hyperlipidemia with target LDL less than 130 Overview (11/14/2014): ICD 10 Genital herpes 02/27/2009 Generalized headaches 02/27/2009 Chronic low back pain 02/27/2009 GERD (gastroesophageal reflux disease) 9 Immunizations Name Administration Dates Next Due HepB [...] = 0.6 oz pur e alcohol) Rare [facility] Utilities Answer Date Recorded In the past 12 months has [facility] [employer]ersolid, gas, oil, or water [employer] threatened to shut off services in your [...] to sleep or slept in a senior living (including now)? Patient declined 07/26/2023 Sex and [...] 06/21/2021 06/21/2018, 05/03/2017 COVID-19 Vaccine ( season) 2023 11/27/2021, 07/17/2021, 02/05/2021, Additional history exists Influenza [...] Procedure Name Priority Date/Time Associated Diagnosis Comments LIPID PANEL & DIRECT LDL (IF NEEDED) Add-On 05/07/2023 12:06 PM [facility] HGB A1C Routine 06/21/2018 12:06 PM CDT High risk medication use Screening, lipid HIV 1/2 AG/AB 4TH GEN Routine 05/27/2017 2:42 PM CDT Screening for viral disease HEPATITIS C ANTIBODY, WITH REFLEX Routine 05/27/2017 2:42 PM CDT Screening for viral disease from Last 3 Months or Most Recently Relevant to Health Maintenance Results * (ABNORMAL) Lipid Panel & Direct LDL (if Needed) (05/07/2023 12:06 PM [facility]) Cholesterol 91 0 - 199 mg/dL 05/07/2023 3:44 PM [facility] Triglyceride 77 <=149 mg/dL 05/07/2023 3:44 PM [facility] HDL Cholesterol 31(L) >=40 mg/dL 4 3:44 PM [facility] LDL, Calculated 45 <130 mg/dL 3:44 PM [facility] Non HDL Chol, Calculated 60 <=159 mg/dL 05/07/2023 3:44 PM [facility] Cholesterol/HDL Ratio 2.9 <=5.0 05/07/2023 3:44 PM [facility] Blood Venipuncture / Unknown 05/07/2023 12:06 PM [facility] 05/07/2023 12:13 PM [facility] Zaki Velásquez MD LAB_1 Performing Organization Address City/[facility]/ZIP Co de Phone Number [address] [address], [facility] * Hgb A1C (06/21/2018 12:06 PM CDT) Pathologist [facility] Hemoglobin A1C 5.0 <=5.6 % 06/21/2018 3:25 PM CDT [facility] Blood Venipuncture / Unknown 06/21/2018 12:06 PM CDT 06/21/2018 12:06 PM CDT Coretta Hawkins APRN, CNP LAB_1 Performing Organization Address [facility] Co de Phone Number [address] [address], [facility] [phone] * HIV 1/2 Ag/Ab 4th Generation (05/27/2017 2:42 PM CDT) HIV 1/2 AG/AB 4thGEN Negative (Non Reactive) [facility] Comment:HIV-1 p24 Ag and HIV -1/HIV-2 Ab not detected. 05/27/2017 2:42 PM CDT 05/27/2017 2:44 PM CDT Narrative [facility] - 05/27/2017 7:17 PM CDT Performed at [facility], [address] [place] [address] ??[id number] Briana Vazquez PA-C LAB_1 Performing Organization Address [facility] Co de Phone Number [facility] [phone] * Hepatitis C Antibody, with Reflex (05/27/2017 2:42 PM CDT) Anti-HCV Negative (Non Reactive) [facility] Comment: Antibodies to HCV not detected. Does not exclude the possibility of exposure to HCV. 05/27/2017 2:42 PM CDT 05/27/2017 2:44 PM CDT Narrative [facility] - 05/27/2017 6:44 PM CDT Performed at [facility], [address] [place] [address] ??[phone] Briana Vazquez PA-C LAB_1 [facility] [phone] from Last 3 Months or Most Recently [...] 5:39 PM 09/18/2015 2:12 PM Care Teams Assembler Dc Field Yoke Relationship Specialty Start Date End Date Briana Vazquez PA-C [address] [place] [address] PCP - General Physician Radiological Equipment Specialist 11/29/19
--- OUTSIDE RECORDS SUMMARY | 2023-12-04 03:13 | XMS_ITS | Encounter Summary ---
Author Organization [facility] Address [address] [address] Care Team Providers Care Time Study Technologist Name Role Phone Briana Vazquez PA-C Primary Care Provider [phone] Encounter Details Date Type Department Care Team [...] COVID19 05/07/2023 05/07/2023 05/07/2023 10:3 4 AM RESIDENT CARE AID documented as of this encounter Care Teams Time Study Technologist Relationship Specialty Start Date End Date Briana Vazquez PA-C [address] [place] [address] PCP - General Physician Logging Rafter Laborer 11/29/19 documented as of this encounter
[2023-12-04 03:23] LABS: PCR FLU A Negative PCR FLU A (Negative); PCR FLU B Negative PCR FLU B (Negative); PCR RSV Negative PCR RSV (Negative); SARS PCR* Negative SARS-CoV-2 (Negative)
[2023-12-04 04:07] LABS: Chloride* 101 mmol/L (96-114)
[2023-12-04 04:08] LABS: Potassium* 3.7 mmol/L (3.6-5.1); Sodium* 137 mmol/L (135-149)
[2023-12-04 04:09] LABS: Albumin* 3.4 g/dL (3.3-5.0)
[2023-12-04 04:10] LABS: Creatinine* 1.2 mg/dL (0.5-1.5); Est. Creatinine Clearance* 76.76; Estimated Glomerular Filt Rate 71 ml/min
[2023-12-04 04:11] LABS: Anion Gap 8 mEq/L (7-15); Blood Urea Nitrogen* 15 mg/dL (7-30); Calcium* 8.8 mg/dL (8.4-10.6); Carbon Dioxide* 28 mmol/L (20-32); Glucose* 132 mg/dL (60-115)
[2023-12-04 04:12] LABS: Alanine Aminotransferase* 45 U/L (4-50); Alkaline Phosphatase* 65 U/L (40-150); Aspartate Amino Transferase* 43 U/L (12-35); Bilirubin Direct* 0.3 mg/dL (0.0-0.5); Bilirubin Total* 0.6 mg/dL (0.1-1.5); Magnesium* 2.2 mg/dL (1.5-2.6); Total Protein* 6.1 g/dL (6.0-8.3)
[2023-12-04 04:13] LABS: Ethanol* < 0.01 % (0.01-0.03)
--- NOTE | 2023-12-04 04:16 | CRLHL7_ITS ---
For Patients: As a result of the Century Cures Act, medical imaging exams and procedure reports are released immediately into your electronic medical record. You may view this report before your referring provider. If you have questions, please contact your health care provider. INDICATION: Shortness of breath. Recent pneumonia. TECHNIQUE: CT chest without contrast. COMPARISON: 11/08/2023. FINDINGS: Lungs and pleura: Significantly improved lung infiltrates. Tiny miliary infiltrates persist, predominantly in the lower right lung. No pleural effusions, pleural thickening, or pneumothorax. Heart and vasculature: Heart size is normal. Thoracic aorta and pulmonary artery are normal in caliber. Lymph nodes/mediastinum: No mediastinal, hilar, or axillary adenopathy. Chest wall: No masses. Upper abdomen: No significant findings. Bones: Unremarkable for age. IMPRESSION: Significantly improved pneumonia. Remainder of the exam is unremarkable and unchanged. No other finding to explain shortness of breath. Please note that all CT scans at this facility use dose modulation, iterative reconstruction, and/or weight-based dosing when appropriate to reduce radiation dose to as low as reasonably achievable. Dictated by John Gandhi MD @ 12/04/2023 5:43:46 AM (Electronically Signed)
[2023-12-04 04:29] LABS: C Reactive Protein* < 0.5 mg/dL (0.5-1.0); NT Pro B Type NatriureticPept* < 20 pg/mL
[2023-12-04 06:59] LABS: Appearance Urine Clear (Clear); Bilirubin Urine Negative (Negative); Blood Urine Negative (Negative); Color Urine Dark yellow (Yellow); Glucose Urine Negative (Negative); Ketones Urine Negative (Negative); Leukocyte Esterase Urine Negative (Negative); Nitrite Urine Negative (Negative); Protein Urine Negative (Negative); Specific Gravity Urine 1.015 (1.000-1.030); pH Urine 6.5 (5.0-8.5)
[2023-12-04 07:10] LABS: RBC Urine 0-2 (0-2); Squamous Epithelial Cell Urine Few (None-Few); WBC Urine 0-2 (0-5)
[2023-12-04 07:11] LABS: Amphetamine Screen Urine Negative (Negative); Benzodiazepines Screen Urine POSITIVE (Negative); Cannabinoid Screen Urine POSITIVE (Negative); Cocaine Screen Urine Negative (Negative); Methadone Screen Urine Negative (Negative); Methamphetamines Screen Urine POSITIVE (Negative); Opiate Screen Urine Negative (Negative); Phencyclidine Screen Urine Negative (Negative); Tricyclic Antidepressant Urine POSITIVE (Negative)
[2023-12-04 07:12] LABS: Barbiturate Screen Urine Negative (Negative); Buprenorphine Screen Urine Negative (Negative); Oxycodone Screen Urine Negative (Negative)
[2023-12-04] MEDS: OMEPRAZOLE 20 MG CAPSULE DR PO (07:27)
== END 2023-12-04 07:42 | disposition home or self-care (01) ==
PROVIDERS: Emergency Provider Emergency Medicine; PCP Family Medicine
DX: R06.02 Shortness of breath (principal); F12.90 Cannabis use, unspecified, uncomplicated; F15.90 Other stimulant use, unspecified, uncomplicated; R07.9 Chest pain, unspecified; G89.29 Other chronic pain; Z87.01 Personal history of pneumonia (recurrent)
CPT/HCPCS: 36415; 71045; 71250; 80048; 80076; 80306; 81001; 82077; 82803; 83605; 83735; 83880; 84484; 85025; 85379; 86140; 87631; 93005; 94761; 99284; 99285; A9270; J7512

== ENCOUNTER 2024-07-17 08:46 | Emergency (ER) | payer OTHER, MEDICAID, SELFPAY ==
[2024-07-17 08:57] VITALS: BP 183/106; PULSE 72; RESP 20; TEMP 36.2; O2SAT 96; BMI 29.7
--- NOTE | 2024-07-17 09:16 | CRLHL7_ITS ---
For Patients: As a result of the Cures Act, medical imaging exams and procedure reports are released immediately into your electronic medical record. You may view this report before your referring provider. If you have questions, please contact your health care provider. INDICATION: Short of breath, concern for pneumonia COMPARISON: 12/04/[address] TECHNIQUE: PA and lateral 2 view chest. FINDINGS: Lung volumes are good. Mild fine interstitial opacities. No pulmonary edema. Focal lenticular extrapleural thickening along the right lateral chest. This extends over a craniocaudal distance of about 8 centimeters and measures up to 1 centimeter in maximum thickness. This corresponds to the focal extrapleural fat deposition seen on the prior chest CT. No pleural effusion. No pneumothorax. No pneumomediastinum. Normal cardiomediastinal silhouette. Bones: No acute or healing fractures. No focal bone lesion seen.. IMPRESSION: Mild fine interstitial opacities usually seen with viral or atypical infections. Dictated by Kyleigh Hancock MD @ 07/17/2024 9:38:02 AM (Electronically Signed)
--- OUTSIDE RECORDS SUMMARY | 2024-07-17 09:33 | XMS_ITS | Encounter Summary ---
Author Organization [facility] Address [address], [place] [address] Care Team Providers Care Career Technology Teacher Name Role Phone Briana Vazquez PA-C Primary Care Provider [phone] Encounter Details Date Type Department Care Team [...] Recorded Sex Assigned at Not on file Legal Sex Male 4:34 AM CDT Gender Identity Not on file Sexual Orientation Not on file Occupation Industry Job Start Date Job End Date [employer] Not on file Not on file Not on file documented as of this encounter Plan of Treatment Not on file documented as of this encounter Visit Diagnoses Not on filedocumented in this encounter Additional Health Concerns Infection Onset Date Last Indicated Resolved Time R/O COVID19 05/07/2023 05/07/2023 05/07/2023 10:3 4 AM CODIFIER documented as of this encounter Care Teams Career Technology Teacher Relationship Specialty Start Date End Date Briana Vazquez PA-C [address] [place] [address] PCP - General Physician Tube Washer 11/29/19 documented as of this encounter
--- OUTSIDE RECORDS SUMMARY | 2024-07-17 09:33 | XMS_ITS | Encounter Summary ---
Author Organization [facility] Address [address] [place] [address]. [place] [address] Care Team Providers Care Pattern Cutter Name Role Phone Sai Saxena MD Primary Care Provider Unavailable [facility] Primary Care Provider Encounter Details Date Type Department Care Team (Late st Contact Info) Description 09/07/2011 [facility] [id number] [place] [address] [phone] [facility] Social History Tobacco Use Types Packs/Day Years Used Date Smoking Tobacco: Former Cigarettes Q uit: 12/31/1986 Alcohol Use Standard Drinks/Week Comments Yes 0 (1 standard drink = 0.6 oz pur e alcohol) 1 case of beer a year Sex and Gender Information Value Date Recorded Sex Assigned at Not on file Legal Sex Male 3:42 AM 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
--- OUTSIDE RECORDS SUMMARY | 2024-07-17 09:33 | XMS_ITS | Clinical Summary ---
Author Organization [facility] Address [address] [place] [address] Care Team Providers Care Milling Machine Tender Name Role Phone [facility] Primary Care Provider Allergies Active Allergy Reactions Criticality Noted Date Comments No Known Drug Allergy 12/31/2008 Medications tolterodine (DETROL) 2 MG tablet Take 4 mg by mouth daily Active buPROPion (WELLBUTRIN XL) 150 MG 24 hr tablet Take 150 mg by mouth daily with bupropion XL 300mg tablet for [id number]. Active buPROPion (WELLBUTRIN XL) 300 MG 24 hr tablet Take 300 mg by mouth daily with bupropion XL 150mg for a [id number]. Active tamsulosin (FLOMAX) 0.4 MG capsule Take 0.4 mg by mouth daily Active omeprazole (PRILOSEC) [address] capsule Take 20 mg by mouth daily one hour before a meal Active OLANZapine (ZYPREXA) 20 MG tablet Take 20 mg by mouth At Bedtime Active QUEtiapine (SEROQUEL) 25 MG tabletIndication s:Schizophrenia, unspecified type (H) Take 2 tablets (50 mg) by mouth 3 times daily 180 tablet 9 Active Active Problems Problem Noted Date Diagnosed Date Coma 04/24/2018 Altered mental state 09/14/2013 Hypertension goal BP (blood pressure) < 140/90 1 03/19/2012 Neck pain 09/14/2011 HYPERLIPIDEMIA LDL GOAL <130 01/05/2010 Hypercholesteremia 03/06/2009 Seborrhea 12/31/2008 Herpes simplex virus (HSV) infection 02/08/2007 Overview (12/07/2014): Problem list name updated by automated process. Provider to review Degeneration of lumbar or lumbosacral interverte bral disc 02/08/2007 Resolved Problems Problem Noted Date Diagnosed Date Resolved Date Health Shelter 09/22/2013 08/23/2023 Overview (09/22/2013): Status: Unable to reach (no active care coordination) Corridor Redevelopment Manager: Cass George RN [phone] See Letters for [facility] Emergency Care Plan Immunizations Immunization Administration Dates Next Due Influenza (IIV3) PF 01/08/2006,01/08/2005,2001,12/22/1999 TD,PF 7+ (Tenivac) 05/21/2003,07/22/1999 TDAP Vaccine (Adacel) 09/14/2013 Family History Medical History Relation Comments Hypertension Father Relation Status Comments Brother Alive 4 Father Alive Maternal Grandfather Maternal Grandmother Mother Alive Paternal Grandfather Paternal Grandmother Sister Alive Social History Tobacco Use Types Packs/Day Years Used Date Smoking Tobacco: Former Cigarettes Q uit: 12/31/1986 Smokeless Tobacco: Never Alcohol Use Standard Drinks/Week Comments Yes 0 (1 standard drink = 0.6 oz pur e alcohol) 1 case of beer a year Adolescent Education Answer Date Record ed Getting School Help Needed Not on file 12/12 Sex and Gender Information Value Date Recorded Sex Assigned at Not on file Legal Sex Male 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 Gender Identity Not on file Sexual Orientation Not on file Last Filed Vital Signs Vital Sign Reading Time Taken Comments Blood Pressure 149/91 05/02/2018 3:40 PM GLUE BONE DRIER Pulse 82 04/29/2018 8:00 PM GLUE BONE DRIER Temperature 35.8 C (96.5 F) 05/02/2018 3:40 PM GLUE BONE DRIER Respiratory Rate 20 05/02/2018 3:40 PM GLUE BONE DRIER Oxygen Saturation 94% 05/02/2018 3:40 PM GLUE BONE DRIER Inhaled Oxygen Concentration - - Weight 96.7 kg (213 lb 1.6 oz) 05/02/2018 5:39 A M GLUE BONE DRIER Height 185.4 cm (6' 1) 04/24/2018 1:00 PM GLUE BONE DRIER Body Mass Index 28.12 04/24/2018 1:00 PM GLUE BONE DRIER Plan of Treatment Not on file Insurance [employer] Advance Directives For more information, please contact: [phone] * Full Code (Latest Code Status on File) Date Activated Date Inactivated Comments 05/02/2018 2:55 PM Question Answer Comments Code status determined by: Discussion with patie nt/legal decision maker * Full Code Date Activated Date Inactivated Comments 04/24/2018 1:45 PM 05/02/2018 2:55 PM Question Answer Comments Code status determined by: Discussion with patie nt/legal decision maker * Full Code Date Activated Date Inactivated Comments 09/17/2013 11:33 AM 04/24/2018 9:03 AM * Full Code Date Activated Date Inactivated Comments 09/15/2013 1:11 PM 09/17/2013 11:33 AM * Full Code Date Activated Date Inactivated Comments 09/14/2013 5:53 PM 09/15/2013 1:11 PM Care Teams Milling Machine Tender Relationship Specialty Start Date End Date [facility] [address] [place] [address] PCP - General 08/29/15
--- OUTSIDE RECORDS SUMMARY | 2024-07-17 09:33 | XMS_ITS | Clinical Summary ---
Author Organization [employer] [facility] Address [address] [place] [address] Care Team Providers Care Av Specialist Name Role Phone Brian Martínez MD Primary Care Provider [phone] Allergies No known active allergies Medications rOPINIRole (REQUIP) 2 mg tabletIndicatio ns:Tremor Take 1 Tablet (2 mg) by mouth two times daily. 90 Tablet 1 08/30/19 24 Active desonide (TRIDESILON) 0.05 % cream Apply topically to affected area(s) two times daily. 11/17/19 23 Active ALPRAZolam (XANAX) 1 mg tablet Take 1 mg by mouth at bedtime if needed (sleep). 09/13/19 24 Active traZODone (DESYREL) 100 mg tabletIndicatio ns:Schizophreni a, unspecified type (HC) TAKE TWO TABLET BY MOUTH DAILY AT BEDTIME 180 Tablet 1 09/28/19 24 Active Needle, Disp, 23 G (Easy Touch Hypodermic Needle) 23 gauge x 1 ndleIndications :Hypotestostero nemia Use to inject testosterone intramuscularly every 2 weeks. 50 Each 3 01/28/20 24 Active prazosin (MINIPRESS) 2 mg capsuleIndicati ons:Drug-induce d mood disorder (HC) TAKE ONE CAPSULE BY MOUTH ONE TIME DAILY AT BEDTIME 30 Capsule 02/03/20 24 Active QUEtiapine (SEROQUEL) 400 mg tabletIndicatio ns:Drug-induced mood disorder (HC),Insomnia, idiopathic TAKE TWO TABLETS BY MOUTH DAILY AT BEDTIME 180 Tablet 02/27/20 24 Active OLANzapine (ZYPREXA) 20 mg tabletIndicatio ns:Insomnia, idiopathic TAKE ONE TABLET BY MOUTH ONE TIME DAILY AT BEDTIME 90 Tablet 02/27/20 24 Active diclofenac (VOLTAREN) 75 mg delayed-release tabletIndicatio ns:Chronic left shoulder pain,Chronic low back pain, unspecified back pain laterality, unspecified whether sciatica present Take 1 Tablet (75 mg) by mouth two times daily with meals. For severe pain. Do not take other NSAIDs with this ( no ibuprofen and no naproxen). 180 Tablet 1 03/23/19 25 Active methocarbamoL 750 mg tabletIndicatio ns:Chronic low back pain, unspecified back pain laterality, unspecified whether sciatica present Take 1 Tablet (750 mg) by mouth three times daily. 270 Tablet 06/16/19 25 Active gabapentin 400 mg capsuleIndicati ons:Chronic left shoulder pain Take 3 Capsules (1,200 mg) by mouth three times daily. 810 Capsule 06/16/19 25 Active omeprazole 20 mg Delayed-Release capsuleIndicati ons:Gastroesoph ageal reflux disease without esophagitis Take 1-2 Capsules (20-40 mg) by mouth once daily before a meal. For stomach acid. 135 Capsule 06/16/19 25 Active tamsulosin 0.4 mg capsuleIndicati ons:Lower urinary tract symptoms Take 1 Capsule (0.4 mg) by mouth once daily after a meal. 90 Capsule 06/16/19 25 Active propranoloL 20 mg tabletIndicatio ns:Tremor Take 1 Tablet (20 mg) by mouth two times daily. 180 Tablet 06/16/19 25 Active sildenafil citrate 100 mg tabletIndicatio ns:Erectile dysfunction, unspecified erectile dysfunction type Take 1 Tablet (100 mg) by mouth once daily if needed for Erectile Dysfunction. Take 30 minutes to 4 hours before sexual activity. Max 100mg/24hr. 10 Tablet 06/16/19 25 Active amLODIPine 5 mg tabletIndicatio ns:Essential hypertension Take 1 Tablet (5 mg) by mouth once daily. 90 Tablet 06/16/19 25 Active atorvastatin 20 mg tabletIndicatio ns:Hypercholest erolemia Take 1 Tablet (20 mg) by mouth once daily. For Cholesterol. 90 Tablet 06/16/19 25 Active metoprolol succinate 100 mg Sustained-Relea se tabletIndicatio ns:Essential hypertension Take 1 Tablet (100 mg) by mouth once daily. 90 Tablet 3 06/16/19 25 Active testosterone cypionate (DEPO-TESTOSTER ONE) 200 mg/mL injectionIndica tions:Hypotesto steronemia Inject 1 mL (200 mg) intramuscular every 2 weeks. 10 mL 3 01/28/20 24 025 Discontin ued(*Ambar ent states no longer taking) syringe with needle, safety (Easy Touch FlipLock Syringe) 3 mL 18 gauge x 1 1/2 syrgIndications :Hypotestostero nemia Use to draw up testosterone every 2 weeks. 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 000 Resolved Problems Problem Noted Date Diagnosed Date Resolved Date Drug-induced mood disorder 09/25/2015 0 06/18/2024 Amphetamine use disorder, severe, dependence 6 06/18/2024 DERMATITIS 04/14/2005 11/05/2005 RASH 04/14/2005 11/05/2005 SPRAIN - ANKLE 09/23/1999 11/05/2005 HERPES, GENITAL 04/08/1999 11/05/2005 Encounters Date Type Department Care Team Description 06/27/2024 8:40 AM CDT Telemedicine [facility] [address] [place] [address] Brian Martínez MD Erectile Dysfunction 06/23/2024 Travel 06/21/2024 10:30 AM CDT Telemedicine [facility] [address] [place] [phone] Meg Abbott, FLEX O WRITER OPERATOR Telehealth (Virtual visit, no vitals taken ); Erectile Dysfunction 06/21/2024 Travel 06/15/2024 11:10 AM CDT Office Visit [facility] [address] [place] [address] Brian Martínez MD Medication Management (Review all medications ) 06/15/2024 Travel 06/14/2024 Refill [facility] [address] [place] [address] Brian Martínez MD Refill Request (Propranolol, Methocarbamol) 06/07/2024 Refill [facility] [address] [place] [address] Brian Martínez MD Refill Request (Amitriptyline) from Last 3 Months Immunizations Immunization Administration Dates Next Due COVID-19 vaccine (Moderna [...] PAIN~negat roxanna for anesthetic problems or CAD. Dementia Paternal Aunt Relation Name Status Comments Father Other 1 Other 2 Paternal Aunt Alive Social History Tobacco Use Types Packs/Day Years Used Date Smoking Tobacco: Former Cigarettes Smokeless Tobacco: Never Tobacco Cessation:Counseling Given: Not Answered Comments:when he was 24 years old he quit Alcohol Use Standard Drinks/Week Comments Yes 5 (1 standard drink = 0.6 oz pur e alcohol) 4 shots a day PHQ-2 Answer Date Recorded PHQ-2 TOTAL SCORE 3 08/30/2023 Social Connections Answer Date Recorded Do you often feel lonely or isolated from those around you? 4 09/23/2023 Financial Resource Strain Answer Date R ecorded Difficulty of Paying Living Expenses 3 09/23/2023 Difficulty of Paying Living Expenses Not on file 09/23/2023 Food Insecurity Answer Date Recorded Do you worry your food will run out before you are able to buy more? 1 09/23/2023 Transportation Needs Answer Date Record ed Does lack of transportation keep you from medica l appointments? 1 09/23/2023 Does lack of transportation keep you from work, meetings or getting things that you need? 1 09/23/2023 Housing Stability Answer Date Recorded What is your housing situation today? 1 09/23/2023 Utilities Answer Date Recorded Do you have trouble paying f or utilities (for example, heat, electricity, water, phone)? 1 09/23/2023 Sex and Gender Information Value Date Recorded Sex Assigned at Not on file Legal Sex Male 5:27 AM MAT SEWER Gender Identity Not on file Sexual Orientation Not on file Obstetrics History Last Filed Vital Signs Vital Sign Reading Time Taken Comments Blood Pressure 138/82 06/15/2024 12:20 PM CDT Pulse 68 06/15/2024 10:56 AM CDT Temperature 36.8 C (98.2 F) 10/01/2020 2:11 PM CDT Respiratory Rate 14 09/08/2019 4:42 AM CDT Oxygen Saturation 97% 06/15/2024 10: 56 AM CDT Inhaled Oxygen Concentration - - Weight 107.2 kg (236 lb 4.8 oz) 025 10:56 AM CDT Height 188 cm (6' 2.02) 10/22/2023 1:17 PM CDT Body Mass Index 30.33 10/22/2023 1:17 PM CDT Plan of Treatment Upcoming Encounters Date Type Department Care Team (Late st Contact Info) Description 08/15/2024 10:15 AM CDT Orders Only [facility] [address] [place] [address] [place], [place] 01/22/2025 10:30 AM MAT SEWER Telemedicine [facility] [address] [address] [place] [place] [phone] Junior Nelson MD [address] [facility] [address] [place] [address] Health Maintenance Due Date Last Done Comments HIV for age 15-65 1980 Hepatitis C screening for ag e 18-79 12/09/1983 Pneumococcal series for age 50+ (1 of 2 - PCV) 1984 Colonoscopy through age 75 2010 Lipids for age 45-75 2010 06/04/2003, 06/04/19 04 Tetanus booster 09/15/2023 09/14/2013, 04/09, 05/01/2010, Additional history exists Depression screening for age 12+ 08/29/2024 08/30/19 BMI (ht and wt on same day) for age 18+ 10/21/2024 10/22/2023, 08/30/2023, 10/01/2020, Additional history exists Influenza Vaccine (Season Ended) 2024 01/08/2006, 01/08/2006, 01/08/2005, Additional history exists Tdap Completed 09/14/2013, 04/09, 05/01/2010 Zoster (shingles) series for age 50+ Completed 01/20/2021, 11/15/2020, 05/09/2018, Additional history exists COVID-19 vaccine series Completed 11/16/19, 12/02/2022, 11/27/2021, Additional history exists Medical Devices Implanted Type Area Research Laboratory Specialist Device Identifier Shelf Expiration Date Model / Serial / Lot [id number] 1cc Marion Plus Paste Dbm Implanted:Qty: 1 on 09/07/2019 by Dane Wharton MD at [facility] Explanted:at [facility] (Quantity not on file) Spine Medtronic Spine/Ortho 11/23/2020 [id number] / [id number] / Spacer Cerv [id number] Vertestack Peek - [id number] Implanted:Qty: 1 on 09/07/2019 by Dane Wharton MD at [facility] Spine [employer]tronic Spine/Ortho 04/06/2027 [id number] / / [id number] Spacer Cerv [id number] Vertestack Peek - [id number] Implanted:Qty: 1 on 09/07/2019 by Dane Wharton MD at [facility] Spine Medtronic Spine/Ortho 10/28/2026 [id number] / / [id number] Screw Cerv Ant 4x17mm Atlantistranslational Fa Slf Drill - [id number] Implanted:Qty: 2 on 09/07/2019 by Dane Wharton MD at [facility] Spine Medtronic Spine/Ortho [id number] / / Screw Cerv Ant 4x17mm Atlantistranslational Va Slf Drill - [id number] Implanted:Qty: 4 on 09/07/2019 by Dane Wharton MD at [facility] Spine Medtronic Spine/Ortho [id number] / / Plate Cerv 2lvl 45mm [place] Vision Elite Ant - [id number] Implanted:Qty: 1 on 09/07/2019 by Dane Wharton MD at [facility] Spine Medtronic Spine/Ortho [id number] / / Procedures Procedure Name Priority Date/Time Associated Diagnosis Comments CHOLESTEROL,TOTAL Routine 06/04/2003 8:0 0 AM MAT SEWER from Last 3 Months or Most Recently Relevant to Health Maintenance Results * CHOLESTEROL,TOTAL (06/04/2003 8:00 AM MAT SEWER) CHOLESTEROL,TOT AL 160 110 - 199 mg/dL 06/04/2003 8:00 AM MAT SEWER Narrative 08/19/2003 12:05 AM CDT Ordered by an unspecified provider. us Other Clinical Staff CHEMISTRY Final Resul t from Last 3 Months or Most Recently Relevant to Health Maintenance Insurance MEDICAID [employer] G[employer] WORKERS COMP * Guarantor: HUY PINO Account Type Relation to Patient Date of Phone Billing Address [facility] [address] [place] [address] [facility] DEPT [id number] [id number] Advance Directives * Full Code (Latest Code [...] 1:25 PM 10/07/2015 2:42 PM Care Teams Av Specialist Relationship Specialty Start Date End Date Brian Martínez [place] [address] PCP - General Family Practice 10/14/23
--- OUTSIDE RECORDS SUMMARY | 2024-07-17 09:33 | XMS_ITS | CCD ---
Author Organization Unknown Care Team Providers Care Environmental Test Technician Name Role Phone Dress Designer, [place] Primary Care Provider Unava ilable Unavailable Chronic Care Management Unavaila ble Summary Purpose DataExchange Insurance Providers Payer name Policy type / Coverage type Covered republican ID Effective Begin Date Effective End Date [employer] Commercial Insurance [id number] Unkn own Family History Family History data not found Medication Administered No Medication Administered data Reason For Visit No Reason For Visit data
--- OUTSIDE RECORDS SUMMARY | 2024-07-17 09:33 | XMS_ITS | Encounter Summary ---
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
--- OUTSIDE RECORDS SUMMARY | 2024-07-17 09:33 | XMS_ITS | Data Portability ---
Author Organization [place] [facility] Address [address] [facility] [address] [place] [address] Care Team Providers Care Hand Router Operator Name Role Phone JUVESAUL Primary Care Provider [phone] Assessment No assessment recorded. Plan of Treatment Reminders Order Date Submit Date Provider Last Modified By Organization Details Last Modified Time Details Appointments None recorded. Lab None recorded. Referral None recorded. Procedures None recorded. Surgeries None recorded. Imaging None recorded. Medication Orders testosteron e cypionate 200 mg/mL intramuscul ar oil 2024 025 [email or web address] [id number], [address], [address], 13:11:11 testosteron e cypionate 200 mg/mL intramuscul ar oil 2024 025 URSULA [id number], [address], [address], 12:59:53 Patient TargetsNo targets recorded. Patient Instructions Encounter Date Encounter Id Patient Instructions Last Modified By Organization Details Last Modified Time 07/14/2024 [id number] will check lab results from [facility]. if those are OK, will send testo rx and also send rx for trimix to the compounding pharmacy [place] [address] Not available 07/14/2024 11:43:41 Reason for Referral None Reported. Problems Name Problem SNOMED Code Status Onset Date Resolution Date Notes Provider Name and Address Organization Details Recorded Time Male hypogonadism 48712233 Active 2024 GAEL K[facility] 11:37:10 Secondary erectile dysfunction 933676698 Active 2024 Johnathan hoff [facility] 5 11:37:10 Problem Notes None recorded. Medical Equipment None Reported. Allergies Allergen ID Allergen Name Allergen Category Reaction Reaction Severity Criticality Documentation Date Start Date Code Code System Note Provider Name and Address Organization Details Recorded Time [id number] naltrexon e medicatio n other Not available Not available 07/14/20242022 7243 RxNorm Pt told RN he did not like it so he stopp ed donald cornell it. Johnathan hoff [facility] 5 11:02:18 Medications Name Sig Start Date Stop Date Status Note LastModified by Organization Details LastModified Time cyclobenzapr ine 10 mg tablet TAKE ONE TABLET BY MOUTH THREE TIMES DAILY NEEDED for spasms* active Not Available Not Available Not Available nystatin 100,000 unit/mL oral suspension Swish and swallow 5 mL (500,000 units) by mouth four times daily.* active Not Available Not Available No t Available atorvastatin 20 mg tablet TAKE ONE TABLET BY MOUTH ONE TIME DAILY* active Not Available Not Available Not Available alprazolam 1 mg tablet Take 1 tablet by mouth once as needed for extreme anxiety* active Not Available Not Available No t Available hydrocodone 5 mg-acetamino phen 325 mg tablet TAKE ONE TABLET BY MOUTH EVERY SIX HOURS NEEDED FOR PAIN* active Not Available Not Available No t Available prednisone 20 mg tablet TAKE TWO TABLETS BY MOUTH DAILY* active Not Available Not Available No t Available metoprolol succinate ER 100 mg tablet,exten ded release 24 hr TAKE ONE TABLET BY MOUTH ONE TIME DAILY* active Not Available Not Available Not Available gabapentin 400 mg capsule TAKE THREE CAPSULES BY MOUTH THREE TIMES DAILY* active Not Available Not Available No t Available amlodipine 5 mg tablet TAKE ONE TABLET BY MOUTH ONE TIME DAILY* active Not Available Not Available Not Available sildenafil 100 mg tablet Take 1 Tablet by mouth once daily if needed for Erectile Dysfunction . Take 30 minutes to 4 hours before sexual activity. Max 100mg/24hr. * active Not Available Not Available No t Available Hypodermic Ravenel 23 gauge x 1 Use to inject testosteron e intramuscul stephie every 2 weeks.* active Not Available Not Available No t Available methocarbamo l 750 mg tablet TAKE ONE TABLET BY MOUTH THREE TIMES DAILY* active Not Available Not Available No t Available tamsulosin 0.4 mg capsule TAKE ONE CAPSULE BY MOUTH ONE TIME DAILY AFTER A MEAL* active Not Available Not Available No t Available trazodone 100 mg tablet TAKE TWO TABLETS BY MOUTH DAILY AT BEDTIME* active Not Available Not Available Not Available ropinirole 2 mg tablet take 1 tablet by mouth twice daily* active Not Available Not Available No t Available omeprazole 20 mg capsule,tamara yed release TAKE ONE OR TWO CAPSULE BY MOUTH DAILY BEFORE MEALS* active Not Available Not Available No t Available diclofenac sodium 75 mg tablet,delay ed release TAKE 1 TABLET BY MOUTH TWO TIMES DAILY WITH MEALS FOR SEVERE PAIN. DO NOT TAKE OTHER NSAIDS ( NO IBUPROFEN AND NO NAPROXEN).* active Not Available Not Available Not Available testosterone cypionate 200 mg/mL intramuscula r oil Inject 1.5 mL every 2 weeks by intramuscul ar route for 30 days. 2024 active Not Available Not Available Not Avai lable levofloxacin 750 mg tablet Take 1 Tablet (750 mg) by mouth once daily for 5 days.* active Not Available Not Available No t Available albuterol sulfate HFA 90 mcg/actuatio n aerosol inhaler INHALE TWO PUFFS BY MOUTH EVERY FOUR HOURS NEEDED* active Not Available Not Available N ot Available propranolol 20 mg tablet TAKE ONE TABLET BY MOUTH TWICE DAILY* active Not Available Not Available No t Available BD Luer-Vik Syringe 3 mL 18 x 1 1/2 Use to draw up testosteron e every 2 weeks.* active Not Available Not Available No t Available amitriptylin e 100 mg tablet TAKE ONE TABLET BY MOUTH AT BEDTIME* active Not Available Not Available No t Available olanzapine 20 mg tablet Take 1 Tablet by mouth Daily* active Not Available Not Available No t Available prazosin 2 mg capsule TAKE ONE CAPSULE BY MOUTH AT BEDTIME* active Not Available Not Available No t Available amoxicillin 875 mg-potassium clavulanate 125 mg tablet TAKE ONE TABLET BY MOUTH TWICE DAILY* active Not Available Not Available No t Available quetiapine 400 mg tablet Take 2 tablets by mouth at bedtime* active Not Available Not Available No t Available Vitals Date Recorded Body height Body mass index (BMI) Body weight Provider Name and Address Organization Details Last Updated DateTime 07/14/2024 185.42 cm 31 kg/m2 923424.21 g [facility] 07/14/2024 11:02:06 Social History Question Answer Notes LastModified by Organizat ion Details LastModified Time Tobacco Smoking Status Former Smoker GAEL Kaur [facility] 07/14/2024 11:02:52 What Is Your Level Of Caffeine Consumption? Occasional Information not available 07/14/2024 When Did You Quit Smoking? 11-15yearssince lastcigarette Information not available 07/14/2024 What Was The Date Of Your Most Recent Tobacco Screening? 07/14/2024 Information not available 07/14/2024 Have You Ever Been Counseled For Unhealthy Alcohol Use? No Information not available 07/14/2024 How Much Tobacco Do You Smoke? 1 PPD Information not available 07/14/2024 Sex: Unknown Functional Status Question Answer Note LastModified by Organizat ion Details LastModified Time Do you use any illicit or recreational drugs? No Information not available 07/14/2024 What is your level of alcohol consumption? Occasional Information not available 07/14/2024 Mental Status None recorded. Family History Nothing Reported. Medical History Condition Response Other N High Blood Pressure Y Kidney Stones N Lung Disease N Depression N GERD/Acid Reflux Y Diabetes N Sexually Transmitted Infection N Bleeding Disorder N Cancer N High Cholesterol N Heart Disease N Past Encounters Encounter ID Performer Location Encounter Start Date Encounter Closed Date Diagnosis/Indication Diagnosis SNOMED-CT Code Diagnosis ICD10 Code Diagnosis Note [id number] Ronn Leal MD [facility] [address] [place] [address] 07/14/2024 10:55:21 07/14/2024 11:44:07 Secondary erectile dysfunction 778453890 N52.9 Male hypogonadism 957396 06 E29.1 Health Concerns Section Related Observation LastModified by Organization Detai ls LastModified Time None Recorded Concern Status LastModified by Organization Details LastModified Time None Recorded Advance Directives Directive None Recorded Payers Insurance Date Sequence Insurance Name Policy Number Policy Lin Covered Member ID Lin Member ID Guarantor Name 07/14/2024 2 [place] Nicanor Alvarado [id number] Nicanor Alvarado 07/14/2024 1 [employer] (MEDICARE REPLACEMENT/ ADVANTAGE - PPO) [id number] Nicanor Alvarado [id number] Nicanor Alvarado Notes Date Note Type Note Provider Name and Address Organization Details Recorded Time 07/14/2024 text/html seeing for ED on T replacement for about 20 year and previously on penile self injections with trimix not for a while but now in new relationship so wants to restart that. Ronn Leal MD [address] [place] [address],[address], [place], [address], [facility] 07/14/2024 13:03:43
--- OUTSIDE RECORDS SUMMARY | 2024-07-17 09:33 | XMS_ITS | Clinical Summary ---
Author Organization Pending sale to [facility] Address [address], [place] [address] Care Team Providers Care Canvas Cutter Machine Name Role Phone Briana Vazquez PA-C Primary Care Provider [phone] Source Comments You are receiving this document [...] for each transition of care or referral. [facility] All[facility] Active Allergy Reactions Criticality Noted Date Comments Naltrexone Other, see comments 02/26/2023 Pt told RN he did not like it so he stopped taking it. Valproic Acid Other, see comments High 02/26/2023 Excessive sedation Medications acetaminophen (TYLENOL) 500 MG tabletIndicati ons:Pain Take 2 Tablets (1,000 mg) by mouth three times a day. Maximum acetaminophen dose is 4000 mg in 24 hours Indications: Pain 90 Tablet 4 11:43 AM CDT 08/19/19 24 Active atorvastatin (LIPITOR) 10 MG tabletIndicati ons:Hyperlipid emia Take 2 Tablets (20 mg) by mouth every evening. Indications: High Amount of Fats in the Blood 28 Tablet 4 11:43 AM CDT 08/19/19 24 025 Active gabapentin (NEURONTIN) 400 MG capsuleIndicat ions:RLS / chronic pain Take 3 Capsules (1,200 mg) by mouth three times a day. Indications: RLS / chronic pain 136 Capsule 4 11:43 AM CDT 08/19/19 24 025 Active amLODIPine (NORVASC) 5 MG tabletIndicati ons:Hypertensi on Take 1 Tablet (5 mg) by mouth daily. Indications: High Blood Pressure Disorder 14 Tablet 4 11:43 AM CDT 08/19/19 24 025 Active aspirin 81 MG chewable tablet Chew and swallow 1 Tablet (81 mg) by mouth daily. 14 Tablet 4 11:43 AM CDT 08/19/19 24 Active folic acid 1 MG tablet Take 1 Tablet (1 mg) by mouth daily. 14 Tablet 4 11:43 AM T 08/19/19 24 Active lidocaine (ASPERCREAM) 4 % patchIndicatio ns:pain Apply 3 Patches to skin daily. Leave on for up to 12 hours in a 24 hour period, then remove. Indications: pain 42 Patch 4 11:43 AM CDT 08/20/19 24 Active metoprolol succinate (TOPROL XL) 50 MG 24 hour release tabletIndicati ons:Hypertensi on Take 1 Tablet (50 mg) by mouth daily. Indications: High Blood Pressure Disorder 14 Tablet 4 11:43 AM CDT 08/20/19 24 025 Active omeprazole (PRILOSEC) 20 MG capsuleIndicat ions:Gastroeso phageal Reflux Disease Take 1 Capsule (20 mg) by mouth daily. Indications: Gastroesophageal Reflux Disease 14 Capsule 4 11:43 AM CDT 08/19/19 24 Active QUEtiapine (SEROQUEL) 400 MG tabletIndicati ons:SCAD Take 2 Tablets (800 mg) by mouth daily at bedtime. Indications: SCAD 28 Tablet 4 11:43 AM CDT 08/19/19 24 Active amitriptyline (ELAVIL) 100 MG tabletIndicati ons:Depression Take 1 Tablet (100 mg) by mouth daily at bedtime. Indications: Depression 14 Tablet 4 11:43 AM CDT 08/19/19 24 025 Active mometasone (ELOCON) 0.1 % creamIndicatio ns:Dermatitis Apply topically one time daily. Indications: Skin Inflammation. 45 g 4 11:43 AM CDT 08/19/19 24 Active diclofenac (VOLTAREN) 1 % gel Apply 2 g topicallly to affected area on skin 4 times daily as needed for shoulder/neck pain. 50 g 4 11:43 AM CDT 08/19/19 24 Active diphenhydrAMIN E (BENADRYL) 50 MG capsuleIndicat ions:Insomnia Take 1 Capsule (50 mg) by mouth daily at bedtime. Indications: Trouble Sleeping 14 Capsule 4 11:43 AM CDT 08/19/19 24 Active OLANZapine (ZYPREXA) 10 MG tabletIndicati ons:psychosis Take 1 Tablet (10 mg) by mouth two times daily as needed for agitation, psychosis. Indications: psychosis 28 Tablet 4 11:43 AM CDT 08/19/19 24 Active tamsulosin (FLOMAX) 0.4 MG CAPS capsule Take 1 Capsule (0.4 mg) by mouth daily after a meal. 14 Capsule 4 11:43 AM CDT 08/20/19 24 025 Active thiamine 100 MG tablet Take 1 Tablet (100 mg) by mouth daily. 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 Alcohol use disorder 09/11/2015 Migraine headache 11/19/2009 Hypertension 02/27/2009 Hyperlipidemia with target LDL less than 130 Overview (11/14/2014): ICD 10 Genital herpes 02/27/2009 Generalized headaches 02/27/2009 Chronic low back pain 02/27/2009 GERD (gastroesophageal reflux disease) 9 Immunizations Immunization Administration Dates Next Due HepB Adult (Engerix-B, [...] = 0.6 oz pur e alcohol) Rare [facility] Utilities Answer Date Recorded In the past 12 months has e electric, gas, oil, or water company threatened to shut off services in your [...] place to sleep or slept in a fdc (including now)? 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 Not on file Not on file Last Filed Vital Signs Vital Sign Reading Time Taken Comments Blood Pressure 151/90 08/23/2023 11:00 AM CDT Pulse 84 08/23/2023 8:12 AM CDT Temperature 36.6 C (97.9 F) 08/23/2023 8:12 AM CDT Respiratory Rate 18 08/23/2023 8:12 AM CDT [...] Visit 1965 PSA Screening Discussion 1965 Pneumococcal Vaccine 50+ Yrs (1 of 2 - PCV) 1984 DTaP/Tdap/Td Vaccine (1 - Tdap) 05/03/2012 05/03/2012, 05/21/2003 HepB Vaccine (4) 12/10/2018 12/10/2017, , 01/31/2016 Diabetes Screening- (based on age and BMI) 06/21/2021 06/21/2018, 05/03/2017 COVID-19 Vaccine ( - 2023- season) 2023 11/27/2021, 07/17/2021, 02/05/2021, Additional history exists Influenza Vaccine (Season Ended) 2024 01/08/2006, 01/08/2005, 12/28/2002, Additional history exists Cholesterol 05/06/2028 05/07/2023, 06/06, 12/10/2017, Additional history exists HIV Screening (Preventive Services) Completed 05/27/2017, 09/17/2015, 12/07/2011, Additional history exists Hep C Screening (Preventive Services) Completed 05/27/2017, 08/12/2009 Zoster/Shingles Vaccine Completed 01/21/20, 11/15/2020, 05/09/2018, Additional history exists HepA Vaccine Aged Out No longer eligi ble based on patient's age to complete this topic Hib Vaccine Aged Out No longer eligi ble based on patient's age to complete this topic IPV (Polio) Vaccine Aged Out No longe r eligible based on patient's age to complete this topic MCV4 Vaccine Aged Out No longer eligi ble based on patient's age to complete this topic Meningococcal B Vaccine Aged Out No l onger eligible based on patient's age to complete this topic Procedures Procedure Name Priority Date/Time Associated Diagnosis Comments LIPID PANEL & DIRECT LDL (IF NEEDED) Add-On 05/07/2023 12:06 PM SUPERVISORY HISTORIAN HGB A1C Routine 06/21/2018 12:06 PM CDT [...] Direct LDL (if Needed) (05/07/2023 12:06 PM SUPERVISORY HISTORIAN) Cholesterol 91 0 - 199 mg/dL 05/07/2023 3:[address] [facility] Triglyceride 77 <=149 mg/dL 05/07/2023 3:44 PM [facility] HDL Cholesterol 31(L) >=40 mg/dL 4 3:44 PM [facility] LDL, Calculated 45 <130 mg/dL 4 3:44 PM [facility] Non HDL Chol, Calculated 60 <=159 mg/dL 05/07/2023 3:44 PM [facility] Cholesterol/HDL Ratio 2.9 <=5.0 05/07/2023 3:44 PM [facility] Blood Venipuncture / Unknown 05/07/2023 12:06 PM SUPERVISORY HISTORIAN 05/07/2023 12:13 PM SUPERVISORY HISTORIAN us Zaki Velásquez MD LAB_1 Final Resul t [address] [address], [facility] * Hgb A1C (06/21/2018 12:06 PM CDT) Hemoglobin A1C 5.0 <=5.6 % 06/21/2018 3:25 PM CDT [facility] Blood Venipuncture / Unknown 06/21/2018 12:06 PM CDT 06/21/2018 12:06 PM CDT us Coretta Hawkins APRN, JENNY LAB_1 Fi nal Result Performing Organization Address [facility]/ZIP Co de Phone Number [address] [address], [facility] [phone] * HIV 1/2 Ag/Ab 4th Generation (05/27/2017 2:42 PM CDT) HIV 1/2 AG/AB 4thGEN Negative (Non Reactive) [facility] Comment:HIV-1 p24 Ag and HIV -1/HIV-2 Ab not detected. 05/27/2017 2:42 PM CDT 05/27/2017 2:44 PM CDT Narrative [facility] - 05/27/2017 7:17 PM CDT Performed at [facility], [address] [place] [address] us Briana Vazquez PA-C LAB_1 Final Resul t Performing Organization Address [facility] de Phone Number [facility] [employer] [phone] * Hepatitis C Antibody, with Reflex (05/27/2017 2:42 PM CDT) Anti-HCV Negative (Non Reactive) [facility] Comment: Antibodies to HCV not detected. Does not exclude the possibility of exposure to HCV. 05/27/2017 2:42 PM CDT 05/27/2017 2:44 PM CDT Narrative [facility] - 05/27/2017 6:44 PM CDT Performed at [facility], [address] [place], [place] [id number] us Briana Vazquez PA-C LAB_1 Final Resul t Performing Organization Address City/[facility] Co de Phone Number [facility] [employer] [phone] from Last 3 Months or Most Recently Relevant to Health Maintenance Insurance [facility] HUMAN [facility] Advance Directives * Full Code (Latest Code [...] 5:39 PM 09/18/2015 2:12 PM Care Teams Canvas Cutter Machine Relationship Specialty Start Date End Date Briana Vazquez PAAshleyC [address] [place] [address] PCP - General Physician Operations Logistics Analyst 11/29/19
--- OUTSIDE RECORDS SUMMARY | 2024-07-17 09:33 | XMS_ITS | Encounter Summary ---
Author Organization [facility] Address [address] [place] [address] Care Team Providers Care Stevedoring Supervisor Name Role Phone Briana Vazquez PA-C Primary Care Provider [phone] Encounter Details Date Type Department Care Team (Late st Contact Info) Description 07/29/[address] 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 Page Luther CMA 07/29/2016, 11:33 AM documented in this encounter Plan of Treatment Not on file documented as of this encounter Visit Diagnoses Diagnosis Encounter for long-term (current) use of medications- Primary Encounter for long-term (current) use of other medications documented in this encounter Additional Health Concerns Infection Onset Date Last Indicated Resolved Time R/O COVID19 05/07/2023 05/07/2023 05/07/2023 10:3 4 AM WORKFORCE CONSULTANT documented as of this encounter Care Teams Stevedoring Supervisor Relationship Specialty Start Date End Date Briana Vazquez PA-C [address] [place] [address] PCP - General Physician Trimmer Tailer 11/29/19 documented as of this encounter
--- OUTSIDE RECORDS SUMMARY | 2024-07-17 09:33 | XMS_ITS | Encounter Summary ---
Author Organization [facility] Address [address] [place] [address] Care Team Providers Care Outside Sales Account Executive Name Role Phone Melissa Saxena MD Primary Care Provider [facility] Primary Care Provider Reason for Visit * Reason Onset Date Comments Refill Request 02/07/2014 tolterodine Encounter Details Date Type Department Care Team (Late st Contact Info) Description 02/07/2014 MyC Refill M [address] [address] Melissa Saxena MD Refill Request (tolterodine) Social History Tobacco Use Types Packs/Day Years Used Date Smoking Tobacco: Former Cigarettes Q uit: 12/31/1986 Smokeless Tobacco: Never Alcohol Use Standard Drinks/Week Comments Yes 0 (1 standard drink = 0.6 oz pur e alcohol) 1 case of beer a year Sex and Gender Information Value Date Recorded Sex Assigned at Not on file Legal Sex Male 3:42 AM LICENSED CLINICAL PSYCHOLOGIST Gender Identity Not on file Sexual Orientation Not on file documented as of this encounter Miscellaneous Notes * Telephone Encounter - Kristin Collier RN - 02/07/2014 10:05 AM LICENSED CLINICAL PSYCHOLOGIST MELISSA SAXENA MD please advise refill, you have not seen pt since 2011 for this med Last Office Visit: 06/17/13-AA Reason:lipid, hypertension, herpes simplex BP Readings from Last 2 Encounters: 12/06/13 146/90 09/17/13 137/92 Kristin Vogelgesang, RN, BSN Message handled by Nurse Triage. NSED CLINICAL PSYCHOLOGIST documented in this encounter Plan of Treatment Not on file documented as of this encounter Visit Diagnoses Diagnosis Bladder irritability Other specified disorders of bladder documented in this encounter Care Teams Outside Sales Account Executive Relationship Specialty Start Date End Date Melissa Saxena MD PCP - General 02/08/07 08/28/[address] [address] PCP - General 08/29/15 documented as of this encounter
--- OUTSIDE RECORDS SUMMARY | 2024-07-17 09:33 | XMS_ITS | Encounter Summary ---
Author Organization [facility] Address [address], [place] [address] Care Team Providers Care Bereavement Program Coordinator Name Role Phone Briana Vazquez PA-C Primary Care Provider [phone] Reason for Referral * Consult/Transfer Care (Routine) - Closed Specialty Diagnoses / Procedures Referred By Pinky osorio Referred To Contact Diagnoses Encounter for long-term (current) [place] [address] [place] [address] Phone: tel: fax: Referral ID Status Reason Start Date Expiration Date Visits Re quested Visits Authorized [id number] Closed 12/30/2016 01/30/2017 1 1 Scheduling Instructions Your provider has recommended you to follow up with your Primary Coal Cutting Machine Operator. If you are currently seeing a [facility] provider for your primary care needs, a tableau developer will contact you within the next 3 business days to assist you in setting up this appointment. To schedule your appointment you may call [phone]. We suggest you call your health insurance [...] You can schedule your appointment online at [employer] or by calling the appointment center at the phone number listed above. Thank you for choosing [facility]. 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
--- OUTSIDE RECORDS SUMMARY | 2024-07-17 09:34 | XMS_ITS | Continuity of Care Document ---
Author Organization [facility] Address [address] [facility] [place] [address] Care Team Providers Care C Unix Developer Name Role Phone JUVE GAIL Primary Care Provider Assessment No assessment recorded. Plan of Treatment Reminders Order Date Submit Date Provider Last Modified By Organization Details Last Modified Time Details Appointments None recorded. Lab None recorded. Referral None recorded. Procedures None recorded. Surgeries None recorded. Imaging None recorded. Medication Orders testosteron e cypionate 200 mg/mL intramuscul ar oil 2024 025 [email or web address] [id number], [address], [address], 13:11:11 testosteron e cypionate 200 mg/mL intramuscul ar oil 2024 025 URSULA [id number], [address], [address], 12:59:53 Patient TargetsNo targets recorded. Patient Instructions Encounter Date Encounter Id Patient Instructions Last Modified By Organization Details Last Modified Time 07/14/2024 [id number] will check lab results from [facility]. if those are OK, will send testo rx and also send rx for trimix to the compounding pharmacy [place] [address] Not available 07/14/2024 11:43:41 Reason for Referral None Reported. Problems Name Problem SNOMED Code Status Onset Date Resolution Date Notes Provider Name and Address Organization Details Recorded Time Male hypogonadism 72783496 Active 2024 Johnathan hoff [facility] 05/09/202 5 11:37:10 Secondary erectile dysfunction 663252189 Active 2024 Johnathan hoff, [facility] 5 11:37:10 Problem Notes None recorded. Medical Equipment None Reported. Allergies Allergen ID Allergen Name Allergen Category Reaction Reaction Severity Criticality Documentation Date Start Date Code Code System Note Provider Name and Address Organization Details Recorded Time 833160 naltrexon e medicatio n other Not available Not available 07/14/20242022 7243 RxNorm Pt told RN he did not like it so he stopp ed donald cornell it. Johnathan hoff, [facility] 5 11:02:18 Medications Name Sig Start Date [...] Available Not Available No t Available Hypodermic [place] 23 gauge x 1 Use to inject [...] Updated DateTime 07/14/2024 185.42 cm 31 kg/m2 913398.21 g [facility] 07/14/2024 11:02:06 Social History Question Answer Notes LastModified by Organizat ion Details LastModified Time Tobacco Smoking Status Former Smoker Johnathan hoff [facility] 07/14/2024 11:02:52 What Is Your Level [...] History Nothing Reported. Medical History Condition Response Diabetes N Sexually Transmitted Infection N Bleeding Disorder N Other N High Blood Pressure Y Kidney Stones N High Cholesterol N GERD/Acid Reflux Y Heart Disease N Cancer N Lung Disease N Depression N Past Encounters Encounter ID Performer Location Encounter Start Date Encounter Closed Date Diagnosis/Indication Diagnosis SNOMED-CT Code Diagnosis ICD10 Code Diagnosis Note [id number] Rnon Leal MD [facility] [address] [place] [address] 07/14/2024 10:55:21 07/14/2024 11:44:07 Secondary erectile dysfunction 306780474 N52.9 Male hypogonadism 495523 06 E29.1 Health Concerns Section Related Observation LastModified by Organization Detai ls LastModified Time None Recorded Concern Status LastModified by Organization Details LastModified Time None Recorded Payers Encounter Date Sequence Insurance Name Policy Number Policy Lin Covered Member ID Lin Member ID Guarantor Name 07/14/2024 2 [place] Nicanor E Jenny [id number] Nicanorchiquita Alvarado 07/14/2024 1 [employer] (MEDICARE REPLACEMENT/ ADVANTAGE - PPO) [id number] Nicanor Alvarado [id number] Nicanor Alvarado Notes Date Note Type Note Provider Name and Address Organization Details Recorded Time 07/14/2024 text/html seeing for ED on T replacement for about 20 year and previously on penile self injections with trimix not for a while but now in new relationship so wants to restart that. Ronn Leal MD [address] [place] [address],[address], [place], [address], [facility] 07/14/2024 13:03:43
--- OUTSIDE RECORDS SUMMARY | 2024-07-17 09:34 | XMS_ITS | Encounter Summary ---
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
[2024-07-17 09:47] LABS: PCR FLU A Negative PCR FLU A (Negative); PCR FLU B Negative PCR FLU B (Negative); PCR RSV Negative PCR RSV (Negative); SARS PCR* Negative SARS-CoV-2 (Negative)
[2024-07-17] MEDS: ALBUTEROL SULFATE 2.5 MG/3 ML VIAL.NEB NEB (09:56)
[2024-07-17 10:00] LABS: Basophils Percent Auto 0.2 % (0.0-3.0); Eosinophils Percent Auto 1.6 % (0.0-7.0); Hematocrit 52.6 % (37.0-53.0); Hemoglobin* 17.4 gm/dL (13.5-17.5); Lymphocytes Percent Auto 9.1 % (20-44); Mean Corpuscular HGB Conc 33 gm/dL (32-36); Mean Corpuscular Hemoglobin 28 pg (26-34); Mean Corpuscular Volume 85 fL (80-100); Monocytes Percent Auto 7.4 % (0.0-11.0); Neutrophils Percent Auto 78.7 % (42.0-72.0); Platelet Count* 208 K/uL (140-440); RDW Coefficient of Variation % 15.7 % (11.5-15.5); Red Blood Count 6.16 m/uL (4.30-5.90); White Blood Count* 12.15 K/uL (4.50-11.00)
[2024-07-17 10:01] LABS: Slide Review Reflex No
[2024-07-17 10:07] VITALS: PULSE 68; O2SAT 98
[2024-07-17 10:14] LABS: Chloride* 102 mmol/L (96-114); Sodium* 139 mmol/L (135-149)
[2024-07-17 10:15] LABS: Potassium* 3.5 mmol/L (3.6-5.1)
[2024-07-17 10:17] LABS: Blood Urea Nitrogen* 9 mg/dL (7-30); Estimated Glomerular Filt Rate 87 ml/min
[2024-07-17 10:18] LABS: Anion Gap 7 mEq/L (7-15); Calcium* 8.9 mg/dL (8.4-10.6); Carbon Dioxide* 30 mmol/L (20-32); Glucose* 104 mg/dL (60-115)
--- NOTE | 2024-07-17 10:21 | ED.GENADULT ---
HPI - General Adult General Date Seen: 07/17/24 Chief complaint: Cough Stated complaint: Raspy Lungs and sweats Time Seen by Provider: 07/17/24 08:51 Source: patient Mode of arrival: ambulatory Limitations: no limitations History of Present Illness HPI narrative: Patient is a 58-year-old male presenting to the emergency department for shortness of breath. He states since about 04:30 wound he has been having some raspy breathing and has been diaphoretic. He has been having a cough. Is having difficult time breathing when lying down so states he has been pacing a lot and then the base back down he will feel lightheaded. He states he still feels lightheaded at this time. He had the symptoms twice last year and both times she was diagnosed with pneumonia he states. He does occasionally vape but no history of asthma or COPD. Quit smoking cigarettes over 30 years ago. He has not had any objective fevers. Denies any associated chest pain. Denies abdominal pain, headache, weakness, numbness. Does feel fatigued. No history of heart disease. Does have a history of drug abuse. No history of blood clots, no recent surgeries, no history of cancer, denies hemoptysis. No recent travel. Has not noticed any lower extremity edema Related Data Home Medications ?Medication ?Instructions ?Recorded ?Confirmed trazodone 100 mg tablet 200 mg PO QHS 03/11/23 07/04/24 amlodipine 5 mg tablet 5 mg PO HS 09/24/23 07/04/24 methocarbamol 750 mg tablet 750 mg PO Q8H PRN 09/24/23 07/04/24 omeprazole 20 mg capsule,delayed 20 mg PO DAILY 09/24/23 07/04/24 release propranolol 20 mg tablet 20 mg PO BID 10/01/23 07/04/24 alprazolam 1 mg tablet 1 mg PO HS 11/09/23 07/04/24 atorvastatin 20 mg tablet 20 mg PO HS 11/09/23 07/04/24 diclofenac sodium 75 mg 75 mg PO BID PRN severe pain 11/09/23 07/04/24 tablet,delayed release gabapentin 400 mg capsule 1,200 mg PO TID 11/09/23 07/04/24 metoprolol succinate 100 mg 100 mg PO DAILY 11/09/23 07/04/24 capsule sprinkle, ext. release 24 hr olanzapine 20 mg tablet 20 mg PO HS 11/09/23 07/04/24 prazosin 2 mg capsule 2 mg PO HS 11/09/23 07/04/24 tamsulosin 0.4 mg capsule (Flomax) 0.4 mg PO DAILY 11/09/23 07/04/24 Previous Rx's ?Medication ?Instructions ?Recorded ropinirole 2 mg tablet 2 mg PO BID #180 tabs 03/22/23 quetiapine 400 mg tablet (Seroquel) 800 mg (2 x 400 mg) PO QHS #60 tabs 06/04/23 Allergies Allergy/AdvReac Type Severity Reaction Status Date / Time naltrexone AdvReac Unknown Verified 07/04/24 13:26 Review of Systems Status of ROS: Reports: 10 or more systems reviewed and unremarkable except as noted in History and below [facility] Medical History Warts (09/23/04) ?B07.9 - Viral wart, unspecified (ICD-10) Troponin level elevated (05/08/23) ?R79.89 - Other specified abnormal findings of blood chemistry (ICD-10) Trigger middle finger of right hand (09/25/15) ?M65.331 - Trigger finger, right middle finger (ICD-10) Syncope (05/07/23) ?R55 - Syncope and collapse (ICD-10) Sedative, hypnotic or anxiolytic use disorder, severe, dependence (07/20/23) ?F13.20 - Sedative, hypnotic or anxiolytic dependence, uncomplicated (ICD-10) Psychosis (09/17/15) ?F29 - Unspecified psychosis not due to a substance or known physiological condition (ICD-10) Polysubstance abuse (07/19/23) ?F19.10 - Other psychoactive substance abuse, uncomplicated (ICD-10) Neuropathy (09/30/15) ?G62.9 - Polyneuropathy, unspecified (ICD-10) Malaise (09/25/15) ?R53.81 - Other malaise (ICD-10) Ingestion of unknown drug (07/18/23) ?T50.901A - Poisoning by unspecified drugs, medicaments and biological substances, accidental (unintentional), initial encounter (ICD-10) Hyperlipidemia with target LDL less than 130 (02/27/09) ?E78.5 - Hyperlipidemia, unspecified (ICD-10) Headache (05/16/01) ?R51.9 - Headache, unspecified (ICD-10) Generalized headaches (02/27/09) ?R51.9 - Headache, unspecified (ICD-10) Encephalopathy (05/09/23) ?G93.40 - Encephalopathy, unspecified (ICD-10) Drug-induced mood disorder (09/25/15) ?F19.94 - Other psychoactive substance use, unspecified with psychoactive substance-induced mood disorder (ICD-10) Chronic pain syndrome (07/23/23) ?G89.4 - Chronic pain syndrome (ICD-10) Chronic low back pain (09/01/23) ?M54.50 - Low back pain, unspecified (ICD-10) ?G89.29 - Other chronic pain (ICD-10) Chronic left shoulder pain (09/01/23) ?M25.512 - Pain in left shoulder (ICD-10) ?G89.29 - Other chronic pain (ICD-10) Bipolar affective disorder (09/11/15) ?F31.9 - Bipolar disorder, unspecified (ICD-10) Benzodiazepine misuse (05/07/23) ?F13.90 - Sedative, hypnotic, or anxiolytic use, unspecified, uncomplicated (ICD-10) Anxiety disorder (09/11/15) ?F41.9 - Anxiety disorder, unspecified (ICD-10) Amphetamine use disorder, severe, dependence (09/25/15) ?F15.20 - Other stimulant dependence, uncomplicated (ICD-10) 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) ?F10.988 - Alcohol use, unspecified with other alcohol-induced disorder (ICD-10) Alcohol use disorder, severe, dependence (09/25/15) ?F10.20 - Alcohol dependence, uncomplicated (ICD-10) Cervical spondylosis with radiculopathy (09/06/19) ?M47.22 - Other spondylosis with radiculopathy, cervical region (ICD-10) USAMA (acute kidney injury) (05/08/23) ?N17.9 - Acute kidney failure, unspecified (ICD-10) Fracture of left wrist with malunion ?S62.102P - Fracture of unspecified carpal bone, left wrist, subsequent encounter for fracture with malunion (ICD-10) Marijuana abuse ?F12.10 - Cannabis abuse, uncomplicated (ICD-10) Primary hypertension ?I10 - Essential (primary) hypertension (ICD-10) Mixed hyperlipidemia ?E78.2 - Mixed hyperlipidemia (ICD-10) Rupture of right biceps tendon ?S46.211A - Strain of muscle, fascia and tendon of other parts of biceps, right arm, initial encounter (ICD-10) 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) ?F15.21 - Other stimulant dependence, in remission (ICD-10) Allergic rhinitis ?J30.9 - Allergic rhinitis, unspecified (ICD-10) Seborrheic dermatitis ?L21.9 - Seborrheic dermatitis, unspecified (ICD-10) Chronic pain of both shoulders ?M25.511 - Pain in right shoulder (ICD-10) ?M25.512 - Pain in left shoulder (ICD-10) ?G89.29 - Other chronic pain (ICD-10) BPH (benign prostatic hyperplasia) ?N40.0 - Benign prostatic hyperplasia without lower urinary tract symptoms (ICD-10) Spondylosis of cervical spine with radiculopathy (09/06/19) ?M47.22 - Other spondylosis with radiculopathy, cervical region (ICD-10) Restless legs syndrome ?G25.81 - Restless legs syndrome (ICD-10) Posttraumatic stress disorder ?F43.10 - Post-traumatic stress disorder, unspecified (ICD-10) Photokeratitis of both eyes (07/31/18) ?H16.133 - Photokeratitis, bilateral (ICD-10) Insomnia ?G47.00 - Insomnia, unspecified (ICD-10) Hypogonadism in male ?E29.1 - Testicular hypofunction (ICD-10) History of traumatic rupture of spleen ?Z87.828 - Personal history of other (healed) physical injury and trauma (ICD-10) History of psychoactive substance use disorder ?Z87.898 - Personal history of other specified conditions (ICD-10) History of migraine ?Z86.69 - Personal history of other diseases of the nervous system and sense organs (ICD-10) History of gastroesophageal reflux (GERD) ?Z87.19 - Personal history of other diseases of the digestive system (ICD-10) History of alcohol dependence ?F10.21 - Alcohol dependence, in remission (ICD-10) Genital herpes simplex ?A60.00 - Herpesviral infection of urogenital system, unspecified (ICD-10) Gastroesophageal reflux disease (05/16/01) ?K21.9 - Gastro-esophageal reflux disease without esophagitis (ICD-10) Erectile dysfunction ?N52.9 - Male erectile dysfunction, unspecified (ICD-10) 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 - Nightmare disorder (ICD-10) Surgical History H/O umbilical hernia repair (09/27/23) ?Z98.890 - Other specified postprocedural states (ICD-10) ?Z87.19 - Personal history of other diseases of the digestive system (ICD-10) History of arthroscopy of right shoulder (01/13/23) ?Z98.890 - Other specified postprocedural states (ICD-10) S/P arthroscopy of right shoulder (02/11/22) ?Z98.890 - Other specified postprocedural states (ICD-10) History of spinal surgery (1999) ?Z98.890 - Other specified postprocedural states (ICD-10) Status post right rotator cuff repair ?Z98.890 - Other specified postprocedural states (ICD-10) History of surgery on arm ?Z98.890 - Other specified postprocedural states (ICD-10) H/O left wrist surgery ?Z98.890 - Other specified postprocedural states (ICD-10) History of fusion of lumbar spine ?Z98.1 - Arthrodesis status (ICD-10) History of cervical spinal arthrodesis (2019) ?Z98.1 - Arthrodesis status (ICD-10) History of bunionectomy of right great toe (10/27/04) ?Z98.890 - Other specified postprocedural states (ICD-10) Social History Narrative: Lives with mother (Kathy Alvarado - medical decision maker if needed). Single, 2 kids, one son committed suicide, non-smoker, ETOH overuse (24 beers in one sitting most days of the week). Requesting Full Code status. What is your current living situation?: I presently have a place to live Problems where you live: no known problems Problems where you live details: no known problems In the past 12 months, utilities in danger of being shut off: no In past 12 months, lack of transportation kept you from medical appts, meetings, work, or getting things needed for daily living: no In the past 12 mos, have been you worried that your food would run out before you had money to buy more?: never true In the past 12 mos, the food you bought just didn't last and you didn't have money to buy more?: never true Highest level of school completed/degree received: high school graduate Smoking Status: Current every day smoker Do you use any of these nicotine containing products: Vaping Products Second hand tobacco smoke exposure: No Non-prescribed substance use: former substance user and crack/cocaine Non-prescribed substance use details: pt denied use, pt states he is in treatment here in [facility]. Has interlock system on vehicle. Pt has history of ETOH and drug (amphetamine/methamphetamine) use. History of PTSD, Paranoia. Caffeine: Yes How often does anyone, including family, friends and others, physically hurt you: never How often does anyone, including family, friends and others, insult or talk down to you: never How often does anyone, including family, friends and others, threaten you with harm: never How often does anyone, including family, friends and others, scream or curse at you: never service: No Exam Narrative: Exam Narrative: Const: Well-nourished, Well-developed, in mild distress Eyes: PERRL, no conjunctival injection, and symmetrical lids HENT: Atraumatic external nose and ears. Moist mucous membranes. Neck: Symmetric, trachea midline, No thyromegaly. CVS: RRR, No murmurs or gallops. Peripheral pulses 2+ and equal in all extremities RESP: Unlabored respiratory effort. Diffuse wheezing heard GI: Nontender/Nondistended, No rebound or guarding. MSK:Extremities w/o deformity, Normal Active ROM Skin: Warm, Dry. No rashes or lesions. Neuro: Normal Muscle tone, No focal neurological deficits. Psych: Awake, Alert, & Oriented x3. Appropriate mood and affect. Const: Vital Signs, click to edit/add: Vital Signs - 24 hr 07/17/24 08:57 07/17/24 10:07 Temperature 97.2 F L Pulse Rate 68 Pulse Rate [Pulse Oximeter] 72 Respiratory Rate 20 Blood Pressure [Ri ght Upper Arm] 183/106 H Pulse Oximetry 96 98 Oxygen Delivery Me thod Room Air Course Vital Signs Vital signs: Initial Vital Signs Temperature 97.2 F L 07/17/24 08:57 Temperature Source Temporal Artery Scan 07/17/24 08:57 Pulse Rate 72 07/17/24 08:57 Respiratory Rate 20 07/17/24 08:57 Blood Pressure 183/106 H 07/17/24 08:57 Blood Pressure Mean 131 H 07/17/24 08:57 Pulse Oximetry 96 07/17/24 08:57 Oxygen Delivery Method Room Air 07/17/24 08:57 Vital Signs Temperature 97.2 F L 07/17/24 08:57 Pulse Rate 72 07/17/24 08:57 Respiratory Rate 20 07/17/24 08:57 Blood Pressure 183/106 H 07/17/24 08:57 Pulse Oximetry 96 07/17/24 08:57 Oxygen Delivery Method Room Air 07/17/24 08:57 Temperature 97.2 F L 07/17/24 08:57 Pulse Rate 68 07/17/24 10:07 Respiratory Rate 20 07/17/24 08:57 Blood Pressure 183/106 H 07/17/24 08:57 Pulse Oximetry 98 07/17/24 10:07 Oxygen Delivery Method Room Air 07/17/24 08:57 Medications Administered Medications: Discontinued Medications Generic Name Dose Route Start Last Admin Trade Name Freq PRN Reason Stop Dose Admin Albuterol 2.5 mg 07/17/24 09:19 07/17/24 09:56 Albuterol Sulfate 2.5 Mg/3 Ml Vial.Neb NEB 07/17/24 09:20 2.5 mg ONCE ONE Administration Medical Decision Making [facility] Narrative Medical decision making narrative: Patient is a 58-year-old male presenting for shortness of breath. The differential diagnosis of shortness of breath is broad and includes common etiologies such as COPD, asthma, pneumonia, viral syndrome, etc. More serious etiologies considered include PE, CHF, coronary artery disease, pneumothorax, aortic dissection, aortic aneurysm. He appears overall nontoxic, concern for dissection and aortic aneurysm is low. I have a concern for PE as his symptoms seem to be more infectious. Will do an EKG and troponin doubt to the for signs of myocarditis or ACS. Chest x-ray ordered for signs of pneumonia or pneumothorax. Also ordered a CBC, BMP, viral swabs. Lab work returned showing no acute concerning abnormalities. White blood cell count is very mildly elevated at 12.15 EKG reviewed by myself shows no concerning findings. Chest x-ray reviewed myself the radiologist shows possible viral or atypical pneumonia. His lung sounds are clear after the albuterol treatment but he states it made him feel lightheaded. He was not wanting prescription for it. Troponin shows no concerning findings. Considering he is not having any chest pain and we have a known diagnosis of pneumonia I do not believe it is necessary to repeat the troponin. Patient will be discharged home with azithromycin via instymeds. Lab Data Labs: Lab Results 07/17/24 07/17/24 Range/Units 09:05 09:40 WBC 12.15 H (4.50-11.00) K/uL RBC 6.16 H (4.30-5.90) m/uL Hgb 17.4 (13.5-17.5) gm/dL Hct 52.6 (37.0-53.0) % MCV 85 (80-100) fL MCH 28 (26-34) pg MCHC 33 (32-36) gm/dL RDW Coeff of Negro 15.7 H (11.5-15.5) % Plt Count 208 (140-440) K/uL Neut % (Auto) 78.7 H (42.0-72.0) % Lymph % (Auto) 9.1 L (20-44) % [place] % (Auto) 7.4 (0.0-11.0) % Eos % (Auto) 1.6 (0.0-7.0) % Baso % (Auto) 0.2 (0.0-3.0) % Neut # (Auto) 9.60 H (1.7-7.0) K/uL Lymph # (Auto) 1.10 (0.90-2.90) K/uL [place] # (Auto) 0.90 (0.00-0.90) K/UL Eos # (Auto) 0.20 (0.00-0.50) K/uL Baso # (Auto) 0.00 (0.00-0.30) K/uL Abs Immat Gran (auto) 0.40 H (0.00-0.30) K/uL Imm/Tot Granulo (auto) 3.0 % Sodium 139 (135-149) mmol/L Potassium 3.5 L (3.6-5.1) mmol/L Chloride 102 (96-114) mmol/L Carbon Dioxide 30 (20-32) mmol/L Anion Gap 7 (7-15) mEq/L BUN 9 (7-30) mg/dL Creatinine 1.0 (0.5-1.5) mg/dL Estimated Creat Clear 91.00 Estimated GFR 87 ml/min Glucose 104 (60-115) mg/dL Calcium 8.9 (8.4-10.6) mg/dL Troponin I < 0.01 (0.01-0.04) ng/mL SARS-CoV-2 (PCR) Negative SARS-CoV-2 (Negative) Influenza Type A (PCR) Negative PCR FLU A (Negative) Influenza Type B (PCR) Negative PCR FLU B (Negative) RSV (PCR) Negative PCR RSV (Negative) Imaging Data Chest x-ray: Attestation: I have reviewed the pertinent imaging results. Radiologist's impression: Mild fine interstitial opacities usually seen with viral or atypical infections. Dictated by Kyleigh Hancock MD @ 07/17/2024 9:38:02 AM ECG Data Attestation: I personally reviewed and interpreted this ECG as follows: Prior ECG tracings: available for review Interpretation: Normal sinus rhythm the rate 67 beats per minute, normal intervals, normal axis, no ST or T-wave abnormalities. Appears similar previous EKG on file Discharge Plan Discharge Clinical Impression: Pneumonia Patient Disposition: Home, Self-Care Condition: Stable Instructions: Pneumonia (ED) Additional Instructions: Your chest x-ray appears to show an atypical pneumonia. This could be viral or an atypical bacteria. I will start him on a Z-Gwyn to cover for any potential bacterial infections. Follow-up with your primary care provider. Return to emergency department for new or worsening symptoms. Prescriptions: No Action propranolol 20 mg tablet 20 mg PO BID trazodone 100 mg tablet 200 mg PO QHS amlodipine 5 mg tablet 5 mg PO HS methocarbamol 750 mg tablet 750 mg PO Q8H PRN omeprazole 20 mg capsule,delayed release(DR/EC) 20 mg PO DAILY alprazolam 1 mg tablet 1 mg PO HS gabapentin 400 mg capsule 1,200 mg PO TID diclofenac sodium 75 mg tablet,delayed release (DR/EC) 75 mg PO BID PRN (Reason: severe pain) olanzapine 20 mg tablet 20 mg PO HS atorvastatin 20 mg tablet 20 mg PO HS tamsulosin [Flomax] 0.4 mg capsule 0.4 mg PO DAILY prazosin 2 mg capsule 2 mg PO HS metoprolol succinate 100 mg capsule,sprinkle,ER 24hr 100 mg PO DAILY ropinirole 2 mg tablet 2 mg PO BID Qty: 180 2RF quetiapine [Seroquel] 400 mg tablet 800 mg PO QHS Qty: 60 1RF Follow Up/Referrals: Brian Martínez MD [Primary Care Provider] - Stand Alone Forms: [facility] Info Instructions
[2024-07-17 10:32] LABS: Troponin I* < 0.01 ng/mL (0.01-0.04)
== END 2024-07-17 10:51 | disposition home or self-care (01) ==
PROVIDERS: Emergency Provider Student in an Organized Health Care Education/Training Program; PCP Family Medicine
DX: J18.9 Pneumonia, unspecified organism (principal); R06.02 Shortness of breath; R42 Dizziness and giddiness; F17.290 Nicotine dependence, other tobacco product, uncomplicated
CPT/HCPCS: 36415; 71046; 80048; 84484; 85025; 87631; 93005; 94640; 99284; 99285

== ENCOUNTER 2024-12-08 19:34 | Emergency (ER) | payer OTHER, MEDICAID, SELFPAY ==
--- OUTSIDE RECORDS SUMMARY | 2012-04-12 11:16 | XMS_ITS | Continuity of Care Document ---
Author Organization [facility] Address [address] [address] [place] [address] Phone Care Team Providers Care Automated Weaver Name Role Phone Unavailable Unavailable Unavailable Advance Directives Directive Yes / No Effective Date File Name No Information Encounters Encounter Description Practice Location Reason(s) For Visit Diagnoses Date Provider Providers Copied on Encounter [facility], [address] [address], [place], [place], [id number], [place] tel:[phone] [facility] No Information 3 No Information Referring Provider: Yaneth Bloode, [address] [place], [address]. tel:[phone] Family History Family Member Type Diagnosis Age At Onset No Information Payers Payer name Insurance type Covered constitution party ID Authoriza tion(s) No Information Social History Type Description Quantity Date Captured Comments Sex Male Smoking Status No Information Chief Complaint And Reason For Visit No Information Reason For Referral Reason For Referral No Information History Of Present Illness Encounter Date Complaint History Of Prese nt Illness No Information Functional Status Date Functional Assessmen t No Information Instructions Date Instruction Additional Infor mation No Information Assessments Type Assessment Date No Information Patient Care Teams Name Effective Dates (start - stop) Status Members No Information
--- OUTSIDE RECORDS SUMMARY | 2012-04-12 11:16 | XMS_ITS | Continuity of Care Document ---
Author Organization [facility] Address [address] [address] [place] [address] Phone Care Team Providers Care Appointment Setter Name Role Phone Unavailable Unavailable Unavailable Advance Directives Directive Yes / No Effective Date File Name No Information Encounters Encounter Description Practice Location Reason(s) For Visit Diagnoses Date Provider Providers Copied on Encounter [facility], [address] [address], [place], [place], [id number], [place] tel:[phone] [facility] No Information 3 No Information Referring Provider: Yaneth Bloode, [address] [place], [address]. tel:[phone] Family History Family Member Type Diagnosis Age At Onset No Information Payers Payer name Insurance type Covered republican ID Authoriza tion(s) No Information Social History [...]
--- OUTSIDE RECORDS SUMMARY | 2024-12-08 19:36 | XMS_ITS | Encounter Summary ---
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
--- OUTSIDE RECORDS SUMMARY | 2024-12-08 19:36 | XMS_ITS | Encounter Summary ---
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
--- OUTSIDE RECORDS SUMMARY | 2024-12-08 19:36 | XMS_ITS | Encounter Summary ---
Author Organization [facility] Address [address], [place] [address] Care Team Providers Care Mail Rider Name Role Phone Briana Vazquez PA-C Primary Care Provider [phone] Reason for Referral * Consult/Transfer Care (Routine) - Closed Specialty Diagnoses / Procedures Referred By Pinky osorio Referred To Contact Diagnoses Encounter for long-term (current) [place] [address] [place] [address] Phone: tel: fax: Referral ID Status Reason Start Date Expiration Date Visits Re quested Visits Authorized [id number] Closed 12/30/2016 01/30/2017 1 1 Scheduling Instructions Your provider has recommended you to follow up with your Primary Leasing Property Manager. If you are currently seeing a [facility] provider for your primary care needs, a hand assembler will contact you within the next 3 business days to assist you in setting up this appointment. To schedule your appointment you may call [phone]. We suggest you call your health insurance [...] You can schedule your appointment online at [email or web address] or by calling the appointment center at the phone number listed above. Thank you for choosing [facility]. Tanna Yen RN [facility] Refill Center Nurses Encounter Details Date Type Department Care Team (Late st Contact Info) Description 12/29/[address] 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
--- OUTSIDE RECORDS SUMMARY | 2024-12-08 19:36 | XMS_ITS | Clinical Summary ---
Author Organization [facility] Address [address], [place] [address] Care Team Providers Care Telephone Sales Agent Name Role Phone Birana Vazquez PA-C Primary Care Provider [phone] Source Comments You are receiving this document [...] each transition of care or referral. [facility] Allergies Active Allergy Reactions Criticality Noted Date [...] 4 11:43 AM CDT 08/19/19 24 Active gabapentin (NEURONTIN) 400 MG capsuleIndicat ions:RLS / chronic pain Take 3 Capsules (1,200 mg) by mouth three times a day. Indications: RLS / chronic pain 136 Capsule 4 11:43 AM CDT 08/19/19 24 Active amLODIPine (NORVASC) 5 MG tabletIndicati ons:Hypertensi on Take 1 Tablet (5 mg) by mouth daily. Indications: High Blood Pressure Disorder 14 Tablet 4 11:43 AM CDT 08/19/19 24 Active aspirin 81 MG chewable tablet Chew and swallow 1 Tablet (81 mg) by mouth daily. 14 Tablet 4 11:43 AM CDT 08/19/19 24 Active folic acid 1 MG tablet Take 1 Tablet (1 mg) by mouth daily. 14 Tablet 4 11:43 AM CDT 08/19/19 24 Active lidocaine (ASPERCREAM) 4 % [...] 4 11:43 AM CDT 08/20/19 24 Active omeprazole (PRILOSEC) 20 MG capsuleIndicat ions:Gastroeso [...] 4 11:43 AM CDT 08/19/19 24 Active mometasone (ELOCON) 0.1 % creamIndicatio ns:Dermatitis [...] Capsule 4 11:43 AM CDT 08/20/19 24 Active thiamine 100 MG tablet Take 1 [...] Overview (05/28/2017): [facility]iat[facility] [...] = 0.6 oz pur e alcohol) Rare [facility] Utilities Answer Date Recorded In the past 12 months has e [employer], gas, oil, or water [employer] threatened to shut off services in your [...] place to sleep or slept in a penitentiary (including now)? 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 Not on file Not [...] HepB Vaccine (4) 12/10/2018 12/10/2017, , 01/31/2016 COVID-19 Vaccine (6 - season) 2024 11/27/2021, 07/17/2021, 02/05/2021, Additional history exists Influenza Vaccine (#1) 2024 6, 01/08/2005, 12/28/2002, Additional history exists Cholesterol 05/06/2028 [...] LDL (IF NEEDED) Add-On 05/07/2023 12:06 PM SOCIAL MEDIA SPECIALIST HIV 1/2 AG/AB 4TH GEN Routine 05/27/2017 2:42 PM CDT Screening for viral disease HEPATITIS C ANTIBODY, WITH REFLEX (ANTI-HCV) Routine 05/27/2017 2:42 PM CDT Screening for viral disease from Last 3 Months or Most Recently Relevant to Health Maintenance Results * (ABNORMAL) Lipid Panel & Direct LDL (if Needed) (05/07/2023 12:06 PM SOCIAL MEDIA SPECIALIST) Pathologist [facility] Cholesterol 91 0 - 199 mg/dL 05/07/2023 3:[address] [facility] Triglyceride 77 <=149 mg/dL 05/07/2023 3:44 PM [facility] HDL Cholesterol 31(L) >=40 mg/dL 3:44 PM [facility] LDL, Calculated 45 <130 mg/dL 3:44 PM [facility] Non HDL Chol, Calculated 60 <=159 mg/dL 05/07/2023 3:44 PM [facility] Cholesterol/HDL Ratio 2.9 <=5.0 05/07/2023 3:44 PM [facility] Blood Venipuncture / Unknown 05/07/2023 12:06 PM SOCIAL MEDIA SPECIALIST 05/07/2023 12:13 PM SOCIAL MEDIA SPECIALIST us Zaki Velásquez MD LAB_1 Final Resul t Performing Organization Address City/State/[facility] [place] [address], [facility] * HIV 1/2 Ag/Ab 4th Generation (05/27/2017 2:42 PM CDT) HIV 1/2 AG/AB 4thGEN Negative (Non Reactive) [facility]GNR [facility] Comment:HIV-1 p24 Ag and HIV -1/HIV-2 Ab not detected. 05/27/2017 2:42 PM CDT 05/27/2017 2:44 PM CDT Narrative [facility] - 05/27/2017 7:17 PM CDT Performed at [facility], [address] [place] [address] us Briana Vazquez PA-C LAB_1 Final Resul t Performing Organization Address City/[facility] Co de Phone Number [employer] [phone] * Hepatitis C Antibody, with Reflex (05/27/2017 2:42 PM CDT) Anti-HCV Negative (Non Reactive) [facility]GNR [facility] Comment: Antibodies to HCV not detected. Does not exclude the possibility of exposure to HCV. 05/27/2017 2:42 PM CDT 05/27/2017 2:44 PM CDT Narrative [facility] - 05/27/2017 6:44 PM CDT Performed at [facility], [address] [place] [address] us Briana Vazquez PA-C LAB_1 Final Resul t Performing Organization Address [facility] Co de Phone Number [facility] [phone] from Last 3 Months or Most Recently Relevant to Health Maintenance [place] [address] [place] [address] [employer] MEDICARE REPLACEMENT [facility] ADULT DENTAL Advance Directives * Full Code [...] 5:39 PM 09/18/2015 2:12 PM Care Teams Telephone Sales Agent Relationship Specialty Start Date End Date George, Briana M, PA-C [address] [place], [place] [id number] PCP - General Physician Flag Decorator 11/29/19
--- OUTSIDE RECORDS SUMMARY | 2024-12-08 19:36 | XMS_ITS | Encounter Summary ---
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
--- OUTSIDE RECORDS SUMMARY | 2024-12-08 19:37 | XMS_ITS | Data Portability ---
Author Organization [facility] [place] [facility], [facility] Address [address] [place] [address] Care Team Providers Care Prime Minister Name Role Phone GAIL AN Primary Care Provider Assessment No assessment recorded. Plan of Treatment Reminders Order Date Submit Date Provider Last Modified By Organization Details Last Modified Time Details Appointments None recorded. Lab None recorded. Referral None recorded. Procedures None recorded. Surgeries None recorded. Imaging None recorded. Medication Orders testosteron e cypionate 200 mg/mL intramuscul ar oil 2024 025 [email or web address] [id number], [address], [address], 13:11:11 testosteron e cypionate 200 mg/mL intramuscul ar oil 2024 025 [id number] [id number], [address], [address], 12:59:53 Patient TargetsNo targets recorded. Patient Instructions Encounter Date Encounter Id Patient Instructions Last Modified By Organization Details Last Modified Time 07/14/2024 [id number] will check lab results from [facility]. if those are OK, will send testo rx and also send rx for trimix to the compounding pharmacy [place] [address] Not available 07/14/2024 11:43:41 Reason for Referral None Reported. Problems Name Problem SNOMED Code Status Onset Date Resolution Date Notes Provider Name and Address Organization Details Recorded Time Male hypogonadism 29059174 Active 2024 Johnathan hoff [facility] 5 11:37:10 Secondary erectile dysfunction 668965178 Active 2024 Johnathan hoff [facility] 5 11:37:10 Problem Notes None recorded. Medical Equipment None Reported. Allergies Allergen ID Allergen Name Allergen Category Reaction Reaction Severity Criticality Documentation Date Start Date Code Code System Note Provider Name and Address Organization Details Recorded Time 496455 naltrexon e medicatio n other Not available Not available 07/14/20242022 7243 RxNorm Pt told RN he did not like it so he stopp ed donald cornell it. Johnathan hoff, [facility] 5 11:02:18 Medications Name Sig Start Date Stop Date Status Note LastModified by Organization Details LastModified Time Prescription - Prior Authorizatio n Request active Not Available Not Available No t Available Trimix 30 papaverine/1 phentolamine /10 PGE-1 inject 0.2-0.4mL intracavern osal as directed PRN for sexual activity 2024 active Not Available Not Available Not Avai lable cyclobenzapr ine 10 mg tablet TAKE ONE [...] Available Not Available alprazolam 1 mg tablet TAKE ONE TABLET BY MOUTH DAILY NEEDED FOR EXTREME ANXIETY* active Not Available Not Available No t [...] Available Not Available No t Available Hypodermic [place] 23 gauge x 1 Use to inject [...] Available Not Available ropinirole 2 mg tablet TAKE ONE TABLET BY MOUTH [...] weeks by intramuscul ar route for 30 days.* active Not Available Not Available No t Available levofloxacin 750 mg tablet Take 1 Tablet [...] No t Available olanzapine 20 mg tablet TAKE ONE TABLET BY MOUTH ONE TIME DAILY* active Not Available Not Available Not Available prazosin 2 mg capsule TAKE ONE CAPSULE BY MOUTH AT BEDTIME* active Not Available Not Available No t Available amoxicillin 875 mg-potassium clavulanate 125 mg tablet TAKE ONE TABLET BY MOUTH TWICE DAILY* active Not Available Not Available No t Available quetiapine 400 mg tablet TAKE TWO TABLETS BY MOUTH DAILY AT BEDTIME* active Not Available Not Available Not Available Vitals Date Recorded Body height Body mass index (BMI) Body weight Provider Name and Address Organization Details Last Updated DateTime 07/14/2024 185.42 cm 31 kg/m2 092575.21 g Johnathan Garcia [facility] 07/14/2024 11:02:06 Social History Question Answer Notes LastModified by Organizat ion Details LastModified Time Tobacco Smoking Status Former Smoker Johnathan hoff [facility] 07/14/2024 11:02:52 What Is Your Level Of [...] Response Diabetes N Sexually Transmitted Infection N Other N Bleeding Disorder N High Blood Pressure Y Kidney Stones N Cancer N Lung Disease N Depression N High Cholesterol N GERD/Acid Reflux Y Heart Disease N Past Encounters Encounter ID Performer Location Encounter Start Date Encounter Closed Date Diagnosis/Indication Diagnosis SNOMED-CT Code Diagnosis ICD10 Code Diagnosis IMO Codes Diagnosis Note [id number] Ronn Leal MD [facility] [address] [place] [address] 07/14/2024 10:55:21 07/17/2024 12:10:00 Secondary erectile dysfunction 017258681 N52.9 196365 Male hypogonadism 287306 06 E29.1 90050845 Health Concerns Section Related Observation LastModified by Organization Detai ls LastModified Time None Recorded Concern Status LastModified by Organization Details LastModified Time None Recorded Advance Directives Directive None Recorded Payers Insurance Date Sequence Insurance Name Policy Number Policy Lin Covered Member ID Lin Member ID Guarantor Name 07/14/2024 2 [place] Nicanor Alvarado [id number] Nicanor Alvarado 07/17/2024 1 [employer] (MEDICARE REPLACEMENT/ ADVANTAGE - PPO) [id number] Nicanor Alvarado [id number] Nicanor Alvarado Notes Date Note Type Note Provider Name and Address Organization Details Recorded Time 07/14/2024 text/html seeing for ED on T replacement for about 20 year and previously on penile self injections with trimix not for a while but now in new relationship so wants to restart that. Ronn Leal MD [address] [facility],[address], [place], [address], [facility] 07/14/2024 13:03:43
--- OUTSIDE RECORDS SUMMARY | 2024-12-08 19:37 | XMS_ITS | Encounter Summary ---
Author Organization [facility] Address [address] [place] [address] Care Team Providers Care Software Educator Name Role Phone Melissa Saxena MD Primary Care Provider [facility] Primary Care Provider Reason for Visit * Reason Onset Date Comments Refill Request 02/07/2014 tolterodine Encounter Details Date Type Department Care Team (Late st Contact Info) Description 02/07/2014 MyC Refill M [address] [address] Melissa Saxena MD Refill Request [...] on file Legal Sex Male 3:42 AM FEED GRINDER Gender Identity Not on file Sexual Orientation Not on file documented as of this encounter Miscellaneous Notes * Telephone Encounter - Kristin Collier RN - 02/07/2014 10:05 AM FEED GRINDER MELISSA SAXENA MD please advise refill, you have not seen pt since 2011 for this med Last Office Visit: 06/17/13-AA Reason:lipid, hypertension, herpes simplex BP Readings from Last 2 Encounters: 12/06/13 146/90 09/17/13 137/92 Kristin Vogelgesang, RN, BSN Message handled by Nurse Triage. GRINDER documented in this encounter Plan of Treatment Not on file documented as of this encounter Visit Diagnoses Diagnosis Bladder irritability Other specified disorders of bladder documented in this encounter Care Teams Software Educator Relationship Specialty Start Date End Date Melissa Saxena MD PCP - General 02/08/07 08/28/[address] [address] PCP - General 08/29/15 documented as of this encounter
--- OUTSIDE RECORDS SUMMARY | 2024-12-08 19:37 | XMS_ITS | Encounter Summary ---
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
--- OUTSIDE RECORDS SUMMARY | 2024-12-08 19:37 | XMS_ITS | Clinical Summary ---
Author Organization [facility] Address [address] [place] [address] Care Team Providers Care Field Assembly Supervisor Name Role Phone [facility] Primary Care Provider Allergies Active Allergy Reactions Criticality Noted Date Comments No Known Drug Allergy 12/31/2008 Medications tolterodine (DETROL) 2 MG tablet Take 4 mg by mouth daily Active buPROPion (WELLBUTRIN XL) 150 MG 24 hr tablet Take 150 mg by mouth daily with bupropion XL 300mg tablet for fnmef=008pl. Active buPROPion (WELLBUTRIN XL) 300 MG 24 hr tablet Take 300 mg by mouth daily with bupropion XL 150mg for a dyesp=500pl. Active tamsulosin (FLOMAX) 0.4 MG capsule Take [...] Noted Date Diagnosed Date Resolved Date [facility] 09/22/2013 08/23/2023 Overview (09/22/2013): Status: Unable to reach (no active care coordination) Pit Shoveler: Cass George RN [phone] See Letters for [facility] Emergency Care Plan Immunizations Immunization Administration [...] on file Legal Sex Male 3:42 AM GEOCHEMIST Gender Identity Not on file Sexual Orientation Not on file Last Filed Vital Signs Vital Sign Reading Time Taken Comments Blood Pressure 149/91 05/02/2018 3:40 PM GEOCHEMIST Pulse 82 04/29/2018 8:00 PM GEOCHEMIST Temperature 35.8 C (96.5 F) 05/02/2018 3:40 PM GEOCHEMIST Respiratory Rate 20 05/02/2018 3:40 PM GEOCHEMIST Oxygen Saturation 94% 05/02/2018 3:40 PM GEOCHEMIST Inhaled Oxygen Concentration - - Weight 96.7 kg (213 lb 1.6 oz) 05/02/2018 5:39 A M GEOCHEMIST Height 185.4 cm (6' 1) 04/24/2018 1:00 PM GEOCHEMIST Body Mass Index 28.12 04/24/2018 1:00 PM GEOCHEMIST Plan of Treatment Not on file Insurance [employer] Advance Directives For more information, please contact: [phone] * Full Code (Latest Code Status on [...] 5:53 PM 09/15/2013 1:11 PM Care Teams Field Assembly Supervisor Relationship Specialty Start Date End Date [facility] [address] [place] [address] PCP - General 08/29/15
--- OUTSIDE RECORDS SUMMARY | 2024-12-08 19:37 | XMS_ITS | Clinical Summary ---
Author Organization [facility] Address [address] [place] [address] Care Team Providers Care Pensions Retirement Plan Specialist Name Role Phone Brian Martínez MD Primary Care Provider [phone] Allergies No known active allergies Medications rOPINIRole (REQUIP) 2 mg tabletIndications :Tremor Take 1 Tablet (2 mg) by mouth two times daily. 90 Tablet 1 08/30/19 24 Active desonide (TRIDESILON) 0.05 % cream Apply topically to affected area(s) two times daily. 11/17/19 23 Active ALPRAZolam (XANAX) 1 mg tablet Take 1 mg by mouth at bedtime if needed (sleep). 09/13/19 24 Active traZODone (DESYREL) 100 mg tabletIndications :Schizophrenia, unspecified type (HC) TAKE TWO TABLET BY MOUTH DAILY AT BEDTIME 180 Tablet 1 09/28/19 24 Active Needle, Disp, 23 G (Easy Touch Hypodermic Needle) 23 gauge x 1 ndleIndications:H ypotestosteronemi a Use to inject testosterone intramuscularly every 2 weeks. 50 Each 3 01/28/20 24 Active prazosin (MINIPRESS) 2 mg capsuleIndication s:Drug-induced mood disorder (HC) TAKE ONE CAPSULE BY MOUTH ONE TIME DAILY AT BEDTIME 30 Capsule 02/03/20 24 Active QUEtiapine (SEROQUEL) 400 mg tabletIndications :Drug-induced mood disorder (HC),Insomnia, idiopathic TAKE TWO TABLETS BY MOUTH DAILY AT BEDTIME 180 Tablet 02/27/20 24 Active OLANzapine (ZYPREXA) 20 mg tabletIndications :Insomnia, idiopathic TAKE ONE TABLET BY MOUTH ONE TIME DAILY AT BEDTIME 90 Tablet 02/27/20 24 Active methocarbamoL 750 mg tabletIndications :Chronic low back pain, unspecified back pain laterality, unspecified whether sciatica present Take 1 Tablet (750 mg) by mouth three times daily. 270 Tablet 06/16/19 25 Active gabapentin 400 mg capsuleIndication s:Chronic left shoulder pain Take 3 Capsules (1,200 mg) by mouth three times daily. 810 Capsule 06/16/19 25 Active omeprazole 20 mg Delayed-Release capsuleIndication s:Gastroesophagea l reflux disease without esophagitis Take 1-2 Capsules (20-40 mg) by mouth once daily before a meal. For stomach acid. 135 Capsule 06/16/19 25 Active tamsulosin 0.4 mg capsuleIndication s:Lower urinary tract symptoms Take 1 Capsule (0.4 mg) by mouth once daily after a meal. 90 Capsule 06/16/19 25 Active propranoloL 20 mg tabletIndications :Tremor Take 1 Tablet (20 mg) by mouth two times daily. 180 Tablet 06/16/19 25 Active sildenafil citrate 100 mg tabletIndications :Erectile dysfunction, unspecified erectile dysfunction type Take 1 Tablet (100 mg) by mouth once daily if needed for Erectile Dysfunction. Take 30 minutes to 4 hours before sexual activity. Max 100mg/24hr. 10 Tablet 06/16/19 25 Active amLODIPine 5 mg tabletIndications :Essential hypertension Take 1 Tablet (5 mg) by mouth once daily. 90 Tablet 06/16/19 25 Active atorvastatin 20 mg tabletIndications :Hypercholesterol emia Take 1 Tablet (20 mg) by mouth once daily. For Cholesterol. 90 Tablet 06/16/19 25 Active metoprolol succinate 100 mg Sustained-Release tabletIndications :Essential hypertension Take 1 Tablet (100 mg) by mouth once daily. 90 Tablet 06/16/19 25 Active diclofenac (VOLTAREN) 75 mg delayed-release tabletIndications :Chronic left shoulder pain,Chronic low back pain, unspecified back pain laterality, unspecified whether sciatica present TAKE 1 TABLET BY MOUTH TWO TIMES DAILY WITH MEALS FOR SEVERE PAIN. DO NOT TAKE OTHER NSAIDS ( NO IBUPROFEN AND NO NAPROXEN). 180 Tablet 2 09/28/19 25 Active polyethylene glycol-electrolyt e (GOLYTELY) 236-22.74-6.74 -5.86 gram suspensionIndicat ions:Positive FIT (fecal immunochemical test) Drink 2 liters (half the bottle) the day before the procedure and 2 liters (half the bottle) 6 hours prior to procedure. 4000 mL 12/16/19 25 Active Active Problems Problem Noted Date Diagnosed Date Positive FIT (fecal immunochemical test) 025 Overview (11/28/2024): Nov 2024: Received message about positive FIT Test outside of [facility], possibly sent to patient by insurance?? Done 11/14/2024 [facility], See scan. NEEDS COLONOSCOPY. Low testosterone in male 07/18/2024 Overview (07/18/2024): July 2024: Dr. Leal, Urology, started on Testosterone replacement. Other male erectile dysfunction 07/18/2024 Overview (07/18/2024): July 2024: Dr. Leal, Urology, started on TriMix injection. Schizophrenia, unspecified type 06/18/2024 Chronic left shoulder [...] Encounters Date Type Department Care Team Description 12/01/2024 Telephone [facility] [address] [place] [address] Twin Griffin MD Screening 11/28/2024 Telephone [facility] [address] [place] [address] Brian Martínez MD Results 11/14/2024 Orders Only [facility] Scanner 1 scan: (1-Ord) MOLECULAR TESTING LABS, FIT [facility], 11/14/2024 11/08/2024 Telephone [facility] [address] [place] [address] Brian Martínez MD Medication Management (Medical Cannabis) 09/25/2024 Refill [facility] [address] [place] [address] Brian Martínez MD Refill Request (Diclofenac) from Last 3 Months Immunizations Immunization Administration Dates Next Due COVID-19 vaccine (Moderna 100mcg/0.5mL) MD CATHYV 06/21/2020,05/24/2020 Hepatitis B (Adult) 12/10/2017,05/27/2017,2015 Influenza Virus, [...] on file 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 Gender Identity Not on file Sexual Orientation [...] Care Team (Late st Contact Info) Description 01/22/2025 10:30 AM ELECTROMECHANICAL EQUIPMENT TESTER Telemedicine [facility] [address] [place] [address] Junior Nelson MD [address] [facility] [address] [place] [address] Scheduled Procedures Name Priority Associated Diagnoses Date/Ti me SURGICAL PROCEDURE (TYPE PROCEDURE DESCRIPTION BELOW) Positive FIT (fecal immunochemical test) Health Maintenance Due Date Last Done Comments HIV for age 15-65 1980 Hepatitis C screening for ag e 18-79 12/09/1983 Pneumococcal series for age 50+ (1 of 2 - PCV) 1984 Colonoscopy through age 75 2010 Tetanus booster 09/15/2023 09/14/2013, 04/09, 05/01/2010, Additional history exists Depression screening for age 12+ 08/29/2024 08/30/19 BMI (ht and wt on same day) for age 18+ 10/21/2024 10/22/2023, 08/30/2023, 10/01/2020, Additional history exists Influenza Vaccine (#1) 2024 6, 01/08/2006, 01/08/2005, Additional history exists Lipids for age 45-75 08/15/2029 08/15/2024, 06/04/2003, 06/04/2003 RSV vaccine for adults or (1 - 1-dose 75+ series) 2040 Hepatitis B series for 19+ Completed 12/10, 05/27/2017, 01/31/2016 Zoster (shingles) series for age 50+ Completed 01/20/2021, 11/15/2020, 05/09/2018, Additional history exists COVID-19 vaccine series Completed 11/16/19, 12/02/2022, 11/27/2021, Additional history exists Medical Devices Implanted Type Area Back Pad Inspector Device Identifier Shelf Expiration Date Model / Serial / Lot [id number] 1cc [place] Plus Paste Dbm Implanted:Qty: 1 on 09/07/2019 by Dane Wharton MD at [facility] Explanted:at [facility] (Quantity not on file) Spine Medtronic Spine/Ortho 11/23/2020 [id number] / [id number] / Spacer Cerv [id number] Vertestack Peek - [id number] Implanted:Qty: 1 on 09/07/2019 by Dane Wharton MD at [facility] Spine [employer]tronic Spine/Ortho 04/06/2027 [id number] / / [id number] Spacer Cerv [id number] Vertestack Peek - [id number] Implanted:Qty: 1 on 09/07/2019 by Dane Wharton MD at [facility] Spine [employer]onic Spine/Ortho 10/28/2026 [id number] / / [id number] Screw Cerv Ant 4x17mm Atlantistranslational Fa Slf Drill - [id number] Implanted:Qty: 2 on 09/07/2019 by Dane Wharton MD at [facility] Spine [employer]tronic Spine/Ortho [id number] / / Screw Cerv Ant 4x17mm Atlantistranslational Va Slf Drill - [id number] Implanted:Qty: 4 on 09/07/2019 by Dane Wharton MD at [facility] Spine [employer]tronic Spine/Ortho [id number] / / Plate Cerv 2lvl 45mm [place] Vision Elite Ant - [id number] Implanted:Qty: 1 on 09/07/2019 by Dane Wharton MD at [facility] Spine [employer] Spine/Ortho [id number] / / Procedures Procedure Name Priority Date/Time Associated Diagnosis Comments SCAN-LABORATORY REPORT 11/14/2024 12:00 AM CDT LIPID PANEL W REFLEX MEASURED LDL Routine 08/15/2024 10:32 AM CDT Hypercholesterolemi a from Last 3 Months or Most Recently Relevant to Health Maintenance Results * SCAN-LABORATORY REPORT (11/14/2024 12:00 AM CDT) us Scanner OTHER Final Result * (ABNORMAL) LIPID PANEL W REFLEX MEASURED LDL (08/15/2024 10:32 AM CDT) CHOLESTEROL, TOTAL 107 <200 mg/dL [facility] HDL CHOLESTEROL 38(L) > OR = 40 mg/dL [facility] TRIGLYCERIDES 167(H) <150 mg/dL [facility] LDL-CHOLESTEROL 44 mg/dL (calc) [facility] Comment: Reference range: <100 Desirable range <100 mg/dL for primary prevention; <70 mg/dL for patients with CHD or diabetic patients with > or = 2 CHD risk factors. LDL-C is now calculated using the Tiwn-Rubio calculation, which is a validated novel method providing better accuracy than the Friedewald equation in the estimation of LDL-C. Twin SS et al. ROMEO. 2013;310(19): 9890-5065 (http://education.[employer] (EBTH)/faq/PRI676) CHOL/HDLC RATIO 2.8 <5.0 (calc) [facility] NON HDL CHOLESTEROL 69 <130 mg/dL (calc) [facility] Comment: For patients with diabetes plus 1 major ASCVD risk factor, treating to a non-HDL-C goal of <100 mg/dL (LDL-C of <70 mg/dL) is considered a therapeutic option. Blood BLOOD SPECIMEN / Unknown 08/15/2024 10:32 AM CDT 08/15/2024 10:33 AM CDT Narrative [facility] - 08/16/2024 4:47 AM CDT FASTING:YES FASTING: YES Brian Martínez MD CHEMISTRY Final Res ult [employer] [facility] [address] [place] [address], [facility] [address] [place] [address] from Last 3 Months or Most Recently Relevant to Health Maintenance Insurance MEDICAID [employer] * Guarantor: HUY PINO Account Type Relation to Patient Date of Phone Billing Address [facility] [address] [place] [address] [facility] DEPT [id number] [address] [place] [address] Advance Directives * Full Code (Latest Code [...] 1:25 PM 10/07/2015 2:42 PM Care Teams Pensions Retirement Plan Specialist Relationship Specialty Start Date End Date Brian Martínez MD [address] [place] [address] PCP - General Family Practice 10/14/23
--- OUTSIDE RECORDS SUMMARY | 2024-12-08 19:37 | XMS_ITS | Encounter Summary ---
Author Organization [place] Address [address] [place] [address]. [place] [address] Care Team Providers Care Service Shop Foreman Name Role Phone Sai Saxena MD Primary Care Provider Unavailable [facility] Primary Care Provider Encounter Details Date Type Department Care Team (Late st Contact Info) Description 09/07/2011 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 [address] [place] [id number] PCP - General 08/29/15 documented as of this encounter
[2024-12-08 19:40] VITALS: BP 143/90; PULSE 80; RESP 18; TEMP 37.1; O2SAT 92; BMI 31.0
--- NOTE | 2024-12-08 19:51 | CRLHL7_ITS ---
For Patients: As a result of the Century Cures Act, medical imaging exams and procedure reports are released immediately into your electronic medical record. You may view this report before your referring provider. If you have questions, please contact your health care provider. Indication: Left upper quadrant pain Technique: CT through the abdomen and pelvis following 116 mL Isovue 370 IV contrast Comparison: CT chest abdomen and pelvis performed 11/09/2023 Findings: Mild degradation from streak artifact. Lower chest: No new or enlarging pulmonary nodules are appreciated. No acute abnormality appreciated. Hepatobiliary: No significant parenchymal abnormality is appreciated. Spleen: Unremarkable. Pancreas: No acute abnormality appreciated. Adrenal glands: No acute abnormality appreciated. Kidneys: No significant parenchymal abnormality appreciated. No visualized calculi. No hydronephrosis. Bowel: No obstruction. No focal perienteric or pericolonic stranding is appreciated. The appendix is visualized and appears unremarkable. Vascular: No acute abnormality appreciated. Atherosclerosis. Lymph nodes: No gross lymphadenopathy. Peritoneum: No free air. No free fluid. : Bladder wall thickening with mild adjacent stranding. Soft tissues: No acute abnormality appreciated. Bones: No acute fracture. No lytic or blastic lesion. L4-S1 fusion. Impression: Bladder wall thickening with mild adjacent stranding, nonspecific but can be correlated for UTI/cystitis. Otherwise, allowing for mild degradation due to streak artifact from spinal fusion, no other acute abnormality is appreciated to account for patient`s reported symptoms. Please note that all CT scans at this facility use dose modulation, iterative reconstruction, and/or weight-based dosing when appropriate to reduce radiation dose to as low as reasonably achievable. Dictated by Eric Bullock MD @ 12/08/2024 8:48:32 PM (Electronically Signed)
--- NOTE | 2024-12-08 19:53 | ED.GENADULT ---
HPI - General Adult General Chief complaint: Chest Pain Stated complaint: sharp pains in chest Time Seen by Provider: 12/08/24 19:47 Source: patient Mode of arrival: ambulatory Limitations: no limitations History of Present Illness HPI narrative: 59-year-old male with a complex medical history, presenting today with left-sided abdominal pain. Pain started about 2 hours ago while he was sitting in his lazy Boy a recliner. He describes it as very sharp, any movement makes it worse. Nothing seems to make it better. It is present at rest. When he takes deep breaths it does not change his pain. He denies any trauma to the area. He denies feeling short of breath, diaphoretic or dizzy. He states that he has been having regular bowel movements, no urinary symptoms. He denies fevers or chills. No nausea or vomiting. He is not short of breath. I ask him to point to his pain and the patient makes a circular motion across the lower chest and the upper left abdomen. Related Data Home Medications ?Medication ?Instructions ?Recorded ?Confirmed trazodone 100 mg tablet 200 mg PO QHS 03/11/23 07/04/24 amlodipine 5 mg tablet 5 mg PO HS 09/24/23 07/04/24 methocarbamol 750 mg tablet 750 mg PO Q8H PRN 09/24/23 07/04/24 omeprazole 20 mg capsule,delayed 20 mg PO DAILY 09/24/23 07/04/24 release propranolol 20 mg tablet 20 mg PO BID 10/01/23 07/04/24 alprazolam 1 mg tablet 1 mg PO HS 11/09/23 07/04/24 atorvastatin 20 mg tablet 20 mg PO HS 11/09/23 07/04/24 diclofenac sodium 75 mg 75 mg PO BID PRN severe pain 11/09/23 07/04/24 tablet,delayed release gabapentin 400 mg capsule 1,200 mg PO TID 11/09/23 07/04/24 metoprolol succinate 100 mg 100 mg PO DAILY 11/09/23 07/04/24 capsule sprinkle, ext. release 24 hr olanzapine 20 mg tablet 20 mg PO HS 11/09/23 07/04/24 prazosin 2 mg capsule 2 mg PO HS 11/09/23 07/04/24 tamsulosin 0.4 mg capsule (Flomax) 0.4 mg PO DAILY 11/09/23 07/04/24 Previous Rx's ?Medication ?Instructions ?Recorded ropinirole 2 mg tablet 2 mg PO BID #180 tabs 03/22/23 quetiapine 400 mg tablet (Seroquel) 800 mg (2 x 400 mg) PO QHS #60 tabs 06/04/23 nitrofurantoin 100 mg PO Q12H 7 days #14 caps 12/08/24 monohydrate/macrocrystals 100 mg capsule (Macrobid) Allergies Allergy/AdvReac Type Severity Reaction Status Date / Time naltrexone AdvReac Unknown Verified 07/04/24 13:26 Review of Systems Status of ROS: Reports: 10 or more systems reviewed and unremarkable except as noted in History and below [facility] Medical History Warts (09/23/04) ?B07.9 - Viral wart, unspecified (ICD-10) Troponin level elevated (05/08/23) ?R79.89 - Other specified abnormal findings of blood chemistry (ICD-10) Trigger middle finger of right hand (09/25/15) ?M65.331 - Trigger finger, right middle finger (ICD-10) Syncope (05/07/23) ?R55 - Syncope and collapse (ICD-10) Sedative, hypnotic or anxiolytic use disorder, severe, dependence (07/20/23) ?F13.20 - Sedative, hypnotic or anxiolytic dependence, uncomplicated (ICD-10) Psychosis (09/17/15) ?F29 - Unspecified psychosis not due to a substance or known physiological condition (ICD-10) Polysubstance abuse (07/19/23) ?F19.10 - Other psychoactive substance abuse, uncomplicated (ICD-10) Neuropathy (09/30/15) ?G62.9 - Polyneuropathy, unspecified (ICD-10) Malaise (09/25/15) ?R53.81 - Other malaise (ICD-10) Ingestion of unknown drug (07/18/23) ?T50.901A - Poisoning by unspecified drugs, medicaments and biological substances, accidental (unintentional), initial encounter (ICD-10) Hyperlipidemia with target LDL less than 130 (02/27/09) ?E78.5 - Hyperlipidemia, unspecified (ICD-10) Headache (05/16/01) ?R51.9 - Headache, unspecified (ICD-10) Generalized headaches (02/27/09) ?R51.9 - Headache, unspecified (ICD-10) Encephalopathy (05/09/23) ?G93.40 - Encephalopathy, unspecified (ICD-10) Drug-induced mood disorder (09/25/15) ?F19.94 - Other psychoactive substance use, unspecified with psychoactive substance-induced mood disorder (ICD-10) Chronic pain syndrome (07/23/23) ?G89.4 - Chronic pain syndrome (ICD-10) Chronic low back pain (09/01/23) ?M54.50 - Low back pain, unspecified (ICD-10) ?G89.29 - Other chronic pain (ICD-10) Chronic left shoulder pain (09/01/23) ?M25.512 - Pain in left shoulder (ICD-10) ?G89.29 - Other chronic pain (ICD-10) Bipolar affective disorder (09/11/15) ?F31.9 - Bipolar disorder, unspecified (ICD-10) Benzodiazepine misuse (05/07/23) ?F13.90 - Sedative, hypnotic, or anxiolytic use, unspecified, uncomplicated (ICD-10) Anxiety disorder (09/11/15) ?F41.9 - Anxiety disorder, unspecified (ICD-10) Amphetamine use disorder, severe, dependence (09/25/15) ?F15.20 - Other stimulant dependence, uncomplicated (ICD-10) 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) ?F10.988 - Alcohol use, unspecified with other alcohol-induced disorder (ICD-10) Alcohol use disorder, severe, dependence (09/25/15) ?F10.20 - Alcohol dependence, uncomplicated (ICD-10) Cervical spondylosis with radiculopathy (09/06/19) ?M47.22 - Other spondylosis with radiculopathy, cervical region (ICD-10) USAMA (acute kidney injury) (05/08/23) ?N17.9 - Acute kidney failure, unspecified (ICD-10) Fracture of left wrist with malunion ?S62.102P - Fracture of unspecified carpal bone, left wrist, subsequent encounter for fracture with malunion (ICD-10) Marijuana abuse ?F12.10 - Cannabis abuse, uncomplicated (ICD-10) Primary hypertension ?I10 - Essential (primary) hypertension (ICD-10) Mixed hyperlipidemia ?E78.2 - Mixed hyperlipidemia (ICD-10) Rupture of right biceps tendon ?S46.211A - Strain of muscle, fascia and tendon of other parts of biceps, right arm, initial encounter (ICD-10) 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) ?F15.21 - Other stimulant dependence, in remission (ICD-10) Allergic rhinitis ?J30.9 - Allergic rhinitis, unspecified (ICD-10) Seborrheic dermatitis ?L21.9 - Seborrheic dermatitis, unspecified (ICD-10) Chronic pain of both shoulders ?M25.511 - Pain in right shoulder (ICD-10) ?M25.512 - Pain in left shoulder (ICD-10) ?G89.29 - Other chronic pain (ICD-10) BPH (benign prostatic hyperplasia) ?N40.0 - Benign prostatic hyperplasia without lower urinary tract symptoms (ICD-10) Spondylosis of cervical spine with radiculopathy (09/06/19) ?M47.22 - Other spondylosis with radiculopathy, cervical region (ICD-10) Restless legs syndrome ?G25.81 - Restless legs syndrome (ICD-10) Posttraumatic stress disorder ?F43.10 - Post-traumatic stress disorder, unspecified (ICD-10) Photokeratitis of both eyes (07/31/18) ?H16.133 - Photokeratitis, bilateral (ICD-10) Insomnia ?G47.00 - Insomnia, unspecified (ICD-10) Hypogonadism in male ?E29.1 - Testicular hypofunction (ICD-10) History of traumatic rupture of spleen ?Z87.828 - Personal history of other (healed) physical injury and trauma (ICD-10) History of psychoactive substance use disorder ?Z87.898 - Personal history of other specified conditions (ICD-10) History of migraine ?Z86.69 - Personal history of other diseases of the nervous system and sense organs (ICD-10) History of gastroesophageal reflux (GERD) ?Z87.19 - Personal history of other diseases of the digestive system (ICD-10) History of alcohol dependence ?F10.21 - Alcohol dependence, in remission (ICD-10) Genital herpes simplex ?A60.00 - Herpesviral infection of urogenital system, unspecified (ICD-10) Gastroesophageal reflux disease (05/16/01) ?K21.9 - Gastro-esophageal reflux disease without esophagitis (ICD-10) Erectile dysfunction ?N52.9 - Male erectile dysfunction, unspecified (ICD-10) 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 - Nightmare disorder (ICD-10) Surgical History H/O umbilical hernia repair (09/27/23) ?Z98.890 - Other specified postprocedural states (ICD-10) ?Z87.19 - Personal history of other diseases of the digestive system (ICD-10) History of arthroscopy of right shoulder (01/13/23) ?Z98.890 - Other specified postprocedural states (ICD-10) S/P arthroscopy of right shoulder (02/11/22) ?Z98.890 - Other specified postprocedural states (ICD-10) History of spinal surgery (1999) ?Z98.890 - Other specified postprocedural states (ICD-10) Status post right rotator cuff repair ?Z98.890 - Other specified postprocedural states (ICD-10) History of surgery on arm ?Z98.890 - Other specified postprocedural states (ICD-10) H/O left wrist surgery ?Z98.890 - Other specified postprocedural states (ICD-10) History of fusion of lumbar spine ?Z98.1 - Arthrodesis status (ICD-10) History of cervical spinal arthrodesis (2019) ?Z98.1 - Arthrodesis status (ICD-10) History of bunionectomy of right great toe (10/27/04) ?Z98.890 - Other specified postprocedural states (ICD-10) Social History Narrative: Lives with mother (Kathy Alvarado - medical decision maker if needed). Single, 2 kids, one son committed suicide, non-smoker, ETOH overuse (24 beers in one sitting most days of the week). Requesting Full Code status. What is your current living situation?: I presently have a place to live Problems where you live: no known problems Problems where you live details: no known problems In the past 12 months, utilities in danger of being shut off: no In past 12 months, lack of transportation kept you from medical appts, meetings, work, or getting things needed for daily living: no In the past 12 mos, have been you worried that your food would run out before you had money to buy more?: never true In the past 12 mos, the food you bought just didn't last and you didn't have money to buy more?: never true Highest level of school completed/degree received: high school graduate Smoking Status: Current every day smoker Do you use any of these nicotine containing products: Vaping Products Second hand tobacco smoke exposure: No Non-prescribed substance use: former substance user and crack/cocaine Non-prescribed substance use details: pt denied use, pt states he is in treatment here in [facility]. Has interlock system on vehicle. Pt has history of ETOH and drug (amphetamine/methamphetamine) use. History of PTSD, Paranoia. Caffeine: Yes How often does anyone, including family, friends and others, physically hurt you: never How often does anyone, including family, friends and others, insult or talk down to you: never How often does anyone, including family, friends and others, threaten you with harm: never How often does anyone, including family, friends and others, scream or curse at you: never service: No Exam Narrative: Exam Narrative: Well-nourished well-developed patient in no acute distress. Alert and oriented x3. Answers questions appropriately. Flat affect. Patient is a poor historian. HEENT: Normocephalic atraumatic. Pupils are equally round reactive to light. Extraocular muscles are intact. Conjunctivae are moist without any icterus noted. Moist mucous membranes. Cardiovascular: Heart is regular rate and rhythm S1 and S2 are present without any murmurs. Lungs: Clear to auscultation bilaterally no wheezes rhonchi or rales are appreciated. Patient takes deep breaths without any discomfort. He points to just under the lower ribs on the left side as the location of his pain. However I cannot elicit pain when I palpate this area. Abdomen: Protuberant and firm. Hypoactive bowel sounds. Left upper quadrant discomfort that comes and goes when I palpated but is not constantly present. Some epigastric discomfort is also present. When asked the patient if it hurts more over the ribs or just under that area, more across the abdomen, he states that he does not know. He has mild discomfort also suprapubically. Skin: Warm, dry and intact Const: Vital Signs, click to edit/add: Vital Signs - 24 hr 12/08/24 19:40 12/08/24 19:54 Temperature 98.8 F Pulse Rate [Pulse Oximeter] 80 Respiratory Rate 18 Blood Pressure [Ri ght Upper Arm] 143/90 H Pulse Oximetry 92 92 Oxygen Delivery Me thod Room Air Course Course ED Course: Differential diagnoses includes musculoskeletal pain, small-bowel obstruction, splenic injury, ulcerative disease, gastritis, PE. EKG, read by me, shows normal sinus rhythm with a pulse of 74. Normal QRS, QTC and KS intervals. CBC appears to be hemoconcentrated, this has happened several times in the past before. 500 mL of normal saline was ordered at this time. UA shows 1+ leukocyte esterase, otherwise unremarkable. Normal lactate D-dimer is normal. Chemistries are unremarkable. LFTs are minimally elevated with an AST of 47 and ALT of 55. Normal CRP. Normal troponin. Normal lipase. CT scan of the abdomen shows bladder wall thickening with some adjacent stranding. Otherwise, unremarkable. No abnormalities of the lower lungs. Repeat EKG shows normal sinus rhythm pulse of 68. Repeat troponin is 0. Re-evaluated the patient at this time. He states that his pain is better. Vital Signs Vital signs: Initial Vital Signs Temperature 98.8 F 12/08/24 19:40 Temperature Source Temporal Artery Scan 12/08/24 19:40 Pulse Rate 80 12/08/24 19:40 Respiratory Rate 18 12/08/24 19:40 Blood Pressure 143/90 H 12/08/24 19:40 Blood Pressure Mean 107 H 12/08/24 19:40 Blood Pressure Position Sitting 12/08/24 19:40 Pulse Oximetry 92 12/08/24 19:40 Oxygen Delivery Method Room Air 12/08/24 19:40 Vital Signs Temperature 98.8 F 12/08/24 19:40 Pulse Rate 80 12/08/24 19:40 Respiratory Rate 18 12/08/24 19:40 Blood Pressure 143/90 H 12/08/24 19:40 Pulse Oximetry 92 12/08/24 19:40 Oxygen Delivery Method Room Air 12/08/24 19:40 Temperature 98.8 F 12/08/24 19:40 Pulse Rate 80 12/08/24 19:40 Respiratory Rate 18 12/08/24 19:40 Blood Pressure 143/90 H 12/08/24 19:40 Pulse Oximetry 92 12/08/24 19:54 Oxygen Delivery Method Room Air 12/08/24 19:40 Medications Administered Medications: Discontinued Medications Generic Name Dose Route Start Last Admin Trade Name Freq PRN Reason Stop Dose Admin Sodium Chloride 500 mls @ 500 mls/hr 12/08/24 20:43 12/08/24 22:08 0.9 % Sodium Chloride 500 Ml IV 12/08/24 21:42 Infused .Q1H ONE Infusion Medical Decision Making MDM Narrative Medical decision making narrative: [age] year old male presenting with abdominal discomfort. Findings are concerning for UTI. Nothing to explain the left upper quadrant pain. Does seem to be musculoskeletal in nature. At this time will treated with Macrobid- patient's creatinine clearance is greater than 60. Will await urine cultures. Lab Data Lab results reviewed: Yes I reviewed the patient's lab results Labs: Lab Results 12/08/24 12/08/24 12/08/24 Range/Units 19:52 20:05 20:25 WBC 7.58 (4.50-11.00) K/uL RBC 6.18 H (4.30-5.90) m/uL Hgb 18.0 H (13.5-17.5) gm/dL Hct 54.9 H (37.0-53.0) % MCV 89 (80-100) fL MCH 29 (26-34) pg MCHC 33 (32-36) gm/dL RDW Coeff of Negro 14.6 (11.5-15.5) % Plt Count 165 (140-440) K/uL Neut % (Auto) 82.4 H (42.0-72.0) % Lymph % (Auto) 10.0 L (20-44) % [place] % (Auto) 4.6 (0.0-11.0) % Eos % (Auto) 0.5 (0.0-7.0) % Baso % (Auto) 0.5 (0.0-3.0) % Neut # (Auto) 6.20 (1.7-7.0) K/uL Lymph # (Auto) 0.80 L (0.90-2.90) K/uL [place] # (Auto) 0.30 (0.00-0.90) K/UL Eos # (Auto) 0.04 (0.00-0.50) K/uL Baso # (Auto) 0.04 (0.00-0.30) K/uL Abs Immat Gran (auto) 0.15 (0.00-0.30) K/uL Imm/Tot Granulo (auto) 2.0 % D-Dimer Quant (PE/DVT) 0.33 (0.00-0.50) ug/ml Sodium 137 (135-149) mmol/L Potassium 4.4 (3.6-5.1) mmol/L Chloride 99 (96-114) mmol/L Carbon Dioxide 32 (20-32) mmol/L Anion Gap 6 L (7-15) mEq/L BUN 12 (7-30) mg/dL Creatinine 1.3 (0.5-1.5) mg/dL Estimated Creat Clear 69.14 Estimated GFR 63 ml/min Glucose 142 H (60-115) mg/dL Lactate 1.8 (0.5-1.9) mmol/L Calcium 8.6 (8.4-10.6) mg/dL Magnesium 2.0 (1.5-2.6) mg/dL Total Bilirubin 0.4 (0.1-1.5) mg/dL Direct Bilirubin 0.3 (0.0-0.5) mg/dL AST 47 H (12-35) U/L ALT 55 H (4-50) U/L Alkaline Phosphatase 93 (40-150) U/L Troponin I < 0.01 (0.01-0.04) ng/mL C-Reactive Protein < 0.5 L (0.5-1.0) mg/dL Total Protein 6.7 (6.0-8.3) g/dL Albumin 3.9 (3.3-5.0) g/dL Lipase 78 (23-300) U/L Urine Color Yellow (Yellow) Urine Appearance Clear (Clear) Urine pH 7.0 (5.0-8.5) Ur Specific [place] 1.015 (1.000-1.030) Urine Protein Negative (Negative) Urine Glucose (UA) Negative (Negative) Urine Ketones Negative (Negative) Urine Blood Negative (Negative) Urine Nitrite Negative (Negative) Urine Bilirubin Negative (Negative) Urine Urobilinogen 1.0 (0.2-1.0) Ur Leukocyte Esterase 1+ A (Negative) Urine RBC 0-2 (0-2) Urine WBC 2-5 (0-5) Ur Squamous Epith Cells None (None-Few) Urine Bacteria None (None) POC Troponin I 0.01 (0.01-0.04) ng/ml Imaging Data CT scan - abdomen: Attestation: I have reviewed the pertinent imaging results. Radiologist's impression: Technique: CT through the abdomen and pelvis following 116 mL Isovue 370 IV contrast Comparison: CT chest abdomen and pelvis performed 11/09/2023 Findings: Mild degradation from streak artifact. Lower chest: No new or enlarging pulmonary nodules are appreciated. No acute abnormality appreciated. Hepatobiliary: No significant parenchymal abnormality is appreciated. Spleen: Unremarkable. Pancreas: No acute abnormality appreciated. Adrenal glands: No acute abnormality appreciated. Kidneys: No significant parenchymal abnormality appreciated. No visualized calculi. No hydronephrosis. Bowel: No obstruction. No focal perienteric or pericolonic stranding is appreciated. The appendix is visualized and appears unremarkable. Vascular: No acute abnormality appreciated. Atherosclerosis. Lymph nodes: No gross lymphadenopathy. Peritoneum: No free air. No free fluid. : Bladder wall thickening with mild adjacent stranding. Soft tissues: No acute abnormality appreciated. Bones: No acute fracture. No lytic or blastic lesion. L4-S1 fusion. Impression: Bladder wall thickening with mild adjacent stranding, nonspecific but can be correlated for UTI/cystitis. Otherwise, allowing for mild degradation due to streak artifact from spinal fusion, no other acute abnormality is appreciated to account for patient`s reported symptoms. ECG Data Attestation: I personally reviewed and interpreted this ECG as follows: Discharge Plan Discharge Clinical Impression: Acute UTI, Musculoskeletal pain Patient Disposition: Home, Self-Care Condition: Stable Additional Instructions: Your phone to having urinary tract infection today. Take all antibiotics as prescribed. Return to the emergency department if you develop fever, vomiting, shortness of breath or worsening pain. Prescriptions: New nitrofurantoin monohyd/m-cryst [Macrobid] 100 mg capsule 100 mg PO Q12H 7 Days Qty: 14 0RF Rx Instructions: must administer with a meal/food No Action propranolol 20 mg tablet 20 mg PO BID trazodone 100 mg tablet 200 mg PO QHS amlodipine 5 mg tablet 5 mg PO HS methocarbamol 750 mg tablet 750 mg PO Q8H PRN omeprazole 20 mg capsule,delayed release(DR/EC) 20 mg PO DAILY alprazolam 1 mg tablet 1 mg PO HS gabapentin 400 mg capsule 1,200 mg PO TID diclofenac sodium 75 mg tablet,delayed release (DR/EC) 75 mg PO BID PRN (Reason: severe pain) olanzapine 20 mg tablet 20 mg PO HS atorvastatin 20 mg tablet 20 mg PO HS tamsulosin [Flomax] 0.4 mg capsule 0.4 mg PO DAILY prazosin 2 mg capsule 2 mg PO HS metoprolol succinate 100 mg capsule,sprinkle,ER 24hr 100 mg PO DAILY ropinirole 2 mg tablet 2 mg PO BID Qty: 180 2RF quetiapine [Seroquel] 400 mg tablet 800 mg PO QHS Qty: 60 1RF Follow Up/Referrals: Brian Martínez MD [Primary Care Provider, Family Practice] Stand Alone Forms: [facility] Info Instructions
[2024-12-08 19:54] VITALS: O2SAT 92
[2024-12-08 20:10] LABS: Appearance Urine Clear (Clear)
[2024-12-08 20:31] LABS: Lactate* 1.8 mmol/L (0.5-1.9)
[2024-12-08 20:33] LABS: Hematocrit* 54.9 % (37.0-53.0); Hemoglobin* 18.0 gm/dL (13.5-17.5); Immature Granulocytes Abs Auto 0.15 K/uL (0.00-0.30); Immature Granulocytes Pct Auto 2.0 %; Mean Corpuscular HGB Conc 33 gm/dL (32-36); Mean Corpuscular Hemoglobin 29 pg (26-34); Mean Corpuscular Volume 89 fL (80-100); RDW Coefficient of Variation % 14.6 % (11.5-15.5); Red Blood Count* 6.18 m/uL (4.30-5.90); White Blood Count* 7.58 K/uL (4.50-11.00)
[2024-12-08 20:35] LABS: Lymphocytes Absolute Auto 0.80 K/uL (0.90-2.90)
[2024-12-08 20:36] LABS: Slide Review Reflex No
--- OUTSIDE RECORDS SUMMARY | 2024-12-08 20:36 | XMS_ITS | CCD ---
Author Organization Unknown Care Team Providers Care Aquaculture Director Name Role Phone Application Software Developer, [place] Primary Care Provider Unava ilable Unavailable Chronic Care Management Unavaila ble Summary Purpose DataExchange Insurance Providers Payer name Policy type / Coverage type Covered republican ID Effective Begin Date Effective End Date [employer] Commercial Insurance [id number] Unkn own Family History Family History data not found Medication Administered No Medication Administered data Reason For Visit No Reason For Visit data
[2024-12-08 20:41] LABS: Troponin, Point-of-Care* 0.01 ng/ml (0.01-0.04)
[2024-12-08 20:47] LABS: Albumin* 3.9 g/dL (3.3-5.0); Chloride* 99 mmol/L (96-114)
[2024-12-08 20:48] LABS: Potassium* 4.4 mmol/L (3.6-5.1); Sodium* 137 mmol/L (135-149)
[2024-12-08 20:50] LABS: Blood Urea Nitrogen* 12 mg/dL (7-30); Creatinine* 1.3 mg/dL (0.5-1.5); Est. Creatinine Clearance* 69.14; Estimated Glomerular Filt Rate 63 ml/min
[2024-12-08 20:51] VITALS: BP 145/93; PULSE 68; RESP 20; O2SAT 92
[2024-12-08 20:51] LABS: Alanine Aminotransferase* 55 U/L (4-50); Alkaline Phosphatase* 93 U/L (40-150); Anion Gap 6 mEq/L (7-15); Aspartate Amino Transferase* 47 U/L (12-35); Bilirubin Direct* 0.3 mg/dL (0.0-0.5); Bilirubin Total* 0.4 mg/dL (0.1-1.5); Calcium* 8.6 mg/dL (8.4-10.6); Carbon Dioxide* 32 mmol/L (20-32); Glucose* 142 mg/dL (60-115); Total Protein* 6.7 g/dL (6.0-8.3)
[2024-12-08] MEDS: 0.9 % SODIUM CHLORIDE 500 ML 500 ML IV (20:51)
[2024-12-08 20:52] LABS: D Dimer Quantitative* 0.33 ug/ml (0.00-0.50)
--- OUTSIDE RECORDS SUMMARY | 2024-12-08 21:48 | XMS_ITS | CCD ---
Author Organization Unknown Care Team Providers Care Hosting Engineer Name Role Phone Head Of Acquisitions, [place] Primary Care Provider Unava ilable Unavailable Chronic Care Management Unavaila ble Summary Purpose DataExchange Insurance Providers Payer name Policy type / Coverage type Covered constitution party ID Effective Begin Date Effective End Date [employer] Commercial Insurance [id number] Unkn own Family History Family History data not found Medication Administered No Medication Administered data Reason For Visit No Reason For Visit data
--- OUTSIDE RECORDS SUMMARY | 2024-12-08 21:48 | XMS_ITS | CCD ---
Author Organization Unknown Care Team Providers Care Concrete Pile Driver Operator Name Role Phone Budget Engineer, [place] Primary Care Provider Unava ilable Unavailable Chronic Care Management Unavaila ble Summary Purpose DataExchange Insurance Providers Payer name Policy type / Coverage type Covered libertarian ID Effective Begin Date Effective End Date [employer] Commercial Insurance [id number] Unkn own Family History Family History data not found Medication Administered No Medication Administered data Reason For Visit No Reason For Visit data
[2024-12-08 22:13] VITALS: BP 144/96; PULSE 70; RESP 20; O2SAT 93
[2024-12-08 22:29] LABS: Troponin, Point-of-Care* 0.00 ng/ml (0.01-0.04)
== END 2024-12-08 22:40 | disposition home or self-care (01) ==
PROVIDERS: Emergency Provider Family Medicine; PCP Family Medicine
DX: R07.89 Other chest pain (principal); N39.0 Urinary tract infection, site not specified
CPT/HCPCS: 36415; 74177; 80048; 80076; 81001; 83605; 83690; 83735; 84484; 85025; 85379; 86140; 87086; 93005; 94761; 96360; 99284; 99285; J7030; Q9967